=== PATIENT | female | born 1940 | race Caucasian/White ===

== ENCOUNTER 2017-11-25 15:48 | Inpatient (IN) | payer MEDICARE, SELFPAY ==
[2017-11-25] VITALS (11 sets, daily range): BP systolic 112–187; BP diastolic 56–94; PULSE 68–119; RESP 16–21; TEMP 36.9–37.6; O2SAT 96–98; BMI 30.3; BMI 30.4; BMI 30.5
--- NOTE | 2017-11-25 16:21 | CT_ITS ---
STUDY: CT BRAIN WITHOUT CONTRAST REASON FOR EXAM: Female, 77 years old. Dizziness near syncope, fall hit head RADIATION DOSAGE (If Supplied By Facility): CTDIvol = ( 44.99 ) mGy, DLP = ( 829.85 ) mGycm TECHNIQUE: Transaxial CT imaging of the brain was performed without administration of intravenous contrast material. Individualized dose optimization techniques were used for this CT. COMPARISON: None. FINDINGS: Normal soft tissue structures. Normal calvarium. There is calcification of the vertebral artery. There is calcification of the cavernous carotid arteries. There is mild cerebral atrophy with widening of the extra-axial spaces and ventricular dilatation. There are areas of decreased attenuation within the white matter tracts of the supratentorial brain, consistent with microvascular disease changes. Normal basal ganglia and thalami. Normal brainstem. There is moderate cerebellar atrophy. There is no intracranial hemorrhage. There is a focus of low attenuation within the left side basal ganglia and extending to the left side periventricular white matter compatible with old ischemic change. Normal visualized paranasal sinuses. CT/Brain/Head without Contrast IMPRESSION: Atrophy. 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 No evidence of acute hemorrhage infarct or edema. Electronically Signed: Gisela Ly MD at 17:21 EST Tel , Service support ,
--- NOTE | 2017-11-25 16:21 | EKG12_ITS ---
Test Reason : DIZZINESS Blood Pressure : / mmHG Vent. Rate : 093 BPM Atrial Rate : 093 BPM P-R Int : 166 ms QRS Dur : 088 ms QT Int : 350 ms P-R-T Axes : 091 017 050 degrees QTc Int : 435 ms Normal sinus rhythm Normal ECG Confirmed by ANABEL RICKS, MATT ([id number]), news videotape editor ATILIO ROTHMAN ([id number]) on 11/28/2017 11:22:38 AM Referred By: SAYDA Confirmed By:MATT LITTLE MD
--- NOTE | 2017-11-25 16:26 | ED.VISSUMM ---
- ER Visit Summary Date of Service: 11/25/17 Chief Complaint: Dizziness and fall History of Present Illness: The patient is a 77 F who was with her today walking on the [employer] pathway when she began to lean and eventually fell down. She struck her left face on the walking path. No loss of conscious. She broke her glasses and notes some left-sided facial abrasion and contusions. They left there and came back to [place] where she got her eyeglasses fixed. They then brought her to the emergency department. She states that she is not dizzy. She denies any sensation of lightheadedness or that the room is spinning. She states her legs feel weaker than normal and believes it is due to her recent URI. She states that for the past 2 weeks she has had cough runny nose and congestion and sore throat. She denies any chest pain or shortness of breath. She states that she has no ringing in her ears or decreased hearing. No fevers. No bowel or bladder dysfunction. She states she can lift her legs up just fine. Her tells me that she fell twice yesterday. He tells me that they parked 50 yards from the emergency department and he had to help her in. She denies any significant medical problems stating that she has had bilateral hip replacements and she takes a sleeping pill. She states that she sees Dr. Minaya once a year. Physical Examination: Blood pressure 160/89 temperature of 99 heart rate of 104 respirations are 16 pulse ox is 97% Gen: Well-nourished well-developed Head: Normocephalic left facial and forehead abrasion and contusion. No difficulty opening or closing mouth. No dental trauma. Eyes: Perrl EOMI ENT: TMs clear nasal congestion moist mucous membranes septal hematoma Neck: Supple no lymphadenopathy no JVD nontender CVS: Tachycardic regular rate rhythm no murmurs normal S1-S2 Respiratory: No distress clear to auscultation bilaterally chest nontender Abdomen: Soft nontender nondistended normal bowel sounds no masses Back: Nontender Extremity: Nontender no edema Skin: Normal color no rash Neuro: alert orientated ?3 CN II-XII intact normal strength sensation reflexes cerebellar Psych: Normal affect normal mood Test Results: EKG shows a sinus rhythm at a rate of 93. There are no concerning ST T-wave changes. Chest x-ray shows a left lingular infiltrate. White blood cell count is normal. Glucose of 140. Troponin 0 0.652. CTA demonstrates no aortic dissection or pulmonary embolism. Noted infiltrate. Emergency Department Course and Treatment: Patient received IV fluids. She also received a dose of aspirin. Orthostatics showed that with standing her pulse went from 96-119. When the patient ambulates her pulse ox is 94% but her heart rate is substantially elevated. I suspect the patient had a viral illness which then led to lingular infiltrate. This in turn has caused increased demand on the heart. Patient received Rocephin and azithromycin. Plan is admission to the hospital. DARRIN score is 2 out of 7 Impression: 1. Pneumonia 2. Sepsis 3. NSTEMI This note was generated with [employer] dictation software. It may contain incorrect words, spelling, and punctuation that were not noted in review of the chart prior to signing ED Disposition - Plan for ED Patient: Disposition: Acute Care Hospital [facility] Chief Complaint: Dizziness
--- NOTE | 2017-11-25 16:29 | ED.DCSUM_ITS ---
- ER Visit Summary Date of Service: 11/25/17 Chief Complaint: Dizziness and fall History of Present Illness: The patient is a 77 F who was with her today walking on the [employer] pathway when she began to lean and eventually fell down. She struck her left face on the walking path. No loss of conscious. She broke her glasses and notes some left-sided facial abrasion and contusions. They left there and came back to [place] where she got her eyeglasses fixed. They then brought her to the emergency department. She states that she is not dizzy. She denies any sensation of lightheadedness or that the room is spinning. She states her legs feel weaker than normal and believes it is due to her recent URI. She states that for the past 2 weeks she has had cough runny nose and congestion and sore throat. She denies any chest pain or shortness of breath. She states that she has no ringing in her ears or decreased hearing. No fevers. No bowel or bladder dysfunction. She states she can lift her legs up just fine. Her tells me that she fell twice yesterday. He tells me that they parked 50 yards from the emergency department and he had to help her in. She denies any significant medical problems stating that she has had bilateral hip replacements and she takes a sleeping pill. She states that she sees Dr. Minaya once a year. Physical Examination: Blood pressure 160/89 temperature of 99 heart rate of 104 respirations are 16 pulse ox is 97% Gen: Well-nourished well-developed Head: Normocephalic left facial and forehead abrasion and contusion. No difficulty opening or closing mouth. No dental trauma. Eyes: Perrl EOMI ENT: TMs clear nasal congestion moist mucous membranes septal hematoma Neck: Supple no lymphadenopathy no JVD nontender CVS: Tachycardic regular rate rhythm no murmurs normal S1-S2 Respiratory: No distress clear to auscultation bilaterally chest nontender Abdomen: Soft nontender nondistended normal bowel sounds no masses Back: Nontender Extremity: Nontender no edema Skin: Normal color no rash Neuro: alert orientated ?3 CN II-XII intact normal strength sensation reflexes cerebellar Psych: Normal affect normal mood Test Results: EKG shows a sinus rhythm at a rate of 93. There are no concerning ST T-wave changes. Chest x-ray shows a left lingular infiltrate. White blood cell count is normal. Glucose of 140. Troponin 0 0.652. CTA demonstrates no aortic dissection or pulmonary embolism. Noted infiltrate. Emergency Department Course and Treatment: Patient received IV fluids. She also received a dose of aspirin. Orthostatics showed that with standing her pulse went from 96-119. When the patient ambulates her pulse ox is 94% but her heart rate is substantially elevated. I suspect the patient had a viral illness which then led to lingular infiltrate. This in turn has caused increased demand on the heart. Patient received Rocephin and azithromycin. Plan is admission to the hospital. DARRIN score is 2 out of 7 Impression: 1. Pneumonia 2. Sepsis 3. NSTEMI This note was generated with [employer] dictation software. It may contain incorrect words, spelling, and punctuation that were not noted in review of the chart prior to signing ED Disposition - Plan for ED Patient: Disposition: Acute Care Hospital [facility] Chief Complaint: Dizziness
[2017-11-25] MEDS: 0.9% Normal Saline 1,000 ML 1000 ML IV (16:32)
[2017-11-25 16:53] LABS: Absolute Lymphocyte Count 1.23 X10^3/ul (0.83-4.51); Absolute Neutrophil Count 8.4 X10^3/uL (2.0-7.7); Basophil# 0.02 X10^3/uL; Basophil% 0.2 % (0-1); Hemoglobin 13.2 g/dl (12.0-15.0); Lymphocyte # 1.23 X10^3/ul (4.0); Lymphocyte % 11.2 % (19-41); Mean Corp Hgb Conc 33.8 g/gl (32-36); Mean Corpuscular Hgb 30.4 pg (27.0-32.0); Mean Corpuscular Volume 89.9 fL (81-99); Monocyte# 1.33 X10^3/uL; Monocyte% 12.1 % (0-10); Neutrophil # 8.38 X10^3/uL (2.7-7.7); Neutrophil % 76.3 % (47-70); Platelet Count 149 K/mm3 (150-450); RBC Distribution Width CV 13.5 % (11.6-14.6); RBC Distribution Width SD 44.5 fl (35.1-43.9); Red Blood Count 4.34 M/mm3 (4.2-5.4)
--- NOTE | 2017-11-25 16:55 | RAD_ITS ---
STUDY: X-RAY CHEST REASON FOR EXAM: Female, 77 years old. Cough, dizziness TECHNIQUE: PA and lateral views of the chest. COMPARISON: None. FINDINGS: There is a patchy focal lingular opacity. There is no demonstrated pleural abnormality. Normal size heart. Normal mediastinum and gabby. Normal visualized pulmonary arteries. There is atherosclerotic calcification of the aortic arch with tortuosity. There are diffuse degenerative changes of the visualized thoracic spine. Normal visualized ribs, clavicles, and shoulders. There is no demonstrated abnormality of the visualized soft tissue structures of the upper abdomen. RAD/Chest PA and Lateral IMPRESSION: Findings are most consistent with lingular pneumonia. N.B. : The above information has been verbally conveyed by Gisela Ly MD to Dr. Troy Stern, Referring Physician, on 11/25/2017 17:58:07 (ET). Electronically Signed: Gisela Ly MD at 17:43 EST Tel , Service support , N.B. : The above information has been verbally conveyed by Gisela Ly MD to Dr. Troy Stern, Referring Physician, on 11/25/2017 17:58:07 (ET).
[2017-11-25 16:59] LABS: ALB/GLOB Ratio 0.7 RATIO (0.9-2.4); AST(SGOT) 93 U/L (15-37); Alanine Aminotransfer ALT/SGPT 27 U/L (13-56); Albumin, Serum 3.3 g/dL (3.2-5.0); Alkaline Phosphatase 63 U/L (45-117); Anion Gap 8 (5-15); BUN 19 mg/dL (7-18); BUN/Creat Ratio 20.3 RATIO (10-20); Calcium,Total 8.9 mg/dL (8.5-10.1); Chloride 101 mmol/L (98-107); Creatinine, Serum 0.93 mg/dL (0.55-1.02); EST Glomerular Filtration Rate 62 mL/min (>60); Est Glom Filt Rate - Afr Amer 75 mL/min (>60); Estimated Creatinine Clearance 44.86 ml/min; Globulin 4.7 g/dL (2.2-4.2); Glucose 140 mg/dL (70-110); POSITIVE COUNT NO; POSITIVE DIFFERENTIAL NO; POSITIVE MORPHOLOGY NO; Potassium 3.5 mmol/L (3.5-5.1); Sodium Level 133 mmol/L (136-145)
--- NOTE | 2017-11-25 17:24 | CT_ITS ---
STUDY: CTA CHEST/THORAX REASON FOR EXAM: Female, 77 years old. Dyspnea. RADIATION DOSAGE (If Supplied By Facility): CTDIvol = ( 12.79 ) mGy, DLP = ( 411.38 ) mGycm TECHNIQUE: The examination was performed with the intravenous administration of 100 ml of Isovue 370 contrast material. Post-processing of the angiographic images was performed, with multiplanar reformation and 3D reconstruction. Individualized dose optimization techniques were used for this CT. COMPARISON: PA and lateral chest x-ray 1658 hours. FINDINGS: Normal enhancement of the main pulmonary artery and right and left pulmonary arteries. Normal enhancement of the bilateral peripheral pulmonary arteries. There is no demonstrated pulmonary embolism. There is atherosclerotic calcification of the aortic arch, proximal brachiocephalic arteries, and descending thoracic aorta.. There is no demonstrated aortic dissection. The heart size is upper normal. There are calcifications of the coronary arteries. 18 x 9 x 7 mm precarinal lymph node and 17.5 x 8 x 11 mm low pretracheal lymph node are likely reactive. There are nonspecific subcentimeter lymph nodes in the aorticopulmonary window. Normal hilar regions. Normal visualized trachea and right lung bronchi. There is mild narrowing of the central bronchial branch to the lingula of the left upper lobe. There is a segmental pneumonic infiltrate with air bronchograms in the lingula of the left upper lobe, correlating to the density seen on chest x-ray. There is curvilinear scarring or subsegmental atelectasis in the anterior inferior right middle lobe. Minor pleural parenchymal scarring in the posterior margin of the left base. No dependent pleural effusion. Normal chest wall structures. There are degenerative changes of the thoracic spine, and a 14-15 degree dextroscoliosis centered at T7. Subcentimeter low densities in the subcapsular anterior left lobe of the liver (series 2 image 42) and visualized right lobe (images 15 and 2) may be cysts or hemangiomata. There is a small hiatal hernia. CT/CTA Chest W/WO Contrast IMPRESSION: 1. No demonstrated pulmonary embolism or arterial dissection. 2. Lingular pneumonic infiltrate, correlating to the density seen on chest x-ray. 3. Additional scarring in the lung bases, as noted. 4. Atherosclerotic calcifications of the coronary arteries, thoracic aorta, and proximal brachiocephalic arteries. 5. Subcentimeter low densities in the liver may be cysts or hemangiomata. 6. Small hiatal hernia. Electronically Signed: Mo Mccray MD at 19:02 EST , Service support ,
[2017-11-25 17:39] LABS: Color, Urine Yellow (Yellow); Glucose, Dipstick Normal (Normal); Ketone-Dipstick 5 mg/dl (Negative); Leukocyte Esterase-Dipstick 100 /ul (Negative); Nitrite-Dipstick Negative (Negative); Occult Blood-Urine 250 /ul (Negative); Protein-Dipstick 500 mg/dl (Negative); Specific Gravity, Urine 1.025 (1.002-1.030); Squamous Epithelial Cells - UA 0 SEEN /hpf (5-10); Urine Bilirubin Dipstick Negative (Negative); Urine Clarity Sl. Cloudy (Clear); Urine Urobilinogen Normal (Normal)
[2017-11-25 17:51] LABS: Mucous, Urine 1+ /hpf (<or=2+); White Blood Cells 0-5 SEEN /hpf (0-5)
[2017-11-25 17:52] LABS: Bacteria RARE /hpf (None Seen); Red Blood Cells-Urine 5-10 SEEN /hpf (0-5)
[2017-11-25] MEDS: Aspirin 325 MG Tablet PO (18:11)
[2017-11-25 18:47] LABS: Lactic Acid 1.4 mmol/L (0.4-2.0)
--- NOTE | 2017-11-25 20:32 | HP.PCM_ITS ---
Problem List (1) Near syncope Status: Acute (2) Fall Status: Acute (3) Generalized weakness Status: Acute (4) Left lingularlobe CAP Status: Acute (5) Elevated troponin I level Status: Acute (6) Hypertension Status: Chronic (7) Prediabetes Status: Chronic History of Present Illness Date of Admission: 11/25/17 Chief Complaint: Dizziness and fall The patient is a 77 year old F with past medical history as mentioned above but no significant cardiac or pulmonary history came to ER because she fell down and hit the left side of the face. She felt dizzy and felt her both legs were weak and fell down on [employer] glass. Besides that, she has been sick with cold and sore throat for last 3 weeks. Initially she had cold, runny nose and sore throat for for 5 days and then went away. Again she had similar symptoms this week. She has history of bilateral hip replacement but has never felt that week. In ED, she had chest x-ray and CT chest done. CT chest shows left lingular infiltrate suggestive of pneumonia but no PE/aortic dissection. WBC count is normal. She had high troponin 0 0.65. EKG shows normal sinus rhythm at [address]-T changes suggestive of ischemia. When I saw her, she denies dizziness, vertigo. Orthostatic vital signs showed her pulse went up from 96-119 and blood pressure 159/78-185/71 from lying to standing up position. She is further admitted. [] Past Medical History Past Medical History (Chronic Problems): Chronic Problems Hypertension (Chronic) Prediabetes (Chronic) Allergies No Known Allergies Allergy (Verified 11/25/17 15:52) Home Medications: Ambulatory Orders Medication Instructions Recorded Brimonidine Tartrate 0.2% 1 drop EACH EYE DAILY 11/25/17 [Brimonidine 0.2% 5Ml Bottle] Dorzolamide HCl/Timolol Maleat 1 drop EACH EYE BID 11/25/17 [Dorzolamide-Timolol Eye Drops] Latanoprost 0.005% [Xalatan 11/25/17 Opthalmic] Temazepam [Temazepam] 30 mg PO QHS 11/25/17 Lives: Spouse/ Significant Other Smoking Status: Never smoker Alcohol: None - *Family History Paternal History Items: No pertinent history Review of Systems Constitutional: Reports: Chills, Malaise, Weakness. Denies: Anorexia, Fever HEENT: Denies: Head Aches, Sinus Congestion, Sinus Drainage Cardiovascular: Denies: Chest Pain, Palpitations Respiratory: Reports: Cough, Shortness of breath upon exertion. Denies: Shortness of breath at rest, Sputum production Gastrointestinal: Denies: Abdominal Pain, Nausea, Vomiting Genitourinary: Denies: Dysuria Musculoskeletal: Reports: Joint Pain. Denies: Joint Tenderness Skin: Reports: Skin Changes - Bruise. Denies: Rash, Wounds Neurological: Denies: Numbness, Tingling, Focal weakness Psychiatric: Denies: Anxiety, Depression, Homicidal Ideations, Suicidal Ideations Hematologic/ Lymphatic: Denies: Easy Bruising, Easy Bleeding VTE Information - Inpt Only VTE Present on Admission: No VTE Mechan Device Prophylaxis: SCD's VTE Pharm Prophylaxis ordered?: Yes Patient Problems: Active and Suspected Problems Near syncope (Acute) Fall (Acute) Generalized weakness (Acute) Left lingularlobe CAP (Acute) Elevated troponin I level (Acute) - Physical Exam General: Alert, Oriented x3, Cooperative HEENT: Atraumatic, PERRLA, EOMI, Normocephalic Oral: Dry Mucosa Neck: Supple, No JVD, Negative Carotid Bruits Lungs: No rhonchi, Diminished, Rales - Coarse rales present on the left infra axillary region Cardiovascular: Regular rate, No murmurs Abdomen: Bowel Sounds Present, Soft, Non Tender Extremities: Capillary Refill Less than 3 Seconds, Edema - Bilateral lower legs edema Skin: No rashes, No breakdown Musculoskeletal: No Tenderness to Palpation of Joints or Extremities, Arthritic Changes Neurological: Cranial nerves II-XII grossly intact, - - Bilateral lower legs weakness, 3/5. Psych/Mental Status: Normal Affect, Appropriate Vital Signs Temp Pulse Resp BP Pulse Ox 99.7 F H 86 20 H 180/72 H 97 11/25/17 20:07 11/25/17 20:07 11/25/17 20:07 11/25/17 20:08 11/25/17 20:07 Oxygen Delivery Method Room Air Weight: 183 lb 3.2 oz Body Mass Index (BMI) 30.4 Assessment/Plan Active and Suspected Problems Near syncope (Acute) Fall (Acute) Generalized weakness (Acute) Left lingularlobe CAP (Acute) Elevated troponin I level (Acute) The patient is a 77 year old F with past medical history as mentioned above but no significant cardiac or pulmonary history came to ER because she fell down and hit the left side of the face. She felt dizzy and felt her both legs were weak and fell down on [employer] glass. Besides that, she has been sick with cold and sore throat for last 3 weeks. Initially she had cold, runny nose and sore throat for for 5 days and then went away. Again she had similar symptoms this week. She has history of bilateral hip replacement but has never felt that week. In ED, she had chest x-ray and CT chest done. CT chest shows left lingular infiltrate suggestive of pneumonia but no PE/aortic dissection. WBC count is normal. She had high troponin 0 0.65. EKG shows normal sinus rhythm at [address]-T changes suggestive of ischemia. When I saw her, she denies dizziness, vertigo. Orthostatic vital signs showed her pulse went up from 96-119 and blood pressure 159/78-185/71 from lying to standing up position. She is further admitted to the PCU floor. 1 generalized weakness most probably due to Left lingular lobe, community acquired pneumonia: Patient is being admitted on the monitored bed. Started on IV Rocephin and Zithromax as per the protocol with orders of lactic acid, sputum culture, urinary antigens and bronchodilator as needed. Mucinex for symptomatic cough. 2. High troponin with no ischemic changes on EKG and no chest pain but concern of NSTEMI: Patient denies any previous CAD history or CHF. Cycle cardiac enzymes. 2D echo ordered. Started on aspirin, Plavix, beta-madhu and ARB and nitro ointment as needed for chest pain. Cardiology consult. Low DARRIN score 2/7. BNP, fasting lipid profile and TSH ordered 3. Generalized weakness and fall probably due to pneumonia: PT and OT ordered. IV fluid normal saline for dehydration. Treat the underlying cause. 4. Elevated blood pressure possible undiagnosed hypertension: Started on valsartan 80 mg daily. Titrate the dose. 5. Elevated blood sugar, possible prediabetes/diabetes mellitus type 2: Blood sugar in BMP is 140 mg percent. A1c ordered. Accu-Chek before meals and at bedtime and cover with NovoLog sliding scale. 6. 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 DVT prophylaxis: Moderate risk, Lovenox 40 mils subcu daily and bilateral SCDs. Code Visit Inpatient E&M: 98512 Init Hosp L3
[2017-11-25 21:32] LABS: International Normalized Ratio 1.2; Prothrombin Time (Protime)PT. 14.8 SECONDS (11.7-14.9)
[2017-11-25 21:33] LABS: Partial Thromboplast Time 37.6 Seconds (24.1-36.2)
[2017-11-25 21:50] LABS: Lactic Acid 1.1 mmol/L (0.4-2.0); Magnesium 1.7 mg/dL (1.6-2.6)
[2017-11-25] MEDS: 0.9% NaCl Peripheral Flush Adult/Peds IV (21:53)
[2017-11-25] MEDS: 0.9% Normal Saline 1,000 ML 100 ML IV (21:54)
[2017-11-25] MEDS: Enoxaparin 40 MG/0.4 ML Syringe SC (21:59)
[2017-11-25] MEDS: BRIMONIDINE 0.2% 5ML BOTTLE 2 DRP EACH EYE (22:00)
[2017-11-25] MEDS: Carvedilol 6.25 MG Tablet PO (22:01)
[2017-11-25] MEDS: guaiFENesin 600 MG Tablet 1200 MG PO (22:01)
[2017-11-25] MEDS: Latanoprost 0.005% 1 Bottle 1 DRP EACH EYE (22:02)
[2017-11-25] MEDS: Atorvastatin Calcium 40 MG Tablet PO (22:02)
[2017-11-25] MEDS: Famotidine 20 MG Tablet PO (22:03)
[2017-11-25] MEDS: Temazepam 15 MG Capsule 30 MG PO (22:10)
--- NOTE | 2017-11-25 22:17 | EKG12_ITS ---
Test Reason : MORNING EKG Blood Pressure : / mmHG Vent. Rate : 081 BPM Atrial Rate : 081 BPM P-R Int : 182 ms QRS Dur : 096 ms QT Int : 382 ms P-R-T Axes : 067 014 032 degrees QTc Int : 443 ms Sinus rhythm with Premature supraventricular complexes Otherwise normal ECG No previous ECGs available Confirmed by CAMILLE RAMIREZ ([id number]), order editor ATILIO ROTHMAN ([id number]) on 11/28/2017 12:05:36 PM Referred By: RAVINDER Confirmed By:CAMILLE RAMIREZ
[2017-11-25 22:21] LABS: Bedside Glucose 129 mg/dL (70-110)
[2017-11-25 22:37] LABS: BNP,B-Type NATRIURETIC PEPTIDE 140.1 pg/mL (0-100)
[2017-11-26] VITALS (10 sets, daily range): BP systolic 129–171; BP diastolic 60–89; PULSE 68–80; RESP 16–18; TEMP 37.2–37.9; O2SAT 95–98
--- NOTE | 2017-11-26 05:55 | ECHOD_ITS ---
Reason For Study: ELEVATED TROPONIN Procedure This was a 2D Doppler, Color Flow transthoracic echocardiogram. The exam was of poor technical quality due to body habitus. The study was technically difficult. Exam performed portable in patient room. Left Ventricle Normal LV size. Left ventricular systolic function is normal. The estimated ejection fraction is 65 %. No regional wall motion abnormalities noted. Right Ventricle Normal RV size. Normal systolic function. Atria Normal left atrium. Normal right atrium. No doppler evidence for ASD. Mitral Valve There is mild to moderate mitral annular calcification. Extension of the mitral annular calcification onto the posterior mitral valve leaflet. Trivial mitral valve insufficiency. Tricuspid Valve Normal tricuspid valve. Trivial tricuspid valve insufficiency. Right ventricular systolic pressure estimated to be 30 mmHg. Aortic Valve The aortic valve is not well visualized, however, based upon the 2D echocardiographic images obtained there appears to be mild focal thickening, calcification, and partial restriction. Mild aortic stenosis. Trivial aortic valve insufficiency. Pulmonic Valve The pulmonic valve is not well visualized. Great Vessels Normal sized aortic root. Pericardium/Pleural No pericardial effusion. MMode/2D Measurements & Calculations LVIDd: 4.4 cm IVSd: 0.94 cm LVOT diam: 2.0 cm LVIDs: 3.2 cm LVPWd: 1.0 cm LVOT area: 3.1 cm2 RVDd: 3.0 cm FS: 27.6 % Ao root diam: 2.6 cm LAV(MOD-bp): 61.0 ml LA A4 area: 19.7 cm2 LA dimension: 3.1 cm LAV(MOD-bp) Indexed: 32.0 ml/m2 LAV(MOD-sp2): 61.5 ml LAV(MOD-sp4): 61.2 ml RA A4 area: 14.8 cm2 Doppler Measurements & Calculations MV E max bari: 97.3 cm/sec Lat Peak E' Bari: 7.6 cm/sec Med Peak E' Bari: 7.9 cm/sec MV A max bari: 115.1 cm/sec E/E' lat: 12.9 E/E' med: 12.4 MV E/A: 0.85 Ao V2 max: 267.8 cm/sec LV V1 max: 141.9 cm/sec SV(LVOT): 78.0 ml Ao max P.7 mmHg LV V1 max P.1 mmHg Ao V2 mean: 182.6 cm/sec LV V1 mean P.3 mmHg Ao mean P.9 mmHg LV V1 mean: 98.1 cm/sec Ao V2 VTI: 52.8 cm LV V1 VTI: 25.3 cm EFFIE(I,D): 1.5 cm2 EFFIE(V,D): 1.6 cm2 PA V2 max: 107.9 cm/sec TR max bari: 258.1 cm/sec TR max P.7 mmHg Interpretation Summary The study was technically difficult. Left ventricular systolic function is normal. The estimated ejection fraction is 65 %. There is mild to moderate mitral annular calcification. Extension of the mitral annular calcification onto the posterior mitral valve leaflet. Trivial mitral valve insufficiency. Trivial tricuspid valve insufficiency. The aortic valve is not well visualized, however, based upon the 2D echocardiographic images obtained there appears to be mild focal thickening, calcification, and partial restriction. Mild aortic stenosis. Trivial aortic valve insufficiency. Right ventricular systolic pressure estimated to be 30 mmHg. Ordering Physician: Manny Murdock Referring Physician: Eh Huddleston Chi Performed By: Berta Walls RDCS, RVT
[2017-11-26 07:01] LABS: Bedside Glucose 116 mg/dL (70-110)
[2017-11-26 07:28] LABS: Absolute Lymphocyte Count 1.11 X10^3/ul (0.83-4.51); Absolute Neutrophil Count 4.2 X10^3/uL (2.0-7.7); Basophil# 0.01 X10^3/uL; Basophil% 0.2 % (0-1); Eosinophil# 0.11 X10^3/uL; Eosinophils% 1.7 % (0-5); Hematocrit 34.3 % (37-47); Hemoglobin 11.5 g/dl (12.0-15.0); Lymphocyte # 1.11 X10^3/ul (4.0); Lymphocyte % 17.3 % (19-41); Mean Corp Hgb Conc 33.5 g/gl (32-36); Mean Corpuscular Hgb 30.4 pg (27.0-32.0); Mean Corpuscular Volume 90.7 fL (81-99); Mean Platelet Vol. 11.4 fl (6.2-12.0); Monocyte# 0.96 X10^3/uL; Neutrophil # 4.21 X10^3/uL (2.7-7.7); Neutrophil % 65.6 % (47-70); Platelet Count 120 K/mm3 (150-450); RBC Distribution Width CV 13.7 % (11.6-14.6); RBC Distribution Width SD 44.4 fl (35.1-43.9); Red Blood Count 3.78 M/mm3 (4.2-5.4); White Blood Count 6.4 K/mm3 (4.4-11.0)
[2017-11-26 07:37] LABS: POSITIVE COUNT NO; POSITIVE DIFFERENTIAL NO; POSITIVE MORPHOLOGY NO
[2017-11-26 07:52] LABS: Hemoglobin A1c 5.7 % (4.2-6.3)
[2017-11-26 07:59] LABS: Cholesterol 181 mg/dL (200); High Density Lipoprotein 38 mg/dL; Thyroid Stim Hormone (TSH) 1.17 uIU/mL (0.358-3.74); Triglycerides 127 mg/dL; Very Low Density Lipoprotein 25 mg/dL (5-40)
[2017-11-26] MEDS: 0.9% Normal Saline 1,000 ML 100 ML IV ×2 (08:22→20:39)
[2017-11-26] MEDS: BRIMONIDINE 0.2% 5ML BOTTLE 2 DRP EACH EYE ×2 (10:06→18:08)
[2017-11-26] MEDS: guaiFENesin 600 MG Tablet 1200 MG PO ×2 (10:16→22:37)
[2017-11-26] MEDS: Aspirin E.C. 81 MG Tablet PO (10:16)
[2017-11-26] MEDS: Carvedilol 6.25 MG Tablet PO ×2 (10:16→22:36)
[2017-11-26] MEDS: TICAGRELOR 90 MG TABLET 180 MG PO (10:16)
[2017-11-26] MEDS: Ceftriaxone 1 GM/50 ML BAG IV (10:17)
[2017-11-26] MEDS: Famotidine 20 MG Tablet PO ×2 (10:17→22:37)
[2017-11-26 12:26] LABS: Bedside Glucose 113 mg/dL (70-110)
[2017-11-26] MEDS: Enoxaparin 80 MG/0.8 ML Syringe SC ×2 (13:00→22:36)
--- NOTE | 2017-11-26 14:09 | CASEMGMT ---
LOULOU VERA Assessment complete. See assessment link. Disposition Plan: Patient would like to return home, with spouse. Patient denies use of DME at home, though she does have a walker and cane available. PT/OT ordered. Patient states she has received POA/Living Will papers, but has not yet completed. Denies need for assistance. LOULOU VERA will continue to follow for discharge planning needs.
--- NOTE | 2017-11-26 15:28 | CASEMGMT ---
According to [employer] website, the following are in-network tertiary facilities: [facility], [place], [facility], [place], [facility], [facility], [place], [facility], and . Robin JAMIL CM
--- NOTE | 2017-11-26 16:12 | PN_ITS ---
Patient Problems: Active and Suspected Problems Near syncope (Acute) Fall (Acute) Generalized weakness (Acute) Left lingularlobe CAP (Acute) Elevated troponin I level (Acute) Subjective: Pt has a mildly productive cough but feels no SOB currently. She also denies CP , tightness, or pressure. No pain with deep inspiration. She has been very weak the past few days leading up to admission. No nausea/vomiting. No fevers or chills. - Physical Exam General: Alert, Oriented x3, Cooperative HEENT: Atraumatic, PERRLA, EOMI, Normocephalic Neck: Supple, No JVD, Negative Carotid Bruits Lungs: Clear to auscultation, Normal air movement Cardiovascular: Regular rate, No murmurs, Murmur - There is a 2 out of 6 systolic murmur best heard over the right sternal border at the second intercostal space Abdomen: Bowel Sounds Present, Soft, Non Tender Extremities: No edema, Capillary Refill Less than 3 Seconds Skin: No rashes, No breakdown Musculoskeletal: No Tenderness to Palpation of Joints or Extremities Neurological: Cranial nerves II-XII grossly intact Psych/Mental Status: Normal Affect, Appropriate Vital Signs Temp Pulse Resp BP Pulse Ox 98.9 F 68 18 171/64 H 95 11/26/17 09:45 11/26/17 15:07 11/26/17 09:45 11/26/17 09:45 11/26/17 09:45 Oxygen Delivery Method Room Air Weight: 83.089 kg Body Mass Index (BMI) 30.4 Intake and Output for Last 24 Hours 11/24/17 11/25/17 11/26/17 23:59 23:59 23:59 Intake Total 1570 / 1570 Balance 1570 / 1570 Microbiology Past 72 Hours 11/26/17 06:50 Streptococcus pneumoniae Antigen (M - Final Urine, Clean Catch 11/26/17 06:50 Legionella Antigen - Final Urine, Clean Catch Laboratory Tests Past 24 Hrs 11/25/17 11/25/17 11/25/17 21:04 21:04 21:04 WBC RBC Hgb Hct MCV MCH MCHC RDW RDW Differential Plt Count MPV Immature Gran % (Auto) Neut % (Auto) Lymph % (Auto) [place] % (Auto) Eos % (Auto) Baso % (Auto) Absolute Neuts (auto) Absolute Lymphs (auto) Total Counted PT INR APTT Hemoglobin A1c Lactic Acid 1.1 Magnesium 1.7 Troponin I B-Natriuretic Peptide 140.1 H Triglycerides Cholesterol LDL Cholesterol VLDL Cholesterol HDL Cholesterol TSH 11/25/17 11/25/17 11/26/17 21:04 21:04 00:35 WBC RBC Hgb Hct MCV MCH MCHC RDW RDW Differential Plt Count MPV Immature Gran % (Auto) Neut % (Auto) Lymph % (Auto) [place] % (Auto) Eos % (Auto) Baso % (Auto) Absolute Neuts (auto) Absolute Lymphs (auto) Total Counted PT 14.8 INR 1.2 APTT 37.6 H Hemoglobin A1c Lactic Acid Magnesium Troponin I 1.55 H* 1.43 H* B-Natriuretic Peptide Triglycerides Cholesterol LDL Cholesterol VLDL Cholesterol HDL Cholesterol TSH 11/26/17 11/26/17 11/26/17 06:28 06:28 06:28 WBC 6.4 RBC 3.78 L Hgb 11.5 L Hct 34.3 L MCV 90.7 MCH 30.4 MCHC 33.5 RDW 13.7 RDW Differential 44.4 H Plt Count 120 L MPV 11.4 Immature Gran % (Auto) 0.200 Neut % (Auto) 65.6 Lymph % (Auto) 17.3 L [place] % (Auto) 15.0 H Eos % (Auto) 1.7 Baso % (Auto) 0.2 Absolute Neuts (auto) 4.2 Absolute Lymphs (auto) 1.11 Total Counted Not Reportable PT INR APTT Hemoglobin A1c 5.7 Lactic Acid Magnesium Troponin I 1.05 H* B-Natriuretic Peptide Triglycerides 127 Cholesterol 181 LDL Cholesterol 118 VLDL Cholesterol 25 HDL Cholesterol 38 L TSH 1.17 POC Glucose 11/26/17 11/26/17 11/25/17 12:15 06:48 22:12 POC Glucose 113 H 116 H 129 H Assessment/Plan Active and Suspected Problems Near syncope (Acute) Fall (Acute) Generalized weakness (Acute) Left lingularlobe CAP (Acute) Elevated troponin I level (Acute) 1. Elevated troponin concerning for non-ST segment elevation myocardial infarction-troponin has peaked at 1.55 and is trending down. She also has a mildly elevated BNP at 140.1. EKG with no acute change. Patient remains on telemetry and is being followed by cardiology with a tentative plan for heart catheterization tomorrow. She is on aspirin and therapeutic Lovenox and Nitro- Bid as needed. Continue Coreg, Diovan, atorvastatin. Currently no chest pain and resting comfortably with no shortness of breath. 2. Community-acquired pneumonia-left lingular infiltrate noted on CT and chest x-ray-she has no white count, fever, or shortness of breath. She has a mildly productive cough. She has been very weak leading up to this admission likely secondary to the community-acquired pneumonia. Continue azithromycin and Rocephin. Urine antigens are negative, blood culture pending, influenza screen is negative. mucinex. 3. Debility-secondary to #2. PT OT. 4. Anxiety - Temazepam 5. Hypertension-remains elevated despite newly started medications. We will add as needed hydralazine. DVT ppx: Therapeutic Lovenox DC planning: Pending results of heart cath This patient was seen by aNseem Balderas PA-C under the supervision of Doctor Raudel.
[2017-11-26 16:46] LABS: Bedside Glucose 132 mg/dL (70-110)
--- NOTE | 2017-11-26 17:21 | PCM.CONS.C ---
Problem List (1) Elevated troponin I level Status: Acute (2) Near syncope Status: Acute (3) Hypertension Status: Chronic (4) Left lingularlobe CAP Status: Acute Reason for Consult Date of Consultation: 11/26/17 History of Present Illness: The patient is a 77 year old white female who claims to have no significant past medical history with the exception of possible hypertension and bilateral hip replacement surgery who is referred for evaluation of abnormal troponin I levels and a near syncopal event. The patient states that she was walking with her , bumped into him, and fell. She had abrasions of her left face. She does not recall having any concerning chest discomfort or difficulty breathing or feeling lightheaded, dizzy, or faint. She states she did not lose consciousness. She notes her was concerned that she was dizzy. She was brought to the emergency department for evaluation. Upon evaluation there were concerns that she had abnormal troponin I levels and an ECG with no obvious ECG changes. She was also subsequently noted to have what appeared to be a left lingular infiltrate/pneumonia. She was placed in the PCU for further evaluation and care. She has denied any obvious coughing or sputum production. There is been no orthopnea or PND or peripheral pitting edema. She denies any past cardiovascular history or undergoing cardiovascular testing other than ECGs. Her troponin I levels were noted to be positive. They have declined. Her cardiac rhythm has been sinus rhythm. Her ECG has noted no new acute ECG changes. [] Past Medical History Allergies/Adverse Reactions: Allergies No Known Allergies Allergy (Verified 11/25/17 15:52) Home Medications: Ambulatory Orders Medication Instructions Recorded Brimonidine Tartrate 0.2% 2 drop EACH EYE BID 11/25/17 [Brimonidine 0.2% 5Ml Bottle] Dorzolamide HCl/Timolol Maleat 1 drop EACH EYE BID 11/25/17 [Dorzolamide-Timolol Eye Drops] Latanoprost 0.005% [Xalatan 1 drop EACH EYE QHS 11/25/17 Opthalmic] Temazepam [Temazepam] 30 mg PO QHS 11/25/17 Past Medical History (Chronic Problems): Chronic Problems Hypertension (Chronic) Prediabetes (Chronic) - *Family History Paternal History Items: No pertinent history Lives: Spouse/ Significant Other Smoking Status: Never smoker Alcohol: None Subjectve: 77-year-old white female who appears to be resting comfortably at the moment in no acute distress. Objective: Vital Signs Temp Pulse Resp BP Pulse Ox 98.9 F 68 18 171/64 H 95 11/26/17 09:45 11/26/17 15:07 11/26/17 09:45 11/26/17 09:45 11/26/17 09:45 Oxygen Delivery Method Room Air Weight: 183 lb 2.878 oz Body Mass Index (BMI) 30.4 Intake and Output for Last 24 Hours 11/24/17 11/25/17 11/26/17 23:59 23:59 23:59 Intake Total 1570 / 1570 Balance 1570 / 1570 General: Awake, Alert, Oriented x 3, Cooperative, No Acute Distress Neck: No JVD Lungs: Clear to auscultation Cardiovascular: Regular Rhythm, Normal S1, Normal S2 Murmur Murmur: Grade 3/6, Harsh, Mid Systolic, LLSB, LVOT, Sternal Notch Vascular: No Carotid Bruits Abdomen: Bowel Sounds Present, Soft, Non Tender Extremities: No Cyanosis, No Clubbing, No edema Neurological: No Focal Motor or Sensory Deficit 11/25/17 21:04: Magnesium 1.7 11/25/17 21:04: B-Natriuretic Peptide 140.1 H 11/25/17 21:04: Lactic Acid 1.1 11/25/17 21:04: PT 14.8, INR 1.2, APTT 37.6 H 11/25/17 21:04: Troponin I 1.55 H* 11/26/17 00:35: Troponin I 1.43 H* 11/26/17 06:28: WBC 6.4, RBC 3.78 L, Hgb 11.5 L, Hct 34.3 L, MCV 90.7, MCH 30.4, MCHC 33.5, RDW 13.7, RDW Differential 44.4 H, Plt Count 120 L, MPV 11.4, Immature Gran % (Auto) 0.200, Neut % (Auto) 65.6, Lymph % (Auto) 17.3 L, [place] % (Auto) 15.0 H, Eos % (Auto) 1.7, Baso % (Auto) 0.2, Absolute Neuts (auto) 4.2, Total Counted Not Reportable 11/26/17 06:28: Hemoglobin A1c 5.7 11/26/17 06:28: Troponin I 1.05 H*, Triglycerides 127, Cholesterol 181, LDL Cholesterol 118, VLDL Cholesterol 25, HDL Cholesterol 38 L Rhythm: Sinus rhythm EKG: Sinus rhythm; no acute ECG changes ECHO: Left ventricle: Normal with an estimated LVEF of 65%; mild aortic valve stenosis; please see official report CXR: Preliminary review: Left lingular area infiltrate: Please see official report Assessment/Plan 1. Abnormal troponin I levels The patient does have abnormal troponin I levels. It is unclear at the moment whether this represents a true acute coronary syndrome event (type I) versus a type II event being brought out by her noncardiovascular issues including her pulmonary related issues. At the present time she is being followed. Her cardiac enzymes are decreasing. Her ECG is demonstrated no acute changes. Her transthoracic echocardiogram was demonstrated no obvious left ventricular regional wall motion abnormalities. She will continue medical management for the possibility of underlying CAD. Ideally this would include agents such as aspirin, antiplatelet therapy, nitrates as needed, beta-blockers, lipid-lowering agents, anticoagulants, all as deemed appropriate. She would also be considered for further evaluation with diagnostic cardiac catheterization to define her coronary anatomy. However it may be reasonable to care for her underlying acute pulmonary process/infectious process in the interim. 2. Near syncope The patient did fall. She states her felt that she was acting dizzy . It is unclear as to whether or not she truly had a near syncopal event. She states she did not lose consciousness. The etiology is uncertain whether it represents relationship to underlying cardiovascular disease or noncardiovascular disease such as her pulmonary disease, etc. At the moment she will continue to be followed. This will include monitoring her cardiac rate and rhythm for any obvious changes. She will continue additional cardiovascular evaluation as noted above per 3. Hypertension She does have a history of hypertension. She states that she has been told this in the past but has not wanted to be on medical therapy in the past. Her blood pressure will be evaluated and she will be treated as deemed appropriate. 4. Pneumonia She is undergoing evaluation care per internal medicine for a left-sided pneumonia. Comment: The above was discussed and reviewed with the patient. This note was generated with [employer] software. Every effort was made to ensure accuracy, however, computerized geophysical operator mistakes may persist.
[2017-11-26] MEDS: Atorvastatin Calcium 40 MG Tablet PO (22:37)
[2017-11-26] MEDS: Glucerna Shake 120 ML LIQUID PO (22:39)
[2017-11-26] MEDS: Latanoprost 0.005% 1 Bottle 1 DRP EACH EYE (22:45)
[2017-11-26] MEDS: Temazepam 15 MG Capsule 30 MG PO (22:48)
[2017-11-26 22:56] LABS: Bedside Glucose 136 mg/dL (70-110)
[2017-11-27] VITALS (10 sets, daily range): BP systolic 114–167; BP diastolic 71–79; PULSE 64–82; RESP 18–20; TEMP 36.6–37.2; O2SAT 96–99
[2017-11-27 05:35] LABS: Absolute Lymphocyte Count 1.52 X10^3/ul (0.83-4.51); Absolute Neutrophil Count 3.5 X10^3/uL (2.0-7.7); Basophil# 0.02 X10^3/uL; Basophil% 0.3 % (0-1); Eosinophil# 0.17 X10^3/uL; Eosinophils% 2.8 % (0-5); Hematocrit 31.8 % (37-47); Hemoglobin 10.8 g/dl (12.0-15.0); Lymphocyte # 1.52 X10^3/ul (4.0); Lymphocyte % 25.2 % (19-41); Mean Corpuscular Hgb 30.9 pg (27.0-32.0); Mean Corpuscular Volume 91.1 fL (81-99); Mean Platelet Vol. 10.9 fl (6.2-12.0); Monocyte# 0.81 X10^3/uL; Monocyte% 13.4 % (0-10); Neutrophil % 58.1 % (47-70); Platelet Count 134 K/mm3 (150-450); RBC Distribution Width CV 13.8 % (11.6-14.6); RBC Distribution Width SD 44.6 fl (35.1-43.9); Red Blood Count 3.49 M/mm3 (4.2-5.4)
[2017-11-27 05:37] LABS: POSITIVE COUNT NO; POSITIVE DIFFERENTIAL NO; POSITIVE MORPHOLOGY NO
--- NOTE | 2017-11-27 05:55 | EKG12_ITS ---
Test Reason : AM EKG Blood Pressure : / mmHG Vent. Rate : 076 BPM Atrial Rate : 076 BPM P-R Int : 180 ms QRS Dur : 104 ms QT Int : 376 ms P-R-T Axes : 065 015 026 degrees QTc Int : 423 ms Normal sinus rhythm Normal ECG When compared with ECG of 25-NOV-2017 16:29, MANUAL COMPARISON REQUIRED, DATA IS UNCONFIRMED Confirmed by ORI RICKS, CODEY ([id number]), editor continuity and script ATILIO ROTHMAN ([id number]) on 12/03/2017 8:47:48 AM Referred By: RAVINDER Confirmed By:CODEY REHMAN MD
[2017-11-27 06:00] LABS: Anion Gap 8 (5-15); BUN 11 mg/dL (7-18); BUN/Creat Ratio 21.2 RATIO (10-20); Calcium,Total 7.9 mg/dL (8.5-10.1); Chloride 107 mmol/L (98-107); Creatinine, Serum 0.52 mg/dL (0.55-1.02); EST Glomerular Filtration Rate 121 mL/min (>60); Est Glom Filt Rate - Afr Amer 147 mL/min (>60); Estimated Creatinine Clearance 41.72 ml/min; Glucose 110 mg/dL (70-110); Potassium 3.2 mmol/L (3.5-5.1); Sodium Level 139 mmol/L (136-145)
[2017-11-27] MEDS: 0.9% Normal Saline 1,000 ML 100 ML IV ×2 (07:03→17:51)
[2017-11-27] MEDS: Enoxaparin 80 MG/0.8 ML Syringe SC ×2 (07:03→17:52)
[2017-11-27 07:10] LABS: Bedside Glucose 116 mg/dL (70-110)
[2017-11-27] MEDS: Aspirin E.C. 81 MG Tablet PO (08:18)
[2017-11-27] MEDS: BRIMONIDINE 0.2% 5ML BOTTLE 2 DRP EACH EYE ×2 (08:19→17:52)
[2017-11-27] MEDS: Famotidine 20 MG Tablet PO ×2 (08:21→21:38)
[2017-11-27] MEDS: Clopidogrel Bisulfate 75 MG Tablet PO (08:21)
[2017-11-27] MEDS: guaiFENesin 600 MG Tablet 1200 MG PO ×2 (08:21→21:44)
--- NOTE | 2017-11-27 08:50 | PCM.PN.CARD ---
Subjectve: The patient denies ongoing chest discomfort. She states she is coughing and beginning to bring up sputum. Objective: Vital Signs Temp Pulse Resp BP Pulse Ox 97.9 F 77 18 151/71 H 96 11/27/17 03:45 11/27/17 07:18 11/27/17 03:45 11/27/17 03:45 11/27/17 03:45 Oxygen Delivery Method Room Air Weight: 183 lb 2.878 oz Body Mass Index (BMI) 30.4 Intake and Output for Last 24 Hours 11/25/17 11/26/17 11/27/17 23:59 23:59 23:59 Intake Total 3339 / 3339 615 / 615 Balance 3339 / 3339 615 / 615 General: Awake, Alert, Oriented x 3, Cooperative Lungs: Rhonchi - Scattered Cardiovascular: Regular Rhythm, Normal S1, Normal S2 Murmur Murmur: Grade 3/6, Harsh, Mid Systolic, LLSB, LVOT, Sternal Notch Abdomen: Bowel Sounds Present, Soft, Non Tender Extremities: No edema 11/27/17 05:15: WBC 6.0, RBC 3.49 L, Hgb 10.8 L, Hct 31.8 L, MCV 91.1, MCH 30.9, MCHC 34.0, RDW 13.8, RDW Differential 44.6 H, Plt Count 134 L, MPV 10.9, Immature Gran % (Auto) 0.200, Neut % (Auto) 58.1, Lymph % (Auto) 25.2, [place] % (Auto) 13.4 H, Eos % (Auto) 2.8, Baso % (Auto) 0.3, Absolute Neuts (auto) 3.5, Total Counted Not Reportable 11/27/17 05:15: Sodium 139, Potassium 3.2 L, Chloride 107, Carbon Dioxide 24.0, Anion Gap 8, BUN 11, Creatinine 0.52 L, Est GFR (MDRD) Af Amer 147, Est GFR (MDRD) Non-Af 121, BUN/Creatinine Ratio 21.2 H, Glucose 110, Calcium 7.9 L Rhythm: Sinus rhythm EKG: Sinus rhythm; no acute ECG changes Assessment/Plan 1. Abnormal troponin I levels The patient does have abnormal troponin I levels. It is unclear at the moment whether this represents a true acute coronary syndrome event (type I) versus a type II event being brought out by her noncardiovascular issues including her pulmonary related issues. At the present time she is being followed. Her cardiac enzymes are decreasing. Her ECG is demonstrated no acute changes. Her transthoracic echocardiogram was demonstrated no obvious left ventricular regional wall motion abnormalities. She will continue medical management for the possibility of underlying CAD. This will include aspirin, antiplatelets, nitrates, beta-blockers, afterload reducing agents as deemed appropriate, lipid-lowering agents, etc. She would also be considered for further evaluation with diagnostic cardiac catheterization to define her coronary anatomy. However it may be reasonable to care for her underlying acute pulmonary process/infectious process in the interim. 2. Near syncope The patient did fall. She states her felt that she was acting dizzy . It is unclear as to whether or not she truly had a near syncopal event. She states she did not lose consciousness. The etiology is uncertain whether it represents relationship to underlying cardiovascular disease or noncardiovascular disease such as her pulmonary disease, etc. At the moment she will continue to be followed. Her cardiac cath tech thus far continues to demonstrate sinus rhythm. 3. Hypertension She does have a history of hypertension. She states that she has been told this in the past but has not wanted to be on medical therapy in the past. Her antihypertensive therapy will be adjusted as needed. 4. Pneumonia She is undergoing evaluation care per internal medicine for a left-sided pneumonia. Comment: The above was discussed and reviewed with the patient and the [facility] staff. This note was generated with [employer] software. Every effort was made to ensure accuracy, however, computerized boatbuilder supervisor mistakes may persist.
--- NOTE | 2017-11-27 08:53 | PN.CARD_ITS ---
Subjectve: The patient denies ongoing chest discomfort. She states she is coughing and beginning to bring up sputum. Objective: Vital Signs Temp Pulse Resp BP Pulse Ox 97.9 F 77 18 151/71 H 96 11/27/17 03:45 11/27/17 07:18 11/27/17 03:45 11/27/17 03:45 11/27/17 03:45 Oxygen Delivery Method Room Air Weight: 183 lb 2.878 oz Body Mass Index (BMI) 30.4 Intake and Output for Last 24 Hours 11/25/17 11/26/17 11/27/17 23:59 23:59 23:59 Intake Total 3339 / 3339 615 / 615 Balance 3339 / 3339 615 / 615 General: Awake, Alert, Oriented x 3, Cooperative Lungs: Rhonchi - Scattered Cardiovascular: Regular Rhythm, Normal S1, Normal S2 Murmur Murmur: Grade 3/6, Harsh, Mid Systolic, LLSB, LVOT, Sternal Notch Abdomen: Bowel Sounds Present, Soft, Non Tender Extremities: No edema 11/27/17 05:15: WBC 6.0, RBC 3.49 L, Hgb 10.8 L, Hct 31.8 L, MCV 91.1, MCH 30.9 , MCHC 34.0, RDW 13.8, RDW Differential 44.6 H, Plt Count 134 L, MPV 10.9, Immature Gran % (Auto) 0.200, Neut % (Auto) 58.1, Lymph % (Auto) 25.2, [place] % ( Auto) 13.4 H, Eos % (Auto) 2.8, Baso % (Auto) 0.3, Absolute Neuts (auto) 3.5, Total Counted Not Reportable 11/27/17 05:15: Sodium 139, Potassium 3.2 L, Chloride 107, Carbon Dioxide 24.0, Anion Gap 8, BUN 11, Creatinine 0.52 L, Est GFR (MDRD) Af Amer 147, Est GFR ( MDRD) Non-Af 121, BUN/Creatinine Ratio 21.2 H, Glucose 110, Calcium 7.9 L Rhythm: Sinus rhythm EKG: Sinus rhythm; no acute ECG changes Assessment/Plan 1. Abnormal troponin I levels The patient does have abnormal troponin I levels. It is unclear at the moment whether this represents a true acute coronary syndrome event (type I) versus a type II event being brought out by her noncardiovascular issues including her pulmonary related issues. At the present time she is being followed. Her cardiac enzymes are decreasing. Her ECG is demonstrated no acute changes. Her transthoracic echocardiogram was demonstrated no obvious left ventricular regional wall motion abnormalities. She will continue medical management for the possibility of underlying CAD. This will include aspirin, antiplatelets, nitrates, beta-blockers, afterload reducing agents as deemed appropriate, lipid-lowering agents, etc. She would also be considered for further evaluation with diagnostic cardiac catheterization to define her coronary anatomy. However it may be reasonable to care for her underlying acute pulmonary process/infectious process in the interim. 2. Near syncope The patient did fall. She states her felt that she was acting dizzy . It is unclear as to whether or not she truly had a near syncopal event. She states she did not lose consciousness. The etiology is uncertain whether it represents relationship to underlying cardiovascular disease or noncardiovascular disease such as her pulmonary disease, etc. At the moment she will continue to be followed. Her diagnostic cardiac sonographer thus far continues to demonstrate sinus rhythm. 3. Hypertension She does have a history of hypertension. She states that she has been told this in the past but has not wanted to be on medical therapy in the past. Her antihypertensive therapy will be adjusted as needed. 4. Pneumonia She is undergoing evaluation care per internal medicine for a left-sided pneumonia. Comment: The above was discussed and reviewed with the patient and the [facility] staff. This note was generated with [employer] Dictation software. Every effort was made to ensure accuracy, however, computerized service technician mistakes may persist.
[2017-11-27] MEDS: Carvedilol 12.5 MG Tablet PO ×2 (10:04→21:44)
[2017-11-27] MEDS: Ceftriaxone 1 GM/50 ML BAG IV (10:08)
[2017-11-27 11:16] LABS: Bedside Glucose 149 mg/dL (70-110)
--- NOTE | 2017-11-27 13:27 | PN_ITS ---
Patient Problems: Active and Suspected Problems Near syncope (Acute) Fall (Acute) Generalized weakness (Acute) Left lingularlobe CAP (Acute) Elevated troponin I level (Acute) Subjective: Pt is resting comfortably in bed, no O2 use, no SOB. Pt has noted since starting flutter valve therapy her cough has become much more productive of mucus and her cough is more frequent. She has no fever or chills. She has no CP , pressure, or tightness in her chest. - Physical Exam General: Alert, Oriented x3, Cooperative HEENT: Atraumatic, PERRLA, EOMI, Normocephalic Neck: Supple, No JVD, Negative Carotid Bruits Lungs: Normal air movement, Rales - there are crackles present when auscultating anteriorly over the lingular area, nothing heard posteriorly today. Cardiovascular: Regular rate, Murmur - 2/6 systolic murmur best heard over the LSB at 2nd intercostal space. Abdomen: Bowel Sounds Present, Soft, Non Tender Extremities: No edema, Capillary Refill Less than 3 Seconds Skin: No rashes, No breakdown Musculoskeletal: No Tenderness to Palpation of Joints or Extremities Neurological: Cranial nerves II-XII grossly intact Psych/Mental Status: Normal Affect, Appropriate Vital Signs Temp Pulse Resp BP Pulse Ox 99.0 F 66 18 114/79 98 11/27/17 09:32 11/27/17 11:00 11/27/17 09:32 11/27/17 09:32 11/27/17 09:32 Oxygen Delivery Method Room Air Weight: 83.089 kg Body Mass Index (BMI) 30.4 Intake and Output for Last 24 Hours 11/25/17 11/26/17 11/27/17 23:59 23:59 23:59 Intake Total 3339 / 3339 1651 / 1651 Balance 3339 / 3339 1651 / 1651 Microbiology Past 72 Hours 11/26/17 06:50 Streptococcus pneumoniae Antigen (M - Final Urine, Clean Catch 11/26/17 06:50 Legionella Antigen - Final Urine, Clean Catch Laboratory Tests Past 24 Hrs 11/27/17 11/27/17 05:15 05:15 WBC 6.0 RBC 3.49 L Hgb 10.8 L Hct 31.8 L MCV 91.1 MCH 30.9 MCHC 34.0 RDW 13.8 RDW Differential 44.6 H Plt Count 134 L MPV 10.9 Immature Gran % (Auto) 0.200 Neut % (Auto) 58.1 Lymph % (Auto) 25.2 [place] % (Auto) 13.4 H Eos % (Auto) 2.8 Baso % (Auto) 0.3 Absolute Neuts (auto) 3.5 Absolute Lymphs (auto) 1.52 Total Counted Not Reportable Sodium 139 Potassium 3.2 L Chloride 107 Carbon Dioxide 24.0 Anion Gap 8 BUN 11 Creatinine 0.52 L Estim Creat Clear Calc 41.72 Est GFR (MDRD) Af Amer 147 Est GFR (MDRD) Non-Af 121 BUN/Creatinine Ratio 21.2 H Glucose 110 Calcium 7.9 L POC Glucose 11/27/17 11/27/17 11/26/17 11:09 06:59 22:33 POC Glucose 149 H 116 H 136 H 11/26/17 16:41 POC Glucose 132 H Assessment/Plan Active and Suspected Problems Near syncope (Acute) Fall (Acute) Generalized weakness (Acute) Left lingularlobe CAP (Acute) Elevated troponin I level (Acute) 1. Elevated troponin concerning for non-ST segment elevation myocardial infarction-troponin has peaked at 1.55 and is trending down. She also has a mildly elevated BNP at 140.1. EKG with no acute change. Patient remains on telemetry and is being followed by cardiology with a tentative plan for heart catheterization when her respiratory status is stable: inpatient vs outpatient still being decided. She is on aspirin and therapeutic Lovenox and Nitro-Bid as needed. Continue Coreg, Diovan, atorvastatin. Currently no chest pain and resting comfortably with no shortness of breath. LDL 118, goal <70 2. Community-acquired pneumonia-left lingular infiltrate noted on CT and chest x-ray-she has no white count, fever, or shortness of breath. She has a productive cough. She has been very weak leading up to this admission likely secondary to the community-acquired pneumonia. Continue azithromycin and Rocephin for today, possibly transition to PO tomorrow. Urine antigens are negative, blood culture pending, influenza screen is negative. mucinex/flutter valve. 3. Debility-secondary to #2. PT OT. 4. Anxiety - Temazepam 5. Hypertension-improved 6. Prediabetes - with acute coronary issues and underlying metabolic syndrome ( HTN, obesity, elevated LDL, decreased HDL, insulin resistance, proteinuria), with a Hgb of 5.7 the patient's prediabetes should be managed more aggressively , so I will add SSI and recommend Metformin to be started at discharge. DVT ppx: Therapeutic Lovenox DC planning: Pending Cath Decision. This patient was seen by Naseem Balderas PA-C under the supervision of Doctor Starks.
[2017-11-27 16:46] LABS: Bedside Glucose 118 mg/dL (70-110)
[2017-11-27] MEDS: Glucerna Shake 120 ML LIQUID PO ×2 (17:55→21:44)
[2017-11-27] MEDS: Latanoprost 0.005% 1 Bottle 1 DRP EACH EYE (21:40)
[2017-11-27] MEDS: Temazepam 15 MG Capsule 30 MG PO (21:43)
[2017-11-27] MEDS: Atorvastatin Calcium 40 MG Tablet PO (21:44)
[2017-11-27 22:01] LABS: Bedside Glucose 125 mg/dL (70-110)
[2017-11-28 03:01] VITALS: PULSE 66
[2017-11-28 03:27] VITALS: BP 169/77; PULSE 72; RESP 16; TEMP 36.9; O2SAT 97
--- NOTE | 2017-11-28 03:31 | NURSING ---
Pt refusing PRN hydralazine for SBP >160 at this time.
[2017-11-28] MEDS: 0.9% Normal Saline 1,000 ML 100 ML IV (05:08)
[2017-11-28 05:30] LABS: Absolute Lymphocyte Count 1.59 X10^3/ul (0.83-4.51); Absolute Neutrophil Count 2.1 X10^3/uL (2.0-7.7); Basophil# 0.01 X10^3/uL; Basophil% 0.2 % (0-1); Eosinophil# 0.14 X10^3/uL; Eosinophils% 3.1 % (0-5); Hematocrit 29.9 % (37-47); Hemoglobin 9.9 g/dl (12.0-15.0); Lymphocyte # 1.59 X10^3/ul (4.0); Lymphocyte % 35.3 % (19-41); Mean Corp Hgb Conc 33.1 g/gl (32-36); Mean Corpuscular Hgb 30.7 pg (27.0-32.0); Mean Corpuscular Volume 92.6 fL (81-99); Mean Platelet Vol. 10.6 fl (6.2-12.0); Monocyte% 15.5 % (0-10); Neutrophil # 2.06 X10^3/uL (2.7-7.7); Neutrophil % 45.7 % (47-70); Platelet Count 131 K/mm3 (150-450); RBC Distribution Width CV 14.2 % (11.6-14.6); RBC Distribution Width SD 46.1 fl (35.1-43.9); Red Blood Count 3.23 M/mm3 (4.2-5.4); White Blood Count 4.5 K/mm3 (4.4-11.0)
[2017-11-28 05:32] LABS: POSITIVE COUNT NO; POSITIVE DIFFERENTIAL NO; POSITIVE MORPHOLOGY NO
[2017-11-28 05:42] LABS: Anion Gap 7 (5-15); BUN 9 mg/dL (7-18); BUN/Creat Ratio 17.3 RATIO (10-20); Chloride 109 mmol/L (98-107); Creatinine, Serum 0.52 mg/dL (0.55-1.02); EST Glomerular Filtration Rate 121 mL/min (>60); Est Glom Filt Rate - Afr Amer 147 mL/min (>60); Estimated Creatinine Clearance 41.72 ml/min; Glucose 102 mg/dL (70-110); Potassium 3.8 mmol/L (3.5-5.1); Sodium Level 142 mmol/L (136-145)
[2017-11-28] MEDS: Enoxaparin 80 MG/0.8 ML Syringe SC (06:01)
[2017-11-28 06:55] LABS: Bedside Glucose 110 mg/dL (70-110)
[2017-11-28 07:26] VITALS: PULSE 69
[2017-11-28] MEDS: BRIMONIDINE 0.2% 5ML BOTTLE 2 DRP EACH EYE (08:13)
[2017-11-28] MEDS: guaiFENesin 600 MG Tablet 1200 MG PO (08:13)
[2017-11-28] MEDS: Aspirin E.C. 81 MG Tablet PO (08:13)
[2017-11-28] MEDS: Clopidogrel Bisulfate 75 MG Tablet PO (08:14)
[2017-11-28] MEDS: Famotidine 20 MG Tablet PO (08:14)
[2017-11-28 09:27] VITALS: BP 157/60; PULSE 65; RESP 18; TEMP 36.8; O2SAT 97
[2017-11-28] MEDS: Carvedilol 12.5 MG Tablet PO (09:53)
[2017-11-28] MEDS: Ceftriaxone 1 GM/50 ML BAG IV (09:56)
[2017-11-28 11:19] VITALS: PULSE 69
[2017-11-28 11:41] LABS: Bedside Glucose 106 mg/dL (70-110)
--- NOTE | 2017-11-28 11:49 | PCM.DC ---
- Discharge Diagnoses Current Active Problems: Current Active and Chronic Problems Near syncope (Acute) Fall (Acute) Generalized weakness (Acute) Left lingularlobe CAP (Acute) Elevated troponin I level (Acute) Hypertension (Chronic) Prediabetes (Chronic) You will use the following diet at home:: Calorie/Carbohydrate Controlled (specify 1200, 1400, etc) Discharge Activity: Return to Normal Activity Call your doctor if you observe: Shortness of breath, Dizziness, Fainting spells, Chest pain Allergies/Adverse Reactions: Allergies No Known Allergies Allergy (Verified 11/25/17 15:52) Medications to take at Discharge Brimonidine Tartrate 0.2% [Brimonidine 0.2% 5Ml Bottle] 2 drop EACH EYE BID 11/25/17 Dorzolamide HCl/Timolol Maleat [Dorzolamide-Timolol Eye Drops] 1 drop EACH EYE BID 11/25/17 Latanoprost 0.005% [Xalatan Opthalmic] 1 drop EACH EYE QHS 11/25/17 Temazepam 30 mg PO QHS 11/25/17 Aspirin E.C. [Ecotrin] 81 mg PO DAILY@0800 #30 tab 11/28/17 Atorvastatin Calcium [Lipitor] 40 mg PO QHS #30 tab 11/28/17 Carvedilol [Coreg (Beta Kristel)] 12.5 mg PO BID #60 tab 11/28/17 Cefdinir [Omnicef [equiv]] 300 mg PO Q12H #10 cap 11/28/17 Clopidogrel Bisulfate [Plavix] 75 mg PO DAILY #30 tab 11/28/17 Metformin HCl 500 mg PO DAILY #30 tab 11/28/17 Valsartan [Diovan] 160 mg PO DAILY #60 tab 11/28/17 The following prescriptions were given: Aspirin E.C. [Ecotrin] 81 mg PO DAILY@0800 #30 tab Atorvastatin Calcium [Lipitor] 40 mg PO QHS #30 tab Cefdinir [Omnicef [equiv]] 300 mg PO Q12H #10 cap Clopidogrel Bisulfate [Plavix] 75 mg PO DAILY #30 tab Metformin HCl 500 mg PO DAILY #30 tab Valsartan [Diovan] 160 mg PO DAILY #60 tab Carvedilol [Coreg (Beta Kristel)] 12.5 mg PO BID #60 tab Primary Care Physician: Eh Huddleston Chi, MD [Primary Care Provider] - Please follow up with your Primary Care Physician in: 1-2 Weeks Please Follow Up With: Abraham Sheppard MD When: As scheduled. Proposed Discharge Date: 11/28/17
--- NOTE | 2017-11-28 11:52 | DCINST_ITS ---
- Discharge Diagnoses Current Active Problems: Current Active and Chronic Problems Near syncope (Acute) Fall (Acute) Generalized weakness (Acute) Left lingularlobe CAP (Acute) Elevated troponin I level (Acute) Hypertension (Chronic) Prediabetes (Chronic) You will use the following diet at home:: Calorie/Carbohydrate Controlled ( specify 1200, 1400, etc) Discharge Activity: Return to Normal Activity Call your doctor if you observe: Shortness of breath, Dizziness, Fainting spells , Chest pain Allergies/Adverse Reactions: Allergies No Known Allergies Allergy (Verified 11/25/17 15:52) Medications to take at Discharge Brimonidine Tartrate 0.2% [Brimonidine 0.2% 5Ml Bottle] 2 drop EACH EYE BID Dorzolamide HCl/Timolol Maleat [Dorzolamide-Timolol Eye Drops] 1 drop EACH EYE BID 11/25/17 Latanoprost 0.005% [Xalatan Opthalmic] 1 drop EACH EYE QHS 11/25/17 Temazepam 30 mg PO QHS 11/25/17 Aspirin E.C. [Ecotrin] 81 mg PO DAILY@0800 #30 tab 11/28/17 Atorvastatin Calcium [Lipitor] 40 mg PO QHS #30 tab 11/28/17 Carvedilol [Coreg (Beta Kristel)] 12.5 mg PO BID #60 tab 11/28/17 Cefdinir [Omnicef [equiv]] 300 mg PO Q12H #10 cap 11/28/17 Clopidogrel Bisulfate [Plavix] 75 mg PO DAILY #30 tab 11/28/17 Metformin HCl 500 mg PO DAILY #30 tab 11/28/17 Valsartan [Diovan] 160 mg PO DAILY #60 tab 11/28/17 The following prescriptions were given: Aspirin E.C. [Ecotrin] 81 mg PO DAILY@0800 #30 tab Atorvastatin Calcium [Lipitor] 40 mg PO QHS #30 tab Cefdinir [Omnicef [equiv]] 300 mg PO Q12H #10 cap Clopidogrel Bisulfate [Plavix] 75 mg PO DAILY #30 tab Metformin HCl 500 mg PO DAILY #30 tab Valsartan [Diovan] 160 mg PO DAILY #60 tab Carvedilol [Coreg (Beta Kristel)] 12.5 mg PO BID #60 tab Primary Care Physician: Eh Huddleston Chi, MD [Primary Care Provider] - Please follow up with your Primary Care Physician in: 1-2 Weeks Please Follow Up With: Abraham Sheppard MD When: As scheduled. Proposed Discharge Date: 11/28/17
--- NOTE | 2017-11-28 12:59 | PCM.PN.CARD ---
Subjectve: The patient appears to be resting comfortably. She has no complaints of chest discomfort. She continues with a cough but without sputum production. She states yesterday evening she had loose bowel movements. Objective: Vital Signs Temp Pulse Resp BP Pulse Ox 98.2 F 69 18 157/60 H 97 11/28/17 09:27 11/28/17 11:19 11/28/17 09:27 11/28/17 09:27 11/28/17 09:27 Oxygen Delivery Method Room Air Weight: 183 lb 2.878 oz Body Mass Index (BMI) 30.4 Intake and Output for Last 24 Hours 11/26/17 11/27/17 11/28/17 23:59 23:59 23:59 Intake Total 3339 / 3339 3487 / 3487 1451 / 1451 Output Total 0 / 0 Balance 3339 / 3339 3487 / 3487 1451 / 1451 General: Awake, Alert, Oriented x 3, Cooperative, No Acute Distress Neck: No JVD Lungs: - - No obvious rales or rhonchi Cardiovascular: Regular Rhythm, Normal S1, Normal S2 Abdomen: Bowel Sounds Present, Soft, Non Tender Extremities: No edema 11/28/17 05:15: WBC 4.5, RBC 3.23 L, Hgb 9.9 L, Hct 29.9 L, MCV 92.6, MCH 30.7, MCHC 33.1, RDW 14.2, RDW Differential 46.1 H, Plt Count 131 L, MPV 10.6, Immature Gran % (Auto) 0.200, Neut % (Auto) 45.7 L, Lymph % (Auto) 35.3, Dickson % (Auto) 15.5 H, Eos % (Auto) 3.1, Baso % (Auto) 0.2, Absolute Neuts (auto) 2.1, Total Counted Not Reportable 11/28/17 05:15: Sodium 142, Potassium 3.8, Chloride 109 H, Carbon Dioxide 26.0, Anion Gap 7, BUN 9, Creatinine 0.52 L, Est GFR (MDRD) Af Amer 147, Est GFR (MDRD) Non-Af 121, BUN/Creatinine Ratio 17.3, Glucose 102, Calcium 8.0 L Rhythm: Sinus rhythm Assessment/Plan 1. Abnormal troponin I levels The patient does have abnormal troponin I levels. It is unclear at the moment whether this represents a true acute coronary syndrome event (type I) versus a type II event being brought out by her noncardiovascular issues including her pulmonary related issues. She will continue medical management for the possibility of underlying CAD. This will include aspirin, antiplatelets, nitrates, beta-blockers, afterload reducing agents as deemed appropriate, lipid-lowering agents, etc. She would also be considered for further evaluation with diagnostic cardiac catheterization to define her coronary anatomy. Liver, this is on temporary hold pending resolution of her underlying infectious disease process. 2. Near syncope The patient did fall. She states her felt that she was acting dizzy . It is unclear as to whether or not she truly had a near syncopal event. She states she did not lose consciousness. The etiology is uncertain whether it represents relationship to underlying cardiovascular disease or noncardiovascular disease such as her pulmonary disease, etc. At the moment she will continue to be followed. 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 3. Hypertension She does have a history of hypertension. She states that she has been told this in the past but has not wanted to be on medical therapy in the past. Her antihypertensive therapy will be adjusted as needed. 4. Pneumonia She is undergoing evaluation care per internal medicine for a left-sided pneumonia. Overall, the tentative plan is for the patient to be released home for continued outpatient follow-up with her primary care physician with regard to her underlying infectious disease process. When she is clinically improved and she will be considered for further cardiovascular evaluation including diagnostic cardiac catheterization. Comment: The above was discussed and reviewed with the patient and Dr. akers of the [facility] staff. This note was generated with [employer] Dictation software. Every effort was made to ensure accuracy, however, computerized classified ad clerk mistakes may persist.
--- NOTE | 2017-11-28 13:18 | PCM.DC.SUM ---
Discharge Date and Diagnosis Date of Admission: 11/25/17 Date of Discharge: 11/28/17 - Primary Discharge Diagnosis Active and Suspected Problems 1. Acute community-acquired pneumonia 2. Acute NSTEMI type II 3. Near syncope with mechanical fall 4. Hyperglycemia - Secondary Discharge Diagnosis Chronic Problems Hypertension (Chronic) Prediabetes (Chronic) Glaucoma Hospital Course and Treatment Imaging Results: Diagnostic Data Brain CT 11/25/17 16:21 IMPRESSION: Atrophy. 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 No evidence of acute hemorrhage infarct or edema. Electronically Signed: Gisela Ly MD at 17:21 EST Tel , Service support , Chest X-Ray 11/25/17 16:55 IMPRESSION: Findings are most consistent with lingular pneumonia. N.B. : The above information has been verbally conveyed by Gisela Ly MD to Dr. Troy Stern, Referring Physician, on 11/25/2017 17:58:07 (ET). Electronically Signed: Gisela Ly MD at 17:43 EST Tel , Service support , N.B. : The above information has been verbally conveyed by Gisela Ly MD to Dr. Troy Stern, Referring Physician, on 11/25/2017 17:58:07 (ET). Chest CTA 11/25/17 17:24 IMPRESSION: 1. No demonstrated pulmonary embolism or arterial dissection. 2. Lingular pneumonic infiltrate, correlating to the density seen on chest x-ray. 3. Additional scarring in the lung bases, as noted. 4. Atherosclerotic calcifications of the coronary arteries, thoracic aorta, and proximal brachiocephalic arteries. 5. Subcentimeter low densities in the liver may be cysts or hemangiomata. 6. Small hiatal hernia. Electronically Signed: Mo Mccray MD at 19:02 EST , Service support , Dr. Sheppard- Cardiology Operations: None Procedures: 2-D Echocardiogram Summary of Care Provided: The patient is a 77 year old F admitted 11/25/17 due to dizziness and fall. She has a past medical history of glaucoma, hypertension, obesity and prediabetes. Patient was found to have acute community-acquired pneumonia. Chest x-ray consistent with lingular pneumonia. CT of chest demonstrated no PE, lingular pneumonic infiltrate, scarring bilateral bases, subcentimeter low densities in the liver consistent with cyst or hemangiomata, small hiatal hernia. Patient with low-grade fever on admission. Oxygen stable on room air. She was treated with IV azithromycin and Rocephin. She will be discharged on Omnicef for 5 more days of oral antibiotic therapy. No leukocytosis. Patient continues to have nonproductive cough. Denies shortness of breath. Urine for strep and Legionella negative. Sputum and blood culture pending at discharge. Patient was also noted to have acute NSTEMI type II. EKG without evidence of acute ischemia. Troponin 0.65, 1.55, 1.43, 1.05. Cardiology consulted. Echocardiogram completed which showed estimated ejection fraction 65%, trivial mitral valve insufficiency, trivial tricuspid insufficiency, mild aortic stenosis, trivial aortic valve insufficiency, RVSP 30. Patient will follow up with Dr. Sheppard, cardiology as outpatient with plans for outpatient cardiac catheterization when pneumonia resolves. She will continue medical management with aspirin, statin, Plavix, beta-kristel, ARB. Patient noted to have elevated glucose, hemoglobin A1c 5.7%. Patient has underlying metabolic syndrome and will be discharged on metformin 500 mg daily which can be titrated as found necessary by primary care physician. Other chronic medical conditions as noted above are stable at this time. General: Alert, Oriented x3, Cooperative HEENT: Atraumatic, PERRLA, EOMI, Normocephalic Neck: Supple, No JVD, Negative Carotid Bruits Lungs: Normal air movement, diminished Cardiovascular: Regular rate, Murmur Abdomen: Bowel Sounds Present, Soft, Non Tender Extremities: No edema, Capillary Refill Less than 3 Seconds Skin: No rashes, No breakdown Musculoskeletal: No Tenderness to Palpation of Joints or Extremities Neurological: Cranial nerves II-XII grossly intact Psych/Mental Status: Normal Affect, Appropriate Patient seen and examined prior to discharge. Physical assessment as noted above. Patient denies chest pain, shortness of breath, dizziness. Patient is stable for discharge home with follow-up recommendations as noted above. She will follow-up in the near future with cardiology with plans of outpatient cardiac catheterization. Discharge Diet: Low fat/ Low Cholesterol, Carb Control Diet Discharge Activity: Return to Normal Activity Call your doctor if you observe: Shortness of breath, Dizziness, Fainting spells, Chest pain Home Medications: Medications to take at Discharge Brimonidine Tartrate 0.2% [Brimonidine 0.2% 5Ml Bottle] 2 drop EACH EYE BID 11/25/17 Dorzolamide HCl/Timolol Maleat [Dorzolamide-Timolol Eye Drops] 1 drop EACH EYE BID 11/25/17 Latanoprost 0.005% [Xalatan Opthalmic] 1 drop EACH EYE QHS 11/25/17 Temazepam 30 mg PO QHS 11/25/17 Aspirin E.C. [Ecotrin] 81 mg PO DAILY@0800 #30 tab 11/28/17 Atorvastatin Calcium [Lipitor] 40 mg PO QHS #30 tab 11/28/17 Carvedilol [Coreg (Beta Kristel)] 12.5 mg PO BID #60 tab 11/28/17 Cefdinir [Omnicef [equiv]] 300 mg PO Q12H #10 cap 11/28/17 Clopidogrel Bisulfate [Plavix] 75 mg PO DAILY #30 tab 11/28/17 Guaifenesin [Mucinex] 1,200 mg PO BID #60 tbmp.12hr 11/28/17 Metformin HCl 500 mg PO DAILY #30 tab 11/28/17 Valsartan [Diovan] 160 mg PO DAILY #60 tab 11/28/17 Following Prescrptions Were Given to Patient: Aspirin E.C. [Ecotrin] 81 mg PO DAILY@0800 #30 tab Atorvastatin Calcium [Lipitor] 40 mg PO QHS #30 tab Cefdinir [Omnicef [equiv]] 300 mg PO Q12H #10 cap Clopidogrel Bisulfate [Plavix] 75 mg PO DAILY #30 tab Metformin HCl 500 mg PO DAILY #30 tab Valsartan [Diovan] 160 mg PO DAILY #60 tab Carvedilol [Coreg (Beta Kristel)] 12.5 mg PO BID #60 tab Guaifenesin [Mucinex] 1,200 mg PO BID #60 tbmp.12hr Primary Care Physician: Eh Huddleston Chi, MD [Primary Care Provider] - Please follow up with your Primary Care Physician in: 1-2 Weeks Please Follow Up With: Abraham Sheppard MD When: Call office for appointment. Disposition: Home Minutes spent on discharge:: 35 Patient Condition:: Stable Meaningful Use Info Meaningful Use Diagnoses (Choose all that apply): None applicable
--- NOTE | 2017-11-28 13:35 | DS.PCM_ITS ---
Discharge Date and Diagnosis Date of Admission: 11/25/17 Date of Discharge: 11/28/17 - Primary Discharge Diagnosis Active and Suspected Problems 1. Acute community-acquired pneumonia 2. Acute NSTEMI type II 3. Near syncope with mechanical fall 4. Hyperglycemia - Secondary Discharge Diagnosis Chronic Problems Hypertension (Chronic) Prediabetes (Chronic) Glaucoma Hospital Course and Treatment Imaging Results: Diagnostic Data Brain CT 11/25/17 16:21 IMPRESSION: Atrophy. 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 No evidence of acute hemorrhage infarct or edema. Electronically Signed: Gisela Ly MD at 17:21 EST Tel , Service support , Chest X-Ray 11/25/17 16:55 IMPRESSION: Findings are most consistent with lingular pneumonia. N.B. : The above information has been verbally conveyed by Gisela Ly MD to Dr. Troy Stern, Referring Physician, on 11/25/2017 17:58:07 (ET). Electronically Signed: Gisela Ly MD at 17:43 EST Tel , Service support , N.B. : The above information has been verbally conveyed by Gisela Ly MD to Dr. Troy Stern, Referring Physician, on 11/25/2017 17:58:07 (ET). Chest CTA 11/25/17 17:24 IMPRESSION: 1. No demonstrated pulmonary embolism or arterial dissection. 2. Lingular pneumonic infiltrate, correlating to the density seen on chest x-ray. 3. Additional scarring in the lung bases, as noted. 4. Atherosclerotic calcifications of the coronary arteries, thoracic aorta, and proximal brachiocephalic arteries. 5. Subcentimeter low densities in the liver may be cysts or hemangiomata. 6. Small hiatal hernia. Electronically Signed: Mo Mccray MD at 19:02 EST , Service support , Dr. Sheppard- Cardiology Operations: None Procedures: 2-D Echocardiogram Summary of Care Provided: The patient is a 77 year old F admitted 11/25/17 due to dizziness and fall. She has a past medical history of glaucoma, hypertension, obesity and prediabetes. Patient was found to have acute community-acquired pneumonia. Chest x-ray consistent with lingular pneumonia. CT of chest demonstrated no PE, lingular pneumonic infiltrate, scarring bilateral bases, subcentimeter low densities in the liver consistent with cyst or hemangiomata, small hiatal hernia. Patient with low-grade fever on admission. Oxygen stable on room air. She was treated with IV azithromycin and Rocephin. She will be discharged on Omnicef for 5 more days of oral antibiotic therapy. No leukocytosis. Patient continues to have nonproductive cough. Denies shortness of breath. Urine for strep and Legionella negative. Sputum and blood culture pending at discharge. Patient was also noted to have acute NSTEMI type II. EKG without evidence of acute ischemia. Troponin 0.65, 1.55, 1.43, 1.05. Cardiology consulted. Echocardiogram completed which showed estimated ejection fraction 65%, trivial mitral valve insufficiency, trivial tricuspid insufficiency, mild aortic stenosis, trivial aortic valve insufficiency, RVSP 30. Patient will follow up with Dr. Sheppard, cardiology as outpatient with plans for outpatient cardiac catheterization when pneumonia resolves. She will continue medical management with aspirin, statin, Plavix, beta-kristel, ARB. Patient noted to have elevated glucose, hemoglobin A1c 5.7%. Patient has underlying metabolic syndrome and will be discharged on metformin 500 mg daily which can be titrated as found necessary by primary care physician. Other chronic medical conditions as noted above are stable at this time. General: Alert, Oriented x3, Cooperative HEENT: Atraumatic, PERRLA, EOMI, Normocephalic Neck: Supple, No JVD, Negative Carotid Bruits Lungs: Normal air movement, diminished Cardiovascular: Regular rate, Murmur Abdomen: Bowel Sounds Present, Soft, Non Tender Extremities: No edema, Capillary Refill Less than 3 Seconds Skin: No rashes, No breakdown Musculoskeletal: No Tenderness to Palpation of Joints or Extremities Neurological: Cranial nerves II-XII grossly intact Psych/Mental Status: Normal Affect, Appropriate Patient seen and examined prior to discharge. Physical assessment as noted above. Patient denies chest pain, shortness of breath, dizziness. Patient is stable for discharge home with follow-up recommendations as noted above. She will follow-up in the near future with cardiology with plans of outpatient cardiac catheterization. Discharge Diet: Low fat/ Low Cholesterol, Carb Control Diet Discharge Activity: Return to Normal Activity Call your doctor if you observe: Shortness of breath, Dizziness, Fainting spells , Chest pain Home Medications: Medications to take at Discharge Brimonidine Tartrate 0.2% [Brimonidine 0.2% 5Ml Bottle] 2 drop EACH EYE BID Dorzolamide HCl/Timolol Maleat [Dorzolamide-Timolol Eye Drops] 1 drop EACH EYE BID 11/25/17 Latanoprost 0.005% [Xalatan Opthalmic] 1 drop EACH EYE QHS 11/25/17 Temazepam 30 mg PO QHS 11/25/17 Aspirin E.C. [Ecotrin] 81 mg PO DAILY@0800 #30 tab 11/28/17 Atorvastatin Calcium [Lipitor] 40 mg PO QHS #30 tab 11/28/17 Carvedilol [Coreg (Beta Kristel)] 12.5 mg PO BID #60 tab 11/28/17 Cefdinir [Omnicef [equiv]] 300 mg PO Q12H #10 cap 11/28/17 Clopidogrel Bisulfate [Plavix] 75 mg PO DAILY #30 tab 11/28/17 Guaifenesin [Mucinex] 1,200 mg PO BID #60 tbmp.12hr 11/28/17 Metformin HCl 500 mg PO DAILY #30 tab 11/28/17 Valsartan [Diovan] 160 mg PO DAILY #60 tab 11/28/17 Following Prescrptions Were Given to Patient: Aspirin E.C. [Ecotrin] 81 mg PO DAILY@0800 #30 tab Atorvastatin Calcium [Lipitor] 40 mg PO QHS #30 tab Cefdinir [Omnicef [equiv]] 300 mg PO Q12H #10 cap Clopidogrel Bisulfate [Plavix] 75 mg PO DAILY #30 tab Metformin HCl 500 mg PO DAILY #30 tab Valsartan [Diovan] 160 mg PO DAILY #60 tab Carvedilol [Coreg (Beta Kristel)] 12.5 mg PO BID #60 tab Guaifenesin [Mucinex] 1,200 mg PO BID #60 tbmp.12hr Primary Care Physician: Eh Huddleston Chi, MD [Primary Care Provider] - Please follow up with your Primary Care Physician in: 1-2 Weeks Please Follow Up With: Abraham Sheppard MD When: Call office for appointment. Disposition: Home Minutes spent on discharge:: 35 Patient Condition:: Stable Meaningful Use Info Meaningful Use Diagnoses (Choose all that apply): None applicable
--- NOTE | 2017-11-28 14:44 | NURSING ---
Went over discharge instructions and new medication list with patient. Patient upset about new RX for diabetes. Pt states she is not diabetic, watches what she eats and has never been told she is diabetic before. Pt stated she will not take any medications for cholesterol, blood pressure or diabetes. States she is in good health and nothing is wrong with her. Education provided to patient and stressed the importance of each new medication.
[2017-11-28 15:28] VITALS: BP 152/65; PULSE 73; RESP 18; TEMP 36.9; O2SAT 98
== END 2017-11-28 15:19 | disposition home or self-care (01) | DRG 193 ==
LOC: ED 18:00 → PCU 19:38
PROVIDERS: Physician Assistant; Admitting Provider Internal Medicine; Emergency Provider Emergency Medicine; Family Provider Family Medicine Geriatric Medicine; PCP Family Medicine Geriatric Medicine; Visit Provider Family Medicine
DX: J18.9 Pneumonia, unspecified organism (principal); I21.A1 Myocardial infarction type 2; E88.81 Metabolic syndrome and other insulin resistance; W19.XXXA Unspecified fall, initial encounter; I10 Essential (primary) hypertension; Z96.643 Presence of artificial hip joint, bilateral; H40.9 Unspecified glaucoma; E78.5 Hyperlipidemia, unspecified; E66.9 Obesity, unspecified; Z68.30 Body mass index [BMI] 30.0-30.9, adult; R73.03 Prediabetes; F41.9 Anxiety disorder, unspecified; S00.81XA Abrasion of other part of head, initial encounter; Y93.01 Activity, walking, marching and hiking; Y92.830 Public park as the place of occurrence of the external cause
CPT/HCPCS: 36415; 70450; 71046; 71275; 80048; 80053; 80061; 81001; 82962; 83036; 83605; 83735; 83880; 84443; 84484; 85025; 85610; 85730; 87040; 87070; 87077; 87205; 87449; 87804; 93005; 93306; 94667; 94668; 97110; 97116; 97162; 97165; 97530; 97535; 97802; 99284; J7030; A4216; J0696

== ENCOUNTER → 2018-08-27 15:09 | Outpatient (CLI) | payer MEDICARE, SELFPAY ==
[2018-08-27 17:28] LABS: Absolute Lymphocyte Count 1.56 X10^3/ul (0.83-4.51); Absolute Neutrophil Count 2.8 X10^3/uL (2.0-7.7); Basophil# 0.02 X10^3/uL; Basophil% 0.4 % (0-1); Eosinophil# 0.06 X10^3/uL; Eosinophils% 1.2 % (0-5); Hematocrit 40.1 % (37-47); Hemoglobin 13.1 g/dl (12.0-15.0); Lymphocyte # 1.56 X10^3/ul (4.0); Lymphocyte % 31.8 % (19-41); Mean Corp Hgb Conc 32.7 g/gl (32-36); Mean Corpuscular Hgb 30.5 pg (27.0-32.0); Mean Corpuscular Volume 93.5 fL (81-99); Mean Platelet Vol. 10.7 fl (6.2-12.0); Monocyte# 0.45 X10^3/uL; Monocyte% 9.2 % (0-10); Neutrophil % 57.2 % (47-70); Platelet Count 194 K/mm3 (150-450); RBC Distribution Width CV 13.1 % (11.6-14.6); RBC Distribution Width SD 43.4 fl (35.1-43.9); Red Blood Count 4.29 M/mm3 (4.2-5.4); White Blood Count 4.9 K/mm3 (4.4-11.0)
[2018-08-27 17:31] LABS: POSITIVE COUNT NO; POSITIVE DIFFERENTIAL NO; POSITIVE MORPHOLOGY NO
[2018-08-27 17:45] LABS: Vitamin D,25 Hydroxy 19.8 ng/mL (29.95-100.01)
[2018-08-27 17:50] LABS: ALB/GLOB Ratio 0.9 RATIO (0.9-2.4); AST(SGOT) 54 U/L (15-37); Alanine Aminotransfer ALT/SGPT 25 U/L (13-56); Albumin, Serum 3.8 g/dL (3.2-5.0); Alkaline Phosphatase 74 U/L (45-117); Anion Gap 8 (5-15); BUN 20 mg/dL (7-18); BUN/Creat Ratio 28.9 RATIO (10-20); Calcium,Total 8.8 mg/dL (8.5-10.1); Chloride 106 mmol/L (98-107); Cholesterol 169 mg/dL (200); Creatinine, Serum 0.69 mg/dL (0.55-1.02); EST Glomerular Filtration Rate 87 mL/min (>60); Est Glom Filt Rate - Afr Amer 105 mL/min (>60); Globulin 4.1 g/dL (2.2-4.2); Glucose 104 mg/dL (74-106); High Density Lipoprotein 74 mg/dL; Potassium 3.9 mmol/L (3.5-5.1); Protein, Total 7.9 g/dL (6.4-8.2); Sodium Level 138 mmol/L (136-145); Thyroid Stim Hormone (TSH) 1.37 uIU/mL (0.358-3.74); Triglycerides 87 mg/dL; Very Low Density Lipoprotein 17 mg/dL (5-40)
== END ==
PROVIDERS: Family Provider Family Medicine Geriatric Medicine; PCP Family Medicine Geriatric Medicine; Visit Provider Family Medicine Geriatric Medicine
DX: E55.9 Vitamin D deficiency, unspecified (principal); E78.49 Other hyperlipidemia; I10 Essential (primary) hypertension
CPT/HCPCS: 36415; 80053; 80061; 82306; 84443; 85025

== ENCOUNTER → 2019-02-26 14:49 | Outpatient (CLI) | payer MEDICARE, SELFPAY ==
[2017-12-04 13:43] VITALS: BMI 30.1
[2019-02-26 17:44] LABS: Absolute Lymphocyte Count 1.77 X10^3/ul (0.83-4.51); Absolute Neutrophil Count 3.1 X10^3/uL (2.0-7.7); Basophil# 0.01 X10^3/uL; Basophil% 0.2 % (0-1); Eosinophil# 0.08 X10^3/uL; Eosinophils% 1.5 % (0-5); Hematocrit 39.2 % (37-47); Hemoglobin 12.8 g/dl (12.0-15.0); Lymphocyte # 1.77 X10^3/ul (4.0); Lymphocyte % 32.2 % (19-41); Mean Corp Hgb Conc 32.7 g/gl (32-36); Mean Corpuscular Hgb 30.4 pg (27.0-32.0); Mean Corpuscular Volume 93.1 fL (81-99); Monocyte# 0.52 X10^3/uL; Monocyte% 9.5 % (0-10); Neutrophil # 3.11 X10^3/uL (2.7-7.7); Neutrophil % 56.6 % (47-70); Platelet Count 190 K/mm3 (150-450); RBC Distribution Width CV 13.7 % (11.6-14.6); RBC Distribution Width SD 45.9 fl (35.1-43.9); Red Blood Count 4.21 M/mm3 (4.2-5.4); White Blood Count 5.5 K/mm3 (4.4-11.0)
[2019-02-26 18:02] LABS: POSITIVE COUNT NO; POSITIVE DIFFERENTIAL NO; POSITIVE MORPHOLOGY NO
[2019-02-26 18:13] LABS: Vitamin D,25 Hydroxy 13.2 ng/mL (29.95-100.01)
[2019-02-26 18:22] LABS: AST(SGOT) 52 U/L (15-37); Alanine Aminotransfer ALT/SGPT 23 U/L (13-56); Albumin, Serum 3.7 g/dL (3.2-5.0); Alkaline Phosphatase 77 U/L (45-117); Anion Gap 7 (5-15); BUN 19 mg/dL (7-18); BUN/Creat Ratio 24.1 RATIO (10-20); Chloride 106 mmol/L (98-107); Cholesterol 156 mg/dL (200); Creatinine, Serum 0.79 mg/dL (0.55-1.02); EST Glomerular Filtration Rate 75 mL/min (>60); Est Glom Filt Rate - Afr Amer 90 mL/min (>60); Globulin 3.8 g/dL (2.2-4.2); Glucose 110 mg/dL (74-106); High Density Lipoprotein 71 mg/dL; Potassium 4.4 mmol/L (3.5-5.1); Protein, Total 7.5 g/dL (6.4-8.2); Sodium Level 140 mmol/L (136-145); Thyroid Stim Hormone (TSH) 1.66 uIU/mL (0.358-3.74); Triglycerides 119 mg/dL; Very Low Density Lipoprotein 24 mg/dL (5-40)
== END ==
PROVIDERS: Family Provider Family Medicine Geriatric Medicine; PCP Family Medicine Geriatric Medicine; Visit Provider Family Medicine Geriatric Medicine
DX: E55.9 Vitamin D deficiency, unspecified (principal); E78.5 Hyperlipidemia, unspecified; I10 Essential (primary) hypertension
CPT/HCPCS: 36415; 80053; 80061; 82306; 84443; 85025

== ENCOUNTER → 2019-09-01 16:49 | Outpatient (CLI) | payer MEDICARE, SELFPAY ==
[2017-12-04 13:43] VITALS: BMI 30.1
[2019-09-01 17:55] LABS: Absolute Lymphocyte Count 1.86 X10^3/uL (0.83-4.51); Absolute Neutrophil Count 2.9 X10^3/uL (2.0-7.7); Basophil# 0.03 X10^3/uL; Basophil% 0.6 % (0-1); Eosinophil# 0.08 X10^3/uL; Eosinophils% 1.5 % (0-5); Hematocrit 41.6 % (37-47); Hemoglobin 13.5 g/dL (12.0-15.0); Lymphocyte # 1.86 X10^3/ul (4.0); Lymphocyte % 34.5 % (19-41); Mean Corp Hgb Conc 32.5 g/dL (32-36); Mean Corpuscular Hgb 30.7 pg (27.0-32.0); Mean Corpuscular Volume 94.5 fL (81-99); Monocyte# 0.54 X10^3/uL; NRBC Flagged by Analyzer 0 % (0-5); Neutrophil # 2.87 X10^3/uL (2.7-7.7); Neutrophil % 53.2 % (47-70); Platelet Count 191 K/mm3 (150-450); RBC Distribution Width CV 12.7 % (11.6-14.6); RBC Distribution Width SD 44.4 fl (35.1-43.9); White Blood Count 5.4 K/mm3 (4.4-11.0)
[2019-09-01 18:10] LABS: Vitamin D,25 Hydroxy 26.9 ng/mL (29.95-100.01)
[2019-09-01 18:19] LABS: ALB/GLOB Ratio 0.9 RATIO (0.9-2.4); AST(SGOT) 48 U/L (15-37); Alanine Aminotransfer ALT/SGPT 24 U/L (13-56); Albumin, Serum 3.7 g/dL (3.2-5.0); Alkaline Phosphatase 64 U/L (45-117); Anion Gap 6 (5-15); BUN 24 mg/dL (7-18); BUN/Creat Ratio 32.5 RATIO (10-20); Calcium,Total 9.3 mg/dL (8.5-10.1); Chloride 107 mmol/L (98-107); Cholesterol 158 mg/dL (200); Creatinine, Serum 0.74 mg/dL (0.55-1.02); EST Glomerular Filtration Rate 80 mL/min (>60); Est Glom Filt Rate - Afr Amer 97 mL/min (>60); Glucose 107 mg/dL (74-106); High Density Lipoprotein 78 mg/dL; Potassium 4.4 mmol/L (3.5-5.1); Protein, Total 7.7 g/dL (6.4-8.2); Sodium Level 140 mmol/L (136-145); Thyroid Stim Hormone (TSH) 1.39 uIU/mL (0.358-3.74); Triglycerides 81 mg/dL; Very Low Density Lipoprotein 16 mg/dL (5-40)
== END ==
PROVIDERS: Family Provider Family Medicine Geriatric Medicine; PCP Family Medicine Geriatric Medicine; Visit Provider Family Medicine Geriatric Medicine
DX: E55.9 Vitamin D deficiency, unspecified (principal); E78.5 Hyperlipidemia, unspecified; I10 Essential (primary) hypertension
CPT/HCPCS: 36415; 80053; 80061; 82306; 84443; 85025

== ENCOUNTER → 2020-01-04 13:40 | Outpatient (CLI) | payer MEDICARE, SELFPAY ==
[2019-12-17 13:54] VITALS: BMI 29.0
--- NOTE | 2020-01-04 13:43 | ECHOD_ITS ---
Reason For Study: Murmur Procedure This was a 2D Doppler, Color Flow transthoracic echocardiogram. The study was technically difficult. Exam performed in department. Left Ventricle Normal LV size. Mild concentric left ventricular hypertrophy. Left ventricular systolic function is normal. The estimated ejection fraction is 65 %. Diastolic function is indeterminate. No regional wall motion abnormalities noted. Right Ventricle Normal RV size. Normal systolic function. Atria Normal left atrium. Normal right atrium. No doppler evidence for ASD. Mitral Valve There is mild to moderate mitral annular calcification. Extension of the mitral annular calcification onto the base of the posterior mitral valve leaflet. Trivial mitral valve insufficiency. Tricuspid Valve Normal tricuspid valve. Trivial tricuspid valve insufficiency. Unable to estimate RV systolic pressure/pulmonary artery pressure due to technically difficult study. Aortic Valve The aortic valve is not well visualized, however based upon the 2D echocardiographic images obtained there appears to be diffuse thickening, calcification, and partial restriction. Moderate aortic stenosis. Trivial aortic valve insufficiency. Pulmonic Valve The pulmonic valve is not well visualized. Great Vessels Normal sized aortic root. Pericardium/Pleural No pericardial effusion. MMode/2D Measurements & Calculations LVIDd: 3.5 cm IVSd: 1.3 cm LVOT diam: 2.0 cm LVIDs: 2.2 cm LVPWd: 1.3 cm LVOT area: 3.1 cm2 RVDd: 3.2 cm FS: 38.1 % Ao root diam: 2.2 cm LAV(MOD-bp): 34.9 ml LA A4 area: 14.0 cm2 LAV(MOD-bp) Indexed: 18.5 ml/m2 LAV(MOD-sp2): 39.9 ml LAV(MOD-sp4): 31.4 ml LA dimension(2D): 2.9 cm RA A4 area: 12.9 cm2 Doppler Measurements & Calculations MV E max bari: 77.6 cm/sec Lat Peak E' Bari: 6.5 cm/sec Med Peak E' Bari: 5.4 cm/sec MV A max bari: 112.6 cm/sec E/E' lat: 11.9 E/E' med: 14.5 MV E/A: 0.69 Ao V2 max: 324.0 cm/sec LV V1 max: 104.1 cm/sec SV(LVOT): 72.6 ml Ao max P.0 mmHg LV V1 max P.3 mmHg Ao V2 mean: 250.3 cm/sec LV V1 mean P.4 mmHg Ao mean P.0 mmHg LV V1 mean: 72.8 cm/sec Ao V2 VTI: 82.2 cm LV V1 VTI: 23.5 cm EFFIE(I,D): 0.88 cm2 EFFIE(V,D): 0.99 cm2 PA V2 max: 82.2 cm/sec Interpretation Summary Left ventricular systolic function is normal. The estimated ejection fraction is 65 %. Mild concentric left ventricular hypertrophy. There is mild to moderate mitral annular calcification. Extension of the mitral annular calcification onto the base of the posterior mitral valve leaflet. Trivial mitral valve insufficiency. Trivial tricuspid valve insufficiency. The aortic valve is not well visualized, however based upon the 2D echocardiographic images obtained there appears to be diffuse thickening, calcification, and partial restriction. Moderate aortic stenosis. Trivial aortic valve insufficiency. Unable to estimate RV systolic pressure/pulmonary artery pressure due to technically difficult study. Diastolic function is indeterminate. Ordering Physician: Abraham Sheppard Referring Physician: Eh Huddleston Chi Performed By: Anne Shah, KRISTEN, RVT
== END ==
PROVIDERS: PCP Family Medicine Geriatric Medicine; Referring Provider Internal Medicine Cardiovascular Disease; Visit Provider Internal Medicine Cardiovascular Disease
DX: I35.0 Nonrheumatic aortic (valve) stenosis (principal)
CPT/HCPCS: 93306

== ENCOUNTER → 2020-03-29 14:48 | Outpatient (CLI) | payer MEDICARE, SELFPAY ==
[2019-12-17 13:54] VITALS: BMI 29.0
[2020-03-29 15:19] LABS: Absolute Lymphocyte Count 1.99 X10^3/uL (0.83-4.51); Absolute Neutrophil Count 2.9 X10^3/uL (2.0-7.7); Basophil# 0.03 X10^3/uL; Basophil% 0.5 % (0-1); Eosinophil# 0.07 X10^3/uL; Eosinophils% 1.3 % (0-5); Hematocrit 39.8 % (37-47); Lymphocyte # 1.99 X10^3/ul (4.0); Lymphocyte % 36.2 % (19-41); Mean Corp Hgb Conc 32.7 g/dL (32-36); Mean Corpuscular Hgb 30.5 pg (27.0-32.0); Mean Corpuscular Volume 93.4 fL (81-99); Mean Platelet Vol. 10.7 fl (6.2-12.0); Monocyte% 9.1 % (0-10); NRBC Flagged by Analyzer 0 % (0-5); Neutrophil # 2.88 X10^3/uL (2.7-7.7); Neutrophil % 52.5 % (47-70); Platelet Count 202 K/mm3 (150-450); RBC Distribution Width CV 12.7 % (11.6-14.6); RBC Distribution Width SD 43.3 fl (35.1-43.9); Red Blood Count 4.26 M/mm3 (4.2-5.4); White Blood Count 5.5 K/mm3 (4.4-11.0)
[2020-03-29 15:32] LABS: Vitamin D,25 Hydroxy 21.8 ng/mL
[2020-03-29 15:54] LABS: ALB/GLOB Ratio 0.9 RATIO (0.9-2.4); AST(SGOT) 55 U/L (15-37); Alanine Aminotransfer ALT/SGPT 27 U/L (13-56); Albumin, Serum 3.7 g/dL (3.2-5.0); Alkaline Phosphatase 66 U/L (45-117); Anion Gap 9 (5-15); BUN 22 mg/dL (7-18); Calcium,Total 9.4 mg/dL (8.5-10.1); Chloride 103 mmol/L (98-107); Cholesterol 174 mg/dL (200); Creatinine, Serum 0.82 mg/dL (0.55-1.02); EST Glomerular Filtration Rate 72 mL/min (>60); Est Glom Filt Rate - Afr Amer 87 mL/min (>60); Globulin 4.2 g/dL (2.2-4.2); Glucose 111 mg/dL (74-106); High Density Lipoprotein 73 mg/dL; Potassium 4.5 mmol/L (3.5-5.1); Protein, Total 7.9 g/dL (6.4-8.2); Sodium Level 137 mmol/L (136-145); Triglycerides 105 mg/dL; Very Low Density Lipoprotein 21 mg/dL (5-40)
== END ==
PROVIDERS: PCP Family Medicine Geriatric Medicine; Visit Provider Family Medicine Geriatric Medicine
DX: E55.9 Vitamin D deficiency, unspecified (principal); E78.5 Hyperlipidemia, unspecified; I10 Essential (primary) hypertension
CPT/HCPCS: 36415; 80053; 80061; 82306; 84443; 85025

== ENCOUNTER → 2020-09-08 13:52 | Outpatient (CLI) | payer MEDICARE, SELFPAY ==
[2020-06-06 13:44] VITALS: BMI 28.9
[2020-09-08 16:48] LABS: Absolute Lymphocyte Count 1.74 X10^3/uL (0.83-4.51); Absolute Neutrophil Count 2.7 X10^3/uL (2.0-7.7); Basophil# 0.03 X10^3/uL; Basophil% 0.6 % (0-1); Eosinophil# 0.06 X10^3/uL; Eosinophils% 1.2 % (0-5); Lymphocyte # 1.74 X10^3/ul (4.0); Lymphocyte % 34.9 % (19-41); Mean Corp Hgb Conc 32.5 g/dL (32-36); Mean Corpuscular Hgb 30.4 pg (27.0-32.0); Mean Corpuscular Volume 93.7 fL (81-99); Mean Platelet Vol. 11.2 fl (6.2-12.0); Monocyte# 0.45 X10^3/uL; NRBC Flagged by Analyzer 0 % (0-5); Neutrophil # 2.69 X10^3/uL (2.7-7.7); Neutrophil % 54.1 % (47-70); Platelet Count 190 K/mm3 (150-450); RBC Distribution Width CV 12.8 % (11.6-14.6); RBC Distribution Width SD 44.3 fl (35.1-43.9); Red Blood Count 4.27 M/mm3 (4.2-5.4)
[2020-09-08 17:06] LABS: ALB/GLOB Ratio 0.9 RATIO (0.9-2.4); AST(SGOT) 50 U/L (15-37); Alanine Aminotransfer ALT/SGPT 24 U/L (13-56); Albumin, Serum 3.7 g/dL (3.2-5.0); Alkaline Phosphatase 70 U/L (45-117); Anion Gap 7 (5-15); BUN 18 mg/dL (7-18); Calcium,Total 8.9 mg/dL (8.5-10.1); Chloride 106 mmol/L (98-107); Cholesterol 156 mg/dL (200); Creatinine, Serum 0.78 mg/dL (0.55-1.02); EST Glomerular Filtration Rate 75 mL/min (>60); Est Glom Filt Rate - Afr Amer 91 mL/min (>60); Globulin 3.9 g/dL (2.2-4.2); Glucose 87 mg/dL (74-106); High Density Lipoprotein 72 mg/dL; Potassium 4.2 mmol/L (3.5-5.1); Protein, Total 7.6 g/dL (6.4-8.2); Sodium Level 139 mmol/L (136-145); Thyroid Stim Hormone (TSH) 1.62 uIU/mL (0.358-3.74); Triglycerides 98 mg/dL; Very Low Density Lipoprotein 20 mg/dL (5-40)
== END ==
PROVIDERS: PCP Family Medicine Geriatric Medicine; Visit Provider Family Medicine Geriatric Medicine
DX: E55.9 Vitamin D deficiency, unspecified (principal); E78.5 Hyperlipidemia, unspecified; I10 Essential (primary) hypertension
CPT/HCPCS: 36415; 80053; 80061; 82306; 84443; 85025

== ENCOUNTER → 2021-03-09 14:15 | Outpatient (CLI) | payer MEDICARE, SELFPAY ==
[2020-06-06 13:44] VITALS: BMI 28.9
[2021-03-09 17:34] LABS: Absolute Lymphocyte Count 1.85 X10^3/uL (0.83-4.51); Absolute Neutrophil Count 3.3 X10^3/uL (2.0-7.7); Basophil# 0.02 X10^3/uL; Basophil% 0.3 % (0-1); Eosinophil# 0.06 X10^3/uL; Hematocrit 37.8 % (37-47); Hemoglobin 12.5 g/dL (12.0-15.0); Lymphocyte # 1.85 X10^3/ul (0.83-4.51); Lymphocyte % 32.3 % (19-41); Mean Corp Hgb Conc 33.1 g/dL (32-36); Mean Corpuscular Hgb 30.6 pg (27.0-32.0); Mean Corpuscular Volume 92.4 fL (81-99); Mean Platelet Vol. 11.3 fl (6.2-12.0); Monocyte% 8.7 % (0-10); NRBC Flagged by Analyzer 0 % (0-5); Neutrophil % 57.7 % (47-70); Platelet Count 194 K/mm3 (150-450); RBC Distribution Width CV 12.9 % (11.6-14.6); RBC Distribution Width SD 43.7 fl (35.1-43.9); Red Blood Count 4.09 M/mm3 (4.2-5.4); White Blood Count 5.7 K/mm3 (4.4-11.0)
[2021-03-09 17:56] LABS: AST(SGOT) 54 U/L (15-37); Alanine Aminotransfer ALT/SGPT 25 U/L (13-56); Albumin, Serum 3.9 g/dL (3.2-5.0); Alkaline Phosphatase 68 U/L (45-117); Anion Gap 5 (5-15); BUN 21 mg/dL (7-18); Calcium,Total 9.3 mg/dL (8.5-10.1); Chloride 108 mmol/L (98-107); Cholesterol 175 mg/dL (200); Creatinine, Serum 0.84 mg/dL (0.55-1.02); EST Glomerular Filtration Rate 69 mL/min (>60); Est Glom Filt Rate - Afr Amer 84 mL/min (>60); Globulin 4.1 g/dL (2.2-4.2); Glucose 99 mg/dL (74-106); High Density Lipoprotein 83 mg/dL; Potassium 4.2 mmol/L (3.5-5.1); Sodium Level 139 mmol/L (136-145); Thyroid Stim Hormone (TSH) 1.43 uIU/mL (0.358-3.74); Triglycerides 95 mg/dL; Very Low Density Lipoprotein 19 mg/dL (5-40)
== END ==
PROVIDERS: PCP Family Medicine Geriatric Medicine; Visit Provider Family Medicine Geriatric Medicine
DX: I10 Essential (primary) hypertension (principal); E78.5 Hyperlipidemia, unspecified; E55.9 Vitamin D deficiency, unspecified
CPT/HCPCS: 36415; 80053; 80061; 82306; 84443; 85025

== ENCOUNTER 2021-05-23 12:23 | Emergency (ER) | payer MEDICARE, SELFPAY ==
[2020-06-06 13:44] VITALS: BMI 28.9
[2021-05-23 12:25] VITALS: BP 141/62; PULSE 61; RESP 16; TEMP 36; O2SAT 100; BMI 29.7
--- NOTE | 2021-05-23 13:14 | CT_ITS ---
STUDY: CT BRAIN WITHOUT CONTRAST REASON FOR EXAM: Female, 81 years old. Head injury RADIATION DOSAGE (If Supplied By Facility): CTDIvol = ( 44.99 ) mGy, DLP = ( 846.73 ) mGycm TECHNIQUE: Transaxial CT imaging of the brain was performed without administration of intravenous contrast material. Individualized dose optimization techniques were used for this CT. COMPARISON: Comparison is made with prior study dated 05/25/2018. FINDINGS: Normal soft tissue structures. There is hyperostosis frontalis internus. There is mild cerebral atrophy with widening of the extra-axial spaces and ventricular dilatation. There are areas of decreased attenuation within the white matter tracts of the supratentorial brain, consistent with microvascular disease changes. Stable old lacunar infarct of the left basal ganglion. Normal brainstem. There is mild cerebellar atrophy. There is no intracranial hemorrhage. There are no findings of an acute ischemic infarction. Atherosclerotic calcification of the vertebral arteries and cavernous portions of the internal carotid arteries bilaterally. Normal visualized paranasal sinuses. CT/Brain/Head without Contrast IMPRESSION: Chronic involutional changes of the brain. Electronically Signed: Jamey Martin MD at 13:52 EDT , Service support ,
[2021-05-23] MEDS: Diphth,Pertuss(Acell),Tet Vac 0.5 ML Vial IM (13:38)
[2021-05-23] MEDS: Lidocaine 1% (20 ml mdv) 20 ML Vial INFILT (13:39)
--- NOTE | 2021-05-23 15:28 | EX.ED.GENINJ ---
HPI History of Present Illness Chief Complaint: Other, Pain/Inj Informant: patient Onset/Context/Timing Onset: Today Mechanism/Context: Fall and Trip Location of pain/injuries: Left lower leg and - (Face) Quality of Pain: Dull Location: Face Worsened by: Nothing Relieved by: Nothing Associated Symptoms Associated Symptoms: Negative for Parasthesias, Weakness, Inability to ambulate, Loss of consciousness and Amnesia Narrative Narrative: Patient presents after a fall that occurred today. Patient states she was walking near her garden and she tripped over a stone. Patient fell forward and hit her face. Patient also admits to an abrasion to her left leg. Patient denies any loss of consciousness. Patient is unsure of her last tetanus. Patient thinks it was at least 20 years ago. Patient denies any visual changes. Patient is on Plavix and aspirin. [facility] Medical History (Updated 05/23/21 @ 15:[address] Basim Gaming, DO) Atherosclerotic heart disease of [place] coronary artery without angina pectoris Elevated troponin I level Essential hypertension Left lingularlobe CAP Non-ST elevation (NSTEMI) myocardial infarction Nonrheumatic aortic (valve) stenosis Old myocardial infarction Pure hypercholesterolemia Seborrheic keratosis Home Medications brimonidine 2 drp EACH EYE BID 11/25/17 [History Last Taken 11/25/17] dorzolamide-timolol 1 drp EACH EYE BID 11/25/17 [History Last Taken 11/25/17] temazepam 30 mg PO QHS 11/25/17 [History Last Taken 11/24/17] aspirin 81 mg PO DAILY@0800 #30 tab 11/28/17 [Rx Last Taken Unknown] latanoprost 0.005 % eye drops 1 drp OPHTHALMIC QPM 12/17/19 [History Last Taken Unknown] atorvastatin 40 mg tablet 40 mg PO QHS #90 tab 06/06/20 [Rx Last Taken Unknown] carvedilol 12.5 mg tablet 12.5 mg PO BID #180 tab 06/06/20 [Rx Last Taken Unknown] clopidogrel 75 mg tablet 75 mg PO DAILY #90 tab 06/06/20 [Rx Last Taken Unknown] valsartan 160 mg PO DAILY 05/23/21 [History Last Taken Unknown] Allergy/AdvReac Type Severity Reaction Status Date / Time No Known Allergies Allergy Verified 05/23/21 12:29 Family History Father Diabetes Grandmother Colon cancer Surgical History History of bilateral hip replacements History of left heart catheterization (LHC) (~12/27/17) Social History Smoking Status: Never smoker alcohol intake: current alcohol intake frequency: holidays/special occasions only Alcohol type: wine substance use type: does not use caffeine: Yes Type: coffee what type of physical activity do you participate in: none seatbelt use: always do you feel safe at home: Yes ROS ROS ED Constitutional Constitutional ED: Denies chills or fever(s) Eyes Eyes: Denies blurry vision or change in vision ENT ENT ED: Denies rhinorrhea or sore throat Cardiovascular Cardiovascular: Denies chest pain or palpitations Respiratory/Chest Respiratory/Chest: Denies cough or dyspnea Gastrointestinal Gastrointestinal: Denies nausea or vomiting Genitourinary Genitourinary ED: Denies dysuria or hematuria Musculoskeletal Musculoskeletal: Denies back pain or neck pain Integumentary Reports Abrasions; Denies abscess or rash Neurologic Neurologic: Denies headache(s) or weakness Allergic/Immunologic Allergic/Immunologic ED: Denies mouth swelling or urticaria EXAM Physical Exam Const Vital Signs: 05/23/21 12:25 Temperature 96.8 F L Temperature Source Temporal Pulse Rate 61 Respiratory Rate 16 Blood Pressure 141/62 H Blood Pressure Mean 88 Pulse Ox 100 Oxygen Delivery Method Room Air Positive well nourished and well developed General Appearance ED: well developed HEENT HEENT Narrative: There is no epistaxis noted. There is no septal deviation or septal hematoma noted. Eyes PERRL and EOMs intact bilaterally Neck full ROM General: Negative for tenderness Neuro oriented x3, CN's II-XII intact bilaterally, moves all extremities, no focal motor deficits and no sensory deficits noted Sensorium / Orientation: alert Psych mental status grossly normal Skin Skin Narrative: There are abrasions over the right forehead and bridge of the nose. There is an abrasion over the upper lip. There is also a 1 cm full-thickness linear laceration over the upper lip in the midline. There is also a superficial abrasion over the left anterior leg. There is no bleeding. There is full range of motion of the upper and lower extremities. There are no foreign bodies noted. PROC Procedures Lacerations Upper lip: Length: 1 cm Depth: Sub Q Shape: Linear Prep: Sterile Conditions and Chlorhexadine Laceration repair: Lidocaine and Local Number of Sutures/[place]: 2 Suture Information: Ethilon, Simple and 5-0 MDM MDM MDM Narrative Medical decision making narrative: CT scan of the brain was obtained. There is no acute bleed or infarct. There are chronic changes. This was interpreted by the radiologist and reviewed by myself. The wound was cleaned with chlorhexidine. The wound was anesthetized with 1% plain lidocaine locally. The wound was closed with 2 simple interrupted #5-0 nylon sutures under sterile technique. Patient tolerated the procedure well. Bacitracin dressing was applied. Patient was instructed to keep the wound clean and dry. Patient was instructed to follow-up with her primary care physician in 5 days for wound recheck and suture removal. Patient understood and was agreeable with the plan. All questions were answered. Radiography Diagnostic Testing: Radiology Impression Brain CT 05/23/21 13:14 IMPRESSION: Chronic involutional changes of the brain. Electronically Signed: Jamey Martin MD at 13:52 EDT , Service support , Discharge Plan Triage Chief Complaint: Other, Pain/Inj ED Provider: Basim Gaming Dx/Rx/DC Orders Clinical Impression: Laceration of lip, Abrasions of multiple sites, Closed head injury Instructions: ED Abrasion, ED Head Injury (Adult), ED Laceration: All Closures Prescriptions: No Action latanoprost 0.005 % drops 1 drp OPHTHALMIC QPM RF: 0 atorvastatin 40 mg tablet 40 mg PO QHS Qty: 90 RF: 4 carvedilol 12.5 mg tablet 12.5 mg PO BID Qty: 180 RF: 4 clopidogrel 75 mg tablet 75 mg PO DAILY Qty: 90 RF: 4 temazepam 30 MG capsule 30 mg PO QHS RF: 0 brimonidine 1 DROP bottle 2 drp EACH EYE BID RF: 0 dorzolamide-timolol 10 ML drops 1 drp EACH EYE BID RF: 0 aspirin 81 MG tablet 81 mg PO DAILY@0800 Qty: 30 RF: 0 valsartan 160 mg Tablet 160 mg PO DAILY RF: 0 Primary Care Provider: Eh Huddleston Chi Referrals: Eh Huddleston Chi, MD [Primary Care Provider] - 5 Days for suture removal Disposition Disposition: Home, Self Care
== END 2021-05-23 15:50 | disposition home or self-care (01) ==
PROVIDERS: Emergency Provider Emergency Medicine; PCP Family Medicine Geriatric Medicine
DX: S01.511A Laceration without foreign body of lip, initial encounter (principal); S80.812A Abrasion, left lower leg, initial encounter; S09.90XA Unspecified injury of head, initial encounter; I25.10 Atherosclerotic heart disease of native coronary artery without angina pectoris; I10 Essential (primary) hypertension; I25.2 Old myocardial infarction; E78.00 Pure hypercholesterolemia, unspecified; Z79.82 Long term (current) use of aspirin; Z79.899 Other long term (current) drug therapy; Z79.02 Long term (current) use of antithrombotics/antiplatelets; W01.0XXA Fall on same level from slipping, tripping and stumbling without subsequent striking against object, initial encounter
CPT/HCPCS: 12011; 70450; 90471; 90715; 99283

== ENCOUNTER 2021-07-04 10:13 | Emergency (ER) | payer MEDICARE, SELFPAY ==
[2021-07-04 10:13] VITALS: BP 124/73; BP 156/67; PULSE 60; PULSE 62; RESP 18; TEMP 36.5; O2SAT 98; O2SAT 99; BMI 28.9
--- NOTE | 2021-07-04 10:41 | EDS_ITS ---
HPI History of Present Illness Chief Complaint: Laceration Narrative Narrative: Patient was try to do some yard work, she slipped off a loose block and lacerated her anterior leg region. She is able to ambulate she has no other injuries no head injury no loss consciousness no neck pain. She is not anticoagulated she does take aspirin. [facility] Medical History (Updated 07/04/21 @ 10:[address] Abraham Michael MD) Atherosclerotic heart disease of [place] coronary artery without angina pectoris Essential hypertension Non-ST elevation (NSTEMI) myocardial infarction Nonrheumatic aortic (valve) stenosis Old myocardial infarction Pure hypercholesterolemia Seborrheic keratosis Home Medications brimonidine 2 drp EACH EYE BID 11/25/17 [History Last Taken 11/25/17] dorzolamide-timolol 1 drp EACH EYE BID 11/25/17 [History Last Taken 11/25/17] temazepam 30 mg PO QHS 11/25/17 [History Last Taken 11/24/17] aspirin 81 mg PO DAILY@0800 #30 tab 11/28/17 [Rx Last Taken Unknown] latanoprost 0.005 % eye drops 1 drp OPHTHALMIC QPM 12/17/19 [History Last Taken Unknown] valsartan 160 mg tablet 160 mg PO DAILY #90 tab 05/30/21 [Rx Last Taken Unknown] atorvastatin 40 mg tablet 40 mg PO QHS #90 tab 06/07/21 [Rx Last Taken Unknown] carvedilol 12.5 mg tablet 12.5 mg PO BID #180 tab 06/07/21 [Rx Last Taken Unknown] clopidogrel 75 mg tablet 75 mg PO DAILY #90 tab 06/07/21 [Rx Last Taken Unknown] Allergy/AdvReac Type Severity Reaction Status Date / Time No Known Allergies Allergy Verified 07/04/21 10:13 Family History Father Diabetes Grandmother Colon cancer Surgical History History of bilateral hip replacements History of left heart catheterization (LHC) (~12/27/17) Social History Smoking Status: Never smoker alcohol intake: current alcohol intake frequency: holidays/special occasions only Alcohol type: wine substance use type: does not use caffeine: Yes Type: coffee what type of physical activity do you participate in: none seatbelt use: always do you feel safe at home: Yes ROS ROS ED ROS Narrative Past medical history: Significant for hypercholesterolemia aortic stenosis, history of coronary artery disease, hypertension. Medications: Reviewed Social history: Noncontributory Review of systems: Musculoskeletal: Leg injury as in HPI Skin: Laceration as in HPI Neurological: No paresthesias or lower extremity weakness. Hematologic: No easy bleeding or easy bruising EXAM Physical Exam Narrative Exam Narrative: Physical exam General: Patient does not appear in significant distress . Head: Normocephalic, Atraumatic Neck: No C-spine tenderness Cardiovascular: Normal distal pulses Back: Nontender, Normal Inspection. Extremities: Right lower extremity reveals a horizontal 8 cm laceration, there is a hematoma. There is no bony tenderness or bony involvement. No ankle pain. Skin: Laceration as above Neurological: Normal strength and sensation Const Vital Signs: 07/04/21 10:13 Temperature 97.7 F L Temperature Source Temporal Pulse Rate 62 Respiratory Rate 18 Blood Pressure 124/73 H Blood Pressure Mean 90 Pulse Ox 99 Oxygen Delivery Method Room Air MDM MDM MDM Narrative Medical decision making narrative: Patient has very brittle skin, it is unlikely that suturing would hold. I told the nurse to Steri-Strip and bandage it. Otherwise hemostasis is achieved and patient will be discharged with wound care instructions. Discharge Plan Triage Chief Complaint: Laceration ED Provider: Abraham Michael Dx/Rx/DC Orders Clinical Impression: Laceration of leg Instructions: ED Laceration Small or ..., ED Wound Check (No Infection) Prescriptions: No Action latanoprost 0.005 % drops 1 drp OPHTHALMIC QPM RF: 0 valsartan 160 mg tablet 160 mg PO DAILY Qty: 90 RF: 4 temazepam 30 MG capsule 30 mg PO QHS RF: 0 brimonidine 1 DROP bottle 2 drp EACH EYE BID RF: 0 dorzolamide-timolol 10 ML drops 1 drp EACH EYE BID RF: 0 aspirin 81 MG tablet 81 mg PO DAILY@0800 Qty: 30 RF: 0 carvedilol 12.5 mg tablet 12.5 mg PO BID Qty: 180 RF: 4 atorvastatin 40 mg tablet 40 mg PO QHS Qty: 90 RF: 4 clopidogrel 75 mg tablet 75 mg PO DAILY Qty: 90 RF: 4 Primary Care Provider: Eh Huddleston Chi Referrals: Eh Huddleston Chi, MD [Primary Care Provider] - 2 Days for wound check Disposition Disposition: Home, Self Care
[2021-07-04 11:54] VITALS: RESP 17
== END 2021-07-04 11:54 | disposition home or self-care (01) ==
LOC: ED 10:46
PROVIDERS: Emergency Provider Emergency Medicine; PCP Family Medicine Geriatric Medicine
DX: S81.812A Laceration without foreign body, left lower leg, initial encounter (principal); I25.10 Atherosclerotic heart disease of native coronary artery without angina pectoris; I25.2 Old myocardial infarction; X58.XXXA Exposure to other specified factors, initial encounter
CPT/HCPCS: 99284

== ENCOUNTER → 2021-09-13 15:34 | Outpatient (CLI) | payer MEDICARE, SELFPAY ==
[2021-09-13 17:15] LABS: Absolute Neutrophil Count 2.5 X10^3/uL (2.0-7.7); Basophil# 0.03 X10^3/uL; Basophil% 0.7 % (0-1); Eosinophil# 0.09 X10^3/uL; Hematocrit 36.8 % (37-47); Lymphocyte % 33.3 % (19-41); Mean Corp Hgb Conc 32.6 g/dL (32-36); Mean Corpuscular Hgb 30.1 pg (27.0-32.0); Mean Corpuscular Volume 92.2 fL (81-99); Mean Platelet Vol. 11.1 fl (6.2-12.0); Monocyte# 0.38 X10^3/uL; Monocyte% 8.4 % (0-10); NRBC Flagged by Analyzer 0 % (0-5); Neutrophil # 2.51 X10^3/uL (2.7-7.7); Neutrophil % 55.6 % (47-70); Platelet Count 172 K/mm3 (150-450); RBC Distribution Width CV 12.6 % (11.6-14.6); RBC Distribution Width SD 42.6 fl (35.1-43.9); Red Blood Count 3.99 M/mm3 (4.2-5.4); White Blood Count 4.5 K/mm3 (4.4-11.0)
[2021-09-13 17:39] LABS: Vitamin D,25 Hydroxy 25.4 ng/mL
[2021-09-13 17:42] LABS: ALB/GLOB Ratio 0.8 RATIO (0.9-2.4); AST(SGOT) 47 U/L (15-37); Alanine Aminotransfer ALT/SGPT 24 U/L (13-56); Albumin, Serum 3.4 g/dL (3.2-5.0); Alkaline Phosphatase 65 U/L (45-117); Anion Gap 6 (5-15); BUN 16 mg/dL (7-18); BUN/Creat Ratio 23.7 RATIO (10-20); Calcium,Total 9.1 mg/dL (8.5-10.1); Chloride 107 mmol/L (98-107); Creatinine, Serum 0.68 mg/dL (0.55-1.02); EST Glomerular Filtration Rate 89 mL/min (>60); Est Glom Filt Rate - Afr Amer 107 mL/min (>60); Globulin 4.1 g/dL (2.2-4.2); Glucose 98 mg/dL (74-106); Potassium 3.9 mmol/L (3.5-5.1); Protein, Total 7.5 g/dL (6.4-8.2); Sodium Level 139 mmol/L (136-145); Thyroid Stim Hormone (TSH) 1.65 uIU/mL (0.358-3.74)
== END ==
PROVIDERS: PCP Family Medicine Geriatric Medicine; Visit Provider Family Medicine Geriatric Medicine
DX: E55.9 Vitamin D deficiency, unspecified (principal); E78.5 Hyperlipidemia, unspecified; I10 Essential (primary) hypertension
CPT/HCPCS: 80053; 82306; 84443; 85025

== ENCOUNTER → 2022-03-14 | Outpatient (CLI) | payer MEDICARE, SELFPAY ==
[2022-03-14 17:19] LABS: Absolute Lymphocyte Count 1.82 X10^3/uL (0.83-4.51); Absolute Neutrophil Count 3.3 X10^3/uL (2.0-7.7); Basophil# 0.03 X10^3/uL; Basophil% 0.5 % (0-1); Eosinophil# 0.12 X10^3/uL; Eosinophils% 2.1 % (0-5); Hematocrit 39.9 % (37-47); Hemoglobin 13.2 g/dL (12.0-15.0); Lymphocyte # 1.82 X10^3/ul (0.83-4.51); Lymphocyte % 31.5 % (19-41); Mean Corp Hgb Conc 33.1 g/dL (32-36); Mean Corpuscular Hgb 30.5 pg (27.0-32.0); Mean Corpuscular Volume 92.1 fL (81-99); Mean Platelet Vol. 10.8 fl (6.2-12.0); Monocyte# 0.51 X10^3/uL; Monocyte% 8.8 % (0-10); NRBC Flagged by Analyzer 0 % (0-5); Neutrophil # 3.28 X10^3/uL (2.7-7.7); Neutrophil % 56.9 % (47-70); Platelet Count 184 K/mm3 (150-450); RBC Distribution Width CV 12.8 % (11.6-14.6); RBC Distribution Width SD 43.7 fl (35.1-43.9); Red Blood Count 4.33 M/mm3 (4.2-5.4); White Blood Count 5.8 K/mm3 (4.4-11.0)
[2022-03-14 17:52] LABS: AST(SGOT) 54 U/L (15-37); Alanine Aminotransfer ALT/SGPT 26 U/L (13-56); Alkaline Phosphatase 66 U/L (45-117); Anion Gap 5 (5-15); BUN 23 mg/dL (7-18); BUN/Creat Ratio 27.3 RATIO (10-20); Calcium,Total 9.4 mg/dL (8.5-10.1); Chloride 106 mmol/L (98-107); Cholesterol 174 mg/dL (200); Creatinine, Serum 0.84 mg/dL (0.55-1.02); EST Glomerular Filtration Rate 69 mL/min (>60); Est Glom Filt Rate - Afr Amer 83 mL/min (>60); Glucose 106 mg/dL (74-106); High Density Lipoprotein 77 mg/dL; Potassium 4.5 mmol/L (3.5-5.1); Sodium Level 139 mmol/L (136-145); Thyroid Stim Hormone (TSH) 1.69 uIU/mL (0.358-3.74); Triglycerides 113 mg/dL; Very Low Density Lipoprotein 23 mg/dL (5-40)
[2022-03-14 18:01] LABS: Vitamin D,25 Hydroxy 27.2 ng/mL
== END | disposition home or self-care (01) ==
LOC: POLAB3 13:09
PROVIDERS: PCP Family Medicine Geriatric Medicine; Visit Provider Family Medicine Geriatric Medicine
DX: I10 Essential (primary) hypertension (principal); E78.5 Hyperlipidemia, unspecified; E55.9 Vitamin D deficiency, unspecified
CPT/HCPCS: 36415; 80053; 80061; 82306; 84443; 85025

== ENCOUNTER → 2022-07-09 | Outpatient (CLI) | payer MEDICARE, SELFPAY ==
--- NOTE | 2022-07-09 13:52 | ECHOD_ITS ---
Reason For Study: AV STENOSIS Procedure This was a 2D Doppler, Color Flow transthoracic echocardiogram. The study was technically difficult. Exam performed in department. Left Ventricle Normal LV size. Left ventricular systolic function is normal. The estimated ejection fraction is 65 %. Diastolic function is indeterminate. No regional wall motion abnormalities noted. Right Ventricle Normal RV size. Normal systolic function. Atria The left atrium is mildly enlarged. Normal right atrium. Intact atrial septum. Mitral Valve There is moderate mitral annular calcification. Extension of the mitral annular calcification onto the base of the posterior mitral valve leaflet. The mitral papillary muscle appears thickened and/or calcified. Mild mitral valve stenosis. Trivial mitral valve insufficiency. Tricuspid Valve Normal tricuspid valve. Mild tricuspid valve insufficiency. Unable to estimate RV systolic pressure due to insufficient tricuspid regurgitant envelope. Aortic Valve The aortic valve leaflets are not well visualized, however, based upon the 2D echocardiographic images obtained there appears to be diffuse thickening, calcification, and partial restriction. Severe aortic stenosis. Trivial aortic valve insufficiency. Pulmonic Valve The pulmonic valve is not well visualized. Great Vessels Normal sized aortic root. Pericardium/Pleural No pericardial effusion. MMode/2D Measurements & Calculations LVIDd: 4.5 cm IVSd: 1.1 cm LVOT diam: 1.9 cm LVIDs: 3.2 cm LVPWd: 1.2 cm LVOT area: 2.7 cm2 RVDd: 2.7 cm FS: 29.3 % Ao root diam: 2.8 cm LAV(MOD-bp): 78.9 ml LVAd ap4: 30.0 cm2 LAV(MOD-bp) Indexed: 42.1 ml/m2 LVLd ap4: 8.6 cm LAV(MOD-sp2): 61.7 ml EDV(MOD-sp4): 86.6 ml LAV(MOD-sp4): 90.8 ml EDV(sp4-el): 89.1 ml LVAs ap4: 16.4 cm2 LVLs ap4: 7.0 cm ESV(MOD-sp4): 33.1 ml ESV(sp4-el): 32.6 ml EF(MOD-sp4): 61.8 % EF(sp4-el): 63.4 % SV(MOD-sp4): 53.6 ml SV(sp4-el): 56.4 ml LA A4 area: 26.3 cm2 LA dimension(2D): 3.6 cm RA A4 area: 15.5 cm2 Time Measurements MV dec time: 0.23 sec Doppler Measurements & Calculations MV E max bari: 99.4 cm/sec Lat Peak E' Bari: 7.9 cm/sec Med Peak E' Bari: 8.9 cm/sec MV A max bari: 111.6 cm/sec E/E' lat: 12.6 E/E' med: 11.2 MV E/A: 0.89 MV V2 max: 113.9 cm/sec Ao V2 max: 419.6 cm/sec MV max P.2 mmHg MV dec slope: 428.1 cm/sec2 Ao max P.7 mmHg MV V2 mean: 68.6 cm/sec Ao V2 mean: 323.2 cm/sec MV mean P.2 mmHg Ao mean P.8 mmHg MV V2 VTI: 44.9 cm Ao V2 VTI: 123.3 cm MVA(VTI): 1.8 cm2 EFFIE(I,D): 0.64 cm2 EFFIE(V,D): 0.72 cm2 LV V1 max: 112.1 cm/sec SV(LVOT): 79.0 ml LV V1 max P.0 mmHg LV V1 mean P.7 mmHg LV V1 mean: 76.3 cm/sec LV V1 VTI: 29.3 cm ECHO/Echo Complete Interpretation Summary The study was technically difficult. Left ventricular systolic function is normal. The estimated ejection fraction is 65 %. The left atrium is mildly enlarged. There is moderate mitral annular calcification. Extension of the mitral annular calcification onto the base of the posterior mi tral valve leaflet. The mitral papillary muscle appears thickened and/or calcified. Mild mitral valve stenosis. Trivial mitral valve insufficiency. Mild tricuspid valve insufficiency. Severe aortic stenosis. Trivial aortic valve insufficiency. Unable to estimate RV systolic pressure due to insufficient tricuspid regurgita nt envelope. Diastolic function is indeterminate. Ordering Physician: Abraham Sheppard Referring Physician: Abraham Sheppard Performed By: Yelena العلي RCS
== END | disposition home or self-care (01) ==
LOC: CVS 13:51
PROVIDERS: PCP Family Medicine Geriatric Medicine; Referring Provider Internal Medicine Cardiovascular Disease; Visit Provider Internal Medicine Cardiovascular Disease
DX: I25.10 Atherosclerotic heart disease of native coronary artery without angina pectoris (principal); I35.0 Nonrheumatic aortic (valve) stenosis
CPT/HCPCS: 93306; Q9957; A4216

== ENCOUNTER → 2022-09-25 | Outpatient (CLI) | payer MEDICARE, SELFPAY ==
[2022-09-25 17:22] LABS: Absolute Lymphocyte Count 1.83 X10^3/uL (0.83-4.51); Absolute Neutrophil Count 3.2 X10^3/uL (2.0-7.7); Basophil# 0.03 X10^3/uL; Basophil% 0.5 % (0-1); Eosinophil# 0.24 X10^3/uL; Eosinophils% 4.1 % (0-5); Hematocrit 37.3 % (37-47); Hemoglobin 12.5 g/dL (12.0-15.0); Lymphocyte # 1.83 X10^3/ul (0.83-4.51); Lymphocyte % 31.6 % (19-41); Mean Corp Hgb Conc 33.5 g/dL (32-36); Mean Corpuscular Hgb 31.3 pg (27.0-32.0); Mean Corpuscular Volume 93.3 fL (81-99); Monocyte# 0.46 X10^3/uL; Monocyte% 7.9 % (0-10); NRBC Flagged by Analyzer 0 % (0-5); Neutrophil # 3.22 X10^3/uL (2.7-7.7); Neutrophil % 55.7 % (47-70); Platelet Count 168 K/mm3 (150-450); RBC Distribution Width CV 13.3 % (11.6-14.6); RBC Distribution Width SD 45.9 fl (35.1-43.9); White Blood Count 5.8 K/mm3 (4.4-11.0)
[2022-09-25 17:49] LABS: Vitamin D,25 Hydroxy 20.4 ng/mL
[2022-09-25 17:57] LABS: AST(SGOT) 50 U/L (15-37); Alanine Aminotransfer ALT/SGPT 23 U/L (13-56); Albumin, Serum 3.6 g/dL (3.2-5.0); Alkaline Phosphatase 56 U/L (45-117); Anion Gap 10 (5-15); BUN 19 mg/dL (7-18); BUN/Creat Ratio 24.6 RATIO (10-20); Chloride 104 mmol/L (98-107); Cholesterol 163 mg/dL (200); Creatinine, Serum 0.77 mg/dL (0.55-1.02); EST Glomerular Filtration Rate 76 mL/min (>60); Est Glom Filt Rate - Afr Amer 92 mL/min (>60); Globulin 3.6 g/dL (2.2-4.2); Glucose 94 mg/dL (74-106); High Density Lipoprotein 94 mg/dL; Potassium 3.9 mmol/L (3.5-5.1); Protein, Total 7.2 g/dL (6.4-8.2); Sodium Level 139 mmol/L (136-145); Thyroid Stim Hormone (TSH) 1.44 uIU/mL (0.358-3.74); Triglycerides 71 mg/dL; Very Low Density Lipoprotein 14 mg/dL (5-40)
== END | disposition home or self-care (01) ==
LOC: POLAB3 14:44
PROVIDERS: PCP Family Medicine Geriatric Medicine; Visit Provider Family Medicine Geriatric Medicine
DX: I10 Essential (primary) hypertension (principal); E55.9 Vitamin D deficiency, unspecified; E78.5 Hyperlipidemia, unspecified
CPT/HCPCS: 36415; 80053; 80061; 82306; 84443; 85025

== ENCOUNTER → 2023-03-28 | Outpatient (CLI) | payer MEDICARE, SELFPAY ==
[2023-03-28 17:40] LABS: Absolute Lymphocyte Count 1.68 X10^3/uL (0.83-4.51); Absolute Neutrophil Count 2.9 X10^3/uL (2.0-7.7); Basophil# 0.02 X10^3/uL; Basophil% 0.4 % (0-1); Eosinophil# 0.11 X10^3/uL; Eosinophils% 2.1 % (0-5); Hematocrit 35.9 % (37-47); Hemoglobin 11.9 g/dL (12.0-15.0); Lymphocyte # 1.68 X10^3/ul (0.83-4.51); Lymphocyte % 32.2 % (19-41); Mean Corp Hgb Conc 33.1 g/dL (32-36); Mean Corpuscular Hgb 31.1 pg (27.0-32.0); Mean Corpuscular Volume 93.7 fL (81-99); Mean Platelet Vol. 10.7 fl (6.2-12.0); Monocyte# 0.49 X10^3/uL; Monocyte% 9.4 % (0-10); NRBC Flagged by Analyzer 0 % (0-5); Neutrophil # 2.89 X10^3/uL (2.7-7.7); Neutrophil % 55.5 % (47-70); Platelet Count 182 K/mm3 (150-450); RBC Distribution Width CV 13.5 % (11.6-14.6); RBC Distribution Width SD 46.4 fl (35.1-43.9); Red Blood Count 3.83 M/mm3 (4.2-5.4); White Blood Count 5.2 K/mm3 (4.4-11.0)
[2023-03-28 19:31] LABS: Vitamin D,25 Hydroxy 32.1 ng/mL
[2023-03-28 19:36] LABS: AST(SGOT) 54 U/L (15-37); Alanine Aminotransfer ALT/SGPT 21 U/L (13-56); Albumin, Serum 3.8 g/dL (3.2-5.0); Alkaline Phosphatase 72 U/L (45-117); Anion Gap 6 (5-15); BUN 23 mg/dL (7-18); BUN/Creat Ratio 26.8 RATIO (10-20); Calcium,Total 9.1 mg/dL (8.5-10.1); Chloride 110 mmol/L (98-107); Cholesterol 146 mg/dL (200); Creatinine, Serum 0.86 mg/dL (0.55-1.02); EST Glomerular Filtration Rate 67 mL/min (>60); Est Glom Filt Rate - Afr Amer 81 mL/min (>60); Globulin 3.8 g/dL (2.2-4.2); Glucose 104 mg/dL (74-106); High Density Lipoprotein 85 mg/dL; Potassium 4.3 mmol/L (3.5-5.1); Protein, Total 7.6 g/dL (6.4-8.2); Sodium Level 141 mmol/L (136-145); Triglycerides 112 mg/dL; Very Low Density Lipoprotein 22 mg/dL (5-40)
== END | disposition home or self-care (01) ==
LOC: LAB 17:11
PROVIDERS: PCP Family Medicine Geriatric Medicine; Visit Provider Family Medicine Geriatric Medicine
DX: I10 Essential (primary) hypertension (principal); E55.9 Vitamin D deficiency, unspecified
CPT/HCPCS: 36415; 80053; 80061; 82306; 84443; 85025

== ENCOUNTER → 2023-08-26 | Outpatient (CLI) | payer MEDICARE, SELFPAY ==
--- NOTE | 2023-08-26 12:54 | ECHOD_ITS ---
Reason For Study: ASHD/CAD Procedure This was a 2D Doppler, Color Flow transthoracic echocardiogram. Exam performed in department. Left Ventricle Normal LV size. Left ventricular systolic function is normal. The estimated ejection fraction is 60 %. Stage 1 diastolic dysfunction. No regional wall motion abnormalities noted. Right Ventricle Normal RV size. Normal systolic function. Atria Normal left atrium. Normal right atrium. Mitral Valve There is mild to moderate mitral annular calcification. Tricuspid Valve Normal tricuspid valve. Aortic Valve Trisinus/trileaflet aortic valve. Severe focal aortic valve calcification. Peak aortic valve gradient 89 mmHg. Mean aortic valve gradient 46 mmHg. Critical aortic stenosis. Pulmonic Valve Normal pulmonic valve. Great Vessels Normal aortic root. The pulmonary artery is normal size. Normal inferior vena cava. Pericardium/Pleural No pericardial effusion. MMode/2D Measurements & Calculations LVIDd: 4.7 cm IVSd: 1.0 cm LVOT diam: 1.7 cm LVIDs: 2.3 cm LVPWd: 0.90 cm LVOT area: 2.3 cm2 RVDd: 3.1 cm FS: 50.8 % LAV(MOD-bp): 51.5 ml LA A4 area: 20.1 cm2 RA A4 area: 14.4 cm2 LAV(MOD-bp) Indexed: 28.5 ml/m2 LAV(MOD-sp2): 44.6 ml LAV(MOD-sp4): 58.3 ml TAPSE: 1.9 cm Time Measurements MV dec time: 0.37 sec Doppler Measurements & Calculations MV E max bari: 68.0 cm/sec Lat Peak E' Bari: 7.3 cm/sec Med Peak E' Bari: 5.8 cm/sec MV A max bari: 106.5 cm/sec E/E' lat: 9.3 E/E' med: 11.7 MV E/A: 0.64 MV V2 max: 121.4 cm/sec MV P1/2t max bari: 80.6 cm/sec Ao V2 max: 471.7 cm/sec MV max P.9 mmHg MV P1/2t: 131.8 msec Ao max P.1 mmHg MV V2 mean: 59.4 cm/sec Ao V2 mean: 311.2 cm/sec MV mean P.7 mmHg MV dec slope: 179.2 cm/sec2 Ao mean P.3 mmHg MV V2 VTI: 41.0 cm MVA(P1/2t): 1.7 cm2 Ao V2 VTI: 108.8 cm AV (velocity ratio): 0.20 MVA(VTI): 1.2 cm2 EFFIE(I,D): 0.46 cm2 EFFIE(V,D): 0.48 cm2 LV V1 max: 99.9 cm/sec SV(LVOT): 50.2 ml PA V2 max: 94.9 cm/sec LV V1 max P.0 mmHg LV V1 mean P.3 mmHg LV V1 mean: 72.1 cm/sec LV V1 VTI: 22.1 cm ECHO/Echo Complete Interpretation Summary Normal LV size. Left ventricular systolic function is normal. The estimated ejection fraction is 60 %. Stage 1 diastolic dysfunction. Severe focal aortic valve calcification. Mean aortic valve gradient 46 mmHg. Critical aortic stenosis. Ordering Physician: Eliana Whipple Referring Physician: Eh Huddleston Chi Performed By: José Manuel Camarena RCS
== END | disposition home or self-care (01) ==
PROVIDERS: PCP Family Medicine Geriatric Medicine; Referring Provider Physician Assistant Medical; Visit Provider Physician Assistant Medical
DX: I25.10 Atherosclerotic heart disease of native coronary artery without angina pectoris (principal); I35.0 Nonrheumatic aortic (valve) stenosis
CPT/HCPCS: 93306

== ENCOUNTER → 2023-09-30 | Outpatient (CLI) | payer MEDICARE, SELFPAY ==
[2023-09-30 17:35] LABS: Absolute Lymphocyte Count 1.61 X10^3/uL (0.83-4.51); Absolute Neutrophil Count 5.3 X10^3/uL (2.0-7.7); Basophil# 0.03 X10^3/uL; Basophil% 0.4 % (0-1); Eosinophil# 0.06 X10^3/uL; Eosinophils% 0.8 % (0-5); Hematocrit 40.2 % (37-47); Hemoglobin 13.1 g/dL (12.0-15.0); Lymphocyte # 1.61 X10^3/ul (0.83-4.51); Lymphocyte % 21.6 % (19-41); Mean Corp Hgb Conc 32.6 g/dL (32-36); Mean Corpuscular Hgb 30.8 pg (27.0-32.0); Mean Corpuscular Volume 94.4 fL (81-99); Mean Platelet Vol. 11.2 fl (6.2-12.0); Monocyte# 0.48 X10^3/uL; Monocyte% 6.4 % (0-10); NRBC Flagged by Analyzer 0 % (0-5); Neutrophil # 5.27 X10^3/uL (2.7-7.7); Neutrophil % 70.5 % (47-70); Platelet Count 188 K/mm3 (150-450); RBC Distribution Width CV 12.8 % (11.6-14.6); RBC Distribution Width SD 44.5 fl (35.1-43.9); Red Blood Count 4.26 M/mm3 (4.2-5.4); White Blood Count 7.5 K/mm3 (4.4-11.0)
[2023-09-30 17:49] LABS: Vitamin D,25 Hydroxy 25.4 ng/mL
[2023-09-30 17:58] LABS: AST(SGOT) 48 U/L (15-37); Alanine Aminotransfer ALT/SGPT 22 U/L (13-56); Albumin, Serum 3.9 g/dL (3.2-5.0); Alkaline Phosphatase 71 U/L (45-117); Anion Gap 7 (5-15); BUN 17 mg/dL (7-18); BUN/Creat Ratio 19.1 RATIO (10-20); Calcium,Total 9.3 mg/dL (8.5-10.1); Chloride 107 mmol/L (98-107); Cholesterol 164 mg/dL (200); Creatinine, Serum 0.89 mg/dL (0.55-1.02); EST Glomerular Filtration Rate 64 mL/min (>60); Est Glom Filt Rate - Afr Amer 77 mL/min (>60); Globulin 3.8 g/dL (2.2-4.2); Glucose 117 mg/dL (74-106); High Density Lipoprotein 84 mg/dL; Protein, Total 7.7 g/dL (6.4-8.2); Sodium Level 139 mmol/L (136-145); Thyroid Stim Hormone (TSH) 1.37 uIU/mL (0.358-3.74); Triglycerides 123 mg/dL; Very Low Density Lipoprotein 25 mg/dL (5-40)
== END | disposition home or self-care (01) ==
LOC: POLAB3 14:53
PROVIDERS: PCP Family Medicine Geriatric Medicine; Visit Provider Family Medicine Geriatric Medicine
DX: I10 Essential (primary) hypertension (principal); E55.9 Vitamin D deficiency, unspecified; E78.5 Hyperlipidemia, unspecified
CPT/HCPCS: 36415; 80053; 80061; 82306; 84443; 85025

== ENCOUNTER → 2024-03-30 | Outpatient (CLI) | payer MEDICARE, SELFPAY ==
[2024-03-30 14:55] LABS: Absolute Lymphocyte Count 1.57 X10^3/uL (0.83-4.51); Absolute Neutrophil Count 4.4 X10^3/uL (2.0-7.7); Basophil# 0.06 X10^3/uL; Basophil% 0.8 % (0-1); Eosinophil# 1.35 X10^3/uL; Eosinophils% 16.9 % (0-5); Hematocrit 39.8 % (37-47); Lymphocyte # 1.57 X10^3/ul (0.83-4.51); Lymphocyte % 19.7 % (19-41); Mean Corp Hgb Conc 32.7 g/dL (32-36); Mean Corpuscular Hgb 30.7 pg (27.0-32.0); Mean Corpuscular Volume 93.9 fL (81-99); Mean Platelet Vol. 10.7 fl (6.2-12.0); Monocyte# 0.58 X10^3/uL; Monocyte% 7.3 % (0-10); NRBC Flagged by Analyzer 0 % (0-5); Neutrophil % 55.2 % (47-70); Platelet Count 199 K/mm3 (150-450); RBC Distribution Width CV 13.1 % (11.6-14.6); Red Blood Count 4.24 M/mm3 (4.2-5.4)
[2024-03-30 15:21] LABS: Vitamin D,25 Hydroxy 27.8 ng/mL
[2024-03-30 15:32] LABS: ALB/GLOB Ratio 0.9 RATIO (0.9-2.4); AST(SGOT) 51 U/L (15-37); Alanine Aminotransfer ALT/SGPT 15 U/L (13-56); Albumin, Serum 3.8 g/dL (3.2-5.0); Alkaline Phosphatase 76 U/L (45-117); Anion Gap 6 (5-15); BUN 16 mg/dL (7-18); BUN/Creat Ratio 18.6 RATIO (10-20); Calcium,Total 9.5 mg/dL (8.5-10.1); Chloride 106 mmol/L (98-107); Cholesterol 159 mg/dL (200); Creatinine, Serum 0.86 mg/dL (0.55-1.02); EST Glomerular Filtration Rate 67 mL/min (>60); Est Glom Filt Rate - Afr Amer 81 mL/min (>60); Globulin 4.2 g/dL (2.2-4.2); Glucose 106 mg/dL (74-106); High Density Lipoprotein 86 mg/dL; Potassium 4.7 mmol/L (3.5-5.1); Sodium Level 135 mmol/L (136-145); Thyroid Stim Hormone (TSH) 2.04 uIU/mL (0.358-3.74); Triglycerides 59 mg/dL; Very Low Density Lipoprotein 12 mg/dL (5-40)
== END | disposition home or self-care (01) ==
LOC: LAB 14:11
PROVIDERS: PCP Family Medicine Geriatric Medicine; Referring Provider Family Medicine Geriatric Medicine; Visit Provider Family Medicine Geriatric Medicine
DX: I10 Essential (primary) hypertension (principal); E55.9 Vitamin D deficiency, unspecified; E78.5 Hyperlipidemia, unspecified
CPT/HCPCS: 36415; 80053; 80061; 82306; 84443; 85025

== ENCOUNTER → 2024-10-01 | Outpatient (CLI) | payer MEDICARE, SELFPAY ==
[2024-10-01 13:49] LABS: Absolute Lymphocyte Count 1.61 X10^3/uL (0.83-4.51); Absolute Neutrophil Count 4.2 X10^3/uL (2.0-7.7); Basophil# 0.03 X10^3/uL; Basophil% 0.5 % (0-1); Eosinophil# 0.13 X10^3/uL; Hematocrit 38.6 % (37-47); Hemoglobin 12.6 g/dL (12.0-15.0); Lymphocyte # 1.61 X10^3/ul (0.83-4.51); Mean Corp Hgb Conc 32.6 g/dL (32-36); Mean Corpuscular Hgb 30.9 pg (27.0-32.0); Mean Corpuscular Volume 94.6 fL (81-99); Mean Platelet Vol. 10.6 fl (6.2-12.0); Monocyte# 0.44 X10^3/uL; Monocyte% 6.8 % (0-10); NRBC Flagged by Analyzer 0 % (0-5); Neutrophil # 4.21 X10^3/uL (2.7-7.7); Neutrophil % 65.5 % (47-70); Platelet Count 187 K/mm3 (150-450); RBC Distribution Width CV 13.2 % (11.6-14.6); RBC Distribution Width SD 46.2 fl (35.1-43.9); Red Blood Count 4.08 M/mm3 (4.2-5.4); White Blood Count 6.4 K/mm3 (4.4-11.0)
[2024-10-01 14:23] LABS: Vitamin D,25 Hydroxy 22.4 ng/mL
[2024-10-01 14:29] LABS: AST(SGOT) 44 U/L (15-37); Alanine Aminotransfer ALT/SGPT 15 U/L (13-56); Albumin, Serum 3.8 g/dL (3.2-5.0); Alkaline Phosphatase 67 U/L (45-117); Anion Gap 4 (5-15); BUN 20 mg/dL (7-18); BUN/Creat Ratio 22.1 RATIO (10-20); Calcium,Total 9.4 mg/dL (8.5-10.1); Chloride 108 mmol/L (98-107); Cholesterol 169 mg/dL (200); EST Glomerular Filtration Rate 63 mL/min (>60); Est Glom Filt Rate - Afr Amer 76 mL/min (>60); Globulin 3.7 g/dL (2.2-4.2); Glucose 103 mg/dL (74-106); High Density Lipoprotein 91 mg/dL; Potassium 4.4 mmol/L (3.5-5.1); Protein, Total 7.5 g/dL (6.4-8.2); Sodium Level 139 mmol/L (136-145); Triglycerides 87 mg/dL; Very Low Density Lipoprotein 17 mg/dL (5-40)
== END | disposition home or self-care (01) ==
LOC: POLAB3 13:28
PROVIDERS: PCP Family Medicine Geriatric Medicine; Visit Provider Family Medicine Geriatric Medicine
DX: I10 Essential (primary) hypertension (principal); E55.9 Vitamin D deficiency, unspecified; E78.5 Hyperlipidemia, unspecified
CPT/HCPCS: 36415; 80053; 80061; 82306; 84443; 85025

== ENCOUNTER → 2025-01-14 | Outpatient (CLI) | payer MEDICARE, SELFPAY ==
--- NOTE | 2025-01-14 10:09 | CR.HP_ITS ---
CR - History & Physical General Arrival date:: 01/14/25 Arrival time:: 10:09 Date of Referral:: 01/08/25 Date of CR Evaluation:: 01/14/25 Referring Physician: Dr. Odilon Wells Primary Diagnosis: S/P TAVR History of Present Cardiac Event Onset Date Heart valve replacement or repair:: Yes (10/30/24 onset) Medications Ambulatory Orders ?Medication ?Instructions ?Recorded brimonidine 0.2 % eye drops 2 drp EACH EYE BID glaucom a 11/25/17 dorzolamide 22.3 mg-timolol 6.8 1 drp EACH EYE BID gla ucoma 11/25/17 mg/mL eye drops aspirin 81 mg tablet,delayed 81 mg PO DAILY@0800 #30 t abs 11/28/17 release latanoprost 0.005 % eye drops 1 drp ophthalmic (eye) Q PM 12/17/19 valsartan 80 mg tablet 80 mg PO DAILY #90 tabs 02/26 atorvastatin 40 mg tablet 40 mg PO QHS #90 tabs carvedilol 12.5 mg tablet 12.5 mg PO BID #180 tabs 05/21 Allergies Allergies No Known Allergies Allergy (Verified 03/16/24 14:09) Sleep Disorder Evaluation Hx of Sleep Apnea: No Do you snore loudly (louder than talking or can be heard through closed doors)?: No Do you often feel tired/ fatigued/ sleepy during daytime?: No Has anyone observed you stop breathing during sleep?: No History of Hypertension (for STOP score): Yes STOP Results: Negative Advanced Directives Advanced Directives Do you have a Healthcare Power of Automatic Drill Operator?: Yes Living Will: Yes Advance Directives Information Provided: Yes Advance Directives on File: No DNR Order?:: No Past Medical History Covid-19 Screening Physicial Symptoms Other Clinical Concerns Exposure Risk Pertinent Comorbidities 65 years or older:: Yes Has a serious heart condition:: Yes Past Medical Illness Medical History Laceration of leg Closed head injury Abrasions of multiple sites Laceration of lip Pure hypercholesterolemia Nonrheumatic aortic (valve) stenosis Non-ST elevation (NSTEMI) myocardial infarction 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 Essential hypertension Seborrheic keratosis Generalized weakness Fall Past Surgical History Surgical History History of left heart catheterization (LHC) (~12/27/17) History of bilateral hip replacements Family History Summary Family History Father Diabetes Grandmother Colon cancer Social History Smoking History Smoking Status: Never smoker Alcohol Use Alcohol Usage: No Substance Abuse Hx Substance Use: No Occupation Occupation (List type of work in comments):: Retired Social Environment Status Marital Status: Current Living Arrangements Living Environment:: Alone Children How many children do you have?: 1 Do any of your children live nearby?: No Safety Do you feel safe in your surroundings?: Yes Assistance Do you need any assistance at home?: no Review of Systems Review of Systems Hints Review of Present Symptoms: Reports Appetite - Normal and Appetite - Special Diet; Denies Shortness of Breath at Rest, Shortness of Breath with Exertion, PVD, Operative Discomfort, Angina, Wound Healing, Dizziness/Lightheadedness, Fatigue, Heart Arrhythmia/Irregularities, Sleep - Normal or Sexual Changes Pain Is Patient Pain Free?: Yes Risk Factor Assessment Chief Complaint Chief Complaint: S/P TAVR Vital Signs Pulse Ox: 97 Blood Pressure: 128/53 Pulse Pulse Rate: 64 Hypertension Blood Pressure Sitting - Right Arm: 128/53 Obesity Height: 5 ft 5.5 in Weight:: 164 lb Weight in Pounds: 164.0 lbs Body Mass Index (BMI): 26.9 Nutritional Referral for Obesity: No Risk Stratification Risk Guidelines: Lowest Risk: Risk Factor for Smoking, Moderate Risk: Risk Factor for Diabetes, Risk Factor for Obesity, Risk Factor for Sedentary Lifestyle and Risk Factor for Depression and Highest Risk: Risk Factor for Dyslipidemia and Risk Factor for Hypertension For Smoking Smoking Risk Guidelines For Dyslipidemia Dyslipidemia Risk Guidelines For Diabetes Mellitus Diabetes Risk Guidelines For Obesity/Overweight Obesity/Overweight Risk Guidelines For Hypertension Hypertension Risk Guidelines For Sedentary Lifestyle Sedentary Lifestyle Risk Guidelines For Depression Depression Risk Guidelines Family History Family History Father Diabetes Grandmother Colon cancer Motivation Motivation to Participate On a scale of 1 to 10, how prepared are you to commit to attending program?: 10 What do you see as barriers to successfully being able to complete the program?: nothing What do you see as the benefits of succesfully completing the program? In other words, what do you hope to get out of participating in the program?: get stronger Are there issues you are dealing with that will interfere with completing the program?: no Do you have a spouse or signficant other, family or friends who will help [place] p[place] you to complete the program?: no
[2025-01-14 10:16] VITALS: BP 128/53; PULSE 64; O2SAT 97
--- NOTE | 2025-01-14 10:17 | CR.ITP_ITS ---
Diagnosis General Information Admitting Diagnosis: S/P TAVR Personal Learning Style:: Audio/Visual Barriers to Learning: No Barriers Stage of change r/t lifestyle modifications:: Contemplation Gave educational material for:: Treating Heart Disease, How The Heart Works, What it means to have Heart Disease, How Coronary Artery Disease is Diagnosed, Heart Procedures, What Heart Medications Do, Risk Factors & Modifications, Ruthann ng an Active Life, Nutrition, Emotions & Heart Disease, Stress Management & Relaxation and Sleep Disorders & Heart Disease Education/Goals Cardiac Rehabilitation Goals Personal Goals: Initial Assessment: Improve energy level, Participate in home exercise program, Improve muscle strength and endurance and Control risk factors (learn risk factor modification) Scale for measuring improvement of personal goals Diagnosis & Disease Process Outcomes/Goals: Pt IDs own risk factors & lifestyle modifications by Session 10, Verbalizes symptoms of angina & response by session 3., Pt independently manages and Other Additional Outcomes/Goals: Plan/Interventions: Assist Pt to ID & engage in lifestyle modification to reduce CVD risk, Instruct on individual risk factors, Review symptoms of angina & emergency actions, Review secondary diagnosis & identify educational needs. and Other see comment 30 day Reassessments:: Not Met 30 day Reassessments:: Not Met 30 day Reassessments:: Not Met 30 day Reassessments:: Not Met Final Reassessments:: Not Met Safety Referral to Physical Therapy: No Referral to [facility] Case Management: No Fall Risk Assessed:: Yes Assistive Devices:: None Exercise - Initial Assessment Visit Date of Eval: 01/14/25 (initial eval) Mets: Pre-: >5 METS for 30 minutes by discharge Physician Prescribed Exercise Modalities: Treadmill, [employer] AD-7, [employer] Stepper, [employer] Pro-II Ergometer and [employer] Lateral Web Consultant Frequency: 3x/week for 12 weeks [36 sessions] Intensity: 60-80% of age predicted maximum heart rate reserve Duration: 30 - 45 minutes Current METSs:: 3 Target Heart Rate:: 81-101 Resting Blood Pressure: 128/53 EKG Type: SR with 1st degree AV block Outcomes & Goals Goals:: Verbalizes understanding of THR, RPE & goal METS by session 6, Documents in home exercise log/reports 30 min aerobic 5 day/wk by DC, Demonstrates accurate pulse taking by DC and Other additional outcome/goals: see below Intervention & Plan Exercise Program Goals: Instruct on personal THR & RPE, Instruct on MET level & personal MET goal, Show patient to take own pulse /validate performance until accurate, Instruct on home exercise and Other additional plan/int Physical Activity Home Exercise Physical Activity - Home Exercise: Safe Exercise, Warm-up, Self-monitoring, Cool-Down, Home Exercise > 30 min Daily and Sitting Time <3 hours/daily Outcomes & Goals Outcomes/Goals: Demonstrates correct Warm-up/exercise Cool-Down (S3) if = 2.5 METs, Verbalizes symptoms of exercise intolerance by Session 3 (S3), Demonstrate safe equipment use (S3) & follows exercise prescrition (6) and Other: See below Intervention & Plan Plan/Intervention: Instruct warm-up & cool-down if exercising at > 2 METs, Instruct on symptoms of exercise intolerance & actions to take, Instruct & monitor on saf, Assess intial functional capacity & safety risk and Other See below Nutrition - Initial Assessment Program Goals Nutrition Program Goals Patient has diagnosis of Hyperlipidemia (ICD E78)?: Yes Visit Date of Eval: 01/14/25 (initial eval ) Cholesterol/Lipids (Other Core Measures) Determine presence & major risk factors that modify LDL goal: Hypertension or hypertensive medication, Low HDL cholesterol <40 mg/dL*, Family history of p remature CHD in Male < 55 years: female <65 yearsFa and Age men > 45 years; women >/= 55 years Outcomes/Goals: Pt IDs own risk factors & lifestyle modifications by Session 10, Verbalizes symptoms of angina & response by session 3., Pt independently manages and Other Additional Outcomes/Goals: Intervention/Plan: Advocate for lipid panel cholesterol medication if applicable, Instruct on personal lipid levels & lipid goals/NCEP guidelines, Instruct on cholesterol and Other additional plan/int Diabetes (Other Core Measures) Diabetes Type: Not Applicable Weight Mgt (Other Care) Height: 5 ft 5.5 in Weight:: 164 lb BMI: 26.9 Diagnosis Overweight/Obesity BMI> 30% ICD-10 E66: No Diagnosis High BMI/Morbid Obesity BMI> 35% ICD-10 Z68: No Outcomes/Goals: Pt sets, maintains & shows weight loss goal & trend during rehab and Other additional outcomes/goals Intervention/Plan: Instruct on ideal BMI & set weight loss goal w/patient, Assist pt to ID & incorporate diet changes for weight loss by S9, Refer to Structured Weight Loss program as appropriate, Encourage goal of using 250- 300dcal per session for weight loss and Other additional plan/interventions Healthy Eating Habits Will attend diet classes:: Yes Outcomes/Goals:: Consume diet rich in vegs,fruits,whole grain/high fiber,fish,lean meat, Limit sat/trans fats,cholesterol & added salts & sugars and Other additional outcome/goals: Intervention/Plan:: Assess current eating habits and Other Additional plan/interventions Education Gave educational materials for:: Signs & symptoms of hypoglycemia, Signs & s ymptoms of hyperglycemia, Relate diabetes to coronary artery disease and Healthy eating Core - Initial Assessment Visit Date of Eval: 01/14/25 (initial eval) Medication Compliance Preventative Medication(s):: Aspirin, Clopidogrel/P2Y12 inhibit, Statin/lipid and Beta madhu H/O mental health issues: depression, anxiety, or addiction?: No Doesn?t believe in the benefits of treatment?: No Believes medications are unnecessary or harmful?: No Has a concern about medication side effects?: No Expresses concern over the cost of medications?: No Outcomes/Goals: Verbalizes medications,desired effect & common side effects @ DC, Pt self-reports following medication regimen, Keeps card in wallet w/medications listed by DC and Other additional outcome/goals: Interventions/plans: Instruct on medication effects & side effects, Review medication list w/patient every two weeks, Instruct importance of taking meds as ordered & assist problem solving and Other additional Tobacco Use Tobacco Use: Non-smoker Hypertension Hypertension Diagnosis:: Hypertension ICD-10 I10 Resting Blood Pressure:: 128/53 [place] [employer] Hypertension Guidelines Outcomes/Goals: Able to verbalize/achieve optimal blood pressure <130/80, Incorporates diet changes & exercise for blood pressure control by DC and Other additional outcomes/goals Interventions/plan: Instruct on optimal blood pressure, hypertension & medications, Instruct on effects of sodium, alcohol, stress, exercise &hypertension and Other additional plan/interventions Tobacco Cessation Referral Smoking Cessation Referral:: No Individual Education/Counseling:: No Education Schedule Given:: Yes Psychosocial - Initial Assess VIsit Date of Eval: 01/14/25 (initial eval ) History of previous Mental disease:: No Target Goals Target Goals Psychosocial Test Tool Used:: PHQ-9 Questionnaire phq-9 Severity Referral to Behavioral Health PS - Interventions: Yes: Attend Stress Management Classes Outcomes/Goals: See list Psychosocial Outcomes/Goals:: ID's personal stressors & 2 strategies to manage stress by discharge and Other Additional outcome/goals: Intervention/Plan: See List Interventions/Plan:: Assess stressors,coping strategies & signs of derpression on admission, Instruct/assist pt to develop coping & personal stress Mgt strategies, Refer to Behavioral Health if appropriate, Refer to Physician if appropriate, Instruct patient to recognize signs & symptoms of depression, Instruct patient to recog and Other additional plan/intervention Patient Health Questionnaire PHQ-9 Screening Initial Assessment: 1. Little interest or pleasure in doing things: Nearly every day 2. Feeling down, depressed, or hopeless: More than half the days 3. Trouble falling or staying asleep, or sleeping too much: Nearly every day 4. Feeling tired or having little energy: Nearly every day 5. Poor appetite or overeating: Not at all 6. Feeling bad about yourself -- or that you are a failure or have let yourself or your family down: Not at all 7. Trouble concentrating on things, such as reading the newspaper or watching television: Not at all 8. Moving or speaking so slowly that other people could have noticed. Or the opposite - being so fidgety or restless that you have been moving around a lot more than usual: Not at all 9. Thoughts that you would be better off , or of hurting yourself in some way: Not at all How difficult have these problems made it for you to do your work, take care of things at home, or get along with other people?: Not difficult at all Total Score: 11 FLOWER-Q SV Test Statements CAD is a disease of the arteries in the heart: False Examples of risk factors for heart disease: True Angina is chest pain or discomfort: I Don't Know The benefits of resistance training include: True Eating more meat and dairy products: False Anti-platelet medications such as aspirin are important: True The only effective way to manage stress: False An exercise warm-up slowly increases heart rate: True Prepared, processed foods usually have high sodium: True Depression is common after a heart attack: True The statin medications lower cholesterol: True To control blood pressure, lower the amount of sodium: True If someone gets chest discomfort during walking: False Transfats are partially hydrogenated vegetable oils: True Sleep apnea that is not treated increases the risk: I Don't Know To control cholesterol, one should become a vegetarian: False Someone knows if he/she is exercising at the right level: True Diabetes cannot be prevented with exercise & health eating: True Stress is a large risk for heart attack: True A diet that can help lower blood pressure is rich in: True Total Score Total Correct Responses: 17 Self-Efficacy 6-Item Scale Initial Assessment: We would like to know how confident you are in doing certain activities. Please select your confidence level for: Fatigue Select Number: 10 Physical Discomfort or Pain Select Number: 10 Emotional Distress Other Symptoms or Health Problems Different Tasks and Activities Medication Select Number: 10 Nutrition Survey Nutrition Survey Instructions Scoring Instructions Nutrition Survey Initial: Have you lost >10 lbs over the past 2 months without trying?: No Are you following a special diet at home for diabetes, low fat, or low salt?: No Are you interested in meeting with a dietitian for help understanding your diet?: No Do you eat less than 3 meals a day?: Yes Do you eat fatty meats (khan, sausage, ribs, etc), fried foods, desserts, large amounts of salad dressings, margarine, butter, or cheese most days?: No Do you have food allergies? [Enter types in comment field]: No Do you eat in restaurants more than 3 times a week?: Yes Do you season food with salt, seasoning salt, or garlic salt?: No Do you used canned, boxed, frozen meals, or soups, seasoning packets?: No Total Score:: 2 Exercise - 30-day Assessment Physician Prescribed Exercise Modalities: Treadmill, [employer] Aird[employer] AD-7, SciFit Stepper, SciFit Pro-II Ergometer and Sci[employer] Lateral Web Consultant Exercise - 60-day Assessment Physician Prescribed Exercise Modalities: Treadmill, [employer] AD-7, SciFit Stepper, SciFit Pro-II Ergometer and SciFit Lateral Web Consultant Exercise - 90-day Assessment Physician Prescribed Exercise Modalities: Treadmill, [employer] AD-7, SciFit Stepper, SciFit Pro-II Ergometer and SciFit Lateral Disney Exercise - Final/Discharge Physician Prescribed Exercise Modalities: Treadmill, [employer] Airdyne AD-7, SciFit Stepper, SciFit Pro-II Ergometer and SciFit Lateral [place] Frequency: 3x/week for 12 weeks [36 sessions] Intensity: 60-80% of age predicted maximum heart rate reserve Current METSs:: 3 Target Heart Rate:: 81-101 Nutrition - 30-Day Assessment Weight Mgt (Other Care) Height: 5 ft 5.5 in Weight:: 164 lb BMI: 26.9 Nutrition - 60-Day Assessment Weight Mgt (Other Care) Height: 5 ft 5.5 in Weight:: 164 lb BMI: 26.9 Core - Final Assessment Hypertension Resting Blood Pressure:: 128/53 [place] [employer] Hypertension Guidelines Core - 60-Day Assessment Hypertension Resting Blood Pressure:: 128/53 [place] [employer] Hypertension Guidelines Psychosocial - 30-Day Assess Target Goals Target Goals Referral to Behavioral Health PS - Interventions: Yes: Attend Stress Management Classes Psychosocial - 60-Day Assess Target Goals Target Goals Referral to Behavioral Health PS - Interventions: Yes: Attend Stress Management Classes Psychosocial - 90-Day Assess Target Goals Target Goals Referral to Behavioral Health PS - Interventions: Yes: Attend Stress Management Classes Psychosocial - Final Assessmen Target Goals Target Goals Referral to Behavioral Health PS - Interventions: Yes: Attend Stress Management Classes Nutrition - 90-Day Assessment Weight Mgt (Other Care) Height: 5 ft 5.5 in Weight:: 164 lb BMI: 26.9 Nutrition - Final Assessment Program Goals Patient has diagnosis of Hyperlipidemia (ICD E78)?: Yes Weight Mgt (Other Care) Height: 5 ft 5.5 in Weight:: 164 lb BMI: 26.9
[2025-01-14 10:33] VITALS: BP 128/53
[2025-01-14 10:38] VITALS: BMI 26.9
[2025-01-14 11:06] VITALS: BMI 26.9
== END | disposition home or self-care (01) ==
PROVIDERS: PCP Family Medicine Geriatric Medicine
DX: Z95.2 Presence of prosthetic heart valve (principal)

== ENCOUNTER 2025-01-25 13:00 | Outpatient (RCR) | payer MEDICARE, SELFPAY ==
[2025-01-14 11:06] VITALS: BMI 26.9
== END 2025-01-25 23:59 ==
LOC: CR 13:00
PROVIDERS: PCP Family Medicine Geriatric Medicine
DX: Z95.2 Presence of prosthetic heart valve (principal)
CPT/HCPCS: 93798

== ENCOUNTER 2025-02-24 13:00 | Outpatient (RCR) | payer MEDICARE, SELFPAY ==
[2025-01-14 11:06] VITALS: BMI 26.9
--- NOTE | 2025-02-10 11:26 | CR.ITP_ITS ---
Exercise - Initial Assessment Visit Session #:: 9 Physician Prescribed Exercise Modalities: SciFit Stepper and SciFit Pro-II Ergometer Nutrition - Initial Assessment Weight Mgt (Other Care) Height: 5 ft 5.5 in Weight:: 170 lb 8 oz BMI: 27.9 Psychosocial - Initial Assess Target Goals Target Goals Referral to Behavioral Health PS - Interventions: Yes: Attend Stress Management Classes Patient Health Questionnaire PHQ-9 Screening 30-Day Re-eval Assessment: 1. Little interest or pleasure in doing things: Nearly every day 2. Feeling down, depressed, or hopeless: More than half the days 3. Trouble falling or staying asleep, or sleeping too much: Nearly every day 4. Feeling tired or having little energy: Nearly every day 5. Poor appetite or overeating: Not at all 6. Feeling bad about yourself -- or that you are a failure or have let yourself or your family down: Not at all 7. Trouble concentrating on things, such as reading the newspaper or watching television: Not at all 8. Moving or speaking so slowly that other people could have noticed. Or t he opposite - being so fidgety or restless that you have been moving around a lot more than usual: Not at all 9. Thoughts that you would be better off , or of hurting yourself in some way: Not at all How difficult have these problems made it for you to do your work, take care of things at home, or get along with other people?: Not difficult at all Total Score: 11 Self-Efficacy 6-Item Scale 30-Day Re-eval Assessment: We would like to know how confident you are in doing certain activities. Please select your confidence level for: Fatigue Select Number: 10 Physical Discomfort or Pain Select Number: 10 Emotional Distress Select Number: 10 Other Symptoms or Health Problems Select Number: 10 Different Tasks and Activities Select Number: 10 Medication Select Number: 10 Total Score:: 10 Nutrition Survey Nutrition Survey Instructions Scoring Instructions Exercise - 30-day Assessment Visit Date of Eval: 02/10/25 Session #:: 9 Physician Prescribed Exercise Modalities: SciFit Stepper and SciFit Pro-II Ergometer Frequency: 3x/week for 12 weeks [36 sessions] Intensity: 60-80% of age predicted maximum heart rate reserve Duration: 30 - 45 minutes Current METSs:: 3.4 Target Heart Rate:: 81-101 Current RPE:: 11-13 Maximum Excercise HR:: 89 Resting Blood Pressure: 148/82 Maximum Exercise Blood Pressure: 140/70 EKG Type: NSR w/1st degree AV block w/ occas PAC,PVC Outcomes & Goals Goals:: Verbalizes understanding of THR, RPE & goal METS by session 6, Documents in home exercise log/reports 30 min aerobic 5 day/wk by DC, Demonstrates accurate pulse taking by DC and Other additional outcome/goals: see below Intervention & Plan Exercise Program Goals: Instruct on personal THR & RPE, Instruct on MET level & personal MET goal, Show patient to take own pulse /validate performance until accurate, Instruct on home exercise and Other additional plan/int Physical Activity Home Exercise Physical Activity - Home Exercise: Safe Exercise, Warm-up, Self-monitoring, Cool-Down, Home Exercise > 30 min Daily and Sitting Time <3 hours/daily Outcomes & Goals Outcomes/Goals: Demonstrates correct Warm-up/exercise Cool-Down (S3) if = 2.5 METs, Verbalizes symptoms of exercise intolerance by Session 3 (S3), Demonstrate safe equipment use (S3) & follows exercise prescrition (6) and Other: See below Intervention & Plan Plan/Intervention: Instruct warm-up & cool-down if exercising at > 2 METs, Instruct on symptoms of exercise intolerance & actions to take, Instruct & monitor on saf, Assess intial functional capacity & safety risk and Other See below 30-day Reassessments 30 day Reassessments:: Progressing Reassessment Notes & Comments:: RPE explained to pt. Pt demonstrates understanding in her daily sessions. Exercise - 60-day Assessment Physician Prescribed Exercise Modalities: SciFit Stepper and SciFit Pro-II Ergometer Exercise - 90-day Assessment Physician Prescribed Exercise Modalities: SciFit Stepper and SciFit Pro-II Ergometer Exercise - Final/Discharge Physician Prescribed Exercise Modalities: SciFit Stepper and SciFit Pro-II Ergometer Nutrition - 30-Day Assessment Program Goals Nutrition Program Goals Patient has diagnosis of Hyperlipidemia (ICD E78)?: Yes Visit Date of Eval: 02/10/25 Session #:: 9 Cholesterol/Lipids (Other Core Measures) Determine presence & major risk factors that modify LDL goal: Hypertension or hypertensive medication, Low HDL cholesterol <40 mg/dL*, Family history of premature CHD in Male < 55 years: female <65 yearsFa and Age men > 45 years; women >/= 55 years Outcomes/Goals: Pt IDs own risk factors & lifestyle modifications by Session 10, Verbalizes symptoms of angina & response by session 3., Pt independently manages and Other Additional Outcomes/Goals: Intervention/Plan: Advocate for lipid panel cholesterol medication if applicable, Instruct on personal lipid levels & lipid goals/NCEP guidelines, Instruct on cholesterol and Other additional plan/int Diabetes (Other Core Measures) Diabetes Type: Not Applicable Weight Mgt (Other Care) Height: 5 ft 5.5 in Weight:: 170 lb 8 oz BMI: 27.9 Diagnosis Overweight/Obesity BMI> 30% ICD-10 E66: No Diagnosis High BMI/Morbid Obesity BMI> 35% ICD-10 Z68: No Outcomes/Goals: Pt sets, maintains & shows weight loss goal & trend during rehab and Other additional outcomes/goals Intervention/Plan: Instruct on ideal BMI & set weight loss goal w/patient, Assist pt to ID & incorporate diet changes for weight loss by S9, Refer to Structured Weight Loss program as appropriate, Encourage goal of using 250- 300dcal per session for weight loss and Other additional plan/interventions Healthy Eating Habits Will attend diet classes:: Yes Outcomes/Goals:: Consume diet rich in vegs,fruits,whole grain/high fiber,fish,lean meat, Limit sat/trans fats,cholesterol & added salts & sugars and Other additional outcome/goals: Intervention/Plan:: Assess current eating habits and Other Additional plan/interventions 30-day Reassessments:: Progressing Reassessment Notes & Comments:: Pt will attend nutrition class. Heart healthy low sodium diet encouraged. Education Gave educational materials for:: Signs & symptoms of hypoglycemia, Signs & symptoms of hyperglycemia, Relate diabetes to coronary artery disease and Healthy eating Nutrition - 60-Day Assessment Weight Mgt (Other Care) Height: 5 ft 5.5 in Weight:: 170 lb 8 oz BMI: 27.9 Core - 30-Day Assessment Visit Date of Eval: 02/10/25 Session #:: 9 Medication Compliance Preventative Medication(s):: Aspirin, Clopidogrel/P2Y12 inhibit, Statin/lipid and Beta madhu H/O mental health issues: depression, anxiety, or addiction?: No Doesn?t believe in the benefits of treatment?: No Believes medications are unnecessary or harmful?: No Has a concern about medication side effects?: No Expresses concern over the cost of medications?: No Outcomes/Goals: Verbalizes medications,desired effect & common side effects @ DC, Pt self-reports following medication regimen, Keeps card in wallet w/medications listed by DC and Other additional outcome/goals: Interventions/plans: Instruct on medication effects & side effects, Review med ication list w/patient every two weeks, Instruct importance of taking meds as ordered & assist problem solving and Other additional Tobacco Use Tobacco Use: Non-smoker Hypertension Hypertension Diagnosis:: Hypertension ICD-10 I10 Resting Blood Pressure:: 148/82 [place] [employer] Hypertension Guidelines Peak Exercise Blood Pressure:: 140/70 Outcomes/Goals: Able to verbalize/achieve optimal blood pressure <130/80, Incorporates diet changes & exercise for blood pressure control by DC and Other additional outcomes/goals Interventions/plan: Instruct on optimal blood pressure, hypertension & medications, Instruct on effects of sodium, alcohol, stress, exercise &hypertension and Other additional plan/interventions 30 day Reassessments:: Progressing Reassessment Notes & Comments:: Pt's BP's have been elevated. Will continue to monitor and send report to pt's physician if no improvement is seen. Tobacco Cessation Referral Smoking Cessation Referral:: No Individual Education/Counseling:: No Education Schedule Given:: Yes Psychosocial - 30-Day Assess VIsit Date of Eval: 02/10/25 Session #:: 9 History of previous Mental disease:: No Target Goals Target Goals Psychosocial Test Tool Used:: [employer] QOL Cardiac and PHQ-9 Questionnaire phq-9 Severity See PHQ-9 Score: 11 Referral to Behavioral Health PS - Interventions: Yes: Attend Stress Management Classes Outcomes/Goals: See list Psychosocial Outcomes/Goals:: ID's personal stressors & 2 strategies to manage stress by discharge and Other Additional outcome/goals: Intervention/Plan: See List Interventions/Plan:: Assess stressors,coping strategies & signs of derpression on admission, Instruct/assist pt to develop coping & personal stress Mgt strategies, Refer to Behavioral Health if appropriate, Refer to Physician if appropriate, Instruct patient to recognize signs & symptoms of depression, Instruct patient to recog and Other additional plan/intervention 30-day Reassessments: 30 day Reassessments:: Progressing Reassessment Notes & Comments:: Pt will attend stress management class. Psychosocial - 60-Day Assess Target Goals Target Goals Referral to Behavioral Health PS - Interventions: Yes: Attend Stress Management Classes Outcomes/Goals: See list Psychosocial Outcomes/Goals:: ID's personal stressors & 2 strategies to manage stress by discharge and Other Additional outcome/goals: Psychosocial - 90-Day Assess Target Goals Target Goals Referral to Behavioral Health PS - Interventions: Yes: Attend Stress Management Classes Psychosocial - Final Assessmen Target Goals Target Goals Referral to Behavioral Health PS - Interventions: Yes: Attend Stress Management Classes Nutrition - 90-Day Assessment Weight Mgt (Other Care) Height: 5 ft 5.5 in Weight:: 170 lb 8 oz BMI: 27.9 Nutrition - Final Assessment Weight Mgt (Other Care) Height: 5 ft 5.5 in Weight:: 170 lb 8 oz BMI: 27.9
[2025-02-10 11:37] VITALS: BP 148/82; BMI 27.9
== END 2025-02-24 23:59 ==
LOC: CR 13:00
PROVIDERS: PCP Family Medicine Geriatric Medicine
DX: Z95.2 Presence of prosthetic heart valve (principal)
CPT/HCPCS: 93798

== ENCOUNTER 2025-03-24 13:00 | Outpatient (RCR) | payer MEDICARE, SELFPAY ==
[2025-02-10 11:37] VITALS: BMI 27.9
[2025-02-25 00:20] VITALS: BP 148/82
--- NOTE | 2025-03-11 09:57 | CR.ITP_ITS ---
Exercise - Initial Assessment Physician Prescribed Exercise Modalities: Treadmill, Rower, Schwinn Airdyne AD-7, SciFit Stepper, SciFit Pro- II Ergometer and SciFit Lateral Gum Machine Operator Nutrition - Initial Assessment Weight Mgt (Other Care) Height: 5 ft 5.5 in Weight:: 171 lb BMI: 28.0 BMI (Report if calculated above): 28 Core - Initial Assessment Hypertension Resting Blood Pressure:: 132/70 [place] [employer] Hypertension Guidelines Psychosocial - Initial Assess Target Goals Target Goals Referral to Behavioral Health PS - Interventions: Yes: Referral to Behavioral Health if PHQ-9 score >9: (provided list of local mental health resources) and Yes: Attend Stress Management Classes and No: Referral to [facility] and No: Referral to Physician if PHQ-9 if score is 5-9: Patient Health Questionnaire PHQ-9 Screening 60-Day Re-eval Assessment: 1. Little interest or pleasure in doing things: Nearly every day 2. Feeling down, depressed, or hopeless: More than half the days 3. Trouble falling or staying asleep, or sleeping too much: Nearly every day 4. Feeling tired or having little energy: Nearly every day 5. Poor appetite or overeating: Not at all 6. Feeling bad about yourself -- or that you are a failure or have let yourself or your family down: Not at all 7. Trouble concentrating on things, such as reading the newspaper or watching television: Not at all 8. Moving or speaking so slowly that other people could have noticed. Or the opposite - being so fidgety or restless that you have been moving around a lot more than usual: Not at all 9. Thoughts that you would be better off , or of hurting yourself in some way: Not at all How difficult have these problems made it for you to do your work, take care of things at home, or get along with other people?: Not difficult at all Total Score: 11 Self-Efficacy 6-Item Scale 60-Day Re-eval Assessment: We would like to know how confident you are in doing certain activities. Please select your confidence level for: Fatigue Select Number: 10 Physical Discomfort or Pain Select Number: 10 Emotional Distress Select Number: 10 Other Symptoms or Health Problems Select Number: 10 Different Tasks and Activities Select Number: 10 Medication Select Number: 10 Total Score:: 10 Nutrition Survey Nutrition Survey Instructions Scoring Instructions Exercise - 30-day Assessment Physician Prescribed Exercise Modalities: Treadmill, Rower, Schwinn Airdyne AD-7, SciFit Stepper, SciFit Pro- II Ergometer and SciFit Lateral Gum Machine Operator Exercise - 60-day Assessment Visit Date of Eval: 03/11/25 Session #:: 20 Physician Prescribed Exercise Modalities: Treadmill, Rower, Schwinn Airdyne AD-7, SciFit Stepper, SciFit Pro- II Ergometer and SciFit Lateral Gum Machine Operator Frequency: 3x/week for 12 weeks [36 sessions] Intensity: 60-80% of age predicted maximum heart rate reserve Duration: 30 - 45 minutes METs - Progression 0.5-1.0 weekly:: 0.5-1.0 Current METSs:: 4.1 Target Heart Rate:: 81-101 Target RPE 11-14 Current RPE:: 11-14 Current RPE:: 12 Maximum Excercise HR:: 97 Resting Blood Pressure: 138/80 Maximum Exercise Blood Pressure: 128/78 EKG Type: NSR to ST with incomplete BBB with rare PAC/PVC Current Physical Activity or Exercising minutes: 31 Outcomes & Goals Goals:: Verbalizes understanding of THR, RPE & goal METS by session 6, Documents in home exercise log/reports 30 min aerobic 5 day/wk by DC and Demonstrates accurate pulse taking by DC Intervention & Plan Exercise Program Goals: Instruct on personal THR & RPE, Instruct on MET level & personal MET goal, Show patient to take own pulse /validate performance until accurate and Instruct on home exercise 30-day Reassessments 30 day Reassessments:: Progressing Reassessment Notes & Comments:: Pt able to demonstrate correct pulse taking, pt able to progress MET level Physical Activity Home Exercise Physical Activity - Home Exercise: Safe Exercise, Warm-up, Self-monitoring, Cool-Down, Home Exercise > 30 min Daily and Sitting Time <3 hours/daily Outcomes & Goals Outcomes/Goals: Demonstrates correct Warm-up/exercise Cool-Down (S3) if = 2.5 METs, Verbalizes symptoms of exercise intolerance by Session 3 (S3) and Demonstrate safe equipment use (S3) & follows exercise prescrition (6) Intervention & Plan Plan/Intervention: Instruct warm-up & cool-down if exercising at > 2 METs, Instruct on symptoms of exercise intolerance & actions to take, Instruct & monitor on saf and Assess intial functional capacity & safety risk 30-day Reassessments 30 day Reassessments:: Progressing Reassessment Notes & Comments:: PT warms up and cools down appropriately with minimal prompting, pt shows increased functional capacity and understands safety risks Exercise - 90-day Assessment Physician Prescribed Exercise Modalities: Treadmill, Rower, Schwinn Airdyne AD-7, SciFit Stepper, SciFit Pro- II Ergometer and SciFit Lateral [place] Exercise - Final/Discharge Physician Prescribed Exercise Modalities: Treadmill, Rower, Schwinn Airdyne AD-7, SciFit Stepper, SciFit Pro- II Ergometer and SciFit Lateral Gum Machine Operator Nutrition - 30-Day Assessment Weight Mgt (Other Care) Height: 5 ft 5.5 in Weight:: 171 lb BMI: 28.0 BMI (Report if calculated above): 28 Nutrition - 60-Day Assessment Program Goals Nutrition Program Goals Patient has diagnosis of Hyperlipidemia (ICD E78)?: Yes Visit Date of Eval: 03/11/25 Session #:: 20 Cholesterol/Lipids (Other Core Measures) Total Triglycerides (mg/dL): 87 Total Cholesterol: 169 LDL Cholesterol (mg/dL): 61 HDL Cholesterol (mg/dL): 91 Lipid Medication: atorvastatin 40mg QHS Determine presence & major risk factors that modify LDL goal: Hypertension or hypertensive medication and Age men > 45 years; women >/= 55 years Outcomes/Goals: Pt IDs own risk factors & lifestyle modifications by Session 10, Verbalizes symptoms of angina & response by session 3. and Pt independently manages Intervention/Plan: Advocate for lipid panel cholesterol medication if papi licable, Instruct on personal lipid levels & lipid goals/NCEP guidelines and Instruct on cholesterol 30-day Reassessments:: Met (pt taking cholesterol medications as prescribed, pt attending nutrition classes, pt instructed on cholesterol ) Diabetes (Other Core Measures) Diabetes Type: Not Applicable Weight Mgt (Other Care) Not Applicable: No Height: 5 ft 5.5 in Weight:: 171 lb BMI: 28.0 BMI (Report if calculated above): 28 Diagnosis Overweight/Obesity BMI> 30% ICD-10 E66: No Diagnosis High BMI/Morbid Obesity BMI> 35% ICD-10 Z68: No Outcomes/Goals: Pt sets, maintains & shows weight loss goal & trend during rehab Intervention/Plan: Instruct on ideal BMI & set weight loss goal w/patient, Assist pt to ID & incorporate diet changes for weight loss by S9, Refer to Structured Weight Loss program as appropriate and Encourage goal of using 250- 300dcal per session for weight loss 30 day Reassessments:: Met Healthy Eating Habits Will attend diet classes:: Yes Outcomes/Goals:: Consume diet rich in vegs,fruits,whole grain/high fiber,fish,lean meat and Limit sat/trans fats,cholesterol & added salts & sugars Intervention/Plan:: Assess current eating habits 30-day Reassessments:: Progressing Reassessment Notes & Comments:: Pt attending nutrition classes, pt can verbalize healthy eating habits Education Gave educational materials for:: Signs & symptoms of hypoglycemia, Signs & symptoms of hyperglycemia, Relate diabetes to coronary artery disease and Healthy eating Core - Final Assessment Hypertension Resting Blood Pressure:: 132/70 [place] [employer] Hypertension Guidelines Core - 60-Day Assessment Visit Date of Eval: 03/11/25 Session #:: 20 Medication Compliance Preventative Medication(s):: Clopidogrel/P2Y12 inhibit, Statin/lipid, Eliquis and ARB (Angiotensi Rcap) H/O mental health issues: depression, anxiety, or addiction?: No Doesn?t believe in the benefits of treatment?: No Believes medications are unnecessary or harmful?: No Has a concern about medication side effects?: No Expresses concern over the cost of medications?: No Outcomes/Goals: Verbalizes medications,desired effect & common side effects @ DC, Pt self-reports following medication regimen and Keeps card in wallet w/medications listed by DC Interventions/plans: Instruct on medication effects & side effects, Review medication list w/patient every two weeks and Instruct importance of taking meds as ordered & assist problem solving 30-day Reassessments:: Progressing Reassessment Notes & Comments:: Pt taking medications as prescribed, pt encouraged to keep card in wallet with medications listed Tobacco Use Tobacco Use: Non-smoker Hypertension Hypertension Diagnosis:: Hypertension ICD-10 I10 Resting Blood Pressure:: 132/72 Resting Blood Pressure:: 132/70 [place] [employer] Hypertension Guidelines Peak Exercise Blood Pressure:: 176/74 Outcomes/Goals: Able to verbalize/achieve optimal blood pressure <130/80 and Incorporates diet changes & exercise for blood pressure control by DC Interventions/plan: Instruct on optimal blood pressure, hypertension & medications, Instruct on effects of sodium, alcohol, stress, exercise &hypertension and Other additional plan/interventions 30 day Reassessments:: Progressing Reassessment Notes & Comments:: pt can verbalize optimal blood pressure, pt educated on low sodium cardiac diet and attending diet classes, 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 with 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 to optimize blood 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 Psychosocial - 30-Day Assess Target Goals Target Goals Referral to Behavioral Health PS - Interventions: Yes: Referral to Behavioral Health if PHQ-9 score >9: ( provided list of local mental health resources) and Yes: Attend Stress Management Classes and No: Referral to [facility] and No: Referral to Physician if PHQ-9 if score is 5-9: Outcomes/Goals: See list Psychosocial Outcomes/Goals:: ID's personal stressors & 2 strategies to manage stress by discharge Psychosocial - 60-Day Assess VIsit Date of Eval: 03/11/25 Session #:: 20 History of previous Mental disease:: No History of Emotional Disorders: None Target Goals Target Goals Psychosocial Test Tool Used:: PHQ-9 Questionnaire phq-9 Severity See PHQ-9 Score: 11 Referral to Behavioral Health PS - Interventions: Yes: Referral to Behavioral Health if PHQ-9 score >9: (provided list of local mental health resources) and Yes: Attend Stress Management Classes and No: Referral to [facility] and No: Referral to Physician if PHQ-9 if score is 5-9: Outcomes/Goals: See list Psychosocial Outcomes/Goals:: ID's personal stressors & 2 strategies to manage stress by discharge Intervention/Plan: See List Interventions/Plan:: Assess stressors,coping strategies & signs of derpression on admission, Instruct/assist pt to develop coping & personal stress Mgt strategies, Refer to Behavioral Health if appropriate, Refer to Physician if appropriate and Instruct patient to recognize signs & symptoms of depression 30-day Reassessments: 30 day Reassessments:: Progressing Reassessment Notes & Comments:: Pt attending stress management classes, pt able to verbalize effective coping strategies and state signs of depression Psychosocial - 90-Day Assess Target Goals Target Goals Referral to Behavioral Health PS - Interventions: Yes: Referral to Behavioral Health if PHQ-9 score >9: (provided list of local mental health resources) and Yes: Attend Stress Management Classes and No: Referral to [facility] and No: Referral to Physician if PHQ-9 if score is 5-9: Psychosocial - Final Assessmen Target Goals Target Goals Referral to Behavioral Health PS - Interventions: Yes: Referral to Behavioral Health if PHQ-9 score >9: (provided list of local mental health resources) and Yes: Attend Stress Management Classes and No: Referral to [facility] and No: Referral to Physician if PHQ-9 if score is 5-9: Nutrition - 90-Day Assessment Weight Mgt (Other Care) Height: 5 ft 5.5 in Weight:: 171 lb BMI: 28.0 BMI (Report if calculated above): 28 Nutrition - Final Assessment Weight Mgt (Other Care) Height: 5 ft 5.5 in Weight:: 171 lb BMI: 28.0 BMI (Report if calculated above): 28
[2025-03-11 10:21] VITALS: BP 132/70; BP 132/72; BP 138/80; BMI 28.0
== END 2025-03-27 23:59 ==
LOC: CR 13:00
PROVIDERS: PCP Family Medicine Geriatric Medicine
DX: Z95.2 Presence of prosthetic heart valve (principal)
CPT/HCPCS: 93798

== ENCOUNTER → 2025-03-31 | Outpatient (CLI) | payer MEDICARE, SELFPAY ==
[2025-03-11 10:21] VITALS: BMI 28.0
[2025-03-31 15:29] LABS: Absolute Lymphocyte Count 1.39 X10^3/uL (0.83-4.51); Absolute Neutrophil Count 2.9 X10^3/uL (2.0-7.7); Basophil# 0.03 X10^3/uL; Basophil% 0.6 % (0-1); Eosinophil# 0.07 X10^3/uL; Eosinophils% 1.5 % (0-5); Hematocrit 36.4 % (37-47); Hemoglobin 12.2 g/dL (12.0-15.0); Lymphocyte # 1.39 X10^3/ul (0.83-4.51); Lymphocyte % 28.9 % (19-41); Mean Corp Hgb Conc 33.5 g/dL (32-36); Mean Corpuscular Hgb 30.3 pg (27.0-32.0); Mean Corpuscular Volume 90.3 fL (81-99); Monocyte# 0.42 X10^3/uL; Monocyte% 8.7 % (0-10); NRBC Flagged by Analyzer 0 % (0-5); Neutrophil # 2.89 X10^3/uL (2.7-7.7); Neutrophil % 60.1 % (47-70); Platelet Count 162 K/mm3 (150-450); RBC Distribution Width CV 13.4 % (11.6-14.6); RBC Distribution Width SD 44.7 fl (35.1-43.9); Red Blood Count 4.03 M/mm3 (4.2-5.4); White Blood Count 4.8 K/mm3 (4.4-11.0)
[2025-03-31 16:17] LABS: ALB/GLOB Ratio 1.4 RATIO (0.9-2.4); AST(SGOT) 53 U/L (<=31); Alanine Aminotransfer ALT/SGPT 12 U/L (<=34); Alkaline Phosphatase 75 U/L (35-104); Anion Gap 12 (5-15); BUN 19 mg/dL (4-19); BUN/Creat Ratio 23.5 RATIO (10-20); Calcium,Total 9.5 mg/dL (7.6-11.0); Carbon Dioxide 21.6 mmol/L (21.0-32.0); Chloride 105 mmol/L (98-108); Cholesterol 159 mg/dL (<=200); Creatinine, Serum 0.79 mg/dL (0.70-1.20); EST Glomerular Filtration Rate 73 (>60); Globulin 2.9 g/dL (2.2-4.2); Glucose 99 mg/dL (70-99); High Density Lipoprotein 79 mg/dL; Low Density Lipoprotein Calc. 64 mg/dL; Potassium 4.4 mmol/L (3.3-5.1); Protein, Total 6.9 g/dL (5.9-8.4); Sodium Level 138 mmol/L (133-145); Total Bilirubin 0.44 mg/dL (0.00-1.30); Triglycerides 79 mg/dL; Very Low Density Lipoprotein 16 mg/dL (5-40); Vitamin D,25 Hydroxy 20.9 ng/mL (30-100); cholesterol:hdl ratio screen 2.01
== END | disposition home or self-care (01) ==
LOC: LAB 13:39
PROVIDERS: PCP Family Medicine Geriatric Medicine; Referring Provider Family Medicine Geriatric Medicine; Visit Provider Family Medicine Geriatric Medicine
DX: I10 Essential (primary) hypertension (principal); E55.9 Vitamin D deficiency, unspecified; E78.5 Hyperlipidemia, unspecified
CPT/HCPCS: 36415; 80053; 80061; 82306; 84443; 85025

== ENCOUNTER 2025-04-26 13:00 | Outpatient (RCR) | payer MEDICARE, SELFPAY ==
[2025-03-11 10:21] VITALS: BMI 28.0
[2025-03-28 00:32] VITALS: BP 132/70; BP 132/72; BP 138/80; BP 148/82
--- NOTE | 2025-04-07 06:53 | CR.ITP_ITS ---
Exercise - Initial Assessment Physician Prescribed Exercise Modalities: Treadmill, SciFit Stepper and SciFit Pro-II Ergometer Nutrition - Initial Assessment Weight Mgt (Other Care) Height: 5 ft 5.5 in Weight:: 172 lb BMI: 28.1 Psychosocial - Initial Assess Target Goals Target Goals Referral to Behavioral Health PS - Interventions: Yes: Attend Stress Management Classes Patient Health Questionnaire PHQ-9 Screening 90-Day Re-eval Assessment: 1. Little interest or pleasure in doing things: Nearly every day 2. Feeling down, depressed, or hopeless: More than half the days 3. Trouble falling or staying asleep, or sleeping too much: Nearly every day 4. Feeling tired or having little energy: Nearly every day 5. Poor appetite or overeating: Not at all 6. Feeling bad about yourself -- or that you are a failure or have let yourself or your family down: Not at all 7. Trouble concentrating on things, such as reading the newspaper or watching television: Not at all 8. Moving or speaking so slowly that other people could have noticed. Or the opposite - being so fidgety or restless that you have been moving around a lot more than usual: Not at all 9. Thoughts that you would be better off , or of hurting yourself in some way: Not at all How difficult have these problems made it for you to do your work, take care of things at home, or get along with other people?: Not difficult at all Total Score: 11 Self-Efficacy 6-Item Scale 90-Day Re-eval Assessment: We would like to know how confident you are in doing certain activities. Please select your confidence level for: Fatigue Select Number: 10 Physical Discomfort or Pain Select Number: 10 Emotional Distress Select Number: 10 Other Symptoms or Health Problems Select Number: 10 Different Tasks and Activities Select Number: 10 Medication Select Number: 10 Total Score:: 10 Nutrition Survey Nutrition Survey Instructions Scoring Instructions Exercise - 30-day Assessment Physician Prescribed Exercise Modalities: Treadmill, SciFit Stepper and SciFit Pro-II Ergometer Exercise - 60-day Assessment Physician Prescribed Exercise Modalities: Treadmill, SciFit Stepper and SciFit Pro-II Ergometer Exercise - 90-day Assessment Visit Date of Eval: 04/07/25 Session #:: 27 Physician Prescribed Exercise Modalities: Treadmill, SciFit Stepper and SciFit Pro-II Ergometer Frequency: 3x/week for 12 weeks [36 sessions] Intensity: 60-80% of age predicted maximum heart rate reserve Duration: 30 - 45 minutes Current METSs:: 5.8 Target Heart Rate:: 81-101 Current RPE:: 13 Maximum Excercise HR:: 89 Resting Blood Pressure: 154/70 Maximum Exercise Blood Pressure: 180/80 EKG Type: NSR w/ 1st degree block, incomplete BBB with occas PAC Outcomes & Goals Goals:: Verbalizes understanding of THR, RPE & goal METS by session 6, Documents in home exercise log/reports 30 min aerobic 5 day/wk by DC, Demonstrates ac curate pulse taking by DC and Other additional outcome/goals: see below Intervention & Plan Exercise Program Goals: Instruct on personal THR & RPE, Instruct on MET level & personal MET goal, Show patient to take own pulse /validate performance until accurate, Instruct on home exercise and Other additional plan/int Physical Activity Home Exercise Physical Activity - Home Exercise: Safe Exercise, Warm-up, Self-monitoring, Cool-Down, Home Exercise > 30 min Daily and Sitting Time <3 hours/daily Outcomes & Goals Outcomes/Goals: Demonstrates correct Warm-up/exercise Cool-Down (S3) if = 2.5 METs, Verbalizes symptoms of exercise intolerance by Session 3 (S3), Demonstrate safe equipment use (S3) & follows exercise prescrition (6) and Other: See below Intervention & Plan Plan/Intervention: Instruct warm-up & cool-down if exercising at > 2 METs, Instruct on symptoms of exercise intolerance & actions to take, Instruct & monitor on saf, Assess intial functional capacity & safety risk and Other See below 30-day Reassessments 30 day Reassessments:: Progressing Reassessment Notes & Comments:: Pt has been able to increase her exercise intensity to 5.8 METS. Will continue to increase as tolerated. Will continue to encourage pt. Exercise - Final/Discharge Physician Prescribed Exercise Modalities: Treadmill, SciFit Stepper and SciFit Pro-II Ergometer Nutrition - 30-Day Assessment Weight Mgt (Other Care) Height: 5 ft 5.5 in Weight:: 172 lb BMI: 28.1 Nutrition - 60-Day Assessment Weight Mgt (Other Care) Height: 5 ft 5.5 in Weight:: 172 lb BMI: 28.1 Core - 30-Day Assessment Hypertension [place] [employer] Hypertension Guidelines Reassessment Notes & Comments:: Pt and staff working with head of biology to optimize BP's Core - Final Assessment Hypertension [place] [employer] Hypertension Guidelines Reassessment Notes & Comments:: Pt and staff working with head of biology to optimize BP's Core - 90 Day Assessment Visit Date of Eval: 04/07/25 Session #:: 27 Medication Compliance Preventative Medication(s):: Clopidogrel/P2Y12 inhibit, Statin/lipid, Eliquis and ARB (Angiotensi Rcap) H/O mental health issues: depression, anxiety, or addiction?: No Doesn?t believe in the benefits of treatment?: No Believes medications are unnecessary or harmful?: No Has a concern about medication side effects?: No Expresses concern over the cost of medications?: No Outcomes/Goals: Verbalizes medications,desired effect & common side effects @ DC, Pt self-reports following medication regimen, Keeps card in wallet w/medications listed by DC and Other additional outcome/goals: Interventions/plans: Instruct on medication effects & side effects, Review medication list w/patient every two weeks, Instruct importance of taking meds as ordered & assist problem solving and Other additional Tobacco Use Tobacco Use: Non-smoker Hypertension Hypertension Diagnosis:: Hypertension ICD-10 I10 Resting Blood Pressure:: 154/70 [place] [employer] Hypertension Guidelines Peak Exercise Blood Pressure:: 180/80 Outcomes/Goals: Able to verbalize/achieve optimal blood pressure <130/80, Incorporates diet changes & exercise for blood pressure control by DC and Other additional outcomes/goals Interventions/plan: Instruct on optimal blood pressure, hypertension & medicatio ns, Instruct on effects of sodium, alcohol, stress, exercise &hypertension and Other additional plan/interventions 30 day Reassessments:: Progressing Reassessment Notes & Comments:: Pt and staff working with head of biology to optimize BP's Tobacco Cessation Referral Smoking Cessation Referral:: No Individual Education/Counseling:: No Education Schedule Given:: Yes Psychosocial - 30-Day Assess Target Goals Target Goals Referral to Behavioral Health PS - Interventions: Yes: Attend Stress Management Classes Psychosocial - 60-Day Assess Target Goals Target Goals Referral to Behavioral Health PS - Interventions: Yes: Attend Stress Management Classes Psychosocial - 90-Day Assess VIsit Date of Eval: 04/07/25 Session #:: 27 History of previous Mental disease:: No Target Goals Target Goals Psychosocial Test Tool Used:: PHQ-9 Questionnaire phq-9 Severity See PHQ-9 Score: 11 Referral to Behavioral Health PS - Interventions: Yes: Attend Stress Management Classes Outcomes/Goals: See list Psychosocial Outcomes/Goals:: ID's personal stressors & 2 strategies to manage stress by discharge and Other Additional outcome/goals: Intervention/Plan: See List Interventions/Plan:: Assess stressors,coping strategies & signs of derpression on admission, Instruct/assist pt to develop coping & personal stress Mgt strategies, Refer to Behavioral Health if appropriate, Refer to Physician if appropriate, Instruct patient to recognize signs & symptoms of depression, Instruct patient to recog and Other additional plan/intervention 30-day Reassessments: 30 day Reassessments:: Met Reassessment Notes & Comments:: Pt denies any psychosocial issues at this time. Will continue to monitor. Psychosocial - Final Assessmen Target Goals Target Goals Referral to Behavioral Health PS - Interventions: Yes: Attend Stress Management Classes Nutrition - 90-Day Assessment Program Goals Nutrition Program Goals Patient has diagnosis of Hyperlipidemia (ICD E78)?: Yes Visit Date of Eval: 04/07/25 Session #:: 27 Cholesterol/Lipids (Other Core Measures) Determine presence & major risk factors that modify LDL goal: Hypertension or hypertensive medication, Low HDL cholesterol <40 mg/dL*, Family history of premature CHD in Male < 55 years: female <65 yearsFa and Age men > 45 years; women >/= 55 years Outcomes/Goals: Pt IDs own risk factors & lifestyle modifications by Session 10, Verbalizes symptoms of angina & response by session 3., Pt independently manages and Other Additional Outcomes/Goals: Intervention/Plan: Advocate for lipid panel cholesterol medication if applicable, Instruct on personal lipid levels & lipid goals/NCEP guidelines, Instruct on cholesterol and Other additional plan/int Diabetes (Other Core Measures) Diabetes Type: Not Applicable Weight Mgt (Other Care) Height: 5 ft 5.5 in Weight:: 172 lb BMI: 28.1 Diagnosis Overweight/Obesity BMI> 30% ICD-10 E66: No Diagnosis High BMI/Morbid Obesity BMI> 35% ICD-10 Z68: No Outcomes/Goals: Pt sets, maintains & shows weight loss goal & trend during rehab and Other additional outcomes/goals Healthy Eating Habits Will attend diet classes:: Yes Outcomes/Goals:: Consume diet rich in vegs,fruits,whole grain/high fiber,fish,lean meat, Limit sat/trans fats,cholesterol & added salts & sugars and Other additional outcome/goals: Intervention/Plan:: Assess current eating habits and Other Additional plan/interventions 30-day Reassessments:: Met Reassessment Notes & Comments:: Pt has attended nutrition classes and understands the benefits of a heart healthy low sodium diet. Education Gave educational materials for:: Signs & symptoms of hypoglycemia, Signs & symptoms of hyperglycemia, Relate diabetes to coronary artery disease and Healthy eating Nutrition - Final Assessment Weight Mgt (Other Care) Height: 5 ft 5.5 in Weight:: 172 lb BMI: 28.1
[2025-04-07 06:59] VITALS: BP 154/70
[2025-04-07 07:10] VITALS: BP 154/70; BMI 28.1
== END 2025-04-26 23:59 ==
LOC: CR 13:00
PROVIDERS: PCP Family Medicine Geriatric Medicine
DX: Z95.2 Presence of prosthetic heart valve (principal)
CPT/HCPCS: 93798

== ENCOUNTER 2025-04-28 13:16 | Outpatient (RCR) | payer MEDICARE, SELFPAY ==
[2025-04-07 07:10] VITALS: BMI 28.1
== END 2025-05-27 23:59 ==
LOC: CR 13:16
PROVIDERS: PCP Family Medicine Geriatric Medicine
DX: Z95.2 Presence of prosthetic heart valve (principal)
CPT/HCPCS: 93798

== ENCOUNTER 2025-05-07 07:07 | Inpatient (IN) | payer MEDICARE, SELFPAY ==
[2025-04-07 07:10] VITALS: BMI 28.1
[2025-05-07] VITALS (9 sets, daily range): BP systolic 109–202; BP diastolic 50–91; PULSE 59–80; RESP 12–19; TEMP 36.4–37.3; O2SAT 95–100; BMI 27.2; BMI 27.1
--- NOTE | 2025-05-07 07:21 | RAD_ITS ---
PROCEDURE: FEMUR MIN 2 VIEWS; PELVIS 1 OR 2 VIEWS 05/07/2025 REASON FOR EXAM: PAIN TECHNIQUE: Five view left femur and AP pelvis (combined dictation). COMPARISON: None. RAD/Pelvis 1 or 2 Views IMPRESSION: A spiral FRACTURE of the distal left femoral shaft is seen, with some override also present. No intra-articular extension is clearly evident. 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 In visualized areas, no evidence of p rosthesis loosening or metallic fracture is seen. Vascular stent is seen overlying the right femoral neck. Mild sacroiliac joint degenerative changes are noted. Prominent degenerative changes of the visualized lower lumbar spine are seen. [id number] degenerative changes of the visualized portions of the left kn ee. Reading Location: [address]
--- NOTE | 2025-05-07 07:24 | RAD_ITS ---
PROCEDURE: FEMUR MIN 2 VIEWS; PELVIS 1 OR 2 VIEWS 05/07/2025 REASON FOR EXAM: PAIN TECHNIQUE: Five view left femur and AP pelvis (combined dictation). COMPARISON: None. RAD/Femur Min 2 Views IMPRESSION: A spiral FRACTURE of the distal left femoral shaft is seen, with some override also present. No intra-articular extension is clearly evident. 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 In visualized areas, no evidence of p rosthesis loosening or metallic fracture is seen. Vascular stent is seen overlying the right femoral neck. Mild sacroiliac joint degenerative changes are noted. Prominent degenerative changes of the visualized lower lumbar spine are seen. [id number] degenerative changes of the visualized portions of the left kn ee. Reading Location: [address]
--- NOTE | 2025-05-07 07:33 | EDS_ITS ---
HPI HPI - Fall History of Present Illness Chief Complaint: Fall Narrative Narrative: Chief complaint and HPI: Left thigh pain. 85-year-old female with past medical history of HTN, HLD, CAD, aortic valve replacement, history of DVT which patient states she is on Eliquis presents for evaluation of left thigh pain. Patient states this morning she was on her way back from the restroom when she tripped, twisted her left upper leg, and fell on her bilateral knees. States she was unable to ambulate secondary to the left thigh pain. Pain is minimal at rest, increases with movement. She denies any fever, chills, shortness of breath, chest pain abdominal pain, nausea, vomiting, numbness/tingling. Denies hitting her head or neck. No LOC. Review of systems: See HPI Medications: As listed on the chart Allergies: As listed on the chart PFSH: Per chart Vital signs: As listed on the chart. Reviewed. Physical exam: Gen: A&O x3, NAD Head: Normocephalic, atraumatic Eyes: No sclera icterus, conjunctiva clear, PERRL, EOMI ENT: TMs clear BL, moist mucous membranes, atraumatic without tenderness Neck: Trachea midline, No JVD, Nontender, full range of motion CV: RRR, no murmurs, no chest wall TTP Resp: Lungs CTA BL, no w/r/c GI: Abd soft, non-distended, non-tender, no r/r/g Musc: Full ROM of all extremities except the left lower extremity secondary to thigh pain and swelling-left lower extremity is externally rotated and shortened, femoral/DP/PT pulses +2 bilaterally, compartments soft, capillary refill, no spinal TTP, no darion step-offs Skin: Warm, dry, intact Neuro: Alert, oriented, grossly intact, sensation intact, GCS 15 Psych: Cooperative, appropriate mood and affect [facility] Medical History Laceration of leg Closed head injury Abrasions of multiple sites Laceration of lip Pure hypercholesterolemia Nonrheumatic aortic (valve) stenosis Non-ST elevation (NSTEMI) myocardial infarction Old myocardial infarction Atherosclerotic heart disease of [place] coronary artery without angina pectoris Essential hypertension Seborrheic keratosis Generalized weakness Fall Home Medications ?Medication ?Instructions ?Recorded ?Last Taken ?Type brimonidine 0.2 % eye drops 2 drp EACH EYE BID glaucom a 11/25/17 11/25/17 History dorzolamide 22.3 mg-timolol 6.8 1 drp EACH EYE BID gla ucoma 11/25/17 11/25/17 History mg/mL eye drops latanoprost 0.005 % eye drops 1 drp ophthalmic (eye) Q PM 12/17/19 Unknown History carvedilol 12.5 mg tablet 12.5 mg PO BID #180 tabs 05/21 Unknown Rx apixaban 5 mg tablet (Eliquis) 5 mg PO BID 05/07/25 Un known History clopidogrel 75 mg tablet 75 mg PO DAILY 05/07/25 Unkn own History temazepam 30 mg capsule 30 mg PO DAILY 05/07/25 Unkn own History valsartan 160 mg tablet 80 mg PO DAILY 05/07/25 Unkn own History Allergy/AdvReac Type Severity Reaction Status Date / Time No Known Allergies Allergy Verified 03/16/24 14:09 Family History Father Diabetes Grandmother Colon cancer Surgical History History of left heart catheterization (LHC) (~12/27/17) History of bilateral hip replacements Social History Smoking Status: Never smoker alcohol intake: current alcohol intake frequency: holidays/special occasions only Alcohol type: wine substance use type: does not use caffeine: Yes Type: coffee what type of physical activity do you participate in: none seatbelt use: always do you feel safe at home: Yes EXAM Physical Exam Const Vital Signs: 05/07/25 07:09 05/07/25 07:16 05/07/25 08:08 Temperature 99.1 F Temperature Source Oral Pulse Rate 59 L 68 Respiratory Rate 18 19 H Respiratory Effort Normal Respiratory Depth Normal Respiratory Pattern Normal Blood Pressure 202/87 H 137/91 H Blood Pressure Mean 125 106 Pulse Ox 100 100 Oxygen Delivery Method Room Air Room Air Room Air 05/07/25 09:08 05/07/25 10:00 07/11/25 11:00 Temperature Temperature Source Pulse Rate 72 72 80 Respiratory Rate 17 Respiratory Effort Respiratory Depth Respiratory Pattern Blood Pressure 130/51 H 149/50 H 120/70 Blood Pressure Mean 77 83 86 Pulse Ox 99 98 Oxygen Delivery Method Room Air 05/07/25 12:00 05/07/25 13:00 Temperature Temperature Source Pulse Rate 72 75 Respiratory Rate 18 Respiratory Effort Respiratory Depth Respiratory Pattern Blood Pressure 128/70 H 136/52 H Blood Pressure Mean 89 80 Pulse Ox 95 99 Oxygen Delivery Method Room Air MDM MDM MDM Narrative Medical decision making narrative: 85-year-old female with past medical history of HTN, HLD, CAD, aortic valve replacement, history of DVT which patient states she is on Eliquis presents for evaluation of left thigh pain. Patient had a mechanical fall today in which she landed on her bilateral knees. Only endorsing left thigh pain. On presentation it is swollen and tender in the left thigh. Her left lower extremity is externally rotated and shortened. Pulses intact. She is in no acute distress but hypertensive. Patient states she did not take her blood pressure medication today. Currently rating her pain a 3 out of 10. I offered pain medicine but she declined. Suspect femur fracture. Given that patient likely has a fracture and require surgery basic labs ordered with x-ray of the femur and pelvis. Patient does have a history of a right hip replacement that was done in 1999 at [facility]. Her left hip replacement was done at [facility] by Dr. Nunez in 2026. She no longer follows an orthopedic surgeon. Patient is on Eliquis however she denies any her head. No LOC. Therefore CT head and neck will not be ordered. X-ray of the pelvis and femur were personally reviewed and interpreted by me, ED physician. Patient has a distal left femoral spiral fracture that is partially overriding. Radiology in a [place] agreement. She has bilateral hip prosthesis without injury to her prosthesis. CBC without leukocytosis or anemia. Patient has thrombocytopenia of 144. BMP relatively unremarkable. Patient will warrant surgery for her femur fracture. I did speak with Dr. Livingston, plan will be for surgery on Saturday or Saturday given Eliquis. Patient states she took her last dose of Eliquis yesterday evening. Did not take it this morning. Admit to the hospitalist service. I paged out to the hospitalist service however patient wants to be transferred to [facility] as her inspector and tester is there. I did speak with Dr. Casiano about the patient. He accepted admission however we will wait for possible transfer. Dr. Livingston was updated as well. Will reach out to [facility] orthopedic team. I was informed by our administrative receptionist that if patient transfers to [facility] she will likely have to pay for the ambulance [id number] given that it is a patient request. I did inform the patient of this, she would like us to look into how much this may cost. I did provide this information to the patient, she states that if her insurance does not cover it she is willing to accept the payment. Transfer line stated that orthopedic physician was in the OR and that he will contact us back on the transfer. Patient had a prolonged stay here in the emergency department as we are waiting for the orthopedic physician from [facility]. I did receive a call back from the transfer line. I actually spoke with the hospitalist service Dr. Carson who accepted transfer as the orthopedic physician consented. However transfer line states no beds are available at this time. States it may be multiple days before she r eceives a bed. I did inform the patient of this information. I asked her if she would like me to try another [facility] facility such as [facility]. She is okay with being admitted here at [facility] for the surgery. Our hospitalist service as well as Dr. Livingston was informed of the patient's decision and she will be admitted. Impression: 1. Left distal femur fracture 2. Mechanical fall Lab Data Labs: Laboratory Results - last 24 hr 05/07/25 07:35 WBC 11.0 RBC 4.01 L Hgb 12.3 Hct 36.8 L MCV 91.8 MCH 30.7 MCHC 33.4 RDW Std Deviation 43.8 RDW Coeff of Alex 13.0 Plt Count 144 L MPV 10.2 Immature Gran % (Auto) 0.400 Neut % (Auto) 79.6 H Lymph % (Auto) 13.4 L Baker % (Auto) 4.8 Eos % (Auto) 1.4 Baso % (Auto) 0.4 Absolute Neuts (auto) 8.8 H Absolute Lymphs (auto) 1.48 Nucleated RBC % 0 Sodium 137 Potassium 4.0 Chloride 103 Carbon Dioxide 24.3 Anion Gap 10 BUN 23 H Creatinine 0.92 Est GFR (MDRD) Non-Af 61 BUN/Creatinine Ratio 24.8 H Glucose 143 H Calcium 9.2 Radiography Diagnostic Testing: Clinical Impression(s) from Imaging Studies Pelvis X-Ray 05/07/25 07:21 IMPRESSION: A spiral FRACTURE of the distal left femoral shaft is seen, with some override also present. No intra-articular extension is clearly evident. 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 In visualized areas, no evidence of prosthesis loosening or metallic fracture is seen. Vascular stent is seen overlying the right femoral neck. Mild sacroiliac joint degenerative changes are noted. Prominent degenerative changes of the visualized lower lumbar spine are seen. [id number] degenerative changes of the visualized portions of the left knee. Reading Location: [address] Femur X-Ray 05/07/25 07:24 IMPRESSION: A spiral FRACTURE of the distal left femoral shaft is seen, with some override also present. No intra-articular extension is clearly evident. 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 In visualized areas, no evidence of prosthesis loosening or metallic fracture is seen. Vascular stent is seen overlying the right femoral neck. Mild sacroiliac joint degenerative changes are noted. Prominent degenerative changes of the visualized lower lumbar spine are seen. [id number] degenerative changes of the visualized portions of the left knee. Reading Location: [address] Discharge Plan Disposition Disposition: Acute Care Hospital [facility] Discharge Date/Time: 05/07/25 15:10
[2025-05-07 07:45] LABS: Hematocrit 36.8 % (37-47); Hemoglobin 12.3 g/dL (12.0-15.0); Immature Granulocytes Count 0.040 X10^3/uL (0.0-0.0); Mean Corp Hgb Conc 33.4 g/dL (32-36); Mean Corpuscular Volume 91.8 fL (81-99); Mean Platelet Vol. 10.2 fl (6.2-12.0); NRBC Flagged by Analyzer 0 % (0-5); Platelet Count 144 K/mm3 (150-450); RBC Distribution Width CV 13.0 % (11.6-14.6); RBC Distribution Width SD 43.8 fl (35.1-43.9); Red Blood Count 4.01 M/mm3 (4.2-5.4); White Blood Count 11.0 K/mm3 (4.4-11.0)
[2025-05-07 08:35] LABS: Anion Gap 10 (5-15); BUN 23 mg/dL (4-19); BUN/Creat Ratio 24.8 RATIO (10-20); Calcium,Total 9.2 mg/dL (7.6-11.0); Carbon Dioxide 24.3 mmol/L (21.0-32.0); Chloride 103 mmol/L (98-108); Glucose 143 mg/dL (70-99); Potassium 4.0 mmol/L (3.3-5.1)
--- NOTE | 2025-05-07 09:00 | PCA ---
CALLED PHYSICANS AND THEY WILL NOT TRANSPORT TO [facility] WITHOUT FULL PAYMENT UPFRONT
--- NOTE | 2025-05-07 09:46 | PCA ---
CALLED [facility]@ [phone] FAXED OVER FACE SHEET AND PUSHED IMAGES UP TO MAIN. TALKED TO KODY. SHE SAID SHE WOULD REACH OUT TO ORTHO. SHE ALSO STATED MOST LIKELY, THE PATIENT WOULDN'T BE ABLE TO GO TO MAIN CAUSE IT IS NOT A TRAUMA CENTER. AND THIS WAS CAUSED BY A FALL. IT IS DEPENDING ON WHAT ORTHO'S THOUGHT PROCESS IS THOUGH.
--- NOTE | 2025-05-07 11:04 | PCA ---
CALLED [facility] [phone] FOR AN UPDATE ORTHO IS SCRUBBED IN. DR SAXENA WILL CALL WHEN HE IS SCRUBBED OUT OF HIS SURGERY.
--- NOTE | 2025-05-07 16:34 | PCM.HP.STD ---
[facility] - General General Date of Admission: 05/07/25 Date of Service: 05/07/25 Chief Complaint: Left leg injury, inability to ambulate HPI Narrative GOGO WARE, is a 85 F who presents to the emergency room at [facility] after sustaining a mechanical fall at home, she landed on her knees and then had severe left upper leg pain and was unable to bear weight on the left leg. Patient's past medical history includes a TAVR insertion in October 2024, she also has approximately 70% stenosis of one of her coronary arteries which has not changed in several years, she takes clopidogrel chronically. Patient also takes Eliquis due to a VTE in the leg in the past. She did not take her Eliquis today. X-rays obtained in the emergency room showed a spiral fracture of the left leg, initially the patient wanted to be transferred to [facility] if possible due to the fact her media developer was from the main campus but there was not a bed available and she ultimately decided to stay here and have it repaired here. Patient CBC is unremarkable, chemistry profile was unremarkable also. Patient will be admitted to [place] [address], she will be seen by orthopedic surgery most likely undergo ORIF of the left distal femur fracture. 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[place] coronary artery without angina pectoris Essential hypertension Seborrheic keratosis Generalized weakness Fall Home Medications ?Medication ?Instructions ?Recorded ?Last Taken ?Type brimonidine 0.2 % eye drops 2 drp EACH EYE BID glaucoma 11/25/17 11/25/17 History dorzolamide 22.3 mg-timolol 6.8 1 drp EACH EYE BID glaucoma 11/25/17 11/25/17 History mg/mL eye drops latanoprost 0.005 % eye drops 1 drp ophthalmic (eye) QPM 12/17/19 Unknown History carvedilol 12.5 mg tablet 12.5 mg PO BID #180 tabs 11/03/24 Unknown Rx apixaban 5 mg tablet (Eliquis) 5 mg PO BID 05/07/25 Unknown History clopidogrel 75 mg tablet 75 mg PO DAILY 05/07/25 Unknown History temazepam 30 mg capsule 30 mg PO DAILY 05/07/25 Unknown History valsartan 160 mg tablet 80 mg PO DAILY 05/07/25 Unknown History Allergy/AdvReac Type Severity Reaction Status Date / Time No Known Allergies Allergy Verified 03/16/24 14:09 Family History Father Diabetes Grandmother Colon cancer Surgical History History of left heart catheterization (LHC) (~12/27/17) History of bilateral hip replacements Social History Smoking Status: Never smoker alcohol intake: current alcohol intake frequency: holidays/special occasions only Alcohol type: wine substance use type: does not use caffeine: Yes Type: coffee what type of physical activity do you participate in: none seatbelt use: always do you feel safe at home: Yes ROS Constitutional Constitutional: Denies anorexia, change in weight, fever(s), night sweats or weakness Eyes Eyes: Denies blurry vision, change in vision, discharge from eye(s) or eye pain Cardiovascular Cardiovascular: Denies chest pain, claudication, edema or palpitations Respiratory/Chest Respiratory/Chest: Denies cough, hemoptysis, shortness of breath at rest or shortness of breath with exertion Gastrointestinal Gastrointestinal: Denies abdominal pain, constipation, diarrhea, hematemesis, hematochezia, melena, nausea or vomiting Genitourinary Genitourinary: Denies dysuria, hematuria, urinary frequency, urinary hesitancy, urinary incontinence or urinary urgency Musculoskeletal Musculoskeletal: Reports other Details: Severe left upper leg pain with inability to bear weight after a fall today at her home ; Denies back pain, joint pain, joint stiffness, joint swelling, myalgias or neck pain Neurologic Neurologic: Denies abnormal gait, abnormal speech, dizziness, focal weakness, headache(s), loss of vision, numbness, other visual disturbances, paresthesias, syncope or tingling Psychiatric Psychiatric: Denies anxiety, cognitive impairment, depression, irritability, mood swings or suicidal ideation Endocrine Endocrinology: Denies change in body appearance, cold intolerance, excessive sweating, heat intolerance, polydipsia or polyuria Hematologic/Lymphatic Hematologic/Lymphatic: Denies none, anemia, easy bleeding, easy bruising or lymphadenopathy Allergic/Immunologic Allergic/Immunologic: Denies rhinitis, urticaria, eczemia or asthma Vital Signs Vital Signs Vital Signs: 05/07/25 07:09 05/07/25 07:16 05/07/25 08:08 Temperature 99.1 F Temperature Source Oral Pulse Rate 59 L 68 Respiratory Rate 18 19 H Respiratory Effort Normal Respiratory Depth Normal Respiratory Pattern Normal Blood Pressure 202/87 H 137/91 H Blood Pressure Mean 125 106 Pulse Ox 100 100 Oxygen Delivery Method Room Air Room Air Room Air 05/07/25 09:08 05/07/25 10:00 05/07/25 11:00 Temperature Temperature Source Pulse Rate 72 72 80 Respiratory Rate 17 Respiratory Effort Respiratory Depth Respiratory Pattern Blood Pressure 130/51 H 149/50 H 120/70 Blood Pressure Mean 77 83 86 Pulse Ox 99 98 Oxygen Delivery Method Room Air 05/07/25 12:00 05/07/25 13:00 05/07/25 14:13 Temperature 97.6 F L Temperature Source Pulse Rate 72 75 75 Respiratory Rate 18 12 Respiratory Effort Respiratory Depth Respiratory Pattern Blood Pressure 128/70 H 136/52 H 109/56 L Blood Pressure Mean 89 80 73 Pulse Ox 95 99 97 Oxygen Delivery Method Room Air Weight Weight: 75.296 kg Body Mass Index (BMI) 27.1 Physical Exam Const alert, oriented x3, no apparent distress and healthy appearing Constitutional Narrative: Patient appears much younger than her stated age General Appearance: cooperative, well kempt and well developed Orientation / Consciousness: awake, oriented to person, oriented to place and oriented to time HEENT normocephalic, head/scalp atraumatic, hearing grossly normal bilaterally and moist oral mucous membranes Eyes PERRL, EOMs intact bilaterally and conjunctivae normal Neck supple, no JVD, thyroid normal and no carotid bruits General: trachea midline Resp normal respiratory effort, no retractions, no use of accessory muscles and clear to auscultation bilaterally Auscultation: Negative for rales, rhonchi or wheezes Cardio regular rate, regular rhythm, S1 normal heart sound, S2 normal heart sound, no murmurs, no rub and no gallops GI normal to inspection, nondistended, normoactive bowel sounds, soft to palpation, non-tender and non-distended Skin no rashes or lesions noted General Skin Exam: no breakdown Neuro oriented x3, CN's II-XII intact bilaterally, no focal motor deficits and no sensory deficits noted Sensorium / Orientation: awake and alert Speech: speech normal Psych affect normal Results Lab / Micro Data 05/07/25 07:35 05/07/25 07:35 Labs: Laboratory Results - last 24 hr 05/07/25 07:35: WBC 11.0, RBC 4.01 L, Hgb 12.3, Hct 36.8 L, MCV 91.8, MCH 30.7, MCHC 33.4, RDW Std Deviation 43.8, RDW Coeff of Alex 13.0, Plt Count 144 L, MPV 10.2, Immature Gran % (Auto) 0.400, Neut % (Auto) 79.6 H, Lymph % (Auto) 13.4 L, [place] % (Auto) 4.8, Eos % (Auto) 1.4, Baso % (Auto) 0.4, Absolute Neuts (auto) 8.8 H, Absolute Lymphs (auto) 1.48, Nucleated RBC % 0, Sodium 137, Potassium 4.0, Chloride 103, Carbon Dioxide 24.3, Anion Gap 10, BUN 23 H, Creatinine 0.92, Est GFR (MDRD) Non-Af 61, BUN/Creatinine Ratio 24.8 H, Glucose 143 H, Calcium 9.2 Imaging Radiology Impression Pelvis X-Ray 05/07/25 07:21 IMPRESSION: A spiral FRACTURE of the distal left femoral shaft is seen, with some override also present. No intra-articular extension is clearly evident. 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 In visualized areas, no evidence of prosthesis loosening or metallic fracture is seen. Vascular stent is seen overlying the right femoral neck. Mild sacroiliac joint degenerative changes are noted. Prominent degenerative changes of the visualized lower lumbar spine are seen. [id number] degenerative changes of the visualized portions of the left knee. Reading Location: [id number] Femur X-Ray 05/07/25 07:24 IMPRESSION: A spiral FRACTURE of the distal left femoral shaft is seen, with some override also present. No intra-articular extension is clearly evident. 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 In visualized areas, no evidence of prosthesis loosening or metallic fracture is seen. Vascular stent is seen overlying the right femoral neck. Mild sacroiliac joint degenerative changes are noted. Prominent degenerative changes of the visualized lower lumbar spine are seen. [id number] degenerative changes of the visualized portions of the left knee. Reading Location: [address] Assessment & Plan Assessment/Plan (1) Femoral distal fracture: PLAN: Plan 1. Left distal femur fracture secondary to osteoporosis-patient was admitted to [place] [address] and she will be seen by orthopedic surgery, most likely she will undergo an ORIF of the left femur fracture tomorrow #2 history of valvular heart disease with recent TAVR-patient appears medically stable #3 coronary artery disease-patient appears medically stable at this time, I will hold her Plavix for now #4 essential hypertension-patient will remain on her current medications #5 chronic use of anticoagulant-patient's Eliquis will be held for now because of her upcoming surgery tomorrow #6 glaucoma-patient will remain on her eyedrops Total clinical time spent by myself addressing the patient's medical issues, reviewing all of her data, and collaborating with patient's care team: 55-minute Charges/Coding Visit Charges Inpatient E&M: 41778 Init Hosp L2
--- NOTE | 2025-05-07 16:58 | CON.PCM.OR_ITS ---
HPI Consult Data Date of Consult: 05/07/25 HPI Narrative Reason for Consultation: Left femur fracture HPI Narrative: GOGO WARE, is a 85 F who presented to [facility] this morning after mechanical fall from standing height at home. She states she fell on both knees and twisted her left leg. She noted immediate pain and inability bear weight. She was brought to emergency department x-rays revealed a left femur fracture. 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 She is currently on Eliquis and has a follow-up in May and believes she is likely to stop the Eliquis at that time. Her last dose of Eliquis was last evening. She was admitted to the service to hospitalist. I saw the patient in consultation. She denies any other aches or pains. Denies head injury or loss consciousness. Community ambulator without assistive device. She lives alone at home. Denies any problems with anesthesia in the past. Prior left total hip arthroplasty by Dr. Gonzalo Palmer remotely. Denies fevers, chills, nausea vomiting, chest pain or shortness of breath. 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 Essential hypertension Seborrheic keratosis Generalized weakness Fall Home Medications ?Medication ?Instructions ?Recorded ?Last Taken ?Type brimonidine 0.2 % eye drops 2 drp EACH EYE BID glaucom a 11/25/17 11/25/17 History dorzolamide 22.3 mg-timolol 6.8 1 drp EACH EYE BID gla ucoma 11/25/17 11/25/17 History mg/mL eye drops latanoprost 0.005 % eye drops 1 drp ophthalmic (eye) Q PM 12/17/19 Unknown History carvedilol 12.5 mg tablet 12.5 mg PO BID #180 tabs 05/21 Unknown Rx apixaban 5 mg tablet (Eliquis) 5 mg PO BID 05/07/25 Un known History clopidogrel 75 mg tablet 75 mg PO DAILY 05/07/25 Unkn own History temazepam 30 mg capsule 30 mg PO DAILY 05/07/25 Unkn own History valsartan 160 mg tablet 80 mg PO DAILY 05/07/25 Unkn own History Allergy/AdvReac Type Severity Reaction Status Date / Time No Known Allergies Allergy Verified 03/16/24 14:09 Family History Father Diabetes Grandmother Colon cancer Surgical History History of left heart catheterization (LHC) (~12/27/17) History of bilateral hip replacements Social History Smoking Status: Never smoker alcohol intake: current alcohol intake frequency: holidays/special occasions only Alcohol type: wine substance use type: does not use caffeine: Yes Type: coffee what type of physical activity do you participate in: none seatbelt use: always do you feel safe at home: Yes ROS ROS Narrative 12 point review of systems obtained, negative unless otherwise known HPI. Vital Signs Vital Signs Vital Signs: 05/07/25 07:09 05/07/25 07:16 05/07/25 08:08 Temperature 99.1 F Temperature Source Oral Pulse Rate 59 L 68 Respiratory Rate 18 19 H Respiratory Effort Normal Respiratory Depth Normal Respiratory Pattern Normal Blood Pressure 202/87 H 137/91 H Blood Pressure Mean 125 106 Pulse Ox 100 100 Oxygen Delivery Method Room Air Room Air Room Air 05/07/25 09:08 05/07/25 10:00 05/07/25 11:00 Temperature Temperature Source Pulse Rate 72 72 80 Respiratory Rate 17 Respiratory Effort Respiratory Depth Respiratory Pattern Blood Pressure 130/51 H 149/50 H 120/70 Blood Pressure Mean 77 83 86 Pulse Ox 99 98 Oxygen Delivery Method Room Air 05/07/25 12:00 05/07/25 13:00 05/07/25 14:13 Temperature 97.6 F L Temperature Source Pulse Rate 72 75 75 Respiratory Rate 18 12 Respiratory Effort Respiratory Depth Respiratory Pattern Blood Pressure 128/70 H 136/52 H 109/56 L Blood Pressure Mean 89 80 73 Pulse Ox 95 99 97 Oxygen Delivery Method Room Air Weight Weight: 166 lb Body Mass Index (BMI) 27.1 Physical Exam Narrative General -A&Ox3, NAD, appears stated age. Vital signs stable, afebrile. Respiratory -normal work of breathing, no intercostal retractions. CV -pulses regular, brisk capillary refill ?4 limbs. Abdomen-soft, nontender, nondistended. No guarding, rigidity, rebound tenderness. Musculoskeletal/neurologic -full range of motion nontender throughout bilateral upper extremities, lower extremity with full sensation and strength in all dermatomes and myotomes. No midline cervical tenderness.Left lower extremity- knee immobilizer in place. Knee immobilizer was opened. She is appropriately tender in the mid femur. No rashes or lesions, lacerations or abrasions. Brisk capillary refill. Sensation intact light touch L3-S1 dermatomes. DF, PF, EHL intact. DP, PT 2+. Pelvis is stable, nontender. Skin is intact without lacerations, abrasions. No ecchymosis noted. Lab / Micro Data 05/07/25 07:35 05/07/25 07:35 Labs: Laboratory Results - last 24 hr 05/07/25 07:35: WBC 11.0, RBC 4.01 L, Hgb 12.3, Hct 36.8 L, MCV 91.8, MCH 30.7, MCHC 33.4, RDW Std Deviation 43.8, RDW Coeff of Alex 13.0, Plt Count 144 L, MPV 10.2, Immature Gran % (Auto) 0.400, Neut % (Auto) 79.6 H, Lymph % (Auto) 13.4 L, Finney % (Auto) 4.8, Eos % (Auto) 1.4, Baso % (Auto) 0.4, Absolute Neuts (auto) 8.8 H, Absolute Lymphs (auto) 1.48, Nucleated RBC % 0, Sodium 137, Potassium 4.0, Chloride 103, Carbon Dioxide 24.3, Anion Gap 10, BUN 23 H, Creatinine 0.92, Est GFR (MDRD) Non-Af 61, BUN/Creatinine Ratio 24.8 H, Glucose 143 H, Calcium 9.2 Imaging Radiology Impression Pelvis X-Ray 05/07/25 07:21 IMPRESSION: A spiral FRACTURE of the distal left femoral shaft is seen, with some override also present. No intra-articular extension is clearly evident. 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 In visualized areas, no evidence of prosthesis loosening or metallic fracture is seen. Vascular stent is seen overlying the right femoral neck. Mild sacroiliac joint degenerative changes are noted. Prominent degenerative changes of the visualized lower lumbar spine are seen. [id number] degenerative changes of the visualized portions of the left knee. Reading Location: [address] Femur X-Ray 05/07/25 07:24 IMPRESSION: A spiral FRACTURE of the distal left femoral shaft is seen, with some override also present. No intra-articular extension is clearly evident. 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 In visualized areas, no evidence of prosthesis loosening or metallic fracture is seen. Vascular stent is seen overlying the right femoral neck. Mild sacroiliac joint degenerative changes are noted. Prominent degenerative changes of the visualized lower lumbar spine are seen. [id number] degenerative changes of the visualized portions of the left knee. Reading Location: [address] Assessment & Plan Assessment/Plan (1) Femoral distal fracture: QUALIFIERS: Encounter type: initial encounter Fracture type: c losed Laterality: left PLAN: Patient sustained a spiral left distal femoral shaft fracture. Isolated injury, closed injury. Recommend surgical invention in the form of left femur open reduction internal fixation. We discussed the procedure in detail. We discussed the need for weight limited weightbearing postoperatively. We discussed the risks, benefits, alternatives to the procedure. Risks include but are not limited to bleeding, infection, loss of life or limb, need for additional surgery, persistent pain, nonhealing bone or wounds, stiffness, neurovascular injury, DVT or PE, risk of anesthesia. Informed consent was obtained. Recommend delayed surgery until 05/09/2025 due to Eliquis therapy. Hold anticoagulant. Okay for heparin drip if deemed necessary due to recent DVT, defer to hospitalist. N.p.o. after midnight tomorrow night. Maintenance IV fluids. Ancef on-call to the OR.
[2025-05-07] MEDS: BRIMONIDINE 0.2% 5ML BOTTLE 1 DRP EACH EYE (18:22)
[2025-05-07] MEDS: Dorzolamide HCL/Timolol 10 ml Bottle 1 DRP EACH EYE (21:07)
[2025-05-07] MEDS: Heparin Injection (Vial) 5,000 UNIT/ML VIAL 5000 UNIT SC (21:08)
[2025-05-07] MEDS: Senna/Docusate Sodium 1 Tablet 2 TABLET PO (21:08)
[2025-05-07] MEDS: Latanoprost 0.005% 1 Bottle 1 DRP OPHTHALMIC (21:09)
[2025-05-08 01:00] VITALS: BP 110/56; PULSE 70; RESP 16; TEMP 36.3; O2SAT 100
--- NOTE | 2025-05-08 05:55 | EKG12_ITS ---
Test Reason : Pre-Op Blood Pressure : */* mmHG Vent. Rate : 77 BPM Atrial Rate : 77 BPM P-R Int : 200 ms QRS Dur : 94 ms QT Int : 414 ms P-R-T Axes : 80 42 86 degrees QTcB Int : 468 ms Normal sinus rhythm Normal ECG Confirmed by Regis Pratt ([id number]), web content editor SHERMAN AUGUST ([id number]) on 05/13/2025 8:35:20 AM Referred By: Karen Confirmed By: Regis Pratt
[2025-05-08 06:08] LABS: Hematocrit 28.0 % (37-47); Hemoglobin 9.5 g/dL (12.0-15.0); Immature Granulocytes Count 0.010 X10^3/uL (0.0-0.0); Mean Corp Hgb Conc 33.9 g/dL (32-36); Mean Corpuscular Volume 91.8 fL (81-99); Mean Platelet Vol. 10.7 fl (6.2-12.0); NRBC Flagged by Analyzer 0 % (0-5); Platelet Count 152 K/mm3 (150-450); RBC Distribution Width CV 13.4 % (11.6-14.6); RBC Distribution Width SD 45.3 fl (35.1-43.9); Red Blood Count 3.05 M/mm3 (4.2-5.4); White Blood Count 8.8 K/mm3 (4.4-11.0)
[2025-05-08 06:14] LABS: Prothrombin Time (Protime)PT. 15.5 SECONDS (11.7-14.9)
[2025-05-08 06:36] LABS: Anion Gap 12 (5-15); BUN 38 mg/dL (4-19); BUN/Creat Ratio 35.2 RATIO (10-20); Calcium,Total 9.0 mg/dL (7.6-11.0); Carbon Dioxide 21.1 mmol/L (21.0-32.0); Chloride 105 mmol/L (98-108); Estimated Creatinine Clearance 37.62 ml/min (50-250); Glucose 153 mg/dL (70-99); Potassium 4.0 mmol/L (3.3-5.1)
[2025-05-08 07:56] VITALS: O2SAT 94
[2025-05-08] MEDS: BRIMONIDINE 0.2% 5ML BOTTLE 1 DRP EACH EYE ×2 (09:47→17:39)
[2025-05-08] MEDS: Dorzolamide HCL/Timolol 10 ml Bottle 1 DRP EACH EYE ×2 (09:48→22:58)
[2025-05-08] MEDS: Senna/Docusate Sodium 1 Tablet 2 TABLET PO ×2 (09:49→22:59)
[2025-05-08 10:00] VITALS: BP 123/54; PULSE 74; RESP 16; TEMP 36.8; O2SAT 99
--- NOTE | 2025-05-08 10:55 | CASEMGMT ---
RN CM Face to Face with patient for initial transition planning/care coordination assessment. RN CM introduced self and role at [facility]. Patient lying in bed, alert and oriented. Patient willing to participate in assessment and is able to answer all questions appropriately. Care providers, pharmacy, and demographics verified. 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 LNOK: Friend [place] Living Arrangements: Patient lives alone in a raised ranch with 1 step and grab bar at home. Patient states she is independent at home. Transportation: self, friend. DME/HHC: Patient has raised toilet, cane, and grab bars at home. No previous HHC or SNF. Patient wishes to discharge to [facility] Acute Rehab or TCU vs WVM, declined RU and SNF list at this time. Patient to have surgery Saturday and CM will follow-up with referral on Saturday. Patient states she has no further needs or concerns at this time. CM to follow for discharge planning needs that may arise. Disposition Plan: Acute Rehab vs SNF pending surgery and therapy. Judith BEASLEY, RN, CM
[2025-05-08 17:58] VITALS: BP 130/63; PULSE 75; RESP 16; TEMP 36.6; O2SAT 100
--- NOTE | 2025-05-08 18:45 | PN.HOSP_ITS ---
Reason for Visit Reason for Visit: Diagnoses Unspecified fracture of lower end of unspecified femur, initial encounter for closed fracture (05/07/25) Subjective Subjective Patient was seen in exam today, she will be going for surgery in the morning to repair her left femur fracture. Patient has no specific complaints except for left leg pain Objective Data Objective Data Vital Signs: Vital Signs Temp Pulse Resp BP Pulse Ox O2 Del Method 97.9 F 75 16 130/63 H 100 Room Air 05/08/25 17:58 05/08/25 17:58 05/08/25 17:58 05/08/25 17:58 05/08/25 17:58 05/08/25 17:58 Oxygen Delivery Method Room Air Weight: 75.296 kg Body Mass Index (BMI) 27.1 Intake & Output: Intake and Output for Last 24 Hours 05/06/25 05/07/25 05/08/25 23:59 23:59 23:59 Intake Total 1300 / 1300 Output Total 250 / 250 500 / 500 Balance -250 / 50 800 / 800 Lab / Micro Data 05/08/25 05:45 05/08/25 05:45 Labs: Laboratory Results - last 24 hr 05/07/25 18:36: Blood Type AB POSITIVE, Antibody Screen NEGATIVE 05/08/25 05:45: WBC 8.8, RBC 3.05 L, Hgb 9.5 L, Hct 28.0 L, MCV 91.8, MCH 31.1, MCHC 33.9, RDW Std Deviation 45.3 H, RDW Coeff of Alex 13.4, Plt Count 152, MPV 10.7, Immature Gran % (Auto) 0.100, Neut % (Auto) 73.9 H, Lymph % (Auto) 15.4 L, Pierce % (Auto) 10.2 H, Eos % (Auto) 0.2, Baso % (Auto) 0.2, Absolute Neuts (auto) 6.5, Absolute Lymphs (auto) 1.35, Nucleated RBC % 0, PT 15.5 H, INR 1.2, Sodium 138, Potassium 4.0, Chloride 105, Carbon Dioxide 21.1, Anion Gap 12, BUN 38 H, Creatinine 1.09, Estim Creat Clear Calc 37.62 L, Est GFR (MDRD) Non-Af 49 L, B UN/Creatinine Ratio 35.2 H, Glucose 153 H, Calcium 9.0 Physical Exam Narrative alert, oriented x3, no apparent distress and healthy appearing Constitutional Narrative: Patient appears much younger than her stated age General Appearance: cooperative, well kempt and well developed Orientation / Consciousness: awake, oriented to person, oriented to place and oriented to time HEENT normocephalic, head/scalp atraumatic, hearing grossly normal bilaterally and moist oral mucous membranes Eyes PERRL, EOMs intact bilaterally and conjunctivae normal Neck supple, no JVD, thyroid normal and no carotid bruits General: trachea midline Resp normal respiratory effort, no retractions, no use of accessory muscles and clear to auscultation bilaterally Auscultation: Negative for rales, rhonchi or wheezes Cardio regular rate, regular rhythm, S1 normal heart sound, S2 normal heart sound, no murmurs, no rub and no gallops GI normal to inspection, nondistended, normoactive bowel sounds, soft to palpation, non-tender and non-distended Skin no rashes or lesions noted General Skin Exam: no breakdown Neuro oriented x3, CN's II-XII intact bilaterally, no focal motor deficits and no sensory deficits noted Sensorium / Orientation: awake and alert Speech: speech normal Psych affect normal Assessment & Plan Assessment/Plan (1) Femoral distal fracture: QUALIFIERS: Encounter type: initial encounter Fracture type: c losed Laterality: left PLAN: Plan 1. Left distal femur fracture secondary to osteoporosis-patient appears stable for surgery at this time #2 history of valvular heart disease with recent TAVR-patient appears medically stable #3 coronary artery disease-patient appears medically stable at this time, I will hold her Plavix for now #4 essential hypertension-patient will remain on her current medications #5 chronic use of anticoagulant-patient's Eliquis will be held for now because of her upcoming surgery tomorrow #6 glaucoma-patient will remain on her eyedrops #7 acute anemia secondary to left distal femur fracture-patient's hemoglobin this morning was 9.5, I will recheck her H&H in the morning. Total clinical time spent by myself addressing the patient's medical issues, reviewing all of her data, and collaborating with patient's care team: 35-minute Charges/Coding Visit Charges Inpatient E&M: 73288 Subs Hosp L2
[2025-05-08 22:45] VITALS: BP 123/56; PULSE 74; RESP 16; TEMP 36.9; O2SAT 100
[2025-05-08] MEDS: Heparin Injection (Vial) 5,000 UNIT/ML VIAL 5000 UNIT SC (22:58)
[2025-05-08] MEDS: Latanoprost 0.005% 1 Bottle 1 DRP OPHTHALMIC (22:58)
[2025-05-09] VITALS (17 sets, daily range): BP systolic 105–138; BP diastolic 42–96; PULSE 62–85; RESP 16–18; TEMP 36.2–37.2; O2SAT 93–100; BMI 27.3
[2025-05-09 07:17] LABS: Hematocrit 25.3 % (37-47); Hemoglobin 8.5 g/dL (12.0-15.0)
--- NOTE | 2025-05-09 07:40 | PCM.PRE.AN2 ---
ASA Classification* ASA Classification ASA Classification: 3 and E Assessment & Plan Anesthesia* Anesthesia Assessment Anesthesia Assessment: Discussed sedation and/or anesthesia options, risks, benefits, and alternatives with patient/parents/legal guardian/POA. Questions invited. The patient/parents/legal guardian/POA seems to understand and agrees to proceed with anesthesia plan. Reviewed the physical assessment, medical history, allergy history and patient home medications list prior to surgery/procedure/anesthetic and documented any changes. Performed airway and anesthesia risk assessments. Anesthesia Type Anesthesia Type: General (ET TUBE, Severe3 Aortic stenosis) Anesthesia Focused Assessment* Temperature: 97.7 F Pulse Rate: 62 Blood Pressure: 138/58 Respiratory Rate: 16 Pulse Ox: 100 Airway Assessment Mouth opens: >3 cm Mallampati Score: II Labs Anesthesia Preop lab: CBC WBC 8.8 K/mm3 (4.4-11.0) 05/08/25 05:45 05/08/25 RBC 3.05 M/mm3 (4.2-5.4) L 05/08/25 05:45 05/08/25 Hgb 8.5 g/dL (12.0-15.0) L 05/09/25 06:45 05/09/25 Hct 25.3 % (37-47) L 05/09/25 06:45 05/09/25 Plt Count 152 K/mm3 (150-450) 05/08/25 05:45 05/08/25 CHEMISTRY Potassium 4.0 mmol/L (3.3-5.1) 05/08/25 05:45 05/08/25 Sodium 138 mmol/L (133-145) 05/08/25 05:45 05/08/25 Magnesium 1.7 mg/dL (1.6-2.6) 11/25/17 21:04 11/25/17 BUN 38 mg/dL (4-19) H 05/08/25 05:45 05/08/25 Creatinine 1.09 mg/dL (0.70-1.20) 05/08/25 05:45 05/08/25 Glucose 153 mg/dL (70-99) H 05/08/25 05:45 05/08/25 POC Glucose 106 mg/dL (70-110) 11/28/17 11:33 11/28/17 TSH 1.610 uIU/mL (0.300-4.200) 03/31/25 13:44 03/31/25 COAG PT 15.5 SECONDS (11.7-14.9) H 05/08/25 05:45 05/08/25 Pre-Assessment Diagnosis/Proposed Procedure Planned Operative Procedure(s): ORIF Distal femur fracture Anesthesia History Anesthesia History - enamel buffer: Anesthesia History - enamel buffer Hx Hospitalization Any Problems With Anesthesia No 05/08/25 22:56 Cholinesterase deficiency No 05/08/25 22:56 You/Your Family Experience No 05/08/25 22:56 fever (hyperthermia) with Relationship Recent Exposure to Contagious No 05/08/25 22:56 Disease Does patient have nerve No 05/08/25 22:56 stimulator Patient instructed to have No 05/08/25 22:56 device shut off --Does patient have Pacemaker No 05/09/25 06:27 or ICD? When Was Last Pacemaker Check QUESTION #4 FULL TEXT: You/Your Family Experience fever (hyperthermia) with Anesthesia Last Oral Intake Last Oral intake: Last Oral Intake NPO since 00:00 05/09/25 06:27 Meds taken in AM with sips of No 05/09/25 06:27 water? Meds patient instructed to take am of surgery PONV PONV - enamel buffer: PONV - enamel buffer Female HX of Motion Sickness HX of N/V After Surgery Non-Smoker Duration of Surgery greater than 60 minutes Number of Risk Factors PONV Score Height & Weight Height & Weight: Anesthesia: Height & Weight Height 5 ft 5.5 in 05/09/25 06:27 Weight: 75.6 kg 05/09/25 06:27 Body Mass Index (BMI) 27.3 05/09/25 06:27 Respiratory Assessment Respiratory Assessment - enamel buffer: Respiratory Tract Infection Hx - enamel buffer Hx Respiratory Tract Infection No 05/08/25 22:56 STOP Sleep Apnea STOP Sleep Apnea - enamel buffer: STOP Sleep Apnea - enamel buffer Hx Hypertension No 05/09/25 07:11 Hx Sleep Apnea No 05/07/25 15:30 CPAP BIPAP Do you snore loudly (louder No 05/07/25 15:30 than talking or can be heard Do you often feel tired/ Yes 05/07/25 15:30 fatigued/ sleepy during daytime? Has anyone observed you stop No 05/07/25 15:30 breathing during sleep? STOP Results Negative 05/07/25 15:30 QUESTION #5 FULL TEXT : Do you snore loudly (louder than talking or can be heard through closed doors)? Tobacco Use History Tobacco Use History - enamel buffer: Tobacco Use History - enamel buffer Tobacco Use Smoking Status Never smoker 05/07/25 15:30 Hx Tobacco Use No 05/07/25 15:30 Years Smoking Packs Smoked per Day Smoking Cessation Date was within the last 15 years Hx Smoking Cessation Date Hx Smoking Cessation Counseling Hematologic Medial History Hematologic Hx - enamel buffer: Hematologic Medical Hx - blood splatter analyst Hx of Blood Transfusion No 05/07/25 15:30 Hx of Transfusion in last 3 No 05/07/25 15:30 Months Date of Last Transfusion (if within last 3 months) Ever experience any problems No 05/07/25 15:30 with transfusion(s)? Specify any problems Hx of Preganancy in last 3 N/A 05/07/25 15:30 Months Nurse Filling Out Transfusion [id number] 05/07/25 15:30 & Questions: Date: 05/07/25 05/07/25 15:30 Time: 15:50 05/07/25 15:30 Patient unable to answer at this time (ie. confused, unrespo /Reproduction History /Reproductive History - enamel buffer: /Reproductive Hx- enamel buffer Hx Now No 05/08/25 22:56 Gestational Age (in weeks): EDC: Hx Hx Para Hx Section SAB No 05/08/25 22:56 Active Medications Active Medications: Current Medications Generic Name Dose Route Start Last Admin Trade Name Freq PRN Reason Stop Dose Admin Acetaminophen 650 mg 05/07/25 15:28 Acetaminophen 325 Mg Tablet PO Q6H PRN PRN Pain 1-10 Or Fever >100.7 Aspirin 81 mg 05/08/25 08:00 05/08/25 09:51 Aspirin 81 Mg Tab.Chew PO Not Given BREAKFAST ROBE Atorvastatin Calcium 40 mg 05/07/25 22:00 05/08/25 22:59 Atorvastatin Calcium 40 Mg Tablet PO Not Given QHS ROBE Brimonidine Tartrate 1 drp 05/07/25 22:00 05/08/25 17:39 Brimonidine 0.2% 5ml Bottle EACH EYE 1 drp BID ROBE Administration Carvedilol 12.5 mg 05/07/25 17:00 05/08/25 17:38 Carvedilol 12.5 Mg Tablet PO 12.5 mg BIDCM ROBE Administration Protocol Dorzolamide/Timolol 1 drp 05/07/25 22:00 05/08/25 22:58 Dorzolamide Hcl/Timolol 10 Ml Bottle EACH EYE 1 drp BID ROBE Administration Heparin Sodium (Porcine) 5,000 unit 05/07/25 22:00 05/08/25 22:58 Heparin Injection (Vial) 5,000 Unit/Ml Vial SC 5,000 unit Q12 ROBE Administration Hydromorphone HCl 0.5 - 1 mg 05/07/25 15:28 Hydromorphone 1 Mg/Ml Syringe IV Q3H PRN PRN Pain Score 6-10 Sodium Chloride 250 mls @ 15 mls/hr 05/07/25 16:06 IV .[id number] PRN Saline Flush Sodium Chloride 250 mls @ 15 mls/hr 05/07/25 16:06 IV .[id number] PRN Additional IVPB Infusion Sodium Chloride 250 mls @ 15 mls/hr 05/08/25 17:50 IV .[id number] PRN Saline Flush Sodium Chloride 250 mls @ 15 mls/hr 05/08/25 17:50 IV .[id number] PRN Additional IVPB Infusion Latanoprost 1 drp 05/07/25 22:00 05/08/25 22:58 Latanoprost 0.005% 1 Bottle OPHTHALMIC 1 drp QHS ROBE Administration Losartan Potassium 25 mg 05/08/25 10:00 05/08/25 09:48 Losartan Potassium 25 Mg Tablet PO 25 mg DAILY ROBE Administration Protocol Ondansetron HCl 4 mg 05/07/25 15:28 Ondansetron 4 Mg/2 Ml Vial IV Q8H PRN PRN NAUSEA/VOMITING Oxycodone HCl 10 mg 05/07/25 15:28 Oxycodone 5 Mg Tablet PO Q4H PRN PRN Pain Score 4-10 Senna/Docusate Sodium 2 tablet 05/07/25 22:00 05/08/25 22:59 Senna/Docusate Sodium 1 Tablet PO 2 tablet BID ROBE Administration Sodium Chloride 10 - 40 ml 05/07/25 16:06 0.9% Saline Lock 10 Ml Syringe IV UD PRN SALINE FLUSH Sodium Chloride 10 - 40 ml 05/08/25 17:50 0.9% Saline Lock 10 Ml Syringe IV UD PRN SALINE FLUSH Temazepam 30 mg 05/07/25 22:00 05/08/25 23:06 Temazepam 15 Mg Capsule PO 30 mg QHS PRN Administration SLEEP PFSH Medical History Laceration of leg Closed head injury Abrasions of multiple sites Laceration of lip Pure hypercholesterolemia Nonrheumatic aortic (valve) stenosis Non-ST elevation (NSTEMI) myocardial infarction 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 Essential hypertension Seborrheic keratosis Generalized weakness Fall Home Medications ?Medication ?Instructions ?Recorded ?Last Taken ?Type brimonidine 0.2 % eye drops 2 drp EACH EYE BID glaucoma 11/25/17 11/25/17 History dorzolamide 22.3 mg-timolol 6.8 1 drp EACH EYE BID glaucoma 11/25/17 11/25/17 History mg/mL eye drops latanoprost 0.005 % eye drops 1 drp ophthalmic (eye) QPM 12/17/19 Unknown History carvedilol 12.5 mg tablet 12.5 mg PO BID #180 tabs 11/03/24 Unknown Rx apixaban 5 mg tablet (Eliquis) 5 mg PO BID 05/07/25 Unknown History clopidogrel 75 mg tablet 75 mg PO DAILY 05/07/25 Unknown History temazepam 30 mg capsule 30 mg PO DAILY 05/07/25 Unknown History valsartan 160 mg tablet 80 mg PO DAILY 05/07/25 Unknown History Allergy/AdvReac Type Severity Reaction Status Date / Time No Known Allergies Allergy Verified 03/16/24 14:09 Family History Father Diabetes Grandmother Colon cancer Surgical History History of left heart catheterization (LHC) (~12/27/17) History of bilateral hip replacements Social History Smoking Status: Never smoker alcohol intake: current alcohol intake frequency: holidays/special occasions only Alcohol type: wine substance use type: does not use caffeine: Yes Type: coffee what type of physical activity do you participate in: none seatbelt use: always do you feel safe at home: Yes Review of Systems (Anesthesia) ROS Narrative System reviewed and no additional complaints, except as documented.
--- NOTE | 2025-05-09 08:00 | RAD_ITS ---
PROCEDURE: FEMUR MIN 2 VIEWS 05/09/2025 REASON FOR EXAM: ORIF DISTAL FEMUR TECHNIQUE: FEMUR MIN 2 VIEWS FINDINGS: 8 intraoperative images demonstrate fluoroscopic assistance provided in the operating room for internal fixation of the femur with side plate and multiple screws RAD/Femur Min 2 Views IMPRESSION: Anatomic alignment Reading Location: [facility]
[2025-05-09] MEDS: Cefazolin 2 GM in 0.9% Normal Saline (100mL Bag) 100 ML IV ×3 (08:28→21:45)
--- NOTE | 2025-05-09 09:12 | NURSING ---
Taken to surgery at 0740.
[2025-05-09] MEDS: Bupiv/Epi 0.25% 30 ML Vial (10:20)
--- NOTE | 2025-05-09 10:51 | PCM.POST.ANE ---
Anesthesia: Postop Eval I Current Vital Signs Temperature: 97.7 F Pulse Rate: 75 Blood Pressure: 137/48 Respiratory Rate: 16 Pulse Ox: 100 Oxygen Delivery Method: Room Air Assessment Airway patent: Yes Spontaneous unlabored respirations: Yes Mental status: Awake and Calm nausea: No Vomiting: No Anesthesia Complication: No Fluid Hydration Crystalloid volume administer (ml): 700 Blood Product volume administered (ml): 1 Total IV fluid infused: 701 Progress Note Post-operative progress note: 1 unit prbc intra op Anesthesia document: Postop Eval 1 completed: Yes
--- NOTE | 2025-05-09 10:52 | PCM.POSTANE2 ---
Anesthesia Postop Eval I Sum Postop Eval Completion status Anesthesia document: Postop Eval 1 completed: Yes Anesthesia Postop Eval I Summary Anesthesia Postop Eval I Summary: Anesthesia Postop Eval I: Assessment Summary Airway patent Yes 05/09/25 10:52 Spontaneous unlabored Yes 05/09/25 10:52 respirations Mental status Awake,Calm 05/09/25 10:52 nausea No 05/09/25 10:52 Vomiting No 05/09/25 10:52 Anesthesia Postop Eval I: Fluid Summary Crystalloid volume administer 700 05/09/25 10:52 (ml) Colloids volume administered ( ml) Blood Product volume 1 05/09/25 10:52 administered (ml) Total IV fluid infused 701 05/09/25 10:52 Anesthesia Postop Eval I: Summary Notes Anesthesia Complication No 05/09/25 10:52 Anesthesia Complication Comment: Post-operative progress note 1 unit prbc intra 05/09/25 10:52 op Anesthesia: Postop Eval II Evaluation Mental status: Awake Pain Level: 0 nausea: No Vomiting: No
--- NOTE | 2025-05-09 11:01 | OP.PCM_ITS ---
Operative Report (Standard) Operative Information Date of Procedure: 05/09/25 Pre-Operative Diagnosis: Left distal femoral shaft spiral fracture Post-Operative Diagnosis: Left distal femoral shaft spiral fracture Surgery/Procedure Performed: Open reduction internal fixation left femoral shaft environmental sampling technician: Yes Lab Head: Samantha Ordaz Tasks completed by acute care certified nursing assistant: Opening & closing, Implanting device, Hemostas is: Electrocautery and Retracting Additional catering administrative assistant?: No Type of Anesthesia: General RN Documented Start/Stop Times: Operation Date: 05/09/25 08:20 Case Time Anesthesia Start 05/09/25 07:59 Into Room 05/09/25 07:59 Procedure Start 05/09/25 08:32 Procedure End 05/09/25 10:42 Anesthesia End 05/09/25 10:47 Out of Room 05/09/25 10:47 Into Recovery 05/09/25 10:50 Procedure Start Time: 08:32 Procedure Stop Time: 10:42 Select all DRAINS/GRAFTS/IMPLANTS that apply: Implanted device Implanted device details: [place] Brian Pro 4.5 mm distal femur plate 355 mm left, combination of cortical and locking screws, [place] cerclage cables x 3 Estimated Blood Loss: 400 cc Specimen collected: No Description of surgery: Patient was identified in the preoperative holding area by name, medical record number, and date of . The operative extremity was marked. All questions were answered the patient's satisfaction. At time of her procedure, patient was brought to the operative suite and positioned supine on a standard operating table. General anesthesia was induced and endotracheal tube placed. All bony prominences were well-padded. Patient was then placed in a sloppy lateral position and held in place with a beanbag. Left arm was brought across patient's chest. We prepped and draped the left lower extremity in a normal, sterile orthopedic fashion. A timeout was performed confirming the side, site, and operation to be performed. No concerns were voiced and we elected to proceed with surgery. 2 g Ancef was administered IV prior to the incision by anesthesia staff. 1 unit packed red blood cells was also administered intraoperatively due to preoperative anemia and anticipated blood loss. A standard lateral approach to the femur was performed with full-thickness skin flaps developed down to the level of the IT band. Incision was made from the lateral epicondyle to just distal to the greater trochanter. Bleeders were cauterized. IT band was then opened in line with the incision. Vastus lateralis was carefully elevated from the lateral intermuscular septum cauterizing any perforating vessels. Fracture site was identified. Hematoma was evacuated. Fracture was irrigated. I then had my catering administrative assistant pull traction on the leg while I applied multiple clamps and was able to achieve an anatomic reduction. I then proceeded with placement of 3 cerclage cables for provisional fixation. These were passed, tensioned and crimped in standard fashion. Tails were then cut flush with the button. I then selected an appropriately sized plate to allow appropriate bypass of the left total hip arthroplasty stem. I compressed the plate to bone with a provisional fixation device proximall and a cancellous screw distally. Acceptable reduction was again confirmed. I then filled the distal cluster with locking screws in standard fashion.Proximally, I placed a bicortical locking screw just distal to the tip of the femoral stem. I was able to drill a bicortical screw in the midportion of the diaphyseal portion of the stem. 2 unicortical locking screws were also placed proximally. Fracture was stable. Wound was irrigated with normal saline solution. Hemostasis was excellent at this time. Field block was administered with 60 cc total 0.25% bupivacaine with epinephrine. The IT band fascia was closed watertight with running, locking barbed #1 strata fix suture. Interrupted [id number] 0 Vicryl suture was used to reapproximate the fatty layer. Dermis was reapproximated with buried 2-0 Vicryl suture. Skin was finally reapproximated with lakeisha. Silver Mepilex dressing was applied as well as a Alan wrap. Patient was awakened from anesthesia and extubated in the operative suite without difficulty. She was transferred to her hospital bed and subsequently to PACU in stable condition. She tolerated the procedure well without apparent complication. Postoperative plan: CBC ordered in PACU, possible additional unit of packed red blood cells will be considered Nonweightbearing left lower extremity x 6 weeks. Active range of motion as tolerated the left knee. PT/OT ordered Restart Eliquis postoperative day #1. Plan for 6 weeks postoperative Eliquis therapy. Patient will need placement. Dry sterile dressing changes as needed for saturation. Follow-up at [facility] in 2 weeks for x-rays, staple removal and wound assessment. Plan of care discussed with attending hospitalist. Surgical Findings: Long spiral distal third femoral shaft fracture. Stable following fixation. Complications Complications: No Admit VTE Documentation VTE Present on Admission: Yes VTE Pharm Prophylaxis ordered?: Yes
[2025-05-09 11:41] LABS: Hematocrit 27.9 % (37-47); Hemoglobin 9.2 g/dL (12.0-15.0); Mean Corp Hgb Conc 33.0 g/dL (32-36); Mean Corpuscular Volume 92.4 fL (81-99); Mean Platelet Vol. 11.1 fl (6.2-12.0); Platelet Count 116 K/mm3 (150-450); RBC Distribution Width CV 13.7 % (11.6-14.6); RBC Distribution Width SD 46.4 fl (35.1-43.9); Red Blood Count 3.02 M/mm3 (4.2-5.4); White Blood Count 9.0 K/mm3 (4.4-11.0)
--- NOTE | 2025-05-09 16:13 | PCM.PN.HOSP ---
Reason for Visit Chief Complaint: Left leg injury, inability to ambulate Subjective Subjective Patient was seen and examined today, she underwent ORIF of her left femur fracture, hemoglobin was low this morning at 8, I typed and crossed 2 units of blood and 1 unit was given by orthopedic surgery. Objective Data Objective Data Vital Signs: Vital Signs Temp Pulse Resp BP Pulse Ox O2 Del Method 97.1 F L 77 18 131/42 H 98 Room Air 05/09/25 13:38 05/09/25 13:38 05/09/25 13:38 05/09/25 13:38 05/09/25 13:38 05/09/25 13:38 Oxygen Delivery Method Room Air Weight: 75.6 kg Body Mass Index (BMI) 27.3 Intake & Output: Intake and Output for Last 24 Hours 05/07/25 05/08/25 05/09/25 23:59 23:59 23:59 Intake Total 1300 / 1300 500 / 500 Output Total 250 / 250 500 / 800 950 / 950 Balance -250 / 50 800 / 500 -450 / -450 Lab / Micro Data 05/09/25 11:25 05/08/25 05:45 Labs: Laboratory Results - last 24 hr 05/07/25 18:36: Crossmatch See Detail 05/09/25 06:45: Hgb 8.5 L, Hct 25.3 L 05/09/25 11:25: WBC 9.0, RBC 3.02 L, Hgb 9.2 L, Hct 27.9 L, MCV 92.4, MCH 30.5, MCHC 33.0, RDW Std Deviation 46.4 H, RDW Coeff of Alex 13.7, Plt Count 116 L, MPV 11.1 Radiography Diagnostic Testing: Radiology Impression Femur X-Ray 05/09/25 08:00 IMPRESSION: Anatomic alignment Reading Location: [facility] Physical Exam Narrative alert, oriented x3, no apparent distress and healthy appearing Constitutional Narrative: Patient appears much younger than her stated age General Appearance: cooperative, well kempt and well developed Orientation / Consciousness: awake, oriented to person, oriented to place and oriented to time HEENT normocephalic, head/scalp atraumatic, hearing grossly normal bilaterally and moist oral mucous membranes Eyes PERRL, EOMs intact bilaterally and conjunctivae normal Neck supple, no JVD, thyroid normal and no carotid bruits General: trachea midline Resp normal respiratory effort, no retractions, no use of accessory muscles and clear to auscultation bilaterally Auscultation: Negative for rales, rhonchi or wheezes Cardio regular rate, regular rhythm, S1 normal heart sound, S2 normal heart sound, no murmurs, no rub and no gallops GI normal to inspection, nondistended, normoactive bowel sounds, soft to palpation, non-tender and non-distended Skin no rashes or lesions noted General Skin Exam: no breakdown Neuro oriented x3, CN's II-XII intact bilaterally, no focal motor deficits and no sensory deficits noted Sensorium / Orientation: awake and alert Speech: speech normal Psych affect normal Assessment & Plan Assessment/Plan (1) Femoral distal fracture: QUALIFIERS: Encounter type: initial encounter Fracture type: closed Laterality: left PLAN: Plan 1. Left distal femur fracture secondary to osteoporosis-postop day 0 open reduction internal fixation of left femoral shaft, PT and OT will continue, patient may need short-term stay in a intermediate facility for rehab services #2 history of valvular heart disease with recent TAVR-patient appears medically stable #3 coronary artery disease-patient appears medically stable at this time, I will hold her Plavix for now #4 essential hypertension-patient will remain on her current medications #5 chronic use of anticoagulant-patient's Eliquis will be restarted tomorrow #6 glaucoma-patient will remain on her eyedrops #7 acute anemia secondary to left distal femur fracture-patient's hemoglobin this morning was 9.5, I will recheck her H&H in the morning. Total clinical time spent by myself addressing the patient's medical issues, reviewing all of her data, and collaborating with patient's care team: 35-minute Charges/Coding Visit Charges Inpatient E&M: 90906 Subs Hosp L2
[2025-05-09] MEDS: Dorzolamide HCL/Timolol 10 ml Bottle 1 DRP EACH EYE (21:42)
[2025-05-09] MEDS: BRIMONIDINE 0.2% 5ML BOTTLE 1 DRP EACH EYE (21:42)
[2025-05-09] MEDS: Latanoprost 0.005% 1 Bottle 1 DRP OPHTHALMIC (21:42)
[2025-05-09] MEDS: Senna/Docusate Sodium 1 Tablet 2 TABLET PO (21:44)
[2025-05-09] MEDS: 0.9% Saline Lock 10 ML Syringe IV (21:49)
[2025-05-10] VITALS (11 sets, daily range): BP systolic 76–138; BP diastolic 36–67; PULSE 71–79; RESP 16–18; TEMP 36.7–37.2; O2SAT 94–100
[2025-05-10] MEDS: Cefazolin 2 GM in 0.9% Normal Saline (100mL Bag) 100 ML IV (05:58)
[2025-05-10] MEDS: BRIMONIDINE 0.2% 5ML BOTTLE 1 DRP EACH EYE ×2 (08:09→22:13)
[2025-05-10] MEDS: Dorzolamide HCL/Timolol 10 ml Bottle 1 DRP EACH EYE ×2 (08:09→22:14)
[2025-05-10] MEDS: Senna/Docusate Sodium 1 Tablet 2 TABLET PO ×2 (08:10→22:14)
[2025-05-10] MEDS: APIXABAN 5 MG TABLET PO ×2 (08:10→22:14)
--- NOTE | 2025-05-10 09:24 | CT_ITS ---
PROCEDURE: STROKE BRAIN/HEAD WITHOUT CONT 05/10/2025 REASON FOR EXAM: LEFT FACIAL DROOP TECHNIQUE: STROKE BRAIN/HEAD WITHOUT CONT Coronal and Sagittal reconstruction series were provided. One or more dose reduction techniques were used (e.g., Automated exposure control, adjustment of the mA and/or kV according to patient size, use of iterative reconstruction technique. RADIATION DOSE SUMMARY: CTDlvol: 44.99 mGy DLP: 812.98 mGycm COMPARISON: Prior study dated May 23, 2021. FINDINGS: Brain: Low density in the periventricular white matter suggests mild chronic small vessel ischemic changes. 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 Mild cerebellar atrophy. CSF Spaces: Mild generalized cerebral atrophy Sinuses/Mastoids: Clear at visualized levels Bones: Unremarkable CT/STROKE Brain/Head without Cont IMPRESSION: CHRONIC CHANGES. NO ACUTE FINDINGS. Reading Location: [place] [id number]
--- NOTE | 2025-05-10 09:35 | CT_ITS ---
PROCEDURE: STROKE CTA HEAD AND NECK W/CON 05/10/2025 REASON FOR EXAM: NEURO SX TECHNIQUE: STROKE CTA HEAD AND NECK W/CON Multiplanar Sagittal and Coronal images were obtained. CONTRAST: Isovue 370 VOLUME: 100 mL One or more dose reduction techniques were used (e.g., Automated exposure control, adjustment of the mA and/or kV according to patient size, use of iterative reconstruction technique). RADIATION DOSE SUMMARY: CTDlvol: 19 mGy DLP: 640.44 mGycm COMPARISON: None FINDINGS: Aortic Arch: Normal size and branching pattern. Mild atherosclerotic plaque. Brachiocephalic and Subclavians: Mild atherosclerotic plaque without significant stenosis. RIGHT Carotid: Right CCA: Unremarkable. Right ICA: Moderate calcified and soft plaque. Maximum stenosis (NASCET): > 70 % Right ECA: Unremarkable. LEFT Carotid: Left CCA: Unremarkable. Left ICA: Moderate calcified and soft plaque. Maximum stenosis (NASCET): 60 % Left ECA: Unremarkable. Vertebrals: Codominant. Arise from the subclavians. Both vertebrals form the basilar. RIGHT Vertebral: Unremarkable. LEFT Vertebral: Unremarkable. Anatomy: [place] anatomy is normal. Atherosclerotic calcific plaques of the cavernous portions of the internal carotid arteries bilaterally. Aneurysm or avm: No intracranial aneurysms or large vascular malformations are identified. Anterior cerebral arteries: Unremarkable: Middle cerebral arteries: Unremarkable. Basilar artery: Unremarkable. Posterior cerebral arteries: Unremarkable. Other major branches of the posterior circulation: Unremarkable. Major venous structures: Unremarkable. CT/STROKE CTA Head AND Neck W/Con IMPRESSION: Atherosclerotic calcific plaques at the origin of the right and left internal c arotid arteries as described. Red Alert: Nothing acute The critical information above was relayed directly by me by telephone to Sourav Beck on 05/10/2025 at 9:55 am with readback verification. Reading Location: [place] [address]
--- NOTE | 2025-05-10 10:09 | PN.ORTHO_ITS ---
Subjective Subjective Patient seen and examined. Stroke alert called due to facial droop. Earlier this morning and CT scans performed. Stroke alert was evidently canceled by hospitalist. Hospitalist is aware. She reports soreness in her left flank. Denies any numbness or tingling. Denies fevers, chills, nausea or vomiting, chest pain or shortness of breath. Objective Data Objective Data Vital Signs: Vital Signs Temp Pulse Resp BP Pulse Ox O2 Del Method 98.4 F 74 18 126/44 H 94 Room Air 05/10/25 08:00 05/10/25 08:00 05/10/25 08:00 05/10/25 08:00 05/10/25 08:07 05/10/25 08:07 Oxygen Delivery Method Room Air Weight: 166 lb 10.711 oz Body Mass Index (BMI) 27.3 Intake & Output: Intake and Output for Last 24 Hours 05/08/25 05/09/25 05/10/25 23:59 23:59 23:59 Intake Total 1300 / 1300 890 / 890 110 / 110 Output Total 500 / 800 1275 / 1475 200 / 200 Balance 800 / 500 -385 / -585 -90 / -90 Lab / Micro Data 05/09/25 11:25 05/08/25 05:45 Labs: Laboratory Results - last 24 hr 05/07/25 18:36: Crossmatch See Detail 05/09/25 11:25: WBC 9.0, RBC 3.02 L, Hgb 9.2 L, Hct 27.9 L, MCV 92.4, MCH 30.5, MCHC 33.0, RDW Std Deviation 46.4 H, RDW Coeff of Alex 13.7, Plt Count 116 L, MPV 11.1 05/10/25 09:22: POC Glucose 158 H Radiography Diagnostic Testing: Radiology Impression Femur X-Ray 05/09/25 08:00 IMPRESSION: Anatomic alignment Reading [facility] Head/Neck CTA 05/10/25 09:35 IMPRESSION: Atherosclerotic calcific plaques at the origin of the right and left internal carotid arteries as described. Red Alert: Nothing acute The critical information above was relayed directly by me by telephone to Sourav Casiano on 05/10/2025 at 9:55 am with readback verification. Reading Location: [facility] Physical Exam Narrative Alert and oriented x 3, no acute distress. Left-sided facial droop noted. Left lower extremity: Incisional dressing clean dry and intact. No ecchymosis noted. Compartments are soft and compressible. DF, PF, EHL 5/5. DP 2+, brisk cap refill to toes. Sensation intact light touch throughout. Calf is soft nontender. Assessment & Plan Assessment/Plan (1) Femoral distal fracture: QUALIFIERS: Encounter type: initial encounter Fracture type: c losed Laterality: left PLAN: POD# 1 s/p left femur ORIF -Morning H&H pending - Pain control - Medicine following for medical management, defer to medicine regarding further workup with new onset facial droop. - PT/OT -nonweightbearing left lower extremity, active range of motion as tolerated left knee and hip. - DVT PPX -restart home Eliquis and early mobilization -Will need placement. - Case management - D/C planning
[2025-05-10 10:59] LABS: Hematocrit 23.4 % (37-47); Hemoglobin 8.0 g/dL (12.0-15.0)
--- NOTE | 2025-05-10 12:16 | NURSING ---
construction analyst got pt up to BSC with assistance. After sitting on toilet, pt became unresponsive. RN and inspector conveyor line into room, along with Lara RN and Faith RN, and transferred pt back to bed. While transferring, pt woke up. Pt denies feeling dizzy before passing out. BP 92/47, HR 76 and 99% on RA. Dr Casiano in room once pt back in bed, aware of incident. Will continue to monitor
--- NOTE | 2025-05-10 13:23 | NURSING ---
Stroke alert cancelled after Dr. Casiano talked to family, states symptoms are normal for patient
--- NOTE | 2025-05-10 15:23 | EKG12_ITS ---
Test Reason : other Blood Pressure : */* mmHG Vent. Rate : 76 BPM Atrial Rate : 76 BPM P-R Int : 208 ms QRS Dur : 94 ms QT Int : 398 ms P-R-T Axes : 76 31 118 degrees QTcB Int : 447 ms Normal sinus rhythm ST & T wave abnormality, consider lateral ischemia Abnormal ECG When compared with ECG of 27-Nov-2017 05:34, Nonspecific T wave abnormality, worse in Inferior leads T wave inversion now evident in Lateral leads Confirmed by Regis Pratt ([id number]), mapping editor SHERMAN AUGUST ([id number]) on 05/12/2025 11:36:28 AM Referred By: Confirmed By: Regis Pratt
[2025-05-10] MEDS: 0.9% Normal Saline (1000mL) 1,000 ML 999 ML IV (15:48)
--- NOTE | 2025-05-10 15:51 | CASEMGMT ---
Social Work- SW met with pt to confirm interest in referral to [facility] as [facility]. Pt reports that she's not sure how much therapy she can do today. Pt had stroke alert called prior; SW awaiting imaging for determination. SW attempted to meet with pt again to have discussion regarding discharge planning. Pt unable to hold conversation, speech deprivation and slurring words. Bedside nurse informed. SW remains available to follow. JONO Patrick
--- NOTE | 2025-05-10 16:26 | NURSING ---
This RN was called in to pt room by CLIFFORD Willis stating that pt was very lethargic. Pt was arousable but did not respond to questions appropriately and seemed very drowsy. BP was 76/67 HR 71. Pt could not tell this Rn where she was. Dr Casiano aware and ordered troponin series, stat labs, EKG, and bolus of NS and NS 125/hr. Pt's friend brought in pt a smoothie and pt drank smoothie and reports feeling much better. Will continue to monitor and will administer fluids/check BP.
[2025-05-10] MEDS: 0.9% Normal Saline (1000mL) 1,000 ML 125 ML IV (16:51)
[2025-05-10 17:01] LABS: Hematocrit 23.2 % (37-47); Hemoglobin 7.9 g/dL (12.0-15.0); Immature Granulocytes Count 0.050 X10^3/uL (0.0-0.0); Mean Corp Hgb Conc 34.1 g/dL (32-36); Mean Corpuscular Volume 91.7 fL (81-99); Mean Platelet Vol. 10.9 fl (6.2-12.0); NRBC Flagged by Analyzer 0 % (0-5); POSITIVE DIFFERENTIAL YES; Platelet Count 127 K/mm3 (150-450); RBC Distribution Width CV 14.0 % (11.6-14.6); RBC Distribution Width SD 46.9 fl (35.1-43.9); Red Blood Count 2.53 M/mm3 (4.2-5.4); White Blood Count 14.4 K/mm3 (4.4-11.0)
[2025-05-10 17:08] LABS: Differential Indicated SCAN CRITERIA MET
[2025-05-10 17:22] LABS: Troponin T High Sensitivity 36 ng/L (<=14)
--- NOTE | 2025-05-10 18:22 | PCM.PN.HOSP ---
Reason for Visit Chief Complaint: Left leg injury, inability to ambulate Subjective Subjective Patient was seen and examined today, physical therapy felt that the patient had slurred speech and left-sided weakness as well as a left facial droop, a stroke team was initially called on the patient, however, I talked with the patient's friend by telephone and she confirmed that the patient has had a left facial droop for quite some time. Patient's stroke team was canceled, patient underwent a CTA of the head and neck as well as a CT of the brain-these imaging studies were unremarkable. Later on in the afternoon, patient's blood pressure declined, I ordered labs which showed an elevated white blood cell count, I elected to place the patient on IV antibiotics for possible infection and patient's hemoglobin on the CBC was 7.9 which was essentially unchanged from this morning's hemoglobin. Nursing stated that shortly after the patient was complaining that she wanted to , she was seen sitting in her room sipping a frozen drink and did not appear to be in any distress. I have ordered a UA on the patient and will obtain labs in the morning on the patient. Objective Data Objective Data Vital Signs: Vital Signs Temp Pulse Resp BP Pulse Ox O2 Del Method 98.1 F 72 18 110/36 L 100 Room Air 05/10/25 15:20 05/10/25 16:50 05/10/25 15:20 05/10/25 16:50 05/10/25 15:20 05/10/25 15:20 Oxygen Delivery Method Room Air Weight: 75.6 kg Body Mass Index (BMI) 27.3 Intake & Output: Intake and Output for Last 24 Hours 05/08/25 05/09/25 05/10/25 23:59 23:59 23:59 Intake Total 1300 / 1300 890 / 890 1110 / 1110 Output Total 500 / 800 1275 / 1475 200 / 200 Balance 800 / 500 -385 / -585 910 / 910 Lab / Micro Data 05/10/25 15:51 05/08/25 05:45 Labs: Laboratory Results - last 24 hr 05/10/25 08:29: Hgb 8.0 L, Hct 23.4 L 05/10/25 09:22: POC Glucose 158 H 05/10/25 15:51: WBC 14.4 H, RBC 2.53 L, Hgb 7.9 L, Hct 23.2 L, MCV 91.7, MCH 31.2, MCHC 34.1, RDW Std Deviation 46.9 H, RDW Coeff of Alex 14.0, Plt Count 127 L, MPV 10.9, Immature Gran % (Auto) 0.300, Neut % (Auto) 80.2 H, Lymph % (Auto) 6.5 L, [place] % (Auto) 12.8 H, Eos % (Auto) 0.1, Baso % (Auto) 0.1, Absolute Neuts (auto) 11.5 H, Absolute Lymphs (auto) 0.93, Nucleated RBC % 0, Troponin T High Sens 36 H Radiography Diagnostic Testing: Radiology Impression Brain CT 05/10/25 09:24 IMPRESSION: CHRONIC CHANGES. NO ACUTE FINDINGS. Reading Location: [place] [id number] Head/Neck CTA 05/10/25 09:35 IMPRESSION: Atherosclerotic calcific plaques at the origin of the right and left internal carotid arteries as described. Red Alert: Nothing acute The critical information above was relayed directly by me by telephone to Sourav Casiano on 05/10/2025 at 9:55 am with readback verification. Reading Location: [facility]- Physical Exam Narrative alert, oriented x3, no apparent distress and healthy appearing Constitutional Narrative: Patient appears much younger than her stated age General Appearance: cooperative, well kempt and well developed Orientation / Consciousness: awake, oriented to person, oriented to place and oriented to time HEENT normocephalic, head/scalp atraumatic, hearing grossly normal bilaterally and moist oral mucous membranes Eyes PERRL, EOMs intact bilaterally and conjunctivae normal Neck supple, no JVD, thyroid normal and no carotid bruits General: trachea midline Resp normal respiratory effort, no retractions, no use of accessory muscles and clear to auscultation bilaterally Auscultation: Negative for rales, rhonchi or wheezes Cardio regular rate, regular rhythm, S1 normal heart sound, S2 normal heart sound, no murmurs, no rub and no gallops GI normal to inspection, nondistended, normoactive bowel sounds, soft to palpation, non-tender and non-distended Skin no rashes or lesions noted General Skin Exam: no breakdown Neuro oriented x3, CN's II-XII intact bilaterally, no focal motor deficits and no sensory deficits noted Sensorium / Orientation: awake and alert Speech: speech normal Psych affect normal Assessment & Plan Assessment/Plan (1) Femoral distal fracture: QUALIFIERS: Encounter type: initial encounter Fracture type: closed Laterality: left PLAN: Plan 1. 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-patient appears medically stable #3 coronary artery disease-patient appears medically stable at this time, I will hold her Plavix for now #4 essential hypertension-patient will remain on her current medications #5 chronic use of anticoagulant-patient's Eliquis will be restarted tomorrow #6 glaucoma-patient will remain on her eyedrops #7 acute anemia secondary to left distal femur fracture-patient's hemoglobin this morning was 8.0, her repeat hemoglobin this afternoon was 7.9, I will repeat the patient's CBC tomorrow #8 transient episode of slurred speech-etiology unclear, I have decided to lower the patient's pain medication #9 leukocytosis-etiology unclear, I have decided to place the patient on IV antibiotics for now and obtain a blood culture and urine culture. Total clinical time spent by myself addressing the patient's medical issues, reviewing all of her data, and collaborating with patient's care team: 50-minute Charges/Coding Visit Charges Inpatient E&M: 13798 Subs Hosp L3
[2025-05-10] MEDS: Piperacil/Tazobactam 3.375 GM in 0.9% Normal Saline (50mL MB+) 50 ML IV (18:27)
[2025-05-10 19:29] LABS: Differential Comment SCANNED
[2025-05-10 19:35] LABS: Troponin T High Sens 2 HR 36 ng/L (<=14)
[2025-05-10 21:39] LABS: Troponin T High Sens 4 HR 34 ng/L (<=14)
[2025-05-10] MEDS: Latanoprost 0.005% 1 Bottle 1 DRP OPHTHALMIC (22:13)
[2025-05-11] VITALS (14 sets, daily range): BP systolic 104–136; BP diastolic 40–64; PULSE 74–85; RESP 16–18; TEMP 36.2–37.1; O2SAT 97–99
[2025-05-11] MEDS: 0.9% Normal Saline (500mL Bag) 500 ML IV (03:42)
[2025-05-11] MEDS: Piperacil/Tazobactam 3.375 GM in 0.9% Normal Saline (50mL MB+) 50 ML IV ×2 (04:48→14:32)
[2025-05-11] MEDS: 0.9% Normal Saline (1000mL) 1,000 ML 75 ML IV ×2 (04:50→19:59)
[2025-05-11 04:51] LABS: Mucous, Urine 0 SEEN /hpf (<or=2+)
[2025-05-11 04:56] LABS: Color, Urine Yellow (Yellow); Glucose, Dipstick Normal (Normal); Ketone-Dipstick Negative (Negative); Leukocyte Esterase-Dipstick Negative /ul (Negative); Nitrite-Dipstick Negative (Negative); Occult Blood-Urine 25 /ul (Negative); Protein-Dipstick 15 mg/dl (Negative); Specific Gravity, Urine 1.020 (1.002-1.030); Urine Bilirubin Dipstick Negative (Negative)
[2025-05-11 05:04] LABS: Red Blood Cells-Urine 0-5 SEEN /hpf (0-5); Squamous Epithelial Cells - UA 0-5 SEEN /hpf (5-10)
[2025-05-11 09:27] LABS: Hematocrit 18.5 % (37-47); Hemoglobin 6.3 g/dL (12.0-15.0); Immature Granulocytes Count 0.030 X10^3/uL (0.0-0.0); Mean Corp Hgb Conc 34.1 g/dL (32-36); Mean Corpuscular Volume 91.6 fL (81-99); Mean Platelet Vol. 10.7 fl (6.2-12.0); NRBC Flagged by Analyzer 0 % (0-5); Platelet Count 114 K/mm3 (150-450); RBC Distribution Width CV 13.9 % (11.6-14.6); RBC Distribution Width SD 47.1 fl (35.1-43.9); Red Blood Count 2.02 M/mm3 (4.2-5.4); White Blood Count 10.3 K/mm3 (4.4-11.0)
[2025-05-11] MEDS: BRIMONIDINE 0.2% 5ML BOTTLE 1 DRP EACH EYE ×2 (10:22→21:30)
[2025-05-11] MEDS: Dorzolamide HCL/Timolol 10 ml Bottle 1 DRP EACH EYE ×2 (10:22→21:31)
[2025-05-11] MEDS: 0.9% Saline Lock 10 ML Syringe IV ×2 (10:51→17:33)
--- NOTE | 2025-05-11 11:42 | CASEMGMT ---
Social Work- Pt is not responsive and able to engage in conversation. SW collaborated with bedside nurse who reports that pt has not been able to engage this morning. Pt friend was in with a shake for pt; friend had to hold pt head up as well as hold the cup. SW remains available to follow. JONO Patrick
--- NOTE | 2025-05-11 12:05 | MRI_ITS ---
PROCEDURE: BRAIN WITHOUT CONTRAST 05/11/2025 REASON FOR EXAM: LETHARGY, RULE OUT CVA TECHNIQUE: Multiplanar and multisequential MRI of the brain was performed without contrast. COMPARISON: CT head/angiography 05/10/2025. FINDINGS: Numerous scattered small foci of restricted diffusion compatible with acute infarct along the bilateral cerebral hemispheres, with several involving the bilateral high posterior frontoparietal cortex, knuqg-eyemwfh-iksy-left occipital cortex/sub cortex, numerous in the bilateral guo radiata white matter, and few involving the bilateral cerebellar hemispheres. No large territorial infarct. Moderate-advanced chronic small-vessel ischemic-gliotic changes elsewhere within the cerebral white matter, with numerous foci of chronic lacunar infarct involving the guo radiata white matter, more so on the left with a prominent focus in the left frontal periventricular white matter just superior to the basal ganglia. No evidence of acute intracranial hemorrhage, extra-axial collection, mass effect or midline shift. Mild-moderate generalized brain parenchymal volume loss. Normal ventricular caliber. Major intracranial vascular flow voids appear preserved. Prior left orbital cataract surgery. Well-aerated paranasal sinuses and bilateral mastoid air cells. MRI/Brain without Contrast IMPRESSION: 1. Numerous scattered small foci of acute infarct throughout the bilateral cere bral and cerebellar hemispheres as described, presumably embolic. 2. Background of moderate-advanced chronic small-vessel ischemic changes, with several foci of chronic lacunar infarct mainly involving the left cerebral periventricular white matter. 3. No intracranial hemorrhage, extra-axial collection, or mass-effect. Reading Location: [id number]
--- NOTE | 2025-05-11 15:14 | PN.HOSP_ITS ---
Reason for Visit Chief Complaint: Left leg injury, inability to ambulate Subjective Subjective Patient was seen and examined today, she is very somnolent and responds to deep painful stimuli but does not carry on a conversation. I made the decision today to obtain an MRI of her brain which is pending at the time of this dictation. Patient's white blood cell count today was normal, hemoglobin was low at 6.3-I ordered 2 units of packed red blood cells to be transfused. I talked briefly with the patient's friend by phone today. Objective Data Objective Data Vital Signs: Vital Signs Temp Pulse Resp BP Pulse Ox O2 Del Method 97.1 F L 79 18 107/64 99 Room Air 05/11/25 14:54 05/11/25 14:54 05/11/25 14:54 05/11/25 14:54 05/11/25 14:54 05/11/25 14:54 Oxygen Delivery Method Room Air Weight: 75.6 kg Body Mass Index (BMI) 27.3 Intake & Output: Intake and Output for Last 24 Hours 05/09/25 05/10/25 05/11/25 23:59 23:59 23:59 Intake Total 890 / 890 1337.08 / 1437.08 2193.75 / 2193.75 Output Total 1275 / 1475 200 / 200 1100 / 1100 Balance -385 / -585 1137.08 / 1237.08 1093.75 / 1093.75 Lab / Micro Data 05/11/25 09:15 05/08/25 05:45 Labs: Laboratory Results - last 24 hr 05/07/25 18:36: Crossmatch See Detail 05/10/25 15:51: WBC 14.4 H, RBC 2.53 L, Hgb 7.9 L, Hct 23.2 L, MCV 91.7, MCH 31.2, MCHC 34.1, RDW Std Deviation 46.9 H, RDW Coeff of Alex 14.0, Plt Count 127 L, MPV 10.9, Immature Gran % (Auto) 0.300, Neut % (Auto) 80.2 H, Lymph % (Auto) 6.5 L, [place] % (Auto) 12.8 H, Eos % (Auto) 0.1, Baso % (Auto) 0.1, Absolute Neuts (auto) 11.5 H, Absolute Lymphs (auto) 0.93, Nucleated RBC % 0, Differential Comment SCANNED, Platelet Estimate SLT DEC, Troponin T High Sens 36 H 05/10/25 18:33: Troponin T Hi Sens 2 Hr 36 H 05/10/25 20:28: Troponin T Hi Sens 4Hr 34 H 05/11/25 03:35: Urine Color Yellow, Urine Clarity Clear, Urine pH 5.0, Ur Specific [place] 1.020, Urine Protein 15 H, Urine Glucose (UA) Normal, Urine Ketones Negative, Urine Occult Blood 25 H, Urine Nitrite Negative, Urine Bilirubin Negative, Urine Urobilinogen Normal, Ur Leukocyte Esterase Negative, Urine RBC 0-5 SEEN, Urine WBC 0-5 SEEN, Ur Squamous Epith Cells 0-5 SEEN, Urine Bacteria 2+, Urine Mucus 0 SEEN 05/11/25 06:16: WBC Cancelled, Corrected WBC Cancelled, RBC Cancelled, Hgb Cancelled, Hct Cancelled, MCV Cancelled, MCH Cancelled, MCHC Cancelled, RDW Std Deviation Cancelled, RDW Coeff of Alex Cancelled, Plt Count Cancelled, MPV Cancelled, Immature Gran % (Auto) Cancelled, Neut % (Auto) Cancelled, Lymph % (Auto) Cancelled, [place] % (Auto) Cancelled, Eos % (Auto) Cancelled, Baso % (Auto) Cancelled, Absolute Neuts (auto) Cancelled, Absolute Lymphs (auto) Cancelled, Total Counted Cancelled, Neutrophils % (Manual) Cancelled, Band Neutrophils % Cancelled, Lymphocytes % (Manual) Cancelled, Monocytes % (Manual) Cancelled, Eosinophils % (Manual) Cancelled, Basophils % (Manual) Cancelled, Metamyelocytes % Cancelled, Myelocytes % Cancelled, Promyelocytes % Cancelled, Blast Cells % Cancelled, Plasma Cell % (Manual) Cancelled, Other Cells % Cancelled, Nucleated RBC % Cancelled, Nucleated RBCs/100 WBC Cancelled, Differential Comment Cancelled, Diff Path Review Cancelled, Hypersegmented Neuts Cancelled, Atypical Lymphocytes Cancelled, Reactive Lymphocytes Cancelled, Smudge Cells Cancelled, Toxic Granulation Cancelled, Toxic Vacuolation Cancelled, Dohle Bodies Cancelled, Sarah Rods Cancelled, Platelet Estimate Cancelled, Plt Morphology Comment Cancelled, RBC Morphology Cancelled 05/11/25 06:16: RBC Morphology Cancelled, Polychromasia Cancelled, Hypochromasia Cancelled, Basophilic Stippling Cancelled, Anisocytosis Cancelled, Microcytosis Cancelled, Macrocytosis Cancelled, Spherocytes Cancelled, Sickle Cells Cancelled, Target Cells Cancelled, Tear Drop Cells Cancelled, Ovalocytes Cancelled, Stomatocytes Cancelled, Arredondo[place] Bodies Cancelled, [place] Cells Cancelled, Bite Cells Cancelled, Crenated Cell Cancelled, Acanthocytes (Spur) Cancelled, Rouleaux Cancelled, Schistocytes Cancelled 05/11/25 09:15: WBC 10.3, RBC 2.02 L, Hgb 6.3 L, Hct 18.5 L, MCV 91.6, MCH 31.2, MCHC 34.1, RDW Std Deviation 47.1 H, RDW Coeff of Alex 13.9, Plt Count 114 L, MPV 10.7, Immature Gran % (Auto) 0.300, Neut % (Auto) 80.9 H, Lymph % (Auto) 7.8 L, [place] % (Auto) 10.4 H, Eos % (Auto) 0.5, Baso % (Auto) 0.1, Absolute Neuts (auto) 8.4 H, Absolute Lymphs (auto) 0.81 L, Nucleated RBC % 0 05/11/25 10:15: Blood Type AB POSITIVE, Antibody Screen NEGATIVE, Crossmatch See Detail Physical Exam Const no apparent distress Constitutional Narrative: Patient is somnolent, she responds to painful stimuli but does not carry on a conversation General Appearance: well kempt and well developed HEENT normocephalic, head/scalp atraumatic and moist oral mucous membranes Eyes PERRL, EOMs intact bilaterally and conjunctivae normal Neck supple, no JVD, thyroid normal and no carotid bruits General: trachea midline Resp normal respiratory effort, no retractions, no use of accessory muscles and clear to auscultation bilaterally Auscultation: Negative for rales, rhonchi or wheezes Cardio regular rate, regular rhythm, S1 normal heart sound, S2 normal heart sound, no murmurs, no rub and no gallops GI normal to inspection, nondistended, normoactive bowel sounds, soft to palpation, non-tender and non-distended Skin no rashes or lesions noted General Skin Exam: no breakdown Neuro CN's II-XII intact bilaterally Neuro Narrative: Patient is somnolent, she responsive to painful stimuli but does not carry on a conversation Psych Psych Narrative: Patient responds to painful stimuli but does not carry on a conversation Assessment & Plan Assessment/Plan (1) Femoral distal fracture: QUALIFIERS: Encounter type: initial encounter Fracture type: c losed Laterality: left PLAN: Plan 1. Left distal femur fracture secondary to osteoporosis-postop day 2 open reduction internal fixation of left femoral shaft, PT and OT will continue, patient may need short-term stay in a group home facility for rehab services #2 history of valvular heart disease with recent TAVR-patient appears medically stable #3 coronary artery disease-patient appears medically stable at this time, I will hold her Plavix for now #4 essential hypertension-patient will remain on her current medications #5 chronic use of anticoagulant-patient is on Eliquis #6 glaucoma-patient will remain on her eyedrops #7 acute anemia secondary to left distal femur fracture-patient's hemoglobin this morning was 6.3, patient will receive 2 units of packed red blood cells, CBC will be repeated tomorrow #8 transient episode of slurred speech-etiology unclear, will have an MRI of the brain performed today #9 leukocytosis-etiology unclear, patient's white blood cell count today was normal, blood cultures are pending, I will continue antibiotics for now #10 encephalopathy-etiology unclear, patient will have an MRI of the brain performed today Total clinical time spent by myself addressing the patient's medical issues, reviewing all of her data, and collaborating with patient's care team: 35- minutes Charges/Coding Visit Charges Inpatient E&M: 04588 Subs Hosp L2
--- NOTE | 2025-05-11 16:09 | PN.ORTHO_ITS ---
Subjective Subjective Patient is an 85-year-old female status post left femur open reduction internal fixation with Dr. Livingston 05/09/2025. Patient's pain has a seemingly been well- controlled. Yesterday the stroke team was called due to a left sided facial droop however after speaking with family or friends they felt that this was stable so the hospitalist canceled the stroke alert. CT scans were obtained which did not reveal any acute stroke or acute intracranial abnormality. Upon evaluation this morning patient became unresponsive with worsening slurred speech and weakness. Patient was evaluated by the nurse and hospitalist who sent her for a stat MRI. The dressing remains dry on the left femur with no significant ecchymosis or hematoma formation. Hemaglobin dropped to 6.3. hospitalist did start ABX and ruling out UTI after a slight elevation in leukocytes. she remains afebrile. Objective Data Objective Data Vital Signs: Vital Signs Temp Pulse Resp BP Pulse Ox O2 Del Method 97.2 F L 78 18 127/48 H 97 Room Air 05/11/25 15:54 05/11/25 15:54 05/11/25 15:54 05/11/25 15:54 05/11/25 15:54 05/11/25 15:54 Oxygen Delivery Method Room Air Weight: 75.6 kg Body Mass Index (BMI) 27.3 Intake & Output: Intake and Output for Last 24 Hours 05/09/25 05/10/25 05/11/25 23:59 23:59 23:59 Intake Total 890 / 890 1337.08 / 1437.08 2593.75 / 2593.75 Output Total 1275 / 1475 200 / 200 1100 / 1100 Balance -385 / -585 1137.08 / 1237.08 1493.75 / 1493.75 Lab / Micro Data 05/11/25 09:15 05/08/25 05:45 Labs: Laboratory Results - last 24 hr 05/07/25 18:36: Crossmatch See Detail 05/10/25 15:51: WBC 14.4 H, RBC 2.53 L, Hgb 7.9 L, Hct 23.2 L, MCV 91.7, MCH 31.2, MCHC 34.1, RDW Std Deviation 46.9 H, RDW Coeff of Alex 14.0, Plt Count 127 L, MPV 10.9, Immature Gran % (Auto) 0.300, Neut % (Auto) 80.2 H, Lymph % (Auto) 6.5 L, [place] % (Auto) 12.8 H, Eos % (Auto) 0.1, Baso % (Auto) 0.1, Absolute Neuts (auto) 11.5 H, Absolute Lymphs (auto) 0.93, Nucleated RBC % 0, Differential Comment SCANNED, Platelet Estimate SLT DEC, Troponin T High Sens 36 H 05/10/25 18:33: Troponin T Hi Sens 2 Hr 36 H 05/10/25 20:28: Troponin T Hi Sens 4Hr 34 H 05/11/25 03:35: Urine Color Yellow, Urine Clarity Clear, Urine pH 5.0, Ur Specific [place] 1.020, Urine Protein 15 H, Urine Glucose (UA) Normal, Urine Ketones Negative, Urine Occult Blood 25 H, Urine Nitrite Negative, Urine Bilirubin Negative, Urine Urobilinogen Normal, Ur Leukocyte Esterase Negative, Urine RBC 0-5 SEEN, Urine WBC 0-5 SEEN, Ur Squamous Epith Cells 0-5 SEEN, Urine Bacteria 2+, Urine Mucus 0 SEEN 05/11/25 06:16: WBC Cancelled, Corrected WBC Cancelled, RBC Cancelled, Hgb Cancelled, Hct Cancelled, MCV Cancelled, MCH Cancelled, MCHC Cancelled, RDW Std Deviation Cancelled, RDW Coeff of Alex Cancelled, Plt Count Cancelled, MPV Cancelled, Immature Gran % (Auto) Cancelled, Neut % (Auto) Cancelled, Lymph % (Auto) Cancelled, [place] % (Auto) Cancelled, Eos % (Auto) Cancelled, Baso % (Auto) Cancelled, Absolute Neuts (auto) Cancelled, Absolute Lymphs (auto) Cancelled, Total Counted Cancelled, Neutrophils % (Manual) Cancelled, Band Neutrophils % Cancelled, Lymphocytes % (Manual) Cancelled, Monocytes % (Manual) Cancelled, Eosinophils % (Manual) Cancelled, Basophils % (Manual) Cancelled, Metamyelocytes % Cancelled, Myelocytes % Cancelled, Promyelocytes % Cancelled, Blast Cells % Cancelled, Plasma Cell % (Manual) Cancelled, Other Cells % Cancelled, Nucleated RBC % Cancelled, Nucleated RBCs/100 WBC Cancelled, Differential Comment Cancelled, Diff Path Review Cancelled, Hypersegmented Neuts Cancelled, Atypical Lymphocytes Cancelled, Reactive Lymphocytes Cancelled, Smudge Cells Cancelled, Toxic Granulation Cancelled, Toxic Vacuolation Cancelled, Dohle Bodies Cancelled, Sarah Rods Cancelled, Platelet Estimate Cancelled, Plt Morphology Comment Cancelled, RBC Morphology Cancelled 05/11/25 06:16: RBC Morphology Cancelled, Polychromasia Cancelled, Hypochromasia Cancelled, Basophilic Stippling Cancelled, Anisocytosis Cancelled, Microcytosis Cancelled, Macrocytosis Cancelled, Spherocytes Cancelled, Sickle Cells Cancelled, Target Cells Cancelled, Tear Drop Cells Cancelled, Ovalocytes Cancelled, Stomatocytes Cancelled, Arredondo-[place] Bodies Cancelled, [place] Cells Cancelled, Bite Cells Cancelled, Crenated Cell Cancelled, Acanthocytes (Spur) Cancelled, Rouleaux Cancelled, Schistocytes Cancelled 05/11/25 09:15: WBC 10.3, RBC 2.02 L, Hgb 6.3 L, Hct 18.5 L, MCV 91.6, MCH 31.2, MCHC 34.1, RDW Std Deviation 47.1 H, RDW Coeff of Alex 13.9, Plt Count 114 L, MPV 10.7, Immature Gran % (Auto) 0.300, Neut % (Auto) 80.9 H, Lymph % (Auto) 7.8 L, [place] % (Auto) 10.4 H, Eos % (Auto) 0.5, Baso % (Auto) 0.1, Absolute Neuts (auto) 8.4 H, Absolute Lymphs (auto) 0.81 L, Nucleated RBC % 0 05/11/25 10:15: Blood Type AB POSITIVE, Antibody Screen NEGATIVE, Crossmatch See Detail Physical Exam Narrative Patient is obtunded. right side neglect, head tilted to the left left sided facial droop left pupil ERRL minimally reponsive to deep stim appears to withdrawl on the right and localizes on the left with upper extremities lower extremities do withdrawl to stim of toes/feet. dressing over left femur c/d/i No ecchymosis noted. Compartments are soft and compressible. brisk cap refill to toes. Assessment & Plan Assessment/Plan (1) Femoral distal fracture: QUALIFIERS: Encounter type: initial encounter Fracture type: c losed Laterality: left PLAN: PLAN: POD# 2 s/p left femur ORIF Nurse and hospitalist are aware of patient's mental status they are sending for a stat MRI. This was also reviewed with Dr. Livingston. -Morning H&H 6.3 hospitalist is transfusing. - Pain control - PT/OT -nonweightbearing left lower extremity, active range of motion as tolerated left knee and hip. - DVT PPX -restart home Eliquis and early mobilization -Will need placement. - Case management - D/C planning
--- NOTE | 2025-05-11 19:15 | PCM.HOSP.N ---
Hospitalist Note MRI of the brain was performed today, it showed multiple acute small strokes felt to be embolic in nature, I will have teleneurology see the patient tomorrow. I have made the decision to stop the patient's antibiotics at this time. Patient remains on a statin and Eliquis at this time.
--- NOTE | 2025-05-11 19:18 | ECHOCS_ITS ---
Reason For Study Reason For Study: TIA/CVA Procedure This was a 2D Doppler, Color Flow transthoracic echocardiogram. The study was technically difficult. Contrast injection was performed. Echo done with patient supine due to left femur fracture. Exam performed portable in patient room. Left Ventricle Normal LV size. Mild eccentric left ventricular hypertrophy. The estimated ejection fraction is 65 %. Stage 2 diastolic dysfunction. No regional wall motion abnormalities noted. Right Ventricle Normal RV size. Normal systolic function. Atria The left atrium is mildly enlarged. Normal right atrium. Prominent eustachian valve. Mitral Valve Moderate mitral annular calcification. Trivial mitral valve insufficiency. Tricuspid Valve Normal tricuspid valve. Mild (1+) tricuspid valve insufficiency. Pulmonary artery systolic pressure is 52 mmHg. Aortic Valve Peak aortic valve gradient 38 mmHg. Mean aortic valve gradient 24 mmHg. Stable appearing bioprosthetic aortic valve apparatus. Pulmonic Valve The pulmonic valve is not well visualized. Great Vessels The aortic root is not well visualized. Pericardium/Pleural No pericardial effusion. Medication Diluted definity 2.5ml given slow IV push to enhance endocardial definition. MMode/2D Measurements & Calculations LVIDd: 4.3 cm IVSd: 1.1 cm LVOT diam: 1.7 cm LVIDs: 2.8 cm LVPWd: 1.0 cm RVDd: 3.6 cm FS: 35.1 % LVOT area: 2.2 cm2 LA dimension: 3.0 cm LAV(MOD-bp): 79.3 ml LVAd ap4: 29.9 cm2 LAV(MOD-bp) Indexed: 43.4 ml/m2 LVLd ap4: 8.3 cm LAV(MOD-sp2): 71.8 ml EDV(MOD-sp4): 87.0 ml LAV(MOD-sp4): 81.2 ml EDV(sp4-el): 91.5 ml LVAs ap4: 14.2 cm2 LVLs ap4: 6.5 cm ESV(MOD-sp4): 26.1 ml ESV(sp4-el): 26.4 ml EF(MOD-sp4): 70.0 % EF(sp4-el): 71.1 % SV(MOD-sp4): 60.9 ml SV(sp4-el): 65.1 ml LA A4 area: 24.3 cm2 SI(MOD-sp4): 33.3 ml/m2 RA A4 area: 17.1 cm2 TAPSE: 2.6 cm Time Measurements MV dec time: 0.28 sec Doppler Measurements & Calculations MV E max bari: 118.1 cm/sec Lat Peak E' Bari: 8.7 cm/sec Med Peak E' Bari: 8.4 cm/sec MV A max bari: 117.9 cm/sec E/E' lat: 13.6 E/E' med: 14.1 MV E/A: 1.0 MV V2 max: 162.0 cm/sec MV P1/2t max bari: 162.7 cm/sec Ao V2 max: 307.9 cm/sec MV max P.5 mmHg MV P1/2t: 109.3 msec Ao max P.1 mmHg MV V2 mean: 90.2 cm/sec MV dec slope: 436.0 cm/sec2 Ao V2 mean: 232.1 cm/sec MV mean P.9 mmHg MVA(P1/2t): 2.0 cm2 Ao mean P.9 mmHg MV V2 VTI: 61.5 cm Ao V2 VTI: 68.2 cm MVA(VTI): 1.3 cm2 AV (velocity ratio): 0.52 EFFIE(I,D): 1.1 cm2 EFFIE(V,D): 1.0 cm2 LV V1 max: 142.2 cm/sec SV(LVOT): 77.4 ml TR max bari: 305.7 cm/sec LV V1 max P.1 mmHg TR max P.4 mmHg LV V1 mean P.2 mmHg LV V1 mean: 108.8 cm/sec LV V1 VTI: 35.4 cm ECHO/Echo Complete W/ Contrast Interpretation Summary The estimated ejection fraction is 65 %. Stage 2 diastolic dysfunction. The left atrium is mildly enlarged. Stable appearing bioprosthetic aortic valve apparatus. Mean peak gradient 24 mm Hg. Mild (1+) tricuspid valve insufficiency. Pulmonary artery systolic pressure is 52 mmHg. Contrast injection was performed. Ordering Physician: Sourav Casiano Performed By: José Manuel Siddiqui and Student
[2025-05-11] MEDS: Latanoprost 0.005% 1 Bottle 1 DRP OPHTHALMIC (21:30)
[2025-05-12] VITALS (8 sets, daily range): BP systolic 111–154; BP diastolic 44–62; PULSE 65–79; RESP 16–18; TEMP 36.1–37.2; O2SAT 97–100; BMI 27.3
[2025-05-12] MEDS: APIXABAN 5 MG TABLET PO ×2 (08:11→20:53)
[2025-05-12] MEDS: Dorzolamide HCL/Timolol 10 ml Bottle 1 DRP EACH EYE ×2 (08:11→21:02)
[2025-05-12] MEDS: Senna/Docusate Sodium 1 Tablet 2 TABLET PO ×2 (08:11→20:53)
[2025-05-12] MEDS: BRIMONIDINE 0.2% 5ML BOTTLE 1 DRP EACH EYE ×2 (08:12→21:01)
--- NOTE | 2025-05-12 08:37 | NURSING ---
talked with Sylvie community outreach director regarding MRI results. message sent to Dr. Murdock, concern pt needs NIH monitoring, NIH monitoring not done on MS. Per Dr. Murdock transfer to PCU. fabrication supervisor notified. Primary RN and Sylvie Membreno RN notified of Dr. Hatch response.
--- NOTE | 2025-05-12 09:21 | NURSING ---
Report called to Nicolasa at PCU, pt sent to room 126.
--- NOTE | 2025-05-12 10:09 | CASEMGMT ---
Social Work- SW followed up with [facility] regarding new diagnosis and recent medical events. Pt is not medically ready, therefore, [facility] admissions to follow. Pt to change floors to PCU. SW provided handoff to PCU staff. JONO Patrick
[2025-05-12 11:52] LABS: Hematocrit 24.6 % (37-47); Hemoglobin 8.3 g/dL (12.0-15.0); Immature Granulocytes Count 0.050 X10^3/uL (0.0-0.0); Mean Corp Hgb Conc 33.7 g/dL (32-36); Mean Corpuscular Volume 89.8 fL (81-99); Mean Platelet Vol. 10.1 fl (6.2-12.0); NRBC Flagged by Analyzer 0 % (0-5); Platelet Count 129 K/mm3 (150-450); RBC Distribution Width CV 14.8 % (11.6-14.6); RBC Distribution Width SD 48.1 fl (35.1-43.9); Red Blood Count 2.74 M/mm3 (4.2-5.4); White Blood Count 7.3 K/mm3 (4.4-11.0)
--- NOTE | 2025-05-12 12:12 | PN.ORTHO_ITS ---
Subjective Subjective Patient is an 85-year-old female status post left femur open reduction internal fixation with Dr. Livingston 05/09/2025. Patient's pain has a seemingly been well- controlled. patient was found to have embolic stroke after STAT MRI yesterday. she has been moved to PCU and evaluated by neurology. The dressing remains dry on the left femur with no significant ecchymosis or hematoma formation. Hemaglobin improved at 8.3. medicine d/c'd ABX yesterday.. Objective Data Objective Data Vital Signs: Vital Signs Temp Pulse Resp BP Pulse Ox O2 Del Method 97.0 F L 73 16 111/44 L 98 Room Air 05/12/25 09:41 05/12/25 09:41 05/12/25 09:41 05/12/25 09:41 05/12/25 09:41 05/12/25 09:41 Oxygen Delivery Method Room Air Weight: 75.6 kg Body Mass Index (BMI) 27.3 Intake & Output: Intake and Output for Last 24 Hours 05/10/25 05/11/25 05/12/25 23:59 23:59 23:59 Intake Total 1337.08 / 1437.08 3265.00 / 3265.00 1000 / 1000 Output Total 200 / 200 1100 / 1900 1150 / 1150 Balance 1137.08 / 1237.08 2165.00 / 1365.00 -150 / -150 Lab / Micro Data 05/12/25 11:29 05/08/25 05:45 Labs: Laboratory Results - last 24 hr 05/11/25 10:15: Blood Type AB POSITIVE, Antibody Screen NEGATIVE, Crossmatch See Detail 05/12/25 11:29: WBC 7.3, RBC 2.74 L, Hgb 8.3 L, Hct 24.6 L, MCV 89.8, MCH 30.3, MCHC 33.7, RDW Std Deviation 48.1 H, RDW Coeff of Alex 14.8 H, Plt Count 129 L, MPV 10.1, Immature Gran % (Auto) 0.700, Neut % (Auto) 76.4 H, Lymph % (Auto) 10.7 L, [place] % (Auto) 10.9 H, Eos % (Auto) 1.2, Baso % (Auto) 0.1, Absolute Neuts (auto) 5.5, Absolute Lymphs (auto) 0.78 L, Nucleated RBC % 0 Radiography Diagnostic Testing: Radiology Impression Brain MRI 05/11/25 12:05 IMPRESSION: 1. Numerous scattered small foci of acute infarct throughout the bilateral cerebral and cerebellar hemispheres as described, presumably embolic. 2. Background of moderate-advanced chronic small-vessel ischemic changes, with several foci of chronic lacunar infarct mainly involving the left cerebral periventricular white matter. 3. No intracranial hemorrhage, extra-axial collection, or mass-effect. Reading Location: [facility] Physical Exam Narrative spontaneously awake and responsive A&Ox1 to self follows commands x 4 able to lift both arms above head and wiggle toes left sided facial droop left pupil ERRL minimally reponsive to deep stim SILT to bilateral upper and bilateral lower extremities dressing over left femur c/d/i No ecchymosis noted. Compartments are soft and compressible. brisk cap refill to toes. Assessment & Plan Assessment/Plan (1) Femoral distal fracture: QUALIFIERS: Encounter type: initial encounter Fracture type: c losed Laterality: left PLAN: PLAN: POD# 3 s/p left femur ORIF - stroke management per primary - hemoglobin improved to 8.3. defer to medicine for further management. - Pain control - PT/OT -nonweightbearing left lower extremityx 6 weeks, active range of motion as tolerated left knee and hip. - DVT PPX -restart home Eliquis x 6 weeks and early mobilization. ultimately will defer anticoagulation to primary in setting of embolic stroke. -ortho will sign off at this time. - patient is to follow up in 2 weeks in the office .this will need to be arranged. - ok to d/c dressing in 1 week. lakeisha remain x 2 week.
[2025-05-12 12:51] LABS: Anion Gap 8 (5-15); BUN 23 mg/dL (4-19); BUN/Creat Ratio 34.0 RATIO (10-20); Calcium,Total 7.8 mg/dL (7.6-11.0); Carbon Dioxide 19.5 mmol/L (21.0-32.0); Chloride 109 mmol/L (98-108); Estimated Creatinine Clearance 51.35 ml/min (50-250); Glucose 168 mg/dL (70-99); Potassium 4.0 mmol/L (3.3-5.1)
--- NOTE | 2025-05-12 13:18 | CON.PCM.NE_ITS ---
Assessment and Plan: Stroke Assessment/Plan GOGO WARE is a 85 yo F with PMH of TAVR and CAD on plavyx, VTE on Eliquis, HTN, and Glaucoma who is admitted to [facility] for L femur fracture s/p L ORIF on 05/09/25. Neurovascular consulted after patient was evaluated for L facial droop (chronic), and altered mentation post op and was found to have acute ischemia on MRI. Numerous Scattered Small Acute Stroke in BL Cerebral and Cerebellar Hemispheres Etiology: Cryptogenic, ESUS CT/CTA completed. CTH showed prior periventricular L lacunar stroke but otherwise non acute; CTA showed bilateral ICAD without severe flow limiting stenosis or occlusion. TTE pending Please obtain LDL, A1C Patient is already on Eliquis for VTE history, and on ASA (prior to hospitalize Plavix per chart review) for CAD/TAVR. She is planned to continue these at discharge. As she is already on AC/AP therapy, would not add additional AC/AP to this regimen. 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 BP management should aim to achieve termite treater contorl in a reasonable amount of time, taking into consideration the individual patient's requirements and characteristics. Weight Management: Goal for BMI is 18.5 -24.9 kg/m2 Alcohol: No more than 2 drinks/day for men or 1 drink/day for non- women Promote lifestyle modification: weight control, physical activity, moderation of alcohol intake, moderate sodium intake. 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 Ensure PCP follow up in 1- 2 weeks. Cardiology follow up as needed. 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 Per chart review post operatively on 05/10 patient was noted by team to have dysarthria and L facial droop for which CTH/CTA obtained. On review of imaging, CTH showed prior periventricular L lacunar stroke but otherwise non acute; CTA showed bilateral ICAD without severe flow limiting stenosis or occlusion. Stroke alert cancelled after family reported L facial droop was chronic. Subsequently on 05/11 had continued AMS and underwent MRI which showed bilateral shower of embolic appearing infarcts in the BL cerebral hemispheres. On evaluation today patient is alert and is coherent. She is perseverating on her words and has mild aphasia. She is able to follow all simple commands, but has difficulty with complex 2-3 step commands. She is confused and only oriented to self. She seems genuinely surprised to learn she is in the hospital and had hip surgery. She is very pleasant and calm. No agitation. BLUE move antigravity without drift. BLLE she is able to wiggle toes but not lift antigravity. [facility] Medical History Laceration of leg Closed head injury Abrasions of multiple sites Laceration of lip Pure hypercholesterolemia Nonrheumatic aortic (valve) stenosis Non-ST elevation (NSTEMI) myocardial infarction Old myocardial infarction Atherosclerotic heart disease of [place] coronary artery without angina pectoris Essential hypertension Seborrheic keratosis Generalized weakness Fall Home Medications ?Medication ?Instructions ?Recorded ?Last Taken ?Type brimonidine 0.2 % eye drops 2 drp EACH EYE BID glaucom a 11/25/17 11/25/17 History dorzolamide 22.3 mg-timolol 6.8 1 drp EACH EYE BID gla ucoma 11/25/17 11/25/17 History mg/mL eye drops latanoprost 0.005 % eye drops 1 drp ophthalmic (eye) Q PM 12/17/19 Unknown History carvedilol 12.5 mg tablet 12.5 mg PO BID #180 tabs 05/21 Unknown Rx apixaban 5 mg tablet (Eliquis) 5 mg PO BID 05/07/25 Un known History clopidogrel 75 mg tablet 75 mg PO DAILY 05/07/25 Unkn own History temazepam 30 mg capsule 30 mg PO DAILY 05/07/25 Unkn own History valsartan 160 mg tablet 80 mg PO DAILY 05/07/25 Unkn own History Allergy/AdvReac Type Severity Reaction Status Date / Time No Known Allergies Allergy Verified 03/16/24 14:09 Family History Father Diabetes Grandmother Colon cancer Surgical History History of left heart catheterization (LHC) (~12/27/17) History of bilateral hip replacements Social History Smoking Status: Never smoker alcohol intake: current alcohol intake frequency: holidays/special occasions only Alcohol type: wine substance use type: does not use caffeine: Yes Type: coffee what type of physical activity do you participate in: none seatbelt use: always do you feel safe at home: Yes Vital Signs Vital Signs Vital Signs: 05/11/25 13:33 05/11/25 13:54 05/11/25 14:49 Temperature 98 F 97.3 F L Temperature Source Temporal Temporal Pulse Rate 79 82 Pulse Strength Respiratory Rate 18 18 Respiratory Effort Normal Non-Labored Respiratory Depth Normal Respiratory Pattern Normal Blood Pressure 124/47 H 114/49 L Blood Pressure Mean 72 70 Blood Pressure Source Monitor Blood Pressure Position Semi-Fowlers Semi-Fowlers Blood Pressure Location Left Arm Left Arm Pulse Ox 98 98 Oxygen Delivery Method Room Air Room Air 05/11/25 14:54 05/11/25 15:54 05/11/25 17:38 Temperature 97.1 F L 97.2 F L 98.4 F Temperature Source Temporal Temporal Temporal Pulse Rate 79 78 81 Pulse Strength Respiratory Rate 18 18 16 Respiratory Effort Respiratory Depth Respiratory Pattern Blood Pressure 107/64 127/48 H 117/54 L Blood Pressure Mean 78 74 75 Blood Pressure Source Monitor Monitor Monitor Blood Pressure Position Semi-Fowlers Semi-Fowlers Semi-Fowlers Blood Pressure Location Left Arm Left Arm Left Arm Pulse Ox 99 97 97 Oxygen Delivery Method Room Air Room Air Room Air 05/11/25 17:53 05/11/25 18:53 05/11/25 19:46 Temperature 98.1 F 97.6 F L 98.4 F Temperature Source Temporal Temporal Temporal Pulse Rate 84 79 76 Pulse Strength Respiratory Rate 18 18 18 Respiratory Effort Respiratory Depth Respiratory Pattern Blood Pressure 113/49 L 127/47 H 129/49 H Blood Pressure Mean 70 73 75 Blood Pressure Source Monitor Monitor Monitor Blood Pressure Position Semi-Fowlers Semi-Fowlers Semi-Fowlers Blood Pressure Location Left Arm Left Arm Left Arm Pulse Ox 99 98 97 Oxygen Delivery Method Room Air Room Air Room Air 05/11/25 20:42 05/11/25 21:27 05/12/25 00:06 Temperature 98.4 F Temperature Source Temporal Pulse Rate 77 Pulse Strength Normal (2+) Respiratory Rate 16 Respiratory Effort Normal Non-Labored Respiratory Depth Normal Respiratory Pattern Normal Blood Pressure 128/48 H Blood Pressure Mean 74 Blood Pressure Source Monitor Blood Pressure Position Semi-Fowlers Blood Pressure Location Left Arm Pulse Ox 97 Oxygen Delivery Method Room Air Room Air 05/12/25 00:12 05/12/25 02:12 05/12/25 02:16 Temperature 98.9 F 97.9 F Temperature Source Temporal Temporal Pulse Rate 77 77 Pulse Strength Respiratory Rate 16 18 Respiratory Effort Respiratory Depth Respiratory Pattern Blood Pressure 130/58 H 126/62 H Blood Pressure Mean 82 83 Blood Pressure Source Monitor Monitor Blood Pressure Position Semi-Fowlers Semi-Fowlers Blood Pressure Location Left Arm Left Arm Pulse Ox 97 98 Oxygen Delivery Method Room Air Room Air Room Air 05/12/25 04:03 05/12/25 05:55 05/12/25 08:02 Temperature 98.9 F 99.0 F Temperature Source Temporal Oral Pulse Rate 71 75 Pulse Strength Normal (2+) Respiratory Rate 16 16 Respiratory Effort Respiratory Depth Respiratory Pattern Blood Pressure 142/53 H 143/59 H Blood Pressure Mean 82 87 Blood Pressure Source Monitor Monitor Blood Pressure Position Semi-Fowlers Semi-Fowlers Blood Pressure Location Left Arm Left Arm Pulse Ox 97 97 Oxygen Delivery Method Room Air Room Air 05/12/25 08:03 05/12/25 08:18 05/12/25 09:41 Temperature 98.5 F 97.0 F L Temperature Source Temporal Temporal Pulse Rate 79 73 Pulse Strength Respiratory Rate 18 16 Respiratory Effort Normal Non-Labored Respiratory Depth Normal Respiratory Pattern Normal Blood Pressure 128/52 H 111/44 L Blood Pressure Mean 77 66 Blood Pressure Source Monitor Monitor Blood Pressure Position Semi-Fowlers Semi-Fowlers Blood Pressure Location Left Arm Left Arm Pulse Ox 98 98 Oxygen Delivery Method Room Air Room Air Room Air Weight Weight: 75.6 kg Body Mass Index (BMI) 27.3 EEG Results Procedure Details EEG Procedure Details: GOGO WARE is a 85 year old F with a past medical history of , who presents for evaluation of Electroencephalogram on DATE at TIME Physical Exam Narrative Exam: Alert and oriented to self only EOMI, L facial droop Mild dysarthria and aphasia Following commands BLUE antigravity without drift BLLE wiggles toes FTN intact NIHSS = 11 = 1 orientation, 2 facial droop, 1 dysarthria, 1 aphasia, 3 RLE, 3 LLE Lab / Micro Data 05/12/25 11:29 05/12/25 11:29 Labs: Laboratory Results - last 24 hr 05/11/25 10:15: Blood Type AB POSITIVE, Antibody Screen NEGATIVE, Crossmatch See Detail 05/12/25 11:29: WBC 7.3, RBC 2.74 L, Hgb 8.3 L, Hct 24.6 L, MCV 89.8, MCH 30.3, MCHC 33.7, RDW Std Deviation 48.1 H, RDW Coeff of Alex 14.8 H, Plt Count 129 L, MPV 10.1, Immature Gran % (Auto) 0.700, Neut % (Auto) 76.4 H, Lymph % (Auto) 10.7 L, [place] % (Auto) 10.9 H, Eos % (Auto) 1.2, Baso % (Auto) 0.1, Absolute Neuts (auto) 5.5, Absolute Lymphs (auto) 0.78 L, Nucleated RBC % 0, Sodium 137, Potassium 4.0, Chloride 109 H, Carbon Dioxide 19.5 L, Anion Gap 8, BUN 23 H, C reatinine 0.68 L, Estim Creat Clear Calc 51.35, Est GFR (MDRD) Non-Af 85, B UN/Creatinine Ratio 34.0 H, Glucose 168 H, Calcium 7.8 Imaging Radiology Impression Brain MRI 05/11/25 12:05 IMPRESSION: 1. Numerous scattered small foci of acute infarct throughout the bilateral cerebral and cerebellar hemispheres as described, presumably embolic. 2. Background of moderate-advanced chronic small-vessel ischemic changes, with several foci of chronic lacunar infarct mainly involving the left cerebral periventricular white matter. 3. No intracranial hemorrhage, extra-axial collection, or mass-effect. Reading Location: [id number] Echocardiogram 05/11/25 19:18 Interpretation Summary The estimated ejection fraction is 65 %. Stage 2 diastolic dysfunction. The left atrium is mildly enlarged. Stable appearing bioprosthetic aortic valve apparatus. Mean peak gradient 24 mmHg. Mild (1+) tricuspid valve insufficiency. Pulmonary artery systolic pressure is 52 mmHg. Contrast injection was performed. Ordering Physician: Sourav Casiano Performed By: José Manuel Siddiqui and Student Active Medications Active Medications Active Medications: Current Medications Generic Name Dose Route Start Last Admin Trade Name Freq PRN Reason Stop Dose Admin Acetaminophen 650 mg 05/07/25 15:28 05/11/25 07:54 Acetaminophen 325 Mg Tablet PO 650 mg Q6H PRN PRN Administration Pain 1-10 Or Fever >100.7 Apixaban 5 mg 05/10/25 10:00 05/12/25 08:11 Apixaban 5 Mg Tablet PO 5 mg BID ROBE Administration Aspirin 81 mg 05/08/25 08:00 05/12/25 08:10 Aspirin 81 Mg Tab.Chew PO 81 mg BREAKFAST ROBE Administration Atorvastatin Calcium 40 mg 05/07/25 22:00 05/11/25 21:30 Atorvastatin Calcium 40 Mg Tablet PO Not Given QHS ROBE Brimonidine Tartrate 1 drp 05/07/25 22:00 05/12/25 08:12 Brimonidine 0.2% 5ml Bottle EACH EYE 1 drp BID ROBE Administration Calcium Carbonate 500 mg 05/09/25 12:00 05/12/25 12:28 Calcium Carbonate 500 Mg Tablet PO Not Given TIDCM ROBE Carvedilol 12.5 mg 05/07/25 17:00 05/12/25 08:10 Carvedilol 12.5 Mg Tablet PO 12.5 mg BIDCM ROBE Administration Protocol Dorzolamide/Timolol 1 drp 05/07/25 22:00 05/12/25 08:11 Dorzolamide Hcl/Timolol 10 Ml Bottle EACH EYE 1 drp BID ROBE Administration Hydralazine HCl 5 mg 05/12/25 09:41 Hydralazine 20 Mg/Ml Vial IV 05/13/25 09:41 Q30M PRN maintain BP parameters with HR <60 Hydromorphone HCl 0.5 mg 05/10/25 12:43 Hydromorphone 0.5 Mg/0.5 Ml Syringe IV Q3H PRN PRN Pain Score 6-10 Sodium Chloride 250 mls @ 15 mls/hr 05/09/25 15:53 IV .[id number] PRN Additional IVPB Infusion Labetalol HCl 10 - 20 mg 05/12/25 09:41 Labetalol 20 Mg/4 Ml Vial IV 05/13/25 09:41 Q10M PRN PRN maintain BP parameters with HR >/=60 Latanoprost 1 drp 05/07/25 22:00 05/11/25 21:30 Latanoprost 0.005% 1 Bottle OPHTHALMIC 1 drp QHS ROBE Administration Losartan Potassium 25 mg 05/08/25 10:00 05/12/25 08:11 Losartan Potassium 25 Mg Tablet PO 25 mg DAILY ROBE Administration Protocol Ondansetron HCl 4 mg 05/07/25 15:28 Ondansetron 4 Mg/2 Ml Vial IV Q8H PRN PRN NAUSEA/VOMITING Oxycodone HCl 5 mg 05/10/25 12:43 Oxycodone 5 Mg Tablet PO Q4H PRN PRN Pain Score 4-10 Senna/Docusate Sodium 2 tablet 05/07/25 22:00 05/12/25 08:11 Senna/Docusate Sodium 1 Tablet PO 2 tablet BID ROBE Administration Sodium Chloride 10 - 40 ml 05/07/25 16:06 05/11/25 17:33 0.9% Saline Lock 10 Ml Syringe IV 10 ml UD PRN Administration SALINE FLUSH Sodium Chloride 10 - 40 ml 05/09/25 15:53 0.9% Saline Lock 10 Ml Syringe IV UD PRN SALINE FLUSH Temazepam 30 mg 05/07/25 22:00 05/09/25 21:48 Temazepam 15 Mg Capsule PO 30 mg QHS PRN Administration SLEEP NIHSS NIHSS Nursing Documentation NIHSS Nursing Documentation: NIHSS: Ischemic Stroke/TIA Start: 05/12/25 09:41 Freq: [id number] Status: Active Protocol: Activity Type Activity Date Activity User E-sign Co-sign Detail Recorded Client Recorded Date Recorded By Document 05/12/25 12:32 [facility] [id number] 05/12/25 12:41 [facility] 05/12/25 12:32 NIH Stroke Scale [NIHSS] A score of 0 is normal or asymptomatic . Total possible score is 42. Inpatient: RN or Physician to activate a stroke alert for onset of new stroke symptoms or with NIHSS increase >/= 3 points. Following change in neurological status, NIHSS will be performed per physician order or more frequently PRN. -1a. Level of Consciousness 0 - Alert; keenly responsive -1b. LOC Questions 2 - Answers NEITHER question correctly -1c. LOC Commands 0 - Performs BOTH tasks correctly -2. Best Gaze 0 - Normal -3. Visual 0 - No visual loss -4. Facial Palsy 1 - Minor paralysis ( flattened nasolabial fold , asymmetry on smiling) -5a. Left Arm 0 - No drift; arm holds 90 ( or 45) degrees for full 10 seconds -5b. Right Arm 0 - No drift; arm holds 90 ( or 45) degrees for full 10 seconds -6a. Left Leg 0 - No drift; leg holds 30- degree position for full 5 seconds -6b. Right Leg 2 - Some effort against gravity; -7. Limb Ataxia 1 - Present in 1 limb -8. Sensory 0 - Normal; no sensory loss -9. Best Language 1 - Mild-to- moderate aphasia; -10. Dysarthria 1 = Mild-to- moderate dysarthria; -11. Extinction and Inattention 0 - No abnormality -Total 8 Query Text:A score of 0 is normal or asymptomatic. Total possible score is 42 . ED: Notify Physician for NIHSS increase by > / = 3 points. Inpatient: RN or Physician to activate a stroke alert for NIHSS increase of > / = 3 points.
--- NOTE | 2025-05-12 15:56 | CASEMGMT ---
Social Work JOSEF spoke with Claribel in Inpatient Rehab. Pt is being evaluated for placement at . JOSEF will follow up on this referral tomorrow after pt has had therapy again for reevaluation by [facility]. JONO Dowell
--- NOTE | 2025-05-12 16:12 | PN.HOSP_ITS ---
Reason for Visit Chief Complaint: Left leg injury, inability to ambulate Objective Data Objective Data Vital Signs: Vital Signs Temp Pulse Resp BP Pulse Ox O2 Del Method 98.8 F 65 16 140/59 H 100 Room Air 05/12/25 15:59 05/12/25 15:59 05/12/25 15:59 05/12/25 15:59 05/12/25 15:59 05/12/25 15:59 Oxygen Delivery Method Room Air Weight: 166 lb 10.711 oz Body Mass Index (BMI) 27.3 Intake & Output: Intake and Output for Last 24 Hours 05/10/25 05/11/25 05/12/25 23:59 23:59 23:59 Intake Total 1337.08 / 1437.08 3265.00 / 3265.00 1000 / 1000 Output Total 200 / 200 1100 / 1900 1150 / 1150 Balance 1137.08 / 1237.08 2165.00 / 1365.00 -150 / -150 Lab / Micro Data 05/12/25 11:29 05/12/25 11:29 Labs: Laboratory Results - last 24 hr 05/11/25 10:15: Blood Type AB POSITIVE, Antibody Screen NEGATIVE, Crossmatch See Detail 05/12/25 11:29: WBC 7.3, RBC 2.74 L, Hgb 8.3 L, Hct 24.6 L, MCV 89.8, MCH 30.3, MCHC 33.7, RDW Std Deviation 48.1 H, RDW Coeff of Alex 14.8 H, Plt Count 129 L, MPV 10.1, Immature Gran % (Auto) 0.700, Neut % (Auto) 76.4 H, Lymph % (Auto) 10.7 L, Dickey % (Auto) 10.9 H, Eos % (Auto) 1.2, Baso % (Auto) 0.1, Absolute Neuts (auto) 5.5, Absolute Lymphs (auto) 0.78 L, Nucleated RBC % 0, Sodium 137, Potassium 4.0, Chloride 109 H, Carbon Dioxide 19.5 L, Anion Gap 8, B UN 23 H, Creatinine 0.68 L, Estim Creat Clear Calc 51.35, Est GFR (MDRD) Non-Af 85, BUN/Creatinine Ratio 34.0 H, Glucose 168 H, Calcium 7.8 Radiography Diagnostic Testing: Radiology Impression Brain MRI 05/11/25 12:05 IMPRESSION: 1. Numerous scattered small foci of acute infarct throughout the bilateral cerebral and cerebellar hemispheres as described, presumably embolic. 2. Background of moderate-advanced chronic small-vessel ischemic changes, with several foci of chronic lacunar infarct mainly involving the left cerebral periventricular white matter. 3. No intracranial hemorrhage, extra-axial collection, or mass-effect. Reading Location: [facility] Echocardiogram 05/11/25 19:18 Interpretation Summary The estimated ejection fraction is 65 %. Stage 2 diastolic dysfunction. The left atrium is mildly enlarged. Stable appearing bioprosthetic aortic valve apparatus. Mean peak gradient 24 mmHg. Mild (1+) tricuspid valve insufficiency. Pulmonary artery systolic pressure is 52 mmHg. Contrast injection was performed. Ordering Physician: Sourav Casiano Performed By: José Manuel Siddiqui and Student Physical Exam Narrative Seen and examined Patient has slow speech and slurred. Chronic left-sided facial droop. Found to have a small stroke suspected embolic stroke on MRI. Physical exam General: Alert, Oriented x3, Cooperative. BMI 27.3 kg/m? HEENT: Atraumatic, PERRLA, EOMI, Normocephalic. Oral: No Gingival or Mucosal Lesions/ Ulcerations Neck: Supple, No JVD, Negative Carotid Bruits Chest wall/Lungs: Air entry equal in bilateral lung bases. No crepitation/rhonchi Cardiovascular: Regular rate and rhythm, Normal S1,S2, No M/G/R Abdomen: Bowel Sounds Present, Soft, Non Tender, Non-Distended : No dysuria. No renal angle tenderness. No suprapubic tenderness. Extremities: No edema, Capillary Refill Less than 3 Seconds Skin: Surgical dressing over left hip is dry Musculoskeletal: No Tenderness to Palpation of Joints or Extremities. Muscle strength 4/5 at left leg at hip joint with recent surgery. NIH stroke scale 8 with mild aphasia and dysarthria. Neurological: Cranial nerves II-XII grossly intact, DTR 2+/4. Mild slurring speech. Psych/Mental Status: Flat affect Assessment & Plan Assessment/Plan (1) Femoral distal fracture: QUALIFIERS: Encounter type: initial encounter Fracture type: c losed Laterality: left PLAN: Plan Patient was admitted with distal left femur fracture and underwent ORIF on 05/10/2025. Later on stroke alert was called for patient having slurred speech and encephalopathy therefore transferred from [facility] to PCU. 1. Left distal femur fracture secondary to osteoporosis- 05/12: Patient had left distal femoral shaft spiral fracture for which she had ORIF. PT OT to continue. #2. Acute stroke suspected embolic with numerous scattered in bilateral cerebral and cerebellar hemispheres: Etiology cryptogenic. Patient had MRI which was reviewed by the neurologist and reported numerous scattered small foci of acute infarct throughout the bilateral cerebral and cerebellar hemispheres as described, presumably embolic. Chronic moderate-advanced chronic small-vessel ischemic changes, with several foci of chronic lacunar infarct mainly involving the left cerebral periventricular white matter. Patient was evaluated by neurologist. Continue baby aspirin and Eliquis. On high intensity statin. Neurologist recommended 30-day event monitor. Follow-up with neurology as an outpatient. 2D echo left atrium mildly enlarged prominent eustachian valve. Mild TR PASP 52 mmHg. Stable appearing bioprosthetic aortic valve/TAVR. Mean AV gradient 24 mmHg. Earlier echo reported intact atrial septum in June [address] Abraham Sheppard CTA no flow-limiting stenosis or LVO. 3. History of valvular heart disease with recent TAVR-patient appears medically stable 4. Coronary artery disease-patient appears medically stable at this time, I will hold her Plavix for now #4 essential hypertension-patient will remain on her current medications #5 chronic use of anticoagulant-patient is on Eliquis #6 glaucoma-patient will remain on her eyedrops #7 acute anemia secondary to left distal femur fracture-patient's hemoglobin this morning was 6.3, patient will receive 2 units of packed red blood cells, CBC will be repeated tomorrow 05/12, repeat hemoglobin 8.3/24%. Platelet count 1 29K. #8 transient episode of slurred speech-etiology unclear, will have an MRI of the brain performed today #9 leukocytosis-etiology unclear, patient's white blood cell count today was normal, Leukocytosis has resolved. Patient is not on antibiotic, discontinued earlier. #10 encephalopathy probably due to embolic stroke as mentioned above: Encephalopathy has resolved. Laboratory Results 05/11/25 10:15: Blood Type AB POSITIVE, Antibody Screen NEGATIVE, Crossmatch See Detail 05/12/25 11:29: WBC 7.3, RBC 2.74 L, Hgb 8.3 L, Hct 24.6 L, MCV 89.8, MCH 30.3, MCHC 33.7, RDW Std Deviation 48.1 H, RDW Coeff of Alex 14.8 H, Plt Count 129 L, MPV 10.1, Immature Gran % (Auto) 0.700, Neut % (Auto) 76.4 H, Lymph % (Auto) 10.7 L, Dickey % (Auto) 10.9 H, Eos % (Auto) 1.2, Baso % (Auto) 0.1, Absolute Neuts (auto) 5.5, Absolute Lymphs (auto) 0.78 L, Nucleated RBC % 0, Sodium 137, Potassium 4.0, Chloride 109 H, Carbon Dioxide 19.5 L, Anion Gap 8, BUN 23 H, C reatinine 0.68 L, Estim Creat Clear Calc 51.35, Est GFR (MDRD) Non-Af 85, B UN/Creatinine Ratio 34.0 H, Glucose 168 H, Calcium 7.8 Clinical Impression(s) from Imaging Studies Pelvis X-Ray 05/07/25 07:21 IMPRESSION: A spiral FRACTURE of the distal left femoral shaft is seen, with some override also present. No intra-articular extension is clearly evident. 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 In visualized areas, no evidence of prosthesis loosening or metallic fracture is seen. Vascular stent is seen overlying the right femoral neck. Mild sacroiliac joint degenerative changes are noted. Prominent degenerative changes of the visualized lower lumbar spine are seen. [id number] degenerative changes of the visualized portions of the left knee. Reading Location: [address] Femur X-Ray 07/11/25 07:24 IMPRESSION: A spiral FRACTURE of the distal left femoral shaft is seen, with some override also present. No intra-articular extension is clearly evident. 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 In visualized areas, no evidence of prosthesis loosening or metallic fracture is seen. Vascular stent is seen overlying the right femoral neck. Mild sacroiliac joint degenerative changes are noted. Prominent degenerative changes of the visualized lower lumbar spine are seen. [id number] degenerative changes of the visualized portions of the left knee. Reading Location: [id number] Femur X-Ray 05/09/25 08:00 IMPRESSION: Anatomic alignment [facility] 05/10/25 09:24 IMPRESSION: CHRONIC CHANGES. NO ACUTE FINDINGS. Reading Location: [facility] Head/Neck CTA 05/10/25 09:35 IMPRESSION: Atherosclerotic calcific plaques at the origin of the right and left internal carotid arteries as described. Red Alert: Nothing acute The critical information above was relayed directly by me by telephone to Sourav Casiano on 05/10/2025 at 9:55 am with readback verification. Reading Location: [facility] Brain MRI 05/11/25 12:05 IMPRESSION: 1. Numerous scattered small foci of acute infarct throughout the bilateral cerebral and cerebellar hemispheres as described, presumably embolic. 2. Background of moderate-advanced chronic small-vessel ischemic changes, with several foci of chronic lacunar infarct mainly involving the left cerebral periventricular white matter. 3. No intracranial hemorrhage, extra-axial collection, or mass-effect. Echocardiogram 05/11/25 19:18 Interpretation Summary The estimated ejection fraction is 65 %. Stage 2 diastolic dysfunction. The left atrium is mildly enlarged. Stable appearing bioprosthetic aortic valve apparatus. Mean peak gradient 24 mmHg. Mild (1+) tricuspid valve insufficiency. Pulmonary artery systolic pressure is 52 mmHg. Contrast injection was performed. Ordering Physician: Sourav Casiano Performed By: José Manuel Siddiqui and Student Charges/Coding Addendum Addendum: Total time of the visit including total time spent in counseling or coordination of care, (more than 50% of the total time, spent in obtaining medical information from nurses and other ancillary care providers ,explaining to the patient about labs, imaging, diagnosis and management of active complex medical conditions), discussion with the neurologist, review of labs and imaging is 35 minutes. Visit Charges Inpatient E&M: 42847 Subs Hosp L3 NIHSS NIHSS Nursing Documentation NIHSS Nursing Documentation: NIHSS: Ischemic Stroke/TIA Start: 05/12/25 09:41 Freq: [id number] Status: Active Protocol: Activity Type Activity Date Activity User E-sign Co-sign Detail Recorded Client Recorded Date Recorded By Document 05/12/25 12:32 [facility] [id number] 05/12/25 12:41 [facility] 05/12/25 12:32 NIH Stroke Scale [NIHSS] A score of 0 is normal or asymptomatic . Total possible score is 42. Inpatient: RN or Physician to activate a stroke alert for onset of new stroke symptoms or with NIHSS increase >/= 3 points. Following change in neurological status, NIHSS will be performed per physician order or more frequently PRN. -1a. Level of Consciousness 0 - Alert; keenly responsive -1b. LOC Questions 2 - Answers NEITHER question correctly -1c. LOC Commands 0 - Performs BOTH tasks correctly -2. Best Gaze 0 - Normal -3. Visual 0 - No visual loss -4. Facial Palsy 1 - Minor paralysis ( flattened nasolabial fold , asymmetry on smiling) -5a. Left Arm 0 - No drift; arm holds 90 ( or 45) degrees for full 10 seconds -5b. Right Arm 0 - No drift; arm holds 90 ( or 45) degrees for full 10 seconds -6a. Left Leg 0 - No drift; leg holds 30- degree position for full 5 seconds -6b. Right Leg 2 - Some effort against gravity; -7. Limb Ataxia 1 - Present in 1 limb -8. Sensory 0 - Normal; no sensory loss -9. Best Language 1 - Mild-to- moderate aphasia; -10. Dysarthria 1 = Mild-to- moderate dysarthria; -11. Extinction and Inattention 0 - No abnormality -Total 8 Query Text:A score of 0 is normal or asymptomatic. Total possible score is 42 . ED: Notify Physician for NIHSS increase by > / = 3 points. Inpatient: RN or Physician to activate a stroke alert for NIHSS increase of > / = 3 points.
--- NOTE | 2025-05-12 18:21 | NURSING ---
Stroke teaching deferred at this time d/t aphasia.
[2025-05-12] MEDS: 0.9% Saline Lock 10 ML Syringe IV (20:54)
[2025-05-12] MEDS: Latanoprost 0.005% 1 Bottle 1 DRP OPHTHALMIC (21:03)
[2025-05-13] VITALS (7 sets, daily range): BP systolic 147–177; BP diastolic 51–70; PULSE 63–73; RESP 17–18; TEMP 36.2–37.4; O2SAT 95–100; BMI 27.3
[2025-05-13 05:58] LABS: Hematocrit 26.3 % (37-47); Hemoglobin 8.8 g/dL (12.0-15.0); Immature Granulocytes Count 0.050 X10^3/uL (0.0-0.0); Mean Corp Hgb Conc 33.5 g/dL (32-36); Mean Corpuscular Volume 90.4 fL (81-99); Mean Platelet Vol. 9.6 fl (6.2-12.0); NRBC Flagged by Analyzer 0 % (0-5); Platelet Count 149 K/mm3 (150-450); RBC Distribution Width CV 14.8 % (11.6-14.6); RBC Distribution Width SD 48.9 fl (35.1-43.9); Red Blood Count 2.91 M/mm3 (4.2-5.4); White Blood Count 7.9 K/mm3 (4.4-11.0)
[2025-05-13 06:34] LABS: Cholesterol 122 mg/dL (<=200); Low Density Lipoprotein Calc. 61 mg/dL; Triglycerides 133 mg/dL; Very Low Density Lipoprotein 27 mg/dL (5-40); cholesterol:hdl ratio screen 3.58
[2025-05-13] MEDS: BRIMONIDINE 0.2% 5ML BOTTLE 1 DRP EACH EYE ×2 (09:15→20:59)
[2025-05-13] MEDS: Dorzolamide HCL/Timolol 10 ml Bottle 1 DRP EACH EYE ×2 (09:15→20:59)
[2025-05-13] MEDS: APIXABAN 5 MG TABLET PO ×2 (09:16→21:02)
[2025-05-13] MEDS: Senna/Docusate Sodium 1 Tablet 2 TABLET PO ×2 (09:16→21:02)
--- NOTE | 2025-05-13 11:06 | PN.NEURO_ITS ---
Objective Data Objective Data Vital Signs: Vital Signs Temp Pulse Resp BP Pulse Ox O2 Del Method 97.2 F L 73 17 177/70 H 100 Room Air 05/13/25 09:10 05/13/25 09:10 05/13/25 09:10 05/13/25 09:10 05/13/25 09:10 05/13/25 09:10 Oxygen Delivery Method Room Air Weight: 75.6 kg Body Mass Index (BMI) 27.3 Intake & Output: Intake and Output for Last 24 Hours 05/11/25 05/12/25 05/13/25 23:59 23:59 23:59 Intake Total 3265.00 / 3265.00 1000 / 1000 Output Total 1100 / 1900 1650 / 2100 850 / 850 Balance 2165.00 / 1365.00 -650 / -1100 -850 / -850 Lab / Micro Data 05/13/25 05:30 05/12/25 11:29 Labs: Laboratory Results - last 24 hr 05/12/25 11:29: WBC 7.3, RBC 2.74 L, Hgb 8.3 L, Hct 24.6 L, MCV 89.8, MCH 30.3, MCHC 33.7, RDW Std Deviation 48.1 H, RDW Coeff of Alex 14.8 H, Plt Count 129 L, MPV 10.1, Immature Gran % (Auto) 0.700, Neut % (Auto) 76.4 H, Lymph % (Auto) 10.7 L, Pen[place]ton % (Auto) 10.9 H, Eos % (Auto) 1.2, Baso % (Auto) 0.1, Absolute Neuts (auto) 5.5, Absolute Lymphs (auto) 0.78 L, Nucleated RBC % 0, Sodium 137, Potassium 4.0, Chloride 109 H, Carbon Dioxide 19.5 L, Anion Gap 8, BUN 23 H, C reatinine 0.68 L, Estim Creat Clear Calc 51.35, Est GFR (MDRD) Non-Af 85, B UN/Creatinine Ratio 34.0 H, Glucose 168 H, Calcium 7.8 05/12/25 23:58: POC Glucose 124 H 05/13/25 05:30: WBC 7.9, RBC 2.91 L, Hgb 8.8 L, Hct 26.3 L, MCV 90.4, MCH 30.2, MCHC 33.5, RDW Std Deviation 48.9 H, RDW Coeff of Alex 14.8 H, Plt Count 149 L, MPV 9.6, Immature Gran % (Auto) 0.600, Neut % (Auto) 70.8 H, Lymph % (Auto) 14.8 L, [place] % (Auto) 11.2 H, Eos % (Auto) 2.3, Baso % (Auto) 0.3, Absolute Neuts (auto) 5.6, Absolute Lymphs (auto) 1.16, Nucleated RBC % 0, Hemoglobin A1c 5.5, Triglycerides 133, Cholesterol 122, LDL Cholesterol, Calc 61, VLDL Cholesterol 27, HDL Cholesterol 34 L, Cholesterol/HDL Ratio 3.58, TSH 2.480 05/13/25 06:28: POC Glucose 119 H Micro: Microbiology 05/10/25 18:33 Blood Culture (Wb) - Anticubital Right Blood Culture - Preliminary No growth in 48 hours. Radiography Diagnostic Testing: Radiology Impression Echocardiogram 05/11/25 19:18 Interpretation Summary The estimated ejection fraction is 65 %. Stage 2 diastolic dysfunction. The left atrium is mildly enlarged. Stable appearing bioprosthetic aortic valve apparatus. Mean peak gradient 24 mmHg. Mild (1+) tricuspid valve insufficiency. Pulmonary artery systolic pressure is 52 mmHg. Contrast injection was performed. Ordering Physician: Sourav Casiano Performed By: José Manuel Siddiqui and Student Subject: Neurology Subjective I did not see the patient today, I reviewed pertinent pending data to provide final recommendations EEG Results Procedure Details EEG Procedure Details: GOGO WARE is a 85 year old F with a past medical history of , who presents for evaluation of Electroencephalogram on DATE at TIME Assessment and Plan: Stroke Assessment/Plan GOGO WARE is a 85 yo F with PMH of TAVR and CAD on plavyx, VTE on Eliquis, HTN, and Glaucoma who is admitted to [place] for L femur fracture s/p L ORIF on 05/09/25. Neurovascular consulted after patient was evaluated for L facial droop (chronic) and altered mentation post op and was found to have acute ischemia on MRI. Numerous Scattered Small Acute Stroke in BL Cerebral and Cerebellar Hemispheres Etiology: Cryptogenic, ESUS CT/CTA completed. CTH showed prior periventricular L lacunar stroke but otherwise non acute; CTA showed bilateral ICAD without severe flow limiting stenosis or occlusion. TTE complete. EF 65%, mild LVH, LA mildly enlarged. Stable AV bioprosthesis. LDL is 61, Continue Atorvastatin 40 mg qhs A1c is 5.5, Continue ensuring glycemic control AC/AP Plan: Patient is already on Eliquis for VTE history, and on ASA (prior to hospitalize Plavix per chart review) for CAD/TAVR. She is planned to continue these at discharge. As she is already on AC/AP therapy, would not add additional AC/AP to this regimen. Would recommend railroad passenger agent/30-day event monitor at discharge Would recommend vascular risk factor modification ? LDL Goal < 70 ? Smoking Cessation ? Diabetes Management ? watermelon harvesting supervisor blood pressure control should achieve <130/80 mmHg. BP management should aim to achieve terminal make up operator contorl in a reasonable amount of time, taking into consideration the individual patient's requirements and characteristics. ? Weight Management: Goal for BMI is 18.5 -24.9 kg/mg ? Alcohol: No more than 2 drinks/day for men or 1 drink/day for non- women ? Promote lifestyle modification: weight control, physical activity, moderation of alcohol intake, moderate sodium intake. PT/OT/FUNDING SPECIALIST consultations Follow up in Neurovascular Clinic [place] 4-6 Weeks after discharge. Ensure PCP follow up in 1- 2 weeks. Cardiology follow up as needed. NIHSS NIHSS Nursing Documentation NIHSS Nursing Documentation: NIHSS: Ischemic Stroke/TIA Start: 05/12/25 09:41 Freq: [id number] Status: Active Protocol: Activity Type Activity Date Activity User E-sign Co-sign Detail Recorded Client Recorded Date Recorded By Document 05/13/25 07:18 EM desktop 05/13/25 07:20 EM 05/13/25 07:18 NIH Stroke Scale [NIHSS] A score of 0 is normal or asymptomatic . Total possible score is 42. Inpatient: RN or Physician to activate a stroke alert for onset of new stroke symptoms or with NIHSS increase >/= 3 points. Following change in neurological status, NIHSS will be performed per physician order or more frequently PRN. -1a. Level of Consciousness 0 - Alert; keenly responsive -1b. LOC Questions 1 - Answers ONE question correctly -1c. LOC Commands 0 - Performs BOTH tasks correctly -2. Best Gaze 0 - Normal -3. Visual 0 - No visual loss -4. Facial Palsy 1 - Minor paralysis ( flattened nasolabial fold , asymmetry on smiling) -5a. Left Arm 0 - No drift; arm holds 90 ( or 45) degrees for full 10 seconds -5b. Right Arm 0 - No drift; arm holds 90 ( or 45) degrees for full 10 seconds -6a. Left Leg 3 - No effort against gravity ; leg falls to bed immediately -6b. Right Leg 2 - Some effort against gravity; -7. Limb Ataxia 1 - Present in 1 limb -8. Sensory 0 - Normal; no sensory loss -9. Best Language 1 - Mild-to- moderate aphasia; -10. Dysarthria 1 = Mild-to- moderate dysarthria; -11. Extinction and Inattention 0 - No abnormality -Total 10 Query Text:A score of 0 is normal or asymptomatic. Total possible score is 42 . ED: Notify Physician for NIHSS increase by > / = 3 points. Inpatient: RN or Physician to activate a stroke alert for NIHSS increase of > / = 3 points. Coma Scale [Assess] -Eye Opening Spontaneous -Motor Obeys Commands -Verbal Confused [Total] -Coma Scale Total 14
--- NOTE | 2025-05-13 15:34 | CASEMGMT ---
Social Work SW spoke with Claribel in [facility] post acute. Pt has been accepted to TCU and precert has been started (pt not appropriate for Rehab unit at this time). JOSEF met with pt and notified and pt is agreeable. With pt permission, phone call to pt HCPOA/friend Nicole Zuluaga and updated her on discharge plan. agreeable. Plan: TCU, pending precert JONO Rao
--- NOTE | 2025-05-13 15:54 | CASEMGMT ---
Social Work PHQ9 depression screen completed as pt has had a stroke. Score of 0 indicating no depression. JONO Rao
--- NOTE | 2025-05-13 16:06 | PCM.PN.HOSP ---
Reason for Visit Chief Complaint: Left leg injury, inability to ambulate Objective Data Objective Data Vital Signs: Vital Signs Temp Pulse Resp BP Pulse Ox O2 Del Method 97.2 F L 63 18 147/51 H 95 Room Air 05/13/25 13:01 05/13/25 13:01 05/13/25 13:01 05/13/25 13:01 05/13/25 14:10 05/13/25 14:10 Oxygen Delivery Method Room Air Weight: 166 lb 10.711 oz Body Mass Index (BMI) 27.3 Intake & Output: Intake and Output for Last 24 Hours 05/11/25 05/12/25 05/13/25 23:59 23:59 23:59 Intake Total 3265.00 / 3265.00 1000 / 1000 320 / 320 Output Total 1100 / 1900 1650 / 2100 1300 / 1300 Balance 2165.00 / 1365.00 -650 / -1100 -980 / -980 Lab / Micro Data 05/13/25 05:30 05/12/25 11:29 Labs: Laboratory Results - last 24 hr 05/12/25 23:58: POC Glucose 124 H 05/13/25 05:30: WBC 7.9, RBC 2.91 L, Hgb 8.8 L, Hct 26.3 L, MCV 90.4, MCH 30.2, MCHC 33.5, RDW Std Deviation 48.9 H, RDW Coeff of Alex 14.8 H, Plt Count 149 L, MPV 9.6, Immature Gran % (Auto) 0.600, Neut % (Auto) 70.8 H, Lymph % (Auto) 14.8 L, Alpine % (Auto) 11.2 H, Eos % (Auto) 2.3, Baso % (Auto) 0.3, Absolute Neuts (auto) 5.6, Absolute Lymphs (auto) 1.16, Nucleated RBC % 0, Hemoglobin A1c 5.5, Triglycerides 133, Cholesterol 122, LDL Cholesterol, Calc 61, VLDL Cholesterol 27, HDL Cholesterol 34 L, Cholesterol/HDL Ratio 3.58, TSH 2.480 05/13/25 06:28: POC Glucose 119 H Micro: Microbiology 05/10/25 18:33 Blood Culture (Wb) - Anticubital Right Blood Culture - Preliminary No growth in 48 hours. Physical Exam Narrative Seen and examined No acute issues. Pre-CERT pending Patient has slow speech and slurred. Chronic left-sided facial droop. Found to have a small stroke suspected embolic stroke on MRI. Physical exam General: Alert, Oriented x3, Cooperative. BMI 27.3 kg/m? HEENT: Atraumatic, PERRLA, EOMI, Normocephalic. Oral: No Gingival or Mucosal Lesions/ Ulcerations Neck: Supple, No JVD, Negative Carotid Bruits Chest wall/Lungs: Air entry equal in bilateral lung bases. No crepitation/rhonchi Cardiovascular: Regular rate and rhythm, Normal S1,S2, No M/G/R Abdomen: Bowel Sounds Present, Soft, Non Tender, Non-Distended : No dysuria. No renal angle tenderness. No suprapubic tenderness. Extremities: No edema, Capillary Refill Less than 3 Seconds Skin: Surgical dressing over left hip is dry Musculoskeletal: No Tenderness to Palpation of Joints or Extremities. Muscle strength 4/5 at left leg at hip joint with recent surgery. Right leg also weak, hits bed within 5 seconds NIH stroke scale 8 with mild aphasia and dysarthria. Neurological: Cranial nerves II-XII grossly intact, DTR 2+/4. Mild slurring speech. Psych/Mental Status: Flat affect Assessment & Plan Assessment/Plan (1) Femoral distal fracture: QUALIFIERS: Encounter type: initial encounter Fracture type: closed Laterality: left PLAN: Plan Patient was admitted with distal left femur fracture and underwent ORIF on 05/10/2025. Later on stroke alert was called for patient having slurred speech and encephalopathy therefore transferred from [facility] to PCU. 1. Left distal femur fracture secondary to osteoporosis- 05/12: Patient had left distal femoral shaft spiral fracture for which she had ORIF. PT OT to continue. #2. Acute stroke suspected embolic with numerous scattered in bilateral cerebral and cerebellar hemispheres: Etiology cryptogenic. Patient had MRI which was reviewed by the neurologist and reported numerous scattered small foci of acute infarct throughout the bilateral cerebral and cerebellar hemispheres as described, presumably embolic. Chronic moderate-advanced chronic small-vessel ischemic changes, with several foci of chronic lacunar infarct mainly involving the left cerebral periventricular white matter. Patient was evaluated by neurologist. Continue baby aspirin and Eliquis. On high intensity statin. Neurologist recommended 30-day event monitor. Follow-up with neurology as an outpatient. 2D echo left atrium mildly enlarged prominent eustachian valve. Mild TR PASP 52 mmHg. Stable appearing bioprosthetic aortic valve/TAVR. Mean AV gradient 24 mmHg. Earlier echo reported intact atrial septum in June [address] Abraham Sheppard CTA no flow-limiting stenosis or LVO. 05/13: Workup is complete. Pending pre-CERT. Patient on baby aspirin, Plavix and atorvastatin.Hemoglobin A1c 5.5, Triglycerides 133, Cholesterol 122, LDL Cholesterol, Calc 61, VLDL Cholesterol 27, HDL Cholesterol 34 L, TSH 2.480 3. History of valvular heart disease with recent TAVR-patient appears medically stable 4. Coronary artery disease-patient appears medically stable at this time, I will hold her Plavix for now #4 essential hypertension-patient will remain on her current medications #5 chronic use of anticoagulant-patient is on Eliquis #6 glaucoma-patient will remain on her eyedrops #7 acute anemia secondary to left distal femur fracture-patient's hemoglobin this morning was 6.3, patient will receive 2 units of packed red blood cells, CBC will be repeated tomorrow 05/12, repeat hemoglobin 8.3/24%. Platelet count 1 29K. #8 transient episode of slurred speech-etiology unclear, will have an MRI of the brain performed today #9 leukocytosis-etiology unclear, patient's white blood cell count today was normal, Leukocytosis has resolved. Patient is not on antibiotic, discontinued earlier. #10 encephalopathy probably due to embolic stroke as mentioned above: Encephalopathy has resolved. Microbiology Past 72 Hours 05/10/25 18:33 Blood Culture (Wb) - Anticubital Right Blood Culture - Preliminary No growth in 48 hours. Laboratory Results 05/12/25 23:58: POC Glucose 124 H 05/13/25 05:30: WBC 7.9, RBC 2.91 L, Hgb 8.8 L, Hct 26.3 L, MCV 90.4, MCH 30.2, MCHC 33.5, RDW Std Deviation 48.9 H, RDW Coeff of Alex 14.8 H, Plt Count 149 L, MPV 9.6, Immature Gran % (Auto) 0.600, Neut % (Auto) 70.8 H, Lymph % (Auto) 14.8 L, Alpine % (Auto) 11.2 H, Eos % (Auto) 2.3, Baso % (Auto) 0.3, Absolute Neuts (auto) 5.6, Absolute Lymphs (auto) 1.16, Nucleated RBC % 0, Hemoglobin A1c 5.5, Triglycerides 133, Cholesterol 122, LDL Cholesterol, Calc 61, VLDL Cholesterol 27, HDL Cholesterol 34 L, Cholesterol/HDL Ratio 3.58, TSH 2.480 05/13/25 06:28: POC Glucose 119 H Laboratory Results 05/11/25 10:15: Blood Type AB POSITIVE, Antibody Screen NEGATIVE, Crossmatch See Detail 05/12/25 11:29: WBC 7.3, RBC 2.74 L, Hgb 8.3 L, Hct 24.6 L, MCV 89.8, MCH 30.3, MCHC 33.7, RDW Std Deviation 48.1 H, RDW Coeff of Alex 14.8 H, Plt Count 129 L, MPV 10.1, Immature Gran % (Auto) 0.700, Neut % (Auto) 76.4 H, Lymph % (Auto) 10.7 L, Alpine % (Auto) 10.9 H, Eos % (Auto) 1.2, Baso % (Auto) 0.1, Absolute Neuts (auto) 5.5, Absolute Lymphs (auto) 0.78 L, Nucleated RBC % 0, Sodium 137, Potassium 4.0, Chloride 109 H, Carbon Dioxide 19.5 L, Anion Gap 8, BUN 23 H, Creatinine 0.68 L, Estim Creat Clear Calc 51.35, Est GFR (MDRD) Non-Af 85, BUN/Creatinine Ratio 34.0 H, Glucose 168 H, Calcium 7.8 Clinical Impression(s) from Imaging Studies Pelvis X-Ray 05/07/25 07:21 IMPRESSION: A spiral FRACTURE of the distal left femoral shaft is seen, with some override also present. No intra-articular extension is clearly evident. 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 In visualized areas, no evidence of prosthesis loosening or metallic fracture is seen. Vascular stent is seen overlying the right femoral neck. Mild sacroiliac joint degenerative changes are noted. Prominent degenerative changes of the visualized lower lumbar spine are seen. [id number] degenerative changes of the visualized portions of the left knee. Reading Location: [id number] Femur X-Ray 05/07/25 07:24 IMPRESSION: A spiral FRACTURE of the distal left femoral shaft is seen, with some override also present. No intra-articular extension is clearly evident. 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 In visualized areas, no evidence of prosthesis loosening or metallic fracture is seen. Vascular stent is seen overlying the right femoral neck. Mild sacroiliac joint degenerative changes are noted. Prominent degenerative changes of the visualized lower lumbar spine are seen. [id number] degenerative changes of the visualized portions of the left knee. Reading Location: [id number] Femur X-Ray 05/09/25 08:00 IMPRESSION: Anatomic alignment Reading Location: [facility] Brain CT 05/10/25 09:24 IMPRESSION: CHRONIC CHANGES. NO ACUTE FINDINGS. Reading Location: [facility] Head/Neck CTA 05/10/25 09:35 IMPRESSION: Atherosclerotic calcific plaques at the origin of the right and left internal carotid arteries as described. Red Alert: Nothing acute The critical information above was relayed directly by me by telephone to Sourav Casiano on 05/10/2025 at 9:55 am with readback verification. Reading Location: [facility]IR-1 Brain MRI 05/11/25 12:05 IMPRESSION: 1. Numerous scattered small foci of acute infarct throughout the bilateral cerebral and cerebellar hemispheres as described, presumably embolic. 2. Background of moderate-advanced chronic small-vessel ischemic changes, with several foci of chronic lacunar infarct mainly involving the left cerebral periventricular white matter. 3. No intracranial hemorrhage, extra-axial collection, or mass-effect. Echocardiogram 05/11/25 19:18 Interpretation Summary The estimated ejection fraction is 65 %. Stage 2 diastolic dysfunction. The left atrium is mildly enlarged. Stable appearing bioprosthetic aortic valve apparatus. Mean peak gradient 24 mmHg. Mild (1+) tricuspid valve insufficiency. Pulmonary artery systolic pressure is 52 mmHg. Contrast injection was performed. Ordering Physician: Sourav Casiano Performed By: José Manuel Siddiqui and Student Charges/Coding Visit Charges Inpatient E&M: 70430 Subs Hosp L2 NIHSS NIHSS Nursing Documentation NIHSS Nursing Documentation: NIHSS: Ischemic Stroke/TIA Start: 05/12/25 09:41 Freq: [id number] Status: Active Protocol: Activity Type Activity Date Activity User E-sign Co-sign Detail Recorded Client Recorded Date Recorded By Document 05/13/25 11:18 EM [id number] 05/13/25 13:00 EM 05/13/25 11:18 NIH Stroke Scale [NIHSS] A score of 0 is normal or asymptomatic . Total possible score is 42. Inpatient: RN or Physician to activate a stroke alert for onset of new stroke symptoms or with NIHSS increase >/= 3 points. Following change in neurological status, NIHSS will be performed per physician order or more frequently PRN. -1a. Level of Consciousness 0 - Alert; keenly responsive -1b. LOC Questions 2 - Answers NEITHER question correctly -2. Best Gaze 0 - Normal -3. Visual 0 - No visual loss -4. Facial Palsy 1 - Minor paralysis ( flattened nasolabial fold , asymmetry on smiling) -5a. Left Arm 0 - No drift; arm holds 90 ( or 45) degrees for full 10 seconds -5b. Right Arm 0 - No drift; arm holds 90 ( or 45) degrees for full 10 seconds -6a. Left Leg 3 - No effort against gravity ; leg falls to bed immediately -6b. Right Leg 0 - No drift; leg holds 30- degree position for full 5 seconds -7. Limb Ataxia 1 - Present in 1 limb -8. Sensory 0 - Normal; no sensory loss -9. Best Language 1 - Mild-to- moderate aphasia; -10. Dysarthria 1 = Mild-to- moderate dysarthria; -11. Extinction and Inattention 0 - No abnormality -Total 9 Query Text:A score of 0 is normal or asymptomatic. Total possible score is 42 . ED: Notify Physician for NIHSS increase by > / = 3 points. Inpatient: RN or Physician to activate a stroke alert for NIHSS increase of > / = 3 points. Coma Scale [Assess] -Eye Opening Spontaneous -Motor Obeys Commands -Verbal Confused [Total] -Coma Scale Total 14
[2025-05-13] MEDS: Latanoprost 0.005% 1 Bottle 1 DRP OPHTHALMIC (21:00)
[2025-05-13] MEDS: 0.9% Saline Lock 10 ML Syringe IV (21:00)
[2025-05-14 00:24] VITALS: BMI 27.3
[2025-05-14 03:15] VITALS: BP 181/63; PULSE 72; RESP 17; TEMP 36.6; O2SAT 99
[2025-05-14 04:21] VITALS: BP 181/63; PULSE 72
[2025-05-14] MEDS: 0.9% Saline Lock 10 ML Syringe IV (04:22)
[2025-05-14 06:23] LABS: Hematocrit 28.0 % (37-47); Hemoglobin 9.5 g/dL (12.0-15.0); Immature Granulocytes Count 0.070 X10^3/uL (0.0-0.0); Mean Corp Hgb Conc 33.9 g/dL (32-36); Mean Corpuscular Volume 90.0 fL (81-99); Mean Platelet Vol. 9.7 fl (6.2-12.0); NRBC Flagged by Analyzer 0 % (0-5); Platelet Count 186 K/mm3 (150-450); RBC Distribution Width CV 14.6 % (11.6-14.6); RBC Distribution Width SD 47.7 fl (35.1-43.9); Red Blood Count 3.11 M/mm3 (4.2-5.4); White Blood Count 7.5 K/mm3 (4.4-11.0)
[2025-05-14 06:31] VITALS: BP 165/62; PULSE 72; RESP 16; TEMP 36.6; O2SAT 100
--- NOTE | 2025-05-14 10:01 | PCM.TXEXTCAR ---
Diet Diet Order/Speech Therapy: INPATIENT Hospital Diet / Speech Therapy Order(s) 05/11/25 15:25 Diet: Cardiac - Heart Healthy Food consistency:: Regular Liquid Consistency:: Regular/Thin Type of Dietary Supplement:: Ensure Plus High Protein Diet Comments: 240mL ensure plus HP w/ breakfast tray Routine Orders/Code Status Suppository Type: Dulcolax 10mg Suppository Frequency: Daily PRN DC O2, CPAP, BIPAP needs Home O2 Discharge instructions: No Wound(s) LEFT HIP: Wound Type: Surgical Incision Therapies Extremity Affected:: Bilateral Lower Physical Therapy: Eval and Treat Occupational Therapy: Eval and Treat Speech Therapy: Eval and Treat Problem/Diagnosis (1) Femoral distal fracture: Status: Acute Code(s): S72.409A - Unspecified fracture of lower end of unspecified femur, initial encounter for closed fracture Plan Patient was admitted with distal left femur fracture and underwent ORIF on 05/10/2025. Later on stroke alert was called for patient having slurred speech and encephalopathy therefore transferred from [facility] to PCU. 1. Left distal femur fracture secondary to osteoporosis- 05/12: Patient had left distal femoral shaft spiral fracture for which she had ORIF. PT OT to continue. #2. Acute stroke suspected embolic with numerous scattered in bilateral cerebral and cerebellar hemispheres: Etiology cryptogenic. Patient had MRI which was reviewed by the neurologist and reported numerous scattered small foci of acute infarct throughout the bilateral cerebral and cerebellar hemispheres as described, presumably embolic. Chronic moderate-advanced chronic small-vessel ischemic changes, with several foci of chronic lacunar infarct mainly involving the left cerebral periventricular white matter. Patient was evaluated by neurologist. Continue baby aspirin and Eliquis. On high intensity statin. Neurologist recommended 30-day event monitor. Follow-up with neurology as an outpatient. 2D echo left atrium mildly enlarged prominent eustachian valve. Mild TR PASP 52 mmHg. Stable appearing bioprosthetic aortic valve/TAVR. Mean AV gradient 24 mmHg. Earlier echo reported intact atrial septum in June [address] Abraham Sheppard CTA no flow-limiting stenosis or LVO. 05/13: Workup is complete. Pending pre-CERT. Patient on baby aspirin, Plavix and atorvastatin.Hemoglobin A1c 5.5, Triglycerides 133, Cholesterol 122, LDL Cholesterol, Calc 61, VLDL Cholesterol 27, HDL Cholesterol 34 L, TSH 2.480 3. History of valvular heart disease with recent TAVR-patient appears medically stable 4. Coronary artery disease-patient appears medically stable at this time, I will hold her Plavix for now #4 essential hypertension-patient will remain on her current medications #5 chronic use of anticoagulant-patient is on Eliquis #6 glaucoma-patient will remain on her eyedrops #7 acute anemia secondary to left distal femur fracture-patient's hemoglobin this morning was 6.3, patient will receive 2 units of packed red blood cells, CBC will be repeated tomorrow 05/12, repeat hemoglobin 8.3/24%. Platelet count 1 29K. #8 transient episode of slurred speech-etiology unclear, will have an MRI of the brain performed today #9 leukocytosis-etiology unclear, patient's white blood cell count today was normal, Leukocytosis has resolved. Patient is not on antibiotic, discontinued earlier. #10 encephalopathy probably due to embolic stroke as mentioned above: Encephalopathy has resolved. Microbiology Past 72 Hours 05/10/25 18:33 Blood Culture (Wb) - Anticubital Right Blood Culture - Preliminary No growth in 48 hours. Laboratory Results 05/12/25 23:58: POC Glucose 124 H 05/13/25 05:30: WBC 7.9, RBC 2.91 L, Hgb 8.8 L, Hct 26.3 L, MCV 90.4, MCH 30.2, MCHC 33.5, RDW Std Deviation 48.9 H, RDW Coeff of Alex 14.8 H, Plt Count 149 L, MPV 9.6, Immature Gran % (Auto) 0.600, Neut % (Auto) 70.8 H, Lymph % (Auto) 14.8 L, Hernando % (Auto) 11.2 H, Eos % (Auto) 2.3, Baso % (Auto) 0.3, Absolute Neuts (auto) 5.6, Absolute Lymphs (auto) 1.16, Nucleated RBC % 0, Hemoglobin A1c 5.5, Triglycerides 133, Cholesterol 122, LDL Cholesterol, Calc 61, VLDL Cholesterol 27, HDL Cholesterol 34 L, Cholesterol/HDL Ratio 3.58, TSH 2.480 05/13/25 06:28: POC Glucose 119 H Laboratory Results 05/11/25 10:15: Blood Type AB POSITIVE, Antibody Screen NEGATIVE, Crossmatch See Detail 05/12/25 11:29: WBC 7.3, RBC 2.74 L, Hgb 8.3 L, Hct 24.6 L, MCV 89.8, MCH 30.3, MCHC 33.7, RDW Std Deviation 48.1 H, RDW Coeff of Alex 14.8 H, Plt Count 129 L, MPV 10.1, Immature Gran % (Auto) 0.700, Neut % (Auto) 76.4 H, Lymph % (Auto) 10.7 L, Hernando % (Auto) 10.9 H, Eos % (Auto) 1.2, Baso % (Auto) 0.1, Absolute Neuts (auto) 5.5, Absolute Lymphs (auto) 0.78 L, Nucleated RBC % 0, Sodium 137, Potassium 4.0, Chloride 109 H, Carbon Dioxide 19.5 L, Anion Gap 8, BUN 23 H, Creatinine 0.68 L, Estim Creat Clear Calc 51.35, Est GFR (MDRD) Non-Af 85, BUN/Creatinine Ratio 34.0 H, Glucose 168 H, Calcium 7.8 Clinical Impression(s) from Imaging Studies Pelvis X-Ray 05/07/25 07:21 IMPRESSION: A spiral FRACTURE of the distal left femoral shaft is seen, with some override also present. No intra-articular extension is clearly evident. 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 In visualized areas, no evidence of prosthesis loosening or metallic fracture is seen. Vascular stent is seen overlying the right femoral neck. Mild sacroiliac joint degenerative changes are noted. Prominent degenerative changes of the visualized lower lumbar spine are seen. [id number] degenerative changes of the visualized portions of the left knee. Reading Location: [id number] Femur X-Ray 05/07/25 07:24 IMPRESSION: A spiral FRACTURE of the distal left femoral shaft is seen, with some override also present. No intra-articular extension is clearly evident. 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 In visualized areas, no evidence of prosthesis loosening or metallic fracture is seen. Vascular stent is seen overlying the right femoral neck. Mild sacroiliac joint degenerative changes are noted. Prominent degenerative changes of the visualized lower lumbar spine are seen. [id number] degenerative changes of the visualized portions of the left knee. Reading Location: [id number] Femur X-Ray 05/09/25 08:00 IMPRESSION: Anatomic alignment Reading Location: [facility] Brain CT 05/10/25 09:24 IMPRESSION: CHRONIC CHANGES. NO ACUTE FINDINGS. Reading Location: [facility] Head/Neck CTA 05/10/25 09:35 IMPRESSION: Atherosclerotic calcific plaques at the origin of the right and left internal carotid arteries as described. Red Alert: Nothing acute The critical information above was relayed directly by me by telephone to Sourav Casiano on 05/10/2025 at 9:55 am with readback verification. Reading Location: [facility] Brain MRI 05/11/25 12:05 IMPRESSION: 1. Numerous scattered small foci of acute infarct throughout the bilateral cerebral and cerebellar hemispheres as described, presumably embolic. 2. Background of moderate-advanced chronic small-vessel ischemic changes, with several foci of chronic lacunar infarct mainly involving the left cerebral periventricular white matter. 3. No intracranial hemorrhage, extra-axial collection, or mass-effect. Echocardiogram 05/11/25 19:18 Interpretation Summary The estimated ejection fraction is 65 %. Stage 2 diastolic dysfunction. The left atrium is mildly enlarged. Stable appearing bioprosthetic aortic valve apparatus. Mean peak gradient 24 mmHg. Mild (1+) tricuspid valve insufficiency. Pulmonary artery systolic pressure is 52 mmHg. Contrast injection was performed. Ordering Physician: Sourav Casiano Performed By: José Manuel Siddiqui and Student Allergies/Procedures Done in Hospital Allergies No Known Allergies Allergy (Verified 03/16/24 14:09) Type of Care/Length of Stay Estimated LOS: Convalescent Care Less Than 30 days Type of Care Needed: Skilled Rehab Potential: Good Prognosis: Good Additional Orders/Day of Discharge Day of Discharge: 05/14/25 Dietary and Speech Recommendations Dietitian Recommendations/Changes: Continue Cardiac diet to manage medical conditions. Continue 240mL ensure plus HP w/ breakfast tray. Liberalize diet as needed if PO regresses at meals. Discharge Plan Admission Admit Date/Time: 05/07/25 13:32 Primary Reason for Your Visit: Left hip fracture, bilateral embolic stroke Attending Provider: Manny Murdock Primary Care Provider: Eh Huddleston Chi [employer] Providers: Sourav Casiano; Santhosh Livingston; Nathan Heredia; Des Link; Georgina Sosa; Sondra Lira; Elva Maxwell; Seng Daniel; Deann Santana; Piero Richard; Alejandro Zafar; Armin Street; Melissa Quinonez; Malachi Charles; Kayla Perez; Maikel Arreaga; Maria Guadalupe Rocha; Domenic Blanco; Mp Petersen; Yordan Alfaro; Yolanda Arriola; Benjamín Trinidad Discharge Orders/Prescriptions Prescriptions: New atorvastatin 40 mg Tablet 40 mg PO QHS Qty: 0 0RF sennosides-docusate sodium [Stimulant Laxative Plus] 8.6-50 mg Tablet 2 tab PO BID Qty: 0 0RF pantoprazole 40 mg Tablet,Delayed Release (Dr/Ec) 40 mg PO DAILY Qty: 0 0RF losartan 25 mg Tablet 25 mg PO DAILY Qty: 0 0RF Rx Instructions: Hold for SBP less than 120 mmHg oxycodone 5 mg Tablet 2.5 - 5 mg PO Q4H PRN PRN (Reason: Pain Score 4-10) Qty: 0 0RF Rx Instructions: Oxycodone 2.5 mg for moderate pain and 5 mg for severe pain respectively. acetaminophen [Acetaminophen Pain Relief] 500 mg tablet 1,000 mg PO Q8H 30 Days Qty: 180 0RF Rx Instructions: 1 g, 3 times daily for 1 week and then 1 g Q8 hourly as needed for moderate to severe pain Continued latanoprost 0.005 % drops 1 drp OPHTHALMIC QPM brimonidine 1 DROP bottle 2 drp EACH EYE BID dorzolamide-timolol 10 ML drops 1 drp EACH EYE BID Patient Comments: clopidogrel 75 mg tablet 75 mg PO DAILY Eliquis 5 mg tablet 5 mg PO BID temazepam 30 mg capsule 30 mg PO DAILY carvedilol 12.5 mg tablet 12.5 mg PO BID Qty: 180 4RF Discontinued valsartan 160 mg tablet 80 mg PO DAILY Referrals / Follow Up: Alejandro Zafar MD [Med Staff - Contracted] - Santhosh Livingston DO [Med Staff - Active Staff] - Within 2 Weeks Natan Melendez MD [Non-Staff -Ordering Privileges] - Within 1 Month (FOR EMBOLIC STROKE) Eh Huddleston Chi, MD [Primary Care Provider] - Disposition Disposition (needs filled in before D/C Order can be placed): [facility] Facility (1) Femoral distal fracture Qualifiers: Encounter type: initial encounter Fracture type: closed Laterality: left
[2025-05-14] MEDS: Senna/Docusate Sodium 1 Tablet 2 TABLET PO (10:35)
[2025-05-14] MEDS: APIXABAN 5 MG TABLET PO (10:36)
[2025-05-14] MEDS: BRIMONIDINE 0.2% 5ML BOTTLE 1 DRP EACH EYE (10:37)
[2025-05-14] MEDS: Dorzolamide HCL/Timolol 10 ml Bottle 1 DRP EACH EYE (10:42)
[2025-05-14 11:28] VITALS: BP 129/43; PULSE 74; RESP 16; TEMP 36.6; O2SAT 100
--- NOTE | 2025-05-14 12:34 | CASEMGMT ---
Social Work Precert has been obtained and per physician, pt is ready for dc today. DC orders faxed to TCU and Claribel notified. SW met with pt and updated on discharged and pt is agreeable. Phone call to [facility] and notified of dc plans. Disposition: TCU, skilled level of care JONO Rao
--- NOTE | 2025-05-14 12:37 | PCM.DC.SUM ---
Providers Date of Admission: 05/07/25 Date of Discharge: 05/14/25 Primary Care Physician: Dr. Eh Huddleston MD Consultations 05/07/25 15:28 Consult: Orthopedics Routine Consulting Provider: Santhosh Livingston Reason for Consult: Left femur fracture EMERGENT Consult: No MD Notified: Yes Date Notified: 05/07/25 Time Notified: 13:42 Method of Notification: Verbal 05/11/25 19:18 Consult: Tele-Neurology Routine Consulting Provider: [facility] Reason for Consult: Embolic strokes EMERGENT Consult: No MD Notified: Yes Date Notified: 05/11/25 Time Notified: 23:45 Method of Notification: Answering Service Comments:: Patient on [facility] Staff Notify [facility] of Tele-Neurology Consult: Yes Reason For Visit: DISTAL LEFT FEMUR FRACTURE Diagnosis Discharge Diagnosis (1) Femoral distal fracture: Status: Acute Code(s): S72.409A - Unspecified fracture of lower end of unspecified femur, initial encounter for closed fracture Qualifiers: Encounter type: initial encounter Fracture type: closed Laterality: left Plan Patient was admitted with distal left femur fracture and underwent ORIF on 05/10/2025. Later on stroke alert was called for patient having slurred speech and encephalopathy therefore transferred from [facility] to PCU. 1. Left distal femur fracture secondary to osteoporosis- 05/12: Patient had left distal femoral shaft spiral fracture for which she had ORIF. PT OT to continue. 05/14: Dressing is dry but mild dry stain. Follow-up with orthopedic surgeon, Dr. Livingston within 2 weeks #2. Acute stroke suspected embolic with numerous scattered in bilateral cerebral and cerebellar hemispheres: Etiology cryptogenic. Patient had MRI which was reviewed by the neurologist and reported numerous scattered small foci of acute infarct throughout the bilateral cerebral and cerebellar hemispheres as described, presumably embolic. Chronic moderate-advanced chronic small-vessel ischemic changes, with several foci of chronic lacunar infarct mainly involving the left cerebral periventricular white matter. Patient was evaluated by neurologist. Continue baby aspirin and Eliquis. On high intensity statin. Neurologist recommended 30-day event monitor. Follow-up with neurology as an outpatient. 2D echo left atrium mildly enlarged prominent eustachian valve. Mild TR PASP 52 mmHg. Stable appearing bioprosthetic aortic valve/TAVR. Mean AV gradient 24 mmHg. Earlier echo reported intact atrial septum in June [address] Abraham Sheppard CTA no flow-limiting stenosis or LVO. 05/13: Workup is complete. Pending pre-CERT. Patient on baby aspirin, Plavix and atorvastatin.Hemoglobin A1c 5.5, Triglycerides 133, Cholesterol 122, LDL Cholesterol, Calc 61, VLDL Cholesterol 27, HDL Cholesterol 34 L, TSH 2.480. Diabetes ruled out. 05/14: Patient is going to be transferred to TCU for rehab 3. History of valvular heart disease with recent TAVR-patient appears medically stable 4. Coronary artery disease-patient appears medically stable at this time, I will hold her Plavix for now #4 essential hypertension-patient will remain on her current medications #5 chronic use of anticoagulant-patient is on Eliquis #6 glaucoma-patient will remain on her eyedrops #7 acute anemia secondary to left distal femur fracture-patient's hemoglobin this morning was 6.3, patient will receive 2 units of packed red blood cells, CBC will be repeated tomorrow 05/12, repeat hemoglobin 8.3/24%. Platelet count 129K. 05/14: H&H improved to 9.5/28%. On PPI. Patient denied any upper or lower GI bleed. #8 transient episode of slurred speech-etiology unclear, will have an MRI of the brain performed today #9 leukocytosis-etiology unclear, patient's white blood cell count today was normal, Leukocytosis has resolved. Patient is not on antibiotic, discontinued earlier. #10 encephalopathy probably due to embolic stroke as mentioned above: Encephalopathy has resolved. Discharge medication reconciliation done. Discharge follow-up instructions completed. Discharge process discussed with the patient and all questions were answered to patient's satisfaction. Follow with PCP in 1 to 2 weeks Total time spent, exact 35 minutes on discharge meds reconciliation, examination, coordination of care with nurses and ancillary staff, review of imaging and blood test and discussion with the patient on follow-up instructions. Clinical Impression(s) from Imaging Studies Pelvis X-Ray 05/07/25 07:21 IMPRESSION: A spiral FRACTURE of the distal left femoral shaft is seen, with some override also present. No intra-articular extension is clearly evident. 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 In visualized areas, no evidence of prosthesis loosening or metallic fracture is seen. Vascular stent is seen overlying the right femoral neck. Mild sacroiliac joint degenerative changes are noted. Prominent degenerative changes of the visualized lower lumbar spine are seen. [id number] degenerative changes of the visualized portions of the left knee. Reading Location: [id number] Femur X-Ray 05/07/25 07:24 IMPRESSION: A spiral FRACTURE of the distal left femoral shaft is seen, with some override also present. No intra-articular extension is clearly evident. 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 In visualized areas, no evidence of prosthesis loosening or metallic fracture is seen. Vascular stent is seen overlying the right femoral neck. Mild sacroiliac joint degenerative changes are noted. Prominent degenerative changes of the visualized lower lumbar spine are seen. [id number]-ebgqourk degenerative changes of the visualized portions of the left knee. Reading Location: [id number] Femur X-Ray 05/09/25 08:00 IMPRESSION: Anatomic alignment [facility] 05/10/25 09:24 IMPRESSION: CHRONIC CHANGES. NO ACUTE FINDINGS. Reading Location: [facility] Head/Neck CTA 05/10/25 09:35 IMPRESSION: Atherosclerotic calcific plaques at the origin of the right and left internal carotid arteries as described. Red Alert: Nothing acute The critical information above was relayed directly by me by telephone to Sourav Casiano on 05/10/2025 at 9:55 am with readback verification. Reading Location: [facility] Brain MRI 05/11/25 12:05 IMPRESSION: 1. Numerous scattered small foci of acute infarct throughout the bilateral cerebral and cerebellar hemispheres as described, presumably embolic. 2. Background of moderate-advanced chronic small-vessel ischemic changes, with several foci of chronic lacunar infarct mainly involving the left cerebral periventricular white matter. 3. No intracranial hemorrhage, extra-axial collection, or mass-effect. Echocardiogram 05/11/25 19:18 Interpretation Summary The estimated ejection fraction is 65 %. Stage 2 diastolic dysfunction. The left atrium is mildly enlarged. Stable appearing bioprosthetic aortic valve apparatus. Mean peak gradient 24 mmHg. Mild (1+) tricuspid valve insufficiency. Pulmonary artery systolic pressure is 52 mmHg. Contrast injection was performed. Ordering Physician: Sourav Casiano Performed By: José Manuel Siddiqui and Student Medications at Discharge Home Medications brimonidine 0.2 % eye drops 2 drp EACH EYE BID glaucoma 11/25/17 dorzolamide 22.3 mg-timolol 6.8 mg/mL eye drops 1 drp EACH EYE BID glaucoma 11/25/17 latanoprost 0.005 % eye drops 1 drp ophthalmic (eye) QPM 12/17/19 carvedilol 12.5 mg tablet 12.5 mg PO BID #180 tabs 11/03/24 apixaban 5 mg tablet (Eliquis) 5 mg PO BID 05/07/25 clopidogrel 75 mg tablet 75 mg PO DAILY 05/07/25 temazepam 30 mg capsule 30 mg PO DAILY 05/07/25 acetaminophen 500 mg tablet (Acetaminophen Pain Relief) 1,000 mg (2 x 500 mg) PO Q8H Pain 1-10 Or Fever >100.7 30 days #180 tabs 05/14/25 atorvastatin 40 mg tablet 40 mg PO QHS #0 tabs 05/14/25 losartan 25 mg tablet 25 mg PO DAILY #0 tabs 05/14/25 oxycodone 5 mg tablet 2.5 - 5 mg (0.5 - 1 x 5 mg) PO Q4H PRN PRN Pain Score 4-10 #0 tabs 05/14/25 pantoprazole 40 mg tablet,delayed release 40 mg PO DAILY #0 tabs 05/14/25 sennosides 8.6 mg-docusate sodium 50 mg tablet (Stimulant Laxative Plus) 2 tab PO BID #0 tabs 05/14/25 Physical Exam Narrative Seen and examined Patient complain of mild heaviness in the leg. Otherwise no acute issues. Patient has slow speech and slurred, mild echolalia. Chronic left-sided facial droop. Found to have a small stroke suspected embolic stroke on MRI. Physical exam General: Alert, Oriented x3, Cooperative. BMI 27.3 kg/m? HEENT: Atraumatic, PERRLA, EOMI, Normocephalic. Oral: No Gingival or Mucosal Lesions/ Ulcerations Neck: Supple, No JVD, Negative Carotid Bruits Chest wall/Lungs: Air entry equal in bilateral lung bases. No crepitation/rhonchi Cardiovascular: Regular rate and rhythm, Normal S1,S2, No M/G/R Abdomen: Bowel Sounds Present, Soft, Non Tender, Non-Distended : No dysuria. No renal angle tenderness. No suprapubic tenderness. Extremities: No edema, Capillary Refill Less than 3 Seconds Skin: Surgical dressing over left hip is dry Musculoskeletal: No Tenderness to Palpation of Joints or Extremities. Muscle strength 4/5 at left leg at hip joint with recent surgery. Right leg also weak, 4/5 Neurological: Cranial nerves II-XII grossly intact, DTR 2+/4. Mild slurring speech. Psych/Mental Status: Flat affect Weight / BMI Weight Weight: 166 lb 10.711 oz Body Mass Index (BMI) 27.3 ABG / Lab / Microbiology Data 05/14/25 06:00 05/12/25 11:29 Laboratory: Laboratory Results - last 24 hr 05/13/25 13:08: POC Glucose 131 H 05/13/25 16:51: POC Glucose 141 H 05/14/25 06:00: WBC 7.5, RBC 3.11 L, Hgb 9.5 L, Hct 28.0 L, MCV 90.0, MCH 30.5, MCHC 33.9, RDW Std Deviation 47.7 H, RDW Coeff of Alex 14.6, Plt Count 186, MPV 9.7, Immature Gran % (Auto) 0.900, Neut % (Auto) 67.5, Lymph % (Auto) 18.1 L, [place] % (Auto) 10.3 H, Eos % (Auto) 2.9, Baso % (Auto) 0.3, Absolute Neuts (auto) 5.1, Absolute Lymphs (auto) 1.36, Nucleated RBC % 0 Microbiology: Microbiology 05/10/25 18:33 Blood Culture (Wb) - Anticubital Right Blood Culture - Preliminary No growth in 48 hours. D/C Instructions DC O2, CPAP, BIPAP Needs Home O2 Discharge instructions: No Meaningful Use Info Meaningful Use Meaningful Use Diagnoses (Choose all that apply): Ischemic CVA CVA Therapy Assessed for PT,OT and/or ST?: Yes Ischemic Stroke Antithrombotic order at d/c?: Yes Dx of Atrial fib/flutter?: No Statins at discharge?: Yes Primary Dx Acute Ischemic CVA?: Yes Discharge Plan Admission Admit Date/Time: 05/07/25 13:32 Primary Reason for Your Visit: Left hip fracture, bilateral embolic stroke Attending Provider: Manny Murdock Primary Care Provider: Eh Huddleston Chi Consulting Providers: Sourav Casiano; Santhosh Livingston; Nathan Heredia; Des Link; Georgina Sosa; Sondra Lira; Elva Maxwell; Seng Daniel; Deann Santana; Piero Richard; Alejandro Zafar; Armin Street; Melissa Quinonez; Malachi Charles; Kayla Perez; Maikel Arreaga; Maria Guadalupe Rocha; Domenic Blanco; Mp Petersen; Yordan Alfaro; Yolanda Arriola; Benjamín Trinidad Discharge Orders/Prescriptions Prescriptions: New atorvastatin 40 mg Tablet 40 mg PO QHS Qty: 0 0RF sennosides-docusate sodium [Stimulant Laxative Plus] 8.6-50 mg Tablet 2 tab PO BID Qty: 0 0RF pantoprazole 40 mg Tablet,Delayed Release (Dr/Ec) 40 mg PO DAILY Qty: 0 0RF losartan 25 mg Tablet 25 mg PO DAILY Qty: 0 0RF Rx Instructions: Hold for SBP less than 120 mmHg oxycodone 5 mg Tablet 2.5 - 5 mg PO Q4H PRN PRN (Reason: Pain Score 4-10) Qty: 0 0RF Rx Instructions: Oxycodone 2.5 mg for moderate pain and 5 mg for severe pain respectively. acetaminophen [Acetaminophen Pain Relief] 500 mg tablet 1,000 mg PO Q8H 30 Days Qty: 180 0RF Rx Instructions: 1 g, 3 times daily for 1 week and then 1 g Q8 hourly as needed for moderate to severe pain Continued latanoprost 0.005 % drops 1 drp OPHTHALMIC QPM brimonidine 1 DROP bottle 2 drp EACH EYE BID dorzolamide-timolol 10 ML drops 1 drp EACH EYE BID Patient Comments: clopidogrel 75 mg tablet 75 mg PO DAILY Eliquis 5 mg tablet 5 mg PO BID temazepam 30 mg capsule 30 mg PO DAILY carvedilol 12.5 mg tablet 12.5 mg PO BID Qty: 180 4RF Discontinued valsartan 160 mg tablet 80 mg PO DAILY Other Ambulatory Orders: 30 Day Event Recorder Preventi (Urgent) Timeframe: 1 Day Facility: [facility] - Location: Cardiovascular Services Ordered By: Dr. Manny Murdock Referrals / Follow Up: Alejandro Zafar MD [Med Staff - Contracted] - Santhosh Livingston DO [Med Staff - Active Staff] - Within 2 Weeks Natan Melendez MD [Non-Staff -Ordering Privileges] - Within 1 Month (FOR EMBOLIC STROKE) Eh Huddleston Chi, MD [Primary Care Provider] - Disposition Disposition (needs filled in before D/C Order can be placed): [facility]
== END 2025-05-14 14:34 | disposition skilled nursing facility (03) | DRG 480 ==
LOC: ED 13:56 → MS3 14:51 → PCU 05-12 09:41
PROVIDERS: Anesthesiology; Student in an Organized Health Care Education/Training Program; Admitting Provider Internal Medicine; Emergency Provider Surgery; PCP Family Medicine Geriatric Medicine; Visit Provider Internal Medicine
PROC: 0QS904Z Reposition Left Femoral Shaft with Internal Fixation Device, Open Approach (ICD-10-PCS; CPT 27514; principal; 2025-05-09 08:00)
DX: S72.342A Displaced spiral fracture of shaft of left femur, initial encounter for closed fracture (principal); I63.89 Other cerebral infarction; G93.40 Encephalopathy, unspecified; D68.32 Hemorrhagic disorder due to extrinsic circulating anticoagulants; D62 Acute posthemorrhagic anemia; I10 Essential (primary) hypertension; Z95.2 Presence of prosthetic heart valve; I25.10 Atherosclerotic heart disease of native coronary artery without angina pectoris; I25.2 Old myocardial infarction; W19.XXXA Unspecified fall, initial encounter; M81.0 Age-related osteoporosis without current pathological fracture; H40.9 Unspecified glaucoma; Z96.643 Presence of artificial hip joint, bilateral; Z79.899 Other long term (current) drug therapy; Z79.01 Long term (current) use of anticoagulants; Z79.02 Long term (current) use of antithrombotics/antiplatelets
CPT/HCPCS: 36415; 70450; 70496; 70498; 70551; 72170; 73552; 76000; 80048; 80061; 81001; 82962; 83036; 84443; 84484; 85014; 85018; 85025; 85027; 85610; 86850; 86900; 86901; 87040; 92507; 92523; 93005; 93306; 97162; 97164; 97166; 97168; 97530; 97535; 99285; C1713; P9016; Q9957; Q9967; A4216; C8929; J2405

== ENCOUNTER 2025-05-14 14:44 | Inpatient (IN) | payer MEDICARE, SELFPAY ==
[2025-04-07 07:10] VITALS: BMI 28.1
[2025-05-14 15:07] VITALS: BP 148/64; PULSE 70; PULSE 78; RESP 18; TEMP 36.7; O2SAT 99; BMI 30.2
--- NOTE | 2025-05-14 15:13 | HP.PCM_ITS ---
HPI - General General Date of Admission: 05/14/25 Date of Service: 05/14/25 Chief Complaint: Here for rehabilitation. HPI Narrative GOGO WARE, is a 85 Female who presents with followin05/07/2025 [facility] ED fall. Tripped, twisted left upper leg, fell on bilateral knees, unable to walk 2/2 left thigh pain. X-ray shows left distal femur fracture. 05/07/2025 Admit [facility]. Prepare for surgery left distal femur fracture, hold Eliquis, hold Plavix. 05/08/2025 Left leg pain. Stable for surgery. 05/09/2025 Dr. Livingston performed ORIF left femoral shaft. 05/10/2025 Stroke alert, then cancelled. CT head negative, CTA head/neck negative. Check labs, urinalysis, patient states she wanted to . PT/OT SNF. 05/11/2025 MRI brain for somnolence. Hemoglobin 6.3, transfuse 2 units PRBC. Continue antibiotics, blood cultures pending. 05/11/2025 Echo EF 65%. Stage 2 diastolic dysfunction. Stable bioprosthetic aortic valve. PASP 52mm HG. 05/11/2025 MRI brain showed multiple strokes. 05/12/2025 PT/OT SNF. Aspirin, Eliquis, high intensity statin, 30 day event monitor for stroke. 05/13/2025 Pre-CERT TCU. 05/14/2025 Admit to TCU for debility, here for rehabilitation, strengthening, prior to discharge home alone. [facility] Medical History Laceration of leg Closed head injury Abrasions of multiple sites Laceration of lip Pure hypercholesterolemia Nonrheumatic aortic (valve) stenosis Non-ST elevation (NSTEMI) myocardial infarction Old myocardial infarction Atherosclerotic heart disease of [place] coronary artery without angina pectoris Essential hypertension Seborrheic keratosis Generalized weakness Fall Home Medications ?Medication ?Instructions ?Recorded ?Last Taken ?Type brimonidine 0.2 % eye drops 2 drp EACH EYE BID glaucom a 11/25/17 11/25/17 History dorzolamide 22.3 mg-timolol 6.8 1 drp EACH EYE BID gla ucoma 01/29/18 01/29/18 History mg/mL eye drops latanoprost 0.005 % eye drops 1 drp ophthalmic (eye) Q PM glaucoma 12/17/19 Unknown History carvedilol 12.5 mg tablet 12.5 mg PO BID BP/pulse #180 tabs 11/03/24 Unknown Rx apixaban 5 mg tablet (Eliquis) 5 mg PO BID blood thinn er 05/07/25 Unknown History clopidogrel 75 mg tablet 75 mg PO DAILY antiplatelet 05/07/25 Unknown History temazepam 30 mg capsule 30 mg PO DAILY sleep 5 Unknown History acetaminophen 500 mg tablet 1,000 mg (2 x 500 mg) PO Q 8H Pain 05/14/25 Unknown Rx (Acetaminophen Pain Relief) 1-10 Or Fever >100.7 30 da ys #180 tabs atorvastatin 40 mg tablet 40 mg PO QHS cholesterol #0 tabs 05/14/25 Unknown Rx losartan 25 mg tablet 25 mg PO DAILY BP #0 tabs Unknown Rx oxycodone 5 mg tablet 2.5 - 5 mg PO Q4H PRN PRN Pa in 05/14/25 Unknown History Score 4-10 pantoprazole 40 mg tablet,delayed 40 mg PO DAILY reflu x #0 tabs 05/14/25 Unknown Rx release sennosides 8.6 mg-docusate sodium 2 tab PO BID stool s oftener #0 tabs 05/14/25 Unknown Rx 50 mg tablet (Stimulant Laxative Plus) Allergy/AdvReac Type Severity Reaction Status Date / Time No Known Allergies Allergy Verified 03/16/24 14:09 Family History Father Diabetes Grandmother Colon cancer Surgical History History of left heart catheterization (LHC) (~12/27/17) History of bilateral hip replacements Social History (Updated 05/14/25 @ 15:[address] Eh Huddleston MD) household members: none Smoking Status: Smoker, status unknown alcohol intake: current alcohol intake frequency: holidays/special occasions only Alcohol type: wine substance use type: does not use caffeine: Yes Type: coffee what type of physical activity do you participate in: none seatbelt use: always do you feel safe at home: Yes ROS Constitutional Constitutional: Reports weakness; Denies chills, fever(s) or weight gain ENT HEENT: Denies headache(s), nasal congestion or nasal discharge Cardiovascular Cardiovascular: Denies chest pain or palpitations Respiratory/Chest Respiratory/Chest: Denies cough, excessive phlegm production or shortness of breath with exertion Gastrointestinal Gastrointestinal: Denies abdominal pain, nausea or vomiting Genitourinary Genitourinary: Denies dysuria Musculoskeletal Musculoskeletal: Denies joint pain or joint swelling Integumentary Integumentary: Denies rash or wounds Neurologic Neurologic: Denies focal weakness, numbness or tingling Psychiatric Psychiatric: Denies anxiety, auditory hallucinations, depression, homicidal ideation or suicidal ideation Vital Signs Vital Signs Vital Signs: 05/14/25 15:07 Temperature 98.0 F Temperature Source Temporal Pulse Rate 78 Respiratory Rate 18 Blood Pressure 148/64 H Blood Pressure Mean 92 Blood Pressure Source Monitor Blood Pressure Position Semi-Fowlers Blood Pressure Location Left Arm Pulse Ox 99 Oxygen Delivery Method Room Air Physical Exam Const alert General Appearance: cooperative HEENT normocephalic Eyes PERRL and EOMs intact bilaterally Neck supple, no JVD and no carotid bruits Resp normal respiratory effort, normal air movement and clear to auscultation bilaterally Cardio regular rate and regular rhythm GI normal to inspection, nondistended, normoactive bowel sounds, non-tender and non-distended Bladder / Kidney Exam: catheter in place urethral Extremity normal capillary refill General Extremity: Negative for edema Skin no rashes or lesions noted General Skin Exam: no breakdown Psych affect normal Appearance: appropriate Assessment & Plan Assessment/Plan (1) Debility: (2) Femoral distal fracture: QUALIFIERS: Encounter type: initial encounter Fracture type: closed Laterality: left (3) Stroke: (4) Essential (primary) hypertension: (5) Hyperlipidemia: (6) Coronary artery disease: (7) DVT (deep venous thrombosis): (8) Glaucoma: (9) Insomnia: PLAN: Plan 85 year old female with below past medical history hospitalized left distal femur fracture, underwent orif 05/09/[address] Livingston, postoperative course complicated by acute blood loss anemia requiring transfusion, stroke, urinary retention, admitted to TCU with debility, here for rehabilitation, strengthenin g, prior to discharge home alone. * Debility - PT/OT. * Pain - Tylenol 1000mg q8, Oxycodone 2.5mg - 5mg q4 prn pain. * Bowel - senna/colace 2 tablets bid, Magnesium citrate 300mL daily prn. * Adult immunization - Administer pneumonia vaccine, covid vaccine, flu vaccine as appropriate. * DVT prophylaxis - Eliquis. * Recurrent DVT - Eliquis 5mg bid. * Hyperlipidemia - Atorvastatin 40mg qhs. * Glaucoma - Brimonidine 2gtt ou bid, Dorzolamide/Timolol 1gtt ou bid, Latanoprost 1gtt ou qpm. * Coronary artery disease - Coreg 12.5mg bid, Losartan 25mg daily, Plavix 75mg daily, Eliquis 5mg bid. * Stroke - Plavix 75mg daily, Eliquis 5mg bid, 30 day event monitor. * GERD - Pantoprazole 40mg daily. * Urinary retention - Tamsulosin 0.4mg daily, indwelling rdz catheter, voiding trials. The following psychotropic medication was present on admission: Temazepam 30mg qhs. Psychotropic medication therapy is indicated for a diagnosis of: Insomnia. Based on my clinical evaluation, continuation of the medication is necessary at this time. Gradual dose reduction plan (select one): ____ GDR will be attempted. Will monitor patient symptoms and behaviors in response to GDR. __x__ GRD contraindicated. Reason contraindicated:
[2025-05-14] MEDS: BRIMONIDINE 0.2% 5ML BOTTLE 2 DRP EACH EYE (20:37)
[2025-05-14] MEDS: Dorzolamide HCL/Timolol 10 ml Bottle 1 DRP EACH EYE (20:39)
[2025-05-14] MEDS: Latanoprost 0.005% 1 Bottle 1 DRP OPHTHALMIC (20:41)
[2025-05-14] MEDS: APIXABAN 5 MG TABLET PO (20:45)
[2025-05-14] MEDS: Senna/Docusate Sodium 1 Tablet 2 TABLET PO (20:46)
[2025-05-14] MEDS: 0.9% Saline Lock 10 ML Syringe IV (21:00)
[2025-05-15 07:19] LABS: Hematocrit 25.4 % (37-47); Hemoglobin 8.4 g/dL (12.0-15.0); Immature Granulocytes Count 0.130 X10^3/uL (0.0-0.0); Mean Corp Hgb Conc 33.1 g/dL (32-36); Mean Corpuscular Volume 90.7 fL (81-99); Mean Platelet Vol. 9.5 fl (6.2-12.0); NRBC Flagged by Analyzer 0 % (0-5); Platelet Count 182 K/mm3 (150-450); RBC Distribution Width CV 14.6 % (11.6-14.6); RBC Distribution Width SD 48.5 fl (35.1-43.9); Red Blood Count 2.80 M/mm3 (4.2-5.4); White Blood Count 6.8 K/mm3 (4.4-11.0)
[2025-05-15 07:32] LABS: Anion Gap 8 (5-15); BUN 26 mg/dL (4-19); BUN/Creat Ratio 37.4 RATIO (10-20); Calcium,Total 8.3 mg/dL (7.6-11.0); Carbon Dioxide 22.8 mmol/L (21.0-32.0); Chloride 105 mmol/L (98-108); Estimated Creatinine Clearance 53.49 ml/min (50-250); Glucose 116 mg/dL (70-99); Potassium 4.1 mmol/L (3.3-5.1)
[2025-05-15 09:39] VITALS: BP 113/50; PULSE 72; RESP 16; TEMP 36.5; O2SAT 99
--- NOTE | 2025-05-15 09:41 | PHA.CONS_ITS ---
Documented by User: Vincent Maddox 05/15/25 10:11 TCU RX Drug Regimen Review Subjective/Objective Subjective/Objective Subjective: 85 year old female with be/low past medical history hospitalized left distal femur fracture, underwent orif 05/09/[address] Livingston, pos toperative course complicated by acute blood loss anemia requiring transfusion, stroke, urinary retention, admitted to TCU with debility, here for rehabilitation, strengthening, prior to discharge home alone. Objective: Allergies No Known Allergies Allergy (Verified 03/16/24 14:09) Current Medications Generic Name Dose Route Start Last Admin Trade Name Freq PRN Reason Stop Dose Admin Acetaminophen 1,000 mg 05/14/25 22:00 05/15/25 05:44 Acetaminophen 500 Mg Tablet PO 1,000 mg Q8 ROBE Administration Apixaban 5 mg 05/14/25 22:00 05/14/25 20:45 Apixaban 5 Mg Tablet PO 5 mg BID ROBE Administration Atorvastatin Calcium 40 mg 05/14/25 22:00 05/14/25 20:45 Atorvastatin Calcium 40 Mg Tablet PO 40 mg QHS ROBE Administration Brimonidine Tartrate 2 drp 05/14/25 22:00 05/14/25 20:37 Brimonidine 0.2% 5ml Bottle EACH EYE 2 drp BID ROBE Administration Carvedilol 12.5 mg 05/14/25 17:00 05/14/25 17:02 Carvedilol 12.5 Mg Tablet PO 12.5 mg BIDCM ROBE Administration Protocol Clopidogrel Bisulfate 75 mg 05/15/25 10:00 Clopidogrel Bisulfate 75 Mg Tablet PO DAILY ROBE Dorzolamide/Timolol 1 drp 05/14/25 22:00 05/14/25 20:39 Dorzolamide Hcl/Timolol 10 Ml Bottle EACH EYE 1 drp BID ROBE Administration Latanoprost 1 drp 05/14/25 22:00 05/14/25 20:41 Latanoprost 0.005% 1 Bottle OPHTHALMIC 1 drp QHS ROBE Administration Losartan Potassium 25 mg 05/15/25 10:00 Losartan Potassium 25 Mg Tablet PO DAILY ROBE Protocol Magnesium Citrate 300 ml 05/14/25 15:18 Magnesium Citrate 300 Ml PO X1 PRN Constipation Oxycodone HCl 2.5 - 5 mg 05/14/25 15:14 Oxycodone 5 Mg Tablet PO Q4H PRN PRN Pain Score 1-10 Pantoprazole Sodium 40 mg 05/15/25 10:00 Pantoprazole Sodium 40 Mg Tablet PO DAILY ROBE Senna/Docusate Sodium 2 tablet 05/14/25 22:00 05/14/25 20:46 Senna/Docusate Sodium 1 Tablet PO 2 tablet BID ROBE Administration Sodium Chloride 10 - 40 ml 05/14/25 20:33 05/14/25 21:00 0.9% Saline Lock 10 Ml Syringe IV 10 ml UD PRN Administration SALINE FLUSH Tamsulosin HCl 0.4 mg 05/14/25 17:30 05/14/25 17:02 Tamsulosin Hcl 0.4 Mg Capsule PO 0.4 mg DAILY@1730 ROBE Administration Temazepam 30 mg 05/14/25 22:00 05/14/25 20:52 Temazepam 15 Mg Capsule PO 30 mg QHS ROBE Administration Tuberculin PPD 0.1 ml 05/15/25 10:00 Tuberculin,Purif.Prot.Deriv. 50 Tu/Ml Vial ID 05/15/25 10:01 X1 ONE Tuberculin PPD 0.1 ml 05/22/25 10:00 Tuberculin,Purif.Prot.Deriv. 50 Tu/Ml Vial ID 05/22/25 10:01 X1 ONE Problem List Insomnia (Acute) Glaucoma (Acute) DVT (deep venous thrombosis) (Acute) Coronary artery disease (Acute) Hyperlipidemia (Acute) Essential (primary) hypertension (Acute) Stroke (Acute) Debility (Acute) Femoral distal fracture (Acute) Vital Signs Temp Pulse Resp BP Pulse Ox O2 Del Method 98.0 F 70 18 148/64 H 99 Room Air 05/14/25 15:07 05/14/25 15:07 05/14/25 15:07 05/14/25 15:07 05/14/25 15:07 05/14/25 15:07 Oxygen Delivery Method Room Air Weight: 82.327 kg Body Mass Index (BMI) 30.2 Sodium 136 mmol/L (133-145) 05/15/25 06:48 Potassium 4.1 mmol/L (3.3-5.1) 05/15/25 06:48 Chloride 105 mmol/L (98-108) 05/15/25 06:48 Carbon Dioxide 22.8 mmol/L (21.0-32.0) 05/15/25 06:48 Anion Gap 8 (5-15) 05/15/25 06:48 BUN 26 mg/dL (4-19) H 05/15/25 06:48 Creatinine 0.69 mg/dL (0.70-1.20) L 05/15/25 06:48 Est GFR (MDRD) Non-Af 84 (>60) 05/15/25 06:48 BUN/Creatinine Ratio 37.4 RATIO (10-20) H 05/15/25 06:48 Glucose 116 mg/dL (70-99) H 05/15/25 06:48 Assessment/Plan: 1. Pain: acetaminophen 1000 mg PO Q8H, oxycodone 2.5-5 mg PO Q4H PRN pain. The patient has not required any PRN doses of oxycodone so far this admission. Please continue to monitor pain levels, PRN medication usage, LFTs (AST/ALT = 53/12 U/L on 03/31/25), for constipation, respiratory depression, syncope/ataxia/falls, and for dizziness/drowsiness. 2. Bowel: senna/docusate 2 tablets PO BID, magnesium citrate 300 mL PO daily PRN constipation. Please continue to monitor for PRN medication usage (the patient has not used any PRN doses of magnesium citrate so far this admission), for bowel movements (the patient's last documented bowel movement was on 05/15/25), and for constipation and diarrhea. 3. Recurrent DVT: apixaban 5 mg PO BID. Please continue to monitor for s/s of DVT such as pain/swelling/erythema in an extremity, for s/s of bleeding/excessive bruising, hemoglobin levels (Hgb = 8.4 g/dL on 05/15/25), and platelet counts (Plt = 182 K/mm3 on 05/15/25). 4. Hyperlipidemia: atorvastatin 40 mg PO QHS. Please continue to monitor lipid levels (cholesterol = 122 mg/dL on 05/13/25), LDL levels (LDL = 61 mg/dL on 05/13/25), LFTs (AST/ALT = 53/12 U/L on 03/31/25), and for myalgias. 5. CAD/Stroke: carvedilol 12.5 mg PO BID, clopidogrel 75 mg Po daily, losartan 25 mg PO daily. Please continue to monitor for chest pain, for s/s of stroke, blood pressures (recent range = 113-181/43-70 mmHg), heart rates (recent range = 63-78 beats/min), for fatigue, for s/s of bleeding/excessive bruising, platelet counts (Plt = 182 K/mm3 on 05/15/25), renal function (serum creatinine = 0.69 mg/dL with creatinine clearance ~ 53 mL/min on 05/15/25), and potassium levels (K = 4.1 mmol/L on 05/15/25. 6. Glaucoma: brimonidine 2 drops in each eye BID, dorzolamide timolol 1 drop in each eye BID, latanoprost 1 drop in each eye QHS. Please continue to monitor eye health, blood pressures (recent range = 113-181/43-70 mmHg), blurry vision, burning/stinging in eyes, and eye pain. 7. GERD: pantoprazole 40 mg PO daily. Please continue to monitor for s/s of GERD, for diarrhea that could indicate clostridium difficile infection, and for s/s of bone resorption such as fractures. 8. Urinary retention: tamsulosin 0.4 mg daily. Please continue to monitor for urinary retention, and for s/s of orthostasis. Assessment/Plan for indications treated with psychotropic medications: 1. Insomnia: temazepam 30 mg PO QHS. This is a stable/chronic/long-term therapy therefore GDR likely contraindicated. Monitor for efficacy including resident symptoms, behaviors and indications of distress. Monitor for insomnia. Monitor for tolerability including mental status, cognition, excessive sleepiness, withdrawal or decreased participation in activities and decline in physical functioning. Maximize use of nonpharmacologic/behavioral interventions to facilitate dose reduction or discontinuation as appropriate. Please evaluate the appropriateness of GDR unless contraindicated. If appropriate, GDR should be attempted in 2 separate quarters within the first year of use or admission to TCU. If GDR attempted, monitor resident symptoms/behaviors.Monitor for sedation, mental status and cognition. Monitor for falls (risk factor for falls) and implement fall prevention strategies. Monitor for respiratory depression. RR range since admission = 16-18 breaths/min. Medical chart and medication regimen reviewed. The following medication irregularities or issues were identified: NA Date Date of Note: 05/15/25 Documented by User: Dr. Eh Huddleston MD 05/15/25 10:14 TCU RX Drug Regimen Review Provider Comments Provider responsibility Provider Comments to Recommendations by Pharmacy Agree
[2025-05-15] MEDS: Dorzolamide HCL/Timolol 10 ml Bottle 1 DRP EACH EYE (09:44)
[2025-05-15] MEDS: Senna/Docusate Sodium 1 Tablet 2 TABLET PO ×2 (09:44→21:05)
[2025-05-15] MEDS: APIXABAN 5 MG TABLET PO ×2 (09:44→21:04)
[2025-05-15] MEDS: BRIMONIDINE 0.2% 5ML BOTTLE 2 DRP EACH EYE (09:44)
[2025-05-15] MEDS: 0.9% Saline Lock 10 ML Syringe IV ×2 (09:46→21:05)
[2025-05-15] MEDS: Tuberculin,Purif.prot.deriv. 50 TU/ML Vial 0.1 ML ID (09:53)
[2025-05-15 18:13] VITALS: PULSE 72; RESP 16; O2SAT 97
[2025-05-15] MEDS: Latanoprost 0.005% 1 Bottle 1 DRP OPHTHALMIC (21:03)
[2025-05-15] MEDS: BRIMONIDINE 0.2% 5ML BOTTLE 2 DRP LEFT EYE (21:03)
[2025-05-15] MEDS: Dorzolamide HCL/Timolol 10 ml Bottle 1 DRP LEFT EYE (21:04)
--- NOTE | 2025-05-16 00:09 | NURSING ---
2100; Surgical dressing to l lateral thigh removed. dressing saturated with drainage, cleansed around incision with ns, applied abd x3. No redness noted. Swelling to left leg noted.
[2025-05-16 05:06] LABS: Hematocrit 26.2 % (37-47); Hemoglobin 8.5 g/dL (12.0-15.0)
[2025-05-16 08:38] VITALS: BP 132/47; PULSE 78; RESP 18; TEMP 36.1; O2SAT 98
[2025-05-16] MEDS: Senna/Docusate Sodium 1 Tablet 2 TABLET PO ×2 (08:42→21:33)
[2025-05-16] MEDS: BRIMONIDINE 0.2% 5ML BOTTLE 2 DRP LEFT EYE ×2 (08:42→21:33)
[2025-05-16] MEDS: APIXABAN 5 MG TABLET PO ×2 (08:42→21:33)
[2025-05-16] MEDS: Dorzolamide HCL/Timolol 10 ml Bottle 1 DRP LEFT EYE ×2 (08:42→21:34)
[2025-05-16] MEDS: 0.9% Saline Lock 10 ML Syringe IV ×2 (13:18→21:37)
[2025-05-16 16:26] VITALS: BP 127/55; PULSE 67
[2025-05-16] MEDS: Latanoprost 0.005% 1 Bottle 1 DRP OPHTHALMIC (21:34)
[2025-05-16 21:46] VITALS: PULSE 75; RESP 18; O2SAT 99
[2025-05-17] MEDS: Senna/Docusate Sodium 1 Tablet 2 TABLET PO ×2 (09:03→21:03)
[2025-05-17] MEDS: Dorzolamide HCL/Timolol 10 ml Bottle 1 DRP LEFT EYE ×2 (09:04→21:01)
[2025-05-17] MEDS: BRIMONIDINE 0.2% 5ML BOTTLE 2 DRP LEFT EYE ×2 (09:04→20:57)
[2025-05-17] MEDS: APIXABAN 5 MG TABLET PO ×2 (09:04→21:02)
[2025-05-17 09:12] VITALS: BP 116/46; PULSE 73; RESP 17; TEMP 36.3; O2SAT 98
--- NOTE | 2025-05-17 10:36 | NURSING ---
Automotive Parts Counterperson Note; Activity Asset: Lesly Herron is independent in her choice of daily activities, prefers in room only at this time. She stated she has no memory after the fall and not sure why she is here. She has her smartphone she uses for games only and cell to call people with. She will read, watch tv and welcomes visits from the sales clerk supervisor and friends. Germaine was born in [place] and came to the [place] in 1960 and enjoys talking about her life there. Staff will remind her of weekly activities, encourage social activities when she is ready and respect her right to say no.
[2025-05-17 16:41] VITALS: BP 122/48; PULSE 72
[2025-05-17] MEDS: 0.9% Saline Lock 10 ML Syringe IV ×2 (16:43→20:55)
[2025-05-17 20:00] VITALS: PULSE 76; O2SAT 98
[2025-05-17] MEDS: Latanoprost 0.005% 1 Bottle 1 DRP OPHTHALMIC (20:59)
[2025-05-18 05:59] LABS: Hematocrit 26.3 % (37-47); Hemoglobin 8.4 g/dL (12.0-15.0)
--- NOTE | 2025-05-18 06:09 | NURSING ---
Covarrubias cath D/C'd per order, patient tolerated well,
[2025-05-18 06:21] VITALS: PULSE 70; O2SAT 98
[2025-05-18 09:27] VITALS: BP 125/50; PULSE 78; RESP 17; TEMP 36.7; O2SAT 97
[2025-05-18] MEDS: BRIMONIDINE 0.2% 5ML BOTTLE 2 DRP LEFT EYE ×2 (09:31→21:06)
[2025-05-18] MEDS: Dorzolamide HCL/Timolol 10 ml Bottle 1 DRP LEFT EYE ×2 (09:32→21:08)
[2025-05-18] MEDS: APIXABAN 5 MG TABLET PO ×2 (09:32→21:10)
[2025-05-18] MEDS: Senna/Docusate Sodium 1 Tablet 2 TABLET PO (09:33)
[2025-05-18 14:14] VITALS: BMI 30.3
--- NOTE | 2025-05-18 16:01 | CASEMGMT ---
Social Work SW met with patient to complete initial assessment. Introduced self and role. Verified contacts and code status as full code. Educated to [facility] insurance with NRD 05/21 and continued stay is not guaranteed with each review; required to provide a 3-day notice for DC. SW broached DC plan as pt is NWB for 6 weeks, will need ongoing therapy, and does not have assistance to return home safely at this time. Discussed AL as an option for DC, but at an OOP cost. Pt continued repeating I thought I had good insurance. SW explained that all managed Medicare insurance plans do not cover LTC or AL, only skilled services. Pt's cognition is impaired and was having difficulty comprehending the information. SW explained this worker will provide explanation to friend tomorrow at the POC meeting. Pt agreed. SW will continue to follow for DC planning. Julia Mandel MANGA ARTIST BOAT CLEANER
[2025-05-18 17:55] VITALS: BP 159/58; PULSE 75
[2025-05-18] MEDS: 0.9% Saline Lock 10 ML Syringe IV (21:05)
[2025-05-18] MEDS: Latanoprost 0.005% 1 Bottle 1 DRP OPHTHALMIC (21:06)
--- NOTE | 2025-05-18 22:00 | NURSING ---
Patient bladder scanned for 546cc, patient states unable to void at time, straight cathed for 550cc, patient tolerated well, this is straight cath #2 for voiding trial,
[2025-05-19 05:38] LABS: Hematocrit 25.4 % (37-47); Hemoglobin 8.1 g/dL (12.0-15.0)
[2025-05-19 08:40] VITALS: BP 121/47; PULSE 74; RESP 18; TEMP 36.3; O2SAT 98
[2025-05-19] MEDS: BRIMONIDINE 0.2% 5ML BOTTLE 2 DRP LEFT EYE ×2 (08:43→21:02)
[2025-05-19] MEDS: Dorzolamide HCL/Timolol 10 ml Bottle 1 DRP LEFT EYE ×2 (08:44→21:03)
[2025-05-19] MEDS: APIXABAN 5 MG TABLET PO ×2 (08:45→21:07)
[2025-05-19] MEDS: Senna/Docusate Sodium 1 Tablet 2 TABLET PO ×2 (08:46→21:07)
--- NOTE | 2025-05-19 10:49 | CASEMGMT ---
Social Work IDT met with patient and friend, , for care plan meeting. Discussed patient's progress in PT/OT/ST/SN/RDN. Educated to [facility] insurance with NRD 05/21 and continued stay is not guaranteed with each review. Provided pt/family with written communication of insurance process and copay coverage during stay. IDT discussed recommendations for 20/05 care for physical assistance and pt does not have cognitive impairment. Pt is NWB for 6 weeks and lives alone. Friend cannot provide recommended assistance. SW discussed AL or SNF stay and OOP cost. Clarified insurance coverage as friend and pt were not aware of the SNF vs LTC coverage. Friend stated she will call [employer] to clarify. SW reiterated to ask about copays as well, per written communication given to friend. SW offered ongoing assistance with DC planning. Friend provided this worker with email address for communications. SW will continue to follow. Julia Mandel MASTER CERTIFIED RV TECHNICIAN CREDIT REVIEW OFFICER
[2025-05-19 16:00] VITALS: BP 126/47; PULSE 73; RESP 18; TEMP 36.6; O2SAT 97
--- NOTE | 2025-05-19 16:34 | NURSING ---
rdz cath not charted 05/18 removal. new cath insertion 05/19 d/t failed void trial
--- NOTE | 2025-05-19 16:37 | NURSING ---
rdz placed 05/19/25 d/t failed voiding trial, 16 thai, 10 ml balloon, pt tolerated well, yellow clear urine output.
[2025-05-19] MEDS: 0.9% Saline Lock 10 ML Syringe IV (17:01)
[2025-05-19 20:45] VITALS: PULSE 84; O2SAT 98
[2025-05-19] MEDS: Latanoprost 0.005% 1 Bottle 1 DRP OPHTHALMIC (21:06)
[2025-05-20 05:51] VITALS: PULSE 82; O2SAT 98
[2025-05-20 09:08] VITALS: BP 123/44; PULSE 74; RESP 17; TEMP 37; O2SAT 97
[2025-05-20] MEDS: BRIMONIDINE 0.2% 5ML BOTTLE 2 DRP LEFT EYE ×2 (09:12→20:55)
[2025-05-20] MEDS: Dorzolamide HCL/Timolol 10 ml Bottle 1 DRP LEFT EYE ×2 (09:13→20:56)
[2025-05-20] MEDS: APIXABAN 5 MG TABLET PO ×2 (09:13→20:57)
[2025-05-20] MEDS: Senna/Docusate Sodium 1 Tablet 2 TABLET PO ×2 (09:15→20:57)
--- NOTE | 2025-05-20 10:30 | CASEMGMT ---
Social Work SW completed BIMS () and PHQ-2 () for MDS assessment. Julia Mandel BOOM BOSS MUTUEL CASHIER
[2025-05-20] MEDS: Latanoprost 0.005% 1 Bottle 1 DRP OPHTHALMIC (20:57)
--- NOTE | 2025-05-20 21:08 | NURSING ---
pt refused atorvastain, states when she seen Dr. Huddleston in February, was advised to stop atorvastin due to leg pain
[2025-05-21 05:34] LABS: Hematocrit 25.0 % (37-47); Hemoglobin 8.2 g/dL (12.0-15.0); Immature Granulocytes Count 0.050 X10^3/uL (0.0-0.0); Mean Corp Hgb Conc 32.8 g/dL (32-36); Mean Corpuscular Volume 94.7 fL (81-99); Mean Platelet Vol. 9.4 fl (6.2-12.0); NRBC Flagged by Analyzer 0 % (0-5); Platelet Count 290 K/mm3 (150-450); RBC Distribution Width CV 15.2 % (11.6-14.6); RBC Distribution Width SD 52.7 fl (35.1-43.9); Red Blood Count 2.64 M/mm3 (4.2-5.4); White Blood Count 7.9 K/mm3 (4.4-11.0)
--- NOTE | 2025-05-21 06:17 | NURSING ---
removed old dressing, surgical site and lakeisha intact, scant purulent drainage on dressing. Cleansed surgical site with sterile water and guaze, dryed with guaze, abd/ tape applied. pt tolerated well
[2025-05-21 06:51] LABS: Anion Gap 8 (5-15); BUN 24 mg/dL (4-19); BUN/Creat Ratio 37.6 RATIO (10-20); Calcium,Total 8.4 mg/dL (7.6-11.0); Carbon Dioxide 25.4 mmol/L (21.0-32.0); Chloride 105 mmol/L (98-108); Estimated Creatinine Clearance 53.64 ml/min (50-250); Glucose 108 mg/dL (70-99); Potassium 4.0 mmol/L (3.3-5.1)
--- NOTE | 2025-05-21 08:23 | NURSING ---
Chemist Assistant Note; MDS for 05/21/2025 Complete
[2025-05-21 09:34] VITALS: BP 128/53; PULSE 75; RESP 17; TEMP 36.2; O2SAT 99
[2025-05-21] MEDS: APIXABAN 5 MG TABLET PO ×2 (09:40→21:49)
[2025-05-21] MEDS: Senna/Docusate Sodium 1 Tablet 2 TABLET PO ×2 (09:40→21:50)
[2025-05-21] MEDS: BRIMONIDINE 0.2% 5ML BOTTLE 2 DRP LEFT EYE (21:48)
[2025-05-21] MEDS: Latanoprost 0.005% 1 Bottle 1 DRP OPHTHALMIC (21:51)
[2025-05-21] MEDS: Dorzolamide HCL/Timolol 10 ml Bottle 1 DRP LEFT EYE (21:52)
[2025-05-22] MEDS: Senna/Docusate Sodium 1 Tablet 2 TABLET PO ×2 (11:20→22:25)
[2025-05-22] MEDS: APIXABAN 5 MG TABLET PO ×2 (11:21→22:25)
[2025-05-22] MEDS: Tuberculin,Purif.prot.deriv. 50 TU/ML Vial 0.1 ML ID (11:30)
[2025-05-22 12:44] VITALS: BP 129/51; PULSE 79; RESP 15; TEMP 36.5; O2SAT 97
[2025-05-22] MEDS: BRIMONIDINE 0.2% 5ML BOTTLE 2 DRP LEFT EYE (22:20)
[2025-05-22] MEDS: Latanoprost 0.005% 1 Bottle 1 DRP OPHTHALMIC (22:21)
[2025-05-22] MEDS: Dorzolamide HCL/Timolol 10 ml Bottle 1 DRP LEFT EYE (22:23)
[2025-05-23 06:40] LABS: Hematocrit 26.1 % (37-47); Hemoglobin 8.3 g/dL (12.0-15.0)
[2025-05-23] MEDS: Dorzolamide HCL/Timolol 10 ml Bottle 1 DRP LEFT EYE ×2 (09:10→20:01)
[2025-05-23] MEDS: Senna/Docusate Sodium 1 Tablet 2 TABLET PO ×2 (09:11→20:03)
[2025-05-23] MEDS: BRIMONIDINE 0.2% 5ML BOTTLE 2 DRP LEFT EYE ×2 (09:11→19:58)
[2025-05-23] MEDS: APIXABAN 5 MG TABLET PO ×2 (09:11→20:03)
[2025-05-23 09:14] VITALS: BP 127/52; PULSE 79; RESP 17; TEMP 36.3; O2SAT 98
[2025-05-23 16:47] VITALS: BP 143/59; PULSE 71
--- NOTE | 2025-05-23 19:38 | NURSING ---
[place] removed to left hip. Removed 62 lakeisha incision intact small amount of drainage noted around staple sites.
[2025-05-23] MEDS: Latanoprost 0.005% 1 Bottle 1 DRP OPHTHALMIC (19:59)
[2025-05-23 20:00] VITALS: PULSE 70; O2SAT 97
[2025-05-24 06:01] VITALS: PULSE 78; O2SAT 96
[2025-05-24] MEDS: APIXABAN 5 MG TABLET PO ×2 (08:25→20:56)
[2025-05-24] MEDS: Senna/Docusate Sodium 1 Tablet 2 TABLET PO ×2 (08:26→20:56)
[2025-05-24] MEDS: Dorzolamide HCL/Timolol 10 ml Bottle 1 DRP LEFT EYE ×2 (08:28→20:54)
[2025-05-24] MEDS: BRIMONIDINE 0.2% 5ML BOTTLE 2 DRP LEFT EYE ×2 (08:29→20:54)
--- NOTE | 2025-05-24 09:11 | NURSING ---
Offered covid vaccine, VIS provided. Resident declines.
[2025-05-24 11:24] VITALS: BP 142/55; PULSE 77; RESP 18; TEMP 36.6; O2SAT 97
--- NOTE | 2025-05-24 14:36 | WOUNDNOTE ---
wound photo: bilateral buttocks
[2025-05-24] MEDS: Latanoprost 0.005% 1 Bottle 1 DRP OPHTHALMIC (20:53)
[2025-05-25 09:32] VITALS: BP 139/58; PULSE 78; RESP 18; TEMP 36.3; O2SAT 98
[2025-05-25] MEDS: APIXABAN 5 MG TABLET PO ×2 (09:36→22:46)
[2025-05-25] MEDS: BRIMONIDINE 0.2% 5ML BOTTLE 2 DRP LEFT EYE ×2 (09:36→22:44)
[2025-05-25] MEDS: Dorzolamide HCL/Timolol 10 ml Bottle 1 DRP LEFT EYE ×2 (09:37→22:45)
[2025-05-25 10:00] VITALS: PULSE 75; RESP 16; O2SAT 97
[2025-05-25 12:33] VITALS: BMI 29.3
[2025-05-25 17:10] VITALS: BP 141/59; PULSE 77
--- NOTE | 2025-05-25 17:58 | NURSING ---
pt refusing to get OOB, offered and explained that she needs to increase her mobility to prevent pneumonia, blood clots, constipation & bed sores. pt agreed to sit up in chair but at intervals during day.
--- NOTE | 2025-05-25 18:14 | NURSING ---
Addendum entered by Aparna Menezes 05/25/25 18:40: new order for UA C&S Original Note: urine w/strong odor, dark in color, pt also c/o being more tired than usual. dr ko notified.
--- NOTE | 2025-05-25 18:55 | NURSING ---
clamped rdz cath tubing at this time for Urine sample
[2025-05-25 19:42] LABS: Color, Urine Straw (Yellow); Glucose, Dipstick Normal (Normal); Ketone-Dipstick Negative (Negative); Leukocyte Esterase-Dipstick 500 /ul (Negative); Mucous, Urine 0 SEEN /hpf (<or=2+); Nitrite-Dipstick Positive (Negative); Occult Blood-Urine 150 /ul (Negative); Protein-Dipstick 15 mg/dl (Negative); Specific Gravity, Urine 1.005 (1.002-1.030); Urine Bilirubin Dipstick Negative (Negative)
[2025-05-25 20:29] LABS: Squamous Epithelial Cells - UA 0-5 SEEN /hpf (5-10)
[2025-05-25 20:30] LABS: Red Blood Cells-Urine 0-5 SEEN /hpf (0-5)
[2025-05-25] MEDS: Latanoprost 0.005% 1 Bottle 1 DRP OPHTHALMIC (22:47)
[2025-05-25] MEDS: Senna/Docusate Sodium 1 Tablet 2 TABLET PO (22:47)
[2025-05-26 07:47] VITALS: PULSE 75; RESP 16
--- NOTE | 2025-05-26 08:00 | MDS.RN ---
Information for the MDS was obtained from review of the clinical record, interview of resident, staff, and direct observation of resident?s care.
[2025-05-26 08:15] VITALS: BP 154/57; PULSE 75; RESP 18; TEMP 36.3; O2SAT 97
[2025-05-26] MEDS: APIXABAN 5 MG TABLET PO ×2 (08:18→21:17)
[2025-05-26] MEDS: Senna/Docusate Sodium 1 Tablet 2 TABLET PO ×2 (08:18→21:17)
[2025-05-26] MEDS: BRIMONIDINE 0.2% 5ML BOTTLE 2 DRP LEFT EYE ×2 (08:19→21:15)
[2025-05-26] MEDS: Dorzolamide HCL/Timolol 10 ml Bottle 1 DRP LEFT EYE ×2 (08:19→21:19)
--- NOTE | 2025-05-26 08:22 | NURSING ---
dr ko notified of Urine results, new order for cipro, pt updated.
--- NOTE | 2025-05-26 11:12 | NURSING ---
Addendum entered by Jia Carty 05/27/25 12:10: Called back from office, they have no pneumonia vaccines on file, says that she refused all vaccines when last in the office. Original Note: message left with dr zuniga office for pneumonia vaccine dates, awaiting return time
[2025-05-26 16:49] VITALS: BP 128/50; PULSE 76; TEMP 36.3
[2025-05-26] MEDS: Latanoprost 0.005% 1 Bottle 1 DRP OPHTHALMIC (21:22)
[2025-05-27] MEDS: Senna/Docusate Sodium 1 Tablet 2 TABLET PO ×2 (08:40→20:51)
[2025-05-27 08:41] VITALS: BP 111/52; PULSE 82; RESP 16; TEMP 36.4; O2SAT 97
[2025-05-27] MEDS: Dorzolamide HCL/Timolol 10 ml Bottle 1 DRP LEFT EYE ×2 (08:42→20:48)
[2025-05-27] MEDS: APIXABAN 5 MG TABLET PO ×2 (08:42→20:51)
[2025-05-27] MEDS: BRIMONIDINE 0.2% 5ML BOTTLE 2 DRP LEFT EYE ×2 (08:42→20:45)
--- NOTE | 2025-05-27 11:58 | CASEMGMT ---
Social Work SW attempted to phone pt's friend, , but phone call would not go through. SW sent secure email to confirm phone number and request a call or email to discuss DC plans, offered friend to attend a therapy session, and inform her that insurance approved with [employer]D 05/31. JOSEF will continue to follow. Julia Mandel MSW ENVELOPE PATTERNMAKER
[2025-05-27 17:21] VITALS: BP 156/57; PULSE 77
[2025-05-27] MEDS: Latanoprost 0.005% 1 Bottle 1 DRP OPHTHALMIC (20:46)
[2025-05-28 05:48] LABS: Hematocrit 26.8 % (37-47); Hemoglobin 8.4 g/dL (12.0-15.0); Immature Granulocytes Count 0.040 X10^3/uL (0.0-0.0); Mean Corp Hgb Conc 31.3 g/dL (32-36); Mean Corpuscular Volume 96.1 fL (81-99); Mean Platelet Vol. 9.4 fl (6.2-12.0); NRBC Flagged by Analyzer 0 % (0-5); Platelet Count 264 K/mm3 (150-450); RBC Distribution Width CV 15.5 % (11.6-14.6); RBC Distribution Width SD 53.9 fl (35.1-43.9); Red Blood Count 2.79 M/mm3 (4.2-5.4); White Blood Count 6.0 K/mm3 (4.4-11.0)
[2025-05-28 06:39] LABS: Anion Gap 10 (5-15); BUN 22 mg/dL (4-19); BUN/Creat Ratio 30.6 RATIO (10-20); Calcium,Total 8.6 mg/dL (7.6-11.0); Carbon Dioxide 25.9 mmol/L (21.0-32.0); Chloride 102 mmol/L (98-108); Estimated Creatinine Clearance 52.76 ml/min (50-250); Glucose 108 mg/dL (70-99); Potassium 3.9 mmol/L (3.3-5.1)
[2025-05-28 07:36] VITALS: BP 154/60; PULSE 78; RESP 18; TEMP 36.4; O2SAT 98
[2025-05-28] MEDS: Senna/Docusate Sodium 1 Tablet 2 TABLET PO ×2 (07:40→21:12)
[2025-05-28] MEDS: APIXABAN 5 MG TABLET PO ×2 (07:40→21:12)
[2025-05-28] MEDS: Dorzolamide HCL/Timolol 10 ml Bottle 1 DRP LEFT EYE ×2 (07:40→21:10)
[2025-05-28] MEDS: BRIMONIDINE 0.2% 5ML BOTTLE 2 DRP LEFT EYE ×2 (07:41→21:08)
--- NOTE | 2025-05-28 11:20 | NURSING ---
rdz catheter removed at 1115 today to attempt another round of voiding trials. pt educated to call for need to use BSC. pt verbalized understanding.
--- NOTE | 2025-05-28 13:41 | NURSING ---
new mepilex applied to bilat buttocks d/t old one came off for TIMBER TREATMENT PLANT OPERATOR staff during ADL's/toileting.
[2025-05-28 17:10] VITALS: BP 137/47; PULSE 77
--- NOTE | 2025-05-28 18:42 | NURSING ---
pt attempted x2 to void w/out intervention. unable. pt st cathed for 550cc. clear yellow urine.
[2025-05-28 20:00] VITALS: PULSE 90; O2SAT 97
[2025-05-28] MEDS: Latanoprost 0.005% 1 Bottle 1 DRP OPHTHALMIC (21:09)
--- NOTE | 2025-05-29 02:39 | NURSING ---
Patient bladder scanned for 883ml, unable to void, denies any pressure or discomfort, straight cathed for 900ml, patient tolerated well, this was straight cath #2 on voiding trial.
[2025-05-29 02:47] VITALS: PULSE 82; O2SAT 97
[2025-05-29 10:17] VITALS: BP 132/51; PULSE 76; RESP 16; TEMP 36.1; O2SAT 99
[2025-05-29] MEDS: APIXABAN 5 MG TABLET PO ×2 (10:27→22:39)
[2025-05-29] MEDS: Dorzolamide HCL/Timolol 10 ml Bottle 1 DRP LEFT EYE ×2 (10:28→22:40)
[2025-05-29] MEDS: BRIMONIDINE 0.2% 5ML BOTTLE 2 DRP LEFT EYE ×2 (10:29→22:37)
[2025-05-29] MEDS: Senna/Docusate Sodium 1 Tablet 2 TABLET PO (22:40)
[2025-05-29] MEDS: Latanoprost 0.005% 1 Bottle 1 DRP OPHTHALMIC (22:46)
[2025-05-30 08:17] VITALS: BP 133/51; PULSE 80; RESP 16; TEMP 36.6; O2SAT 97
[2025-05-30] MEDS: BRIMONIDINE 0.2% 5ML BOTTLE 2 DRP LEFT EYE ×2 (08:25→21:13)
[2025-05-30] MEDS: Dorzolamide HCL/Timolol 10 ml Bottle 1 DRP LEFT EYE ×2 (08:26→21:16)
[2025-05-30] MEDS: Senna/Docusate Sodium 1 Tablet 2 TABLET PO ×2 (08:27→21:17)
[2025-05-30] MEDS: APIXABAN 5 MG TABLET PO ×2 (08:27→21:16)
[2025-05-30] MEDS: Latanoprost 0.005% 1 Bottle 1 DRP OPHTHALMIC (21:19)
[2025-05-30 22:00] VITALS: PULSE 73; RESP 16; O2SAT 98
[2025-05-31 09:09] VITALS: BP 135/50; PULSE 72; RESP 16; TEMP 36.2; O2SAT 97
[2025-05-31] MEDS: Senna/Docusate Sodium 1 Tablet 2 TABLET PO ×2 (09:12→21:03)
[2025-05-31] MEDS: BRIMONIDINE 0.2% 5ML BOTTLE 2 DRP LEFT EYE ×2 (09:13→21:05)
[2025-05-31] MEDS: Dorzolamide HCL/Timolol 10 ml Bottle 1 DRP LEFT EYE ×2 (09:13→21:05)
[2025-05-31] MEDS: APIXABAN 5 MG TABLET PO ×2 (10:52→21:03)
--- NOTE | 2025-05-31 13:17 | NURSING ---
pt off unit to ortho appt via WC with [facility]
--- NOTE | 2025-05-31 15:39 | NURSING ---
pt returned from dr serna appt with order for xray of LT femur 06/21 and f/u in 4 wks
[2025-05-31 15:43] VITALS: PULSE 73; RESP 16; O2SAT 96
[2025-05-31 16:00] VITALS: BP 135/52; PULSE 72
[2025-05-31] MEDS: Latanoprost 0.005% 1 Bottle 1 DRP OPHTHALMIC (21:06)
[2025-06-01 09:13] VITALS: BP 125/54; PULSE 77; RESP 16; TEMP 36.4; O2SAT 99
[2025-06-01] MEDS: APIXABAN 5 MG TABLET PO ×2 (09:13→22:09)
[2025-06-01] MEDS: Senna/Docusate Sodium 1 Tablet 2 TABLET PO ×2 (09:13→22:09)
[2025-06-01] MEDS: BRIMONIDINE 0.2% 5ML BOTTLE 2 DRP LEFT EYE ×2 (09:14→22:09)
[2025-06-01] MEDS: Dorzolamide HCL/Timolol 10 ml Bottle 1 DRP LEFT EYE ×2 (09:15→22:10)
[2025-06-01 12:00] VITALS: BMI 29.9
--- NOTE | 2025-06-01 15:21 | NURSING ---
Spoke with Dr Livingston's office, pt is now TTWB to LLE. Repeat xrays in 6 weeks.
[2025-06-01 22:00] VITALS: RESP 18
[2025-06-01] MEDS: Latanoprost 0.005% 1 Bottle 1 DRP OPHTHALMIC (22:10)
[2025-06-02 08:40] VITALS: BP 124/47; PULSE 83; RESP 16; TEMP 36.2; O2SAT 97
[2025-06-02] MEDS: APIXABAN 5 MG TABLET PO ×2 (08:45→21:29)
[2025-06-02] MEDS: BRIMONIDINE 0.2% 5ML BOTTLE 2 DRP LEFT EYE ×2 (08:45→21:29)
[2025-06-02] MEDS: Senna/Docusate Sodium 1 Tablet 2 TABLET PO ×2 (08:45→21:30)
[2025-06-02] MEDS: Dorzolamide HCL/Timolol 10 ml Bottle 1 DRP LEFT EYE ×2 (08:46→21:29)
[2025-06-02 14:26] VITALS: PULSE 67; RESP 17; O2SAT 98
[2025-06-02 16:53] VITALS: BP 143/60; PULSE 68
--- NOTE | 2025-06-02 18:53 | NURSING ---
dr ko updated on pt asking about rdz removal, pt finished cipro for UTI. new order consult dr jasso urinary retention/failed voiding trials
[2025-06-02] MEDS: Latanoprost 0.005% 1 Bottle 1 DRP OPHTHALMIC (21:29)
--- NOTE | 2025-06-03 07:54 | CON.PCM_ITS ---
Assessment & Plan Assessment/Plan (1) Urinary retention: (2) Urinary tract infection: (3) Stroke: PLAN: Plan Aggressive management of any constipation Continue working with mobility Okay to continue with Covarrubias catheter in the acute situation or begin intermittent straight cath She will need further management and evaluation in the office as she progresses with possible urodynamics and cystoscopy From my standpoint, she can be discharged with Covarrubias catheter in place or she can be given another trial of void and started on intermittent cathing 4 times daily. Either way she can follow-up with me after discharge HPI Consult Data Date of Consult: 06/03/25 HPI Narrative Reason for Consultation: urinary retention HPI Narrative: GOGO WARE, is a 85 F who fell and broke her femur. She had surgical intervention and this was followed by several strokes. Since this time she has been unable to void despite a trial of Flomax and she has her Covarrubias catheter reinserted. She denies a history of urologic issues previously. She is never seen a urologist. She has not had issues with urinary tract infections, difficulty with voiding, pelvic organ prolapse, urinary tract infections, kidney stones, hematuria. She denies a history of constipation does feel like she has to void constantly with her catheter in place. [facility] Medical History Femoral distal fracture Laceration of leg Closed head injury Abrasions of multiple sites Laceration of lip Pure hypercholesterolemia Nonrheumatic aortic (valve) stenosis Non-ST elevation (NSTEMI) myocardial infarction Old myocardial infarction Atherosclerotic heart disease of [place] coronary artery without angina pectoris Essential hypertension Seborrheic keratosis Generalized weakness Fall Home Medications ?Medication ?Instructions ?Recorded ?Last Taken ?Type brimonidine 0.2 % eye drops 2 drp EACH EYE BID glaucom a 11/25/17 11/25/17 History dorzolamide 22.3 mg-timolol 6.8 1 drp EACH EYE BID gla ucoma 11/25/17 11/25/17 History mg/mL eye drops latanoprost 0.005 % eye drops 1 drp ophthalmic (eye) Q PM glaucoma 12/17/19 Unknown History carvedilol 12.5 mg tablet 12.5 mg PO BID BP/pulse #180 tabs 11/03/24 Unknown Rx apixaban 5 mg tablet (Eliquis) 5 mg PO BID blood thinn er 05/07/25 Unknown History clopidogrel 75 mg tablet 75 mg PO DAILY antiplatelet 05/07/25 Unknown History temazepam 30 mg capsule 30 mg PO DAILY sleep 5 Unknown History acetaminophen 500 mg tablet 1,000 mg (2 x 500 mg) PO Q 8H Pain 05/14/25 Unknown Rx (Acetaminophen Pain Relief) 1-10 Or Fever >100.7 30 da ys #180 tabs atorvastatin 40 mg tablet 40 mg PO QHS cholesterol #0 tabs 05/14/25 Unknown Rx losartan 25 mg tablet 25 mg PO DAILY BP #0 tabs Unknown Rx oxycodone 5 mg tablet 2.5 - 5 mg PO Q4H PRN PRN Pa in 05/14/25 Unknown History Score 4-10 pantoprazole 40 mg tablet,delayed 40 mg PO DAILY reflu x #0 tabs 05/14/25 Unknown Rx release sennosides 8.6 mg-docusate sodium 2 tab PO BID stool s oftener #0 tabs 05/14/25 Unknown Rx 50 mg tablet (Stimulant Laxative Plus) Allergy/AdvReac Type Severity Reaction Status Date / Time No Known Allergies Allergy Verified 03/16/24 14:09 Family History Father Diabetes Grandmother Colon cancer Surgical History History of left heart catheterization (LHC) (~12/27/17) History of bilateral hip replacements Social History household members: none Smoking Status: Smoker, status unknown alcohol intake: current alcohol intake frequency: holidays/special occasions only Alcohol type: wine substance use type: does not use caffeine: Yes Type: coffee what type of physical activity do you participate in: none seatbelt use: always do you feel safe at home: Yes ROS Constitutional Constitutional: Denies anorexia, chills or fever(s) Eyes Eyes: Reports systems reviewed and no addt'l complaints, except as documented ENT HEENT: Reports systems reviewed and no addt'l complaints, except as documented Cardiovascular Cardiovascular: Denies chest pain, nausea or vomiting Respiratory/Chest Respiratory/Chest: Reports systems reviewed and no addt'l complaints, except as documented; Denies chest tightness or dyspnea Gastrointestinal Gastrointestinal: Denies abdominal pain, constipation, fecal incontinence, nausea or vomiting Genitourinary Genitourinary: Reports nocturia; Denies burning urination, dysuria, flank pain, hematuria, urinary frequency or urinary incontinence Musculoskeletal Musculoskeletal: Reports as per HPI Integumentary Integumentary: Reports systems reviewed and no addt'l complaints, except as documented Neurologic Neurologic: Reports systems reviewed and no addt'l complaints, except as documented Psychiatric Psychiatric: Reports systems reviewed and no addt'l complaints, except as documented Endocrine Endocrinology: Reports systems reviewed and no addt'l complaints, except as documented Hematologic/Lymphatic Hematologic/Lymphatic: Reports systems reviewed and no addt'l complaints, except as documented Allergic/Immunologic Allergic/Immunologic: Reports systems reviewed and no addt'l complaints, except as documented Physical Exam Const alert, oriented x3, no apparent distress and average body habitus HEENT normocephalic, head/scalp atraumatic, hearing grossly normal bilaterally, external ears normal, external nose normal and nasal mucous membranes and turbinates normal Eyes General Eye: normal appearance of both eyes Neck supple General: normal visual inspection and trachea midline Chest inspection of chest normal Chest: symmetrical chest wall rise Resp normal respiratory effort, normal air movement, no retractions and no use of accessory muscles Effort and Inspection: able to speak in complete sentences and symmetric chest movement Cardio regular rate GI soft to palpation and non-tender Narrative: Urethral Covarrubias catheter draining Skin no jaundice, no petechiae and no mottling Neuro oriented x3 and CN's II-XII intact bilaterally Psych mental status grossly normal, thought process normal and cooperative Medical Records Data Attestation: I reviewed the patient's medical records Lab / Micro Data Attestation: I reviewed the patient's lab results. 05/28/25 05:25 05/28/25 05:25 Micro: positive multi-organism UTI
[2025-06-03] MEDS: Senna/Docusate Sodium 1 Tablet 2 TABLET PO (08:26)
[2025-06-03] MEDS: Dorzolamide HCL/Timolol 10 ml Bottle 1 DRP LEFT EYE ×2 (08:28→22:25)
[2025-06-03] MEDS: APIXABAN 5 MG TABLET PO ×2 (08:28→22:26)
[2025-06-03] MEDS: BRIMONIDINE 0.2% 5ML BOTTLE 2 DRP LEFT EYE ×2 (08:28→22:26)
[2025-06-03 10:40] VITALS: BP 157/58; PULSE 73; RESP 18; TEMP 36.8; O2SAT 95
--- NOTE | 2025-06-03 16:03 | CASEMGMT ---
Social Work SW spoke with pt at bedside. Explained this worker has made several attempts to contact but no response. Pt confirmed is on vacation and returning tomorrow. SW explained insurance update was sent this date and unsure how much longer pt will be approved. Therapy has spoken with pt about her needing physical assistance with all tasks and pt has some cognitive deficits. IDT is not recommending home alone. SW explained the options for SNF or AL. Pt stated her was at [facility] before and had a good experience and would be agreeable to [facility] at [place]. SW explained it would be private pay for room and board, then part B therapies. Pt expressed understanding. SW to place referral and update pt of outcome. - SW sent referral to [facility] via [facility]. Julia Mandel EMBOSSING CLERK COMPUTER SYSTEMS ANALYST
[2025-06-03 22:00] VITALS: PULSE 62; RESP 16; O2SAT 96
[2025-06-03] MEDS: Latanoprost 0.005% 1 Bottle 1 DRP OPHTHALMIC (22:23)
[2025-06-04 05:45] LABS: Hematocrit 29.4 % (37-47); Hemoglobin 9.3 g/dL (12.0-15.0); Immature Granulocytes Count 0.020 X10^3/uL (0.0-0.0); Mean Corp Hgb Conc 31.6 g/dL (32-36); Mean Corpuscular Volume 96.1 fL (81-99); Mean Platelet Vol. 9.9 fl (6.2-12.0); NRBC Flagged by Analyzer 0 % (0-5); Platelet Count 214 K/mm3 (150-450); RBC Distribution Width CV 15.4 % (11.6-14.6); RBC Distribution Width SD 54.1 fl (35.1-43.9); Red Blood Count 3.06 M/mm3 (4.2-5.4); White Blood Count 6.4 K/mm3 (4.4-11.0)
[2025-06-04 06:13] LABS: Anion Gap 11 (5-15); BUN 23 mg/dL (4-19); BUN/Creat Ratio 33.2 RATIO (10-20); Calcium,Total 9.1 mg/dL (7.6-11.0); Carbon Dioxide 24.6 mmol/L (21.0-32.0); Chloride 102 mmol/L (98-108); Estimated Creatinine Clearance 53.29 ml/min (50-250); Glucose 104 mg/dL (70-99); Potassium 3.5 mmol/L (3.3-5.1)
--- NOTE | 2025-06-04 07:21 | NURSING ---
New onset several bowel incontinence, no nausea or vomiting. Written communication left for Dr. Huddleston
[2025-06-04] MEDS: APIXABAN 5 MG TABLET PO ×2 (09:15→21:01)
[2025-06-04] MEDS: Dorzolamide HCL/Timolol 10 ml Bottle 1 DRP LEFT EYE ×2 (09:16→21:01)
[2025-06-04] MEDS: BRIMONIDINE 0.2% 5ML BOTTLE 2 DRP LEFT EYE ×2 (09:18→21:02)
[2025-06-04 10:00] VITALS: RESP 18
--- NOTE | 2025-06-04 11:10 | RAD_ITS ---
PROCEDURE: ABD INC DECUB AND/OR ERECT 06/04/2025 REASON FOR EXAM: STOOL INCONTINENCE. TECHNIQUE: ABD INC DECUB AND/OR ERECT COMPARISON: None FINDINGS: Bowel gas: Bowel gas pattern is normal. No evidence of bowel obstruction. Calcifications: Pelvic phleboliths. There are 2 calcifications overlying the right mid abdomen that are possibly within the bowel. Bones: There are degenerative changes of the spine. Bilateral hip replacements. Buttress plate and screws left laterally on the left partially imaged. Other: Atherosclerosis RAD/Abd Inc Decub and/or Erect IMPRESSION: No acute abnormality Reading Location: [id number]
--- NOTE | 2025-06-04 14:48 | DS.PCM_ITS ---
Providers Date of Admission: 05/14/25 Primary Care Physician: Dr. Eh Huddleston MD Consultations 06/02/25 17:19 Consult: Urology Routine Consulting Provider: Katelyn Kuhn Reason for Consult: Retention, Flomax 0.4mg bid, failed voiding trials x 3. EMERGENT Consult: No MD Notified: Yes Date Notified: 06/03/25 Time Notified: 08:00 Method of Notification: Text Comments:: already completed Reason For Visit: SISTAL L FEMER Diagnosis Discharge Diagnosis (1) Urinary retention: Status: Acute Code(s): R33.9 - Retention of urine, unspecified (2) Urinary tract infection: Status: Acute Code(s): N39.0 - Urinary tract infection, site not specified (3) Stroke: Status: Acute Code(s): I63.9 - Cerebral infarction, unspecified Plan 85 year old female with below past medical history hospitalized left distal femur fracture, underwent orif 05/09/[address] Livingston, postoperative course complicated by acute blood loss anemia requiring transfusion, stroke, urinary retention, admitted to TCU with debility, here for rehabilitation, strengthening, prior to discharge home alone. * Debility - PT/OT. * Pain - Tylenol 1000mg q8, Oxycodone 2.5mg - 5mg q4 prn pain. * Bowel - senna/colace 2 tablets bid, Magnesium citrate 300mL daily prn. * Adult immunization - Administer pneumonia vaccine, covid vaccine, flu vaccine as appropriate. * DVT prophylaxis - Eliquis. * Recurrent DVT - Eliquis 5mg bid. * Hyperlipidemia - Atorvastatin 40mg qhs. * Glaucoma - Brimonidine 2gtt ou bid, Dorzolamide/Timolol 1gtt ou bid, Latanoprost 1gtt ou qpm. * Coronary artery disease - Coreg 12.5mg bid, Losartan 25mg daily, Plavix 75mg daily, Eliquis 5mg bid. * Stroke - Plavix 75mg daily, Eliquis 5mg bid, 30 day event monitor. * GERD - Pantoprazole 40mg daily. * Urinary retention - Tamsulosin 0.4mg daily, indwelling rdz catheter, voiding trials. The following psychotropic medication was present on admission: Temazepam 30mg qhs. Psychotropic medication therapy is indicated for a diagnosis of: Insomnia. Based on my clinical evaluation, continuation of the medication is necessary at this time. Gradual dose reduction plan (select one): ____ GDR will be attempted. Will monitor patient symptoms and behaviors in response to GDR. __x__ GRD contraindicated. Reason contraindicated: Medications at Discharge Home Medications brimonidine 0.2 % eye drops 2 drp EACH EYE BID glaucoma 11/25/17 dorzolamide 22.3 mg-timolol 6.8 mg/mL eye drops 1 drp EACH EYE BID glaucoma 11/25/17 latanoprost 0.005 % eye drops 1 drp ophthalmic (eye) QPM glaucoma 12/17/19 carvedilol 12.5 mg tablet 12.5 mg PO BID BP/pulse #180 tabs 11/03/24 apixaban 5 mg tablet (Eliquis) 5 mg PO BID blood thinner 05/07/25 clopidogrel 75 mg tablet 75 mg PO DAILY antiplatelet 05/07/25 temazepam 30 mg capsule 30 mg PO DAILY sleep 05/07/25 atorvastatin 40 mg tablet 40 mg PO QHS cholesterol #0 tabs 05/14/25 losartan 25 mg tablet 25 mg PO DAILY BP #0 tabs 05/14/25 pantoprazole 40 mg tablet,delayed release 40 mg PO DAILY reflux #0 tabs 05/14/25 acetaminophen 500 mg tablet 1,000 mg (2 x 500 mg) PO Q6H PRN PRN Pain Score 1-10 #0 tabs 06/04/25 ascorbic acid (vitamin C) 500 mg tablet 500 mg PO 1000 #0 tabs 06/04/25 menthol 0.44 %-zinc oxide 20.6 % topical ointment (Calmoseptine) 1 applic topical BID #0 grams 06/04/25 polysaccharide iron complex 150 mg iron capsule (Ferrex) 150 mg PO DAILY #0 caps 06/04/25 sennosides 8.6 mg-docusate sodium 50 mg tablet (Stimulant Laxative Plus) 1 tab PO BID #0 tabs 06/04/25 tamsulosin 0.4 mg capsule 0.4 mg PO BID@0830,1730 #0 caps 06/04/25 vancomycin 25 mg/mL oral solution (Firvanq) 125 mg (5 mL) PO Q6 7 days #0 mL 06/04/25 Hospital Course Operations - (See below.) Procedures None Summary of Care Provided Minutes Spent on Discharge: 35 Hospital Course: 85 year old female with below past medical history hospitalized left distal femur fracture, underwent orif 05/09/[address] Livingston, postoperative course complicated by acute blood loss anemia requiring transfusion, stroke, urinary retention, admitted to TCU with debility, here for rehabilitation, strengthening, prior to discharge home alone. 05/25/2025 UTI (E. Coli/Klebsiella Pneumoniae/P. Aeruginosa), treated with Cipro 250mg po bid x 7 days. 06/04/2025 C. Diff diarrhea - Vancomycin 125mg po q6 x 10 days. Discharge 06/07/2025 to [facility], intermediate, part B therapies. Physical Exam Const alert General Appearance: cooperative HEENT normocephalic Eyes PERRL and EOMs intact bilaterally Neck supple, no JVD and no carotid bruits Resp normal respiratory effort, normal air movement and clear to auscultation bilaterally Cardio regular rate and regular rhythm GI normal to inspection, nondistended, normoactive bowel sounds, non-tender and non-distended Bladder / Kidney Exam: catheter in place urethral Extremity normal capillary refill General Extremity: Negative for edema Skin no rashes or lesions noted General Skin Exam: no breakdown Psych affect normal Appearance: appropriate Weight / BMI Weight Weight: 81.692 kg Body Mass Index (BMI) 29.9 ABG / Lab / Microbiology Data 06/04/25 05:32 06/04/25 05:32 Laboratory: Laboratory Results - last 24 hr 06/04/25 05:32: WBC 6.4, RBC 3.06 L, Hgb 9.3 L, Hct 29.4 L, MCV 96.1, MCH 30.4, MCHC 31.6 L, RDW Std Deviation 54.1 H, RDW Coeff of Alex 15.4 H, Plt Count 214, MPV 9.9, Immature Gran % (Auto) 0.300, Neut % (Auto) 62.9, Lymph % (Auto) 19.7, [place] % (Auto) 11.2 H, Eos % (Auto) 5.1 H, Baso % (Auto) 0.8, Absolute Neuts (auto) 4.0, Absolute Lymphs (auto) 1.26, Nucleated RBC % 0, Sodium 137, Potassium 3.5, Chloride 102, Carbon Dioxide 24.6, Anion Gap 11, BUN 23 H, C reatinine 0.68 L, Estim Creat Clear Calc 53.29, Est GFR (MDRD) Non-Af 85, B UN/Creatinine Ratio 33.2 H, Glucose 104 H, Calcium 9.1 Microbiology: Microbiology 06/04/25 08:54 Stool Enteric Bacteriology - Final 06/04/25 08:54 Stool C. difficile GDH Antigen & Toxins - Final 06/04/25 08:54 Stool Clostridioides difficile (PCR) - Final 05/25/25 18:35 Urine Catheter - Rdz Urine Culture - Final Escherichia coli Klebsiella pneumoniae sp pneum Pseudomonas aeruginosa 05/18/25 09:25 Stool Stool Occult Blood (DESEAN) - Final 05/15/25 17:33 Stool Stool Occult Blood (DESEAN) - Final Radiography Diagnostic Testing: Radiology Impression Abdomen X-Ray 06/04/25 11:10 IMPRESSION: No acute abnormality Reading Location: [id number]/ Instructions Discharge Activity: Return to Normal Activity, May Shower and Use Walker Weight Bearing Status: Weight bearing as tolerated Call your doctor if you observe: Fever of 101 or Higher, Inability to urinate, Inability to have a bowel movement, Shortness of breath, Dizziness, Fainting spells, Swelling in the ankles, Chest pain and Uncontrolled pain DC O2, CPAP, BIPAP Needs Home O2 Discharge instructions: No Additional Instructions: Discharge 06/07/2025 to [facility], intermediate, part B therapies. Please Follow Up With: Dr. Livingston When: As scheduled. Meaningful Use Info Meaningful Use Meaningful Use Diagnoses (Choose all that apply): None applicable Discharge Plan Admission Admit Date/Time: 05/14/25 14:44 Primary Reason for Your Visit: Debility. Attending Provider: Eh Huddleston Chi Primary Care Provider: Eh Huddleston Chi Consulting Providers: Katelyn Kuhn Instructions Additional Instructions / Restrictions: Discharge 06/07/2025 to [facility], intermediate, part B therapies. Discharge Orders/Prescriptions Prescriptions: New polysaccharide iron complex [Ferrex 150] 150 mg iron Capsule 150 mg PO DAILY Qty: 0 0RF sennosides-docusate sodium [Stimulant Laxative Plus] 8.6-50 mg Tablet 1 tab PO BID Qty: 0 0RF acetaminophen 500 mg Tablet 1,000 mg PO Q6H PRN PRN (Reason: Pain Score 1-10) Qty: 0 0RF ascorbic acid (vitamin C) 500 mg Tablet 500 mg PO 1000 Qty: 0 0RF tamsulosin 0.4 mg Capsule 0.4 mg PO BID@0830,1730 Qty: 0 0RF menthol-zinc oxide [Calmoseptine] 0.44-20.6 % Ointment 1 applic topical BID Qty: 0 0RF Protocol: *Topical Application Instructions APPLICATION INSTRUCTIONS: bilat buttocks vancomycin [Firvanq] 25 mg/mL Recon Soln 125 mg PO Q6 7 Days Qty: 0 0RF Continued latanoprost 0.005 % drops 1 drp OPHTHALMIC QPM brimonidine 1 DROP bottle 2 drp EACH EYE BID dorzolamide-timolol 10 ML drops 1 drp EACH EYE BID Patient Comments: clopidogrel 75 mg tablet 75 mg PO DAILY Eliquis 5 mg tablet 5 mg PO BID temazepam 30 mg capsule 30 mg PO DAILY atorvastatin 40 mg Tablet 40 mg PO QHS Qty: 0 0RF pantoprazole 40 mg Tablet,Delayed Release (Dr/Ec) 40 mg PO DAILY Qty: 0 0RF losartan 25 mg Tablet 25 mg PO DAILY Qty: 0 0RF Rx Instructions: Hold for SBP less than 120 mmHg carvedilol 12.5 mg tablet 12.5 mg PO BID Qty: 180 4RF Discontinued sennosides-docusate sodium [Stimulant Laxative Plus] 8.6-50 mg Tablet 2 tab PO BID Qty: 0 0RF acetaminophen [Acetaminophen Pain Relief] 500 mg tablet 1,000 mg PO Q8H 30 Days Qty: 180 0RF Rx Instructions: 1 g, 3 times daily for 1 week and then 1 g Q8 hourly as needed for moderate to severe pain oxycodone 5 mg Tablet 2.5 - 5 mg PO Q4H PRN PRN (Reason: Pain Score 4-10) Rx Instructions: Oxycodone 2.5 mg for moderate pain (1-3) and 5 mg for severe pain respectively (4-10). Referrals / Follow Up: Eh Huddleston Chi, MD [Primary Care Provider] - Disposition Disposition (needs filled in before D/C Order can be placed): NonSkilled NH/Intermed Care
[2025-06-04 14:54] VITALS: BP 140/52; PULSE 81; RESP 18; TEMP 36.6; O2SAT 97
--- NOTE | 2025-06-04 14:57 | TREXTCAR_ITS ---
Diet Diet Order/Speech Therapy: INPATIENT Hospital Diet / Speech Therapy Order(s) 05/14/25 15:25 Diet: Cardiac - Heart Healthy Food consistency:: Regular Liquid Consistency:: Regular/Thin Type of Dietary Supplement:: Ensure Plus High Protein Diet Comments: 240ml EPHP tid; does not like white bread Routine Orders/Code Status Code Status: Full Code DC O2, CPAP, BIPAP needs Home O2 Discharge instructions: No Wound(s) right upper arm: Wound Type: Abrasion right outer knee: Wound Type: Abrasion hip: Wound Type: Surgical Incision Dressing Change: ABDs bilat buttocks: Wound Type: shear injury Dressing Change: mepilex- 06/01/25 maximiliano cleft: Wound Type: MASB Dressing Change: mepilex- 06/01/25 Therapies Weight Bearing: Weight bearing as tolerated Extremity Affected:: Bilateral Lower Physical Therapy: Eval and Treat Occupational Therapy: Eval and Treat Problem/Diagnosis (1) Urinary retention: Status: Acute Code(s): R33.9 - Retention of urine, unspecified (2) Urinary tract infection: Status: Acute Code(s): N39.0 - Urinary tract infection, site not specified (3) Stroke: Status: Acute Code(s): I63.9 - Cerebral infarction, unspecified Plan 85 year old female with below past medical history hospitalized left distal femur fracture, underwent orif 05/09/[address] Livingston, postoperative course complicated by acute blood loss anemia requiring transfusion, stroke, urinary retention, admitted to TCU with debility, here for rehabilitation, strengthening, prior to discharge home alone. * Debility - PT/OT. * Pain - Tylenol 1000mg q8, Oxycodone 2.5mg - 5mg q4 prn pain. * Bowel - senna/colace 2 tablets bid, Magnesium citrate 300mL daily prn. * Adult immunization - Administer pneumonia vaccine, covid vaccine, flu vaccine as appropriate. * DVT prophylaxis - Eliquis. * Recurrent DVT - Eliquis 5mg bid. * Hyperlipidemia - Atorvastatin 40mg qhs. * Glaucoma - Brimonidine 2gtt ou bid, Dorzolamide/Timolol 1gtt ou bid, Latanoprost 1gtt ou qpm. * Coronary artery disease - Coreg 12.5mg bid, Losartan 25mg daily, Plavix 75mg daily, Eliquis 5mg bid. * Stroke - Plavix 75mg daily, Eliquis 5mg bid, 30 day event monitor. * GERD - Pantoprazole 40mg daily. * Urinary retention - Tamsulosin 0.4mg daily, indwelling rdz catheter, voiding trials. The following psychotropic medication was present on admission: Temazepam 30mg qhs. Psychotropic medication therapy is indicated for a diagnosis of: Insomnia. Based on my clinical evaluation, continuation of the medication is necessary at this time. Gradual dose reduction plan (select one): ____ GDR will be attempted. Will monitor patient symptoms and behaviors in response to GDR. __x__ GRD contraindicated. Reason contraindicated: Allergies/Procedures Done in Hospital Allergies No Known Allergies Allergy (Verified 03/16/24 14:09) Procedures: None Type of Care/Length of Stay Estimated LOS: Convalescent Care Less Than 30 days Type of Care Needed: Intermediate Rehab Potential: Fair Prognosis: Fair Additional Orders/Day of Discharge Day of Discharge: 06/07/25 Dietary and Speech Recommendations Dietitian Recommendations/Changes: Continue cardiac diet. Continue EPHP 8 oz with meals per res request. Will monitor weight trends. Follow Up Care Please Follow Up With: Dr. Livingston When: 2 weeks Please Follow Up With: Dr. Melnedez When: 1 month Discharge Plan Admission Admit Date/Time: 05/14/25 14:44 Primary Reason for Your Visit: Debility. Attending Provider: Eh Huddleston Chi Primary Care Provider: Eh Huddleston Chi Consulting Providers: Katelyn Kuhn Instructions Additional Instructions / Restrictions: Discharge 06/07/2025 to [facility], intermediate, part B therapies. Discharge Orders/Prescriptions Prescriptions: New polysaccharide iron complex [Ferrex 150] 150 mg iron Capsule 150 mg PO DAILY Qty: 0 0RF sennosides-docusate sodium [Stimulant Laxative Plus] 8.6-50 mg Tablet 1 tab PO BID Qty: 0 0RF acetaminophen 500 mg Tablet 1,000 mg PO Q6H PRN PRN (Reason: Pain Score 1-10) Qty: 0 0RF ascorbic acid (vitamin C) 500 mg Tablet 500 mg PO 1000 Qty: 0 0RF tamsulosin 0.4 mg Capsule 0.4 mg PO BID@0830,1730 Qty: 0 0RF menthol-zinc oxide [Calmoseptine] 0.44-20.6 % Ointment 1 applic topical BID Qty: 0 0RF Protocol: *Topical Application Instructions APPLICATION INSTRUCTIONS: bilat buttocks vancomycin [Firvanq] 25 mg/mL Recon Soln 125 mg PO Q6 7 Days Qty: 0 0RF Continued latanoprost 0.005 % drops 1 drp OPHTHALMIC QPM brimonidine 1 DROP bottle 2 drp EACH EYE BID dorzolamide-timolol 10 ML drops 1 drp EACH EYE BID Patient Comments: clopidogrel 75 mg tablet 75 mg PO DAILY Eliquis 5 mg tablet 5 mg PO BID temazepam 30 mg capsule 30 mg PO DAILY atorvastatin 40 mg Tablet 40 mg PO QHS Qty: 0 0RF pantoprazole 40 mg Tablet,Delayed Release (Dr/Ec) 40 mg PO DAILY Qty: 0 0RF losartan 25 mg Tablet 25 mg PO DAILY Qty: 0 0RF Rx Instructions: Hold for SBP less than 120 mmHg carvedilol 12.5 mg tablet 12.5 mg PO BID Qty: 180 4RF Discontinued sennosides-docusate sodium [Stimulant Laxative Plus] 8.6-50 mg Tablet 2 tab PO BID Qty: 0 0RF acetaminophen [Acetaminophen Pain Relief] 500 mg tablet 1,000 mg PO Q8H 30 Days Qty: 180 0RF Rx Instructions: 1 g, 3 times daily for 1 week and then 1 g Q8 hourly as needed for moderate to severe pain oxycodone 5 mg Tablet 2.5 - 5 mg PO Q4H PRN PRN (Reason: Pain Score 4-10) Rx Instructions: Oxycodone 2.5 mg for moderate pain (1-3) and 5 mg for severe pain respectively (4-10). Referrals / Follow Up: Eh Huddleston Chi, MD [Primary Care Provider] - Disposition Disposition (needs filled in before D/C Order can be placed): NonSkilled NH/Intermed Care
--- NOTE | 2025-06-04 16:11 | CASEMGMT ---
Social Work Insurance issued LCD 06/06, DC 06/07 JOSEF spoke with pt to inform of DC date and [facility] can accept. SW provided NOMNC to pt and educated to appeal rights. Pt verbalized understanding and denied appeal. Pt is agreeable to DC to [facility] on 06/07. SW will coordinate transport. - JOSEF updated [facility] for DC date. IDT updated. JOSEF scheduled cot transport through [facility] for 1100. PASRR completed in DC paperwork sent to [facility]. - JOSEF emailed to update on DC plans and date as [facility] phone lines were down, and explained this to in email. Plan: DC 06/07 to [facility], intermediate, part B therapies, private pay Julia [id number]
--- NOTE | 2025-06-04 16:19 | NURSING ---
dr. ko reviewed written communication. ordered a stool sample collection and KUB. Stool was collected and tested positive for CDIFF. results reviewed by dr. ko and he ordered oral vancomycin every 6 hours for 10 days. explained to patient. precautions in place.
--- NOTE | 2025-06-04 16:39 | CASEMGMT ---
Social Work Received VM from requesting return call as she spoke with pt and pt told her she was being DCed to [facility] on Saturday and that must be a mistake because I thought we were going to talk about it first. JOSEF returned call to . JOSEF informed that this worker had made several attempts to speak with her last week and this week via phone and email. JOSEF most recently sent VM informing of pt's DC date and destination as [facility] phones were down and just received VM. stated she had not received any communication from this worker. JOSEF explained this worker spoke with pt yesterday to discuss DC plans; SW offered SNF list but pt denied and requested referral to [facility] as that was where her was years ago. [facility] can accept pt and insurance issued DC 06/07 this date,and transport is scheduled for 1100. JOSEF and spoke with pt and received confirmation for agreement to DC 06/07 to [facility]. expressed frustration with lack of communication and [facility] was not an option as pt's there and there are bad memories, and is requesting a referral to [facility]. JOSEF empathized with loss. Noted pt requested that facility and reiterated the multiple attempts at communication. noted she was in [place] last week but received no VMs or emails. Though, still requesting W and she inisted she will be calling [facility]. JOSEF stated can call [facility], however, the referral for placement would need to come from this worker. Agreed to place the referral, however, noted it is 1630 on a Saturday, and pt needs to DC Saturday; thus, the referral may not be answered until Saturday, nor could [facility] accept with short-notice. expressed understanding and frustration with late notice. JOSEF agreed to make referral and notify of outcome. appreciative. - JOSEF phoned Lynnette at [facility] to inquire about availability. [facility] does not have beds in either unit. - JOSEF phoned back within minutes to inform her [facility] does not have beds. Offered once pt admits to [facility], that SW can assist with transferring to [facility] once there are beds. appreciative and acknowledged transport to [facility] on 06/07 at 1100. Julia Mandel MSW CUTTING AND SPLICING SUPERVISOR
[2025-06-04] MEDS: Vancomycin 125 MG/5 ML Susp PO.SYRINGE PO ×2 (17:37→23:56)
--- NOTE | 2025-06-04 17:49 | CASEMGMT ---
Social Work SW completed BIMS () and PHQ-2 () for MDS assessment. Julia Mandel DIRECTOR OF MUSIC EMR SPECIALIST
[2025-06-04] MEDS: Latanoprost 0.005% 1 Bottle 1 DRP OPHTHALMIC (21:01)
[2025-06-05] MEDS: Vancomycin 125 MG/5 ML Susp PO.SYRINGE PO ×4 (05:27→23:48)
[2025-06-05] MEDS: BRIMONIDINE 0.2% 5ML BOTTLE 2 DRP LEFT EYE ×2 (10:32→21:53)
[2025-06-05] MEDS: Dorzolamide HCL/Timolol 10 ml Bottle 1 DRP LEFT EYE ×2 (10:32→21:49)
[2025-06-05] MEDS: APIXABAN 5 MG TABLET PO ×2 (10:33→21:50)
[2025-06-05 10:39] VITALS: BP 143/56; PULSE 70; RESP 16; TEMP 36.6; O2SAT 99
--- NOTE | 2025-06-05 12:33 | NURSING ---
all care provided in pt room d/t special contact precautions
[2025-06-05 17:58] VITALS: BP 144/63; PULSE 74
[2025-06-05] MEDS: Latanoprost 0.005% 1 Bottle 1 DRP OPHTHALMIC (21:49)
--- NOTE | 2025-06-06 02:00 | NURSING ---
Enteric precautions continue, all care provided in room
[2025-06-06] MEDS: Vancomycin 125 MG/5 ML Susp PO.SYRINGE PO ×4 (05:47→23:06)
[2025-06-06] MEDS: Dorzolamide HCL/Timolol 10 ml Bottle 1 DRP LEFT EYE ×2 (09:40→22:42)
[2025-06-06] MEDS: BRIMONIDINE 0.2% 5ML BOTTLE 2 DRP LEFT EYE ×2 (09:40→22:43)
[2025-06-06] MEDS: APIXABAN 5 MG TABLET PO ×2 (09:41→22:43)
[2025-06-06 09:54] VITALS: BP 140/51; PULSE 69; RESP 16; TEMP 36.4; O2SAT 97
[2025-06-06 14:37] VITALS: PULSE 66; RESP 17
[2025-06-06] MEDS: Latanoprost 0.005% 1 Bottle 1 DRP OPHTHALMIC (22:43)
[2025-06-06] MEDS: Senna/Docusate Sodium 1 Tablet PO (22:44)
--- NOTE | 2025-06-07 00:46 | NURSING ---
Special enteric precautions continue as ordered, all care provided in room.
[2025-06-07] MEDS: Vancomycin 125 MG/5 ML Susp PO.SYRINGE PO (05:50)
[2025-06-07 06:42] VITALS: PULSE 65; RESP 18; O2SAT 96
--- NOTE | 2025-06-07 07:25 | NURSING ---
all care provided in room for special contact precautions
[2025-06-07] MEDS: Dorzolamide HCL/Timolol 10 ml Bottle 1 DRP LEFT EYE (09:25)
[2025-06-07] MEDS: BRIMONIDINE 0.2% 5ML BOTTLE 2 DRP LEFT EYE (09:26)
[2025-06-07] MEDS: APIXABAN 5 MG TABLET PO (09:29)
[2025-06-07 09:54] VITALS: BP 125/56; PULSE 67; RESP 16; TEMP 36.3; O2SAT 97
--- NOTE | 2025-06-07 10:43 | NURSING ---
transport here at this time to [facility].
--- NOTE | 2025-06-07 11:00 | NURSING ---
report called to Eliana at [facility] at this time.
== END 2025-06-07 11:10 | disposition intermediate care facility (04) | DRG 560 ==
PROVIDERS: Admitting Provider Family Medicine Geriatric Medicine; PCP Family Medicine Geriatric Medicine; Visit Provider Family Medicine Geriatric Medicine
DX: S72.402D Unspecified fracture of lower end of left femur, subsequent encounter for closed fracture with routine healing (principal); D62 Acute posthemorrhagic anemia; A04.72 Enterocolitis due to Clostridium difficile, not specified as recurrent; N39.0 Urinary tract infection, site not specified; B96.1 Klebsiella pneumoniae [K. pneumoniae] as the cause of diseases classified elsewhere; B96.5 Pseudomonas (aeruginosa) (mallei) (pseudomallei) as the cause of diseases classified elsewhere; I10 Essential (primary) hypertension; E78.00 Pure hypercholesterolemia, unspecified; K21.9 Gastro-esophageal reflux disease without esophagitis; I25.10 Atherosclerotic heart disease of native coronary artery without angina pectoris; W19.XXXD Unspecified fall, subsequent encounter; Z86.73 Personal history of transient ischemic attack (TIA), and cerebral infarction without residual deficits; H40.9 Unspecified glaucoma; Z79.01 Long term (current) use of anticoagulants; G47.00 Insomnia, unspecified; Z86.718 Personal history of other venous thrombosis and embolism; Z79.899 Other long term (current) drug therapy; R33.9 Retention of urine, unspecified; Z79.02 Long term (current) use of antithrombotics/antiplatelets; B96.20 Unspecified Escherichia coli [E. coli] as the cause of diseases classified elsewhere
CPT/HCPCS: 36415; 74019; 80048; 81001; 82274; 85014; 85018; 85025; 87077; 87086; 87088; 87184; 87186; 87493; 87506; 92507; 92523; 97110; 97116; 97150; 97163; 97167; 97530; 97535; 97802; A4216

== ENCOUNTER → 2025-06-01 | Outpatient (CLI) | payer MEDICARE, SELFPAY ==
[2025-04-07 07:10] VITALS: BMI 28.1
--- NOTE | 2025-06-01 10:38 | VDLE_ITS ---
Reason For Study Reason For Study: LLE PAIN RIGHT LEFT CFV is compressible, spontaneous, phasic, competent GSV is normal. and demonstrates normal augmentation. CFV is compressible, spontaneous, phasic, competent, Procedure and demonstrates normal augmentation. This is a venous duplex using B-mode, color flow and FV is compressible, spontaneous, phasic, competent spectral Doppler. and demonstrates normal augmentation. Exam performed portable in patient room. POP V is compressible, spontaneous, phasic, competent The study was technically difficult. and demonstrates normal augmentation. A preliminary report was called and/or faxed to TCU. T/P Trunk is compressible. PTV is compressible. LT PerV is compressible. VL/Venous Duplex US, Unilateral Interpretation Summary Deep veins of the left lower extremity are patent and compressible segmentally. There is no evidence of left lower extremity deep vein thrombosis. The left great saphenous vein appears patent an d compressible segmentally. Ordering Physician: Eh Huddleston Chi Referring Physician: Eh Huddleston Chi Performed By: Berta Walls, RDCS, RVT
== END | disposition home or self-care (01) ==
LOC: CVS 10:37
PROVIDERS: PCP Family Medicine Geriatric Medicine; Referring Provider Family Medicine Geriatric Medicine; Visit Provider Family Medicine Geriatric Medicine
DX: M79.662 Pain in left lower leg (principal)
CPT/HCPCS: 93971

== ENCOUNTER → 2025-06-16 08:40 | Outpatient (REF) | payer MEDICARE, SELFPAY ==
[2025-04-07 07:10] VITALS: BMI 28.1
== END ==
LOC: OLS.WHLTCC 08:40
PROVIDERS: PCP Family Medicine Geriatric Medicine; Visit Provider Internal Medicine
DX: R19.7 Diarrhea, unspecified (principal)
CPT/HCPCS: 87493

== ENCOUNTER → 2025-06-17 05:00 | Outpatient (REF) | payer MEDICARE, SELFPAY ==
[2025-04-07 07:10] VITALS: BMI 28.1
--- OUTSIDE RECORDS SUMMARY | 2025-06-17 04:55 | XMS RPT_ITS | CCD ---
Author Organization [facility] CliniSyde Care Team Providers Care Audio Video Technician Name Role Phone UMM, SERGIO E Unavailable Unavailable UMM, SERGIO E Unavailable Unavailable UMM, SERGIO E Unavailable Unavailable UMM, SERGIO E Unavailable Unavailable UMM, SERGIO Unavailable Unavailable UMM, SERGIO Unavailable Unavailable Sidney, Fritz Unavailable Unavailable UMM, SERGIO Unavailable Unavailable UMM, SERGIO Unavailable Unavailable Sidney, Fritz Unavailable Unavailable Maynard, Fritz Unavailable Unavailable UMM, SERGIO Unavailable Unavailable UMM, SERGIO Unavailable Unavailable FLAQUITO, EH-CHI Unavailable Unavailable UMM, SERGIO Unavailable Unavailable UMM, SERGIO Unavailable Unavailable FLAQUITO, EH-CHI Unavailable Unavailable UMM, SERGIO Unavailable Unavailable UMM, SERGIO Unavailable Unavailable Dr. Eh Huddleston Chi Primary Care Provider 1([facility])[phone] Dr. Eh Huddleston Chi Referring Provider Dr. Abraham Sheppard Attending Provider 1([facility])[phone] Eh Huddleston Chi Primary Care Provider 1([facility])[phone] Dr. Abraham Sheppard Attending Provider 1([facility])[phone] Dr. Eh Huddleston Chi Primary Care Provider 1([facility])[phone] Dr. Eh Huddleston Chi Referring Provider Sole DOW, VICTOR M Cunningham Attending Provider Dr. Richy Coronado Attending Provider Dr. Richy Coronado Referring Provider 1([facility])[phone] FlaquitoEh dallas Chi Primary Care Provider 1([facility])[phone] Unavailable Primary Care Provider Unavailabl e Flaquito Eh Chi Primary Care Provider Flaquito, Eh Chi Primary Care Provider Flaquito RICKS, Dr. Eh Mckeon Primary Care Provider Flaquito RICKS, Dr. Eh Mckeon Attending Provider [phone] ODILON WELLS Attending Provider [phone] ODILON WELLS Referring Provider JAMES LINDO Referring Unavailable GENOVEVA ARTEAGA Attending Unavailable FLAQUITO, EH CHI Primary Care Unavailable KACY JIMENEZ Referring Unavailable FLAQUITO, EH CHI Primary Care Unavailable ODILON WELLS Referring Unavailable FLAQUITO, EH CHI Primary Care Unavailable ODILON WELLS Referring Unavailable FLAQUITO, EH CHI Primary Care Unavailable FLAQUITO, EH CHI Primary Care Unavailable ODILON WELLS Attending Unavailable FLAQUITO, EH CHI Primary Care Unavailable SHRADDHA, LUBA Referring Unavailable FLAQUITO, EH CHI Primary Care Unavailable SHRADDHA, LUBA Referring Unavailable FLAQUITO, EH CHI Primary Care Unavailable SHRADDHA, LUBA Referring Unavailable ODILON WELLS Attending Unavailable ODILON WELLS Admitting Unavailable KACY JIMENEZ Referring Unavailable FLAQUITO, EH CHI Primary Care Unavailable ODILON WELLS Attending Unavailable WALI TRIANA Attending Unavailable JAMES LINDO Referring Unavailable ODILON WELLS Referring Unavailable FLAQUITO, EH CHI Primary Care Unavailable ODILON WELLS Referring Unavailable FLAQUITO, EH CHI Primary Care Unavailable RADZILOWSKI, DENG Referring Unavailable FLAQUITO, EH CHI Primary Care Unavailable RADZILOWSKI, DENG Referring Unavailable FLAQUITO, EH CHI Primary Care Unavailable RADZILOWSKI, DENG Referring Unavailable FLAQUITO, EH CHI Primary Care Unavailable RADZILOWSKI, DENG Referring Unavailable RADZIMAGDALENASKI, DENG Attending Unavailable FLAQUITO, EH CHI Primary Care Unavailable FLAQUITO, EH CHI Primary Care Unavailable JAMES LINDO Attending Unavailable BERTA RICH Referring Unavailable KACY JIMENEZ Referring Unavailable FLAQUITO, EH CHI Primary Care Unavailable RADZILOWSKI, DENG Referring Unavailable DENG SMITH Attending Unavailable FLAQUITO, EH CHI Primary Care Unavailable ODILON WELLS Referring Unavailable FLAQUITO, EH CHI Primary Care Unavailable RADZILOWSKI, DENG Referring Unavailable FLAQUITO, EH CHI Primary Care Unavailable KACY JIMENEZ Referring Unavailable FLAQUITO, EH CHI Primary Care Unavailable FLAQUITO, EH CHI Primary Care Unavailable ODILON WELLS Referring Unavailable LUCY MCCALL Attending Unavailable ODILON WELLS Referring Unavailable FLAQUITO, EH CHI Primary Care Unavailable FLAQUITO, EH CHI Primary Care Unavailable SHRADDHA, LUBA Referring Unavailable ODILON WELLS Referring Unavailable FLAQUITO, EH CHI Primary Care Unavailable FLAQUITO, EH CHI Primary Care Unavailable SHRADDHA, LUBA Referring Unavailable JAMES LINDO Referring Unavailable FLAQUITO, EH CHI Primary Care Unavailable HELD, MORRO Referring Unavailable FLAQUITO, EH CHI Primary Care Unavailable HELD, MORRO Referring Unavailable FLAQUITO, EH CHI Primary Care Unavailable FLAQUITO, EH CHI Primary Care Unavailable WALI TRIANA Attending Unavailable THERESE RUELAS Referring Unavailable HELD, MORRO Referring Unavailable FLAQUITO, EH CHI Primary Care Unavailable HELD, MORRO Referring Unavailable FLAQUITO, EH CHI Primary Care Unavailable HELD, MORRO Referring Unavailable FLAQUITO, EH CHI Primary Care Unavailable HELD, MORRO Referring Unavailable FLAQUITO, EH CHI Primary Care Unavailable Flaquito , Dr. Eh Mckeon Primary Care Provider Flaquito RICKS, Dr. Eh Mckeon Attending Provider Flaquito RICKS, Dr. Eh Mckeon Referring Provider Thomas BREWER, Dr. Georges Emergency Provider [facility], Dr. Benjamin Admit Provider Stephenie BREWER, Dr. Benjamin Attending Provider Stephenie BREWER, Dr. Benjamin Other Provider Mathieu RICKS, Dr. Bryant Attending Provider Miki BREWER, Dr. Trevizo Other Provider Nathan Heredia MD Other Provider Unavailable Nikolay RICKS, Dr. Nunes Other Provider [phone] Georgina Sosa MD Other Provider Unavailable Dr. Sondra Lira DO Other Provider Hans RICKS, Dr. Stevenson Other Provider Fredy RICKS, Dr. Ellsworth Other Provider Max RICKS, Dr. Zacarias Other Provider [phone] Jose Manuel RICKS, Dr. Harry Other Provider Dr. Marco Zafar MD Other Provider Jad RICKS, Dr. Funez Other Provider Cristiano RICKS, Melissa Other Provider Araceli RICKS, Dr. Ly Other Provider Chris RICKS, Dr. Garza Other Provider Whitley RICKS, Dr. Ko Other Provider Aj RICKS, Dr. Maria Guadalupe Bundy Other Provider Francis RICKS, Dr. Sheth Other Provider [phone] Nicola RICKS, Dr. Gresham Other Provider Angelina RICKS, Dr. Farr Other Provider Flako RICKS, Dr. Guerrero Other Provider Unavailable Vivi RICKS, Benjamín Other Provider Unavailable Dr. Sourav Casiano DO Attending Provider Vincent RICKS, Dr. Molina Attending Provider Mathieu RICKS, Dr. Bryant Other Provider Flaquito RICKS, Dr. Eh Mckeon Primary Care Provider ODILON WELLS Attending Provider ODILON WELLS Referring Provider Dr. Azul Pratt MD Attending Provider Karen RICKS, Dr. Fernandez Referring Provider Flaquito RICKS, Dr. Eh Mckeon Admit Provider Hattie RICKS, Dr. Zepeda Other Provider Dr. Basim Murillo MD Attending Provider Flaquito RICKS, Dr. Eh Mckeon Other Provider Hattie RICKS, Dr. Zepeda Attending Provider Hattie RICKS, Dr. Zepeda Other Provider Hattie RICKS, Dr. Zepeda Attending Provider Kev RICKS, Dr. Celis Attending Provider Unavail able Eh Huddleston Chi Primary Care Unavailable Basim Murillo Attending Unavailable Sourav Casiano Admitting Unavailable Sourav Casiano Attending Unavailable Santhosh Livingston Consulting Unavailable Flaquito, Eh Chi Primary Care Unavailable Sourav Casiano Consulting Unavailable Mathieu, Manny Attending Unavailable Nathan Heredia Consulting Unavailable Adeli, Amir Consulting Unavailable Hinduja, Georgina Consulting Unavailable Pankaj, Sondra Consulting Unavailable Zha, Elva Consulting Unavailable Fredy, Seng Consulting Unavailable Max, Deann Consulting Unavailable Bittar, Piero Consulting Unavailable Marco Zafar Consulting Unavailable Jad, Armin Consulting Unavailable BeMichael hendrixt Consulting Unavailable Malachi Charles Consulting Unavailable Chris, Kayla Consulting Unavailable Ridha, Mohamed Consulting Unavailable Zaghlouleh, Mhd Gregor Consulting UnavailDomenic Saenz Consulting Unavailable Mp Petersen Consulting Unavailable Yordan Alfaro Consulting Unavailable Yolanda Arriola Consulting Unavailable Benjamín Trinidad Consulting Unavailable Mathieu, Manny Consulting Unavailable SEGUNDO, 1 Referring Unavailable SEGUNDO, 1 Attending Unavailable Flaquito, Eh Chi Primary Care Unavailable Flaquito, Eh Chi Primary Care Unavailable Flaquito, Eh Chi Attending Unavailable SEGUNDO, 1 Referring Unavailable SEGUNDO, 1 Attending Unavailable Flaquito, Eh Chi Primary Care Unavailable Flaquito, Eh Chi Primary Care Unavailable Vimal Trimble Attending Unavailable Flaquito, Eh Chi Primary Care Unavailable Vimal Trimble Attending Unavailable SEGUNDO, 1 Referring Unavailable SEGUNDO, 1 Attending Unavailable Flaquito, Eh Chi Primary Care Unavailable Flaquito, Eh Chi Primary Care Unavailable Flaquito, Eh Chi Referring Unavailable Flaquito, Eh Chi Attending Unavailable Flaquito, Eh Chi Primary Care Unavailable Flaquito, Eh Chi Referring Unavailable Flaquito, Eh Chi Attending Unavailable Abdi Murdocksh Attending Unavailable Sourav Casiano Consulting Unavailable Sourav Casiano Admitting Unavailable Flaquito, Eh Chi Primary Care Unavailable Santhosh Livingston Consulting Unavailable Nathan Heredia Consulting Unavailable Adeli, Amir Consulting Unavailable Hinduja, Georgina Consulting Unavailable Pankaj, Sondra Consulting Unavailable Zha, Elva Consulting Unavailable Fredy, Seng Consulting Unavailable Max, Deann Consulting Unavailable Bittar, Piero Consulting Unavailable Marco Zafar Consulting Unavailable Street, Armin Consulting Unavailable Beigel, Melissa Consulting Unavailable Gusler, Malachi Consulting Unavailable Chris, Kayla Consulting Unavailable Ridha, Mohamed Consulting Unavailable Zaghlouleh, Mhd Gregor Consulting UnavailDomenic Saenz Consulting Unavailable Mp Petersen Consulting Unavailable Yordan Alfaro Consulting Unavailable Yolanda Arriola Consulting Unavailable Benjamín Trindiad Consulting Unavailable Flaquito, Eh Chi Admitting Unavailable Flaquito, Eh Chi Primary Care Unavailable Katelyn Kuhn Consulting Unavailable Flaquito, Eh Chi Attending Unavailable SEGUNDO, 1 Attending Unavailable SEGUNDO, 1 Referring Unavailable Flaquito, Eh Chi Primary Care Unavailable SEGUNDO, 1 Attending Unavailable SEGUNDO, 1 Referring Unavailable Flaquito, Eh Chi Primary Care Unavailable SEGUNDO, 1 Referring Unavailable SEGUNDO, 1 Attending Unavailable Flaquito, Eh Chi Primary Care Unavailable SEGUNDO, 1 Referring Unavailable SEGUNDO, 1 Attending Unavailable Flaquito, Eh Chi Primary Care Unavailable Katelyn Kuhn Attending Unavailable Flaquito, Eh Chi Admitting Unavailable Flaquito, Eh Chi Primary Care Unavailable Flaquito, Eh Chi Consulting Unavailable Tracy Kaur Attending Unavailable Flaquito, Eh Chi Primary Care Unavailable Flaquito, Eh Chi Primary Care Unavailable Jim Jones Referring Unavailable Azul Pratt Attending Unavailable Medications Current Medications Medication Drug Class(es) Dates Sig (Normalized) Sig (Original) acetaminophen 500 mg oral tablet (6 sources) Start: 06-04-2025 take 2 tablets by mouth every six hours as needed for pain Acetaminophen 500 mg Tablet Active 1000 mg PO EVERY 6 HOURS NEEDED as needed for Pain Score 1-10 0 0 June 04, 2025 12:00am Start: 05-14-2025 End: 06-04-2025 take 1 g by mouth three times daily as needed for pain, then take 1 g by mouth once as needed for pain, then take 8 tablets by mouth every hour as needed for pain Acetaminophen (Acetaminophen Pain Relief) 500 mg tablet Discontinued 1000 mg PO Q8H 180 30 0 May 14, 2025 12:00am June 04, 2025 2:53pm Pain 1-10 Or Fever >100.7 1 g, 3 times daily for 1 week and then 1 g Q8 hourly as needed for moderate to severe pain amoxicillin 500 mg oral capsule (5 sources) Penicillin-class Antibacterial Start: 03-04-2025 amoxicillin (AMOXIL) 500 mg capsule Please take 4 capsules by mouth 30-60 minutes prior to dental appointment 4 capsule 03/04/2025 Active apixaban 5 mg oral tablet (12 sources) Factor Xa Inhibitor Start: 03-02-2025 End: 06-24-2025 take 1 tablet by mouth twice daily apixaban (ELIQUIS) 5 mg tab(s) Take 1 tablet by mouth two times a day. 60 tablet 2 03/26/2025 06/24/2025 Active ascorbic acid 500 mg oral tablet (2 sources) Vitamin C Start: 06-04-2025 Ascorbic Acid (Vitamin C) 500 mg Tablet Active 500 mg PO 1000 0 0 June 04, 2025 12:00am atorvastatin 40 mg oral tablet (20 sources) HMG-CoA Reductase Inhibitor Start: 11-28-2017 End: 05-07-2025 take 1 tablet by mouth at bedtime Atorvastatin 40 mg Tablet Active 40 mg PO AT BEDTIME 0 0 May 14, 2025 12:00am cholesterol Comment on above: Take 1 tablet by debra th once daily. brimonidine tartrate 2 mg/ml ophthalmic solution (20 sources) alpha-Adrenergic Agonist Start: 11-25-2017 End: 10-29-2024 take 2 drop(s) into the eye(s) twice daily brimonidine (ALPHAGAN) 0.2 % ophthalmic solution Use 2 Drops in the left eye two times a day. 10/29/2024 Active Comment on above: Use 2 Drops in both eyes twice daily. carvedilol 12.5 mg oral tablet (20 sources) alpha-Adrenergic Madhu, beta-Adrenergic Madhu Start: 11-28-2017 End: 11-03-2024 take 1 tablet by mouth twice daily at mealtime carvedilol (COREG) 12.5 mg tablet Indications: ASHD (arteriosclerotic heart disease) , Essential hypertension Take 1 tablet by mouth twice daily with meals. 180 tablet 1 03/24/2019 Active Comment on above: Take 1 tablet by debra th twice daily with meals. clopidogrel 75 mg oral tablet (20 sources) P2Y12 Platelet Inhibitor Start: 11-01-2024 End: 05-31-2025 take 1 tablet by mouth once daily clopidogrel (PLAVIX) 75 mg tablet Take 1 tablet by mouth once daily. 30 tablet 2 03/02/2025 Active Start: 11-28-2017 End: 04-06-2024 take 1 tablet by mouth once daily Clopidogrel 75 mg tablet Discontinued 75 mg PO DAILY 90 4 August 21, 2023 4:59pm March 16, 2024 2:37pm Comment on above: Take 1 tablet by debra once daily. docusate sodium 50 mg / sennosides, retirement 8.6 mg oral tablet (6 sources) Start: 05-14-2025 End: 06-04-2025 Sennosides-Docusat e Sodium (Stimulant Laxative Plus) 8.6-50 mg Tablet Active 1 {tbl} PO TWICE A DAY 0 0 June 04, 2025 12:00am dorzolamide 20 mg/ml / timolol 5 mg/ml ophthalmic solution (15 sources) Carbonic Anhydrase Inhibitor, beta-Adrenergic Madhu Start: 11-25-2017 take 10 mL into the eye(s) twice daily Dorzolamide-Timolo l 10 ML drops Active 1 NMA EACH EYE TWICE A DAY November 25, 2017 1:00am glaucoma Start: 11-25-2017 Dorzolamide-Ti molol Active 1 DRP EACH EYE TWICE A DAY November 25, 2017 12:00am iv contrast (will be provided with radiology test) (4 sources) Start: 12-23-2024 End: 12-24-2024 inject 1 dose intravenously once iv contrast (will be provided with radiology test) CT Cardiac - No IV access, insert saline lock prior to the sedation, infusion, injection for imaging exam. Discontinue saline lock post exam. If Pt. has a central line or IVAD, may access for administration according to line specific nursing protocol. Once exam is complete flush line and de-access according to line specific nursing protocol in the CT contrast administration guidelines link. 1 Each 12/23/2024 12/24/2024 Active Start: 06-09-2024 End: 06-10-2024 inject 1 dose intravenously once iv contrast (will be provided with radiology test) Indications: Severe aortic stenosis by prior echocardiogram , Encounter for preprocedural cardiovascular examination , Aortic valve disorder CTA CHST/ABD/PEL. No IV access, insert saline lock prior to the sedation, infusion, injection for imaging exam. Discontinue saline lock post exam. If Pt. has a central line or IVAD, may access for administration according to line specific nursing protocol. Once exam is complete flush line and de-access according to line specific nursing protocol in the CT contrast administration guidelines link. 1 Each 0 06/09/2024 06/10/2024 Active ketorolac tromethamine 5 mg/ml ophthalmic solution (9 sources) Nonsteroidal Anti-inflammatory Drug, Cyclooxygenase Inhibitor Start: 04-06-2024 End: 05-04-2024 take 1 drop(s) into the eye(s) four times daily keTORolac (ACULAR) 0.5 % ophthalmic solution Use 1 Drop in the left eye four times daily for 14 days. 5 mL 0 04/20/2024 05/04/2024 Active latanoprost 0.05 mg/ml ophthalmic solution (20 sources) Prostaglandin Analog Start: 12-17-2019 Latanoprost 0.005 % drops Active 1 NMA OPHTHALMIC EVERY EVENING December 17, 2019 1:00am glaucoma Start: 11-25-2017 End: 10-29-2024 take 1 drop(s) into the eye(s) once daily at bedtime latanoprost (XALATAN) 0.005 % ophthalmic solution Use 1 Drop in the left eye daily at bedtime. 10/29/2024 Active Start: 11-25-2017 End: 12-04-2017 Latanoprost 1 DROP bottle Discontinued 1 NMA EACH EYE AT BEDTIME November 25, 2017 1:00am December 04, 2017 3:05pm glaucoma Comment on above: Use 1 Drop in both e yes daily at bedtime. losartan potassium 25 mg oral tablet (4 sources) Angiotensin 2 Receptor Madhu Start: 05-14-20 25 Losartan 25 mg Tablet Active 25 mg PO DAILY 0 0 May 14, 2025 12:00am BP Hold for SBP less than 120 mmHg Menthol / Zinc Oxide (2 sources) Start: 06-04-20 Menthol-Zinc Oxide (Calmoseptine) 0.44-20.6 % Ointment Active 1 NMA TOPICAL TWICE A DAY 0 June 04, 2025 12:00am Please contact the information source for Protocol details. pantoprazole 40 mg delayed release oral tablet (4 sources) Proton Pump Inhibitor Start: 05-14-20 25 take 1 tablet by mouth once daily Pantoprazole 40 mg Tablet,Delayed Release (Dr/Ec) Active 40 mg PO DAILY 0 May 14, 2025 12:00am reflux phenylephrine hydrochloride 25 mg/ml ophthalmic solution (3 sources) alpha-1 Adrenergic Agonist Start: 05-26-20 End: 05-27-20 PHENYLephrine 2.5 % 1 Drop (AK-DILATE, AMBER-SYNEPHRINE) Start: 01-16-2024 End: 01-17-2024 PHENYLephrine 2.5 % 1 Drop ( AK-DILATE, AMBER-SYNEPHRINE) polysaccharide iron complex 150 mg oral capsule (2 sources) Start: 06-04-2025 Polysaccharide Iron Complex (Ferrex 150) 150 mg iron Capsule Active 150 mg PO DAILY 0 0 June 04, 2025 12:00am prednisoLONE acetate 10 mg/ml ophthalmic suspension (9 sources) Corticosteroid Start: 04-06-2024 End: 05-18-2024 take 1 drop(s) into the eye(s) four times daily, then take 1 drop(s) into the eye(s) three times daily, then take 1 drop(s) into the eye(s) twice daily, then take 1 drop(s) into the eye(s) once daily prednisoLONE acetate (PRED FORTE) 1 % ophthalmic suspension Use 1 Drop in the left eye four times daily for 7 days, THEN 1 Drop three times a day for 7 days, THEN 1 Drop two times a day for 7 days, THEN 1 Drop once daily for 7 days. 5 mL 1 04/20/2024 05/18/2024 Active tamsulosin hydrochloride 0.4 mg oral capsule (2 sources) alpha-Adrenergic Madhu Start: 06-04-2025 take 1 capsule by mouth twice daily Tamsulosin 0.4 mg Capsule Active 0.4 mg PO BID@0830,1730 0 0 June 04, 2025 12:00am temazepam 30 mg oral capsule (20 sources) Benzodiazepine Start: 05-07-2025 take 1 capsule by mouth once daily Temazepam 30 mg capsule Active 30 mg PO DAILY May 07, 2025 12:00am sleep Start: 11-25-2017 End: 03-16-2024 take 1 capsule by mouth at bedtime as needed for sleep Temazepam 30 mg capsule Discontinued 30 mg PO AT BEDTIME as needed for sleep 30 30 3 January 19, 2022 12:00am March 16, 2024 2:11pm Comment on above: Take 30 mg by mouth at bedtime as needed. nrgnrck-yfosglfaa-kre zolam,PF (UWS-QPLB-KDJ) 0.5-0.15-2 % ophthalmic solution (20 sources) Start: 10-29-2024 take 1 drop(s) into the eye(s) twice daily obrjujh-klyrkgwvi-hu rzolam,PF (YCH-ZIDG-DBZ) 0.5-0.15-2 % ophthalmic solution Use 1 Drop in the left eye two times a day. 10/29/2024 Suspended Start: 10-29-2024 take 1 drop(s) into the eye(s) twice daily nbcxxat-azwbrckwt-sztdmlun,PF (LEIGHTON-BRIM- HELDER) 0.5-0.15-2 % ophthalmic solution Use 1 Drop in the left eye two times a day. 10/29/2024 Active Start: 10-29-2024 End: 10-29-2024 take 1 drop(s) into the eye(s) once daily at bedtime wgzfnhr-ueyscguai-jnuogqzs,PF (LEIGHTON-BRIM- HELDER) 0.5-0.15-2 % ophthalmic solution Use 1 Drop in the left eye daily at bedtime. 10/29/2024 10/29/2024 Discontinued (Adjust Sig - Block E-Cancel) tropicamide 10 mg/ml ophthalmic solution (3 sources) Anticholinergic Start: 05-26-2024 End: 05-27-2024 tropicamide 1 % 1 Drop (MYDRIACYL) Start: 01-16-2024 End: 01-17-2024 tropicamide 1 % 1 Drop (MYDR IACYL) vancomycin 25 mg/ml oral solution (2 sources) Glycopeptide Antibacterial Start: 06-04-2025 Vancomycin (Firvanq) 25 mg/mL Recon Soln Active 125 mg PO EVERY 6 HOURS 0 7 0 June 04, 2025 12:00am Completed/Discontinued Medications Medication Drug Class(es) Dates Sig (Normalized) Sig (Original) aspirin 81 mg delayed release oral tablet (20 sources) Platelet Aggregation Inhibitor, Nonsteroidal Anti-inflammatory Drug Start: 11-28-2017 End: 05-07-2025 take 1 tablet by mouth once daily Aspirin 81 MG tablet Discontinued 81 mg PO DAILY@0800 30 0 November 28, 2017 1:00am May 07, 2025 2:04pm Comment on above: Take 81 mg by mouth once daily. benoxinate hydrochloride 4 mg/ml / fluorescein sodium 3 mg/ml ophthalmic solution (2 sources) Diagnostic Dye Start: 01-16-2024 End: 01-17-2024 fluorescein-benoxi mira 0.3-0.4 % 1 Drop (FLURESS) cefdinir 300 mg oral capsule (15 sources) Cephalosporin Antibacterial Start: 11-28-2017 End: 12-04-2017 take 1 capsule by mouth every twelve hours Cefdinir 300 MG capsule Discontinued 300 mg PO Q12H 10 November 28, 2017 1:00am December 04, 2017 3:05pm DORZOLAMIDE HCL/TIMOLOL MALEAT (DORZOLAMIDE-TIMOLO L OPHTHALMIC) (20 sources) End: 10-29-2024 take 1 drop(s) into the eye(s) twice daily DORZOLAMIDE HCL/TIMOLOL MALEAT (DORZOLAMIDE-TIMOL OL OPHTHALMIC) Use 1 Drop in eyes twice daily. 10/29/2024 Discontinued (Course of therapy completed) take 1 drop(s) into the eye(s) twice daily DORZOLAMIDE HCL/TIMOLOL MALEAT (DORZOLAMIDE-TIMOLOL OPHTHALMIC) Use 1 Drop in eyes twice daily. Active take 1 drop(s) into the eye(s) twice daily DORZOLAMIDE HCL/TIMOLOL MALEAT (DORZOLAMIDE-TIMOLOL OPHTHALMIC) Use 1 Drop in eyes twice daily. 0 Active Comment on above: Use 1 Drop in eyes t wice daily. 12 hr guaiFENesin 1200 mg extended release oral tablet (15 sources) Start: 11-28-19 18 End: 12-04-19 18 take 1 tablet by mouth twice daily Guaifenesin 1,200 MG tablet Discontinued 1200 mg PO TWICE A DAY 60 0 November 28, 2017 1:00am December 04, 2017 3:05pm metFORMIN hydrochloride 500 mg oral tablet (15 sources) Biguanide Start: 11-28-19 18 End: 12-04-19 18 take 1 tablet by mouth once daily Metformin 500 MG tablet Discontinued 500 mg PO DAILY 30 0 November 28, 2017 1:00am December 04, 2017 3:05pm moxifloxacin 5 mg/ml ophthalmic solution (20 sources) Quinolone Antimicrobial Start: 04-20-20 24 End: 10-29-19 25 take 1 drop(s) into the eye(s) four times daily moxifloxacin (VIGAMOX) 0.5 % ophthalmic solution Use 1 Drop in the left eye four times daily. 3 mL 04/20/2024 10/29/2024 Discontinued (Course of therapy completed) Start: 04-06-2024 take 1 drop(s) into the eye(s) four times daily moxifloxacin (VIGAMOX) 0.5 % ophthalmic solution Use 1 Drop in the left eye four times daily. 3 mL 0 04/06/2024 Active oxyCODONE hydrochloride 5 mg oral tablet (7 sources) Opioid Agonist Start: 05-14-2025 End: 06-04-2025 Oxycodone 5 mg Tablet Discontinued 2.5 - 5 mg PO EVERY 4 HOURS NEEDED as needed for Pain Score 4-10 0 0 May 14, 2025 May 14, 2025 3:14pm Oxycodone 2.5 mg for moderate pain and 5 mg for severe pain respectively. proparacaine hydrochloride 5 mg/ml ophthalmic solution (2 sources) Local Anesthetic Start: 01-16-2024 End: 01-17-2024 proparacaine 0.5 % 1 Drop (ALCAINE) 12 hr timolol 5 mg/ml ophthalmic solution (3 sources) beta-Adrenergic Madhu End: 04-06-2024 take 1 drop(s) into the eye(s) twice daily timolol hemihydrate (BETIMOL) 0.5 % ophthalmic solution Use 1 Drop in both eyes twice daily. 0 04/06/2024 Discontinued Comment on above: Use 1 Drop in both e yes twice daily. traZODone hydrochloride 100 mg oral tablet (3 sources) Serotonin Reuptake Inhibitor Start: 08-12-2015 End: 04-06-2024 take 1 tablet by mouth once daily at bedtime traZODone (DESYREL) 100 mg tablet Indications: Primary insomnia Take 1 tablet by mouth daily at bedtime. 30 tablet 1 08/12/2015 04/06/2024 Discontinued Comment on above: Take 1 tablet by debra th daily at bedtime. valsartan 160 mg oral tablet (20 sources) Angiotensin 2 Receptor Madhu Start: 05-07-2025 End: 05-14-2025 Valsartan 160 mg tablet Discontinued 80 mg PO DAILY May 07, 2025 12:00am May 14, 2025 12:09pm Start: 04-20-2024 take 0.5 tablet by m outh once daily valsartan (DIOVAN) 160 mg tablet Take 0.5 tablets by mouth once daily. 04/20/2024 Active Start: 03-16-2024 End: 05-07-2025 take 1 tablet by mouth once daily Valsartan 80 mg tablet Discontinued 80 mg PO DAILY 90 4 March 16, 2024 2:28pm May 07, 2025 2:06pm Start: 11-28-2017 End: 03-16-2024 take 1 tablet by mouth once daily Valsartan 160 mg tablet Discontinued 160 mg PO DAILY 90 4 August 21, 2023 4:59pm March 16, 2024 2:28pm Comment on above: Take 1 tablet by debra th once daily. Problems Active Problems Problem Classification Problem Date Documented Da te Episodic/Chronic Acute cerebrovascular disease (7 sources) Cerebrovascular accident; Translations: [Cerebral infarction, unspecified] Onset: 06-08-2025 05-14-2025 Chronic Acute cerebrovascular disease (6 sources) Acute cerebrovascular disease Acute myocardial infarction (2 sources) Non-ST elevation (NSTEMI) myocardial infarction; Translations: [Non-ST elevation (NSTEMI) myocardial infarction] Onset: 12-23-2017 Chronic Administrative/social admission (1 source) First encounter by subject; Translations: [Persons encountering health services in other specified circumstances] 08-31-2024 Episodic Cataract (7 sources) Total, mature senile cataract; Translations: [Other age-related cataract] 01-16-2024 Chronic Congestive heart failure; nonhypertensive (20 sources) Chronic diastolic heart failure; Translations: [Chronic diastolic (congestive) heart failure] Onset: 10-29-2024 08-31-2024 Chronic Coronary atherosclerosis and other heart disease (20 sources) Atherosclerotic heart disease of [place] coronary artery without angina pectoris; 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] Onset: 12-30-2017 Chronic Comment on above: Moderate 3 vessel di sease: LAD: significant mid vessel disease with multiple moderate stenosis thruout mid and mid-distal LAD; LCX: moderate diffuse disease; RCA:moderate diffuse disease 12/27/17 Diabetes mellitus without complication (15 sources) Prediabetes; Translations: [Prediabetes] 11-28-2017 Episodic Disorders of lipid metabolism (20 sources) Pure hypercholesterolemia; Translations: [Pure hypercholesterolemia, unspecified] Onset: 02-26-2019 Chronic E Codes: Fall (15 sources) Fall; Translations: [Unspecified fall, initial encounter] 06-05-2022 Episodic Essential hypertension (20 sources) Essential (primary) hypertension; Translations: [Essential hypertension] Onset: 09-09-2017 Chronic Fracture of lower limb (15 sources) Fracture of distal end of femur; Translations: [Unspecified fracture of lower end of unspecified femur, initial encounter for closed fracture] Onset: 05-27-2025 05-07-2025 Episodic Genitourinary symptoms and ill-defined conditions (5 sources) Retention of urine; Translations: [Retention of urine, unspecified] Onset: 06-08-2025 06-03-2025 Episodic Glaucoma (20 sources) Open-angle glaucoma of left eye; 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, left eye, severe stage] Onset: 04-07-2024 01-16-2024 Chronic Heart valve disorders (20 sources) Aortic stenosis, non-rheumatic ; Translations: [Nonrheumatic aortic (valve) stenosis] Onset: 04-07-2024 Chronic Comment on above: Mild Malaise and fatigue (20 sources) Asthenia; Translations: [Weakness] Onset: 06-08-2025 06-05-2022 Episodic Open wounds of extremities (15 sources) Laceration of lower limb; Translations: [Laceration without foreign body, unspecified lower leg, initial encounter] 06-05-2022 Episodic Open wounds of head; neck; and trunk (15 sources) Laceration of lip ; Translations: [Laceration without foreign body of lip, initial encounter] 06-05-2022 Episodic Other connective tissue disease (1 source) Pain in left lower leg; Translations: [Pain in left lower leg] Onset: 06-09-2025 Episodic Other injuries and conditions due to external causes (15 sources) Closed injury of head; Translations: [Unspecified injury of head, initial encounter] 06-05-2022 Episodic Other injuries and conditions due to external causes (15 sources) Abrasion and/or friction burn of multiple sites; Translations: [Unspecified multiple injuries, initial encounter] 06-05-2022 Episodic Peripheral and visceral atherosclerosis (2 sources) Peripheral vascular disease, unspecified; Translations: [Peripheral vascular disease, unspecified] Onset: 12-23-2024 10-30-2024 Chronic Phlebitis; thrombophlebitis and thromboembolism (8 sources) Acute deep venous thrombosis of calf; Translations: [Acute embolism and thrombosis of right calf muscular vein] Onset: 06-08-2025 03-02-2025 Episodic Residual codes; unclassified (1 source) Insomnia, unspecified; Translations: [Insomnia, unspecified] Onset: 06-08-2025 Episodic Retinal detachments; defects; vascular occlusion; and retinopathy (1 source) Blind hypertensive eye; 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, right eye] 01-16-2024 Chronic Syncope (15 sources) Near syncope; Translations: [Syncope and collapse] 11-28-2017 Episodic Unclassified (1 source) Unknown / UNK(Unknown) Onset: 12-23-2017 Unclassified (1 source) Acute embolism and thrombosis of right calf muscular vein; Translations: [Acute deep vein thrombosis (DVT) of calf muscle vein of right lower extremity (HCC)] Onset: 03-02-2025 Unclassified (2 sources) Needs f/u for rdz removal, voiding trials Urinary tract infections (5 sources) Urinary tract infectious disease; Translations: [Urinary tract infection, site not specified] Onset: 06-08-2025 06-03-2025 Episodic Past or Other Problems Problem Classification Problem Date Documented Da te Episodic/Chronic Residual codes; unclassified (20 sources) Insomnia; Translations: [Insomnia, unspecified] Onset: 04-07-2024 04-07-2024 Episodic Unclassified (7 sources) Severe aortic stenosis 12-23-2024 Results Test Name Value Interpretation Reference Range Facility Basic Metabolic Profile (BMP )on 06-19-2025 BUN Normal 4-19 [facility] Comment on above: Result Comment: Canc elled via OM: Ordered/Entered in error Performed By: #### L 500.2500 ####[facility] [address] [place], [address] BUN/CRE Normal 10-20 [facility] Comment on above: Result Comment: Canc elled via OM: Ordered/Entered in error Performed By: #### L 500.2500 ####[facility] [address] [facility] [place], [address] Calcium Normal 7.6-11.0 [facility] Comment on above: Result Comment: Canc elled via OM: Ordered/Entered in error Performed By: #### L 500.2500 ####[facility] [address] [place], [address] CL Normal 98-108 [facility] Comment on above: Result Comment: Canc elled via OM: Ordered/Entered in error Performed By: #### L 500.2500 ####[facility] [address] [place], [address] CO2 Normal 21.0-32.0 [facility] Comment on above: Result Comment: Canc elled via OM: Ordered/Entered in error Performed By: #### L 500.2500 ####[facility] [address] [place], [address] CREAT,SERUM Normal 0.70-1.20 [facility] Comment on above: Result Comment: Canc elled via OM: Ordered/Entered in error Performed By: #### L 500.2500 ####[facility] [address] [place], [address] eGFR Normal >60 [facility] Comment on above: Result Comment: Canc elled via OM: Ordered/Entered in error Performed By: #### L 500.2500 ####[facility] [address] [place], [address] GAP Normal 5-15 [facility] Comment on above: Result Comment: Canc elled via OM: Ordered/Entered in error Performed By: #### L 500.2500 ####[facility] [address] [place], [address] GLU Normal 70-99 [facility] Comment on above: Result Comment: Canc elled via OM: Ordered/Entered in error Performed By: #### L 500.2500 ####[facility] [address] [place], [address] Potassium Normal 3.3-5.1 [facility] Comment on above: Result Comment: Canc elled via OM: Ordered/Entered in error Performed By: #### L 500.2500 ####[facility] [address], [address] Basic Metabolic Profile (BMP) Normal 133-145 [facility] Comment on above: Result Comment: Canc elled via OM: Ordered/Entered in error Performed By: #### L 500.2500 ####[facility] [address] [place], [address] CBC W/Diff, Automatedon - Absolute Neut Normal 2.0-7.7 [facility] Comment on above: Result Comment: Canc elled via OM: Order cancelled - Patient discharged Performed By: #### L 100.0100 ####[facility] [address] [place], [address] HCT Normal 37-47 [facility] Comment on above: Result Comment: Canc elled via OM: Order cancelled - Patient discharged Performed By: #### L 100.0100 ####[facility] [address] [place], [address] HGB Normal 12.0-15.0 [facility] Comment on above: Result Comment: Canc elled via OM: Order cancelled - Patient discharged Performed By: #### L 100.0100 ####[facility] [address] [place], [address] MCH Normal 27.0-32.0 [facility] Comment on above: Result Comment: Canc elled via OM: Order cancelled - Patient discharged Performed By: #### L 100.0100 ####[facility] [address] [place], [address] MCHC Normal 32-36 [facility] Comment on above: Result Comment: Canc elled via OM: Order cancelled - Patient discharged Performed By: #### L 100.0100 ####[facility] [address] [place], [address] MCV Normal 81-99 [facility] Comment on above: Result Comment: Canc elled via OM: Order cancelled - Patient discharged Performed By: #### L 100.0100 ####[facility] [address] [place], [address] NEUT% Normal 47-70 [facility] Comment on above: Result Comment: Canc elled via OM: Order cancelled - Patient discharged Performed By: #### L 100.0100 ####[facility] [address] [place], [address] PLT Normal 150-450 [facility] Comment on above: Result Comment: Canc elled via OM: Order cancelled - Patient discharged Performed By: #### L 100.0100 ####[facility] [address] [place], [address] RBC Normal 4.2-5.4 [facility] Comment on above: Result Comment: Canc elled via OM: Order cancelled - Patient discharged Performed By: #### L 100.0100 ####[facility] [address] [place], [address] RDW CV Normal 11.6-14.6 [facility] Comment on above: Result Comment: Canc elled via OM: Order cancelled - Patient discharged Performed By: #### L 100.0100 ####[facility] [address] [place], [address] RDW SD Normal 35.1-43.9 [facility] Comment on above: Result Comment: Canc elled via OM: Order cancelled - Patient discharged Performed By: #### L 100.0100 ####[facility] [address], [address] WBC Normal 4.4-11.0 [facility] Comment on above: Result Comment: Canc elled via OM: Order cancelled - Patient discharged Performed By: #### L 100.0100 ####[facility] [address] [place], [address] Basic Metabolic Profile (BMP )on 06-12-2025 BUN Normal 4-19 [facility] Comment on above: Result Comment: Canc elled via OM: Ordered/Entered in error Performed By: #### L 500.2500 ####[facility] [address] [place], [address] BUN/CRE Normal 10-20 [facility] Comment on above: Result Comment: Canc elled via OM: Ordered/Entered in error Performed By: #### L 500.2500 ####[facility] [address] [place], [address] Calcium Normal 7.6-11.0 [facility] Comment on above: Result Comment: Canc elled via OM: Ordered/Entered in error Performed By: #### L 500.2500 ####[facility] [address] [place], [address] CL Normal 98-108 [facility] Comment on above: Result Comment: Canc elled via OM: Ordered/Entered in error Performed By: #### L 500.2500 ####[facility] [address] [place], [address] CO2 Normal 21.0-32.0 [facility] Comment on above: Result Comment: Canc elled via OM: Ordered/Entered in error Performed By: #### L 500.2500 ####[facility] [address] [place], [address] CREAT,SERUM Normal 0.70-1.20 [facility] Comment on above: Result Comment: Canc elled via OM: Ordered/Entered in error Performed By: #### L 500.2500 ####[facility] [address] [place], [address] eGFR Normal >60 [facility] Comment on above: Result Comment: Canc elled via OM: Ordered/Entered in error Performed By: #### L 500.2500 ####[facility] [address] [place], [address] GAP Normal 5-15 [facility] Comment on above: Result Comment: Canc elled via OM: Ordered/Entered in error Performed By: #### L 500.2500 ####[facility] [address] [place], [address] GLU Normal 70-99 [facility] Comment on above: Result Comment: Canc elled via OM: Ordered/Entered in error Performed By: #### L 500.2500 ####[facility] [address] [place], [address] Potassium Normal 3.3-5.1 [facility] Comment on above: Result Comment: Canc elled via OM: Ordered/Entered in error Performed By: #### L 500.2500 ####[facility] [address] [place], [address] Basic Metabolic Profile (BMP) Normal 133-145 [facility] Comment on above: Result Comment: Canc elled via OM: Ordered/Entered in error Performed By: #### L 500.2500 ####[facility] [address] [place], [address] Basic Metabolic Profile (BMP )on 06-11-2025 BUN Normal 4-19 [facility] Comment on above: Result Comment: Canc elled via OM: Order cancelled - Patient discharged Performed By: #### L 500.2500 ####[facility] [address] [place], [address] BUN/CRE Normal 10-20 [facility] Comment on above: Result Comment: Canc elled via OM: Order cancelled - Patient discharged Performed By: #### L 500.2500 ####[facility] [address] [place], [address] Calcium Normal 7.6-11.0 [facility] Comment on above: Result Comment: Canc elled via OM: Order cancelled - Patient discharged Performed By: #### L 500.2500 ####[facility] [address] [place], [address] CL Normal 98-108 [facility] Comment on above: Result Comment: Canc elled via OM: Order cancelled - Patient discharged Performed By: #### L 500.2500 ####[facility] [address] [place], [address] CO2 Normal 21.0-32.0 [facility] Comment on above: Result Comment: Canc elled via OM: Order cancelled - Patient discharged Performed By: #### L 500.2500 ####[facility] [address] [place], [address] CREAT,SERUM Normal 0.70-1.20 [facility] Comment on above: Result Comment: Canc elled via OM: Order cancelled - Patient discharged Performed By: #### L 500.2500 ####[facility] [address] [place], [address] eGFR Normal >60 [facility] Comment on above: Result Comment: Canc elled via OM: Order cancelled - Patient discharged Performed By: #### L 500.2500 ####[facility] [address] [place], [address] GAP Normal 5-15 [facility] Comment on above: Result Comment: Canc elled via OM: Order cancelled - Patient discharged Performed By: #### L 500.2500 ####[facility] [address] [place], [address] GLU Normal 70-99 [facility] Comment on above: Result Comment: Canc elled via OM: Order cancelled - Patient discharged Performed By: #### L 500.2500 ####[facility] [address] [place], [address] Potassium Normal 3.3-5.1 [facility] Comment on above: Result Comment: Canc elled via OM: Order cancelled - Patient discharged Performed By: #### L 500.2500 ####[facility] [address] [place], [address] Basic Metabolic Profile (BMP) Normal 133-145 [facility] Comment on above: Result Comment: Canc elled via OM: Order cancelled - Patient discharged Performed By: #### L 500.2500 ####[facility] [address] [place], [address] CBC W/Diff, Automatedon 08- Absolute Neut Normal 2.0-7.7 [facility] Comment on above: Result Comment: Canc elled via OM: Order cancelled - Patient discharged Performed By: #### L 100.0100 ####[facility] [address] [place], [address] HCT Normal 37-47 [facility] Comment on above: Result Comment: Canc elled via OM: Order cancelled - Patient discharged Performed By: #### L 100.0100 ####[facility] [address] [place], [address] HGB Normal 12.0-15.0 [facility] Comment on above: Result Comment: Canc elled via OM: Order cancelled - Patient discharged Performed By: #### L 100.0100 ####[facility] [address] [place], [address] MCH Normal 27.0-32.0 [facility] Comment on above: Result Comment: Canc elled via OM: Order cancelled - Patient discharged Performed By: #### L 100.0100 ####[facility] [address], [address] MCHC Normal 32-36 [facility] Comment on above: Result Comment: Canc elled via OM: Order cancelled - Patient discharged Performed By: #### L 100.0100 ####[facility] [address] [place], [address] MCV Normal 81-99 [facility] Comment on above: Result Comment: Canc elled via OM: Order cancelled - Patient discharged Performed By: #### L 100.0100 ####[facility] [address] [place], [address] NEUT% Normal 47-70 [facility] Comment on above: Result Comment: Canc elled via OM: Order cancelled - Patient discharged Performed By: #### L 100.0100 ####[facility] [address] [place], [address] PLT Normal 150-450 [facility] Comment on above: Result Comment: Canc elled via OM: Order cancelled - Patient discharged Performed By: #### L 100.0100 ####[facility] [address] [place], [address] RBC Normal 4.2-5.4 [facility] Comment on above: Result Comment: Canc elled via OM: Order cancelled - Patient discharged Performed By: #### L 100.0100 ####[facility] [address] [place], [address] RDW CV Normal 11.6-14.6 [facility] Comment on above: Result Comment: Canc elled via OM: Order cancelled - Patient discharged Performed By: #### L 100.0100 ####[facility] [address] [place], [address] RDW SD Normal 35.1-43.9 [facility] Comment on above: Result Comment: Canc elled via OM: Order cancelled - Patient discharged Performed By: #### L 100.0100 ####[facility] [address] [place], [address] WBC Normal 4.4-11.0 [facility] Comment on above: Result Comment: Canc elled via OM: Order cancelled - Patient discharged Performed By: #### L 100.0100 ####[facility] [address] [place], [address] Basic Metabolic Profile (BMP )on 06-10-2025 BUN/CRE 20.8 RATIO High 10-20 [facility] Comment on above: Order Comment: 111.1 Performed By: #### L 500.2500, L100.0500 ####[facility] [address] [place], [address] Calcium [Mass/Vol] 9.2 mg/dL Normal 7.6-11.0 [facility] Comment on above: Order Comment: 111.1 Performed By: #### L 500.2500, L100.0500 ####[facility] [address] [place], [address] Chloride [Moles/Vol] 103 mmol/L Normal 98-108 [facility] Comment on above: Order Comment: 111.1 Performed By: #### L 500.2500, L100.0500 ####[facility] [address] [place], [address] CO2 [Moles/Vol] 25.2 mmol/L Normal 21.0-32.0 [facility] Comment on above: Order Comment: 111.1 Performed By: #### L 500.2500, L100.0500 ####[facility] [address] [place], [address] Creatinine [Mass/Vol] 0.68 mg/dL Low 0.70-1.20 [facility] Comment on above: Order Comment: 111.1 Performed By: #### L 500.2500, L100.0500 ####[facility] [address] [place], [address] GAP 10 Normal 5-15 [facility] Comment on above: Order Comment: 111.1 Performed By: #### L 500.2500, L100.0500 ####[facility] [address] [place], [address] GFR/1.73 sq M.predicted among non-blacks MDRD (S/P/Bld) [Vol rate/Area] 85 mL/min/{1.73_m2} Normal >60 [facility] Comment on above: Order Comment: 111.1 Result Comment: mL/m in/1.73m2 CKD-EPI Creatinine Equation (2020) Performed By: #### L 500.2500, L100.0500 ####[facility] [address], [address] Glucose [Mass/Vol] 104 mg/dL High 70-99 [facility] Comment on above: Order Comment: 111.1 Performed By: #### L 500.2500, L100.0500 ####[facility] [address], [address] Potassium [Moles/Vol] 4.0 mmol/L Normal 3.3-5.1 [facility] Comment on above: Order Comment: 111.1 Performed By: #### L 500.2500, L100.0500 ####[facility] [address], [address] Sodium [Moles/Vol] 137 mmol/L Normal 133-145 [facility] Comment on above: Order Comment: 111.1 Performed By: #### L 500.2500, L100.0500 ####[facility] [address] [place], [address] Urea nitrogen [Mass/Vol] 14 mg/dL Normal 4-19 [facility] Comment on above: Order Comment: 111.1 Performed By: #### L 500.2500, L100.0500 ####[facility] [address], [address] CBC-Complete Blood Cnt No Di ffon 06-10-2025 Erythrocyte distribution width (RBC) [Ratio] 14.8 % High 11.6-14.6 [facility] Comment on above: Order Comment: 111.1 Performed By: #### L 500.2500, L100.0500 ####[facility] [address], [address] Hematocrit (Bld) [Volume fraction] 32.1 % Low 37-47 [facility] Comment on above: Order Comment: 111.1 Performed By: #### L 500.2500, L100.0500 ####[facility] [address] [place], [address] Hemoglobin (Bld) [Mass/Vol] 10.4 g/dL Low 12.0-15.0 [facility] Comment on above: Order Comment: 111.1 Performed By: #### L 500.2500, L100.0500 ####[facility] [address] [place], [address] MCH (RBC) [Entitic mass] 30.8 pg Normal 27.0-32.0 [facility] Comment on above: Order Comment: 111.1 Performed By: #### L 500.2500, L100.0500 ####[facility] [address] [place], [address] MCHC (RBC) [Mass/Vol] 32.4 g/dL Normal 32-36 [facility] Comment on above: Order Comment: 111.1 Performed By: #### L 500.2500, L100.0500 ####[facility] [address] [place], [address] MCV (RBC) [Entitic vol] 95.0 fL Normal 81-99 [facility] Comment on above: Order Comment: 111.1 Performed By: #### L 500.2500, L100.0500 ####[facility] [address] [place], [address] Platelet mean volume (Bld) [Entitic vol] 10.3 fL Normal 6.2-12.0 [facility] Comment on above: Order Comment: 111.1 Performed By: #### L 500.2500, L100.0500 ####[facility] [address] [place], [address] Platelets (Bld) [#/Vol] 197 10*3/uL Normal 150-450 [facility] Comment on above: Order Comment: 111.1 Performed By: #### L 500.2500, L100.0500 ####[facility] [address] [place], [address] RBC (Bld) [#/Vol] 3.38 10*6/uL Low 4.2-5.4 [facility] Comment on above: Order Comment: 111.1 Performed By: #### L 500.2500, L100.0500 ####[facility] [address] [place], [address] RDW SD 51.8 fl High 35.1-43.9 [facility] Comment on above: Order Comment: 111.1 Performed By: #### L 500.2500, L100.0500 ####[facility] [address] [place], [address] WBC (Bld) [#/Vol] 5.5 10*3/uL Normal 4.4-11.0 [facility] Comment on above: Order Comment: 111.1 Performed By: #### L 500.2500, L100.0500 ####[facility] [address] [place], [address] Anion gap in Serum or Plasma Ordered By: Vimal Angulo on 06-08-2025 Anion gap [Moles/Vol] 10 mmol/L 5-15 [facility] BUN/creatinine ratioOrdered By: Vimal Angulo on 06-08-2025 Urea nitrogen/Creatinine [Mass ratio] 26.8 mg/mg High 10-20 [facility] Bilirubin, totalOrdered By: Vimal Angulo on 06-08-2025 Bilirubin [Mass/Vol] 0.42 mg/dL 0.00-1.30 [facility] CBC-Complete Blood Cnt No Di ffon 06-08-2025 Erythrocyte distribution width (RBC) [Ratio] 14.9 % High 11.6-14.6 [facility] Comment on above: Order Comment: 111 Performed By: #### L 501.9310, L501.9985, L100.0500, L500.4100, L500.4050, L501.9520 ####[facility] [address] [place], [address] Hematocrit (Bld) [Volume fraction] 31.1 % Low 37-47 [facility] Comment on above: Order Comment: 111 Performed By: #### L 501.9310, L501.9985, L100.0500, L500.4100, L500.4050, L501.9520 ####[facility] [address] [place], [address] Hemoglobin (Bld) [Mass/Vol] 10.0 g/dL Low 12.0-15.0 [facility] Comment on above: Order Comment: 111 Performed By: #### L 501.9310, L501.9985, L100.0500, L500.4100, L500.4050, L501.9520 ####[facility] [address] [place], [address] MCH (RBC) [Entitic mass] 30.6 pg Normal 27.0-32.0 [facility] Comment on above: Order Comment: 111 Performed By: #### L 501.9310, L501.9985, L100.0500, L500.4100, L500.4050, L501.9520 ####[facility] [address] [place], [address] MCHC (RBC) [Mass/Vol] 32.2 g/dL Normal 32-36 [facility] Comment on above: Order Comment: 111 Performed By: #### L 501.9310, L501.9985, L100.0500, L500.4100, L500.4050, L501.9520 ####[facility] [address] [place], [address] MCV (RBC) [Entitic vol] 95.1 fL Normal 81-99 [facility] Comment on above: Order Comment: 111 Performed By: #### L 501.9310, L501.9985, L100.0500, L500.4100, L500.4050, L501.9520 ####[facility] [address] [place], [address] Platelet mean volume (Bld) [Entitic vol] 9.9 fL Normal 6.2-12.0 [facility] Comment on above: Order Comment: 111 Performed By: #### L 501.9310, L501.9985, L100.0500, L500.4100, L500.4050, L501.9520 ####[facility] [address] [place], [address] Platelets (Bld) [#/Vol] 199 10*3/uL Normal 150-450 [facility] Comment on above: Order Comment: 111 Performed By: #### L 501.9310, L501.9985, L100.0500, L500.4100, L500.4050, L501.9520 ####[facility] [address] [place], [address] RBC (Bld) [#/Vol] 3.27 10*6/uL Low 4.2-5.4 [facility] Comment on above: Order Comment: 111 Performed By: #### L 501.9310, L501.9985, L100.0500, L500.4100, L500.4050, L501.9520 ####[facility] [address] [place], [address] RDW SD 52.9 fl High 35.1-43.9 [facility] Comment on above: Order Comment: 111 Performed By: #### L 501.9310, L501.9985, L100.0500, L500.4100, L500.4050, L501.9520 ####[facility] [address] [place], [place], [id number] WBC (Bld) [#/Vol] 5.1 10*3/uL Normal 4.4-11.0 [facility] Comment on above: Order Comment: 111 Performed By: #### L 501.9310, L501.9985, L100.0500, L500.4100, L500.4050, L501.9520 ####[facility] [address] [place], [place], [id number] Calculated very low density lipoprotein (VLDL) cholesterol measurementOrdered By: Vimal Angulo on 06-08-2025 Calculated very low density lipoprotein (VLDL) cholesterol measurement 12 mg/dL 5-40 [facility] Carbon dioxide, total [Moles /volume] in Central venous bloodOrdered By: Vimal Angulo on 06-08-2025 CO2 [Moles/Vol] 25.3 mmol/L 21.0-32.0 [facility] Chloride assayOrdered By: Jairon Angulo on 06-08-2025 Chloride [Moles/Vol] 103 mmol/L 98-108 [facility] Comprehensive Metabolic Prof ilon 06-08-2025 Albumin [Mass/Vol] 3.2 g/dL Low 3.4-4.8 [facility] Comment on above: Order Comment: 111 Performed By: #### L 501.9310, L501.9985, L100.0500, L500.4100, L500.4050, L501.9520 ####[facility] [address] [place], [place], [id number] Albumin/Globulin [Mass ratio] 1.2 {ratio} Normal 0.9-2.4 [facility] Comment on above: Order Comment: 111 Performed By: #### L 501.9310, L501.9985, L100.0500, L500.4100, L500.4050, L501.9520 ####[facility] [address] [place], [address] ALK PHOS 114 U/L High 35-104 [facility] Comment on above: Order Comment: 111 Performed By: #### L 501.9310, L501.9985, L100.0500, L500.4100, L500.4050, L501.9520 ####[facility] [address] [place], [address] ALT [Catalytic activity/Vol] 5 U/L Normal <=34 [facility] Comment on above: Order Comment: 111 Performed By: #### L 501.9310, L501.9985, L100.0500, L500.4100, L500.4050, L501.9520 ####[facility] [address] [place], [address] AST [Catalytic activity/Vol] 43 U/L High <=31 [facility] Comment on above: Order Comment: 111 Performed By: #### L 501.9310, L501.9985, L100.0500, L500.4100, L500.4050, L501.9520 ####[facility] [address] [place], [address] Bilirubin [Mass/Vol] 0.42 mg/dL Normal 0.00-1.30 [facility] Comment on above: Order Comment: 111 Performed By: #### L 501.9310, L501.9985, L100.0500, L500.4100, L500.4050, L501.9520 ####[facility] [address] [place], [address] BUN/CRE 26.8 RATIO High 10-20 [facility] Comment on above: Order Comment: 111 Performed By: #### L 501.9310, L501.9985, L100.0500, L500.4100, L500.4050, L501.9520 ####[facility] [address] [place], [address] Calcium [Mass/Vol] 9.2 mg/dL Normal 7.6-11.0 [facility] Comment on above: Order Comment: 111 Performed By: #### L 501.9310, L501.9985, L100.0500, L500.4100, L500.4050, L501.9520 ####[facility] [address] [place], [address] Chloride [Moles/Vol] 103 mmol/L Normal 98-108 [facility] Comment on above: Order Comment: 111 Performed By: #### L 501.9310, L501.9985, L100.0500, L500.4100, L500.4050, L501.9520 ####[facility] [address] [place], [address] CO2 [Moles/Vol] 25.3 mmol/L Normal 21.0-32.0 [facility] Comment on above: Order Comment: 111 Performed By: #### L 501.9310, L501.9985, L100.0500, L500.4100, L500.4050, L501.9520 ####[facility] [address] [place], [address] Creatinine [Mass/Vol] 0.64 mg/dL Low 0.70-1.20 [facility] Comment on above: Order Comment: 111 Performed By: #### L 501.9310, L501.9985, L100.0500, L500.4100, L500.4050, L501.9520 ####[facility] [address] [place], [address] GAP 10 Normal 5-15 [facility] Comment on above: Order Comment: 111 Performed By: #### L 501.9310, L501.9985, L100.0500, L500.4100, L500.4050, L501.9520 ####[facility] [address] [place], [address] GFR/1.73 sq M.predicted among non-blacks MDRD (S/P/Bld) [Vol rate/Area] 86 mL/min/{1.73_m2} Normal >60 [facility] Comment on above: Order Comment: 111 Result Comment: mL/m in/1.73m2 CKD-EPI Creatinine Equation (2020) Performed By: #### L 501.9310, L501.9985, L100.0500, L500.4100, L500.4050, L501.9520 ####[facility] [address] [place], [address] Globulin (S) [Mass/Vol] 2.7 g/dL Normal 2.2-4.2 [facility] Comment on above: Order Comment: 111 Performed By: #### L 501.9310, L501.9985, L100.0500, L500.4100, L500.4050, L501.9520 ####[facility] [address] [place], [address] Glucose [Mass/Vol] 104 mg/dL High 70-99 [facility] Comment on above: Order Comment: 111 Performed By: #### L 501.9310, L501.9985, L100.0500, L500.4100, L500.4050, L501.9520 ####[facility] [address] [place], [address] Potassium [Moles/Vol] 3.6 mmol/L Normal 3.3-5.1 [facility] Comment on above: Order Comment: 111 Performed By: #### L 501.9310, L501.9985, L100.0500, L500.4100, L500.4050, L501.9520 ####[facility] [address] [place], [address] Sodium [Moles/Vol] 138 mmol/L Normal 133-145 [facility] Comment on above: Order Comment: 111 Performed By: #### L 501.9310, L501.9985, L100.0500, L500.4100, L500.4050, L501.9520 ####[facility] [address] [place], [address] T PROT 5.9 g/dL Normal 5.9-8.4 [facility] Comment on above: Order Comment: 111 Performed By: #### L 501.9310, L501.9985, L100.0500, L500.4100, L500.4050, L501.9520 ####[facility] [address] [place], [address] Urea nitrogen [Mass/Vol] 17 mg/dL Normal 4-19 [facility] Comment on above: Order Comment: 111 Performed By: #### L 501.9310, L501.9985, L100.0500, L500.4100, L500.4050, L501.9520 ####[facility] [address] [place], [address] Erythrocyte distribution wid th ratioOrdered By: Vimal Angulo on 06-08-2025 Erythrocyte distribution width (RBC) [Ratio] 14.9 % High 11.6-14.6 [facility] Erythrocyte distribution wid th standard deviationOrdered By: Vimal Angulo on 06-08-2025 Erythrocyte distribution width (RBC) [Ratio] 52.9 fl High 35.1-43.9 [facility] Glomerular filtration rate ( GFR) estimation/1.73 sq m using serum, plasma, or whole bOrdered By: Vimal Angulo on 06-08-2025 GFR/1.73 sq M.predicted among non-blacks MDRD (S/P/Bld) [Vol rate/Area] 86 mL/min/{1.73_m2} >60 [facility] Comment on above: mL/min/1.73m2 CKD-EP I Creatinine Equation (2020) Hematocrit Auto (Bld) [Volum e fraction]Ordered By: Vimal Angulo on 06-08-2025 Hematocrit (Bld) [Volume fraction] 31.1 % Low 37-47 [facility] Hemoglobin A1con 06-08-2025 HbA1c (Bld) [Mass fraction] 5.2 % Normal <=5.6 [facility] Comment on above: Order Comment: 111 Result Comment: Norm al < 5.7 % Prediabetic 5.7 - 6.4 % Diabetic >or= 6.5 % Please note range changes. Performed By: #### L 501.9310, L501.9985, L100.0500, L500.4100, L500.4050, L501.9520 ####[facility] [address] [place], [address] Hemoglobin A1c percentageOrd ered By: Vimal Angulo on 06-08-2025 HbA1c (Bld) [Mass fraction] 5.2 % <5.7 [facility] Comment on above: Normal < 5.7 % Predi abetic 5.7 - 6.4 % Diabetic >or= 6.5 % Please note range changes. Hemoglobin measurementOrdere d By: Vimal Angulo on 06-08-2025 Hemoglobin (Bld) [Mass/Vol] 10.0 g/dL Low 12.0-15.0 [facility] LDL calc ser/plasOrdered By: Vimal Angulo on 06-08-2025 Cholesterol in LDL [Mass/Vol] 62 mg/dL [facility] Comment on above: Zbahvealst=054-929 m g/dL & Higher Icgs=980 mg/dL or greaterFriedwald Equation for LDL-C Laboratory - Chemistry and C hemistry - challengeOrdered By: Vimal Angulo on 06-08-2025 AST [Catalytic activity/Vol] 43 U/L High <32 [facility] Lipid Profileon 06-08-2025 CHOL:HDL 2.24 Normal [facility] Comment on above: Order Comment: 111 Performed By: #### L 501.9310, L501.9985, L100.0500, L500.4100, L500.4050, L501.9520 ####[facility] [address] [place], [address] Cholesterol [Mass/Vol] 135 mg/dL Normal <=200 [facility] Comment on above: Order Comment: 111 Result Comment: Chol esterol level, Desirable <200 mg/dLBorderline high cholesterol 200-239 mg/dLHigh cholesterol >=240 mg/dLRecommendations of the NCEP Adult Treatment Panel for thefollowing risk-cutoff thresholds for the [place] Americanpulation. Performed By: #### L 501.9310, L501.9985, L100.0500, L500.4100, L500.4050, L501.9520 ####[facility] [address] [place], [address] Cholesterol in HDL [Mass/Vol] 60 mg/dL Normal [facility] Comment on above: Order Comment: 111 Result Comment: Elaine onal Cholesterol Education Program (NCEP) guidelines:<40 mg/dL: Low HDL-cholesterol (major risk factor for CHD)>= 60 mg/dL: High HDL-cholesterol (negative risk factor forCHD)HDL-cholesterol is affected by a number of factors, e.g.smoking, exercise, hormones, sex and age. Performed By: #### L 501.9310, L501.9985, L100.0500, L500.4100, L500.4050, L501.9520 ####[facility] [address] [place], [address] Cholesterol in LDL [Mass/Vol] 62 mg/dL Normal [facility] Comment on above: Order Comment: 111 Result Comment: Bord urwrwc=274-471 mg/dL Higher Uand=257 mg/dL or greaterFriedwald Equation for LDL-C Performed By: #### L 501.9310, L501.9985, L100.0500, L500.4100, L500.4050, L501.9520 ####[facility] [address] [place], [place], [id number] Cholesterol in VLDL [Mass/Vol] 12 mg/dL Normal 5-40 [facility] Comment on above: Order Comment: 111 Performed By: #### L 501.9310, L501.9985, L100.0500, L500.4100, L500.4050, L501.9520 ####[facility] [address] [place], [address] Triglyceride [Mass/Vol] 62 mg/dL Normal [facility] Comment on above: Order Comment: 111 Result Comment: The drugs N-Acetylcysteine and Metamizole may falselydepress this assay.Normal range: <150 mg/dLBorderline High: 150-199 mg/dLHigh: 200-499 mg/dLVery High: >500 mg/dL Performed By: #### L 501.9310, L501.9985, L100.0500, L500.4100, L500.4050, L501.9520 ####[facility] [address] [place], [place], [address] MCV (mean corpuscular volume ) determinationOrdered By: Vimal Angulo on 06-08-2025 MCV (RBC) [Entitic vol] 95.1 fL 81-99 [facility] Mean corpuscular hemoglobin (MCH) determinationOrdered By: Vimal Angulo on 06-08-2025 MCH (RBC) [Entitic mass] 30.6 pg 27.0-32.0 [facility] Mean corpuscular hemoglobin concentration (MCHC) determinationOrdered By: Vimal Angulo on 06-08-2025 MCHC (RBC) [Mass/Vol] 32.2 g/dL 32-36 [facility] Mean platelet volume determi nationOrdered By: Vimal Angulo on 06-08-2025 Platelet mean volume (Bld) [Entitic vol] 9.9 fL 6.2-12.0 [facility] Platelet countOrdered By: Jairon Angulo on 06-08-2025 Platelets (Bld) [#/Vol] 199 10*3/uL 150-450 [facility] Potassium measurement (mass/ volume)Ordered By: Vimal Angulo on 06-08-2025 Potassium (Unsp spec) [Mass/Vol] 3.6 mmol/L 3.3-5.1 [facility] RBC Auto (Bld) [#/Vol]Ordere d By: Vimal Angulo on 06-08-2025 RBC (Bld) [#/Vol] 3.27 10*6/uL Low 4.2-5.4 [facility] Screening total cholesterol/ high density lipoprotein (HDL) cholesterol ratioOrdered By: Vimal Angulo on 06-08-2025 Cholesterol.total/Cho lesterol in HDL [Mass ratio] 2.24 {ratio} [facility] Serum creatinine measurement (mass/volume)Ordered By: Vimal Angulo on 06-08-2025 Creatinine [Mass/Vol] 0.64 mg/dL Low 0.70-1.20 [facility] Serum globulin measurementOr dered By: Vimal Angulo on 06-08-2025 Globulin (S) [Mass/Vol] 2.7 g/dL 2.2-4.2 [facility] Serum glucose measurement (m ass/volume)Ordered By: Vimal Angulo on 06-08-2025 Glucose [Mass/Vol] 104 mg/dL High 70-99 [facility] Serum or plasma alanine woodall otransferase (ALT) measurementOrdered By: Vimal Angulo on 06-08-2025 ALT [Catalytic activity/Vol] 5 U/L <35 [facility] Serum or plasma albumin susy urement (mass/volume)Ordered By: Vimal Angulo on 06-08-2025 Albumin [Mass/Vol] 3.2 g/dL Low 3.4-4.8 [facility] Serum or plasma albumin/glob ulin mass ratioOrdered By: Vimal Angulo on 06-08-2025 Albumin/Globulin [Mass ratio] 1.2 {ratio} 0.9-2.4 [facility] Serum or plasma alkaline taisha sphatase measurementOrdered By: Vimal Angulo on 06-08-2025 ALP [Catalytic activity/Vol] 114 U/L High 35-104 [facility] Serum or plasma calcium susy urement (mass/volume)Ordered By: Vimal Angulo on 06-08-2025 Calcium [Mass/Vol] 9.2 mg/dL 7.6-11.0 [facility] Serum or plasma cholesterol in HDL measurement (mass/volume)Ordered By: Vimal Angulo on 06-08-2025 Cholesterol in HDL [Mass/Vol] 60 mg/dL >40 [facility] Comment on above: National Cholesterol Education Program (NCEP) guidelines:<40 mg/dL: Low HDL-cholesterol (major risk factor for CHD)>= 60 mg/dL: High HDL-cholesterol (negative risk factor for CHD)HDL-cholesterol is affected by a number of factors, e.g. smoking, exercise, hormones, sex and age. Serum or plasma cholesterol measurement (mass/volume)Ordered By: Vimal Angulo on 06-08-2025 Cholesterol [Mass/Vol] 135 mg/dL <201 [facility] Comment on above: Cholesterol level, D esirable <200 mg/dLBorderline high cholesterol 200-239 mg/dLHigh cholesterol >=240 mg/dLRecommendations of the NCEP Adult Treatment Panel for the following risk-cutoff thresholds for the [place] population. Serum or plasma urea nitroge n measurement (mass/volume)Ordered By: Vimal Angulo on 06-08-2025 Urea nitrogen [Mass/Vol] 17 mg/dL 4-19 [facility] Sodium levelOrdered By: Brooks Angulo on 06-08-2025 Sodium [Moles/Vol] 138 mmol/L 133-145 [facility] T4 Total, Thyroxinon 025 T4 [Mass/Vol] 6.9 ug/dL Normal 4.8-13.9 [facility] Comment on above: Order Comment: 111 Performed By: #### L 501.9310, L501.9985, L100.0500, L500.4100, L500.4050, L501.9520 ####[facility] [address] [place], [address] TSH DL <= 0.005 mIU/L QnOrde red By: Vimal Angulo on 06-08-2025 TSH Qn 1.760 uIU/mL 0.300-4.20 0 [facility] Thyroid Stim Hormone (TSH)on 06-08-2025 TSH 1.760 uIU/mL Normal 0.300-4.20 0 [facility] Comment on above: Order Comment: 111 Performed By: #### L 501.9310, L501.9985, L100.0500, L500.4100, L500.4050, L501.9520 ####[facility] [address] [place], [address] ThyroxineOrdered By: Vimal lockhart on 06-08-2025 T4 [Mass/Vol] 6.9 ug/dL 4.8-13.9 [facility] Total proteinOrdered By: Trent Angulo on 06-08-2025 Protein [Mass/Vol] 5.9 g/dL 5.9-8.4 [facility] Triglycerides measurementOrd ered By: Vimal Angulo on 06-08-2025 Triglyceride [Mass/Vol] 62 mg/dL <199 [facility] Comment on above: The drugs N-Acetylcy steine and Metamizole may falsely depress this assay. Normal range: <150 mg/dLBorderline High: 150-199 mg/dLHigh: 200-499 mg/dLVery High: >500 mg/dL White blood cell (WBC) count Ordered By: Vimal Angulo on 06-08-2025 WBC (Bld) [#/Vol] 5.1 10*3/uL 4.4-11.0 [facility] Basic Metabolic Profile (BMP )on 06-05-2025 BUN Normal 4-19 [facility] Comment on above: Result Comment: Canc elled via OM: Ordered/Entered in error Performed By: #### L 500.2500 ####[facility] [address] [place], [place], [id number] BUN/CRE Normal 10-20 [facility] Comment on above: Result Comment: Canc elled via OM: Ordered/Entered in error Performed By: #### L 500.2500 ####[facility] [address] [place], [place], [id number] Calcium Normal 7.6-11.0 [facility] Comment on above: Result Comment: Canc elled via OM: Ordered/Entered in error Performed By: #### L 500.2500 ####[facility] [address] [place], [address] CL Normal 98-108 [facility] Comment on above: Result Comment: Canc elled via OM: Ordered/Entered in error Performed By: #### L 500.2500 ####[facility] [address] [place], [address] CO2 Normal 21.0-32.0 [facility] Comment on above: Result Comment: Canc elled via OM: Ordered/Entered in error Performed By: #### L 500.2500 ####[facility] [address] [place], [address] CREAT,SERUM Normal 0.70-1.20 [facility] Comment on above: Result Comment: Canc elled via OM: Ordered/Entered in error Performed By: #### L 500.2500 ####[facility] [address] [place], [address] eGFR Normal >60 [facility] Comment on above: Result Comment: Canc elled via OM: Ordered/Entered in error Performed By: #### L 500.2500 ####[facility] [address] [place], [address] GAP Normal 5-15 [facility] Comment on above: Result Comment: Canc elled via OM: Ordered/Entered in error Performed By: #### L 500.2500 ####[facility] [address] [place], [address] GLU Normal 70-99 [facility] Comment on above: Result Comment: Canc elled via OM: Ordered/Entered in error Performed By: #### L 500.2500 ####[facility] [address] [place], [address] Potassium Normal 3.3-5.1 [facility] Comment on above: Result Comment: Canc elled via OM: Ordered/Entered in error Performed By: #### L 500.2500 ####[facility] [address] [place], [place], [address] Basic Metabolic Profile (BMP) Normal 133-145 [facility] Comment on above: Result Comment: Canc elled via OM: Ordered/Entered in error Performed By: #### L 500.2500 ####[facility] [address] [place], [place], [address] [employer] Decub and/or Erecton 06-04-2025 Abd Inc Decub and/or Erect Normal [facility] Absolute lymphocyte countOrd ered By: Eh Huddleston on 06-04-2025 Lymphocytes Auto (Unsp spec) [#/Vol] 1.26 10*3/uL 0.83-4.51 [facility] Absolute neutrophil countOrd ered By: Eh Huddleston on 06-04-2025 Neutrophils (Bld) [#/Vol] 4.0 10*3/uL 2.0-7.7 [facility] Anion gap in Serum or Plasma Ordered By: Eh Huddleston on 06-04-2025 Anion gap [Moles/Vol] 11 mmol/L 5-15 [facility] Automated lymphocyte count a s percentage of total leukocytesOrdered By: Eh Huddleston on 06-04-2025 Lymphocytes/100 WBC Auto (Unsp spec) 19.7 % 19-41 [facility] BUN/creatinine ratioOrdered By: Eh Huddleston on 06-04-2025 Urea nitrogen/Creatinine [Mass ratio] 33.2 mg/mg High 10-20 [facility] Basic Metabolic Profile (BMP )on 06-04-2025 BUN/CRE 33.2 RATIO High 08-16 [facility] Comment on above: Performed By: #### L 500.2500 ####[facility] [address] [place], [address] Calcium [Mass/Vol] 9.1 mg/dL Normal 7.6-11.0 [facility] Comment on above: Performed By: #### L 500.2500 ####[facility] [address] [place], [address] Chloride [Moles/Vol] 102 mmol/L Normal 98-108 [facility] Comment on above: Performed By: #### L 500.2500 ####[facility] [address] [place], [address] CO2 [Moles/Vol] 24.6 mmol/L Normal 21.0-32.0 [facility] Comment on above: Performed By: #### L 500.2500 ####[facility] [address] [place], [address] Creatinine [Mass/Vol] 0.68 mg/dL Low 0.70-1.20 [facility] Comment on above: Performed By: #### L 500.2500 ####[facility] [address] [place], [address] ECRCL 53.29 ml/min Normal 50-250 [facility] Comment on above: Performed By: #### L 500.2500 ####[facility] [address] [place], [address] GAP 11 Normal 5-15 [facility] Comment on above: Performed By: #### L 500.2500 ####[facility] [address] [place], [address] GFR/1.73 sq M.predicted among non-blacks MDRD (S/P/Bld) [Vol rate/Area] 85 mL/min/{1.73_m2} Normal >60 [facility] Comment on above: Result Comment: mL/m in/1.73m2 CKD-EPI Creatinine Equation (2020) Performed By: #### L 500.2500 ####[facility] [address] [place], [address] Glucose [Mass/Vol] 104 mg/dL High 70-99 [facility] Comment on above: Performed By: #### L 500.2500 ####[facility] [address] [place], [address] Potassium [Moles/Vol] 3.5 mmol/L Normal 3.3-5.1 [facility] Comment on above: Performed By: #### L 500.2500 ####[facility] [address] [place], [address] Sodium [Moles/Vol] 137 mmol/L Normal 133-145 [facility] Comment on above: Performed By: #### L 500.2500 ####[facility] [address] [place], [address] Urea nitrogen [Mass/Vol] 23 mg/dL High 4-19 [facility] Comment on above: Performed By: #### L 500.2500 ####[facility] [address] [place], [address] Basophil percentageOrdered B y: Eh Huddleston on 06-04-2025 Basophils/100 WBC (Bld) 0.8 % 0-1 [facility] CBC W/Diff, Automatedon Absolute Lymph 1.26 X10 3/uL Normal 0.83-4.51 [facility] Comment on above: Performed By: #### L 100.0100 ####[facility] [address] [place], [address] Absolute Neut 4.0 X10 3/uL Normal 2.0-7.7 [facility] Comment on above: Performed By: #### L 100.0100 ####[facility] [address] [place], [address] Basophils/100 WBC (Bld) 0.8 % Normal 0-1 [facility] Comment on above: Performed By: #### L 100.0100 ####[facility] [address] [place], [address] Eosinophils/100 WBC (Bld) 5.1 % High 0-5 [facility] Comment on above: Performed By: #### L 100.0100 ####[facility] [address] [place], [address] Erythrocyte distribution width (RBC) [Ratio] 15.4 % High 11.6-14.6 [facility] Comment on above: Performed By: #### L 100.0100 ####[facility] [address] [place], [address] Hematocrit (Bld) [Volume fraction] 29.4 % Low 37-47 [facility] Comment on above: Performed By: #### L 100.0100 ####[facility] [address] [place], [address] Hemoglobin (Bld) [Mass/Vol] 9.3 g/dL Low 12.0-15.0 [facility] Comment on above: Performed By: #### L 100.0100 ####[facility] [address] [place], [address] IG% 0.300 Normal 0.0-0.9 [facility] Comment on above: Result Comment: IG% - Immature Granulocytes (promyelocytes, myelocytes andmetamyelocytes) > 1% indicates that a LEFT SHIFT is Present. Performed By: #### L 100.0100 ####[facility] [address] [place], [address] Lymphocytes/100 WBC (Bld) 19.7 % Normal 19-41 [facility] Comment on above: Performed By: #### L 100.0100 ####[facility] [address] [place], [address] MCH (RBC) [Entitic mass] 30.4 pg Normal 27.0-32.0 [facility] Comment on above: Performed By: #### L 100.0100 ####[facility] [address] [place], [address] MCHC (RBC) [Mass/Vol] 31.6 g/dL Low 32-36 [facility] Comment on above: Performed By: #### L 100.0100 ####[facility] [address] [place], [address] MCV (RBC) [Entitic vol] 96.1 fL Normal 81-99 [facility] Comment on above: Performed By: #### L 100.0100 ####[facility] [address] [place], [address] Monocytes/100 WBC (Bld) 11.2 % High 0-10 [facility] Comment on above: Performed By: #### L 100.0100 ####[facility] [address] [place], [address] Neutrophils/100 WBC (Bld) 62.9 % Normal 47-70 [facility] Comment on above: Performed By: #### L 100.0100 ####[facility] [address] [place], [address] Nucleated RBC (Bld) [#/Vol] 0 10*3/uL Normal 0-5 [facility] Comment on above: Performed By: #### L 100.0100 ####[facility] [address] [place], [address] Platelet mean volume (Bld) [Entitic vol] 9.9 fL Normal 6.2-12.0 [facility] Comment on above: Performed By: #### L 100.0100 ####[facility] [address] [place], [address] Platelets (Bld) [#/Vol] 214 10*3/uL Normal 150-450 [facility] Comment on above: Performed By: #### L 100.0100 ####[facility] [address] [place], [address] RBC (Bld) [#/Vol] 3.06 10*6/uL Low 4.2-5.4 [facility] Comment on above: Performed By: #### L 100.0100 ####[facility] [address] [place], [address] RDW SD 54.1 fl High 35.1-43.9 [facility] Comment on above: Performed By: #### L 100.0100 ####[facility] [address] [place], [address] WBC (Bld) [#/Vol] 6.4 10*3/uL Normal 4.4-11.0 [facility] Comment on above: Performed By: #### L 100.0100 ####[facility] [address] [place], [address] CDIFF (PCR)on 06-04-2025 CDIFF Normal [facility] Comment on above: Performed By: #### M 100.6795, M100.6796, M100.637 ####[facility] [address] [place], [address] Carbon dioxide, total [Moles /volume] in Central venous bloodOrdered By: Eh Huddleston on 06-04-2025 CO2 [Moles/Vol] 24.6 mmol/L 21.0-32.0 [facility] Chloride assayOrdered By: Collin Huddleston on 06-04-2025 Chloride [Moles/Vol] 102 mmol/L 98-108 [facility] Clostridium Diff Toxin/Agon 06-04-2025 CDIFF (EIA) Normal [facility] Comment on above: Performed By: #### M 100.6795, M100.6796, M100.637 ####[facility] [address] [place], [address] Clostridium difficile detect ion by polymerase chain reactionOrdered By: Eh Huddleston on 06-04-2025 C. difficile DNA ZOEY+probe Ql (Unsp spec) [facility] ENTERIC PATHOGEN PANEL STOOL on 06-04-2025 EP PANEL Normal [facility] Comment on above: Performed By: #### M 100.2554, [id number], M100.637 ####[facility] [address] [place], [address] Eosinophil percentageOrdered By: Eh Huddleston on 06-04-2025 Eosinophils/100 WBC (Bld) 5.1 % High 0-5 [facility] Erythrocyte distribution wid th ratioOrdered By: [facility] Erythrocyte distribution width (RBC) [Ratio] 15.4 % High 11.6-14.6 [facility] Erythrocyte distribution wid th standard deviationOrdered By: [facility] on 06-04-2025 Erythrocyte distribution width (RBC) [Ratio] 54.1 fl High 35.1-43.9 [facility] Glomerular filtration rate ( GFR) estimation/1.73 sq m using serum, plasma, or whole bOrdered By: Eh Huddleston on 06-04-2025 GFR/1.73 sq M.predicted among non-blacks MDRD (S/P/Bld) [Vol rate/Area] 85 mL/min/{1.73_m2} >60 [facility] Comment on above: mL/min/1.73m2 CKD-EP I Creatinine Equation (2020) Hematocrit Auto (Bld) [Volum e fraction]Ordered By: Eh Huddleston on 06-04-2025 Hematocrit (Bld) [Volume fraction] 29.4 % Low 37-47 [facility] Hemoglobin measurementOrdere d By: Eh Huddleston on 06-04-2025 Hemoglobin (Bld) [Mass/Vol] 9.3 g/dL Low 12.0-15.0 [facility] Immature granulocytes/100 WB C Auto (Bld)Ordered By: Eh Huddleston 06-04-2025 Immature granulocytes/100 WBC (Bld) 0.300 % 0.0-0.9 [facility] Comment on above: IG% - Immature Granu locytes (promyelocytes, myelocytes and metamyelocytes) > 1% indicates that a LEFT SHIFT is Present. MCV (mean corpuscular volume ) determinationOrdered By: Eh Huddleston on 06-04-2025 MCV (RBC) [Entitic vol] 96.1 fL 81-99 [facility] Mean corpuscular hemoglobin (MCH) determinationOrdered By: Eh Huddleston on 06-04-2025 MCH (RBC) [Entitic mass] 30.4 pg 27.0-32.0 [facility] Mean corpuscular hemoglobin concentration (MCHC) determinationOrdered By: Eh Huddleston on 06-04-2025 MCHC (RBC) [Mass/Vol] 31.6 g/dL Low 32-36 [facility] Mean platelet volume determi nationOrdered By: Eh Huddleston on 06-04-2025 Platelet mean volume (Bld) [Entitic vol] 9.9 fL 6.2-12.0 [facility] Monocyte percentageOrdered B y: Eh Huddleston on 06-04-2025 Monocytes/100 WBC (Bld) 11.2 % High 0-10 [facility] Neutrophil percentageOrdered By: Eh Huddleston on 06-04-2025 Neutrophils/100 WBC (Bld) 62.9 % 47-70 [facility] Nucleated red blood cell per centageOrdered By: Eh Huddleston 06-04-2025 Nucleated RBC/100 WBC (Bld) [Ratio] 0 % 0-5 [facility] Platelet countOrdered By: Collin Huddleston on 06-04-2025 Platelets (Bld) [#/Vol] 214 10*3/uL 150-450 [facility] Potassium measurement (mass/ volume)Ordered By: Eh Huddleston 06-04-2025 Potassium (Unsp spec) [Mass/Vol] 3.5 mmol/L 3.3-5.1 [facility] RBC Auto (Bld) [#/Vol]Ordere d By: Eh Huddleston 06-04-2025 RBC (Bld) [#/Vol] 3.06 10*6/uL Low 4.2-5.4 [facility] Serum creatinine measurement (mass/volume)Ordered By: Eh Huddleston on 06-04-2025 Creatinine [Mass/Vol] 0.68 mg/dL Low 0.70-1.20 [facility] Serum glucose measurement (m ass/volume)Ordered By: Eh Huddleston on 06-04-2025 Glucose [Mass/Vol] 104 mg/dL High 70-99 [facility] Serum or plasma calcium susy urement (mass/volume)Ordered By: Eh Huddleston on 06-04-2025 Calcium [Mass/Vol] 9.1 mg/dL 7.6-11.0 [facility] Serum or plasma urea nitroge n measurement (mass/volume)Ordered By: Eh Huddleston on 06-04-2025 Urea nitrogen [Mass/Vol] 23 mg/dL High 4-19 [facility] Sodium levelOrdered By: Eh Huddleston on 06-04-2025 Sodium [Moles/Vol] 137 mmol/L 133-145 [facility] Stool Clostridium difficile detectionOrdered By: Eh Huddleston on 06-04-2025 C. difficile Ql (Stl) [facility] White blood cell (WBC) count Ordered By: Eh Huddleston on 06-04-2025 WBC (Bld) [#/Vol] 6.4 10*3/uL 4.4-11.0 [facility] Venous duplex ultrasound rep ortOrdered By: Basim Murillo on 06-02-2025 US Vein [facility] [address] [place] [address] Venous Duplex US, Unilateral 06/01/25 1051 MR#: [id number] Acct: [id number] Name: GOGO WARE p #:[id number] : 1940 85 From: Basim Millard Attending Dr: Dr. Eh Huddleston MD Status: REG CLI Ordering Dr: Eh Huddleston MD Date: 03/21 Location: [facility] Sex: F C Admitted: Reason For Study Reason For Study: LLE PAIN RIGHT LEFT CFV is compressible, spontaneous, phasic, competent GSV is normal. and demonstrates normal augmentation. CFV is compressible, spontaneous, phasic, competent, Procedure and demonstrates normal augmentation. This is a venous duplex using B-mode, color flow and FV is compressible, spontaneous, phasic, competent spectral Doppler. and demonstrates normal augmentation. Exam performed portable in patient room. POP V is compressible, spontaneous, phasic, competent The study was technically difficult. and demonstrates normal augmentation. A preliminary report was called and/or faxed to TCU. T/P Trunk is compressible. PTV is compressible. LT PerV is compressible. VL/Venous Duplex US, Unilateral Interpretation Summary Deep veins of the left lower extremity are patent and compressible segmentally. There is no evidence of left lower extremity deep vein thrombosis. The left great saphenous vein appears patent andcompressible segmentally. Ordering Physician: Eh Huddleston Chi Referring Physician: Eh Huddleston Chi Performed By: Berta Walls, KRISTEN, RVT 06/02/25 0815 Date _ Basim Murillo MD CC: Dr. Eh Huddleston MD ~ Date Dictated: 06/01/25 1051 Date Transcribed: 06/02/25814 General Studies Program Chair: Signed [facility] Work Phone: Venous Duplex US, Unilateral on 06-01-2025 Venous Duplex US, Unilateral Normal [facility] Urine Cultureon 05-30-2025 URC Normal [facility] Comment on above: Performed By: #### M 100.2200, L400.0001 ####[facility] [address] [place], [address] Basic Metabolic Profile (BMP )on 05-29-2025 BUN Normal 4-19 [facility] Comment on above: Result Comment: Canc elled via OM: Ordered/Entered in error Performed By: #### L 500.2500 ####[facility] [address] [place], [address] BUN/CRE Normal 10-20 [facility] Comment on above: Result Comment: Canc elled via OM: Ordered/Entered in error Performed By: #### L 500.2500 ####[facility] [address] [place], [address] Calcium Normal 7.6-11.0 [facility] Comment on above: Result Comment: Canc elled via OM: Ordered/Entered in error Performed By: #### L 500.2500 ####[facility] [address] [place], [address] CL Normal 98-108 [facility] Comment on above: Result Comment: Canc elled via OM: Ordered/Entered in error Performed By: #### L 500.2500 ####[facility] [address] [place], [address] CO2 Normal 21.0-32.0 [facility] Comment on above: Result Comment: Canc elled via OM: Ordered/Entered in error Performed By: #### L 500.2500 ####[facility] [address] [place], [address] CREAT,SERUM Normal 0.70-1.20 [facility] Comment on above: Result Comment: Canc elled via OM: Ordered/Entered in error Performed By: #### L 500.2500 ####[facility] [address] [place], [address] eGFR Normal >60 [facility] Comment on above: Result Comment: Canc elled via OM: Ordered/Entered in error Performed By: #### L 500.2500 ####[facility] [address] [place], [address] GAP Normal 5-15 [facility] Comment on above: Result Comment: Canc elled via OM: Ordered/Entered in error Performed By: #### L 500.2500 ####[facility] [address] [place], [address] GLU Normal 70-99 [facility] Comment on above: Result Comment: Canc elled via OM: Ordered/Entered in error Performed By: #### L 500.2500 ####[facility] [address] [place], [address] Potassium Normal 3.3-5.1 [facility] Comment on above: Result Comment: Canc elled via OM: Ordered/Entered in error Performed By: #### L 500.2500 ####[facility] [address] [place], [address] Basic Metabolic Profile (BMP) Normal 133-145 [facility] Comment on above: Result Comment: Canc elled via OM: Ordered/Entered in error Performed By: #### L 500.2500 ####[facility] [address] [place], [address] Basic Metabolic Profile (BMP )on 05-28-2025 BUN/CRE 30.6 RATIO High 10-20 [facility] Comment on above: Performed By: #### L 500.2500 ####[facility] [address] [place], [address] Calcium [Mass/Vol] 8.6 mg/dL Normal 7.6-11.0 [facility] Comment on above: Performed By: #### L 500.2500 ####[facility] [address] [place], [address] Chloride [Moles/Vol] 102 mmol/L Normal 98-108 [facility] Comment on above: Performed By: #### L 500.2500 ####[facility] [address] [place], [address] CO2 [Moles/Vol] 25.9 mmol/L Normal 21.0-32.0 [facility] Comment on above: Performed By: #### L 500.2500 ####[facility] [address] [place], [address] Creatinine [Mass/Vol] 0.73 mg/dL Normal 0.70-1.20 [facility] Comment on above: Performed By: #### L 500.2500 ####[facility] [address] [place], [address] ECRCL 52.76 ml/min Normal 50-250 [facility] Comment on above: Performed By: #### L 500.2500 ####[facility] [address] [place], [address] GAP 10 Normal 5-15 [facility] Comment on above: Performed By: #### L 500.2500 ####[facility] [address] [place], [address] GFR/1.73 sq M.predicted among non-blacks MDRD (S/P/Bld) [Vol rate/Area] 81 mL/min/{1.73_m2} Normal >60 [facility] Comment on above: Result Comment: mL/m in/1.73m2 CKD-EPI Creatinine Equation (2020) Performed By: #### L 500.2500 ####[facility] [address] [place], [address] Glucose [Mass/Vol] 108 mg/dL High 70-99 [facility] Comment on above: Performed By: #### L 500.2500 ####[facility] [address] [place], [address] Potassium [Moles/Vol] 3.9 mmol/L Normal 3.3-5.1 [facility] Comment on above: Result Comment: Hemo lysis present, Results??could be affected.?? Performed By: #### L 500.2500 ####[facility] [address] [place], [address] Sodium [Moles/Vol] 137 mmol/L Normal 133-145 [facility] Comment on above: Performed By: #### L 500.2500 ####[facility] [address] [place], [address] Urea nitrogen [Mass/Vol] 22 mg/dL High 4-19 [facility] Comment on above: Performed By: #### L 500.2500 ####[facility] [address] [place], [address] CBC W/Diff, Automatedon 08-0 1-5 Absolute Lymph 1.45 X10 3/uL Normal 0.83-4.51 [facility] Comment on above: Performed By: #### L 100.0100 ####[facility] [address] [place], [address] Absolute Neut 3.5 X10 3/uL Normal 2.0-7.7 [facility] Comment on above: Performed By: #### L 100.0100 ####[facility] [address] [place], [address] Basophils/100 WBC (Bld) 0.7 % Normal 0-1 [facility] Comment on above: Performed By: #### L 100.0100 ####[facility] [address] [place], [address] Eosinophils/100 WBC (Bld) 3.7 % Normal 0-5 [facility] Comment on above: Performed By: #### L 100.0100 ####[facility] [address] [place], [address] Erythrocyte distribution width (RBC) [Ratio] 15.5 % High 11.6-14.6 [facility] Comment on above: Performed By: #### L 100.0100 ####[facility] [address] [place], [address] Hematocrit (Bld) [Volume fraction] 26.8 % Low 37-47 [facility] Comment on above: Performed By: #### L 100.0100 ####[facility] [address] [place], [address] Hemoglobin (Bld) [Mass/Vol] 8.4 g/dL Low 12.0-15.0 [facility] Comment on above: Performed By: #### L 100.0100 ####[facility] [address] [place], [address] IG% 0.700 Normal 0.0-0.9 [facility] Comment on above: Result Comment: IG% - Immature Granulocytes (promyelocytes, myelocytes andmetamyelocytes) > 1% indicates that a LEFT SHIFT is Present. Performed By: #### L 100.0100 ####[facility] [address] [place], [address] Lymphocytes/100 WBC (Bld) 24.2 % Normal 19-41 [facility] Comment on above: Performed By: #### L 100.0100 ####[facility] [address] [place], [address] MCH (RBC) [Entitic mass] 30.1 pg Normal 27.0-32.0 [facility] Comment on above: Performed By: #### L 100.0100 ####[facility] [address] [place], [address] MCHC (RBC) [Mass/Vol] 31.3 g/dL Low 32-36 [facility] Comment on above: Performed By: #### L 100.0100 ####[facility] [address] [place], [address] MCV (RBC) [Entitic vol] 96.1 fL Normal 81-99 [facility] Comment on above: Performed By: #### L 100.0100 ####[facility] [address] [place], [address] Monocytes/100 WBC (Bld) 12.4 % High 0-10 [facility] Comment on above: Performed By: #### L 100.0100 ####[facility] [address] [place], [address] Neutrophils/100 WBC (Bld) 58.3 % Normal 47-70 [facility] Comment on above: Performed By: #### L 100.0100 ####[facility] [address] [place], [address] Nucleated RBC (Bld) [#/Vol] 0 10*3/uL Normal 0-5 [facility] Comment on above: Performed By: #### L 100.0100 ####[facility] [address] [place], [address] Platelet mean volume (Bld) [Entitic vol] 9.4 fL Normal 6.2-12.0 [facility] Comment on above: Performed By: #### L 100.0100 ####[facility] [address] [place], [address] Platelets (Bld) [#/Vol] 264 10*3/uL Normal 150-450 [facility] Comment on above: Performed By: #### L 100.0100 ####[facility] [address] [place], [address] RBC (Bld) [#/Vol] 2.79 10*6/uL Low 4.2-5.4 [facility] Comment on above: Performed By: #### L 100.0100 ####[facility] [address] [place], [address] RDW SD 53.9 fl High 35.1-43.9 [facility] Comment on above: Performed By: #### L 100.0100 ####[facility] [address] [place], [address] WBC (Bld) [#/Vol] 6.0 10*3/uL Normal 4.4-11.0 [facility] Comment on above: Performed By: #### L 100.0100 ####[facility] [address] [place], [address] Bilirubin Test strip Ql (U)O rdered By: Eh Huddleston on 05-25-2025 Bilirubin Ql (U) Negative Negative [facility] Ketones Test strip Ql (U)Ord ered By: Eh Huddleston on 05-25-2025 Ketones Ql (U) Negative Negative [facility] Microscopic analysis of urin e for red blood cells (RBC)Ordered By: Eh Huddleston on 05-25-2025 Microscopic analysis of urine for red blood cells (RBC) 0-5 SEEN /hpf 0-5 [facility] Mucus LM Ql (Urine sed)Order ed By: Eh Huddleston on 05-25-2025 Mucus Ql (Urine sed) 0 SEEN /hpf [facility] Nitrite Test strip Ql (U)Ord ered By: Eh Huddleston on 05-25-2025 Nitrite Ql (U) Positive High Negative [facility] Protein Test strip Ql (U)Ord ered By: Eh Huddleston on 05-25-2025 Protein Ql (U) 15 mg/dl High Negative [facility] Squamous epithelial cells de tection in urine sediment by light microscopyOrdered By: Eh Huddleston on 05-25-2025 Epithelial cells.squamous LM Ql (Urine sed) 0-5 SEEN /hpf 5-10 [facility] Urinalysis, Completeon 05-25 RBC 0-5 SEEN Normal 0-5 [facility] Comment on above: Order Comment: LORNA TER SPECIMEN Performed By: #### M 100.2200, L400.0001 ####[facility] [address] [place], [address] BACTERIA 3+ /hpf Normal None Seen [facility] Comment on above: Order Comment: LORNA TER SPECIMEN Performed By: #### M 100.2200, L400.0001 ####[facility] [address] [place], [address] EPI,SQUAMOUS 0-5 SEEN Normal 5-10 [facility] Comment on above: Order Comment: LORNA TER SPECIMEN Performed By: #### M 100.2200, L400.0001 ####[facility] [address] [place], [address] WBC 10-25 SEEN Normal 0-5 [facility] Comment on above: Order Comment: LORNA TER SPECIMEN Performed By: #### M 100.2200, L400.0001 ####[facility] [address] [place], [address] Mucus Ql (Urine sed) 0 SEEN Normal [facility] Comment on above: Order Comment: LORNA TER SPECIMEN Performed By: #### M 100.2200, L400.0001 ####[facility] [address] [place], [address] Urine clarityOrdered By: Eh Huddleston on 05-25-2025 Clarity (U) Sl. Cloudy Clear [facility] Urine color determinationOrd ered By: Eh Huddleston on 05-25-2025 Color (U) Straw Yellow [facility] Urine cultureOrdered By: Eh Huddleston on 05-25-2025 Bacteria identified Cx Nom (U) Escherichia coli Abnormal [facility] Bacteria identified Cx Nom (U) Klebsiella pneumoniae sp pneum Abnormal [facility] Bacteria identified Cx Nom (U) Pseudomonas aeruginosa Abnormal [facility] Urine glucose detectionOrder ed By: Eh Huddleston on 05-25-2025 Glucose Ql (U) Normal mg/dl Normal [facility] Urine leukocyte esterase det ection by dipstickOrdered By: Eh Huddleston on 05-25-2025 Leukocyte esterase Test strip Ql (U) 500 /ul High Negative [facility] Urine pHOrdered By: Eh Huddleston on 05-25-2025 pH (U) 7.0 [pH] 5.0 - 8.0 [facility] Urine sediment bacteria coun t by microscopy (number/high power field)Ordered By: Eh Huddleston on 05-25-2025 Bacteria LM.HPF (Urine sed) [#/Area] 3 /[HPF] None Seen [facility] Urine specific gravity measu rementOrdered By: Eh Huddleston on 05-25-2025 Specific gravity (U) [Rel density] 1.005 1.002-1.03 0 [facility] Urine urobilinogen measureme ntOrdered By: hE Flaquito on 05-25-2025 Urobilinogen Ql (U) Normal mg/dl Normal [facility] White blood cell countOrdere d By: Eh Ashbyok on 05-25-2025 White blood cell count 10-25 SEEN /hpf 0-5 [facility] HH, Hemoglobin AND Hematocri ton 05-23-2025 Hematocrit (Bld) [Volume fraction] 26.1 % Low 37-47 [facility] Comment on above: Performed By: #### L 100.0600 ####[facility] [address] [facility] [address] Hemoglobin (Bld) [Mass/Vol] 8.3 g/dL Low 12.0-15.0 [facility] Comment on above: Performed By: #### L 100.0600 ####[facility] [address] [place], [address] Hematocrit Auto (Bld) [Volum e fraction]Ordered By: Eh Ashbyok on 05-23-2025 Hematocrit (Bld) [Volume fraction] 26.1 % Low 37-47 [facility] Hemoglobin measurementOrdere d By: Eh Flaquito on 05-23-2025 Hemoglobin (Bld) [Mass/Vol] 8.3 g/dL Low 12.0-15.0 [facility] Basic Metabolic Profile (BMP )on 05-22-2025 BUN Normal 4-19 [facility] Comment on above: Result Comment: Canc elled via OM: Ordered/Entered in error Performed By: #### L 500.2500 ####[facility] [address] [facility] [address] BUN/CRE Normal 10-20 [facility] Comment on above: Result Comment: Canc elled via OM: Ordered/Entered in error Performed By: #### L 500.2500 ####[facility] [address] [place], [address] Calcium Normal 7.6-11.0 [facility] Comment on above: Result Comment: Canc elled via OM: Ordered/Entered in error Performed By: #### L 500.2500 ####[facility] [address] [place], [address] CL Normal 98-108 [facility] Comment on above: Result Comment: Canc elled via OM: Ordered/Entered in error Performed By: #### L 500.2500 ####[facility] [address] [place], [address] CO2 Normal 21.0-32.0 [facility] Comment on above: Result Comment: Canc elled via OM: Ordered/Entered in error Performed By: #### L 500.2500 ####[facility] [address] [place], [address] CREAT,SERUM Normal 0.70-1.20 [facility] Comment on above: Result Comment: Canc elled via OM: Ordered/Entered in error Performed By: #### L 500.2500 ####[facility] [address] [place], [address] eGFR Normal >60 [facility] Comment on above: Result Comment: Canc elled via OM: Ordered/Entered in error Performed By: #### L 500.2500 ####[facility] [address] [place], [address] GAP Normal 5-15 [facility] Comment on above: Result Comment: Canc elled via OM: Ordered/Entered in error Performed By: #### L 500.2500 ####[facility] [address] [place], [address] GLU Normal 70-99 [facility] Comment on above: Result Comment: Canc elled via OM: Ordered/Entered in error Performed By: #### L 500.2500 ####[facility] [address] [place], [address] Potassium Normal 3.3-5.1 [facility] Comment on above: Result Comment: Canc elled via OM: Ordered/Entered in error Performed By: #### L 500.2500 ####[facility] [address] [place], [address] Basic Metabolic Profile (BMP) Normal 133-145 [facility] Comment on above: Result Comment: Canc elled via OM: Ordered/Entered in error Performed By: #### L 500.2500 ####[facility] [address] [place], [address] Absolute lymphocyte countOrd ered By: Eh Huddleston on 05-21-2025 Lymphocytes Auto (Unsp spec) [#/Vol] 1.60 10*3/uL 0.83-4.51 [facility] Absolute neutrophil countOrd ered By: Eh Huddleston on 05-21-2025 Neutrophils (Bld) [#/Vol] 5.3 10*3/uL 2.0-7.7 [facility] Anion gap in Serum or Plasma Ordered By: Eh Huddleston on 05-21-2025 Anion gap [Moles/Vol] 8 mmol/L 5-15 [facility] Automated lymphocyte count a s percentage of total leukocytesOrdered By: Eh Huddleston on 05-21-2025 Lymphocytes/100 WBC Auto (Unsp spec) 20.3 % 19-41 [facility] BUN/creatinine ratioOrdered By: Eh Huddleston on 05-21-2025 Urea nitrogen/Creatinine [Mass ratio] 37.6 mg/mg High 10-20 [facility] Basic Metabolic Profile (BMP )on 05-21-2025 BUN/CRE 37.6 RATIO High - [facility] Comment on above: Performed By: #### L 500.2500 ####[facility] [address] [place], [address] Calcium [Mass/Vol] 8.4 mg/dL Normal 7.6-11.0 [facility] Comment on above: Performed By: #### L 500.2500 ####[facility] [address] [place], [address] Chloride [Moles/Vol] 105 mmol/L Normal 98-108 [facility] Comment on above: Performed By: #### L 500.2500 ####[facility] [address] [place], [address] CO2 [Moles/Vol] 25.4 mmol/L Normal 21.0-32.0 [facility] Comment on above: Performed By: #### L 500.2500 ####[facility] [address] [place], [address] Creatinine [Mass/Vol] 0.64 mg/dL Low 0.70-1.20 [facility] Comment on above: Performed By: #### L 500.2500 ####[facility] [address] [place], [address] ECRCL 53.64 ml/min Normal 50-250 [facility] Comment on above: Performed By: #### L 500.2500 ####[facility] [address] [place], [address] GAP 8 Normal 5-15 [facility] Comment on above: Performed By: #### L 500.2500 ####[facility] [address] [place], [address] GFR/1.73 sq M.predicted among non-blacks MDRD (S/P/Bld) [Vol rate/Area] 86 mL/min/{1.73_m2} Normal >60 [facility] Comment on above: Result Comment: mL/m in/1.73m2 CKD-EPI Creatinine Equation (2020) Performed By: #### L 500.2500 ####[facility] [address] [place], [address] Glucose [Mass/Vol] 108 mg/dL High 70-99 [facility] Comment on above: Performed By: #### L 500.2500 ####[facility] [address] [place], [address] Potassium [Moles/Vol] 4.0 mmol/L Normal 3.3-5.1 [facility] Comment on above: Result Comment: Hemo lysis present, Results??could be affected.?? Performed By: #### L 500.2500 ####[facility] [address] [place], [address] Sodium [Moles/Vol] 138 mmol/L Normal 133-145 [facility] Comment on above: Performed By: #### L 500.2500 ####[facility] [address] [place], [address] Urea nitrogen [Mass/Vol] 24 mg/dL High 4-19 [facility] Comment on above: Performed By: #### L 500.2500 ####[facility] [address] [place], [address] Basophil percentageOrdered B y: Eh Huddleston on 05-21-2025 Basophils/100 WBC (Bld) 0.3 % 0-1 [facility] CBC W/Diff, Automatedon 04-28 Absolute Lymph 1.60 X10 3/uL Normal 0.83-4.51 [facility] Comment on above: Performed By: #### L 100.0100 ####[facility] [address] [place], [address] Absolute Neut 5.3 X10 3/uL Normal 2.0-7.7 [facility] Comment on above: Performed By: #### L 100.0100 ####[facility] [address] [place], [address] Basophils/100 WBC (Bld) 0.3 % Normal 0-1 [facility] Comment on above: Performed By: #### L 100.0100 ####[facility] [address] [place], [address] Eosinophils/100 WBC (Bld) 2.0 % Normal 0-5 [facility] Comment on above: Performed By: #### L 100.0100 ####[facility] [address] [place], [address] Erythrocyte distribution width (RBC) [Ratio] 15.2 % High 11.6-14.6 [facility] Comment on above: Performed By: #### L 100.0100 ####[facility] [address] [place], [address] Hematocrit (Bld) [Volume fraction] 25.0 % Low 37-47 [facility] Comment on above: Performed By: #### L 100.0100 ####[facility] [address] [place], [address] Hemoglobin (Bld) [Mass/Vol] 8.2 g/dL Low 12.0-15.0 [facility] Comment on above: Performed By: #### L 100.0100 ####[facility] [address] [place], [address] IG% 0.600 Normal 0.0-0.9 [facility] Comment on above: Result Comment: IG% - Immature Granulocytes (promyelocytes, myelocytes andmetamyelocytes) > 1% indicates that a LEFT SHIFT is Present. Performed By: #### L 100.0100 ####[facility] [address] [place], [address] Lymphocytes/100 WBC (Bld) 20.3 % Normal 19-41 [facility] Comment on above: Performed By: #### L 100.0100 ####[facility] [address] [place], [address] MCH (RBC) [Entitic mass] 31.1 pg Normal 27.0-32.0 [facility] Comment on above: Performed By: #### L 100.0100 ####[facility] [address] [place], [address] MCHC (RBC) [Mass/Vol] 32.8 g/dL Normal 32-36 [facility] Comment on above: Performed By: #### L 100.0100 ####[facility] [address] [place], [address] MCV (RBC) [Entitic vol] 94.7 fL Normal 81-99 [facility] Comment on above: Performed By: #### L 100.0100 ####[facility] [address] [place], [address] Monocytes/100 WBC (Bld) 10.0 % Normal 0-10 [facility] Comment on above: Performed By: #### L 100.0100 ####[facility] [address] [place], [address] Neutrophils/100 WBC (Bld) 66.8 % Normal 47-70 [facility] Comment on above: Performed By: #### L 100.0100 ####[facility] [address] [place], [address] Nucleated RBC (Bld) [#/Vol] 0 10*3/uL Normal 0-5 [facility] Comment on above: Performed By: #### L 100.0100 ####[facility] [address] [place], [address] Platelet mean volume (Bld) [Entitic vol] 9.4 fL Normal 6.2-12.0 [facility] Comment on above: Performed By: #### L 100.0100 ####[facility] [address] [place], [address] Platelets (Bld) [#/Vol] 290 10*3/uL Normal 150-450 [facility] Comment on above: Performed By: #### L 100.0100 ####[facility] [address] [place], [address] RBC (Bld) [#/Vol] 2.64 10*6/uL Low 4.2-5.4 [facility] Comment on above: Performed By: #### L 100.0100 ####[facility] [address] [place], [address] RDW SD 52.7 fl High 35.1-43.9 [facility] Comment on above: Performed By: #### L 100.0100 ####[facility] [address] [place], [address] WBC (Bld) [#/Vol] 7.9 10*3/uL Normal 4.4-11.0 [facility] Comment on above: Performed By: #### L 100.0100 ####[facility] [address] [facility] [place], [address] Carbon dioxide, total [Moles /volume] in Central venous bloodOrdered By: Eh Huddleston on 05-21-2025 CO2 [Moles/Vol] 25.4 mmol/L 21.0-32.0 [facility] Chloride assayOrdered By: Collin Huddleston on 05-21-2025 Chloride [Moles/Vol] 105 mmol/L 98-108 [facility] Eosinophil percentageOrdered By: Eh Huddleston 05-21-2025 Eosinophils/100 WBC (Bld) 2.0 % 0-5 [facility] Erythrocyte distribution wid th ratioOrdered By: Eh Huddleston on 05-21-2025 Erythrocyte distribution width (RBC) [Ratio] 15.2 % High 11.6-14.6 [facility] Erythrocyte distribution wid th standard deviationOrdered By: Eh Huddleston on 05-21-2025 Erythrocyte distribution width (RBC) [Ratio] 52.7 fl High 35.1-43.9 [facility] Glomerular filtration rate ( GFR) estimation/1.73 sq m using serum, plasma, or whole bOrdered By: Eh Huddleston on 05-21-2025 GFR/1.73 sq M.predicted among non-blacks MDRD (S/P/Bld) [Vol rate/Area] 86 mL/min/{1.73_m2} >60 [facility] Comment on above: mL/min/1.73m2 CKD-EP I Creatinine Equation (2020) Immature granulocytes/100 WB C Auto (Bld)Ordered By: Eh Huddleston on 05-21-2025 Immature granulocytes/100 WBC (Bld) 0.600 % 0.0-0.9 [facility] Comment on above: IG% - Immature Granu locytes (promyelocytes, myelocytes and metamyelocytes) > 1% indicates that a LEFT SHIFT is Present. MCV (mean corpuscular volume ) determinationOrdered By: Eh Huddleston on 05-21-2025 MCV (RBC) [Entitic vol] 94.7 fL 81-99 [facility] Mean corpuscular hemoglobin (MCH) determinationOrdered By: Eh Huddleston on 05-21-2025 MCH (RBC) [Entitic mass] 31.1 pg 27.0-32.0 [facility] Mean corpuscular hemoglobin concentration (MCHC) determinationOrdered By: Eh Huddleston on 05-21-2025 MCHC (RBC) [Mass/Vol] 32.8 g/dL 32-36 [facility] Mean platelet volume determi nationOrdered By: Eh Huddleston on 05-21-2025 Platelet mean volume (Bld) [Entitic vol] 9.4 fL 6.2-12.0 [facility] Monocyte percentageOrdered B y: Eh Huddleston on 05-21-2025 Monocytes/100 WBC (Bld) 10.0 % 0-10 [facility] Neutrophil percentageOrdered By: Eh Huddleston on 05-21-2025 Neutrophils/100 WBC (Bld) 66.8 % 47-70 [facility] Nucleated red blood cell per centageOrdered By: Eh Huddleston on 05-21-2025 Nucleated RBC/100 WBC (Bld) [Ratio] 0 % 0-5 [facility] Platelet countOrdered By: Collin Huddleston on 05-21-2025 Platelets (Bld) [#/Vol] 290 10*3/uL 150-450 [facility] Potassium measurement (mass/ volume)Ordered By: Eh Huddleston on 05-21-2025 Potassium (Unsp spec) [Mass/Vol] 4.0 mmol/L 3.3-5.1 [facility] Comment on above: Hemolysis present, R esults could be affected. RBC Auto (Bld) [#/Vol]Ordere d By: Eh Huddleston on 05-21-2025 RBC (Bld) [#/Vol] 2.64 10*6/uL Low 4.2-5.4 [facility] Serum creatinine measurement (mass/volume)Ordered By: Eh Huddleston on 05-21-2025 Creatinine [Mass/Vol] 0.64 mg/dL Low 0.70-1.20 [facility] Serum glucose measurement (m ass/volume)Ordered By: Eh Huddleston on 05-21-2025 Glucose [Mass/Vol] 108 mg/dL High 70-99 [facility] Serum or plasma calcium susy urement (mass/volume)Ordered By: Eh Flaquito on 05-21-2025 Calcium [Mass/Vol] 8.4 mg/dL 7.6-11.0 [facility] Serum or plasma urea nitroge n measurement (mass/volume)Ordered By: Eh Flaquito on 05-21-2025 Urea nitrogen [Mass/Vol] 24 mg/dL High 4-19 [facility] Sodium levelOrdered By: Eh Huddleston on 05-21-2025 Sodium [Moles/Vol] 138 mmol/L 133-145 [facility] White blood cell (WBC) count Ordered By: Eh Flaquito on 05-21-2025 WBC (Bld) [#/Vol] 7.9 10*3/uL 4.4-11.0 [facility] HH, Hemoglobin AND Hematocri ton 05-19-2025 Hematocrit (Bld) [Volume fraction] 25.4 % Low 37-47 [facility] Comment on above: Performed By: #### L 100.0600 ####[facility] [address] [place], [place], [address] Hemoglobin (Bld) [Mass/Vol] 8.1 g/dL Low 12.0-15.0 [facility] Comment on above: Performed By: #### L 100.0600 ####[facility] [address] [place], [address] HH, Hemoglobin AND Hematocri ton 05-18-2025 Hematocrit (Bld) [Volume fraction] 26.3 % Low 37-47 [facility] Comment on above: Performed By: #### L 100.0600 ####[facility] [address] [place], [address] Hemoglobin (Bld) [Mass/Vol] 8.4 g/dL Low 12.0-15.0 [facility] Comment on above: Performed By: #### L 100.0600 ####[facility] [address] [place], [address] Stool Occult Blood iFOBon STOB Negative Normal [facility] Comment on above: Performed By: #### M 100.7900 ####[facility] [address] [place], [address] Stool gastrointestinal hemog lobin detection by immunologic methodOrdered By: Eh Huddleston on 05-18-2025 Lower GI hemoglobin IA Ql (Stl) [facility] Culture, Blood (WB)on 2024 CUB No growth in 5 days. Normal [facility] Comment on above: Performed By: #### M 200.1000 ####[facility] [address] [place], [address] HH, Hemoglobin AND Hematocri ton 05-16-2025 Hematocrit (Bld) [Volume fraction] 26.2 % Low [address] Comment on above: Performed By: #### L 100.0600 ####[facility] [address] [place], [address] Hemoglobin (Bld) [Mass/Vol] 8.5 g/dL Low 12.0-15.0 [facility] Comment on above: Performed By: #### L 100.0600 ####[facility] [address] [place], [address] Basic Metabolic Profile (BMP )on 05-15-2025 BUN/CRE 37.4 RATIO High 10-20 [facility] Comment on above: Performed By: #### L 500.2500, L100.0100 ####[facility] [address] [place], [address] Calcium [Mass/Vol] 8.3 mg/dL Normal 7.6-11.0 [facility] Comment on above: Performed By: #### L 500.2500, L100.0100 ####[facility] [address] [place], [address] Chloride [Moles/Vol] 105 mmol/L Normal 98-108 [facility] Comment on above: Performed By: #### L 500.2500, L100.0100 ####[facility] [address] [place], [address] CO2 [Moles/Vol] 22.8 mmol/L Normal 21.0-32.0 [facility] Comment on above: Performed By: #### L 500.2500, L100.0100 ####[facility] [address] [place], [address] Creatinine [Mass/Vol] 0.69 mg/dL Low 0.70-1.20 [facility] Comment on above: Performed By: #### L 500.2500, L100.0100 ####[facility] [address] [place], [address] ECRCL 53.49 ml/min Normal 50-250 [facility] Comment on above: Performed By: #### L 500.2500, L100.0100 ####[facility] [address] [place], [address] GAP 8 Normal 5-15 [facility] Comment on above: Performed By: #### L 500.2500, L100.0100 ####[facility] [address] [place], [address] GFR/1.73 sq M.predicted among non-blacks MDRD (S/P/Bld) [Vol rate/Area] 84 mL/min/{1.73_m2} Normal >60 [facility] Comment on above: Result Comment: mL/m in/1.73m2 CKD-EPI Creatinine Equation (2020) Performed By: #### L 500.2500, L100.0100 ####[facility] [address] [place], [address] Glucose [Mass/Vol] 116 mg/dL High 70-99 [facility] Comment on above: Performed By: #### L 500.2500, L100.0100 ####[facility] [address] [place], [address] Potassium [Moles/Vol] 4.1 mmol/L Normal 3.3-5.1 [facility] Comment on above: Performed By: #### L 500.2500, L100.0100 ####[facility] [address] [place], [address] Sodium [Moles/Vol] 136 mmol/L Normal 133-145 [facility] Comment on above: Performed By: #### L 500.2500, L100.0100 ####[facility] [address] [place], [address] Urea nitrogen [Mass/Vol] 26 mg/dL High 4-19 [facility] Comment on above: Performed By: #### L 500.2500, L100.0100 ####[facility] [address] [place], [address] CBC W/Diff, Automatedon 04-27 Absolute Lymph 1.31 X10 3/uL Normal 0.83-4.51 [facility] Comment on above: Performed By: #### L 500.2500, L100.0100 ####[facility] [address], [address] Absolute Neut 4.4 X10 3/uL Normal 2.0-7.7 [facility] Comment on above: Performed By: #### L 500.2500, L100.0100 ####[facility] [address], [address] Basophils/100 WBC (Bld) 0.3 % Normal 0-1 [facility] Comment on above: Performed By: #### L 500.2500, L100.0100 ####[facility] [address] [place], [address] Eosinophils/100 WBC (Bld) 2.8 % Normal 0-5 [facility] Comment on above: Performed By: #### L 500.2500, L100.0100 ####[facility] [address] [place], [address] Erythrocyte distribution width (RBC) [Ratio] 14.6 % Normal 11.6-14.6 [facility] Comment on above: Performed By: #### L 500.2500, L100.0100 ####[facility] [address] [place], [address] Hematocrit (Bld) [Volume fraction] 25.4 % Low 37-47 [facility] Comment on above: Performed By: #### L 500.2500, L100.0100 ####[facility] [address] [place], [address] Hemoglobin (Bld) [Mass/Vol] 8.4 g/dL Low 12.0-15.0 [facility] Comment on above: Performed By: #### L 500.2500, L100.0100 ####[facility] [address], [address] IG% 1.900 High 0.0-0.9 [facility] Comment on above: Result Comment: IG% - Immature Granulocytes (promyelocytes, myelocytes andmetamyelocytes) > 1% indicates that a LEFT SHIFT is Present. Performed By: #### L 500.2500, L100.0100 ####[facility] [address] [place], [address] Lymphocytes/100 WBC (Bld) 19.4 % Normal 19-41 [facility] Comment on above: Performed By: #### L 500.2500, L100.0100 ####[facility] [address] [place], [address] MCH (RBC) [Entitic mass] 30.0 pg Normal 27.0-32.0 [facility] Comment on above: Performed By: #### L 500.2500, L100.0100 ####[facility] [address] [place], [address] MCHC (RBC) [Mass/Vol] 33.1 g/dL Normal 32-36 [facility] Comment on above: Performed By: #### L 500.2500, L100.0100 ####[facility] [address] [place], [address] MCV (RBC) [Entitic vol] 90.7 fL Normal 81-99 [facility] Comment on above: Performed By: #### L 500.2500, L100.0100 ####[facility] [address] [place], [address] Monocytes/100 WBC (Bld) 10.4 % High 0-10 [facility] Comment on above: Performed By: #### L 500.2500, L100.0100 ####[facility] [address] [place], [address] Neutrophils/100 WBC (Bld) 65.2 % Normal 47-70 [facility] Comment on above: Performed By: #### L 500.2500, L100.0100 ####[facility] [address] [place], [address] Nucleated RBC (Bld) [#/Vol] 0 10*3/uL Normal 0-5 [facility] Comment on above: Performed By: #### L 500.2500, L100.0100 ####[facility] [address] [place], [address] Platelet mean volume (Bld) [Entitic vol] 9.5 fL Normal 6.2-12.0 [facility] Comment on above: Performed By: #### L 500.2500, L100.0100 ####[facility] [address] [place], [address] Platelets (Bld) [#/Vol] 182 10*3/uL Normal 150-450 [facility] Comment on above: Performed By: #### L 500.2500, L100.0100 ####[facility] [address] [place], [address] RBC (Bld) [#/Vol] 2.80 10*6/uL Low 4.2-5.4 [facility] Comment on above: Performed By: #### L 500.2500, L100.0100 ####[facility] [address] [place], [address] RDW SD 48.5 fl High 35.1-43.9 [facility] Comment on above: Performed By: #### L 500.2500, L100.0100 ####[facility] [address] [place], [address] WBC (Bld) [#/Vol] 6.8 10*3/uL Normal 4.4-11.0 [facility] Comment on above: Performed By: #### L 500.2500, L100.0100 ####[facility] [address] [place], [address] Stool Occult Blood iFOBon STOB Normal [facility] Comment on above: Performed By: #### M 100.7900 ####[facility] [address] [place], [place], [id number] Stool gastrointestinal hemog lobin detection by immunologic methodOrdered By: Eh Huddleston on 05-15-2025 Lower GI hemoglobin IA Ql (Stl) [facility] Absolute lymphocyte countOrd ered By: Manny Murdock on 05-14-2025 Lymphocytes Auto (Unsp spec) [#/Vol] 1.36 10*3/uL 0.83-4.51 [facility] Absolute neutrophil countOrd ered By: Manny Murdock on 05-14-2025 Neutrophils (Bld) [#/Vol] 5.1 10*3/uL 2.0-7.7 [facility] Automated blood erythrocyte countOrdered By: Manny Murdock on 05-14-2025 RBC (Bld) [#/Vol] 3.11 10*6/uL Low 4.2-5.4 [facility] Comment on above: Performed By: #### L 100.0100 ####[facility] [address] [facility] [id number] Automated blood hematocrit ( percentage)Ordered By: Manny Murdock on 05-14-2025 Hematocrit (Bld) [Volume fraction] 28.0 % Low 37-47 [facility] Comment on above: Performed By: #### L 100.0100 ####[facility] [address] [place], [place], [address] Automated lymphocyte count a s percentage of total leukocytesOrdered By: Manyn Murdock on 05-14-2025 Lymphocytes/100 WBC Auto (Unsp spec) 18.1 % Low 19-41 [facility] Basophil percentageOrdered B y: Manny Murdock on 05-14-2025 Basophils/100 WBC (Bld) 0.3 % Normal 0-1 [facility] Comment on above: Performed By: #### L 100.0100 ####[facility] [address] [place], [address] CBC W/Diff, Automatedon 07- Absolute Lymph 1.36 X10 3/uL Normal 0.83-4.51 [facility] Comment on above: Performed By: #### L 100.0100 ####[facility] [address] [place], [address] Absolute Neut 5.1 X10 3/uL Normal 2.0-7.7 [facility] Comment on above: Performed By: #### L 100.0100 ####[facility] [address] [place], [address] IG% 0.900 Normal 0.0-0.9 [facility] Comment on above: Result Comment: IG% - Immature Granulocytes (promyelocytes, myelocytes andmetamyelocytes) > 1% indicates that a LEFT SHIFT is Present. Performed By: #### L 100.0100 ####[facility] [address] [place], [address] Lymphocytes/100 WBC (Bld) 18.1 % Low 19-41 [facility] Comment on above: Performed By: #### L 100.0100 ####[facility] [address] [place], [address] Nucleated RBC (Bld) [#/Vol] 0 10*3/uL Normal 0-5 [facility] Comment on above: Performed By: #### L 100.0100 ####[facility] [address] [place], [address] RDW SD 47.7 fl High 35.1-43.9 [facility] Comment on above: Performed By: #### L 100.0100 ####[facility] [address] [place], [address] Eosinophil percentageOrdered By: Manny Murdock on 05-14-2025 Eosinophils/100 WBC (Bld) 2.9 % Normal 0-5 [facility] Comment on above: Performed By: #### L 100.0100 ####[facility] [address] [place], [place], [address] Erythrocyte distribution wid th ratioOrdered By: Manny Murdock on 05-14-2025 Erythrocyte distribution width (RBC) [Ratio] 14.6 % Normal 11.6-14.6 [facility] Comment on above: Performed By: #### L 100.0100 ####[facility] [address] [place], [place], [id number]) Erythrocyte distribution wid th standard deviationOrdered By: Manny Murdock on 05-14-2025 Erythrocyte distribution width (RBC) [Ratio] 47.7 fl High 35.1-43.9 [facility] Hemoglobin measurementOrdere d By: Manny Murdock on 05-14-2025 Hemoglobin (Bld) [Mass/Vol] 9.5 g/dL Low 12.0-15.0 [facility] Comment on above: Performed By: #### L 100.0100 ####[facility] [address] [place], [place], [address] Immature granulocytes/100 WB C Auto (Bld)Ordered By: Manny Murdock on 05-14-2025 Immature granulocytes/100 WBC (Bld) 0.900 % 0.0-0.9 [facility] Comment on above: IG% - Immature Granu locytes (promyelocytes, myelocytes and metamyelocytes) > 1% indicates that a LEFT SHIFT is Present. MCV (mean corpuscular volume ) determinationOrdered By: Manny Murdock on 05-14-2025 MCV (RBC) [Entitic vol] 90.0 fL Normal 81-99 [facility] Comment on above: Performed By: #### L 100.0100 ####[facility] [address] [place], [place], [id number] Mean corpuscular hemoglobin (MCH) determinationOrdered By: Manny Murdock on 05-14-2025 MCH (RBC) [Entitic mass] 30.5 pg Normal 27.0-32.0 [facility] Comment on above: Performed By: #### L 100.0100 ####[facility] [address] [place], [address] Mean corpuscular hemoglobin concentration (MCHC) determinationOrdered By: Manny Murdock on 05-14-2025 MCHC (RBC) [Mass/Vol] 33.9 g/dL Normal 32-36 [facility] Comment on above: Performed By: #### L 100.0100 ####[facility] [address] [place], [address] Mean platelet volume determi nationOrdered By: Manny Murdock on 05-14-2025 Platelet mean volume (Bld) [Entitic vol] 9.7 fL Normal 6.2-12.0 [facility] Comment on above: Performed By: #### L 100.0100 ####[facility] [address] [place], [address] Monocyte percentageOrdered B y: Manny Murdock on 05-14-2025 Monocytes/100 WBC (Bld) 10.3 % High 0-10 [facility] Comment on above: Performed By: #### L 100.0100 ####[facility] [address] [place], [address] Neutrophil percentageOrdered By: Manny Murdock on 05-14-2025 Neutrophils/100 WBC (Bld) 67.5 % Normal 47-70 [facility] Comment on above: Performed By: #### L 100.0100 ####[facility] [address] [place], [address] Nucleated red blood cell per centageOrdered By: Manny Murdock on 05-14-2025 Nucleated RBC/100 WBC (Bld) [Ratio] 0 % 0-5 [facility] Platelet countOrdered By: Jessica Murdock on 05-14-2025 Platelets (Bld) [#/Vol] 186 10*3/uL Normal 150-450 [facility] Comment on above: Performed By: #### L 100.0100 ####[facility] [address] [place], [address] White blood cell (WBC) count Ordered By: Manny Murdock on 05-14-2025 WBC (Bld) [#/Vol] 7.5 10*3/uL Normal 4.4-11.0 [facility] Comment on above: Performed By: #### L 100.0100 ####[facility] [address] [place], [address] Bedside Glucoseon 05-13-2025 FINGERSTICK GLU 141 mg/dL High 74-106 [facility] Comment on above: Result Comment: CHRISTIAN GEMENT OF PATIENT CARE PER NURSING PROTOCOL Performed By: #### L 501.080 ####[facility] [address] [place], [address] FINGERSTICK GLU 131 mg/dL High 74-106 [facility] Comment on above: Result Comment: CHRISTIAN GEMENT OF PATIENT CARE PER NURSING PROTOCOL Performed By: #### L 501.080 ####[facility] [address] [place], [address] FINGERSTICK GLU 119 mg/dL High 74-106 [facility] Comment on above: Result Comment: CHRISTIAN GEMENT OF PATIENT CARE PER NURSING PROTOCOL Performed By: #### L 501.080 ####[facility] [address] [place], [address] FINGERSTICK GLU 124 mg/dL High 74-106 [facility] Comment on above: Result Comment: CHRISTIAN GEMENT OF PATIENT CARE PER NURSING PROTOCOL Performed By: #### L 501.080 ####[facility] [address] [place], [address] CBC W/Diff, Automatedon 07- Absolute Lymph 1.16 X10 3/uL Normal 0.83-4.51 [facility] Comment on above: Performed By: #### L 100.0100 ####[facility] [address] [place], [address] Absolute Neut 5.6 X10 3/uL Normal 2.0-7.7 [facility] Comment on above: Performed By: #### L 100.0100 ####[facility] [address] [place], [address] Basophils/100 WBC (Bld) 0.3 % Normal 0-1 [facility] Comment on above: Performed By: #### L 100.0100 ####[facility] [address] [place], [address] Eosinophils/100 WBC (Bld) 2.3 % Normal 0-5 [facility] Comment on above: Performed By: #### L 100.0100 ####[facility] [address] [place], [address] Erythrocyte distribution width (RBC) [Ratio] 14.8 % High 11.6-14.6 [facility] Comment on above: Performed By: #### L 100.0100 ####[facility] [address] [place], [address] Hematocrit (Bld) [Volume fraction] 26.3 % Low 37-47 [facility] Comment on above: Performed By: #### L 100.0100 ####[facility] [address] [place], [address] Hemoglobin (Bld) [Mass/Vol] 8.8 g/dL Low 12.0-15.0 [facility] Comment on above: Performed By: #### L 100.0100 ####[facility] [address] [place], [address] IG% 0.600 Normal 0.0-0.9 [facility] Comment on above: Result Comment: IG% - Immature Granulocytes (promyelocytes, myelocytes andmetamyelocytes) > 1% indicates that a LEFT SHIFT is Present. Performed By: #### L 100.0100 ####[facility] [address] [place], [address] Lymphocytes/100 WBC (Bld) 14.8 % Low 19-41 [facility] Comment on above: Performed By: #### L 100.0100 ####[facility] [address] [place], [address] MCH (RBC) [Entitic mass] 30.2 pg Normal 27.0-32.0 [facility] Comment on above: Performed By: #### L 100.0100 ####[facility] [address] [place], [address] MCHC (RBC) [Mass/Vol] 33.5 g/dL Normal 32-36 [facility] Comment on above: Performed By: #### L 100.0100 ####[facility] [address] [place], [address] MCV (RBC) [Entitic vol] 90.4 fL Normal 81-99 [facility] Comment on above: Performed By: #### L 100.0100 ####[facility] [address] [place], [address] Monocytes/100 WBC (Bld) 11.2 % High 0-10 [facility] Comment on above: Performed By: #### L 100.0100 ####[facility] [address] [place], [address] Neutrophils/100 WBC (Bld) 70.8 % High 47-70 [facility] Comment on above: Performed By: #### L 100.0100 ####[facility] [address] [place], [address] Nucleated RBC (Bld) [#/Vol] 0 10*3/uL Normal 0-5 [facility] Comment on above: Performed By: #### L 100.0100 ####[facility] [address] [place], [address] Platelet mean volume (Bld) [Entitic vol] 9.6 fL Normal 6.2-12.0 [facility] Comment on above: Performed By: #### L 100.0100 ####[facility] [address] [place], [address] Platelets (Bld) [#/Vol] 149 10*3/uL Low 150-450 [facility] Comment on above: Performed By: #### L 100.0100 ####[facility] [address] [place], [address] RBC (Bld) [#/Vol] 2.91 10*6/uL Low 4.2-5.4 [facility] Comment on above: Performed By: #### L 100.0100 ####[facility] [address] [place], [address] RDW SD 48.9 fl High 35.1-43.9 [facility] Comment on above: Performed By: #### L 100.0100 ####[facility] [address] [place], [address] WBC (Bld) [#/Vol] 7.9 10*3/uL Normal 4.4-11.0 [facility] Comment on above: Performed By: #### L 100.0100 ####[facility] [address] [place], [address] Calculated very low density lipoprotein (VLDL) cholesterol measurementOrdered By: Manny Murdock on 05-13-2025 Calculated very low density lipoprotein (VLDL) cholesterol measurement 27 mg/dL 5-40 [facility] Electrocardiogram reportOrde red By: Azul Pratt on 05-13-2025 EKG study [facility] Cardiovascular Services [address] [place] [address] 12 Lead EKG 05/08/25 0505 MR#: [id number] Acct: [id number] Name: GOGO WARE #:[id number] : 1940 85 From: Azul sauceda MD Attending Dr: Dr. Manny Murdock MD Status: ADM IN Ordering Dr: Jim Jones MD Date: 04/27 12/22 Location: U Sex: F C Admitted: 05/07/25 Test Reason : Pre-Op Blood Pressure : */* mmHG Vent. Rate : 77 BPM Atrial Rate : 77 BPM P-R Int : 200 ms QRS Dur : 94 ms QT Int : 414 ms P-R-T Axes : 80 42 86 degrees QTcB Int : 468 ms Normal sinus rhythm Normal ECG Confirmed by Azul Pratt ([id number]), loan expeditor SHERMAN AUGUST ([id number]) on 05/13/2025 8:35:20 AM Referred By: Karen Confirmed By: Azul Pratt 05/13/25 0835 Date _ Azul Pratt MD CC: Dr. Jim Jones MD; Dr. Manny Murdock MD; Dr. Eh Huddleston MD ~ Signed [facility] Other Phone: [facility] deOrdered By: Manny Murdock on 05-13-2025 Glucose [Mass/Vol] 141 mg/dL High 74-106 [facility] Comment on above: MANAGEMENT OF PATIEN T CARE PER NURSING PROTOCOL Hemoglobin A1con 05-13-2025 HbA1c (Bld) [Mass fraction] 5.5 % Normal <=5.6 [facility] Comment on above: Result Comment: Norm al < 5.7 % Prediabetic 5.7 - 6.4 % Diabetic >or= 6.5 % Please note range changes. Performed By: #### L 997.5785 ####[facility] [address] [place], [address] Hemoglobin A1c percentageOrd ered By: Manny Murdock on 05-13-2025 HbA1c (Bld) [Mass fraction] 5.5 % <5.7 [facility] Comment on above: Normal < 5.7 % Predi abetic 5.7 - 6.4 % Diabetic >or= 6.5 % Please note range changes. LDL calc ser/plasOrdered By: Manny Murdock on 05-13-2025 Cholesterol in LDL [Mass/Vol] 61 mg/dL [facility] Comment on above: Ciykstbyiu=760-439 m g/dL & Higher Zktm=027 mg/dL or greater Lipid Profileon 05-13-2025 CHOL:HDL 3.58 Normal [facility] Comment on above: Order Comment: Comme nts: NPO at [place] prior to lipid panel Performed By: #### L 501.9520, L500.4100 ####[facility] [address] [place], [place], [address] Cholesterol [Mass/Vol] 122 mg/dL Normal <=200 [facility] Comment on above: Order Comment: Comme nts: NPO at [place] prior to lipid panel Result Comment: Chol esterol level, Desirable <200 mg/dLBorderline high cholesterol 200-239 mg/dLHigh cholesterol >=240 mg/dLRecommendations of the NCEP Adult Treatment Panel for thefollowing risk-cutoff thresholds for the [place] Americanpopulation. Performed By: #### L 501.9520, L500.4100 ####[facility] [address] [place], [place], [address] Cholesterol in HDL [Mass/Vol] 34 mg/dL Low [facility] Comment on above: Order Comment: Comme nts: NPO at [place] prior to lipid panel Result Comment: Elaine onal Cholesterol Education Program (NCEP) guidelines:<40 mg/dL: Low HDL-cholesterol (major risk factor for CHD)>= 60 mg/dL: High HDL-cholesterol (negative risk factor forCHD)HDL-cholesterol is affected by a number of factors, e.g.smoking, exercise, hormones, sex and age. Performed By: #### L 501.9520, L500.4100 ####[facility] [address] [place], [place], [phone] Cholesterol in LDL [Mass/Vol] 61 mg/dL Normal [facility] Comment on above: Order Comment: Comme nts: NPO at [place] prior to lipid panel Result Comment: Bord qftkrs=181-640 mg/dL Higher Jvwj=604 mg/dL or greater Performed By: #### L 501.9520, L500.4100 ####[facility] [address] [place], [place], [phone] Cholesterol in VLDL [Mass/Vol] 27 mg/dL Normal 5-40 [facility] Comment on above: Order Comment: Comme nts: NPO at [place] prior to lipid panel Performed By: #### L 501.9520, L500.4100 ####[facility] [address] [place], [place], [phone] Triglyceride [Mass/Vol] 133 mg/dL Normal [facility] Comment on above: Order Comment: Comme nts: NPO at [place] prior to lipid panel Result Comment: The drugs N-Acetylcysteine and Metamizole may falselydepress this assay.Normal range: <150 mg/dLBorderline High: 150-199 mg/dLHigh: 200-499 mg/dLVery High: >500 mg/dL Performed By: #### L 501.9520, L500.4100 ####[facility] [address] [place], [place], [id number] Screening total cholesterol/ high density lipoprotein (HDL) cholesterol ratioOrdered By: Manny Murdock on 05-13-2025 Cholesterol.total/Cho lesterol in HDL [Mass ratio] 3.58 {ratio} [facility] Serum or plasma cholesterol in HDL measurement (mass/volume)Ordered By: Manny Murdock on 05-13-2025 Cholesterol in HDL [Mass/Vol] 34 mg/dL Low >40 [facility] Comment on above: National Cholesterol Education Program (NCEP) guidelines:<40 mg/dL: Low HDL-cholesterol (major risk factor for CHD)>= 60 mg/dL: High HDL-cholesterol (negative risk factor for CHD)HDL-cholesterol is affected by a number of factors, e.g. smoking, exercise, hormones, sex and age. Serum or plasma cholesterol measurement (mass/volume)Ordered By: Manny Murdock on 05-13-2025 Cholesterol [Mass/Vol] 122 mg/dL <201 [facility] Comment on above: Cholesterol level, D esirable <200 mg/dLBorderline high cholesterol 200-239 mg/dLHigh cholesterol >=240 mg/dLRecommendations of the NCEP Adult Treatment Panel for the following risk-cutoff thresholds for the [place] population. TSH DL <= 0.005 mIU/L QnOrde red By: Manny Murdock on 05-13-2025 TSH Qn 2.480 uIU/mL 0.300-4.20 0 [facility] Thyroid Stim Hormone (TSH)on 05-13-2025 TSH 2.480 uIU/mL Normal 0.300-4.20 0 [facility] Comment on above: Order Comment: Comme nts: NPO at [place] prior to lipid panel Performed By: #### L 501.9520, L500.4100 ####[facility] [address] [place], [address] Triglycerides measurementOrd ered By: Manny Murdock on 05-13-2025 Triglyceride [Mass/Vol] 133 mg/dL <199 [facility] Comment on above: The drugs N-Acetylcy steine and Metamizole may falsely depress this assay. Normal range: <150 mg/dLBorderline High: 150-199 mg/dLHigh: 200-499 mg/dLVery High: >500 mg/dL Anion gap in Serum or Plasma Ordered By: Manny Murdock on 05-12-2025 Anion gap [Moles/Vol] 8 mmol/L -15 [facility] BUN/creatinine ratioOrdered By: Manny Murdock on 05-12-2025 Urea nitrogen/Creatinine [Mass ratio] 34.0 mg/mg High 08-16 [facility] Basic Metabolic Profile (BMP )on 05-12-2025 BUN/CRE 34.0 RATIO High 08-16 [facility] Comment on above: Performed By: #### L 100.0100, L500.2500 ####[facility] [address] [place], [address] Calcium [Mass/Vol] 7.8 mg/dL Normal 7.6-11.0 [facility] Comment on above: Performed By: #### L 100.0100, L500.2500 ####[facility] [address] [place], [address] Chloride [Moles/Vol] 109 mmol/L High 98-108 [facility] Comment on above: Performed By: #### L 100.0100, L500.2500 ####[facility] [address] [place], [address] CO2 [Moles/Vol] 19.5 mmol/L Low 21.0-32.0 [facility] Comment on above: Performed By: #### L 100.0100, L500.2500 ####[facility] [address] [place], [address] Creatinine [Mass/Vol] 0.68 mg/dL Low 0.70-1.20 [facility] Comment on above: Performed By: #### L 100.0100, L500.2500 ####[facility] [address] [place], [address] ECRCL 51.35 ml/min Normal 50-250 [facility] Comment on above: Performed By: #### L 100.0100, L500.2500 ####[facility] [address] [place], [address] GAP 8 Normal 5-15 [facility] Comment on above: Performed By: #### L 100.0100, L500.2500 ####[facility] [address] [place], [address] GFR/1.73 sq M.predicted among non-blacks MDRD (S/P/Bld) [Vol rate/Area] 85 mL/min/{1.73_m2} Normal >60 [facility] Comment on above: Result Comment: mL/m in/1.73m2 CKD-EPI Creatinine Equation (2020) Performed By: #### L 100.0100, L500.2500 ####[facility] [address] [place], [address] Glucose [Mass/Vol] 168 mg/dL High 70-99 [facility] Comment on above: Performed By: #### L 100.0100, L500.2500 ####[facility] [address] [place], [address] Potassium [Moles/Vol] 4.0 mmol/L Normal 3.3-5.1 [facility] Comment on above: Performed By: #### L 100.0100, L500.2500 ####[facility] [address] [place], [address] Sodium [Moles/Vol] 137 mmol/L Normal 133-145 [facility] Comment on above: Performed By: #### L 100.0100, L500.2500 ####[facility] [address] [place], [address] Urea nitrogen [Mass/Vol] 23 mg/dL High 4-19 [facility] Comment on above: Performed By: #### L 100.0100, L500.2500 ####[facility] [address] [place], [address] CBC W/Diff, Automatedon 07- Absolute Lymph 0.78 X10 3/uL Low 0.83-4.51 [facility] Comment on above: Performed By: #### L 100.0100, L500.2500 ####[facility] [address], [address] Absolute Neut 5.5 X10 3/uL Normal 2.0-7.7 [facility] Comment on above: Performed By: #### L 100.0100, L500.2500 ####[facility] [address] [place], [address] Basophils/100 WBC (Bld) 0.1 % Normal 0-1 [facility] Comment on above: Performed By: #### L 100.0100, L500.2500 ####[facility] [address] [place], [address] Eosinophils/100 WBC (Bld) 1.2 % Normal 0-5 [facility] Comment on above: Performed By: #### L 100.0100, L500.2500 ####[facility] [address] [place], [address] Erythrocyte distribution width (RBC) [Ratio] 14.8 % High 11.6-14.6 [facility] Comment on above: Performed By: #### L 100.0100, L500.2500 ####[facility] [address] [place], [address] Hematocrit (Bld) [Volume fraction] 24.6 % Low 37-47 [facility] Comment on above: Performed By: #### L 100.0100, L500.2500 ####[facility] [address] [place], [address] Hemoglobin (Bld) [Mass/Vol] 8.3 g/dL Low 12.0-15.0 [facility] Comment on above: Performed By: #### L 100.0100, L500.2500 ####[facility] [address] [place], [address] IG% 0.700 Normal 0.0-0.9 [facility] Comment on above: Result Comment: IG% - Immature Granulocytes (promyelocytes, myelocytes andmetamyelocytes) > 1% indicates that a LEFT SHIFT is Present. Performed By: #### L 100.0100, L500.2500 ####[facility] [address] [place], [address] Lymphocytes/100 WBC (Bld) 10.7 % Low 19-41 [facility] Comment on above: Performed By: #### L 100.0100, L500.2500 ####[facility] [address] [place], [address] MCH (RBC) [Entitic mass] 30.3 pg Normal 27.0-32.0 [facility] Comment on above: Performed By: #### L 100.0100, L500.2500 ####[facility] [address] [place], [address] MCHC (RBC) [Mass/Vol] 33.7 g/dL Normal 32-36 [facility] Comment on above: Performed By: #### L 100.0100, L500.2500 ####[facility] [address] [place], [address] MCV (RBC) [Entitic vol] 89.8 fL Normal 81-99 [facility] Comment on above: Performed By: #### L 100.0100, L500.2500 ####[facility] [address] [place], [address] Monocytes/100 WBC (Bld) 10.9 % High 0-10 [facility] Comment on above: Performed By: #### L 100.0100, L500.2500 ####[facility] [address] [place], [address] Neutrophils/100 WBC (Bld) 76.4 % High 47-70 [facility] Comment on above: Performed By: #### L 100.0100, L500.2500 ####[facility] [address] [place], [address] Nucleated RBC (Bld) [#/Vol] 0 10*3/uL Normal 0-5 [facility] Comment on above: Performed By: #### L 100.0100, L500.2500 ####[facility] [address] [place], [address] Platelet mean volume (Bld) [Entitic vol] 10.1 fL Normal 6.2-12.0 [facility] Comment on above: Performed By: #### L 100.0100, L500.2500 ####[facility] [address] [place], [address] Platelets (Bld) [#/Vol] 129 10*3/uL Low 150-450 [facility] Comment on above: Performed By: #### L 100.0100, L500.2500 ####[facility] [address] [place], [address] RBC (Bld) [#/Vol] 2.74 10*6/uL Low 4.2-5.4 [facility] Comment on above: Performed By: #### L 100.0100, L500.2500 ####[facility] [address] [place], [address] RDW SD 48.1 fl High 35.1-43.9 [facility] Comment on above: Performed By: #### L 100.0100, L500.2500 ####[facility] [address] [place], [address] WBC (Bld) [#/Vol] 7.3 10*3/uL Normal 4.4-11.0 [facility] Comment on above: Performed By: #### L 100.0100, L500.2500 ####[facility] [address] [place], [address] Carbon dioxide, total [Moles /volume] in Central venous bloodOrdered By: Manny Murdock on 05-12-2025 CO2 [Moles/Vol] 19.5 mmol/L Low 21.0-32.0 [facility] Chloride assayOrdered By: Jessica Murdock on 05-12-2025 Chloride [Moles/Vol] 109 mmol/L High 98-108 [facility] Echocardiogram study reportO rdered By: Tracy Kaur on 05-12-2025 Study report [facility] Cardiovascular [place] [address] Echo Complete W/ Contrast 05/11/252218 MR#: [id number] Acct: [id number] Name: GOGO WARE p #:[id number] : 1940 85 From: Tracy Kaur MD Attending Dr: Dr. Manny Murdock MD Status: ADM IN Ordering Dr: Sourav Casiano DO Date: 05/11/25 Location: U Sex: F C Admitted: 05/07/25 Reason For Study Reason For Study: TIA/CVA Procedure This was a 2D Doppler, Color Flow transthoracic echocardiogram. The study was technically difficult. Contrast injection was performed. Echo done with patient supine due to left femur fracture. Exam performed portable in patient room. Left Ventricle Normal LV size. Mild eccentric left ventricular hypertrophy. The estimated ejection fraction is 65 %. Stage 2 diastolic dysfunction. No regional wall motion abnormalities noted. Right Ventricle Normal RV size. Normal systolic function. Atria The left atrium is mildly enlarged. Normal right atrium. Prominent eustachian valve. Mitral Valve Moderate mitral annular calcification. Trivial mitral valve insufficiency. Tricuspid Valve Normal tricuspid valve. Mild (1+) tricuspid valve insufficiency. Pulmonary artery systolic pressure is 52 mmHg. Aortic Valve Peak aortic valve gradient 38 mmHg. Mean aortic valve gradient 24 mmHg. Stable appearing bioprosthetic aortic valve apparatus. Pulmonic Valve The pulmonic valve is not well visualized. Great Vessels The aortic root is not well visualized. Pericardium/Pleural No pericardial effusion. Medication Diluted definity 2.5ml given slow IV push to enhance endocardial definition. MMode/2D Measurements & Calculations LVIDd: 4.3 cm IVSd: 1.1 cm LVOT diam: 1.7 cm LVIDs: 2.8 cm LVPWd: 1.0 cm RVDd: 3.6 cm FS: 35.1 % LVOT area: 2.2 cm2 LA dimension: 3.0 cm LAV(MOD-bp): 79.3 ml LVAd ap4: 29.9 cm2 LAV(MOD-bp) Indexed: 43.4 ml/m2 LVLd ap4: 8.3 cm LAV(MOD-sp2): 71.8 ml EDV(MOD-sp4): 87.0 ml LAV(MOD-sp4): 81.2 ml EDV(sp4-el): 91.5 ml LVAs ap4: 14.2 cm2 LVLs ap4: 6.5 cm ESV(MOD-sp4): 26.1 ml ESV(sp4-el): 26.4 ml EF(MOD-sp4): 70.0 % EF(sp4-el): 71.1 % SV(MOD-sp4): 60.9 ml SV(sp4-el): 65.1 ml LA A4 area: 24.3 cm2 SI(MOD-sp4): 33.3 ml/m2 RA A4 area: 17.1 cm2 TAPSE: 2.6 cm Time Measurements MV dec time: 0.28 sec Doppler Measurements & Calculations MV E max surinder: 118.1 cm/sec Lat Peak E' Surinder: 8.7 cm/sec Med Peak E' Surinder: 8.4 cm/sec MV A max surinder: 117.9 cm/sec E/E' lat: 13.6 E/E' med: 14.1 MV E/A: 1.0 MV V2 max: 162.0 cm/sec MV P1/2t max surinder: 162.7 cm/sec Ao V2 max: 307.9 cm/sec MV max P.5 mmHg MV P1/2t: 109.3 msec Ao max P.1 mmHg MV V2 mean: 90.2 cm/sec MV dec slope: 436.0 cm/sec2 Ao V2 mean: 232.1 cm/sec MV mean P.9 mmHg MVA(P1/2t): 2.0 cm2 Ao mean P.9 mmHg MV V2 VTI: 61.5 cm Ao V2 VTI: 68.2 cm MVA(VTI): 1.3 cm2 AV (velocity ratio): 0.52 EFFIE(I,D): 1.1 cm2 EFFIE(V,D): 1.0 cm2 LV V1 max: 142.2 cm/sec SV(LVOT): 77.4 ml TR max surinder: 305.7 cm/sec LV V1 max P.1 mmHg TR max P.4 mmHg LV V1 mean P.2 mmHg LV V1 mean: 108.8 cm/sec LV V1 VTI: 35.4 cm ECHO/Echo Complete W/ Contrast Interpretation Summary The estimated ejection fraction is 65 %. Stage 2 diastolic dysfunction. The left atrium is mildly enlarged. Stable appearing bioprosthetic aortic valve apparatus. Mean peak gradient 24 mmHg. Mild (1+) tricuspid valve insufficiency. Pulmonary artery systolic pressure is 52 mmHg. Contrast injection was performed. Ordering Physician: Sourav Casiano Performed By: José Manuel Siddiqui and Student 05/12/25 1226 Date _ Tracy Kaur MD CC: Dr. Sourav Casiano DO; Dr. Manny Murdock MD; Dr. Eh Huddleston MD ~ Date Dictated: 05/11/252218 Date Transcribed: 05/12/251225 General Studies Program Chair: Signed [facility] Work Phone: Electrocardiogram reportOrde red By: Azul Pratt on 05-12-2025 EKG study [facility] Cardiovascular Services [address] [place] [address] 12 Lead EKG 05/10/25 1638 MR#: [id number] Acct: [id number] Name: GOGO WARE p #:[id number] : 1940 85 From: Azul sauceda MD Attending Dr: Dr. Manny Murdock MD Status: ADM IN Ordering Dr: Sourav Casiano DO Date: 05/10/25 Location: [facility] Sex: F C Admitted: 05/07/25 Test Reason : other Blood Pressure : */* mmHG Vent. Rate : 76 BPM Atrial Rate : 76 BPM P-R Int : 208 ms QRS Dur : 94 ms QT Int : 398 ms P-R-T Axes : 76 31 118 degrees QTcB Int : 447 ms Normal sinus rhythm ST & T wave abnormality, consider lateral ischemia Abnormal ECG When compared with ECG of 27-Nov-2017 05:34, Nonspecific T wave abnormality, worse in Inferior leads T wave inversion now evident in Lateral leads Confirmed by Azul Pratt ([id number]), loan expeditor SHERMAN AUGUST ([id number]) on 05/12/2025 11:36:28 AM Referred By: Confirmed By: Azul Pratt 05/12/25 1136 Date _ Azul Pratt MD CC: Dr. Sourav Casiano DO; Dr. Manny Murdock MD; Dr. Eh Huddleston MD ~ Signed [facility] Other Phone: Glomerular filtration rate ( GFR) estimation/1.73 sq m using serum, plasma, or whole bOrdered By: Manny Murdock on 05-12-2025 GFR/1.73 sq M.predicted among non-blacks MDRD (S/P/Bld) [Vol rate/Area] 85 mL/min/{1.73_m2} >60 [facility] Comment on above: mL/min/1.73m2 CKD-EP I Creatinine Equation (2020) MR/CON.PCM.NEon 05-12-2025 MR/CON.PCM.NE Normal [facility] Potassium measurement (mass/ volume)Ordered By: Manny Murdock on 05-12-2025 Potassium (Unsp spec) [Mass/Vol] 4.0 mmol/L 3.3-5.1 [facility] Serum creatinine measurement (mass/volume)Ordered By: Manny Murdock on 05-12-2025 Creatinine [Mass/Vol] 0.68 mg/dL Low 0.70-1.20 [facility] Serum glucose measurement (m ass/volume)Ordered By: Manny Murdock on 05-12-2025 Glucose [Mass/Vol] 168 mg/dL High 70-99 [facility] Serum or plasma calcium susy urement (mass/volume)Ordered By: Manny Murdock on 05-12-2025 Calcium [Mass/Vol] 7.8 mg/dL 7.6-11.0 [facility] Serum or plasma urea nitroge n measurement (mass/volume)Ordered By: Manny Murdock on 05-12-2025 Urea nitrogen [Mass/Vol] 23 mg/dL High 4-19 [facility] Sodium levelOrdered By: Tracie Murdock on 05-12-2025 Sodium [Moles/Vol] 137 mmol/L 133-145 [facility] BRCon 05-11-2025 RC Normal [facility] Comment on above: Result Comment: [id number] ABP RC TRANSFUSED 05/11/25 [id number] ABN RC TRANSFUSED 05/11/25 1721 Performed By: #### B , [facility] ####[facility] [address] [place], [address] Bilirubin Test strip Ql (U)O rdered By: Sourav Casiano on 05-11-2025 Bilirubin Ql (U) Negative Negative [facility] Brain without Contraston Brain without Contrast Normal [facility] CBC W/Diff, Automatedon 04-27 Absolute Lymph 0.81 X10 3/uL Low 0.83-4.51 [facility] Comment on above: Performed By: #### L 100.0100 ####[facility] [address] [place], [address] Absolute Neut 8.4 X10 3/uL High 2.0-7.7 [facility] Comment on above: Performed By: #### L 100.0100 ####[facility] [address] [place], [address] Basophils/100 WBC (Bld) 0.1 % Normal 0-1 [facility] Comment on above: Performed By: #### L 100.0100 ####[facility] [address] [place], [address] Eosinophils/100 WBC (Bld) 0.5 % Normal 0-5 [facility] Comment on above: Performed By: #### L 100.0100 ####[facility] [address] [place], [address] Erythrocyte distribution width (RBC) [Ratio] 13.9 % Normal 11.6-14.6 [facility] Comment on above: Performed By: #### L 100.0100 ####[facility] [address] [place], [address] Hematocrit (Bld) [Volume fraction] 18.5 % Low 37-47 [facility] Comment on above: Performed By: #### L 100.0100 ####[facility] [address] [place], [address] Hemoglobin (Bld) [Mass/Vol] 6.3 g/dL Low 12.0-15.0 [facility] Comment on above: Performed By: #### L 100.0100 ####[facility] [address] [place], [address] IG% 0.300 Normal 0.0-0.9 [facility] Comment on above: Result Comment: IG% - Immature Granulocytes (promyelocytes, myelocytes andmetamyelocytes) > 1% indicates that a LEFT SHIFT is Present. Performed By: #### L 100.0100 ####[facility] [address] [place], [address] Lymphocytes/100 WBC (Bld) 7.8 % Low 19-41 [facility] Comment on above: Performed By: #### L 100.0100 ####[facility] [address] [place], [address] MCH (RBC) [Entitic mass] 31.2 pg Normal 27.0-32.0 [facility] Comment on above: Performed By: #### L 100.0100 ####[facility] [address] [place], [address] MCHC (RBC) [Mass/Vol] 34.1 g/dL Normal 32-36 [facility] Comment on above: Performed By: #### L 100.0100 ####[facility] [address] [place], [address] MCV (RBC) [Entitic vol] 91.6 fL Normal 81-99 [facility] Comment on above: Performed By: #### L 100.0100 ####[facility] [address] [place], [address] Monocytes/100 WBC (Bld) 10.4 % High 0-10 [facility] Comment on above: Performed By: #### L 100.0100 ####[facility] [address] [place], [address] Neutrophils/100 WBC (Bld) 80.9 % High 47-70 [facility] Comment on above: Performed By: #### L 100.0100 ####[facility] [address] [place], [address] Nucleated RBC (Bld) [#/Vol] 0 10*3/uL Normal 0-5 [facility] Comment on above: Performed By: #### L 100.0100 ####[facility] [address] [place], [address] Platelet mean volume (Bld) [Entitic vol] 10.7 fL Normal 6.2-12.0 [facility] Comment on above: Performed By: #### L 100.0100 ####[facility] [address] [place], [address] Platelets (Bld) [#/Vol] 114 10*3/uL Low 150-450 [facility] Comment on above: Performed By: #### L 100.0100 ####[facility] [address] [place], [address] RBC (Bld) [#/Vol] 2.02 10*6/uL Low 4.2-5.4 [facility] Comment on above: Performed By: #### L 100.0100 ####[facility] [address] [place], [address] RDW SD 47.1 fl High 35.1-43.9 [facility] Comment on above: Performed By: #### L 100.0100 ####[facility] [address] [place], [address] WBC (Bld) [#/Vol] 10.3 10*3/uL Normal 4.4-11.0 [facility] Comment on above: Performed By: #### L 100.0100 ####[facility] [address] [place], [address] Absolute Neut Normal 2.0-7.7 [facility] Comment on above: Result Comment: This specimen has been REJECTED due to Laboratory criteria:Clotted.SAMEERA has been notified of need of recollection.05/11/256[address] [place] Performed By: #### L 100.0100 ####[facility] [address] [place], [address] HCT Normal 37-47 [facility] Comment on above: Result Comment: This specimen has been REJECTED due to Laboratory criteria:Clotted.SAMEERA has been notified of need of recollection.05/11/25638 [place] Performed By: #### L 100.0100 ####[facility] [address] [place], [address] HGB Normal 12.0-15.0 [facility] Comment on above: Result Comment: This specimen has been REJECTED due to Laboratory criteria:Clotted.SAMEERA has been notified of need of recollection.05/11/25638 [place] Performed By: #### L 100.0100 ####[facility] [address] [place], [address] MCH Normal 27.0-32.0 [facility] Comment on above: Result Comment: This specimen has been REJECTED due to Laboratory criteria:Clotted.SAMEERA has been notified of need of recollection.05/11/256[address] [place] Performed By: #### L 100.0100 ####[facility] [address] [place], [address] MCHC Normal 32-36 [facility] Comment on above: Result Comment: This specimen has been REJECTED due to Laboratory criteria:Clotted.SAMEERA has been notified of need of recollection.05/11/256[address] [place] Performed By: #### L 100.0100 ####[facility] [address] [place], [address] MCV Normal 81-99 [facility] Comment on above: Result Comment: This specimen has been REJECTED due to Laboratory criteria:Clotted.SAMEERA has been notified of need of recollection.05/11/25638 [place] Performed By: #### L 100.0100 ####[facility] [address] [place], [address] NEUT% Normal 47-70 [facility] Comment on above: Result Comment: This specimen has been REJECTED due to Laboratory criteria:Clotted.SAMEERA has been notified of need of recollection.05/11/256[address] [place] Performed By: #### L 100.0100 ####[facility] [address] [place], [address] PLT Normal 150-450 [facility] Comment on above: Result Comment: This specimen has been REJECTED due to Laboratory criteria:Clotted.SAMEERA has been notified of need of recollection.05/11/25638 [place] Performed By: #### L 100.0100 ####[facility] [address] [place], [address] RBC Normal 4.2-5.4 [facility] Comment on above: Result Comment: This specimen has been REJECTED due to Laboratory criteria:Clotted.SAMEERA has been notified of need of recollection.05/11/25638 [place] Performed By: #### L 100.0100 ####[facility] [address] [place], [address] RDW CV Normal 11.6-14.6 [facility] Comment on above: Result Comment: This specimen has been REJECTED due to Laboratory criteria:Clotted.SAMEERA has been notified of need of recollection.05/11/256[address] [place] Performed By: #### L 100.0100 ####[facility] [address] [place], [address] RDW SD Normal 35.1-43.9 [facility] Comment on above: Result Comment: This specimen has been REJECTED due to Laboratory criteria:Clotted.SAMEERA has been notified of need of recollection.05/11/256[address] [place] Performed By: #### L 100.0100 ####[facility] [address] [place], [address] WBC Normal 4.4-11.0 [facility] Comment on above: Result Comment: This specimen has been REJECTED due to Laboratory criteria:Clotted.SAMEERA has been notified of need of recollection.05/11/256[address] [place] Performed By: #### L 100.0100 ####[facility] [address] [place], [address] Echo Complete W/ Contraston 05-11-2025 Echo Complete W/ Contrast Normal [facility] Ketones Test strip Ql (U)Ord ered By: Sourav Casiano on 05-11-2025 Ketones Ql (U) Negative Negative [facility] Magnetic resonance imaging r eportOrdered By: Alessandro Hewitt on 05-11-2025 Study report [facility] Imaging Services [address] [place] [address] Brain without Contrast MR#: [id number] Acct: [id number] Name: GOGO WARE Rep #: [id number] : 1940 F 85 From: Rocael Hewitt MD PCP: Dr. Eh Huddleston MD Status: ADM I N Study:Brain without Contrast Date of Exam: 05/11/25 Exam# [id number] Ordering Dr: Sourav Celestin DO PROCEDURE: BRAIN WITHOUT CONTRAST 05/11/2025 REASON FOR EXAM: LETHARGY, RULE OUT CVA TECHNIQUE: Multiplanar and multisequential MRI of the brain was performed without contrast. COMPARISON: CT head/angiography 05/10/2025. FINDINGS: Numerous scattered small foci of restricted diffusion compatible with acute infarct along the bilateral cerebral hemispheres, with several involving the bilateral high posterior frontoparietal cortex, rvxve-jwfmifw-mzzt-left occipital cortex/sub cortex, numerous in the bilateral guo radiata white matter, and few involving the bilateral cerebellar hemispheres. No large territorial infarct. Moderate-advanced chronic small-vessel ischemic-gliotic changes elsewhere withinthe cerebral white matter, with numerous foci of chronic lacunar infarct involving the guo radiata white matter, more so on the left with a prominent focus in the left frontal periventricular white matter just superior to the basal ganglia. No evidence of acute intracranial hemorrhage, extra-axial collection, mass effect or midline shift. Mild-moderate generalized brain parenchymal volume loss. Normal ventricular caliber. Major intracranial vascular flow voids appear preserved. Prior left orbital cataract surgery. Well-aerated paranasal sinuses and bilateral mastoid air cells. MRI/Brain without Contrast IMPRESSION: 1. Numerous scattered small foci of acute infarct throughout the bilateral cerebral and cerebellar hemispheres as described, presumably embolic. 2. Background of moderate-advanced chronic small-vessel ischemic changes, with several foci of chronic lacunar infarct mainly involving the left cerebral periventricular white matter. 3. No intracranial hemorrhage, extra-axial collection, or mass-effect. Reading Location: [id number] CC: Dr. Sourav Casiano DO; Dr. Eh Huddleston MD ~ General Studies Program Chair: Signed [facility] Microscopic analysis of urin e for red blood cells (RBC)Ordered By: Sourav Casiano on 05-11-2025 Microscopic analysis of urine for red blood cells (RBC) 0-5 SEEN /hpf 0-5 [facility] Mucus LM Ql (Urine sed)Order ed By: Sourav Casiano on 05-11-2025 Mucus Ql (Urine sed) 0 SEEN /hpf [facility] Nitrite Test strip Ql (U)Ord ered By: Sourav Casiano on 05-11-2025 Nitrite Ql (U) Negative Negative [facility] Protein Test strip Ql (U)Ord ered By: Sourav Casiano on 05-11-2025 Protein Ql (U) 15 mg/dl High Negative [facility] Squamous epithelial cells de tection in urine sediment by light microscopyOrdered By: Sourav Casiano on 05-11-2025 Epithelial cells.squamous LM Ql (Urine sed) 0-5 SEEN /hpf 5-10 [facility] Type AND Screenon 05-11-2025 ABO and Rh group Nom (Bld) Blood group AB Rh(D) positive Normal [facility] Comment on above: Order Comment: CMV N EG? NNumber of units to transfuse: 2Reason for Ordering Blood: AcuteAre the blood/blood products to be transfused? YIs the patient having/had surgery? YYWh[place] ReadyNYR Performed By: #### B , [facility] ####[facility] [address] [place], [place], [id number] Urinalysis, Completeon 05-11 BACTERIA 2+ /hpf Normal None Seen [facility] Comment on above: Order Comment: LORNA TER SPECIMEN Performed By: #### L 400.0001 ####[facility] [address] [place], [address] EPI,SQUAMOUS 0-5 SEEN Normal 5-10 [facility] Comment on above: Order Comment: LORNA TER SPECIMEN Performed By: #### L 400.0001 ####[facility] [address] [place], [place], [address] RBC 0-5 SEEN Normal 0-5 [facility] Comment on above: Order Comment: LORNA TER SPECIMEN Performed By: #### L 400.0001 ####[facility] [address] [place], [address] WBC 0-5 SEEN Normal 0-5 [facility] Comment on above: Order Comment: LORNA TER SPECIMEN Performed By: #### L 400.0001 ####[facility] [address] [place], [address] Mucus Ql (Urine sed) 0 SEEN Normal [facility] Comment on above: Order Comment: LORNA TER SPECIMEN Performed By: #### L 400.0001 ####[facility] [address] [place], [place], [address] Urine clarityOrdered By: Dona Casiano on 05-11-2025 Clarity (U) Clear Clear [facility] Urine color determinationOrd ered By: Sourav Casiano on 05-11-2025 Color (U) Yellow Yellow [facility] Urine glucose detectionOrder ed By: Sourav Casiano on 05-11-2025 Glucose Ql (U) Normal mg/dl Normal [facility] Urine leukocyte esterase det ection by dipstickOrdered By: Sourav Casiano on 05-11-2025 Leukocyte esterase Test strip Ql (U) Negative Negative [facility] Urine pHOrdered By: Sourav Kim on 05-11-2025 pH (U) 5.0 [pH] 5.0 - 8.0 [facility] Urine sediment bacteria coun t by microscopy (number/high power field)Ordered By: Sourav Casiano on 05-11-2025 Bacteria LM.HPF (Urine sed) [#/Area] 2 /[HPF] None Seen [facility] Urine specific gravity measu rementOrdered By: Sourav Casiano on 05-11-2025 Specific gravity (U) [Rel density] 1.020 1.002-1.03 0 [facility] Urine urobilinogen measureme ntOrdered By: Sourav Casiano on 05-11-2025 Urobilinogen Ql (U) Normal mg/dl Normal [facility] White blood cell countOrdere d By: Sourav Casiano on 05-11-2025 White blood cell count 0-5 SEEN /hpf 0-5 [facility] 12 Lead EKGon 05-10-2025 12 Lead EKG Normal [facility] Bedside Glucoseon 05-10-2025 FINGERSTICK GLU 158 mg/dL High 74-106 [facility] Comment on above: Result Comment: CHRISTIAN GEMENT OF PATIENT CARE PER NURSING PROTOCOL Performed By: #### L 501.080 ####[facility] [address] [place], [address] Blood cultureOrdered By: Dona Casiano on 05-10-2025 Bacteria identified Cx Nom (Bld) No growth in 5 days. [facility] Blood manual differential co mment interpretation (narrative result)Ordered By: Sourav Casiano on 05-10-2025 Manual differential comment Antonino (Bld) [Interp] SCANNED [facility] CBC W/Diff, Automatedon 04-27 PLT EST SLT DEC Normal ADEQ [facility] Comment on above: Performed By: #### L 100.0100 ####[facility] [address] [place], [address] SMEAR COMMENT SCANNED Normal [facility] Comment on above: Performed By: #### L 100.0100 ####[facility] [address] [place], [address] HH, Hemoglobin AND Hematocri ton 05-10-2025 Hematocrit (Bld) [Volume fraction] 23.4 % Low 37-47 [facility] Comment on above: Performed By: #### L 100.0600 ####[facility] [address] [place], [address] Hemoglobin (Bld) [Mass/Vol] 8.0 g/dL Low 12.0-15.0 [facility] Comment on above: Performed By: #### L 100.0600 ####[facility] [address] [place], [address] L499.0042on 05-10-2025 Trop T High Sen 36 ng/L High <=14 [facility] Comment on above: Performed By: #### L 499.0042 ####[facility] [address] [place], [address] L499.0043on 05-10-2025 Trop T High Sen 34 ng/L High <=14 [facility] Comment on above: Order Comment: PEARL 2 HR AN HORU LATE Performed By: #### L 499.0043 ####[facility] [address] [place], [address] L501.4021on 05-10-2025 Trop T High Sen 36 ng/L High <=14 [facility] Comment on above: Performed By: #### L 501.4021 ####[facility] [address] [place], [address] Platelet estimateOrdered By: Sourav Casiano on 05-10-2025 Platelets LM Ql (Bld) SLT DEC ADEQ [facility] STROKE Brain/Head without Co nton 05-10-2025 STROKE Brain/Head without Cont Normal [facility] STROKE CTA Head AND Neck W/C onon 05-10-2025 STROKE CTA Head AND Neck W/Con Normal [facility] Troponin T.cardiac [Mass/vol ume] in Serum or Plasma by High sensitivity methodOrdered By: Sourav Casiano on 05-10-2025 Troponin T.cardiac High sensitivity method [Mass/Vol] 34 ng/L High <14 [facility] Troponin T.cardiac High sensitivity method [Mass/Vol] 36 ng/L High <14 [facility] Troponin T.cardiac High sensitivity method [Mass/Vol] 36 ng/L High <14 [facility] CBC-Complete Blood Cnt No Di ffon 05-09-2025 Erythrocyte distribution width (RBC) [Ratio] 13.7 % Normal 11.6-14.6 [facility] Comment on above: Order Comment: Comme nts: To be done in PACU Performed By: #### L 100.0500 ####[facility] [address] [place], [address] Hematocrit (Bld) [Volume fraction] 27.9 % Low 37-47 [facility] Comment on above: Order Comment: Comme nts: To be done in PACU Performed By: #### L 100.0500 ####[facility] [address] [place], [address] Hemoglobin (Bld) [Mass/Vol] 9.2 g/dL Low 12.0-15.0 [facility] Comment on above: Order Comment: Comme nts: To be done in PACU Performed By: #### L 100.0500 ####[facility] [address] [place], [address] MCH (RBC) [Entitic mass] 30.5 pg Normal 27.0-32.0 [facility] Comment on above: Order Comment: Comme nts: To be done in PACU Performed By: #### L 100.0500 ####[facility] [address] [place], [address] MCHC (RBC) [Mass/Vol] 33.0 g/dL Normal 32-36 [facility] Comment on above: Order Comment: Comme nts: To be done in PACU Performed By: #### L 100.0500 ####[facility] [address] [place], [address] MCV (RBC) [Entitic vol] 92.4 fL Normal 81-99 [facility] Comment on above: Order Comment: Comme nts: To be done in PACU Performed By: #### L 100.0500 ####[facility] [address] [place], [address] Platelet mean volume (Bld) [Entitic vol] 11.1 fL Normal 6.2-12.0 [facility] Comment on above: Order Comment: Comme nts: To be done in PACU Performed By: #### L 100.0500 ####[facility] [address] [place], [address] Platelets (Bld) [#/Vol] 116 10*3/uL Low 150-450 [facility] Comment on above: Order Comment: Comme nts: To be done in PACU Performed By: #### L 100.0500 ####[facility] [address] [place], [address] RBC (Bld) [#/Vol] 3.02 10*6/uL Low 4.2-5.4 [facility] Comment on above: Order Comment: Comme nts: To be done in PACU Performed By: #### L 100.0500 ####[facility] [address] [place], [address] RDW SD 46.4 fl High 35.1-43.9 [facility] Comment on above: Order Comment: Comme nts: To be done in PACU Performed By: #### L 100.0500 ####[facility] [address] [place], [address] WBC (Bld) [#/Vol] 9.0 10*3/uL Normal 4.4-11.0 [facility] Comment on above: Order Comment: Comme nts: To be done in PACU Performed By: #### L 100.0500 ####[facility] [address] [place], [address] Femur Min 2 Viewson 05-09-20 25 Femur Min 2 Views Normal [facility] HH, Hemoglobin AND Hematocri ton 05-09-2025 Hematocrit (Bld) [Volume fraction] 25.3 % Low 37-47 [facility] Comment on above: Performed By: #### L 100.0600 ####[facility] [address] [place], [address] Hemoglobin (Bld) [Mass/Vol] 8.5 g/dL Low 12.0-15.0 [facility] Comment on above: Performed By: #### L 100.0600 ####[facility] [address] [place], [address] MR/POSTOP.ANEon 05-09-2025 MR/POSTOP.ANE Normal [facility] MR/EUVSLQDZ9nb 05-09-2025 MR/POSTOPAN2 Normal [facility] Operative Reporton Operative Report Normal [facility] 12 Lead EKGon 05-08-2025 12 Lead EKG Normal [facility] Basic Metabolic Profile (BMP )on 05-08-2025 BUN/CRE 35.2 RATIO High 10-20 [facility] Comment on above: Performed By: #### L 300.3900, L500.2500 ####[facility] [address] [place], [address] Calcium [Mass/Vol] 9.0 mg/dL Normal 7.6-11.0 [facility] Comment on above: Performed By: #### L 300.3900, L500.2500 ####[facility] [address] [place], [address] Chloride [Moles/Vol] 105 mmol/L Normal 98-108 [facility] Comment on above: Performed By: #### L 300.3900, L500.2500 ####[facility] [address] [place], [address] CO2 [Moles/Vol] 21.1 mmol/L Normal 21.0-32.0 [facility] Comment on above: Performed By: #### L 300.3900, L500.2500 ####[facility] [address] [place], [address] Creatinine [Mass/Vol] 1.09 mg/dL Normal 0.70-1.20 [facility] Comment on above: Performed By: #### L 300.3900, L500.2500 ####[facility] [address] [place], [address] ECRCL 37.62 ml/min Low 50-250 [facility] Comment on above: Performed By: #### L 300.3900, L500.2500 ####[facility] [address] [place], [address] GAP 12 Normal 5-15 [facility] Comment on above: Performed By: #### L 300.3900, L500.2500 ####[facility] [address] [place], [address] GFR/1.73 sq M.predicted among non-blacks MDRD (S/P/Bld) [Vol rate/Area] 49 mL/min/{1.73_m2} Low >60 [facility] Comment on above: Result Comment: mL/m in/1.73m2 CKD-EPI Creatinine Equation (2020) Performed By: #### L 300.3900, L500.2500 ####[facility] [address] [place], [address] Glucose [Mass/Vol] 153 mg/dL High 70-99 [facility] Comment on above: Performed By: #### L 300.3900, L500.2500 ####[facility] [address] [place], [address] Potassium [Moles/Vol] 4.0 mmol/L Normal 3.3-5.1 [facility] Comment on above: Performed By: #### L 300.3900, L500.2500 ####[facility] [address] [place], [address] Sodium [Moles/Vol] 138 mmol/L Normal 133-145 [facility] Comment on above: Performed By: #### L 300.3900, L500.2500 ####[facility] [address] [place], [address] Urea nitrogen [Mass/Vol] 38 mg/dL High 4-19 [facility] Comment on above: Performed By: #### L 300.3900, L500.2500 ####[facility] [address] [place], [address] CBC W/Diff, Automatedon 04-27 2-2024 Absolute Lymph 1.35 X10 3/uL Normal 0.83-4.51 [facility] Comment on above: Performed By: #### L 100.0100 ####[facility] [address] [place], [address] Absolute Neut 6.5 X10 3/uL Normal 2.0-7.7 [facility] Comment on above: Performed By: #### L 100.0100 ####[facility] [address] [place], [address] Basophils/100 WBC (Bld) 0.2 % Normal 0-1 [facility] Comment on above: Performed By: #### L 100.0100 ####[facility] [address] [place], [address] Eosinophils/100 WBC (Bld) 0.2 % Normal 0-5 [facility] Comment on above: Performed By: #### L 100.0100 ####[facility] [address] [place], [address] Erythrocyte distribution width (RBC) [Ratio] 13.4 % Normal 11.6-14.6 [facility] Comment on above: Performed By: #### L 100.0100 ####[facility] [address] [place], [address] Hematocrit (Bld) [Volume fraction] 28.0 % Low 37-47 [facility] Comment on above: Performed By: #### L 100.0100 ####[facility] [address] [place], [address] Hemoglobin (Bld) [Mass/Vol] 9.5 g/dL Low 12.0-15.0 [facility] Comment on above: Performed By: #### L 100.0100 ####[facility] [address] [place], [address] IG% 0.100 Normal 0.0-0.9 [facility] Comment on above: Result Comment: IG% - Immature Granulocytes (promyelocytes, myelocytes andmetamyelocytes) > 1% indicates that a LEFT SHIFT is Present. Performed By: #### L 100.0100 ####[facility] [address] [place], [address] Lymphocytes/100 WBC (Bld) 15.4 % Low 19-41 [facility] Comment on above: Performed By: #### L 100.0100 ####[facility] [address] [place], [address] MCH (RBC) [Entitic mass] 31.1 pg Normal 27.0-32.0 [facility] Comment on above: Performed By: #### L 100.0100 ####[facility] [address] [place], [address] MCHC (RBC) [Mass/Vol] 33.9 g/dL Normal 32-36 [facility] Comment on above: Performed By: #### L 100.0100 ####[facility] [address] [place], [address] MCV (RBC) [Entitic vol] 91.8 fL Normal 81-99 [facility] Comment on above: Performed By: #### L 100.0100 ####[facility] [address] [place], [address] Monocytes/100 WBC (Bld) 10.2 % High 0-10 [facility] Comment on above: Performed By: #### L 100.0100 ####[facility] [address] [place], [address] Neutrophils/100 WBC (Bld) 73.9 % High 47-70 [facility] Comment on above: Performed By: #### L 100.0100 ####[facility] [address] [place], [address] Nucleated RBC (Bld) [#/Vol] 0 10*3/uL Normal 0-5 [facility] Comment on above: Performed By: #### L 100.0100 ####[facility] [address] [place], [address] Platelet mean volume (Bld) [Entitic vol] 10.7 fL Normal 6.2-12.0 [facility] Comment on above: Performed By: #### L 100.0100 ####[facility] [address] [place], [address] Platelets (Bld) [#/Vol] 152 10*3/uL Normal 150-450 [facility] Comment on above: Performed By: #### L 100.0100 ####[facility] [address] [place], [address] RBC (Bld) [#/Vol] 3.05 10*6/uL Low 4.2-5.4 [facility] Comment on above: Performed By: #### L 100.0100 ####[facility] [address] [place], [address] RDW SD 45.3 fl High 35.1-43.9 [facility] Comment on above: Performed By: #### L 100.0100 ####[facility] [address] [place], [address] WBC (Bld) [#/Vol] 8.8 10*3/uL Normal 4.4-11.0 [facility] Comment on above: Performed By: #### L 100.0100 ####[facility] [address] [place], [address] International normalized rat io (INR) calculationOrdered By: Jim Jones on 05-08-2025 INR Coag (Bld) [Relative time] 1.2 {INR} [facility] Prothrombin Time w/INRon INR Coag (PPP) [Relative time] 1.2 {INR} Normal [facility] Comment on above: Performed By: #### L 300.3900, L500.2500 ####[facility] [address] [place], [address] PT Coag (PPP) [Time] 15.5 s High 11.7-14.9 [facility] Comment on above: Performed By: #### L 300.3900, L500.2500 ####[facility] [address] [place], [address] Prothrombin timeOrdered By: Jim Jones on 05-08-2025 PT Coag (PPP) [Time] 15.5 s High 11.7-14.9 [facility] Absolute lymphocyte countOrd ered By: José Manuel Guzman on 05-07-2025 Lymphocytes Auto (Unsp spec) [#/Vol] 1.48 10*3/uL 0.83-4.51 [facility] Absolute neutrophil countOrd ered By: José Manuel Guzman on 05-07-2025 Neutrophils (Bld) [#/Vol] 8.8 10*3/uL High 2.0-7.7 [facility] Anion gap in Serum or Plasma Ordered By: José Manuel Guzman on 05-07-2025 Anion gap [Moles/Vol] 10 mmol/L 5-15 [facility] Automated lymphocyte count a s percentage of total leukocytesOrdered By: José Manuel Guzman on 05-07-2025 Lymphocytes/100 WBC Auto (Unsp spec) 13.4 % Low 19-41 [facility] BRCon 05-07-2025 RC Normal [facility] Comment on above: Result Comment: [id number] ABP RC NOT [id number] ABP RC PRSMD TRFSD 05/09/25 0836 Performed By: #### B ####[facility] [address] [place], [address] BUN/creatinine ratioOrdered By: José Manuel Guzman on 05-07-2025 Urea nitrogen/Creatinine [Mass ratio] 24.8 mg/mg High - [facility] Basic Metabolic Profile (BMP )on 05-07-2025 BUN/CRE 24.8 RATIO High - [facility] Comment on above: Performed By: #### L 500.2500, L100.0100 ####[facility] [address] [place], [address] Calcium [Mass/Vol] 9.2 mg/dL Normal 7.6-11.0 [facility] Comment on above: Performed By: #### L 500.2500, L100.0100 ####[facility] [address] [place], [address] Chloride [Moles/Vol] 103 mmol/L Normal 98-108 [facility] Comment on above: Performed By: #### L 500.2500, L100.0100 ####[facility] [address] [place], [address] CO2 [Moles/Vol] 24.3 mmol/L Normal 21.0-32.0 [facility] Comment on above: Performed By: #### L 500.2500, L100.0100 ####[facility] [address] [place], [address] Creatinine [Mass/Vol] 0.92 mg/dL Normal 0.70-1.20 [facility] Comment on above: Performed By: #### L 500.2500, L100.0100 ####[facility] [address] [place], [address] GAP 10 Normal 5-15 [facility] Comment on above: Performed By: #### L 500.2500, L100.0100 ####[facility] [address] [place], [address] GFR/1.73 sq M.predicted among non-blacks MDRD (S/P/Bld) [Vol rate/Area] 61 mL/min/{1.73_m2} Normal >60 [facility] Comment on above: Result Comment: mL/m in/1.73m2 CKD-EPI Creatinine Equation (2020) Performed By: #### L 500.2500, L100.0100 ####[facility] [address] [place], [address] Glucose [Mass/Vol] 143 mg/dL High 70-99 [facility] Comment on above: Performed By: #### L 500.2500, L100.0100 ####[facility] [address] [place], [address] Potassium [Moles/Vol] 4.0 mmol/L Normal 3.3-5.1 [facility] Comment on above: Result Comment: Hemo lysis present, Results??could be affected.?? Performed By: #### L 500.2500, L100.0100 ####[facility] [address] [place], [address] Sodium [Moles/Vol] 137 mmol/L Normal 133-145 [facility] Comment on above: Performed By: #### L 500.2500, L100.0100 ####[facility] [address] [place], [address] Urea nitrogen [Mass/Vol] 23 mg/dL High 4-19 [facility] Comment on above: Performed By: #### L 500.2500, L100.0100 ####[facility] [address] [place], [address] Basophil percentageOrdered B y: José Manuel Guzman on 05-07-2025 Basophils/100 WBC (Bld) 0.4 % 0-1 [facility] CBC W/Diff, Automatedon 04-27-2024 Absolute Lymph 1.48 X10 3/uL Normal 0.83-4.51 [facility] Comment on above: Performed By: #### L 500.2500, L100.0100 ####[facility] [address] [place], [address] Absolute Neut 8.8 X10 3/uL High 2.0-7.7 [facility] Comment on above: Performed By: #### L 500.2500, L100.0100 ####[facility] [address] [place], [address] Basophils/100 WBC (Bld) 0.4 % Normal 0-1 [facility] Comment on above: Performed By: #### L 500.2500, L100.0100 ####[facility] [address] [place], [address] Eosinophils/100 WBC (Bld) 1.4 % Normal 0-5 [facility] Comment on above: Performed By: #### L 500.2500, L100.0100 ####[facility] [address] [place], [address] Erythrocyte distribution width (RBC) [Ratio] 13.0 % Normal 11.6-14.6 [facility] Comment on above: Performed By: #### L 500.2500, L100.0100 ####[facility] [address] [place], [address] Hematocrit (Bld) [Volume fraction] 36.8 % Low 37-47 [facility] Comment on above: Performed By: #### L 500.2500, L100.0100 ####[facility] [address] [place], [address] Hemoglobin (Bld) [Mass/Vol] 12.3 g/dL Normal 12.0-15.0 [facility] Comment on above: Performed By: #### L 500.2500, L100.0100 ####[facility] [address] [place], [address] IG% 0.400 Normal 0.0-0.9 [facility] Comment on above: Result Comment: IG% - Immature Granulocytes (promyelocytes, myelocytes andmetamyelocytes) > 1% indicates that a LEFT SHIFT is Present. Performed By: #### L 500.2500, L100.0100 ####[facility] [address] [place], [address] Lymphocytes/100 WBC (Bld) 13.4 % Low 19-41 [facility] Comment on above: Performed By: #### L 500.2500, L100.0100 ####[facility] [address] [place], [address] MCH (RBC) [Entitic mass] 30.7 pg Normal 27.0-32.0 [facility] Comment on above: Performed By: #### L 500.2500, L100.0100 ####[facility] [address] [place], [address] MCHC (RBC) [Mass/Vol] 33.4 g/dL Normal 32-36 [facility] Comment on above: Performed By: #### L 500.2500, L100.0100 ####[facility] [address] [place], [address] MCV (RBC) [Entitic vol] 91.8 fL Normal 81-99 [facility] Comment on above: Performed By: #### L 500.2500, L100.0100 ####[facility] [address] [place], [address] Monocytes/100 WBC (Bld) 4.8 % Normal 0-10 [facility] Comment on above: Performed By: #### L 500.2500, L100.0100 ####[facility] [address] [place], [address] Neutrophils/100 WBC (Bld) 79.6 % High 47-70 [facility] Comment on above: Performed By: #### L 500.2500, L100.0100 ####[facility] [address] [place], [address] Nucleated RBC (Bld) [#/Vol] 0 10*3/uL Normal 0-5 [facility] Comment on above: Performed By: #### L 500.2500, L100.0100 ####[facility] [address] [place], [address] Platelet mean volume (Bld) [Entitic vol] 10.2 fL Normal 6.2-12.0 [facility] Comment on above: Performed By: #### L 500.2500, L100.0100 ####[facility] [address] [place], [address] Platelets (Bld) [#/Vol] 144 10*3/uL Low 150-450 [facility] Comment on above: Performed By: #### L 500.2500, L100.0100 ####[facility] [address] [place], [address] RBC (Bld) [#/Vol] 4.01 10*6/uL Low 4.2-5.4 [facility] Comment on above: Performed By: #### L 500.2500, L100.0100 ####[facility] [address] [place], [address] RDW SD 43.8 fl Normal 35.1-43.9 [facility] Comment on above: Performed By: #### L 500.2500, L100.0100 ####[facility] [address] [place], [address] WBC (Bld) [#/Vol] 11.0 10*3/uL Normal 4.4-11.0 [facility] Comment on above: Performed By: #### L 500.2500, L100.0100 ####[facility] [address] [place], [address] Carbon dioxide, total [Moles /volume] in Central venous bloodOrdered By: José Manuel Guzman on 05-07-2025 CO2 [Moles/Vol] 24.3 mmol/L 21.0-32.0 [facility] Chloride assayOrdered By: Ruddy Guzman on 05-07-2025 Chloride [Moles/Vol] 103 mmol/L 98-108 [facility] Consultation - Orthopedicson 05-07-2025 Consultation - Orthopedics Normal [facility] Emergency Department Summary on 05-07-2025 Emergency Department Summary Normal [facility] Eosinophil percentageOrdered By: José Manuel Guzman on 05-07-2025 Eosinophils/100 WBC (Bld) 1.4 % 0-5 [facility] Erythrocyte distribution wid th ratioOrdered By: José Manuel Thomas on 05-07-2025 Erythrocyte distribution width (RBC) [Ratio] 13.0 % 11.6-14.6 [facility] Erythrocyte distribution wid th standard deviationOrdered By: José Manuel Lucía Morejon on 05-07-2025 Erythrocyte distribution width (RBC) [Ratio] 43.8 fl 35.1-43.9 [facility] Femur Min 2 Viewson 05-07-20 25 Femur Min 2 Views Normal [facility] Glomerular filtration rate ( GFR) estimation/1.73 sq m using serum, plasma, or whole bOrdered By: José Manuel Guzman on 05-07-2025 GFR/1.73 sq M.predicted among non-blacks MDRD (S/P/Bld) [Vol rate/Area] 61 mL/min/{1.73_m2} >60 [facility] Comment on above: mL/min/1.73m2 CKD-EP I Creatinine Equation (2020) H AND P Exam - Hospitaliston 05-07-2025 H&P Exam - Hospitalist Normal [facility] Hematocrit Auto (Bld) [Volum e fraction]Ordered By: Jsoé Manuel Guzman on 05-07-2025 Hematocrit (Bld) [Volume fraction] 36.8 % Low 37-47 [facility] Hemoglobin measurementOrdere d By: José Manuel Guzman on 05-07-2025 Hemoglobin (Bld) [Mass/Vol] 12.3 g/dL 12.0-15.0 [facility] Immature granulocytes/100 WB C Auto (Bld)Ordered By: José Manuel Guzman on 05-07-2025 Immature granulocytes/100 WBC (Bld) 0.400 % 0.0-0.9 [facility] Comment on above: IG% - Immature Granu locytes (promyelocytes, myelocytes and metamyelocytes) > 1% indicates that a LEFT SHIFT is Present. MCV (mean corpuscular volume ) determinationOrdered By: José Manuel Guzman on 05-07-2025 MCV (RBC) [Entitic vol] 91.8 fL 81-99 [facility] Mean corpuscular hemoglobin (MCH) determinationOrdered By: Seville Thomas on 05-07-2025 MCH (RBC) [Entitic mass] 30.7 pg 27.0-32.0 [facility] Mean corpuscular hemoglobin concentration (MCHC) determinationOrdered By: José Manuelbabs Guzman on 05-07-2025 MCHC (RBC) [Mass/Vol] 33.4 g/dL 32-36 [facility] Mean platelet volume determi nationOrdered By: José Manuel Guzman on 05-07-2025 Platelet mean volume (Bld) [Entitic vol] 10.2 fL 6.2-12.0 [facility] Monocyte percentageOrdered B y: José Manuel Guzman on 05-07-2025 Monocytes/100 WBC (Bld) 4.8 % 0-10 [facility] Neutrophil percentageOrdered By: José Manuel Guzman on 05-07-2025 Neutrophils/100 WBC (Bld) 79.6 % High 47-70 [facility] Nucleated red blood cell per centageOrdered By: José Manuel Guzman on 05-07-2025 Nucleated RBC/100 WBC (Bld) [Ratio] 0 % 0-5 [facility] Pelvis 1 or 2 Viewson 2024 Pelvis 1 or 2 Views Normal [facility] Platelet countOrdered By: Ruddy Guzman on 05-07-2025 Platelets (Bld) [#/Vol] 144 10*3/uL Low 150-450 [facility] Potassium measurement (mass/ volume)Ordered By: José Manuel Guzman on 05-07-2025 Potassium (Unsp spec) [Mass/Vol] 4.0 mmol/L 3.3-5.1 [facility] Comment on above: Hemolysis present, R esults could be affected. RBC Auto (Bld) [#/Vol]Ordere d By: José Manuel Guzman on 05-07-2025 RBC (Bld) [#/Vol] 4.01 10*6/uL Low 4.2-5.4 [facility] Serum creatinine measurement (mass/volume)Ordered By: José Manuel Guzman on 05-07-2025 Creatinine [Mass/Vol] 0.92 mg/dL 0.70-1.20 [facility] Serum glucose measurement (m ass/volume)Ordered By: José Manuel Guzman on 05-07-2025 Glucose [Mass/Vol] 143 mg/dL High 70-99 [facility] Serum or plasma calcium susy urement (mass/volume)Ordered By: José Manuel Morejon on 05-07-2025 Calcium [Mass/Vol] 9.2 mg/dL 7.6-11.0 [facility] Serum or plasma urea nitroge n measurement (mass/volume)Ordered By: José Manuel Guzman on 05-07-2025 Urea nitrogen [Mass/Vol] 23 mg/dL High 4-19 [facility] Sodium levelOrdered By: Kartik Guzman on 05-07-2025 Sodium [Moles/Vol] 137 mmol/L 133-145 [facility] Type AND Screenon 05-07-2025 Ab SCREEN GEL Negative Normal [facility] Comment on above: Order Comment: S Performed By: #### B TS ####[facility] [address] [place], [address] White blood cell (WBC) count Ordered By: José Manuel Guzman on 05-07-2025 WBC (Bld) [#/Vol] 11.0 10*3/uL 4.4-11.0 [facility] No Panel InformationOrdered By: Leighton Carrillo on 04-11-2025 [facility] [address] [place] [address] CR - Individual Treatment Plan MR#: [id number] Acct: [id number] Name: GOGO WARE p #:[id number] : 1940 85 From: Leighton Martinez BS, RVT PCP: Dr. Eh Huddleston MD DOS: Exercise - Initial Assessment Physician Prescribed Exercise Modalities: Treadmill, SciFit Stepper and SciFit Pro-II Ergometer Nutrition - Initial Assessment Weight Mgt (Other Care) Height: 5 ft 5.5 in Weight:: 172 lb BMI: 28.1 Psychosocial - Initial Assess Target Goals Target Goals Referral to Behavioral Health PS - Interventions: Yes: Attend Stress Management Classes Patient Health Questionnaire PHQ-9 Screening 90-Day Re-eval Assessment: 1. Little interest or pleasure in doing things: Nearly every day 2. Feeling down, depressed, or hopeless: More than half the days 3. Trouble falling or staying asleep, or sleeping too much: Nearly every day 4. Feeling tired or having little energy: Nearly every day 5. Poor appetite or overeating: Not at all 6. Feeling bad about yourself -- or that you are a failure or have let yourself or your family down: Not at all 7. Trouble concentrating on things, such as reading the newspaper or watching television: Not at all 8. Moving or speaking so slowly that other people could have noticed. Or the opposite - being so fidgety or restless that you have been moving around a lot more than usual: Not at all 9. Thoughts that you would be better off , or of hurting yourself in some way: Not at all How difficult have these problems made it for you to do your work, take care of things at home, or get along with other people?: Not difficult at all Total Score: 11 Self-Efficacy 6-Item Scale 90-Day Re-eval Assessment: We would like to know how confident you are in doing certain activities. Please select your confidence level for: Fatigue Select Number: 10 Physical Discomfort or Pain Select Number: 10 Emotional Distress Select Number: 10 Other Symptoms or Health Problems Select Number: 10 Different Tasks and Activities Select Number: 10 Medication Select Number: 10 Total Score:: 10 Nutrition Survey Nutrition Survey Instructions Scoring Instructions Exercise - 30-day Assessment Physician Prescribed Exercise Modalities: Treadmill, SciFit Stepper and SciFit Pro-II Ergometer Exercise - 60-day Assessment Physician Prescribed Exercise Modalities: Treadmill, SciFit Stepper and SciFit Pro-II Ergometer Exercise - 90-day Assessment Visit Date of Eval: 04/07/25 Session #:: 27 Physician Prescribed Exercise Modalities: Treadmill, SciFit Stepper and SciFit Pro-II Ergometer Frequency: 3x/week for 12 weeks [36 sessions] Intensity: 60-80% of age predicted maximum heart rate reserve Duration: 30 - 45 minutes Current METSs:: 5.8 Target Heart Rate:: 81-101 Current RPE:: 13 Maximum Excercise HR:: 89 Resting Blood Pressure: 154/70 Maximum Exercise Blood Pressure: 180/80 EKG Type: NSR w/ 1st degree block, incomplete BBB with occas PAC Outcomes & Goals Goals:: Verbalizes understanding of THR, RPE & goal METS by session 6, Documentsin home exercise log/reports 30 min aerobic 5 day/wk by DC, Demonstrates accurate pulse taking by DC and Other additional outcome/goals: see below Intervention & Plan Exercise Program Goals: Instruct on personal THR & RPE, Instruct on MET level & personal MET goal, Show patient to take own pulse /validate performance until accurate, Instruct on home exercise and Other additional plan/int Physical Activity Home Exercise Physical Activity - Home Exercise: Safe Exercise, Warm-up, Self-monitoring, Cool-Down, Home Exercise > 30 min Daily and Sitting Time <3 hours/daily Outcomes & Goals Outcomes/Goals: Demonstrates correct Warm-up/exercise Cool-Down (S3) if = 2.5 METs, Verbalizes symptoms of exercise intolerance by Session 3 (S3), Demonstratesafe equipment use (S3) & follows exercise prescrition (6) and Other: See below Intervention & Plan Plan/Intervention: Instruct warm-up & cool-down if exercising at > 2 METs, Instruct on symptoms of exercise intolerance & actions to take, Instruct & monitor on saf, Assess intial functional capacity & safety risk and Other See below 30-day Reassessments 30 day Reassessments:: Progressing Reassessment Notes & Comments:: Pt has been able to increase her exercise intensity to 5.8 METS. Will continue to increase as tolerated. Will continue to encourage pt. Exercise - Final/Discharge Physician Prescribed Exercise Modalities: Treadmill, SciFit Stepper and SciFit Pro-II Ergometer Nutrition - 30-Day Assessment Weight Mgt (Other Care) Height: 5 ft 5.5 in Weight:: 172 lb BMI: 28.1 Nutrition - 60-Day Assessment Weight Mgt (Other Care) Height: 5 ft 5.5 in Weight:: 172 lb BMI: 28.1 Core - 30-Day Assessment Hypertension [employer] Hypertension Guidelines Reassessment Notes & Comments:: Pt and staff working with dermatology physician assistant to optimize BP's Core - Final Assessment Hypertension [employer] Hy (more content not included)... [facility] Absolute lymphocyte countOrd ered By: Eh Huddleston on 03-31-2025 Lymphocytes Auto (Unsp spec) [#/Vol] 1.39 10*3/uL 0.83-4.51 [facility] Absolute neutrophil countOrd ered By: Eh Huddleston on 03-31-2025 Neutrophils (Bld) [#/Vol] 2.9 10*3/uL 2.0-7.7 [facility] Anion gap in Serum or Plasma Ordered By: Eh Huddleston on 03-31-2025 Anion gap [Moles/Vol] 12 mmol/L 5-15 [facility] Automated lymphocyte count a s percentage of total leukocytesOrdered By: Eh Huddleston on 03-31-2025 Lymphocytes/100 WBC Auto (Unsp spec) 28.9 % 19-41 [facility] BUN/creatinine ratioOrdered By: Eh Huddleston on 03-31-2025 Urea nitrogen/Creatinine [Mass ratio] 23.5 mg/mg High 10-20 [facility] Basophil percentageOrdered B y: Eh Huddleston on 03-31-2025 Basophils/100 WBC (Bld) 0.6 % 0-1 [facility] Bilirubin, totalOrdered By: Eh Huddleston on 03-31-2025 Bilirubin [Mass/Vol] 0.44 mg/dL 0.00-1.30 [facility] CBC W/Diff, Automatedon Absolute Lymph 1.39 X10 3/uL Normal 0.83-4.51 [facility] Comment on above: Performed By: #### L 501.9520, L506.1001, L100.0100, L500.4050, L500.4100 ####[facility] [address] [place], [address] Absolute Neut 2.9 X10 3/uL Normal 2.0-7.7 [facility] Comment on above: Performed By: #### L 501.9520, L506.1001, L100.0100, L500.4050, L500.4100 ####[facility] [address] [place], [address] Basophils/100 WBC (Bld) 0.6 % Normal 0-1 [facility] Comment on above: Performed By: #### L 501.9520, L506.1001, L100.0100, L500.4050, L500.4100 ####[facility] [address] [place], [address] Eosinophils/100 WBC (Bld) 1.5 % Normal 0-5 [facility] Comment on above: Performed By: #### L 501.9520, L506.1001, L100.0100, L500.4050, L500.4100 ####[facility] [address] [place], [address] Erythrocyte distribution width (RBC) [Ratio] 13.4 % Normal 11.6-14.6 [facility] Comment on above: Performed By: #### L 501.9520, L506.1001, L100.0100, L500.4050, L500.4100 ####[facility] [address] [place], [address] Hematocrit (Bld) [Volume fraction] 36.4 % Low 37-47 [facility] Comment on above: Performed By: #### L 501.9520, L506.1001, L100.0100, L500.4050, L500.4100 ####[facility] [address] [place], [address] Hemoglobin (Bld) [Mass/Vol] 12.2 g/dL Normal 12.0-15.0 [facility] Comment on above: Performed By: #### L 501.9520, L506.1001, L100.0100, L500.4050, L500.4100 ####[facility] [address] [place], [address] IG% 0.200 Normal 0.0-0.9 [facility] Comment on above: Result Comment: IG% - Immature Granulocytes (promyelocytes, myelocytes andmetamyelocytes) > 1% indicates that a LEFT SHIFT is Present. Performed By: #### L 501.9520, L506.1001, L100.0100, L500.4050, L500.4100 ####[facility] [address] [place], [address] Lymphocytes/100 WBC (Bld) 28.9 % Normal 19-41 [facility] Comment on above: Performed By: #### L 501.9520, L506.1001, L100.0100, L500.4050, L500.4100 ####[facility] [address] [place], [address] MCH (RBC) [Entitic mass] 30.3 pg Normal 27.0-32.0 [facility] Comment on above: Performed By: #### L 501.9520, L506.1001, L100.0100, L500.4050, L500.4100 ####[facility] [address] [place], [address] MCHC (RBC) [Mass/Vol] 33.5 g/dL Normal 32-36 [facility] Comment on above: Performed By: #### L 501.9520, L506.1001, L100.0100, L500.4050, L500.4100 ####[facility] [address] [place], [address] MCV (RBC) [Entitic vol] 90.3 fL Normal 81-99 [facility] Comment on above: Performed By: #### L 501.9520, L506.1001, L100.0100, L500.4050, L500.4100 ####[facility] [address] [place], [address] Monocytes/100 WBC (Bld) 8.7 % Normal 0-10 [facility] Comment on above: Performed By: #### L 501.9520, L506.1001, L100.0100, L500.4050, L500.4100 ####[facility] [address] [place], [address] Neutrophils/100 WBC (Bld) 60.1 % Normal 47-70 [facility] Comment on above: Performed By: #### L 501.9520, L506.1001, L100.0100, L500.4050, L500.4100 ####[facility] [address] [place], [address] Nucleated RBC (Bld) [#/Vol] 0 10*3/uL Normal 0-5 [facility] Comment on above: Performed By: #### L 501.9520, L506.1001, L100.0100, L500.4050, L500.4100 ####[facility] [address] [place], [address] Platelet mean volume (Bld) [Entitic vol] 11.0 fL Normal 6.2-12.0 [facility] Comment on above: Performed By: #### L 501.9520, L506.1001, L100.0100, L500.4050, L500.4100 ####[facility] [address] [place], [address] Platelets (Bld) [#/Vol] 162 10*3/uL Normal 150-450 [facility] Comment on above: Performed By: #### L 501.9520, L506.1001, L100.0100, L500.4050, L500.4100 ####[facility] [address] [place], [address] RBC (Bld) [#/Vol] 4.03 10*6/uL Low 4.2-5.4 [facility] Comment on above: Performed By: #### L 501.9520, L506.1001, L100.0100, L500.4050, L500.4100 ####[facility] [address] [place], [address] RDW SD 44.7 fl High 35.1-43.9 [facility] Comment on above: Performed By: #### L 501.9520, L506.1001, L100.0100, L500.4050, L500.4100 ####[facility] [address] [place], [address] WBC (Bld) [#/Vol] 4.8 10*3/uL Normal 4.4-11.0 [facility] Comment on above: Performed By: #### L 501.9520, L506.1001, L100.0100, L500.4050, L500.4100 ####[facility] [address] [place], [address] Calculated very low density lipoprotein (VLDL) cholesterol measurementOrdered By: Eh Huddleston on 03-31-2025 Calculated very low density lipoprotein (VLDL) cholesterol measurement 16 mg/dL 5-40 [facility] Carbon dioxide, total [Moles /volume] in Central venous bloodOrdered By: Eh Huddleston on 03-31-2025 CO2 [Moles/Vol] 21.6 mmol/L 21.0-32.0 [facility] Chloride assayOrdered By: Collin Huddleston on 03-31-2025 Chloride [Moles/Vol] 105 mmol/L 98-108 [facility] Metabolic Prof ilon 03-31-2025 Albumin [Mass/Vol] 4.0 g/dL Normal 3.4-4.8 [facility] Comment on above: Performed By: #### L 501.9520, L506.1001, L100.0100, L500.4050, L500.4100 ####[facility] [address] [place], [address] Albumin/Globulin [Mass ratio] 1.4 {ratio} Normal 0.9-2.4 [facility] Comment on above: Performed By: #### L 501.9520, L506.1001, L100.0100, L500.4050, L500.4100 ####[facility] [address] [place], [address] ALK PHOS 75 U/L Normal 35-104 [facility] Comment on above: Performed By: #### L 501.9520, L506.1001, L100.0100, L500.4050, L500.4100 ####[facility] [address] [place], [address] ALT [Catalytic activity/Vol] 12 U/L Normal <=34 [facility] Comment on above: Performed By: #### L 501.9520, L506.1001, L100.0100, L500.4050, L500.4100 ####[facility] [address] [place], [address] AST [Catalytic activity/Vol] 53 U/L High <=31 [facility] Comment on above: Performed By: #### L 501.9520, L506.1001, L100.0100, L500.4050, L500.4100 ####[facility] [address] [place], [address] Bilirubin [Mass/Vol] 0.44 mg/dL Normal 0.00-1.30 [facility] Comment on above: Performed By: #### L 501.9520, L506.1001, L100.0100, L500.4050, L500.4100 ####[facility] [address] [place], [address] BUN/CRE 23.5 RATIO High 10-20 [facility] Comment on above: Performed By: #### L 501.9520, L506.1001, L100.0100, L500.4050, L500.4100 ####[facility] [address] [place], [address] Calcium [Mass/Vol] 9.5 mg/dL Normal 7.6-11.0 [facility] Comment on above: Performed By: #### L 501.9520, L506.1001, L100.0100, L500.4050, L500.4100 ####[facility] [address] [place], [address] Chloride [Moles/Vol] 105 mmol/L Normal 98-108 [facility] Comment on above: Performed By: #### L 501.9520, L506.1001, L100.0100, L500.4050, L500.4100 ####[facility] [address] [place], [address] CO2 [Moles/Vol] 21.6 mmol/L Normal 21.0-32.0 [facility] Comment on above: Performed By: #### L 501.9520, L506.1001, L100.0100, L500.4050, L500.4100 ####[facility] [address] [place], [address] Creatinine [Mass/Vol] 0.79 mg/dL Normal 0.70-1.20 [facility] Comment on above: Performed By: #### L 501.9520, L506.1001, L100.0100, L500.4050, L500.4100 ####[facility] [address] [place], [address] GAP 12 Normal 5-15 [facility] Comment on above: Performed By: #### L 501.9520, L506.1001, L100.0100, L500.4050, L500.4100 ####[facility] [address] [place], [address] GFR/1.73 sq M.predicted among non-blacks MDRD (S/P/Bld) [Vol rate/Area] 73 mL/min/{1.73_m2} Normal >60 [facility] Comment on above: Result Comment: mL/m in/1.73m2 CKD-EPI Creatinine Equation (2020) Performed By: #### L 501.9520, L506.1001, L100.0100, L500.4050, L500.4100 ####[facility] [address] [place], [address] Globulin (S) [Mass/Vol] 2.9 g/dL Normal 2.2-4.2 [facility] Comment on above: Performed By: #### L 501.9520, L506.1001, L100.0100, L500.4050, L500.4100 ####[facility] [address] [place], [address] Glucose [Mass/Vol] 99 mg/dL Normal 70-99 [facility] Comment on above: Performed By: #### L 501.9520, L506.1001, L100.0100, L500.4050, L500.4100 ####[facility] [address] [place], [address] Potassium [Moles/Vol] 4.4 mmol/L Normal 3.3-5.1 [facility] Comment on above: Performed By: #### L 501.9520, L506.1001, L100.0100, L500.4050, L500.4100 ####[facility] [address] [place], [address] Sodium [Moles/Vol] 138 mmol/L Normal 133-145 [facility] Comment on above: Performed By: #### L 501.9520, L506.1001, L100.0100, L500.4050, L500.4100 ####[facility] [address] [place], [address] T PROT 6.9 g/dL Normal 5.9-8.4 [facility] Comment on above: Performed By: #### L 501.9520, L506.1001, L100.0100, L500.4050, L500.4100 ####[facility] [address] [place], [address] Urea nitrogen [Mass/Vol] 19 mg/dL Normal 4-19 [facility] Comment on above: Performed By: #### L 501.9520, L506.1001, L100.0100, L500.4050, L500.4100 ####[facility] [address] [place], [address] Eosinophil percentageOrdered By: Eh Huddleston on 03-31-2025 Eosinophils/100 WBC (Bld) 1.5 % 0-5 [facility] Erythrocyte distribution wid th ratioOrdered By: Eh Huddleston on 03-31-2025 Erythrocyte distribution width (RBC) [Ratio] 13.4 % 11.6-14.6 [facility] Erythrocyte distribution wid th standard deviationOrdered By: Eh Huddleston on 03-31-2025 Erythrocyte distribution width (RBC) [Ratio] 44.7 fl High 35.1-43.9 [facility] Glomerular filtration rate ( GFR) estimation/1.73 sq m using serum, plasma, or whole bOrdered By: Eh Huddleston on 03-31-2025 GFR/1.73 sq M.predicted among non-blacks MDRD (S/P/Bld) [Vol rate/Area] 73 mL/min/{1.73_m2} >60 [facility] Comment on above: mL/min/1.73m2 CKD-EP I Creatinine Equation (2020) Hematocrit Auto (Bld) [Volum e fraction]Ordered By: Eh Huddleston on 03-31-2025 Hematocrit (Bld) [Volume fraction] 36.4 % Low 37-47 [facility] Hemoglobin measurementOrdere d By: Eh Huddleston on 03-31-2025 Hemoglobin (Bld) [Mass/Vol] 12.2 g/dL 12.0-15.0 [facility] Immature granulocytes/100 WB C Auto (Bld)Ordered By: Eh Huddleston on 03-31-2025 Immature granulocytes/100 WBC (Bld) 0.200 % 0.0-0.9 [facility] Comment on above: IG% - Immature Granu locytes (promyelocytes, myelocytes and metamyelocytes) > 1% indicates that a LEFT SHIFT is Present. LDL calc ser/plasOrdered By: Eh Huddleston on 03-31-2025 Cholesterol in LDL [Mass/Vol] 64 mg/dL [facility] Comment on above: Tiiqxcdgvh=914-965 m g/dL & Higher Sfwa=486 mg/dL or greater Laboratory - Chemistry and C hemistry - challengeOrdered By: Eh Huddleston on 03-31-2025 AST [Catalytic activity/Vol] 53 U/L High <32 [facility] Lipid Profileon 03-31-2025 CHOL:HDL 2.01 Normal [facility] Comment on above: Performed By: #### L 501.9520, L506.1001, L100.0100, L500.4050, L500.4100 ####[facility] [address] [place], [address] Cholesterol [Mass/Vol] 159 mg/dL Normal <=200 [facility] Comment on above: Result Comment: Chol esterol level, Desirable <200 mg/dLBorderline high cholesterol 200-239 mg/dLHigh cholesterol >=240 mg/dLRecommendations of the NCEP Adult Treatment Panel for thefollowing risk-cutoff thresholds for the [place] Americanpulation. Performed By: #### L 501.9520, L506.1001, L100.0100, L500.4050, L500.4100 ####[facility] [address] [place], [address] Cholesterol in HDL [Mass/Vol] 79 mg/dL Normal [facility] Comment on above: Result Comment: Elaine onal Cholesterol Education Program (NCEP) guidelines:<40 mg/dL: Low HDL-cholesterol (major risk factor for CHD)>= 60 mg/dL: High HDL-cholesterol (negative risk factor forCHD)HDL-cholesterol is affected by a number of factors, e.g.smoking, exercise, hormones, sex and age. Performed By: #### L 501.9520, L506.1001, L100.0100, L500.4050, L500.4100 ####[facility] [address] [place], [address] Cholesterol in LDL [Mass/Vol] 64 mg/dL Normal [facility] Comment on above: Result Comment: Bord dvkezu=304-294 mg/dL Higher Yulz=082 mg/dL or greater Performed By: #### L 501.9520, L506.1001, L100.0100, L500.4050, L500.4100 ####[facility] [address] [place], [address] Cholesterol in VLDL [Mass/Vol] 16 mg/dL Normal 5-40 [facility] Comment on above: Performed By: #### L 501.9520, L506.1001, L100.0100, L500.4050, L500.4100 ####[facility] [address] [place], [address] Triglyceride [Mass/Vol] 79 mg/dL Normal [facility] Comment on above: Result Comment: The drugs N-Acetylcysteine and Metamizole may falselydepress this assay.Normal range: <150 mg/dLBorderline High: 150-199 mg/dLHigh: 200-499 mg/dLVery High: >500 mg/dL Performed By: #### L 501.9520, L506.1001, L100.0100, L500.4050, L500.4100 ####[facility] [address] [place], [address] MCV (mean corpuscular volume ) determinationOrdered By: Eh Huddleston on 03-31-2025 MCV (RBC) [Entitic vol] 90.3 fL 81-99 [facility] Mean corpuscular hemoglobin (MCH) determinationOrdered By: Eh Huddleston on 03-31-2025 MCH (RBC) [Entitic mass] 30.3 pg 27.0-32.0 [facility] Mean corpuscular hemoglobin concentration (MCHC) determinationOrdered By: Eh Huddleston on 03-31-2025 MCHC (RBC) [Mass/Vol] 33.5 g/dL 32-36 [facility] Mean platelet volume determi nationOrdered By: Eh Huddleston on 03-31-2025 Platelet mean volume (Bld) [Entitic vol] 11.0 fL 6.2-12.0 [facility] Monocyte percentageOrdered B y: Eh Huddleston on 03-31-2025 Monocytes/100 WBC (Bld) 8.7 % 0-10 [facility] Neutrophil percentageOrdered By: Eh Huddleston on 03-31-2025 Neutrophils/100 WBC (Bld) 60.1 % 47-70 [facility] Nucleated red blood cell per centageOrdered By: Eh Huddleston on 03-31-2025 Nucleated RBC/100 WBC (Bld) [Ratio] 0 % 0-5 [facility] Platelet countOrdered By: Collin Huddleston on 03-31-2025 Platelets (Bld) [#/Vol] 162 10*3/uL 150-450 [facility] Potassium measurement (mass/ volume)Ordered By: Eh Huddleston on 03-31-2025 Potassium (Unsp spec) [Mass/Vol] 4.4 mmol/L 3.3-5.1 [facility] RBC Auto (Bld) [#/Vol]Ordere d By: Eh Huddleston on 03-31-2025 RBC (Bld) [#/Vol] 4.03 10*6/uL Low 4.2-5.4 [facility] Screening total cholesterol/ high density lipoprotein (HDL) cholesterol ratioOrdered By: Eh Huddleston on 03-31-2025 Cholesterol.total/Cho lesterol in HDL [Mass ratio] 2.01 {ratio} [facility] Serum creatinine measurement (mass/volume)Ordered By: Eh Huddletson on 03-31-2025 Creatinine [Mass/Vol] 0.79 mg/dL 0.70-1.20 [facility] Serum globulin measurementOr dered By: Eh Huddleston 03-31-2025 Globulin (S) [Mass/Vol] 2.9 g/dL 2.2-4.2 [facility] Serum glucose measurement (m ass/volume)Ordered By: Eh Huddleston 03-31-2025 Glucose [Mass/Vol] 99 mg/dL 70-99 [facility] Serum or plasma alanine woodall otransferase (ALT) measurementOrdered By: Eh Huddleston 03-31-2025 ALT [Catalytic activity/Vol] 12 U/L <35 [facility] Serum or plasma albumin susy urement (mass/volume)Ordered By: Eh Huddleston on 03-31-2025 Albumin [Mass/Vol] 4.0 g/dL 3.4-4.8 [facility] Serum or plasma albumin/glob ulin mass ratioOrdered By: Eh Huddleston 03-31-2025 Albumin/Globulin [Mass ratio] 1.4 {ratio} 0.9-2.4 [facility] Serum or plasma alkaline taisha sphatase measurementOrdered By: Eh Huddleston 03-31-2025 ALP [Catalytic activity/Vol] 75 U/L 35-104 [facility] Serum or plasma calcium susy urement (mass/volume)Ordered By: Eh Huddleston on 03-31-2025 Calcium [Mass/Vol] 9.5 mg/dL 7.6-11.0 [facility] Serum or plasma cholesterol in HDL measurement (mass/volume)Ordered By: Eh Huddleston on 03-31-2025 Cholesterol in HDL [Mass/Vol] 79 mg/dL >40 [facility] Comment on above: National Cholesterol Education Program (NCEP) guidelines:<40 mg/dL: Low HDL-cholesterol (major risk factor for CHD)>= 60 mg/dL: High HDL-cholesterol (negative risk factor for CHD)HDL-cholesterol is affected by a number of factors, e.g. smoking, exercise, hormones, sex and age. Serum or plasma cholesterol measurement (mass/volume)Ordered By: Eh Huddleston on 03-31-2025 Cholesterol [Mass/Vol] 159 mg/dL <201 [facility] Comment on above: Cholesterol level, D esirable <200 mg/dLBorderline high cholesterol 200-239 mg/dLHigh cholesterol >=240 mg/dLRecommendations of the NCEP Adult Treatment Panel for the following risk-cutoff thresholds for the [place] population. Serum or plasma urea nitroge n measurement (mass/volume)Ordered By: Eh Huddleston on 03-31-2025 Urea nitrogen [Mass/Vol] 19 mg/dL 4-19 [facility] Sodium levelOrdered By: Eh Huddleston on 03-31-2025 Sodium [Moles/Vol] 138 mmol/L 133-145 [facility] TSH DL <= 0.005 mIU/L QnOrde red By: Eh Huddleston on 03-31-2025 TSH Qn 1.610 uIU/mL 0.300-4.20 0 [facility] Thyroid Stim Hormone (TSH)on 03-31-2025 TSH 1.610 uIU/mL Normal 0.300-4.20 0 [facility] Comment on above: Performed By: #### L 501.9520, L506.1001, L100.0100, L500.4050, L500.4100 ####[facility] [address] [place], [place], [id number] Total proteinOrdered By: Eh Huddleston on 06-04-2025 Protein [Mass/Vol] 6.9 g/dL 5.9-8.4 [facility] Triglycerides measurementOrd ered By: Eh Huddleston on 03-31-2025 Triglyceride [Mass/Vol] 79 mg/dL <199 [facility] Comment on above: The drugs N-Acetylcy steine and Metamizole may falsely depress this assay. Normal range: <150 mg/dLBorderline High: 150-199 mg/dLHigh: 200-499 mg/dLVery High: >500 mg/dL Vitamin D,25 Hydroxyon 03-31 Vitamin D 25-OH 20.9 ng/mL Low 30-100 [facility] Comment on above: Result Comment: Shu min D StatusDeficiency: <20 ng/mL (50nmol/L)Insufficiency: 20-30 ng/mL (50-75 nmol/L)Sufficiency: 30-100 ng/mL (75-250 nmol/L)Toxicity: >100 ng/mL (>250 nmol/L) Performed By: #### L 501.9520, L506.1001, L100.0100, L500.4050, L500.4100 ####[facility] [address] [place], [place], [id number] White blood cell (WBC) count Ordered By: Eh Huddleston on 03-31-2025 WBC (Bld) [#/Vol] 4.8 10*3/uL 4.4-11.0 [facility] [place] Telephone (CARLENE) GOGO WARE ([id number]) 1940 F Date Time Provider Department 03/11/25 ODILON WELLS During your visit today, we recorded the following information about you: Lori Santamaria 03/11/2025 11:17 AM Signed Received faxed PA request from pharmacy for Eliquis BIN #[id number] N#[id number] ID: [id number] Group: [id number] Deng Smith APRN.CNP 03/11/2025 12:21 PM Signed Completed request reportedly approved Allergies As of Date: 03/11/2025 (No Known Allergies) Date Reviewed: 03/02/2025 Reviewed by: Lucy Mccall APRN.CNP - Fully Assessed Reason for Visit: Insurance Authorization [[id number]] Prescriptions as of 03/11/2025 - amoxicillin (AMOXIL) 500 mg capsule Please take 4 capsules by mouth 30-60 minutes prior to dental appointment - apixaban (ELIQUIS) 5 mg tab(s) Take 1 tablet by mouth two times a day. - clopidogrel (PLAVIX) 75 mg tablet Take 1 tablet by mouth once daily. - atorvastatin (LIPITOR) 40 mg tablet Take 1 tablet by mouth daily at bedtime. - brimonidine (ALPHAGAN) 0.2 % ophthalmic solution Use 2 Drops in the left eye two times a day. - latanoprost (XALATAN) 0.005 % ophthalmic solution Use 1 Drop in the left eye daily at bedtime. - cxixlmt-snyawdvtx-inufaifq,PF (UBC-PNTS-AKN) 0.5-0.15-2 % ophthalmic solution Use 1 Drop in the left eye two times a day. - valsartan (DIOVAN) 160 mg tablet Take 0.5 tablets by mouth once daily. - carvedilol (COREG) 12.5 mg tablet Take 1 tablet by mouth twice daily with meals. - temazepam (RESTORIL) 30 mg cap Take 30 mg by mouth at bedtime as needed. 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 Eh Huddleston MD DOS: Exercise - Initial Assessment Physician Prescribed Exercise Modalities: Treadmill, Rower, Schwinn Airdyne AD-7, SciFit Stepper, Comr.se Pro-II Ergometer and Comr.se Lateral Carmen Nutrition - Initial Assessment Weight Mgt (Other Care) Height: 5 ft 5.5 in Weight:: 171 lb BMI: 28.0 BMI (Report if calculated above): 28 Core - Initial Assessment Hypertension Resting Blood Pressure:: 132/70 [place] [employer] Hypertension Guidelines Psychosocial - Initial Assess Target Goals Target Goals Referral to Behavioral Health PS - Interventions: Yes: Referral to Behavioral Health if PHQ-9 score >9: (provided list of local mental health resources) and Yes: Attend Stress Management Classes and No: Referral to [facility] and No: Referral to Physician if PHQ-9 if score is 5-9: Patient Health Questionnaire PHQ-9 Screening 60-Day Re-eval Assessment: 1. Little interest or pleasure in doing things: Nearly every day 2. Feeling down, depressed, or hopeless: More than half the days 3. Trouble falling or staying asleep, or sleeping too much: Nearly every day 4. Feeling tired or having little energy: Nearly every day 5. Poor appetite or overeating: Not at all 6. Feeling bad about yourself -- or that you are a failure or have let yourself or your family down: Not at all 7. Trouble concentrating on things, such as reading the newspaper or watching television: Not at all 8. Moving or speaking so slowly that other people could have noticed. Or the opposite - being so fidgety or restless that you have been moving around a lot more than usual: Not at all 9. Thoughts that you would be better off , or of hurting yourself in some way: Not at all How difficult have these problems made it for you to do your work, take care of things at home, or get along with other people?: Not difficult at all Total Score: 11 Self-Efficacy 6-Item Scale 60-Day Re-eval Assessment: We would like to know how confident you are in doing certain activities. Please select your confidence level for: Fatigue Select Number: 10 Physical Discomfort or Pain Select Number: 10 Emotional Distress Select Number: 10 Other Symptoms or Health Problems Select Number: 10 Different Tasks and Activities Select Number: 10 Medication Select Number: 10 Total Score:: 10 Nutrition Survey Nutrition Survey Instructions Scoring Instructions Exercise - 30-day Assessment Physician Prescribed Exercise Modalities: Treadmill, Rower, Schwinn Airdyne AD-7, SciFit Stepper, SciFit Pro-II Ergometer and SciFit Lateral Psychologist Research Assistant Exercise - 60-day Assessment Visit Date of Eval: 03/11/25 Session #:: 20 Physician Prescribed Exercise Modalities: Treadmill, Rower, Schwinn Airdyne AD-7, SciFit Stepper, SciFit Pro-II Ergometer and SciFit Lateral Psychologist Research Assistant Frequency: 3x/week for 12 weeks [36 sessions] Intensity: 60-80% of age predicted maximum heart rate reserve Duration: 30 - 45 minutes METs - Progression 0.5-1.0 weekly:: 0.5-1.0 Current METSs:: 4.1 Target Heart Rate:: 81-101 Target RPE 11-14 Current RPE:: 11-14 Current RPE:: 12 Maximum Excercise HR:: 97 Resting Blood Pressure: 138/80 Maximum Exercise Blood Pressure: 128/78 EKG Type: NSR to ST with incomplete BBB with rare PAC/PVC Current Physical Activity or Exercising minutes: 31 Outcomes & Goals Goals:: Verbalizes understanding of THR, RPE & goal METS by session 6, Documentsin home exercise log/reports 30 min aerobic 5 day/wk by DC and Demonstrates accurate pulse taking by DC Intervention & Plan Exercise Program Goals: Instruct on personal THR & RPE, Instruct on MET level & personal MET goal, Show patient to take own pulse /validate performance until accurate and Instruct on home exercise 30-day Reassessments 30 day Reassessments:: Progressing Reassessment Notes & Comments:: Pt able to demonstrate correct pulse taking, pt able to progress MET level Physical Activity Home Exercise Physical Activity - Home Exercise: Safe Exercise, Warm-up, Self-monitoring, Cool-Down, Home Exercise > 30 min Daily and Sitting Time <3 hours/daily Outcomes & Goals Outcomes/Goals: Demonstrates correct Warm-up/exercise Cool-Down (S3) if = 2.5 METs, Verbalizes symptoms of exercise intolerance by Session 3 (S3) and Demonstrate safe equipment use (S3) & follows exercise prescrition (6) Intervention & Plan Plan/Intervention: Instruct warm-up & cool-down if exercising at > 2 METs, Instruct on symptoms of exercise intolerance & actions to take, Instruct & monitor on saf and Assess intial functional capacity & safety risk 30-day Reassessments 30 day Reassessments:: Progressing Reassessment Notes & Comments:: PT warms up and cools down appropriately with minimal prompting, pt shows increased functional capacity and understands safetyrisks (more content not included)... [facility] 03-05-2025 [place] Telephone (CARDHOSP) GOGO WARE ([id number]) 1940 F Date Time Provider Department 03/05/25 LUCY MCCALL [facility] During your visit today, we recorded the following information about you: Lucy Mccall APRN.CNP 03/05/2025 2:39 PM Signed Spoke with patient's friend, Marni. 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 She is going to assist her in applying for a copay card. If she doesn't qualify, we discussed the possibility of switching to Coumadin. They will reach out to the office if a switch is needed. Lucy Mccall APRN.MEDICAL RECORDS SPECIALIST Allergies As of Date: 03/05/2025 (No Known Allergies) Date Reviewed: 03/02/2025 Reviewed by: Lucy Mccall APRN.MEDICAL RECORDS SPECIALIST - Fully Assessed Prescriptions as of 03/05/2025 - amoxicillin (AMOXIL) 500 mg capsule Please take 4 capsules by mouth 30-60 minutes prior to dental appointment - apixaban (ELIQUIS) 5 mg tab(s) Take 1 tablet by mouth two times a day. - clopidogrel (PLAVIX) 75 mg tablet Take 1 tablet by mouth once daily. - atorvastatin (LIPITOR) 40 mg tablet Take 1 tablet by mouth daily at bedtime. - brimonidine (ALPHAGAN) 0.2 % ophthalmic solution Use 2 Drops in the left eye two times a day. - latanoprost (XALATAN) 0.005 % ophthalmic solution Use 1 Drop in the left eye daily at bedtime. - dhvxasz-ezoeirjby-xuohgwmr,PF (IUZ-LKDF-UYZ) 0.5-0.15-2 % ophthalmic solution Use 1 Drop in the left eye two times a day. - valsartan (DIOVAN) 160 mg tablet Take 0.5 tablets by mouth once daily. - carvedilol (COREG) 12.5 mg tablet Take 1 tablet by mouth twice daily with meals. - temazepam (RESTORIL) 30 mg cap Take 30 mg by mouth at bedtime as needed. Meds Comments as of 01/05/2013: PT STATES SHE USES ANOTHER DROP, GREEN TOP, AT NIGHT OU Problem List As Of Date 03/05/2025 Noted Resolved Mixed hyperlipidemia [E78.2] 02/26/2019 Essential (primary) hypertension [I10] 09/09/2017 Coronary artery disease involving [place] guo*04/07/2024 Insomnia [G47.00] 04/07/2024 Glaucoma [H40.9] 04/07/2024 Nonrheumatic aortic valve stenosis [I35.0] 04/07/2024 Acute on chronic diastolic congestive heart kayley*10/29/2024 Severe aortic stenosis [I35.0] 10/30/2024 S/P TAVR (transcatheter aortic valve replacemen*10/30/2024 Encounter Status:Closed by [facility]CC[facility]05/25 [facility] Tele[facility] (CARDHOSP) CHAZGOGO Hien ([id number]) 1940 F Date Time Provider Department 03/04/25 LUCY MCCALL [facility] During your visit today, we recorded the following information about you: Lucy Mccall APRN.MEDICAL RECORDS SPECIALIST 03/04/2025 3:59 PM Signed Spoke with patient regarding CT results. 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 Wells would like patient to remain on Eliquis x 1 year and reassess echo at that time. Request placed for TTE and follow up in 1 year. Lucy Mccall APRN.JACEY Allergies As of Date: 03/04/2025 (No Known Allergies) Date Reviewed: 03/02/2025 Reviewed by: Lucy Mccall APRN.JACEY - Fully Assessed Primary Visit Diagnosis:S/P TAVR (transcatheter aortic valve replacement) [Z95.2] Other Visit Diagnosis:Severe aortic stenosis [I35.0] Order(s):amoxicillin (AMOXIL) 500 mg capsulePlease take 4 capsules by mouth 30-60 minutes prior to dental appointmentDisp: 4 capsuleRfl: 0 CARDIOVASCULAR MEDICINE OP FOLLOW UP APPT ORDER [[id number]] Order #: [id number]: 1 FUTURE ECHO [[id number]] Order #: [id number]: 1 FUTURE ECG COMPLETE [ECG01] Order #: [id number] FUTURE COMPREHENSIVE METABOLIC PANEL [SQCMP] Order #: [id number] FUTURE BASIC METABOLIC PANEL [SQBMP] Order #: [id number] FUTURE NT PRO BNP [SQNTBNP] Order #: [id number] FUTURE Prescriptions as of 03/04/2025 - amoxicillin (AMOXIL) 500 mg capsule Please take 4 capsules by mouth 30-60 minutes prior to dental appointment - apixaban (ELIQUIS) 5 mg tab(s) Take 1 tablet by mouth two times a day. - clopidogrel (PLAVIX) 75 mg tablet Take 1 tablet by mouth once daily. - atorvastatin (LIPITOR) 40 mg tablet Take 1 tablet by mouth daily at bedtime. - brimonidine (ALPHAGAN) 0.2 % ophthalmic solution Use 2 Drops in the left eye two times a day. - latanoprost (XALATAN) 0.005 % ophthalmic solution Use 1 Drop in the left eye daily at bedtime. - ebcmitv-tffoiwrbx-zqlrlhnr,PF (RNR-ZZMG-NSH) 0.5-0.15-2 % ophthalmic solution Use 1 Drop in the left eye two times a day. - valsartan (DIOVAN) 160 mg tablet Take 0.5 tablets by mouth once daily. - carvedilol (COREG) 12.5 mg tablet Take 1 tablet by mouth twice daily with meals. - temazepam (RESTORIL) 30 mg cap Take 30 mg by mouth at bedtime as needed. Meds Comments as of 01/05/2013: PT STATES SHE USES ANOTHER DROP, GREEN TOP, AT NIGHT OU Problem List As Of Date 03/04/2025 Noted Resolved Mixed hyperlipidemia [E78.2] 02/26/2019 Essential (primary) hypertension [I10] 09/09/2017 Coronary artery disease involving [place] guo*04/07/2024 Insomnia [G47.00] 04/07/2024 Glaucoma [H40.9] 04/07/2024 Nonrheumatic aortic valve stenosis [I35.0] 04/07/2024 Acute on chronic diastolic congestive heart kayley*10/29/2024 Severe aortic stenosis [I35.0] 10/30/2024 S/P TAVR (transcatheter aortic valve replacemen*10/30/2024 Prescriptions ordered this encounter Disp Refills Start End AMOXICILLIN 500 MG CAPSULE 4 ca* 0 03/04/2025 Sig: Please take 4 capsules by mouth 30-60 minutes prior to dental appointment Encounter Status:Closed by LUCY MCCALL on 03/04/25 [facility] CNOVon 03-02-2025 CNOV Office Visit (CATHMN ) GOGO WARE ([id number]) 1940 F Date Time Provider Department 03/02/25 1:00 PM LUCY MCCALL CATHMN During your visit today, we recorded the following information about you: Respiration Blood pressure Weight Height 17/minute 145/58 75.3 kg 1.664 m Lucy Mccall APRN.JACEY 03/02/2025 1:41 PM Signed [facility] Department of Cardiovascular Medicine SECTION OF INTERVENTIONAL CARDIOLOGY OUTPATIENT VISIT DATE March 01, 2025 OUTPATIENT VISIT TYPE ESTABLISHED FOLLOW UP Primary [employer]essionals: Dr. Wells Chief Complaint: Patient here for cardiac follow up evaluation History of Present Illness: Patient is a 84 year old female who presents for follow up visit today. Past medical history includes: Aortic stenosis -10/30/2024: s/p TF TAVR with a 23mm Newell Jerry S3 and Stenting of the R-NURSE RESEARCH with a 8.0 x 39 mm [place] VBX Balloon expandable stent by Dr. Wells Coronary artery disease -Cath in 2018 showing moderate RCA and LAD disease, RCA iFR 0.96 and LAD iFR was abnormal at 0.84 (patient opted not to proceed with PCI of mid LAD, hence being medically managed) Chronic diastolic heart failure Hypertension Hyperlipidemia Glaucoma (left eye completely blind) Patient being seen today for post TAVR follow up. On 10/30/2024, underwent 23mm Newell Jerry S3 and Stenting of the R-NURSE RESEARCH with a 8.0 x 39 mm [place] VBX Balloon expandable stent by Dr. Wells. Post procedure echocardiogram completed demonstrating peak/mean gradients 19/11 mmHg, EFFIE 2.15 cm2, DVI 0.52. Discharge EKG SB with first degree HB (TYREL 230, QRS 96). Discharged with DAPT for minimum 6 months. Arterial doppler/PVR at 1, 3, 6, and 12 months post procedure. She last last seen in November by Deng Smith CNP. Echo gradients slightly higher than initial post procedure gradients. Peak/mean 37/21 mmHg from 19/[address] cardiac to rule out HALT. PVR/VARSHA completed today with no change. RLE US completed with new incidental finding of acute DVT in the right soleal vein from proximal to distal calf. Since discharge, patient has been doing really well. She has been working out about 3 times per week and has had no shortness of breath, chest pain, dizziness or lightheadedness. She denies any tenderness, swelling or redness of her RLE extremity. PAST CARDIAC HISTORY: See HPI PAST MEDICAL HISTORY Diagnosis Date Aortic valve stenosis CAD (coronary artery disease) Disease PROBLEM SLEEPING Essential hypertension Glaucoma HTN (hypertension) Mixed hyperlipidemia PAST SURGICAL HISTORY Procedure Laterality Date PROCEDURE 1999, 2006 BOTH HIPS REPLACED PROCEDURE 10/28/2009 LASER OU FOR GLAUCOMA REMV CATARACT EXTRACAP,INSERT LENS Left 04/20/2024 Social History Tobacco Use Smoking status: Never Smokeless tobacco: Never Vaping Use Vaping status: Never Used Substance Use Topics Alcohol use: Never Drug use: Never FAMILY HISTORY Problem Relation Age of Onset Glaucoma Father Diabetes Father Coronary Artery Disease Sister Colon Cancer Maternal Grandmother Stroke Maternal Grandfather Blindness Other GREAT AUNT Colon Cancer Other ALLERGIES No Known Allergies MEDICATIONS: Current Outpatient Medications Medication Sig clopidogrel (PLAVIX) 75 mg tablet Take 1 tablet by mouth once daily. atorvastatin (LIPITOR) 40 mg tablet Take 1 tablet by mouth daily at bedtime. brimonidine (ALPHAGAN) 0.2 % ophthalmic solution Use 2 Drops in the left eye two times a day. latanoprost (XALATAN) 0.005 % ophthalmic solution Use 1 Drop in the left eye daily at bedtime. fgqjajl-dqnqehoem-wrfswcne,PF (MVQ-UFKO-CTL) 0.5-0.15-2 % ophthalmic solution Use 1 Drop in the left eye two times a day. valsartan (DIOVAN) 160 mg tablet Take 0.5 tablets by mouth once daily. carvedilol (COREG) 12.5 mg tablet Take 1 tablet by mouth twice daily with meals. aspirin, enteric coated (ASPIRIN, ENTERIC COATED) 81 mg EC tablet Take 81 mg by mouth once daily. temazepam (RESTORIL) 30 mg cap Take 30 mg by mouth at bedtime as needed. No current facility-administered medications for this visit. REVIEW OF SYSTEMS: PAIN ASSESSMENT: Denies complaints of acute or chronic pain GENERAL: Denies fevers, chills, night sweats, weight gain or loss HEENT: Denies changes in vision, hearing, nose bleeds, or bleeding gums NECK: Denies neck pain, stiffness, or swelling, or swollen lymph nodes RESPIRATORY: See HPI CARDIOVASCULAR: See HPI GI: Denies difficulty swallowing, nausea, vomiting, diarrhea, constipation, or melena : Denies frequency, urgency, or burning, and hematuria MUSCULOSKELETAL: Denies joint pain, swelling, or stiffness SKIN: Denies rashes, lesions, or tears PSYCH: Denies sleep disturbance, mood disorder, or recent psychosocial stressors HEMATOLOGY/LYMPHOLOGY: (more content not included)... Normal [facility] CREATININE, BLOOD (POC)on Creatinine [Mass/Vol] 1 mg/dL 0.7 - 1.4 mg/dL [facility] GFR/1.73 sq M.predicted among non-blacks MDRD (S/P/Bld) [Vol rate/Area] 55 mL/min/{1.73_m2} mL/min/1.7 3 m2 [facility] Location:Radiology [facility], [address] [place] [address], [facility] Adults (18+): eGFR is calculated using the 2020 CKD-EPI Creatinine Equation. Pediatric patients (<18): eGFR should be clinically calculated using the 2020 Robertson Equation. The National [employer] provides online calculators. [facility] POINT OF CARE [facility] CT CARDIAC W IVCONon 025 CT CARDIAC W IVCON * * *Final Report* * * DATE OF EXAM: Mar 02 2025 12:33PM JQC 0127 - CT CARDIAC W IVCON / PROCEDURE REASON: multiple diagnoses * * * * Physician Interpretation * * * * CTA CARDIAC/Aortic Valve Direct Image Comparison: 08/31/2024 HISTORY: 84 years y/o Female with chronic h/o aortic valve stenosis, s/p TAVR Evaluation for suspected leaflet thrombosis/HALT. There is request to define prosthetic aortic valve anatomy including dynamic assessment TECHNIQUE: SCANNER:out-patient Siemens Definition Force Dual source [id number] scanner PROTOCOL: Spiral imaging of the heart with retrospective gating with sub-millimeter slice reconstruction throughout the cardiac cycle for dynamic 4-D assessment, following intravenous contrast administration. Scan Range: melissa to the base of the heart CT Dose-Length Product (DLP): 460 mGy*cm CT Dose Reduction Employed: Automated exposure control(AEC) and iterative recon CONTRAST: IV administration of 70 ml Omnipaque 350 Scan acquisition: uncomplicated Macro Version: [id number]:CCTW_7 For optimization of anatomic evaluation, advanced 3-D off-line postprocessing was performed on a dedicated workstation by the interpreting physician. STUDY LIMITATIONS: None. RESULT: LINES, TUBES and DEVICES: None CHEST: Chest wall anatomy: calcification of the bilateral breast tissue -clinical and mammographic correlation suggested. visualized LUNGS: bibasilar atelectasis. visualized MEDIASTINUM: Small hiatal hernia PERICARDIUM: unremarkable CENTRAL PULMONARY ARTERY: normal dimensions. Assessment is limited due to limited contrast enhancement. CARDIAC CHAMBERS: LEFT VENTRICLE: normal size with normal systolic function; LV EF = 71 %; LV EDV 91 ml; LVmass 150 g RIGHT VENTRICLE: normal size Left Atrium: normal size. Small linear structure at the interatrial septum, most consistent with the foramen ovale or a left atrial septal pouch. ANNE MARIE: normal. Right Atrium: normal size CENTRAL VENOUS and PULMONARY VENOUS RETURN: normal. Coronary Sinus: normal size MITRAL VALVE: assessment is limited in the current study - no leaflet calcification. Moderate mitral annular calcification TRICUSPID and PULMONIC VALVE: appear unremarkable. CORONARY ANATOMY: normal origin of the coronary arteries. Severe calcified atherosclerotic changes of the coronary arteries. However, the current study is not optimized for coronary assessment. AORTIC VALVE: TAVR with Bio-prosthetic Stent/Valve: - Craniocaudal stent height of 2.0 cm - Symmetric expansion; stent diameter at mid segment: 2.0 x 2.0cm - Valve leaflet are identified in diastolic reconstructions with thickening along the base of the right sided leaflet - Valve leaflets are not clearly identified in systolic reconstructions suggesting fast, unrestricted motion - the [place] calcified leaflets are seen displaced into the periphery of the coronary sinuses visualized AORTA: Pathology: No acute aortic pathology. Aortic Size: Normal size visualized segments of thoracic aorta. STJ: maintained. Wall Changes: Mild partially calcified wall changes ascending aorta. Adherent wall thrombus/plaque descending thoracic aorta. AORTIC DIMENSIONS: [place] AORTIC ROOT: 3.0 cm measured [id number] mid ASCENDING THORACIC AORTA: 3.4 cm mid DESCENDING THORACIC AORTA: 2.1 cm limited upper ABDOMEN: unremarkable BONES and SOFT TISSUES: degenerative changes of the thoracic spine. Manager Rail (topogram) images: No additional findings. IMPRESSION: s/p TAVR Leaflet Thickening suggest HALT: - Valve leaflets are identified in diastolic reconstructions with thickening along the base of the right sided leaflet General Studies Program Chair: [facility] Transcribe Date/Time: Mar 02 2025 2:14P Dictated by : OMAR YIN MD This examination was interpreted and the report reviewed and electronically signed by: NICKI MARIE MD on Mar 02 2025 5:52PM EST [id number] Normal [facility] CT Heart W contrast Marifer IMPRESSION: s/p TAVR Leaflet Thickening suggest HALT: - Valve leaflets are identified in diastolic reconstructions with thickening along the base of the right sided leaflet General Studies Program Chair: [facility] Transcribe Date/Time: Mar 02 2025 2:14P Dictated by : OMAR YIN MD This examination was interpreted and the report reviewed and electronically signed by: NICKI MARIE MD on Mar 02 2025 5:52PM EST DIVISION OF RADIOLOGY * * *Final Report* * * DATE OF EXAM: Mar 02 2025 12:33PM JQC 0127 - CT CARDIAC W IVCON / PROCEDURE REASON: multiple diagnoses * * * * Physician Interpretation * * * * CTA CARDIAC/Aortic Valve Direct Image Comparison: 08/31/2024 HISTORY: 84 years y/o Female with chronic h/o aortic valve stenosis, s/p TAVR Evaluation for suspected leaflet thrombosis/HALT. There is request to define prosthetic aortic valve anatomy including dynamic assessment TECHNIQUE: SCANNER:out-patient Siemens Definition Force Dual source [id number] scanner PROTOCOL: Spiral imaging of the heart with retrospective gating with sub-millimeter slice reconstruction throughout the cardiac cycle for dynamic 4-D assessment, following intravenous contrast administration. Scan Range: melissa to the base of the heart CT Dose-Length Product (DLP): 460 mGy*cm CT Dose Reduction Employed: Automated exposure control(AEC) and iterative recon CONTRAST: IV administration of 70 ml Omnipaque 350 Scan acquisition: uncomplicated Macro Version: [id number]_7 For optimization of anatomic evaluation, advanced 3-D off-line postprocessing was performed on a dedicated workstation by the interpreting physician. STUDY LIMITATIONS: None. RESULT: LINES, TUBES and DEVICES: None CHEST: Chest wall anatomy: calcification of the bilateral breast tissue -clinical and mammographic correlation suggested. visualized LUNGS: bibasilar atelectasis. visualized MEDIASTINUM: Small hiatal hernia PERICARDIUM: unremarkable CENTRAL PULMONARY ARTERY: normal dimensions. Assessment is limited due to limited contrast enhancement. CARDIAC CHAMBERS: LEFT VENTRICLE: normal size with normal systolic function; LV EF = 71 %; LV EDV 91 ml; LVmass 150 g RIGHT VENTRICLE: normal size Left Atrium: normal size. Small linear structure at the interatrial septum, most consistent with the foramen ovale or a left atrial septal pouch. ANEN MARIE: normal. Right Atrium: normal size CENTRAL VENOUS and PULMONARY VENOUS RETURN: normal. Coronary Sinus: normal size MITRAL VALVE: assessment is limited in the current study - no leaflet calcification. Moderate mitral annular calcification TRICUSPID and PULMONIC VALVE: appear unremarkable. CORONARY ANATOMY: normal origin of the coronary arteries. Severe calcified atherosclerotic changes of the coronary arteries. However, the current study is not optimized for coronary assessment. AORTIC VALVE: TAVR with Bio-prosthetic Stent/Valve: - Craniocaudal stent height of 2.0 cm - Symmetric expansion; stent diameter at mid segment: 2.0 x 2.0cm - Valve leaflet are identified in diastolic reconstructions with thickening along the base of the right sided leaflet - Valve leaflets are not clearly identified in systolic reconstructions suggesting fast, unrestricted motion - the [place] calcified leaflets are seen displaced into the periphery of the coronary sinuses visualized AORTA: Pathology: No acute aortic pathology. Aortic Size: Normal size visualized segments of thoracic aorta. STJ: maintained. Wall Changes: Mild partially calcified wall changes ascending aorta. Adherent wall thrombus/plaque descending thoracic aorta. AORTIC DIMENSIONS: [place] AORTIC ROOT: 3.0 cm measured [id number]-zk-[id number] mid ASCENDING THORACIC AORTA: 3.4 cm mid DESCENDING THORACIC AORTA: 2.1 cm limited upper ABDOMEN: unremarkable BONES and SOFT TISSUES: degenerative changes of the thoracic spine. Manager Rail (topogram) images: No additional findings. DIVISION OF RADIOLOGY Provider, [facility] - 03/02/2025 * * *Final Report* * * DATE OF EXAM: Mar 02 2025 12:33PM JQC 0127 - CT CARDIAC W IVCON / PROCEDURE REASON: multiple diagnoses * * * * Physician Interpretation * * * * CTA CARDIAC/Aortic Valve Direct Image Comparison: 08/31/2024 HISTORY: 84 years y/o Female with chronic h/o aortic valve stenosis, s/p TAVR Evaluation for suspected leaflet thrombosis/HALT. There is request to define prosthetic aortic valve anatomy including dynamic assessment TECHNIQUE: SCANNER:out-patient Siemens Definition Force Dual source [id number] scanner PROTOCOL: Spiral imaging of the heart with retrospective gating with sub-millimeter slice reconstruction throughout the cardiac cycle for dynamic 4-D assessment, following intravenous contrast administration. Scan Range: melissa to the base of the heart CT Dose-Length Product (DLP): 460 mGy*cm CT Dose Reduction Employed: Automated exposure control(AEC) and iterative recon CONTRAST: IV administration of 70 ml Omnipaque 350 Scan acquisition: uncomplicated Macro Version: [id number]_[id number] For optimization of anatomic evaluation, advanced 3-D off-line postprocessing was performed on a dedicated workstation by the interpreting physician. STUDY LIMITATIONS: None. RESULT: LINES, TUBES and DEVICES: None CHEST: Chest wall anatomy: calcification of the bilateral breast tissue -clinical and mammographic correlation suggested. visualized LUNGS: bibasilar atelectasis. visualized MEDIASTINUM: Small hiatal hernia PERICARDIUM: unremarkable CENTRAL PULMONARY ARTERY: normal dimensions. Assessment is limited due to limited contrast enhancement. CARDIAC CHAMBERS: LEFT VENTRICLE: normal size with normal systolic function; LV EF = 71 %; LV EDV 91 ml; LVmass 150 g RIGHT VENTRICLE: normal size Left Atrium: normal size. Small linear structure at the interatrial septum, most consistent with the foramen ovale or a left atrial septal pouch. ANNE MARIE: normal. Right Atrium: normal size CENTRAL VENOUS and PULMONARY VENOUS RETURN: normal. Coronary Sinus: normal size MITRAL VALVE: assessment is limited in the current study - no leaflet calcification. Moderate mitral annular calcification TRICUSPID and PULMONIC VALVE: appear unremarkable. CORONARY ANATOMY: normal origin of the coronary arteries. Severe calcified atherosclerotic changes of the coronary arteries. However, the current study is not optimized for coronary assessment. AORTIC VALVE: TAVR with Bio-prosthetic Stent/Valve: - Craniocaudal stent height of 2.0 cm - Symmetric expansion; stent diameter at mid segment: 2.0 x 2.0cm - Valve leaflet are identified in diastolic reconstructions with thickening along the base of the right sided leaflet - Valve leaflets are not clearly identified in systolic reconstructions suggesting fast, unrestricted motion - the [place] calcified leaflets are seen displaced into the periphery of the coronary sinuses visualized AORTA: Pathology: No acute aortic pathology. Aortic Size: Normal size visualized segments of thoracic aorta. STJ: maintained. Wall Changes: Mild partially calcified wall changes ascending aorta. Adherent wall thrombus/plaque descending thoracic aorta. AORTIC DIMENSIONS: [place] AORTIC ROOT: 3.0 cm measured [id number]-ccxjg mid ASCENDING THORACIC AORTA: 3.4 cm mid DESCENDING THORACIC AORTA: 2.1 cm limited upper ABDOMEN: unremarkable BONES and SOFT TISSUES: degenerative changes of the thoracic spine. Manager Rail (topogram) images: No additional findings. IMPRESSION IMPRESSION: s/p TAVR Leaflet Thickening suggest HALT: - Valve leaflets are identified in diastolic reconstructions with thickening along the base of the right sided leaflet General Studies Program Chair: [facility] Transcribe Date/Time: Mar 02 2025 2:14P Dictated by : OMAR YIN MD This examination was interpreted and the report reviewed and electronically signed by: NICKI MARIE MD on Mar 02 2025 5:52PM EST [facility] Radiology Study observation (narrative) [facility] CT Heart W contrast IVOrdere d By: [facility] Provider on 03-02-2025 [facility] PVR ANK/CEE/TOE [facility] on 03-02-2025 PVR ANK/CEE/TOE [facility] Non-Invasive Vascular Laboratory [facility] J Lower Extremity Arterial Physiology Study Bilateral/Complete Date of service/time: 03/02/2025 9:19:38 AM Name: MRS. GOGO WARE Date of : 1940 Age: 84 years Gender: F Clinical Indication History of right common iliac artery stenting done 10/30/2024. TECHNIQUE -------- An arterial physiological examination was performed, including measurement of blood pressures using continuous wave Doppler and recording of plethysmographic with or without Doppler waveforms at the below-mentioned limb segments. FINDINGS -------- RIGHT SIDE AT REST Right Pressures Brachial: 146 mmHg Ankle dorsalis pedis: 175 mmHg VARSHA: 1.20 Ankle posterior tibial: 186 mmHg VARSHA: 1.27 Right PVR Waveforms Ankle: Normal. Transmetatarsal: Normal. Digit: Normal. LEFT SIDE AT REST Left Pressures Brachial: 146 mmHg Ankle dorsalis pedis: 176 mmHg VARSHA: 1.21 Ankle posterior tibial: 168 mmHg VARSHA: 1.15 Left PVR Waveforms Ankle: Normal. Transmetatarsal: Normal. Digit: Normal. IMPRESSION Compared to prior study of 12/23/2024, no change. RIGHT SIDE Resting right ankle brachial index: 1.27 Normal ankle brachial index at rest in the right leg. Right ankle: Normal at rest. LEFT SIDE Resting left ankle brachial index: 1.21 Normal ankle brachial index at rest in the left leg. Left ankle: Normal at rest. Technologist: Nuris Ruelas RVYareli Ordering physician: ODILON WELLS Interpreting physician: Pascual Guaman MD, SHERIDAN Final [employer] Medical Image : [id number] UID See Link below for Image [facility] LEG ARTERIAL PERIPH UNL V LABon 03-02-2025 LEG ARTERIAL PERIPH UNL VAS LAB Non-Invasive Vascular Laboratory [facility] J35 Lower Extremity Arterial Duplex Unilateral - Right Date of service/time: 03/02/2025 9:37:12 AM Name: MRS. GOGO WARE Date of : 1940 Age: 84 years Gender: F Clinical Indication Follow up right common femoral artery stenting done 10/30/2024. TECHNIQUE -------- An arterial duplex ultrasound examination was performed, including grayscale imaging and color Doppler and spectral Doppler examination of the below mentioned arteries. FINDINGS -------- RIGHT ARTERIES External iliac distal: PSV: 135 cm/s. EDV: 0 cm/s. Multiphasic waveform. Common femoral proximal: PSV: 143 cm/s. EDV: 0 cm/s. Multiphasic waveform. Common femoral mid: PSV: 105 cm/s. EDV: 0 cm/s. Multiphasic waveform. Common femoral distal: PSV: 113 cm/s. EDV: 0 cm/s. Multiphasic waveform. Profunda femoral proximal: PSV: 136 cm/s. EDV: 0 cm/s. Multiphasic waveform. Superficial femoral origin: PSV: 106 cm/s. EDV: 0 cm/s. Multiphasic waveform. Superficial femoral proximal: PSV: 124 cm/s. EDV: 0 cm/s. Multiphasic waveform. Superficial femoral mid: PSV: 97 cm/s. EDV: 0 cm/s. Multiphasic waveform. Superficial femoral distal: PSV: 136 cm/s. EDV: 0 cm/s. Multiphasic waveform. Popliteal proximal: PSV: 90 cm/s. EDV: 0 cm/s. Multiphasic waveform. Popliteal mid: PSV: 62 cm/s. EDV: 0 cm/s. Multiphasic waveform. Popliteal distal: PSV: 64 cm/s. EDV: 0 cm/s. Multiphasic waveform. Posterior tibial proximal: PSV: 26 cm/s. EDV: 0 cm/s. Multiphasic waveform. Posterior tibial mid: PSV: 16 cm/s. EDV: 0 cm/s. Multiphasic waveform. Posterior tibial distal: PSV: 22 cm/s. EDV: 0 cm/s. Multiphasic waveform. Peroneal proximal: PSV: 27 cm/s. EDV: 0 cm/s. Multiphasic waveform. Peroneal mid: PSV: 30 cm/s. EDV: 0 cm/s. Multiphasic waveform. Peroneal distal: PSV: 9 cm/s. EDV: 2 cm/s. Multiphasic waveform. Anterior tibial proximal: PSV: 94 cm/s. EDV: 0 cm/s. Multiphasic waveform. Anterior tibial mid: PSV: 337 cm/s. EDV: 0 cm/s. Multiphasic waveform. VESSEL/GRAFT Anterior tibial artery distal: PSV: 69 cm/s. EDV: 0 cm/s. Multiphasic waveform. Anterior tibial artery distal: PSV: 138 cm/s. EDV: 0 cm/s. Multiphasic waveform. IMPRESSION Odilon Wells MD was notified with results at 10:05am. Compared to prior study of 12/23/2024, incidental finding of acute deep vein thrombosis in right calf. RIGHT SIDE External iliac artery distal: plaque noted without evidence of hemodynamically significant stenosis . Common femoral artery : plaque noted without evidence of hemodynamically significant stenosis . Stent noted from proximal to mid and appears patent. Profunda femoral artery proximal: plaque noted without evidence of hemodynamically significant stenosis . Superficial femoral artery and Popliteal artery : plaque noted without evidence of hemodynamically significant stenosis . Posterior tibial artery and Peroneal artery : plaque noted without evidence of hemodynamically significant stenosis . Vessels visualized in segments. Anterior tibial artery mid: 50-99% stenosis . Anterior tibial artery distal: 50-99% stenosis . Incidental finding of acute deep vein thrombosis in the right soleal vein from proximal to distal calf. Technologist: Nuris Ruelas RVT Ordering physician: ODILON WELLS Interpreting physician: Pascual Guaman MD, SHERIDAN Final [employer] Medical Image : [id number] oDynamicsSISUID See Link below for Image Normal [facility] Keri 03-01-2025 CNPN Telephone (CATHMN) GOGO WARE ([id number]) 1940 F Date Time Provider Department 03/01/25 ODILON WELLS During your visit today, we recorded the following information about you: Raven Zazueta 03/01/2025 9:25 AM Signed Called patient back and told her fasting was not necessary Allergies As of Date: 03/01/2025 (No Known Allergies) Date Reviewed: 12/23/2024 Reviewed by: Farhana Alejandra MA - Fully Assessed Prescriptions as of 03/01/2025 - clopidogrel (PLAVIX) 75 mg tablet Take 1 tablet by mouth once daily. - atorvastatin (LIPITOR) 40 mg tablet Take 1 tablet by mouth daily at bedtime. - brimonidine (ALPHAGAN) 0.2 % ophthalmic solution Use 2 Drops in the left eye two times a day. - latanoprost (XALATAN) 0.005 % ophthalmic solution Use 1 Drop in the left eye daily at bedtime. - bhamogv-aoqarofvt-owexzudb,PF (LJC-KAQC-CSR) 0.5-0.15-2 % ophthalmic solution Use 1 Drop in the left eye two times a day. - valsartan (DIOVAN) 160 mg tablet Take 0.5 tablets by mouth once daily. - carvedilol (COREG) 12.5 mg tablet Take 1 tablet by mouth twice daily with meals. - aspirin, enteric coated (ASPIRIN, ENTERIC COATED) 81 mg EC tablet Take 81 mg by mouth once daily. - temazepam (RESTORIL) 30 mg cap Take 30 mg by mouth at bedtime as needed. Meds Comments as of 01/05/2013: PT STATES SHE USES ANOTHER DROP, GREEN TOP, AT NIGHT OU Problem List As Of Date 03/01/2025 Noted Resolved Mixed hyperlipidemia [E78.2] 02/26/2019 Essential (primary) hypertension [I10] 09/09/2017 Coronary artery disease involving [place] guo*04/07/2024 Insomnia [G47.00] 04/07/2024 Glaucoma [H40.9] 04/07/2024 Nonrheumatic aortic valve stenosis [I35.0] 04/07/2024 Acute on chronic diastolic congestive heart kayley*10/29/2024 Severe aortic stenosis [I35.0] 10/30/2024 S/P TAVR (transcatheter aortic valve replacemen*10/30/2024 Encounter Status:Closed by RAVEN [facility]UETA [facility] ([id number]) 1940 F Date Time Provider Department 03/01/25 ODILON WELLS During your visit today, we recorded the following information about you: Raven Zazueta 03/01/2025 9:16 AM Signed Annyn had questions about the three different labs she is having done tomorrow morning. Patient wanted to clarify that the tests were not duplicates. Patient also asked if she had to fast before labs. I instructed the patient to fast for 12 hours prior to labs. Allergies As of Date: 03/01/2025 (No Known Allergies) Date Reviewed: 12/23/2024 Reviewed by: Farhana Alejandra MA - Fully Assessed Prescriptions as of 03/01/2025 - clopidogrel (PLAVIX) 75 mg tablet Take 1 tablet by mouth once daily. - atorvastatin (LIPITOR) 40 mg tablet Take 1 tablet by mouth daily at bedtime. - brimonidine (ALPHAGAN) 0.2 % ophthalmic solution Use 2 Drops in the left eye two times a day. - latanoprost (XALATAN) 0.005 % ophthalmic solution Use 1 Drop in the left eye daily at bedtime. - zneipin-lfwnrfbtd-zfbsioqk,PF (UVY-EMSJ-KAH) 0.5-0.15-2 % ophthalmic solution Use 1 Drop in the left eye two times a day. - valsartan (DIOVAN) 160 mg tablet Take 0.5 tablets by mouth once daily. - carvedilol (COREG) 12.5 mg tablet Take 1 tablet by mouth twice daily with meals. - aspirin, enteric coated (ASPIRIN, ENTERIC COATED) 81 mg EC tablet Take 81 mg by mouth once daily. - temazepam (RESTORIL) 30 mg cap Take 30 mg by mouth at bedtime as needed. Meds Comments as of 01/05/2013: PT STATES SHE USES ANOTHER DROP, GREEN TOP, AT NIGHT OU Problem List As Of Date 03/01/2025 Noted Resolved Mixed hyperlipidemia [E78.2] 02/26/2019 Essential (primary) hypertension [I10] 09/09/2017 Coronary artery disease involving [place] guo*04/07/2024 Insomnia [G47.00] 04/07/2024 Glaucoma [H40.9] 04/07/2024 Nonrheumatic aortic valve stenosis [I35.0] 04/07/2024 Acute on chronic diastolic congestive heart kayley*10/29/2024 Severe aortic stenosis [I35.0] 10/30/2024 S/P TAVR (transcatheter aortic valve replacemen*10/30/2024 Encounter Status:Closed by RAEVN ZAZUETA on 03/01/25 Normal [facility] CR - History AND Physicalon 01-14-2025 CR - History & Physical Normal [facility] Cardiac rehabilitation evalu ation reportOrdered By: Leighton Carrillo on 01-14-2025 Study report [facility] Cardiac Rehab [address] [place] [address] CR - History & Physical MR#: [id number] Acct: [id number] Name: GOGO WARE p #:[id number] : 1940 84 From: Leighton Martinez BS, RVT PCP: Dr. Eh Huddleston MD DOS: CR - History & Physical General Arrival date:: 01/14/25 Arrival time:: 10:09 Date of Referral:: 01/08/25 Date of CR Evaluation:: 01/14/25 Referring Physician: Dr. Odilon Wells Primary Diagnosis: S/P TAVR History of Present Cardiac Event Onset Date Heart valve replacement or repair:: Yes (10/30/24 onset) Medications Ambulatory Orders ?Medication ?Instructions ?Recorded brimonidine 0.2 % eye drops 2 drp EACH EYE BID glaucom a 11/25/17 dorzolamide 22.3 mg-timolol 6.8 1 drp EACH EYE BID gla ucoma 11/25/17 mg/mL eye drops aspirin 81 mg tablet,delayed 81 mg PO DAILY@0800 #30 t abs 11/28/17 release latanoprost 0.005 % eye drops 1 drp ophthalmic (eye) Q PM 12/17/19 valsartan 80 mg tablet 80 mg PO DAILY #90 tabs 02/26 atorvastatin 40 mg tablet 40 mg PO QHS #90 tabs carvedilol 12.5 mg tablet 12.5 mg PO BID #180 tabs 05/21 Allergies Allergies No Known Allergies Allergy (Verified 03/16/24 14:09) Sleep Disorder Evaluation Hx of Sleep Apnea: No Do you snore loudly (louder than talking or can be heard through closed doors)?:No Do you often feel tired/ fatigued/ sleepy during daytime?: No Has anyone observed you stop breathing during sleep?: No History of Hypertension (for STOP score): Yes STOP Results: Negative Advanced Directives Advanced Directives Do you have a Healthcare Power of Keymodule [employer] Supervisor?: Yes Living Will: Yes Advance Directives Information Provided: Yes Advance Directives on File: No DNR Order?:: No Past Medical History Covid-19 Screening Physicial Symptoms Other Clinical Concerns Exposure Risk Pertinent Comorbidities 65 years or older:: Yes Has a serious heart condition:: Yes Past Medical Illness Medical History Laceration of leg Closed head injury Abrasions of multiple sites Laceration of lip Pure hypercholesterolemia Nonrheumatic aortic (valve) stenosis Non-ST elevation (NSTEMI) myocardial infarction 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 Essential hypertension Seborrheic keratosis Generalized weakness Fall Past Surgical History Surgical History History of left heart catheterization (LHC) (~12/27/17) History of bilateral hip replacements Family History Summary Family History Father Diabetes Grandmother Colon cancer Social History Smoking History Smoking Status: Never smoker Alcohol Use Alcohol Usage: No Substance Abuse Hx Substance Use: No Occupation Occupation (List type of work in comments):: Retired Social Environment Status Marital Status: Current Living Arrangements Living Environment:: Alone Children How many children do you have?: 1 Do any of your children live nearby?: No Safety Do you feel safe in your surroundings?: Yes Assistance Do you need any assistance at home?: no Review of Systems Review of Systems Hints Review of Present Symptoms: Reports Appetite - Normal and Appetite - Special Diet; Denies Shortness of Breath at Rest, Shortness of Breath with Exertion, PVD, Operative Discomfort, Angina, Wound Healing, Dizziness/Lightheadedness, Fatigue, Heart Arrhythmia/Irregularities, Sleep - Normal or Sexual Changes Pain Is Patient Pain Free?: Yes Risk Factor Assessment Chief Complaint Chief Complaint: S/P TAVR Vital Signs Pulse Ox: 97 Blood Pressure: 128/53 Pulse Pulse Rate: 64 Hypertension Blood Pressure Sitting - Right Arm: 128/53 Obesity Height: 5 ft 5.5 in Weight:: 164 lb Weight in Pounds: 164.0 lbs Body Mass Index (BMI): 26.9 Nutritional Referral for Obesity: No Risk Stratification Risk Guidelines: Lowest Risk: Risk Factor for Smoking, Moderate Risk: Risk Factor for Diabetes, Risk Factor for Obesity, Risk Factor for Sedentary Lifestyle and Risk Factor for Depression and Highest Risk: Risk Factor for Dyslipidemia and Risk Factor for Hypertension For Smoking Smoking Risk Guidelines For Dyslipidemia Dyslipidemia Risk Guidelines For Diabetes Mellitus Diabetes Risk Guidelines For Obesity/Overweight Obesity/Overweight Risk Guidelines For Hypertension Hypertension Risk Guidelines For Sedentary Lifestyle Sedentary Lifestyle Risk Guidelines For Depression Depression Risk Guidelines Family History Family History Father Diabetes Grandmother Colon cancer Motivation Motivation to Participate On a scale of 1 to 10, how prepared are you to commit to attending program?: 10 What do you see as barriers to successfully being able to complete the program?:nothing What do you see as the benefits of succesfully completing the program? In other words, what (more content not included)... [facility] No Panel InformationOrdered By: Leighton Carrillo on 01-14-2025 [facility] Cardiac Rehab [address] [place] [address] CR - Individual Treatment Plan MR#: [id number] Acct: [id number] Name: GOGO WARE p #:[id number] : 1940 84 From: Leighton Martinez BS, RVT PCP: Dr. Eh Huddleston MD DOS: Diagnosis General Information Admitting Diagnosis: S/P TAVR Personal Learning Style:: Audio/Visual Barriers to Learning: No Barriers Stage of change r/t lifestyle modifications:: Contemplation Gave educational material for:: Treating Heart Disease, How The Heart Works, What it means to have Heart Disease, How Coronary Artery Disease is Diagnosed, Heart Procedures, What Heart Medications Do, Risk Factors & Modifications, Living an Active Life, Nutrition, Emotions & Heart Disease, Stress Management & Relaxation and Sleep Disorders & Heart Disease Education/Goals Cardiac Rehabilitation Goals Personal Goals: Initial Assessment: Improve energy level, Participate in home exercise program, Improve muscle strength and endurance and Control risk factors(learn risk factor modification) Scale for measuring improvement of personal goals Diagnosis & Disease Process Outcomes/Goals: Pt IDs own risk factors & lifestyle modifications by Session 10,Verbalizes symptoms of angina & response by session 3., Pt independently managesand Other Additional Outcomes/Goals: Plan/Interventions: Assist Pt to ID & engage in lifestyle modification to reduceCVD risk, Instruct on individual risk factors, Review symptoms of angina & emergency actions, Review secondary diagnosis & identify educational needs. and Other see comment 30 day Reassessments:: Not Met 30 day Reassessments:: Not Met 30 day Reassessments:: Not Met 30 day Reassessments:: Not Met Final Reassessments:: Not Met Safety Referral to Physical Therapy: No Referral to [facility] Case Management: No Fall Risk Assessed:: Yes Assistive Devices:: None Exercise - Initial Assessment Visit Date of Eval: 01/14/25 (initial eval) Mets: Pre-: >5 METS for 30 minutes by discharge Physician Prescribed Exercise Modalities: Treadmill, [employer] Airdyne AD-7, SciFit Stepper, [employer]Fit Pro-II Ergometer and [employer] Lateral Carmen Frequency: 3x/week for 12 weeks [36 sessions] Intensity: 60-80% of age predicted maximum heart rate reserve Duration: 30 - 45 minutes Current METSs:: 3 Target Heart Rate:: 81-101 Resting Blood Pressure: 128/53 EKG Type: SR with 1st degree AV block Outcomes & Goals Goals:: Verbalizes understanding of THR, RPE & goal METS by session 6, Documentsin home exercise log/reports 30 min aerobic 5 day/wk by DC, Demonstrates accurate pulse taking by DC and Other additional outcome/goals: see below Intervention & Plan Exercise Program Goals: Instruct on personal THR & RPE, Instruct on MET level & personal MET goal, Show patient to take own pulse /validate performance until accurate, Instruct on home exercise and Other additional plan/int Physical Activity Home Exercise Physical Activity - Home Exercise: Safe Exercise, Warm-up, Self-monitoring, Cool-Down, Home Exercise > 30 min Daily and Sitting Time <3 hours/daily Outcomes & Goals Outcomes/Goals: Demonstrates correct Warm-up/exercise Cool-Down (S3) if = 2.5 METs, Verbalizes symptoms of exercise intolerance by Session 3 (S3), Demonstratesafe equipment use (S3) & follows exercise prescrition (6) and Other: See below Intervention & Plan Plan/Intervention: Instruct warm-up & cool-down if exercising at > 2 METs, Instruct on symptoms of exercise intolerance & actions to take, Instruct & monitor on saf, Assess intial functional capacity & safety risk and Other See below Nutrition - Initial Assessment Program Goals Nutrition Program Goals Patient has diagnosis of Hyperlipidemia (ICD E78)?: Yes Visit Date of Eval: 01/14/25 (initial eval ) Cholesterol/Lipids (Other Core Measures) Determine presence & major risk factors that modify LDL goal: Hypertension or hypertensive medication, Low HDL cholesterol <40 mg/dL*, Family history of premature CHD in Male < 55 years: female <65 yearsFa and Age men > 45 years; women >/= 55 years Outcomes/Goals: Pt IDs own risk factors & lifestyle modifications by Session 10,Verbalizes symptoms of angina & response by session 3., Pt independently managesand Other Additional Outcomes/Goals: Intervention/Plan: Advocate for lipid panel cholesterol medication if applicable, Instruct on personal lipid levels & lipid goals/NCEP guidelines, Instruct on cholesterol and Other additional plan/int Diabetes (Other Core Measures) Diabetes Type: Not Applicable Weight Mgt (Other Care) Height: 5 ft 5.5 in Weight:: 164 lb BMI: 26.9 Diagnosis Overweight/Obesity BMI> 30% ICD-10 E66: No Diagnosis High BMI/Morbid Obesity BMI> 35% ICD-10 Z68: No Outcomes/Goals: Pt sets, maintains & shows weight loss goal & trend during rehaband Other additional outcomes/goals Intervention/Plan: Instruct on ideal BMI & set weight loss goal w/patient, Assist pt to ID & incorporate diet changes for weight loss by S9, Refer to Structured Weight Loss program as appropri (more content not included)... [facility] GO[facility] WARE ([id number]) 1940 F Date Time Provider Department 01/08/25 ODILON WELLS During your visit today, we recorded the following information about you: Lita Lora 01/08/2025 2:34 PM Signed Notes and reports sent to [facility] cardiac rehab, along with order Allergies As of Date: 01/08/2025 (No Known Allergies) Date Reviewed: 12/23/2024 Reviewed by: Farhana Alejandra MA - Fully Assessed Reason for Visit: notes and reports [Other] Prescriptions as of 01/08/2025 - clopidogrel (PLAVIX) 75 mg tablet Take 1 tablet by mouth once daily. - atorvastatin (LIPITOR) 40 mg tablet Take 1 tablet by mouth daily at bedtime. - brimonidine (ALPHAGAN) 0.2 % ophthalmic solution Use 2 Drops in the left eye two times a day. - latanoprost (XALATAN) 0.005 % ophthalmic solution Use 1 Drop in the left eye daily at bedtime. - uyixtwi-umyvlnxrg-qyuqbjmm,PF (BMX-EFDE-WAM) 0.5-0.15-2 % ophthalmic solution Use 1 Drop in the left eye two times a day. - valsartan (DIOVAN) 160 mg tablet Take 0.5 tablets by mouth once daily. - carvedilol (COREG) 12.5 mg tablet Take 1 tablet by mouth twice daily with meals. - aspirin, enteric coated (ASPIRIN, ENTERIC COATED) 81 mg EC tablet Take 81 mg by mouth once daily. - temazepam (RESTORIL) 30 mg cap Take 30 mg by mouth at bedtime as needed. Meds Comments as of 01/05/2013: PT STATES SHE USES ANOTHER DROP, GREEN TOP, AT NIGHT OU Problem List As Of Date 01/08/2025 Noted Resolved Mixed hyperlipidemia [E78.2] 02/26/2019 Essential (primary) hypertension [I10] 09/09/2017 Coronary artery disease involving [place] guo*04/07/2024 Insomnia [G47.00] 04/07/2024 Glaucoma [H40.9] 04/07/2024 Nonrheumatic aortic valve stenosis [I35.0] 04/07/2024 Acute on chronic diastolic congestive heart kayley*10/29/2024 Severe aortic stenosis [I35.0] 10/30/2024 S/P TAVR (transcatheter aortic valve replacemen*10/30/2024 Encounter Status:Closed by LITA LORA on 01/08/25 [facility] Keri 12-24-2024 CNPN Telephone (CATHMN) GOGO WARE ([id number]) 1940 F Date Time Provider Department 12/24/24 ODILON WELLS During your visit today, we recorded the following information about you: Allergies As of Date: 12/24/2024 (No Known Allergies) Date Reviewed: 12/23/2024 Reviewed by: Farhana Alejandra MA - Fully Assessed Prescriptions as of 12/24/2024 - iv contrast (will be provided with radiology test) CT Cardiac - No IV access, insert saline lock prior to the sedation, infusion, injection for imaging exam. Discontinue saline lock post exam. If Pt. has a central line or IVAD, may access for administration according to line specific nursing protocol. Once exam is complete flush line and de-access according to line specific nursing protocol in the CT contrast administration guidelines link. - clopidogrel (PLAVIX) 75 mg tablet Take 1 tablet by mouth once daily. - atorvastatin (LIPITOR) 40 mg tablet Take 1 tablet by mouth daily at bedtime. - brimonidine (ALPHAGAN) 0.2 % ophthalmic solution Use 2 Drops in the left eye two times a day. - latanoprost (XALATAN) 0.005 % ophthalmic solution Use 1 Drop in the left eye daily at bedtime. - yzcsitb-ooubjtcpf-ydoaxsjh,PF (BIM-FRDC-HWN) 0.5-0.15-2 % ophthalmic solution Use 1 Drop in the left eye two times a day. - valsartan (DIOVAN) 160 mg tablet Take 0.5 tablets by mouth once daily. - carvedilol (COREG) 12.5 mg tablet Take 1 tablet by mouth twice daily with meals. - aspirin, enteric coated (ASPIRIN, ENTERIC COATED) 81 mg EC tablet Take 81 mg by mouth once daily. - temazepam (RESTORIL) 30 mg cap Take 30 mg by mouth at bedtime as needed. Meds Comments as of 01/05/2013: PT STATES SHE USES ANOTHER DROP, GREEN TOP, AT NIGHT OU Problem List As Of Date 12/24/2024 Noted Resolved Mixed hyperlipidemia [E78.2] 02/26/2019 Essential (primary) hypertension [I10] 09/09/2017 Coronary artery disease involving [place] guo*04/07/2024 Insomnia [G47.00] 04/07/2024 Glaucoma [H40.9] 04/07/2024 Nonrheumatic aortic valve stenosis [I35.0] 04/07/2024 Acute on chronic diastolic congestive heart kayley*10/29/2024 Severe aortic stenosis [I35.0] 10/30/2024 S/P TAVR (transcatheter aortic valve replacemen*10/30/2024 Encounter Status:Closed by IRENE BURR on 12/24/24 [facility] ([id number]) 1940 F Date Time Provider Department 12/24/24 ODILON WELLS HVICTR During your visit today, we recorded the following information about you: Chuckie Wells RN 12/24/2024 1:24 PM Addendum [facility] Phone Encounter DATE of SERVICE: 12/24/2024 TIME of SERVICE: 1:03 PM Status: Non-urgent, needs attention Service/Provider: Odilon Clifton MD Reason for call: Follow-up Appointment Contact information: [phone] Resolution: Sent to karuna Comments: Pt family member is trying to schedule below papi and CT per instructions from yesterdays visit, see below. She states she has been transferred multiple times and still not been able to schedule appointment. Per OVN 12/23 with Deng Smith Follow up/Disposition: Cardiac rehab referral placed CT Cardiac W/ IV Contrast to assess for HALT--will have follow up appointment with Interventional Cariology PAPI directly afterwards---[phone] With cardiology as scheduled/requested- sooner if needed. Will need Arterial Doppler and PVR at 3 mo Chuckie Wells RN Date of Resolution: 12/24/2024 Time of Resolution 1:03 PM Lucy Mccall APRN.MEDICAL RECORDS SPECIALIST 12/24/2024 2:10 PM Signed Sent to scheduling. Lucy Mccall APRN.JACEY Allergies As of Date: 12/24/2024 (No Known Allergies) Date Reviewed: 12/23/2024 Reviewed by: Farhana Alejandra MA - Fully Assessed Prescriptions as of 12/24/2024 - iv contrast (will be provided with radiology test) CT Cardiac - No IV access, insert saline lock prior to the sedation, infusion, injection for imaging exam. Discontinue saline lock post exam. If Pt. has a central line or IVAD, may access for administration according to line specific nursing protocol. Once exam is complete flush line and de-access according to line specific nursing protocol in the CT contrast administration guidelines link. - clopidogrel (PLAVIX) 75 mg tablet Take 1 tablet by mouth once daily. - atorvastatin (LIPITOR) 40 mg tablet Take 1 tablet by mouth daily at bedtime. - brimonidine (ALPHAGAN) 0.2 % ophthalmic solution Use 2 Drops in the left eye two times a day. - latanoprost (XALATAN) 0.005 % ophthalmic solution Use 1 Drop in the left eye daily at bedtime. - kdzrpkc-rcveykxjh-snfplunc,PF (YSF-YYAZ-FFN) 0.5-0.15-2 % ophthalmic solution Use 1 Drop in the left eye two times a day. - valsartan (DIOVAN) 160 mg tablet Take 0.5 tablets by mouth once daily. - carvedilol (COREG) 12.5 mg tablet Take 1 tablet by mouth twice daily with meals. - aspirin, enteric coated (ASPIRIN, ENTERIC COATED) 81 mg EC tablet Take 81 mg by mouth once daily. - temazepam (RESTORIL) 30 mg cap Take 30 mg by mouth at bedtime as needed. Meds Comments as of 01/05/2013: PT STATES SHE USES ANOTHER DROP, GREEN TOP, AT NIGHT OU Problem List As Of Date 12/24/2024 Noted Resolved Mixed hyperlipidemia [E78.2] 02/26/2019 Essential (primary) hypertension [I10] 09/09/2017 Coronary artery disease involving [place] guo*04/07/2024 Insomnia [G47.00] 04/07/2024 Glaucoma [H40.9] 04/07/2024 Nonrheumatic aortic valve stenosis [I35.0] 04/07/2024 Acute on chronic diastolic congestive heart kayley*10/29/2024 Severe aortic stenosis [I35.0] 10/30/2024 S/P TAVR (transcatheter aortic valve replacemen*10/30/2024 Encounter Status:Closed by CHUCKIE WELLS on 12/24/24 Normal [facility] CBC panel Auto (Bld)on 12-23 Erythrocyte distribution width (RBC) [Ratio] 13.0 % Normal 11.5-15.0 [facility] Comment on above: Order Comment: Terri mittal Type: BLOOD SPECIMEN Ordering Facility: [facility] Address: [address] [place] [address] Performed By: #### 2 4323-8, 84684-5 #### [facility] CLIA [id number] [address] [place] [address] [place] Hematocrit (Bld) [Volume fraction] 35.6 % Low 36.0-46.0 [facility] Comment on above: Order Comment: Rahuli men Type: BLOOD SPECIMEN Ordering Facility: [facility] Address: [address] [place] [address] Performed By: #### 2 4323-8, 50916-0 #### [facility] CLIA [id number] [address] [place] [address] [place] Hemoglobin (Bld) [Mass/Vol] 11.7 g/dL Normal 11.5-15.5 [facility] Comment on above: Order Comment: Speci men Type: BLOOD SPECIMEN Ordering Facility: [facility] Address: [address] [place] [address] Performed By: #### 2 4323-8, 83547-2 #### [facility] CLIA [id number] [address] [place] [address] [place] MCH (RBC) [Entitic mass] 30.4 pg Normal 26.0-34.0 [facility] Comment on above: Order Comment: Speci men Type: BLOOD SPECIMEN Ordering Facility: [facility] Address: [address] [place] [address] Performed By: #### 2 4323-8, 72192-3 #### [facility] CLIA [id number] [address] [place] [address] [place] MCHC (RBC) [Mass/Vol] 32.9 g/dL Normal 30.5-36.0 [facility] Comment on above: Order Comment: Speci men Type: BLOOD SPECIMEN Ordering Facility: [facility] Address: [address] [place] [address] Performed By: #### 2 4323-8, 67877-5 #### [facility] CLIA [id number] [address] [place] [address] [place] MCV (RBC) [Entitic vol] 92.5 fL Normal 80.0-100.0 [facility] Comment on above: Order Comment: Speci men Type: BLOOD SPECIMEN Ordering Facility: [facility] Address: [address] [place] [address] Performed By: #### 2 4323-8, 78113-9 #### [facility] CLIA [id number] [address] [id number] [address] [place] Nucleated RBC (Bld) [#/Vol] 10*3/uL Normal <0.01 [facility] Comment on above: Order Comment: Speci men Type: BLOOD SPECIMEN Ordering Facility: [facility] Address: [address] [place] [address] Performed By: #### 2 4323-8, 59821-7 #### [facility] CLIA [id number] [address] [place] [address] [place] Platelet mean volume (Bld) [Entitic vol] 10.7 fL Normal 9.0-12.7 [facility] Comment on above: Order Comment: Speci men Type: BLOOD SPECIMEN Ordering Facility: [facility] Address: [address] [place] [address] Performed By: #### 2 4323-8, 37853-9 #### [facility] CLIA [id number] [address] [place] [address] [place] Platelets (Bld) [#/Vol] 142 10*3/uL Low 150-400 [facility] Comment on above: Order Comment: Speci men Type: BLOOD SPECIMEN Ordering Facility: [facility] Address: [address] [place] [address] Performed By: #### 2 4323-8, 99166-9 #### [facility] CLIA [id number] [address] [place] [address] [place] RBC (Bld) [#/Vol] 3.85 10*6/uL Low 3.90-5.20 [facility] Comment on above: Order Comment: Speci men Type: BLOOD SPECIMEN Ordering Facility: [facility] Address: [address] [place] [address] Performed By: #### 2 4323-8, 29647-8 #### [facility] CLIA [id number] [address] [place] [address] [place] WBC (Bld) [#/Vol] 6.79 10*3/uL Normal 3.70-11.00 [facility] Comment on above: Order Comment: Speci men Type: BLOOD SPECIMEN Ordering Facility: [facility] Address: [address] [place] [address] Performed By: #### 2 4323-8, 45281-8 #### [facility] CLIA [id number] [address] [place] [address] [facility] CNOVon 12-23-2024 CNOV Office Visit (CATHMN ) GOGO WARE ([id number]) 1940 F Date Time Provider Department 12/23/24 1:30 PM DENG SMITH CATHMN During your visit today, we recorded the following information about you: Pulse Respiration Blood pressure Weight 64/minute 18/minute 128/53 74.4 kg Height 1.651 m Deng Smith, CATEGORY MANAGER.MEDICAL RECORDS SPECIALIST 12/23/2024 2:15 PM Signed [facility] Pam L[facility]pez Department of Cardiovascular Medicine SECTION OF INTERVENTIONAL CARDIOLOGY OUTPATIENT VISIT DATE December 23, 2024 OUTPATIENT VISIT TYPE ESTABLISHED FOLLOW UP Primary Security Professionals: Russell Donald MD Chief Complaint: Patient here for cardiac follow up evaluation History of Present Illness: SEE ASSESSMENT IMPRESSION CARDIOVASCULAR MEDICINE TESTING: I have personally reviewed the above testing. Physical Examination: BP 128/53 Pulse 64 Resp 18 Ht 165.1 cm (5' 5") Wt 74.4 kg (164 lb) SpO2 97% BMI 27.29 kg/m? General: no acute distress- Skin warm and dry Neck- no JVP or bruits Lungs- breath sounds clear throughout. Heart- no murmur Abd- Soft nontedner, +BSx4 ext- no edema ACCESS SITE ASSESSMENT: Arterial Access SITES: Upper extremity - RUE; Clean, dry and intact Groin - right; Clean, dry and intact Motor Affected Extremity: muscle strength 5/5 both upper and lower extremities Sensory Examination: Neuro/Sensation is intact throughout Pulses/Signals: Radial Right: Palpable +2 - Left: Palpable +2 Posterior Tibial Right: Palpable +2 - Left: Palpable +2 Musculoskeletal: No deformities Neurologic/Psychiatric: Oriented to time, place AND person, MAEx4 and No gross focal neurologic deficits ASSESSMENT/ IMPRESSION Patient is a 84 year old female who presents for follow up visit today with pmhx of: CAD (cath in 2018 showing moderate RCA and LAD disease, RCA iFR 0.96 and LAD iFR was abnormal at 0.84 (patient opted not to proceed with PCI of mid LAD, hence being medically managed) Severe aortic stenosis 10/30/2024 s/p TAVR 23 S3 and Stenting of the R-NURSE RESEARCH with a 8.0 x 39 mm [place] VBX Balloon expandable stent, RLE Arterial Doppler and PVR completed, right NURSE RESEARCH stent patent HFpEF (EF 64%) HTN HLD Glaucoma (left eye completely blind) Since last vist has been feeling well Does not eat any sugar. Uses avocado and olive oils. She tries to eat salmon rather than red meat. Denies recent ED visit/hospitalizations, chest pain, NAPIER, orthopnea, palpitations, edema, syncope, fevers, chills, nausea, vomiting, ABD pain, bloody urine, bloody/dark stool, acute vision changes. PLAN AND RECOMMENDATIONS: - will need DAPT for at least 6 months - will need Arterial Doppler and PVR at 1 mo, 3 mo,6 mo and 12 months after procedure. Rpnihhn79 mg daily DAPT plavix 75 mg daily starting 10/31/2024 AC N/A Post procedural antibiotic for 3-7 days and the SBE prophylaxis. Beta Madhu: coreg 12.5 mg twice daily ACEI/ARB/ARNI valsartan 80 mg daily SGLT2 inhibitor N/A Diuretic: N/A Aldosterone antagonist: N/A Statin lipitor 40 mg daily Additional Medications: Eye drops Restoril 30 mg as needed before bed Tele/EKG (Images/strips reviewed) Sr w/ 1st degree HB Device therapy: N/A Aggressive risk factor modification as appropriate. -- BP Goal < 130/80 with nonpharmacologic and medical therapy -- LDL goal 50% reduction AND level < 55-70 mg/dL using max tolerated statin +/- adjuvant therapy -- HbA1C < 7% -- Healthy diet and exercise +/- weight loss if appropriate. - Smoking and alcohol abstinence/cessation, if applicable Follow up/Disposition: Cardiac rehab referral placed CT Cardiac W/ IV Contrast to assess for HALT--will have follow up appointment with Interventional Cariology [facility] directly afterwards---[phone] With cardiology as scheduled/requested- sooner if needed. Will need Arterial Doppler and PVR at 3 mo Follow up with PCP for low platelets Education/Counseling: We have discussed the following pharmacological measures during this visit: Reviewed all medications. Patient is able to get medications with out issues Reviewed any possible side effects of medications. Take ALL medications as prescribed. We discussed the following non-pharmacological measures during this visit: Diet: Eat a low-salt (sodium) diet Read food labels for sodium content. Mediterranean Diet Weight: Check for swelling in your feet, ankles, legs, and stomach. Weigh yourself each morning before breakfast. Compare If your weight goes up or down 4lbs from your dry weight, call your dermatology physician assistant Exercise: Be active and exercise every day. Smoking and alcohol abstinence/cessation, if applicable Heart Failure Education Booklet: information given previously. Please Visit [email or web address] Questions or Concerns after you go home? Please call Nurse foundation coordinator marci (more content not included)... Normal [facility] Comprehensive metabolic 2000 panelon 12-23-2024 Albumin [Mass/Vol] 4.2 g/dL Normal 3.9-4.9 [facility] Comment on above: Order Comment: Rahuli kyrie Type: BLOOD SPECIMEN Ordering Facility: [facility] Address: [address] [place] [address] Performed By: #### 2 4323-8, 83578-2 #### [facility] CLIA [id number] [address] [place], [place] [address] [place] [address] [place] ALP [Catalytic activity/Vol] 76 U/L Normal 34-123 [facility] Comment on above: Order Comment: Speci men Type: BLOOD SPECIMEN Ordering Facility: [facility] Address: [address] [place] [address] Performed By: #### 2 4323-8, 45407-0 #### [facility] CLIA [id number] [address] [place], [place] [address] [place] ALT [Catalytic activity/Vol] 12 U/L Normal 7-38 [facility] Comment on above: Order Comment: Speci men Type: BLOOD SPECIMEN Ordering Facility: [facility] Address: [address] [place] [address] Performed By: #### 2 4323-8, 10029-0 #### [facility] CLIA [id number] [address] [place] [address] [place] Anion gap [Moles/Vol] 11 mmol/L Normal 8-15 [facility] Comment on above: Order Comment: Speci men Type: BLOOD SPECIMEN Ordering Facility: [facility] Address: [address] [place] [address] Performed By: #### 2 4323-8, 67141-6 #### [facility] CLIA [id number] [address] [place] [address] [place] AST [Catalytic activity/Vol] 41 U/L High 13-35 [facility] Comment on above: Order Comment: Speci men Type: BLOOD SPECIMEN Ordering Facility: [facility] Address: [address] [place] [address] Performed By: #### 2 4323-8, 94118-0 #### [facility] CLIA [id number] [address] [place] [address] [place] Bilirubin [Mass/Vol] 0.3 mg/dL Normal 0.2-1.3 [facility] Comment on above: Order Comment: Speci men Type: BLOOD SPECIMEN Ordering Facility: [facility] Address: [address] [place] [address] Performed By: #### 2 4323-8, 01314-4 #### [facility] CLIA [id number] [address] [place] [address] [place] Calcium [Mass/Vol] 9.8 mg/dL Normal 8.5-10.2 [facility] Comment on above: Order Comment: Speci men Type: BLOOD SPECIMEN Ordering Facility: [facility] Address: [address] [place] [address] Performed By: #### 2 4323-8, 88006-6 #### [facility] CLIA [id number] [address] [place] [address] [place] Chloride [Moles/Vol] 104 mmol/L Normal 98-107 [facility] Comment on above: Order Comment: Speci men Type: BLOOD SPECIMEN Ordering Facility: [facility] Address: [address] [place] [address] Performed By: #### 2 4323-8, 43196-5 #### [facility] CLIA [id number] [address] [place] [address] [place] CO2 [Moles/Vol] 25 mmol/L Normal 22-30 [facility] Comment on above: Order Comment: Speci men Type: BLOOD SPECIMEN Ordering Facility: [facility] Address: [address] [place] [address] Performed By: #### 2 4323-8, 37467-1 #### [facility] CLIA [id number] [address] [place] [address] [place] Creatinine [Mass/Vol] 0.85 mg/dL Normal 0.58-0.96 [facility] Comment on above: Order Comment: Speci men Type: BLOOD SPECIMEN Ordering Facility: [facility] Address: [address] [place] [address] Performed By: #### 2 4323-8, 99249-5 #### [facility] CLIA [id number] [address] [place] [address] [place] Creatinine and Glomerular filtration rate.predicted panel (S/P/Bld) 67 mL/min/1.73m??? Normal >=60 [facility] Comment on above: Order Comment: Speci men Type: BLOOD SPECIMEN Ordering Facility: [facility] Address: [address] [place] [address] Result Comment: Leanne mated Glomerular Filtration Rate (eGFR) is calculated using the 2020 CKD-EPI creatinine equation. This equation utilizes serum creatinine, sex, and age as parameters. The creatinine assay has traceable calibration to isotope dilution-mass spectrometry. Refer to KDIGO guidelines for clinical interpretation. In patients with unstable renal function, e.g. those with acute kidney injury, the eGFR may not accurately reflect actual GFR. Performed By: #### 2 4323-8, 58719-8 #### [facility] CLIA [id number] [address] [place] [address] [place] Glucose [Mass/Vol] 99 mg/dL Normal 74-99 [facility] Comment on above: Order Comment: Terri mittal Type: BLOOD SPECIMEN Ordering Facility: [facility] Address: [address] [place] [address] Result Comment: The [place] [employer] (ADA) provides guidance for cutoff values for fasting glucose and random glucose. The ADA defines fasting as no caloric intake for at least 8 hours. Fasting plasma glucose results between 100 to 125 mg/dL indicate increased risk for diabetes (prediabetes). Fasting plasma glucose results greater than or equal to 126 mg/dL meet the criteria for diagnosis of diabetes. In the absence of unequivocal hyperglycemia, results should be confirmed by repeat testing. In a patient with classic symptoms of hyperglycemia or hyperglycemic crisis, random plasma glucose results greater than or equal to 200 mg/dL meet the criteria for diagnosis of diabetes. Reference: Standards of Medical Care in Diabetes 2016, [place] [employer] Association. Diabetes Care. 2016.39(Suppl 1). Performed By: #### 2 4323-8, 41307-7 #### [facility] CLIA [id number] [address] [place] [address] [place] Potassium [Moles/Vol] 4.7 mmol/L Normal 3.7-5.1 [facility] Comment on above: Order Comment: Terri [facility] Type: BLOOD SPECIMEN Ordering Facility: [facility] Address: [address] [place] [address] Performed By: #### 2 4323-8, 88934-0 #### [facility] CLIA [id number] [address] [place] [address] [place] Protein [Mass/Vol] 7.1 g/dL Normal 6.3-8.0 [facility] Comment on above: Order Comment: Speci men Type: BLOOD SPECIMEN Ordering Facility: [facility] Address: [address] [place] [address] Performed By: #### 2 4323-8, 09435-4 #### [facility] IA [id number] [address] [place] [address] [place] Sodium [Moles/Vol] 140 mmol/L Normal 136-144 [facility] Comment on above: Order Comment: Speci men Type: BLOOD SPECIMEN Ordering Facility: [facility] Address: [address] [place] [address] Performed By: #### 2 4323-8, 24524-7 #### [facility] IA [id number] [address] [place] [address] [place] Urea nitrogen [Mass/Vol] 27 mg/dL High 7-21 [facility] Comment on above: Order Comment: Speci men Type: BLOOD SPECIMEN Ordering Facility: [facility] Address: [address] [place] [address] Performed By: #### 2 4323-8, 95066-0 #### [facility] IA [id number] [address] [place], [place] [address] [place] ECG COMPLETEon 12-23-2024 ECG COMPLETE Ventricular Rate : 6 6 BPM Atrial Rate : 66 BPM P-R Interval : 212 ms QRS Duration : 92 ms Q-T Interval : 398 ms QTC Calculation(Bazett) : 417 ms Calculated P [place] : 70 degrees Calculated R [place] : 23 degrees Calculated T [place] : 76 degrees SINUS RHYTHM WITH 1ST DEGREE AV BLOCK OTHERWISE NORMAL ECG Confirmed by AZUL NAILS MD ([id number]) on 01/05/2025 8:44:10 PM NAME : GOGO WARE PID : [id number] : 1940 Gender : Female Race : ORD : [id number] Procedure Date : Dec 23 2024 09:05:41 Edit Date : Jan 05 2025 20:44:15 Diagnosis: SINUS RHYTHM WITH 1ST DEGREE AV BLOCK OTHERWISE NORMAL ECG Confirmed by AZUL NAILS MD ([id number]) on 01/05/2025 8:44:10 PM Test Reason : Location : [address] : [place] [address] Overread By : AZUL NAILS MD Edited By : AZUL NAILS MD Referred By : DENG KOENIG Acquired by : ANICETO REYNOLDS [facility] ECHOon 12-23-2024 Echocardiography Echocardiography Rep ort: Transthoracic Echo [place] [address] Date of service: 12/23/2024 12:20:08 PM PROFESSOR OF ARCHAEOLOGY Ordering physician: ODILON WELLS Indication: TAVR Technologist: Francisco Avila Interpreting physician: Lianne Long MD PATIENT: Name: MRS. GOGO WARE : 1940 Age: 84 years Gender: F History of hypertension, dyslipidemia, coronary artery disease and valvular heart disease. Previous cardiovascular interventions: TAVR (10/30/2024) Primary rhythm: sinus. Height: 165.10 cm BSA: 1.86 m Weight: 75.43 kg BMI: 27.7 kg/m Heart rate 69 bpm Blood pressure 133/55 mmHg Technically difficult exam due to body habitus. Color Doppler was utilized to interrogate the cardiac valves assessed and spectral Doppler was utilized to determine the flow velocities and pressure gradients reported in this exam. MEASUREMENTS: Value Indexed Normal Max aortic dimension 3.4 cm Ao < 3.8 Left atrial volume 63 ml (Devi's) 34 ml/m Abigail <= 34 LV ID (diastole) 4.6 cm (2D) 2.47 cm/m LV ID (systole) 2.8 cm (2D) 1.51 cm/m IVS, leaflet tips 1.0 cm (2D) Posterior wall thickness 1.0 cm (2D) Left ventricular mass 159 g (2D) 85 g/m LV stroke volume 55 ml (2D biplane) LVOT stroke volume 153 ml 84 ml/m LV end diastolic volume 85 ml (2D biplane) 45.9 ml/m 29<=EDVi<62 LV end systolic volume 30 ml (2D biplane) 16.2 ml/m Ejection Fraction 65 % (2D biplane) EF > 54 FINDINGS: LEFT VENTRICLE The left ventricle is normal in size. Left ventricular systolic function is normal. Indeterminate left ventricular diastolic function. Mitral annular lateral E/e': 11.4. Mitral annular septal E/e': 17.4. Wall Motion: All scored segments are normal. RIGHT VENTRICLE The right ventricle is normal in size. Right ventricular systolic function is normal. RV systolic tissue Doppler velocity is 15.9 cm/s. Tricuspid annular displacement is 2.6 cm. Estimated right ventricular systolic pressure is 30 mmHg consistent with normal pulmonary artery pressures. Estimated right atrial pressure is 3 mmHg based on IVC assessment. LEFT ATRIUM The left atrial cavity is mildly dilated. Pulmonary Veins: The pulmonary venous pattern showed normal systolic flow. RIGHT ATRIUM The right atrial cavity is normal in size. Inferior Vena Cava: The inferior vena cava appears normal measuring 1.3 cm. The vessel decreases greater than 50 percent with inspiration. MITRAL VALVE There is trace mitral valve regurgitation. There is mild thickening. The pressure half time is 96 msec. The peak mitral E/A ratio is 0.86. The average mitral E/e' ratio is 14.4. The mitral flow deceleration time is 331 msec. TRICUSPID VALVE The tricuspid valve leaflets are structurally normal. There is trace (trace - 1+) tricuspid valve regurgitation. AORTIC VALVE Newell S3 Ultra prosthetic valve size #23. There is trace aortic valve regurgitation. S/P transcatheter aortic valve replacement. The peak gradient is 37 mmHg (peak velocity = 303.0 cm/s). The mean gradient is 21 mmHg. The LVOT mean velocity is 106.0 cm/s. The LVOT diameter is 2.3 cm. The aortic VTI is 72.1 cm. The mean velocity in the aortic valve is 214.0 cm/s. The dimensionless valve index is 0.51. AV area is 2.12 cm (1.14 cm /m ) by continuity, VTI. The LVOT stroke volume index is 84 ml/m . PULMONIC VALVE The pulmonic valve was not seen or not interrogated. There is trace pulmonic valve regurgitation. AORTA The visualized aorta is normal in size. Measurements - Mid ascending aorta 3.4 cm. PULMONARY ARTERIES The pulmonary arteries are unseen or not interrogated. INTERATRIAL SEPTUM There is no evidence of intracardiac shunting as detected by Doppler. INTERVENTRICULAR SEPTUM There is no flow through the interventricular septum as detected by Doppler. PERICARDIUM There is no pericardial effusion. CONCLUSIONS: - Technically difficult exam due to body habitus. - Exam indication: TAVR - The left ventricle is normal in size. Left ventricular systolic function is normal. EF = 65 5% (2D biplane) Indeterminate left ventricular diastolic function. - The right ventricle is normal in size. Right ventricular systolic function is normal. - The left atrial cavity is mildly dilated. - S/P transcatheter aortic valve replacement. Newell S3 Ultra prosthetic aortic valve (size #23). There is trace aortic valve regurgitation. The peak gradient is 37 mmHg, the mean gradient is 21 mmHg and the dimensionless valve index is 0.51. - Exam was compared with the prior [facility] echocardiographic exam performed on 10/30/2024. Prior Pk/mn gradient 19/11mmHg. * * * Final * * * [employer] [facility] : [id number] goDynamicsSISUID Normal [facility] Natriuretic peptide.B prohormone N-Terminal [Mass/Vol] 516 pg/mL High <450 [facility] Comment on above: Order Comment: Speci men Type: BLOOD SPECIMEN Ordering Facility: [facility] Address: [address] [place] [address] Performed By: #### 2 4323-8, 34118-1 #### [facility] CLIA [id number] [address] [place] [address] [place] PVR ANK/CEE/TOE [facility] on 12-23-2024 PVR ANK/CEE/TOE [facility] Non-Invasive Vascular Laboratory [facility] J35 Lower Extremity Arterial Physiology Study Bilateral/Complete Date of service/time: 12/23/2024 9:37:26 AM Name: MRS. GOGO WARE Date of : 1940 Age: 84 years Gender: F Clinical Indication Follow up: right common femoral artery stenting 10/30/2024. TECHNIQUE -------- An arterial physiological examination was performed, including measurement of blood pressures using continuous wave Doppler and recording of plethysmographic with or without Doppler waveforms at the below-mentioned limb segments. FINDINGS -------- RIGHT SIDE AT REST Right Pressures Brachial: 139 mmHg Ankle dorsalis pedis: 162 mmHg VARSHA: 1.13 Ankle posterior tibial: 146 mmHg VARSHA: 1.02 Right PVR Waveforms Ankle: Normal. Transmetatarsal: Normal. Digit: Normal. LEFT SIDE AT REST Left Pressures Brachial: 143 mmHg Ankle dorsalis pedis: 137 mmHg VARSHA: 0.96 Ankle posterior tibial: 146 mmHg VARSHA: 1.02 Left PVR Waveforms Ankle: Normal. Transmetatarsal: Normal. Digit: Normal. IMPRESSION Compared to prior study of 10/30/2024, there is no significant change. RIGHT SIDE Resting right ankle brachial index: 1.13 Normal ankle brachial index at rest in the right leg. Right ankle: Normal at rest. LEFT SIDE Resting left ankle brachial index: 1.02 Normal ankle brachial index at rest in the left leg. Left ankle: Normal at rest. Technologist: Samantha Gonzalez RVT Ordering physician: DENG KOENIG Interpreting physician: Nilay Loredo DO, RVT, RPVI Final [employer] [facility] : [id number] ID See Link below for Image [facility] LEG ARTERIAL PERIPH UNL V LABon 12-23-2024 LEG ARTERIAL PERIPH UNL VAS LAB Non-Invasive Vascular Laboratory [facility] J35 Lower Extremity Arterial Duplex Unilateral - Right Date of service/time: 12/23/2024 10:14:54 AM Name: MRS. GOGO WARE Date of : 1940 Age: 84 years Gender: F Clinical Indication Follow up: right common femoral artery stenting 10/30/2024. TECHNIQUE -------- An arterial duplex ultrasound examination was performed, including grayscale imaging and color Doppler and spectral Doppler examination of the below mentioned arteries. FINDINGS -------- RIGHT ARTERIES External iliac distal: PSV: 157 cm/s. EDV: 0 cm/s. Multiphasic waveform. Common femoral proximal: with stent. PSV: 153 cm/s. EDV: 0 cm/s. Multiphasic waveform. Common femoral mid: with stent. PSV: 178 cm/s. EDV: 0 cm/s. Multiphasic waveform. Common femoral distal: PSV: 114 cm/s. EDV: 0 cm/s. Multiphasic waveform. Profunda femoral proximal: PSV: 89 cm/s. EDV: 0 cm/s. Multiphasic waveform. Superficial femoral origin: PSV: 125 cm/s. EDV: 0 cm/s. Multiphasic waveform. Superficial femoral proximal: PSV: 111 cm/s. EDV: 0 cm/s. Multiphasic waveform. Superficial femoral mid: PSV: 117 cm/s. EDV: 0 cm/s. Multiphasic waveform. Superficial femoral distal: PSV: 86 cm/s. EDV: 0 cm/s. Multiphasic waveform. Popliteal proximal: PSV: 111 cm/s. EDV: 0 cm/s. Multiphasic waveform. Popliteal mid: PSV: 91 cm/s. EDV: 0 cm/s. Multiphasic waveform. Popliteal distal: PSV: 92 cm/s. EDV: 0 cm/s. Multiphasic waveform. VESSEL/GRAFT Tibioperoneal trunk : PSV: 51 cm/s. EDV: 0 cm/s. Multiphasic waveform. Posterior tibial artery proximal: PSV: 37 cm/s. EDV: 0 cm/s. Multiphasic waveform. Posterior tibial artery mid: PSV: 56 cm/s. EDV: 0 cm/s. Multiphasic waveform. Posterior tibial artery distal: PSV: 10 cm/s. EDV: 0 cm/s. Monophasic, high resistive waveform. Peroneal artery proximal: PSV: 46 cm/s. EDV: 0 cm/s. Multiphasic waveform. Peroneal artery mid: PSV: 44 cm/s. EDV: 0 cm/s. Multiphasic waveform. Peroneal artery distal: PSV: 40 cm/s. EDV: 0 cm/s. Multiphasic waveform. Anterior tibial artery proximal: PSV: 97 cm/s. EDV: 0 cm/s. Multiphasic waveform. Anterior tibial artery mid: PSV: 121 cm/s. EDV: 0 cm/s. Monophasic, high resistive waveform. Anterior tibial artery mid: PSV: 296 cm/s. EDV: 0 cm/s. Multiphasic waveform. Anterior tibial artery distal: PSV: 77 cm/s. EDV: 0 cm/s. Monophasic, high resistive waveform. Anterior tibial artery distal: PSV: 199 cm/s. EDV: 0 cm/s. Monophasic, high resistive waveform. IMPRESSION Compared to prior study of 10/30/2024, prior exam was a limited evaluation. The right common femoral artery stent is patent on today's exam. RIGHT SIDE External iliac artery distal: plaque noted without evidence of hemodynamically significant stenosis . Common femoral artery proximal to mid: patent . Patent stent noted. Common femoral artery distal: plaque noted without evidence of hemodynamically significant stenosis . Profunda femoral artery proximal: plaque noted without evidence of hemodynamically significant stenosis . Superficial femoral artery proximal to distal: plaque noted without evidence of hemodynamically significant stenosis . Popliteal artery throughout: plaque noted without evidence of hemodynamically significant stenosis . Tibioperoneal trunk : plaque noted without evidence of hemodynamically significant stenosis . Posterior tibial artery throughout: plaque noted without evidence of hemodynamically significant stenosis . Visualized in segments at mid calf. Peroneal artery throughout: plaque noted without evidence of hemodynamically significant stenosis . Anterior tibial artery mid: 50-99% stenosis . Anterior tibial artery distal: 50-99% stenosis . Technologist: Samantha Gonzalez RVT Ordering physician: DENG KOENIG Interpreting physician: Nilay Loredo DO, RVT, RPVI Final [employer] Medical Image : [id number] [email or web address] See Link below for Image Normal [facility] CNOVon 11-10-2024 CNOV Office Visit (CATHMN ) GOGO WARE ([id number]) 1940 F Date Time Provider Department 11/10/24 9:45 AM DENG KOENIG CATHMN During your visit today, we recorded the following information about you: Pulse Respiration Blood pressure Weight 62/minute 16/minute 133/55 74.4 kg Deng Koenig, SKIP.MEDICAL RECORDS SPECIALIST 11/10/2024 10:24 AM Signed [facility] Department of Cardiovascular Medicine SECTION OF INTERVENTIONAL CARDIOLOGY OUTPATIENT VISIT DATE November 10, 2024 OUTPATIENT VISIT TYPE ESTABLISHED FOLLOW UP [facility]: Dr. Lindo Chief Complaint: Patient here for cardiac follow up evaluation History of Present Illness: Patient is a 84 year old female who presents for follow up visit today. Past medical history includes: CAD (cath in 2018 showing moderate RCA and LAD disease, RCA iFR 0.96 and LAD iFR was abnormal at 0.84 (patient opted not to proceed with PCI of mid LAD, hence being medically managed) Severe aortic stenosis 10/30/2024 s/p TAVR 23 S3 and Stenting of the R-NURSE RESEARCH with a 8.0 x 39 mm [place] VBX Balloon expandable stent, RLE Arterial Doppler and PVR completed, right NURSE RESEARCH stent patent HFpEF (EF 64%) HTN HLD Glaucoma (left eye completely blind) Patient underwent TAVR 23 S3 and Stenting of the R-NURSE RESEARCH with a 8.0 x 39 mm [place] VBX Balloon expandable stent on 10/30/[address] Wells. RLE Arterial Doppler and PVR completed, right NURSE RESEARCH stent patent. Patient presents today for hospital follow-up visit. Patient states she is doing very well following her procedure. She denies any chest pain, shortness of breath, or groin pain. Her only complaint is fatigue and decreased energy levels. She is interested in starting cardiac rehab, a referral has been placed. Her incision sites are healing appropriately without redness, swelling, or drainage noted. ECG completed and NSR with baseline 1st degree HB. Patient to follow-up next month with ECHO, Groin US and PVR's. Denies chest pain, shortness of breath, dyspnea on exertion, orthopnea, palpitations, lightheadedness, syncope, leg swelling, and wheezing PAST CARDIAC HISTORY: See HPI PAST MEDICAL HISTORY Diagnosis Date Aortic valve stenosis CAD (coronary artery disease) Disease PROBLEM SLEEPING Essential hypertension Glaucoma HTN (hypertension) Mixed hyperlipidemia PAST SURGICAL HISTORY Procedure Laterality Date PROCEDURE 1999, 2006 BOTH HIPS REPLACED PROCEDURE 10/28/2009 LASER OU FOR GLAUCOMA REMV CATARACT EXTRACAP,INSERT LENS Left 04/20/2024 Social History Tobacco Use Smoking status: Never Smokeless tobacco: Never Vaping Use Vaping status: Never Used Substance Use Topics Alcohol use: Never Drug use: Never FAMILY HISTORY Problem Relation Age of Onset Glaucoma Father Diabetes Father Coronary Artery Disease Sister Colon Cancer Maternal Grandmother Stroke Maternal Grandfather Blindness Other GREAT AUNT Colon Cancer Other ALLERGIES No Known Allergies MEDICATIONS: Current Outpatient Medications Medication Sig clopidogrel (PLAVIX) 75 mg tablet Take 1 tablet by mouth once daily. atorvastatin (LIPITOR) 40 mg tablet Take 1 tablet by mouth daily at bedtime. brimonidine (ALPHAGAN) 0.2 % ophthalmic solution Use 2 Drops in the left eye two times a day. latanoprost (XALATAN) 0.005 % ophthalmic solution Use 1 Drop in the left eye daily at bedtime. daiwuks-tlnakxzqg-ueptytxi,PF (GZH-XVJU-AER) 0.5-0.15-2 % ophthalmic solution Use 1 Drop in the left eye two times a day. valsartan (DIOVAN) 160 mg tablet Take 0.5 tablets by mouth once daily. carvedilol (COREG) 12.5 mg tablet Take 1 tablet by mouth twice daily with meals. aspirin, enteric coated (ASPIRIN, ENTERIC COATED) 81 mg EC tablet Take 81 mg by mouth once daily. temazepam (RESTORIL) 30 mg cap Take 30 mg by mouth at bedtime as needed. No current facility-administered medications for this visit. REVIEW OF SYSTEMS: PAIN ASSESSMENT: Denies complaints of acute or chronic pain GENERAL: Denies fevers, chills, night sweats, weight gain or loss HEENT: Denies changes in vision, hearing, nose bleeds, or bleeding gums NECK: Denies neck pain, stiffness, or swelling, or swollen lymph nodes RESPIRATORY: See HPI CARDIOVASCULAR: See HPI GI: Denies difficulty swallowing, nausea, vomiting, diarrhea, constipation, or melena : Denies frequency, urgency, or burning, and hematuria MUSCULOSKELETAL: Denies joint pain, swelling, or stiffness SKIN: Denies rashes, lesions, or tears PSYCH: Denies sleep disturbance, mood disorder, or recent psychosocial stressors HEMATOLOGY/LYMPHOLOGY: Denies prolonged bleeding or easy bruising ENDOCRINE: Denies heat or cold intolerance, polydipsia or polyphagia NEURO: Denies syncope, seizures, or numbness or tingling of hands or feet PHYSICAL EXAMINATION: BP 133/55 (more content not included)... Normal [facility] ECG COMPLETEon 11-10-2024 ECG COMPLETE Ventricular Rate : 6 3 BPM Atrial Rate : 63 BPM P-R Interval : 222 ms QRS Duration : 100 ms Q-T Interval : 412 ms QTC Calculation(Bazett) : 421 ms Calculated P [place] : 74 degrees Calculated R [place] : 25 degrees Calculated T [place] : 77 degrees SINUS RHYTHM WITH 1ST DEGREE AV BLOCK OTHERWISE NORMAL ECG Confirmed by MD DANIEL HEBA ([id number]) on 11/16/2024 5:11:31 PM NAME : GOGO WARE PID : [id number] : 1940 Gender : Female Race : ORD : [id number] Procedure Date : Nov 10 2024 09:00:28 Edit Date : Nov 16 2024 17:11:31 Diagnosis: SINUS RHYTHM WITH 1ST DEGREE AV BLOCK OTHERWISE NORMAL ECG Confirmed by MD DANIEL HEBA ([id number]) on 11/16/2024 5:11:31 PM Test Reason : Location : [address] [place] [address] J14 Overread By : MD DANIEL HEBA Edited By : MD DANIEL HEBA Referred By : , Acquired by : KACY INGRAM [facility] PT EDon 11-01-2024 PT ED HNO ID: [id number] Author: JULIANA GARZON RPh Service: Pharmacy Author Type: Pharmacist Type: Patient Education Filed: 11/01/2024 10:10 Note Text: Heart Failure Counseling with Video Instruction Education Note Patient Name:Nina Ware Service Date: 11/01/2024 Service Time: 10:09 AM Heart Failure Education Provided: Patient was provided video instruction of heart failure management, activity as tolerated, signs and symptoms of heart failure/worsening heart failure, and to contact their physician if exhibits these symptoms. Video instructed patient to contact his or her HF physician if his or her weight increases or decreases more than or equal to 4 lbs from dry weight. Medication Education Provided: 1. Reason for taking medications and treatment goals. 2. Benefits of medication therapy. 3. How medications work. 4. Necessary laboratory monitoring. 5. When to take medications and what to do if a dose is missed. 6. Drug interactions (Rx, OTC, herbal) and importance of notifying healthcare provider with any medication changes. 7. Potential duration of therapy. 8. Potential side effects of medications. 9. Use of control measures if applicable. 10. Importance of regularly filling prescriptions and taking medications. 11. Proper storage of medications. Heart Failure education via video instruction was documented by nursing staff. If additional medication education is warranted, please contact the pharmacy. Current Inpatient Medications: Current Facility-Administered Medications Medication Dose Route Frequency NaCl 0.9% iv flush bag 20 mL INTRAVENOUS PRN cephALEXin 500 mg cap(s) (KEFLEX) 500 mg ORAL q 12 H aspirin 81 mg chewable tab(s) 81 mg ORAL DAILY acetaminophen 650 mg tab(s) (TYLENOL) 650 mg ORAL q 6 H PRN Or acetaminophen 650 mg CUP (TYLENOL) 650 mg ORAL/FEEDING TUBE q 6 H PRN melatonin 3 mg tab(s) 3 mg ORAL AT BEDTIME PRN sodium chloride 0.9 % (flush) 2-10 mL (BD POSIFLUSH) 2-10 mL INTRAVENOUS DIRECTED PRN And perflutren lipid microspheres 1.1 mg/mL 1.3 mL injection (DEFINITY) 1.3 mL INTRAVENOUS DIRECTED PRN clopidogrel 75 mg tab(s) (PLAVIX) 75 mg ORAL DAILY temazepam 30 mg cap(s) (RESTORIL) 30 mg ORAL AT BEDTIME PRN carvedilol 12.5 mg tab(s) (COREG) 12.5 mg ORAL BID w MEALS valsartan 80 mg tab(s) (DIOVAN) 80 mg ORAL DAILY FURTHER RECOMMENDATIONS (IF ANY): SONYA Garzon [facility] PAGER: [phone] Normal [facility] PT ED HNO ID: [id number] Author: LEE ANN CROUCH DTR Service: Nutrition Therapy Author Type: Cultural Historian Type: Patient Education Filed: 11/01/2024 09:50 Note Text: NUTRITION THERAPY PATIENT EDUCATION SERVICE DATE: 11/01/2024 SERVICE TIME: 940 TOPIC: Heart Failure LEARNING ASSESSMENT Individuals Assessed: Patient Preferred Learning Method: No Preference Barriers to Learning: None Evident LEARNING RESPONSE Instruction Provided to: Patient Patient / Family Response: Verbalizes Understanding Method of Instruction: Written instruction/Handouts Verbal instruction Material(s) Provided to Patient: Education Materials Provided Nutrition Education CCHS: Your Sodium Controlled Diet Follow-Up Plan: Patient instructed to call with any further issues Referral (Recommendation): None MNT Billing: $ Routine Care : 1-15 minutes SIGNATURE: Lee Ann Crouch DTR PATIENT NAME: Gogo Ware DATE: November 01, 2024 TIME: 9:49 AM PAGER: Normal [facility] Basic metabolic 2000 panelon 10-31-2024 Anion gap [Moles/Vol] 12 mmol/L Normal 8-15 [facility] Comment on above: Order Comment: Speci men Type: BLOOD SPECIMEN Ordering Facility: [facility] Address: [address] [place] [address] Performed By: #### 2 4323-8, 03113-7 #### [facility] CLIA [id number] [address] [place] [address] [place] [address] [place] Calcium [Mass/Vol] 8.8 mg/dL Normal 8.5-10.2 [facility] Comment on above: Order Comment: Speci men Type: BLOOD SPECIMEN Ordering Facility: [facility] Address: [address] [place] [address] Performed By: #### 2 4323-8, 15651-1 #### [facility] CLIA [id number] [address] [place] [address] [place] Chloride [Moles/Vol] 106 mmol/L Normal 98-107 [facility] Comment on above: Order Comment: Speci men Type: BLOOD SPECIMEN Ordering Facility: [facility] Address: [address] [place] [address] Performed By: #### 2 4323-8, 24415-1 #### [facility] CLIA [id number] [address] [place] [address] [place] CO2 [Moles/Vol] 21 mmol/L Low 22-30 [facility] Comment on above: Order Comment: Speci men Type: BLOOD SPECIMEN Ordering Facility: [facility] Address: [address] [place] [address] Performed By: #### 2 4323-8, 14789-4 #### [facility] CLIA [id number] [address] [place] [address] [place] Creatinine [Mass/Vol] 0.71 mg/dL Normal 0.58-0.96 [facility] Comment on above: Order Comment: Speci men Type: BLOOD SPECIMEN Ordering Facility: [facility] Address: [address] [place] [address] Performed By: #### 2 4323-8, 70677-2 #### [facility] CLIA [id number] [address] [place] [address] [place] Creatinine and Glomerular filtration rate.predicted panel (S/P/Bld) 83 mL/min/1.73m??? Normal >=60 [facility] Comment on above: Order Comment: Speci men Type: BLOOD SPECIMEN Ordering Facility: [facility] Address: [address] [place] [address] Result Comment: Leanne mated Glomerular Filtration Rate (eGFR) is calculated using the 2020 CKD-EPI creatinine equation. This equation utilizes serum creatinine, sex, and age as parameters. The creatinine assay has traceable calibration to isotope dilution-mass spectrometry. Refer to KDIGO guidelines for clinical interpretation. In patients with unstable renal function, e.g. those with acute kidney injury, the eGFR may not accurately reflect actual GFR. Performed By: #### 2 4323-8, 19869-0 #### [facility] CLIA [id number] [address] [place] [address] [place] Glucose [Mass/Vol] 117 mg/dL High 74-99 [facility] Comment on above: Order Comment: Terri mittal Type: BLOOD SPECIMEN Ordering Facility: [facility] Address: [address] [place] [address] Result Comment: The [place] [employer] (ADA) provides guidance for cutoff values for fasting glucose and random glucose. The ADA defines fasting as no caloric intake for at least 8 hours. Fasting plasma glucose results between 100 to 125 mg/dL indicate increased risk for diabetes (prediabetes). Fasting plasma glucose results greater than or equal to 126 mg/dL meet the criteria for diagnosis of diabetes. In the absence of unequivocal hyperglycemia, results should be confirmed by repeat testing. In a patient with classic symptoms of hyperglycemia or hyperglycemic crisis, random plasma glucose results greater than or equal to 200 mg/dL meet the criteria for diagnosis of diabetes. Reference: Standards of Medical Care in Diabetes 2016, [place] [employer]. Diabetes Care. 2016.39(Suppl 1). Performed By: #### 2 4323-8, 80859-3 #### [facility] CLIA [id number] [address] [place] [address] [place] Potassium [Moles/Vol] 3.8 mmol/L Normal 3.7-5.1 [facility] Comment on above: Order Comment: Terri mittal Type: BLOOD SPECIMEN Ordering Facility: [facility] Address: [address] [place] [address] Performed By: #### 2 4323-8, 05651-7 #### [facility] CLIA [id number] [address] [place] [address] [place] Sodium [Moles/Vol] 139 mmol/L Normal 136-144 [facility] Comment on above: Order Comment: Speci men Type: BLOOD SPECIMEN Ordering Facility: [facility] Address: [address] [place] [address] Performed By: #### 2 4323-8, 23681-2 #### [facility] CLIA [id number] [address] [place] [address] [place] Urea nitrogen [Mass/Vol] 15 mg/dL Normal 7-21 [facility] Comment on above: Order Comment: Speci men Type: BLOOD SPECIMEN Ordering Facility: [facility] Address: [address] [place] [address] Performed By: #### 2 4323-8, 43834-0 #### [facility] CLIA [id number] [address] [place] [address] [place] CBC W Auto Differential pane l (Bld)on 10-31-2024 Basophils (Bld) [#/Vol] 0.03 10*3/uL Normal <0.11 [facility] Comment on above: Order Comment: Speci men Type: BLOOD SPECIMEN Ordering Facility: [facility] Address: [address] [place] [address] Performed By: #### 2 4323-8, 55992-3 #### [facility] CLIA [id number] [address] [place] [address] [place] Basophils/100 WBC (Bld) 0.5 % Normal [facility] Comment on above: Order Comment: Speci men Type: BLOOD SPECIMEN Ordering Facility: [facility] Address: [address] [place] [address] Performed By: #### 2 4323-8, 64967-8 #### [facility] CLIA [id number] [address] [place] [address] [place] Differential cell count method Nom (Bld) Auto Normal [facility] Comment on above: Order Comment: Speci men Type: BLOOD SPECIMEN Ordering Facility: [facility] Address: [address] [place] [address] Performed By: #### 2 4323-8, 57183-8 #### [facility] CLIA [id number] [address] [place] [address] [place] Eosinophils (Bld) [#/Vol] 0.08 10*3/uL Normal <0.46 [facility] Comment on above: Order Comment: Speci men Type: BLOOD SPECIMEN Ordering Facility: [facility] Address: [address] [place] [address] Performed By: #### 2 4323-8, 32025-0 #### [facility] CLIA [id number] [address] [place] [address] [place] Eosinophils/100 WBC (Bld) 1.2 % Normal [facility] Comment on above: Order Comment: Speci men Type: BLOOD SPECIMEN Ordering Facility: [facility] Address: [address] [place] [address] Performed By: #### 2 4323-8, 78925-9 #### [facility] CLIA [id number] [address] [place] [address] [place] Erythrocyte distribution width (RBC) [Ratio] 12.9 % Normal 11.5-15.0 [facility] Comment on above: Order Comment: Speci men Type: BLOOD SPECIMEN Ordering Facility: [facility] Address: [address] [place] [address] Performed By: #### 2 4323-8, 95330-2 #### [facility] CLIA [id number] [address] [place] [address] [place] Hematocrit (Bld) [Volume fraction] 30.5 % Low 36.0-46.0 [facility] Comment on above: Order Comment: Speci men Type: BLOOD SPECIMEN Ordering Facility: [facility] Address: [address] [place] [address] Performed By: #### 2 4323-8, 88390-5 #### [facility] CLIA [id number] [address] [place] [address] [place] Hemoglobin (Bld) [Mass/Vol] 10.3 g/dL Low 11.5-15.5 [facility] Comment on above: Order Comment: Speci men Type: BLOOD SPECIMEN Ordering Facility: [facility] Address: [address] [place] [address] Performed By: #### 2 4323-8, 92084-8 #### [facility] CLIA [id number] [address] [place] [address] [place] Immature granulocytes (Bld) [#/Vol] 10*3/uL Normal <0.10 [facility] Comment on above: Order Comment: Speci men Type: BLOOD SPECIMEN Ordering Facility: [facility] Address: [address] [place] [address] Performed By: #### 2 4323-8, 18216-2 #### [facility] CLIA [id number] [address] [place] [address] [place] Immature granulocytes/100 WBC (Bld) 0.2 % Normal [facility] Comment on above: Order Comment: Speci men Type: BLOOD SPECIMEN Ordering Facility: [facility] Address: [address] [place] [address] Performed By: #### 2 4323-8, 87862-6 #### [facility] CLIA [id number] [address] [place] [address] [place] Lymphocytes (Bld) [#/Vol] 1.01 10*3/uL Normal 1.00-4.00 [facility] Comment on above: Order Comment: Speci men Type: BLOOD SPECIMEN Ordering Facility: [facility] Address: [address] [place] [address] Performed By: #### 2 4323-8, 96928-5 #### [facility] CLIA [id number] [address] [place] [address] [place] Lymphocytes/100 WBC (Bld) 15.5 % Normal [facility] Comment on above: Order Comment: Speci men Type: BLOOD SPECIMEN Ordering Facility: [facility] Address: [address] [place] [address] Performed By: #### 2 4323-8, 40503-0 #### [facility] CLIA [id number] [address] [place] [address] [place] MCH (RBC) [Entitic mass] 31.1 pg Normal 26.0-34.0 [facility] Comment on above: Order Comment: Speci men Type: BLOOD SPECIMEN Ordering Facility: [facility] Address: [address] [place] [address] Performed By: #### 2 4323-8, 16437-2 #### [facility] CLIA [id number] [address] [place] [address] [place] MCHC (RBC) [Mass/Vol] 33.8 g/dL Normal 30.5-36.0 [facility] Comment on above: Order Comment: Speci men Type: BLOOD SPECIMEN Ordering Facility: [facility] Address: [address] [place] [address] Performed By: #### 2 4323-8, 42915-3 #### [facility] CLIA [id number] [address] [place] [address] [place] MCV (RBC) [Entitic vol] 92.1 fL Normal 80.0-100.0 [facility] Comment on above: Order Comment: Speci men Type: BLOOD SPECIMEN Ordering Facility: [facility] Address: [address] [place] [address] Performed By: #### 2 4323-8, 48090-7 #### [facility] CLIA [id number] [address] [place] [address] [place] Monocytes (Bld) [#/Vol] 0.70 10*3/uL Normal <0.87 [facility] Comment on above: Order Comment: Speci men Type: BLOOD SPECIMEN Ordering Facility: [facility] Address: [address] [place] [address] Performed By: #### 2 4323-8, 74792-3 #### [facility] CLIA [id number] [address] [place] [address] [place] Monocytes/100 WBC (Bld) 10.7 % Normal [facility] Comment on above: Order Comment: Speci men Type: BLOOD SPECIMEN Ordering Facility: [facility] Address: [address] [place] [address] Performed By: #### 2 4323-8, 79622-0 #### [facility] CLIA [id number] [address] [place] [address] [place] Neutrophils (Bld) [#/Vol] 4.70 10*3/uL Normal 1.45-7.50 [facility] Comment on above: Order Comment: Speci men Type: BLOOD SPECIMEN Ordering Facility: [facility] Address: [address] [place] [address] Performed By: #### 2 4323-8, 65129-0 #### [facility] CLIA [id number] [address] [place] [address] [place] Neutrophils/100 WBC (Bld) 71.9 % Normal [facility] Comment on above: Order Comment: Speci men Type: BLOOD SPECIMEN Ordering Facility: [facility] Address: [address] [place] [address] Performed By: #### 2 4323-8, 11881-2 #### [facility] CLIA [id number] [address] [place] [address] [place] Nucleated RBC (Bld) [#/Vol] 10*3/uL Normal <0.01 [facility] Comment on above: Order Comment: Speci men Type: BLOOD SPECIMEN Ordering Facility: [facility] Address: [address] [place] [address] Performed By: #### 2 4323-8, 12435-9 #### [facility] CLIA [id number] [address] [place] [address] [place] Nucleated RBC/100 WBC (Bld) [Ratio] 0.0 /100 WBC Normal [facility] Comment on above: Order Comment: Speci men Type: BLOOD SPECIMEN Ordering Facility: [facility] Address: [address] [place] [address] Performed By: #### 2 4323-8, 13661-8 #### [facility] CLIA [id number] [address] [place] [address] [place] Platelet mean volume (Bld) [Entitic vol] 10.8 fL Normal 9.0-12.7 [facility] Comment on above: Order Comment: Speci men Type: BLOOD SPECIMEN Ordering Facility: [facility] Address: [address] [place] [address] Performed By: #### 2 4323-8, 73226-7 #### [facility] CLIA [id number] [address] [place] [address] [place] Platelets (Bld) [#/Vol] 112 10*3/uL Low 150-400 [facility] Comment on above: Order Comment: Speci men Type: BLOOD SPECIMEN Ordering Facility: [facility] Address: [address] [place] [address] Result Comment: Resu lts checked and verified.No clot detected. Performed By: #### 2 4323-8, 16398-5 #### [facility] CLIA [id number] [address] [place] [address] [place] RBC (Bld) [#/Vol] 3.31 10*6/uL Low 3.90-5.20 [facility] Comment on above: Order Comment: Speci men Type: BLOOD SPECIMEN Ordering Facility: [facility] Address: [address] [place] [address] Performed By: #### 2 4323-8, 13980-4 #### [facility] CLIA [id number] [address] [place] [address] [place] WBC (Bld) [#/Vol] 6.53 10*3/uL Normal 3.70-11.00 [facility] Comment on above: Order Comment: Speci men Type: BLOOD SPECIMEN Ordering Facility: [facility] Address: [address] [place] [address] Performed By: #### 2 4323-8, 95333-0 #### [facility] CLIA [id number] [address] [place] [address] [place] [id number] 10-31-2024 ECG01 Ventricular Rate : 7 8 BPM Atrial Rate : 78 BPM P-R Interval : 202 ms QRS Duration : 98 ms Q-T Interval : 406 ms QTC Calculation(Bazett) : 462 ms Calculated P [place] : 65 degrees Calculated R [place] : 14 degrees Calculated T [place] : 139 degrees NORMAL SINUS RHYTHM LATERAL T WAVE ABNORMALITY ABNORMAL ECG Confirmed by AZUL NAILS MD ([id number]) on 11/10/2024 8:13:51 PM NAME : GOGO WARE PID : [id number] : 1940 Gender : Female Race : ORD : Procedure Date : Oct 31 2024 00:09:41 Edit Date : Nov 10 2024 20:13:52 Diagnosis: NORMAL SINUS RHYTHM LATERAL T WAVE ABNORMALITY ABNORMAL ECG Confirmed by AZUL NAILS MD ([id number]) on 11/10/2024 8:13:51 PM Test Reason : Location : 340 : [facility] 026 Overread By : AZUL NAILS MD Edited By : AZUL NAILS MD Referred By : , Acquired by : henry rn, Normal [facility] NT-proBNP [facility] 10-31 Natriuretic peptide.B prohormone N-Terminal [Mass/Vol] 1611 pg/mL High <450 [facility] Comment on above: Order Comment: Speci men Type: BLOOD SPECIMEN Ordering Facility: [facility] Address: [address] [place] [address] Performed By: #### 2 4323-8, 43933-0 #### [facility] CLIA [id number] [address] [place] [address] [place] [address] [place] NURSING PROGon 10-31-2024 NURSING PROG HNO ID: [id number] Author: AMRITA DURAN, LOULOU Service: Nursing Author Type: Registered Nurse Type: Nursing Progress Note Filed: 10/31/2024 10:37 Note Text: Transfer Note: PATIENT NAME: Gogo Ware Patient Location: [address]04[address]28-14 [facility] into [facility]unit [facility] in stable condition. Actions taken: Patient belongings with patient. VSS. Pt oriented to room and unit. [place] fall precautions in place and safety maintained. Normal [facility] ANES POSTPROC EVALon 025 ANES POSTPROC EVAL HNO ID: [id number] Author: KENJI NOGUERA DO Service: ? Author Type: Anesthesiologist Type: Anesthesia Postprocedure Evaluation Filed: 10/30/2024 13:42 Note Text: POST ANESTHESIA EVALUATION NOTE : 1940 Procedure Summary Date: 10/30/24 Room / Location: [place] [address] / [facility] CT AND VAS Anesthesia Start: 0700 Anesthesia Stop: 1007 Procedures: TRANSCATHETER AORTIC VALVE REPLACEMENT (TAVR/ESAU) W/ PROSTHETIC VALVE PERCUTANEOUS FEMORAL ARTERY APPROACH (Cardiac) TRANSCATHETER AORTIC VALVE REPLACEMENT (TAVR/ESAU) W/ PROSTHETIC VALVE PERCUTANEOUS FEMORAL ARTERY APPROACH Diagnosis: Aortic valve stenosis, etiology of cardiac valve disease unspecified (COMMERCIAL TF- TAVR S3 vs ROMEL) (Procedure on: 10/30/2024 at 5:30 am) Surgeons: Odilon Wells MD; Marco Smith MD, PhD Responsible Provider: Kenji Noguera DO Anesthesia Type: MAC ASA Status: 4 Anesthesia Type: MAC Last Vitals Vitals Value Taken Time BP 187/80 10/30/24 1334 Temp 36.2 ?C (97.2 ?F) 10/30/24 1130 Pulse 51 10/30/24 1340 Resp 20 10/30/24 1105 SpO2 97 % 10/30/24 1340 Vitals shown include unfiled device data. Post Anesthesia Patient Status Patient Evaluation: PACU. PACU/ICU Patient Condition: stable. Anticipated Disposition: inpatient floor planned admission. Neurological Status: aware and responsive. Pulmonary Status: breathing comfortably on supplemental oxygen Airway Control: returned to baseline unsupported. Cardiovascular Status: stable. Pain Management: clinically adequate Postoperative Hydration: acceptable. Intraoperative Events: no significant anesthesia events Post Operative Nausea/Vomiting Status: no significant post operative nausea or vomiting Recommendation: continue current plan of care. Anesthesia Observations No Documentation SIGNATURE: Kenji Noguera DO PATIENT NAME: Gogo Ware DATE: October 30, 2024 TIME: 1:42 PM CSN: [id number] Normal [facility] ANES PRE-OPon 10-30-2024 ANES PRE-OP HNO ID: [id number] Author: KENJI NOGUERA DO Service: ? Author Type: Anesthesiologist Type: Anesthesia Preprocedure Evaluation Filed: 10/30/2024 06:13 Note Text: ANESTHESIOLOGY DAY OF SURGERY NOTE : 1940 Procedure Information Date/Time: 10/30/24629 Procedure: TRANSCATHETER AORTIC VALVE REPLACEMENT (TAVR/ESAU) W/ PROSTHETIC VALVE PERCUTANEOUS FEMORAL ARTERY APPROACH Location: [place] [address] / [facility] CT AND VAS Surgeons: Odilon Wells MD Estimated body mass index is 27.67 kg/m? as calculated from the following: Height as of this encounter: 165.1 cm (5' 5"). Weight as of this encounter: 75.4 kg (166 lb 4.8 oz). Most recent hematocrit and potassium results: Hematocrit 37.4 10/29/2024 Potassium 4.3 10/29/2024 Relevant Problems CARDIO (+) Acute on chronic diastolic congestive heart failure (HCC) (+) 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 (HCC) (+) Essential (primary) hypertension (+) Nonrheumatic aortic valve stenosis I - PHYSICAL EVALUATION AIRWAY Patient intubated: No. Tracheostomy tube not present Mallampati: III. TM distance: >3 FB. Neck ROM: full ROM without neurological symptoms. Mouth opening: adequate. Short neck: no. Thick neck: no II - ANESTHESIA PLAN ASA Score: 4 Anesthetic Plan: MAC NPO Status: adequate Beta Madhu Monitoring Plan Monitoring plan: standard ASA and invasive hemodynamic monitoring. Monitoring method: arterial Line Post Procedure Analgesic Plan Postoperative analgesic plan: parenteral or oral opioids. Informed Consent Anesthetic risks, benefits, alternatives, personnel and consent discussed: yes. Patient / Responsible Alliance Party agrees to proceed: yes Patient / Surrogate agrees to blood products: Yes Vitals Value Taken Time BP 151/70 10/30/24531 Pulse 62 10/30/24531 Resp 17 10/30/24531 Temp 36 ?C (96.8 ?F) 10/30/24531 SpO2 97 % 10/30/24531 Facility-Administered Medications as of 10/30/2024 Medication Dose Route Frequency [COMPLETED] Chlorhexidine Gluconate 0.12 % 15 mL (PERIDEX) 15 mL ORAL ONCE Outpatient Medications as of 10/30/2024 Medication Sig valsartan (DIOVAN) 160 mg tablet Take 0.5 tablets by mouth once daily. carvedilol (COREG) 12.5 mg tablet Take 1 tablet by mouth twice daily with meals. aspirin, enteric coated (ASPIRIN, ENTERIC COATED) 81 mg EC tablet Take 81 mg by mouth once daily. temazepam (RESTORIL) 30 mg cap Take 30 mg by mouth at bedtime as needed. I have interviewed and examined the patient. I have reviewed the medical record and/or the pre-anesthesia evaluation, pertinent labs, and test results. This contains updated information obtained within 48 hours of Surgery/Procedure. SIGNATURE: Kenji Noguera DO PATIENT NAME: Gogo Ware DATE: October 30, 2024 TIME: 6:13 AM CSN: [id number] Normal [facility] ARTERIAL BLOOD GASESon 10-30 Base deficit (BldA) [Moles/Vol] -1 mmol/L Normal -2-0 [facility] Comment on above: Order Comment: Speci men Type: ARTERIAL BLOOD SPECIMEN Ordering Facility: [facility] Address: [address] [place] [address] Performed By: #### A LLBG #### [facility] CLIA [id number] [address] [place] [address] [place] Calcium.ionized (Bld) [Mass/Vol] 1.27 mmol/L Normal 1.08-1.30 [facility] Comment on above: Order Comment: Speci men Type: ARTERIAL BLOOD SPECIMEN Ordering Facility: [facility] Address: [address] [place] [address] Performed By: #### A LLBG #### [facility] CLIA [id number] [address] [place] [address] [place] Calcium.ionized adjusted to pH 7.4 (BldA) [Moles/Vol] 1.26 mmol/L Normal 1.08-1.30 [facility] Comment on above: Order Comment: Speci men Type: ARTERIAL BLOOD SPECIMEN Ordering Facility: [facility] Address: [address] [place] [address] Performed By: #### A LLBG #### [facility] IA [id number] [address] [place] [address] [place] Carboxyhemoglobin (BldA) [Mass fraction] 1.0 % Normal 0.0-2.0 [facility] Comment on above: Order Comment: Speci men Type: ARTERIAL BLOOD SPECIMEN Ordering Facility: [facility] Address: [address] [place] [address] Result Comment: Carb oxyhemoglobin Reference Range for Smokers: 2.0-8.0% Performed By: #### A LLBG #### [facility] CLIA [id number] [address] [place] [address] [place] CO2 (Bld) [Partial pressure] 41 mm Hg Normal 36-46 [facility] Comment on above: Order Comment: Speci men Type: ARTERIAL BLOOD SPECIMEN Ordering Facility: [facility] Address: [address] [place] [address] Performed By: #### A LLBG #### [facility] CLIA [id number] [address] [place] [address] [place] CO2 adjusted to patient's actual temperature (Bld) [Partial pressure] 41 mmHg Normal 36-46 [facility] Comment on above: Order Comment: Speci men Type: ARTERIAL BLOOD SPECIMEN Ordering Facility: [facility] Address: [address] [place] [address] Performed By: #### A LLBG #### [facility] CLIA [id number] [address] [place] [address] [place] Glucose [Mass/Vol] 119 mg/dL High 60-105 [facility] Comment on above: Order Comment: Speci men Type: ARTERIAL BLOOD SPECIMEN Ordering Facility: [facility] Address: [address] [place] [address] Performed By: #### A LLBG #### [facility] CLIA [id number] [address] [place] [address] [place] HCO3 (Bld) [Moles/Vol] 24 mmol/L Normal 22-26 [facility] Comment on above: Order Comment: Speci men Type: ARTERIAL BLOOD SPECIMEN Ordering Facility: [facility] Address: [address] [place] [address] Performed By: #### A LLBG #### [facility] CLIA [id number] [address] [place] [address] [place] Hematocrit (Bld) [Volume fraction] 31.0 % Low 36.0-46.0 [facility] Comment on above: Order Comment: Speci men Type: ARTERIAL BLOOD SPECIMEN Ordering Facility: [facility] Address: [address] [place] [address] Performed By: #### A LLBG #### [facility] CLIA [id number] [address] [place] [address] [place] Hemoglobin (Bld) [Mass/Vol] 10.0 g/dL Low 11.5-15.5 [facility] Comment on above: Order Comment: Speci men Type: ARTERIAL BLOOD SPECIMEN Ordering Facility: [facility] Address: [address] [id number] Performed By: #### A LLBG #### [facility] CLIA [id number] [address] [place] [address] [place] Lactate [Moles/Vol] 0.6 mmol/L Normal 0.5-2.2 [facility] Comment on above: Order Comment: Speci men Type: ARTERIAL BLOOD SPECIMEN Ordering Facility: [facility] Address: [address] [place] [address] Performed By: #### A LLBG #### [facility] CLIA [id number] [address] [place] [address] [place] Methemoglobin (Bld) [Mass fraction] 0.9 % Normal 0.0-1.5 [facility] Comment on above: Order Comment: Speci men Type: ARTERIAL BLOOD SPECIMEN Ordering Facility: [facility] Address: [address] [place] [address] Performed By: #### A LLBG #### [facility] CLIA [id number] [address] [place] [address] [place] Oxygen (Bld) [Partial pressure] 200 mm Hg High 85-95 [facility] Comment on above: Order Comment: Speci men Type: ARTERIAL BLOOD SPECIMEN Ordering Facility: [facility] Address: [address] [place] [address] Performed By: #### A LLBG #### [facility] CLIA [id number] [address] [place] [address] [place] Oxygen adjusted to patient's actual temperature (Bld) [Partial pressure] 200 mmHg High 85-95 [facility] Comment on above: Order Comment: Speci men Type: ARTERIAL BLOOD SPECIMEN Ordering Facility: [facility] Address: [address] [place] [address] Performed By: #### A LLBG #### [facility] CLIA [id number] [address] [place] [address] [place] Oxyhemoglobin (BldA) [Mass fraction] 98 % Normal 95-98 [facility] Comment on above: Order Comment: Speci men Type: ARTERIAL BLOOD SPECIMEN Ordering Facility: [facility] Address: [address] [place] [address] Performed By: #### A LLBG #### [facility] CLIA [id number] [address] [place] [address] [place] pH (Bld) 7.38 [pH] Normal 7.35-7.45 [facility] Comment on above: Order Comment: Speci men Type: ARTERIAL BLOOD SPECIMEN Ordering Facility: [facility] Address: [address] [place] [address] Performed By: #### A LLBG #### [facility] CLIA [id number] [address] [place] [address] [place] pH adjusted to patient's actual temperature (Bld) 7.38 Normal 7.35-7.45 [facility] Comment on above: Order Comment: Speci men Type: ARTERIAL BLOOD SPECIMEN Ordering Facility: [facility] Address: [address] [place] [address] Performed By: #### A LLBG #### [facility] CLIA [id number] [address] [place] [address] [place] Potassium [Moles/Vol] 3.7 mmol/L Normal 3.5-5.0 [facility] Comment on above: Order Comment: Speci men Type: ARTERIAL BLOOD SPECIMEN Ordering Facility: [facility] Address: [address] [place] [address] Performed By: #### A LLBG #### [facility] CLIA [id number] [address] [place] [address] [place] Sodium [Moles/Vol] 139 mmol/L Normal 136-144 [facility] Comment on above: Order Comment: Speci men Type: ARTERIAL BLOOD SPECIMEN Ordering Facility: [facility] Address: [address] [place] [address] Performed By: #### A LLBG #### [facility] CLIA [id number] [address] [place] [address] [place] CNDSon 10-30-2024 CNDS HNO ID: [id number] Author: ODILON WELLS MD Service: Cardiovascular Medicine Author Type: Physician Type: Discharge Summary Filed: 11/04/2024 07:44 Note Text: My Hospital Stay and Discharge Summary This is a summary of your hospital stay. Please read it carefully and share it with your family and healthcare providers. Date of Admission: 10/30/2024 Date of Discharge: 11/01/2024 Where I Will be Going after Discharge: Home with Self Care My Condition at Discharge: Stable My Doctors and Medical Team: My Main Hospital Doctor: Odilon Wells MD Other Medical Team Members: None HISTORY Gogo Ware is an 84 year old female with pmhx of: CAD (cath in 2018 showing moderate RCA and LAD disease, RCA iFR 0.96 and LAD iFR was abnormal at 0.84 (patient opted not to proceed with PCI of mid LAD, hence being medically managed) Severe aortic stenosis HFpEF (EF 64%) HTN HLD Glaucoma (left eye completely blind) ASSESSMENT/REASON FOR ADMISSION: Patient presents for planned TAVR on 10/30/[address] Wells. Presents with acute on chronic diastolic heart failure with symptoms of elevated BNP and decreased energy/fatigue. HOSPITAL COURSE: Patient underwent successful Transcatheter Aortic Valve Replacement with a 23mm Newell Jerry S3 and Stenting of the R-NURSE RESEARCH with a 8.0 x 39 mm [place] VBX Balloon expandable stent, RLE Arterial Doppler and PVR completed, right NURSE RESEARCH stent patent, patient monitored overnight. Echo post procedure: Newell S3 Ultra prosthetic valve size #23. There is no aortic valve regurgitation. S/P transcatheter aortic valve replacement. The peak gradient is 19 mmHg (peak velocity = 217.0 cm/s). The mean gradient is 11 mmHg. The LVOT mean velocity is 75.4 cm/s. The LVOT diameter is 2.3 cm. The aortic VTI is 53.3 cm. The mean velocity in the aortic valve is 155.0 cm/s. The dimensionless valve index is 0.52. AV area is 2.15 cm? (1.16 cm?/m?) by continuity, VTI. The LVOT stroke volume index is 63 ml/m?. Pre procedure EKG: NSR w/ 1st degree HB: TYREL 212 QRS 92 Post procedure EKG: SB w/ 1st degree HB TYREL 230 QRS 96 Discharge EKG - unchanged. IMPRESSION/PLAN: - will need DAPT for at least 6 months - will need Arterial Doppler and PVR at 1 mo, 3 mo,6 mo and 12 months after procedure. [id number] mg daily DAPT plavix 75 mg daily starting 10/31/2024 AC N/A Post procedural antibiotic for 3-7 days and the SBE prophylaxis. Beta Madhu: coreg 12.5 mg twice daily ACEI/ARB/ARNI valsartan 80 mg daily SGLT2 inhibitor N/A Diuretic: N/A Aldosterone antagonist: N/A Statin lipitor 40 mg daily Additional Medications: Eye drops Restoril 30 mg as needed before bed Tele/EKG (Images/strips reviewed) Sr w/ 1st degree HB Device therapy: N/A Patient remained stable for discharge home with follow up. Other Problem(s)/Diagnosis Active Hospital Problems Diagnosis Severe aortic 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) Acute on chronic diastolic congestive heart failure (HCC) 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 (HCC) Nonrheumatic aortic valve stenosis Mixed hyperlipidemia Essential (primary) hypertension Procedures Performed While in the Hospital: Patient underwent successful Transcatheter Aortic Valve Replacement with a 23mm Newell Jerry S3 and Stenting of the R-NURSE RESEARCH with a 8.0 x 39 mm [place] VBX Balloon expandable stent Important Tests/Procedures: ECHO: CONCLUSIONS: - Technically difficult exam due to post op and suboptimal positioning. - Exam indication: S/p TAVR - The left ventricle is normal in size. Left ventricular systolic function is normal. EF = 61 ? 5% (2D 4-ch.) Left ventricular diastolic function was not evaluated due to Limited Echo. - The right ventricle is normal in size. Right ventricular systolic function is normal. - S/P transcatheter aortic valve replacement. Newell S3 Ultra prosthetic aortic valve (size #23). There is no aortic valve regurgitation. The peak gradient is 19 mmHg, the mean gradient is 11 mmHg and the dimensionless valve index is 0.52. - Estimated right ventricular systolic pressure is not reported due to an insufficient tricuspid regurgitation signal. Estimated right atrial pressure is 3 mmHg based on IVC assessment. - Exam was compared with the prior CC echocardiographic exam performed on 10/30/24. Similar findings. Instructions for My Care at Home or Healthcare Facility These instructions explain what you or your resident care coordinator need to do to continue your care at home or at another healthcare facility Please go over these instructions with your nurse and resident care coordinator. If you are not sure about something, please ask. Additional Health Information I Need to Know After I Leave the Hospital: Please check your blood pressure at home and record the (more content not included)... Normal [facility] ECG COMPLETEon 10-30-2024 ECG COMPLETE Ventricular Rate : 5 7 BPM Atrial Rate : 57 BPM P-R Interval : 230 ms QRS Duration : 96 ms Q-T Interval : 470 ms QTC Calculation(Bazett) : 457 ms Calculated P [place] : 76 degrees Calculated R [place] : 21 degrees Calculated T [place] : 80 degrees SINUS BRADYCARDIA WITH 1ST DEGREE AV BLOCK NONSPECIFIC T WAVE ABNORMALITY ABNORMAL ECG Confirmed by AZUL NAILS MD ([id number]) on 11/10/2024 8:13:50 PM NAME : GOGO WARE PID : [id number] : 1940 Gender : Female Race : ORD : [id number] Procedure Date : Oct 30 2024 10:00:18 Edit Date : Nov 10 2024 20:13:52 Diagnosis: SINUS BRADYCARDIA WITH 1ST DEGREE AV BLOCK NONSPECIFIC T WAVE ABNORMALITY ABNORMAL ECG Confirmed by AZUL NAILS MD ([id number]) on 11/10/2024 8:13:50 PM Test Reason : Post-OP Location : 340 : [id number] Overread By : AZUL NAILS MD Edited By : AZUL NAILS MD Referred By : , Acquired by : [id number], Normal [facility] ECHOon 10-30-2024 Echocardiography Echocardiography Rep ort: Transthoracic Echo [facility] Bedside Date of service: 10/30/2024 10:18:57 AM PROFESSOR OF ARCHAEOLOGY Ordering physician: ODILON WELLS Indication: S/p TAVR Technologist: Lesa Mar and Lalitha Euceda Interpreting physician: Charla Peace MD PATIENT: Name: MRS. GOGO WARE : 1940 Age: 84 years Gender: F History of hypertension, dyslipidemia, coronary artery disease and valvular heart disease. Previous cardiovascular interventions: TAVR (10/2024) Primary rhythm: sinus. Height: 165.10 cm BSA: 1.86 m Weight: 75.30 kg BMI: 27.6 kg/m Heart rate 56 bpm Blood pressure 178/77 mmHg Technically difficult exam due to post op and suboptimal positioning. Spectral Doppler was utilized to determine the flow velocities and pressure gradients reported in this exam. MEASUREMENTS: Value Indexed Normal LV stroke volume 64 ml (2D 4-ch.) LVOT stroke volume 115 ml 63 ml/m LV end diastolic volume 105 ml (2D 4-ch.) 56.3 ml/m 29<=EDVi<62 LV end systolic volume 41 ml (2D 4-ch.) 22.1 ml/m Ejection Fraction 61 % (2D 4-ch.) EF > 54 FINDINGS: LEFT VENTRICLE The left ventricle is normal in size. Left ventricular systolic function is normal. Left ventricular diastolic function was not evaluated due to Limited Echo. RIGHT VENTRICLE The right ventricle is normal in size. Right ventricular systolic function is normal. Estimated right ventricular systolic pressure is not reported due to an insufficient tricuspid regurgitation signal. Estimated right atrial pressure is 3 mmHg based on IVC assessment. RIGHT ATRIUM Inferior Vena Cava: The inferior vena cava appears normal measuring 1.7 cm. The vessel decreases greater than 50 percent with inspiration. MITRAL VALVE There is mild mitral annular calcification observed posterior. There is trace (trace - 1+) mitral valve regurgitation. There is mild thickening. TRICUSPID VALVE There is trace (trace - 1+) tricuspid valve regurgitation. There is no thickening. AORTIC VALVE Newell S3 Ultra prosthetic valve size #23. There is no aortic valve regurgitation. S/P transcatheter aortic valve replacement. The peak gradient is 19 mmHg (peak velocity = 217.0 cm/s). The mean gradient is 11 mmHg. The LVOT mean velocity is 75.4 cm/s. The LVOT diameter is 2.3 cm. The aortic VTI is 53.3 cm. The mean velocity in the aortic valve is 155.0 cm/s. The dimensionless valve index is 0.52. AV area is 2.15 cm (1.16 cm /m ) by continuity, VTI. The LVOT stroke volume index is 63 ml/m . PERICARDIUM There is no pericardial effusion. There is an epicardial fat pad. CONCLUSIONS: - Technically difficult exam due to post op and suboptimal positioning. - Exam indication: S/p TAVR - The left ventricle is normal in size. Left ventricular systolic function is normal. EF = 61 5% (2D 4-ch.) Left ventricular diastolic function was not evaluated due to Limited Echo. - The right ventricle is normal in size. Right ventricular systolic function is normal. - S/P transcatheter aortic valve replacement. Newell S3 Ultra prosthetic aortic valve (size #23). There is no aortic valve regurgitation. The peak gradient is 19 mmHg, the mean gradient is 11 mmHg and the dimensionless valve index is 0.52. - Estimated right ventricular systolic pressure is not reported due to an insufficient tricuspid regurgitation signal. Estimated right atrial pressure is 3 mmHg based on IVC assessment. - Exam was compared with the prior CC echocardiographic exam performed on 10/30/24. Similar findings. * * * Final * * * [facility] [employer] [facility] : [id number] goDynamicsSISUID Normal [facility] INTRAOPERATIVE ECHO Donovan 0 10-30-2024 INTRAOPERATIVE ECHO POST Echocardiography Report: Intraoperative Echo Post (TTE) [facility] OR - J4 Date of service: 10/30/2024 7:08:13 AM PROFESSOR OF ARCHAEOLOGY Ordering physician: KACY JIMENEZ Indication: TAVR Technologist: Lesa Euceda Interpreting physician: Charla Peace MD PATIENT: Name: MRS. GOGO WARE : 1940 Age: 84 years Gender: F History of hypertension, dyslipidemia, coronary artery disease and valvular heart disease. Previous cardiovascular interventions: TAVR (10/2024) Height: 165.10 cm BSA: 1.84 m Weight: 73.94 kg BMI: 27.1 kg/m Color Doppler was utilized to interrogate the cardiac valves assessed and spectral Doppler was utilized to determine the flow velocities and pressure gradients reported in this exam. MEASUREMENTS: Value Indexed LVOT stroke volume 111 ml 61 ml/m FINDINGS: TRICUSPID VALVE AORTIC VALVE Newell S3 Ultra prosthetic valve size #23. There is no aortic valve regurgitation. S/P transcatheter aortic valve replacement. The peak gradient is 11 mmHg (peak velocity = 168.0 cm/s). The mean gradient is 6 mmHg. The LVOT mean velocity is 71.5 cm/s. The LVOT diameter is 2.3 cm. The aortic VTI is 40.6 cm. The mean velocity in the aortic valve is 113.0 cm/s. The dimensionless valve index is 0.66. AV area is 2.73 cm (1.48 cm /m ) by continuity, VTI. The LVOT stroke volume index is 61 ml/m . PERICARDIUM There is no pericardial effusion. There is an epicardial fat pad. CONCLUSIONS: - Exam indication: TAVR - S/P transcatheter aortic valve replacement. Newell S3 Ultra prosthetic aortic valve (size #23). There is no aortic valve regurgitation. The peak gradient is 11 mmHg, the mean gradient is 6 mmHg and the dimensionless valve index is 0.66. TAVR procedure - Extremely limited echo to evaluate for paravalvular AI, pericardial effusion, and acute aortic pathology. -Successful implantation of 23mm Newell S3 Ultra TAVR valve via TF approach. - Post dilated 1x -The valve appears well seated without AI by color Doppler. -There is no pericardial effusion. - Exam was compared with the prior CC echocardiographic exam performed on 08/31/2024. s/p TAVR. Final [facility] : [id number] goDynamicsSISUID See Link below for Image Normal [facility] OPERATIVE NOon 10-30-2024 OPERATIVE NO HNO ID: [id number] Author: MARCO SMITH MD, PhD Service: Cardiac Surgery Author Type: Physician Type: Operative Report Filed: 11/03/2024 09:25 Note Text: [facility]ARDIO-[facility]ORACICSURGERY OPERATIVE/PROCEDURE REPORT LOG ID: [id number] SURGERY/PROCEDURE DATE: 10/30/2024 INCISION/PROCEDURE START TIME: 7:40 AM INCISION CLOSE/PROCEDURE END TIME: 9:45 AM SURGEON(S)/PROCEDURALIST(S) AND WIRE INSPECTOR(S): Surgeons and Role: Panel 1: * Odilon Wells MD - Primary * Carlos Love MD - Resident - Assisting Panel 2: * Marco Smith MD, PhD - Primary No Additional Staff ANESTHESIA: Monitored Anesthesia Care CTS OP REPORTS Procedure(s): Transcatheter Aortic Valve Replacement (TAVR) Preop Diagnosis: Severe Aortic Stenosis CAD (mild), glaucoma, H/O total hip replacement Post-Operative Diagnosis: Same as preop Description Of Procedure: Patient Status: Elective Operative Approach: Endovascular approach Endovascular Approach: Percutaneous with ultrasound guidance for needle placement Percutaneous Site: R NURSE RESEARCH Transcatheter Aortic Valve Replacement (TAVR): [place] Device Used: Yes Temporary Transvenous Pacing Wire Placed: Yes [place] Procedure Performed: No Patient has Tricuspid aortic valve Valve in Valve: No Valve Type Used: Newell Jerry 3 Edward Jerry 3 Size: Ultra 23mm deployed at nominal -2.0 mL fill volume. Balloon Aortic Valvuloplasty Performed Prior to TAVR Deployment: No Balloon Aortic Valvuloplasty Performed Post TAVR Deployment: Yes Post Dilation BAV Performed for: Valve under expansion Final Aortic Regurgitation by Echocardiogram/Angiography: Trivial The large sheath site was controlled with 3 Perclose devices Angio-Seals. Sheath Angiogram Demonstrated: Contrast extravasation-percloses did not hold due to calcified vessel Abnormal Sheath Angiogram was Treated with: Covered stent placement TAVR Procedure/Findings: 8x39mm [place] VBX balloon expandable stent deployed in the R NURSE RESEARCH-percloses were not effective due to calcified vessel Post Procedure Details: Patient Tolerance of Procedure: tolerated well, no immediate complications Sponge/Instrument/Needle Counts: Final Counts Correct Specimens: None Surgeon/Concrete Fence Builder Participation: The primary Surgeon/Proceduralist performed the procedure with assistance. SPECIMENS: COMPLETED BY: Marco Smith MD, PhD PATIENT NAME: Gogo Ware DATE: November 03, 2024 TIME: 9:20 AM AGE: [age] year old Normal [facility] PVR ANK/CEE/TOE [facility] on 10-30-2024 PVR ANK/CEE/TOE [facility] Non-Invasive Vascular Laboratory [facility] [place] Portable Lower Extremity Arterial Physiology Study Bilateral/Complete Date of service/time: 10/30/2024 10:39:30 AM Name: MRS. GOGO WARE Date of : 1940 Age: 84 years Gender: F Clinical Indication Follow up. Post operative repair surveillance 10/30/2024 right common femoral artery stenting. TECHNIQUE -------- An arterial physiological examination was performed, including measurement of blood pressures using continuous wave Doppler and recording of plethysmographic with or without Doppler waveforms at the below-mentioned limb segments. FINDINGS -------- RIGHT SIDE AT REST Right Pressures Brachial: Can not obtain per nurse due to recent right upper extremity access. Ankle dorsalis pedis: 201 mmHg VARSHA: 1.16 Ankle posterior tibial: 192 mmHg VARSHA: 1.10 Right PVR Waveforms Ankle: Normal. Transmetatarsal: Normal. Digit: Normal. LEFT SIDE AT REST Left Pressures Brachial: 174 mmHg Ankle dorsalis pedis: 185 mmHg VARSHA: 1.06 Ankle posterior tibial: 197 mmHg VARSHA: 1.13 Left PVR Waveforms Ankle: Normal. Transmetatarsal: Normal. Digit: Normal. IMPRESSION Bilateral ankle tracings likely dampened due to ankle edema. RIGHT SIDE Resting right ankle brachial index: 1.16 Normal ankle brachial index at rest in the right leg. Right ankle: Normal at rest. LEFT SIDE Resting left ankle brachial index: 1.13 Normal ankle brachial index at rest in the left leg. Left ankle: Normal at rest. Technologist: Renee Bar RVT Ordering physician: ODILON WELLS Interpreting physician: Medina Patel MD, SHERIDAN Final [facility] : [id number] D See Link below for Image Normal [facility] TAVR PROCEDURE REPORTon TAVR PROCEDURE REPORT Name: MRS. GOGO WARE Age: 84 years : 1940 Procedure Date: 10/30/2024 Procedure Start Time: 10/30/2024 7:00:22 AM Procedure Stop Time: 10/30/2024 9:53:24 AM Site ID: [facility] Lab #: [id number] + +------- + Physician Case Duties + +------- + Odilon Wells M.D. Interventional Attending Physician + +------- + Carlos Love M.D. Interventional Fellow + +------- + Marco Smith M.D. CT Surgeon + +------- + INDICATIONS FOR PROCEDURE: High Risk (>=10% Risk of 30 Day Mortality) This 84Y old woman with severe aortic valve stenosis presented with acute on chronic diastolic heart failure as defined by worsening lower extremity swelling, worsening exertional dyspnea and rising BNP. We therefore decided to pursue TAVR as a treatment strategy. PROCEDURES: Transcatheter Aortic Valve Replacement Valve Type: 23mm Newell Jerry S3 deployed at nominal volume -2cc and post dilated at nominal -2cc added fill volume. Peripheral Vascular Interventions Stenting of the R-NURSE RESEARCH with a 8.0 x 39 mm [place] VBX Balloon expandable stent [Deployed at 8 ATMs] and post dilated (proximal segment of the stent) with a 8.0 x 40 mm Nip Wrapper balloon. PROCEDURAL DETAILS: Pre-Valve Deployment: The patient was counseled extensively regarding the risks, benefits, and alternatives to the procedure and after answering all questions, the patient yielded informed consent. The patient was thereafter brought to the operative suite and monitored anesthesia care was performed. Preprocedural antibiotic was administered intravenously. Sterile technique was used throughout the case. All vascular access was obtained using micropuncture technique using fluoroscopic and ultrasound guidance. After pre-closure, an 8F sheath was placed in the right femoral artery and a 5F sheath inferior to the original one and a 6F sheath was placed in the right femoral vein. Next, a temporary pacing wire was placed in the right ventricle via the venous sheath using fluroscopic guidance. The passive fixation lead was placed in the right ventricle with appropriate capture threshold of 1.00 mA. A 5F Straight Flush catheter was placed in the RFA sheath and positioned in the non coronary cusp. Right radial artery access was obtained in the usual fashion and a 5/6F slender sheath was placed in the right radial artery. Over a Whisper J wire, a [place] embolic protection device was deployed in the usual fashion with baskets positioned in the innominate and left carotid arteries. During Valve Deployment: The 8F sheath in the right femoral artery was upsized directly to a 14-Fr Esheath delivery sheath over a Lunderquist wire. After securing the delivery sheath, a 5F AL1 was advanced to the aortic root. Using a 0.035" straight wire, the aortic valve was crossed. Over the wire, the AL1 catheter was advanced across the valve. The straight wire was removed and exchanged for a preformed Amplatz Extrastiff J wire. Next, the Newell Jerry S3 delivery system with a mounted valve was delivered to the ascending aorta. After confirming appropriate placement across the aortic valve using aortic root angiogaphy, the 23mm Newell Jerry S3 valve was deployed with rapid ventricular pacing at 180 bpm with nominal volume -2cc fill volume. Post Valve Deployment: Following valve deployment, the transthoracic echocardiogram and aortic root angiogram revealed a well placed and well seated valve with no evidence of significant aortic regurgitation. We then postdilated the valve with rapid ventricular pacing in the usual manner with nominal -2cc added fill volume in the delivery balloon. Following valve post dilation, transthoracic echocardiogram and aortic root angiogram revealed improvement in the aortic regurgitation to no aortic regurgitation and a well placed and well seated valve. Next, the delivery catheter system was removed. Due vessel architecture and calcification we were not able to achieve hemostasis despite utilization of 2 aditional Perclose devices (3 Percloses were used in total). The bleeding around the 8F sheath was too much to place an Angioseal. We thus upsized the 5F inferior sheath to a 6F sheath, and proceeded with BAGGING SALVAGER of the external iliac artery with a 8.0 x 40 mm Nip Wrapper balloon and compressed the arteriotomy for approx 3 minutes. This reduced bleeding but on follow up angiography we still noticed singificant amount of extravasazation. We then performed BAGGING SALVAGER of the R-NURSE RESEARCH with the same special machine operator balloon involving the arteriotomy site and performed dry hemostasis for approx 3 minutes. This again reduced level of bleeding but not to an adequate level. We thus decided to upsize the inferior 6 Fr sheath to 7Fr sheath for covered stent placement. Care was taken to (more content not included)... [facility] LEG ARTERIAL PERIPH UNL V LABon 10-30-2024 US LEG ARTERIAL PERIPH UNL VAS LAB Non-Invasive Vascular Laboratory [facility] Portable Lower Extremity Arterial Duplex Limited Date of service/time: 10/30/2024 10:46:14 AM Name: MRS. GOGO WARE Date of : 1940 Age: 84 years Gender: F Clinical Indication Follow up: right common femoral artery stenting 10/30/2024. TECHNIQUE -------- An arterial duplex ultrasound examination was performed, including grayscale imaging and color Doppler and spectral Doppler examination of the below mentioned arteries. FINDINGS -------- RIGHT ARTERIES External iliac distal: PSV: 161 cm/s. EDV: 0 cm/s. Multiphasic waveform. Common femoral distal: PSV: 116 cm/s. EDV: 0 cm/s. Multiphasic waveform. Profunda femoral proximal: PSV: 95 cm/s. EDV: 0 cm/s. Multiphasic waveform. Superficial femoral origin: PSV: 136 cm/s. EDV: 0 cm/s. Multiphasic waveform. Superficial femoral proximal: PSV: 143 cm/s. EDV: 0 cm/s. Multiphasic waveform. IMPRESSION Carlos Love MD was notified with results at 11:20 AM. RIGHT SIDE External iliac artery distal: plaque noted without evidence of hemodynamically significant stenosis . Common femoral artery distal-distal to stent: patent . Unable to assess flow within the common femoral artery stent due to calcified and shadowing plaque, a multiphasic signal is noted proximal and distal to stent. Profunda femoral artery proximal: patent . Superficial femoral artery proximal: plaque noted without evidence of hemodynamically significant stenosis . Technologist: Dilcia Pratt RVT Ordering physician: ODILON WELLS Interpreting physician: Medina Patel MD, RPVI Final [facility] : [id number] goDynamicsSISUID See Link below for Image Normal [facility] CBC W Auto Differential pane l (Bld)on 10-29-2024 Basophils (Bld) [#/Vol] 10*3/uL Normal <0.11 [facility] Comment on above: Order Comment: Speci men Type: BLOOD SPECIMEN Ordering Facility: [facility] Address: [address] [place] [address] Performed By: #### 5 7021-8 #### [facility] CLIA [id number] [address] [place] [address] [place] Basophils/100 WBC (Bld) 0.4 % Normal [facility] Comment on above: Order Comment: Speci men Type: BLOOD SPECIMEN Ordering Facility: [facility] Address: [address] [place] [address] Performed By: #### 5 7021-8 #### [facility] CLIA [id number] [address] [place] [address] [place] Differential cell count method Nom (Bld) Auto Normal [facility] Comment on above: Order Comment: Speci men Type: BLOOD SPECIMEN Ordering Facility: [facility] Address: [address] [place] [address] Performed By: #### 5 7021-8 #### [facility] CLIA [id number] [address] [place] [address] [place] Eosinophils (Bld) [#/Vol] 0.13 10*3/uL Normal <0.46 [facility] Comment on above: Order Comment: Speci men Type: BLOOD SPECIMEN Ordering Facility: [facility] Address: [address] [place] [address] Performed By: #### 5 7021-8 #### [facility] CLIA [id number] [address] [place] [address] [place] Eosinophils/100 WBC (Bld) 2.7 % Normal [facility] Comment on above: Order Comment: Speci men Type: BLOOD SPECIMEN Ordering Facility: [facility] Address: [address] [place] [address] Performed By: #### 5 7021-8 #### [facility] CLIA [id number] [address] [place] [address] [place] Erythrocyte distribution width (RBC) [Ratio] 12.8 % Normal 11.5-15.0 [facility] Comment on above: Order Comment: Speci men Type: BLOOD SPECIMEN Ordering Facility: [facility] Address: [address] [place] [address] Performed By: #### 5 7021-8 #### [facility] CLIA [id number] [address] [place] [address] [place] Hematocrit (Bld) [Volume fraction] 37.4 % Normal 36.0-46.0 [facility] Comment on above: Order Comment: Speci men Type: BLOOD SPECIMEN Ordering Facility: [facility] Address: [address] [place] [address] Performed By: #### 5 7021-8 #### [facility] CLIA [id number] [address] [place] [address] [place] Hemoglobin (Bld) [Mass/Vol] 12.2 g/dL Normal 11.5-15.5 [facility] Comment on above: Order Comment: Speci men Type: BLOOD SPECIMEN Ordering Facility: [facility] Address: [address] [place] [address] Performed By: #### 5 7021-8 #### [facility] CLIA [id number] [address] [place] [address] [place] Immature granulocytes (Bld) [#/Vol] 10*3/uL Normal <0.10 [facility] Comment on above: Order Comment: Speci men Type: BLOOD SPECIMEN Ordering Facility: [facility] Address: [address] [place] [address] Performed By: #### 5 7021-8 #### [facility] CLIA [id number] [address] [place] [address] [place] Immature granulocytes/100 WBC (Bld) 0.0 % Normal [facility] Comment on above: Order Comment: Speci men Type: BLOOD SPECIMEN Ordering Facility: [facility] Address: [address] [place] [address] Performed By: #### 5 7021-8 #### [facility] CLIA [id number] [address] [place] [address] [place] Lymphocytes (Bld) [#/Vol] 1.45 10*3/uL Normal 1.00-4.00 [facility] Comment on above: Order Comment: Speci men Type: BLOOD SPECIMEN Ordering Facility: [facility] Address: [address] [place] [address] Performed By: #### 5 7021-8 #### [facility] CLIA [id number] [address] [place] [address] [place] Lymphocytes/100 WBC (Bld) 29.7 % Normal [facility] Comment on above: Order Comment: Speci men Type: BLOOD SPECIMEN Ordering Facility: [facility] Address: [address] [place] [address] Performed By: #### 5 7021-8 #### [facility] CLIA [id number] [address] [place] [address] [place] MCH (RBC) [Entitic mass] 30.5 pg Normal 26.0-34.0 [facility] Comment on above: Order Comment: Speci men Type: BLOOD SPECIMEN Ordering Facility: [facility] Address: [address] [place] [address] Performed By: #### 5 7021-8 #### [facility] CLIA [id number] [address] [place] [address] [place] MCHC (RBC) [Mass/Vol] 32.6 g/dL Normal 30.5-36.0 [facility] Comment on above: Order Comment: Speci men Type: BLOOD SPECIMEN Ordering Facility: [facility] Address: [address] [place] [address] Performed By: #### 5 7021-8 #### [facility] CLIA [id number] [address] [place] [address] [place] MCV (RBC) [Entitic vol] 93.5 fL Normal 80.0-100.0 [facility] Comment on above: Order Comment: Speci men Type: BLOOD SPECIMEN Ordering Facility: [facility] Address: [address] [place] [address] Performed By: #### 5 7021-8 #### [facility] CLIA [id number] [address] [id number] [address] [place] Monocytes (Bld) [#/Vol] 0.44 10*3/uL Normal <0.87 [facility] Comment on above: Order Comment: Speci men Type: BLOOD SPECIMEN Ordering Facility: [facility] Address: [address] [place] [address] Performed By: #### 5 7021-8 #### [facility] CLIA [id number] [address] [place] [address] [place] Monocytes/100 WBC (Bld) 9.0 % Normal [facility] Comment on above: Order Comment: Speci men Type: BLOOD SPECIMEN Ordering Facility: [facility] Address: [address] [place] [address] Performed By: #### 5 7021-8 #### [facility] CLIA [id number] [address] [place] [address] [place] Neutrophils (Bld) [#/Vol] 2.84 10*3/uL Normal 1.45-7.50 [facility] Comment on above: Order Comment: Speci men Type: BLOOD SPECIMEN Ordering Facility: [facility] Address: [address] [place] [address] Performed By: #### 5 7021-8 #### [facility] CLIA [id number] [address] [place] [address] [place] Neutrophils/100 WBC (Bld) 58.2 % Normal [facility] Comment on above: Order Comment: Speci men Type: BLOOD SPECIMEN Ordering Facility: [facility] Address: [address] [place] [address] Performed By: #### 5 7021-8 #### [facility] CLIA [id number] [address] [place] [address] [place] Nucleated RBC (Bld) [#/Vol] 10*3/uL Normal <0.01 [facility] Comment on above: Order Comment: Speci men Type: BLOOD SPECIMEN Ordering Facility: [facility] Address: [address] [place] [address] Performed By: #### 5 7021-8 #### [facility] CLIA [id number] [address] [place] [address] [place] Nucleated RBC/100 WBC (Bld) [Ratio] 0.0 /100 WBC Normal [facility] Comment on above: Order Comment: Speci men Type: BLOOD SPECIMEN Ordering Facility: [facility] Address: [address] [place] [address] Performed By: #### 5 7021-8 #### [facility] CLIA [id number] [address] [place] [address] [place] Platelet mean volume (Bld) [Entitic vol] 10.8 fL Normal 9.0-12.7 [facility] Comment on above: Order Comment: Speci men Type: BLOOD SPECIMEN Ordering Facility: [facility] Address: [address] [place] [address] Performed By: #### 5 7021-8 #### [facility] CLIA [id number] [address] [place] [address] [place] Platelets (Bld) [#/Vol] 161 10*3/uL Normal 150-400 [facility] Comment on above: Order Comment: Speci men Type: BLOOD SPECIMEN Ordering Facility: [facility] Address: [address] [place] [address] Performed By: #### 5 7021-8 #### [facility] CLIA [id number] [address] [place] [address] [place] RBC (Bld) [#/Vol] 4.00 10*6/uL Normal 3.90-5.20 [facility] Comment on above: Order Comment: Speci men Type: BLOOD SPECIMEN Ordering Facility: [facility] Address: [address] [place] [address] Performed By: #### 5 7021-8 #### [facility] CLIA [id number] [address] [place] [address] [place] WBC (Bld) [#/Vol] 4.88 10*3/uL Normal 3.70-11.00 [facility] Comment on above: Order Comment: Speci men Type: BLOOD SPECIMEN Ordering Facility: [facility] Address: [address] [place] [address] Performed By: #### 5 7021-8 #### [facility] CLIA [id number] [address] [place] [address] [place] CNOVon 10-29-2024 CNOV Office Visit (CATHMN ) GOGO WARE ([id number]) 1940 F Date Time Provider Department 10/29/24 1:00 PM [facility] CATH[facility] During your visit today, we recorded the following information about you: Pulse Blood pressure Weight Height 65/minute 138/70 73.9 kg 1.651 m Kacy Jimenez, SKIP.NAPPER GRINDER 10/29/2024 2:10 PM Signed [facility] L[facility]pez Department of Cardiovascular Medicine SECTION OF INTERVENTIONAL CARDIOLOGY OUTPATIENT VISIT DATE October 29, 2024 OUTPATIENT VISIT TYPE ESTABLISHED FOLLOW UP Primary [employer] Professionals: Dr. Lindo Chief Complaint: Patient here for cardiac follow up evaluation History of Present Illness: Patient is a 84 year old female who presents for follow up visit today. She was last seen by Dr. Wells on 08/31/2024. She is here today with her friend. Since last vist the patient has not had any change in her symptoms, which are very little. She mostly hs noticed a change in her energy. Denies: chest pain, shortness of breath, PND, lightheadedness, syncope, and leg swelling CARDIOVASCULAR MEDICINE TESTING: Electrocardiogram: NSR with first degree AVB Vent. rate 60 BPM DC interval 212 ms QRS duration 92 ms QT/QTcB 420/420 ms P-R-T axes 85 12 77 Chest X-ray: RESULT: Lines, tubes, and devices: None. Lungs and pleura: No consolidation. Bibasilar atelectasis. No pleural effusion. No pneumothorax. Cardiomediastinal silhouette: Stable enlarged cardiomediastinal silhouette. Atherosclerotic calcifications of the thoracic aorta. Blunting of the cardiophrenic angle, likely prominent epicardial fat pad. Bones and soft tissues: Degenerative changes are present within the thoracic spine. Laboratory Testing: Latest Ref Rn 10/29/2024 WBC 3.70 - 11.00 k/uL 4.88 RBC 3.90 - 5.20 m/uL 4.00 Hemoglobin 11.5 - 15.5 g/dL 12.2 Hematocrit 36.0 - 46.0 % 37.4 MCV 80.0 - 100.0 fL 93.5 MCH 26.0 - 34.0 pg 30.5 MCHC 30.5 - 36.0 g/dL 32.6 RDW-CV 11.5 - 15.0 % 12.8 Platelet Count 150 - 400 k/uL 161 MPV 9.0 - 12.7 fL 10.8 Neut% % 58.2 Abs Neut (ANC) 1.45 - 7.50 k/uL 2.84 Lymph% % 29.7 Abs Lymph 1.00 - 4.00 k/uL 1.45 Stanly% % 9.0 Abs Stanly <0.87 k/uL 0.44 Eosin% % 2.7 Abs Eosin <0.46 k/uL 0.13 Baso% % 0.4 Abs Baso <0.11 k/uL <0.03 Immature Gran % % 0.0 IMMATURE GRANS (ABS) <0.10 k/uL <0.03 NRBC /100 WBC 0.0 Absolute nRBC <0.01 k/uL <0.01 DTYPE Auto Protein, Total 6.3 - 8.0 g/dL 6.8 Albumin 3.9 - 4.9 g/dL 4.2 Calcium 8.5 - 10.2 mg/dL 9.7 Bilirubin, Total 0.2 - 1.3 mg/dL 0.4 Alkaline Phosphatase 34 - 123 U/L 65 AST 13 - 35 U/L 38 (H) ALT 7 - 38 U/L 9 Glucose 74 - 99 mg/dL 114 (H) BUN 7 - 21 mg/dL 20 Creatinine 0.58 - 0.96 mg/dL 0.84 Sodium 136 - 144 mmol/L 141 Potassium 3.7 - 5.1 mmol/L 4.3 Chloride 98 - 107 mmol/L 106 CO2 22 - 30 mmol/L 25 Anion Gap 8 - 15 mmol/L 10 eGFR >=60 mL/min/1.73m? 68 PT Sec 9.7 - 13.0 sec 11.4 PT INR 0.9 - 1.3 1.1 NT Pro BNP <450 pg/mL 1,804 (H) Legend: (H) High REVIEW OF SYSTEMS: HEENT: Denies recent severe headaches, visual changes, difficulty swallowing. 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 GENITOURINARY: Denies hematuria or dysuria. MUSCULOSKELETAL: Denies claudication or muscle myalgias. NEUROLOGIC: Denies unilateral paralysis, slurred speech. SKIN: Denies skin ulcers or lesions. HEMATOLOGICAL: Denies gingival bleeding, or prolonged epistaxis. ENDOCRINE:Denies heat or cold intolerance, excessive thirst or urination. All Other Remaining ROS negative. PHYSICAL EXAM: BP 138/70 Pulse 65 Ht 165.1 cm (5' 5") Wt 73.9 kg (163 lb) SpO2 96% BMI 27.12 kg/m? General: Normal exam, and accompanied by friend Neck : Neck veins are not distended Cardiac: Rhythm: regular rate and rhythm, Rate: normal, Murmur 1:3/6, systolic, harsh, LSB, radiates to diffuse, S1: normal intensity, S2: normal intensity Chest: Chest clear to percussion and auscultation Abdomen: Normal, Bowel Sounds: Present Extremities: normal exam of the extremities, no edema present Pulses: posterior tibial pulses present both Skin: No clubbing, no cyanosis. Neuro: Oriented to person, place and time, alert, cooperative, gait coordinated. HISTORY Gogo Ware is an 84 year old female with pmhx of: CAD (cath in 2018 showing moderate RCA and LAD disease, RCA iFR 0.96 and LAD iFR was abnormal at 0.84 (patient opted not to proceed with PCI of mid LAD, hence being medically managed)) -Severe aortic stenosis -HFpEF (EF 64%) -HTN, HLD -Glaucoma (left eye completely blind) ASSESSMENT: Gogo Ware has severe, aortic valve stenosis without many symptoms except for a mild decrease in energy, but her ECHO shows significant and her BNP is also elevated. NYHA FC II/III. Beta Madhu: Cor (more content not included)... [facility] GOGO W[facility] ([id number]) 1940 F Date Time Provider Department 10/29/24 12:20 PM ANESTHESIA CLEARANCE CARTMN During your visit today, we recorded the following information about you: Charles Garcia MD 10/29/2024 12:58 PM Signed Cardiothoracic Anesthesiology Preoperative Assessment Service Date: 10/29/2024 Service Time: 12:49 PM Primary Care Physician: Eh Huddleston MD Subjective Patient Entered Data: 10/29/2024 Cardiothoracic Surgery Pre-Op Questionnaire Previous anesthesia problems No Family history anesthesia problems No Blood consent No Esophageal history None Implanted devices No History difficult airway No Airway surgery No Ongoing pain issues No Heparin intolerance No Daily alcohol use No Illicit drug use No Scheduled procedure: TAVR Surgeon: Russell Scheduled date: 10/30/2024 HPI: 84y/o F scheduled for the above procedure due to severe (pk/mn 99/57, EFFIE 0.45 cm2). PMH: -CAD (cath in 2018 showing moderate RCA and LAD disease, RCA iFR 0.96 and LAD iFR was abnormal at 0.84 (patient opted not to proceed with PCI of mid LAD, hence being medically managed)) -HFpEF (EF 64%) -HTN - HLD -Glaucoma (left eye completely blind) - Discussed anesthetic plan, management, and perioperative medication management. Holding Valsartan Review no known heparin intolerance not taking anticoagulant/antiplatelet medication no non-cardiac IEDs present no known esophageal disorders blood transfusion consented - COVID-19 Immunization Status Overdue - Covid-19 Vaccine (1 - 2024- season) Never done No completion, postpone, frequency change, or communication history exists for this topic. 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) Insomnia Glaucoma Nonrheumatic Aortic Valve Stenosis PAST MEDICAL HISTORY Diagnosis Date Aortic valve stenosis CAD (coronary artery disease) Disease PROBLEM SLEEPING Essential hypertension Glaucoma HTN (hypertension) Mixed hyperlipidemia PAST SURGICAL HISTORY Procedure Laterality Date PROCEDURE 1999, 2006 BOTH HIPS REPLACED PROCEDURE 10/28/2009 LASER OU FOR GLAUCOMA REMV CATARACT EXTRACAP,INSERT LENS Left 04/20/2024 FAMILY HISTORY Problem Relation Age of Onset Glaucoma Father Diabetes Father Coronary Artery Disease Sister Colon Cancer Maternal Grandmother Stroke Maternal Grandfather Blindness Other GREAT AUNT Colon Cancer Other Social History Tobacco Use Smoking status: Never Smokeless tobacco: Never Vaping Use Vaping status: Never Used Substance Use Topics Alcohol use: Never Drug use: Never Prior to Admission medications as of 09/03/24 8185 Medication Sig Last Dose Taking valsartan (DIOVAN) 160 mg tablet Take 0.5 tablets by mouth once daily. moxifloxacin (VIGAMOX) 0.5 % ophthalmic solution Use 1 Drop in the left eye four times daily. Patient not taking: Reported on 05/26/2024 carvedilol (COREG) 12.5 mg tablet Take 1 tablet by mouth twice daily with meals. atorvastatin (LIPITOR) 40 mg tablet Take 1 tablet by mouth once daily. brimonidine (ALPHAGAN) 0.2 % ophthalmic solution Use 2 Drops in both eyes twice daily. DORZOLAMIDE HCL/TIMOLOL MALEAT (DORZOLAMIDE-TIMOLOL OPHTHALMIC) Use 1 Drop in eyes twice daily. aspirin, enteric coated (ASPIRIN, ENTERIC COATED) 81 mg EC tablet Take 81 mg by mouth once daily. temazepam (RESTORIL) 30 mg cap Take 30 mg by mouth at bedtime as needed. latanoprost (XALATAN) 0.005 % ophthalmic solution Use 1 Drop in both eyes daily at bedtime. Medication Comments documented by Cari Roque COT on 01/05/2013 at 1354. PT STATES SHE USES ANOTHER DROP, GREEN TOP, AT NIGHT OU ALLERGIES No Known Allergies Objective Pain Assessment: Vitals: There were no vitals taken for this visit. Diagnostic tests reviewed for today's visit: Lab Value Units Date High Low HB 12.2 g/dL 10/29/2024 15.5 11.5 HCT 37.4 % 10/29/2024 46.0 36.0 WBC 4.88 k/uL 10/29/2024 11.00 3.70 PLT 161 k/uL 10/29/2024 400 150 NA 141 mmol/L 10/29/2024 144 136 K 4.3 mmol/L 10/29/2024 5.1 3.7 GLUC 114 mg/dL 10/29/2024 99 74 BUN 20 mg/dL 10/29/2024 21 7 CREAT 0.84 mg/dL 10/29/2024 0.96 0.58 CREAT 0.80 mg/dL 08/31/2024 1.4 0.7 PTSEC 11.4 sec 10/29/2024 13.0 9.7 INR 1.1 no uni* 10/29/2024 1.3 0.9 APTT No results within date range. ALT 9 U/L 10/29/2024 38 7 AST 38 U/L 10/29/2024 35 13 TBILI 0.4 mg/dL 10/29/2024 1.3 0.2 TSH No results within date range. Lab Value Units Date High Low HCGQT No results within date range. UHCG No results within date range. HCG, BODY* No results within date range. Lab Value Units Date High Low ABORHD No results within date range. ABSCREEN No results withi (more content not included)... Normal [facility] Comprehensive metabolic 2000 panelon 10-29-2024 Albumin [Mass/Vol] 4.2 g/dL Normal 3.9-4.9 [facility] Comment on above: Order Comment: Speci men Type: BLOOD SPECIMEN Ordering Facility: [facility] Address: [address] [place] [address] Performed By: #### 2 4323-8, HSTNT, 58266-5 #### [facility] CLIA [id number] [address] [facility] [address] [place] ALP [Catalytic activity/Vol] 65 U/L Normal 34-123 [facility] Comment on above: Order Comment: Speci men Type: BLOOD SPECIMEN Ordering Facility: [facility] Address: [address] [place] [address] Performed By: #### 2 4323-8, HSTNT, 71275-9 #### [facility] CLIA [id number] [address] [place] [address] [place] ALT [Catalytic activity/Vol] 9 U/L Normal 7-38 [facility] Comment on above: Order Comment: Speci men Type: BLOOD SPECIMEN Ordering Facility: [facility] Address: [address] [place] [address] Performed By: #### 2 4323-8, HSTNT, 51829-6 #### [facility] CLIA [id number] [address] [place] [address] [place] Anion gap [Moles/Vol] 10 mmol/L Normal 8-15 [facility] Comment on above: Order Comment: Speci men Type: BLOOD SPECIMEN Ordering Facility: [facility] Address: [address] [place] [address] Performed By: #### 2 4323-8, HSTNT, 30884-4 #### [facility] CLIA [id number] [address] [place] [address] [place] AST [Catalytic activity/Vol] 38 U/L High 13-35 [facility] Comment on above: Order Comment: Speci men Type: BLOOD SPECIMEN Ordering Facility: [facility] Address: [address] [place] [address] Performed By: #### 2 4323-8, HSTNT, 52889-9 #### [facility] CLIA [id number] [address] [place] [address] [place] Bilirubin [Mass/Vol] 0.4 mg/dL Normal 0.2-1.3 [facility] Comment on above: Order Comment: Speci men Type: BLOOD SPECIMEN Ordering Facility: [facility] Address: [address] [place] [address] Performed By: #### 2 4323-8, HSTNT, 28432-5 #### [facility] CLIA [id number] [address] [place] [address] [place] Calcium [Mass/Vol] 9.7 mg/dL Normal 8.5-10.2 [facility] Comment on above: Order Comment: Speci men Type: BLOOD SPECIMEN Ordering Facility: [facility] Address: [address] [place] [address] Performed By: #### 2 4323-8, HSTNT, 66777-2 #### [facility] CLIA [id number] [address] [place] [address] [place] Chloride [Moles/Vol] 106 mmol/L Normal 98-107 [facility] Comment on above: Order Comment: Speci men Type: BLOOD SPECIMEN Ordering Facility: [facility] Address: [address] [place] [address] Performed By: #### 2 4323-8, HSTNT, 41921-9 #### [facility] CLIA [id number] [address] [place] [address] [place] CO2 [Moles/Vol] 25 mmol/L Normal 22-30 [facility] Comment on above: Order Comment: Speci men Type: BLOOD SPECIMEN Ordering Facility: [facility] Address: [address] [place] [address] Performed By: #### 2 4323-8, HSTNT, 78154-4 #### [facility] CLIA [id number] [address] [place] [address] [place] Creatinine [Mass/Vol] 0.84 mg/dL Normal 0.58-0.96 [facility] Comment on above: Order Comment: Speci men Type: BLOOD SPECIMEN Ordering Facility: [facility] Address: [address] [place] [address] Performed By: #### 2 4323-8, HSTNT, 56749-2 #### [facility] CLIA [id number] [address] [place] [address] [place] Creatinine and Glomerular filtration rate.predicted panel (S/P/Bld) 68 mL/min/1.73m??? Normal >=60 [facility] Comment on above: Order Comment: Terri mittal Type: BLOOD SPECIMEN Ordering Facility: [facility] Address: [address] [place] [address] Result Comment: Leanne mated Glomerular Filtration Rate (eGFR) is calculated using the 2020 CKD-EPI creatinine equation. This equation utilizes serum creatinine, sex, and age as parameters. The creatinine assay has traceable calibration to isotope dilution-mass spectrometry. Refer to KDIGO guidelines for clinical interpretation. In patients with unstable renal function, e.g. those with acute kidney injury, the eGFR may not accurately reflect actual GFR. Performed By: #### 2 4323-8, HSTNT, 83971-0 #### [facility] CLIA [id number] [address] [place] [address] [place] Glucose [Mass/Vol] 114 mg/dL High 74-99 [facility] Comment on above: Order Comment: Terri mittal Type: BLOOD SPECIMEN Ordering Facility: [facility] Address: [address] [place] [address] Result Comment: The [place] [employer] (ADA) provides guidance for cutoff values for fasting glucose and random glucose. The ADA defines fasting as no caloric intake for at least 8 hours. Fasting plasma glucose results between 100 to 125 mg/dL indicate increased risk for diabetes (prediabetes). Fasting plasma glucose results greater than or equal to 126 mg/dL meet the criteria for diagnosis of diabetes. In the absence of unequivocal hyperglycemia, results should be confirmed by repeat testing. In a patient with classic symptoms of hyperglycemia or hyperglycemic crisis, random plasma glucose results greater than or equal to 200 mg/dL meet the criteria for diagnosis of diabetes. Reference: Standards of Medical Care in Diabetes 2016, [place] [employer]. Diabetes Care. 2016.39(Suppl 1). Performed By: #### 2 4323-8, HSTNT, 99211-7 #### [facility] CLIA [id number] [address] [place] [address] [place] Potassium [Moles/Vol] 4.3 mmol/L Normal 3.7-5.1 [facility] Comment on above: Order Comment: Speci men Type: BLOOD SPECIMEN Ordering Facility: [facility] Address: [address] [place] [address] Performed By: #### 2 4323-8, HSTNT, 24125-0 #### [facility] CLIA [id number] [address] [place] [address] [place] Protein [Mass/Vol] 6.8 g/dL Normal 6.3-8.0 [facility] Comment on above: Order Comment: Speci men Type: BLOOD SPECIMEN Ordering Facility: [facility] Address: [address] [place] [address] Performed By: #### 2 4323-8, HSTNT, 53098-1 #### [facility] CLIA [id number] [address] [place] [address] [place] Sodium [Moles/Vol] 141 mmol/L Normal 136-144 [facility] Comment on above: Order Comment: Speci men Type: BLOOD SPECIMEN Ordering Facility: [facility] Address: [address] [place] [address] Performed By: #### 2 4323-8, HSTNT, 03676-8 #### [facility] CLIA [id number] [address] [place], [place] [address] [place] Urea nitrogen [Mass/Vol] 20 mg/dL Normal 7-21 [facility] Comment on above: Order Comment: Speci men Type: BLOOD SPECIMEN Ordering Facility: [facility] Address: [address] [place] [address] Performed By: #### 2 4323-8, HSTNT, 74140-9 #### [facility] CLIA [id number] [address] [place] [address] [place] ECG COMPLETEon 10-29-2024 ECG COMPLETE Ventricular Rate : 6 0 BPM Atrial Rate : 60 BPM P-R Interval : 212 ms QRS Duration : 92 ms Q-T Interval : 420 ms QTC Calculation(Bazett) : 420 ms Calculated P [place] : 85 degrees Calculated R [place] : 12 degrees Calculated T [place] : 77 degrees SINUS RHYTHM WITH 1ST DEGREE AV BLOCK OTHERWISE NORMAL ECG Confirmed by AZUL OSMAN MD ([id number]) on 11/03/2024 9:17:13 PM NAME : GOGO WARE PID : [id number] : 1940 Gender : Female Race : ORD : [id number] Procedure Date : Oct 29 2024 09:16:04 Edit Date : Nov 03 2024 21:17:16 Diagnosis: SINUS RHYTHM WITH 1ST DEGREE AV BLOCK OTHERWISE NORMAL ECG Confirmed by AZUL OSMAN MD ([id number]) on 11/03/2024 9:17:13 PM Test Reason : Location : [facility] : [facility]- Overread By : AZUL OSMAN MD Edited By : AZUL OSMAN MD Referred By : LUBA LLANES Acquired by : MAYCOL LUCAS Normal [facility] HIGH SENSITIVITY TROPONIN To n 10-29-2024 Troponin T.cardiac High sensitivity method [Mass/Vol] 17 ng/L High <12 [facility] Comment on above: Order Comment: Terri mittal Type: BLOOD SPECIMEN Ordering Facility: [facility] Address: [address] [place] [address] Performed By: #### 2 4323-8, HSTNT, 89822-7 #### [facility] CLIA [id number] [address] [place] [address] [place] LPa SerPl-mCncon 10-29-2024 Lipoprotein a [Mass/Vol] 14 mg/dL Normal <30 [facility] Comment on above: Order Comment: Terri mittal Type: BLOOD SPECIMEN Ordering Facility: [facility] Address: [address] [place] [address] Performed By: #### 1 0835-7 #### [facility] CLIA [id number] [address] [place] NT-proBNP [facility] 10-29 Natriuretic peptide.B prohormone N-Terminal [Mass/Vol] 1804 pg/mL High <450 [facility] Comment on above: Order Comment: Speci men Type: BLOOD SPECIMEN Ordering Facility: [facility] Address: [address] [place] [address] Performed By: #### 2 4323-8, HSTNT, 85206-8 #### [facility] CLIA [id number] [address] [place] [address] [place] PT panel Coag (PPP)on 2024 INR Coag (PPP) [Relative time] 1.1 {INR} Normal 0.9-1.3 [facility] Comment on above: Order Comment: Speci kyrie Type: BLOOD SPECIMEN Ordering Facility: [facility] Address: [address] [place] [address] Result Comment: Shu min K Antagonist (VKA) Therapeutic Range: INR 2 to 3 (Target INR of 2.5) Note: For patients treated with VKA drugs, such as warfarin, the [place] [employer] 2012 Guideline recommends a therapeutic INR range of 2 to 3 (target INR of 2.5). This recommendation includes high-risk patients with antiphospholipid syndrome with previous arterial or venous thromboembolism, current-generation mechanical or bioprosthetic aortic heart valve replacement. Note: Patients with mechanical aortic valve replacement and additional risk factors for thromboembolic events (atrial fibrillation, previous thromboembolism, LV dysfunction, hypercoagulable conditions) or an older generation mechanical AVR (i.e., ball in-Cage) or any mechanical MVR should have a INR therapeutic range of 2.5 to 3.5 (target INR of 3). Yo GH, et al. Chest 2012, 141:7S-47S Juan R RA, et al. JACC 2017, 70: 252-289 Performed By: #### 2 4323-8, 99156-0 #### [facility] CLIA [id number] [address] [place] [address] [place] PT Coag (PPP) [Time] 11.4 s Normal 9.7-13.0 [facility] Comment on above: Order Comment: Speci men Type: BLOOD SPECIMEN Ordering Facility: [facility] Address: [address] [place] [address] Performed By: #### 2 4323-8, 89261-0 #### [facility] CLIA [id number] [address] [place] [address] OF [facility] TYPE AND SCREEN,30 DAYon ABO AB Normal [facility] Comment on above: Order Comment: Speci men Type: BLOOD SPECIMENOrdering Facility: [facility] Address: [address] [place] [address] Performed By: #### T SCR30 ####[facility]CLIA [id number] [place] [address] [place] Rh Nom (Bld) Positive Normal [facility] Comment on above: Order Comment: Speci men Type: BLOOD SPECIMENOrdering Facility: [facility] Address: [address] [place] [address] Performed By: #### T SCR30 ####[facility] BANKCLIA [id number] [place] [address] [place] XR CHEST 2V FRONTAL/LATon XR CHEST 2V FRONTAL/LAT * * *Final Report* * * DATE OF EXAM: Oct 29 2024 9:21AM JIX [id number] - XR CHEST 2V FRONTAL/LAT / PROCEDURE REASON: multiple diagnoses * * * * Physician Interpretation * * * * EXAMINATION: CHEST RADIOGRAPH (2 VIEW FRONTAL and LATERAL) CLINICAL HISTORY: Nonrheumatic aortic valve stenosis Aortic valve disorder MQ: XC2_6 EXAM DATE/TIME: 10/29/2024 9:21 AM COMPARISON: Chest radiograph(s) dated 08/31/2024 RESULT: Lines, tubes, and devices: None. Lungs and pleura: No consolidation. Bibasilar atelectasis. No pleural effusion. No pneumothorax. Cardiomediastinal silhouette: Stable enlarged cardiomediastinal silhouette. Atherosclerotic calcifications of the thoracic aorta. Blunting of the cardiophrenic angle, likely prominent epicardial fat pad. Bones and soft tissues: Degenerative changes are present within the thoracic spine. IMPRESSION: No acute radiographic abnormality. General Studies Program Chair: ESTIVEN Transcribe Date/Time: Oct 29 2024 10:42A Dictated by : LAURA CARPIO MD This examination was interpreted and the report reviewed and electronically signed by: ANGIE ELKINS MD on Oct 29 2024 11:28AM EST [id number] Normal [facility] XR Chest PA and Lateralon Radiology Study observation (narrative) [facility] IMPRESSION: No acute radiographic abnormality. General Studies Program Chair: MERVIN Transcribe Date/Time: Oct 29 2024 10:42A Dictated by : LAURA CARPIO MD This examination was interpreted and the report reviewed and electronically signed by: ANGIE ELKINS MD on Oct 29 2024 11:28AM EST DIVISION OF RADIOLOGY * * *Final Report* * * DATE OF EXAM: Oct 29 2024 9:21AM JIX 5291 - XR CHEST 2V FRONTAL/LAT / PROCEDURE REASON: multiple diagnoses * * * * Physician Interpretation * * * * EXAMINATION: CHEST RADIOGRAPH (2 VIEW FRONTAL & LATERAL) CLINICAL HISTORY: Nonrheumatic aortic valve stenosis Aortic valve disorder MQ: XC2_6 EXAM DATE/TIME: 10/29/2024 9:21 AM COMPARISON: Chest radiograph(s) dated 08/31/2024 RESULT: Lines, tubes, and devices: None. Lungs and pleura: No consolidation. Bibasilar atelectasis. No pleural effusion. No pneumothorax. Cardiomediastinal silhouette: Stable enlarged cardiomediastinal silhouette. Atherosclerotic calcifications of the thoracic aorta. Blunting of the cardiophrenic angle, likely prominent epicardial fat pad. Bones and soft tissues: Degenerative changes are present within the thoracic spine. DIVISION OF RADIOLOGY Provider, [facility] - 10/29/2024 * * *Final Report* * * DATE OF EXAM: Oct 29 2024 9:21AM JIX 5291 - XR CHEST 2V FRONTAL/LAT / PROCEDURE REASON: multiple diagnoses * * * * Physician Interpretation * * * * EXAMINATION: CHEST RADIOGRAPH (2 VIEW FRONTAL & LATERAL) CLINICAL HISTORY: Nonrheumatic aortic valve stenosis Aortic valve disorder MQ: XC2_6 EXAM DATE/TIME: 10/29/2024 9:21 AM COMPARISON: Chest radiograph(s) dated 08/31/2024 RESULT: Lines, tubes, and devices: None. Lungs and pleura: No consolidation. Bibasilar atelectasis. No pleural effusion. No pneumothorax. Cardiomediastinal silhouette: Stable enlarged cardiomediastinal silhouette. Atherosclerotic calcifications of the thoracic aorta. Blunting of the cardiophrenic angle, likely prominent epicardial fat pad. Bones and soft tissues: Degenerative changes are present within the thoracic spine. IMPRESSION IMPRESSION: No acute radiographic abnormality. General Studies Program Chair: PSCB Transcribe Date/Time: Oct 29 2024 10:42A Dictated by : LAURA CARPIO MD This examination was interpreted and the report reviewed and electronically signed by: ANGIE ELKINS MD on Oct 29 2024 11:28AM EST [facility] XR Chest PA and LateralOrder ed By: [facility] Provider on 10-29-2024 [facility] 14-HH-Kahiuiz DOrdered By: Yareli Huddleston on 10-01-2024 Vitamin D 25-Hydroxy 22.4 ng/mL [facility] Comment on above: Vitamin D 25(OH) Sta tus Range Deficiency <20 ng/mL (50nmol/L) Insufficiency 20 - 30 ng/mL (50 - 75 nmol/L) Sufficiency 30 - 100 ng/mL (75 - 250 nmol/L) Toxicity >100 ng/mL (>250 nmol/L) Absolute neutrophil countOrd ered By: Eh Huddleston on 10-01-2024 Neutrophils (Bld) [#/Vol] 4.2 10*3/uL 2.0-7.7 [facility] Albumin to globulin ratioOrd ered By: Eh Huddleston on 10-01-2024 Albumin/Globulin [Mass ratio] 1.0 {ratio} 0.9-2.4 [facility] Basophil percentageOrdered B y: Eh Huddleston on 10-01-2024 Basophils/100 WBC (Bld) 0.5 % 0-1 [facility] Bilirubin, totalOrdered By: Eh Huddleston on 10-01-2024 Bilirubin [Mass/Vol] 0.50 mg/dL 0.20-1.00 [facility] Comment on above: For patients on eltr ombopag therapy, use of Dimension Carrizozo TBIL is not recommended. Blood urea nitrogen (BUN)/cr eatinine ratioOrdered By: Eh Huddleston on 10-01-2024 Urea nitrogen/Creatinine [Mass ratio] 22.1 mg/mg High 10-20 [facility] CBC W/Diff, Automatedon Absolute Lymph 1.61 X10 3/uL Normal 0.83-4.51 [facility] Comment on above: Performed By: #### L 100.0100, L500.4050, L501.9520, L500.4100, L506.1000 ####[facility] [address] [place], [address] Absolute Neut 4.2 X10 3/uL Normal 2.0-7.7 [facility] Comment on above: Performed By: #### L 100.0100, L500.4050, L501.9520, L500.4100, L506.1000 ####[facility] [address] [place], [address] Basophils/100 WBC (Bld) 0.5 % Normal 0-1 [facility] Comment on above: Performed By: #### L 100.0100, L500.4050, L501.9520, L500.4100, L506.1000 ####[facility] [address] [place], [address] Eosinophils/100 WBC (Bld) 2.0 % Normal 0-5 [facility] Comment on above: Performed By: #### L 100.0100, L500.4050, L501.9520, L500.4100, L506.1000 ####[facility] [address] [place], [address] Erythrocyte distribution width (RBC) [Ratio] 13.2 % Normal 11.6-14.6 [facility] Comment on above: Performed By: #### L 100.0100, L500.4050, L501.9520, L500.4100, L506.1000 ####[facility] [address] [place], [address] Hematocrit (Bld) [Volume fraction] 38.6 % Normal 37-47 [facility] Comment on above: Performed By: #### L 100.0100, L500.4050, L501.9520, L500.4100, L506.1000 ####[facility] [address] [place], [address] Hemoglobin (Bld) [Mass/Vol] 12.6 g/dL Normal 12.0-15.0 [facility] Comment on above: Performed By: #### L 100.0100, L500.4050, L501.9520, L500.4100, L506.1000 ####[facility] [address] [place], [address] IG% 0.200 Normal 0.0-0.9 [facility] Comment on above: Result Comment: IG% - Immature Granulocytes (promyelocytes, myelocytes andmetamyelocytes) > 1% indicates that a LEFT SHIFT is Present. Performed By: #### L 100.0100, L500.4050, L501.9520, L500.4100, L506.1000 ####[facility] [address] [place], [address] Lymphocytes/100 WBC (Bld) 25.0 % Normal 19-41 [facility] Comment on above: Performed By: #### L 100.0100, L500.4050, L501.9520, L500.4100, L506.1000 ####[facility] [address] [place], [address] MCH (RBC) [Entitic mass] 30.9 pg Normal 27.0-32.0 [facility] Comment on above: Performed By: #### L 100.0100, L500.4050, L501.9520, L500.4100, L506.1000 ####[facility] [address] [place], [address] MCHC (RBC) [Mass/Vol] 32.6 g/dL Normal 32-36 [facility] Comment on above: Performed By: #### L 100.0100, L500.4050, L501.9520, L500.4100, L506.1000 ####[facility] [address] [place], [address] MCV (RBC) [Entitic vol] 94.6 fL Normal 81-99 [facility] Comment on above: Performed By: #### L 100.0100, L500.4050, L501.9520, L500.4100, L506.1000 ####[facility] [address] [place], [address] Monocytes/100 WBC (Bld) 6.8 % Normal 0-10 [facility] Comment on above: Performed By: #### L 100.0100, L500.4050, L501.9520, L500.4100, L506.1000 ####[facility] [address] [place], [address] Neutrophils/100 WBC (Bld) 65.5 % Normal 47-70 [facility] Comment on above: Performed By: #### L 100.0100, L500.4050, L501.9520, L500.4100, L506.1000 ####[facility] [address] [place], [address] Nucleated RBC (Bld) [#/Vol] 0 10*3/uL Normal 0-5 [facility] Comment on above: Performed By: #### L 100.0100, L500.4050, L501.9520, L500.4100, L506.1000 ####[facility] [address] [place], [address] Platelet mean volume (Bld) [Entitic vol] 10.6 fL Normal 6.2-12.0 [facility] Comment on above: Performed By: #### L 100.0100, L500.4050, L501.9520, L500.4100, L506.1000 ####[facility] [address] [place], [address] Platelets (Bld) [#/Vol] 187 10*3/uL Normal 150-450 [facility] Comment on above: Performed By: #### L 100.0100, L500.4050, L501.9520, L500.4100, L506.1000 ####[facility] [address] [place], [address] RBC (Bld) [#/Vol] 4.08 10*6/uL Low 4.2-5.4 [facility] Comment on above: Performed By: #### L 100.0100, L500.4050, L501.9520, L500.4100, L506.1000 ####[facility] [address] [place], [address] RDW SD 46.2 fl High 35.1-43.9 [facility] Comment on above: Performed By: #### L 100.0100, L500.4050, L501.9520, L500.4100, L506.1000 ####[facility] [address] [place], [address] WBC (Bld) [#/Vol] 6.4 10*3/uL Normal 4.4-11.0 [facility] Comment on above: Performed By: #### L 100.0100, L500.4050, L501.9520, L500.4100, L506.1000 ####[facility] [address] [place], [address] Carbon dioxide measurementOr dered By: Eh Flaquito on 10-01-2024 CO2 [Moles/Vol] 27.0 mmol/L 21.0-32.0 [facility] Chloride measurementOrdered By: Eh Huddleston on 10-01-2024 Chloride [Moles/Vol] 108 mmol/L High 98-107 [facility] Comprehensive Metabolic Prof ilon 10-01-2024 Albumin [Mass/Vol] 3.8 g/dL Normal 3.2-5.0 [facility] Comment on above: Performed By: #### L 100.0100, L500.4050, L501.9520, L500.4100, L506.1000 ####[facility] [address] [place], [address] Albumin/Globulin [Mass ratio] 1.0 {ratio} Normal 0.9-2.4 [facility] Comment on above: Performed By: #### L 100.0100, L500.4050, L501.9520, L500.4100, L506.1000 ####[facility] [address] [place], [address] ALK P 67 U/L Normal 45-117 [facility] Comment on above: Performed By: #### L 100.0100, L500.4050, L501.9520, L500.4100, L506.1000 ####[facility] [address] [place], [address] ALT [Catalytic activity/Vol] 15 U/L Normal 13-56 [facility] Comment on above: Performed By: #### L 100.0100, L500.4050, L501.9520, L500.4100, L506.1000 ####[facility] [address] [place], [address] AST [Catalytic activity/Vol] 44 U/L High 15-37 [facility] Comment on above: Performed By: #### L 100.0100, L500.4050, L501.9520, L500.4100, L506.1000 ####[facility] [address] [place], [address] Bilirubin [Mass/Vol] 0.50 mg/dL Normal 0.20-1.00 [facility] Comment on above: Result Comment: For patients on eltrombopag therapy, use of Dimension Carrizozo TBIL is not recommended. Performed By: #### L 100.0100, L500.4050, L501.9520, L500.4100, L506.1000 ####[facility] [address] [place], [address] BUN/CRE 22.1 RATIO High 10-20 [facility] Comment on above: Performed By: #### L 100.0100, L500.4050, L501.9520, L500.4100, L506.1000 ####[facility] [address] [place], [address] CA,Total 9.4 mg/dL Normal 8.5-10.1 [facility] Comment on above: Performed By: #### L 100.0100, L500.4050, L501.9520, L500.4100, L506.1000 ####[facility] [address] [place], [address] Chloride [Moles/Vol] 108 mmol/L High 98-107 [facility] Comment on above: Performed By: #### L 100.0100, L500.4050, L501.9520, L500.4100, L506.1000 ####[facility] [address] [place], [address] CO2 [Moles/Vol] 27.0 mmol/L Normal 21.0-32.0 [facility] Comment on above: Performed By: #### L 100.0100, L500.4050, L501.9520, L500.4100, L506.1000 ####[facility] [address] [place], [address] Creatinine [Mass/Vol] 0.90 mg/dL Normal 0.55-1.02 [facility] Comment on above: Result Comment: The validity of the calculated GFR GFRAA in patients over70 years has not been determined. Clinical correlation isessential. Performed By: #### L 100.0100, L500.4050, L501.9520, L500.4100, L506.1000 ####[facility] [address] [place], [address] EST GFR - AA 76 mL/min Normal >60 [facility] Comment on above: Result Comment: Afri can Iranian GFR Calc Performed By: #### L 100.0100, L500.4050, L501.9520, L500.4100, L506.1000 ####[facility] [address] [place], [address] GAP 4 Low 5-15 [facility] Comment on above: Performed By: #### L 100.0100, L500.4050, L501.9520, L500.4100, L506.1000 ####[facility] [address] [place], [address] GFR/1.73 sq M.predicted among non-blacks MDRD (S/P/Bld) [Vol rate/Area] 63 mL/min/{1.73_m2} Normal >60 [facility] Comment on above: Result Comment: Non- GFR Calc Performed By: #### L 100.0100, L500.4050, L501.9520, L500.4100, L506.1000 ####[facility] [address] [place], [address] Globulin (S) [Mass/Vol] 3.7 g/dL Normal 2.2-4.2 [facility] Comment on above: Performed By: #### L 100.0100, L500.4050, L501.9520, L500.4100, L506.1000 ####[facility] [address] [place], [address] Glucose [Mass/Vol] 103 mg/dL Normal 74-106 [facility] Comment on above: Result Comment: Fast ing Glucose result from 100 to 125 mg/dLsuggests IMPAIRED HOMEOSTASIS per A.D.A. criteria. Performed By: #### L 100.0100, L500.4050, L501.9520, L500.4100, L506.1000 ####[facility] [address] [place], [address] Potassium [Moles/Vol] 4.4 mmol/L Normal 3.5-5.1 [facility] Comment on above: Performed By: #### L 100.0100, L500.4050, L501.9520, L500.4100, L506.1000 ####[facility] [address] [place], [address] Sodium [Moles/Vol] 139 mmol/L Normal 136-145 [facility] Comment on above: Performed By: #### L 100.0100, L500.4050, L501.9520, L500.4100, L506.1000 ####[facility] [address] [place], [address] T PROT 7.5 g/dL Normal 6.4-8.2 [facility] Comment on above: Performed By: #### L 100.0100, L500.4050, L501.9520, L500.4100, L506.1000 ####[facility] [address] [place], [address] Urea nitrogen [Mass/Vol] 20 mg/dL High 7-18 [facility] Comment on above: Performed By: #### L 100.0100, L500.4050, L501.9520, L500.4100, L506.1000 ####[facility] [address] [place], [address] Eosinophil percentageOrdered By: Eh Huddleston on 10-01-2024 Eosinophils/100 WBC (Bld) 2.0 % 0-5 [facility] Erythrocyte distribution wid th ratioOrdered By: [facility] Erythrocyte distribution width (RBC) [Ratio] 13.2 % 11.6-14.6 [facility] Erythrocyte distribution wid th standard deviationOrdered By: [facility] on 10-01-2024 Erythrocyte distribution width (RBC) [Entitic vol] 46.2 fL High 35.1-43.9 [facility] Estimated glomerular filtrat ion rate (GFR) AmericanOrdered By: Eh Huddleston 10-01-2024 Estimated GFR (MDRD) Amer 76 mL/min >60 [facility] Comment on above: GFR Calc Glomerular filtration rate ( GFR) estimationOrdered By: Eh Huddleston 10-01-2024 Estimated GFR (MDRD) Non-Af Amer 63 mL/min >60 [facility] Comment on above: Non- GFR Calc Glucose measurementOrdered B y: [facility] 10-01-2024 Glucose [Mass/Vol] 103 mg/dL 74-106 [facility] Comment on above: Fasting Glucose resu lt from 100 to 125 mg/dL suggests IMPAIRED HOMEOSTASIS per A.D.A. criteria. Hematocrit Auto (Bld) [Volum e fraction]Ordered By: Eh Flaquito 10-01-2024 Hematocrit (Bld) [Volume fraction] 38.6 % 37-47 [facility] Hemoglobin measurementOrdere d By: [facility] 10-01-2024 Hemoglobin (Bld) [Mass/Vol] 12.6 g/dL 12.0-15.0 [facility] High density lipoprotein (HD L) measurementOrdered By: [facility] 10-01-2024 Cholesterol in HDL [Mass/Vol] 91 mg/dL >40 [facility] Comment on above: The drugs N-Acetylcy steine and Metamizole may falsely depress this assay. Reference Range HDL <40 mg/dL Low HDL Cholesterol HDL >or= 60 mg/dL High HDL Cholesterol Immature granulocytes/100 WB C Auto (Bld)Ordered By: Eh Huddleston on 10-01-2024 Immature granulocytes/100 WBC (Bld) 0.200 % 0.0-0.9 [facility] Comment on above: IG% - Immature Granu locytes (promyelocytes, myelocytes and metamyelocytes) > 1% indicates that a LEFT SHIFT is Present. Laboratory - Chemistry and C hemistry - challengeOrdered By: Eh Huddleston on 10-01-2024 AST [Catalytic activity/Vol] 44 U/L High 15-37 [facility] Lipid Profileon 10-01-2024 Cholesterol [Mass/Vol] 169 mg/dL Normal 200 [facility] Comment on above: Result Comment: <200 mg/dL Desirable 200-240 mg/dL Borderline >240 mg/dL High Risk Performed By: #### L 100.0100, L500.4050, L501.9520, L500.4100, L506.1000 ####[facility] [address] [place], [address] Cholesterol in HDL [Mass/Vol] 91 mg/dL Normal [facility] Comment on above: Result Comment: The drugs N-Acetylcysteine and Metamizole may falselydepress this assay. Reference Range HDL <40 mg/dL Low HDL Cholesterol HDL >or= 60 mg/dL High HDL Cholesterol Performed By: #### L 100.0100, L500.4050, L501.9520, L500.4100, L506.1000 ####[facility] [address] [place], [address] Cholesterol in LDL [Mass/Vol] 61 mg/dL Normal 0-130 [facility] Comment on above: Performed By: #### L 100.0100, L500.4050, L501.9520, L500.4100, L506.1000 ####[facility] [address] [place], [address] Cholesterol in VLDL [Mass/Vol] 17 mg/dL Normal 5-40 [facility] Comment on above: Performed By: #### L 100.0100, L500.4050, L501.9520, L500.4100, L506.1000 ####[facility] [address] [place], [address] Triglyceride [Mass/Vol] 87 mg/dL Normal [facility] Comment on above: Result Comment: The drugs N-Acetylcysteine and Metamizole may falselydepress this assay.Serum Triglycerides Reference Interval Normal <150 mg/dL Borderline high 150 - 199 mg/dL High 200 - 499 mg/dL Very High > or = 500 mg/dL Performed By: #### L 100.0100, L500.4050, L501.9520, L500.4100, L506.1000 ####[facility] [address] [place], [place], [address] Low density lipoprotein (LDL ) cholesterol measurementOrdered By: Eh Huddleston on 10-01-2024 Cholesterol in LDL [Mass/Vol] 61 mg/dL 0-130 [facility] Lymphocytes Auto (Unsp spec) [#/Vol]Ordered By: Eh Huddleston on 10-01-2024 Lymphocytes (Bld) [#/Vol] 1.61 10*3/uL 0.83-4.51 [facility] Lymphocytes/100 WBC Auto (Un sp spec)Ordered By: Eh Huddleston on 10-01-2024 Lymphocytes/100 WBC (Bld) 25.0 % 19-41 [facility] MCV (mean corpuscular volume ) determinationOrdered By: Eh Huddleston 10-01-2024 MCV (RBC) [Entitic vol] 94.6 fL 81-99 [facility] Mean corpuscular hemoglobin (MCH) determinationOrdered By: Eh Huddleston on 10-01-2024 MCH (RBC) [Entitic mass] 30.9 pg 27.0-32.0 [facility] Mean corpuscular hemoglobin concentration (MCHC) determinationOrdered By: Eh Huddleston on 10-01-2024 MCHC (RBC) [Mass/Vol] 32.6 g/dL 32-36 [facility] Mean platelet volume determi nationOrdered By: Eh Huddleston on 10-01-2024 Platelet mean volume (Bld) [Entitic vol] 10.6 fL 6.2-12.0 [facility] Monocyte percentageOrdered B y: Eh Huddleston on 10-01-2024 Monocytes/100 WBC (Bld) 6.8 % 0-10 [facility] Neutrophil percentageOrdered By: Eh Huddleston on 10-01-2024 Neutrophils/100 WBC (Bld) 65.5 % 47-70 [facility] Nucleated red blood cell per centageOrdered By: Eh Huddleston on 10-01-2024 Nucleated RBC/100 WBC (Bld) [Ratio] 0 % 0-5 [facility] Platelet countOrdered By: Collin Huddleston on 10-01-2024 Platelets (Bld) [#/Vol] 187 10*3/uL 150-450 [facility] Potassium measurementOrdered By: Eh Huddleston on 10-01-2024 Potassium [Moles/Vol] 4.4 mmol/L 3.5-5.1 [facility] RBC Auto (Bld) [#/Vol]Ordere d By: Eh Huddleston on 10-01-2024 RBC (Bld) [#/Vol] 4.08 10*6/uL Low 4.2-5.4 [facility] Serum anion gap measurementO rdered By: Eh Huddleston on 10-01-2024 Anion gap [Moles/Vol] 4 mmol/L Low 5-15 [facility] Serum globulin measurementOr dered By: Eh Huddleston 10-01-2024 Globulin (S) [Mass/Vol] 3.7 g/dL 2.2-4.2 [facility] Serum or plasma alanine woodall otransferase (ALT) measurementOrdered By: Eh Huddleston 10-01-2024 ALT [Catalytic activity/Vol] 15 U/L 13-56 [facility] Serum or plasma albumin susy urement (mass/volume)Ordered By: Eh Huddleston 10-01-2024 Albumin [Mass/Vol] 3.8 g/dL 3.2-5.0 [facility] Serum or plasma alkaline taisha sphatase measurementOrdered By: Eh Huddleston 10-01-2024 ALP [Catalytic activity/Vol] 67 U/L 45-117 [facility] Serum or plasma calcium susy urement (mass/volume)Ordered By: Eh Huddleston on 10-01-2024 Calcium [Mass/Vol] 9.4 mg/dL 8.5-10.1 [facility] Serum or plasma cholesterol measurement (mass/volume)Ordered By: Eh Huddleston on 10-01-2024 Cholesterol [Mass/Vol] 169 mg/dL <200 [facility] Comment on above: <200 mg/dL Desirable 200-240 mg/dL Borderline >240 mg/dL High Risk Serum or plasma creatinine m easurement (mass/volume)Ordered By: Eh Huddleston on 10-01-2024 Creatinine [Mass/Vol] 0.90 mg/dL 0.55-1.02 [facility] Comment on above: The validity of the calculated GFR & GFRAA in patients over 70 years has not been determined. Clinical correlation is essential. Serum or plasma urea nitroge n measurement (mass/volume)Ordered By: Eh Huddleston on 10-01-2024 Urea nitrogen [Mass/Vol] 20 mg/dL High 7-18 [facility] Sodium levelOrdered By: Eh Huddleston on 10-01-2024 Sodium [Moles/Vol] 139 mmol/L 136-145 [facility] TSH QnOrdered By: Eh Huddleston o n 10-01-2024 Thyroid Stimulating Hormone (TSH) 1.540 uIU/mL 0.358-3.74 0 [facility] Thyroid Stim Hormone (TSH)on 10-01-2024 TSH 1.540 uIU/mL Normal 0.358-3.74 0 [facility] Comment on above: Performed By: #### L 100.0100, L500.4050, L501.9520, L500.4100, L506.1000 ####[facility] [address] [place], [address] Total proteinOrdered By: Eh Huddleston on 10-01-2024 Protein [Mass/Vol] 7.5 g/dL 6.4-8.2 [facility] Triglycerides measurementOrd ered By: Eh Huddleston on 10-01-2024 Triglyceride [Mass/Vol] 87 mg/dL <199 [facility] Comment on above: The drugs N-Acetylcy steine and Metamizole may falsely depress this assay.Serum Triglycerides Reference Interval Normal <150 mg/dL Borderline high 150 - 199 mg/dL High 200 - 499 mg/dL Very High > or = 500 mg/dL Very low density lipoprotein (VLDL) cholesterol measurementOrdered By: Eh Huddleston on 10-01-2024 VLDL Cholesterol 17 mg/dL 5-40 [facility] Vitamin D,25 Hydroxyon 10-01 Vitamin D 25-OH 22.4 ng/mL Normal [facility] Comment on above: Result Comment: Shu min D 25(OH) Status Range Deficiency <20 ng/mL (50nmol/L) Insufficiency 20 - 30 ng/mL (50 - 75 nmol/L) Sufficiency 30 - 100 ng/mL (75 - 250 nmol/L) Toxicity >100 ng/mL (>250 nmol/L) Performed By: #### L 100.0100, L500.4050, L501.9520, L500.4100, L506.1000 ####[facility] [address] [place], [address] White blood cell (WBC) count Ordered By: Eh Huddleston on 10-01-2024 WBC (Bld) [#/Vol] 6.4 10*3/uL 4.4-11.0 [facility] 09-16-2024 GARETT Telephone (CARLENE) GOGO WARE ([id number]) 1940 F Date Time Provider Department 09/16/24 GREG NASH During your visit today, we recorded the following information about you: Greg Nash APRN.CNP 09/16/2024 8:31 AM Signed Allergies As of Date: 09/16/2024 (No Known Allergies) Date Reviewed: 09/03/2024 Reviewed by: Emi Loya RN - Fully Assessed Reason for Visit: Dental form [Other] Prescriptions as of 09/16/2024 - valsartan (DIOVAN) 160 mg tablet Take 0.5 tablets by mouth once daily. - moxifloxacin (VIGAMOX) 0.5 % ophthalmic solution Use 1 Drop in the left eye four times daily. - carvedilol (COREG) 12.5 mg tablet Take 1 tablet by mouth twice daily with meals. - atorvastatin (LIPITOR) 40 mg tablet Take 1 tablet by mouth once daily. - brimonidine (ALPHAGAN) 0.2 % ophthalmic solution Use 2 Drops in both eyes twice daily. - DORZOLAMIDE HCL/TIMOLOL MALEAT (DORZOLAMIDE-TIMOLOL OPHTHALMIC) Use 1 Drop in eyes twice daily. - aspirin, enteric coated (ASPIRIN, ENTERIC COATED) 81 mg EC tablet Take 81 mg by mouth once daily. - temazepam (RESTORIL) 30 mg cap Take 30 mg by mouth at bedtime as needed. - latanoprost (XALATAN) 0.005 % ophthalmic solution Use 1 Drop in both eyes daily at bedtime. Meds Comments as of 01/05/2013: PT STATES SHE USES ANOTHER DROP, GREEN TOP, AT NIGHT OU Problem List As Of Date 09/16/2024 Noted Resolved Mixed hyperlipidemia [E78.2] 02/26/2019 Essential (primary) hypertension [I10] 09/09/2017 Coronary artery disease involving [place] guo*04/07/2024 Insomnia [G47.00] 04/07/2024 Glaucoma [H40.9] 04/07/2024 Nonrheumatic aortic valve stenosis [I35.0] 04/07/2024 Encounter Status:Closed by GREG NASH on 09/16/24 [facility] CNCOon 09-14-2024 CNCO Letter Text Normal [facility] CNOVon 09-09-2024 CNOV Office Visit (CATHMN ) GOGO WARE ([id number]) 1940 F Date Time Provider Department 09/09/24 2:00 PM [facility] CATH[facility] During your visit today, we recorded the following information about you: Luba Llanes APRN.CNP 09/09/2024 5:00 PM Signed [facility] Department of Cardiovascular Medicine SECTION OF INTERVENTIONAL CARDIOLOGY OUTPATIENT VISIT DATE September 09, 2024 OUTPATIENT VISIT TYPE ESTABLISHED FOLLOW UP Primary Care Physician: Eh Huddleston Chi Chief Complaint: Patient is here today for cardiac evaluation follow up. History of Present Illness: Gogo Ware is a 84 year old female who presents for follow up visit today to discuss the evaluation process for aortic valve disease and treatment options which include TAVR. Gogo Ware was last seen by Dr. Wells and will be seeing Dr. Arteaga Gogo Ware is from [place] where she lives alone. Patient states that she has no symptoms. She has her washing machine in the basement and she states that she takes the steps slowly and holds the railings but has no difficulties. She does have glaucoma that does limit some of her travel. Denies chest pain, shortness of breath, palpitations, lightheadedness, syncope, and leg swelling CARDIOVASCULAR MEDICINE TESTING: Echocardiogram 08/31/2024 MITRAL VALVE There is mild mitral annular calcification observed posterior. There is mild (1+) mitral valve regurgitation. There is mild thickening. The pressure half time is 57 msec. The peak mitral E/A ratio is 0.92. The mitral flow deceleration time is 196 msec. TRICUSPID VALVE There is trace (trace - 1+) tricuspid valve regurgitation. There is no thickening. AORTIC VALVE There is severe aortic valve stenosis caused by calcified valve and restricted opening. There is trace aortic valve regurgitation. Tricuspid aortic valve. There is severe thickening. There is severe calcification. The peak gradient is 98 mmHg (peak velocity = 494.0 cm/s). The mean gradient is 61 mmHg. The LVOT mean velocity is 67.6 cm/s. The LVOT diameter is 1.8 cm. The aortic VTI is 150.0 cm. The mean velocity in the aortic valve is 368.6 cm/s. The dimensionless valve index is 0.17. AV area is 0.44 cm? (0.24 cm?/m?) by continuity, VTI. The LVOT stroke volume index is 36 ml/m?. PULMONIC VALVE There is trace pulmonic valve regurgitation. There is no thickening. AORTA The visualized aorta is normal in size. Measurements - Sinus: 2.5 cm. INTERATRIAL SEPTUM There is no evidence of intracardiac shunting as detected by Doppler. PERICARDIUM There is no pericardial effusion. There is an epicardial fat pad. - The left ventricle is normal in size. There is moderate septal left ventricular hypertrophy. Left ventricular systolic function is normal. EF = 60 ? 5% (2D biplane) Grade II left ventricular diastolic dysfunction. - The right ventricle is normal in size. Right ventricular systolic function is normal. Cardiac Catheterization 09/03/2024 LMT: The LMT has mild diffuse disease. Additional Comment: The LMT is a large caliber vessel with mild diffuse disease. LAD: The mid LAD is narrowed 70 % - focal disease. Additional Comment: The LAD is a large caliber vessel that wraps around the apex. There is a known moderate to severe lesion in the mid LAD which was previously interrogated in 2018 with iFR 0.84 at the time. This has midly progessed in angiographic appearance. LCX: The mid circumflex is narrowed 40 % - focal disease. Additional Comment: The LCx is a large caliber vessel. There are small OM branches. There is mild to moderate diffuse disease in the mid LCx. RAMUS: Ramus Status: Not Applicable. RCA: The mid RCA - moderate diffuse disease. Additional Comment: The RCA is a large caliber dominent vessel. There is known moderate ostial disease and modarete diffuse disease in the mid RCA. Impression: 1. Right dominant coronary system. 2. Severe stenosis in the LAD which is known to be hemodynamically signfiicant per iFR perforemd in 2018. 3. Diffuse moderate stenosis in the ostial and mid RCA. Recommended Treatment: Medical Therapy. Plan: 1. Medical management of coronary artery disease given lack of anginal symptoms. 2. Outpatient blood pressure follow up-- very elevated today but it was not as elevated recently in clinic (was 144/59 mmHg). 3. Will see CTS then will discuss at conference for next steps regarding consideration of AVR vs TAVR. CT Angiography 08/31/2024 MITRAL VALVE: assessment is limited in the current study - no leaflet calcification. Mild mitral annular calcification TRICUSPID and PULMONIC VALVE: appear unremarkable. CORONARY ANATOMY: normal origin of the coronary arteries. Diffuse, calcified atherosclerotic changes of the coronary art (more content not included)... Normal [facility] Office Visit ([facility] ) GOGO WARE ([id number]) 1940 F Date Time Provider Department 09/09/24 1:30 PM GENOVEVA ARTEAGA [facility] During your visit today, we recorded the following information about you: Genoveva Arteaga MD 09/09/2024 3:51 PM Signed Heart, V[facility] Template ID: [id number] SERVICE DATE: 09/09/2024 SERVICE TIME: 3:12 PM Patient Type: New Visit to determine Surgery: Yes HPI: Ms. Gogo Ware is a 84 year old female seen regarding candidacy for TAVR vs SAVR. She has h/o CAD (cath showing mid LAD lesion iFR 0.84 - patient did not want to proceed with PCI at the time and has been managed medically), critically severe (MG 57 in 04/20 -> 61). She is active and lives independently - denies any limiting symptoms but does note NAPIER w/ heavy exertion only. She denies CP or LH/dizziness. LHC demonstrating discrete LAD lesion as noted. TAVR CT does demonstrate scattered calcification around root and ascending aorta/arch as well as viscerals and extensive infrarenal atherosclerosis to iliac bifurcation. Noted small iliofemoral system. Impression: Critically severe, symptomatic ; FFR positive mid LAD lesion that has been managed medically Plan: Although patient is quite functional for her age, given age and fraility, she is high risk for SAVR + CABG. Additionally, extensive atherosclerotic burden with stroke risks. She would like TAVR if anatomically amenable and I think this is very appropriate for her. She would do better with expedited recovery and return to her activities. I do not think she is symptomatic from CAD perspective and relatively stable LAD lesion could continue to be treated medically or considered for PCI in the future. Review of TAVR CT and access per heart team and discussed with patient potential for alternative access if team deems necessary. I personally spent 30 minutes in total time involved in the management and care of this patient. SIGNATURE: Genoveva Arteaga MD PATIENT NAME: Gogo Ware DATE: September 09, 2024 TIME: 3:12 PM Allergies As of Date: 09/09/2024 (No Known Allergies) Date Reviewed: 09/03/2024 Reviewed by: Emi Loya RN - Fully Assessed Primary Visit Diagnosis:Nonrheumatic aortic valve stenosis [I35.0] Prescriptions as of 09/09/2024 - valsartan (DIOVAN) 160 mg tablet Take 0.5 tablets by mouth once daily. - moxifloxacin (VIGAMOX) 0.5 % ophthalmic solution Use 1 Drop in the left eye four times daily. - carvedilol (COREG) 12.5 mg tablet Take 1 tablet by mouth twice daily with meals. - atorvastatin (LIPITOR) 40 mg tablet Take 1 tablet by mouth once daily. - brimonidine (ALPHAGAN) 0.2 % ophthalmic solution Use 2 Drops in both eyes twice daily. - DORZOLAMIDE HCL/TIMOLOL MALEAT (DORZOLAMIDE-TIMOLOL OPHTHALMIC) Use 1 Drop in eyes twice daily. - aspirin, enteric coated (ASPIRIN, ENTERIC COATED) 81 mg EC tablet Take 81 mg by mouth once daily. - temazepam (RESTORIL) 30 mg cap Take 30 mg by mouth at bedtime as needed. - latanoprost (XALATAN) 0.005 % ophthalmic solution Use 1 Drop in both eyes daily at bedtime. Meds Comments as of 01/05/2013: PT STATES SHE USES ANOTHER DROP, GREEN TOP, AT NIGHT OU Problem List As Of Date 09/09/2024 Noted Resolved Mixed hyperlipidemia [E78.2] 02/26/2019 Essential (primary) hypertension [I10] 09/09/2017 Coronary artery disease involving [place] guo*04/07/2024 Insomnia [G47.00] 04/07/2024 Glaucoma [H40.9] 04/07/2024 Severe aortic stenosis by prior echocardiogram *04/07/2024 Level of Service: OFFICE/OUTPATIENT NEW LOW [facility] 30 MINUTES [37157] LOS History for Encounter Level of Service[facility]79717[facility] Date AND Time: 09-09-2024 3:51 PM Recorded by User: GENOVEVA ARTEAGA Encounter Status:Closed by GENOVEVA ARTEAGA on 09/09/24 Normal [facility] CARDIAC AMYLOID SPECT/field aide n 09-09-2024 CT CARDIAC AMYLOID SPECT/CT * * *Final Report* * * DATE OF EXAM: Sep 09 2024 3:40PM [facility] 0847 - CT CARDIAC AMYLOID SPECT/CT / PROCEDURE REASON: multiple diagnoses * * * * Physician Interpretation * * * * CT CTAC Report: [facility] Date of service: 09/09/2024 3:11:26 PM CTAC interpreting physician: Sydnee Harvey MD PATIENT: Name: MRS. GOGO WARE Age: 84 years Gender: F 1. Incidental Findings from limited non-diagnostic CTAC: - Coronary calcifications visualized. - Aortic valve leaflet calcifications visualized. Correlation with echocardiography suggested. * * * Final * * * Patient: Name: MRS. GOGO WARE Age: 84 years Gender: F CONCLUSIONS: 1. Not Consistent with TTR amyloidosis * Please note that a negative or mildly positive study does not exclude AL amyloid. In addition, equivocal results could represent AL amyloid or early ATTR. We suggest concomitant workup of AL amyloid with laboratory testing and pathologic assessment as appropriate. Nuclear Med Report: [id number] PLANAR and SPECT: Myocardial imaging of the chest with CT attenuation correction was performed at 3 hours post IV injection of Tc-99m Pyrophosphate. See administered doses below. [facility] Date of service: 09/09/2024 3:11:26 PM Ordering Physician: Requesting Physician: KACY Bañuelos (NAPPER GRINDER) TONY Indication: Suspected Amyloid Heart Disease Interpreting physician: Sydnee Harvey MD CT Dose-Length Product(DLP): 130.0 mGy * cm. CT Dose Reduction Employed: Yes. Exam Type: Rest Study Date: 09/09/2024 Radiopharm: 99m Technetium-HDP Dosage(mCi): 24.0 Injection Time: 11:10:00 AM Atten Correction: performed Time Interval: 3.0 hours Image Quality The overall study imaging quality was deemed to be good. CARDIAC FINDINGS: PLANAR: Visual Comparison to Bone: Grade 0 = No uptake and normal bone uptake (negative for ATTR) SPECT: Uptake Pattern: Absent NON CARDIAC FINDINGS: Summary: Not Consistent with TTR amyloidosis * Please note that a negative or mildly positive study does not exclude AL amyloid. In addition, equivocal results could represent AL amyloid or early ATTR. We suggest concomitant workup of AL amyloid with laboratory testing and pathologic assessment as appropriate. * * * Final * * * RP General Studies Program Chair: NIK Transcribe Date/Time: Sep 09 2024 3:11P Dictated by : SYDNEE HARVEY MD This examination was interpreted and the report reviewed and electronically signed by: SYDNEE HARVEY MD on Sep 09 2024 3:56PM EST [id number] Normal [facility] SPECT Heart for infarct W Tc -99m PYP Marifer 09-09-2024 * * *Final Report* * * DATE OF EXAM: Sep 09 2024 3:40PM [facility] 0847 - [place] CARDIAC AMYLOID SPECT/CT / PROCEDURE REASON: multiple diagnoses * * * * Physician Interpretation * * * * NM CTAC Report: [facility] Date of service: 09/09/2024 3:11:26 PM CTAC interpreting physician: Sydnee Harvey MD PATIENT: Name: MRS. GOGO WARE Age: 84 years Gender: F 1. Incidental Findings from limited non-diagnostic CTAC: - Coronary calcifications visualized. - Aortic valve leaflet calcifications visualized. Correlation with echocardiography suggested. * * * Final * * * Patient: Name: MRS. GOGO WARE Age: 84 years Gender: F CONCLUSIONS: 1. Not Consistent with TTR amyloidosis * Please note that a negative or mildly positive study does not exclude AL amyloid. In addition, equivocal results could represent AL amyloid or early ATTR. We suggest concomitant workup of AL amyloid with laboratory testing and pathologic assessment as appropriate. Nuclear Med Report: [id number] PLANAR and SPECT: Myocardial imaging of the chest with CT attenuation correction was performed at 3 hours post IV injection of Tc-99m Pyrophosphate. See administered doses below. [facility] Date of service: 09/09/2024 3:11:26 PM Ordering Physician: Requesting Physician: KACY Bañuelos (NAPPER GRINDER) TONY Indication: Suspected Amyloid Heart Disease Interpreting physician: Sydnee Harvey MD CT Dose-Length Product(DLP): 130.0 mGy * cm. CT Dose Reduction Employed: Yes. Exam Type: Rest Study Date: 09/09/2024 Radiopharm: 99m Technetium-HDP Dosage(mCi): 24.0 Injection Time: 11:10:00 AM Atten Correction: performed Time Interval: 3.0 hours Image Quality The overall study imaging quality was deemed to be good. CARDIAC FINDINGS: PLANAR: Visual Comparison to Bone: Grade 0 = No uptake and normal bone uptake (negative for ATTR) SPECT: Uptake Pattern: Absent NON CARDIAC FINDINGS: Summary: Not Consistent with TTR amyloidosis * Please note that a negative or mildly positive study does not exclude AL amyloid. In addition, equivocal results could represent AL amyloid or early ATTR. We suggest concomitant workup of AL amyloid with laboratory testing and pathologic assessment as appropriate. * * * Final * * * RP General Studies Program Chair: NIK Transcribe Date/Time: Sep 09 2024 3:11P Dictated by : SYDNEE HARVEY MD This examination was interpreted and the report reviewed and electronically signed by: SYDNEE HARVEY MD on Sep 09 2024 3:56PM [facility] Provider, [facility] - 09/09/2024 * * *Final Report* * * DATE OF EXAM: Sep 09 2024 3:40PM [facility] 0847 - CT CARDIAC AMYLOID SPECT/CT / PROCEDURE REASON: multiple diagnoses * * * * Physician Interpretation * * * * NM CTAC Report: [facility] Date of service: 09/09/2024 3:11:26 PM CTAC interpreting physician: Sydnee Harvey MD PATIENT: Name: MRS. GOGO WARE Age: 84 years Gender: F 1. Incidental Findings from limited non-diagnostic CTAC: - Coronary calcifications visualized. - Aortic valve leaflet calcifications visualized. Correlation with echocardiography suggested. * * * Final * * * Patient: Name: MRS. GOGO WARE Age: 84 years Gender: F CONCLUSIONS: 1. Not Consistent with TTR amyloidosis * Please note that a negative or mildly positive study does not exclude AL amyloid. In addition, equivocal results could represent AL amyloid or early ATTR. We suggest concomitant workup of AL amyloid with laboratory testing and pathologic assessment as appropriate. Nuclear Med Report: [id number] PLANAR and SPECT: Myocardial imaging of the chest with CT attenuation correction was performed at 3 hours post IV injection of Tc-99m Pyrophosphate. See administered doses below. [facility] Date of service: 09/09/2024 3:11:26 PM Ordering Physician: Requesting Physician: KACY RenaeNAPPER GRINDER) TONY Indication: Suspected Amyloid Heart Disease Interpreting physician: Sydnee Harvey MD CT Dose-Length Product(DLP): 130.0 mGy * cm. CT Dose Reduction Employed: Yes. Exam Type: Rest Study Date: 09/09/2024 Radiopharm: 99m Technetium-HDP Dosage(mCi): 24.0 Injection Time: 11:10:00 AM Atten Correction: performed Time Interval: 3.0 hours Image Quality The overall study imaging quality was deemed to be good. CARDIAC FINDINGS: PLANAR: Visual Comparison to Bone: Grade 0 = No uptake and normal bone uptake (negative for ATTR) SPECT: Uptake Pattern: Absent NON CARDIAC FINDINGS: Summary: Not Consistent with TTR amyloidosis * Please note that a negative or mildly positive study does not exclude AL amyloid. In addition, equivocal results could represent AL amyloid or early ATTR. We suggest concomitant workup of AL amyloid with laboratory testing and pathologic assessment as appropriate. * * * Final * * * RP General Studies Program Chair: NIK Transcribe Date/Time: Sep 09 2024 3:11P Dictated by : SYDNEE HARVEY MD This examination was interpreted and the report reviewed and electronically signed by: SYDNEE HARVEY MD on Sep 09 2024 3:56PM EST [facility] Radiology Study observation (narrative) [facility] SPECT Heart for infarct W Tc -99m PYP IVOrdered By: [facility] Provider on 09-09-2024 [facility] CARD CATH DIAGNOSTICon 09-03 CARD CATH DIAGNOSTIC Site Id: [id number] Lab #: [id number] HVI Sales Support Assistant 4 Study Date: 09/03/2024 Start Time: 09/03/2024 5:42:57 PM End Time: 09/03/2024 6:20:53 PM Physician Name Odilon Wells M.D., Seth M.D. Nursing/Octavio Abdul R.N., C R.N. Lynch, J R.N. + + PATIENT INFORMATION + + Name: MRS. GOGO WARE : 1940 Age: 84 years Gender: F Height: 65 in / 165 cm Weight: 163.58 lb / 74.20 kg BMI: 27.22 kg/m BSA: 1.82 m + --+ CLINICAL HISTORY/INDICATION(s) + --+ Preoperative assessment before valvular surgery; AUC score = 7. CAD Presentation: No Symptoms, No Angina Angina Classification (within 2 weeks): No Angina Anti-Angina Meds (within 2 weeks): No. No Heart Failure No Cardiomyopathy - No LV Dysfunction Pre-Op Evaluation before Non-Card Surg: No Cardiogenic Shock: No Cardiac Arrest: No Mr. Ware is an 84 year old female with history of CAD (2018 LHC showed moderate RCA disease with iFR 0.96 and LAD disease with iFR 0.84 but she opted for no intervention to the LAD). She additionally has symptomatic severe , HFpEF, HTN, HLD and is undergoing diagnostic LHC for TAVR evaluation. Access Point Sheath Size Hemostasis Method Right Radial Artery 5F Short Radial TR band + + DIAGNOSTIC FINDINGS + + Coronary Anatomy: Right Dominant Injection Site(s): Coronary Artery LMT: The LMT has mild diffuse disease. Additional Comment: The LMT is a large caliber vessel with mild diffuse disease. LAD: The mid LAD is narrowed 70 % - focal disease. Additional Comment: The LAD is a large caliber vessel that wraps around the apex. There is a known moderate to severe lesion in the mid LAD which was previously interrogated in 2018 with iFR 0.84 at the time. This has midly progessed in angiographic appearance. LCX: The mid circumflex is narrowed 40 % - focal disease. Additional Comment: The LCx is a large caliber vessel. There are small OM branches. There is mild to moderate diffuse disease in the mid LCx. RAMUS: Ramus Status: Not Applicable. RCA: The mid RCA - moderate diffuse disease. Additional Comment: The RCA is a large caliber dominent vessel. There is known moderate ostial disease and modarete diffuse disease in the mid RCA. +-------+ IMAGING +-------+ Intravascular imaging not performed. + + HEMODYNAMIC INTERROGATION + + Hemodynamic interrogation not performed. + + HEMODYNAMICS + + + + IMPRESSION/PLAN + + Impression: 1. Right dominant coronary system. 2. Severe stenosis in the LAD which is known to be hemodynamically signfiicant per iFR xavier in 2018. 3. Diffuse moderate stenosis in the ostial and mid RCA. Recommended Treatment: Medical Therapy. Plan: 1. Medical management of coronary artery disease given lack of anginal symptoms. 2. Outpatient blood pressure follow up-- very elevated today but it was not as elevated recently in clinic (was 144/59 mmHg). 3. Will see CTS then will discuss at conference for next steps regarding consideration of AVR vs TAVR. + ------+ ADVERSE OUTCOME(s)/COMPLICATION(s) + ------+ None + --+ PROCEDURAL & TECHNICAL DETAILS + --+ Status Category Description Used Catheter, Diagnostic Imaging - 5Fr x 110cm Optitorque Coronary Angiographic Diagnostic Catheter, [place] Radial TIG 4.0, 1 side hole, 0.038in max guidewire PROCEDURE SEQUENCE: Time Procedure Performed 09/03/2024 5:57:50 PM Left Heart Cath PROCEDURE DETAILS: Contrast: Contrast Type Total Infused Omnipaque 150ml 45 Blood Loss: < 30ml Specimen: No Specimen Obtained RADIATION: Procedure performed under Fluoroscopic Guidance Total Dose Dose Area Product Total Exposure Time 266.26 mGy 13.15 Gy*cm 274.18 sec + + MEDICAL HISTORY + + Left Ventricle EF: LVEF 60, last assessed on 08/31/2024, by Echo. Physician Intra Service Procedure Start Time: 09/03/2024 5:51:58 PM Physician Intra Service Procedure End Time: 09/03/2024 6:20:53 PM Attending Physician Presence Attestation: Entire Procedure Electronically submitted by: Odilon Wells MD On: 09/04/2024 at 6:44:50 PM Final [employer] Medical Image : [id number] See Link below for Image [facility] GOGO WARE ([id number]) 1940 F Date Time Provider Department 09/02/24 ODILON WELLS During your visit today, we recorded the following information about you: Trinity Dawkins, RN 09/02/2024 1:25 PM Signed CARDIOVASCULAR LAB INSTRUCTIONS: Readiness to Learn: Cognitive Ability: Alert and oriented Motivation To Learn: Interested Family/Significant Other Support: Unable to assess - Family not present Instruction Provided To: Patient Patient Learns Best By: Verbal Instruction Factors Affecting Learning: None Physical Limitations Affecting Learning: None Learning Response: Procedure: Left Heart Diagnostic Pre procedure education topics: Arrival time/NPO Status/Medications/Travel Instructions/Restrictions Patient/Family Response Evaluation: Verbalizes understanding Follow Up Plan and Medication: As directed by physician Instruction/Supplemental Material Given: Cardiac catheterization instructions, procedure information, hospital information, hotel information. Instructed By Trinity Dawkins, RN, RN. In Department of CARDIOLOGY. Allergies As of Date: 09/02/2024 (No Known Allergies) Date Reviewed: 08/31/2024 Reviewed by: Live Escalante RT(R) - Fully Assessed Reason for Visit: Patient Education [91] Prescriptions as of 09/02/2024 - valsartan (DIOVAN) 160 mg tablet Take 0.5 tablets by mouth once daily. - moxifloxacin (VIGAMOX) 0.5 % ophthalmic solution Use 1 Drop in the left eye four times daily. - carvedilol (COREG) 12.5 mg tablet Take 1 tablet by mouth twice daily with meals. - atorvastatin (LIPITOR) 40 mg tablet Take 1 tablet by mouth once daily. - brimonidine (ALPHAGAN) 0.2 % ophthalmic solution Use 2 Drops in both eyes twice daily. - DORZOLAMIDE HCL/TIMOLOL MALEAT (DORZOLAMIDE-TIMOLOL OPHTHALMIC) Use 1 Drop in eyes twice daily. - aspirin, enteric coated (ASPIRIN, ENTERIC COATED) 81 mg EC tablet Take 81 mg by mouth once daily. - temazepam (RESTORIL) 30 mg cap Take 30 mg by mouth at bedtime as needed. - latanoprost (XALATAN) 0.005 % ophthalmic solution Use 1 Drop in both eyes daily at bedtime. Meds Comments as of 01/05/2013: PT STATES SHE USES ANOTHER DROP, GREEN TOP, AT NIGHT OU Problem List As Of Date 09/02/2024 Noted Resolved Mixed hyperlipidemia [E78.2] 02/26/2019 Essential (primary) hypertension [I10] 09/09/2017 Coronary artery disease involving [place] guo*04/07/2024 Insomnia [G47.00] 04/07/2024 Glaucoma [H40.9] 04/07/2024 Severe aortic stenosis by prior echocardiogram *04/07/2024 Encounter Status:Closed by TRINITY DAWKINS RN on 09/02/24 Normal [facility] CBC W Auto Differential pane l (Bld)on 08-31-2024 Basophils (Bld) [#/Vol] 10*3/uL Normal <0.11 [facility] Comment on above: Order Comment: Speci men Type: BLOOD SPECIMENOrdering Facility: [facility] Address: [address] [place] [address] Performed By: #### 5 7021-8 ####[facility] LABCLIA [id number] [place] [address] [place] Basophils/100 WBC (Bld) 0.3 % Normal [facility] Comment on above: Order Comment: Speci men Type: BLOOD SPECIMENOrdering Facility: [facility] Address: [address] [place] [address] Performed By: #### 5 7021-8 ####[facility] LABCLIA [id number] [place] [address] [place] Differential cell count method Nom (Bld) Auto Normal [facility] Comment on above: Order Comment: Speci men Type: BLOOD SPECIMENOrdering Facility: [facility] Address: [address] [place] [address] Performed By: #### 5 7021-8 ####[facility] LABCLIA [id number] [place] [address] [place] Eosinophils (Bld) [#/Vol] 0.11 10*3/uL Normal <0.46 [facility] Comment on above: Order Comment: Speci men Type: BLOOD SPECIMENOrdering Facility: [facility] Address: [address] [place] [address] Performed By: #### 5 7021-8 ####[facility] LABCLIA [id number] [place] [address] [place] Eosinophils/100 WBC (Bld) 1.7 % Normal [facility] Comment on above: Order Comment: Speci men Type: BLOOD SPECIMENOrdering Facility: [facility] Address: [address] [place] [address] Performed By: #### 5 7021-8 ####[facility] LABCLIA [id number] [place] [address] [place] Erythrocyte distribution width (RBC) [Ratio] 13.3 % Normal 11.5-15.0 [facility] Comment on above: Order Comment: Speci men Type: BLOOD SPECIMENOrdering Facility: [facility] Address: [address] [place] [address] Performed By: #### 5 7021-8 ####[facility] LABCLIA [id number] [place] [address] [place] Hematocrit (Bld) [Volume fraction] 38.1 % Normal 36.0-46.0 [facility] Comment on above: Order Comment: Speci men Type: BLOOD SPECIMENOrdering Facility: [facility] Address: [address] [place] [address] Performed By: #### 5 7021-8 ####[facility] LABIA [id number] [place] [address] [place] Hemoglobin (Bld) [Mass/Vol] 12.5 g/dL Normal 11.5-15.5 [facility] Comment on above: Order Comment: Speci men Type: BLOOD SPECIMENOrdering Facility: [facility] Address: [address] [place] [address] Performed By: #### 5 7021-8 ####[facility] LABIA [id number] [place] [address] [place] Immature granulocytes (Bld) [#/Vol] 10*3/uL Normal <0.10 [facility] Comment on above: Order Comment: Speci men Type: BLOOD SPECIMENOrdering Facility: [facility] Address: [address] [place] [address] Performed By: #### 5 7021-8 ####[facility] LABIA [id number] [place] [address] [place] Immature granulocytes/100 WBC (Bld) 0.2 % Normal [facility] Comment on above: Order Comment: Speci men Type: BLOOD SPECIMENOrdering Facility: [facility] Address: [address] [place] [address] Performed By: #### 5 7021-8 ####[facility] LABCLIA [id number] [place] [address] [place] Lymphocytes (Bld) [#/Vol] 1.90 10*3/uL Normal 1.00-4.00 [facility] Comment on above: Order Comment: Speci men Type: BLOOD SPECIMENOrdering Facility: [facility] Address: [address] [place] [address] Performed By: #### 5 7021-8 ####[facility] LABCLIA [id number] [place] [address] [place] Lymphocytes/100 WBC (Bld) 30.2 % Normal [facility] Comment on above: Order Comment: Speci men Type: BLOOD SPECIMENOrdering Facility: [facility] Address: [address] [place] [address] Performed By: #### 5 7021-8 ####[facility] LABCLIA [id number] [place] [address] [place] MCH (RBC) [Entitic mass] 31.1 pg Normal 26.0-34.0 [facility] Comment on above: Order Comment: Speci men Type: BLOOD SPECIMENOrdering Facility: [facility] Address: [address] [place] [address] Performed By: #### 5 7021-8 ####[facility] LABCLIA [id number] [place] [address] [place] MCHC (RBC) [Mass/Vol] 32.8 g/dL Normal 30.5-36.0 [facility] Comment on above: Order Comment: Speci men Type: BLOOD SPECIMENOrdering Facility: [facility] Address: [address] [place] [address] Performed By: #### 5 7021-8 ####[facility] LABCLIA [id number] [place] [address] [place] MCV (RBC) [Entitic vol] 94.8 fL Normal 80.0-100.0 [facility] Comment on above: Order Comment: Speci men Type: BLOOD SPECIMENOrdering Facility: [facility] Address: [address] [place] [address] Performed By: #### 5 7021-8 ####[facility] LABCLIA [id number] [place] [address] [place] Monocytes (Bld) [#/Vol] 0.54 10*3/uL Normal <0.87 [facility] Comment on above: Order Comment: Speci men Type: BLOOD SPECIMENOrdering Facility: [facility] Address: [address] [place] [address] Performed By: #### 5 7021-8 ####[facility] LABCLIA [id number] [place] [address] [place] Monocytes/100 WBC (Bld) 8.6 % Normal [facility] Comment on above: Order Comment: Speci men Type: BLOOD SPECIMENOrdering Facility: [facility] Address: [address] [place] [address] Performed By: #### 5 7021-8 ####[facility] LABCLIA [id number] [place] [address] [place] Neutrophils (Bld) [#/Vol] 3.72 10*3/uL Normal 1.45-7.50 [facility] Comment on above: Order Comment: Speci men Type: BLOOD SPECIMENOrdering Facility: [facility] Address: [address] [place] [address] Performed By: #### 5 7021-8 ####[facility] LABCLIA [id number] [place] [address] [place] Neutrophils/100 WBC (Bld) 59.0 % Normal [facility] Comment on above: Order Comment: Speci men Type: BLOOD SPECIMENOrdering Facility: [facility] Address: [address] [place] [address] Performed By: #### 5 7021-8 ####[facility] LABCLIA [id number] [place] [address] [place] Nucleated RBC (Bld) [#/Vol] 10*3/uL Normal <0.01 [facility] Comment on above: Order Comment: Speci men Type: BLOOD SPECIMENOrdering Facility: [facility] Address: [address] [place] [address] Performed By: #### 5 7021-8 ####[facility] LABCLIA [id number] [place] [address] [place] Nucleated RBC/100 WBC (Bld) [Ratio] 0.0 /100 WBC Normal [facility] Comment on above: Order Comment: Speci men Type: BLOOD SPECIMENOrdering Facility: [facility] Address: [address] [place] [address] Performed By: #### 5 7021-8 ####[facility] LABIA [id number] [place] [address] [place] Platelet mean volume (Bld) [Entitic vol] 10.8 fL Normal 9.0-12.7 [facility] Comment on above: Order Comment: Speci men Type: BLOOD SPECIMENOrdering Facility: [facility] Address: [address] [place] [address] Performed By: #### 5 7021-8 ####[facility] LABCLIA [id number] [place] [address] [place] Platelets (Bld) [#/Vol] 157 10*3/uL Normal 150-400 [facility] Comment on above: Order Comment: Speci men Type: BLOOD SPECIMENOrdering Facility: [facility] Address: [address] [place] [address] Performed By: #### 5 7021-8 ####[facility] LABCLIA [id number] [place] [address] [place] RBC (Bld) [#/Vol] 4.02 10*6/uL Normal 3.90-5.20 [facility] Comment on above: Order Comment: Speci men Type: BLOOD SPECIMENOrdering Facility: [facility] Address: [address] [place] [address] Performed By: #### 5 7021-8 ####[facility] LABCLIA [id number] [place] [address] [place] WBC (Bld) [#/Vol] 6.30 10*3/uL Normal 3.70-11.00 [facility] Comment on above: Order Comment: Speci men Type: BLOOD SPECIMENOrdering Facility: [facility] Address: [address] [place] [address] Performed By: #### 5 7021-8 ####[facility] LABCLIA [id number] [address] [place] CNOVon 08-31-2024 CNOV Office Visit (CATHMN ) GOGO WARE ([id number]) 1940 F Date Time Provider Department 08/31/24 9:45 AM ODILON WELLS During your visit today, we recorded the following information about you: Pulse Respiration Blood pressure Weight 65/minute 18/minute 144/59 74.2 kg Height 1.651 m Odilon Wells MD 08/31/2024 10:20 AM Signed [facility] Department of Cardiovascular Medicine SECTION OF INTERVENTIONAL CARDIOLOGY OUTPATIENT VISIT DATE August 31, 2024 OUTPATIENT VISIT TYPE NEW PRIMARY CARE PHYSICIAN: Berta Rankin [address] [id number] REFERRING PHYSICIAN: James Lindo MD, PhD, [facility] Staff, Section of Cardiovascular Imaging Department of Cardiovascular Medicine [facility] CHIEF COMPLAINT: TAVR evaluation HISTORY OF PRESENT ILLNESS: Ms. Ware is a 84 year old female from [place] who presents today for TAVR evaluation. She has a history significant for -CAD (cath in 2018 showing moderate RCA and LAD disease, RCA iFR 0.96 and LAD iFR was abnormal at 0.84 (patient opted not to proceed with PCI of mid LAD, hence being medically managed)) -Severe aortic stenosis (ECHO 04/15/24 showing pk/mn 99/57, EFFIE 0.45 cm2) -HFpEF (EF 64%) -HTN, HLD -Glaucoma (left eye completely blind) She lives in [facility], and she is very functionally active. She lives by herself. She is able to do all the activities independently. She mentions her only symptoms is shortness of breath when she walks up the hill and that has been present for a year. She denies SOB at rest or with minimal exertion. She denies chest pain, dizziness, lightheadedness or palpitations. She was seen by Dr. Lindo in clinic 04/28/24 and was referred here for TAVR evaluation. Her ECHO performed 04/15/24 showed severe with pk/mn 99/57, EFFIE 0.45 cm2, DVI 0.17 and preserved EF. Her NT pro BNP resulted at 1500. Her daughter lives in [place] and rest of her family in [facility]. PAST MEDICAL HISTORY Diagnosis Date Aortic valve stenosis CAD (coronary artery disease) Disease PROBLEM SLEEPING Essential hypertension Glaucoma HTN (hypertension) Mixed hyperlipidemia PAST SURGICAL HISTORY Procedure Laterality Date PROCEDURE 2006 BOTH HIPS REPLACED PROCEDURE 10/28/2009 LASER OU FOR GLAUCOMA REMV CATARACT EXTRACAP,INSERT LENS Left 04/20/2024 Social History Tobacco Use Smoking status: Never Smokeless tobacco: Never Vaping Use Vaping status: Never Used Substance Use Topics Alcohol use: Never Drug use: Never FAMILY HISTORY Problem Relation Age of Onset Glaucoma Father Diabetes Father Coronary Artery Disease Sister Colon Cancer Maternal Grandmother Stroke Maternal Grandfather Blindness Other GREAT AUNT Colon Cancer Other ALLERGIES No Known Allergies MEDICATIONS: valsartan (DIOVAN) 160 mg tablet Take 0.5 tablets by mouth once daily. carvedilol (COREG) 12.5 mg tablet Take 1 tablet by mouth twice daily with meals. atorvastatin (LIPITOR) 40 mg tablet Take 1 tablet by mouth once daily. brimonidine (ALPHAGAN) 0.2 % ophthalmic solution Use 2 Drops in both eyes twice daily. DORZOLAMIDE HCL/TIMOLOL MALEAT (DORZOLAMIDE-TIMOLOL OPHTHALMIC) Use 1 Drop in eyes twice daily. aspirin, enteric coated (ASPIRIN, ENTERIC COATED) 81 mg EC tablet Take 81 mg by mouth once daily. temazepam (RESTORIL) 30 mg cap Take 30 mg by mouth at bedtime as needed. latanoprost (XALATAN) 0.005 % ophthalmic solution Use 1 Drop in both eyes daily at bedtime. moxifloxacin (VIGAMOX) 0.5 % ophthalmic solution Use 1 Drop in the left eye four times daily. (Patient not taking: Reported on 05/26/2024) REVIEW OF SYSTEMS: GENERAL: Weight loss or gain, Fever or Chills, Weakness and Sleep difficulties. HEENT: Headache, Glasses/Contacts, Eye pain, Impaired Vision, Trouble/Decreased Hearing, Ringing in Ears, Nosebleeds, Dental Problems, Bleeding Gums, Dentures NECK: Swelling, Pain, Stiffness RESPIRATORY: Cough, Blood in Sputum, Shortness of breath, Wheezing, Asthma, Sleep Apnea SKIN: Rashes, Itching GASTROINTESTINAL: Trouble swallowing, Heartburn, Change in bowel habits, Blood in stool, Dark black stools MUSCULOSKELETAL: Muscle or joint pain, Stiffness , Joint swelling NEUROLOGIC/PSYCHIATRIC: Weakness, Paralysis, Numbness, Tingling, Tremor, Nervousness, Anxiety, Depressed mood, Memory loss HEMATOLOGICAL/LYMPHATIC: Easy bruising , Easy bleeding ENDOCRINE: Heat or cold intolerance, Excessive sweating, Frequent urination, Frequent thirst PHYSICAL EXAMINATION: BP 144/59 Pulse 65 Resp 18 Ht 5' 5" (1.65m) Wt 163 lb 9.6 oz (74.2kg) SpO2 98[RA]% BMI 27.22 kg/(m2). General: Well appearing, in no acute distress. Skin: No clubbing, no cyanosis. Eyes: Extra ocular movements intact Oropharynx: T (more content not included)... Normal [facility] CREATININE, BLOOD (POC)on Creatinine [Mass/Vol] 0.80 mg/dL 0.7 - 1.4 mg/dL [facility] eGFR (POCT) mL/min/1.7 3 m2 [facility] Location:Radiology [facility], [address] [place] [address], [address] [place] [address] POINT OF CARE [facility] CTA C/A/P (GATED) W IVCONon 08-31-2024 CTA C/A/P (GATED) W IVCON * * *Final Report* * * DATE OF EXAM: Aug 31 2024 12:44PM [facility] [address] - CTA C/A/P (GATED) W IVCON / PROCEDURE REASON: multiple diagnoses * * * * Physician Interpretation * * * * CTA Aorta chest, abdomen and pelvis Direct Image Comparison: None HISTORY: 84 years y/o Female with chronic h/o aortic valve stenosis. Evaluation for further treatment options, including surgical and transcatheter interventional treatment. There is request to define thoracic and aortic anatomy. Additional request to define details aortic annulus and root anatomy including dynamic assessment TECHNIQUE: SCANNER: Multi-detector scanner PROTOCOL: Spiral imaging of the heart with retrospective gating with sub-millimeter slice reconstruction throughout the cardiac cycle for dynamic 4-D assessment, following intravenous contrast administration. Additional single-phase, non-gated spiral imaging of the chest/abdomen/pelvis without additional contrast administration. Scan Range: thoracic inlet through the ischial tuberosities CT Dose-Length Product (DLP): 1001 mGy*cm CT Dose Reduction Employed: Automated exposure control(AEC) and iterative recon CONTRAST: IV administration of 60 ml Omnipaque 350 Scan acquisition: uncomplicated Macro Version: [id number] For optimization of anatomic evaluation, advanced 3-D off-line postprocessing was performed on a dedicated workstation by the interpreting physician. STUDY LIMITATIONS: Limited contrast enhancement of the aorta except for the level of the heart.. RESULT: LINES, TUBES and DEVICES: None CHEST: Chest wall anatomy: unremarkable. Coarse calcifications bilateral breast LUNGS: bibasilar atelectasis. MEDIASTINUM: small mediastinal lymph nodes, which are not pathologic by size criteria. Small hiatal hernia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 PERICARDIUM: unremarkable CENTRAL PULMONARY ARTERY: normal dimensions. Assessment is limited due to limited contrast enhancement. CARDIAC CHAMBERS: LEFT VENTRICLE: normal size with normal systolic function RIGHT VENTRICLE: normal size and normal function on qualitative assessment. Left Atrium: normal size. ANNE MARIE: normal. Right Atrium: normal size CENTRAL VENOUS and PULMONARY VENOUS RETURN: normal. Coronary Sinus: normal size MITRAL VALVE: assessment is limited in the current study - no leaflet calcification. Mild mitral annular calcification TRICUSPID and PULMONIC VALVE: appear unremarkable. CORONARY ANATOMY: normal origin of the coronary arteries. Diffuse, calcified atherosclerotic changes of the coronary arteries, precluding precise assessment with CT. AORTIC ANNULUS: no calcification -max. and min. Diameter: 2.2 x 2.0 cm, AREA: 3.2 cm2, Circumference: 6.4 cm AORTIC VALVE: appears trileaflet. Severe leaflet calcification. - AV calcium score 2353 AU (threshold 160 HU, Score likely underestimated relative to standard threshold of 130 HU) - significant restriction of valve opening with star-shaped systolic opening area consistent with likely severe aortic stenosis. Coronary Height/distance to annulus: Left Main: 13 mm, RCA: 14 mm. AORTA: Pathology: No acute aortic pathology. Intervention: None Complications: n/a Aortic Size: Normal size thoracic and abdominal aorta. STJ: maintained. Wall Changes: scattered moderate partially calcified wall changes. Eccentric noncalcified plaque/thrombus mid descending Moderate to severe partially calcified wall changes infrarenal abdominal aorta. Arch Branch Vessels: Patent, normal size proximal segments of the arch branch vessels, with mild partially calcified wall changes. Visceral Branch Vessels: Patent, normal size proximal segments of the visceral branch vessels and renal arteries, with moderate proximal partially calcified wall changes. Iliac Arteries: Patent, normal size iliac arteries, with mild partially calcified wall changes. AORTIC DIMENSIONS: AORTIC ROOT: 3.0 cm measured [id number] STJ: 2.5 cm mid ASCENDING THORACIC AORTA: 3.7 cm mid AORTIC ARCH: 2.7 cm mid DESCENDING THORACIC AORTA: 2.7 cm JUXTARENAL ABDOMINAL AORTA (level of SMA): 2.1 cm mid INFRARENAL ABDOMINAL AORTA: 1.8 cm , focal mild eccentric dilatation Diameter Left and Right Common Iliac Arteries minimal luminal diameter: 7 / 7 mm respectively Diameter Left and Right External Iliac Arteries minimal luminal diameter: 6 / 6 mm respectively ABDOMEN Gallbladder: Gallstones within the gallbladder. Liver: cystic lesions. Spleen: unremarkable. Adrenal glands: unremarkable. Pancreas: unremarkable. Kidneys: cystic lesions. Bowel: appears unremarkable within limitations of non-GI contrast examination. PELVIS: Bladder: unremarkable. BONES and SOFT TISSUES: degenerative changes of the thoracic and lumbar spine.Bilateral hip arthroplasty Manager Rail (topogram) images: No additional findings. IMPRESSION: Normal Thoracic and Abdominal Aor (more content not included)... Normal [facility] CTA Chest vessels and Abdomi nal vessels and Pelvis vessels W contrast Marifer 08-31-2024 IMPRESSION: Normal Thoracic and Abdominal Aortic Anatomy. Atherosclerotic changes as in the body of the report. Minimum luminal diameter throughout: 6 mm. Aortic Annulus Anatomy as described above. 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 General Studies Program Chair: [facility] Transcribe Date/Time: Aug 31 2024 1:26P Dictated by : IRENE GILMORE MD This examination was interpreted and the report reviewed and electronically signed by: IRENE GILMORE MD on Aug 31 2024 2:01PM [facility] OF RADIOLOG[facility] * * *Final Report* * * DATE OF EXAM: Aug 31 2024 12:44PM [facility] 0133 - CTA C/A/P (GATED) W IVCON / PROCEDURE REASON: multiple diagnoses * * * * Physician Interpretation * * * * CTA Aorta chest, abdomen and pelvis Direct Image Comparison: None HISTORY: 84 years y/o Female with chronic h/o aortic valve stenosis. Evaluation for further treatment options, including surgical and transcatheter interventional treatment. There is request to define thoracic and aortic anatomy. Additional request to define details aortic annulus and root anatomy including dynamic assessment TECHNIQUE: SCANNER: Multi-detector scanner PROTOCOL: Spiral imaging of the heart with retrospective gating with sub-millimeter slice reconstruction throughout the cardiac cycle for dynamic 4-D assessment, following intravenous contrast administration. Additional single-phase, non-gated spiral imaging of the chest/abdomen/pelvis without additional contrast administration. Scan Range: thoracic inlet through the ischial tuberosities CT Dose-Length Product (DLP): 1001 mGy*cm CT Dose Reduction Employed: Automated exposure control(AEC) and iterative recon CONTRAST: IV administration of 60 ml Omnipaque 350 Scan acquisition: uncomplicated Macro Version: [id number] For optimization of anatomic evaluation, advanced 3-D off-line postprocessing was performed on a dedicated workstation by the interpreting physician. STUDY LIMITATIONS: Limited contrast enhancement of the aorta except for the level of the heart.. RESULT: LINES, TUBES and DEVICES: None CHEST: Chest wall anatomy: unremarkable. Coarse calcifications bilateral breast LUNGS: bibasilar atelectasis. MEDIASTINUM: small mediastinal lymph nodes, which are not pathologic by size criteria. Small hiatal hernia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 PERICARDIUM: unremarkable CENTRAL PULMONARY ARTERY: normal dimensions. Assessment is limited due to limited contrast enhancement. CARDIAC CHAMBERS: LEFT VENTRICLE: normal size with normal systolic function RIGHT VENTRICLE: normal size and normal function on qualitative assessment. Left Atrium: normal size. ANNE MARIE: normal. Right Atrium: normal size CENTRAL VENOUS and PULMONARY VENOUS RETURN: normal. Coronary Sinus: normal size MITRAL VALVE: assessment is limited in the current study - no leaflet calcification. Mild mitral annular calcification TRICUSPID and PULMONIC VALVE: appear unremarkable. CORONARY ANATOMY: normal origin of the coronary arteries. Diffuse, calcified atherosclerotic changes of the coronary arteries, precluding precise assessment with CT. AORTIC ANNULUS: no calcification -max. and min. Diameter: 2.2 x 2.0 cm, AREA: 3.2 cm2, Circumference: 6.4 cm AORTIC VALVE: appears trileaflet. Severe leaflet calcification. - AV calcium score 2353 AU (threshold 160 HU, Score likely underestimated relative to standard threshold of 130 HU) - significant restriction of valve opening with star-shaped systolic opening area consistent with likely severe aortic stenosis. Coronary Height/distance to annulus: Left Main: 13 mm, RCA: 14 mm. AORTA: Pathology: No acute aortic pathology. Intervention: None Complications: n/a Aortic Size: Normal size thoracic and abdominal aorta. STJ: maintained. Wall Changes: scattered moderate partially calcified wall changes. Eccentric noncalcified plaque/thrombus mid descending Moderate to severe partially calcified wall changes infrarenal abdominal aorta. Arch Branch Vessels: Patent, normal size proximal segments of the arch branch vessels, with mild partially calcified wall changes. Visceral Branch Vessels: Patent, normal size proximal segments of the visceral branch vessels and renal arteries, with moderate proximal partially calcified wall changes. Iliac Arteries: Patent, normal size iliac arteries, with mild partially calcified wall changes. AORTIC DIMENSIONS: AORTIC ROOT: 3.0 cm measured [id number] STJ: 2.5 cm mid ASCENDING THORACIC AORTA: 3.7 cm mid AORTIC ARCH: 2.7 cm mid DESCENDING THORACIC AORTA: 2.7 cm JUXTARENAL ABDOMINAL AORTA (level of SMA): 2.1 cm mid INFRARENAL ABDOMINAL AORTA: 1.8 cm , focal mild eccentric dilatation Diameter Left and Right Common Iliac Arteries minimal luminal diameter: 7 / 7 mm respectively Diameter Left and Right External Iliac Arteries minimal luminal diameter: 6 / 6 mm respectively ABDOMEN Gallbladder: Gallstones within the gallbladder. Liver: cystic lesions. Spleen: unremarkable. Adrenal glands: unremarkable. Pancreas: unremarkable. Kidneys: cystic lesions. Bowel: appears unremarkable within limitations of non-GI contrast examination. PELVIS: Bladder: unremarkable. BONES and SOFT TISSUES: degenerative changes of the thoracic and lumbar spine.Bilateral hip arthroplasty Manager Rail (topogram) images: No additional findings. DIVISION OF RADIOLOGY Provider, [facility] - 08/31/2024 * * *Final Report* * * DATE OF EXAM: Aug 31 2024 12:44PM [facility] 0133 - CTA C/A/P (GATED) W IVCON / PROCEDURE REASON: multiple diagnoses * * * * Physician Interpretation * * * * CTA Aorta chest, abdomen and pelvis Direct Image Comparison: None HISTORY: 84 years y/o Female with chronic h/o aortic valve stenosis. Evaluation for further treatment options, including surgical and transcatheter interventional treatment. There is request to define thoracic and aortic anatomy. Additional request to define details aortic annulus and root anatomy including dynamic assessment TECHNIQUE: SCANNER: Multi-detector scanner PROTOCOL: Spiral imaging of the heart with retrospective gating with sub-millimeter slice reconstruction throughout the cardiac cycle for dynamic 4-D assessment, following intravenous contrast administration. Additional single-phase, non-gated spiral imaging of the chest/abdomen/pelvis without additional contrast administration. Scan Range: thoracic inlet through the ischial tuberosities CT Dose-Length Product (DLP): 1001 mGy*cm CT Dose Reduction Employed: Automated exposure control(AEC) and iterative recon CONTRAST: IV administration of 60 ml Omnipaque 350 Scan acquisition: uncomplicated Macro Version: [id number] For optimization of anatomic evaluation, advanced 3-D off-line postprocessing was performed on a dedicated workstation by the interpreting physician. STUDY LIMITATIONS: Limited contrast enhancement of the aorta except for the level of the heart.. RESULT: LINES, TUBES and DEVICES: None CHEST: Chest wall anatomy: unremarkable. Coarse calcifications bilateral breast LUNGS: bibasilar atelectasis. MEDIASTINUM: small mediastinal lymph nodes, which are not pathologic by size criteria. Small hiatal hernia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 PERICARDIUM: unremarkable CENTRAL PULMONARY ARTERY: normal dimensions. Assessment is limited due to limited contrast enhancement. CARDIAC CHAMBERS: LEFT VENTRICLE: normal size with normal systolic function RIGHT VENTRICLE: normal size and normal function on qualitative assessment. Left Atrium: normal size. ANNE MARIE: normal. Right Atrium: normal size CENTRAL VENOUS and PULMONARY VENOUS RETURN: normal. Coronary Sinus: normal size MITRAL VALVE: assessment is limited in the current study - no leaflet calcification. Mild mitral annular calcification TRICUSPID and PULMONIC VALVE: appear unremarkable. CORONARY ANATOMY: normal origin of the coronary arteries. Diffuse, calcified atherosclerotic changes of the coronary arteries, precluding precise assessment with CT. AORTIC ANNULUS: no calcification -max. and min. Diameter: 2.2 x 2.0 cm, AREA: 3.2 cm2, Circumference: 6.4 cm AORTIC VALVE: appears trileaflet. Severe leaflet calcification. - AV calcium score 2353 AU (threshold 160 HU, Score likely underestimated relative to standard threshold of 130 HU) - significant restriction of valve opening with star-shaped systolic opening area consistent with likely severe aortic stenosis. Coronary Height/distance to annulus: Left Main: 13 mm, RCA: 14 mm. AORTA: Pathology: No acute aortic pathology. Intervention: None Complications: n/a Aortic Size: Normal size thoracic and abdominal aorta. STJ: maintained. Wall Changes: scattered moderate partially calcified wall changes. Eccentric noncalcified plaque/thrombus mid descending Moderate to severe partially calcified wall changes infrarenal abdominal aorta. Arch Branch Vessels: Patent, normal size proximal segments of the arch branch vessels, with mild partially calcified wall changes. Visceral Branch Vessels: Patent, normal size proximal segments of the visceral branch vessels and renal arteries, with moderate proximal partially calcified wall changes. Iliac Arteries: Patent, normal size iliac arteries, with mild partially calcified wall changes. AORTIC DIMENSIONS: AORTIC ROOT: 3.0 cm measured [id number] STJ: 2.5 cm mid ASCENDING THORACIC AORTA: 3.7 cm mid AORTIC ARCH: 2.7 cm mid DESCENDING THORACIC AORTA: 2.7 cm JUXTARENAL ABDOMINAL AORTA (level of SMA): 2.1 cm mid INFRARENAL ABDOMINAL AORTA: 1.8 cm , focal mild eccentric dilatation Diameter Left and Right Common Iliac Arteries minimal luminal diameter: 7 / 7 mm respectively Diameter Left and Right External Iliac Arteries minimal luminal diameter: 6 / 6 mm respectively ABDOMEN Gallbladder: Gallstones within the gallbladder. Liver: cystic lesions. Spleen: unremarkable. Adrenal glands: unremarkable. Pancreas: unremarkable. Kidneys: cystic lesions. Bowel: appears unremarkable within limitations of non-GI contrast examination. PELVIS: Bladder: unremarkable. BONES and SOFT TISSUES: degenerative changes of the thoracic and lumbar spine.Larry (more content not included)... [facility] Radiology Study observation (narrative) [facility] CTA Chest vessels and Abdomi nal vessels and Pelvis vessels W contrast IVOrdered By: Ccf Provider on 08-31-2024 [facility] Comprehensive metabolic 2000 panelon 08-31-2024 Albumin [Mass/Vol] 4.2 g/dL Normal 3.9-4.9 [facility] Comment on above: Order Comment: Speci men Type: BLOOD SPECIMEN Ordering Facility: [facility] Address: [address] [place] [address] Performed By: #### 2 4323-8, 18092-3 #### [facility] CLIA [id number] [address] [place] [address] [place] ALP [Catalytic activity/Vol] 66 U/L Normal 34-123 [facility] Comment on above: Order Comment: Speci men Type: BLOOD SPECIMEN Ordering Facility: [facility] Address: [address] [place] [address] Performed By: #### 2 4323-8, 88747-9 #### [facility] CLIA [id number] [address] [place] [address] [place] ALT [Catalytic activity/Vol] 12 U/L Normal 7-38 [facility] Comment on above: Order Comment: Speci men Type: BLOOD SPECIMEN Ordering Facility: [facility] Address: [address] [place] [address] Performed By: #### 2 4323-8, 41856-6 #### [facility] CLIA [id number] [address] [place] [address] [place] Anion gap [Moles/Vol] 10 mmol/L Normal 8-15 [facility] Comment on above: Order Comment: Speci men Type: BLOOD SPECIMEN Ordering Facility: [facility] Address: [address] [place] [address] Performed By: #### 2 4323-8, 63443-3 #### [facility] CLIA [id number] [address] [place] [address] [place] AST [Catalytic activity/Vol] 42 U/L High 13-35 [facility] Comment on above: Order Comment: Speci men Type: BLOOD SPECIMEN Ordering Facility: [facility] Address: [address] [place] [address] Performed By: #### 2 4323-8, 78331-2 #### [facility] CLIA [id number] [address] [place] [address] [place] Bilirubin [Mass/Vol] 0.3 mg/dL Normal 0.2-1.3 [facility] Comment on above: Order Comment: Speci men Type: BLOOD SPECIMEN Ordering Facility: [facility] Address: [address] [place] [address] Performed By: #### 2 4323-8, 72588-9 #### [facility] CLIA [id number] [address] [place] [address] [place] Calcium [Mass/Vol] 9.6 mg/dL Normal 8.5-10.2 [facility] Comment on above: Order Comment: Speci men Type: BLOOD SPECIMEN Ordering Facility: [facility] Address: [address] [place] [address] Performed By: #### 2 4323-8, 94675-8 #### [facility] CLIA [id number] [address] [place], [place] [address] [place] Chloride [Moles/Vol] 106 mmol/L Normal 98-107 [facility] Comment on above: Order Comment: Speci men Type: BLOOD SPECIMEN Ordering Facility: [facility] Address: [address] [place] [address] Performed By: #### 2 4323-8, 66859-9 #### [facility] CLIA [id number] [address] [place], [place] [address] [place] CO2 [Moles/Vol] 27 mmol/L Normal 22-30 [facility] Comment on above: Order Comment: Terri mittal Type: BLOOD SPECIMEN Ordering Facility: [facility] Address: [address] [place] [address] Performed By: #### 2 4323-8, 66523-9 #### [facility] CLIA [id number] [address] [place] [address] [place] Creatinine [Mass/Vol] 0.86 mg/dL Normal 0.58-0.96 [facility] Comment on above: Order Comment: Terri mittal Type: BLOOD SPECIMEN Ordering Facility: [facility] Address: [address] [place] [address] Performed By: #### 2 4323-8, 80467-8 #### [facility] CLIA [id number] [address] [place] [address] [place] Creatinine and Glomerular filtration rate.predicted panel (S/P/Bld) 66 mL/min/1.73m??? Normal >=60 [facility] Comment on above: Order Comment: Terri mittal Type: BLOOD SPECIMEN Ordering Facility: [facility] Address: [address] [place] [address] Result Comment: Leanne mated Glomerular Filtration Rate (eGFR) is calculated using the 2020 CKD-EPI creatinine equation. This equation utilizes serum creatinine, sex, and age as parameters. The creatinine assay has traceable calibration to isotope dilution-mass spectrometry. Refer to KDIGO guidelines for clinical interpretation. In patients with unstable renal function, e.g. those with acute kidney injury, the eGFR may not accurately reflect actual GFR. Performed By: #### 2 4323-8, 38615-0 #### [facility] CLIA [id number] [address] [place] [address] [place] Glucose [Mass/Vol] 106 mg/dL High 74-99 [facility] Comment on above: Order Comment: Terri mittal Type: BLOOD SPECIMEN Ordering Facility: [facility] Address: [address] [place] [address] Result Comment: The [place] [employer] (ADA) provides guidance for cutoff values for fasting glucose and random glucose. The ADA defines fasting as no caloric intake for at least 8 hours. Fasting plasma glucose results between 100 to 125 mg/dL indicate increased risk for diabetes (prediabetes). Fasting plasma glucose results greater than or equal to 126 mg/dL meet the criteria for diagnosis of diabetes. In the absence of unequivocal hyperglycemia, results should be confirmed by repeat testing. In a patient with classic symptoms of hyperglycemia or hyperglycemic crisis, random plasma glucose results greater than or equal to 200 mg/dL meet the criteria for diagnosis of diabetes. Reference: Standards of Medical Care in Diabetes 2016, [place] [employer] Association. Diabetes Care. 2016.39(Suppl 1). Performed By: #### 2 4323-8, 71214-3 #### [facility] CLIA [id number] [address] [place] [address] [place] Potassium [Moles/Vol] 4.9 mmol/L Normal 3.7-5.1 [facility] Comment on above: Order Comment: Speci men Type: BLOOD SPECIMEN Ordering Facility: [facility] Address: [address] [place] [address] Performed By: #### 2 4323-8, 47717-7 #### [facility] CLIA [id number] [address] [place] [address] [place] Protein [Mass/Vol] 7.1 g/dL Normal 6.3-8.0 [facility] Comment on above: Order Comment: Speci men Type: BLOOD SPECIMEN Ordering Facility: [facility] Address: [address] [place] [address] Performed By: #### 2 4323-8, 57480-1 #### [facility] CLIA [id number] [address] [place] [address] [place] Sodium [Moles/Vol] 143 mmol/L Normal 136-144 [facility] Comment on above: Order Comment: Speci men Type: BLOOD SPECIMEN Ordering Facility: [facility] Address: [address] [place] [address] Performed By: #### 2 4323-8, 20741-3 #### [facility] IA [id number] [address] [place] [address] [place] Urea nitrogen [Mass/Vol] 21 mg/dL Normal 7-21 [facility] Comment on above: Order Comment: Speci men Type: BLOOD SPECIMEN Ordering Facility: [facility] Address: [address] [place] [address] Performed By: #### 2 4323-8, 89170-4 #### [facility] [place] [id number] [address] [place] [address] [place] ECG COMPLETEon 08-31-2024 ECG COMPLETE Ventricular Rate : 6 1 BPM Atrial Rate : 61 BPM P-R Interval : 226 ms QRS Duration : 90 ms Q-T Interval : 416 ms QTC Calculation(Bazett) : 418 ms Calculated P [place] : 77 degrees Calculated R [place] : 23 degrees Calculated T [place] : 96 degrees SINUS RHYTHM WITH 1ST DEGREE AV BLOCK NONSPECIFIC T WAVE ABNORMALITY ABNORMAL ECG Confirmed by BETTY FELICIANO MD ([id number]) on 10/13/2024 11:40:01 PM NAME : GOGO WARE PID : [id number] : 1940 Gender : Female Race : ORD : [id number] Procedure Date : Aug 31 2024 10:44:52 Edit Date : Oct 13 2024 23:40:02 Diagnosis: SINUS RHYTHM WITH 1ST DEGREE AV BLOCK NONSPECIFIC T WAVE ABNORMALITY ABNORMAL ECG Confirmed by BETTY FELICIANO MD ([id number]) on 10/13/2024 11:40:01 PM Test Reason : Location : 314 : J14 J14 Overread By : BETTY FELICIANO MD Edited By : BETTY FELICIANO MD Referred By : KACY JIMENEZ Acquired by : KACY INGRAM [facility] ECHOon 08-31-2024 Echocardiography Echocardiography Rep ort: Transthoracic Echo [place] [address] Date of service: 08/31/2024 3:15:51 PM 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 GOGO WARE : 1940 Age: 84 years Gender: F History of hypertension, dyslipidemia, coronary artery disease and valvular heart disease. Primary rhythm: sinus. Height: 165.10 cm BSA: 1.84 m Weight: 74.21 kg BMI: 27.2 kg/m Heart rate 66 bpm Blood pressure 186/54 mmHg Color Doppler was utilized to interrogate the cardiac valves assessed and spectral Doppler was utilized to determine the flow velocities and pressure gradients reported in this exam. Myocardial strain analysis was performed in this exam to aid in the assessment of cardiac function. MEASUREMENTS: Value Indexed Normal Max aortic dimension 2.5 cm Ao < 3.8 Left atrial volume 69 ml (biplane A-L) 37 ml/m Abigail <= 34 LV ID (diastole) 4.1 cm (2D) 2.20 cm/m LV ID (systole) 2.7 cm (2D) 1.48 cm/m IVS, leaflet tips 1.6 cm (2D) Posterior wall thickness 1.2 cm (2D) Left ventricular mass 208 g (2D) 113 g/m Global peak long strain -16.2 % LV stroke volume 61 ml (2D biplane) LVOT stroke volume 66 ml 36 ml/m LV end diastolic volume 103 ml (2D biplane) 55.7 ml/m 29<=EDVi<62 LV end systolic volume 41 ml (2D biplane) 22.4 ml/m Ejection Fraction 60 % (2D biplane) EF > 54 FINDINGS: LEFT VENTRICLE The left ventricle is normal in size. There is moderate septal left ventricular hypertrophy. Left ventricular systolic function is normal. Global LV myocardial strain is normal. Grade II left ventricular diastolic dysfunction. Mitral annular lateral E/e': 15.7. Mitral annular septal E/e': 18.3. Wall Motion: All scored segments are normal. RIGHT VENTRICLE The right ventricle is normal in size. Right ventricular systolic function is normal. RV systolic tissue Doppler velocity is 13.0 cm/s. Tricuspid annular displacement is 2.7 cm. Estimated right ventricular systolic pressure is 48 mmHg consistent with mild pulmonary hypertension. Estimated right atrial pressure is 3 mmHg based on IVC assessment. LEFT ATRIUM The left atrial cavity is mildly dilated. Pulmonary Veins: The pulmonary venous pattern showed normal systolic flow. RIGHT ATRIUM The right atrial cavity is normal in size. Inferior Vena Cava: The inferior vena cava appears normal measuring 1.6 cm. The vessel decreases greater than 50 percent with inspiration. MITRAL VALVE There is mild mitral annular calcification observed posterior. There is mild (1+) mitral valve regurgitation. There is mild thickening. The pressure half time is 57 msec. The peak mitral E/A ratio is 0.92. The mitral flow deceleration time is 196 msec. TRICUSPID VALVE There is trace (trace - 1+) tricuspid valve regurgitation. There is no thickening. AORTIC VALVE There is severe aortic valve stenosis caused by calcified valve and restricted opening. There is trace aortic valve regurgitation. Tricuspid aortic valve. There is severe thickening. There is severe calcification. The peak gradient is 98 mmHg (peak velocity = 494.0 cm/s). The mean gradient is 61 mmHg. The LVOT mean velocity is 67.6 cm/s. The LVOT diameter is 1.8 cm. The aortic VTI is 150.0 cm. The mean velocity in the aortic valve is 368.6 cm/s. The dimensionless valve index is 0.17. AV area is 0.44 cm (0.24 cm /m ) by continuity, VTI. The LVOT stroke volume index is 36 ml/m . PULMONIC VALVE There is trace pulmonic valve regurgitation. There is no thickening. AORTA The visualized aorta is normal in size. Measurements - Sinus: 2.5 cm. INTERATRIAL SEPTUM There is no evidence of intracardiac shunting as detected by Doppler. PERICARDIUM There is no pericardial effusion. There is an epicardial fat pad. CONCLUSIONS: - Exam indication: Aortic stenosis - The left ventricle is normal in size. There is moderate septal left ventricular hypertrophy. Left ventricular systolic function is normal. EF = 60 5% (2D biplane) Grade II left ventricular diastolic dysfunction. - The right ventricle is normal in size. Right ventricular systolic function is normal. - The left atrial cavity is mildly dilated. - Tricuspid aortic valve. There is severe aortic valve stenosis caused by calcified valve and restricted opening. AV area is 0.44 cm (0.24 cm /m ) by continuity, VTI. The peak gradient is 98 mmHg, the mean gradient is 61 mmHg and the dimensionless valve index is 0.17. Prior Pk/Mn gradient of 99/57 mmHg. - Exam was compared with the prior CC echocardiographic exam performed on 04/15/2024. SImilar findings. * * * Final * * * [employer] [facility] : [id number] [email or web address] (more content not included)... Normal [facility] HIGH SENSITIVITY TROPONIN To n 08-31-2024 Troponin T.cardiac High sensitivity method [Mass/Vol] 22 ng/L High <12 [facility] Comment on above: Order Comment: Speci men Type: BLOOD SPECIMEN Ordering Facility: [facility] Address: [address] [place] [address] Performed By: #### 2 4323-8, 03353-7 #### [facility] CLIA [id number] [address] [place] [address] [place] LIPID PANEL, NONFASTINGon Cholesterol [Mass/Vol] 155 mg/dL NINF - 200 mg/dL [facility] Comment on above: <200 mg/dL, Desirabl e 200-239 mg/dL, Borderline high >239 mg/dL, High HDL Cholesterol, Nonfasting 78 mg/dL 39 - PINF mg/dL [facility] Comment on above: 40-59 mg/dL, Accepta ble >59 mg/dL, High: Negative risk factor for coronary heart disease <40 mg/dL, Low: Positive risk factor for coronary heart disease Interpretation and review of laboratory results Normal [facility] LDL Cholesterol, Nonfasting 63 mg/dL NINF - 100 mg/dL [facility] Comment on above: <100 mg/dL, Optimal 100-129 mg/dL, Near optimal/above optimal 130-159 mg/dL, Borderline high 160-189 mg/dL, High >189 mg/dL, Very high Secondary prevention optimal LDL Cholesterol levels are recommended to be < 70 mg/dL LDL/HDL Ratio, Nonfasting 0.81 mg/dL NINF - 2.54 mg/dL [facility] Comment on above: Reference: 1. National Cholesterol Education Program ATP III Guideline At-A-Glance Quick Desk Reference: National Heart, Lung, and Blood Sullivan. National Institutes of Health. 2001: NIH Publication No. 01-3305. 2. An International Atherosclerosis Society position paper: global recommendations for the management of dyslipidemia: executive summary, Atherosclerosis. 2014: 232(2):410-413. Non HDL Cholesterol, Nonfasting 77 mg/dL NINF - 130 mg/dL [facility] Comment on above: <130 mg/dL, Optimal 130-159 mg/dL, Near optimal/above optimal 160-189 mg/dL, Borderline high 190-219 mg/dL, High >219 mg/dL, Very high Secondary prevention optimal non HDL Cholesterol levels are recommended to be <100 mg/dL Total Chol/HDL Ratio, Nonfasting 1.99 mg/dL NINF - 5.10 mg/dL [facility] Triglycerides, Nonfasting 68 mg/dL [facility] mg/dL [facility] Comment on above: <150 mg/dL, Normal 150-199 mg/dL, Borderline high 200-499 mg/dL, High >499 mg/dL, Very high VLDL Cholesterol, Nonfasting 14 mg/dL NINF - 30 mg/dL [facility] Cholesterol [Mass/Vol] 155 mg/dL Normal <200 [facility] Comment on above: Order Comment: Terri mittal Type: BLOOD SPECIMEN Ordering Facility: [facility] Address: [address] [place] [address] Result Comment: <200 mg/dL, Desirable 200-239 mg/dL, Borderline high >239 mg/dL, High Performed By: #### 2 4323-8, 70462-4 #### [facility] CLIA [id number] [address] [place], [place] [address] [place] [address] [place] HDL CHOLESTEROL, NF 78 mg/dL Normal >39 [facility] Comment on above: Order Comment: Terri mittal Type: BLOOD SPECIMEN Ordering Facility: [facility] Address: [address] [place] [address] Result Comment: 40-5 9 mg/dL, Acceptable >59 mg/dL, High: Negative risk factor for coronary heart disease <40 mg/dL, Low: Positive risk factor for coronary heart disease Performed By: #### 2 4323-8, 05926-7 #### [facility] CLIA [id number] [address] [place] [address] [place] LDL CHOLESTEROL, NF 63 mg/dL Normal <100 [facility] Comment on above: Order Comment: Terri mittal Type: BLOOD SPECIMEN Ordering Facility: [facility] Address: [address] [place] [address] Result Comment: <100 mg/dL, Optimal 100-129 mg/dL, Near optimal/above optimal 130-159 mg/dL, Borderline high 160-189 mg/dL, High >189 mg/dL, Very high Secondary prevention optimal LDL Cholesterol levels are recommended to be < 70 mg/dL Performed By: #### 2 4323-8, 46062-9 #### [facility] CLIA [id number] [address] [place] [address] [place] LDL/HDL RATIO, NF 0.81 mg/dL Normal <2.54 [facility] Comment on above: Order Comment: Terri men Type: BLOOD SPECIMEN Ordering Facility: [facility] Address: [address] [place] [address] Result Comment: Valeria rome: 1. National Cholesterol Education Program ATP III Guideline At-A-Glance Quick Desk Reference: National Heart, Lung, and Blood Sullivan. National Institutes of Health. 2001: NIH Publication No. 01-3305. 2. An International Atherosclerosis Society position paper: global recommendations for the management of dyslipidemia: executive summary, Atherosclerosis. 2014: 232(2):410-413. Performed By: #### 2 4323-8, 52721-6 #### [facility] CLIA [id number] [address] [place] [address] [place] NON HDL CHOL, NF 77 mg/dL Normal <130 [facility] Comment on above: Order Comment: Terri mittal Type: BLOOD SPECIMEN Ordering Facility: [facility] Address: [address] [place] [address] Result Comment: <130 mg/dL, Optimal 130-159 mg/dL, Near optimal/above optimal 160-189 mg/dL, Borderline high 190-219 mg/dL, High >219 mg/dL, Very high Secondary prevention optimal non HDL Cholesterol levels are recommended to be <100 mg/dL Performed By: #### 2 4323-8, 12687-0 #### [facility] CLIA [id number] [address] [place] [address] [place] T CHOL/HDL RATIO NF 1.99 mg/dL Normal <5.10 [facility] Comment on above: Order Comment: Speci men Type: BLOOD SPECIMEN Ordering Facility: [facility] Address: [address] [place] [address] Performed By: #### 2 4323-8, 75652-1 #### [facility] CLIA [id number] [address] [place] [address] [place] TRIGLYCERIDES, NF 68 mg/dL Normal <150 [facility] Comment on above: Order Comment: Speci men Type: BLOOD SPECIMEN Ordering Facility: [facility] Address: [address] [place] [address] Result Comment: <150 mg/dL, Normal 150-199 mg/dL, Borderline high 200-499 mg/dL, High >499 mg/dL, Very high Performed By: #### 2 4323-8, 06083-3 #### [facility] CLIA [id number] [address] [place] [address] [place] VLDL CHOLESTEROL, NF 14 mg/dL Normal <30 [facility] Comment on above: Order Comment: Speci men Type: BLOOD SPECIMEN Ordering Facility: [facility] Address: [address] [place] [address] Performed By: #### 2 4323-8, 51184-8 #### [facility] CLIA [id number] [address] [place] [address] [place] LPa SerPl-mCncon 08-31-2024 Lipoprotein a [Mass/Vol] 10 mg/dL Normal <30 [facility] Comment on above: Order Comment: Speci men Type: BLOOD SPECIMEN Ordering Facility: [facility] Address: [address] [place] [address] Performed By: #### 2 [id number], [id number] #### [facility] CLIA [id number] [address] [place] [address] [place] NT-proBNP [facility] 08-31 Natriuretic peptide.B prohormone N-Terminal [Mass/Vol] 1668 pg/mL High <450 [facility] Comment on above: Order Comment: Rahul kyrie Type: ARTERIAL BLOOD SPECIMEN Ordering Facility: [facility] Address: [address] [place] [address] Performed By: #### A LLBG #### [facility] CLIA [id number] [address] [place] [address] [place] US CAROTID ARTERIES [facility] 08-31-2024 US CAROTID ARTERIES [facility] Non-Invasive Vascular Laboratory [facility] J35 Carotid Duplex Bilateral/Complete Date of service/time: 08/31/2024 1:42:30 PM Name: MRS. GOGO WARE Date of : 1940 Age: 84 years Gender: F Clinical Indication Pre op for cardiac surgery. TECHNIQUE -------- A carotid duplex ultrasound examination was performed, including grayscale imaging and color Doppler and spectral Doppler examination of the below mentioned arteries. FINDINGS -------- RIGHT SIDE Common carotid artery: Origin: PSV: 80 cm/s. EDV: 8 cm/s. Proximal: PSV: 64 cm/s. EDV: 12 cm/s. Mid: PSV: 73 cm/s. EDV: 14 cm/s. Distal: PSV: 53 cm/s. EDV: 11 cm/s. Mild heterogeneous plaque at distal. Internal carotid artery: Origin: PSV: 71 cm/s. EDV: 48 cm/s. Proximal: PSV: 88 cm/s. EDV: 23 cm/s. Mid: PSV: 65 cm/s. EDV: 17 cm/s. Distal: PSV: 75 cm/s. EDV: 23 cm/s. Mild heterogeneous plaque from origin to proximal. ICA/CCA Ratio: 1.7 External carotid artery: PSV: 53 cm/s. EDV: 0 cm/s. Subclavian artery: PSV: 93 cm/s. EDV: 0 cm/s. Origin: PSV: 93 cm/s. EDV: 0 cm/s. Innominate artery: PSV: 79 cm/s. EDV: 11 cm/s. Vertebral artery: PSV: 43 cm/s. EDV: 10 cm/s. LEFT SIDE Common carotid artery: Proximal: PSV: 72 cm/s. EDV: 10 cm/s. Mid: PSV: 54 cm/s. EDV: 10 cm/s. Distal: PSV: 53 cm/s. EDV: 10 cm/s. Mild heterogeneous plaque at distal. Internal carotid artery: Origin: PSV: 40 cm/s. EDV: 12 cm/s. Proximal: PSV: 46 cm/s. EDV: 15 cm/s. Mid: PSV: 51 cm/s. EDV: 15 cm/s. Distal: PSV: 66 cm/s. EDV: 20 cm/s. Mild heterogeneous plaque from origin to proximal. ICA/CCA Ratio: 0.9 External carotid artery: PSV: 48 cm/s. EDV: 6 cm/s. Subclavian artery: Proximal: PSV: 118 cm/s. EDV: 0 cm/s. Vertebral artery: PSV: 49 cm/s. EDV: 15 cm/s. IMPRESSION RIGHT SIDE Common carotid artery: Plaque visualized without evidence of hemodynamically significant stenosis. Internal carotid artery: <50% stenosis consistent with mild carotid artery disease. Vertebral artery: Patent and antegrade flow noted. LEFT SIDE Common carotid artery: Plaque visualized without evidence of hemodynamically significant stenosis. Internal carotid artery: <50% stenosis consistent with mild carotid artery disease. Vertebral artery: Patent and antegrade flow noted. Technologist: Azul Lin RVT Ordering physician: KACY JIMENEZ Interpreting physician: Medina Patel MD, RPVI Final [employer] Medical Image : [id number] See Link below for Image Normal [facility] XR CHEST 2V FRONTAL/LATon XR CHEST 2V FRONTAL/LAT * * *Final Report* * * DATE OF EXAM: Aug 31 2024 10:52AM [id number] - XR CHEST 2V FRONTAL/LAT / PROCEDURE REASON: multiple diagnoses * * * * Physician Interpretation * * * * EXAMINATION: CHEST RADIOGRAPH (2 VIEW FRONTAL and LATERAL) CLINICAL HISTORY: Severe aortic stenosis by prior echocardiogram. Encounter for preprocedural cardiovascular examination. MQ: XC2_6 EXAM DATE/TIME: 08/31/2024 10:52 AM COMPARISON: Chest radiograph 12/23/2017. RESULT: Lines, tubes, and devices: None. Lungs and pleura: Bibasilar atelectasis. No consolidation. No pleural effusion. No pneumothorax. Cardiomediastinal silhouette: Anterior mediastinal cystic mass seen on same day CT not well visualized on this radiograph.. Atherosclerotic calcifications in the thoracic aorta. Bones and soft tissues: Degenerative changes are present within the thoracic spine. IMPRESSION: Anterior mediastinal cystic mass seen on same day CT not well visualized on this radiograph. Lower lung atelectasis. General Studies Program Chair: ESTIVEN Transcribe Date/Time: Aug 31 2024 3:37P Dictated by : ELOISA JIMENEZ MD This examination was interpreted and the report reviewed and electronically signed by: WOOD ADMON MD on Aug 31 2024 5:31PM EST [id number] Normal [facility] XR Chest PA and Lateralon IMPRESSION: Anterior mediastinal cystic mass seen on same day CT not well visualized on this radiograph. Lower lung atelectasis. General Studies Program Chair: ESTIVEN Transcribe Date/Time: Aug 31 2024 3:37P Dictated by : ELOISA JIMENEZ MD This examination was interpreted and the report reviewed and electronically signed by: WOOD DAMON MD on Aug 31 2024 5:31PM [facility] RAD[facility] * * *Final Report* * * DATE OF EXAM: Aug 31 2024 10:52AM JIX [id number] - XR CHEST 2V FRONTAL/LAT / PROCEDURE REASON: multiple diagnoses * * * * Physician Interpretation * * * * EXAMINATION: CHEST RADIOGRAPH (2 VIEW FRONTAL & LATERAL) CLINICAL HISTORY: Severe aortic stenosis by prior echocardiogram. Encounter for preprocedural cardiovascular examination. MQ: XC2_6 EXAM DATE/TIME: 08/31/2024 10:52 AM COMPARISON: Chest radiograph 12/23/2017. RESULT: Lines, tubes, and devices: None. Lungs and pleura: Bibasilar atelectasis. No consolidation. No pleural effusion. No pneumothorax. Cardiomediastinal silhouette: Anterior mediastinal cystic mass seen on same day CT not well visualized on this radiograph.. Atherosclerotic calcifications in the thoracic aorta. Bones and soft tissues: Degenerative changes are present within the thoracic spine. DIVISION OF RADIOLOGY Provider, [facility] - 08/31/2024 * * *Final Report* * * DATE OF EXAM: Aug 31 2024 10:52AM JIX [id number] - XR CHEST 2V FRONTAL/LAT / PROCEDURE REASON: multiple diagnoses * * * * Physician Interpretation * * * * EXAMINATION: CHEST RADIOGRAPH (2 VIEW FRONTAL & LATERAL) CLINICAL HISTORY: Severe aortic stenosis by prior echocardiogram. Encounter for preprocedural cardiovascular examination. MQ: XC2_6 EXAM DATE/TIME: 08/31/2024 10:52 AM COMPARISON: Chest radiograph 12/23/2017. RESULT: Lines, tubes, and devices: None. Lungs and pleura: Bibasilar atelectasis. No consolidation. No pleural effusion. No pneumothorax. Cardiomediastinal silhouette: Anterior mediastinal cystic mass seen on same day CT not well visualized on this radiograph.. Atherosclerotic calcifications in the thoracic aorta. Bones and soft tissues: Degenerative changes are present within the thoracic spine. IMPRESSION IMPRESSION: Anterior mediastinal cystic mass seen on same day CT not well visualized on this radiograph. Lower lung atelectasis. General Studies Program Chair: ESTIVEN Transcribe Date/Time: Aug 31 2024 3:37P Dictated by : ELOISA JIMENEZ MD This examination was interpreted and the report reviewed and electronically signed by: WOOD DAMON MD on Aug 31 2024 5:31PM EST [facility] Radiology Study observation (narrative) [facility] XR Chest PA and LateralOrder ed By: [facility]cf Provider on 08-31-2024 [facility] CNPNon 05-22-2024 CNPN Telephone (CARIMN) GOGO WARE ([id number]) 1940 F Date Time Provider Department 05/22/24 JAMES LINDO During your visit today, we recorded the following information about you: James Lindo MD 05/22/2024 8:10 AM Signed She gets dyspnea when over-exerting, not with ordinary activities. NT pro BNP is significantly elevated. Will refer for consideration of TAVR. Patient agreeable. Allergies As of Date: 05/22/2024 (No Known Allergies) Date Reviewed: 04/28/2024 Reviewed by: Zunilda Cardenas, LOULOU - Fully Assessed Primary Visit Diagnosis:Non-rheumatic aortic stenosis [I35.0] Order(s):CONSULT TO TAVR/TMVR [[id number]] Order #: [id number]: 1 Prescriptions as of 05/22/2024 - valsartan (DIOVAN) 160 mg tablet Take 0.5 tablets by mouth once daily. - moxifloxacin (VIGAMOX) 0.5 % ophthalmic solution Use 1 Drop in the left eye four times daily. - carvedilol (COREG) 12.5 mg tablet Take 1 tablet by mouth twice daily with meals. - atorvastatin (LIPITOR) 40 mg tablet Take 1 tablet by mouth once daily. - brimonidine (ALPHAGAN) 0.2 % ophthalmic solution Use 2 Drops in both eyes twice daily. - DORZOLAMIDE HCL/TIMOLOL MALEAT (DORZOLAMIDE-TIMOLOL OPHTHALMIC) Use 1 Drop in eyes twice daily. - aspirin, enteric coated (ASPIRIN, ENTERIC COATED) 81 mg EC tablet Take 81 mg by mouth once daily. - temazepam (RESTORIL) 30 mg cap Take 30 mg by mouth at bedtime as needed. - latanoprost (XALATAN) 0.005 % ophthalmic solution Use 1 Drop in both eyes daily at bedtime. Meds Comments as of 01/05/2013: PT STATES SHE USES ANOTHER DROP, GREEN TOP, AT NIGHT OU Problem List As Of Date 05/22/2024 Noted Resolved Mixed hyperlipidemia [E78.2] 02/26/2019 Essential (primary) hypertension [I10] 09/09/2017 Coronary artery disease involving [place] guo*04/07/2024 Insomnia [G47.00] 04/07/2024 Glaucoma [H40.9] 04/07/2024 Severe aortic stenosis by prior echocardiogram *04/07/2024 Encounter Status:Closed by JAMES LINDO on 05/22/24 [facility] CNOVon 04-28-2024 CNOV Office Visit (LUANNE ) GOGO WARE ([id number]) 1940 F Date Time Provider Department 04/28/24 1:45 PM JAMES LINDO During your visit today, we recorded the following information about you: Pulse Blood pressure Weight Height 58/minute 137/66 73.9 kg 1.651 m James Lindo MD 04/28/2024 3:32 PM Signed [facility] Department of Cardiovascular Medicine SECTION OF CARDIOVASCULAR IMAGING OUTPATIENT VISIT DATE April 28, 2024 OUTPATIENT VISIT TYPE CONSULTATION PRIMARY CARE PHYSICIAN: To use this Smartlink, specify the provider ID whose address you want to display, e.g., .PROVADDR[1 (where 1 is the provider ID). REFERRING PHYSICIAN Berta Rankin [address] [address] CHIEF COMPLAINT: Aortic stenosis HISTORY OF PRESENT ILLNESS/ NURSING INTAKE: Cardiac consultation at the request of Dr. Berta Rich. A copy of this consultation note will be provided to the requesting physician by way of shared Medical record or letter to requesting physician via [place] mail. Ms. Ware is a 84 year old female from [place], [place] here today for cardiovascular evaluation related to aortic valve stenosis and TAVR evaluation. Significant medical history includes: - Aortic valve stenosis - CAD - Hypertension - Hyperlipidemia - Glaucoma Family history is significant for: Sister: Coronary artery disease, aortic stenosis Ms. Clark states she has known for years that she had issues with her aortic valve. She underwent eye surgery on 04/15/2024. Prior to this, she underwent an echocardiogram which showed severe aortic valve stenosis caused by calcified valve and restricted opening. She was referred by VICTOR M Hercules referred the patient to [facility] imaging for TAVR workup. She reports shortness of breath on significant exertion. She denies chest pain, palpitations, edema, lightheadedness, dizziness, presyncope, and syncope at this time. PAST MEDICAL HISTORY Diagnosis Date Aortic valve stenosis Disease PROBLEM SLEEPING Essential hypertension Glaucoma Mixed hyperlipidemia PAST SURGICAL HISTORY Procedure Laterality Date PROCEDURE 1999, 2006 BOTH HIPS REPLACED PROCEDURE 2009 LASER OU FOR GLAUCOMA SOCIAL HISTORY Social History Tobacco Use Smoking status: Never Smokeless tobacco: Never Vaping Use Vaping Use: Never used Substance Use Topics Alcohol use: Never Drug use: Never FAMILY HISTORY Problem Relation Age of Onset Glaucoma Father Diabetes Father Coronary Artery Disease Sister Colon Cancer Maternal Grandmother Stroke Maternal Grandfather Blindness Other GREAT AUNT Colon Cancer Other ALLERGIES: ALLERGIES No Known Allergies MEDICATIONS: valsartan (DIOVAN) 160 mg tablet Take 0.5 tablets by mouth once daily. prednisoLONE acetate (PRED FORTE) 1 % ophthalmic suspension Use 1 Drop in the left eye four times daily for 7 days, THEN 1 Drop three times a day for 7 days, THEN 1 Drop two times a day for 7 days, THEN 1 Drop once daily for 7 days. moxifloxacin (VIGAMOX) 0.5 % ophthalmic solution Use 1 Drop in the left eye four times daily. keTORolac (ACULAR) 0.5 % ophthalmic solution Use 1 Drop in the left eye four times daily for 14 days. carvedilol (COREG) 12.5 mg tablet Take 1 tablet by mouth twice daily with meals. atorvastatin (LIPITOR) 40 mg tablet Take 1 tablet by mouth once daily. brimonidine (ALPHAGAN) 0.2 % ophthalmic solution Use 2 Drops in both eyes twice daily. DORZOLAMIDE HCL/TIMOLOL MALEAT (DORZOLAMIDE-TIMOLOL OPHTHALMIC) Use 1 Drop in eyes twice daily. aspirin, enteric coated (ASPIRIN, ENTERIC COATED) 81 mg EC tablet Take 81 mg by mouth once daily. latanoprost (XALATAN) 0.005 % ophthalmic solution Use 1 Drop in both eyes daily at bedtime. temazepam (RESTORIL) 30 mg cap Take 30 mg by mouth at bedtime as needed. (Patient not taking: Reported on 04/28/2024) REVIEW OF SYSTEMS: Positive in BOLD GENERAL: Weight loss or gain, Fever or Chills, Weakness and Sleep difficulties. HEENT: Headache, Glasses/Contacts, Eye pain, Impaired Vision, Trouble/Decreased Hearing, Ringing in Ears, Nosebleeds, Dental Problems, Bleeding Gums, Dentures NECK: Swelling, Pain, Stiffness RESPIRATORY: Cough, Blood in Sputum, Shortness of breath, Wheezing, Asthma, Sleep Apnea SKIN: Rashes, Itching GASTROINTESTINAL: Trouble swallowing, Heartburn, Change in bowel habits, Blood in stool, Dark black stools MUSCULOSKELETAL: Muscle or joint pain, Stiffness , Joint swelling NEUROLOGIC/PSYCHIATRIC: Weakness, Paralysis, Numbness, Tingling, Tremor, Nervousness, Anxiety, Depressed mood, Memory loss HEMATOLOGICAL/LYMPHATIC: Easy bruising , Easy bleeding ENDOCRINE: Heat or cold intolerance, Excessive sweating, Frequent urination, Frequent thirst PHYSICAL EXAMINATION: BP 137/66 Pulse (!) (more content not included)... Normal [facility] [id number] 04-28-2024 ECG01 Ventricular Rate : 6 4 BPM Atrial Rate : 64 BPM P-R Interval : 212 ms QRS Duration : 92 ms Q-T Interval : 408 ms QTC Calculation(Bazett) : 420 ms Calculated P [place] : 76 degrees Calculated R [place] : 17 degrees Calculated T [place] : 69 degrees SINUS RHYTHM WITH 1ST DEGREE AV BLOCK OTHERWISE NORMAL ECG Confirmed by MD PENNY, PhD, JOSUÉ ([id number]) on 05/08/2024 5:57:26 AM NAME : GOGO WARE PID : [id number] : 1940 Gender : Female Race : ORD : Procedure Date : Apr 28 2024 13:41:47 Edit Date : May 08 2024 05:57:29 Diagnosis: SINUS RHYTHM WITH 1ST DEGREE AV BLOCK OTHERWISE NORMAL ECG Confirmed by MD PENNY, PhD, JOSUÉ ([id number]) on 05/08/2024 5:57:26 AM Test Reason : Location : [facility] : [facility] Overread By : MD PENNY, PhD,JOSUÉ Edited By : MD PENNY, PhD,JOSUÉ Referred By : JAMES LINDO Acquired by : ROSEMARIE BARNEY Normal [facility] NT-proBNP [facility] 04-28 Natriuretic peptide.B prohormone N-Terminal [Mass/Vol] 1572 pg/mL High <450 [facility] Comment on above: Order Comment: Speci men Type: ARTERIAL BLOOD SPECIMEN Ordering Facility: [facility] Address: [address] [place] [address] Performed By: #### A LLBG #### [facility] CLIA [id number] [address] [place] [address] OF [facility] 04-23-2024 CNPN Telephone (IMOPMN) GOGO WARE ([id number]) 1940 F Date Time Provider Department 04/23/24 AZUL MADRIGAL [facility] During your visit today, we recorded the following information about you: Azul Madrigal APRN.MEDICAL RECORDS SPECIALIST 04/23/2024 2:46 PM Signed I called the patient to discuss her upcoming appointments with the dermatology physician assistant to evaluate for possible TAVR. The patient was agreeable to the date and time. Chaz asked if I can call her friend Kenisha who will be bringing her to these appointments and I left a message on Fernando' voicemail with the appointment times and desk area. I've also left my office phone number to go over the directions and the appointment schedule with her as well if she has a question or concern about where to come for the appointments. Also of note, Dr Lindo's district administrative assistant left a message for Kenisha to call her to go over the appointments and to assist her with the directions. Azul Madrigal APRN-MEDICAL RECORDS SPECIALIST Allergies As of Date: 04/23/2024 (No Known Allergies) Date Reviewed: 04/21/2024 Reviewed by: Kacy Pathak COA - Fully Assessed Reason for Visit: Appointment [186] Cmt: [employer] appt 04/28/2024 Prescriptions as of 04/23/2024 - valsartan (DIOVAN) 160 mg tablet Take 0.5 tablets by mouth once daily. - prednisoLONE acetate (PRED FORTE) 1 % ophthalmic suspension Use 1 Drop in the left eye four times daily for 7 days, THEN 1 Drop three times a day for 7 days, THEN 1 Drop two times a day for 7 days, THEN 1 Drop once daily for 7 days. - moxifloxacin (VIGAMOX) 0.5 % ophthalmic solution Use 1 Drop in the left eye four times daily. - keTORolac (ACULAR) 0.5 % ophthalmic solution Use 1 Drop in the left eye four times daily for 14 days. - carvedilol (COREG) 12.5 mg tablet Take 1 tablet by mouth twice daily with meals. - atorvastatin (LIPITOR) 40 mg tablet Take 1 tablet by mouth once daily. - brimonidine (ALPHAGAN) 0.2 % ophthalmic solution Use 2 Drops in both eyes twice daily. - DORZOLAMIDE HCL/TIMOLOL MALEAT (DORZOLAMIDE-TIMOLOL OPHTHALMIC) Use 1 Drop in eyes twice daily. - aspirin, enteric coated (ASPIRIN, ENTERIC COATED) 81 mg EC tablet Take 81 mg by mouth once daily. - temazepam (RESTORIL) 30 mg cap Take 30 mg by mouth at bedtime as needed. - latanoprost (XALATAN) 0.005 % ophthalmic solution Use 1 Drop in both eyes daily at bedtime. Meds Comments as of 01/05/2013: PT STATES SHE USES ANOTHER DROP, GREEN TOP, AT NIGHT OU Problem List As Of Date 04/23/2024 Noted Resolved Mixed hyperlipidemia [E78.2] 02/26/2019 Essential (primary) hypertension [I10] 09/09/2017 Coronary artery disease involving [place] guo*04/07/2024 Insomnia [G47.00] 04/07/2024 Glaucoma [H40.9] 04/07/2024 Severe aortic stenosis by prior echocardiogram *04/07/2024 Encounter Status:Closed by AZUL MADRIGAL on 04/23/24 [facility] Telephone (CARIMN) GOGO WARE ([id number]) 1940 F Date Time Provider Department 04/23/24 JAMES LINDO During your visit today, we recorded the following information about you: Vitor Toth 04/23/2024 9:56 AM Signed Called patient's friend - Kenisha Hedrick, to provide appointment information. There was no answer, left voicemail requesting call back Allergies As of Date: 04/23/2024 (No Known Allergies) Date Reviewed: 04/21/2024 Reviewed by: Kacy Pathak COA - Fully Assessed Reason for Visit: Appointment [186] Prescriptions as of 04/23/2024 - valsartan (DIOVAN) 160 mg tablet Take 0.5 tablets by mouth once daily. - prednisoLONE acetate (PRED FORTE) 1 % ophthalmic suspension Use 1 Drop in the left eye four times daily for 7 days, THEN 1 Drop three times a day for 7 days, THEN 1 Drop two times a day for 7 days, THEN 1 Drop once daily for 7 days. - moxifloxacin (VIGAMOX) 0.5 % ophthalmic solution Use 1 Drop in the left eye four times daily. - keTORolac (ACULAR) 0.5 % ophthalmic solution Use 1 Drop in the left eye four times daily for 14 days. - carvedilol (COREG) 12.5 mg tablet Take 1 tablet by mouth twice daily with meals. - atorvastatin (LIPITOR) 40 mg tablet Take 1 tablet by mouth once daily. - brimonidine (ALPHAGAN) 0.2 % ophthalmic solution Use 2 Drops in both eyes twice daily. - DORZOLAMIDE HCL/TIMOLOL MALEAT (DORZOLAMIDE-TIMOLOL OPHTHALMIC) Use 1 Drop in eyes twice daily. - aspirin, enteric coated (ASPIRIN, ENTERIC COATED) 81 mg EC tablet Take 81 mg by mouth once daily. - temazepam (RESTORIL) 30 mg cap Take 30 mg by mouth at bedtime as needed. - latanoprost (XALATAN) 0.005 % ophthalmic solution Use 1 Drop in both eyes daily at bedtime. Meds Comments as of 01/05/2013: PT STATES SHE USES ANOTHER DROP, GREEN TOP, AT NIGHT OU Problem List As Of Date 04/23/2024 Noted Resolved Mixed hyperlipidemia [E78.2] 02/26/2019 Essential (primary) hypertension [I10] 09/09/2017 Coronary artery disease involving [place] guo*04/07/2024 Insomnia [G47.00] 04/07/2024 Glaucoma [H40.9] 04/07/2024 Severe aortic stenosis by prior echocardiogram *04/07/2024 Encounter Status:Closed by VITOR TOTH on 04/23/24 [facility] 04[facility]21[facility]20[facility] (IM[facility]ATRICEMN[facility] GOGO WARE ([id number]) 1940 F Date Time Provider Department 04/21/24 AZUL MADRIGAL [facility] During your visit today, we recorded the following information about you: Azul Madrigal APRN.MEDICAL RECORDS SPECIALIST 04/21/2024 9:02 AM Signed Called Interventional Cardiology to schedule consult for consideration of TAVR. Scheduled for Sunday April 28, 2024. Attempted to call the patient to discuss April appointment as next available is not until July 2024. NO voicemail, NO answer. I will send a message to Dr Triana to let patient know of appt during her post op appt and if she has a concern or question, she can call me to reschedule if needed. Azul Madrigal APRN-MEDICAL RECORDS SPECIALIST Allergies As of Date: 04/21/2024 (No Known Allergies) Date Reviewed: 04/20/2024 Reviewed by: Chinyere Lo RN - Fully Assessed Reason for Visit: Appointment [186] Cmt: Cardiology scheduling to discuss TAVR TAVR [Other] Primary Visit Diagnosis:Aortic valve stenosis, etiology of cardiac valve disease unspecified [I35.0] Order(s):CONSULT TO INTERVENTIONAL CARDIOLOGY [[id number]] Order #: [id number]: 1 FUTURE Prescriptions as of 04/21/2024 - valsartan (DIOVAN) 160 mg tablet Take 0.5 tablets by mouth once daily. - prednisoLONE acetate (PRED FORTE) 1 % ophthalmic suspension Use 1 Drop in the left eye four times daily for 7 days, THEN 1 Drop three times a day for 7 days, THEN 1 Drop two times a day for 7 days, THEN 1 Drop once daily for 7 days. - moxifloxacin (VIGAMOX) 0.5 % ophthalmic solution Use 1 Drop in the left eye four times daily. - keTORolac (ACULAR) 0.5 % ophthalmic solution Use 1 Drop in the left eye four times daily for 14 days. - carvedilol (COREG) 12.5 mg tablet Take 1 tablet by mouth twice daily with meals. - atorvastatin (LIPITOR) 40 mg tablet Take 1 tablet by mouth once daily. - brimonidine (ALPHAGAN) 0.2 % ophthalmic solution Use 2 Drops in both eyes twice daily. - DORZOLAMIDE HCL/TIMOLOL MALEAT (DORZOLAMIDE-TIMOLOL OPHTHALMIC) Use 1 Drop in eyes twice daily. - aspirin, enteric coated (ASPIRIN, ENTERIC COATED) 81 mg EC tablet Take 81 mg by mouth once daily. - temazepam (RESTORIL) 30 mg cap Take 30 mg by mouth at bedtime as needed. - latanoprost (XALATAN) 0.005 % ophthalmic solution Use 1 Drop in both eyes daily at bedtime. Meds Comments as of 01/05/2013: PT STATES SHE USES ANOTHER DROP, GREEN TOP, AT NIGHT OU Problem List As Of Date 04/21/2024 Noted Resolved Mixed hyperlipidemia [E78.2] 02/26/2019 Essential (primary) hypertension [I10] 09/09/2017 Coronary artery disease involving [place] guo*04/07/2024 Insomnia [G47.00] 04/07/2024 Glaucoma [H40.9] 04/07/2024 Severe aortic stenosis by prior echocardiogram *04/07/2024 Encounter Status:Closed by AZUL MADRIGAL on 04/21/24 [facility] ANES POSTPROC EVALon 024 ANES POSTPROC EVAL HNO ID: [id number] Author: THERESE RUELAS MD Service: ? Author Type: Anesthesiologist Type: Anesthesia Postprocedure Evaluation Filed: 04/20/2024 14:54 Note Text: POST ANESTHESIA EVALUATION NOTE : 1940 Procedure Summary Date: 04/20/24 Room / Location: [address] Anesthesia Start: 844 Anesthesia Stop: 1021 Procedure: PHACOEMULSIFICATION CATARACT IMPLANT INTRAOCULAR LENS W/O ENDOSCOPIC CYCLOPHOTOCOAGULATION (Left: Eye) Diagnosis: Total, mature senile cataract (Total, mature senile cataract [H25.89]) Surgeons: Wali Triana MD Responsible Provider: Therese Ruelas MD Anesthesia Type: MAC ASA Status: 4 Anesthesia Type: MAC Last Vitals Vitals Value Taken Time BP 162/73 04/20/24 0940 Temp 36.4 ?C (97.5 ?F) 04/20/24 0920 Pulse 54 04/20/24 0940 Resp 16 04/20/24 0940 SpO2 99 % 04/20/24 0940 Post Anesthesia Patient Status Patient Evaluation: bedside. Anticipated Disposition: phase 2 then home. Neurological Status: aware and responsive. Pulmonary Status: breathing comfortably on room air Airway Control: returned to baseline unsupported. Cardiovascular Status: stable. Pain Management: satisfactory to patient - multimodal analgesia pain management approach Postoperative Hydration: acceptable. Intraoperative Events: no significant anesthesia events Post Operative Nausea/Vomiting Status: no significant post operative nausea or vomiting Recommendation: continue current plan of care. Anesthesia Observations No Documentation SIGNATURE: Therese Ruelas MD PATIENT NAME: Gogo Ware DATE: April 20, 2024 TIME: 2:54 PM CSN: [id number] [facility] ANES PRE-OPon 04-20-2024 ANES PRE-OP HNO ID: [id number] Author: THERESE RUELAS MD Service: ? Author Type: Anesthesiologist Type: Anesthesia Preprocedure Evaluation Filed: 04/20/2024 08:27 Note Text: ANESTHESIOLOGY DAY OF SURGERY NOTE : 1940 Procedure Information Date/Time: 04/20/24834 Procedure: PHACOEMULSIFICATION CATARACT IMPLANT INTRAOCULAR LENS W/O ENDOSCOPIC CYCLOPHOTOCOAGULATION (Left: Eye) Location: [place] [address] / [facility] Surgeons: Wali Triana MD Estimated body mass index is 27.96 kg/m? as calculated from the following: Height as of 04/06/24: 165.1 cm (5' 5"). Weight as of 04/06/24: 76.2 kg (168 lb). Most recent hematocrit and potassium results: Hematocrit 42.1 07/14/2018 Potassium 4.3 03/24/2019 Relevant Problems CARDIO (+) 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 (HCC) (+) Essential (primary) hypertension (+) Severe aortic stenosis by prior echocardiogram Cardiovascular (+) Mixed hyperlipidemia I - PHYSICAL EVALUATION AIRWAY Patient intubated: No. Tracheostomy tube not present Mallampati: III. TM distance: >3 FB. Neck ROM: full ROM without neurological symptoms. Mouth opening: adequate. Short neck: no. Thick neck: no II - ANESTHESIA PLAN ASA Score: 4 Anesthetic Plan: MAC NPO Status: adequate Anesthetic plan additional comments: Called and spoke at length with patient.Patient with severe , but after extensive questioning, denies any symptoms of dyspnea, CP, dizziness, etc. She desires to proceed with her cataract surgery before getting any cardiac treatment. I have discussed with her that this does increase her risk with anesthesia to have severe although the fact that she is asymptomatic is reassuring. Will proceed with cataract surgery under block and MAC today, however, she has been referred to the cardiologists here for further evaluation for possible TAVR.. Beta Madhu Monitoring Plan Monitoring plan: standard ASA. Post Procedure Analgesic Plan Postoperative analgesic plan: multimodal analgesia. Informed Consent Anesthetic risks, benefits, alternatives, personnel and consent discussed: yes. Patient / Responsible Alliance Party agrees to proceed: yes Patient / Surrogate agrees to blood products: blood products not planned Significant changes in the patient condition since the History and Physical, not otherwise documented in primary service progress note: no. Potential Anesthesia issues that may suggest increased risk of complications or contraindication to planned procedure: surgical field avoidance. field avoidance. The anesthetic will be complicated due to field avoidance because the surgical procedure will be around the airway (head, neck, or shoulder girdle). There will be no direct access to the patient's airway therefore increasing the technical difficulty. Vitals Value Taken Time BP 169/74 04/20/24 0759 Pulse 55 04/20/24 0759 Resp 16 04/20/24758 Temp 36.1 ?C (97 ?F) 04/20/24 075 SpO2 99 % 04/20/24758 Facility-Administered Medications as of 04/20/2024 Medication Dose Route Frequency lactated ringers iv infusion 30 mL/hr INTRAVENOUS CONTINUOUS [COMPLETED] lidocaine 4% 1 Drop ophthalmic solution (XYLOCAINE) 1 Drop LEFT EYE q 5 MIN [COMPLETED] tropicamide 0.5% - cyclopentolate 0.5% - PHENYLephrine 2.5% ophthalmic syringe 1 Drop LEFT EYE q 5 MIN acetaminophen 650 mg tab(s) (TYLENOL) 650 mg ORAL PRN Outpatient Medications as of 04/20/2024 Medication Sig carvedilol (COREG) 12.5 mg tablet Take 1 tablet by mouth twice daily with meals. aspirin, enteric coated (ASPIRIN, ENTERIC COATED) 81 mg EC tablet Take 81 mg by mouth once daily. valsartan (DIOVAN) 160 mg tablet Take 1 tablet by mouth once daily. (Patient taking differently: Take 80 mg by mouth once daily.) atorvastatin (LIPITOR) 40 mg tablet Take 1 tablet by mouth once daily. brimonidine (ALPHAGAN) 0.2 % ophthalmic solution Use 2 Drops in both eyes twice daily. DORZOLAMIDE HCL/TIMOLOL MALEAT (DORZOLAMIDE-TIMOLOL OPHTHALMIC) Use 1 Drop in eyes twice daily. temazepam (RESTORIL) 30 mg cap Take 30 mg by mouth at bedtime as needed. latanoprost (XALATAN) 0.005 % ophthalmic solution Use 1 Drop in both eyes daily at bedtime. I have interviewed and examined the patient. I have reviewed the medical record and/or the pre-anesthesia evaluation, pertinent labs, and test results. This contains updated information obtained within 48 hours of Surgery/Procedure. SIGNATURE: Therese Ruelas MD PATIENT NAME: Gogo Ware DATE: April 20, 2024 TIME: 8:06 AM CSN: [id number] [facility] OPERATIVE NOon 04-20-2024 OPERATIVE NO HNO ID: [id number] Author: WALI TRIANA MD Service: Ophthalmology Author Type: Physician Type: Operative Report Filed: 04/20/2024 10:46 Note Text: Log ID: [id number] NAME: Gogo Ware SURGERY START TIME: 9:00 AM SURGERY END TIME: 9:14 AM SURGERY/PROCEDURE DATE: 04/20/2024 SURGEON(S)/WIRE INSPECTOR(S): Surgeon(s) and Role: * Wali Triana MD - Primary * Chandra More MD - Resident - Assisting PROCEDURE: Cataract Extraction by Phacoemulsification with Posterior Chamber Intraocular Lens Implantation of the left eye IMPLANTS: Implant Name Type Inv. Item Serial No. Television Newsc[employer] Director Lot No. LRB No. Used Action Model No. [id number] [employer] - [id number] Intraocular Lens [id number] [employer] [id number] [employer] Left 1 Implanted [id number] DIAGNOSIS: Senile nuclear cataract left eye ANESTHESIA: Retrobulbar solution with 3% chloroprocaine left eye. COMPLICATIONS: None ESTIMATED BLOOD LOSS: Less than 1cc SPECIMENS: None DESCRIPTION OF PROCEDURE: Prior to the surgery, the benefits and risks of the surgery were discussed at length, including the potential risk of post-operative pain, decreased vision, corneal edema, glaucoma, infection, need for glasses, and/or need for further surgery. Signed informed consent was obtained at this time. The patient was transferred to the operating suite and laid supine on the operating room table. Retrobulbar anesthesia was then administered to the operative eye with the staff anesthesiologist.The patient was then prepped and draped in sterile fashion for ophthalmic surgery of the left eye. A lid speculum was placed in the operated eye. A paracentesis was created 45-degrees away (clock-arevalo) from the planned main incision site using a supersharp blade and 0.12 forceps. Supplemental intracameral lidocaine (1%, non-preserved) was injected into the anterior chamber for local anesthesia. Viscoeslastic was then injected into the anterior chamber to deepen it. A three-stage temporal clear corneal incision was then created using a 2.4mm keratome. The anterior capsulotomy was then performed. A cystitome was used to create a tear in the anterior capsule of the crystalline lens. The Utrada forceps were then used to manipulate this tear into a continuous curvilinear capsulorrhexis. Once this was completed, hydrodissection was performed using balanced salt solution on a canula. A posterior fluid wave was noted during hydrodissection. Adequate rotation of the lens nucleus was confirmed prior to proceeding. Phacoemulsification of the lens nucleus was then begun. The phaco machine was set on sculpt mode and inserted into the eye. The lens nucleus was grooved and rotated in a cross-arevalo fashion. Once grooving was completed, the nucleus was split into quadrants using a bimanual technique. The phaco machine was then set on quadrant removal mode. The phaco tip was used to engage each nuclear quadrant, bring it to the pupillary center, and phacoemulsify it. Residual epi-nuclear material was removed from the capsular bag using epinucleus mode. Next, the irrigation and aspiration handpiece was connected, set on cortex mode, and inserted into the eye. The IA handpiece was used to remove residual cortical material from the capsular bag. The machine was then set on faroese mode and the IA handpiece was used to gently remove cortical debris from the posterior capsule. Viscoelastic was then injected into the capsular bag to deepen it. The IOL injector was then prepared. The IOL injector was inserted into the eye and the IOL was injected into the capsular bag. A Sinsky hook was used to rotate and position the IOL such that both haptics were confirmed to be in the capsular bag. The IA handpiece was re-inserted into the eye and used to remove residual viscoelastic material. The chamber was reformed with balanced salt solution. 0.1 mL of 1mg/0.1mL cefuroxime was injected into the anterior chamber. The wounds were carefully checked with a Weck-Malika spear and found to be watertight. Topical maxitrol ointment was instilled into the operated eye and the eye was patched and shielded. The patient was transferred to the recovery room in stable condition. The patient has an appointment to follow-up at the [facility] tomorrow. I/primary surgeon/proceduralist performed the entire procedure. I have reviewed the images and report from the Ophthalmic Biometry 04/20/2024 to determine the Intraocular lens Power Calculation for the IOL lens implant. I have interpreted and agree with the calculation of the IOL as listed below. Signed, Wali Triana MD [facility] 04-16-2024 CNPN Telephone (IMOPMN) GOGO WARE ([id number]) 1940 F Date Time Provider Department 04/16/24 BERTA RICH [facility] During your visit today, we recorded the following information about you: Berta Rich PA-C 04/16/2024 2:58 PM Signed Referral sent to severe aortic stenosis. Pt would like to proceed with TAVR. Allergies As of Date: 04/16/2024 (No Known Allergies) Date Reviewed: 04/07/2024 Reviewed by: Dorothy Han APRN.MEDICAL RECORDS SPECIALIST - Fully Assessed Reason for Visit: Concessions Manager - Other [3602] Primary Visit Diagnosis:Aortic valve stenosis, etiology of cardiac valve disease unspecified [I35.0] Order(s):CONSULT TO CARDIOLOGY [9004] Order #: [id number]: 1 FUTURE Prescriptions as of 04/16/2024 - moxifloxacin (VIGAMOX) 0.5 % ophthalmic solution Use 1 Drop in the left eye four times daily. - prednisoLONE acetate (PRED FORTE) 1 % ophthalmic suspension Use 1 Drop in the left eye four times daily for 7 days, THEN 1 Drop three times a day for 7 days, THEN 1 Drop two times a day for 7 days, THEN 1 Drop once daily for 7 days. - keTORolac (ACULAR) 0.5 % ophthalmic solution Use 1 Drop in the left eye four times daily for 14 days. - carvedilol (COREG) 12.5 mg tablet Take 1 tablet by mouth twice daily with meals. - valsartan (DIOVAN) 160 mg tablet Take 1 tablet by mouth once daily. - atorvastatin (LIPITOR) 40 mg tablet Take 1 tablet by mouth once daily. - brimonidine (ALPHAGAN) 0.2 % ophthalmic solution Use 2 Drops in both eyes twice daily. - DORZOLAMIDE HCL/TIMOLOL MALEAT (DORZOLAMIDE-TIMOLOL OPHTHALMIC) Use 1 Drop in eyes twice daily. - aspirin, enteric coated (ASPIRIN, ENTERIC COATED) 81 mg EC tablet Take 81 mg by mouth once daily. - temazepam (RESTORIL) 30 mg cap Take 30 mg by mouth at bedtime as needed. - latanoprost (XALATAN) 0.005 % ophthalmic solution Use 1 Drop in both eyes daily at bedtime. Meds Comments as of 01/05/2013: PT STATES SHE USES ANOTHER DROP, GREEN TOP, AT NIGHT OU Problem List As Of Date 04/16/2024 Noted Resolved Mixed hyperlipidemia [E78.2] 02/26/2019 Essential (primary) hypertension [I10] 09/09/2017 Coronary artery disease involving [place] guo*04/07/2024 Insomnia [G47.00] 04/07/2024 Glaucoma [H40.9] 04/07/2024 Severe aortic stenosis by prior echocardiogram *04/07/2024 Encounter Status:Closed by BERTA RICH I on 04/16/24 [facility] ECHOon 04-15-2024 Echocardiography Echocardiography Rep ort: Transthoracic Echo [facility] Date of service: 04/15/2024 11:23:27 AM PROFESSOR OF ARCHAEOLOGY Ordering physician: AZUL MADRIGAL Indication: Initial evaluation valvular heart disease Technologist: Josephine Whitney RD Interpreting physician: Mavis Judge MD PATIENT: Name: MRS. GOGO WARE : 1940 Age: 84 years Gender: F History of hypertension, dyslipidemia and coronary artery disease. Primary rhythm: sinus. Height: 165.10 cm BSA: 1.87 m Weight: 76.20 kg BMI: 28.0 kg/m Heart rate 65 bpm Blood pressure 156/75 mmHg Technically difficult exam due to body habitus. Color Doppler was utilized to interrogate the cardiac valves assessed and spectral Doppler was utilized to determine the flow velocities and pressure gradients reported in this exam. MEASUREMENTS: Value Indexed Normal Max aortic dimension 3.5 cm Ao < 3.8 Left atrial volume 56 ml (biplane A-L) 30 ml/m Abigail <= 34 LV ID (diastole) 3.2 cm (2D) 1.72 cm/m LV ID (systole) 2.6 cm (2D) 1.37 cm/m IVS, leaflet tips 1.2 cm (2D) Posterior wall thickness 1.2 cm (2D) Left ventricular mass 117 g (2D) 63 g/m LV stroke volume 62 ml (2D biplane) LVOT stroke volume 56 ml 31 ml/m LV end diastolic volume 98 ml (2D biplane) 52.5 ml/m 29<=EDVi<62 LV end systolic volume 36 ml (2D biplane) 19.1 ml/m Ejection Fraction 64 % (2D biplane) EF > 54 FINDINGS: LEFT VENTRICLE The left ventricle is normal in size. There is mild concentric left ventricular hypertrophy. Left ventricular systolic function is normal. Grade I left ventricular diastolic dysfunction. Mitral annular lateral E/e': 11.7. Mitral annular septal E/e': 11.7. Wall Motion: All scored segments are normal. RIGHT VENTRICLE The right ventricle is normal in size. Right ventricular systolic function is normal. RV systolic tissue Doppler velocity is 14.0 cm/s. Tricuspid annular displacement is 2.6 cm. Estimated right ventricular systolic pressure is not reported due to an insufficient tricuspid regurgitation signal. Estimated right atrial pressure is 3 mmHg (although IVC not seen). LEFT ATRIUM The left atrial cavity is normal in size. Pulmonary Veins: The pulmonary venous pattern showed normal systolic flow. RIGHT ATRIUM The right atrial cavity is normal in size. Inferior Vena Cava: The inferior vena cava appears normal measuring 1.6 cm. MITRAL VALVE There is mild mitral annular calcification observed posterior. There is trace (trace - 1+) mitral valve regurgitation. The pressure half time is 96 msec. The peak mitral E/A ratio is 0.72. The average mitral E/e' ratio is 11.7. The mitral flow deceleration time is 330 msec. TRICUSPID VALVE The tricuspid valve leaflets are structurally normal. There is trace tricuspid valve regurgitation. AORTIC VALVE There is severe aortic valve stenosis caused by calcified valve and restricted opening. There is trace (trace - 1+) aortic valve regurgitation. There is severe thickening. There is severe calcification. The peak gradient is 99 mmHg (peak velocity = 498.3 cm/s). The mean gradient is 57 mmHg. The LVOT mean velocity is 60.5 cm/s. The LVOT diameter is 1.8 cm. The aortic VTI is 125.8 cm. The mean velocity in the aortic valve is 359.2 cm/s. The dimensionless valve index is 0.17. AV area is 0.45 cm (0.24 cm /m ) by continuity, VTI. The LVOT stroke volume index is 31 ml/m . PULMONIC VALVE The pulmonic valve cusps are structurally normal. There is trace pulmonic valve regurgitation. AORTA The visualized aorta is normal in size. Measurements - Mid ascending aorta 3.5 cm. PERICARDIUM There is no pericardial effusion. There is an epicardial fat pad. CONCLUSIONS: - Technically difficult exam due to body habitus. - Exam indication: Initial evaluation valvular heart disease - The left ventricle is normal in size. There is mild concentric left ventricular hypertrophy. Left ventricular systolic function is normal. EF = 64 5% (2D biplane) Grade I left ventricular diastolic dysfunction. - The right ventricle is normal in size. Right ventricular systolic function is normal. - There is severe aortic valve stenosis caused by calcified valve and restricted opening. AV area is 0.45 cm (0.24 cm /m ) by continuity, VTI. The peak gradient is 99 mmHg, the mean gradient is 57 mmHg and the dimensionless valve index is 0.17. - The patient has not had a prior CC echocardiographic exam for comparison. * * * Final * * * [employer] Medical Image : [id number] oDynamicsSISUID [facility] GOGO WARE ([id number]) 1940 F Date Time Provider Department 04/13/24 BERTA RICH [facility] During your visit today, we recorded the following information about you: Berta Rich, SCOTTIE 04/13/2024 8:17 AM Signed Called pt, and gave instructions and directions for echo on 04/15/24. Allergies As of Date: 04/13/2024 (No Known Allergies) Date Reviewed: 04/07/2024 Reviewed by: Dorothy Han APRN.MEDICAL RECORDS SPECIALIST - Fully Assessed Reason for Visit: Concessions Manager - Other [360] Prescriptions as of 04/13/2024 - moxifloxacin (VIGAMOX) 0.5 % ophthalmic solution Use 1 Drop in the left eye four times daily. - prednisoLONE acetate (PRED FORTE) 1 % ophthalmic suspension Use 1 Drop in the left eye four times daily for 7 days, THEN 1 Drop three times a day for 7 days, THEN 1 Drop two times a day for 7 days, THEN 1 Drop once daily for 7 days. - keTORolac (ACULAR) 0.5 % ophthalmic solution Use 1 Drop in the left eye four times daily for 14 days. - carvedilol (COREG) 12.5 mg tablet Take 1 tablet by mouth twice daily with meals. - valsartan (DIOVAN) 160 mg tablet Take 1 tablet by mouth once daily. - atorvastatin (LIPITOR) 40 mg tablet Take 1 tablet by mouth once daily. - brimonidine (ALPHAGAN) 0.2 % ophthalmic solution Use 2 Drops in both eyes twice daily. - DORZOLAMIDE HCL/TIMOLOL MALEAT (DORZOLAMIDE-TIMOLOL OPHTHALMIC) Use 1 Drop in eyes twice daily. - aspirin, enteric coated (ASPIRIN, ENTERIC COATED) 81 mg EC tablet Take 81 mg by mouth once daily. - temazepam (RESTORIL) 30 mg cap Take 30 mg by mouth at bedtime as needed. - latanoprost (XALATAN) 0.005 % ophthalmic solution Use 1 Drop in both eyes daily at bedtime. Meds Comments as of 01/05/2013: PT STATES SHE USES ANOTHER DROP, GREEN TOP, AT NIGHT OU Problem List As Of Date 04/13/2024 Noted Resolved Mixed hyperlipidemia [E78.2] 02/26/2019 Essential (primary) hypertension [I10] 09/09/2017 Coronary artery disease involving [place] guo*04/07/2024 Insomnia [G47.00] 04/07/2024 Glaucoma [H40.9] 04/07/2024 Severe aortic stenosis by prior echocardiogram *04/07/2024 Encounter Status:Closed by BERTA RICH I on 04/13/24 [facility] 04-06-2024 [facility]OPHT[facility] GOGO WARE ([id number]) 1940 F Date Time Provider Department 04/06/24 WALI TRIANA [facility] During your visit today, we recorded the following information about you: Idalia Bermeo 04/06/2024 3:00 PM Signed Patient's friend calling to make sure she won't need to take drops BEFORE surgery. Also, if she will be on drops after surgery will she be given those or will you send Rx now to pharmacy? Surgery 04/20/24 Wali Triana MD filed at 01/17/2024 11:03 AM Status: Signed Encounter Diagnosis ICD-10-CM 1. 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 Primary open angle glaucoma (POAG) of left eye, severe stage H40.[address] Tarun Mcgowan for cat eval Cataract Presurgical Documentation Current Visual Acuity Right Eye Distance CC NLP Left Eye Distance CC 20/40 Best Corrected Vision Left Eye 20/40- Glare Testing: Left Eye Off 20/50 Left Eye Low 20/80 Left Eye Medium 20/125 Left Eye High 20/150 Visual Function: Gogo Ware states that the decline in vision from the cataract impedes her abilities as listed in the HPI, as well as other activities of daily living. Gogo Ware has confirmed that she is no longer able to function adequately on a day-to-day basis because of her current visual condition. Further, it is my medical opinion that the cataract is the primary cause, or at least a significantly contributory cause of her visual dysfunction. With uncomplicated cataract surgery and lens implantation, it is my expectation that her visual function and quality of life will improve, significantly. The risks, benefits, alternatives, personnel and complications of cataract surgery with lens implantation were discussed with Gogo Ware in detail. she appeared to understand and asked that I proceed with plans for surgery. Assessment: Visually significant cataract BOTH EYES. Discussed IOL options - patient elects monofocal IOL - Dilation: 7mm - Flomax/alpha-madhu? 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 Mcgowan -Reports lasers in both eye for glaucoma -OD NLP with phacomorphic component and NVI Dry eye syndrome OU Blepharitis OU -Rec AFTs and warm compress offer phaco/IOL OS nervous about surgery favor LMA as brunescent cataract, + PXF discussed increased risk of multiple surgeries, possible PPV jg to perform target plano Wali Triana MD 04/06/2024 8:31 PM Signed I sent her prescriptions to her pharmacy but nothing starts until after the surgery is complete (the day of surgery) Idalia Bermeo 04/07/2024 8:39 AM Signed Informed patient Allergies As of Date: 04/06/2024 (No Known Allergies) Date Reviewed: 04/06/2024 Reviewed by: Dorothy Han APRN.MEDICAL RECORDS SPECIALIST - Fully Assessed Reason for Visit: Patient Question [8077] Order(s):moxifloxacin (VIGAMOX) 0.5 % ophthalmic solutionUse 1 Drop in the left eye four times daily.Disp: 3 mLRfl: 0 prednisoLONE acetate (PRED FORTE) 1 % ophthalmic suspensionUse 1 Drop in the left eye four times daily for 7 days, THEN 1 Drop three times a day for 7 days, THEN 1 Drop two times a day for 7 days, THEN 1 Drop once daily for 7 days.Disp: 5 mLRfl: 1 keTORolac (ACULAR) 0.5 % ophthalmic solutionUse 1 Drop in the left eye four times daily for 14 days.Disp: 5 mLRfl: 0 Prescriptions as of 04/07/2024 - moxifloxacin (VIGAMOX) 0.5 % ophthalmic solution Use 1 Drop in the left eye four times daily. - prednisoLONE acetate (PRED FORTE) 1 % ophthalmic suspension Use 1 Drop in the left eye four times daily for 7 days, THEN 1 Drop three times a day for 7 days, THEN 1 Drop two times a day for 7 days, THEN 1 Drop once daily for 7 days. - keTORolac (ACULAR) 0.5 % ophthalmic solution Use 1 Drop in the left eye four times daily for 14 days. - carvedilol (COREG) 12.5 mg tablet Take 1 tablet by mouth twice daily with meals. - valsartan (DIOVAN) 160 mg tablet Take 1 tablet by mouth once daily. - atorvastatin (LIPITOR) 40 mg tablet Take 1 tablet by mouth once daily. - brimonidine (ALPHAGAN) 0.2 % ophthalmic solution Use 2 Drops in both eye (more content not included)... [facility] CHAZGOGO Stanford ([id number]) 1940 F Date Time Provider Department 04/06/24 DOROTHY HAN During your visit today, we recorded the following information about you: Dorothy Han APRN.JACEY 04/06/2024 1:57 PM Signed Please request last cardiac OV and testing from [facility]. DOS 04/20/2024. Amrita Perea LPN 04/06/2024 2:17 PM Signed Fax request sent to [facility] requesting last office visit and cardiac testing for upcoming surgery 04/20/24. .GISELE Nation Jessica, LPN 04/06/2024 3:08 PM Signed Received last office visit and cardiac testing. Original sent to [facility] through Onbase scanning. Amrita Perea LPN Allergies As of Date: 04/06/2024 (No Known Allergies) Date Reviewed: 04/06/2024 Reviewed by: Dorothy Han APRN.JACEY - Fully Assessed Reason for Visit: Request Outside Medical Records [[id number]] Prescriptions as of 04/06/2024 - carvedilol (COREG) 12.5 mg tablet Take 1 tablet by mouth twice daily with meals. - valsartan (DIOVAN) 160 mg tablet Take 1 tablet by mouth once daily. - atorvastatin (LIPITOR) 40 mg tablet Take 1 tablet by mouth once daily. - brimonidine (ALPHAGAN) 0.2 % ophthalmic solution Use 2 Drops in both eyes twice daily. - DORZOLAMIDE HCL/TIMOLOL MALEAT (DORZOLAMIDE-TIMOLOL OPHTHALMIC) Use 1 Drop in eyes twice daily. - aspirin, enteric coated (ASPIRIN, ENTERIC COATED) 81 mg EC tablet Take 81 mg by mouth once daily. - temazepam (RESTORIL) 30 mg cap Take 30 mg by mouth at bedtime as needed. - latanoprost (XALATAN) 0.005 % ophthalmic solution Use 1 Drop in both eyes daily at bedtime. Meds Comments as of 01/05/2013: PT STATES SHE USES ANOTHER DROP, GREEN TOP, AT NIGHT OU Problem List As Of Date: 04/06/2024 (None) Encounter Status:Closed by AMRITA PERAE on 04/06/24 Normal [facility] HISTORY PHYSICALon HISTORY PHYSICAL HNO ID: [id number] Author: DOROTHY HAN APRN.MEDICAL RECORDS SPECIALIST Service: ? Author Type: Nurse Practitioner Type: H&P Filed: 04/08/2024 14:15 Note Text: HISTORY AND PHYSICAL EXAMINATION SERVICE DATE: 04/06/2024 SERVICE TIME: 9:23 AM PRIMARY CARE PHYSICIAN: No primary care provider on file. Assessment Patient has the following medical conditions which may affect guille-operative course: Insomnia Assessment: controlled on rx Essential (primary) hypertension Assessment: controlled on rx Last 14 BP Last 14 Encounter BP Readings: Date: BP: 04/06/2024 124/80 03/24/2019 182/94 10/01/2018 183/85 04/01/2018 134/80 12/30/2017 140/62 12/23/2017 162/74 12/23/2017 142/82[ (from Extended Vitals)[ 08/11/2015 138/76 07/28/2015 162/74[bP angie average[ 11/01/2014 148/82 10/29/2014 150/82 Mixed hyperlipidemia Assessment: c/w statin Glaucoma Assessment: controlled on rx Severe aortic stenosis by prior echocardiogram Assessment: SEVERE, pt declined TAVR at last cardiac OV 03/26/24. Pt states she is asymptomatic.EMAIL TO ANESTHESIA. 03/16/2024 Eliana Whipple PA-C 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 (HCC) Assessment: moderate 3 vessel disease, pt denies any intervention. Pt denies any symptoms of angina. 03/16/2024 Eliana Whipple PA-C Mishra Activity Status Index: METS: Climb a flight of stairs or walk up a hill (5.50 METs) DASI Score: 5.5 Patient denies any chest pain or undue shortness of breath with the above physical activity. Clinical Frailty Scale: 3. Well, with treated comorbid disease STOP-Bang Score: Has or is being treated for high blood pressure Patient over 50 years old Denies snoring loudly Denies feeling tired, fatigued, or sleepy during the daytime Has not been observed to stop breathing or choking/gasping during sleep BMI less than or equal to 35 kg/m2 Does not have a large neck Non-male patient STOP-Bang Score: 2 [id number] Score: Age: >=75 Sex: female CHF history: No Hypertension history: Yes Stroke/TIA/thromboembolism history: No Vascular disease history: Yes Diabetes history: No [id number] Score: 5 ARISCAT Score: Age: >80 Preoperative SpO2: >=96% Respiratory infection in the last month: No Preoperative anemia: Yes Surgical incision: peripheral Duration of surgery: <2 hrs Emergency procedure: No ARISCAT Score: 27 ANESTHESIA FINDINGS: Intubation History: No history of difficult intubation Significant Anesthesia Considerations: none Airway History: No history of difficult airway I - PHYSICAL EVALUATION AIRWAY Patient intubated: No. Tracheostomy tube not present Mallampati: III. TM distance: >3 FB. Neck ROM: full ROM without neurological symptoms. Mouth opening: adequate. Short neck: no. Thick neck: yes Dawson present: no Lip Bite Test: I Microretrognathia/Micronagthi a/Recessed Chin: No DENTAL Dental findings: teeth intact. Additional comments: +crowns/back. II - ANESTHESIA PLAN Anesthetic Plan: other Beta Madhu Monitoring Plan Post Procedure Analgesic Plan Informed Consent Anesthetic risks, benefits, alternatives, personnel and consent discussed: yes. Patient / Responsible Alliance Party agrees to proceed: yes Patient / Surrogate agrees to blood products: blood products not planned Discussed the possibility of lip / dental damage: yes Prepared for Surgery: optimally prepared for surgery, pending [see comment]. Email to anesthesia to review chart SEVERE aortic stenosis 04/07/2024 Dr. Dontrell Ruelas I guess, as long as you feel that she understands and acknowledges the disease process that she has and the risk of refusing surgery, then we should go ahead with cataract surgery. There's nothing that says you have to have any treatment that a physician recommends. If she has been followed by cardiology and has refused any intervention, And she's competent to make that decision, then we should proceed. CONSULTS: The following consults have been initiated at this time: anesthesia. Planned Anesthetic: other anesthesia choice The Following Tests/Procedures Have Been Initiated: No orders of the defined types were placed in this encounter. REASON FOR VISIT: Gogo Ware is a 84 year old female who is scheduled for Procedure(s): PHACOEMULSIFICATION CATARACT IMPLANT INTRAOCULAR LENS W/O ENDOSCOPIC CYCLOPHOTOCOAGULATION (Left) at the request of Wali Calvert MD for consultation. My final recommendation will be communicated back to the requesting physician by way of shared medical record or letter. Subjective 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) Insomnia Glaucoma Severe Aortic Stenosis By Prior Echocardiogram COVID-19 Immunization Statu (more content not included)... Normal [facility] Absolute lymphocyte countOrd ered By: Eh Huddleston on 09-30-2023 Lymphocytes Auto (Unsp spec) [#/Vol] 1.61 10*3/uL 0.83-4.51 [facility] Basophil percentageOrdered B y: Eh Ashbyok on 09-30-2023 Basophils/100 WBC (Bld) 0.4 % 0-1 [facility] Bilirubin [Mass/Vol] 0.60 mg/dL 0.20-1.00 [facility] Comment on above: For patients on eltr ombopag therapy, use of Dimension [place] TBIL is not recommended. Chloride [Moles/Vol] 107 mmol/L 98-107 [facility] Cholesterol [Mass/Vol] 164 mg/dL <200 [facility] Comment on above: <200 mg/dL Desirable 200-240 mg/dL Borderline >240 mg/dL High Risk Eosinophils/100 WBC (Bld) 0.8 % 0-5 [facility] Glucose [Mass/Vol] 117 mg/dL 74-106 [facility] Comment on above: Fasting Glucose resu lt from 100 to 125 mg/dL suggests IMPAIRED HOMEOSTASIS per A.D.A. criteria. Neutrophils (Bld) [#/Vol] 5.3 10*3/uL 2.0-7.7 [facility] Neutrophils/100 WBC (Bld) 70.5 % 47-70 [facility] Potassium [Moles/Vol] 4.0 mmol/L 3.5-5.1 [facility] Protein [Mass/Vol] 7.7 g/dL 6.4-8.2 [facility] Sodium [Moles/Vol] 139 mmol/L 136-145 [facility] Triglyceride [Mass/Vol] 123 mg/dL <199 [facility] Comment on above: The drugs N-Acetylcy steine and Metamizole may falsely depress this assay.Serum Triglycerides Reference Interval Normal <150 mg/dL Borderline high 150 - 199 mg/dL High 200 - 499 mg/dL Very High > or = 500 mg/dL WBC (Bld) [#/Vol] 7.5 10*3/uL 4.4-11.0 [facility] Blood erythrocytes count (nu mber/volume)Ordered By: Eh Huddleston on 09-30-2023 RBC (Bld) [#/Vol] 4.26 10*6/uL 4.2-5.4 [facility] Blood hemoglobin measurement (mass/volume)Ordered By: Eh Huddleston on 09-30-2023 Hemoglobin (Bld) [Mass/Vol] 13.1 g/dL 12.0-15.0 [facility] Blood lymphocytes/100 leukoc ytesOrdered By: Eh Huddleston on 09-30-2023 Lymphocytes/100 WBC (Bld) 21.6 % 19-41 [facility] Blood monocytes/100 leukocyt esOrdered By: Eh Huddleston on 09-30-2023 Monocytes/100 WBC (Bld) 6.4 % 0-10 [facility] Blood platelet mean volumeOr dered By: Eh Huddleston on 09-30-2023 Platelet mean volume (Bld) [Entitic vol] 11.2 fL 6.2-12.0 [facility] Determination of erythrocyte mean corpuscular volume (MCV)Ordered By: Eh Huddleston on 09-30-2023 MCV (RBC) [Entitic vol] 94.4 fL 81-99 [facility] Hematocrit Auto (Bld) [Volum e fraction]Ordered By: Eh Huddleston on 09-30-2023 Hematocrit (Bld) [Volume fraction] 40.2 % 37-47 [facility] Laboratory - Chemistry and C hemistry - challengeOrdered By: Eh Huddleston on 09-30-2023 ALP [Catalytic activity/Vol] 71 U/L 45-117 [facility] ALT [Catalytic activity/Vol] 22 U/L 13-56 [facility] CO2 [Moles/Vol] 25.0 mmol/L 21.0-32.0 [facility] Globulin (S) [Mass/Vol] 3.8 g/dL 2.2-4.2 [facility] Urea nitrogen/Creatinine [Mass ratio] 19.1 mg/mg 10-20 [facility] Laboratory - Hematology and Cell countsOrdered By: Eh Huddleston on 09-30-2023 Erythrocyte distribution width (RBC) [Entitic vol] 44.5 fL 35.1-43.9 [facility] Erythrocyte distribution width (RBC) [Ratio] 12.8 % 11.6-14.6 [facility] Immature granulocytes/100 WBC (Bld) 0.300 % 0.0-0.9 [facility] Comment on above: IG% - Immature Granu locytes (promyelocytes, myelocytes and metamyelocytes) > 1% indicates that a LEFT SHIFT is Present. MCH (RBC) [Entitic mass] 30.8 pg 27.0-32.0 [facility] Nucleated RBC/100 WBC (Bld) [Ratio] 0 % 0-5 [facility] MCHC Auto (RBC) [Mass/Vol]Or dered By: Eh Huddleston on 09-30-2023 MCHC (RBC) [Mass/Vol] 32.6 g/dL 32-36 [facility] No Panel InformationOrdered By: Eh Huddleston on 09-30-2023 Estimated GFR (MDRD) Amer 77 mL/min >60 [facility] Comment on above: GFR Calc Estimated GFR (MDRD) Non-Af Amer 64 mL/min >60 [facility] Comment on above: Non- GFR Calc Thyroid Stimulating Hormone (TSH) 1.37 uIU/mL 0.358-3.74 [facility] Vitamin D 25-Hydroxy 25.4 ng/mL [facility] Comment on above: Vitamin D 25(OH) Sta tus Range Deficiency <20 ng/mL (50nmol/L) Insufficiency 20 - 30 ng/mL (50 - 75 nmol/L) Sufficiency 30 - 100 ng/mL (75 - 250 nmol/L) Toxicity >100 ng/mL (>250 nmol/L) Platelets bldOrdered By: Eh Huddleston on 09-30-2023 Platelets (Bld) [#/Vol] 188 10*3/uL 150-450 [facility] Serum or plasma albumin susy urement (mass/volume)Ordered By: Eh uHddleston on 09-30-2023 Albumin [Mass/Vol] 3.9 g/dL 3.2-5.0 [facility] Serum or plasma albumin/glob ulin mass ratioOrdered By: Eh Huddleston 09-30-2023 Albumin/Globulin [Mass ratio] 1.0 {ratio} 0.9-2.4 [facility] Serum or plasma calcium susy urement (mass/volume)Ordered By: Eh Huddleston 09-30-2023 Calcium [Mass/Vol] 9.3 mg/dL 8.5-10.1 [facility] Serum or plasma cholesterol in HDL measurement (mass/volume)Ordered By: Eh Huddleston 09-30-2023 Cholesterol in HDL [Mass/Vol] 84 mg/dL >40 [facility] Comment on above: The drugs N-Acetylcy steine and Metamizole may falsely depress this assay. Reference Range HDL <40 mg/dL Low HDL Cholesterol HDL >or= 60 mg/dL High HDL Cholesterol Serum or plasma cholesterol in VLDL measurement (mass/volume)Ordered By: Eh Huddleston 09-30-2023 Cholesterol in VLDL [Mass/Vol] 25 mg/dL 5-40 [facility] Serum or plasma creatinine m easurement (mass/volume)Ordered By: Eh Huddleston 09-30-2023 Creatinine [Mass/Vol] 0.89 mg/dL 0.55-1.02 [facility] Comment on above: The validity of the calculated GFR & GFRAA in patients over 70 years has not been determined. Clinical correlation is essential. Serum or plasma low density lipoprotein (LDL) cholesterol measurement (mass/volume)Ordered By: Eh Huddleston 09-30-2023 Cholesterol in LDL [Mass/Vol] 55 mg/dL 0-130 [facility] Serum or plasma urea nitroge n measurement (mass/volume)Ordered By: Eh Huddleston 09-30-2023 Urea nitrogen [Mass/Vol] 17 mg/dL 7-18 [facility] Thin prep Papanicolaou smear with manual screeningOrdered By: Eh Huddleston on 09-30-2023 Thin prep Papanicolaou smear with manual screening 48 U/L 15-37 [facility] Thin prep Papanicolaou smear with manual screening 7 5-15 [facility] Absolute lymphocyte countOrd ered By: Dr. Huddleston on 03-28-2023 Lymphocytes Auto (Unsp spec) [#/Vol] 1.68 10*3/uL 0.83-4.51 [facility] Basophil percentageOrdered B y: Dr. Huddleston on 03-28-2023 Basophils/100 WBC (Bld) 0.4 % 0-1 [facility] Bilirubin [Mass/Vol] 0.40 mg/dL 0.20-1.00 [facility] Comment on above: For patients on eltr ombopag therapy, use of Dimension [place] TBIL is not recommended. Chloride [Moles/Vol] 110 mmol/L 98-107 [facility] Cholesterol [Mass/Vol] 146 mg/dL <200 [facility] Comment on above: <200 mg/dL Desirable 200-240 mg/dL Borderline >240 mg/dL High Risk Eosinophils/100 WBC (Bld) 2.1 % 0-5 [facility] Glucose [Mass/Vol] 104 mg/dL 74-106 [facility] Comment on above: Fasting Glucose resu lt from 100 to 125 mg/dL suggests IMPAIRED HOMEOSTASIS per A.D.A. criteria. Neutrophils (Bld) [#/Vol] 2.9 10*3/uL 2.0-7.7 [facility] Neutrophils/100 WBC (Bld) 55.5 % 47-70 [facility] Potassium [Moles/Vol] 4.3 mmol/L 3.5-5.1 [facility] Protein [Mass/Vol] 7.6 g/dL 6.4-8.2 [facility] Sodium [Moles/Vol] 141 mmol/L 136-145 [facility] Triglyceride [Mass/Vol] 112 mg/dL <199 [facility] Comment on above: The drugs N-Acetylcy steine and Metamizole may falsely depress this assay.Serum Triglycerides Reference Interval Normal <150 mg/dL Borderline high 150 - 199 mg/dL High 200 - 499 mg/dL Very High > or = 500 mg/dL WBC (Bld) [#/Vol] 5.2 10*3/uL 4.4-11.0 [facility] Blood erythrocytes count (nu mber/volume)Ordered By: Dr. Huddleston on 03-28-2023 RBC (Bld) [#/Vol] 3.83 10*6/uL 4.2-5.4 [facility] Blood hemoglobin measurement (mass/volume)Ordered By: Dr. Huddleston on 03-28-2023 Hemoglobin (Bld) [Mass/Vol] 11.9 g/dL 12.0-15.0 [facility] Blood lymphocytes/100 leukoc ytesOrdered By: Dr. Huddleston on 03-28-2023 Lymphocytes/100 WBC (Bld) 32.2 % 19-41 [facility] Blood monocytes/100 leukocyt esOrdered By: Dr. Huddleston on 03-28-2023 Monocytes/100 WBC (Bld) 9.4 % 0-10 [facility] Blood platelet mean volumeOr dered By: Dr. Huddleston on 03-28-2023 Platelet mean volume (Bld) [Entitic vol] 10.7 fL 6.2-12.0 [facility] Determination of erythrocyte mean corpuscular volume (MCV)Ordered By: Dr. Huddleston on 03-28-2023 MCV (RBC) [Entitic vol] 93.7 fL 81-99 [facility] Hematocrit Auto (Bld) [Volum e fraction]Ordered By: Dr. Huddleston on 03-28-2023 Hematocrit (Bld) [Volume fraction] 35.9 % 37-47 [facility] Laboratory - Chemistry and C hemistry - challengeOrdered By: Dr. Huddleston on 03-28-2023 ALP [Catalytic activity/Vol] 72 U/L 45-117 [facility] ALT [Catalytic activity/Vol] 21 U/L 13-56 [facility] CO2 [Moles/Vol] 25.0 mmol/L 21.0-32.0 [facility] Globulin (S) [Mass/Vol] 3.8 g/dL 2.2-4.2 [facility] Urea nitrogen/Creatinine [Mass ratio] 26.8 mg/mg 10-20 [facility] Laboratory - Hematology and Cell countsOrdered By: Dr. Huddleston on 03-28-2023 Erythrocyte distribution width (RBC) [Entitic vol] 46.4 fL 35.1-43.9 [facility] Erythrocyte distribution width (RBC) [Ratio] 13.5 % 11.6-14.6 [facility] Immature granulocytes/100 WBC (Bld) 0.400 % 0.0-0.9 [facility] Comment on above: IG% - Immature Granu locytes (promyelocytes, myelocytes and metamyelocytes) > 1% indicates that a LEFT SHIFT is Present. MCH (RBC) [Entitic mass] 31.1 pg 27.0-32.0 [facility] Nucleated RBC/100 WBC (Bld) [Ratio] 0 % 0-5 [facility] MCHC Auto (RBC) [Mass/Vol]Or dered By: Dr. Huddleston on 03-28-2023 MCHC (RBC) [Mass/Vol] 33.1 g/dL 32-36 [facility] No Panel InformationOrdered By: Dr. Huddleston on 03-28-2023 Estimated GFR (MDRD) Amer 81 mL/min >60 [facility] Comment on above: GFR Calc Estimated GFR (MDRD) Non-Af Amer 67 mL/min >60 [facility] Comment on above: Non- GFR Calc Thyroid Stimulating Hormone (TSH) 1.60 uIU/mL 0.358-3.74 [facility] Vitamin D 25-Hydroxy 32.1 ng/mL [facility] Comment on above: Vitamin D 25(OH) Sta tus Range Deficiency <20 ng/mL (50nmol/L) Insufficiency 20 - 30 ng/mL (50 - 75 nmol/L) Sufficiency 30 - 100 ng/mL (75 - 250 nmol/L) Toxicity >100 ng/mL (>250 nmol/L) Platelets bldOrdered By: Dr. Huddleston on 03-28-2023 Platelets (Bld) [#/Vol] 182 10*3/uL 150-450 [facility] Serum or plasma albumin susy urement (mass/volume)Ordered By: Dr. Huddleston on 03-28-2023 Albumin [Mass/Vol] 3.8 g/dL 3.2-5.0 [facility] Serum or plasma albumin/glob ulin mass ratioOrdered By: Dr. Huddleston on 03-28-2023 Albumin/Globulin [Mass ratio] 1.0 {ratio} 0.9-2.4 [facility] Serum or plasma calcium susy urement (mass/volume)Ordered By: Dr. Huddleston on 03-28-2023 Calcium [Mass/Vol] 9.1 mg/dL 8.5-10.1 [facility] Serum or plasma cholesterol in HDL measurement (mass/volume)Ordered By: Dr. Huddleston on 03-28-2023 Cholesterol in HDL [Mass/Vol] 85 mg/dL >40 [facility] Comment on above: The drugs N-Acetylcy steine and Metamizole may falsely depress this assay. Reference Range HDL <40 mg/dL Low HDL Cholesterol HDL >or= 60 mg/dL High HDL Cholesterol Serum or plasma cholesterol in VLDL measurement (mass/volume)Ordered By: Dr. Hdudleston on 03-28-2023 Cholesterol in VLDL [Mass/Vol] 22 mg/dL 5-40 [facility] Serum or plasma creatinine m easurement (mass/volume)Ordered By: Dr. Huddleston on 03-28-2023 Creatinine [Mass/Vol] 0.86 mg/dL 0.55-1.02 [facility] Comment on above: The validity of the calculated GFR & GFRAA in patients over 70 years has not been determined. Clinical correlation is essential. Serum or plasma low density lipoprotein (LDL) cholesterol measurement (mass/volume)Ordered By: Dr. Huddleston on 03-28-2023 Cholesterol in LDL [Mass/Vol] 39 mg/dL 0-130 [facility] Serum or plasma urea nitroge n measurement (mass/volume)Ordered By: Dr. Huddleston on 03-28-2023 Urea nitrogen [Mass/Vol] 23 mg/dL 7-18 [facility] Thin prep Papanicolaou smear with manual screeningOrdered By: Dr. Huddleston on 03-28-2023 Thin prep Papanicolaou smear with manual screening 54 U/L 15-37 [facility] Thin prep Papanicolaou smear with manual screening 6 5-15 [facility] Absolute lymphocyte counton 09-25-2022 Lymphocytes Auto (Unsp spec) [#/Vol] 1.83 10*3/uL 0.83-4.51 [facility] Work Phone: Basophil percentageon 2021 Basophils/100 WBC (Bld) 0.5 % 0-1 [facility] Work Phone: Bilirubin [Mass/Vol] 0.50 mg/dL 0.20-1.00 [facility] Work Phone: [phone] Comment on above: For patients on eltr ombopag therapy, use of Dimension [place] TBIL is not recommended. Chloride [Moles/Vol] 104 mmol/L 98-107 [facility] Work Phone: Cholesterol [Mass/Vol] 163 mg/dL <200 [facility] Work Phone: [phone] Comment on above: <200 mg/dL Desirable 200-240 mg/dL Borderline >240 mg/dL High Risk Eosinophils/100 WBC (Bld) 4.1 % 0-5 [facility] Work Phone: Glucose [Mass/Vol] 94 mg/dL 74-106 [facility] Work Phone: Neutrophils (Bld) [#/Vol] 3.2 10*3/uL 2.0-7.7 [facility] Work Phone: Neutrophils/100 WBC (Bld) 55.7 % 47-70 [facility] Work Phone: Potassium [Moles/Vol] 3.9 mmol/L 3.5-5.1 [facility] Work Phone: Protein [Mass/Vol] 7.2 g/dL 6.4-8.2 [facility] Work Phone: Sodium [Moles/Vol] 139 mmol/L 136-145 [facility] Work Phone: Triglyceride [Mass/Vol] 71 mg/dL <199 [facility] Work Phone: [phone] Comment on above: The drugs N-Acetylcy steine and Metamizole may falsely depress this assay.Serum Triglycerides Reference Interval Normal <150 mg/dL Borderline high 150 - 199 mg/dL High 200 - 499 mg/dL Very High > or = 500 mg/dL WBC (Bld) [#/Vol] 5.8 10*3/uL 4.4-11.0 [facility] Work Phone: [phone] Blood erythrocytes count (nu mber/volume)on 09-25-2022 RBC (Bld) [#/Vol] 4.00 10*6/uL 4.2-5.4 [facility] Work Phone: [phone] Blood hemoglobin measurement (mass/volume)on 09-25-2022 Hemoglobin (Bld) [Mass/Vol] 12.5 g/dL 12.0-15.0 [facility] Work Phone: Blood lymphocytes/100 leukoc yteson 09-25-2022 Lymphocytes/100 WBC (Bld) 31.6 % 19-41 [facility] Work Phone: Blood monocytes/100 leukocyt eson 09-25-2022 Monocytes/100 WBC (Bld) 7.9 % 0-10 [facility] Work Phone: Blood platelet mean volumeon 09-25-2022 Platelet mean volume (Bld) [Entitic vol] 11.0 fL 6.2-12.0 [facility] Work Phone: [phone] Determination of erythrocyte mean corpuscular volume (MCV)on 09-25-2022 MCV (RBC) [Entitic vol] 93.3 fL 81-99 [facility] Work Phone: Hematocrit Auto (Bld) [Volum e fraction]on 09-25-2022 Hematocrit (Bld) [Volume fraction] 37.3 % 37-47 [facility] Work Phone: [phone] Laboratory - Chemistry and C hemistry - challengeon 09-25-2022 ALP [Catalytic activity/Vol] 56 U/L 45-117 [facility] Work Phone: [phone] ALT [Catalytic activity/Vol] 23 U/L 13-56 [facility] Work Phone: CO2 [Moles/Vol] 25.0 mmol/L 21.0-32.0 [facility] Work Phone: Globulin (S) [Mass/Vol] 3.6 g/dL 2.2-4.2 [facility] Work Phone: Urea nitrogen/Creatinine [Mass ratio] 24.6 mg/mg 10-20 [facility] Work Phone: Laboratory - Hematology and Cell countson 09-25-2022 Erythrocyte distribution width (RBC) [Entitic vol] 45.9 fL 35.1-43.9 [facility] Work Phone: Erythrocyte distribution width (RBC) [Ratio] 13.3 % 11.6-14.6 [facility] Work Phone: Immature granulocytes/100 WBC (Bld) 0.200 % 0.0-0.9 [facility] Work Phone: Comment on above: IG% - Immature Granu locytes (promyelocytes, myelocytes and metamyelocytes) > 1% indicates that a LEFT SHIFT is Present. MCH (RBC) [Entitic mass] 31.3 pg 27.0-32.0 [facility] Work Phone: Nucleated RBC/100 WBC (Bld) [Ratio] 0 % 0-5 [facility] Work Phone: MCHC Auto (RBC) [Mass/Vol]on 09-25-2022 MCHC (RBC) [Mass/Vol] 33.5 g/dL 32-36 [facility] Work Phone: No Panel Informationon 09-25 Estimated GFR (MDRD) Amer 92 mL/min >60 [facility] Work Phone: Comment on above: GFR Calc Estimated GFR (MDRD) Non-Af Amer 76 mL/min >60 [facility] Work Phone: Comment on above: Non- GFR Calc Thyroid Stimulating Hormone (TSH) 1.44 uIU/mL 0.358-3.74 [facility] Work Phone: Vitamin D 25-Hydroxy 20.4 ng/mL [facility] Work Phone: Comment on above: Vitamin D 25(OH) Sta tus Range Deficiency <20 ng/mL (50nmol/L) Insufficiency 20 - 30 ng/mL (50 - 75 nmol/L) Sufficiency 30 - 100 ng/mL (75 - 250 nmol/L) Toxicity >100 ng/mL (>250 nmol/L) Platelets bldon 09-25-2022 Platelets (Bld) [#/Vol] 168 10*3/uL 150-450 [facility] Work Phone: Serum or plasma albumin susy urement (mass/volume)on 09-25-2022 Albumin [Mass/Vol] 3.6 g/dL 3.2-5.0 [facility] Work Phone: Serum or plasma albumin/glob ulin mass ratioon 09-25-2022 Albumin/Globulin [Mass ratio] 1.0 {ratio} 0.9-2.4 [facility] Work Phone: Serum or plasma calcium susy urement (mass/volume)on 09-25-2022 Calcium [Mass/Vol] 9.0 mg/dL 8.5-10.1 [facility] Work Phone: Serum or plasma cholesterol in HDL measurement (mass/volume)on 09-25-2022 Cholesterol in HDL [Mass/Vol] 94 mg/dL >40 [facility] Work Phone: Comment on above: The drugs N-Acetylcy steine and Metamizole may falsely depress this assay. Reference Range HDL <40 mg/dL Low HDL Cholesterol HDL >or= 60 mg/dL High HDL Cholesterol Serum or plasma cholesterol in VLDL measurement (mass/volume)on 09-25-2022 Cholesterol in VLDL [Mass/Vol] 14 mg/dL 5-40 [facility] Work Phone: Serum or plasma creatinine m easurement (mass/volume)on 09-25-2022 Creatinine [Mass/Vol] 0.77 mg/dL 0.55-1.02 [facility] Work Phone: Comment on above: The validity of the calculated GFR & GFRAA in patients over 70 years has not been determined. Clinical correlation is essential. Serum or plasma low density lipoprotein (LDL) cholesterol measurement (mass/volume)on 09-25-2022 Cholesterol in LDL [Mass/Vol] 55 mg/dL 0-130 [facility] Work Phone: Serum or plasma urea nitroge n measurement (mass/volume)on 09-25-2022 Urea nitrogen [Mass/Vol] 19 mg/dL 7-18 [facility] Work Phone: Thin prep Papanicolaou smear with manual screeningon 09-25-2022 Thin prep Papanicolaou smear with manual screening 50 U/L 15-37 [facility] Work Phone: Thin prep Papanicolaou smear with manual screening 10 5-15 [facility] Work Phone: Absolute lymphocyte counton 03-14-2022 Lymphocytes Auto (Unsp spec) [#/Vol] 1.82 10*3/uL 0.83-4.51 [facility] Work Phone: Basophil percentageon 2021 Basophils/100 WBC (Bld) 0.5 % 0-1 [facility] Work Phone: Bilirubin [Mass/Vol] 0.50 mg/dL 0.20-1.00 [facility] Work Phone: Comment on above: For patients on eltr ombopag therapy, use of Dimension [place] TBIL is not recommended. Chloride [Moles/Vol] 106 mmol/L 98-107 [facility] Work Phone: Cholesterol [Mass/Vol] 174 mg/dL <200 [facility] Work Phone: Comment on above: <200 mg/dL Desirable 200-240 mg/dL Borderline >240 mg/dL High Risk Eosinophils/100 WBC (Bld) 2.1 % 0-5 [facility] Work Phone: Glucose [Mass/Vol] 106 mg/dL 74-106 [facility] Work Phone: Comment on above: Fasting Glucose resu lt from 100 to 125 mg/dL suggests IMPAIRED HOMEOSTASIS per A.D.A. criteria. Neutrophils (Bld) [#/Vol] 3.3 10*3/uL 2.0-7.7 [facility] Work Phone: [phone] Neutrophils/100 WBC (Bld) 56.9 % 47-70 [facility] Work Phone: [phone] Potassium [Moles/Vol] 4.5 mmol/L 3.5-5.1 [facility] Work Phone: [phone] Protein [Mass/Vol] 8.0 g/dL 6.4-8.2 [facility] Work Phone: [phone] Sodium [Moles/Vol] 139 mmol/L 136-145 [facility] Work Phone: [phone] Triglyceride [Mass/Vol] 113 mg/dL <199 [facility] Work Phone: [phone] Comment on above: The drugs N-Acetylcy steine and Metamizole may falsely depress this assay.Serum Triglycerides Reference Interval Normal <150 mg/dL Borderline high 150 - 199 mg/dL High 200 - 499 mg/dL Very High > or = 500 mg/dL WBC (Bld) [#/Vol] 5.8 10*3/uL 4.4-11.0 [facility] Work Phone: [phone] Blood erythrocytes count (nu mber/volume)on 03-14-2022 RBC (Bld) [#/Vol] 4.33 10*6/uL 4.2-5.4 [facility] Work Phone: [phone] Blood hemoglobin measurement (mass/volume)on 03-14-2022 Hemoglobin (Bld) [Mass/Vol] 13.2 g/dL 12.0-15.0 [facility] Work Phone: Blood lymphocytes/100 leukoc yteson 03-14-2022 Lymphocytes/100 WBC (Bld) 31.5 % 19-41 [facility] Work Phone: Blood monocytes/100 leukocyt eson 03-14-2022 Monocytes/100 WBC (Bld) 8.8 % 0-10 [facility] Work Phone: [phone] Blood platelet mean volumeon 03-14-2022 Platelet mean volume (Bld) [Entitic vol] 10.8 fL 6.2-12.0 [facility] Work Phone: [phone] Determination of erythrocyte mean corpuscular volume (MCV)on 03-14-2022 MCV (RBC) [Entitic vol] 92.1 fL 81-99 [facility] Work Phone: [phone] Hematocrit Auto (Bld) [Volum e fraction]on 03-14-2022 Hematocrit (Bld) [Volume fraction] 39.9 % 37-47 [facility] Work Phone: [phone] Laboratory - Chemistry and C hemistry - challengeon 03-14-2022 ALP [Catalytic activity/Vol] 66 U/L 45-117 [facility] Work Phone: ALT [Catalytic activity/Vol] 26 U/L 13-56 [facility] Work Phone: CO2 [Moles/Vol] 28.0 mmol/L 21.0-32.0 [facility] Work Phone: [phone] Globulin (S) [Mass/Vol] 4.0 g/dL 2.2-4.2 [facility] Work Phone: [phone] Urea nitrogen/Creatinine [Mass ratio] 27.3 mg/mg 10-20 [facility] Work Phone: [phone] Laboratory - Hematology and Cell countson 03-14-2022 Erythrocyte distribution width (RBC) [Entitic vol] 43.7 fL 35.1-43.9 [facility] Work Phone: [phone] Erythrocyte distribution width (RBC) [Ratio] 12.8 % 11.6-14.6 [facility] Work Phone: [phone] Immature granulocytes/100 WBC (Bld) 0.200 % 0.0-0.9 [facility] Work Phone: [phone] Comment on above: IG% - Immature Granu locytes (promyelocytes, myelocytes and metamyelocytes) > 1% indicates that a LEFT SHIFT is Present. MCH (RBC) [Entitic mass] 30.5 pg 27.0-32.0 [facility] Work Phone: Nucleated RBC/100 WBC (Bld) [Ratio] 0 % 0-5 [facility] Work Phone: MCHC Auto (RBC) [Mass/Vol]on 03-14-2022 MCHC (RBC) [Mass/Vol] 33.1 g/dL 32-36 [facility] Work Phone: No Panel Informationon 03-14 Estimated GFR (MDRD) Amer 83 mL/min >60 [facility] Work Phone: Comment on above: GFR Calc Estimated GFR (MDRD) Non-Af Amer 69 mL/min >60 [facility] Work Phone: Comment on above: Non- GFR Calc Thyroid Stimulating Hormone (TSH) 1.69 uIU/mL 0.358-3.74 [facility] Work Phone: Vitamin D 25-Hydroxy 27.2 ng/mL [facility] Work Phone: Comment on above: Vitamin D 25(OH) Sta tus Range Deficiency <20 ng/mL (50nmol/L) Insufficiency 20 - 30 ng/mL (50 - 75 nmol/L) Sufficiency 30 - 100 ng/mL (75 - 250 nmol/L) Toxicity >100 ng/mL (>250 nmol/L) Platelets bldon 03-14-2022 Platelets (Bld) [#/Vol] 184 10*3/uL 150-450 [facility] Work Phone: Serum or plasma albumin susy urement (mass/volume)on 03-14-2022 Albumin [Mass/Vol] 4.0 g/dL 3.2-5.0 [facility] Work Phone: Serum or plasma albumin/glob ulin mass ratioon 03-14-2022 Albumin/Globulin [Mass ratio] 1.0 {ratio} 0.9-2.4 [facility] Work Phone: Serum or plasma calcium susy urement (mass/volume)on 03-14-2022 Calcium [Mass/Vol] 9.4 mg/dL 8.5-10.1 [facility] Work Phone: Serum or plasma cholesterol in HDL measurement (mass/volume)on 03-14-2022 Cholesterol in HDL [Mass/Vol] 77 mg/dL >40 [facility] Work Phone: Comment on above: The drugs N-Acetylcy steine and Metamizole may falsely depress this assay. Reference Range HDL <40 mg/dL Low HDL Cholesterol HDL >or= 60 mg/dL High HDL Cholesterol Serum or plasma cholesterol in VLDL measurement (mass/volume)on 03-14-2022 Cholesterol in VLDL [Mass/Vol] 23 mg/dL 5-40 [facility] Work Phone: Serum or plasma creatinine m easurement (mass/volume)on 03-14-2022 Creatinine [Mass/Vol] 0.84 mg/dL 0.55-1.02 [facility] Work Phone: Comment on above: The validity of the calculated GFR & GFRAA in patients over 70 years has not been determined. Clinical correlation is essential. Serum or plasma low density lipoprotein (LDL) cholesterol measurement (mass/volume)on 03-14-2022 Cholesterol in LDL [Mass/Vol] 74 mg/dL 0-130 [facility] Work Phone: Serum or plasma urea nitroge n measurement (mass/volume)on 03-14-2022 Urea nitrogen [Mass/Vol] 23 mg/dL 7-18 [facility] Work Phone: Thin prep Papanicolaou smear with manual screeningon 03-14-2022 Thin prep Papanicolaou smear with manual screening 54 U/L 15-37 [facility] Work Phone: Thin prep Papanicolaou smear with manual screening 5 5-15 [facility] Work Phone: CNOVon 12-30-2017 CNOV Office Visit (AGCARDWST) ----GOGO WARE ([id number]) 1940 [facility] Time Provider Department12/30/17 1:30 PM SERGIO CARABALLOWSYareli During your visit today, we recorded the following information about you: Pulse Blood pressure Weight Height 64/minute 140/62 83.1 kg 1.651 Ashley Caraballo MD 12/31/2017 4:54 PM SignedPERTINENT CARDIAC HISTORYHTNTPN elevationHLObesityAortic stenosis - mildADHERENCE TO GUIDELINESACE-I or ARB for HF with prior LVEFANDlt;40 (NQF 0081) - N/AASA or Plavix for ASHD (NQF 0067) - metBeta madhu for ASHD with prior IA or prior LVEFANDlt;40 (NQF 0070) - N/ABeta madhu for HF with prior LVEFANDlt;40 (NQF 0083) - N/AACE-I or ARB for ASHD with DM or prior LVEFANDlt;40 (NQF 0066) - N/AStatin therapy for ASHD or FHL or DM - metBMI documented and plan if ANDgt;25 (NQF 0421) - lifestyle recommendation formTobacco use screening and referral (NQF 0028) - lifestyle recommendation formRecommendation for whole food, plant based diet - lifestyle recommendation formCLINICAL IMPRESSION/PLAN:Gogo Ware has diffuse plaque and likely small vessel disease. Shesuffered a small non-STEMI in the setting of pneumonia with hypotension. She isat risk of further events.I recommended that she keep herself well hydrated. We will continue her currentmedications for the time being. We will consider down titration of medicationsover the next several months. Specifically, she will remain on moderate dosestatin and dual antiplatelet therapy.If she has recurrent symptoms, she's been advised to contact me. I will see herin 3 months or as needed.Written and verbal health teaching given to patient, patient verbalizesunderstanding and agrees with treatment plan.This note was generated using Dragon voice recognition system, and there may besome incorrect words, spellings, and punctuation that were not noted inchecking the note before saving.DIAGNOSIS FOR VISIT:ASHDHypertensionHISTORY OF PRESENT ILLNESSGogo Ware returns for follow-up of her recent angiogram. She was foundto have diffuse plaque but no high-grade lesions. There was a lesion ofborderline significance in the LAD. Medical therapy was recommended, althoughshe was given the option of PCI and declined.She's had no recurrent symptoms. She's had no falls. She denies chestdiscomfort. She's had no orthopnea, edema, syncope. She's had no palpitations,TIAs, amaurosis or claudicationALLERGIES:NELLA De Oliveira Known AllergiesCURRENT OUTPATIENT MEDICATIONS:atorvastatin (LIPITOR) 40 mg tablet Take 1 tablet by mouth once daily.carvedilol (COREG) 12.5 mg tablet Take 1 tablet by mouth twice daily withmeals.clopidogrel (PLAVIX) 75 mg tablet Take 1 tablet by mouth once daily.valsartan (DIOVAN) 160 mg tablet Take 1 tablet by mouth once daily.brimonidine (ALPHAGAN) 0.2 % ophthalmic solution Use 2 Drops in both eyes twicedaily.DORZOLAMIDE HCL/TIMOLOL MALEAT (DORZOLAMIDE-TIMOLOL OPHTHALMIC) Use 1 Drop ineyes twice daily.aspirin, enteric coated (ASPIRIN, ENTERIC COATED) 81 mg EC tablet Take 81 mg bymouth once daily.latanoprost (XALATAN) 0.005 % ophthalmic solution Use 1 Drop in both eyes dailyat bedtime.timolol hemihydrate (BETIMOL) 0.5 % ophthalmic solution Use 1 Drop in both eyestwice daily.temazepam (RESTORIL) 30 mg cap Take 30 mg by mouth at bedtime as needed.traZODone (DESYREL) 100 mg tablet Take 1 tablet by mouth daily at bedtime.PAST MEDICAL HISTORYDiagnosis Date- Disease PROBLEM SLEEPING- GlaucomaPAST SURGICAL HISTORYProcedure Laterality Date- PROCEDURE 1999, 2006 BOTH HIPS REPLACED- PROCEDURE 2009 LASER OU FOR GLAUCOMAFAMILY HISTORYProblem Relation Age of Onset- Diabetes Father- Colon Cancer Maternal Grandmother- Stroke Maternal Grandfather- Blindness Other GREAT AUNT- Colon Cancer OtherSocial History Marital status: Spouse name: Years of education: Number of children:Social History Main Topics Smoking status: Never Smoker Smokeless status: Never UsedREVIEW OF SYSTEMS: General: No chills, fever, weight loss, night sweats.Respiratory: No productive cough. Cardiac: As noted above. GI: No melena.: No dysuria. Musculoskeletal: No myalgias.PHYSICAL EXAMINATION: S/he is alert and in no distress.VITAL SIGNS: BP 140/62 Pulse 64 Ht 5' 5ANDquot; (1.65m) Wt 183 lb 3.2 oz(83.1kg) BMI 30.49 kg/(m2).SHEENT: Skin is warm and dry. No xanthelasmas appreciated. Pharynx isbenign. There is no oral cyanosis. Neck: supple. No adenopathy or thyroidenlargement. Chest: Clear to percussion and auscultation. Trachea is midline. Air entry is equal. There is no chest wall tenderness. Cardiac: Regularrhythm. S1 and S2 are normal. PMI is nondisplaced. There is a soft systolicejection murmur. No click is heard. Carotids are brisk without bruits. JVPis less than 10 cm. Abdomen: Soft and nontender. There are no pulsatilemasses or bruits. No liver enlargement. Bowel sounds are active.Extremities: No edema. There is significant bruising in the right radialregion. There is no pulsatile mass or bruit. Pulses are intact and symmetrical. No clubbing or cyanosis. No femoral bruits. Neurologic: Grossly normal motorand sensory. S/he is alert and oriented x4.Angiogram images were reviewed with the patient. I pointed out the extent ofher diffuse plaque. IFR of the LAD lesion was of borderline significance. Sheopted for medical therapy.Electronically Signed:Sergio Caraballo [facility] 2017 1:45 [facility]Salud [facility] Chi Provider: SERGIO CARABALLO [[id number]]Allergies As of Date: 12/30/2017(No Known Allergies)Date Reviewed: 12/30/2017Reviewed by: Edgar Lazar - Fully AssessedReason for Visit: Follow Up [171]Primary Visit Diagnosis:ASHD (arteriosclerotic heart disease) [I25.10]Order(s):atorvastatin (LIPITOR) 40 mg tabletTake 1 tablet by mouth once daily.Disp: 90 tabletRfl: 5 carvedilol (COREG) 12.5 mg tabletTake 1 tablet by mouth twice daily with meals.Disp: 180 tabletRfl: 3 clopidogrel (PLAVIX) 75 mg tabletTake 1 tablet by mouth once daily.Disp: 90 tabletRfl: 3 valsartan (DIOVAN) 160 mg tabletTake 1 tablet by mouth once daily.Disp: 90 tabletRfl: 3Prescriptions as of 12/30/2017 Sig: ATORVASTATIN 40 MG TABLET Take 1 tablet by mouth once d* CARVEDILOL 12.5 MG TABLET Take 1 tablet by mouth twice * CLOPIDOGREL 75 MG TABLET Take 1 tablet by mouth once d* VALSARTAN 160 MG TABLET Take 1 tablet by mouth once d* BRIMONIDINE 0.2 % EYE DROPS Use 2 Drops in both eyes twic* DORZOLAMIDE-TIMOLOL OPHTHALMIC Use 1 Drop in eyes twice korey* ASPIRIN 81 MG TABLET,DELAYED * Take 81 mg by mouth once korey* LATANOPROST 0.005 % EYE DROPS Use 1 Drop in both eyes daily* TIMOLOL 0.5 % EYE DROPS Use 1 Drop in both eyes twice* TEMAZEPAM 30 MG CAPSULE Take 30 mg by mouth at bedtim* TRAZODONE 100 MG TABLET Take 1 tablet by mouth daily *Medication notes this encounter TEMAZEPAM 30 MG CAPSULE >> Edgar Lazar MA 12/30/2017 1:27 PM >> EDGAR LAZAR MA SatDec 30, 2017 1:27 PM Ran out of medicationProblem List As Of Date: 12/30/2017(None)Prescriptions ordered this encounter Disp Refills Start End ATORVASTATIN 40 MG TABLET 90 t* 5 12/30/2017 Route: ORAL Sig: Take 1 tablet by mouth once daily. CARVEDILOL 12.5 MG TABLET 180 * 3 12/30/2017 Route: ORAL Sig: Take 1 tablet by mouth twice daily with meals. CLOPIDOGREL 75 MG TABLET 90 t* 3 12/30/2017 Route: ORAL Sig: Take 1 tablet by mouth once daily. VALSARTAN 160 MG TABLET 90 t* 3 12/30/2017 Route: ORAL Sig: Take 1 tablet by mouth once daily.Medications Discontinued During This Encounter atorvastatin (LIPITOR) 40 mg tablet 12/30/2017 Class: Historical Med Route: ORAL Sig: Take 40 mg by mouth once daily. Disc: Reason for discontinue is not on file. carvedilol (COREG) 12.5 mg tablet 12/30/2017 Class: Historical Med Route: ORAL Sig: Take 12.5 mg by mouth twice daily with meals. Disc: Reason for discontinue is not on file. clopidogrel (PLAVIX) 75 mg tablet 12/30/2017 Class: Historical Med Route: ORAL Sig: Take 75 mg by mouth once daily. Disc: Reason for discontinue is not on file. valsartan (DIOVAN) 160 mg tablet 12/30/2017 Class: Historical Med Route: ORAL Sig: Take 160 mg by mouth once daily. Disc: Reason for discontinue is not on file. Status:Closed by SERGIO CARABALLO MD on 12/31/17 [facility] PROGRESSon 12-30-2017 PROGRESS HNO ID: [id number] thor: Sergio Ha: (none)Author Type: PhysicianType: Progress NotesFiled: 12/31/2017 4:54 PMNote Text:PERTINENT CARDIAC HISTORYHTNTPN elevationHLObesityAortic stenosis - mildADHERENCE TO GUIDELINESACE-I or ARB for HF with prior LVEF<40 (NQF 0081) - N/AASA or Plavix for ASHD (NQF 0067) - metBeta madhu for ASHD with prior IA or prior LVEF<40 (NQF 0070) - N/ABeta madhu for HF with prior LVEF<40 (NQF 0083) - N/AACE-I or ARB for ASHD with DM or prior LVEF<40 (NQF 0066) - N/AStatin therapy for ASHD or FHL or DM - metBMI documented and plan if >25 (NQF 0421) - lifestyle recommendation formTobacco use screening and referral (NQF 0028) - lifestyle recommendationformRecommendat ion for whole food, plant based diet - lifestyle recommendationformCLINICAL IMPRESSION/PLAN:Gogo Ware has diffuse plaque and likely small vessel disease. Shesuffered a small non-STEMI in the setting of pneumonia with hypotension.She is at risk of further events.I recommended that she keep herself well hydrated. We will continue hercurrent medications for the time being. We will consider down titration ofmedications over the next several months. Specifically, she will remain onmoderate dose statin and dual antiplatelet therapy.If she has recurrent symptoms, she's been advised to contact me. I willsee her in 3 months or as needed.Written and verbal health teaching given to patient, patient verbalizesunderstanding and agrees with treatment plan.This note was generated using [employer] voice recognition system, and theremay be some incorrect words, spellings, and punctuation that were notnoted in checking the note before saving.DIAGNOSIS FOR VISIT:ASHDHypertensionHISTORY OF PRESENT ILLNESSGogo Ware returns for follow-up of her recent angiogram. She wasfound to have diffuse plaque but no high-grade lesions. There was a lesionof borderline significance in the LAD. Medical therapy was recommended,although she was given the option of PCI and declined.She's had no recurrent symptoms. She's had no falls. She denies chestdiscomfort. She's had no orthopnea, edema, syncope. She's had nopalpitations, TIAs, amaurosis or claudicationALLERGIES:NELLA De Oliveira Known AllergiesCURRENT OUTPATIENT MEDICATIONS:atorvastatin (LIPITOR) 40 mg tablet Take 1 tablet by mouth once daily.carvedilol (COREG) 12.5 mg tablet Take 1 tablet by mouth twice daily withmeals.clopidogrel (PLAVIX) 75 mg tablet Take 1 tablet by mouth once daily.valsartan (DIOVAN) 160 mg tablet Take 1 tablet by mouth once daily.brimonidine (ALPHAGAN) 0.2 % ophthalmic solution Use 2 Drops in both eyestwice daily.DORZOLAMIDE HCL/TIMOLOL MALEAT (DORZOLAMIDE-TIMOLOL OPHTHALMIC) Use 1 Dropin eyes twice daily.aspirin, enteric coated (ASPIRIN, ENTERIC COATED) 81 mg EC tablet Take 81mg by mouth once daily.latanoprost (XALATAN) 0.005 % ophthalmic solution Use 1 Drop in both eyesdaily at bedtime.timolol hemihydrate (BETIMOL) 0.5 % ophthalmic solution Use 1 Drop in botheyes twice daily.temazepam (RESTORIL) 30 mg cap Take 30 mg by mouth at bedtime as needed.traZODone (DESYREL) 100 mg tablet Take 1 tablet by mouth daily at bedtime.PAST MEDICAL HISTORYDiagnosis Date- Disease PROBLEM SLEEPING- GlaucomaPAST SURGICAL HISTORYProcedure Laterality Date- PROCEDURE 1999, 2006 BOTH HIPS REPLACED- PROCEDURE 2009 LASER OU FOR GLAUCOMAFAMILY HISTORYProblem Relation Age of Onset- Diabetes Father- Colon Cancer Maternal Grandmother- Stroke Maternal Grandfather- Blindness Other GREAT AUNT- Colon Cancer OtherSocial History Marital status: Spouse name: Years of education: Number of children:Social History Main Topics Smoking status: Never Smoker Smokeless status: Never UsedREVIEW OF SYSTEMS: General: No chills, fever, weight loss, night sweats. Respiratory: No productive cough. Cardiac: As noted above. GI: Nomelena. : No dysuria. Musculoskeletal: No myalgias.PHYSICAL EXAMINATION: S/he is alert and in no distress.VITAL SIGNS: BP 140/62 Pulse 64 Ht 5' 5" (1.65m) Wt 183 lb 3.2 oz(83.1kg) BMI 30.49 kg/(m2).SHEENT: Skin is warm and dry. No xanthelasmas appreciated. Pharynx isbenign. There is no oral cyanosis. Neck: supple. No adenopathy orthyroid enlargement. Chest: Clear to percussion and auscultation.Trachea is midline. Air entry is equal. There is no chest walltenderness. Cardiac: Regular rhythm. S1 and S2 are normal. PMI isnondisplaced. There is a soft systolic ejection murmur. No click isheard. Carotids are brisk without bruits. JVP is less than 10 cm.Abdomen: Soft and nontender. There are no pulsatile masses or bruits. Noliver enlargement. Bowel sounds are active. Extremities: No edema.There is significant bruising in the right radial region. There is nopulsatile mass or bruit. Pulses are intact and symmetrical. No clubbingor cyanosis. No femoral bruits. Neurologic: Grossly normal motor andsensory. S/he is alert and oriented x4.Angiogram images were reviewed with the patient. I pointed out the extentof her diffuse plaque. IFR of the LAD lesion was of borderlinesignificance. She opted for medical therapy.Electronically Signed:Sergio Caraballo, [facility] 2017 1:45 PMCC:Eh Huddleston MD [facility] CNOVon 12-23-2017 CNOV Office Visit (AGCARDWST) ----GOGO WARE ([id number]) 1940 [facility] Time Provider Department12/23/17 1:15 PM SERGIO CARABALLO AGCARDWST During your visit today, we recorded the following information about you: Pulse Blood pressure Weight Height 62/minute 148/76 82.3 kg 1.651 Ashley Caraballo MD 12/23/2017 5:08 PM SignedPERTINENT CARDIAC HISTORYHTNTPN elevationHLObesityAortic stenosis - mildADHERENCE TO GUIDELINESACE-I or ARB for HF with prior LVEFANDlt;40 (NQF 0081) - N/AASA or Plavix for ASHD (NQF 0067) - metBeta madhu for ASHD with prior IA or prior LVEFANDlt;40 (NQF 0070) - N/ABeta madhu for HF with prior LVEFANDlt;40 (NQF 0083) - N/AACE-I or ARB for ASHD with DM or prior LVEFANDlt;40 (NQF 0066) - N/AStatin therapy for ASHD or FHL or DM - metBMI documented and plan if ANDgt;25 (NQF 0421) - lifestyle recommendation formTobacco use screening and referral (NQF 0028) - lifestyle recommendation formRecommendation for whole food, plant based diet - lifestyle recommendation formCLINICAL IMPRESSION/PLAN:Gogo Ware is doing well on her medication, but expressed the desire tomodify treatment. I suspect that her blood pressure has been elevated for along time. It is unclear whether her troponin bump was related to unrecognizedhypotension and poor perfusion or whether she has obstructive coronary disease.As she has been relatively asymptomatic, I agree with Dr. Sheppard that it isprudent to assess her coronary anatomy to help with prognosis. I suspect thatsai will have small vessel disease, which we can then treat medically. She isvery anxious to have this resolved. I do not believe that a normal stress testwill be reassuring to her.She has mild aortic stenosis which will be followed.She was offered angiography at [facility], [facility] This will be arranged for her in the near future.Her syncopal episode was most likely related to her acute illness and posturalhypotension, but we will consider event monitoring if she has recurrentsymptoms, especially if she is found to have normal coronaries.She will have chest x-ray and labs done today in anticipation of angiography. Iwivette see her in one month or as needed.Written and verbal health teaching given to patient, patient verbalizesunderstanding and agrees with treatment plan.This note was generated using [employer] voice recognition system, and there may besome incorrect words, spellings, and punctuation that were not noted inchecking the note before saving.DIAGNOSIS FOR VISIT:NSTEMINear-syncopeHyper tensionHISTORY OF PRESENT ILLNESSGogo Ware is a 77-year-old woman who is seen at her request for secondopinion.She was recently admitted to [facility] following a an episode of nearsyncope which occurred in the setting of community-acquired pneumonia andlikely dehydration. Her troponin was detectable on admission and graduallyincreased to the 1.5 range. She had no chest discomfort. [facility] who recommended further evaluation includingangiography. She declined and wished a second opinion. She was discharged withno mention made of any abnormal rhythms on telemetry.She's had no recurrent symptoms. She reports stable exercise tolerance. She'shad intermittent elevation of blood pressure in the past but has declinedtherapy.She is now on multiple medications and wishes to discontinue them. She reportsthat she thinks she is overmedicated.She's had stable exercise tolerance. She denies edema. She's had no TIAs,amaurosis, claudication. No palpitations. She denies any rebecca syncope.ALLERGIES:ALLERGIESNo Known AllergiesCURRENT OUTPATIENT MEDICATIONS:brimonidine (ALPHAGAN) 0.2 % ophthalmic solution Use 2 Drops in both eyes twicedaily.DORZOLAMIDE HCL/TIMOLOL MALEAT (DORZOLAMIDE-TIMOLOL OPHTHALMIC) Use 1 Drop ineyes twice daily.aspirin, enteric coated (ASPIRIN, ENTERIC COATED) 81 mg EC tablet Take 81 mg bymouth once daily.atorvastatin (LIPITOR) 40 mg tablet Take 40 mg by mouth once daily.carvedilol (COREG) 12.5 mg tablet Take 12.5 mg by mouth twice daily with meals.clopidogrel (PLAVIX) 75 mg tablet Take 75 mg by mouth once daily.valsartan (DIOVAN) 160 mg tablet Take 160 mg by mouth once daily.temazepam (RESTORIL) 30 mg cap Take 30 mg by mouth at bedtime as needed.latanoprost (XALATAN) 0.005 % ophthalmic solution Use 1 Drop in both eyes dailyat bedtime.traZODone (DESYREL) 100 mg tablet Take 1 tablet by mouth daily at bedtime.timolol hemihydrate (BETIMOL) 0.5 % ophthalmic solution Use 1 Drop in both eyestwice daily.PAST MEDICAL HISTORYDiagnosis Date- Disease PROBLEM SLEEPING- GlaucomaPAST SURGICAL HISTORYProcedure Laterality Date- PROCEDURE 1999, 2006 BOTH HIPS REPLACED- PROCEDURE 2009 LASER OU FOR GLAUCOMAFAMILY HISTORYProblem Relation Age of Onset- Diabetes Father- Colon Cancer Maternal Grandmother- Stroke Maternal Grandfather- Blindness Other GREAT AUNT- Colon Cancer OtherSocial History Marital status: Spouse name: Years of education: Number of children:Social History Main Topics Smoking status: Never Smoker Smokeless status: Never UsedREVIEW OF SYSTEMS: General: No chills, fever, weight loss, night sweats.SHEENT: No change in vision or auditory acuity. Respiratory: No productivecough. Cardiac: As noted above. GI: No melena. : No dysuria.Musculoskeletal: No myalgias. Neurologic: No strokes. Psychiatric: Nodepression. Endocrine: No diabetes. Hematologic: No anemia.PHYSICAL EXAMINATION: S/he is alert and in no distressVITAL SIGNS: BP 148/76 Pulse 62 Ht 5' 5ANDquot; (1.65m) Wt 181 lb 8 oz(82.3kg) BMI 30.20 kg/(m2).SHEENT: Skin is warm and dry. Pupils are round and reactive. Retinal vesselsare grossly unremarkable. No xanthelasmas appreciated. Pharynx is benign.There is no oral cyanosis. Neck: supple. No adenopathy or thyroidenlargement. Chest: Clear to percussion and auscultation. Trachea is midline. Air entry is equal. There is no chest wall tenderness. Cardiac: Regularrhythm. S1 and S2 are normal. PMI is nondisplaced. There is a 2/6 systolicejection murmur, consistent with aortic stenosis. No click is heard. Carotidsare brisk without bruits. JVP is less than 10 cm. Abdomen: Soft andnontender. There are no pulsatile masses or bruits. No liver enlargement.Bowel sounds are active. : Deferred. Extremities: No edema. Pulses areintact and symmetrical. No clubbing or cyanosis. No femoral bruits.Neurologic: Grossly normal motor and sensory. S/he is alert and oriented x4.Musculoskeletal: No joint deformities.Records from [facility] were reviewed. Troponin peaked at about 1.5. HisEKG showed no acute change.Echocardiogram showed normal ejection fraction. No wall motion abnormality wasdescribed. There was mild aortic stenosis.There was evidence of left-sided pneumonia on chest x-ray although white countwas normal. CTA showed no evidence of thromboembolic disease.She was discharged on aspirin, Plavix, Coreg, atorvastatin and valsartan..Electronically Signed:Sergio Caraballo MDFebruary 2017 1:34 PMC: Alise Davison MD 12/23/2017 1:34 PM SignedLIFESTYLE CHANGEA healthy lifestyle is the most important component of your overall treatmentplan. Please give serious thought to the following areas and commit to makinglong term changes.EAT A WHOLE FOOD, PLANT BASED DIETThe nutrition your body gets is more important than the medicine you take.What matters most is the overall way you eat. We encourage you to minimize theuse of animal products (which include dairy and all meats except fatty fish)and use whole, unprocessed plant foods to provide your protein, vitamins andother nutrients. We have a lot of information to share with you on this topic. We also hold Shared Medical Appointments, where you can come visit with in the company of other patients and spend over an hour talking aboutthe challenges of changing the way you eat. This is not a ANDquot;dietANDquot;.It is a way of life that you will keep with you.EXERCISE REGULARLYIt is not important to spend hours in the gym, lifting weights and perspiringheavily. A total of 2-3 hours per week of aerobic (causing you to bemoderately short of breath) exercise is sufficient to improve your health.Talk to us before you begin a new exercise program, if you have heart diseaseor experience shortness of breath or chest pain.REDUCE STRESSChronic emotional and physical stress leads to disease. Ways of reducingstress include meditation, visualization, prayer, yoga and other forms ofrelaxation therapy. Consistency is the rose. Find a technique that works foryou and do it every day.CULTIVATE RELATIONSHIPSLoneliness and isolation have a major negative impact on health. Seek outothers who can love, care for and nurture you. Avoid hurtful relationships.MAINTAIN IDEAL BODY WEIGHTThe best way to do this is to do all the things above. Our bodies naturallyfind the right weight if we keep moving and feed ourselves the right food. Ifyour BMI is greater than 25, we strongly recommend a referral to a weightmanagement program. Please speak to us or your family physician aboutavailable programs.AVOID NICOTINE IN ALL FORMSThis includes all tobacco products, whether chewed, smoked, vaped, or rubbed onthe skin. Smoking cessation programs, which can make use of tobaccosubstitutes, medications to suppress cravings and behavior management, areavailable. Please contact your family physician about programs in your area.Moose Alvarez RN, RN 12/23/2017 2:56 PM SignedReviewed cath packet with patient, she verbalizes understanding and allquestions answered to her satisfaction.Referring Provider: SERGIO CARABALLO [[id number]]Allergies As of Date: 12/23/2017(No Known Allergies)Date Reviewed: 07/28/2015Reviewed by: Eryn Contreras LPN - Fully AssessedReason for Visit: New Patient [172] Cmt: hospital f/uPrimary Visit Diagnosis:NSTEMI (non-ST elevated myocardial infarction) (HCC) [I21.4] Other Visit Diagnosis:Essential hypertension [I10]Order(s):LEFT HEART CATH,PERCUTANEOUS [50445ZMV] Order #: [id number]: 1 BASIC METABOLIC PNL [SQBMP] Order #: [id number] FUTURE CBC [SQCBC] Order #: [id number] FUTURE PROTHROMBIN TIME/PT [SQPT] Order #: [id number] FUTURE XR CHEST 2V FRONTAL/LAT [[id number]] Order #: [id number] FUTUREPrescriptions as of 12/23/2017 Sig: BRIMONIDINE 0.2 % EYE DROPS Use 2 Drops in both eyes twic* DORZOLAMIDE-TIMOLOL OPHTHALMIC Use 1 Drop in eyes twice korey* ASPIRIN 81 MG TABLET,DELAYED * Take 81 mg by mouth once korey* ATORVASTATIN 40 MG TABLET Take 40 mg by mouth once korey* CARVEDILOL 12.5 MG TABLET Take 12.5 mg by mouth twice d* CLOPIDOGREL 75 MG TABLET Take 75 mg by mouth once korey* VALSARTAN 160 MG TABLET Take 160 mg by mouth once carolina* TEMAZEPAM 30 MG CAPSULE Take 30 mg by mouth at bedtim* LATANOPROST 0.005 % EYE DROPS Use 1 Drop in both eyes daily* TRAZODONE 100 MG TABLET Take 1 tablet by mouth daily * TIMOLOL 0.5 % EYE DROPS Use 1 Drop in both eyes twice*Problem List As Of Date: 12/23/2017(None) Other instructions from your clinician: LIFESTYLE CHANGE A healthy lifestyle is the most important component of your overall treatment plan. Please give serious thought to the following areas and commit to making half-way changes. EAT A WHOLE FOOD, PLANT BASED DIET The nutrition your body gets is more important than the medicine you take. What matters most is the overall way you eat. We encourage you to minimize the use of animal products (which include dairy and all meats except fatty fish) and use whole, unprocessed plant foods to provide your protein, vitamins and other nutrients. We have a lot of information to share with you on this topic. We also hold Shared Medical Appointments, where you can come visit with Dr. Caraballo in the company of other patients and spend over an hour talking about the challenges of changing the way you eat. This is not a "diet". It is a way of life that you will keep with you. EXERCISE REGULARLY It is not important to spend hours in the gym, lifting weights and perspiring heavily. A total of 2-3 hours per week of aerobic (causing you to be moderately short of breath) exercise is sufficient to improve your health. Talk to us before you begin a new exercise program, if you have heart disease or experience shortness of breath or chest pain. REDUCE STRESS Chronic emotional and physical stress leads to disease. Ways of reducing stress include meditation, visualization, prayer, yoga and other forms of relaxation therapy. Consistency is the rose. Find a technique that works for you and do it every day. CULTIVATE RELATIONSHIPS Loneliness and isolation have a major negative impact on health. Seek out others who can love, care for and nurture you. Avoid hurtful relationships. MAINTAIN IDEAL BODY WEIGHT The best way to do this is to do all the things above. Our bodies naturally find the right weight if we keep moving and feed ourselves the right food. If your BMI is greater than 25, we strongly recommend a referral to a weight management program. Please speak to us or your family physician about available programs. AVOID NICOTINE IN ALL FORMS This includes all tobacco products, whether chewed, smoked, vaped, or rubbed on the skin. Smoking cessation programs, which can make use of tobacco substitutes, medications to suppress cravings and behavior management, are available. Please contact your family physician about programs in your area.Visit Notes:>> Moose (Rn) LOULOU Alvarez Mon Dec 23, 2017 2:55 PM Status: SignedReviewed cath packet with patient, she verbalizes understanding and allquestions answered to her satisfaction.Classic SmartForms filed during this visit:Extended VitalsEncounter Number: [id number] Status:Closed by SERGIO CARABALLO MD on 12/23/17 [facility] PROGRESSon 12-23-2017 PROGRESS HNO ID: [id number] thor: Sergio Ha: (none)Author Type: PhysicianType: Progress NotesFiled: 12/23/2017 5:08 PMNote Text:PERTINENT CARDIAC HISTORYHTNTPN elevationHLObesityAortic stenosis - mildADHERENCE TO GUIDELINESACE-I or ARB for HF with prior LVEF<40 (NQF 0081) - N/AASA or Plavix for ASHD (NQF 0067) - metBeta madhu for ASHD with prior IA or prior LVEF<40 (NQF 0070) - N/ABeta madhu for HF with prior LVEF<40 (NQF 0083) - N/AACE-I or ARB for ASHD with DM or prior LVEF<40 (NQ 0066) - N/AStatin therapy for ASHD or FHL or DM - metBMI documented and plan if >25 (NQ 0421) - lifestyle recommendation formTobacco use screening and referral (NQ 0028) - lifestyle recommendationformRecommendat ion for whole food, plant based diet - lifestyle recommendationformCLINICAL IMPRESSION/PLAN:Gogo Ware is doing well on her medication, but expressed thedesire to modify treatment. I suspect that her blood pressure has beenelevated for a long time. It is unclear whether her troponin bump wasrelated to unrecognized hypotension and poor perfusion or whether she hasobstructive coronary disease. As she has been relatively asymptomatic, Iagree with Dr. Sheppard that it is prudent to assess her coronary anatomyto help with prognosis. I suspect that she will have small vessel disease,which we can then treat medically. She is very anxious to have thisresolved. I do not believe that a normal stress test will be reassuringto her.She has mild aortic stenosis which will be followed.She was offered angiography at [facility], but [facility] to [facility]. This will be arranged for her in the near future.Her syncopal episode was most likely related to her acute illness andpostural hypotension, but we will consider event monitoring if she hasrecurrent symptoms, especially if she is found to have normal coronaries.She will have chest x-ray and labs done today in anticipation ofangiography. I will see her in one month or as needed.Written and verbal health teaching given to patient, patient verbalizesunderstanding and agrees with treatment plan.This note was generated using [employer] voice recognition system, and theremay be some incorrect words, spellings, and punctuation that were notnoted in checking the note before saving.DIAGNOSIS FOR VISIT:NSTEMINear-syncopeHyper tensionHISTORY OF PRESENT ILLNESSGogo Ware is a 77-year-old woman who is seen at her request [facility] opinion.She was recently admitted to [facility] following a an episode ofnear syncope which occurred in the setting of community-acquired pneumoniaand likely dehydration. Her troponin was detectable on admission andgradually increased to the 1.5 range. She had no chest discomfort. She wasseen by the [facility] dermatology physician assistant who recommended furtherevaluation including angiography. She declined and wished a secondopinion. She was discharged with no mention made of any abnormal rhythmson telemetry.She's had no recurrent symptoms. She reports stable exercise tolerance.She's had intermittent elevation of blood pressure in the past but hasdeclined therapy.She is now on multiple medications and wishes to discontinue them. Shereports that she thinks she is overmedicated.She's had stable exercise tolerance. She denies edema. She's had no TIAs,amaurosis, claudication. No palpitations. She denies any rebecca syncope.ALLERGIES:ALLERGIESNo Known AllergiesCURRENT OUTPATIENT MEDICATIONS:brimonidine (ALPHAGAN) 0.2 % ophthalmic solution Use 2 Drops in both eyestwice daily.DORZOLAMIDE HCL/TIMOLOL MALEAT (DORZOLAMIDE-TIMOLOL OPHTHALMIC) Use 1 Dropin eyes twice daily.aspirin, enteric coated (ASPIRIN, ENTERIC COATED) 81 mg EC tablet Take 81mg by mouth once daily.atorvastatin (LIPITOR) 40 mg tablet Take 40 mg by mouth once daily.carvedilol (COREG) 12.5 mg tablet Take 12.5 mg by mouth twice daily withmeals.clopidogrel (PLAVIX) 75 mg tablet Take 75 mg by mouth once daily.valsartan (DIOVAN) 160 mg tablet Take 160 mg by mouth once daily.temazepam (RESTORIL) 30 mg cap Take 30 mg by mouth at bedtime as needed.latanoprost (XALATAN) 0.005 % ophthalmic solution Use 1 Drop in both eyesdaily at bedtime.traZODone (DESYREL) 100 mg tablet Take 1 tablet by mouth daily at bedtime.timolol hemihydrate (BETIMOL) 0.5 % ophthalmic solution Use 1 Drop in botheyes twice daily.PAST MEDICAL HISTORYDiagnosis Date- Disease PROBLEM SLEEPING- GlaucomaPAST SURGICAL HISTORYProcedure Laterality Date- PROCEDURE 1999, 2006 BOTH HIPS REPLACED- PROCEDURE 2009 LASER OU FOR GLAUCOMAFAMILY HISTORYProblem Relation Age of Onset- Diabetes Father- Colon Cancer Maternal Grandmother- Stroke Maternal Grandfather- Blindness Other GREAT AUNT- Colon Cancer OtherSocial History Marital status: Spouse name: Years of education: Number of children:Social History Main Topics Smoking status: Never Smoker Smokeless status: Never UsedREVIEW OF SYSTEMS: General: No chills, fever, weight loss, night sweats. SHEENT: No change in vision or auditory acuity. Respiratory: Noproductive cough. Cardiac: As noted above. GI: No melena. : Nodysuria. Musculoskeletal: No myalgias. Neurologic: No strokes.Psychiatric: No depression. Endocrine: No diabetes. Hematologic: Noanemia.PHYSICAL EXAMINATION: S/he is alert and in no distressVITAL SIGNS: BP 148/76 Pulse 62 Ht 5' 5" (1.65m) Wt 181 lb 8 oz(82.3kg) BMI 30.20 kg/(m2).SHEENT: Skin is warm and dry. Pupils are round and reactive. Retinalvessels are grossly unremarkable. No xanthelasmas appreciated. Pharynxis benign. There is no oral cyanosis. Neck: supple. No adenopathy orthyroid enlargement. Chest: Clear to percussion and auscultation.Trachea is midline. Air entry is equal. There is no chest walltenderness. Cardiac: Regular rhythm. S1 and S2 are normal. PMI isnondisplaced. There is a 2/6 systolic ejection murmur, consistent withaortic stenosis. No click is heard. Carotids are brisk without bruits.JVP is less than 10 cm. Abdomen: Soft and nontender. There are nopulsatile masses or bruits. No liver enlargement. Bowel sounds areactive. : Deferred. Extremities: No edema. Pulses are intact andsymmetrical. No clubbing or cyanosis. No femoral bruits. Neurologic:Grossly normal motor and sensory. S/he is alert and oriented x4.Musculoskeletal: No joint deformities.Records from [facility] were reviewed. Troponin peaked at about 1.5.His EKG showed no acute change.Echocardiogram showed normal ejection fraction. No wall motion abnormalitywas described. There was mild aortic stenosis.There was evidence of left-sided pneumonia on chest x-ray although whitecount was normal. CTA showed no evidence of thromboembolic disease.She was discharged on aspirin, Plavix, Coreg, atorvastatin and valsartan..Electronically Signed:Sergio Caraballo MDFebruary 2017 1:34 PMCC: Fritz Little MD [facility] No Panel Information [facility] Vital Signs Date Time Vital Sign Value Performing Clinician Facility 06-07-2025 09:54-0400 Body temperature 97.3 [degF] Dr. Eh Huddleston MD Work Phone: [facility] 06-07-2025 09:54-0400 Diastolic blood pressure 56 mm[Hg] Dr. Eh Huddleston MD Work Phone: 4(272)595-157080 [place] [address] 06-07-2025 09:54-0400 Heart rate 67 /min Dr. Eh Huddleston MD Work Phone: 0(826)747-153780 [place] [address] 06-07-2025 09:54-0400 Respiratory rate 16 /min Dr. Eh Huddleston MD Work Phone: 2(240)674-991680 [place] [address] 06-07-2025 09:54-0400 SaO2% (BldA) [Mass fraction] 97 % Dr. Eh Huddleston MD Work Phone: 7(904)462-185280 [place] [address] 06-07-2025 09:54-0400 Systolic blood pressure 125 mm[Hg] Dr. Eh Huddleston MD Work Phone: 7(709)558-036880 [place] [address] 06-02-2025 16:23-0400 Body height 165.[address] Eh Huddleston MD Work Phone: [facility] 06-02-2025 16:23-0400 Body weight 81.[address] Eh Huddleston MD Work Phone: [facility] 06-01-2025 12:00-0400 Body mass index (BMI) [Ratio] 29.9 kg/m2 Dr. Eh Huddleston MD Work Phone: [facility] 05-27-2025 17:21-0400 Diastolic blood pressure 57 mm[Hg] Dr. Eh Huddleston MD Work Phone: [facility] 05-27-2025 17:21-0400 Heart rate 77 /min Dr. Eh Huddleston MD Work Phone: [facility] 05-27-2025 17:21-0400 Systolic blood pressure 156 mm[Hg] Dr. Eh Huddleston MD Work Phone: [facility] 05-27-2025 08:41-0400 Body temperature 97.6 [degF] Dr. Eh Huddleston MD Work Phone: 3(638)895-450680 [place] [address] 05-27-2025 08:41-0400 Respiratory rate 16 /min Dr. Eh Huddleston MD Work Phone: 9(471)310-477807 [place] [address] 05-27-2025 08:41-0400 SaO2% (BldA) [Mass fraction] 97 % Dr. Eh Huddleston MD Work Phone: 3(878)788-537680 [place] [address] 05-26-2025 15:27-0400 Body height 165.[address] Eh Huddleston MD Work Phone: 7(266)178-130907 [place] [address] 05-26-2025 15:27-0400 Body weight 80.[address] Eh Huddleston MD Work Phone: 1(216)420-533607 [place] [address] 05-25-2025 12:33-0400 Body mass index (BMI) [Ratio] 29.3 kg/m2 Dr. Eh Huddleston MD Work Phone: 5(946)104-195907 [place] [address] 05-14-2025 11:28-0400 Body temperature 97.8 [degF] Dr. Eh Huddleston MD Work Phone: 4(904)945-803607 [place] [address] 05-14-2025 11:28-0400 Diastolic blood pressure 43 mm[Hg] Dr. Eh Huddleston MD Work Phone: 6(607)406-795807 [place] [address] 05-14-2025 11:28-0400 Heart rate 74 /min Dr. Eh Huddleston MD Work Phone: 2(872)614-877707 [place] [address] 05-14-2025 11:28-0400 Respiratory rate 16 /min Dr. Eh Huddleston MD Work Phone: 9(043)374-921307 [place] [address] 05-14-2025 11:28-0400 SaO2% (BldA) [Mass fraction] 100 % Dr. Eh Huddleston MD Work Phone: 4(457)474-580807 [place] [address] 05-14-2025 11:28-0400 Systolic blood pressure 129 mm[Hg] Dr. Eh Huddleston MD Work Phone: [facility] 05-14-2025 00:24-0400 Body mass index (BMI) [Ratio] 27.3 kg/m2 Dr. Eh Huddleston MD Work Phone: 3(465)295-871780 [place] [address] 05-12-2025 14:41-0400 Body height 166.[address] Eh Huddleston MD Work Phone: 8(702)148-842807 [place] [address] 05-12-2025 14:41-0400 Body weight 75.[address] Eh Huddleston MD Work Phone: 0(630)255-657907 [place] [address] 05-07-2025 14:13-0400 Body temperature 97.6 [degF] Dr. Eh Huddleston MD Work Phone: 6(646)541-269907 [place] [address] 05-07-2025 14:13-0400 Diastolic blood pressure 56 mm[Hg] Dr. Eh Huddleston MD Work Phone: 1(409)958-255407 [place] [address] 05-07-2025 14:13-0400 Heart rate 75 /min Dr. Eh Huddleston MD Work Phone: 8(686)602-248907 [place] [address] 05-07-2025 14:13-0400 Respiratory rate 12 /min Dr. Eh Huddleston MD Work Phone: 5(389)982-349107 [place] [address] 05-07-2025 14:13-0400 SaO2% (BldA) [Mass fraction] 97 % Dr. Eh Huddleston MD Work Phone: 1(929)380-680707 [place] [address] 05-07-2025 14:13-0400 Systolic blood pressure 109 mm[Hg] Dr. Eh Huddleston MD Work Phone: 5(710)358-280607 [place] [address] 05-07-2025 07:09-0400 Body height 165.[address] Eh Huddleston MD Work Phone: 9(212)992-864207 [place] [address] 04-07-2025 07:10-0400 Body height 166.[address] Eh Huddleston MD Work Phone: 5(762)707-384807 [place] [address] 04-07-2025 07:10-0400 Body weight 78.[address] Eh Huddleston MD Work Phone: 3(353)733-289907 [place] [address] 03-28-2025 00:32-0400 Body weight 77.[address] Eh Huddleston MD Work Phone: [facility] 03-11-2025 10:21-0400 Body height 166.[address] Eh Huddleston MD Work Phone: [facility] 03-11-2025 10:21-0400 Body weight 77.[address] Eh Huddleston MD Work Phone: [facility] 03-02-2025 13:14-0400 Body height 166.4 cm Lucy Mccall CATEGORY MANAGER.MEDICAL RECORDS SPECIALIST Work Phone: [facility] 03-02-2025 13:14-0400 Body mass index (BMI) [Ratio] 27.2 kg/m2 Lucy Mccall CATEGORY MANAGER.MEDICAL RECORDS SPECIALIST Work Phone: [facility] 03-02-2025 13:14-0400 Body weight 75.3 kg Lucy Mcclal CATEGORY MANAGER.MEDICAL RECORDS SPECIALIST Work Phone: [facility] 03-02-2025 13:14-0400 Diastolic blood pressure 58 mm[Hg] Lucy Mccall CATEGORY MANAGER.MEDICAL RECORDS SPECIALIST Work Phone: [facility] 03-02-2025 13:14-0400 Respiratory rate 17 /min Lucy Mccall CATEGORY MANAGER.MEDICAL RECORDS SPECIALIST Work Phone: [facility] 03-02-2025 13:14-0400 SaO2% (BldA) [Mass fraction] 98 % Lucy Mccall CATEGORY MANAGER.MEDICAL RECORDS SPECIALIST Work Phone: [facility] 03-02-2025 13:14-0400 Systolic blood pressure 145 mm[Hg] Lucy Mccall CATEGORY MANAGER.MEDICAL RECORDS SPECIALIST Work Phone: [facility] 02-10-2025 11:37-0400 Body weight 77.[address] Eh Huddleston MD Work Phone: [facility] 01-14-2025 10:38-0400 Body mass index (BMI) [Ratio] 26.9 kg/m2 Dr. Eh Huddleston MD Work Phone: [facility] 01-14-2025 10:33-0400 Body height 166.[address] Eh Huddleston MD Work Phone: [facility] 01-14-2025 10:33-0400 Body weight 74.[address] Eh Huddleston MD Work Phone: [facility] 01-14-2025 10:16-0400 Diastolic blood pressure 53 mm[Hg] Dr. Eh Huddleston MD Work Phone: [facility] 01-14-2025 10:16-0400 Heart rate 64 /min Dr. Eh Huddleston MD Work Phone: [facility] 01-14-2025 10:16-0400 SaO2% (BldA) [Mass fraction] 97 % Dr. Eh Huddleston MD Work Phone: [facility] 01-14-2025 10:16-0400 Systolic blood pressure 128 mm[Hg] Dr. Eh Huddleston MD Work Phone: [facility] 12-23-2024 13:48-0500 Body height 165.[address] CATEGORY MANAGER.MEDICAL RECORDS SPECIALIST Work Phone: [facility] 12-23-2024 13:48-0500 Body mass index (BMI) [Ratio] 27.29 kg/m2 [place] CATEGORY MANAGER.MEDICAL RECORDS SPECIALIST Work Phone: [facility] 12-23-2024 13:48-0500 Body weight 74.[address] CATEGORY MANAGER.MEDICAL RECORDS SPECIALIST Work Phone: [facility] 12-23-2024 13:48-0500 Diastolic blood pressure 53 mm[Hg] [place] [address] CATEGORY MANAGER.MEDICAL RECORDS SPECIALIST Work Phone: [facility] 12-23-2024 13:48-0500 Heart rate 64 /min [place] [address] CATEGORY MANAGER.MEDICAL RECORDS SPECIALIST Work Phone: [facility] 12-23-2024 13:48-0500 Respiratory rate 18 /min [address]eng [place] [address] CATEGORY MANAGER.MEDICAL RECORDS SPECIALIST Work Phone: [facility] 12-23-2024 13:48-0500 SaO2% (BldA) [Mass fraction] 97 % [address]eng [place] [address] CATEGORY MANAGER.MEDICAL RECORDS SPECIALIST Work Phone: [facility] 12-23-2024 13:48-0500 Systolic blood pressure 128 mm[Hg] Deng [place] [address] CATEGORY MANAGER.MEDICAL RECORDS SPECIALIST Work Phone: [facility] 11-10-2024 09:59-0500 Body mass index (BMI) [Ratio] 27.29 kg/m2 Deng Arya CATEGORY MANAGER.MEDICAL RECORDS SPECIALIST Work Phone: [facility] 11-10-2024 09:59-0500 Body weight 74.39 kg Deng Arya CATEGORY MANAGER.MEDICAL RECORDS SPECIALIST Work Phone: [facility] 11-10-2024 09:59-0500 Diastolic blood pressure 55 mm[Hg] Deng Arya CATEGORY MANAGER.MEDICAL RECORDS SPECIALIST Work Phone: [facility] 11-10-2024 09:59-0500 Heart rate 62 /min Deng Arya CATEGORY MANAGER.MEDICAL RECORDS SPECIALIST Work Phone: [facility] 11-10-2024 09:59-0500 Respiratory rate 16 /min Deng Arya CATEGORY MANAGER.MEDICAL RECORDS SPECIALIST Work Phone: [facility] 11-10-2024 09:59-0500 SaO2% (BldA) [Mass fraction] 97 % Deng Arya CATEGORY MANAGER.MEDICAL RECORDS SPECIALIST Work Phone: [facility] 11-10-2024 09:59-0500 Systolic blood pressure 133 mm[Hg] Deng Arya CATEGORY MANAGER.MEDICAL RECORDS SPECIALIST Work Phone: [facility] 10-30-2024 09:13-0500 SaO2% (BldA) [Mass fraction] 100 % JAMES LINDO [facility] Comment on above: Order Comment: Specimen Type: ARTERIAL B LOOD SPECIMEN Ordering Facility: [facility] Address: [address] [place] [address] Performed By: #### A LL #### [facility] CLIA [id number] OF [facility] 10-29-2024 13:51-0500 Body height 165.1 cm [facility] 10-29-2024 13:51-0500 Body mass index (BMI) [Ratio] 27.12 kg/m2 [facility] 10-29-2024 13:51-0500 Body weight 73.94 kg [facility] 10-29-2024 13:51-0500 Diastolic blood pressure 70 mm[Hg] [facility] 10-29-2024 13:51-0500 Heart rate 65 /min [facility] 10-29-2024 13:51-0500 SaO2% (BldA) [Mass fraction] 96 % [facility] 10-29-2024 13:51-0500 Systolic blood pressure 138 mm[Hg] [facility] 08-31-2024 09:36-0500 Diastolic blood pressure 59 mm[Hg] Odilon Wells MD Work Phone: [facility] 08-31-2024 09:36-0500 Systolic blood pressure 144 mm[Hg] Odilon Wells MD Work Phone: [facility] 08-31-2024 09:33-0500 Body height 165.1 cm Odilon Wells MD Work Phone: [facility] 08-31-2024 09:33-0500 Body mass index (BMI) [Ratio] 27.22 kg/m2 Odilon Wells MD Work Phone: [facility] 08-31-2024 09:33-0500 Body weight 74.21 kg Odilon Wells MD Work Phone: [facility] 08-31-2024 09:33-0500 Heart rate 65 /min Odilon Wells MD Work Phone: [facility] 08-31-2024 09:33-0500 Respiratory rate 18 /min Odilon Wells MD Work Phone: [facility] 08-31-2024 09:33-0500 SaO2% (BldA) [Mass fraction] 98 % Odilon Wells MD Work Phone: [facility] Comment on above: RA 04-28-2024 14:32-0400 Body height 165.1 cm James Lindo MD Work Phone: [facility] 04-28-2024 14:32-0400 Body mass index (BMI) [Ratio] 27.12 kg/m2 James Lindo MD Work Phone: [facility] 04-28-2024 14:32-0400 Body weight 73.94 kg James Lindo MD Work Phone: [facility] 04-28-2024 14:32-0400 Diastolic blood pressure 66 mm[Hg] James Lindo MD Work Phone: [facility] 04-28-2024 14:32-0400 Heart rate 58 /min James Lindo MD Work Phone: [facility] 04-28-2024 14:32-0400 SaO2% (BldA) [Mass fraction] 97 % James Lindo MD Work Phone: [facility] 04-28-2024 14:32-0400 Systolic blood pressure 137 mm[Hg] James Lindo MD Work Phone: [facility] 04-06-2024 13:03-0400 Body height 165.1 cm Pacc 1 Work Phone: [facility] 04-06-2024 13:03-0400 Body mass index (BMI) [Ratio] 27.96 kg/m2 Pacc 1 Work Phone: [facility] 04-06-2024 13:03-0400 Body temperature 98.6 [degF] Pacc 1 Work Phone: [facility] 04-06-2024 13:03-0400 Body weight 76.2 kg Pacc 1 Work Phone: [facility] 04-06-2024 13:03-0400 Diastolic blood pressure 80 mm[Hg] Pacc 1 Work Phone: [facility] 04-06-2024 13:03-0400 Heart rate 60 /min Pacc 1 Work Phone: [facility] 04-06-2024 13:03-0400 Respiratory rate 14 /min Pacc 1 Work Phone: [facility] 04-06-2024 13:03-0400 SaO2% (BldA) [Mass fraction] 98 % Pacc 1 Work Phone: [facility] 04-06-2024 13:03-0400 Systolic blood pressure 124 mm[Hg] Pacc 1 Work Phone: [facility] 09-10-2023 14:04-0500 Body height 166.[address] Eh Huddleston Work Phone: [facility] 09-10-2023 14:04-0500 Body mass index (BMI) [Ratio] 26.9 kg/m2 Dr. Eh Huddleston Work Phone: [facility] 09-10-2023 14:04-0500 Body weight 74.[address] Eh Huddleston Work Phone: [facility] 09-10-2023 14:04-0500 Diastolic blood pressure 72 mm[Hg] Dr. Eh Huddleston Work Phone: [facility] 09-10-2023 14:04-0500 Heart rate 65 /min Dr. Eh Huddleston Work Phone: [facility] 09-10-2023 14:04-0500 Respiratory rate 18 /min Dr. Eh Huddleston Work Phone: [facility] 09-10-2023 14:04-0500 SaO2% (BldA) [Mass fraction] 98 % Dr. Eh Huddleston Work Phone: [facility] 09-10-2023 14:04-0500 Systolic blood pressure 133 mm[Hg] Dr. Eh Huddleston Work Phone: [facility] 08-05-2023 15:27-0400 Diastolic blood pressure 80 mm[Hg] Dr. Eh Huddleston Work Phone: [facility] 08-05-2023 15:27-0400 Systolic blood pressure 150 mm[Hg] Dr. Eh Huddleston Work Phone: [facility] 08-05-2023 14:46-0400 Body mass index (BMI) [Ratio] 26.4 kg/m2 Dr. Eh Huddleston Work Phone: [facility] 08-05-2023 14:46-0400 Body weight 73.[address] Eh Huddleston Work Phone: [facility] 08-05-2023 14:46-0400 Heart rate 66 /min Dr. Eh Huddleston Work Phone: [facility] 08-05-2023 14:46-0400 Respiratory rate 18 /min Dr. Eh Huddleston Work Phone: [facility] 08-05-2023 14:46-0400 SaO2% (BldA) [Mass fraction] 97 % Dr. Eh Huddleston Work Phone: [facility] 06-06-2022 13:05-0400 Body height 166.[address] Eh Huddleston Work Phone: [facility] Work Phone: 06-06-2022 13:05-0400 Body mass index (BMI) [Ratio] 28.2 kg/m2 Dr. Eh Huddleston Work Phone: [facility] Work Phone: 06-06-2022 13:05-0400 Body weight 78.[address] Eh Huddleston Work Phone: [facility] Work Phone: 06-06-2022 13:05-0400 Diastolic blood pressure 80 mm[Hg] Dr. Eh Huddleston Work Phone: [facility] Work Phone: 06-06-2022 13:05-0400 Heart rate 56 /min Dr. Eh Huddleston Work Phone: [facility] Work Phone: 06-06-2022 13:05-0400 Respiratory rate 18 /min Dr. Eh Hdudleston Work Phone: [facility] Work Phone: 06-06-2022 13:05-0400 Systolic blood pressure 148 mm[Hg] Dr. hE Huddleston Work Phone: [facility] Work Phone: Encounters Encounter Date Encounter Type Care Provider Facility Start: 06-15-2025 End: 06-15-2025 ambulatory Odilon Wells MD Work Phone: Cardiology Comment on above: Per our discussion Start: 06-15-2025 End: 06-15-2025 E-mail encounter from caregiver Odilon Wells MD Work Phone: Cardiology Start: 06-10-2025 ambulatory [facility] Facility:[facility] Start: 06-08-2025 ambulatory [facility] Facility:[facility] Start: 06-08-[address] Vimal culver MD -[facility] Start: 06-07-[address] [place] [address] Facility:[facility] Start: 06-03-2025 Non-patient / Non-visit Dr. Katelyn quijano MD -[facility] Start: 06-01-2025 Non-patient / Non-visit Dr. Basim lópez MD -[facility] Start: 06-01-2025 End: 06-01-[address] Eh Huddleston MD Work Phone: -Cardiovascular Services Start: 06-01-2025 End: 06-01-[address] Eh Huddleston MD -Cardiovascular Services Work Phone: Start: 06-01-2025 End: 06-01-2025 ambulatory [facility] Facility:[facility] Start: 05-14-2025 ambulatory Katelyn Kuhn Facility: [facility] Start: 05-14-2025 End: 06-07-2025 Evaluation and management of inpatient Dr. Eh Huddleston MD -Transitional Care Unit Start: 05-14-2025 Non-patient / Non-visit Dr. Manny Murdock MD [facility] Work Phone: Start: 05-13-2025 Non-patient / Non-visit Dr. Manny Murdock MD [facility] Work Phone: Start: 05-12-2025 Non-patient / Non-visit Dr. Manny Murdock MD [facility] Work Phone: Start: 05-11-2025 ambulatory Tracy Vincent Facility:[facility] Start: 05-11-2025 Non-patient / Non-visit Dr. Tracy tabor MD -[facility] Start: 05-11-2025 Non-patient / Non-visit Dr. Paige Casiano [facility] Work Phone: Start: 05-10-2025 Non-patient / Non-visit Dr. Paige Casiano [facility] Work Phone: Start: 05-09-2025 Non-patient / Non-visit Dr. Paige Casiano [facility] Work Phone: Start: 05-08-2025 Non-patient / Non-visit Dr. Paige Casiano [facility] Work Phone: Start: 05-08-2025 End: 05-08-2025 ambulatory Eh Huddleston Facility:[facility] Start: 05-08-2025 End: 05-08-2025 Non-patient / Non-visit Dr. Azul Pratt MD -[facility] Work Phone: Start: 05-07-2025 Non-patient / Non-visit Dr. Paige Casiano [facility] Work Phone: Start: 05-07-2025 ambulatory Sourav Ruiz y:[facility] Start: 05-07-2025 End: 05-14-2025 Evaluation and management of inpatient Dr. Sourav Casiano DO -[facility] Work Phone: Start: 04-28-2025 End: 05-27-[address] Eh Huddleston MD Work Phone: -Cardiac Rehab Work Phone: Start: 04-28-[address] Eh torres MD Work Phone: -Cardiac Rehab Work Phone: Start: 04-28-2025 End: 05-27-[address] Eh Huddleston MD Work Phone: -Cardiac Rehab Start: 04-26-2025 End: 04-26-[address] Eh Huddleston MD Work Phone: -Cardiac Rehab Start: 04-26-2025 End: 04-26-[address] Eh Huddleston MD Work Phone: -Cardiac Rehab Work Phone: Start: 04-02-[address] Eh torres MD Work Phone: -Cardiac Rehab Work Phone: Start: 03-31-2025 End: 03-31-[address] Eh Huddleston MD Work Phone: [facility] Work Phone: Start: 03-31-2025 End: 03-31-[address] Eh Huddleston MD -Laboratory Work Phone: Start: 03-31-2025 End: 03-31-2025 ambulatory Eh Huddleston Facility:[facility] Start: 03-26-2025 End: 03-26-2025 Refill Odilon Wells MD Work Phone: Cardiology Comment on above: Refill Request Start: 03-24-2025 End: 03-27-[address] Eh Huddleston MD Work Phone: [facility] Work Phone: Start: 03-24-2025 End: 03-27-[address] Eh Huddleston MD Work Phone: -Cardiac Rehab Work Phone: Start: 03-11-2025 End: 03-11-2025 Telephone encounter Odilon Wells MD Work Phone: Cardiology Comment on above: Insurance Authorizat ion Start: 03-05-2025 End: 03-05-2025 Telephone encounter Lucy Mccall CATEGORY MANAGER.MEDICAL RECORDS SPECIALIST Work Phone: Cardiology Start: 03-04-2025 End: 03-04-2025 Telephone encounter Lucy Mccall CATEGORY MANAGER.MEDICAL RECORDS SPECIALIST Work Phone: Cardiology Start: 03-02-2025 End: 03-02-2025 Patient encounter procedure Lucy Mccall CATEGORY MANAGER.MEDICAL RECORDS SPECIALIST Work Phone: Cardiology Comment on above: Mixed hyperlipidemia (Primary Dx); S/P TAVR (transcatheter aortic valve replacement); Chronic diastolic congestive heart failure (HCC); 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; Essential (primary) hypertension; Acute deep vein thrombosis (DVT) of calf muscle vein of right lower extremity (HCC) Start: 03-02-2025 End: 03-02-2025 ambulatory EH HUDDLESTON Facility:[facility] Start: 03-02-2025 End: 03-02-2025 Subsequent hospital visit by physician Meeta Parmar (I-Stat) Work Phone: Radiology Comment on above: Mixed hyperlipidemia [E78.2] Start: 03-02-2025 ambulatory ODILON WELLS Facility:[facility] Start: 03-02-2025 End: 03-02-2025 ambulatory ODILON TAMPA Facility:[facility] Start: 03-01-2025 End: 03-01-2025 Telephone encounter Odilon Wells MD Work Phone: Cardiology Start: 02-24-2025 End: 02-24-[address] [place] [address] Facility:[facility] Start: 02-24-2025 End: 02-24-[address] Eh Huddleston MD Work Phone: -Cardiac Rehab Work Phone: Start: 01-25-2025 End: 01-25-[address] Eh Huddleston MD Work Phone: [facility] Work Phone: Start: 01-25-2025 End: 01-25-[address] Eh Huddleston MD Work Phone: -Cardiac Rehab Work Phone: Start: 01-20-[address] hE torres MD Work Phone: -Cardiac Rehab Work Phone: Start: 01-14-2025 End: 01-14-[address] Eh Huddleston MD Work Phone: [facility] Work Phone: Start: 01-14-2025 End: 01-14-[address] Eh Huddleston MD Work Phone: -Cardiac Rehab Work Phone: Start: 01-14-2025 End: 01-14-[address] [place] [address]:[facility] Start: 01-08-2025 End: 01-08-2025 Telephone encounter Odilon Wells MD Work Phone: Cardiology Comment on above: notes and reports Start: 01-06-2025 End: 01-06-2025 ambulatory Jenelle Donohue RN [facility] Start: 01-06-2025 End: 01-06-2025 Patient encounter procedure Jenelle Donohue RN [facility] Start: 12-24-2024 End: 12-24-2024 Telephone encounter Odilon Wells MD Work Phone: Cardiology Start: 12-23-2024 End: 12-23-2024 Patient encounter procedure Deng Smith APRN.CNP Work Phone: Cardiology Comment on above: S/P TAVR (transcathe ter aortic valve replacement) (Primary Dx); Severe aortic stenosis; Nonrheumatic aortic valve stenosis; 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 (HCC); Mixed hyperlipidemia; Essential (primary) hypertension Start: 12-23-2024 End: 12-23-2024 [facility] Start: 12-23-2024 End: 12-23-2024 [facility] Start: 11-10-2024 End: 11-10-2024 Patient encounter procedure Deng Koenig APRN.MEDICAL RECORDS SPECIALIST Work Phone: Cardiology Comment on above: S/P TAVR (transcathe ter aortic valve replacement) (Primary Dx); Acute on chronic diastolic congestive heart failure (HCC); Nonrheumatic aortic valve stenosis; Mixed hyperlipidemia; Essential (primary) hypertension; 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 ([facility]) Start: 11-10-2024 End: 11-10-2024 ambulatory DENG ROUSSEAU Facility:[facility] Start: 10-30-2024 End: 10-30-2024 Orders Only Deng Koenig APRN.MEDICAL RECORDS SPECIALIST Work Phone: Cardiology Comment on above: PAD (peripheral irchard ry disease) ([facility]) (Primary Dx) Start: 10-30-2024 End: 10-30-2024 Evaluation and management of inpatient [facility] Facility:[facility] Start: 10-29-2024 End: 10-29-2024 Admission to same day surgery center Anesthesia Clearance Work Phone: [facility] Work Phone: Start: 10-29-2024 End: 10-29-2024 ambulatory EH [facility] Facility:[facility] Start: 10-29-2024 End: 10-29-2024 Patient encounter procedure Anesthesia Clearance Work Phone: Cardiothoracic Comment on above: Encounter for preope rative anesthesiology assessment for cardiac surgery (Primary Dx) Nonrheumatic aortic valve stenosis (Primary Dx); Aortic valve disorder Nonrheumatic aortic valve stenosis (Primary Dx); S/P TAVR (transcatheter aortic valve replacement) Start: 10-29-2024 End: 10-29-2024 ambulatory EH CHI FLAQUITO Facility:[facility] Start: 10-29-2024 End: 10-29-2024 Subsequent hospital visit by physician Xr Chest Main J1 Work Phone: Radiology Comment on above: Nonrheumatic aortic valve stenosis [I35.0] Start: 10-07-2024 End: 10-07-2024 ambulatory Luba Shraddha CATEGORY MANAGER.MEDICAL RECORDS SPECIALIST Work Phone: Cardiology Comment on above: TAVR Schedule Start: 10-01-2024 End: 10-01-[address] Eh Huddleston MD -Laboratory, Phy Office 3rd Flr Start: 10-01-2024 End: 10-01-2024 ambulatory Eh Huddleston Facility:[facility] Start: 09-16-2024 End: 09-16-2024 Telephone encounter Greg Nash CATEGORY MANAGER.MEDICAL RECORDS SPECIALIST Work Phone: Cardiology Comment on above: Dental form Start: 09-14-2024 End: 09-14-2024 ambulatory Kacy Jimenez CATEGORY MANAGER.NAPPER GRINDER Work Phone: Cardiology Comment on above: TAVR team meeting Start: 09-09-2024 End: 09-09-2024 ambulatory KACY JIMENEZ Facility:[facility] Start: 09-09-2024 End: 09-09-2024 Patient encounter status Eh Huddleston Work Phone: [facility] Start: 09-09-2024 End: 09-09-2024 Subsequent hospital visit by physician [employer] Work Phone: Molecular Imaging Comment on above: Severe aortic stenos is by prior echocardiogram [I35.0] Start: 09-09-2024 End: 09-09-2024 Office outpatient new 30 minutes Genoveva Arteaga MD Work Phone: Cardiothoracic Comment on above: Nonrheumatic aortic valve stenosis (Primary Dx) Start: 09-09-2024 Encounter for preprocedural cardiovascular examination JAMES LINDO [facility] Start: 09-09-2024 End: 09-09-2024 Patient encounter procedure Pulm Fct Lab J-1 Pulmonary Medicine Comment on above: Nonrheumatic aortic valve stenosis (Primary Dx) Start: 09-09-2024 End: 09-09-2024 Patient encounter status Pulm J-1 [facility] Start: 09-09-2024 End: 09-09-2024 ambulatory GENOVEVA ARTEAGA Pulmonary Medicine Comment on above: Spirometry Start: 09-09-2024 End: 09-09-2024 ambulatory KACY JIMENEZ Facility:[facility] Start: 09-09-2024 End: 09-09-2024 Subsequent hospital visit by physician Rajan [facility] Start: 09-03-2024 End: 09-03-2024 ambulatory ODILON WELLS Facility:[facility] Start: 09-02-2024 End: 09-02-2024 Telephone encounter Odilon Wells MD Work Phone: Cardiology Comment on above: Patient Education Start: 08-31-2024 End: 08-31-[address] (I-Stat) Work Phone: [facility] Start: 08-31-2024 End: 08-31-2024 Subsequent hospital visit by physician Ct Main F30 (I-Stat) Work Phone: Radiology Comment on above: Severe aortic stenos is by prior echocardiogram [I35.0] Start: 08-31-2024 End: 08-31-2024 Subsequent hospital visit by physician Xr Chest Main J1 Work Phone: Radiology Comment on above: Severe aortic stenos is by prior echocardiogram [I35.0] Start: 08-31-2024 End: 08-31-2024 ambulatory Odilon Wells MD Work Phone: Cardiology Start: 08-31-2024 End: 08-31-2024 Patient encounter procedure Odilon Wells MD Work Phone: Cardiology Comment on above: Nonrheumatic aortic valve stenosis (Primary Dx); Coronary artery disease involving bear river coronary artery of bear river heart, unspecified whether angina present; Encounter to establish care; Pre-operative cardiovascular examination; Chronic diastolic congestive heart failure (HCC) Start: 08-31-2024 End: 08-31-2024 Patient encounter status Odilon Wells MD Work Phone: [facility] Start: 06-09-2024 ambulatory Kacy Jimenez CATEGORY MANAGER.NAPPER GRINDER Work Phone: Cardiology Start: 06-09-2024 Patient encounter procedure Kacy Jimenez CATEGORY MANAGER.NAPPER GRINDER Work Phone: Cardiology Comment on above: TAVR referral Start: 06-09-2024 Patient encounter status Kacy Jimenez APRN.NAPPER GRINDER Work Phone: [facility] Start: 05-26-2024 End: 05-26-2024 ambulatory WALI TRIANA Facility:[facility] Start: 05-26-2024 End: 05-26-2024 Patient encounter procedure Wali Triana MD Work Phone: Ophthalmology Comment on above: PCO (posterior capsu lar opacification), left (Primary Dx); Pseudophakia; Primary open angle glaucoma (POAG) of left eye, severe stage Start: 05-22-2024 Telephone encounter James Duvall nd, MD Work Phone: Cardiology Start: 04-28-2024 End: 04-28-2024 [facility] Start: 04-28-2024 End: 04-28-2024 Patient encounter procedure James Lindo MD Work Phone: Cardiology Comment on above: Non-rheumatic aortic stenosis (Primary Dx); Coronary artery disease due to lipid rich plaque Start: 04-28-2024 End: 04-28-2024 ambulatory JAMES LINDO Facility:[facility] Start: 04-27-2024 Orders Only James Millard Work Phone: Cardiology Start: 04-23-2024 Telephone encounter James Duvall nd, MD Work Phone: Cardiology Comment on above: Appointment Appointment (Cardiol ogist appt 04/28/2024 ) Start: 04-21-2024 Telephone encounter Azul kelly APRN.CNP Work Phone: Internal Medicine Comment on above: Appointment (Cardiol ogy scheduling to discuss TAVR ); TAVR Start: 04-21-2024 End: 04-21-2024 ambulatory WALI TRIANA Facility:[facility] Start: 04-21-2024 End: 04-21-2024 Patient encounter procedure Wali Triana MD Work Phone: Ophthalmology Comment on above: Pseudophakia (Primar y Dx); Pseudoexfoliation of lens capsule Start: 04-16-2024 Telephone encounter Berta prather PA-C Work Phone: Internal Medicine Comment on above: Concessions Manager - O ther Start: 04-15-2024 End: 04-15-2024 ambulatory THERESE RUELAS Facility:[facility] Start: 04-15-2024 Encounter for other preprocedural examination JAMES LINDO [facility] Start: 04-13-2024 Telephone encounter Berta prather PA-C Work Phone: Internal Medicine Comment on above: Concessions Manager - O ther Start: 04-06-2024 Telephone encounter Dorothy Han APRN.CNP Work Phone: Pre Anesthesia Comment on above: Request Outside [facility] Records Patient Question Start: 04-06-2024 End: 04-06-2024 Admission to establishment Pacc Katelyn 1 Work Phone: Pre Anesthesia Start: 04-06-2024 End: 04-06-2024 Anesthesia consultation Pac [place] 1 Work Phone: Pre Anesthesia Comment on above: Pre-operative examin ation (Primary Dx); Severe aortic stenosis by prior echocardiogram; 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 (HCC); Insomnia, unspecified type; Essential (primary) hypertension; Mixed hyperlipidemia; Glaucoma, unspecified glaucoma type, unspecified laterality Start: 04-06-2024 End: 04-06-2024 Preprocedural examination done [facility] Katelyn 1 Work Phone: [facility] Work Phone: Start: 01-17-2024 Preprocedural examination done Wali Triana MD Work Phone: [facility] Start: 01-17-2024 Telephone encounter Wali Triana MD Work Phone: Ophthalmology Comment on above: Schedule Surgery (Co urtesy call) Start: 01-16-2024 End: 01-16-2024 Patient encounter procedure Ultrasound Opht Main Work Phone: Ophthalmology Comment on above: Total, mature senile cataract (Primary Dx) Total, mature senile cataract (Primary Dx); Pseudoexfoliation of lens capsule; Blind hypertensive eye, right; Primary open angle glaucoma (POAG) of left eye, severe stage Start: 09-30-2023 End: 09-30-[address] Eh Huddleston Work Phone: [facility] Work Phone: Start: 09-30-2023 End: 09-30-[address] [facility]udd[facility]eston [facility] Flr Start: 09-10-2023 End: 09-10-[address] Eh Huddleston Work Phone: [facility] Work Phone: Start: 08-26-2023 Non-patient / Non-visit Dr. Collin Huddleston Work Phone: [facility] Start: 08-26-2023 End: 08-26-2023 Patient encounter procedure Dr. Eh Huddleston [facility] Phone: [facility] Work Phone: Start: 08-05-2023 End: 08-05-[address] Eh Huddleston Work Phone: [facility] Work Phone: Start: 03-28-2023 End: 03-28-2023 ambulatory [facility] Work Phone: Start: 03-28-2023 End: 03-28-2023 [facility] Start: 09-25-2022 End: 09-25-[address] Eh Huddleston Work Phone: [facility] Work Phone: Start: 09-25-2022 End: 09-25-[address] Eh Huddleston Work Phone: [facility] Office 3rd Flr Start: 07-09-2022 Non-patient / Non-visit Dr. Collin Huddleston Work Phone: [facility] Start: 07-09-2022 End: 07-09-[address] Eh Huddleston Work Phone: [facility] Work Phone: Start: 07-09-2022 End: 07-09-[address] Eh Huddleston Work Phone: [facility] Start: 06-06-2022 End: 06-06-[address] Eh Huddleston Work Phone: [facility] Start: 03-14-2022 End: 03-14-2022 Patient encounter procedure [facility] Phy Office 3rd Flr Start: 04-01-2018 Ambulatory DEVEN HUDDLESTON Facility:[facility] Start: 01-21-2018 Ambulatory Fritz Little Facility:[facility] Start: 01-20-2018 Ambulatory [facility] Facility :[facility] Start: 12-30-2017 End: 12-30-2017 Ambulatory [facility] Start: 12-23-2017 End: 12-23-2017 [facility] Procedures Date Procedure Procedure Detail Performing Clinician Start: 06-04-2025 [address] diff[address] e detection Dr. Eh Huddleston MD Work Phone: Start: 06-04-[address] Eh Huddleston MD Work Phone: Start: 06-04-2025 Plain X-ray abdomen Dr. Eh Huddleston MD Work Phone: Start: 06-04-2025 Iadna-dna/rna gi pth gn multiplex probe tq 6-11 Dr. Eh Huddleston MD Work Phone: Start: 06-04-[address] Eh Huddleston MD Work Phone: Start: 05-25-2025 Urnls dip stick/tabl et reagent auto microscopy Dr. Eh Huddleston MD Work Phone: Start: 05-25-[address] Eh torres MD Work Phone: Start: 05-21-[address] Eh Huddleston MD Work Phone: Start: 05-18-2025 Measurement of occul t blood in stool specimen using immunoassay Dr. Eh Huddleston MD Work Phone: Start: 05-15-2025 Measurement of occul t blood in stool specimen using immunoassay Dr. Eh Huddleston MD Work Phone: Start: 05-12-[address] Eh Huddleston MD Work Phone: Start: 05-11-2025 MRI of brain without contrast Dr. Eh Huddleston MD Work Phone: Start: 05-11-2025 Urnls dip stick/tabl et reagent auto microscopy Dr. Eh Huddleston MD Work Phone: Start: 05-10-[address] Eh torres MD Work Phone: Start: 05-10-2025 CT angiography of he ad and neck Dr. Eh Huddleston MD Work Phone: Start: 05-10-2025 CT of head without contrast Dr. Eh Huddleston MD Work Phone: Start: 05-09-2025 Open reduction of fr acture of femur with internal fixation Dr. Eh Huddleston MD Work Phone: Start: 05-09-2025 Fluoroscopic guidance Freeman Huddleston MD Work Phone: Start: 05-09-2025 Plain X-ray of femur Dr Asher Huddleston MD Work Phone: Start: 05-07-2025 Plain X-ray of femur Dr Asher Huddleston MD Work Phone: Start: 05-07-2025 Plain radiography of pelvis Dr. Eh Huddleston MD Work Phone: Start: 03-31-2025 Vitamin D, 25-hydrox y measurement Dr. Eh Huddleston MD Work Phone: Comment on above: Vitamin D StatusDefi ciency: <20 ng/mL (50nmol/L)Insufficiency: 20-30 ng/mL (50-75 nmol/L)Sufficiency: 30-100 ng/mL (75-250 nmol/L)Toxicity: >100 ng/mL (>250 nmol/L) Start: 03-02-2025 Ct heart contrast ev al cardiac structure&morph Odilon Wells MD Work Phone: Start: 03-02-2025 Creatinine [Mass/vol ume] in Serum or Plasma [facility] Provider Start: 10-29-2024 Antibody screen JAMES MUDROCK Comment on above: Order Comment: Speci men Type: BLOOD SPECIMENOrdering Facility: [facility] Address: [address] [place] [address] Performed By: #### T [id number] ####CC MAIN BLOOD BANKCLIA [id number] [address] Start: 10-29-2024 Radiologic exam ches t 2 views Luba Llanes CATEGORY MANAGER.MEDICAL RECORDS SPECIALIST Work Phone: Start: 09-09-2024 Rp loclzj henry spect w/ct 1 area 1 day imaging Kacy Bañuelos Held CATEGORY MANAGER.NAPPER GRINDER Work Phone: Start: 09-09-2024 Spmtry w/vc expirato ry pedro w/wo mxml vol vntj Kacy Bañuelos Held CATEGORY MANAGER.NAPPER GRINDER Work Phone: Start: 08-31-2024 CTA CHEST/ABD/PEL (G ATED) W IVCON Kacy Bañuelos Held CATEGORY MANAGER.NAPPER GRINDER Work Phone: Start: 08-31-2024 Creatinine [Mass/vol ume] in Serum or Plasma [facility] Provider Start: 08-31-2024 Radiologic exam ches t 2 views Kacy Bañuelos Held CATEGORY MANAGER.NAPPER GRINDER Work Phone: Start: 01-16-2024 Ophthalmic ultrasoun d dx b-scan w/wo a-scan Wali Triana MD Work Phone: Start: 01-16-2024 IOL BIOMETRY W/ IOL CALC OU (BOTH EYES) Wali Triana MD Work Phone: Start: 01-16-2024 Computerized corneal topography uni/bi Wali Triana MD Work Phone: Plan of Treatment Date Care Activity Detail Author Start: 05-23-2031 Urine microalbumin profile DTaP,Tdap,Td Vaccine (2 - Td or Tdap) [facility] Start: 12-23-2027 Diabetes Screening Diabetes Screening [facility] Start: 10-31-2027 Diabetes Screening Diabetes Screening [facility] Start: 10-29-2027 Diabetes Screening Diabetes Screening [facility] Start: 08-31-2027 Diabetes Screening Diabetes Screening [facility] Start: 03-04-2026 End: 06-03-2026 Basic metabolic 2000 panel - Serum or Plasma BASIC METABOLIC PANEL Lab Routine S/P TAVR (transcatheter aortic valve replacement) Severe aortic stenosis Expected: 03/04/2026, Expires: 06/03/2026 [facility] Comment on above: Expected: 03/04/2026, Expires: Start: 03-04-2026 End: 06-03-2026 Comprehensive metabolic 2000 panel - Serum or Plasma COMPREHENSIVE METABOLIC PANEL Lab Routine S/P TAVR (transcatheter aortic valve replacement) Severe aortic stenosis Expected: 03/04/2026, Expires: 06/03/2026 [facility] Comment on above: Expected: 03/04/2026, Expires: Start: 03-04-2026 End: 06-03-2026 Natriuretic peptide.B prohormone N-Terminal [Mass/volume] in Serum or Plasma NT PRO BNP Lab Routine S/P TAVR (transcatheter aortic valve replacement) Severe aortic stenosis Expected: 03/04/2026, Expires: 06/03/2026 [facility] Comment on above: Expected: 03/04/2026, Expires: Start: 08-31-2025 Hepatitis B surface antibody level LDL Cholesterol [facility] Start: 06-28-2025 Influenza vaccination [facility] Start: 06-14-2025 End: 06-14-2025 Patient encounter procedure [facility] Comment on above: S/P TAVR (transcatheter aortic valve rep lacement S/P TAVR (transcathe ter aortic valve replacement) Start: 06-07-2025 Patient discharge [facility] Start: 06-04-2025 Enteric precautions [facility] Start: 06-02-2025 Consultation [facility] Start: 06-01-2025 [facility] Start: 05-26-2025 Wound care [facility] Start: 05-25-2025 [facility] Start: 05-25-2025 Urine culture Urine Culture [facility] Start: 05-18-2025 Removal of urinary catheter [facility] Start: 05-17-2025 Speech therapy management [facility] Start: 05-17-2025 Speech therapy assessment [facility] Start: 05-16-2025 Contact precautions [facility] Start: 05-15-2025 Development of care plan [facility] Start: 05-15-2025 Developing a treatment plan [facility] Start: 05-14-2025 Following clinical pathway protocol [facility] Start: 05-14-2025 Verification routine [facility] Start: 05-14-2025 Wound care [facility] Start: 05-14-2025 Admission procedure [facility] Start: 05-14-2025 Introduction of urinary catheter [facility] Start: 05-14-2025 Measuring intake and output [facility] Start: 05-14-2025 Patient referral to dietitian [facility] Start: 05-14-2025 Referral to occupational therapist [facility] Start: 05-14-2025 Referral to service [facility] Start: 05-14-2025 Vital signs measurements [facility] Start: 05-14-2025 [facility] Start: 05-14-2025 Patient discharge [facility] Start: 05-14-2025 Patient referral to dietitian [facility] Start: 05-13-2025 Vital signs measurements [facility] Start: 05-13-2025 [facility] Start: 05-12-2025 Aspiration precautions [facility] Start: 05-12-2025 Cardiac monitoring [facility] Start: 05-12-2025 Catheterization of vein [facility] Start: 05-12-2025 Consultation [facility] Start: 05-12-2025 Elevation of head of bed [facility] Start: 05-12-2025 Exercises [facility] Start: 05-12-2025 Notification of physician [facility] Start: 05-12-2025 Patient referral to dietitian [facility] Start: 05-12-2025 Referral to occupational therapist [facility] Start: 05-12-2025 Referral to service [facility] Start: 05-12-2025 Speech therapy assessment [facility] Start: 05-12-2025 Tobacco use cessation education [facility] Start: 05-12-2025 End: 05-12-2025 [facility] Start: 05-12-2025 Vital signs measurements [facility] Start: 05-11-2025 Telemedicine consultation with patient [facility] Start: 05-11-2025 End: 05-11-2025 Administration of blood product [facility] Start: 05-10-2025 [facility] Start: 05-10-2025 [facility] Start: 05-10-2025 Blood culture Blood Culture [facility] Start: 05-09-2025 Following clinical pathway protocol [facility] Start: 05-09-2025 Ambulation therapy management [facility] Start: 05-09-2025 Application of device [facility] Start: 05-09-2025 Exercises [facility] Start: 05-09-2025 Following clinical pathway protocol [facility] Start: 05-09-2025 Introduction of urinary catheter [facility] Start: 05-09-2025 Neurovascular assessment [facility] Start: 05-09-2025 Patient education [facility] Start: 05-09-2025 Provision of activity privileges [facility] Start: 05-09-2025 Referral to occupational therapist [facility] Start: 05-09-2025 Referral to service [facility] Start: 05-09-2025 Vital signs measurements [facility] Start: 05-09-2025 Wound care [facility] Start: 05-09-2025 [facility] Start: 05-08-2025 Following clinical pathway protocol [facility] Start: 05-08-2025 Measuring intake and output [facility] Start: 05-08-2025 Measuring intake and output [facility] Start: 05-07-2025 Measuring intake and output [facility] Start: 05-07-2025 Measuring intake and output [facility] Start: 05-07-2025 Application of ice collar, cap or bag [facility] Start: 05-07-2025 Bedrest [facility] Start: 05-07-2025 Following clinical pathway protocol [facility] Start: 05-07-2025 Assessment of risk of venous thromboembolism [facility] Start: 05-07-2025 Bedrest [facility] Start: 05-07-2025 Catheterization of vein [facility] Start: 05-07-2025 Consultation [facility] Start: 05-07-2025 Insertion of catheter into peripheral vein [facility] Start: 05-07-2025 Providing care according to standard [facility] Start: 05-07-2025 Referral to occupational therapist [facility] Start: 05-07-2025 Referral to service [facility] Start: 05-07-2025 [facility] Start: 05-07-2025 Hospital admission, emergency, from emergency room, medical nature [facility] Start: 05-07-2025 Verification routine [facility] Start: 05-07-2025 Admission procedure [facility] Start: 03-23-2025 End: 03-23-2025 Patient encounter procedure [facility] Comment on above: DX: CAD; HTN; HLD Start: 03-22-2025 End: 12-23-2025 US Lower extremity artery US LEG ARTERIAL PERIPH UNL [facility]AS LAB Vascular Lab Routine Mixed hyperlipidemia Essential (primary) hypertension 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 (HCC) Nonrheumatic aortic valve 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) Severe aortic stenosis Expected: 03/22/2025, Expires: 12/23/2025 [facility] Comment on above: Expected: 03/22/2025, Expires: Start: 03-22-2025 End: 12-23-2025 US Lower extremity artery - bilateral PVR ANK/CEE/TOE LARRY [facility] Vascular Lab Routine Mixed hyperlipidemia Essential (primary) hypertension 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 (HCC) Nonrheumatic aortic valve 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) Severe aortic stenosis Expected: 03/22/2025, Expires: 12/23/2025 [facility] Comment on above: Expected: 03/22/2025, Expires: Start: 03-22-2025 End: 12-23-2025 US.doppler Extremity arteries - bilateral for physiologic artery study PVR ANK PRESS LARRY [facility] Vascular Lab Routine Mixed hyperlipidemia Essential (primary) hypertension 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 (HCC) Nonrheumatic aortic valve 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) Severe aortic stenosis Expected: 03/22/2025, Expires: 12/23/2025 [facility] Comment on above: Expected: 03/22/2025, Expires: Start: 03-02-2025 End: 03-02-2025 Patient encounter procedure [facility] Comment on above: DX: CAD; HTN; HLD PROCEED WITH CHECK I N Start: 01-06-2025 End: 01-06-2025 Patient encounter procedure Radiology Comment on above: Mixed hyperlipidemia Start: 12-23-2024 End: 12-23-2024 Patient encounter procedure [facility] Med [facility] Comment on above: PAD (peripheral artery disease) S/P TAVR Start: 12-23-2024 End: 12-23-2024 [facility] J1-4 Dra nathen Hendricks Comment on above: LAB S/P TAVR Start: 11-30-2024 End: 10-30-2025 US Lower extremity artery US LEG ARTERIAL PERIPH UNL [facility] Vascular Lab Routine PAD (peripheral artery disease) (HCC) Expected: 11/30/2024, Expires: 10/30/2025 [facility] Work Phone: Comment on above: Expected: 11/30/2024, Expires: Start: 11-10-2024 End: 11-10-2024 Patient encounter procedure 11/10/2024 9:45 AM EST Office Visit Cardiology [address] [id number] Deng Koenig, CATEGORY MANAGER.MEDICAL RECORDS SPECIALIST [address] [place] [address] [phone] S/P TAVR Cardiology Comment on above: S/P TAVR Start: 11-10-2024 End: 11-10-2024 ambulatory 11/10/2024 9:15 AM EST Results Only Cardiology [address] [place] [address] S/P TAVR Cardiology Comment on above: S/P TAVR Start: 10-30-2024 End: 10-30-2024 Anesthesia consultation 10/30/2024 6:30 AM EST Anesthesia Event Admitting [address] [id number] Domenic Presley DO [address] [id number] Admitting Start: 10-30-2024 End: 10-30-2024 Patient encounter procedure 10/30/2024 5:45 AM EST Office Visit Cardiology [address] [id number] COMMERCIAL TF- TAVR S3 vs ROMEL Cardiology Comment on above: COMMERCIAL TF- TAVR S3 vs ROMEL Start: 10-30-2024 End: 10-30-2024 Admission to same day surgery center Admitting Comment on above: TRANSCATHETER AORTIC VALVE REPLACEMENT ( TAVR/ESAU) W/ PROSTHETIC VALVE PERCUTANEOUS FEMORAL ARTERY APPROACH Start: 10-30-2024 End: 10-30-2024 ambulatory 10/30/2024 5:30 AM EST Procedure Cardiology [address] [id number] COMMERCIAL TF- TAVR S3 vs ROMEL Cardiology Comment on above: COMMERCIAL TF- TAVR S3 vs ROMEL Start: 10-30-2024 End: 10-30-2024 Replace aortic valve perq femoral artry approach TANYA ROTHMAN CT & VAS Start: 10-30-2024 Subsequent hospital visit by physician Admitting Comment on above: COMMERCIAL TF- TAVR S3 vs ROMEL, Procedur e on: 10/30/2024 at 5:30 am Start: 10-29-2024 End: 01-28-2025 CBC panel - Blood by Automated count COMPLETE BLOOD COUNT Lab Routine Nonrheumatic aortic valve 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) Expected: 10/29/2024, Expires: 01/28/2025 [facility] Comment on above: Expected: 10/29/2024, Expires: Start: 10-29-2024 End: 01-28-2025 CBC W Auto Differential panel - Blood COMPLETE BLOOD COUNT AND DIFFERENTIAL Lab STAT Nonrheumatic aortic valve stenosis Aortic valve disorder Expected: 10/29/2024 (Approximate), Expires: 01/28/2025 [facility] Comment on above: Expected: 10/29/2024 (Approximate), Expi res: 01/28/2025 Start: 10-29-2024 End: 01-28-2025 Comprehensive metabolic 2000 panel - Serum or Plasma [facility] Comment on above: Expected: 10/29/2024 (Approximate), Expi res: 01/28/2025 Expected: 10/29/2024 , Expires: 01/28/2025 Start: 10-29-2024 End: 01-28-2025 CONFIRM BLOOD TYPE CONFIRM BLOOD TYPE Blood Bank STAT Nonrheumatic aortic valve stenosis Aortic valve disorder Expected: 10/29/2024 (Approximate), Expires: 01/28/2025 [facility] Comment on above: Expected: 10/29/2024 (Approximate), Expi res: 01/28/2025 Start: 10-29-2024 End: 01-28-2025 HIGH SENSITIVITY TROPONIN T HIGH SENSITIVITY TROPONIN T Lab STAT Nonrheumatic aortic valve stenosis Aortic valve disorder Expected: 10/29/2024 (Approximate), Expires: 01/28/2025 [facility] Comment on above: Expected: 10/29/2024 (Approximate), Expi res: 01/28/2025 Start: 10-29-2024 End: 01-28-2025 Lipoprotein a [Mass/volume] in Serum or Plasma LIPOPROTEIN (A) Lab STAT Nonrheumatic aortic valve stenosis Aortic valve disorder Expected: 10/29/2024 (Approximate), Expires: 01/28/2025 [facility] Comment on above: Expected: 10/29/2024 (Approximate), Expi res: 01/28/2025 Start: 10-29-2024 End: 01-28-2025 Natriuretic peptide.B prohormone N-Terminal [Mass/volume] in Serum or Plasma [facility] Comment on above: Expected: 10/29/2024 (Approximate), Expi res: 01/28/2025 Expected: 10/29/2024 , Expires: 01/28/2025 Start: 10-29-2024 End: 01-28-2025 PT panel - Platelet poor plasma by Coagulation assay PROTHROMBIN TIME Lab STAT Nonrheumatic aortic valve stenosis Aortic valve disorder Expected: 10/29/2024 (Approximate), Expires: 01/28/2025 [facility] Work Phone: Comment on above: Expected: 10/29/2024 (Approximate), Expi res: 01/28/2025 Start: 10-29-2024 End: 01-28-2025 TYPE AND SCREEN,30 DAY TYPE AND SCREEN,30 DAY Blood Bank STAT Nonrheumatic aortic valve stenosis Aortic valve disorder Expected: 10/29/2024 (Approximate), Expires: 01/28/2025 [facility] Comment on above: Expected: 10/29/2024 (Approximate), Expi res: 01/28/2025 Start: 10-29-2024 End: 10-29-2024 Patient encounter procedure Radiology Comment on above: COMMERCIAL TF- TAVR S3 vs ROMEL Start: 10-29-2024 End: 10-29-2024 ambulatory [facility] J1-4 Dra nathen Hendricks Comment on above: COMMERCIAL TF- TAVR S3 vs ROMEL Start: 10-28-2024 Advance Directive Discussion Advance Directive Discussion [facility] Start: 10-28-2024 Medicare Advantage Annual Wellness Visit Medicare Advantage Annual Wellness Visit [facility] Start: 09-09-2024 End: 09-09-2024 ambulatory Pulmonary Medicine Comment on above: New TAVR Workup Start: 09-09-2024 End: 09-09-2024 Patient encounter procedure Cardiothorac ic Comment on above: New TAVR Workup NM SPECT/CT CARDIAC AMYLOID Start: 09-03-2024 End: 09-03-2024 Admission to same day surgery center 09/03/2024 4:45 PM EST - 09/03/2024 5:42 PM EST Surgery HOSP Sales Support Assistant [address] [place] [address] [place] [address] [place] [address]ON[address] W IMAGE INJECT & INTERP W LT HEART CATH W INJECT LT VENTRGRAPHY HOSP Sales Support Assistant Comment on above: CORONARY ANGIO W CATH PLACE W IMAGE INJE CT & INTERP W LT HEART CATH W INJECT LT VENTRGRAPHY Start: 09-03-2024 End: 09-03-2024 Cath plmt l hrt & arts w/njx & angio img s&i CORONARY ANGIO W CATH PLACE W IMAGE INJECT & INTERP W LT HEART CATH W INJECT LT VENTRGRAPHY Nonrheumatic aortic valve stenosis 09/03/2024 4:45 PM EST EDITING INTERN Start: 09-03-2024 Subsequent hospital visit by physician 09/03/2024 4:45 PM EST Hospital Encounter HOSP Sales Support Assistant [address] [place] [address] [place] [address] [place] [address] Nonrheumatic aortic valve stenosis [I35.0] HOSP Sales Support Assistant Comment on above: Nonrheumatic aortic valve stenosis [I35. 0] Start: 09-03-2024 End: 09-03-2024 Patient encounter procedure 09/03/2024 1:00 PM EST Office Visit Admitting [address] [place] [address] ADMIT Admitting Comment on above: ADMIT Start: 09-03-2024 End: 09-03-2024 ambulatory Cardiology Comment on above: New TAVR Workup Start: 07-28-2024 End: 07-28-2024 Patient encounter procedure 07/28/2024 1:15 PM EDT Office Visit [facility] Ophthalmology [address] [id number] Wali Triana MD [address] [place] [address] Follow up per patient Ophthalmology Comment on above: Follow up per patient Start: 06-28-2024 Covid-19 Vaccine () Covid-19 Vaccine () [facility] Start: 06-28-2024 Influenza vaccination [facility] Start: 06-22-2024 End: 09-21-2024 CBC W Auto Differential panel - Blood COMPLETE BLOOD COUNT AND DIFFERENTIAL Lab Routine Severe aortic stenosis by prior echocardiogram Encounter for preprocedural cardiovascular examination Aortic valve disorder Expected: 06/22/2024 (Approximate), Expires: 09/21/2024 [facility] Comment on above: Expected: 06/22/2024 (Approximate), Expi res: 09/21/2024 Start: 06-22-2024 End: 09-21-2024 Comprehensive metabolic 2000 panel - Serum or Plasma COMPREHENSIVE METABOLIC PANEL Lab Routine Severe aortic stenosis by prior echocardiogram Encounter for preprocedural cardiovascular examination Aortic valve disorder Expected: 06/22/2024 (Approximate), Expires: 09/21/2024 [facility] Comment on above: Expected: 06/22/2024 (Approximate), Expi res: 09/21/2024 Start: 06-22-2024 End: 09-21-2024 HIGH SENSITIVITY TROPONIN T HIGH SENSITIVITY TROPONIN T Lab Routine Severe aortic stenosis by prior echocardiogram Encounter for preprocedural cardiovascular examination Aortic valve disorder Expected: 06/22/2024 (Approximate), Expires: 09/21/2024 [facility] Comment on above: Expected: 06/22/2024 (Approximate), Expi res: 09/21/2024 Start: 06-22-2024 End: 09-21-2024 Lipoprotein a [Mass/volume] in Serum or Plasma LIPOPROTEIN (A) Lab Routine Severe aortic stenosis by prior echocardiogram Encounter for preprocedural cardiovascular examination Aortic valve disorder Expected: 06/22/2024 (Approximate), Expires: 09/21/2024 [facility] Comment on above: Expected: 06/22/2024 (Approximate), Expi res: 09/21/2024 Start: 06-22-2024 End: 09-21-2024 Natriuretic peptide.B prohormone N-Terminal [Mass/volume] in Serum or Plasma NT PRO BNP Lab Routine Severe aortic stenosis by prior echocardiogram Encounter for preprocedural cardiovascular examination Aortic valve disorder Expected: 06/22/2024 (Approximate), Expires: 09/21/2024 [facility] Comment on above: Expected: 06/22/2024 (Approximate), Expi res: 09/21/2024 Start: 06-09-2024 End: 09-08-2024 CREATININE BLD CREATININE BLD Lab Routine Severe aortic stenosis by prior echocardiogram Encounter for preprocedural cardiovascular examination Aortic valve disorder Expected: 06/09/2024, Expires: 09/08/2024 [facility] Comment on above: Expected: 06/09/2024, Expires: Start: 05-26-2024 End: 05-26-2024 Patient encounter procedure Ophthalmolog y Comment on above: 1 MONTH 1 MONTH va iop mrx o u dfe operative eye Start: 04-28-2024 End: 04-28-2024 Patient encounter procedure 04/28/2024 3:30 PM EDT Office Visit Cardiology [address] [id number] Aortic valve stenosis, etiology of cardiac valve disease unspecified [I35.0] Cardiology Comment on above: Aortic valve stenosis, etiology of cardi ac valve disease unspecified [I35.0] Start: 04-28-2024 End: 07-28-2024 Natriuretic peptide.B prohormone N-Terminal [Mass/volume] in Serum or Plasma [facility] Work Phone: Comment on above: Expected: 04/28/2024, Expires: Start: 04-28-2024 End: 04-28-2024 Patient encounter procedure 04/28/2024 1:45 PM EDT Office Visit Cardiology [address] [place], [place] [id number] James Lindo MD [address] [place], [place] [id number] Aortic valve stenosis, etiology of cardiac valve disease unspecified [I35.0] Cardiology Comment on above: Aortic valve stenosis, etiology of cardi ac valve disease unspecified [I35.0] Start: 04-28-2024 End: 04-28-2024 ambulatory 04/28/2024 1:00 PM EDT Results Only Cardiology [address] [place], [place] [id number] Aortic valve stenosis, etiology of cardiac valve disease unspecified [I35.0] Cardiology Comment on above: Aortic valve stenosis, etiology of cardi ac valve disease unspecified [I35.0] Start: 04-21-2024 End: 04-21-2024 Patient encounter procedure 04/21/2024 1:15 PM EDT Office Visit OPHT Ophthalmology [address] [address] Wali Triana MD [address] [place] [address] POD1 Ophthalmology Comment on above: POD1 Start: 04-20-2024 End: 04-20-2024 Admission to same day surgery center Ophthalmology Comment on above: PHACOEMULSIFICATION CATARACT IMPLANT INT RAOCULAR LENS W/O ENDOSCOPIC CYCLOPHOTOCOAGULATION Start: 04-20-2024 Subsequent hospital visit by physician Ophthalmology Comment on above: Total, mature senile cataract [H25.89] Start: 04-20-2024 End: 04-20-2024 Xcapsl ctrc rmvl insj io lens prosth w/o ecp [facility] Start: 04-15-2024 End: 04-15-2024 Patient encounter procedure 04/15/2024 11:20 AM EDT Office Visit Cardiology [address] [place] [address] Aortic valve stenosis, etiology of cardiac valve disease unspecified [I35.0] Cardiology Comment on above: Aortic valve stenosis, etiology of cardi ac valve disease unspecified [I35.0] Start: 04-10-2024 End: 04-10-2024 Patient encounter procedure 04/10/2024 2:30 PM EDT Office Visit Vascular Medicine [address] [place] [address] Aortic valve stenosis, etiology of cardiac valve disease unspecified [I35.0] Vascular Medicine Comment on above: Aortic valve stenosis, etiology of cardi ac valve disease unspecified [I35.0] Start: 10-28-2023 Advance Directive Discussion Advance Directive Discussion [facility] Start: 10-28-2023 Behavioral Health Screening Behavioral Health Screening [facility] Start: 10-28-2023 Depression Assessment Depression Assessment [facility] Start: 06-28-2023 Covid-19 Vaccine () Covid-19 Vaccine () [facility] Start: 06-28-2023 Influenza vaccination Influenza Vaccine (#1) [facility] Start: 03-24-2022 Diabetes Screening Diabetes Screening [facility] Start: 07-14-2019 Hepatitis B surface antibody level LDL Cholesterol [facility] Start: 10-30-2014 Urine microalbumin profile DTaP,Tdap,Td Vaccine (1 - Tdap) [facility] Start: 2014 RSV Vaccine (1 - 1-dose 75+ series) RSV Vaccine (1 - 1-dose 75+ series) [facility] Start: 2004 Pneumococcal Vaccine: 65+ (1 of 1 - PCV) Pneumococcal Vaccine: 65+ (1 of 1 - PCV) [facility] Start: 2004 Screening for osteoporosis Bone Density Screening [facility] Start: 1999 RSV Vaccine (1 - 1-dose 60+ series) RSV Vaccine (1 - 1-dose 60+ series) [facility] Start: 1989 Shingrix Vaccine (1 of 2) Shingrix Vaccine (1 of 2) [facility] Start: 1958 Pneumococcal Vaccine: 50+ (1 of 2 - PCV) Pneumococcal Vaccine: 50+ (1 of 2 - PCV) [facility] Start: 1957 Anxiety Screening Anxiety Screening [facility] Start: 1957 Depression Screening Depression Screening [facility] Anion gap in Serum or Plasma [facility] Anion gap in Serum or Plasma [facility] Anion gap in Serum or Plasma [facility] BUN/Creatinine ratio [facility] BUN/Creatinine ratio [facility] BUN/Creatinine ratio [facility] Calcium [Mass/volume ] in Serum or Plasma [facility] Calcium [Mass/volume ] in Serum or Plasma [facility] Calcium [Mass/volume ] in Serum or Plasma [facility] Carbon dioxide, tota l [Moles/volume] in Central venous blood [facility] Carbon dioxide, tota l [Moles/volume] in Central venous blood [facility] Carbon dioxide, tota l [Moles/volume] in Central venous blood [facility] Cardiac event recording [facility] CARDIAC REHAB II OUT PT (ME,KS) CARDIAC REHAB II OUTPT (ME,KS) BIC Routine S/P TAVR (transcatheter aortic valve replacement) Ordered: 11/10/2024 [facility] Work Phone: Comment on above: Ordered: 11/10/2024 CARDIAC REHAB II OUT PT (ME,KS) CARDIAC REHAB II OUTPT (ME,KS) BIC Routine Mixed hyperlipidemia Essential (primary) hypertension 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 (HCC) Nonrheumatic aortic valve 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) Severe aortic stenosis Ordered: 12/23/2024 [facility] Work Phone: Comment on above: Ordered: 12/23/2024 Creatinine [Mass/vol ume] in Serum or Plasma [facility] Creatinine [Mass/vol ume] in Serum or Plasma [facility] Creatinine [Mass/vol ume] in Serum or Plasma [facility] End: 01-22-2026 CT Heart W contrast IV CT CARDIAC W IVCON Radiology Routine Mixed hyperlipidemia Essential (primary) hypertension 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 (HCC) Nonrheumatic aortic valve 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) Severe aortic stenosis 1 Occurrences starting 12/23/2024 until 01/22/2026 [facility] Comment on above: 1 Occurrences starting 12/23/2024 until 01/22/2026 End: 07-09-2025 CTA Chest vessels and Abdominal vessels and Pelvis vessels W contrast IV CTA CHEST/ABD/PEL (GATED) W IVCON Radiology Routine Severe aortic stenosis by prior echocardiogram Encounter for preprocedural cardiovascular examination Aortic valve disorder 1 Occurrences starting 06/09/2024 until 07/09/2025 [facility] Comment on above: 1 Occurrences starting 06/09/2024 until 07/09/2025 End: 04-28-2025 ECG COMPLETE ECG COMPLETE ECG Routine Non-rheumatic aortic stenosis 1 Occurrences starting 04/28/2024 until 04/28/2025 [facility] Comment on above: 1 Occurrences starting 04/28/2024 until 04/28/2025 End: 06-09-2025 ECG COMPLETE ECG COMPLETE ECG Routine Severe aortic stenosis by prior echocardiogram Encounter for preprocedural cardiovascular examination Aortic valve disorder 1 Occurrences starting 06/09/2024 until 06/09/2025 [facility] Comment on above: 1 Occurrences starting 06/09/2024 until 06/09/2025 End: 10-07-2025 ECG COMPLETE ECG COMPLETE ECG Routine Nonrheumatic aortic valve stenosis Aortic valve disorder 1 Occurrences starting 10/07/2024 until 10/07/2025 [facility] Comment on above: 1 Occurrences starting 10/07/2024 until 10/07/2025 End: 10-29-2025 ECG COMPLETE ECG COMPLETE ECG Routine Nonrheumatic aortic valve 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) 1 Occurrences starting 10/29/2024 until 10/29/2025 [facility] Comment on above: 1 Occurrences starting 10/29/2024 until 10/29/2025 End: 03-04-2026 ECG COMPLETE ECG COMPLETE ECG Routine S/P TAVR (transcatheter aortic valve replacement) Severe aortic stenosis 1 Occurrences starting 03/04/2025 until 03/04/2026 [facility] Comment on above: 1 Occurrences starting 03/04/2025 until 03/04/2026 End: 04-08-2025 Echocardiography ECHO Cardiology Routine Aortic valve stenosis, etiology of cardiac valve disease unspecified Preop examination 1 Occurrences starting 04/08/2024 until 04/08/2025 [facility] Work Phone: Comment on above: 1 Occurrences starting 04/08/2024 until 04/08/2025 End: 04-28-2025 Echocardiography ECHO Cardiology Routine Non-rheumatic aortic stenosis 1 Occurrences starting 04/28/2024 until 04/28/2025 [facility] Comment on above: 1 Occurrences starting 04/28/2024 until 04/28/2025 End: 10-29-2025 Echocardiography ECHO Cardiology Routine Nonrheumatic aortic valve 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) 1 Occurrences starting 10/29/2024 until 10/29/2025 [facility] Work Phone: Comment on above: 1 Occurrences starting 10/29/2024 until 10/29/2025 End: 03-04-2026 Echocardiography ECHO Cardiology Routine S/P TAVR (transcatheter aortic valve replacement) Severe aortic stenosis 1 Occurrences starting 03/04/2025 until 03/04/2026 [facility] Work Phone: Comment on above: 1 Occurrences starting 03/04/2025 until 03/04/2026 Erythrocyte mean cor puscular volume determination [facility] Erythrocyte mean cor puscular volume determination [facility] Erythrocyte mean cor puscular volume determination [facility] Erythrocyte mean cor puscular volume determination [facility] Glucose [Mass/volume ] in Serum or Plasma [facility] Glucose [Mass/volume ] in Serum or Plasma [facility] Glucose [Mass/volume ] in Serum or Plasma [facility] Hematocrit [Volume F raction] of Blood [facility] Hematocrit [Volume F raction] of Blood [facility] Hematocrit [Volume F raction] of Blood [facility] Hematocrit [Volume F raction] of Blood [facility] Hemoglobin [Mass/vol ume] in Blood [facility] Hemoglobin [Mass/vol ume] in Blood [facility] Hemoglobin [Mass/vol ume] in Blood [facility] Hemoglobin [Mass/vol ume] in Blood [facility] Leukocytes [#/volume ] in Blood [facility] Leukocytes [#/volume ] in Blood [facility] Leukocytes [#/volume ] in Blood [facility] Leukocytes [#/volume ] in Blood [facility] End: 07-09-2025 LUNG DIFFUSION CAPACITY (DLCO) LUNG DIFFUSION CAPACITY (DLCO) PFT Routine Severe aortic stenosis by prior echocardiogram Encounter for preprocedural cardiovascular examination Aortic valve disorder 1 Occurrences starting 06/09/2024 until 07/09/2025 [facility] Comment on above: 1 Occurrences starting 06/09/2024 until 07/09/2025 LUNG DIFFUSION CAPAC ITY (DLCO) LUNG DIFFUSION CAPACITY (DLCO) PFT Routine Severe aortic stenosis by prior echocardiogram Encounter for preprocedural cardiovascular examination Aortic valve disorder 09/09/2024 12:10 PM EST [facility] Work Phone: Mean corpuscular hem oglobin concentration determination [facility] Mean corpuscular hem oglobin concentration determination [facility] Mean corpuscular hem oglobin concentration determination [facility] Mean corpuscular hem oglobin concentration determination [facility] Mean corpuscular hem oglobin determination [facility] Mean corpuscular hem oglobin determination [facility] Mean corpuscular hem oglobin determination [facility] Mean corpuscular hem oglobin determination [facility] Measurement of renal function [facility] Measurement of renal function [facility] Measurement of renal function [facility] Neutrophil count [facility] Neutrophil count [facility] Neutrophil count [facility] Neutrophil count [facility] Neutrophil percent differential count [facility] Neutrophil percent differential count [facility] Neutrophil percent differential count [facility] Neutrophil percent differential count [facility] Platelets [#/volume] in Blood [facility] Platelets [#/volume] in Blood [facility] Platelets [#/volume] in Blood [facility] Platelets [#/volume] in Blood [facility] Potassium measurement [facility] Potassium measurement [facility] Potassium measurement [facility] Red blood cell count [facility] Red blood cell count [facility] Red blood cell count [facility] Red blood cell count [facility] RED BLOOD CELLS, ADULT RED BLOOD CELLS, ADULT Blood Bank Routine Nonrheumatic aortic valve stenosis Ordered: 10/29/[address] [facility] Work Phone: Comment on above: Ordered: 10/29/2024 Red cell distributio n width determination [facility] Red cell distributio n width determination [facility] Red cell distributio n width determination [facility] Red cell distributio n width determination [facility] Serum chloride measurement [facility] Serum chloride measurement [facility] Serum chloride measurement W [facility] Sodium measurement [facility] Sodium measurement [facility] Sodium measurement [facility] End: 07-09-2025 SPECT Heart for infarct W Tc-99m PYP IV NM SPECT/CT CARDIAC AMYLOID Radiology Routine Severe aortic stenosis by prior echocardiogram Encounter for preprocedural cardiovascular examination Aortic valve disorder 1 Occurrences starting 06/09/2024 until 07/09/2025 [facility] Comment on above: 1 Occurrences starting 06/09/2024 until 07/09/2025 End: 07-09-2025 SPIROMETRY BASELINE ONLY SPIROMETRY BASELINE ONLY PFT Routine Severe aortic stenosis by prior echocardiogram Encounter for preprocedural cardiovascular examination Aortic valve disorder 1 Occurrences starting 06/09/2024 until 07/09/2025 [facility] Work Phone: Comment on above: 1 Occurrences starting 06/09/2024 until 07/09/2025 SPIROMETRY BASELINE ONLY SPIROME TRY BASELINE ONLY PFT Routine Severe aortic stenosis by prior echocardiogram Encounter for preprocedural cardiovascular examination Aortic valve disorder 09/09/2024 12:10 PM EST [facility] Work Phone: Urea nitrogen [Mass/ volume] in Serum or Plasma [facility] Urea nitrogen [Mass/ volume] in Serum or Plasma [facility] Urea nitrogen [Mass/ volume] in Serum or Plasma [facility] US Carotid arteries - bilateral US CAROTID ARTERIES [facility] Vascular Lab Routine Severe aortic stenosis by prior echocardiogram Encounter for preprocedural cardiovascular examination Aortic valve disorder Ordered: 06/09/2024 [facility] Comment on above: Ordered: 06/09/2024 End: 03-02-2026 Lower extremity artery - bilateral [facility] Work Phone: Comment on above: 1 Occurrences starting 03/02/2025 until 03/02/2026 End: 10-30-2025 US.doppler Extremity arteries - bilateral for physiologic artery study PVR ANK PRESS [facility] Vascular Lab Routine PAD (peripheral artery disease) ([facility]) 1 Occurrences starting 10/30/2024 until 10/30/2025 [facility] Comment on above: 1 Occurrences starting 10/30/2024 until 10/30/2025 End: 03-02-2026 US.doppler Extremity arteries - bilateral for physiologic artery study PVR ANK PRESS [facility] Vascular Lab Routine S/P TAVR (transcatheter aortic valve replacement) Chronic diastolic congestive heart failure (HCC) 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 Mixed hyperlipidemia Essential (primary) hypertension 1 Occurrences starting 03/02/2025 until 03/02/2026 [facility] Comment on above: 1 Occurrences starting 03/02/2025 until 03/02/2026 End: 07-09-2025 XR Chest PA and Lateral XR CHEST 2V FRONTAL/LAT Radiology Routine Severe aortic stenosis by prior echocardiogram Encounter for preprocedural cardiovascular examination Aortic valve disorder 1 Occurrences starting 06/09/2024 until 07/09/2025 [facility] Comment on above: 1 Occurrences starting 06/09/2024 until 07/09/2025 End: 11-06-2025 XR Chest PA and Lateral XR CHEST 2V FRONTAL/LAT Radiology Routine Nonrheumatic aortic valve stenosis Aortic valve disorder 1 Occurrences starting 10/07/2024 until 11/06/2025 [facility] Comment on above: 1 Occurrences starting 10/07/2024 until 11/06/2025 [facility] Immunizations Immunization Date Immunization Notes Care Provider Fa kenzie 05-23-2021 tetanus toxoid, redu doug diphtheria toxoid, and acellular pertussis vaccine, adsorbed [facility] 09-08-2020 influenza, injectabl e, quadrivalent, preservative free Dr. Eh Huddleston MD Work Phone: [facility] 07-10-2019 hepatitis A vaccine, adult dosage Dr. Eh Huddleston MD Work Phone: [facility] 07-10-[address] Eh Huddleston MD Work Phone: [facility] 12-03-2017 influenza, injectabl e, quadrivalent, preservative free Dr. Eh Huddleston MD Work Phone: [facility] 10-29-2014 tetanus and diphther ia toxoids, adsorbed, preservative free, for adult use (2 Lf of tetanus toxoid and 2 Lf of diphtheria toxoid) Dr. Eh Huddleston MD Work Phone: [facility] 10-29-2014 tetanus and diphther ia toxoids, adsorbed, preservative free, for adult use (5 Lf of tetanus toxoid and 2 Lf of diphtheria toxoid) Ul[facility]ound Main Work Phone: [facility] Payers Date Payer Category Payer Self-pay [id number] 2013 Medicare HUMANA MEDICARE HU[employer]NA MEDICARE PPO [id number] 2013-Present [phone] [address] [address] [place] [address] PPO [id number] 2013 Medicare (Managed Care) RNI [place] [id number] 2013 Medicare [id number] Unknown [id number] 2.16.840.1.959687.3.579. 2.462 Unknown [id number] 2.16.840.1.441941.3.579. 2.462 Unknown [id number] 2.16.840.1.605038.3.579. 2.462 Unknown [id number] 2.16.840.1.973378.3.579. 2.462 Unknown [id number] 2.16.840.1.169407.3.579. 2.462 Unknown [id number] 2.16.840.1.805759.3.579. 2.462 Unknown [id number] 2.16.840.1.647949.3.579. 2.462 Unknown [id number] 2.16.840.1.861062.3.579. 2.462 Unknown [id number] 2.16.840.1.636749.3.579. 2.462 Unknown [id number] 2.16.840.1.034496.3.579. 2.462 Unknown [id number] 2.16.840.1.144272.3.579. 2.462 Unknown [id number] 2.16.840.1.414425.3.579. 2.462 Unknown [id number] 2.16.840.1.785945.3.579. 2.462 Unknown [id number] 2.16.840.1.481113.3.579. 2.462 Unknown [id number] 2.16.840.1.359913.3.579. 2.462 Unknown [id number] 2.16.840.1.406775.3.579. 2.462 Unknown [id number] 2.16.840.1.203719.3.579. 2.462 Unknown [id number] 2.16.840.1.630648.3.579. 2.462 Unknown [id number] 2.16.840.1.748257.3.579. 2.462 Unknown [id number] 2.16.840.1.661656.3.579. 2.462 Unknown [id number] 2.16.840.1.189945.3.579. 2.462 Unknown [id number] 2.16.840.1.195125.3.579. 2.462 Unknown [id number] 2.16.840.1.567154.3.579. 2.462 Unknown [id number] 2.16.840.1.568904.3.579. 2.462 Unknown [id number] 2.16.840.1.024933.3.579. 2.462 Unknown [id number] 2.16.840.1.138597.3.579. 2.462 Social History Date Type Detail Facility Start: 07-04-2021 End: 09-10-2023 Tobacco smoking status NHIS Unknown if ever smoked [facility] Start: 11-26-2017 None [facility] Start: 11-26-2017 Spouse/ Signif icant Other [facility] Start: 1940 Sex Assigned At Female [facility] Start: 01-16-2024 End: 05-07-2025 Tobacco smoking status INIS Never smoked tobacco [facility] Start: 01-16-2024 Tobacco use and exposure Smokeless tobacco non-user [facility] Start: 01-16-2024 End: 11-10-2024 Alcohol intake Lifetime non-drinker (finding) [facility] Start: 01-16-2024 End: 04-06-2024 History of Social function [facility] Start: 01-16-2024 End: 04-06-2024 Tobacco use panel [facility] Start: 09-28-2012 National Score (1-100), lower number is lower risk 48 [facility] Start: 1940 Sex Assigned At Not on file [facility] Start: 09-25-2024 Gender identity Identifies as female gender (finding) [facility] Start: 01-21-2025 End: 01-26-2025 Sex Female (finding) [facility] Start: 05-14-2025 End: 05-14-2025 Tobacco smoking status NHIS Smoker (finding) [facility] NEGATED: Highlighted row Not [facility] Medical Equipment Procedure Code Equipment Code Equipment Origin al Text Equipment Identifier Dates ORIF, fracture, femur, distal 4.5 CORTICAL SCREW FDA Start: 05-09-2025 ORIF, fracture, femur, distal 5.0 FLAT TIP FDA Start: 05-09-2025 ORIF, fracture, femur, distal 5.0 LOCKING SCREW FDA Start: 05-09-2025 ORIF, fracture, femur, distal 530 FLAT TIP FDA Start: 05-09-2025 ORIF, fracture, femur, distal 6.0 CANCELLOUS SCREW FDA Start: 05-09-2025 ORIF, fracture, femur, distal PLATE L DISTAL FEMUR GUILLE PRO FDA Start: 05-09-2025 ORIF, fracture, femur, distal ([id number]) Internal orthopaedic fixation system, plate/screw, non-bioabsorbable, sterile [id number] FDA Start: 05-09-2025 ORIF, fracture, femur, distal 4.5 CORTICAL SCREW FDA Start: 05-09-2025 ORIF, fracture, femur, distal 5.0 FLAT TIP FDA Start: 05-09-2025 ORIF, fracture, femur, distal 5.0 LOCKING SCREW FDA Start: 05-09-2025 ORIF, fracture, femur, distal 530 FLAT TIP FDA Start: 05-09-2025 ORIF, fracture, femur, distal 6.0 CANCELLOUS SCREW FDA Start: 05-09-2025 ORIF, fracture, femur, distal PLATE L DISTAL FEMUR GUILLE PRO FDA Start: 05-09-2025 ORIF, fracture, femur, distal 4.5 CORTICAL SCREW FDA Start: 05-09-2025 ORIF, fracture, femur, distal 5.0 FLAT TIP FDA Start: 05-09-2025 ORIF, fracture, femur, distal 5.0 LOCKING SCREW FDA Start: 05-09-2025 ORIF, fracture, femur, distal 530 FLAT TIP FDA Start: 05-09-2025 ORIF, fracture, femur, distal 6.0 CANCELLOUS SCREW FDA Start: 05-09-2025 ORIF, fracture, femur, distal PLATE L DISTAL FEMUR GUILLE PRO FDA Start: 05-09-2025 ORIF, fracture, femur, distal 4.5 CORTICAL SCREW FDA Start: 05-09-2025 ORIF, fracture, femur, distal 5.0 FLAT TIP FDA Start: 05-09-2025 ORIF, fracture, femur, distal 5.0 LOCKING SCREW FDA Start: 05-09-2025 ORIF, fracture, femur, distal 530 FLAT TIP FDA Start: 05-09-2025 ORIF, fracture, femur, distal 6.0 CANCELLOUS SCREW FDA Start: 05-09-2025 ORIF, fracture, femur, distal PLATE L DISTAL FEMUR GUILLE PRO FDA Start: 05-09-2025 [id number] Radha on Uva - [id number] Start: 04-20-2024 Device Proglide Perclose 6fr Closure Suture Mediate Knot Pusher Sterile - [id number] Start: 10-30-2024 Device Proglide Perclose 6fr Closure Suture Mediate Knot Pusher Sterile - [id number] Start: 10-30-2024 Device Proglide Perclose 6fr Closure Suture Mediate Knot Pusher Sterile - [id number] Start: 10-30-2024 Device Proglide Perclose 6fr Closure Suture Mediate Knot Pusher Sterile - [id number] Start: 10-30-2024 Valve Newell Sa pien 3 Ultra System 23mm - [id number] Start: 10-30-2024 Bx2 [id number] 7fr 135cm Cath Bx2 Hep Reduced Profile - [id number] Start: 10-30-2024 Goals Date Patient Goal Desired Activity /State Personal health goal Functional Status Date Assessment Result Facility 06-07-2025 Functional status Bedrest [facility] Work Phone: 06-06-2025 Functional status Assistive Ary tory Standard Walker [facility] Work Phone: 06-05-2025 Functional status Tolerates Activity Well [facility] Work Phone: 05-27-2025 Functional status Chair [facility] Work Phone: 05-14-2025 Functional status Activity Abili ty Unable to Assess [facility] Work Phone: 05-14-2025 Functional status Chair [facility] Work Phone: 11-01-2024 Are you deaf, or do you have serious difficulty hearing No 11/01/2024 9:56 AM Amrita Best, LOULOU No [facility] 11-01-2024 Are you blind, or do you have serious difficulty seeing, even when wearing glasses Yes 11/01/2024 9:56 AM Amrita Best, LOULOU Yes [facility] 11-01-2024 Do you have serious difficulty walking or climbing stairs No 11/01/2024 9:56 AM Amrita Best, LOULOU No [facility] 11-01-2024 Do you have difficul ty dressing or bathing No 11/01/2024 9:56 AM Amrita Best, LOULOU No [facility] 11-01-2024 Because of a physica l, mental, or emotional condition, do you have difficulty doing errands alone such as visiting a physician's office or shopping No 11/01/2024 9:56 AM Amrita Best RN No [facility] Mental Status Date Assessment Result Facility 06-07-2025 Cognitive function Voice/Name [facility] Work Phone: 05-29-2025 Cognitive function Appropriate;C ooperativ e [facility] Work Phone: 05-27-2025 Cognitive function Voice/Name [facility] Work Phone: 05-26-2025 Cognitive function Appropriate;C ooperativ e [facility] Work Phone: 05-14-2025 Cognitive function Voice/Name [facility] Work Phone: 11-01-2024 Because of a physica l, mental, or emotional condition, do you have serious difficulty concentrating, remembering, or making decisions No 11/01/2024 9:56 AM Amrita Best, LOULOU No [facility] Clinical Notes 01-16-2024 to 06-04-2025 Note Date & Type Note Facility 06-04-2025 Discharge summary Note Date/Time June 04, 2025 2:57pm [facility] Medical Records Department [address] [place] [address] Transfer to [facility] MR#: [id number] Acct: [id number] Name: GOGO WARE p #:[id number] : 1940 85 From: Eh Huddleston MD PCP: Dr. Eh Huddleston MD Status:ADM I N Certification of patient admission REQUIRED AT TIME OF ADMISSION. I CERTIFY THAT POST-HOSPITAL F SERVICES ARE REQUIRED TO BE GIVEN ON AN IN-PATIENT BASIS BECAUSE OF THE ABOVE NAMED PATIENT'S NEED FOR FPC CARE ON A CONTINUING BASIS FOR THE CONDITION(S) FOR WHICH HE/SHE WAS RECEIVING IN-PATIENT HOSPITAL SERVICES PRIOR TO HIS/HER TRANSFER TO THE [facility]. 06/04/25 0237<Electronically signed by Eh Huddleston MD> Diet Diet Order/Speech Therapy: INPATIENT Hospital Diet / Speech Therapy Order(s) 05/14/25 15:25 Diet: Cardiac - Heart Healthy Food consistency:: Regular Liquid Consistency:: Regular/Thin Type of Dietary Supplement:: Ensure Plus High Protein Diet Comments: 240ml EPHP tid; does not like white bread Routine Orders/Code Status Code Status: Full Code DC O2, CPAP, BIPAP needs Home O2 Discharge instructions: No Wound(s) right upper arm: Wound Type: Abrasion right outer knee: Wound Type: Abrasion hip: Wound Type: Surgical Incision Dressing Change: ABDs bilat buttocks: Wound Type: shear injury Dressing Change: mepilex- 06/01/25 maximiliano cleft: Wound Type: MASB Dressing Change: mepilex- 06/01/25 Therapies Weight Bearing: Weight bearing as tolerated Extremity Affected:: Bilateral Lower Physical Therapy: Eval and Treat Occupational Therapy: Eval and Treat Problem/Diagnosis (1) Urinary retention: Status: Acute Code(s): R33.9 - Retention of urine, unspecified (2) Urinary tract infection: Status: Acute Code(s): N39.0 - Urinary tract infection, site not specified (3) Stroke: Status: Acute Code(s): I63.9 - Cerebral infarction, unspecified Plan 85 year old female with below past medical history hospitalized left distal femur fracture, underwent orif 05/09/[address] Livingston, postoperative course complicated by acute blood loss anemia requiring transfusion, stroke, urinary retention, admitted to TCU with debility, here for rehabilitation, strengthening, prior to discharge home alone. * Debility - PT/OT. * Pain - Tylenol 1000mg q8, Oxycodone 2.5mg - 5mg q4 prn pain. * Bowel - senna/colace 2 tablets bid, Magnesium citrate 300mL daily prn. * Adult immunization - Administer pneumonia vaccine, covid vaccine, flu vaccine as appropriate. * DVT prophylaxis - Eliquis. * Recurrent DVT - Eliquis 5mg bid. * Hyperlipidemia - Atorvastatin 40mg qhs. * Glaucoma - Brimonidine 2gtt ou bid, Dorzolamide/Timolol 1gtt ou bid, Latanoprost 1gtt ou qpm. * Coronary artery disease - Coreg 12.5mg bid, Losartan 25mg daily, Plavix 75mg daily, Eliquis 5mg bid. * Stroke - Plavix 75mg daily, Eliquis 5mg bid, 30 day event monitor. * GERD - Pantoprazole 40mg daily. * Urinary retention - Tamsulosin 0.4mg daily, indwelling rdz catheter, voiding trials. The following psychotropic medication was present on admission: Temazepam 30mg qhs. Psychotropic medication therapy is indicated for a diagnosis of: Insomnia. Based on my clinical evaluation, continuation of the medication is necessary at this time. Gradual dose reduction plan (select one): ____ GDR will be attempted. Will monitor patient symptoms and behaviors in response to GDR. __x__ GRD contraindicated. Reason contraindicated: Allergies/Procedures Done in Hospital Allergies No Known Allergies Allergy (Verified 03/16/24 14:09) Procedures: None Type of Care/Length of Stay Estimated LOS: Convalescent Care Less Than 30 days Type of Care Needed: Intermediate Rehab Potential: Fair Prognosis: Fair Additional Orders/Day of Discharge Day of Discharge: 06/07/25 Dietary and Speech Recommendations Dietitian Recommendations/Changes: Continue cardiac diet. Continue EPHP 8 oz with meals per res request. Will monitor weight trends. Follow Up Care Please Follow Up With: Dr. Livingston When: 2 weeks Please Follow Up With: Dr. Melendez When: 1 month Discharge Plan Admission Admit Date/Time: 05/14/25 14:44 Primary Reason for Your Visit: Debility. Attending Provider: Eh Huddleston Chi Primary Care Provider: Eh Huddleston Chi Consulting Providers: Katelyn Kuhn Instructions Additional Instructions / Restrictions: Discharge 06/07/2025 to [facility], intermediate, part B therapies. Discharge Orders/Prescriptions Prescriptions: New polysaccharide iron complex [Ferrex 150] 150 mg iron Capsule 150 mg PO DAILY Qty: 0 0RF sennosides-docusate sodium [Stimulant Laxative Plus] 8.6-50 mg Tablet 1 tab PO BID Qty: 0 0RF acetaminophen 500 mg Tablet 1,000 mg PO Q6H PRN PRN (Reason: Pain Score 1-10) Qty: 0 0RF ascorbic acid (vitamin C) 500 mg Tablet 500 mg PO 1000 Qty: 0 0RF tamsulosin 0.4 mg Capsule 0.4 mg PO BID@0830,1730 Qty: 0 0RF menthol-zinc oxide [Calmoseptine] 0.44-20.6 % Ointment 1 applic topical BID Qty: 0 0RF Protocol: *Topical Application Instructions APPLICATION INSTRUCTIONS: bilat buttocks vancomycin [Firvanq] 25 mg/mL Recon Soln 125 mg PO Q6 7 Days Qty: 0 0RF Continued latanoprost 0.005 % drops 1 drp OPHTHALMIC QPM brimonidine 1 DROP bottle 2 drp EACH EYE BID dorzolamide-timolol 10 ML drops 1 drp EACH EYE BID Patient Comments: clopidogrel 75 mg tablet 75 mg PO DAILY Eliquis 5 mg tablet 5 mg PO BID temazepam 30 mg capsule 30 mg PO DAILY atorvastatin 40 mg Tablet 40 mg PO QHS Qty: 0 0RF pantoprazole 40 mg Tablet,Delayed Release (Dr/Ec) 40 mg PO DAILY Qty: 0 0RF losartan 25 mg Tablet 25 mg PO DAILY Qty: 0 0RF Rx Instructions: Hold for SBP less than 120 mmHg carvedilol 12.5 mg tablet 12.5 mg PO BID Qty: 180 4RF Discontinued sennosides-docusate sodium [Stimulant Laxative Plus] 8.6-50 mg Tablet 2 tab PO BID Qty: 0 0RF acetaminophen [Acetaminophen Pain Relief] 500 mg tablet 1,000 mg PO Q8H 30 Days Qty: 180 0RF Rx Instructions: 1 g, 3 times daily for 1 week and then 1 g Q8 hourly as needed for moderate to severe pain oxycodone 5 mg Tablet 2.5 - 5 mg PO Q4H PRN PRN (Reason: Pain Score 4-10) Rx Instructions: Oxycodone 2.5 mg for moderate pain (1-3) and 5 mg for severe pain respectively (4-10). Referrals / Follow Up: Eh Huddleston Chi, MD [Primary Care Provider] - Disposition Disposition (needs filled in before D/C Order can be placed): NonSkilled NH/Intermed Care 06/04/25 1967 <Electronically signed by Eh Huddleston MD> Cosigner Signature (if applicable): CC: Dr. Katelyn Kuhn MD; Dr. Eh Huddleston MD ~ [facility] Work Phone: 1(945) 599-300708-08-2025 Discharge summary Author Eh Flaquito [facility] Note Date/Time June 04, 2025 2:5 6pm [facility] Medical Records Department [address] [place] [address] Discharge Summary 06/04/25 1448 MR#: [id number] Acct: [id number] Name: GOGO WARE p #:[id number] : 1940 85 From: Eh Huddleston MD PCP: Dr. Eh Huddleston MD Status:ADM I N Location: [place] [address] Providers Date of Admission: 05/14/25 Primary Care Physician: Dr. Eh Huddleston MD Consultations 06/02/25 17:19 Consult: Urology Routine Consulting Provider: Katelyn Kuhn Reason for Consult: Retention, Flomax 0.4mg bid, failed voiding trials x 3. EMERGENT Consult: No MD Notified: Yes Date Notified: 06/03/25 Time Notified: 08:00 Method of Notification: Text Comments:: already completed Reason For Visit: SISTAL L FEMER Diagnosis Discharge Diagnosis (1) Urinary retention: Status: Acute Code(s): R33.9 - Retention of urine, unspecified (2) Urinary tract infection: Status: Acute Code(s): N39.0 - Urinary tract infection, site not specified (3) Stroke: Status: Acute Code(s): I63.9 - Cerebral infarction, unspecified Plan 85 year old female with below past medical history hospitalized left distal femur fracture, underwent orif 05/09/[address] Livingston, postoperative course complicated by acute blood loss anemia requiring transfusion, stroke, urinary retention, admitted to TCU with debility, here for rehabilitation, strengthening, prior to discharge home alone. * Debility - PT/OT. * Pain - Tylenol 1000mg q8, Oxycodone 2.5mg - 5mg q4 prn pain. * Bowel - senna/colace 2 tablets bid, Magnesium citrate 300mL daily prn. * Adult immunization - Administer pneumonia vaccine, covid vaccine, flu vaccine as appropriate. * DVT prophylaxis - Eliquis. * Recurrent DVT - Eliquis 5mg bid. * Hyperlipidemia - Atorvastatin 40mg qhs. * Glaucoma - Brimonidine 2gtt ou bid, Dorzolamide/Timolol 1gtt ou bid, Latanoprost 1gtt ou qpm. * Coronary artery disease - Coreg 12.5mg bid, Losartan 25mg daily, Plavix 75mg daily, Eliquis 5mg bid. * Stroke - Plavix 75mg daily, Eliquis 5mg bid, 30 day event monitor. * GERD - Pantoprazole 40mg daily. * Urinary retention - Tamsulosin 0.4mg daily, indwelling rdz catheter, voiding trials. The following psychotropic medication was present on admission: Temazepam 30mg qhs. Psychotropic medication therapy is indicated for a diagnosis of: Insomnia. Based on my clinical evaluation, continuation of the medication is necessary at this time. Gradual dose reduction plan (select one): ____ GDR will be attempted. Will monitor patient symptoms and behaviors in response to GDR. __x__ GRD contraindicated. Reason contraindicated: Medications at Discharge Home Medications brimonidine 0.2 % eye drops 2 drp EACH EYE BID glaucoma 11/25/17 dorzolamide 22.3 mg-timolol 6.8 mg/mL eye drops 1 drp EACH EYE BID glaucoma 11/25/17 latanoprost 0.005 % eye drops 1 drp ophthalmic (eye) QPM glaucoma 12/17/19 carvedilol 12.5 mg tablet 12.5 mg PO BID BP/pulse #180 tabs 11/03/24 apixaban 5 mg tablet (Eliquis) 5 mg PO BID blood thinner 05/07/25 clopidogrel 75 mg tablet 75 mg PO DAILY antiplatelet 05/07/25 temazepam 30 mg capsule 30 mg PO DAILY sleep 05/07/25 atorvastatin 40 mg tablet 40 mg PO QHS cholesterol #0 tabs 05/14/25 losartan 25 mg tablet 25 mg PO DAILY BP #0 tabs 05/14/25 pantoprazole 40 mg tablet,delayed release 40 mg PO DAILY reflux #0 tabs 05/14/25 acetaminophen 500 mg tablet 1,000 mg (2 x 500 mg) PO Q6H PRN PRN Pain Score 1- 10#0 tabs 06/04/25 ascorbic acid (vitamin C) 500 mg tablet 500 mg PO 1000 #0 tabs 06/04/25 menthol 0.44 %-zinc oxide 20.6 % topical ointment (Calmoseptine) 1 applic topical BID #0 grams 06/04/25 polysaccharide iron complex 150 mg iron capsule (Ferrex) 150 mg PO DAILY #0 caps06/04/25 sennosides 8.6 mg-docusate sodium 50 mg tablet (Stimulant Laxative Plus) 1 tab PO BID #0 tabs 06/04/25 tamsulosin 0.4 mg capsule 0.4 mg PO BID@0830,1730 #0 caps 06/04/25 vancomycin 25 mg/mL oral solution (Firvanq) 125 mg (5 mL) PO Q6 7 days #0 mL 06/04/25 Hospital Course Operations - (See below.) Procedures None Summary of Care Provided Minutes Spent on Discharge: 35 Hospital Course: 85 year old female with below past medical history hospitalized left distal femur fracture, underwent orif 05/09/[address] Livingston, postoperative course complicated by acute blood loss anemia requiring transfusion, stroke, urinary retention, admitted to TCU with debility, here for rehabilitation, strengthening, prior to discharge home alone. 05/25/2025 UTI (E. Coli/Klebsiella Pneumoniae/P. Aeruginosa), treated with Cipro 250mg po bid x 7 days. 06/04/2025 C. Diff diarrhea - Vancomycin 125mg po q6 x 10 days. Discharge 06/07/2025 to [facility], intermediate, part B therapies. Physical Exam Const alert General Appearance: cooperative HEENT normocephalic Eyes PERRL and EOMs intact bilaterally Neck supple, no JVD and no carotid bruits Resp normal respiratory effort, normal air movement and clear to auscultation bilaterally Cardio regular rate and regular rhythm GI normal to inspection, nondistended, normoactive bowel sounds, non-tender and non-distended Bladder / Kidney Exam: catheter in place urethral Extremity normal capillary refill General Extremity: Negative for edema Skin no rashes or lesions noted General Skin Exam: no breakdown Psych affect normal Appearance: appropriate Weight / BMI Weight Weight: 81.692 kg Body Mass Index (BMI) 29.9 ABG / Lab / Microbiology Data 06/04/25 05:32 06/04/25 05:32 Laboratory: Laboratory Results - last 24 hr 06/04/25 05:32: WBC 6.4, RBC 3.06 L, Hgb 9.3 L, Hct 29.4 L, MCV 96.1, MCH 30.4, MCHC 31.6 L, RDW Std Deviation 54.1 H, RDW Coeff of Alex 15.4 H, Plt Count 214, MPV 9.9, Immature Gran % (Auto) 0.300, Neut % (Auto) 62.9, Lymph % (Auto) 19.7, Stanly % (Auto) 11.2 H, Eos % (Auto) 5.1 H, Baso % (Auto) 0.8, Absolute Neuts (auto) 4.0, Absolute Lymphs (auto) 1.26, Nucleated RBC % 0, Sodium 137, Potassium 3.5, Chloride 102, Carbon Dioxide 24.6, Anion Gap 11, BUN 23 H, Creatinine 0.68 L, Estim Creat Clear Calc 53.29, Est GFR (MDRD) Non-Af 85, BUN/Creatinine Ratio 33.2 H, Glucose 104 H, Calcium 9.1 Microbiology: Microbiology 06/04/25 08:54 Stool Enteric Bacteriology - Final 06/04/25 08:54 Stool C. difficile GDH Antigen & Toxins - Final 06/04/25 08:54 Stool Clostridioides difficile (PCR) - Final 05/25/25 18:35 Urine Catheter - Rdz Urine Culture - Final Escherichia coli Klebsiella pneumoniae sp pneum Pseudomonas aeruginosa 05/18/25 09:25 Stool Stool Occult Blood (DESEAN) - Final 05/15/25 17:33 Stool Stool Occult Blood (DESEAN) - Final Radiography Diagnostic Testing: Radiology Impression Abdomen X-Ray 06/04/25 11:10 IMPRESSION: No acute abnormality Reading Location: [facility] D/ Instructions Discharge Activity: Return to Normal Activity, May Shower and Use Walker Weight Bearing Status: Weight bearing as tolerated Call your doctor if you observe: Fever of 101 or Higher, Inability to urinate, Inability to have a bowel movement, Shortness of breath, Dizziness, Fainting spells, Swelling in the ankles, Chest pain and Uncontrolled pain DC O2, CPAP, BIPAP Needs Home O2 Discharge instructions: No Additional Instructions: Discharge 06/07/2025 to [facility], intermediate, part B therapies. Please Follow Up With: Dr. Livingston When: As scheduled. Meaningful Use Info Meaningful Use Meaningful Use Diagnoses (Choose all that apply): None applicable Discharge Plan Admission Admit Date/Time: 05/14/25 14:44 Primary Reason for Your Visit: Debility. Attending Provider: Eh Huddleston Chi Primary Care Provider: Eh Huddleston Chi Consulting Providers: Katelyn Kuhn Instructions Additional Instructions / Restrictions: Discharge 06/07/2025 to [facility], intermediate, part B therapies. Discharge Orders/Prescriptions Prescriptions: New polysaccharide iron complex [Ferrex 150] 150 mg iron Capsule 150 mg PO DAILY Qty: 0 0RF sennosides-docusate sodium [Stimulant Laxative Plus] 8.6-50 mg Tablet 1 tab PO BID Qty: 0 0RF acetaminophen 500 mg Tablet 1,000 mg PO Q6H PRN PRN (Reason: Pain Score 1-10) Qty: 0 0RF ascorbic acid (vitamin C) 500 mg Tablet 500 mg PO 1000 Qty: 0 0RF tamsulosin 0.4 mg Capsule 0.4 mg PO BID@0830,1730 Qty: 0 0RF menthol-zinc oxide [Calmoseptine] 0.44-20.6 % Ointment 1 applic topical BID Qty: 0 0RF Protocol: *Topical Application Instructions APPLICATION INSTRUCTIONS: bilat buttocks vancomycin [Firvanq] 25 mg/mL Recon Soln 125 mg PO Q6 7 Days Qty: 0 0RF Continued latanoprost 0.005 % drops 1 drp OPHTHALMIC QPM brimonidine 1 DROP bottle 2 drp EACH EYE BID dorzolamide-timolol 10 ML drops 1 drp EACH EYE BID Patient Comments: clopidogrel 75 mg tablet 75 mg PO DAILY Eliquis 5 mg tablet 5 mg PO BID temazepam 30 mg capsule 30 mg PO DAILY atorvastatin 40 mg Tablet 40 mg PO QHS Qty: 0 0RF pantoprazole 40 mg Tablet,Delayed Release (Dr/Ec) 40 mg PO DAILY Qty: 0 0RF losartan 25 mg Tablet 25 mg PO DAILY Qty: 0 0RF Rx Instructions: Hold for SBP less than 120 mmHg carvedilol 12.5 mg tablet 12.5 mg PO BID Qty: 180 4RF Discontinued sennosides-docusate sodium [Stimulant Laxative Plus] 8.6-50 mg Tablet 2 tab PO BID Qty: 0 0RF acetaminophen [Acetaminophen Pain Relief] 500 mg tablet 1,000 mg PO Q8H 30 Days Qty: 180 0RF Rx Instructions: 1 g, 3 times daily for 1 week and then 1 g Q8 hourly as needed for moderate to severe pain oxycodone 5 mg Tablet 2.5 - 5 mg PO Q4H PRN PRN (Reason: Pain Score 4-10) Rx Instructions: Oxycodone 2.5 mg for moderate pain (1-3) and 5 mg for severe pain respectively (4-10). Referrals / Follow Up: Eh Huddleston Chi, MD [Primary Care Provider] - Disposition Disposition (needs filled in before D/C Order can be placed): NonSkilled NH/Intermed Care 06/04/25 0901 <Electronically signed by Eh Huddleston MD> Cosigner Signature (if applicable): CC: Dr. Eh Huddleston MD~ Signed [facility] Work Phone: 1(833) 598-925908-08-2025 Discharge summary [facility] Medical Records Department [address] [place] [address] Transfer to [facility] MR#: [id number] Acct: [id number] Name: GOGO WARE p #:[id number] : 1940 85 From: Eh Huddleston MD PCP: Dr. Eh Huddleston MD Status:ADM I N Certification of patient admission REQUIRED AT TIME OF ADMISSION. I CERTIFY THAT POST-HOSPITAL ECF SERVICES ARE REQUIRED TO BE GIVEN ON AN IN-PATIENT BASIS BECAUSE OF THE ABOVE NAMED PATIENT'S NEED FOR FPC CARE ON A CONTINUING BASIS FOR THE CONDITION(S) FOR WHICH HE/SHE WAS RECEIVING IN-PATIENT HOSPITAL SERVICES PRIOR TO HIS/HER TRANSFER TO THE ECF. 06/04/25 1457 Diet Diet Order/Speech Therapy: INPATIENT Hospital Diet / Speech Therapy Order(s) 05/14/25 15:25 Diet: Cardiac - Heart Healthy Food consistency:: Regular Liquid Consistency:: Regular/Thin Type of Dietary Supplement:: Ensure Plus High Protein Diet Comments: 240ml EPHP tid; does not like white bread Routine Orders/Code Status Code Status: Full Code DC O2, CPAP, BIPAP needs Home O2 Discharge instructions: No Wound(s) right upper arm: Wound Type: Abrasion right outer knee: Wound Type: Abrasion hip: Wound Type: Surgical Incision Dressing Change: ABDs bilat buttocks: Wound Type: shear injury Dressing Change: mepilex- 06/01/25 cleft: Wound Type: MASB Dressing Change: mepilex- 06/01/25 Therapies Weight Bearing: Weight bearing as tolerated Extremity Affected:: Bilateral Lower Physical Therapy: Eval and Treat Occupational Therapy: Eval and Treat Problem/Diagnosis (1) Urinary retention: Status: Acute Code(s): R33.9 - Retention of urine, unspecified (2) Urinary tract infection: Status: Acute Code(s): N39.0 - Urinary tract infection, site not specified (3) Stroke: Status: Acute Code(s): I63.9 - Cerebral infarction, unspecified Plan 85 year old female with below past medical history hospitalized left distal femur fracture, underwent orif 05/09/[address] Livingston, postoperative course complicated by acute blood loss anemia requiring transfusion, stroke, urinary retention, admitted to TCU with debility, here for rehabilitation, strengthening, prior to discharge home alone. * Debility - PT/OT. * Pain - Tylenol 1000mg q8, Oxycodone 2.5mg - 5mg q4 prn pain. * Bowel - senna/colace 2 tablets bid, Magnesium citrate 300mL daily prn. * Adult immunization - Administer pneumonia vaccine, covid vaccine, flu vaccine as appropriate. * DVT prophylaxis - Eliquis. * Recurrent DVT - Eliquis 5mg bid. * Hyperlipidemia - Atorvastatin 40mg qhs. * Glaucoma - Brimonidine 2gtt ou bid, Dorzolamide/Timolol 1gtt ou bid, Latanoprost 1gtt ou qpm. * Coronary artery disease - Coreg 12.5mg bid, Losartan 25mg daily, Plavix 75mg daily, Eliquis 5mg bid. * Stroke - Plavix 75mg daily, Eliquis 5mg bid, 30 day event monitor. * GERD - Pantoprazole 40mg daily. * Urinary retention - Tamsulosin 0.4mg daily, indwelling rdz catheter, voiding trials. The following psychotropic medication was present on admission: Temazepam 30mg qhs. Psychotropic medication therapy is indicated for a diagnosis of: Insomnia. Based on my clinical evaluation, continuation of the medication is necessary at this time. Gradual dose reduction plan (select one): ____ GDR will be attempted. Will monitor patient symptoms and behaviors in response to GDR. __x__ GRD contraindicated. Reason contraindicated: Allergies/Procedures Done in Hospital Allergies No Known Allergies Allergy (Verified 03/16/24 14:09) Procedures: None Type of Care/Length of Stay Estimated LOS: Convalescent Care Less Than 30 days Type of Care Needed: Intermediate Rehab Potential: Fair Prognosis: Fair Additional Orders/Day of Discharge Day of Discharge: 06/07/25 Dietary and Speech Recommendations Dietitian Recommendations/Changes: Continue cardiac diet. Continue EPHP 8 oz with meals per res request. Will monitor weight trends. Follow Up Care Please Follow Up With: Dr. Livingston When: 2 weeks Please Follow Up With: Dr. Melendez When: 1 month Discharge Plan Admission Admit Date/Time: 05/14/25 14:44 Primary Reason for Your Visit: Debility. Attending Provider: Eh Huddleston Chi Primary Care Provider: Eh Huddleston Chi Consulting Providers: Katelyn Kuhn Instructions Additional Instructions / Restrictions: Discharge 06/07/2025 to [facility], intermediate, part B therapies. Discharge Orders/Prescriptions Prescriptions: New polysaccharide iron complex [Ferrex 150] 150 mg iron Capsule 150 mg PO DAILY Qty: 0 0RF sennosides-docusate sodium [Stimulant Laxative Plus] 8.6-50 mg Tablet 1 tab PO BID Qty: 0 0RF acetaminophen 500 mg Tablet 1,000 mg PO Q6H PRN PRN (Reason: Pain Score 1-10) Qty: 0 0RF ascorbic acid (vitamin C) 500 mg Tablet 500 mg PO 1000 Qty: 0 0RF tamsulosin 0.4 mg Capsule 0.4 mg PO BID@0830,1730 Qty: 0 0RF menthol-zinc oxide [Calmoseptine] 0.44-20.6 % Ointment 1 applic topical BID Qty: 0 0RF Protocol: *Topical Application Instructions APPLICATION INSTRUCTIONS: bilat buttocks vancomycin [Firvanq] 25 mg/mL Recon Soln 125 mg PO Q6 7 Days Qty: 0 0RF Continued latanoprost 0.005 % drops 1 drp OPHTHALMIC QPM brimonidine 1 DROP bottle 2 drp EACH EYE BID dorzolamide-timolol 10 ML drops 1 drp EACH EYE BID Patient Comments: clopidogrel 75 mg tablet 75 mg PO DAILY Eliquis 5 mg tablet 5 mg PO BID temazepam 30 mg capsule 30 mg PO DAILY atorvastatin 40 mg Tablet 40 mg PO QHS Qty: 0 0RF pantoprazole 40 mg Tablet,Delayed Release (Dr/Ec) 40 mg PO DAILY Qty: 0 0RF losartan 25 mg Tablet 25 mg PO DAILY Qty: 0 0RF Rx Instructions: Hold for SBP less than 120 mmHg carvedilol 12.5 mg tablet 12.5 mg PO BID Qty: 180 4RF Discontinued sennosides-docusate sodium [Stimulant Laxative Plus] 8.6-50 mg Tablet 2 tab PO BID Qty: 0 0RF acetaminophen [Acetaminophen Pain Relief] 500 mg tablet 1,000 mg PO Q8H 30 Days Qty: 180 0RF Rx Instructions: 1 g, 3 times daily for 1 week and then 1 g Q8 hourly as needed for moderate to severe pain oxycodone 5 mg Tablet 2.5 - 5 mg PO Q4H PRN PRN (Reason: Pain Score 4-10) Rx Instructions: Oxycodone 2.5 mg for moderate pain (1-3) and 5 mg for severe pain respectively (4-10). Referrals / Follow Up: Eh Huddleston Chi, MD [Primary Care Provider] - Disposition Disposition (needs filled in before D/C Order can be placed): NonSkilled NH/Intermed Care 06/04/25 1457 Cosigner Signature (if applicable): CC: Dr. Katelyn Kuhn MD; Dr. Eh Huddleston MD ~ [facility]08-08-2025 Discharge summary [facility] Medical Records Department [address] [place] [address] Discharge Summary 06/04/25 1448 MR#: [id number] Acct: [id number] Name: GOGO WARE p #:[id number] : 1940 85 From: Eh Huddleston MD PCP: Dr. Eh Huddleston MD Status:ADM I N Location: [place] [address] Providers Date of Admission: 05/14/25 Primary Care Physician: Dr. Eh Huddleston MD Consultations 06/02/25 17:19 Consult: Urology Routine Consulting Provider: Katelyn Kuhn Reason for Consult: Retention, Flomax 0.4mg bid, failed voiding trials x 3. EMERGENT Consult: No MD Notified: Yes Date Notified: 06/03/25 Time Notified: 08:00 Method of Notification: Text Comments:: already completed Reason For Visit: SISTAL L FEMER Diagnosis Discharge Diagnosis (1) Urinary retention: Status: Acute Code(s): R33.9 - Retention of urine, unspecified (2) Urinary tract infection: Status: Acute Code(s): N39.0 - Urinary tract infection, site not specified (3) Stroke: Status: Acute Code(s): I63.9 - Cerebral infarction, unspecified Plan 85 year old female with below past medical history hospitalized left distal femur fracture, underwent orif 05/09/[address] [place], postoperative course complicated by acute blood loss anemia requiring transfusion, stroke, urinary retention, admitted to TCU with debility, here for rehabilitation, strengthening, prior to discharge home alone. * Debility - PT/OT. * Pain - Tylenol 1000mg q8, Oxycodone 2.5mg - 5mg q4 prn pain. * Bowel - senna/colace 2 tablets bid, Magnesium citrate 300mL daily prn. * Adult immunization - Administer pneumonia vaccine, covid vaccine, flu vaccine as appropriate. * DVT prophylaxis - Eliquis. * Recurrent DVT - Eliquis 5mg bid. * Hyperlipidemia - Atorvastatin 40mg qhs. * Glaucoma - Brimonidine 2gtt ou bid, Dorzolamide/Timolol 1gtt ou bid, Latanoprost 1gtt ou qpm. * Coronary artery disease - Coreg 12.5mg bid, Losartan 25mg daily, Plavix 75mg daily, Eliquis 5mg bid. * Stroke - Plavix 75mg daily, Eliquis 5mg bid, 30 day event monitor. * GERD - Pantoprazole 40mg daily. * Urinary retention - Tamsulosin 0.4mg daily, indwelling rdz catheter, voiding trials. The following psychotropic medication was present on admission: Temazepam 30mg qhs. Psychotropic medication therapy is indicated for a diagnosis of: Insomnia. Based on my clinical evaluation, continuation of the medication is necessary at this time. Gradual dose reduction plan (select one): ____ GDR will be attempted. Will monitor patient symptoms and behaviors in response to GDR. __x__ GRD contraindicated. Reason contraindicated: Medications at Discharge Home Medications brimonidine 0.2 % eye drops 2 drp EACH EYE BID glaucoma 11/25/17 dorzolamide 22.3 mg-timolol 6.8 mg/mL eye drops 1 drp EACH EYE BID glaucoma 11/25/17 latanoprost 0.005 % eye drops 1 drp ophthalmic (eye) QPM glaucoma 12/17/19 carvedilol 12.5 mg tablet 12.5 mg PO BID BP/pulse #180 tabs 11/03/24 apixaban 5 mg tablet (Eliquis) 5 mg PO BID blood thinner 05/07/25 clopidogrel 75 mg tablet 75 mg PO DAILY antiplatelet 05/07/25 temazepam 30 mg capsule 30 mg PO DAILY sleep 05/07/25 atorvastatin 40 mg tablet 40 mg PO QHS cholesterol #0 tabs 05/14/25 losartan 25 mg tablet 25 mg PO DAILY BP #0 tabs 05/14/25 pantoprazole 40 mg tablet,delayed release 40 mg PO DAILY reflux #0 tabs 05/14/25 acetaminophen 500 mg tablet 1,000 mg (2 x 500 mg) PO Q6H PRN PRN Pain Score 1- 10#0 tabs 06/04/25 ascorbic acid (vitamin C) 500 mg tablet 500 mg PO 1000 #0 tabs 06/04/25 menthol 0.44 %-zinc oxide 20.6 % topical ointment (Calmoseptine) 1 applic topical BID #0 grams 06/04/25 polysaccharide iron complex 150 mg iron capsule (Ferrex) 150 mg PO DAILY #0 caps06/04/25 sennosides 8.6 mg-docusate sodium 50 mg tablet (Stimulant Laxative Plus) 1 tab PO BID #0 tabs 06/04/25 tamsulosin 0.4 mg capsule 0.4 mg PO BID@0830,1730 #0 caps 06/04/25 vancomycin 25 mg/mL oral solution (Firvanq) 125 mg (5 mL) PO Q6 7 days #0 mL 06/04/25 Hospital Course Operations - (See below.) Procedures None Summary of Care Provided Minutes Spent on Discharge: 35 Hospital Course: 85 year old female with below past medical history hospitalized left distal femur fracture, underwent orif 05/09/[address] Livingston, postoperative course complicated by acute blood loss anemia requiring transfusion, stroke, urinary retention, admitted to TCU with debility, here for rehabilitation, strengthening, prior to discharge home alone. 05/25/2025 UTI (E. Coli/Klebsiella Pneumoniae/P. Aeruginosa), treated with Cipro 250mg po bid x 7 days. 06/04/2025 C. Diff diarrhea - Vancomycin 125mg po q6 x 10 days. Discharge 06/07/2025 to [facility], intermediate, part B therapies. Physical Exam Const alert General Appearance: cooperative HEENT normocephalic Eyes PERRL and EOMs intact bilaterally Neck supple, no JVD and no carotid bruits Resp normal respiratory effort, normal air movement and clear to auscultation bilaterally Cardio regular rate and regular rhythm GI normal to inspection, nondistended, normoactive bowel sounds, non-tender and non-distended Bladder / Kidney Exam: catheter in place urethral Extremity normal capillary refill General Extremity: Negative for edema Skin no rashes or lesions noted General Skin Exam: no breakdown Psych affect normal Appearance: appropriate Weight / BMI Weight Weight: 81.692 kg Body Mass Index (BMI) 29.9 ABG / Lab / Microbiology Data 06/04/25 05:32 06/04/25 05:32 Laboratory: Laboratory Results - last 24 hr 06/04/25 05:32: WBC 6.4, RBC 3.06 L, Hgb 9.3 L, Hct 29.4 L, MCV 96.1, MCH 30.4, MCHC 31.6 L, RDW Std Deviation 54.1 H, RDW Coeff of Alex 15.4 H, Plt Count 214, MPV 9.9, Immature Gran % (Auto) 0.300, Neut % (Auto) 62.9, Lymph % (Auto) 19.7, Stanly % (Auto) 11.2 H, Eos % (Auto) 5.1 H, Baso % (Auto) 0.8,Absolute Neuts (auto) 4.0, Absolute Lymphs (auto) 1.26, Nucleated RBC % 0, Sodium 137, Potassium 3.5, Chloride 102, Carbon Dioxide 24.6, Anion Gap 11, BUN 23 H, Creatinine 0.68 L, Estim Creat Clear Calc 53.29, Est GFR (MDRD) Non-Af 85, BUN/Creatinine Ratio 33.2 H, Glucose 104 H, Calcium 9.1 Microbiology: Microbiology 06/04/25 08:54 Stool Enteric Bacteriology - Final 06/04/25 08:54 Stool C. difficile GDH Antigen & Toxins - Final 06/04/25 08:54 Stool Clostridioides difficile (PCR) - Final 05/25/25 18:35 Urine Catheter - Rdz Urine Culture - Final Escherichia coli Klebsiella pneumoniae sp pneum Pseudomonas aeruginosa 05/18/25 09:25 Stool Stool Occult Blood (DESEAN) - Final 05/15/25 17:33 Stool Stool Occult Blood (DESEAN) - Final Radiography Diagnostic Testing: Radiology Impression Abdomen X-Ray 06/04/25 11:10 IMPRESSION: No acute abnormality Reading Location: [id number] D/C Instructions Discharge Activity: Return to Normal Activity, May Shower and Use Walker Weight Bearing Status: Weight bearing as tolerated Call your doctor if you observe: Fever of 101 or Higher, Inability to urinate, Inability to have a bowel movement, Shortness of breath, Dizziness, Fainting spells, Swelling in the ankles, Chest pain and Uncontrolled pain DC O2, CPAP, BIPAP Needs Home O2 Discharge instructions: No Additional Instructions: Discharge 06/07/2025 to [facility], intermediate, part B therapies. Please Follow Up With: Dr. Livingston When: As scheduled. Meaningful Use Info Meaningful Use Meaningful Use Diagnoses (Choose all that apply): None applicable Discharge Plan Admission Admit Date/Time: 05/14/25 14:44 Primary Reason for Your Visit: Debility. Attending Provider: Eh Huddleston Chi Primary Care Provider: Eh Huddleston Chi Consulting Providers: Katelyn Kuhn Instructions Additional Instructions / Restrictions: Discharge 06/07/2025 to [facility], intermediate, part B therapies. Discharge Orders/Prescriptions Prescriptions: New polysaccharide iron complex [Ferrex 150] 150 mg iron Capsule 150 mg PO DAILY Qty: 0 0RF sennosides-docusate sodium [Stimulant Laxative Plus] 8.6-50 mg Tablet 1 tab PO BID Qty: 0 0RF acetaminophen 500 mg Tablet 1,000 mg PO Q6H PRN PRN (Reason: Pain Score 1-10) Qty: 0 0RF ascorbic acid (vitamin C) 500 mg Tablet 500 mg PO 1000 Qty: 0 0RF tamsulosin 0.4 mg Capsule 0.4 mg PO BID@0830,1730 Qty: 0 0RF menthol-zinc oxide [Calmoseptine] 0.44-20.6 % Ointment 1 applic topical BID Qty: 0 0RF Protocol: *Topical Application Instructions APPLICATION INSTRUCTIONS: bilat buttocks vancomycin [Firvanq] 25 mg/mL Recon Soln 125 mg PO Q6 7 Days Qty: 0 0RF Continued latanoprost 0.005 % drops 1 drp OPHTHALMIC QPM brimonidine 1 DROP bottle 2 drp EACH EYE BID dorzolamide-timolol 10 ML drops 1 drp EACH EYE BID Patient Comments: clopidogrel 75 mg tablet 75 mg PO DAILY Eliquis 5 mg tablet 5 mg PO BID temazepam 30 mg capsule 30 mg PO DAILY atorvastatin 40 mg Tablet 40 mg PO QHS Qty: 0 0RF pantoprazole 40 mg Tablet,Delayed Release (Dr/Ec) 40 mg PO DAILY Qty: 0 0RF losartan 25 mg Tablet 25 mg PO DAILY Qty: 0 0RF Rx Instructions: Hold for SBP less than 120 mmHg carvedilol 12.5 mg tablet 12.5 mg PO BID Qty: 180 4RF Discontinued sennosides-docusate sodium [Stimulant Laxative Plus] 8.6-50 mg Tablet 2 tab PO BID Qty: 0 0RF acetaminophen [Acetaminophen Pain Relief] 500 mg tablet 1,000 mg PO Q8H 30 Days Qty: 180 0RF Rx Instructions: 1 g, 3 times daily for 1 week and then 1 g Q8 hourly as needed for moderate to severe pain oxycodone 5 mg Tablet 2.5 - 5 mg PO Q4H PRN PRN (Reason: Pain Score 4-10) Rx Instructions: Oxycodone 2.5 mg for moderate pain (1-3) and 5 mg for severe pain respectively (4-10). Referrals / Follow Up: Eh Huddleston Chi, MD [Primary Care Provider] - Disposition Disposition (needs filled in before D/C Order can be placed): NonSkilled NH/Intermed Care 06/04/25 1456 Cosigner Signature (if applicable): CC: Dr. Eh Huddleston MD~ Signed [facility]08-08-2025 [facility] Radiology Diagnostic study note [facility] Imaging Services [address] [place] [address] Abd Inc Decub and/or Erect MR#: [id number] Acct: [id number] Name: GOGO WARE Rep #: [id number] : 1940 F 85 From: Tim Rogers MD PCP: Dr. Eh Huddleston MD Status: ADM I N Study:Abd Inc Decub and/or Erect Date of Exam : 06/04/25 Exam# [id number] Ordering Dr: Eh Huddleston MD PROCEDURE: ABD INC DECUB AND/OR ERECT 06/04/2025 REASON FOR EXAM: STOOL INCONTINENCE. TECHNIQUE: ABD INC DECUB AND/OR ERECT COMPARISON: None FINDINGS: Bowel gas: Bowel gas pattern is normal. No evidence of bowel obstruction. Calcifications: Pelvic phleboliths. There are 2 calcifications overlying the right mid abdomen thatare possibly within the bowel. Bones: There are degenerative changes of the spine. Bilateral hip replacements. Buttress plate and screws left laterally on the left partially imaged. Other: Atherosclerosis RAD/Abd Inc Decub and/or Erect IMPRESSION: No acute abnormality Reading Location: [id number] CC: Dr. Eh Huddleston MD ~ General Studies Program Chair: Signed [facility]08-07-2025 Consult note Author Katelyn Kuhn [facility] Note Date/Time June 03, 2025 3:0 1pm [facility] Medical Records Department [address] [place] [address] Consultation 06/03/25 0754 MR#: [id number] Acct: [id number] Name: GOGO WARE p #:[id number] : 1940 85 From: Katelyn Millard PCP: Dr. Eh Huddleston MD Status:ADM I N Location: [facility] [id number] Assessment & Plan Assessment/Plan (1) Urinary retention: (2) Urinary tract infection: (3) Stroke: PLAN: Plan Aggressive management of any constipation Continue working with mobility Okay to continue with Rdz catheter in the acute situation or begin intermittent straight cath She will need further management and evaluation in the office as she progresses with possible urodynamics and cystoscopy From my standpoint, she can be discharged with Rdz catheter in place or she can be given another trial of void and started on intermittent cathing [address] she can follow-up with me after discharge HPI Consult Data Date of Consult: 06/03/25 HPI Narrative Reason for Consultation: urinary retention HPI Narrative: GOGO WARE, is a 85 F who fell and broke her femur. She had surgical intervention and this was followed by several strokes. Since this time she has been unable to void despite a trial of Flomax and she has her Rdz catheter reinserted. She denies a history of urologic issues previously. She is never seen a urologist. She has not had issues with urinary tract infections, difficulty with voiding, pelvic organ prolapse, urinary tract infections, kidneystones, hematuria. She denies a history of constipation does feel like she has to void constantly with her catheter in place. [facility] Medical History Femoral distal fracture Laceration of leg Closed head injury Abrasions of multiple sites Laceration of lip Pure hypercholesterolemia Nonrheumatic aortic (valve) stenosis Non-ST elevation (NSTEMI) myocardial infarction 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 Essential hypertension Seborrheic keratosis Generalized weakness Fall Home Medications ?Medication ?Instructions ?Recorded ?Last Taken ?Type brimonidine 0.2 % eye drops 2 drp EACH EYE BID glaucom a 11/25/17 11/25/17 History dorzolamide 22.3 mg-timolol 6.8 1 drp EACH EYE BID gla ucoma 11/25/17 11/25/17 History mg/mL eye drops latanoprost 0.005 % eye drops 1 drp ophthalmic (eye) Q PM glaucoma 12/17/19 Unknown History carvedilol 12.5 mg tablet 12.5 mg PO BID BP/pulse #180 tabs 11/03/24 Unknown Rx apixaban 5 mg tablet (Eliquis) 5 mg PO BID blood thinn er 05/07/25 Unknown History clopidogrel 75 mg tablet 75 mg PO DAILY antiplatelet 05/07/25 Unknown History temazepam 30 mg capsule 30 mg PO DAILY sleep 5 Unknown History acetaminophen 500 mg tablet 1,000 mg (2 x 500 mg) PO Q 8H Pain 05/14/25 Unknown Rx (Acetaminophen Pain Relief) 1-10 Or Fever >100.7 30 da ys #180 tabs atorvastatin 40 mg tablet 40 mg PO QHS cholesterol #0 tabs 05/14/25 Unknown Rx losartan 25 mg tablet 25 mg PO DAILY BP #0 tabs Unknown Rx oxycodone 5 mg tablet 2.5 - 5 mg PO Q4H PRN PRN Pa in 05/14/25 Unknown History Score 4-10 pantoprazole 40 mg tablet,delayed 40 mg PO DAILY reflu x #0 tabs 05/14/25 Unknown Rx release sennosides 8.6 mg-docusate sodium 2 tab PO BID stool s oftener #0 tabs 05/14/25 Unknown Rx 50 mg tablet (Stimulant Laxative Plus) Allergy/AdvReac Type Severity Reaction Status Date / Time No Known Allergies Allergy Verified 03/16/24 14:09 Family History Father Diabetes Grandmother Colon cancer Surgical History History of left heart catheterization (LHC) (~12/27/17) History of bilateral hip replacements Social History household members: none Smoking Status: Smoker, status unknown alcohol intake: current alcohol intake frequency: holidays/special occasions only Alcohol type: wine substance use type: does not use caffeine: Yes Type: coffee what type of physical activity do you participate in: none seatbelt use: always do you feel safe at home: Yes ROS Constitutional Constitutional: Denies anorexia, chills or fever(s) Eyes Eyes: Reports systems reviewed and no addt'l complaints, except as documented ENT HEENT: Reports systems reviewed and no addt'l complaints, except as documented Cardiovascular Cardiovascular: Denies chest pain, nausea or vomiting Respiratory/Chest Respiratory/Chest: Reports systems reviewed and no addt'l complaints, except as documented; Denies chest tightness or dyspnea Gastrointestinal Gastrointestinal: Denies abdominal pain, constipation, fecal incontinence, nausea or vomiting Genitourinary Genitourinary: Reports nocturia; Denies burning urination, dysuria, flank pain, hematuria, urinary frequency or urinary incontinence Musculoskeletal Musculoskeletal: Reports as per HPI Integumentary Integumentary: Reports systems reviewed and no addt'l complaints, except as documented Neurologic Neurologic: Reports systems reviewed and no addt'l complaints, except as documented Psychiatric Psychiatric: Reports systems reviewed and no addt'l complaints, except as documented Endocrine Endocrinology: Reports systems reviewed and no addt'l complaints, except as documented Hematologic/Lymphatic Hematologic/Lymphatic: Reports systems reviewed and no addt'l complaints, exceptas documented Allergic/Immunologic Allergic/Immunologic: Reports systems reviewed and no addt'l complaints, except as documented Physical Exam Const alert, oriented x3, no apparent distress and average body habitus HEENT normocephalic, head/scalp atraumatic, hearing grossly normal bilaterally, external ears normal, external nose normal and nasal mucous membranes and turbinates normal Eyes General Eye: normal appearance of both eyes Neck supple General: normal visual inspection and trachea midline Chest inspection of chest normal Chest: symmetrical chest wall rise Resp normal respiratory effort, normal air movement, no retractions and no use of accessory muscles Effort and Inspection: able to speak in complete sentences and symmetric chest movement Cardio regular rate GI soft to palpation and non-tender Narrative: Urethral Rdz catheter draining Skin no jaundice, no petechiae and no mottling Neuro oriented x3 and CN's II-XII intact bilaterally Psych mental status grossly normal, thought process normal and cooperative Medical Records Data Attestation: I reviewed the patient's medical records Lab / Micro Data Attestation: I reviewed the patient's lab results. 05/28/25 05:25 05/28/25 05:25 Micro: positive multi-organism UTI 06/03/25 1501 <Electronically signed by Katelyn Kuhn MD> Cosigner Signature (if applicable): CC: Dr. Eh Huddleston MD~ Signed [facility] Work Phone: [phone]) 868-276608-07-2025 Consult note [facility] Medical Records Department [address] [place] [address] Consultation 06/03/25 0754 MR#: [id number] Acct: [id number] Name: GOGO WARE p #:[id number] : 1940 85 From: Katelyn Millard PCP: Dr. Eh Huddleston MD Status:ADM I N Location: [place] [address] Assessment & Plan Assessment/Plan (1) Urinary retention: (2) Urinary tract infection: (3) Stroke: PLAN: Plan Aggressive management of any constipation Continue working with mobility Okay to continue with Rdz catheter in the acute situation or begin intermittent straight cath She will need further management and evaluation in the office as she progresses with possible urodynamics and cystoscopy From my standpoint, she can be discharged with Rdz catheter in place or she can be given another trial of void and started on intermittent cathing [address] she can follow-up with me after discharge HPI Consult Data Date of Consult: 06/03/25 HPI Narrative Reason for Consultation: urinary retention HPI Narrative: GOGO WARE, is a 85 F who fell and broke her femur. She had surgical intervention and this was followed by several strokes. Since this time she has been unable to void despite a trial of Flomaxand she has her Rdz catheter reinserted. She denies a history of urologic issues previously. She is never seen a urologist. She has not had issues with urinary tract infections, difficulty with voiding, pelvic organ prolapse, urinary tract infections, kidneystones, hematuria. She denies a historyof constipation does feel like she has to void constantly with her catheter in place. [facility] Medical History Femoral distal fracture Laceration of leg Closed head injury Abrasions of multiple sites Laceration of lip Pure hypercholesterolemia Nonrheumatic aortic (valve) stenosis Non-ST elevation (NSTEMI) myocardial infarction 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 Essential hypertension Seborrheic keratosis Generalized weakness Fall Home Medications ?Medication ?Instructions ?Recorded ?Last Taken ?Type brimonidine 0.2 % eye drops 2 drp EACH EYE BID glaucom a 11/25/17 11/25/17 History dorzolamide 22.3 mg-timolol 6.8 1 drp EACH EYE BID gla ucoma 11/25/17 11/25/17 History mg/mL eye drops latanoprost 0.005 % eye drops 1 drp ophthalmic (eye) Q PM glaucoma 12/17/19 Unknown History carvedilol 12.5 mg tablet 12.5 mg PO BID BP/pulse #180 tabs 11/03/24 Unknown Rx apixaban 5 mg tablet (Eliquis) 5 mg PO BID blood thinn er 05/07/25 Unknown History clopidogrel 75 mg tablet 75 mg PO DAILY antiplatelet 05/07/25 Unknown History temazepam 30 mg capsule 30 mg PO DAILY sleep 5 Unknown History acetaminophen 500 mg tablet 1,000 mg (2 x 500 mg) PO Q 8H Pain 05/14/25 Unknown Rx (Acetaminophen Pain Relief) 1-10 Or Fever >100.7 30 da ys #180 tabs atorvastatin 40 mg tablet 40 mg PO QHS cholesterol #0 tabs 05/14/25 Unknown Rx losartan 25 mg tablet 25 mg PO DAILY BP #0 tabs Unknown Rx oxycodone 5 mg tablet 2.5 - 5 mg PO Q4H PRN PRN Pa in 05/14/25 Unknown History Score 4-10 pantoprazole 40 mg tablet,delayed 40 mg PO DAILY reflu x #0 tabs 05/14/25 Unknown Rx release sennosides 8.6 mg-docusate sodium 2 tab PO BID stool s oftener #0 tabs 05/14/25 Unknown Rx 50 mg tablet (Stimulant Laxative Plus) Allergy/AdvReac Type Severity Reaction Status Date / Time No Known Allergies Allergy Verified 03/16/24 14:09 Family History Father Diabetes Grandmother Colon cancer Surgical History History of left heart catheterization (LHC) (~12/27/17) History of bilateral hip replacements Social History household members: none Smoking Status: Smoker, status unknown alcohol intake: current alcohol intake frequency: holidays/special occasions only Alcohol type: wine substance use type: does not use caffeine: Yes Type: coffee what type of physical activity do you participate in: none seatbelt use: always do you feel safe at home: Yes ROS Constitutional Constitutional: Denies anorexia, chills or fever(s) Eyes Eyes: Reports systems reviewed and no addt'l complaints, except as documented ENT HEENT: Reports systems reviewed and no addt'l complaints, except as documented Cardiovascular Cardiovascular: Denies chest pain, nausea or vomiting Respiratory/Chest Respiratory/Chest: Reports systems reviewed and no addt'l complaints, except as documented; Denies chest tightness or dyspnea Gastrointestinal Gastrointestinal: Denies abdominal pain, constipation, fecal incontinence, nausea or vomiting Genitourinary Genitourinary: Reports nocturia; Denies burning urination, dysuria, flank pain, hematuria, urinary frequency or urinary incontinence Musculoskeletal Musculoskeletal: Reports as per HPI Integumentary Integumentary: Reports systems reviewed and no addt'l complaints, except as documented Neurologic Neurologic: Reports systems reviewed and no addt'l complaints, except as documented Psychiatric Psychiatric: Reports systems reviewed and no addt'l complaints, except as documented Endocrine Endocrinology: Reports systems reviewed and no addt'l complaints, except as documented Hematologic/Lymphatic Hematologic/Lymphatic: Reports systems reviewed and no addt'l complaints, exceptas documented Allergic/Immunologic Allergic/Immunologic: Reports systems reviewed and no addt'l complaints, except as documented Physical Exam Const alert, oriented x3, no apparent distress and average body habitus HEENT normocephalic, head/scalp atraumatic, hearing grossly normal bilaterally, external ears normal, external nose normal and nasal mucous membranes and turbinates normal Eyes General Eye: normal appearance of both eyes Neck supple General: normal visual inspection and trachea midline Chest inspection of chest normal Chest: symmetrical chest wall rise Resp normal respiratory effort, normal air movement, no retractions and no use of accessory muscles Effort and Inspection: able to speak in complete sentences and symmetric chest movement Cardio regular rate GI soft to palpation and non-tender Narrative: Urethral Rdz catheter draining Skin no jaundice, no petechiae and no mottling Neuro oriented x3 and CN's II-XII intact bilaterally Psych mental status grossly normal, thought process normal and cooperative Medical Records Data Attestation: I reviewed the patient's medical records Lab / Micro Data Attestation: I reviewed the patient's lab results. 05/28/25 05:25 05/28/25 05:25 Micro: positive multi-organism UTI 06/03/25 1501 Cosigner Signature (if applicable): CC: Dr. Eh Huddleston MD~ Signed [facility]08-07-2025 [facility] History and physical note Author Eh Huddleston [facility] Note Date/Time May 26, 2025 7:31 am [facility] Medical Records Department [address] [place] [address] History & Physical Exam 05/14/25 1513 MR#: [id number] Acct: [id number] Name: GOGO WARELOLA Gordon p #:[id number] : 1940 85 From: Eh Huddleston MD PCP: Dr. Eh Huddleston MD Status:ADM I N Location: [place] [address] HPI - General General Date of Admission: 05/14/25 Date of Service: 05/14/25 Chief Complaint: Here for rehabilitation. HPI Narrative GOGO WARE, is a 85 Female who presents with followin05/07/2025 [facility] ED fall. Tripped, twisted left upper leg, fell on bilateral knees, unable to walk 2/2 left thigh pain. X-ray shows left distal femur fracture. 05/07/2025 Admit [facility]. Prepare for surgery left distal femur fracture, hold Eliquis, hold Plavix. 05/08/2025 Left leg pain. Stable for surgery. 05/09/2025 Dr. Livingston performed ORIF left femoral shaft. 05/10/2025 Stroke alert, then cancelled. CT head negative, CTA head/neck negative. Check labs, urinalysis, patient states she wanted to . PT/OT SNF. 05/11/2025 MRI brain for somnolence. Hemoglobin 6.3, transfuse 2 units PRBC. Continue antibiotics, blood cultures pending. 05/11/2025 Echo EF 65%. Stage 2 diastolic dysfunction. Stable bioprosthetic aortic valve. PASP 52mm HG. 05/11/2025 MRI brain showed multiple strokes. 05/12/2025 PT/OT SNF. Aspirin, Eliquis, high intensity statin, 30 day event monitor for stroke. 05/13/2025 Pre-CERT TCU. 05/14/2025 Admit to TCU for debility, here for rehabilitation, strengthening, prior to discharge home alone. 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 Essential hypertension Seborrheic keratosis Generalized weakness Fall Home Medications ?Medication ?Instructions ?Recorded ?Last Taken ?Type brimonidine 0.2 % eye drops 2 drp EACH EYE BID glaucom a 11/25/17 11/25/17 History dorzolamide 22.3 mg-timolol 6.8 1 drp EACH EYE BID gla ucoma 11/25/17 11/25/17 History mg/mL eye drops latanoprost 0.005 % eye drops 1 drp ophthalmic (eye) Q PM glaucoma 12/17/19 Unknown History carvedilol 12.5 mg tablet 12.5 mg PO BID BP/pulse #180 tabs 11/03/24 Unknown Rx apixaban 5 mg tablet (Eliquis) 5 mg PO BID blood thinn er 05/07/25 Unknown History clopidogrel 75 mg tablet 75 mg PO DAILY antiplatelet 05/07/25 Unknown History temazepam 30 mg capsule 30 mg PO DAILY sleep 5 Unknown History acetaminophen 500 mg tablet 1,000 mg (2 x 500 mg) PO Q 8H Pain 05/14/25 Unknown Rx (Acetaminophen Pain Relief) 1-10 Or Fever >100.7 30 da ys #180 tabs atorvastatin 40 mg tablet 40 mg PO QHS cholesterol #0 tabs 05/14/25 Unknown Rx losartan 25 mg tablet 25 mg PO DAILY BP #0 tabs Unknown Rx oxycodone 5 mg tablet 2.5 - 5 mg PO Q4H PRN PRN Pa in 05/14/25 Unknown History Score 4-10 pantoprazole 40 mg tablet,delayed 40 mg PO DAILY reflu x #0 tabs 05/14/25 Unknown Rx release sennosides 8.6 mg-docusate sodium 2 tab PO BID stool s oftener #0 tabs 05/14/25 Unknown Rx 50 mg tablet (Stimulant Laxative Plus) Allergy/AdvReac Type Severity Reaction Status Date / Time No Known Allergies Allergy Verified 03/16/24 14:09 Family History Father Diabetes Grandmother Colon cancer Surgical History History of left heart catheterization (LHC) (~12/27/17) History of bilateral hip replacements Social History (Updated 05/14/25 @ 15:[address] Eh Huddleston MD) household members: none Smoking Status: Smoker, status unknown alcohol intake: current alcohol intake frequency: holidays/special occasions only Alcohol type: wine substance use type: does not use caffeine: Yes Type: coffee what type of physical activity do you participate in: none seatbelt use: always do you feel safe at home: Yes ROS Constitutional Constitutional: Reports weakness; Denies chills, fever(s) or weight gain ENT HEENT: Denies headache(s), nasal congestion or nasal discharge Cardiovascular Cardiovascular: Denies chest pain or palpitations Respiratory/Chest Respiratory/Chest: Denies cough, excessive phlegm production or shortness of breath with exertion Gastrointestinal Gastrointestinal: Denies abdominal pain, nausea or vomiting Genitourinary Genitourinary: Denies dysuria Musculoskeletal Musculoskeletal: Denies joint pain or joint swelling Integumentary Integumentary: Denies rash or wounds Neurologic Neurologic: Denies focal weakness, numbness or tingling Psychiatric Psychiatric: Denies anxiety, auditory hallucinations, depression, homicidal ideation or suicidal ideation Vital Signs Vital Signs Vital Signs: 05/14/25 15:07 Temperature 98.0 F Temperature Source Temporal Pulse Rate 78 Respiratory Rate 18 Blood Pressure 148/64 H Blood Pressure Mean 92 Blood Pressure Source Monitor Blood Pressure Position Semi-Fowlers Blood Pressure Location Left Arm Pulse Ox 99 Oxygen Delivery Method Room Air Physical Exam Const alert General Appearance: cooperative HEENT normocephalic Eyes PERRL and EOMs intact bilaterally Neck supple, no JVD and no carotid bruits Resp normal respiratory effort, normal air movement and clear to auscultation bilaterally Cardio regular rate and regular rhythm GI normal to inspection, nondistended, normoactive bowel sounds, non-tender and non-distended Bladder / Kidney Exam: catheter in place urethral Extremity normal capillary refill General Extremity: Negative for edema Skin no rashes or lesions noted General Skin Exam: no breakdown Psych affect normal Appearance: appropriate Assessment & Plan Assessment/Plan (1) Debility: (2) Femoral distal fracture: QUALIFIERS: Encounter type: initial encounter Fracture type: closed Laterality: left (3) Stroke: (4) Essential (primary) hypertension: (5) Hyperlipidemia: (6) Coronary artery disease: (7) DVT (deep venous thrombosis): (8) Glaucoma: (9) Insomnia: PLAN: Plan 85 year old female with below past medical history hospitalized left distal femur fracture, underwent orif 05/09/[address] Livingston, postoperative course complicated by acute blood loss anemia requiring transfusion, stroke, urinary retention, admitted to TCU with debility, here for rehabilitation, strengthening, prior to discharge home alone. * Debility - PT/OT. * Pain - Tylenol 1000mg q8, Oxycodone 2.5mg - 5mg q4 prn pain. * Bowel - senna/colace 2 tablets bid, Magnesium citrate 300mL daily prn. * Adult immunization - Administer pneumonia vaccine, covid vaccine, flu vaccine as appropriate. * DVT prophylaxis - Eliquis. * Recurrent DVT - Eliquis 5mg bid. * Hyperlipidemia - Atorvastatin 40mg qhs. * Glaucoma - Brimonidine 2gtt ou bid, Dorzolamide/Timolol 1gtt ou bid, Latanoprost 1gtt ou qpm. * Coronary artery disease - Coreg 12.5mg bid, Losartan 25mg daily, Plavix 75mg daily, Eliquis 5mg bid. * Stroke - Plavix 75mg daily, Eliquis 5mg bid, 30 day event monitor. * GERD - Pantoprazole 40mg daily. * Urinary retention - Tamsulosin 0.4mg daily, indwelling rdz catheter, voiding trials. The following psychotropic medication was present on admission: Temazepam 30mg qhs. Psychotropic medication therapy is indicated for a diagnosis of: Insomnia. Based on my clinical evaluation, continuation of the medication is necessary at this time. Gradual dose reduction plan (select one): ____ GDR will be attempted. Will monitor patient symptoms and behaviors in response to GDR. __x__ GRD contraindicated. Reason contraindicated: 05/14/25 1537 <Electronically signed by hE Huddleston MD> Cosigner Signature (if applicable): CC: Dr. Eh Huddleston MD~ Signed ADDENDUM by Dr. Eh Huddleston MD on 05/26/25 at 0731 Addendum UTI - UA c/w UTI, Cipro 250mg po bid x 7 days, urine culture pending. 05/26/25730<Electronically signed by Eh Huddleston MD> Cosigner Signature (if applicable): cc: Dr. Eh Huddleston MD ~* Signed [facility] Work Phone: 1(919) 998-776607-30-2025 History and physical note [facility] Medical Records Department [address] [place] [id number] History & Physical Exam 05/14/25 1513 MR#: [id number] Acct: [id number] Name: GOGO WARE p #:[id number] : 1940 85 From: Eh Huddleston MD PCP: Dr. Eh Huddleston MD Status:ADM I N Location: [facility] [place] [address] HPI - General General Date of Admission: 05/14/25 Date of Service: 05/14/25 Chief Complaint: Here for rehabilitation. HPI Narrative GOGO WARE, is a 85 Female who presents with followin05/07/2025 [facility] ED fall. Tripped, twisted left upper leg, fell on bilateral knees, unable to walk 2/2 left thigh pain. X-ray shows left distal femur fracture. 05/07/2025 Admit [facility]. Prepare for surgery left distal femur fracture, hold Eliquis, hold Plavix. 05/08/2025 Left leg pain. Stable for surgery. 05/09/2025 Dr. Livingston performed ORIF left femoral shaft. 05/10/2025 Stroke alert, then cancelled. CT head negative, CTA head/neck negative. Check labs, urinalysis, patient states she wanted to . PT/OT SNF. 05/11/2025 MRI brain for somnolence. Hemoglobin 6.3, transfuse 2 units PRBC. Continue antibiotics, blood cultures pending. 05/11/2025 Echo EF 65%. Stage 2 diastolic dysfunction. Stable bioprosthetic aortic valve. PASP 52mm HG. 05/11/2025 MRI brain showed multiple strokes. 05/12/2025 PT/OT SNF. Aspirin, Eliquis, high intensity statin, 30 day event monitor for stroke. 05/13/2025 Pre-[facility]ERT TCU. 05/14/2025 Admit to TCU for debility, here for rehabilitation, strengthening, prior to discharge home alone. 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 Essential hypertension Seborrheic keratosis Generalized weakness Fall Home Medications ?Medication ?Instructions ?Recorded ?Last Taken ?Type brimonidine 0.2 % eye drops 2 drp EACH EYE BID glaucom a 11/25/17 11/25/17 History dorzolamide 22.3 mg-timolol 6.8 1 drp EACH EYE BID gla ucoma 11/25/17 11/25/17 History mg/mL eye drops latanoprost 0.005 % eye drops 1 drp ophthalmic (eye) Q PM glaucoma 12/17/19 Unknown History carvedilol 12.5 mg tablet 12.5 mg PO BID BP/pulse #180 tabs 11/03/24 Unknown Rx apixaban 5 mg tablet (Eliquis) 5 mg PO BID blood thinn er 05/07/25 Unknown History clopidogrel 75 mg tablet 75 mg PO DAILY antiplatelet 05/07/25 Unknown History temazepam 30 mg capsule 30 mg PO DAILY sleep 5 Unknown History acetaminophen 500 mg tablet 1,000 mg (2 x 500 mg) PO Q 8H Pain 05/14/25 Unknown Rx (Acetaminophen Pain Relief) 1-10 Or Fever >100.7 30 da ys #180 tabs atorvastatin 40 mg tablet 40 mg PO QHS cholesterol #0 tabs 05/14/25 Unknown Rx losartan 25 mg tablet 25 mg PO DAILY BP #0 tabs Unknown Rx oxycodone 5 mg tablet 2.5 - 5 mg PO Q4H PRN PRN Pa in 05/14/25 Unknown History Score 4-10 pantoprazole 40 mg tablet,delayed 40 mg PO DAILY reflu x #0 tabs 05/14/25 Unknown Rx release sennosides 8.6 mg-docusate sodium 2 tab PO BID stool s oftener #0 tabs 05/14/25 Unknown Rx 50 mg tablet (Stimulant Laxative Plus) Allergy/AdvReac Type Severity Reaction Status Date / Time No Known Allergies Allergy Verified 03/16/24 14:09 Family History Father Diabetes Grandmother Colon cancer Surgical History History of left heart catheterization (LHC) (~03/02/18) History of bilateral hip replacements Social History (Updated 05/14/25 @ 15:[address] Eh Huddleston MD) household members: none Smoking Status: Smoker, status unknown alcohol intake: current alcohol intake frequency: holidays/special occasions only Alcohol type: wine substance use type: does not use caffeine: Yes Type: coffee what type of physical activity do you participate in: none seatbelt use: always do you feel safe at home: Yes ROS Constitutional Constitutional: Reports weakness; Denies chills, fever(s) or weight gain ENT HEENT: Denies headache(s), nasal congestion or nasal discharge Cardiovascular Cardiovascular: Denies chest pain or palpitations Respiratory/Chest Respiratory/Chest: Denies cough, excessive phlegm production or shortness of breath with exertion Gastrointestinal Gastrointestinal: Denies abdominal pain, nausea or vomiting Genitourinary Genitourinary: Denies dysuria Musculoskeletal Musculoskeletal: Denies joint pain or joint swelling Integumentary Integumentary: Denies rash or wounds Neurologic Neurologic: Denies focal weakness, numbness or tingling Psychiatric Psychiatric: Denies anxiety, auditory hallucinations, depression, homicidal ideation or suicidal ideation Vital Signs Vital Signs Vital Signs: 05/14/25 15:07 Temperature 98.0 F Temperature Source Temporal Pulse Rate 78 Respiratory Rate 18 Blood Pressure 148/64 H Blood Pressure Mean 92 Blood Pressure Source Monitor Blood Pressure Position Semi-Fowlers Blood Pressure Location Left Arm Pulse Ox 99 Oxygen Delivery Method Room Air Physical Exam Const alert General Appearance: cooperative HEENT normocephalic Eyes PERRL and EOMs intact bilaterally Neck supple, no JVD and no carotid bruits Resp normal respiratory effort, normal air movement and clear to auscultation bilaterally Cardio regular rate and regular rhythm GI normal to inspection, nondistended, normoactive bowel sounds, non-tender and non-distended Bladder / Kidney Exam: catheter in place urethral Extremity normal capillary refill General Extremity: Negative for edema Skin no rashes or lesions noted General Skin Exam: no breakdown Psych affect normal Appearance: appropriate Assessment & Plan Assessment/Plan (1) Debility: (2) Femoral distal fracture: QUALIFIERS: Encounter type: initial encounter Fracture type: closed Laterality: left (3) Stroke: (4) Essential (primary) hypertension: (5) Hyperlipidemia: (6) Coronary artery disease: (7) DVT (deep venous thrombosis): (8) Glaucoma: (9) Insomnia: PLAN: Plan 85 year old female with below past medical history hospitalized left distal femur fracture, underwent orif 05/09/[address] Livingston, postoperative course complicated by acute blood loss anemia requiring transfusion, stroke, urinary retention, admitted to TCU with debility, here for rehabilitation, strengthening, prior to discharge home alone. * Debility - PT/OT. * Pain - Tylenol 1000mg q8, Oxycodone 2.5mg - 5mg q4 prn pain. * Bowel - senna/colace 2 tablets bid, Magnesium citrate 300mL daily prn. * Adult immunization - Administer pneumonia vaccine, covid vaccine, flu vaccine as appropriate. * DVT prophylaxis - Eliquis. * Recurrent DVT - Eliquis 5mg bid. * Hyperlipidemia - Atorvastatin 40mg qhs. * Glaucoma - Brimonidine 2gtt ou bid, Dorzolamide/Timolol 1gtt ou bid, Latanoprost 1gtt ou qpm. * Coronary artery disease - Coreg 12.5mg bid, Losartan 25mg daily, Plavix 75mg daily, Eliquis 5mg bid. * Stroke - Plavix 75mg daily, Eliquis 5mg bid, 30 day event monitor. * GERD - Pantoprazole 40mg daily. * Urinary retention - Tamsulosin 0.4mg daily, indwelling rdz catheter, voiding trials. The following psychotropic medication was present on admission: Temazepam 30mg qhs. Psychotropic medication therapy is indicated for a diagnosis of: Insomnia. Based on my clinical evaluation, continuation of the medication is necessary at this time. Gradual dose reduction plan (select one): ____ GDR will be attempted. Will monitor patient symptoms and behaviors in response to GDR. __x__ GRD contraindicated. Reason contraindicated: 05/14/25 1537 Cosigner Signature (if applicable): CC: Dr. Eh Huddleston MD~ Signed ADDENDUM by Dr. Eh Huddleston MD on 05/26/25 at 0731 Addendum UTI - UA c/w UTI, Cipro 250mg po bid x 7 days, urine culture pending. 05/26/25 0731 Cosigner Signature (if applicable): cc: Dr. Eh Huddleston MD ~* Signed [facility]07-19-2025 Progress note Author Vincent Maddox [facility] Note Date/Time May 15, 2025 10:1 4am [facility] Medical Records Department [address] [place] [address] Progress Note - Pharmacy 05/15/25 0941 MR#: [id number] Acct: [id number] Name: GOGO WARE p #:[id number] : 1940 85 From: Vincent Maddox PCP: Dr. Eh Huddleston MD Status:ADM I N Location: [facility] [place] [address] Documented by User: Vincent Maddox 05/15/25 10:11 TCU RX Drug Regimen Review Subjective/Objective Subjective/Objective Subjective: 85 year old female with be/low past medical history hospitalized left distal femur fracture, underwent orif 05/09/[address] Livingston, postoperative course complicated by acute blood loss anemia requiring transfusion, stroke, urinary retention, admitted to TCU with debility, here for rehabilitation, strengthening, prior to discharge home alone. Objective: Allergies No Known Allergies Allergy (Verified 03/16/24 14:09) Current Medications Generic Name Dose Route Start Last Admin Trade Name Freq PRN Reason Stop Dose Admin Acetaminophen 1,000 mg 05/14/25 22:00 05/15/25 05:44 Acetaminophen 500 Mg Tablet PO 1,000 mg Q8 ROBE Administration Apixaban 5 mg 05/14/25 22:00 05/14/25 20:45 Apixaban 5 Mg Tablet PO 5 mg BID ROBE Administration Atorvastatin Calcium 40 mg 05/14/25 22:00 05/14/25 20:45 Atorvastatin Calcium 40 Mg Tablet PO 40 mg QHS ROBE Administration Brimonidine Tartrate 2 drp 05/14/25 22:00 05/14/25 20:37 Brimonidine 0.2% 5ml Bottle EACH EYE 2 drp BID ROBE Administration Carvedilol 12.5 mg 05/14/25 17:00 05/14/25 17:02 Carvedilol 12.5 Mg Tablet PO 12.5 mg BIDCM ROBE Administration Protocol Clopidogrel Bisulfate 75 mg 05/15/25 10:00 Clopidogrel Bisulfate 75 Mg Tablet PO DAILY ROBE Dorzolamide/Timolol 1 drp 05/14/25 22:00 05/14/25 20:39 Dorzolamide Hcl/Timolol 10 Ml Bottle EACH EYE 1 drp BID ROBE Administration Latanoprost 1 drp 05/14/25 22:00 05/14/25 20:41 Latanoprost 0.005% 1 Bottle OPHTHALMIC 1 drp QHS ROBE Administration Losartan Potassium 25 mg 05/15/25 10:00 Losartan Potassium 25 Mg Tablet PO DAILY [facility] Protocol Magnesium Citrate 300 ml 05/14/25 15:18 Magnesium Citrate 300 Ml PO X1 PRN Constipation Oxycodone HCl 2.5 - 5 mg 05/14/25 15:14 Oxycodone 5 Mg Tablet PO Q4H PRN PRN Pain Score 1-10 Pantoprazole Sodium 40 mg 05/15/25 10:00 Pantoprazole Sodium 40 Mg Tablet PO DAILY [facility] Senna/Docusate Sodium 2 tablet 05/14/25 22:00 05/14/25 20:46 Senna/Docusate Sodium 1 Tablet PO 2 tablet BID ROBE Administration Sodium Chloride 10 - 40 ml 05/14/25 20:33 05/14/25 21:00 0.9% Saline Lock 10 Ml Syringe IV 10 ml UD PRN Administration SALINE FLUSH Tamsulosin HCl 0.4 mg 05/14/25 17:30 05/14/25 17:02 Tamsulosin Hcl 0.4 Mg Capsule PO 0.4 mg DAILY@1730 [facility] Administration Temazepam 30 mg 05/14/25 22:00 05/14/25 20:52 Temazepam 15 Mg Capsule PO 30 mg QHS ROBE Administration Tuberculin PPD 0.1 ml 05/15/25 10:00 Tuberculin,Purif.Prot.Deriv. 50 Tu/Ml Vial ID 05/15/25 10:01 X1 ONE Tuberculin PPD 0.1 ml 05/22/25 10:00 Tuberculin,Purif.Prot.Deriv. 50 Tu/Ml Vial ID 05/22/25 10:01 X1 ONE Problem List Insomnia (Acute) Glaucoma (Acute) DVT (deep venous thrombosis) (Acute) Coronary artery disease (Acute) Hyperlipidemia (Acute) Essential (primary) hypertension (Acute) Stroke (Acute) Debility (Acute) Femoral distal fracture (Acute) Vital Signs Temp Pulse Resp BP Pulse Ox O2 Del Method 98.0 F 70 18 148/64 H 99 Room Air 05/14/25 15:07 05/14/25 15:07 05/14/25 15:07 05/14/25 15:07 05/14/25 15:07 05/14/25 15:07 Oxygen Delivery Method Room Air Weight: 82.327 kg Body Mass Index (BMI) 30.2 Sodium 136 mmol/L (133-145) 05/15/25 06:48 Potassium 4.1 mmol/L (3.3-5.1) 05/15/25 06:48 Chloride 105 mmol/L (98-108) 05/15/25 06:48 Carbon Dioxide 22.8 mmol/L (21.0-32.0) 05/15/25 06:48 Anion Gap 8 (5-15) 05/15/25 06:48 BUN 26 mg/dL (4-19) H 05/15/25 06:48 Creatinine 0.69 mg/dL (0.70-1.20) L 05/15/25 06:48 Est GFR (MDRD) Non-Af 84 (>60) 05/15/25 06:48 BUN/Creatinine Ratio 37.4 RATIO (10-20) H 05/15/25 06:48 Glucose 116 mg/dL (70-99) H 05/15/25 06:48 Assessment/Plan: 1. Pain: acetaminophen 1000 mg PO Q8H, oxycodone 2.5-5 mg PO Q4H PRN pain. The patient has not required any PRN doses of oxycodone so far this admission. Please continue to monitor pain levels, PRN medication usage, LFTs (AST/ALT = 53/12 U/L on 03/31/25), for constipation, respiratory depression, syncope/ataxia/falls, and for dizziness/drowsiness. 2. Bowel: senna/docusate 2 tablets PO BID, magnesium citrate 300 mL PO daily PRNconstipation. Please continue to monitor for PRN medication usage (the patient has not used any PRN doses of magnesium citrate so far this admission), for bowel movements (the patient's last documented bowel movement was on 05/15/25), and for constipation and diarrhea. 3. Recurrent DVT: apixaban 5 mg PO BID. Please continue to monitor for s/s of DVT such as pain/swelling/erythema in an extremity, for s/s of bleeding/excessive bruising, hemoglobin levels (Hgb = 8.4 g/dL on 05/15/25), and platelet counts (Plt = 182 K/mm3 on 05/15/25). 4. Hyperlipidemia: atorvastatin 40 mg PO QHS. Please continue to monitor lipid levels (cholesterol = 122 mg/dL on 05/13/25), LDL levels (LDL = 61 mg/dL on 05/13/25), LFTs (AST/ALT = 53/12 U/L on 03/31/25), and for myalgias. 5. CAD/Stroke: carvedilol 12.5 mg PO BID, clopidogrel 75 mg Po daily, losartan 25 mg PO daily. Please continue to monitor for chest pain, for s/s of stroke, blood pressures (recent range = 113-181/43-70 mmHg), heart rates (recent range =63-78 beats/min), for fatigue, for s/s of bleeding/excessive bruising, platelet counts (Plt = 182 K/mm3 on 05/15/25), renal function (serum creatinine = 0.69 mg/dL with creatinine clearance ~ 53 mL/min on 05/15/25), and potassium levels (K= 4.1 mmol/L on 05/15/25. 6. Glaucoma: brimonidine 2 drops in each eye BID, dorzolamide timolol 1 drop in each eye BID, latanoprost 1 drop in each eye QHS. Please continue to monitor eyehealth, blood pressures (recent range = 113-181/43-70 mmHg), blurry vision, burning/stinging in eyes, and eye pain. 7. GERD: pantoprazole 40 mg PO daily. Please continue to monitor for s/s of GERD, for diarrhea that could indicate clostridium difficile infection, and for s/s of bone resorption such as fractures. 8. Urinary retention: tamsulosin 0.4 mg daily. Please continue to monitor for urinary retention, and for s/s of orthostasis. Assessment/Plan for indications treated with psychotropic medications: 1. Insomnia: temazepam 30 mg PO QHS. This is a stable/chronic/long-term therapy therefore GDR likely contraindicated. Monitor for efficacy including resident symptoms, behaviors and indications of distress. Monitor for insomnia. Monitor for tolerability including mental status, cognition, excessive sleepiness, withdrawal or decreased participation in activities and decline in physical functioning. Maximize use of nonpharmacologic/behavioral interventions to facilitate dose reduction or discontinuation as appropriate. Please evaluate the appropriateness of GDR unless contraindicated. If appropriate, GDR should be attempted in 2 separate quarters within the first year of use or admission to TCU. If GDR attempted, monitor resident symptoms/behaviors.Monitor for sedation, mental status and cognition. Monitor for falls (risk factor for falls) and implement fall prevention strategies. Monitor for respiratory depression. RR range since admission = 16-18 breaths/min. Medical chart and medication regimen reviewed. The following medication irregularities or issues were identified: NA Date Date of Note: 05/15/25 Documented by User: Dr. Eh Huddleston MD 05/15/25 10:14 TCU RX Drug Regimen Review Provider Comments Provider responsibility Provider Comments to Recommendations by Pharmacy Agree 05/15/25 1011 <Electronically signed by Vincent Maddox> Vincent Josephignnaveed Signature (if applicable): 05/15/25 1014 <Electronically signed by Eh Huddleston MD> CC: ~ Signed [facility] Work Phone: 1(210) 207-972207-19-2025 Progress note [facility] Medical Records Department [address] [place] [id number] Progress Note - Pharmacy 05/15/25 0941 MR#: [id number] Acct: [id number] Name: GOGO WARE p #:[id number] : 1940 85 From: Vincent Maddox PCP: Dr. Eh Huddleston MD Status:ADM I N Location: [place] [address] Documented by User: Vincent Maddox 05/15/25 10:11 TCU RX Drug Regimen Review Subjective/Objective Subjective/Objective Subjective: 85 year old female with be/low past medical history hospitalized left distal femur fracture, underwent orif 05/09/[address] Livingston, postoperative course complicated by acute blood loss anemia requiring transfusion, stroke, urinary retention, admitted to TCU with debility, here for rehabilitation, strengthening, prior to discharge home alone. Objective: Allergies No Known Allergies Allergy (Verified 03/16/24 14:09) Current Medications Generic Name Dose Route Start Last Admin Trade Name Freq PRN Reason Stop Dose Admin Acetaminophen 1,000 mg 05/14/25 22:00 05/15/25 05:44 Acetaminophen 500 Mg Tablet PO 1,000 mg Q8 ROBE Administration Apixaban 5 mg 05/14/25 22:00 05/14/25 20:45 Apixaban 5 Mg Tablet PO 5 mg BID ROBE Administration Atorvastatin Calcium 40 mg 05/14/25 22:00 05/14/25 20:45 Atorvastatin Calcium 40 Mg Tablet PO 40 mg QHS ROBE Administration Brimonidine Tartrate 2 drp 05/14/25 22:00 05/14/25 20:37 Brimonidine 0.2% 5ml Bottle EACH EYE 2 drp BID ROBE Administration Carvedilol 12.5 mg 05/14/25 17:00 05/14/25 17:02 Carvedilol 12.5 Mg Tablet PO 12.5 mg BIDCM ROBE Administration Protocol Clopidogrel Bisulfate 75 mg 05/15/25 10:00 Clopidogrel Bisulfate 75 Mg Tablet PO DAILY ROBE Dorzolamide/Timolol 1 drp 05/14/25 22:00 05/14/25 20:39 Dorzolamide Hcl/Timolol 10 Ml Bottle EACH EYE 1 drp BID ROBE Administration Latanoprost 1 drp 05/14/25 22:00 05/14/25 20:41 Latanoprost 0.005% 1 Bottle OPHTHALMIC 1 drp QHS ROBE Administration Losartan Potassium 25 mg 05/15/25 10:00 Losartan Potassium 25 Mg Tablet PO DAILY ROBE Protocol Magnesium Citrate 300 ml 05/14/25 15:18 Magnesium Citrate 300 Ml PO X1 PRN Constipation Oxycodone HCl 2.5 - 5 mg 05/14/25 15:14 Oxycodone 5 Mg Tablet PO Q4H PRN PRN Pain Score 1-10 Pantoprazole Sodium 40 mg 05/15/25 10:00 Pantoprazole Sodium 40 Mg Tablet PO DAILY ROBE Senna/Docusate Sodium 2 tablet 05/14/25 22:00 05/14/25 20:46 Senna/Docusate Sodium 1 Tablet PO 2 tablet BID ROBE Administration Sodium Chloride 10 - 40 ml 05/14/25 20:33 05/14/25 21:00 0.9% Saline Lock 10 Ml Syringe IV 10 ml UD PRN Administration SALINE FLUSH Tamsulosin HCl 0.4 mg 05/14/25 17:30 05/14/25 17:02 Tamsulosin Hcl 0.4 Mg Capsule PO 0.4 mg DAILY@1730 ROBE Administration Temazepam 30 mg 05/14/25 22:00 05/14/25 20:52 Temazepam 15 Mg Capsule PO 30 mg QHS ROBE Administration Tuberculin PPD 0.1 ml 05/15/25 10:00 Tuberculin,Purif.Prot.Deriv. 50 Tu/Ml Vial ID 05/15/25 10:01 X1 ONE Tuberculin PPD 0.1 ml 05/22/25 10:00 Tuberculin,Purif.Prot.Deriv. 50 Tu/Ml Vial ID 05/22/25 10:01 X1 ONE Problem List Insomnia (Acute) Glaucoma (Acute) DVT (deep venous thrombosis) (Acute) Coronary artery disease (Acute) Hyperlipidemia (Acute) Essential (primary) hypertension (Acute) Stroke (Acute) Debility (Acute) Femoral distal fracture (Acute) Vital Signs Temp Pulse Resp BP Pulse Ox O2 Del Method 98.0 F 70 18 148/64 H 99 Room Air 05/14/25 15:07 05/14/25 15:07 05/14/25 15:07 05/14/25 15:07 05/14/25 15:07 05/14/25 15:07 Oxygen Delivery Method Room Air Weight: 82.327 kg Body Mass Index (BMI) 30.2 Sodium 136 mmol/L (133-145) 05/15/25 06:48 Potassium 4.1 mmol/L (3.3-5.1) 05/15/25 06:48 Chloride 105 mmol/L (98-108) 05/15/25 06:48 Carbon Dioxide 22.8 mmol/L (21.0-32.0) 05/15/25 06:48 Anion Gap 8 (5-15) 05/15/25 06:48 BUN 26 mg/dL (4-19) H 05/15/25 06:48 Creatinine 0.69 mg/dL (0.70-1.20) L 05/15/25 06:48 Est GFR (MDRD) Non-Af 84 (>60) 05/15/25 06:48 BUN/Creatinine Ratio 37.4 RATIO (10-20) H 05/15/25 06:48 Glucose 116 mg/dL (70-99) H 05/15/25 06:48 Assessment/Plan: 1. Pain: acetaminophen 1000 mg PO Q8H, oxycodone 2.5-5 mg PO Q4H PRN pain. The patient has not required any PRN doses of oxycodone so far this admission. Please continue to monitor pain levels, PRN medication usage, LFTs (AST/ALT = 53/12 U/L on 03/31/25), for constipation, respiratory depression, sync ope/ataxia/falls, and for dizziness/drowsiness. 2. Bowel: senna/docusate 2 tablets PO BID, magnesium citrate 300 mL PO daily PRNconstipation. Please continue to monitor for PRN medication usage (the patient has not used any PRN doses of magnesium citrate so far this admission), for bowel movements (the patient's last documented bowel movement was on 05/15/25), and for constipation and diarrhea. 3. Recurrent DVT: apixaban 5 mg PO BID. Please continue to monitor for s/s of DVT such as pain/swelling/erythema in an extremity, for s/s of bleeding/excessive bruising, hemoglobin levels (Hgb = 8.4 g/dL on 05/15/25), and platelet counts (Plt = 182 K/mm3 on 05/15/25). 4. Hyperlipidemia: atorvastatin 40 mg PO QHS. Please continue to monitor lipid levels (cholesterol = 122 mg/dL on 05/13/25), LDL levels (LDL = 61 mg/dL on 05/13/25), LFTs (AST/ALT = 53/12 U/L on 03/31/25), and for myalgias. 5. CAD/Stroke: carvedilol 12.5 mg PO BID, clopidogrel 75 mg Po daily, losartan 25 mg PO daily. Please continue to monitor for chest pain, for s/s of stroke, blood pressures (recent range = 113-181/43-70 mmHg), heart rates (recent range =63-78 beats/min), for fatigue, for s/s of bleeding/excessive bruising, platelet counts (Plt = 182 K/mm3 on 05/15/25), renal function (serum creatinine = 0.69 mg/dLwith creatinine clearance ~ 53 mL/min on 05/15/25), and potassium levels (K= 4.1 mmol/L on 05/15/25. 6. Glaucoma: brimonidine 2 drops in each eye BID, dorzolamide timolol 1 drop in each eye BID, latanoprost 1 drop in each eye QHS. Please continue to monitor eyehealth, blood pressures (recent range =113-181/43-70 mmHg), blurry vision, burning/stinging in eyes, and eye pain. 7. GERD: pantoprazole 40 mg PO daily. Please continue to monitor for s/s of GERD, for diarrhea thatcould indicate clostridium difficile infection, and for s/s of bone resorption such as fractures. 8. Urinary retention: tamsulosin 0.4 mg daily. Please continue to monitor for urinary retention, and for s/s of orthostasis. Assessment/Plan for indications treated with psychotropic medications: 1. Insomnia: temazepam 30 mg PO QHS. This is a stable/chronic/long-term therapy therefore GDR likely contraindicated. Monitor for efficacy including resident symptoms, behaviors and indications of distress. Monitor for insomnia. Monitor for tolerability including mental status, cognition, excessive sleepiness, withdrawal or decreased participation in activities and decline in physical functioning. Maximize use of nonpharmacologic/behavioral interventions to facilitate dose reduction or discontinuation as appropriate. Please evaluate the appropriateness of GDR unless contraindicated. If appropriate, GDR should be attempted in 2 separate quarters within the first year of use or admission to TCU. If GDR attempted, monitor resident symptoms/behaviors.Monitor for sedation, mental status and cognition. Monitor for falls (risk factor for falls) and implement fall prevention strategies. Monitor for respiratory depression. RR range since admission = 16-18 breaths/min. Medical chart and medication regimen reviewed. The following medication irregularities or issues were identified: NA Date Date of Note: 05/15/25 Documented by User: Dr. Eh Huddleston MD 05/15/25 10:14 TCU RX Drug Regimen Review Provider Comments Provider responsibility Provider Comments to Recommendations by Pharmacy Agree 05/15/25 1011 Vincent Wesley Signature (if applicable): 05/15/25 1014 CC: ~ Signed [facility]07-18-2025 [facility]07-18-2025 Discharge summary Author Manny Murdock [facility] Note Date/Time May 14, 2025 12:1 2pm [facility] Medical Records Department [address] [place] [address] Transfer to [facility] MR#: [id number] Acct: [id number] Name: GOGO WARE p #:[id number] : 1940 85 From: Manny Millard PCP: Dr. Eh Huddleston MD Status:ADM I N Certification of patient admission REQUIRED AT TIME OF ADMISSION. I CERTIFY THAT POST-HOSPITAL ECF SERVICES ARE REQUIRED TO BE GIVEN ON AN IN-PATIENT BASIS BECAUSE OF THE ABOVE NAMED PATIENT'S NEED FOR FPC CARE ON A CONTINUING BASIS FOR THE CONDITION(S) FOR WHICH HE/SHE WAS RECEIVING IN-PATIENT HOSPITAL SERVICES PRIOR TO HIS/HER TRANSFER TO THE F. 05/14/25 1212<Electronically signed by Manny Murdock MD> Diet Diet Order/Speech Therapy: INPATIENT Hospital Diet / Speech Therapy Order(s) 05/11/25 15:25 Diet: Cardiac - Heart Healthy Food consistency:: Regular Liquid Consistency:: Regular/Thin Type of Dietary Supplement:: Ensure Plus High Protein Diet Comments: 240mL ensure plus HP w/ breakfast tray Routine Orders/Code Status Suppository Type: Dulcolax 10mg Suppository Frequency: Daily PRN DC O2, CPAP, BIPAP needs Home O2 Discharge instructions: No Wound(s) LEFT HIP: Wound Type: Surgical Incision Therapies Extremity Affected:: Bilateral Lower Physical Therapy: Eval and Treat Occupational Therapy: Eval and Treat Speech Therapy: Eval and Treat Problem/Diagnosis (1) Femoral distal fracture: Status: Acute Code(s): S72.409A - Unspecified fracture of lower end of unspecified femur, initial encounter for closed fracture Plan Patient was admitted with distal left femur fracture and underwent ORIF on 05/10/2025. Later on stroke alert was called for patient having slurred speech and encephalopathy therefore transferred from [facility] to PCU. 1. Left distal femur fracture secondary to osteoporosis- 05/12: Patient had left distal femoral shaft spiral fracture for which she had ORIF. PT OT to continue. #2. Acute stroke suspected embolic with numerous scattered in bilateral cerebral and cerebellar hemispheres: Etiology cryptogenic. Patient had MRI which was reviewed by the neurologist and reported numerous scattered small fociof acute infarct throughout the bilateral cerebral and cerebellar hemispheres asdescribed, presumably embolic. Chronic moderate-advanced chronic small-vessel ischemic changes, with several foci of chronic lacunar infarct mainly involving the left cerebral periventricular white matter. Patient was evaluated by neurologist. Continue baby aspirin and Eliquis. On high intensity statin. Neurologist recommended 30-day event monitor. Follow-up with neurology as an outpatient. 2D echo left atrium mildly enlarged prominent eustachian valve. Mild TR PASP 52 mmHg. Stable appearing bioprosthetic aortic valve/TAVR. Mean AV gradient 24 mmHg. Earlier echo reported intact atrial septum in June [address] Abraham Sheppard CTA no flow-limiting stenosis or LVO. 05/13: Workup is complete. Pending pre-CERT. Patient on baby aspirin, Plavix and atorvastatin.Hemoglobin A1c 5.5, Triglycerides 133, Cholesterol 122, LDL Cholesterol, Calc 61, VLDL Cholesterol 27, HDL Cholesterol 34 L, TSH 2.480 3. History of valvular heart disease with recent TAVR-patient appears medicallystable 4. Coronary artery disease-patient appears medically stable at this time, I will hold her Plavix for now #4 essential hypertension-patient will remain on her current medications #5 chronic use of anticoagulant-patient is on Eliquis #6 glaucoma-patient will remain on her eyedrops #7 acute anemia secondary to left distal femur fracture-patient's hemoglobin this morning was 6.3, patient will receive 2 units of packed red blood cells, CBC will be repeated tomorrow 05/12, repeat hemoglobin 8.3/24%. Platelet count 1 29K. #8 transient episode of slurred speech-etiology unclear, will have an MRI of thebrain performed today #9 leukocytosis-etiology unclear, patient's white blood cell count today was normal, Leukocytosis has resolved. Patient is not on antibiotic, discontinued earlier. #10 encephalopathy probably due to embolic stroke as mentioned above: Encephalopathy has resolved. Microbiology Past 72 Hours 05/10/25 18:33 Blood Culture (Wb) - Anticubital Right Blood Culture - Preliminary No growth in 48 hours. Laboratory Results 05/12/25 23:58: POC Glucose 124 H 05/13/25 05:30: WBC 7.9, RBC 2.91 L, Hgb 8.8 L, Hct 26.3 L, MCV 90.4, MCH 30.2, MCHC 33.5, RDW Std Deviation 48.9 H, RDW Coeff of Alex 14.8 H, Plt Count 149 L, MPV 9.6, Immature Gran % (Auto) 0.600, Neut % (Auto) 70.8 H, Lymph % (Auto) 14.8L, Stanly % (Auto) 11.2 H, Eos % (Auto) 2.3, Baso % (Auto) 0.3, Absolute Neuts (auto) 5.6, Absolute Lymphs (auto) 1.16, Nucleated RBC % 0, Hemoglobin A1c 5.5, Triglycerides 133, Cholesterol 122, LDL Cholesterol, Calc 61, VLDL Cholesterol 27, HDL Cholesterol 34 L, Cholesterol/HDL Ratio 3.58, TSH 2.480 05/13/25 06:28: POC Glucose 119 H Laboratory Results 05/11/25 10:15: Blood Type AB POSITIVE, Antibody Screen NEGATIVE, Crossmatch SeeDetail 05/12/25 11:29: WBC 7.3, RBC 2.74 L, Hgb 8.3 L, Hct 24.6 L, MCV 89.8, MCH 30.3, MCHC 33.7, RDW Std Deviation 48.1 H, RDW Coeff of Alex 14.8 H, Plt Count 129 L, MPV 10.1, Immature Gran % (Auto) 0.700, Neut % (Auto) 76.4 H, Lymph % (Auto) 10.7 L, Stanly % (Auto) 10.9 H, Eos % (Auto) 1.2, Baso % (Auto) 0.1, Absolute Neuts (auto) 5.5, Absolute Lymphs (auto) 0.78 L, Nucleated RBC % 0, Sodium 137, Potassium 4.0, Chloride 109 H, Carbon Dioxide 19.5 L, Anion Gap 8, BUN 23 H, Creatinine 0.68 L, Estim Creat Clear Calc 51.35, Est GFR (MDRD) Non-Af 85, BUN/Creatinine Ratio 34.0 H, Glucose 168 H, Calcium 7.8 Clinical Impression(s) from Imaging Studies Pelvis X-Ray 05/07/25 07:21 IMPRESSION: A spiral FRACTURE of the distal left femoral shaft is seen, with some override also present. No intra-articular extension is clearly evident. 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 In visualized areas, no evidence of prosthesis loosening or metallic fracture is seen. Vascular stent is seen overlying the right femoral neck. Mild sacroiliac joint degenerative changes are noted. Prominent degenerative changes of the visualized lower lumbar spine are seen. [id number] degenerative changes of the visualized portions of the left knee. Reading Location: [id number] Femur X-Ray 05/07/25 07:24 IMPRESSION: A spiral FRACTURE of the distal left femoral shaft is seen, with some override also present. No intra-articular extension is clearly evident. 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 In visualized areas, no evidence of prosthesis loosening or metallic fracture is seen. Vascular stent is seen overlying the right femoral neck. Mild sacroiliac joint degenerative changes are noted. Prominent degenerative changes of the visualized lower lumbar spine are seen. [id number] degenerative changes of the visualized portions of the left knee. Reading Location: [id number] Femur X-Ray 05/09/25 08:00 IMPRESSION: Anatomic alignment Reading Location: [facility] Brain CT 05/10/25 09:24 IMPRESSION: CHRONIC CHANGES. NO ACUTE FINDINGS. Reading Location: [facility] Head/Neck CTA 05/10/25 09:35 IMPRESSION: Atherosclerotic calcific plaques at the origin of the right and left internal carotid arteries as described. Red Alert: Nothing acute The critical information above was relayed directly by me by telephone to Sourav Casiano on 05/10/2025 at 9:55 am with readback verification. Reading Location: [facility] Brain MRI 05/11/25 12:05 IMPRESSION: 1. Numerous scattered small foci of acute infarct throughout the bilateral cerebral and cerebellar hemispheres as described, presumably embolic. 2. Background of moderate-advanced chronic small-vessel ischemic changes, with several foci of chronic lacunar infarct mainly involving the left cerebral periventricular white matter. 3. No intracranial hemorrhage, extra-axial collection, or mass-effect. Echocardiogram 05/11/25 19:18 Interpretation Summary The estimated ejection fraction is 65 %. Stage 2 diastolic dysfunction. The left atrium is mildly enlarged. Stable appearing bioprosthetic aortic valve apparatus. Mean peak gradient 24 mmHg. Mild (1+) tricuspid valve insufficiency. Pulmonary artery systolic pressure is 52 mmHg. Contrast injection was performed. Ordering Physician: Sourav Casiano Performed By: José Manuel Siddiqui and Student Allergies/Procedures Done in Hospital Allergies No Known Allergies Allergy (Verified 03/16/24 14:09) Type of Care/Length of Stay Estimated LOS: Convalescent Care Less Than 30 days Type of Care Needed: Skilled Rehab Potential: Good Prognosis: Good Additional Orders/Day of Discharge Day of Discharge: 05/14/25 Dietary and Speech Recommendations Dietitian Recommendations/Changes: Continue Cardiac diet to manage medical conditions. Continue 240mL ensure plus HP w/ breakfast tray. Liberalize diet as needed if PO regresses at meals. Discharge Plan Admission Admit Date/Time: 05/07/25 13:32 Primary Reason for Your Visit: Left hip fracture, bilateral embolic stroke Attending Provider: Manny Murdock Primary Care Provider: Eh Huddleston [employer] Providers: Sourav Casiano; Santhosh Livingston; Nathan Heredia; Des iLnk; Georgina Sosa; Sondra Lira; Elva Maxwell; Seng Daniel; Deann Santana; Piero Richard; Marco Zafar; Armin Street; Melissa Quinonez; Malachi Charles; Kayla Perez; Maikel Arreaga; Maria Guadalupe Rocha; Domenic Blanco; Mp Petersen; Yordan Alfaro; Yolanda Arriola; Benjamín Trinidad Discharge Orders/Prescriptions Prescriptions: New atorvastatin 40 mg Tablet 40 mg PO QHS Qty: 0 0RF sennosides-docusate sodium [Stimulant Laxative Plus] 8.6-50 mg Tablet 2 tab PO BID Qty: 0 0RF pantoprazole 40 mg Tablet,Delayed Release (Dr/Ec) 40 mg PO DAILY Qty: 0 0RF losartan 25 mg Tablet 25 mg PO DAILY Qty: 0 0RF Rx Instructions: Hold for SBP less than 120 mmHg oxycodone 5 mg Tablet 2.5 - 5 mg PO Q4H PRN PRN (Reason: Pain Score 4-10) Qty: 0 0RF Rx Instructions: Oxycodone 2.5 mg for moderate pain and 5 mg for severe pain respectively. acetaminophen [Acetaminophen Pain Relief] 500 mg tablet 1,000 mg PO Q8H 30 Days Qty: 180 0RF Rx Instructions: 1 g, 3 times daily for 1 week and then 1 g Q8 hourly as needed for moderate to severe pain Continued latanoprost 0.005 % drops 1 drp OPHTHALMIC QPM brimonidine 1 DROP bottle 2 drp EACH EYE BID dorzolamide-timolol 10 ML drops 1 drp EACH EYE BID Patient Comments: clopidogrel 75 mg tablet 75 mg PO DAILY Eliquis 5 mg tablet 5 mg PO BID temazepam 30 mg capsule 30 mg PO DAILY carvedilol 12.5 mg tablet 12.5 mg PO BID Qty: 180 4RF Discontinued valsartan 160 mg tablet 80 mg PO DAILY Referrals / Follow Up: Marco Zafar MD [Med Staff - Contracted] - Santhosh Livingston DO [Med Staff - Active Staff] - Within 2 Weeks Natan Melendez MD [Non-Staff -Ordering Privileges] - Within 1 Month (FOR EMBOLIC STROKE) Eh Huddleston Chi, MD [Primary Care Provider] - Disposition Disposition (needs filled in before D/C Order can be placed): [facility] (1) Femoral distal fracture Qualifiers: Encounter type: initial encounter Fracture type: closed Laterality: left 05/14/25 1212 <Electronically signed by Manny Murdock MD> Cosigner Signature (if applicable): CC: Sondra Lira; Kayla Perez; Domenic Blanco; Elva Maxwell MD; Georgina Sosa MD; Nathan Heredia MD; Dr. Des Link MD; Dr. Seng Daniel MD; Dr. Florina MD; Dr. Marco Zafar MD; Dr. Piero Richard MD; Dr. Armin Street MD; Dr. Sourav Casiano DO; Dr. Malachi Charles DO; Dr. Maria Guadalupe Rocha MD; Dr. Maikel Arreaga MD; Dr. Santhosh Livingston DO; Dr. Mp Petersen MD; Dr. Yordan Alfaro MD; Dr. Eh Huddleston MD; Dr. Yolanda Arriola MD; Melissa Quinonez DO; Benjamín Trinidad MD ~ [facility] Work Phone: [phone]) 149-325907-18-2025 Hospital Discharge instructionsAdditional Instructions Date of Discharge: 05/14/25[facility] Work Phone: 1(183) 710-185907-18-2025 Discharge summary [facility] Medical Records Department [address] [place] [address] Discharge Summary 05/14/25 1237 MR#: [id number] Acct: [id number] Name: GOGO WARE Heidi p #:[id number] : 1940 85 From: Manny Millard PCP: Dr. Eh Huddleston MD Status:ADM I N Location: [place] [address] Providers Date of Admission: 05/07/25 Date of Discharge: 05/14/25 Primary Care Physician: Dr. Eh Huddleston MD Consultations 05/07/25 15:28 Consult: Orthopedics Routine Consulting Provider: Santhosh Livingston Reason for Consult: Left femur fracture EMERGENT Consult: No MD Notified: Yes Date Notified: 05/07/25 Time Notified: 13:42 Method of Notification: Verbal 05/11/25 19:18 Consult: Tele-Neurology Routine Consulting Provider: [facility] Reason for Consult: Embolic strokes EMERGENT Consult: No MD Notified: Yes Date Notified: 05/11/25 Time Notified: 23:45 Method of Notification: Answering Service Comments:: Patient on Eliquis Nursing Unit Staff Notify [facility] of Tele-Neurology Consult: Yes Reason For Visit: DISTAL LEFT FEMUR FRACTURE Diagnosis Discharge Diagnosis (1) Femoral distal fracture: Status: Acute Code(s): S72.409A - Unspecified fracture of lower end of unspecified femur, initial encounter for closed fracture Qualifiers: Encounter type: initial encounter Fracture type: closed Laterality: left Plan Patient was admitted with distal left femur fracture and underwent ORIF on 05/10/2025. Later on stroke alert was called for patient having slurred speech and encephalopathy therefore transferred from [facility] to PCU. 1. Left distal femur fracture secondary to osteoporosis- 05/12: Patient had left distal femoral shaft spiral fracture for which she had ORIF. PT OT to continue. 05/14: Dressing is dry but mild dry stain. Follow-up with orthopedic surgeon, Dr. Livingston within 2 weeks #2. Acute stroke suspected embolic with numerous scattered in bilateral cerebral and cerebellar hemispheres: Etiology cryptogenic. Patient had MRI which was reviewed by the neurologist and reported numerous scattered small fociof acute infarct throughout the bilateral cerebral and cerebellar hemispheres asdescribed, presumably embolic. Chronic moderate-advanced chronic small-vessel ischemic changes, with several foci of chronic lacunar infarct mainly involving the left cerebral periventricular white matter. Patient was evaluated by neurologist. Continue baby aspirin and Eliquis. On high intensity statin. Neurologist recommended 30-day event monitor. Follow-up with neurology as an outpatient. 2D echo left atrium mildly enlarged prominent eustachian valve. Mild TR PASP 52 mmHg. Stable appearing bioprosthetic aortic valve/TAVR. Mean AV gradient 24 mmHg. Earlier echo reported intact atrial septum in June [address] Abraham Sheppard CTA no flow-limiting stenosis or LVO. 05/13: Workup is complete. Pending pre-CERT. Patient on baby aspirin, Plavix and atorvastatin.Hemoglobin A1c 5.5, Triglycerides 133, Cholesterol 122, LDL Cholesterol, Calc 61, VLDL Cholesterol 27, HDLCholesterol 34 L, TSH 2.480. Diabetes ruled out. 05/14: Patient is going to be transferred to TCU for rehab 3. History of valvular heart disease with recent TAVR-patient appears medicallystable 4. Coronary artery disease-patient appears medically stable at this time, I will hold her Plavix for now #4 essential hypertension-patient will remain on her current medications #5 chronic use of anticoagulant-patient is on Eliquis #6 glaucoma-patient will remain on her eyedrops #7 acute anemia secondary to left distal femur fracture-patient's hemoglobin this morning was 6.3, patient will receive 2 units of packed red blood cells, CBC will be repeated tomorrow 05/12, repeat hemoglobin 8.3/24%. Platelet count 129K. 05/14: H&H improved to 9.5/28%. On PPI. Patient denied any upper or lower GI bleed. #8 transient episode of slurred speech-etiology unclear, will have an MRI of thebrain performed today #9 leukocytosis-etiology unclear, patient's white blood cell count today was normal, Leukocytosis has resolved. Patient is not on antibiotic, discontinued earlier. #10 encephalopathy probably due to embolic stroke as mentioned above: Encephalopathy has resolved. Discharge medication reconciliation done. Discharge follow-up instructions completed. Discharge process discussed with the patient and all questions wereanswered to patient's satisfaction. Follow with PCP in 1 to 2 weeks Total time spent, exact 35 minutes on discharge meds reconciliation, examination, coordination of care with nurses and ancillary staff, review of imaging and blood test and discussion with the patient on follow-up instructions. Clinical Impression(s) from Imaging Studies Pelvis X-Ray 05/07/25 07:21 IMPRESSION: A spiral FRACTURE of the distal left femoral shaft is seen, with some override also present. No intra-articular extension is clearly evident. 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 In visualized areas, no evidence of prosthesis loosening or metallic fracture is seen. Vascular stent is seen overlying the right femoral neck. Mild sacroiliac joint degenerative changes are noted. Prominent degenerative changes of the visualized lower lumbar spine are seen. [id number] degenerative changes of the visualized portions of the left knee. Reading Location: [id number] Femur X-Ray 05/07/25 07:24 IMPRESSION: A spiral FRACTURE of the distal left femoral shaft is seen, with some override also present. No intra-articular extension is clearly evident. 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 In visualized areas, no evidence of prosthesis loosening or metallic fracture is seen. Vascular stent is seen overlying the right femoral neck. Mild sacroiliac joint degenerative changes are noted. Prominent degenerative changes of the visualized lower lumbar spine are seen. [id number] degenerative changes of the visualized portions of the left knee. Reading Location: [id number] Femur X-Ray 05/09/25 08:00 IMPRESSION: Anatomic alignment [facility] 05/10/25 09:24 IMPRESSION: CHRONIC CHANGES. NO ACUTE FINDINGS. Reading Location: [facility] Head/Neck CTA 05/10/25 09:35 IMPRESSION: Atherosclerotic calcific plaques at the origin of the right and left internal carotid arteries as described. Red Alert: Nothing acute The critical information above was relayed directly by me by telephone to Sourav Casiano on 05/10/2025 at 9:55 am with readback verification. Reading Location: [facility] Brain MRI 05/11/25 12:05 IMPRESSION: 1. Numerous scattered small foci of acute infarct throughout the bilateral cerebral and cerebellar hemispheres as described, presumably embolic. 2. Background of moderate-advanced chronic small-vessel ischemic changes, with several foci of chronic lacunar infarct mainly involving the left cerebral periventricular white matter. 3. No intracranial hemorrhage, extra-axial collection, or mass-effect. Echocardiogram 05/11/25 19:18 Interpretation Summary The estimated ejection fraction is 65 %. Stage 2 diastolic dysfunction. The left atrium is mildly enlarged. Stable appearing bioprosthetic aortic valve apparatus. Mean peak gradient 24 mmHg. Mild (1+) tricuspid valve insufficiency. Pulmonary artery systolic pressure is 52 mmHg. Contrast injection was performed. Ordering Physician: Sourav Casiano Performed By: José Manuel Siddiqui and Student Medications at Discharge Home Medications brimonidine 0.2 % eye drops 2 drp EACH EYE BID glaucoma 11/25/17 dorzolamide 22.3 mg-timolol 6.8 mg/mL eye drops 1 drp EACH EYE BID glaucoma 11/25/17 latanoprost 0.005 % eye drops 1 drp ophthalmic (eye) QPM 12/17/19 carvedilol 12.5 mg tablet 12.5 mg PO BID #180 tabs 11/03/24 apixaban 5 mg tablet (Eliquis) 5 mg PO BID 05/07/25 clopidogrel 75 mg tablet 75 mg PO DAILY 05/07/25 temazepam 30 mg capsule 30 mg PO DAILY 05/07/25 acetaminophen 500 mg tablet (Acetaminophen Pain Relief) 1,000 mg (2 x 500 mg) POQ8H Pain 1-10 Or Fever >100.7 30 days #180 tabs 05/14/25 atorvastatin 40 mg tablet 40 mg PO QHS #0 tabs 05/14/25 losartan 25 mg tablet 25 mg PO DAILY #0 tabs 05/14/25 oxycodone 5 mg tablet 2.5 - 5 mg (0.5 - 1 x 5 mg) PO Q4H PRN PRN Pain Score 4- 10#0 tabs 05/14/25 pantoprazole 40 mg tablet,delayed release 40 mg PO DAILY #0 tabs 05/14/25 sennosides 8.6 mg-docusate sodium 50 mg tablet (Stimulant Laxative Plus) 2 tab PO BID #0 tabs 05/14/25 Physical Exam Narrative Seen and examined Patient complain of mild heaviness in the leg. Otherwise no acute issues. Patient has slow speech and slurred, mild echolalia. Chronic left-sided facial droop. Found to havea small stroke suspected embolic stroke on MRI. Physical exam General: Alert, Oriented x3, Cooperative. BMI 27.3 kg/m? HEENT: Atraumatic, PERRLA, EOMI, Normocephalic. Oral: No Gingival or Mucosal Lesions/ Ulcerations Neck: Supple, No JVD, Negative Carotid Bruits Chest wall/Lungs: Air entry equal in bilateral lung bases. No crepitation/rhonchi Cardiovascular: Regular rate and rhythm, Normal S1,S2, No M/G/R Abdomen: Bowel Sounds Present, Soft, Non Tender, Non-Distended : No dysuria. No renal angle tenderness. No suprapubic tenderness. Extremities: No edema, Capillary Refill Less than 3 Seconds Skin: Surgical dressing over left hip is dry Musculoskeletal: No Tenderness to Palpation of Joints or Extremities. Muscle strength 4/5 at left leg at hip joint with recent surgery. Right leg also weak,4/5 Neurological: Cranial nerves II-XII grossly intact, DTR 2+/4. Mild slurring speech. Psych/Mental Status: Flat affect Weight / BMI Weight Weight: 166 lb 10.711 oz Body Mass Index (BMI) 27.3 ABG / Lab / Microbiology Data 05/14/25 06:00 05/12/25 11:29 Laboratory: Laboratory Results - last 24 hr 05/13/25 13:08: POC Glucose 131 H 05/13/25 16:51: POC Glucose 141 H 05/14/25 06:00: WBC 7.5, RBC 3.11 L, Hgb 9.5 L, Hct 28.0 L, MCV 90.0, MCH 30.5, MCHC 33.9, RDW Std Deviation 47.7 H, RDW Coeff of Alex 14.6, Plt Count 186, MPV 9.7, Immature Gran % (Auto) 0.900, Neut % (Auto) 67.5, Lymph % (Auto) 18.1 L, Stanly % (Auto) 10.3 H, Eos % (Auto) 2.9, Baso % (Auto) 0.3, Absolute Neuts (auto) 5.1, Absolute Lymphs (auto) 1.36, Nucleated RBC % 0 Microbiology: Microbiology 05/10/25 18:33 Blood Culture (Wb) - Anticubital Right Blood Culture - Preliminary No growth in 48 hours. D/C Instructions DC O2, CPAP, BIPAP Needs Home O2 Discharge instructions: No Meaningful Use Info Meaningful Use Meaningful Use Diagnoses (Choose all that apply): Ischemic CVA CVA Therapy Assessed for PT,OT and/or ST?: Yes Ischemic Stroke Antithrombotic order at d/c?: Yes Dx of Atrial fib/flutter?: No Statins at discharge?: Yes Primary Dx Acute Ischemic CVA?: Yes Discharge Plan Admission Admit Date/Time: 05/07/25 13:32 Primary Reason for Your Visit: Left hip fracture, bilateral embolic stroke Attending Provider: Manny Murdock Primary Care Provider: Eh Huddleston Chi Consult[employer] Providers: Sourav Casiano; Santhosh Livingston; Nathan Heredia; Des Link; Georgina Sosa; Sondra Lira; Elva Maxwell; Seng Daniel; Deann Santana; Piero Richard; Marco Zafar; Armin Street; Melissa Quinonez; Malachi Charles; Kayla Perez; Maikel Arreaga; Maria Guadalupe Rocha; Domenic Blanco; Mp Petersen; Yordan Alfaro; Yolanda Arriola; Benjamín Trinidad Discharge Orders/Prescriptions Prescriptions: New atorvastatin 40 mg Tablet 40 mg PO QHS Qty: 0 0RF sennosides-docusate sodium [Stimulant Laxative Plus] 8.6-50 mg Tablet 2 tab PO BID Qty: 0 0RF pantoprazole 40 mg Tablet,Delayed Release (Dr/Ec) 40 mg PO DAILY Qty: 0 0RF losartan 25 mg Tablet 25 mg PO DAILY Qty: 0 0RF Rx Instructions: Hold for SBP less than 120 mmHg oxycodone 5 mg Tablet 2.5 - 5 mg PO Q4H PRN PRN (Reason: Pain Score 4-10) Qty: 0 0RF Rx Instructions: Oxycodone 2.5 mg for moderate pain and 5 mg for severe pain respectively. acetaminophen [Acetaminophen Pain Relief] 500 mg tablet 1,000 mg PO Q8H 30 Days Qty: 180 0RF Rx Instructions: 1 g, 3 times daily for 1 week and then 1 g Q8 hourly as needed for moderate to severe pain Continued latanoprost 0.005 % drops 1 drp OPHTHALMIC QPM brimonidine 1 DROP bottle 2 drp EACH EYE BID dorzolamide-timolol 10 ML drops 1 drp EACH EYE BID Patient Comments: clopidogrel 75 mg tablet 75 mg PO DAILY Eliquis 5 mg tablet 5 mg PO BID temazepam 30 mg capsule 30 mg PO DAILY carvedilol 12.5 mg tablet 12.5 mg PO BID Qty: 180 4RF Discontinued valsartan 160 mg tablet 80 mg PO DAILY Other Ambulatory Orders: 30 Day Event Recorder Preventi (Urgent) Timeframe: 1 Day Facility: [facility] - Location: Cardiovascular Services Ordered By: Dr. Manny Murdock Referrals / Follow Up: Marco Zafar MD [Med Staff - Contracted] - Santhosh Livingston DO [Med Staff - Active Staff] - Within 2 Weeks Natan Melendez MD [Non-Staff -Ordering Privileges] - Within 1 Month (FOR EMBOLIC STROKE) Eh Huddleston Chi, MD [Primary Care Provider] - Disposition Disposition (needs filled in before D/C Order can be placed): [facility] 05/14/25 1244 Cosigner Signature (if applicable): CC: Dr. Manny Murdock MD; Dr. Eh Huddleston MD~ Signed [facility]18[facility] Dis[facility] summary [facility] Medical Records Department [address] [place] [address] Transfer to Extended Care MR#: [id number] Acct: [id number] Name: GOGO WARE p #:[id number] : 1940 85 From: Manny Millard PCP: Dr. Eh Huddleston MD Status:ADM I N Certification of patient admission REQUIRED AT TIME OF ADMISSION. I CERTIFY THAT POST-HOSPITAL ECF SERVICES ARE REQUIRED TO BE GIVEN ON AN IN-PATIENT BASIS BECAUSE OF THE ABOVE NAMED PATIENT'S NEED FOR FPC CARE ON A CONTINUING BASIS FOR THE CONDITION(S) FOR WHICH HE/SHE WAS RECEIVING IN-PATIENT HOSPITAL SERVICES PRIOR TO HIS/HER TRANSFER TO THE [facility]. 05/14/25 1212 Diet Diet Order/Speech Therapy: INPATIENT Hospital Diet / Speech Therapy Order(s) 05/11/25 15:25 Diet: Cardiac - Heart Healthy Food consistency:: Regular Liquid Consistency:: Regular/Thin Type of Dietary Supplement:: Ensure Plus High Protein Diet Comments: 240mL ensure plus HP w/ breakfast tray Routine Orders/Code Status Suppository Type: Dulcolax 10mg Suppository Frequency: Daily PRN DC O2, CPAP, BIPAP needs Home O2 Discharge instructions: No Wound(s) LEFT HIP: Wound Type: Surgical Incision Therapies Extremity Affected:: Bilateral Lower Physical Therapy: Eval and Treat Occupational Therapy: Eval and Treat Speech Therapy: Eval and Treat Problem/Diagnosis (1) Femoral distal fracture: Status: Acute Code(s): S72.409A - Unspecified fracture of lower end of unspecified femur, initial encounter for closed fracture Plan Patient was admitted with distal left femur fracture and underwent ORIF on 05/10/2025. Later on stroke alert was called for patient having slurred speech and encephalopathy therefore transferred from [facility] to PCU. 1. Left distal femur fracture secondary to osteoporosis- 05/12: Patient had left distal femoral shaft spiral fracture for which she had ORIF. PT OT to continue. #2. Acute stroke suspected embolic with numerous scattered in bilateral cerebral and cerebellar hemispheres: Etiology cryptogenic. Patient had MRI which was reviewed by the neurologist and reported numerous scattered small fociof acute infarct throughout the bilateral cerebral and cerebellar hemispheres asdescribed, presumably embolic. Chronic moderate-advanced chronic small-vessel ischemic changes, with several foci of chronic lacunar infarct mainly involving the left cerebral periventricular white matter. Patient was evaluated by neurologist. Continue baby aspirin and Eliquis. On high intensity statin. Neurologist recommended 30-day event monitor. Follow-up with neurology as an outpatient. 2D echo left atrium mildly enlarged prominent eustachian valve. Mild TR PASP 52 mmHg. Stable appearing bioprosthetic aortic valve/TAVR. Mean AV gradient 24 mmHg. Earlier echo reported intact atrial septum in June [address] Abraham Sheppard CTA no flow-limiting stenosis or LVO. 05/13: Workup is complete. Pending pre-CERT. Patient on baby aspirin, Plavix and atorvastatin.Hemoglobin A1c 5.5, Triglycerides 133, Cholesterol 122, LDL Cholesterol, Calc 61, VLDL Cholesterol 27, HDLCholesterol 34 L, TSH 2.480 3. History of valvular heart disease with recent TAVR-patient appears medicallystable 4. Coronary artery disease-patient appears medically stable at this time, I will hold her Plavix for now #4 essential hypertension-patient will remain on her current medications #5 chronic use of anticoagulant-patient is on Eliquis #6 glaucoma-patient will remain on her eyedrops #7 acute anemia secondary to left distal femur fracture-patient's hemoglobin this morning was 6.3, patient will receive 2 units of packed red blood cells, CBC will be repeated tomorrow 05/12, repeat hemoglobin 8.3/24%. Platelet count 1 29K. #8 transient episode of slurred speech-etiology unclear, will have an MRI of thebrain performed today #9 leukocytosis-etiology unclear, patient's white blood cell count today was normal, Leukocytosis has resolved. Patient is not on antibiotic, discontinued earlier. #10 encephalopathy probably due to embolic stroke as mentioned above: Encephalopathy has resolved. Microbiology Past 72 Hours 05/10/25 18:33 Blood Culture (Wb) - Anticubital Right Blood Culture - Preliminary No growth in 48 hours. Laboratory Results 05/12/25 23:58: POC Glucose 124 H 05/13/25 05:30: WBC 7.9, RBC 2.91 L, Hgb 8.8 L, Hct 26.3 L, MCV 90.4, MCH 30.2, MCHC 33.5, RDW Std Deviation 48.9 H, RDW Coeff of Alex 14.8 H, Plt Count 149 L, MPV 9.6, Immature Gran % (Auto) 0.600, Neut % (Auto) 70.8 H, Lymph % (Auto) 14.8L, Stanly % (Auto) 11.2 H, Eos % (Auto) 2.3, Baso % (Auto) 0.3, Absolute Neuts (auto) 5.6, Absolute Lymphs (auto) 1.16, Nucleated RBC % 0, Hemoglobin A1c 5.5, Triglycerides 133, Cholesterol 122, LDL Cholesterol, Calc 61, VLDL Cholesterol 27, HDL Cholesterol 34 L, Cholesterol/HDL Ratio 3.58, TSH 2.480 05/13/25 06:28: POC Glucose 119 H Laboratory Results 05/11/25 10:15: Blood Type AB POSITIVE, Antibody Screen NEGATIVE, Crossmatch SeeDetail 05/12/25 11:29: WBC 7.3, RBC 2.74 L, Hgb 8.3 L, Hct 24.6 L, MCV 89.8, MCH 30.3, MCHC 33.7, RDW Std Deviation 48.1 H, RDW Coeff of Alex 14.8 H, Plt Count 129 L, MPV 10.1, Immature Gran % (Auto) 0.700, Neut % (Auto) 76.4 H, Lymph % (Auto) 10.7 L, Stanly % (Auto) 10.9 H, Eos % (Auto) 1.2, Baso % (Auto) 0.1, Absolute Neuts (auto) 5.5, Absolute Lymphs (auto) 0.78 L, Nucleated RBC % 0, Sodium 137, Potassium 4.0, Chloride 109 H, Carbon Dioxide 19.5 L, Anion Gap 8, BUN 23 H, Creatinine 0.68 L, Estim CreatClear Calc 51.35, Est GFR (MDRD) Non-Af 85, BUN/Creatinine Ratio 34.0 H, Glucose 168 H, Calcium 7.8 Clinical Impression(s) from Imaging Studies Pelvis X-Ray 05/07/25 07:21 IMPRESSION: A spiral FRACTURE of the distal left femoral shaft is seen, with some override also present. No intra-articular extension is clearly evident. 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 In visualized areas, no evidence of prosthesis loosening or metallic fracture is seen. Vascular stent is seen overlying the right femoral neck. Mild sacroiliac joint degenerative changes are noted. Prominent degenerative changes of the visualized lower lumbar spine are seen. Adul-ck-ryzzpchh degenerative changes of the visualized portions of the left knee. Reading Location: [id number] Femur X-Ray 05/07/25 07:24 IMPRESSION: A spiral FRACTURE of the distal left femoral shaft is seen, with some override also present. No intra-articular extension is clearly evident. 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 In visualized areas, no evidence of prosthesis loosening or metallic fracture is seen. Vascular stent is seen overlying the right femoral neck. Mild sacroiliac joint degenerative changes are noted. Prominent degenerative changes of the visualized lower lumbar spine are seen. Wafn-at-cjvtqnie degenerative changes of the visualized portions of the left knee. Reading Location: [id number] Femur X-Ray 05/09/25 08:00 IMPRESSION: Anatomic alignment [facility] 05/10/25 09:24 IMPRESSION: CHRONIC CHANGES. NO ACUTE FINDINGS. Reading Location: [facility] Head/Neck CTA 05/10/25 09:35 IMPRESSION: Atherosclerotic calcific plaques at the origin of the right and left internal carotid arteries as described. Red Alert: Nothing acute The critical information above was relayed directly by me by telephone to Sourav Casiano on 05/10/2025 at 9:55 am with readback verification. Reading Location: [facility] Brain MRI 05/11/25 12:05 IMPRESSION: 1. Numerous scattered small foci of acute infarct throughout the bilateral cerebral and cerebellar hemispheres as described, presumably embolic. 2. Background of moderate-advanced chronic small-vessel ischemic changes, with several foci of chronic lacunar infarct mainly involving the left cerebral periventricular white matter. 3. No intracranial hemorrhage, extra-axial collection, or mass-effect. Echocardiogram 05/11/25 19:18 Interpretation Summary The estimated ejection fraction is 65 %. Stage 2 diastolic dysfunction. The left atrium is mildly enlarged. Stable appearing bioprosthetic aortic valve apparatus. Mean peak gradient 24 mmHg. Mild (1+) tricuspid valve insufficiency. Pulmonary artery systolic pressure is 52 mmHg. Contrast injection was performed. Ordering Physician: Sourav Casiano Performed By: José Manuel Siddiqui and Student Allergies/Procedures Done in Hospital Allergies No Known Allergies Allergy (Verified 03/16/24 14:09) Type of Care/Length of Stay Estimated LOS: Convalescent Care Less Than 30 days Type of Care Needed: Skilled Rehab Potential: Good Prognosis: Good Additional Orders/Day of Discharge Day of Discharge: 05/14/25 Dietary and Speech Recommendations Dietitian Recommendations/Changes: Continue Cardiac diet to manage medical conditions. Continue 240mL ensure plus HP w/ breakfast tray. Liberalize diet as needed if PO regresses at meals. Discharge Plan Admission Admit Date/Time: 05/07/25 13:32 Primary Reason for Your Visit: Left hip fracture, bilateral embolic stroke Attending Provider: Manny Murdock Primary Care Provider: Eh Huddleston Chi Consulting Providers: Sourav Casiano; Santhosh Livingston; Nathan Heredia; Des Link; Georgina Sosa; Sondra Lira; Elva Maxwell; Seng Daniel; Deann Santnaa; Piero Richard; Marco Zafar; Armin Street; Melissa Quinonez; Malachi Charles; Kayla Perez; Maikel Arreaga; Maria Guadalupe Rocha; Domenic Blanco; Mp Petersen; Yordan Alfaro; Yolanda Arriola; Benjamín Trinidad Discharge Orders/Prescriptions Prescriptions: New atorvastatin 40 mg Tablet 40 mg PO QHS Qty: 0 0RF sennosides-docusate sodium [Stimulant Laxative Plus] 8.6-50 mg Tablet 2 tab PO BID Qty: 0 0RF pantoprazole 40 mg Tablet,Delayed Release (Dr/Ec) 40 mg PO DAILY Qty: 0 0RF losartan 25 mg Tablet 25 mg PO DAILY Qty: 0 0RF Rx Instructions: Hold for SBP less than 120 mmHg oxycodone 5 mg Tablet 2.5 - 5 mg PO Q4H PRN PRN (Reason: Pain Score 4-10) Qty: 0 0RF Rx Instructions: Oxycodone 2.5 mg for moderate pain and 5 mg for severe pain respectively. acetaminophen [Acetaminophen Pain Relief] 500 mg tablet 1,000 mg PO Q8H 30 Days Qty: 180 0RF Rx Instructions: 1 g, 3 times daily for 1 week and then 1 g Q8 hourly as needed for moderate to severe pain Continued latanoprost 0.005 % drops 1 drp OPHTHALMIC QPM brimonidine 1 DROP bottle 2 drp EACH EYE BID dorzolamide-timolol 10 ML drops 1 drp EACH EYE BID Patient Comments: clopidogrel 75 mg tablet 75 mg PO DAILY Eliquis 5 mg tablet 5 mg PO BID temazepam 30 mg capsule 30 mg PO DAILY carvedilol 12.5 mg tablet 12.5 mg PO BID Qty: 180 4RF Discontinued valsartan 160 mg tablet 80 mg PO DAILY Referrals / Follow Up: Marco Zafar MD [Med Staff - Contracted] - Santhosh Livingston DO [Med Staff - Active Staff] - Within 2 Weeks Natan Melendez MD [Non-Staff -Ordering Privileges] - Within 1 Month (FOR EMBOLIC STROKE) hE Huddleston Chi, MD [Primary Care Provider] - Disposition Disposition (needs filled in before D/C Order can be placed): [facility] (1) Femoral distal fracture Qualifiers: Encounter type: initial encounter Fracture type: closed Laterality: left 05/14/25 1212 Cosigner Signature (if applicable): CC: Sondra Lira; Kayla Perez; Domenic Blanco; Elva Maxwell MD; Georgina Sosa MD; Nathan Heredia MD; Dr. Des Link MD; Dr. Seng Daniel MD; Dr. Florina MD; Dr. Marco Zafar MD; Dr. Piero Richard MD; Dr. Armin Street MD; Dr. Sourav Casiano DO; Dr. Malachi Charles DO; Dr. Maria Guadalupe Rocha MD; Dr. Maikel Arreaga MD; Dr. Santhosh Livingston DO; Dr. Mp Petersen MD; Dr. Yordan Alfaro MD; Dr. Eh Huddleston MD; Dr. Yolanda Arriola MD; Melissa Quinonez DO; Benjamín Trinidad MD ~ [facility]07-17-2025 Progress note Author Manny Murdock [facility] Note Date/Time May 13, 2025 4:09 pm [facility] Medical Records Department [address] [place] [address] Progress Note - Hospitalist 05/13/25 1606 MR#: [id number] Acct: [id number] Name: GOGO WARE p #:[id number] : 1940 85 From: Manny Millard PCP: Dr. Eh Huddleston MD Status:ADM I N Location: [place] [address] Reason for Visit Chief Complaint: Left leg injury, inability to ambulate Objective Data Objective Data Vital Signs: Vital Signs Temp Pulse Resp BP Pulse Ox O2 Del Method 97.2 F L 63 18 147/51 H 95 Room Air 05/13/25 13:01 05/13/25 13:01 05/13/25 13:01 05/13/25 13:01 05/13/25 14:10 05/13/25 14:10 Oxygen Delivery Method Room Air Weight: 166 lb 10.711 oz Body Mass Index (BMI) 27.3 Intake & Output: Intake and Output for Last 24 Hours 05/11/25 05/12/25 05/13/25 23:59 23:59 23:59 Intake Total 3265.00 / 3265.00 1000 / 1000 320 / 320 Output Total 1100 / 1900 1650 / 2100 1300 / 1300 Balance 2165.00 / 1365.00 -650 / -1100 -980 / -980 Lab / Micro Data 05/13/25 05:30 05/12/25 11:29 Labs: Laboratory Results - last 24 hr 05/12/25 23:58: POC Glucose 124 H 05/13/25 05:30: WBC 7.9, RBC 2.91 L, Hgb 8.8 L, Hct 26.3 L, MCV 90.4, MCH 30.2, MCHC 33.5, RDW Std Deviation 48.9 H, RDW Coeff of Alex 14.8 H, Plt Count 149 L, MPV 9.6, Immature Gran % (Auto) 0.600, Neut % (Auto) 70.8 H, Lymph % (Auto) 14.8L, Stanly % (Auto) 11.2 H, Eos % (Auto) 2.3, Baso % (Auto) 0.3, Absolute Neuts (auto) 5.6, Absolute Lymphs (auto) 1.16, Nucleated RBC % 0, Hemoglobin A1c 5.5, Triglycerides 133, Cholesterol 122, LDL Cholesterol, Calc 61, VLDL Cholesterol 27, HDL Cholesterol 34 L, Cholesterol/HDL Ratio 3.58, TSH 2.480 05/13/25 06:28: POC Glucose 119 H Micro: Microbiology 05/10/25 18:33 Blood Culture (Wb) - Anticubital Right Blood Culture - Preliminary No growth in 48 hours. Physical Exam Narrative Seen and examined No acute issues. Pre-CERT pending Patient has slow speech and slurred. Chronic left-sided facial droop. Found tohave a small stroke suspected embolic stroke on MRI. Physical exam General: Alert, Oriented x3, Cooperative. BMI 27.3 kg/m? HEENT: Atraumatic, PERRLA, EOMI, Normocephalic. Oral: No Gingival or Mucosal Lesions/ Ulcerations Neck: Supple, No JVD, Negative Carotid Bruits Chest wall/Lungs: Air entry equal in bilateral lung bases. No crepitation/rhonchi Cardiovascular: Regular rate and rhythm, Normal S1,S2, No M/G/R Abdomen: Bowel Sounds Present, Soft, Non Tender, Non-Distended : No dysuria. No renal angle tenderness. No suprapubic tenderness. Extremities: No edema, Capillary Refill Less than 3 Seconds Skin: Surgical dressing over left hip is dry Musculoskeletal: No Tenderness to Palpation of Joints or Extremities. Muscle strength 4/5 at left leg at hip joint with recent surgery. Right leg also weak,hits bed within 5 seconds NIH stroke scale 8 with mild aphasia and dysarthria. Neurological: Cranial nerves II-XII grossly intact, DTR 2+/4. Mild slurring speech. Psych/Mental Status: Flat affect Assessment & Plan Assessment/Plan (1) Femoral distal fracture: QUALIFIERS: Encounter type: initial encounter Fracture type: closed Laterality: left PLAN: Plan Patient was admitted with distal left femur fracture and underwent ORIF on 05/10/2025. Later on stroke alert was called for patient having slurred speech and encephalopathy therefore transferred from [facility] to PCU. 1. Left distal femur fracture secondary to osteoporosis- 05/12: Patient had left distal femoral shaft spiral fracture for which she had ORIF. PT OT to continue. #2. Acute stroke suspected embolic with numerous scattered in bilateral cerebral and cerebellar hemispheres: Etiology cryptogenic. Patient had MRI which was reviewed by the neurologist and reported numerous scattered small fociof acute infarct throughout the bilateral cerebral and cerebellar hemispheres asdescribed, presumably embolic. Chronic moderate-advanced chronic small-vessel ischemic changes, with several foci of chronic lacunar infarct mainly involving the left cerebral periventricular white matter. Patient was evaluated by neurologist. Continue baby aspirin and Eliquis. On high intensity statin. Neurologist recommended 30-day event monitor. Follow-up with neurology as an outpatient. 2D echo left atrium mildly enlarged prominent eustachian valve. Mild TR PASP 52 mmHg. Stable appearing bioprosthetic aortic valve/TAVR. Mean AV gradient 24 mmHg. Earlier echo reported intact atrial septum in June [address] Abraham Sheppard CTA no flow-limiting stenosis or LVO. 05/13: Workup is complete. Pending pre-CERT. Patient on baby aspirin, Plavix and atorvastatin.Hemoglobin A1c 5.5, Triglycerides 133, Cholesterol 122, LDL Cholesterol, Calc 61, VLDL Cholesterol 27, HDL Cholesterol 34 L, TSH 2.480 3. History of valvular heart disease with recent TAVR-patient appears medicallystable 4. Coronary artery disease-patient appears medically stable at this time, I will hold her Plavix for now #4 essential hypertension-patient will remain on her current medications #5 chronic use of anticoagulant-patient is on Eliquis #6 glaucoma-patient will remain on her eyedrops #7 acute anemia secondary to left distal femur fracture-patient's hemoglobin this morning was 6.3, patient will receive 2 units of packed red blood cells, CBC will be repeated tomorrow 05/12, repeat hemoglobin 8.3/24%. Platelet count 1 29K. #8 transient episode of slurred speech-etiology unclear, will have an MRI of thebrain performed today #9 leukocytosis-etiology unclear, patient's white blood cell count today was normal, Leukocytosis has resolved. Patient is not on antibiotic, discontinued earlier. #10 encephalopathy probably due to embolic stroke as mentioned above: Encephalopathy has resolved. Microbiology Past 72 Hours 05/10/25 18:33 Blood Culture (Wb) - Anticubital Right Blood Culture - Preliminary No growth in 48 hours. Laboratory Results 05/12/25 23:58: POC Glucose 124 H 05/13/25 05:30: WBC 7.9, RBC 2.91 L, Hgb 8.8 L, Hct 26.3 L, MCV 90.4, MCH 30.2, MCHC 33.5, RDW Std Deviation 48.9 H, RDW Coeff of Alex 14.8 H, Plt Count 149 L, MPV 9.6, Immature Gran % (Auto) 0.600, Neut % (Auto) 70.8 H, Lymph % (Auto) 14.8L, Stanly % (Auto) 11.2 H, Eos % (Auto) 2.3, Baso % (Auto) 0.3, Absolute Neuts (auto) 5.6, Absolute Lymphs (auto) 1.16, Nucleated RBC % 0, Hemoglobin A1c 5.5, Triglycerides 133, Cholesterol 122, LDL Cholesterol, Calc 61, VLDL Cholesterol 27, HDL Cholesterol 34 L, Cholesterol/HDL Ratio 3.58, TSH 2.480 05/13/25 06:28: POC Glucose 119 H Laboratory Results 05/11/25 10:15: Blood Type AB POSITIVE, Antibody Screen NEGATIVE, Crossmatch SeeDetail 05/12/25 11:29: WBC 7.3, RBC 2.74 L, Hgb 8.3 L, Hct 24.6 L, MCV 89.8, MCH 30.3, MCHC 33.7, RDW Std Deviation 48.1 H, RDW Coeff of Alex 14.8 H, Plt Count 129 L, MPV 10.1, Immature Gran % (Auto) 0.700, Neut % (Auto) 76.4 H, Lymph % (Auto) 10.7 L, Stanly % (Auto) 10.9 H, Eos % (Auto) 1.2, Baso % (Auto) 0.1, Absolute Neuts (auto) 5.5, Absolute Lymphs (auto) 0.78 L, Nucleated RBC % 0, Sodium 137, Potassium 4.0, Chloride 109 H, Carbon Dioxide 19.5 L, Anion Gap 8, BUN 23 H, Creatinine 0.68 L, Estim Creat Clear Calc 51.35, Est GFR (MDRD) Non-Af 85, BUN/Creatinine Ratio 34.0 H, Glucose 168 H, Calcium 7.8 Clinical Impression(s) from Imaging Studies Pelvis X-Ray 05/07/25 07:21 IMPRESSION: A spiral FRACTURE of the distal left femoral shaft is seen, with some override also present. No intra-articular extension is clearly evident. 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 In visualized areas, no evidence of prosthesis loosening or metallic fracture is seen. Vascular stent is seen overlying the right femoral neck. Mild sacroiliac joint degenerative changes are noted. Prominent degenerative changes of the visualized lower lumbar spine are seen. Rqgi-[id number]-[id number] degenerative changes of the visualized portions of the left knee. Reading Location: [id number] Femur X-Ray 05/07/25 07:24 IMPRESSION: A spiral FRACTURE of the distal left femoral shaft is seen, with some override also present. No intra-articular extension is clearly evident. 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 In visualized areas, no evidence of prosthesis loosening or metallic fracture is seen. Vascular stent is seen overlying the right femoral neck. Mild sacroiliac joint degenerative changes are noted. Prominent degenerative changes of the visualized lower lumbar spine are seen. Zqjk-[id number]-[id number] degenerative changes of the visualized portions of the left knee. Reading Location: [id number] Femur X-Ray 05/09/25 08:00 IMPRESSION: Anatomic alignment [facility] 05/10/25 09:24 IMPRESSION: CHRONIC CHANGES. NO ACUTE FINDINGS. Reading Location: [id number]-[id number] Head/Neck CTA 05/10/25 09:35 IMPRESSION: Atherosclerotic calcific plaques at the origin of the right and left internal carotid arteries as described. Red Alert: Nothing acute The critical information above was relayed directly by me by telephone to Sourav Casiano on 05/10/2025 at 9:55 am with readback verification. Reading Location: [facility]IR-1 Brain MRI 05/11/25 12:05 IMPRESSION: 1. Numerous scattered small foci of acute infarct throughout the bilateral cerebral and cerebellar hemispheres as described, presumably embolic. 2. Background of moderate-advanced chronic small-vessel ischemic changes, with several foci of chronic lacunar infarct mainly involving the left cerebral periventricular white matter. 3. No intracranial hemorrhage, extra-axial collection, or mass-effect. Echocardiogram 05/11/25 19:18 Interpretation Summary The estimated ejection fraction is 65 %. Stage 2 diastolic dysfunction. The left atrium is mildly enlarged. Stable appearing bioprosthetic aortic valve apparatus. Mean peak gradient 24 mmHg. Mild (1+) tricuspid valve insufficiency. Pulmonary artery systolic pressure is 52 mmHg. Contrast injection was performed. Ordering Physician: Sourav Casiano Performed By: José Manuel Siddiqui and Student Charges/Coding Visit Charges Inpatient E&M: 92574 Subs Hosp L2 NIHSS NIHSS Nursing Documentation NIHSS Nursing Documentation: NIHSS: Ischemic Stroke/TIA Start: 05/12/25 09:41 Freq: [id number] Status: Active Protocol: Activity Type Activity Date Activity User E-sign Co-sign Detail Recorded Client Recorded Date Recorded By Document 05/13/25 11:18 EM [id number] 05/13/25 13:00 EM 05/13/25 11:18 NIH Stroke Scale [NIHSS] A score of 0 is "normal" or asymptomatic . Total possible score is 42. Inpatient: RN or Physician to activate a stroke alert for onset of new stroke symptoms or with NIHSS increase >/= 3 points. Following change in neurological status, NIHSS will be performed per physician order or more frequently PRN. -1a. Level of Consciousness 0 - Alert; keenly responsive -1b. LOC Questions 2 - Answers NEITHER question correctly -2. Best Gaze 0 - Normal -3. Visual 0 - No visual loss -4. Facial Palsy 1 - Minor paralysis ( flattened nasolabial fold , asymmetry on smiling) -5a. Left Arm 0 - No drift; arm holds 90 ( or 45) degrees for full 10 seconds -5b. Right Arm 0 - No drift; arm holds 90 ( or 45) degrees for full 10 seconds -6a. Left Leg 3 - No effort against gravity ; leg falls to bed immediately -6b. Right Leg 0 - No drift; leg holds 30- degree position for full 5 seconds -7. Limb Ataxia 1 - Present in 1 limb -8. Sensory 0 - Normal; no sensory loss -9. Best Language 1 - Mild-to- moderate aphasia; -10. Dysarthria 1 = Mild-to- moderate dysarthria; -11. Extinction and Inattention 0 - No abnormality -Total 9 Query Text:A score of 0 is "normal" or asymptomatic. Total possible score is 42 . ED: Notify Physician for NIHSS increase by > / = 3 points. Inpatient: RN or Physician to activate a stroke alert for NIHSS increase of > / = 3 points. Coma Scale [Assess] -Eye Opening Spontaneous -Motor Obeys Commands -Verbal Confused [Total] -Coma Scale Total 14 05/13/25 1609 <Electronically signed by Manny Murdock MD> Cosigner Signature (if applicable): CC: ~ Signed [facility] Work Phone: [phone] 484-792407-17-2025 Progress note [facility] Medical Records Department [address] [place] [id number] Progress Note - Hospitalist 05/13/25 1606 MR#: [id number] Acct: [id number] Name: GOGO WARE p #:[id number] : 1940 85 From: Manny Millard PCP: Dr. Eh Huddleston MD Status:ADM I N Location: [place] [address] Reason for Visit Chief Complaint: Left leg injury, inability to ambulate Objective Data Objective Data Vital Signs: Vital Signs Temp Pulse Resp BP Pulse Ox O2 Del Method 97.2 F L 63 18 147/51 H 95 Room Air 05/13/25 13:01 05/13/25 13:01 05/13/25 13:01 05/13/25 13:01 05/13/25 14:10 05/13/25 14:10 Oxygen Delivery Method Room Air Weight: 166 lb 10.711 oz Body Mass Index (BMI) 27.3 Intake & Output: Intake and Output for Last 24 Hours 05/11/25 05/12/25 05/13/25 23:59 23:59 23:59 Intake Total 3265.00 / 3265.00 1000 / 1000 320 / 320 Output Total 1100 / 1900 1650 / 2100 1300 / 1300 Balance 2165.00 / 1365.00 -650 / -1100 -980 / -980 Lab / Micro Data 05/13/25 05:30 05/12/25 11:29 Labs: Laboratory Results - last 24 hr 05/12/25 23:58: POC Glucose 124 H 05/13/25 05:30: WBC 7.9, RBC 2.91 L, Hgb 8.8 L, Hct 26.3 L, MCV 90.4, MCH 30.2, MCHC 33.5, RDW Std Deviation 48.9 H, RDW Coeff of Alex 14.8 H, Plt Count 149 L, MPV 9.6, Immature Gran % (Auto) 0.600, Neut % (Auto) 70.8 H, Lymph % (Auto) 14.8L, Stanly % (Auto) 11.2 H, Eos % (Auto) 2.3, Baso % (Auto) 0.3, Absolute Neuts (auto) 5.6, Absolute Lymphs (auto) 1.16, Nucleated RBC % 0, Hemoglobin A1c 5.5, Triglycerides 133, Cholesterol 122, LDL Cholesterol, Calc 61, VLDL Cholesterol 27, HDL Cholesterol 34 L, Cholesterol/HDL Ratio 3.58, TSH 2.480 05/13/25 06:28: POC Glucose 119 H Micro: Microbiology 05/10/25 18:33 Blood Culture (Wb) - Anticubital Right Blood Culture - Preliminary No growth in 48 hours. Physical Exam Narrative Seen and examined No acute issues. Pre-CERT pending Patient has slow speech and slurred. Chronic left-sided facial droop. Found tohave a small stroke suspected embolic stroke on MRI. Physical exam General: Alert, Oriented x3, Cooperative. BMI 27.3 kg/m? HEENT: Atraumatic, PERRLA, EOMI, Normocephalic. Oral: No Gingival or Mucosal Lesions/ Ulcerations Neck: Supple, No JVD, Negative Carotid Bruits Chest wall/Lungs: Air entry equal in bilateral lung bases. No crepitation/rhonchi Cardiovascular: Regular rate and rhythm, Normal S1,S2, No M/G/R Abdomen: Bowel Sounds Present, Soft, Non Tender, Non-Distended : No dysuria. No renal angle tenderness. No suprapubic tenderness. Extremities: No edema, Capillary Refill Less than 3 Seconds Skin: Surgical dressing over left hip is dry Musculoskeletal: No Tenderness to Palpation of Joints or Extremities. Muscle strength 4/5 at left leg at hip joint with recent surgery. Right leg also weak,hits bed within 5 seconds NIH stroke scale 8 with mild aphasia and dysarthria. Neurological: Cranial nerves II-XII grossly intact, DTR 2+/4. Mild slurring speech. Psych/Mental Status: Flat affect Assessment & Plan Assessment/Plan (1) Femoral distal fracture: QUALIFIERS: Encounter type: initial encounter Fracture type: closed Laterality: left PLAN: Plan Patient was admitted with distal left femur fracture and underwent ORIF on 05/10/2025. Later on stroke alert was called for patient having slurred speech and encephalopathy therefore transferred from [facility] to PCU. 1. Left distal femur fracture secondary to osteoporosis- 05/12: Patient had left distal femoral shaft spiral fracture for which she had ORIF. PT OT to continue. #2. Acute stroke suspected embolic with numerous scattered in bilateral cerebral and cerebellar hemispheres: Etiology cryptogenic. Patient had MRI which was reviewed by the neurologist and reported numerous scattered small fociof acute infarct throughout the bilateral cerebral and cerebellar hemispheres asdescribed, presumably embolic. Chronic moderate-advanced chronic small-vessel ischemic changes, with several foci of chronic lacunar infarct mainly involving the left cerebral periventricular white matter. Patient was evaluated by neurologist. Continue baby aspirin and Eliquis. On high intensity statin. Neurologist recommended 30-day event monitor. Follow-up with neurology as an outpatient. 2D echo left atrium mildly enlarged prominent eustachian valve. Mild TR PASP 52 mmHg. Stable appearing bioprosthetic aortic valve/TAVR. Mean AV gradient 24 mmHg. Earlier echo reported intact atrial septum in June [address] Abraham Sheppard CTA no flow-limiting stenosis or LVO. 05/13: Workup is complete. Pending pre-CERT. Patient on baby aspirin, Plavix and atorvastatin.Hemoglobin A1c 5.5, Triglycerides 133, Cholesterol 122, LDL Cholesterol, Calc 61, VLDL Cholesterol 27, HDLCholesterol 34 L, TSH 2.480 3. History of valvular heart disease with recent TAVR-patient appears medicallystable 4. Coronary artery disease-patient appears medically stable at this time, I will hold her Plavix for now #4 essential hypertension-patient will remain on her current medications #5 chronic use of anticoagulant-patient is on Eliquis #6 glaucoma-patient will remain on her eyedrops #7 acute anemia secondary to left distal femur fracture-patient's hemoglobin this morning was 6.3, patient will receive 2 units of packed red blood cells, CBC will be repeated tomorrow 05/12, repeat hemoglobin 8.3/24%. Platelet count 1 29K. #8 transient episode of slurred speech-etiology unclear, will have an MRI of thebrain performed today #9 leukocytosis-etiology unclear, patient's white blood cell count today was normal, Leukocytosis has resolved. Patient is not on antibiotic, discontinued earlier. #10 encephalopathy probably due to embolic stroke as mentioned above: Encephalopathy has resolved. Microbiology Past 72 Hours 05/10/25 18:33 Blood Culture (Wb) - Anticubital Right Blood Culture - Preliminary No growth in 48 hours. Laboratory Results 05/12/25 23:58: POC Glucose 124 H 05/13/25 05:30: WBC 7.9, RBC 2.91 L, Hgb 8.8 L, Hct 26.3 L, MCV 90.4, MCH 30.2, MCHC 33.5, RDW Std Deviation 48.9 H, RDW Coeff of Alex 14.8 H, Plt Count 149 L, MPV 9.6, Immature Gran % (Auto) 0.600, Neut % (Auto) 70.8 H, Lymph % (Auto) 14.8L, Stanly % (Auto) 11.2 H, Eos % (Auto) 2.3, Baso % (Auto) 0.3, Absolute Neuts (auto) 5.6, Absolute Lymphs (auto) 1.16, Nucleated RBC % 0, Hemoglobin A1c 5.5, Triglycerides 133, Cholesterol 122, LDL Cholesterol, Calc 61, VLDL Cholesterol 27, HDL Cholesterol 34 L, Cholesterol/HDL Ratio 3.58, TSH 2.480 05/13/25 06:28: POC Glucose 119 H Laboratory Results 05/11/25 10:15: Blood Type AB POSITIVE, Antibody Screen NEGATIVE, Crossmatch SeeDetail 05/12/25 11:29: WBC 7.3, RBC 2.74 L, Hgb 8.3 L, Hct 24.6 L, MCV 89.8, MCH 30.3, MCHC 33.7, RDW Std Deviation 48.1 H, RDW Coeff of Alex 14.8 H, Plt Count 129 L, MPV 10.1, Immature Gran % (Auto) 0.700, Neut % (Auto) 76.4 H, Lymph % (Auto) 10.7 L, Stanly % (Auto) 10.9 H, Eos % (Auto) 1.2, Baso % (Auto) 0.1, Absolute Neuts (auto) 5.5, Absolute Lymphs (auto) 0.78 L, Nucleated RBC % 0, Sodium 137, Potassium 4.0, Chloride 109 H, Carbon Dioxide 19.5 L, Anion Gap 8, BUN 23 H, Creatinine 0.68 L, Estim CreatClear Calc 51.35, Est GFR (MDRD) Non-Af 85, BUN/Creatinine Ratio 34.0 H, Glucose 168 H, Calcium 7.8 Clinical Impression(s) from Imaging Studies Pelvis X-Ray 05/07/25 07:21 IMPRESSION: A spiral FRACTURE of the distal left femoral shaft is seen, with some override also present. No intra-articular extension is clearly evident. 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 In visualized areas, no evidence of prosthesis loosening or metallic fracture is seen. Vascular stent is seen overlying the right femoral neck. Mild sacroiliac joint degenerative changes are noted. Prominent degenerative changes of the visualized lower lumbar spine are seen. [id number]-vl-[id number] degenerative changes of the visualized portions of the left knee. Reading Location: [id number] Femur X-Ray 05/07/25 07:24 IMPRESSION: A spiral FRACTURE of the distal left femoral shaft is seen, with some override also present. No intra-articular extension is clearly evident. 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 In visualized areas, no evidence of prosthesis loosening or metallic fracture is seen. Vascular stent is seen overlying the right femoral neck. Mild sacroiliac joint degenerative changes are noted. Prominent degenerative changes of the visualized lower lumbar spine are seen. Uzfr-[id number] degenerative changes of the visualized portions of the left knee. Reading Location: [id number] Femur X-Ray 05/09/25 08:00 IMPRESSION: Anatomic alignment Reading Location: [id number] Brain CT 05/10/25 09:24 IMPRESSION: CHRONIC CHANGES. NO ACUTE FINDINGS. Reading Location: [facility]-IR-1 Head/Neck CTA 05/10/25 09:35 IMPRESSION: Atherosclerotic calcific plaques at the origin of the right and left internal carotid arteries as described. Red Alert: Nothing acute The critical information above was relayed directly by me by telephone to Sourav Casiano on 05/10/2025 at 9:55 am with readback verification. Reading Location: [facility]-IR-1 Brain MRI 05/11/25 12:05 IMPRESSION: 1. Numerous scattered small foci of acute infarct throughout the bilateral cerebral and cerebellar hemispheres as described, presumably embolic. 2. Background of moderate-advanced chronic small-vessel ischemic changes, with several foci of chronic lacunar infarct mainly involving the left cerebral periventricular white matter. 3. No intracranial hemorrhage, extra-axial collection, or mass-effect. Echocardiogram 05/11/25 19:18 Interpretation Summary The estimated ejection fraction is 65 %. Stage 2 diastolic dysfunction. The left atrium is mildly enlarged. Stable appearing bioprosthetic aortic valve apparatus. Mean peak gradient 24 mmHg. Mild (1+) tricuspid valve insufficiency. Pulmonary artery systolic pressure is 52 mmHg. Contrast injection was performed. Ordering Physician: Sourav Casiano Performed By: José Manuel Siddiqui and Student Charges/Coding Visit Charges Inpatient E&M: 61229 Subs Hosp L2 NIHSS NIHSS Nursing Documentation NIHSS Nursing Documentation: NIHSS: Ischemic Stroke/TIA Start: 05/12/25 09:41 Freq: [id number] Status: Active Protocol: Activity Type Activity Date Activity User E-sign Co-sign Detail Recorded Client Recorded Date Recorded By Document 05/13/25 11:18 EM [id number] 05/13/25 13:00 EM 05/13/25 11:18 NIH Stroke Scale [NIHSS] A score of 0 is "normal" or asymptomatic . Total possible score is 42. Inpatient: RN or Physician to activate a stroke alert for onset of new stroke symptoms or with NIHSS increase >/= 3 points. Following change in neurological status, NIHSS will be performed per physician order or more frequently PRN. -1a. Level of Consciousness 0 - Alert; keenly responsive -1b. LOC Questions 2 - Answers NEITHER question correctly -2. Best Gaze 0 - Normal -3. Visual 0 - No visual loss -4. Facial Palsy 1 - Minor paralysis ( flattened nasolabial fold , asymmetry on smiling) -5a. Left Arm 0 - No drift; arm holds 90 ( or 45) degrees for full 10 seconds -5b. Right Arm 0 - No drift; arm holds 90 ( or 45) degrees for full 10 seconds -6a. Left Leg 3 - No effort against gravity ; leg falls to bed immediately -6b. Right Leg 0 - No drift; leg holds 30- degree position for full 5 seconds -7. Limb Ataxia 1 - Present in 1 limb -8. Sensory 0 - Normal; no sensory loss -9. Best Language 1 - Mild-to- moderate aphasia; -10. Dysarthria 1 = Mild-to- moderate dysarthria; -11. Extinction and Inattention 0 - No abnormality -Total 9 Query Text:A score of 0 is "normal" or asymptomatic. Total possible score is 42 . ED: Notify Physician for NIHSS increase by > / = 3 points. Inpatient: RN or Physician to activate a stroke alert for NIHSS increase of > / = 3 points. Coma Scale [Assess] -Eye Opening Spontaneous -Motor Obeys Commands -Verbal Confused [Total] -Coma Scale Total 14 05/13/25 1609 Cosigner Signature (if applicable): CC: ~ Signed [facility]07-17-2025 Progress note Author Deann Santana [facility] Note Date/Time May 13, 2025 11:0 8am [facility] Medical Records Department [address] [place] [address] Progress Note - Neurology 05/13/25 1106 MR#: [id number] Acct: [id number] Name: GOGO WARE p #:[id number] : 1940 85 From: Deann Santana MD PCP: Dr. Eh Huddleston MD Status:ADM I N Location: [place] [address] Objective Data Objective Data Vital Signs: Vital Signs Temp Pulse Resp BP Pulse Ox O2 Del Method 97.2 F L 73 17 177/70 H 100 Room Air 05/13/25 09:10 05/13/25 09:10 05/13/25 09:10 05/13/25 09:10 05/13/25 09:10 05/13/25 09:10 Oxygen Delivery Method Room Air Weight: 75.6 kg Body Mass Index (BMI) 27.3 Intake & Output: Intake and Output for Last 24 Hours 05/11/25 05/12/25 05/13/25 23:59 23:59 23:59 Intake Total 3265.00 / 3265.00 1000 / 1000 Output Total 1100 / 1900 1650 / 2100 850 / 850 Balance 2165.00 / 1365.00 -650 / -1100 -850 / -850 Lab / Micro Data 05/13/25 05:30 05/12/25 11:29 Labs: Laboratory Results - last 24 hr 05/12/25 11:29: WBC 7.3, RBC 2.74 L, Hgb 8.3 L, Hct 24.6 L, MCV 89.8, MCH 30.3, MCHC 33.7, RDW Std Deviation 48.1 H, RDW Coeff of Alex 14.8 H, Plt Count 129 L, MPV 10.1, Immature Gran % (Auto) 0.700, Neut % (Auto) 76.4 H, Lymph % (Auto) 10.7 L, Stanly % (Auto) 10.9 H, Eos % (Auto) 1.2, Baso % (Auto) 0.1, Absolute Neuts (auto) 5.5, Absolute Lymphs (auto) 0.78 L, Nucleated RBC % 0, Sodium 137, Potassium 4.0, Chloride 109 H, Carbon Dioxide 19.5 L, Anion Gap 8, BUN 23 H, Creatinine 0.68 L, Estim Creat Clear Calc 51.35, Est GFR (MDRD) Non-Af 85, BUN/Creatinine Ratio 34.0 H, Glucose 168 H, Calcium 7.8 05/12/25 23:58: POC Glucose 124 H 05/13/25 05:30: WBC 7.9, RBC 2.91 L, Hgb 8.8 L, Hct 26.3 L, MCV 90.4, MCH 30.2, MCHC 33.5, RDW Std Deviation 48.9 H, RDW Coeff of Alex 14.8 H, Plt Count 149 L, MPV 9.6, Immature Gran % (Auto) 0.600, Neut % (Auto) 70.8 H, Lymph % (Auto) 14.8L, Stanly % (Auto) 11.2 H, Eos % (Auto) 2.3, Baso % (Auto) 0.3, Absolute Neuts (auto) 5.6, Absolute Lymphs (auto) 1.16, Nucleated RBC % 0, Hemoglobin A1c 5.5, Triglycerides 133, Cholesterol 122, LDL Cholesterol, Calc 61, VLDL Cholesterol 27, HDL Cholesterol 34 L, Cholesterol/HDL Ratio 3.58, TSH 2.480 05/13/25 06:28: POC Glucose 119 H Micro: Microbiology 05/10/25 18:33 Blood Culture (Wb) - Anticubital Right Blood Culture - Preliminary No growth in 48 hours. Radiography Diagnostic Testing: Radiology Impression Echocardiogram 05/11/25 19:18 Interpretation Summary The estimated ejection fraction is 65 %. Stage 2 diastolic dysfunction. The left atrium is mildly enlarged. Stable appearing bioprosthetic aortic valve apparatus. Mean peak gradient 24 mmHg. Mild (1+) tricuspid valve insufficiency. Pulmonary artery systolic pressure is 52 mmHg. Contrast injection was performed. Ordering Physician: Sourav Casiano Performed By: José Manuel Siddiqui and Student Subject: Neurology Subjective I did not see the patient today, I reviewed pertinent pending data to provide final recommendations EEG Results Procedure Details EEG Procedure Details: GOGO WARE is a 85 year old F with a past medical history of, who presents for evaluation of Electroencephalogram on DATE at TIME Assessment and Plan: Stroke Assessment/Plan GOGO WARE is a 85 yo F with PMH of TAVR and CAD on plavyx, VTE on Eliquis, HTN, and Glaucoma who is admitted to [place] for L femur fracture s/p L ORIF on 05/09/25. Neurovascular consulted after patient was evaluated for L facial droop (chronic) and altered mentation post op and was found to have acute ischemia on MRI. Numerous Scattered Small Acute Stroke in BL Cerebral and Cerebellar Hemispheres Etiology: Cryptogenic, ESUS CT/CTA completed. CTH showed prior periventricular L lacunar stroke but otherwise non acute; CTA showed bilateral ICAD without severe flow limiting stenosis or occlusion. TTE complete. EF 65%, mild LVH, LA mildly enlarged. Stable AV bioprosthesis. LDL is 61, Continue Atorvastatin 40 mg qhs A1c is 5.5, Continue ensuring glycemic control AC/AP Plan: Patient is already on Eliquis for VTE history, and on ASA (prior to hospitalize Plavix per chart review) for CAD/TAVR. She is planned to continue these at discharge. As she is already on AC/AP therapy, would not add additionalAC/AP to this regimen. Would recommend quality assurance monitor/30-day event monitor at discharge Would recommend vascular risk factor modification ? LDL Goal < 70 ? Smoking Cessation ? Diabetes Management ? skilled nursing blood pressure control should achieve <130/80 mmHg. BP management should aim to achieve termite exterminator contorl in a reasonable amount of time, taking into consideration the individual patient's requirements and characteristics. ? Weight Management: Goal for BMI is 18.5 -24.9 kg/mg ? Alcohol: No more than 2 drinks/day for men or 1 drink/day for non- women ? Promote lifestyle modification: weight control, physical activity, moderation of alcohol intake, moderate sodium intake. 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 Ensure PCP follow up in 1- 2 weeks. Cardiology follow up as needed. NIHSS NIHSS Nursing Documentation NIHSS Nursing Documentation: NIHSS: Ischemic Stroke/TIA Start: 05/12/25 09:41 Freq: [id number] Status: Active Protocol: Activity Type Activity Date Activity User E-sign Co-sign Detail Recorded Client Recorded Date Recorded By Document 05/13/25 07:18 EM desktop 05/13/25 07:20 EM 05/13/25 07:18 NIH Stroke Scale [NIHSS] A score of 0 is "normal" or asymptomatic . Total possible score is 42. Inpatient: RN or Physician to activate a stroke alert for onset of new stroke symptoms or with NIHSS increase >/= 3 points. Following change in neurological status, NIHSS will be performed per physician order or more frequently PRN. -1a. Level of Consciousness 0 - Alert; keenly responsive -1b. LOC Questions 1 - Answers ONE question correctly -1c. LOC Commands 0 - Performs BOTH tasks correctly -2. Best Gaze 0 - Normal -3. Visual 0 - No visual loss -4. Facial Palsy 1 - Minor paralysis ( flattened nasolabial fold , asymmetry on smiling) -5a. Left Arm 0 - No drift; arm holds 90 ( or 45) degrees for full 10 seconds -5b. Right Arm 0 - No drift; arm holds 90 ( or 45) degrees for full 10 seconds -6a. Left Leg 3 - No effort against gravity ; leg falls to bed immediately -6b. Right Leg 2 - Some effort against gravity; -7. Limb Ataxia 1 - Present in 1 limb -8. Sensory 0 - Normal; no sensory loss -9. Best Language 1 - Mild-to- moderate aphasia; -10. Dysarthria 1 = Mild-to- moderate dysarthria; -11. Extinction and Inattention 0 - No abnormality -Total 10 Query Text:A score of 0 is "normal" or asymptomatic. Total possible score is 42 . ED: Notify Physician for NIHSS increase by > / = 3 points. Inpatient: RN or Physician to activate a stroke alert for NIHSS increase of > / = 3 points. Coma Scale [Assess] -Eye Opening Spontaneous -Motor Obeys Commands -Verbal Confused [Total] -Coma Scale Total 14 05/13/25 1108 <Electronically signed by Deann Santana MD> Cosigner Signature (if applicable): CC: ~ Signed [facility] Work Phone: 1(270) 313-312107-17-2025 Progress note [facility] Medical Records Department [address] [place] [id number] Progress Note - Neurology 05/13/25 1106 MR#: [id number] Acct: [id number] Name: GOGO WARE p #:[id number] : 1940 85 From: Deann Santana MD PCP: Dr. Eh Huddleston MD Status:ADM I N Location: [place] [address] Objective Data Objective Data Vital Signs: Vital Signs Temp Pulse Resp BP Pulse Ox O2 Del Method 97.2 F L 73 17 177/70 H 100 Room Air 05/13/25 09:10 05/13/25 09:10 05/13/25 09:10 05/13/25 09:10 05/13/25 09:10 05/13/25 09:10 Oxygen Delivery Method Room Air Weight: 75.6 kg Body Mass Index (BMI) 27.3 Intake & Output: Intake and Output for Last 24 Hours 05/11/25 05/12/25 05/13/25 23:59 23:59 23:59 Intake Total 3265.00 / 3265.00 1000 / 1000 Output Total 1100 / 1900 1650 / 2100 850 / 850 Balance 2165.00 / 1365.00 -650 / -1100 -850 / -850 Lab / Micro Data 05/13/25 05:30 05/12/25 11:29 Labs: Laboratory Results - last 24 hr 05/12/25 11:29: WBC 7.3, RBC 2.74 L, Hgb 8.3 L, Hct 24.6 L, MCV 89.8, MCH 30.3, MCHC 33.7, RDW Std Deviation 48.1 H, RDW Coeff of Alex 14.8 H, Plt Count 129 L, MPV 10.1, Immature Gran % (Auto) 0.700, Neut % (Auto) 76.4 H, Lymph % (Auto) 10.7 L, Stanly % (Auto) 10.9 H, Eos % (Auto) 1.2, Baso % (Auto) 0.1, Absolute Neuts (auto) 5.5, Absolute Lymphs (auto) 0.78 L, Nucleated RBC % 0, Sodium 137, Potassium 4.0, Chloride 109 H, Carbon Dioxide 19.5 L, Anion Gap 8, BUN 23 H, Creatinine 0.68 L, Estim CreatClear Calc 51.35, Est GFR (MDRD) Non-Af 85, BUN/Creatinine Ratio 34.0 H, Glucose 168 H, Calcium 7.8 05/12/25 23:58: POC Glucose 124 H 05/13/25 05:30: WBC 7.9, RBC 2.91 L, Hgb 8.8 L, Hct 26.3 L, MCV 90.4, MCH 30.2, MCHC 33.5, RDW Std Deviation 48.9 H, RDW Coeff of Alex 14.8 H, Plt Count 149 L, MPV 9.6, Immature Gran % (Auto) 0.600, Neut % (Auto) 70.8 H, Lymph % (Auto) 14.8L, Stanly % (Auto) 11.2 H, Eos % (Auto) 2.3, Baso % (Auto) 0.3, Absolute Neuts (auto) 5.6, Absolute Lymphs (auto) 1.16, Nucleated RBC % 0, Hemoglobin A1c 5.5, Triglycerides 133, Cholesterol 122, LDL Cholesterol, Calc 61, VLDL Cholesterol 27, HDL Cholesterol 34 L, Cholesterol/HDL Ratio 3.58, TSH 2.480 05/13/25 06:28: POC Glucose 119 H Micro: Microbiology 05/10/25 18:33 Blood Culture (Wb) - Anticubital Right Blood Culture - Preliminary No growth in 48 hours. Radiography Diagnostic Testing: Radiology Impression Echocardiogram 05/11/25 19:18 Interpretation Summary The estimated ejection fraction is 65 %. Stage 2 diastolic dysfunction. The left atrium is mildly enlarged. Stable appearing bioprosthetic aortic valve apparatus. Mean peak gradient 24 mmHg. Mild (1+) tricuspid valve insufficiency. Pulmonary artery systolic pressure is 52 mmHg. Contrast injection was performed. Ordering Physician: Sourav Casiano Performed By: José Manuel Siddiqui and Student Subject: Neurology Subjective I did not see the patient today, I reviewed pertinent pending data to provide final recommendations EEG Results Procedure Details EEG Procedure Details: GOGO WARE is a 85 year old F with a past medical history of, who presents for evaluation of Electroencephalogram on DATE at TIME Assessment and Plan: Stroke Assessment/Plan GOGO WARE is a 85 yo F with PMH of TAVR and CAD on plavyx, VTE on Eliquis, HTN, and Glaucoma who is admitted to [place] for L femur fracture s/p L ORIF on 05/09/25. Neurovascular consulted after patient was evaluated for L facial droop (chronic) and altered mentation post op andwas found to have acute ischemia on MRI. Numerous Scattered Small Acute Stroke in BL Cerebral and Cerebellar Hemispheres Etiology: Cryptogenic, ESUS CT/CTA completed. CTH showed prior periventricular L lacunar stroke but otherwise non acute; CTA showed bilateral ICAD without severe flow limiting stenosis or occlusion. TTE complete. EF 65%, mild LVH, LA mildly enlarged. Stable AV bioprosthesis. LDL is 61, Continue Atorvastatin 40 mg qhs A1c is 5.5, Continue ensuring glycemic control AC/AP Plan: Patient is already on Eliquis for VTE history, and on ASA (prior to hospitalize Plavix per chart review) for CAD/TAVR. She is planned to continue these at discharge. As she is already on AC/AP therapy, would not add additionalAC/AP to this regimen. Would recommend quality assurance monitor/30-day event monitor at discharge Would recommend vascular risk factor modification ? LDL Goal < 70 ? Smoking Cessation ? Diabetes Management ? 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 ? Weight Management: Goal for BMI is 18.5 -24.9 kg/mg ? Alcohol: No more than 2 drinks/day for men or 1 drink/day for non- women ? Promote lifestyle modification: weight control, physical activity, moderation of alcohol intake, moderate sodium intake. 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 Ensure PCP follow up in 1- 2 weeks.Cardiology follow up as needed. NIHSS NIHSS Nursing Documentation NIHSS Nursing Documentation: NIHSS: Ischemic Stroke/TIA Start: 05/12/25 09:41 Freq: [id number] Status: Active Protocol: Activity Type Activity Date Activity User E-sign Co-sign Detail Recorded Client Recorded Date Recorded By Document 05/13/25 07:18 EM desktop 05/13/25 07:20 EM 05/13/25 07:18 NIH Stroke Scale [NIHSS] A score of 0 is "normal" or asymptomatic . Total possible score is 42. Inpatient: RN or Physician to activate a stroke alert for onset of new stroke symptoms or with NIHSS increase >/= 3 points. Following change in neurological status, NIHSS will be performed per physician order or more frequently PRN. -1a. Level of Consciousness 0 - Alert; keenly responsive -1b. LOC Questions 1 - Answers ONE question correctly -1c. LOC Commands 0 - Performs BOTH tasks correctly -2. Best Gaze 0 - Normal -3. Visual 0 - No visual loss -4. Facial Palsy 1 - Minor paralysis ( flattened nasolabial fold , asymmetry on smiling) -5a. Left Arm 0 - No drift; arm holds 90 ( or 45) degrees for full 10 seconds -5b. Right Arm 0 - No drift; arm holds 90 ( or 45) degrees for full 10 seconds -6a. Left Leg 3 - No effort against gravity ; leg falls to bed immediately -6b. Right Leg 2 - Some effort against gravity; -7. Limb Ataxia 1 - Present in 1 limb -8. Sensory 0 - Normal; no sensory loss -9. Best Language 1 - Mild-to- moderate aphasia; -10. Dysarthria 1 = Mild-to- moderate dysarthria; -11. Extinction and Inattention 0 - No abnormality -Total 10 Query Text:A score of 0 is "normal" or asymptomatic. Total possible score is 42 . ED: Notify Physician for NIHSS increase by > / = 3 points. Inpatient: RN or Physician to activate a stroke alert for NIHSS increase of > / = 3 points. Coma Scale [Assess] -Eye Opening Spontaneous -Motor Obeys Commands -Verbal Confused [Total] -Coma Scale Total 14 05/13/25 1108 Cosigner Signature (if applicable): CC: ~ Signed [facility]07-16-2025 Progress note Author Manny Murdock [facility] Note Date/Time May 12, 2025 4:26 pm [facility] Medical Records Department [address] [place] [address] Progress Note - Hospitalist 05/12/25 1612 MR#: [id number] Acct: [id number] Name: GOGO WARE Heidi p #:[id number] : 1940 85 From: Manny Millard PCP: Dr. Eh Huddleston MD Status:ADM I N Location: [place] [address] Reason for Visit Chief Complaint: Left leg injury, inability to ambulate Objective Data Objective Data Vital Signs: Vital Signs Temp Pulse Resp BP Pulse Ox O2 Del Method 98.8 F 65 16 140/59 H 100 Room Air 05/12/25 15:59 05/12/25 15:59 05/12/25 15:59 05/12/25 15:59 05/12/25 15:59 05/12/25 15:59 Oxygen Delivery Method Room Air Weight: 166 lb 10.711 oz Body Mass Index (BMI) 27.3 Intake & Output: Intake and Output for Last 24 Hours 05/10/25 05/11/25 05/12/25 23:59 23:59 23:59 Intake Total 1337.08 / 1437.08 3265.00 / 3265.00 1000 / 1000 Output Total 200 / 200 1100 / 1900 1150 / 1150 Balance 1137.08 / 1237.08 2165.00 / 1365.00 -150 / -150 Lab / Micro Data 05/12/25 11:29 05/12/25 11:29 Labs: Laboratory Results - last 24 hr 05/11/25 10:15: Blood Type AB POSITIVE, Antibody Screen NEGATIVE, Crossmatch SeeDetail 05/12/25 11:29: WBC 7.3, RBC 2.74 L, Hgb 8.3 L, Hct 24.6 L, MCV 89.8, MCH 30.3, MCHC 33.7, RDW Std Deviation 48.1 H, RDW Coeff of Alex 14.8 H, Plt Count 129 L, MPV 10.1, Immature Gran % (Auto) 0.700, Neut % (Auto) 76.4 H, Lymph % (Auto) 10.7 L, Stanly % (Auto) 10.9 H, Eos % (Auto) 1.2, Baso % (Auto) 0.1, Absolute Neuts (auto) 5.5, Absolute Lymphs (auto) 0.78 L, Nucleated RBC % 0, Sodium 137, Potassium 4.0, Chloride 109 H, Carbon Dioxide 19.5 L, Anion Gap 8, BUN 23 H, Creatinine 0.68 L, Estim Creat Clear Calc 51.35, Est GFR (MDRD) Non-Af 85, BUN/Creatinine Ratio 34.0 H, Glucose 168 H, Calcium 7.8 Radiography Diagnostic Testing: Radiology Impression Brain MRI 05/11/25 12:05 IMPRESSION: 1. Numerous scattered small foci of acute infarct throughout the bilateral cerebral and cerebellar hemispheres as described, presumably embolic. 2. Background of moderate-advanced chronic small-vessel ischemic changes, with several foci of chronic lacunar infarct mainly involving the left cerebral periventricular white matter. 3. No intracranial hemorrhage, extra-axial collection, or mass-effect. Reading Location: [id number] Echocardiogram 05/11/25 19:18 Interpretation Summary The estimated ejection fraction is 65 %. Stage 2 diastolic dysfunction. The left atrium is mildly enlarged. Stable appearing bioprosthetic aortic valve apparatus. Mean peak gradient 24 mmHg. Mild (1+) tricuspid valve insufficiency. Pulmonary artery systolic pressure is 52 mmHg. Contrast injection was performed. Ordering Physician: Sourav Casiano Performed By: José Manuel Siddiqui and Student Physical Exam Narrative Seen and examined Patient has slow speech and slurred. Chronic left-sided facial droop. Found tohave a small stroke suspected embolic stroke on MRI. Physical exam General: Alert, Oriented x3, Cooperative. BMI 27.3 kg/m? HEENT: Atraumatic, PERRLA, EOMI, Normocephalic. Oral: No Gingival or Mucosal Lesions/ Ulcerations Neck: Supple, No JVD, Negative Carotid Bruits Chest wall/Lungs: Air entry equal in bilateral lung bases. No crepitation/rhonchi Cardiovascular: Regular rate and rhythm, Normal S1,S2, No M/G/R Abdomen: Bowel Sounds Present, Soft, Non Tender, Non-Distended : No dysuria. No renal angle tenderness. No suprapubic tenderness. Extremities: No edema, Capillary Refill Less than 3 Seconds Skin: Surgical dressing over left hip is dry Musculoskeletal: No Tenderness to Palpation of Joints or Extremities. Muscle strength 4/5 at left leg at hip joint with recent surgery. NIH stroke scale 8 with mild aphasia and dysarthria. Neurological: Cranial nerves II-XII grossly intact, DTR 2+/4. Mild slurring speech. Psych/Mental Status: Flat affect Assessment & Plan Assessment/Plan (1) Femoral distal fracture: QUALIFIERS: Encounter type: initial encounter Fracture type: closed Laterality: left PLAN: Plan Patient was admitted with distal left femur fracture and underwent ORIF on 05/10/2025. Later on stroke alert was called for patient having slurred speech and encephalopathy therefore transferred from [facility] to PCU. 1. Left distal femur fracture secondary to osteoporosis- 05/12: Patient had left distal femoral shaft spiral fracture for which she had ORIF. PT OT to continue. #2. Acute stroke suspected embolic with numerous scattered in bilateral cerebral and cerebellar hemispheres: Etiology cryptogenic. Patient had MRI which was reviewed by the neurologist and reported numerous scattered small fociof acute infarct throughout the bilateral cerebral and cerebellar hemispheres asdescribed, presumably embolic. Chronic moderate-advanced chronic small-vessel ischemic changes, with several foci of chronic lacunar infarct mainly involving the left cerebral periventricular white matter. Patient was evaluated by neurologist. Continue baby aspirin and Eliquis. On high intensity statin. Neurologist recommended 30-day event monitor. Follow-up with neurology as an outpatient. 2D echo left atrium mildly enlarged prominent eustachian valve. Mild TR PASP 52 mmHg. Stable appearing bioprosthetic aortic valve/TAVR. Mean AV gradient 24 mmHg. Earlier echo reported intact atrial septum in June [address] Abraham Sheppard CTA no flow-limiting stenosis or LVO. 3. History of valvular heart disease with recent TAVR-patient appears medicallystable 4. Coronary artery disease-patient appears medically stable at this time, I will hold her Plavix for now #4 essential hypertension-patient will remain on her current medications #5 chronic use of anticoagulant-patient is on Eliquis #6 glaucoma-patient will remain on her eyedrops #7 acute anemia secondary to left distal femur fracture-patient's hemoglobin this morning was 6.3, patient will receive 2 units of packed red blood cells, CBC will be repeated tomorrow 05/12, repeat hemoglobin 8.3/24%. Platelet count 1 29K. #8 transient episode of slurred speech-etiology unclear, will have an MRI of thebrain performed today #9 leukocytosis-etiology unclear, patient's white blood cell count today was normal, Leukocytosis has resolved. Patient is not on antibiotic, discontinued earlier. #10 encephalopathy probably due to embolic stroke as mentioned above: Encephalopathy has resolved. Laboratory Results 05/11/25 10:15: Blood Type AB POSITIVE, Antibody Screen NEGATIVE, Crossmatch SeeDetail 05/12/25 11:29: WBC 7.3, RBC 2.74 L, Hgb 8.3 L, Hct 24.6 L, MCV 89.8, MCH 30.3, MCHC 33.7, RDW Std Deviation 48.1 H, RDW Coeff of Alex 14.8 H, Plt Count 129 L, MPV 10.1, Immature Gran % (Auto) 0.700, Neut % (Auto) 76.4 H, Lymph % (Auto) 10.7 L, Stanly % (Auto) 10.9 H, Eos % (Auto) 1.2, Baso % (Auto) 0.1, Absolute Neuts (auto) 5.5, Absolute Lymphs (auto) 0.78 L, Nucleated RBC % 0, Sodium 137, Potassium 4.0, Chloride 109 H, Carbon Dioxide 19.5 L, Anion Gap 8, BUN 23 H, Creatinine 0.68 L, Estim Creat Clear Calc 51.35, Est GFR (MDRD) Non-Af 85, BUN/Creatinine Ratio 34.0 H, Glucose 168 H, Calcium 7.8 Clinical Impression(s) from Imaging Studies Pelvis X-Ray 05/07/25 07:21 IMPRESSION: A spiral FRACTURE of the distal left femoral shaft is seen, with some override also present. No intra-articular extension is clearly evident. 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 In visualized areas, no evidence of prosthesis loosening or metallic fracture is seen. Vascular stent is seen overlying the right femoral neck. Mild sacroiliac joint degenerative changes are noted. Prominent degenerative changes of the visualized lower lumbar spine are seen. [id number] degenerative changes of the visualized portions of the left knee. Reading Location: [id number] Femur X-Ray 05/07/25 07:24 IMPRESSION: A spiral FRACTURE of the distal left femoral shaft is seen, with some override also present. No intra-articular extension is clearly evident. 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 In visualized areas, no evidence of prosthesis loosening or metallic fracture is seen. Vascular stent is seen overlying the right femoral neck. Mild sacroiliac joint degenerative changes are noted. Prominent degenerative changes of the visualized lower lumbar spine are seen. Wwyd-[id number] degenerative changes of the visualized portions of the left knee. Reading Location: [id number] Femur X-Ray 05/09/25 08:00 IMPRESSION: Anatomic alignment [facility] 05/10/25 09:24 IMPRESSION: CHRONIC CHANGES. NO ACUTE FINDINGS. Reading Location: [facility] Head/Neck CTA 05/10/25 09:35 IMPRESSION: Atherosclerotic calcific plaques at the origin of the right and left internal carotid arteries as described. Red Alert: Nothing acute The critical information above was relayed directly by me by telephone to Sourav Casiano on 05/10/2025 at 9:55 am with readback verification. Reading Location: [facility] Brain MRI 05/11/25 12:05 IMPRESSION: 1. Numerous scattered small foci of acute infarct throughout the bilateral cerebral and cerebellar hemispheres as described, presumably embolic. 2. Background of moderate-advanced chronic small-vessel ischemic changes, with several foci of chronic lacunar infarct mainly involving the left cerebral periventricular white matter. 3. No intracranial hemorrhage, extra-axial collection, or mass-effect. Echocardiogram 05/11/25 19:18 Interpretation Summary The estimated ejection fraction is 65 %. Stage 2 diastolic dysfunction. The left atrium is mildly enlarged. Stable appearing bioprosthetic aortic valve apparatus. Mean peak gradient 24 mmHg. Mild (1+) tricuspid valve insufficiency. Pulmonary artery systolic pressure is 52 mmHg. Contrast injection was performed. Ordering Physician: Sourav Casiano Performed By: José Manuel Siddiqui and Student Charges/Coding Addendum Addendum: Total time of the visit including total time spent in counseling or coordinationof care, (more than 50% of the total time, spent in obtaining medical information from nurses and other ancillary care providers ,explaining to the patient about labs, imaging, diagnosis and management of active complex medical conditions), discussion with the neurologist, review of labs and imaging is 35 minutes. Visit Charges Inpatient E&M: 26753 Subs Hosp L3 NIHSS NIHSS Nursing Documentation NIHSS Nursing Documentation: NIHSS: Ischemic Stroke/TIA Start: 05/12/25 09:41 Freq: [id number] Status: Active Protocol: Activity Type Activity Date Activity User E-sign Co-sign Detail Recorded Client Recorded Date Recorded By Document 05/12/25 12:32 LR [id number] 05/12/25 12:41 LR 05/12/25 12:32 NIH Stroke Scale [NIHSS] A score of 0 is "normal" or asymptomatic . Total possible score is 42. Inpatient: RN or Physician to activate a stroke alert for onset of new stroke symptoms or with NIHSS increase >/= 3 points. Following change in neurological status, NIHSS will be performed per physician order or more frequently PRN. -1a. Level of Consciousness 0 - Alert; keenly responsive -1b. LOC Questions 2 - Answers NEITHER question correctly -1c. LOC Commands 0 - Performs BOTH tasks correctly -2. Best Gaze 0 - Normal -3. Visual 0 - No visual loss -4. Facial Palsy 1 - Minor paralysis ( flattened nasolabial fold , asymmetry on smiling) -5a. Left Arm 0 - No drift; arm holds 90 ( or 45) degrees for full 10 seconds -5b. Right Arm 0 - No drift; arm holds 90 ( or 45) degrees for full 10 seconds -6a. Left Leg 0 - No drift; leg holds 30- degree position for full 5 seconds -6b. Right Leg 2 - Some effort against gravity; -7. Limb Ataxia 1 - Present in 1 limb -8. Sensory 0 - Normal; no sensory loss -9. Best Language 1 - Mild-to- moderate aphasia; -10. Dysarthria 1 = Mild-to- moderate dysarthria; -11. Extinction and Inattention 0 - No abnormality -Total 8 Query Text:A score of 0 is "normal" or asymptomatic. Total possible score is 42 . ED: Notify Physician for NIHSS increase by > / = 3 points. Inpatient: RN or Physician to activate a stroke alert for NIHSS increase of > / = 3 points. 05/12/25 1626 <Electronically signed by Manny Murdock MD> Cosigner Signature (if applicable): CC: ~ Signed [facility] Work Phone: 1(305) 575-453907-16-2025 Progress note [facility] Medical Records Department [address] [place] [address] Progress Note - Hospitalist 05/12/25 1612 MR#: [id number] Acct: [id number] Name: GOGO WARE p #:[id number] : 1940 85 From: Manny Millard PCP: Dr. Eh Huddleston MD Status:ADM I N Location: [place] [address] Reason for Visit Chief Complaint: Left leg injury, inability to ambulate Objective Data Objective Data Vital Signs: Vital Signs Temp Pulse Resp BP Pulse Ox O2 Del Method 98.8 F 65 16 140/59 H 100 Room Air 05/12/25 15:59 05/12/25 15:59 05/12/25 15:59 05/12/25 15:59 05/12/25 15:59 05/12/25 15:59 Oxygen Delivery Method Room Air Weight: 166 lb 10.711 oz Body Mass Index (BMI) 27.3 Intake & Output: Intake and Output for Last 24 Hours 05/10/25 05/11/25 05/12/25 23:59 23:59 23:59 Intake Total 1337.08 / 1437.08 3265.00 / 3265.00 1000 / 1000 Output Total 200 / 200 1100 / 1900 1150 / 1150 Balance 1137.08 / 1237.08 2165.00 / 1365.00 -150 / -150 Lab / Micro Data 05/12/25 11:29 05/12/25 11:29 Labs: Laboratory Results - last 24 hr 05/11/25 10:15: Blood Type AB POSITIVE, Antibody Screen NEGATIVE, Crossmatch SeeDetail 05/12/25 11:29: WBC 7.3, RBC 2.74 L, Hgb 8.3 L, Hct 24.6 L, MCV 89.8, MCH 30.3, MCHC 33.7, RDW Std Deviation 48.1 H, RDW Coeff of Alex 14.8 H, Plt Count 129 L, MPV 10.1, Immature Gran % (Auto) 0.700, Neut % (Auto) 76.4 H, Lymph % (Auto) 10.7 L, Stanly % (Auto) 10.9 H, Eos % (Auto) 1.2, Baso % (Auto) 0.1, Absolute Neuts (auto) 5.5, Absolute Lymphs (auto) 0.78 L, Nucleated RBC % 0, Sodium 137, Potassium 4.0, Chloride 109 H, Carbon Dioxide 19.5 L, Anion Gap 8, BUN 23 H, Creatinine0.68 L, Estim Creat Clear Calc 51.35, Est GFR (MDRD) Non-Af 85, BUN/Creatinine Ratio 34.0 H, Glucose 168 H, Calcium 7.8 Radiography Diagnostic Testing: Radiology Impression Brain MRI 05/11/25 12:05 IMPRESSION: 1. Numerous scattered small foci of acute infarct throughout the bilateral cerebral and cerebellar hemispheres as described, presumably embolic. 2. Background of moderate-advanced chronic small-vessel ischemic changes, with several foci of chronic lacunar infarct mainly involving the left cerebral periventricular white matter. 3. No intracranial hemorrhage, extra-axial collection, or mass-effect. Reading Location: [id number] Echocardiogram 05/11/25 19:18 Interpretation Summary The estimated ejection fraction is 65 %. Stage 2 diastolic dysfunction. The left atrium is mildly enlarged. Stable appearing bioprosthetic aortic valve apparatus. Mean peak gradient 24 mmHg. Mild (1+) tricuspid valve insufficiency. Pulmonary artery systolic pressure is 52 mmHg. Contrast injection was performed. Ordering Physician: Sourav Casiano Performed By: José Manuel Siddiqui and Student Physical Exam Narrative Seen and examined Patient has slow speech and slurred. Chronic left-sided facial droop. Found tohave a small stroke suspected embolic stroke on MRI. Physical exam General: Alert, Oriented x3, Cooperative. BMI 27.3 kg/m? HEENT: Atraumatic, PERRLA, EOMI, Normocephalic. Oral: No Gingival or Mucosal Lesions/ Ulcerations Neck: Supple, No JVD, Negative Carotid Bruits Chest wall/Lungs: Air entry equal in bilateral lung bases. No crepitation/rhonchi Cardiovascular: Regular rate and rhythm, Normal S1,S2, No M/G/R Abdomen: Bowel Sounds Present, Soft, Non Tender, Non-Distended : No dysuria. No renal angle tenderness. No suprapubic tenderness. Extremities: No edema, Capillary Refill Less than 3 Seconds Skin: Surgical dressing over left hip is dry Musculoskeletal: No Tenderness to Palpation of Joints or Extremities. Muscle strength 4/5 at left leg at hip joint with recent surgery. NIH stroke scale 8 with mild aphasia and dysarthria. Neurological: Cranial nerves II-XII grossly intact, DTR 2+/4. Mild slurring speech. Psych/Mental Status: Flat affect Assessment & Plan Assessment/Plan (1) Femoral distal fracture: QUALIFIERS: Encounter type: initial encounter Fracture type: closed Laterality: left PLAN: Plan Patient was admitted with distal left femur fracture and underwent ORIF on 05/10/2025. Later on stroke alert was called for patient having slurred speech and encephalopathy therefore transferred from [facility] to PCU. 1. Left distal femur fracture secondary to osteoporosis- 05/12: Patient had left distal femoral shaft spiral fracture for which she had ORIF. PT OT to continue. #2. Acute stroke suspected embolic with numerous scattered in bilateral cerebral and cerebellar hemispheres: Etiology cryptogenic. Patient had MRI which was reviewed by the neurologist and reported numerous scattered small fociof acute infarct throughout the bilateral cerebral and cerebellar hemispheres asdescribed, presumably embolic. Chronic moderate-advanced chronic small-vessel ischemic changes, with several foci of chronic lacunar infarct mainly involving the left cerebral periventricular white matter. Patient was evaluated by neurologist. Continue baby aspirin and Eliquis. On high intensity statin. Neurologist recommended 30-day event monitor. Follow-up with neurology as an outpatient. 2D echo left atrium mildly enlarged prominent eustachian valve. Mild TR PASP 52 mmHg. Stable appearing bioprosthetic aortic valve/TAVR. Mean AV gradient 24 mmHg. Earlier echo reported intact atrial septum in June [address] Abraham Sheppard CTA no flow-limiting stenosis or LVO. 3. History of valvular heart disease with recent TAVR-patient appears medicallystable 4. Coronary artery disease-patient appears medically stable at this time, I will hold her Plavix for now #4 essential hypertension-patient will remain on her current medications #5 chronic use of anticoagulant-patient is on Eliquis #6 glaucoma-patient will remain on her eyedrops #7 acute anemia secondary to left distal femur fracture-patient's hemoglobin this morning was 6.3, patient will receive 2 units of packed red blood cells, CBC will be repeated tomorrow 05/12, repeat hemoglobin 8.3/24%. Platelet count 1 29K. #8 transient episode of slurred speech-etiology unclear, will have an MRI of thebrain performed today #9 leukocytosis-etiology unclear, patient's white blood cell count today was normal, Leukocytosis has resolved. Patient is not on antibiotic, discontinued earlier. #10 encephalopathy probably due to embolic stroke as mentioned above: Encephalopathy has resolved. Laboratory Results 05/11/25 10:15: Blood Type AB POSITIVE, Antibody Screen NEGATIVE, Crossmatch SeeDetail 05/12/25 11:29: WBC 7.3, RBC 2.74 L, Hgb 8.3 L, Hct 24.6 L, MCV 89.8, MCH 30.3, MCHC 33.7, RDW Std Deviation 48.1 H, RDW Coeff of Alex 14.8 H, Plt Count 129 L, MPV 10.1, Immature Gran % (Auto) 0.700, Neut % (Auto) 76.4 H, Lymph % (Auto) 10.7 L, Stanly % (Auto) 10.9 H, Eos % (Auto) 1.2, Baso % (Auto) 0.1, Absolute Neuts (auto) 5.5, Absolute Lymphs (auto) 0.78 L, Nucleated RBC % 0, Sodium 137, Potassium 4.0, Chloride 109 H, Carbon Dioxide 19.5 L, Anion Gap 8, BUN 23 H, Creatinine 0.68 L, Estim CreatClear Calc 51.35, Est GFR (MDRD) Non-Af 85, BUN/Creatinine Ratio 34.0 H, Glucose 168 H, Calcium 7.8 Clinical Impression(s) from Imaging Studies Pelvis X-Ray 05/07/25 07:21 IMPRESSION: A spiral FRACTURE of the distal left femoral shaft is seen, with some override also present. No intra-articular extension is clearly evident. 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 In visualized areas, no evidence of prosthesis loosening or metallic fracture is seen. Vascular stent is seen overlying the right femoral neck. Mild sacroiliac joint degenerative changes are noted. Prominent degenerative changes of the visualized lower lumbar spine are seen. [id number] degenerative changes of the visualized portions of the left knee. Reading Location: [id number] Femur X-Ray 05/07/25 07:24 IMPRESSION: A spiral FRACTURE of the distal left femoral shaft is seen, with some override also present. No intra-articular extension is clearly evident. 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 In visualized areas, no evidence of prosthesis loosening or metallic fracture is seen. Vascular stent is seen overlying the right femoral neck. Mild sacroiliac joint degenerative changes are noted. Prominent degenerative changes of the visualized lower lumbar spine are seen. [id number] degenerative changes of the visualized portions of the left knee. Reading Location: [id number] Femur X-Ray 05/09/25 08:00 IMPRESSION: Anatomic alignment [facility] 05/10/25 09:24 IMPRESSION: CHRONIC CHANGES. NO ACUTE FINDINGS. Reading Location: [facility] Head/Neck CTA 05/10/25 09:35 IMPRESSION: Atherosclerotic calcific plaques at the origin of the right and left internal carotid arteries as described. Red Alert: Nothing acute The critical information above was relayed directly by me by telephone to Sourav Casiano on 05/10/2025 at 9:55 am with readback verification. Reading Location: [facility] Brain MRI 05/11/25 12:05 IMPRESSION: 1. Numerous scattered small foci of acute infarct throughout the bilateral cerebral and cerebellar hemispheres as described, presumably embolic. 2. Background of moderate-advanced chronic small-vessel ischemic changes, with several foci of chronic lacunar infarct mainly involving the left cerebral periventricular white matter. 3. No intracranial hemorrhage, extra-axial collection, or mass-effect. Echocardiogram 05/11/25 19:18 Interpretation Summary The estimated ejection fraction is 65 %. Stage 2 diastolic dysfunction. The left atrium is mildly enlarged. Stable appearing bioprosthetic aortic valve apparatus. Mean peak gradient 24 mmHg. Mild (1+) tricuspid valve insufficiency. Pulmonary artery systolic pressure is 52 mmHg. Contrast injection was performed. Ordering Physician: Sourav Casiano Performed By: José Manuel Siddiqui and Student Charges/Coding Addendum Addendum: Total time of the visit including total time spent in counseling or coordinationof care, (more than50% of the total time, spent in obtaining medical information from nurses and other ancillary care providers ,explaining to the patient about labs, imaging, diagnosis and management of active complexmedical conditions), discussion with the neurologist, review of labs and imaging is 35 minutes. Visit Charges Inpatient E&M: 47321 Subs Hosp L3 NIHSS NIHSS Nursing Documentation NIHSS Nursing Documentation: NIHSS: Ischemic Stroke/TIA Start: 05/12/25 09:41 Freq: [id number] Status: Active Protocol: Activity Type Activity Date Activity User E-sign Co-sign Detail Recorded Client Recorded Date Recorded By Document 05/12/25 12:32 [facility] [id number] 05/12/25 12:41 [facility] 05/12/25 12:32 NIH Stroke Scale [NIHSS] A score of 0 is "normal" or asymptomatic . Total possible score is 42. Inpatient: RN or Physician to activate a stroke alert for onset of new stroke symptoms or with NIHSS increase >/= 3 points. Following change in neurological status, NIHSS will be performed per physician order or more frequently PRN. -1a. Level of Consciousness 0 - Alert; keenly responsive -1b. LOC Questions 2 - Answers NEITHER question correctly -1c. LOC Commands 0 - Performs BOTH tasks correctly -2. Best Gaze 0 - Normal -3. Visual 0 - No visual loss -4. Facial Palsy 1 - Minor paralysis ( flattened nasolabial fold , asymmetry on smiling) -5a. Left Arm 0 - No drift; arm holds 90 ( or 45) degrees for full 10 seconds -5b. Right Arm 0 - No drift; arm holds 90 ( or 45) degrees for full 10 seconds -6a. Left Leg 0 - No drift; leg holds 30- degree position for full 5 seconds -6b. Right Leg 2 - Some effort against gravity; -7. Limb Ataxia 1 - Present in 1 limb -8. Sensory 0 - Normal; no sensory loss -9. Best Language 1 - Mild-to- moderate aphasia; -10. Dysarthria 1 = Mild-to- moderate dysarthria; -11. Extinction and Inattention 0 - No abnormality -Total 8 Query Text:A score of 0 is "normal" or asymptomatic. Total possible score is 42 . ED: Notify Physician for NIHSS increase by > / = 3 points. Inpatient: RN or Physician to activate a stroke alert for NIHSS increase of > / = 3 points. 05/12/25 1626 Cosigner Signature (if applicable): CC: ~ Signed [facility]07-16-2025 Consult note Author Deann Santana [facility] Note Date/Time May 12, 2025 1:24 pm [facility] Medical Records Department [address] [place] [address] Consultation - Neurology 05/12/25 1318 MR#: [id number] Acct: [id number] Name: GOGO WARE p #:[id number] : 1940 85 From: Deann Santana MD PCP: Dr. 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 Neurovascular consulted after patient was evaluated for L facial droop (chronic), and altered mentation post op and was found to have acute ischemia on MRI. Numerous Scattered Small Acute Stroke in BL Cerebral and Cerebellar Hemispheres Etiology: Cryptogenic, ESUS CT/CTA completed. CTH showed prior periventricular L lacunar stroke but otherwise non acute; CTA showed bilateral ICAD without severe flow limiting stenosis or occlusion. TTE pending Please obtain LDL, A1C Patient is already on Eliquis for VTE history, and on ASA (prior to hospitalize Plavix per chart review) for CAD/TAVR. She is planned to continue these at discharge. As she is already on AC/AP therapy, would not add additional AC/AP tothis regimen. Start high intensity statin Would recommend quality assurance monitor/30-day event monitor at discharge Would recommend vascular risk factor modification LDL Goal < 70 Smoking Cessation Diabetes Management skilled nursing blood pressure control should achieve <130/80 mmHg. 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 Weight Management: Goal for BMI is 18.5 -24.9 kg/m2 Alcohol: No more than 2 drinks/day for men or 1 drink/day for non- women Promote lifestyle modification: weight control, physical activity, moderation of alcohol intake, moderate sodium intake. 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 Ensure PCP follow up in 1- 2 weeks. Cardiology follow up as needed. 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 Per chart review post operatively on 05/10 patient was noted by team to have dysarthria and L facial droop for which CTH/CTA obtained. On review of imaging, CTH showed prior periventricular L lacunar stroke but otherwise non acute; CTA showed bilateral ICAD without severe flow limiting stenosis or occlusion. Strokealert cancelled after family reported L facial droop was chronic. Subsequently on 05/11 had continued AMS and underwent MRI which showed bilateral shower of embolic appearing infarcts in the BL cerebral hemispheres. On evaluation today patient is alert and is coherent. She is perseverating on her words and has mild aphasia. She is able to follow all simple commands, but has difficulty with complex 2-3 step commands. She is confused and only orientedto self. She seems genuinely surprised to learn she is in the hospital and had hip surgery. She is very pleasant and calm. No agitation. BLUE move antigravity without drift. BLLE she is able to wiggle toes but not lift antigravity. 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 Essential hypertension Seborrheic keratosis Generalized weakness Fall Home Medications ?Medication ?Instructions ?Recorded ?Last Taken ?Type brimonidine 0.2 % eye drops 2 drp EACH EYE BID glaucom a 11/25/17 11/25/17 History dorzolamide 22.3 mg-timolol 6.8 1 drp EACH EYE BID gla ucoma 11/25/17 11/25/17 History mg/mL eye drops latanoprost 0.005 % eye drops 1 drp ophthalmic (eye) Q PM 12/17/19 Unknown History carvedilol 12.5 mg tablet 12.5 mg PO BID #180 tabs 05/21 Unknown Rx apixaban 5 mg tablet (Eliquis) 5 mg PO BID 05/07/25 Un known History clopidogrel 75 mg tablet 75 mg PO DAILY 05/07/25 Unkn own History temazepam 30 mg capsule 30 mg PO DAILY 05/07/25 Unkn own History valsartan 160 mg tablet 80 mg PO DAILY 05/07/25 Unkn own History Allergy/AdvReac Type Severity Reaction Status Date / Time No Known Allergies Allergy Verified 03/16/24 14:09 Family History Father Diabetes Grandmother Colon cancer Surgical History History of left heart catheterization (LHC) (~12/27/17) History of bilateral hip replacements Social History Smoking Status: Never smoker alcohol intake: current alcohol intake frequency: holidays/special occasions only Alcohol type: wine substance use type: does not use caffeine: Yes Type: coffee what type of physical activity do you participate in: none seatbelt use: always do you feel safe at home: Yes Vital Signs Vital Signs Vital Signs: 05/11/25 13:33 05/11/25 13:54 05/11/25 14:49 Temperature 98 F 97.3 F L Temperature Source Temporal Temporal Pulse Rate 79 82 Pulse Strength Respiratory Rate 18 18 Respiratory Effort Normal Non-Labored Respiratory Depth Normal Respiratory Pattern Normal Blood Pressure 124/47 H 114/49 L Blood Pressure Mean 72 70 Blood Pressure Source Monitor Blood Pressure Position Semi-Fowlers Semi-Fowlers Blood Pressure Location Left Arm Left Arm Pulse Ox 98 98 Oxygen Delivery Method Room Air Room Air 05/11/25 14:54 05/11/25 15:54 05/11/25 17:38 Temperature 97.1 F L 97.2 F L 98.4 F Temperature Source Temporal Temporal Temporal Pulse Rate 79 78 81 Pulse Strength Respiratory Rate 18 18 16 Respiratory Effort Respiratory Depth Respiratory Pattern Blood Pressure 107/64 127/48 H 117/54 L Blood Pressure Mean 78 74 75 Blood Pressure Source Monitor Monitor Monitor Blood Pressure Position Semi-Fowlers Semi-Fowlers Semi-Fowlers Blood Pressure Location Left Arm Left Arm Left Arm Pulse Ox 99 97 97 Oxygen Delivery Method Room Air Room Air Room Air 05/11/25 17:53 05/11/25 18:53 05/11/25 19:46 Temperature 98.1 F 97.6 F L 98.4 F Temperature Source Temporal Temporal Temporal Pulse Rate 84 79 76 Pulse Strength Respiratory Rate 18 18 18 Respiratory Effort Respiratory Depth Respiratory Pattern Blood Pressure 113/49 L 127/47 H 129/49 H Blood Pressure Mean 70 73 75 Blood Pressure Source Monitor Monitor Monitor Blood Pressure Position Semi-Fowlers Semi-Fowlers Semi-Fowlers Blood Pressure Location Left Arm Left Arm Left Arm Pulse Ox 99 98 97 Oxygen Delivery Method Room Air Room Air Room Air 05/11/25 20:42 05/11/25 21:27 05/12/25 00:06 Temperature 98.4 F Temperature Source Temporal Pulse Rate 77 Pulse Strength Normal (2+) Respiratory Rate 16 Respiratory Effort Normal Non-Labored Respiratory Depth Normal Respiratory Pattern Normal Blood Pressure 128/48 H Blood Pressure Mean 74 Blood Pressure Source Monitor Blood Pressure Position Semi-Fowlers Blood Pressure Location Left Arm Pulse Ox 97 Oxygen Delivery Method Room Air Room Air 05/12/25 00:12 05/12/25 02:12 05/12/25 02:16 Temperature 98.9 F 97.9 F Temperature Source Temporal Temporal Pulse Rate 77 77 Pulse Strength Respiratory Rate 16 18 Respiratory Effort Respiratory Depth Respiratory Pattern Blood Pressure 130/58 H 126/62 H Blood Pressure Mean 82 83 Blood Pressure Source Monitor Monitor Blood Pressure Position Semi-Fowlers Semi-Fowlers Blood Pressure Location Left Arm Left Arm Pulse Ox 97 98 Oxygen Delivery Method Room Air Room Air Room Air 05/12/25 04:03 05/12/25 05:55 05/12/25 08:02 Temperature 98.9 F 99.0 F Temperature Source Temporal Oral Pulse Rate 71 75 Pulse Strength Normal (2+) Respiratory Rate 16 16 Respiratory Effort Respiratory Depth Respiratory Pattern Blood Pressure 142/53 H 143/59 H Blood Pressure Mean 82 87 Blood Pressure Source Monitor Monitor Blood Pressure Position Semi-Fowlers Semi-Fowlers Blood Pressure Location Left Arm Left Arm Pulse Ox 97 97 Oxygen Delivery Method Room Air Room Air 05/12/25 08:03 05/12/25 08:18 05/12/25 09:41 Temperature 98.5 F 97.0 F L Temperature Source Temporal Temporal Pulse Rate 79 73 Pulse Strength Respiratory Rate 18 16 Respiratory Effort Normal Non-Labored Respiratory Depth Normal Respiratory Pattern Normal Blood Pressure 128/52 H 111/44 L Blood Pressure Mean 77 66 Blood Pressure Source Monitor Monitor Blood Pressure Position Semi-Fowlers Semi-Fowlers Blood Pressure Location Left Arm Left Arm Pulse Ox 98 98 Oxygen Delivery Method Room Air Room Air Room Air Weight Weight: 75.6 kg Body Mass Index (BMI) 27.3 EEG Results Procedure Details EEG Procedure Details: GOGO WARE is a 85 year old F with a past medical history of, who presents for evaluation of Electroencephalogram on DATE at TIME Physical Exam Narrative Exam: Alert and oriented to self only EOMI, L facial droop Mild dysarthria and aphasia Following commands BLUE antigravity without drift BLLE wiggles toes FTN intact NIHSS = 11 = 1 orientation, 2 facial droop, 1 dysarthria, 1 aphasia, 3 RLE, 3 LLE Lab / Micro Data 05/12/25 11:29 05/12/25 11:29 Labs: Laboratory Results - last 24 hr 05/11/25 10:15: Blood Type AB POSITIVE, Antibody Screen NEGATIVE, Crossmatch SeeDetail 05/12/25 11:29: WBC 7.3, RBC 2.74 L, Hgb 8.3 L, Hct 24.6 L, MCV 89.8, MCH 30.3, MCHC 33.7, RDW Std Deviation 48.1 H, RDW Coeff of Alex 14.8 H, Plt Count 129 L, MPV 10.1, Immature Gran % (Auto) 0.700, Neut % (Auto) 76.4 H, Lymph % (Auto) 10.7 L, Stanly % (Auto) 10.9 H, Eos % (Auto) 1.2, Baso % (Auto) 0.1, Absolute Neuts (auto) 5.5, Absolute Lymphs (auto) 0.78 L, Nucleated RBC % 0, Sodium 137, Potassium 4.0, Chloride 109 H, Carbon Dioxide 19.5 L, Anion Gap 8, BUN 23 H, Creatinine 0.68 L, Estim Creat Clear Calc 51.35, Est GFR (MDRD) Non-Af 85, BUN/Creatinine Ratio 34.0 H, Glucose 168 H, Calcium 7.8 Imaging Radiology Impression Brain MRI 05/11/25 12:05 IMPRESSION: 1. Numerous scattered small foci of acute infarct throughout the bilateral cerebral and cerebellar hemispheres as described, presumably embolic. 2. Background of moderate-advanced chronic small-vessel ischemic changes, with several foci of chronic lacunar infarct mainly involving the left cerebral periventricular white matter. 3. No intracranial hemorrhage, extra-axial collection, or mass-effect. Reading Location: [id number] Echocardiogram 05/11/25 19:18 Interpretation Summary The estimated ejection fraction is 65 %. Stage 2 diastolic dysfunction. The left atrium is mildly enlarged. Stable appearing bioprosthetic aortic valve apparatus. Mean peak gradient 24 mmHg. Mild (1+) tricuspid valve insufficiency. Pulmonary artery systolic pressure is 52 mmHg. Contrast injection was performed. Ordering Physician: Sourav Casiano Performed By: José Manuel Siddiqui and Student Active Medications Active Medications Active Medications: Current Medications Generic Name Dose Route Start Last Admin Trade Name Freq PRN Reason Stop Dose Admin Acetaminophen 650 mg 05/07/25 15:28 05/11/25 07:54 Acetaminophen 325 Mg Tablet PO 650 mg Q6H PRN PRN Administration Pain 1-10 Or Fever >100.7 Apixaban 5 mg 05/10/25 10:00 05/12/25 08:11 Apixaban 5 Mg Tablet PO 5 mg BID ROBE Administration Aspirin 81 mg 05/08/25 08:00 05/12/25 08:10 Aspirin 81 Mg Tab.Chew PO 81 mg BREAKFAST ROBE Administration Atorvastatin Calcium 40 mg 05/07/25 22:00 05/11/25 21:30 Atorvastatin Calcium 40 Mg Tablet PO Not Given QHS ROBE Brimonidine Tartrate 1 drp 05/07/25 22:00 05/12/25 08:12 Brimonidine 0.2% 5ml Bottle EACH EYE 1 drp BID ROBE Administration Calcium Carbonate 500 mg 05/09/25 12:00 05/12/25 12:28 Calcium Carbonate 500 Mg Tablet PO Not Given [facility] Carvedilol 12.5 mg 05/07/25 17:00 05/12/25 08:10 Carvedilol 12.5 Mg Tablet PO 12.5 mg BIDCM ROBE Administration Protocol Dorzolamide/Timolol 1 drp 05/07/25 22:00 05/12/25 08:11 Dorzolamide Hcl/Timolol 10 Ml Bottle EACH EYE 1 drp BID ROBE Administration Hydralazine HCl 5 mg 05/12/25 09:41 Hydralazine 20 Mg/Ml Vial IV 05/13/25 09:41 Q30M PRN maintain BP parameters with HR <60 Hydromorphone HCl 0.5 mg 05/10/25 12:43 Hydromorphone 0.5 Mg/0.5 Ml Syringe IV Q3H PRN PRN Pain Score 6-10 Sodium Chloride 250 mls @ 15 mls/hr 05/09/25 15:53 IV .[id number] PRN Additional IVPB Infusion Labetalol HCl 10 - 20 mg 05/12/25 09:41 Labetalol 20 Mg/4 Ml Vial IV 05/13/25 09:41 Q10M PRN PRN maintain BP parameters with HR >/=60 Latanoprost 1 drp 05/07/25 22:00 05/11/25 21:30 Latanoprost 0.005% 1 Bottle OPHTHALMIC 1 drp QHS ROBE Administration Losartan Potassium 25 mg 05/08/25 10:00 05/12/25 08:11 Losartan Potassium 25 Mg Tablet PO 25 mg DAILY ROBE Administration Protocol Ondansetron HCl 4 mg 05/07/25 15:28 Ondansetron 4 Mg/2 Ml Vial IV Q8H PRN PRN NAUSEA/VOMITING Oxycodone HCl 5 mg 05/10/25 12:43 Oxycodone 5 Mg Tablet PO Q4H PRN PRN Pain Score 4-10 Senna/Docusate Sodium 2 tablet 05/07/25 22:00 05/12/25 08:11 Senna/Docusate Sodium 1 Tablet PO 2 tablet BID ROBE Administration Sodium Chloride 10 - 40 ml 05/07/25 16:06 05/11/25 17:33 0.9% Saline Lock 10 Ml Syringe IV 10 ml UD PRN Administration SALINE FLUSH Sodium Chloride 10 - 40 ml 05/09/25 15:53 0.9% Saline Lock 10 Ml Syringe IV UD PRN SALINE FLUSH Temazepam 30 mg 05/07/25 22:00 05/09/25 21:48 Temazepam 15 Mg Capsule PO 30 mg QHS PRN Administration SLEEP NIHSS NIHSS Nursing Documentation NIHSS Nursing Documentation: NIHSS: Ischemic Stroke/TIA Start: 05/12/25 09:41 Freq: [id number] Status: Active Protocol: Activity Type Activity Date Activity User E-sign Co-sign Detail Recorded Client Recorded Date Recorded By Document 05/12/25 12:32 [facility] [id number] 05/12/25 12:41 [facility] 05/12/25 12:32 NIH Stroke Scale [NIHSS] A score of 0 is "normal" or asymptomatic . Total possible score is 42. Inpatient: RN or Physician to activate a stroke alert for onset of new stroke symptoms or with NIHSS increase >/= 3 points. Following change in neurological status, NIHSS will be performed per physician order or more frequently PRN. -1a. Level of Consciousness 0 - Alert; keenly responsive -1b. LOC Questions 2 - Answers NEITHER question correctly -1c. LOC Commands 0 - Performs BOTH tasks correctly -2. Best Gaze 0 - Normal -3. Visual 0 - No visual loss -4. Facial Palsy 1 - Minor paralysis ( flattened nasolabial fold , asymmetry on smiling) -5a. Left Arm 0 - No drift; arm holds 90 ( or 45) degrees for full 10 seconds -5b. Right Arm 0 - No drift; arm holds 90 ( or 45) degrees for full 10 seconds -6a. Left Leg 0 - No drift; leg holds 30- degree position for full 5 seconds -6b. Right Leg 2 - Some effort against gravity; -7. Limb Ataxia 1 - Present in 1 limb -8. Sensory 0 - Normal; no sensory loss -9. Best Language 1 - Mild-to- moderate aphasia; -10. Dysarthria 1 = Mild-to- moderate dysarthria; -11. Extinction and Inattention 0 - No abnormality -Total 8 Query Text:A score of 0 is "normal" or asymptomatic. Total possible score is 42 . ED: Notify Physician for NIHSS increase by > / = 3 points. Inpatient: RN or Physician to activate a stroke alert for NIHSS increase of > / = 3 points. 05/12/25 132 <Electronically signed by Deann Santana MD> Cosigner Signature (if applicable): CC: Dr. Eh Huddleston MD~ Signed [facility] Work Phone: [phone] 624-109407-16-2025 Progress note Author Alice Pathak [facility] Note Date/Time May 12, 2025 12:2 5pm [facility] Medical Records Department [address] [place] [address] Progress Note - Orthopedic 05/12/25 1212 MR#: [id number] Acct: [id number] Name: GOGO WARE p #:[id number] : 1940 85 From: Alice DOW PCP: Dr. Eh Huddleston MD Status:ADM I N Location: [place] [address] Subjective Subjective Patient is an 85-year-old female status post left femur open reduction internal fixation with Dr. Livingston 05/09/2025. Patient's pain has a seemingly been well-controlled. patient was found to have embolic stroke after STAT MRI yesterday. she has been moved to U and evaluated by neurology. The dressing remains dry on the left femur with no significant ecchymosis or hematoma formation. Hemaglobin improved at 8.3. medicine d/c'd ABX yesterday.. Objective Data Objective Data Vital Signs: Vital Signs Temp Pulse Resp BP Pulse Ox O2 Del Method 97.0 F L 73 16 111/44 L 98 Room Air 05/12/25 09:41 05/12/25 09:41 05/12/25 09:41 05/12/25 09:41 05/12/25 09:41 05/12/25 09:41 Oxygen Delivery Method Room Air Weight: 75.6 kg Body Mass Index (BMI) 27.3 Intake & Output: Intake and Output for Last 24 Hours 05/10/25 05/11/25 05/12/25 23:59 23:59 23:59 Intake Total 1337.08 / 1437.08 3265.00 / 3265.00 1000 / 1000 Output Total 200 / 200 1100 / 1900 1150 / 1150 Balance 1137.08 / 1237.08 2165.00 / 1365.00 -150 / -150 Lab / Micro Data 05/12/25 11:29 07/12/25 05:45 Labs: Laboratory Results - last 24 hr 05/11/25 10:15: Blood Type AB POSITIVE, Antibody Screen NEGATIVE, Crossmatch SeeDetail 05/12/25 11:29: WBC 7.3, RBC 2.74 L, Hgb 8.3 L, Hct 24.6 L, MCV 89.8, MCH 30.3, MCHC 33.7, RDW Std Deviation 48.1 H, RDW Coeff of Alex 14.8 H, Plt Count 129 L, MPV 10.1, Immature Gran % (Auto) 0.700, Neut % (Auto) 76.4 H, Lymph % (Auto) 10.7 L, Stanly % (Auto) 10.9 H, Eos % (Auto) 1.2, Baso % (Auto) 0.1, Absolute Neuts (auto) 5.5, Absolute Lymphs (auto) 0.78 L, Nucleated RBC % 0 Radiography Diagnostic Testing: Radiology Impression Brain MRI 05/11/25 12:05 IMPRESSION: 1. Numerous scattered small foci of acute infarct throughout the bilateral cerebral and cerebellar hemispheres as described, presumably embolic. 2. Background of moderate-advanced chronic small-vessel ischemic changes, with several foci of chronic lacunar infarct mainly involving the left cerebral periventricular white matter. 3. No intracranial hemorrhage, extra-axial collection, or mass-effect. Reading Location: [facility] Physical Exam Narrative spontaneously awake and responsive A&Ox1 to self follows commands x 4 able to lift both arms above head and wiggle toes left sided facial droop left pupil ERRL minimally reponsive to deep stim SILT to bilateral upper and bilateral lower extremities dressing over left femur c/d/i No ecchymosis noted. Compartments are soft and compressible. brisk cap refill to toes. Assessment & Plan Assessment/Plan (1) Femoral distal fracture: QUALIFIERS: Encounter type: initial encounter Fracture type: closed Laterality: left PLAN: PLAN: POD# 3 s/p left femur ORIF - stroke management per primary - hemoglobin improved to 8.3. defer to medicine for further management. - Pain control - PT/OT -nonweightbearing left lower extremityx 6 weeks, active range of motion as tolerated left knee and hip. - DVT PPX -restart home Eliquis x 6 weeks and early mobilization. ultimately will defer anticoagulation to primary in setting of embolic stroke. -ortho will sign off at this time. - patient is to follow up in 2 weeks in the office .this will need to be arranged. - ok to d/c dressing in 1 week. lakeisha remain x 2 week. 05/12/25 1225 <Electronically signed by Alice DOW> Cosigner Signature (if applicable): CC: ~ Signed [facility] Work Phone: [phone] Consult note [facility] Medical Records Department [address] [place] [address] Consultation - Neurology 05/12/25 1318 MR#: [id number] Acct: [id number] Name: GOGO WARE p #:[id number] : 1940 85 From: Deann Santana MD PCP: Dr. 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 Neurovascular consulted after patient was evaluated for L facial droop (chronic), and altered mentation post op and was found to have acute ischemia on MRI. Numerous Scattered Small Acute Stroke in BL Cerebral and Cerebellar Hemispheres Etiology: Cryptogenic, ESUS CT/CTA completed. CTH showed prior periventricular L lacunar stroke but otherwise non acute; CTA showed bilateral ICAD without severe flow limiting stenosis or occlusion. TTE pending Please obtain LDL, A1C Patient is already on Eliquis for VTE history, and on ASA (prior to hospitalize Plavix per chart review) for CAD/TAVR. She is planned to continue these at discharge. As she is already on AC/AP therapy, would not add additional AC/AP tothis regimen. Start high intensity statin Would recommend quality assurance monitor/30-day event monitor at discharge Would recommend vascular risk factor modification LDL Goal < 70 Smoking Cessation Diabetes Management skilled nursing blood pressure control should achieve <130/80 mmHg. BP managementshould aim to achievelong term contorl in a reasonable amount of time, taking into consideration the individual patient's requirements and characteristics. Weight Management: Goal for BMI is 18.5 -24.9 kg/m2 Alcohol: No more than 2 drinks/day for men or 1 drink/day for non- women Promote lifestyle modification: weight control, physical activity, moderation of alcohol intake, moderate sodium intake. 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 Ensure PCP follow up in 1- 2 weeks.Cardiology follow up as needed. 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 Per chart review post operatively on 05/10 patient was noted by team to have dysarthria and L facialdroop for which CTH/CTA obtained. On review of imaging, CTH showed prior periventricular L lacunar stroke but otherwise non acute; CTA showed bilateral ICAD without severe flow limiting stenosis or occlusion. Strokealert cancelled after family reported L facial droop was chronic. Subsequently on 05/11 had continued AMS and underwent MRI which showed bilateral shower of embolic appearing infarcts in the BL cerebral hemispheres. On evaluation today patient is alert and is coherent. She is perseverating on her words and has mild aphasia. She is able to follow all simple commands, but has difficulty with complex 2-3 step commands. She is confused and only orientedto self. She seems genuinely surprised to learn she is in the hospital and had hip surgery. She is very pleasant and calm. No agitation. BLUE move antigravity without drift. BLLE she is able to wiggle toes but not lift antigravity. 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 Essential hypertension Seborrheic keratosis Generalized weakness Fall Home Medications ?Medication ?Instructions ?Recorded ?Last Taken ?Type brimonidine 0.2 % eye drops 2 drp EACH EYE BID glaucom a 11/25/17 11/25/17 History dorzolamide 22.3 mg-timolol 6.8 1 drp EACH EYE BID gla ucoma 11/25/17 11/25/17 History mg/mL eye drops latanoprost 0.005 % eye drops 1 drp ophthalmic (eye) Q PM 12/17/19 Unknown History carvedilol 12.5 mg tablet 12.5 mg PO BID #180 tabs 05/21 Unknown Rx apixaban 5 mg tablet (Eliquis) 5 mg PO BID 05/07/25 Un known History clopidogrel 75 mg tablet 75 mg PO DAILY 05/07/25 Unkn own History temazepam 30 mg capsule 30 mg PO DAILY 05/07/25 Unkn own History valsartan 160 mg tablet 80 mg PO DAILY 05/07/25 Unkn own History Allergy/AdvReac Type Severity Reaction Status Date / Time No Known Allergies Allergy Verified 03/16/24 14:09 Family History Father Diabetes Grandmother Colon cancer Surgical History History of left heart catheterization (LHC) (~12/27/17) History of bilateral hip replacements Social History Smoking Status: Never smoker alcohol intake: current alcohol intake frequency: holidays/special occasions only Alcohol type: wine substance use type: does not use caffeine: Yes Type: coffee what type of physical activity do you participate in: none seatbelt use: always do you feel safe at home: Yes Vital Signs Vital Signs Vital Signs: 05/11/25 13:33 05/11/25 13:54 05/11/25 14:49 Temperature 98 F 97.3 F L Temperature Source Temporal Temporal Pulse Rate 79 82 Pulse Strength Respiratory Rate 18 18 Respiratory Effort Normal Non-Labored Respiratory Depth Normal Respiratory Pattern Normal Blood Pressure 124/47 H 114/49 L Blood Pressure Mean 72 70 Blood Pressure Source Monitor Blood Pressure Position Semi-Fowlers Semi-Fowlers Blood Pressure Location Left Arm Left Arm Pulse Ox 98 98 Oxygen Delivery Method Room Air Room Air 05/11/25 14:54 05/11/25 15:54 05/11/25 17:38 Temperature 97.1 F L 97.2 F L 98.4 F Temperature Source Temporal Temporal Temporal Pulse Rate 79 78 81 Pulse Strength Respiratory Rate 18 18 16 Respiratory Effort Respiratory Depth Respiratory Pattern Blood Pressure 107/64 127/48 H 117/54 L Blood Pressure Mean 78 74 75 Blood Pressure Source Monitor Monitor Monitor Blood Pressure Position Semi-Fowlers Semi-Fowlers Semi-Fowlers Blood Pressure Location Left Arm Left Arm Left Arm Pulse Ox 99 97 97 Oxygen Delivery Method Room Air Room Air Room Air 05/11/25 17:53 05/11/25 18:53 05/11/25 19:46 Temperature 98.1 F 97.6 F L 98.4 F Temperature Source Temporal Temporal Temporal Pulse Rate 84 79 76 Pulse Strength Respiratory Rate 18 18 18 Respiratory Effort Respiratory Depth Respiratory Pattern Blood Pressure 113/49 L 127/47 H 129/49 H Blood Pressure Mean 70 73 75 Blood Pressure Source Monitor Monitor Monitor Blood Pressure Position Semi-Fowlers Semi-Fowlers Semi-Fowlers Blood Pressure Location Left Arm Left Arm Left Arm Pulse Ox 99 98 97 Oxygen Delivery Method Room Air Room Air Room Air 05/11/25 20:42 05/11/25 21:27 05/12/25 00:06 Temperature 98.4 F Temperature Source Temporal Pulse Rate 77 Pulse Strength Normal (2+) Respiratory Rate 16 Respiratory Effort Normal Non-Labored Respiratory Depth Normal Respiratory Pattern Normal Blood Pressure 128/48 H Blood Pressure Mean 74 Blood Pressure Source Monitor Blood Pressure Position Semi-Fowlers Blood Pressure Location Left Arm Pulse Ox 97 Oxygen Delivery Method Room Air Room Air 05/12/25 00:12 05/12/25 02:12 05/12/25 02:16 Temperature 98.9 F 97.9 F Temperature Source Temporal Temporal Pulse Rate 77 77 Pulse Strength Respiratory Rate 16 18 Respiratory Effort Respiratory Depth Respiratory Pattern Blood Pressure 130/58 H 126/62 H Blood Pressure Mean 82 83 Blood Pressure Source Monitor Monitor Blood Pressure Position Semi-Fowlers Semi-Fowlers Blood Pressure Location Left Arm Left Arm Pulse Ox 97 98 Oxygen Delivery Method Room Air Room Air Room Air 05/12/25 04:03 05/12/25 05:55 05/12/25 08:02 Temperature 98.9 F 99.0 F Temperature Source Temporal Oral Pulse Rate 71 75 Pulse Strength Normal (2+) Respiratory Rate 16 16 Respiratory Effort Respiratory Depth Respiratory Pattern Blood Pressure 142/53 H 143/59 H Blood Pressure Mean 82 87 Blood Pressure Source Monitor Monitor Blood Pressure Position Semi-Fowlers Semi-Fowlers Blood Pressure Location Left Arm Left Arm Pulse Ox 97 97 Oxygen Delivery Method Room Air Room Air 05/12/25 08:03 05/12/25 08:18 05/12/25 09:41 Temperature 98.5 F 97.0 F L Temperature Source Temporal Temporal Pulse Rate 79 73 Pulse Strength Respiratory Rate 18 16 Respiratory Effort Normal Non-Labored Respiratory Depth Normal Respiratory Pattern Normal Blood Pressure 128/52 H 111/44 L Blood Pressure Mean 77 66 Blood Pressure Source Monitor Monitor Blood Pressure Position Semi-Fowlers Semi-Fowlers Blood Pressure Location Left Arm Left Arm Pulse Ox 98 98 Oxygen Delivery Method Room Air Room Air Room Air Weight Weight: 75.6 kg Body Mass Index (BMI) 27.3 EEG Results Procedure Details EEG Procedure Details: GOGO WARE is a 85 year old F with a past medical history of, who presents for evaluation of Electroencephalogram on DATE at TIME Physical Exam Narrative Exam: Alert and oriented to self only EOMI, L facial droop Mild dysarthria and aphasia Following commands BLUE antigravity without drift BLLE wiggles toes FTN intact NIHSS = 11 = 1 orientation, 2 facial droop, 1 dysarthria, 1 aphasia, 3 RLE, 3 LLE Lab / Micro Data 05/12/25 11:29 05/12/25 11:29 Labs: Laboratory Results - last 24 hr 05/11/25 10:15: Blood Type AB POSITIVE, Antibody Screen NEGATIVE, Crossmatch SeeDetail 05/12/25 11:29: WBC 7.3, RBC 2.74 L, Hgb 8.3 L, Hct 24.6 L, MCV 89.8, MCH 30.3, MCHC 33.7, RDW Std Deviation 48.1 H, RDW Coeff of Alex 14.8 H, Plt Count 129 L, MPV 10.1, Immature Gran % (Auto) 0.700, Neut % (Auto) 76.4 H, Lymph % (Auto) 10.7 L, Stanly % (Auto) 10.9 H, Eos % (Auto) 1.2, Baso % (Auto) 0.1, Absolute Neuts (auto) 5.5, Absolute Lymphs (auto) 0.78 L, Nucleated RBC % 0, Sodium 137, Potassium 4.0, Chloride 109 H, Carbon Dioxide 19.5 L, Anion Gap 8, BUN 23 H, Creatinine 0.68 L, Estim CreatClear Calc 51.35, Est GFR (MDRD) Non-Af 85, BUN/Creatinine Ratio 34.0 H, Glucose 168 H, Calcium 7.8 Imaging Radiology Impression Brain MRI 05/11/25 12:05 IMPRESSION: 1. Numerous scattered small foci of acute infarct throughout the bilateral cerebral and cerebellar hemispheres as described, presumably embolic. 2. Background of moderate-advanced chronic small-vessel ischemic changes, with several foci of chronic lacunar infarct mainly involving the left cerebral periventricular white matter. 3. No intracranial hemorrhage, extra-axial collection, or mass-effect. Reading Location: [facility] Echocardiogram 05/11/25 19:18 Interpretation Summary The estimated ejection fraction is 65 %. Stage 2 diastolic dysfunction. The left atrium is mildly enlarged. Stable appearing bioprosthetic aortic valve apparatus. Mean peak gradient 24 mmHg. Mild (1+) tricuspid valve insufficiency. Pulmonary artery systolic pressure is 52 mmHg. Contrast injection was performed. Ordering Physician: Sourav Casiano Performed By: José Manuel Siddiqui and Student Active Medications Active Medications Active Medications: Current Medications Generic Name Dose Route Start Last Admin Trade Name Freq PRN Reason Stop Dose Admin Acetaminophen 650 mg 05/07/25 15:28 05/11/25 07:54 Acetaminophen 325 Mg Tablet PO 650 mg Q6H PRN PRN Administration Pain 1-10 Or Fever >100.7 Apixaban 5 mg 05/10/25 10:00 05/12/25 08:11 Apixaban 5 Mg Tablet PO 5 mg BID ROBE Administration Aspirin 81 mg 05/08/25 08:00 05/12/25 08:10 Aspirin 81 Mg Tab.Chew PO 81 mg BREAKFAST ROBE Administration Atorvastatin Calcium 40 mg 05/07/25 22:00 05/11/25 21:30 Atorvastatin Calcium 40 Mg Tablet PO Not Given QHS ROBE Brimonidine Tartrate 1 drp 05/07/25 22:00 05/12/25 08:12 Brimonidine 0.2% 5ml Bottle EACH EYE 1 drp BID ROBE Administration Calcium Carbonate 500 mg 05/09/25 12:00 05/12/25 12:28 Calcium Carbonate 500 Mg Tablet PO Not Given TIDCM ROBE Carvedilol 12.5 mg 05/07/25 17:00 05/12/25 08:10 Carvedilol 12.5 Mg Tablet PO 12.5 mg BIDCM ROBE Administration Protocol Dorzolamide/Timolol 1 drp 05/07/25 22:00 05/12/25 08:11 Dorzolamide Hcl/Timolol 10 Ml Bottle EACH EYE 1 drp BID ROEB Administration Hydralazine HCl 5 mg 05/12/25 09:41 Hydralazine 20 Mg/Ml Vial IV 05/13/25 09:41 Q30M PRN maintain BP parameters with HR <60 Hydromorphone HCl 0.5 mg 05/10/25 12:43 Hydromorphone 0.5 Mg/0.5 Ml Syringe IV Q3H PRN PRN Pain Score 6-10 Sodium Chloride 250 mls @ 15 mls/hr 05/09/25 15:53 IV .[id number] PRN Additional IVPB Infusion Labetalol HCl 10 - 20 mg 05/12/25 09:41 Labetalol 20 Mg/4 Ml Vial IV 05/13/25 09:41 Q10M PRN PRN maintain BP parameters with HR >/=60 Latanoprost 1 drp 05/07/25 22:00 05/11/25 21:30 Latanoprost 0.005% 1 Bottle OPHTHALMIC 1 drp QHS ROBE Administration Losartan Potassium 25 mg 05/08/25 10:00 05/12/25 08:11 Losartan Potassium 25 Mg Tablet PO 25 mg DAILY ROBE Administration Protocol Ondansetron HCl 4 mg 05/07/25 15:28 Ondansetron 4 Mg/2 Ml Vial IV Q8H PRN PRN NAUSEA/VOMITING Oxycodone HCl 5 mg 05/10/25 12:43 Oxycodone 5 Mg Tablet PO Q4H PRN PRN Pain Score 4-10 Senna/Docusate Sodium 2 tablet 05/07/25 22:00 05/12/25 08:11 Senna/Docusate Sodium 1 Tablet PO 2 tablet BID ROBE Administration Sodium Chloride 10 - 40 ml 05/07/25 16:06 05/11/25 17:33 0.9% Saline Lock 10 Ml Syringe IV 10 ml UD PRN Administration SALINE FLUSH Sodium Chloride 10 - 40 ml 05/09/25 15:53 0.9% Saline Lock 10 Ml Syringe IV UD PRN SALINE FLUSH Temazepam 30 mg 05/07/25 22:00 05/09/25 21:48 Temazepam 15 Mg Capsule PO 30 mg QHS PRN Administration SLEEP NIHSS NIHSS Nursing Documentation NIHSS Nursing Documentation: NIHSS: Ischemic Stroke/TIA Start: 05/12/25 09:41 Freq: [id number] Status: Active Protocol: Activity Type Activity Date Activity User E-sign Co-sign Detail Recorded Client Recorded Date Recorded By Document 05/12/25 12:32 [facility] [id number] 05/12/25 12:41 [facility] 05/12/25 12:32 NIH Stroke Scale [NIHSS] A score of 0 is "normal" or asymptomatic . Total possible score is 42. Inpatient: RN or Physician to activate a stroke alert for onset of new stroke symptoms or with NIHSS increase >/= 3 points. Following change in neurological status, NIHSS will be performed per physician order or more frequently PRN. -1a. Level of Consciousness 0 - Alert; keenly responsive -1b. LOC Questions 2 - Answers NEITHER question correctly -1c. LOC Commands 0 - Performs BOTH tasks correctly -2. Best Gaze 0 - Normal -3. Visual 0 - No visual loss -4. Facial Palsy 1 - Minor paralysis ( flattened nasolabial fold , asymmetry on smiling) -5a. Left Arm 0 - No drift; arm holds 90 ( or 45) degrees for full 10 seconds -5b. Right Arm 0 - No drift; arm holds 90 ( or 45) degrees for full 10 seconds -6a. Left Leg 0 - No drift; leg holds 30- degree position for full 5 seconds -6b. Right Leg 2 - Some effort against gravity; -7. Limb Ataxia 1 - Present in 1 limb -8. Sensory 0 - Normal; no sensory loss -9. Best Language 1 - Mild-to- moderate aphasia; -10. Dysarthria 1 = Mild-to- moderate dysarthria; -11. Extinction and Inattention 0 - No abnormality -Total 8 Query Text:A score of 0 is "normal" or asymptomatic. Total possible score is 42 . ED: Notify Physician for NIHSS increase by > / = 3 points. Inpatient: RN or Physician to activate a stroke alert for NIHSS increase of > / = 3 points. 05/12/25 1324 Cosigner Signature (if applicable): CC: Dr. Eh Huddleston MD~ Signed [facility]07-16-2025 Progress note [facility] Medical Records Department [address] [place] [address] Progress Note - Orthopedic 05/12/25 1212 MR#: [id number] Acct: [id number] Name: GOGO WARE p #:[id number] : 1940 85 From: Alice DOW PCP: Dr. Eh Huddleston MD Status:ADM I N Location: [place] [address] Subjective Subjective Patient is an 85-year-old female status post left femur open reduction internal fixation with Dr. Livingston 05/09/2025. Patient's pain has a seemingly been well- controlled. patient was found to have embolic stroke after STAT MRI yesterday. she has been moved to U and evaluated by neurology. The dressing remains dry on the left femur with no significant ecchymosis or hematoma formation. Hemaglobin improved at 8.3. medicine d/c'd ABX yesterday.. Objective Data Objective Data Vital Signs: Vital Signs Temp Pulse Resp BP Pulse Ox O2 Del Method 97.0 F L 73 16 111/44 L 98 Room Air 05/12/25 09:41 05/12/25 09:41 05/12/25 09:41 05/12/25 09:41 05/12/25 09:41 05/12/25 09:41 Oxygen Delivery Method Room Air Weight: 75.6 kg Body Mass Index (BMI) 27.3 Intake & Output: Intake and Output for Last 24 Hours 05/10/25 05/11/25 05/12/25 23:59 23:59 23:59 Intake Total 1337.08 / 1437.08 3265.00 / 3265.00 1000 / 1000 Output Total 200 / 200 1100 / 1900 1150 / 1150 Balance 1137.08 / 1237.08 2165.00 / 1365.00 -150 / -150 Lab / Micro Data 05/12/25 11:29 05/08/25 05:45 Labs: Laboratory Results - last 24 hr 05/11/25 10:15: Blood Type AB POSITIVE, Antibody Screen NEGATIVE, Crossmatch SeeDetail 05/12/25 11:29: WBC 7.3, RBC 2.74 L, Hgb 8.3 L, Hct 24.6 L, MCV 89.8, MCH 30.3, MCHC 33.7, RDW Std Deviation 48.1 H, RDW Coeff of Alex 14.8 H, Plt Count 129 L, MPV 10.1, Immature Gran % (Auto) 0.700, Neut % (Auto) 76.4 H, Lymph % (Auto) 10.7 L, Stanly % (Auto) 10.9 H, Eos % (Auto) 1.2, Baso % (Auto) 0.1, Absolute Neuts (auto) 5.5, Absolute Lymphs (auto) 0.78 L, Nucleated RBC % 0 Radiography Diagnostic Testing: Radiology Impression Brain MRI 05/11/25 12:05 IMPRESSION: 1. Numerous scattered small foci of acute infarct throughout the bilateral cerebral and cerebellar hemispheres as described, presumably embolic. 2. Background of moderate-advanced chronic small-vessel ischemic changes, with several foci of chronic lacunar infarct mainly involving the left cerebral periventricular white matter. 3. No intracranial hemorrhage, extra-axial collection, or mass-effect. Reading Location: [facility] Physical Exam Narrative spontaneously awake and responsive A&Ox1 to self follows commands x 4 able to lift both arms above head and wiggle toes left sided facial droop left pupil ERRL minimally reponsive to deep stim SILT to bilateral upper and bilateral lower extremities dressing over left femur c/d/i No ecchymosis noted. Compartments are soft and compressible. brisk cap refill to toes. Assessment & Plan Assessment/Plan (1) Femoral distal fracture: QUALIFIERS: Encounter type: initial encounter Fracture type: closed Laterality: left PLAN: PLAN: POD# 3 s/p left femur ORIF - stroke management per primary - hemoglobin improved to 8.3. defer to medicine for further management. - Pain control - PT/OT -nonweightbearing left lower extremityx 6 weeks, active range of motion as tolerated left knee and hip. - DVT PPX -restart home Eliquis x 6 weeks and early mobilization. ultimately will defer anticoagulation to primary in setting of embolic stroke. -ortho will sign off at this time. - patient is to follow up in 2 weeks in the office .this will need to be arranged. - ok to d/c dressing in 1 week. lakeisha remain x 2 week. 05/12/255 Cosigner Signature (if applicable): CC: ~ Signed [facility]07-15-2025 Progress note Author [facility] Note Date/Time May 11, 2025 7:20 pm [facility] Medical Records Department [address] [place] [address] Progress Note - Hospitalist 05/11/251914 MR#: [id number] Acct: [id number] Name: GOGO WARE Heidi p #:[id number] : 1940 85 From: Sourav Casiano DO PCP: Dr. Eh Huddleston MD Status:ADM I N Location: [place] [address] Hospitalist Note MRI of the brain was performed today, it showed multiple acute small strokes felt to be embolic in nature, I will have teleneurology see the patient tomorrow. I have made the decision to stop the patient's antibiotics at this time. Patient remains on a statin and Eliquis at this time. 05/11/251919 <Electronically signed by Sourav Casiano DO> Cosigner Signature (if applicable): CC: ~ Signed [facility] Work Phone: [phone] [id number] Progress note [facility] Medical Records Department [address] [place] [address] Progress Note - Hospitalist 05/11/251914 MR#: [id number] Acct: [id number] Name: GOGO WARE p #:[id number] : 1940 85 From: Sourav Casiano DO PCP: Dr. Eh Huddleston MD Status:ADM I N Location: [facility] [id number] Hospitalist Note MRI of the brain was performed today, it showed multiple acute small strokes felt to be embolic in nature, I will have teleneurology see the patient tomorrow. I have made the decision to stop the patient's antibiotics at this time. Patient remains on a statin and Eliquis at this time. 05/11/251919 Cosigner Signature (if applicable): CC: ~ Signed [facility]07-15-2025 Progress note Author Alice Pathka [facility] Note Date/Time May 11, 2025 4:17 pm [facility] Medical Records Department [address] [place] [address] Progress Note - Orthopedic 05/11/25 1609 MR#: [id number] Acct: [id number] Name: GOGO WARE p #:[id number] : 1940 85 From: Alice DOW PCP: Dr. Eh Huddleston MD Status:ADM I N Location: [facility] [id number] Subjective Subjective Patient is an 85-year-old female status post left femur open reduction internal fixation with Dr. Livingston 05/09/2025. Patient's pain has a seemingly been well-controlled. Yesterday the stroke team was called due to a left sided facial droop however after speaking with family or friends they felt that this was stable so the hospitalist canceled the stroke alert. CT scans were obtained which did not reveal any acute stroke or acute intracranial abnormality. Upon evaluation this morning patient became unresponsive with worsening slurred speech and weakness. Patient was evaluated by the nurse and hospitalist who sent her for a stat MRI. The dressing remains dry on the left femur with no significant ecchymosis or hematoma formation. Hemaglobin dropped to 6.3. hospitalist did start ABX and ruling out UTI after a slight elevation in leukocytes. she remains afebrile. Objective Data Objective Data Vital Signs: Vital Signs Temp Pulse Resp BP Pulse Ox O2 Del Method 97.2 F L 78 18 127/48 H 97 Room Air 05/11/25 15:54 05/11/25 15:54 05/11/25 15:54 05/11/25 15:54 05/11/25 15:54 05/11/25 15:54 Oxygen Delivery Method Room Air Weight: 75.6 kg Body Mass Index (BMI) 27.3 Intake & Output: Intake and Output for Last 24 Hours 05/09/25 05/10/25 05/11/25 23:59 23:59 23:59 Intake Total 890 / 890 1337.08 / 1437.08 2593.75 / 2593.75 Output Total 1275 / 1475 200 / 200 1100 / 1100 Balance -385 / -585 1137.08 / 1237.08 1493.75 / 1493.75 Lab / Micro Data 05/11/25 09:15 05/08/25 05:45 Labs: Laboratory Results - last 24 hr 05/07/25 18:36: Crossmatch See Detail 05/10/25 15:51: WBC 14.4 H, RBC 2.53 L, Hgb 7.9 L, Hct 23.2 L, MCV 91.7, MCH 31.2, MCHC 34.1, RDW Std Deviation 46.9 H, RDW Coeff of Alex 14.0, Plt Count 127 L, MPV 10.9, Immature Gran % (Auto) 0.300, Neut % (Auto) 80.2 H, Lymph % (Auto) 6.5 L, Stanly % (Auto) 12.8 H, Eos % (Auto) 0.1, Baso % (Auto) 0.1, Absolute Neuts(auto) 11.5 H, Absolute Lymphs (auto) 0.93, Nucleated RBC % 0, Differential Comment SCANNED, Platelet Estimate SLT DEC, Troponin T High Sens 36 H 05/10/25 18:33: Troponin T Hi Sens 2 Hr 36 H 05/10/25 20:28: Troponin T Hi Sens 4Hr 34 H 05/11/25 03:35: Urine Color Yellow, Urine Clarity Clear, Urine pH 5.0, Ur Specific Pomfret 1.020, Urine Protein 15 H, Urine Glucose (UA) Normal, Urine Ketones Negative, Urine Occult Blood 25 H, Urine Nitrite Negative, Urine Bilirubin Negative, Urine Urobilinogen Normal, Ur Leukocyte Esterase Negative, Urine RBC 0-5 SEEN, Urine WBC 0-5 SEEN, Ur Squamous Epith Cells 0-5 SEEN, Urine Bacteria 2+, Urine Mucus 0 SEEN 05/11/25 06:16: WBC Cancelled, Corrected WBC Cancelled, RBC Cancelled, Hgb Cancelled, Hct Cancelled, MCV Cancelled, MCH Cancelled, MCHC Cancelled, RDW Std Deviation Cancelled, RDW Coeff of Alex Cancelled, Plt Count Cancelled, MPV Cancelled, Immature Gran % (Auto) Cancelled, Neut % (Auto) Cancelled, Lymph % (Auto) Cancelled, Stanly % (Auto) Cancelled, Eos % (Auto) Cancelled, Baso % (Auto)Cancelled, Absolute Neuts (auto) Cancelled, Absolute Lymphs (auto) Cancelled, Total Counted Cancelled, Neutrophils % (Manual) Cancelled, Band Neutrophils % Cancelled, Lymphocytes % (Manual) Cancelled, Monocytes % (Manual) Cancelled, Eosinophils % (Manual) Cancelled, Basophils % (Manual) Cancelled, Metamyelocytes% Cancelled, Myelocytes % Cancelled, Promyelocytes % Cancelled, Blast Cells % Cancelled, Plasma Cell % (Manual) Cancelled, Other Cells % Cancelled, Nucleated RBC % Cancelled, Nucleated RBCs/100 WBC Cancelled, Differential Comment Cancelled, Diff Path Review Cancelled, Hypersegmented Neuts Cancelled, Atypical Lymphocytes Cancelled, Reactive Lymphocytes Cancelled, Smudge Cells Cancelled, Toxic Granulation Cancelled, Toxic Vacuolation Cancelled, Dohle Bodies Cancelled, Sarah Rods Cancelled, Platelet Estimate Cancelled, Plt Morphology Comment Cancelled, RBC Morphology Cancelled 05/11/25 06:16: RBC Morphology Cancelled, Polychromasia Cancelled, HypochromasiaCancelled, Basophilic Stippling Cancelled, Anisocytosis Cancelled, Microcytosis Cancelled, Macrocytosis Cancelled, Spherocytes Cancelled, Sickle Cells Cancelled, Target Cells Cancelled, Tear Drop Cells Cancelled, Ovalocytes Cancelled, Stomatocytes Cancelled, Arredondo-Mcgrew Bodies Cancelled, Sharifa Cells Cancelled, Bite Cells Cancelled, Crenated Cell Cancelled, Acanthocytes (Spur) Cancelled, Rouleaux Cancelled, Schistocytes Cancelled 05/11/25 09:15: WBC 10.3, RBC 2.02 L, Hgb 6.3 L, Hct 18.5 L, MCV 91.6, MCH 31.2,MCHC 34.1, RDW Std Deviation 47.1 H, RDW Coeff of Alex 13.9, Plt Count 114 L, MPV10.7, Immature Gran % (Auto) 0.300, Neut % (Auto) 80.9 H, Lymph % (Auto) 7.8 L, Stanly % (Auto) 10.4 H, Eos % (Auto) 0.5, Baso % (Auto) 0.1, Absolute Neuts (auto)8.4 H, Absolute Lymphs (auto) 0.81 L, Nucleated RBC % 0 05/11/25 10:15: Blood Type AB POSITIVE, Antibody Screen NEGATIVE, Crossmatch SeeDetail Physical Exam Narrative Patient is obtunded. right side neglect, head tilted to the left left sided facial droop left pupil ERRL minimally reponsive to deep stim appears to withdrawl on the right and localizes on the left with upper extremities lower extremities do withdrawl to stim of toes/feet. dressing over left femur c/d/i No ecchymosis noted. Compartments are soft and compressible. brisk cap refill to toes. Assessment & Plan Assessment/Plan (1) Femoral distal fracture: QUALIFIERS: Encounter type: initial encounter Fracture type: closed Laterality: left PLAN: PLAN: POD# 2 s/p left femur ORIF Nurse and hospitalist are aware of patient's mental status they are sending for a stat MRI. This was also reviewed with Dr. Livingston. -Morning H&H 6.3 hospitalist is transfusing. - Pain control - PT/OT -nonweightbearing left lower extremity, active range of motion as tolerated left knee and hip. - DVT PPX -restart home Eliquis and early mobilization -Will need placement. - Case management - D/C planning 05/11/25 1617 <Electronically signed by Alice DOW> Cosigner Signature (if applicable): CC: ~ Signed [facility] Work Phone: [phone] 290-229807-15-2025 Progress note Author Sourav Casiano [facility] Note Date/Time May 11, 2025 3:23 pm [facility] Medical Records Department [address] [place] [address] Progress Note - Hospitalist 05/11/25 1514 MR#: [id number] Acct: [id number] Name: GOGO WARE p #:[id number] : 1940 85 From: Sourav Casiano DO PCP: Dr. Eh Huddleston MD Status:ADM I N Location: [address] Reason for Visit Chief Complaint: Left leg injury, inability to ambulate Subjective Subjective Patient was seen and examined today, she is very somnolent and responds to deep painful stimuli but does not carry on a conversation. I made the decision todayto obtain an MRI of her brain which is pending at the time of this dictation. Patient's white blood cell count today was normal, hemoglobin was low at 6.3-I ordered 2 units of packed red blood cells to be transfused. I talked briefly with the patient's friend by phone today. Objective Data Objective Data Vital Signs: Vital Signs Temp Pulse Resp BP Pulse Ox O2 Del Method 97.1 F L 79 18 107/64 99 Room Air 05/11/25 14:54 05/11/25 14:54 05/11/25 14:54 05/11/25 14:54 05/11/25 14:54 05/11/25 14:54 Oxygen Delivery Method Room Air Weight: 75.6 kg Body Mass Index (BMI) 27.3 Intake & Output: Intake and Output for Last 24 Hours 05/09/25 05/10/25 05/11/25 23:59 23:59 23:59 Intake Total 890 / 890 1337.08 / 1437.08 2193.75 / 2193.75 Output Total 1275 / 1475 200 / 200 1100 / 1100 Balance -385 / -585 1137.08 / 1237.08 1093.75 / 1093.75 Lab / Micro Data 05/11/25 09:15 05/08/25 05:45 Labs: Laboratory Results - last 24 hr 05/07/25 18:36: Crossmatch See Detail 05/10/25 15:51: WBC 14.4 H, RBC 2.53 L, Hgb 7.9 L, Hct 23.2 L, MCV 91.7, MCH 31.2, MCHC 34.1, RDW Std Deviation 46.9 H, RDW Coeff of Alex 14.0, Plt Count 127 L, MPV 10.9, Immature Gran % (Auto) 0.300, Neut % (Auto) 80.2 H, Lymph % (Auto) 6.5 L, Stanly % (Auto) 12.8 H, Eos % (Auto) 0.1, Baso % (Auto) 0.1, Absolute Neuts(auto) 11.5 H, Absolute Lymphs (auto) 0.93, Nucleated RBC % 0, Differential Comment SCANNED, Platelet Estimate SLT DEC, Troponin T High Sens 36 H 05/10/25 18:33: Troponin T Hi Sens 2 Hr 36 H 05/10/25 20:28: Troponin T Hi Sens 4Hr 34 H 05/11/25 03:35: Urine Color Yellow, Urine Clarity Clear, Urine pH 5.0, Ur Specific Pomfret 1.020, Urine Protein 15 H, Urine Glucose (UA) Normal, Urine Ketones Negative, Urine Occult Blood 25 H, Urine Nitrite Negative, Urine Bilirubin Negative, Urine Urobilinogen Normal, Ur Leukocyte Esterase Negative, Urine RBC 0-5 SEEN, Urine WBC 0-5 SEEN, Ur Squamous Epith Cells 0-5 SEEN, Urine Bacteria 2+, Urine Mucus 0 SEEN 05/11/25 06:16: WBC Cancelled, Corrected WBC Cancelled, RBC Cancelled, Hgb Cancelled, Hct Cancelled, MCV Cancelled, MCH Cancelled, MCHC Cancelled, RDW Std Deviation Cancelled, RDW Coeff of Alex Cancelled, Plt Count Cancelled, MPV Cancelled, Immature Gran % (Auto) Cancelled, Neut % (Auto) Cancelled, Lymph % (Auto) Cancelled, Stanly % (Auto) Cancelled, Eos % (Auto) Cancelled, Baso % (Auto)Cancelled, Absolute Neuts (auto) Cancelled, Absolute Lymphs (auto) Cancelled, Total Counted Cancelled, Neutrophils % (Manual) Cancelled, Band Neutrophils % Cancelled, Lymphocytes % (Manual) Cancelled, Monocytes % (Manual) Cancelled, Eosinophils % (Manual) Cancelled, Basophils % (Manual) Cancelled, Metamyelocytes% Cancelled, Myelocytes % Cancelled, Promyelocytes % Cancelled, Blast Cells % Cancelled, Plasma Cell % (Manual) Cancelled, Other Cells % Cancelled, Nucleated RBC % Cancelled, Nucleated RBCs/100 WBC Cancelled, Differential Comment Cancelled, Diff Path Review Cancelled, Hypersegmented Neuts Cancelled, Atypical Lymphocytes Cancelled, Reactive Lymphocytes Cancelled, Smudge Cells Cancelled, Toxic Granulation Cancelled, Toxic Vacuolation Cancelled, Dohle Bodies Cancelled, Sarah Rods Cancelled, Platelet Estimate Cancelled, Plt Morphology Comment Cancelled, RBC Morphology Cancelled 05/11/25 06:16: RBC Morphology Cancelled, Polychromasia Cancelled, HypochromasiaCancelled, Basophilic Stippling Cancelled, Anisocytosis Cancelled, Microcytosis Cancelled, Macrocytosis Cancelled, Spherocytes Cancelled, Sickle Cells Cancelled, Target Cells Cancelled, Tear Drop Cells Cancelled, Ovalocytes Cancelled, Stomatocytes Cancelled, Arredondo-Mcgrew Bodies Cancelled, Sharifa Cells Cancelled, Bite Cells Cancelled, Crenated Cell Cancelled, Acanthocytes (Spur) Cancelled, Rouleaux Cancelled, Schistocytes Cancelled 05/11/25 09:15: WBC 10.3, RBC 2.02 L, Hgb 6.3 L, Hct 18.5 L, MCV 91.6, MCH 31.2,MCHC 34.1, RDW Std Deviation 47.1 H, RDW Coeff of Alex 13.9, Plt Count 114 L, MPV10.7, Immature Gran % (Auto) 0.300, Neut % (Auto) 80.9 H, Lymph % (Auto) 7.8 L, Stanly % (Auto) 10.4 H, Eos % (Auto) 0.5, Baso % (Auto) 0.1, Absolute Neuts (auto)8.4 H, Absolute Lymphs (auto) 0.81 L, Nucleated RBC % 0 05/11/25 10:15: Blood Type AB POSITIVE, Antibody Screen NEGATIVE, Crossmatch SeeDetail Physical Exam Const no apparent distress Constitutional Narrative: Patient is somnolent, she responds to painful stimuli but does not carry on a conversation General Appearance: well kempt and well developed HEENT normocephalic, head/scalp atraumatic and moist oral mucous membranes Eyes PERRL, EOMs intact bilaterally and conjunctivae normal Neck supple, no JVD, thyroid normal and no carotid bruits General: trachea midline Resp normal respiratory effort, no retractions, no use of accessory muscles and clearto auscultation bilaterally Auscultation: Negative for rales, rhonchi or wheezes Cardio regular rate, regular rhythm, S1 normal heart sound, S2 normal heart sound, no murmurs, no rub and no gallops GI normal to inspection, nondistended, normoactive bowel sounds, soft to palpation,non-tender and non-distended Skin no rashes or lesions noted General Skin Exam: no breakdown Neuro CN's II-XII intact bilaterally Neuro Narrative: Patient is somnolent, she responsive to painful stimuli but does not carry on a conversation Psych Psych Narrative: Patient responds to painful stimuli but does not carry on a conversation Assessment & Plan Assessment/Plan (1) Femoral distal fracture: QUALIFIERS: Encounter type: initial encounter Fracture type: closed Laterality: left PLAN: Plan 1. Left distal femur fracture secondary to osteoporosis-postop day 2 open reduction internal fixation of left femoral shaft, PT and OT will continue, patient may need short-term stay in a nursing home facility for rehab services #2 history of valvular heart disease with recent TAVR-patient appears medically stable #3 coronary artery disease-patient appears medically stable at this time, I willhold her Plavix for now #4 essential hypertension-patient will remain on her current medications #5 chronic use of anticoagulant-patient is on Eliquis #6 glaucoma-patient will remain on her eyedrops #7 acute anemia secondary to left distal femur fracture-patient's hemoglobin this morning was 6.3, patient will receive 2 units of packed red blood cells, CBC will be repeated tomorrow #8 transient episode of slurred speech-etiology unclear, will have an MRI of thebrain performed today #9 leukocytosis-etiology unclear, patient's white blood cell count today was normal, blood cultures are pending, I will continue antibiotics for now #10 encephalopathy-etiology unclear, patient will have an MRI of the brain performed today Total clinical time spent by myself addressing the patient's medical issues, reviewing all of her data, and collaborating with patient's care team: 35- minutes Charges/Coding Visit Charges Inpatient E&M: 00482 Subs Hosp L2 05/11/25 1523 <Electronically signed by Sourav Casiano DO> Cosigner Signature (if applicable): CC: ~ Signed [facility] Work Phone: [phone] 340-252207-15-2025 Progress note [facility] Medical Records Department [address] [place] [address] Progress Note - Orthopedic 05/11/25 1609 MR#: [id number] Acct: [id number] Name: GOGO WARE p #:[id number] : 1940 85 From: Alice DOW PCP: Dr. Eh Huddleston MD Status:ADM I N Location: [place] [address] Subjective Subjective Patient is an 85-year-old female status post left femur open reduction internal fixation with Dr. Livingston 05/09/2025. Patient's pain has a seemingly been well- controlled. Yesterday the stroke team wascalled due to a left sided facial droop however after speaking with family or friends they felt that this was stable so the hospitalist canceled the stroke alert. CT scans were obtained which did not reveal any acute stroke or acute intracranial abnormality. Upon evaluation this morning patient became unresponsive with worsening slurred speech and weakness. Patient was evaluated by the nurse and hospitalist who sent her for a stat MRI. The dressing remains dry on the left femur with no significant ecchymosis or hematoma formation. Hemaglobin dropped to 6.3. hospitalist did start ABX and ruling out UTI after a slight elevation in leukocytes. she remains afebrile. Objective Data Objective Data Vital Signs: Vital Signs Temp Pulse Resp BP Pulse Ox O2 Del Method 97.2 F L 78 18 127/48 H 97 Room Air 05/11/25 15:54 05/11/25 15:54 05/11/25 15:54 05/11/25 15:54 05/11/25 15:54 05/11/25 15:54 Oxygen Delivery Method Room Air Weight: 75.6 kg Body Mass Index (BMI) 27.3 Intake & Output: Intake and Output for Last 24 Hours 05/09/25 05/10/25 05/11/25 23:59 23:59 23:59 Intake Total 890 / 890 1337.08 / 1437.08 2593.75 / 2593.75 Output Total 1275 / 1475 200 / 200 1100 / 1100 Balance -385 / -585 1137.08 / 1237.08 1493.75 / 1493.75 Lab / Micro Data 05/11/25 09:15 05/08/25 05:45 Labs: Laboratory Results - last 24 hr 05/07/25 18:36: Crossmatch See Detail 05/10/25 15:51: WBC 14.4 H, RBC 2.53 L, Hgb 7.9 L, Hct 23.2 L, MCV 91.7, MCH 31.2, MCHC 34.1, RDW Std Deviation 46.9 H, RDW Coeff of Alex 14.0, Plt Count 127 L, MPV 10.9, Immature Gran % (Auto) 0.300,Neut % (Auto) 80.2 H, Lymph % (Auto) 6.5 L, Stanly % (Auto) 12.8 H, Eos % (Auto) 0.1, Baso % (Auto) 0.1, Absolute Neuts(auto) 11.5 H, Absolute Lymphs (auto) 0.93, Nucleated RBC % 0, Differential Comment SCANNED, Platelet Estimate SLT DEC, Troponin T High Sens 36 H 05/10/25 18:33: Troponin T Hi Sens 2 Hr 36 H 05/10/25 20:28: Troponin T Hi Sens 4Hr 34 H 05/11/25 03:35: Urine Color Yellow, Urine Clarity Clear, Urine pH 5.0, Ur Specific Pomfret 1.020, Urine Protein 15 H, Urine Glucose (UA) Normal, Urine Ketones Negative, Urine Occult Blood 25 H, UrineNitrite Negative, Urine Bilirubin Negative, Urine Urobilinogen Normal, Ur Leukocyte Esterase Negative, Urine RBC 0-5 SEEN, Urine WBC 0-5 SEEN, Ur Squamous Epith Cells 0-5 SEEN, Urine Bacteria 2+, Urine Mucus 0 SEEN 05/11/25 06:16: WBC Cancelled, Corrected WBC Cancelled, RBC Cancelled, Hgb Cancelled, Hct Cancelled, MCV Cancelled, MCH Cancelled, MCHC Cancelled, RDW Std Deviation Cancelled, RDW Coeff of Alex Cancelled, Plt Count Cancelled, MPV Cancelled, Immature Gran % (Auto) Cancelled, Neut % (Auto) Cancelled, Lymph % (Auto) Cancelled, Stanly % (Auto) Cancelled, Eos % (Auto) Cancelled, Baso % (Auto)Cancelled, Absolute Neuts (auto) Cancelled, Absolute Lymphs (auto) Cancelled, Total Counted Cancelled, Neutrophils % (Manual) Cancelled, Band Neutrophils % Cancelled, Lymphocytes % (Manual) Cancelled, Monocytes %(Manual) Cancelled, Eosinophils % (Manual) Cancelled, Basophils % (Manual) Cancelled, Metamyelocytes% Cancelled, Myelocytes % Cancelled, Promyelocytes % Cancelled, Blast Cells % Cancelled, Plasma Cell % (Manual) Cancelled, Other Cells % Cancelled, Nucleated RBC % Cancelled, Nucleated RBCs/100 WBC Cancelled, Differential Comment Cancelled, Diff Path Review Cancelled, Hypersegmented Neuts Cancelled, Atypical Lymphocytes Cancelled, Reactive Lymphocytes Cancelled, Smudge Cells Cancelled, Toxic Granulation Cancelled, Toxic Vacuolation Cancelled, Dohle Bodies Cancelled, Sarah Rods Cancelled, Platelet Estimate Cancelled, Plt Morphology Comment Cancelled, RBC Morphology Cancelled 05/11/25 06:16: RBC Morphology Cancelled, Polychromasia Cancelled, HypochromasiaCancelled, Basophilic Stippling Cancelled, Anisocytosis Cancelled, Microcytosis Cancelled, Macrocytosis Cancelled, Spherocytes Cancelled, Sickle Cells Cancelled, Target Cells Cancelled, Tear Drop Cells Cancelled, Ovalocytes Cancelled, Stomatocytes Cancelled, Arredondo-Mcgrew Bodies Cancelled, Sharifa Cells Cancelled, Bite Cells Cancelled, Crenated Cell Cancelled, Acanthocytes (Spur) Cancelled, Rouleaux Cancelled, Schistocytes Cancelled 05/11/25 09:15: WBC 10.3, RBC 2.02 L, Hgb 6.3 L, Hct 18.5 L, MCV 91.6, MCH 31.2,MCHC 34.1, RDW Std Deviation 47.1 H, RDW Coeff of Alex 13.9, Plt Count 114 L, MPV10.7, Immature Gran % (Auto) 0.300, Neut % (Auto) 80.9 H, Lymph % (Auto) 7.8 L, Stanly % (Auto) 10.4 H, Eos % (Auto) 0.5, Baso % (Auto) 0.1, Absolute Neuts (auto)8.4 H, Absolute Lymphs (auto) 0.81 L, Nucleated RBC % 0 05/11/25 10:15: Blood Type AB POSITIVE, Antibody Screen NEGATIVE, Crossmatch SeeDetail Physical Exam Narrative Patient is obtunded. right side neglect, head tilted to the left left sided facial droop left pupil ERRL minimally reponsive to deep stim appears to withdrawl on the right and localizes on the left with upper extremities lower extremities do withdrawl to stim of toes/feet. dressing over left femur c/d/i No ecchymosis noted. Compartments are soft and compressible. brisk cap refill to toes. Assessment & Plan Assessment/Plan (1) Femoral distal fracture: QUALIFIERS: Encounter type: initial encounter Fracture type: closed Laterality: left PLAN: PLAN: POD# 2 s/p left femur ORIF Nurse and hospitalist are aware of patient's mental status they are sending for a stat MRI. This was also reviewed with Dr. Livingston. -Morning H&H 6.3 hospitalist is transfusing. - Pain control - PT/OT -nonweightbearing left lower extremity, active range of motion as tolerated left knee and hip. - DVT PPX -restart home Eliquis and early mobilization -Will need placement. - Case management - D/C planning 05/11/25 1617 Cosigner Signature (if applicable): CC: ~ Signed [facility]07-15-2025 Progress note [facility] Medical Records Department [address] [place] [address] Progress Note - Hospitalist 05/11/25 1514 MR#: [id number] Acct: [id number] Name: GOGO WARE p #:[id number] : 1940 85 From: Sourav Casiano DO PCP: Dr. Eh Huddleston MD Status:ADM I N Location: [place] [address] Reason for Visit Chief Complaint: Left leg injury, inability to ambulate Subjective Subjective Patient was seen and examined today, she is very somnolent and responds to deep painful stimuli butdoes not carry on a conversation. I made the decision todayto obtain an MRI of her brain which is pending at the time of this dictation. Patient's white blood cell count today was normal, hemoglobin was low at 6.3-I ordered 2 units of packed red blood cells to be transfused. I talked briefly with the patient's friend by phone today. Objective Data Objective Data Vital Signs: Vital Signs Temp Pulse Resp BP Pulse Ox O2 Del Method 97.1 F L 79 18 107/64 99 Room Air 05/11/25 14:54 05/11/25 14:54 05/11/25 14:54 05/11/25 14:54 05/11/25 14:54 05/11/25 14:54 Oxygen Delivery Method Room Air Weight: 75.6 kg Body Mass Index (BMI) 27.3 Intake & Output: Intake and Output for Last 24 Hours 05/09/25 05/10/25 05/11/25 23:59 23:59 23:59 Intake Total 890 / 890 1337.08 / 1437.08 2193.75 / 2193.75 Output Total 1275 / 1475 200 / 200 1100 / 1100 Balance -385 / -585 1137.08 / 1237.08 1093.75 / 1093.75 Lab / Micro Data 05/11/25 09:15 05/08/25 05:45 Labs: Laboratory Results - last 24 hr 05/07/25 18:36: Crossmatch See Detail 05/10/25 15:51: WBC 14.4 H, RBC 2.53 L, Hgb 7.9 L, Hct 23.2 L, MCV 91.7, MCH 31.2, MCHC 34.1, RDW Std Deviation 46.9 H, RDW Coeff of Alex 14.0, Plt Count 127 L, MPV 10.9, Immature Gran % (Auto) 0.300,Neut % (Auto) 80.2 H, Lymph % (Auto) 6.5 L, Stanly % (Auto) 12.8 H, Eos % (Auto) 0.1, Baso % (Auto) 0.1, Absolute Neuts(auto) 11.5 H, Absolute Lymphs (auto) 0.93, Nucleated RBC % 0, Differential Comment SCANNED, Platelet Estimate SLT DEC, Troponin T High Sens 36 H 05/10/25 18:33: Troponin T Hi Sens 2 Hr 36 H 05/10/25 20:28: Troponin T Hi Sens 4Hr 34 H 05/11/25 03:35: Urine Color Yellow, Urine Clarity Clear, Urine pH 5.0, Ur Specific Pomfret 1.020, Urine Protein 15 H, Urine Glucose (UA) Normal, Urine Ketones Negative, Urine Occult Blood 25 H, UrineNitrite Negative, Urine Bilirubin Negative, Urine Urobilinogen Normal, Ur Leukocyte Esterase Negative, Urine RBC 0-5 SEEN, Urine WBC 0-5 SEEN, Ur Squamous Epith Cells 0-5 SEEN, Urine Bacteria 2+, Urine Mucus 0 SEEN 05/11/25 06:16: WBC Cancelled, Corrected WBC Cancelled, RBC Cancelled, Hgb Cancelled, Hct Cancelled, MCV Cancelled, MCH Cancelled, MCHC Cancelled, RDW Std Deviation Cancelled, RDW Coeff of Alex Cancelled, Plt Count Cancelled, MPV Cancelled, Immature Gran % (Auto) Cancelled, Neut % (Auto) Cancelled, Lymph % (Auto) Cancelled, Stanly % (Auto) Cancelled, Eos % (Auto) Cancelled, Baso % (Auto)Cancelled, Absolute Neuts (auto) Cancelled, Absolute Lymphs (auto) Cancelled, Total Counted Cancelled, Neutrophils % (Manual) Cancelled, Band Neutrophils % Cancelled, Lymphocytes % (Manual) Cancelled, Monocytes %(Manual) Cancelled, Eosinophils % (Manual) Cancelled, Basophils % (Manual) Cancelled, Metamyelocytes% Cancelled, Myelocytes % Cancelled, Promyelocytes % Cancelled, Blast Cells % Cancelled, Plasma Cell % (Manual) Cancelled, Other Cells % Cancelled, Nucleated RBC % Cancelled, Nucleated RBCs/100 WBC Cancelled, Differential Comment Cancelled, Diff Path Review Cancelled, Hypersegmented Neuts Cancelled, Atypical Lymphocytes Cancelled, Reactive Lymphocytes Cancelled, Smudge Cells Cancelled, Toxic Granulation Cancelled, Toxic Vacuolation Cancelled, Dohle Bodies Cancelled, Sarah Rods Cancelled, Platelet Estimate Cancelled, Plt Morphology Comment Cancelled, RBC Morphology Cancelled 05/11/25 06:16: RBC Morphology Cancelled, Polychromasia Cancelled, HypochromasiaCancelled, Basophilic Stippling Cancelled, Anisocytosis Cancelled, Microcytosis Cancelled, Macrocytosis Cancelled, Spherocytes Cancelled, Sickle Cells Cancelled, Target Cells Cancelled, Tear Drop Cells Cancelled, Ovalocytes Cancelled, Stomatocytes Cancelled, Arredondo-Mcgrew Bodies Cancelled, Sharifa Cells Cancelled, Bite Cells Cancelled, Crenated Cell Cancelled, Acanthocytes (Spur) Cancelled, Rouleaux Cancelled, Schistocytes Cancelled 05/11/25 09:15: WBC 10.3, RBC 2.02 L, Hgb 6.3 L, Hct 18.5 L, MCV 91.6, MCH 31.2,MCHC 34.1, RDW Std Deviation 47.1 H, RDW Coeff of Alex 13.9, Plt Count 114 L, MPV10.7, Immature Gran % (Auto) 0.300, Neut % (Auto) 80.9 H, Lymph % (Auto) 7.8 L, Stanly % (Auto) 10.4 H, Eos % (Auto) 0.5, Baso % (Auto) 0.1, Absolute Neuts (auto)8.4 H, Absolute Lymphs (auto) 0.81 L, Nucleated RBC % 0 05/11/25 10:15: Blood Type AB POSITIVE, Antibody Screen NEGATIVE, Crossmatch SeeDetail Physical Exam Const no apparent distress Constitutional Narrative: Patient is somnolent, she responds to painful stimuli but does not carry on a conversation General Appearance: well kempt and well developed HEENT normocephalic, head/scalp atraumatic and moist oral mucous membranes Eyes PERRL, EOMs intact bilaterally and conjunctivae normal Neck supple, no JVD, thyroid normal and no carotid bruits General: trachea midline Resp normal respiratory effort, no retractions, no use of accessory muscles and clearto auscultation bilaterally Auscultation: Negative for rales, rhonchi or wheezes Cardio regular rate, regular rhythm, S1 normal heart sound, S2 normal heart sound, no murmurs, no rub and no gallops GI normal to inspection, nondistended, normoactive bowel sounds, soft to palpation,non-tender and non-distended Skin no rashes or lesions noted General Skin Exam: no breakdown Neuro CN's II-XII intact bilaterally Neuro Narrative: Patient is somnolent, she responsive to painful stimuli but does not carry on a conversation Psych Psych Narrative: Patient responds to painful stimuli but does not carry on a conversation Assessment & Plan Assessment/Plan (1) Femoral distal fracture: QUALIFIERS: Encounter type: initial encounter Fracture type: closed Laterality: left PLAN: Plan 1. Left distal femur fracture secondary to osteoporosis-postop day 2 open reduction internal fixation of left femoral shaft, PT and OT will continue, patient may need short-term stay in a nursing home facility for rehab services #2 history of valvular heart disease with recent TAVR-patient appears medically stable #3 coronary artery disease-patient appears medically stable at this time, I willhold her Plavix fornow #4 essential hypertension-patient will remain on her current medications #5 chronic use of anticoagulant-patient is on Eliquis #6 glaucoma-patient will remain on her eyedrops #7 acute anemia secondary to left distal femur fracture-patient's hemoglobin this morning was 6.3, patient will receive 2 units of packed red blood cells, CBC will be repeated tomorrow #8 transient episode of slurred speech-etiology unclear, will have an MRI of thebrain performed today #9 leukocytosis-etiology unclear, patient's white blood cell count today was normal, blood culturesare pending, I will continue antibiotics for now #10 encephalopathy-etiology unclear, patient will have an MRI of the brain performed today Total clinical time spent by myself addressing the patient's medical issues, reviewing all of her data, and collaborating with patient's care team: 35-minutes Charges/Coding Visit Charges Inpatient E&M: 26530 Subs Hosp L2 05/11/25 1523 Cosigner Signature (if applicable): CC: ~ Signed [facility]07-14-2025 Progress note Author Sourav Casiano [facility] Note Date/Time May 10, 2025 6:27 pm [facility] Medical Records Department [address] [place] [address] Progress Note - Hospitalist 05/10/25 182 MR#: [id number] Acct: [id number] Name: GOGO WARE p #:[id number] : 1940 85 From: Sourav Casiano DO PCP: Dr. Eh Huddleston MD Status:ADM I N Location: MS3 MO606-3 Reason for Visit Chief Complaint: Left leg injury, inability to ambulate Subjective Subjective Patient was seen and examined today, physical therapy felt that the patient had slurred speech and left-sided weakness as well as a left facial droop, a stroke team was initially called on the patient, however, I talked with the patient's friend by telephone and she confirmed that the patient has had a left facial droop for quite some time. Patient's stroke team was canceled, patient underwent a CTA of the head and neck as well as a CT of the brain-these imaging studies were unremarkable. Later on in the afternoon, patient's blood pressure declined, I ordered labs which showed an elevated white blood cell count, I elected to place the patient on IV antibiotics for possible infection and patient's hemoglobin on the CBC was 7.9 which was essentially unchanged from this morning's hemoglobin. Nursing stated that shortly after the patient was complaining that she wanted to , she was seen sitting in her room sipping a frozen drink and did not appear to be in any distress. I have ordered a UA on the patient and will obtain labs in the morning on the patient. Objective Data Objective Data Vital Signs: Vital Signs Temp Pulse Resp BP Pulse Ox O2 Del Method 98.1 F 72 18 110/36 L 100 Room Air 05/10/25 15:20 05/10/25 16:50 05/10/25 15:20 05/10/25 16:50 05/10/25 15:20 05/10/25 15:20 Oxygen Delivery Method Room Air Weight: 75.6 kg Body Mass Index (BMI) 27.3 Intake & Output: Intake and Output for Last 24 Hours 05/08/25 05/09/25 05/10/25 23:59 23:59 23:59 Intake Total 1300 / 1300 890 / 890 1110 / 1110 Output Total 500 / 800 1275 / 1475 200 / 200 Balance 800 / 500 -385 / -585 910 / 910 Lab / Micro Data 05/10/25 15:51 05/08/25 05:45 Labs: Laboratory Results - last 24 hr 05/10/25 08:29: Hgb 8.0 L, Hct 23.4 L 05/10/25 09:22: POC Glucose 158 H 05/10/25 15:51: WBC 14.4 H, RBC 2.53 L, Hgb 7.9 L, Hct 23.2 L, MCV 91.7, MCH 31.2, MCHC 34.1, RDW Std Deviation 46.9 H, RDW Coeff of Alex 14.0, Plt Count 127 L, MPV 10.9, Immature Gran % (Auto) 0.300, Neut % (Auto) 80.2 H, Lymph % (Auto) 6.5 L, Stanly % (Auto) 12.8 H, Eos % (Auto) 0.1, Baso % (Auto) 0.1, Absolute Neuts(auto) 11.5 H, Absolute Lymphs (auto) 0.93, Nucleated RBC % 0, Troponin T High Sens 36 H Radiography Diagnostic Testing: Radiology Impression Brain CT 05/10/25 09:24 IMPRESSION: CHRONIC CHANGES. NO ACUTE FINDINGS. Reading Location: [facility]--1 Head/Neck CTA 05/10/25 09:35 IMPRESSION: Atherosclerotic calcific plaques at the origin of the right and left internal carotid arteries as described. Red Alert: Nothing acute The critical information above was relayed directly by me by telephone to Sourav Casiano on 05/10/2025 at 9:55 am with readback verification. Reading Location: [facility]-IR-1 Physical Exam Narrative alert, oriented x3, no apparent distress and healthy appearing Constitutional Narrative: Patient appears much younger than her stated age General Appearance: cooperative, well kempt and well developed Orientation / Consciousness: awake, oriented to person, oriented to place and oriented to time HEENT normocephalic, head/scalp atraumatic, hearing grossly normal bilaterally and moist oral mucous membranes Eyes PERRL, EOMs intact bilaterally and conjunctivae normal Neck supple, no JVD, thyroid normal and no carotid bruits General: trachea midline Resp normal respiratory effort, no retractions, no use of accessory muscles and clearto auscultation bilaterally Auscultation: Negative for rales, rhonchi or wheezes Cardio regular rate, regular rhythm, S1 normal heart sound, S2 normal heart sound, no murmurs, no rub and no gallops GI normal to inspection, nondistended, normoactive bowel sounds, soft to palpation,non-tender and non-distended Skin no rashes or lesions noted General Skin Exam: no breakdown Neuro oriented x3, CN's II-XII intact bilaterally, no focal motor deficits and no sensory deficits noted Sensorium / Orientation: awake and alert Speech: speech normal Psych affect normal Assessment & Plan Assessment/Plan (1) Femoral distal fracture: QUALIFIERS: Encounter type: initial encounter Fracture type: closed Laterality: left PLAN: Plan 1. 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-patient appears medically stable #3 coronary artery disease-patient appears medically stable at this time, I willhold her Plavix for now #4 essential hypertension-patient will remain on her current medications #5 chronic use of anticoagulant-patient's Eliquis will be restarted tomorrow #6 glaucoma-patient will remain on her eyedrops #7 acute anemia secondary to left distal femur fracture-patient's hemoglobin this morning was 8.0, her repeat hemoglobin this afternoon was 7.9, I will repeat the patient's CBC tomorrow #8 transient episode of slurred speech-etiology unclear, I have decided to lowerthe patient's pain medication #9 leukocytosis-etiology unclear, I have decided to place the patient on IV antibiotics for now and obtain a blood culture and urine culture. Total clinical time spent by myself addressing the patient's medical issues, reviewing all of her data, and collaborating with patient's care team: 50-minute Charges/Coding Visit Charges Inpatient E&M: 52291 Subs Hosp L3 05/10/251826 <Electronically signed by Sourav Casiano DO> Cosigner Signature (if applicable): CC: ~ Signed [facility] Work Phone: 1(780) 174-835807-14-2025 Progress note [facility] Medical Records Department [address] [place] [address] Progress Note - Hospitalist 05/10/251821 MR#: [id number] Acct: [id number] Name: GOGO WARE #:[id number] : 1940 85 From: Sourav Casiano DO PCP: Dr. Eh Huddleston MD Status:ADM I N Location: MS3 LV208-7 Reason for Visit Chief Complaint: Left leg injury, inability to ambulate Subjective Subjective Patient was seen and examined today, physical therapy felt that the patient had slurred speech and left-sided weakness as well as a left facial droop, a stroke team was initially called on the patient, however, I talked with the patient's friend by telephone and she confirmed that the patient has had a left facial droop for quite some time. Patient's stroke team was canceled, patient underwent a CTA of the head and neck as well as a CT of the brain-these imaging studies were unremarkable. Lateron in the afternoon, patient's blood pressure declined, I ordered labs which showed an elevated white blood cell count, I elected to place the patient on IV antibiotics for possible infection and patient's hemoglobin on the CBC was 7.9 which was essentially unchanged from this morning's hemoglobin.Nursing stated that shortly after the patient was complaining that she wanted to , she was seen sitting in her room sipping a frozen drink and did not appear to be in any distress. I have ordered a UA on the patient and will obtain labs in the morning on the patient. Objective Data Objective Data Vital Signs: Vital Signs Temp Pulse Resp BP Pulse Ox O2 Del Method 98.1 F 72 18 110/36 L 100 Room Air 05/10/25 15:20 05/10/25 16:50 05/10/25 15:20 05/10/25 16:50 05/10/25 15:20 05/10/25 15:20 Oxygen Delivery Method Room Air Weight: 75.6 kg Body Mass Index (BMI) 27.3 Intake & Output: Intake and Output for Last 24 Hours 05/08/25 05/09/25 05/10/25 23:59 23:59 23:59 Intake Total 1300 / 1300 890 / 890 1110 / 1110 Output Total 500 / 800 1275 / 1475 200 / 200 Balance 800 / 500 -385 / -585 910 / 910 Lab / Micro Data 05/10/25 15:51 05/08/25 05:45 Labs: Laboratory Results - last 24 hr 05/10/25 08:29: Hgb 8.0 L, Hct 23.4 L 05/10/25 09:22: POC Glucose 158 H 05/10/25 15:51: WBC 14.4 H, RBC 2.53 L, Hgb 7.9 L, Hct 23.2 L, MCV 91.7, MCH 31.2, MCHC 34.1, RDW Std Deviation 46.9 H, RDW Coeff of Alex 14.0, Plt Count 127 L, MPV 10.9, Immature Gran % (Auto) 0.300,Neut % (Auto) 80.2 H, Lymph % (Auto) 6.5 L, Stanly % (Auto) 12.8 H, Eos % (Auto) 0.1, Baso % (Auto) 0.1, Absolute Neuts(auto) 11.5 H, Absolute Lymphs (auto) 0.93, Nucleated RBC % 0, Troponin T High Sens 36 H Radiography Diagnostic Testing: Radiology Impression Brain CT 05/10/25 09:24 IMPRESSION: CHRONIC CHANGES. NO ACUTE FINDINGS. Reading Location: [facility]-IR-1 Head/Neck CTA 05/10/25 09:35 IMPRESSION: Atherosclerotic calcific plaques at the origin of the right and left internal carotid arteries as described. Red Alert: Nothing acute The critical information above was relayed directly by me by telephone to Sourav Casiano on 05/10/2025 at 9:55 am with readback verification. Reading Location: [facility]-IR-1 Physical Exam Narrative alert, oriented x3, no apparent distress and healthy appearing Constitutional Narrative: Patient appears much younger than her stated age General Appearance: cooperative, well kempt and well developed Orientation / Consciousness: awake, oriented to person, oriented to place and oriented to time HEENT normocephalic, head/scalp atraumatic, hearing grossly normal bilaterally and moist oral mucous membranes Eyes PERRL, EOMs intact bilaterally and conjunctivae normal Neck supple, no JVD, thyroid normal and no carotid bruits General: trachea midline Resp normal respiratory effort, no retractions, no use of accessory muscles and clearto auscultation bilaterally Auscultation: Negative for rales, rhonchi or wheezes Cardio regular rate, regular rhythm, S1 normal heart sound, S2 normal heart sound, no murmurs, no rub and no gallops GI normal to inspection, nondistended, normoactive bowel sounds, soft to palpation,non-tender and non-distended Skin no rashes or lesions noted General Skin Exam: no breakdown Neuro oriented x3, CN's II-XII intact bilaterally, no focal motor deficits and no sensory deficits noted Sensorium / Orientation: awake and alert Speech: speech normal Psych affect normal Assessment & Plan Assessment/Plan (1) Femoral distal fracture: QUALIFIERS: Encounter type: initial encounter Fracture type: closed Laterality: left PLAN: Plan 1. 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-patient appears medically stable #3 coronary artery disease-patient appears medically stable at this time, I willhold her Plavix fornow #4 essential hypertension-patient will remain on her current medications #5 chronic use of anticoagulant-patient's Eliquis will be restarted tomorrow #6 glaucoma-patient will remain on her eyedrops #7 acute anemia secondary to left distal femur fracture-patient's hemoglobin this morning was 8.0, her repeat hemoglobin this afternoon was 7.9, I will repeat the patient's CBC tomorrow #8 transient episode of slurred speech-etiology unclear, I have decided to lowerthe patient's pain medication #9 leukocytosis-etiology unclear, I have decided to place the patient on IV antibiotics for now andobtain a blood culture and urine culture. Total clinical time spent by myself addressing the patient's medical issues, reviewing all of her data, and collaborating with patient's care team: 50-minute Charges/Coding Visit Charges Inpatient E&M: 53280 [facility] Hosp 05/10/257 Cosigner Signature (if applicable): CC: ~ Signed [facility]07-14-2025 Progress note Author Santhosh Livingston [facility] Note Date/Time May 10, 2025 10:1 2am [facility] Medical Records Department [address] [place] [address] Progress Note - Orthopedic 05/10/25 1009 MR#: [id number] Acct: [id number] Name: GOGO WARE p #:[id number] : 1940 85 From: Santhosh randolph DO PCP: Dr. Eh Huddleston MD Status:ADM I N Location: [place] [address] Subjective Subjective Patient seen and examined. Stroke alert called due to facial droop. Earlier this morning and CT scans performed. Stroke alert was evidently canceled by hospitalist. Hospitalist is aware. She reports soreness in her left flank. Denies any numbness or tingling. Denies fevers, chills, nausea or vomiting, chest pain or shortness of breath. Objective Data Objective Data Vital Signs: Vital Signs Temp Pulse Resp BP Pulse Ox O2 Del Method 98.4 F 74 18 126/44 H 94 Room Air 05/10/25 08:00 05/10/25 08:00 05/10/25 08:00 05/10/25 08:00 05/10/25 08:07 05/10/25 08:07 Oxygen Delivery Method Room Air Weight: 166 lb 10.711 oz Body Mass Index (BMI) 27.3 Intake & Output: Intake and Output for Last 24 Hours 05/08/25 05/09/25 05/10/25 23:59 23:59 23:59 Intake Total 1300 / 1300 890 / 890 110 / 110 Output Total 500 / 800 1275 / 1475 200 / 200 Balance 800 / 500 -385 / -585 -90 / -90 Lab / Micro Data 05/09/25 11:25 05/08/25 05:45 Labs: Laboratory Results - last 24 hr 05/07/25 18:36: Crossmatch See Detail 05/09/25 11:25: WBC 9.0, RBC 3.02 L, Hgb 9.2 L, Hct 27.9 L, MCV 92.4, MCH 30.5, MCHC 33.0, RDW Std Deviation 46.4 H, RDW Coeff of Alex 13.7, Plt Count 116 L, MPV11.1 05/10/25 09:22: POC Glucose 158 H Radiography Diagnostic Testing: Radiology Impression Femur X-Ray 05/09/25 08:00 IMPRESSION: Anatomic alignment Reading Location: [facility] Head/Neck CTA 05/10/25 09:35 IMPRESSION: Atherosclerotic calcific plaques at the origin of the right and left internal carotid arteries as described. Red Alert: Nothing acute The critical information above was relayed directly by me by telephone to Sourav Casiano on 05/10/2025 at 9:55 am with readback verification. [facility] Physical Exam Narrative Alert and oriented x 3, no acute distress. Left-sided facial droop noted. Left lower extremity: Incisional dressing clean dry and intact. No ecchymosis noted. Compartments are soft and compressible. DF, PF, EHL 5/5. DP 2+, brisk cap refill to toes. Sensation intact light touch throughout. Calf is soft nontender. Assessment & Plan Assessment/Plan (1) Femoral distal fracture: QUALIFIERS: Encounter type: initial encounter Fracture type: closed Laterality: left PLAN: POD# 1 s/p left femur ORIF -Morning H&H pending - Pain control - Medicine following for medical management, defer to medicine regarding furtherworkup with new onset facial droop. - PT/OT -nonweightbearing left lower extremity, active range of motion as tolerated left knee and hip. - DVT PPX -restart home Eliquis and early mobilization -Will need placement. - Case management - D/C planning 05/10/25 1012 <Electronically signed by Santhosh Livingston DO> Cosigner Signature (if applicable): CC: ~ Signed [facility] Work Phone: 1(177) 518-161507-14-2025 Radiology Diagnostic study note [facility] Imaging Services [address] [place], [place] [address] STROKE Brain/Head without Cont MR#: [id number] Acct: [id number] Name: GOGO WARE Rep #: [id number] : 1940 F 85 From: Jd Martin MD PCP: Dr. Eh Huddleston MD Status: ADM I N Study:STROKE Brain/Head without Cont Date of Exam: 05/10/25 Exam# [id number] Ordering Dr: Sourav Celestin DO PROCEDURE: STROKE BRAIN/HEAD WITHOUT CONT 05/10/2025 REASON FOR EXAM: LEFT FACIAL DROOP TECHNIQUE: STROKE BRAIN/HEAD WITHOUT CONT Coronal and Sagittal reconstruction series were provided. One or more dose reduction techniques were used (e.g., Automated exposure control, adjustment of the mA and/or kV according to patient size, use of iterative reconstruction technique. RADIATION DOSE SUMMARY: CTDlvol: 44.99 mGy DLP: 812.98 mGycm COMPARISON: Prior study dated May 23, 2021. FINDINGS: Brain: Low density in the periventricular white matter suggests mild chronic small vessel ischemic changes. 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 Mild cerebellar atrophy. CSF Spaces: Mild generalized cerebral atrophy Sinuses/Mastoids: Clear at visualized levels Bones: Unremarkable CT/STROKE Brain/Head without Cont IMPRESSION: CHRONIC CHANGES. NO ACUTE FINDINGS. Reading Location: [place] [address] CC: Dr. Sourav Casiano DO; Dr. Eh Huddleston MD ~ General Studies Program Chair: Signed [facility]07-14-2025 Progress note [facility] Medical Records Department [address] [place] [address] Progress Note - Orthopedic 05/10/25 1009 MR#: [id number] Acct: [id number] Name: GOGO WARE p #:[id number] : 1940 85 From: Santhosh randolph DO PCP: Dr. Eh Huddleston MD Status:ADM I N Location: [place] [address] Subjective Subjective Patient seen and examined. Stroke alert called due to facial droop. Earlier this morning and CT scans performed. Stroke alert was evidently canceled by hospitalist. Hospitalist is aware. She reports soreness in her left flank. Denies any numbness or tingling. Denies fevers, chills, nausea or vomiting, chest pain or shortness of breath. Objective Data Objective Data Vital Signs: Vital Signs Temp Pulse Resp BP Pulse Ox O2 Del Method 98.4 F 74 18 126/44 H 94 Room Air 05/10/25 08:00 05/10/25 08:00 05/10/25 08:00 05/10/25 08:00 05/10/25 08:07 05/10/25 08:07 Oxygen Delivery Method Room Air Weight: 166 lb 10.711 oz Body Mass Index (BMI) 27.3 Intake & Output: Intake and Output for Last 24 Hours 05/08/25 05/09/25 05/10/25 23:59 23:59 23:59 Intake Total 1300 / 1300 890 / 890 110 / 110 Output Total 500 / 800 1275 / 1475 200 / 200 Balance 800 / 500 -385 / -585 -90 / -90 Lab / Micro Data 05/09/25 11:25 05/08/25 05:45 Labs: Laboratory Results - last 24 hr 05/07/25 18:36: Crossmatch See Detail 05/09/25 11:25: WBC 9.0, RBC 3.02 L, Hgb 9.2 L, Hct 27.9 L, MCV 92.4, MCH 30.5, MCHC 33.0, RDW Std Deviation 46.4 H, RDW Coeff of Alex 13.7, Plt Count 116 L, MPV11.1 05/10/25 09:22: POC Glucose 158 H Radiography Diagnostic Testing: Radiology Impression Femur X-Ray 05/09/25 08:00 IMPRESSION: Anatomic alignment [facility] Head/Neck CTA 05/10/25 09:35 IMPRESSION: Atherosclerotic calcific plaques at the origin of the right and left internal carotid arteries as described. Red Alert: Nothing acute The critical information above was relayed directly by me by telephone to Sourav Casiano on 05/10/2025 at 9:55 am with readback verification. [facility] Physical Exam Narrative Alert and oriented x 3, no acute distress. Left-sided facial droop noted. Left lower extremity: Incisional dressing clean dry and intact. No ecchymosis noted. Compartments are soft and compressible. DF, PF, EHL 5/5. DP 2+, brisk cap refill to toes. Sensation intact light touch throughout. Calf is soft nontender. Assessment & Plan Assessment/Plan (1) Femoral distal fracture: QUALIFIERS: Encounter type: initial encounter Fracture type: closed Laterality: left PLAN: POD# 1 s/p left femur ORIF -Morning H&H pending - Pain control - Medicine following for medical management, defer to medicine regarding furtherworkup with new onset facial droop. - PT/OT -nonweightbearing left lower extremity, active range of motion as tolerated left knee and hip. - DVT PPX -restart home Eliquis and early mobilization -Will need placement. - Case management - D/C planning 05/10/25 1012 Cosigner Signature (if applicable): CC: ~ Signed [facility]07-14-2025 Radiology Diagnostic study note [facility] Imaging Services [address] [place] [address] [id number] STROKE CTA Head AND Neck W/Con MR#: [id number] Acct: [id number] Name: GOGO WARE Rep #: [id number] : 1940 F 85 From: Jd Martin MD PCP: Dr. Eh Huddleston MD Status: ADM I N Study:STROKE CTA Head AND Neck W/Con Date of Exam: 05/10/25 Exam# [id number] Ordering Dr: Sourav Celetsin DO PROCEDURE: STROKE CTA HEAD AND NECK W/CON 05/10/2025 REASON FOR EXAM: NEURO SX TECHNIQUE: STROKE CTA HEAD AND NECK W/CON Multiplanar Sagittal and Coronal images were obtained. CONTRAST: Isovue 370 VOLUME: 100 mL One or more dose reduction techniques were used (e.g., Automated exposure control, adjustment of the mA and/or kV according to patient size, use of iterative reconstruction technique). RADIATION DOSE SUMMARY: CTDlvol: 19 mGy DLP: 640.44 mGycm COMPARISON: None FINDINGS: Aortic Arch: Normal size and branching pattern. Mild atherosclerotic plaque. Brachiocephalic and Subclavians: Mild atherosclerotic plaque without significantstenosis. RIGHT Carotid: Right CCA: Unremarkable. Right ICA: Moderate calcified and soft plaque. Maximum stenosis (NASCET): > 70 % Right ECA: Unremarkable. LEFT Carotid: Left CCA: Unremarkable. Left ICA: Moderate calcified and soft plaque. Maximum stenosis (NASCET): 60 % Left ECA: Unremarkable. Vertebrals: Codominant. Arise from the subclavians. Both vertebrals form the basilar. RIGHT Vertebral: Unremarkable. LEFT Vertebral: Unremarkable. Anatomy: Cunningham of Murphy anatomy is normal. Atherosclerotic calcific plaques of the cavernous portions of the internal carotid arteries bilaterally. Aneurysm or avm: No intracranial aneurysms or large vascular malformations are identified. Anterior cerebral arteries: Unremarkable: Middle cerebral arteries: Unremarkable. Basilar artery: Unremarkable. Posterior cerebral arteries: Unremarkable. Other major branches of the posterior circulation: Unremarkable. Major venous structures: Unremarkable. CT/STROKE CTA Head AND Neck W/Con IMPRESSION: Atherosclerotic calcific plaques at the origin of the right and left internal carotid arteries as described. Red Alert: Nothing acute The critical information above was relayed directly by me by telephone to Sourav Casiano on 05/10/2025 at 9:55 am with readback verification. Reading Location: [place] [address] CC: Dr. Sourav Casiano DO; Dr. Eh Huddleston MD ~ General Studies Program Chair: Signed [facility]07-13-2025 Progress note Author Sourav Casiano [facility] Note Date/Time May 09, 2025 4:19 pm [facility] Medical Records Department [address] [place] [id number] Progress Note - Hospitalist 05/09/25 1613 MR#: [id number] Acct: [id number] Name: GOGO WARE p #:[id number] : 1940 85 From: Sourav Casiano DO PCP: Dr. Eh Huddleston MD Status:ADM I N Location: [place] [id number] Reason for Visit Chief Complaint: Left leg injury, inability to ambulate Subjective Subjective Patient was seen and examined today, she underwent ORIF of her left femur fracture, hemoglobin was low this morning at 8, I typed and crossed 2 units of blood and 1 unit was given by orthopedic surgery. Objective Data Objective Data Vital Signs: Vital Signs Temp Pulse Resp BP Pulse Ox O2 Del Method 97.1 F L 77 18 131/42 H 98 Room Air 05/09/25 13:38 05/09/25 13:38 05/09/25 13:38 05/09/25 13:38 05/09/25 13:38 05/09/25 13:38 Oxygen Delivery Method Room Air Weight: 75.6 kg Body Mass Index (BMI) 27.3 Intake & Output: Intake and Output for Last 24 Hours 05/07/25 05/08/25 05/09/25 23:59 23:59 23:59 Intake Total 1300 / 1300 500 / 500 Output Total 250 / 250 500 / 800 950 / 950 Balance -250 / 50 800 / 500 -450 / -450 Lab / Micro Data 05/09/25 11:25 05/08/25 05:45 Labs: Laboratory Results - last 24 hr 05/07/25 18:36: Crossmatch See Detail 05/09/25 06:45: Hgb 8.5 L, Hct 25.3 L 05/09/25 11:25: WBC 9.0, RBC 3.02 L, Hgb 9.2 L, Hct 27.9 L, MCV 92.4, MCH 30.5, MCHC 33.0, RDW Std Deviation 46.4 H, RDW Coeff of Alex 13.7, Plt Count 116 L, MPV11.1 Radiography Diagnostic Testing: Radiology Impression Femur X-Ray 05/09/25 08:00 IMPRESSION: Anatomic alignment Reading Location: [facility] Physical Exam Narrative alert, oriented x3, no apparent distress and healthy appearing Constitutional Narrative: Patient appears much younger than her stated age General Appearance: cooperative, well kempt and well developed Orientation / Consciousness: awake, oriented to person, oriented to place and oriented to time HEENT normocephalic, head/scalp atraumatic, hearing grossly normal bilaterally and moist oral mucous membranes Eyes PERRL, EOMs intact bilaterally and conjunctivae normal Neck supple, no JVD, thyroid normal and no carotid bruits General: trachea midline Resp normal respiratory effort, no retractions, no use of accessory muscles and clearto auscultation bilaterally Auscultation: Negative for rales, rhonchi or wheezes Cardio regular rate, regular rhythm, S1 normal heart sound, S2 normal heart sound, no murmurs, no rub and no gallops GI normal to inspection, nondistended, normoactive bowel sounds, soft to palpation,non-tender and non-distended Skin no rashes or lesions noted General Skin Exam: no breakdown Neuro oriented x3, CN's II-XII intact bilaterally, no focal motor deficits and no sensory deficits noted Sensorium / Orientation: awake and alert Speech: speech normal Psych affect normal Assessment & Plan Assessment/Plan (1) Femoral distal fracture: QUALIFIERS: Encounter type: initial encounter Fracture type: closed Laterality: left PLAN: Plan 1. 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 Total clinical time spent by myself addressing the patient's medical issues, reviewing all of her data, and collaborating with patient's care team: 35-minute Charges/Coding Visit Charges Inpatient E&M: 05105 Subs Hosp L2 05/09/25 1619 <Electronically signed by Sourav Casiano DO> Cosigner Signature (if applicable): CC: ~ Signed [facility] Work Phone: 1(842) 239-901307-13-2025 Progress note [facility] Medical Records Department [address] [place] [address] Progress Note - Hospitalist 05/09/25 1613 MR#: [id number] Acct: [id number] Name: CHAZGOGOYUKO Gordon p #:[id number] : 1940 85 From: Sourav Casiano DO PCP: Dr. Eh Huddleston MD Status:ADM I N Location: [place]573-1 Reason for Visit Chief Complaint: Left leg injury, inability to ambulate Subjective Subjective Patient was seen and examined today, she underwent ORIF of her left femur fracture, hemoglobin was low this morning at 8, I typed and crossed 2 units of blood and 1 unit was given by orthopedic surgery. Objective Data Objective Data Vital Signs: Vital Signs Temp Pulse Resp BP Pulse Ox O2 Del Method 97.1 F L 77 18 131/42 H 98 Room Air 05/09/25 13:38 05/09/25 13:38 05/09/25 13:38 05/09/25 13:38 05/09/25 13:38 05/09/25 13:38 Oxygen Delivery Method Room Air Weight: 75.6 kg Body Mass Index (BMI) 27.3 Intake & Output: Intake and Output for Last 24 Hours 05/07/25 05/08/25 05/09/25 23:59 23:59 23:59 Intake Total 1300 / 1300 500 / 500 Output Total 250 / 250 500 / 800 950 / 950 Balance -250 / 50 800 / 500 -450 / -450 Lab / Micro Data 05/09/25 11:25 05/08/25 05:45 Labs: Laboratory Results - last 24 hr 05/07/25 18:36: Crossmatch See Detail 05/09/25 06:45: Hgb 8.5 L, Hct 25.3 L 05/09/25 11:25: WBC 9.0, RBC 3.02 L, Hgb 9.2 L, Hct 27.9 L, MCV 92.4, MCH 30.5, MCHC 33.0, RDW Std Deviation 46.4 H, RDW Coeff of Alex 13.7, Plt Count 116 L, MPV11.1 Radiography Diagnostic Testing: Radiology Impression Femur X-Ray 05/09/25 08:00 IMPRESSION: Anatomic alignment Reading Location: [facility] Physical Exam Narrative alert, oriented x3, no apparent distress and healthy appearing Constitutional Narrative: Patient appears much younger than her stated age General Appearance: cooperative, well kempt and well developed Orientation / Consciousness: awake, oriented to person, oriented to place and oriented to time HEENT normocephalic, head/scalp atraumatic, hearing grossly normal bilaterally and moist oral mucous membranes Eyes PERRL, EOMs intact bilaterally and conjunctivae normal Neck supple, no JVD, thyroid normal and no carotid bruits General: trachea midline Resp normal respiratory effort, no retractions, no use of accessory muscles and clearto auscultation bilaterally Auscultation: Negative for rales, rhonchi or wheezes Cardio regular rate, regular rhythm, S1 normal heart sound, S2 normal heart sound, no murmurs, no rub and no gallops GI normal to inspection, nondistended, normoactive bowel sounds, soft to palpation,non-tender and non-distended Skin no rashes or lesions noted General Skin Exam: no breakdown Neuro oriented x3, CN's II-XII intact bilaterally, no focal motor deficits and no sensory deficits noted Sensorium / Orientation: awake and alert Speech: speech normal Psych affect normal Assessment & Plan Assessment/Plan (1) Femoral distal fracture: QUALIFIERS: Encounter type: initial encounter Fracture type: closed Laterality: left PLAN: Plan 1. 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 Total clinical time spent by myself addressing the patient's medical issues, reviewing all of her data, and collaborating with patient's care team: 35-minute Charges/Coding Visit Charges Inpatient E&M: 55150 Subs Hosp L2 05/09/25 3717 Cosigner Signature (if applicable): CC: ~ Signed [facility]07-13-2025 Consult note Author Jim Jones [facility] Note Date/Time May 09, 2025 10:5 2am [facility] Medical Records Department [address] [place] [address] Anesthesia Postop Eval I 05/09/25 1051 MR#: [id number] Acct: [id number] Name: GOGO WARE Heidi p #:[id number] : 1940 85 From: Jim Jones MD PCP: Dr. Eh Huddleston MD Status:ADM I N Y Race: C Location: [place] [address] Anesthesia: Postop Eval I Current Vital Signs Temperature: 97.7 F Pulse Rate: 75 Blood Pressure: 137/48 Respiratory Rate: 16 Pulse Ox: 100 Oxygen Delivery Method: Room Air Assessment Airway patent: Yes Spontaneous unlabored respirations: Yes Mental status: Awake and Calm nausea: No Vomiting: No Anesthesia Complication: No Fluid Hydration Crystalloid volume administer (ml): 700 Blood Product volume administered (ml): 1 Total IV fluid infused: 701 Progress Note Post-operative progress note: 1 unit prbc intra op Anesthesia document: Postop Eval 1 completed: Yes 05/09/25 105 <Electronically signed by Jim Jones MD > Date _ Jim Jones MD Cosigner Signature: Date CC: ~ Signed [facility] Work Phone: 1(604) 979-896907-13-2025 Consult note Author Jim Jones [facility] Note Date/Time May 09, 2025 10:5 2am [facility] Medical Records Department [address] [place] [address] Anesthesia Postop Eval II 05/09/25 1052 MR#: [id number] Acct: [id number] Name: ADDISONGOGO MUÑOZ ANAYA Gordon p #:[id number] : 1940 85 From: Jim Jones MD PCP: Dr. Eh Huddleston MD Status:ADM I N Y Race: C Location: [place]3 [place]323 -1 Anesthesia Postop Eval I Sum Postop Eval Completion status Anesthesia document: Postop Eval 1 completed: Yes Anesthesia Postop Eval I Summary Anesthesia Postop Eval I Summary: Anesthesia Postop Eval I: Assessment Summary Airway patent Yes 05/09/25 10:52 Spontaneous unlabored Yes 05/09/25 10:52 respirations Mental status Awake,Calm 05/09/25 10:52 nausea No 05/09/25 10:52 Vomiting No 05/09/25 10:52 Anesthesia Postop Eval I: Fluid Summary Crystalloid volume administer 700 05/09/25 10:52 (ml) Colloids volume administered ( ml) Blood Product volume 1 05/09/25 10:52 administered (ml) Total IV fluid infused 701 05/09/25 10:52 Anesthesia Postop Eval I: Summary Notes Anesthesia Complication No 05/09/25 10:52 Anesthesia Complication Comment: Post-operative progress note 1 unit prbc intra 05/09/25 10:52 op Anesthesia: Postop Eval II Evaluation Mental status: Awake Pain Level: 0 nausea: No Vomiting: No 05/09/25 1052 <Electronically signed by Jim Jones MD > Date _ Jim Jones MD Cosigner Signature: Date CC: ~ Signed [facility] Work Phone: 1([phone] 163-846907-13-2025 Procedure note [facility] Medical Records Department [facility] [place] [address] Operative Report 05/09/25 1101 MR#: [id number] Acct: [id number] Name: GOGO WARE p #:[id number] : 1940 85 From: Santhosh randolph DO PCP: Dr. Eh Huddleston MD Status:ADM I N Location: [place] [address] Operative Report (Standard) Operative Information Date of Procedure: 05/09/25 Pre-Operative Diagnosis: Left distal femoral shaft spiral fracture Post-Operative Diagnosis: Left distal femoral shaft spiral fracture Surgery/Procedure Performed: Open reduction internal fixation left femoral shaft keymodule assembly supervisor: Yes Lumber Buyer: Samantha Ordaz Tasks completed by personal banking assistant: Opening & closing, Implanting device, Hemostasis: Electrocautery and Retracting Additional psychologist research assistant?: No Type of Anesthesia: General RN Documented Start/Stop Times: Operation Date: 05/09/25 08:20 Case Time Anesthesia Start 05/09/25 07:59 Into Room 05/09/25 07:59 Procedure Start 05/09/25 08:32 Procedure End 05/09/25 10:42 Anesthesia End 05/09/25 10:47 Out of Room 05/09/25 10:47 Into Recovery 05/09/25 10:50 Procedure Start Time: 08:32 Procedure Stop Time: 10:42 Select all DRAINS/GRAFTS/IMPLANTS that apply: Implanted device Implanted device details: Scott Brian Pro 4.5 mm distal femur plate 355 mm left, combination ofcortical and locking screws, Dall-Milescerclage cables x 3 Estimated Blood Loss: 400 cc Specimen collected: No Description of surgery: Patient was identified in the preoperative holding area by name, medical record number, and date ofbirth. The operative extremity was marked. All questions were answered the patient's satisfaction. At time of her procedure, patient was brought to the operative suite and positioned supine on a standard operating table. General anesthesia was inducedand endotracheal tube placed. All bony prominences were well-padded. Patient was then placed in a sloppy lateral position and held in place with a b eanbag. Left arm was brought across patient's chest. We prepped and draped the left lower extremityin a normal, sterile orthopedic fashion. A timeout was performed confirming the side, site, and operation to be performed. No concernswere voiced and we elected to proceed with surgery. 2 g Ancef was administered IV prior to the incision by anesthesia staff. 1 unit packed red blood cells wasalso administered intraoperatively due to preoperative anemia and anticipated blood loss. A standard lateral approach to the femur was performed with full-thickness skin flaps developed down to the level of the IT band. Incision was made from the lateral epicondyle to just distal to the greater trochanter. Bleeders were cauterized. IT band was then opened in line with the incision. Vastus lateralis was carefully elevated from the lateral intermuscular septum cauterizing any perforating vessels. Fracture site was identified. Hematoma was evacuated. Fracture was irrigated. I then had my psychologist research assistant pull traction on the leg while I applied multiple clamps and was able to achieve an anatomic reduction. I then proceeded with placement of 3 cerclage cables for provisionalfixation. Thesewere passed, tensioned and crimped in standard fashion. Tails were then cut flush with the button. I then selected an appropriately sized plate to allow appropriate bypass of the left total hip arthroplasty stem. I compressed the plate to bone with a provisional fixation device proximall and a cancellous screw distally. Acceptable reduction was again confirmed. I then filled the distal cluster with locking screws in standard fashion.Proximally, I placed a bicortical locking screw just distal tothe tip of the femoral stem. Iwas able to drill a bicortical screw in the midportion of the diaphyseal portionof the stem. 2 unicortical locking screws were also placed proximally. Fracture was stable. Wound was irrigated with normal saline solution. Hemostasis was excellent at this time. Field block was administered with 60 cc total 0.25% bupivacaine with epinephrine. The IT band fascia was closed watertight with running, locking barbed #1 strata fix suture. Interrupted [id number] Vicryl suture was used to reapproximate the fatty layer. Dermis was reapproximated with buried 2-0 Vicrylsuture. Skin was finally reapproximated with lakeisha. Silver Mepilex dressing was applied as well as a Alan wrap. Patient was awakened from anesthesia and extubated in the operative suite without diffi culty. She was transferred to her hospital bed and subsequently to PACU in stable condition. She tolerated the procedure well without apparent complication. Postoperative plan: CBC ordered in PACU, possible additional unit of packed red blood cells will be considered Nonweightbearing left lower extremity x 6 weeks. Active range of motion as tolerated the left knee. PT/OT ordered Restart Eliquis postoperative day #1. Plan for 6 weeks postoperative Eliquis therapy. Patient will need placement. Dry sterile dressing changes as needed for saturation. Follow-up at [place] [facility] in 2 weeks for x-rays, staple removal and woundassessment. Plan of care discussed with attending hospitalist. Surgical Findings: Long spiral distal third femoral shaft fracture. Stable following fixation. Complications Complications: No Admit VTE Documentation VTE Present on Admission: Yes VTE Pharm Prophylaxis ordered?: Yes 05/09/25 1112 Cosigner Signature (if applicable): CC: Dr. Santhosh Livingston DO; Dr. Eh Huddleston MD~ Signed [facility]07-13-2025 Consult note [facility] Medical Records Department [address] [facility] [place] [address] Anesthesia Postop Eval I 05/09/25 1051 MR#: [id number] Acct: [id number] Name: GOGO WARE p #:[id number] : 1940 85 From: Jim Jones MD PCP: Dr. Eh Huddleston MD Status:ADM I N Y Race: C Location: [place] [id number] -1 Anesthesia: Postop Eval I Current Vital Signs Temperature: 97.7 F Pulse Rate: 75 Blood Pressure: 137/48 Respiratory Rate: 16 Pulse Ox: 100 Oxygen Delivery Method: Room Air Assessment Airway patent: Yes Spontaneous unlabored respirations: Yes Mental status: Awake and Calm nausea: No Vomiting: No Anesthesia Complication: No Fluid Hydration Crystalloid volume administer (ml): 700 Blood Product volume administered (ml): 1 Total IV fluid infused: 701 Progress Note Post-operative progress note: 1 unit prbc intra op Anesthesia document: Postop Eval 1 completed: Yes 05/09/25 1052 > Date _ Jim Jones MD Cosigner Signature: Date CC: ~ Signed [facility]07-13-2025 Consult note [facility] Medical Records Department [address] [place] [address] Anesthesia Postop Eval II 05/09/25 1052 MR#: [id number] Acct: [id number] Name: GOGO WARE p #:[id number] : 1940 85 From: Jim Jones MD PCP: Dr. Eh Huddleston MD Status:ADM I N Y Race: C Location: [place] [address] 1 Anesthesia Postop Eval I Sum Postop Eval Completion status Anesthesia document: Postop Eval 1 completed: Yes Anesthesia Postop Eval I Summary Anesthesia Postop Eval I Summary: Anesthesia Postop Eval I: Assessment Summary Airway patent Yes 05/09/25 10:52 Spontaneous unlabored Yes 05/09/25 10:52 respirations Mental status Awake,Calm 05/09/25 10:52 nausea No 05/09/25 10:52 Vomiting No 05/09/25 10:52 Anesthesia Postop Eval I: Fluid Summary Crystalloid volume administer 700 05/09/25 10:52 (ml) Colloids volume administered ( ml) Blood Product volume 1 05/09/25 10:52 administered (ml) Total IV fluid infused 701 05/09/25 10:52 Anesthesia Postop Eval I: Summary Notes Anesthesia Complication No 05/09/25 10:52 Anesthesia Complication Comment: Post-operative progress note 1 unit prbc intra 05/09/25 10:52 op Anesthesia: Postop Eval II Evaluation Mental status: Awake Pain Level: 0 nausea: No Vomiting: No 05/09/25 1052 > Date _ Jim Jones MD Cosigner Signature: Date CC: ~ Signed [facility]07-13-2025 Radiology Diagnostic study note [facility] Imaging Services [address] [place] [address] Femur Min 2 Views MR#: [id number] Acct: [id number] Name: GOGO WARE Rep #: [id number] : 1940 F 85 From: Paola Hammonds MD PCP: Dr. Eh Huddleston MD Status: ADM I N Study:Femur Min 2 Views Date of Exam: Exam# [id number] Ordering Dr: Santhosh Livingston DO PROCEDURE: FEMUR MIN 2 VIEWS 05/09/2025 REASON FOR EXAM: ORIF DISTAL FEMUR TECHNIQUE: FEMUR MIN 2 VIEWS FINDINGS: 8 intraoperative images demonstrate fluoroscopic assistance provided in the operating room for internal fixation of the femur with side plate and multiple screws RAD/Femur Min 2 Views IMPRESSION: Anatomic alignment [facility] CC: Dr. Santhosh Livingston DO; Dr. Eh Huddleston MD ~ General Studies Program Chair: Signed [facility]07-13-2025 Consult note Author Jim Jones [facility] Note Date/Time May 09, 2025 7:41 am [facility] Medical Records Department [address] [place] [address] Pre-Anesthesia Evaluation 05/09/25 0740 MR#: [id number] Acct: [id number] Name: GOGO WARE Re p #:[id number] : 1940 85 From: Jim Jones MD PCP: Dr. Eh Huddleston MD Status:ADM I N Y Race: C Location: [place] [address] ASA Classification* ASA Classification ASA Classification: 3 and E Assessment & Plan Anesthesia* Anesthesia Assessment Anesthesia Assessment: Discussed sedation and/or anesthesia options, risks, benefits, and alternatives with patient/parents/legal guardian/POA. Questions invited. The patient/parents/legal guardian/POA seems to understand and agrees to proceedwith anesthesia plan. Reviewed the physical assessment, medical history, allergy history and patient home medications list prior to surgery/procedure/anesthetic and documented any changes. Performed airway and anesthesia risk assessments. Anesthesia Type Anesthesia Type: General (ET TUBE, Severe3 Aortic stenosis) Anesthesia Focused Assessment* Temperature: 97.7 F Pulse Rate: 62 Blood Pressure: 138/58 Respiratory Rate: 16 Pulse Ox: 100 Airway Assessment Mouth opens: >3 cm Mallampati Score: II Labs Anesthesia Preop lab: CBC WBC 8.8 K/mm3 (4.4-11.0) 05/08/25 05:45 05/08/25 RBC 3.05 M/mm3 (4.2-5.4) L 05/08/25 05:45 05/08/25 Hgb 8.5 g/dL (12.0-15.0) L 05/09/25 06:45 05/09/25 Hct 25.3 % (37-47) L 05/09/25 06:45 05/09/25 Plt Count 152 K/mm3 (150-450) 05/08/25 05:45 05/08/25 CHEMISTRY Potassium 4.0 mmol/L (3.3-5.1) 05/08/25 05:45 05/08/25 Sodium 138 mmol/L (133-145) 05/08/25 05:45 05/08/25 Magnesium 1.7 mg/dL (1.6-2.6) 11/25/17 21:04 11/25/17 BUN 38 mg/dL (4-19) H 05/08/25 05:45 05/08/25 Creatinine 1.09 mg/dL (0.70-1.20) 05/08/25 05:45 05/08/25 Glucose 153 mg/dL (70-99) H 05/08/25 05:45 05/08/25 POC Glucose 106 mg/dL (70-110) 11/28/17 11:33 11/28/17 TSH 1.610 uIU/mL (0.300-4.200) 03/31/25 13:44 06/0 02/19 COAG PT 15.5 SECONDS (11.7-14.9) H 05/08/25 05:45 04/27 12/22 Pre-Assessment Diagnosis/Proposed Procedure Planned Operative Procedure(s): ORIF Distal femur fracture Anesthesia History 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 When Was Last Pacemaker Check QUESTION #4 FULL TEXT: You/Your Family Experience fever (hyperthermia) with Anesthesia Last Oral Intake Last Oral intake: Last Oral Intake NPO since 00:00 05/09/25 06:27 Meds taken in AM with sips of No 05/09/25 06:27 water? Meds patient instructed to take am of surgery PONV PONV - surface water technician: PONV - surface water technician Female HX of Motion Sickness HX of N/V After Surgery Non-Smoker Duration of Surgery greater than 60 minutes Number of Risk Factors PONV Score Height & Weight Height & Weight: Anesthesia: Height & Weight Height 5 ft 5.5 in 05/09/25 06:27 Weight: 75.6 kg 05/09/25 06:27 Body Mass Index (BMI) 27.3 05/09/25 06:27 Respiratory Assessment Respiratory Assessment - surface water technician: Respiratory Tract Infection Hx - surface water technician Hx Respiratory Tract Infection No 05/08/25 22:56 STOP Sleep Apnea STOP Sleep Apnea - surface water technician: STOP Sleep Apnea - surface water technician Hx Hypertension No 05/09/25 07:11 Hx Sleep Apnea No 05/07/25 15:30 CPAP BIPAP Do you snore loudly (louder No 05/07/25 15:30 than talking or can be heard Do you often feel tired/ Yes 05/07/25 15:30 fatigued/ sleepy during daytime? Has anyone observed you stop No 05/07/25 15:30 breathing during sleep? STOP Results Negative 05/07/25 15:30 QUESTION #5 FULL TEXT : Do you snore loudly (louder than talking or can be heard through closed doors)? 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 Specify any problems Hx of Preganancy in last 3 N/A 05/07/25 15:30 Months Nurse Filling Out Transfusion [email or web address] 05/07/25 15:30 & Questions: Date: 05/07/25 05/07/25 15:30 Time: 15:50 05/07/25 15:30 Patient unable to answer at this time (ie. 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 Hx Now No 05/08/25 22:56 Gestational Age (in weeks): EDC: Hx Hx Para Hx Section SAB No 05/08/25 22:56 Active Medications Active Medications: Current Medications Generic Name Dose Route Start Last Admin Trade Name Freq PRN Reason Stop Dose Admin Acetaminophen 650 mg 05/07/25 15:28 Acetaminophen 325 Mg Tablet PO Q6H PRN PRN Pain 1-10 Or Fever >100.7 Aspirin 81 mg 05/08/25 08:00 05/08/25 09:51 Aspirin 81 Mg Tab.Chew PO Not Given BREAKFAST ROBE Atorvastatin Calcium 40 mg 05/07/25 22:00 05/08/25 22:59 Atorvastatin Calcium 40 Mg Tablet PO Not Given QHS ROBE Brimonidine Tartrate 1 drp 05/07/25 22:00 05/08/25 17:39 Brimonidine 0.2% 5ml Bottle EACH EYE 1 drp BID ROBE Administration Carvedilol 12.5 mg 05/07/25 17:00 05/08/25 17:38 Carvedilol 12.5 Mg Tablet PO 12.5 mg BIDCM ROBE Administration Protocol Dorzolamide/Timolol 1 drp 05/07/25 22:00 05/08/25 22:58 Dorzolamide Hcl/Timolol 10 Ml Bottle EACH EYE 1 drp BID ROBE Administration Heparin Sodium (Porcine) 5,000 unit 05/07/25 22:00 05/08/25 22:58 Heparin Injection (Vial) 5,000 Unit/Ml Vial SC 5,000 unit Q12 ROBE Administration Hydromorphone HCl 0.5 - 1 mg 05/07/25 15:28 Hydromorphone 1 Mg/Ml Syringe IV Q3H PRN PRN Pain Score 6-10 Sodium Chloride 250 mls @ 15 mls/hr 05/07/25 16:06 IV .[id number] PRN Saline Flush Sodium Chloride 250 mls @ 15 mls/hr 05/07/25 16:06 IV .[id number] PRN Additional IVPB Infusion Sodium Chloride 250 mls @ 15 mls/hr 05/08/25 17:50 IV .[id number] PRN Saline Flush Sodium Chloride 250 mls @ 15 mls/hr 05/08/25 17:50 IV .[id number] PRN Additional IVPB Infusion Latanoprost 1 drp 05/07/25 22:00 05/08/25 22:58 Latanoprost 0.005% 1 Bottle OPHTHALMIC 1 drp QHS ROBE Administration Losartan Potassium 25 mg 05/08/25 10:00 05/08/25 09:48 Losartan Potassium 25 Mg Tablet PO 25 mg DAILY ROBE Administration Protocol Ondansetron HCl 4 mg 05/07/25 15:28 Ondansetron 4 Mg/2 Ml Vial IV Q8H PRN PRN NAUSEA/VOMITING Oxycodone HCl 10 mg 05/07/25 15:28 Oxycodone 5 Mg Tablet PO Q4H PRN PRN Pain Score 4-10 Senna/Docusate Sodium 2 tablet 05/07/25 22:00 05/08/25 22:59 Senna/Docusate Sodium 1 Tablet PO 2 tablet BID ROBE Administration Sodium Chloride 10 - 40 ml 05/07/25 16:06 0.9% Saline Lock 10 Ml Syringe IV UD PRN SALINE FLUSH Sodium Chloride 10 - 40 ml 05/08/25 17:50 0.9% Saline Lock 10 Ml Syringe IV UD PRN SALINE FLUSH Temazepam 30 mg 05/07/25 22:00 05/08/25 23:06 Temazepam 15 Mg Capsule PO 30 mg QHS PRN Administration SLEEP PFSH Medical History Laceration of leg Closed head injury Abrasions of multiple sites Laceration of lip Pure hypercholesterolemia Nonrheumatic aortic (valve) stenosis Non-ST elevation (NSTEMI) myocardial infarction 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 Essential hypertension Seborrheic keratosis Generalized weakness Fall Home Medications ?Medication ?Instructions ?Recorded ?Last Taken ?Type brimonidine 0.2 % eye drops 2 drp EACH EYE BID glaucom a 11/25/17 11/25/17 History dorzolamide 22.3 mg-timolol 6.8 1 drp EACH EYE BID gla ucoma 11/25/17 11/25/17 History mg/mL eye drops latanoprost 0.005 % eye drops 1 drp ophthalmic (eye) Q PM 12/17/19 Unknown History carvedilol 12.5 mg tablet 12.5 mg PO BID #180 tabs 05/21 Unknown Rx apixaban 5 mg tablet (Eliquis) 5 mg PO BID 05/07/25 Un known History clopidogrel 75 mg tablet 75 mg PO DAILY 05/07/25 Unkn own History temazepam 30 mg capsule 30 mg PO DAILY 05/07/25 Unkn own History valsartan 160 mg tablet 80 mg PO DAILY 05/07/25 Unkn own History Allergy/AdvReac Type Severity Reaction Status Date / Time No Known Allergies Allergy Verified 03/16/24 14:09 Family History Father Diabetes Grandmother Colon cancer Surgical History History of left heart catheterization (LHC) (~12/27/17) History of bilateral hip replacements Social History Smoking Status: Never smoker alcohol intake: current alcohol intake frequency: holidays/special occasions only Alcohol type: wine substance use type: does not use caffeine: Yes Type: coffee what type of physical activity do you participate in: none seatbelt use: always do you feel safe at home: Yes Review of Systems (Anesthesia) ROS Narrative System reviewed and no additional complaints, except as documented. 05/09/25 0741 <Electronically signed by Jim Jones MD > Date _ Jim Jones MD Cosigner Signature: Date CC: ~ Signed [facility] Work Phone: [phone] Consult note [facility] Medical Records Department [address] [place] [address] Pre-Anesthesia Evaluation 05/09/25 0740 MR#: [id number] Acct: [id number] Name: GOGO WARE p #:[id number] : 1940 85 From: Jim Jones MD PCP: Dr. Eh Huddleston MD Status:ADM I N Y Race: C Location: [place] [address] ASA Classification* ASA Classification ASA Classification: 3 and E Assessment & Plan Anesthesia* Anesthesia Assessment Anesthesia Assessment: Discussed sedation and/or anesthesia options, risks, benefits, and alternatives with patient/parents/legal guardian/POA. Questions invited. The patient/parents/legal guardian/POA seems to understand and agrees to proceedwith anesthesia plan. Reviewed the physical assessment, medical history, allergy history and patient home medications list prior to surgery/procedure/anesthetic and documented any changes. Performed airway and anesthesia risk assessments. Anesthesia Type Anesthesia Type: General (ET TUBE, Severe3 Aortic stenosis) Anesthesia Focused Assessment* Temperature: 97.7 F Pulse Rate: 62 Blood Pressure: 138/58 Respiratory Rate: 16 Pulse Ox: 100 Airway Assessment Mouth opens: >3 cm Mallampati Score: II Labs Anesthesia Preop lab: CBC WBC 8.8 K/mm3 (4.4-11.0) 05/08/25 05:45 05/08/25 RBC 3.05 M/mm3 (4.2-5.4) L 05/08/25 05:45 05/08/25 Hgb 8.5 g/dL (12.0-15.0) L 05/09/25 06:45 05/09/25 Hct 25.3 % (37-47) L 05/09/25 06:45 05/09/25 Plt Count 152 K/mm3 (150-450) 05/08/25 05:45 05/08/25 CHEMISTRY Potassium 4.0 mmol/L (3.3-5.1) 05/08/25 05:45 05/08/25 Sodium 138 mmol/L (133-145) 05/08/25 05:45 05/08/25 Magnesium 1.7 mg/dL (1.6-2.6) 11/25/17 21:04 11/25/17 BUN 38 mg/dL (4-19) H 05/08/25 05:45 05/08/25 Creatinine 1.09 mg/dL (0.70-1.20) 05/08/25 05:45 05/08/25 Glucose 153 mg/dL (70-99) H 05/08/25 05:45 05/08/25 POC Glucose 106 mg/dL (70-110) 11/28/17 11:33 11/28/17 TSH 1.610 uIU/mL (0.300-4.200) 03/31/25 13:44 0602/19 COAG PT 15.5 SECONDS (11.7-14.9) H 05/08/25 05:45 04/27 12/22 Pre-Assessment Diagnosis/Proposed Procedure Planned Operative Procedure(s): ORIF Distal femur fracture Anesthesia History 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 When Was Last Pacemaker Check QUESTION #4 FULL TEXT: You/Your Family Experience fever (hyperthermia) with Anesthesia Last Oral Intake Last Oral intake: Last Oral Intake NPO since 00:00 05/09/25 06:27 Meds taken in AM with sips of No 05/09/25 06:27 water? Meds patient instructed to take am of surgery PONV PONV - surface water technician: PONV - surface water technician Female HX of Motion Sickness HX of N/V After Surgery Non-Smoker Duration of Surgery greater than 60 minutes Number of Risk Factors PONV Score Height & Weight Height & Weight: Anesthesia: Height & Weight Height 5 ft 5.5 in 05/09/25 06:27 Weight: 75.6 kg 05/09/25 06:27 Body Mass Index (BMI) 27.3 05/09/25 06:27 Respiratory Assessment Respiratory Assessment - surface water technician: Respiratory Tract Infection Hx - surface water technician Hx Respiratory Tract Infection No 05/08/25 22:56 STOP Sleep Apnea STOP Sleep Apnea - surface water technician: STOP Sleep Apnea - surface water technician Hx Hypertension No 05/09/25 07:11 Hx Sleep Apnea No 05/07/25 15:30 CPAP BIPAP Do you snore loudly (louder No 05/07/25 15:30 than talking or can be heard Do you often feel tired/ Yes 05/07/25 15:30 fatigued/ sleepy during daytime? Has anyone observed you stop No 05/07/25 15:30 breathing during sleep? STOP Results Negative 05/07/25 15:30 QUESTION #5 FULL TEXT : Do you snore loudly (louder than talking or can be heard through closeddoors)? 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 Specify any problems Hx of Preganancy in last 3 N/A 05/07/25 15:30 Months Nurse Filling Out Transfusion [email or web address] 05/07/25 15:30 & Questions: Date: 05/07/25 05/07/25 15:30 Time: 15:50 05/07/25 15:30 Patient unable to answer at this time (ie. 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 Hx Now No 05/08/25 22:56 Gestational Age (in weeks): EDC: Hx Hx Para Hx Section SAB No 05/08/25 22:56 Active Medications Active Medications: Current Medications Generic Name Dose Route Start Last Admin Trade Name Freq PRN Reason Stop Dose Admin Acetaminophen 650 mg 05/07/25 15:28 Acetaminophen 325 Mg Tablet PO Q6H PRN PRN Pain 1-10 Or Fever >100.7 Aspirin 81 mg 05/08/25 08:00 05/08/25 09:51 Aspirin 81 Mg Tab.Chew PO Not Given BREAKFAST ROBE Atorvastatin Calcium 40 mg 05/07/25 22:00 05/08/25 22:59 Atorvastatin Calcium 40 Mg Tablet PO Not Given QHS ROBE Brimonidine Tartrate 1 drp 05/07/25 22:00 05/08/25 17:39 Brimonidine 0.2% 5ml Bottle EACH EYE 1 drp BID ROBE Administration Carvedilol 12.5 mg 05/07/25 17:00 05/08/25 17:38 Carvedilol 12.5 Mg Tablet PO 12.5 mg BIDCM ROBE Administration Protocol Dorzolamide/Timolol 1 drp 05/07/25 22:00 05/08/25 22:58 Dorzolamide Hcl/Timolol 10 Ml Bottle EACH EYE 1 drp BID ROBE Administration Heparin Sodium (Porcine) 5,000 unit 05/07/25 22:00 05/08/25 22:58 Heparin Injection (Vial) 5,000 Unit/Ml Vial SC 5,000 unit Q12 ROBE Administration Hydromorphone HCl 0.5 - 1 mg 05/07/25 15:28 Hydromorphone 1 Mg/Ml Syringe IV Q3H PRN PRN Pain Score 6-10 Sodium Chloride 250 mls @ 15 mls/hr 05/07/25 16:06 IV .[id number] PRN Saline Flush Sodium Chloride 250 mls @ 15 mls/hr 05/07/25 16:06 IV .[id number] PRN Additional IVPB Infusion Sodium Chloride 250 mls @ 15 mls/hr 05/08/25 17:50 IV .[id number] PRN Saline Flush Sodium Chloride 250 mls @ 15 mls/hr 05/08/25 17:50 IV .[id number] PRN Additional IVPB Infusion Latanoprost 1 drp 05/07/25 22:00 05/08/25 22:58 Latanoprost 0.005% 1 Bottle OPHTHALMIC 1 drp QHS ROBE Administration Losartan Potassium 25 mg 05/08/25 10:00 05/08/25 09:48 Losartan Potassium 25 Mg Tablet PO 25 mg DAILY ROBE Administration Protocol Ondansetron HCl 4 mg 05/07/25 15:28 Ondansetron 4 Mg/2 Ml Vial IV Q8H PRN PRN NAUSEA/VOMITING Oxycodone HCl 10 mg 05/07/25 15:28 Oxycodone 5 Mg Tablet PO Q4H PRN PRN Pain Score 4-10 Senna/Docusate Sodium 2 tablet 05/07/25 22:00 05/08/25 22:59 Senna/Docusate Sodium 1 Tablet PO 2 tablet BID ROBE Administration Sodium Chloride 10 - 40 ml 05/07/25 16:06 0.9% Saline Lock 10 Ml Syringe IV UD PRN SALINE FLUSH Sodium Chloride 10 - 40 ml 05/08/25 17:50 0.9% Saline Lock 10 Ml Syringe IV UD PRN SALINE FLUSH Temazepam 30 mg 05/07/25 22:00 05/08/25 23:06 Temazepam 15 Mg Capsule PO 30 mg QHS PRN Administration SLEEP PFSH Medical History Laceration of leg Closed head injury Abrasions of multiple sites Laceration of lip Pure hypercholesterolemia Nonrheumatic aortic (valve) stenosis Non-ST elevation (NSTEMI) myocardial infarction 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 Essential hypertension Seborrheic keratosis Generalized weakness Fall Home Medications ?Medication ?Instructions ?Recorded ?Last Taken ?Type brimonidine 0.2 % eye drops 2 drp EACH EYE BID glaucom a 11/25/17 11/25/17 History dorzolamide 22.3 mg-timolol 6.8 1 drp EACH EYE BID gla ucoma 11/25/17 11/25/17 History mg/mL eye drops latanoprost 0.005 % eye drops 1 drp ophthalmic (eye) Q PM 12/17/19 Unknown History carvedilol 12.5 mg tablet 12.5 mg PO BID #180 tabs 05/21 Unknown Rx apixaban 5 mg tablet (Eliquis) 5 mg PO BID 05/07/25 Un known History clopidogrel 75 mg tablet 75 mg PO DAILY 05/07/25 Unkn own History temazepam 30 mg capsule 30 mg PO DAILY 05/07/25 Unkn own History valsartan 160 mg tablet 80 mg PO DAILY 05/07/25 Unkn own History Allergy/AdvReac Type Severity Reaction Status Date / Time No Known Allergies Allergy Verified 03/16/24 14:09 Family History Father Diabetes Grandmother Colon cancer Surgical History History of left heart catheterization (LHC) (~12/27/17) History of bilateral hip replacements Social History Smoking Status: Never smoker alcohol intake: current alcohol intake frequency: holidays/special occasions only Alcohol type: wine substance use type: does not use caffeine: Yes Type: coffee what type of physical activity do you participate in: none seatbelt use: always do you feel safe at home: Yes Review of Systems (Anesthesia) ROS Narrative System reviewed and no additional complaints, except as documented. 05/09/25 0741 > Date _ Jim Wesley Signature: Date CC: ~ Signed [facility]07-12-2025 Progress note Author Sourav Casiano [facility] Note Date/Time May 08, 2025 6:47 pm [facility] Medical Records Department [address] [place] [address] Progress Note - Hospitalist 05/08/25 1845 MR#: [id number] Acct: [id number] Name: GOGO WARE p #:[id number] : 1940 85 From: Sourav Casiano DO PCP: Dr. Eh Huddleston MD Status:ADM I N Location: [place] [address] Reason for Visit Reason for Visit: Diagnoses Unspecified fracture of lower end of unspecified femur, initial encounter for closed fracture (05/07/25) Subjective Subjective Patient was seen in exam today, she will be going for surgery in the morning to repair her left femur fracture. Patient has no specific complaints except for left leg pain Objective Data Objective Data Vital Signs: Vital Signs Temp Pulse Resp BP Pulse Ox O2 Del Method 97.9 F 75 16 130/63 H 100 Room Air 05/08/25 17:58 05/08/25 17:58 05/08/25 17:58 05/08/25 17:58 05/08/25 17:58 05/08/25 17:58 Oxygen Delivery Method Room Air Weight: 75.296 kg Body Mass Index (BMI) 27.1 Intake & Output: Intake and Output for Last 24 Hours 05/06/25 05/07/25 05/08/25 23:59 23:59 23:59 Intake Total 1300 / 1300 Output Total 250 / 250 500 / 500 Balance -250 / 50 800 / 800 Lab / Micro Data 05/08/25 05:45 05/08/25 05:45 Labs: Laboratory Results - last 24 hr 05/07/25 18:36: Blood Type AB POSITIVE, Antibody Screen NEGATIVE 05/08/25 05:45: WBC 8.8, RBC 3.05 L, Hgb 9.5 L, Hct 28.0 L, MCV 91.8, MCH 31.1, MCHC 33.9, RDW Std Deviation 45.3 H, RDW Coeff of Alex 13.4, Plt Count 152, MPV 10.7, Immature Gran % (Auto) 0.100, Neut % (Auto) 73.9 H, Lymph % (Auto) 15.4 L,Stanly % (Auto) 10.2 H, Eos % (Auto) 0.2, Baso % (Auto) 0.2, Absolute Neuts (auto)6.5, Absolute Lymphs (auto) 1.35, Nucleated RBC % 0, PT 15.5 H, INR 1.2, Sodium 138, Potassium 4.0, Chloride 105, Carbon Dioxide 21.1, Anion Gap 12, BUN 38 H, Creatinine 1.09, Estim Creat Clear Calc 37.62 L, Est GFR (MDRD) Non-Af 49 L, BUN/Creatinine Ratio 35.2 H, Glucose 153 H, Calcium 9.0 Physical Exam Narrative alert, oriented x3, no apparent distress and healthy appearing Constitutional Narrative: Patient appears much younger than her stated age General Appearance: cooperative, well kempt and well developed Orientation / Consciousness: awake, oriented to person, oriented to place and oriented to time HEENT normocephalic, head/scalp atraumatic, hearing grossly normal bilaterally and moist oral mucous membranes Eyes PERRL, EOMs intact bilaterally and conjunctivae normal Neck supple, no JVD, thyroid normal and no carotid bruits General: trachea midline Resp normal respiratory effort, no retractions, no use of accessory muscles and clearto auscultation bilaterally Auscultation: Negative for rales, rhonchi or wheezes Cardio regular rate, regular rhythm, S1 normal heart sound, S2 normal heart sound, no murmurs, no rub and no gallops GI normal to inspection, nondistended, normoactive bowel sounds, soft to palpation,non-tender and non-distended Skin no rashes or lesions noted General Skin Exam: no breakdown Neuro oriented x3, CN's II-XII intact bilaterally, no focal motor deficits and no sensory deficits noted Sensorium / Orientation: awake and alert Speech: speech normal Psych affect normal Assessment & Plan Assessment/Plan (1) Femoral distal fracture: QUALIFIERS: Encounter type: initial encounter Fracture type: closed Laterality: left PLAN: Plan 1. Left distal femur fracture secondary to osteoporosis-patient appears stable for surgery at this time #2 history of valvular heart disease with recent TAVR-patient appears medically stable #3 coronary artery disease-patient appears medically stable at this time, I willhold her Plavix for now #4 essential hypertension-patient will remain on her current medications #5 chronic use of anticoagulant-patient's Eliquis will be held for now because of her upcoming surgery tomorrow #6 glaucoma-patient will remain on her eyedrops #7 acute anemia secondary to left distal femur fracture-patient's hemoglobin this morning was 9.5, I will recheck her H&H in the morning. Total clinical time spent by myself addressing the patient's medical issues, reviewing all of her data, and collaborating with patient's care team: 35-minute Charges/Coding Visit Charges Inpatient E&M: 04091 Subs Hosp L2 05/08/251846 <Electronically signed by Sourav Casiano DO> Cosigner Signature (if applicable): CC: ~ Signed [facility] Work Phone: 1(243) 547-497107-12-2025 Progress note [facility] Medical Records Department [address] [place] [id number] Progress Note - Hospitalist 05/08/251844 MR#: [id number] Acct: [id number] Name: GOGO WARE p #:[id number] : 1940 85 From: Sourav Casiano DO PCP: Dr. Eh Huddleston MD Status:ADM I N Location: [place] [id number] Reason for Visit Reason for Visit: Diagnoses Unspecified fracture of lower end of unspecified femur, initial encounter for closed fracture (05/07/25) Subjective Subjective Patient was seen in exam today, she will be going for surgery in the morning to repair her left femur fracture. Patient has no specific complaints except for left leg pain Objective Data Objective Data Vital Signs: Vital Signs Temp Pulse Resp BP Pulse Ox O2 Del Method 97.9 F 75 16 130/63 H 100 Room Air 05/08/25 17:58 05/08/25 17:58 05/08/25 17:58 05/08/25 17:58 05/08/25 17:58 05/08/25 17:58 Oxygen Delivery Method Room Air Weight: 75.296 kg Body Mass Index (BMI) 27.1 Intake & Output: Intake and Output for Last 24 Hours 05/06/25 05/07/25 05/08/25 23:59 23:59 23:59 Intake Total 1300 / 1300 Output Total 250 / 250 500 / 500 Balance -250 / 50 800 / 800 Lab / Micro Data 05/08/25 05:45 05/08/25 05:45 Labs: Laboratory Results - last 24 hr 05/07/25 18:36: Blood Type AB POSITIVE, Antibody Screen NEGATIVE 05/08/25 05:45: WBC 8.8, RBC 3.05 L, Hgb 9.5 L, Hct 28.0 L, MCV 91.8, MCH 31.1, MCHC 33.9, RDW Std Deviation 45.3 H, RDW Coeff of Alex 13.4, Plt Count 152, MPV 10.7, Immature Gran % (Auto) 0.100, Neut% (Auto) 73.9 H, Lymph % (Auto) 15.4 L,Stanly % (Auto) 10.2 H, Eos % (Auto) 0.2, Baso % (Auto) 0.2, Absolute Neuts (auto)6.5, Absolute Lymphs (auto) 1.35, Nucleated RBC % 0, PT 15.5 H, INR 1.2, Sodium 138, Potassium 4.0, Chloride 105, Carbon Dioxide 21.1, Anion Gap 12, BUN 38 H, Creatinine 1.09, Estim Creat Clear Calc 37.62 L, Est GFR (MDRD) Non-Af 49 L, BUN/Creatinine Ratio 35.2 H, Glucose 153 H, Calcium 9.0 Physical Exam Narrative alert, oriented x3, no apparent distress and healthy appearing Constitutional Narrative: Patient appears much younger than her stated age General Appearance: cooperative, well kempt and well developed Orientation / Consciousness: awake, oriented to person, oriented to place and oriented to time HEENT normocephalic, head/scalp atraumatic, hearing grossly normal bilaterally and moist oral mucous membranes Eyes PERRL, EOMs intact bilaterally and conjunctivae normal Neck supple, no JVD, thyroid normal and no carotid bruits General: trachea midline Resp normal respiratory effort, no retractions, no use of accessory muscles and clearto auscultation bilaterally Auscultation: Negative for rales, rhonchi or wheezes Cardio regular rate, regular rhythm, S1 normal heart sound, S2 normal heart sound, no murmurs, no rub and no gallops GI normal to inspection, nondistended, normoactive bowel sounds, soft to palpation,non-tender and non-distended Skin no rashes or lesions noted General Skin Exam: no breakdown Neuro oriented x3, CN's II-XII intact bilaterally, no focal motor deficits and no sensory deficits noted Sensorium / Orientation: awake and alert Speech: speech normal Psych affect normal Assessment & Plan Assessment/Plan (1) Femoral distal fracture: QUALIFIERS: Encounter type: initial encounter Fracture type: closed Laterality: left PLAN: Plan 1. Left distal femur fracture secondary to osteoporosis-patient appears stable for surgery at this time #2 history of valvular heart disease with recent TAVR-patient appears medically stable #3 coronary artery disease-patient appears medically stable at this time, I willhold her Plavix fornow #4 essential hypertension-patient will remain on her current medications #5 chronic use of anticoagulant-patient's Eliquis will be held for now because of her upcoming surgery tomorrow #6 glaucoma-patient will remain on her eyedrops #7 acute anemia secondary to left distal femur fracture-patient's hemoglobin this morning was 9.5, I will recheck her H&H in the morning. Total clinical time spent by myself addressing the patient's medical issues, reviewing all of her data, and collaborating with patient's care team: 35-minute Charges/Coding Visit Charges Inpatient E&M: 96449 Subs Hosp L2 05/08/25 1847 Cosigner Signature (if applicable): CC: ~ Signed [facility]07-11-2025 Consult note Author Santhosh Livingston [facility] Note Date/Time May 07, 2025 5:04 pm [facility] Medical Records Department [address] [place] [address] Consultation - Orthopedics 05/07/25 1658 MR#: [id number] Acct: [id number] Name: CHAZGOGO ANAYA PRITI Gordon p #:[id number] : 1940 85 From: Santhosh randolph DO PCP: Dr. Eh Huddleston MD Status:ADM I N Location: MS3 AB453-2 HPI Consult Data Date of Consult: 05/07/25 HPI Narrative Reason for Consultation: Left femur fracture HPI Narrative: GOGO WARE, is a 85 F who presented to [facility] this morning after mechanical fall from standing height at home. She states she fellon both knees and twisted her left leg. She noted immediate pain and inability bear weight. She was brought to emergency department x-rays revealed a left femur fracture. 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 She is currently on Eliquis and has a follow-up in May and believes she is likely to stop the Eliquis at that time. Her last dose of Eliquis was last evening. She was admitted to the service to hospitalist. I saw the patient in consultation. She denies any other aches or pains. Denies head injury or loss consciousness. Community ambulator without assistive device. She lives alone at home. Denies any problems with anesthesia in the past. Prior left total hip arthroplasty by Dr. Gonzalo Palmer remotely. Denies fevers, chills, nausea vomiting, chest pain or shortness of breath. 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 Essential hypertension Seborrheic keratosis Generalized weakness Fall Home Medications ?Medication ?Instructions ?Recorded ?Last Taken ?Type brimonidine 0.2 % eye drops 2 drp EACH EYE BID glaucom a 11/25/17 11/25/17 History dorzolamide 22.3 mg-timolol 6.8 1 drp EACH EYE BID gla ucoma 11/25/17 11/25/17 History mg/mL eye drops latanoprost 0.005 % eye drops 1 drp ophthalmic (eye) Q PM 12/17/19 Unknown History carvedilol 12.5 mg tablet 12.5 mg PO BID #180 tabs 05/21 Unknown Rx apixaban 5 mg tablet (Eliquis) 5 mg PO BID 05/07/25 Un known History clopidogrel 75 mg tablet 75 mg PO DAILY 05/07/25 Unkn own History temazepam 30 mg capsule 30 mg PO DAILY 05/07/25 Unkn own History valsartan 160 mg tablet 80 mg PO DAILY 05/07/25 Unkn own History Allergy/AdvReac Type Severity Reaction Status Date / Time No Known Allergies Allergy Verified 03/16/24 14:09 Family History Father Diabetes Grandmother Colon cancer Surgical History History of left heart catheterization (LHC) (~12/27/17) History of bilateral hip replacements Social History Smoking Status: Never smoker alcohol intake: current alcohol intake frequency: holidays/special occasions only Alcohol type: wine substance use type: does not use caffeine: Yes Type: coffee what type of physical activity do you participate in: none seatbelt use: always do you feel safe at home: Yes ROS ROS Narrative 12 point review of systems obtained, negative unless otherwise known HPI. Vital Signs Vital Signs Vital Signs: 05/07/25 07:09 05/07/25 07:16 05/07/25 08:08 Temperature 99.1 F Temperature Source Oral Pulse Rate 59 L 68 Respiratory Rate 18 19 H Respiratory Effort Normal Respiratory Depth Normal Respiratory Pattern Normal Blood Pressure 202/87 H 137/91 H Blood Pressure Mean 125 106 Pulse Ox 100 100 Oxygen Delivery Method Room Air Room Air Room Air 05/07/25 09:08 05/07/25 10:00 05/07/25 11:00 Temperature Temperature Source Pulse Rate 72 72 80 Respiratory Rate 17 Respiratory Effort Respiratory Depth Respiratory Pattern Blood Pressure 130/51 H 149/50 H 120/70 Blood Pressure Mean 77 83 86 Pulse Ox 99 98 Oxygen Delivery Method Room Air 05/07/25 12:00 05/07/25 13:00 05/07/25 14:13 Temperature 97.6 F L Temperature Source Pulse Rate 72 75 75 Respiratory Rate 18 12 Respiratory Effort Respiratory Depth Respiratory Pattern Blood Pressure 128/70 H 136/52 H 109/56 L Blood Pressure Mean 89 80 73 Pulse Ox 95 99 97 Oxygen Delivery Method Room Air Weight Weight: 166 lb Body Mass Index (BMI) 27.1 Physical Exam Narrative General -A&Ox3, NAD, appears stated age. Vital signs stable, afebrile. Respiratory -normal work of breathing, no intercostal retractions. CV -pulses regular, brisk capillary refill ?4 limbs. Abdomen-soft, nontender, nondistended. No guarding, rigidity, rebound tenderness. Musculoskeletal/neurologic -full range of motion nontender throughout bilateral upper extremities, lower extremity with full sensation and strength in all dermatomes and myotomes. No midline cervical tenderness.Left lower extremity-knee immobilizer in place. Knee immobilizer was opened. She is appropriately tender in the mid femur. No rashes or lesions, lacerations or abrasions. Briskcapillary refill. Sensation intact light touch L3-S1 dermatomes. DF, PF, EHL intact. DP, PT 2+. Pelvis is stable, nontender. Skin is intact without lacerations, abrasions. No ecchymosis noted. Lab / Micro Data 05/07/25 07:35 05/07/25 07:35 Labs: Laboratory Results - last 24 hr 05/07/25 07:35: WBC 11.0, RBC 4.01 L, Hgb 12.3, Hct 36.8 L, MCV 91.8, MCH 30.7, MCHC 33.4, RDW Std Deviation 43.8, RDW Coeff of Alex 13.0, Plt Count 144 L, MPV 10.2, Immature Gran % (Auto) 0.400, Neut % (Auto) 79.6 H, Lymph % (Auto) 13.4 L,Stanly % (Auto) 4.8, Eos % (Auto) 1.4, Baso % (Auto) 0.4, Absolute Neuts (auto) 8.8 H, Absolute Lymphs (auto) 1.48, Nucleated RBC % 0, Sodium 137, Potassium 4.0, Chloride 103, Carbon Dioxide 24.3, Anion Gap 10, BUN 23 H, Creatinine 0.92,Est GFR (MDRD) Non-Af 61, BUN/Creatinine Ratio 24.8 H, Glucose 143 H, Calcium 9.2 Imaging Radiology Impression Pelvis X-Ray 05/07/25 07:21 IMPRESSION: A spiral FRACTURE of the distal left femoral shaft is seen, with some override also present. No intra-articular extension is clearly evident. 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 In visualized areas, no evidence of prosthesis loosening or metallic fracture is seen. Vascular stent is seen overlying the right femoral neck. Mild sacroiliac joint degenerative changes are noted. Prominent degenerative changes of the visualized lower lumbar spine are seen. [id number] degenerative changes of the visualized portions of the left knee. Reading Location: [address] Femur X-Ray 05/07/25 07:24 IMPRESSION: A spiral FRACTURE of the distal left femoral shaft is seen, with some override also present. No intra-articular extension is clearly evident. 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 In visualized areas, no evidence of prosthesis loosening or metallic fracture is seen. Vascular stent is seen overlying the right femoral neck. Mild sacroiliac joint degenerative changes are noted. Prominent degenerative changes of the visualized lower lumbar spine are seen. [id number] degenerative changes of the visualized portions of the left knee. Reading Location: [address] Assessment & Plan Assessment/Plan (1) Femoral distal fracture: QUALIFIERS: Encounter type: initial encounter Fracture type: closed Laterality: left PLAN: Patient sustained a spiral left distal femoral shaft fracture. Isolated injury, closed injury. Recommend surgical invention in the form of left femur open reduction internal fixation. We discussed the procedure in detail. We discussed the need for weight limited weightbearing postoperatively. We discussed the risks, benefits, alternatives to the procedure. Risks include but are not limited to bleeding, infection, loss of life or limb, need for additional surgery, persistent pain, nonhealing bone or wounds, stiffness, neurovascular injury, DVT or PE, risk of anesthesia. Informed consent was obtained. Recommend delayed surgery until 05/09/2025 due to Eliquis therapy. Hold anticoagulant. Okay for heparin drip if deemed necessary due to recent DVT, defer to hospitalist. N.p.o. after midnight tomorrow night. Maintenance IV fluids. Ancef on-call to the OR. 05/07/25 7503 <Electronically signed by Santhosh Livingston DO> Cosigner Signature (if applicable): CC: Dr. Eh Huddleston MD~ Signed [facility] Work Phone: 1(108) 515-175207-11-2025 History and physical note Author Sourav Casiano [facility] Note Date/Time May 07, 2025 4:41 pm [facility] Medical Records Department [address] [place] [address] H&P Exam - Hospitalist 05/07/25 1634 MR#: [id number] Acct: [id number] Name: GOGO WARE p #:[id number] : 1940 85 From: Sourav Casiano DO PCP: Dr. Eh Huddleston MD Status:ADM I N Location: [facility] [place] AU333-6 HPI - General General Date of Admission: 05/07/25 Date of Service: 05/07/25 Chief Complaint: Left leg injury, inability to ambulate HPI Narrative GOGO WARE, is a 85 F who presents to the emergency room at [facility] after sustaining a mechanical fall at home, she landed on herknees and then had severe left upper leg pain and was unable to bear weight on the left leg. Patient's past medical history includes a TAVR insertion in October 2024, she also has approximately 70% stenosis of one of her coronary arteries which has not changed in several years, she takes clopidogrel chronically. Patient also takes Eliquis due to a VTE in the leg in the past. She did not take her Eliquis today. X-rays obtained in the emergency room showed a spiral fracture of the left leg, initially the patient wanted to be transferred to [facility] if possible due to the fact her dermatology physician assistant was from the main campus but there was not a bed available and she ultimately decided to stay here and have it repaired here. Patient CBC is unremarkable, chemistry profile was unremarkable also. Patient will be admitted to [place] [address], she will be seen by orthopedic surgery most likely undergo ORIF of the left distal femur fracture. 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 Essential hypertension Seborrheic keratosis Generalized weakness Fall Home Medications ?Medication ?Instructions ?Recorded ?Last Taken ?Type brimonidine 0.2 % eye drops 2 drp EACH EYE BID glaucom a 11/25/17 11/25/17 History dorzolamide 22.3 mg-timolol 6.8 1 drp EACH EYE BID gla ucoma 11/25/17 11/25/17 History mg/mL eye drops latanoprost 0.005 % eye drops 1 drp ophthalmic (eye) Q PM 12/17/19 Unknown History carvedilol 12.5 mg tablet 12.5 mg PO BID #180 tabs 05/21 Unknown Rx apixaban 5 mg tablet (Eliquis) 5 mg PO BID 05/07/25 Un known History clopidogrel 75 mg tablet 75 mg PO DAILY 05/07/25 Unkn own History temazepam 30 mg capsule 30 mg PO DAILY 05/07/25 Unkn own History valsartan 160 mg tablet 80 mg PO DAILY 05/07/25 Unkn own History Allergy/AdvReac Type Severity Reaction Status Date / Time No Known Allergies Allergy Verified 03/16/24 14:09 Family History Father Diabetes Grandmother Colon cancer Surgical History History of left heart catheterization (LHC) (~12/27/17) History of bilateral hip replacements Social History Smoking Status: Never smoker alcohol intake: current alcohol intake frequency: holidays/special occasions only Alcohol type: wine substance use type: does not use caffeine: Yes Type: coffee what type of physical activity do you participate in: none seatbelt use: always do you feel safe at home: Yes ROS Constitutional Constitutional: Denies anorexia, change in weight, fever(s), night sweats or weakness Eyes Eyes: Denies blurry vision, change in vision, discharge from eye(s) or eye pain Cardiovascular Cardiovascular: Denies chest pain, claudication, edema or palpitations Respiratory/Chest Respiratory/Chest: Denies cough, hemoptysis, shortness of breath at rest or shortness of breath with exertion Gastrointestinal Gastrointestinal: Denies abdominal pain, constipation, diarrhea, hematemesis, hematochezia, melena, nausea or vomiting Genitourinary Genitourinary: Denies dysuria, hematuria, urinary frequency, urinary hesitancy, urinary incontinence or urinary urgency Musculoskeletal Musculoskeletal: Reports other Details: Severe left upper leg pain with inability to bear weight after a fall today at her home ; Denies back pain, joint pain, joint stiffness, joint swelling, myalgias or neck pain Neurologic Neurologic: Denies abnormal gait, abnormal speech, dizziness, focal weakness, headache(s), loss of vision, numbness, other visual disturbances, paresthesias, syncope or tingling Psychiatric Psychiatric: Denies anxiety, cognitive impairment, depression, irritability, mood swings or suicidal ideation Endocrine Endocrinology: Denies change in body appearance, cold intolerance, excessive sweating, heat intolerance, polydipsia or polyuria Hematologic/Lymphatic Hematologic/Lymphatic: Denies none, anemia, easy bleeding, easy bruising or lymphadenopathy Allergic/Immunologic Allergic/Immunologic: Denies rhinitis, urticaria, eczemia or asthma Vital Signs Vital Signs Vital Signs: 05/07/25 07:09 05/07/25 07:16 05/07/25 08:08 Temperature 99.1 F Temperature Source Oral Pulse Rate 59 L 68 Respiratory Rate 18 19 H Respiratory Effort Normal Respiratory Depth Normal Respiratory Pattern Normal Blood Pressure 202/87 H 137/91 H Blood Pressure Mean 125 106 Pulse Ox 100 100 Oxygen Delivery Method Room Air Room Air Room Air 05/07/25 09:08 05/07/25 10:00 05/07/25 11:00 Temperature Temperature Source Pulse Rate 72 72 80 Respiratory Rate 17 Respiratory Effort Respiratory Depth Respiratory Pattern Blood Pressure 130/51 H 149/50 H 120/70 Blood Pressure Mean 77 83 86 Pulse Ox 99 98 Oxygen Delivery Method Room Air 05/07/25 12:00 05/07/25 13:00 05/07/25 14:13 Temperature 97.6 F L Temperature Source Pulse Rate 72 75 75 Respiratory Rate 18 12 Respiratory Effort Respiratory Depth Respiratory Pattern Blood Pressure 128/70 H 136/52 H 109/56 L Blood Pressure Mean 89 80 73 Pulse Ox 95 99 97 Oxygen Delivery Method Room Air Weight Weight: 75.296 kg Body Mass Index (BMI) 27.1 Physical Exam Const alert, oriented x3, no apparent distress and healthy appearing Constitutional Narrative: Patient appears much younger than her stated age General Appearance: cooperative, well kempt and well developed Orientation / Consciousness: awake, oriented to person, oriented to place and oriented to time HEENT normocephalic, head/scalp atraumatic, hearing grossly normal bilaterally and moist oral mucous membranes Eyes PERRL, EOMs intact bilaterally and conjunctivae normal Neck supple, no JVD, thyroid normal and no carotid bruits General: trachea midline Resp normal respiratory effort, no retractions, no use of accessory muscles and clearto auscultation bilaterally Auscultation: Negative for rales, rhonchi or wheezes Cardio regular rate, regular rhythm, S1 normal heart sound, S2 normal heart sound, no murmurs, no rub and no gallops GI normal to inspection, nondistended, normoactive bowel sounds, soft to palpation,non-tender and non-distended Skin no rashes or lesions noted General Skin Exam: no breakdown Neuro oriented x3, CN's II-XII intact bilaterally, no focal motor deficits and no sensory deficits noted Sensorium / Orientation: awake and alert Speech: speech normal Psych affect normal Results Lab / Micro Data 05/07/25 07:35 05/07/25 07:35 Labs: Laboratory Results - last 24 hr 05/07/25 07:35: WBC 11.0, RBC 4.01 L, Hgb 12.3, Hct 36.8 L, MCV 91.8, MCH 30.7, MCHC 33.4, RDW Std Deviation 43.8, RDW Coeff of Alex 13.0, Plt Count 144 L, MPV 10.2, Immature Gran % (Auto) 0.400, Neut % (Auto) 79.6 H, Lymph % (Auto) 13.4 L,Stanly % (Auto) 4.8, Eos % (Auto) 1.4, Baso % (Auto) 0.4, Absolute Neuts (auto) 8.8 H, Absolute Lymphs (auto) 1.48, Nucleated RBC % 0, Sodium 137, Potassium 4.0, Chloride 103, Carbon Dioxide 24.3, Anion Gap 10, BUN 23 H, Creatinine 0.92,Est GFR (MDRD) Non-Af 61, BUN/Creatinine Ratio 24.8 H, Glucose 143 H, Calcium 9.2 Imaging Radiology Impression Pelvis X-Ray 05/07/25 07:21 IMPRESSION: A spiral FRACTURE of the distal left femoral shaft is seen, with some override also present. No intra-articular extension is clearly evident. 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 In visualized areas, no evidence of prosthesis loosening or metallic fracture is seen. Vascular stent is seen overlying the right femoral neck. Mild sacroiliac joint degenerative changes are noted. Prominent degenerative changes of the visualized lower lumbar spine are seen. [id number] degenerative changes of the visualized portions of the left knee. Reading Location: [id number] Femur X-Ray 05/07/25 07:24 IMPRESSION: A spiral FRACTURE of the distal left femoral shaft is seen, with some override also present. No intra-articular extension is clearly evident. 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 In visualized areas, no evidence of prosthesis loosening or metallic fracture is seen. Vascular stent is seen overlying the right femoral neck. Mild sacroiliac joint degenerative changes are noted. Prominent degenerative changes of the visualized lower lumbar spine are seen. [id number] degenerative changes of the visualized portions of the left knee. Reading Location: [id number] Assessment & Plan Assessment/Plan (1) Femoral distal fracture: PLAN: Plan 1. Left distal femur fracture secondary to osteoporosis-patient was admitted toMedSurg 3 and she will be seen by orthopedic surgery, most likely she will undergo an ORIF of the left femur fracture tomorrow #2 history of valvular heart disease with recent TAVR-patient appears medically stable #3 coronary artery disease-patient appears medically stable at this time, I willhold her Plavix for now #4 essential hypertension-patient will remain on her current medications #5 chronic use of anticoagulant-patient's Eliquis will be held for now because of her upcoming surgery tomorrow #6 glaucoma-patient will remain on her eyedrops Total clinical time spent by myself addressing the patient's medical issues, reviewing all of her data, and collaborating with patient's care team: 55-minute Charges/Coding Visit Charges Inpatient E&M: 03874 Init Hosp L2 05/07/25 1641 <Electronically signed by Sourav Casiano DO> Cosigner Signature (if applicable): CC: Dr. Sourav Casiano DO; Dr. Eh Huddleston MD~ Signed [facility] Work Phone: 1(884) 887-853007-11-2025 Discharge summary Author José Manuel Guzman [facility] Note Date/Time May 07, 2025 4:01 pm [facility] Medical Records Department [address] [place] [address] Emergency Department Summary 05/07/25 MR#: [id number] Acct: [id number] Name: GOGO WARE p #:[id number] : 1940 85 From: José Manuel marie DO PCP: Dr. Eh Huddleston MD Status:ADM I N Location: [place] [address] HPI HPI - Fall History of Present Illness Chief Complaint: Fall Narrative Narrative: Chief complaint and HPI: Left thigh pain. 85-year-old female with past medical history of HTN, HLD, CAD, aortic valve replacement, history of DVT which patientstates she is on Eliquis presents for evaluation of left thigh pain. Patient states this morning she was on her way back from the restroom when she tripped, twisted her left upper leg, and fell on her bilateral knees. States she was unable to ambulate secondary to the left thigh pain. Pain is minimal at rest, increases with movement. She denies any fever, chills, shortness of breath, chest pain abdominal pain, nausea, vomiting, numbness/tingling. Denies hitting her head or neck. No LOC. Review of systems: See HPI Medications: As listed on the chart Allergies: As listed on the chart PFSH: Per chart Vital signs: As listed on the chart. Reviewed. Physical exam: Gen: A&O x3, NAD Head: Normocephalic, atraumatic Eyes: No sclera icterus, conjunctiva clear, PERRL, EOMI ENT: TMs clear BL, moist mucous membranes, atraumatic without tenderness Neck: Trachea midline, No JVD, Nontender, full range of motion CV: RRR, no murmurs, no chest wall TTP Resp: Lungs CTA BL, no w/r/c GI: Abd soft, non-distended, non-tender, no r/r/g Musc: Full ROM of all extremities except the left lower extremity secondary to thigh pain and swelling-left lower extremity is externally rotated and shortened, femoral/DP/PT pulses +2 bilaterally, compartments soft, capillary refill, no spinal TTP, no darion step-offs Skin: Warm, dry, intact Neuro: Alert, oriented, grossly intact, sensation intact, GCS 15 Psych: Cooperative, appropriate mood and affect [facility] Medical History Laceration of leg Closed head injury Abrasions of multiple sites Laceration of lip Pure hypercholesterolemia Nonrheumatic aortic (valve) stenosis Non-ST elevation (NSTEMI) myocardial infarction 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 Essential hypertension Seborrheic keratosis Generalized weakness Fall Home Medications ?Medication ?Instructions ?Recorded ?Last Taken ?Type brimonidine 0.2 % eye drops 2 drp EACH EYE BID glaucom a 11/25/17 11/25/17 History dorzolamide 22.3 mg-timolol 6.8 1 drp EACH EYE BID gla ucoma 11/25/17 11/25/17 History mg/mL eye drops latanoprost 0.005 % eye drops 1 drp ophthalmic (eye) Q PM 12/17/19 Unknown History carvedilol 12.5 mg tablet 12.5 mg PO BID #180 tabs 05/21 Unknown Rx apixaban 5 mg tablet (Eliquis) 5 mg PO BID 05/07/25 Un known History clopidogrel 75 mg tablet 75 mg PO DAILY 05/07/25 Unkn own History temazepam 30 mg capsule 30 mg PO DAILY 05/07/25 Unkn own History valsartan 160 mg tablet 80 mg PO DAILY 05/07/25 Unkn own History Allergy/AdvReac Type Severity Reaction Status Date / Time No Known Allergies Allergy Verified 03/16/24 14:09 Family History Father Diabetes Grandmother Colon cancer Surgical History History of left heart catheterization (LHC) (~12/27/17) History of bilateral hip replacements Social History Smoking Status: Never smoker alcohol intake: current alcohol intake frequency: holidays/special occasions only Alcohol type: wine substance use type: does not use caffeine: Yes Type: coffee what type of physical activity do you participate in: none seatbelt use: always do you feel safe at home: Yes EXAM Physical Exam Const Vital Signs: 05/07/25 07:09 05/07/25 07:16 05/07/25 08:08 Temperature 99.1 F Temperature Source Oral Pulse Rate 59 L 68 Respiratory Rate 18 19 H Respiratory Effort Normal Respiratory Depth Normal Respiratory Pattern Normal Blood Pressure 202/87 H 137/91 H Blood Pressure Mean 125 106 Pulse Ox 100 100 Oxygen Delivery Method Room Air Room Air Room Air 05/07/25 09:08 05/07/25 10:00 05/07/25 11:00 Temperature Temperature Source Pulse Rate 72 72 80 Respiratory Rate 17 Respiratory Effort Respiratory Depth Respiratory Pattern Blood Pressure 130/51 H 149/50 H 120/70 Blood Pressure Mean 77 83 86 Pulse Ox 99 98 Oxygen Delivery Method Room Air 05/07/25 12:00 05/07/25 13:00 Temperature Temperature Source Pulse Rate 72 75 Respiratory Rate 18 Respiratory Effort Respiratory Depth Respiratory Pattern Blood Pressure 128/70 H 136/52 H Blood Pressure Mean 89 80 Pulse Ox 95 99 Oxygen Delivery Method Room Air MDM MDM MDM Narrative Medical decision making narrative: 85-year-old female with past medical history of HTN, HLD, CAD, aortic valve replacement, history of DVT which patient states she is on Eliquis presents forevaluation of left thigh pain. Patient had a mechanical fall today in which shelanded on her bilateral knees. Only endorsing left thigh pain. On presentationit is swollen and tender in the left thigh. Her left lower extremity is externally rotated and shortened. Pulses intact. She is in no acute distress but hypertensive. Patient states she did not take her blood pressure medicationtoday. Currently rating her pain a 3 out of 10. I offered pain medicine but she declined. Suspect femur fracture. Given that patient likely has a fractureand require surgery basic labs ordered with x-ray of the femur and pelvis. Patient does have a history of a right hip replacement that was done in 1999 at [facility]. Her left hip replacement was done at [place] by Dr. Nunez in 2026. She no longer follows an orthopedic surgeon. Patient is on Eliquis however she denies any her head. No LOC. Therefore CT head and neckwill not be ordered. X-ray of the pelvis and femur were personally reviewed andinterpreted by me, ED physician. Patient has a distal left femoral spiral fracture that is partially overriding. Radiology in a [place] agreement. She hasbilateral hip prosthesis without injury to her prosthesis. CBC without leukocytosis or anemia. Patient has thrombocytopenia of 144. BMP relatively unremarkable. Patient will warrant surgery for her femur fracture. I did speakwith Dr. Livingston, plan will be for surgery on Saturday or Saturday given Eliquis. Patient states she took her last dose of Eliquis yesterday evening. Did not take it this morning. Admit to the hospitalist service. I paged out to the hospitalist service however patient wants to be transferred to [facility] as her dermatology physician assistant is there. I did speak with Dr. Casiano about the patient. He accepted admission however we will wait for possible transfer. was updated as well. Will reach out to [facility] orthopedicteam. I was informed by our dental office receptionist that if patient transfers to [facility] she will likely have to pay for the ambulance [id number] given that it is a patient request. I did inform the patient of this, she would like us to look into how much this may cost. I did provide this information to the patient, she states that if her insurance does not cover it she is willing to accept the payment. Transfer line stated that orthopedic physician was in the OR and that he will contact us back on the transfer. Patient had a prolonged stay here in the emergency department as we are waiting for the orthopedic physician from [facility]. I did receive a call back from the transfer line. I actually spoke with the hospitalist service Dr. Carson who accepted transfer as the orthopedic physician consented. However transfer line states nobeds are available at this time. States it may be multiple days before she receives a bed. I did inform the patient of this information. I asked her if she would like me to try another [facility] facility such as [facility]. She is okay with being admitted here at [facility] for the surgery. Our hospitalist service as well as Dr. Livingston was informed of the patient's decision and she will be admitted. Impression: 1. Left distal femur fracture 2. Mechanical fall Lab Data Labs: Laboratory Results - last 24 hr 05/07/25 07:35 WBC 11.0 RBC 4.01 L Hgb 12.3 Hct 36.8 L MCV 91.8 MCH 30.7 MCHC 33.4 RDW Std Deviation 43.8 RDW Coeff of Alex 13.0 Plt Count 144 L MPV 10.2 Immature Gran % (Auto) 0.400 Neut % (Auto) 79.6 H Lymph % (Auto) 13.4 L Stanly % (Auto) 4.8 Eos % (Auto) 1.4 Baso % (Auto) 0.4 Absolute Neuts (auto) 8.8 H Absolute Lymphs (auto) 1.48 Nucleated RBC % 0 Sodium 137 Potassium 4.0 Chloride 103 Carbon Dioxide 24.3 Anion Gap 10 BUN 23 H Creatinine 0.92 Est GFR (MDRD) Non-Af 61 BUN/Creatinine Ratio 24.8 H Glucose 143 H Calcium 9.2 Radiography Diagnostic Testing: Clinical Impression(s) from Imaging Studies Pelvis X-Ray 05/07/25 07:21 IMPRESSION: A spiral FRACTURE of the distal left femoral shaft is seen, with some override also present. No intra-articular extension is clearly evident. 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 In visualized areas, no evidence of prosthesis loosening or metallic fracture is seen. Vascular stent is seen overlying the right femoral neck. Mild sacroiliac joint degenerative changes are noted. Prominent degenerative changes of the visualized lower lumbar spine are seen. [id number] degenerative changes of the visualized portions of the left knee. Reading Location: [address] Femur X-Ray 05/07/25 07:24 IMPRESSION: A spiral FRACTURE of the distal left femoral shaft is seen, with some override also present. No intra-articular extension is clearly evident. 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 In visualized areas, no evidence of prosthesis loosening or metallic fracture is seen. Vascular stent is seen overlying the right femoral neck. Mild sacroiliac joint degenerative changes are noted. Prominent degenerative changes of the visualized lower lumbar spine are seen. [id number] degenerative changes of the visualized portions of the left knee. Reading Location: [address] Discharge Plan Disposition Disposition: Acute Care Hospital [facility] Discharge Date/Time: 05/07/25 15:10 What to do if you have Problems For any increased pain, shortness of breath, bleeding, nausea or vomiting, chestpain, or any unexpected problems, contact your Primary Care Provider. Call [facility] ([phone]) or report to the closest Emergency Room. Call 911 if necessary. 05/07/25 1601 <Electronically signed by José Manuel Guzman DO> Cosigner Signature (if applicable): CC: Dr. Eh Huddleston MD ~ Signed [facility] Work Phone: [phone] Consult note [facility] Medical Records Department [address] [place] [address] Consultation - Orthopedics 05/07/25 1658 MR#: [id number] Acct: [id number] Name: GOGO WARE Re p #:[id number] : 1940 85 From: Santhosh randolph DO PCP: Dr. Eh Huddleston MD Status:ADM I N Location: [place] [address] HPI Consult Data Date of Consult: 05/07/25 HPI Narrative Reason for Consultation: Left femur fracture HPI Narrative: GOGO WARE, is a 85 F who presented to [facility] this morning after mechanical fall from standing height at home. She states she fellon both knees and twisted her left leg. Shenoted immediate pain and inability bear weight. She was brought to emergency department x-rays revealed a left femur fracture. 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 She is currently on Eliquis and has a follow-up in May and believes she is likely to stop the Eliquis at that time.Her last dose of Eliquis was last evening. She was admitted to the service to hospitalist. I saw the patient in consultation. She denies any other aches or pains. Denies head injury or loss consciousness. Community ambulator without assistive device. She lives alone at home. Denies any problems with anesthesia in the past. Prior left total hip arthroplasty by Dr. Gonzalo Palmer remotely. Denies fevers, chills, nausea vomiting, chest pain or shortness of breath. 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 Essential hypertension Seborrheic keratosis Generalized weakness Fall Home Medications ?Medication ?Instructions ?Recorded ?Last Taken ?Type brimonidine 0.2 % eye drops 2 drp EACH EYE BID glaucom a 11/25/17 11/25/17 History dorzolamide 22.3 mg-timolol 6.8 1 drp EACH EYE BID gla ucoma 11/25/17 11/25/17 History mg/mL eye drops latanoprost 0.005 % eye drops 1 drp ophthalmic (eye) Q PM 12/17/19 Unknown History carvedilol 12.5 mg tablet 12.5 mg PO BID #180 tabs 05/21 Unknown Rx apixaban 5 mg tablet (Eliquis) 5 mg PO BID 05/07/25 Un known History clopidogrel 75 mg tablet 75 mg PO DAILY 05/07/25 Unkn own History temazepam 30 mg capsule 30 mg PO DAILY 05/07/25 Unkn own History valsartan 160 mg tablet 80 mg PO DAILY 05/07/25 Unkn own History Allergy/AdvReac Type Severity Reaction Status Date / Time No Known Allergies Allergy Verified 03/16/24 14:09 Family History Father Diabetes Grandmother Colon cancer Surgical History History of left heart catheterization (LHC) (~12/27/17) History of bilateral hip replacements Social History Smoking Status: Never smoker alcohol intake: current alcohol intake frequency: holidays/special occasions only Alcohol type: wine substance use type: does not use caffeine: Yes Type: coffee what type of physical activity do you participate in: none seatbelt use: always do you feel safe at home: Yes ROS ROS Narrative 12 point review of systems obtained, negative unless otherwise known HPI. Vital Signs Vital Signs Vital Signs: 05/07/25 07:09 05/07/25 07:16 05/07/25 08:08 Temperature 99.1 F Temperature Source Oral Pulse Rate 59 L 68 Respiratory Rate 18 19 H Respiratory Effort Normal Respiratory Depth Normal Respiratory Pattern Normal Blood Pressure 202/87 H 137/91 H Blood Pressure Mean 125 106 Pulse Ox 100 100 Oxygen Delivery Method Room Air Room Air Room Air 05/07/25 09:08 05/07/25 10:00 05/07/25 11:00 Temperature Temperature Source Pulse Rate 72 72 80 Respiratory Rate 17 Respiratory Effort Respiratory Depth Respiratory Pattern Blood Pressure 130/51 H 149/50 H 120/70 Blood Pressure Mean 77 83 86 Pulse Ox 99 98 Oxygen Delivery Method Room Air 05/07/25 12:00 05/07/25 13:00 05/07/25 14:13 Temperature 97.6 F L Temperature Source Pulse Rate 72 75 75 Respiratory Rate 18 12 Respiratory Effort Respiratory Depth Respiratory Pattern Blood Pressure 128/70 H 136/52 H 109/56 L Blood Pressure Mean 89 80 73 Pulse Ox 95 99 97 Oxygen Delivery Method Room Air Weight Weight: 166 lb Body Mass Index (BMI) 27.1 Physical Exam Narrative General -A&Ox3, NAD, appears stated age. Vital signs stable, afebrile. Respiratory -normal work of breathing, no intercostal retractions. CV -pulses regular, brisk capillary refill ?4 limbs. Abdomen-soft, nontender, nondistended. No guarding, rigidity, rebound tenderness. Musculoskeletal/neurologic -full range of motion nontender throughout bilateral upper extremities, lower extremity with full sensation and strength in all dermatomes and myotomes. No midline cervicaltenderness.Left lower extremity-knee immobilizer in place. Knee immobilizer was opened. She is appropriately tender in the mid femur. No rashes or lesions, lacerations or abrasions. Briskcapillary refill. Sensation intact light touch L3-S1 dermatomes. DF, PF, EHL intact. DP, PT 2+. Pelvis is stable, nontender. Skin is intact without lacerations, abrasions. No ecchymosis noted. Lab / Micro Data 05/07/25 07:35 05/07/25 07:35 Labs: Laboratory Results - last 24 hr 05/07/25 07:35: WBC 11.0, RBC 4.01 L, Hgb 12.3, Hct 36.8 L, MCV 91.8, MCH 30.7, MCHC 33.4, RDW Std Deviation 43.8, RDW Coeff of Alex 13.0, Plt Count 144 L, MPV 10.2, Immature Gran % (Auto) 0.400, Neut% (Auto) 79.6 H, Lymph % (Auto) 13.4 L,Stanly % (Auto) 4.8, Eos % (Auto) 1.4, Baso % (Auto) 0.4, Absolute Neuts (auto) 8.8 H, Absolute Lymphs (auto) 1.48, Nucleated RBC % 0, Sodium 137, Potassium 4.0, Chloride 103, Carbon Dioxide 24.3, Anion Gap 10, BUN 23 H, Creatinine 0.92,Est GFR (MDRD) Non-Af 61,BUN/Creatinine Ratio 24.8 H, Glucose 143 H, Calcium 9.2 Imaging Radiology Impression Pelvis X-Ray 05/07/25 07:21 IMPRESSION: A spiral FRACTURE of the distal left femoral shaft is seen, with some override also present. No intra-articular extension is clearly evident. 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 In visualized areas, no evidence of prosthesis loosening or metallic fracture is seen. Vascular stent is seen overlying the right femoral neck. Mild sacroiliac joint degenerative changes are noted. Prominent degenerative changes of the visualized lower lumbar spine are seen. [id number] degenerative changes of the visualized portions of the left knee. Reading Location: [id number] Femur X-Ray 05/07/25 07:24 IMPRESSION: A spiral FRACTURE of the distal left femoral shaft is seen, with some override also present. No intra-articular extension is clearly evident. 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 In visualized areas, no evidence of prosthesis loosening or metallic fracture is seen. Vascular stent is seen overlying the right femoral neck. Mild sacroiliac joint degenerative changes are noted. Prominent degenerative changes of the visualized lower lumbar spine are seen. [id number] degenerative changes of the visualized portions of the left knee. Reading Location: [address] Assessment & Plan Assessment/Plan (1) Femoral distal fracture: QUALIFIERS: Encounter type: initial encounter Fracture type: closed Laterality: left PLAN: Patient sustained a spiral left distal femoral shaft fracture. Isolated injury, closed injury. Recommend surgical invention in the form of left femur open reduction internal fixation. We discussed the procedure in detail. We discussed the need for weight limited weightbearing postoperatively. We discussed the risks, benefits, alternatives to the procedure. Risks include but are not limited to bleeding, infection, loss of life or limb, need for additional surgery, persistent pain, nonhealing bone or wounds, stiffness, neurovascular injury, DVT or PE, risk of anesthesia. Informed consent was obtained. Recommend delayed surgery until 05/09/2025 due to Eliquis therapy. Hold anticoagulant. Okay for heparin drip if deemed necessary due to recent DVT, defer to hospitalist. N.p.o. after midnight tomorrow night. Maintenance IV fluids. Ancef on-call to the OR. 05/07/25 1704 Cosigner Signature (if applicable): CC: Dr. Eh Huddleston MD~ Signed [facility]07-11-2025 History and physical note [facility] Medical Records Department [address] [place] [address] H&P Exam - Hospitalist 05/07/25 1634 MR#: [id number] Acct: [id number] Name: GOGO WARE Heidi p #:[id number] : 1940 85 From: Sourav Casiano DO PCP: Dr. Eh Huddleston MD Status:ADM I N Location: [facility] [id number] HPI - General General Date of Admission: 05/07/25 Date of Service: 05/07/25 Chief Complaint: Left leg injury, inability to ambulate HPI Narrative GOGO WARE, is a 85 F who presents to the emergency room at [facility] after sustaining a mechanical fall at home, she landed on herknees and then had severe left upper leg painand was unable to bear weight on the left leg. Patient's past medical history includes a TAVR insertion in October 2024, she also has approximately 70% stenosis of one of her coronary arteries which has not changed in several years, she takes clopidogrel chronically. Patient also takes Eliquis due to a VTE in the leg in the past. She did not take her Eliquis today. X-rays obtained in the emergency room showed a spiral fracture of the left leg, initially the patient wanted to be transferred to [facility] if possible due to the fact her dermatology physician assistant was from the main [place] but there was not a bed available and she ultimately decided to stay here and haveit repaired here. Patient CBC is unremarkable, chemistry profile was unremarkable also. Patient will be admitted to [place] [address], she will be seen by orthopedic surgery most likely undergo ORIF of the left distal femur fracture. 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 Essential hypertension Seborrheic keratosis Generalized weakness Fall Home Medications ?Medication ?Instructions ?Recorded ?Last Taken ?Type brimonidine 0.2 % eye drops 2 drp EACH EYE BID glaucom a 11/25/17 11/25/17 History dorzolamide 22.3 mg-timolol 6.8 1 drp EACH EYE BID gla ucoma 11/25/17 11/25/17 History mg/mL eye drops latanoprost 0.005 % eye drops 1 drp ophthalmic (eye) Q PM 12/17/19 Unknown History carvedilol 12.5 mg tablet 12.5 mg PO BID #180 tabs 05/21 Unknown Rx apixaban 5 mg tablet (Eliquis) 5 mg PO BID 05/07/25 Un known History clopidogrel 75 mg tablet 75 mg PO DAILY 05/07/25 Unkn own History temazepam 30 mg capsule 30 mg PO DAILY 05/07/25 Unkn own History valsartan 160 mg tablet 80 mg PO DAILY 05/07/25 Unkn own History Allergy/AdvReac Type Severity Reaction Status Date / Time No Known Allergies Allergy Verified 03/16/24 14:09 Family History Father Diabetes Grandmother Colon cancer Surgical History History of left heart catheterization (LHC) (~12/27/17) History of bilateral hip replacements Social History Smoking Status: Never smoker alcohol intake: current alcohol intake frequency: holidays/special occasions only Alcohol type: wine substance use type: does not use caffeine: Yes Type: coffee what type of physical activity do you participate in: none seatbelt use: always do you feel safe at home: Yes ROS Constitutional Constitutional: Denies anorexia, change in weight, fever(s), night sweats or weakness Eyes Eyes: Denies blurry vision, change in vision, discharge from eye(s) or eye pain Cardiovascular Cardiovascular: Denies chest pain, claudication, edema or palpitations Respiratory/Chest Respiratory/Chest: Denies cough, hemoptysis, shortness of breath at rest or shortness of breath with exertion Gastrointestinal Gastrointestinal: Denies abdominal pain, constipation, diarrhea, hematemesis, hematochezia, melena,nausea or vomiting Genitourinary Genitourinary: Denies dysuria, hematuria, urinary frequency, urinary hesitancy, urinary incontinence or urinary urgency Musculoskeletal Musculoskeletal: Reports other Details: Severe left upper leg pain with inability to bear weight after a fall today at her home ; Denies back pain, joint pain, joint stiffness, joint swelling, myalgias or neck pain Neurologic Neurologic: Denies abnormal gait, abnormal speech, dizziness, focal weakness, headache(s), loss of vision, numbness, other visual disturbances, paresthesias, syncope or tingling Psychiatric Psychiatric: Denies anxiety, cognitive impairment, depression, irritability, mood swings or suicidal ideation Endocrine Endocrinology: Denies change in body appearance, cold intolerance, excessive sweating, heat intolerance, polydipsia or polyuria Hematologic/Lymphatic Hematologic/Lymphatic: Denies none, anemia, easy bleeding, easy bruising or lymphadenopathy Allergic/Immunologic Allergic/Immunologic: Denies rhinitis, urticaria, eczemia or asthma Vital Signs Vital Signs Vital Signs: 05/07/25 07:09 05/07/25 07:16 05/07/25 08:08 Temperature 99.1 F Temperature Source Oral Pulse Rate 59 L 68 Respiratory Rate 18 19 H Respiratory Effort Normal Respiratory Depth Normal Respiratory Pattern Normal Blood Pressure 202/87 H 137/91 H Blood Pressure Mean 125 106 Pulse Ox 100 100 Oxygen Delivery Method Room Air Room Air Room Air 05/07/25 09:08 05/07/25 10:00 05/07/25 11:00 Temperature Temperature Source Pulse Rate 72 72 80 Respiratory Rate 17 Respiratory Effort Respiratory Depth Respiratory Pattern Blood Pressure 130/51 H 149/50 H 120/70 Blood Pressure Mean 77 83 86 Pulse Ox 99 98 Oxygen Delivery Method Room Air 05/07/25 12:00 05/07/25 13:00 05/07/25 14:13 Temperature 97.6 F L Temperature Source Pulse Rate 72 75 75 Respiratory Rate 18 12 Respiratory Effort Respiratory Depth Respiratory Pattern Blood Pressure 128/70 H 136/52 H 109/56 L Blood Pressure Mean 89 80 73 Pulse Ox 95 99 97 Oxygen Delivery Method Room Air Weight Weight: 75.296 kg Body Mass Index (BMI) 27.1 Physical Exam Const alert, oriented x3, no apparent distress and healthy appearing Constitutional Narrative: Patient appears much younger than her stated age General Appearance: cooperative, well kempt and well developed Orientation / Consciousness: awake, oriented to person, oriented to place and oriented to time HEENT normocephalic, head/scalp atraumatic, hearing grossly normal bilaterally and moist oral mucous membranes Eyes PERRL, EOMs intact bilaterally and conjunctivae normal Neck supple, no JVD, thyroid normal and no carotid bruits General: trachea midline Resp normal respiratory effort, no retractions, no use of accessory muscles and clearto auscultation bilaterally Auscultation: Negative for rales, rhonchi or wheezes Cardio regular rate, regular rhythm, S1 normal heart sound, S2 normal heart sound, no murmurs, no rub and no gallops GI normal to inspection, nondistended, normoactive bowel sounds, soft to palpation,non-tender and non-distended Skin no rashes or lesions noted General Skin Exam: no breakdown Neuro oriented x3, CN's II-XII intact bilaterally, no focal motor deficits and no sensory deficits noted Sensorium / Orientation: awake and alert Speech: speech normal Psych affect normal Results Lab / Micro Data 05/07/25 07:35 05/07/25 07:35 Labs: Laboratory Results - last 24 hr 05/07/25 07:35: WBC 11.0, RBC 4.01 L, Hgb 12.3, Hct 36.8 L, MCV 91.8, MCH 30.7, MCHC 33.4, RDW Std Deviation 43.8, RDW Coeff of Alex 13.0, Plt Count 144 L, MPV 10.2, Immature Gran % (Auto) 0.400, Neut% (Auto) 79.6 H, Lymph % (Auto) 13.4 L,Stanly % (Auto) 4.8, Eos % (Auto) 1.4, Baso % (Auto) 0.4, Absolute Neuts (auto) 8.8 H, Absolute Lymphs (auto) 1.48, Nucleated RBC % 0, Sodium 137, Potassium 4.0, Chloride 103, Carbon Dioxide 24.3, Anion Gap 10, BUN 23 H, Creatinine 0.92,Est GFR (MDRD) Non-Af 61,BUN/Creatinine Ratio 24.8 H, Glucose 143 H, Calcium 9.2 Imaging Radiology Impression Pelvis X-Ray 05/07/25 07:21 IMPRESSION: A spiral FRACTURE of the distal left femoral shaft is seen, with some override also present. No intra-articular extension is clearly evident. 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 In visualized areas, no evidence of prosthesis loosening or metallic fracture is seen. Vascular stent is seen overlying the right femoral neck. Mild sacroiliac joint degenerative changes are noted. Prominent degenerative changes of the visualized lower lumbar spine are seen. [id number] degenerative changes of the visualized portions of the left knee. Reading Location: [address] Femur X-Ray 05/07/25 07:24 IMPRESSION: A spiral FRACTURE of the distal left femoral shaft is seen, with some override also present. No intra-articular extension is clearly evident. 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 In visualized areas, no evidence of prosthesis loosening or metallic fracture is seen. Vascular stent is seen overlying the right femoral neck. Mild sacroiliac joint degenerative changes are noted. Prominent degenerative changes of the visualized lower lumbar spine are seen. Zdlu-bx-hjknmctj degenerative changes of the visualized portions of the left knee. Reading Location: [address] Assessment & Plan Assessment/Plan (1) Femoral distal fracture: PLAN: Plan 1. Left distal femur fracture secondary to osteoporosis-patient was admitted toMedSurg 3 and she will be seen by orthopedic surgery, most likely she will undergo an ORIF of the left femur fracture tomorrow #2 history of valvular heart disease with recent TAVR-patient appears medically stable #3 coronary artery disease-patient appears medically stable at this time, I willhold her Plavix fornow #4 essential hypertension-patient will remain on her current medications #5 chronic use of anticoagulant-patient's Eliquis will be held for now because of her upcoming surgery tomorrow #6 glaucoma-patient will remain on her eyedrops Total clinical time spent by myself addressing the patient's medical issues, reviewing all of her data, and collaborating with patient's care team: 55-minute Charges/Coding Visit Charges Inpatient E&M: 56926 Init Hosp L2 05/07/25 1641 Cosigner Signature (if applicable): CC: Dr. Sourav Casiano DO; Dr. Eh Huddleston MD~ Signed [facility]07-11-2025 Discharge summary [facility] Medical Records Department [address] [place] [address] Emergency Department Summary 05/07/25 MR#: [id number] Acct: [id number] Name: GOGO WARE p #:[id number] : 1940 85 From: José Manuel marie DO PCP: Dr. Eh Huddleston MD Status:ADM I N Location: NV3 [id number] HPI HPI - Fall History of Present Illness Chief Complaint: Fall Narrative Narrative: Chief complaint and HPI: Left thigh pain. 85-year-old female with past medical history of HTN, HLD,CAD, aortic valve replacement, history of DVT which patientstates she is on Eliquis presents for evaluation of left thigh pain. Patient states this morning she was on her way back from the restroom when she tripped, twisted her left upper leg, and fell on her bilateral knees. States she was unable to ambulate secondary to the left thigh pain. Pain is minimal at rest, increases with movement. She denies any fever, chills, shortness of breath, chest pain abdominal pain, nausea, vomiting, numbness/tingling. Denies hitting her head or neck. No LOC. Review of systems: See HPI Medications: As listed on the chart Allergies: As listed on the chart PFSH: Per chart Vital signs: As listed on the chart. Reviewed. Physical exam: Gen: A&O x3, NAD Head: Normocephalic, atraumatic Eyes: No sclera icterus, conjunctiva clear, PERRL, EOMI ENT: TMs clear BL, moist mucous membranes, atraumatic without tenderness Neck: Trachea midline, No JVD, Nontender, full range of motion CV: RRR, no murmurs, no chest wall TTP Resp: Lungs CTA BL, no w/r/c GI: Abd soft, non-distended, non-tender, no r/r/g Musc: Full ROM of all extremities except the left lower extremity secondary to thigh pain and swelling-left lower extremity is externally rotated and shortened, femoral/DP/PT pulses +2 bilaterally, compartments soft, capillary refill, no spinal TTP, no darion step-offs Skin: Warm, dry, intact Neuro: Alert, oriented, grossly intact, sensation intact, GCS 15 Psych: Cooperative, appropriate mood and affect [facility] Medical History Laceration of leg Closed head injury Abrasions of multiple sites Laceration of lip Pure hypercholesterolemia Nonrheumatic aortic (valve) stenosis Non-ST elevation (NSTEMI) myocardial infarction 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 Essential hypertension Seborrheic keratosis Generalized weakness Fall Home Medications ?Medication ?Instructions ?Recorded ?Last Taken ?Type brimonidine 0.2 % eye drops 2 drp EACH EYE BID glaucom a 11/25/17 11/25/17 History dorzolamide 22.3 mg-timolol 6.8 1 drp EACH EYE BID gla ucoma 11/25/17 11/25/17 History mg/mL eye drops latanoprost 0.005 % eye drops 1 drp ophthalmic (eye) Q PM 12/17/19 Unknown History carvedilol 12.5 mg tablet 12.5 mg PO BID #180 tabs 05/21 Unknown Rx apixaban 5 mg tablet (Eliquis) 5 mg PO BID 05/07/25 Un known History clopidogrel 75 mg tablet 75 mg PO DAILY 05/07/25 Unkn own History temazepam 30 mg capsule 30 mg PO DAILY 05/07/25 Unkn own History valsartan 160 mg tablet 80 mg PO DAILY 05/07/25 Unkn own History Allergy/AdvReac Type Severity Reaction Status Date / Time No Known Allergies Allergy Verified 03/16/24 14:09 Family History Father Diabetes Grandmother Colon cancer Surgical History History of left heart catheterization (LHC) (~12/27/17) History of bilateral hip replacements Social History Smoking Status: Never smoker alcohol intake: current alcohol intake frequency: holidays/special occasions only Alcohol type: wine substance use type: does not use caffeine: Yes Type: coffee what type of physical activity do you participate in: none seatbelt use: always do you feel safe at home: Yes EXAM Physical Exam Const Vital Signs: 05/07/25 07:09 05/07/25 07:16 05/07/25 08:08 Temperature 99.1 F Temperature Source Oral Pulse Rate 59 L 68 Respiratory Rate 18 19 H Respiratory Effort Normal Respiratory Depth Normal Respiratory Pattern Normal Blood Pressure 202/87 H 137/91 H Blood Pressure Mean 125 106 Pulse Ox 100 100 Oxygen Delivery Method Room Air Room Air Room Air 05/07/25 09:08 05/07/25 10:00 05/07/25 11:00 Temperature Temperature Source Pulse Rate 72 72 80 Respiratory Rate 17 Respiratory Effort Respiratory Depth Respiratory Pattern Blood Pressure 130/51 H 149/50 H 120/70 Blood Pressure Mean 77 83 86 Pulse Ox 99 98 Oxygen Delivery Method Room Air 05/07/25 12:00 05/07/25 13:00 Temperature Temperature Source Pulse Rate 72 75 Respiratory Rate 18 Respiratory Effort Respiratory Depth Respiratory Pattern Blood Pressure 128/70 H 136/52 H Blood Pressure Mean 89 80 Pulse Ox 95 99 Oxygen Delivery Method Room Air MDM MDM MDM Narrative Medical decision making narrative: 85-year-old female with past medical history of HTN, HLD, CAD, aortic valve replacement, history ofDVT which patient states she is on Eliquis presents forevaluation of left thigh pain. Patient had amechanical fall today in which shelanded on her bilateral knees. Only endorsing left thigh pain. On presentationit is swollen and tender in the left thigh. Her left lower extremity is externally rotated and shortened. Pulses intact. She is in no acute distress but hypertensive. Patient states she did not take her blood pressure medicationtoday. Currently rating her pain a 3 out of 10. I offered pain medicine but she declined. Suspect femur fracture. Given that patient likely has a fractureand require surgery basic labs ordered with x-ray of the femur and pelvis. Patient does have a history ofa right hip replacement that was done in 1999 at [facility]. Her left hip replacement was done at [place] by Dr. Nunez in 2026. She no longer follows an orthopedic surgeon. Patient is on Eliquis however she denies any her head. No LOC. Therefore CT head and neckwill not be ordered. X-ray of the pelvis and femur were personally reviewed andinterpreted by me, ED physician. Patient has adistal left femoral spiral fracture that is partially overriding. Radiology in a [place] agreement. She hasbilateral hip prosthesis without injury to her prosthesis. CBC without leukocytosis or anemia.Patient has thrombocytopenia of 144. BMP relatively unremarkable. Patient will warrant surgery for her femur fracture. I did speakwith Dr. Livingston, plan will be for surgery on Saturday or Saturday given E liquis. Patient states she took her last dose of Eliquis yesterday evening. Did not take it this morning. Admit to the hospitalist service. I paged out to the hospitalist service however patient wants to be transferred to [facility] as her dermatology physician assistant is there. I did speak with Dr. Casiano about the patient. He accepted admission however we will wait for possible transfer. was updated as well. Will reach out to [facility] orthopedicteam. I was informed by our dental office receptionist that if patient transfers [facility] she will likely have to pay for theambulance [id number] given that it is a patient request. I did inform the patient of this, she would like us to look into how much this may cost. I did provide this information to the patient, shestates that if her insurance does not cover it she is willing to accept the payment. Transfer line stated that orthopedic physician was in the OR and that he will contact us back on the transfer. Patient had a prolonged stay here in the emergency department as we are waiting for the orthopedic physi evan from [facility]. I did receive a call back from the transfer line. I actually spoke withthe hospitalist service Dr. Carson who accepted transfer as the orthopedic physician consented. However transfer line states nobeds are available at this time. States it may be multiple days beforeshe receives a bed. I did inform the patient of this information. I asked her if she would like me to try another [facility] facility such as [facility]. She is okay with being admitted here at [facility] for the surgery. Our hospitalist service as well as Dr. Livingston was informed of the patient's decision and she will be admitted. Impression: 1. Left distal femur fracture 2. Mechanical fall Lab Data Labs: Laboratory Results - last 24 hr 05/07/25 07:35 WBC 11.0 RBC 4.01 L Hgb 12.3 Hct 36.8 L MCV 91.8 MCH 30.7 MCHC 33.4 RDW Std Deviation 43.8 RDW Coeff of Alex 13.0 Plt Count 144 L MPV 10.2 Immature Gran % (Auto) 0.400 Neut % (Auto) 79.6 H Lymph % (Auto) 13.4 L Stanly % (Auto) 4.8 Eos % (Auto) 1.4 Baso % (Auto) 0.4 Absolute Neuts (auto) 8.8 H Absolute Lymphs (auto) 1.48 Nucleated RBC % 0 Sodium 137 Potassium 4.0 Chloride 103 Carbon Dioxide 24.3 Anion Gap 10 BUN 23 H Creatinine 0.92 Est GFR (MDRD) Non-Af 61 BUN/Creatinine Ratio 24.8 H Glucose 143 H Calcium 9.2 Radiography Diagnostic Testing: Clinical Impression(s) from Imaging Studies Pelvis X-Ray 05/07/25 07:21 IMPRESSION: A spiral FRACTURE of the distal left femoral shaft is seen, with some override also present. No intra-articular extension is clearly evident. 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 In visualized areas, no evidence of prosthesis loosening or metallic fracture is seen. Vascular stent is seen overlying the right femoral neck. Mild sacroiliac joint degenerative changes are noted. Prominent degenerative changes of the visualized lower lumbar spine are seen. Rbrd-jg-beydczgh degenerative changes of the visualized portions of the left knee. Reading Location: [address] Femur X-Ray 05/07/25 07:24 IMPRESSION: A spiral FRACTURE of the distal left femoral shaft is seen, with some override also present. No intra-articular extension is clearly evident. 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 In visualized areas, no evidence of prosthesis loosening or metallic fracture is seen. Vascular stent is seen overlying the right femoral neck. Mild sacroiliac joint degenerative changes are noted. Prominent degenerative changes of the visualized lower lumbar spine are seen. Hmow-xg-scueajrq degenerative changes of the visualized portions of the left knee. Reading Location: [address] Discharge Plan Disposition Disposition: Acute Care Hospital [facility] Discharge Date/Time: 05/07/25 15:10 What to do if you have Problems For any increased pain, shortness of breath, bleeding, nausea or vomiting, chestpain, or any unexpected problems, contact your Primary Care Provider. Call [facility] ([phone]) or report tothe closest Emergency Room. Call 911 if necessary. 05/07/25 1601 Cosigner Signature (if applicable): CC: Dr. Eh Huddleston MD ~ Signed [facility]07-11-2025 Evaluation note* Diagnosis Onset Date Resolution Status Admit Date Femoral distal fracture acute J raji2024 1:32pm [facility] Work Phone: 1(860) 541-724707-11-2025 Evaluation note* Diagnosis Onset Date Resolution Status Admit Date Femoral distal fracture inactive J 2024 1:32pm Coronary artery disease acute 2024 2:44pm Debility acute May 14 2:44pm DVT (deep venous thrombosis) acute May 14, 2025 2:44pm Essential (primary) hypertension acu te May 14, 2025 2:44pm Glaucoma acute May 14 2:44pm Hyperlipidemia acute May 14, 2025 2:44pm Insomnia acute May 14 2:44pm Stroke acute May 14 2:44pm Femoral distal fracture inactive [facility] 2024 2:44pm [facility] Work Phone: 1(593) 175-596007-11-2025 Evaluation note* Diagnosis Onset Date Resolution Status Admit Date Femoral distal fracture inactive [facility]2024 1:32pm Coronary artery disease acute [facility]2024 2:44pm Debility acute May 14 2:44pm DVT (deep venous thrombosis) acute May 14, 2025 2:44pm Essential (primary) hypertension acu te May 14, 2025 2:44pm Glaucoma acute May 14 2:44pm Hyperlipidemia acute May 14, 2025 2:44pm Insomnia acute May 14 2:44pm Stroke acute May 14 2:44pm Urinary retention acute May 142024 2:44pm Urinary tract infection acute [facility] 2024 2:44pm Femoral distal fracture inactive [facility] 2024 2:44pm [facility] Work Phone: 1(221) 628-688607-11-2025 Radiology Diagnostic study note [facility] Imaging Services [address] [place], [place] [id number] Femur Min 2 Views MR#: [id number] Acct: [id number] Name: GOGO WARE Rep #: [id number] : 1940 F 85 From: Matt Bryant MD PCP: Dr. Eh Huddleston MD Status: PRE E R Study:Femur Min 2 Views Date of Exam: Exam# [id number] Ordering Dr: José Manuel Jean DO PROCEDURE: FEMUR MIN 2 VIEWS; PELVIS 1 OR 2 VIEWS 05/07/2025 REASON FOR EXAM: PAIN TECHNIQUE: Five view left femur and AP pelvis (combined dictation). COMPARISON: None. RAD/Femur Min 2 Views IMPRESSION: A spiral FRACTURE of the distal left femoral shaft is seen, with some override also present. No intra-articular extension is clearly evident. 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 In visualized areas, no evidence of prosthesis loosening or metallic fracture is seen. Vascular stent is seen overlying the right femoral neck. Mild sacroiliac joint degenerative changes are noted. Prominent degenerative changes of the visualized lower lumbar spine are seen. Praz-wa-ockxpeza degenerative changes of the visualized portions of the left knee. Reading Location: [address] CC: Dr. José Manuel Guzman DO; Dr. Eh Huddleston MD ~ General Studies Program Chair: Signed [facility]07-11-2025 Radiology Diagnostic study note [facility] Imaging Services [address] [place] [id number] Pelvis 1 or 2 Views MR#: [id number] Acct: [id number] Name: GOGO WARE Rep #: [id number] : 1940 F 85 From: Matt Bryant MD PCP: Dr. Eh Huddleston MD Status: PRE E R Study:Pelvis 1 or 2 Views Date of Exam: 05/07/25 Exam# [id number] Ordering Dr: José Manuel Jean DO PROCEDURE: FEMUR MIN 2 VIEWS; PELVIS 1 OR 2 VIEWS 05/07/2025 REASON FOR EXAM: PAIN TECHNIQUE: Five view left femur and AP pelvis (combined dictation). COMPARISON: None. RAD/Pelvis 1 or 2 Views IMPRESSION: A spiral FRACTURE of the distal left femoral shaft is seen, with some override also present. No intra-articular extension is clearly evident. 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 In visualized areas, no evidence of prosthesis loosening or metallic fracture is seen. Vascular stent is seen overlying the right femoral neck. Mild sacroiliac joint degenerative changes are noted. Prominent degenerative changes of the visualized lower lumbar spine are seen. Tcwo-ga-wtdyovtr degenerative changes of the visualized portions of the left knee. Reading Location: [id number] CC: Dr. José Manuel Guzman DO; Dr. Eh Huddleston MD ~ General Studies Program Chair: Serafin [facility]05-30-2025 Telephone encounter Note* Telephone Encounter - Raven Zazueta - 03/26/2025 10:51 AM EDT Call from pharmacy requesting refill. Requested Prescriptions Pending Prescriptions Disp Refills apixaban (ELIQUIS) 5 mg tab(s) 60 tablet 2 Sig: Take 1 tablet by mouth two times a day. Patient last seen 08/31/24 Raven Zazueta [facility]05-30-2025 Miscellaneous Notes* Telephone Encounter - Raven Zazueta - 03/26/2025 10:51 AM EDT Call from pharmacy requesting refill. Requested Prescriptions Pending Prescriptions Disp Refills apixaban (ELIQUIS) 5 mg tab(s) 60 tablet 2 Sig: Take 1 tablet by mouth two times a day. Patient last seen 08/31/24 Raven Zazueta [facility] Telephone encounter Note * Telephone Encounter - Deng Smith APRN.CNP - 03/11/2025 12:21 PM EDT Completed request reportedly approved [facility] Work Phone: 1(870) 128-903005-15-2025 Miscellaneous Notes* Telephone Encounter - Deng Smith APRN.CNP - 03/11/2025 12:21 PM EDT Completed request reportedly approved * Telephone Encounter - Lori Santamaria - 03/11/2025 11:16 AM EDT Images from the original note were not included. Received faxed PA request from pharmacy for Eliquis BIN #[id number] PCN#[id number] ID: [id number] Group: [id number] documented in this encounterFair[facility]05-15-2025 Telephone encounter Note * Telephone Encounter - Lori Santamaria - 03/11/2025 11:16 AM EDT Images from the original note were not included. Received faxed PA request from pharmacy for Eliquis BIN #[id number] PCN#[id number] ID: [id number] Group: [id number] [facility]05-09-2025 Telephone encounter Note* Telephone Encounter - Lucy Mccall APRN.CNP - 03/05/2025 2:36 PM EDT Spoke with patient's friend, Marni. 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 She is going to assist her in applying for a copay card. If she doesn't qualify, we discussed the possibility of switching to Coumadin. They will reach out to the office if a switch is needed. Lucy Mccall APRN.CNP [facility] Work Phone: [phone]) 452-540405-09-2025 Miscellaneous Notes* Telephone Encounter - Lucy Mccall APRN.CNP - 03/05/2025 2:36 PM EDT Spoke with patient's friend, Marni. 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 She is going to assist her in applying for a copay card. If she doesn't qualify, we discussed the possibility of switching to Coumadin. They will reach out to the office if a switch is needed. Lucy Mccall APRN.CNP documented in this encounterFairfield [facility] Center05-08-2025 Telephone encounter Note * Telephone Encounter - Lucy Mccall APRN.CNP - 03/04/2025 3:46 PM EDT Spoke with patient regarding CT results. 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 Wells would like patient to remain on Eliquis x 1 year and reassess echo at that time. Request placed for TTE and follow up in 1 year. Lucy Mccall APRN.CNP [facility]05-08-2025 Miscellaneous Notes* Telephone Encounter - Lucy Mccall APRN.CNP - 03/04/2025 3:46 PM EDT Spoke with patient regarding CT results. 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 Wells would like patient to remain on Eliquis x 1 year and reassess echo at that time. Request placed for TTE and follow up in 1 year. Lucy Mccall APRN.CNP documented in this encounterFairfield Medical Center05-06-2025 Instructions* Patient Instructions* Lucy Mccall APRN.CNP - 03/02/2025 1:17 PM EDT Follow up/Disposition: Discontinue Aspirin Start Eliquis 5 mg twice daily and continue Clopidogrel (Plavix) 75 mg daily until your next appointment With Cardiology in 3 months with PVR/VARSHA and leg US Check blood pressure daily and record the results. Please bring the results to your next appointment for review. Contact the office if you have blood pressure readings consistently greater than 140/85. Check your weight daily and record the results. Bring the results to your next appointment. If you have weight gain of greater than 3 lbs in 24 hours or worsening shortness of breath, abdominal distension or lower extremity swelling, please contact our office. If you have worsening chest pain, shortness of breath or syncope, please report to the Emergency room or call 911. Lucy Mccall APRN.CNP documented in this encounterFairfield Medical Center05-06-2025 History of Present illness Narrative* Lucy Mccall APRN.CNP - 03/02/2025 1:00 PM EDT Images from the original note were not included. [facility] Department of Cardiovascular Medicine SECTION OF INTERVENTIONAL CARDIOLOGY OUTPATIENT VISIT DATE March 01, 2025 OUTPATIENT VISIT TYPE ESTABLISHED FOLLOW UP [employer]: Dr. Wells Chief Complaint: Patient here for cardiac follow up evaluation History of Present Illness: Patient is a 84 year old female who presents for follow up visit today. Past medical history includes: Aortic stenosis -10/30/2024: s/p TF TAVR with a 23mm Newell Jerry S3 and Stenting of the R-NURSE RESEARCH with a 8.0 x 39 mm [place] VBX Balloon expandable stent by Dr. Wells Coronary artery disease -Cath in 2018 showing moderate RCA and LAD disease, RCA iFR 0.96 and LAD iFR was abnormal at 0.84 (patient opted not to proceed with PCI of mid LAD, hence being medically managed) Chronic diastolic heart failure Hypertension Hyperlipidemia Glaucoma (left eye completely blind) Patient being seen today for post TAVR follow up. On 10/30/2024, underwent 23mm Newell Jerry S3 andStenting of the R-NURSE RESEARCH with a 8.0 x 39 mm [place] VBX Balloon expandable stent by Dr. Wells. Post procedure echocardiogram completed demonstrating peak/mean gradients 19/11 mmHg, EFFIE 2.15 cm2, DVI 0.52. Discharge EKG SB with first degree HB (TYREL 230, QRS 96). Discharged with DAPT for minimum 6 months. Arterial doppler/PVR at 1, 3, 6, and 12 months post procedure. She last last seen in November by Deng Smith CNP. Echo gradients slightly higher than initial post procedure gradients. Peak/mean 37/21 mmHg from 19/[address] cardiac to rule out HALT. PVR/VARSHA completed today with no change. RLE US completed with new incidental finding of acute DVT in the right soleal vein from proximal to distal calf. Since discharge, patient has been doing really well. She has been working out about 3 times per week and has had no shortness of breath, chest pain, dizziness or lightheadedness. She denies any tenderness, swelling or redness of her RLE extremity. PAST CARDIAC HISTORY: See HPI PAST MEDICAL HISTORY Diagnosis Date Aortic valve stenosis CAD (coronary artery disease) Disease PROBLEM SLEEPING Essential hypertension Glaucoma HTN (hypertension) Mixed hyperlipidemia PAST SURGICAL HISTORY Procedure Laterality Date PROCEDURE 1999, 2006 BOTH HIPS REPLACED PROCEDURE 10/28/2009 LASER OU FOR GLAUCOMA REMV CATARACT EXTRACAP,INSERT LENS Left 04/20/2024 Social History Tobacco Use Smoking status: Never Smokeless tobacco: Never Vaping Use Vaping status: Never Used Substance Use Topics Alcohol use: Never Drug use: Never FAMILY HISTORY Problem Relation Age of Onset Glaucoma Father Diabetes Father Coronary Artery Disease Sister Colon Cancer Maternal Grandmother Stroke Maternal Grandfather Blindness Other GREAT AUNT Colon Cancer Other ALLERGIES No Known Allergies MEDICATIONS: Current Outpatient Medications Medication Sig clopidogrel (PLAVIX) 75 mg tablet Take 1 tablet by mouth once daily. atorvastatin (LIPITOR) 40 mg tablet Take 1 tablet by mouth daily at bedtime. brimonidine (ALPHAGAN) 0.2 % ophthalmic solution Use 2 Drops in the left eye two times a day. latanoprost (XALATAN) 0.005 % ophthalmic solution Use 1 Drop in the left eye daily at bedtime. xyyrmox-diiwrjuzk-foaabnbn,PF (TIA-FILE-RFA) 0.5-0.15-2 % ophthalmic solution Use 1 Drop in the left eye two times a day. valsartan (DIOVAN) 160 mg tablet Take 0.5 tablets by mouth once daily. carvedilol (COREG) 12.5 mg tablet Take 1 tablet by mouth twice daily with meals. aspirin, enteric coated (ASPIRIN, ENTERIC COATED) 81 mg EC tablet Take 81 mg by mouth once daily. temazepam (RESTORIL) 30 mg cap Take 30 mg by mouth at bedtime as needed. No current facility-administered medications for this visit. REVIEW OF SYSTEMS: PAIN ASSESSMENT: Denies complaints of acute or chronic pain GENERAL: Denies fevers, chills, night sweats, weight gain or loss HEENT: Denies changes in vision, hearing, nose bleeds, or bleeding gums NECK: Denies neck pain, stiffness, or swelling, or swollen lymph nodes RESPIRATORY: See HPI CARDIOVASCULAR: See HPI GI: Denies difficulty swallowing, nausea, vomiting, diarrhea, constipation, or melena : Denies frequency, urgency, or burning, and hematuria MUSCULOSKELETAL: Denies joint pain, swelling, or stiffness SKIN: Denies rashes, lesions, or tears PSYCH: Denies sleep disturbance, mood disorder, or recent psychosocial stressors HEMATOLOGY/LYMPHOLOGY: Denies prolonged bleeding or easy bruising ENDOCRINE: Denies heat or cold intolerance, polydipsia or polyphagia NEURO: Denies syncope, seizures, or numbness or tingling of hands or feet PHYSICAL EXAMINATION: There were no vitals taken for this visit. General: No acute distress Skin: warm, dry, and intact; no rashes or lesions noted Neck: No JVD Lungs: Breath sounds clear, respiratory effort normal Heart: Regular rhythm, no murmur, no edema noted Abdomen: Soft nontedner, +BSx4 Extremities: Distal pulses intact, MAEx4 Musculoskeletal: No deformities Neurologic/Psychiatric: Oriented to time, place & person and no gross focal neurologic deficits CARDIOVASCULAR MEDICINE TESTING: PVR 03/02/2025: RIGHT SIDE Resting right ankle brachial index: 1.27 Normal ankle brachial index at rest in the right leg. Right ankle: Normal at rest. LEFT SIDE Resting left ankle brachial index: 1.21 Normal ankle brachial index at rest in the left leg. Left ankle: Normal at rest. Leg US 03/02/2025: RIGHT SIDE External iliac artery distal: plaque noted without evidence of hemodynamically significant stenosis. Common femoral artery : plaque noted without evidence of hemodynamically significant stenosis . Stent noted from proximal to mid and appears patent. Profunda femoral artery proximal: plaque noted without evidence of hemodynamically significant stenosis . Superficial femoral artery and Popliteal artery : plaque noted without evidence of hemodynamically significant stenosis . Posterior tibial artery and Peroneal artery : plaque noted without evidence of hemodynamically significant stenosis . Vessels visualized in segments. Anterior tibial artery mid: 50-99% stenosis . Anterior tibial artery distal: 50-99% stenosis . Incidental finding of acute deep vein thrombosis in the right soleal vein from proximal to distal calf. CT Chest 03/02/2025: Pending PVR 12/23/2024: RIGHT SIDE Resting right ankle brachial index: 1.13 Normal ankle brachial index at rest in the right leg. Right ankle: Normal at rest. LEFT SIDE Resting left ankle brachial index: 1.02 Normal ankle brachial index at rest in the left leg. Left ankle: Normal at rest. Leg US 12/23/2024: RIGHT SIDE External iliac artery distal: plaque noted without evidence of hemodynamically significant stenosis. Common femoral artery proximal to mid: patent . Patent stent noted. Common femoral artery distal: plaque noted without evidence of hemodynamically significant stenosis . Profunda femoral artery proximal: plaque noted without evidence of hemodynamically significant stenosis . Superficial femoral artery proximal to distal: plaque noted without evidence of hemodynamically significant stenosis . Popliteal artery throughout: plaque noted without evidence of hemodynamically significant stenosis. Tibioperoneal trunk: plaque noted without evidence of hemodynamically significant stenosis . Posterior tibial artery throughout: plaque noted without evidence of hemodynamically significant stenosis . Visualized in segments at mid calf. Peroneal artery throughout: plaque noted without evidence of hemodynamically significant stenosis . Anterior tibial artery mid: 50-99% stenosis . Anterior tibial artery distal: 50-99% stenosis . Last ECHO Result Conclusion ECHO Collected: 12/23/2024 12:20 PM (Final result) Impression: CONCLUSIONS: - Technically difficult exam due to body habitus. - Exam indication: TAVR - The left ventricle is normal in size. Left ventricular systolic function is normal. EF = 65 5% (2D biplane) Indeterminate left ventricular diastolic function. - The right ventricle is normal in size. Right ventricular systolic function is normal. - The left atrial cavity is mildly dilated. - S/P transcatheter aortic valve replacement. Newell S3 Ultra prosthetic aortic valve (size #23). There is trace aortic valve regurgitation. The peak gradient is 37 mmHg, the mean gradient is 21 mmHg and the dimensionless valve index is 0.51. - Exam was compared with the prior CC echocardiographic exam performed on 10/30/2024. Prior Pk/mn gradient 19/11mmHg. * * * Final * * * I have personally reviewed the Electrocardiogram, Echocardiogram, Pulsed Volume Recording (PVR)/Ankle Brachial Index (VARSHA), and CT Chest Scan. IMPRESSION: CT chest completed today to rule out HALT- results pending PVRs/VARSHA unchanged, but new acute soleal DVT on right LE US- reviewed with Dr. Wells. Discontinue Aspirin and continue Plavix, start Eliquis x 3 months and repeat imaging at that time. If DVT resolved, plan for Aspirin alone. PLAN AND RECOMMENDATIONS: Aspirin: 81 mg daily DAPT: Plavix 75 mg daily AC: N/a Beta Madhu: Coreg 12.5 mg twice daily ACEI/ARB/ARNI: Valsartan 80 mg daily SGLT2 inhibitor: N/a Diuretic: N/a Aldosterone antagonist: N/a Statin: Lipitor 40 mg daily Additional Medications: Restoril 30 mg as needed Device therapy: N/a Aggressive risk factor modification as appropriate. -- BP Goal < 130/80 with nonpharmacologic and medical therapy -- LDL goal 50% reduction AND level < 55-70 mg/dL using max tolerated statin +/- adjuvant therapy -- HbA1C < 7% -- Healthy diet and exercise +/- weight loss if appropriate. - Smoking and alcohol abstinence/cessation, if applicable Follow up/Disposition: Discontinue Aspirin Start Eliquis 5 mg twice daily and continue Clopidogrel (Plavix) 75 mg daily until your next appointment With Cardiology in 3 months with PVR/VARSHA and leg US Check blood pressure daily and record the results. Please bring the results to your next appointment for review. Contact the office if you have blood pressure readings consistently greater than 140/85. Check your weight daily and record the results. Bring the results to your next appointment. If you have weight gain of greater than 3 lbs in 24 hours or worsening shortness of breath, abdominal distension or lower extremity swelling, please contact our office. If you have worsening chest pain, shortness of breath or syncope, please report to the Emergency room or call 911. Education/Counseling: We have discussed the following pharmacological measures during this visit: Reviewed all medications. Patient is able to get medications with out issues Reviewed any possible side effects of medications. Take ALL medications as prescribed. We discussed the following non-pharmacological measures during this visit: Diet: Eat a low-salt (sodium) diet Read food labels for sodium content. Mediterranean Diet Weight: Check for swelling in your feet, ankles, legs, and stomach. Weigh yourself each morning before breakfast. Compare If your weight goes up or down 4lbs from your dry weight, call your dermatology physician assistant Exercise: Be active and exercise every day. Smoking and alcohol abstinence/cessation, if applicable Heart Failure Education Booklet: information given previously. Please Visit [email or web address] Questions or Concerns after you go home? Please call Nurse foundation coordinator line at . I spent a total of 40 minutes on the date of the service which included preparing to see the patient, [id number] patient care, completing clinical documentation, obtaining and/or reviewing separately obtained history, performing a medically appropriate examination, and ordering medications, tests, or procedures. Lucy Mccall APRN.CNP documented in this encounterFair[facility]05-[facility]25 NoteHNO ID: [id number] Author: LUCY MCCALL APRN.CNP Service: ? Author Type: Nurse Practitioner Type: Progress Notes Filed: 03/02/2025 13:41 Note Text: [facility] Department of Cardiovascular Medicine SECTION OF INTERVENTIONAL CARDIOLOGY OUTPATIENT VISIT DATE March 01, 2025 OUTPATIENT VISIT TYPE ESTABLISHED FOLLOW UP [employer]: Dr. Wells Chief Complaint: Patient here for cardiac follow up evaluation History of Present Illness: Patient is a 84 year old female who presents for follow up visit today. Past medical history includes: Aortic stenosis -10/30/2024: s/p TF TAVR with a 23mm Newell Jerry S3 and Stenting of the R-NURSE RESEARCH with a 8.0 x 39 mm [place] VBX Balloon expandable stent by Dr. Wells Coronary artery disease -Cath in 2018 showing moderate RCA and LAD disease, RCA iFR 0.96 and LAD iFR was abnormal at 0.84 (patient opted not to proceed with PCI of mid LAD, hence being medically managed) Chronic diastolic heart failure Hypertension Hyperlipidemia Glaucoma (left eye completely blind) Patient being seen today for post TAVR follow up. On 10/30/2024, underwent 23mm Newell Jerry S3 and Stenting of the R-NURSE RESEARCH with a 8.0 x 39 mm [place] VBX Balloon expandable stent by Dr. Wells. Post procedure echocardiogram completed demonstrating peak/mean gradients 19/11 mmHg, EFFIE 2.15 cm2, DVI 0.52. Discharge EKG SB with first degree HB (TYREL 230, QRS 96). Discharged with DAPT for minimum 6 months. Arterial doppler/PVR at 1, 3, 6, and 12 months post procedure. She last last seen in November by Deng Smith CNP. Echo gradients slightly higher than initial post procedure gradients. Peak/mean 37/21 mmHg from 19/[address] cardiac to rule out HALT. PVR/VARSHA completed today with no change. RLE US completed with new incidental finding of acute DVT in the right soleal vein from proximal to distal calf. Since discharge, patient has been doing really well. She has been working out about 3 times per week and has had no shortness of breath, chest pain, dizziness or lightheadedness. She denies any tenderness, swelling or redness of her RLE extremity. PAST CARDIAC HISTORY: See HPI PAST MEDICAL HISTORY Diagnosis Date Aortic valve stenosis CAD (coronary artery disease) Disease PROBLEM SLEEPING Essential hypertension Glaucoma HTN (hypertension) Mixed hyperlipidemia PAST SURGICAL HISTORY Procedure Laterality Date PROCEDURE 1999, 2006 BOTH HIPS REPLACED PROCEDURE 10/28/2009 LASER OU FOR GLAUCOMA REMV CATARACT EXTRACAP,INSERT LENS Left 04/20/2024 Social History Tobacco Use Smoking status: Never Smokeless tobacco: Never Vaping Use Vaping status: Never Used Substance Use Topics Alcohol use: Never Drug use: Never FAMILY HISTORY Problem Relation Age of Onset Glaucoma Father Diabetes Father Coronary Artery Disease Sister Colon Cancer Maternal Grandmother Stroke Maternal Grandfather Blindness Other GREAT AUNT Colon Cancer Other ALLERGIES No Known Allergies MEDICATIONS: Current Outpatient Medications Medication Sig clopidogrel (PLAVIX) 75 mg tablet Take 1 tablet by mouth once daily. atorvastatin (LIPITOR) 40 mg tablet Take 1 tablet by mouth daily at bedtime. brimonidine (ALPHAGAN) 0.2 % ophthalmic solution Use 2 Drops in the left eye two times a day. latanoprost (XALATAN) 0.005 % ophthalmic solution Use 1 Drop in the left eye daily at bedtime. yexkmbc-avfudfqqh-gztuwhkg,PF (PYW-RKEN-EZC) 0.5-0.15-2 % ophthalmic solution Use 1 Drop in the left eye two times a day. valsartan (DIOVAN) 160 mg tablet Take 0.5 tablets by mouth once daily. carvedilol (COREG) 12.5 mg tablet Take 1 tablet by mouth twice daily with meals. aspirin, enteric coated (ASPIRIN, ENTERIC COATED) 81 mg EC tablet Take 81 mg by mouth once daily. temazepam (RESTORIL) 30 mg cap Take 30 mg by mouth at bedtime as needed. No current facility-administered medications for this visit. REVIEW OF SYSTEMS: PAIN ASSESSMENT: Denies complaints of acute or chronic pain GENERAL: Denies fevers, chills, night sweats, weight gain or loss HEENT: Denies changes in vision, hearing, nose bleeds, or bleeding gums NECK: Denies neck pain, stiffness, or swelling, or swollen lymph nodes RESPIRATORY: See HPI CARDIOVASCULAR: See HPI GI: Denies difficulty swallowing, nausea, vomiting, diarrhea, constipation, or melena : Denies frequency, urgency, or burning, and hematuria MUSCULOSKELETAL: Denies joint pain, swelling, or stiffness SKIN: Denies rashes, lesions, or tears PSYCH: Denies sleep disturbance, mood disorder, or recent psychosocial stressors HEMATOLOGY/LYMPHOLOGY: Denies prolonged bleeding or easy bruising ENDOCRINE: Denies heat or cold intolerance, polydipsia or polyphagia NEURO: Denies syncope, seizures, or numbness or tingling of hands or feet PHYSICAL EXAMINATION: There were no vitals taken for this visit. (more content not included)... [facility]05-06-2025 History of Present illness Narrative* Chyna Meneses RN - 03/02/2025 12:15 PM EDT Radiology Service Progress Note DATE OF SERVICE: March 02, 2025 TIME: 12:16 PM PATIENT WEIGHT: 165 LBS PATIENT IDENTITY VERIFICATION COMPLETED USING TWO (2) STANDARD IDENTIFIERS: Name and Date of confirmed by patient verbally and Name and Date of confirmed by identification band. FALL SCREENING: Has the patient had 2 falls in the last year or 1 fall with injury or currently using an Ambulatory Assistive Device (Walker, Cane, Wheelchair, Crutches, etc.)? No PATIENT GENDER DATA: Assigned female at . status: status: NO. ALLERGIES: Reviewed and unchanged CONTRAST ALLERGY: No EXAM: CT -CONTRAST INDUCED NEPHROPATHY RISK FACTORS: Patient age > 60 years CREATININE: Creatinine Date Value Ref Range Status 12/23/2024 0.85 0.58 - 0.96 mg/dL Final 10/31/2024 0.71 0.58 - 0.96 mg/dL Final Creatinine (POCT) Date Value Ref Range Status 03/02/2025 1.00 0.7 - 1.4 mg/dL Final eGFR (POCT) Date Value Ref Range Status 03/02/2025 55 mL/min/1.73 m2 Final eGFR- Date Value Ref Range Status 03/24/2019 >60 Final P.O.C.T. RESULTS: POC done: Yes, See Lab Tab March 02, 2025 TREATMENT: N/A IV SITE: Ambulatory: A peripheral IV was started in the Left antecubital site with a Angio cath: 20gauge. and A Saline lock was inserted per protocol IV SITE APPEARANCE: Clean,Dry and Intact SIGNATURE: Chyna Meneses RN PATIENT NAME: Gogo Ware DATE: March 02, 2025 TIME: 12:16 PM * Danielle Bueno RT(R) - 03/02/2025 12:15 PM EDT Radiology Service Progress Note PATIENT NAME: Gogo Ware DATE OF SERVICE: March 02, 2025 TIME: 12:32 PM PATIENT IDENTITY VERIFICATION COMPLETED USING TWO (2) IDENTIFIERS: Name and Date of confirmedby patient verbally. FALL SCREENING: Has the patient had 2 falls in the last year or 1 fall with injury or currently using an Ambulatory Assistive Device (Walker, Cane, Wheelchair, Crutches, etc.)? No PATIENT GENDER DATA: Assigned female at . status: : No status:NO. PATIENT RELEVANT IMPLANT DATA REVIEWED: Yes PATIENT PRESENTS WITH AN IMPLANTABLE OR ATTACHED WELL DRILL OPERATOR CABLE TOOL: No RADIOLOGY DEPARTMENT: CT; Exam(s) Completed: Cardiac PERIPHERAL IV DATA: Site assessment: Clean,Dry and Intact, Site disposition Discontinued SIGNED BY: ZAC Brewster) March 02, 2025 12:32 PM documented in this encounterFairfield [facility] Center05-06-2025 NoteHNO ID: [id number] Author: DANIELLE BUENO RT(R) Service: Radiology Author Type: Technologist Type: Progress Notes Filed: 03/02/2025 12:32 Note Text: Radiology Service Progress Note PATIENT NAME: Gogo Ware DATE OF SERVICE: March 02, 2025 TIME: 12:32 PM PATIENT IDENTITY VERIFICATION COMPLETED USING TWO (2) IDENTIFIERS: Name and Date of confirmed by patient verbally. FALL SCREENING: Has the patient had 2 falls in the last year or 1 fall with injury or currently using an Ambulatory Assistive Device (Walker, Cane, Wheelchair, Crutches, etc.)? No PATIENT GENDER DATA: Assigned female at . status: : No status: NO. PATIENT RELEVANT IMPLANT DATA REVIEWED: Yes PATIENT PRESENTS WITH AN IMPLANTABLE OR ATTACHED WELL DRILL OPERATOR CABLE TOOL: No RADIOLOGY DEPARTMENT: CT; Exam(s) Completed: Cardiac PERIPHERAL IV DATA: Site assessment: Clean,Dry and Intact, Site disposition Discontinued SIGNED BY: RT Narcisa(R) March 02, 2025 12:32 [facility]05-06-2025 NoteHNO ID: [id number] Author: CHYNA MENESES RN Service: Nursing Author Type: Registered Nurse Type: Progress Notes Filed: 03/02/2025 12:29 Note Text: Radiology Service Progress Note DATE OF SERVICE: March 02, 2025 TIME: 12:16 PM PATIENT WEIGHT: 165 LBS PATIENT IDENTITY VERIFICATION COMPLETED USING TWO (2) STANDARD IDENTIFIERS: Name and Date of confirmed by patient verbally and Name and Date of confirmed by identification band. FALL SCREENING: Has the patient had 2 falls in the last year or 1 fall with injury or currently using an Ambulatory Assistive Device (Walker, Cane, Wheelchair, Crutches, etc.)? No PATIENT GENDER DATA: Assigned female at . status: status: NO. ALLERGIES: Reviewed and unchanged CONTRAST ALLERGY: No EXAM: CT -CONTRAST INDUCED NEPHROPATHY RISK FACTORS: Patient age > 60 years CREATININE: Creatinine Date Value Ref Range Status 12/23/2024 0.85 0.58 - 0.96 mg/dL Final 10/31/2024 0.71 0.58 - 0.96 mg/dL Final Creatinine (POCT) Date Value Ref Range Status 03/02/2025 1.00 0.7 - 1.4 mg/dL Final eGFR (POCT) Date Value Ref Range Status 03/02/2025 55 mL/min/1.73 m2 Final eGFR- Date Value Ref Range Status 03/24/2019 >60 Final P.O.C.T. RESULTS: POC done: Yes, See Lab Tab March 02, 2025 TREATMENT: N/A IV SITE: Ambulatory: A peripheral IV was started in the Left antecubital site with a Angio cath: 20 gauge. and A Saline lock was inserted per protocol IV SITE APPEARANCE: Clean,Dry and Intact SIGNATURE: Chyna Meneses RN PATIENT NAME: Gogo Ware DATE: March 02, 2025 TIME: 12:16 [facility]05-05-2025 Telephone encounter Note* Telephone Encounter - Raven Zazueta - 03/01/2025 9:25 AM EDT Called patient back and told her fasting was not necessary [facility]05-05-[facility] Miscellaneous Notes* Telephone Encounter - Raven Zazueta - 03/01/2025 9:25 AM EDT Called patient back and told her fasting was not necessary documented in this encounterFairfield [facility] Center05-05-2025 Telephone encounter Note * Telephone Encounter - Raven Zazueta - 03/01/2025 9:15 AM EDT Althea had questions about the three different labs she is having done tomorrow morning. Patient wanted to clarify that the tests were not duplicates. Patient also asked if she had to fast before labs. I instructed the patient to fast for 12 hours prior to labs. [facility]05-05-[facility] Miscellaneous Notes* Telephone Encounter - Raven Zazueta - 03/01/2025 9:15 AM EDT Althea had questions about the three different labs she is having done tomorrow morning. Patient wanted to clarify that the tests were not duplicates. Patient also asked if she had to fast before labs. I instructed the patient to fast for 12 hours prior to labs. documented in this encounterFairfield [facility] Center03-14-2025 Telephone encounter Note * Telephone Encounter - Lita Lora - 01/08/2025 2:34 PM EDT Images from the original note were not included. Notes and reports sent to [facility], along with order [facility]03-14-[facility] Miscellaneous Notes* Telephone Encounter - Lita Lora - 01/08/2025 2:34 PM EDT Images from the original note were not included. Notes and reports sent to [facility], along with order documented in this encounterFairfield Medical Center03-12-2025 NoteHNO ID: [id number] Author: ?, ?, ? Service: ? Author Type: ? Type: Progress Notes Filed: 01/06/2025 09:43 Note Text: Summary: KCCQ-12 AMB TVT FOLLOWUP: Follow Up Type: Phone Call Call Attempt: 1st Attempt Call Status: Questionnaire Answered [place] Cardiomyopathy Questionnaire (KCCQ-12) 1. How much you are limited by heart failure (shortness of breath or fatigue) in your ability to do the following activities over the past 2 weeks A. Activity - Showering/bathin - Not at all limited B. Activity - Walking 1 block on level ground: 5 - Not at all limited C. Activity - Hurrying or jogging (as if to catch a bus): 5 - Not at all limited 2. Over the past 2 weeks, how many times did you have swelling in your feet, ankles or legs when you woke up in the morning?: 5: Never over the past 2 weeks 3. Over the past 2 weeks, on average, how many times did you has fatigue limited your ability to do what you wanted?: 7: Never over the past 2 weeks 4. Over the past 2 weeks, on average, how many times has shortness of breath limited your ability to do what you wanted?: 7: Never over the past 2 weeks 5. Over the past 2 weeks, on average, how many times have you been forced to sleep sitting up in a chair or with at least 3 pillows to prop you up because of shortness of breath?: 5: Never over the past 2 weeks 6. Over the past 2 weeks, how much has your heart failure limited your enjoyment of life?: 5: It has not limited my enjoyment of life at all 7. If you had to spend the rest of your life with your heart failure the way it is right now, how would you feel about this?: 5 - Completely satisfied 8. How much does your heart failure affect your lifestyle? Please indicate how your heart failure may have limited your participation in the following activities over the past 2 weeks? A. Hobbies, recreational activities: 5 - Did not limit at all B. 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 Visiting family or friends out of your home: 5 - Did not limit at all [facility]03-12-2025 History of Present illness Narrative* Jayde Jenelle Inman - 01/06/2025 9:31 AM EDTSummary: KCCQ-12 AMB TVT FOLLOWUP: Follow Up Type: Phone Call Call Attempt: 1st Attempt Call Status: Questionnaire Answered [place] Cardiomyopathy Questionnaire (KCCQ-12) 1. How much you are limited by heart failure (shortness of breath or fatigue) in your ability to dothe following activities over the past 2 weeks A. Activity - Showering/bathin - Not at all limited B. Activity - Walking 1 block on level ground: 5 - Not at all limited C. Activity - Hurrying or jogging (as if to catch a bus): 5 - Not at all limited 2. Over the past 2 weeks, how many times did you have swelling in your feet, ankles or legs when you woke up in the morning?: 5: Never over the past 2 weeks 3. Over the past 2 weeks, on average, how many times did you has fatigue limited your ability to dowhat you wanted?: 7: Never over the past 2 weeks 4. Over the past 2 weeks, on average, how many times has shortness of breath limited your ability to do what you wanted?: 7: Never over the past 2 weeks 5. Over the past 2 weeks, on average, how many times have you been forced to sleep sitting up in a chair or with at least 3 pillows to prop you up because of shortness of breath?: 5: Never over the past 2 weeks 6. Over the past 2 weeks, how much has your heart failure limited your enjoyment of life?: 5: It has not limited my enjoyment of life at all 7. If you had to spend the rest of your life with your heart failure the way it is right now, how would you feel about this?: 5 - Completely satisfied 8. How much does your heart failure affect your lifestyle? Please indicate how your heart failure may have limited your participation in the following activities over the past 2 weeks? A. Hobbies, recreational activities: 5 - Did not limit at all B. 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 Visiting family or friends out of your home: 5 - Did not limit at all documented in this encounterFairfield Medical Center03-12-2025 NotePatient Outreach (CIUMN) CHAZGOGO Hien ([id number]) 1940 F Date Time Provider Department 01/06/25 JENELLE DONOHUE During your visit today, we recorded the following information about you: JaydeMalachiJenelle C 01/06/2025 9:43 AM Signed AMB TVT FOLLOWUP: Follow Up Type: Phone Call Call Attempt: 1st Attempt Call Status: Questionnaire Answered [place] Cardiomyopathy Questionnaire (KCCQ-12) 1. How much you are limited by heart failure (shortness of breath or fatigue) in your ability to do the following activities over the past 2 weeks A. Activity - Showering/bathin - Not at all limited B. Activity - Walking 1 block on level ground: 5 - Not at all limited C. Activity - Hurrying or jogging (as if to catch a bus): 5 - Not at all limited 2. Over the past 2 weeks, how many times did you have swelling in your feet, ankles or legs when you woke up in the morning?: 5: Never over the past 2 weeks 3. Over the past 2 weeks, on average, how many times did you has fatigue limited your ability to do what you wanted?: 7: Never over the past 2 weeks 4. Over the past 2 weeks, on average, how many times has shortness of breath limited your ability to do what you wanted?: 7: Never over the past 2 weeks 5. Over the past 2 weeks, on average, how many times have you been forced to sleep sitting up in a chair or with at least 3 pillows to prop you up because of shortness of breath?: 5: Never over the past 2 weeks 6. Over the past 2 weeks, how much has your heart failure limited your enjoyment of life?: 5: It has not limited my enjoyment of life at all 7. If you had to spend the rest of your life with your heart failure the way it is right now, how would you feel about this?: 5 - Completely satisfied 8. How much does your heart failure affect your lifestyle? Please indicate how your heart failure may have limited your participation in the following activities over the past 2 weeks? A. Hobbies, recreational activities: 5 - Did not limit at all B. 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 Visiting family or friends out of your home: 5 - Did not limit at all Allergies As of Date: 01/06/2025 (No Known Allergies) Date Reviewed: 12/23/2024 Reviewed by: Farhana Alejandra MA - Fully Assessed Prescriptions as of 01/06/2025 - clopidogrel (PLAVIX) 75 mg tablet Take 1 tablet by mouth once daily. - atorvastatin (LIPITOR) 40 mg tablet Take 1 tablet by mouth daily at bedtime. - brimonidine (ALPHAGAN) 0.2 % ophthalmic solution Use 2 Drops in the left eye two times a day. - latanoprost (XALATAN) 0.005 % ophthalmic solution Use 1 Drop in the left eye daily at bedtime. - tagwxsz-knliclsow-upqrpoxa,PF (WNL-YIJW-ITR) 0.5-0.15-2 % ophthalmic solution Use 1 Drop in the left eye two times a day. - valsartan (DIOVAN) 160 mg tablet Take 0.5 tablets by mouth once daily. - carvedilol (COREG) 12.5 mg tablet Take 1 tablet by mouth twice daily with meals. - aspirin, enteric coated (ASPIRIN, ENTERIC COATED) 81 mg EC tablet Take 81 mg by mouth once daily. - temazepam (RESTORIL) 30 mg cap Take 30 mg by mouth at bedtime as needed. Meds Comments as of 01/05/2013: PT STATES SHE USES ANOTHER DROP, GREEN TOP, AT NIGHT OU Problem List As Of Date 01/06/2025 Noted Resolved Mixed hyperlipidemia [E78.2] 02/26/2019 Essential (primary) hypertension [I10] 09/09/2017 Coronary artery disease involving [place] guo*04/07/2024 Insomnia [G47.00] 04/07/2024 Glaucoma [H40.9] 04/07/2024 Nonrheumatic aortic valve stenosis [I35.0] 04/07/2024 Acute on chronic diastolic congestive heart kayley*10/29/2024 Severe aortic stenosis [I35.0] 10/30/2024 S/P TAVR (transcatheter aortic valve replacemen*10/30/2024 Encounter Status:Closed by JENELLE DONOHUE on 01/06/25[facility] 12-24-2024 Telephone encounter Note* Telephone Encounter - Lucy Mccall APRN.CNP - 12/24/2024 2:10 PM EST Sent to scheduling. Lucy Mccall APRN.CNP [facility] Work Phone: [phone]) 823-481402-27-2025 Miscellaneous Notes* Telephone Encounter - Lucy Mccall APRN.CNP - 12/24/2024 2:10 PM EST Sent to scheduling. Lucy Mccall APRN.CNP * Telephone Encounter - Chuckie Wells RN - 12/24/2024 1:03 PM EST [facility] Phone Encounter DATE of SERVICE: 12/24/2024 TIME of SERVICE: 1:03 PM Status: Non-urgent, needs attention Service/Provider: Odilon Clifton MD Reason for call: Follow-up Appointment Contact information: [phone] Resolution: Sent to [facility] Comments: Pt family member is trying to schedule below papi and CT per instructions from yesterdays visit, see below. She states she has been transferred multiple times and still not been able to schedule appointment. Per OVN 12/23 with Deng Smith Follow up/Disposition: Cardiac rehab referral placed CT Cardiac W/ IV Contrast to assess for HALT--will have follow up appointment with [facility] directly afterwards---[phone] With cardiology as scheduled/requested- sooner if needed. Will need Arterial Doppler and PVR at 3 mo Chuckie Wells RN Date of Resolution: 12/24/2024 Time of Resolution 1:03 PM documented in [facility] Telephone encounter Note * Telephone Encounter - Chuckie Wells RN - 12/24/2024 1:03 PM EST [facility] Phone Encounter DATE of SERVICE: 12/24/2024 TIME of SERVICE: 1:03 PM Status: Non-urgent, needs attention Service/Provider: Odilon Clifton MD Reason for call: Follow-up Appointment Contact information: [phone] [facility] Comments: Pt family member is trying to schedule below papi and CT per instructions from yesterdays visit, see below. She states she has been transferred multiple times and still not been able to schedule appointment. Per OVN 12/23 with Deng Smith Follow up/Disposition: Cardiac rehab referral placed CT Cardiac W/ IV Contrast to assess for HALT--will have follow up appointment with Interventional [employer] [facility] directly afterwards---[phone] With cardiology as scheduled/requested- sooner if needed. Will need Arterial Doppler and PVR at 3 mo Chuckie Wells RN Date of Resolution: 12/24/2024 Time of Resolution 1:03 PM [facility]02-26-2025 Instructions* Patient Instructions* Deng Smith, CATEGORY MANAGER.MEDICAL RECORDS SPECIALIST - 12/23/2024 2:14 PM EST Aggressive risk factor modification as appropriate. -- BP Goal < 130/80 with nonpharmacologic and medical therapy -- LDL goal 50% reduction AND level < 55-70 mg/dL using max tolerated statin +/- adjuvant therapy -- HbA1C < 7% -- Healthy diet and exercise +/- weight loss if appropriate. - Smoking and alcohol abstinence/cessation, if applicable Follow up/Disposition: Cardiac rehab referral placed CT Cardiac W/ IV Contrast to assess for HALT--will have follow up appointment with [employer] [facility] directly afterwards---[phone] With cardiology as scheduled/requested- sooner if needed. Will need Arterial Doppler and PVR at 3 mo Follow up with PCP for low platelets Education/Counseling: We have discussed the following pharmacological measures during this visit: Reviewed all medications. Patient is able to get medications with out issues Reviewed any possible side effects of medications. Take ALL medications as prescribed. We discussed the following non-pharmacological measures during this visit: Diet: Eat a low-salt (sodium) diet Read food labels for sodium content. Mediterranean Diet Weight: Check for swelling in your feet, ankles, legs, and stomach. Weigh yourself each morning before breakfast. Compare If your weight goes up or down 4lbs from your dry weight, call your dermatology physician assistant Exercise: Be active and exercise every day. Smoking and alcohol abstinence/cessation, if applicable Heart Failure Education Booklet: information given previously. Please Visit [email or web address] Questions or Concerns after you go home? Please call Nurse foundation coordinator line at . documented in this encounterFairfield [facility] Center02-26-2025 History of Present illness Narrative* Deng Smith APRN.CNP - 12/23/2024 1:30 PM EST Images from the original note were not included. [facility] Department of Cardiovascular Medicine SECTION OF INTERVENTIONAL CARDIOLOGY OUTPATIENT VISIT DATE December 23, 2024 OUTPATIENT VISIT TYPE ESTABLISHED FOLLOW UP [employer]: Russell Donald MD Chief Complaint: Patient here for cardiac follow up evaluation History of Present Illness: SEE ASSESSMENT IMPRESSION CARDIOVASCULAR MEDICINE TESTING: I have personally reviewed the above testing. Physical Examination: BP 128/53 Pulse 64 Resp 18 Ht 165.1 cm (5' 5") Wt 74.4 kg (164 lb) SpO2 97% BMI 27.29 kg/m General: no acute distress- Skin warm and dry Neck- no JVP or bruits Lungs- breath sounds clear throughout. Heart- no murmur Abd- Soft nontedner, +BSx4 ext- no edema ACCESS SITE ASSESSMENT: Arterial Access SITES: Upper extremity - RUE; Clean, dry and intact Groin - right; Clean, dry and intact Motor Affected Extremity: muscle strength 5/5 both upper and lower extremities Sensory Examination: Neuro/Sensation is intact throughout Pulses/Signals: Radial Right: Palpable +2 - Left: Palpable +2 Posterior Tibial Right: Palpable +2 - Left: Palpable +2 Musculoskeletal: No deformities Neurologic/Psychiatric: Oriented to time, place & person, MAEx4 and No gross focal neurologic deficits ASSESSMENT/ IMPRESSION Patient is a 84 year old female who presents for follow up visit today with pmhx of: CAD (cath in 2018 showing moderate RCA and LAD disease, RCA iFR 0.96 and LAD iFR was abnormal at 0.84 (patient opted not to proceed with PCI of mid LAD, hence being medically managed) Severe aortic stenosis 10/30/2024 s/p TAVR 23 S3 and Stenting of the R-NURSE RESEARCH with a 8.0 x 39 mm [place] VBX Balloon expandable stent, RLE Arterial Doppler and PVR completed, right NURSE RESEARCH stent patent HFpEF (EF 64%) HTN HLD Glaucoma (left eye completely blind) Since last vist has been feeling well Does not eat any sugar. Uses avocado and olive oils. She tries to eat salmon rather than red meat. Denies recent ED visit/hospitalizations, chest pain, NAPIER, orthopnea, palpitations, edema, syncope, fevers, chills, nausea, vomiting, ABD pain, bloody urine, bloody/dark stool, acute vision changes. PLAN AND RECOMMENDATIONS: - will need DAPT for at least 6 months - will need Arterial Doppler and PVR at 1 mo, 3 mo,6 mo and 12 months after procedure. [id number] mg daily DAPT plavix 75 mg daily starting 10/31/2024 AC N/A Post procedural antibiotic for 3-7 days and the SBE prophylaxis. Beta Madhu: coreg 12.5 mg twice daily ACEI/ARB/ARNI valsartan 80 mg daily SGLT2 inhibitor N/A Diuretic: N/A Aldosterone antagonist: N/A Statin lipitor 40 mg daily Additional Medications: Eye drops Restoril 30 mg as needed before bed Tele/EKG (Images/strips reviewed) Sr w/ 1st degree HB Device therapy: N/A Aggressive risk factor modification as appropriate. -- BP Goal < 130/80 with nonpharmacologic and medical therapy -- LDL goal 50% reduction AND level < 55-70 mg/dL using max tolerated statin +/- adjuvant therapy -- HbA1C < 7% -- Healthy diet and exercise +/- weight loss if appropriate. - Smoking and alcohol abstinence/cessation, if applicable Follow up/Disposition: Cardiac rehab referral placed CT Cardiac W/ IV Contrast to assess for HALT--will have follow up appointment with [facility] directly afterwards---[phone] With cardiology as scheduled/requested- sooner if needed. Will need Arterial Doppler and PVR at 3 mo Follow up with PCP for low platelets Education/Counseling: We have discussed the following pharmacological measures during this visit: Reviewed all medications. Patient is able to get medications with out issues Reviewed any possible side effects of medications. Take ALL medications as prescribed. We discussed the following non-pharmacological measures during this visit: Diet: Eat a low-salt (sodium) diet Read food labels for sodium content. Mediterranean Diet Weight: Check for swelling in your feet, ankles, legs, and stomach. Weigh yourself each morning before breakfast. Compare If your weight goes up or down 4lbs from your dry weight, call your dermatology physician assistant Exercise: Be active and exercise every day. Smoking and alcohol abstinence/cessation, if applicable Heart Failure Education Booklet: information given previously. Please Visit [email or web address] Questions or Concerns after you go home? Please call Nurse foundation coordinator line at . I spent a total of >40 minutes on the date of the service which included preparing to see the patient, [id number] patient care, completing clinical documentation, obtaining and/or reviewing separately obtained history, performing a medically appropriate examination, counseling and educating the patient/family/caregiver, independently interpreting results (not separately reported), and communicating results to the patient/family/caregiver. Deng Smith APRN.CNP documented in this encounterFairfield Medical Center02-26-2025 NoteHNO ID: [id number] Author: DENG SMITH APRN.CNP Service: ? Author Type: Nurse Practitioner Type: Progress Notes Filed: 12/23/2024 14:15 Note Text: [facility] Department of Cardiovascular Medicine SECTION OF INTERVENTIONAL CARDIOLOGY OUTPATIENT VISIT DATE December 23, 2024 OUTPATIENT VISIT TYPE ESTABLISHED FOLLOW UP [employer]: Russell Donald MD Chief Complaint: Patient here for cardiac follow up evaluation History of Present Illness: SEE ASSESSMENT IMPRESSION CARDIOVASCULAR MEDICINE TESTING: I have personally reviewed the above testing. Physical Examination: BP 128/53 Pulse 64 Resp 18 Ht 165.1 cm (5' 5") Wt 74.4 kg (164 lb) SpO2 97% BMI 27.29 kg/m? General: no acute distress- Skin warm and dry Neck- no JVP or bruits Lungs- breath sounds clear throughout. Heart- no murmur Abd- Soft nontedner, +BSx4 ext- no edema ACCESS SITE ASSESSMENT: Arterial Access SITES: Upper extremity - RUE; Clean, dry and intact Groin - right; Clean, dry and intact Motor Affected Extremity: muscle strength 5/5 both upper and lower extremities Sensory Examination: Neuro/Sensation is intact throughout Pulses/Signals: Radial Right: Palpable +2 - Left: Palpable +2 Posterior Tibial Right: Palpable +2 - Left: Palpable +2 Musculoskeletal: No deformities Neurologic/Psychiatric: Oriented to time, place AND person, MAEx4 and No gross focal neurologic deficits ASSESSMENT/ IMPRESSION Patient is a 84 year old female who presents for follow up visit today with pmhx of: CAD (cath in 2018 showing moderate RCA and LAD disease, RCA iFR 0.96 and LAD iFR was abnormal at 0.84 (patient opted not to proceed with PCI of mid LAD, hence being medically managed) Severe aortic stenosis 10/30/2024 s/p TAVR 23 S3 and Stenting of the R-NURSE RESEARCH with a 8.0 x 39 mm [place] VBX Balloon expandable stent, RLE Arterial Doppler and PVR completed, right NURSE RESEARCH stent patent HFpEF (EF 64%) HTN HLD Glaucoma (left eye completely blind) Since last vist has been feeling well Does not eat any sugar. Uses avocado and olive oils. She tries to eat salmon rather than red meat. Denies recent ED visit/hospitalizations, chest pain, NAPIER, orthopnea, palpitations, edema, syncope, fevers, chills, nausea, vomiting, ABD pain, bloody urine, bloody/dark stool, acute vision changes. PLAN AND RECOMMENDATIONS: - will need DAPT for at least 6 months - will need Arterial Doppler and PVR at 1 mo, 3 mo,6 mo and 12 months after procedure. [id number] mg daily DAPT plavix 75 mg daily starting 10/31/2024 AC N/A Post procedural antibiotic for 3-7 days and the SBE prophylaxis. Beta Madhu: coreg 12.5 mg twice daily ACEI/ARB/ARNI valsartan 80 mg daily SGLT2 inhibitor N/A Diuretic: N/A Aldosterone antagonist: N/A Statin lipitor 40 mg daily Additional Medications: Eye drops Restoril 30 mg as needed before bed Tele/EKG (Images/strips reviewed) Sr w/ 1st degree HB Device therapy: N/A Aggressive risk factor modification as appropriate. -- BP Goal < 130/80 with nonpharmacologic and medical therapy -- LDL goal 50% reduction AND level < 55-70 mg/dL using max tolerated statin +/- adjuvant therapy -- HbA1C < 7% -- Healthy diet and exercise +/- weight loss if appropriate. - Smoking and alcohol abstinence/cessation, if applicable Follow up/Disposition: Cardiac rehab referral placed CT Cardiac W/ IV Contrast to assess for HALT--will have follow up appointment with [facility] directly afterwards---[phone] With cardiology as scheduled/requested- sooner if needed. Will need Arterial Doppler and PVR at 3 mo Follow up with PCP for low platelets Education/Counseling: We have discussed the following pharmacological measures during this visit: Reviewed all medications. Patient is able to get medications with out issues Reviewed any possible side effects of medications. Take ALL medications as prescribed. We discussed the following non-pharmacological measures during this visit: Diet: Eat a low-salt (sodium) diet Read food labels for sodium content. Mediterranean Diet Weight: Check for swelling in your feet, ankles, legs, and stomach. Weigh yourself each morning before breakfast. Compare If your weight goes up or down 4lbs from your dry weight, call your dermatology physician assistant Exercise: Be active and exercise every day. Smoking and alcohol abstinence/cessation, if applicable Heart Failure Education Booklet: information given previously. Please Visit [email or web address] Questions or Concerns after you go home? Please call Nurse foundation coordinator line at . I spent a total of >40 minutes on the date of the service which included preparing to see the patient, [id number] patient care, completing clinical documentation, obtaining and/or reviewing separately obtained history, performing a medically appropriate (more content not included)...[facility]01-14-2025 Instructions* Patient Instructions* Deng Koenig APRN.MEDICAL RECORDS SPECIALIST - 11/10/2024 10:05 AM EST No longer required to have restrictions Start cardiac rehab 3-4 weeks post procedure Continue medications as prescribed Follow-up as scheduled Deng Koenig APRN.CNP documented in this encounterFairfield Medical Center01-14-2025 History of Present illness Narrative* Deng Koenig APRN.CNP - 11/10/2024 9:45 AM EST Images from the original note were not included. [facility] Department of Cardiovascular Medicine SECTION OF INTERVENTIONAL CARDIOLOGY OUTPATIENT VISIT DATE November 10, 2024 OUTPATIENT VISIT TYPE ESTABLISHED FOLLOW UP [employer]: Dr. Lindo Chief Complaint: Patient here for cardiac follow up evaluation History of Present Illness: Patient is a 84 year old female who presents for follow up visit today. Past medical history includes: CAD (cath in 2018 showing moderate RCA and LAD disease, RCA iFR 0.96 and LAD iFR was abnormal at 0.84 (patient opted not to proceed with PCI of mid LAD, hence being medically managed) Severe aortic stenosis 10/30/2024 s/p TAVR 23 S3 and Stenting of the R-NURSE RESEARCH with a 8.0 x 39 mm [place] VBX Balloon expandable stent, RLE Arterial Doppler and PVR completed, right NURSE RESEARCH stent patent HFpEF (EF 64%) HTN HLD Glaucoma (left eye completely blind) Patient underwent TAVR 23 S3 and Stenting of the R-NURSE RESEARCH with a 8.0 x 39 mm [place] VBX Balloon expandable stent on 10/30/[address] Wells. RLE Arterial Doppler and PVR completed, right NURSE RESEARCH stent patent. Patient presents today for hospital follow-up visit. Patient states she is doing very well following her procedure. She denies any chest pain, shortnessof breath, or groin pain. Her only complaint is fatigue and decreased energy levels. She is interested in starting cardiac rehab, a referral has been placed. Her incision sites are healing appropriately without redness, swelling, or drainage noted. ECG completed and NSR with [id number] degree HB. Patient to follow-up next month with ECHO, Groin US and PVR's. Denies chest pain, shortness of breath, dyspnea on exertion, orthopnea, palpitations, lightheadedness, syncope, leg swelling, and wheezing PAST CARDIAC HISTORY: See HPI PAST MEDICAL HISTORY Diagnosis Date Aortic valve stenosis CAD (coronary artery disease) Disease PROBLEM SLEEPING Essential hypertension Glaucoma HTN (hypertension) Mixed hyperlipidemia PAST SURGICAL HISTORY Procedure Laterality Date PROCEDURE 1999, 2006 BOTH HIPS REPLACED PROCEDURE 10/28/2009 LASER OU FOR GLAUCOMA REMV CATARACT EXTRACAP,INSERT LENS Left 04/20/2024 Social History Tobacco Use Smoking status: Never Smokeless tobacco: Never Vaping Use Vaping status: Never Used Substance Use Topics Alcohol use: Never Drug use: Never FAMILY HISTORY Problem Relation Age of Onset Glaucoma Father Diabetes Father Coronary Artery Disease Sister Colon Cancer Maternal Grandmother Stroke Maternal Grandfather Blindness Other GREAT AUNT Colon Cancer Other ALLERGIES No Known Allergies MEDICATIONS: Current Outpatient Medications Medication Sig clopidogrel (PLAVIX) 75 mg tablet Take 1 tablet by mouth once daily. atorvastatin (LIPITOR) 40 mg tablet Take 1 tablet by mouth daily at bedtime. brimonidine (ALPHAGAN) 0.2 % ophthalmic solution Use 2 Drops in the left eye two times a day. latanoprost (XALATAN) 0.005 % ophthalmic solution Use 1 Drop in the left eye daily at bedtime. hlxbhpu-ktvvbbglv-bpbtnltx,PF (YXV-IECD-QFT) 0.5-0.15-2 % ophthalmic solution Use 1 Drop in the left eye two times a day. valsartan (DIOVAN) 160 mg tablet Take 0.5 tablets by mouth once daily. carvedilol (COREG) 12.5 mg tablet Take 1 tablet by mouth twice daily with meals. aspirin, enteric coated (ASPIRIN, ENTERIC COATED) 81 mg EC tablet Take 81 mg by mouth once daily. temazepam (RESTORIL) 30 mg cap Take 30 mg by mouth at bedtime as needed. No current facility-administered medications for this visit. REVIEW OF SYSTEMS: PAIN ASSESSMENT: Denies complaints of acute or chronic pain GENERAL: Denies fevers, chills, night sweats, weight gain or loss HEENT: Denies changes in vision, hearing, nose bleeds, or bleeding gums NECK: Denies neck pain, stiffness, or swelling, or swollen lymph nodes RESPIRATORY: See HPI CARDIOVASCULAR: See HPI GI: Denies difficulty swallowing, nausea, vomiting, diarrhea, constipation, or melena : Denies frequency, urgency, or burning, and hematuria MUSCULOSKELETAL: Denies joint pain, swelling, or stiffness SKIN: Denies rashes, lesions, or tears PSYCH: Denies sleep disturbance, mood disorder, or recent psychosocial stressors HEMATOLOGY/LYMPHOLOGY: Denies prolonged bleeding or easy bruising ENDOCRINE: Denies heat or cold intolerance, polydipsia or polyphagia NEURO: Denies syncope, seizures, or numbness or tingling of hands or feet PHYSICAL EXAMINATION: BP 133/55 Pulse 62 Resp 16 Wt 164 lb (74.4kg) SpO2 97% General: No acute distress Skin: warm, dry, and intact; no rashes or lesions noted Neck: No JVD Lungs: Breath sounds clear, respiratory effort normal Heart: Regular rhythm, no murmur, no edema noted Abdomen: Soft nontedner, +BSx4 Extremities: Distal pulses intact, MAEx4 Musculoskeletal: No deformities Neurologic/Psychiatric: Oriented to time, place & person and no gross focal neurologic deficits ACCESS SITE ASSESSMENT: Arterial Access SITES: Upper extremity - RUE; KAREN no redness or swelling or drainage noted Groin - right; ACADEMIC ADVISING DIRECTOR no redness or swelling or drainage noted Motor Affected Extremity: muscle strength 5/5 both upper and lower extremities Sensory Examination: Neuro/Sensation is intact throughout Pulses/Signals: Radial Right: Palpable +2 - Left: Palpable +2 Dorsalis Pedis Right: Palpable +2 - Left: Palpable +2 CARDIOVASCULAR MEDICINE TESTING: Electrocardiogram: NSR w/ 1st degree HB Last ECHO Result Conclusion ECHO Collected: 10/30/2024 10:18 AM (Final result) Impression: CONCLUSIONS: - Technically difficult exam due to post op and suboptimal positioning. - Exam indication: S/p TAVR - The left ventricle is normal in size. Left ventricular systolic function is normal. EF = 61 5% (2D 4-ch.) Left ventricular diastolic function was not evaluated due to Limited Echo. - The right ventricle is normal in size. Right ventricular systolic function is normal. - S/P transcatheter aortic valve replacement. [place]ell S3 Ultra prosthetic aortic valve (size #23). There is no aortic valve regurgitation. The peak gradient is 19 mmHg, the mean gradient is 11 mmHg and the dimensionless valve index is 0.52. - Estimated right ventricular systolic pressure is not reported due to an insufficient tricuspid regurgitation signal. Estimated right atrial pressure is 3 mmHg based on IVC assessment. - Exam was compared with the prior CC echocardiographic exam performed on 10/30/24. Similar findings. * * * Final * * * I have personally reviewed the Electrocardiogram. IMPRESSION: Gogo Ware is an 84 year old female with pmhx of: CAD (cath in 2018 showing moderate RCA and LAD disease, RCA iFR 0.96 and LAD iFR was abnormal at 0.84 (patient opted not to proceed with PCI of mid LAD, hence being medically managed) Severe aortic stenosis 10/30/2024 s/p TAVR 23 S3 and Stenting of the R-NURSE RESEARCH with a 8.0 x 39 mm [place] VBX Balloon expandable stent, RLE Arterial Doppler and PVR completed, right NURSE RESEARCH stent patent HFpEF (EF 64%) HTN HLD Glaucoma (left eye completely blind) Patient underwent TAVR 23 S3 and Stenting of the R-NURSE RESEARCH with a 8.0 x 39 mm [place] VBX Balloon expandable stent on 10/30/[address] Wells. RLE Arterial Doppler and PVR completed, right NURSE RESEARCH stent patent. Patient presents today for hospital follow-up visit. Patient states she is doing very well following her procedure. She denies any chest pain, shortnessof breath, or groin pain. Her only complaint is fatigue and decreased energy levels. She is interested in starting cardiac rehab, a referral has been placed. Her incision sites are healing appropriately without redness, swelling, or drainage noted. ECG completed and NSR with [id number] degree HB. Patient to follow-up next month with ECHO, Groin US and PVR's. Echo post procedure: Newell S3 Ultra prosthetic valve size #23. There is no aortic valve regurgitation. S/P transcatheter aortic valve replacement. The peak gradient is 19 mmHg (peak velocity = 217.0 cm/s). The mean gradient is 11 mmHg. The LVOT mean velocity is 75.4 cm/s. The LVOT diameter is 2.3 cm. The aortic VTI is 53.3 cm. The mean velocity in the aortic valve is 155.0 cm/s. The dimensionless valve index is 0.52. AV area is 2.15 cm (1.16 cm /m ) by continuity, VTI. The LVOT stroke volume index is 63 ml/m . PLAN AND RECOMMENDATIONS: - will need DAPT for at least 6 months - will need Arterial Doppler and PVR at 1 mo, 3 mo,6 mo and 12 months after procedure. [id number] mg daily DAPT plavix 75 mg daily starting 10/31/2024 AC N/A Post procedural antibiotic for 3-7 days and the SBE prophylaxis. Beta Madhu: coreg 12.5 mg twice daily ACEI/ARB/ARNI valsartan 80 mg daily SGLT2 inhibitor N/A Diuretic: N/A Aldosterone antagonist: N/A Statin lipitor 40 mg daily Additional Medications: Eye drops Restoril 30 mg as needed before bed Tele/EKG (Images/strips reviewed) Sr w/ 1st degree HB Device therapy: N/A Patient remained stable for discharge home with follow up. Aggressive risk factor modification as appropriate. -- BP Goal < 130/80 with nonpharmacologic and medical therapy -- LDL goal 50% reduction AND level < 55-70 mg/dL using max tolerated statin +/- adjuvant therapy -- HbA1C < 7% -- Healthy diet and exercise +/- weight loss if appropriate. - Smoking and alcohol abstinence/cessation, if applicable Follow up/Disposition: Cardiac rehab, referral placed With Cardiology as scheduled or sooner if needed. Check blood pressure daily and record the results. Please bring the results to your next appointment for review. Contact the office if you have blood pressure readings consistently greater than 140/85. Check your weight daily and record the results. Bring the results to your next appointment. If you have weight gain of greater than 3 lbs in 24 hours or worsening shortness of breath, abdominal distension or lower extremity swelling, please contact our office. If you have worsening chest pain, shortness of breath or syncope, please report to the Emergency room or call 911. Education/Counseling: We have discussed the following pharmacological measures during this visit: Reviewed all medications. Patient is able to get medications with out issues Reviewed any possible side effects of medications. Take ALL medications as prescribed. We discussed the following non-pharmacological measures during this visit: Diet: Eat a low-salt (sodium) diet Read food labels for sodium content. Mediterranean Diet Weight: Check for swelling in your feet, ankles, legs, and stomach. Weigh yourself each morning before breakfast. Compare If your weight goes up or down 4lbs from your dry weight, call your dermatology physician assistant Exercise: Be active and exercise every day. Smoking and alcohol abstinence/cessation, if applicable Heart Failure Education Booklet: information given previously. Please Visit [email or web address] Questions or Concerns after you go home? Please call Nurse foundation coordinator line at . I spent a total of >30 minutes on the date of the service which included preparing to see the patient, [id number] patient care, completing clinical documentation, performing a medically appropriate examination, counseling and educating the patient/family/caregiver, ordering medications, tests,or procedures, independently interpreting results (not separately reported), and communicating results to the patient/family/caregiver. Deng Koenig APRN.CNP [facility] NoteHNO ID: [id number] Author: DENG KOENIG APRN.CNP Service: ? Author Type: Nurse Practitioner Type: Progress Notes Filed: 11/10/2024 10:24 Note Text: Heart [facility] V[facility] Department of Cardiovascular Medicine SECTION OF INTERVENTIONAL CARDIOLOGY OUTPATIENT VISIT DATE November 10, 2024 OUTPATIENT VISIT TYPE ESTABLISHED FOLLOW UP [employer]: Dr. Lindo Chief Complaint: Patient here for cardiac follow up evaluation History of Present Illness: Patient is a 84 year old female who presents for follow up visit today. Past medical history includes: CAD (cath in 2018 showing moderate RCA and LAD disease, RCA iFR 0.96 and LAD iFR was abnormal at 0.84 (patient opted not to proceed with PCI of mid LAD, hence being medically managed) Severe aortic stenosis 10/30/2024 s/p TAVR 23 S3 and Stenting of the R-NURSE RESEARCH with a 8.0 x 39 mm [place] VBX Balloon expandable stent, RLE Arterial Doppler and PVR completed, right NURSE RESEARCH stent patent HFpEF (EF 64%) HTN HLD Glaucoma (left eye completely blind) Patient underwent TAVR 23 S3 and Stenting of the R-NURSE RESEARCH with a 8.0 x 39 mm [place] VBX Balloon expandable stent on 10/30/[address] Wells. RLE Arterial Doppler and PVR completed, right NURSE RESEARCH stent patent. Patient presents today for hospital follow-up visit. Patient states she is doing very well following her procedure. She denies any chest pain, shortness of breath, or groin pain. Her only complaint is fatigue and decreased energy levels. She is interested in starting cardiac rehab, a referral has been placed. Her incision sites are healing appropriately without redness, swelling, or drainage noted. ECG completed and NSR with baseline 1st degree HB. Patient to follow-up next month with ECHO, Groin US and PVR's. Denies chest pain, shortness of breath, dyspnea on exertion, orthopnea, palpitations, lightheadedness, syncope, leg swelling, and wheezing PAST CARDIAC HISTORY: See HPI PAST MEDICAL HISTORY Diagnosis Date Aortic valve stenosis CAD (coronary artery disease) Disease PROBLEM SLEEPING Essential hypertension Glaucoma HTN (hypertension) Mixed hyperlipidemia PAST SURGICAL HISTORY Procedure Laterality Date PROCEDURE 1999, 2006 BOTH HIPS REPLACED PROCEDURE 10/28/2009 LASER OU FOR GLAUCOMA REMV CATARACT EXTRACAP,INSERT LENS Left 04/20/2024 Social History Tobacco Use Smoking status: Never Smokeless tobacco: Never Vaping Use Vaping status: Never Used Substance Use Topics Alcohol use: Never Drug use: Never FAMILY HISTORY Problem Relation Age of Onset Glaucoma Father Diabetes Father Coronary Artery Disease Sister Colon Cancer Maternal Grandmother Stroke Maternal Grandfather Blindness Other GREAT AUNT Colon Cancer Other ALLERGIES No Known Allergies MEDICATIONS: Current Outpatient Medications Medication Sig clopidogrel (PLAVIX) 75 mg tablet Take 1 tablet by mouth once daily. atorvastatin (LIPITOR) 40 mg tablet Take 1 tablet by mouth daily at bedtime. brimonidine (ALPHAGAN) 0.2 % ophthalmic solution Use 2 Drops in the left eye two times a day. latanoprost (XALATAN) 0.005 % ophthalmic solution Use 1 Drop in the left eye daily at bedtime. mydmeth-xgbfvavfz-ervekdld,PF (NEA-DLKO-SMM) 0.5-0.15-2 % ophthalmic solution Use 1 Drop in the left eye two times a day. valsartan (DIOVAN) 160 mg tablet Take 0.5 tablets by mouth once daily. carvedilol (COREG) 12.5 mg tablet Take 1 tablet by mouth twice daily with meals. aspirin, enteric coated (ASPIRIN, ENTERIC COATED) 81 mg EC tablet Take 81 mg by mouth once daily. temazepam (RESTORIL) 30 mg cap Take 30 mg by mouth at bedtime as needed. No current facility-administered medications for this visit. REVIEW OF SYSTEMS: PAIN ASSESSMENT: Denies complaints of acute or chronic pain GENERAL: Denies fevers, chills, night sweats, weight gain or loss HEENT: Denies changes in vision, hearing, nose bleeds, or bleeding gums NECK: Denies neck pain, stiffness, or swelling, or swollen lymph nodes RESPIRATORY: See HPI CARDIOVASCULAR: See HPI GI: Denies difficulty swallowing, nausea, vomiting, diarrhea, constipation, or melena : Denies frequency, urgency, or burning, and hematuria MUSCULOSKELETAL: Denies joint pain, swelling, or stiffness SKIN: Denies rashes, lesions, or tears PSYCH: Denies sleep disturbance, mood disorder, or recent psychosocial stressors HEMATOLOGY/LYMPHOLOGY: Denies prolonged bleeding or easy bruising ENDOCRINE: Denies heat or cold intolerance, polydipsia or polyphagia NEURO: Denies syncope, seizures, or numbness or tingling of hands or feet PHYSICAL EXAMINATION: BP 133/55 Pulse 62 Resp 16 Wt 164 lb (74.4kg) SpO2 97% General: No acute distress Skin: warm, dry, and intact; no rashes or lesions noted Neck: No JVD Lungs: Breath sounds clear, respiratory effort normal Heart: Regular rhythm, no murmur, no edema noted Abdom (more content not included)...[facility]01-05-2025 NoteHNO ID: [id number] Author: CHALINO STOUT, Brittani Service: Pharmacy Author Type: Supervisor [employer] Type: Plan of Care Filed: 11/01/2024 11:24 Note Text: PHARMACY BEDSIDE DELIVERY SERVICE Patient Name: Gogo Ware The marked outpatient medications were Filled at: [facility] and delivered to the patient's bedside to patient Medication List START taking these medications cephALEXin 500 mg capsule Commonly known as: KEFLEX Take 1 capsule by mouth every 12 hours for 6 doses. Delivered to patient clopidogrel 75 mg tablet Commonly known as: PLAVIX Take 1 tablet by mouth once daily. Delivered to patient CONTINUE taking these medications aspirin, enteric coated 81 mg EC tablet Commonly known as: ASPIRIN, ENTERIC COATED atorvastatin 40 mg tablet Commonly known as: LIPITOR Take 1 tablet by mouth daily at bedtime. brimonidine 0.2 % ophthalmic solution Commonly known as: ALPHAGAN Use 2 Drops in the left eye two times a day. carvedilol 12.5 mg tablet Commonly known as: COREG Take 1 tablet by mouth twice daily with meals. latanoprost 0.005 % ophthalmic solution Commonly known as: XALATAN Use 1 Drop in the left eye daily at bedtime. temazepam 30 mg Cap Commonly known as: RESTORIL bljokjq-oemchmuft-gpzcktqy,PF 0.5-0.15-2 % ophthalmic solution Commonly known as: IUB-KGFA-GAI Use 1 Drop in the left eye two times a day. valsartan 160 mg tablet Commonly known as: DIOVAN Take 0.5 tablets by mouth once daily. You might also be taking other medications not listed above. If you have questions about any of your other medications, talk to the person who prescribed them or your Primary Care Provider. Chalino Dago November 01, 2024 9:46 [facility]01-05-2025 NoteHNO ID: [id number] Author: HELEN FORTE MD Service: Cardiovascular Medicine Author Type: Fellow Type: Progress Notes Filed: 11/01/2024 08:50 Note Text: INTERVENTIONAL CARDIOLOGY Post Intervention Progress Note PROCEDURE: Transfemoral TAVR with a 23 mm Newell Jerry S3 valve, stenting of R NURSE RESEARCH with 8.0 x 39 mm [place] VBX balloon expandable stent SUBJECTIVE: - No events overnight on telemetry. - No CP or SOB. - No issues with R NURSE RESEARCH access sites. - comfortable this AM; eager to go home. Understands plan for r/up with repeat arterial dopplers Current Inpatient Medications Current Facility-Administered Medications Medication Dose Route Frequency NaCl 0.9% iv flush bag 20 mL INTRAVENOUS PRN cephALEXin 500 mg cap(s) (KEFLEX) 500 mg ORAL q 12 H aspirin 81 mg chewable tab(s) 81 mg ORAL DAILY acetaminophen 650 mg tab(s) (TYLENOL) 650 mg ORAL q 6 H PRN Or acetaminophen 650 mg CUP (TYLENOL) 650 mg ORAL/FEEDING TUBE q 6 H PRN melatonin 3 mg tab(s) 3 mg ORAL AT BEDTIME PRN sodium chloride 0.9 % (flush) 2-10 mL (BD POSIFLUSH) 2-10 mL INTRAVENOUS DIRECTED PRN And perflutren lipid microspheres 1.1 mg/mL 1.3 mL injection (DEFINITY) 1.3 mL INTRAVENOUS DIRECTED PRN clopidogrel 75 mg tab(s) (PLAVIX) 75 mg ORAL DAILY temazepam 30 mg cap(s) (RESTORIL) 30 mg ORAL AT BEDTIME PRN carvedilol 12.5 mg tab(s) (COREG) 12.5 mg ORAL BID w MEALS valsartan 80 mg tab(s) (DIOVAN) 80 mg ORAL DAILY PHYSICAL EXAM BP 187/79 Pulse 68 Temp 36.4 ?C (97.5 ?F) (Oral) Resp 16 Ht 165.1 cm (5' 5") Wt 75.4 kg (166 lb 3.6 oz) SpO2 98% BMI 27.66 kg/m? General: Patient is alert and oriented x3. Laying in bed in no acute distress. Cardiovascular: Regular rate and normal rhythm. No murmurs, rubs or gallops appreciated. JVD none Pulmonary: Regular rate and effort of breathing. No use of accessory muscles noted. Abdominal: Soft, non-tender, non-distended. MSK: Bilateral lower extremities warm and well perfused. No extremity edema noted. Groin access site clean and dry, without hematoma LABS: Recent Labs 10/31/24 0025 10/31/24 0024 10/29/24 0937 WBC 6.53 -- 4.88 HB 10.3* -- 12.2 HCT 30.5* -- 37.4 PLT 112* -- 161 NA -- 139 141 K -- 3.8 4.3 CHLOR -- 106 106 CO2 -- 21* 25 BUN -- 15 20 CREAT -- 0.71 0.84 GLUC -- 117* 114* NT Pro BNP Date Value Ref Range Status 10/31/2024 1,611 (H) <450 pg/mL Final Echo: Last Echocardiogram ECHO Collected: 10/30/2024 10:18 AM (Final result) Narrative: Echocardiography Report: Transthoracic Echo [facility] Bed[facility] Date of service: 10/30/2024 10:18:57 AM Ordering physician: ODILON WELLS Indication: S/p TAVR Technologist: Lesa Mar and Lalitha Euceda Interpreting physician: Charla Peace MD PATIENT: Name: MRS. GOGO WARE : 1940 Age: 84 years Gender: F History of hypertension, dyslipidemia, coronary artery disease and valvular heart disease. Previous cardiovascular interventions: TAVR (10/2024) Primary rhythm: sinus. Height: 165.10 cm BSA: 1.86 m? Weight: 75.30 kg BMI: 27.6 kg/m? Heart rate 56 bpm Blood pressure 178/77 mmHg Technically difficult exam due to post op and suboptimal positioning. Spectral Doppler was utilized to determine the flow velocities and pressure gradients reported in this exam. MEASUREMENTS: Value Indexed Normal LV stroke volume 64 ml (2D 4-ch.) LVOT stroke volume 115 ml 63 ml/m? LV end diastolic volume 105 ml (2D 4-ch.) 56.3 ml/m? 29<=EDVi<62 LV end systolic volume 41 ml (2D 4-ch.) 22.1 ml/m? Ejection Fraction 61 % (2D 4-ch.) EF > 54 FINDINGS: LEFT VENTRICLE The left ventricle is normal in size. Left ventricular systolic function is normal. Left ventricular diastolic function was not evaluated due to Limited Echo. RIGHT VENTRICLE The right ventricle is normal in size. Right ventricular systolic function is normal. Estimated right ventricular systolic pressure is not reported due to an insufficient tricuspid regurgitation signal. Estimated right atrial pressure is 3 mmHg based on IVC assessment. RIGHT ATRIUM Inferior Vena Cava: The inferior vena cava appears normal measuring 1.7 cm. The vessel decreases greater than 50 percent with inspiration. MITRAL VALVE There is mild mitral annular calcification observed posterior. There is trace (trace - 1+) mitral valve regurgitation. There is mild thickening. TRICUSPID VALVE There is trace (trace - 1+) tricuspid valve regurgitation. There is no thickening. AORTIC VALVE Newell S3 Ultra prosthetic valve size #23. There is no aortic valve regurgitation. S/P transcatheter aortic valve replacement. The peak gradient is 19 mmHg (peak velocity = 217.0 cm/s). The mean gradient is 11 mmHg. The LVOT mean velocity is 75.4 cm/s. The LVOT diameter is 2.3 cm. The aortic VTI is 53.3 cm. The mean velocity in the aortic valve is 155.0 cm/s. The dimensio (more content not included)...[facility]01-04-2025 NoteHNO ID: [id number] Author: AZUL ELIZONDO MD Service: Cardiovascular Medicine Author Type: Physician Type: Plan of Care Filed: 10/31/2024 13:56 Note Text: INTERVENTIONAL CARDIOLOGY Post Intervention Progress Note PROCEDURE: Transfemoral TAVR with a 23 mm Newell Jerry S3 valve, stenting of R NURSE RESEARCH with 8.0 x 39 mm [place] VBX balloon expandable stent SUBJECTIVE: - No events overnight on telemetry. - No CP or SOB. - No issues with access sites. - Does not have a ride home today -arterial doppler w/o severe stenosis, no pseudoaneurysm. Normal AVRSHA in right and left legs Current Inpatient Medications Current Facility-Administered Medications Medication Dose Route Frequency NaCl 0.9% iv flush bag 20 mL INTRAVENOUS PRN cephALEXin 500 mg cap(s) (KEFLEX) 500 mg ORAL q 12 H aspirin 81 mg chewable tab(s) 81 mg ORAL DAILY acetaminophen 650 mg tab(s) (TYLENOL) 650 mg ORAL q 6 H PRN Or acetaminophen 650 mg CUP (TYLENOL) 650 mg ORAL/FEEDING TUBE q 6 H PRN melatonin 3 mg tab(s) 3 mg ORAL AT BEDTIME PRN nitroglycerin 50 mg in D5W 250 mL 5-200 mcg/min INTRAVENOUS CONTINUOUS sodium chloride 0.9 % (flush) 2-10 mL (BD POSIFLUSH) 2-10 mL INTRAVENOUS DIRECTED PRN And perflutren lipid microspheres 1.1 mg/mL 1.3 mL injection (DEFINITY) 1.3 mL INTRAVENOUS DIRECTED PRN lactated ringers iv infusion 100 mL/hr INTRAVENOUS CONTINUOUS fentaNYL 50 mcg/mL 25-50 mcg injection (SUBLIMAZE) 25-50 mcg INTRAVENOUS q 10 MIN PRN HYDROmorphone 0.5 mg injection (DILAUDID) 0.5 mg INTRAVENOUS q 10 MIN PRN clopidogrel 75 mg tab(s) (PLAVIX) 75 mg ORAL DAILY valsartan 80 mg tab(s) (DIOVAN) 80 mg ORAL DAILY carvedilol 12.5 mg tab(s) (COREG) 12.5 mg ORAL BID w MEALS temazepam 30 mg cap(s) (RESTORIL) 30 mg ORAL AT BEDTIME PRN PHYSICAL EXAM BP 178/79 Pulse 84 Temp 36.7 ?C (98.1 ?F) Resp 14 Ht 165.1 cm (5' 5") Wt 75.4 kg (166 lb 4.8 oz) SpO2 97% BMI 27.67 kg/m? General: Patient is alert and oriented x3. Laying in bed in no acute distress. Cardiovascular: Regular rate and normal rhythm. No murmurs, rubs or gallops appreciated. JVD none Pulmonary: Regular rate and effort of breathing. No use of accessory muscles noted. Abdominal: Soft, non-tender, non-distended. MSK: Bilateral lower extremities warm and well perfused. No extremity edema noted. Groin access site clean and dry, without hematoma LABS: Recent Labs 10/31/24 0025 10/31/24 0024 10/29/24 0937 WBC 6.53 -- 4.88 HB 10.3* -- 12.2 HCT 30.5* -- 37.4 PLT 112* -- 161 NA -- 139 141 K -- 3.8 4.3 CHLOR -- 106 106 CO2 -- 21* 25 BUN -- 15 20 CREAT -- 0.71 0.84 GLUC -- 117* 114* NT Pro BNP Date Value Ref Range Status 10/31/2024 1,611 (H) <450 pg/mL Final EKG: DC 202 (Baseline 212), QRS 98 (baseline 92) Echo: Pk/mn 15/09, no AI Last Echocardiogram ECHO Collected: 10/30/2024 10:18 AM (Final result) Narrative: Echocardiography Report: Transthoracic Echo [facility] Bedside Date of service: 10/30/2024 10:18:57 AM Ordering physician: ODILON WELLS Indication: S/p TAVR Technologist: Lesa Euceda Interpreting physician: Charla Peace MD PATIENT: Name: MRS. GOGO WARE : 1940 Age: 84 years Gender: F History of hypertension, dyslipidemia, coronary artery disease and valvular heart disease. Previous cardiovascular interventions: TAVR (10/2024) Primary rhythm: sinus. Height: 165.10 cm BSA: 1.86 m? Weight: 75.30 kg BMI: 27.6 kg/m? Heart rate 56 bpm Blood pressure 178/77 mmHg Technically difficult exam due to post op and suboptimal positioning. Spectral Doppler was utilized to determine the flow velocities and pressure gradients reported in this exam. MEASUREMENTS: Value Indexed Normal LV stroke volume 64 ml (2D 4-ch.) LVOT stroke volume 115 ml 63 ml/m? LV end diastolic volume 105 ml (2D 4-ch.) 56.3 ml/m? 29<=EDVi<62 LV end systolic volume 41 ml (2D 4-ch.) 22.1 ml/m? Ejection Fraction 61 % (2D 4-ch.) EF > 54 FINDINGS: LEFT VENTRICLE The left ventricle is normal in size. Left ventricular systolic function is normal. Left ventricular diastolic function was not evaluated due to Limited Echo. RIGHT VENTRICLE The right ventricle is normal in size. Right ventricular systolic function is normal. Estimated right ventricular systolic pressure is not reported due to an insufficient tricuspid regurgitation signal. Estimated right atrial pressure is 3 mmHg based on IVC assessment. RIGHT ATRIUM Inferior Vena Cava: The inferior vena cava appears normal measuring 1.7 cm. The vessel decreases greater than 50 percent with inspiration. MITRAL VALVE There is mild mitral annular calcification observed posterior. There is trace (trace - 1+) mitral valve regurgitation. There is mild thickening. TRICUSPID VALVE There is trace (trace - 1+) tricuspid valve regurgitation. There is no thickening. A (more content not included)...[facility]01-03-2025 NoteHNO ID: [id number] Author: CARLOS LOVE MD Service: Cardiovascular Medicine Author Type: Fellow Type: Plan of Care Filed: 10/30/2024 10:15 Note Text: Plan of care note: Gogo Ware is a 84 year old female [id number] with severe now s/p transfemoral TAVR with a #23 mm Newell Jerry S3 valve Stenting of RCFA with a 8.0 x 39 mm [place] VBX balloon [ deployed at 8 ATMs] expandable stent post dilated the proximal segment with a 8.0 x 40 mm Nip Wrapper balloon. Access: 5/6 RRA > TR band, 14Fr superior RFA > perclose x 3, 7Fr inferior AND 6Fr RFV > manual compression NT Pro BNP Date Value Ref Range Status 10/29/2024 1,804 (H) <450 pg/mL Final ECG: pending Post-procedure TTE: pending Antiplatelet: ASA/Plavix Anticoagulation: none Med changes: None Abx: Keflex x 5 days Issues: -F/up TTE -Monitor groin Dispo: - Ordered plavix load (today) and MD (starting tomorrow) - will need DAPT for at least 6 months - will need Arterial Doppler and PVR in house [ordered], 1 mo, 3 mo,6 mo and 12 months after procedure. -Anticipate discharge tomorrow morning [x] post orders [x] AC Plan [ ] Post EKG [x] POC Note [ ] Post Email [ ] Syngo Report Carlos Love MD PGY 8 Pager: [phone] Interventional [employer] Law Clerk Heart,Vascular and Thoracic [facility] For communication after 5 pm on weekdays and after 12 pm on weekends, please page the following: - Clinical Cardiology patients on all floors: page [phone] - Other Cardiology patients on J5 and J6: page [phone] - Other Cardiology patients on J7 and J8: page [phone] 10-29-20[facility] Instructions* Patient Instructions* Kacy Jimenez APRN.NAPPER GRINDER - 10/29/2024 1:51 PM EST Instructed to go to Desk J1-1 REGISTRATION TODAY. Report to Desk J1-2 at 5:30 AM on Monday 10/30. Instructions: The Evening Before Procedure. Nothing to eat or drink after midnight starting on SATURDAY Bathe or take a shower. Use the antibacterial soap. Hibiclens as provided. Mouth care: After brushing your teeth, gargle with the Listerine Provided. Instructions: The Morning of your Procedure. Okay for to take the following medications with sips of water in AM: Aspirin, Carvedilol Candy/mints and tobacco products are NOT permitted the morning of surgery. Bathe or take a shower. Use the antibacterial soap. Hibiclens as provided. Mouth care: After brushing your teeth, gargle with the Listerine Provided. Additional information for the DAY OF SURGERY: - Hearing aides, glasses and dentures may be worn on the morning of surgery. - Wear your hair loosely. Do not use clips, pins or bands that bind your hair. Do not use hair spray. If you wear a wig or hairpiece, you will remove it before surgery. We will give you a head cover before you go into surgery. - No make-up or nail faroese. If you have nail tips/wraps/gels, you will need to remove them from atleast one finger on each hand. This lets us keep track of your oxygen level during surgery. - No jewelry, including watches, wedding rings and any body jewelry. Questions about preparing for your procedure? Call your doctors office: Dr. Sly Jesus [phone] Dr. Milagros Lr [phone] Dr. Jim Aguilera [phone] Dr. Odilon Wells [phone] Activity Restrictions post procedure. Do not strain during bowel movements for 3 to 4 days after the procedure. This helps prevent bleeding from the catheter-insertion site. Do not lift anything that weighs more than 10 pounds or push or pull heavy objects for the first 10to 14 days after the procedure. Do not do any strenuous activities for 5 days after the procedure. This includes most sports, such as jogging, golfing, playing tennis and bowling. You may climb stairs if needed, but walk up and down the stairs more slowly than usual. Gradually increase your activity level during the week after the procedure, when you should be backto your normal routine. Do not have sexual intercourse. Ask your doctor when it is safe to resume sexual activity. Do not drive until you get the OK from your doctor. Ask your doctor at your follow-up visit about taking part in Stage II cardiac rehabilitation. Interventional Discharge Readiness Tool Your Anticipated Discharge Needs: Same Day (Home if live in distance less than 2 hours. If greater than 2 [facility] - Evening after 5PM -Must have an adult (persons >18 years old) with you overnight -Follow up in OPD the next day Next Day -Transportation/ride by 9 AM - Recommended that you have an adult (persons >18 years old) with you overnight -Follow up in OPD with in 1 week Patient/Family/Caregiver needs or concerns for discharge planning: Cardiac Rehab is a supervised program designed for patients who have certain heart procedures. You will receive a referral prior to discharge so that you can start the outpatient cardiac rehab program 2-3 weeks after you leave the hospital. Cardiac rehab will help you get stronger so you can returnto your routine activities, teach you about lifestyle changes, and nutrition by education and exercise. Completing your cardiac rehab program can greatly help your recovery and greatly reduce your risk of future heart problems. For [facility] Cardiac Rehab call [phone] to schedule after you are home from your procedure. If you do not receive your referral, please call your dermatology physician assistant's office for the order. Kacy Jimenez APRN.CNS documented in this encounter[facility] Center[facility] History of Present illness Narrative* Kacy Jimenez APRN.CNS - 10/29/2024 1:00 PM EST Images from the original note were not included. [facility] Department of Cardiovascular Medicine SECTION OF INTERVENTIONAL CARDIOLOGY OUTPATIENT VISIT DATE October 29, 2024 OUTPATIENT VISIT TYPE ESTABLISHED FOLLOW UP [employer]als: Dr. Lindo Chief Complaint: Patient here for cardiac follow up evaluation History of Present Illness: Patient is a 84 year old female who presents for follow up visit today. She was last seen by Dr. Wells on 08/31/2024. She is here today with her friend. Since last vist the patient has not had any change in her symptoms, which are very little. She mostly hs noticed a change in her energy. Denies: chest pain, shortness of breath, PND, lightheadedness, syncope, and leg swelling CARDIOVASCULAR MEDICINE TESTING: Electrocardiogram: NSR with first degree AVB Vent. rate 60 BPM DC interval 212 ms QRS duration 92 ms QT/QTcB 420/420 ms P-R-T axes 85 12 77 Chest X-ray: RESULT: Lines, tubes, and devices: None. Lungs and pleura: No consolidation. Bibasilar atelectasis. No pleural effusion. No pneumothorax. Cardiomediastinal silhouette: Stable enlarged cardiomediastinal silhouette. Atherosclerotic calcifications of the thoracic aorta. Blunting of the cardiophrenic angle, likely prominent epicardial fat pad. Bones and soft tissues: Degenerative changes are present within the thoracic spine. Laboratory Testing: Latest Ref Rng 10/29/2024 WBC 3.70 - 11.00 k/uL 4.88 RBC 3.90 - 5.20 m/uL 4.00 Hemoglobin 11.5 - 15.5 g/dL 12.2 Hematocrit 36.0 - 46.0 % 37.4 MCV 80.0 - 100.0 fL 93.5 MCH 26.0 - 34.0 pg 30.5 MCHC 30.5 - 36.0 g/dL 32.6 RDW-CV 11.5 - 15.0 % 12.8 Platelet Count 150 - 400 k/uL 161 MPV 9.0 - 12.7 fL 10.8 Neut% % 58.2 Abs Neut (ANC) 1.45 - 7.50 k/uL 2.84 Lymph% % 29.7 Abs Lymph 1.00 - 4.00 k/uL 1.45 Stanly% % 9.0 Abs Stanly <0.87 k/uL 0.44 Eosin% % 2.7 Abs Eosin <0.46 k/uL 0.13 Baso% % 0.4 Abs Baso <0.11 k/uL <0.03 Immature Gran % % 0.0 IMMATURE GRANS (ABS) <0.10 k/uL <0.03 NRBC /100 WBC 0.0 Absolute nRBC <0.01 k/uL <0.01 DTYPE Auto Protein, Total 6.3 - 8.0 g/dL 6.8 Albumin 3.9 - 4.9 g/dL 4.2 Calcium 8.5 - 10.2 mg/dL 9.7 Bilirubin, Total 0.2 - 1.3 mg/dL 0.4 Alkaline Phosphatase 34 - 123 U/L 65 AST 13 - 35 U/L 38 (H) ALT 7 - 38 U/L 9 Glucose 74 - 99 mg/dL 114 (H) BUN 7 - 21 mg/dL 20 Creatinine 0.58 - 0.96 mg/dL 0.84 Sodium 136 - 144 mmol/L 141 Potassium 3.7 - 5.1 mmol/L 4.3 Chloride 98 - 107 mmol/L 106 CO2 22 - 30 mmol/L 25 Anion Gap 8 - 15 mmol/L 10 eGFR >=60 mL/min/1.73m 68 PT Sec 9.7 - 13.0 sec 11.4 PT INR 0.9 - 1.3 1.1 NT Pro BNP <450 pg/mL 1,804 (H) Legend: (H) High REVIEW OF SYSTEMS: HEENT: Denies recent severe headaches, visual changes, difficulty swallowing. 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 GENITOURINARY: Denies hematuria or dysuria. MUSCULOSKELETAL: Denies claudication or muscle myalgias. NEUROLOGIC: Denies unilateral paralysis, slurred speech. SKIN: Denies skin ulcers or lesions. HEMATOLOGICAL: Denies gingival bleeding, or prolonged epistaxis. ENDOCRINE:Denies heat or cold intolerance, excessive thirst or urination. All Other Remaining ROS negative. PHYSICAL EXAM: BP 138/70 Pulse 65 Ht 165.1 cm (5' 5") Wt 73.9 kg (163 lb) SpO2 96% BMI 27.12 kg/m General: Normal exam, and accompanied by friend Neck : Neck veins are not distended Cardiac: Rhythm: regular rate and rhythm, Rate: normal, Murmur 1:3/6, systolic, harsh, LSB, radiates to diffuse, S1: normal intensity, S2: normal intensity Chest: Chest clear to percussion and auscultation Abdomen: Normal, Bowel Sounds: Present Extremities: normal exam of the extremities, no edema present Pulses: posterior tibial pulses present both Skin: No clubbing, no cyanosis. Neuro: Oriented to person, place and time, alert, cooperative, gait coordinated. HISTORY Gogo Ware is an 84 year old female with pmhx of: CAD (cath in 2018 showing moderate RCA and LAD disease, RCA iFR 0.96 and LAD iFR was abnormal at 0.84 (patient opted not to proceed with PCI of mid LAD, hence being medically managed)) -Severe aortic stenosis -HFpEF (EF 64%) -HTN, HLD -Glaucoma (left eye completely blind) ASSESSMENT: Gogo Ware has severe, aortic valve stenosis without many symptoms except for a mild decrease in energy, but her ECHO shows significant and her BNP is also elevated. NYHA FC II/III. Beta Madhu: Coreg 12.5 mg BID Dental clearance: completed and scanned Surgeon noted completed: 09/09 PPM: N/A Anticoagulation: N/A Contrast Allergy: no KCCQ-12: 09/09 15 Ft W: 09/09 IMPRESSION/PLAN: Gogo Ware is scheduled for TF- TAVR on Monday 10/[address] Wells Instructed to go to Desk J1-1 REGISTRATION TODAY. Report to Desk J1-2 at 5:30 AM on Monday 10/30. Instructions: The Evening Before Procedure. Nothing to eat or drink after midnight starting on SATURDAY Bathe or take a shower. Use the antibacterial soap. Hibiclens as provided. Mouth care: After brushing your teeth, gargle with the Listerine Provided. Instructions: The Morning of your Procedure. Okay for to take the following medications with sips of water in AM: Aspirin, Carvedilol Candy/mints and tobacco products are NOT permitted the morning of surgery. Bathe or take a shower. Use the antibacterial soap. Hibiclens as provided. Mouth care: After brushing your teeth, gargle with the Listerine Provided. Additional information for the DAY OF SURGERY: - Hearing aides, glasses and dentures may be worn on the morning of surgery. - Wear your hair loosely. Do not use clips, pins or bands that bind your hair. Do not use hair spray. If you wear a wig or hairpiece, you will remove it before surgery. We will give you a head cover before you go into surgery. - No make-up or nail faroese. If you have nail tips/wraps/gels, you will need to remove them from atleast one finger on each hand. This lets us keep track of your oxygen level during surgery. - No jewelry, including watches, wedding rings and any body jewelry. Questions about preparing for your procedure? Call your doctors office: Dr. Sly Jesus [phone] Dr. Milagros Lr [phone] Dr. Jim Aguilera [phone] Dr. Odilon Wells [phone] Activity Restrictions post procedure. Do not strain during bowel movements for 3 to 4 days after the procedure. This helps prevent bleeding from the catheter-insertion site. Do not lift anything that weighs more than 10 pounds or push or pull heavy objects for the first 10to 14 days after the procedure. Do not do any strenuous activities for 5 days after the procedure. This includes most sports, such as jogging, golfing, playing tennis and bowling. You may climb stairs if needed, but walk up and down the stairs more slowly than usual. Gradually increase your activity level during the week after the procedure, when you should be backto your normal routine. Do not have sexual intercourse. Ask your doctor when it is safe to resume sexual activity. Do not drive until you get the OK from your doctor. Ask your doctor at your follow-up visit about taking part in Stage II cardiac rehabilitation. Interventional Discharge Readiness Tool Your Anticipated Discharge Needs: Same Day (Home if live in distance less than 2 hours. If greater than 2 hours exception would [facility]) - Evening after 5PM -Must have an adult (persons >18 years old) with you overnight -Follow up in OPD the next day Next Day -Transportation/ride by 9 AM - Recommended that you have an adult (persons >18 years old) with you overnight -Follow up in OPD with in 1 week Patient/Family/Caregiver needs or concerns for discharge planning: __[facility] this [facility]. Her friend said she is willing to spend the night with her at HOME, if she can be discharged the same day. Cardiac Rehab is a supervised program designed for patients who have certain heart procedures. You will receive a referral prior to discharge so that you can start the outpatient cardiac rehab program 2-3 weeks after you leave the hospital. Cardiac rehab will help you get stronger so you can returnto your routine activities, teach you about lifestyle changes, and nutrition by education and exercise. Completing your cardiac rehab program can greatly help your recovery and greatly reduce your risk of future heart problems. For [facility] Cardiac Rehab call [phone] to schedule after you are home from your procedure. If you do not receive your referral, please call your dermatology physician assistant's office for the order. I spent a total of 40- minutes on the date of the service which included preparing to see the patient, [id number] patient care, completing clinical documentation, performing a medically appropriateexamination, ordering medications, tests, or procedures, independently interpreting results (not sep arately reported), and communicating results to the patient/family/caregiver. Kacy Jimenez APRN.JERMAIN documented in this encounterFairfield [facility] Center01-02-2025 NoteHNO ID: [id number] Author: KACY JIMENEZ APRN.NAPPER GRINDER Service: ? Author Type: Nurse Specialist Type: Progress Notes Filed: 10/29/2024 14:10 Note Text: [facility] Department of Cardiovascular Medicine SECTION OF INTERVENTIONAL CARDIOLOGY OUTPATIENT VISIT DATE October 29, 2024 OUTPATIENT VISIT TYPE ESTABLISHED FOLLOW UP [employer]: Dr. Lindo Chief Complaint: Patient here for cardiac follow up evaluation History of Present Illness: Patient is a 84 year old female who presents for follow up visit today. She was last seen by Dr. Wells on 08/31/2024. She is here today with her friend. Since last vist the patient has not had any change in her symptoms, which are very little. She mostly hs noticed a change in her energy. Denies: chest pain, shortness of breath, PND, lightheadedness, syncope, and leg swelling CARDIOVASCULAR MEDICINE TESTING: Electrocardiogram: NSR with first degree AVB Vent. rate 60 BPM DC interval 212 ms QRS duration 92 ms QT/QTcB 420/420 ms P-R-T axes 85 12 77 Chest X-ray: RESULT: Lines, tubes, and devices: None. Lungs and pleura: No consolidation. Bibasilar atelectasis. No pleural effusion. No pneumothorax. Cardiomediastinal silhouette: Stable enlarged cardiomediastinal silhouette. Atherosclerotic calcifications of the thoracic aorta. Blunting of the cardiophrenic angle, likely prominent epicardial fat pad. Bones and soft tissues: Degenerative changes are present within the thoracic spine. Laboratory Testing: Latest Ref Rng 10/29/2024 WBC 3.70 - 11.00 k/uL 4.88 RBC 3.90 - 5.20 m/uL 4.00 Hemoglobin 11.5 - 15.5 g/dL 12.2 Hematocrit 36.0 - 46.0 % 37.4 MCV 80.0 - 100.0 fL 93.5 MCH 26.0 - 34.0 pg 30.5 MCHC 30.5 - 36.0 g/dL 32.6 RDW-CV 11.5 - 15.0 % 12.8 Platelet Count 150 - 400 k/uL 161 MPV 9.0 - 12.7 fL 10.8 Neut% % 58.2 Abs Neut (ANC) 1.45 - 7.50 k/uL 2.84 Lymph% % 29.7 Abs Lymph 1.00 - 4.00 k/uL 1.45 Stanly% % 9.0 Abs Stanly <0.87 k/uL 0.44 Eosin% % 2.7 Abs Eosin <0.46 k/uL 0.13 Baso% % 0.4 Abs Baso <0.11 k/uL <0.03 Immature Gran % % 0.0 IMMATURE GRANS (ABS) <0.10 k/uL <0.03 NRBC /100 WBC 0.0 Absolute nRBC <0.01 k/uL <0.01 DTYPE Auto Protein, Total 6.3 - 8.0 g/dL 6.8 Albumin 3.9 - 4.9 g/dL 4.2 Calcium 8.5 - 10.2 mg/dL 9.7 Bilirubin, Total 0.2 - 1.3 mg/dL 0.4 Alkaline Phosphatase 34 - 123 U/L 65 AST 13 - 35 U/L 38 (H) ALT 7 - 38 U/L 9 Glucose 74 - 99 mg/dL 114 (H) BUN 7 - 21 mg/dL 20 Creatinine 0.58 - 0.96 mg/dL 0.84 Sodium 136 - 144 mmol/L 141 Potassium 3.7 - 5.1 mmol/L 4.3 Chloride 98 - 107 mmol/L 106 CO2 22 - 30 mmol/L 25 Anion Gap 8 - 15 mmol/L 10 eGFR >=60 mL/min/1.73m? 68 PT Sec 9.7 - 13.0 sec 11.4 PT INR 0.9 - 1.3 1.1 NT Pro BNP <450 pg/mL 1,804 (H) Legend: (H) High REVIEW OF SYSTEMS: HEENT: Denies recent severe headaches, visual changes, difficulty swallowing. 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 GENITOURINARY: Denies hematuria or dysuria. MUSCULOSKELETAL: Denies claudication or muscle myalgias. NEUROLOGIC: Denies unilateral paralysis, slurred speech. SKIN: Denies skin ulcers or lesions. HEMATOLOGICAL: Denies gingival bleeding, or prolonged epistaxis. ENDOCRINE:Denies heat or cold intolerance, excessive thirst or urination. All Other Remaining ROS negative. PHYSICAL EXAM: BP 138/70 Pulse 65 Ht 165.1 cm (5' 5") Wt 73.9 kg (163 lb) SpO2 96% BMI 27.12 kg/m? General: Normal exam, and accompanied by friend Neck : Neck veins are not distended Cardiac: Rhythm: regular rate and rhythm, Rate: normal, Murmur 1:3/6, systolic, harsh, LSB, radiates to diffuse, S1: normal intensity, S2: normal intensity Chest: Chest clear to percussion and auscultation Abdomen: Normal, Bowel Sounds: Present Extremities: normal exam of the extremities, no edema present Pulses: posterior tibial pulses present both Skin: No clubbing, no cyanosis. Neuro: Oriented to person, place and time, alert, cooperative, gait coordinated. HISTORY Gogo Ware is an 84 year old female with pmhx of: CAD (cath in 2018 showing moderate RCA and LAD disease, RCA iFR 0.96 and LAD iFR was abnormal at 0.84 (patient opted not to proceed with PCI of mid LAD, hence being medically managed)) -Severe aortic stenosis -HFpEF (EF 64%) -HTN, HLD -Glaucoma (left eye completely blind) ASSESSMENT: Gogo Ware has severe, aortic valve stenosis without many symptoms except for a mild decrease in energy, but her ECHO shows significant and her BNP is also elevated. NYHA FC II/III. Beta Madhu: Coreg 12.5 mg BID Dental clearance: completed and scanned Surgeon noted completed: 09/09 PPM: N/A Anticoagulation: N/A Contrast Allergy: no KCCQ-12: 09/09 15 Ft W: 09/09 IMPRESSION/PLAN: Gogo Ware is scheduled for TF- TAVR on Monday 10/[address] Kamara (more content not included)...[facility]01-02-2025 NoteHNO ID: [id number] Author: CHARLES GARCIA MD Service: ? Author Type: Fellow Type: Progress Notes Filed: 10/29/2024 12:58 Note Text: Cardiothoracic Anesthesiology Preoperative Assessment Service Date: 10/29/2024 Service Time: 12:49 PM Primary Care Physician: Eh Huddleston MD Subjective Patient Entered Data: 10/29/2024 Cardiothoracic Surgery Pre-Op Questionnaire Previous anesthesia problems No Family history anesthesia problems No Blood consent No Esophageal history None Implanted devices No History difficult airway No Airway surgery No Ongoing pain issues No Heparin intolerance No Daily alcohol use No Illicit drug use No Scheduled procedure: TAVR Surgeon: Russell Scheduled date: 10/30/2024 HPI: 84y/o F scheduled for the above procedure due to severe (pk/mn 99/57, EFFIE 0.45 cm2). PMH: -CAD (cath in 2018 showing moderate RCA and LAD disease, RCA iFR 0.96 and LAD iFR was abnormal at 0.84 (patient opted not to proceed with PCI of mid LAD, hence being medically managed)) -HFpEF (EF 64%) -HTN - HLD -Glaucoma (left eye completely blind) - Discussed anesthetic plan, management, and perioperative medication management. Holding Valsartan Review no known heparin intolerance not taking anticoagulant/antiplatelet medication no non-cardiac IEDs present no known esophageal disorders blood transfusion consented - COVID-19 Immunization Status Overdue - Covid-19 Vaccine () Never done No completion, postpone, frequency change, or communication history exists for this topic. 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) Insomnia Glaucoma Nonrheumatic Aortic Valve Stenosis PAST MEDICAL HISTORY Diagnosis Date Aortic valve stenosis CAD (coronary artery disease) Disease PROBLEM SLEEPING Essential hypertension Glaucoma HTN (hypertension) Mixed hyperlipidemia PAST SURGICAL HISTORY Procedure Laterality Date PROCEDURE 1999, 2006 BOTH HIPS REPLACED PROCEDURE 10/28/2009 LASER OU FOR GLAUCOMA REMV CATARACT EXTRACAP,INSERT LENS Left 04/20/2024 FAMILY HISTORY Problem Relation Age of Onset Glaucoma Father Diabetes Father Coronary Artery Disease Sister Colon Cancer Maternal Grandmother Stroke Maternal Grandfather Blindness Other GREAT AUNT Colon Cancer Other Social History Tobacco Use Smoking status: Never Smokeless tobacco: Never Vaping Use Vaping status: Never Used Substance Use Topics Alcohol use: Never Drug use: Never Prior to Admission medications as of 09/03/24 1555 Medication Sig Last Dose Taking valsartan (DIOVAN) 160 mg tablet Take 0.5 tablets by mouth once daily. moxifloxacin (VIGAMOX) 0.5 % ophthalmic solution Use 1 Drop in the left eye four times daily. Patient not taking: Reported on 05/26/2024 carvedilol (COREG) 12.5 mg tablet Take 1 tablet by mouth twice daily with meals. atorvastatin (LIPITOR) 40 mg tablet Take 1 tablet by mouth once daily. brimonidine (ALPHAGAN) 0.2 % ophthalmic solution Use 2 Drops in both eyes twice daily. DORZOLAMIDE HCL/TIMOLOL MALEAT (DORZOLAMIDE-TIMOLOL OPHTHALMIC) Use 1 Drop in eyes twice daily. aspirin, enteric coated (ASPIRIN, ENTERIC COATED) 81 mg EC tablet Take 81 mg by mouth once daily. temazepam (RESTORIL) 30 mg cap Take 30 mg by mouth at bedtime as needed. latanoprost (XALATAN) 0.005 % ophthalmic solution Use 1 Drop in both eyes daily at bedtime. Medication Comments documented by Cari Roque COT on 01/05/2013 at 1354. PT STATES SHE USES ANOTHER DROP, GREEN TOP, AT NIGHT OU ALLERGIES No Known Allergies Objective Pain Assessment: Vitals: There were no vitals taken for this visit. Diagnostic tests reviewed for today's visit: Lab Value Units Date High Low HB 12.2 g/dL 10/29/2024 15.5 11.5 HCT 37.4 % 10/29/2024 46.0 36.0 WBC 4.88 k/uL 10/29/2024 11.00 3.70 PLT 161 k/uL 10/29/2024 400 150 NA 141 mmol/L 10/29/2024 144 136 K 4.3 mmol/L 10/29/2024 5.1 3.7 GLUC 114 mg/dL 10/29/2024 99 74 BUN 20 mg/dL 10/29/2024 21 7 CREAT 0.84 mg/dL 10/29/2024 0.96 0.58 CREAT 0.80 mg/dL 08/31/2024 1.4 0.7 PTSEC 11.4 sec 10/29/2024 13.0 9.7 INR 1.1 no uni* 10/29/2024 1.3 0.9 APTT No results within date range. ALT 9 U/L 10/29/2024 38 7 AST 38 U/L 10/29/2024 35 13 TBILI 0.4 mg/dL 10/29/2024 1.3 0.2 TSH No results within date range. Lab Value Units Date High Low HCGQT No results within date range. UHCG No results within date range. HCG, BODY* No results within date range. Lab Value Units Date High Low ABORHD No results within date range. ABSCREEN No results within date range. No results found for: "HBA1C" Recent Results (from the past 8760 hour(s)) XR CHEST 2V FRONTAL/LAT Collection Time: 10/29/24 9:21 AM Impression IMPRESSION: No acute radiographic a (more content not included)...[facility] 10-29-2024 History of Present illness Narrative* Charles Garcia MD - 10/29/2024 12:49 PM EST Cardiothoracic Anesthesiology Preoperative Assessment Service Date: 10/29/2024 Service Time: 12:49 PM Primary Care Physician: Eh Huddleston MD Subjective Patient Entered Data: 10/29/2024 Cardiothoracic Surgery Pre-Op Questionnaire Previous anesthesia problems No Family history anesthesia problems No Blood consent No Esophageal history None Implanted devices No History difficult airway No Airway surgery No Ongoing pain issues No Heparin intolerance No Daily alcohol use No Illicit drug use No Scheduled procedure: TAVR Surgeon: Russell Scheduled date: 10/30/2024 HPI: 84y/o F scheduled for the above procedure due to severe (pk/mn 99/57, EFFIE 0.45 cm2). PMH: -CAD (cath in 2018 showing moderate RCA and LAD disease, RCA iFR 0.96 and LAD iFR was abnormal at 0.84 (patient opted not to proceed with PCI of mid LAD, hence being medically managed)) -HFpEF (EF 64%) -HTN - HLD -Glaucoma (left eye completely blind) - Discussed anesthetic plan, management, and perioperative medication management. Holding Valsartan Review no known heparin intolerance not taking anticoagulant/antiplatelet medication no non-cardiac IEDs present no known esophageal disorders blood transfusion consented - COVID-19 Immunization Status Overdue - Covid-19 Vaccine ( season) Never done No completion, postpone, frequency change, or communication history exists for this topic. 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) Insomnia Glaucoma Nonrheumatic Aortic Valve Stenosis PAST MEDICAL HISTORY Diagnosis Date Aortic valve stenosis CAD (coronary artery disease) Disease PROBLEM SLEEPING Essential hypertension Glaucoma HTN (hypertension) Mixed hyperlipidemia PAST SURGICAL HISTORY Procedure Laterality Date PROCEDURE 1999, 2006 BOTH HIPS REPLACED PROCEDURE 10/28/2009 LASER OU FOR GLAUCOMA REMV CATARACT EXTRACAP,INSERT LENS Left 04/20/2024 FAMILY HISTORY Problem Relation Age of Onset Glaucoma Father Diabetes Father Coronary Artery Disease Sister Colon Cancer Maternal Grandmother Stroke Maternal Grandfather Blindness Other GREAT AUNT Colon Cancer Other Social History Tobacco Use Smoking status: Never Smokeless tobacco: Never Vaping Use Vaping status: Never Used Substance Use Topics Alcohol use: Never Drug use: Never Prior to Admission medications as of 09/03/24 1555 Medication Sig Last Dose Taking valsartan (DIOVAN) 160 mg tablet Take 0.5 tablets by mouth once daily. moxifloxacin (VIGAMOX) 0.5 % ophthalmic solution Use 1 Drop in the left eye four times daily. Patient not taking: Reported on 05/26/2024 carvedilol (COREG) 12.5 mg tablet Take 1 tablet by mouth twice daily with meals. atorvastatin (LIPITOR) 40 mg tablet Take 1 tablet by mouth once daily. brimonidine (ALPHAGAN) 0.2 % ophthalmic solution Use 2 Drops in both eyes twice daily. DORZOLAMIDE HCL/TIMOLOL MALEAT (DORZOLAMIDE-TIMOLOL OPHTHALMIC) Use 1 Drop in eyes twice daily. aspirin, enteric coated (ASPIRIN, ENTERIC COATED) 81 mg EC tablet Take 81 mg by mouth once daily. temazepam (RESTORIL) 30 mg cap Take 30 mg by mouth at bedtime as needed. latanoprost (XALATAN) 0.005 % ophthalmic solution Use 1 Drop in both eyes daily at bedtime. Medication Comments documented by Cari Roque COT on 01/05/2013 at 1354. PT STATES SHE USES ANOTHER DROP, GREEN TOP, AT NIGHT OU ALLERGIES No Known Allergies Objective Pain Assessment: Vitals: There were no vitals taken for this visit. Diagnostic tests reviewed for today's visit: Lab Value Units Date High Low HB 12.2 g/dL 10/29/2024 15.5 11.5 HCT 37.4 % 10/29/2024 46.0 36.0 WBC 4.88 k/uL 10/29/2024 11.00 3.70 PLT 161 k/uL 10/29/2024 400 150 NA 141 mmol/L 10/29/2024 144 136 K 4.3 mmol/L 10/29/2024 5.1 3.7 GLUC 114 mg/dL 10/29/2024 99 74 BUN 20 mg/dL 10/29/2024 21 7 CREAT 0.84 mg/dL 10/29/2024 0.96 0.58 CREAT 0.80 mg/dL 08/31/2024 1.4 0.7 PTSEC 11.4 sec 10/29/2024 13.0 9.7 INR 1.1 no uni* 10/29/2024 1.3 0.9 APTT No results within date range. ALT 9 U/L 10/29/2024 38 7 AST 38 U/L 10/29/2024 35 13 TBILI 0.4 mg/dL 10/29/2024 1.3 0.2 TSH No results within date range. Lab Value Units Date High Low HCGQT No results within date range. UHCG No results within date range. HCG, BODY* No results within date range. Lab Value Units Date High Low ABORHD No results within date range. ABSCREEN No results within date range. No results found for: "HBA1C" Recent Results (from the past 8760 hour(s)) XR CHEST 2V FRONTAL/LAT Collection Time: 10/29/24 9:21 AM Impression IMPRESSION: No acute radiographic abnormality. General Studies Program Chair: ESTIVEN Transcribe Date/Time: Oct 29 2024 10:42A Dictated by : LAURA CARPIO MD This examination was interpreted and the report reviewed and electronically signed by: ANGIE ELKINS MD on Oct 29 2024 11:28AM EST ECG COMPLETE Collection Time: 10/29/24 9:16 AM Impression SINUS RHYTHM WITH 1ST DEGREE AV BLOCK OTHERWISE NORMAL ECG ECHO Collection Time: 08/31/24 3:15 PM Impression CONCLUSIONS: - Exam indication: Aortic stenosis - The left ventricle is normal in size. There is moderate septal left ventricular hypertrophy. Left ventricular systolic function is normal. EF = 60 5% (2D biplane) Grade II left ventricular diastolic dysfunction. - The right ventricle is normal in size. Right ventricular systolic function is normal. - The left atrial cavity is mildly dilated. - Tricuspid aortic valve. There is severe aortic valve stenosis caused by calcified valve and restricted opening. AV area is 0.44 cm (0.24 cm /m ) by continuity, VTI. The peak gradient is 98 mmHg, the mean gradient is 61 mmHg and the dimensionless valve index is 0.17. Prior Pk/Mn gradient of 99/57 mmHg. - Exam was compared with the prior CC echocardiographic exam performed on 04/15/2024. SImilar findings. * * * Final * * * Assessment No problem-specific Assessment & Plan notes found for this encounter. ANESTHESIA FINDINGS: Intubation History: No abnormal airway history Significant Anesthesia Considerations: Airway History: No abnormal airway history Prepared for Surgery: The Following Tests/Procedures Have Been Initiated: No orders of the defined types were placed in this encounter. ASA Class: 4 Planned Anesthetic: MAC I - PHYSICAL EVALUATION AIRWAY Patient intubated: No. Tracheostomy tube not present Mallampati: II. TM distance: >3 FB. Neck ROM: full ROM without neurological symptoms. Mouth opening: adequate. Short neck: no. Thick neck: no DENTAL Dental findings: teeth intact. II - ANESTHESIA PLAN ASA Score: 4 Anesthetic Plan: MAC Beta Madhu Monitoring Plan Post Procedure Analgesic Plan Informed Consent Anesthetic risks, benefits, alternatives, personnel and consent discussed: yes. Patient / Responsible Alliance Party agrees to proceed: yes Patient / Surrogate agrees to blood products: Yes Instructions Given to Patient: Instructions located in the after visit summary. Patient given verbal and written preop instructions and voices comprehension and compliance. Signature: Charles Garcia MD Patient Name: Gogo Ware Date: October 29, 2024 Time: 12:49 PM Pager/Contact #: documented in this encounterFair[facility] History of Present illness Narrative* Elba Glez RT(R) - 10/29/2024 11:30 AM EST Radiology Service Progress Note PATIENT NAME: Gogo Ware DATE OF SERVICE: October 29, 2024 TIME: 9:21 AM PATIENT IDENTITY VERIFICATION COMPLETED USING TWO (2) IDENTIFIERS: Name and Date of confirmedby patient verbally. FALL SCREENING: Has the patient had 2 falls in the last year or 1 fall with injury or currently using an Ambulatory Assistive Device (Walker, Cane, Wheelchair, Crutches, etc.)? No PATIENT GENDER DATA: Female. status: : No status: NO. PATIENT RELEVANT IMPLANT DATA REVIEWED: Not Applicable PATIENT PRESENTS WITH AN IMPLANTABLE OR ATTACHED WELL DRILL OPERATOR CABLE TOOL: No RADIOLOGY DEPARTMENT: General X-ray: Exam(s) Completed: Chest X-Ray PERIPHERAL IV DATA: Not applicable SIGNED BY: RT Rhonda(Anh) October 29, 2024 9:21 AM documented in this encounterFairfield [facility] Center01-02-2025 NoteHNO ID: [id number] Author: ELBA GLEZ RT(R) Service: Radiology Author Type: Technologist Type: Progress Notes Filed: 10/29/2024 09:21 Note Text: Radiology Service Progress Note PATIENT NAME: Gogo Ware DATE OF SERVICE: October 29, 2024 TIME: 9:21 AM PATIENT IDENTITY VERIFICATION COMPLETED USING TWO (2) IDENTIFIERS: Name and Date of confirmed by patient verbally. FALL SCREENING: Has the patient had 2 falls in the last year or 1 fall with injury or currently using an Ambulatory Assistive Device (Walker, Cane, Wheelchair, Crutches, etc.)? No PATIENT GENDER DATA: Female. status: : No status: NO. 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 Author Type: Nurse Practitioner Type: Progress Notes Filed: 10/07/2024 16:04 Note Text: I spoke with Gogo Ware on the phone. Will proceed with the following: No fasting is needed on pre-op day. Stop taking anticoagulation: N/A Is patient taking GLP-1 agonist? N/A Yes/No. If Yes hold per protocol Is patient taking SGLT2 Inhibitors? N/A Yes/No. If Yes hold per protocol Dental clearance: completed and scanned Device check N/A Contrast Allergy: N/A Beta Madhu/Calcium Channel Blockers ([address] Aguilera): Carvedilol Luba Llanes APRN.MEDICAL RECORDS SPECIALIST Formerly [facility], [facility], Please schedule Gogo Ware, [phone] for COMMERCIAL TF- TAVR S3 vs ROMEL Procedure on: 10/30/2024 Lab/CXR/EKG Appointment: 10/29/2024 Please schedule HR AVR CLINIC/ Visit on: 10/29/2024 Date of J4-1 Anesthesia only: 10/29/[address] Structural lab schedule on : 10/30/2023 at 5:30 AM CPT Code: 31836 DX code: I35.0 BARGE HAND: Dr. Wells Performing Physician: Dr. Wells OR: 81 Surgeon: Dr. Arteaga Please schedule bed reservation for post procedure-(should be a TCI) MELISSA schedule- intra/op Patient also needs INSURANCE PRECERTIFICATION ADL SCORE 6__ SURVIVAL RATE GREATER THAN 1 YEAR____Y___(LOOKING FOR A YES) EF ___60__(GREATER THAN 50%) KCCQ-12: completed 15 Ft W: completed Thank you. Request sent to scheduling. Luba Llanes APRN.CNPMagruder [facility]12-11-2024 History of Present illness Narrative* Luba Llanes APRN.CNP - 10/07/2024 3:59 PM EST I spoke with Gogo Ware on the phone. Will proceed with the following: No fasting is needed on pre-op day. Stop taking anticoagulation: N/A Is patient taking GLP-1 agonist? N/A Yes/No. If Yes hold per protocol Is patient taking SGLT2 Inhibitors? N/A Yes/No. If Yes hold per protocol Dental clearance: completed and scanned Device check N/A Contrast Allergy: N/A Beta Madhu/Calcium Channel Blockers ([address] Aguilera): Carvedilol Luba Llanes APRN.CNP Formerly [facility], [facility], Please schedule Gogo Ware, [phone] for COMMERCIAL TF- TAVR S3 vs ROMEL Procedure on: 10/30/2024 Lab/CXR/EKG Appointment: 10/29/2024 Please schedule HR AVR CLINIC/ Visit on: 10/29/2024 Date of J4-1 Anesthesia only: 10/29/[address] Structural lab schedule on : 10/30/2023 at 5:30 AM CPT Code: 13561 DX code: I35.0 BARGE HAND: Dr. Wells Performing Physician: Dr. Wells OR: 81 Surgeon: Dr. Arteaga Please schedule bed reservation for post procedure-(should be a TCI) MELISSA schedule- intra/op Patient also needs INSURANCE PRECERTIFICATION ADL SCORE 6__ SURVIVAL RATE GREATER THAN 1 YEAR____Y___(LOOKING FOR A YES) EF ___60__(GREATER THAN 50%) KCCQ-12: completed 15 Ft W: completed Thank you. Request sent to scheduling. Luba Llanes APRN.CNP documented in this encounterFairfield [facility] Center11-20-2024 Telephone encounter Note * Telephone Encounter - Greg Nash APRN.CNP - 09/16/2024 8:31 AM EST Images from the original note were not included. [facility] Work Phone: [phone] Miscellaneous Notes* Telephone Encounter - Greg Nash APRN.CNP - 09/16/2024 8:31 AM EST Images from the original note were not included. documented in this encounterFairfield Medical Center11-18-2024 NoteHNO ID: [id number] Author: KACY JIMENEZ APRN.CNS Service: ? Author Type: Nurse Specialist Type: Progress Notes Filed: 09/14/2024 08:57 Note Text: [facility] Department of Cardiovascular Medicine SECTION OF INTERVENTIONAL CARDIOLOGY Date September 14, 2024 MULTI DISCIPLINARY TAVR TEAM MEETING [employer] Teams Meeting Team members: Dr. Jesus, Dr. Lr, Dr. Wells, Dr. Ruffin, Dr. Shook, Dr. Smith, Dr. Vallejo, Dr. Grace, Dr. Howell, Dr. Cherry, Dr. Love, Dr. Gee, Dr. Ohara, Dr. Forte, , Zoila Gonzalez, JACEY, Gina ALY, Effie DOW and Nilo Garcia RN. PATIENT NAME: Gogo Ware DATE: 09/14/2024 Presenting Physician: Dr. Wells Outcome: Gogo Ware history and imaging were reviewed by the physicians in attendance. Borderline annular size. IFR of LAD was positive in 2018 but no symptoms. Repeat cath same, but still no angina. CT reviewed. The collaborative recommendation would be: TF 25 Romel vs TF 20/ S3 (Dr. Wells will review off-line) The patient will be contacted in the next few days/weeks to discuss the team recommendations. TAVR procedure scheduling will be handled by: CVM coordinator. Kacy Jimenez APRN.[facility]NSMag[facility]11-18-2024 History of Present illness Narrative* Kacy Jimenez APRN.CNS - 09/14/2024 8:52 AM EST Images from the original note were not included. [facility] Department of Cardiovascular Medicine SECTION OF INTERVENTIONAL CARDIOLOGY Date September 14, 2024 MULTI DISCIPLINARY TAVR TEAM MEETING [employer] Teams Meeting Team members: Dr. Jesus, Dr. Lr, Dr. Wells, Dr. Ruffin, Dr. Shook, Dr. Smith, Dr. Vallejo,Dr. Grace, Dr. Howell, Dr. Cherry, Dr. Love, Dr. Gee, Dr. Ohara, Dr. Forte, , Zoila Gonzalez, MEDICAL RECORDS SPECIALIST, Gina ALY, Effie DOW and Nilo Garcia RN. PATIENT NAME: Gogo Ware DATE: 09/14/2024 Presenting Physician: Dr. Wells Outcome: Gogo Ware history and imaging were reviewed by the physicians in attendance. Borderline annular size. IFR of LAD was positive in 2018 but no symptoms. Repeat cath same, but still no angina. CT reviewed. The collaborative recommendation would be: TF 25 Romel vs TF 20/23 S3 (Dr. Wells will review off-line) The patient will be contacted in the next few days/weeks to discuss the team recommendations. TAVR procedure scheduling will be handled by: CVM coordinator. Kacy Jimenez APRN.CNS documented in this encounterFairfield Medical Center11-13-2024 NoteHNO ID: [id number] Author: GENOVEVA ARTEAGA MD Service: ? Author Type: Physician Type: Progress Notes Filed: 09/09/2024 15:51 Note Text: [facility] Template ID: [id number] SERVICE DATE: 09/09/2024 SERVICE TIME: 3:12 PM Patient Type: New Visit to determine Surgery: Yes HPI: Ms. Gogo Ware is a 84 year old female seen regarding candidacy for TAVR vs SAVR. She has h/o CAD (cath showing mid LAD lesion iFR 0.84 - patient did not want to proceed with PCI at the time and has been managed medically), critically severe (MG 57 in 04/20 -> 61). She is active and lives independently - denies any limiting symptoms but does note NAPIER w/ heavy exertion only. She denies CP or LH/dizziness. LHC demonstrating discrete LAD lesion as noted. TAVR CT does demonstrate scattered calcification around root and ascending aorta/arch as well as viscerals and extensive infrarenal atherosclerosis to iliac bifurcation. Noted small iliofemoral system. Impression: Critically severe, symptomatic ; FFR positive mid LAD lesion that has been managed medically Plan: Although patient is quite functional for her age, given age and fraility, she is high risk for SAVR + CABG. Additionally, extensive atherosclerotic burden with stroke risks. She would like TAVR if anatomically amenable and I think this is very appropriate for her. She would do better with expedited recovery and return to her activities. I do not think she is symptomatic from CAD perspective and relatively stable LAD lesion could continue to be treated medically or considered for PCI in the future. Review of TAVR CT and access per heart team and discussed with patient potential for alternative access if team deems necessary. I personally spent 30 minutes in total time involved in the management and care of this patient. SIGNATURE: Genoveva Arteaga MD PATIENT NAME: Gogo Ware DATE: September 09, 2024 TIME: 3:12 [facility]11-13-2024 History of Present illness Narrative* Genoveva Arteaga MD - 09/09/2024 3:11 PM EST [facility] Template ID: [id number] SERVICE DATE: 09/09/2024 SERVICE TIME: 3:12 PM Patient Type: New Visit to determine Surgery: Yes HPI: Ms. Gogo Ware is a 84 year old female seen regarding candidacy for TAVR vs SAVR. She has h/o CAD (cath showing mid LAD lesion iFR 0.84 - patient did not want to proceed with PCI at the time and has been managed medically), critically severe (MG 57 in 6 -> 61). She is active and lives independently - denies any limiting symptoms but does note NAPIER w/ heavy exertion only. She denies CP or LH/dizziness. LHC demonstrating discrete LAD lesion as noted. TAVR CT does demonstrate scattered calcification around root and ascending aorta/arch as well as viscerals and extensive infrarenal atherosclerosis to iliac bifurcation. Noted small iliofemoral system. Impression: Critically severe, symptomatic ; FFR positive mid LAD lesion that has been managed medically Plan: Although patient is quite functional for her age, given age and fraility, she is high risk for SAVR+ CABG. Additionally, extensive atherosclerotic burden with stroke risks. She would like TAVR if anatomically amenable and I think this is very appropriate for her. She would do better with expeditedrecovery and return to her activities. I do not think she is symptomatic from CAD perspective and re latively stable LAD lesion could continue to be treated medically or considered for PCI in the future. Review of TAVR CT and access per heart team and discussed with patient potential for alternativeaccess if team deems necessary. I personally spent 30 minutes in total time involved in the management and care of this patient. SIGNATURE: Genoveva Arteaga MD PATIENT NAME: Gogo Ware DATE: September 09, 2024 TIME: 3:12 PM documented in this encounterFairfield Medical Center11-13-2024 Instructions* Patient Instructions* Luba Llanes APRN.MEDICAL RECORDS SPECIALIST - 09/09/2024 2:23 PM EST Your case will be discussed with the valve team on SaturdaySeptember 14. You will be contacted in about 2-3 weeks after the meeting to discuss the recommendations. If you have not heard from our office after that time, please feel free to contact Dr. Wells's office: [phone] Reminder: Please obtain dental clearance aamir. Have the completed form faxed to our office. Keep the hard copy with you and bring it to your next appointment. We discussed pre-op planning which includes the need to come 1-2 days prior to surgery to have the following: An updated H&P with a provider in our office; pre-surgical labs/testing and to meet with anesthesia. The duration of the procedure is about 2 hours. Hospital stay following TF-TAVR is generally 1 day.Some patients may even be discharged the same day. Discharge time around 10:00 AM. Activity restriction is no heavy lifting of more than 10 pounds for 1 week following TAVR and no extensive walking. Also, post procedure no driving for up to 1-2 weeks. Additional information for post TAVR care: Activity Restrictions post procedure. Do not strain during bowel movements for 3 to 4 days after the procedure. This helps prevent bleeding from the catheter-insertion site. Do not lift anything that weighs more than 10 pounds or push or pull heavy objects for the first 10to 14 days after the procedure. Do not do any strenuous activities for 5 days after the procedure. This includes most sports, such as jogging, golfing, playing tennis and bowling. You may climb stairs if needed, but walk up and down the stairs more slowly than usual. Gradually increase your activity level during the week after the procedure, when you should be backto your normal routine. Do not have sexual intercourse. Ask your doctor when it is safe to resume sexual activity. Do not drive until you get the OK from your doctor. Ask your doctor at your follow-up visit about taking part in Stage II cardiac rehabilitation. Your Anticipated Discharge Needs: Same Day Discharge (Home if live in distance less than 2 hours. If greater than 2 hours exception would be to local hotel) - Evening after 5PM -Must have an adult (persons >18 years old) with you overnight -Follow up in [facility] the next day Next Day Discharge -Transportation/ride by 9 AM - Recommended that you have an adult (persons >18 years old) with you overnight -Follow up in [facility] with in 1 week Cardiac Rehab is a supervised program designed for patients who have certain heart procedures. You will receive a referral prior to discharge so that you can start the outpatient cardiac rehab program 2-3 weeks after you leave the hospital. Cardiac rehab will help you get stronger so you can returnto your routine activities, teach you about lifestyle changes, and nutrition by education and exercise. Completing your cardiac rehab program can greatly help your recovery and greatly reduce your risk of future heart problems. For [facility] call [phone] to schedule after you are home from your procedure. If you do not receive your referral, please call your dermatology physician assistant's office for the order. Luba Llanes APRN.CNP documented in this encounterFairfield Medical Center11-13-2024 History of Present illness Narrative* Luba Llanes APRN.CNP - 09/09/2024 2:00 PM EST Images from the original note were not included. [facility] Department of Cardiovascular Medicine SECTION OF INTERVENTIONAL CARDIOLOGY OUTPATIENT VISIT DATE September 09, 2024 OUTPATIENT VISIT TYPE ESTABLISHED FOLLOW UP Primary Care Physician: Eh Huddl[place] Chi Chief Complaint: Patient is here today for cardiac evaluation follow up. History of Present Illness: Gogo Ware is a 84 year old female who presents for follow up visit today to discuss the evaluation process for aortic valve disease and treatment options which include TAVR. Gogo Ware was last seen by Dr. Wells and will be seeing Dr. Arteaga Gogo Ware is from [place] where she lives alone. Patient states that she has no symptoms. She has her washing machine in the basement and she states that she takes the steps slowly and holdsthe railings but has no difficulties. She does have glaucoma that does limit some of her travel. Denies chest pain, shortness of breath, palpitations, lightheadedness, syncope, and leg swelling CARDIOVASCULAR MEDICINE TESTING: Echocardiogram 08/31/2024 MITRAL VALVE There is mild mitral annular calcification observed posterior. There is mild (1+) mitral valve regurgitation. There is mild thickening. The pressure half time is 57 msec. The peak mitral E/A ratio is 0.92. The mitral flow deceleration time is 196 msec. TRICUSPID VALVE There is trace (trace - 1+) tricuspid valve regurgitation. There is no thickening. AORTIC VALVE There is severe aortic valve stenosis caused by calcified valve and restricted opening. There is trace aortic valve regurgitation. Tricuspid aortic valve. There is severe thickening. There is severe calcification. The peak gradient is 98 mmHg (peak velocity = 494.0 cm/s). The mean gradient is 61 mmHg. The LVOT mean velocity is 67.6 cm/s. The LVOT diameter is 1.8 cm. The aortic VTI is 150.0 cm. The mean velocity in the aortic valve is 368.6 cm/s. The dimensionless valve index is 0.17. AV area is 0.44 cm (0.24 cm /m ) by continuity, VTI. The LVOT stroke volume index is 36 ml/m . PULMONIC VALVE There is trace pulmonic valve regurgitation. There is no thickening. AORTA The visualized aorta is normal in size. Measurements - Sinus: 2.5 cm. INTERATRIAL SEPTUM There is no evidence of intracardiac shunting as detected by Doppler. PERICARDIUM There is no pericardial effusion. There is an epicardial fat pad. - The left ventricle is normal in size. There is moderate septal left ventricular hypertrophy. Left ventricular systolic function is normal. EF = 60 5% (2D biplane) Grade II left ventricular diastolic dysfunction. - The right ventricle is normal in size. Right ventricular systolic function is normal. Cardiac Catheterization 09/03/2024 LMT: The LMT has mild diffuse disease. Additional Comment: The LMT is a large caliber vessel with mild diffuse disease. LAD: The mid LAD is narrowed 70 % - focal disease. Additional Comment: The LAD is a large caliber vessel that wraps around the apex. There is a known moderate to severe lesion in the mid LAD which was previously interrogated in 2018 with iFR 0.84 at the time. This has midly progessed in angiographic appearance. LCX: The mid circumflex is narrowed 40 % - focal disease. Additional Comment: The LCx is a large caliber vessel. There are small OM branches. There is mild to moderate diffuse disease in the mid LCx. RAMUS: Ramus Status: Not Applicable. RCA: The mid RCA - moderate diffuse disease. Additional Comment: The RCA is a large caliber dominent vessel. There is known moderate ostial disease and modarete diffuse disease in the mid RCA. Impression: 1. Right dominant coronary system. 2. Severe stenosis in the LAD which is known to be hemodynamically signfiicant per iFR perforemd in 2018. 3. Diffuse moderate stenosis in the ostial and mid RCA. Recommended Treatment: Medical Therapy. Plan: 1. Medical management of coronary artery disease given lack of anginal symptoms. 2. Outpatient blood pressure follow up-- very elevated today but it was not as elevated recently in clinic (was 144/59 mmHg). 3. Will see CTS then will discuss at conference for next steps regarding consideration of AVR vs TAVR. CT Angiography 08/31/2024 MITRAL VALVE: assessment is limited in the current study - no leaflet calcification. Mild mitral annular calcification TRICUSPID and PULMONIC VALVE: appear unremarkable. CORONARY ANATOMY: normal origin of the coronary arteries. Diffuse, calcified atherosclerotic changes of the coronary arteries, precluding precise assessment with CT. AORTIC ANNULUS: no calcification -max. and min. Diameter: 2.2 x 2.0 cm, AREA: 3.2 cm2, Circumference: 6.4 cm AORTIC VALVE: appears trileaflet. Severe leaflet calcification. - AV calcium score 2353 AU (threshold 160 HU, Score likely underestimated relative to standard threshold of 130 HU) - significant restriction of valve opening with star-shaped systolic opening area consistent with likely severe aortic stenosis. Coronary Height/distance to annulus: Left Main: 13 mm, RCA: 14 mm. AORTA: Pathology: No acute aortic pathology. Intervention: None Complications: n/a Aortic Size: Normal size thoracic and abdominal aorta. STJ: maintained. Wall Changes: scattered moderate partially calcified wall changes. Eccentric noncalcified plaque/thrombus mid descending Moderate to severe partially calcified wall changes infrarenal abdominal aorta. Arch Branch Vessels: Patent, normal size proximal segments of the arch branch vessels, with mild partially calcified wall changes. Visceral Branch Vessels: Patent, normal size proximal segments of the visceral branch vessels and renal arteries, with moderate proximal partially calcified wall changes. Iliac Arteries: Patent, normal size iliac arteries, with mild partially calcified wall changes. AORTIC DIMENSIONS: AORTIC ROOT: 3.0 cm measured [id number] STJ: 2.5 cm mid ASCENDING THORACIC AORTA: 3.7 cm mid AORTIC ARCH: 2.7 cm mid DESCENDING THORACIC AORTA: 2.7 cm JUXTARENAL ABDOMINAL AORTA (level of SMA): 2.1 cm mid INFRARENAL ABDOMINAL AORTA: 1.8 cm , focal mild eccentric dilatation Diameter Left and Right Common Iliac Arteries minimal luminal diameter: 7 / 7 mm respectively Diameter Left and Right External Iliac Arteries minimal luminal diameter: 6 / 6 mm respectively ABDOMEN Gallbladder: Gallstones within the gallbladder. Liver: cystic lesions. Spleen: unremarkable. Adrenal glands: unremarkable. Pancreas: unremarkable. Kidneys: cystic lesions. Bowel: appears unremarkable within limitations of non-GI contrast examination. PELVIS: Bladder: unremarkable. BONES and SOFT TISSUES: degenerative changes of the thoracic and lumbar spine.Bilateral hip arthroplasty Manager Rail (topogram) images: No additional findings. Carotid Ultrasound 08/31/2024 LEFT SIDE Common carotid artery: Proximal: PSV: 72 cm/s. EDV: 10 cm/s. Mid: PSV: 54 cm/s. EDV: 10 cm/s. Distal: PSV: 53 cm/s. EDV: 10 cm/s. Mild heterogeneous plaque at distal. Internal carotid artery: Origin: PSV: 40 cm/s. EDV: 12 cm/s. Proximal: PSV: 46 cm/s. EDV: 15 cm/s. Mid: PSV: 51 cm/s. EDV: 15 cm/s. Distal: PSV: 66 cm/s. EDV: 20 cm/s. Mild heterogeneous plaque from origin to proximal. ICA/CCA Ratio: 0.9 External carotid artery: PSV: 48 cm/s. EDV: 6 cm/s. Subclavian artery: Proximal: PSV: 118 cm/s. EDV: 0 cm/s. Vertebral artery: PSV: 49 cm/s. EDV: 15 cm/s. IMPRESSION RIGHT SIDE Common carotid artery: Plaque visualized without evidence of hemodynamically significant stenosis. Internal carotid artery: <50% stenosis consistent with mild carotid artery disease. Vertebral artery: Patent and antegrade flow noted. LEFT SIDE Common carotid artery: Plaque visualized without evidence of hemodynamically significant stenosis. Internal carotid artery: <50% stenosis consistent with mild carotid artery disease. Vertebral artery: Patent and antegrade flow noted. EKG 08/31/2024 SINUS RHYTHM WITH 1ST DEGREE AV BLOCK CXR 08/31/2024 RESULT: Lines, tubes, and devices: None. Lungs and pleura: Bibasilar atelectasis. No consolidation. No pleural effusion. No pneumothorax. Cardiomediastinal silhouette: Anterior mediastinal cystic mass seen on same day CT not well visualized on this radiograph.. Atherosclerotic calcifications in the thoracic aorta. Bones and soft tissues: Degenerative changes are present within the thoracic spine. Laboratory results Latest Ref Rng 08/31/2024 WBC 3.70 - 11.00 k/uL 6.30 RBC 3.90 - 5.20 m/uL 4.02 Hemoglobin 11.5 - 15.5 g/dL 12.5 Hematocrit 36.0 - 46.0 % 38.1 MCV 80.0 - 100.0 fL 94.8 MCH 26.0 - 34.0 pg 31.1 MCHC 30.5 - 36.0 g/dL 32.8 RDW-CV 11.5 - 15.0 % 13.3 Platelet Count 150 - 400 k/uL 157 MPV 9.0 - 12.7 fL 10.8 Neut% % 59.0 Abs Neut (ANC) 1.45 - 7.50 k/uL 3.72 Lymph% % 30.2 Abs Lymph 1.00 - 4.00 k/uL 1.90 Stanly% % 8.6 Abs Stanly <0.87 k/uL 0.54 Eosin% % 1.7 Abs Eosin <0.46 k/uL 0.11 Baso% % 0.3 Abs Baso <0.11 k/uL <0.03 Immature Gran % % 0.2 IMMATURE GRANS (ABS) <0.10 k/uL <0.03 NRBC /100 WBC 0.0 Absolute nRBC <0.01 k/uL <0.01 DTYPE Auto Protein, Total 6.3 - 8.0 g/dL 7.1 Albumin 3.9 - 4.9 g/dL 4.2 Calcium 8.5 - 10.2 mg/dL 9.6 Bilirubin, Total 0.2 - 1.3 mg/dL 0.3 Alkaline Phosphatase 34 - 123 U/L 66 AST 13 - 35 U/L 42 (H) ALT 7 - 38 U/L 12 Glucose 74 - 99 mg/dL 106 (H) BUN 7 - 21 mg/dL 21 Creatinine 0.58 - 0.96 mg/dL 0.86 Sodium 136 - 144 mmol/L 143 Potassium 3.7 - 5.1 mmol/L 4.9 Chloride 98 - 107 mmol/L 106 CO2 22 - 30 mmol/L 27 Anion Gap 8 - 15 mmol/L 10 eGFR >=60 mL/min/1.73m 66 Total Cholesterol, Nonfasting <200 mg/dL 155 Triglycerides, Nonfasting <150 mg/dL 68 HDL Cholesterol, Nonfasting >39 mg/dL 78 LDL Cholesterol, Nonfasting <100 mg/dL 63 Non HDL Cholesterol, Nonfasting <130 mg/dL 77 VLDL Cholesterol, Nonfasting <30 mg/dL 14 Total Chol/HDL Ratio, Nonfasting <5.10 mg/dL 1.99 LDL/HDL Ratio, Nonfasting <2.54 mg/dL 0.81 NT Pro BNP <450 pg/mL 1,668 (H) GILBERT High Sensitivity <12 ng/L 22 (H) Lipoprotein (a) <30 mg/dL 10 Legend: (H) High I have personally reviewed all of the above testing. [facility] CARDIOMYOPATHY QUESTIONNAIRE (KCCQ-12) Activity: A. Showering/bathing: Extremely limited Quite a bit limited Moderately limited Slightly limited Not at all limited Limited for other reasons or did not do the activity B. Walking 1 block on level ground: Extremely limited Quite a bit limited Moderately limited Slightly limited Not at all limited Limited for other reasons or did not do the activity C.Hurrying or jogging (as if to catch a bus): Extremely limited Quite a bit limited Moderately limited Slightly limited Not at all limited Limited for other reasons or did not do the activity 2. Over the past 2 weeks, how many times did you have swelling in your feet, ankles or legs when you woke up in the morning? Every morning 3 or more times per week but not every day 1-2 times per week less than once a week never over the past 2 weeks 3. Over the past 2 weeks, on average, how many times did you has fatigue limited your ability to dowhat you wanted? All of the time Several times per day At least once per day 3 or more times per week but not every day 1-2 times per week less than once a week never over the past 2 weeks 4. Over the past 2 weeks, on average, how many times has shortness of breath limited your ability to do what you wanted? All of the time Several times per day At least once per day 3 or more times per week but not every day 1-2 times per week less than once a week never over the past 2 weeks 5. Over the past 2 weeks, on average, how many times have your been forced to sleep sitting up in achair or with at least 3 pillows to prop you up because of shortness of breath? Every night 3 or more times per week but not every day 1-2 times per week less than once a week never over the past 2 weeks 6. Over the past 2 weeks, how much has your heart failure limited your enjoyment of life? It has extremely limited my enjoyment of life it has limited my enjoyment of life quite a bit it has moderately limited my enjoyment of life It has slightly limited my enjoyment of life It has not limited my enjoyment of life at all 7. If you had to spend the rest of your life with your heart failure the way it is right now, how would you feel about this? Not at all satisfied Mostly dissatisfied Somewhat satisfied Mostly satisfied Completely satisfied 8. How much does your heart failure affect your lifestyle? Please indicated how your heart failure may have limited your participation in the following activities over the past 2 weeks? A. Hobbies, recreational activities Severely limited Limited quite a bit Moderately limited Slightly limited Did not limit at all Does not apply or did not do for other reasons. 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 C. Visiting family or friends out of your home Severely limited Limited quite a bit Moderately limited Slightly limited Did not limit at all Does not apply or did not do for other reasons. 15 - Foot Walk: 5.3 seconds Cutoff off time to walk 15 feet criterion for frailty: Men Women Height < 173 cm > 7 seconds Height < 159 cm > 7 seconds Height > 173 cm > 6 seconds Height > 159 cm > 6 seconds HISTORY Gogo Ware is an 84 year old female with past medical history of: -CAD (cath in 2018 showing moderate RCA and LAD disease, RCA iFR 0.96 and LAD iFR was abnormal at 0.84 (patient opted not to proceed with PCI of mid LAD, hence being medically managed)) -Severe aortic stenosis (ECHO 04/15/24 showing pk/mn 99/57, EFFIE 0.45 cm2) -HFpEF (EF 64%) -HTN, HLD -Glaucoma (left eye completely blind) ASSESSMENT: Gogo Ware is a 84 year old female who presents today with minimal symptoms NYHA FC II PLAN: I have spoken with Gogo Ware regarding the evaluation process for TAVR. I explained to Gogo Ware that this is a surgical evaluation to determine the best treatment plan for aortic valve stenosis. I reviewed the commercially available [employer] Lifesciences valve and Medtronic valve,including the valve model. I showed the animation of the TF procedure while explaining the procedure. I also reviewed the Sentinnel device. I also discussed possible complications which include: possible stroke, possible pacemaker and/or bleeding. SDM: A formal shared decision making discussion was conducted with the patient during which the benefitsand risks of the TAVR procedure were discussed along with consideration of the patient s values, preferences and wishes. We discussed pre-op planning which includes the need to come 1-2 days prior to surgery to have the following: An updated H&P with a provider in our office; pre-surgical labs/testing and meet with anesthesia. The duration of the procedure will last about 2 hours. Activity Restrictions post procedure. Do not strain during bowel movements for 3 to 4 days after the procedure. This helps prevent bleeding from the catheter-insertion site. Do not lift anything that weighs more than 10 pounds or push or pull heavy objects for the first 10to 14 days after the procedure. Do not do any strenuous activities for 5 days after the procedure. This includes most sports, such as jogging, golfing, playing tennis and bowling. You may climb stairs if needed, but walk up and down the stairs more slowly than usual. Gradually increase your activity level during the week after the procedure, when you should be backto your normal routine. Do not have sexual intercourse. Ask your doctor when it is safe to resume sexual activity. Do not drive until you get the OK from your doctor. Ask your doctor at your follow-up visit about taking part in Stage II cardiac rehabilitation. Your Anticipated Discharge Needs: Same Day Discharge (Home if live in distance less than 2 hours. If greater than 2 hours exception would be to local hotel) - Evening after 5PM -Must have an adult (persons >18 years old) with you overnight -Follow up in [facility] the next day Next Day Discharge -Transportation/ride by 9 AM - Recommended that you have an adult (persons >18 years old) with you overnight -Follow up in [facility] with in 1 week Dental clearance: Dental clearance form given to patient with instructions to complete Does patient have a Nickel allergy? No I have reviewed the following test results: CTA, ECHO, cardiac cath and carotid ultrasound. There also also other alternative access options that may be discussed and recommended depending onyour clinical condition. Hospital stay following an alternative access, such as subclavian TAVR or NATALYA-TAVR , will vary upon the approach. I have discussed with Gogo Ware that once all of the testing has been completed, the results will be reviewed by the HR AVR team and He will be notified of the recommendations. If you are approved for TAVR, you may received a letter in the mail from the TAVR team to inform you of this recommendation. Phone notification following the team meeting could take up to 2-3 weeks. Scheduling of the TAVR procedure could take up to 6-8 weeks from the time of the team recommendations. We also discussed signs and symptoms of increased shortness of breath and peripheral edema should be reported to the local physician right away and be treated accordingly, If hospitalization is required, then it should be done. We can be notified with this information and all efforts will be made to expedite procedure accordingly. I spent a total of 50 minutes on the date of the service which included preparing to see the patient, [id number] patient care, completing clinical documentation, obtaining and/or reviewing separately obtained history, counseling and educating the patient/family/caregiver, and communicating results to the patient/family/caregiver. Luba Llanes APRN.JACEY documented in this encounterFair[facility]11-13-[facility]24 NoteHNO ID: [id number] Author: LUBA LLANES APRN.CNP Service: ? Author Type: Nurse Practitioner Type: Progress Notes Filed: 09/09/2024 17:00 Note Text: [facility] Department of Cardiovascular Medicine SECTION OF INTERVENTIONAL CARDIOLOGY OUTPATIENT VISIT DATE September 09, 2024 OUTPATIENT VISIT TYPE ESTABLISHED FOLLOW UP Primary Care Physician: Eh Huddl[place] Chi Chief Complaint: Patient is here today for cardiac evaluation follow up. History of Present Illness: Gogo Ware is a 84 year old female who presents for follow up visit today to discuss the evaluation process for aortic valve disease and treatment options which include TAVR. Gogo Ware was last seen by Dr. Wells and will be seeing Dr. Arteaga Gogo Ware is from [place] where she lives alone. Patient states that she has no symptoms. She has her washing machine in the basement and she states that she takes the steps slowly and holds the railings but has no difficulties. She does have glaucoma that does limit some of her travel. Denies chest pain, shortness of breath, palpitations, lightheadedness, syncope, and leg swelling CARDIOVASCULAR MEDICINE TESTING: Echocardiogram 08/31/2024 MITRAL VALVE There is mild mitral annular calcification observed posterior. There is mild (1+) mitral valve regurgitation. There is mild thickening. The pressure half time is 57 msec. The peak mitral E/A ratio is 0.92. The mitral flow deceleration time is 196 msec. TRICUSPID VALVE There is trace (trace - 1+) tricuspid valve regurgitation. There is no thickening. AORTIC VALVE There is severe aortic valve stenosis caused by calcified valve and restricted opening. There is trace aortic valve regurgitation. Tricuspid aortic valve. There is severe thickening. There is severe calcification. The peak gradient is 98 mmHg (peak velocity = 494.0 cm/s). The mean gradient is 61 mmHg. The LVOT mean velocity is 67.6 cm/s. The LVOT diameter is 1.8 cm. The aortic VTI is 150.0 cm. The mean velocity in the aortic valve is 368.6 cm/s. The dimensionless valve index is 0.17. AV area is 0.44 cm? (0.24 cm?/m?) by continuity, VTI. The LVOT stroke volume index is 36 ml/m?. PULMONIC VALVE There is trace pulmonic valve regurgitation. There is no thickening. AORTA The visualized aorta is normal in size. Measurements - Sinus: 2.5 cm. INTERATRIAL SEPTUM There is no evidence of intracardiac shunting as detected by Doppler. PERICARDIUM There is no pericardial effusion. There is an epicardial fat pad. - The left ventricle is normal in size. There is moderate septal left ventricular hypertrophy. Left ventricular systolic function is normal. EF = 60 ? 5% (2D biplane) Grade II left ventricular diastolic dysfunction. - The right ventricle is normal in size. Right ventricular systolic function is normal. Cardiac Catheterization 09/03/2024 LMT: The LMT has mild diffuse disease. Additional Comment: The LMT is a large caliber vessel with mild diffuse disease. LAD: The mid LAD is narrowed 70 % - focal disease. Additional Comment: The LAD is a large caliber vessel that wraps around the apex. There is a known moderate to severe lesion in the mid LAD which was previously interrogated in 2018 with iFR 0.84 at the time. This has midly progessed in angiographic appearance. LCX: The mid circumflex is narrowed 40 % - focal disease. Additional Comment: The LCx is a large caliber vessel. There are small OM branches. There is mild to moderate diffuse disease in the mid LCx. RAMUS: Ramus Status: Not Applicable. RCA: The mid RCA - moderate diffuse disease. Additional Comment: The RCA is a large caliber dominent vessel. There is known moderate ostial disease and modarete diffuse disease in the mid RCA. Impression: 1. Right dominant coronary system. 2. Severe stenosis in the LAD which is known to be hemodynamically signfiicant per iFR perforemd in 2018. 3. Diffuse moderate stenosis in the ostial and mid RCA. Recommended Treatment: Medical Therapy. Plan: 1. Medical management of coronary artery disease given lack of anginal symptoms. 2. Outpatient blood pressure follow up-- very elevated today but it was not as elevated recently in clinic (was 144/59 mmHg). 3. Will see CTS then will discuss at conference for next steps regarding consideration of AVR vs TAVR. CT Angiography 08/31/2024 MITRAL VALVE: assessment is limited in the current study - no leaflet calcification. Mild mitral annular calcification TRICUSPID and PULMONIC VALVE: appear unremarkable. CORONARY ANATOMY: normal origin of the coronary arteries. Diffuse, calcified atherosclerotic changes of the coronary arteries, precluding precise assessment with CT. AORTIC ANNULUS: no calcification -max. and min. Diameter: 2.2 x 2.0 cm, AREA: 3.2 cm2, Circumference: 6.4 cm AORTIC VALVE: appears trileaflet. Se (more content not included)...[facility]11-13-2024 NoteHNO ID: [id number] Author: TERRIE PRASAD RRT Service: ? Author Type: Registered Resp Therapist Type: Progress Notes Filed: 09/09/2024 12:31 Note Text: PULM FUNCTION: Provider: Kacy Jimenez APRN.NAPPER GRINDER Spirometry: 1 [facility] History of Present illness Narrative * Terrie Prasad RRT - 09/09/2024 12:31 PM EST PULM FUNCTION: Provider: Kacy Jimenez APRN.NAPPER GRINDER Spirometry: 1 DLCO: 1 documented in this encounterFairfield [facility] Center11-13-2024 History of Present illness Narrative* Vel Whalen RT(R) - 09/09/2024 12:15 PM EST RADIOLOGY SERVICE PROGRESS NOTE SERVICE DATE: 09/09/2024 SERVICE TIME: 11:17 AM PATIENT IDENTITY VERIFICATION COMPLETED USING TWO (2) STANDARD IDENTIFIERS: Name and Date of confirmed by patient verbally and Name and Date of confirmed by identification band FALL SCREENING: Has the patient had 2 falls in the last year or 1 fall with injury or currently using an Ambulatory Assistive Device (Walker, Cane, Wheelchair, Crutches, etc.)? No PATIENT GENDER DATA: .female : No ALLERGIES: Reviewed and unchanged MEDICATIONS REVIEWED: Yes PATIENT RELEVANT IMPLANT DATA REVIEWED: Not Applicable PATIENT PRESENTS WITH AN IMPLANTABLE OR ATTACHED WELL DRILL OPERATOR CABLE TOOL: No CREATININE: Creatinine Date Value Ref Range Status 08/31/2024 0.86 0.58 - 0.96 mg/dL Final 03/24/2019 0.65 0.58 - 0.96 mg/dL Final Creatinine (POCT) Date Value Ref Range Status 08/31/2024 0.80 0.7 - 1.4 mg/dL Final eGFR (POCT) Date Value Ref Range Status 08/31/2024 >60 mL/min/1.73 m2 Final eGFR- Date Value Ref Range Status 03/24/2019 >60 Final P.O.C.T. RESULTS: N/A September 09, [address] PERFORMED: No IV SITE: Ambulatory: A peripheral IV was started in the Right antecubital site with a Angio cath: 22 gauge. POST EXAM PIV STATUS: Discontinued PROCEDURE TYPE: NM INJECT: Cardiac Amyloid . 24.0 mCi Tc99m HDP. No other medications given.. ADMINISTRATION TIME: 1110 PATIENT DISCHARGED TO: Ambulatory patient, left NM department area. Is this a therapy: No A Diagnostic radioactive procedure has taken place, with no further precautions necessary other than routine body substance precautions. More information regarding radiation safety can be found usingthis link: [email or web address] SIGNATURE: RT Pineda(R) PATIENT NAME: Gogo Ware DATE: September 09, 2024 TIME: 11:17 AM PAGER/CONTACT #: documented in this encounterFairfield [facility] Center11-13-2024 NoteHNO ID: [id number] Author: VEL WHALEN RT(R) Service: Radiology Author Type: Technologist Type: Progress Notes Filed: 09/09/2024 11:19 Note Text: RADIOLOGY SERVICE PROGRESS NOTE SERVICE DATE: 09/09/2024 SERVICE TIME: 11:17 AM PATIENT IDENTITY VERIFICATION COMPLETED USING TWO (2) STANDARD IDENTIFIERS: Name and Date of confirmed by patient verbally and Name and Date of confirmed by identification band FALL SCREENING: Has the patient had 2 falls in the last year or 1 fall with injury or currently using an Ambulatory Assistive Device (Walker, Cane, Wheelchair, Crutches, etc.)? No PATIENT GENDER DATA: .female : No ALLERGIES: Reviewed and unchanged MEDICATIONS REVIEWED: Yes PATIENT RELEVANT IMPLANT DATA REVIEWED: Not Applicable PATIENT PRESENTS WITH AN IMPLANTABLE OR ATTACHED WELL DRILL OPERATOR CABLE TOOL: No CREATININE: Creatinine Date Value Ref Range Status 08/31/2024 0.86 0.58 - 0.96 mg/dL Final 03/24/2019 0.65 0.58 - 0.96 mg/dL Final Creatinine (POCT) Date Value Ref Range Status 08/31/2024 0.80 0.7 - 1.4 mg/dL Final eGFR (POCT) Date Value Ref Range Status 08/31/2024 >60 mL/min/1.73 m2 Final eGFR- Date Value Ref Range Status 03/24/2019 >60 Final P.O.C.T. RESULTS: N/A September 09, [address] PERFORMED: No IV SITE: Ambulatory: A peripheral IV was started in the Right antecubital site with a Angio cath: 22 gauge. POST EXAM PIV STATUS: Discontinued PROCEDURE TYPE: NM INJECT: Cardiac Amyloid . 24.0 mCi Tc99m HDP. No other medications given.. ADMINISTRATION TIME: 1110 PATIENT DISCHARGED TO: Ambulatory patient, left NM department area. Is this a therapy: No A Diagnostic radioactive procedure has taken place, with no further precautions necessary other than routine body substance precautions. More information regarding radiation safety can be found using this link: [email or web address] SIGNATURE: RT Pineda(R) PATIENT NAME: Gogo Ware DATE: September 09, 2024 TIME: 11:17 AM PAGER/CONTACT #:[facility]11-06-2024 Telephone encounter Note* Telephone Encounter - Trinity Dawkins RN - 09/02/2024 1:24 PM EST CARDIOVASCULAR LAB INSTRUCTIONS: Readiness to Learn: Cognitive Ability: Alert and oriented Motivation To Learn: Interested Family/Significant Other Support: Unable to assess - Family not present Instruction Provided To: Patient Patient Learns Best By: Verbal Instruction Factors Affecting Learning: None Physical Limitations Affecting Learning: None Learning Response: Procedure: Left Heart Diagnostic Pre procedure education topics: Arrival time/NPO Status/Medications/Travel Instructions/Restrictions Patient/Family Response Evaluation: Verbalizes understanding Follow Up Plan and Medication: As directed by physician Instruction/Supplemental Material Given: Cardiac catheterization instructions, procedure information, hospital information, hotel information. Instructed By Trinity Dawkins RN, RN. In Department of CARDIOLOGY. [facility]11-06-[facility] Miscellaneous Notes* Telephone Encounter - Trinity Dawkins RN - 09/02/2024 1:24 PM EST CARDIOVASCULAR LAB INSTRUCTIONS: Readiness to Learn: Cognitive Ability: Alert and oriented Motivation To Learn: Interested Family/Significant Other Support: Unable to assess - Family not present Instruction Provided To: Patient Patient Learns Best By: Verbal Instruction Factors Affecting Learning: None Physical Limitations Affecting Learning: None Learning Response: Procedure: Left Heart Diagnostic Pre procedure education topics: Arrival time/NPO Status/Medications/Travel Instructions/Restrictions Patient/Family Response Evaluation: Verbalizes understanding Follow Up Plan and Medication: As directed by physician Instruction/Supplemental Material Given: Cardiac catheterization instructions, procedure information, hospital information, hotel information. Instructed By Trinity Dawkins RN, RN. In Department of CARDIOLOGY. documented in this encounter[facility]11-04-2024 History of Present illness Narrative* Live Escalante RT(R) - 08/31/2024 1:30 PM EST Radiology Service Progress Note PATIENT NAME: Gogo Ware DATE OF SERVICE: August 31, 2024 TIME: 12:40 PM PATIENT IDENTITY VERIFICATION COMPLETED USING TWO (2) IDENTIFIERS: Name and Date of confirmedby patient verbally and Name and Date of confirmed by identification band. FALL SCREENING: Has the patient had 2 falls in the last year or 1 fall with injury or currently using an Ambulatory Assistive Device (Walker, Cane, Wheelchair, Crutches, etc.)? No PATIENT GENDER DATA: Female. status: : No status: NO. PATIENT RELEVANT IMPLANT DATA REVIEWED: Yes PATIENT PRESENTS WITH AN IMPLANTABLE OR ATTACHED WELL DRILL OPERATOR CABLE TOOL: No RADIOLOGY DEPARTMENT: CT; Exam(s) Completed: Cardiac PERIPHERAL IV DATA: Site assessment: Clean,Dry and Intact, Site disposition Discontinued SIGNED BY: RT Shoshana(R) August 31, 2024 12:40 PM * Chloé Conn RN - 08/31/2024 1:30 PM EST Radiology Service Progress Note DATE OF SERVICE: August 31, 2024 TIME: 12:07 PM PATIENT WEIGHT: 163LBS PATIENT IDENTITY VERIFICATION COMPLETED USING TWO (2) STANDARD IDENTIFIERS: Name and Date of confirmed by patient verbally and Name and Date of confirmed by identification band. FALL SCREENING: Has the patient had 2 falls in the last year or 1 fall with injury or currently using an Ambulatory Assistive Device (Walker, Cane, Wheelchair, Crutches, etc.)? No PATIENT GENDER DATA: Female. status: : No status: NO. ALLERGIES: Reviewed and unchanged CONTRAST ALLERGY: No EXAM: CT -CONTRAST INDUCED NEPHROPATHY RISK FACTORS: Patient age > 60 years CREATININE: Creatinine Date Value Ref Range Status 03/24/2019 0.65 0.58 - 0.96 mg/dL Final 07/14/2018 0.67 0.58 - 0.96 mg/dL Final Creatinine (POCT) Date Value Ref Range Status 08/31/2024 0.80 0.7 - 1.4 mg/dL Final eGFR (POCT) Date Value Ref Range Status 08/31/2024 >60 mL/min/1.73 m2 Final eGFR- Date Value Ref Range Status 03/24/2019 >60 Final P.O.C.T. RESULTS: POC done: Yes, See Lab Tab August 31, 2024 TREATMENT: No Hydration needed. IV SITE: Ambulatory: A peripheral IV was started in the Left antecubital site with a Angio cath: 20gauge. and A Saline lock was inserted per protocol IV SITE APPEARANCE: Clean,Dry and Intact SIGNATURE: Chloé Conn RN PATIENT NAME: Gogo Ware DATE: August 31, 2024 TIME: 12:07 PM documented in this encounterFairfield Medical Center11-04-2024 NoteHNO ID: [id number] Author: CHLOÉ CONN RN Service: ? Author Type: Registered Nurse Type: Progress Notes Filed: 08/31/2024 12:41 Note Text: Radiology Service Progress Note DATE OF SERVICE: August 31, 2024 TIME: 12:07 PM PATIENT WEIGHT: 163LBS PATIENT IDENTITY VERIFICATION COMPLETED USING TWO (2) STANDARD IDENTIFIERS: Name and Date of confirmed by patient verbally and Name and Date of confirmed by identification band. FALL SCREENING: Has the patient had 2 falls in the last year or 1 fall with injury or currently using an Ambulatory Assistive Device (Walker, Cane, Wheelchair, Crutches, etc.)? No PATIENT GENDER DATA: Female. status: : No status: NO. ALLERGIES: Reviewed and unchanged CONTRAST ALLERGY: No EXAM: CT -CONTRAST INDUCED NEPHROPATHY RISK FACTORS: Patient age > 60 years CREATININE: Creatinine Date Value Ref Range Status 03/24/2019 0.65 0.58 - 0.96 mg/dL Final 07/14/2018 0.67 0.58 - 0.96 mg/dL Final Creatinine (POCT) Date Value Ref Range Status 08/31/2024 0.80 0.7 - 1.4 mg/dL Final eGFR (POCT) Date Value Ref Range Status 08/31/2024 >60 mL/min/1.73 m2 Final eGFR- Date Value Ref Range Status 03/24/2019 >60 Final P.O.C.T. RESULTS: POC done: Yes, See Lab Tab August 31, 2024 TREATMENT: No Hydration needed. IV SITE: Ambulatory: A peripheral IV was started in the Left antecubital site with a Angio cath: 20 gauge. and A Saline lock was inserted per protocol IV SITE APPEARANCE: Clean,Dry and Intact SIGNATURE: Chloé Conn RN PATIENT NAME: Gogo Ware DATE: August 31, 2024 TIME: 12:07 [facility]11-04-2024 NoteHNO ID: [id number] Author: LIVE ESCALANTE RT(R) Service: Radiology Author Type: Technologist Type: Progress Notes Filed: 08/31/2024 12:40 Note Text: Radiology Service Progress Note PATIENT NAME: Gogo Ware DATE OF SERVICE: August 31, 2024 TIME: 12:40 PM PATIENT IDENTITY VERIFICATION COMPLETED USING TWO (2) IDENTIFIERS: Name and Date of confirmed by patient verbally and Name and Date of confirmed by identification band. FALL SCREENING: Has the patient had 2 falls in the last year or 1 fall with injury or currently using an Ambulatory Assistive Device (Walker, Cane, Wheelchair, Crutches, etc.)? No PATIENT GENDER DATA: Female. status: : No status: NO. PATIENT RELEVANT IMPLANT DATA REVIEWED: Yes PATIENT PRESENTS WITH AN IMPLANTABLE OR ATTACHED WELL DRILL OPERATOR CABLE TOOL: No RADIOLOGY DEPARTMENT: CT; Exam(s) Completed: Cardiac PERIPHERAL IV DATA: Site assessment: Clean,Dry and Intact, Site disposition Discontinued SIGNED BY: RT Shoshana(R) August 31, 2024 12:40 [facility]11-04-2024 History of Present illness Narrative* Odilon Wells MD - 08/31/2024 11:12 AM EST Interventional Cardiology Staff Note Dr. Wells receives payments from several device companies for educational activities, advisory boardduties, consulting, and/or proctoring. The companies include: [employer], [employer], and [employer]. A product by [employer], [employer], [employer], or a competitor, may be used in this patient's care. Dr. Wells does not receive any money for products he or any other [facility] physicians prescribe or use. Dr. Wells's choice on which product used in this patient's case is or was not influenced by his relationship with any company. Dr. Wells selected the product that in his hands is believed to be the best option for this patient's treatment. This was discussed with the patient. Odilon Wells MD, MSc documented in this encounterFairfield Medical Center11-04-2024 NoteHNO ID: [id number] Author: ODILON WELLS MD Service: ? Author Type: Physician Type: Progress Notes Filed: 08/31/2024 11:12 Note Text: Interventional Cardiology Staff Note Dr. Wells receives payments from several device companies for educational activities, advisory board duties, consulting, and/or proctoring. The companies include: [employer], [employer], and [employer]. A product by [employer], [employer], [employer], or a competitor, may be used in this patient's care. Dr. Wells does not receive any money for products he or any other [facility] physicians prescribe or use. Dr. Wells's choice on which product used in this patient's case is or was not influenced by his relationship with any company. Dr. Wells selected the product that in his hands is believed to be the best option for this patient's treatment. This was discussed with the patient. Odilon Wells MD, MSc[facility]11-04-2024 History of Present illness Narrative* Odilon Wells MD - 08/31/2024 9:45 AM EST Images from the original note were not included. [facility] Department of Cardiovascular Medicine SECTION OF INTERVENTIONAL CARDIOLOGY OUTPATIENT VISIT DATE August 31, 2024 OUTPATIENT VISIT TYPE NEW PRIMARY CARE PHYSICIAN: Berta Rankin [address] [address] REFERRING PHYSICIAN: James Lindo MD, PhD, [facility] Staff, Section of Cardiovascular Imaging Department of Cardiovascular Medicine [facility] CHIEF COMPLAINT: TAVR evaluation HISTORY OF PRESENT ILLNESS: Ms. Ware is a 84 year old female from [place] who presents today for TAVR evaluation. She has a history significant for -CAD (cath in 2018 showing moderate RCA and LAD disease, RCA iFR 0.96 and LAD iFR was abnormal at 0.84 (patient opted not to proceed with PCI of mid LAD, hence being medically managed)) -Severe aortic stenosis (ECHO 04/15/24 showing pk/mn 99/57, EFFIE 0.45 cm2) -HFpEF (EF 64%) -HTN, HLD -Glaucoma (left eye completely blind) She lives in [facility], and she is very functionally active. She lives by herself. She is able to do all the activities independently. She mentions her only symptoms is shortness of breath when she walks up the hill and that has been present for a year. She denies SOB at rest or with minimal exertion. She denies chest pain, dizziness, lightheadedness or palpitations. She was seen by Dr. Lindo in clinic 04/28/24 and was referred here for TAVR evaluation. Her ECHO performed 04/15/24 showed severe with pk/mn 99/57, EFFIE 0.45 cm2, DVI 0.17 and preserved EF. Her NT pro BNP resulted at 1500. Her daughter lives in [place] and rest of her family in [facility]. PAST MEDICAL HISTORY Diagnosis Date Aortic valve stenosis CAD (coronary artery disease) Disease PROBLEM SLEEPING Essential hypertension Glaucoma HTN (hypertension) Mixed hyperlipidemia PAST SURGICAL HISTORY Procedure Laterality Date PROCEDURE 1999, 2006 BOTH HIPS REPLACED PROCEDURE 10/28/2009 LASER OU FOR GLAUCOMA REMV CATARACT EXTRACAP,INSERT LENS Left 04/20/2024 Social History Tobacco Use Smoking status: Never Smokeless tobacco: Never Vaping Use Vaping status: Never Used Substance Use Topics Alcohol use: Never Drug use: Never FAMILY HISTORY Problem Relation Age of Onset Glaucoma Father Diabetes Father Coronary Artery Disease Sister Colon Cancer Maternal Grandmother Stroke Maternal Grandfather Blindness Other GREAT AUNT Colon Cancer Other ALLERGIES No Known Allergies MEDICATIONS: valsartan (DIOVAN) 160 mg tablet Take 0.5 tablets by mouth once daily. carvedilol (COREG) 12.5 mg tablet Take 1 tablet by mouth twice daily with meals. atorvastatin (LIPITOR) 40 mg tablet Take 1 tablet by mouth once daily. brimonidine (ALPHAGAN) 0.2 % ophthalmic solution Use 2 Drops in both eyes twice daily. DORZOLAMIDE HCL/TIMOLOL MALEAT (DORZOLAMIDE-TIMOLOL OPHTHALMIC) Use 1 Drop in eyes twice daily. aspirin, enteric coated (ASPIRIN, ENTERIC COATED) 81 mg EC tablet Take 81 mg by mouth once daily. temazepam (RESTORIL) 30 mg cap Take 30 mg by mouth at bedtime as needed. latanoprost (XALATAN) 0.005 % ophthalmic solution Use 1 Drop in both eyes daily at bedtime. moxifloxacin (VIGAMOX) 0.5 % ophthalmic solution Use 1 Drop in the left eye four times daily. (Patient not taking: Reported on 05/26/2024) REVIEW OF SYSTEMS: GENERAL: Weight loss or gain, Fever or Chills, Weakness and Sleep difficulties. HEENT: Headache, Glasses/Contacts, Eye pain, Impaired Vision, Trouble/Decreased Hearing, Ringing inEars, Nosebleeds, Dental Problems, Bleeding Gums, Dentures NECK: Swelling, Pain, Stiffness RESPIRATORY: Cough, Blood in Sputum, Shortness of breath, Wheezing, Asthma, Sleep Apnea SKIN: Rashes, Itching GASTROINTESTINAL: Trouble swallowing, Heartburn, Change in bowel habits, Blood in stool, Dark blackstools MUSCULOSKELETAL: Muscle or joint pain, Stiffness , Joint swelling NEUROLOGIC/PSYCHIATRIC: Weakness, Paralysis, Numbness, Tingling, Tremor, Nervousness, Anxiety, Depressed mood, Memory loss HEMATOLOGICAL/LYMPHATIC: Easy bruising , Easy bleeding ENDOCRINE: Heat or cold intolerance, Excessive sweating, Frequent urination, Frequent thirst PHYSICAL EXAMINATION: BP 144/59 Pulse 65 Resp 18 Ht 5' 5" (1.65m) Wt 163 lb 9.6 oz (74.2kg) SpO2 98[RA]% BMI 27.22 kg/(m^2). General: Well appearing, in no acute distress. Skin: No clubbing, no cyanosis. Eyes: Extra ocular movements intact Oropharynx: Teeth in good repair. Neck: No jugular venous distention, no carotid bruits, carotids have a normal upstroke, no palpablethyromegaly. Lungs: Clear to auscultation bilaterally, no wheezing or rhonchi. Heart: Regular rhythm, PMI not displaced, S1, S2 normal, no S3, no S4, no heaves, no rub and 3 out of 6 ejection systolic murmur radiating to the carotids Abdomen: Soft, nontender, bowel sounds normal, no palpable organomegaly, no bruits. Extremities: No peripheral edema . Neuro: Oriented to person, place and time, alert, cooperative, gait coordinated. CARDIOVASCULAR MEDICINE TESTING: ECHO 04/15/24 CONCLUSIONS: - Technically difficult exam due to body habitus. - Exam indication: Initial evaluation valvular heart disease - The left ventricle is normal in size. There is mild concentric left ventricular hypertrophy. Left ventricular systolic function is normal. EF = 64 5% (2D biplane) Grade I left ventricular diastolic dysfunction. - The right ventricle is normal in size. Right ventricular systolic function is normal. - There is severe aortic valve stenosis caused by calcified valve and restricted opening. AV area is 0.45 cm (0.24 cm /m ) by continuity, VTI. The peak gradient is 99 mmHg, the mean gradient is 57 mmHg and the dimensionless valve index is 0.17. - The patient has not had a prior CC echocardiographic exam for comparison. IMPRESSION: Ms. Ware is a 84 year old female with a history of CAD (cath in 2018 showing moderate RCA and LAD disease, RCA iFR 0.96 and LAD iFR was abnormal at 0.84 (patient opted not to proceed with PCI of mid LAD, hence being medically managed)), severe aortic stenosis (ECHO 04/15/24 showing pk/mn 99/57, EFFIE 0.45 cm2), HFpEF (EF 64%), HTN, HLD. She is presenting for TAVR evaluation. In terms of her symptoms, she has SOB on walking up a hill but denies SOB on minimal exertion. She is very functionally active. She has severe with high gradients. She states that this time if needed she is willing to proceed with PCI and also TAVR if needed. Impression: Peak aortic velocity of 4.98 m/s almost consistent with critical which makes it class 1 indication for AVR. We will obtain CT TAVR protocol to ascertain anatomic candidacy for TF-TAVR PLAN AND RECOMMENDATIONS: -CT scan TAVR protocol 08/31 -Cardiac Catheterization 09/03 -CTS consultation 09/09 -Obtain lipid panel Marisol Bergeron MD PGY-6 [employer] Law Clerk I personally interviewed, confirmed and edited the above information as obtained by others. ----- [facility] STAFF PHYSICIAN NOTE OF PERSONAL INVOLVEMENT IN CARE IMPRESSION AND PLAN: I agree with the note by Dr. Bergeron. Gogo Hdez is an 84 year old female with very severe, symptomatic with AV Peak Surinder ~5.0 m/sec. Symptoms are relatively mild, NYHA FC I chronic diastolic HF including mild NAPIER though NT pro BNP is elevated. She is known to have hemodynamically significantmid LAD disease which has been medically managed since 2018. She remains without anginal symptoms. She has a good indication for AVR. Options include surgical AVR + CABG vs TAVR with medical management of LAD disease +/- PCI at a later date. She has a baseline 1st degree AVB w DC 210 ms, and would be at higher risk of permanent pacemaker with either TAVR or SAVR. Her sister has in fact had TAVR in [place] and had a great result. Her age and preferences would favor a percutaneous approach if she is a good anatomic candidate forTAVR. We will await an updated LHC, CTA and discuss at the heart team meeting. I have reviewed the documentation obtained and documented by the Fellow and I have personally performed a face to face assessment of the patient and have personally participated in the rose componentsof the visit which includes medical decision making.. I have discussed the case and management of the patient's care. STAFF PHYSICIAN: Odilon Wells MD DATE OF SERVICE: August 31, 2024 TIME OF SERVICE: 10:06 AM documented in this encounterFairfield [facility] Center11-04-2024 NoteHNO ID: [id number] Author: ODILON WELLS MD Service: ? Author Type: Physician Type: Progress Notes Filed: 08/31/2024 10:20 Note Text: [facility] Department of Cardiovascular Medicine SECTION OF INTERVENTIONAL CARDIOLOGY OUTPATIENT VISIT DATE August 31, 2024 OUTPATIENT VISIT TYPE NEW PRIMARY CARE PHYSICIAN: Berta Rankin [address] [address] REFERRING PHYSICIAN: James Lindo MD, PhD, [facility] Staff, Section of Cardiovascular Imaging Department of Cardiovascular Medicine [facility] CHIEF COMPLAINT: TAVR evaluation HISTORY OF PRESENT ILLNESS: Ms. Ware is a 84 year old female from [place] who presents today for TAVR evaluation. She has a history significant for -CAD (cath in 2018 showing moderate RCA and LAD disease, RCA iFR 0.96 and LAD iFR was abnormal at 0.84 (patient opted not to proceed with PCI of mid LAD, hence being medically managed)) -Severe aortic stenosis (ECHO 04/15/24 showing pk/mn 99/57, EFFIE 0.45 cm2) -HFpEF (EF 64%) -HTN, HLD -Glaucoma (left eye completely blind) She lives in [facility], and she is very functionally active. She lives by herself. She is able to do all the activities independently. She mentions her only symptoms is shortness of breath when she walks up the hill and that has been present for a year. She denies SOB at rest or with minimal exertion. She denies chest pain, dizziness, lightheadedness or palpitations. She was seen by Dr. Lindo in clinic 04/28/24 and was referred here for TAVR evaluation. Her ECHO performed 04/15/24 showed severe with pk/mn 99/57, EFFIE 0.45 cm2, DVI 0.17 and preserved EF. Her NT pro BNP resulted at 1500. Her daughter lives in [place] and rest of her family in [facility]. PAST MEDICAL HISTORY Diagnosis Date Aortic valve stenosis CAD (coronary artery disease) Disease PROBLEM SLEEPING Essential hypertension Glaucoma HTN (hypertension) Mixed hyperlipidemia PAST SURGICAL HISTORY Procedure Laterality Date PROCEDURE 1999, 2006 BOTH HIPS REPLACED PROCEDURE 10/28/2009 LASER OU FOR GLAUCOMA REMV CATARACT EXTRACAP,INSERT LENS Left 04/20/2024 Social History Tobacco Use Smoking status: Never Smokeless tobacco: Never Vaping Use Vaping status: Never Used Substance Use Topics Alcohol use: Never Drug use: Never FAMILY HISTORY Problem Relation Age of Onset Glaucoma Father Diabetes Father Coronary Artery Disease Sister Colon Cancer Maternal Grandmother Stroke Maternal Grandfather Blindness Other GREAT AUNT Colon Cancer Other ALLERGIES No Known Allergies MEDICATIONS: valsartan (DIOVAN) 160 mg tablet Take 0.5 tablets by mouth once daily. carvedilol (COREG) 12.5 mg tablet Take 1 tablet by mouth twice daily with meals. atorvastatin (LIPITOR) 40 mg tablet Take 1 tablet by mouth once daily. brimonidine (ALPHAGAN) 0.2 % ophthalmic solution Use 2 Drops in both eyes twice daily. DORZOLAMIDE HCL/TIMOLOL MALEAT (DORZOLAMIDE-TIMOLOL OPHTHALMIC) Use 1 Drop in eyes twice daily. aspirin, enteric coated (ASPIRIN, ENTERIC COATED) 81 mg EC tablet Take 81 mg by mouth once daily. temazepam (RESTORIL) 30 mg cap Take 30 mg by mouth at bedtime as needed. latanoprost (XALATAN) 0.005 % ophthalmic solution Use 1 Drop in both eyes daily at bedtime. moxifloxacin (VIGAMOX) 0.5 % ophthalmic solution Use 1 Drop in the left eye four times daily. (Patient not taking: Reported on 05/26/2024) REVIEW OF SYSTEMS: GENERAL: Weight loss or gain, Fever or Chills, Weakness and Sleep difficulties. HEENT: Headache, Glasses/Contacts, Eye pain, Impaired Vision, Trouble/Decreased Hearing, Ringing in Ears, Nosebleeds, Dental Problems, Bleeding Gums, Dentures NECK: Swelling, Pain, Stiffness RESPIRATORY: Cough, Blood in Sputum, Shortness of breath, Wheezing, Asthma, Sleep Apnea SKIN: Rashes, Itching GASTROINTESTINAL: Trouble swallowing, Heartburn, Change in bowel habits, Blood in stool, Dark black stools MUSCULOSKELETAL: Muscle or joint pain, Stiffness , Joint swelling NEUROLOGIC/PSYCHIATRIC: Weakness, Paralysis, Numbness, Tingling, Tremor, Nervousness, Anxiety, Depressed mood, Memory loss HEMATOLOGICAL/LYMPHATIC: Easy bruising , Easy bleeding ENDOCRINE: Heat or cold intolerance, Excessive sweating, Frequent urination, Frequent thirst PHYSICAL EXAMINATION: BP 144/59 Pulse 65 Resp 18 Ht 5' 5" (1.65m) Wt 163 lb 9.6 oz (74.2kg) SpO2 98[RA]% BMI 27.22 kg/(m2). General: Well appearing, in no acute distress. Skin: No clubbing, no cyanosis. Eyes: Extra ocular movements intact Oropharynx: Teeth in good repair. Neck: No jugular venous distention, no carotid bruits, carotids have a normal upstroke, no palpable thyromegaly. Lungs: Clear to auscultation bilaterally, no wheezing or rhonchi. Heart: Regular rhythm, PMI not displaced, S1, S2 normal, no S3, no S4, no heaves, (more content not included)...[facility]08-13-2024 Note HNO ID: [id number] Author: KACY JIMENEZ APRN.NAPPER GRINDER Service: ? Author Type: Nurse Specialist Type: Progress Notes Filed: 06/09/2024 16:05 Note Text: TAVR STRUCTURAL REVIEW FORM Orders placed by Dr. Lindo on 05/22/2024 Records Reviewed: 06/09/2024 Appt request sent: 06/09/2024 I spoke with her on the phone. She lives alone and has a friend drive her for all of her appointments. her daughter lives in [place]; the rest of her family is in [place]. She is not interested in open hear surgery. She is very independent. She reports she doesn't have symptoms. however, I reviewed with her the results of her BNP and what this means in relation to her . She is agreeable to come for the evaluation. Records in [facility] have been reviewed. Severe . Request has been sent to the medical office scheduler who will arrange an appointment schedule. Please note it can take up to 4 weeks for scheduling to take place. Once completed, a TAVR packet and schedule will be mailed to patient's home address. PLEASE NOTE: Appointment schedule being sent to the patient will be for CONSULTATION AND TESTING. All studies will be reviewed by the multidisciplinary valve team members and the TAVR procedure will be schedule at a later date. Scheduling Notes: HISTORY Gogo Ware is an 84 year old female ( [place]) with pmhx of: HTN HLD glaucoma ( left eye completely blind) Records review Echo 04/15/2024 ( [place]): - The left ventricle is normal in size. There is mild concentric left ventricular hypertrophy. Left ventricular systolic function is normal. EF = 64 ? 5% (2D biplane) Grade I left ventricular diastolic dysfunction. - The right ventricle is normal in size. Right ventricular systolic function is normal. Estimated right ventricular systolic pressure is not reported due to an insufficient tricuspid regurgitation signal. MITRAL VALVE There is mild mitral annular calcification observed posterior. There is trace (trace - 1+) mitral valve regurgitation. The pressure half time is 96 msec. The peak mitral E/A ratio is 0.72. The average mitral E/e' ratio is 11.7. The mitral flow deceleration time is 330 msec. TRICUSPID VALVE The tricuspid valve leaflets are structurally normal. There is trace tricuspid valve regurgitation. AORTIC VALVE There is severe aortic valve stenosis caused by calcified valve and restricted opening. There is trace (trace - 1+) aortic valve regurgitation. There is severe thickening. There is severe calcification. The peak gradient is 99 mmHg (peak velocity = 498.3 cm/s). The mean gradient is 57 mmHg. The LVOT mean velocity is 60.5 cm/s. The LVOT diameter is 1.8 cm. The aortic VTI is 125.8 cm. The mean velocity in the aortic valve is 359.2 cm/s. The dimensionless valve index is 0.17. AV area is 0.45 cm? (0.24 cm?/m?) by continuity, VTI. The LVOT stroke volume index is 31 ml/m?. GFR: No recent labs available at time of review Contrast Allergy: No Anticoagulation plan N/A DX: aortic valve disorder Referring physician: Dr. Lindo DAY ONE: Dr. Amaro/Dr. Sheriff/Dr. Peace/Dr. Parr/Dr. Feliciano/Dr. Jesus/ Dr. Lr/ Dr. Wells/Dr. Aguilera (If a Saturday is needed, can schedule with Dr. Keating or Dr. Laughlin). The following testing on same day as appointment with physician: EKG/CXR/Labs (CMP; CBC with diff, PT/INR, Pro-BNP, High Sensitivity Troponin, Lipoprotein(a)-LPA) Echocardiogram CTA aorta Carotid Ultrasound DAY TWO: Left Heart catheterization: any diagnostic physician. IF CREAT is 2.0 or greater, then it should be by an Cyber Systems Administrator ONLY (Dr. Schultz, Dr. Wells, Dr. Aguilera, Dr. Lr, Dr. Jesus, Dr. Miranda, Dr. Wright, Dr. Abreu, Dr. Hook, Dr. Gimenez, Dr. Elizondo, Dr. Kidd and Dr. Peacock) DAY THREE: Nuclear Medicine- Amyloid SPECT Structural Valve Clinic appointment PFT?s (spirometry, diffusing capacity) Patient is also to be seen by Dr. Shook/Dr. Smith/Dr. Graham/Dr. Fowler/ Dr. Connell/Dr. Merida/Dr. Smart/Dr. Grace/ Dr. Doss/ Dr. Celaya /Dr. Genevieve Jimenez APRN.[facility]08-13-2024 History of Present illness Narrative* Kacy Jimenez, CATEGORY MANAGER.NAPPER GRINDER - 06/09/2024 3:06 PM EDT TAVR STRUCTURAL REVIEW FORM Orders placed by Dr. Lindo on 05/22/2024 Records Reviewed: 06/09/2024 Appt request sent: 06/09/2024 I spoke with her on the phone. She lives alone and has a friend drive her for all of her appointments. her daughter lives in [place]; the rest of her family is in [facility]. She is not interested in open hear surgery. She is very independent. She reports she doesn't have symptoms. however, I reviewed with her the results of her BNP and what this means in relation to her . She is agreeable to come for the evaluation. Records in [facility] have been reviewed. Severe . Request has been sent to the medical office scheduler who will arrange an appointment schedule. Please note it can take up to 4 weeks for scheduling to take place. Once completed, a TAVR packet and schedule will be mailed to patient's home address. PLEASE NOTE: Appointment schedule being sent to the patient will be for CONSULTATION AND TESTING. All studies will be reviewed by the multidisciplinary valve team members and the TAVR procedure will be schedule at a later date. Scheduling Notes: HISTORY Gogo Ware is an 84 year old female ( Katelyn) with pmhx of: HTN HLD glaucoma ( left eye completely blind) Records review Echo 04/15/2024 ( [place]): - The left ventricle is normal in size. There is mild concentric left ventricular hypertrophy. Leftventricular systolic function is normal. EF = 64 5% (2D biplane) Grade I left ventricular diastolicdysfunction. - The right ventricle is normal in size. Right ventricular systolic function is normal. Estimated right ventricular systolic pressure is not reported due to an insufficient tricuspid regurgitation signal. MITRAL VALVE There is mild mitral annular calcification observed posterior. There is trace (trace - 1+) mitral valve regurgitation. The pressure half time is 96 msec. The peak mitral E/A ratio is 0.72. The average mitral E/e' ratio is 11.7. The mitral flow deceleration time is 330 msec. TRICUSPID VALVE The tricuspid valve leaflets are structurally normal. There is trace tricuspid valve regurgitation. AORTIC VALVE There is severe aortic valve stenosis caused by calcified valve and restricted opening. There is trace (trace - 1+) aortic valve regurgitation. There is severe thickening. There is severe calcification. The peak gradient is 99 mmHg (peak velocity = 498.3 cm/s). The mean gradient is 57 mmHg. The LVOT mean velocity is 60.5 cm/s. The LVOT diameter is 1.8 cm. The aortic VTI is 125.8 cm. The mean velocity in the aortic valve is 359.2 cm/s. The dimensionless valve index is 0.17. AV area is 0.45 cm (0.24 cm /m ) by continuity, VTI. The LVOT stroke volume index is 31 ml/m . GFR: No recent labs available at time of review Contrast Allergy: No Anticoagulation plan N/A DX: aortic valve disorder Referring physician: Dr. Lindo DAY ONE: Dr. Amaro/Dr. Sheriff/Dr. Peace/Dr. Parr/Dr. Feliciano/Dr. Jesus/ Dr. Lr/ Dr. Wells/Dr. Aguilera (If a Saturday is needed, can schedule with Dr. Keating or Dr. Laughlin). The following testing on same day as appointment with physician: EKG/CXR/Labs (CMP; CBC with diff, PT/INR, Pro-BNP, High Sensitivity Troponin, Lipoprotein(a)-LPA) Echocardiogram CTA aorta Carotid Ultrasound DAY TWO: Left Heart catheterization: any diagnostic physician. IF CREAT is 2.0 or greater, then it should be by an Cyber Systems Administrator ONLY (Dr. Schultz, , Dr. Aguilera, Dr. Lr, Dr. Jesus, Dr. Miranda, Dr. Wright, Dr. Abreu, Dr. Hook, Dr. Gimenez, Dr. Elizondo, Dr. Jeremiah Haskins and Dr. Peacock) DAY THREE: Nuclear Medicine- Amyloid SPECT Structural Valve Clinic appointment PFT s (spirometry, diffusing capacity) Patient is also to be seen by Dr. Shook/Dr. Smith/Dr. Graham/Dr. Fowler/ Dr. Connell/Dr. Merida/Dr. Smart/Dr. Grace/ Dr. Doss/ Dr. Celaya /Dr. Genevieve Jimenez APRN.NAPPER GRINDER documented in this encounterFairfield [facility] Center07-30-2024 NoteHNO ID: [id number] Author: WALI TRIANA MD Service: ? Author Type: Physician Type: Progress Notes Filed: 05/26/2024 14:04 Note Text: Encounter Diagnosis ICD-10-CM 1. PCO (posterior capsular opacification), left H26.492 2. Pseudophakia Z96.1 3. Primary open angle glaucoma (POAG) of left eye, severe stage H40.1123 s/p PCIOL OS -- doing well, mild PCO OS option of yag OS in future if desires advanced OAG OS, IOP well controlled on current drops -- continue same as before , follows with Dr. Roslyn ashton given can follow-up me prn next visit mrx iop dfe ou I have confirmed and edited as necessary the relevant ophthalmic history, ROS, and the neuro exam findings as obtained by others. I have seen and examined this patient. I have discussed the case and the management of this patient's care with the Resident/Fellow, if applicable. I also have reviewed and agree with the assessment and plan as stated above and agree with all of its relevant components. Wali Triana, [facility]07-30-2024 History of Present illness Narrative* Wali Triana MD - 05/26/2024 2:02 PM EDT Encounter Diagnosis ICD-10-CM 1. PCO (posterior capsular opacification), left H26.492 2. Pseudophakia Z96.1 3. Primary open angle glaucoma (POAG) of left eye, severe stage H40.1123 s/p PCIOL OS -- doing well, mild PCO OS option of yag OS in future if desires advanced OAG OS, IOP well controlled on current drops -- continue same as before , follows with Dr.Perkins zeeshan ashton given can follow-up me prn next visit mrx iop dfe ou I have confirmed and edited as necessary the relevant ophthalmic history, ROS, and the neuro exam findings as obtained by others. I have seen and examined this patient. I have discussed the case and the management of this patient's care with the Resident/Fellow, if applicable. I also have reviewed and agree with the assessment and plan as stated above and agree with all of its relevant components. Wali Triana MD documented in this encounterFairfield [facility] Center07-26-2024 Telephone encounter Note * Telephone Encounter - James Lindo MD - 05/22/2024 8:08 AM EDT She gets dyspnea when over-exerting, not with ordinary activities. NT pro BNP is significantly elevated. Will refer for consideration of TAVR. Patient agreeable. [facility]07-26-20[facility] Miscellaneous Notes* Telephone Encounter - James Lindo MD - 05/22/2024 8:08 AM EDT She gets dyspnea when over-exerting, not with ordinary activities. NT pro BNP is significantly elevated. Will refer for consideration of TAVR. Patient agreeable. documented in this encounterFairfield Medical Center07-02-2024 History of Present illness Narrative* James Lindo MD - 04/28/2024 1:45 PM EDT Images from the original note were not included. [facility] Department of Cardiovascular Medicine SECTION OF CARDIOVASCULAR IMAGING OUTPATIENT VISIT DATE April 28, 2024 OUTPATIENT VISIT TYPE CONSULTATION PRIMARY CARE PHYSICIAN: To use this Smartlink, specify the provider ID whose address you want to display, e.g., .PROVADDR[1(where 1 is the provider ID). REFERRING PHYSICIAN Berta Rankin [address] [address] CHIEF COMPLAINT: Aortic stenosis HISTORY OF PRESENT ILLNESS/ NURSING INTAKE: Cardiac consultation at the request of Dr. Berta Rich. A copy of this consultation note will be provided to the requesting physician by way of shared Medical record or letter to requesting physician via [place] mail. Ms. Ware is a 84 year old female from [place], [place] here today for cardiovascular evaluation related to aortic valve stenosis and TAVR evaluation. Significant medical history includes: - Aortic valve stenosis - CAD - Hypertension - Hyperlipidemia - Glaucoma Family history is significant for: Sister: Coronary artery disease, aortic stenosis Ms. Clark states she has known for years that she had issues with her aortic valve. She underwent eye surgery on 04/15/2024. Prior to this, she underwent an echocardiogram which showed severe aortic valve stenosis caused by calcified valve and restricted opening. She was referred by VICTOR M Hercules referred the patient to [facility] imaging for TAVR workup. She reports shortness of breath on significant exertion. She denies chest pain, palpitations, edema, lightheadedness, dizziness, presyncope, and syncope at this time. PAST MEDICAL HISTORY Diagnosis Date Aortic valve stenosis Disease PROBLEM SLEEPING Essential hypertension Glaucoma Mixed hyperlipidemia PAST SURGICAL HISTORY Procedure Laterality Date PROCEDURE 2006 BOTH HIPS REPLACED PROCEDURE 2009 LASER OU FOR GLAUCOMA SOCIAL HISTORY Social History Tobacco Use Smoking status: Never Smokeless tobacco: Never Vaping Use Vaping Use: Never used Substance Use Topics Alcohol use: Never Drug use: Never FAMILY HISTORY Problem Relation Age of Onset Glaucoma Father Diabetes Father Coronary Artery Disease Sister Colon Cancer Maternal Grandmother Stroke Maternal Grandfather Blindness Other GREAT AUNT Colon Cancer Other ALLERGIES: ALLERGIES No Known Allergies MEDICATIONS: valsartan (DIOVAN) 160 mg tablet Take 0.5 tablets by mouth once daily. prednisoLONE acetate (PRED FORTE) 1 % ophthalmic suspension Use 1 Drop in the left eye four times daily for 7 days, THEN 1 Drop three times a day for 7 days, THEN 1 Drop two times a day for 7 days, THEN 1 Drop once daily for 7 days. moxifloxacin (VIGAMOX) 0.5 % ophthalmic solution Use 1 Drop in the left eye four times daily. keTORolac (ACULAR) 0.5 % ophthalmic solution Use 1 Drop in the left eye four times daily for 14 days. carvedilol (COREG) 12.5 mg tablet Take 1 tablet by mouth twice daily with meals. atorvastatin (LIPITOR) 40 mg tablet Take 1 tablet by mouth once daily. brimonidine (ALPHAGAN) 0.2 % ophthalmic solution Use 2 Drops in both eyes twice daily. DORZOLAMIDE HCL/TIMOLOL MALEAT (DORZOLAMIDE-TIMOLOL OPHTHALMIC) Use 1 Drop in eyes twice daily. aspirin, enteric coated (ASPIRIN, ENTERIC COATED) 81 mg EC tablet Take 81 mg by mouth once daily. latanoprost (XALATAN) 0.005 % ophthalmic solution Use 1 Drop in both eyes daily at bedtime. temazepam (RESTORIL) 30 mg cap Take 30 mg by mouth at bedtime as needed. (Patient not taking: Reported on 04/28/2024) REVIEW OF SYSTEMS: Positive in BOLD GENERAL: Weight loss or gain, Fever or Chills, Weakness and Sleep difficulties. HEENT: Headache, Glasses/Contacts, Eye pain, Impaired Vision, Trouble/Decreased Hearing, Ringing inEars, Nosebleeds, Dental Problems, Bleeding Gums, Dentures NECK: Swelling, Pain, Stiffness RESPIRATORY: Cough, Blood in Sputum, Shortness of breath, Wheezing, Asthma, Sleep Apnea SKIN: Rashes, Itching GASTROINTESTINAL: Trouble swallowing, Heartburn, Change in bowel habits, Blood in stool, Dark blackstools MUSCULOSKELETAL: Muscle or joint pain, Stiffness , Joint swelling NEUROLOGIC/PSYCHIATRIC: Weakness, Paralysis, Numbness, Tingling, Tremor, Nervousness, Anxiety, Depressed mood, Memory loss HEMATOLOGICAL/LYMPHATIC: Easy bruising , Easy bleeding ENDOCRINE: Heat or cold intolerance, Excessive sweating, Frequent urination, Frequent thirst PHYSICAL EXAMINATION: BP 137/66 Pulse (!) 58 Ht 165.1 cm (5' 5") Wt 73.9 kg (163 lb) SpO2 97% BMI 27.12 kg/m General: Well appearing, in no acute distress. Skin: No clubbing, no cyanosis. Eyes: Extra ocular movements intact Oropharynx: Teeth in good repair. Neck: No jugular venous distention, no carotid bruits, carotids have a normal upstroke, no palpablethyromegaly. Lungs: Clear to auscultation bilaterally, no wheezing or rhonchi. Heart: Regular rhythm, PMI not displaced, S1, S2 normal, no S3, no S4, no heaves, no rub and 3 out of 6 ejection systolic murmur radiating to the carotids Abdomen: Soft, nontender, bowel sounds normal, no palpable organomegaly, no bruits. Extremities: No peripheral edema . Neuro: Oriented to person, place and time, alert, cooperative, gait coordinated. CARDIOVASCULAR MEDICINE TESTING: Last ECHO Result Conclusion ECHO Collected: 04/15/2024 11:23 AM (Final result) Impression: CONCLUSIONS: - Technically difficult exam due to body habitus. - Exam indication: Initial evaluation valvular heart disease - The left ventricle is normal in size. There is mild concentric left ventricular hypertrophy. Left ventricular systolic function is normal. EF = 64 5% (2D biplane) Grade I left ventricular diastolic dysfunction. - The right ventricle is normal in size. Right ventricular systolic function is normal. - There is severe aortic valve stenosis caused by calcified valve and restricted opening. AV area is 0.45 cm (0.24 cm /m ) by continuity, VTI. The peak gradient is 99 mmHg, the mean gradient is 57 mmHg and the dimensionless valve index is 0.17. - The patient has not had a prior CC echocardiographic exam for comparison. * * * Final * * * I have personally reviewed the Electrocardiogram and Echocardiogram. IMPRESSION: Ms. Ware is a 84 year old female with severe aortic stenosis here for further evaluation. Past medical history includes but is not limited to: Aortic stenosis Moderate CAD, left heart cath in 2018, FFR negative Hypertension Hyperlipidemia No significant cardiac complaints at present. Upon questioning, does endorse stable longstanding shortness of breath if she were to overexert herself. No recent change. She is quite active and still drives and does own groceries. Originally from [place], states she does not have any family in the [place] a few years ago. Well compensated on examination without evidence of heart failure. Signs of significant aortic stenosis as above. Discussed natural history of aortic stenosis and possible symptoms. Discussed management options including aortic valve replacement. She is a bit hesitant about the prospect of an aortic valve replacement at this stage as feels she is doing very well for age. We will get an NT proBNP today and have a discussion again on the phone. She knows to reach out to me if she develops any symptoms. I personally interviewed, confirmed and edited the above information as obtained by others. CONTACT INFORMATION: James Lindo MD, PhD, FACC Staff, Section of Cardiovascular Imaging Department of Cardiovascular Medicine [facility] documented in this encounterFairfield Medical Center07-02-2024 NoteHNO ID: [id number] Author: JAMES LINDO MD Service: ? Author Type: Physician Type: Progress Notes Filed: 04/28/2024 15:32 Note Text: [facility] Department of Cardiovascular Medicine SECTION OF CARDIOVASCULAR IMAGING OUTPATIENT VISIT DATE April 28, 2024 OUTPATIENT VISIT TYPE CONSULTATION PRIMARY CARE PHYSICIAN: To use this Smartlink, specify the provider ID whose address you want to display, e.g., .PROVADDR[1 (where 1 is the provider ID). REFERRING PHYSICIAN Berta Rankin [address] [place] [id number] CHIEF COMPLAINT: Aortic stenosis HISTORY OF PRESENT ILLNESS/ NURSING INTAKE: Cardiac consultation at the request of Dr. Berta Rich. A copy of this consultation note will be provided to the requesting physician by way of shared Medical record or letter to requesting physician via [place] mail. Ms. Ware is a 84 year old female from [place], [place] here today for cardiovascular evaluation related to aortic valve stenosis and TAVR evaluation. Significant medical history includes: - Aortic valve stenosis - CAD - Hypertension - Hyperlipidemia - Glaucoma Family history is significant for: Sister: Coronary artery disease, aortic stenosis Ms. Clark states she has known for years that she had issues with her aortic valve. She underwent eye surgery on 04/15/2024. Prior to this, she underwent an echocardiogram which showed severe aortic valve stenosis caused by calcified valve and restricted opening. She was referred by VICTOR M Hercules referred the patient to [facility] for TAVR workup. She reports shortness of breath on significant exertion. She denies chest pain, palpitations, edema, lightheadedness, dizziness, presyncope, and syncope at this time. PAST MEDICAL HISTORY Diagnosis Date Aortic valve stenosis Disease PROBLEM SLEEPING Essential hypertension Glaucoma Mixed hyperlipidemia PAST SURGICAL HISTORY Procedure Laterality Date PROCEDURE 1999, 2006 BOTH HIPS REPLACED PROCEDURE 2009 LASER OU FOR GLAUCOMA SOCIAL HISTORY Social History Tobacco Use Smoking status: Never Smokeless tobacco: Never Vaping Use Vaping Use: Never used Substance Use Topics Alcohol use: Never Drug use: Never FAMILY HISTORY Problem Relation Age of Onset Glaucoma Father Diabetes Father Coronary Artery Disease Sister Colon Cancer Maternal Grandmother Stroke Maternal Grandfather Blindness Other GREAT AUNT Colon Cancer Other ALLERGIES: ALLERGIES No Known Allergies MEDICATIONS: valsartan (DIOVAN) 160 mg tablet Take 0.5 tablets by mouth once daily. prednisoLONE acetate (PRED FORTE) 1 % ophthalmic suspension Use 1 Drop in the left eye four times daily for 7 days, THEN 1 Drop three times a day for 7 days, THEN 1 Drop two times a day for 7 days, THEN 1 Drop once daily for 7 days. moxifloxacin (VIGAMOX) 0.5 % ophthalmic solution Use 1 Drop in the left eye four times daily. keTORolac (ACULAR) 0.5 % ophthalmic solution Use 1 Drop in the left eye four times daily for 14 days. carvedilol (COREG) 12.5 mg tablet Take 1 tablet by mouth twice daily with meals. atorvastatin (LIPITOR) 40 mg tablet Take 1 tablet by mouth once daily. brimonidine (ALPHAGAN) 0.2 % ophthalmic solution Use 2 Drops in both eyes twice daily. DORZOLAMIDE HCL/TIMOLOL MALEAT (DORZOLAMIDE-TIMOLOL OPHTHALMIC) Use 1 Drop in eyes twice daily. aspirin, enteric coated (ASPIRIN, ENTERIC COATED) 81 mg EC tablet Take 81 mg by mouth once daily. latanoprost (XALATAN) 0.005 % ophthalmic solution Use 1 Drop in both eyes daily at bedtime. temazepam (RESTORIL) 30 mg cap Take 30 mg by mouth at bedtime as needed. (Patient not taking: Reported on 04/28/2024) REVIEW OF SYSTEMS: Positive in BOLD GENERAL: Weight loss or gain, Fever or Chills, Weakness and Sleep difficulties. HEENT: Headache, Glasses/Contacts, Eye pain, Impaired Vision, Trouble/Decreased Hearing, Ringing in Ears, Nosebleeds, Dental Problems, Bleeding Gums, Dentures NECK: Swelling, Pain, Stiffness RESPIRATORY: Cough, Blood in Sputum, Shortness of breath, Wheezing, Asthma, Sleep Apnea SKIN: Rashes, Itching GASTROINTESTINAL: Trouble swallowing, Heartburn, Change in bowel habits, Blood in stool, Dark black stools MUSCULOSKELETAL: Muscle or joint pain, Stiffness , Joint swelling NEUROLOGIC/PSYCHIATRIC: Weakness, Paralysis, Numbness, Tingling, Tremor, Nervousness, Anxiety, Depressed mood, Memory loss HEMATOLOGICAL/LYMPHATIC: Easy bruising , Easy bleeding ENDOCRINE: Heat or cold intolerance, Excessive sweating, Frequent urination, Frequent thirst PHYSICAL EXAMINATION: BP 137/66 Pulse (!) 58 Ht 165.1 cm (5' 5") Wt 73.9 kg (163 lb) SpO2 97% BMI 27.12 kg/m? General: Well appearing, in no acute distress. Skin: No clubbing, no cyanosis. Eyes: Extra ocular movements intact Oropharynx: Teeth in good repair. Neck: No jugular venous di (more content not included)...[facility]06-27-2024 Telephone encounter Note* Telephone Encounter - Azul Madrigal APRN.CNP - 04/23/2024 2:41 PM EDT I called the patient to discuss her upcoming appointments with the dermatology physician assistant to evaluate for possible TAVR. The patient was agreeable to the date and time. Ms Ware asked if I can call her friend Kenisha who will be bringing her to these appointments and I left a message on [employer] with the appointment times and desk area. I've also left my office phone number to go over the directions and the appointment schedule with her as well if she has a question or concern about where to come for the appointments. Also of note, Dr Lindo's district administrative assistant left a message for Kenisha to call her to go overthe appointments and to assist her with the directions. SIERRA Garza [facility] Work Phone: [phone] Miscellaneous Notes* Telephone Encounter - Azul Madrigal APRN.CNP - 04/23/2024 2:41 PM EDT I called the patient to discuss her upcoming appointments with the dermatology physician assistant to evaluate for possible TAVR. The patient was agreeable to the date and time. Ms Ware asked if I can call her friend Kenisha who will be bringing her to these appointments and I left a message on [email or web address] with the appointment times and desk area. I've also left my office phone number to go over the directions and the appointment schedule with her as well if she has a question or concern about where to come for the appointments. Also of note, Dr Lindo's district administrative assistant left a message for Kenisha to call her to go overthe appointments and to assist her with the directions. Azul Madrigal APRN-MEDICAL RECORDS SPECIALIST documented in this encounterFairfield Medical Center06-27-2024 Telephone encounter Note * Telephone Encounter - Vitor Toth - 04/23/2024 9:55 AM EDT Called patient's friend - Kenisha Hedrick, to provide appointment information. There was no answer,left voicemail requesting call back [facility]06-27-2024 Miscellaneous Notes* Telephone Encounter - Vitor Toth - 04/23/2024 9:55 AM EDT Called patient's friend - Kenisha Hedrick, to provide appointment information. There was no answer,left voicemail requesting call back documented in this encounterFairfield Medical Center06-25-2024 NoteHNO ID: [id number] Author: WALI TRIANA MD Service: ? Author Type: Physician Type: Progress Notes Filed: 04/21/2024 13:21 Note Text: (Z96.1) Pseudophakia (primary encounter diagnosis) Comment: 1 DAY POST-OP CATARACT SURGERY OS -Doing well - PREDNISOLONE ACETATE 1% QID operative eye - Ketorolac 0.5% QID operative eye - Routine precautions discussed - Shield at bedtime - No strenuous activity - Call AAMIR if new signs/symptoms/pain/vision loss - Follow up 1 week If vision is normal, no new symptoms can cancel 1 week and return for 1 month visit (will taper pf 3-2-1 at home) NEXT VISIT ORDERS 1 WEEK POST-OP: VA OU QUICK MRX OPERATIVE EYE ONLY IOP OU NEXT VISIT ORDERS 1 MONTH POST-OP VISION OU MRX OU IOP OU DILATED FUNDUS EXAM OPERATIVE EYE I have confirmed and edited as necessary the relevant ophthalmic history, ROS, and the neuro exam findings as obtained by others. I have seen and examined this patient. I have discussed the case and the management of this patient's care with the Resident/Fellow, if applicable. I also have reviewed and agree with the assessment and plan as stated above and agree with all of its relevant components. Wali Triana, [facility]06-25-2024 History of Present illness Narrative* Wali Triana MD - 04/21/2024 1:20 PM EDT (Z96.1) Pseudophakia (primary encounter diagnosis) Comment: 1 DAY POST-OP CATARACT SURGERY OS -Doing well - PREDNISOLONE ACETATE 1% QID operative eye - Ketorolac 0.5% QID operative eye - Routine precautions discussed - Shield at bedtime - No strenuous activity - Call AAMIR if new signs/symptoms/pain/vision loss - Follow up 1 week If vision is normal, no new symptoms can cancel 1 week and return for 1 month visit (will taper pf 3-2-1 at home) NEXT VISIT ORDERS 1 WEEK POST-OP: VA OU QUICK MRX OPERATIVE EYE ONLY IOP OU NEXT VISIT ORDERS 1 MONTH POST-OP VISION OU MRX OU IOP OU DILATED FUNDUS EXAM OPERATIVE EYE I have confirmed and edited as necessary the relevant ophthalmic history, ROS, and the neuro exam findings as obtained by others. I have seen and examined this patient. I have discussed the case and the management of this patient's care with the Resident/Fellow, if applicable. I also have reviewed and agree with the assessment and plan as stated above and agree with all of its relevant components. Wali Triana MD documented in this encounterFair[facility]06-[facility]24 Telephone encounter Note * Telephone Encounter - Azul Madrigal APRN.CNP - 04/21/2024 8:48 AM EDT Called [facility] to schedule consult for consideration of TAVR. Scheduled for Sunday April 28, 2024. Attempted to call the patient to discuss April appointment as next available is not until July 2024. NO voicemail, NO answer. I will send a message to Dr Triana to let patient know of appt during her post op appt and if she has a concern or question, she can call me to reschedule if needed. SIERRA Garza [facility]06-25-2024 Miscellaneous Notes* Telephone Encounter - Azul Madrigal APRN.CNP - 04/21/2024 8:48 AM EDT Called [facility] to schedule consult for consideration of TAVR. Scheduled for Sunday April 28, 2024. Attempted to call the patient to discuss April appointment as next available is not until July 2024. NO voicemail, NO answer. I will send a message to Dr Triana to let patient know of appt during her post op appt and if she has a concern or question, she can call me to reschedule if needed. SIERRA Garza documented in this encounterFairfield [facility] Center06-20-2024 Telephone encounter Note * Telephone Encounter - Berta Rich PA-C - 04/16/2024 2:54 PM EDT Summary: Cardiac Surgery Referral Referral sent to severe aortic stenosis. Pt would like to proceed with TAVR. [facility] Miscellaneous Notes* Telephone Encounter - Berta Rich PA-C - 04/16/2024 2:54 PM EDTSummary: Cardiac Surgery Referral Referral sent to severe aortic stenosis. Pt would like to proceed with TAVR. documented in this encounterFairfield [facility] Center06-17-2024 Telephone encounter Note * Telephone Encounter - Berta Rich PA-C - 04/13/2024 8:15 AM EDT Summary: ECHO APPOINTMENT Called pt, and gave instructions and directions for echo on 04/15/24. [facility] Work Phone: [phone]) 383-9906680200-06-1618 Miscellaneous Notes* Telephone Encounter - Berta Rich PA-C - 04/13/2024 8:15 AM EDTSummary: ECHO APPOINTMENT Called pt, and gave instructions and directions for echo on 04/15/24. documented in this encounterFairfield [facility] Center06-10-2024 Telephone encounter Note * Telephone Encounter - Wali Triana MD - 04/06/2024 8:31 PM EDT I sent her prescriptions to her pharmacy but nothing starts until after the surgery is complete (the day of surgery) [facility] Miscellaneous Notes* Telephone Encounter - Wali Triana MD - 04/06/2024 8:31 PM EDT I sent her prescriptions to her pharmacy but nothing starts until after the surgery is complete (the day of surgery) * Telephone Encounter - Idalia Bermeo - 04/06/2024 2:59 PM EDT Patient's friend calling to make sure she won't need to take drops BEFORE surgery. Also, if she will be on drops after surgery will she be given those or will you send Rx now to pharmacy? Surgery 04/20/24 Wali Triana MD filed at 01/17/2024 11:03 AM Status: Signed Encounter Diagnosis ICD-10-CM 1. 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 Primary open angle glaucoma (POAG) of left eye, severe stage H40.[address] Tarun Mcgowan for cat eval Cataract Presurgical Documentation Current Visual Acuity Right Eye Distance CC NLP Left Eye Distance CC 20/40 Best Corrected Vision Left Eye 20/40- Glare Testing: Left Eye Off 20/50 Left Eye Low 20/80 Left Eye Medium 20/125 Left Eye High 20/150 Visual Function: Gogo Ware states that the decline in vision from the cataract impedes herabilities as listed in the HPI, as well as other activities of daily living. Gogo Ware has confirmed that she is no longer able to function adequately on a day-to-day basis because of her current visual condition. Further, it is my medical opinion that the cataract is the primary cause, or at least a significantly contributory cause of her visual dysfunction. With uncomplicated cataract surgery and lens implantation, it is my expectation that her visual function and quality of life will improve, significantly. The risks, benefits, alternatives, personnel and complications of cataract surgery with lens implantation were discussed with Gogo Ware in detail. she appeared to understand and asked that Iproceed with plans for surgery. Assessment: Visually significant cataract BOTH EYES. Discussed IOL options - patient elects monofocal IOL - Dilation: 7mm - Flomax/alpha-madhu? 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 Mcgowan -Reports lasers in both eye for glaucoma -OD NLP with phacomorphic component and NVI Dry eye syndrome OU Blepharitis OU -Rec AFTs and warm compress offer phaco/IOL OS nervous about surgery favor LMA as brunescent cataract, + PXF discussed increased risk of multiple surgeries, possible PPV jg to perform target plano documented in this encounterFairfield Medical Center06-10-2024 Telephone encounter Note * Telephone Encounter - Amrita Perea LPN - 04/06/2024 3:07 PM EDT Received last office visit and cardiac testing. Original sent to [facility] through Onbase scanning. Amrita Perea LPN [facility]06-10[facility] Miscellaneous Notes* Telephone Encounter - Amrita Perea LPN - 04/06/2024 3:07 PM EDT Received last office visit and cardiac testing. Original sent to [facility] through Onbase scanning. Amrita Perea LPN * Telephone Encounter - Amrita Perea LPN - 04/06/2024 2:16 PM EDT Fax request sent to [facility] requesting last office visit and cardiac testing for upcoming surgery 04/20/24. .Amrita Perea LPN * Telephone Encounter - Dorothy Han APRN.MEDICAL RECORDS SPECIALIST - 04/06/2024 1:56 PM EDT Please request last cardiac OV and testing from [facility]. DOS 04/20/2024. documented in this encounterFairfield Medical Center06-10-2024 Telephone encounter Note * Telephone Encounter - Idalia Bermeo - 04/06/2024 2:59 PM EDT Patient's friend calling to make sure she won't need to take drops BEFORE surgery. Also, if she will be on drops after surgery will she be given those or will you send Rx now to pharmacy? Surgery 04/20/24 Wali Triana MD filed at 01/17/2024 11:03 AM Status: Signed Encounter Diagnosis ICD-10-CM 1. 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 Primary open angle glaucoma (POAG) of left eye, severe stage H40.[address] Tarun Mcgowan for cat eval Cataract Presurgical Documentation Current Visual Acuity Right Eye Distance CC NLP Left Eye Distance CC 20/40 Best Corrected Vision Left Eye 20/40- Glare Testing: Left Eye Off 20/50 Left Eye Low 20/80 Left Eye Medium 20/125 Left Eye High 20/150 Visual Function: Gogo Ware states that the decline in vision from the cataract impedes herabilities as listed in the HPI, as well as other activities of daily living. Gogo Ware has confirmed that she is no longer able to function adequately on a day-to-day basis because of her current visual condition. Further, it is my medical opinion that the cataract is the primary cause, or at least a significantly contributory cause of her visual dysfunction. With uncomplicated cataract surgery and lens implantation, it is my expectation that her visual function and quality of life will improve, significantly. The risks, benefits, alternatives, personnel and complications of cataract surgery with lens implantation were discussed with Gogo Normanruth in detail. she appeared to understand and asked that Iproceed with plans for surgery. Assessment: Visually significant cataract BOTH EYES. Discussed IOL options - patient elects monofocal IOL - Dilation: 7mm - Flomax/alpha-madhu? 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 Mcgowan -Reports lasers in both eye for glaucoma -OD NLP with phacomorphic component and NVI Dry eye syndrome OU Blepharitis OU -Rec AFTs and warm compress offer phaco/IOL OS nervous about surgery favor LMA as brunescent cataract, + PXF discussed increased risk of multiple surgeries, possible PPV jg to perform target plano [facility] Work Phone: [phone]) 386-378006-10-2024 Telephone encounter Note* Telephone Encounter - Amrita Perea LPN - 04/06/2024 2:16 PM EDT Fax request sent to [facility] requesting last office visit and cardiac testing for upcoming surgery 04/20/24. .Amrita Perea LPN [facility]06-10-[facility] Telephone encounter Note* Telephone Encounter - Dorothy Han APRN.MEDICAL RECORDS SPECIALIST - 04/06/2024 1:56 PM EDT Please request last cardiac OV and testing from [facility]. DOS 04/20/2024. [facility] Instructions* Patient Instructions* Dorothy Han APRN.MEDICAL RECORDS SPECIALIST - 04/06/2024 1:09 PM EDT PATIENT PREOPERATIVE INSTRUCTIONS No ref. provider found has scheduled you for your procedure at this surgery center: [facility]: [phone] --[facility], [address], [place] [address]. Please read below carefully for your personalized instructions. Arrival Time for Surgery: - The Surgery Center or hospital where you are having surgery will call the afternoon before surgery (or Saturday for Saturday surgery) with a scheduled arrival time. - If you have not heard by 4 pm, please contact the surgery center above. Please be aware that emergency situations arise, which may delay or change your surgical time. If this happens, we will notify you as soon as possible and regret any inconvenience Dietary Restrictions: - No solid food after midnight. - You may have 12 ounces of clear liquids (water, clear juices such as apple juice or gatorade, carbonated beverages, clear tea, black coffee, jello) until 2 hours before scheduled arrival at facility. - no milk / coffee creamer - no pulp juices Medications: Unless instructed differently below, stay on all of your medications until your surgery. Approved medications to take the morning of surgery with a sip of water: All rx meds are okay If you start any new medications after today's visit, please contact the surgeon's office. Blood Thinning Medications: You do not need to hold blood thinners for cataract surgery Important Reminders: - If you are prescribed inhalers for breathing, continue using them. - Candy, mints, and tobacco products are NOT permitted the morning of surgery. - Hearing aids, dentures and glasses may be worn the morning of surgery. - NO jewelry, body piercings, makeup, hairpins or contacts are to be worn the day of surgery. If you develop symptoms such as a fever, cold, or flu, or have other changes to your health within TWO DAYS of scheduled surgery or the morning of surgery, please contact the surgery center above. Personal Belongings: -Please have photo ID and insurance cards. -If you do not have a copy of advance directives on file with us, please bring a copy with you on the day of surgery. - Leave ALL valuables and money at home or with family members. For Outpatient Procedures: - YOU MUST HAVE A RESPONSIBLE CHRISTMAS TREE GRADER TAKE YOU HOME. A MECHANICAL APPRENTICE OR EXCELSIOR MACHINE FEEDER CANNOT BE MADE A RESPONSIBLE CHRISTMAS TREE GRADER. - We recommend that a responsible person stays with you overnight to take care of you. - You cannot stay in a hotel alone after outpatient surgery. You will not be permitted to have yoursurgery, if you do not have someone to take care of you. If you already have an Advance Directive, please fax a copy to [phone] or email to for it to be added to your chart. If you do not have an Advance Directive, you can find the appropriate form and more information at [email or web address]. We recommend that youcomplete the Advance Directive form found on the website and bring it with you the day of your surgery. It can be witnessed and scanned into your chart that day. Dorothy Han APRN.CNP documented in this encounterFairfield Medical Center06-10-2024 History and physical note * Dorothy Han APRN.CNP - 04/06/2024 1:08 PM EDT Images from the original note were not included. HISTORY AND PHYSICAL EXAMINATION SERVICE DATE: 04/06/2024 SERVICE TIME: 9:23 AM PRIMARY CARE PHYSICIAN: No primary care provider on file. Assessment Patient has the following medical conditions which may affect guille-operative course: Insomnia Assessment: controlled on rx Essential (primary) hypertension Assessment: controlled on rx Last 14 BP Last 14 Encounter BP Readings: Date: BP: 04/06/2024 124/80 03/24/2019 182/94 10/01/2018 183/85 04/01/2018 134/80 12/30/2017 140/62 12/23/2017 162/74 12/23/2017 142/82[ (from Extended Vitals)[ 08/11/2015 138/76 07/28/2015 162/74[bP angie average[ 11/01/2014 148/82 10/29/2014 150/82 Mixed hyperlipidemia Assessment: c/w statin Glaucoma Assessment: controlled on rx Severe aortic stenosis by prior echocardiogram Assessment: SEVERE, pt declined TAVR at last cardiac OV 03/26/24. Pt states she is asymptomatic.EMAIL TO ANESTHESIA. 03/16/2024 Eliana Whipple PA-C 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 (HCC) Assessment: moderate 3 vessel disease, pt denies any intervention. Pt denies any symptoms of angina. 03/16/2024 Eliana Whipple PA-C Mishra Activity Status Index: METS: Climb a flight of stairs or walk up a hill (5.50 METs) DASI Score: 5.5 Patient denies any chest pain or undue shortness of breath with the above physical activity. Clinical Frailty Scale: 3. Well, with treated comorbid disease STOP-Bang Score: Has or is being treated for high blood pressure Patient over 50 years old Denies snoring loudly Denies feeling tired, fatigued, or sleepy during the daytime Has not been observed to stop breathing or choking/gasping during sleep BMI less than or equal to 35 kg/m^2 Does not have a large neck Non-male patient STOP-Bang Score: 2 [id number] Score: Age: >=75 Sex: female CHF history: No Hypertension history: Yes Stroke/TIA/thromboembolism history: No Vascular disease history: Yes Diabetes history: No [id number] Score: 5 ARISCAT Score: Age: >80 Preoperative SpO2: >=96% Respiratory infection in the last month: No Preoperative anemia: Yes Surgical incision: peripheral Duration of surgery: <2 hrs Emergency procedure: No ARISCAT Score: 27 ANESTHESIA FINDINGS: Intubation History: No history of difficult intubation Significant Anesthesia Considerations: none Airway History: No history of difficult airway I - PHYSICAL EVALUATION AIRWAY Patient intubated: No. Tracheostomy tube not present Mallampati: III. TM distance: >3 FB. Neck ROM: full ROM without neurological symptoms. Mouth opening: adequate. Short neck: no. Thick neck: yes Dawson present: no Lip Bite Test: I Microretrognathia/Micronagthia/Recessed Chin: No DENTAL Dental findings: teeth intact. Additional comments: +crowns/back. II - ANESTHESIA PLAN Anesthetic Plan: other Beta Madhu Monitoring Plan Post Procedure Analgesic Plan Informed Consent Anesthetic risks, benefits, alternatives, personnel and consent discussed: yes. Patient / Responsible Alliance Party agrees to proceed: yes Patient / Surrogate agrees to blood products: blood products not planned Discussed the possibility of lip / dental damage: yes Prepared for Surgery: optimally prepared for surgery, pending [see comment]. Email to anesthesia ofelia chart SEVERE aortic stenosis CONSULTS: The following consults have been initiated at this time: anesthesia. Planned Anesthetic: other anesthesia choice The Following Tests/Procedures Have Been Initiated: No orders of the defined types were placed in this encounter. REASON FOR VISIT: Gogo Ware is a 84 year old female who is scheduled for Procedure(s): PHACOEMULSIFICATION CATARACT IMPLANT INTRAOCULAR LENS W/O ENDOSCOPIC CYCLOPHOTOCOAGULATION (Left) at the request of Wali Calvert MD for consultation. My final recommendation will be communicated back to the requesting physician by way of shared medical record or letter. Subjective 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) Insomnia Glaucoma Severe Aortic Stenosis By Prior Echocardiogram COVID-19 Immunization Status Overdue - Covid-19 Vaccine (2022- season) Never done No completion, postpone, frequency change, or communication history exists for this topic. CHIEF COMPLAINT: Pre-op exam HPI: Gogo Ware is a 84 year old seen for PAC due to scheduled above surgery because of cataracts. 01/16/2024, Dr. Triana Cataract Presurgical Documentation Current Visual Acuity Right Eye Distance CC NLP Left Eye Distance CC 20/40 Best Corrected Vision Left Eye 20/40- Glare Testing: Left Eye Off 20/50 Left Eye Low 20/80 Left Eye Medium 20/125 Left Eye High 20/150 Visual Function: Gogo Ware states that the decline in vision from the cataract impedes herabilities as listed in the HPI, as well as other activities of daily living. Gogo Ware has confirmed that she is no longer able to function adequately on a day-to-day basis because of her current visual condition. Further, it is my medical opinion that the cataract is the primary cause, or at least a significantly contributory cause of her visual dysfunction. With uncomplicated cataract surgery and lens implantation, it is my expectation that her visual function and quality of life will improve, significantly. REVIEW OF SYSTEMS: General: No weight loss, malaise or fevers. Neurological: No history of TIA's, stroke, NAPPER GRINDER tumor, impaired sensorium, hemiplegia, paraplegia orquadraplegia. No neurological symptoms or problems. Respiratory: No history of current cough or dyspnea, or pneumonia in the past 6 weeks. No history of respiratory/pulmonary symptoms or problems. Cardiovascular: Positive for: anticoagulation therapy (ASA), CAD, hyperlipidemia (on rx) and hypertension (on rx) Patient's last office visit The following tests and/or procedures were not performed: cardiac stents. Negative for: arrhythmia, atrial fibrillation, chest pain, CHF, congenital heart defect, DVT/PE, recent IA, murmur/valvular heart disease, PVD, open heart surgery and valve surgery. GI: No history of GI symptoms or problems. No history of esophageal varices, recent ascites, or ETOH greater than 2 drinks per day. : No history of dysuria, frequency or incontinence, stones or chronic kidney disease. No difficulty urinating, nocturia > 1 time per night or hematuria. 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 Endocrine: No history of diabetes. Has not taken steroids within the past 30 days. No history of endocrinological symptoms or problems. Hematology: Positive for: bruises/bleeds easily and chronic anti-coagulation/platelet meds. Patient is on anti-coagulation/platelet medication(s): Aspirin. Negative for: anemia and transfusion of at least 4 units within 72 hours prior to surgery. Oncology: No history of CA metastasis, chemo within 30 days, or radiotherapy within 90 days. No history of oncological symptoms or problems. Psych: +insomnia, on rx. No history of psychiatric symptoms or problems. Musculoskeletal: Negative for joint pain or swelling, back pain or muscle pain. Skin: Negative for lesions, rash and itching. PAST MEDICAL HISTORY Diagnosis Date Disease PROBLEM SLEEPING Glaucoma PAST SURGICAL HISTORY Procedure Laterality Date PROCEDURE 1999, 2006 BOTH HIPS REPLACED PROCEDURE 2009 LASER OU FOR GLAUCOMA FAMILY HISTORY Problem Relation Age of Onset Glaucoma Father Diabetes Father Colon Cancer Maternal Grandmother Stroke Maternal Grandfather Blindness Other GREAT AUNT Colon Cancer Other Social History Tobacco Use Smoking status: Never Smokeless tobacco: Never Vaping Use Vaping Use: Never used Substance Use Topics Alcohol use: Never Drug use: Never Prior to Admission medications as of 04/07/24 0902 Medication Sig Last Dose Taking carvedilol (COREG) 12.5 mg tablet Take 1 tablet by mouth twice daily with meals. Taking Yes valsartan (DIOVAN) 160 mg tablet Take 1 tablet by mouth once daily. Patient taking differently: Take 80 mg by mouth once daily. Taking Yes atorvastatin (LIPITOR) 40 mg tablet Take 1 tablet by mouth once daily. Taking Yes brimonidine (ALPHAGAN) 0.2 % ophthalmic solution Use 2 Drops in both eyes twice daily. Taking Yes DORZOLAMIDE HCL/TIMOLOL MALEAT (DORZOLAMIDE-TIMOLOL OPHTHALMIC) Use 1 Drop in eyes twice daily. Taking Yes aspirin, enteric coated (ASPIRIN, ENTERIC COATED) 81 mg EC tablet Take 81 mg by mouth once daily. Taking Yes temazepam (RESTORIL) 30 mg cap Take 30 mg by mouth at bedtime as needed. Taking Yes latanoprost (XALATAN) 0.005 % ophthalmic solution Use 1 Drop in both eyes daily at bedtime. Taking Yes moxifloxacin (VIGAMOX) 0.5 % ophthalmic solution Use 1 Drop in the left eye four times daily. prednisoLONE acetate (PRED FORTE) 1 % ophthalmic suspension Use 1 Drop in the left eye four times daily for 7 days, THEN 1 Drop three times a day for 7 days, THEN 1 Drop two times a day for 7 days, THEN 1 Drop once daily for 7 days. keTORolac (ACULAR) 0.5 % ophthalmic solution Use 1 Drop in the left eye four times daily for 14 days. Medication Comments documented by Cari Roque COT on 01/05/2013 at 1354. PT STATES SHE USES ANOTHER DROP, GREEN TOP, AT NIGHT OU ALLERGIES No Known Allergies Objective PHYSICAL EXAM: General: alert and oriented (x3) and healthy appearance. Pertinent negatives noted - not distressed. Skin: normal color, no rash or lesions. HEENT: EOM intact and pupils equal round. Pertinent negatives noted - no carotid bruit. Cardiovascular: Pulse characterized as regular.Positive for murmur. Respiratory: normal breath sounds, no wheezes or crackles. No chest wall deformity or tenderness. Abdomen: soft. Pertinent negatives noted - not tender. Extremities: no deformity, no edema or tenderness, no joint swelling or clubbing. Neurological: normal cognition and motor skills. Gait normal. No weakness or sensory deficit. PAIN ASSESSMENT: VITALS: BP 124/80 Pulse 60 Temp (Src) 98.6 (Temporal) Resp 14 Ht 5' 5" (1.65m) Wt 168 lb (76.2kg) SpO2 98% BMI 27.96 kg/(m^2). Diagnostic tests reviewed for today's visit: Lab Value Units Date High Low HB No results within date range. HCT No results within date range. WBC No results within date range. PLT No results within date range. NA No results within date range. K No results within date range. GLUC No results within date range. BUN No results within date range. CREAT No results within date range. PTSEC No results within date range. INR No results within date range. APTT No results within date range. ALT No results within date range. AST No results within date range. TBILI No results within date range. TSH No results within date range. Lab Value Units Date High Low HCGQT No results within date range. UHCG No results within date range. HCG, BODY* No results within date range. Lab Value Units Date High Low ABORHD No results within date range. ABSCREEN No results within date range. No results found for: "HBA1C" No results found for this or any previous visit (from the past 8760 hour(s)). No results found for this or any previous visit (from the past 33700 hour(s)). Instructions Given to Patient: Instructions located in the after visit summary. Patient given verbal and written preop instructions and voices comprehension and compliance. SIGNATURE: Dorothy Han APRN.CNP PATIENT NAME: Gogo Ware DATE: April 06, 2024 TIME: 1:08 PM PAGER/CONTACT #: [facility]06-10-2024 History and physical note* Dorothy Han APRN.CNP - 04/06/2024 1:08 PM EDT Images from the original note were not included. HISTORY AND PHYSICAL EXAMINATION SERVICE DATE: 04/06/2024 SERVICE TIME: 9:23 AM PRIMARY CARE PHYSICIAN: No primary care provider on file. Assessment Patient has the following medical conditions which may affect guille-operative course: Insomnia Assessment: controlled on rx Essential (primary) hypertension Assessment: controlled on rx Last 14 BP Last 14 Encounter BP Readings: Date: BP: 04/06/2024 124/80 03/24/2019 182/94 10/01/2018 183/85 04/01/2018 134/80 12/30/2017 140/62 12/23/2017 162/74 12/23/2017 142/82[ (from Extended Vitals)[ 08/11/2015 138/76 07/28/2015 162/74[bP angie average[ 11/01/2014 148/82 10/29/2014 150/82 Mixed hyperlipidemia Assessment: c/w statin Glaucoma Assessment: controlled on rx Severe aortic stenosis by prior echocardiogram Assessment: SEVERE, pt declined TAVR at last cardiac OV 03/26/24. Pt states she is asymptomatic.EMAIL TO ANESTHESIA. 03/16/2024 Eliana Whipple PA-C 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 (HCC) Assessment: moderate 3 vessel disease, pt denies any intervention. Pt denies any symptoms of angina. 03/16/2024 Eliana Whipple PA-C Mishra Activity Status Index: METS: Climb a flight of stairs or walk up a hill (5.50 METs) DASI Score: 5.5 Patient denies any chest pain or undue shortness of breath with the above physical activity. Clinical Frailty Scale: 3. Well, with treated comorbid disease STOP-Bang Score: Has or is being treated for high blood pressure Patient over 50 years old Denies snoring loudly Denies feeling tired, fatigued, or sleepy during the daytime Has not been observed to stop breathing or choking/gasping during sleep BMI less than or equal to 35 kg/m^2 Does not have a large neck Non-male patient STOP-Bang Score: 2 [id number] Score: Age: >=75 Sex: female CHF history: No Hypertension history: Yes Stroke/TIA/thromboembolism history: No Vascular disease history: Yes Diabetes history: No [id number] Score: 5 ARISCAT Score: Age: >80 Preoperative SpO2: >=96% Respiratory infection in the last month: No Preoperative anemia: Yes Surgical incision: peripheral Duration of surgery: <2 hrs Emergency procedure: No ARISCAT Score: 27 ANESTHESIA FINDINGS: Intubation History: No history of difficult intubation Significant Anesthesia Considerations: none Airway History: No history of difficult airway I - PHYSICAL EVALUATION AIRWAY Patient intubated: No. Tracheostomy tube not present Mallampati: III. TM distance: >3 FB. Neck ROM: full ROM without neurological symptoms. Mouth opening: adequate. Short neck: no. Thick neck: yes Dawson present: no Lip Bite Test: I Microretrognathia/Micronagthia/Recessed Chin: No DENTAL Dental findings: teeth intact. Additional comments: +crowns/back. II - ANESTHESIA PLAN Anesthetic Plan: other Beta Madhu Monitoring Plan Post Procedure Analgesic Plan Informed Consent Anesthetic risks, benefits, alternatives, personnel and consent discussed: yes. Patient / Responsible Alliance Party agrees to proceed: yes Patient / Surrogate agrees to blood products: blood products not planned Discussed the possibility of lip / dental damage: yes Prepared for Surgery: optimally prepared for surgery, pending [see comment]. Email to anesthesia [facility] chart SEVERE aortic stenosis CONSULTS: The following consults have been initiated at this time: anesthesia. Planned Anesthetic: other anesthesia choice The Following Tests/Procedures Have Been Initiated: No orders of the defined types were placed in this encounter. REASON FOR VISIT: Gogo Ware is a 84 year old female who is scheduled for Procedure(s): PHACOEMULSIFICATION CATARACT IMPLANT INTRAOCULAR LENS W/O ENDOSCOPIC CYCLOPHOTOCOAGULATION (Left) at the request of Wali Calvert MD for consultation. My final recommendation will be communicated back to the requesting physician by way of shared medical record or letter. Subjective 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) Insomnia Glaucoma Severe Aortic Stenosis By Prior Echocardiogram COVID-19 Immunization Status Overdue - Covid-19 Vaccine (2022- season) Never done No completion, postpone, frequency change, or communication history exists for this topic. CHIEF COMPLAINT: Pre-op exam HPI: Gogo Ware is a 84 year old seen for PAC due to scheduled above surgery because of cataracts. 01/16/2024, Dr. Triana Cataract Presurgical Documentation Current Visual Acuity Right Eye Distance CC NLP Left Eye Distance CC 20/40 Best Corrected Vision Left Eye 20/40- Glare Testing: Left Eye Off 20/50 Left Eye Low 20/80 Left Eye Medium 20/125 Left Eye High 20/150 Visual Function: Gogo Ware states that the decline in vision from the cataract impedes herabilities as listed in the HPI, as well as other activities of daily living. Gogo Ware has confirmed that she is no longer able to function adequately on a day-to-day basis because of her current visual condition. Further, it is my medical opinion that the cataract is the primary cause, or at least a significantly contributory cause of her visual dysfunction. With uncomplicated cataract surgery and lens implantation, it is my expectation that her visual function and quality of life will improve, significantly. REVIEW OF SYSTEMS: General: No weight loss, malaise or fevers. Neurological: No history of TIA's, stroke, NAPPER GRINDER tumor, impaired sensorium, hemiplegia, paraplegia orquadraplegia. No neurological symptoms or problems. Respiratory: No history of current cough or dyspnea, or pneumonia in the past 6 weeks. No history of respiratory/pulmonary symptoms or problems. Cardiovascular: Positive for: anticoagulation therapy (ASA), CAD, hyperlipidemia (on rx) and hypertension (on rx) Patient's last office visit The following tests and/or procedures were not performed: cardiac stents. Negative for: arrhythmia, atrial fibrillation, chest pain, CHF, congenital heart defect, DVT/PE, recent IA, murmur/valvular heart disease, PVD, open heart surgery and valve surgery. GI: No history of GI symptoms or problems. No history of esophageal varices, recent ascites, or ETOH greater than 2 drinks per day. : No history of dysuria, frequency or incontinence, stones or chronic kidney disease. No difficulty urinating, nocturia > 1 time per night or hematuria. 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 Endocrine: No history of diabetes. Has not taken steroids within the past 30 days. No history of endocrinological symptoms or problems. Hematology: Positive for: bruises/bleeds easily and chronic anti-coagulation/platelet meds. Patient is on anti-coagulation/platelet medication(s): Aspirin. Negative for: anemia and transfusion of at least 4 units within 72 hours prior to surgery. Oncology: No history of CA metastasis, chemo within 30 days, or radiotherapy within 90 days. No history of oncological symptoms or problems. Psych: +insomnia, on rx. No history of psychiatric symptoms or problems. Musculoskeletal: Negative for joint pain or swelling, back pain or muscle pain. Skin: Negative for lesions, rash and itching. PAST MEDICAL HISTORY Diagnosis Date Disease PROBLEM SLEEPING Glaucoma PAST SURGICAL HISTORY Procedure Laterality Date PROCEDURE 1999, 2006 BOTH HIPS REPLACED PROCEDURE 2009 LASER OU FOR GLAUCOMA FAMILY HISTORY Problem Relation Age of Onset Glaucoma Father Diabetes Father Colon Cancer Maternal Grandmother Stroke Maternal Grandfather Blindness Other GREAT AUNT Colon Cancer Other Social History Tobacco Use Smoking status: Never Smokeless tobacco: Never Vaping Use Vaping Use: Never used Substance Use Topics Alcohol use: Never Drug use: Never Prior to Admission medications as of 04/07/24 0902 Medication Sig Last Dose Taking carvedilol (COREG) 12.5 mg tablet Take 1 tablet by mouth twice daily with meals. Taking Yes valsartan (DIOVAN) 160 mg tablet Take 1 tablet by mouth once daily. Patient taking differently: Take 80 mg by mouth once daily. Taking Yes atorvastatin (LIPITOR) 40 mg tablet Take 1 tablet by mouth once daily. Taking Yes brimonidine (ALPHAGAN) 0.2 % ophthalmic solution Use 2 Drops in both eyes twice daily. Taking Yes DORZOLAMIDE HCL/TIMOLOL MALEAT (DORZOLAMIDE-TIMOLOL OPHTHALMIC) Use 1 Drop in eyes twice daily. Taking Yes aspirin, enteric coated (ASPIRIN, ENTERIC COATED) 81 mg EC tablet Take 81 mg by mouth once daily. Taking Yes temazepam (RESTORIL) 30 mg cap Take 30 mg by mouth at bedtime as needed. Taking Yes latanoprost (XALATAN) 0.005 % ophthalmic solution Use 1 Drop in both eyes daily at bedtime. Taking Yes moxifloxacin (VIGAMOX) 0.5 % ophthalmic solution Use 1 Drop in the left eye four times daily. prednisoLONE acetate (PRED FORTE) 1 % ophthalmic suspension Use 1 Drop in the left eye four times daily for 7 days, THEN 1 Drop three times a day for 7 days, THEN 1 Drop two times a day for 7 days, THEN 1 Drop once daily for 7 days. keTORolac (ACULAR) 0.5 % ophthalmic solution Use 1 Drop in the left eye four times daily for 14 days. Medication Comments documented by Cari Roque COT on 01/05/2013 at 1354. PT STATES SHE USES ANOTHER DROP, GREEN TOP, AT NIGHT OU ALLERGIES No Known Allergies Objective PHYSICAL EXAM: General: alert and oriented (x3) and healthy appearance. Pertinent negatives noted - not distressed. Skin: normal color, no rash or lesions. HEENT: EOM intact and pupils equal round. Pertinent negatives noted - no carotid bruit. Cardiovascular: Pulse characterized as regular.Positive for murmur. Respiratory: normal breath sounds, no wheezes or crackles. No chest wall deformity or tenderness. Abdomen: soft. Pertinent negatives noted - not tender. Extremities: no deformity, no edema or tenderness, no joint swelling or clubbing. Neurological: normal cognition and motor skills. Gait normal. No weakness or sensory deficit. PAIN ASSESSMENT: VITALS: BP 124/80 Pulse 60 Temp (Src) 98.6 (Temporal) Resp 14 Ht 5' 5" (1.65m) Wt 168 lb (76.2kg) SpO2 98% BMI 27.96 kg/(m^2). Diagnostic tests reviewed for today's visit: Lab Value Units Date High Low HB No results within date range. HCT No results within date range. WBC No results within date range. PLT No results within date range. NA No results within date range. K No results within date range. GLUC No results within date range. BUN No results within date range. CREAT No results within date range. PTSEC No results within date range. INR No results within date range. APTT No results within date range. ALT No results within date range. AST No results within date range. TBILI No results within date range. TSH No results within date range. Lab Value Units Date High Low HCGQT No results within date range. UHCG No results within date range. HCG, BODY* No results within date range. Lab Value Units Date High Low ABORHD No results within date range. ABSCREEN No results within date range. No results found for: "HBA1C" No results found for this or any previous visit (from the past 8760 hour(s)). No results found for this or any previous visit (from the past 07707 hour(s)). Instructions Given to Patient: Instructions located in the after visit summary. Patient given verbal and written preop instructions and voices comprehension and compliance. SIGNATURE: Dorothy Han APRN.JACEY PATIENT NAME: Gogo Ware DATE: April 06, 2024 TIME: 1:08 PM PAGER/CONTACT #: [facility] Telephone encounter Note * Telephone Encounter - Goldy Nolan - 02/13/2024 10:51 AM EDT Patient hasn't heard from anyone regarding scheduling her surgery. Please contact patient. [facility]04-18-2024 Miscellaneous Notes* Telephone Encounter - Goldy Nolan - 02/13/2024 10:51 AM EDT Patient hasn't heard from anyone regarding scheduling her surgery. Please contact patient. * Telephone Encounter - Elba Metz - 01/17/2024 10:43 AM EDT LVM = sent This is a courtesy call from [facility] to inform you that Dr Triana's space scheduler will be contacting you within the next 7-10 business days to discuss scheduling surgery documented in [facility]Fair[facility] Telephone encounter Note * Telephone Encounter - Elba Metz - 01/17/2024 10:43 AM EDT LVM = sent This is a courtesy call from [facility] to inform you that Dr Triana's space scheduler will be contacting you within the next 7-10 business days to discuss scheduling surgery [facility]03-21-2024 History of Present illness Narrative* Wali Triana MD - 01/16/2024 5:16 PM EDT Encounter Diagnosis ICD-10-CM 1. 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 Primary open angle glaucoma (POAG) of left eye, severe stage H40.[address] Tarun Mcgowan for cat eval Cataract Presurgical Documentation Current Visual Acuity Right Eye Distance CC NLP Left Eye Distance CC 20/40 Best Corrected Vision Left Eye 20/40- Glare Testing: Left Eye Off 20/50 Left Eye Low 20/80 Left Eye Medium 20/125 Left Eye High 20/150 Visual Function: Gogo Ware states that the decline in vision from the cataract impedes herabilities as listed in the HPI, as well as other activities of daily living. Gogo Ware has confirmed that she is no longer able to function adequately on a day-to-day basis because of her current visual condition. Further, it is my medical opinion that the cataract is the primary cause, or at least a significantly contributory cause of her visual dysfunction. With uncomplicated cataract surgery and lens implantation, it is my expectation that her visual function and quality of life will improve, significantly. The risks, benefits, alternatives, personnel and complications of cataract surgery with lens implantation were discussed with Gogo Ware in detail. she appeared to understand and asked that Iproceed with plans for surgery. Assessment: Visually significant cataract BOTH EYES. Discussed IOL options - patient elects monofocal IOL - Dilation: 7mm - Flomax/alpha-madhu? 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 Mcgowan -Reports lasers in both eye for glaucoma -OD NLP with phacomorphic component and NVI Dry eye syndrome OU Blepharitis OU -Rec AFTs and warm compress offer phaco/IOL OS nervous about surgery favor LMA as brunescent cataract, + PXF discussed increased risk of multiple surgeries, possible PPV jg to perform target plano I have confirmed and edited as necessary the relevant ophthalmic history, ROS, and the neuro exam findings as obtained by others. I have seen and examined this patient. I have discussed the case and the management of this patient's care with the Resident/Fellow, if applicable. I also have reviewed and agree with the assessment and plan as stated above and agree with all of its relevant components. Wali Triana MD documented in this encounterArivaca ClinicDismercy [facility] hospitalrge summary Author Manny Murdock [facility] Note Date/Time May 14, 2025 12:4 4pm [facility] Medical Records Department [address] [place] [id number] Discharge Summary 05/14/25 1237 MR#: [id number] Acct: [id number] Name: GOGO WARE p #:[id number] : 1940 85 From: Manny Millard PCP: Dr. Eh Huddleston MD Status:ADM I N Location: [place] [address] Providers Date of Admission: 05/07/25 Date of Discharge: 05/14/25 Primary Care Physician: Dr. Eh Huddleston MD Consultations 05/07/25 15:28 Consult: Orthopedics Routine Consulting Provider: Santhosh Livingston Reason for Consult: Left femur fracture EMERGENT Consult: No MD Notified: Yes Date Notified: 05/07/25 Time Notified: 13:42 Method of Notification: Verbal 05/11/25 19:18 Consult: Tele-Neurology Routine Consulting Provider: [facility] Reason for Consult: Embolic strokes EMERGENT Consult: No Notified: Yes Date Notified: 05/11/25 Time Notified: 23:45 Method of Notification: Answering Service Comments:: Patient on Eliquis Nursing Unit Staff Notify [facility] of Tele-Neurology Consult: Yes Reason For Visit: DISTAL LEFT FEMUR FRACTURE Diagnosis Discharge Diagnosis (1) Femoral distal fracture: Status: Acute Code(s): S72.409A - Unspecified fracture of lower end of unspecified femur, initial encounter for closed fracture Qualifiers: Encounter type: initial encounter Fracture type: closed Laterality: left Plan Patient was admitted with distal left femur fracture and underwent ORIF on 05/10/2025. Later on stroke alert was called for patient having slurred speech and encephalopathy therefore transferred from [facility] to PCU. 1. Left distal femur fracture secondary to osteoporosis- 05/12: Patient had left distal femoral shaft spiral fracture for which she had ORIF. PT OT to continue. 05/14: Dressing is dry but mild dry stain. Follow-up with orthopedic surgeon, Dr. Livingston within 2 weeks #2. Acute stroke suspected embolic with numerous scattered in bilateral cerebral and cerebellar hemispheres: Etiology cryptogenic. Patient had MRI which was reviewed by the neurologist and reported numerous scattered small fociof acute infarct throughout the bilateral cerebral and cerebellar hemispheres asdescribed, presumably embolic. Chronic moderate-advanced chronic small-vessel ischemic changes, with several foci of chronic lacunar infarct mainly involving the left cerebral periventricular white matter. Patient was evaluated by neurologist. Continue baby aspirin and Eliquis. On high intensity statin. Neurologist recommended 30-day event monitor. Follow-up with neurology as an outpatient. 2D echo left atrium mildly enlarged prominent eustachian valve. Mild TR PASP 52 mmHg. Stable appearing bioprosthetic aortic valve/TAVR. Mean AV gradient 24 mmHg. Earlier echo reported intact atrial septum in June [address] Abraham Sheppard CTA no flow-limiting stenosis or LVO. 05/13: Workup is complete. Pending pre-CERT. Patient on baby aspirin, Plavix and atorvastatin.Hemoglobin A1c 5.5, Triglycerides 133, Cholesterol 122, LDL Cholesterol, Calc 61, VLDL Cholesterol 27, HDL Cholesterol 34 L, TSH 2.480. Diabetes ruled out. 05/14: Patient is going to be transferred to TCU for rehab 3. History of valvular heart disease with recent TAVR-patient appears medicallystable 4. Coronary artery disease-patient appears medically stable at this time, I will hold her Plavix for now #4 essential hypertension-patient will remain on her current medications #5 chronic use of anticoagulant-patient is on Eliquis #6 glaucoma-patient will remain on her eyedrops #7 acute anemia secondary to left distal femur fracture-patient's hemoglobin this morning was 6.3, patient will receive 2 units of packed red blood cells, CBC will be repeated tomorrow 05/12, repeat hemoglobin 8.3/24%. Platelet count 129K. 7/18: H&H improved to 9.5/28%. On PPI. Patient denied any upper or lower GI bleed. #8 transient episode of slurred speech-etiology unclear, will have an MRI of thebrain performed today #9 leukocytosis-etiology unclear, patient's white blood cell count today was normal, Leukocytosis has resolved. Patient is not on antibiotic, discontinued earlier. #10 encephalopathy probably due to embolic stroke as mentioned above: Encephalopathy has resolved. Discharge medication reconciliation done. Discharge follow-up instructions completed. Discharge process discussed with the patient and all questions wereanswered to patient's satisfaction. Follow with PCP in 1 to 2 weeks Total time spent, exact 35 minutes on discharge meds reconciliation, examination, coordination of care with nurses and ancillary staff, review of imaging and blood test and discussion with the patient on follow-up instructions. Clinical Impression(s) from Imaging Studies Pelvis X-Ray 05/07/25 07:21 IMPRESSION: A spiral FRACTURE of the distal left femoral shaft is seen, with some override also present. No intra-articular extension is clearly evident. 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 In visualized areas, no evidence of prosthesis loosening or metallic fracture is seen. Vascular stent is seen overlying the right femoral neck. Mild sacroiliac joint degenerative changes are noted. Prominent degenerative changes of the visualized lower lumbar spine are seen. Obtg-hu-gjozimse degenerative changes of the visualized portions of the left knee. Reading Location: [address] Femur X-Ray 05/07/25 07:24 IMPRESSION: A spiral FRACTURE of the distal left femoral shaft is seen, with some override also present. No intra-articular extension is clearly evident. 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 In visualized areas, no evidence of prosthesis loosening or metallic fracture is seen. Vascular stent is seen overlying the right femoral neck. Mild sacroiliac joint degenerative changes are noted. Prominent degenerative changes of the visualized lower lumbar spine are seen. Mgyz-mc-zfbtqgkl degenerative changes of the visualized portions of the left knee. Reading Location: [id number] Femur X-Ray 05/09/25 08:00 IMPRESSION: Anatomic alignment [facility] 05/10/25 09:24 IMPRESSION: CHRONIC CHANGES. NO ACUTE FINDINGS. Reading Location: [facility] Head/Neck CTA 05/10/25 09:35 IMPRESSION: Atherosclerotic calcific plaques at the origin of the right and left internal carotid arteries as described. Red Alert: Nothing acute The critical information above was relayed directly by me by telephone to Sourav Casiano on 05/10/2025 at 9:55 am with readback verification. Reading Location: [facility] Brain MRI 05/11/25 12:05 IMPRESSION: 1. Numerous scattered small foci of acute infarct throughout the bilateral cerebral and cerebellar hemispheres as described, presumably embolic. 2. Background of moderate-advanced chronic small-vessel ischemic changes, with several foci of chronic lacunar infarct mainly involving the left cerebral periventricular white matter. 3. No intracranial hemorrhage, extra-axial collection, or mass-effect. Echocardiogram 05/11/25 19:18 Interpretation Summary The estimated ejection fraction is 65 %. Stage 2 diastolic dysfunction. The left atrium is mildly enlarged. Stable appearing bioprosthetic aortic valve apparatus. Mean peak gradient 24 mmHg. Mild (1+) tricuspid valve insufficiency. Pulmonary artery systolic pressure is 52 mmHg. Contrast injection was performed. Ordering Physician: Sourav Casiano Performed By: José Manuel Siddiqui and Student Medications at Discharge Home Medications brimonidine 0.2 % eye drops 2 drp EACH EYE BID glaucoma 11/25/17 dorzolamide 22.3 mg-timolol 6.8 mg/mL eye drops 1 drp EACH EYE BID glaucoma 11/25/17 latanoprost 0.005 % eye drops 1 drp ophthalmic (eye) QPM 12/17/19 carvedilol 12.5 mg tablet 12.5 mg PO BID #180 tabs 11/03/24 apixaban 5 mg tablet (Eliquis) 5 mg PO BID 05/07/25 clopidogrel 75 mg tablet 75 mg PO DAILY 05/07/25 temazepam 30 mg capsule 30 mg PO DAILY 05/07/25 acetaminophen 500 mg tablet (Acetaminophen Pain Relief) 1,000 mg (2 x 500 mg) POQ8H Pain 1-10 Or Fever >100.7 30 days #180 tabs 05/14/25 atorvastatin 40 mg tablet 40 mg PO QHS #0 tabs 05/14/25 losartan 25 mg tablet 25 mg PO DAILY #0 tabs 05/14/25 oxycodone 5 mg tablet 2.5 - 5 mg (0.5 - 1 x 5 mg) PO Q4H PRN PRN Pain Score 4- 10#0 tabs 05/14/25 pantoprazole 40 mg tablet,delayed release 40 mg PO DAILY #0 tabs 05/14/25 sennosides 8.6 mg-docusate sodium 50 mg tablet (Stimulant Laxative Plus) 2 tab PO BID #0 tabs 05/14/25 Physical Exam Narrative Seen and examined Patient complain of mild heaviness in the leg. Otherwise no acute issues. Patient has slow speech and slurred, mild echolalia. Chronic left-sided facial droop. Found to have a small stroke suspected embolic stroke on MRI. Physical exam General: Alert, Oriented x3, Cooperative. BMI 27.3 kg/m? HEENT: Atraumatic, PERRLA, EOMI, Normocephalic. Oral: No Gingival or Mucosal Lesions/ Ulcerations Neck: Supple, No JVD, Negative Carotid Bruits Chest wall/Lungs: Air entry equal in bilateral lung bases. No crepitation/rhonchi Cardiovascular: Regular rate and rhythm, Normal S1,S2, No M/G/R Abdomen: Bowel Sounds Present, Soft, Non Tender, Non-Distended : No dysuria. No renal angle tenderness. No suprapubic tenderness. Extremities: No edema, Capillary Refill Less than 3 Seconds Skin: Surgical dressing over left hip is dry Musculoskeletal: No Tenderness to Palpation of Joints or Extremities. Muscle strength 4/5 at left leg at hip joint with recent surgery. Right leg also weak,4/5 Neurological: Cranial nerves II-XII grossly intact, DTR 2+/4. Mild slurring speech. Psych/Mental Status: Flat affect Weight / BMI Weight Weight: 166 lb 10.711 oz Body Mass Index (BMI) 27.3 ABG / Lab / Microbiology Data 05/14/25 06:00 05/12/25 11:29 Laboratory: Laboratory Results - last 24 hr 05/13/25 13:08: POC Glucose 131 H 05/13/25 16:51: POC Glucose 141 H 05/14/25 06:00: WBC 7.5, RBC 3.11 L, Hgb 9.5 L, Hct 28.0 L, MCV 90.0, MCH 30.5, MCHC 33.9, RDW Std Deviation 47.7 H, RDW Coeff of Alex 14.6, Plt Count 186, MPV 9.7, Immature Gran % (Auto) 0.900, Neut % (Auto) 67.5, Lymph % (Auto) 18.1 L, Stanly % (Auto) 10.3 H, Eos % (Auto) 2.9, Baso % (Auto) 0.3, Absolute Neuts (auto) 5.1, Absolute Lymphs (auto) 1.36, Nucleated RBC % 0 Microbiology: Microbiology 05/10/25 18:33 Blood Culture (Wb) - Anticubital Right Blood Culture - Preliminary No growth in 48 hours. D/C Instructions DC O2, CPAP, BIPAP Needs Home O2 Discharge instructions: No Meaningful Use Info Meaningful Use Meaningful Use Diagnoses (Choose all that apply): Ischemic CVA CVA Therapy Assessed for PT,OT and/or ST?: Yes Ischemic Stroke Antithrombotic order at d/c?: Yes Dx of Atrial fib/flutter?: No Statins at discharge?: Yes Primary Dx Acute Ischemic CVA?: Yes Discharge Plan Admission Admit Date/Time: 05/07/25 13:32 Primary Reason for Your Visit: Left hip fracture, bilateral embolic stroke Attending Provider: Manny Murdock Primary Care Provider: Eh Huddleston Chi Consulting Providers: oSurav Casiano; Santhosh Livingston; Nathan Heredia; Des Link; Georgina Sosa; Sondra Lira; Elva Maxwell; Seng Daniel; Deann Santana; Piero Richard; Marco Zafar; Armin Street; Melissa Quinonez; Malachi Charles; Kayla Perez; Maikel Arreaga; Maria Guadalupe Rocha; Domenic Blanco; Mp Petersen; Yordan Alfaro; Yolanda Arriola; Benjamín Trinidad Discharge Orders/Prescriptions Prescriptions: New atorvastatin 40 mg Tablet 40 mg PO QHS Qty: 0 0RF sennosides-docusate sodium [Stimulant Laxative Plus] 8.6-50 mg Tablet 2 tab PO BID Qty: 0 0RF pantoprazole 40 mg Tablet,Delayed Release (Dr/Ec) 40 mg PO DAILY Qty: 0 0RF losartan 25 mg Tablet 25 mg PO DAILY Qty: 0 0RF Rx Instructions: Hold for SBP less than 120 mmHg oxycodone 5 mg Tablet 2.5 - 5 mg PO Q4H PRN PRN (Reason: Pain Score 4-10) Qty: 0 0RF Rx Instructions: Oxycodone 2.5 mg for moderate pain and 5 mg for severe pain respectively. acetaminophen [Acetaminophen Pain Relief] 500 mg tablet 1,000 mg PO Q8H 30 Days Qty: 180 0RF Rx Instructions: 1 g, 3 times daily for 1 week and then 1 g Q8 hourly as needed for moderate to severe pain Continued latanoprost 0.005 % drops 1 drp OPHTHALMIC QPM brimonidine 1 DROP bottle 2 drp EACH EYE BID dorzolamide-timolol 10 ML drops 1 drp EACH EYE BID Patient Comments: clopidogrel 75 mg tablet 75 mg PO DAILY Eliquis 5 mg tablet 5 mg PO BID temazepam 30 mg capsule 30 mg PO DAILY carvedilol 12.5 mg tablet 12.5 mg PO BID Qty: 180 4RF Discontinued valsartan 160 mg tablet 80 mg PO DAILY Other Ambulatory Orders: 30 Day Event Recorder Preventi (Urgent) Timeframe: 1 Day Facility: [facility] - Location: Cardiovascular Services Ordered By: Dr. Manny Murdock Referrals / Follow Up: Marco Zafar MD [Med Staff - Contracted] - Santhosh Livingston DO [Med Staff - Active Staff] - Within 2 Weeks Natan Melendez MD [Non-Staff -Ordering Privileges] - Within 1 Month (FOR EMBOLIC STROKE) Eh Huddleston Chi, MD [Primary Care Provider] - Disposition Disposition (needs filled in before D/C Order can be placed): [facility] 05/14/25 1244 <Electronically signed by Manny Murdock MD> Cosigner Signature (if applicable): CC: Dr. Manny Murdock MD; Dr. Eh Huddleston MD~ Signed [facility] Work Phone: Evaluation noteNo assessment information available [facility] Work Phone: Evaluation note* Diagnosis Onset Date Resolution Status Atherosclerotic heart diseas e of [place] coronary artery without angina pectoris chronic Essential hypertension chron ic Nonrheumatic aortic (valve) stenosis chronic Pure hypercholesterolemia [facility] Work Phone: Evaluation note* Diagnosis Onset Date Resolution Status Atherosclerotic heart diseas e of [place] coronary artery without angina pectoris chronic Essential hypertension chron ic Nonrheumatic aortic (valve) stenosis chronic Pure hypercholesterolemia [facility] Atherosclerotic heart diseas e of [place] coronary artery without angina pectoris chronic Essential hypertension chron ic Nonrheumatic aortic (valve) stenosis chronic Pure hypercholesterolemia [facility] Work Phone: Evaluation note* Diagnosis Total, mature senile cataract- Primary Total or mature senile cataract [facility] Diagnosis Total, mature senile cataract- Primary Total or mature senile cataract 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, 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, severe stage [facility]* Diagnosis Pre-operative examination- Primary Preoperative examination, unspecified Severe aortic stenosis by prior echocardiogram Aortic valve disorders 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 (HCC) Insomnia, unspecified type Essential (primary) hypertension Unspecified essential hypertension Mixed hyperlipidemia Glaucoma, unspecified glaucoma type, unspecified laterality Total, mature senile cataract Total or mature senile cataract * Assessment & Plan Note - Dorothy Han APRN.CNP - 04/07/2024 9:20 AM EDT Associated Problem(s): 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 Assessment: moderate 3 vessel disease, pt denies any intervention. Pt denies any symptoms of angina. 03/16/2024 Eliana Whipple PA-C * Assessment & Plan Note - Dorothy Han APRN.CNP - 04/07/2024 9:15 AM EDT Associated Problem(s): Severe aortic stenosis by prior echocardiogram Images from the original note were not included. Assessment: SEVERE, pt declined TAVR at last cardiac OV 03/26/24. Pt states she is asymptomatic.EMAIL TO ANESTHESIA. 03/16/2024 Eliana Whipple PA-C * Assessment & Plan Note - Dorothy Han APRN.CNP - 04/07/2024 9:05 AM EDT Associated Problem(s): Glaucoma Assessment: controlled on rx * Assessment & Plan Note - Dorothy Han APRN.CNP - 04/07/2024 9:05 AM EDT Associated Problem(s): Mixed hyperlipidemia Assessment: c/w statin * Assessment & Plan Note - Dorothy Han APRN.CNP - 04/07/2024 9:04 AM EDT Associated Problem(s): Essential (primary) hypertension Assessment: controlled on rx Last 14 BP Last 14 Encounter BP Readings: Date: BP: 04/06/2024 124/80 03/24/2019 182/94 10/01/2018 183/85 04/01/2018 134/80 12/30/2017 140/62 12/23/2017 162/74 12/23/2017 142/82[ (from Extended Vitals)[ 08/11/2015 138/76 07/28/2015 162/74[bP angie average[ 11/01/2014 148/82 10/29/2014 150/82 * Assessment & Plan Note - Dorothy Han APRN.CNP - 04/07/2024 9:04 AM EDT Associated Problem(s): Insomnia Assessment: controlled on rx [facility] Aortic valve stenosis, etiology of cardiac valve disease unspecified- Primary Preop examination Preoperative examination, unspecified Total, mature senile cataract Total or mature senile cataract [facility] Diagnosis Aortic valve stenosis, etiology of cardiac valve disease unspecified- Primary Total, mature senile cataract Total or mature senile cataract [facility] Diagnosis Aortic valve stenosis, etiology of cardiac valve disease unspecified- Primary [facility]* Diagnosis Pseudophakia- Primary Lens 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 [facility]* Diagnosis Non-rheumatic aortic stenosis- Primary Aortic valve disorders Coronary artery disease due to lipid rich plaque [facility] Diagnosis Non-rheumatic aortic stenosis- Primary Aortic valve disorders [facility]* Diagnosis PCO (posterior capsular opacification), left- Primary After-cataract, unspecified Pseudophakia Lens replaced by other means Primary open angle glaucoma (POAG) of left eye, severe stage [facility]* Diagnosis Severe aortic stenosis by prior echocardiogram- Primary Aortic valve disorders Encounter for preprocedural cardiovascular examination Pre-operative cardiovascular examination Aortic valve disorder Aortic valve disorders [facility]* Diagnosis Pre-operative examination- Primary Preoperative examination, unspecified Severe aortic stenosis by prior echocardiogram Aortic valve disorders 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 (HCC) Insomnia, unspecified type Essential (primary) hypertension Unspecified essential hypertension Mixed hyperlipidemia Glaucoma, unspecified glaucoma type, unspecified laterality Nonrheumatic aortic valve stenosis- Primary Aortic valve disorders Coronary artery disease involving [place] coronary artery of [place] heart, unspecified whether angina present Encounter to establish care Other reasons for seeking consultation Pre-operative cardiovascular examination Chronic diastolic congestive heart failure (HCC) Chronic diastolic heart failure Nonrheumatic aortic valve stenosis Aortic valve disorders [facility] Diagnosis Pre-operative examination- Primary Preoperative examination, unspecified Severe aortic stenosis by prior echocardiogram Aortic valve disorders 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 (HCC) Insomnia, unspecified type Essential (primary) hypertension Unspecified essential hypertension Mixed hyperlipidemia Glaucoma, unspecified glaucoma type, unspecified laterality Severe aortic stenosis by prior echocardiogram Aortic valve disorders Encounter for preprocedural cardiovascular examination Pre-operative cardiovascular examination Aortic valve disorder Aortic valve disorders Nonrheumatic aortic valve stenosis Aortic valve disorders [facility]* Diagnosis Pre-operative examination- Primary Preoperative examination, unspecified Severe aortic stenosis by prior echocardiogram Aortic valve disorders 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 (HCC) Insomnia, unspecified type Essential (primary) hypertension Unspecified essential hypertension Mixed hyperlipidemia Glaucoma, unspecified glaucoma type, unspecified laterality Severe aortic stenosis by prior echocardiogram Aortic valve disorders Encounter for preprocedural cardiovascular examination Pre-operative cardiovascular examination Aortic valve disorder Aortic valve disorders Nonrheumatic aortic valve stenosis Aortic valve disorders [facility]* Diagnosis Pre-operative examination- Primary Preoperative examination, unspecified Severe aortic stenosis by prior echocardiogram Aortic valve disorders 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 (HCC) Insomnia, unspecified type Essential (primary) hypertension Unspecified essential hypertension Mixed hyperlipidemia Glaucoma, unspecified glaucoma type, unspecified laterality Aortic valve disorder- Primary Aortic valve disorders Severe aortic stenosis by prior echocardiogram Aortic valve disorders Encounter for preprocedural cardiovascular examination Pre-operative cardiovascular examination [facility]* Diagnosis Pre-operative examination- Primary Preoperative examination, unspecified Severe aortic stenosis by prior echocardiogram Aortic valve disorders 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 (HCC) Insomnia, unspecified type Essential (primary) hypertension Unspecified essential hypertension Mixed hyperlipidemia Glaucoma, unspecified glaucoma type, unspecified laterality Aortic valve disorder- Primary Aortic valve disorders Severe aortic stenosis by prior echocardiogram Aortic valve disorders Encounter for preprocedural cardiovascular examination Pre-operative cardiovascular examination [facility]* Diagnosis Pre-operative examination- Primary Preoperative examination, unspecified Severe aortic stenosis by prior echocardiogram Aortic valve disorders 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 (HCC) Insomnia, unspecified type Essential (primary) hypertension Unspecified essential hypertension Mixed hyperlipidemia Glaucoma, unspecified glaucoma type, unspecified laterality Nonrheumatic aortic valve stenosis- Primary Aortic valve disorders [facility]* Diagnosis Pre-operative examination- Primary Preoperative examination, unspecified Severe aortic stenosis by prior echocardiogram Aortic valve disorders 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 (HCC) Insomnia, unspecified type Essential (primary) hypertension Unspecified essential hypertension Mixed hyperlipidemia Glaucoma, unspecified glaucoma type, unspecified laterality Nonrheumatic aortic valve stenosis- Primary Aortic valve disorders [facility]* Diagnosis Pre-operative examination- Primary Preoperative examination, unspecified Severe aortic stenosis by prior echocardiogram Aortic valve disorders 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 (HCC) Insomnia, unspecified type Essential (primary) hypertension Unspecified essential hypertension Mixed hyperlipidemia Glaucoma, unspecified glaucoma type, unspecified laterality Severe aortic stenosis by prior echocardiogram Aortic valve disorders Encounter for preprocedural cardiovascular examination Pre-operative cardiovascular examination Aortic valve disorder Aortic valve disorders documented in this encounter [facility] note* Diagnosis Pre-operative examination- Primary Preoperative examination, unspecified Severe aortic stenosis by prior echocardiogram Aortic valve disorders 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 (HCC) Insomnia, unspecified type Essential (primary) hypertension Unspecified essential hypertension Mixed hyperlipidemia Glaucoma, unspecified glaucoma type, unspecified laterality Nonrheumatic aortic valve stenosis- Primary Aortic valve disorders [facility]* Diagnosis Pre-operative examination- Primary Preoperative examination, unspecified Severe aortic stenosis by prior echocardiogram Aortic valve disorders 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 (HCC) Insomnia, unspecified type Essential (primary) hypertension Unspecified essential hypertension Mixed hyperlipidemia Glaucoma, unspecified glaucoma type, unspecified laterality Nonrheumatic aortic valve stenosis- Primary Aortic valve disorders Aortic valve disorder Aortic valve disorders Aortic valve stenosis, etiology of cardiac valve disease unspecified [facility]* Diagnosis Pre-operative examination- Primary Preoperative examination, unspecified Severe aortic stenosis by prior echocardiogram Aortic valve disorders 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 (HCC) Insomnia, unspecified type Essential (primary) hypertension Unspecified essential hypertension Mixed hyperlipidemia Glaucoma, unspecified glaucoma type, unspecified laterality Encounter for preoperative anesthesiology assessment for cardiac surgery- Primary Aortic valve stenosis, etiology of cardiac valve disease unspecified [facility]* Diagnosis Pre-operative examination- Primary Preoperative examination, unspecified Severe aortic stenosis by prior echocardiogram Aortic valve disorders 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 (HCC) Insomnia, unspecified type Essential (primary) hypertension Unspecified essential hypertension Mixed hyperlipidemia Glaucoma, unspecified glaucoma type, unspecified laterality Nonrheumatic aortic valve stenosis- Primary Aortic valve disorders Aortic valve disorder Aortic valve disorders Aortic valve stenosis, etiology of cardiac valve disease unspecified documented in this encounter [facility] note* Diagnosis Pre-operative examination- Primary Preoperative examination, unspecified Severe aortic stenosis by prior echocardiogram Aortic valve disorders 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 (HCC) Insomnia, unspecified type Essential (primary) hypertension Unspecified essential hypertension Mixed hyperlipidemia Glaucoma, unspecified glaucoma type, unspecified laterality Mixed hyperlipidemia Essential (primary) hypertension Unspecified essential hypertension 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 (HCC) Nonrheumatic aortic valve stenosis Aortic valve disorders Acute on chronic diastolic congestive heart failure (HCC) Acute on chronic diastolic heart failure Nonrheumatic aortic valve stenosis- Primary Aortic valve disorders S/P TAVR (transcatheter aortic valve replacement) Heart valve replaced by other means Aortic valve stenosis, etiology of cardiac valve disease unspecified [facility]* Diagnosis Pre-operative examination- Primary Preoperative examination, unspecified Severe aortic stenosis by prior echocardiogram Aortic valve disorders 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 (HCC) Insomnia, unspecified type Essential (primary) hypertension Unspecified essential hypertension Mixed hyperlipidemia Glaucoma, unspecified glaucoma type, unspecified laterality Nonrheumatic aortic valve stenosis Aortic valve disorders Aortic valve disorder Aortic valve disorders [facility]* Diagnosis Pre-operative examination- Primary Preoperative examination, unspecified Severe aortic stenosis by prior echocardiogram Aortic valve disorders 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 (HCC) Insomnia, unspecified type Essential (primary) hypertension Unspecified essential hypertension Mixed hyperlipidemia Glaucoma, unspecified glaucoma type, unspecified laterality PAD (peripheral artery disease) (HCC)- Primary Peripheral vascular disease, unspecified [facility]* Diagnosis Pre-operative examination- Primary Preoperative examination, unspecified Severe aortic stenosis by prior echocardiogram Aortic valve disorders 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 (HCC) Insomnia, unspecified type Essential (primary) hypertension Unspecified essential hypertension Mixed hyperlipidemia Glaucoma, unspecified glaucoma type, unspecified laterality S/P TAVR (transcatheter aortic valve replacement)- Primary Heart valve replaced by other means Acute on chronic diastolic congestive heart failure (HCC) Acute on chronic diastolic heart failure Nonrheumatic aortic valve stenosis Aortic valve disorders Mixed hyperlipidemia Essential (primary) hypertension Unspecified essential hypertension 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 (HCC) [facility]* Diagnosis Pre-operative examination- Primary Preoperative examination, unspecified Severe aortic stenosis by prior echocardiogram Aortic valve disorders 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 (HCC) Insomnia, unspecified type Essential (primary) hypertension Unspecified essential hypertension Mixed hyperlipidemia Glaucoma, unspecified glaucoma type, unspecified laterality S/P TAVR (transcatheter aortic valve replacement)- Primary Heart valve replaced by other means Severe aortic stenosis Aortic valve disorders Nonrheumatic aortic valve stenosis Aortic valve disorders 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 (HCC) Mixed hyperlipidemia Essential (primary) hypertension Unspecified essential hypertension [facility]* Diagnosis Pre-operative examination- Primary Preoperative examination, unspecified Severe aortic stenosis by prior echocardiogram Aortic valve disorders 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 Insomnia, unspecified type Essential (primary) hypertension Unspecified essential hypertension Mixed hyperlipidemia Glaucoma, unspecified glaucoma type, unspecified laterality Mixed hyperlipidemia- Primary S/P TAVR (transcatheter aortic valve replacement) Heart valve replaced by other means Chronic diastolic congestive heart failure (HCC) Chronic diastolic heart failure 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 Essential (primary) hypertension Unspecified essential hypertension Acute deep vein thrombosis (DVT) of calf muscle vein of right lower extremity (HCC) [facility] Diagnosis Pre-operative examination- Primary Preoperative examination, unspecified Severe aortic stenosis by prior echocardiogram Aortic valve disorders 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 Insomnia, unspecified type Essential (primary) hypertension Unspecified essential hypertension Mixed hyperlipidemia Glaucoma, unspecified glaucoma type, unspecified laterality Mixed hyperlipidemia Essential (primary) hypertension Unspecified essential hypertension 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 aortic valve stenosis Aortic valve disorders S/P TAVR (transcatheter aortic valve replacement) Heart valve replaced by other means Severe aortic stenosis Aortic valve disorders documented in this encounter [facility] note* Diagnosis Pre-operative examination- Primary Preoperative examination, unspecified Severe aortic stenosis by prior echocardiogram Aortic valve disorders 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 Insomnia, unspecified type Essential (primary) hypertension Unspecified essential hypertension Mixed hyperlipidemia Glaucoma, unspecified glaucoma type, unspecified laterality S/P TAVR (transcatheter aortic valve replacement)- Primary Heart valve replaced by other means Severe aortic stenosis Aortic valve disorders documented in this encounter [facility] Discharge instructionsAdditional Instructions Discharge 06/07/2025 to [facility], intermediate, part B therapies.[facility] Work Phone: Reason for referral (narrative)* Outpatient Procedure (Routine) - Pending Review Specialty Diagnoses / Procedures Referred By Yessy t Referred To [facility] Diagnoses Aortic valve stenosis, etiology of cardiac valve disease unspecified Preop examination Procedures ECHO ECHO TTHRC R-T 2D W/WOM-MODE COMPL SPEC&COLR D Therese Ruelas MD [address] [place] [address] [id number] [place] [address] Referral ID Status Reason Start Date Expiration Date Visits Requested Visits Authorized [id number] Pending Review Auto-Genera fitz Referral Patient Cleared - Admin/Chair man/Directo r advise to proceed or did not respond 04/08/2024 04/08/2025 1 1 [facility] for referral (narrative)* Outpatient Procedure (Routine) - Pending Review Specialty Diagnoses / Procedures Referred By Contac t Referred To Contact [facility] Diagnoses Non-rheumatic aortic stenosis Procedures ECHO ECHO TTHRC R-T 2D W/WOM-MODE COMPL SPEC&COLR D James Lindo MD [address] [place] [address] [address] [address] [place] [address] Referral ID Status Reason Start Date Expiration Date Visits Requested Visits Authorized [id number] Pending Review Auto-Generat ed Referral 04/28/2024 04/28/2025 1 1 * Outpatient Procedure (Routine) - Pending Review Specialty Diagnoses / Procedures Referred By Contac t Referred To Contact [facility] Diagnoses Non-rheumatic aortic stenosis Procedures ECG COMPLETE ECG ROUTINE ECG W/LEAST 12 LDS W/I&R James Lindo MD [address] [place] [address] [facility] [address] [place] [address] Referral ID Status Reason Start Date Expiration Date Visits Requested Visits Authorized [id number] Pending Review Auto-Generat ed Referral 04/28/2024 04/28/2025 1 1 * Transition of Care (Routine) - Ref Not Required Specialty Diagnoses / Procedures Referred By Contac t Referred To Contact [facility] Procedures CARDIOVASCULAR MEDICINE OP FOLLOW UP APPT ORDER James Lindo MD [address] [facility]/[address] [place] [address] [address] [phone] Referral ID Status Reason Start Date Expiration Date Visits Requested Visits Authorized [id number] Ref Not Required PCP Requested Referral 10/29/2024 04/28/2025 1 1 [facility] for referral (narrative)* Outpatient Procedure (Routine) - New Request Specialty Diagnoses / Procedures Referred By Contac t Referred To Contact [facility] Diagnoses Severe aortic stenosis by prior echocardiogram Encounter for preprocedural cardiovascular examination Aortic valve disorder Procedures ECG COMPLETE ECG ROUTINE ECG W/LEAST 12 LDS W/I&R Kacy Jimenez APRN.NAPPER GRINDER [address] [phone] [address] [phone] Referral ID Status Reason Start Date Expiration Date Visits Requested Visits Authorized [id number] New Request Auto-Generat ed Referral 06/09/2024 06/09/2025 1 1 * Outpatient Procedure (Routine) - New Request Specialty Diagnoses / Procedures Referred By Contac t Referred To Contact [facility] Diagnoses Severe aortic stenosis by prior echocardiogram Encounter for preprocedural cardiovascular examination Aortic valve disorder Procedures US CAROTID ARTERIES [facility] DUPLEX SCAN EXTRACRANIAL ART COMPL BI STUDY Kacy Jimenez APRN.NAPPER GRINDER [address] [place] [address] [address] Referral ID Status Reason Start Date Expiration Date Visits Requested Visits Authorized [id number] New Request Auto-Generat ed Referral 06/09/2024 06/09/2025 1 1 * Diagnostic Procedure Only (Routine) - New Request Specialty Diagnoses / Procedures Referred By Contac t Referred To Contact [facility] Diagnoses Severe aortic stenosis by prior echocardiogram Encounter for preprocedural cardiovascular examination Aortic valve disorder Procedures NM SPECT/CT CARDIAC AMYLOID RP LOCLZJ HENRY SPECT W/CT 1 AREA 1 DAY IMAGING Kacy Jimenez APRN.NAPPER GRINDER [address] [phone] [facility] [address] [place] [address] Referral ID Status Reason Start Date Expiration Date Visits Requested Visits Authorized [id number] New Request Auto-Generat ed Referral 06/09/2024 07/09/2025 1 1 * MRI/CT (Routine) - New Request Specialty Diagnoses / Procedures Referred By Kaileyac t Referred To Contact CT IMAGING Diagnoses Severe aortic stenosis by prior echocardiogram Encounter for preprocedural cardiovascular examination Aortic valve disorder Procedures CTA CHEST/ABD/PEL (GATED) W IVCON CT ANGIOGRAPHY CHEST W/CONTRAST/NONCONTRAST CT ANGIO ABD&PLVIS CNTRST MTRL W/WO CNTRST IMGES HeldKacy APRN.NAPPER GRINDER [address] [place] [address] Ct Imaging [address] [address] Referral ID Status Reason Start Date Expiration Date Visits Requested Visits Authorized [id number] New Request Auto-Generat ed Referral 06/09/2024 07/09/2025 1 1 * Outpatient Procedure (Routine) - New Request Specialty Diagnoses / Procedures Referred By Contac t Referred To Contact [facility] Diagnoses Severe aortic stenosis by prior echocardiogram Encounter for preprocedural cardiovascular examination Aortic valve disorder Procedures LUNG DIFFUSION CAPACITY (DLCO) DIFFUSING CAPACITY Kacy Jimenez APRN.NAPPER GRINDER [address] [phone] [facility] [address] [place] [address] Referral ID Status Reason Start Date Expiration Date Visits Requested Visits Authorized [id number] New Request Auto-Generat ed Referral 06/09/2024 07/09/2025 1 1 * Outpatient Procedure (Routine) - New Request Specialty Diagnoses / Procedures Referred By Yessy t Referred To Contact [facility] Diagnoses Severe aortic stenosis by prior echocardiogram Encounter for preprocedural cardiovascular examination Aortic valve disorder Procedures SPIROMETRY BASELINE ONLY SPMTRY W/VC EXPIRATORY PEDRO W/WO MXML VOL VNTJ Kacy Jimenez APRN.NAPPER GRINDER [address] [place] [address] [facility] [address] [place] [address] Referral ID Status Reason Start Date Expiration Date Visits Requested Visits Authorized [id number] New Request Auto-Generat ed Referral 06/09/2024 07/09/2025 1 1 [facility] for referral (narrative)* Diagnostic Procedure Only (Routine) - Closed Specialty Diagnoses / Procedures Referred By Yessy bauer Referred To Contact [facility] Diagnoses Severe aortic stenosis by prior echocardiogram Encounter for preprocedural cardiovascular examination Aortic valve disorder Procedures NM SPECT/CT CARDIAC AMYLOID RP LOCLZJ HENRY SPECT W/CT 1 AREA 1 DAY IMAGING Kacy Jimenez APRN.NAPPER GRINDER [address] [place] [address] [facility] [address] [place] [address] Referral ID Status Reason Start Date Expiration Date V isits Requested Visits Authorized [id number] Closed Auto-Generate d Referral 06/09/2024 07/09/2025 1 1 [facility] for referral (narrative)* Outpatient Procedure (Routine) - Authorized Specialty Diagnoses / Procedures Referred By Kaileyac t Referred To [facility] Diagnoses Nonrheumatic aortic valve stenosis Aortic valve disorder Procedures ECG COMPLETE ECG ROUTINE ECG W/LEAST 12 LDS W/I&R Lbua Llanes APRN.MEDICAL RECORDS SPECIALIST [phone] [place] [address] Referral ID Status Reason Start Date Expiration Date Visits Requested Visits Authorized [id number] Authorized Auto-Generat ed Referral 10/07/2025 1 1 [facility] for referral (narrative)* Outpatient Procedure (Routine) - New Request Specialty Diagnoses / Procedures Referred By Contac t Referred To Contact [facility] Diagnoses Nonrheumatic aortic valve 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) Procedures ECG COMPLETE ECG ROUTINE ECG W/LEAST 12 LDS W/I&[place] [address] [phone] [address] [phone] Referral ID Status Reason Start Date Expiration Date Visits Requested Visits Authorized [id number] New Request Auto-Generat ed Referral 10/29/2024 10/29/2025 1 1 * Outpatient Procedure (Routine) - New Request Specialty Diagnoses / Procedures Referred By Contac t Referred To Contact [facility] Diagnoses Nonrheumatic aortic valve 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) Procedures ECG COMPLETE ECG ROUTINE ECG W/LEAST 12 LDS W/I&[place] [address] [place] [address] [address] [phone] Referral ID Status Reason Start Date Expiration Date Visits Requested Visits Authorized [id number] New Request Auto-Generat ed Referral 10/29/2024 10/29/2025 1 1 * Outpatient Procedure (Routine) - New Request Specialty Diagnoses / Procedures Referred By Contac t Referred To Contact [facility] Diagnoses Nonrheumatic aortic valve 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) Procedures ECHO ECHO TTHRC R-T 2D W/WOM-MODE COMPL SPEC&[place] [address] [place] [address] [facility] [address] [place] [address] Referral ID Status Reason Start Date Expiration Date Visits Requested Visits Authorized [id number] New Request Auto-Generat ed Referral 10/29/2024 10/29/2025 1 1 [facility] for referral (narrative)* Outpatient Procedure (Routine) - Authorized Specialty Diagnoses / Procedures Referred By Contac t Referred To Contact [facility] Diagnoses PAD (peripheral artery disease) (HCC) Procedures PVR ANK PRESS [facility] NON-INVAS PHYSIOLOGIC STD EXTREMITY ART 2 LEVEL Deng Koenig APRN.MEDICAL RECORDS SPECIALIST [address] [employer] [place] [address] [address] [place] [address] Referral ID Status Reason Start Date Expiration Date Visits Requested Visits Authorized [id number] Authorized Auto-Generat ed Referral 10/30/2024 10/30/2025 1 1 * Outpatient Procedure (Routine) - Authorized Specialty Diagnoses / Procedures Referred By Contac t Referred To Contact [facility] Diagnoses PAD (peripheral artery disease) (HCC) Procedures US LEG ARTERIAL PERIPH UNL VAS LAB DUP-SCAN LXTR ART/ARTL BPGS UNI/LMTD STUDY Deng Koenig APRN.MEDICAL RECORDS SPECIALIST [address] [employer] [address] [facility] [address] [place] [phone] Referral ID Status Reason Start Date Expiration Date Visits Requested Visits Authorized [id number] Authorized Auto-Generat ed Referral 11/30/2024 10/30/2025 [address] [facility] ([facility]ative)No reason for referral information availableWSelect [facility] Work Phone: Reason for visit Narrative* Diagnostic Procedure Only (Routine) - Closed Specialty Diagnoses / Procedures Referred By Contac t Referred To Contact [facility] Diagnoses Severe aortic stenosis by prior echocardiogram Encounter for preprocedural cardiovascular examination Aortic valve disorder Procedures NM SPECT/CT CARDIAC AMYLOID RP LOCLZJ HENRY SPECT W/CT 1 AREA 1 DAY IMAGING Held, Kacy Bañuelos APRN.NAPPER GRINDER [address] [place] [address] [facility] [address] [phone] Referral ID Status Reason Start Date Expiration Date V isits Requested Visits Authorized [id number] Closed Auto-Generate d Referral 06/09/2024 07/09/2025 1 1 [facility] Summary Purpose Family History Relationship Condition Age at Onset Recorded Date/T pascale father Diabetes mellitus Unknown grandmother Malignant neoplasm of colon Unknown Advance Directives Advance Directive Response Recorded Date/ Time Living Will No July 04 11:30am Power of Keymodule Assembly Supervisor No July 04, 2021 11:30am Advance Directive Response Recorded Date/ Time Living Will No July 04 10:30am Power of Keymodule Assembly Supervisor No July 04, 2021 10:30am Advance Directive Response Recorded Date/ Time Advance Directives on File No January 14, 2025 10:16am Living Will Yes January 14, 2025 10:38am Do you have a Healthcare Power of Keymodule Assembly Supervisor? Yes January 14, 2025 10:38am Advance Directive Response Recorded Date/ Time Advance Directives on File No January 14, 2025 10:16am Living Will Yes January 14, 2025 10:38am Do you have a Healthcare Pow er of Keymodule Assembly Supervisor? Yes January 14, 2025 10:38am Do you have a Healthcare Pow er of Keymodule Assembly Supervisor? Yes May 07, 2025 7:21am Name of Medical Power of Keymodule Assembly Supervisor Nicole Zuluaga neighbor May 07, 2025 7:21am Advance Directive Response Recorded Date/ Time Advance Directives on File No January 14, 2025 10:16am Living Will Yes January 14, 2025 10:38am Do you have a Healthcare Pow er of Keymodule Assembly Supervisor? Yes January 14, 2025 10:38am Do you have a Healthcare Pow er of Keymodule Assembly Supervisor? Yes May 07, 2025 3:30pm Name of Medical Power of Keymodule Assembly Supervisor Nicole Zuluaga neighbor May 07, 2025 7:21am Advance Directive Response Recorded Date/ Time Do you have a Healthcare Pow er of Keymodule Assembly Supervisor? Yes May 07, 2025 3:30pm Name of Medical Power of Keymodule Assembly Supervisor Nicole Zuluaga neighbor May 07, 2025 7:21am Do you have a Healthcare Pow er of Keymodule Assembly Supervisor? Yes May 18, 2025 3:50pm Name of Medical Power of Keymodule Assembly Supervisor Nicole Zuluaga, friend May 18, 2025 3:50pm Chief Complaint and Reason for Visit Chief Complaint 1 Y FU AV STENOSIS Reason for Visit Atherosclerotic hear t disease of [place] coronary artery without angina pectoris Essential hypertension Nonrheumatic aortic (valve) stenosis Pure hypercholesterolemia Chief Complaint AV STENOSIS Chief Complaint 1 Y FU PREV PFM PT Atherosclerotic heart disease of [place] coronary a DISCUSS HEART CATH PER MMM Reason for Visit Atherosclerotic hear t disease of [place] coronary artery without angina pectoris Essential hypertension Nonrheumatic aortic (valve) stenosis Pure hypercholesterolemia Atherosclerotic heart disease of [place] coronary artery without angina pectoris Essential hypertension Nonrheumatic aortic (valve) stenosis Pure hypercholesterolemia Chief Complaint Admit Date S/P TAVR January 14, 2025 9:5 3am S/P TAVR January 20, 2025 1:3 5pm Chief Complaint Admit Date S/P TAVR January 14, 2025 9:5 3am S/P TAVR January 25, 2025 1:0 0pm Chief Complaint Admit Date S/P TAVR January 14, 2025 9:5 3am S/P TAVR January 25, 2025 1:0 0pm S/P TAVR February 24, 2025 1:0 0pm S/P TAVR March 24, 2025 1:00p m Chief Complaint Admit Date S/P TAVR January 14, 2025 9:5 3am S/P TAVR January 25, 2025 1:0 0pm S/P TAVR February 24, 2025 1:0 0pm S/P TAVR March 24, 2025 1:00p m S/P TAVR April 02, 2025 1:00p m Chief Complaint Admit Date S/P TAVR January 14, 2025 9:5 3am S/P TAVR January 25, 2025 1:0 0pm S/P TAVR February 24, 2025 1:0 0pm S/P TAVR March 24, 2025 1:00p m S/P TAVR April 26, 2025 1:00 pm Chief Complaint Admit Date S/P TAVR January 14, 2025 9:5 3am S/P TAVR January 25, 2025 1:0 0pm S/P TAVR February 24, 2025 1:0 0pm S/P TAVR March 24, 2025 1:00p m S/P TAVR April 26, 2025 1:00 pm S/P TAVR April 28, 2025 1:16p m DISTAL LEFT FEMUR FRACTURE May 07 1:32pm Chief Complaint Admit Date S/P TAVR January 14, 2025 9:5 3am S/P TAVR January 25, 2025 1:0 0pm S/P TAVR February 24, 2025 1:0 0pm S/P TAVR March 24, 2025 1:00p m S/P TAVR April 26, 2025 1:00 pm S/P TAVR April 28, 2025 1:16p m DISTAL LEFT FEMUR FRACTURE May 07 1:32pm DISTAL LEFT FEMUR FRACTURE May 07 4:34pm DISTAL LEFT FEMUR FRACTURE May 08 6:45pm DISTAL LEFT FEMUR FRACTURE May 09 4:13pm DISTAL LEFT FEMUR FRACTURE May 10 6:22pm DISTAL LEFT FEMUR FRACTURE May 11 3:14pm DISTAL LEFT FEMUR FRACTURE May 12 4:12pm DISTAL LEFT FEMUR FRACTURE May 13 4:06pm DISTAL LEFT FEMUR FRACTURE May 14 10:01am Reason for Visit Admit Date Femoral distal fracture May 07, 2025 1:32pm Chief Complaint Admit Date S/P TAVR February 24, 2025 1:0 0pm S/P TAVR March 24, 2025 1:00p m S/P TAVR April 26, 2025 1:00 pm S/P TAVR April 28, 2025 1:16p m DISTAL LEFT FEMUR FRACTURE Marti 11th, 20 25 1:32pm DISTAL LEFT FEMUR FRACTURE May 07 4:34pm PREOP May 08, 2025 5:05 am DISTAL LEFT FEMUR FRACTURE May 08 6:45pm DISTAL LEFT FEMUR FRACTURE May 09 4:13pm DISTAL LEFT FEMUR FRACTURE May 10 6:22pm DISTAL LEFT FEMUR FRACTURE May 11 3:14pm DISTAL LEFT FEMUR FRACTURE May 12 4:12pm DISTAL LEFT FEMUR FRACTURE May 13 4:06pm DISTAL LEFT FEMUR FRACTURE May 14 10:01am SISTAL L FEMER May 14, 2025 2:44 pm Reason for Visit Admit Date Femoral distal fracture May 07, 2025 1:32pm Coronary artery disease May 14, 2025 2:44pm Debility May 14, 2025 2:44 pm DVT (deep venous thrombosis) May 14, 2025 2:44pm Essential (primary) hypertension May 142024 2:44pm Glaucoma May 14, 2025 2:44 pm Hyperlipidemia May 14, 2025 2:44 pm Insomnia May 14, 2025 2:44 pm Stroke May 14, 2025 2:44 pm Femoral distal fracture May 14, 2025 2:44pm Chief Complaint Admit Date S/P TAVR February 24, 2025 1:0 0pm S/P TAVR March 24, 2025 1:00p m S/P TAVR April 26, 2025 1:00 pm S/P TAVR April 28, 2025 1:16p m DISTAL LEFT FEMUR FRACTURE May 07 1:32pm DISTAL LEFT FEMUR FRACTURE May 07 4:34pm PREOP May 08, 2025 5:05 am DISTAL LEFT FEMUR FRACTURE May 08 6:45pm DISTAL LEFT FEMUR FRACTURE May 09 4:13pm DISTAL LEFT FEMUR FRACTURE May 10 6:22pm DISTAL LEFT FEMUR FRACTURE May 11 3:14pm DISTAL LEFT FEMUR FRACTURE May 12 4:12pm DISTAL LEFT FEMUR FRACTURE May 13 4:06pm DISTAL LEFT FEMUR FRACTURE May 14 10:01am SISTAL L FEMER May 14, 2025 2:44 pm Pain in left lower leg June 01, 2025 10:36am SISTAL L FEMER June 03, 2025 7:5 4am Reason for Visit Admit Date Femoral distal fracture May 07, 2025 1:32pm Coronary artery disease May 14, 2025 2:44pm Debility May 14, 2025 2:44 pm DVT (deep venous thrombosis) May 14, 2025 2:44pm Essential (primary) hypertension May [id number] 2:44pm Glaucoma May 14, 2025 2:44 pm Hyperlipidemia May 14, 2025 2:44 pm Insomnia May 14, 2025 2:44 pm Stroke May 14, 2025 2:44 pm Urinary retention May 14, 2025 2:44 pm Urinary tract infection May 14, 2025 2:44pm Femoral distal fracture May 14, 2025 2:44pm Reason for Referral Specialty Diagnoses / Procedures Referred By Contac t Referred To Contact Cardiology Diagnoses Aortic valve stenosis, etiology of cardiac valve disease unspecified Procedures CONSULT TO CARDIOLOGY OFFICE/OUTPATIENT [facility] 60 MINUTES Berta Rich PA-C [address] [address] [facility] [address] [place] [address] Referral ID Status Reason Start Date Expiration Date Visits Requested Visits Authorized [id number] Authorized PCP Requested Referral 04/23/2024 04/16/2025 1 1 Specialty Diagnoses / Procedures Referred By Contac t Referred To Contact Diagnoses Aortic valve stenosis, etiology of cardiac valve disease unspecified Procedures CONSULT TO INTERVENTIONAL CARDIOLOGY OFFICE/OUTPATIENT [facility] 60 MINUTES Azul Madrigal, SKIP.MEDICAL RECORDS SPECIALIST [address] [place] [address] Referral ID Status Reason Start Date Expiration Date Visits Requested Visits Authorized [id number] Authorized PCP Requested Referral 04/21/2024 04/21/2025 1 1 Specialty Diagnoses / Procedures Referred By Contac t Referred To Contact [facility] Procedures CARDIOVASCULAR MEDICINE [place] [address] [place] [address] [facility] [address] [place] [address] Referral ID Status Reason Start Date Expiration Date Visits Requested Visits Authorized [id number] Ref Not Required PCP Requested Referral 08/31/2024 08/31/2025 1 1 Specialty Diagnoses / Procedures Referred By Contac t Referred To Contact CT IMAGING Diagnoses Severe aortic stenosis by prior echocardiogram Encounter for preprocedural cardiovascular examination Aortic valve disorder Procedures CTA CHEST/ABD/PEL (GATED) W IVCON CT ANGIOGRAPHY CHEST W/CONTRAST/NONCONTRAST CT ANGIO ABD&PLVIS CNTRST MTRL W/WO CNTRST IMGES Kacy Jimenez APRN.NAPPER GRINDER [address] [place] [address] Ct Imaging [id number] Referral ID Status Reason Start Date Expiration Date V isits Requested Visits Authorized [id number] Closed Auto-Generate d Referral 08/12/2024 10/11/2024 1 1 Specialty Diagnoses / Procedures Referred By Contac t Referred To Contact [facility] Procedures CARDIOVASCULAR MEDICINE OP FOLLOW UP APPT ORDER Luab Llanes APRN.MEDICAL RECORDS SPECIALIST [address] [phone] [facility] [address] [address] Referral ID Status Reason Start Date Expiration Date Visits Requested Visits Authorized [id number] Ref Not Required PCP Requested Referral 09/09/2025 1 1 Specialty Diagnoses / Procedures Referred By Contac t Referred To Contact [facility] Procedures CARDIOVASCULAR MEDICINE OP FOLLOW UP APPT ORDER Kacy Jimenez APRN.NAPPER GRINDER [address] [place] [address] [facility] [address] [address] Referral ID Status Reason Start Date Expiration Date Visits Requested Visits Authorized [id number] Authorized PCP Requested Referral 10/29/2024 10/29/2025 1 1 Specialty Diagnoses / Procedures Referred By Contac t Referred To Contact [facility] Procedures CARDIOVASCULAR MEDICINE OP FOLLOW UP APPT ORDER Deng Koenig, MEDICAL RECORDS SPECIALIST [address] [facility] [address] [place] [address] [facility] [address] [place] [address] Referral ID Status Reason Start Date Expiration Date Visits Requested Visits Authorized [id number] Authorized PCP Requested Referral 11/10/2024 11/10/2025 1 1 Additional Source Comments INFORMATION SOURCE (unrecogn ized section and content) DATE CREATED AUTHOR 04/18/2018 [facility] DATE CREATED AUTHOR AUTHOR'S ORGANIZ ATION 04/18/2018 [facility] DATE CREATED AUTHOR AUTHOR'S ORGANIZ ATION 03/12/2025 [facility] DATE CREATED AUTHOR AUTHOR'S ORGANIZ ATION 06/11/2025 [facility] [place] (unrecognized section and content) Goals may be documented in a n alternate sectionGoals may be documented in an alternate sectionGoals may be documented in an alternate sectionGoals may be documented in an alternate sectionGoals may be documented in an alternate sectionGoals may be documented in an alternate sectionGoals may be documented in an alternate sectionGoals may be documented in an alternate sectionGoals may be documented in an alternate sectionGoals may be documented in an alternate sectionGoals may be documented in an alternate section Care Teams (unrecognized sec tion and content) Team Status: Active Member Role Status Dates Dr. Eh Huddleston MD Family Provider Active Dr. Eh Huddleston MD Primary Care Provider Active Team Status: Inactive Member Role Status Dates Dr. Eh Huddleston MD Primary Care Provider, Attending Provider Active Team Status: Inactive Member Role Status Dates Dr. Eh Huddleston MD Primary Care Provider, Referring Provider Active Eliana DOW PA Attending Provider Active Team Status: Active Member Role Status Dates Dr. Eh Huddleston MD Primary Care Provider Active Dr. Richy Coronado MD Attending Provider, Referring Pro vider Active Team Status: Inactive Member Role Status Dates Dr. Eh Huddleston MD Primary Care Provider Active Eliana DOW, PA Attending Provider, Referr ing Provider Active Audio Video Technician Relationship Specialty Start Date End Date Eh Huddleston Chi PCP - General Gerontology 12/27/17 Audio Video Technician Relationship Specialty Start Date End Date Eh Huddleston Chi PCP - General Gerontology 12/27/17 Audio Video Technician Relationship Specialty Start Date End Date Eh Huddleston Chi PCP - General Gerontology 12/27/17 03/25/24 Audio Video Technician Relationship Specialty Start Date End Date Eh Huddleston Chi [address] [place], [place] [id number] PCP - General Gerontology 08/31/24 Audio Video Technician Relationship Specialty Start Date End Date Eh Huddleston Chi [address] [place] [address] PCP - General Gerontology 08/31/24 Audio Video Technician Relationship Specialty Start Date End Date Eh Huddleston Chi [address] [place] [address] PCP - General Gerontology 08/31/24 Audio Video Technician Relationship Specialty Start Date End Date Eh Huddleston Chi [address] [place] [address] PCP - General Gerontology 08/31/24 Audio Video Technician Relationship Specialty Start Date End Date Eh Huddleston Chi [address] [place] [address] PCP - General Gerontology 08/31/24 Audio Video Technician Relationship Specialty Start Date End Date Eh Huddleston Chi [address] [place] [address] PCP - General Gerontology 08/31/24 Audio Video Technician Relationship Specialty Start Date End Date Eh Huddleston Chi [address] [place], [place] [address] PCP - General Gerontology 08/31/24 Audio Video Technician Relationship Specialty Start Date End Date Eh Huddleston Chi [address] [place], [place] [id number] PCP - General Gerontology 08/31/24 Audio Video Technician Relationship Specialty Start Date End Date Eh Huddleston Chi [address] [place], [place] [id number] PCP - General Gerontology 08/31/24 Audio Video Technician Relationship Specialty Start Date End Date Eh Huddleston Chi [address] [place] [address] PCP - General Gerontology 08/31/24 Audio Video Technician Relationship Specialty Start Date End Date Eh Huddleston Chi [address] [place], [place] [address] PCP - General Gerontology 08/31/24 Audio Video Technician Relationship Specialty Start Date End Date Eh Huddleston Chi [address] [place] [address] PCP - General Gerontology 08/31/24 Audio Video Technician Relationship Specialty Start Date End Date Eh Huddleston Chi [address] [place], [place] [id number] PCP - General Gerontology 08/31/24 Audio Video Technician Relationship Specialty Start Date End Date Eh Huddleston Chi [address] [place], [place] [id number] PCP - General Gerontology 08/31/24 Audio Video Technician Relationship Specialty Start Date End Date Eh Huddleston Chi [address] [place] [address] PCP - General Gerontology 08/31/24 Audio Video Technician Relationship Specialty Start Date End Date Eh Huddleston Chi [address] [place], [place] [address] PCP - General Gerontology 08/31/24 Audio Video Technician Relationship Specialty Start Date End Date Eh Huddleston Chi [address] [place], [place] [id number] PCP - General Gerontology 08/31/24 Team Status: Active Member Role Status Dates Dr. Eh Huddleston MD Primary Care Provider Active Team Status: Inactive Member Role Status Dates Dr. Eh Huddleston MD Primary Care Provider Active Start: October 01, 2024 End: October 01, 2024 Dr. Eh Huddleston MD Attending Provider Active Start: October 01, 2024 End: October 01, 2024 Team Status: Inactive Member Role Status Dates Dr. Eh Huddleston MD Primary Care Provider Active Start: January 14, 2025 End: January 14, 2025 RUSSELL DONALD Attending Provider Active Start: [facility] 2024 End: January 14, 2025 RUSSELL DONALD Referring Provider Active Start: [facility] 2024 End: January 14, 2025 Team Status: Active Member Role Status Dates Dr. Eh Huddleston MD Primary Care Provider Active Start: January 20, 2025 RUSSELL DONALD Attending Provider Active Start: [facility] 2024 RUSSELL DONALD Referring Provider Active Start: [facility] 2024 Team Status: Inactive Member Role Status Dates Dr. Eh Huddleston MD Primary Care Provider Active Start: January 25, 2025 End: January 25, 2025 RUSSELL DONALD Attending Provider Active Start: [facility] 2024 End: January 25, 2025 RUSSELL DONALD Referring Provider Active Start: [facility] 2024 End: January 25, 2025 Audio Video Technician Relationship Specialty Start Date End Date Eh Huddleston Chi [place] [address] [address] PCP - General Gerontology 08/31/24 Team Status: Inactive Member Role Status Dates Dr. Eh Huddleston MD Primary Care Provider Active Start: February 24, 2025 End: February 24, 2025 RUSSELL DONALD Attending Provider Active Start: [facility] 2024 End: February 24, 2025 RUSSELL DONALD Referring Provider Active Start: [facility] 2024 End: February 24, 2025 Team Status: Inactive Member Role Status Dates Dr. Eh Huddleston MD Primary Care Provider Active Start: March 24, 2025 End: March 27, 2025 RUSSELL DONALD Attending Provider Active Start: [place] 20[place] End: March 27, 2025 RUSSELL DOANLD Referring Provider Active Start: [facility] 2024 End: March 27, 2025 Team Status: Inactive Member Role Status Dates Dr. Eh Huddleston MD Primary Care Provider Active Start: March 31, 2025 End: March 31, 2025 Dr. Eh Huddleston MD Attending Provider Active Start: March 31, 2025 End: March 31, 2025 Dr. Eh Huddleston MD Referring Provider Active Start: March 31, 2025 End: March 31, 2025 Team Status: Active Member Role Status Dates Dr. Eh Huddleston MD Primary Care Provider Active Start: April 02, 2025 RUSSELL DONALD Attending Provider Active Start: [facility] 2024 RUSSELL DONALD Referring Provider Active Start: [facility] 2024 Team Status: Active Member Role/Relationship Status Dates Dr. Eh Huddleston MD Primary Care Provider Active Team Status: Inactive Member Role/Relationship Status Dates Dr. Eh Huddleston MD Primary Care Provider Active Start: January 14, 2025 End: January 14, 2025 RUSSELL DONALD Attending Provider Active Start: [facility] 2024 End: January 14, 2025 RUSSELL DONALD Referring Provider Active Start: [facility] 2024 End: January 14, 2025 Team Status: Inactive Member Role/Relationship Status Dates Dr. Eh Huddleston MD Primary Care Provider Active Start: January 25, 2025 End: January 25, 2025 RUSSELL DONALD Attending Provider Active Start: [facility] 2024 End: January 25, 2025 RUSSELL DONALD Referring Provider Active Start: [facility] 2024 End: January 25, 2025 Team Status: Inactive Member Role/Relationship Status Dates Dr. Eh Huddleston MD Primary Care Provider Active Start: February 24, 2025 End: February 24, 2025 RUSSELL DONALD Attending Provider Active Start: [facility] 2024 End: February 24, 2025 RUSSELL DONALD Referring Provider Active Start: [facility] 2024 End: February 24, 2025 Team Status: Inactive Member Role/Relationship Status Dates Dr. Eh Huddleston MD Primary Care Provider Active Start: March 24, 2025 End: March 27, 2025 RUSSELL DONALD Attending Provider Active Start: [facility] 2024 End: March 27, 2025 RUSSELL DONALD Referring Provider Active Start: [facility] 2024 End: March 27, 2025 Team Status: Inactive Member Role/Relationship Status Dates Dr. Eh Huddleston MD Primary Care Provider Active Start: March 31, 2025 End: March 31, 2025 Dr. Eh Huddleston MD Attending Provider Active Start: March 31, 2025 End: March 31, 2025 Dr. Eh Huddleston MD Referring Provider Active Start: March 31, 2025 End: March 31, 2025 Team Status: Inactive Member Role/Relationship Status Dates Dr. Eh Huddleston MD Primary Care Provider Active Start: April 26, 2025 End: April 26, 2025 RUSSELL DONALD Attending Provider Active Start: [facility] 2024 End: April 26, 2025 RUSSELL DONALD Referring Provider Active Start: [facility] 2024 End: April 26, 2025 Team Status: Active Member Role/Relationship Status Dates Dr. Eh Huddleston MD Primary Care Provider Active Start: April 28, 2025 RUSSELL DONALD Attending Provider Active Start: [facility] 2024 RUSSELL DONALD Referring Provider Active Start: [facility] 2024 Team Status: Active Member Role/Relationship Status Dates Dr. Eh Huddleston MD Primary Care Provider Active Start: May 07, 2025 Dr. José Manuel Guzman DO Emergency Provider Activ e Start: May 07, 2025 Dr. Sourav Casiano DO Admit Provider Active S tart: May 07, 2025 Dr. Sourav Casiano DO Attending Provider Active Start: May 07, 2025 Team Status: Inactive Member Role/Relationship Status Dates Dr. Eh Huddleston MD Primary Care Provider Active Start: May 07, 2025 End: May 14, 2025 Dr. José Manuel Guzman DO Emergency Provider Activ e Start: May 07, 2025 End: May 14, 2025 Dr. Sourav Casiano DO Admit Provider Active S tart: May 07, 2025 End: May 14, 2025 Dr. Sourav Casiano DO Other Provider Active S tart: May 07, 2025 End: May 14, 2025 Dr. Manny Murdock MD Attending Provider Active Start: May 07, 2025 End: May 14, 2025 Dr. Santhosh Livingston DO Other Provider Active Start: May 07, 2025 End: May 14, 2025 Nathan Heredia MD Other Provider Active Start: 2024 End: May 14, 2025 Dr. Des Link MD Other Provider Active Start: May 07, 2025 End: May 14, 2025 Georgina Sosa MD Other Provider Active Start : May 07, 2025 End: May 14, 2025 Dr. Sondra Lira DO Other Provider Active St art: May 07, 2025 End: May 14, 2025 Dr. Elva Maxwell MD Other Provider Active Start: May 07, 2025 End: May 14, 2025 Dr. Seng Daniel MD Other Provider Active Sta rt: May 07, 2025 End: May 14, 2025 Dr. Deann Santana MD Other Provider Active Start : May 07, 2025 End: May 14, 2025 Dr. Peiro Richard MD Other Provider Active Start: May 07, 2025 End: May 14, 2025 Dr. Marco Zafar MD Other Provider Active Start : May 07, 2025 End: May 14, [address] MD Other Provider Active Sta rt: May 07, 2025 End: May 14, 2025 Melissa Quinonez MD Other Provider Active Start : May 07, 2025 End: May 14, 2025 Dr. Malachi Charles MD Other Provider Active St art: May 07, 2025 End: May 14, 2025 Dr. Kayla Perez MD Other Provider Active Start : May 07, 2025 End: May 14, 2025 Dr. Maikel Arreaga MD Other Provider Active Sta rt: May 07, 2025 End: May 14, 2025 Dr. Maria Guadalupe Rocha MD Other Provider Active Start: May 07, 2025 End: May 14, 2025 Dr. Domenic Blanco MD Other Provider Active St art: May 07, 2025 End: May 14, 2025 Dr. Mp Petersen MD Other Provider Active Star t: May 07, 2025 End: May 14, 2025 Dr. Yordan Alfaro MD Other Provider Active St art: May 07, 2025 End: May 14, 2025 Dr. Yolanda Arriola MD Other Provider Active Start: May 07, 2025 End: May 14, 2025 Benjamín Trinidad MD Other Provider Active Start: May 07, 2025 End: May 14, 2025 Team Status: Active Member Role/Relationship Status Dates Dr. Eh Huddleston MD Primary Care Provider Active Start: May 07, 2025 Dr. José Manuel Guzman , DO Emergency Provider Activ e Start: May 07, 2025 Dr. Sourav Casiano , DO Admit Provider Active S tart: May 07, 2025 Dr. Sourav Casiano , DO Attending Provider Active Start: May 07, 2025 Dr. Sourav Casiano , DO Other Provider Active S tart: May 07, 2025 Dr. Santhosh Livingston , Other Provider Active Start: May 07, 2025 Team Status: Active Member Role/Relationship Status Dates Dr. Eh Huddleston MD Primary Care Provider Active Start: May 08, 2025 Dr. José Manuel Guzman , DO Emergency Provider Activ e Start: May 08, 2025 Dr. Sourav Casiano , DO Admit Provider Active S tart: May 08, 2025 Dr. Sourav Casiano , DO Attending Provider Active Start: May 08, 2025 Dr. Sourav Casiano , DO Other Provider Active S tart: May 08, 2025 Dr. Santhosh Livingston , DO Other Provider Active Start: May 08, 2025 Team Status: Active Member Role/Relationship Status Dates Dr. Eh Huddleston MD Primary Care Provider Active Start: May 09, 2025 Dr. José Manuel Guzman , DO Emergency Provider Activ e Start: May 09, 2025 Dr. Sourav Casiano , DO Admit Provider Active S tart: May 09, 2025 Dr. Sourav Casiano , DO Attending Provider Active Start: May 09, 2025 Dr. Sourav Casiano , DO Other Provider Active S tart: May 09, 2025 Dr. Santhosh Livingston , DO Other Provider Active Start: May 09, 2025 Team Status: Active Member Role/Relationship Status Dates Dr. Eh Huddleston MD Primary Care Provider Active Start: May 10, 2025 Dr. José Manuel Guzman , DO Emergency Provider Activ e Start: May 10, 2025 Dr. Sourav Casiano , DO Admit Provider Active S tart: May 10, 2025 Dr. Sourav Casiano , DO Attending Provider Active Start: May 10, 2025 Dr. Sourav Casiano , DO Other Provider Active S tart: May 10, 2025 Dr. Santhosh Livingston , DO Other Provider Active Start: May 10, 2025 Team Status: Active Member Role/Relationship Status Dates Dr. Eh Huddleston MD Primary Care Provider Active Start: May 11, 2025 Dr. José Manuel Guzman , DO Emergency Provider Activ e Start: May 11, 2025 Dr. Sourav Casiano , DO Admit Provider Active S tart: May 11, 2025 Dr. Sourav Casiano , DO Attending Provider Active Start: May 11, 2025 Dr. Sourav Casiano , DO Other Provider Active S tart: May 11, 2025 Dr. Santhosh Livingston , DO Other Provider Active Start: May 11, 2025 Team Status: Active Member Role/Relationship Status Dates Dr. Eh Huddleston MD Primary Care Provider Active Start: May 11, 2025 Dr. Tracy Kaur MD Attending Provider Active Start: May 11, 2025 Team Status: Active Member Role/Relationship Status Dates Dr. Eh Huddleston MD Primary Care Provider Active Start: May 12, 2025 Dr. José Manuel Guzman , DO Emergency Provider Activ e Start: May 12, 2025 Dr. Sourav Casiano , DO Admit Provider Active S tart: May 12, 2025 Dr. Sourav Casiano , DO Other Provider Active S tart: May 12, 2025 Dr. Manny Murdock MD Attending Provider Active Start: May 12, 2025 Dr. Manny Murdock MD Other Provider Active Sta rt: May 12, 2025 Dr. Santhosh Livingston DO Other Provider Active Start: May 12, 2025 Nathan Heredia MD Other Provider Active Start: 2024 Dr. Des Link MD Other Provider Active Start: May 12, 2025 Georgina Sosa MD Other Provider Active Start : May 12, 2025 Dr. Sondra Lira DO Other Provider Active St art: May 12, 2025 Dr. Elva Maxwell MD Other Provider Active Start: May 12, 2025 Dr. Seng Daniel MD Other Provider Active Sta rt: May 12, 2025 Dr. Deann Santana MD Other Provider Active Start : May 12, 2025 Dr. Piero Richard MD Other Provider Active Start: May 12, 2025 Dr. Marco Zafar MD Other Provider Active Start : May 12, [address] MD Other Provider Active Sta rt: May 12, 2025 Melissa Quinonez MD Other Provider Active Start : May 12, 2025 Dr. Malachi Charles MD Other Provider Active St art: May 12, 2025 Dr. Kayla Perez MD Other Provider Active Start : May 12, 2025 Dr. Maikel Arreaga MD Other Provider Active Sta rt: May 12, 2025 Dr. Maria Guadalupe Rocha MD Other Provider Active Start: May 12, 2025 Dr. Domenic Blanco MD Other Provider Active St art: May 12, 2025 Dr. Mp Petersen MD Other Provider Active Star t: May 12, 2025 Dr. Yordan Alfaro MD Other Provider Active St art: May 12, 2025 Dr. Yolanda Arriola MD Other Provider Active Start: May 12, 2025 Benjamín Trinidad MD Other Provider Active Start: May 12, 2025 Team Status: Active Member Role/Relationship Status Dates Dr. Eh Huddleston MD Primary Care Provider Active Start: May 13, 2025 Dr. José Manuel Guzman , Emergency Provider Activ e Start: May 13, 2025 Dr. Sourav Casiano , DO Admit Provider Active S tart: May 13, 2025 Dr. Sourav Casiano , Other Provider Active S tart: May 13, 2025 Dr. Manny Murdock MD Attending Provider Active Start: May 13, 2025 Dr. Manny Murdock MD Other Provider Active Sta rt: May 13, 2025 Dr. Santhosh Livingston DO Other Provider Active Start: May 13, 2025 Nathan Heredia MD Other Provider Active Start: 2024 Dr. Des Link MD Other Provider Active Start: May 13, 2025 Georgina Sosa MD Other Provider Active Start : May 13, 2025 Dr. Sondra Lira DO Other Provider Active St art: May 13, 2025 Dr. Elva Maxwell MD Other Provider Active Start: May 13, 2025 Dr. Seng Daniel MD Other Provider Active Sta rt: May 13, 2025 Dr. Deann Santana MD Other Provider Active Start : May 13, 2025 Dr. Piero Richard MD Other Provider Active Start: May 13, 2025 Dr. Marco Zafar MD Other Provider Active Start : May 13, [address] MD Other Provider Active Sta rt: May 13, 2025 Melissa Quinonez MD Other Provider Active Start : May 13, 2025 Dr. Malachi Charles MD Other Provider Active St art: May 13, 2025 Dr. Kayla Perez MD Other Provider Active Start : May 13, 2025 Dr. Maikel Arreaga MD Other Provider Active Sta rt: May 13, 2025 Dr. Maria Guadalupe Rocha MD Other Provider Active Start: May 13, 2025 Dr. Domenic Blanco MD Other Provider Active St art: May 13, 2025 Dr. Mp Petersen MD Other Provider Active Star t: May 13, 2025 Dr. Yordan Alfaro MD Other Provider Active St art: May 13, 2025 Dr. Yolanda Arriola MD Other Provider Active Start: May 13, 2025 Benjamín Trinidad MD Other Provider Active Start: May 13, 2025 Team Status: Active Member Role/Relationship Status Dates Dr. Eh Huddleston MD Primary Care Provider Active Start: May 14, 2025 Dr. José Manuel Guzman , Emergency Provider Activ e Start: May 14, 2025 Dr. Sourav Casiano DO Admit Provider Active S tart: May 14, 2025 Dr. Sourav Casiano , Other Provider Active S tart: May 14, 2025 Dr. Manny Murdock MD Attending Provider Active Start: May 14, 2025 Dr. Manny Murdock MD Other Provider Active Sta rt: May 14, 2025 Dr. Santhosh Livingston DO Other Provider Active Start: May 14, 2025 Nathan Heredia MD Other Provider Active Start: 2024 Dr. Des Link MD Other Provider Active Start: May 14, 2025 Georgina Sosa MD Other Provider Active Start : May 14, 2025 Dr. Sondra Lira DO Other Provider Active St art: May 14, 2025 Dr. Elva Maxwell MD Other Provider Active Start: May 14, 2025 Dr. Seng Daniel MD Other Provider Active Sta rt: May 14, 2025 Dr. Deann Santana MD Other Provider Active Start : May 14, 2025 Dr. Piero Richard MD Other Provider Active Start: May 14, 2025 Dr. aMrco Zafar MD Other Provider Active Start : May 14, [address] MD Other Provider Active Sta rt: May 14, 2025 Melissa Quinonez MD Other Provider Active Start : May 14, 2025 Dr. Malachi Charles MD Other Provider Active St art: May 14, 2025 Dr. Kayla Perez MD Other Provider Active Start : May 14, 2025 Dr. Maikel Arreaga MD Other Provider Active Sta rt: May 14, 2025 Dr. Maria Guadalupe Rocha MD Other Provider Active Start: May 14, 2025 Dr. Domenic Blanco MD Other Provider Active St art: May 14, 2025 Dr. Mp Petersen MD Other Provider Active Star t: May 14, 2025 Dr. Yordan Alfaro MD Other Provider Active St art: May 14, 2025 Dr. Yolanda Arriola MD Other Provider Active Start: May 14, 2025 Benjamín Trinidad MD Other Provider Active Start: May 14, 2025 Team Status: Inactive Member Role/Relationship Status Dates Dr. Eh Huddleston MD Primary Care Provider Active Start: February 24, 2025 End: February 24, 2025 RUSSELL DONALD Attending Provider Active Start: [facility] 2024 End: February 24, 2025 RUSSELL DONALD Referring Provider Active Start: [facility] 2024 End: February 24, 2025 Team Status: Inactive Member Role/Relationship Status Dates Dr. Eh Huddleston MD Primary Care Provider Active Start: March 24, 2025 End: March 27, 2025 RUSSELL DONALD Attending Provider Active Start: [facility] 2024 End: March 27, 2025 RUSSELL DONALD Referring Provider Active Start: [facility] 2024 End: March 27, 2025 Team Status: Inactive Member Role/Relationship Status Dates Dr. Eh Huddleston MD Primary Care Provider Active Start: March 31, 2025 End: March 31, 2025 Dr. Eh Huddleston MD Attending Provider Active Start: March 31, 2025 End: March 31, 2025 Dr. Eh Huddleston MD Referring Provider Active Start: March 31, 2025 End: March 31, 2025 Team Status: Inactive Member Role/Relationship Status Dates Dr. Eh Huddleston MD Primary Care Provider Active Start: April 26, 2025 End: April 26, 2025 RUSSELL DONALD Attending Provider Active Start: [facility] 2024 End: April 26, 2025 RUSSELL DONALD Referring Provider Active Start: [place] 2024 End: April 26, 2025 Team Status: Inactive Member Role/Relationship Status Dates Dr. Eh Huddleston MD Primary Care Provider Active Start: April 28, 2025 End: May 27, 2025 RUSSELL DONALD Attending Provider Active Start: [place] 2024 End: May 27, 2025 RUSSELL DONALD Referring Provider Active Start: [place] 2024 End: May 27, 2025 Team Status: Inactive Member Role/Relationship Status Dates Dr. Eh Huddleston MD Primary Care Provider Active Start: May 07, 2025 End: May 14, 2025 Dr. José Manuel Guzman , DO Emergency Provider Activ e Start: May 07, 2025 End: May 14, 2025 Dr. Sourav Casiano , Admit Provider Active S tart: May 07, 2025 End: May 14, 2025 Dr. Sourav Casiano , Other Provider Active S tart: May 07, 2025 End: May 14, 2025 Dr. Manny Murdock MD Attending Provider Active Start: May 07, 2025 End: May 14, 2025 Dr. Santhosh Livingston , Other Provider Active Start: May 07, 2025 End: May 14, 2025 Natahn Heredia MD Other Provider Active Start: [facility] 2024 End: May 14, 2025 Dr. Des Link MD Other Provider Active Start: May 07, 2025 End: May 14, 2025 Georgina Sosa MD Other Provider Active Start : May 07, 2025 End: May 14, 2025 Dr. Sondra Lira , Other Provider Active St art: May 07, 2025 End: May 14, 2025 Dr. Elva Maxwell MD Other Provider Active Start: May 07, 2025 End: May 14, 2025 Dr. Seng Daniel MD Other Provider Active Sta rt: May 07, 2025 End: May 14, 2025 Dr. Deann Santana MD Other Provider Active Start : May 07, 2025 End: May 14, 2025 Dr. Piero Richard MD Other Provider Active Start: May 07, 2025 End: May 14, 2025 Dr. Marco Zafar MD Other Provider Active Start : May 07, 2025 End: May 14, [address] MD Other Provider Active Sta rt: May 07, 2025 End: May 14, 2025 Melissa Quinonez MD Other Provider Active Start : May 07, 2025 End: May 14, 2025 Dr. Malachi Charles MD Other Provider Active St art: May 07, 2025 End: May 14, 2025 Dr. Kayla Perez MD Other Provider Active Start : May 07, 2025 End: May 14, 2025 Dr. Maikel Arreaga MD Other Provider Active Sta rt: May 07, 2025 End: May 14, 2025 Dr. Maria Guadalupe Rocha MD Other Provider Active Start: May 07, 2025 End: May 14, 2025 Dr. Dmoenic Blanco MD Other Provider Active St art: May 07, 2025 End: May 14, 2025 Dr. Mp Petersen MD Other Provider Active Star t: May 07, 2025 End: May 14, 2025 Dr. Yordan Alfaro MD Other Provider Active St art: May 07, 2025 End: May 14, 2025 Dr. Yolanda Arriola MD Other Provider Active Start: May 07, 2025 End: May 14, 2025 Benjamín Trinidad MD Other Provider Active Start: May 07, 2025 End: May 14, 2025 Team Status: Active Member Role/Relationship Status Dates Dr. Eh Huddleston MD Primary Care Provider Active Start: May 07, 2025 Dr. José Manuel Guzman , Emergency Provider Activ e Start: May 07, 2025 Dr. Sourav Casiano , Admit Provider Active S tart: May 07, 2025 Dr. Sourav Casiano , Attending Provider Active Start: May 07, 2025 Dr. Sourav Casiano , Other Provider Active S tart: May 07, 2025 Dr. Santhosh Livingston , Other Provider Active Start: May 07, 2025 Team Status: Active Member Role/Relationship Status Dates Dr. Eh Huddleston MD Primary Care Provider Active Start: May 08, 2025 End: May 08, 2025 Dr. Azul Pratt MD Attending Provider Active Start: May 08, 2025 End: May 08, 2025 Dr. Jim Jones MD Referring Provider Active St art: May 08, 2025 End: May 08, 2025 Team Status: Active Member Role/Relationship Status Dates Dr. Eh Huddleston MD Primary Care Provider Active Start: May 08, 2025 Dr. José Manuel Guzman , DO Emergency Provider Activ e Start: May 08, 2025 Dr. Sourav Casiano , DO Admit Provider Active S tart: May 08, 2025 Dr. Sourav Casiano , DO Attending Provider Active Start: May 08, 2025 Dr. Sourav Casiano , DO Other Provider Active S tart: May 08, 2025 Dr. Santhosh Livingston , DO Other Provider Active Start: May 08, 2025 Team Status: Active Member Role/Relationship Status Dates Dr. Eh Huddleston MD Primary Care Provider Active Start: May 09, 2025 Dr. José Manuel Guzman , DO Emergency Provider Activ e Start: May 09, 2025 Dr. Sourav Casiano , DO Admit Provider Active S tart: May 09, 2025 Dr. Sourav Casiano , DO Attending Provider Active Start: May 09, 2025 Dr. Sourav Casiano , DO Other Provider Active S tart: May 09, 2025 Dr. Santhosh Livingston , DO Other Provider Active Start: May 09, 2025 Team Status: Active Member Role/Relationship Status Dates Dr. Eh Huddleston MD Primary Care Provider Active Start: May 10, 2025 Dr. José Manuel Guzman , DO Emergency Provider Activ e Start: May 10, 2025 Dr. Sourav Casiano , DO Admit Provider Active S tart: May 10, 2025 Dr. Sourav Casiano , DO Attending Provider Active Start: May 10, 2025 Dr. Sourav Casiano , DO Other Provider Active S tart: May 10, 2025 Dr. Santhosh Livingston , DO Other Provider Active Start: May 10, 2025 Team Status: Active Member Role/Relationship Status Dates Dr. Eh Huddleston MD Primary Care Provider Active Start: May 11, 2025 Dr. José Manuel Guzman DO Emergency Provider Activ e Start: May 11, 2025 Dr. Sourav Casiano , Admit Provider Active S tart: May 11, 2025 Dr. Sourav Casiano DO Attending Provider Active Start: May 11, 2025 Dr. Sourav Casiano , Other Provider Active S tart: May 11, 2025 Dr. Santhosh Livingston DO Other Provider Active Start: May 11, 2025 Team Status: Active Member Role/Relationship Status Dates Dr. Eh Huddleston MD Primary Care Provider Active Start: May 11, 2025 Dr. Tracy Kaur MD Attending Provider Active Start: May 11, 2025 Team Status: Active Member Role/Relationship Status Dates Dr. Eh Huddleston MD Primary Care Provider Active Start: May 12, 2025 Dr. José Manuel Guzman DO Emergency Provider Activ e Start: May 12, 2025 Dr. Sourav Casiano DO Admit Provider Active S tart: May 12, 2025 Dr. Sourav Casiano DO Other Provider Active S tart: May 12, 2025 Dr. Manny Murdock MD Attending Provider Active Start: May 12, 2025 Dr. Manny Murdock MD Other Provider Active Sta rt: May 12, 2025 Dr. Santhosh Livingston DO Other Provider Active Start: May 12, 2025 Nathan Heredia MD Other Provider Active Start: 2024 Dr. Des Link MD Other Provider Active Start: May 12, 2025 Georgina Sosa MD Other Provider Active Start : May 12, 2025 Dr. Sondra Lira , Other Provider Active St art: May 12, 2025 Dr. Elva Maxwell MD Other Provider Active Start: May 12, 2025 Dr. Seng Daniel MD Other Provider Active Sta rt: May 12, 2025 Dr. Deann Santana MD Other Provider Active Start : May 12, 2025 Dr. Piero Richard MD Other Provider Active Start: May 12, 2025 Dr. Marco Zafar MD Other Provider Active Start : May 12, [address] MD Other Provider Active Sta rt: May 12, 2025 Melissa Quinonez MD Other Provider Active Start : May 12, 2025 Dr. Malachi Charles MD Other Provider Active St art: May 12, 2025 Dr. Kayla Perez MD Other Provider Active Start : May 12, 2025 Dr. Maikel Arreaga MD Other Provider Active Sta rt: May 12, 2025 Dr. Maria Guadalupe Rocha MD Other Provider Active Start: May 12, 2025 Dr. Domenic Blanco MD Other Provider Active St art: May 12, 2025 Dr. Mp Petersen MD Other Provider Active Star t: May 12, 2025 Dr. Yordan Alfaro MD Other Provider Active St art: May 12, 2025 Dr. Yolanda Arriola MD Other Provider Active Start: May 12, 2025 Benjamín Trinidad MD Other Provider Active Start: May 12, 2025 Team Status: Active Member Role/Relationship Status Dates Dr. Eh Huddleston MD Primary Care Provider Active Start: May 13, 2025 Dr. José Manuel Guzman DO Emergency Provider Activ e Start: May 13, 2025 Dr. Sourav Casiano DO Admit Provider Active S tart: May 13, 2025 Dr. Sourav Casiano , Other Provider Active S tart: May 13, 2025 Dr. Manny Murdock MD Attending Provider Active Start: May 13, 2025 Dr. Manny Murdock MD Other Provider Active Sta rt: May 13, 2025 Dr. Santhosh Livingston DO Other Provider Active Start: May 13, 2025 Nathan Heredia MD Other Provider Active Start: 2024 Dr. Des Link MD Other Provider Active Start: May 13, 2025 Georgina Soas MD Other Provider Active Start : May 13, 2025 Dr. Sondra Lira DO Other Provider Active St art: May 13, 2025 Dr. Elva Maxwell MD Other Provider Active Start: May 13, 2025 Dr. Seng Daniel MD Other Provider Active Sta rt: May 13, 2025 Dr. Deann Santana MD Other Provider Active Start : May 13, 2025 Dr. Piero Richard MD Other Provider Active Start: May 13, 2025 Dr. Marco Zafar MD Other Provider Active Start : May 13, [address] MD Other Provider Active Sta rt: May 13, 2025 Melissa Quinonez MD Other Provider Active Start : May 13, 2025 Dr. Malachi Charles MD Other Provider Active St art: May 13, 2025 Dr. Kayla Perez MD Other Provider Active Start : May 13, 2025 Dr. Maikel Arreaga MD Other Provider Active Sta rt: May 13, 2025 Dr. Maria Guadalupe Rocha MD Other Provider Active Start: May 13, 2025 Dr. Domenic Blanco MD Other Provider Active St art: May 13, 2025 Dr. Mp Petersen MD Other Provider Active Star t: May 13, 2025 Dr. Yordan Alfaro MD Other Provider Active St art: May 13, 2025 Dr. Yolanda Arriola MD Other Provider Active Start: May 13, 2025 Benjamín Trinidad MD Other Provider Active Start: May 13, 2025 Team Status: Active Member Role/Relationship Status Dates Dr. Eh Huddleston MD Primary Care Provider Active Start: May 14, 2025 Dr. José Manuel Guzman , Emergency Provider Activ e Start: May 14, 2025 Dr. Sourav Casiano , DO Admit Provider Active S tart: May 14, 2025 Dr. Sourav Casiano , DO Other Provider Active S tart: May 14, 2025 Dr. Manny Murdock MD Attending Provider Active Start: May 14, 2025 Dr. Manny Murdock MD Other Provider Active Sta rt: May 14, 2025 Dr. Santhosh Livingston , Other Provider Active Start: May 14, 2025 Nathan Heredia MD Other Provider Active Start: 2024 Dr. Des Link MD Other Provider Active Start: May 14, 2025 Georgina Sosa MD Other Provider Active Start : May 14, 2025 Dr. Sondra Lira , Other Provider Active St art: May 14, 2025 Dr. Elva Maxwell MD Other Provider Active Start: May 14, 2025 Dr. Seng Daniel MD Other Provider Active Sta rt: May 14, 2025 Dr. Deann Santana MD Other Provider Active Start : May 14, 2025 Dr. Piero Richard MD Other Provider Active Start: May 14, 2025 Dr. Marco Zafar MD Other Provider Active Start : May 14, [address] MD Other Provider Active Sta rt: May 14, 2025 Melissa Quinonez MD Other Provider Active Start : May 14, 2025 Dr. Malachi Charles MD Other Provider Active St art: May 14, 2025 Dr. Kayla Perez MD Other Provider Active Start : May 14, 2025 Dr. Maikel Arreaga MD Other Provider Active Sta rt: May 14, 2025 Dr. Maria Guadalupe Rocha MD Other Provider Active Start: May 14, 2025 Dr. Domenic Blanco MD Other Provider Active St art: May 14, 2025 Dr. Mp Petersen MD Other Provider Active Star t: May 14, 2025 Dr. Yordan Alfaro MD Other Provider Active St art: May 14, 2025 Dr. Yolanda Arriola MD Other Provider Active Start: May 14, 2025 Benjamín Trinidad MD Other Provider Active Start: May 14, 2025 Team Status: Active Member Role/Relationship Status Dates Dr. Eh Huddleston MD Primary Care Provider Active Start: May 14, 2025 Dr. Eh Huddleston MD Admit Provider Active Star t: May 14, 2025 Dr. Eh Huddleston MD Attending Provider Active Start: May 14, 2025 Team Status: Inactive Member Role/Relationship Status Dates Dr. Eh Huddleston MD Primary Care Provider Active Start: May 14, 2025 End: June 07, 2025 Dr. Eh Huddleston MD Admit Provider Active Star t: May 14, 2025 End: June 07, 2025 Dr. Eh Huddleston MD Attending Provider Active Start: May 14, 2025 End: June 07, 2025 Dr. Katelyn Kuhn MD Other Provider Active Sta rt: May 14, 2025 End: June 07, 2025 Team Status: Active Member Role/Relationship Status Dates Dr. Eh Huddleston MD Primary Care Provider Active Start: June 01, 2025 Dr. Eh Huddleston MD Attending Provider Active Start: June 01, 2025 Dr. Eh Huddleston MD Referring Provider Active Start: June 01, 2025 Team Status: Active Member Role/Relationship Status Dates Dr. Eh Huddleston MD Primary Care Provider Active Start: June 01, 2025 Dr. Basim Murillo MD Attending Provider Active S tart: June 01, 2025 Team Status: Active Member Role/Relationship Status Dates Dr. Eh Huddleston MD Primary Care Provider Active Start: June 03, 2025 Dr. Eh Huddleston MD Admit Provider Active Star t: June 03, 2025 Dr. Eh Huddleston MD Other Provider Active Star t: June 03, 2025 Dr. Katelyn Kuhn MD Attending Provider Active Start: June 03, 2025 Team Status: Inactive Member Role/Relationship Status Dates Dr. Eh Huddleston MD Primary Care Provider Active Start: June 01, 2025 End: June 01, 2025 Dr. Eh Huddleston MD Attending Provider Active Start: June 01, 2025 End: June 01, 2025 Dr. Eh Huddleston MD Referring Provider Active Start: June 01, 2025 End: June 01, 2025 Team Status: Active Member Role/Relationship Status Dates Dr. Eh Huddleston MD Primary Care Provider Active Start: June 08, 2025 Dr. Vimal SALMERON MD Attending Provider Active Start: June 08, 2025 Audio Video Technician Relationship Specialty Start Date End Date Eh Huddleston [facility] [address] [place] [id number] PCP - General Gerontology 08/31/24 Source Comments (unrecognize d section and content) In the event this informatio n is protected by the Federal Confidentiality of Alcohol and Drug Abuse Patient Records regulations: The Federal rules restrict any use of the information to criminally investigate or prosecute any alcohol or drug abuse patient.[facility] the event this information is protected by the Federal Confidentiality of Alcohol and Drug Abuse Patient Records regulations: The Federal rules restrict any use of the information to criminally investigate or prosecute any alcohol or drug abuse patient.[facility] CenterIn the event this information is protected by the Federal Confidentiality of Alcohol and Drug Abuse Patient Records regulations: The Federal rules restrict any use of the information to criminally investigate or prosecute any alcohol or drug abuse patient.[facility] CenterIn the event this information is protected by the Federal Confidentiality of Alcohol and Drug Abuse Patient Records regulations: The Federal rules restrict any use of the information to criminally investigate or prosecute any alcohol or drug abuse patient.[facility] CenterIn the event this information is protected by the Federal Confidentiality of Alcohol and Drug Abuse Patient Records regulations: The Federal rules restrict any use of the information to criminally investigate or prosecute any alcohol or drug abuse patient.[facility] CenterIn the event this information is protected by the Federal Confidentiality of Alcohol and Drug Abuse Patient Records regulations: The Federal rules restrict any use of the information to criminally investigate or prosecute any alcohol or drug abuse patient.[facility] CenterIn the event this information is protected by the Federal Confidentiality of Alcohol and Drug Abuse Patient Records regulations: The Federal rules restrict any use of the information to criminally investigate or prosecute any alcohol or drug abuse patient.[facility] CenterIn the event this information is protected by the Federal Confidentiality of Alcohol and Drug Abuse Patient Records regulations: The Federal rules restrict any use of the information to criminally investigate or prosecute any alcohol or drug abuse patient.[facility] CenterIn the event this information is protected by the Federal Confidentiality of Alcohol and Drug Abuse Patient Records regulations: The Federal rules restrict any use of the information to criminally investigate or prosecute any alcohol or drug abuse patient.[facility] CenterIn the event this information is protected by the Federal Confidentiality of Alcohol and Drug Abuse Patient Records regulations: The Federal rules restrict any use of the information to criminally investigate or prosecute any alcohol or drug abuse patient.[facility] CenterIn the event this information is protected by the Federal Confidentiality of Alcohol and Drug Abuse Patient Records regulations: The Federal rules restrict any use of the information to criminally investigate or prosecute any alcohol or drug abuse patient.[facility] CenterIn the event this information is protected by the Federal Confidentiality of Alcohol and Drug Abuse Patient Records regulations: The Federal rules restrict any use of the information to criminally investigate or prosecute any alcohol or drug abuse patient.[facility] CenterIn the event this information is protected by the Federal Confidentiality of Alcohol and Drug Abuse Patient Records regulations: The Federal rules restrict any use of the information to criminally investigate or prosecute any alcohol or drug abuse patient.[facility] CenterIn the event this information is protected by the Federal Confidentiality of Alcohol and Drug Abuse Patient Records regulations: The Federal rules restrict any use of the information to criminally investigate or prosecute any alcohol or drug abuse patient.[facility] CenterIn the event this information is protected by the Federal Confidentiality of Alcohol and Drug Abuse Patient Records regulations: The Federal rules restrict any use of the information to criminally investigate or prosecute any alcohol or drug abuse patient.[facility] CenterIn the event this information is protected by the Federal Confidentiality of Alcohol and Drug Abuse Patient Records regulations: The Federal rules restrict any use of the information to criminally investigate or prosecute any alcohol or drug abuse patient.[facility] CenterIn the event this information is protected by the Federal Confidentiality of Alcohol and Drug Abuse Patient Records regulations: The Federal rules restrict any use of the information to criminally investigate or prosecute any alcohol or drug abuse patient.[facility] CenterIn the event this information is protected by the Federal Confidentiality of Alcohol and Drug Abuse Patient Records regulations: The Federal rules restrict any use of the information to criminally investigate or prosecute any alcohol or drug abuse patient.[facility] CenterIn the event this information is protected by the Federal Confidentiality of Alcohol and Drug Abuse Patient Records regulations: The Federal rules restrict any use of the information to criminally investigate or prosecute any alcohol or drug abuse patient.[facility] CenterIn the event this information is protected by the Federal Confidentiality of Alcohol and Drug Abuse Patient Records regulations: The Federal rules restrict any use of the information to criminally investigate or prosecute any alcohol or drug abuse patient.[facility] CenterIn the event this information is protected by the Federal Confidentiality of Alcohol and Drug Abuse Patient Records regulations: The Federal rules restrict any use of the information to criminally investigate or prosecute any alcohol or drug abuse patient.[facility] CenterIn the event this information is protected by the Federal Confidentiality of Alcohol and Drug Abuse Patient Records regulations: The Federal rules restrict any use of the information to criminally investigate or prosecute any alcohol or drug abuse patient.[facility] CenterIn the event this information is protected by the Federal Confidentiality of Alcohol and Drug Abuse Patient Records regulations: The Federal rules restrict any use of the information to criminally investigate or prosecute any alcohol or drug abuse patient.[facility] CenterIn the event this information is protected by the Federal Confidentiality of Alcohol and Drug Abuse Patient Records regulations: The Federal rules restrict any use of the information to criminally investigate or prosecute any alcohol or drug abuse patient.[facility] CenterIn the event this information is protected by the Federal Confidentiality of Alcohol and Drug Abuse Patient Records regulations: The Federal rules restrict any use of the information to criminally investigate or prosecute any alcohol or drug abuse patient.[facility] CenterIn the event this information is protected by the Federal Confidentiality of Alcohol and Drug Abuse Patient Records regulations: The Federal rules restrict any use of the information to criminally investigate or prosecute any alcohol or drug abuse patient.[facility] CenterIn the event this information is protected by the Federal Confidentiality of Alcohol and Drug Abuse Patient Records regulations: The Federal rules restrict any use of the information to criminally investigate or prosecute any alcohol or drug abuse patient.[facility] CenterIn the event this information is protected by the Federal Confidentiality of Alcohol and Drug Abuse Patient Records regulations: The Federal rules restrict any use of the information to criminally investigate or prosecute any alcohol or drug abuse patient.[facility] CenterIn the event this information is protected by the Federal Confidentiality of Alcohol and Drug Abuse Patient Records regulations: The Federal rules restrict any use of the information to criminally investigate or prosecute any alcohol or drug abuse patient.[facility] CenterIn the event this information is protected by the Federal Confidentiality of Alcohol and Drug Abuse Patient Records regulations: The Federal rules restrict any use of the information to criminally investigate or prosecute any alcohol or drug abuse patient.[facility] CenterIn the event this information is protected by the Federal Confidentiality of Alcohol and Drug Abuse Patient Records regulations: The Federal rules restrict any use of the information to criminally investigate or prosecute any alcohol or drug abuse patient.[facility] CenterIn the event this information is protected by the Federal Confidentiality of Alcohol and Drug Abuse Patient Records regulations: The Federal rules restrict any use of the information to criminally investigate or prosecute any alcohol or drug abuse patient.[facility] CenterIn the event this information is protected by the Federal Confidentiality of Alcohol and Drug Abuse Patient Records regulations: The Federal rules restrict any use of the information to criminally investigate or prosecute any alcohol or drug abuse patient.[facility] CenterIn the event this information is protected by the Federal Confidentiality of Alcohol and Drug Abuse Patient Records regulations: The Federal rules restrict any use of the information to criminally investigate or prosecute any alcohol or drug abuse patient.[facility] CenterIn the event this information is protected by the Federal Confidentiality of Alcohol and Drug Abuse Patient Records regulations: The Federal rules restrict any use of the information to criminally investigate or prosecute any alcohol or drug abuse patient.[facility] CenterIn the event this information is protected by the Federal Confidentiality of Alcohol and Drug Abuse Patient Records regulations: The Federal rules restrict any use of the information to criminally investigate or prosecute any alcohol or drug abuse patient.[facility] CenterIn the event this information is protected by the Federal Confidentiality of Alcohol and Drug Abuse Patient Records regulations: The Federal rules restrict any use of the information to criminally investigate or prosecute any alcohol or drug abuse patient.[facility] CenterIn the event this information is protected by the Federal Confidentiality of Alcohol and Drug Abuse Patient Records regulations: The Federal rules restrict any use of the information to criminally investigate or prosecute any alcohol or drug abuse patient.[facility] CenterIn the event this information is protected by the Federal Confidentiality of Alcohol and Drug Abuse Patient Records regulations: The Federal rules restrict any use of the information to criminally investigate or prosecute any alcohol or drug abuse patient.[facility] CenterIn the event this information is protected by the Federal Confidentiality of Alcohol and Drug Abuse Patient Records regulations: The Federal rules restrict any use of the information to criminally investigate or prosecute any alcohol or drug abuse patient.[facility] CenterIn the event this information is protected by the Federal Confidentiality of Alcohol and Drug Abuse Patient Records regulations: The Federal rules restrict any use of the information to criminally investigate or prosecute any alcohol or drug abuse patient.[facility] CenterIn the event this information is protected by the Federal Confidentiality of Alcohol and Drug Abuse Patient Records regulations: The Federal rules restrict any use of the information to criminally investigate or prosecute any alcohol or drug abuse patient.[facility] CenterIn the event this information is protected by the Federal Confidentiality of Alcohol and Drug Abuse Patient Records regulations: The Federal rules restrict any use of the information to criminally investigate or prosecute any alcohol or drug abuse patient.[facility] CenterIn the event this information is protected by the Federal Confidentiality of Alcohol and Drug Abuse Patient Records regulations: The Federal rules restrict any use of the information to criminally investigate or prosecute any alcohol or drug abuse patient.[facility] CenterIn the event this information is protected by the Federal Confidentiality of Alcohol and Drug Abuse Patient Records regulations: The Federal rules restrict any use of the information to criminally investigate or prosecute any alcohol or drug abuse patient.[facility] CenterIn the event this information is protected by the Federal Confidentiality of Alcohol and Drug Abuse Patient Records regulations: The Federal rules restrict any use of the information to criminally investigate or prosecute any alcohol or drug abuse patient.[facility] CenterIn the event this information is protected by the Federal Confidentiality of Alcohol and Drug Abuse Patient Records regulations: The Federal rules restrict any use of the information to criminally investigate or prosecute any alcohol or drug abuse patient.[facility] CenterIn the event this information is protected by the Federal Confidentiality of Alcohol and Drug Abuse Patient Records regulations: The Federal rules restrict any use of the information to criminally investigate or prosecute any alcohol or drug abuse patient.[facility] CenterIn the event this information is protected by the Federal Confidentiality of Alcohol and Drug Abuse Patient Records regulations: The Federal rules restrict any use of the information to criminally investigate or prosecute any alcohol or drug abuse patient.[facility] CenterIn the event this information is protected by the Federal Confidentiality of Alcohol and Drug Abuse Patient Records regulations: The Federal rules restrict any use of the information to criminally investigate or prosecute any alcohol or drug abuse patient.[facility] CenterIn the event this information is protected by the Federal Confidentiality of Alcohol and Drug Abuse Patient Records regulations: The Federal rules restrict any use of the information to criminally investigate or prosecute any alcohol or drug abuse patient.[facility] Reason for Visit (unrecogniz ed section and content) Reason Comments Pre-Op Exam Intraocular lens Cas culations Reason Comments Severe Cataract eval Reason Comments Request Outside Medical Records Reason Comments Patient Question Reason Comments Consult Reason Comments Schedule Surgery Courtesy call Reason Comments Concessions Manager - Other Reason Comments Concessions Manager - Other Reason Comments Appointment Cardiology schedulin g to discuss TAVR TAVR Reason Comments Post-op (Ophthalmology) Left Eye Reason Comments Appointment Reason Comments Appointment [employer] appt 04/28/2024 Specialty Diagnoses / Procedures Referred By Yessy t Referred To Contact Cardiology Diagnoses Aortic valve stenosis, etiology of cardiac valve disease unspecified Procedures CONSULT TO CARDIOLOGY OFFICE/OUTPATIENT [facility] 60 MINUTES Berta Rich PA-C [id number] [facility] [address] [place] [address] Referral ID Status Reason Start Date Expiration Date V isits Requested Visits Authorized [id number] Closed PCP Requested Referral 04/23/2024 04/16/2025 1 1 Reason Comments Pseudophakia Follow Up Reason Comments TAVR referral Reason Comments New Patient Reason Comments Radiology CT Specialty Diagnoses / Procedures Referred By Kaileyac t Referred To Contact CT IMAGING Diagnoses Severe aortic stenosis by prior echocardiogram Encounter for preprocedural cardiovascular examination Aortic valve disorder Procedures CTA CHEST/ABD/PEL (GATED) W IVCON CT ANGIOGRAPHY CHEST W/CONTRAST/NONCONTRAST CT ANGIO ABD&PLVIS CNTRST MTRL W/WO CNTRST Kacy Charles, CATEGORY MANAGER.NAPPER GRINDER [id number] Imaging [id number] Referral ID Status Reason Start Date Expiration Date V isits Requested Visits Authorized [id number] Closed Auto-Generate d Referral 08/12/2024 10/11/2024 1 1 Reason Comments Patient Education Reason Comments Spirometry Specialty Diagnoses / Procedures Referred By Contac t Referred To [facility] Diagnoses Severe aortic stenosis by prior echocardiogram Encounter for preprocedural cardiovascular examination Aortic valve disorder Procedures SPIROMETRY BASELINE ONLY SPMTRY W/VC EXPIRATORY PEDRO W/WO MXML VOL VNTJ Held, Kacy Bañuelos APRN.[facility] [address] [place] [address] [address] Referral ID Status Reason Start Date Expiration Date V isits Requested Visits Authorized [id number] Closed Auto-Generate d Referral 06/09/2024 07/09/2025 1 1 Specialty Diagnoses / Procedures Referred By Contac t Referred To Contact [facility] Diagnoses Severe aortic stenosis by prior echocardiogram Encounter for preprocedural cardiovascular examination Aortic valve disorder Procedures LUNG DIFFUSION CAPACITY (DLCO) DIFFUSING CAPACITY Kacy Jimenez APRN.[facility] [address] [place] [address] [place] [address] Referral ID Status Reason Start Date Expiration Date V isits Requested Visits Authorized [id number] Closed Auto-Generate d Referral 06/09/2024 07/09/2025 1 1 Reason Comments Radiology [place] Specialty Diagnoses / Procedures Referred By Contac t Referred To Contact [facility] Diagnoses Severe aortic stenosis by prior echocardiogram Encounter for preprocedural cardiovascular examination Aortic valve disorder Procedures NM SPECT/CT CARDIAC AMYLOID RP LOCLZJ HENRY SPECT W/CT 1 AREA 1 DAY IMAGING Tony, Kacy Bañuelos APRN.[facility] [address] [place] [address] Molecular & Functional Imaging [address] [place] [address] Referral ID Status Reason Start Date Expiration Date V isits Requested Visits Authorized [id number] Closed Auto-Generate d Referral 06/09/2024 07/09/2025 1 1 Reason Comments TAVR team meeting Reason Comments Dental form Reason Comments TAVR Schedule Reason Comments Radio Main J1 Reason Comments Hospital F/U S/p tavr Reason Comments Hospital F/U Reason Comments notes and reports Reason Comments Hospital F/U Specialty Diagnoses / Procedures Referred By Contac t Referred To Contact CT IMAGING Diagnoses Mixed hyperlipidemia Essential (primary) hypertension 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 aortic valve 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) Severe aortic stenosis Procedures CT CARDIAC W IVCON CT HEART CONTRAST EVAL CARDIAC STRUCTURE&[place] [address] [place] [address] Phone: tel: [place] [address] Referral ID Status Reason Start Date Expiration Date V isits Requested Visits Authorized [id number] Closed Auto-Generate d Referral 01/06/2025 03/07/2025 1 1 Reason Comments Insurance Authorization Reason Onset Date Comments Refill Request 03/26/2025 FOR RECORDS PERTAINING TO PATIENTS WHO ARE OR HAVE BEEN ENROLLED IN A CHEMICAL DEPENDENCY/SUBSTANCEABUSE PROGRAM, SOME INFORMATION MAY BE OMITTED. This clinical summary was aggregated from multiple sources. Caution should be exercised in using it in the provision of clinical care. This summary normalizes information from multiple sources, and as a consequence, information in this document may materially change the coding, format and clinical context of patient data. In addition, data may be omitted in some cases. CLINICAL DECISIONS SHOULD BE BASED ON THE PRIMARY CLINICAL RECORDS. [facility]. provides no warranty or guarantee of the accuracy or completeness of information in this document.
[2025-06-17 08:31] LABS: Hematocrit 34.6 % (37-47); Hemoglobin 11.3 g/dL (12.0-15.0); Immature Granulocytes Count 0.020 X10^3/uL (0.0-0.0); Mean Corp Hgb Conc 32.7 g/dL (32-36); Mean Corpuscular Volume 94.3 fL (81-99); Mean Platelet Vol. 10.4 fl (6.2-12.0); NRBC Flagged by Analyzer 0 % (0-5); Platelet Count 177 K/mm3 (150-450); RBC Distribution Width CV 14.1 % (11.6-14.6); RBC Distribution Width SD 49.1 fl (35.1-43.9); Red Blood Count 3.67 M/mm3 (4.2-5.4); White Blood Count 6.1 K/mm3 (4.4-11.0)
[2025-06-17 08:46] LABS: Anion Gap 11 (5-15); BUN 14 mg/dL (4-19); BUN/Creat Ratio 21.7 RATIO (10-20); Calcium,Total 9.3 mg/dL (7.6-11.0); Carbon Dioxide 24.6 mmol/L (21.0-32.0); Chloride 102 mmol/L (98-108); Glucose 100 mg/dL (70-99); Potassium 3.4 mmol/L (3.3-5.1)
== END ==
LOC: OLS.WHLTCC 05:00
PROVIDERS: PCP Family Medicine Geriatric Medicine; Visit Provider Internal Medicine
DX: D64.9 Anemia, unspecified (principal); I25.10 Atherosclerotic heart disease of native coronary artery without angina pectoris
CPT/HCPCS: 36415; 80048; 85025

== ENCOUNTER → 2025-06-24 05:00 | Outpatient (REF) | payer MEDICARE, SELFPAY ==
[2025-04-07 07:10] VITALS: BMI 28.1
[2025-06-24 09:15] LABS: Hematocrit 32.9 % (37-47); Hemoglobin 10.9 g/dL (12.0-15.0); Immature Granulocytes Count 0.020 X10^3/uL (0.0-0.0); Mean Corp Hgb Conc 33.1 g/dL (32-36); Mean Corpuscular Volume 92.9 fL (81-99); Mean Platelet Vol. 10.0 fl (6.2-12.0); NRBC Flagged by Analyzer 0 % (0-5); Platelet Count 158 K/mm3 (150-450); RBC Distribution Width CV 14.1 % (11.6-14.6); RBC Distribution Width SD 47.9 fl (35.1-43.9); Red Blood Count 3.54 M/mm3 (4.2-5.4); White Blood Count 6.6 K/mm3 (4.4-11.0)
[2025-06-24 09:28] LABS: Anion Gap 8 (5-15); BUN 19 mg/dL (4-19); BUN/Creat Ratio 30.2 RATIO (10-20); Calcium,Total 9.1 mg/dL (7.6-11.0); Carbon Dioxide 26.9 mmol/L (21.0-32.0); Chloride 102 mmol/L (98-108); Glucose 97 mg/dL (70-99); Potassium 3.9 mmol/L (3.3-5.1)
== END ==
LOC: OLS.WHLTCC 05:00
PROVIDERS: PCP Family Medicine Geriatric Medicine; Visit Provider Internal Medicine
DX: I25.10 Atherosclerotic heart disease of native coronary artery without angina pectoris (principal); S72.402D Unspecified fracture of lower end of left femur, subsequent encounter for closed fracture with routine healing; M62.81 Muscle weakness (generalized); D64.9 Anemia, unspecified
CPT/HCPCS: 36415; 80048; 85025

== ENCOUNTER → 2025-07-01 05:00 | Outpatient (REF) | payer MEDICARE, SELFPAY ==
[2025-04-07 07:10] VITALS: BMI 28.1
--- OUTSIDE RECORDS SUMMARY | 2025-07-01 04:00 | XMS RPT_ITS | CCD ---
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 Name Role Phone UMM, SERGIO E Unavailable Unavailable UMM, SERGIO E Unavailable Unavailable UMM, SERGIO E Unavailable Unavailable UMM, SERGIO E Unavailable Unavailable UMM, SERGIO Unavailable Unavailable UMM, SERGIO Unavailable Unavailable [place], Fritz Unavailable Unavailable UMM, SERGIO Unavailable Unavailable UMM, SERGIO Unavailable Unavailable [place], Fritz Unavailable Unavailable Sidney, Fritz Unavailable Unavailable UMM, SERGIO Unavailable Unavailable UMM, SERGIO Unavailable Unavailable FLAQUITO, EH-CHI Unavailable Unavailable UMM, SERGIO Unavailable Unavailable UMM, SERGIO Unavailable Unavailable FLAQUITO, EH-CHI Unavailable Unavailable UMM, SERGIO Unavailable Unavailable UMM, SERGIO Unavailable Unavailable Dr. Eh Huddleston Chi Primary Care Provider 1([facility])[phone] Dr. Eh Huddleston Chi Referring Provider 1([facility])[phone] Abraham Sheppard Attending Provider 1([facility]) [phone] Dr. Eh Huddleston Chi Primary Care Provider 1([facility])[phone] Abraham Sheppard Attending Provider 1([facility])[phone] Dr. Eh Huddleston Chi Primary Care Provider 1([facility])[phone] Dr. Eh Huddleston Chi Referring Provider 1([facility])[phone] Sole DOW, VICTOR M Cunningham Attending Provider Dr. Richy Coronado Attending Provider 1([facility])-[phone] Richy Coronado Referring Provider 1([facility])-[phone] FlaquitoEh dallas Chi Primary Care Provider 1([facility])[phone] Unavailable Primary Care Provider Unavailabl e Flaquito Eh Chi Primary Care Provider 1([facility])[phone] Flaquito, Eh Chi Primary Care Provider 1([facility])[phone] Dr. Eh Huddleston MD, Chi Primary Care Provider [phone] Flaquito RICKS, Dr. Eh Mckeon Attending Provider ODILON WELLS Attending Provider ODILON WELLS Referring Provider JAMES LINDO Referring Unavailable GENOVEVA ARTEAGA Attending Unavailable FLAQUITO, EH CHI Primary Care Unavailable HELDKACY Referring Unavailable FLAQUITO, EH CHI Primary Care Unavailable ODILON WELLS Referring Unavailable FLAQUITO, EH CHI Primary Care Unavailable ODILON WELLS Referring Unavailable FLAQUITO, EH CHI Primary Care Unavailable FLAQUITO, EH CHI Primary Care Unavailable ODILON WELLS Attending Unavailable FLAQUITO, EH CHI Primary Care Unavailable LUBA LLANES Referring Unavailable FLAQUITO, EH CHI Primary Care Unavailable LUBA LLANES Referring Unavailable FLAQUITO, EH CHI Primary Care Unavailable SHRADDHA, LUBA Referring Unavailable ODILON WELLS Attending Unavailable ODILON WELLS Admitting Unavailable KACY JIMENEZ Referring Unavailable FLAQUITO, EH CHI Primary Care Unavailable ODILON WELLS Attending Unavailable WALI TRIANA Attending Unavailable JAMES LINDO Referring Unavailable ODILON WELLS Referring Unavailable FLAQUITO, EH CHI Primary Care Unavailable ODILON WELLS Referring Unavailable FLAQUITO, EH CHI Primary Care Unavailable RADZIMAGDALENASKI, DENG Referring Unavailable FLAQUITO, EH CHI Primary Care Unavailable RADZILOWSKI, DENG Referring Unavailable FLAQUITO, EH CHI Primary Care Unavailable RADZILOWSKI, DENG Referring Unavailable FLAQUITO, EH CHI Primary Care Unavailable RADZILOWSKI, DENG Referring Unavailable RADREINALDOSKIDENG Attending Unavailable FLAQUITO, EH CHI Primary Care [...] Unavailable FLAQUITO, EH CHI Primary Care Unavailable ANAHY LLANESRINA Referring Unavailable RUSSELL, ODILON Referring Unavailable FLAQUITO, EH CHI Primary Care Unavailable FLAQUITO, EH CHI Primary Care Unavailable SHRADDHA, LUBA Referring Unavailable RAMJAMES MURDOCK Referring Unavailable FLAQUITO, EH CHI Primary Care [...] Provider Thomas BREWER, Dr. Georges Emergency Provider Stephenie BREWER, Dr. Benjamin Admit Provider Stephenie BREWER, Dr. Benjamin Attending Provider Stephenie BREWER, Dr. Benjamin Other Provider Mathieu RICKS, Dr. Bryant Attending Provider Miki BREWER, Dr. Trevizo Other Provider [phone] Yan RICKS, Nathan Other Provider Unavailable Nikolay RICKS, Dr. Nunes Other Provider Georgina Sosa MD Other Provider Unavailable Dr. Sondra Lira DO Other Provider Hans RICKS, Dr. Stevenson Other Provider [phone] Fredy RICKS, Dr. Ellsworth Other Provider Dr. Deann Santana MD Other Provider Dr. Piero Richard MD Other Provider Andrade RICKS, Dr. Allen Other Provider Jad RICKS, Dr. Funez Other Provider Cristiano RICKS, Melissa Other Provider Araceli RICKS, Dr. Ly Other Provider Chris RICKS, Dr. Garza Other Provider Whitley RICKS, Dr. Ko Other Provider Aj RICKS, Dr. Maria Guadalupe Bundy Other Provider Francis RICKS, Dr. Sheth Other Provider Nicola RICKS, Dr. Gresham Other Provider Angelina RICKS, Dr. Farr Other Provider [phone] Flako RICKS, Dr. Guerrero Other Provider Unavailable Vivi RICKS, Yousevioleta Other Provider Unavailable Dr. Sourav Casiano DO Attending Provider Vincent RICKS, Dr. Molina Attending Provider Mathieu RICKS, Dr. Bryant Other Provider Flaquito RICKS, Dr. Eh Mckeon Primary Care Provider ODILON WELLS Attending Provider ODILON WELLS Referring Provider Santa RICKS, Dr. Stacy Attending Provider Karen RICKS, Dr. Fernandez Referring Provider Flaquito RICKS, Dr. Eh Mckeon Admit Provider Hattie RICKS, Dr. Zepeda Other Provider Chidi RICKS, Dr. Stallworth Attending Provider Flaquito RICKS, Dr. Eh Mckeon Other Provider Hattie RICKS, Dr. Zepeda Attending Provider Hattie RICKS, Dr. Zepeda Other Provider [phone] Hattie RICKS, Dr. Zepeda Attending Provider Kev RICKS, Dr. Celis Attending Provider Unavail able Flaquito RICKS, Dr. Eh Mckeon Primary Care Provider ODILON WELLS Attending Provider [phone] ODILON WELLS Referring Provider Flaquito RICKS, Dr. Eh Mckeon Attending Provider Flaquito RICKS, Dr. Eh Mckeon Referring Provider Thomas BREWER, Dr. Georges Emergency Provider Stephenie BREWER, Dr. Benjamin Admit Provider Stephenie BREWER, Dr. Benjamin Other Provider Mathieu RICKS, Dr. Bryant Attending Provider Miki BREWER, Dr. Trevizo Other Provider [phone] Nathan Heredia MD Other Provider Unavailable Nikolay RICKS, Dr. Nunes Other Provider Georgina Sosa MD Other Provider Unavailable Dr. Sondra Lira DO Other Provider Hans RICKS, Dr. Stevenson Other Provider [phone] Fredy RICKS, Dr. Ellsworth Other Provider Max RICKS, Dr. Zacarias Other Provider Jose Manuel RICKS, Dr. Harry Other Provider Andrade RICKS, Dr. Allen Other Provider Jad RICKS, Dr. Funez Other Provider Melissa Quinonez MD Other Provider Araceli RICKS, Dr. Ly Other Provider Chris RICKS, Dr. Garza Other Provider Whitley RICKS, Dr. Ko Other Provider Aj RICKS, Dr. Maria Guadalupe Bundy Other Provider Francis RICKS, Dr. Sheth Other Provider Nicola RICKS, Dr. Gresham Other Provider Angelina RICKS, Dr. Farr Other Provider Flako RICKS, Dr. Guerrero Other Provider Unavailable Vivi RICKS, Benjamín Other Provider Unavailable Stephenie BREWER, Dr. Benjamin Attending Provider Santa RICKS, Dr. Stacy Attending Provider Karen RICKS, Dr. Fernandez Referring Provider Vincent RICKS, Dr. Molina Attending Provider Mathieu RICKS, Dr. Bryant Other Provider [phone] Flaquito RICKS, Dr. Eh Mckeon Admit Provider Hattie RICKS, Dr. Zepeda Other Provider Chidi RICKS, Dr. Stallworth Attending Provider Flaquito RICKS, Dr. Eh Mckeon Other Provider Hattie RICKS, Dr. Zepeda Attending Provider Kev RICKS, Dr. Celis Attending Provider Unavail able Jovany RICKS, Nereyda Attending Provider Unavaila [facility] Maricarmen Ball Attending Provider Azul Pratt Attending Unavailable Jim Jones Referring Unavailable Flaquito, Eh Chi Primary Care Unavailable Basim Murillo Attending Unavailable Flaquito, Eh Chi Referring Unavailable Flaquito, Eh Chi Primary Care Unavailable Tracy Kaur Attending Unavailable Flaquito, Eh Chi Primary Care Unavailable Katelyn Kuhn Attending Unavailable Flaquito, Eh Chi Consulting Unavailable Flaquito, Eh Chi Admitting Unavailable Flaquito, Eh Chi Primary Care Unavailable Santhosh Livingston Consulting Unavailable Flaquito, Eh Chi Primary Care Unavailable Sourav Casiano Admitting Unavailable Sourav Casiano Attending Unavailable Sourav Casiano Consulting Unavailable Flaquito, Eh Chi Attending Unavailable Flaquito, Eh Chi Referring Unavailable Flaquito, Eh Chi Primary Care Unavailable Flaquito, Eh Chi Attending Unavailable Flaquito, Eh Chi Primary Care Unavailable Antoine, Danny Referring Unavailable Antoine, Danny Attending Unavailable Flaquito, Eh Chi Primary Care Unavailable Antoine, Danny Referring Unavailable Antoine, Danny Attending Unavailable Flaquito, Eh Chi Primary Care Unavailable Antoine, Danny Referring Unavailable Antoine, Danny Attending Unavailable Flaquito, Eh Chi Primary Care Unavailable Antoine, Danny Referring Unavailable Antoine, Danny Attending Unavailable Flaquito, Eh Chi Primary Care Unavailable Antoine, Danny Referring Unavailable Antoine, Danny Attending Unavailable Flaquito, Eh Chi Primary Care Unavailable Antoine, Danny Referring Unavailable Antoine, Danny Attending Unavailable Flaquito, Eh Chi Primary Care Unavailable Katelyn Kuhn Consulting Unavailable Flaquito, Eh Chi Attending Unavailable Flaquito, Eh Chi Admitting Unavailable Flaquito, Eh Chi Primary Care Unavailable Flaquito, Eh Chi Primary Care Unavailable Sourav Casiano Admitting Unavailable Sourav Casiano Consulting Unavailable [facility], [facility] Attending Unavailable Santhosh Livingston Consulting Unavailable Nathan Heredia Consulting Unavailable Adeli, Amir Consulting Unavailable Hinduja, Georgina Consulting Unavailable Pankaj, Sondra Consulting Unavailable Zha, Elva Consulting Unavailable Fredy, Seng Consulting Unavailable Max, Deann Consulting Unavailable Bittar, Piero Consulting Unavailable Marco Zafar Consulting Unavailable Armin Street Consulting Unavailable Melissa Quinonez Consulting Unavailable Araceli, Malachi Consulting Unavailable Chris, Kayla Consulting Unavailable Ridha, Mohamed Consulting Unavailable Zaghlouleh, Mhd Gregor Consulting UnavailDomenic Saenz Consulting Unavailable Petersen, Rami Consulting Unavailable Angelina, Yordan Consulting Unavailable Flako, Yolanda Consulting Unavailable Hannawi, Yousef Consulting Unavailable Flaquito, Eh Chi Attending Unavailable Flaquito, Eh Chi Referring Unavailable Flaquito, Eh Chi Primary Care Unavailable [facility], [facility] Attending Unavailable John Herediaan Consulting Unavailable Adeli, Amir Consulting Unavailable Hinduja, Georgina Consulting Unavailable Pankaj, Sondra Consulting Unavailable Zha, Elva Consulting Unavailable Fredy, Seng Consulting Unavailable Max, Deann Consulting Unavailable Bittar, Piero Consulting Unavailable Marco Zafar Consulting Unavailable Armin Street Consulting Unavailable Melissa Quinonez Consulting Unavailable Gusjered, Malachi Consulting Unavailable Chrsi, Kayla Consulting Unavailable Ridha, Mohamed Consulting Unavailable Zaghlouleh, Mhd Gregor Consulting UnavailDomenic Saenz Consulting Unavailable Petersen, Rami Consulting Unavailable Angelina, Yordan Consulting Unavailable Flako, Yolanda Consulting Unavailable Hannawi, Yousef Consulting Unavailable [facility], Manny Consulting Unavailable Vimal Trimble Attending Unavailable Flaquito, Eh Chi Primary Care Unavailable Antoine, Danny Referring Unavailable Antoine, Danny Attending Unavailable Flaquito, Eh Chi Primary Care Unavailable OlesakinaNereyda Park Attending Unavailabl e Flaquito, Eh Chi Primary Care Unavailable FrandysakinaNereyda Park Attending Unavailabl e Flaquito, Eh Chi Primary Care Unavailable Oleghe Nereyda SALMERON Attending Unavailabl e Flaquito, Eh Chi Primary Care Unavailable Vimal Trimble Attending Unavailable Flaquito, Eh Chi Primary Care Unavailable Flaquito, Eh Chi Referring Unavailable Flaquito, Eh Chi Primary Care Unavailable Maricarmen Warner Attending Unavailable Medications Current Medications Medication Drug Class(es) Dates Sig (Normalized) Sig (Original) acetaminophen 500 mg oral tablet (8 sources) Start: 05-14-2025 End: 06-04-2025 Start: 05-14-2025 End: 06-04-2025 take 1 g [...] 03/04/2025 Active apixaban 5 mg oral tablet (13 sources) Factor Xa Inhibitor Start: 03-02-2025 End: 06-24-2025 ascorbic acid 500 mg oral tablet (3 sources) Vitamin C Start: 06-04-2025 Start: 06-04-2025 Ascorbic Acid (Vitamin C) 500 mg Tablet Active 500 mg PO 1000 0 0 June 04, 2025 12:00am atorvastatin 40 mg oral tabl et (20 sources) HMG-CoA Reductase Inhibitor Start: 05-14-2025 Start: 11-28-2017 End: 05-07-2025 Comment on above: Take 1 tablet by debra once daily. brimonidine tartrate 2 mg/ml ophthalmic solution (20 sources) alpha-Adrenergic Agonist Start: 11-25-2017 End: 10-29-2024 Comment on above: Use 2 Drops in both eyes twice daily. clopidogrel 75 mg oral table t (20 sources) P2Y12 Platelet Inhibitor Start: 11-01-2024 End: 05-31-2025 Start: 11-28-2017 End: 04-06-2024 Comment on above: Take 1 tablet by debra th once daily. docusate sodium 50 mg / sennosides, chcf 8.6 mg oral tablet (8 sources) Start: 05-14-2025 End: 06-04-2025 Start: 05-14-2025 End: 06-04-2025 Sennosides-Docusate Sodium ( Stimulant Laxative Plus) 8.6-50 mg Tablet Active 1 {tbl} PO TWICE A DAY 0 0 June 04, 2025 12:00am dorzolamide 20 mg/ml / timol ol 5 mg/ml ophthalmic solution (16 sources) Carbonic Anhydrase Inhibitor, beta-Adrenergic Madhu Start: 11-25-2017 Start: 11-25-2017 take 10 mL into the eye(s) twice daily Dorzolamide-Timolol 10 ML drops Active 1 NMA EACH [...] solution (20 sources) Prostaglandin Analog Start: 12-17-2019 Start: 11-25-2017 End: 12-04-2017 Start: 11-25-2017 End: 10-29-2024 take 1 drop(s) into the eye(s) once daily at bedtime latanoprost (XALATAN) 0.005 % ophthalmic solution Use 1 Drop in the left eye daily at bedtime. 10/29/2024 Active Comment on above: Use 1 Drop in both e yes daily at bedtime. losartan potassium 25 mg oral tablet (5 sources) Angiotensin 2 Receptor Madhu Start: 05-14-2025 Menthol / Zinc Oxide (2 sources) Start: 06-04-2025 Menthol-Zinc Oxide (Calmoseptine) 0.44-20.6 % Ointment Active 1 NMA TOPICAL TWICE A DAY 0 0 June 04, 2025 12:00am Please contact the information source for Protocol details. pantoprazole 40 mg delayed release oral tablet (5 sources) Proton Pump Inhibitor Start: 05-14-2025 phenylephrine hydrochloride 25 mg/ml ophthalmic solution (3 sources) alpha-1 Adrenergic Agonist Start: 05-26-2024 End: 05-27-2024 PHENYLephrine 2.5 % 1 Drop (AK-DILATE, AMBER-SYNEPHRINE) Start: 01-16-2024 End: 01-17-2024 PHENYLephrine 2.5 % 1 Drop ( AK-DILATE, AMBER-SYNEPHRINE) polysaccharide iron complex 150 mg oral capsule (3 sources) Start: 06-04-2025 prednisoLONE acetate 10 mg/ml ophthalmic suspension (9 [...] Active tamsulosin hydrochloride 0.4 mg oral capsule (3 sources) alpha-Adrenergic Madhu Start: 06-04-2025 rcmaqmw-eqjhdtinn-ta rzolam,PF (TJX-SFKU-OVF) 0.5-0.15-2 % ophthalmic solution (20 sources) Start: 10-29-2024 take 1 drop(s) into the eye(s) twice daily timolol-brimonidi- dorzolam,PF (YMS-KSRG-AOF) 0.5-0.15-2 % ophthalmic solution Use 1 Drop in the left eye two times a day. 10/29/2024 Suspended Start: 10-29-2024 take 1 drop(s) into the eye(s) twice daily xqabtxh-hnqafycde-nzdeznsj,PF (LEIGHTON-BRIM- HELDER) 0.5-0.15-2 % ophthalmic solution Use 1 Drop in the left eye two times a day. 10/29/2024 Active Start: 10-29-2024 End: 10-29-2024 take 1 drop(s) into the eye(s) once daily at bedtime kaewceh-ugshsxpdp-rqdizbal,PF (LEIGHTON-BRIM- HELDER) 0.5-0.15-2 % ophthalmic solution Use 1 Drop in the left eye daily at bedtime. 10/29/2024 10/29/2024 Discontinued (Adjust Sig - Block E-Cancel) tropicamide 10 mg/ml ophthalmic solution (3 sources) Anticholinergic Start: 05-26-2024 End: 05-27-2024 tropicamide 1 % 1 Drop (MYDRIACYL) Start: 01-16-2024 End: 01-17-2024 tropicamide 1 % 1 Drop (MYDR IACYL) vancomycin 25 mg/ml oral phillip ution (3 sources) Glycopeptide Antibacterial Start: 06-04-2025 (1 source) Start: 06-04-2025 Completed/Discontinued Medications Medication Drug Class(es) Dates Sig (Normalized) Sig (Original) aspirin 81 mg delayed release oral tablet (20 sources) Platelet Aggregation Inhibitor, Nonsteroidal Anti-inflammatory Drug Start: 11-28-2017 End: 05-07-2025 Comment on above: Take 81 mg by mouth once daily. benoxinate hydrochloride 4 mg/ml / fluorescein sodium 3 mg/ml ophthalmic solution (2 sources) Diagnostic Dye Start: 01-16-2024 End: 01-17-2024 fluorescein-benoxi mira 0.3-0.4 % 1 Drop (FLURESS) carvedilol 12.5 mg oral tablet (20 sources) alpha-Adrenergic Madhu, beta-Adrenergic Madhu Start: 11-28-2017 End: 11-03-2024 Comment on above: Take 1 tablet by debra th twice daily with meals. cefdinir 300 mg oral capsule (16 sources) Cephalosporin Antibacterial Start: 11-28-2017 End: 12-04-2017 DORZOLAMIDE HCL/TIMOLOL MALEAT (DORZOLAMIDE-TIMOLO L OPHTHALMIC) (20 [...] guaiFENesin 1200 mg extended release oral tablet (16 sources) Start: 11-28-19 End: 12-04-19 metFORMIN hydrochloride 500 mg oral tablet (16 sources) Biguanide Start: 11-28-19 End: 12-04-19 18 moxifloxacin 5 mg/ml ophthalmic solution (20 sources) Quinolone Antimicrobial Start: 04-20-20 End: 10-29-19 take 1 drop(s) into the eye(s) four [...] Active oxyCODONE hydrochloride 5 mg oral tablet (9 sources) Opioid Agonist Start: 05-14-2025 End: 06-04-2025 proparacaine hydrochloride 5 mg/ml ophthalmic solution (2 sources) Local Anesthetic Start: 01-16-2024 End: 01-17-2024 proparacaine 0.5 % 1 Drop (ALCAINE) temazepam 30 mg oral capsule (20 sources) Benzodiazepine Start: 05-07-2025 End: 06-15-2025 Start: 11-25-2017 End: 03-16-2024 Comment on above: Take 30 mg by mouth at bedtime as needed. 12 hr timolol 5 mg/ml ophthalmic solution (3 sources) beta-Adrenergic Madhu End: 04-06-20 take 1 drop(s) into the eye(s) twice daily timolol hemihydrate (BETIMOL) 0.5 % ophthalmic solution Use 1 Drop in both eyes twice daily. 0 04/06/2024 Discontinued Comment on above: Use 1 Drop in both e yes twice daily. traZODone hydrochloride 100 mg oral tablet (3 sources) Serotonin Reuptake Inhibitor Start: 08-12-20 15 End: 04-06-20 take 1 tablet by mouth once daily at bedtime traZODone (DESYREL) 100 mg tablet Indications: Primary insomnia Take 1 tablet by mouth daily at bedtime. 30 tablet 1 08/12/2015 04/06/2024 Discontinued Comment on above: Take 1 tablet by debra th daily at bedtime. valsartan 160 mg oral tablet (20 sources) Angiotensin 2 Receptor Madhu Start: 05-07-20 End: 05-14-20 Start: 04-20-2024 take 0.5 tablet by m outh once daily valsartan (DIOVAN) 160 mg tablet Take 0.5 tablets by mouth once daily. 04/20/2024 Active Start: 03-16-2024 End: 05-07-2025 Start: 05-23-2021 End: 03-16-2024 Start: 11-28-2017 End: 02-20-2021 Start: 11-28-2017 End: 03-16-2024 take 1 tablet by mouth once daily Valsartan 160 mg tablet Discontinued 160 mg PO DAILY 90 4 August 21, 2023 4:59pm March 16, 2024 2:28pm Comment on above: Take 1 tablet by debra th once daily. Problems Active Problems Problem Classification Problem Date Documented Da te Episodic/Chronic Acute cerebrovascular disease (9 sources) Cerebrovascular accident; Translations: [Cerebral infarction, unspecified] Onset: 06-24-2025 05-14-2025 Chronic Acute cerebrovascular disease (6 sources) [...] disease (20 sources) Atherosclerotic heart disease of nikolai coronary artery without angina pectoris; 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] Onset: 12-30-2017 Chronic Comment on above: Moderate 3 vessel di sease: LAD: significant mid vessel disease with multiple moderate stenosis thruout mid and mid-distal LAD; LCX: moderate diffuse disease; RCA:moderate diffuse disease 12/27/17 Diabetes mellitus without complication (16 sources) Prediabetes; Translations: [Prediabetes] 11-28-2017 Episodic Disorders of lipid metabolism (20 sources) Pure hypercholesterolemia; Translations: [Pure hypercholesterolemia, unspecified] Onset: 02-26-2019 Chronic E Codes: Fall (16 sources) Fall; Translations: [Unspecified fall, initial encounter] 06-05-2022 Episodic Essential hypertension (20 sources) Essential (primary) hypertension; Translations: [Essential hypertension] Onset: 09-09-2017 Chronic Fracture of lower limb (18 sources) Fracture of distal end of femur; Translations: [Unspecified fracture of lower end of unspecified femur, initial encounter for closed fracture] Onset: 05-27-2025 05-07-2025 Episodic Genitourinary symptoms and ill-defined conditions (7 sources) Retention of urine; Translations: [Retention of urine, unspecified] Onset: 06-24-2025 06-03-2025 Episodic Glaucoma (20 sources) Open-angle glaucoma of left eye; 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, left eye, severe stage] Onset: 04-07-2024 01-16-2024 Chronic Heart valve disorders (20 sources) Aortic stenosis, non-rheumatic ; Translations: [Nonrheumatic aortic (valve) stenosis] Onset: 04-07-2024 Chronic Comment on above: Mild Malaise and fatigue (20 sources) Asthenia; Translations: [Weakness] Onset: 06-24-2025 06-05-2022 Episodic Open wounds of extremities (16 sources) Laceration of lower limb; Translations: [Laceration without foreign body, unspecified lower leg, initial encounter] 06-05-2022 Episodic Open wounds of head; neck; and trunk (16 sources) Laceration of lip ; Translations: [Laceration without foreign body of lip, initial encounter] 06-05-2022 Episodic Other connective tissue disease (1 source) Pain in left lower leg; Translations: [Pain in left lower leg] Onset: 06-09-2025 Episodic Other injuries and conditions due to external causes (16 sources) Closed injury of head; Translations: [Unspecified injury of head, initial encounter] 06-05-2022 Episodic Other injuries and conditions due to external causes (16 sources) Abrasion and/or friction burn of multiple sites; Translations: [Unspecified multiple injuries, initial encounter] 06-05-2022 Episodic Peripheral and visceral atherosclerosis (2 sources) Peripheral vascular disease, unspecified; Translations: [Peripheral vascular disease, unspecified] Onset: 12-23-2024 10-30-2024 Chronic Phlebitis; thrombophlebitis and thromboembolism (10 sources) Acute deep venous thrombosis of calf; Translations: [Acute embolism and thrombosis of right calf muscular vein] Onset: 06-24-2025 03-02-2025 Episodic Residual codes; unclassified (20 sources) Insomnia; Translations: [Insomnia, unspecified] Onset: 04-07-2024 04-07-2024 Episodic Residual codes; unclassified (1 source) Insomnia, unspecified; Translations: [Insomnia, unspecified] Onset: 06-24-2025 Episodic Retinal detachments; defects; vascular occlusion; and retinopathy (1 source) Blind hypertensive eye; 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, right eye] 01-16-2024 Chronic Syncope (16 sources) Near syncope; Translations: [Syncope and collapse] 11-28-2017 Episodic Unclassified (1 source) Unknown / UNK(Unknown) Onset: 12-23-2017 Unclassified (1 source) Acute embolism and thrombosis of right calf muscular vein; Translations: [Acute deep vein thrombosis (DVT) of calf muscle vein of right lower extremity (HCC)] Onset: 03-02-2025 Unclassified (2 sources) Needs f/u for rdz removal, voiding trials Urinary tract infections (7 sources) Urinary tract infectious disease; Translations: [Urinary tract infection, site not specified] Onset: 06-24-2025 06-03-2025 Episodic Past or Other Problems Problem Classification Problem Date Documented Da te Episodic/Chronic Unclassified (7 sources) Severe aortic stenosis 12-23-2024 Results Test Name Value Interpretation Reference Range Facility Gastroenterology Visit Repor ton 06-23-2025 Gastroenterology Visit Report Normal [facility] Basic Metabolic Profile (BMP )on 06-19-2025 BUN Normal 4-19 [facility] Comment on above: Result Comment: Canc elled via OM: Ordered/Entered in error Performed By: #### L 500.2500 ####[facility] [id number] [place], [address] BUN/CRE Normal 10-20 [facility] Comment on above: Result Comment: Canc elled via OM: Ordered/Entered in error Performed By: #### L 500.2500 ####[facility] [address] [place], [address] Calcium Normal 7.6-11.0 [facility] Comment on above: Result Comment: Canc elled via OM: Ordered/Entered in error Performed By: #### L 500.2500 ####[facility] [address] [place], [address] CL Normal 98-108 [facility] Comment on above: Result Comment: Canc elled via OM: Ordered/Entered in error Performed By: #### L 500.2500 ####[facility] [address] [place], [address] CO2 Normal 21.0-32.0 [facility] Comment on above: Result Comment: Canc elled via OM: Ordered/Entered in error Performed By: #### L 500.2500 ####[facility] [address] [place], [address] CREAT,SERUM Normal 0.70-1.20 [facility] Comment on above: Result Comment: Canc elled via OM: Ordered/Entered in error Performed By: #### L 500.2500 ####[facility] [address] [place], [address] eGFR Normal >60 [facility] Comment on above: Result Comment: Canc elled via OM: Ordered/Entered in error Performed By: #### L 500.2500 ####[facility] [address] [place], [address] GAP Normal 5-15 [facility] Comment on above: Result Comment: Canc elled via OM: Ordered/Entered in error Performed By: #### L 500.2500 ####[facility] [address] [place], [address] GLU Normal 70-99 [facility] Comment on above: Result Comment: Canc elled via OM: Ordered/Entered in error Performed By: #### L 500.2500 ####[facility] [address] [place], [address] Potassium Normal 3.3-5.1 [facility] Comment on above: Result Comment: Canc elled via OM: Ordered/Entered in error Performed By: #### L 500.2500 ####[facility] [address] [place], [address] Basic Metabolic Profile (BMP) Normal 133-145 [facility] Comment on above: Result Comment: Canc elled via OM: Ordered/Entered in error Performed By: #### L 500.2500 ####[facility] [address] [place], [address] CBC W/Diff, Automatedon - Absolute Neut Normal 2.0-7.7 [facility] Comment on above: Result Comment: Canc elled via OM: Order cancelled - Patient discharged Performed By: #### L 100.0100 ####[facility] [address] [place], [address] HCT Normal 37-47 [facility] Comment on above: Result Comment: Canc elled via OM: Order cancelled - Patient discharged Performed By: #### L 100.0100 ####[facility] [address] [place], [address] HGB Normal 12.0-15.0 [facility] Comment on above: Result Comment: Canc elled via OM: Order cancelled - Patient discharged Performed By: #### L 100.0100 ####[facility] [address] [place], [address] MCH Normal 27.0-32.0 [facility] Comment on above: Result Comment: Canc elled via OM: Order cancelled - Patient discharged Performed By: #### L 100.0100 ####[facility] [address] [place], [address] MCHC Normal 32-36 [facility] Comment on above: Result Comment: Canc elled via OM: Order cancelled - Patient discharged Performed By: #### L 100.0100 ####[facility] [address] [place], [address] MCV Normal 81-99 [facility] Comment on above: Result Comment: Canc elled via OM: Order cancelled - Patient discharged Performed By: #### L 100.0100 ####[facility] [address] [place], [address] NEUT% Normal 47-70 [facility] Comment on above: Result Comment: Canc elled via OM: Order cancelled - Patient discharged Performed By: #### L 100.0100 ####[facility] [address] [place], [address] PLT Normal 150-450 [facility] Comment on above: Result Comment: Canc elled via OM: Order cancelled - Patient discharged Performed By: #### L 100.0100 ####[facility] [address] [place], [address] RBC Normal 4.2-5.4 [facility] Comment on above: Result Comment: Canc elled via OM: Order cancelled - Patient discharged Performed By: #### L 100.0100 ####[facility] [address] [place], [address] RDW CV Normal 11.6-14.6 [facility] Comment on above: Result Comment: Canc elled via OM: Order cancelled - Patient discharged Performed By: #### L 100.0100 ####[facility] [address] [place], [address] RDW SD Normal 35.1-43.9 [facility] Comment on above: Result Comment: Canc elled via OM: Order cancelled - Patient discharged Performed By: #### L 100.0100 ####[facility] [address] [place], [address] WBC Normal 4.4-11.0 [facility] Comment on above: Result Comment: Canc elled via OM: Order cancelled - Patient discharged Performed By: #### L 100.0100 ####[facility] [address] [place], [address] Absolute lymphocyte countOrd ered By: Nereyda Manzo on 06-17-2025 Lymphocytes Auto (Unsp spec) [#/Vol] 1.03 10*3/uL 0.83-4.51 [facility] Anion gap in Serum or Plasma Ordered By: Nereyda Manzo on 06-17-2025 Anion gap [Moles/Vol] 11 mmol/L 5-15 [facility] Automated lymphocyte count a s percentage of total leukocytesOrdered By: Nereyda Manzo on 06-17-2025 Lymphocytes/100 WBC Auto (Unsp spec) 16.8 % Low 19-41 [facility] BUN/creatinine ratioOrdered By: Nereyda Manzo on 06-17-2025 Urea nitrogen/Creatinine [Mass ratio] 21.7 mg/mg High 10-20 [facility] Basophil percentageOrdered B y: Nereyda Manzo on 06-17-2025 Basophils/100 WBC (Bld) 0.3 % 0-1 [facility] Carbon dioxide, total [Moles /volume] in Central venous bloodOrdered By: Nereyda Manzo on 06-17-2025 CO2 [Moles/Vol] 24.6 mmol/L 21.0-32.0 [facility] Chloride assayOrdered By: Arcelia Manzo on 06-17-2025 Chloride [Moles/Vol] 102 mmol/L 98-108 [facility] Eosinophil percentageOrdered By: Nereyda Manzo on 06-17-2025 Eosinophils/100 WBC (Bld) 4.9 % 0-5 [facility] Erythrocyte distribution wid th ratioOrdered By: Nereyda Manzo on 06-17-2025 Erythrocyte distribution width (RBC) [Ratio] 14.1 % 11.6-14.6 [facility] Erythrocyte distribution wid th standard deviationOrdered By: Nereyda Manzo on 06-17-2025 Erythrocyte distribution width (RBC) [Ratio] 49.1 fl High 35.1-43.9 [facility] Glomerular filtration rate ( GFR) estimation/1.73 sq m using serum, plasma, or whole bOrdered By: Nereyda Manzo on 06-17-2025 GFR/1.73 sq M.predicted among non-blacks MDRD (S/P/Bld) [Vol rate/Area] 85 mL/min/{1.73_m2} >60 [facility] Hematocrit Auto (Bld) [Volum e fraction]Ordered By: Nereyda Manzo on 06-17-2025 Hematocrit (Bld) [Volume fraction] 34.6 % Low 37-47 [facility] Hemoglobin measurementOrdere d By: Nereyda Manzo on 06-17-2025 Hemoglobin (Bld) [Mass/Vol] 11.3 g/dL Low 12.0-15.0 [facility] Immature granulocytes/100 WB C Auto (Bld)Ordered By: Nereyda Manzo on 06-17-2025 Immature granulocytes/100 WBC (Bld) 0.300 % 0.0-0.9 [facility] MCV (mean corpuscular volume ) determinationOrdered By: Nereyda Manzo on 06-17-2025 MCV (RBC) [Entitic vol] 94.3 fL 81-99 [facility] Mean corpuscular hemoglobin (MCH) determinationOrdered By: Nereyda Manzo on 06-17-2025 MCH (RBC) [Entitic mass] 30.8 pg 27.0-32.0 [facility] Monocyte percentageOrdered B y: Nereyda Manzo on 06-17-2025 Monocytes/100 WBC (Bld) 9.5 % 0-10 [facility] Neutrophil percentageOrdered By: Nereyda Manzo on 06-17-2025 Neutrophils/100 WBC (Bld) 68.2 % 47-70 [facility] Platelet countOrdered By: Arcelia tino Frandytamera on 06-17-2025 Platelets (Bld) [#/Vol] 177 10*3/uL 150-450 [facility] Potassium measurement (mass/ volume)Ordered By: Nereyda Wisesakinaazam on 06-17-2025 Potassium (Unsp spec) [Mass/Vol] 3.4 mmol/L 3.3-5.1 [facility] RBC Auto (Bld) [#/Vol]Ordere d By: Nereyda Frandytamera on 06-17-2025 RBC (Bld) [#/Vol] 3.67 10*6/uL Low 4.2-5.4 [facility] Serum creatinine measurement (mass/volume)Ordered By: Arceliatino Wisesakinaazam on 06-17-2025 Creatinine [Mass/Vol] 0.66 mg/dL Low 0.70-1.20 [facility] Serum glucose measurement (m ass/volume)Ordered By: Arceliatino Wisesakinaazam on 06-17-2025 Glucose [Mass/Vol] 100 mg/dL High 70-99 [facility] Serum or plasma calcium susy urement (mass/volume)Ordered By: Nereyda Wisesakinaazam on 06-17-2025 Calcium [Mass/Vol] 9.3 mg/dL 7.6-11.0 [facility] Serum or plasma urea nitroge n measurement (mass/volume)Ordered By: Nereyda Manzo on 06-17-2025 Urea nitrogen [Mass/Vol] 14 mg/dL 4-19 [facility] Sodium levelOrdered By: Emilia connelly Frandysakinaazam on 06-17-2025 Sodium [Moles/Vol] 138 mmol/L 133-145 [facility] White blood cell (WBC) count Ordered By: Arceliatino Wisesakinaazam on 06-17-2025 WBC (Bld) [#/Vol] 6.1 10*3/uL 4.4-11.0 [facility] Clostridium difficile detect ion by polymerase chain reactionOrdered By: Nereyda Manzo on 06-16-2025 C. difficile DNA ZOEY+probe Ql (Unsp spec) [facility] Basic Metabolic Profile (BMP )on 06-12-2025 BUN Normal 4-19 [facility] Comment on above: Result Comment: Canc elled via OM: Ordered/Entered in error Performed By: #### L 500.2500 ####[facility] [address] [place], [address] BUN/CRE Normal 10-20 [facility] Comment on above: Result Comment: Canc elled via OM: Ordered/Entered in error Performed By: #### L 500.2500 ####[facility] [address] [place], [address] Calcium Normal 7.6-11.0 [facility] Comment on above: Result Comment: Canc elled via OM: Ordered/Entered in error Performed By: #### L 500.2500 ####[facility] [address] [place], [address] CL Normal 98-108 [facility] Comment on above: Result Comment: Canc elled via OM: Ordered/Entered in error Performed By: #### L 500.2500 ####[facility] [address] [place], [address] CO2 Normal 21.0-32.0 [facility] Comment on above: Result Comment: Canc elled via OM: Ordered/Entered in error Performed By: #### L 500.2500 ####[facility] [address] [place], [address] CREAT,SERUM Normal 0.70-1.20 [facility] Comment on above: Result Comment: Canc elled via OM: Ordered/Entered in error Performed By: #### L 500.2500 ####[facility] [address] [place], [address] eGFR Normal >60 [facility] Comment on above: Result Comment: Canc elled via OM: Ordered/Entered in error Performed By: #### L 500.2500 ####[facility] [address] [place], [address] GAP Normal 5-15 [facility] Comment on above: Result Comment: Canc elled via OM: Ordered/Entered in error Performed By: #### L 500.2500 ####[facility] [address] [place], [address] GLU Normal 70-99 [facility] Comment on above: Result Comment: Canc elled via OM: Ordered/Entered in error Performed By: #### L 500.2500 ####[facility] [address] [place], [address] Potassium Normal 3.3-5.1 [facility] Comment on above: Result Comment: Canc elled via OM: Ordered/Entered in error Performed By: #### L 500.2500 ####[facility] [address] [place], [address] Basic Metabolic Profile (BMP) Normal 133-145 [facility] Comment on above: Result Comment: Canc elled via OM: Ordered/Entered in error Performed By: #### L 500.2500 ####[facility] [address] [place], [address] Basic Metabolic Profile (BMP )on 06-11-2025 BUN Normal 4-19 [facility] Comment on above: Result Comment: Canc elled via OM: Order cancelled - Patient discharged Performed By: #### L 500.2500 ####[facility] [address] [place], [address] BUN/CRE Normal 10-20 [facility] Comment on above: Result Comment: Canc elled via OM: Order cancelled - Patient discharged Performed By: #### L 500.2500 ####[facility] [address] [place], [address] Calcium Normal 7.6-11.0 [facility] Comment on above: Result Comment: Canc elled via OM: Order cancelled - Patient discharged Performed By: #### L 500.2500 ####[facility] [address] [place], [address] CL Normal 98-108 [facility] Comment on above: Result Comment: Canc elled via OM: Order cancelled - Patient discharged Performed By: #### L 500.2500 ####[facility] [address] [place], [address] CO2 Normal 21.0-32.0 [facility] Comment on above: Result Comment: Canc elled via OM: Order cancelled - Patient discharged Performed By: #### L 500.2500 ####[facility] [address] [place], [address] CREAT,SERUM Normal 0.70-1.20 [facility] Comment on above: Result Comment: Canc elled via OM: Order cancelled - Patient discharged Performed By: #### L 500.2500 ####[facility] [address] [place], [address] eGFR Normal >60 [facility] Comment on above: Result Comment: Canc elled via OM: Order cancelled - Patient discharged Performed By: #### L 500.2500 ####[facility] [address] [place], [address] GAP Normal 5-15 [facility] Comment on above: Result Comment: Canc elled via OM: Order cancelled - Patient discharged Performed By: #### L 500.2500 ####[facility] [address] [place], [address] GLU Normal 70-99 [facility] Comment on above: Result Comment: Canc elled via OM: Order cancelled - Patient discharged Performed By: #### L 500.2500 ####[facility] [address] [place], [address] Potassium Normal 3.3-5.1 [facility] Comment on above: Result Comment: Canc elled via OM: Order cancelled - Patient discharged Performed By: #### L 500.2500 ####[facility] [address] [place], [address] Basic Metabolic Profile (BMP) Normal 133-145 [facility] Comment on above: Result Comment: Canc elled via OM: Order cancelled - Patient discharged Performed By: #### L 500.2500 ####[facility] [address] [place], [address] CBC W/Diff, Automatedon 08- Absolute Neut Normal 2.0-7.7 [facility] Comment on above: Result Comment: Canc elled via OM: Order cancelled - Patient discharged Performed By: #### L 100.0100 ####[facility] [address] [place], [address] HCT Normal 37-47 [facility] Comment on above: Result Comment: Canc elled via OM: Order cancelled - Patient discharged Performed By: #### L 100.0100 ####[facility] [address] [place], [address] HGB Normal 12.0-15.0 [facility] Comment on above: Result Comment: Canc elled via OM: Order cancelled - Patient discharged Performed By: #### L 100.0100 ####[facility] [address] [place], [address] MCH Normal 27.0-32.0 [facility] Comment on above: Result Comment: Canc elled via OM: Order cancelled - Patient discharged Performed By: #### L 100.0100 ####[facility] [address] [place], [address] MCHC Normal 32-36 [facility] Comment on above: Result Comment: Canc elled via OM: Order cancelled - Patient discharged Performed By: #### L 100.0100 ####[facility] [address] [place], [address] MCV Normal 81-99 [facility] Comment on above: Result Comment: Canc elled via OM: Order cancelled - Patient discharged Performed By: #### L 100.0100 ####[facility] [address] [place], [address] NEUT% Normal 47-70 [facility] Comment on above: Result Comment: Canc elled via OM: Order cancelled - Patient discharged Performed By: #### L 100.0100 ####[facility] [address] [place], [address] PLT Normal 150-450 [facility] Comment on above: Result Comment: Canc elled via OM: Order cancelled - Patient discharged Performed By: #### L 100.0100 ####[facility] [address] [place], [address] RBC Normal 4.2-5.4 [facility] Comment on above: Result Comment: Canc elled via OM: Order cancelled - Patient discharged Performed By: #### L 100.0100 ####[facility] [address] [place], [address] RDW CV Normal 11.6-14.6 [facility] Comment on above: Result Comment: Canc elled via OM: Order cancelled - Patient discharged Performed By: #### L 100.0100 ####[facility] [address] [place], [address] RDW SD Normal 35.1-43.9 [facility] Comment on above: Result Comment: Canc elled via OM: Order cancelled - Patient discharged Performed By: #### L 100.0100 ####[facility] [address] [place], [address] WBC Normal 4.4-11.0 [facility] Comment on above: Result Comment: Canc elled via OM: Order cancelled - Patient discharged Performed By: #### L 100.0100 ####[facility] [address] [place], [address] Anion gap in Serum or Plasma Ordered By: Vimal Angulo on 06-10-2025 Anion gap [Moles/Vol] 10 mmol/L 5-15 [facility] BUN/creatinine ratioOrdered By: Vimal Angulo on 06-10-2025 Urea nitrogen/Creatinine [Mass ratio] 20.8 mg/mg High 10-20 [facility] Basic Metabolic Profile (BMP )on 06-10-2025 BUN/CRE 20.8 RATIO High - [facility] Comment on above: Order Comment: 111.1 Performed By: #### L 500.2500, L100.0500 ####[facility] [address] [place], [address] Calcium [Mass/Vol] 9.2 mg/dL Normal 7.6-11.0 [facility] Comment on above: Order Comment: 111.1 Performed By: #### L 500.2500, L100.0500 ####[facility] [address] [place], [address] Chloride [Moles/Vol] 103 mmol/L Normal 98-108 [facility] Comment on above: Order Comment: 111.1 Performed By: #### L 500.2500, L100.0500 ####[facility] [address] [place], [address] CO2 [Moles/Vol] 25.2 mmol/L Normal 21.0-32.0 [facility] Comment on above: Order Comment: 111.1 Performed By: #### L 500.2500, L100.0500 ####[facility] [address] [place], [address] Creatinine [Mass/Vol] 0.68 mg/dL Low 0.70-1.20 [facility] Comment on above: Order Comment: 111.1 Performed By: #### L 500.2500, L100.0500 ####[facility] [address] [place], [address] GAP 10 Normal 5-15 [facility] Comment on above: Order Comment: 111.1 Performed By: #### L 500.2500, L100.0500 ####[facility] [address] [place], [address] GFR/1.73 sq M.predicted among non-blacks MDRD (S/P/Bld) [Vol rate/Area] 85 mL/min/{1.73_m2} Normal >60 [facility] Comment on above: Order Comment: 111.1 Result Comment: mL/m in/1.73m2 CKD-EPI Creatinine Equation (2020) Performed By: #### L 500.2500, L100.0500 ####[facility] [address] [place], [address] Glucose [Mass/Vol] 104 mg/dL High 70-99 [facility] Comment on above: Order Comment: 111.1 Performed By: #### L 500.2500, L100.0500 ####[facility] [address] [place], [address] Potassium [Moles/Vol] 4.0 mmol/L Normal 3.3-5.1 [facility] Comment on above: Order Comment: 111.1 Performed By: #### L 500.2500, L100.0500 ####[facility] [address] [place], [address] Sodium [Moles/Vol] 137 mmol/L Normal 133-145 [facility] Comment on above: Order Comment: 111.1 Performed By: #### L 500.2500, L100.0500 ####[facility] [address] [place], [address] Urea nitrogen [Mass/Vol] 14 mg/dL Normal 4-19 [facility] Comment on above: Order Comment: 111.1 Performed By: #### L 500.2500, L100.0500 ####[facility] [address] [place], [address] CBC-Complete Blood Cnt No Di ffon 06-10-2025 Erythrocyte distribution width (RBC) [Ratio] 14.8 % High 11.6-14.6 [facility] Comment on above: Order Comment: 111.1 Performed By: #### L 500.2500, L100.0500 ####[facility] [facility] [address] [place], [address] Hematocrit (Bld) [Volume fraction] 32.1 % Low 37-47 [facility] Comment on above: Order Comment: 111.1 Performed By: #### L 500.2500, L100.0500 ####[facility] [address] [place], [address] Hemoglobin (Bld) [Mass/Vol] 10.4 g/dL Low 12.0-15.0 [facility] Comment on above: Order Comment: 111.1 Performed By: #### L 500.2500, L100.0500 ####[facility] [address] [place], [address] MCH (RBC) [Entitic mass] 30.8 pg Normal 27.0-32.0 [facility] Comment on above: Order Comment: 111.1 Performed By: #### L 500.2500, L100.0500 ####[facility] [address] [place], [address] MCHC (RBC) [Mass/Vol] 32.4 g/dL Normal 32-36 [facility] Comment on above: Order Comment: 111.1 Performed By: #### L 500.2500, L100.0500 ####[facility] [address] [place], [address] MCV (RBC) [Entitic vol] 95.0 fL Normal 81-99 [facility] Comment on above: Order Comment: 111.1 Performed By: #### L 500.2500, L100.0500 ####[facility] [address] [place], [address] Platelet mean volume (Bld) [Entitic vol] 10.3 fL Normal 6.2-12.0 [facility] Comment on above: Order Comment: 111.1 Performed By: #### L 500.2500, L100.0500 ####[facility] [address] [place], [address] Platelets (Bld) [#/Vol] 197 10*3/uL Normal 150-450 [facility] Comment on above: Order Comment: 111.1 Performed By: #### L 500.2500, L100.0500 ####[facility] [address] [place], [address] RBC (Bld) [#/Vol] 3.38 10*6/uL Low 4.2-5.4 [facility] Comment on above: Order Comment: 111.1 Performed By: #### L 500.2500, L100.0500 ####[facility] [address] [place], [address] RDW SD 51.8 fl High 35.1-43.9 [facility] Comment on above: Order Comment: 111.1 Performed By: #### L 500.2500, L100.0500 ####[facility] [address] [place], [address] WBC (Bld) [#/Vol] 5.5 10*3/uL Normal 4.4-11.0 [facility] Comment on above: Order Comment: 111.1 Performed By: #### L 500.2500, L100.0500 ####[facility] [address] [place], [address] Carbon dioxide, total [Moles /volume] in Central venous bloodOrdered By: Vimal Angulo on 06-10-2025 CO2 [Moles/Vol] 25.2 mmol/L 21.0-32.0 [facility] Chloride assayOrdered By: Jairon Angulo on 06-10-2025 Chloride [Moles/Vol] 103 mmol/L 98-108 [facility] Erythrocyte distribution wid th ratioOrdered By: Vimal Angulo on 06-10-2025 Erythrocyte distribution width (RBC) [Ratio] 14.8 % High 11.6-14.6 [facility] Erythrocyte distribution wid th standard deviationOrdered By: Vimal Angulo on 06-10-2025 Erythrocyte distribution width (RBC) [Ratio] 51.8 fl High 35.1-43.9 [facility] Glomerular filtration rate ( GFR) estimation/1.73 sq m using serum, plasma, or whole bOrdered By: Vimal Angulo on 06-10-2025 GFR/1.73 sq M.predicted among non-blacks MDRD (S/P/Bld) [Vol rate/Area] 85 mL/min/{1.73_m2} >60 [facility] Hematocrit Auto (Bld) [Volum e fraction]Ordered By: Vimal Angulo on 06-10-2025 Hematocrit (Bld) [Volume fraction] 32.1 % Low 37-47 [facility] Hemoglobin measurementOrdere d By: Vimal Angulo on 06-10-2025 Hemoglobin (Bld) [Mass/Vol] 10.4 g/dL Low 12.0-15.0 [facility] MCV (mean corpuscular volume ) determinationOrdered By: Vimal Angulo on 06-10-2025 MCV (RBC) [Entitic vol] 95.0 fL 81-99 [facility] Mean corpuscular hemoglobin (MCH) determinationOrdered By: Vimal Angulo 06-10-2025 MCH (RBC) [Entitic mass] 30.8 pg 27.0-32.0 [facility] Platelet countOrdered By: Jairon Angulo on 06-10-2025 Platelets (Bld) [#/Vol] 197 10*3/uL 150-450 [facility] Potassium measurement (mass/ volume)Ordered By: Vimal Angulo on 06-10-2025 Potassium (Unsp spec) [Mass/Vol] 4.0 mmol/L 3.3-5.1 [facility] RBC Auto (Bld) [#/Vol]Ordere d By: Vimal Angulo on 06-10-2025 RBC (Bld) [#/Vol] 3.38 10*6/uL Low 4.2-5.4 [facility] Serum creatinine measurement (mass/volume)Ordered By: Vimal Angulo on 06-10-2025 Creatinine [Mass/Vol] 0.68 mg/dL Low 0.70-1.20 [facility] Serum glucose measurement (m ass/volume)Ordered By: Vimal Angulo on 06-10-2025 Glucose [Mass/Vol] 104 mg/dL High 70-99 [facility] Serum or plasma calcium susy urement (mass/volume)Ordered By: Vimal Angulo on 06-10-2025 Calcium [Mass/Vol] 9.2 mg/dL 7.6-11.0 [facility] Serum or plasma urea nitroge n measurement (mass/volume)Ordered By: Vimal Angulo on 06-10-2025 Urea nitrogen [Mass/Vol] 14 mg/dL 4-19 [facility] Sodium levelOrdered By: Brooks Angulo on 06-10-2025 Sodium [Moles/Vol] 137 mmol/L 133-145 [facility] White blood cell (WBC) count Ordered By: Vimal Angulo on 06-10-2025 WBC (Bld) [#/Vol] 5.5 10*3/uL 4.4-11.0 [facility] Anion gap in Serum or Plasma Ordered By: Vimal Angulo on 06-08-2025 Anion gap [Moles/Vol] 10 mmol/L 5-15 [facility] BUN/creatinine ratioOrdered By: Vimal Angulo on 06-08-2025 Urea nitrogen/Creatinine [Mass ratio] 26.8 mg/mg High 10-20 [facility] Bilirubin, totalOrdered By: Vimal Angulo on 06-08-2025 Bilirubin [Mass/Vol] 0.42 mg/dL 0.00-1.30 [facility] CBC-Complete Blood Cnt No Di ffon 06-08-2025 Erythrocyte distribution width (RBC) [Ratio] 14.9 % High 11.6-14.6 [facility] Comment on above: Order Comment: 111 Performed By: #### L 501.9310, L501.9985, L100.0500, L500.4100, L500.4050, L501.9520 ####[facility] [address] [place], [address] Hematocrit (Bld) [Volume fraction] 31.1 % Low 37-47 [facility] Comment on above: Order Comment: 111 Performed By: #### L 501.9310, L501.9985, L100.0500, L500.4100, L500.4050, L501.9520 ####[facility] [address] [place], [address] Hemoglobin (Bld) [Mass/Vol] 10.0 g/dL Low 12.0-15.0 [facility] Comment on above: Order Comment: 111 Performed By: #### L 501.9310, L501.9985, L100.0500, L500.4100, L500.4050, L501.9520 ####[facility] [address] [place], [address] MCH (RBC) [Entitic mass] 30.6 pg Normal 27.0-32.0 [facility] Comment on above: Order Comment: 111 Performed By: #### L 501.9310, L501.9985, L100.0500, L500.4100, L500.4050, L501.9520 ####[facility] [address] [place], [address] MCHC (RBC) [Mass/Vol] 32.2 g/dL Normal 32-36 [facility] Comment on above: Order Comment: 111 Performed By: #### L 501.9310, L501.9985, L100.0500, L500.4100, L500.4050, L501.9520 ####[facility] [address] [place], [address] MCV (RBC) [Entitic vol] 95.1 fL Normal 81-99 [facility] Comment on above: Order Comment: 111 Performed By: #### L 501.9310, L501.9985, L100.0500, L500.4100, L500.4050, L501.9520 ####[facility] [address] [place], [address] Platelet mean volume (Bld) [Entitic vol] 9.9 fL Normal 6.2-12.0 [facility] Comment on above: Order Comment: 111 Performed By: #### L 501.9310, L501.9985, L100.0500, L500.4100, L500.4050, L501.9520 ####[facility] [address] [place], [address] Platelets (Bld) [#/Vol] 199 10*3/uL Normal 150-450 [facility] Comment on above: Order Comment: 111 Performed By: #### L 501.9310, L501.9985, L100.0500, L500.4100, L500.4050, L501.9520 ####[facility] [address] [place], [address] RBC (Bld) [#/Vol] 3.27 10*6/uL Low 4.2-5.4 [facility] Comment on above: Order Comment: 111 Performed By: #### L 501.9310, L501.9985, L100.0500, L500.4100, L500.4050, L501.9520 ####[facility] [address] [place], [address] RDW SD 52.9 fl High 35.1-43.9 [facility] Comment on above: Order Comment: 111 Performed By: #### L 501.9310, L501.9985, L100.0500, L500.4100, L500.4050, L501.9520 ####[facility] [address] [place], [address] WBC (Bld) [#/Vol] 5.1 10*3/uL Normal 4.4-11.0 [facility] Comment on above: Order Comment: 111 Performed By: #### L 501.9310, L501.9985, L100.0500, L500.4100, L500.4050, L501.9520 ####[facility] [address] [place], [address] Calculated very low density lipoprotein (VLDL) cholesterol measurementOrdered By: Vimal Angulo on 06-08-2025 Calculated very low density lipoprotein (VLDL) cholesterol measurement 12 mg/dL 5-40 [facility] Carbon dioxide, total [Moles /volume] in Central venous bloodOrdered By: Vimal Angulo on 06-08-2025 CO2 [Moles/Vol] 25.3 mmol/L 21.0-32.0 [facility] Chloride assayOrdered By: Jairon Angulo on 06-08-2025 Chloride [Moles/Vol] 103 mmol/L 98-108 [facility] Comprehensive Metabolic Prof ilon 06-08-2025 Albumin [Mass/Vol] 3.2 g/dL Low 3.4-4.8 [facility] Comment on above: Order Comment: 111 Performed By: #### L 501.9310, L501.9985, L100.0500, L500.4100, L500.4050, L501.9520 ####[facility] [address] [place], [address] Albumin/Globulin [Mass ratio] 1.2 {ratio} Normal 0.9-2.4 [facility] Comment on above: Order Comment: 111 Performed By: #### L 501.9310, L501.9985, L100.0500, L500.4100, L500.4050, L501.9520 ####[facility] [address] [place], [address] ALK PHOS 114 U/L High 35-104 [facility] Comment on above: Order Comment: 111 Performed By: #### L 501.9310, L501.9985, L100.0500, L500.4100, L500.4050, L501.9520 ####[facility] [address] [place], [address] ALT [Catalytic activity/Vol] 5 U/L Normal <=34 [facility] Comment on above: Order Comment: 111 Performed By: #### L 501.9310, L501.9985, L100.0500, L500.4100, L500.4050, L501.9520 ####[facility] [address] [place], [address] AST [Catalytic activity/Vol] 43 U/L High <=31 [facility] Comment on above: Order Comment: 111 Performed By: #### L 501.9310, L501.9985, L100.0500, L500.4100, L500.4050, L501.9520 ####[facility] [address] [place], [address] Bilirubin [Mass/Vol] 0.42 mg/dL Normal 0.00-1.30 [facility] Comment on above: Order Comment: 111 Performed By: #### L 501.9310, L501.9985, L100.0500, L500.4100, L500.4050, L501.9520 ####[facility] [address] [place], [address] BUN/CRE 26.8 RATIO High 10-20 [facility] Comment on above: Order Comment: 111 Performed By: #### L 501.9310, L501.9985, L100.0500, L500.4100, L500.4050, L501.9520 ####[facility] [address] [place], [address] Calcium [Mass/Vol] 9.2 mg/dL Normal 7.6-11.0 [facility] Comment on above: Order Comment: 111 Performed By: #### L 501.9310, L501.9985, L100.0500, L500.4100, L500.4050, L501.9520 ####[facility] [address] [place], [address] Chloride [Moles/Vol] 103 mmol/L Normal 98-108 [facility] Comment on above: Order Comment: 111 Performed By: #### L 501.9310, L501.9985, L100.0500, L500.4100, L500.4050, L501.9520 ####[facility] [address] [place], [address] CO2 [Moles/Vol] 25.3 mmol/L Normal 21.0-32.0 [facility] Comment on above: Order Comment: 111 Performed By: #### L 501.9310, L501.9985, L100.0500, L500.4100, L500.4050, L501.9520 ####[facility] [address] [place], [address] Creatinine [Mass/Vol] 0.64 mg/dL Low 0.70-1.20 [facility] Comment on above: Order Comment: 111 Performed By: #### L 501.9310, L501.9985, L100.0500, L500.4100, L500.4050, L501.9520 ####[facility] [address] [place], [address] GAP 10 Normal 5-15 [facility] Comment on above: Order Comment: 111 Performed By: #### L 501.9310, L501.9985, L100.0500, L500.4100, L500.4050, L501.9520 ####[facility] [address] [place], [address] GFR/1.73 sq M.predicted among non-blacks MDRD (S/P/Bld) [Vol rate/Area] 86 mL/min/{1.73_m2} Normal >60 [facility] Comment on above: Order Comment: 111 Result Comment: mL/m in/1.73m2 CKD-EPI Creatinine Equation (2020) Performed By: #### L 501.9310, L501.9985, L100.0500, L500.4100, L500.4050, L501.9520 ####[facility] [address] [place], [address] Globulin (S) [Mass/Vol] 2.7 g/dL Normal 2.2-4.2 [facility] Comment on above: Order Comment: 111 Performed By: #### L 501.9310, L501.9985, L100.0500, L500.4100, L500.4050, L501.9520 ####[facility] [address] [place], [address] Glucose [Mass/Vol] 104 mg/dL High 70-99 [facility] Comment on above: Order Comment: 111 Performed By: #### L 501.9310, L501.9985, L100.0500, L500.4100, L500.4050, L501.9520 ####[facility] [address] [place], [address] Potassium [Moles/Vol] 3.6 mmol/L Normal 3.3-5.1 [facility] Comment on above: Order Comment: 111 Performed By: #### L 501.9310, L501.9985, L100.0500, L500.4100, L500.4050, L501.9520 ####[facility] [address] [place], [address] Sodium [Moles/Vol] 138 mmol/L Normal 133-145 [facility] Comment on above: Order Comment: 111 Performed By: #### L 501.9310, L501.9985, L100.0500, L500.4100, L500.4050, L501.9520 ####[facility] [address] [place], [address] T PROT 5.9 g/dL Normal 5.9-8.4 [facility] Comment on above: Order Comment: 111 Performed By: #### L 501.9310, L501.9985, L100.0500, L500.4100, L500.4050, L501.9520 ####[facility] [address] [place], [address] Urea nitrogen [Mass/Vol] 17 mg/dL Normal 4-19 [facility] Comment on above: Order Comment: 111 Performed By: #### L 501.9310, L501.9985, L100.0500, L500.4100, L500.4050, L501.9520 ####[facility] [address] [place], [address] Erythrocyte distribution wid th ratioOrdered By: Vimal Angulo on 06-08-2025 Erythrocyte distribution width (RBC) [Ratio] 14.9 % High 11.6-14.6 [facility] Erythrocyte distribution wid th standard deviationOrdered By: Vimal Angulo on 06-08-2025 Erythrocyte distribution width (RBC) [Ratio] 52.9 fl High 35.1-43.9 [facility] Glomerular filtration rate ( GFR) estimation/1.73 sq m using serum, plasma, or whole bOrdered By: Vimal Angulo on 06-08-2025 GFR/1.73 sq M.predicted among non-blacks MDRD (S/P/Bld) [Vol rate/Area] 86 mL/min/{1.73_m2} >60 [facility] Comment on above: mL/min/1.73m2 CKD-EP I Creatinine Equation (2020) Hematocrit Auto (Bld) [Volum e fraction]Ordered By: Vimal Angulo on 06-08-2025 Hematocrit (Bld) [Volume fraction] 31.1 % Low 37-47 [facility] Hemoglobin A1con 06-08-2025 HbA1c (Bld) [Mass fraction] 5.2 % Normal <=5.6 [facility] Comment on above: Order Comment: 111 Result Comment: Norm al < 5.7 % Prediabetic 5.7 - 6.4 % Diabetic >or= 6.5 % Please note range changes. Performed By: #### L 501.9310, L501.9985, L100.0500, L500.4100, L500.4050, L501.9520 ####[facility] [address] [place], [place], [address] Hemoglobin A1c percentageOrd ered By: Vimal Angulo on 06-08-2025 HbA1c (Bld) [Mass fraction] 5.2 % <5.7 [facility] Comment on above: Normal < 5.7 % Predi abetic 5.7 - 6.4 % Diabetic >or= 6.5 % Please note range changes. Hemoglobin measurementOrdere d By: Vimal Angulo on 06-08-2025 Hemoglobin (Bld) [Mass/Vol] 10.0 g/dL Low 12.0-15.0 [facility] LDL calc ser/plasOrdered By: Vimal Angulo on 06-08-2025 Cholesterol in LDL [Mass/Vol] 62 mg/dL [facility] Comment on above: Gcnllnrjzw=639-689 m g/dL & Higher Ippe=674 mg/dL or greaterFriedwald Equation for LDL-C Laboratory - Chemistry and C hemistry - challengeOrdered By: Vimal Angulo on 06-08-2025 AST [Catalytic activity/Vol] 43 U/L High <32 [facility] Lipid Profileon 06-08-2025 CHOL:HDL 2.24 Normal [facility] Comment on above: Order Comment: 111 Performed By: #### L 501.9310, L501.9985, L100.0500, L500.4100, L500.4050, L501.9520 ####[facility] [address] [place], [place], [address] Cholesterol [Mass/Vol] 135 mg/dL Normal <=200 [facility] Comment on above: Order Comment: 111 Result Comment: Chol esterol level, Desirable <200 mg/dLBorderline high cholesterol 200-239 mg/dLHigh cholesterol >=240 mg/dLRecommendations of the NCEP Adult Treatment Panel for thefollowing risk-cutoff thresholds for the [place] Americanpulation. Performed By: #### L 501.9310, L501.9985, L100.0500, L500.4100, L500.4050, L501.9520 ####[facility] [address] [place], [address] Cholesterol in HDL [Mass/Vol] 60 mg/dL Normal [facility] Comment on above: Order Comment: 111 Result Comment: Elaine onal Cholesterol Education Program (NCEP) guidelines:<40 mg/dL: Low HDL-cholesterol (major risk factor for CHD)>= 60 mg/dL: High HDL-cholesterol (negative risk factor forCHD)HDL-cholesterol is affected by a number of factors, e.g.smoking, exercise, hormones, sex and age. Performed By: #### L 501.9310, L501.9985, L100.0500, L500.4100, L500.4050, L501.9520 ####[facility] [address] [place], [address] Cholesterol in LDL [Mass/Vol] 62 mg/dL Normal [facility] Comment on above: Order Comment: 111 Result Comment: Bord xxejac=276-053 mg/dL Higher Pnwo=974 mg/dL or greaterFriedwald Equation for LDL-C Performed By: #### L 501.9310, L501.9985, L100.0500, L500.4100, L500.4050, L501.9520 ####[facility] [address] [place], [address] Cholesterol in VLDL [Mass/Vol] 12 mg/dL Normal 5-40 [facility] Comment on above: Order Comment: 111 Performed By: #### L 501.9310, L501.9985, L100.0500, L500.4100, L500.4050, L501.9520 ####[facility] [address] [place], [address] Triglyceride [Mass/Vol] 62 mg/dL Normal [facility] Comment on above: Order Comment: 111 Result Comment: The drugs N-Acetylcysteine and Metamizole may falselydepress this assay.Normal range: <150 mg/dLBorderline High: 150-199 mg/dLHigh: 200-499 mg/dLVery High: >500 mg/dL Performed By: #### L 501.9310, L501.9985, L100.0500, L500.4100, L500.4050, L501.9520 ####[facility] [address] [place], [address] MCV (mean corpuscular volume ) determinationOrdered By: Vimal Angulo on 06-08-2025 MCV (RBC) [Entitic vol] 95.1 fL 81-99 [facility] Mean corpuscular hemoglobin (MCH) determinationOrdered By: Vimal Angulo on 06-08-2025 MCH (RBC) [Entitic mass] 30.6 pg 27.0-32.0 [facility] Mean corpuscular hemoglobin concentration (MCHC) determinationOrdered By: Vimal Angulo on 06-08-2025 MCHC (RBC) [Mass/Vol] 32.2 g/dL 32-36 [facility] Mean platelet volume determi nationOrdered By: Vimal Angulo on 06-08-2025 Platelet mean volume (Bld) [Entitic vol] 9.9 fL 6.2-12.0 [facility] No Panel InformationOrdered By: Vimal Angulo on 06-08-2025 43 U/L High <32 [facility] Platelet countOrdered By: Jairon Angulo on 06-08-2025 Platelets (Bld) [#/Vol] 199 10*3/uL 150-450 [facility] Potassium measurement (mass/ volume)Ordered By: Vimal Angulo on 06-08-2025 Potassium (Unsp spec) [Mass/Vol] 3.6 mmol/L 3.3-5.1 [facility] RBC Auto (Bld) [#/Vol]Ordere d By: Vimal Angulo on 06-08-2025 RBC (Bld) [#/Vol] 3.27 10*6/uL Low 4.2-5.4 [facility] Screening total cholesterol/ high density lipoprotein (HDL) cholesterol ratioOrdered By: Vimal Angulo on 06-08-2025 Cholesterol.total/Cho lesterol in HDL [Mass ratio] 2.24 {ratio} [facility] Serum creatinine measurement (mass/volume)Ordered By: Vimal Angulo on 06-08-2025 Creatinine [Mass/Vol] 0.64 mg/dL Low 0.70-1.20 [facility] Serum globulin measurementOr dered By: Vimal Angulo on 06-08-2025 Globulin (S) [Mass/Vol] 2.7 g/dL 2.2-4.2 [facility] Serum glucose measurement (m ass/volume)Ordered By: Vimal Angulo on 06-08-2025 Glucose [Mass/Vol] 104 mg/dL High 70-99 [facility] Serum or plasma alanine woodall otransferase (ALT) measurementOrdered By: Vimal Angulo on 06-08-2025 ALT [Catalytic activity/Vol] 5 U/L <35 [facility] Serum or plasma albumin susy urement (mass/volume)Ordered By: Vimal Angulo on 06-08-2025 Albumin [Mass/Vol] 3.2 g/dL Low 3.4-4.8 [facility] Serum or plasma albumin/glob ulin mass ratioOrdered By: Vimal Angulo on 06-08-2025 Albumin/Globulin [Mass ratio] 1.2 {ratio} 0.9-2.4 [facility] Serum or plasma alkaline taisha sphatase measurementOrdered By: Vimal Angulo on 06-08-2025 ALP [Catalytic activity/Vol] 114 U/L High 35-104 [facility] Serum or plasma calcium susy urement (mass/volume)Ordered By: Vimal Angulo on 06-08-2025 Calcium [Mass/Vol] 9.2 mg/dL 7.6-11.0 [facility] Serum or plasma cholesterol in HDL measurement (mass/volume)Ordered By: Vimal Angulo on 06-08-2025 Cholesterol in HDL [Mass/Vol] 60 mg/dL >40 [facility] Comment on above: National Cholesterol Education Program (NCEP) guidelines:<40 mg/dL: Low HDL-cholesterol (major risk factor for CHD)>= 60 mg/dL: High HDL-cholesterol (negative risk factor for CHD)HDL-cholesterol is affected by a number of factors, e.g. smoking, exercise, hormones, sex and age. Serum or plasma cholesterol measurement (mass/volume)Ordered By: Vimal Angulo on 06-08-2025 Cholesterol [Mass/Vol] 135 mg/dL <201 [facility] Comment on above: Cholesterol level, D esirable <200 mg/dLBorderline high cholesterol 200-239 mg/dLHigh cholesterol >=240 mg/dLRecommendations of the NCEP Adult Treatment Panel for the following risk-cutoff thresholds for the [place] population. Serum or plasma urea nitroge n measurement (mass/volume)Ordered By: Vimal Angulo on 06-08-2025 Urea nitrogen [Mass/Vol] 17 mg/dL 4-19 [facility] Sodium levelOrdered By: Brooks Angulo on 06-08-2025 Sodium [Moles/Vol] 138 mmol/L 133-145 [facility] T4 Total, Thyroxinon 025 T4 [Mass/Vol] 6.9 ug/dL Normal 4.8-13.9 [facility] Comment on above: Order Comment: 111 Performed By: #### L 501.9310, L501.9985, L100.0500, L500.4100, L500.4050, L501.9520 ####[facility] [address] [place], [place], [id number] TSH DL <= 0.005 mIU/L QnOrde red By: Vimal Angulo on 06-08-2025 TSH Qn 1.760 uIU/mL 0.300-4.20 0 [facility] Thyroid Stim Hormone (TSH)on 06-08-2025 TSH 1.760 uIU/mL Normal 0.300-4.20 0 [facility] Comment on above: Order Comment: 111 Performed By: #### L 501.9310, L501.9985, L100.0500, L500.4100, L500.4050, L501.9520 ####[facility] [address] [place], [address] ThyroxineOrdered By: Vimal lockhart on 06-08-2025 T4 [Mass/Vol] 6.9 ug/dL 4.8-13.9 [facility] Total proteinOrdered By: Trent Angulo on 06-08-2025 Protein [Mass/Vol] 5.9 g/dL 5.9-8.4 [facility] Triglycerides measurementOrd ered By: Vimal Angulo on 06-08-2025 Triglyceride [Mass/Vol] 62 mg/dL <199 [facility] Comment on above: The drugs N-Acetylcy steine and Metamizole may falsely depress this assay. Normal range: <150 mg/dLBorderline High: 150-199 mg/dLHigh: 200-499 mg/dLVery High: >500 mg/dL White blood cell (WBC) count Ordered By: Vimal Angulo on 06-08-2025 WBC (Bld) [#/Vol] 5.1 10*3/uL 4.4-11.0 [facility] Basic Metabolic Profile (BMP )on 06-05-2025 BUN Normal 4-19 [facility] Comment on above: Result Comment: Canc elled via OM: Ordered/Entered in error Performed By: #### L 500.2500 ####[facility] [address] [place], [address] BUN/CRE Normal 10-20 [facility] Comment on above: Result Comment: Canc elled via OM: Ordered/Entered in error Performed By: #### L 500.2500 ####[facility] [address] [place], [address] Calcium Normal 7.6-11.0 [facility] Comment on above: Result Comment: Canc elled via OM: Ordered/Entered in error Performed By: #### L 500.2500 ####[facility] [address] [place], [address] CL Normal 98-108 [facility] Comment on above: Result Comment: Canc elled via OM: Ordered/Entered in error Performed By: #### L 500.2500 ####[facility] [address] [place], [address] CO2 Normal 21.0-32.0 [facility] Comment on above: Result Comment: Canc elled via OM: Ordered/Entered in error Performed By: #### L 500.2500 ####[facility] [address] [place], [address] CREAT,SERUM Normal 0.70-1.20 [facility] Comment on above: Result Comment: Canc elled via OM: Ordered/Entered in error Performed By: #### L 500.2500 ####[facility] [address] [place], [address] eGFR Normal >60 [facility] Comment on above: Result Comment: Canc elled via OM: Ordered/Entered in error Performed By: #### L 500.2500 ####[facility] [address] [place], [address] GAP Normal 5-15 [facility] Comment on above: Result Comment: Canc elled via OM: Ordered/Entered in error Performed By: #### L 500.2500 ####[facility] [address] [place], [address] GLU Normal 70-99 [facility] Comment on above: Result Comment: Canc elled via OM: Ordered/Entered in error Performed By: #### L 500.2500 ####[facility] [address] [place], [address] Potassium Normal 3.3-5.1 [facility] Comment on above: Result Comment: Canc elled via OM: Ordered/Entered in error Performed By: #### L 500.2500 ####[facility] [address] [place], [address] Basic Metabolic Profile (BMP) Normal 133-145 [facility] Comment on above: Result Comment: Canc elled via OM: Ordered/Entered in error Performed By: #### L 500.2500 ####[facility] [address] [place], [address] Abd Inc Decub and/or Erecton 06-04-2025 Abd Inc Decub and/or Erect Normal [facility] Absolute lymphocyte countOrd ered By: Eh Ashbyok on 06-04-2025 Lymphocytes Auto (Unsp spec) [#/Vol] 1.26 10*3/uL 0.83-4.51 [facility] Absolute neutrophil countOrd ered By: Eh Flaquito on 06-04-2025 Neutrophils (Bld) [#/Vol] 4.0 10*3/uL 2.0-7.7 [facility] Anion gap in Serum or Plasma Ordered By: Eh Huddleston on 06-04-2025 Anion gap [Moles/Vol] 11 mmol/L 5-15 [facility] Automated lymphocyte count a s percentage of total leukocytesOrdered By: [facility] Flaquito on 06-04-2025 Lymphocytes/100 WBC Auto (Unsp spec) 19.7 % 19-41 [facility] BUN/creatinine ratioOrdered By: Eh Huddleston on 06-04-2025 Urea nitrogen/Creatinine [Mass ratio] 33.2 mg/mg High 10-20 [facility] Basic Metabolic Profile (BMP )on 06-04-2025 BUN/CRE 33.2 RATIO High 10-20 [facility] Comment on above: Performed By: #### L 500.2500 ####[facility] [address] [place], [address] Calcium [Mass/Vol] 9.1 mg/dL Normal 7.6-11.0 [facility] Comment on above: Performed By: #### L 500.2500 ####[facility] [address] [place], [address] Chloride [Moles/Vol] 102 mmol/L Normal 98-108 [facility] Comment on above: Performed By: #### L 500.2500 ####[facility] [address] [place], [address] CO2 [Moles/Vol] 24.6 mmol/L Normal 21.0-32.0 [facility] Comment on above: Performed By: #### L 500.2500 ####[facility] [address] [place], [address] Creatinine [Mass/Vol] 0.68 mg/dL Low 0.70-1.20 [facility] Comment on above: Performed By: #### L 500.2500 ####[facility] [address] [place], [address] ECRCL 53.29 ml/min Normal 50-250 [facility] Comment on above: Performed By: #### L 500.2500 ####[facility] [address] [place], [address] GAP 11 Normal 5-15 [facility] Comment on above: Performed By: #### L 500.2500 ####[facility] [address] [place], [address] GFR/1.73 sq M.predicted among non-blacks MDRD (S/P/Bld) [Vol rate/Area] 85 mL/min/{1.73_m2} Normal >60 [facility] Comment on above: Result Comment: mL/m in/1.73m2 CKD-EPI Creatinine Equation (2020) Performed By: #### L 500.2500 ####[facility] [address] [place], [address] Glucose [Mass/Vol] 104 mg/dL High 70-99 [facility] Comment on above: Performed By: #### L 500.2500 ####[facility] [address] [place], [address] Potassium [Moles/Vol] 3.5 mmol/L Normal 3.3-5.1 [facility] Comment on above: Performed By: #### L 500.2500 ####[facility] [address] [place], [address] Sodium [Moles/Vol] 137 mmol/L Normal 133-145 [facility] Comment on above: Performed By: #### L 500.2500 ####[facility] [address] [place], [address] Urea nitrogen [Mass/Vol] 23 mg/dL High 4-19 [facility] Comment on above: Performed By: #### L 500.2500 ####[facility] [address] [place], [address] Basophil percentageOrdered B y: Eh Huddleston on 06-04-2025 Basophils/100 WBC (Bld) 0.8 % 0-1 [facility] CBC W/Diff, Automatedon Absolute Lymph 1.26 X10 3/uL Normal 0.83-4.51 [facility] Comment on above: Performed By: #### L 100.0100 ####[facility] [address] [place], [address] Absolute Neut 4.0 X10 3/uL Normal 2.0-7.7 [facility] Comment on above: Performed By: #### L 100.0100 ####[facility] [address] [place], [address] Basophils/100 WBC (Bld) 0.8 % Normal 0-1 [facility] Comment on above: Performed By: #### L 100.0100 ####[facility] [address] [place], [address] Eosinophils/100 WBC (Bld) 5.1 % High 0-5 [facility] Comment on above: Performed By: #### L 100.0100 ####[facility] [address] [place], [address] Erythrocyte distribution width (RBC) [Ratio] 15.4 % High 11.6-14.6 [facility] Comment on above: Performed By: #### L 100.0100 ####[facility] [address] [place], [address] Hematocrit (Bld) [Volume fraction] 29.4 % Low 37-47 [facility] Comment on above: Performed By: #### L 100.0100 ####[facility] [address] [place], [address] Hemoglobin (Bld) [Mass/Vol] 9.3 g/dL Low 12.0-15.0 [facility] Comment on above: Performed By: #### L 100.0100 ####[facility] [address] [place], [address] IG% 0.300 Normal 0.0-0.9 [facility] Comment on above: Result Comment: IG% - Immature Granulocytes (promyelocytes, myelocytes andmetamyelocytes) > 1% indicates that a LEFT SHIFT is Present. Performed By: #### L 100.0100 ####[facility] [address] [place], [address] Lymphocytes/100 WBC (Bld) 19.7 % Normal 19-41 [facility] Comment on above: Performed By: #### L 100.0100 ####[facility] [address] [place], [address] MCH (RBC) [Entitic mass] 30.4 pg Normal 27.0-32.0 [facility] Comment on above: Performed By: #### L 100.0100 ####[facility] [address] [place], [address] MCHC (RBC) [Mass/Vol] 31.6 g/dL Low 32-36 [facility] Comment on above: Performed By: #### L 100.0100 ####[facility] [address] [place], [address] MCV (RBC) [Entitic vol] 96.1 fL Normal 81-99 [facility] Comment on above: Performed By: #### L 100.0100 ####[facility] [address] [place], [address] Monocytes/100 WBC (Bld) 11.2 % High 0-10 [facility] Comment on above: Performed By: #### L 100.0100 ####[facility] [address] [place], [address] Neutrophils/100 WBC (Bld) 62.9 % Normal 47-70 [facility] Comment on above: Performed By: #### L 100.0100 ####[facility] [address] [place], [address] Nucleated RBC (Bld) [#/Vol] 0 10*3/uL Normal 0-5 [facility] Comment on above: Performed By: #### L 100.0100 ####[facility] [address] [place], [address] Platelet mean volume (Bld) [Entitic vol] 9.9 fL Normal 6.2-12.0 [facility] Comment on above: Performed By: #### L 100.0100 ####[facility] [address] [place], [address] Platelets (Bld) [#/Vol] 214 10*3/uL Normal 150-450 [facility] Comment on above: Performed By: #### L 100.0100 ####[facility] [address] [place], [address] RBC (Bld) [#/Vol] 3.06 10*6/uL Low 4.2-5.4 [facility] Comment on above: Performed By: #### L 100.0100 ####[facility] [address] [place], [address] RDW SD 54.1 fl High 35.1-43.9 [facility] Comment on above: Performed By: #### L 100.0100 ####[facility] [address] [place], [address] WBC (Bld) [#/Vol] 6.4 10*3/uL Normal 4.4-11.0 [facility] Comment on above: Performed By: #### L 100.0100 ####[facility] [address] [place], [address] CDIFF (PCR)on 06-04-2025 CDIFF Normal [facility] Comment on above: Performed By: #### M 100.6795, M100.6796, M100.637 ####[facility] [address] [place], [address] Carbon dioxide, total [Moles /volume] in Central venous bloodOrdered By: Eh Huddleston on 06-04-2025 CO2 [Moles/Vol] 24.6 mmol/L 21.0-32.0 [facility] Chloride assayOrdered By: Collin Huddleston on 06-04-2025 Chloride [Moles/Vol] 102 mmol/L 98-108 [facility] Clostridium Diff Toxin/Agon 06-04-2025 CDIFF (EIA) Normal [facility] Comment on above: Performed By: #### M 100.6795, M100.6796, M100.637 ####[facility] [address] [place], [address] Clostridium difficile detect ion by polymerase chain reactionOrdered By: Eh Huddleston on 06-04-2025 C. difficile DNA ZOEY+probe Ql (Unsp spec) [facility] ENTERIC PATHOGEN PANEL STOOL on 06-04-2025 EP PANEL Normal [facility] Comment on above: Performed By: #### M 100.6795, M100.6796, M100.637 ####[facility] [address] [place], [address] Eosinophil percentageOrdered By: Eh Huddleston 06-04-2025 Eosinophils/100 WBC (Bld) 5.1 % High 0-5 [facility] Erythrocyte distribution wid th ratioOrdered By: [facility] 06-[facility]2025 Erythrocyte distribution width (RBC) [Ratio] 15.4 % High 11.6-14.6 [facility] Erythrocyte distribution wid th standard deviationOrdered By: Eh Flaquito 06-04-2025 Erythrocyte distribution width (RBC) [Ratio] 54.1 fl High 35.1-43.9 [facility] Glomerular filtration rate ( GFR) estimation/1.73 sq m using serum, plasma, or whole bOrdered By: [facility] 06-04-2025 GFR/1.73 sq M.predicted among non-blacks MDRD (S/P/Bld) [Vol rate/Area] 85 mL/min/{1.73_m2} >60 [facility] Comment on above: mL/min/1.73m2 CKD-EP I Creatinine Equation (2020) Hematocrit Auto (Bld) [Volum e fraction]Ordered By: Eh Flaquito 06-04-2025 Hematocrit (Bld) [Volume fraction] 29.4 % Low 37-47 [facility] Hemoglobin measurementOrdere d By: Eh Flaquito 06-04-2025 Hemoglobin (Bld) [Mass/Vol] 9.3 g/dL Low 12.0-15.0 [facility] Immature granulocytes/100 WB C Auto (Bld)Ordered By: Eh Huddleston 06-04-2025 Immature granulocytes/100 WBC (Bld) 0.300 % 0.0-0.9 [facility] Comment on above: IG% - Immature Granu locytes (promyelocytes, myelocytes and metamyelocytes) > 1% indicates that a LEFT SHIFT is Present. MCV (mean corpuscular volume ) determinationOrdered By: Eh Huddleston 06-04-2025 MCV (RBC) [Entitic vol] 96.1 fL 81-99 [facility] Mean corpuscular hemoglobin (MCH) determinationOrdered By: Eh Huddleston on 06-04-2025 MCH (RBC) [Entitic mass] 30.4 pg 27.0-32.0 [facility] Mean corpuscular hemoglobin concentration (MCHC) determinationOrdered By: Eh Huddleston on 06-04-2025 MCHC (RBC) [Mass/Vol] 31.6 g/dL Low 32-36 [facility] Mean platelet volume determi nationOrdered By: Eh Huddleston on 06-04-2025 Platelet mean volume (Bld) [Entitic vol] 9.9 fL 6.2-12.0 [facility] Monocyte percentageOrdered B y: Eh Huddleston on 06-04-2025 Monocytes/100 WBC (Bld) 11.2 % High 0-10 [facility] Neutrophil percentageOrdered By: Eh Huddleston on 06-04-2025 Neutrophils/100 WBC (Bld) 62.9 % 47-70 [facility] Nucleated red blood cell per centageOrdered By: Eh Huddleston on 06-04-2025 Nucleated RBC/100 WBC (Bld) [Ratio] 0 % 0-5 [facility] Platelet countOrdered By: Collin Huddleston on 06-04-2025 Platelets (Bld) [#/Vol] 214 10*3/uL 150-450 [facility] Potassium measurement (mass/ volume)Ordered By: Eh Huddleston on 06-04-2025 Potassium (Unsp spec) [Mass/Vol] 3.5 mmol/L 3.3-5.1 [facility] RBC Auto (Bld) [#/Vol]Ordere d By: Eh Huddleston on 06-04-2025 RBC (Bld) [#/Vol] 3.06 10*6/uL Low 4.2-5.4 [facility] Serum creatinine measurement (mass/volume)Ordered By: Eh Huddleston 06-04-2025 Creatinine [Mass/Vol] 0.68 mg/dL Low 0.70-1.20 [facility] Serum glucose measurement (m ass/volume)Ordered By: Eh Huddleston on 06-04-2025 Glucose [Mass/Vol] 104 mg/dL High 70-99 [facility] Serum or plasma calcium susy urement (mass/volume)Ordered By: Eh Huddleston 06-04-2025 Calcium [Mass/Vol] 9.1 mg/dL 7.6-11.0 [facility] Serum or plasma urea nitroge n measurement (mass/volume)Ordered By: Eh Huddleston on 06-04-2025 Urea nitrogen [Mass/Vol] 23 mg/dL High 4-19 [facility] Sodium levelOrdered By: Eh Huddleston on 06-04-2025 Sodium [Moles/Vol] 137 mmol/L 133-145 [facility] Stool Clostridium difficile detectionOrdered By: Eh Huddleston on 06-04-2025 C. difficile Ql (Stl) [facility] White blood cell (WBC) count Ordered By: Eh Huddleston on 06-04-2025 WBC (Bld) [#/Vol] 6.4 10*3/uL 4.4-11.0 [facility] Venous duplex ultrasound rep ortOrdered By: Basim Murillo on 06-02-2025 US Vein [facility] [address] [place] [address] Venous Duplex US, Unilateral 06/01/25 1051 MR#: [id number] Acct: [id number] Name: GOGO WARE p #:[id number] : 1940 85 From: Basim Millard Attending [...] Chi Performed By: Berta Walls, KRISTEN, RVT 06/02/25814 Date _ Basim Murillo MD CC: Dr. Eh Huddleston MD ~ Date Dictated: 06/01/25 1051 Date Transcribed: 06/02/25814 Finisher Brush: Signed [facility] Work Phone: Venous Duplex US, Unilateral on 06-01-2025 Venous Duplex US, Unilateral Normal [facility] Urine Cultureon 05-30-2025 URC Normal [facility] Comment on above: Performed By: #### M 100.2200, L400.0001 ####[facility] [address] [place], [place], [address] Basic Metabolic Profile (BMP )on 05-29-2025 BUN Normal 4-19 [facility] Comment on above: Result Comment: Canc elled via OM: Ordered/Entered in error Performed By: #### L 500.2500 ####[facility] [address] [place], [place], [address] BUN/CRE Normal 10-20 [facility] Comment on above: Result Comment: Canc elled via OM: Ordered/Entered in error Performed By: #### L 500.2500 ####[facility] [address] [place], [address] Calcium Normal 7.6-11.0 [facility] Comment on above: Result Comment: Canc elled via OM: Ordered/Entered in error Performed By: #### L 500.2500 ####[facility] [address] [place], [address] CL Normal 98-108 [facility] Comment on above: Result Comment: Canc elled via OM: Ordered/Entered in error Performed By: #### L 500.2500 ####[facility] [address] [place], [address] CO2 Normal 21.0-32.0 [facility] Comment on above: Result Comment: Canc elled via OM: Ordered/Entered in error Performed By: #### L 500.2500 ####[facility] [address] [place], [address] CREAT,SERUM Normal 0.70-1.20 [facility] Comment on above: Result Comment: Canc elled via OM: Ordered/Entered in error Performed By: #### L 500.2500 ####[facility] [address] [place], [address] eGFR Normal >60 [facility] Comment on above: Result Comment: Canc elled via OM: Ordered/Entered in error Performed By: #### L 500.2500 ####[facility] [address] [place], [address] GAP Normal 5-15 [facility] Comment on above: Result Comment: Canc elled via OM: Ordered/Entered in error Performed By: #### L 500.2500 ####[facility] [address] [place], [address] GLU Normal 70-99 [facility] Comment on above: Result Comment: Canc elled via OM: Ordered/Entered in error Performed By: #### L 500.2500 ####[facility] [address] [place], [address] Potassium Normal 3.3-5.1 [facility] Comment on above: Result Comment: Canc elled via OM: Ordered/Entered in error Performed By: #### L 500.2500 ####[facility] [address] [place], [address] Basic Metabolic Profile (BMP) Normal 133-145 [facility] Comment on above: Result Comment: Canc elled via OM: Ordered/Entered in error Performed By: #### L 500.2500 ####[facility] [address] [place], [address] Basic Metabolic Profile (BMP )on 05-28-2025 BUN/CRE 30.6 RATIO High 10-20 [facility] Comment on above: Performed By: #### L 500.2500 ####[facility] [address] [place], [address] Calcium [Mass/Vol] 8.6 mg/dL Normal 7.6-11.0 [facility] Comment on above: Performed By: #### L 500.2500 ####[facility] [address] [place], [address] Chloride [Moles/Vol] 102 mmol/L Normal 98-108 [facility] Comment on above: Performed By: #### L 500.2500 ####[facility] [address] [place], [address] CO2 [Moles/Vol] 25.9 mmol/L Normal 21.0-32.0 [facility] Comment on above: Performed By: #### L 500.2500 ####[facility] [address] [place], [address] Creatinine [Mass/Vol] 0.73 mg/dL Normal 0.70-1.20 [facility] Comment on above: Performed By: #### L 500.2500 ####[facility] [address] [place], [address] ECRCL 52.76 ml/min Normal 50-250 [facility] Comment on above: Performed By: #### L 500.2500 ####[facility] [address] [place], [address] GAP 10 Normal 5-15 [facility] Comment on above: Performed By: #### L 500.2500 ####[facility] [address] [place], [address] GFR/1.73 sq M.predicted among non-blacks MDRD (S/P/Bld) [Vol rate/Area] 81 mL/min/{1.73_m2} Normal >60 [facility] Comment on above: Result Comment: mL/m in/1.73m2 CKD-EPI Creatinine Equation (2020) Performed By: #### L 500.2500 ####[facility] [address] [place], [address] Glucose [Mass/Vol] 108 mg/dL High 70-99 [facility] Comment on above: Performed By: #### L 500.2500 ####[facility] [address] [place], [address] Potassium [Moles/Vol] 3.9 mmol/L Normal 3.3-5.1 [facility] Comment on above: Result Comment: Hemo lysis present, Results??could be affected.?? Performed By: #### L 500.2500 ####[facility] [address] [place], [address] Sodium [Moles/Vol] 137 mmol/L Normal 133-145 [facility] Comment on above: Performed By: #### L 500.2500 ####[facility] [address] [place], [address] Urea nitrogen [Mass/Vol] 22 mg/dL High 4-19 [facility] Comment on above: Performed By: #### L 500.2500 ####[facility] [address] [place], [address] CBC W/Diff, Automatedon 08-0 -2024 Absolute Lymph 1.45 X10 3/uL Normal 0.83-4.51 [facility] Comment on above: Performed By: #### L 100.0100 ####[facility] [address] [place], [address] Absolute Neut 3.5 X10 3/uL Normal 2.0-7.7 [facility] Comment on above: Performed By: #### L 100.0100 ####[facility] [address] [place], [address] Basophils/100 WBC (Bld) 0.7 % Normal 0-1 [facility] Comment on above: Performed By: #### L 100.0100 ####[facility] [address] [place], [address] Eosinophils/100 WBC (Bld) 3.7 % Normal 0-5 [facility] Comment on above: Performed By: #### L 100.0100 ####[facility] [address] [place], [address] Erythrocyte distribution width (RBC) [Ratio] 15.5 % High 11.6-14.6 [facility] Comment on above: Performed By: #### L 100.0100 ####[facility] [address] [place], [address] Hematocrit (Bld) [Volume fraction] 26.8 % Low 37-47 [facility] Comment on above: Performed By: #### L 100.0100 ####[facility] [address] [place], [address] Hemoglobin (Bld) [Mass/Vol] 8.4 g/dL Low 12.0-15.0 [facility] Comment on above: Performed By: #### L 100.0100 ####[facility] [address] [place], [address] IG% 0.700 Normal 0.0-0.9 [facility] Comment on above: Result Comment: IG% - Immature Granulocytes (promyelocytes, myelocytes andmetamyelocytes) > 1% indicates that a LEFT SHIFT is Present. Performed By: #### L 100.0100 ####[facility] [address] [place], [address] Lymphocytes/100 WBC (Bld) 24.2 % Normal 19-41 [facility] Comment on above: Performed By: #### L 100.0100 ####[facility] [address] [place], [address] MCH (RBC) [Entitic mass] 30.1 pg Normal 27.0-32.0 [facility] Comment on above: Performed By: #### L 100.0100 ####[facility] [address] [place], [address] MCHC (RBC) [Mass/Vol] 31.3 g/dL Low 32-36 [facility] Comment on above: Performed By: #### L 100.0100 ####[facility] [address] [place], [address] MCV (RBC) [Entitic vol] 96.1 fL Normal 81-99 [facility] Comment on above: Performed By: #### L 100.0100 ####[facility] [address] [place], [address] Monocytes/100 WBC (Bld) 12.4 % High 0-10 [facility] Comment on above: Performed By: #### L 100.0100 ####[facility] [address] [place], [address] Neutrophils/100 WBC (Bld) 58.3 % Normal 47-70 [facility] Comment on above: Performed By: #### L 100.0100 ####[facility] [address] [place], [address] Nucleated RBC (Bld) [#/Vol] 0 10*3/uL Normal 0-5 [facility] Comment on above: Performed By: #### L 100.0100 ####[facility] [address] [place], [address] Platelet mean volume (Bld) [Entitic vol] 9.4 fL Normal 6.2-12.0 [facility] Comment on above: Performed By: #### L 100.0100 ####[facility] [address] [place], [address] Platelets (Bld) [#/Vol] 264 10*3/uL Normal 150-450 [facility] Comment on above: Performed By: #### L 100.0100 ####[facility] [address] [place], [address] RBC (Bld) [#/Vol] 2.79 10*6/uL Low 4.2-5.4 [facility] Comment on above: Performed By: #### L 100.0100 ####[facility] [address] [place], [address] RDW SD 53.9 fl High 35.1-43.9 [facility] Comment on above: Performed By: #### L 100.0100 ####[facility] [address] [place], [address] WBC (Bld) [#/Vol] 6.0 10*3/uL Normal 4.4-11.0 [facility] Comment on above: Performed By: #### L 100.0100 ####[facility] [address] [place], [address] Bilirubin Test strip Ql (U)O rdered By: Eh Huddleston on 05-25-2025 Bilirubin Ql (U) Negative Negative [facility] Ketones Test strip Ql (U)Ord ered By: Eh Huddleston on 05-25-2025 Ketones Ql (U) Negative Negative [facility] Microscopic analysis of urin e for red blood cells (RBC)Ordered By: Eh Huddleston on 05-25-2025 Microscopic analysis of urine for red blood cells (RBC) 0-5 SEEN /hpf 0-5 [facility] Mucus LM Ql (Urine sed)Order ed By: Eh Huddleston on 05-25-2025 Mucus Ql (Urine sed) 0 SEEN /hpf [facility] Nitrite Test strip Ql (U)Ord ered By: Eh Huddleston on 05-25-2025 Nitrite Ql (U) Positive High Negative [facility] Protein Test strip Ql (U)Ord ered By: Eh Huddleston on 05-25-2025 Protein Ql (U) 15 mg/dl High Negative [facility] Squamous epithelial cells de tection in urine sediment by light microscopyOrdered By: Eh Huddleston on 05-25-2025 Epithelial cells.squamous LM Ql (Urine sed) 0-5 SEEN /hpf 5-10 [facility] Urinalysis, Completeon 05-25 RBC 0-5 SEEN Normal 0-5 [facility] Comment on above: Order Comment: LORNA TER SPECIMEN Performed By: #### M 100.2200, L400.0001 ####[facility] [address] [place], [address] BACTERIA 3+ /hpf Normal None Seen [facility] Comment on above: Order Comment: LORNA TER SPECIMEN Performed By: #### M 100.2200, L400.0001 ####[facility] [address] [place], [address] EPI,SQUAMOUS 0-5 SEEN Normal 5-10 [facility] Comment on above: Order Comment: LORNA TER SPECIMEN Performed By: #### M 100.2200, L400.0001 ####[facility] [address] [place], [address] WBC 10-25 SEEN Normal 0-5 [facility] Comment on above: Order Comment: LORNA TER SPECIMEN Performed By: #### M 100.2200, L400.0001 ####[facility] [address] [place], [address] Mucus Ql (Urine sed) 0 SEEN Normal [facility] Comment on above: Order Comment: LORNA TER SPECIMEN Performed By: #### M 100.2200, L400.0001 ####[facility] [address] [place], [address] Urine clarityOrdered By: Eh Huddleston on 05-25-2025 Clarity (U) Sl. Cloudy Clear [facility] Urine color determinationOrd ered By: Eh Huddleston on 05-25-2025 Color (U) Straw Yellow [facility] Urine cultureOrdered By: Eh Huddleston on 05-25-2025 Bacteria identified Cx Nom (U) Escherichia coli Abnormal [facility] Bacteria identified Cx Nom (U) Klebsiella pneumoniae sp pneum Abnormal [facility] Bacteria identified Cx Nom (U) Pseudomonas aeruginosa Abnormal [facility] Urine glucose detectionOrder ed By: Eh Huddleston on 05-25-2025 Glucose Ql (U) Normal mg/dl Normal [facility] Urine leukocyte esterase det ection by dipstickOrdered By: Eh Huddleston on 05-25-2025 Leukocyte esterase Test strip Ql (U) 500 /ul High Negative [facility] Urine pHOrdered By: Eh Huddleston on 05-25-2025 pH (U) 7.0 [pH] 5.0 - 8.0 [facility] Urine sediment bacteria coun t by microscopy (number/high power field)Ordered By: Eh Huddleston on 05-25-2025 Bacteria LM.HPF (Urine sed) [#/Area] 3 /[HPF] None Seen [facility] Urine specific gravity measu rementOrdered By: Eh Huddleston on 05-25-2025 Specific gravity (U) [Rel density] 1.005 1.002-1.03 0 [facility] Urine urobilinogen measureme ntOrdered By: Eh Huddleston on 05-25-2025 Urobilinogen Ql (U) Normal mg/dl Normal [facility] White blood cell countOrdere d By: Eh Huddleston on 05-25-2025 White blood cell count 10-25 SEEN /hpf 0-5 [facility] HH, Hemoglobin AND Hematocri ton 05-23-2025 Hematocrit (Bld) [Volume fraction] 26.1 % Low 37-47 [facility] Comment on above: Performed By: #### L 100.0600 ####[facility] [address] [place], [address] Hemoglobin (Bld) [Mass/Vol] 8.3 g/dL Low 12.0-15.0 [facility] Comment on above: Performed By: #### L 100.0600 ####[facility] [address] [place], [address] Hematocrit Auto (Bld) [Volum e fraction]Ordered By: Eh Huddleston on 05-23-2025 Hematocrit (Bld) [Volume fraction] 26.1 % Low 37-47 [facility] Hemoglobin measurementOrdere d By: Eh Huddleston on 05-23-2025 Hemoglobin (Bld) [Mass/Vol] 8.3 g/dL Low 12.0-15.0 [facility] Basic Metabolic Profile (BMP )on 05-22-2025 BUN Normal 4-19 [facility] Comment on above: Result Comment: Canc elled via OM: Ordered/Entered in error Performed By: #### L 500.2500 ####[facility] [address] [place], [address] BUN/CRE Normal 10-20 [facility] Comment on above: Result Comment: Canc elled via OM: Ordered/Entered in error Performed By: #### L 500.2500 ####[facility] [address] [place], [address] Calcium Normal 7.6-11.0 [facility] Comment on above: Result Comment: Canc elled via OM: Ordered/Entered in error Performed By: #### L 500.2500 ####[facility] [address] [place], [address] CL Normal 98-108 [facility] Comment on above: Result Comment: Canc elled via OM: Ordered/Entered in error Performed By: #### L 500.2500 ####[facility] [address] [place], [address] CO2 Normal 21.0-32.0 [facility] Comment on above: Result Comment: Canc elled via OM: Ordered/Entered in error Performed By: #### L 500.2500 ####[facility] [address] [place], [address] CREAT,SERUM Normal 0.70-1.20 [facility] Comment on above: Result Comment: Canc elled via OM: Ordered/Entered in error Performed By: #### L 500.2500 ####[facility] [address] [place], [address] eGFR Normal >60 [facility] Comment on above: Result Comment: Canc elled via OM: Ordered/Entered in error Performed By: #### L 500.2500 ####[facility] [address] [place], [address] GAP Normal 5-15 [facility] Comment on above: Result Comment: Canc elled via OM: Ordered/Entered in error Performed By: #### L 500.2500 ####[facility] [address] [place], [address] GLU Normal 70-99 [facility] Comment on above: Result Comment: Canc elled via OM: Ordered/Entered in error Performed By: #### L 500.2500 ####[facility] [address] [place], [address] Potassium Normal 3.3-5.1 [facility] Comment on above: Result Comment: Canc elled via OM: Ordered/Entered in error Performed By: #### L 500.2500 ####[facility] [address] [place], [address] Basic Metabolic Profile (BMP) Normal 133-145 [facility] Comment on above: Result Comment: Canc elled via OM: Ordered/Entered in error Performed By: #### L 500.2500 ####[facility] [address] [place], [address] Absolute lymphocyte countOrd ered By: Eh Huddleston on 05-21-2025 Lymphocytes Auto (Unsp spec) [#/Vol] 1.60 10*3/uL 0.83-4.51 [facility] Absolute neutrophil countOrd ered By: Eh Huddleston on 05-21-2025 Neutrophils (Bld) [#/Vol] 5.3 10*3/uL 2.0-7.7 [facility] Anion gap in Serum or Plasma Ordered By: Eh Huddleston on 05-21-2025 Anion gap [Moles/Vol] 8 mmol/L 5-15 [facility] Automated lymphocyte count a s percentage of total leukocytesOrdered By: Eh Huddleston on 05-21-2025 Lymphocytes/100 WBC Auto (Unsp spec) 20.3 % 19-41 [facility] BUN/creatinine ratioOrdered By: Eh Huddleston on 05-21-2025 Urea nitrogen/Creatinine [Mass ratio] 37.6 mg/mg High 10-20 [facility] Basic Metabolic Profile (BMP )on 05-21-2025 BUN/CRE 37.6 RATIO High 10-20 [facility] Comment on above: Performed By: #### L 500.2500 ####[facility] [address] [place], [address] Calcium [Mass/Vol] 8.4 mg/dL Normal 7.6-11.0 [facility] Comment on above: Performed By: #### L 500.2500 ####[facility] [address] [place], [address] Chloride [Moles/Vol] 105 mmol/L Normal 98-108 [facility] Comment on above: Performed By: #### L 500.2500 ####[facility] [address] [place], [address] CO2 [Moles/Vol] 25.4 mmol/L Normal 21.0-32.0 [facility] Comment on above: Performed By: #### L 500.2500 ####[facility] [address] [place], [address] Creatinine [Mass/Vol] 0.64 mg/dL Low 0.70-1.20 [facility] Comment on above: Performed By: #### L 500.2500 ####[facility] [address] [place], [address] ECRCL 53.64 ml/min Normal 50-250 [facility] Comment on above: Performed By: #### L 500.2500 ####[facility] [address] [place], [address] GAP 8 Normal 5-15 [facility] Comment on above: Performed By: #### L 500.2500 ####[facility] [address] [place], [address] GFR/1.73 sq M.predicted among non-blacks MDRD (S/P/Bld) [Vol rate/Area] 86 mL/min/{1.73_m2} Normal >60 [facility] Comment on above: Result Comment: mL/m in/1.73m2 CKD-EPI Creatinine Equation (2020) Performed By: #### L 500.2500 ####[facility] [address] [place], [address] Glucose [Mass/Vol] 108 mg/dL High 70-99 [facility] Comment on above: Performed By: #### L 500.2500 ####[facility] [address] [place], [address] Potassium [Moles/Vol] 4.0 mmol/L Normal 3.3-5.1 [facility] Comment on above: Result Comment: Hemo lysis present, Results??could be affected.?? Performed By: #### L 500.2500 ####[facility] [address] [place], [address] Sodium [Moles/Vol] 138 mmol/L Normal 133-145 [facility] Comment on above: Performed By: #### L 500.2500 ####[facility] [address] [place], [address] Urea nitrogen [Mass/Vol] 24 mg/dL High 4-19 [facility] Comment on above: Performed By: #### L 500.2500 ####[facility] [address] [place], [address] Basophil percentageOrdered B y: Eh Huddleston on 05-21-2025 Basophils/100 WBC (Bld) 0.3 % 0-1 [facility] CBC W/Diff, Automatedon 07- Absolute Lymph 1.60 X10 3/uL Normal 0.83-4.51 [facility] Comment on above: Performed By: #### L 100.0100 ####[facility] [address] [place], [address] Absolute Neut 5.3 X10 3/uL Normal 2.0-7.7 [facility] Comment on above: Performed By: #### L 100.0100 ####[facility] [address] [place], [address] Basophils/100 WBC (Bld) 0.3 % Normal 0-1 [facility] Comment on above: Performed By: #### L 100.0100 ####[facility] [address] [place], [address] Eosinophils/100 WBC (Bld) 2.0 % Normal 0-5 [facility] Comment on above: Performed By: #### L 100.0100 ####[facility] [address] [place], [address] Erythrocyte distribution width (RBC) [Ratio] 15.2 % High 11.6-14.6 [facility] Comment on above: Performed By: #### L 100.0100 ####[facility] [address] [place], [address] Hematocrit (Bld) [Volume fraction] 25.0 % Low 37-47 [facility] Comment on above: Performed By: #### L 100.0100 ####[facility] [address] [place], [address] Hemoglobin (Bld) [Mass/Vol] 8.2 g/dL Low 12.0-15.0 [facility] Comment on above: Performed By: #### L 100.0100 ####[facility] [address] [place], [address] IG% 0.600 Normal 0.0-0.9 [facility] Comment on above: Result Comment: IG% - Immature Granulocytes (promyelocytes, myelocytes andmetamyelocytes) > 1% indicates that a LEFT SHIFT is Present. Performed By: #### L 100.0100 ####[facility] [address] [place], [address] Lymphocytes/100 WBC (Bld) 20.3 % Normal 19-41 [facility] Comment on above: Performed By: #### L 100.0100 ####[facility] [address] [place], [address] MCH (RBC) [Entitic mass] 31.1 pg Normal 27.0-32.0 [facility] Comment on above: Performed By: #### L 100.0100 ####[facility] [address] [place], [address] MCHC (RBC) [Mass/Vol] 32.8 g/dL Normal 32-36 [facility] Comment on above: Performed By: #### L 100.0100 ####[facility] [address] [place], [address] MCV (RBC) [Entitic vol] 94.7 fL Normal 81-99 [facility] Comment on above: Performed By: #### L 100.0100 ####[facility] [address] [place], [address] Monocytes/100 WBC (Bld) 10.0 % Normal 0-10 [facility] Comment on above: Performed By: #### L 100.0100 ####[facility] [address] [place], [address] Neutrophils/100 WBC (Bld) 66.8 % Normal 47-70 [facility] Comment on above: Performed By: #### L 100.0100 ####[facility] [address] [place], [address] Nucleated RBC (Bld) [#/Vol] 0 10*3/uL Normal 0-5 [facility] Comment on above: Performed By: #### L 100.0100 ####[facility] [address] [place], [address] Platelet mean volume (Bld) [Entitic vol] 9.4 fL Normal 6.2-12.0 [facility] Comment on above: Performed By: #### L 100.0100 ####[facility] [address] [place], [address] Platelets (Bld) [#/Vol] 290 10*3/uL Normal 150-450 [facility] Comment on above: Performed By: #### L 100.0100 ####[facility] [address] [place], [address] RBC (Bld) [#/Vol] 2.64 10*6/uL Low 4.2-5.4 [facility] Comment on above: Performed By: #### L 100.0100 ####[facility] [address] [place], [address] RDW SD 52.7 fl High 35.1-43.9 [facility] Comment on above: Performed By: #### L 100.0100 ####[facility] [address] [place], [address] WBC (Bld) [#/Vol] 7.9 10*3/uL Normal 4.4-11.0 [facility] Comment on above: Performed By: #### L 100.0100 ####[facility] [address] [place], [address] Carbon dioxide, total [Moles /volume] in Central venous bloodOrdered By: Eh Huddleston on 05-21-2025 CO2 [Moles/Vol] 25.4 mmol/L 21.0-32.0 [facility] Chloride assayOrdered By: Collin Huddleston on 05-21-2025 Chloride [Moles/Vol] 105 mmol/L 98-108 [facility] Eosinophil percentageOrdered By: Eh Huddleston 05-21-2025 Eosinophils/100 WBC (Bld) 2.0 % 0-5 [facility] Erythrocyte distribution wid th ratioOrdered By: Eh Huddleston 05-21-2025 Erythrocyte distribution width (RBC) [Ratio] 15.2 % High 11.6-14.6 [facility] Erythrocyte distribution wid th standard deviationOrdered By: Eh Huddleston on 05-21-2025 Erythrocyte distribution width (RBC) [Ratio] 52.7 fl High 35.1-43.9 [facility] Glomerular filtration rate ( GFR) estimation/1.73 sq m using serum, plasma, or whole bOrdered By: Eh Huddleston on 05-21-2025 GFR/1.73 sq M.predicted among non-blacks MDRD (S/P/Bld) [Vol rate/Area] 86 mL/min/{1.73_m2} >60 [facility] Comment on above: mL/min/1.73m2 CKD-EP I Creatinine Equation (2020) Immature granulocytes/100 WB C Auto (Bld)Ordered By: Eh Huddleston on 05-21-2025 Immature granulocytes/100 WBC (Bld) 0.600 % 0.0-0.9 [facility] Comment on above: IG% - Immature Granu locytes (promyelocytes, myelocytes and metamyelocytes) > 1% indicates that a LEFT SHIFT is Present. MCV (mean corpuscular volume ) determinationOrdered By: Eh Huddleston on 05-21-2025 MCV (RBC) [Entitic vol] 94.7 fL 81-99 [facility] Mean corpuscular hemoglobin (MCH) determinationOrdered By: Eh Huddleston on 05-21-2025 MCH (RBC) [Entitic mass] 31.1 pg 27.0-32.0 [facility] Mean corpuscular hemoglobin concentration (MCHC) determinationOrdered By: Eh Huddleston on 05-21-2025 MCHC (RBC) [Mass/Vol] 32.8 g/dL 32-36 [facility] Mean platelet volume determi nationOrdered By: Eh Huddleston on 05-21-2025 Platelet mean volume (Bld) [Entitic vol] 9.4 fL 6.2-12.0 [facility] Monocyte percentageOrdered B y: Eh Huddleston on 05-21-2025 Monocytes/100 WBC (Bld) 10.0 % 0-10 [facility] Neutrophil percentageOrdered By: Eh Huddleston on 05-21-2025 Neutrophils/100 WBC (Bld) 66.8 % 47-70 [facility] Nucleated red blood cell per centageOrdered By: Eh Huddleston on 05-21-2025 Nucleated RBC/100 WBC (Bld) [Ratio] 0 % 0-5 [facility] Platelet countOrdered By: Collin Huddleston on 05-21-2025 Platelets (Bld) [#/Vol] 290 10*3/uL 150-450 [facility] Potassium measurement (mass/ volume)Ordered By: Eh Huddleston on 05-21-2025 Potassium (Unsp spec) [Mass/Vol] 4.0 mmol/L 3.3-5.1 [facility] Comment on above: Hemolysis present, R esults could be affected. RBC Auto (Bld) [#/Vol]Ordere d By: Eh Huddleston on 05-21-2025 RBC (Bld) [#/Vol] 2.64 10*6/uL Low 4.2-5.4 [facility] Serum creatinine measurement (mass/volume)Ordered By: Eh Flaquito on 05-21-2025 Creatinine [Mass/Vol] 0.64 mg/dL Low 0.70-1.20 [facility] Serum glucose measurement (m ass/volume)Ordered By: Eh Flaquito on 05-21-2025 Glucose [Mass/Vol] 108 mg/dL High 70-99 [facility] Serum or plasma calcium susy urement (mass/volume)Ordered By: Eh Flaquito on 05-21-2025 Calcium [Mass/Vol] 8.4 mg/dL 7.6-11.0 [facility] Serum or plasma urea nitroge n measurement (mass/volume)Ordered By: Eh Flaquito on 05-21-2025 Urea nitrogen [Mass/Vol] 24 mg/dL High 4-19 [facility] Sodium levelOrdered By: Eh Flaquito on 05-21-2025 Sodium [Moles/Vol] 138 mmol/L 133-145 [facility] White blood cell (WBC) count Ordered By: Eh Huddleston 05-21-2025 WBC (Bld) [#/Vol] 7.9 10*3/uL 4.4-11.0 [facility] HH, Hemoglobin AND Hematocri ton 05-19-2025 Hematocrit (Bld) [Volume fraction] 25.4 % Low 37-[address] [place] [address] Comment on above: Performed By: #### L 100.0600 ####[facility] [address] [place], [place], [id number] Hemoglobin (Bld) [Mass/Vol] 8.1 g/dL Low 12.0-15.0 [facility] Comment on above: Performed By: #### L 100.0600 ####[facility] [address] [place], [place], [id number] HH, Hemoglobin AND Hematocri ton 05-18-2025 Hematocrit (Bld) [Volume fraction] 26.3 % Low 37-47 [facility] Comment on above: Performed By: #### L 100.0600 ####[facility] [address] [place], [address] Hemoglobin (Bld) [Mass/Vol] 8.4 g/dL Low 12.0-15.0 [facility] Comment on above: Performed By: #### L 100.0600 ####[facility] [address] [place], [address] Stool Occult Blood iFOBon STOB Negative Normal [facility] Comment on above: Performed By: #### M 100.7900 ####[facility] [address] [place], [address] Stool gastrointestinal hemog lobin detection by immunologic methodOrdered By: Eh Huddleston on 05-18-2025 Lower GI hemoglobin IA Ql (Stl) [facility] Culture, Blood (WB)on 2024 CUB No growth in 5 days. Normal [facility] Comment on above: Performed By: #### M 200.1000 ####[facility] [address] [place], [address] HH, Hemoglobin AND Hematocri ton 05-16-2025 Hematocrit (Bld) [Volume fraction] 26.2 % Low 37-47 [facility] Comment on above: Performed By: #### L 100.0600 ####[facility] [address] [place], [address] Hemoglobin (Bld) [Mass/Vol] 8.5 g/dL Low 12.0-15.0 [facility] Comment on above: Performed By: #### L 100.0600 ####[facility] [address] [place], [address] Basic Metabolic Profile (BMP )on 05-15-2025 BUN/CRE 37.4 RATIO High 10-20 [facility] Comment on above: Performed By: #### L 500.2500, L100.0100 ####[facility] [address] [place], [address] Calcium [Mass/Vol] 8.3 mg/dL Normal 7.6-11.0 [facility] Comment on above: Performed By: #### L 500.2500, L100.0100 ####[facility] [address] [place], [address] Chloride [Moles/Vol] 105 mmol/L Normal 98-108 [facility] Comment on above: Performed By: #### L 500.2500, L100.0100 ####[facility] [address] [place], [address] CO2 [Moles/Vol] 22.8 mmol/L Normal 21.0-32.0 [facility] Comment on above: Performed By: #### L 500.2500, L100.0100 ####[facility] [address] [place], [address] Creatinine [Mass/Vol] 0.69 mg/dL Low 0.70-1.20 [facility] Comment on above: Performed By: #### L 500.2500, L100.0100 ####[facility] [address] [place], [address] ECRCL 53.49 ml/min Normal 50-250 [facility] Comment on above: Performed By: #### L 500.2500, L100.0100 ####[facility] [address] [place], [address] GAP 8 Normal 5-15 [facility] Comment on above: Performed By: #### L 500.2500, L100.0100 ####[facility] [address] [place], [address] GFR/1.73 sq M.predicted among non-blacks MDRD (S/P/Bld) [Vol rate/Area] 84 mL/min/{1.73_m2} Normal >60 [facility] Comment on above: Result Comment: mL/m in/1.73m2 CKD-EPI Creatinine Equation (2020) Performed By: #### L 500.2500, L100.0100 ####[facility] [address] [place], [address] Glucose [Mass/Vol] 116 mg/dL High 70-99 [facility] Comment on above: Performed By: #### L 500.2500, L100.0100 ####[facility] [address] [place], [address] Potassium [Moles/Vol] 4.1 mmol/L Normal 3.3-5.1 [facility] Comment on above: Performed By: #### L 500.2500, L100.0100 ####[facility] [address] [place], [address] Sodium [Moles/Vol] 136 mmol/L Normal 133-145 [facility] Comment on above: Performed By: #### L 500.2500, L100.0100 ####[facility] [address] [place], [address] Urea nitrogen [Mass/Vol] 26 mg/dL High 4-19 [facility] Comment on above: Performed By: #### L 500.2500, L100.0100 ####[facility] [address] [place], [address] CBC W/Diff, Automatedon 07-1 Absolute Lymph 1.31 X10 3/uL Normal 0.83-4.51 [facility] Comment on above: Performed By: #### L 500.2500, L100.0100 ####[facility] [address] [place], [address] Absolute Neut 4.4 X10 3/uL Normal 2.0-7.7 [facility] Comment on above: Performed By: #### L 500.2500, L100.0100 ####[facility] [address] [place], [address] Basophils/100 WBC (Bld) 0.3 % Normal 0-1 [facility] Comment on above: Performed By: #### L 500.2500, L100.0100 ####[facility] [address] [place], [address] Eosinophils/100 WBC (Bld) 2.8 % Normal 0-5 [facility] Comment on above: Performed By: #### L 500.2500, L100.0100 ####[facility] [address] [place], [address] Erythrocyte distribution width (RBC) [Ratio] 14.6 % Normal 11.6-14.6 [facility] Comment on above: Performed By: #### L 500.2500, L100.0100 ####[facility] [address] [place], [address] Hematocrit (Bld) [Volume fraction] 25.4 % Low 37-47 [facility] Comment on above: Performed By: #### L 500.2500, L100.0100 ####[facility] [address] [place], [address] Hemoglobin (Bld) [Mass/Vol] 8.4 g/dL Low 12.0-15.0 [facility] Comment on above: Performed By: #### L 500.2500, L100.0100 ####[facility] [address] [place], [address] IG% 1.900 High 0.0-0.9 [facility] Comment on above: Result Comment: IG% - Immature Granulocytes (promyelocytes, myelocytes andmetamyelocytes) > 1% indicates that a LEFT SHIFT is Present. Performed By: #### L 500.2500, L100.0100 ####[facility] [address] [place], [address] Lymphocytes/100 WBC (Bld) 19.4 % Normal 19-41 [facility] Comment on above: Performed By: #### L 500.2500, L100.0100 ####[facility] [address] [place], [address] MCH (RBC) [Entitic mass] 30.0 pg Normal 27.0-32.0 [facility] Comment on above: Performed By: #### L 500.2500, L100.0100 ####[facility] [address] [place], [address] MCHC (RBC) [Mass/Vol] 33.1 g/dL Normal 32-36 [facility] Comment on above: Performed By: #### L 500.2500, L100.0100 ####[facility] [address] [place], [address] MCV (RBC) [Entitic vol] 90.7 fL Normal 81-99 [facility] Comment on above: Performed By: #### L 500.2500, L100.0100 ####[facility] [address] [place], [address] Monocytes/100 WBC (Bld) 10.4 % High 0-10 [facility] Comment on above: Performed By: #### L 500.2500, L100.0100 ####[facility] [address] [place], [address] Neutrophils/100 WBC (Bld) 65.2 % Normal 47-70 [facility] Comment on above: Performed By: #### L 500.2500, L100.0100 ####[facility] [address] [place], [address] Nucleated RBC (Bld) [#/Vol] 0 10*3/uL Normal 0-5 [facility] Comment on above: Performed By: #### L 500.2500, L100.0100 ####[facility] [address] [place], [address] Platelet mean volume (Bld) [Entitic vol] 9.5 fL Normal 6.2-12.0 [facility] Comment on above: Performed By: #### L 500.2500, L100.0100 ####[facility] [address] [place], [address] Platelets (Bld) [#/Vol] 182 10*3/uL Normal 150-450 [facility] Comment on above: Performed By: #### L 500.2500, L100.0100 ####[facility] [address] [place], [address] RBC (Bld) [#/Vol] 2.80 10*6/uL Low 4.2-5.4 [facility] Comment on above: Performed By: #### L 500.2500, L100.0100 ####[facility] [address] [place], [address] RDW SD 48.5 fl High 35.1-43.9 [facility] Comment on above: Performed By: #### L 500.2500, L100.0100 ####[facility] [address] [place], [address] WBC (Bld) [#/Vol] 6.8 10*3/uL Normal 4.4-11.0 [facility] Comment on above: Performed By: #### L 500.2500, L100.0100 ####[facility] [address] [place], [address] Stool Occult Blood iFOBon STOB Normal [facility] Comment on above: Performed By: #### M 100.7900 ####[facility] [address] [place], [address] Stool gastrointestinal hemog lobin detection by immunologic methodOrdered By: Eh Huddleston on 05-15-2025 Lower GI hemoglobin IA Ql (Stl) [facility] Absolute lymphocyte countOrd ered By: Manny uMrdock on 05-14-2025 Lymphocytes Auto (Unsp spec) [#/Vol] 1.36 10*3/uL 0.83-4.51 [facility] Absolute neutrophil countOrd ered By: Manny Murdock on 05-14-2025 Neutrophils (Bld) [#/Vol] 5.1 10*3/uL 2.0-7.7 [facility] Automated blood erythrocyte countOrdered By: Manny Murdock on 05-14-2025 RBC (Bld) [#/Vol] 3.11 10*6/uL Low 4.2-5.4 [facility] Comment on above: Performed By: #### L 100.0100 ####[facility] [address] [place], [place], [id number] Automated blood hematocrit ( percentage)Ordered By: Manny Murdock on 05-14-2025 Hematocrit (Bld) [Volume fraction] 28.0 % Low 37-47 [facility] Comment on above: Performed By: #### L 100.0100 ####[facility] [address] [place], [place], [id number] Automated lymphocyte count a s percentage of total leukocytesOrdered By: Manny Murdock on 05-14-2025 Lymphocytes/100 WBC Auto (Unsp spec) 18.1 % Low 19-41 [facility] Basophil percentageOrdered B y: Manny Murdock on 05-14-2025 Basophils/100 WBC (Bld) 0.3 % Normal 0-1 [facility] Comment on above: Performed By: #### L 100.0100 ####[facility] [address] [place], [place], [id number] CBC W/Diff, Automatedon 04-27 Absolute Lymph 1.36 X10 3/uL Normal 0.83-4.51 [facility] Comment on above: Performed By: #### L 100.0100 ####[facility] [address] [place], [address] Absolute Neut 5.1 X10 3/uL Normal 2.0-7.7 [facility] Comment on above: Performed By: #### L 100.0100 ####[facility] [address] [place], [address] IG% 0.900 Normal 0.0-0.9 [facility] Comment on above: Result Comment: IG% - Immature Granulocytes (promyelocytes, myelocytes andmetamyelocytes) > 1% indicates that a LEFT SHIFT is Present. Performed By: #### L 100.0100 ####[facility] [address] [place], [address] Lymphocytes/100 WBC (Bld) 18.1 % Low 19-41 [facility] Comment on above: Performed By: #### L 100.0100 ####[facility] [address] [place], [address] Nucleated RBC (Bld) [#/Vol] 0 10*3/uL Normal 0-5 [facility] Comment on above: Performed By: #### L 100.0100 ####[facility] [address] [place], [address] RDW SD 47.7 fl High 35.1-43.9 [facility] Comment on above: Performed By: #### L 100.0100 ####[facility] [address] [place], [address] Eosinophil percentageOrdered By: Manny Murdock on 05-14-2025 Eosinophils/100 WBC (Bld) 2.9 % Normal 0-5 [facility] Comment on above: Performed By: #### L 100.0100 ####[facility] [address] [place], [address] Erythrocyte distribution wid th ratioOrdered By: Manny Murdock on 05-14-2025 Erythrocyte distribution width (RBC) [Ratio] 14.6 % Normal 11.6-14.6 [facility] Comment on above: Performed By: #### L 100.0100 ####[facility] [address] [place], [place], [id number]) Erythrocyte distribution wid th standard deviationOrdered By: Manny Murdock on 05-14-2025 Erythrocyte distribution width (RBC) [Ratio] 47.7 fl High 35.1-43.9 [facility] Hemoglobin measurementOrdere d By: Manny Murdock on 05-14-2025 Hemoglobin (Bld) [Mass/Vol] 9.5 g/dL Low 12.0-15.0 [facility] Comment on above: Performed By: #### L 100.0100 ####[facility] [address] [place], [place], [id number] Immature granulocytes/100 WB C Auto (Bld)Ordered By: Manny Murdock on 05-14-2025 Immature granulocytes/100 WBC (Bld) 0.900 % 0.0-0.9 [facility] Comment on above: IG% - Immature Granu locytes (promyelocytes, myelocytes and metamyelocytes) > 1% indicates that a LEFT SHIFT is Present. MCV (mean corpuscular volume ) determinationOrdered By: Manny Murdock on 05-14-2025 MCV (RBC) [Entitic vol] 90.0 fL Normal 81-99 [facility] Comment on above: Performed By: #### L 100.0100 ####[facility] [address] [place], [place], [phone] Mean corpuscular hemoglobin (MCH) determinationOrdered By: Manny Murdock on 05-14-2025 MCH (RBC) [Entitic mass] 30.5 pg Normal 27.0-32.0 [facility] Comment on above: Performed By: #### L 100.0100 ####[facility] [address] [place], [place], [phone] Mean corpuscular hemoglobin concentration (MCHC) determinationOrdered By: Manny Murdock on 05-14-2025 MCHC (RBC) [Mass/Vol] 33.9 g/dL Normal 32-36 [facility] Comment on above: Performed By: #### L 100.0100 ####[facility] [address] [place], [address] Mean platelet volume determi nationOrdered By: Manny Murdock on 05-14-2025 Platelet mean volume (Bld) [Entitic vol] 9.7 fL Normal 6.2-12.0 [facility] Comment on above: Performed By: #### L 100.0100 ####[facility] [address] [place], [address] Monocyte percentageOrdered B y: Manny Murdock on 05-14-2025 Monocytes/100 WBC (Bld) 10.3 % High 0-10 [facility] Comment on above: Performed By: #### L 100.0100 ####[facility] [address] [place], [address] Neutrophil percentageOrdered By: Manny Murdock on 05-14-2025 Neutrophils/100 WBC (Bld) 67.5 % Normal 47-70 [facility] Comment on above: Performed By: #### L 100.0100 ####[facility] [address] [place], [address] Nucleated red blood cell per centageOrdered By: Manny Murdock on 05-14-2025 Nucleated RBC/100 WBC (Bld) [Ratio] 0 % 0-5 [facility] Platelet countOrdered By: Jessica Murdock on 05-14-2025 Platelets (Bld) [#/Vol] 186 10*3/uL Normal 150-450 [facility] Comment on above: Performed By: #### L 100.0100 ####[facility] [address] [place], [address] White blood cell (WBC) count Ordered By: Manny Murdock on 05-14-2025 WBC (Bld) [#/Vol] 7.5 10*3/uL Normal 4.4-11.0 [facility] Comment on above: Performed By: #### L 100.0100 ####[facility] [address] [place], [address] Bedside Glucoseon 05-13-2025 FINGERSTICK GLU 141 mg/dL High 74-106 [facility] Comment on above: Result Comment: CHRISTIAN GEMENT OF PATIENT CARE PER NURSING PROTOCOL Performed By: #### L 501.080 ####[facility] [address] [place], [address] FINGERSTICK GLU 131 mg/dL High -106 [facility] Comment on above: Result Comment: CHRISTIAN GEMENT OF PATIENT CARE PER NURSING PROTOCOL Performed By: #### L 501.080 ####[facility] [address] [place], [address] FINGERSTICK GLU 119 mg/dL High -106 [facility] Comment on above: Result Comment: CHRISTIAN GEMENT OF PATIENT CARE PER NURSING PROTOCOL Performed By: #### L 501.080 ####[facility] [address] [place], [address] FINGERSTICK GLU 124 mg/dL High -106 [facility] Comment on above: Result Comment: CHRISTIAN GEMENT OF PATIENT CARE PER NURSING PROTOCOL Performed By: #### L 501.080 ####[facility] [address] [place], [address] CBC W/Diff, Automatedon - Absolute Lymph 1.16 X10 3/uL Normal 0.83-4.51 [facility] Comment on above: Performed By: #### L 100.0100 ####[facility] [address] [place], [address] Absolute Neut 5.6 X10 3/uL Normal 2.0-7.7 [facility] Comment on above: Performed By: #### L 100.0100 ####[facility] [address] [place], [address] Basophils/100 WBC (Bld) 0.3 % Normal 0-1 [facility] Comment on above: Performed By: #### L 100.0100 ####[facility] [address] [place], [address] Eosinophils/100 WBC (Bld) 2.3 % Normal 0-5 [facility] Comment on above: Performed By: #### L 100.0100 ####[facility] [address] [place], [address] Erythrocyte distribution width (RBC) [Ratio] 14.8 % High 11.6-14.6 [facility] Comment on above: Performed By: #### L 100.0100 ####[facility] [address] [place], [address] Hematocrit (Bld) [Volume fraction] 26.3 % Low 37-47 [facility] [facility] Comment on above: Performed By: #### L 100.0100 ####[facility] [address] [place], [address] Hemoglobin (Bld) [Mass/Vol] 8.8 g/dL Low 12.0-15.0 [facility] Comment on above: Performed By: #### L 100.0100 ####[facility] [address] [place], [address] IG% 0.600 Normal 0.0-0.9 [facility] Comment on above: Result Comment: IG% - Immature Granulocytes (promyelocytes, myelocytes andmetamyelocytes) > 1% indicates that a LEFT SHIFT is Present. Performed By: #### L 100.0100 ####[facility] [address] [place], [address] Lymphocytes/100 WBC (Bld) 14.8 % Low 19-41 [facility] Comment on above: Performed By: #### L 100.0100 ####[facility] [address] [place], [address] MCH (RBC) [Entitic mass] 30.2 pg Normal 27.0-32.0 [facility] Comment on above: Performed By: #### L 100.0100 ####[facility] [address] [place], [address] MCHC (RBC) [Mass/Vol] 33.5 g/dL Normal 32-36 [facility] Comment on above: Performed By: #### L 100.0100 ####[facility] [address] [place], [address] MCV (RBC) [Entitic vol] 90.4 fL Normal 81-99 [facility] Comment on above: Performed By: #### L 100.0100 ####[facility] [address] [place], [address] Monocytes/100 WBC (Bld) 11.2 % High 0-10 [facility] Comment on above: Performed By: #### L 100.0100 ####[facility] [address] [place], [address] Neutrophils/100 WBC (Bld) 70.8 % High 47-70 [facility] Comment on above: Performed By: #### L 100.0100 ####[facility] [address] [place], [address] Nucleated RBC (Bld) [#/Vol] 0 10*3/uL Normal 0-5 [facility] Comment on above: Performed By: #### L 100.0100 ####[facility] [address] [place], [address] Platelet mean volume (Bld) [Entitic vol] 9.6 fL Normal 6.2-12.0 [facility] Comment on above: Performed By: #### L 100.0100 ####[facility] [address] [place], [address] Platelets (Bld) [#/Vol] 149 10*3/uL Low 150-450 [facility] Comment on above: Performed By: #### L 100.0100 ####[facility] [address] [place], [address] RBC (Bld) [#/Vol] 2.91 10*6/uL Low 4.2-5.4 [facility] Comment on above: Performed By: #### L 100.0100 ####[facility] [address] [place], [address] RDW SD 48.9 fl High 35.1-43.9 [facility] Comment on above: Performed By: #### L 100.0100 ####[facility] [address] [place], [address] WBC (Bld) [#/Vol] 7.9 10*3/uL Normal 4.4-11.0 [facility] Comment on above: Performed By: #### L 100.0100 ####[facility] [address] [place], [address] Calculated very low density lipoprotein (VLDL) cholesterol measurementOrdered By: Manny Murdock on 05-13-2025 Calculated very low density lipoprotein (VLDL) cholesterol measurement 27 mg/dL 5-40 [facility] Electrocardiogram reportOrde red By: Azul Pratt on 05-13-2025 EKG study [facility] [address] [place] [address] 12 Lead EKG 05/08/25 0505 MR#: [id number] Acct: [id number] Name: GOGO WARE Heidi p #:[id number] : 1940 85 From: Azul sauceda MD Attending Dr: Dr. Manny Murdock MD Status: ADM IN Ordering Dr: Jim Jones MD Date: 04/27 12/22 Location: [facility] Sex: F C Admitted: 05/07/25 Test Reason : Pre-Op Blood Pressure : */* mmHG Vent. Rate : 77 BPM Atrial Rate : 77 BPM P-R Int : 200 ms QRS Dur : 94 ms QT Int : 414 ms P-R-T Axes : 80 42 86 degrees QTcB Int : 468 ms Normal sinus rhythm Normal ECG Confirmed by Azul Pratt ([id number]), telegraph editor SHERMAN AUGUST ([id number]) on 05/13/2025 8:35:20 AM Referred By: Karen Confirmed By: Azul Pratt 05/13/25 0835 Date _ Auzl Pratt MD CC: Dr. Jim Jones MD; Dr. Manny Murdock MD; Dr. Eh Huddleston MD ~ Signed [facility] Other Phone: Glucose measurement at [facility] deOrdered By: Manny Murdock on 05-13-2025 Glucose [Mass/Vol] 141 mg/dL High 74-106 [facility] Comment on above: MANAGEMENT OF PATIEN T CARE PER NURSING PROTOCOL Hemoglobin A1con 05-13-2025 HbA1c (Bld) [Mass fraction] 5.5 % Normal <=5.6 [facility] Comment on above: Result Comment: Norm al < 5.7 % Prediabetic 5.7 - 6.4 % Diabetic >or= 6.5 % Please note range changes. Performed By: #### L 501.9985 ####[facility] [address] [place], [place], [address] Hemoglobin A1c percentageOrd ered By: Manny Murdock on 05-13-2025 HbA1c (Bld) [Mass fraction] 5.5 % <5.7 [facility] Comment on above: Normal < 5.7 % Predi abetic 5.7 - 6.4 % Diabetic >or= 6.5 % Please note range changes. LDL calc ser/plasOrdered By: Manny Murdock on 05-13-2025 Cholesterol in LDL [Mass/Vol] 61 mg/dL [facility] Comment on above: Xxqkvxreff=424-840 m g/dL & Higher Whyl=063 mg/dL or greater Lipid Profileon 05-13-2025 CHOL:HDL 3.58 Normal [facility] Comment on above: Order Comment: Comme nts: NPO at [place] prior to lipid panel Performed By: #### L 501.9520, L500.4100 ####[facility] [address] [place], [address] Cholesterol [Mass/Vol] 122 mg/dL Normal <=200 [facility] Comment on above: Order Comment: Comme nts: NPO at [place] prior to lipid panel Result Comment: Chol esterol level, Desirable <200 mg/dLBorderline high cholesterol 200-239 mg/dLHigh cholesterol >=240 mg/dLRecommendations of the NCEP Adult Treatment Panel for thefollowing risk-cutoff thresholds for the [place] Americanpulation. Performed By: #### L 501.9520, L500.4100 ####[facility] [address] [place], [address] Cholesterol in HDL [Mass/Vol] 34 mg/dL Low [facility] Comment on above: Order Comment: Comme nts: NPO at [place] prior to lipid panel Result Comment: Elaine onal Cholesterol Education Program (NCEP) guidelines:<40 mg/dL: Low HDL-cholesterol (major risk factor for CHD)>= 60 mg/dL: High HDL-cholesterol (negative risk factor forCHD)HDL-cholesterol is affected by a number of factors, e.g.smoking, exercise, hormones, sex and age. Performed By: #### L 501.9520, L500.4100 ####[facility] [address] [place], [address] Cholesterol in LDL [Mass/Vol] 61 mg/dL Normal [facility] Comment on above: Order Comment: Comme nts: NPO at [place] prior to lipid panel Result Comment: Bord drhqnt=623-825 mg/dL Higher Iduv=874 mg/dL or greater Performed By: #### L 501.9520, L500.4100 ####[facility] [address] [place], [address] Cholesterol in VLDL [Mass/Vol] 27 mg/dL Normal 5-40 [facility] Comment on above: Order Comment: Comme nts: NPO at [place] prior to lipid panel Performed By: #### L 501.9520, L500.4100 ####[facility] [address] [place], [address] Triglyceride [Mass/Vol] 133 mg/dL Normal [facility] Comment on above: Order Comment: Comme nts: NPO at [place] prior to lipid panel Result Comment: The drugs N-Acetylcysteine and Metamizole may falselydepress this assay.Normal range: <150 mg/dLBorderline High: 150-199 mg/dLHigh: 200-499 mg/dLVery High: >500 mg/dL Performed By: #### L 501.9520, L500.4100 ####[facility] [address] [place], [address] Screening total cholesterol/ high density lipoprotein (HDL) cholesterol ratioOrdered By: Manny Murdock on 05-13-2025 Cholesterol.total/Cho lesterol in HDL [Mass ratio] 3.58 {ratio} [facility] Serum or plasma cholesterol in HDL measurement (mass/volume)Ordered By: Manny Murdock on 05-13-2025 Cholesterol in HDL [Mass/Vol] 34 mg/dL Low >40 [facility] Comment on above: National Cholesterol Education Program (NCEP) guidelines:<40 mg/dL: Low HDL-cholesterol (major risk factor for CHD)>= 60 mg/dL: High HDL-cholesterol (negative risk factor for CHD)HDL-cholesterol is affected by a number of factors, e.g. smoking, exercise, hormones, sex and age. Serum or plasma cholesterol measurement (mass/volume)Ordered By: Manny Murdock on 05-13-2025 Cholesterol [Mass/Vol] 122 mg/dL <201 [facility] Comment on above: Cholesterol level, D esirable <200 mg/dLBorderline high cholesterol 200-239 mg/dLHigh cholesterol >=240 mg/dLRecommendations of the NCEP Adult Treatment Panel for the following risk-cutoff thresholds for the [place] Malaysian population. TSH DL <= 0.005 mIU/L QnOrde red By: Manny Murdock on 05-13-2025 TSH Qn 2.480 uIU/mL 0.300-4.20 0 [facility] Thyroid Stim Hormone (TSH)on 05-13-2025 TSH 2.480 uIU/mL Normal 0.300-4.20 0 [facility] Comment on above: Order Comment: Comme nts: NPO at [place] prior to lipid panel Performed By: #### L 501.9520, L500.4100 ####[facility] [address] [place], [place], [address] Triglycerides measurementOrd ered By: Manny Murdock on 05-13-2025 Triglyceride [Mass/Vol] 133 mg/dL <199 [facility] Comment on above: The drugs N-Acetylcy steine and Metamizole may falsely depress this assay. Normal range: <150 mg/dLBorderline High: 150-199 mg/dLHigh: 200-499 mg/dLVery High: >500 mg/dL Anion gap in Serum or Plasma Ordered By: Manny Murdock on 05-12-2025 Anion gap [Moles/Vol] 8 mmol/L 5-15 [facility] BUN/creatinine ratioOrdered By: Manny Murdock on 05-12-2025 Urea nitrogen/Creatinine [Mass ratio] 34.0 mg/mg High - [facility] Basic Metabolic Profile (BMP )on 05-12-2025 BUN/CRE 34.0 RATIO High 08-16 [facility] Comment on above: Performed By: #### L 100.0100, L500.2500 ####[facility] [address] [place], [place], [address] Calcium [Mass/Vol] 7.8 mg/dL Normal 7.6-11.0 [facility] Comment on above: Performed By: #### L 100.0100, L500.2500 ####[facility] [address] [place], [address] Chloride [Moles/Vol] 109 mmol/L High 98-108 [facility] Comment on above: Performed By: #### L 100.0100, L500.2500 ####[facility] [address] [place], [address] CO2 [Moles/Vol] 19.5 mmol/L Low 21.0-32.0 [facility] Comment on above: Performed By: #### L 100.0100, L500.2500 ####[facility] [address] [place], [address] Creatinine [Mass/Vol] 0.68 mg/dL Low 0.70-1.20 [facility] Comment on above: Performed By: #### L 100.0100, L500.2500 ####[facility] [address] [place], [address] ECRCL 51.35 ml/min Normal 50-250 [facility] Comment on above: Performed By: #### L 100.0100, L500.2500 ####[facility] [address] [place], [address] GAP 8 Normal 5-15 [facility] Comment on above: Performed By: #### L 100.0100, L500.2500 ####[facility] [address] [place], [address] GFR/1.73 sq M.predicted among non-blacks MDRD (S/P/Bld) [Vol rate/Area] 85 mL/min/{1.73_m2} Normal >60 [facility] Comment on above: Result Comment: mL/m in/1.73m2 CKD-EPI Creatinine Equation (2020) Performed By: #### L 100.0100, L500.2500 ####[facility] [address] [place], [address] Glucose [Mass/Vol] 168 mg/dL High 70-99 [facility] Comment on above: Performed By: #### L 100.0100, L500.2500 ####[facility] [address] [place], [address] Potassium [Moles/Vol] 4.0 mmol/L Normal 3.3-5.1 [facility] Comment on above: Performed By: #### L 100.0100, L500.2500 ####[facility] [address] [place], [address] Sodium [Moles/Vol] 137 mmol/L Normal 133-145 [facility] Comment on above: Performed By: #### L 100.0100, L500.2500 ####[facility] [address] [place], [address] Urea nitrogen [Mass/Vol] 23 mg/dL High 4-19 [facility] Comment on above: Performed By: #### L 100.0100, L500.2500 ####[facility] [address] [place], [address] CBC W/Diff, Automatedon - Absolute Lymph 0.78 X10 3/uL Low 0.83-4.51 [facility] Comment on above: Performed By: #### L 100.0100, L500.2500 ####[facility] [address] [place], [address] Absolute Neut 5.5 X10 3/uL Normal 2.0-7.7 [facility] Comment on above: Performed By: #### L 100.0100, L500.2500 ####[facility] [address] [place], [address] Basophils/100 WBC (Bld) 0.1 % Normal 0-1 [facility] Comment on above: Performed By: #### L 100.0100, L500.2500 ####[facility] [address] [place], [address] Eosinophils/100 WBC (Bld) 1.2 % Normal 0-5 [facility] Comment on above: Performed By: #### L 100.0100, L500.2500 ####[facility] [address] [place], [address] Erythrocyte distribution width (RBC) [Ratio] 14.8 % High 11.6-14.6 [facility] Comment on above: Performed By: #### L 100.0100, L500.2500 ####[facility] [address] [place], [address] Hematocrit (Bld) [Volume fraction] 24.6 % Low 37-47 [facility] Comment on above: Performed By: #### L 100.0100, L500.2500 ####[facility] [address] [place], [address] Hemoglobin (Bld) [Mass/Vol] 8.3 g/dL Low 12.0-15.0 [facility] Comment on above: Performed By: #### L 100.0100, L500.2500 ####[facility] [address] [place], [address] IG% 0.700 Normal 0.0-0.9 [facility] Comment on above: Result Comment: IG% - Immature Granulocytes (promyelocytes, myelocytes andmetamyelocytes) > 1% indicates that a LEFT SHIFT is Present. Performed By: #### L 100.0100, L500.2500 ####[facility] [address] [place], [address] Lymphocytes/100 WBC (Bld) 10.7 % Low 19-41 [facility] Comment on above: Performed By: #### L 100.0100, L500.2500 ####[facility] [address] [place], [address] MCH (RBC) [Entitic mass] 30.3 pg Normal 27.0-32.0 [facility] Comment on above: Performed By: #### L 100.0100, L500.2500 ####[facility] [address] [place], [address] MCHC (RBC) [Mass/Vol] 33.7 g/dL Normal 32-36 [facility] Comment on above: Performed By: #### L 100.0100, L500.2500 ####[facility] [address] [place], [address] MCV (RBC) [Entitic vol] 89.8 fL Normal 81-99 [facility] Comment on above: Performed By: #### L 100.0100, L500.2500 ####[facility] [address] [place], [address] Monocytes/100 WBC (Bld) 10.9 % High 0-10 [facility] Comment on above: Performed By: #### L 100.0100, L500.2500 ####[facility] [address] [place], [address] Neutrophils/100 WBC (Bld) 76.4 % High 47-70 [facility] Comment on above: Performed By: #### L 100.0100, L500.2500 ####[facility] [address] [place], [address] Nucleated RBC (Bld) [#/Vol] 0 10*3/uL Normal 0-5 [facility] Comment on above: Performed By: #### L 100.0100, L500.2500 ####[facility] [address] [place], [address] Platelet mean volume (Bld) [Entitic vol] 10.1 fL Normal 6.2-12.0 [facility] Comment on above: Performed By: #### L 100.0100, L500.2500 ####[facility] [address] [place], [address] Platelets (Bld) [#/Vol] 129 10*3/uL Low 150-450 [facility] Comment on above: Performed By: #### L 100.0100, L500.2500 ####[facility] [address] [place], [address] RBC (Bld) [#/Vol] 2.74 10*6/uL Low 4.2-5.4 [facility] Comment on above: Performed By: #### L 100.0100, L500.2500 ####[facility] [address] [place], [address] RDW SD 48.1 fl High 35.1-43.9 [facility] Comment on above: Performed By: #### L 100.0100, L500.2500 ####[facility] [address] [place], [address] WBC (Bld) [#/Vol] 7.3 10*3/uL Normal 4.4-11.0 [facility] Comment on above: Performed By: #### L 100.0100, L500.2500 ####[facility] [address] [place], [address] Carbon dioxide, total [Moles /volume] in Central venous bloodOrdered By: Manny Murdock on 05-12-2025 CO2 [Moles/Vol] 19.5 mmol/L Low 21.0-32.0 [facility] Chloride assayOrdered By: Jessica Murdock on 05-12-2025 Chloride [Moles/Vol] 109 mmol/L High 98-108 [facility] Echocardiogram study reportO rdered By: Tracy Kaur on 05-12-2025 Study report [facility] [address] [place] [address] Echo Complete W/ Contrast 05/11/25 2219 MR#: [id number] Acct: [id number] Name: GOGO WARE p #:[id number] : 1940 85 From: Tracy Kaur MD Attending Dr: Dr. Manny Murdock MD Status: ADM IN Ordering Dr: Sourav Casiano DO Date: 05/11/25 Location: [facility] Sex: F C Admitted: 05/07/25 Reason For [...] Date _ Tracy Kaur MD CC: Dr. Soruav Casiano DO; Dr. Manny Murdock MD; Dr. Eh Huddleston MD ~ Date Dictated: 05/11/252218 Date Transcribed: 05/12/251225 Finisher Brush: Signed [facility] Work Phone: Electrocardiogram reportOrde red By: Azul Pratt on 05-12-2025 EKG study [facility] [address] [place] [address] 12 Lead EKG 05/10/25 1638 MR#: [id number] Acct: [id number] Name: GOGO WARE p #:[id number] : 1940 85 From: Azul sauceda MD Attending Dr: Dr. Manny Murdock MD Status: ADM IN Ordering Dr: Sourav Casiano DO Date: 05/10/25 Location: [facility] Sex: F C Admitted: 05/07/25 Test [...] in Lateral leads Confirmed by Azul Pratt ([id number]), telegraph editor SHERMAN AUGUST ([id number]) on 05/12/2025 11:36:28 AM Referred By: Confirmed By: Azul Pratt 05/12/25 1136 Date _ Azul Pratt MD CC: Dr. Sourav Casiano, DO; Dr. Manny Murdock MD; Dr. Eh Huddleston MD ~ Signed [facility] Other Phone: Glomerular filtration rate ( GFR) estimation/1.73 sq m using serum, plasma, or whole bOrdered By: Manny Murdock on 05-12-2025 GFR/1.73 sq M.predicted among non-blacks MDRD (S/P/Bld) [Vol rate/Area] 85 mL/min/{1.73_m2} >60 [facility] Comment on above: mL/min/1.73m2 CKD-EP I Creatinine Equation (2020) MR/CON.PCM.NEon 05-12-2025 MR/CON.PCM.NE Normal [facility] Potassium measurement (mass/ volume)Ordered By: Manny Murdock on 05-12-2025 Potassium (Unsp spec) [Mass/Vol] 4.0 mmol/L 3.3-5.1 [facility] Serum creatinine measurement (mass/volume)Ordered By: Manny Murdock on 05-12-2025 Creatinine [Mass/Vol] 0.68 mg/dL Low 0.70-1.20 [facility] Serum glucose measurement (m ass/volume)Ordered By: Manny Murdock on 05-12-2025 Glucose [Mass/Vol] 168 mg/dL High 70-99 [facility] Serum or plasma calcium susy urement (mass/volume)Ordered By: Manny Murdock on 05-12-2025 Calcium [Mass/Vol] 7.8 mg/dL 7.6-11.0 [facility] Serum or plasma urea nitroge n measurement (mass/volume)Ordered By: Manny Murdock on 05-12-2025 Urea nitrogen [Mass/Vol] 23 mg/dL High 4-19 [facility] Sodium levelOrdered By: Tracie Murdock on 05-12-2025 Sodium [Moles/Vol] 137 mmol/L 133-145 [facility] BRCon 05-11-2025 RC Normal [facility] Comment on above: Result Comment: [id number] ABP RC TRANSFUSED 05/11/25 [id number] ABN RC TRANSFUSED 05/11/25 1721 Performed By: #### B TS, [facility] ####[facility] [address] [place], [address] Bilirubin Test strip Ql (U)O rdered By: Sourav Casiano on 05-11-2025 Bilirubin Ql (U) Negative Negative [facility] Brain without Contraston Brain without Contrast Normal [facility] CBC W/Diff, Automatedon 04-27 Absolute Lymph 0.81 X10 3/uL Low 0.83-4.51 [facility] Comment on above: Performed By: #### L 100.0100 ####[facility] [address] [place], [address] Absolute Neut 8.4 X10 3/uL High 2.0-7.7 [facility] Comment on above: Performed By: #### L 100.0100 ####[facility] [address] [place], [address] Basophils/100 WBC (Bld) 0.1 % Normal 0-1 [facility] Comment on above: Performed By: #### L 100.0100 ####[facility] [address] [place], [address] Eosinophils/100 WBC (Bld) 0.5 % Normal 0-5 [facility] Comment on above: Performed By: #### L 100.0100 ####[facility] [address] [place], [address] Erythrocyte distribution width (RBC) [Ratio] 13.9 % Normal 11.6-14.6 [facility] Comment on above: Performed By: #### L 100.0100 ####[facility] [address] [place], [address] Hematocrit (Bld) [Volume fraction] 18.5 % Low 37-47 [facility] Comment on above: Performed By: #### L 100.0100 ####[facility] [address] [place], [address] Hemoglobin (Bld) [Mass/Vol] 6.3 g/dL Low 12.0-15.0 [facility] Comment on above: Performed By: #### L 100.0100 ####[facility] [address] [place], [address] IG% 0.300 Normal 0.0-0.9 [facility] Comment on above: Result Comment: IG% - Immature Granulocytes (promyelocytes, myelocytes andmetamyelocytes) > 1% indicates that a LEFT SHIFT is Present. Performed By: #### L 100.0100 ####[facility] [address] [place], [address] Lymphocytes/100 WBC (Bld) 7.8 % Low 19-41 [facility] Comment on above: Performed By: #### L 100.0100 ####[facility] [address] [place], [address] MCH (RBC) [Entitic mass] 31.2 pg Normal 27.0-32.0 [facility] Comment on above: Performed By: #### L 100.0100 ####[facility] [address] [place], [address] MCHC (RBC) [Mass/Vol] 34.1 g/dL Normal 32-36 [facility] Comment on above: Performed By: #### L 100.0100 ####[facility] [address] [place], [address] MCV (RBC) [Entitic vol] 91.6 fL Normal 81-99 [facility] Comment on above: Performed By: #### L 100.0100 ####[facility] [address] [place], [address] Monocytes/100 WBC (Bld) 10.4 % High 0-10 [facility] Comment on above: Performed By: #### L 100.0100 ####[facility] [address] [place], [address] Neutrophils/100 WBC (Bld) 80.9 % High 47-70 [facility] Comment on above: Performed By: #### L 100.0100 ####[facility] [address] [place], [address] Nucleated RBC (Bld) [#/Vol] 0 10*3/uL Normal 0-5 [facility] Comment on above: Performed By: #### L 100.0100 ####[facility] [address] [place], [address] Platelet mean volume (Bld) [Entitic vol] 10.7 fL Normal 6.2-12.0 [facility] Comment on above: Performed By: #### L 100.0100 ####[facility] [address] [place], [address] Platelets (Bld) [#/Vol] 114 10*3/uL Low 150-450 [facility] Comment on above: Performed By: #### L 100.0100 ####[facility] [address] [place], [address] RBC (Bld) [#/Vol] 2.02 10*6/uL Low 4.2-5.4 [facility] Comment on above: Performed By: #### L 100.0100 ####[facility] [address] [place], [address] RDW SD 47.1 fl High 35.1-43.9 [facility] Comment on above: Performed By: #### L 100.0100 ####[facility] [address] [place], [address] WBC (Bld) [#/Vol] 10.3 10*3/uL Normal 4.4-11.0 [facility] Comment on above: Performed By: #### L 100.0100 ####[facility] [address] [place], [address] Absolute Neut Normal 2.0-7.7 [facility] Comment on above: Result Comment: This specimen has been REJECTED due to Laboratory criteria:Clotted.SAMEERA has been notified of need of recollection.05/11/2539 [place] Performed By: #### L 100.0100 ####[facility] [address] [place], [address] HCT Normal 37-47 [facility] Comment on above: Result Comment: This specimen has been REJECTED due to Laboratory criteria:Clotted.SAMEERA has been notified of need of recollection.05/11/2539 [place] Performed By: #### L 100.0100 ####[facility] [address] [place], [address] HGB Normal 12.0-15.0 [facility] Comment on above: Result Comment: This specimen has been REJECTED due to Laboratory criteria:Clotted.SAMEERA has been notified of need of recollection.05/11/2539 [place] Performed By: #### L 100.0100 ####[facility] [address] [place], [address] MCH Normal 27.0-32.0 [facility] Comment on above: Result Comment: This specimen has been REJECTED due to Laboratory criteria:Clotted.SAMEERA has been notified of need of recollection.05/11/25638 [place] Performed By: #### L 100.0100 ####[facility] [address] [place], [address] MCHC Normal 32-36 [facility] Comment on above: Result Comment: This specimen has been REJECTED due to Laboratory criteria:Clotted.SAMEERA has been notified of need of recollection.05/11/25638 [place] Performed By: #### L 100.0100 ####[facility] [address] [place], [address] MCV Normal 81-99 [facility] Comment on above: Result Comment: This specimen has been REJECTED due to Laboratory criteria:Clotted.SAMEERA has been notified of need of recollection.05/11/25638 [place] Performed By: #### L 100.0100 ####[facility] [address] [place], [address] NEUT% Normal 47-70 [facility] Comment on above: Result Comment: This specimen has been REJECTED due to Laboratory criteria:Clotted.SAMEERA has been notified of need of recollection.05/11/25638 [place] Performed By: #### L 100.0100 ####[facility] [address] [place], [address] PLT Normal 150-450 [facility] Comment on above: Result Comment: This specimen has been REJECTED due to Laboratory criteria:Clotted.SAMEERA has been notified of need of recollection.05/11/25638 [place] Performed By: #### L 100.0100 ####[facility] [address] [place], [address] RBC Normal 4.2-5.4 [facility] Comment on above: Result Comment: This specimen has been REJECTED due to Laboratory criteria:Clotted.SAMEERA has been notified of need of recollection.07/15/25 0639 [place] Performed By: #### L 100.0100 ####[facility] [address] [place], [address] RDW CV Normal 11.6-14.6 [facility] Comment on above: Result Comment: This specimen has been REJECTED due to Laboratory criteria:Clotted.SAMEERA has been notified of need of recollection.05/11/25 0639 [place] Performed By: #### L 100.0100 ####[facility] [address] [place], [address] RDW SD Normal 35.1-43.9 [facility] Comment on above: Result Comment: This specimen has been REJECTED due to Laboratory criteria:Clotted.SAMEERA has been notified of need of recollection.05/11/2539 [place] Performed By: #### L 100.0100 ####[facility] [address] [place], [address] WBC Normal 4.4-11.0 [facility] Comment on above: Result Comment: This specimen has been REJECTED due to Laboratory criteria:Clotted.SAMEERA has been notified of need of recollection.05/11/2539 [place] Performed By: #### L 100.0100 ####[facility] [address] [place], [address] Echo Complete W/ Contraston 05-11-2025 Echo Complete W/ Contrast Normal [facility] Ketones Test strip Ql (U)Ord ered By: Sourav Casiano on 05-11-2025 Ketones Ql (U) Negative Negative [facility] Magnetic resonance imaging r eportOrdered By: Alessandro Hewitt on 05-11-2025 Study report [facility] [address] [place] [address] Brain without Contrast MR#: [id number] Acct: [id number] Name: GOGO WARE Rep #: [id number] : 1940 F 85 From: Rocael Hewitt MD PCP: Dr. Eh Huddleston MD Status: ADM I N Study:Brain without Contrast Date of Exam: 05/11/25 Exam# [id number] Ordering Dr: Sourav Celestin DO PROCEDURE: BRAIN WITHOUT CONTRAST 05/11/2025 REASON FOR EXAM: LETHARGY, RULE OUT CVA TECHNIQUE: Multiplanar and multisequential MRI of the brain was performed without contrast. COMPARISON: CT head/angiography 05/10/2025. 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 Reading Location: [facility] CC: Dr. Sourav Casiano DO; Dr. Eh Huddleston MD ~ Finisher Brush: Signed [facility] Microscopic analysis of urin e for red blood cells (RBC)Ordered By: Sourav Casiano on 05-11-2025 Microscopic analysis of urine for red blood cells (RBC) 0-5 SEEN /hpf 0-5 [facility] Mucus LM Ql (Urine sed)Order ed By: Sourav Casiano on 05-11-2025 Mucus Ql (Urine sed) 0 SEEN /hpf [facility] Nitrite Test strip Ql (U)Ord ered By: Sourav Casiano on 05-11-2025 Nitrite Ql (U) Negative Negative [facility] Protein Test strip Ql (U)Ord ered By: Sourav Casiano on 05-11-2025 Protein Ql (U) 15 mg/dl High Negative [facility] Squamous epithelial cells de tection in urine sediment by light microscopyOrdered By: Sourav Casiano on 05-11-2025 Epithelial cells.squamous LM Ql (Urine sed) 0-5 SEEN /hpf 5-10 [facility] Type AND Screenon 05-11-2025 ABO and Rh group Nom (Bld) Blood group AB Rh(D) positive Normal [facility] Comment on above: Order Comment: CMV N EG? NNumber of units to transfuse: 2Reason for Ordering Blood: AcuteAre the blood/blood products to be transfused? YIs the patient having/had surgery? YYWhen ReadyNYR Performed By: #### B , [facility] ####[facility] [address] [place], [address] Urinalysis, Completeon 05-11 BACTERIA 2+ /hpf Normal None Seen [facility] Comment on above: Order Comment: LORNA TER SPECIMEN Performed By: #### L 400.0001 ####[facility] [address] [place], [address] EPI,SQUAMOUS 0-5 SEEN Normal 5-10 [facility] Comment on above: Order Comment: LORNA TER SPECIMEN Performed By: #### L 400.0001 ####[facility] [address] [place], [address] RBC 0-5 SEEN Normal 0-5 [facility] Comment on above: Order Comment: LORNA TER SPECIMEN Performed By: #### L 400.0001 ####[facility] [address] [place], [address] WBC 0-5 SEEN Normal 0-5 [facility] Comment on above: Order Comment: LORNA TER SPECIMEN Performed By: #### L 400.0001 ####[facility] [address] [place], [place], [address] Mucus Ql (Urine sed) 0 SEEN Normal [facility] Comment on above: Order Comment: LORNA TER SPECIMEN Performed By: #### L 400.0001 ####[facility] [address] [place], [place], [address] Urine clarityOrdered By: Dona Casiano on 05-11-2025 Clarity (U) Clear Clear [facility] Urine color determinationOrd ered By: Sourav Casiano on 05-11-2025 Color (U) Yellow Yellow [facility] Urine glucose detectionOrder ed By: Sourav Casiano on 05-11-2025 Glucose Ql (U) Normal mg/dl Normal [facility] Urine leukocyte esterase det ection by dipstickOrdered By: Sourav Casiano on 05-11-2025 Leukocyte esterase Test strip Ql (U) Negative Negative [facility] Urine pHOrdered By: Sourav Kim on 05-11-2025 pH (U) 5.0 [pH] 5.0 - 8.0 [facility] Urine sediment bacteria coun t by microscopy (number/high power field)Ordered By: Sourav Casiano on 05-11-2025 Bacteria LM.HPF (Urine sed) [#/Area] 2 /[HPF] None Seen [facility] Urine specific gravity measu rementOrdered By: Sourav Casiano on 05-11-2025 Specific gravity (U) [Rel density] 1.020 1.002-1.03 0 [facility] Urine urobilinogen measureme ntOrdered By: Sourav Casiano on 05-11-2025 Urobilinogen Ql (U) Normal mg/dl Normal [facility] White blood cell countOrdere d By: Sourav Casiano on 05-11-2025 White blood cell count 0-5 SEEN /hpf 0-5 [facility] 12 Lead EKGon 05-10-2025 12 Lead EKG Normal [facility] Bedside Glucoseon 05-10-2025 FINGERSTICK GLU 158 mg/dL High 74-106 [facility] Comment on above: Result Comment: CHRISTIAN VÁSQUEZ OF PATIENT CARE PER NURSING PROTOCOL Performed By: #### L 501.080 ####[facility] [address] [place], [address] Blood cultureOrdered By: Dona Casiano on 05-10-2025 Bacteria identified Cx Nom (Bld) No growth in 5 days. [facility] Blood manual differential co mment interpretation (narrative result)Ordered By: Sourav Casiano on 05-10-2025 Manual differential comment Antonino (Bld) [Interp] SCANNED [facility] CBC W/Diff, Automatedon 04-27 PLT EST SLT DEC Normal ADEQ [facility] Comment on above: Performed By: #### L 100.0100 ####[facility] [address] [place], [address] SMEAR COMMENT SCANNED Normal [facility] Comment on above: Performed By: #### L 100.0100 ####[facility] [address] [place], [address] HH, Hemoglobin AND Hematocr iton 05-10-2025 Hematocrit (Bld) [Volume fraction] 23.4 % Low 37-47 [facility] Comment on above: Performed By: #### L 100.0600 ####[facility] [address] [place], [address] Hemoglobin (Bld) [Mass/Vol] 8.0 g/dL Low 12.0-15.0 [facility] Comment on above: Performed By: #### L 100.0600 ####[facility] [address] [place], [address] L499.0042on 05-10-2025 Trop T High Sen 36 ng/L High <=14 [facility] Comment on above: Performed By: #### L 499.0042 ####[facility] [address] [place], [address] L499.0043on 05-10-2025 Trop T High Sen 34 ng/L High <=14 [facility] Comment on above: Order Comment: PEARL 2 HR AN HORU LATE Performed By: #### L 499.0043 ####[facility] [address] [place], [address] L501.4021on 05-10-2025 Trop T High Sen 36 ng/L High <=14 [facility] Comment on above: Performed By: #### L 501.4021 ####[facility] [address] [place], [address] Platelet estimateOrdered By: Sourav Casiano on 05-10-2025 Platelets LM Ql (Bld) SLT DEC ADEQ [facility] STROKE Brain/Head without Co nton 05-10-2025 STROKE Brain/Head without Cont Normal [facility] STROKE CTA Head AND Neck W/C onon 05-10-2025 STROKE CTA Head AND Neck W/Con Normal [facility] Troponin T.cardiac [Mass/vol ume] in Serum or Plasma by High sensitivity methodOrdered By: Sourav Casiano on 05-10-2025 Troponin T.cardiac High sensitivity method [Mass/Vol] 34 ng/L High <14 [facility] Troponin T.cardiac High sensitivity method [Mass/Vol] 36 ng/L High <14 [facility] Troponin T.cardiac High sensitivity method [Mass/Vol] 36 ng/L High <14 [facility] CBC-Complete Blood Cnt No Di ffon 05-09-2025 Erythrocyte distribution width (RBC) [Ratio] 13.7 % Normal 11.6-14.6 [facility] Comment on above: Order Comment: Comme nts: To be done in PACU Performed By: #### L 100.0500 ####[facility] [address] [place], [address] Hematocrit (Bld) [Volume fraction] 27.9 % Low 37-47 [facility] Comment on above: Order Comment: Comme nts: To be done in PACU Performed By: #### L 100.0500 ####[facility] [address] [place], [address] Hemoglobin (Bld) [Mass/Vol] 9.2 g/dL Low 12.0-15.0 [facility] Comment on above: Order Comment: Comme nts: To be done in PACU Performed By: #### L 100.0500 ####[facility] [address] [place], [address] MCH (RBC) [Entitic mass] 30.5 pg Normal 27.0-32.0 [facility] Comment on above: Order Comment: Comme nts: To be done in PACU Performed By: #### L 100.0500 ####[facility] [address] [place], [address] MCHC (RBC) [Mass/Vol] 33.0 g/dL Normal 32-36 [facility] Comment on above: Order Comment: Comme nts: To be done in PACU Performed By: #### L 100.0500 ####[facility] [address] [place], [address] MCV (RBC) [Entitic vol] 92.4 fL Normal 81-99 [facility] Comment on above: Order Comment: Comme nts: To be done in PACU Performed By: #### L 100.0500 ####[facility] [address] [place], [address] Platelet mean volume (Bld) [Entitic vol] 11.1 fL Normal 6.2-12.0 [facility] Comment on above: Order Comment: Comme nts: To be done in PACU Performed By: #### L 100.0500 ####[facility] [address] [place], [address] Platelets (Bld) [#/Vol] 116 10*3/uL Low 150-450 [facility] Comment on above: Order Comment: Comme nts: To be done in PACU Performed By: #### L 100.0500 ####[facility] [address] [place], [address] RBC (Bld) [#/Vol] 3.02 10*6/uL Low 4.2-5.4 [facility] Comment on above: Order Comment: Comme nts: To be done in PACU Performed By: #### L 100.0500 ####[facility] [address] [place], [address] RDW SD 46.4 fl High 35.1-43.9 [facility] Comment on above: Order Comment: Comme nts: To be done in PACU Performed By: #### L 100.0500 ####[facility] [address] [place], [address] WBC (Bld) [#/Vol] 9.0 10*3/uL Normal 4.4-11.0 [facility] Comment on above: Order Comment: Comme nts: To be done in PACU Performed By: #### L 100.0500 ####[facility] [address] [place], [address] Femur Min 2 Viewson 05-09-20 25 Femur Min 2 Views Normal [facility] HH, Hemoglobin AND Hematocri ton 05-09-2025 Hematocrit (Bld) [Volume fraction] 25.3 % Low 37-47 [facility] Comment on above: Performed By: #### L 100.0600 ####[facility] [address] [place], [address] Hemoglobin (Bld) [Mass/Vol] 8.5 g/dL Low 12.0-15.0 [facility] Comment on above: Performed By: #### L 100.0600 ####[facility] [address] [place], [address] MR/POSTOP.ANEon 05-09-2025 MR/POSTOP.ANE Normal [facility] MR/SARUIJJN4se 05-09-2025 MR/POSTOPAN2 Normal [facility] Operative Reporton Operative Report Normal [facility] 12 Lead EKGon 05-08-2025 12 Lead EKG Normal [facility] Basic Metabolic Profile (BMP )on 05-08-2025 BUN/CRE 35.2 RATIO High 10-20 [facility] Comment on above: Performed By: #### L 300.3900, L500.2500 ####[facility] [address] [place], [address] Calcium [Mass/Vol] 9.0 mg/dL Normal 7.6-11.0 [facility] Comment on above: Performed By: #### L 300.3900, L500.2500 ####[facility] [address] [place], [address] Chloride [Moles/Vol] 105 mmol/L Normal 98-108 [facility] Comment on above: Performed By: #### L 300.3900, L500.2500 ####[facility] [address] [place], [address] CO2 [Moles/Vol] 21.1 mmol/L Normal 21.0-32.0 [facility] Comment on above: Performed By: #### L 300.3900, L500.2500 ####[facility] [address] [place], [address] Creatinine [Mass/Vol] 1.09 mg/dL Normal 0.70-1.20 [facility] Comment on above: Performed By: #### L 300.3900, L500.2500 ####[facility] [address] [place], [address] ECRCL 37.62 ml/min Low 50-250 [facility] Comment on above: Performed By: #### L 300.3900, L500.2500 ####[facility] [address] [place], [address] GAP 12 Normal 5-15 [facility] Comment on above: Performed By: #### L 300.3900, L500.2500 ####[facility] [address] [place], [address] GFR/1.73 sq M.predicted among non-blacks MDRD (S/P/Bld) [Vol rate/Area] 49 mL/min/{1.73_m2} Low >60 [facility] Comment on above: Result Comment: mL/m in/1.73m2 CKD-EPI Creatinine Equation (2020) Performed By: #### L 300.3900, L500.2500 ####[facility] [address] [place], [address] Glucose [Mass/Vol] 153 mg/dL High 70-99 [facility] Comment on above: Performed By: #### L 300.3900, L500.2500 ####[facility] [address] [place], [address] Potassium [Moles/Vol] 4.0 mmol/L Normal 3.3-5.1 [facility] Comment on above: Performed By: #### L 300.3900, L500.2500 ####[facility] [address] [place], [address] Sodium [Moles/Vol] 138 mmol/L Normal 133-145 [facility] Comment on above: Performed By: #### L 300.3900, L500.2500 ####[facility] [address] [place], [address] Urea nitrogen [Mass/Vol] 38 mg/dL High 4-19 [facility] Comment on above: Performed By: #### L 300.3900, L500.2500 ####[facility] [address] [place], [address] CBC W/Diff, Automatedon 07-1 2-2024 Absolute Lymph 1.35 X10 3/uL Normal 0.83-4.51 [facility] Comment on above: Performed By: #### L 100.0100 ####[facility] [address] [place], [address] Absolute Neut 6.5 X10 3/uL Normal 2.0-7.7 [facility] Comment on above: Performed By: #### L 100.0100 ####[facility] [address] [place], [address] Basophils/100 WBC (Bld) 0.2 % Normal 0-1 [facility] Comment on above: Performed By: #### L 100.0100 ####[facility] [address] [place], [address] Eosinophils/100 WBC (Bld) 0.2 % Normal 0-5 [facility] Comment on above: Performed By: #### L 100.0100 ####[facility] [address] [place], [address] Erythrocyte distribution width (RBC) [Ratio] 13.4 % Normal 11.6-14.6 [facility] Comment on above: Performed By: #### L 100.0100 ####[facility] [address] [place], [address] Hematocrit (Bld) [Volume fraction] 28.0 % Low 37-47 [facility] Comment on above: Performed By: #### L 100.0100 ####[facility] [address] [place], [address] Hemoglobin (Bld) [Mass/Vol] 9.5 g/dL Low 12.0-15.0 [facility] Comment on above: Performed By: #### L 100.0100 ####[facility] [address] [place], [address] IG% 0.100 Normal 0.0-0.9 [facility] Comment on above: Result Comment: IG% - Immature Granulocytes (promyelocytes, myelocytes andmetamyelocytes) > 1% indicates that a LEFT SHIFT is Present. Performed By: #### L 100.0100 ####[facility] [address] [place], [address] Lymphocytes/100 WBC (Bld) 15.4 % Low 19-41 [facility] Comment on above: Performed By: #### L 100.0100 ####[facility] [address] [place], [address] MCH (RBC) [Entitic mass] 31.1 pg Normal 27.0-32.0 [facility] Comment on above: Performed By: #### L 100.0100 ####[facility] [address] [place], [address] MCHC (RBC) [Mass/Vol] 33.9 g/dL Normal 32-36 [facility] Comment on above: Performed By: #### L 100.0100 ####[facility] [address] [place], [address] MCV (RBC) [Entitic vol] 91.8 fL Normal 81-99 [facility] Comment on above: Performed By: #### L 100.0100 ####[facility] [address] [place], [address] Monocytes/100 WBC (Bld) 10.2 % High 0-10 [facility] Comment on above: Performed By: #### L 100.0100 ####[facility] [address] [place], [address] Neutrophils/100 WBC (Bld) 73.9 % High 47-70 [facility] Comment on above: Performed By: #### L 100.0100 ####[facility] [address] [place], [address] Nucleated RBC (Bld) [#/Vol] 0 10*3/uL Normal 0-5 [facility] Comment on above: Performed By: #### L 100.0100 ####[facility] [address] [place], [address] Platelet mean volume (Bld) [Entitic vol] 10.7 fL Normal 6.2-12.0 [facility] Comment on above: Performed By: #### L 100.0100 ####[facility] [address] [place], [address] Platelets (Bld) [#/Vol] 152 10*3/uL Normal 150-450 [facility] Comment on above: Performed By: #### L 100.0100 ####[facility] [address] [place], [address] RBC (Bld) [#/Vol] 3.05 10*6/uL Low 4.2-5.4 [facility] Comment on above: Performed By: #### L 100.0100 ####[facility] [address] [place], [address] RDW SD 45.3 fl High 35.1-43.9 [facility] Comment on above: Performed By: #### L 100.0100 ####[facility] [address] [place], [address] WBC (Bld) [#/Vol] 8.8 10*3/uL Normal 4.4-11.0 [facility] Comment on above: Performed By: #### L 100.0100 ####[facility] [address] [place], [address] International normalized rat io (INR) calculationOrdered By: Jim Jones on 05-08-2025 INR Coag (Bld) [Relative time] 1.2 {INR} [facility] Prothrombin Time w/INRon INR Coag (PPP) [Relative time] 1.2 {INR} Normal [facility] Comment on above: Performed By: #### L 300.3900, L500.2500 ####[facility] [address] [place], [address] PT Coag (PPP) [Time] 15.5 s High 11.7-14.9 [facility] Comment on above: Performed By: #### L 300.3900, L500.2500 ####[facility] [address] [place], [address] Prothrombin timeOrdered By: Jim oJnes on 05-08-2025 PT Coag (PPP) [Time] 15.5 s High 11.7-14.9 [facility] Absolute lymphocyte countOrd ered By: José Manuel Guzman on 05-07-2025 Lymphocytes Auto (Unsp spec) [#/Vol] 1.48 10*3/uL 0.83-4.51 [facility] Absolute neutrophil countOrd ered By: [facility] on 05-07-2025 Neutrophils (Bld) [#/Vol] 8.8 10*3/uL High 2.0-7.7 [facility] Anion gap in Serum or Plasma Ordered By: José Manuel Guzman on 05-07-2025 Anion gap [Moles/Vol] 10 mmol/L 5-15 [facility] Automated lymphocyte count a s percentage of total leukocytesOrdered By: José Manuel Guzman on 05-07-2025 Lymphocytes/100 WBC Auto (Unsp spec) 13.4 % Low 19-41 [facility] BRCon 05-07-2025 RC Normal [facility] Comment on above: Result Comment: [id number] ABP RC NOT [id number] ABP RC PRSMD TRFSD 05/09/25 0836 Performed By: #### B RC ####[facility] [address] [place], [address] BUN/creatinine ratioOrdered By: José Manuel Guzman on 05-07-2025 Urea nitrogen/Creatinine [Mass ratio] 24.8 mg/mg High 10-20 [facility] Basic Metabolic Profile (BMP )on 05-07-2025 BUN/CRE 24.8 RATIO High 10-20 [facility] Comment on above: Performed By: #### L 500.2500, L100.0100 ####[facility] [address] [place], [address] Calcium [Mass/Vol] 9.2 mg/dL Normal 7.6-11.0 [facility] Comment on above: Performed By: #### L 500.2500, L100.0100 ####[facility] [address] [place], [address] Chloride [Moles/Vol] 103 mmol/L Normal 98-108 [facility] Comment on above: Performed By: #### L 500.2500, L100.0100 ####[facility] [address] [place], [address] CO2 [Moles/Vol] 24.3 mmol/L Normal 21.0-32.0 [facility] Comment on above: Performed By: #### L 500.2500, L100.0100 ####[facility] [address] [place], [address] Creatinine [Mass/Vol] 0.92 mg/dL Normal 0.70-1.20 [facility] Comment on above: Performed By: #### L 500.2500, L100.0100 ####[facility] [address] [place], [address] GAP 10 Normal 5-15 [facility] Comment on above: Performed By: #### L 500.2500, L100.0100 ####[facility] [address] [place], [address] GFR/1.73 sq M.predicted among non-blacks MDRD (S/P/Bld) [Vol rate/Area] 61 mL/min/{1.73_m2} Normal >60 [facility] Comment on above: Result Comment: mL/m in/1.73m2 CKD-EPI Creatinine Equation (2020) Performed By: #### L 500.2500, L100.0100 ####[facility] [address] [place], [address] Glucose [Mass/Vol] 143 mg/dL High 70-99 [facility] Comment on above: Performed By: #### L 500.2500, L100.0100 ####[facility] [address] [place], [address] Potassium [Moles/Vol] 4.0 mmol/L Normal 3.3-5.1 [facility] Comment on above: Result Comment: Hemo lysis present, Results??could be affected.?? Performed By: #### L 500.2500, L100.0100 ####[facility] [address] [place], [address] Sodium [Moles/Vol] 137 mmol/L Normal 133-145 [facility] Comment on above: Performed By: #### L 500.2500, L100.0100 ####[facility] [address] [place], [address] Urea nitrogen [Mass/Vol] 23 mg/dL High 4-19 [facility] Comment on above: Performed By: #### L 500.2500, L100.0100 ####[facility] [address] [place], [address] Basophil percentageOrdered B y: José Manuel Guzman on 05-07-2025 Basophils/100 WBC (Bld) 0.4 % 0-1 [facility] CBC W/Diff, Automatedon 04-27 Absolute Lymph 1.48 X10 3/uL Normal 0.83-4.51 [facility] Comment on above: Performed By: #### L 500.2500, L100.0100 ####[facility] [address] [place], [address] Absolute Neut 8.8 X10 3/uL High 2.0-7.7 [facility] Comment on above: Performed By: #### L 500.2500, L100.0100 ####[facility] [address] [place], [address] Basophils/100 WBC (Bld) 0.4 % Normal 0-1 [facility] Comment on above: Performed By: #### L 500.2500, L100.0100 ####[facility] [address] [place], [address] Eosinophils/100 WBC (Bld) 1.4 % Normal 0-5 [facility] Comment on above: Performed By: #### L 500.2500, L100.0100 ####[facility] [address] [place], [address] Erythrocyte distribution width (RBC) [Ratio] 13.0 % Normal 11.6-14.6 [facility] Comment on above: Performed By: #### L 500.2500, L100.0100 ####[facility] [address] [place], [address] Hematocrit (Bld) [Volume fraction] 36.8 % Low 37-47 [facility] Comment on above: Performed By: #### L 500.2500, L100.0100 ####[facility] [address] [place], [address] Hemoglobin (Bld) [Mass/Vol] 12.3 g/dL Normal 12.0-15.0 [facility] Comment on above: Performed By: #### L 500.2500, L100.0100 ####[facility] [address] [place], [address] IG% 0.400 Normal 0.0-0.9 [facility] Comment on above: Result Comment: IG% - Immature Granulocytes (promyelocytes, myelocytes andmetamyelocytes) > 1% indicates that a LEFT SHIFT is Present. Performed By: #### L 500.2500, L100.0100 ####[facility] [address] [place], [address] Lymphocytes/100 WBC (Bld) 13.4 % Low 19-41 [facility] Comment on above: Performed By: #### L 500.2500, L100.0100 ####[facility] [address] [place], [address] MCH (RBC) [Entitic mass] 30.7 pg Normal 27.0-32.0 [facility] Comment on above: Performed By: #### L 500.2500, L100.0100 ####[facility] [address] [place], [address] MCHC (RBC) [Mass/Vol] 33.4 g/dL Normal 32-36 [facility] Comment on above: Performed By: #### L 500.2500, L100.0100 ####[facility] [address] [place], [address] MCV (RBC) [Entitic vol] 91.8 fL Normal 81-99 [facility] Comment on above: Performed By: #### L 500.2500, L100.0100 ####[facility] [address] [place], [address] Monocytes/100 WBC (Bld) 4.8 % Normal 0-10 [facility] Comment on above: Performed By: #### L 500.2500, L100.0100 ####[facility] [address] [place], [address] Neutrophils/100 WBC (Bld) 79.6 % High 47-70 [facility] Comment on above: Performed By: #### L 500.2500, L100.0100 ####[facility] [address] [place], [address] Nucleated RBC (Bld) [#/Vol] 0 10*3/uL Normal 0-5 [facility] Comment on above: Performed By: #### L 500.2500, L100.0100 ####[facility] [address] [place], [address] Platelet mean volume (Bld) [Entitic vol] 10.2 fL Normal 6.2-12.0 [facility] Comment on above: Performed By: #### L 500.2500, L100.0100 ####[facility] [address] [place], [address] Platelets (Bld) [#/Vol] 144 10*3/uL Low 150-450 [facility] Comment on above: Performed By: #### L 500.2500, L100.0100 ####[facility] [address] [place], [address] RBC (Bld) [#/Vol] 4.01 10*6/uL Low 4.2-5.4 [facility] Comment on above: Performed By: #### L 500.2500, L100.0100 ####[facility] [address] [place], [address] RDW SD 43.8 fl Normal 35.1-43.9 [facility] Comment on above: Performed By: #### L 500.2500, L100.0100 ####[facility] [address] [place], [address] WBC (Bld) [#/Vol] 11.0 10*3/uL Normal 4.4-11.0 [facility] Comment on above: Performed By: #### L 500.2500, L100.0100 ####[facility] [address] [place], [address] Carbon dioxide, total [Moles /volume] in Central venous bloodOrdered By: José Manuel Guzman on 05-07-2025 CO2 [Moles/Vol] 24.3 mmol/L 21.0-32.0 [facility] Chloride assayOrdered By: Ruddy Guzman on 05-07-2025 Chloride [Moles/Vol] 103 mmol/L 98-108 [facility] Consultation - Orthopedicson 05-07-2025 Consultation - Orthopedics Normal [facility] Emergency Department Summary on 05-07-2025 Emergency Department Summary Normal [facility] Eosinophil percentageOrdered By: José Manuel Guzman on 05-07-2025 Eosinophils/100 WBC (Bld) 1.4 % 0-5 [facility] Erythrocyte distribution wid th ratioOrdered By: José Manuel Guzman on 05-07-2025 Erythrocyte distribution width (RBC) [Ratio] 13.0 % 11.6-14.6 [facility] Erythrocyte distribution wid th standard deviationOrdered By: José Manuel Morejon on 05-07-2025 Erythrocyte distribution width (RBC) [Ratio] 43.8 fl 35.1-43.9 [facility] Femur Min 2 Viewson 05-07-20 25 Femur Min 2 Views Normal [facility] Glomerular filtration rate ( GFR) estimation/1.73 sq m using serum, plasma, or whole bOrdered By: José Manuel Guzman on 05-07-2025 GFR/1.73 sq M.predicted among non-blacks MDRD (S/P/Bld) [Vol rate/Area] 61 mL/min/{1.73_m2} >60 [facility] Comment on above: mL/min/1.73m2 CKD-EP I Creatinine Equation (2020) H AND P Exam - Hospitaliston 05-07-2025 H&P Exam - Hospitalist Normal [facility] Hematocrit Auto (Bld) [Volum e fraction]Ordered By: José Manuel Guzman on 05-07-2025 Hematocrit (Bld) [Volume fraction] 36.8 % Low 37-47 [facility] Hemoglobin measurementOrdere d By: José Manuel Guzman on 05-07-2025 Hemoglobin (Bld) [Mass/Vol] 12.3 g/dL 12.0-15.0 [facility] Immature granulocytes/100 WB C Auto (Bld)Ordered By: José Manuel Guzman on 05-07-2025 Immature granulocytes/100 WBC (Bld) 0.400 % 0.0-0.9 [facility] Comment on above: IG% - Immature Granu locytes (promyelocytes, myelocytes and metamyelocytes) > 1% indicates that a LEFT SHIFT is Present. MCV (mean corpuscular volume ) determinationOrdered By: José Manuel Guzman on 05-07-2025 MCV (RBC) [Entitic vol] 91.8 fL 81-99 [facility] Mean corpuscular hemoglobin (MCH) determinationOrdered By: Wister Thomas on 05-07-2025 MCH (RBC) [Entitic mass] 30.7 pg 27.0-32.0 [facility] Mean corpuscular hemoglobin concentration (MCHC) determinationOrdered By: Wister Thomas on 05-07-2025 MCHC (RBC) [Mass/Vol] 33.4 g/dL 32-36 [facility] Mean platelet volume determi nationOrdered By: José Manuelbabs Guzman on 05-07-2025 Platelet mean volume (Bld) [Entitic vol] 10.2 fL 6.2-12.0 [facility] Monocyte percentageOrdered B y: José Manuel Guzman on 05-07-2025 Monocytes/100 WBC (Bld) 4.8 % 0-10 [facility] Neutrophil percentageOrdered By: Wister Thomas on 05-07-2025 Neutrophils/100 WBC (Bld) 79.6 % High 47-70 [facility] Nucleated red blood cell per centageOrdered By: José Manuel Guzman on 05-07-2025 Nucleated RBC/100 WBC (Bld) [Ratio] 0 % 0-5 [facility] Pelvis 1 or 2 Viewson 2024 Pelvis 1 or 2 Views Normal [facility] Platelet countOrdered By: Ruddy Guzman on 05-07-2025 Platelets (Bld) [#/Vol] 144 10*3/uL Low 150-450 [facility] Potassium measurement (mass/ volume)Ordered By: José Manuel Guzman on 05-07-2025 Potassium (Unsp spec) [Mass/Vol] 4.0 mmol/L 3.3-5.1 [facility] Comment on above: Hemolysis present, R esults could be affected. RBC Auto (Bld) [#/Vol]Ordere d By: José Manuel Guzman on 05-07-2025 RBC (Bld) [#/Vol] 4.01 10*6/uL Low 4.2-5.4 [facility] Serum creatinine measurement (mass/volume)Ordered By: José Manuel Guzman on 05-07-2025 Creatinine [Mass/Vol] 0.92 mg/dL 0.70-1.20 [facility] Serum glucose measurement (m ass/volume)Ordered By: José Manuel Guzman on 05-07-2025 Glucose [Mass/Vol] 143 mg/dL High 70-99 [facility] Serum or plasma calcium susy urement (mass/volume)Ordered By: José Manuel Morejon on 05-07-2025 Calcium [Mass/Vol] 9.2 mg/dL 7.6-11.0 [facility] Serum or plasma urea nitroge n measurement (mass/volume)Ordered By: José Manuel Guzman on 05-07-2025 Urea nitrogen [Mass/Vol] 23 mg/dL High 4-19 [facility] Sodium levelOrdered By: Kartik Guzman on 05-07-2025 Sodium [Moles/Vol] 137 mmol/L 133-145 [facility] Type AND Screenon 05-07-2025 Ab SCREEN GEL Negative Normal [facility] Comment on above: Order Comment: S Performed By: #### B TS ####[facility] [address] [place], [address] White blood cell (WBC) count Ordered By: José Manuel Guzman on 05-07-2025 WBC (Bld) [#/Vol] 11.0 10*3/uL 4.4-11.0 [facility] No Panel InformationOrdered By: Leighton Carrillo on 04-11-2025 [facility] [address] [place] [address] CR - Individual Treatment Plan MR#: [id number] Acct: [id number] Name: GOGO WARE p #:[id number] : 1940 85 From: Leighton Martinez BS, [...] BMI: 28.1 Core - 30-Day Assessment Hypertension [employer] Hypertension Guidelines Reassessment Notes & Comments:: Pt and staff working with ward helper to optimize BP's Core - Final Assessment Hypertension [employer] Hy (more content not included)... [facility] Absolute lymphocyte countOrd ered By: Eh Huddleston on 03-31-2025 Lymphocytes Auto (Unsp spec) [#/Vol] 1.39 10*3/uL 0.83-4.51 [facility] Absolute neutrophil countOrd ered By: Eh Huddleston on 03-31-2025 Neutrophils (Bld) [#/Vol] 2.9 10*3/uL 2.0-7.7 [facility] Anion gap in Serum or Plasma Ordered By: Eh Huddleston on 03-31-2025 Anion gap [Moles/Vol] 12 mmol/L 5-15 [facility] Automated lymphocyte count a s percentage of total leukocytesOrdered By: Eh Huddleston on 03-31-2025 Lymphocytes/100 WBC Auto (Unsp spec) 28.9 % 19-41 [facility] BUN/creatinine ratioOrdered By: Eh Huddleston on 03-31-2025 Urea nitrogen/Creatinine [Mass ratio] 23.5 mg/mg High 10-20 [facility] Basophil percentageOrdered B y: Eh Huddleston on 03-31-2025 Basophils/100 WBC (Bld) 0.6 % 0-1 [facility] Bilirubin, totalOrdered By: Eh Huddleston on 03-31-2025 Bilirubin [Mass/Vol] 0.44 mg/dL 0.00-1.30 [facility] CBC W/Diff, Automatedon 06-0 -2024 Absolute Lymph 1.39 X10 3/uL Normal 0.83-4.51 [facility] Comment on above: Performed By: #### L 501.9520, L506.1001, L100.0100, L500.4050, L500.4100 ####[facility] [address] [place], [address] Absolute Neut 2.9 X10 3/uL Normal 2.0-7.7 [facility] Comment on above: Performed By: #### L 501.9520, L506.1001, L100.0100, L500.4050, L500.4100 ####[facility] [address] [place], [address] Basophils/100 WBC (Bld) 0.6 % Normal 0-1 [facility] Comment on above: Performed By: #### L 501.9520, L506.1001, L100.0100, L500.4050, L500.4100 ####[facility] [address] [place], [address] Eosinophils/100 WBC (Bld) 1.5 % Normal 0-5 [facility] Comment on above: Performed By: #### L 501.9520, L506.1001, L100.0100, L500.4050, L500.4100 ####[facility] [address] [place], [address] Erythrocyte distribution width (RBC) [Ratio] 13.4 % Normal 11.6-14.6 [facility] Comment on above: Performed By: #### L 501.9520, L506.1001, L100.0100, L500.4050, L500.4100 ####[facility] [address] [place], [address] Hematocrit (Bld) [Volume fraction] 36.4 % Low 37-47 [facility] Comment on above: Performed By: #### L 501.9520, L506.1001, L100.0100, L500.4050, L500.4100 ####[facility] [address] [place], [address] Hemoglobin (Bld) [Mass/Vol] 12.2 g/dL Normal 12.0-15.0 [facility] Comment on above: Performed By: #### L 501.9520, L506.1001, L100.0100, L500.4050, L500.4100 ####[facility] [address] [place], [address] IG% 0.200 Normal 0.0-0.9 [facility] Comment on above: Result Comment: IG% - Immature Granulocytes (promyelocytes, myelocytes andmetamyelocytes) > 1% indicates that a LEFT SHIFT is Present. Performed By: #### L 501.9520, L506.1001, L100.0100, L500.4050, L500.4100 ####[facility] [address] [place], [address] Lymphocytes/100 WBC (Bld) 28.9 % Normal 19-41 [facility] Comment on above: Performed By: #### L 501.9520, L506.1001, L100.0100, L500.4050, L500.4100 ####[facility] [address] [place], [address] MCH (RBC) [Entitic mass] 30.3 pg Normal 27.0-32.0 [facility] Comment on above: Performed By: #### L 501.9520, L506.1001, L100.0100, L500.4050, L500.4100 ####[facility] [address] [place], [address] MCHC (RBC) [Mass/Vol] 33.5 g/dL Normal 32-36 [facility] [facility] Comment on above: Performed By: #### L 501.9520, L506.1001, L100.0100, L500.4050, L500.4100 ####[facility] [address] [place], [address] MCV (RBC) [Entitic vol] 90.3 fL Normal 81-99 [facility] Comment on above: Performed By: #### L 501.9520, L506.1001, L100.0100, L500.4050, L500.4100 ####[facility] [address] [place], [address] Monocytes/100 WBC (Bld) 8.7 % Normal 0-10 [facility] Comment on above: Performed By: #### L 501.9520, L506.1001, L100.0100, L500.4050, L500.4100 ####[facility] [address] [place], [address] Neutrophils/100 WBC (Bld) 60.1 % Normal 47-70 [facility] Comment on above: Performed By: #### L 501.9520, L506.1001, L100.0100, L500.4050, L500.4100 ####[facility] [address] [place], [address] Nucleated RBC (Bld) [#/Vol] 0 10*3/uL Normal 0-5 [facility] Comment on above: Performed By: #### L 501.9520, L506.1001, L100.0100, L500.4050, L500.4100 ####[facility] [address] [place], [address] Platelet mean volume (Bld) [Entitic vol] 11.0 fL Normal 6.2-12.0 [facility] Comment on above: Performed By: #### L 501.9520, L506.1001, L100.0100, L500.4050, L500.4100 ####[facility] [address] [place], [address] Platelets (Bld) [#/Vol] 162 10*3/uL Normal 150-450 [facility] Comment on above: Performed By: #### L 501.9520, L506.1001, L100.0100, L500.4050, L500.4100 ####[facility] [address] [place], [address] RBC (Bld) [#/Vol] 4.03 10*6/uL Low 4.2-5.4 [facility] Comment on above: Performed By: #### L 501.9520, L506.1001, L100.0100, L500.4050, L500.4100 ####[facility] [address] [place], [address] RDW SD 44.7 fl High 35.1-43.9 [facility] Comment on above: Performed By: #### L 501.9520, L506.1001, L100.0100, L500.4050, L500.4100 ####[facility] [address] [place], [address] WBC (Bld) [#/Vol] 4.8 10*3/uL Normal 4.4-11.0 [facility] Comment on above: Performed By: #### L 501.9520, L506.1001, L100.0100, L500.4050, L500.4100 ####[facility] [address] [place], [address] Calculated very low density lipoprotein (VLDL) cholesterol measurementOrdered By: Eh Huddleston on 03-31-2025 Calculated very low density lipoprotein (VLDL) cholesterol measurement 16 mg/dL 5-40 [facility] Carbon dioxide, total [Moles /volume] in Central venous bloodOrdered By: Eh Huddleston on 03-31-2025 CO2 [Moles/Vol] 21.6 mmol/L 21.0-32.0 [facility] Chloride assayOrdered By: Collin Huddleston on 03-31-2025 Chloride [Moles/Vol] 105 mmol/L 98-108 [facility] Comprehensive Metabolic Prof ilon 03-31-2025 Albumin [Mass/Vol] 4.0 g/dL Normal 3.4-4.8 [facility] Comment on above: Performed By: #### L 501.9520, L506.1001, L100.0100, L500.4050, L500.4100 ####[facility] [address] [place], [address] Albumin/Globulin [Mass ratio] 1.4 {ratio} Normal 0.9-2.4 [facility] Comment on above: Performed By: #### L 501.9520, L506.1001, L100.0100, L500.4050, L500.4100 ####[facility] [address] [place], [address] ALK PHOS 75 U/L Normal 35-104 [facility] Comment on above: Performed By: #### L 501.9520, L506.1001, L100.0100, L500.4050, L500.4100 ####[facility] [address] [place], [address] ALT [Catalytic activity/Vol] 12 U/L Normal <=34 [facility] Comment on above: Performed By: #### L 501.9520, L506.1001, L100.0100, L500.4050, L500.4100 ####[facility] [address] [place], [address] AST [Catalytic activity/Vol] 53 U/L High <=31 [facility] Comment on above: Performed By: #### L 501.9520, L506.1001, L100.0100, L500.4050, L500.4100 ####[facility] [address] [place], [address] Bilirubin [Mass/Vol] 0.44 mg/dL Normal 0.00-1.30 [facility] Comment on above: Performed By: #### L 501.9520, L506.1001, L100.0100, L500.4050, L500.4100 ####[facility] [address] [place], [address] BUN/CRE 23.5 RATIO High 10-20 [facility] Comment on above: Performed By: #### L 501.9520, L506.1001, L100.0100, L500.4050, L500.4100 ####[facility] [address] [place], [address] Calcium [Mass/Vol] 9.5 mg/dL Normal 7.6-11.0 [facility] Comment on above: Performed By: #### L 501.9520, L506.1001, L100.0100, L500.4050, L500.4100 ####[facility] [address] [place], [address] Chloride [Moles/Vol] 105 mmol/L Normal 98-108 [facility] Comment on above: Performed By: #### L 501.9520, L506.1001, L100.0100, L500.4050, L500.4100 ####[facility] [address] [place], [address] CO2 [Moles/Vol] 21.6 mmol/L Normal 21.0-32.0 [facility] Comment on above: Performed By: #### L 501.9520, L506.1001, L100.0100, L500.4050, L500.4100 ####[facility] [address] [place], [address] Creatinine [Mass/Vol] 0.79 mg/dL Normal 0.70-1.20 [facility] Comment on above: Performed By: #### L 501.9520, L506.1001, L100.0100, L500.4050, L500.4100 ####[facility] [address] [place], [address] GAP 12 Normal 5-15 [facility] Comment on above: Performed By: #### L 501.9520, L506.1001, L100.0100, L500.4050, L500.4100 ####[facility] [address] [place], [address] GFR/1.73 sq M.predicted among non-blacks MDRD (S/P/Bld) [Vol rate/Area] 73 mL/min/{1.73_m2} Normal >60 [facility] Comment on above: Result Comment: mL/m in/1.73m2 CKD-EPI Creatinine Equation (2020) Performed By: #### L 501.9520, L506.1001, L100.0100, L500.4050, L500.4100 ####[facility] [address] [place], [address] Globulin (S) [Mass/Vol] 2.9 g/dL Normal 2.2-4.2 [facility] Comment on above: Performed By: #### L 501.9520, L506.1001, L100.0100, L500.4050, L500.4100 ####[facility] [address] [place], [address] Glucose [Mass/Vol] 99 mg/dL Normal 70-99 [facility] Comment on above: Performed By: #### L 501.9520, L506.1001, L100.0100, L500.4050, L500.4100 ####[facility] [address] [place], [address] Potassium [Moles/Vol] 4.4 mmol/L Normal 3.3-5.1 [facility] Comment on above: Performed By: #### L 501.9520, L506.1001, L100.0100, L500.4050, L500.4100 ####[facility] [address] [place], [address] Sodium [Moles/Vol] 138 mmol/L Normal 133-145 [facility] Comment on above: Performed By: #### L 501.9520, L506.1001, L100.0100, L500.4050, L500.4100 ####[facility] [address] [place], [address] T PROT 6.9 g/dL Normal 5.9-8.4 [facility] Comment on above: Performed By: #### L 501.9520, L506.1001, L100.0100, L500.4050, L500.4100 ####[facility] [address] [place], [address] Urea nitrogen [Mass/Vol] 19 mg/dL Normal 4-19 [facility] Comment on above: Performed By: #### L 501.9520, L506.1001, L100.0100, L500.4050, L500.4100 ####[facility] [address] [place], [address] Eosinophil percentageOrdered By: Eh Huddleston on 03-31-2025 Eosinophils/100 WBC (Bld) 1.5 % 0-5 [facility] Erythrocyte distribution wid th ratioOrdered By: Eh Huddleston on 03-31-2025 Erythrocyte distribution width (RBC) [Ratio] 13.4 % 11.6-14.6 [facility] Erythrocyte distribution wid th standard deviationOrdered By: Eh Flaquito on 03-31-2025 Erythrocyte distribution width (RBC) [Ratio] 44.7 fl High 35.1-43.9 [facility] Glomerular filtration rate ( GFR) estimation/1.73 sq m using serum, plasma, or whole bOrdered By: Eh Huddleston on 03-31-2025 GFR/1.73 sq M.predicted among non-blacks MDRD (S/P/Bld) [Vol rate/Area] 73 mL/min/{1.73_m2} >60 [facility] Comment on above: mL/min/1.73m2 CKD-EP I Creatinine Equation (2020) Hematocrit Auto (Bld) [Volum e fraction]Ordered By: Eh Huddleston on 03-31-2025 Hematocrit (Bld) [Volume fraction] 36.4 % Low 37-47 [facility] Hemoglobin measurementOrdere d By: Eh Huddleston on 03-31-2025 Hemoglobin (Bld) [Mass/Vol] 12.2 g/dL 12.0-15.0 [facility] Immature granulocytes/100 WB C Auto (Bld)Ordered By: Eh Huddleston on 03-31-2025 Immature granulocytes/100 WBC (Bld) 0.200 % 0.0-0.9 [facility] Comment on above: IG% - Immature Granu locytes (promyelocytes, myelocytes and metamyelocytes) > 1% indicates that a LEFT SHIFT is Present. LDL calc ser/plasOrdered By: Eh Huddleston on 03-31-2025 Cholesterol in LDL [Mass/Vol] 64 mg/dL [facility] Comment on above: Gsxltzagef=065-440 m g/dL & Higher Qkts=435 mg/dL or greater Laboratory - Chemistry and C hemistry - challengeOrdered By: Eh Huddleston on 03-31-2025 AST [Catalytic activity/Vol] 53 U/L High <32 [facility] Lipid Profileon 03-31-2025 CHOL:HDL 2.01 Normal [facility] Comment on above: Performed By: #### L 501.9520, L506.1001, L100.0100, L500.4050, L500.4100 ####[facility] [address] [place], [address] Cholesterol [Mass/Vol] 159 mg/dL Normal <=200 [facility] Comment on above: Result Comment: Chol esterol level, Desirable <200 mg/dLBorderline high cholesterol 200-239 mg/dLHigh cholesterol >=240 mg/dLRecommendations of the NCEP Adult Treatment Panel for thefollowing risk-cutoff thresholds for the [facility]. Performed By: #### L 501.9520, L506.1001, L100.0100, L500.4050, L500.4100 ####[facility] [address] [place], [address] Cholesterol in HDL [Mass/Vol] 79 mg/dL Normal [facility] Comment on above: Result Comment: Elaine onal Cholesterol Education Program (NCEP) guidelines:<40 mg/dL: Low HDL-cholesterol (major risk factor for CHD)>= 60 mg/dL: High HDL-cholesterol (negative risk factor forCHD)HDL-cholesterol is affected by a number of factors, e.g.smoking, exercise, hormones, sex and age. Performed By: #### L 501.9520, L506.1001, L100.0100, L500.4050, L500.4100 ####[facility] [address] [place], [address] Cholesterol in LDL [Mass/Vol] 64 mg/dL Normal [facility] Comment on above: Result Comment: Bord wsdhmk=181-187 mg/dL Higher Ubqr=988 mg/dL or greater Performed By: #### L 501.9520, L506.1001, L100.0100, L500.4050, L500.4100 ####[facility] [address] [place], [address] Cholesterol in VLDL [Mass/Vol] 16 mg/dL Normal 5-40 [facility] Comment on above: Performed By: #### L 501.9520, L506.1001, L100.0100, L500.4050, L500.4100 ####[facility] [address] [place], [address] Triglyceride [Mass/Vol] 79 mg/dL Normal [facility] Comment on above: Result Comment: The drugs N-Acetylcysteine and Metamizole may falselydepress this assay.Normal range: <150 mg/dLBorderline High: 150-199 mg/dLHigh: 200-499 mg/dLVery High: >500 mg/dL Performed By: #### L 501.9520, L506.1001, L100.0100, L500.4050, L500.4100 ####[facility] [address] [place], [address] MCV (mean corpuscular volume ) determinationOrdered By: Eh Huddleston on 03-31-2025 MCV (RBC) [Entitic vol] 90.3 fL 81-99 [facility] Mean corpuscular hemoglobin (MCH) determinationOrdered By: Eh Huddleston on 03-31-2025 MCH (RBC) [Entitic mass] 30.3 pg 27.0-32.0 [facility] Mean corpuscular hemoglobin concentration (MCHC) determinationOrdered By: Eh Huddleston on 03-31-2025 MCHC (RBC) [Mass/Vol] 33.5 g/dL 32-36 [facility] Mean platelet volume determi nationOrdered By: Eh Huddleston on 03-31-2025 Platelet mean volume (Bld) [Entitic vol] 11.0 fL 6.2-12.0 [facility] Monocyte percentageOrdered B y: Eh Huddleston on 03-31-2025 Monocytes/100 WBC (Bld) 8.7 % 0-10 [facility] Neutrophil percentageOrdered By: Eh Huddleston on 03-31-2025 Neutrophils/100 WBC (Bld) 60.1 % 47-70 [facility] No Panel InformationOrdered By: Eh Huddleston on 03-31-2025 53 U/L High <32 [facility] Nucleated red blood cell per centageOrdered By: Eh Huddleston on 03-31-2025 Nucleated RBC/100 WBC (Bld) [Ratio] 0 % 0-5 [facility] Platelet countOrdered By: Collin Huddleston on 03-31-2025 Platelets (Bld) [#/Vol] 162 10*3/uL 150-450 [facility] Potassium measurement (mass/ volume)Ordered By: Eh Huddleston on 03-31-2025 Potassium (Unsp spec) [Mass/Vol] 4.4 mmol/L 3.3-5.1 [facility] RBC Auto (Bld) [#/Vol]Ordere d By: Eh Huddleston on 03-31-2025 RBC (Bld) [#/Vol] 4.03 10*6/uL Low 4.2-5.4 [facility] Screening total cholesterol/ high density lipoprotein (HDL) cholesterol ratioOrdered By: Eh Huddleston on 03-31-2025 Cholesterol.total/Cho lesterol in HDL [Mass ratio] 2.01 {ratio} [facility] Serum creatinine measurement (mass/volume)Ordered By: Eh Huddleston on 03-31-2025 Creatinine [Mass/Vol] 0.79 mg/dL 0.70-1.20 [facility] Serum globulin measurementOr dered By: Eh Huddleston 03-31-2025 Globulin (S) [Mass/Vol] 2.9 g/dL 2.2-4.2 [facility] Serum glucose measurement (m ass/volume)Ordered By: Eh Huddleston on 03-31-2025 Glucose [Mass/Vol] 99 mg/dL 70-99 [facility] Serum or plasma alanine woodall otransferase (ALT) measurementOrdered By: Eh Huddleston 03-31-2025 ALT [Catalytic activity/Vol] 12 U/L <35 [facility] Serum or plasma albumin susy urement (mass/volume)Ordered By: Eh Huddleston 03-31-2025 Albumin [Mass/Vol] 4.0 g/dL 3.4-4.8 [facility] Serum or plasma albumin/glob ulin mass ratioOrdered By: Eh Huddleston 03-31-2025 Albumin/Globulin [Mass ratio] 1.4 {ratio} 0.9-2.4 [facility] Serum or plasma alkaline taisha sphatase measurementOrdered By: Eh Huddletson 03-31-2025 ALP [Catalytic activity/Vol] 75 U/L 35-104 [facility] Serum or plasma calcium susy urement (mass/volume)Ordered By: Eh Huddleston 03-31-2025 Calcium [Mass/Vol] 9.5 mg/dL 7.6-11.0 [facility] Serum or plasma cholesterol in HDL measurement (mass/volume)Ordered By: Eh Huddleston on 03-31-2025 Cholesterol in HDL [Mass/Vol] 79 mg/dL >40 [facility] Comment on above: National Cholesterol Education Program (NCEP) guidelines:<40 mg/dL: Low HDL-cholesterol (major risk factor for CHD)>= 60 mg/dL: High HDL-cholesterol (negative risk factor for CHD)HDL-cholesterol is affected by a number of factors, e.g. smoking, exercise, hormones, sex and age. Serum or plasma cholesterol measurement (mass/volume)Ordered By: Eh Huddleston on 03-31-2025 Cholesterol [Mass/Vol] 159 mg/dL <201 [facility] Comment on above: Cholesterol level, D esirable <200 mg/dLBorderline high cholesterol 200-239 mg/dLHigh cholesterol >=240 mg/dLRecommendations of the NCEP Adult Treatment Panel for the following risk-cutoff thresholds for the [place] population. Serum or plasma urea nitroge n measurement (mass/volume)Ordered By: Eh Huddleston on 03-31-2025 Urea nitrogen [Mass/Vol] 19 mg/dL 4-19 [facility] Sodium levelOrdered By: Eh Huddleston 03-31-2025 Sodium [Moles/Vol] 138 mmol/L 133-145 [facility] TSH DL <= 0.005 mIU/L QnOrde red By: Eh Huddleston on 03-31-2025 TSH Qn 1.610 uIU/mL 0.300-4.20 0 [facility] Thyroid Stim Hormone (TSH)on 03-31-2025 TSH 1.610 uIU/mL Normal 0.300-4.20 0 [facility] Comment on above: Performed By: #### L 501.9520, L506.1001, L100.0100, L500.4050, L500.4100 ####[facility] [address] [place], [address] Total proteinOrdered By: Eh Huddleston on 03-31-2025 Protein [Mass/Vol] 6.9 g/dL 5.9-8.4 [facility] Triglycerides measurementOrd ered By: Eh Huddleston on 03-31-2025 Triglyceride [Mass/Vol] 79 mg/dL <199 [facility] Comment on above: The drugs N-Acetylcy steine and Metamizole may falsely depress this assay. Normal range: <150 mg/dLBorderline High: 150-199 mg/dLHigh: 200-499 mg/dLVery High: >500 mg/dL Vitamin D,25 Hydroxyon 03-31 Vitamin D 25-OH 20.9 ng/mL Low 30-100 [facility] Comment on above: Result Comment: Shu min D StatusDeficiency: <20 ng/mL (50nmol/L)Insufficiency: 20-30 ng/mL (50-75 nmol/L)Sufficiency: 30-100 ng/mL (75-250 nmol/L)Toxicity: >100 ng/mL (>250 nmol/L) Performed By: #### L 501.9520, L506.1001, L100.0100, L500.4050, L500.4100 ####[facility] [address] [place], [address] White blood cell (WBC) count Ordered By: Eh Huddleston on 03-31-2025 WBC (Bld) [#/Vol] 4.8 10*3/uL 4.4-11.0 [facility] 03-11-2025 [facility] Telephone (CARLENE) GOGO WARE ([id number]) 1940 F Date Time Provider Department 03/11/25 [facility] During your visit today, we recorded the following information about you: Lori Santamaria 03/11/2025 11:17 AM Signed Received faxed PA request from pharmacy for Sylviaruthie BIN #[id number] [facility]#[id number] ID: [id number] Group: [id number] Deng Smith APRN.CNP 03/11/2025 12:21 PM Signed Completed request reportedly approved Allergies As of Date: 03/11/2025 (No Known Allergies) Date Reviewed: 03/02/2025 Reviewed by: Lucy Mccall APRN.JACEY - Fully Assessed Reason for Visit: Insurance Authorization [[id number]] Prescriptions as of 03/11/2025 - amoxicillin (AMOXIL) [...] the left eye daily at bedtime. - muzcmnh-xalzrtpus-ypuvmvok,PF (NAO-MSJH-BPK) 0.5-0.15-2 % ophthalmic solution Use 1 Drop [...] hypertension [I10] 09/09/2017 Coronary artery disease involving nikolai guo*04/07/2024 Insomnia [G47.00] 04/07/2024 Glaucoma [H40.9] 04/07/2024 Nonrheumatic aortic valve stenosis [I35.0] 04/07/2024 Acute on chronic diastolic congestive heart kayley*10/29/2024 Severe aortic stenosis [I35.0] 10/30/2024 S/P TAVR (transcatheter aortic valve replacemen*10/30/2024 Encounter Status:Closed by DENG SMITH on 03/11/25 Normal [facility] No Panel InformationOrdered By: Lesa Johnston on 03-11-2025 [facility] [address] [place] [address] CR - Individual Treatment Plan MR#: [id number] Acct: [id number] Name: GOGO WARE p #:[id number] : 1940 84 From: Lesa Johnston PCP: Dr. Eh Huddleston MD DOS: Exercise - Initial Assessment Physician Prescribed Exercise Modalities: Treadmill, Rower, Schwinn Airdyne AD-7, SciFit Stepper, SciFit Pro-II Ergometer and SciFit Lateral Dolores Nutrition - Initial Assessment Weight Mgt (Other Care) Height: 5 ft 5.5 in Weight:: 171 lb BMI: 28.0 BMI (Report if calculated above): 28 Core - Initial Assessment Hypertension Resting Blood Pressure:: 132/70 [place] [employer] Hypertension Guidelines Psychosocial - Initial Assess Target Goals Target Goals Referral to Behavioral Health PS - Interventions: Yes: Referral to Behavioral Health if PHQ-9 score >9: (provided list of local mental health resources) and Yes: Attend Stress Management Classes and No: Referral to [facility] and No: Referral to [...] Stepper, SciFit Pro-II Ergometer and SciFit Lateral Dolores Exercise - 60-day Assessment Visit Date of Eval: 03/11/25 Session #:: 20 Physician Prescribed Exercise Modalities: Treadmill, Rower, Schwinn Airdyne AD-7, SciFit Stepper, SciFit Pro-II Ergometer and SciFit Lateral Dolores Frequency: 3x/week for 12 weeks [36 sessions] [...] and understands safetyrisks (more content not included)... [facility] 03-05-2025 [facility] Telephone (CARDHOSP) GOGO WARE ([id number]) 1940 F Date Time Provider Department 03/05/[address] [facility] During your visit today, we recorded the following information about you: Lucy Mccall APRN.CNP 03/05/2025 2:39 PM Signed Spoke with patient's friend, Marni. 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 She is going to assist her in applying for a copay card. If she doesn't qualify, we discussed the possibility of switching to Coumadin. They will reach out to the office if a switch is needed. Lucy Mccall APRN.ADMINISTRATIVE TECH Allergies As of Date: 03/05/2025 (No Known Allergies) Date Reviewed: 03/02/2025 Reviewed by: Lucy Mccall APRN.ADMINISTRATIVE TECH - Fully Assessed Prescriptions as of 03/05/2025 [...] the left eye daily at bedtime. - pyjymnu-gzdrswzuj-lfwwlbci,PF (EDN-ANOH-VSC) 0.5-0.15-2 % ophthalmic solution Use 1 Drop [...] hypertension [I10] 09/09/2017 Coronary artery disease involving nikolai guo*04/07/2024 Insomnia [G47.00] 04/07/2024 Glaucoma [H40.9] 04/07/2024 Nonrheumatic aortic valve stenosis [I35.0] 04/07/2024 Acute on chronic diastolic congestive heart kayley*10/29/2024 Severe aortic stenosis [I35.0] 10/30/2024 S/P TAVR (transcatheter aortic valve replacemen*10/30/2024 Encounter Status:Closed by LUCY MCCALL on 03/05/25 [facility] 03-04-2025 JACE[facility] Telephone ([employer]) GOGO WARE ([id number]) 1940 F Date Time Provider Department 03/04/25 LUCY MCCALL During your visit today, we recorded the following information about you: Lucy Mccall APRN.CNP 03/04/2025 3:59 PM Signed Spoke with patient [...] up in 1 year. Lucy Mccall APRN.CNP Allergies As of Date: 03/04/2025 (No Known Allergies) Date Reviewed: 03/02/2025 Reviewed by: Lucy Mccall APRN.CNP - Fully Assessed Primary Visit Diagnosis:S/P TAVR (transcatheter aortic valve replacement) [Z95.2] Other Visit Diagnosis:Severe aortic stenosis [I35.0] Order(s):amoxicillin (AMOXIL) 500 mg capsulePlease take 4 capsules by mouth 30-60 minutes prior to dental appointmentDisp: 4 capsuleRfl: 0 CARDIOVASCULAR MEDICINE OP FOLLOW UP APPT ORDER [[id number]] Order #: [id number]: 1 FUTURE ECHO [785567] Order #: [id number]: 1 FUTURE ECG COMPLETE [ECG01] Order #: [id number] FUTURE COMPREHENSIVE METABOLIC PANEL [SQCMP] Order #: [id number] FUTURE BASIC METABOLIC PANEL [SQBMP] Order #: [id number] FUTURE NT PRO BNP [SQNTBNP] Order #: [id number] FUTURE Prescriptions as of 03/04/2025 - amoxicillin [...] the left eye daily at bedtime. - efmlsax-gdfmowffr-txcnhfsu,PF (FIN-YBLL-DRW) 0.5-0.15-2 % ophthalmic solution Use 1 Drop [...] hypertension [I10] 09/09/2017 Coronary artery disease involving nikolai guo*04/07/2024 Insomnia [G47.00] 04/07/2024 Glaucoma [H40.9] 04/07/2024 [...] Encounter Status:Closed by LUCY MCCALL on 03/04/25 [facility] 03-02-2025 CNOV Office Visit (CATHMN ) GOGO WARE ([id number]) 1940 F Date Time Provider Department 03/02/25 1:00 PM LUCY MCCALL CATHMN During your visit today, we recorded the following information about you: Respiration Blood pressure Weight Height 17/minute 145/58 75.3 kg 1.664 m Lucy Mccall APRN.CNP 03/02/2025 1:41 PM Signed [facility] [place] Pam López Department of Cardiovascular Medicine SECTION OF INTERVENTIONAL CARDIOLOGY OUTPATIENT VISIT DATE March 01, 2025 OUTPATIENT VISIT TYPE ESTABLISHED FOLLOW UP Primary State Trooper: Dr. Wells Chief Complaint: Patient here for cardiac follow up evaluation History of Present Illness: Patient is a 84 year old female who presents for follow up visit today. 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 Wells. [...] in the left eye daily at bedtime. hggewtj-kmxzeerag-xnpbhmex,PF (MZK-JGIU-LPW) 0.5-0.15-2 % ophthalmic solution Use 1 Drop [...] stressors HEMATOLOGY/LYMPHOLOGY: (more content not included)... Normal [facility] CREATININE, BLOOD (POC)on Creatinine [Mass/Vol] 1 mg/dL 0.7 - 1.4 mg/dL [facility] GFR/1.73 sq M.predicted among non-blacks MDRD (S/P/Bld) [Vol rate/Area] 55 mL/min/{1.73_m2} mL/min/1.7 3 m2 [facility] Location:Radiology [facility], [address] [place] [address], [facility] Adults (18+): eGFR is calculated using the 2020 CKD-EPI Creatinine Equation. Pediatric patients (<18): eGFR should be clinically calculated using the 2020 Robertson Equation. The National Kidney Foundation provides online calculators. [facility] POINT OF CARE [facility] CT CARDIAC W IVCONon 025 CT CARDIAC [...] TECHNIQUE: SCANNER:out-patient Siemens Definition Force Dual source [id number] scanner PROTOCOL: Spiral imaging of the heart [...] reconstructions suggesting fast, unrestricted motion - the nikolai calcified leaflets are seen displaced into the periphery of the coronary sinuses visualized AORTA: Pathology: No acute aortic pathology. Aortic Size: Normal size visualized segments of thoracic aorta. STJ: maintained. Wall Changes: Mild partially calcified wall changes ascending aorta. Adherent wall thrombus/plaque descending thoracic aorta. AORTIC DIMENSIONS: nikolai AORTIC ROOT: 3.0 cm measured zztjd-nt-jenrf mid ASCENDING THORACIC AORTA: 3.4 cm mid DESCENDING THORACIC AORTA: 2.1 cm limited upper ABDOMEN: unremarkable BONES and SOFT TISSUES: degenerative changes of the thoracic spine. Security Nurse (topogram) images: No additional findings. IMPRESSION: s/p TAVR Leaflet Thickening suggest HALT: - Valve leaflets are identified in diastolic reconstructions with thickening along the base of the right sided leaflet Finisher Brush: ESTIVEN Transcribe Date/Time: Mar 02 2025 2:14P Dictated by : OMAR YIN MD This examination was interpreted and the report reviewed and electronically signed by: NICKI MARIE MD on Mar 02 2025 5:52PM EST [id number] Normal [facility] CT Heart W contrast Marifer IMPRESSION: s/p TAVR Leaflet Thickening suggest HALT: - Valve leaflets are identified in diastolic reconstructions with thickening along the base of the right sided leaflet Finisher Brush: ESTIVEN Transcribe Date/Time: Mar 02 2025 2:14P Dictated [...] TECHNIQUE: SCANNER:out-patient Siemens Definition Force Dual source [id number] scanner PROTOCOL: Spiral imaging of the heart [...] reconstructions suggesting fast, unrestricted motion - the nikolai calcified leaflets are seen displaced into the periphery of the coronary sinuses visualized AORTA: Pathology: No acute aortic pathology. Aortic Size: Normal size visualized segments of thoracic aorta. STJ: maintained. Wall Changes: Mild partially calcified wall changes ascending aorta. Adherent wall thrombus/plaque descending thoracic aorta. AORTIC DIMENSIONS: nikolai AORTIC ROOT: 3.0 cm measured mmasl-zi-oaflu mid ASCENDING THORACIC AORTA: 3.4 cm mid DESCENDING THORACIC AORTA: 2.1 cm limited upper ABDOMEN: unremarkable BONES and SOFT TISSUES: degenerative changes of the thoracic spine. Security Nurse (topogram) images: No additional findings. DIVISION OF [...] TECHNIQUE: SCANNER:out-patient Siemens Definition Force Dual source [id number] scanner PROTOCOL: Spiral imaging of the heart [...] reconstructions suggesting fast, unrestricted motion - the nikolai calcified leaflets are seen displaced into the periphery of the coronary sinuses visualized AORTA: Pathology: No acute aortic pathology. Aortic Size: Normal size visualized segments of thoracic aorta. STJ: maintained. Wall Changes: Mild partially calcified wall changes ascending aorta. Adherent wall thrombus/plaque descending thoracic aorta. AORTIC DIMENSIONS: nikolai AORTIC ROOT: 3.0 cm measured wwwuw-ca-vibxp mid ASCENDING THORACIC AORTA: 3.4 cm mid DESCENDING THORACIC AORTA: 2.1 cm limited upper ABDOMEN: unremarkable BONES and SOFT TISSUES: degenerative changes of the thoracic spine. Security Nurse (topogram) images: No additional findings. IMPRESSION IMPRESSION: s/p TAVR Leaflet Thickening suggest HALT: - Valve leaflets are identified in diastolic reconstructions with thickening along the base of the right sided leaflet Finisher Brush: PSCB Transcribe Date/Time: Mar 02 2025 2:14P Dictated by : OMAR YIN MD This examination was interpreted and the report reviewed and electronically signed by: NICKI MARIE MD on Mar 02 2025 5:52PM EST [facility] Radiology Study observation (narrative) [facility] CT Heart W contrast IVOrdere d By: Ccf Provider on 03-02-2025 [facility] PVR ANK/CEE/TOE [facility] on 03-02-2025 PVR ANK/CEE/TOE [facility] Non-Invasive Vascular Laboratory [facility] J35 Lower Extremity Arterial Physiology Study Bilateral/Complete [...] ankle: Normal at rest. Technologist: Nuris Ruelas RVT Ordering physician: ODILON WELLS Interpreting physician: SHERIDAN Perez MD Final CC [employer] Medical Image : [id number] UID See Link below for Image Normal [facility] LEG ARTERIAL PERIPH UNL V LABon 03-02-2025 LEG ARTERIAL PERIPH UNL VAS LAB Non-Invasive Vascular Laboratory [facility] J35 Lower Extremity Arterial Duplex Unilateral - [...] physician: Pascual Guaman MD, SHERIDAN Final CC [employer] Medical Image : [id number] See Link below for Image Normal [facility] (CATHMN[facility] GOGO WARE ([id number]) 1940 F Date Time Provider Department 03/01/25 ODILON WELLS CATHMN During your visit today, we recorded [...] the left eye daily at bedtime. - hlgletd-atlybwqut-rpsbzogn,PF (XSW-DYZU-PBJ) 0.5-0.15-2 % ophthalmic solution Use 1 Drop [...] hypertension [I10] 09/09/2017 Coronary artery disease involving nikolai guo*04/07/2024 Insomnia [G47.00] 04/07/2024 Glaucoma [H40.9] 04/07/2024 Nonrheumatic aortic valve stenosis [I35.0] 04/07/2024 Acute on chronic diastolic congestive heart kayley*10/29/2024 Severe aortic stenosis [I35.0] 10/30/2024 S/P TAVR (transcatheter aortic valve replacemen*10/30/2024 Encounter Status:Closed by [facility]AV[facility] GO[facility] W[facility] ([id number]) 1940 F Date Time Provider Department 03/01/25 ODILON WELLS During your visit today, we recorded the following information about you: Raven Zazueta 03/01/2025 9:16 AM Signed Althea had questions about the three different [...] the left eye daily at bedtime. - ppwiwfq-jarsysyso-uqrdhbkp,PF (RZA-GHQN-KOD) 0.5-0.15-2 % ophthalmic solution Use 1 Drop [...] hypertension [I10] 09/09/2017 Coronary artery disease involving nikolai guo*04/07/2024 Insomnia [G47.00] 04/07/2024 Glaucoma [H40.9] 04/07/2024 Nonrheumatic aortic valve stenosis [I35.0] 04/07/2024 Acute on chronic diastolic congestive heart kayley*10/29/2024 Severe aortic stenosis [I35.0] 10/30/2024 S/P TAVR (transcatheter aortic valve replacemen*10/30/2024 Encounter Status:Closed by RAVEN ZAZUETA on 03/01/25 Normal [facility] CR - History AND Physicalon 01-14-2025 CR - History & Physical Normal [facility] Cardiac rehabilitation evalu ation reportOrdered By: Leighton Carrillo on 01-14-2025 Study report [facility] Cardiac Rehab [address] [place] [address] CR - History & Physical MR#: [id number] Acct: [id number] Name: GOGO WARE p #:[id number] : 1940 84 From: Leighton Martinez BS, [...] Do you have a Healthcare Power of Oceanographic Meteorologist?: Yes Living Will: Yes Advance Directives Information [...] 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 [facility] No Panel InformationOrdered By: Leighton Carrillo on 01-14-2025 [facility] Cardiac Rehab [address] [place] [address] CR - Individual Treatment Plan MR#: [id number] Acct: [id number] Name: GOGO WARE Heidi p #:[id number] : 1940 84 From: Leighton Martinez BS, [...] Referral to Physical Therapy: No Referral to [facility] Case Management: No Fall Risk Assessed:: Yes Assistive Devices:: None Exercise - Initial Assessment Visit Date of Eval: 01/14/25 (initial eval) Mets: Pre-: >5 METS for 30 minutes by discharge Physician Prescribed Exercise Modalities: Treadmill, Teradicin Airdyne AD-7, SciFit Stepper, Diagnostic PhotonicsFit Pro-II Ergometer and Diagnostic PhotonicsFit Lateral Financial Services Assistant Frequency: 3x/week for 12 weeks [36 [...] program as appropri (more content not included)... [facility] GOGO [facility] ([id number]) 1940 F Date Time Provider Department 01/08/25 ODILON WELLS During your visit today, we recorded the following information about you: Lita Lora 01/08/2025 2:34 PM Signed Notes and reports sent to [facility] cardiac rehab, along with order Allergies As [...] the left eye daily at bedtime. - zhvhaaw-itbdymzya-mzpxdzda,PF (DJV-HUMQ-SMX) 0.5-0.15-2 % ophthalmic solution Use 1 Drop [...] hypertension [I10] 09/09/2017 Coronary artery disease involving nikolai guo*04/07/2024 Insomnia [G47.00] 04/07/2024 Glaucoma [H40.9] 04/07/2024 Nonrheumatic aortic valve stenosis [I35.0] 04/07/2024 Acute on chronic diastolic congestive heart kayley*10/29/2024 Severe aortic stenosis [I35.0] 10/30/2024 S/P TAVR (transcatheter aortic valve replacemen*10/30/2024 Encounter Status:Closed by LITA LORA on 01/08/25 Normal [facility] CNPEvelia 12-24-2024 CNPN Telephone (CATHMN) GOGO WARE ([id number]) 1940 F Date Time Provider Department 12/24/24 ODILON WELLS CATHMN During your visit today, we recorded [...] the left eye daily at bedtime. - imqkbbb-bccyqtrdu-iqaylemh,PF (CFH-YZLF-ANZ) 0.5-0.15-2 % ophthalmic solution Use 1 Drop [...] hypertension [I10] 09/09/2017 Coronary artery disease involving nikolai guo*04/07/2024 Insomnia [G47.00] 04/07/2024 Glaucoma [H40.9] 04/07/2024 Nonrheumatic aortic valve stenosis [I35.0] 04/07/2024 Acute on chronic diastolic congestive heart kayley*10/29/2024 Severe aortic stenosis [I35.0] 10/30/2024 S/P TAVR (transcatheter aortic valve replacemen*10/30/2024 Encounter Status:Closed by IRENE BURR on 12/24/24 [facility] Telephone (HVICTR) GOGO WARE ([id number]) 1940 F Date Time Provider Department 12/24/24 ODILON WELLS HVICTR During your visit today, we recorded the following information about you: Chuckie Wells RN 12/24/2024 1:24 PM Addendum [facility] Phone Encounter DATE of SERVICE: 12/24/2024 TIME of SERVICE: 1:03 PM Status: Non-urgent, needs attention Service/Provider: Odilon Clifton MD Reason for call: Follow-up Appointment Contact information: [phone] Resolution: Sent to [employer] Comments: Pt family member is trying to [...] up appointment with Interventional Cariology PAPI directly afterwards---[phone] With cardiology as scheduled/requested- sooner if needed. Will need Arterial Doppler and PVR at 3 mo Chuckie Wells RN Date of Resolution: 12/24/2024 Time of Resolution 1:03 PM Lucy Mccall APRN.ADMINISTRATIVE TECH 12/24/2024 2:10 PM Signed Sent to scheduling. [...] the left eye daily at bedtime. - xmynxyu-rnbeaccbw-tcxnttko,PF (EOF-XGCQ-ZVM) 0.5-0.15-2 % ophthalmic solution Use 1 Drop [...] hypertension [I10] 09/09/2017 Coronary artery disease involving nikolai guo*04/07/2024 Insomnia [G47.00] 04/07/2024 Glaucoma [H40.9] 04/07/2024 Nonrheumatic aortic valve stenosis [I35.0] 04/07/2024 Acute on chronic diastolic congestive heart kayley*10/29/2024 Severe aortic stenosis [I35.0] 10/30/2024 S/P TAVR (transcatheter aortic valve replacemen*10/30/2024 Encounter Status:Closed by CHUCKIE WELLS on 12/24/24 Normal [facility] CBC panel Auto (Bld)on 12-23 Erythrocyte distribution width (RBC) [Ratio] 13.0 % Normal 11.5-15.0 [facility] Comment on above: Order Comment: Terri mittal Type: BLOOD SPECIMEN Ordering Facility: [facility] Address: [address] [place] [address] Performed By: #### 2 4323-8, 17642-9 #### [facility] CLIA [id number] [address] [place] [address] [place] Hematocrit (Bld) [Volume fraction] 35.6 % Low 36.0-46.0 [facility] Comment on above: Order Comment: Terri mittal Type: BLOOD SPECIMEN Ordering Facility: [facility] Address: [address] [place] [address] Performed By: #### 2 4323-8, 21515-7 #### [facility] CLIA [id number] [address] [place] [address] [place] Hemoglobin (Bld) [Mass/Vol] 11.7 g/dL Normal 11.5-15.5 [facility] Comment on above: Order Comment: Speci men Type: BLOOD SPECIMEN Ordering Facility: [facility] Address: [address] [place] [address] Performed By: #### 2 4323-8, 46224-5 #### [facility] CLIA [id number] [address] [place] [address] [place] MCH (RBC) [Entitic mass] 30.4 pg Normal 26.0-34.0 [facility] Comment on above: Order Comment: Speci men Type: BLOOD SPECIMEN Ordering Facility: [facility] Address: [address] [place] [address] Performed By: #### 2 4323-8, 78220-9 #### [facility] CLIA [id number] [address] [place] [address] [place] MCHC (RBC) [Mass/Vol] 32.9 g/dL Normal 30.5-36.0 [facility] Comment on above: Order Comment: Speci men Type: BLOOD SPECIMEN Ordering Facility: [facility] Address: [address] [place] [address] Performed By: #### 2 4323-8, 87819-8 #### [facility] CLIA [id number] [address] [place] [address] [place] MCV (RBC) [Entitic vol] 92.5 fL Normal 80.0-100.0 [facility] Comment on above: Order Comment: Speci men Type: BLOOD SPECIMEN Ordering Facility: [facility] Address: [address] [place] [address] Performed By: #### 2 4323-8, 03290-1 #### [facility] CLIA [id number] [address] [place] [address] [place] Nucleated RBC (Bld) [#/Vol] 10*3/uL Normal <0.01 [facility] Comment on above: Order Comment: Speci men Type: BLOOD SPECIMEN Ordering Facility: [facility] Address: [address] [place] [address] Performed By: #### 2 4323-8, 27076-6 #### [facility] CLIA [id number] [address] [place] [address] [place] Platelet mean volume (Bld) [Entitic vol] 10.7 fL Normal 9.0-12.7 [facility] Comment on above: Order Comment: Speci men Type: BLOOD SPECIMEN Ordering Facility: [facility] Address: [address] [place] [address] Performed By: #### 2 4323-8, 32844-3 #### [facility] CLIA [id number] [address] [place] [address] [place] Platelets (Bld) [#/Vol] 142 10*3/uL Low 150-400 [facility] Comment on above: Order Comment: Speci men Type: BLOOD SPECIMEN Ordering Facility: [facility] Address: [address] [place] [address] Performed By: #### 2 4323-8, 14827-2 #### [facility] CLIA [id number] [address] [place] [address] [place] RBC (Bld) [#/Vol] 3.85 10*6/uL Low 3.90-5.20 [facility] Comment on above: Order Comment: Speci men Type: BLOOD SPECIMEN Ordering Facility: [facility] Address: [address] [place] [address] Performed By: #### 2 4323-8, 39614-2 #### [facility] CLIA [id number] [address] [place] [address] [place] WBC (Bld) [#/Vol] 6.79 10*3/uL Normal 3.70-11.00 [facility] Comment on above: Order Comment: Speci men Type: BLOOD SPECIMEN Ordering Facility: [facility] Address: [address] [place] [address] Performed By: #### 2 4323-8, 79973-2 #### [facility] CLIA [id number] [address] [place] [address] OF [facility] CNOVon 12-23-2024 CNOV Office Visit (CATHMN ) GOGO WARE ([id number]) 1940 F Date Time Provider Department 12/23/24 1:30 PM DENG SMITH CATHMN During your visit today, we recorded the following information about you: Pulse Respiration Blood pressure Weight 64/minute 18/minute 128/53 74.4 kg Height 1.651 m Deng Smith, TEST WORKER.ADMINISTRATIVE TECH 12/23/2024 2:15 PM Signed [facility] [place] Pam López Department of Cardiovascular Medicine SECTION OF INTERVENTIONAL CARDIOLOGY OUTPATIENT VISIT DATE December 23, 2024 OUTPATIENT VISIT TYPE ESTABLISHED FOLLOW UP Primary State Trooper: Russell Donald MD Chief Complaint: Patient here [...] TAVR 23 S3 and Stenting of the R-HEEL WASHER STRINGING MACHINE OPERATOR with a 8.0 x 39 mm [place] VBX Balloon expandable stent, RLE Arterial Doppler and PVR completed, right HEEL WASHER STRINGING MACHINE OPERATOR stent patent HFpEF (EF 64%) HTN HLD [...] mo,6 mo and 12 months after procedure. Mubmibh95 mg daily DAPT plavix 75 mg daily [...] up appointment with Interventional Cariology PAPI directly afterwards---[phone] With cardiology as scheduled/requested- sooner if needed. [...] 4lbs from your dry weight, call your ward helper Exercise: Be active and exercise every day. Smoking and alcohol abstinence/cessation, if applicable Heart Failure Education Booklet: information given previously. Please Visit [email or web address] Questions or Concerns after you go home? Please call Nurse ground crew lines person li (more content not included)... Normal [facility] Comprehensive metabolic 2000 panelon 12-23-2024 Albumin [Mass/Vol] 4.2 g/dL Normal 3.9-4.9 [facility] Comment on above: Order Comment: Terri men Type: BLOOD SPECIMEN Ordering Facility: [facility] Address: [address] [place] [address] Performed By: #### 2 4323-8, 97459-7 #### [facility] CLIA [id number] [address] [place] [address] [place] ALP [Catalytic activity/Vol] 76 U/L Normal 34-123 [facility] Comment on above: Order Comment: Speci men Type: BLOOD SPECIMEN Ordering Facility: [facility] Address: [address] [place] [address] Performed By: #### 2 4323-8, 09789-0 #### [facility] CLIA [id number] [address] [place] [address] [place] ALT [Catalytic activity/Vol] 12 U/L Normal 7-38 [facility] Comment on above: Order Comment: Speci men Type: BLOOD SPECIMEN Ordering Facility: [facility] Address: [address] [place] [address] Performed By: #### 2 4323-8, 40026-6 #### [facility] CLIA [id number] [address] [place] [address] [place] Anion gap [Moles/Vol] 11 mmol/L Normal 8-15 [facility] Comment on above: Order Comment: Speci men Type: BLOOD SPECIMEN Ordering Facility: [facility] Address: [address] [place] [address] Performed By: #### 2 4323-8, 16802-6 #### [facility] CLIA [id number] [address] [place] [address] [place] AST [Catalytic activity/Vol] 41 U/L High 13-35 [facility] Comment on above: Order Comment: Speci men Type: BLOOD SPECIMEN Ordering Facility: [facility] Address: [address] [place] [address] Performed By: #### 2 4323-8, 50107-5 #### [facility] CLIA [id number] [address] [place] [address] [place] Bilirubin [Mass/Vol] 0.3 mg/dL Normal 0.2-1.3 [facility] Comment on above: Order Comment: Speci men Type: BLOOD SPECIMEN Ordering Facility: [facility] Address: [address] [place] [address] Performed By: #### 2 4323-8, 23795-7 #### [facility] CLIA [id number] [address] [place] [address] [place] Calcium [Mass/Vol] 9.8 mg/dL Normal 8.5-10.2 [facility] Comment on above: Order Comment: Speci men Type: BLOOD SPECIMEN Ordering Facility: [facility] Address: [address] [place] [address] Performed By: #### 2 4323-8, 51357-2 #### [facility] CLIA [id number] [address] [place] [address] [place] Chloride [Moles/Vol] 104 mmol/L Normal 98-107 [facility] Comment on above: Order Comment: Speci men Type: BLOOD SPECIMEN Ordering Facility: [facility] Address: [address] [place] [address] Performed By: #### 2 4323-8, 46882-9 #### [facility] CLIA [id number] [address] [place] [address] [place] CO2 [Moles/Vol] 25 mmol/L Normal 22-30 [facility] Comment on above: Order Comment: Speci men Type: BLOOD SPECIMEN Ordering Facility: [facility] Address: [address] [place] [address] Performed By: #### 2 4323-8, 52417-0 #### [facility] CLIA [id number] [address] [place] [address] [place] Creatinine [Mass/Vol] 0.85 mg/dL Normal 0.58-0.96 [facility] Comment on above: Order Comment: Speci men Type: BLOOD SPECIMEN Ordering Facility: [facility] Address: [address] [place] [address] Performed By: #### 2 4323-8, 52618-7 #### [facility] CLIA [id number] [address] [place] [address] [place] Creatinine and Glomerular filtration rate.predicted panel (S/P/Bld) 67 mL/min/1.73m??? Normal >=60 [facility] Comment on above: Order Comment: Speci men Type: BLOOD SPECIMEN Ordering Facility: [facility] Address: [address] [place] [address] Result Comment: Leanne mated Glomerular Filtration Rate [...] actual GFR. Performed By: #### 2 4323-8, 97183-9 #### [facility] CLIA [id number] [address] [place] [address] [place] Glucose [Mass/Vol] 99 mg/dL Normal 74-99 [facility] Comment on above: Order Comment: Terri mittal Type: BLOOD SPECIMEN Ordering Facility: [facility] Address: [address] [place] [address] Result Comment: The [place] Diabetes Association (ADA) provides guidance for cutoff [...] Standards of Medical Care in Diabetes 2016, [place] [employer]. Diabetes Care. 2016.39(Suppl 1). Performed By: #### 2 4323-8, 68726-0 #### [facility] CLIA [id number] [address] [place] [address] [place] Potassium [Moles/Vol] 4.7 mmol/L Normal 3.7-5.1 [facility] Comment on above: Order Comment: Terri mittal Type: BLOOD SPECIMEN Ordering Facility: [facility] Address: [address] [place] [address] Performed By: #### 2 4323-8, 08113-1 #### [facility] CLIA [id number] [address] [place] [address] [place] Protein [Mass/Vol] 7.1 g/dL Normal 6.3-8.0 [facility] Comment on above: Order Comment: Speci men Type: BLOOD SPECIMEN Ordering Facility: [facility] Address: [address] [place] [address] Performed By: #### 2 4323-8, 67664-7 #### [facility] CLIA [id number] [address] [place] [address] [place] Sodium [Moles/Vol] 140 mmol/L Normal 136-144 [facility] Comment on above: Order Comment: Speci men Type: BLOOD SPECIMEN Ordering Facility: [facility] Address: [address] [place] [address] Performed By: #### 2 4323-8, 24819-6 #### [facility] CLIA [id number] [address] [place] [address] [place] Urea nitrogen [Mass/Vol] 27 mg/dL High 7-21 [facility] Comment on above: Order Comment: Speci men Type: BLOOD SPECIMEN Ordering Facility: [facility] Address: [address] [place] [address] Performed By: #### 2 4323-8, 66867-4 #### [facility] CLIA [id number] [address] [place] [address] [place] ECG COMPLETEon 12-23-2024 ECG COMPLETE Ventricular Rate : 6 6 BPM Atrial Rate : 66 BPM P-R Interval : 212 ms QRS Duration : 92 ms Q-T Interval : 398 ms QTC Calculation(Bazett) : 417 ms Calculated P Alexander : 70 degrees Calculated R Alexander : 23 degrees Calculated T Alexander : 76 degrees SINUS RHYTHM WITH 1ST DEGREE AV BLOCK OTHERWISE NORMAL ECG Confirmed by AZUL NAILS MD ([id number]) on 01/05/2025 8:44:10 PM NAME : GOGO WARE PID : [id number] : 1940 Gender : Female Race : ORD : [id number] Procedure Date : Dec 23 2024 09:05:41 Edit Date : Jan 05 2025 20:44:15 Diagnosis: SINUS RHYTHM WITH 1ST DEGREE AV BLOCK OTHERWISE NORMAL ECG Confirmed by AZUL NAILS MD ([id number]) on 01/05/2025 8:44:10 PM Test Reason : Location : 314 : J14 J14 Overread By : AZUL NAILS MD Edited By : AZUL NAILS MD Referred By : DENG KOENIG Acquired by : ANICETO REYNOLDS [facility] ECHOon 12-23-2024 Echocardiography Echocardiography Rep ort: Transthoracic Echo [facility] J35 Date of service: 12/23/2024 12:20:08 PM MECHANIC Ordering physician: ODILON WELLS Indication: TAVR Technologist: Francisoc Avila Interpreting physician: Lianne Long MD PATIENT: [...] * * * Final * * * [employer] Medical Image : [id number] goDynamicsSISUID Normal [facility] NT-[facility]BNP [facility] Natriuretic peptide.B prohormone N-Terminal [Mass/Vol] 516 pg/mL High <450 [facility] Comment on above: Order Comment: Speci men Type: BLOOD SPECIMEN Ordering Facility: [facility] Address: [address] [place] [address] Performed By: #### 2 4323-8, 65048-0 #### [facility] CLIA [id number] [address] [place] [address] [place] PVR ANK/CEE/TOE [facility] on 12-23-2024 PVR ANK/CEE/TOE [facility] Non-Invasive Vascular Laboratory [facility] J35 Lower Extremity Arterial Physiology Study Bilateral/Complete [...] Nilay Loredo DO, RVT, RPVI Final CC [employer] Medical Image : [id number] ID See Link below for Image Normal [facility] LEG ARTERIAL PERIPH UNL V LABon 12-23-2024 LEG ARTERIAL PERIPH [facility] LAB Non-Invasive Vascular Laboratory [facility] J35 Lower Extremity Arterial Duplex Unilateral - [...] Nilay Loredo DO, RVT, RPVI Final CC [employer] Medical Image : [id number] goDynamicsSISUID See Link below for Image Normal [facility] CNOVon 11-10-2024 CNOV Office Visit (CATHMN ) GOGO WARE ([id number]) 1940 F Date Time Provider Department 11/10/24 9:45 AM DENG KOENIG CATHMN During your visit today, we recorded the following information about you: Pulse Respiration Blood pressure Weight 62/minute 16/minute 133/55 74.4 kg Deng Koenig APRN.ADMINISTRATIVE TECH 11/10/2024 10:24 AM Signed [facility] [place] Pam López Department of Cardiovascular Medicine SECTION OF INTERVENTIONAL CARDIOLOGY OUTPATIENT VISIT DATE November 10, 2024 OUTPATIENT VISIT TYPE ESTABLISHED FOLLOW UP [employer]: Dr. Lindo Chief Complaint: Patient here for [...] TAVR 23 S3 and Stenting of the R-HEEL WASHER STRINGING MACHINE OPERATOR with a 8.0 x 39 mm [place] VBX Balloon expandable stent, RLE Arterial Doppler and PVR completed, right HEEL WASHER STRINGING MACHINE OPERATOR stent patent HFpEF (EF 64%) HTN HLD Glaucoma (left eye completely blind) Patient underwent TAVR 23 S3 and Stenting of the R-HEEL WASHER STRINGING MACHINE OPERATOR with a 8.0 x 39 mm [place] VBX Balloon expandable stent on 10/30/[address] Wells. RLE Arterial Doppler and PVR completed, right HEEL WASHER STRINGING MACHINE OPERATOR stent patent. Patient presents today for hospital [...] in the left eye daily at bedtime. ukmiwti-wamvqordu-wqfjivqb,PF (BSJ-QAGB-EFU) 0.5-0.15-2 % ophthalmic solution Use 1 Drop [...] BP 133/55 (more content not included)... Normal [facility] ECG COMPLETEon 11-10-2024 ECG COMPLETE Ventricular Rate : 6 3 BPM Atrial Rate : 63 BPM P-R Interval : 222 ms QRS Duration : 100 ms Q-T Interval : 412 ms QTC Calculation(Bazett) : 421 ms Calculated P Alexander : 74 degrees Calculated R Alexander : 25 degrees Calculated T Alexander : 77 degrees SINUS RHYTHM WITH 1ST DEGREE AV BLOCK OTHERWISE NORMAL ECG Confirmed by MD DANIEL HEBA ([id number]) on 11/16/2024 5:11:31 PM NAME : GOGO WARE PID : [id number] : 1940 Gender : Female Race : ORD : [id number] Procedure Date : Nov 10 2024 09:00:28 Edit Date : Nov 16 2024 17:11:31 Diagnosis: SINUS RHYTHM WITH 1ST DEGREE AV BLOCK OTHERWISE NORMAL ECG Confirmed by MD DANIEL HEBA ([id number]) on 11/16/2024 5:11:31 PM Test Reason : Location : 314 : J14 J14 Overread By : MD DANIEL HEBA Edited By : MD DANIEL HEBA Referred By : , Acquired by : KACY INGRAM [facility] PT EDon 11-01-2024 PT ED HNO ID: [id number] Author: JULIANA GARZON RPh Service: Pharmacy Author [...] ORAL DAILY FURTHER RECOMMENDATIONS (IF ANY): [facility]: [phone] Normal [facility] PT ED HNO ID: [id number] Author: LEE ANN CROUCH DTR Service: Nutrition Therapy Author Type: Vice President Mission Integration Type: Patient Education Filed: 11/01/2024 09:50 Note [...] 01, 2024 TIME: 9:49 AM PAGER: Normal [facility] Basic metabolic 2000 panelon 10-31-2024 Anion gap [Moles/Vol] 12 mmol/L Normal 8-15 [facility] Comment on above: Order Comment: Speci men Type: BLOOD SPECIMEN Ordering Facility: [facility] Address: [address] [place] [address] Performed By: #### 2 4323-8, 70742-1 #### [facility] CLIA [id number] [address] [place] [address] [place] Calcium [Mass/Vol] 8.8 mg/dL Normal 8.5-10.2 [facility] Comment on above: Order Comment: Speci men Type: BLOOD SPECIMEN Ordering Facility: [facility] Address: [address] [place] [address] Performed By: #### 2 4323-8, 87446-4 #### [facility] CLIA [id number] [address] [place] [address] [place] Chloride [Moles/Vol] 106 mmol/L Normal 98-107 [facility] Comment on above: Order Comment: Speci men Type: BLOOD SPECIMEN Ordering Facility: [facility] Address: [address] [place] [address] Performed By: #### 2 4323-8, 25740-5 #### [facility] CLIA [id number] [address] [place] [address] [place] CO2 [Moles/Vol] 21 mmol/L Low 22-30 [facility] Comment on above: Order Comment: Speci men Type: BLOOD SPECIMEN Ordering Facility: [facility] Address: [address] [place] [address] Performed By: #### 2 4323-8, 48368-1 #### [facility] CLIA [id number] [address] [place] [address] [place] Creatinine [Mass/Vol] 0.71 mg/dL Normal 0.58-0.96 [facility] Comment on above: Order Comment: Speci men Type: BLOOD SPECIMEN Ordering Facility: [facility] Address: [address] [place] [address] Performed By: #### 2 4323-8, 91382-4 #### [facility] CLIA [id number] [address] [place] [address] [place] Creatinine and Glomerular filtration rate.predicted panel (S/P/Bld) 83 mL/min/1.73m??? Normal >=60 [facility] Comment on above: Order Comment: Speci men Type: BLOOD SPECIMEN Ordering Facility: [facility] Address: [address] [place] [address] Result Comment: Leanne mated Glomerular Filtration Rate [...] actual GFR. Performed By: #### 2 4323-8, 25708-0 #### [facility] CLIA [id number] [address] [place] [address] [place] Glucose [Mass/Vol] 117 mg/dL High 74-99 [facility] Comment on above: Order Comment: Speci men Type: BLOOD SPECIMEN Ordering Facility: [facility] Address: [address] [place] [address] Result Comment: The [place] Diabetes Association (ADA) provides guidance for cutoff [...] Standards of Medical Care in Diabetes 2016, [place] Diabetes Association. Diabetes Care. 2016.39(Suppl 1). Performed By: #### 2 4323-8, 41585-1 #### [facility] CLIA [id number] [address] [place], [place] [address] [place] Potassium [Moles/Vol] 3.8 mmol/L Normal 3.7-5.1 [facility] Comment on above: Order Comment: Rahuli men Type: BLOOD SPECIMEN Ordering Facility: [facility] Address: [address] [place] [address] Performed By: #### 2 4323-8, 71438-0 #### [facility] CLIA [id number] [address] [place] [address] [place] Sodium [Moles/Vol] 139 mmol/L Normal 136-144 [facility] Comment on above: Order Comment: Speci men Type: BLOOD SPECIMEN Ordering Facility: [facility] Address: [address] [place] [address] Performed By: #### 2 4323-8, 60323-6 #### [facility] CLIA [id number] [address] [place] [address] [place] Urea nitrogen [Mass/Vol] 15 mg/dL Normal 7-21 [facility] Comment on above: Order Comment: Speci men Type: BLOOD SPECIMEN Ordering Facility: [facility] Address: [address] [place] [address] Performed By: #### 2 4323-8, 42792-1 #### [facility] CLIA [id number] [address] [place] [address] [place] CBC W Auto Differential pane l (Bld)on 10-31-2024 Basophils (Bld) [#/Vol] 0.03 10*3/uL Normal <0.11 [facility] Comment on above: Order Comment: Speci men Type: BLOOD SPECIMEN Ordering Facility: [facility] Address: [address] [place] [address] Performed By: #### 2 4323-8, 17782-4 #### [facility] CLIA [id number] [address] [place] [address] [place] Basophils/100 WBC (Bld) 0.5 % Normal [facility] Comment on above: Order Comment: Speci men Type: BLOOD SPECIMEN Ordering Facility: [facility] Address: [address] [place] [address] Performed By: #### 2 4323-8, 45370-4 #### [facility] CLIA [id number] [address] [place] [address] [place] Differential cell count method Nom (Bld) Auto Normal [facility] Comment on above: Order Comment: Speci men Type: BLOOD SPECIMEN Ordering Facility: [facility] Address: [address] [place] [address] Performed By: #### 2 4323-8, 49229-3 #### [facility] CLIA [id number] [address] [place] [address] [place] Eosinophils (Bld) [#/Vol] 0.08 10*3/uL Normal <0.46 [facility] Comment on above: Order Comment: Speci men Type: BLOOD SPECIMEN Ordering Facility: [facility] Address: [address] [place] [address] Performed By: #### 2 4323-8, 00994-5 #### [facility] CLIA [id number] [address] [place] [address] [place] Eosinophils/100 WBC (Bld) 1.2 % Normal [facility] Comment on above: Order Comment: Speci men Type: BLOOD SPECIMEN Ordering Facility: [facility] Address: [address] [place] [address] Performed By: #### 2 4323-8, 08586-3 #### [facility] CLIA [id number] [address] [place] [address] [place] Erythrocyte distribution width (RBC) [Ratio] 12.9 % Normal 11.5-15.0 [facility] Comment on above: Order Comment: Speci men Type: BLOOD SPECIMEN Ordering Facility: [facility] Address: [address] [place] [address] Performed By: #### 2 4323-8, 48032-7 #### [facility] CLIA [id number] [address] [place] [address] [place] Hematocrit (Bld) [Volume fraction] 30.5 % Low 36.0-46.0 [facility] Comment on above: Order Comment: Speci men Type: BLOOD SPECIMEN Ordering Facility: [facility] Address: [address] [place] [address] Performed By: #### 2 4323-8, 84820-3 #### [facility] CLIA [id number] [address] [place] [address] [place] Hemoglobin (Bld) [Mass/Vol] 10.3 g/dL Low 11.5-15.5 [facility] Comment on above: Order Comment: Speci men Type: BLOOD SPECIMEN Ordering Facility: [facility] Address: [address] [place] [address] Performed By: #### 2 4323-8, 81524-6 #### [facility] CLIA [id number] [address] [place] [address] [place] Immature granulocytes (Bld) [#/Vol] 10*3/uL Normal <0.10 [facility] Comment on above: Order Comment: Speci men Type: BLOOD SPECIMEN Ordering Facility: [facility] Address: [address] [place] [address] Performed By: #### 2 4323-8, 58454-0 #### [facility] CLIA [id number] [address] [place] [address] [place] Immature granulocytes/100 WBC (Bld) 0.2 % Normal [facility] Comment on above: Order Comment: Speci men Type: BLOOD SPECIMEN Ordering Facility: [facility] Address: [address] [place] [address] Performed By: #### 2 4323-8, 26464-2 #### [facility] CLIA [id number] [address] [place] [address] [place] Lymphocytes (Bld) [#/Vol] 1.01 10*3/uL Normal 1.00-4.00 [facility] Comment on above: Order Comment: Speci men Type: BLOOD SPECIMEN Ordering Facility: [facility] Address: [address] [place] [address] Performed By: #### 2 4323-8, 16717-4 #### [facility] CLIA [id number] [address] [place] [address] [place] Lymphocytes/100 WBC (Bld) 15.5 % Normal [facility] Comment on above: Order Comment: Speci men Type: BLOOD SPECIMEN Ordering Facility: [facility] Address: [address] [place] [address] Performed By: #### 2 4323-8, 29187-1 #### [facility] CLIA [id number] [address] [place] [address] [place] MCH (RBC) [Entitic mass] 31.1 pg Normal 26.0-34.0 [facility] Comment on above: Order Comment: Speci men Type: BLOOD SPECIMEN Ordering Facility: [facility] Address: [address] [place] [address] Performed By: #### 2 4323-8, 46564-2 #### [facility] CLIA [id number] [address] [place] [address] [place] MCHC (RBC) [Mass/Vol] 33.8 g/dL Normal 30.5-36.0 [facility] Comment on above: Order Comment: Speci men Type: BLOOD SPECIMEN Ordering Facility: [facility] Address: [address] [place] [address] Performed By: #### 2 4323-8, 13567-6 #### [facility] CLIA [id number] [address] [place] [address] [place] MCV (RBC) [Entitic vol] 92.1 fL Normal 80.0-100.0 [facility] Comment on above: Order Comment: Speci men Type: BLOOD SPECIMEN Ordering Facility: [facility] Address: [address] [place] [address] Performed By: #### 2 4323-8, 56026-7 #### [facility] CLIA [id number] [address] [place] [address] [place] Monocytes (Bld) [#/Vol] 0.70 10*3/uL Normal <0.87 [facility] Comment on above: Order Comment: Speci men Type: BLOOD SPECIMEN Ordering Facility: [facility] Address: [address] [place] [address] Performed By: #### 2 4323-8, 65191-9 #### [facility] CLIA [id number] [address] [place] [address] [place] Monocytes/100 WBC (Bld) 10.7 % Normal [facility] Comment on above: Order Comment: Speci men Type: BLOOD SPECIMEN Ordering Facility: [facility] Address: [address] [place] [address] Performed By: #### 2 4323-8, 51159-2 #### [facility] CLIA [id number] [address] [place] [address] [place] Neutrophils (Bld) [#/Vol] 4.70 10*3/uL Normal 1.45-7.50 [facility] Comment on above: Order Comment: Speci men Type: BLOOD SPECIMEN Ordering Facility: [facility] Address: [address] [place] [address] Performed By: #### 2 4323-8, 81039-5 #### [facility] CLIA [id number] [address] [place] [address] [place] Neutrophils/100 WBC (Bld) 71.9 % Normal [facility] Comment on above: Order Comment: Speci men Type: BLOOD SPECIMEN Ordering Facility: [facility] Address: [address] [place] [address] Performed By: #### 2 4323-8, 22447-7 #### [facility] CLIA [id number] [address] [place] [address] [place] Nucleated RBC (Bld) [#/Vol] 10*3/uL Normal <0.01 [facility] Comment on above: Order Comment: Speci men Type: BLOOD SPECIMEN Ordering Facility: [facility] Address: [address] [place] [address] Performed By: #### 2 4323-8, 48326-5 #### [facility] CLIA [id number] [address] [place] [address] [place] Nucleated RBC/100 WBC (Bld) [Ratio] 0.0 /100 WBC Normal [facility] Comment on above: Order Comment: Speci men Type: BLOOD SPECIMEN Ordering Facility: [facility] Address: [address] [place] [address] Performed By: #### 2 4323-8, 80074-5 #### [facility] CLIA [id number] [address] [place] [address] [place] Platelet mean volume (Bld) [Entitic vol] 10.8 fL Normal 9.0-12.7 [facility] Comment on above: Order Comment: Speci men Type: BLOOD SPECIMEN Ordering Facility: [facility] Address: [address] [place] [address] Performed By: #### 2 4323-8, 90869-8 #### [facility] CLIA [id number] [address] [place] [address] [place] Platelets (Bld) [#/Vol] 112 10*3/uL Low 150-400 [facility] Comment on above: Order Comment: Speci men Type: BLOOD SPECIMEN Ordering Facility: [facility] Address: [address] [place] [address] Result Comment: Resu lts checked and verified.No clot detected. Performed By: #### 2 4323-8, 43938-9 #### [facility] CLIA [id number] [address] [place] [address] [place] RBC (Bld) [#/Vol] 3.31 10*6/uL Low 3.90-5.20 [facility] Comment on above: Order Comment: Speci men Type: BLOOD SPECIMEN Ordering Facility: [facility] Address: [address] [place] [address] Performed By: #### 2 4323-8, 48473-5 #### [facility] [place] [id number] [address] [place] [address] [place] WBC (Bld) [#/Vol] 6.53 10*3/uL Normal 3.70-11.00 [facility] Comment on above: Order Comment: Speci men Type: BLOOD SPECIMEN Ordering Facility: [facility] Address: [address] [place] [address] Performed By: #### 2 4323-8, 41640-3 #### [facility] IA [id number] [address] [place] [address] [place] NSQ46sw 10-31-2024 ECG01 Ventricular Rate : 7 8 BPM Atrial Rate : 78 BPM P-R Interval : 202 ms QRS Duration : 98 ms Q-T Interval : 406 ms QTC Calculation(Bazett) : 462 ms Calculated P Alexander : 65 degrees Calculated R Alexander : 14 degrees Calculated T Alexander : 139 degrees NORMAL SINUS RHYTHM LATERAL T WAVE ABNORMALITY ABNORMAL ECG Confirmed by AZUL NAILS MD ([id number]) on 11/10/2024 8:13:51 PM NAME : GOGO WARE PID : [id number] : 1940 Gender : Female Race : ORD : Procedure Date : Oct 31 2024 00:09:41 Edit Date : Nov 10 2024 20:13:52 Diagnosis: NORMAL SINUS RHYTHM LATERAL T WAVE ABNORMALITY ABNORMAL ECG Confirmed by AZUL NAILS MD ([id number]) on 11/10/2024 8:13:51 PM Test Reason : Location : [address] : [place] [address] Overread By : AZUL NAILS MD Edited By : AZUL NAILS MD Referred By : , Acquired by : henry coburn, Normal [facility] Natriuretic peptide.B prohormone N-Terminal [Mass/Vol] 1611 pg/mL High <450 [facility] Comment on above: Order Comment: Speci men Type: BLOOD SPECIMEN Ordering Facility: [facility] Address: [address] [place] [address] Performed By: #### 2 4323-8, 11960-6 #### [facility] CLIA [id number] [address] [place] [address] [place] [address] [place] NURSING PROGon 10-31-2024 NURSING PROG HNO ID: [id number] Author: AMRITA DURAN RN Service: Nursing Author Type: Registered Nurse Type: Nursing Progress Note Filed: 10/31/2024 10:37 Note Text: Transfer Note: PATIENT NAME: Gogo Ware Patient Location: [place] [address]/04-28-14 [facility] [facility] transferred into room/unit [facility] in stable condition. Actions taken: Patient belongings with patient. VSS. Pt oriented to room and unit. [place] fall precautions in place and safety maintained. Normal [facility] ANES POSTPROC EVALon 025 ANES POSTPROC EVAL HNO ID: [id number] Author: KENJI NOGUERA DO Service: ? Author Type: Anesthesiologist Type: Anesthesia Postprocedure Evaluation Filed: 10/30/2024 13:42 Note Text: POST ANESTHESIA EVALUATION NOTE : 1940 Procedure Summary Date: 10/30/24 Room / Location: [place] [address] / [facility] CT AND VAS Anesthesia Start: 0700 Anesthesia [...] October 30, 2024 TIME: 1:42 PM CSN: [id number] Normal [facility] ANES PRE-OPon 10-30-2024 ANES PRE-OP HNO ID: [id number] Author: KENJI NOGUERA DO Service: ? 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 Patient / Responsible [employer] agrees to proceed: yes Patient / [...] October 30, 2024 TIME: 6:13 AM CSN: [id number] Normal [facility] ARTERIAL BLOOD GASESon 10-30 Base deficit (BldA) [Moles/Vol] -1 mmol/L Normal -2-0 [facility] Comment on above: Order Comment: Speci men Type: ARTERIAL BLOOD SPECIMEN Ordering Facility: [facility] Address: [address] [place] [address] Performed By: #### A LLBG #### [facility] CLIA [id number] [address] [place] [address] [place] [address] [place] Calcium.ionized (Bld) [Mass/Vol] 1.27 mmol/L Normal 1.08-1.30 [facility] Comment on above: Order Comment: Speci men Type: ARTERIAL BLOOD SPECIMEN Ordering Facility: [facility] Address: [address] [place] [address] Performed By: #### A LLBG #### [facility] CLIA [id number] [address] [place] [address] [place] Calcium.ionized adjusted to pH 7.4 (BldA) [Moles/Vol] 1.26 mmol/L Normal 1.08-1.30 [facility] Comment on above: Order Comment: Speci men Type: ARTERIAL BLOOD SPECIMEN Ordering Facility: [facility] Address: [address] [place] [address] Performed By: #### A LLBG #### [facility] CLIA [id number] [address] [place] [address] [place] Carboxyhemoglobin (BldA) [Mass fraction] 1.0 % Normal 0.0-2.0 [facility] Comment on above: Order Comment: Speci men Type: ARTERIAL BLOOD SPECIMEN Ordering Facility: [facility] Address: [address] [place] [address] Result Comment: Carb oxyhemoglobin Reference Range for Smokers: 2.0-8.0% Performed By: #### A LLBG #### [facility] CLIA [id number] [address] [place] [address] [place] CO2 (Bld) [Partial pressure] 41 mm Hg Normal 36-46 [facility] Comment on above: Order Comment: Speci men Type: ARTERIAL BLOOD SPECIMEN Ordering Facility: [facility] Address: [address] [place] [address] Performed By: #### A LLBG #### [facility] CLIA [id number] [address] [place] [address] [place] CO2 adjusted to patient's actual temperature (Bld) [Partial pressure] 41 mmHg Normal 36-46 [facility] Comment on above: Order Comment: Speci men Type: ARTERIAL BLOOD SPECIMEN Ordering Facility: [facility] Address: [address] [place] [address] Performed By: #### A LLBG #### [facility] CLIA [id number] [address] [place] [address] [place] Glucose [Mass/Vol] 119 mg/dL High 60-105 [facility] Comment on above: Order Comment: Speci men Type: ARTERIAL BLOOD SPECIMEN Ordering Facility: [facility] Address: [address] [place] [address] Performed By: #### A LLBG #### [facility] CLIA [id number] [address] [place] [address] [place] HCO3 (Bld) [Moles/Vol] 24 mmol/L Normal 22-26 [facility] Comment on above: Order Comment: Speci men Type: ARTERIAL BLOOD SPECIMEN Ordering Facility: [facility] Address: [address] [place] [address] Performed By: #### A LLBG #### [facility] CLIA [id number] [address] [place] [address] [place] Hematocrit (Bld) [Volume fraction] 31.0 % Low 36.0-46.0 [facility] Comment on above: Order Comment: Speci men Type: ARTERIAL BLOOD SPECIMEN Ordering Facility: [facility] Address: [address] [place] [address] Performed By: #### A LLBG #### [facility] CLIA [id number] [address] [place] [address] [place] Hemoglobin (Bld) [Mass/Vol] 10.0 g/dL Low 11.5-15.5 [facility] Comment on above: Order Comment: Speci men Type: ARTERIAL BLOOD SPECIMEN Ordering Facility: [facility] Address: [address] [place] [address] Performed By: #### A LLBG #### [facility] CLIA [id number] [address] [address] [place] Lactate [Moles/Vol] 0.6 mmol/L Normal 0.5-2.2 [facility] Comment on above: Order Comment: Speci men Type: ARTERIAL BLOOD SPECIMEN Ordering Facility: [facility] Address: [address] [place], [place] [address] Performed By: #### A LLBG #### [facility] CLIA [id number] [address] [place], [place] [address] [place] Methemoglobin (Bld) [Mass fraction] 0.9 % Normal 0.0-1.5 [facility] Comment on above: Order Comment: Speci men Type: ARTERIAL BLOOD SPECIMEN Ordering Facility: [facility] Address: [address] [place], [place] [address] Performed By: #### A LLBG #### [facility] CLIA [id number] [address] [place], [place] [address] [place] Oxygen (Bld) [Partial pressure] 200 mm Hg High 85-95 [facility] Comment on above: Order Comment: Speci men Type: ARTERIAL BLOOD SPECIMEN Ordering Facility: [facility] Address: [address] [place], [place] [phone] Performed By: #### A LLBG #### [facility] CLIA [id number] [address] [place], [place] [address] [place] Oxygen adjusted to patient's actual temperature (Bld) [Partial pressure] 200 mmHg High 85-95 [facility] Comment on above: Order Comment: Speci men Type: ARTERIAL BLOOD SPECIMEN Ordering Facility: [facility] Address: [address] [place], [place] [address] Performed By: #### A LLBG #### [facility] CLIA [id number] [address] [place] [address] [place] Oxyhemoglobin (BldA) [Mass fraction] 98 % Normal 95-98 [facility] Comment on above: Order Comment: Speci men Type: ARTERIAL BLOOD SPECIMEN Ordering Facility: [facility] Address: [address] [place] [address] Performed By: #### A LLBG #### [facility] CLIA [id number] [address] [place] [address] [place] pH (Bld) 7.38 [pH] Normal 7.35-7.45 [facility] Comment on above: Order Comment: Speci men Type: ARTERIAL BLOOD SPECIMEN Ordering Facility: [facility] Address: [address] [place] [address] Performed By: #### A LLBG #### [facility] CLIA [id number] [address] [place] [address] [place] pH adjusted to patient's actual temperature (Bld) 7.38 Normal 7.35-7.45 [facility] Comment on above: Order Comment: Speci men Type: ARTERIAL BLOOD SPECIMEN Ordering Facility: [facility] Address: [address] [place] [address] Performed By: #### A LLBG #### [facility] CLIA [id number] [address] [place] [address] [place] Potassium [Moles/Vol] 3.7 mmol/L Normal 3.5-5.0 [facility] Comment on above: Order Comment: Speci men Type: ARTERIAL BLOOD SPECIMEN Ordering Facility: [facility] Address: [address] [place] [address] Performed By: #### A LLBG #### [facility] CLIA [id number] [address] [place] [address] [place] Sodium [Moles/Vol] 139 mmol/L Normal 136-144 [facility] Comment on above: Order Comment: Speci men Type: ARTERIAL BLOOD SPECIMEN Ordering Facility: [facility] Address: [address] [place] [address] Performed By: #### A LLBG #### [facility] CLIA [id number] [address] [place] [address] [place] CNDSon 10-30-2024 CNDS HNO ID: [id number] Author: ODILON WELLS MD Service: Cardiovascular Medicine [...] Newell Jerry S3 and Stenting of the R-HEEL WASHER STRINGING MACHINE OPERATOR with a 8.0 x 39 mm [place] VBX Balloon expandable stent, RLE Arterial Doppler and PVR completed, right HEEL WASHER STRINGING MACHINE OPERATOR stent patent, patient monitored overnight. Echo post [...] mo,6 mo and 12 months after procedure. 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 Mixed hyperlipidemia Essential (primary) hypertension Procedures Performed While in the Hospital: Patient underwent successful Transcatheter Aortic Valve Replacement with a 23mm Newell Jerry S3 and Stenting of the R-HEEL WASHER STRINGING MACHINE OPERATOR with a 8.0 x 39 mm [place] VBX Balloon expandable stent Important Tests/Procedures: ECHO: [...] These instructions explain what you or your care transitions nurse need to do to continue your care at home or at another healthcare facility Please go over these instructions with your nurse and care transitions nurse. If you are not sure about something, please ask. Additional Health Information I Need to Know After I Leave the Hospital: Please check your blood pressure at home and record the (more content not included)... Normal [facility] ECG COMPLETEon 10-30-2024 ECG COMPLETE Ventricular Rate : 5 7 BPM Atrial Rate : 57 BPM P-R Interval : 230 ms QRS Duration : 96 ms Q-T Interval : 470 ms QTC Calculation(Bazett) : 457 ms Calculated P Alexander : 76 degrees Calculated R Alexander : 21 degrees Calculated T Alexander : 80 degrees SINUS BRADYCARDIA WITH 1ST DEGREE AV BLOCK NONSPECIFIC T WAVE ABNORMALITY ABNORMAL ECG Confirmed by AZUL NAILS MD ([id number]) on 11/10/2024 8:13:50 PM NAME : GOGO WARE PID : [id number] : 1940 Gender : Female Race : ORD : [id number] Procedure Date : Oct 30 2024 10:00:18 Edit Date : Nov 10 2024 20:13:52 Diagnosis: SINUS BRADYCARDIA WITH 1ST DEGREE AV BLOCK NONSPECIFIC T WAVE ABNORMALITY ABNORMAL ECG Confirmed by AZUL NAILS MD ([id number]) on 11/10/2024 8:13:50 PM Test Reason : Post-OP Location : [address] : [place] [address] Overread By : AZUL NAILS MD Edited By : AZUL NAILS MD Referred By : , Acquired by : [id number], Normal [facility] ECHOon 10-30-2024 Echocardiography Echocardiography Rep ort: Transthoracic Echo [facility] [place] Bedside Date of service: 10/30/2024 10:18:57 AM MECHANIC Ordering physician: ODILON WELLS Indication: S/p TAVR [...] * * * Final * * * [employer] [facility] : [id number] goDynamicsSISUID Normal [facility] INTRAOPERATIVE ECHO Donovan 0 10-30-2024 INTRAOPERATIVE ECHO POST Echocardiography Report: Intraoperative Echo Post (TTE) [facility] [place] OR - J4 Date of service: 10/30/2024 7:08:13 AM MECHANIC Ordering physician: KACY JIMENEZ Indication: TAVR Technologist: [...] exam performed on 08/31/2024. s/p TAVR. Final CC [employer] [facility] : [id number] [employer]ISUID See Link below for Image Normal [facility] OPERATIVE NOon 10-30-2024 OPERATIVE NO HNO ID: [id number] Author: MARCO SMITH MD, PhD Service: Cardiac Surgery Author Type: Physician Type: Operative Report Filed: 11/03/2024 09:25 Note Text: [facility] CARDIO-THORACICSURGERY OPERATIVE/PROCEDURE REPORT LOG ID: [id number] SURGERY/PROCEDURE DATE: 10/30/2024 INCISION/PROCEDURE START TIME: 7:40 AM INCISION CLOSE/PROCEDURE END TIME: 9:45 AM SURGEON(S)/PROCEDURALIST(S) AND SEARCH DEVELOPER(S): Surgeons and Role: Panel 1: * Odilon [...] guidance for needle placement Percutaneous Site: R HEEL WASHER STRINGING MACHINE OPERATOR Transcatheter Aortic Valve Replacement (TAVR): Bowdon Device Used: Yes Temporary Transvenous Pacing Wire [...] with: Covered stent placement TAVR Procedure/Findings: 8x39mm [place] VBX balloon expandable stent deployed in the R HEEL WASHER STRINGING MACHINE OPERATOR-percloses were not effective due to calcified vessel Post Procedure Details: Patient Tolerance of Procedure: tolerated well, no immediate complications Sponge/Instrument/Needle Counts: Final Counts Correct Specimens: None Surgeon/Concrete Panel Installer Participation: The primary Surgeon/Proceduralist performed the procedure with assistance. SPECIMENS: COMPLETED BY: Marco Smith MD, PhD PATIENT NAME: Gogo Ware DATE: November 03, 2024 TIME: 9:20 AM AGE: [age] year old Normal [facility] PVR ANK/CEE/TOE [facility] on 10-30-2024 PVR ANK/CEE/TOE [facility] Non-Invasive Vascular Laboratory [facility] [place] Portable Lower Extremity Arterial Physiology Study Bilateral/Complete [...] ankle: Normal at rest. Technologist: Renee Bar Lizette Ordering physician: ODILON WELLS Interpreting physician: Medina Patel MD, RPLUIS Final CC [employer] [facility] : [id number] See Link below for Image Normal [facility] TAVR PROCEDURE REPORTon TAVR PROCEDURE REPORT Name: [...] volume. Peripheral Vascular Interventions Stenting of the R-HEEL WASHER STRINGING MACHINE OPERATOR with a 8.0 x 39 mm [place] VBX Balloon expandable stent [Deployed at 8 ATMs] and post dilated (proximal segment of the stent) with a 8.0 x 40 mm Bright Cutter balloon. PROCEDURAL DETAILS: Pre-Valve Deployment: The patient [...] artery. Over a Whisper J wire, a Bowdon embolic protection device was deployed in the [...] to a 6F sheath, and proceeded with BRAND INSPECTOR of the external iliac artery with a 8.0 x 40 mm Bright Cutter balloon and compressed the arteriotomy for approx 3 minutes. This reduced bleeding but on follow up angiography we still noticed singificant amount of extravasazation. We then performed BRAND INSPECTOR of the R-HEEL WASHER STRINGING MACHINE OPERATOR with the same frit maker balloon involving the arteriotomy site and performed dry hemostasis for approx 3 minutes. This again reduced level of bleeding but not to an adequate level. We thus decided to upsize the inferior 6 Fr sheath to 7Fr sheath for covered stent placement. Care was taken to (more content not included)... Normal [facility] LEG ARTERIAL PERIPH UNL V LABon 10-30-2024 LEG ARTERIAL PERIPH [facility] LAB Non-Invasive Vascular Laboratory [facility] [place] Portable Lower Extremity Arterial Duplex Limited Date [...] physician: Medina Patel MD, RPVI Final CC [employer] [facility] : [id number] [email or web address] See Link below for Image Normal [facility] CBC W Auto Differential pane l (Bld)on 10-29-2024 Basophils (Bld) [#/Vol] 10*3/uL Normal <0.11 [facility] Comment on above: Order Comment: Speci men Type: BLOOD SPECIMEN Ordering Facility: [facility] Address: [address] [place] [address] Performed By: #### 5 7021-8 #### [facility] CLIA [id number] [address] [place] [address] [place] Basophils/100 WBC (Bld) 0.4 % Normal [facility] Comment on above: Order Comment: Speci men Type: BLOOD SPECIMEN Ordering Facility: [facility] Address: [address] [place] [address] Performed By: #### 5 7021-8 #### [facility] CLIA [id number] [address] [place] [address] [place] Differential cell count method Nom (Bld) Auto Normal [facility] Comment on above: Order Comment: Speci men Type: BLOOD SPECIMEN Ordering Facility: [facility] Address: [address] [place] [address] Performed By: #### 5 7021-8 #### [facility] CLIA [id number] [address] [place] [address] [place] Eosinophils (Bld) [#/Vol] 0.13 10*3/uL Normal <0.46 [facility] Comment on above: Order Comment: Speci men Type: BLOOD SPECIMEN Ordering Facility: [facility] Address: [address] [place] [address] Performed By: #### 5 7021-8 #### [facility] CLIA [id number] [address] [place] [address] [place] Eosinophils/100 WBC (Bld) 2.7 % Normal [facility] Comment on above: Order Comment: Speci men Type: BLOOD SPECIMEN Ordering Facility: [facility] Address: [address] [place] [address] Performed By: #### 5 7021-8 #### [facility] CLIA [id number] [address] [place] [address] [place] Erythrocyte distribution width (RBC) [Ratio] 12.8 % Normal 11.5-15.0 [facility] Comment on above: Order Comment: Speci men Type: BLOOD SPECIMEN Ordering Facility: [facility] Address: [address] [place] [address] Performed By: #### 5 7021-8 #### [facility] CLIA [id number] [address] [place] [address] [place] Hematocrit (Bld) [Volume fraction] 37.4 % Normal 36.0-46.0 [facility] Comment on above: Order Comment: Speci men Type: BLOOD SPECIMEN Ordering Facility: [facility] Address: [address] [place] [address] Performed By: #### 5 7021-8 #### [facility] CLIA [id number] [address] [place] [address] [place] Hemoglobin (Bld) [Mass/Vol] 12.2 g/dL Normal 11.5-15.5 [facility] Comment on above: Order Comment: Speci men Type: BLOOD SPECIMEN Ordering Facility: [facility] Address: [address] [place] [address] Performed By: #### 5 7021-8 #### [facility] CLIA [id number] [address] [place] [address] [place] Immature granulocytes (Bld) [#/Vol] 10*3/uL Normal <0.10 [facility] Comment on above: Order Comment: Speci men Type: BLOOD SPECIMEN Ordering Facility: [facility] Address: [address] [place] [address] Performed By: #### 5 7021-8 #### [facility] CLIA [id number] [address] [place] [address] [place] Immature granulocytes/100 WBC (Bld) 0.0 % Normal [facility] Comment on above: Order Comment: Speci men Type: BLOOD SPECIMEN Ordering Facility: [facility] Address: [address] [place] [address] Performed By: #### 5 7021-8 #### [facility] CLIA [id number] [address] [place] [address] [place] Lymphocytes (Bld) [#/Vol] 1.45 10*3/uL Normal 1.00-4.00 [facility] Comment on above: Order Comment: Speci men Type: BLOOD SPECIMEN Ordering Facility: [facility] Address: [address] [place] [address] Performed By: #### 5 7021-8 #### [facility] CLIA [id number] [address] [place] [address] [place] Lymphocytes/100 WBC (Bld) 29.7 % Normal [facility] Comment on above: Order Comment: Speci men Type: BLOOD SPECIMEN Ordering Facility: [facility] Address: [address] [place] [address] Performed By: #### 5 7021-8 #### [facility] CLIA [id number] [address] [place] [address] [place] MCH (RBC) [Entitic mass] 30.5 pg Normal 26.0-34.0 [facility] Comment on above: Order Comment: Speci men Type: BLOOD SPECIMEN Ordering Facility: [facility] Address: [address] [place] [address] Performed By: #### 5 7021-8 #### [facility] CLIA [id number] [address] [place] [address] [place] MCHC (RBC) [Mass/Vol] 32.6 g/dL Normal 30.5-36.0 [facility] Comment on above: Order Comment: Speci men Type: BLOOD SPECIMEN Ordering Facility: [facility] Address: [address] [place] [address] Performed By: #### 5 7021-8 #### [facility] CLIA [id number] [address] [place] [address] [place] MCV (RBC) [Entitic vol] 93.5 fL Normal 80.0-100.0 [facility] Comment on above: Order Comment: Speci men Type: BLOOD SPECIMEN Ordering Facility: [facility] Address: [address] [place] [address] Performed By: #### 5 7021-8 #### [facility] CLIA [id number] [address] [place] [address] [place] Monocytes (Bld) [#/Vol] 0.44 10*3/uL Normal <0.87 [facility] Comment on above: Order Comment: Speci men Type: BLOOD SPECIMEN Ordering Facility: [facility] Address: [address] [place] [address] Performed By: #### 5 7021-8 #### [facility] CLIA [id number] [address] [place] [address] [place] Monocytes/100 WBC (Bld) 9.0 % Normal [facility] Comment on above: Order Comment: Speci men Type: BLOOD SPECIMEN Ordering Facility: [facility] Address: [address] [place] [address] Performed By: #### 5 7021-8 #### [facility] CLIA [id number] [address] [place] [address] [place] Neutrophils (Bld) [#/Vol] 2.84 10*3/uL Normal 1.45-7.50 [facility] Comment on above: Order Comment: Speci men Type: BLOOD SPECIMEN Ordering Facility: [facility] Address: [address] [place] [address] Performed By: #### 5 7021-8 #### [facility] CLIA [id number] [address] [place] [address] [place] Neutrophils/100 WBC (Bld) 58.2 % Normal [facility] Comment on above: Order Comment: Speci men Type: BLOOD SPECIMEN Ordering Facility: [facility] Address: [address] [place] [address] Performed By: #### 5 7021-8 #### [facility] CLIA [id number] [address] [place], [place] [id number] [place] Nucleated RBC (Bld) [#/Vol] 10*3/uL Normal <0.01 [facility] Comment on above: Order Comment: Speci men Type: BLOOD SPECIMEN Ordering Facility: [facility] Address: [address] [place], [place] [address] Performed By: #### 5 7021-8 #### [facility] CLIA [id number] [address] [place] [address] [place] Nucleated RBC/100 WBC (Bld) [Ratio] 0.0 /100 WBC Normal [facility] Comment on above: Order Comment: Speci men Type: BLOOD SPECIMEN Ordering Facility: [facility] Address: [address] [place] [address] Performed By: #### 5 7021-8 #### [facility] CLIA [id number] [address] [place] [address] [place] Platelet mean volume (Bld) [Entitic vol] 10.8 fL Normal 9.0-12.7 [facility] Comment on above: Order Comment: Speci men Type: BLOOD SPECIMEN Ordering Facility: [facility] Address: [address] [place] [address] Performed By: #### 5 7021-8 #### [facility] CLIA [id number] [address] [place] [address] [place] Platelets (Bld) [#/Vol] 161 10*3/uL Normal 150-400 [facility] Comment on above: Order Comment: Speci men Type: BLOOD SPECIMEN Ordering Facility: [facility] Address: [address] [place] [address] Performed By: #### 5 7021-8 #### [facility] CLIA [id number] [address] [place] [address] [place] RBC (Bld) [#/Vol] 4.00 10*6/uL Normal 3.90-5.20 [facility] Comment on above: Order Comment: Speci men Type: BLOOD SPECIMEN Ordering Facility: [facility] Address: [address] [place] [address] Performed By: #### 5 7021-8 #### [facility] CLIA [id number] [address] [place] [address] [place] WBC (Bld) [#/Vol] 4.88 10*3/uL Normal 3.70-11.00 [facility] Comment on above: Order Comment: Speci men Type: BLOOD SPECIMEN Ordering Facility: [facility] Address: [address] [place] [address] Performed By: #### 5 7021-8 #### [facility] CLIA [id number] [address] [place] [id number] [facility] CNOVon 10-29-2024 CNOV Office Visit (CATHMN ) GOGO WARE ([id number]) 1940 F Date Time Provider Department 10/29/24 1:00 PM [facility] CATHMN During your visit today, we recorded the following information about you: Pulse Blood pressure Weight Height 65/minute 138/70 73.9 kg 1.651 m Kacy Jimenez, TEST WORKER.SHOT BLAST 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 10/29/2024 2:10 PM Signed [facility] [place] Pam López Department of Cardiovascular Medicine SECTION OF INTERVENTIONAL CARDIOLOGY OUTPATIENT VISIT DATE October 29, 2024 OUTPATIENT VISIT TYPE ESTABLISHED FOLLOW UP Primary State Trooper: Dr. Lindo Chief Complaint: Patient here for [...] first degree AVB Vent. rate 60 BPM MN interval 212 ms QRS duration 92 ms [...] Abs Lymph 1.00 - 4.00 k/uL 1.45 Iron% % 9.0 Abs Iron <0.87 k/uL 0.44 Eosin% % 2.7 Abs [...] Madhu: Cor (more content not included)... Normal [facility] CNOV Office Visit (CARTMN ) CHAZGOGO Stanford ([id number]) 1940 F Date Time Provider Department 10/29/24 [...] Essential (Primary) Hypertension Coronary Artery Disease Involving [place] Coronary Artery of [place] Heart With Angina Pectoris (Hcc) Insomnia Glaucoma [...] Prior to Admission medications as of 09/03/24 6565 Medication Sig Last Dose Taking valsartan (DIOVAN) [...] results withi (more content not included)... Normal [facility] Comprehensive metabolic 2000 panelon 10-29-2024 Albumin [Mass/Vol] 4.2 g/dL Normal 3.9-4.9 [facility] Comment on above: Order Comment: Speci men Type: BLOOD SPECIMEN Ordering Facility: [facility] Address: [address] [place] [address] Performed By: #### 2 4323-8, HSTNT, 78963-8 #### [facility] CLIA [id number] [address] [place] [address] [place] ALP [Catalytic activity/Vol] 65 U/L Normal 34-123 [facility] Comment on above: Order Comment: Speci men Type: BLOOD SPECIMEN Ordering Facility: [facility] Address: [address] [place], [place] [address] Performed By: #### 2 4323-8, HSTNT, 74484-8 #### [facility] CLIA [id number] [address] [place] [address] [place] ALT [Catalytic activity/Vol] 9 U/L Normal 7-38 [facility] Comment on above: Order Comment: Speci men Type: BLOOD SPECIMEN Ordering Facility: [facility] Address: [address] [place] [address] Performed By: #### 2 4323-8, HSTNT, 58110-8 #### [facility] CLIA [id number] [address] [place] [address] [place] Anion gap [Moles/Vol] 10 mmol/L Normal 8-15 [facility] Comment on above: Order Comment: Speci men Type: BLOOD SPECIMEN Ordering Facility: [facility] Address: [address] [place] [address] Performed By: #### 2 4323-8, HSTNT, 64304-7 #### [facility] CLIA [id number] [address] [place] [address] [place] AST [Catalytic activity/Vol] 38 U/L High 13-35 [facility] Comment on above: Order Comment: Speci men Type: BLOOD SPECIMEN Ordering Facility: [facility] Address: [address] [place] [address] Performed By: #### 2 4323-8, HSTNT, 15116-9 #### [facility] CLIA [id number] [address] [place] [address] [place] Bilirubin [Mass/Vol] 0.4 mg/dL Normal 0.2-1.3 [facility] Comment on above: Order Comment: Speci men Type: BLOOD SPECIMEN Ordering Facility: [facility] Address: [address] [place] [address] Performed By: #### 2 4323-8, HSTNT, 68507-1 #### [facility] CLIA [id number] [address] [place], [place] [address] [place] Calcium [Mass/Vol] 9.7 mg/dL Normal 8.5-10.2 [facility] Comment on above: Order Comment: Speci men Type: BLOOD SPECIMEN Ordering Facility: [facility] Address: [address] [place] [address] Performed By: #### 2 4323-8, HSTNT, 07959-5 #### [facility] CLIA [id number] [address] [place] [address] [place] Chloride [Moles/Vol] 106 mmol/L Normal 98-107 [facility] Comment on above: Order Comment: Speci men Type: BLOOD SPECIMEN Ordering Facility: [facility] Address: [address] [place] [address] Performed By: #### 2 4323-8, HSTNT, 55710-2 #### [facility] CLIA [id number] [address] [place] [address] [place] CO2 [Moles/Vol] 25 mmol/L Normal 22-30 [facility] Comment on above: Order Comment: Speci men Type: BLOOD SPECIMEN Ordering Facility: [facility] Address: [address] [place] [address] Performed By: #### 2 4323-8, HSTNT, 44932-3 #### [facility] CLIA [id number] [address] [place], [place] [address] [place] Creatinine [Mass/Vol] 0.84 mg/dL Normal 0.58-0.96 [facility] Comment on above: Order Comment: Speci men Type: BLOOD SPECIMEN Ordering Facility: [facility] Address: [address] [place] [address] Performed By: #### 2 4323-8, HSTNT, 02635-9 #### [facility] CLIA [id number] [address] [place] [address] [place] Creatinine and Glomerular filtration rate.predicted panel (S/P/Bld) 68 mL/min/1.73m??? Normal >=60 [facility] Comment on above: Order Comment: Terri mittal Type: BLOOD SPECIMEN Ordering Facility: [facility] Address: [address] [place] [address] Result Comment: Leanne mated Glomerular Filtration Rate [...] GFR. Performed By: #### 2 4323-8, HSTNT, 06183-7 #### [facility] CLIA [id number] [address] [place] [address] [place] Glucose [Mass/Vol] 114 mg/dL High 74-99 [facility] Comment on above: Order Comment: Terri mittal Type: BLOOD SPECIMEN Ordering Facility: [facility] Address: [address] [place] [address] Result Comment: The [place] Diabetes Association (ADA) provides guidance for cutoff [...] Standards of Medical Care in Diabetes 2016, [place] Diabetes Association. Diabetes Care. 2016.39(Suppl 1). Performed By: #### 2 4323-8, HSTNT, 02351-8 #### [facility] CLIA [id number] [address] [place] [address] [place] Potassium [Moles/Vol] 4.3 mmol/L Normal 3.7-5.1 [facility] Comment on above: Order Comment: Speci men Type: BLOOD SPECIMEN Ordering Facility: [facility] Address: [address] [place] [address] Performed By: #### 2 4323-8, HSTNT, 00433-3 #### [facility] CLIA [id number] [address] [place] [address] [place] Protein [Mass/Vol] 6.8 g/dL Normal 6.3-8.0 [facility] Comment on above: Order Comment: Speci men Type: BLOOD SPECIMEN Ordering Facility: [facility] Address: [address] [place] [address] Performed By: #### 2 4323-8, HSTNT, 57429-2 #### [facility] CLIA [id number] [address] [place] [address] [place] Sodium [Moles/Vol] 141 mmol/L Normal 136-144 [facility] Comment on above: Order Comment: Speci men Type: BLOOD SPECIMEN Ordering Facility: [facility] Address: [address] [place] [address] Performed By: #### 2 4323-8, HSTNT, 55441-1 #### [facility] CLIA [id number] [address] [place] [address] [place] Urea nitrogen [Mass/Vol] 20 mg/dL Normal 7-21 [facility] Comment on above: Order Comment: Speci men Type: BLOOD SPECIMEN Ordering Facility: [facility] Address: [address] [place] [address] Performed By: #### 2 4323-8, HSTNT, 91454-5 #### [facility] CLIA [id number] [address] [place] [address] [place] ECG COMPLETEon 10-29-2024 ECG COMPLETE Ventricular Rate : 6 0 BPM Atrial Rate : 60 BPM P-R Interval : 212 ms QRS Duration : 92 ms Q-T Interval : 420 ms QTC Calculation(Bazett) : 420 ms Calculated P Alexander : 85 degrees Calculated R Alexander : 12 degrees Calculated T Alexander : 77 degrees SINUS RHYTHM WITH 1ST DEGREE AV BLOCK OTHERWISE NORMAL ECG Confirmed by AZUL OSMAN MD (65) on 11/03/2024 9:17:13 PM NAME : GOGO WARE PID : [id number] : 1940 Gender : Female Race : ORD : [id number] Procedure Date : Oct 29 2024 09:16:04 Edit Date : Nov 03 2024 21:17:16 Diagnosis: SINUS RHYTHM WITH 1ST DEGREE AV BLOCK OTHERWISE NORMAL ECG Confirmed by AZUL OSMAN MD ([id number]) on 11/03/2024 9:17:13 PM Test Reason : Location : 314 : J14 J1-4 Overread By : AZUL OSMAN MD Edited By : AZUL OSMAN MD Referred By : LUBA LLANES Acquired by : MAYCOL LUCAS [facility] HIGH SENSITIVITY TROPONIN To n 10-29-2024 Troponin T.cardiac High sensitivity method [Mass/Vol] 17 ng/L High <12 [facility] Comment on above: Order Comment: Speci men Type: BLOOD SPECIMEN Ordering Facility: [facility] Address: [address] [place] [address] Performed By: #### 2 4323-8, HSTNT, 69609-3 #### [facility] CLIA [id number] [address] [place] [address] [place] LPa SerPl-mCncon 10-29-2024 Lipoprotein a [Mass/Vol] 14 mg/dL Normal <30 [facility] Comment on above: Order Comment: Speci men Type: BLOOD SPECIMEN Ordering Facility: [facility] Address: [address] [place] [address] Performed By: #### 1 0835-7 #### [facility] CLIA [id number] [address] [place] [address] [place] NT-proBNP SerPl-mCncon 10-29 Natriuretic peptide.B prohormone N-Terminal [Mass/Vol] 1804 pg/mL High <450 [facility] Comment on above: Order Comment: Terri mittal Type: BLOOD SPECIMEN Ordering Facility: [facility] Address: [address] [place] [address] Performed By: #### 2 4323-8, HSTNT, 83869-5 #### [facility] CLIA [id number] [address] [place], [place] [address] [place] [address] [place] PT panel Coag (PPP)on 2024 INR Coag (PPP) [Relative time] 1.1 {INR} Normal 0.9-1.3 [facility] Comment on above: Order Comment: Terri mittal Type: BLOOD SPECIMEN Ordering Facility: [facility] Address: [address] [place] [address] Result Comment: Shu min K Antagonist (VKA) Therapeutic Range: INR 2 to 3 (Target INR of 2.5) Note: For patients treated with VKA drugs, such as warfarin, the [place] [employer] 2012 Guideline recommends [...] to 3.5 (target INR of 3). Yo JIN, et al. Chest 2012, 141:7S-47S Juan R RA, et al. JACC 2017, 70: 252-289 Performed By: #### 2 4323-8, 98646-7 #### [facility] CLIA [id number] [address] [place], [place] [address] [place] [address] [place] PT Coag (PPP) [Time] 11.4 s Normal 9.7-13.0 [facility] Comment on above: Order Comment: Speci men Type: BLOOD SPECIMEN Ordering Facility: [facility] Address: [address] [place] [address] Performed By: #### 2 4323-8, 09658-6 #### [facility] CLIA [id number] [address] [place], [place] [address] [address] [place] TYPE AND SCREEN,30 DAYon ABO AB Normal [facility] Comment on above: Order Comment: Speci men Type: BLOOD SPECIMENOrdering Facility: [facility] Address: [address] [place] [address] Performed By: #### T SCR30 ####[facility] [id number] [address] Rh Nom (Bld) Positive Normal [facility] Comment on above: Order Comment: Speci men Type: BLOOD SPECIMENOrdering Facility: [facility] Address: [address] [place] [address] Performed By: #### T SCR30 ####[facility] [id number] [address] [place] XR CHEST 2V FRONTAL/LATon [...] thoracic spine. IMPRESSION: No acute radiographic abnormality. Finisher Brush: PSCHien Transcribe Date/Time: Oct 29 2024 10:42A Dictated by : LAURA CARPIO MD This examination was interpreted and the report reviewed and electronically signed by: ANGIE ELKINS MD on Oct 29 2024 11:28AM EST [id number] Normal [facility] XR Chest PA and Lateralon Radiology Study observation (narrative) [facility] IMPRESSION: No acute radiographic abnormality. Finisher Brush: [facility] Transcribe Date/Time: Oct 29 2024 10:42A Dictated [...] spine. IMPRESSION IMPRESSION: No acute radiographic abnormality. Finisher Brush: PSCB Transcribe Date/Time: Oct 29 2024 10:42A Dictated by : LAURA CARPIO MD This examination was interpreted and the report reviewed and electronically signed by: ANGIE ELKINS MD on Oct 29 2024 11:28AM EST [facility] XR Chest PA and LateralOrder ed By: Ccf Provider on 10-29-2024 [facility] 22-SC-Isllfov DOrdered By: Lizette Huddleston on 10-01-2024 Vitamin D 25-Hydroxy 22.4 ng/mL [facility] Comment on above: Vitamin D 25(OH) Sta tus Range Deficiency <20 ng/mL (50nmol/L) Insufficiency 20 - 30 ng/mL (50 - 75 nmol/L) Sufficiency 30 - 100 ng/mL (75 - 250 nmol/L) Toxicity >100 ng/mL (>250 nmol/L) Absolute neutrophil countOrd ered By: Eh Huddleston on 10-01-2024 Neutrophils (Bld) [#/Vol] 4.2 10*3/uL 2.0-7.7 [facility] Albumin to globulin ratioOrd ered By: Eh Huddleston on 10-01-2024 Albumin/Globulin [Mass ratio] 1.0 {ratio} 0.9-2.4 [facility] Basophil percentageOrdered B y: Eh Huddleston on 10-01-2024 Basophils/100 WBC (Bld) 0.5 % 0-1 [facility] Bilirubin, totalOrdered By: Eh Huddleston on 10-01-2024 Bilirubin [Mass/Vol] 0.50 mg/dL 0.20-1.00 [facility] Comment on above: For patients on eltr ombopag therapy, use of Dimension [place] TBIL is not recommended. Blood urea nitrogen (BUN)/cr eatinine ratioOrdered By: Eh Huddleston on 10-01-2024 Urea nitrogen/Creatinine [Mass ratio] 22.1 mg/mg High 10- [facility] CBC W/Diff, Automatedon Absolute Lymph 1.61 X10 3/uL Normal 0.83-4.51 [facility] Comment on above: Performed By: #### L 100.0100, L500.4050, L501.9520, L500.4100, L506.1000 ####[facility] [address] [place], [address] Absolute Neut 4.2 X10 3/uL Normal 2.0-7.7 [facility] Comment on above: Performed By: #### L 100.0100, L500.4050, L501.9520, L500.4100, L506.1000 ####[facility] [address] [place], [address] Basophils/100 WBC (Bld) 0.5 % Normal 0-1 [facility] Comment on above: Performed By: #### L 100.0100, L500.4050, L501.9520, L500.4100, L506.1000 ####[facility] [address] [place], [address] Eosinophils/100 WBC (Bld) 2.0 % Normal 0-5 [facility] Comment on above: Performed By: #### L 100.0100, L500.4050, L501.9520, L500.4100, L506.1000 ####[facility] [address] [place], [address] Erythrocyte distribution width (RBC) [Ratio] 13.2 % Normal 11.6-14.6 [facility] Comment on above: Performed By: #### L 100.0100, L500.4050, L501.9520, L500.4100, L506.1000 ####[facility] [address] [place], [address] Hematocrit (Bld) [Volume fraction] 38.6 % Normal 37-47 [facility] Comment on above: Performed By: #### L 100.0100, L500.4050, L501.9520, L500.4100, L506.1000 ####[facility] [address] [place], [address] Hemoglobin (Bld) [Mass/Vol] 12.6 g/dL Normal 12.0-15.0 [facility] Comment on above: Performed By: #### L 100.0100, L500.4050, L501.9520, L500.4100, L506.1000 ####[facility] [address] [place], [address] IG% 0.200 Normal 0.0-0.9 [facility] Comment on above: Result Comment: IG% - Immature Granulocytes (promyelocytes, myelocytes andmetamyelocytes) > 1% indicates that a LEFT SHIFT is Present. Performed By: #### L 100.0100, L500.4050, L501.9520, L500.4100, L506.1000 ####[facility] [address] [place], [address] Lymphocytes/100 WBC (Bld) 25.0 % Normal 19-41 [facility] Comment on above: Performed By: #### L 100.0100, L500.4050, L501.9520, L500.4100, L506.1000 ####[facility] [address] [place], [address] MCH (RBC) [Entitic mass] 30.9 pg Normal 27.0-32.0 [facility] Comment on above: Performed By: #### L 100.0100, L500.4050, L501.9520, L500.4100, L506.1000 ####[facility] [address] [place], [address] MCHC (RBC) [Mass/Vol] 32.6 g/dL Normal 32-36 [facility] Comment on above: Performed By: #### L 100.0100, L500.4050, L501.9520, L500.4100, L506.1000 ####[facility] [address] [place], [address] MCV (RBC) [Entitic vol] 94.6 fL Normal 81-99 [facility] Comment on above: Performed By: #### L 100.0100, L500.4050, L501.9520, L500.4100, L506.1000 ####[facility] [address] [place], [address] Monocytes/100 WBC (Bld) 6.8 % Normal 0-10 [facility] Comment on above: Performed By: #### L 100.0100, L500.4050, L501.9520, L500.4100, L506.1000 ####[facility] [address] [place], [address] Neutrophils/100 WBC (Bld) 65.5 % Normal 47-70 [facility] Comment on above: Performed By: #### L 100.0100, L500.4050, L501.9520, L500.4100, L506.1000 ####[facility] [address] [place], [address] Nucleated RBC (Bld) [#/Vol] 0 10*3/uL Normal 0-5 [facility] Comment on above: Performed By: #### L 100.0100, L500.4050, L501.9520, L500.4100, L506.1000 ####[facility] [address] [place], [address] Platelet mean volume (Bld) [Entitic vol] 10.6 fL Normal 6.2-12.0 [facility] Comment on above: Performed By: #### L 100.0100, L500.4050, L501.9520, L500.4100, L506.1000 ####[facility] [address] [place], [address] Platelets (Bld) [#/Vol] 187 10*3/uL Normal 150-450 [facility] Comment on above: Performed By: #### L 100.0100, L500.4050, L501.9520, L500.4100, L506.1000 ####[facility] [address] [place], [address] RBC (Bld) [#/Vol] 4.08 10*6/uL Low 4.2-5.4 [facility] Comment on above: Performed By: #### L 100.0100, L500.4050, L501.9520, L500.4100, L506.1000 ####[facility] [address] [place], [address] RDW SD 46.2 fl High 35.1-43.9 [facility] Comment on above: Performed By: #### L 100.0100, L500.4050, L501.9520, L500.4100, L506.1000 ####[facility] [address] [place], [address] WBC (Bld) [#/Vol] 6.4 10*3/uL Normal 4.4-11.0 [facility] Comment on above: Performed By: #### L 100.0100, L500.4050, L501.9520, L500.4100, L506.1000 ####[facility] [address] [place], [address] Carbon dioxide measurementOr dered By: Eh Huddleston on 10-01-2024 CO2 [Moles/Vol] 27.0 mmol/L 21.0-32.0 [facility] Chloride measurementOrdered By: Eh Huddleston on 10-01-2024 Chloride [Moles/Vol] 108 mmol/L High 98-107 [facility] Comprehensive Metabolic Prof ilon 10-01-2024 Albumin [Mass/Vol] 3.8 g/dL Normal 3.2-5.0 [facility] Comment on above: Performed By: #### L 100.0100, L500.4050, L501.9520, L500.4100, L506.1000 ####[facility] [address] [place], [address] Albumin/Globulin [Mass ratio] 1.0 {ratio} Normal 0.9-2.4 [facility] Comment on above: Performed By: #### L 100.0100, L500.4050, L501.9520, L500.4100, L506.1000 ####[facility] [address] [place], [address] ALK P 67 U/L Normal 45-117 [facility] Comment on above: Performed By: #### L 100.0100, L500.4050, L501.9520, L500.4100, L506.1000 ####[facility] [address] [place], [address] ALT [Catalytic activity/Vol] 15 U/L Normal 13-56 [facility] Comment on above: Performed By: #### L 100.0100, L500.4050, L501.9520, L500.4100, L506.1000 ####[facility] [address] [place], [address] AST [Catalytic activity/Vol] 44 U/L High 15-37 [facility] Comment on above: Performed By: #### L 100.0100, L500.4050, L501.9520, L500.4100, L506.1000 ####[facility] [address] [place], [address] Bilirubin [Mass/Vol] 0.50 mg/dL Normal 0.20-1.00 [facility] Comment on above: Result Comment: For patients on eltrombopag therapy, use of Dimension [place] TBIL is not recommended. Performed By: #### L 100.0100, L500.4050, L501.9520, L500.4100, L506.1000 ####[facility] [address] [place], [address] BUN/CRE 22.1 RATIO High 10-20 [facility] Comment on above: Performed By: #### L 100.0100, L500.4050, L501.9520, L500.4100, L506.1000 ####[facility] [address] [place], [address] CA,Total 9.4 mg/dL Normal 8.5-10.1 [facility] Comment on above: Performed By: #### L 100.0100, L500.4050, L501.9520, L500.4100, L506.1000 ####[facility] [address] [place], [address] Chloride [Moles/Vol] 108 mmol/L High 98-107 [facility] Comment on above: Performed By: #### L 100.0100, L500.4050, L501.9520, L500.4100, L506.1000 ####[facility] [address] [place], [address] CO2 [Moles/Vol] 27.0 mmol/L Normal 21.0-32.0 [facility] Comment on above: Performed By: #### L 100.0100, L500.4050, L501.9520, L500.4100, L506.1000 ####[facility] [address] [place], [address] Creatinine [Mass/Vol] 0.90 mg/dL Normal 0.55-1.02 [facility] Comment on above: Result Comment: The validity of the calculated GFR GFRAA in patients over70 years has not been determined. Clinical correlation isessential. Performed By: #### L 100.0100, L500.4050, L501.9520, L500.4100, L506.1000 ####[facility] [address] [place], [address] EST GFR - AA 76 mL/min Normal >60 [facility] Comment on above: Result Comment: Afri can Malaysian GFR Calc Performed By: #### L 100.0100, L500.4050, L501.9520, L500.4100, L506.1000 ####[facility] [address] [place], [address] GAP 4 Low 5-15 [facility] Comment on above: Performed By: #### L 100.0100, L500.4050, L501.9520, L500.4100, L506.1000 ####[facility] [address] [place], [address] GFR/1.73 sq M.predicted among non-blacks MDRD (S/P/Bld) [Vol rate/Area] 63 mL/min/{1.73_m2} Normal >60 [facility] Comment on above: Result Comment: Non- GFR Calc Performed By: #### L 100.0100, L500.4050, L501.9520, L500.4100, L506.1000 ####[facility] [address] [place], [address] Globulin (S) [Mass/Vol] 3.7 g/dL Normal 2.2-4.2 [facility] Comment on above: Performed By: #### L 100.0100, L500.4050, L501.9520, L500.4100, L506.1000 ####[facility] [address] [place], [address] Glucose [Mass/Vol] 103 mg/dL Normal 74-106 [facility] Comment on above: Result Comment: Fast ing Glucose result from 100 to 125 mg/dLsuggests IMPAIRED HOMEOSTASIS per A.D.A. criteria. Performed By: #### L 100.0100, L500.4050, L501.9520, L500.4100, L506.1000 ####[facility] [address] [place], [address] Potassium [Moles/Vol] 4.4 mmol/L Normal 3.5-5.1 [facility] Comment on above: Performed By: #### L 100.0100, L500.4050, L501.9520, L500.4100, L506.1000 ####[facility] [address] [place], [address] Sodium [Moles/Vol] 139 mmol/L Normal 136-145 [facility] Comment on above: Performed By: #### L 100.0100, L500.4050, L501.9520, L500.4100, L506.1000 ####[facility] [address] [place], [address] T PROT 7.5 g/dL Normal 6.4-8.2 [facility] Comment on above: Performed By: #### L 100.0100, L500.4050, L501.9520, L500.4100, L506.1000 ####[facility] [address] [place], [address] Urea nitrogen [Mass/Vol] 20 mg/dL High 7-18 [facility] Comment on above: Performed By: #### L 100.0100, L500.4050, L501.9520, L500.4100, L506.1000 ####[facility] [address] [place], [address] Eosinophil percentageOrdered By: Eh Huddleston on 10-01-2024 Eosinophils/100 WBC (Bld) 2.0 % 0-5 [facility] Erythrocyte distribution wid th ratioOrdered By: Eh Huddleston on 10-01-2024 Erythrocyte distribution width (RBC) [Ratio] 13.2 % 11.6-14.6 [facility] Erythrocyte distribution wid th standard deviationOrdered By: Eh Huddleston on 10-01-2024 Erythrocyte distribution width (RBC) [Entitic vol] 46.2 fL High 35.1-43.9 [facility] Estimated glomerular filtrat ion rate (GFR) AmericanOrdered By: Eh Flaquito on 10-01-2024 Estimated GFR (MDRD) Amer 76 mL/min >60 [facility] Comment on above: GFR Calc Glomerular filtration rate ( GFR) estimationOrdered By: Eh Huddleston on 10-01-2024 Estimated GFR (MDRD) Non-Af Amer 63 mL/min >60 [facility] Comment on above: Non- GFR Calc Glucose measurementOrdered B y: Eh Huddleston on 10-01-2024 Glucose [Mass/Vol] 103 mg/dL 74-106 [facility] Comment on above: Fasting Glucose resu lt from 100 to 125 mg/dL suggests IMPAIRED HOMEOSTASIS per A.D.A. criteria. Hematocrit Auto (Bld) [Volum e fraction]Ordered By: Eh Huddleston 10-01-2024 Hematocrit (Bld) [Volume fraction] 38.6 % 37-47 [facility] Hemoglobin measurementOrdere d By: Eh Huddleston 10-01-2024 Hemoglobin (Bld) [Mass/Vol] 12.6 g/dL 12.0-15.0 [facility] High density lipoprotein (HD L) measurementOrdered By: [facility] 10-01-2024 Cholesterol in HDL [Mass/Vol] 91 mg/dL >40 [facility] Comment on above: The drugs N-Acetylcy steine and Metamizole may falsely depress this assay. Reference Range HDL <40 mg/dL Low HDL Cholesterol HDL >or= 60 mg/dL High HDL Cholesterol Immature granulocytes/100 WB C Auto (Bld)Ordered By: Eh Huddleston on 10-01-2024 Immature granulocytes/100 WBC (Bld) 0.200 % 0.0-0.9 [facility] Comment on above: IG% - Immature Granu locytes (promyelocytes, myelocytes and metamyelocytes) > 1% indicates that a LEFT SHIFT is Present. Laboratory - Chemistry and C hemistry - challengeOrdered By: Eh Huddleston on 10-01-2024 AST [Catalytic activity/Vol] 44 U/L High 15-37 [facility] Lipid Profileon 10-01-2024 Cholesterol [Mass/Vol] 169 mg/dL Normal 200 [facility] Comment on above: Result Comment: <200 mg/dL Desirable 200-240 mg/dL Borderline >240 mg/dL High Risk Performed By: #### L 100.0100, L500.4050, L501.9520, L500.4100, L506.1000 ####[facility] [address] [place], [address] Cholesterol in HDL [Mass/Vol] 91 mg/dL Normal [facility] Comment on above: Result Comment: The drugs N-Acetylcysteine and Metamizole may falselydepress this assay. Reference Range HDL <40 mg/dL Low HDL Cholesterol HDL >or= 60 mg/dL High HDL Cholesterol Performed By: #### L 100.0100, L500.4050, L501.9520, L500.4100, L506.1000 ####[facility] [address] [place], [address] Cholesterol in LDL [Mass/Vol] 61 mg/dL Normal 0-130 [facility] Comment on above: Performed By: #### L 100.0100, L500.4050, L501.9520, L500.4100, L506.1000 ####[facility] [address] [place], [address] Cholesterol in VLDL [Mass/Vol] 17 mg/dL Normal 5-40 [facility] Comment on above: Performed By: #### L 100.0100, L500.4050, L501.9520, L500.4100, L506.1000 ####[facility] [address] [place], [address] Triglyceride [Mass/Vol] 87 mg/dL Normal [facility] Comment on above: Result Comment: The drugs N-Acetylcysteine and Metamizole may falselydepress this assay.Serum Triglycerides Reference Interval Normal <150 mg/dL Borderline high 150 - 199 mg/dL High 200 - 499 mg/dL Very High > or = 500 mg/dL Performed By: #### L 100.0100, L500.4050, L501.9520, L500.4100, L506.1000 ####[facility] [address] [place], [address] Low density lipoprotein (LDL ) cholesterol measurementOrdered By: Eh Huddleston on 10-01-2024 Cholesterol in LDL [Mass/Vol] 61 mg/dL 0-130 [facility] Lymphocytes Auto (Unsp spec) [#/Vol]Ordered By: Eh Huddleston on 10-01-2024 Lymphocytes (Bld) [#/Vol] 1.61 10*3/uL 0.83-4.51 [facility] Lymphocytes/100 WBC Auto (Un sp spec)Ordered By: Eh Huddleston on 10-01-2024 Lymphocytes/100 WBC (Bld) 25.0 % 19-41 [facility] MCV (mean corpuscular volume ) determinationOrdered By: Eh Huddleston on 10-01-2024 MCV (RBC) [Entitic vol] 94.6 fL 81-99 [facility] Mean corpuscular hemoglobin (MCH) determinationOrdered By: Eh Huddleston on 10-01-2024 MCH (RBC) [Entitic mass] 30.9 pg 27.0-32.0 [facility] Mean corpuscular hemoglobin concentration (MCHC) determinationOrdered By: Eh Huddleston on 10-01-2024 MCHC (RBC) [Mass/Vol] 32.6 g/dL 32-36 [facility] Mean platelet volume determi nationOrdered By: Eh Huddleston on 10-01-2024 Platelet mean volume (Bld) [Entitic vol] 10.6 fL 6.2-12.0 [facility] Monocyte percentageOrdered B y: Eh Huddleston on 10-01-2024 Monocytes/100 WBC (Bld) 6.8 % 0-10 [facility] Neutrophil percentageOrdered By: Eh Huddleston on 10-01-2024 Neutrophils/100 WBC (Bld) 65.5 % 47-70 [facility] Nucleated red blood cell per centageOrdered By: Eh Huddleston on 10-01-2024 Nucleated RBC/100 WBC (Bld) [Ratio] 0 % 0-5 [facility] Platelet countOrdered By: Collin Huddleston on 10-01-2024 Platelets (Bld) [#/Vol] 187 10*3/uL 150-450 [facility] Potassium measurementOrdered By: Eh Huddleston 10-01-2024 Potassium [Moles/Vol] 4.4 mmol/L 3.5-5.1 [facility] RBC Auto (Bld) [#/Vol]Ordere d By: Eh Huddleston on 10-01-2024 RBC (Bld) [#/Vol] 4.08 10*6/uL Low 4.2-5.4 [facility] Serum anion gap measurementO rdered By: Eh Huddleston on 10-01-2024 Anion gap [Moles/Vol] 4 mmol/L Low 5-15 [facility] Serum globulin measurementOr dered By: Eh Huddleston 10-01-2024 Globulin (S) [Mass/Vol] 3.7 g/dL 2.2-4.2 [facility] Serum or plasma alanine woodall otransferase (ALT) measurementOrdered By: Eh Huddleston 10-01-2024 ALT [Catalytic activity/Vol] 15 U/L 13-56 [facility] Serum or plasma albumin susy urement (mass/volume)Ordered By: Eh Huddleston 10-01-2024 Albumin [Mass/Vol] 3.8 g/dL 3.2-5.0 [facility] Serum or plasma alkaline taisha sphatase measurementOrdered By: Eh Huddleston 10-01-2024 ALP [Catalytic activity/Vol] 67 U/L 45-117 [facility] Serum or plasma calcium susy urement (mass/volume)Ordered By: Eh Huddleston 10-01-2024 Calcium [Mass/Vol] 9.4 mg/dL 8.5-10.1 [facility] Serum or plasma cholesterol measurement (mass/volume)Ordered By: Eh Huddleston on 10-01-2024 Cholesterol [Mass/Vol] 169 mg/dL <200 [facility] Comment on above: <200 mg/dL Desirable 200-240 mg/dL Borderline >240 mg/dL High Risk Serum or plasma creatinine m easurement (mass/volume)Ordered By: Eh Huddleston on 10-01-2024 Creatinine [Mass/Vol] 0.90 mg/dL 0.55-1.02 [facility] Comment on above: The validity of the calculated GFR & GFRAA in patients over 70 years has not been determined. Clinical correlation is essential. Serum or plasma urea nitroge n measurement (mass/volume)Ordered By: Eh Huddleston on 10-01-2024 Urea nitrogen [Mass/Vol] 20 mg/dL High 7-18 [facility] Sodium levelOrdered By: Eh Huddleston on 10-01-2024 Sodium [Moles/Vol] 139 mmol/L 136-145 [facility] TSH QnOrdered By: Eh Huddleston o n 10-01-2024 Thyroid Stimulating Hormone (TSH) 1.540 uIU/mL 0.358-3.74 0 [facility] Thyroid Stim Hormone (TSH)on 10-01-2024 TSH 1.540 uIU/mL Normal 0.358-3.74 0 [facility] Comment on above: Performed By: #### L 100.0100, L500.4050, L501.9520, L500.4100, L506.1000 ####[facility] [address] [place], [place], [id number] Total proteinOrdered By: Eh Huddleston on 10-01-2024 Protein [Mass/Vol] 7.5 g/dL 6.4-8.2 [facility] Triglycerides measurementOrd ered By: Eh Huddleston on 10-01-2024 Triglyceride [Mass/Vol] 87 mg/dL <199 [facility] Comment on above: The drugs N-Acetylcy steine and Metamizole may falsely depress this assay.Serum Triglycerides Reference Interval Normal <150 mg/dL Borderline high 150 - 199 mg/dL High 200 - 499 mg/dL Very High > or = 500 mg/dL Very low density lipoprotein (VLDL) cholesterol measurementOrdered By: Eh Huddleston on 10-01-2024 VLDL Cholesterol 17 mg/dL 5-40 [facility] Vitamin D,25 Hydroxyon 10-01 Vitamin D 25-OH 22.4 ng/mL Normal [facility] Comment on above: Result Comment: Shu min D 25(OH) Status Range Deficiency <20 ng/mL (50nmol/L) Insufficiency 20 - 30 ng/mL (50 - 75 nmol/L) Sufficiency 30 - 100 ng/mL (75 - 250 nmol/L) Toxicity >100 ng/mL (>250 nmol/L) Performed By: #### L 100.0100, L500.4050, L501.9520, L500.4100, L506.1000 ####[facility] [address] [place], [address] White blood cell (WBC) count Ordered By: Eh Huddleston on 10-01-2024 WBC (Bld) [#/Vol] 6.4 10*3/uL 4.4-11.0 [facility] 09-16-2024 CNPN Telephone (CARLENE) GOGO WARE ([id number]) 1940 F Date Time Provider Department 09/16/24 GREG NASH [facility] During your visit today, we recorded the following information about you: Greg Nash APRN.ADMINISTRATIVE TECH 09/16/2024 8:31 AM Signed Allergies As of Date: 09/16/2024 (No Known Allergies) Date Reviewed: 09/03/2024 Reviewed by: Emi Loya, FORTINO - Fully Assessed Reason for Visit: Dental [...] hypertension [I10] 09/09/2017 Coronary artery disease involving nikolai guo*04/07/2024 Insomnia [G47.00] 04/07/2024 Glaucoma [H40.9] 04/07/2024 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 Arteaga Gogo Ware is from [place] where she lives alone. Patient states that [...] coronary art (more content not included)... Normal [facility] CNOV Office Visit (TOMN ) GOGO WARE ([id number]) 1940 F Date Time Provider Department 09/09/24 1:30 PM [facility] During your visit today, we recorded the following information about you: Genoveva Arteaga MD 09/09/2024 3:51 PM Signed [facility] [place] [facility] Template ID: [id number] SERVICE DATE: 09/09/2024 SERVICE TIME: 3:12 PM [...] hypertension [I10] 09/09/2017 Coronary artery disease involving nikolai guo*04/07/2024 Insomnia [G47.00] 04/07/2024 Glaucoma [H40.9] 04/07/2024 Severe aortic stenosis by prior echocardiogram *04/07/2024 Level of Service: OFFICE/OUTPATIENT NEW LOW [facility] 30 MINUTES [58922] LOS History for Encounter Level of Service: OFFICE/OUTPATIENT ESTABLISHED MOD [facility] 30 MIN[20361] Date AND Time: 09-09-2024 3:51 PM Recorded by User: GENOVEVA ARTEAGA Encounter Status:Closed by GENOVEVA ARTEAGA on 09/09/24 Normal [facility] CARDIAC AMYLOID SPECT/recreation programmer n 09-09-2024 NM CARDIAC AMYLOID SPECT/CT * * *Final Report* * * DATE OF EXAM: Sep 09 2024 3:40PM [facility] 0847 - [place] CARDIAC AMYLOID SPECT/CT / PROCEDURE REASON: multiple diagnoses * * * * Physician Interpretation * * * * NM CTAC Report: [facility] Date of service: 09/09/2024 3:11:26 PM CTAC [...] pathologic assessment as appropriate. Nuclear Med Report: [id number] PLANAR and SPECT: Myocardial imaging of the chest with CT attenuation correction was performed at 3 hours post IV injection of Tc-99m Pyrophosphate. See administered doses below. 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 Interpreting [...] * * Final * * * RP Finisher Brush: NIK Transcribe Date/Time: Sep 09 2024 3:11P Dictated by : SYDNEE HARVEY MD This examination was interpreted and the report reviewed and electronically signed by: SYDNEE HARVEY MD on Sep 09 2024 3:56PM EST [id number] Normal [facility] SPECT Heart for infarct W Tc -99m PYP Marifer 09-09-2024 * * *Final Report* * * DATE OF EXAM: Sep 09 2024 3:40PM [facility] 0847 - [place] CARDIAC AMYLOID SPECT/CT / PROCEDURE REASON: multiple diagnoses * * * * Physician Interpretation * * * * NM CTA Report: [facility] [place] Date of service: 09/09/2024 3:11:26 PM CTAC [...] pathologic assessment as appropriate. Nuclear Med Report: [id number] PLANAR and SPECT: Myocardial imaging of the chest with CT attenuation correction was performed at 3 hours post IV injection of Tc-99m Pyrophosphate. See administered doses below. 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 Interpreting [...] * * * Final * * * Finisher Brush: NIK Transcrikavya Date/Time: Sep 09 2024 3:11P Dictated by : SYDNEE HARVEY MD This examination was interpreted and the report reviewed and electronically signed by: SYDNEE HARVEY MD on Sep 09 2024 3:56PM [facility] DIVISION OF RADIOLOGY Provider, [facility] Eliud [facility] - 09/09/2024 * * *Final Report* * * DATE OF EXAM: Sep 09 2024 3:40PM [facility] 0847 - [place] CARDIAC AMYLOID SPECT/CT / PROCEDURE REASON: multiple diagnoses * * * * Physician Interpretation * * * * NM CTAC Report: [facility] Date of service: 09/09/2024 3:11:26 PM CTAC [...] pathologic assessment as appropriate. Nuclear Med Report: [id number] PLANAR and SPECT: Myocardial imaging of the chest with CT attenuation correction was performed at 3 hours post IV injection of Tc-99m Pyrophosphate. See administered doses below. 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 Interpreting [...] * * Final * * * RP Finisher Brush: NIK Transcribe Date/Time: Sep 09 2024 3:11P Dictated by : SYDNEE HARVEY MD This examination was interpreted and the report reviewed and electronically signed by: SYDNEE HARVEY MD on Sep 09 2024 3:56PM EST [facility] Radiology Study observation (narrative) [facility] SPECT Heart for infarct W Tc -99m PYP IVOrdered By: [facility] Provider on 09-09-2024 [facility] CARD CATH DIAGNOSTICon 09-03 CARD CATH DIAGNOSTIC Site Id: CC Lab #: [facility] HVI Senior Marketing Manager 4 Study Date: 09/03/2024 Start Time: 09/03/2024 [...] x 110cm [employer] Coronary Angiographic Diagnostic Catheter, [place] Radial TIG 4.0, 1 side hole, 0.038in [...] On: 09/04/2024 at 6:44:50 PM Final CC [employer] Medical Image : [id number] See Link below for Image Normal [facility] 09-02-2024 CNPN Telephone (CATLMN) GOGO WARE ([id number]) 1940 F Date Time Provider Department 09/02/24 ODILON WELLS During your visit today, we recorded the following information about you: Trinity Dawkins RN 09/02/2024 1:25 PM Signed CARDIOVASCULAR LAB [...] Dawkins RN, RN. In Department of CARDIOLOGY. Allergies [...] hypertension [I10] 09/09/2017 Coronary artery disease involving nikolai guo*04/07/2024 Insomnia [G47.00] 04/07/2024 Glaucoma [H40.9] 04/07/2024 Severe aortic stenosis by prior echocardiogram *04/07/2024 Encounter Status:Closed by TRINITY DAWKINS RN on 09/02/24 Normal [facility] CBC W Auto Differential pane l (Bld)on 08-31-2024 Basophils (Bld) [#/Vol] 10*3/uL Normal <0.11 [facility] Comment on above: Order Comment: Speci men Type: BLOOD SPECIMENOrdering Facility: [facility] Address: [address] [place] [address] [place] [address] Performed By: #### 5 7021-8 ####[facility] LABCLIA [id number] [place] [address] [place] Basophils/100 WBC (Bld) 0.3 % Normal [facility] Comment on above: Order Comment: Speci men Type: BLOOD SPECIMENOrdering Facility: [facility] Address: [address] [place] [address] Performed By: #### 5 7021-8 ####[facility] LABCLIA [id number] [place] [address] [place] Differential cell count method Nom (Bld) Auto Normal [facility] Comment on above: Order Comment: Speci men Type: BLOOD SPECIMENOrdering Facility: [facility] Address: [address] [place] [address] Performed By: #### 5 7021-8 ####[facility] LABCLIA [id number] [place] [address] [place] Eosinophils (Bld) [#/Vol] 0.11 10*3/uL Normal <0.46 [facility] Comment on above: Order Comment: Speci men Type: BLOOD SPECIMENOrdering Facility: [facility] Address: [address] [place] [address] Performed By: #### 5 7021-8 ####[facility] LABCLIA [id number] [place] [address] [place] Eosinophils/100 WBC (Bld) 1.7 % Normal [facility] Comment on above: Order Comment: Speci men Type: BLOOD SPECIMENOrdering Facility: [facility] Address: [address] [place] [address] Performed By: #### 5 7021-8 ####[facility] LABCLIA [id number] [place] [address] [place] Erythrocyte distribution width (RBC) [Ratio] 13.3 % Normal 11.5-15.0 [facility] Comment on above: Order Comment: Speci men Type: BLOOD SPECIMENOrdering Facility: [facility] Address: [address] [place] [address] Performed By: #### 5 7021-8 ####[facility] LABCLIA [id number] [place] [address] [place] Hematocrit (Bld) [Volume fraction] 38.1 % Normal 36.0-46.0 [facility] Comment on above: Order Comment: Speci men Type: BLOOD SPECIMENOrdering Facility: [facility] Address: [address] [place] [address] Performed By: #### 5 7021-8 ####[facility] LABCLIA [id number] [place] [address] [place] Hemoglobin (Bld) [Mass/Vol] 12.5 g/dL Normal 11.5-15.5 [facility] Comment on above: Order Comment: Speci men Type: BLOOD SPECIMENOrdering Facility: [facility] Address: [address] [place] [address] Performed By: #### 5 7021-8 ####[facility] [id number] [place] [address] [place] Immature granulocytes (Bld) [#/Vol] 10*3/uL Normal <0.10 [facility] Comment on above: Order Comment: Speci men Type: BLOOD SPECIMENOrdering Facility: [facility] Address: [address] [place] [address] Performed By: #### 5 7021-8 ####[facility] [id number] [place] [address] [place] Immature granulocytes/100 WBC (Bld) 0.2 % Normal [facility] Comment on above: Order Comment: Speci men Type: BLOOD SPECIMENOrdering Facility: [facility] Address: [address] [place] [address] Performed By: #### 5 7021-8 ####[facility] [id number] [place] [address] [place] Lymphocytes (Bld) [#/Vol] 1.90 10*3/uL Normal 1.00-4.00 [facility] Comment on above: Order Comment: Speci men Type: BLOOD SPECIMENOrdering Facility: [facility] Address: [address] [place] [address] Performed By: #### 5 7021-8 ####[facility] [id number] [place] [address] [place] Lymphocytes/100 WBC (Bld) 30.2 % Normal [facility] Comment on above: Order Comment: Speci men Type: BLOOD SPECIMENOrdering Facility: [facility] Address: [address] [place] [address] Performed By: #### 5 7021-8 ####[facility] [id number] [place] [address] [place] MCH (RBC) [Entitic mass] 31.1 pg Normal 26.0-34.0 [facility] Comment on above: Order Comment: Speci men Type: BLOOD SPECIMENOrdering Facility: [facility] Address: [address] [place] [address] Performed By: #### 5 7021-8 ####[facility] [id number] [place] [address] [place] MCHC (RBC) [Mass/Vol] 32.8 g/dL Normal 30.5-36.0 [facility] Comment on above: Order Comment: Speci men Type: BLOOD SPECIMENOrdering Facility: [facility] Address: [address] [place] [address] Performed By: #### 5 7021-8 ####[facility] [id number] [place] [address] [place] MCV (RBC) [Entitic vol] 94.8 fL Normal 80.0-100.0 [facility] Comment on above: Order Comment: Speci men Type: BLOOD SPECIMENOrdering Facility: [facility] Address: [address] [place] [address] Performed By: #### 5 7021-8 ####[facility] [id number] [place] [address] [place] Monocytes (Bld) [#/Vol] 0.54 10*3/uL Normal <0.87 [facility] Comment on above: Order Comment: Speci men Type: BLOOD SPECIMENOrdering Facility: [facility] Address: [address] [place] [address] Performed By: #### 5 7021-8 ####[facility] [id number] [place] [address] [place] Monocytes/100 WBC (Bld) 8.6 % Normal [facility] Comment on above: Order Comment: Speci men Type: BLOOD SPECIMENOrdering Facility: [facility] Address: [address] [place] [address] Performed By: #### 5 7021-8 ####[facility] [id number] [place] [address] [place] Neutrophils (Bld) [#/Vol] 3.72 10*3/uL Normal 1.45-7.50 [facility] Comment on above: Order Comment: Speci men Type: BLOOD SPECIMENOrdering Facility: [facility] Address: [address] [place] [address] Performed By: #### 5 7021-8 ####[facility] [id number] [place] [address] [place] Neutrophils/100 WBC (Bld) 59.0 % Normal [facility] Comment on above: Order Comment: Speci men Type: BLOOD SPECIMENOrdering Facility: [facility] Address: [address] [place] [address] Performed By: #### 5 7021-8 ####[facility] [id number] [place] [address] [place] Nucleated RBC (Bld) [#/Vol] 10*3/uL Normal <0.01 [facility] Comment on above: Order Comment: Speci men Type: BLOOD SPECIMENOrdering Facility: [facility] Address: [address] [place] [address] Performed By: #### 5 7021-8 ####[facility] [id number] [place] [address] [place] Nucleated RBC/100 WBC (Bld) [Ratio] 0.0 /100 WBC Normal [facility] Comment on above: Order Comment: Speci men Type: BLOOD SPECIMENOrdering Facility: [facility] Address: [address] [place] [address] Performed By: #### 5 7021-8 ####[facility] LABIA [id number] [place] [address] [place] Platelet mean volume (Bld) [Entitic vol] 10.8 fL Normal 9.0-12.7 [facility] Comment on above: Order Comment: Speci men Type: BLOOD SPECIMENOrdering Facility: [facility] Address: [address] [place] [address] Performed By: #### 5 7021-8 ####[facility] LABIA [id number] [place] [address] [place] Platelets (Bld) [#/Vol] 157 10*3/uL Normal 150-400 [facility] Comment on above: Order Comment: Speci men Type: BLOOD SPECIMENOrdering Facility: [facility] Address: [address] [place] [address] Performed By: #### 5 7021-8 ####[facility] [id number] [place] [address] [place] RBC (Bld) [#/Vol] 4.02 10*6/uL Normal 3.90-5.20 [facility] Comment on above: Order Comment: Speci men Type: BLOOD SPECIMENOrdering Facility: [facility] Address: [address] [place] [address] Performed By: #### 5 7021-8 ####[facility] [id number] [place] [address] [place] WBC (Bld) [#/Vol] 6.30 10*3/uL Normal 3.70-11.00 [facility] Comment on above: Order Comment: Speci men Type: BLOOD SPECIMENOrdering Facility: [facility] Address: [address] [place] [address] Performed By: #### 5 7021-8 ####[facility] [id number] [address] [place] CNOVon 08-31-2024 CNOV Office Visit (CATHMN ) GOGO WARE ([id number]) 1940 F Date Time Provider Department 08/31/24 9:45 AM ODILON WELLS CATHMN During your visit today, we recorded the following information about you: Pulse Respiration Blood pressure Weight 65/minute 18/minute 144/59 74.2 kg Height 1.651 m Odilon Wells MD 08/31/2024 10:20 AM Signed [facility] [place] Pam López Department of Cardiovascular Medicine SECTION OF INTERVENTIONAL CARDIOLOGY OUTPATIENT VISIT DATE August 31, 2024 OUTPATIENT VISIT TYPE NEW PRIMARY CARE PHYSICIAN: Berta Rankin [address] [address] REFERRING PHYSICIAN: James Lindo MD, PhD, [facility] Staff, Section of Cardiovascular Imaging Department of Cardiovascular Medicine [facility] [place] [facility] CHIEF COMPLAINT: TAVR evaluation HISTORY OF PRESENT ILLNESS: Ms. Ware is a 84 year old female from [place] who presents today for TAVR evaluation. She [...] (left eye completely blind) She lives in [facility], and she is very functionally active. She [...] resulted at 1500. Her daughter lives in [place] and rest of her family in [facility]. PAST MEDICAL HISTORY Diagnosis Date Aortic [...] Oropharynx: T (more content not included)... Normal [facility] CREATININE, BLOOD (POC)on Creatinine [Mass/Vol] 0.80 mg/dL 0.7 - 1.4 mg/dL [facility] eGFR (POCT) mL/min/1.7 3 m2 [facility] Location:Radiology C [facility], [address] [place] [address], [address] [facility] POINT OF CARE [facility] CTA C/A/P (GATED) W IVCONon 08-31-2024 CTA C/A/P (GATED) W IVCON * * *Final Report* * * DATE OF EXAM: Aug 31 2024 12:44PM [facility] 0133 - CTA C/A/P (GATED) W IVCON [...] AORTIC DIMENSIONS: AORTIC ROOT: 3.0 cm measured ukbkx-ot-tcsld STJ: 2.5 cm mid ASCENDING THORACIC AORTA: [...] the thoracic and lumbar spine.Bilateral hip arthroplasty Security Nurse (topogram) images: No additional findings. IMPRESSION: Normal Thoracic and Abdominal Aor (more content not included)... Normal [facility] CTA Chest vessels and Abdomi nal vessels and Pelvis vessels W contrast Marifer 08-31-2024 IMPRESSION: Normal Thoracic and Abdominal Aortic Anatomy. Atherosclerotic changes as in the body of the report. Minimum luminal diameter throughout: 6 mm. Aortic Annulus Anatomy as described above. 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 Finisher Brush: ESTIVEN Transcribe Date/Time: Aug 31 2024 1:26P Dictated by : IRENE GILMORE MD This examination was interpreted and the report reviewed and electronically signed by: IRENE GILMORE MD on Aug 31 2024 2:01PM [facility] DIVISION OF RADIOLOGY * * *Final Report* * * DATE OF EXAM: Aug 31 2024 12:44PM [facility] 0133 - CTA C/A/P (GATED) W IVCON [...] AORTIC DIMENSIONS: AORTIC ROOT: 3.0 cm measured pehfm-ku-leknw STJ: 2.5 cm mid ASCENDING THORACIC AORTA: [...] the thoracic and lumbar spine.Bilateral hip arthroplasty Security Nurse (topogram) images: No additional findings. DIVISION OF RADIOLOGY Provider, [facility] - 08/31/2024 * * *Final Report* * * DATE OF EXAM: Aug 31 2024 12:44PM [facility] 0133 - CTA C/A/P (GATED) W IVCON [...] AORTIC DIMENSIONS: AORTIC ROOT: 3.0 cm measured wrrgc-jc-iiicn STJ: 2.5 cm mid ASCENDING THORACIC AORTA: [...] and lumbar spine.Larry (more content not included)... [facility] Radiology Study observation (narrative) [facility] CTA Chest vessels and Abdomi nal vessels and Pelvis vessels W contrast IVOrdered By: Ccf Provider on 08-31-2024 [facility] Comprehensive metabolic 2000 panelon 08-31-2024 Albumin [Mass/Vol] 4.2 g/dL Normal 3.9-4.9 [facility] Comment on above: Order Comment: Speci men Type: BLOOD SPECIMEN Ordering Facility: [facility] Address: [address] [place] [address] Performed By: #### 2 4323-8, 15368-2 #### [facility] CLIA [id number] [address] [place] [address] [place] ALP [Catalytic activity/Vol] 66 U/L Normal 34-123 [facility] Comment on above: Order Comment: Speci men Type: BLOOD SPECIMEN Ordering Facility: [facility] Address: [address] [place] [address] Performed By: #### 2 4323-8, 28509-3 #### [facility] CLIA [id number] [address] [place] [address] [place] ALT [Catalytic activity/Vol] 12 U/L Normal 7-38 [facility] Comment on above: Order Comment: Speci men Type: BLOOD SPECIMEN Ordering Facility: [facility] Address: [address] [place] [address] Performed By: #### 2 4323-8, 62949-1 #### [facility] CLIA [id number] [address] [place] [address] [place] Anion gap [Moles/Vol] 10 mmol/L Normal 8-15 [facility] Comment on above: Order Comment: Speci men Type: BLOOD SPECIMEN Ordering Facility: [facility] Address: [address] [place] [address] Performed By: #### 2 4323-8, 51261-7 #### [facility] CLIA [id number] [address] [place] [address] [place] AST [Catalytic activity/Vol] 42 U/L High 13-35 [facility] Comment on above: Order Comment: Speci men Type: BLOOD SPECIMEN Ordering Facility: [facility] Address: [address] [place] [address] Performed By: #### 2 4323-8, 99516-1 #### [facility] CLIA [id number] [address] [place] [address] [place] Bilirubin [Mass/Vol] 0.3 mg/dL Normal 0.2-1.3 [facility] Comment on above: Order Comment: Speci men Type: BLOOD SPECIMEN Ordering Facility: [facility] Address: [address] [place] [address] Performed By: #### 2 4323-8, 15241-2 #### [facility] CLIA [id number] [address] [place] [address] [place] Calcium [Mass/Vol] 9.6 mg/dL Normal 8.5-10.2 [facility] Comment on above: Order Comment: Speci men Type: BLOOD SPECIMEN Ordering Facility: [facility] Address: [address] [place] [address] Performed By: #### 2 4323-8, 69352-2 #### [facility] CLIA [id number] [address] [place] [address] [place] Chloride [Moles/Vol] 106 mmol/L Normal 98-107 [facility] Comment on above: Order Comment: Speci men Type: BLOOD SPECIMEN Ordering Facility: [facility] Address: [address] [place] [address] Performed By: #### 2 4323-8, 30007-1 #### [facility] CLIA [id number] [address] [place] [address] [place] CO2 [Moles/Vol] 27 mmol/L Normal 22-30 [facility] Comment on above: Order Comment: Speci men Type: BLOOD SPECIMEN Ordering Facility: [facility] Address: [address] [place] [address] Performed By: #### 2 4323-8, 69685-8 #### [facility] CLIA [id number] [address] [place] [address] [place] Creatinine [Mass/Vol] 0.86 mg/dL Normal 0.58-0.96 [facility] Comment on above: Order Comment: Speci men Type: BLOOD SPECIMEN Ordering Facility: [facility] Address: [address] [place] [address] Performed By: #### 2 4323-8, 67010-9 #### [facility] CLIA [id number] [address] [place] [address] [place] Creatinine and Glomerular filtration rate.predicted panel (S/P/Bld) 66 mL/min/1.73m??? Normal >=60 [facility] Comment on above: Order Comment: Speci men Type: BLOOD SPECIMEN Ordering Facility: [facility] Address: [address] [place] [address] Result Comment: Leanne mated Glomerular Filtration Rate [...] actual GFR. Performed By: #### 2 4323-8, 27044-5 #### [facility] CLIA [id number] [address] [place] [address] [place] Glucose [Mass/Vol] 106 mg/dL High 74-99 [facility] Comment on above: Order Comment: Speci men Type: BLOOD SPECIMEN Ordering Facility: [facility] Address: [address] [place] [address] Result Comment: The [place] Diabetes Association (ADA) provides guidance for cutoff [...] Standards of Medical Care in Diabetes 2016, [place] Diabetes Association. Diabetes Care. 2016.39(Suppl 1). Performed By: #### 2 4323-8, 75002-7 #### [facility] CLIA [id number] [address] [place] [address] [place] Potassium [Moles/Vol] 4.9 mmol/L Normal 3.7-5.1 [facility] Comment on above: Order Comment: Speci men Type: BLOOD SPECIMEN Ordering Facility: [facility] Address: [address] [place] [address] Performed By: #### 2 4323-8, 34196-6 #### [facility] CLIA [id number] [address] [place] [address] [place] Protein [Mass/Vol] 7.1 g/dL Normal 6.3-8.0 [facility] Comment on above: Order Comment: Speci men Type: BLOOD SPECIMEN Ordering Facility: [facility] Address: [address] [place] [address] Performed By: #### 2 4323-8, 54565-0 #### [facility] CLIA [id number] [address] [place] [address] [place] Sodium [Moles/Vol] 143 mmol/L Normal 136-144 [facility] Comment on above: Order Comment: Speci men Type: BLOOD SPECIMEN Ordering Facility: [facility] Address: [address] [place] [address] Performed By: #### 2 4323-8, 39614-2 #### [facility] CLIA [id number] [address] [place] [address] [place] Urea nitrogen [Mass/Vol] 21 mg/dL Normal 7-21 [facility] Comment on above: Order Comment: Speci men Type: BLOOD SPECIMEN Ordering Facility: [facility] Address: [address] [place] [address] Performed By: #### 2 4323-8, 52146-8 #### [facility] IA [id number] [address] [place] [address] [place] ECG COMPLETEon 08-31-2024 ECG COMPLETE Ventricular Rate : 6 1 BPM Atrial Rate : 61 BPM P-R Interval : 226 ms QRS Duration : 90 ms Q-T Interval : 416 ms QTC Calculation(Bazett) : 418 ms Calculated P Alexander : 77 degrees Calculated R Alexander : 23 degrees Calculated T Alexander : 96 degrees SINUS RHYTHM WITH 1ST DEGREE AV BLOCK NONSPECIFIC T WAVE ABNORMALITY ABNORMAL ECG Confirmed by BETTY FELICIANO MD ([id number]) on 10/13/2024 11:40:01 PM NAME : GOGO WARE PID : [id number] : 1940 Gender : Female Race : ORD : [id number] Procedure Date : Aug 31 2024 10:44:52 Edit Date : Oct 13 2024 23:40:02 Diagnosis: SINUS RHYTHM WITH 1ST DEGREE AV BLOCK NONSPECIFIC T WAVE ABNORMALITY ABNORMAL ECG Confirmed by BETTY FELICIANO MD ([id number]) on 10/13/2024 11:40:01 PM Test Reason : Location : 314 : J14 J14 Overread By : BETTY FELICIANO MD Edited By : BETTY FELICIANO MD Referred By : KACY JIMENEZ Acquired by : KACY INGRAM [facility] ECHOon 08-31-2024 Echocardiography Echocardiography Rep ort: Transthoracic Echo [place] [id number] Date of service: 08/31/2024 3:15:51 PM MECHANIC Ordering physician: JAMES LINDO Indication: Aortic stenosis [...] * * Final * * * CC [employer] Medical Image : [id number] [email or web address] (more content not included)... Normal [facility] HIGH SENSITIVITY TROPONIN To n 08-31-2024 Troponin T.cardiac High sensitivity method [Mass/Vol] 22 ng/L High <12 [facility] Comment on above: Order Comment: Speci men Type: BLOOD SPECIMEN Ordering Facility: [facility] Address: [address] [place] [address] Performed By: #### 2 4323-8, 13581-5 #### [facility] CLIA [id number] [address] [place] [address] [place] LIPID PANEL, NONFASTINGon Cholesterol [Mass/Vol] 155 mg/dL NINF - 200 mg/dL [facility] Comment on above: <200 mg/dL, Desirabl e 200-239 mg/dL, Borderline high >239 mg/dL, High HDL Cholesterol, Nonfasting 78 mg/dL 39 - PINF mg/dL [facility] Comment on above: 40-59 mg/dL, Accepta ble >59 mg/dL, High: Negative risk factor for coronary heart disease <40 mg/dL, Low: Positive risk factor for coronary heart disease Interpretation and review of laboratory results Normal [facility] LDL Cholesterol, Nonfasting 63 mg/dL NINF - 100 mg/dL [facility] Comment on above: <100 mg/dL, Optimal 100-129 mg/dL, Near optimal/above optimal 130-159 mg/dL, Borderline high 160-189 mg/dL, High >189 mg/dL, Very high Secondary prevention optimal LDL Cholesterol levels are recommended to be < 70 mg/dL LDL/HDL Ratio, Nonfasting 0.81 mg/dL NINF - 2.54 mg/dL [facility] Comment on above: Reference: 1. National Cholesterol Education Program ATP III Guideline At-A-Glance Quick Desk Reference: National Heart, Lung, and Blood [place]. National Institutes of Health. 2001: NIH Publication No. 01-3305. 2. An International Atherosclerosis Society position paper: global recommendations for the management of dyslipidemia: executive summary, Atherosclerosis. 2014: 232(2):410-413. Non HDL Cholesterol, Nonfasting 77 mg/dL NINF - 130 mg/dL [facility] Comment on above: <130 mg/dL, Optimal 130-159 mg/dL, Near optimal/above optimal 160-189 mg/dL, Borderline high 190-219 mg/dL, High >219 mg/dL, Very high Secondary prevention optimal non HDL Cholesterol levels are recommended to be <100 mg/dL Total Chol/HDL Ratio, Nonfasting 1.99 mg/dL NINF - 5.10 mg/dL [facility] Triglycerides, Nonfasting 68 mg/dL NINF - 150 mg/dL [facility] Comment on above: <150 mg/dL, Normal 150-199 mg/dL, Borderline high 200-499 mg/dL, High >499 mg/dL, Very high VLDL Cholesterol, Nonfasting 14 mg/dL NINF - 30 mg/dL [facility] Cholesterol [Mass/Vol] 155 mg/dL Normal <200 [facility] Comment on above: Order Comment: Speci men Type: BLOOD SPECIMEN Ordering Facility: [facility] Address: [address] [place] [address] Result Comment: <200 mg/dL, Desirable 200-239 mg/dL, Borderline high >239 mg/dL, High Performed By: #### 2 4323-8, 62632-4 #### [facility] CLIA [id number] [address] [place] [address] [place] HDL CHOLESTEROL, NF 78 mg/dL Normal >39 [facility] Comment on above: Order Comment: Speci men Type: BLOOD SPECIMEN Ordering Facility: [facility] Address: [address] [place] [address] Result Comment: 40-5 9 mg/dL, Acceptable >59 mg/dL, High: Negative risk factor for coronary heart disease <40 mg/dL, Low: Positive risk factor for coronary heart disease Performed By: #### 2 4323-8, 92722-2 #### [facility] CLIA [id number] [address] [place] [address] OF [facility] LDL CHOLESTEROL, NF 63 mg/dL Normal <100 [facility] Comment on above: Order Comment: Terri mittal Type: BLOOD SPECIMEN Ordering Facility: [facility] Address: [address] [place] [address] Result Comment: <100 mg/dL, Optimal 100-129 mg/dL, Near optimal/above optimal 130-159 mg/dL, Borderline high 160-189 mg/dL, High >189 mg/dL, Very high Secondary prevention optimal LDL Cholesterol levels are recommended to be < 70 mg/dL Performed By: #### 2 4323-8, 48432-5 #### [facility] CLIA [id number] [address] [place] [address] OF [facility] LDL/HDL RATIO, NF 0.81 mg/dL Normal <2.54 [facility] Comment on above: Order Comment: Terri mittal Type: BLOOD SPECIMEN Ordering Facility: [facility] Address: [address] [place] [address] Result Comment: Refe rence: 1. National Cholesterol Education Program ATP III Guideline At-A-Glance Quick Desk Reference: National Heart, Lung, and Blood [place]. National Institutes of Health. 2001: NIH Publication No. 01-3305. 2. An International Atherosclerosis Society position paper: global recommendations for the management of dyslipidemia: executive summary, Atherosclerosis. 2014: 232(2):410-413. Performed By: #### 2 4323-8, 55941-2 #### [facility] CLIA [id number] [address] [place] [address] STATES OF [facility] NON HDL CHOL, NF 77 mg/dL Normal <130 [facility] Comment on above: Order Comment: Terri mittal Type: BLOOD SPECIMEN Ordering Facility: [facility] Address: [address] [place] [address] Result Comment: <130 mg/dL, Optimal 130-159 mg/dL, Near optimal/above optimal 160-189 mg/dL, Borderline high 190-219 mg/dL, High >219 mg/dL, Very high Secondary prevention optimal non HDL Cholesterol levels are recommended to be <100 mg/dL Performed By: #### 2 4323-8, 37034-6 #### [facility] CLIA [id number] [address] [place] [address] [place] T CHOL/HDL RATIO NF 1.99 mg/dL Normal <5.10 [facility] Comment on above: Order Comment: Speci men Type: BLOOD SPECIMEN Ordering Facility: [facility] Address: [address] [place] [address] Performed By: #### 2 4323-8, 65688-9 #### [facility] CLIA [id number] [address] [place] [address] [place] TRIGLYCERIDES, NF 68 mg/dL Normal <150 [facility] Comment on above: Order Comment: Speci men Type: BLOOD SPECIMEN Ordering Facility: [facility] Address: [address] [place] [address] Result Comment: <150 mg/dL, Normal 150-199 mg/dL, Borderline high 200-499 mg/dL, High >499 mg/dL, Very high Performed By: #### 2 4323-8, 86383-1 #### [facility] CLIA [id number] [address] [place] [address] [place] VLDL CHOLESTEROL, NF 14 mg/dL Normal <30 [facility] Comment on above: Order Comment: Speci men Type: BLOOD SPECIMEN Ordering Facility: [facility] Address: [address] [place] [address] Performed By: #### 2 4323-8, 14906-5 #### [facility] CLIA [id number] [address] [place] [address] [place] LPa SerPl-mCncon 08-31-2024 Lipoprotein a [Mass/Vol] 10 mg/dL Normal <30 [facility] Comment on above: Order Comment: Speci men Type: BLOOD SPECIMEN Ordering Facility: [facility] Address: [address] [place] [address] Performed By: #### 2 4323-8, 52733-6 #### [facility] CLIA [id number] [address] [place] [address] OF [place] NT-proBNP [facility] 08-31 Natriuretic peptide.B prohormone N-Terminal [Mass/Vol] 1668 pg/mL High <450 [facility] Comment on above: Order Comment: Speci men Type: ARTERIAL BLOOD SPECIMEN Ordering Facility: [facility] Address: [address] [place] [address] Performed By: #### A LLBG #### [facility] CLIA [id number] [address] [place] [address] [place] US CAROTID ARTERIES [facility] 08-31-2024 US CAROTID [facility]ER[facility] Non-Invasive Vascular Laboratory [facility] J35 Carotid Duplex Bilateral/Complete Date of service/time: [...] and antegrade flow noted. Technologist: Azul Lin T Ordering physician: KACY JIMENEZ Interpreting physician: Medina Patel MD, SHERIDAN Final CC [employer] Medical Image : [id number] [id number] See Link below for Image Normal [facility] XR CHEST 2V FRONTAL/LATon XR CHEST 2V [...] visualized on this radiograph. Lower lung atelectasis. Finisher Brush: ESTIVEN Transcribe Date/Time: Aug 31 2024 3:37P Dictated by : ELOISA JIMENEZ MD This examination was interpreted and the report reviewed and electronically signed by: WOOD DAMON MD on Aug 31 2024 5:31PM EST [id number] Normal [facility] XR Chest PA and Lateralon IMPRESSION: Anterior mediastinal cystic mass seen on same day CT not well visualized on this radiograph. Lower lung atelectasis. Finisher Brush[facility] Transcribe Date/Time: Aug 31 2024 3:37P Dictated by : ELOISA JIMENEZ MD This examination was interpreted and the report reviewed and electronically signed by: WOOD DAMON MD on Aug 31 2024 5:31PM EST DIVISION OF RADIOLOGY * * *Final [...] visualized on this radiograph. Lower lung atelectasis. Finisher Brush: ESTIVEN Transcribe Date/Time: Aug 31 2024 3:37P Dictated by : ELOISA JIMENEZ MD This examination was interpreted and the report reviewed and electronically signed by: WOOD DAMON MD on Aug 31 2024 5:31PM EST [facility] Radiology Study observation (narrative) [facility] XR Chest PA and LateralOrder ed By: Ccf Provider on 08-31-2024 [facility] Keri 05-22-2024 [facility] Telephone (LUANNE) CHAZGOGO Hien ([id number]) 1940 F Date Time Provider Department 05/22/24 [...] Date Reviewed: 04/28/2024 Reviewed by: Zunilda Cardenas, FORTINO - Fully Assessed Primary Visit Diagnosis:Non-rheumatic aortic stenosis [I35.0] Order(s):CONSULT TO TAVR/TMVR [[id number]] Order #: [id number]: 1 Prescriptions as of 05/22/2024 - valsartan [...] hypertension [I10] 09/09/2017 Coronary artery disease involving nikolai guo*04/07/2024 Insomnia [G47.00] 04/07/2024 Glaucoma [H40.9] 04/07/2024 Severe aortic stenosis by prior echocardiogram *04/07/2024 Encounter Status:Closed by JAMES LINDO on 05/22/24 [facility] CNOVon 04-28-2024 CNOV Office Visit (CARIMN ) GOGO WARE ([id number]) 1940 F Date Time Provider Department 04/28/24 1:45 PM [facility] During your visit today, we recorded the following information about you: Pulse Blood pressure Weight Height 58/minute 137/66 73.9 kg 1.651 m James Lindo MD 04/28/2024 3:32 PM Signed [facility] [place] Pam López Department of Cardiovascular Medicine SECTION OF CARDIOVASCULAR IMAGING OUTPATIENT VISIT DATE April 28, 2024 OUTPATIENT VISIT TYPE CONSULTATION PRIMARY CARE PHYSICIAN: To use this Smartlink, specify the provider ID whose address you want to display, e.g., .PROVADDR[1 (where 1 is the provider ID). REFERRING PHYSICIAN Berta Rankin [address] [address] CHIEF COMPLAINT: Aortic stenosis HISTORY OF PRESENT ILLNESS/ NURSING INTAKE: Cardiac consultation at the request of Dr. Berta Rich. A copy of this consultation note will be provided to the requesting physician by way of shared Medical record or letter to requesting physician via US mail. Ms. Ware is a 84 year old female from [place], [place] here today for cardiovascular evaluation related [...] VICTOR M Hercules referred the patient to [facility] imaging for TAVR workup. She reports shortness [...] Pulse (!) (more content not included)... Normal [facility] [id number] 04-28-2024 ECG01 Ventricular Rate : 6 4 BPM Atrial Rate : 64 BPM P-R Interval : 212 ms QRS Duration : 92 ms Q-T Interval : 408 ms QTC Calculation(Bazett) : 420 ms Calculated P Alexander : 76 degrees Calculated R Alexander : 17 degrees Calculated T Alexander : 69 degrees SINUS RHYTHM WITH 1ST DEGREE AV BLOCK OTHERWISE NORMAL ECG Confirmed by MD PENNY, PhD, JOSUÉ ([id number]) on 05/08/2024 5:57:26 AM NAME : GOGO WARE PID : [id number] : 1940 Gender : Female Race : ORD : Procedure Date : Apr 28 2024 13:41:47 Edit Date : May 08 2024 05:57:29 Diagnosis: SINUS RHYTHM WITH 1ST DEGREE AV BLOCK OTHERWISE NORMAL ECG Confirmed by MD PENNY, PhD, JOSUÉ ([id number]) on 05/08/2024 5:57:26 AM Test Reason : Location : 314 : J14 Overread By : MD PENNY, PhD,JOSUÉ Edited By : MD PENNY, PhD,JOSUÉ Referred By : JAMES LINDO Acquired by : ROSEMARIE BARNEY [facility] NT-proBNP [facility] 04-28 Natriuretic peptide.B prohormone N-Terminal [Mass/Vol] 1572 pg/mL High <450 [facility] Comment on above: Order Comment: Speci men Type: ARTERIAL BLOOD SPECIMEN Ordering Facility: [facility] Address: [address] [place] [address] Performed By: #### A LLBG #### [facility] CLIA [id number] [address] [place], [place] [address] [facility] ([id number]) 1940 F Date Time Provider Department 04/23/24 AZUL MADRIGAL [facility] During your visit today, we recorded the following information about you: Azul Madrigal APRN.ADMINISTRATIVE TECH 04/23/2024 2:46 PM Signed I called the patient to discuss her upcoming appointments with the ward helper to evaluate for possible TAVR. The patient was agreeable to the date and time. Ms Ware asked if I can call her friend Kenisha who will be bringing her to these appointments and I left a message on Fernando' voiceSeldom Seen Adventuresil with the appointment times and desk area. I've also left my office phone number to go over the directions and the appointment schedule with her as well if she has a question or concern about where to come for the appointments. Also of note, Dr Lindo's hospital administrative assistant left a message for Kenisha to call her to go over the appointments and to assist her with the directions. Azul Madrigal APRN-ADMINISTRATIVE TECH Allergies As of Date: 04/23/2024 (No Known Allergies) Date Reviewed: 04/21/2024 Reviewed by: Kacy Pathak COA - Fully Assessed Reason for Visit: Appointment [186] Cmt: [employer] appt 04/28/2024 Prescriptions as of 04/23/2024 - [...] hypertension [I10] 09/09/2017 Coronary artery disease involving nikolai gou*04/07/2024 Insomnia [G47.00] 04/07/2024 Glaucoma [H40.9] 04/07/2024 Severe aortic stenosis by prior echocardiogram *04/07/2024 Encounter Status:Closed by AZUL MADRIGAL on 04/23/24 [facility] Telephone (CARIMN) GOGO WARE ([id number]) 1940 F Date Time Provider Department 04/23/24 [...] hypertension [I10] 09/09/2017 Coronary artery disease involving nikolai guo*04/07/2024 Insomnia [G47.00] 04/07/2024 Glaucoma [H40.9] 04/07/2024 Severe aortic stenosis by prior echocardiogram *04/07/2024 Encounter Status:Closed by VITOR TOTH on 04/23/24 [facility] 04-21-2024 JACEYN Telephone (IMLATRICEMN) GOGO WARE ([id number]) 1940 F Date Time Provider Department 04/21/24 AZUL MADRIGAL [facility] During your visit today, we recorded the following information about you: Azul Madrigal APRN.ADMINISTRATIVE TECH 04/21/2024 9:02 AM Signed Called Interventional Cardiology [...] me to reschedule if needed. Azul Madrigal APRN-ADMINISTRATIVE TECH Allergies As of Date: 04/21/2024 (No Known Allergies) Date Reviewed: 04/20/2024 Reviewed by: Chinyere Lo RN - Fully Assessed Reason for Visit: Appointment [186] Cmt: Cardiology scheduling to discuss TAVR TAVR [Other] Primary Visit Diagnosis:Aortic valve stenosis, etiology of cardiac valve disease unspecified [I35.0] Order(s):CONSULT TO INTERVENTIONAL CARDIOLOGY [[id number]] Order #: [id number]: 1 FUTURE Prescriptions as of 04/21/2024 - [...] hypertension [I10] 09/09/2017 Coronary artery disease involving nikolai guo*04/07/2024 Insomnia [G47.00] 04/07/2024 Glaucoma [H40.9] 04/07/2024 Severe aortic stenosis by prior echocardiogram *04/07/2024 Encounter Status:Closed by AZUL MADRIGAL on 04/21/24 Normal [facility] ANES POSTPROC EVALon 024 ANES POSTPROC EVAL HNO ID: [id number] Author: THERESE RUELAS MD Service: ? Author Type: Anesthesiologist Type: Anesthesia Postprocedure Evaluation Filed: 04/20/2024 14:54 Note Text: POST ANESTHESIA EVALUATION NOTE : 1940 Procedure Summary Date: 04/20/24 Room / Location: [address] Anesthesia Start: 844 Anesthesia Stop: 1021 [...] April 20, 2024 TIME: 2:54 PM CSN: [id number] Normal [facility] ANES PRE-OPon 04-20-2024 ANES PRE-OP HNO ID: [id number] Author: THERESE RUELAS MD Service: ? Author Type: Anesthesiologist Type: Anesthesia Preprocedure Evaluation Filed: 04/20/2024 08:27 Note Text: ANESTHESIOLOGY DAY OF SURGERY NOTE : 1940 Procedure Information Date/Time: 04/20/24834 Procedure: PHACOEMULSIFICATION CATARACT IMPLANT INTRAOCULAR LENS W/O ENDOSCOPIC CYCLOPHOTOCOAGULATION (Left: Eye) Location: [place] [address] / [facility] Surgeons: Wali Triana MD Estimated body mass index is 27.96 kg/m? as calculated from the following: Height as of 04/06/24: 165.1 cm (5' 5"). Weight as of 04/06/24: 76.2 kg (168 lb). 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 Patient / Responsible Green Party agrees to proceed: yes Patient / [...] 0759 Pulse 55 04/20/24 0759 Resp 16 04/20/24 0759 Temp 36.1 ?C (97 ?F) 04/20/24 075 [...] April 20, 2024 TIME: 8:06 AM CSN: [id number] Normal [facility] OPERATIVE NOon 04-20-2024 OPERATIVE NO HNO ID: [id number] Author: WALI TRIANA MD Service: Ophthalmology Author Type: Physician Type: Operative Report Filed: 04/20/2024 10:46 Note Text: Log ID: [id number] NAME: Gogo Ware SURGERY START TIME: 9:00 AM SURGERY END TIME: 9:14 AM SURGERY/PROCEDURE DATE: 04/20/2024 SURGEON(S)/SEARCH DEVELOPER(S): Surgeon(s) and Role: * Wali Triana MD - Primary * Chandra More MD - Resident - Assisting PROCEDURE: Cataract Extraction by Phacoemulsification with Posterior Chamber Intraocular Lens Implantation of the left eye IMPLANTS: Implant Name Type Inv. Item Serial No. Load Manager Lot No. LRB No. Used Action Model No. CC60WF.235 [employer] - [id number] Intraocular Lens [id number].235 [employer] [id number] [employer] Left 1 Implanted [id number].235 [...] bag. The machine was then set on bhutanese mode and the IA handpiece was used [...] has an appointment to follow-up at the [facility] [place] tomorrow. I/primary surgeon/proceduralist performed the entire procedure. I have reviewed the images and report from the Ophthalmic Biometry 04/20/2024 to determine the Intraocular lens Power Calculation for the IOL lens implant. I have interpreted and agree with the calculation of the IOL as listed below. Signed, Wali Triana MD [facility] 04-16-2024 CNPN Telephone (IMOPMN) GOGO WARE ([id number]) 1940 F Date Time Provider Department 04/16/24 BERTA RICH [facility] During your visit today, we recorded the following information about you: Berta Rich PA-C 04/16/2024 2:58 PM Signed Referral sent to severe aortic stenosis. Pt would like to proceed with TAVR. Allergies As of Date: 04/16/2024 (No Known Allergies) Date Reviewed: 04/07/2024 Reviewed by: Dorothy Han, SKIP.[facility] - Fully Assessed Reason for Visit: Com Writer - Other [3602] Primary Visit Diagnosis:Aortic valve stenosis, etiology of cardiac valve disease unspecified [I35.0] Order(s):CONSULT TO CARDIOLOGY [9004] Order #: [id number]: 1 FUTURE Prescriptions as of 04/16/2024 - [...] hypertension [I10] 09/09/2017 Coronary artery disease involving nikolai guo*04/07/2024 Insomnia [G47.00] 04/07/2024 Glaucoma [H40.9] 04/07/2024 Severe aortic stenosis by prior echocardiogram *04/07/2024 Encounter Status:Closed by BERTA RICH I on 04/16/24 Normal [facility] ECHOon 04-15-2024 Echocardiography Echocardiography Rep ort: Transthoracic Echo [facility] Date of service: 04/15/2024 11:23:27 AM MECHANIC Ordering physician: AZUL MADRIGAL Indication: Initial evaluation valvular heart disease Technologist: Josephine Whitney [facility] Interpreting physician: Mavis Judge MD PATIENT: Name: [...] * * Final * * * CC [employer] Medical Image : [id number] oDynamicsSISUID Normal [facility] CNPEvelia 04-13-2024 CNPN Telephone (IMOPMN) GOGO WARE ([id number]) 1940 F Date Time Provider Department 04/13/24 BERTA RICH [facility] During your visit today, we recorded the following information about you: Berta Rich, JEIMYC 04/13/2024 8:17 AM Signed Called pt, and gave instructions and directions for echo on 04/15/24. Allergies As of Date: 04/13/2024 (No Known Allergies) Date Reviewed: 04/07/2024 Reviewed by: Dorothy Han, SKIP.ADMINISTRATIVE TECH - Fully Assessed Reason for Visit: Com Writer - Other [3602] Prescriptions as of 04/13/2024 - moxifloxacin (VIGAMOX) [...] hypertension [I10] 09/09/2017 Coronary artery disease involving nikolai guo*04/07/2024 Insomnia [G47.00] 04/07/2024 Glaucoma [H40.9] 04/07/2024 Severe aortic stenosis by prior echocardiogram *04/07/2024 Encounter Status:Closed by BERTA RICH I on 04/13/24 [facility] 04-06-2024 CNPN Telephone (OPHTMN) GOGO WARE ([id number]) 1940 F Date Time Provider Department 04/06/24 [facility] During your visit today, we recorded the [...] possible PPV jg to perform target plano Goshe, Wali Cunningham MD 04/06/2024 8:31 PM Signed I sent her prescriptions to her pharmacy but nothing starts until after the surgery is complete (the day of surgery) Idalia Bermeo 04/07/2024 8:39 AM Signed Informed patient Allergies As of Date: 04/06/2024 (No Known Allergies) Date Reviewed: 04/06/2024 Reviewed by: Dorothy Han APRN.ADMINISTRATIVE TECH - Fully Assessed Reason for Visit: Patient Question [1477] Order(s):moxifloxacin (VIGAMOX) 0.5 % ophthalmic solutionUse 1 [...] both eye (more content not included)... [facility] ([id number]) 1940 F Date Time Provider Department 04/06/24 DOROTHY HAN During your visit today, we recorded the following information about you: Dorothy Han APRN.JACEY 04/06/2024 1:57 PM Signed Please request last cardiac OV and testing from [facility]. DOS 04/20/2024. Amrita Perea LPN 04/06/2024 2:17 PM Signed Fax request sent to [facility] requesting last office visit and cardiac testing for upcoming surgery 04/20/24. .GISELE Nation Jessica, LPN 04/06/2024 3:08 PM Signed Received last office visit and cardiac testing. Original sent to [facility] through Onbase scanning. Amrita Perea LPN Allergies As of Date: 04/06/2024 (No Known Allergies) Date Reviewed: 04/06/2024 Reviewed by: Dorothy Han APRN.JACEY - Fully Assessed Reason for Visit: Request Outside Medical Records [3483] Prescriptions as of 04/06/2024 - carvedilol (COREG) [...] Date: 04/06/2024 (None) Encounter Status:Closed by AMRITA PEREA on 04/06/24 Normal [facility] HISTORY PHYSICALon HISTORY PHYSICAL HNO ID: [id number] Author: DOROTHY HAN APRN.CNP Service: ? 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 Patient / Responsible Green Party agrees to proceed: yes Patient / [...] Essential (Primary) Hypertension Coronary Artery Disease Involving [place] Coronary Artery of [place] Heart With Angina Pectoris (Hcc) Insomnia Glaucoma Severe Aortic Stenosis By Prior Echocardiogram COVID-19 Immunization Statu (more content not included)... Normal [facility] Absolute lymphocyte countOrd ered By: Eh Huddleston on 09-30-2023 Lymphocytes Auto (Unsp spec) [#/Vol] 1.61 10*3/uL 0.83-4.51 [facility] Basophil percentageOrdered B y: Eh Huddleston on 09-30-2023 Basophils/100 WBC (Bld) 0.4 % 0-1 [facility] Bilirubin [Mass/Vol] 0.60 mg/dL 0.20-1.00 [facility] Comment on above: For patients on eltr ombopag therapy, use of Dimension [place] TBIL is not recommended. Chloride [Moles/Vol] 107 mmol/L 98-107 [facility] Cholesterol [Mass/Vol] 164 mg/dL <200 [facility] Comment on above: <200 mg/dL Desirable 200-240 mg/dL Borderline >240 mg/dL High Risk Eosinophils/100 WBC (Bld) 0.8 % 0-5 [facility] Glucose [Mass/Vol] 117 mg/dL 74-106 [facility] Comment on above: Fasting Glucose resu lt from 100 to 125 mg/dL suggests IMPAIRED HOMEOSTASIS per A.D.A. criteria. Neutrophils (Bld) [#/Vol] 5.3 10*3/uL 2.0-7.7 [facility] Neutrophils/100 WBC (Bld) 70.5 % 47-70 [facility] Potassium [Moles/Vol] 4.0 mmol/L 3.5-5.1 [facility] Protein [Mass/Vol] 7.7 g/dL 6.4-8.2 [facility] Sodium [Moles/Vol] 139 mmol/L 136-145 [facility] Triglyceride [Mass/Vol] 123 mg/dL <199 [facility] Comment on above: The drugs N-Acetylcy steine and Metamizole may falsely depress this assay.Serum Triglycerides Reference Interval Normal <150 mg/dL Borderline high 150 - 199 mg/dL High 200 - 499 mg/dL Very High > or = 500 mg/dL WBC (Bld) [#/Vol] 7.5 10*3/uL 4.4-11.0 [facility] Blood erythrocytes count (nu mber/volume)Ordered By: Eh Huddleston on 09-30-2023 RBC (Bld) [#/Vol] 4.26 10*6/uL 4.2-5.4 [facility] Blood hemoglobin measurement (mass/volume)Ordered By: Eh Huddleston on 09-30-2023 Hemoglobin (Bld) [Mass/Vol] 13.1 g/dL 12.0-15.0 [facility] Blood lymphocytes/100 leukoc ytesOrdered By: Eh Huddleston on 09-30-2023 Lymphocytes/100 WBC (Bld) 21.6 % 19-41 [facility] Blood monocytes/100 leukocyt esOrdered By: Eh Huddleston on 09-30-2023 Monocytes/100 WBC (Bld) 6.4 % 0-10 [facility] Blood platelet mean volumeOr dered By: Eh Huddleston on 09-30-2023 Platelet mean volume (Bld) [Entitic vol] 11.2 fL 6.2-12.0 [facility] Determination of erythrocyte mean corpuscular volume (MCV)Ordered By: Eh Huddleston on 09-30-2023 MCV (RBC) [Entitic vol] 94.4 fL 81-99 [facility] Hematocrit Auto (Bld) [Volum e fraction]Ordered By: Eh Huddleston on 09-30-2023 Hematocrit (Bld) [Volume fraction] 40.2 % 37-47 [facility] Laboratory - Chemistry and C hemistry - challengeOrdered By: Eh Huddleston on 09-30-2023 ALP [Catalytic activity/Vol] 71 U/L 45-117 [facility] ALT [Catalytic activity/Vol] 22 U/L 13-56 [facility] CO2 [Moles/Vol] 25.0 mmol/L 21.0-32.0 [facility] Globulin (S) [Mass/Vol] 3.8 g/dL 2.2-4.2 [facility] Urea nitrogen/Creatinine [Mass ratio] 19.1 mg/mg 10-20 [facility] Laboratory - Hematology and Cell countsOrdered By: Eh Huddleston on 09-30-2023 Erythrocyte distribution width (RBC) [Entitic vol] 44.5 fL 35.1-43.9 [facility] Erythrocyte distribution width (RBC) [Ratio] 12.8 % 11.6-14.6 [facility] Immature granulocytes/100 WBC (Bld) 0.300 % 0.0-0.9 [facility] Comment on above: IG% - Immature Granu locytes (promyelocytes, myelocytes and metamyelocytes) > 1% indicates that a LEFT SHIFT is Present. MCH (RBC) [Entitic mass] 30.8 pg 27.0-32.0 [facility] Nucleated RBC/100 WBC (Bld) [Ratio] 0 % 0-5 [facility] MCHC Auto (RBC) [Mass/Vol]Or dered By: Eh Huddleston on 09-30-2023 MCHC (RBC) [Mass/Vol] 32.6 g/dL 32-36 [facility] No Panel InformationOrdered By: Eh Huddleston on 09-30-2023 Estimated GFR (MDRD) Amer 77 mL/min >60 [facility] Comment on above: GFR Calc Estimated GFR (MDRD) Non-Af Amer 64 mL/min >60 [facility] Comment on above: Non- GFR Calc Thyroid Stimulating Hormone (TSH) 1.37 uIU/mL 0.358-3.74 [facility] Vitamin D 25-Hydroxy 25.4 ng/mL [facility] Comment on above: Vitamin D 25(OH) Sta tus Range Deficiency <20 ng/mL (50nmol/L) Insufficiency 20 - 30 ng/mL (50 - 75 nmol/L) Sufficiency 30 - 100 ng/mL (75 - 250 nmol/L) Toxicity >100 ng/mL (>250 nmol/L) Platelets bldOrdered By: Eh Huddleston on 09-30-2023 Platelets (Bld) [#/Vol] 188 10*3/uL 150-450 [facility] Serum or plasma albumin susy urement (mass/volume)Ordered By: Eh Huddleston on 09-30-2023 Albumin [Mass/Vol] 3.9 g/dL 3.2-5.0 [facility] Serum or plasma albumin/glob ulin mass ratioOrdered By: Eh Huddleston 09-30-2023 Albumin/Globulin [Mass ratio] 1.0 {ratio} 0.9-2.4 [facility] Serum or plasma calcium susy urement (mass/volume)Ordered By: Eh Huddleston 09-30-2023 Calcium [Mass/Vol] 9.3 mg/dL 8.5-10.1 [facility] Serum or plasma cholesterol in HDL measurement (mass/volume)Ordered By: Eh Huddleston 09-30-2023 Cholesterol in HDL [Mass/Vol] 84 mg/dL >40 [facility] Comment on above: The drugs N-Acetylcy steine and Metamizole may falsely depress this assay. Reference Range HDL <40 mg/dL Low HDL Cholesterol HDL >or= 60 mg/dL High HDL Cholesterol Serum or plasma cholesterol in VLDL measurement (mass/volume)Ordered By: Eh Huddleston 09-30-2023 Cholesterol in VLDL [Mass/Vol] 25 mg/dL 5-40 [facility] Serum or plasma creatinine m easurement (mass/volume)Ordered By: Eh Huddleston 09-30-2023 Creatinine [Mass/Vol] 0.89 mg/dL 0.55-1.02 [facility] Comment on above: The validity of the calculated GFR & GFRAA in patients over 70 years has not been determined. Clinical correlation is essential. Serum or plasma low density lipoprotein (LDL) cholesterol measurement (mass/volume)Ordered By: Eh Huddleston 09-30-2023 Cholesterol in LDL [Mass/Vol] 55 mg/dL 0-130 [facility] Serum or plasma urea nitroge n measurement (mass/volume)Ordered By: Eh Huddleston 09-30-2023 Urea nitrogen [Mass/Vol] 17 mg/dL 7-18 [facility] Thin prep Papanicolaou smear with manual screeningOrdered By: Eh Huddleston on 09-30-2023 Thin prep Papanicolaou smear with manual screening 48 U/L 15-37 [facility] Thin prep Papanicolaou smear with manual screening 7 5-15 [facility] Absolute lymphocyte countOrd ered By: Dr. Huddleston on 03-28-2023 Lymphocytes Auto (Unsp spec) [#/Vol] 1.68 10*3/uL 0.83-4.51 [facility] Basophil percentageOrdered B y: Dr. Huddleston on 03-28-2023 Basophils/100 WBC (Bld) 0.4 % 0-1 [facility] Bilirubin [Mass/Vol] 0.40 mg/dL 0.20-1.00 [facility] Comment on above: For patients on eltr ombopag therapy, use of Dimension [place] TBIL is not recommended. Chloride [Moles/Vol] 110 mmol/L 98-107 [facility] Cholesterol [Mass/Vol] 146 mg/dL <200 [facility] Comment on above: <200 mg/dL Desirable 200-240 mg/dL Borderline >240 mg/dL High Risk Eosinophils/100 WBC (Bld) 2.1 % 0-5 [facility] Glucose [Mass/Vol] 104 mg/dL 74-106 [facility] Comment on above: Fasting Glucose resu lt from 100 to 125 mg/dL suggests IMPAIRED HOMEOSTASIS per A.D.A. criteria. Neutrophils (Bld) [#/Vol] 2.9 10*3/uL 2.0-7.7 [facility] Neutrophils/100 WBC (Bld) 55.5 % 47-70 [facility] Potassium [Moles/Vol] 4.3 mmol/L 3.5-5.1 [facility] Protein [Mass/Vol] 7.6 g/dL 6.4-8.2 [facility] Sodium [Moles/Vol] 141 mmol/L 136-145 [facility] Triglyceride [Mass/Vol] 112 mg/dL <199 [facility] Comment on above: The drugs N-Acetylcy steine and Metamizole may falsely depress this assay.Serum Triglycerides Reference Interval Normal <150 mg/dL Borderline high 150 - 199 mg/dL High 200 - 499 mg/dL Very High > or = 500 mg/dL WBC (Bld) [#/Vol] 5.2 10*3/uL 4.4-11.0 [facility] Blood erythrocytes count (nu mber/volume)Ordered By: Dr. Huddleston on 03-28-2023 RBC (Bld) [#/Vol] 3.83 10*6/uL 4.2-5.4 [facility] Blood hemoglobin measurement (mass/volume)Ordered By: Dr. Huddleston on 03-28-2023 Hemoglobin (Bld) [Mass/Vol] 11.9 g/dL 12.0-15.0 [facility] Blood lymphocytes/100 leukoc ytesOrdered By: Dr. Huddleston on 03-28-2023 Lymphocytes/100 WBC (Bld) 32.2 % 19-41 [facility] Blood monocytes/100 leukocyt esOrdered By: Dr. Huddleston on 03-28-2023 Monocytes/100 WBC (Bld) 9.4 % 0-10 [facility] Blood platelet mean volumeOr dered By: Dr. Huddleston on 03-28-2023 Platelet mean volume (Bld) [Entitic vol] 10.7 fL 6.2-12.0 [facility] Determination of erythrocyte mean corpuscular volume (MCV)Ordered By: Dr. Huddleston on 03-28-2023 MCV (RBC) [Entitic vol] 93.7 fL 81-99 [facility] Hematocrit Auto (Bld) [Volum e fraction]Ordered By: Dr. Huddleston on 03-28-2023 Hematocrit (Bld) [Volume fraction] 35.9 % 37-47 [facility] Laboratory - Chemistry and C hemistry - challengeOrdered By: Dr. Huddleston on 03-28-2023 ALP [Catalytic activity/Vol] 72 U/L 45-117 [facility] ALT [Catalytic activity/Vol] 21 U/L 13-56 [facility] CO2 [Moles/Vol] 25.0 mmol/L 21.0-32.0 [facility] Globulin (S) [Mass/Vol] 3.8 g/dL 2.2-4.2 [facility] Urea nitrogen/Creatinine [Mass ratio] 26.8 mg/mg 10-20 [facility] Laboratory - Hematology and Cell countsOrdered By: Dr. Huddleston on 03-28-2023 Erythrocyte distribution width (RBC) [Entitic vol] 46.4 fL 35.1-43.9 [facility] Erythrocyte distribution width (RBC) [Ratio] 13.5 % 11.6-14.6 [facility] Immature granulocytes/100 WBC (Bld) 0.400 % 0.0-0.9 [facility] Comment on above: IG% - Immature Granu locytes (promyelocytes, myelocytes and metamyelocytes) > 1% indicates that a LEFT SHIFT is Present. MCH (RBC) [Entitic mass] 31.1 pg 27.0-32.0 [facility] Nucleated RBC/100 WBC (Bld) [Ratio] 0 % 0-5 [facility] MCHC Auto (RBC) [Mass/Vol]Or dered By: Dr. Huddleston on 03-28-2023 MCHC (RBC) [Mass/Vol] 33.1 g/dL 32-36 [facility] No Panel InformationOrdered By: Dr. Huddleston on 03-28-2023 Estimated GFR (MDRD) Amer 81 mL/min >60 [facility] Comment on above: GFR Calc Estimated GFR (MDRD) Non-Af Amer 67 mL/min >60 [facility] Comment on above: Non- GFR Calc Thyroid Stimulating Hormone (TSH) 1.60 uIU/mL 0.358-3.74 [facility] Vitamin D 25-Hydroxy 32.1 ng/mL [facility] Comment on above: Vitamin D 25(OH) Sta tus Range Deficiency <20 ng/mL (50nmol/L) Insufficiency 20 - 30 ng/mL (50 - 75 nmol/L) Sufficiency 30 - 100 ng/mL (75 - 250 nmol/L) Toxicity >100 ng/mL (>250 nmol/L) Platelets bldOrdered By: Dr. Huddleston on 03-28-2023 Platelets (Bld) [#/Vol] 182 10*3/uL 150-450 [facility] Serum or plasma albumin susy urement (mass/volume)Ordered By: Dr. Huddleston on 03-28-2023 Albumin [Mass/Vol] 3.8 g/dL 3.2-5.0 [facility] Serum or plasma albumin/glob ulin mass ratioOrdered By: Dr. Huddleston on 03-28-2023 Albumin/Globulin [Mass ratio] 1.0 {ratio} 0.9-2.4 [facility] Serum or plasma calcium susy urement (mass/volume)Ordered By: Dr. Huddleston on 03-28-2023 Calcium [Mass/Vol] 9.1 mg/dL 8.5-10.1 [facility] Serum or plasma cholesterol in HDL measurement (mass/volume)Ordered By: Dr. Huddleston on 03-28-2023 Cholesterol in HDL [Mass/Vol] 85 mg/dL >40 [facility] Comment on above: The drugs N-Acetylcy steine and Metamizole may falsely depress this assay. Reference Range HDL <40 mg/dL Low HDL Cholesterol HDL >or= 60 mg/dL High HDL Cholesterol Serum or plasma cholesterol in VLDL measurement (mass/volume)Ordered By: Dr. Huddleston on 03-28-2023 Cholesterol in VLDL [Mass/Vol] 22 mg/dL 5-40 [facility] Serum or plasma creatinine m easurement (mass/volume)Ordered By: Dr. Huddleston on 03-28-2023 Creatinine [Mass/Vol] 0.86 mg/dL 0.55-1.02 [facility] Comment on above: The validity of the calculated GFR & GFRAA in patients over 70 years has not been determined. Clinical correlation is essential. Serum or plasma low density lipoprotein (LDL) cholesterol measurement (mass/volume)Ordered By: Dr. Huddleston on 03-28-2023 Cholesterol in LDL [Mass/Vol] 39 mg/dL 0-130 [facility] Serum or plasma urea nitroge n measurement (mass/volume)Ordered By: Dr. Huddleston on 03-28-2023 Urea nitrogen [Mass/Vol] 23 mg/dL 7-18 [facility] Thin prep Papanicolaou smear with manual screeningOrdered By: Dr. Huddleston on 03-28-2023 Thin prep Papanicolaou smear with manual screening 54 U/L 15-37 [facility] Thin prep Papanicolaou smear with manual screening 6 5-15 [facility] Absolute lymphocyte counton 09-25-2022 Lymphocytes Auto (Unsp spec) [#/Vol] 1.83 10*3/uL 0.83-4.51 [facility] Work Phone: Basophil percentageon 2021 Basophils/100 WBC (Bld) 0.5 % 0-1 [facility] Work Phone: [phone] Bilirubin [Mass/Vol] 0.50 mg/dL 0.20-1.00 [facility] Work Phone: [phone] Comment on above: For patients on eltr ombopag therapy, use of Dim[employer] [place] TBIL is not recommended. Chloride [Moles/Vol] 104 mmol/L 98-107 [facility] Work Phone: Cholesterol [Mass/Vol] 163 mg/dL <200 [facility] Work Phone: [phone] Comment on above: <200 mg/dL Desirable 200-240 mg/dL Borderline >240 mg/dL High Risk Eosinophils/100 WBC (Bld) 4.1 % 0-5 [facility] Work Phone: [phone] Glucose [Mass/Vol] 94 mg/dL 74-106 [facility] Work Phone: Neutrophils (Bld) [#/Vol] 3.2 10*3/uL 2.0-7.7 [facility] Work Phone: Neutrophils/100 WBC (Bld) 55.7 % 47-70 [facility] Work Phone: [phone] Potassium [Moles/Vol] 3.9 mmol/L 3.5-5.1 [facility] Work Phone: [phone] Protein [Mass/Vol] 7.2 g/dL 6.4-8.2 [facility] Work Phone: Sodium [Moles/Vol] 139 mmol/L 136-145 [facility] Work Phone: [phone] Triglyceride [Mass/Vol] 71 mg/dL <199 [facility] Work Phone: [phone] Comment on above: The drugs N-Acetylcy steine and Metamizole may falsely depress this assay.Serum Triglycerides Reference Interval Normal <150 mg/dL Borderline high 150 - 199 mg/dL High 200 - 499 mg/dL Very High > or = 500 mg/dL WBC (Bld) [#/Vol] 5.8 10*3/uL 4.4-11.0 [facility] Work Phone: Blood erythrocytes count (nu mber/volume)on 09-25-2022 RBC (Bld) [#/Vol] 4.00 10*6/uL 4.2-5.4 [facility] Work Phone: [phone] Blood hemoglobin measurement (mass/volume)on 09-25-2022 Hemoglobin (Bld) [Mass/Vol] 12.5 g/dL 12.0-15.0 [facility] Work Phone: Blood lymphocytes/100 leukoc yteson 09-25-2022 Lymphocytes/100 WBC (Bld) 31.6 % 19-41 [facility] Work Phone: Blood monocytes/100 leukocyt eson 09-25-2022 Monocytes/100 WBC (Bld) 7.9 % 0-10 [facility] Work Phone: Blood platelet mean volumeon 09-25-2022 Platelet mean volume (Bld) [Entitic vol] 11.0 fL 6.2-12.0 [facility] Work Phone: [phone] Determination of erythrocyte mean corpuscular volume (MCV)on 09-25-2022 MCV (RBC) [Entitic vol] 93.3 fL 81-99 [facility] Work Phone: Hematocrit Auto (Bld) [Volum e fraction]on 09-25-2022 Hematocrit (Bld) [Volume fraction] 37.3 % 37-47 [facility] Work Phone: [phone] Laboratory - Chemistry and C hemistry - challengeon 09-25-2022 ALP [Catalytic activity/Vol] 56 U/L 45-117 [facility] Work Phone: ALT [Catalytic activity/Vol] 23 U/L 13-56 [facility] Work Phone: [phone] CO2 [Moles/Vol] 25.0 mmol/L 21.0-32.0 [facility] Work Phone: Globulin (S) [Mass/Vol] 3.6 g/dL 2.2-4.2 [facility] Work Phone: Urea nitrogen/Creatinine [Mass ratio] 24.6 mg/mg 10-20 [facility] Work Phone: Laboratory - Hematology and Cell countson 09-25-2022 Erythrocyte distribution width (RBC) [Entitic vol] 45.9 fL 35.1-43.9 [facility] Work Phone: Erythrocyte distribution width (RBC) [Ratio] 13.3 % 11.6-14.6 [facility] Work Phone: Immature granulocytes/100 WBC (Bld) 0.200 % 0.0-0.9 [facility] Work Phone: Comment on above: IG% - Immature Granu locytes (promyelocytes, myelocytes and metamyelocytes) > 1% indicates that a LEFT SHIFT is Present. MCH (RBC) [Entitic mass] 31.3 pg 27.0-32.0 [facility] Work Phone: Nucleated RBC/100 WBC (Bld) [Ratio] 0 % 0-5 [facility] Work Phone: MCHC Auto (RBC) [Mass/Vol]on 09-25-2022 MCHC (RBC) [Mass/Vol] 33.5 g/dL 32-36 [facility] Work Phone: No Panel Informationon 09-25 Estimated GFR (MDRD) Amer 92 mL/min >60 [facility] Work Phone: Comment on above: GFR Calc Estimated GFR (MDRD) Non-Af Amer 76 mL/min >60 [facility] Work Phone: Comment on above: Non- GFR Calc Thyroid Stimulating Hormone (TSH) 1.44 uIU/mL 0.358-3.74 [facility] Work Phone: Vitamin D 25-Hydroxy 20.4 ng/mL [facility] Work Phone: Comment on above: Vitamin D 25(OH) Sta tus Range Deficiency <20 ng/mL (50nmol/L) Insufficiency 20 - 30 ng/mL (50 - 75 nmol/L) Sufficiency 30 - 100 ng/mL (75 - 250 nmol/L) Toxicity >100 ng/mL (>250 nmol/L) Platelets bldon 09-25-2022 Platelets (Bld) [#/Vol] 168 10*3/uL 150-450 [facility] Work Phone: Serum or plasma albumin susy urement (mass/volume)on 09-25-2022 Albumin [Mass/Vol] 3.6 g/dL 3.2-5.0 [facility] Work Phone: Serum or plasma albumin/glob ulin mass ratioon 09-25-2022 Albumin/Globulin [Mass ratio] 1.0 {ratio} 0.9-2.4 [facility] Work Phone: Serum or plasma calcium susy urement (mass/volume)on 09-25-2022 Calcium [Mass/Vol] 9.0 mg/dL 8.5-10.1 [facility] Work Phone: Serum or plasma cholesterol in HDL measurement (mass/volume)on 09-25-2022 Cholesterol in HDL [Mass/Vol] 94 mg/dL >40 [facility] Work Phone: Comment on above: The drugs N-Acetylcy steine and Metamizole may falsely depress this assay. Reference Range HDL <40 mg/dL Low HDL Cholesterol HDL >or= 60 mg/dL High HDL Cholesterol Serum or plasma cholesterol in VLDL measurement (mass/volume)on 09-25-2022 Cholesterol in VLDL [Mass/Vol] 14 mg/dL 5-40 [facility] Work Phone: Serum or plasma creatinine m easurement (mass/volume)on 09-25-2022 Creatinine [Mass/Vol] 0.77 mg/dL 0.55-1.02 [facility] Work Phone: Comment on above: The validity of the calculated GFR & GFRAA in patients over 70 years has not been determined. Clinical correlation is essential. Serum or plasma low density lipoprotein (LDL) cholesterol measurement (mass/volume)on 09-25-2022 Cholesterol in LDL [Mass/Vol] 55 mg/dL 0-130 [facility] Work Phone: Serum or plasma urea nitroge n measurement (mass/volume)on 09-25-2022 Urea nitrogen [Mass/Vol] 19 mg/dL 7-18 [facility] Work Phone: Thin prep Papanicolaou smear with manual screeningon 09-25-2022 Thin prep Papanicolaou smear with manual screening 50 U/L 15-37 [facility] Work Phone: Thin prep Papanicolaou smear with manual screening 10 5-15 [facility] Work Phone: Absolute lymphocyte counton 03-14-2022 Lymphocytes Auto (Unsp spec) [#/Vol] 1.82 10*3/uL 0.83-4.51 [facility] Work Phone: Basophil percentageon 2021 Basophils/100 WBC (Bld) 0.5 % 0-1 [facility] Work Phone: Bilirubin [Mass/Vol] 0.50 mg/dL 0.20-1.00 [facility] Work Phone: Comment on above: For patients on eltr ombopag therapy, use of Dimension [place] TBIL is not recommended. Chloride [Moles/Vol] 106 mmol/L 98-107 [facility] Work Phone: Cholesterol [Mass/Vol] 174 mg/dL <200 [facility] Work Phone: Comment on above: <200 mg/dL Desirable 200-240 mg/dL Borderline >240 mg/dL High Risk Eosinophils/100 WBC (Bld) 2.1 % 0-5 [facility] Work Phone: Glucose [Mass/Vol] 106 mg/dL 74-106 [facility] Work Phone: Comment on above: Fasting Glucose resu lt from 100 to 125 mg/dL suggests IMPAIRED HOMEOSTASIS per A.D.A. criteria. Neutrophils (Bld) [#/Vol] 3.3 10*3/uL 2.0-7.7 [facility] Work Phone: Neutrophils/100 WBC (Bld) 56.9 % 47-70 [facility] Work Phone: Potassium [Moles/Vol] 4.5 mmol/L 3.5-5.1 [facility] Work Phone: Protein [Mass/Vol] 8.0 g/dL 6.4-8.2 [facility] Work Phone: Sodium [Moles/Vol] 139 mmol/L 136-145 [facility] Work Phone: [phone] Triglyceride [Mass/Vol] 113 mg/dL <199 [facility] Work Phone: [phone] Comment on above: The drugs N-Acetylcy steine and Metamizole may falsely depress this assay.Serum Triglycerides Reference Interval Normal <150 mg/dL Borderline high 150 - 199 mg/dL High 200 - 499 mg/dL Very High > or = 500 mg/dL WBC (Bld) [#/Vol] 5.8 10*3/uL 4.4-11.0 [facility] Work Phone: [phone] Blood erythrocytes count (nu mber/volume)on 03-14-2022 RBC (Bld) [#/Vol] 4.33 10*6/uL 4.2-5.4 [facility] Work Phone: Blood hemoglobin measurement (mass/volume)on 03-14-2022 Hemoglobin (Bld) [Mass/Vol] 13.2 g/dL 12.0-15.0 [facility] Work Phone: Blood lymphocytes/100 leukoc yteson 03-14-2022 Lymphocytes/100 WBC (Bld) 31.5 % 19-41 [facility] Work Phone: Blood monocytes/100 leukocyt eson 03-14-2022 Monocytes/100 WBC (Bld) 8.8 % 0-10 [facility] Work Phone: Blood platelet mean volumeon 03-14-2022 Platelet mean volume (Bld) [Entitic vol] 10.8 fL 6.2-12.0 [facility] Work Phone: [phone] Determination of erythrocyte mean corpuscular volume (MCV)on 03-14-2022 MCV (RBC) [Entitic vol] 92.1 fL 81-99 [facility] Work Phone: [phone] Hematocrit Auto (Bld) [Volum e fraction]on 03-14-2022 Hematocrit (Bld) [Volume fraction] 39.9 % 37-47 [facility] Work Phone: [phone] Laboratory - Chemistry and C hemistry - challengeon 03-14-2022 ALP [Catalytic activity/Vol] 66 U/L 45-117 [facility] Work Phone: ALT [Catalytic activity/Vol] 26 U/L 13-56 [facility] Work Phone: [phone] CO2 [Moles/Vol] 28.0 mmol/L 21.0-32.0 [facility] Work Phone: [phone] Globulin (S) [Mass/Vol] 4.0 g/dL 2.2-4.2 [facility] Work Phone: [phone] Urea nitrogen/Creatinine [Mass ratio] 27.3 mg/mg 10-20 [facility] Work Phone: Laboratory - Hematology and Cell countson 03-14-2022 Erythrocyte distribution width (RBC) [Entitic vol] 43.7 fL 35.1-43.9 [facility] Work Phone: [phone] Erythrocyte distribution width (RBC) [Ratio] 12.8 % 11.6-14.6 [facility] Work Phone: [phone] Immature granulocytes/100 WBC (Bld) 0.200 % 0.0-0.9 [facility] Work Phone: [phone] Comment on above: IG% - Immature Granu locytes (promyelocytes, myelocytes and metamyelocytes) > 1% indicates that a LEFT SHIFT is Present. MCH (RBC) [Entitic mass] 30.5 pg 27.0-32.0 [facility] Work Phone: Nucleated RBC/100 WBC (Bld) [Ratio] 0 % 0-5 [facility] Work Phone: MCHC Auto (RBC) [Mass/Vol]on 03-14-2022 MCHC (RBC) [Mass/Vol] 33.1 g/dL 32-36 [facility] Work Phone: No Panel Informationon 03-14 Estimated GFR (MDRD) Amer 83 mL/min >60 [facility] Work Phone: Comment on above: GFR Calc Estimated GFR (MDRD) Non-Af Amer 69 mL/min >60 [facility] Work Phone: Comment on above: Non- GFR Calc Thyroid Stimulating Hormone (TSH) 1.69 uIU/mL 0.358-3.74 [facility] Work Phone: Vitamin D 25-Hydroxy 27.2 ng/mL [facility] Work Phone: Comment on above: Vitamin D 25(OH) Sta tus Range Deficiency <20 ng/mL (50nmol/L) Insufficiency 20 - 30 ng/mL (50 - 75 nmol/L) Sufficiency 30 - 100 ng/mL (75 - 250 nmol/L) Toxicity >100 ng/mL (>250 nmol/L) Platelets bldon 03-14-2022 Platelets (Bld) [#/Vol] 184 10*3/uL 150-450 [facility] Work Phone: Serum or plasma albumin susy urement (mass/volume)on 03-14-2022 Albumin [Mass/Vol] 4.0 g/dL 3.2-5.0 [facility] Work Phone: Serum or plasma albumin/glob ulin mass ratioon 03-14-2022 Albumin/Globulin [Mass ratio] 1.0 {ratio} 0.9-2.4 [facility] Work Phone: Serum or plasma calcium susy urement (mass/volume)on 03-14-2022 Calcium [Mass/Vol] 9.4 mg/dL 8.5-10.1 [facility] Work Phone: Serum or plasma cholesterol in HDL measurement (mass/volume)on 03-14-2022 Cholesterol in HDL [Mass/Vol] 77 mg/dL >40 [facility] Work Phone: Comment on above: The drugs N-Acetylcy steine and Metamizole may falsely depress this assay. Reference Range HDL <40 mg/dL Low HDL Cholesterol HDL >or= 60 mg/dL High HDL Cholesterol Serum or plasma cholesterol in VLDL measurement (mass/volume)on 03-14-2022 Cholesterol in VLDL [Mass/Vol] 23 mg/dL 5-40 [facility] Work Phone: Serum or plasma creatinine m easurement (mass/volume)on 03-14-2022 Creatinine [Mass/Vol] 0.84 mg/dL 0.55-1.02 [facility] Work Phone: Comment on above: The validity of the calculated GFR & GFRAA in patients over 70 years has not been determined. Clinical correlation is essential. Serum or plasma low density lipoprotein (LDL) cholesterol measurement (mass/volume)on 03-14-2022 Cholesterol in LDL [Mass/Vol] 74 mg/dL 0-130 [facility] Work Phone: Serum or plasma urea nitroge n measurement (mass/volume)on 03-14-2022 Urea nitrogen [Mass/Vol] 23 mg/dL -18 [facility] Work Phone: Thin prep Papanicolaou smear with manual screeningon 03-14-2022 Thin prep Papanicolaou smear with manual screening 54 U/L 15-37 [facility] Work Phone: Thin prep Papanicolaou smear with manual screening 5 5-15 [facility] Work Phone: Darius 12-30-2017 CNOV Office Visit (AGCARDWST) ----GOGO WARE ([id number]) [address] [facility] Time Provider Department12/30/17 1:30 PM SERGIO CARABALLO During your visit today, we recorded the following information about you: Pulse Blood pressure Weight Height 64/minute 140/62 83.1 kg 1.651 Ashley Caraballo MD 12/31/2017 4:54 PM SignedPERTINENT CARDIAC HISTORYHTNTPN elevationHLObesityAortic stenosis - mildADHERENCE TO GUIDELINESACE-I or ARB for HF with prior LVEFANDlt;40 (NQF 0081) - N/AASA or Plavix for ASHD (NQF 0067) - metBeta madhu for ASHD with prior VA or prior LVEFANDlt;40 (NQF 0070) - N/ABeta [...] with treatment plan.This note was generated using [employer] voice recognition system, and there may besome [...] significance. Sheopted for medical therapy.Electronically Signed:Sergio Caraballo [facility] 2017 1:45 [facility]Salud Marie Chi Provider: SERGIO CARABALLO [[id number]]Allergies As of Date: 12/30/2017(No Known Allergies)Date Reviewed: [...] Status:Closed by SERGIO CARABALLO MD on 12/31/17 [facility] PROGRESSon 12-30-2017 PROGRESS HNO ID: [id number] thor: Sergio Ha: (none)Author Type: PhysicianType: Progress NotesFiled: 12/31/2017 4:54 PMNote Text:PERTINENT CARDIAC HISTORYHTNTPN elevationHLObesityAortic stenosis - mildADHERENCE TO GUIDELINESACE-I or ARB for HF with prior LVEF<40 (NQF 0081) - N/AASA or Plavix for ASHD (NQF 0067) - metBeta madhu for ASHD with prior VA or prior LVEF<40 (NQF 0070) - N/ABeta [...] with treatment plan.This note was generated using [employer] voice recognition system, and theremay be some [...] SLEEPING- GlaucomaPAST SURGICAL HISTORYProcedure Laterality Date- PROCEDURE 2006 BOTH HIPS REPLACED- PROCEDURE 2009 LASER [...] She opted for medical therapy.Electronically Signed:Sergio Caraballo, [facility] 2017 1:45 [facility]:Eh Huddleston MD [facility] CNOVon 12-23-2017 CN Office Visit (AGCTERENCEWST) ----GOGO WARE ([id number]) 1940 FDate Time Provider Department12/23/17 1:15 PM SERGIO CARABALLO During your visit today, we recorded the following information about you: Pulse Blood pressure Weight Height 62/minute 148/76 82.3 kg 1.651 Ashley Caraballo MD 12/23/2017 5:08 PM SignedPERTINENT CARDIAC HISTORYHTNTPN elevationHLObesityAortic stenosis - mildADHERENCE TO GUIDELINESACE-I or ARB for HF with prior LVEFANDlt;40 (NQF 0081) - N/AASA or Plavix for ASHD (NQF 0067) - metBeta madhu for ASHD with prior VA or prior LVEFANDlt;40 (NQF 0070) - N/ABeta [...] will be followed.She was offered angiography at [facility], but prefers to have this doneat [...] with treatment plan.This note was generated using [employer] voice recognition system, and there may besome incorrect words, spellings, and punctuation that were not noted inchecking the note before saving.DIAGNOSIS FOR VISIT:NSTEMINear-syncopeHyper tensionHISTORY OF PRESENT ILLNESSGogo Ware is a 77-year-old woman who is seen at her request for secondopinion.She was recently admitted to [facility] following a an episode of nearsyncope which occurred in the setting of community-acquired pneumonia andlikely dehydration. Her troponin was detectable on admission and graduallyincreased to the 1.5 range. She had no chest discomfort. [facility] recommended further evaluation includingangiography. She declined [...] and oriented x4.Musculoskeletal: No joint deformities.Records from [facility] were reviewed. Troponin peaked at about 1.5. HisEKG showed no acute change.Echocardiogram showed normal ejection fraction. No wall motion abnormality wasdescribed. There was mild aortic stenosis.There was evidence of left-sided pneumonia on chest x-ray although white countwas normal. CTA showed no evidence of thromboembolic disease.She was discharged on aspirin, Plavix, Coreg, atorvastatin and valsartan..Electronically Signed:[facility]ergio [facility]aballo [facility] 1[facility] PMCC: Alise Davison MD 12/23/2017 1:34 PM SignedLIFESTYLE [...] family physician about programs in your area.Moose Alvarez, RN, RN 12/23/2017 2:56 PM SignedReviewed cath packet with patient, she verbalizes understanding and allquestions answered to her satisfaction.Referring Provider: SERGIO CARABALLO [[id number]]Allergies As of Date: 12/23/2017(No Known Allergies)Date Reviewed: 07/28/2015Reviewed by: Eryn Contreras LPN - Fully AssessedReason for Visit: New Patient [172] Cmt: hospital f/uPrimary Visit Diagnosis:NSTEMI (non-ST elevated myocardial infarction) (HCC) [I21.4] Other Visit Diagnosis:Essential hypertension [I10]Order(s):LEFT HEART CATH,PERCUTANEOUS [28966HIW] Order #: [id number]: 1 BASIC METABOLIC PNL [SQBMP] Order #: [id number] FUTURE CBC [SQCBC] Order #: [id number] FUTURE PROTHROMBIN TIME/PT [SQPT] Order #: [id number] FUTURE XR CHEST 2V FRONTAL/LAT [[id number]] Order #: [id number] FUTUREPrescriptions as of 12/23/2017 Sig: BRIMONIDINE 0.2 [...] the following areas and commit to making snf changes. EAT A WHOLE FOOD, PLANT BASED [...] about programs in your area.Visit Notes:>> Moose (Fortino) FORTINO Alvarez Mon Dec 23, 2017 2:55 PM Status: SignedReviewed cath packet with patient, she verbalizes understanding and allquestions answered to her satisfaction.Classic SmartForms filed during this visit:Extended VitalsEncounter Number: [id number] Status:Closed by SERGIO CARABALLO MD on 12/23/17 [facility] PROGRESSon 12-23-2017 PROGRESS HNO ID: [id number] thor: Sergio Ha: (none)Author Type: PhysicianType: Progress NotesFiled: 12/23/2017 5:08 PMNote Text:PERTINENT CARDIAC HISTORYHTNTPN elevationHLObesityAortic stenosis - mildADHERENCE TO GUIDELINESACE-I or ARB for HF with prior LVEF<40 (NQF 0081) - N/AASA or Plavix for ASHD (NQF 0067) - metBeta madhu for ASHD with prior VA or prior LVEF<40 (NQF 0070) - N/ABeta [...] will be followed.She was offered angiography at [facility], but [facility]. This will be arranged for her in [...] with treatment plan.This note was generated using [employer] voice recognition system, and theremay be some incorrect words, spellings, and punctuation that were notnoted in checking the note before saving.DIAGNOSIS FOR VISIT:NSTEMINear-syncopeHyper tensionHISTORY OF PRESENT ILLNESSGogo Ware is a 77-year-old woman who [facility]She was recently admitted to [facility] following a an episode ofnear syncope which occurred in the setting of community-acquired pneumoniaand likely dehydration. Her troponin was detectable on admission andgradually increased to the 1.5 range. She had no chest discomfort. She wasseen by [facility] ward helper who recommended furtherevaluation including angiography. She declined [...] PROCEDURE 1999, 2006 BOTH HIPS REPLACED- PROCEDURE 2010 LASER OU FOR GLAUCOMAFAMILY HISTORYProblem Relation Age [...] and oriented x4.Musculoskeletal: No joint deformities.Records from [facility] were reviewed. Troponin peaked at about [...] MDFebruary 2017 1:34 PMCC: Fritz Little MD Normal [facility] No Panel Information [facility] Vital Signs Date Time Vital Sign Value Performing Clinician Facility 06-07-2025 09:54-0400 Body temperature 97.3 [degF] Dr. Eh Huddleston MD Work Phone: 3(115)153-923325 [place] [address] 06-07-2025 09:54-0400 Diastolic blood pressure 56 mm[Hg] Dr. Eh Huddleston MD Work Phone: 4(007)834-503225 [place] [address] 06-07-2025 09:54-0400 Heart rate 67 /min Dr. Eh Huddleston MD Work Phone: 9(815)054-753525 [place] [address] 06-07-2025 09:54-0400 Respiratory rate 16 /min Dr. Eh Huddleston MD Work Phone: 4(472)113-813535 [place] [address] 06-07-2025 09:54-0400 SaO2% (BldA) [Mass fraction] 97 % Dr. Eh Huddleston MD Work Phone: 7(706)242-759935 [place] [address] 06-07-2025 09:54-0400 Systolic blood pressure 125 mm[Hg] Dr. Eh Huddleston MD Work Phone: 6(059)479-865035 [place] [address] 06-02-2025 16:23-0400 Body height 165.[address] Eh Huddleston MD Work Phone: 0(515)108-209035 [place] [address] 06-02-2025 16:23-0400 Body weight 81.[address] Eh Huddleston MD Work Phone: 3(109)237-373935 [place] [address] 06-01-2025 12:00-0400 Body mass index (BMI) [Ratio] 29.9 kg/m2 Dr. Eh Huddleston MD Work Phone: 7(618)166-959725 [place] [address] 05-27-2025 17:21-0400 Diastolic blood pressure 57 mm[Hg] Dr. Eh Huddleston MD Work Phone: 0(399)778-827325 [place] [address] 05-27-2025 17:21-0400 Heart rate 77 /min Dr. Eh Huddleston MD Work Phone: 6(838)821-117425 [place] [address] 05-27-2025 17:21-0400 Systolic blood pressure 156 mm[Hg] Dr. Eh Huddleston MD Work Phone: 6(187)753-130235 [place] [address] 05-27-2025 08:41-0400 Body temperature 97.6 [degF] Dr. Eh Huddleston MD Work Phone: [facility] 05-27-2025 08:41-0400 Respiratory rate 16 /min Dr. Eh Huddleston MD Work Phone: [facility] 05-27-2025 08:41-0400 SaO2% (BldA) [Mass fraction] 97 % Dr. Eh Huddleston MD Work Phone: 1(049)271-281225 [place] [address] 05-26-2025 15:27-0400 Body height 165.[address] Eh Huddleston MD Work Phone: 2(047)823-386935 [place] [address] 05-26-2025 15:27-0400 Body weight 80.[address] Eh Huddleston MD Work Phone: 4(140)801-774935 [place] [address] 05-25-2025 12:33-0400 Body mass index (BMI) [Ratio] 29.3 kg/m2 Dr. Eh Huddleston MD Work Phone: 6(217)120-362935 [place] [address] 05-14-2025 11:28-0400 Body temperature 97.8 [degF] Dr. Eh Huddleston MD Work Phone: 8(563)404-444435 [place] [address] 05-14-2025 11:28-0400 Diastolic blood pressure 43 mm[Hg] Dr. Eh Huddleston MD Work Phone: 7(211)852-971735 [place] [address] 05-14-2025 11:28-0400 Heart rate 74 /min Dr. Eh Huddleston MD Work Phone: 8(493)059-592025 [place] [address] 05-14-2025 11:28-0400 Respiratory rate 16 /min Dr. Eh Huddleston MD Work Phone: 3(883)909-825025 [place] [address] 05-14-2025 11:28-0400 SaO2% (BldA) [Mass fraction] 100 % Dr. Eh Huddleston MD Work Phone: 8(533)994-608425 [place] [address] 05-14-2025 11:28-0400 Systolic blood pressure 129 mm[Hg] Dr. Eh Huddleston MD Work Phone: 7(775)839-122225 [place] [address] 05-14-2025 00:24-0400 Body mass index (BMI) [Ratio] 27.3 kg/m2 Dr. Eh Huddleston MD Work Phone: 3(330)772-261325 [place] [address] 05-12-2025 14:41-0400 Body height 166.[address] Eh Huddlestno MD Work Phone: 2(764)757-664635 [place] [address] 05-12-2025 14:41-0400 Body weight 75.[address] Eh Huddleston MD Work Phone: 4(346)267-888835 [place] [address] 05-07-2025 14:13-0400 Body temperature 97.6 [degF] Dr. Eh Huddleston MD Work Phone: 0(518)320-579035 [place] [address] 05-07-2025 14:13-0400 Diastolic blood pressure 56 mm[Hg] Dr. Eh Huddleston MD Work Phone: 6(998)032-194035 [place] [address] 05-07-2025 14:13-0400 Heart rate 75 /min Dr. Eh Huddleston MD Work Phone: 7(419)861-152135 [place] [address] 05-07-2025 14:13-0400 Respiratory rate 12 /min Dr. Eh Huddleston MD Work Phone: 8(446)656-744735 [place] [address] 05-07-2025 14:13-0400 SaO2% (BldA) [Mass fraction] 97 % Dr. Eh Huddleston MD Work Phone: 0(363)825-273735 [place] [address] 05-07-2025 14:13-0400 Systolic blood pressure 109 mm[Hg] Dr. Eh Huddleston MD Work Phone: 2(213)740-087035 [place] [address] 05-07-2025 07:09-0400 Body height 165.[address] Eh Huddleston MD Work Phone: 8(910)085-001735 [place] [address] 04-07-2025 07:10-0400 Body height 166.[address] Eh Huddleston MD Work Phone: 1(523)542-147635 [place] [address] 04-07-2025 07:10-0400 Body weight 78.[address] Eh Huddleston MD Work Phone: 2(323)326-477335 [place] [address] 03-28-2025 00:32-0400 Body weight 77.[address] Eh Huddleston MD Work Phone: [facility] 03-11-2025 10:21-0400 Body height 166.[address] Eh Huddleston MD Work Phone: [facility] 03-11-2025 10:21-0400 Body weight 77.[address] Eh Huddleston MD Work Phone: [facility] 03-02-2025 13:14-0400 Body height 166.4 cm Lucy Mccall TEST WORKER.ADMINISTRATIVE TECH Work Phone: [facility] 03-02-2025 13:14-0400 Body mass index (BMI) [Ratio] 27.2 kg/m2 Lucy Mccall TEST WORKER.ADMINISTRATIVE TECH Work Phone: [facility] 03-02-2025 13:14-0400 Body weight 75.3 kg Lucy Mccall TEST WORKER.ADMINISTRATIVE TECH Work Phone: [facility] 03-02-2025 13:14-0400 Diastolic blood pressure 58 mm[Hg] Lucy Mccall TEST WORKER.ADMINISTRATIVE TECH Work Phone: [facility] 03-02-2025 13:14-0400 Respiratory rate 17 /min Lucy Mccall TEST WORKER.ADMINISTRATIVE TECH Work Phone: [facility] 03-02-2025 13:14-0400 SaO2% (BldA) [Mass fraction] 98 % Lucy Mccall TEST WORKER.ADMINISTRATIVE TECH Work Phone: [facility] 03-02-2025 13:14-0400 Systolic blood pressure 145 mm[Hg] Lucy Mccall TEST WORKER.ADMINISTRATIVE TECH Work Phone: [facility] 02-10-2025 11:37-0400 Body weight 77.[address] Eh Huddleston MD Work Phone: [facility] 01-14-2025 10:38-0400 Body mass index (BMI) [Ratio] 26.9 kg/m2 Dr. Eh Huddleston MD Work Phone: [facility] 01-14-2025 10:33-0400 Body height 166.[address] Eh Huddleston MD Work Phone: [facility] 01-14-2025 10:33-0400 Body weight 74.[address] Eh Huddleston MD Work Phone: [facility] 01-14-2025 10:16-0400 Diastolic blood pressure 53 mm[Hg] Dr. Eh Huddleston MD Work Phone: [facility] 01-14-2025 10:16-0400 Heart rate 64 /min Dr. Eh Huddleston MD Work Phone: [facility] 01-14-2025 10:16-0400 SaO2% (BldA) [Mass fraction] 97 % Dr. Eh Huddleston MD Work Phone: [facility] 01-14-2025 10:16-0400 Systolic blood pressure 128 mm[Hg] Dr. Eh Huddleston MD Work Phone: [facility] 12-23-2024 13:48-0500 Body height 165.1 cm Deng Delmont TEST WORKER.ADMINISTRATIVE TECH Work Phone: [facility] 12-23-2024 13:48-0500 Body mass index (BMI) [Ratio] 27.29 kg/m2 Deng Delmont TEST WORKER.ADMINISTRATIVE TECH Work Phone: [facility] 12-23-2024 13:48-0500 Body weight 74.39 kg Deng Delmont TEST WORKER.ADMINISTRATIVE TECH Work Phone: [facility] 12-23-2024 13:48-0500 Diastolic blood pressure 53 mm[Hg] Deng Delmont TEST WORKER.ADMINISTRATIVE TECH Work Phone: [facility] 12-23-2024 13:48-0500 Heart rate 64 /min Deng Delmont TEST WORKER.ADMINISTRATIVE TECH Work Phone: [facility] 12-23-2024 13:48-0500 Respiratory rate 18 /min Deng Delmont TEST WORKER.ADMINISTRATIVE TECH Work Phone: [facility] 12-23-2024 13:48-0500 SaO2% (BldA) [Mass fraction] 97 % Deng Delmont TEST WORKER.ADMINISTRATIVE TECH Work Phone: [facility] 12-23-2024 13:48-0500 Systolic blood pressure 128 mm[Hg] Deng Delmont TEST WORKER.ADMINISTRATIVE TECH Work Phone: [facility] 11-10-2024 09:59-0500 Body mass index (BMI) [Ratio] 27.29 kg/m2 Deng Arya TEST WORKER.ADMINISTRATIVE TECH Work Phone: [facility] 11-10-2024 09:59-0500 Body weight 74.39 kg Deng Arya TEST WORKER.ADMINISTRATIVE TECH Work Phone: [facility] 11-10-2024 09:59-0500 Diastolic blood pressure 55 mm[Hg] Deng Arya TEST WORKER.ADMINISTRATIVE TECH Work Phone: [facility] 11-10-2024 09:59-0500 Heart rate 62 /min Deng Arya TEST WORKER.ADMINISTRATIVE TECH Work Phone: [facility] 11-10-2024 09:59-0500 Respiratory rate 16 /min Deng Arya TEST WORKER.ADMINISTRATIVE TECH Work Phone: [facility] 11-10-2024 09:59-0500 SaO2% (BldA) [Mass fraction] 97 % Deng Arya TEST WORKER.ADMINISTRATIVE TECH Work Phone: [facility] 11-10-2024 09:59-0500 Systolic blood pressure 133 mm[Hg] Deng Arya TEST WORKER.ADMINISTRATIVE TECH Work Phone: [facility] 10-30-2024 09:13-0500 SaO2% (BldA) [Mass fraction] 100 % JAMES LINDO [facility] Comment on above: Order Comment: Specimen Type: ARTERIAL B LOOD SPECIMEN Ordering Facility: [facility] Address: [address] [place] [address] Performed By: #### A LLBG #### [facility] CLIA [id number] [address] [place], [place] [address] [address] [place] 10-29-2024 13:51-0500 Body height 165.1 cm [facility] 10-29-2024 13:51-0500 Body mass index (BMI) [Ratio] 27.12 kg/m2 [facility] 10-29-2024 13:51-0500 Body weight 73.94 kg [facility] 10-29-2024 13:51-0500 Diastolic blood pressure 70 mm[Hg] [facility] 10-29-2024 13:51-0500 Heart rate 65 /min [facility] 10-29-2024 13:51-0500 SaO2% (BldA) [Mass fraction] 96 % [facility] 10-29-2024 13:51-0500 Systolic blood pressure 138 mm[Hg] [facility] 08-31-2024 09:36-0500 Diastolic blood pressure 59 mm[Hg] Odilon Wells MD Work Phone: [facility] 08-31-2024 09:36-0500 Systolic blood pressure 144 mm[Hg] Odilon Wells MD Work Phone: [facility] 08-31-2024 09:33-0500 Body height 165.1 cm Odilon Wells MD Work Phone: [facility] 08-31-2024 09:33-0500 Body mass index (BMI) [Ratio] 27.22 kg/m2 Odilon Wells MD Work Phone: [facility] 08-31-2024 09:33-0500 Body weight 74.21 kg Odilon Wells MD Work Phone: [facility] 08-31-2024 09:33-0500 Heart rate 65 /min Odilon Wells MD Work Phone: [facility] 08-31-2024 09:33-0500 Respiratory rate 18 /min Odilon Wells MD Work Phone: [facility] 08-31-2024 09:33-0500 SaO2% (BldA) [Mass fraction] 98 % Odilon Wells MD Work Phone: [facility] Comment on above: 04-28-2024 14:32-0400 Body height 165.1 cm James Lindo MD Work Phone: [facility] 04-28-2024 14:32-0400 Body mass index (BMI) [Ratio] 27.12 kg/m2 James Lindo MD Work Phone: [facility] 04-28-2024 14:32-0400 Body weight 73.94 kg James Lindo MD Work Phone: [facility] 04-28-2024 14:32-0400 Diastolic blood pressure 66 mm[Hg] James Lindo MD Work Phone: [facility] 04-28-2024 14:32-0400 Heart rate 58 /min James Lindo MD Work Phone: [facility] 04-28-2024 14:32-0400 SaO2% (BldA) [Mass fraction] 97 % James Lindo MD Work Phone: [facility] 04-28-2024 14:32-0400 Systolic blood pressure 137 mm[Hg] James Lindo MD Work Phone: [facility] 04-06-2024 13:03-0400 Body height 165.1 cm Pacc 1 Work Phone: [facility] 04-06-2024 13:03-0400 Body mass index (BMI) [Ratio] 27.96 kg/m2 Pacc 1 Work Phone: [facility] 04-06-2024 13:03-0400 Body temperature 98.6 [degF] Pacc 1 Work Phone: [facility] 04-06-2024 13:03-0400 Body weight 76.2 kg Pacc 1 Work Phone: [facility] 04-06-2024 13:03-0400 Diastolic blood pressure 80 mm[Hg] Pacc 1 Work Phone: [facility] 04-06-2024 13:03-0400 Heart rate 60 /min Pacc 1 Work Phone: [facility] 04-06-2024 13:03-0400 Respiratory rate 14 /min Pacc 1 Work Phone: [facility] 04-06-2024 13:03-0400 SaO2% (BldA) [Mass fraction] 98 % Pacc 1 Work Phone: [facility] 04-06-2024 13:03-0400 Systolic blood pressure 124 mm[Hg] Pacc 1 Work Phone: [facility] 09-10-2023 14:04-0500 Body height 166.[address] Eh Huddleston Work Phone: [facility] 09-10-2023 14:04-0500 Body mass index (BMI) [Ratio] 26.9 kg/m2 Dr. Eh Huddleston Work Phone: [facility] 09-10-2023 14:04-0500 Body weight 74.[address] Eh Huddleston Work Phone: [facility] 09-10-2023 14:04-0500 Diastolic blood pressure 72 mm[Hg] Dr. Eh Huddleston Work Phone: [facility] 09-10-2023 14:04-0500 Heart rate 65 /min Dr. Eh Huddleston Work Phone: [facility] 09-10-2023 14:04-0500 Respiratory rate 18 /min Dr. Eh Huddleston Work Phone: [facility] 09-10-2023 14:04-0500 SaO2% (BldA) [Mass fraction] 98 % Dr. Eh Huddleston Work Phone: [facility] 09-10-2023 14:04-0500 Systolic blood pressure 133 mm[Hg] Dr. Eh Huddleston Work Phone: [facility] 08-05-2023 15:27-0400 Diastolic blood pressure 80 mm[Hg] Dr. Eh Huddleston Work Phone: [facility] 08-05-2023 15:27-0400 Systolic blood pressure 150 mm[Hg] Dr. Eh Huddleston Work Phone: [facility] 08-05-2023 14:46-0400 Body mass index (BMI) [Ratio] 26.4 kg/m2 Dr. Eh Huddleston Work Phone: [facility] 08-05-2023 14:46-0400 Body weight 73.[address] Eh Huddleston Work Phone: [facility] 08-05-2023 14:46-0400 Heart rate 66 /min Dr. Eh Huddleston Work Phone: [facility] 08-05-2023 14:46-0400 Respiratory rate 18 /min Dr. Eh Huddleston Work Phone: [facility] 08-05-2023 14:46-0400 SaO2% (BldA) [Mass fraction] 97 % Dr. Eh Huddleston Work Phone: [facility] 06-06-2022 13:05-0400 Body height 166.[address] Eh Huddleston Work Phone: [facility] Work Phone: 06-06-2022 13:05-0400 Body mass index (BMI) [Ratio] 28.2 kg/m2 Dr. Eh Huddleston Work Phone: [facility] Work Phone: 06-06-2022 13:05-0400 Body weight 78.[address] Eh Huddleston Work Phone: [facility] Work Phone: 06-06-2022 13:05-0400 Diastolic blood pressure 80 mm[Hg] Dr. Eh Huddleston Work Phone: [facility] Work Phone: 06-06-2022 13:05-0400 Heart rate 56 /min Dr. Eh Huddleston Work Phone: [facility] Work Phone: 06-06-2022 13:05-0400 Respiratory rate 18 /min Dr. Eh Huddleston Work Phone: [facility] Work Phone: 06-06-2022 13:05-0400 Systolic blood pressure 148 mm[Hg] Dr. Eh Huddleston Work Phone: [facility] Work Phone: Encounters Encounter Date Encounter Type Care Provider Facility Start: 06-24-2025 ambulatory Efewongbe Oleghe OLS Fa cility:[facility] Start: 06-23-2025 End: 06-23-2025 Maricarmen DOW [facility] Work Phone: Start: 06-23-2025 End: 06-23-[address] Eh Huddleston MD Work Phone: -[facility] Start: 06-17-2025 ambulatory Efewongbe Olesakinae OLS Fa cility:[facility] Start: 06-17-2025 Nereyda Jennings Start: 06-16-2025 ambulatory Efewongbe Taylae OLS Fa cility:[facility] Start: 06-16-2025 Nereyda Jennings Start: 06-15-2025 End: 06-15-2025 ambulatory Odilon Wells MD Work Phone: Cardiology Comment on above: Per our discussion Start: 06-15-2025 End: 06-15-2025 E-mail encounter from caregiver Odilon Wells MD Work Phone: Cardiology Start: 06-10-2025 ambulatory Vimal SALMERON Facil ity:[facility] Start: 06-10-2025 Dr. Vimal Angulo MD -[facility] Start: 06-08-2025 ambulatory Vimal SALMERON Facil ity:[facility] Start: 06-08-[address] Vimal culver MD -[facility] [facility] Start: 06-08-2025 Dr. Vimal GonzalesS [facility] Start: 06-07-2025 ambulatory Danny Aden lity:[facility] Start: 06-03-2025 Non-patient / Non-visit Dr. Katelyn quijano MD -[facility] Start: 06-03-2025 [facility] Start: 06-01-2025 Non-patient / Non-visit Dr. Basim lópez MD -[facility] Start: 06-01-2025 End: 06-01-[address] Eh Huddleston MD Work Phone: -Cardiovascular Services Start: 06-01-2025 End: 06-01-[address] Eh Huddleston MD -Cardiovascular Services Work Phone: Start: 06-01-2025 End: 06-01-2025 Dr. Basim Murillo MD -[facility] Start: 06-01-2025 End: 06-01-2025 ambulatory Eh Huddleston Facility:[facility] Start: 05-14-2025 End: 06-07-2025 Dr. Eh Huddleston MD -Transitional Care [facility] Start: 05-14-2025 ambulatory [facility] [place] [facility] [place]: 05-14-2025 End: 06-07-2025 Evaluation and management of inpatient Dr. Eh Huddleston MD -Transitional Care Unit Start: 05-14-2025 Non-patient / Non-visit Dr. Manny Murdock MD -[facility] Work Phone: Start: 05-14-2025 Dr. Manny Murdock MD -[facility] Work Phone: Start: 05-13-2025 Non-patient / Non-visit Dr. Manny Murdock MD -[facility] Work Phone: Start: 05-13-2025 Dr. Manny Murdock MD -[facility] Work Phone: Start: 05-12-2025 Non-patient / Non-visit Dr. Manny Murdock MD -[facility] Work Phone: Start: 05-12-2025 Dr. Manny Murdock MD -[facility] Work Phone: Start: 05-11-2025 ambulatory Tracy Kaur Facility:[facility] Start: 05-11-2025 Non-patient / Non-visit Dr. Tracy tabor MD -[facility] Start: 05-11-2025 Dr. Tracy Kaur MD -[facility] Start: 05-11-2025 Non-patient / Non-visit Dr. Paige Casiano [facility] Work Phone: Start: 05-11-2025 Dr. Sourav braun [facility] Work Phone: Start: 05-10-2025 Non-patient / Non-visit Dr. Paige Casiano [facility] Work Phone: Start: 05-10-2025 Dr. Sourav braun DO [facility] Work Phone: Start: 05-09-2025 Non-patient / Non-visit Dr. Paige Casiano [facility] Work Phone: Start: 05-09-2025 Dr. Sourav braun [facility] Work Phone: Start: 05-08-2025 Non-patient / Non-visit Dr. Paige Casiano [facility] Work Phone: Start: 05-08-2025 Dr. Sourav braun [facility] Work Phone: Start: 05-08-2025 End: 05-08-2025 ambulatory Azul Pratt Facility:[facility] Start: 05-08-2025 End: 05-08-2025 Non-patient / Non-visit Dr. Azul Pratt MD -[facility] Work Phone: Start: 05-08-2025 End: 05-08-2025 Dr. Azul Pratt MD -[facility] Work Phone: Start: 05-07-2025 Non-patient / Non-visit Dr. Paige Casiano [facility] Work Phone: Start: 05-07-2025 Dr. Sourav braun [facility] Work Phone: Start: 05-07-2025 ambulatory Santhosh [place] ty:[facility] Start: 05-07-2025 End: 05-14-2025 Evaluation and management of inpatient Dr. Sourav Casiano DO -[facility] 3 Work Phone: Start: 05-07-2025 End: 05-14-2025 Dr. Manny Murdock MD -Progressive [facility] Work Phone: Start: 04-28-2025 End: 05-27-[address] Eh Huddleston MD Work Phone: -Cardiac Rehab Work Phone: Start: 04-28-[address] Eh torres MD Work Phone: -Cardiac Rehab Work Phone: Start: 04-28-2025 End: 05-27-2025 Dr. Eh Huddleston MD Work Phone: -Cardiac Rehab Work Phone: Start: 04-28-2025 End: 05-27-[address] Eh Huddleston MD Work Phone: -Cardiac Rehab Start: 04-26-2025 End: 04-26-[address] Eh Huddleston MD Work Phone: -Cardiac Rehab Start: 04-26-2025 End: 04-26-[address] Eh Huddleston MD Work Phone: -Cardiac Rehab Work Phone: Start: 04-26-2025 End: 04-26-2025 Dr. Eh Huddleston MD Work Phone: -Cardiac Rehab Work Phone: Start: 04-02-[address] Eh torres MD Work Phone: -Cardiac Rehab Work Phone: Start: 03-31-2025 End: 03-31-[address] Eh Huddleston MD Work Phone: [facility] Work Phone: Start: 03-31-2025 End: 03-31-[address] Eh Huddleston MD -Laboratory Work Phone: Start: 03-31-2025 End: 03-31-2025 Dr. Eh Huddleston MD -Laboratory Work Phone: Start: 03-31-2025 End: 03-31-2025 ambulatory Eh Huddleston Facility:[facility] Start: 03-26-2025 End: 03-26-2025 Refill Odilon Wells MD Work Phone: Cardiology Comment on above: Refill Request Start: 03-24-2025 End: 03-27-[address] Eh Huddleston MD Work Phone: [facility] Work Phone: Start: 03-24-2025 End: 03-27-[address] Eh Huddleston MD Work Phone: -Cardiac Rehab Work Phone: Start: 03-24-2025 End: 03-27-2025 Dr. Eh Huddleston MD Work Phone: -Cardiac Rehab Work Phone: Start: 03-11-2025 End: 03-11-2025 Telephone encounter Odilon Wells MD Work Phone: Cardiology Comment on above: Insurance Authorizat ion Start: 03-05-2025 End: 03-05-2025 Telephone encounter Lucy Mccall APRN.ADMINISTRATIVE TECH Work Phone: Cardiology Start: 03-04-2025 End: 03-04-2025 Telephone encounter Lucy Mccall APRN.ADMINISTRATIVE TECH Work Phone: Cardiology Start: 03-02-2025 End: 03-02-2025 Patient encounter procedure Lucy Mccall APRN.ADMINISTRATIVE TECH Work Phone: Cardiology Comment on above: Mixed hyperlipidemia (Primary Dx); S/P TAVR (transcatheter aortic valve replacement); Chronic diastolic congestive heart failure (HCC); 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; Essential (primary) hypertension; Acute deep vein thrombosis (DVT) of calf muscle vein of right lower extremity (HCC) Start: 03-02-2025 End: 03-02-2025 ambulatory EH HUDDLESTON Facility:[facility] Start: 03-02-2025 End: 03-02-2025 Subsequent hospital visit by physician Meeta Parmar (I-Stat) Work Phone: Radiology Comment on above: Mixed hyperlipidemia [E78.2] Start: 03-02-2025 ambulatory [place]ILON [place] Facility:[facility] Start: 03-02-2025 End: 03-02-2025 ambulatory ODILON [place] Facility:[facility] Start: 03-01-2025 End: 03-01-2025 Telephone encounter Odilon Wells MD Work Phone: Cardiology Start: 02-24-2025 End: 02-24-2025 ambulatory Danny Lim Facility:[facility] Start: 02-24-2025 End: 02-24-[address] Eh Huddleston MD Work Phone: -Cardiac Rehab Work Phone: Start: 02-24-2025 End: 02-24-2025 Dr. Eh Huddleston MD Work Phone: -Cardiac Rehab Work Phone: Start: 01-25-2025 End: 01-25-[address] Eh Huddleston MD Work Phone: [facility] Work Phone: Start: 01-25-2025 End: 01-25-[address] Eh Huddleston MD Work Phone: -Cardiac Rehab Work Phone: Start: 01-20-[address] Eh torres MD Work Phone: -Cardiac Rehab Work Phone: Start: 01-14-2025 End: 01-14-[address] Eh Huddleston MD Work Phone: [facility] Work Phone: Start: 01-14-2025 End: 01-14-[address] Eh Huddleston MD Work Phone: -Cardiac Rehab Work Phone: Start: 01-14-2025 End: 01-14-2025 ambulatory Danny [facility] Facility:[facility] Start: 01-08-2025 End: 01-08-2025 Telephone encounter Odilon Wells MD Work Phone: Cardiology Comment on above: notes and reports Start: 01-06-2025 End: 01-06-2025 ambulatory Jenelle Donohue RN [facility] Start: 01-06-2025 End: 01-06-2025 Patient encounter procedure Jenelle Donohue RN [facility] Start: 12-24-2024 End: 12-24-2024 Telephone encounter Odilon Wells MD Work Phone: Cardiology Start: 12-23-2024 End: 12-23-2024 Patient encounter procedure Deng Smith APRN.ADMINISTRATIVE TECH Work Phone: Cardiology Comment on above: S/P TAVR (transcathe ter aortic valve replacement) (Primary Dx); Severe aortic stenosis; Nonrheumatic aortic valve stenosis; 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); Mixed hyperlipidemia; Essential (primary) hypertension Start: 12-23-2024 End: 12-23-2024 ambulatory [facility] Facility:[facility] Start: 12-23-2024 End: 12-23-2024 ambulatory [facility] Facility:[facility] Start: 11-10-2024 End: 11-10-2024 Patient encounter procedure Deng Koenig APRN.ADMINISTRATIVE TECH Work Phone: Cardiology Comment on above: S/P TAVR (transcathe ter aortic valve replacement) (Primary Dx); Acute on chronic diastolic congestive heart failure (HCC); Nonrheumatic aortic valve stenosis; Mixed hyperlipidemia; Essential (primary) hypertension; 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) Start: 11-10-2024 End: 11-10-2024 ambulatory DENG ROUSSEAU Facility:[facility] Start: 10-30-2024 End: 10-30-2024 Orders Only Deng Koenig APRN.ADMINISTRATIVE TECH Work Phone: Cardiology Comment on above: PAD (peripheral richard ry disease) (HCC) (Primary Dx) Start: 10-30-2024 End: 10-30-2024 Evaluation and management of inpatient ODILON RUSSELL Facility:[facility] Start: 10-29-2024 End: 10-29-2024 Admission to same day surgery center Anesthesia Clearance Work Phone: [facility] Work Phone: Start: 10-29-2024 End: 10-29-2024 ambulatory EH HUDDLESTON Facility:[facility] Start: 10-29-2024 End: 10-29-2024 Patient encounter procedure Anesthesia Clearance Work Phone: Cardiothoracic Comment on above: Encounter for preope rative anesthesiology assessment for cardiac surgery (Primary Dx) Nonrheumatic aortic valve stenosis (Primary Dx); Aortic valve disorder Nonrheumatic aortic valve stenosis (Primary Dx); S/P TAVR (transcatheter aortic valve replacement) Start: 10-29-2024 End: 10-29-2024 ambulatory EH HUDDLESTON Facility:[facility] Start: 10-29-2024 End: 10-29-2024 Subsequent hospital visit by physician Xr Chest Main J1 Work Phone: Radiology Comment on above: Nonrheumatic aortic valve stenosis [I35.0] Start: 10-07-2024 End: 10-07-2024 ambulatory Luba Llanes APRN.ADMINISTRATIVE TECH Work Phone: Cardiology Comment on above: TAVR Schedule Start: 10-01-2024 End: 10-01-[address] Eh Huddleston MD -Laboratory, Phy Office 3rd Flr Start: 10-01-2024 End: 10-01-2024 ambulatory Eh Mike Flaquito Facility:[facility] Start: 09-16-2024 End: 09-16-2024 Telephone encounter Greg Maret TEST WORKER.ADMINISTRATIVE TECH Work Phone: Cardiology Comment on above: Dental form Start: 09-14-2024 End: 09-14-2024 ambulatory Kacy Jimenez TEST WORKER.SHOT BLAST 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 Work Phone: Cardiology Comment on above: TAVR team meeting Start: 09-09-2024 End: 09-09-2024 ambulatory KACY JIMENEZ Facility:[facility] Start: 09-09-2024 End: 09-09-2024 Patient encounter status Eh Huddleston Work Phone: [facility] Start: 09-09-2024 End: 09-09-2024 Subsequent hospital visit by physician Spectct4 Work Phone: Molecular Imaging Comment on above: Severe aortic stenos is by prior echocardiogram [I35.0] Start: 09-09-2024 End: 09-09-2024 Office outpatient new 30 minutes Genoveva Arteaga MD Work Phone: Cardiothoracic Comment on above: Nonrheumatic aortic valve stenosis (Primary Dx) Start: 09-09-2024 Encounter for preprocedural cardiovascular examination JAMES LINDO [facility] Start: 09-09-2024 End: 09-09-2024 Patient encounter procedure Pulm Fct Lab J-1 Pulmonary Medicine Comment on above: Nonrheumatic aortic valve stenosis (Primary Dx) Start: 09-09-2024 End: 09-09-2024 Patient encounter status Pulm J-1 [facility] Start: 09-09-2024 End: 09-09-2024 ambulatory GENOVEVA ARTEAGA Pulmonary Medicine Comment on above: Spirometry Start: 09-09-2024 End: 09-09-2024 ambulatory KACY JIMENEZ Facility:[facility] Start: 09-09-2024 End: 09-09-2024 Subsequent hospital visit by physician N[facility]inj [facility] Start: 09-03-2024 End: 09-03-2024 ambulatory ODILON WELLS Facility:[facility] Start: 09-02-2024 End: 09-02-2024 Telephone encounter Odilon Wells MD Work Phone: Cardiology Comment on above: Patient Education Start: 08-31-2024 End: 08-31-[address] (I-Stat) Work Phone: [facility] Start: 08-31-2024 End: 08-31-2024 Subsequent hospital visit [...] stenosis (Primary Dx); Coronary artery disease involving nikolai coronary artery of nikolai heart, unspecified whether angina present; Encounter to establish care; Pre-operative cardiovascular examination; Chronic diastolic congestive heart failure (HCC) Start: 08-31-2024 End: 08-31-2024 Patient encounter status Odilon Wells MD Work Phone: [facility] Start: 06-09-2024 ambulatory Kacy Jimenez APRN.SHOT BLAST 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 Work Phone: Cardiology Start: 06-09-2024 Patient encounter procedure Kacy Jimenez APRN.SHOT BLAST 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 Work Phone: Cardiology Comment on above: TAVR referral Start: 06-09-2024 Patient encounter status Kacy Jimenez APRN.SHOT BLAST 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 Work Phone: [facility] Start: 05-26-2024 End: 05-26-2024 ambulatory WALI TRIANA Facility:[facility] Start: 05-26-2024 End: 05-26-2024 Patient encounter procedure Wali Triana MD Work Phone: Ophthalmology Comment on above: PCO (posterior capsu lar opacification), left (Primary Dx); Pseudophakia; Primary open angle glaucoma (POAG) of left eye, severe stage Start: 05-22-2024 Telephone encounter James Duvall nd, MD Work Phone: Cardiology Start: 04-28-2024 End: 04-28-2024 ambulatory JAMESDerrell HOLCOMBMATHIEU Facility:[facility] Start: 04-28-2024 End: 04-28-2024 Patient encounter procedure James Lindo MD Work Phone: Cardiology Comment on above: Non-rheumatic aortic stenosis (Primary Dx); Coronary artery disease due to lipid rich plaque Start: 04-28-2024 End: 04-28-2024 ambulatory JAMES ZHANGMATHIEU Facility:[facility] Start: 04-27-2024 Orders Only James Millard Work Phone: Cardiology Start: 04-23-2024 Telephone encounter James Duvall nd, MD Work Phone: Cardiology Comment on above: Appointment Appointment (Cardiol ogist appt 04/28/2024 ) Start: 04-21-2024 Telephone encounter Azul kelly APRN.CNP Work Phone: Internal Medicine Comment on above: Appointment (Cardiol ogy scheduling to discuss TAVR ); TAVR Start: 04-21-2024 End: 04-21-2024 ambulatory WALI TRIANA Facility:[facility] Start: 04-21-2024 End: 04-21-2024 Patient encounter procedure Wali Triana MD Work Phone: Ophthalmology Comment on above: Pseudophakia (Primar y Dx); Pseudoexfoliation of lens capsule Start: 04-16-2024 Telephone encounter Berta prather PA-C Work Phone: Internal Medicine Comment on above: Com Writer - O ther Start: 04-15-2024 End: 04-15-2024 ambulatory THERESE RUELAS Facility:[facility] Start: 04-15-2024 Encounter for other preprocedural examination JAMES LINDO [facility] Start: 04-13-2024 Telephone encounter Berta prather PA-C Work Phone: Internal Medicine Comment on above: Com Writer - O ther Start: 04-06-2024 Telephone encounter Dorothy Han APRN.CNP Work Phone: Pre Anesthesia Comment on above: Request Outside [facility] Records Patient Question Start: 04-06-2024 End: 04-06-2024 [facility] Work Phone: Pre [facility] Start: 04-06-2024 End: 04-06-2024 Anesthesia consultation [place] [id number] Work Phone: Pre Anesthesia Comment on above: Pre-operative examin ation (Primary Dx); Severe aortic stenosis by prior echocardiogram; 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 Eh Huddleston Work Phone: [facility] Work Phone: Start: 09-30-2023 End: 09-30-[address] Eh Huddleston Work Phone: [facility]-Laboratory, Phy Office 3rd Flr Start: 09-10-2023 End: 09-10-[address] Eh Huddleston Work Phone: [facility] Work Phone: Start: 08-26-2023 Non-patient / Non-visit Dr. Collin Huddleston Work Phone: [facility] Start: 08-26-2023 End: 08-26-[address] [facility]udd[facility]eston [facility] Work Phone: Start: 08-05-2023 End: 08-05-[address] Eh Huddleston Work Phone: [facility] Work Phone: Start: 03-28-2023 End: 03-28-2023 ambulatory [facility] Work Phone: Start: 03-28-2023 End: 03-28-2023 [facility] Start: 09-25-2022 End: 09-25-[address] Eh Huddleston Work Phone: [facility] Work Phone: Start: 09-25-2022 End: 09-25-[address] Eh [facility]uddleston [facility] Start: 07-09-2022 Non-patient / Non-visit Dr. Collin Huddleston Work Phone: [facility] Start: 07-09-2022 End: 07-09-[address] Eh Huddleston Work Phone: [facility] Work Phone: Start: 07-09-2022 End: 07-09-[address] [facility]uddleston [facility] Start: 06-06-2022 End: 06-06-[address] Eh Huddleston Work Phone: [facility] Start: 03-14-2022 End: 03-14-2022 Patient encounter procedure [facility]-Laboratory, Phy Office 3rd Flr Start: 04-01-2018 Ambulatory DEVEN HUDDLESTON Facility:[facility] Start: 01-21-2018 Ambulatory Fritz Little Facility:[facility] Start: 01-20-2018 Ambulatory SERGIO CARABALLO Facility :[facility] Start: 12-30-2017 End: 12-30-2017 Ambulatory SERGIO Azam [facility] Start: 12-23-2017 End: 12-23-2017 Ambulatory SERGIO Azam [facility] Procedures Date Procedure Procedure Detail Performing Clinician Start: 06-17-2025 Blood count smear mc rscp w/mnl difrntl wbc count Dr. Eh Huddleston MD Work Phone: Start: 06-17-2025 Mean corpuscular hem oglobin concentration determination Dr. Eh Huddleston MD Work Phone: Start: 06-17-2025 Nucleated red blood cell count procedure Dr. Eh Huddleston MD Work Phone: Start: 06-17-2025 Platelet mean volume determination Dr. Eh Huddleston MD Work Phone: Start: 06-16-2025 [address] e detection [address]. Eh Huddleston MD Work Phone: Start: 06-10-2025 Mean corpuscular hem oglobin concentration determination Dr. Eh Huddleston MD Work Phone: Start: 06-10-2025 Platelet mean volume determination Dr. Eh Huddleston MD Work Phone: Start: 06-08-[address] Eh Huddleston MD Work Phone: Start: 06-08-2025 Mean corpuscular hem oglobin concentration determination Dr. Eh Huddleston MD Work Phone: Start: 06-08-2025 Platelet mean volume determination Dr. Eh Huddleston MD Work Phone: Start: 06-08-2025 Total cholesterol:HD L ratio measurement Dr. Eh Huddleston MD Work Phone: Start: 06-04-2025 [address] e detection Dr. Eh Huddleston MD Work Phone: Start: 06-04-[address] Eh Huddleston MD Work Phone: Start: 06-04-2025 Plain X-ray abdomen Dr. Eh Huddleston MD Work Phone: Start: 06-04-2025 Iadna-dna/rna gi pth gn multiplex probe tq 6-11 Dr. Eh Huddleston MD Work Phone: Start: 06-04-2025 Blood count smear mc rscp w/mnl difrntl wbc count Dr. Eh Huddleston MD Work Phone: Start: 06-04-[address] Eh Huddleston MD Work Phone: Start: 06-04-2025 Mean corpuscular hem oglobin concentration determination Dr. Eh Huddleston MD Work Phone: Start: 06-04-2025 Nucleated red blood cell count procedure Dr. Eh Huddleston MD Work Phone: Start: 06-04-2025 Platelet mean volume determination Dr. Eh Huddleston MD Work Phone: Start: 05-25-2025 Urine microscopy: red cells Dr. Eh Huddleston MD Work Phone: Start: [...] Dr. Eh Huddleston MD Work Phone: Start: 05-14-2025 Blood count smear mc rscp w/mnl difrntl wbc count Dr. Eh Huddleston MD Work Phone: Start: 05-14-2025 Mean corpuscular hem oglobin concentration determination Dr. Eh Huddleston MD Work Phone: Start: 05-14-2025 Nucleated red blood cell count procedure Dr. Eh Huddleston MD Work Phone: Start: 05-14-2025 Platelet mean volume determination Dr. Eh Huddleston MD Work Phone: Start: 05-13-[address] Eh Huddleston MD Work Phone: Start: 05-13-2025 Total cholesterol:HD L ratio measurement Dr. Eh Huddleston MD Work Phone: Start: 05-12-[address] Eh Huddleston MD Work Phone: Start: 05-11-2025 MRI of brain without contrast Dr. Eh Huddleston MD Work Phone: Start: 05-11-2025 Urine microscopy: red cells Dr. Eh Huddleston MD Work Phone: Start: [...] Dr Asher Huddleston MD Work Phone: Start: 05-08-2025 Calculation of inter national normalized ratio Dr. Eh Huddleston MD Work Phone: Start: 05-07-2025 Plain X-ray of femur Dr Asher Huddleston MD Work Phone: Start: 05-07-2025 Plain radiography of pelvis Dr. Eh Huddleston MD Work Phone: Start: 03-31-2025 Blood count smear mc rscp w/mnl difrntl wbc count Dr. Eh Huddleston MD Work Phone: Start: 03-31-2025 Mean corpuscular hem oglobin concentration determination Dr. Eh Huddleston MD Work Phone: Start: 03-31-2025 Nucleated red blood cell count procedure Dr. Eh Huddleston MD Work Phone: Start: 03-31-2025 Platelet mean volume determination Dr. Eh Huddleston MD Work Phone: Start: 03-31-2025 Total cholesterol:HD L ratio measurement Dr. Eh Huddleston MD Work Phone: Start: [...] [facility] Provider Start: 10-29-2024 Antibody screen JAMES MURDOCK Comment on above: Order Comment: Speci men Type: BLOOD SPECIMENOrdering Facility: [facility] Address: [address] [place] [address] Performed By: #### T [id number] ####CC MAIN BLOOD BANKCLIA [id number] [address] [place] Start: 10-29-2024 Radiologic exam ches t 2 views Luba Lalnes TEST WORKER.ADMINISTRATIVE TECH Work Phone: Start: 09-09-2024 Rp loclzj henry spect w/ct 1 area 1 day imaging Kacy Bañuelos Held TEST WORKER.SHOT BLAST 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 Work Phone: Start: 09-09-2024 Spmtry w/vc expirato ry pedro w/wo mxml vol vntj Kacy Bañuelos Held TEST WORKER.SHOT BLAST 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 Work Phone: Start: 08-31-2024 CTA CHEST/ABD/PEL (G ATED) W IVCON Kacy Bañuelos Held TEST WORKER.SHOT BLAST 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 Work Phone: Start: 08-31-2024 Creatinine [Mass/vol ume] in Serum or Plasma [facility] Provider Start: 08-31-2024 Radiologic exam ches t 2 views Kacy Jimenez TEST WORKER.SHOT BLAST 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 Work Phone: Start: 01-16-2024 Ophthalmic ultrasoun d dx b-scan w/wo a-scan Wali Triana MD Work Phone: Start: 01-16-2024 IOL BIOMETRY W/ IOL CALC OU (BOTH EYES) Wali Triana MD Work Phone: Start: 01-16-2024 Computerized corneal topography uni/bi Wali Triana MD Work Phone: Plan of Treatment Date Care Activity Detail Author Start: 05-23-2031 Urine microalbumin profile DTaP,Tdap,Td Vaccine (2 - Td or Tdap) [facility] Start: 12-23-2027 Diabetes Screening Diabetes Screening [facility] Start: 10-31-2027 Diabetes Screening Diabetes Screening [facility] Start: 10-29-2027 Diabetes Screening Diabetes Screening [facility] Start: 08-31-2027 Diabetes Screening Diabetes Screening [facility] Start: 03-04-2026 End: 06-03-2026 Basic metabolic 2000 panel - Serum or Plasma BASIC METABOLIC PANEL Lab Routine S/P TAVR (transcatheter aortic valve replacement) Severe aortic stenosis Expected: 03/04/2026, Expires: 06/03/2026 [facility] Comment on above: Expected: 03/04/2026, Expires: Start: 03-04-2026 End: 06-03-2026 Comprehensive metabolic 2000 panel - Serum or Plasma COMPREHENSIVE METABOLIC PANEL Lab Routine S/P TAVR (transcatheter aortic valve replacement) Severe aortic stenosis Expected: 03/04/2026, Expires: 06/03/2026 [facility] Comment on above: Expected: 03/04/2026, Expires: Start: 03-04-2026 End: 06-03-2026 Natriuretic peptide.B prohormone N-Terminal [Mass/volume] in Serum or Plasma NT PRO BNP Lab Routine S/P TAVR (transcatheter aortic valve replacement) Severe aortic stenosis Expected: 03/04/2026, Expires: 06/03/2026 [facility] Comment on above: Expected: 03/04/2026, Expires: Start: 08-31-2025 Hepatitis B surface antibody level LDL Cholesterol [facility] Start: 06-28-2025 Influenza vaccination [facility] Start: 06-14-2025 End: 06-14-2025 Patient encounter procedure Vascular Med icine Comment on above: S/P TAVR (transcatheter aortic valve rep lacement S/P TAVR (transcathe ter aortic valve replacement) Start: 06-07-2025 Patient discharge [facility] Start: 06-04-2025 Enteric precautions [facility] Start: 06-02-2025 Consultation [facility] Start: 06-01-2025 [facility] Start: 05-26-2025 Wound care [facility] Start: 05-25-2025 [facility] Start: 05-25-2025 Urine culture Urine Culture [facility] Start: 05-18-2025 Removal of urinary catheter [facility] Start: 05-17-2025 Speech therapy management [facility] Start: 05-17-2025 Speech therapy assessment [facility] Start: 05-16-2025 Contact precautions [facility] Start: 05-15-2025 Development of care plan [facility] Start: 05-15-2025 Developing a treatment plan [facility] Start: 05-14-2025 Following clinical pathway protocol [facility] Start: 05-14-2025 Verification routine [facility] Start: 05-14-2025 Wound care [facility] Start: 05-14-2025 Admission procedure [facility] Start: 05-14-2025 Introduction of urinary catheter [facility] Start: 05-14-2025 Measuring intake and output [facility] Start: 05-14-2025 Patient referral to dietitian [facility] Start: 05-14-2025 Referral to occupational therapist [facility] Start: 05-14-2025 Referral to service [facility] Start: 05-14-2025 Vital signs measurements [facility] Start: 05-14-2025 [facility] Start: 05-14-2025 Patient discharge [facility] Start: 05-14-2025 Patient referral to [facility] Start: 05-13-2025 Vital signs measurements [facility] Start: 05-13-2025 [facility] Start: 05-12-2025 Aspiration precautions [facility] Start: 05-12-2025 Cardiac monitoring [facility] Start: 05-12-2025 Catheterization of vein [facility] Start: 05-12-2025 Consultation [facility] Start: 05-12-2025 Elevation of head of bed [facility] Start: 05-12-2025 Exercises [facility] Start: 05-12-2025 Notification of physician [facility] Start: 05-12-2025 Patient referral to dietitian [facility] Start: 05-12-2025 Referral to occupational therapist [facility] Start: 05-12-2025 Referral to service [facility] Start: 05-12-2025 Speech therapy assessment [facility] Start: 05-12-2025 Tobacco use cessation education [facility] Start: 05-12-2025 End: 05-12-2025 [facility] Start: 05-12-2025 Vital signs measurements [facility] Start: 05-11-2025 Telemedicine consultation with patient [facility] Start: 05-11-2025 End: 05-11-2025 Administration of blood product [facility] Start: 05-10-2025 [facility] Start: 05-10-2025 [facility] Start: 05-10-2025 Blood culture Blood Culture [facility] Start: 05-09-2025 Following clinical pathway protocol [facility] Start: 05-09-2025 Ambulation therapy management [facility] Start: 05-09-2025 Application of device [facility] Start: 05-09-2025 Exercises [facility] Start: 05-09-2025 Following clinical pathway protocol [facility] Start: 05-09-2025 Introduction of urinary catheter [facility] Start: 05-09-2025 Neurovascular assessment [facility] Start: 05-09-2025 Patient education [facility] Start: 05-09-2025 Provision of activity privileges [facility] Start: 05-09-2025 Referral to occupational therapist [facility] Start: 05-09-2025 Referral to service [facility] Start: 05-09-2025 Vital signs measurements [facility] Start: 05-09-2025 Wound care [facility] Start: 05-09-2025 [facility] Start: 05-08-2025 Following clinical pathway protocol [facility] Start: 05-08-2025 Measuring intake and output [facility] Start: 05-08-2025 Measuring intake and output [facility] Start: 05-07-2025 Measuring intake and output [facility] Start: 05-07-2025 Measuring intake and output [facility] Start: 05-07-2025 Application of ice collar, cap or bag [facility] Start: 05-07-2025 Bedrest [facility] Start: 05-07-2025 Following clinical pathway protocol [facility] Start: 05-07-2025 Assessment of risk of venous thromboembolism [facility] Start: 05-07-2025 Bedrest [facility] Start: 05-07-2025 Catheterization of vein [facility] Start: 05-07-2025 Consultation [facility] Start: 07-11-2025 Insertion of catheter into peripheral vein [facility] Start: 05-07-2025 Providing care according to standard [facility] Start: 05-07-2025 Referral to occupational therapist [facility] Start: 05-07-2025 Referral to service [facility] Start: 05-07-2025 [facility] Start: 05-07-2025 Hospital admission, emergency, from emergency room, medical nature [facility] Start: 05-07-2025 Verification routine [facility] Start: 05-07-2025 Admission procedure [facility] Start: 03-23-2025 End: 03-23-2025 Patient encounter procedure Vascular Med icine Comment on above: DX: CAD; HTN; HLD Start: 03-22-2025 End: 12-23-2025 US Lower extremity artery US LEG ARTERIAL PERIPH UNL [facility]AS LAB Vascular Lab Routine Mixed hyperlipidemia Essential (primary) hypertension 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) Severe aortic stenosis Expected: 03/22/2025, Expires: 12/23/2025 [facility] Comment on above: Expected: 03/22/2025, Expires: Start: 03-22-2025 End: 12-23-2025 US Lower extremity artery - bilateral PVR ANK/CEE/TOE LARRY [facility] Vascular Lab Routine Mixed hyperlipidemia Essential (primary) hypertension 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) Severe aortic stenosis Expected: 03/22/2025, Expires: 12/23/2025 [facility] Comment on above: Expected: 03/22/2025, Expires: Start: 03-22-2025 End: 12-23-2025 US.doppler Extremity arteries - bilateral for physiologic artery study PVR ANK PRESS LARRY [facility] Vascular Lab Routine Mixed hyperlipidemia Essential (primary) hypertension 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) Severe aortic stenosis Expected: 03/22/2025, Expires: 12/23/2025 [facility] Comment on above: Expected: 03/22/2025, Expires: Start: [...] disease) S/P TAVR Start: 12-23-2024 End: 12-23-2024 ambulatory [facility] J1-4 Dra nathen Hendricks Comment on above: LAB S/P TAVR Start: 11-30-2024 End: 10-30-2025 US Lower extremity artery US LEG ARTERIAL PERIPH UNL [facility]AS LAB Vascular Lab Routine PAD (peripheral artery disease) (HCC) Expected: 11/30/2024, Expires: 10/30/2025 [facility] Work Phone: Comment on above: Expected: 11/30/2024, Expires: Start: 11-10-2024 End: 11-10-2024 Patient encounter procedure 11/10/2024 9:45 AM EST Office Visit Cardiology [address] [id number] Deng Koenig APRN.ADMINISTRATIVE TECH [address] [facility] [address] [id number] [phone] (Work) S/P TAVR Cardiology Comment on above: S/P TAVR Start: 11-10-2024 End: 11-10-2024 ambulatory 11/10/2024 9:15 AM EST Results Only Cardiology [address] [place] [address] S/P TAVR Cardiology Comment on above: S/P TAVR Start: 10-30-2024 End: 10-30-2024 Anesthesia consultation 10/30/2024 6:30 AM EST Anesthesia Event Admitting [address] [place] [address] Domenic Presley DO [address] [place] [address] Admitting Start: 10-30-2024 End: 10-30-2024 Patient encounter procedure 10/30/2024 5:45 AM EST Office Visit Cardiology [address] [id number] COMMERCIAL TF- TAVR S3 vs ROMEL Cardiology Comment on above: COMMERCIAL TF- TAVR S3 vs ROMEL Start: 10-30-2024 End: 10-30-2024 Admission to same day surgery center Admitting Comment on above: TRANSCATHETER AORTIC VALVE REPLACEMENT ( TAVR/ESAU) W/ PROSTHETIC VALVE PERCUTANEOUS FEMORAL ARTERY APPROACH Start: 10-30-2024 End: 10-30-2024 ambulatory 10/30/2024 5:30 AM EST Procedure Cardiology [address] [place] [address] COMMERCIAL TF- TAVR S3 vs ROMEL Cardiology Comment on above: COMMERCIAL TF- TAVR S3 vs ROMEL Start: 10-30-2024 End: 10-30-2024 Replace aortic valve perq femoral artry approach LORNA CT & VAS Start: 10-30-2024 Subsequent hospital visit by physician Admitting Comment on above: COMMERCIAL TF- TAVR S3 vs ROMEL, Procedur e on: 10/30/2024 at 5:30 am Start: 10-29-2024 End: 01-28-2025 CBC panel - Blood by Automated count COMPLETE BLOOD COUNT Lab Routine Nonrheumatic aortic valve 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) Expected: 10/29/2024, Expires: 01/28/2025 [facility] Comment on above: Expected: 10/29/2024, Expires: Start: 10-29-2024 End: 01-28-2025 CBC W Auto Differential panel - Blood COMPLETE BLOOD COUNT AND DIFFERENTIAL Lab STAT Nonrheumatic aortic valve stenosis Aortic valve disorder Expected: 10/29/2024 (Approximate), Expires: 01/28/2025 [facility] Comment on above: Expected: 10/29/2024 (Approximate), Expi res: 01/28/2025 Start: 10-29-2024 End: 01-28-2025 Comprehensive metabolic 2000 panel - Serum or Plasma [facility] Comment on above: Expected: 10/29/2024 (Approximate), Expi res: 01/28/2025 Expected: 10/29/2024 , Expires: 01/28/2025 Start: 10-29-2024 End: 01-28-2025 CONFIRM BLOOD TYPE CONFIRM BLOOD TYPE Blood Bank STAT Nonrheumatic aortic valve stenosis Aortic valve disorder Expected: 10/29/2024 (Approximate), Expires: 01/28/2025 [facility] Comment on above: Expected: 10/29/2024 (Approximate), Expi res: 01/28/2025 Start: 10-29-2024 End: 01-28-2025 HIGH SENSITIVITY TROPONIN T HIGH SENSITIVITY TROPONIN T Lab STAT Nonrheumatic aortic valve stenosis Aortic valve disorder Expected: 10/29/2024 (Approximate), Expires: 01/28/2025 [facility] Comment on above: Expected: 10/29/2024 (Approximate), Expi res: 01/28/2025 Start: 10-29-2024 End: 01-28-2025 Lipoprotein a [Mass/volume] in Serum or Plasma LIPOPROTEIN (A) Lab STAT Nonrheumatic aortic valve stenosis Aortic valve disorder Expected: 10/29/2024 (Approximate), Expires: 01/28/2025 [facility] Comment on above: Expected: 10/29/2024 (Approximate), Expi res: 01/28/2025 Start: 10-29-2024 End: 01-28-2025 Natriuretic peptide.B prohormone N-Terminal [Mass/volume] in Serum or Plasma [facility] Comment on above: Expected: 10/29/2024 (Approximate), Expi res: 01/28/2025 Expected: 10/29/2024 , Expires: 01/28/2025 Start: 10-29-2024 End: 01-28-2025 PT panel - Platelet poor plasma by Coagulation assay PROTHROMBIN TIME Lab STAT Nonrheumatic aortic valve stenosis Aortic valve disorder Expected: 10/29/2024 (Approximate), Expires: 01/28/2025 [facility] Work Phone: Comment on above: Expected: 10/29/2024 (Approximate), Expi res: 01/28/2025 Start: 10-29-2024 End: 01-28-2025 TYPE AND SCREEN,30 DAY TYPE AND SCREEN,30 DAY Blood Bank STAT Nonrheumatic aortic valve stenosis Aortic valve disorder Expected: 10/29/2024 (Approximate), Expires: 01/28/2025 [facility] Comment on above: Expected: 10/29/2024 (Approximate), Expi res: 01/28/2025 Start: 10-29-2024 End: 10-29-2024 Patient encounter procedure Radiology Comment on above: COMMERCIAL TF- TAVR S3 vs ROMEL Start: 10-29-2024 End: 10-29-2024 ambulatory [facility] J1-4 Dra nathen Hendricks Comment on above: COMMERCIAL TF- TAVR S3 vs ROMEL Start: 10-28-2024 Advance Directive Discussion Advance Directive Discussion [facility] Start: 10-28-2024 Medicare Advantage Annual Wellness Visit Medicare Advantage Annual Wellness Visit [facility] Start: 09-09-2024 End: 09-09-2024 ambulatory Pulmonary Medicine Comment on above: New TAVR Workup Start: 09-09-2024 End: 09-09-2024 Patient encounter procedure Cardiothorac ic Comment on above: New TAVR Workup NM SPECT/CT CARDIAC AMYLOID Start: 09-03-2024 End: 09-03-2024 Admission to same day surgery center 09/03/2024 4:45 PM EST - 09/03/2024 5:42 PM EST Surgery HOSP Senior Marketing Manager [address] [place] [address] [place] [address] [place] [address]ON[address] W IMAGE INJECT & INTERP W LT HEART CATH W INJECT LT VENTRGRAPHY HOSP Senior Marketing Manager Comment on above: CORONARY ANGIO W CATH PLACE W IMAGE INJE CT & INTERP W LT HEART CATH W INJECT LT VENTRGRAPHY Start: 09-03-2024 End: 09-03-2024 Cath plmt l hrt & arts w/njx & angio img s&i CORONARY ANGIO W CATH PLACE W IMAGE INJECT & INTERP W LT HEART CATH W INJECT LT VENTRGRAPHY Nonrheumatic aortic valve stenosis 09/03/2024 4:45 PM EST [employer]IP [employer]ER Start: 09-03-2024 Subsequent hospital visit by physician 09/03/2024 4:45 PM EST Hospital Encounter HOSP Senior Marketing Manager [address] [place] [address] [place] [address] [place] [address] Nonrheumatic aortic valve stenosis [I35.0] HOSP Senior Marketing Manager Comment on above: Nonrheumatic aortic valve stenosis [I35. 0] Start: 09-03-2024 End: 09-03-2024 Patient encounter procedure 09/03/2024 1:00 PM EST Office Visit Admitting [address] [place] [address] ADMIT Admitting Comment on above: ADMIT Start: 09-03-2024 End: 09-03-2024 ambulatory Cardiology Comment on above: New TAVR Workup Start: 07-28-2024 End: 07-28-2024 Patient encounter procedure 07/28/2024 1:15 PM EDT Office Visit OPHT Ophthalmology [address] [address] Wali Triana MD [address] [place] [address] Follow up per patient Ophthalmology Comment on above: Follow up per patient Start: 06-28-2024 Covid-19 Vaccine ( season) Covid-19 Vaccine () [facility] Start: 06-28-2024 Influenza vaccination [facility] Start: 06-22-2024 End: 09-21-2024 CBC W Auto Differential panel - Blood COMPLETE BLOOD COUNT AND DIFFERENTIAL Lab Routine Severe aortic stenosis by prior echocardiogram Encounter for preprocedural cardiovascular examination Aortic valve disorder Expected: 06/22/2024 (Approximate), Expires: 09/21/2024 [facility] Comment on above: Expected: 06/22/2024 (Approximate), Expi res: 09/21/2024 Start: 06-22-2024 End: 09-21-2024 Comprehensive metabolic 2000 panel - Serum or Plasma COMPREHENSIVE METABOLIC PANEL Lab Routine Severe aortic stenosis by prior echocardiogram Encounter for preprocedural cardiovascular examination Aortic valve disorder Expected: 06/22/2024 (Approximate), Expires: 09/21/2024 [facility] Comment on above: Expected: 06/22/2024 (Approximate), Expi res: 09/21/2024 Start: 06-22-2024 End: 09-21-2024 HIGH SENSITIVITY TROPONIN T HIGH SENSITIVITY TROPONIN T Lab Routine Severe aortic stenosis by prior echocardiogram Encounter for preprocedural cardiovascular examination Aortic valve disorder Expected: 06/22/2024 (Approximate), Expires: 09/21/2024 [facility] Comment on above: Expected: 06/22/2024 (Approximate), Expi res: 09/21/2024 Start: 06-22-2024 End: 09-21-2024 Lipoprotein a [Mass/volume] in Serum or Plasma LIPOPROTEIN (A) Lab Routine Severe aortic stenosis by prior echocardiogram Encounter for preprocedural cardiovascular examination Aortic valve disorder Expected: 06/22/2024 (Approximate), Expires: 09/21/2024 [facility] Comment on above: Expected: 06/22/2024 (Approximate), Expi res: 09/21/2024 Start: 06-22-2024 End: 09-21-2024 Natriuretic peptide.B prohormone N-Terminal [Mass/volume] in Serum or Plasma NT PRO BNP Lab Routine Severe aortic stenosis by prior echocardiogram Encounter for preprocedural cardiovascular examination Aortic valve disorder Expected: 06/22/2024 (Approximate), Expires: 09/21/2024 [facility] Comment on above: Expected: 06/22/2024 (Approximate), Expi res: 09/21/2024 Start: 06-09-2024 End: 09-08-2024 CREATININE BLD CREATININE BLD Lab Routine Severe aortic stenosis by prior echocardiogram Encounter for preprocedural cardiovascular examination Aortic valve disorder Expected: 06/09/2024, Expires: 09/08/2024 [facility] Comment on above: Expected: 06/09/2024, Expires: Start: 05-26-2024 End: 05-26-2024 Patient encounter procedure Ophthalmolog y Comment on above: 1 MONTH 1 MONTH va iop mrx o u dfe operative eye Start: 04-28-2024 End: 04-28-2024 Patient encounter procedure 04/28/2024 3:30 PM EDT Office Visit Cardiology [address] [place] [address] Aortic valve stenosis, etiology of cardiac valve disease unspecified [I35.0] Cardiology Comment on above: Aortic valve stenosis, etiology of cardi ac valve disease unspecified [I35.0] Start: 04-28-2024 End: 07-28-2024 Natriuretic peptide.B prohormone N-Terminal [Mass/volume] in Serum or Plasma [facility] Work Phone: Comment on above: Expected: 04/28/2024, Expires: Start: 04-28-2024 End: 04-28-2024 Patient encounter procedure 04/28/2024 1:45 PM EDT Office Visit Cardiology [address] [place] [address] aJmes Lindo MD [address] [facility] [place] [address] Aortic valve stenosis, etiology of cardiac valve disease unspecified [I35.0] Cardiology Comment on above: Aortic valve stenosis, etiology of cardi ac valve disease unspecified [I35.0] Start: 04-28-2024 End: 04-28-2024 ambulatory 04/28/2024 1:00 PM EDT Results Only Cardiology [address] [place] [address] Aortic valve stenosis, etiology of cardiac valve disease unspecified [I35.0] Cardiology Comment on above: Aortic valve stenosis, etiology of cardi ac valve disease unspecified [I35.0] Start: 04-21-2024 End: 04-21-2024 Patient encounter procedure 04/21/2024 1:15 PM EDT Office Visit [facility] Ophthalmology [address] [address] Wali Triana MD [address] [place], [place] [id number] POD1 Ophthalmology Comment on above: POD1 Start: 04-20-2024 End: 04-20-2024 Admission to same day surgery center Ophthalmology Comment on above: PHACOEMULSIFICATION CATARACT IMPLANT INT RAOCULAR LENS W/O ENDOSCOPIC CYCLOPHOTOCOAGULATION Start: 06-24-2024 Subsequent hospital visit by physician Ophthalmology Comment on above: Total, mature senile cataract [H25.89] Start: 04-20-2024 End: 04-20-2024 Xcapsl ctrc rmvl insj io lens prosth w/o ecp [facility] Start: 04-15-2024 End: 04-15-2024 Patient encounter procedure 04/15/2024 11:20 AM EDT Office Visit Cardiology [address] [place] [address] Aortic valve stenosis, etiology of cardiac valve disease unspecified [I35.0] Cardiology Comment on above: Aortic valve stenosis, etiology of cardi ac valve disease unspecified [I35.0] Start: 04-10-2024 End: 04-10-2024 Patient encounter procedure 04/10/2024 2:30 PM EDT Office Visit Vascular Medicine [address] [place] [address] Aortic valve stenosis, etiology of cardiac valve disease unspecified [I35.0] Vascular Medicine Comment on above: Aortic valve stenosis, etiology of cardi ac valve disease unspecified [I35.0] Start: 10-28-2023 Advance Directive Discussion Advance Directive Discussion [facility] Start: 10-28-2023 Behavioral Health Screening Behavioral Health Screening [facility] Start: 10-28-2023 Depression Assessment Depression Assessment [facility] Start: 06-28-2023 Covid-19 Vaccine ( season) Covid-19 Vaccine ( season) [facility] Start: 06-28-2023 Influenza vaccination Influenza Vaccine (#1) [facility] Start: 03-24-2022 Diabetes Screening Diabetes Screening [facility] Start: 07-14-2019 Hepatitis B surface antibody level LDL Cholesterol [facility] Start: 10-30-2014 Urine microalbumin profile DTaP,Tdap,Td Vaccine (1 - Tdap) [facility] Start: 2014 RSV Vaccine (1 - 1-dose 75+ series) RSV Vaccine (1 - 1-dose 75+ series) [facility] Start: 2004 Pneumococcal Vaccine: 65+ (1 of 1 - PCV) Pneumococcal Vaccine: 65+ (1 of 1 - PCV) [facility] Start: 2004 Screening for osteoporosis Bone Density Screening [facility] Start: 1999 RSV Vaccine (1 - 1-dose 60+ series) RSV Vaccine (1 - 1-dose 60+ series) [facility] Start: 1989 Shingrix Vaccine (1 of 2) Shingrix Vaccine (1 of 2) [facility] Start: 1959 Pneumococcal Vaccine: 50+ (1 of 2 - PCV) Pneumococcal Vaccine: 50+ (1 of 2 - PCV) [facility] Start: 1958 Anxiety Screening Anxiety Screening [facility] Start: 1958 Depression Screening Depression Screening [facility] Anion gap in Serum or Plasma [facility] Anion gap in Serum or Plasma [facility] Anion gap in Serum or Plasma [facility] BUN/Creatinine ratio [facility] BUN/Creatinine ratio [facility] BUN/Creatinine ratio [facility] Calcium [Mass/volume ] in Serum or Plasma [facility] Calcium [Mass/volume ] in Serum or Plasma [facility] Calcium [Mass/volume ] in Serum or Plasma [facility] Carbon dioxide, tota l [Moles/volume] in Central venous blood [facility] Carbon dioxide, tota l [Moles/volume] in Central venous blood [facility] Carbon dioxide, tota l [Moles/volume] in Central venous blood [facility] Cardiac event recording [facility] CARDIAC REHAB II OUT PT ([place], [place]) CARDIAC REHAB II [place] BIC Routine S/P TAVR (transcatheter aortic valve replacement) Ordered: 11/10/2024 [facility] Work Phone: Comment on above: Ordered: 11/10/2024 CARDIAC REHAB II OUT PT ([place] CARDIAC REHAB [place] BIC Routine Mixed hyperlipidemia Essential (primary) hypertension 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) Severe aortic stenosis Ordered: 12/23/2024 [facility] Work Phone: Comment on above: Ordered: 12/23/2024 Creatinine [Mass/vol ume] in Serum or Plasma [facility] Creatinine [Mass/vol ume] in Serum or Plasma [facility] Creatinine [Mass/vol ume] in Serum or Plasma [facility] End: 01-22-2026 CT Heart W contrast IV CT CARDIAC W IVCON Radiology Routine Mixed hyperlipidemia Essential (primary) hypertension 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) Severe aortic stenosis 1 Occurrences starting 12/23/2024 until 01/22/2026 [facility] Comment on above: 1 Occurrences starting 12/23/2024 until 01/22/2026 End: 07-09-2025 CTA Chest vessels and Abdominal vessels and Pelvis vessels W contrast IV CTA CHEST/ABD/PEL (GATED) W IVCON Radiology Routine Severe aortic stenosis by prior echocardiogram Encounter for preprocedural cardiovascular examination Aortic valve disorder 1 Occurrences starting 06/09/2024 until 07/09/2025 [facility] Comment on above: 1 Occurrences starting 06/09/2024 until 07/09/2025 End: 04-28-2025 ECG COMPLETE ECG COMPLETE ECG Routine Non-rheumatic aortic stenosis 1 Occurrences starting 04/28/2024 until 04/28/2025 [facility] Comment on above: 1 Occurrences starting 04/28/2024 until 04/28/2025 End: 06-09-2025 ECG COMPLETE ECG COMPLETE ECG Routine Severe aortic stenosis by prior echocardiogram Encounter for preprocedural cardiovascular examination Aortic valve disorder 1 Occurrences starting 06/09/2024 until 06/09/2025 [facility] Comment on above: 1 Occurrences starting 06/09/2024 until 06/09/2025 End: 10-07-2025 ECG COMPLETE ECG COMPLETE ECG Routine Nonrheumatic aortic valve stenosis Aortic valve disorder 1 Occurrences starting 10/07/2024 until 10/07/2025 [facility] Comment on above: 1 Occurrences starting 10/07/2024 until 10/07/2025 End: 10-29-2025 ECG COMPLETE ECG COMPLETE ECG Routine Nonrheumatic aortic valve 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) 1 Occurrences starting 10/29/2024 until 10/29/2025 [facility] Comment on above: 1 Occurrences starting 10/29/2024 until 10/29/2025 End: 03-04-2026 ECG COMPLETE ECG COMPLETE ECG Routine S/P TAVR (transcatheter aortic valve replacement) Severe aortic stenosis 1 Occurrences starting 03/04/2025 until 03/04/2026 [facility] Comment on above: 1 Occurrences starting 03/04/2025 until 03/04/2026 End: 04-08-2025 Echocardiography ECHO Cardiology Routine Aortic valve stenosis, etiology of cardiac valve disease unspecified Preop examination 1 Occurrences starting 04/08/2024 until 04/08/2025 [facility] Work Phone: Comment on above: 1 Occurrences starting 04/08/2024 until 04/08/2025 End: 04-28-2025 Echocardiography ECHO Cardiology Routine Non-rheumatic aortic stenosis 1 Occurrences starting 04/28/2024 until 04/28/2025 [facility] Comment on above: 1 Occurrences starting 04/28/2024 until 04/28/2025 End: 10-29-2025 Echocardiography ECHO Cardiology Routine Nonrheumatic aortic valve 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) 1 Occurrences starting 10/29/2024 until 10/29/2025 [facility] Work Phone: Comment on above: 1 Occurrences starting 10/29/2024 until 10/29/2025 End: 03-04-2026 Echocardiography ECHO Cardiology Routine S/P TAVR (transcatheter aortic valve replacement) Severe aortic stenosis 1 Occurrences starting 03/04/2025 until 03/04/2026 [facility] Work Phone: Comment on above: 1 Occurrences starting 03/04/2025 until 03/04/2026 Erythrocyte mean cor puscular volume determination [facility] Erythrocyte mean cor puscular volume determination [facility] Erythrocyte mean cor puscular volume determination [facility] Erythrocyte mean cor puscular volume determination [facility] Glucose [Mass/volume ] in Serum or Plasma [facility] Glucose [Mass/volume ] in Serum or Plasma [facility] Glucose [Mass/volume ] in Serum or Plasma [facility] Hematocrit [Volume F raction] of Blood [facility] Hematocrit [Volume F raction] of Blood [facility] Hematocrit [Volume F raction] of Blood [facility] Hematocrit [Volume F raction] of Blood [facility] Hemoglobin [Mass/vol ume] in Blood [facility] Hemoglobin [Mass/vol ume] in Blood [facility] Hemoglobin [Mass/vol ume] in Blood [facility] Hemoglobin [Mass/vol ume] in Blood [facility] Leukocytes [#/volume ] in Blood [facility] Leukocytes [#/volume ] in Blood [facility] Leukocytes [#/volume ] in Blood [facility] Leukocytes [#/volume ] in Blood [facility] End: 07-09-2025 LUNG DIFFUSION CAPACITY (DLCO) LUNG DIFFUSION CAPACITY (DLCO) PFT Routine Severe aortic stenosis by prior echocardiogram Encounter for preprocedural cardiovascular examination Aortic valve disorder 1 Occurrences starting 06/09/2024 until 07/09/2025 [facility] Comment on above: 1 Occurrences starting 06/09/2024 until 07/09/2025 LUNG DIFFUSION CAPAC ITY (DLCO) LUNG DIFFUSION CAPACITY (DLCO) PFT Routine Severe aortic stenosis by prior echocardiogram Encounter for preprocedural cardiovascular examination Aortic valve disorder 09/09/2024 12:10 PM EST [facility] Work Phone: Mean corpuscular hem oglobin concentration determination [facility] Mean corpuscular hem oglobin concentration determination [facility] Mean corpuscular hem oglobin concentration determination [facility] Mean corpuscular hem oglobin concentration determination [facility] Mean corpuscular hem oglobin determination [facility] Mean corpuscular hem oglobin determination [facility] Mean corpuscular hem oglobin determination [facility] Mean corpuscular hem oglobin determination [facility] Measurement of renal function [facility] Measurement of renal function [facility] Measurement of renal function [facility] Neutrophil count [facility] Neutrophil count [facility] Neutrophil count [facility] Neutrophil count [facility] Neutrophil percent differential count [facility] Neutrophil percent differential count [facility] Neutrophil percent differential count [facility] Neutrophil percent differential count [facility] Platelets [#/volume] in Blood [facility] Platelets [#/volume] in Blood [facility] Platelets [#/volume] in Blood [facility] Platelets [#/volume] in Blood [facility] Potassium measurement [facility] Potassium measurement [facility] Potassium measurement [facility] Red blood cell count [facility] Red blood cell count [facility] Red blood cell count [facility] Red blood cell count [facility] RED BLOOD CELLS, ADULT RED BLOOD CELLS, ADULT Blood Bank Routine Nonrheumatic aortic valve stenosis Ordered: 10/29/2024 [facility] Work Phone: Comment on above: Ordered: 10/29/2024 Red cell distributio n width determination [facility] Red cell distributio n width determination [facility] Red cell distributio n width determination [facility] Red cell distributio n width determination [facility] Serum chloride measurement [facility] Serum chloride measurement [facility] Serum chloride measurement [facility] Sodium measurement [facility] Sodium measurement [facility] Sodium measurement [facility] End: 07-09-2025 SPECT Heart for infarct W Tc-99m PYP IV NM SPECT/CT CARDIAC AMYLOID Radiology Routine Severe aortic stenosis by prior echocardiogram Encounter for preprocedural cardiovascular examination Aortic valve disorder 1 Occurrences starting 06/09/2024 until 07/09/2025 [facility] Comment on above: 1 Occurrences starting 06/09/2024 until 07/09/2025 End: 07-09-2025 SPIROMETRY BASELINE ONLY SPIROMETRY BASELINE ONLY PFT Routine Severe aortic stenosis by prior echocardiogram Encounter for preprocedural cardiovascular examination Aortic valve disorder 1 Occurrences starting 06/09/2024 until 07/09/2025 [facility] Work Phone: Comment on above: 1 Occurrences starting 06/09/2024 until 07/09/2025 SPIROMETRY BASELINE ONLY SPIROME TRY BASELINE ONLY PFT Routine Severe aortic stenosis by prior echocardiogram Encounter for preprocedural cardiovascular examination Aortic valve disorder 09/09/2024 12:10 PM EST [facility] Work Phone: Urea nitrogen [Mass/ volume] in Serum or Plasma [facility] Urea nitrogen [Mass/ volume] in Serum or Plasma [facility] Urea nitrogen [Mass/ volume] in Serum or Plasma [facility] US Carotid arteries - bilateral US CAROTID ARTERIES [facility] Vascular Lab Routine Severe aortic stenosis by prior echocardiogram Encounter for preprocedural cardiovascular examination Aortic valve disorder Ordered: 06/09/2024 [facility] Comment on above: Ordered: 06/09/2024 End: 03-02-2026 US Lower extremity artery - bilateral [facility] Work Phone: Comment on above: 1 Occurrences starting 03/02/2025 until 03/02/2026 End: 10-30-2025 US.doppler Extremity arteries - bilateral for physiologic artery study PVR ANK PRESS [facility] Vascular Lab Routine PAD (peripheral artery disease) (HCC) 1 Occurrences starting 10/30/2024 until 10/30/2025 [facility] Comment on above: 1 Occurrences starting 10/30/2024 until 10/30/2025 End: 03-02-2026 US.doppler Extremity arteries - bilateral for physiologic artery study PVR ANK PRESS [facility] Vascular Lab Routine S/P TAVR (transcatheter aortic valve replacement) Chronic diastolic congestive heart failure (HCC) 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 Mixed hyperlipidemia Essential (primary) hypertension 1 Occurrences starting 03/02/2025 until 03/02/2026 [facility] Comment on above: 1 Occurrences starting 03/02/2025 until 03/02/2026 End: 07-09-2025 XR Chest PA and Lateral XR CHEST 2V FRONTAL/LAT Radiology Routine Severe aortic stenosis by prior echocardiogram Encounter for preprocedural cardiovascular examination Aortic valve disorder 1 Occurrences starting 06/09/2024 until 07/09/2025 [facility] Comment on above: 1 Occurrences starting 06/09/2024 until 07/09/2025 End: 11-06-2025 XR Chest PA and Lateral XR CHEST 2V FRONTAL/LAT Radiology Routine Nonrheumatic aortic valve stenosis Aortic valve disorder 1 Occurrences starting 10/07/2024 until 11/06/2025 [facility] Comment on above: 1 Occurrences starting 10/07/2024 until 11/06/2025 [facility] EYE INS TITUTE Immunizations Immunization Date Immunization Notes Care Provider Fa [facility] 05-23-2021 tetanus toxoid, redu doug diphtheria toxoid, and acellular pertussis vaccine, adsorbed [facility] 09-08-2020 influenza, injectabl e, quadrivalent, preservative free Dr. Eh Huddleston MD Work Phone: [facility] 07-10-2019 hepatitis A vaccine, adult dosage Dr. Eh Huddleston MD Work Phone: [facility] 07-10-[address] Eh Huddleston MD Work Phone: [facility] 12-03-2017 influenza, injectabl e, quadrivalent, preservative free Dr. Eh Huddleston MD Work Phone: [facility] 10-29-2014 tetanus and diphther ia toxoids, adsorbed, preservative free, for adult use (2 Lf of tetanus toxoid and 2 Lf of diphtheria toxoid) Dr. Eh Huddleston MD Work Phone: [facility] 10-29-2014 tetanus and diphther ia toxoids, adsorbed, preservative free, for adult use (5 Lf of tetanus toxoid and 2 Lf of diphtheria toxoid) Ultrasound Main Work Phone: [facility] Payers Date Payer Category Payer Self-pay [id number] 2013 Medicare HU[employer]NA MEDICARE HU[employer] MEDICARE PPO [id number] 2013-Present [phone] [address] [place] [address] PP [id number] 2013 Medicare (Managed Care) [facility] EDICARE [id number] 2013 Medicare [id number] Unknown [id number] 2.16.840.1.011822.3.579. 2.462 Unknown [id number] 2.16.840.1.332706.3.579. 2.462 Unknown [id number] 2.16.840.1.105335.3.579. 2.462 Unknown [id number] 2.16.840.1.764100.3.579. 2.462 Unknown [id number] 2.16.840.1.000763.3.579. 2.462 Unknown [id number] 2.16.840.1.983382.3.579. 2.462 Unknown [id number] 2.16.840.1.097883.3.579. 2.462 Unknown [id number] 2.16840.1.745323.3.579. 2.462 Unknown [id number] 2.16840.1.426606.3.579. 2.462 Unknown [id number] 2.840.1.804710.3.579. 2.462 Unknown [id number] 2.16840.1.819445.3.579. 2.462 Unknown [id number] 2.16840.1.687318.3.579. 2.462 Unknown [id number] 2.16840.1.937072.3.579. 2.462 Unknown [id number] 2.16840.1.710835.3.579. 2.462 Unknown [id number] 2.16840.1.317925.3.579. 2.462 Unknown [id number] 2.16840.1.205821.3.579. 2.462 Unknown [id number] 2.16.840.1.861514.3.579. 2.462 Unknown [id number] 2.16840.1.715838.3.579. 2.462 Unknown [id number] 2.16840.1.878801.3.579. 2.462 Unknown [id number] 2.16840.1.208527.3.579. 2.462 Unknown [id number] 2.16.840.1.441118.3.579. 2.462 Unknown [id number] 2.16.840.1.793958.3.579. 2.462 Unknown [id number] 2.16.840.1.348467.3.579. 2.462 Unknown [id number] 2.16.840.1.688603.3.579. 2.462 Unknown [id number] 2.16.840.1.282173.3.579. 2.462 Unknown [id number] 2.16.840.1.649832.3.579. 2.462 Unknown [id number] 2.16.840.1.748973.3.579. 2.462 Unknown [id number] 2.16.840.1.925033.3.579. 2.462 Unknown [id number] 2.16.840.1.783914.3.579. 2.462 Unknown [id number] 2.16.840.1.507467.3.579. 2.462 Social History Date Type Detail Facility Start: 07-04-2021 End: 09-10-2023 Tobacco smoking status OHIS Unknown if ever smoked [facility] Start: 11-26-2017 None [facility] Start: 11-26-2017 Spouse/ Signif icant Other [facility] Start: 1940 Sex Assigned At Female [facility] Start: 01-16-2024 End: 05-07-2025 Tobacco smoking status NHIS Never smoked tobacco [facility] Start: 01-16-2024 Tobacco use and exposure Smokeless tobacco non-user [facility] Start: 01-16-2024 End: 11-10-2024 Alcohol intake Lifetime non-drinker (finding) [facility] Start: 01-16-2024 End: 04-06-2024 History of Social function [facility] Start: 01-16-2024 End: 04-06-2024 Tobacco use panel [facility] Start: 09-28-2012 National Score (1-100), lower number is lower risk 48 [facility] Start: 1940 Sex Assigned At Not on file [facility] Start: 09-25-2024 Gender identity Identifies as female gender (finding) [facility] Start: 01-21-2025 End: 01-26-2025 Sex Female (finding) [facility] Start: 05-14-2025 End: 05-14-2025 Tobacco smoking status NHIS Smoker (finding) [facility] NEGATED: Highlighted row Not [facility] Medical Equipment Procedure Code Equipment Code Equipment [...] FDA Start: 05-09-2025 ORIF, fracture, femur, distal ([id number]) [id number] FDA Start: 05-09-2025 ORIF, fracture, femur, distal [...] FDA Start: 05-09-2025 ORIF, fracture, femur, distal FDA Start: 05-09-2025 ORIF, fracture, femur, distal FDA Start: 05-09-2025 ORIF, fracture, femur, distal FDA Start: 05-09-2025 ORIF, fracture, femur, distal FDA Start: 05-09-2025 ORIF, fracture, femur, distal FDA Start: 05-09-2025 ORIF, fracture, femur, distal FDA Start: 05-09-2025 [id number] Radha on Uva - [id number] Start: 04-20-2024 Device Proglide Perclose 6fr Closure Suture Mediate Knot Pusher Sterile - [id number] Start: 10-30-2024 Device Proglide Perclose 6fr Closure Suture Mediate Knot Pusher Sterile - [id number] Start: 10-30-2024 Device Proglide Perclose 6fr Closure Suture Mediate Knot Pusher Sterile - [id number] Start: 10-30-2024 Device Proglide Perclose 6fr Closure Suture Mediate Knot Pusher Sterile - [id number] Start: 10-30-2024 Valve Newell Jerry 3 Ultra System 23mm - [id number] Start: 01-03-2025 Bx2 [id number] 7fr 135cm Cath Bx2 Hep Reduced Profile - [id number] Start: 10-30-2024 Goals Date Patient Goal Desired Activity /State Personal health goal Functional Status Date Assessment Result Facility 06-07-2025 Functional status Bedrest [facility] Work Phone: 06-06-2025 Functional status Standard Walker [facility] Work Phone: 06-05-2025 Functional status Well [facility] Work Phone: 05-27-2025 Functional status Chair [facility] Work Phone: 05-14-2025 Functional status Unable to Assess [facility] Work Phone: 05-14-2025 Functional status Chair [facility] Work Phone: 11-01-2024 Are you deaf, or do you have serious difficulty hearing No 11/01/2024 9:56 AM Amrita Best, FORTINO No [facility] 11-01-2024 Are you blind, or do you have serious difficulty seeing, even when wearing glasses Yes 11/01/2024 9:56 AM Amrita Best, FORTINO Yes [facility] 11-01-2024 Do you have serious difficulty walking or climbing stairs No 11/01/2024 9:56 AM Amrita Best, FORTINO No [facility] 11-01-2024 Do you have difficul ty dressing or bathing No 11/01/2024 9:56 AM Amrita Best, FORTINO No [facility] 11-01-2024 Because of a physica l, mental, or emotional condition, do you have difficulty doing errands alone such as visiting a physician's office or shopping No 11/01/2024 9:56 AM Amrita Best RN No [facility] Mental Status Date Assessment Result Facility 06-07-2025 [facility]: 05-29-2025 Cognitive function Appropriate;C ooperativ e [facility] Work Phone: 05-27-2025 Cognitive function Voice/Name [facility] Work Phone: 05-26-2025 Cognitive function Appropriate;C ooperativ e [facility] Work Phone: 05-14-2025 Cognitive function Voice/Name [facility] Work Phone: 11-01-2024 Because of a physica l, mental, or emotional condition, do you have serious difficulty concentrating, remembering, or making decisions No 11/01/2024 9:56 AM Amrita Best RN No [facility] Clinical Notes 01-16-2024 to 06-04-2025 Note Date & Type Note Facility 06-04-2025 Discharge summary Note Date/Time June 04, 2025 2:57pm [facility] Medical Records Department [address] [place] [address] Transfer to [facility] MR#: [id number] Acct: [id number] Name: GOGO WARE p #:[id number] : 1940 85 From: Eh Huddleston MD PCP: Dr. Eh Huddleston MD Status:ADM I N Certification of patient admission REQUIRED AT TIME OF ADMISSION. I CERTIFY THAT POST-HOSPITAL F SERVICES ARE REQUIRED TO BE GIVEN ON AN IN-PATIENT BASIS BECAUSE OF THE ABOVE NAMED PATIENT'S NEED FOR PRISON CARE ON A CONTINUING BASIS FOR THE CONDITION(S) FOR WHICH HE/SHE WAS RECEIVING IN-PATIENT HOSPITAL SERVICES PRIOR TO HIS/HER TRANSFER TO THE [facility]. 06/04/25 1447<Electronically signed by Eh Huddleston MD> Diet Diet [...] Additional Instructions / Restrictions: Discharge 06/07/2025 to [facility], intermediate, part B therapies. Discharge [...] can be placed): NonSkilled NH/Intermed Care 06/04/25 3637 <Electronically signed by Eh Huddleston MD> Cosigner Signature (if applicable): CC: Dr. Katelyn Kuhn MD; Dr. Eh Huddleston MD ~ [facility] Work Phone: 1(532) 837-165908-08-2025 Discharge summary Author Eh [facility] Note Date/Time June 04, 2025 2:5 6pm [facility] Medical Records Department [address] [place] [address] Discharge Summary 06/04/25 1448 MR#: [id number] Acct: [id number] Name: GOGO WARE p #:[id number] : 1940 85 From: Eh Huddleston MD PCP: Dr. Eh Huddleston MD Status:ADM I N Location: [address] Providers Date of Admission: 05/14/25 Primary Care [...] q6 x 10 days. Discharge 06/07/2025 to [facility], [facility], part B therapies. Physical Exam Const alert [...] % (Auto) 62.9, Lymph % (Auto) 19.7, Iron % (Auto) 11.2 H, Eos % (Auto) [...] No acute abnormality Reading Location: [facility] D/ Instructions Discharge Activity: Return to Normal [...] instructions: No Additional Instructions: Discharge 06/07/2025 to [facility], intermediate, part B therapies. Please [...] Additional Instructions / Restrictions: Discharge 06/07/2025 to [facility], intermediate, part B therapies. Discharge [...] be placed): NonSkilled NH/Intermed Care 06/04/25 1456 <Electronically signed by Eh Huddleston MD> Cosigner Signature (if applicable): CC: Dr. Eh Huddleston MD~ Signed [facility] Work Phone: 1(364) 573-258508-08-2025 Discharge summary [facility] Medical Records Department [address] [place] [address] Transfer to [facility] Care MR#: [id number] Acct: [id number] Name: GOGO WARE p #:[id number] : 1940 85 From: Eh Huddleston MD PCP: Dr. Eh Huddleston MD Status:ADM I N Certification of patient admission REQUIRED AT TIME OF ADMISSION. I CERTIFY THAT POST-HOSPITAL ECF SERVICES ARE REQUIRED TO BE GIVEN ON AN IN-PATIENT BASIS BECAUSE OF THE ABOVE NAMED PATIENT'S NEED FOR PRISON CARE ON A CONTINUING BASIS FOR THE CONDITION(S) FOR WHICH HE/SHE WAS RECEIVING IN-PATIENT HOSPITAL SERVICES PRIOR TO HIS/HER TRANSFER TO THE [facility]. 06/04/25 1457 Diet Diet Order/Speech Therapy: INPATIENT [...] Additional Instructions / Restrictions: Discharge 06/07/2025 to [facility], intermediate, part B therapies. Discharge [...] Kuhn MD; Dr. Eh Huddleston MD ~ [facility]08-08-2025 Discharge summary [facility] Medical Records Department [address] [place] [address] Discharge Summary 06/04/25 1448 MR#: [id number] Acct: [id number] Name: GOGO WARE p #:[id number] : 1940 85 From: Eh Huddleston MD PCP: Dr. Eh Huddleston MD Status:ADM I N Location: [place] [address] Providers Date of Admission: 05/14/25 Primary Care [...] q6 x 10 days. Discharge 06/07/2025 to [facility], intermediate, part B therapies. Physical [...] % (Auto) 62.9, Lymph % (Auto) 19.7, Iron % (Auto) 11.2 H, Eos % (Auto) [...] 11:10 IMPRESSION: No acute abnormality Reading Location: [id number] D/C Instructions Discharge Activity: Return to Normal [...] instructions: No Additional Instructions: Discharge 06/07/2025 to [facility], intermediate, part B therapies. Please [...] Additional Instructions / Restrictions: Discharge 06/07/2025 to [facility], intermediate, part B therapies. Discharge [...] applicable): CC: Dr. Eh Huddleston MD~ Signed [facility]08-08-2025 [facility]-2025 Radiology Diagnostic study note [facility] Imaging Services [address] [place] [address] [employer] Decub and/or Erect MR#: [id number] Acct: [id number] Name: GOGO WARE Rep #: [id number] : 1940 F 85 From: Tim Rogers MD PCP: Dr. Eh Huddleston MD Status: ADM I N Study:[employer] Decub and/or Erect Date of Exam : 06/04/25 Exam# [id number] Ordering Dr: Eh Huddleston MD PROCEDURE: ABD [...] Erect IMPRESSION: No acute abnormality Reading Location: [id number] CC: Dr. Eh Huddleston MD ~ Finisher Brush: Signed [facility]08-07-2025 Consult note Author Katelynderrell Kuhn [facility] Note Date/Time June 03, 2025 3:0 1pm [facility] Medical Records Department [address] [place] [address] Consultation 06/03/25 0754 MR#: [id number] Acct: [id number] Name: GOGO WARE p #:[id number] : 1940 85 From: Katelyn Millard PCP: Dr. Eh Huddleston MD Status:ADM I N Location: [place] [address] Assessment & Plan Assessment/Plan (1) Urinary retention: [...] with her catheter in place. 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 Eh Huddleston MD~ Signed [facility] Work Phone: 1(499) 759-517308-07-2025 Consult note [facility] Medical Records Department [address] [place] [address] Consultation 06/03/25 0754 MR#: [id number] Acct: [id number] Name: GOGO WARE p #:[id number] : 1940 85 From: Katelyn Millard PCP: Dr. Eh Huddleston MD Status:ADM I N Location: [place] [address] Assessment & Plan Assessment/Plan (1) Urinary retention: [...] with her catheter in place. 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 Eh Huddleston MD~ Signed [facility]08-07-2025 [facility]07-30-2025 History and physical note Author Eh Flaquito [facility] Note Date/Time May 26, 2025 7:31 am [facility] Medical Records Department [address] [place] [address] History & Physical Exam 05/14/25 1513 MR#: [id number] Acct: [id number] Name: GOGO WARE p #:[id number] : 1940 85 From: Eh Huddleston MD PCP: Dr. Eh Huddleston MD Status:ADM I N Location: [place] [address] HPI - General General Date of Admission: 05/14/25 Date of Service: 05/14/25 Chief Complaint: Here for rehabilitation. HPI Narrative GOGO WARE, is a 85 Female who presents with followin05/07/2025 [facility] ED fall. Tripped, twisted left upper leg, fell on bilateral knees, unable to walk 2/2 left thigh pain. X-ray shows left distal femur fracture. 05/07/2025 Admit [facility]. Prepare for surgery left distal femur fracture, [...] prior to discharge home alone. 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 Eh Huddleston MD~ Signed ADDENDUM by Dr. Eh Huddleston MD on 05/26/25 at 0731 Addendum UTI - UA c/w UTI, Cipro 250mg po bid x 7 days, urine culture pending. 05/26/25730<Electronically signed by Eh Huddleston MD> Cosigner Signature (if applicable): cc: Dr. Eh Huddleston MD ~* Signed [facility] Work Phone: 1(797) 328-779307-30-2025 History and physical note [facility] Medical Records Department [address] [place] [address] History & Physical Exam 05/14/25 1513 MR#: [id number] Acct: [id number] Name: GOGO WARE p #:[id number] : 1940 85 From: Eh Huddleston MD PCP: Dr. Eh Huddleston MD Status:ADM I N Location: [place] [address] HPI - General General Date of Admission: 05/14/25 Date of Service: 05/14/25 Chief Complaint: Here for rehabilitation. HPI Narrative GOGO WARE, is a 85 Female who presents with followin05/07/2025 [facility] ED fall. Tripped, twisted left upper leg, fell on bilateral knees, unable to walk 2/2 left thigh pain. X-ray shows left distal femur fracture. 05/07/2025 Admit [facility]. Prepare for surgery left distal femur fracture, [...] prior to discharge home alone. 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 Eh Huddleston MD ~* Signed [facility]07-19-2025 Progress note Author Vincent Maddox [facility] Note Date/Time May 15, 2025 10:1 4am [facility] Medical Records Department [address] [place] [address] Progress Note - Pharmacy 05/15/25 0941 MR#: [id number] Acct: [id number] Name: GOGO WARE p #:[id number] : 1940 85 From: Vincent Maddox PCP: Dr. Eh Huddleston MD Status:ADM I N Location: [facility] [place] [address] Documented by User: Vincetn Maddox 05/15/25 10:11 TCU RX Drug Regimen [...] Losartan Potassium 25 Mg Tablet PO DAILY [facility] Protocol Magnesium Citrate 300 ml 05/14/25 15:18 Magnesium Citrate 300 Ml PO X1 PRN Constipation Oxycodone HCl 2.5 - 5 mg 05/14/25 15:14 Oxycodone 5 Mg Tablet PO Q4H PRN PRN Pain Score 1-10 Pantoprazole Sodium 40 mg 05/15/25 10:00 Pantoprazole Sodium 40 Mg Tablet PO DAILY [facility] Senna/Docusate Sodium 2 tablet 05/14/25 22:00 05/14/25 [...] 1011 <Electronically signed by Vincent Maddox> Vincent Maddox Cosignnaveed Signature (if applicable): 05/15/25 1014 <Electronically signed by Eh Huddleston MD> CC: ~ Signed [facility] Work Phone: 1(277) 451-708207-19-2025 Progress note [facility] Medical Records Department [address] [place] [address] Progress Note - Pharmacy 05/15/25 0941 MR#: [id number] Acct: [id number] Name: GOGO WARE Heidi p #:[id number] : 1940 85 From: Vincent Maddox PCP: Dr. Eh Huddleston MD Status:ADM I N Location: [place] [address] Documented by User: Vincent Maddox 05/15/25 10:11 [...] Recommendations by Pharmacy Agree 05/15/25 1011 Vincent Tan Josephjessenaveed Signature (if applicable): 05/15/25 1014 CC: ~ Signed [facility]07-18-2025 [facility]07-18-2025 Discharge summary Author Manny Murdock [facility] Note Date/Time May 14, 2025 12:1 2pm [facility] Medical Records Department [address] [place] [address] Transfer to [facility] MR#: [id number] Acct: [id number] Name: GOGO WARE p #:[id number] : 1940 85 From: Manny Millard PCP: Dr. Eh Huddleston MD Status:ADM I N Certification of patient admission REQUIRED AT TIME OF ADMISSION. I CERTIFY THAT POST-HOSPITAL ECF SERVICES ARE REQUIRED TO BE GIVEN ON AN IN-PATIENT BASIS BECAUSE OF THE ABOVE NAMED PATIENT'S NEED FOR PRISON CARE ON A CONTINUING BASIS FOR THE [...] slurred speech and encephalopathy therefore transferred from [facility] to PCU. 1. Left distal femur fracture [...] (Auto) 70.8 H, Lymph % (Auto) 14.8L, Iron % (Auto) 11.2 H, Eos % (Auto) [...] 76.4 H, Lymph % (Auto) 10.7 L, Iron % (Auto) 10.9 H, Eos % (Auto) [...] the visualized lower lumbar spine are seen. Dhxb-zz-bnbcfrav degenerative changes of the visualized portions of the left knee. Reading Location: [id number] Femur X-Ray 05/07/25 07:24 IMPRESSION: A spiral [...] the visualized lower lumbar spine are seen. Jrfm-gt-vvirocoi degenerative changes of the visualized portions of the left knee. Reading Location: [id number] Femur X-Ray 05/09/25 08:00 IMPRESSION: Anatomic alignment [facility] 05/10/25 09:24 IMPRESSION: CHRONIC CHANGES. NO ACUTE FINDINGS. Reading [facility] Head/Neck CTA 05/10/25 09:35 IMPRESSION: Atherosclerotic calcific plaques at the origin of the right and left internal carotid arteries as described. Red Alert: Nothing acute The critical information above was relayed directly by me by telephone to Sourav Casiano on 05/10/2025 at 9:55 am with readback verification. Reading Location: [facility] Brain MRI 05/11/25 12:05 IMPRESSION: 1. [...] Domenic Blanco; Mp Petersen; Yordan Alfaro; Yolanda Arrioal; Benjamín Trinidad Discharge Orders/Prescriptions Prescriptions: New atorvastatin [...] in before D/C Order can be placed): Senior Living Facility (1) Femoral distal fracture Qualifiers: Encounter [...] Melissa Quinonez DO; Benjamín Trinidad MD ~ [facility] Work Phone: 1(347) 687-122807-18-2025 Hospital Discharge instructionsAdditional Instructions Date of Discharge: 05/14/25[facility] Work Phone: 1(265) 544-864807-18-2025 Discharge summary [facility] Medical Records Department [address] [place] [address] Discharge Summary 05/14/25 1237 MR#: [id number] Acct: [id number] Name: GOGO WARE p #:[id number] : 1940 85 From: Manny Millard PCP: Dr. Eh Huddleston MD Status:ADM I N Location: [address] Providers Date of Admission: 05/07/25 Date of [...] of Notification: Answering Service Comments:: [facility] Notify [facility] Tele-Neurology [...] slurred speech and encephalopathy therefore transferred from [facility] to U. 1. Left distal femur fracture secondary to [...] the visualized lower lumbar spine are seen. Imcx-xo-jtpacuyy degenerative changes of the visualized portions of the left knee. Reading Location: [id number] Femur X-Ray 05/07/25 07:24 IMPRESSION: A spiral [...] the visualized lower lumbar spine are seen. Hjqp-cr-xbbjlluw degenerative changes of the visualized portions of the left knee. Reading Location: [id number] Femur X-Ray 05/09/25 08:00 IMPRESSION: Anatomic alignment Reading [facility] CT 05/10/25 09:24 IMPRESSION: CHRONIC CHANGES. NO ACUTE FINDINGS. Reading Location: [facility] Head/Neck CTA 05/10/25 09:35 IMPRESSION: Atherosclerotic calcific plaques at the origin of the right and left internal carotid arteries as described. Red Alert: Nothing acute The critical information above was relayed directly by me by telephone to Sourav Casiano on 05/10/2025 at 9:55 am with readback verification. Reading Location: [facility]-1 Brain MRI 05/11/25 12:05 IMPRESSION: 1. [...] (Auto) 67.5, Lymph % (Auto) 18.1 L, Iron % (Auto) 10.3 H, Eos % (Auto) [...] Recorder Preventi (Urgent) Timeframe: 1 Day Facility: [facility] - Location: Cardiovascular Services Ordered By: Dr. [...] in before D/C Order can be placed): Senior Living Facility 05/14/25 1244 Cosigner Signature (if applicable): CC: Dr. Manny Murdock MD; Dr. Eh Huddleston MD~ Signed [facility]07-18-2025 [facility]07-18-2025 Discharge summary [facility] Medical Records Department [address] [place] [address] Transfer to [facility] MR#: [id number] Acct: [id number] Name: GOGO WARE p #:[id number] : 1940 85 From: Manny Millard PCP: Dr. Eh Huddleston MD Status:ADM I N Certification of patient admission REQUIRED AT TIME OF ADMISSION. I CERTIFY THAT POST-HOSPITAL ECF SERVICES ARE REQUIRED TO BE GIVEN ON AN IN-PATIENT BASIS BECAUSE OF THE ABOVE NAMED PATIENT'S NEED FOR PRISON CARE ON A CONTINUING BASIS FOR THE CONDITION(S) FOR WHICH HE/SHE WAS RECEIVING IN-PATIENT HOSPITAL SERVICES PRIOR TO HIS/HER TRANSFER TO THE ECF. 05/14/25 1212 Diet Diet Order/Speech Therapy: INPATIENT [...] slurred speech and encephalopathy therefore transferred from [facility] to PCU. 1. Left distal femur fracture [...] (Auto) 70.8 H, Lymph % (Auto) 14.8L, Iron % (Auto) 11.2 H, Eos % (Auto) [...] 76.4 H, Lymph % (Auto) 10.7 L, Iron % (Auto) 10.9 H, Eos % (Auto) [...] the visualized lower lumbar spine are seen. Iuym-xi-snipijjn degenerative changes of the visualized portions of the left knee. Reading Location: [id number] Femur X-Ray 05/07/25 07:24 IMPRESSION: A spiral [...] the visualized lower lumbar spine are seen. Yfkf-nf-zrjvnvns degenerative changes of the visualized portions of the left knee. Reading Location: [id number] Femur X-Ray 05/09/25 08:00 IMPRESSION: Anatomic alignment Reading [facility] CT 05/10/25 09:24 IMPRESSION: CHRONIC CHANGES. NO ACUTE FINDINGS. Reading Location: [facility]-1 Head/Neck CTA 05/10/25 09:35 IMPRESSION: Atherosclerotic calcific plaques at the origin of the right and left internal carotid arteries as described. Red Alert: Nothing acute The critical information above was relayed directly by me by telephone to Sourav Casiano on 05/10/2025 at 9:55 am with readback verification. Reading Location: [facility] Brain MRI 05/11/25 12:05 IMPRESSION: 1. [...] in before D/C Order can be placed): Senior Living Facility (1) Femoral distal fracture Qualifiers: Encounter type: initial encounter Fracture type: closed Laterality: left 05/14/25 1212 Cosigner Signature (if applicable): CC: Sondra Lira; Kayla Perez; Domenic Blanco; Elva Maxwell MD; Georgina Sosa MD; Nathan Heredia MD; Dr. Des Link MD; Dr. Seng Daniel MD; Dr. Flornia MD; Dr. Marco Zafar MD; Dr. Piero Richard MD; Dr. Armin Street MD; Dr. Sourav Casiano DO; Dr. Malachi Charles DO; Dr. Maria Guadalupe Rocha MD; Dr. Maikel Arreaga MD; Dr. Santhosh Livingston DO; Dr. Mp Petersen MD; Dr. Yordan Alfaro MD; Dr. Eh Huddleston MD; Dr. Yolanda Arriola MD; Melissa Quinonez DO; Benjamín Trinidad MD ~ [facility]07-17-2025 Progress note Author Manny Murdock [facility] Note Date/Time May 13, 2025 4:09 pm [facility] Medical Records Department [address] [place] [address] Progress Note - Hospitalist 05/13/25 1606 MR#: [id number] Acct: [id number] Name: GOGO WARE p #:[id number] : 1940 85 From: Manny Millard PCP: Dr. Eh Huddleston MD Status:ADM I N Location: [place] [address] Reason for Visit Chief Complaint: Left leg [...] (Auto) 70.8 H, Lymph % (Auto) 14.8L, Iron % (Auto) 11.2 H, Eos % (Auto) [...] slurred speech and encephalopathy therefore transferred from [facility] to PCU. 1. Left distal femur fracture [...] (Auto) 70.8 H, Lymph % (Auto) 14.8L, Iron % (Auto) 11.2 H, Eos % (Auto) [...] 76.4 H, Lymph % (Auto) 10.7 L, Iron % (Auto) 10.9 H, Eos % (Auto) [...] the visualized lower lumbar spine are seen. Xelb-uk-yzdspvuk degenerative changes of the visualized portions of the left knee. Reading Location: [id number] Femur X-Ray 05/07/25 07:24 IMPRESSION: A spiral [...] the visualized lower lumbar spine are seen. Xrrw-bi-pdqdafeo degenerative changes of the visualized portions of the left knee. Reading Location: [id number] Femur X-Ray 05/09/25 08:00 IMPRESSION: Anatomic alignment Reading Location: [facility] Brain CT 05/10/25 09:24 IMPRESSION: CHRONIC CHANGES. NO ACUTE FINDINGS. Reading Location: [facility] Head/Neck CTA 05/10/25 09:35 IMPRESSION: Atherosclerotic calcific plaques at the origin of the right and left internal carotid arteries as described. Red Alert: Nothing acute The critical information above was relayed directly by me by telephone to Sourav Casiano on 05/10/2025 at 9:55 am with readback verification. Reading Location: [facility]-1 Brain MRI 05/11/25 12:05 IMPRESSION: 1. [...] and Student Charges/Coding Visit Charges Inpatient E&M: 61180 Subs Hosp L2 NIHSS NIHSS Nursing Documentation NIHSS Nursing Documentation: NIHSS: Ischemic Stroke/TIA Start: 05/12/25 09:41 Freq: [id number] Status: Active Protocol: Activity Type Activity Date Activity User E-sign Co-sign Detail Recorded Client Recorded Date Recorded By Document 05/13/25 11:18 EM [id number] 05/13/25 13:00 EM 05/13/25 11:18 NIH Stroke [...] Cosigner Signature (if applicable): CC: ~ Signed [facility] Work Phone: 1(966) 755-315107-17-2025 Progress note [facility] Medical Records Department [address] [place] [address] Progress Note - Hospitalist 05/13/25 1606 MR#: [id number] Acct: [id number] Name: GOGO WARE Heidi p #:[id number] : 1940 85 From: Manny Millard PCP: Dr. Eh Huddleston MD Status:ADM I N Location: [place] [address] Reason for Visit Chief Complaint: Left leg [...] (Auto) 70.8 H, Lymph % (Auto) 14.8L, Iron % (Auto) 11.2 H, Eos % (Auto) [...] slurred speech and encephalopathy therefore transferred from [facility] to PCU. 1. Left distal femur fracture [...] (Auto) 70.8 H, Lymph % (Auto) 14.8L, Iron % (Auto) 11.2 H, Eos % (Auto) [...] 76.4 H, Lymph % (Auto) 10.7 L, Iron % (Auto) 10.9 H, Eos % (Auto) [...] the visualized lower lumbar spine are seen. Iqlr-hl-nnzvjvli degenerative changes of the visualized portions of the left knee. Reading Location: [address] Femur X-Ray 05/07/25 07:24 IMPRESSION: A [...] the visualized lower lumbar spine are seen. Cbxq-gb-cmcfrixr degenerative changes of the visualized portions of the left knee. Reading Location: [id number] Femur X-Ray 05/09/25 08:00 IMPRESSION: Anatomic alignment Reading Location: [facility] Brain CT 05/10/25 09:24 IMPRESSION: CHRONIC CHANGES. NO ACUTE FINDINGS. Reading Location: [facility] Head/Neck CTA 05/10/25 09:35 IMPRESSION: Atherosclerotic calcific plaques at the origin of the right and left internal carotid arteries as described. Red Alert: Nothing acute The critical information above was relayed directly by me by telephone to Sourav Casiano on 05/10/2025 at 9:55 am with readback verification. Reading Location: [facility] Brain MRI 05/11/25 12:05 IMPRESSION: 1. [...] and Student Charges/Coding Visit Charges Inpatient E&M: 46263 Subs Hosp L2 NIHSS NIHSS Nursing Documentation NIHSS Nursing Documentation: NIHSS: Ischemic Stroke/TIA Start: 05/12/25 09:41 Freq: [id number] Status: Active Protocol: Activity Type Activity Date Activity User E-sign Co-sign Detail Recorded Client Recorded Date Recorded By Document 05/13/25 11:18 EM [id number] 05/13/25 13:00 EM 05/13/25 11:18 NIH Stroke [...] Cosigner Signature (if applicable): CC: ~ Signed [facility]07-17-2025 Progress note Author Deann Santana [facility] Note Date/Time May 13, 2025 11:0 8am [facility] Medical Records Department [address] [place] [address] Progress Note - Neurology 05/13/25 1106 MR#: [id number] Acct: [id number] Name: GOGO WARE p #:[id number] : 1940 85 From: Deann Santana MD PCP: Dr. 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 Would recommend secured entrance monitor/30-day event monitor at discharge Would recommend vascular risk factor modification ? LDL Goal < 70 ? Smoking Cessation ? Diabetes Management ? bed bug exterminator blood pressure control should achieve <130/80 mmHg. BP management should aim to achieve bed bug exterminator contorl in a reasonable amount of time, taking into consideration the individual patient's requirements and characteristics. ? Weight Management: Goal for BMI is 18.5 -24.9 kg/mg ? Alcohol: No more than 2 drinks/day for men or 1 drink/day for non- women ? Promote lifestyle modification: weight control, physical activity, moderation of alcohol intake, moderate sodium intake. 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 Ensure PCP follow up in 1- 2 weeks. Cardiology follow up as needed. NIHSS NIHSS Nursing Documentation NIHSS Nursing Documentation: NIHSS: Ischemic Stroke/TIA Start: 05/12/25 09:41 Freq: [id number] Status: Active Protocol: Activity Type Activity Date [...] Cosigner Signature (if applicable): CC: ~ Signed [facility] Work Phone: 1(549) 769-651907-17-2025 Progress note [facility] Medical Records Department [address] [place] [address] Progress Note - Neurology 05/13/25 1106 MR#: [id number] Acct: [id number] Name: GOGO WARE p #:[id number] : 1940 85 From: Deann Santana MD PCP: Dr. Eh Huddleston MD Status:ADM I N Location: [place] [address] Objective Data Objective Data Vital Signs: Vital [...] 76.4 H, Lymph % (Auto) 10.7 L, Iron % (Auto) 10.9 H, Eos % (Auto) [...] (Auto) 70.8 H, Lymph % (Auto) 14.8L, Iron % (Auto) 11.2 H, Eos % (Auto) [...] HTN, and Glaucoma who is admitted to [facility] for L femur fracture s/p L ORIF [...] add additionalAC/AP to this regimen. Would recommend secured entrance monitor/30-day event monitor at discharge Would recommend vascular risk factor modification ? LDL Goal < 70 ? Smoking Cessation ? Diabetes Management ? custodial blood pressure control should achieve <130/80 mmHg. BP management should aimto achieve bed bug exterminator contorl in a reasonable amount of time, taking into consideration the individual patient's requirements and characteristics. ? Weight Management: Goal for BMI is 18.5 -24.9 kg/mg ? Alcohol: No more than 2 drinks/day for men or 1 drink/day for non- women ? Promote lifestyle modification: weight control, physical activity, moderation of alcohol intake, moderate sodium intake. 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 Ensure PCP follow up in 1- 2 weeks.Cardiology follow up as needed. NIHSS NIHSS Nursing Documentation NIHSS Nursing Documentation: NIHSS: Ischemic Stroke/TIA Start: 05/12/25 09:41 Freq: [id number] Status: Active Protocol: Activity Type Activity Date [...] Cosigner Signature (if applicable): CC: ~ Signed [facility]07-16-2025 Progress note Author Manny Murdock [facility] Note Date/Time May 12, 2025 4:26 pm [facility] Medical Records Department [address] [place] [address] Progress Note - Hospitalist 05/12/25 1612 MR#: [id number] Acct: [id number] Name: GOGO WARE p #:[id number] : 1940 85 From: Manny Millard PCP: Dr. Eh Huddleston MD Status:ADM I N Location: [place] [address] Reason for Visit Chief Complaint: Left leg [...] 76.4 H, Lymph % (Auto) 10.7 L, Iron % (Auto) 10.9 H, Eos % (Auto) [...] hemorrhage, extra-axial collection, or mass-effect. Reading Location: [id number] Echocardiogram 05/11/25 19:18 Interpretation Summary The estimated [...] slurred speech and encephalopathy therefore transferred from [facility] to U. 1. Left distal femur fracture secondary to [...] 76.4 H, Lymph % (Auto) 10.7 L, Iron % (Auto) 10.9 H, Eos % (Auto) [...] the visualized lower lumbar spine are seen. Iayi-ga-hadkkovb degenerative changes of the visualized portions of the left knee. Reading Location: [address] Femur X-Ray 05/07/25 07:24 IMPRESSION: A [...] the visualized lower lumbar spine are seen. Lcik-ys-uadzvlqa degenerative changes of the visualized portions of the left knee. Reading Location: [id number] Femur X-Ray 05/09/25 08:00 IMPRESSION: Anatomic alignment [facility] 05/10/25 09:24 IMPRESSION: CHRONIC CHANGES. NO ACUTE FINDINGS. Reading Location: [facility] Head/Neck CTA 05/10/25 09:35 IMPRESSION: Atherosclerotic calcific plaques at the origin of the right and left internal carotid arteries as described. Red Alert: Nothing acute The critical information above was relayed directly by me by telephone to Sourav Casiano on 05/10/2025 at 9:55 am with readback verification. Reading Location: [facility] Brain MRI 05/11/25 12:05 IMPRESSION: 1. [...] is 35 minutes. Visit Charges Inpatient E&M: 47375 Subs Hosp L3 NIHSS NIHSS Nursing Documentation NIHSS Nursing Documentation: NIHSS: Ischemic Stroke/TIA Start: 05/12/25 09:41 Freq: [id number] Status: Active Protocol: Activity Type Activity Date Activity User E-sign Co-sign Detail Recorded Client Recorded Date Recorded By Document 05/12/25 12:32 [facility] [id number] 05/12/25 12:41 [facility] 05/12/25 12:32 NIH Stroke Scale [NIHSS] A [...] Cosigner Signature (if applicable): CC: ~ Signed [facility] Work Phone: 1(264) 645-799507-16-2025 Progress note [facility] Medical Records Department [address] [place] [address] Progress Note - Hospitalist 05/12/25 1612 MR#: [id number] Acct: [id number] Name: GOGO WARE p #:[id number] : 1940 85 From: Manny Millard PCP: Dr. Eh Huddleston MD Status:ADM I N Location: [place] [address] Reason for Visit Chief Complaint: Left leg [...] 76.4 H, Lymph % (Auto) 10.7 L, Iron % (Auto) 10.9 H, Eos % (Auto) [...] hemorrhage, extra-axial collection, or mass-effect. Reading Location: [id number] Echocardiogram 05/11/25 19:18 Interpretation Summary The estimated [...] slurred speech and encephalopathy therefore transferred from [facility] to PCU. 1. Left distal femur fracture [...] 76.4 H, Lymph % (Auto) 10.7 L, Iron % (Auto) 10.9 H, Eos % (Auto) [...] the visualized lower lumbar spine are seen. Nnkz-js-zvbzpiml degenerative changes of the visualized portions of the left knee. Reading Location: [id number] Femur X-Ray 05/07/25 07:24 IMPRESSION: A spiral [...] the visualized lower lumbar spine are seen. Wdgh-ji-qmtujivh degenerative changes of the visualized portions of the left knee. Reading Location: [id number] Femur X-Ray 05/09/25 08:00 IMPRESSION: Anatomic alignment Reading [facility] Brain CT 05/10/25 09:24 IMPRESSION: CHRONIC CHANGES. NO ACUTE FINDINGS. Reading Location: [id number]-IR-1 Head/Neck CTA 05/10/25 09:35 IMPRESSION: Atherosclerotic calcific plaques at the origin of the right and left internal carotid arteries as described. Red Alert: Nothing acute The critical information above was relayed directly by me by telephone to Sourav Casiano on 05/10/2025 at 9:55 am with readback verification. Reading Location: [facility] Brain MRI 05/11/25 12:05 IMPRESSION: 1. [...] is 35 minutes. Visit Charges Inpatient E&M: 97238 Subs Hosp L3 NIHSS NIHSS Nursing Documentation NIHSS Nursing Documentation: NIHSS: Ischemic Stroke/TIA Start: 05/12/25 09:41 Freq: [id number] Status: Active Protocol: Activity Type Activity Date Activity User E-sign Co-sign Detail Recorded Client Recorded Date Recorded By Document 05/12/25 12:32 [facility] [id number] 05/12/25 12:41 [facility] 05/12/25 12:32 NIH Stroke Scale [NIHSS] A [...] Cosigner Signature (if applicable): CC: ~ Signed [facility]07-16-2025 Consult note Author Deann Santana [facility] Note Date/Time May 12, 2025 1:24 pm [facility] Medical Records Department [address] [place] [address] Consultation - Neurology 05/12/25 1318 MR#: [id number] Acct: [id number] Name: GOGO WARE p #:[id number] : 1940 85 From: Deann Santana MD PCP: Dr. 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 Start high intensity statin Would recommend secured entrance monitor/30-day event monitor at discharge Would recommend vascular risk factor modification LDL Goal < 70 Smoking Cessation Diabetes Management custodial blood pressure control should achieve <130/80 mmHg. BP managementshould aim to achieve bed bug exterminator contorl in a reasonable amount of time, taking into consideration the individual patient's requirements and characteristics. Weight Management: Goal for BMI is 18.5 -24.9 kg/m2 Alcohol: No more than 2 drinks/day for men or 1 drink/day for non- women Promote lifestyle modification: weight control, physical activity, moderation of alcohol intake, moderate sodium intake. 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 Ensure PCP follow up in 1- 2 weeks. Cardiology follow up as needed. 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 [facility] Medical History Laceration of leg Closed head injury Abrasions of multiple sites Laceration of lip Pure hypercholesterolemia Nonrheumatic aortic (valve) stenosis Non-ST elevation (NSTEMI) myocardial infarction Old myocardial infarction Atherosclerotic heart disease of nikolai coronary artery without angina pectoris Essential hypertension [...] 76.4 H, Lymph % (Auto) 10.7 L, Iron % (Auto) 10.9 H, Eos % (Auto) [...] hemorrhage, extra-axial collection, or mass-effect. Reading Location: [facility] Echocardiogram 05/11/25 19:18 Interpretation Summary The estimated [...] 81 Mg Tab.Chew PO 81 mg BREAKFAST RBOE Administration Atorvastatin Calcium 40 mg 05/07/25 22:00 [...] mls @ 15 mls/hr 05/09/25 15:53 IV .[id number] PRN Additional IVPB Infusion Labetalol HCl 10 [...] NIHSS: Ischemic Stroke/TIA Start: 05/12/25 09:41 Freq: [id number] Status: Active Protocol: Activity Type Activity Date Activity User E-sign Co-sign Detail Recorded Client Recorded Date Recorded By Document 05/12/25 12:32 [facility] [id number] 05/12/25 12:41 [facility] 05/12/25 12:32 NIH Stroke Scale [NIHSS] A [...] > / = 3 points. 05/12/25 1324 <Electronically signed by Deann Santana MD> Cosigner Signature (if applicable): CC: Dr. Eh Huddleston MD~ Signed [facility] Work Phone: 1(472) 652-655007-16-2025 Progress note Author Alice Pathak [facility] Note Date/Time May 12, 2025 12:2 5pm [facility] Medical Records Department [address] [place] [address] Progress Note - Orthopedic 05/12/25 1212 MR#: [id number] Acct: [id number] Name: GOGO WARE p #:[id number] : 1940 85 From: Alice DOW PCP: Dr. Eh Huddleston MD Status:ADM I N Location: [place] [address] Subjective Subjective Patient is an 85-year-old female [...] 76.4 H, Lymph % (Auto) 10.7 L, Iron % (Auto) 10.9 H, Eos % (Auto) [...] hemorrhage, extra-axial collection, or mass-effect. Reading Location: [facility] Physical Exam Narrative spontaneously awake and responsive [...] Cosigner Signature (if applicable): CC: ~ Signed [facility] Work Phone: 1(654) 262-829007-16-2025 Consult note [facility] Medical Records Department [address] [place] [address] Consultation - Neurology 05/12/25 1318 MR#: [id number] Acct: [id number] Name: GOGO WARE Heidi p #:[id number] : 1940 85 From: Deann Santana MD PCP: Dr. 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 [...] moderation of alcohol intake, moderate sodium intake. 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 Ensure PCP follow up in 1- 2 weeks.Cardiology follow up as needed. 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 Reading Location: [facility] Echocardiogram 05/11/25 19:18 Interpretation Summary The estimated [...] mls @ 15 mls/hr 05/09/25 15:53 IV .[id number] PRN Additional IVPB Infusion Labetalol HCl 10 [...] NIHSS: Ischemic Stroke/TIA Start: 05/12/25 09:41 Freq: [id number] Status: Active Protocol: Activity Type Activity Date Activity User E-sign Co-sign Detail Recorded Client Recorded Date Recorded By Document 05/12/25 12:32 [facility] [id number] 05/12/25 12:41 [facility] 05/12/25 12:32 NIH Stroke Scale [NIHSS] A [...] Cosigner Signature (if applicable): CC: Dr. Eh Hdudleston MD~ Signed [facility]07-16-2025 Progress note [facility] Medical Records Department [address] [place] [address] Progress Note - Orthopedic 05/12/25 1212 MR#: [id number] Acct: [id number] Name: GOGO WARE p #:[id number] : 1940 85 From: Alice DOW PCP: Dr. Eh Huddleston MD Status:ADM I N Location: [place] [address] Subjective Subjective Patient is an 85-year-old female [...] 76.4 H, Lymph % (Auto) 10.7 L, Iron % (Auto) 10.9 H, Eos % (Auto) [...] hemorrhage, extra-axial collection, or mass-effect. Reading Location: [id number] Physical Exam Narrative spontaneously awake and responsive [...] lakeisha remain x 2 week. 05/12/25 1225 Cosigner Signature (if applicable): CC: ~ Signed [facility]07-15-2025 Progress note Author [facility]rav [facility]. [facility] Note Date/Time May 11, 2025 7:20 pm [facility] Medical Records Department [address] [place] [address] Progress Note - Hospitalist 05/11/251914 MR#: [id number] Acct: [id number] Name: GOGO WARE Heidi p #:[id number] : 1940 85 From: Sourav Casiano DO PCP: Dr. Eh Huddleston MD Status:ADM I N Location: [place]3 [id number] Hospitalist Note MRI of the brain was performed today, it showed multiple acute small strokes felt to be embolic in nature, I will have teleneurology see the patient tomorrow. I have made the decision to stop the patient's antibiotics at this time. Patient remains on a statin and Eliquis at this time. 05/11/251919 <Electronically signed by Sourav Tereletsky DO> Cosigner Signature (if applicable): CC: ~ Signed [facility] Work Phone: 1(841) 933-774007-15-2025 Progress note [facility] Medical Records Department [address] [place] [address] Progress Note - Hospitalist 05/11/251914 MR#: [id number] Acct: [id number] Name: GOGO WARE p #:[id number] : 1940 85 From: Sourav Casiano DO PCP: Dr. Eh Huddleston MD Status:ADM I N Location: [place] BO495-9 Hospitalist Note MRI of the brain was performed today, it showed multiple acute small strokes felt to be embolic in nature, I will have teleneurology see the patient tomorrow. I have made the decision to stop the patient's antibiotics at this time. Patient remains on a statin and Eliquis at this time. 05/11/251919 Cosigner Signature (if applicable): CC: ~ Signed [facility]07-15-2025 Progress note Author Alice Pathak [facility] Note Date/Time May 11, 2025 4:17 pm [facility] Medical Records Department [address] [facility] [place] [address] Progress Note - Orthopedic 05/11/25 1609 MR#: [id number] Acct: [id number] Name: GOGO WARE p #:[id number] : 1940 85 From: Alice DOW PCP: Dr. Eh Huddleston MD Status:ADM I N Location: [place] BL594-8 Subjective Subjective Patient is an 85-year-old female [...] 80.2 H, Lymph % (Auto) 6.5 L, Iron % (Auto) 12.8 H, Eos % (Auto) [...] Clarity Clear, Urine pH 5.0, Ur Specific [place] 1.020, Urine Protein 15 H, Urine Glucose [...] % (Auto) Cancelled, Lymph % (Auto) Cancelled, Iron % (Auto) Cancelled, Eos % (Auto) Cancelled, [...] Drop Cells Cancelled, Ovalocytes Cancelled, Stomatocytes Cancelled, Arredondo-Mona Bodies Cancelled, Sharifa Cells Cancelled, Bite Cells [...] 80.9 H, Lymph % (Auto) 7.8 L, Iron % (Auto) 10.4 H, Eos % (Auto) [...] placement. - Case management - D/C planning 05/11/251616 <Electronically signed by Alice DOW> Cosigner Signature (if applicable): CC: ~ Signed [facility] Work Phone: 1(271) 241-538907-15-2025 Progress note Author Sourav Casiano [facility] Note Date/Time May 11, 2025 3:23 pm [facility] Medical Records Department [address] [place] [address] Progress Note - Hospitalist 05/11/25 1514 MR#: [id number] Acct: [id number] Name: GOGO WARE p #:[id number] : 1940 85 From: Sourav Casiano DO PCP: Dr. Eh Huddleston MD Status:ADM I N Location: [place] [address] Reason for Visit Chief Complaint: Left leg [...] 80.2 H, Lymph % (Auto) 6.5 L, Iron % (Auto) 12.8 H, Eos % (Auto) [...] Clarity Clear, Urine pH 5.0, Ur Specific [place] 1.020, Urine Protein 15 H, Urine Glucose [...] % (Auto) Cancelled, Lymph % (Auto) Cancelled, Iron % (Auto) Cancelled, Eos % (Auto) Cancelled, [...] Drop Cells Cancelled, Ovalocytes Cancelled, Stomatocytes Cancelled, Arredondo-Mona Bodies Cancelled, Rollins Cells Cancelled, Bite Cells Cancelled, Crenated Cell Cancelled, Acanthocytes (Spur) Cancelled, Rouleaux Cancelled, Schistocytes Cancelled 05/11/25 09:15: WBC 10.3, RBC 2.02 L, Hgb 6.3 L, Hct 18.5 L, MCV 91.6, MCH 31.2,MCHC 34.1, RDW Std Deviation 47.1 H, RDW Coeff of Alex 13.9, Plt Count 114 L, MPV10.7, Immature Gran % (Auto) 0.300, Neut % (Auto) 80.9 H, Lymph % (Auto) 7.8 L, Iron % (Auto) 10.4 H, Eos % (Auto) [...] patient may need short-term stay in a [place] [facility] [place] facility for rehab services #2 history of [...] 35- minutes Charges/Coding Visit Charges Inpatient E&M: 66342 Subs Hosp L2 05/11/25 1523 <Electronically signed by Sourav Casiano DO> Cosigner Signature (if applicable): CC: ~ Signed [facility] Work Phone: 1(776) 128-467607-15-2025 Progress note [facility] Medical Records Department [address] [place] [address] Progress Note - Orthopedic 05/11/25 1609 MR#: [id number] Acct: [id number] Name: GOGO WARE p #:[id number] : 1940 85 From: Alice DOW PCP: Dr. Eh Huddleston MD Status:ADM I N Location: [place] [id number] Subjective Subjective Patient is an 85-year-old female [...] 80.2 H, Lymph % (Auto) 6.5 L, Iron % (Auto) 12.8 H, Eos % (Auto) [...] Clarity Clear, Urine pH 5.0, Ur Specific [place] 1.020, Urine Protein 15 H, Urine Glucose [...] % (Auto) Cancelled, Lymph % (Auto) Cancelled, Iron % (Auto) Cancelled, Eos % (Auto) Cancelled, [...] Drop Cells Cancelled, Ovalocytes Cancelled, Stomatocytes Cancelled, Arredondo-Mona Bodies Cancelled, Rollins Cells Cancelled, Bite Cells Cancelled, Crenated Cell Cancelled, Acanthocytes (Spur) Cancelled, Rouleaux Cancelled, Schistocytes Cancelled 05/11/25 09:15: WBC 10.3, RBC 2.02 L, Hgb 6.3 L, Hct 18.5 L, MCV 91.6, MCH 31.2,MCHC 34.1, RDW Std Deviation 47.1 H, RDW Coeff of Alex 13.9, Plt Count 114 L, MPV10.7, Immature Gran % (Auto) 0.300, Neut % (Auto) 80.9 H, Lymph % (Auto) 7.8 L, Iron % (Auto) 10.4 H, Eos % (Auto) [...] Cosigner Signature (if applicable): CC: ~ Signed [facility]07-15-2025 Progress note [facility] Medical Records Department [address] [place] [address] Progress Note - Hospitalist 05/11/25 1514 MR#: [id number] Acct: [id number] Name: GOGO WARE p #:[id number] : 1940 85 From: Sourav Casiano DO PCP: Dr. Eh Huddleston MD Status:ADM I N Location: [place] DP100-8 Reason for Visit Chief Complaint: Left leg [...] 80.2 H, Lymph % (Auto) 6.5 L, Iron % (Auto) 12.8 H, Eos % (Auto) [...] Clarity Clear, Urine pH 5.0, Ur Specific [place] 1.020, Urine Protein 15 H, Urine Glucose [...] % (Auto) Cancelled, Lymph % (Auto) Cancelled, Iron % (Auto) Cancelled, Eos % (Auto) Cancelled, [...] Drop Cells Cancelled, Ovalocytes Cancelled, Stomatocytes Cancelled, Arredondo-Mona Bodies Cancelled, Rollins Cells Cancelled, Bite Cells Cancelled, Crenated Cell Cancelled, Acanthocytes (Spur) Cancelled, Rouleaux Cancelled, Schistocytes Cancelled 05/11/25 09:15: WBC 10.3, RBC 2.02 L, Hgb 6.3 L, Hct 18.5 L, MCV 91.6, MCH 31.2,MCHC 34.1, RDW Std Deviation 47.1 H, RDW Coeff of Alex 13.9, Plt Count 114 L, MPV10.7, Immature Gran % (Auto) 0.300, Neut % (Auto) 80.9 H, Lymph % (Auto) 7.8 L, Iron % (Auto) 10.4 H, Eos % (Auto) [...] patient may need short-term stay in a [place] facility for rehab services #2 history of [...] team: 35-minutes Charges/Coding Visit Charges Inpatient E&M: 14654 Subs Hosp L2 05/11/25 1523 Cosigner Signature (if applicable): CC: ~ Signed [facility]07-14-2025 Progress note Author Sourav Casiano [facility] Note Date/Time May 10, 2025 6:27 pm [facility] Medical Records Department [address] [place] [address] Progress Note - Hospitalist 05/10/25 1820 MR#: [id number] Acct: [id number] Name: CHAZGOGOYUKO alvarado #:[id number] : 1940 85 From: Sourav Casiano DO PCP: Dr. Eh Huddleston MD Status:ADM I N Location: [place]3 OB373-3 Reason for Visit Chief Complaint: Left leg [...] 80.2 H, Lymph % (Auto) 6.5 L, Iron % (Auto) 12.8 H, Eos % (Auto) 0.1, Baso % (Auto) 0.1, Absolute Neuts(auto) 11.5 H, Absolute Lymphs (auto) 0.93, Nucleated RBC % 0, Troponin T High Sens 36 H Radiography Diagnostic Testing: Radiology Impression Brain CT 05/10/25 09:24 IMPRESSION: CHRONIC CHANGES. NO ACUTE FINDINGS. Reading Location: [facility] Head/Neck CTA 05/10/25 09:35 IMPRESSION: Atherosclerotic calcific plaques at the origin of the right and left internal carotid arteries as described. Red Alert: Nothing acute The critical information above was relayed directly by me by telephone to Sourav Casiano on 05/10/2025 at 9:55 am with readback verification. Reading Location: [facility] Physical Exam Narrative alert, oriented x3, [...] patient may need short-term stay in a [place] facility for rehab services #2 history of [...] team: 50-minute Charges/Coding Visit Charges Inpatient E&M: 70950 Subs Hosp L3 05/10/251826 <Electronically signed by Sourav Casiano DO> Cosigner Signature (if applicable): CC: ~ Signed [facility] Work Phone: 1(736) 694-185407-14-2025 Progress note [facility] Medical Records Department [address] [facility] [place] [address] Progress Note - Hospitalist 05/10/251821 MR#: [id number] Acct: [id number] Name: GOGO WARE p #:[id number] : 1940 85 From: Sourav Casiano DO PCP: Dr. Eh Huddleston MD Status:ADM I N [facility] for Visit Chief Complaint: Left leg [...] 80.2 H, Lymph % (Auto) 6.5 L, Iron % (Auto) 12.8 H, Eos % (Auto) 0.1, Baso % (Auto) 0.1, Absolute Neuts(auto) 11.5 H, Absolute Lymphs (auto) 0.93, Nucleated RBC % 0, Troponin T High Sens 36 H Radiography Diagnostic Testing: Radiology Impression Brain CT 05/10/25 09:24 IMPRESSION: CHRONIC CHANGES. NO ACUTE FINDINGS. Reading Location: [facility] Head/Neck CTA 05/10/25 09:35 IMPRESSION: Atherosclerotic calcific plaques at the origin of the right and left internal carotid arteries as described. Red Alert: Nothing acute The critical information above was relayed directly by me by telephone to Sourav Casiano on 05/10/2025 at 9:55 am with readback verification. Reading Location: [facility] Physical Exam Narrative alert, oriented x3, [...] patient may need short-term stay in a [place] facility for rehab services #2 history of [...] team: 50-minute Charges/Coding Visit Charges Inpatient E&M: 66509 [facility] Hosp 05/10/25 3726 Cosigner Signature (if applicable): CC: ~ Signed [facility]07-14-2025 Progress note Author Santhosh Livingston [facility] Note Date/Time May 10, 2025 10:1 2am [facility] Medical Records Department [address] [place] [address] Progress Note - Orthopedic 05/10/25 1009 MR#: [id number] Acct: [id number] Name: GOGO WARE p #:[id number] : 1940 85 From: Santhosh randolph DO PCP: Dr. Eh Huddleston MD Status:ADM I N Location: [place] [address]-1 Subjective Subjective Patient seen and examined. Stroke [...] 05/09/25 08:00 IMPRESSION: Anatomic alignment [facility] Head/Neck CTA 05/10/25 09:35 IMPRESSION: Atherosclerotic calcific plaques at the origin of the right and left internal carotid arteries as described. Red Alert: Nothing acute The critical information above was relayed directly by me by telephone to Sourav Casiano on 05/10/2025 at 9:55 am with readback verification. [facility] Physical Exam Narrative Alert and oriented [...] Cosigner Signature (if applicable): CC: ~ Signed [facility] Work Phone: 1(483) 223-688207-14-2025 Radiology Diagnostic study note [facility] Imaging Services [address] [place], [place] [id number] STROKE Brain/Head without Cont MR#: [id number] Acct: [id number] Name: GOGO WARE Rep #: [id number] : 1940 F 85 From: Jd Martin MD PCP: Dr. Eh Huddleston MD Status: ADM I N Study:STROKE Brain/Head without Cont Date of Exam: 05/10/25 Exam# [id number] Ordering Dr: Sourav Celestin DO PROCEDURE: STROKE [...] CHRONIC CHANGES. NO ACUTE FINDINGS. Reading Location: [place] [address] CC: Dr. Sourav Casiano DO; Dr. Eh Huddleston MD ~ Finisher Brush: Signed [facility]07-14-2025 Progress note [facility] Medical Records Department [address] [place] [address] Progress Note - Orthopedic 05/10/25 1009 MR#: [id number] Acct: [id number] Name: GOGO WARE p #:[id number] : 1940 85 From: Santhosh randolph DO PCP: Dr. Eh Huddleston MD Status:ADM I N Location: [facility] RX941-4 Subjective Subjective Patient seen and examined. Stroke [...] 05/09/25 08:00 IMPRESSION: Anatomic alignment [facility] Head/Neck CTA 05/10/25 09:35 IMPRESSION: Atherosclerotic calcific plaques at the origin of the right and left internal carotid arteries as described. Red Alert: Nothing acute The critical information above was relayed directly by me by telephone to Sourav Casiano on 05/10/2025 at 9:55 am with readback verification. [facility] Physical Exam Narrative Alert and oriented [...] Cosigner Signature (if applicable): CC: ~ Signed [facility]07-14-2025 Radiology Diagnostic study note [facility] Imaging Services [address] [place] [address] STROKE CTA Head AND Neck W/Con MR#: [id number] Acct: [id number] Name: GOGO WARE Rep #: [id number] : 1940 F 85 From: Jd Martin MD PCP: Dr. Eh Huddleston MD Status: ADM I N Study:STROKE CTA Head AND Neck W/Con Date of Exam: 05/10/25 Exam# [id number] Ordering Dr: Sourav Celestin DO PROCEDURE: STROKE CTA HEAD AND NECK [...] RIGHT Vertebral: Unremarkable. LEFT Vertebral: Unremarkable. Anatomy: [place] anatomy is normal. Atherosclerotic calcific [...] 9:55 am with readback verification. Reading Location: [place] [address] CC: Dr. Sourav Casiano DO; Dr. Eh Huddleston MD ~ Finisher Brush: Signed [facility]07-13-2025 Progress note Author Sourav Casiano [facility] Note Date/Time May 09, 2025 4:19 pm [facility] Medical Records Department [address] [place] [address] Progress Note - Hospitalist 05/09/25 1613 MR#: [id number] Acct: [id number] Name: GOGO WAER p #:[id number] : 1940 85 From: Sourav Casiano DO PCP: Dr. Eh Huddleston MD Status:ADM I N Location: [place] [address] Reason for Visit Chief Complaint: Left leg [...] 05/09/25 08:00 IMPRESSION: Anatomic alignment Reading Location: [facility] Physical Exam Narrative alert, oriented x3, no [...] patient may need short-term stay in a [place] facility for rehab services #2 history of [...] team: 35-minute Charges/Coding Visit Charges Inpatient E&M: 50544 Subs Hosp L2 05/09/25 1619 <Electronically signed by Sourav Casiano DO> Cosigner Signature (if applicable): CC: ~ Signed [facility] Work Phone: 1(677) 964-754307-13-2025 Progress note [facility] Medical Records Department [address] [place] [address] Progress Note - Hospitalist 05/09/25 161 MR#: [id number] Acct: [id number] Name: GOGO WARE p #:[id number] : 1940 85 From: Sourav Casiano DO PCP: Dr. Eh Huddleston MD Status:ADM I N Location: [place] [address] Reason for Visit Chief Complaint: Left leg [...] 05/09/25 08:00 IMPRESSION: Anatomic alignment Reading Location: [facility] Physical Exam Narrative alert, oriented x3, no [...] patient may need short-term stay in a [place] facility for rehab services #2 history of [...] team: 35-minute Charges/Coding Visit Charges Inpatient E&M: 86628 Subs Hosp L2 05/09/25 4977 Cosigner Signature (if applicable): CC: ~ Signed [facility]07-13-2025 Consult note Author Jim [facility] Note Date/Time May 09, 2025 10:5 2am [facility] Medical Records Department [address] [place] [address] Anesthesia Postop Eval I 05/09/25 105 MR#: [id number] Acct: [id number] Name: OTTOKEYURGOGO Gordon p #:[id number] : 1940 85 From: Jim Jones MD PCP: Dr. Eh Huddleston MD Status:ADM I N Y Race: C Location: [place] [address] Anesthesia: Postop Eval I Current Vital Signs [...] Anesthesia document: Postop Eval 1 completed: Yes 05/09/251051 <Electronically signed by Jim Jones MD > Date _ Jim Jones MD Cosigner Signature: Date CC: ~ Signed [facility] Work Phone: 1(440) 764-766807-13-2025 Consult note Author Jim [facility] Note Date/Time May 09, 2025 10:5 2am [facility] Medical Records Department [address] [place] [address] Anesthesia Postop Eval II 05/09/25 1052 MR#: [id number] Acct: [id number] Name: GOGO WARE p #:[id number] : 1940 85 From: Jim Jones MD PCP: Dr. Eh Huddleston MD Status:ADM I N Y Race: C Location: [place] [id number] -1 Anesthesia Postop Eval I Sum Postop [...] by Jim Jones MD > Date _ Jmi Jones MD Cosigner Signature: Date CC: ~ Signed [facility] Work Phone: 1([phone]) [phone] Procedure note [facility] Medical Records Department [address] [place] [address] Operative Report 05/09/25 1101 MR#: [id number] Acct: [id number] Name: GOGO WARE p #:[id number] : 1940 85 From: Santhosh randolph DO PCP: Dr. Eh Huddleston MD Status:ADM I N Location: [place] [address] Operative Report (Standard) Operative Information Date of Procedure: 05/09/25 Pre-Operative Diagnosis: Left distal femoral shaft spiral fracture Post-Operative Diagnosis: Left distal femoral shaft spiral fracture Surgery/Procedure Performed: Open reduction internal fixation left femoral shaft hogshead filler: Yes Early Childhood Specialist: Samantha Ordaz Tasks completed by first mate: Opening & closing, Implanting device, Hemostasis: Electrocautery and Retracting Additional triage assistant?: No Type of Anesthesia: General RN Documented Start/Stop Times: Operation Date: 05/09/25 08:20 Case Time Anesthesia Start 05/09/25 07:59 Into Room 05/09/25 07:59 Procedure Start 05/09/25 08:32 Procedure End 05/09/25 10:42 Anesthesia End 05/09/25 10:47 Out of Room 05/09/25 10:47 Into Recovery 05/09/25 10:50 Procedure Start Time: 08:32 Procedure Stop Time: 10:42 Select all DRAINS/GRAFTS/IMPLANTS that apply: Implanted device Implanted device details: [place] Brian Pro 4.5 mm distal femur plate [...] Fracture was irrigated. I then had my triage assistant pull traction on the leg while [...] locking barbed #1 strata fix suture. Interrupted [id number] 0 Vicryl suture was used to reapproximate [...] changes as needed for saturation. Follow-up at [facility] in 2 weeks for x-rays, staple removal and woundassessment. Plan of care discussed with attending hospitalist. Surgical Findings: Long spiral distal third femoral shaft fracture. Stable following fixation. Complications Complications: No Admit VTE Documentation VTE Present on Admission: Yes VTE Pharm Prophylaxis ordered?: Yes 05/09/25 111 Cosigner Signature (if applicable): CC: Dr. Santhosh Livingston DO; Dr. Eh Huddleston MD~ Signed [facility]07-13-2025 Consult note [facility] Medical Records Department [address] [place] [address] Anesthesia Postop Eval I 05/09/25 105 MR#: [id number] Acct: [id number] Name: GOGO WARE p #:[id number] : 1940 85 From: Jim Jones MD PCP: Dr. Eh Huddleston MD Status:ADM I N Y Race: C Location: [place] [address] Anesthesia: Postop Eval I Current Vital Signs [...] Yes 05/09/25 1052 > Date _ Jim Weeman MD Cosigner Signature: Date CC: ~ Signed [facility]07-13-2025 Consult note [facility] Medical Records Department [address] [place] [address] Anesthesia Postop Eval II 05/09/25 1052 MR#: [id number] Acct: [id number] Name: GOGO WARE p #:[id number] : 1940 85 From: Jim Jones MD PCP: Dr. Eh Huddleston MD Status:ADM I N Y Race: C Location: [place] [address] -1 Anesthesia Postop Eval I Sum Postop [...] 1052 > Date _ Jim Jones MD Cosign Signature: Date CC: ~ Signed [facility]07-13-2025 Radiology Diagnostic study note [facility] Imaging Services [address] [place] [address] Femur Min 2 Views MR#: [id number] Acct: [id number] Name: GOGO WARE Rep #: [id number] : 1940 F 85 From: Paola Hammonds MD PCP: Dr. Eh Huddleston MD Status: ADM I N Study:Femur Min 2 Views Date of Exam: Exam# [id number] Ordering Dr: Santhosh Livingston DO PROCEDURE: FEMUR MIN 2 VIEWS 05/09/2025 REASON FOR EXAM: ORIF DISTAL FEMUR TECHNIQUE: FEMUR MIN 2 VIEWS FINDINGS: 8 intraoperative images demonstrate fluoroscopic assistance provided in the operating room for internal fixation of the femur with side plate and multiple screws RAD/Femur Min 2 Views IMPRESSION: Anatomic alignment Reading Location: [facility] CC: Dr. Santhosh Livingston DO; Dr. Eh Huddleston MD ~ Finisher Brush: Signed [facility]07-13-2025 Consult note Author Jim Jones [facility] Note Date/Time May 09, 2025 7:41 am [facility] Medical Records Department [address] [place] [address] Pre-Anesthesia Evaluation 05/09/25 0740 MR#: [id number] Acct: [id number] Name: GOGO WARE Re p #:[id number] : 1940 85 From: Jim Jones MD PCP: Dr. Eh Huddleston MD Status:ADM I N Y Race: C [facility] -[facility] ASA Classification* ASA Classification ASA Classification: 3 [...] 11/28/17 TSH 1.610 uIU/mL (0.300-4.200) 03/31/25 13:44 06/02/19 COAG PT 15.5 SECONDS (11.7-14.9) H 05/08/25 05:45 04/27 12/22 Pre-Assessment Diagnosis/Proposed Procedure Planned Operative Procedure(s): ORIF Distal femur fracture Anesthesia History Anesthesia History - 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: Anesthesia History - 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 Hx Hospitalization Any Problems With Anesthesia No [...] take am of surgery PONV PONV - 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: PONV - 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 Female HX of Motion Sickness HX of N/V After Surgery Non-Smoker Duration of Surgery greater than 60 minutes Number of Risk Factors PONV Score Height & Weight Height & Weight: Anesthesia: Height & Weight Height 5 ft 5.5 in 05/09/25 06:27 Weight: 75.6 kg 05/09/25 06:27 Body Mass Index (BMI) 27.3 05/09/25 06:27 Respiratory Assessment Respiratory Assessment - 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: Respiratory Tract Infection Hx - 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 Hx Respiratory Tract Infection No 05/08/25 22:56 STOP Sleep Apnea STOP Sleep Apnea - 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: STOP Sleep Apnea - 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 Hx Hypertension No 05/09/25 07:11 Hx Sleep [...] Tobacco Use History Tobacco Use History - 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: Tobacco Use History - 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 Tobacco Use Smoking Status Never smoker 05/07/25 15:30 Hx Tobacco Use No 05/07/25 15:30 Years Smoking Packs Smoked per Day Smoking Cessation Date was within the last 15 years Hx Smoking Cessation Date Hx Smoking Cessation Counseling Hematologic Medial History Hematologic Hx - 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: Hematologic 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 Hx of Blood Transfusion No 05/07/25 15:30 [...] confused, unrespo /Reproduction History /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: /Reproductive Hx- 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 Hx Now No 05/08/25 22:56 Gestational Age [...] mls @ 15 mls/hr 05/07/25 16:06 IV .[id number] PRN Saline Flush Sodium Chloride 250 mls @ 15 mls/hr 05/07/25 16:06 IV .[id number] PRN Additional IVPB Infusion Sodium Chloride 250 mls @ 15 mls/hr 05/08/25 17:50 IV .[id number] PRN Saline Flush Sodium Chloride 250 mls @ 15 mls/hr 05/08/25 17:50 IV .N42P78L PRN Additional IVPB Infusion Latanoprost 1 drp [...] 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 Female HX of Motion Sickness HX of N/V After Surgery Non-Smoker Duration of Surgery greater than 60 minutes Number of Risk Factors PONV Score Height & Weight Height & Weight: Anesthesia: Height & Weight Height 5 ft 5.5 in 05/09/25 06:27 Weight: 75.6 kg 05/09/25 06:27 Body Mass Index (BMI) 27.3 05/09/25 06:27 Respiratory Assessment Respiratory Assessment - 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: Respiratory Tract Infection Hx - 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 Hx Respiratory Tract Infection No 05/08/25 22:56 STOP Sleep Apnea STOP Sleep Apnea - 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: STOP Sleep Apnea - 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 Hx Hypertension No 05/09/25 07:11 Hx Sleep [...] Tobacco Use History Tobacco Use History - 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: Tobacco Use History - 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 Tobacco Use Smoking Status Never smoker 05/07/25 15:30 Hx Tobacco Use No 05/07/25 15:30 Years Smoking Packs Smoked per Day Smoking Cessation Date was within the last 15 years Hx Smoking Cessation Date Hx Smoking Cessation Counseling Hematologic Medial History Hematologic Hx - 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: Hematologic 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 Hx of Blood Transfusion No 05/07/25 15:30 [...] confused, unrespo /Reproduction History /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: /Reproductive Hx- 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 05/09/25740 > Date _ Jim Wesley Signature: Date CC: ~ Signed [facility]07-12-2025 Progress note Author Sourav Casiano [facility] Note Date/Time May 08, 2025 6:47 pm [facility] Medical Records Department [address] [place] [address] Progress Note - Hospitalist 05/08/25 1845 MR#: [id number] Acct: [id number] Name: GOGO WARE p #:[id number] : 1940 85 From: Sourav Casiano DO PCP: Dr. Eh Huddleston MD Status:ADM I N Location: [place] [address]-1 Reason for Visit Reason for Visit: Diagnoses [...] (Auto) 73.9 H, Lymph % (Auto) 15.4 L,Iron % (Auto) 10.2 H, Eos % (Auto) [...] team: 35-minute Charges/Coding Visit Charges Inpatient E&M: 50334 Subs Hosp L2 05/08/251846 <Electronically signed by Sourav Casiano DO> Cosigner Signature (if applicable): CC: ~ Signed [facility] Work Phone: 1(255) 878-749607-12-2025 Progress note [facility] Medical Records Department [address] [place] [address] Progress Note - Hospitalist 05/08/251844 MR#: [id number] Acct: [id number] Name: GOGO WARE Heidi p #:[id number] : 1940 85 From: Sourav Casiano DO PCP: Dr. Eh Huddleston MD Status:ADM I N Location: [place] [address] Reason for Visit Reason for Visit: Diagnoses [...] (Auto) 73.9 H, Lymph % (Auto) 15.4 L,Iron % (Auto) 10.2 H, Eos % (Auto) [...] team: 35-minute Charges/Coding Visit Charges Inpatient E&M: 39808 Subs Hosp L2 05/08/25 4937 Cosigner Signature (if applicable): CC: ~ Signed [facility]07-11-2025 Consult note Author Santhosh Livingston [facility] Note Date/Time May 07, 2025 5:04 pm [facility] Medical Records Department [address] [place] [address] Consultation - Orthopedics 05/07/25 1650 MR#: [id number] Acct: [id number] Name: GOGO WARE p #:[id number] : 1940 85 From: Santhosh randolph DO PCP: Dr. Eh Huddleston MD Status:ADM I N Location: [facility] PB171-2 HPI Consult Data Date of Consult: 05/07/25 HPI Narrative Reason for Consultation: Left femur fracture HPI Narrative: GOGO WARE, is a 85 F who presented to [facility] this morning after mechanical fall from standing [...] pain or shortness of breath. [facility] Medical History Laceration of leg Closed head injury Abrasions of multiple sites Laceration of lip Pure hypercholesterolemia Nonrheumatic aortic (valve) stenosis Non-ST elevation (NSTEMI) myocardial infarction Old myocardial infarction Atherosclerotic heart disease of nikolai coronary artery without angina pectoris Essential hypertension [...] (Auto) 79.6 H, Lymph % (Auto) 13.4 L,Iron % (Auto) 4.8, Eos % (Auto) 1.4, [...] the visualized lower lumbar spine are seen. Guoi-ea-kdbvezev degenerative changes of the visualized portions of the left knee. Reading Location: [address] Femur X-Ray 05/07/25 07:24 IMPRESSION: A [...] the visualized lower lumbar spine are seen. Ixrv-lb-wntyeyie degenerative changes of the visualized portions of the left knee. Reading Location: [address] Assessment & Plan Assessment/Plan (1) Femoral [...] Ancef on-call to the OR. 05/07/25 1704 <Electronically signed by Santhosh Livingston DO> Cosigner Signature (if applicable): CC: Dr. Eh Huddleston MD~ Signed [facility] Work Phone: 1(774) 957-745807-11-2025 History and physical note Author Sourav Casiano [facility] Note Date/Time May 07, 2025 4:41 pm [facility] Medical Records Department [address] [place] [address] H&P Exam - Hospitalist 05/07/25 1634 MR#: [id number] Acct: [id number] Name: GOGO WARE p #:[id number] : 1940 85 From: Sourav Casiano DO PCP: Dr. Eh Huddleston MD Status:ADM I N Location: [place] [address]53-1 HPI - General General Date of Admission: 05/07/25 Date of Service: 05/07/25 Chief Complaint: Left leg injury, inability to ambulate HPI Narrative GOGO WARE, is a 85 F who presents to the emergency room at [facility] after sustaining a mechanical fall at home, [...] the patient wanted to be transferred to [facility] if possible due to the fact her ward helper was from the main campus but there was not a bed available and she ultimately decided to stay here and have it repaired here. Patient CBC is unremarkable, chemistry profile was unremarkable also. Patient will be admitted to [place] [address], she will be seen by orthopedic surgery most likely undergo ORIF of the left distal femur fracture. [facility] Medical History Laceration of leg Closed head injury Abrasions of multiple sites Laceration of lip Pure hypercholesterolemia Nonrheumatic aortic (valve) stenosis Non-ST elevation (NSTEMI) myocardial infarction Old myocardial infarction Atherosclerotic heart disease of nikolai coronary artery without angina pectoris Essential hypertension [...] (Auto) 79.6 H, Lymph % (Auto) 13.4 L,Iron % (Auto) 4.8, Eos % (Auto) 1.4, [...] the visualized lower lumbar spine are seen. Cmxl-th-oqwohodq degenerative changes of the visualized portions of the left knee. Reading Location: [address] Femur X-Ray 05/07/25 07:24 IMPRESSION: A [...] the visualized lower lumbar spine are seen. Dead-go-udzpmopm degenerative changes of the visualized portions of the left knee. Reading Location: [address] Assessment & Plan Assessment/Plan (1) Femoral [...] team: 55-minute Charges/Coding Visit Charges Inpatient E&M: 72906 Init Hosp L2 05/07/25 1641 <Electronically signed by Sourav Casiano DO> Cosigner Signature (if applicable): CC: Dr. Sourav Casiano DO; Dr. Eh Hudldeston MD~ Signed [facility] Work Phone: 1(940) 462-524707-11-2025 Discharge summary Author José Manuel Guzman [facility] Note Date/Time May 07, 2025 4:01 pm [facility] [facility] Medical Records Department [address] [place] [address] Emergency Department Summary 05/07/25 MR#: [id number] Acct: [id number] Name: GOGO WARE p #:[id number] : 1940 85 From: José Manuel marie DO PCP: Dr. Eh Huddleston MD Status:ADM I N Location: [place] [address] HPI HPI - Fall History of Present [...] 15 Psych: Cooperative, appropriate mood and affect [facility] Medical History Laceration of leg Closed head injury Abrasions of multiple sites Laceration of lip Pure hypercholesterolemia Nonrheumatic aortic (valve) stenosis Non-ST elevation (NSTEMI) myocardial infarction Old myocardial infarction Atherosclerotic heart disease of nikolai coronary artery without angina pectoris Essential hypertension [...] replacement that was done in 1999 at [facility]. Her left hip replacement was done at [facility] by Dr. Nunez in 2026. She no longer follows an orthopedic surgeon. Patient is on Eliquis however she denies any her head. No LOC. Therefore CT head and neckwill not be ordered. X-ray of the pelvis and femur were personally reviewed andinterpreted by me, ED physician. Patient has a distal left femoral spiral fracture that is partially overriding. Radiology in a [place] agreement. She hasbilateral hip prosthesis without injury [...] however patient wants to be transferred to [facility] as her ward helper is there. I did speak with Dr. Casiano about the patient. He accepted admission however we will wait for possible transfer. was updated as well. Will reach out to [facility] orthopedicteam. I was informed by our hr receptionist that if patient transfers to [facility] she will likely have to pay for the ambulance zco-tw-qejaot given that it is a patient request. [...] are waiting for the orthopedic physician from [facility]. I did receive a call back [...] she would like me to try another [facility] facility such as [facility]. She is okay with being admitted here at [facility] for the surgery. Our hospitalist service [...] 79.6 H Lymph % (Auto) 13.4 L Iron % (Auto) 4.8 Eos % (Auto) 1.4 [...] the visualized lower lumbar spine are seen. Fsoc-tr-zanytnkk degenerative changes of the visualized portions of the left knee. Reading Location: [address] Femur X-Ray 05/07/25 07:24 IMPRESSION: A [...] the visualized lower lumbar spine are seen. Xrpv-tz-fdypwdzg degenerative changes of the visualized portions of the left knee. Reading Location: [address] Discharge Plan Disposition Disposition: Acute Care Hospital [facility] Discharge Date/Time: 05/07/25 15:10 What to do if you have Problems For any increased pain, shortness of breath, bleeding, nausea or vomiting, chestpain, or any unexpected problems, contact your Primary Care Provider. Call [facility] ([phone]) or report to the closest Emergency Room. Call 911 if necessary. 05/07/25 1601 <Electronically signed by José Manuel Guzman DO> Cosigner Signature (if applicable): CC: Dr. Eh Huddleston MD ~ Signed [facility] Work Phone: 1(581) 814-515007-11-2025 Consult note [facility] Medical Records Department [address] [place] [address] Consultation - Orthopedics 05/07/25 1658 MR#: [id number] Acct: [id number] Name: GOGO WARE Heidi p #:[id number] : 1940 85 From: Santhosh randolph DO PCP: Dr. Eh Huddleston MD Status:ADM I N Location: [place] [address] HPI Consult Data Date of Consult: 05/07/25 HPI Narrative Reason for Consultation: Left femur fracture HPI Narrative: GOGO WARE, is a 85 F who presented to [facility] this morning after mechanical fall from standing [...] pain or shortness of breath. [facility] Medical History Laceration of leg Closed head injury Abrasions of multiple sites Laceration of lip Pure hypercholesterolemia Nonrheumatic aortic (valve) stenosis Non-ST elevation (NSTEMI) myocardial infarction Old myocardial infarction Atherosclerotic heart disease of nikolai coronary artery without angina pectoris Essential hypertension [...] (Auto) 79.6 H, Lymph % (Auto) 13.4 L,Iron % (Auto) 4.8, Eos % (Auto) 1.4, [...] the visualized lower lumbar spine are seen. Dzsj-md-rbhnpsbj degenerative changes of the visualized portions of the left knee. Reading Location: [id number] Femur X-Ray 05/07/25 07:24 IMPRESSION: A spiral [...] the visualized lower lumbar spine are seen. Ussn-ut-mlyjuipu degenerative changes of the visualized portions of the left knee. Reading Location: [address] Assessment & Plan Assessment/Plan (1) Femoral [...] applicable): CC: Dr. Eh Huddleston MD~ Signed [facility]07-11-2025 History and physical note [facility] Medical Records Department [address] [place] [address] H&P Exam - Hospitalist 05/07/25 1634 MR#: [id number] Acct: [id number] Name: GOGO WARE p #:[id number] : 1940 85 From: Sourav Casiano DO PCP: Dr. Eh Huddleston MD Status:ADM I N Location: [facility] EB172-2 HPI - General General Date of Admission: 05/07/25 Date of Service: 05/07/25 Chief Complaint: Left leg injury, inability to ambulate HPI Narrative GOGO KRETZSCHMAR, is a 85 F who presents to the emergency room at [facility] after sustaining a mechanical fall at home, [...] the patient wanted to be transferred to [facility] if possible due to the fact her ward helper was from the main campus but there was not a bed available and she ultimately decided to stay here and haveit repaired here. Patient CBC is unremarkable, chemistry profile was unremarkable also. Patient will be admitted to [place] [address], she will be seen by orthopedic surgery most likely undergo ORIF of the left distal femur fracture. [facility] Medical History Laceration of leg Closed head injury Abrasions of multiple sites Laceration of lip Pure hypercholesterolemia Nonrheumatic aortic (valve) stenosis Non-ST elevation (NSTEMI) myocardial infarction Old myocardial infarction Atherosclerotic heart disease of nikolai coronary artery without angina pectoris Essential hypertension [...] (Auto) 79.6 H, Lymph % (Auto) 13.4 L,Iron % (Auto) 4.8, Eos % (Auto) 1.4, [...] the visualized lower lumbar spine are seen. Bsqh-xs-dalxygwd degenerative changes of the visualized portions of the left knee. Reading Location: [address] Femur X-Ray 05/07/25 07:24 IMPRESSION: A [...] the visualized lower lumbar spine are seen. Slvz-nw-hhgbvsce degenerative changes of the visualized portions of the left knee. Reading Location: [address] Assessment & Plan Assessment/Plan (1) Femoral [...] team: 55-minute Charges/Coding Visit Charges Inpatient E&M: 37897 Init Hosp L2 05/07/25 1641 Cosigner Signature (if applicable): CC: Dr. Sourav Casiano DO; Dr. Eh Huddlestno MD~ Signed [facility]07-11-2025 Discharge summary [facility] Medical Records Department [address] [place] [address] Emergency Department Summary 05/07/25 MR#: [id number] Acct: [id number] Name: GOGO WARE p #:[id number] : 1940 85 From: José Manuel marie DO PCP: Dr. Eh Huddleston MD Status:ADM I N Location: [place] [id number] HPI HPI - Fall History of Present [...] 15 Psych: Cooperative, appropriate mood and affect [facility] Medical History Laceration of leg Closed head injury Abrasions of multiple sites Laceration of lip Pure hypercholesterolemia Nonrheumatic aortic (valve) stenosis Non-ST elevation (NSTEMI) myocardial infarction Old myocardial infarction Atherosclerotic heart disease of nikolai coronary artery without angina pectoris Essential hypertension [...] replacement that was done in 1999 at [facility]. Her left hip replacement was done at [facility] by Dr. Nunez in 2026. She no longer follows an orthopedic surgeon. Patient is on Eliquis however she denies any her head. No LOC. Therefore CT head and neckwill not be ordered. X-ray of the pelvis and femur were personally reviewed andinterpreted by me, ED physician. Patient has adistal left femoral spiral fracture that is partially overriding. Radiology in a [place] agreement. She hasbilateral hip prosthesis without injury [...] however patient wants to be transferred to [facility] as her ward helper is there. I did speak with Dr. Casiano about the patient. He accepted admission however we will wait for possible transfer. was updated as well. Will reach out to [facility] orthopedicteam. I was informed by our hr receptionist that if patient transfers to [facility] she will likely have to pay for theambulance exp-kp-mvksit given that it is a patient request. [...] waiting for the orthopedic physi evan from [facility]. I did receive a call back [...] she would like me to try another [facility] facility such as [facility]. She is okay with being admitted here at [facility] for the surgery. Our hospitalist service [...] 79.6 H Lymph % (Auto) 13.4 L Iron % (Auto) 4.8 Eos % (Auto) 1.4 [...] the visualized lower lumbar spine are seen. Sivu-ww-jmpusfbi degenerative changes of the visualized portions of the left knee. Reading Location: [address] Femur X-Ray 05/07/25 07:24 IMPRESSION: A [...] the visualized lower lumbar spine are seen. Sgnx-ul-uqgmpeqi degenerative changes of the visualized portions of the left knee. Reading Location: [address] Discharge Plan Disposition Disposition: Acute Care Hospital [facility] Discharge Date/Time: 05/07/25 15:10 What to do if you have Problems For any increased pain, shortness of breath, bleeding, nausea or vomiting, chestpain, or any unexpected problems, contact your Primary Care Provider. Call [facility] ([phone]) or report tothe closest Emergency Room. Call 911 if necessary. 05/07/25 1601 Cosigner Signature (if applicable): CC: Dr. Eh Huddleston MD ~ Signed [facility]07-11-2025 Evaluation note* Diagnosis Onset Date Resolution Status Admit Date Femoral distal fracture acute J raji 2024 1:32pm [facility] Work Phone: 1(417) 277-167907-11-2025 Evaluation note* Diagnosis Onset Date Resolution Status Admit Date Femoral distal fracture inactive J raji 2024 1:32pm Coronary artery disease acute J raji 2024 2:44pm Debility acute May 14 2:44pm DVT (deep venous thrombosis) acute May 14, 2025 2:44pm Essential (primary) hypertension acu te May 14, 2025 2:44pm Glaucoma acute May 14 2:44pm Hyperlipidemia acute May 14, 2025 2:44pm Insomnia acute May 14 2:44pm Stroke acute May 14 2:44pm Femoral distal fracture inactive [facility]2024 2:44pm [facility] Work Phone: 1(851) 632-347607-11-2025 Evaluation note* Diagnosis Onset Date Resolution Status Admit Date Femoral distal fracture inactive [facility]2024 1:32pm Coronary artery disease acute 2024 2:44pm Debility acute May 14 2:44pm DVT (deep venous thrombosis) acute May 14, 2025 2:44pm Essential (primary) hypertension acu te May 14, 2025 2:44pm Glaucoma acute May 14 2:44pm Hyperlipidemia acute May 14, 2025 2:44pm Insomnia acute May 14 2:44pm Stroke acute May 14 2:44pm Urinary retention acute May 142024 2:44pm Urinary tract infection acute 2024 2:44pm Femoral distal fracture inactive 2024 2:44pm [facility] Work Phone: 1(537) 178-467407-11-2025 Evaluation note* Diagnosis Onset Date Resolution Status Admit Date Femoral distal fracture inactive 2024 1:32pm Coronary artery disease acute 2024 2:44pm Debility acute May 14 2:44pm DVT (deep venous thrombosis) acute May 14, 2025 2:44pm Essential (primary) hypertension acu te May 14, 2025 2:44pm Glaucoma acute May 14 2:44pm Hyperlipidemia acute May 14, 2025 2:44pm Insomnia acute May 14 2:44pm Stroke acute May 14 2:44pm Urinary retention acute May 142024 2:44pm Urinary tract infection resolved 2024 2:44pm Femoral distal fracture inactive Ghulam olivaresy 2024 2:44pm [facility] Work Phone: [phone]) [phone] Radiology Diagnostic study note [facility] Imaging Services [address] [place] [id number] Femur Min 2 Views MR#: [id number] Acct: [id number] Name: GOGO WARE Rep #: [id number] : 1940 F 85 From: Matt Bryant MD PCP: Dr. Eh Huddleston MD Status: PRE E R Study:Femur Min 2 Views Date of Exam: Exam# [id number] Ordering Dr: José Manuel Jean DO PROCEDURE: [...] the visualized lower lumbar spine are seen. Wxaf-gy-odhdncka degenerative changes of the visualized portions of the left knee. Reading Location: [address] CC: Dr. José Manuel Guzman DO; Dr. Eh Huddleston MD ~ Finisher Brush: Signed [facility]07-11-2025 Radiology Diagnostic study note [facility] Imaging Services [address] [place] [id number] Pelvis 1 or 2 Views MR#: [id number] Acct: [id number] Name: GOGO WARE Rep #: [id number] : 1940 F 85 From: Matt Bryant MD PCP: Dr. Eh Huddleston MD Status: PRE E R Study:Pelvis 1 or 2 Views Date of Exam: 05/07/25 Exam# [id number] Ordering Dr: José Manuel Jean DO PROCEDURE: [...] the visualized lower lumbar spine are seen. Nlrz-ij-yjgfuhca degenerative changes of the visualized portions of the left knee. Reading Location: [address] CC: Dr. José Manuel Guzman DO; Dr. Eh Huddleston MD ~ Finisher Brush: Signed [facility]05-30-2025 Telephone encounter Note* Telephone Encounter - Raven Zazueta - 03/26/2025 10:51 AM EDT Call from pharmacy requesting refill. Requested Prescriptions Pending Prescriptions Disp Refills apixaban (ELIQUIS) 5 mg tab(s) 60 tablet 2 Sig: Take 1 tablet by mouth two times a day. Patient last seen 08/31/24 Raven Zazueta [facility]05-30-2025 Miscellaneous Notes* Telephone Encounter - Raven Zazueta - 03/26/2025 10:51 AM EDT Call from pharmacy requesting refill. Requested Prescriptions Pending Prescriptions Disp Refills apixaban (ELIQUIS) 5 mg tab(s) 60 tablet 2 Sig: Take 1 tablet by mouth two times a day. Patient last seen 08/31/24 Raven Zazueta documented in this encounterK[facility] Telephone encounter Note * Telephone Encounter - Deng Smith APRN.CNP - 03/11/2025 12:21 PM EDT Completed request reportedly approved [facility] Work Phone: [phone] Miscellaneous Notes* Telephone Encounter - Deng Smith APRN.CNP - 03/11/2025 12:21 PM EDT Completed request reportedly approved * Telephone Encounter - Lori Santamaria - 03/11/2025 11:16 AM EDT Images from the original note were not included. Received faxed PA request from pharmacy for Eliquis BIN #[id number] PCN#[id number] ID: [id number] Group: [id number] documented in this encounterKet[facility]05-15-2025 Telephone encounter Note * Telephone Encounter - Lori Santamaria - 03/11/2025 11:16 AM EDT Images from the original note were not included. Received faxed PA request from pharmacy for Eliquis BIN #[id number] N#[id number] ID: [id number] Group: [id number] [facility]05-09-2025 Telephone encounter Note* Telephone Encounter - Lucy Mccall APRN.CNP - 03/05/2025 2:36 PM EDT Spoke with patient's friend, Marni. 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 She is going to assist her in applying for a copay card. If she doesn't qualify, we discussed the possibility of switching to Coumadin. They will reach out to the office if a switch is needed. Lucy Mccall APRN.CNP [facility] Work Phone: 1(918) 719-284505-09-2025 Miscellaneous Notes* Telephone Encounter - Lucy Mccall APRN.CNP - 03/05/2025 2:36 PM EDT Spoke with patient's friend, Marni. 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 She is going to assist her in applying for a copay card. If she doesn't qualify, we discussed the possibility of switching to Coumadin. They will reach out to the office if a switch is needed. Lucy Mccall APRN.CNP documented in this encounterK[facility]-08-2025 Telephone encounter Note * Telephone Encounter - [...] up in 1 year. Lucy Mccall APRN.CNP [facility]05-08-2025 Miscellaneous Notes* Telephone Encounter - Lucy Mccall [...] year. Lucy Mccall APRN.CNP documented in this encounterKet[facility]-06-2025 Instructions* Patient Instructions* Lucy Mccall APRN.CNP - [...] 911. Lucy Mccall APRN.CNP documented in this encounterKet[facility]05-06-2025 History of Present illness Narrative* Lucy Mccall APRN.CNP - 03/02/2025 1:00 PM EDT Images from the original note were not included. [facility] [place] Pam López Department of Cardiovascular Medicine SECTION OF INTERVENTIONAL CARDIOLOGY OUTPATIENT VISIT DATE March 01, 2025 OUTPATIENT VISIT TYPE ESTABLISHED FOLLOW UP Primary State Trooper: Dr. Wells Chief Complaint: Patient here for cardiac follow up evaluation History of Present Illness: Patient is a 84 year old female who presents for follow up visit today. 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 Wells [...] 23mm Newell Jerry S3 andStenting of the R-HEEL WASHER STRINGING MACHINE OPERATOR with a 8.0 x 39 mm [place] VBX Balloon expandable stent by Dr. Wells. [...] in the left eye daily at bedtime. pzfthab-qkakgqyjy-pbfjlyvo,PF (CAM-YNWH-HEF) 0.5-0.15-2 % ophthalmic solution Use 1 Drop [...] 4lbs from your dry weight, call your ward helper Exercise: Be active and exercise every day. Smoking and alcohol abstinence/cessation, if applicable Heart Failure Education Booklet: information given previously. Please Visit [email or web address] Questions or Concerns after you go home? Please call Nurse ground crew lines person line at . I spent a total of 40 minutes on the date of the service which included preparing to see the patient, xlmd-uq-ktpn patient care, completing clinical documentation, obtaining and/or reviewing separately obtained history, performing a medically appropriate examination, and ordering medications, tests, or procedures. Lucy Mccall APRN.CNP documented in this encounterK[facility]-06-2025 NoteHNO ID: [id number] Author: LUCY MCCALL APRN.CNP Service: ? Author Type: Nurse Practitioner Type: Progress Notes Filed: 03/02/2025 13:41 Note Text: [facility] [place] Pam López Department of Cardiovascular Medicine SECTION OF INTERVENTIONAL CARDIOLOGY OUTPATIENT VISIT DATE March 01, 2025 OUTPATIENT VISIT TYPE ESTABLISHED FOLLOW UP Primary State Trooper: Dr. Wells Chief Complaint: Patient here for cardiac follow up evaluation History of Present Illness: Patient is a 84 year old female who presents for follow up visit today. 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 Wells. [...] in the left eye daily at bedtime. kgkephy-kulagvflt-kozzgdzd,PF (SJO-SKPU-HCA) 0.5-0.15-2 % ophthalmic solution Use 1 Drop [...] for this visit. (more content not included)... [facility]05-06-2025 History of Present illness Narrative* Chyna Meneses [...] PATIENT PRESENTS WITH AN IMPLANTABLE OR ATTACHED FOREIGN EXCHANGE SERVICES MANAGER: No RADIOLOGY DEPARTMENT: CT; Exam(s) Completed: Cardiac PERIPHERAL IV DATA: Site assessment: Clean,Dry and Intact, Site disposition Discontinued SIGNED BY: RT Narcisa(Anh) March 02, 2025 12:32 PM documented in this encounterKettering [facility]05-06-2025 NoteHNO ID: [id number] Author: DANIELLE BUENO RT(R) Service: Radiology Author [...] PATIENT PRESENTS WITH AN IMPLANTABLE OR ATTACHED FOREIGN EXCHANGE SERVICES MANAGER: No RADIOLOGY DEPARTMENT: CT; Exam(s) Completed: Cardiac PERIPHERAL IV DATA: Site assessment: Clean,Dry and Intact, Site disposition Discontinued SIGNED BY: RT Narcisa(Anh) March 02, 2025 12:32 [facility]05-06-2025 NoteHNO ID: [id number] Author: CHYNA MENESES RN Service: Nursing Author [...] Ware DATE: March 02, 2025 TIME: 12:16 [facility]05-05-2025 Telephone encounter Note* Telephone Encounter - Raven Zazueta - 03/01/2025 9:25 AM EDT Called patient back and told her fasting was not necessary [facility]05-05-2025 Miscellaneous Notes* Telephone Encounter - Raven Zazueta - 03/01/2025 9:25 AM EDT Called patient back and told her fasting was not necessary documented in this encounterKettering [facility]05-05-2025 Telephone encounter Note * Telephone Encounter - Raven Zazueta - 03/01/2025 9:15 AM EDT Althea had questions about the three different labs she is having done tomorrow morning. Patient wanted to clarify that the tests were not duplicates. Patient also asked if she had to fast before labs. I instructed the patient to fast for 12 hours prior to labs. [facility]05-05-2025 Miscellaneous Notes* Telephone Encounter - Sanju Raven - 03/01/2025 9:15 AM EDT Althea had questions about the three different labs she is having done tomorrow morning. Patient wanted to clarify that the tests were not duplicates. Patient also asked if she had to fast before labs. I instructed the patient to fast for 12 hours prior to labs. documented in this encounterKet[facility]03-14-2025 Telephone encounter Note * Telephone Encounter - Lita Lora - 01/08/2025 2:34 PM EDT Images from the original note were not included. Notes and reports sent to [facility] cardiac rehab, along with order [facility]03-14-2025 Miscellaneous Notes* Telephone Encounter - Lita Lora - 01/08/2025 2:34 PM EDT Images from the original note were not included. Notes and reports sent to [facility] cardiac rehab, along with order documented in this encounterKettering [facility]03-12-2025 NoteHNO ID: [id number] Author: ?, ?, ? Service: ? Author Type: ? Type: Progress Notes Filed: 01/06/2025 09:43 Note Text: Summary: KCCQ-12 AMB TVT FOLLOWUP: Follow Up Type: Phone Call Call Attempt: 1st Attempt Call Status: Questionnaire Answered [place] Cardiomyopathy Questionnaire (KCCQ-12) 1. 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 Visiting family or friends out of your home: 5 - Did not limit at all [facility]03-12-2025 History of Present illness Narrative* Jenelle Donohue C - 01/06/2025 9:31 AM EDTSummary: KCCQ-12 AMB TVT FOLLOWUP: Follow Up Type: Phone Call Call Attempt: 1st Attempt Call Status: Questionnaire Answered [place] Cardiomyopathy Questionnaire (KCCQ-12) 1. 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 Visiting family or friends out of your home: 5 - Did not limit at all documented in this encounterKettering Health [facility]03-12-2025 NotePatient Outreach (CIUMN) GOGO WARE ([id number]) 1940 F Date Time Provider Department 01/06/25 JENELLE DONOHUE During your visit today, we recorded the following information about you: Jenelle Donohue 01/06/2025 9:43 AM Signed AMB TVT FOLLOWUP: Follow Up Type: Phone Call Call Attempt: 1st Attempt Call Status: Questionnaire Answered [place] Cardiomyopathy Questionnaire (KCCQ-12) 1. 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 - iuredjr-nuqaydakx-yrwfxxzk,PF (MTT-DOWK-CBK) 0.5-0.15-2 % ophthalmic solution Use 1 Drop [...] hypertension [I10] 09/09/2017 Coronary artery disease involving nikolai guo*04/07/2024 Insomnia [G47.00] 04/07/2024 Glaucoma [H40.9] 04/07/2024 Nonrheumatic aortic valve stenosis [I35.0] 04/07/2024 Acute on chronic diastolic congestive heart kayley*10/29/2024 Severe aortic stenosis [I35.0] 10/30/2024 S/P TAVR (transcatheter aortic valve replacemen*10/30/2024 Encounter Status:Closed by JENELLE DONOHUE on 01/06/25[facility] 12-24-2024 Telephone encounter Note* Telephone Encounter - Lucy Mccall APRN.CNP - 12/24/2024 2:10 PM EST Sent to scheduling. Lucy Mccall APRN.CNP [facility] Work Phone: [phone] 924-411002-27-2025 Miscellaneous Notes* Telephone Encounter - Lucy Mccall APRN.CNP - 12/24/2024 2:10 PM EST Sent to scheduling. Lucy Mccall APRN.CNP * Telephone Encounter - Chuckie Wells RN - 12/24/2024 1:03 PM EST [facility] Phone Encounter DATE of SERVICE: 12/24/2024 TIME of SERVICE: 1:03 PM Status: Non-urgent, needs attention Service/Provider: Odilon Clifton MD Reason for call: Follow-up Appointment Contact information: [phone] Resolution: Sent to inTempolib Comments: Pt family member is trying to [...] up appointment with Interventional Cariology [facility] directly afterwards---[phone] With cardiology as scheduled/requested- sooner if needed. Will need Arterial Doppler and PVR at 3 mo Chuckie Wells RN Date of Resolution: 12/24/2024 Time of Resolution 1:03 PM documented in this encounterK[facility]02-27-2025 Telephone encounter Note * Telephone Encounter - Chuckie Wells RN - 12/24/2024 1:03 PM EST [facility] Phone Encounter DATE of SERVICE: 12/24/2024 TIME of SERVICE: 1:03 PM Status: Non-urgent, needs attention Service/Provider: Odilon Clifton MD Reason for call: Follow-up Appointment Contact information: [phone] Resolution: Sent to Medxnote Comments: Pt family member is trying to [...] up appointment with Interventional Cariology [facility] directly afterwards---[phone] With cardiology as scheduled/requested- sooner if needed. Will need Arterial Doppler and PVR at 3 mo Chuckie Wells RN Date of Resolution: 12/24/2024 Time of Resolution 1:03 PM [facility]02-26-2025 Instructions* Patient Instructions* Deng Smith APRN.CNP - 12/23/2024 2:14 PM EST Aggressive risk [...] up appointment with Interventional Cariology [facility] directly afterwards---[phone] With cardiology as scheduled/requested- sooner if needed. [...] 4lbs from your dry weight, call your ward helper Exercise: Be active and exercise every day. Smoking and alcohol abstinence/cessation, if applicable Heart Failure Education Booklet: information given previously. Please Visit [email or web address] Questions or Concerns after you go home? Please call Nurse ground crew lines person line at . documented in this encounterKet[facility]02-26-2025 History of Present illness Narrative* Deng Smith APRN.CNP - 12/23/2024 1:30 PM EST Images from the original note were not included. [facility] [place] [facility] Department of Cardiovascular Medicine SECTION OF INTERVENTIONAL CARDIOLOGY OUTPATIENT VISIT DATE December 23, 2024 OUTPATIENT VISIT TYPE ESTABLISHED FOLLOW UP Primary State Trooper: Russell Donald MD Chief Complaint: Patient here [...] TAVR 23 S3 and Stenting of the R-HEEL WASHER STRINGING MACHINE OPERATOR with a 8.0 x 39 mm [place] VBX Balloon expandable stent, RLE Arterial Doppler and PVR completed, right HEEL WASHER STRINGING MACHINE OPERATOR stent patent HFpEF (EF 64%) HTN HLD [...] mo,6 mo and 12 months after procedure. [id number] mg daily DAPT plavix 75 mg daily [...] up appointment with Interventional Cariology [facility] directly afterwards---[phone] With cardiology as scheduled/requested- sooner if needed. [...] 4lbs from your dry weight, call your ward helper Exercise: Be active and exercise every day. Smoking and alcohol abstinence/cessation, if applicable Heart Failure Education Booklet: information given previously. Please Visit [email or web address] Questions or Concerns after you go home? Please call Nurse ground crew lines person line at . I spent a total of >40 minutes on the date of the service which included preparing to see the patient, erul-vc-sbzb patient care, completing clinical documentation, obtaining and/or reviewing separately obtained history, performing a medically appropriate examination, counseling and educating the patient/family/caregiver, independently interpreting results (not separately reported), and communicating results to the patient/family/caregiver. Deng Smith APRN.CNP documented in this encounterKettering Health [facility]02-26-2025 NoteHNO ID: [id number] Author: DENG SMITH APRN.CNP Service: ? Author Type: Nurse Practitioner Type: Progress Notes Filed: 12/23/2024 14:15 Note Text: [facility] [place] [facility] Department of Cardiovascular Medicine SECTION OF INTERVENTIONAL CARDIOLOGY OUTPATIENT VISIT DATE December 23, 2024 OUTPATIENT VISIT TYPE ESTABLISHED FOLLOW UP Primary State Trooper: Russell Donald MD Chief Complaint: Patient here [...] TAVR 23 S3 and Stenting of the R-HEEL WASHER STRINGING MACHINE OPERATOR with a 8.0 x 39 mm [place] VBX Balloon expandable stent, RLE Arterial Doppler and PVR completed, right HEEL WASHER STRINGING MACHINE OPERATOR stent patent HFpEF (EF 64%) HTN HLD [...] mo,6 mo and 12 months after procedure. Hfxenee97 mg daily DAPT plavix 75 mg daily [...] up appointment with Interventional Cariology [facility] directly afterwards---[phone] With cardiology as scheduled/requested- sooner if needed. [...] 4lbs from your dry weight, call your ward helper Exercise: Be active and exercise every day. Smoking and alcohol abstinence/cessation, if applicable Heart Failure Education Booklet: information given previously. Please Visit [email or web address] Questions or Concerns after you go home? Please call Nurse ground crew lines person line at . I spent a total of >40 minutes on the date of the service which included preparing to see the patient, sumv-ne-npmx patient care, completing clinical documentation, obtaining and/or reviewing separately obtained history, performing a medically appropriate (more content not included)...[facility]01-14-2025 Instructions* Patient Instructions* Deng Koenig APRN.CNP - 11/10/2024 10:05 AM EST No longer required to have restrictions Start cardiac rehab 3-4 weeks post procedure Continue medications as prescribed Follow-up as scheduled Deng Koenig APRN.CNP documented in this encounterKettering [facility]01-14-2025 History of Present illness Narrative* Deng Koenig APRN.CNP - 11/10/2024 9:45 AM EST Images from the original note were not included. [facility] [place] [facility] Department of Cardiovascular Medicine SECTION OF INTERVENTIONAL CARDIOLOGY OUTPATIENT VISIT DATE November 10, 2024 OUTPATIENT VISIT TYPE ESTABLISHED FOLLOW UP Primary State Trooper: Dr. Lindo Chief Complaint: Patient here for [...] TAVR 23 S3 and Stenting of the R-HEEL WASHER STRINGING MACHINE OPERATOR with a 8.0 x 39 mm [place] VBX Balloon expandable stent, RLE Arterial Doppler and PVR completed, right HEEL WASHER STRINGING MACHINE OPERATOR stent patent HFpEF (EF 64%) HTN HLD Glaucoma (left eye completely blind) Patient underwent TAVR 23 S3 and Stenting of the R-HEEL WASHER STRINGING MACHINE OPERATOR with a 8.0 x 39 mm [place] VBX Balloon expandable stent on 10/30/[address] Wells. RLE Arterial Doppler and PVR completed, right HEEL WASHER STRINGING MACHINE OPERATOR stent patent. Patient presents today for hospital [...] drainage noted. ECG completed and NSR with xjfblgib7uf degree HB. Patient to follow-up next month [...] in the left eye daily at bedtime. xnjhgho-llvfmmefd-lgwzhdqr,PF (VPN-WDZV-DEF) 0.5-0.15-2 % ophthalmic solution Use 1 Drop [...] swelling or drainage noted Groin - right; KAREN no redness or swelling or drainage [...] - Exam was compared with the prior echocardiographic exam performed on 10/30/24. Similar findings. [...] TAVR 23 S3 and Stenting of the R-HEEL WASHER STRINGING MACHINE OPERATOR with a 8.0 x 39 mm [place] VBX Balloon expandable stent, RLE Arterial Doppler and PVR completed, right HEEL WASHER STRINGING MACHINE OPERATOR stent patent HFpEF (EF 64%) HTN HLD Glaucoma (left eye completely blind) Patient underwent TAVR 23 S3 and Stenting of the R-HEEL WASHER STRINGING MACHINE OPERATOR with a 8.0 x 39 mm [place] VBX Balloon expandable stent on 10/30/[address] Wells. RLE Arterial Doppler and PVR completed, right HEEL WASHER STRINGING MACHINE OPERATOR stent patent. Patient presents today for hospital [...] drainage noted. ECG completed and NSR with vnhshnjk4hw degree HB. Patient to follow-up next month [...] mo,6 mo and 12 months after procedure. Blrahge24 mg daily DAPT plavix 75 mg daily [...] 4lbs from your dry weight, call your ward helper Exercise: Be active and exercise every day. Smoking and alcohol abstinence/cessation, if applicable Heart Failure Education Booklet: information given previously. Please Visit [email or web address] Questions or Concerns after you go home? Please call Nurse ground crew lines person line at . I spent a total of >30 minutes on the date of the service which included preparing to see the patient, tpbq-kz-rgyw patient care, completing clinical documentation, performing a medically appropriate examination, counseling and educating the patient/family/caregiver, ordering medications, tests,or procedures, independently interpreting results (not separately reported), and communicating results to the patient/family/caregiver. Deng Koenig APRN.CNP documented in this encounterKet[facility]01-14-2025 NoteHNO ID: [id number] Author: DENG KOENIG APRN.CNP Service: ? Author Type: Nurse Practitioner Type: Progress Notes Filed: 11/10/2024 10:24 Note Text: [facility] [place] [facility] Department of Cardiovascular Medicine SECTION OF INTERVENTIONAL CARDIOLOGY OUTPATIENT VISIT DATE November 10, 2024 OUTPATIENT VISIT TYPE ESTABLISHED FOLLOW UP Primary State Trooper: Dr. Lindo Chief Complaint: Patient here for [...] TAVR 23 S3 and Stenting of the R-HEEL WASHER STRINGING MACHINE OPERATOR with a 8.0 x 39 mm [place] VBX Balloon expandable stent, RLE Arterial Doppler and PVR completed, right HEEL WASHER STRINGING MACHINE OPERATOR stent patent HFpEF (EF 64%) HTN HLD Glaucoma (left eye completely blind) Patient underwent TAVR 23 S3 and Stenting of the R-HEEL WASHER STRINGING MACHINE OPERATOR with a 8.0 x 39 mm [place] VBX Balloon expandable stent on 10/30/[address] Wells. RLE Arterial Doppler and PVR completed, right HEEL WASHER STRINGING MACHINE OPERATOR stent patent. Patient presents today for hospital [...] in the left eye daily at bedtime. aivxsbf-gmnaoajti-nqfxxrhg,PF (AUH-SLDA-ZXQ) 0.5-0.15-2 % ophthalmic solution Use 1 Drop [...] no edema noted Abdom (more content not included)...[facility]01-[facility]25 NoteHNO ID: [id number] Author: CHALINO STOUT ? Service: Pharmacy Author Type: Pick Up Worker Type: Plan of Care Filed: 11/01/2024 11:24 Note Text: PHARMACY BEDSIDE DELIVERY SERVICE Patient Name: Gogo Ware The marked outpatient medications were Filled at: [facility] and delivered to the [...] 30 mg Cap Commonly known as: RESTORIL zbtbjol-oqwdxrzhk-sxylohbe,PF 0.5-0.15-2 % ophthalmic solution Commonly known as: HYY-YVUL-UVB Use 1 Drop in the left eye two times a day. valsartan 160 mg tablet Commonly known as: DIOVAN Take 0.5 tablets by mouth once daily. You might also be taking other medications not listed above. If you have questions about any of your other medications, talk to the person who prescribed them or your Primary Care Provider. Chalino Stout November 01, 2024 9:46 [facility]01-05-2025 NoteHNO ID: [id number] Author: HELEN FORTE MD Service: Cardiovascular Medicine Author Type: Fellow Type: Progress Notes Filed: 11/01/2024 08:50 Note Text: INTERVENTIONAL CARDIOLOGY Post Intervention Progress Note PROCEDURE: Transfemoral TAVR with a 23 mm [place] Jerry S3 valve, stenting of R HEEL WASHER STRINGING MACHINE OPERATOR with 8.0 x 39 mm [place] VBX balloon expandable stent SUBJECTIVE: - No events overnight on telemetry. - No CP or SOB. - No issues with R HEEL WASHER STRINGING MACHINE OPERATOR access sites. - comfortable this AM; eager [...] result) Narrative: Echocardiography Report: Transthoracic Echo Main [place] Bedside Date of service: 10/30/2024 10:18:57 AM [...] 155.0 cm/s. The dimensio (more content not included)...[facility]01-[facility]25 NoteHNO ID: [id number] Author: AZUL ELIZONDO MD Service: Cardiovascular Medicine Author Type: Physician Type: Plan of Care Filed: 10/31/2024 13:56 Note Text: INTERVENTIONAL CARDIOLOGY Post Intervention Progress Note PROCEDURE: Transfemoral TAVR with a 23 mm [place] Jerry S3 valve, stenting of R HEEL WASHER STRINGING MACHINE OPERATOR with 8.0 x 39 mm [place] VBX balloon expandable stent SUBJECTIVE: - No events overnight on telemetry. - No CP or SOB. - No issues with access sites. - Does not have a ride home today -arterial doppler w/o severe stenosis, no pseudoaneurysm. Normal VARSHA in right and left legs Current Inpatient [...] 10/31/2024 1,611 (H) <450 pg/mL Final EKG: MN 202 (Baseline 212), QRS 98 (baseline 92) Echo: Pk/mn 15/09, no AI Last Echocardiogram ECHO Collected: 10/30/2024 10:18 AM (Final result) Narrative: Echocardiography Report: Transthoracic Echo Main [place] Bedside Date of service: 10/30/2024 10:18:57 AM [...] is no thickening. A (more content not included)...[facility]25 NoteHNO ID: [id number] Author: CARLOS LOVE MD Service: Cardiovascular Medicine Author Type: Fellow Type: Plan of Care Filed: 10/30/2024 10:15 Note Text: Plan of care note: Gogo Ware is a 84 year old female [id number] with severe now s/p transfemoral TAVR with a #23 mm Newell Jerry S3 valve Stenting of RCFA with a 8.0 x 39 mm [place] VBX balloon [ deployed at 8 ATMs] expandable stent post dilated the proximal segment with a 8.0 x 40 mm Bright [place] balloon. Access: 6 RRA > TR band, 14Fr superior RFA [...] Report Carlos Love MD PGY 8 Pager: [phone] Interventional Animal Science Instructor [facility] [place] [facility] For communication after 5 pm on weekdays and after 12 pm on weekends, please page the following: - Clinical Cardiology patients on all floors: page [phone] - Other Cardiology patients on J5 and J6: page [phone] - Other Cardiology patients on J7 and J8: page [phone] [facility] Health System 10-29-2024 Instructions* Patient Instructions* Kacy Jimenez, SKIP.SHOT BLAST 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 - 10/29/2024 1:51 PM EST Instructed to [...] into surgery. - No make-up or nail bhutanese. If you have nail tips/wraps/gels, you will need to remove them from atleast one finger on each hand. This lets us keep track of your oxygen level during surgery. - No jewelry, including watches, wedding rings and any body jewelry. Questions about preparing for your procedure? Call your doctors office: Dr. Sly Jesus [phone] Dr. Milagros Lr [phone] Dr. Jim Aguilera [phone] Dr. Odilon Wells [phone] Activity Restrictions post procedure. Do not strain [...] your risk of future heart problems. For [facility] call [phone] to schedule after you are home from your procedure. If you do not receive your referral, please call your ward helper's office for the order. Kacy Jimenez APRN.CNS documented in this encounterKettering Health [facility]01-02-2025 History of Present illness Narrative* Kacy Jimenez APRN.CNS - 10/29/2024 1:00 PM EST Images from the original note were not included. [facility] [place] [facility] Department of Cardiovascular Medicine SECTION OF INTERVENTIONAL CARDIOLOGY OUTPATIENT VISIT DATE October 29, 2024 OUTPATIENT VISIT TYPE ESTABLISHED FOLLOW UP Primary State Trooper: Dr. Lindo Chief Complaint: Patient here for [...] first degree AVB Vent. rate 60 BPM MN interval 212 ms QRS duration 92 ms [...] Abs Lymph 1.00 - 4.00 k/uL 1.45 Iron% % 9.0 Abs Iron <0.87 k/uL 0.44 Eosin% % 2.7 Abs [...] into surgery. - No make-up or nail bhutanese. If you have nail tips/wraps/gels, you will need to remove them from atleast one finger on each hand. This lets us keep track of your oxygen level during surgery. - No jewelry, including watches, wedding rings and any body jewelry. Questions about preparing for your procedure? Call your doctors office: Dr. Sly Jesus [phone] Dr. Milagros Lr [phone] Dr. Jim Aguilera [phone] Dr. Odilon Wells [phone] Activity Restrictions post procedure. Do not strain [...] discharge planning: __[facility] Her friend [...] your risk of future heart problems. For [facility] call [phone] to schedule after you are home from your procedure. If you do not receive your referral, please call your ward helper's office for the order. I spent a total of 40- minutes on the date of the service which included preparing to see the patient, njit-eq-pego patient care, completing clinical documentation, performing a medically appropriateexamination, ordering medications, tests, or procedures, independently interpreting results (not sep arately reported), and communicating results to the patient/family/caregiver. Kacy Jimenez APRN.CNS documented in this encounterKettering Health [facility]01-02-2025 NoteHNO ID: [id number] Author: KACY JIMENEZ APRN.CNS Service: ? Author Type: Nurse Specialist Type: Progress Notes Filed: 10/29/2024 14:10 Note Text: [facility] [place] [facility] Department of Cardiovascular Medicine SECTION OF INTERVENTIONAL CARDIOLOGY OUTPATIENT VISIT DATE October 29, 2024 OUTPATIENT VISIT TYPE ESTABLISHED FOLLOW UP Primary State Trooper: Dr. Lindo Chief Complaint: Patient here for [...] first degree AVB Vent. rate 60 BPM MN interval 212 ms QRS duration 92 ms [...] Abs Lymph 1.00 - 4.00 k/uL 1.45 Iron% % 9.0 Abs Iron <0.87 k/uL 0.44 Eosin% % 2.7 Abs [...] 10/[address] Kamara (more content not included)...[facility]01-[facility]25 NoteHNO ID: [id number] Author: CHARLES GARCIA MD Service: ? Author [...] Essential (Primary) Hypertension Coronary Artery Disease Involving [place] Coronary Artery of [place] Heart With Angina Pectoris (Hcc) Insomnia Glaucoma [...] No acute radiographic a (more content not included)...[facility] 10-29-2024 History of Present illness Narrative* Charles [...] Essential (Primary) Hypertension Coronary Artery Disease Involving [place] Coronary Artery of [place] Heart With Angina Pectoris (Hcc) Insomnia Glaucoma [...] AM Impression IMPRESSION: No acute radiographic abnormality. Finisher Brush: PSCB Transcribe Date/Time: Oct 29 2024 10:42A [...] - Exam was compared with the prior echocardiographic exam performed on 04/15/2024. SImilar findings. [...] and consent discussed: yes. Patient / Responsible Green Party agrees to proceed: yes Patient / Surrogate agrees to blood products: Yes Instructions Given to Patient: Instructions located in the after visit summary. Patient given verbal and written preop instructions and voices comprehension and compliance. Signature: Charles Garcia MD Patient Name: Gogo Ware Date: October 29, 2024 Time: 12:49 PM Pager/Contact #: documented in this encounterKettering Health [facility]01-02-2025 History of Present illness Narrative* Elba Glez, RT(R) - 10/29/2024 11:30 AM EST Radiology [...] PATIENT PRESENTS WITH AN IMPLANTABLE OR ATTACHED FOREIGN EXCHANGE SERVICES MANAGER: No RADIOLOGY DEPARTMENT: General X-ray: Exam(s) Completed: Chest X-Ray PERIPHERAL IV DATA: Not applicable SIGNED BY: RT Rhonda(R) October 29, 2024 9:21 AM documented in this encounterKettering Health [facility]01-02-2025 NoteHNO ID: [id number] Author: ELBA GLEZ RT(R) Service: Radiology Author [...] PATIENT PRESENTS WITH AN IMPLANTABLE OR ATTACHED FOREIGN EXCHANGE SERVICES MANAGER: No RADIOLOGY DEPARTMENT: General X-ray: Exam(s) Completed: Chest X-Ray PERIPHERAL IV DATA: Not applicable SIGNED BY: RT Rhonda(R) October 29, 2024 9:21 [facility]12-11-2024 NoteHNO ID: [id number] Author: LUBA LLANES APRN.ADMINISTRATIVE TECH Service: ? Author Type: Nurse Practitioner Type: Progress Notes Filed: 10/07/2024 16:04 Note Text: I spoke with Gogo Normanjayakeyur on the phone. Will proceed with the [...] hours for Dr. Aguilera): Carvedilol Luba Llanes APRN.ADMINISTRATIVE TECH Hello, Please schedule Gogo Ware, [id number] for COMMERCIAL TF- TAVR S3 vs ROMEL Procedure on: 10/30/2024 Lab/CXR/EKG Appointment: 10/29/2024 Please schedule HR AVR CLINIC/ Visit on: 10/29/2024 Date of J4-1 Anesthesia only: 10/29/[address] Structural lab schedule on : 10/30/2023 at 5:30 AM CPT Code: 53068 DX code: I35.0 INSTRUCTOR DECORATING: Dr. Wells Performing Physician: Dr. Wells OR: 81 Surgeon: Dr. Arteaga Please schedule bed reservation for post procedure-(should be a TCI) MELISSA schedule- intra/op Patient also needs INSURANCE PRECERTIFICATION ADL SCORE 6__ SURVIVAL RATE GREATER THAN 1 YEAR____Y___(LOOKING FOR A YES) EF ___60__(GREATER THAN 50%) KCCQ-12: completed 15 Ft W: completed Thank you. Request sent to scheduling. Luba Llanes APRN.[facility]YOhio [facility] Health System12-11-2024 History of Present illness Narrative* Luba Llanes APRN.JACEY - 10/07/2024 3:59 PM EST I spoke [...] hours for Dr. Aguilera): Carvedilol Luba Llanes APRN.JACEY [facility], [facility], Please schedule Gogo Ware, [id number] for COMMERCIAL TF- TAVR S3 vs ROMEL Procedure on: 10/30/2024 Lab/CXR/EKG Appointment: 10/29/2024 Please schedule HR AVR CLINIC/ Visit on: 10/29/2024 Date of J4-1 Anesthesia only: 10/29/[address] Structural lab schedule on : 10/30/2023 at 5:30 AM CPT Code: 48981 DX code: I35.0 INSTRUCTOR DECORATING: Dr. Wells Performing Physician: Dr. Wells OR: 81 Surgeon: Dr. Arteaga Please schedule bed reservation for post procedure-(should be a TCI) MELISSA schedule- intra/op Patient also needs INSURANCE PRECERTIFICATION ADL SCORE 6__ SURVIVAL RATE GREATER THAN 1 YEAR____Y___(LOOKING FOR A YES) EF ___60__(GREATER THAN 50%) KCCQ-12: completed 15 Ft W: completed Thank you. Request sent to scheduling. Luba Llanes APRN.CNP documented in this encounterKettering Health [facility]11-20-2024 Telephone encounter Note * Telephone Encounter - Greg Nash APRN.CNP - 09/16/2024 8:31 AM EST Images from the original note were not included. [facility] Work Phone: [phone] Miscellaneous Notes* Telephone Encounter - Greg Nash APRN.CNP - 09/16/2024 8:31 AM EST Images from the original note were not included. documented in this encounterKettering Health [facility]11-18-2024 NoteHNO ID: [id number] Author: KACY JIMENEZ APRN.SHOT BLAST 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 Service: ? Author Type: Nurse Specialist Type: Progress Notes Filed: 09/14/2024 08:57 Note Text: [facility] [place] [facility] Department of Cardiovascular Medicine SECTION OF INTERVENTIONAL CARDIOLOGY Date September 14, 2024 MULTI DISCIPLINARY TAVR TEAM MEETING [employer] Teams Meeting Team members: Dr. Jesus, Dr. Lr, Dr. Wells, Dr. Ruffin, Dr. Shook, Dr. Smith, Dr. Vallejo, Dr. Grace, Dr. Howell, Dr. Cherry, Dr. Love, Dr. Gee, Dr. Ohara, Dr. Forte, , Zoila Gonzalez, JACEY, Gina ALY, Effie DOW and Nilo Garcia, RN. PATIENT NAME: Gogo Ware DATE: 09/14/2024 Presenting Physician: Dr. Wells Outcome: Gogo Ware history and imaging were reviewed by the physicians in attendance. Borderline annular size. IFR of LAD was positive in 2018 but no symptoms. Repeat cath same, but still no angina. CT reviewed. The collaborative recommendation would be: TF 25 Romel vs TF S3 (Dr. Wells will review off-line) The patient will be contacted in the next few days/weeks to discuss the team recommendations. TAVR procedure scheduling will be handled by: CVM coordinator. Kacy Jimenez APRN.[facility]Ohio [facility]11-18-2024 History of Present illness Narrative* Kacy Jimenez APRN.[facility] - 09/14/2024 8:52 AM EST Images from the original note were not included. [facility] [place] Pam López Department of Cardiovascular Medicine SECTION OF INTERVENTIONAL CARDIOLOGY Date September 14, 2024 MULTI DISCIPLINARY TAVR TEAM MEETING Microsoft Teams Meeting Team members: Dr. Jesus, Dr. Lr, Dr. Wells, Dr. Ruffin, Dr. Shook, Dr. Smith, Dr. Vallejo,Dr. Grace, Dr. Howell, Dr. Cherry, Dr. Love, Dr. Gee, Dr. Ohara, Dr. Forte, , Zoila Gonzalez, JACEY, Gina ALY, Effie DOW and Nilo Garcia, RN. PATIENT NAME: Gogo Ware DATE: 09/14/2024 [...] be handled by: CVM coordinator. Kacy Jimenez APRN.SHOT BLAST 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 documented in this encounterKettering Health [facility]11-13-2024 NoteHNO ID: [id number] Author: GENOVEVA ARTEAGA MD Service: ? Author Type: Physician Type: Progress Notes Filed: 09/09/2024 15:51 Note Text: [facility] [place] [facility] Template ID: [id number] SERVICE DATE: 09/09/2024 SERVICE TIME: 3:12 PM [...] Ware DATE: September 09, 2024 TIME: 3:12 [facility]11-13-2024 History of Present illness Narrative* Genoveva Arteaga MD - 09/09/2024 3:11 PM EST [facility] [place] [facility] Template ID: [id number] SERVICE DATE: 09/09/2024 SERVICE TIME: 3:12 PM [...] 2024 TIME: 3:12 PM documented in this encounterKettering Health [facility]11-13-2024 Instructions* Patient Instructions* Luba Llanes APRN.ADMINISTRATIVE TECH - 09/09/2024 2:23 PM EST Your case will be discussed with the valve team on SaturdaySeptember 14. You will be contacted in about 2-3 weeks after the meeting to discuss the recommendations. If you have not heard from our office after that time, please feel free to contact Dr. Wells's office: [phone] Reminder: Please obtain dental clearance aamir. Have [...] your risk of future heart problems. For [facility] call [phone] to schedule after you are home from your procedure. If you do not receive your referral, please call your ward helper's office for the order. Luba Llanes APRN.CNP documented in this encounterKettering Health [facility]11-13-2024 History of Present illness Narrative* Luba Llanes APRN.CNP - 09/09/2024 2:00 PM EST Images from the original note were not included. [facility] [place] Pam López Department of Cardiovascular Medicine SECTION [...] seeing Dr. Arteaga Gogo Ware is from [place] where she lives alone. Patient states that [...] AORTIC DIMENSIONS: AORTIC ROOT: 3.0 cm measured ahrbl-bd-fssmk STJ: 2.5 cm mid ASCENDING THORACIC AORTA: [...] the thoracic and lumbar spine.Bilateral hip arthroplasty Security Nurse (topogram) images: No additional findings. Carotid Ultrasound [...] Abs Lymph 1.00 - 4.00 k/uL 1.90 Iron% % 8.6 Abs Iron <0.87 k/uL 0.54 Eosin% % 1.7 Abs [...] personally reviewed all of the above testing. LEHIGH ACRES CARDIOMYOPATHY QUESTIONNAIRE (KCCQ-12) Activity: A. Showering/bathing: Extremely [...] for other reasons. 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 Luba Llanes APRN.JACEY documented in this encounterKettering Health [facility]11-13-2024 NoteHNO ID: [id number] Author: LUBA LLANES APRN.CNP Service: ? Author Type: Nurse Practitioner Type: Progress Notes Filed: 09/09/2024 17:00 Note Text: [facility] [place] Pam López Department of Cardiovascular Medicine SECTION [...] seeing Dr. Arteaga Gogo Ware is from [place] where she lives alone. Patient states that [...] VALVE: appears trileaflet. Se (more content not included)...[facility]11-13-2024 NoteHNO ID: [id number] Author: TERRIE PRASAD RRT Service: ? Author Type: Registered Resp Therapist Type: Progress Notes Filed: 09/09/2024 12:31 Note Text: PULM FUNCTION: Provider: Kacy Jimenez APRN.SHOT BLAST 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 Spirometry: 1 DLCO: 1CKettering Health [facility]11-13-2024 History of Present illness Narrative * Terrie Prasad RRT - 09/09/2024 12:31 PM EST PULM FUNCTION: Provider: Kacy Jimenez APRN.SHOT BLAST 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 Spirometry: 1 DLCO: 1 documented in this encounterKettering Health [facility]burg11-13-2024 History of Present illness Narrative* Vel Whalen [...] PATIENT PRESENTS WITH AN IMPLANTABLE OR ATTACHED FOREIGN EXCHANGE SERVICES MANAGER: No CREATININE: Creatinine Date Value Ref Range [...] information regarding radiation safety can be found usingFileblazes link: [email or web address]%20Protection%20-% 20Diagnostic%20Nuclear%20Medicine%20Procedures.pdf SIGNATURE: ZAC Sung) PATIENT NAME: Gogo Ware DATE: September 09, 2024 TIME: 11:17 AM PAGER/CONTACT #: documented in this encounterKettering Health [facility]11-13-2024 NoteHNO ID: [id number] Author: VEL WHALEN RT (R) Service: Radiology Author Type: Technologist Type: Progress [...] PATIENT PRESENTS WITH AN IMPLANTABLE OR ATTACHED FOREIGN EXCHANGE SERVICES MANAGER: No CREATININE: Creatinine Date Value Ref Range [...] safety can be found using this link: [email or web address]%[email or web address]%[email or web address]-% 20Diagnostic%20Nuclear%20Medicine%20Procedures.pdf SIGNATURE: RT Pineda(R) PATIENT NAME: Gogo Ware DATE: September 09, 2024 TIME: 11:17 AM PAGER/CONTACT #:[facility]11-06-2024 Telephone encounter Note* Telephone Encounter - Trinity [...] Dawkins RN, RN. In Department of CARDIOLOGY. [facility]11-06-2024 Miscellaneous Notes* Telephone Encounter - Trinity Dawkins [...] In Department of CARDIOLOGY. documented in this encounterKettering Health [facility]11-04-2024 History of Present illness Narrative* Live Escalante [...] PATIENT PRESENTS WITH AN IMPLANTABLE OR ATTACHED FOREIGN EXCHANGE SERVICES MANAGER: No RADIOLOGY DEPARTMENT: CT; Exam(s) Completed: Cardiac [...] 2024 TIME: 12:07 PM documented in this encounterKettering Health [facility]11-04-2024 NoteHNO ID: [id number] Author: CHLOÉ CONN RN Service: ? Author [...] Ware DATE: August 31, 2024 TIME: 12:07 [facility]11-04-2024 NoteHNO ID: [id number] Author: LIVE ESCALANTE RT(R) Service: Radiology Author [...] PATIENT PRESENTS WITH AN IMPLANTABLE OR ATTACHED FOREIGN EXCHANGE SERVICES MANAGER: No RADIOLOGY DEPARTMENT: CT; Exam(s) Completed: Cardiac PERIPHERAL IV DATA: Site assessment: Clean,Dry and Intact, Site disposition Discontinued SIGNED BY: RT Shoshana(R) August 31, 2024 12:40 [facility]11-04-2024 History of Present illness Narrative* Odilon Wells MD - 08/31/2024 11:12 AM EST Interventional Cardiology Staff Note Dr. Wells receives payments from several device companies for educational activities, advisory boardduties, consulting, and/or proctoring. The companies include: [employer], [employer], and [employer]. A product by [employer], [employer], [employer], or a competitor, may be used in this patient's care. Dr. Wells does not receive any money for products he or any other [facility] physicians prescribe or use. Dr. Wells's choice on which product used in this patient's case is or was not influenced by his relationship with any company. Dr. Wells selected the product that in his hands is believed to be the best option for this patient's treatment. This was discussed with the patient. Odilon Wells MD, MSc documented in this encounterKettering Health [facility]11-04-2024 NoteHNO ID: [id number] Author: ODILON WELLS MD Service: ? Author Type: Physician Type: Progress Notes Filed: 08/31/2024 11:12 Note Text: Interventional Cardiology Staff Note Dr. Wells receives payments from several device companies for educational activities, advisory board duties, consulting, and/or proctoring. The companies include: [employer], [employer], and [employer]. A product by [employer], [employer], [employer], or a competitor, may be used in this patient's care. Dr. Wells does not receive any money for products he or any other [facility] physicians prescribe or use. Dr. Wells's choice on which product used in this patient's case is or was not influenced by his relationship with any company. Dr. Wells selected the product that in his hands is believed to be the best option for this patient's treatment. This was discussed with the patient. Odilon Wells MD, MScOhio State Health System11-04-2024 History of Present illness Narrative* Odilon Wells MD - 08/31/2024 9:45 AM EST Images from the original note were not included. [facility] [place] Pam López Department of Cardiovascular Medicine SECTION OF INTERVENTIONAL CARDIOLOGY OUTPATIENT VISIT DATE August 31, 2024 OUTPATIENT VISIT TYPE NEW PRIMARY CARE PHYSICIAN: Berta Rankin [address] [id number] REFERRING PHYSICIAN: James Lindo MD, PhD, [facility] Staff, Section of Cardiovascular Imaging Department of Cardiovascular Medicine [facility] Vascular [facility] CHIEF COMPLAINT: TAVR evaluation HISTORY OF PRESENT ILLNESS: Ms. Ware is a 84 year old female from [place] who presents today for TAVR evaluation. She [...] (left eye completely blind) She lives in [facility], and she is very functionally active. She [...] resulted at 1500. Her daughter lives in [place] and rest of her family in [place]. PAST MEDICAL HISTORY Diagnosis Date Aortic valve [...] -Obtain lipid panel Marisol Bergeron MD PGY-6 Animal Science Instructor I personally interviewed, confirmed and edited the above information as obtained by others. ----- [facility] STAFF PHYSICIAN NOTE OF PERSONAL INVOLVEMENT [...] has a baseline 1st degree AVB w MN 210 ms, and would be at higher [...] OF SERVICE: 10:06 AM documented in this encounterKettering Health [facility]11-04-2024 NoteHNO ID: [id number] Author: ODILON WELLS MD Service: ? Author Type: Physician Type: Progress Notes Filed: 08/31/2024 10:20 Note Text: [facility] [place] Pam López Department of Cardiovascular Medicine SECTION OF INTERVENTIONAL CARDIOLOGY OUTPATIENT VISIT DATE August 31, 2024 OUTPATIENT VISIT TYPE NEW PRIMARY CARE PHYSICIAN: Berta Rankin [address] [id number] REFERRING PHYSICIAN: James Lindo MD, PhD, [facility] Staff, Section of Cardiovascular Imaging Department of Cardiovascular Medicine [facility] and [facility] [place] [facility] CHIEF COMPLAINT: TAVR evaluation HISTORY OF PRESENT ILLNESS: Ms. Ware is a 84 year old female from [place] who presents today for TAVR evaluation. She [...] (left eye completely blind) She lives in [facility] [facility], and she is very functionally active. She [...] resulted at 1500. Her daughter lives in [place] and rest of her family in [place]. PAST MEDICAL HISTORY Diagnosis Date Aortic valve [...] no S4, no heaves, (more content not included)...[facility]08-13-[facility] Note HNO ID: [id number] Author: AKCY JIMENEZ APRN.SHOT BLAST 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 Service: ? Author Type: Nurse Specialist Type: Progress Notes Filed: 06/09/2024 16:05 Note Text: TAVR STRUCTURAL REVIEW FORM Orders placed by Dr. Lindo on 05/22/2024 Records Reviewed: 06/09/2024 Appt request sent: 06/09/2024 I spoke with her on the phone. She lives alone and has a friend drive her for all of her appointments. her daughter lives in [place]; the rest of her family is in [facility]. She is not interested in open hear surgery. She is very independent. She reports she doesn't have symptoms. however, I reviewed with her the results of her BNP and what this means in relation to her . She is agreeable to come for the evaluation. Records in [employer] have been reviewed. Severe . Request has been sent to the stylist assistant who will arrange an appointment schedule. Please [...] is an 84 year old female ( [place]) with pmhx of: HTN HLD glaucoma ( left eye completely blind) Records review Echo 04/15/2024 ( [place]): - The left ventricle is normal in [...] greater, then it should be by an In Store Representative ONLY (Dr. Schultz, Dr. Wells, Dr. Aguilera, [...] Dr. Doss/ Dr. Celaya /Dr. Genevieve Jimenez APRN.[facility]08-13-2024 History of Present illness Narrative* Kacy Jimenez APRN.SHOT BLAST 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 - 06/09/2024 3:06 PM EDT TAVR STRUCTURAL REVIEW FORM Orders placed by Dr. Lindo on 05/22/2024 Records Reviewed: 06/09/2024 Appt request sent: 06/09/2024 I spoke with her on the phone. She lives alone and has a friend drive her for all of her appointments. her daughter lives in [place]; the rest of her family is in [place]. She is not interested in open hear surgery. She is very independent. She reports she doesn't have symptoms. however, I reviewed with her the results of her BNP and what this means in relation to her . She is agreeable to come for the evaluation. Records in [employer] have been reviewed. Severe . Request has been sent to the stylist assistant who will arrange an appointment schedule. Please [...] is an 84 year old female ( [place]) with pmhx of: HTN HLD glaucoma ( left eye completely blind) Records review Echo 04/15/2024 ( [place]): - The left ventricle is normal in [...] aortic valve disorder Referring physician: Dr. Lindo ONE: Dr. Amaro/Dr. Sheriff/Dr. Peace/Dr. Parr/Dr. Feliciano/Dr. [...] greater, then it should be by an In Store Representative ONLY (Dr. Schultz, , Dr. Aguilera, Dr. [...] Dr. Doss/ Dr. Celaya /Dr. Genevieve Jimenez APRN.SHOT BLAST 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 documented in this encounterKettering Health [facility]07-30-2024 NoteHNO ID: [id number] Author: WALI TRIANA MD Service: ? Author [...] same as before , follows with Dr. Mcgowan new mrx given can follow-up me prn next visit [...] all of its relevant components. Wali Triana, [facility]07-30-2024 History of Present illness Narrative* Wali Triana [...] continue same as before , follows with new mrx given can follow-up me prn next visit [...] components. Wali Triana MD documented in this encounterKettering Health [facility]07-26-2024 Telephone encounter Note * Telephone Encounter - James Lindo MD - 05/22/2024 8:08 AM EDT She gets dyspnea when over-exerting, not with ordinary activities. NT pro BNP is significantly elevated. Will refer for consideration of TAVR. Patient agreeable. [facility]07-26-2024 Miscellaneous Notes* Telephone Encounter - James Lindo MD - 05/22/2024 8:08 AM EDT She gets dyspnea when over-exerting, not with ordinary activities. NT pro BNP is significantly elevated. Will refer for consideration of TAVR. Patient agreeable. documented in this encounterKettering Health [facility]07-02-2024 History of Present illness Narrative* James Lindo MD - 04/28/2024 1:45 PM EDT Images from the original note were not included. [facility] [place] Pam López Department of Cardiovascular Medicine SECTION OF CARDIOVASCULAR IMAGING OUTPATIENT VISIT DATE April 28, 2024 OUTPATIENT VISIT TYPE CONSULTATION PRIMARY CARE PHYSICIAN: To use this Smartlink, specify the provider ID whose address you want to display, e.g., .PROVADDR[1(where 1 is the provider ID). REFERRING PHYSICIAN Berta Rankin [address] [address] CHIEF COMPLAINT: Aortic stenosis HISTORY OF PRESENT ILLNESS/ NURSING INTAKE: Cardiac consultation at the request of Dr. Berta Rich. A copy of this consultation note will be provided to the requesting physician by way of shared Medical record or letter to requesting physician via US mail. Ms. Ware is a 84 year old female from [place], [place] here today for cardiovascular evaluation related [...] drives and does own groceries. Originally from [place] she does not have any family in [...] others. CONTACT INFORMATION: James Lindo MD, PhD, [facility] Staff, Section of Cardiovascular Imaging Department of Cardiovascular Medicine [facility] [place] [facility] documented in this encounterKettering Health [facility]07-02-2024 NoteHNO ID: [id number] Author: JAMES LINDO MD Service: ? Author Type: Physician Type: Progress Notes Filed: 04/28/2024 15:32 Note Text: [facility] [place] Pam López Department of Cardiovascular Medicine SECTION OF CARDIOVASCULAR IMAGING OUTPATIENT VISIT DATE April 28, 2024 OUTPATIENT VISIT TYPE CONSULTATION PRIMARY CARE PHYSICIAN: To use this Smartlink, specify the provider ID whose address you want to display, e.g., .PROVADDR[1 (where 1 is the provider ID). REFERRING PHYSICIAN Berta Rankin [address] [address] CHIEF COMPLAINT: Aortic stenosis HISTORY OF PRESENT ILLNESS/ NURSING INTAKE: Cardiac consultation at the request of Dr. Berta Rich. A copy of this consultation note will be provided to the requesting physician by way of shared Medical record or letter to requesting physician via US mail. Ms. Ware is a 84 year old female from [place], [place] here today for cardiovascular evaluation related [...] and restricted opening. She was referred by Berta Rahman PA referred the patient to [facility] imaging for TAVR workup. She reports shortness [...] No jugular venous di (more content not included)...[facility]06-27-2024 Telephone encounter Note* Telephone Encounter - Azul Madrigal APRN.ADMINISTRATIVE TECH - 04/23/2024 2:41 PM EDT I called the patient to discuss her upcoming appointments with the ward helper to evaluate for possible TAVR. The patient [...] the appointments. Also of note, Dr Lindo's hospital administrative assistant left a message for Kenisha to call her to go overthe appointments and to assist her with the directions. SIERRA Garza [facility] Work Phone: [phone] Miscellaneous Notes* Telephone Encounter - Azul Madrigal APRN.CNP - 04/23/2024 2:41 PM EDT I called the patient to discuss her upcoming appointments with the ward helper to evaluate for possible TAVR. The patient [...] the appointments. Also of note, Dr Lindo's hospital administrative assistant left a message for Kenisha to call her to go overthe appointments and to assist her with the directions. SIERRA Garza documented in this encounterKettering Health [facility]06-27-2024 Telephone encounter Note * Telephone Encounter - Vitor Toth - 04/23/2024 9:55 AM EDT Called patient's friend - Kenisha Hedrick, to provide appointment information. There was no answer,left voicemail requesting call back [facility]06-27-2024 Miscellaneous Notes* Telephone Encounter - Vitor Toth - 04/23/2024 9:55 AM EDT Called patient's friend - Kenisha Hedrick, to provide appointment information. There was no answer,left voicemail requesting call back documented in this encounterKettering Health [facility]burg06-25-2024 NoteHNO ID: [id number] Author: WALI TRIANA MD Service: ? Author [...] all of its relevant components. Wali Triana, [facility]06-25-2024 History of Present illness Narrative* Wali Triana [...] components. Wali Triana MD documented in this encounterKettering Health [facility]06-25-2024 Telephone encounter Note * Telephone Encounter - [...] me to reschedule if needed. SIERRA Garza [facility]06-25-2024 Miscellaneous Notes* Telephone Encounter - Azul Madrigal [...] call me to reschedule if needed. Azul Banjac, TEST WORKER-ADMINISTRATIVE TECH documented in this encounterKettering Health [facility]burg06-20-2024 Telephone encounter Note * Telephone Encounter - Berta Rich PA-C - 04/16/2024 2:54 PM EDT Summary: Cardiac Surgery Referral Referral sent to severe aortic stenosis. Pt would like to proceed with TAVR. [facility]06-20-2024 Miscellaneous Notes* Telephone Encounter - Berta Rich PA-C - 04/16/2024 2:54 PM EDTSummary: Cardiac Surgery Referral Referral sent to severe aortic stenosis. Pt would like to proceed with TAVR. documented in this encounterKettering Health [facility]06-17-2024 Telephone encounter Note * Telephone Encounter - Berta Rich PA-C - 04/13/2024 8:15 AM EDT Summary: ECHO APPOINTMENT Called pt, and gave instructions and directions for echo on 04/15/24. [facility] Work Phone: [phone] Miscellaneous Notes* Telephone Encounter - Berta Rich PA-C - 04/13/2024 8:15 AM EDTSummary: ECHO APPOINTMENT Called pt, and gave instructions and directions for echo on 04/15/24. documented in this encounterKettering Health [facility]06-10-2024 Telephone encounter Note * Telephone Encounter - Wali Triana MD - 04/06/2024 8:31 PM EDT I sent her prescriptions to her pharmacy but nothing starts until after the surgery is complete (the day of surgery) [facility]06-10-2024 Miscellaneous Notes* Telephone Encounter - Wali Triana [...] elects monofocal IOL - Dilation: 7mm - Flomax/alpha-maduh? No - Anesthesia: Topical with MAC - [...] to perform target plano documented in this encounterKettering Health [facility]06-10-2024 Telephone encounter Note * Telephone Encounter - Amrita Perea LPN - 04/06/2024 3:07 PM EDT Received last office visit and cardiac testing. Original sent to [facility] through Onbase scanning. Amrita Perea LPN [facility]06-10-2024 Miscellaneous Notes* Telephone Encounter - Amrita Perea LPN - 04/06/2024 3:07 PM EDT Received last office visit and cardiac testing. Original sent to [facility] through Onbase scanning. Amrita Perea LPN * Telephone Encounter - Amrita Perea LPN - 04/06/2024 2:16 PM EDT Fax request sent to [facility] requesting last office visit and cardiac testing for upcoming surgery 04/20/24. .Amrita Perea LPN * Telephone Encounter - Dorothy Han APRN.ADMINISTRATIVE TECH - 04/06/2024 1:56 PM EDT Please request last cardiac OV and testing from [facility]. DOS 04/20/2024. documented in this encounterKettering Health [facility]06-10-2024 Telephone encounter Note * Telephone Encounter - [...] possible PPV jg to perform target plano [facility] Work Phone: [phone] Telephone encounter Note* Telephone Encounter - Amrita Perea LPN - 04/06/2024 2:16 PM EDT Fax request sent to [facility] requesting last office visit and cardiac testing for upcoming surgery 04/20/24. .Amrita Perea LPN [facility]06-10-2024 Telephone encounter Note* Telephone Encounter - Dorothy Han APRN.JACEY - 04/06/2024 1:56 PM EDT Please request last cardiac OV and testing from [facility]. DOS 04/20/2024. [facility]06-10-2024 Instructions* Patient Instructions* Dorothy Han APRN.JACEY - 04/06/2024 1:09 PM EDT PATIENT PREOPERATIVE INSTRUCTIONS No ref. provider found has scheduled you for your procedure at this surgery center: [facility] [place]: [phone] --[facility] [place], [address], [place] [address]. Please read below carefully for your personalized [...] Procedures: - YOU MUST HAVE A RESPONSIBLE CREDIT AND COLLECTIONS ANALYST TAKE YOU HOME. A COLOR MAKING SUPERVISOR OR BRIGHT CUTTER CANNOT BE MADE A RESPONSIBLE CREDIT AND COLLECTIONS ANALYST. - We recommend that a responsible person stays with you overnight to take care of you. - You cannot stay in a hotel alone after outpatient surgery. You will not be permitted to have yoursurgery, if you do not have someone to take care of you. If you already have an Advance Directive, please fax a copy to [phone] or email to for it to be [...] into your chart that day. 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 Patient / Responsible [employer] Party agrees to proceed: yes Patient / Surrogate agrees to blood products: blood products not planned Discussed the possibility of lip / dental damage: yes Prepared for Surgery: optimally prepared for surgery, pending [see comment]. Email to anesthesia the [facility] chart SEVERE aortic stenosis CONSULTS: The [...] Essential (Primary) Hypertension Coronary Artery Disease Involving [place] Coronary Artery of [place] Heart With Angina Pectoris (Hcc) Insomnia Glaucoma [...] fevers. Neurological: No history of TIA's, stroke, SHOT BLAST 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 tumor, impaired sensorium, hemiplegia, paraplegia orquadraplegia. No [...] pain, CHF, congenital heart defect, DVT/PE, recent VA, murmur/valvular heart disease, PVD, open heart surgery and valve surgery. GI: No history of GI symptoms or problems. No history of esophageal varices, recent ascites, or ETOH greater than 2 drinks per day. : No history of dysuria, frequency or incontinence, stones or chronic kidney disease. No difficulty urinating, nocturia > 1 time per night or hematuria. ANODE CREW SUPERVISOR: Negative for abnormal vaginal bleeding, abnormal vaginal [...] or any previous visit (from the past 45089 hour(s)). Instructions Given to Patient: Instructions located in the after visit summary. Patient given verbal and written preop instructions and voices comprehension and compliance. 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 Patient / Responsible Green Party agrees to proceed: yes Patient / [...] ENDOSCOPIC CYCLOPHOTOCOAGULATION (Left) at the request of Dr. Triana, Wali Cunningham MD for consultation. My final recommendation will be communicated back to the requesting physician by way of shared medical record or letter. Subjective The patient has the following: ACTIVE PROBLEM LIST Mixed Hyperlipidemia Essential (Primary) Hypertension Coronary Artery Disease Involving [place] Coronary Artery of [place] Heart With Angina Pectoris (Hcc) Insomnia Glaucoma [...] fevers. Neurological: No history of TIA's, stroke, SHOT BLAST 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 tumor, impaired sensorium, hemiplegia, paraplegia orquadraplegia. No [...] pain, CHF, congenital heart defect, DVT/PE, recent VA, murmur/valvular heart disease, PVD, open heart surgery and valve surgery. GI: No history of GI symptoms or problems. No history of esophageal varices, recent ascites, or ETOH greater than 2 drinks per day. : No history of dysuria, frequency or incontinence, stones or chronic kidney disease. No difficulty urinating, nocturia > 1 time per night or hematuria. ANODE CREW SUPERVISOR: Negative for abnormal vaginal bleeding, abnormal vaginal [...] or any previous visit (from the past 66753 hour(s)). Instructions Given to Patient: Instructions located in the after visit summary. Patient given verbal and written preop instructions and voices comprehension and compliance. SIGNATURE: Dorothy Han APRN.CNP PATIENT NAME: Gogo Ware DATE: April 06, 2024 TIME: 1:08 PM PAGER/CONTACT #: [facility] Telephone encounter Note * Telephone Encounter - Goldy Nolan - 02/13/2024 10:51 AM EDT Patient hasn't heard from anyone regarding scheduling her surgery. Please contact patient. [facility]04-18-2024 Miscellaneous Notes* Telephone Encounter - Goldy Nolan - 02/13/2024 10:51 AM EDT Patient hasn't heard from anyone regarding scheduling her surgery. Please contact patient. * Telephone Encounter - Elba Metz - 01/17/2024 10:43 AM EDT LVM = sent This is a courtesy call from [facility] to inform you that Dr Triana's surgery manager will be contacting you within the next 7-10 business days to discuss scheduling surgery documented [facility] Telephone encounter Note * Telephone Encounter - Elba Metz - 01/17/2024 10:43 AM EDT LVM = sent This is a courtesy call from [facility] to inform you that Dr Triana's surgery manager will be contacting you within the next 7-10 business days to discuss scheduling surgery [facility]03-21-2024 History of Present illness Narrative* Wali Triana [...] components. Wali Triana MD documented in this encounterK[facility] summary Author aMnny Murdock [facility] Note Date/Time May 14, 2025 12:4 4pm [facility] Medical Records Department [address] [place] [id number] Discharge Summary 05/14/25 1237 MR#: [id number] Acct: [id number] Name: GOGO WARE p #:[id number] : 1940 85 From: Manny Millard PCP: Dr. Eh Huddleston MD Status:ADM I N Location: [place] [address] Providers Date of Admission: 05/07/25 Date of [...] of Notification: Answering Service Comments:: Patient on [facility] Staff Notify [facility] of Tele-Neurology [...] slurred speech and encephalopathy therefore transferred from [facility] to [facility]. 1. Left distal femur fracture secondary to [...] the visualized lower lumbar spine are seen. [id number] degenerative changes of the visualized portions of the left knee. Reading Location: [id number] Femur X-Ray 05/07/25 07:24 IMPRESSION: A spiral [...] the visualized lower lumbar spine are seen. [id number] degenerative changes of the visualized portions of the left knee. Reading Location: [id number] Femur X-Ray 05/09/25 08:00 IMPRESSION: Anatomic alignment Reading Location: [facility] Brain CT 05/10/25 09:24 IMPRESSION: CHRONIC CHANGES. NO ACUTE FINDINGS. Reading Location: [facility]-IR-[facility] Head/Neck CTA 05/10/25 09:35 IMPRESSION: Atherosclerotic calcific plaques at the origin of the right and left internal carotid arteries as described. Red Alert: Nothing acute The critical information above was relayed directly by me by telephone to Sourav Casiano on 05/10/2025 at 9:55 am with readback verification. Reading Location: [facility]-IR-1 Brain MRI 05/11/25 12:05 IMPRESSION: 1. Numerous [...] (Auto) 67.5, Lymph % (Auto) 18.1 L, Iron % (Auto) 10.3 H, Eos % (Auto) [...] Recorder Preventi (Urgent) Timeframe: 1 Day Facility: [facility] - Location: Cardiovascular Services Ordered By: Dr. [...] in before D/C Order can be placed): Senior Living Facility 05/14/25 1244 <Electronically signed by Manny Murdock MD> Cosigner Signature (if applicable): CC: Dr. Manny Murdock MD; Dr. Eh Huddleston MD~ Signed [facility] Work Phone: Evaluation noteNo assessment information available [facility] Work Phone: Evaluation note* Diagnosis Onset Date Resolution Status Atherosclerotic heart diseas e of nikolai coronary artery without angina pectoris chronic Essential hypertension chron ic Nonrheumatic aortic (valve) stenosis chronic Pure hypercholesterolemia [facility] Work Phone: Evaluation note* Diagnosis Onset Date Resolution Status Atherosclerotic heart diseas e of nikolai coronary artery without angina pectoris chronic Essential hypertension chron ic Nonrheumatic aortic (valve) stenosis chronic Pure hypercholesterolemia [facility] Atherosclerotic heart diseas e of nikolai coronary artery without angina pectoris chronic Essential hypertension chron ic Nonrheumatic aortic (valve) stenosis chronic Pure hypercholesterolemia [facility] Work Phone: Evaluation note* Diagnosis Total, mature senile cataract- Primary Total or mature senile cataract [facility]* Diagnosis Total, mature senile cataract- Primary Total or mature senile cataract 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, 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, severe stage documented in this [facility]* Diagnosis Pre-operative examination- Primary Preoperative examination, unspecified Severe aortic stenosis by prior echocardiogram Aortic valve disorders 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) Insomnia, unspecified type Essential (primary) hypertension Unspecified essential hypertension Mixed hyperlipidemia Glaucoma, unspecified glaucoma type, unspecified laterality Total, mature senile cataract Total or mature senile cataract * Assessment & Plan Note - Dorothy Han APRN.CNP - 04/07/2024 9:20 AM EDT Associated Problem(s): 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) Images from [...] controlled on rx [facility]* Diagnosis Aortic valve stenosis, etiology of cardiac valve disease unspecified- Primary Preop examination Preoperative examination, unspecified Total, mature senile cataract Total or mature senile cataract documented [facility]* Diagnosis Aortic valve stenosis, etiology of cardiac valve disease unspecified- Primary Total, mature senile cataract Total or mature senile cataract documented [facility]* Diagnosis Aortic valve stenosis, etiology of cardiac valve disease unspecified- Primary documented in [facility]* Diagnosis Pseudophakia- Primary Lens 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 documented [facility]* Diagnosis Non-rheumatic aortic stenosis- Primary Aortic valve disorders Coronary artery disease due to lipid rich plaque documented [facility]* Diagnosis Non-rheumatic aortic stenosis- Primary Aortic valve disorders documented [facility]* Diagnosis PCO (posterior capsular opacification), left- Primary After-cataract, unspecified Pseudophakia Lens replaced by other means Primary open angle glaucoma (POAG) of left eye, severe stage documented [facility]* Diagnosis Severe aortic stenosis by prior echocardiogram- Primary Aortic valve disorders Encounter for preprocedural cardiovascular examination Pre-operative cardiovascular examination Aortic valve disorder Aortic valve disorders documented [facility]* Diagnosis Pre-operative examination- Primary Preoperative examination, unspecified Severe aortic stenosis by prior echocardiogram Aortic valve disorders 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) Insomnia, unspecified type Essential (primary) hypertension Unspecified essential hypertension Mixed hyperlipidemia Glaucoma, unspecified glaucoma type, unspecified laterality Nonrheumatic aortic valve stenosis- Primary Aortic valve disorders Coronary artery disease involving nikolai coronary artery of nikolai heart, unspecified whether angina present Encounter to establish care Other reasons for seeking consultation Pre-operative cardiovascular examination Chronic diastolic congestive heart failure (HCC) Chronic diastolic heart failure Nonrheumatic aortic valve stenosis Aortic valve disorders [facility]* Diagnosis Pre-operative examination- Primary Preoperative examination, unspecified Severe aortic stenosis by prior echocardiogram Aortic valve disorders 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) Insomnia, unspecified type Essential (primary) hypertension Unspecified essential hypertension Mixed hyperlipidemia Glaucoma, unspecified glaucoma type, unspecified laterality Severe aortic stenosis by prior echocardiogram Aortic valve disorders Encounter for preprocedural cardiovascular examination Pre-operative cardiovascular examination Aortic valve disorder Aortic valve disorders Nonrheumatic aortic valve stenosis Aortic valve disorders [facility]* Diagnosis Pre-operative examination- Primary Preoperative examination, unspecified Severe aortic stenosis by prior echocardiogram Aortic valve disorders 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) Insomnia, unspecified type Essential (primary) hypertension Unspecified essential hypertension Mixed hyperlipidemia Glaucoma, unspecified glaucoma type, unspecified laterality Severe aortic stenosis by prior echocardiogram Aortic valve disorders Encounter for preprocedural cardiovascular examination Pre-operative cardiovascular examination Aortic valve disorder Aortic valve disorders Nonrheumatic aortic valve stenosis Aortic valve disorders [facility]* Diagnosis Pre-operative examination- Primary Preoperative examination, unspecified Severe aortic stenosis by prior echocardiogram Aortic valve disorders 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) Insomnia, unspecified type Essential (primary) hypertension Unspecified essential hypertension Mixed hyperlipidemia Glaucoma, unspecified glaucoma type, unspecified laterality Aortic valve disorder- Primary Aortic valve disorders Severe aortic stenosis by prior echocardiogram Aortic valve disorders Encounter for preprocedural cardiovascular examination Pre-operative cardiovascular examination documented [facility]* Diagnosis Pre-operative examination- Primary Preoperative examination, unspecified Severe aortic stenosis by prior echocardiogram Aortic valve disorders 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) Insomnia, unspecified type Essential (primary) hypertension Unspecified essential hypertension Mixed hyperlipidemia Glaucoma, unspecified glaucoma type, unspecified laterality Aortic valve disorder- Primary Aortic valve disorders Severe aortic stenosis by prior echocardiogram Aortic valve disorders Encounter for preprocedural cardiovascular examination Pre-operative cardiovascular examination documented [facility]* Diagnosis Pre-operative examination- Primary Preoperative examination, unspecified Severe aortic stenosis by prior echocardiogram Aortic valve disorders 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) Insomnia, unspecified type Essential (primary) hypertension Unspecified essential hypertension Mixed hyperlipidemia Glaucoma, unspecified glaucoma type, unspecified laterality Nonrheumatic aortic valve stenosis- Primary Aortic valve disorders documented [facility]* Diagnosis Pre-operative examination- Primary Preoperative examination, unspecified Severe aortic stenosis by prior echocardiogram Aortic valve disorders 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) Insomnia, unspecified type Essential (primary) hypertension Unspecified essential hypertension Mixed hyperlipidemia Glaucoma, unspecified glaucoma type, unspecified laterality Nonrheumatic aortic valve stenosis- Primary Aortic valve disorders [facility]* Diagnosis Pre-operative examination- Primary Preoperative examination, unspecified Severe aortic stenosis by prior echocardiogram Aortic valve disorders 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) Insomnia, unspecified type Essential (primary) hypertension Unspecified essential hypertension Mixed hyperlipidemia Glaucoma, unspecified glaucoma type, unspecified laterality Severe aortic stenosis by prior echocardiogram Aortic valve disorders Encounter for preprocedural cardiovascular examination Pre-operative cardiovascular examination Aortic valve disorder Aortic valve disorders [facility]* Diagnosis Pre-operative examination- Primary Preoperative examination, unspecified Severe aortic stenosis by prior echocardiogram Aortic valve disorders 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) Insomnia, unspecified type Essential (primary) hypertension Unspecified essential hypertension Mixed hyperlipidemia Glaucoma, unspecified glaucoma type, unspecified laterality Nonrheumatic aortic valve stenosis- Primary Aortic valve disorders [facility]* Diagnosis Pre-operative examination- Primary Preoperative examination, unspecified Severe aortic stenosis by prior echocardiogram Aortic valve disorders 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) Insomnia, unspecified type Essential (primary) hypertension Unspecified essential hypertension Mixed hyperlipidemia Glaucoma, unspecified glaucoma type, unspecified laterality Nonrheumatic aortic valve stenosis- Primary Aortic valve disorders Aortic valve disorder Aortic valve disorders Aortic valve stenosis, etiology of cardiac valve disease unspecified documented in this encounter [facility] note* Diagnosis Pre-operative examination- Primary Preoperative examination, unspecified Severe aortic stenosis by prior echocardiogram Aortic valve disorders 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) Insomnia, unspecified type Essential (primary) hypertension Unspecified essential hypertension Mixed hyperlipidemia Glaucoma, unspecified glaucoma type, unspecified laterality Encounter for preoperative anesthesiology assessment for cardiac surgery- Primary Aortic valve stenosis, etiology of cardiac valve disease unspecified documented in this encounter [facility] note* Diagnosis Pre-operative examination- Primary Preoperative examination, unspecified Severe aortic stenosis by prior echocardiogram Aortic valve disorders 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) Insomnia, unspecified type Essential (primary) hypertension Unspecified essential hypertension Mixed hyperlipidemia Glaucoma, unspecified glaucoma type, unspecified laterality Nonrheumatic aortic valve stenosis- Primary Aortic valve disorders Aortic valve disorder Aortic valve disorders Aortic valve stenosis, etiology of cardiac valve disease unspecified [facility]* Diagnosis Pre-operative examination- Primary Preoperative examination, unspecified Severe aortic stenosis by prior echocardiogram Aortic valve disorders 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) Insomnia, unspecified type Essential (primary) hypertension Unspecified essential hypertension Mixed hyperlipidemia Glaucoma, unspecified glaucoma type, unspecified laterality Mixed hyperlipidemia Essential (primary) hypertension Unspecified essential hypertension 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 Aortic valve disorders Acute on chronic diastolic congestive heart failure (HCC) Acute on chronic diastolic heart failure Nonrheumatic aortic valve stenosis- Primary Aortic valve disorders S/P TAVR (transcatheter aortic valve replacement) Heart valve replaced by other means Aortic valve stenosis, etiology of cardiac valve disease unspecified documented [facility] encounter [facility]* Diagnosis Pre-operative examination- Primary Preoperative examination, unspecified Severe aortic stenosis by prior echocardiogram Aortic valve disorders 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) Insomnia, unspecified type Essential (primary) hypertension Unspecified essential hypertension Mixed hyperlipidemia Glaucoma, unspecified glaucoma type, unspecified laterality Nonrheumatic aortic valve stenosis Aortic valve disorders Aortic valve disorder Aortic valve disorders [facility]* Diagnosis Pre-operative examination- Primary Preoperative examination, unspecified Severe aortic stenosis by prior echocardiogram Aortic valve disorders 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) [facility]* Diagnosis Pre-operative examination- Primary Preoperative examination, unspecified Severe aortic stenosis by prior echocardiogram Aortic valve disorders 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) Insomnia, unspecified type Essential (primary) hypertension Unspecified essential hypertension Mixed hyperlipidemia Glaucoma, unspecified glaucoma type, unspecified laterality S/P TAVR (transcatheter aortic valve replacement)- Primary Heart valve replaced by other means Severe aortic stenosis Aortic valve disorders Nonrheumatic aortic valve stenosis Aortic valve disorders 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) Mixed hyperlipidemia Essential (primary) hypertension Unspecified essential hypertension [facility] Diagnosis Pre-operative examination- Primary Preoperative examination, unspecified Severe aortic stenosis by prior echocardiogram Aortic valve disorders 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 Insomnia, unspecified type Essential (primary) hypertension Unspecified essential hypertension Mixed hyperlipidemia Glaucoma, unspecified glaucoma type, unspecified laterality Mixed hyperlipidemia- Primary S/P TAVR (transcatheter aortic valve replacement) Heart valve replaced by other means Chronic diastolic congestive heart failure (HCC) Chronic diastolic heart failure 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 Essential (primary) hypertension Unspecified essential hypertension Acute deep vein thrombosis (DVT) of calf muscle vein of right lower extremity (HCC) [facility] Diagnosis Pre-operative examination- Primary Preoperative examination, unspecified Severe aortic stenosis by prior echocardiogram Aortic valve disorders 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 Insomnia, unspecified type Essential (primary) hypertension Unspecified essential hypertension Mixed hyperlipidemia Glaucoma, unspecified glaucoma type, unspecified laterality Mixed hyperlipidemia Essential (primary) hypertension Unspecified essential hypertension 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 aortic valve stenosis Aortic valve disorders S/P TAVR (transcatheter aortic valve replacement) Heart valve replaced by other means Severe aortic stenosis Aortic valve disorders [facility] Diagnosis Pre-operative examination- Primary Preoperative examination, unspecified Severe aortic stenosis by prior echocardiogram Aortic valve disorders 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 Insomnia, unspecified type Essential (primary) hypertension Unspecified essential hypertension Mixed hyperlipidemia Glaucoma, unspecified glaucoma type, unspecified laterality S/P TAVR (transcatheter aortic valve replacement)- Primary Heart valve replaced by other means Severe aortic stenosis Aortic valve disorders documented in this encounter [facility] Discharge instructionsAdditional Instructions Discharge 06/07/2025 to [facility], [facility] Work Phone: [facility] (narrative[facility] Outpatient Procedure (Routine) - Pending Review Specialty Diagnoses / Procedures Referred By Yessy t Referred To Contact [facility] Diagnoses Aortic valve stenosis, etiology of cardiac valve disease unspecified Preop examination Procedures ECHO ECHO TTHRC R-T 2D W/WOM-MODE COMPL SPEC&COLR D Therese Ruelas MD [address] [place] [address] [facility] [place] [address] Referral ID Status Reason Start Date Expiration Date Visits Requested Visits Authorized [id number] Pending Review Auto-Genera fitz Referral Patient Cleared - Admin/Chair man/Directo r advise to proceed or did not respond 04/08/2024 04/08/[address] [facility] for referral (narrative)* Outpatient Procedure (Routine) - Pending Review Specialty Diagnoses / Procedures Referred By Kaileyac lizette Referred To Contact [facility] Diagnoses Non-rheumatic aortic stenosis Procedures ECHO ECHO TTHRC R-T 2D W/WOM-MODE COMPL SPEC&COLR James Ham MD [address] [place] [address] [facility] [place] [address] [address] [place] [id number] Referral ID Status Reason Start Date Expiration Date Visits Requested Visits Authorized [id number] Pending Review Auto-Generat ed Referral 04/28/2024 04/28/2025 1 1 * Outpatient Procedure (Routine) - Pending Review Specialty Diagnoses / Procedures Referred By Yessy t Referred To Contact [facility] Diagnoses Non-rheumatic aortic stenosis Procedures ECG COMPLETE ECG ROUTINE ECG W/LEAST 12 LDS W/I&R James Lindo MD [address] [place] [address] [place] [id number] [place] [address] Referral ID Status Reason Start Date Expiration Date Visits Requested Visits Authorized [id number] Pending Review Auto-Generat ed Referral 04/28/2024 04/28/2025 1 1 * Transition of Care (Routine) - Ref Not Required Specialty Diagnoses / Procedures Referred By Yessy bauer Referred To Contact [facility] Procedures CARDIOVASCULAR MEDICINE OP FOLLOW UP APPT ORDER James Lindo MD [address] [place] [address] [facility] [address] [place] [address] Referral ID Status Reason Start Date Expiration Date Visits Requested Visits Authorized [id number] Ref Not Required PCP Requested Referral 10/29/2024 04/28/[address] [facility] for referral (narrative)* Outpatient Procedure (Routine) - New Request Specialty Diagnoses / Procedures Referred By Yessy bauer Referred To Contact [facility] Diagnoses Severe aortic stenosis by prior echocardiogram Encounter for preprocedural cardiovascular examination Aortic valve disorder Procedures ECG COMPLETE ECG ROUTINE ECG W/LEAST 12 LDS W/I&R Kacy Jimenez APRN.SHOT BLAST 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 [address] [place] [address] [facility] [address] [facility] [place] [address] Referral ID Status Reason Start Date Expiration Date Visits Requested Visits Authorized [id number] New Request Auto-Generat ed Referral 06/09/2024 06/09/2025 1 1 * Outpatient Procedure (Routine) - New Request Specialty Diagnoses / Procedures Referred By Yessy bauer [facility] Diagnoses Severe aortic stenosis by prior echocardiogram Encounter for preprocedural cardiovascular examination Aortic valve disorder Procedures US CAROTID ARTERIES LARRY VAS LAB DUPLEX SCAN EXTRACRANIAL ART COMPL BI STUDY Kacy Jimenez APRN.CNS [address] [place] [phone] [facility] [place] [address] Referral ID Status Reason Start Date Expiration Date Visits Requested Visits Authorized [id number] New Request Auto-Generat ed Referral 06/09/2024 06/09/2025 [...] 1 AREA 1 DAY IMAGING Kacy Jimenez APRN.SHOT BLAST 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 [address] [place] [address] [facility] Functional [facility] [address] [place] [address] Referral ID Status Reason Start Date Expiration Date Visits Requested Visits Authorized [id number] New Request Auto-Generat ed Referral 06/09/2024 07/09/2025 1 1 * MRI/CT (Routine) - New Request Specialty Diagnoses / Procedures Referred By Yessy bauer Referred To Contact CT IMAGING Diagnoses Severe aortic stenosis by prior echocardiogram Encounter for preprocedural cardiovascular examination Aortic valve disorder Procedures CTA CHEST/ABD/PEL (GATED) W IVCON CT ANGIOGRAPHY CHEST W/CONTRAST/NONCONTRAST CT ANGIO ABD&PLVIS CNTRST MTRL W/WO CNTRST IMGES Kacy Jimenez APRN.SHOT BLAST 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 [address] [place] [address] Ct Imaging [facility] Referral ID Status Reason Start Date Expiration Date Visits Requested Visits Authorized [id number] New Request Auto-Generat ed Referral 06/09/2024 07/09/2025 1 1 * Outpatient Procedure (Routine) - New Request Specialty Diagnoses / Procedures Referred By Contac t Referred [facility] Diagnoses Severe aortic stenosis by prior echocardiogram Encounter for preprocedural cardiovascular examination Aortic valve disorder Procedures LUNG DIFFUSION CAPACITY (DLCO) DIFFUSING CAPACITY Kacy Jimenez APRN.SHOT BLAST 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 [address] [id number] [place] [address] Referral ID Status Reason Start Date Expiration Date Visits Requested Visits Authorized [id number] New Request Auto-Generat ed Referral 06/09/2024 07/09/2025 1 1 * Outpatient Procedure (Routine) - New Request Specialty Diagnoses / Procedures Referred By Contac t Referred [facility] Diagnoses Severe aortic stenosis by prior echocardiogram Encounter for preprocedural cardiovascular examination Aortic valve disorder Procedures SPIROMETRY BASELINE ONLY SPMTRY W/VC EXPIRATORY PEDRO W/WO MXML VOL VNTJ Kacy Jimenez APRN.SHOT BLAST 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 [address] [place] [id number] [place] [address] Referral ID Status Reason Start Date Expiration Date Visits Requested Visits Authorized [id number] New Request Auto-Generat ed Referral 06/09/2024 07/09/[address] [facility] for referral (narrative)* Diagnostic Procedure Only (Routine) - Closed Specialty Diagnoses / Procedures Referred By Contac t Referred To Contact MOLECULAR & FUNCTIONAL IMAGING Diagnoses Severe aortic stenosis by prior echocardiogram Encounter for preprocedural cardiovascular examination Aortic valve disorder Procedures NM SPECT/CT CARDIAC AMYLOID RP LOCLZJ HENRY SPECT W/CT 1 AREA 1 DAY IMAGING Held, Kacy Bañuelos APRN.SHOT BLAST 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 [address] [place] [address] [facility] [address] [place] [phone] Referral ID Status Reason Start Date Expiration Date V isits Requested Visits Authorized [id number] Closed Auto-Generate d Referral 06/09/2024 07/09/[address] [facility] for referral (narrative)* Outpatient Procedure (Routine) - Authorized Specialty Diagnoses / Procedures Referred By Yessy t Referred To Contact [facility] Diagnoses Nonrheumatic aortic valve stenosis Aortic valve disorder Procedures ECG COMPLETE ECG ROUTINE ECG W/LEAST 12 LDS W/I&R Luba Llanes APRN.ADMINISTRATIVE TECH [address] [place] [id number] [place] [address] Referral ID Status Reason Start Date Expiration Date Visits Requested Visits Authorized [id number] Authorized Auto-Generat ed Referral 10/07/2025 1 1 [facility] for referral (narrative)* Outpatient Procedure (Routine) - New Request Specialty Diagnoses / Procedures Referred By Contac t Referred To Contact [facility] Diagnoses Nonrheumatic aortic valve 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) Procedures ECG COMPLETE ECG ROUTINE ECG W/LEAST 12 LDS W/I&[place] [address] [place] [address] [facility] [place] [phone] Referral ID Status Reason Start Date Expiration Date Visits Requested Visits Authorized [id number] New Request Auto-Generat ed Referral 10/29/2024 10/29/2025 1 1 * Outpatient Procedure (Routine) - New Request Specialty Diagnoses / Procedures Referred By Contac t Referred To Contact [facility] Diagnoses Nonrheumatic aortic valve 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) Procedures ECG COMPLETE ECG ROUTINE ECG W/LEAST 12 LDS W/I&[place] [address] [place] [address] [place] [phone] Referral ID Status Reason Start Date Expiration Date Visits Requested Visits Authorized [id number] New Request Auto-Generat ed Referral 10/29/2024 10/29/2025 1 1 * Outpatient Procedure (Routine) - New Request Specialty Diagnoses / Procedures Referred By Contac t Referred To Contact [facility] Diagnoses Nonrheumatic aortic valve 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) Procedures ECHO ECHO TTHRC R-T 2D W/WOM-MODE COMPL SPEC&[place] [address] [place] [address] [place] [address] Referral ID Status Reason Start Date Expiration Date Visits Requested Visits Authorized [id number] New Request Auto-Generat ed Referral 10/29/2024 10/29/[address] [facility] for referral (narrative)* Outpatient Procedure (Routine) - Authorized Specialty Diagnoses / Procedures Referred By Contac t Referred To Contact [facility] Diagnoses PAD (peripheral artery disease) (HCC) Procedures PVR ANK PRESS LARRY VAS LAB NON-INVAS PHYSIOLOGIC STD EXTREMITY ART 2 LEVEL Deng Koenig APRN.JACEY [address] [facility] [address] [place] [address] [place] [address] Referral ID Status Reason Start Date Expiration Date Visits Requested Visits Authorized [id number] Authorized Auto-Generat ed Referral 10/30/2024 10/30/2025 1 1 * Outpatient Procedure (Routine) - Authorized Specialty Diagnoses / Procedures Referred By Yessy t Referred To [facility] Diagnoses PAD (peripheral artery disease) (HCC) Procedures US LEG ARTERIAL PERIPH UNL VAS LAB DUP-SCAN LXTR ART/ARTL BPGS UNI/LMTD STUDY Deng Koenig APRN.ADMINISTRATIVE TECH [address] [facility] [address] [place] [address] [facility] [place] [facility] [place] [address] Referral ID Status Reason Start Date Expiration Date Visits Requested Visits Authorized [id number] Authorized Auto-Generat ed Referral 11/30/2024 10/30/2025 1 1 [facility]No reason for referral information availableWSumma Health Work Phone: Reason for visit Narrative* Diagnostic Procedure Only (Routine) - Closed Specialty Diagnoses / Procedures Referred By Contjorge t Referred To Contact [facility] FUNCTIONAL [facility] Diagnoses Severe aortic stenosis by prior echocardiogram Encounter for preprocedural cardiovascular examination Aortic valve disorder Procedures NM SPECT/CT CARDIAC AMYLOID RP LOCLZJ HENRY SPECT W/CT 1 AREA 1 DAY IMAGING Held, Kacy Bañuelos APRN.SHOT BLAST 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 [address] [place] [address] Molecular [facility] [address] [place] [address] Referral ID Status Reason Start Date Expiration Date V isits Requested Visits Authorized [id number] Closed Auto-Generate d Referral 06/09/2024 07/09/2025 1 1 [facility] Summary Purpose Family History No Family History Records Found Relationship Condition Age at Onset Recorded Date/T pascale father Diabetes mellitus Unknown grandmother Malignant neoplasm of colon Unknown Advance Directives No Advanced Directives Records Found Advance Directive Response Recorded Date/ Time Living Will No July 04 11:30am Power of Oceanographic Meteorologist No July 04, 2021 11:30am Advance Directive Response Recorded Date/ Time Living Will No Viis 7th, 2 021 10:30am Power of Oceanographic Meteorologist No July 04, 2021 10:30am Advance Directive Response Recorded Date/ Time Advance Directives on File No January 14, 2025 10:16am Living Will Yes January 14, 2025 10:38am Do you have a Healthcare Power of Oceanographic Meteorologist? Yes January 14, 2025 10:38am Advance Directive Response Recorded Date/ Time Advance Directives on File No January 14, 2025 10:16am Living Will Yes January 14, 2025 10:38am Do you have a Healthcare Pow er of Oceanographic Meteorologist? Yes January 14, 2025 10:38am Do you have a Healthcare Pow er of Oceanographic Meteorologist? Yes May 07, 2025 7:21am Name of Medical Power of Oceanographic Meteorologist Nicole Zuluaga neighbor May 07, 2025 7:21am Advance Directive Response Recorded Date/ Time Advance Directives on File No January 14, 2025 10:16am Living Will Yes January 14, 2025 10:38am Do you have a Healthcare Pow er of Oceanographic Meteorologist? Yes January 14, 2025 10:38am Do you have a Healthcare Pow er of Oceanographic Meteorologist? Yes May 07, 2025 3:30pm Name of Medical Power of Oceanographic Meteorologist Nicole Zuluaga neighbor May 07, 2025 7:21am Advance Directive Response Recorded Date/ Time Do you have a Healthcare Pow er of Oceanographic Meteorologist? Yes May 07, 2025 3:30pm Name of Medical Power of Oceanographic Meteorologist Nicole Zuluaga neighbor May 07, 2025 7:21am Do you have a Healthcare Pow er of Oceanographic Meteorologist? Yes May 18, 2025 3:50pm Name of Medical Power of Oceanographic Meteorologist Nicole Zuluaga, friend May 18, 2025 3:50pm Chief Complaint and Reason for Visit Chief Complaint 1 Y FU AV STENOSIS Reason for Visit Atherosclerotic hear t disease of nikolai coronary artery without angina pectoris Essential hypertension Nonrheumatic aortic (valve) stenosis Pure hypercholesterolemia Chief Complaint AV STENOSIS Chief Complaint 1 Y FU PREV PFM PT Atherosclerotic heart disease of nikolai coronary a DISCUSS HEART CATH PER MMM Reason for Visit Atherosclerotic hear t disease of nikolai coronary artery without angina pectoris Essential hypertension Nonrheumatic aortic (valve) stenosis Pure hypercholesterolemia Atherosclerotic heart disease of nikolai coronary artery without angina pectoris Essential hypertension [...] L FEMER June 03, 2025 7:5 4am ANEMIA POSITIVE STOOL June 23, 2025 10:57am Reason for Referral Specialty Diagnoses / Procedures Referred By Contac t Referred To Contact Cardiology Diagnoses Aortic valve stenosis, etiology of cardiac valve disease unspecified Procedures CONSULT TO CARDIOLOGY OFFICE/OUTPATIENT [facility] 60 MINUTES Berta Rich PA-C [address] [address] [facility] [address] [place] [address] Referral ID Status Reason Start Date Expiration Date Visits Requested Visits Authorized [id number] Authorized PCP Requested Referral 04/23/2024 04/16/2025 1 1 Specialty Diagnoses / Procedures Referred By Contac t Referred To Contact Diagnoses Aortic valve stenosis, etiology of cardiac valve disease unspecified Procedures CONSULT TO INTERVENTIONAL CARDIOLOGY OFFICE/OUTPATIENT [facility] 60 MINUTES Azul Madrigal APRN.ADMINISTRATIVE TECH [address] [place] [address] Referral ID Status Reason Start Date Expiration Date Visits Requested Visits Authorized [id number] Authorized PCP Requested Referral 04/21/2024 04/21/2025 1 1 Specialty Diagnoses / Procedures Referred By Contac t Referred To Contact [facility] Procedures CARDIOVASCULAR MEDICINE [place] [address] [place] [address] [facility] [place] [facility] [place] [address] Referral ID Status Reason Start Date Expiration Date Visits Requested Visits Authorized [id number] Ref Not Required PCP Requested Referral 08/31/2024 08/31/2025 1 1 Specialty Diagnoses / Procedures Referred By Contac t Referred To Contact CT IMAGING Diagnoses Severe aortic stenosis by prior echocardiogram Encounter for preprocedural cardiovascular examination Aortic valve disorder Procedures CTA CHEST/ABD/PEL (GATED) W IVCON CT ANGIOGRAPHY CHEST W/CONTRAST/NONCONTRAST CT ANGIO ABD&PLVIS CNTRST MTRL W/WO CNTRST IMGES Kacy Jimenez TEST WORKER.SHOT BLAST 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 [address] [place] [address] [place] [address] Referral ID Status Reason Start Date Expiration Date V isits Requested Visits Authorized [id number] Closed Auto-Generate d Referral 08/12/2024 10/11/2024 1 1 Specialty Diagnoses / Procedures Referred By Contac t Referred To Contact [facility] Procedures CARDIOVASCULAR MEDICINE OP FOLLOW UP APPT ORDER Luba Llanes APRN.ADMINISTRATIVE TECH [address] [place] [address] [facility] [address] [address] Referral ID Status Reason Start Date Expiration Date Visits Requested Visits Authorized [id number] Ref Not Required PCP Requested Referral 09/09/2025 1 1 Specialty Diagnoses / Procedures Referred By Contac t Referred To Contact [facility] Procedures CARDIOVASCULAR MEDICINE OP FOLLOW UP APPT ORDER Kacy Jimenez APRN.SHOT BLAST 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 [address] [place] [address] [facility] [address] [address] Referral ID Status Reason Start Date Expiration Date Visits Requested Visits Authorized [id number] Authorized PCP Requested Referral 10/29/2024 10/29/2025 1 1 Specialty Diagnoses / Procedures Referred By Contac t Referred To Contact [facility] Procedures CARDIOVASCULAR MEDICINE OP FOLLOW UP APPT ORDER Deng Koenig, TEST WORKER.ADMINISTRATIVE TECH [address] [facility] [address] [place] [address] [facility] [place] [address] [place] [address] Referral ID Status Reason Start Date Expiration Date Visits Requested Visits Authorized [id number] Authorized PCP Requested Referral 11/10/2024 11/10/2025 1 1 Additional Source Comments INFORMATION SOURCE (unrecogn ized section and content) DATE CREATED AUTHOR 04/18/2018 [facility] DATE CREATED AUTHOR AUTHOR'S ORGANIZ ATION 04/18/2018 [facility] DATE CREATED AUTHOR AUTHOR'S ORGANIZ ATION 03/12/2025 [facility] DATE CREATED AUTHOR AUTHOR'S ORGANIZ ATION 06/29/2025 [facility] Goals (unrecognized section and content) Goals may [...] Primary Care Provider, Referring Provider Active Eliana DOW, PA Attending Provider Active Team Status: Active Member Role Status Dates Dr. Eh Huddleston MD Primary Care Provider Active Dr. Richy Coronado MD Attending Provider, Referring Pro vider Active Team Status: Inactive Member Role Status Dates Dr. Eh Huddleston MD Primary Care Provider Active Eliana DOW, PA Attending Provider, Referr ing Provider Active 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 Specialty Start Date End Date Eh Huddleston Chi PCP - General Gerontology 12/27/17 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 Specialty Start Date End Date Eh Huddleston Chi PCP - General Gerontology 12/27/17 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 Specialty Start Date End Date Eh Huddleston Chi PCP - General Gerontology 12/27/17 03/25/24 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 Specialty Start Date End Date Eh Huddleston Chi [address] [place], [place] [address] PCP - General Gerontology 08/31/24 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 Specialty Start Date End Date Eh Huddleston Chi [address] [place] [address] PCP - General Gerontology 08/31/24 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 Specialty Start Date End Date Eh Huddleston Chi [address] [place] [address] PCP - General Gerontology 08/31/24 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 Specialty Start Date End Date Eh Huddleston Chi [address] [place] [address] PCP - General Gerontology 08/31/24 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 Specialty Start Date End Date Eh Huddleston Chi [address] [place] [address] PCP - General Gerontology 08/31/24 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 Specialty Start Date End Date Eh Huddleston Chi [address] [place] [address] PCP - General Gerontology 08/31/24 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 Specialty Start Date End Date Eh Huddleston Chi [address] [place] [address] PCP - General Gerontology 08/31/24 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 Specialty Start Date End Date Eh Huddleston Chi [address] [place] [address] PCP - General Gerontology 08/31/24 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 Specialty Start Date End Date Eh Huddleston Chi [address] [place], [place] [address] PCP - General Gerontology 08/31/24 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 Specialty Start Date End Date Eh Huddleston Chi [address] [place] [address] PCP - General Gerontology 08/31/24 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 Start Date End Date Eh Huddleston Chi [address] [place] [address] PCP - General Gerontology 08/31/24 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 Specialty Start Date End Date Eh Huddleston Chi [address] [place] [address] PCP - General Gerontology 08/31/24 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 Start Date End Date Eh Huddleston Chi [address] [place], [place] [address] PCP - General Gerontology 08/31/24 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 Start Date End Date Eh Huddleston Chi [address] [place], [place] [address] PCP - General Gerontology 08/31/24 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 Start Date End Date Eh Huddleston Chi [address] [place] [address] PCP - General Gerontology 08/31/24 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 Eh Huddleston MD Primary Care Provider Active Start: January 20, 2025 RUSSELL DONALD Attending Provider Active Start: [facility] 2024 RUSSELL DONALD Referring Provider Active Start: [facility] 2024 Team Status: Inactive Member Role Status Dates Dr. 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 Eh Huddleston MD Primary Care Provider Active Start: February 24, 2025 End: February 24, 2025 RUSSELL DONALD Attending Provider Active Start: [facility] 2024 End: February 24, 2025 RUSSELL DONALD Referring Provider Active Start: [facility] 2024 End: February 24, 2025 Team Status: Inactive Member Role Status Dates Dr. Eh Huddleston MD Primary Care Provider Active Start: March 24, 2025 End: March 27, 2025 RUSSELL DONALD Attending Provider Active Start: [facility] 2024 End: March 27, 2025 RUSSELL DONALD Referring Provider Active Start: [facility] 2024 End: March 27, 2025 Team Status: [...] 2025 RUSSELL DONALD Attending Provider Active Start: [facility] 2024 RUSSELL DONALD Referring Provider Active Start: [facility] 2024 Team Status: Active Member Role/Relationship Status Dates Dr. Eh Huddleston MD Primary Care Provider Active Team Status: Inactive Member Role/Relationship Status Dates Dr. Eh Huddleston MD Primary Care Provider Active Start: January 14, 2025 End: January 14, 2025 RUSSELL DONALD Attending Provider Active Start: [facility] 2024 End: January 14, 2025 RUSSELL DONALD Referring Provider Active Start: [facility] 2024 End: January 14, 2025 Team Status: Inactive Member Role/Relationship Status Dates Dr. Eh Huddleston MD Primary Care Provider Active Start: January 25, 2025 End: January 25, 2025 RUSSELL DONALD Attending Provider Active Start: [facility] 2024 End: January 25, 2025 RUSSELL DONALD Referring Provider Active Start: [facility] 2024 End: January 25, 2025 Team Status: Inactive Member Role/Relationship Status Dates Dr. Eh Huddleston MD Primary Care Provider Active Start: February 24, 2025 End: February 24, 2025 RUSSELL DONALD Attending Provider Active Start: [facility] 2024 End: February 24, 2025 RUSSELL DONALD Referring Provider Active Start: [facility] 2024 End: February 24, 2025 Team Status: Inactive Member Role/Relationship Status Dates Dr. Eh Huddleston MD Primary Care Provider Active Start: March 24, 2025 End: March 27, 2025 RUSSELL DONALD Attending Provider Active Start: [facility] 2024 End: March 27, 2025 RUSSELL DONALD Referring Provider Active Start: [facility] 2024 End: March 27, 2025 Team Status: [...] 2025 RUSSELL DONALD Attending Provider Active Start: [place] 2024 End: April 26, 2025 RUSSELL DONALD Referring Provider Active Start: [place] 2024 End: April 26, 2025 Team Status: Active Member Role/Relationship Status Dates Dr. Eh Huddleston MD Primary Care Provider Active Start: April 28, 2025 RUSSELL DONALD Attending Provider Active Start: [facility] 2024 RUSSELL DONALD Referring Provider Active Start: [place] 2024 Team Status: Active Member Role/Relationship [...] May 08, 2025 Dr. José Manuel Guzman DO Emergency [...] 12, 2025 Dr. José Manuel Guzman , Emergency Provider Activ e Start: May 12, 2025 Dr. Sourav Casiano , Admit Provider Active S tart: May 12, 2025 Dr. Sourav Casiano , Other Provider Active S tart: May 12, [...] May 13, 2025 Dr. Sourav Casiano , Admit Provider Active S tart: May 13, [...] Activ e Start: May 14, 2025 Dr. Soruav Casiano , Admit Provider Active S tart: May 14, [...] 2025 RUSSELL DONALD Attending Provider Active Start: [facility] [place] 2024 End: February 24, 2025 RUSSELL DONALD Referring Provider Active Start: [facility] 2024 End: February 24, 2025 Team Status: [...] 2025 RUSSELL DONALD Referring Provider Active Start: [place] 2024 End: April 26, 2025 Team Status: Inactive Member Role/Relationship Status Dates Dr. Eh Huddleston MD Primary Care Provider Active Start: April 28, 2025 End: May 27, 2025 RUSSELL DONALD Attending Provider Active Start: ly 2024 End: May 27, 2025 RUSSELL DONALD Referring Provider Active Start: Ju [place] 2024 End: May 27, 2025 Team [...] Nathan Heredia MD Other Provider Active Start: Padmini ly 2024 End: May 14, 2025 Dr. Des [...] 2025 End: May 14, 2025 Dr. Piero Ricahrd MD Other Provider Active Start: May 07, [...] Provider Active Start: May 09, 2025 Dr. Joés Manuel Guzman , DO Emergency Provider Activ [...] Start: May 11, 2025 Dr. Sourav Casiano DO Other Provider [...] May 13, 2025 Dr. Sourav Casiano , Admit Provider Active S tart: May 13, 2025 Dr. Sourav Casiano , Other Provider Active S tart: May 13, 2025 Dr. Manny Murdock MD Attending Provider Active Start: May 13, 2025 Dr. Manny Murdock MD Other Provider Active Sta rt: May 13, 2025 Dr. Santhosh Livingston , Other Provider Active Start: May 13, 2025 [...] Active Start : May 13, 20[address]. 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 Eh Huddleston MD Primary Care Provider Active Start: June 10, 2025 Dr. Vimal SALMERON MD Attending Provider Active Start: June 10, 2025 Team Status: Active Member Role/Relationship Status Dates Dr. Eh Huddleston MD Primary Care Provider Active Start: June 16, 2025 Nereyda SALMERON MD Attending Provider Active Start: June 16, 2025 Team Status: Active Member Role/Relationship Status Dates Dr. Eh Huddleston MD Primary Care Provider Active Start: June 17, 2025 Nereyda SALMERON MD Attending Provider Active Start: June 17, 2025 Team Status: Inactive Member Role/Relationship Status Dates Dr. Eh Huddleston MD Primary Care Provider Active Start: June 23, 2025 End: June 23, 2025 Dr. Eh Huddleston MD Referring Provider Active Start: June 23, 2025 End: June 23, 2025 VICTOR M Hanna Attending Provider Active Start: June 23, 2025 End: June 23, 2025 Source Comments (unrecognize d section and content) In the event this informatio n is protected by the Federal Confidentiality of Alcohol and Drug Abuse Patient Records regulations: The Federal rules restrict any use of the information to criminally investigate or prosecute any alcohol or drug abuse patient.[facility] the event this information is protected by the Federal Confidentiality of Alcohol and Drug Abuse Patient Records regulations: The Federal rules restrict any use of the information to criminally investigate or prosecute any alcohol or drug abuse patient.[facility] the event this information is protected by the Federal Confidentiality of Alcohol and Drug Abuse Patient Records regulations: The Federal rules restrict any use of the information to criminally investigate or prosecute any alcohol or drug abuse patient.[facility] the event this information is protected by the Federal Confidentiality of Alcohol and Drug Abuse Patient Records regulations: The Federal rules restrict any use of the information to criminally investigate or prosecute any alcohol or drug abuse patient.[facility] the event this information is protected by the Federal Confidentiality of Alcohol and Drug Abuse Patient Records regulations: The Federal rules restrict any use of the information to criminally investigate or prosecute any alcohol or drug abuse patient.[facility] the event this information is protected by the Federal Confidentiality of Alcohol and Drug Abuse Patient Records regulations: The Federal rules restrict any use of the information to criminally investigate or prosecute any alcohol or drug abuse patient.[facility] the event this information is protected by the Federal Confidentiality of Alcohol and Drug Abuse Patient Records regulations: The Federal rules restrict any use of the information to criminally investigate or prosecute any alcohol or drug abuse patient.[facility] the event this information is protected by the Federal Confidentiality of Alcohol and Drug Abuse Patient Records regulations: The Federal rules restrict any use of the information to criminally investigate or prosecute any alcohol or drug abuse patient.[facility] the event this information is protected by the Federal Confidentiality of Alcohol and Drug Abuse Patient Records regulations: The Federal rules restrict any use of the information to criminally investigate or prosecute any alcohol or drug abuse patient.[facility] the event this information is protected by the Federal Confidentiality of Alcohol and Drug Abuse Patient Records regulations: The Federal rules restrict any use of the information to criminally investigate or prosecute any alcohol or drug abuse patient.[facility] the event this information is protected by the Federal Confidentiality of Alcohol and Drug Abuse Patient Records regulations: The Federal rules restrict any use of the information to criminally investigate or prosecute any alcohol or drug abuse patient.[facility] the event this information is protected by the Federal Confidentiality of Alcohol and Drug Abuse Patient Records regulations: The Federal rules restrict any use of the information to criminally investigate or prosecute any alcohol or drug abuse patient.[facility] the event this information is protected by the Federal Confidentiality of Alcohol and Drug Abuse Patient Records regulations: The Federal rules restrict any use of the information to criminally investigate or prosecute any alcohol or drug abuse patient.[facility] the event this information is protected by the Federal Confidentiality of Alcohol and Drug Abuse Patient Records regulations: The Federal rules restrict any use of the information to criminally investigate or prosecute any alcohol or drug abuse patient.[facility] the event this information is protected by the Federal Confidentiality of Alcohol and Drug Abuse Patient Records regulations: The Federal rules restrict any use of the information to criminally investigate or prosecute any alcohol or drug abuse patient.[facility] the event this information is protected by the Federal Confidentiality of Alcohol and Drug Abuse Patient Records regulations: The Federal rules restrict any use of the information to criminally investigate or prosecute any alcohol or drug abuse patient.[facility] the event this information is protected by the Federal Confidentiality of Alcohol and Drug Abuse Patient Records regulations: The Federal rules restrict any use of the information to criminally investigate or prosecute any alcohol or drug abuse patient.[facility]burgIn the event this information is protected by the Federal Confidentiality of Alcohol and Drug Abuse Patient Records regulations: The Federal rules restrict any use of the information to criminally investigate or prosecute any alcohol or drug abuse patient.[facility] the event this information is protected by the Federal Confidentiality of Alcohol and Drug Abuse Patient Records regulations: The Federal rules restrict any use of the information to criminally investigate or prosecute any alcohol or drug abuse patient.[facility] the event this information is protected by the Federal Confidentiality of Alcohol and Drug Abuse Patient Records regulations: The Federal rules restrict any use of the information to criminally investigate or prosecute any alcohol or drug abuse patient.[facility] the event this information is protected by the Federal Confidentiality of Alcohol and Drug Abuse Patient Records regulations: The Federal rules restrict any use of the information to criminally investigate or prosecute any alcohol or drug abuse patient.[facility] the event this information is protected by the Federal Confidentiality of Alcohol and Drug Abuse Patient Records regulations: The Federal rules restrict any use of the information to criminally investigate or prosecute any alcohol or drug abuse patient.[facility] the event this information is protected by the Federal Confidentiality of Alcohol and Drug Abuse Patient Records regulations: The Federal rules restrict any use of the information to criminally investigate or prosecute any alcohol or drug abuse patient.[facility] the event this information is protected by the Federal Confidentiality of Alcohol and Drug Abuse Patient Records regulations: The Federal rules restrict any use of the information to criminally investigate or prosecute any alcohol or drug abuse patient.[facility] the event this information is protected by the Federal Confidentiality of Alcohol and Drug Abuse Patient Records regulations: The Federal rules restrict any use of the information to criminally investigate or prosecute any alcohol or drug abuse patient.[facility] the event this information is protected by the Federal Confidentiality of Alcohol and Drug Abuse Patient Records regulations: The Federal rules restrict any use of the information to criminally investigate or prosecute any alcohol or drug abuse patient.[facility] the event this information is protected by the Federal Confidentiality of Alcohol and Drug Abuse Patient Records regulations: The Federal rules restrict any use of the information to criminally investigate or prosecute any alcohol or drug abuse patient.[facility] the event this information is protected by the Federal Confidentiality of Alcohol and Drug Abuse Patient Records regulations: The Federal rules restrict any use of the information to criminally investigate or prosecute any alcohol or drug abuse patient.[facility] the event this information is protected by the Federal Confidentiality of Alcohol and Drug Abuse Patient Records regulations: The Federal rules restrict any use of the information to criminally investigate or prosecute any alcohol or drug abuse patient.[facility] the event this information is protected by the Federal Confidentiality of Alcohol and Drug Abuse Patient Records regulations: The Federal rules restrict any use of the information to criminally investigate or prosecute any alcohol or drug abuse patient.[facility] the event this information is protected by the Federal Confidentiality of Alcohol and Drug Abuse Patient Records regulations: The Federal rules restrict any use of the information to criminally investigate or prosecute any alcohol or drug abuse patient.[facility] the event this information is protected by the Federal Confidentiality of Alcohol and Drug Abuse Patient Records regulations: The Federal rules restrict any use of the information to criminally investigate or prosecute any alcohol or drug abuse patient.[facility] the event this information is protected by the Federal Confidentiality of Alcohol and Drug Abuse Patient Records regulations: The Federal rules restrict any use of the information to criminally investigate or prosecute any alcohol or drug abuse patient.[facility] the event this information is protected by the Federal Confidentiality of Alcohol and Drug Abuse Patient Records regulations: The Federal rules restrict any use of the information to criminally investigate or prosecute any alcohol or drug abuse patient.[facility] the event this information is protected by the Federal Confidentiality of Alcohol and Drug Abuse Patient Records regulations: The Federal rules restrict any use of the information to criminally investigate or prosecute any alcohol or drug abuse patient.[facility] the event this information is protected by the Federal Confidentiality of Alcohol and Drug Abuse Patient Records regulations: The Federal rules restrict any use of the information to criminally investigate or prosecute any alcohol or drug abuse patient.[facility] the event this information is protected by the Federal Confidentiality of Alcohol and Drug Abuse Patient Records regulations: The Federal rules restrict any use of the information to criminally investigate or prosecute any alcohol or drug abuse patient.[facility] the event this information is protected by the Federal Confidentiality of Alcohol and Drug Abuse Patient Records regulations: The Federal rules restrict any use of the information to criminally investigate or prosecute any alcohol or drug abuse patient.[facility]In the event this information is protected by the Federal Confidentiality of Alcohol and Drug Abuse Patient Records regulations: The Federal rules restrict any use of the information to criminally investigate or prosecute any alcohol or drug abuse patient.[facility]In the event this information is protected by the Federal Confidentiality of Alcohol and Drug Abuse Patient Records regulations: The Federal rules restrict any use of the information to criminally investigate or prosecute any alcohol or drug abuse patient.[facility]In the event this information is protected by the Federal Confidentiality of Alcohol and Drug Abuse Patient Records regulations: The Federal rules restrict any use of the information to criminally investigate or prosecute any alcohol or drug abuse patient.[facility]In the event this information is protected by the Federal Confidentiality of Alcohol and Drug Abuse Patient Records regulations: The Federal rules restrict any use of the information to criminally investigate or prosecute any alcohol or drug abuse patient.[facility]In the event this information is protected by the Federal Confidentiality of Alcohol and Drug Abuse Patient Records regulations: The Federal rules restrict any use of the information to criminally investigate or prosecute any alcohol or drug abuse patient.[facility] the event this information is protected by the Federal Confidentiality of Alcohol and Drug Abuse Patient Records regulations: The Federal rules restrict any use of the information to criminally investigate or prosecute any alcohol or drug abuse patient.[facility]In the event this information is protected by the Federal Confidentiality of Alcohol and Drug Abuse Patient Records regulations: The Federal rules restrict any use of the information to criminally investigate or prosecute any alcohol or drug abuse patient.[facility]In the event this information is protected by the Federal Confidentiality of Alcohol and Drug Abuse Patient Records regulations: The Federal rules restrict any use of the information to criminally investigate or prosecute any alcohol or drug abuse patient.[facility]In the event this information is protected by the Federal Confidentiality of Alcohol and Drug Abuse Patient Records regulations: The Federal rules restrict any use of the information to criminally investigate or prosecute any alcohol or drug abuse patient.[facility]In the event this information is protected by the Federal Confidentiality of Alcohol and Drug Abuse Patient Records regulations: The Federal rules restrict any use of the information to criminally investigate or prosecute any alcohol or drug abuse patient.[facility] the event this information is protected by the Federal Confidentiality of Alcohol and Drug Abuse Patient Records regulations: The Federal rules restrict any use of the information to criminally investigate or prosecute any alcohol or drug abuse patient.[facility]In the event this information is protected by the Federal Confidentiality of Alcohol and Drug Abuse Patient Records regulations: The Federal rules restrict any use of the information to criminally investigate or prosecute any alcohol or drug abuse patient.[facility] the event this information is protected by the Federal Confidentiality of Alcohol and Drug Abuse Patient Records regulations: The Federal rules restrict any use of the information to criminally investigate or prosecute any alcohol or drug abuse patient.[facility] Reason for Visit (unrecogniz ed section and content) Reason Comments Pre-Op Exam Intraocular lens Cas culations Reason Comments Severe Cataract eval Reason Comments Request Outside Medical Records Reason Comments Patient Question Reason Comments Consult Reason Comments Schedule Surgery Courtesy call 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 Reason Comments Appointment Cardiology schedulin g to discuss TAVR TAVR Reason Comments Post-op (Ophthalmology) Left Eye Reason Comments Appointment Reason Comments Appointment [employer] appt 04/28/2024 Specialty Diagnoses / Procedures Referred By Contac t Referred To Contact Cardiology Diagnoses Aortic valve stenosis, etiology of cardiac valve disease unspecified Procedures CONSULT TO CARDIOLOGY OFFICE/OUTPATIENT [facility] 60 MINUTES Berta Rich PA-C [address] [address] [facility] [address] [facility] [place] [address] Referral ID Status Reason Start Date Expiration Date V isits Requested Visits Authorized [id number] Closed PCP Requested Referral 04/23/2024 04/16/2025 1 1 Reason Comments Pseudophakia Follow Up Reason Comments TAVR referral Reason Comments New Patient Reason Comments Radiology CT Specialty Diagnoses / Procedures Referred By Contac t Referred To Contact CT IMAGING Diagnoses Severe aortic stenosis by prior echocardiogram Encounter for preprocedural cardiovascular examination Aortic valve disorder Procedures CTA CHEST/ABD/PEL (GATED) W IVCON CT ANGIOGRAPHY CHEST W/CONTRAST/NONCONTRAST CT ANGIO ABD&PLVIS CNTRST MTRL W/WO CNTRST IMGES Kacy Jimenez, TEST WORKER.[employer] 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 [address] [place] [address] [facility] [place] [address] Referral ID Status Reason Start Date Expiration Date V isits Requested Visits Authorized [id number] Closed Auto-Generate d Referral 08/12/2024 10/11/2024 1 1 Reason Comments Patient Education Reason Comments Spirometry Specialty Diagnoses / Procedures Referred By Contac t Referred To Contact [facility] Diagnoses Severe aortic stenosis by prior echocardiogram Encounter for preprocedural cardiovascular examination Aortic valve disorder Procedures SPIROMETRY BASELINE ONLY SPMTRY W/VC EXPIRATORY PEDRO W/WO MXML VOL VNTJ Kacy Jimeenz, TEST WORKER.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 BLAST 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 [address] [id number] [facility] [place] [address] [place] [address] Referral ID Status Reason Start Date Expiration Date V isits Requested Visits Authorized [id number] Closed Auto-Generate d Referral 06/09/2024 07/09/2025 1 1 Specialty Diagnoses / Procedures Referred By Contac t Referred To [facility] RESPIRATORY [facility] Diagnoses Severe aortic stenosis by prior echocardiogram Encounter for preprocedural cardiovascular examination Aortic valve disorder Procedures LUNG DIFFUSION CAPACITY (DLCO) DIFFUSING CAPACITY Kacy Jimenez, TEST WORKER.SHOT BLAST 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 [address] [place] [address] [facility] [place] [address] [place], [place] [id number] Referral ID Status Reason Start Date Expiration Date V isits Requested Visits Authorized [id number] Closed Auto-Generate d Referral 06/09/2024 07/09/2025 1 1 Reason Comments Radiology NM Specialty Diagnoses / Procedures Referred By Contac t Referred To Contact MOLEC[facility] FUNCTIONAL IMAGING Diagnoses Severe aortic stenosis by prior echocardiogram Encounter for preprocedural cardiovascular examination Aortic valve disorder Procedures NM SPECT/CT CARDIAC AMYLOID RP LOCLZJ HENRY SPECT W/CT 1 AREA 1 DAY IMAGING Held, Kacy Bañuelos APRN.SHOT BLAST 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 [address] [id number] Molecular & Functional Imaging [address] [id number] Referral ID Status Reason Start Date Expiration Date V isits Requested Visits Authorized [id number] Closed Auto-Generate d Referral 06/09/2024 07/09/2025 1 [...] Essential (primary) hypertension 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 [address] Phone: tel: [id number] Referral ID Status Reason Start Date Expiration Date V isits Requested Visits Authorized [id number] Closed Auto-Generate d Referral 01/06/2025 03/07/2025 1 [...] BE BASED ON THE PRIMARY CLINICAL RECORDS. [employer] provides no warranty or guarantee of the accuracy or completeness of information in this document.
[2025-07-01 08:02] LABS: Hematocrit 33.8 % (37-47); Hemoglobin 11.3 g/dL (12.0-15.0); Immature Granulocytes Count 0.010 X10^3/uL (0.0-0.0); Mean Corp Hgb Conc 33.4 g/dL (32-36); Mean Corpuscular Volume 91.8 fL (81-99); Mean Platelet Vol. 9.9 fl (6.2-12.0); NRBC Flagged by Analyzer 0 % (0-5); Platelet Count 182 K/mm3 (150-450); RBC Distribution Width CV 13.6 % (11.6-14.6); RBC Distribution Width SD 46.6 fl (35.1-43.9); Red Blood Count 3.68 M/mm3 (4.2-5.4); White Blood Count 6.0 K/mm3 (4.4-11.0)
[2025-07-01 08:17] LABS: Anion Gap 9 (5-15); BUN 22 mg/dL (4-19); BUN/Creat Ratio 34.2 RATIO (10-20); Calcium,Total 9.1 mg/dL (7.6-11.0); Carbon Dioxide 26.5 mmol/L (21.0-32.0); Chloride 102 mmol/L (98-108); Glucose 99 mg/dL (70-99); Potassium 4.1 mmol/L (3.3-5.1)
== END ==
LOC: OLS.WHLTCC 05:00
PROVIDERS: PCP Family Medicine Geriatric Medicine; Visit Provider Internal Medicine
DX: D64.9 Anemia, unspecified (principal); I25.10 Atherosclerotic heart disease of native coronary artery without angina pectoris
CPT/HCPCS: 36415; 80048; 85025

== ENCOUNTER → 2025-07-08 05:00 | Outpatient (REF) | payer MEDICARE, SELFPAY ==
[2025-04-07 07:10] VITALS: BMI 28.1
[2025-07-08 09:27] LABS: Hematocrit 32.7 % (37-47); Hemoglobin 10.9 g/dL (12.0-15.0); Immature Granulocytes Count 0.010 X10^3/uL (0.0-0.0); Mean Corp Hgb Conc 33.3 g/dL (32-36); Mean Corpuscular Volume 91.6 fL (81-99); Mean Platelet Vol. 10.2 fl (6.2-12.0); NRBC Flagged by Analyzer 0 % (0-5); Platelet Count 194 K/mm3 (150-450); RBC Distribution Width CV 13.6 % (11.6-14.6); RBC Distribution Width SD 46.4 fl (35.1-43.9); Red Blood Count 3.57 M/mm3 (4.2-5.4); White Blood Count 5.2 K/mm3 (4.4-11.0)
[2025-07-08 09:40] LABS: Anion Gap 9 (5-15); BUN 16 mg/dL (4-19); BUN/Creat Ratio 24.1 RATIO (10-20); Calcium,Total 9.0 mg/dL (7.6-11.0); Carbon Dioxide 26.1 mmol/L (21.0-32.0); Chloride 103 mmol/L (98-108); Glucose 102 mg/dL (70-99); Potassium 3.8 mmol/L (3.3-5.1)
== END ==
LOC: OLS.WHLTCC 05:00
PROVIDERS: PCP Family Medicine Geriatric Medicine; Visit Provider Internal Medicine
DX: I25.10 Atherosclerotic heart disease of native coronary artery without angina pectoris (principal); S72.402D Unspecified fracture of lower end of left femur, subsequent encounter for closed fracture with routine healing; M62.81 Muscle weakness (generalized); D64.9 Anemia, unspecified
CPT/HCPCS: 36415; 80048; 85025

== ENCOUNTER → 2025-07-15 04:00 | Outpatient (REF) | payer MEDICARE, SELFPAY ==
[2025-04-07 07:10] VITALS: BMI 28.1
[2025-07-15 08:31] LABS: Hematocrit 32.2 % (37-47); Hemoglobin 10.8 g/dL (12.0-15.0); Immature Granulocytes Count 0.010 X10^3/uL (0.0-0.0); Mean Corp Hgb Conc 33.5 g/dL (32-36); Mean Corpuscular Volume 92.3 fL (81-99); Mean Platelet Vol. 10.4 fl (6.2-12.0); NRBC Flagged by Analyzer 0 % (0-5); Platelet Count 171 K/mm3 (150-450); RBC Distribution Width CV 13.8 % (11.6-14.6); RBC Distribution Width SD 46.5 fl (35.1-43.9); Red Blood Count 3.49 M/mm3 (4.2-5.4); White Blood Count 5.1 K/mm3 (4.4-11.0)
[2025-07-15 08:50] LABS: Anion Gap 11 (5-15); BUN 22 mg/dL (4-19); BUN/Creat Ratio 32.2 RATIO (10-20); Calcium,Total 9.0 mg/dL (7.6-11.0); Carbon Dioxide 24.7 mmol/L (21.0-32.0); Chloride 102 mmol/L (98-108); Glucose 98 mg/dL (70-99); Potassium 3.8 mmol/L (3.3-5.1)
== END ==
LOC: OLS.WHLTCC 04:00
PROVIDERS: PCP Family Medicine Geriatric Medicine; Referring Provider Internal Medicine; Visit Provider Internal Medicine
DX: I25.10 Atherosclerotic heart disease of native coronary artery without angina pectoris (principal); S72.402D Unspecified fracture of lower end of left femur, subsequent encounter for closed fracture with routine healing; M62.81 Muscle weakness (generalized); D64.9 Anemia, unspecified
CPT/HCPCS: 36415; 80048; 85025

== ENCOUNTER → 2025-07-22 05:40 | Outpatient (REF) | payer MEDICARE, SELFPAY ==
[2025-04-07 07:10] VITALS: BMI 28.1
[2025-07-22 09:34] LABS: Hematocrit 31.8 % (37-47); Hemoglobin 10.6 g/dL (12.0-15.0); Immature Granulocytes Count 0.010 X10^3/uL (0.0-0.0); Mean Corp Hgb Conc 33.3 g/dL (32-36); Mean Corpuscular Volume 91.9 fL (81-99); Mean Platelet Vol. 10.4 fl (6.2-12.0); NRBC Flagged by Analyzer 0 % (0-5); Platelet Count 158 K/mm3 (150-450); RBC Distribution Width CV 13.9 % (11.6-14.6); RBC Distribution Width SD 46.5 fl (35.1-43.9); Red Blood Count 3.46 M/mm3 (4.2-5.4); White Blood Count 5.1 K/mm3 (4.4-11.0)
[2025-07-22 09:51] LABS: Anion Gap 17 (5-15); BUN 17 mg/dL (4-19); BUN/Creat Ratio 22.7 RATIO (10-20); Calcium,Total 8.4 mg/dL (7.6-11.0); Carbon Dioxide 17.7 mmol/L (21.0-32.0); Chloride 104 mmol/L (98-108); Glucose 83 mg/dL (70-99); Potassium 4.3 mmol/L (3.3-5.1)
== END ==
LOC: OLS.WHLTCC 05:40
PROVIDERS: PCP Family Medicine Geriatric Medicine; Visit Provider Internal Medicine
DX: I25.10 Atherosclerotic heart disease of native coronary artery without angina pectoris (principal); S72.402D Unspecified fracture of lower end of left femur, subsequent encounter for closed fracture with routine healing; M62.81 Muscle weakness (generalized); D64.9 Anemia, unspecified
CPT/HCPCS: 36415; 80048; 85025

== ENCOUNTER → 2025-07-29 05:20 | Outpatient (REF) | payer MEDICARE, SELFPAY ==
[2025-04-07 07:10] VITALS: BMI 28.1
[2025-07-29 09:05] LABS: Hematocrit 33.2 % (37-47); Hemoglobin 11.2 g/dL (12.0-15.0); Immature Granulocytes Count 0.010 X10^3/uL (0.0-0.0); Mean Corp Hgb Conc 33.7 g/dL (32-36); Mean Corpuscular Volume 90.7 fL (81-99); Mean Platelet Vol. 10.2 fl (6.2-12.0); NRBC Flagged by Analyzer 0 % (0-5); Platelet Count 170 K/mm3 (150-450); RBC Distribution Width CV 13.9 % (11.6-14.6); RBC Distribution Width SD 46.7 fl (35.1-43.9); Red Blood Count 3.66 M/mm3 (4.2-5.4); White Blood Count 5.4 K/mm3 (4.4-11.0)
[2025-07-29 09:11] LABS: Anion Gap 11 (5-15); BUN 22 mg/dL (4-19); BUN/Creat Ratio 30.2 RATIO (10-20); Calcium,Total 9.3 mg/dL (7.6-11.0); Carbon Dioxide 24.6 mmol/L (21.0-32.0); Chloride 104 mmol/L (98-108); Glucose 100 mg/dL (70-99); Potassium 3.8 mmol/L (3.3-5.1)
== END ==
LOC: OLS.WHLTCC 05:20
PROVIDERS: PCP Family Medicine Geriatric Medicine; Visit Provider Internal Medicine
DX: I25.10 Atherosclerotic heart disease of native coronary artery without angina pectoris (principal); S72.401D Unspecified fracture of lower end of right femur, subsequent encounter for closed fracture with routine healing; M62.81 Muscle weakness (generalized); D64.9 Anemia, unspecified
CPT/HCPCS: 36415; 80048; 85025

== ENCOUNTER → 2025-08-12 05:00 | Outpatient (REF) | payer MEDICARE, SELFPAY ==
[2025-04-07 07:10] VITALS: BMI 28.1
[2025-08-12 06:39] LABS: Hematocrit 34.8 % (37-47); Hemoglobin 11.5 g/dL (12.0-15.0); Immature Granulocytes Count 0.000 X10^3/uL (0.0-0.0); Mean Corp Hgb Conc 33.0 g/dL (32-36); Mean Corpuscular Volume 90.9 fL (81-99); Mean Platelet Vol. 10.7 fl (6.2-12.0); NRBC Flagged by Analyzer 0 % (0-5); Platelet Count 142 K/mm3 (150-450); RBC Distribution Width CV 13.8 % (11.6-14.6); RBC Distribution Width SD 45.9 fl (35.1-43.9); Red Blood Count 3.83 M/mm3 (4.2-5.4); White Blood Count 3.8 K/mm3 (4.4-11.0)
[2025-08-12 07:09] LABS: Anion Gap 10 (5-15); BUN 20 mg/dL (4-19); BUN/Creat Ratio 29.5 RATIO (10-20); Calcium,Total 8.9 mg/dL (7.6-11.0); Carbon Dioxide 25.3 mmol/L (21.0-32.0); Chloride 101 mmol/L (98-108); Glucose 104 mg/dL (70-99); Potassium 4.0 mmol/L (3.3-5.1)
== END ==
LOC: OLS.WHLTCC 05:00
PROVIDERS: PCP Family Medicine Geriatric Medicine; Visit Provider Internal Medicine
DX: D64.9 Anemia, unspecified (principal); I25.10 Atherosclerotic heart disease of native coronary artery without angina pectoris; S72.402D Unspecified fracture of lower end of left femur, subsequent encounter for closed fracture with routine healing; M62.81 Muscle weakness (generalized)
CPT/HCPCS: 36415; 80048; 85025

== ENCOUNTER → 2025-08-26 | Outpatient (REF) | payer MEDICARE, SELFPAY ==
[2025-04-07 07:10] VITALS: BMI 28.1
--- OUTSIDE RECORDS SUMMARY | 2025-08-26 04:36 | XMS RPT_ITS | CCD ---
Author Organization [facility] Care Team Providers Care Business Employment Specialist Name Role Phone UMM, SERGIO E Unavailable Unavailable UMM, SERGIO E Unavailable Unavailable UMM, SERGIO E Unavailable Unavailable UMM, SERGIO E Unavailable Unavailable UMM, SERGIO Unavailable Unavailable UMM, SERGIO Unavailable Unavailable [place], Fritz Unavailable Unavailable UMM, SERGIO Unavailable Unavailable UMM, SERGIO Unavailable Unavailable [place], Fritz Unavailable Unavailable [place], Fritz Unavailable Unavailable UMM, SERGIO Unavailable Unavailable UMM, SERGIO Unavailable Unavailable FLAQUITO, EH-CHI Unavailable Unavailable UMM, SERGIO Unavailable Unavailable UMM, SERGIO Unavailable Unavailable FLAQUITO, EH-CHI Unavailable Unavailable UMM, SERGIO Unavailable Unavailable UMM, SERGIO Unavailable Unavailable Dr. Eh Huddleston Chi Primary Care Provider 1([facility])[phone] Dr. Eh Huddleston Chi Referring Provider [phone] Abraham Sheppard Attending Provider 1([facility])[phone] Eh Huddleston Chi Primary Care Provider 1([facility])[phone] Dr. Abraham Sheppard Attending Provider 1([facility])[phone] Eh Huddleston Chi Primary Care Provider 1([facility])[phone] Eh Huddleston Chi Referring Provider 1([facility])[phone] Sole DOW, VICTOR M Cunningham Attending Provider Dr. Richy Coronado Attending Provider 1([facility])[phone] Richy Coronado Referring Provider 1([facility])[phone] Eh Huddleston Chi Primary Care Provider 1([facility])[phone] Unavailable Primary Care Provider Unavailabl azam Huddleston Eh Chi Primary Care Provider Flaquito, Eh Chi Primary Care Provider [phone] Flaquito RICKS, Dr. Eh Mckeon Primary Care [...] Unavailable FLAQUITO, EH CHI Primary Care Unavailable ODIOLN WELLS Attending Unavailable WALI TRIANA Attending Unavailable [...] , Dr. Eh Mckeon Primary Care Provider [phone] Flaquito RICKS, Dr. Eh Mckeon Attending Provider Dr. Eh Huddleston MD, Chi Referring Provider [phone] LeidaJean-Pierre BREWER, Dr. Georges Emergency Provider [facility], Dr. Benjamin Admit Provider Stephenie BREWER, Dr. Benjamin Attending Provider [facility], Dr. Benjamin Other Provider Mathieu RICKS, Dr. Bryant Attending Provider Miki BREWER, Dr. Trevizo Other Provider [phone] Nathan Heredia MD Other Provider Unavailable Nikolay [...] Provider Nicola RICKS, Dr. Gresham Other Provider [phone] Angelina RICKS, Dr. Farr Other Provider [phone] Flako RICKS, Dr. Guerrero Other Provider Unavailable Vivi RICKS, Yousevioleta Other Provider Unavailable Dr. Sourav Casiano DO Attending Provider Vincent RICKS, Dr. Molina Attending Provider Mathieu RICKS, Dr. Bryant Other Provider Flaquito RICKS, Dr. Eh Mckeon Primary Care Provider [phone] ODILON WELLS Attending Provider ODILON WELLS Referring Provider Santa RICKS, Dr. Stacy Attending Provider Karen RICKS, Dr. Fernandez Referring Provider [phone] Flaquito RICKS, Dr. Eh Mckeon Admit Provider Hattie RICKS, Dr. Zepeda Other Provider Dr. Basim Murillo MD Attending Provider Flaquito RICKS, Dr. Eh Mckeon Other Provider Hattie RICKS, Dr. Zepeda Attending Provider Hattie RICKS, Dr. Zepeda Other Provider Hattie RICKS, Dr. Zepeda Attending Provider Kev RICKS, Dr. Celis Attending Provider Unavail able Flaquito RICKS, Dr. Eh Mckeon Primary Care Provider [phone] ODILON WELLS Attending Provider ODILON WELLS Referring Provider Flaquito RICKS, Dr. Eh Mckeon Attending Provider Flaquito RICKS, Dr. Eh Mckeon Referring Provider Thomas BREWER, Dr. Georges Emergency Provider Stephenie BREWER, Dr. Benjamin Admit Provider Stephenie BREWER, Dr. Benjamin Other Provider Mathieu RICKS, Dr. Bryant Attending Provider Miki BREWER, Dr. Trevizo Other Provider [phone] Yan RICKS, Nathan Other Provider Unavailable Nikolay RICKS, Dr. Nunes Other Provider Sheila RICKS, Georgina Other Provider Unavailable Pankaj BREWER, Dr. Amaro Other Provider Hans RICKS, Dr. Stevenson Other Provider [phone] Fredy RICKS, Dr. Ellsworth Other Provider Max RICKS, Dr. Zacarias Other Provider Jose Manuel RICKS, Dr. Harry Other Provider [phone] Andrade RICKS, Dr. Allen Other Provider Jad RICKS, Dr. Funez Other Provider Melissa Quinonez MD Other Provider [phone] Araceli RICKS, Dr. Ly Other Provider Chris RICKS, Dr. Garza Other Provider Whitley RICKS, Dr. Ko Other Provider Aj RICKS, Dr. Maria Guadalupe Bundy Other Provider [phone] Francis RICKS, Dr. Sheth Other Provider Nicola RICKS, Dr. Gresham Other Provider Angelina RICKS, Dr. Farr Other Provider Flako RICKS, Dr. Guerrero Other Provider Unavailable Vivi RICKS, Benjamín Other Provider Unavailable Stephenie BREWER, Dr. Benjamin Attending Provider Santa RICKS, Dr. Stacy Attending Provider Karen RICKS, Dr. Fernandez Referring Provider Vincent RICKS, Dr. Molina Attending Provider [phone] Mathieu RICKS, Dr. Bryant Other Provider [phone] Flaquito RICKS, Dr. Eh Mckeon Admit Provider Hattie RICKS, Dr. Zepead Other Provider Chidi RICKS, Dr. Stallworth Attending Provider Flaquito RICKS, Dr. Eh Mckeon Other Provider Hattie RICKS, Dr. Zepeda Attending Provider Kev RICKS, Dr. Celis Attending Provider Unavail able Nereyda Manzo MD Attending Provider Unavaila Maricarmen Gallegos Attending Provider Flaquito RICKS, Dr. Eh Mckeon Primary Care Provider ODILON WELLS Attending Provider [phone] ODILON WELLS Referring Provider Kev RICKS, Dr. Celis Referring Provider Unavail able Blanca GARCIA-CLita Attending Provider Jovany RICKS, Dr. Dawn Attending Provider [phone] Sourav Casiano Admitting Unavailable Sourav Casiano Attending Unavailable Flaquito, Eh Chi Primary Care Unavailable Santhosh Livingston Consulting Unavailable Sourav Casiano Consulting Unavailable Flaquito, Eh Chi Primary Care Unavailable Oleghe Nereyda SALMERON Attending Unavailabl e Flaquito, Eh Chi Primary Care Unavailable Oleghe Nereyda SALMERON Attending Unavailabl e Flaquito, Eh Chi Primary Care Unavailable Oleghe Nereyda SALMERON Attending Unavailabl e Flaquito, Eh Chi Primary Care Unavailable HELEN CHANG Referring Unavailable HELEN CHANG Attending Unavailable Flaquito, Eh Chi Primary Care Unavailable HELEN CHANG Referring Unavailable HELEN CHANG Attending Unavailable Flaquito, Eh Chi Primary Care Unavailable Oleghe OLS, Efewongbe Attending Unavailabl e Flaquito, Eh Chi Primary Care Unavailable Kev SALMERON Vimal Attending Unavailable Flaquito, Eh Chi Primary Care Unavailable KUIVILA, HELEN Attending Unavailable KUIVILA, HELEN Referring Unavailable Flaquito, Eh Chi Primary Care Unavailable KUIVILA, HELEN Referring Unavailable KUIVILA, HELEN Attending Unavailable Flaquito, Eh Chi Primary Care Unavailable Oleghe OLS, Efewongbe Attending Unavailabl e Oleghe OLS, Efewongbe Attending Unavailabl e Flaquito, Eh Chi Primary Care Unavailable Flaquito, Eh Chi Primary Care Unavailable Flaquito, Eh Chi Attending Unavailable Flaquito, Eh Chi Primary Care Unavailable Flaquito, Eh Chi Referring Unavailable Flaquito, Eh Chi Attending Unavailable Oleghe OLS, Efewongbe Attending Unavailabl e Flaquito, Eh Chi Primary Care Unavailable Flaquito, Eh Chi Primary Care Unavailable KUIVILA, HELEN Referring Unavailable KUIVILA, HELEN Attending Unavailable Flaquito, Eh Chi Primary Care Unavailable KUIVILA, HELEN Attending Unavailable KUIVILA, HELEN Referring Unavailable Flaquito, Eh Chi Primary Care Unavailable KUIVILA, HELEN Attending Unavailable KUIVILA, HELEN Referring Unavailable Oleghe OLS, Efewongbe Attending Unavailabl e Flaquito, Eh Chi Primary Care Unavailable Oleghe OLS, Efewongbe Referring Unavailabl e Oleghe OLS, Efewongbe Attending Unavailabl e Flaquito, Eh Chi Primary Care Unavailable Oleghe OLS, Efewongbe Attending Unavailabl e Flaquito, Eh Chi Primary Care Unavailable Flaquito, Eh Chi Primary Care Unavailable Vimal Trimble Referring Unavailable Angulocecilio SALMERON Vimal Attending Unavailable Flaquito, Eh Chi Primary Care Unavailable Flaquito, Eh Chi Attending Unavailable Flaquito, Eh Chi Referring Unavailable Flaquito, Eh Chi Primary Care Unavailable Oleghe, Efewongbe Attending Unavailable Flaquito, Eh Chi Primary Care Unavailable [place] PRIMARY COUNSELOR, Lita Attending Unavailable Flaquito, Eh Chi Primary Care Unavailable [place] PRIMARY COUNSELOR, Lita Attending Unavailable Flaquito, Eh Chi Primary Care Unavailable Flaquito, Eh Chi Referring Unavailable Maricarmen Warner Attending Unavailable Manny Murdock Attending Unavailable Nathan Heredia Consulting Unavailable Adeli, Amir Consulting Unavailable Hinduja, Georgina Consulting Unavailable Pankaj, Sondra Consulting Unavailable Zha, Elva Consulting Unavailable Fredy, Seng Consulting Unavailable Max, Deann Consulting Unavailable BitPiero santana Consulting Unavailable Marco Zafar Consulting Unavailable Armin Street Consulting Unavailable Melissa Quinonez Consulting Unavailable Malachi Charles Consulting Unavailable Kayla Perez Consulting Unavailable Whitley, Davidamed Consulting Unavailable Aj, Hieud Gregor Consulting UnavailDomenic Saenz Consulting Unavailable Petersen, Rami Consulting Unavailable Yordan Alfaro Consulting Unavailable Yolanda Arriola Consulting Unavailable Benjamín Trinidad Consulting Unavailable Manny Murdock Consulting Unavailable Flaquito, Eh Chi Primary Care Unavailable Tracy Kaur Attending Unavailable Flaquito, Eh Chi Primary Care Unavailable Azul Pratt Attending Unavailable Jim Jones Referring Unavailable Flaquito, Eh Chi Primary Care Unavailable Flaquito, Eh Chi Referring Unavailable Basim Murillo Attending Unavailable Flaquito, Eh Chi Admitting Unavailable Flaquito, Eh Chi Consulting Unavailable Flaquito, Eh Chi Primary Care Unavailable Katelyn Kuhn Attending Unavailable Nereyda Hartman Attending Unavailabl e Flaquito, Eh Chi Primary Care Unavailable Flaquito, Eh Chi Admitting Unavailable Flaquito, Eh Chi Primary Care Unavailable Flaquito, Eh Chi Attending Unavailable Katelyn Kuhn Consulting Unavailable Flaquito, Eh Chi Primary Care Unavailable Mathieu, Manny Attending Unavailable Sourav Casiano Consulting Unavailable Sourav Casiano Admitting Unavailable Santhosh Livingston Consulting Unavailable Nathan Heredia Consulting Unavailable Des Link Consulting Unavailable Georgina Sosa Consulting Unavailable Sondra Lira Consulting Unavailable Elva Maxwell Consulting Unavailable Seng Daniel Consulting Unavailable Deann Santana Consulting Unavailable Piero Richard Consulting Unavailable Marco Zafar Consulting Unavailable Armin Street Consulting Unavailable Melissa Quinonez Consulting Unavailable Malachi Charles Consulting Unavailable Kayal Perez Consulting Unavailable Whitley, Davidamed Consulting Unavailable Aj, Hieud Gregor Consulting UnavailDomenic Saenz Consulting Unavailable Nicola, Rami Consulting Unavailable Yordan Alfaro Consulting Unavailable Yolanda Arriola Consulting Unavailable Benjamín Trinidad Consulting Unavailable Medications Current Medications Medication Drug Class(es) Dates Sig (Normalized) Sig (Original) acetaminophen 500 mg oral tablet (14 sources) Start: 05-14-2025 End: 06-04-2025 Start: 05-14-2025 [...] 03/04/2025 Active apixaban 5 mg oral tablet (16 sources) Factor Xa Inhibitor Start: 03-02-2025 End: 06-24-2025 ascorbic acid 500 mg oral tablet (6 sources) Vitamin C Start: 06-04-2025 Start: 06-04-2025 [...] daily. docusate sodium 50 mg / sennosides, senior living 8.6 mg oral tablet (14 sources) Start: 05-14-2025 End: 06-04-2025 Start: 05-14-2025 End: 06-04-2025 Sennosides-Docusate Sodium ( Stimulant Laxative Plus) 8.6-50 mg Tablet Active 1 {tbl} PO TWICE A DAY 0 0 June 04, 2025 12:00am dorzolamide 20 mg/ml / timol ol 5 mg/ml ophthalmic solution (19 sources) Carbonic Anhydrase Inhibitor, beta-Adrenergic Madhu Start: [...] bedtime. losartan potassium 25 mg oral tablet (8 sources) Angiotensin 2 Receptor Madhu Start: 05-14-2025 Menthol / Zinc Oxide (2 sources) Start: 06-04-2025 Menthol-Zinc Oxide (Calmoseptine) 0.44-20.6 % Ointment Active 1 NMA TOPICAL TWICE A DAY 0 0 June 04, 2025 12:00am Please contact the information source for Protocol details. pantoprazole 40 mg delayed release oral tablet (8 sources) Proton Pump Inhibitor Start: 05-14-2025 phenylephrine hydrochloride 25 mg/ml ophthalmic solution (3 sources) alpha-1 Adrenergic Agonist Start: 05-26-2024 End: 05-27-2024 PHENYLephrine 2.5 % 1 Drop (AK-DILATE, AMBER-SYNEPHRINE) Start: 01-16-2024 End: 01-17-2024 PHENYLephrine 2.5 % 1 Drop ( AK-DILATE, AMBER-SYNEPHRINE) polysaccharide iron complex 150 mg oral capsule (6 sources) Start: 06-04-2025 prednisoLONE acetate 10 mg/ml [...] Active tamsulosin hydrochloride 0.4 mg oral capsule (6 sources) alpha-Adrenergic Madhu Start: 06-04-2025 shtvqhg-cqawcuvvi-rd rzolam,PF (DIP-PEIP-PNX) 0.5-0.15-2 % ophthalmic solution (20 sources) Start: 10-29-2024 take 1 drop(s) into the eye(s) twice daily timolol-brimonidi- dorzolam,PF (ZGH-XBLY-BJG) 0.5-0.15-2 % ophthalmic solution Use 1 Drop in the left eye two times a day. 10/29/2024 Suspended Start: 10-29-2024 take 1 drop(s) into the eye(s) twice daily lfgwphk-hrhedknoo-untgjyal,PF (LEIGHTON-BRIM- HELDER) 0.5-0.15-2 % ophthalmic solution Use 1 Drop in the left eye two times a day. 10/29/2024 Active Start: 10-29-2024 End: 10-29-2024 take 1 drop(s) into the eye(s) once daily at bedtime byeukik-terawclls-jkjwcwvp,PF (LEIGHTON-BRIM- HELDER) 0.5-0.15-2 % ophthalmic solution Use 1 Drop in the left eye daily at bedtime. 10/29/2024 10/29/2024 Discontinued (Adjust Sig - Block E-Cancel) tropicamide 10 mg/ml ophthalmic solution (3 sources) Anticholinergic Start: 05-26-2024 End: 05-27-2024 tropicamide 1 % 1 Drop (MYDRIACYL) Start: 01-16-2024 End: 01-17-2024 tropicamide 1 % 1 Drop (MYDR IACYL) vancomycin 25 mg/ml oral phillip ution (6 sources) Glycopeptide Antibacterial Start: 06-04-2025 (4 sources) Start: 06-04-2025 Completed/Discontinued Medications Medication Drug Class(es) [...] on above: Take 1 tablet by debra twice daily with meals. cefdinir 300 mg oral capsule (19 sources) Cephalosporin Antibacterial Start: 11-28-2017 End: 12-04-2017 [...] guaiFENesin 1200 mg extended release oral tablet (19 sources) Start: 11-28-19 18 End: 12-04-19 18 metFORMIN hydrochloride 500 mg oral tablet (19 sources) Biguanide Start: 11-28-19 18 End: 12-04-19 18 moxifloxacin 5 mg/ml ophthalmic solution (20 sources) Quinolone Antimicrobial Start: 04-20-20 End: 10-29-19 25 take 1 drop(s) into [...] Active oxyCODONE hydrochloride 5 mg oral tablet (15 sources) Opioid Agonist Start: 05-14-2025 End: 06-04-2025 [...] (3 sources) Serotonin Reuptake Inhibitor Start: 08-12-20 End: 04-06-20 take 1 tablet by mouth [...] Documented Da te Episodic/Chronic Acute cerebrovascular disease (15 sources) Cerebrovascular accident; Translations: [Cerebral infarction, unspecified] [...] disease (20 sources) Atherosclerotic heart disease of [place] coronary artery without angina pectoris; 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] Onset: 12-30-2017 Chronic Comment on above: Moderate 3 vessel di sease: LAD: significant mid vessel disease with multiple moderate stenosis thruout mid and mid-distal LAD; LCX: moderate diffuse disease; RCA:moderate diffuse disease 12/27/17 Deficiency and other anemia (1 source) Anemia, unspecified; Translations: [Anemia, unspecified] Onset: 08-16-2025 Episodic Diabetes mellitus without complication (19 sources) Prediabetes; Translations: [Prediabetes] 11-28-2017 Episodic Disorders of lipid metabolism (20 sources) Pure hypercholesterolemia; Translations: [Pure hypercholesterolemia, unspecified] Onset: 02-26-2019 Chronic E Codes: Fall (19 sources) Fall; Translations: [Unspecified fall, initial encounter] 06-05-2022 Episodic Essential hypertension (20 sources) Essential (primary) hypertension; Translations: [Essential hypertension] Onset: 09-09-2017 Chronic Fracture of lower limb (20 sources) Fracture of distal end of femur; Translations: [Unspecified fracture of lower end of unspecified femur, initial encounter for closed fracture] Onset: 05-27-2025 05-07-2025 Episodic Genitourinary symptoms and ill-defined conditions (13 sources) Retention of urine; Translations: [Retention of [...] 06-24-2025 06-05-2022 Episodic Open wounds of extremities (19 sources) Laceration of lower limb; Translations: [Laceration without foreign body, unspecified lower leg, initial encounter] 06-05-2022 Episodic Open wounds of head; neck; and trunk (19 sources) Laceration of lip ; Translations: [Laceration without foreign body of lip, initial encounter] 06-05-2022 Episodic Other connective tissue disease (1 source) Muscle weakness (generalized); Translations: [Muscle weakness (generalized)] Onset: 08-16-2025 Episodic Other connective tissue disease (1 source) Pain in left lower leg; Translations: [Pain in left lower leg] Onset: 06-09-2025 Episodic Other gastrointestinal disorders (1 source) Diarrhea, unspecified; Translations: [Diarrhea, unspecified] Onset: 07-02-2025 Episodic Other infections; including parasitic (6 sources) H/O: colitis; Translations: [Personal history of other infectious and parasitic diseases] 06-23-2025 Episodic Other injuries and conditions due to external causes (19 sources) Closed injury of head; Translations: [Unspecified injury of head, initial encounter] 06-05-2022 Episodic Other injuries and conditions due to external causes (19 sources) Abrasion and/or friction burn of multiple sites; Translations: [Unspecified multiple injuries, initial encounter] 06-05-2022 Episodic Peripheral and visceral atherosclerosis (2 sources) Peripheral vascular disease, unspecified; Translations: [Peripheral vascular disease, unspecified] Onset: 12-23-2024 10-30-2024 Chronic Phlebitis; thrombophlebitis and thromboembolism (16 sources) Acute deep venous thrombosis of calf; [...] [Hypertensive retinopathy, right eye] 01-16-2024 Chronic Syncope (19 sources) Near syncope; Translations: [Syncope and collapse] 11-28-2017 Episodic Unclassified (1 source) Unknown / UNK(Unknown) Onset: 12-23-2017 Unclassified (1 source) Acute embolism and thrombosis of right calf muscular vein; Translations: [Acute deep vein thrombosis (DVT) of calf muscle vein of right lower extremity (HCC)] Onset: 03-02-2025 Unclassified (2 sources) Needs f/u for rdz removal, voiding trials Urinary tract infections (13 sources) Urinary tract infectious disease; Translations: [Urinary tract infection, site not specified] Onset: 06-24-2025 06-03-2025 Episodic Past or Other Problems Problem Classification Problem Date Documented Da te Episodic/Chronic Unclassified (7 sources) Severe aortic stenosis 12-23-2024 Results Test Name Value Interpretation Reference Range Facility Absolute lymphocyte countOrd ered By: Nereyda Manzo on 07-01-2025 Lymphocytes Auto (Unsp spec) [#/Vol] 1.89 10*3/uL 0.83-4.51 [facility] Anion gap in Serum or Plasma Ordered By: Nereyda Manzo on 07-01-2025 Anion gap [Moles/Vol] 9 mmol/L 5-15 [facility] Automated lymphocyte count a s percentage of total leukocytesOrdered By: Nereyda Manzo on 07-01-2025 Lymphocytes/100 WBC Auto (Unsp spec) 31.3 % 19-41 [facility] BUN/creatinine ratioOrdered By: Nereyda Manzo on 07-01-2025 Urea nitrogen/Creatinine [Mass ratio] 34.2 mg/mg High 10-20 [facility] Basophil percentageOrdered B y: Emiliaodaliskavya Wisesakinaazam on 07-01-2025 Basophils/100 WBC (Bld) 0.8 % 0-1 [facility] Carbon dioxide, total [Moles /volume] in Central venous bloodOrdered By: Nereyda Manzo on 07-01-2025 CO2 [Moles/Vol] 26.5 mmol/L 21.0-32.0 [facility] Chloride assayOrdered By: Arcelia Manzo on 07-01-2025 Chloride [Moles/Vol] 102 mmol/L 98-108 [facility] Eosinophil percentageOrdered By: Nereyda Manzo on 07-01-2025 Eosinophils/100 WBC (Bld) 11.8 % High 0-5 [facility] Erythrocyte distribution wid th ratioOrdered By: Nereyda Manzo on 07-01-2025 Erythrocyte distribution width (RBC) [Ratio] 13.6 % 11.6-14.6 [facility] Erythrocyte distribution wid th standard deviationOrdered By: karenaltamontkavya Manzo on 07-01-2025 Erythrocyte distribution width (RBC) [Ratio] 46.6 fl High 35.1-43.9 [facility] Glomerular filtration rate ( GFR) estimation/1.73 sq m using serum, plasma, or whole bOrdered By: Nereyda Manzo on 07-01-2025 GFR/1.73 sq M.predicted among non-blacks MDRD (S/P/Bld) [Vol rate/Area] 86 mL/min/{1.73_m2} >60 [facility] Hematocrit Auto (Bld) [Volum e fraction]Ordered By: Nereyda Manzo on 07-01-2025 Hematocrit (Bld) [Volume fraction] 33.8 % Low 37-47 [facility] Hemoglobin measurementOrdere d By: Nereyda Manzo on 07-01-2025 Hemoglobin (Bld) [Mass/Vol] 11.3 g/dL Low 12.0-15.0 [facility] Immature granulocytes/100 WB C Auto (Bld)Ordered By: Nereyda Manzo on 07-01-2025 Immature granulocytes/100 WBC (Bld) 0.200 % 0.0-0.9 [facility] MCV (mean corpuscular volume ) determinationOrdered By: Nereyda Manzo on 07-01-2025 MCV (RBC) [Entitic vol] 91.8 fL 81-99 [facility] Mean corpuscular hemoglobin (MCH) determinationOrdered By: Nereyda Manzo on 07-01-2025 MCH (RBC) [Entitic mass] 30.7 pg 27.0-32.0 [facility] Monocyte percentageOrdered B y: Nereyda Manzo on 07-01-2025 Monocytes/100 WBC (Bld) 9.3 % 0-10 [facility] Neutrophil percentageOrdered By: Emiliaaltamontkavya Manzo on 07-01-2025 Neutrophils/100 WBC (Bld) 46.6 % Low 47-70 [facility] Platelet countOrdered By: Arcelia Manzo on 07-01-2025 Platelets (Bld) [#/Vol] 182 10*3/uL 150-450 [facility] Potassium measurement (mass/ volume)Ordered By: Nereyda Manzo on 07-01-2025 Potassium (Unsp spec) [Mass/Vol] 4.1 mmol/L 3.3-5.1 [facility] RBC Auto (Bld) [#/Vol]Ordere d By: Nereyda Manzo on 07-01-2025 RBC (Bld) [#/Vol] 3.68 10*6/uL Low 4.2-5.4 [facility] Serum creatinine measurement (mass/volume)Ordered By: Nereyda Manzo on 07-01-2025 Creatinine [Mass/Vol] 0.65 mg/dL Low 0.70-1.20 [facility] Serum glucose measurement (m ass/volume)Ordered By: Nereyda Manzo on 07-01-2025 Glucose [Mass/Vol] 99 mg/dL 70-99 [facility] Serum or plasma calcium susy urement (mass/volume)Ordered By: Nereyda Manzo on 07-01-2025 Calcium [Mass/Vol] 9.1 mg/dL 7.6-11.0 [facility] Serum or plasma urea nitroge n measurement (mass/volume)Ordered By: Nereyda Manzo on 07-01-2025 Urea nitrogen [Mass/Vol] 22 mg/dL High 4-19 [facility] Sodium levelOrdered By: Emilia Manzo on 07-01-2025 Sodium [Moles/Vol] 138 mmol/L 133-145 [facility] White blood cell (WBC) count Ordered By: Arceliakarenmaricel Frandytamera on 07-01-2025 WBC (Bld) [#/Vol] 6.0 10*3/uL 4.4-11.0 [facility] Absolute lymphocyte countOrd ered By: Nereyda Manzo on 06-24-2025 Lymphocytes Auto (Unsp spec) [#/Vol] 1.52 10*3/uL 0.83-4.51 [facility] Anion gap in Serum or Plasma Ordered By: Arceliakarenmaricel Frandysakinaazam on 06-24-2025 Anion gap [Moles/Vol] 8 mmol/L 5-15 [facility] Automated lymphocyte count a s percentage of total leukocytesOrdered By: Nereyda Manzo on 06-24-2025 Lymphocytes/100 WBC Auto (Unsp spec) 23.1 % 19-41 [facility] BUN/creatinine ratioOrdered By: Nereyda Manzo on 06-24-2025 Urea nitrogen/Creatinine [Mass ratio] 30.2 mg/mg High 10-20 [facility] Basophil percentageOrdered B y: Nereyda Manzo on 06-24-2025 Basophils/100 WBC (Bld) 0.5 % 0-1 [facility] Carbon dioxide, total [Moles /volume] in Central venous bloodOrdered By: Nereyda Frandysakinaazam on 06-24-2025 CO2 [Moles/Vol] 26.9 mmol/L 21.0-32.0 [facility] Chloride assayOrdered By: Arcelia joelkavya Wisesakinaazam on 06-24-2025 Chloride [Moles/Vol] 102 mmol/L 98-108 [facility] Eosinophil percentageOrdered By: Nereyda Manzo on 06-24-2025 Eosinophils/100 WBC (Bld) 9.4 % High 0-5 [facility] Erythrocyte distribution wid th ratioOrdered By: Nereyda Manzo on 06-24-2025 Erythrocyte distribution width (RBC) [Ratio] 14.1 % 11.6-14.6 [facility] Erythrocyte distribution wid th standard deviationOrdered By: tino Manzo on 06-24-2025 Erythrocyte distribution width (RBC) [Ratio] 47.9 fl High 35.1-43.9 [facility] Glomerular filtration rate ( GFR) estimation/1.73 sq m using serum, plasma, or whole bOrdered By: Nereyda Manzo on 06-24-2025 GFR/1.73 sq M.predicted among non-blacks MDRD (S/P/Bld) [Vol rate/Area] 87 mL/min/{1.73_m2} >60 [facility] Hematocrit Auto (Bld) [Volum e fraction]Ordered By: Nereyda Manzo on 06-24-2025 Hematocrit (Bld) [Volume fraction] 32.9 % Low 37-47 [facility] Hemoglobin measurementOrdere d By: Nereyda Manzo on 06-24-2025 Hemoglobin (Bld) [Mass/Vol] 10.9 g/dL Low 12.0-15.0 [facility] Immature granulocytes/100 WB C Auto (Bld)Ordered By: Nereyda Manzo on 06-24-2025 Immature granulocytes/100 WBC (Bld) 0.300 % 0.0-0.9 [facility] MCV (mean corpuscular volume ) determinationOrdered By: Nereyda Manzo on 06-24-2025 MCV (RBC) [Entitic vol] 92.9 fL 81-99 [facility] Mean corpuscular hemoglobin (MCH) determinationOrdered By: karenaltamontkavya Manzo on 06-24-2025 MCH (RBC) [Entitic mass] 30.8 pg 27.0-32.0 [facility] Monocyte percentageOrdered B y: Nereyda Manzo on 06-24-2025 Monocytes/100 WBC (Bld) 9.0 % 0-10 [facility] Neutrophil percentageOrdered By: Arceliakarenodaliskavya Wisesakinaazam on 06-24-2025 Neutrophils/100 WBC (Bld) 57.7 % 47-70 [facility] Platelet countOrdered By: Arcelia tino Frandysakinaazam on 06-24-2025 Platelets (Bld) [#/Vol] 158 10*3/uL 150-450 [facility] Potassium measurement (mass/ volume)Ordered By: Nereyda Manzo on 06-24-2025 Potassium (Unsp spec) [Mass/Vol] 3.9 mmol/L 3.3-5.1 [facility] RBC Auto (Bld) [#/Vol]Ordere d By: Emiliaodaliskavya Wisetamera on 06-24-2025 RBC (Bld) [#/Vol] 3.54 10*6/uL Low 4.2-5.4 [facility] Serum creatinine measurement (mass/volume)Ordered By: Nereyda Manzo on 06-24-2025 Creatinine [Mass/Vol] 0.62 mg/dL Low 0.70-1.20 [facility] Serum glucose measurement (m ass/volume)Ordered By: Nereyda Manzo on 06-24-2025 Glucose [Mass/Vol] 97 mg/dL 70-99 [facility] Serum or plasma calcium susy urement (mass/volume)Ordered By: Nereyda Manzo on 06-24-2025 Calcium [Mass/Vol] 9.1 mg/dL 7.6-11.0 [facility] Serum or plasma urea nitroge n measurement (mass/volume)Ordered By: Nereyda Manzo on 06-24-2025 Urea nitrogen [Mass/Vol] 19 mg/dL 4-19 [facility] Sodium levelOrdered By: Emilia maricel Frandysaiknaazam on 06-24-2025 Sodium [Moles/Vol] 137 mmol/L 133-145 [facility] White blood cell (WBC) count Ordered By: Nereyda Manzo on 06-24-2025 WBC (Bld) [#/Vol] 6.6 10*3/uL 4.4-11.0 [facility] Gastroenterology Visit Repor ton 06-23-2025 Gastroenterology Visit Report Normal [facility] Basic Metabolic Profile (BMP )on 06-19-2025 BUN Normal 4-19 [facility] Comment on above: Result Comment: Canc elled via OM: Ordered/Entered in error Performed By: #### L 500.2500 ####[facility] [address] [place], [address] BUN/CRE Normal 10-20 [facility] Comment on above: Result Comment: Canc elled via OM: Ordered/Entered in error Performed By: #### L 500.2500 ####[facility] [address] [place], [address] Calcium Normal 7.6-11.0 [facility] Comment on above: Result Comment: Canc elled via OM: Ordered/Entered in error Performed By: #### L 500.2500 ####[facility] [address] [place], [address] CL Normal 98-108 [facility] Comment on above: Result Comment: Canc elled via OM: Ordered/Entered in error Performed By: #### L 500.2500 ####[facility] [address] [place], [address] CO2 Normal 21.0-32.0 [facility] Comment on above: Result Comment: Canc elled via OM: Ordered/Entered in error Performed By: #### L 500.2500 ####[facility] [address] [place], [address] CREAT,SERUM Normal 0.70-1.20 [facility] Comment on above: Result Comment: Canc elled via OM: Ordered/Entered in error Performed By: #### L 500.2500 ####[facility] [address] [place], [address] eGFR Normal >60 [facility] Comment on above: Result Comment: Canc elled via OM: Ordered/Entered in error Performed By: #### L 500.2500 ####[facility] [address] [place], [address] GAP Normal 5-15 [facility] Comment on above: Result Comment: Canc elled via OM: Ordered/Entered in error Performed By: #### L 500.2500 ####[facility] [address] [place], [address] GLU Normal 70-99 [facility] Comment on above: Result Comment: Canc elled via OM: Ordered/Entered in error Performed By: #### L 500.2500 ####[facility] [address] [place], [address] Potassium Normal 3.3-5.1 [facility] Comment on above: Result Comment: Canc elled via OM: Ordered/Entered in error Performed By: #### L 500.2500 ####[facility] [address] [place], [address] Basic Metabolic Profile (BMP) Normal 133-145 [facility] Comment on above: Result Comment: Canc elled via OM: Ordered/Entered in error Performed By: #### L 500.2500 ####[facility] [address] [place], [address] CBC W/Diff, Automatedon 08-2 Absolute Neut Normal 2.0-7.7 [facility] Comment on above: Result Comment: Canc elled via OM: Order cancelled - Patient discharged Performed By: #### L 100.0100 ####[facility] [address] [place], [address] HCT Normal 37-47 [facility] Comment on above: Result Comment: Canc elled via OM: Order cancelled - Patient discharged Performed By: #### L 100.0100 ####[facility] [address] [place], [address] HGB Normal 12.0-15.0 [facility] Comment on above: Result Comment: Canc elled via OM: Order cancelled - Patient discharged Performed By: #### L 100.0100 ####[facility] [address] [place], [address] MCH Normal 27.0-32.0 [facility] Comment on above: Result Comment: Canc elled via OM: Order cancelled - Patient discharged Performed By: #### L 100.0100 ####[facility] [address] [place], [address] MCHC Normal 32-36 [facility] Comment on above: Result Comment: Canc elled via OM: Order cancelled - Patient discharged Performed By: #### L 100.0100 ####[facility] [address] [place], [address] MCV Normal 81-99 [facility] Comment on above: Result Comment: Canc elled via OM: Order cancelled - Patient discharged Performed By: #### L 100.0100 ####[facility] [address] [place], [address] NEUT% Normal 47-70 [facility] Comment on above: Result Comment: Canc elled via OM: Order cancelled - Patient discharged Performed By: #### L 100.0100 ####[facility] [address] [place], [address] PLT Normal 150-450 [facility] Comment on above: Result Comment: Canc elled via OM: Order cancelled - Patient discharged Performed By: #### L 100.0100 ####[facility] [address] [place], [address] RBC Normal 4.2-5.4 [facility] Comment on above: Result Comment: Canc elled via OM: Order cancelled - Patient discharged Performed By: #### L 100.0100 ####[facility] [address] [place], [address] RDW CV Normal 11.6-14.6 [facility] Comment on above: Result Comment: Canc elled via OM: Order cancelled - Patient discharged Performed By: #### L 100.0100 ####[facility] [address] [place], [address] RDW SD Normal 35.1-43.9 [facility] Comment on above: Result Comment: Canc elled via OM: Order cancelled - Patient discharged Performed By: #### L 100.0100 ####[facility] [address] [place], [address] WBC Normal 4.4-11.0 [facility] Comment on above: Result Comment: Canc elled via OM: Order cancelled - Patient discharged Performed By: #### L 100.0100 ####[facility] [address] [place], [address] Absolute lymphocyte countOrd ered By: Nereyda Manzo on 06-17-2025 Lymphocytes Auto (Unsp spec) [#/Vol] 1.03 10*3/uL 0.83-4.51 [facility] Anion gap in Serum or Plasma Ordered By: Nereyda Manzo on 06-17-2025 Anion gap [Moles/Vol] 11 mmol/L 5-15 [facility] Automated lymphocyte count a s percentage of total leukocytesOrdered By: Nereyda Manzo on 06-17-2025 Lymphocytes/100 WBC Auto (Unsp spec) 16.8 % Low 19-41 [facility] BUN/creatinine ratioOrdered By: Nereyda Manzo on 06-17-2025 Urea nitrogen/Creatinine [Mass ratio] 21.7 mg/mg High 10-20 [facility] Basophil percentageOrdered B y: Nereyda Manzo on 06-17-2025 Basophils/100 WBC (Bld) 0.3 % 0-1 [facility] Carbon dioxide, total [Moles /volume] in Central venous bloodOrdered By: Nereyda Manzo on 06-17-2025 CO2 [Moles/Vol] 24.6 mmol/L 21.0-32.0 [facility] Chloride assayOrdered By: Arcelia Manzo on 06-17-2025 Chloride [Moles/Vol] 102 mmol/L 98-108 [facility] Eosinophil percentageOrdered By: Nereyda Manzo on 06-17-2025 Eosinophils/100 WBC (Bld) 4.9 % 0-5 [facility] Erythrocyte distribution wid th ratioOrdered By: Nereyda Manzo on 06-17-2025 Erythrocyte distribution width (RBC) [Ratio] 14.1 % 11.6-14.6 [facility] Erythrocyte distribution wid th standard deviationOrdered By: Nereyda Manzo on 06-17-2025 Erythrocyte distribution width (RBC) [Ratio] 49.1 fl High 35.1-43.9 [facility] Glomerular filtration rate ( GFR) estimation/1.73 sq m using serum, plasma, or whole bOrdered By: Nereyda Manzo on 06-17-2025 GFR/1.73 sq M.predicted among non-blacks MDRD (S/P/Bld) [Vol rate/Area] 85 mL/min/{1.73_m2} >60 [facility] Hematocrit Auto (Bld) [Volum e fraction]Ordered By: Nereyda Manzo on 06-17-2025 Hematocrit (Bld) [Volume fraction] 34.6 % Low 37-47 [facility] Hemoglobin measurementOrdere d By: Nereyda Manzo on 06-17-2025 Hemoglobin (Bld) [Mass/Vol] 11.3 g/dL Low 12.0-15.0 [facility] Immature granulocytes/100 WB C Auto (Bld)Ordered By: Nereyda Manzo on 06-17-2025 Immature granulocytes/100 WBC (Bld) 0.300 % 0.0-0.9 [facility] MCV (mean corpuscular volume ) determinationOrdered By: Nereyda Manzo on 06-17-2025 MCV (RBC) [Entitic vol] 94.3 fL 81-99 [facility] Mean corpuscular hemoglobin (MCH) determinationOrdered By: Nereyda Manzo on 06-17-2025 MCH (RBC) [Entitic mass] 30.8 pg 27.0-32.0 [facility] Monocyte percentageOrdered B y: Nereyda Manzo on 06-17-2025 Monocytes/100 WBC (Bld) 9.5 % 0-10 [facility] Neutrophil percentageOrdered By: Nereyda Manzo on 06-17-2025 Neutrophils/100 WBC (Bld) 68.2 % 47-70 [facility] Platelet countOrdered By: Arcelia Manzo on 06-17-2025 Platelets (Bld) [#/Vol] 177 10*3/uL 150-450 [facility] Potassium measurement (mass/ volume)Ordered By: Nereyda Manzo on 06-17-2025 Potassium (Unsp spec) [Mass/Vol] 3.4 mmol/L 3.3-5.1 [facility] RBC Auto (Bld) [#/Vol]Ordere d By: Nereyda Manzo on 06-17-2025 RBC (Bld) [#/Vol] 3.67 10*6/uL Low 4.2-5.4 [facility] Serum creatinine measurement (mass/volume)Ordered By: Nereyda Manzo on 06-17-2025 Creatinine [Mass/Vol] 0.66 mg/dL Low 0.70-1.20 [facility] Serum glucose measurement (m ass/volume)Ordered By: Nereyda Manzo on 06-17-2025 Glucose [Mass/Vol] 100 mg/dL High 70-99 [facility] Serum or plasma calcium susy urement (mass/volume)Ordered By: Nereyda Manzo on 06-17-2025 Calcium [Mass/Vol] 9.3 mg/dL 7.6-11.0 [facility] Serum or plasma urea nitroge n measurement (mass/volume)Ordered By: Nereyda Manzo on 06-17-2025 Urea nitrogen [Mass/Vol] 14 mg/dL 4-19 [facility] Sodium levelOrdered By: Emilia Manzo on 06-17-2025 Sodium [Moles/Vol] 138 mmol/L 133-145 [facility] White blood cell (WBC) count Ordered By: Nereyda Manzo on 06-17-2025 WBC (Bld) [#/Vol] 6.1 10*3/uL 4.4-11.0 [facility] Clostridium difficile detect ion by polymerase chain reactionOrdered By: Nereyda Manzo on 06-16-2025 C. difficile DNA ZOEY+probe Ql (Unsp spec) [facility] Basic Metabolic Profile (BMP )on 06-12-2025 BUN Normal 4-19 [facility] Comment on above: Result Comment: Canc elled via OM: Ordered/Entered in error Performed By: #### L 500.2500 ####[facility] [address] [place], [address] BUN/CRE Normal 10-20 [facility] Comment on above: Result Comment: Canc elled via OM: Ordered/Entered in error Performed By: #### L 500.2500 ####[facility] [address] [place], [address] Calcium Normal 7.6-11.0 [facility] Comment on above: Result Comment: Canc elled via OM: Ordered/Entered in error Performed By: #### L 500.2500 ####[facility] [address] [place], [address] CL Normal 98-108 [facility] Comment on above: Result Comment: Canc elled via OM: Ordered/Entered in error Performed By: #### L 500.2500 ####[facility] [address] [place], [address] CO2 Normal 21.0-32.0 [facility] Comment on above: Result Comment: Canc elled via OM: Ordered/Entered in error Performed By: #### L 500.2500 ####[facility] [address] [place], [address] CREAT,SERUM Normal 0.70-1.20 [facility] Comment on above: Result Comment: Canc elled via OM: Ordered/Entered in error Performed By: #### L 500.2500 ####[facility] [address] [place], [address] eGFR Normal >60 [facility] Comment on above: Result Comment: Canc elled via OM: Ordered/Entered in error Performed By: #### L 500.2500 ####[facility] [address] [place], [address] GAP Normal 5-15 [facility] Comment on above: Result Comment: Canc elled via OM: Ordered/Entered in error Performed By: #### L 500.2500 ####[facility] [address] [place], [address] GLU Normal 70-99 [facility] Comment on above: Result Comment: Canc elled via OM: Ordered/Entered in error Performed By: #### L 500.2500 ####[facility] [address] [place], [address] Potassium Normal 3.3-5.1 [facility] Comment on above: Result Comment: Canc elled via OM: Ordered/Entered in error Performed By: #### L 500.2500 ####[facility] [address] [place], [address] Basic Metabolic Profile (BMP) Normal 133-145 [facility] Comment on above: Result Comment: Canc elled via OM: Ordered/Entered in error Performed By: #### L 500.2500 ####[facility] [address] [place], [address] Basic Metabolic Profile (BMP )on 06-11-2025 BUN Normal 4-19 [facility] Comment on above: Result Comment: Canc elled via OM: Order cancelled - Patient discharged Performed By: #### L 500.2500 ####[facility] [address] [place], [address] BUN/CRE Normal 10-20 [facility] Comment on above: Result Comment: Canc elled via OM: Order cancelled - Patient discharged Performed By: #### L 500.2500 ####[facility] [address] [place], [address] Calcium Normal 7.6-11.0 [facility] Comment on above: Result Comment: Canc elled via OM: Order cancelled - Patient discharged Performed By: #### L 500.2500 ####[facility] [address] [place], [address] CL Normal 98-108 [facility] Comment on above: Result Comment: Canc elled via OM: Order cancelled - Patient discharged Performed By: #### L 500.2500 ####[facility] [address] [place], [address] CO2 Normal 21.0-32.0 [facility] Comment on above: Result Comment: Canc elled via OM: Order cancelled - Patient discharged Performed By: #### L 500.2500 ####[facility] [address] [place], [address] CREAT,SERUM Normal 0.70-1.20 [facility] Comment on above: Result Comment: Canc elled via OM: Order cancelled - Patient discharged Performed By: #### L 500.2500 ####[facility] [address] [place], [address] eGFR Normal >60 [facility] Comment on above: Result Comment: Canc elled via OM: Order cancelled - Patient discharged Performed By: #### L 500.2500 ####[facility] [address] [place], [address] GAP Normal 5-15 [facility] Comment on above: Result Comment: Canc elled via OM: Order cancelled - Patient discharged Performed By: #### L 500.2500 ####[facility] [address] [place], [address] GLU Normal 70-99 [facility] Comment on above: Result Comment: Canc elled via OM: Order cancelled - Patient discharged Performed By: #### L 500.2500 ####[facility] [address] [place], [address] Potassium Normal 3.3-5.1 [facility] Comment on above: Result Comment: Canc elled via OM: Order cancelled - Patient discharged Performed By: #### L 500.2500 ####[facility] [address] [place], [address] Basic Metabolic Profile (BMP) Normal 133-145 [facility] Comment on above: Result Comment: Canc elled via OM: Order cancelled - Patient discharged Performed By: #### L 500.2500 ####[facility] [address] [place], [address] CBC W/Diff, Automatedon 08- Absolute Neut Normal 2.0-7.7 [facility] Comment on above: Result Comment: Canc elled via OM: Order cancelled - Patient discharged Performed By: #### L 100.0100 ####[facility] [address] [place], [address] HCT Normal 37-47 [facility] Comment on above: Result Comment: Canc elled via OM: Order cancelled - Patient discharged Performed By: #### L 100.0100 ####[facility] [address] [place], [address] HGB Normal 12.0-15.0 [facility] Comment on above: Result Comment: Canc elled via OM: Order cancelled - Patient discharged Performed By: #### L 100.0100 ####[facility] [address] [place], [address] MCH Normal 27.0-32.0 [facility] Comment on above: Result Comment: Canc elled via OM: Order cancelled - Patient discharged Performed By: #### L 100.0100 ####[facility] [address] [place], [address] MCHC Normal 32-36 [facility] Comment on above: Result Comment: Canc elled via OM: Order cancelled - Patient discharged Performed By: #### L 100.0100 ####[facility] [address] [place], [address] MCV Normal 81-99 [facility] Comment on above: Result Comment: Canc elled via OM: Order cancelled - Patient discharged Performed By: #### L 100.0100 ####[facility] [address] [place], [address] NEUT% Normal 47-70 [facility] Comment on above: Result Comment: Canc elled via OM: Order cancelled - Patient discharged Performed By: #### L 100.0100 ####[facility] [address] [place], [address] PLT Normal 150-450 [facility] Comment on above: Result Comment: Canc elled via OM: Order cancelled - Patient discharged Performed By: #### L 100.0100 ####[facility] [address] [place], [address] RBC Normal 4.2-5.4 [facility] Comment on above: Result Comment: Canc elled via OM: Order cancelled - Patient discharged Performed By: #### L 100.0100 ####[facility] [address] [place], [address] RDW CV Normal 11.6-14.6 [facility] Comment on above: Result Comment: Canc elled via OM: Order cancelled - Patient discharged Performed By: #### L 100.0100 ####[facility] [address] [place], [address] RDW SD Normal 35.1-43.9 [facility] Comment on above: Result Comment: Canc elled via OM: Order cancelled - Patient discharged Performed By: #### L 100.0100 ####[facility] [address] [place], [address] WBC Normal 4.4-11.0 [facility] Comment on above: Result Comment: Canc elled via OM: Order cancelled - Patient discharged Performed By: #### L 100.0100 ####[facility] [address] [place], [address] Anion gap in Serum or Plasma Ordered By: Vimal Angulo on 06-10-2025 Anion gap [Moles/Vol] 10 mmol/L 5-15 [facility] BUN/creatinine ratioOrdered By: Vimal Angulo on 06-10-2025 Urea nitrogen/Creatinine [Mass ratio] 20.8 mg/mg High 10-20 [facility] Basic Metabolic Profile (BMP )on 06-10-2025 BUN/CRE 20.8 RATIO High 10-20 [facility] Comment on above: Order Comment: 111.1 Performed By: #### L 500.2500, L100.0500 ####[facility] [address] [place], [address] Calcium [Mass/Vol] 9.2 mg/dL Normal 7.6-11.0 [facility] Comment on above: Order Comment: 111.1 Performed By: #### L 500.2500, L100.0500 ####[facility] [address] [place], [address] Chloride [Moles/Vol] 103 mmol/L Normal 98-108 [facility] Comment on above: Order Comment: 111.1 Performed By: #### L 500.2500, L100.0500 ####[facility] [address] [place], [address] CO2 [Moles/Vol] 25.2 mmol/L Normal 21.0-32.0 [facility] Comment on above: Order Comment: 111.1 Performed By: #### L 500.2500, L100.0500 ####[facility] [address] [place], [address] Creatinine [Mass/Vol] 0.68 mg/dL Low 0.70-1.20 [facility] Comment on above: Order Comment: 111.1 Performed By: #### L 500.2500, L100.0500 ####[facility] [address] [place], [address] GAP 10 Normal 5-15 [facility] Comment on above: Order Comment: 111.1 Performed By: #### L 500.2500, L100.0500 ####[facility] [address] [place], [address] GFR/1.73 sq M.predicted among non-blacks MDRD (S/P/Bld) [Vol rate/Area] 85 mL/min/{1.73_m2} Normal >60 [facility] Comment on above: Order Comment: 111.1 Result Comment: mL/m in/1.73m2 CKD-EPI Creatinine Equation (2020) Performed By: #### L 500.2500, L100.0500 ####[facility] [address] [place], [address] Glucose [Mass/Vol] 104 mg/dL High 70-99 [facility] Comment on above: Order Comment: 111.1 Performed By: #### L 500.2500, L100.0500 ####[facility] [address] [place], [address] Potassium [Moles/Vol] 4.0 mmol/L Normal 3.3-5.1 [facility] Comment on above: Order Comment: 111.1 Performed By: #### L 500.2500, L100.0500 ####[facility] [address] [place], [address] Sodium [Moles/Vol] 137 mmol/L Normal 133-145 [facility] Comment on above: Order Comment: 111.1 Performed By: #### L 500.2500, L100.0500 ####[facility] [address] [place], [address] Urea nitrogen [Mass/Vol] 14 mg/dL Normal 4-19 [facility] Comment on above: Order Comment: 111.1 Performed By: #### L 500.2500, L100.0500 ####[facility] [address] [place], [address] CBC-Complete Blood Cnt No Di ffon 06-10-2025 Erythrocyte distribution width (RBC) [Ratio] 14.8 % High 11.6-14.6 [facility] Comment on above: Order Comment: 111.1 Performed By: #### L 500.2500, L100.0500 ####[facility] [address] [place], [address] Hematocrit (Bld) [Volume fraction] 32.1 % Low 37-47 [facility] Comment on above: Order Comment: 111.1 Performed By: #### L 500.2500, L100.0500 ####[facility] [address] [place], [address] Hemoglobin (Bld) [Mass/Vol] 10.4 g/dL Low 12.0-15.0 [facility] Comment on above: Order Comment: 111.1 Performed By: #### L 500.2500, L100.0500 ####[facility] [address] [place], [address] MCH (RBC) [Entitic mass] 30.8 pg Normal 27.0-32.0 [facility] Comment on above: Order Comment: 111.1 Performed By: #### L 500.2500, L100.0500 ####[facility] [address] [place], [address] MCHC (RBC) [Mass/Vol] 32.4 g/dL Normal 32-36 [facility] Comment on above: Order Comment: 111.1 Performed By: #### L 500.2500, L100.0500 ####[facility] [address] [place], [address] MCV (RBC) [Entitic vol] 95.0 fL Normal 81-99 [facility] Comment on above: Order Comment: 111.1 Performed By: #### L 500.2500, L100.0500 ####[facility] [address] [place], [address] Platelet mean volume (Bld) [Entitic vol] 10.3 fL Normal 6.2-12.0 [facility] Comment on above: Order Comment: 111.1 Performed By: #### L 500.2500, L100.0500 ####[facility] [address] [place], [address] Platelets (Bld) [#/Vol] 197 10*3/uL Normal 150-450 [facility] Comment on above: Order Comment: 111.1 Performed By: #### L 500.2500, L100.0500 ####[facility] [address] [place], [address] RBC (Bld) [#/Vol] 3.38 10*6/uL Low 4.2-5.4 [facility] Comment on above: Order Comment: 111.1 Performed By: #### L 500.2500, L100.0500 ####[facility] [address] [place], [address] RDW SD 51.8 fl High 35.1-43.9 [facility] Comment on above: Order Comment: 111.1 Performed By: #### L 500.2500, L100.0500 ####[facility] [address] [place], [address] WBC (Bld) [#/Vol] 5.5 10*3/uL Normal 4.4-11.0 [facility] Comment on above: Order Comment: 111.1 Performed By: #### L 500.2500, L100.0500 ####[facility] [address] [place], [address] Carbon dioxide, total [Moles /volume] in Central venous bloodOrdered By: Vimal Angulo on 06-10-2025 CO2 [Moles/Vol] 25.2 mmol/L 21.0-32.0 [facility] Chloride assayOrdered By: Jairon Angulo on 06-10-2025 Chloride [Moles/Vol] 103 mmol/L 98-108 [facility] Erythrocyte distribution wid th ratioOrdered By: Vimal Angulo on 06-10-2025 Erythrocyte distribution width (RBC) [Ratio] 14.8 % High 11.6-14.6 [facility] Erythrocyte distribution wid th standard deviationOrdered By: Vimal Angulo on 06-10-2025 Erythrocyte distribution width (RBC) [Ratio] 51.8 fl High 35.1-43.9 [facility] Glomerular filtration rate ( GFR) estimation/1.73 sq m using serum, plasma, or whole bOrdered By: Vimal Angulo on 06-10-2025 GFR/1.73 sq M.predicted among non-blacks MDRD (S/P/Bld) [Vol rate/Area] 85 mL/min/{1.73_m2} >60 [facility] Hematocrit Auto (Bld) [Volum e fraction]Ordered By: Vimal Angulo on 06-10-2025 Hematocrit (Bld) [Volume fraction] 32.1 % Low 37-47 [facility] Hemoglobin measurementOrdere d By: Vimal Angulo on 06-10-2025 Hemoglobin (Bld) [Mass/Vol] 10.4 g/dL Low 12.0-15.0 [facility] MCV (mean corpuscular volume ) determinationOrdered By: Vimal Angulo on 06-10-2025 MCV (RBC) [Entitic vol] 95.0 fL 81-99 [facility] Mean corpuscular hemoglobin (MCH) determinationOrdered By: Vimal Angulo on 06-10-2025 MCH (RBC) [Entitic mass] 30.8 pg 27.0-32.0 [facility] Platelet countOrdered By: Jairon Angulo on 06-10-2025 Platelets (Bld) [#/Vol] 197 10*3/uL 150-450 [facility] Potassium measurement (mass/ volume)Ordered By: Vimal Angulo on 06-10-2025 Potassium (Unsp spec) [Mass/Vol] 4.0 mmol/L 3.3-5.1 [facility] RBC Auto (Bld) [#/Vol]Ordere d By: Vimal Angulo on 06-10-2025 RBC (Bld) [#/Vol] 3.38 10*6/uL Low 4.2-5.4 [facility] Serum creatinine measurement (mass/volume)Ordered By: Vimal Angulo on 06-10-2025 Creatinine [Mass/Vol] 0.68 mg/dL Low 0.70-1.20 [facility] Serum glucose measurement (m ass/volume)Ordered By: Vimal Angulo on 06-10-2025 Glucose [Mass/Vol] 104 mg/dL High 70-99 [facility] Serum or plasma calcium susy urement (mass/volume)Ordered By: Vimal Angulo on 06-10-2025 Calcium [Mass/Vol] 9.2 mg/dL 7.6-11.0 [facility] Serum or plasma urea nitroge n measurement (mass/volume)Ordered By: Vimal Angulo on 06-10-2025 Urea nitrogen [Mass/Vol] 14 mg/dL 4-19 [facility] Sodium levelOrdered By: Brooks Angulo on 06-10-2025 Sodium [Moles/Vol] 137 mmol/L 133-145 [facility] White blood cell (WBC) count Ordered By: Vimal Angulo on 06-10-2025 WBC (Bld) [#/Vol] 5.5 10*3/uL 4.4-11.0 [facility] Anion gap in Serum or Plasma Ordered By: Vimal Angulo on 06-08-2025 Anion gap [Moles/Vol] 10 mmol/L 5-15 [facility] BUN/creatinine ratioOrdered By: Vimal Angulo on 06-08-2025 Urea nitrogen/Creatinine [Mass ratio] 26.8 mg/mg High 10-20 [facility] Bilirubin, totalOrdered By: Vimal Angulo on 06-08-2025 Bilirubin [Mass/Vol] 0.42 mg/dL 0.00-1.30 [facility] CBC-Complete Blood Cnt No Di ffon 06-08-2025 Erythrocyte distribution width (RBC) [Ratio] 14.9 % High 11.6-14.6 [facility] Comment on above: Order Comment: 111 Performed By: #### L 501.9310, L501.9985, L100.0500, L500.4100, L500.4050, L501.9520 ####[facility] [address] [place], [address] Hematocrit (Bld) [Volume fraction] 31.1 % Low 37-47 [facility] Comment on above: Order Comment: 111 Performed By: #### L 501.9310, L501.9985, L100.0500, L500.4100, L500.4050, L501.9520 ####[facility] [address] [place], [address] Hemoglobin (Bld) [Mass/Vol] 10.0 g/dL Low 12.0-15.0 [facility] Comment on above: Order Comment: 111 Performed By: #### L 501.9310, L501.9985, L100.0500, L500.4100, L500.4050, L501.9520 ####[facility] [address] [place], [address] MCH (RBC) [Entitic mass] 30.6 pg Normal 27.0-32.0 [facility] Comment on above: Order Comment: 111 Performed By: #### L 501.9310, L501.9985, L100.0500, L500.4100, L500.4050, L501.9520 ####[facility] [address] [place], [address] MCHC (RBC) [Mass/Vol] 32.2 g/dL Normal 32-36 [facility] Comment on above: Order Comment: 111 Performed By: #### L 501.9310, L501.9985, L100.0500, L500.4100, L500.4050, L501.9520 ####[facility] [address] [place], [address] MCV (RBC) [Entitic vol] 95.1 fL Normal 81-99 [facility] Comment on above: Order Comment: 111 Performed By: #### L 501.9310, L501.9985, L100.0500, L500.4100, L500.4050, L501.9520 ####[facility] [address] [place], [address] Platelet mean volume (Bld) [Entitic vol] 9.9 fL Normal 6.2-12.0 [facility] Comment on above: Order Comment: 111 Performed By: #### L 501.9310, L501.9985, L100.0500, L500.4100, L500.4050, L501.9520 ####[facility] [address] [place], [address] Platelets (Bld) [#/Vol] 199 10*3/uL Normal 150-450 [facility] Comment on above: Order Comment: 111 Performed By: #### L 501.9310, L501.9985, L100.0500, L500.4100, L500.4050, L501.9520 ####[facility] [address] [place], [address] RBC (Bld) [#/Vol] 3.27 10*6/uL Low 4.2-5.4 [facility] Comment on above: Order Comment: 111 Performed By: #### L 501.9310, L501.9985, L100.0500, L500.4100, L500.4050, L501.9520 ####[facility] [address] [place], [address] RDW SD 52.9 fl High 35.1-43.9 [facility] Comment on above: Order Comment: 111 Performed By: #### L 501.9310, L501.9985, L100.0500, L500.4100, L500.4050, L501.9520 ####[facility] [address] [place], [address] WBC (Bld) [#/Vol] 5.1 10*3/uL Normal 4.4-11.0 [facility] Comment on above: Order Comment: 111 Performed By: #### L 501.9310, L501.9985, L100.0500, L500.4100, L500.4050, L501.9520 ####[facility] [address] [place], [place], [id number] Calculated very low density lipoprotein (VLDL) cholesterol measurementOrdered By: Vimal Angulo on 06-08-2025 Calculated very low density lipoprotein (VLDL) cholesterol measurement 12 mg/dL 5-40 [facility] Carbon dioxide, total [Moles /volume] in Central venous bloodOrdered By: Vimal Angulo on 06-08-2025 CO2 [Moles/Vol] 25.3 mmol/L 21.0-32.0 [facility] Chloride assayOrdered By: Jairon Angulo on 06-08-2025 Chloride [Moles/Vol] 103 mmol/L 98-108 [facility] Comprehensive Metabolic Prof ilon 06-08-2025 Albumin [Mass/Vol] 3.2 g/dL Low 3.4-4.8 [facility] Comment on above: Order Comment: 111 Performed By: #### L 501.9310, L501.9985, L100.0500, L500.4100, L500.4050, L501.9520 ####[facility] [address] [place], [address] Albumin/Globulin [Mass ratio] 1.2 {ratio} Normal 0.9-2.4 [facility] Comment on above: Order Comment: 111 Performed By: #### L 501.9310, L501.9985, L100.0500, L500.4100, L500.4050, L501.9520 ####[facility] [address] [place], [address] ALK PHOS 114 U/L High 35-104 [facility] Comment on above: Order Comment: 111 Performed By: #### L 501.9310, L501.9985, L100.0500, L500.4100, L500.4050, L501.9520 ####[facility] [address] [place], [address] ALT [Catalytic activity/Vol] 5 U/L Normal <=34 [facility] Comment on above: Order Comment: 111 Performed By: #### L 501.9310, L501.9985, L100.0500, L500.4100, L500.4050, L501.9520 ####[facility] [address] [place], [address] AST [Catalytic activity/Vol] 43 U/L High <=31 [facility] Comment on above: Order Comment: 111 Performed By: #### L 501.9310, L501.9985, L100.0500, L500.4100, L500.4050, L501.9520 ####[facility] [address] [place], [address] Bilirubin [Mass/Vol] 0.42 mg/dL Normal 0.00-1.30 [facility] Comment on above: Order Comment: 111 Performed By: #### L 501.9310, L501.9985, L100.0500, L500.4100, L500.4050, L501.9520 ####[facility] [address] [place], [address] BUN/CRE 26.8 RATIO High 10-20 [facility] Comment on above: Order Comment: 111 Performed By: #### L 501.9310, L501.9985, L100.0500, L500.4100, L500.4050, L501.9520 ####[facility] [address] [place], [address] Calcium [Mass/Vol] 9.2 mg/dL Normal 7.6-11.0 [facility] Comment on above: Order Comment: 111 Performed By: #### L 501.9310, L501.9985, L100.0500, L500.4100, L500.4050, L501.9520 ####[facility] [address] [place], [address] Chloride [Moles/Vol] 103 mmol/L Normal 98-108 [facility] Comment on above: Order Comment: 111 Performed By: #### L 501.9310, L501.9985, L100.0500, L500.4100, L500.4050, L501.9520 ####[facility] [address] [place], [address] CO2 [Moles/Vol] 25.3 mmol/L Normal 21.0-32.0 [facility] Comment on above: Order Comment: 111 Performed By: #### L 501.9310, L501.9985, L100.0500, L500.4100, L500.4050, L501.9520 ####[facility] [address] [place], [address] Creatinine [Mass/Vol] 0.64 mg/dL Low 0.70-1.20 [facility] Comment on above: Order Comment: 111 Performed By: #### L 501.9310, L501.9985, L100.0500, L500.4100, L500.4050, L501.9520 ####[facility] [address] [place], [address] GAP 10 Normal 5-15 [facility] Comment on above: Order Comment: 111 Performed By: #### L 501.9310, L501.9985, L100.0500, L500.4100, L500.4050, L501.9520 ####[facility] [address] [place], [address] GFR/1.73 sq M.predicted among non-blacks MDRD (S/P/Bld) [Vol rate/Area] 86 mL/min/{1.73_m2} Normal >60 [facility] Comment on above: Order Comment: 111 Result Comment: mL/m in/1.73m2 CKD-EPI Creatinine Equation (2020) Performed By: #### L 501.9310, L501.9985, L100.0500, L500.4100, L500.4050, L501.9520 ####[facility] [address] [place], [address] Globulin (S) [Mass/Vol] 2.7 g/dL Normal 2.2-4.2 [facility] Comment on above: Order Comment: 111 Performed By: #### L 501.9310, L501.9985, L100.0500, L500.4100, L500.4050, L501.9520 ####[facility] [address] [place], [address] Glucose [Mass/Vol] 104 mg/dL High 70-99 [facility] Comment on above: Order Comment: 111 Performed By: #### L 501.9310, L501.9985, L100.0500, L500.4100, L500.4050, L501.9520 ####[facility] [address] [place], [address] Potassium [Moles/Vol] 3.6 mmol/L Normal 3.3-5.1 [facility] Comment on above: Order Comment: 111 Performed By: #### L 501.9310, L501.9985, L100.0500, L500.4100, L500.4050, L501.9520 ####[facility] [address] [place], [address] Sodium [Moles/Vol] 138 mmol/L Normal 133-145 [facility] Comment on above: Order Comment: 111 Performed By: #### L 501.9310, L501.9985, L100.0500, L500.4100, L500.4050, L501.9520 ####[facility] [address] [place], [address] T PROT 5.9 g/dL Normal 5.9-8.4 [facility] Comment on above: Order Comment: 111 Performed By: #### L 501.9310, L501.9985, L100.0500, L500.4100, L500.4050, L501.9520 ####[facility] [address] [place], [address] Urea nitrogen [Mass/Vol] 17 mg/dL Normal 4-19 [facility] Comment on above: Order Comment: 111 Performed By: #### L 501.9310, L501.9985, L100.0500, L500.4100, L500.4050, L501.9520 ####[facility] [address] [place], [address] Erythrocyte distribution wid th ratioOrdered By: Vimal Angulo on 06-08-2025 Erythrocyte distribution width (RBC) [Ratio] 14.9 % High 11.6-14.6 [facility] Erythrocyte distribution wid th standard deviationOrdered By: Vimal Angulo on 06-08-2025 Erythrocyte distribution width (RBC) [Ratio] 52.9 fl High 35.1-43.9 [facility] Glomerular filtration rate ( GFR) estimation/1.73 sq m using serum, plasma, or whole bOrdered By: Vimal Angulo on 06-08-2025 GFR/1.73 sq M.predicted among non-blacks MDRD (S/P/Bld) [Vol rate/Area] 86 mL/min/{1.73_m2} >60 [facility] Comment on above: mL/min/1.73m2 CKD-EP I Creatinine Equation (2020) Hematocrit Auto (Bld) [Volum e fraction]Ordered By: Vimal Angulo on 06-08-2025 Hematocrit (Bld) [Volume fraction] 31.1 % Low 37-47 [facility] Hemoglobin A1con 06-08-2025 HbA1c (Bld) [Mass fraction] 5.2 % Normal <=5.6 [facility] Comment on above: Order Comment: 111 Result Comment: Norm al < 5.7 % Prediabetic 5.7 - 6.4 % Diabetic >or= 6.5 % Please note range changes. Performed By: #### L 501.9310, L501.9985, L100.0500, L500.4100, L500.4050, L501.9520 ####[facility] [address] [place], [place], [address] Hemoglobin A1c percentageOrd ered By: Vimal Angulo on 06-08-2025 HbA1c (Bld) [Mass fraction] 5.2 % <5.7 [facility] Comment on above: Normal < 5.7 % Predi abetic 5.7 - 6.4 % Diabetic >or= 6.5 % Please note range changes. Hemoglobin measurementOrdere d By: Vimal Angulo on 06-08-2025 Hemoglobin (Bld) [Mass/Vol] 10.0 g/dL Low 12.0-15.0 [facility] LDL calc ser/plasOrdered By: Vimal Angulo on 06-08-2025 Cholesterol in LDL [Mass/Vol] 62 mg/dL [facility] Comment on above: Injkozjexv=695-682 m g/dL & Higher Xeoq=488 mg/dL or greaterFriedwald Equation for LDL-C Laboratory - Chemistry and C hemistry - challengeOrdered By: Vimal Angulo on 06-08-2025 AST [Catalytic activity/Vol] 43 U/L High <32 [facility] Lipid Profileon 06-08-2025 CHOL:HDL 2.24 Normal [facility] Comment on above: Order Comment: 111 Performed By: #### L 501.9310, L501.9985, L100.0500, L500.4100, L500.4050, L501.9520 ####[facility] [address] [place], [address] Cholesterol [Mass/Vol] 135 mg/dL Normal <=200 [facility] Comment on above: Order Comment: 111 Result Comment: Chol esterol level, Desirable <200 mg/dLBorderline high cholesterol 200-239 mg/dLHigh cholesterol >=240 mg/dLRecommendations of the NCEP Adult Treatment Panel for thefollowing risk-cutoff thresholds for the [place] Americanpulation. Performed By: #### L 501.9310, L501.9985, L100.0500, L500.4100, L500.4050, L501.9520 ####[facility] [address] [place], [address] Cholesterol in HDL [Mass/Vol] 60 mg/dL Normal [facility] Comment on above: Order Comment: 111 Result Comment: Elaine onal Cholesterol Education Program (NCEP) guidelines:<40 mg/dL: Low HDL-cholesterol (major risk factor for CHD)>= 60 mg/dL: High HDL-cholesterol (negative risk factor forCHD)HDL-cholesterol is affected by a number of factors, e.g.smoking, exercise, hormones, sex and age. Performed By: #### L 501.9310, L501.9985, L100.0500, L500.4100, L500.4050, L501.9520 ####[facility] [address] [place], [address] Cholesterol in LDL [Mass/Vol] 62 mg/dL Normal [facility] Comment on above: Order Comment: 111 Result Comment: Bord coapne=723-600 mg/dL Higher Tife=055 mg/dL or greaterFriedwald Equation for LDL-C Performed By: #### L 501.9310, L501.9985, L100.0500, L500.4100, L500.4050, L501.9520 ####[facility] [address] [place], [address] Cholesterol in VLDL [Mass/Vol] 12 mg/dL Normal 5-40 [facility] Comment on above: Order Comment: 111 Performed By: #### L 501.9310, L501.9985, L100.0500, L500.4100, L500.4050, L501.9520 ####[facility] [address] [place], [address] Triglyceride [Mass/Vol] 62 mg/dL Normal [facility] Comment on above: Order Comment: 111 Result Comment: The drugs N-Acetylcysteine and Metamizole may falselydepress this assay.Normal range: <150 mg/dLBorderline High: 150-199 mg/dLHigh: 200-499 mg/dLVery High: >500 mg/dL Performed By: #### L 501.9310, L501.9985, L100.0500, L500.4100, L500.4050, L501.9520 ####[facility] [address] [place], [place], [id number] MCV (mean corpuscular volume ) determinationOrdered By: Vimal Angulo on 06-08-2025 MCV (RBC) [Entitic vol] 95.1 fL 81-99 [facility] Mean corpuscular hemoglobin (MCH) determinationOrdered By: Vimal Angulo on 06-08-2025 MCH (RBC) [Entitic mass] 30.6 pg 27.0-32.0 [facility] Mean corpuscular hemoglobin concentration (MCHC) determinationOrdered By: Vimal Angulo on 06-08-2025 MCHC (RBC) [Mass/Vol] 32.2 g/dL 32-36 [facility] Mean platelet volume determi nationOrdered By: Vimal Angulo on 06-08-2025 Platelet mean volume (Bld) [Entitic vol] 9.9 fL 6.2-12.0 [facility] No Panel InformationOrdered By: Vimal Angulo on 06-08-2025 43 U/L High <32 [facility] Platelet countOrdered By: Jairon Angulo on 06-08-2025 Platelets (Bld) [#/Vol] 199 10*3/uL 150-450 [facility] Potassium measurement (mass/ volume)Ordered By: Vimal Angulo on 06-08-2025 Potassium (Unsp spec) [Mass/Vol] 3.6 mmol/L 3.3-5.1 [facility] RBC Auto (Bld) [#/Vol]Ordere d By: Vimal Angulo on 06-08-2025 RBC (Bld) [#/Vol] 3.27 10*6/uL Low 4.2-5.4 [facility] Screening total cholesterol/ high density lipoprotein (HDL) cholesterol ratioOrdered By: Vimal Angulo on 06-08-2025 Cholesterol.total/Cho lesterol in HDL [Mass ratio] 2.24 {ratio} [facility] Serum creatinine measurement (mass/volume)Ordered By: Vimal Angulo on 06-08-2025 Creatinine [Mass/Vol] 0.64 mg/dL Low 0.70-1.20 [facility] Serum globulin measurementOr dered By: Vimal Angulo on 06-08-2025 Globulin (S) [Mass/Vol] 2.7 g/dL 2.2-4.2 [facility] Serum glucose measurement (m ass/volume)Ordered By: Vimal Angulo on 06-08-2025 Glucose [Mass/Vol] 104 mg/dL High 70-99 [facility] Serum or plasma alanine woodall otransferase (ALT) measurementOrdered By: Vimal Angulo on 06-08-2025 ALT [Catalytic activity/Vol] 5 U/L <35 [facility] Serum or plasma albumin susy urement (mass/volume)Ordered By: Vimal Angulo on 06-08-2025 Albumin [Mass/Vol] 3.2 g/dL Low 3.4-4.8 [facility] Serum or plasma albumin/glob ulin mass ratioOrdered By: Vimal Angulo on 06-08-2025 Albumin/Globulin [Mass ratio] 1.2 {ratio} 0.9-2.4 [facility] Serum or plasma alkaline taisha sphatase measurementOrdered By: Vimal Angulo on 06-08-2025 ALP [Catalytic activity/Vol] 114 U/L High 35-104 [facility] Serum or plasma calcium susy urement (mass/volume)Ordered By: Vimal Angulo on 06-08-2025 Calcium [Mass/Vol] 9.2 mg/dL 7.6-11.0 [facility] Serum or plasma cholesterol in HDL measurement (mass/volume)Ordered By: Vimal Angulo on 06-08-2025 Cholesterol in HDL [Mass/Vol] 60 mg/dL >40 [facility] Comment on above: National Cholesterol Education Program (NCEP) guidelines:<40 mg/dL: Low HDL-cholesterol (major risk factor for CHD)>= 60 mg/dL: High HDL-cholesterol (negative risk factor for CHD)HDL-cholesterol is affected by a number of factors, e.g. smoking, exercise, hormones, sex and age. Serum or plasma cholesterol measurement (mass/volume)Ordered By: Vimal Angulo on 06-08-2025 Cholesterol [Mass/Vol] 135 mg/dL <201 [facility] Comment on above: Cholesterol level, D esirable <200 mg/dLBorderline high cholesterol 200-239 mg/dLHigh cholesterol >=240 mg/dLRecommendations of the NCEP Adult Treatment Panel for the following risk-cutoff thresholds for the [place] population. Serum or plasma urea nitroge n measurement (mass/volume)Ordered By: Vimal Angulo on 06-08-2025 Urea nitrogen [Mass/Vol] 17 mg/dL 4-19 [facility] Sodium levelOrdered By: Brooks Angulo on 06-08-2025 Sodium [Moles/Vol] 138 mmol/L 133-145 [facility] T4 Total, Thyroxinon 025 T4 [Mass/Vol] 6.9 ug/dL Normal 4.8-13.9 [facility] Comment on above: Order Comment: 111 Performed By: #### L 501.9310, L501.9985, L100.0500, L500.4100, L500.4050, L501.9520 ####[facility] [address] [place], [address] TSH DL <= 0.005 mIU/L QnOrde red By: Vimal Angulo on 06-08-2025 TSH Qn 1.760 uIU/mL 0.300-4.20 0 [facility] Thyroid Stim Hormone (TSH)on 06-08-2025 TSH 1.760 uIU/mL Normal 0.300-4.20 0 [facility] Comment on above: Order Comment: 111 Performed By: #### L 501.9310, L501.9985, L100.0500, L500.4100, L500.4050, L501.9520 ####[facility] [address] [place], [place], [id number] ThyroxineOrdered By: Vimal lockhart on 06-08-2025 T4 [Mass/Vol] 6.9 ug/dL 4.8-13.9 [facility] Total proteinOrdered By: Trent Angulo on 06-08-2025 Protein [Mass/Vol] 5.9 g/dL 5.9-8.4 [facility] Triglycerides measurementOrd ered By: Vimal Angulo on 06-08-2025 Triglyceride [Mass/Vol] 62 mg/dL <199 [facility] Comment on above: The drugs N-Acetylcy steine and Metamizole may falsely depress this assay. Normal range: <150 mg/dLBorderline High: 150-199 mg/dLHigh: 200-499 mg/dLVery High: >500 mg/dL White blood cell (WBC) count Ordered By: Vimal Angulo on 06-08-2025 WBC (Bld) [#/Vol] 5.1 10*3/uL 4.4-11.0 [facility] Basic Metabolic Profile (BMP )on 06-05-2025 BUN Normal 4-19 [facility] Comment on above: Result Comment: Canc elled via OM: Ordered/Entered in error Performed By: #### L 500.2500 ####[facility] [address] [place], [place], [id number] BUN/CRE Normal 10-20 [facility] Comment on above: Result Comment: Canc elled via OM: Ordered/Entered in error Performed By: #### L 500.2500 ####[facility] [address] [place], [address] Calcium Normal 7.6-11.0 [facility] Comment on above: Result Comment: Canc elled via OM: Ordered/Entered in error Performed By: #### L 500.2500 ####[facility] [address] [place], [address] CL Normal 98-108 [facility] Comment on above: Result Comment: Canc elled via OM: Ordered/Entered in error Performed By: #### L 500.2500 ####[facility] [address] [place], [address] CO2 Normal 21.0-32.0 [facility] Comment on above: Result Comment: Canc elled via OM: Ordered/Entered in error Performed By: #### L 500.2500 ####[facility] [address] [place], [address] CREAT,SERUM Normal 0.70-1.20 [facility] Comment on above: Result Comment: Canc elled via OM: Ordered/Entered in error Performed By: #### L 500.2500 ####[facility] [address] [place], [address] eGFR Normal >60 [facility] Comment on above: Result Comment: Canc elled via OM: Ordered/Entered in error Performed By: #### L 500.2500 ####[facility] [address] [place], [address] GAP Normal 5-15 [facility] Comment on above: Result Comment: Canc elled via OM: Ordered/Entered in error Performed By: #### L 500.2500 ####[facility] [address] [place], [address] GLU Normal 70-99 [facility] Comment on above: Result Comment: Canc elled via OM: Ordered/Entered in error Performed By: #### L 500.2500 ####[facility] [address] [place], [address] Potassium Normal 3.3-5.1 [facility] Comment on above: Result Comment: Canc elled via OM: Ordered/Entered in error Performed By: #### L 500.2500 ####[facility] [address] [place], [address] Basic Metabolic Profile (BMP) Normal 133-145 [facility] Comment on above: Result Comment: Canc elled via OM: Ordered/Entered in error Performed By: #### L 500.2500 ####[facility] [address] [place], [address] [employer] Decub and/or Erecton 06-04-2025 Abd Inc Decub and/or Erect Normal [facility] Absolute lymphocyte countOrd ered By: Eh Huddleston on 06-04-2025 Lymphocytes Auto (Unsp spec) [#/Vol] 1.26 10*3/uL 0.83-4.51 [facility] Absolute neutrophil countOrd ered By: Eh Huddleston on 06-04-2025 Neutrophils (Bld) [#/Vol] 4.0 10*3/uL 2.0-7.7 [facility] Anion gap in Serum or Plasma Ordered By: Eh Huddleston on 06-04-2025 Anion gap [Moles/Vol] 11 mmol/L 5-15 [facility] Automated lymphocyte count a s percentage of total leukocytesOrdered By: Eh Huddleston on 06-04-2025 Lymphocytes/100 WBC Auto (Unsp spec) 19.7 % 19-41 [facility] BUN/creatinine ratioOrdered By: Eh Huddleston on 06-04-2025 Urea nitrogen/Creatinine [Mass ratio] 33.2 mg/mg High 10- [facility] Basic Metabolic Profile (BMP )on 06-04-2025 BUN/CRE 33.2 RATIO High 08-16 [facility] Comment on above: Performed By: #### L 500.2500 ####[facility] [address] [place], [address] Calcium [Mass/Vol] 9.1 mg/dL Normal 7.6-11.0 [facility] Comment on above: Performed By: #### L 500.2500 ####[facility] [address] [place], [address] Chloride [Moles/Vol] 102 mmol/L Normal 98-108 [facility] Comment on above: Performed By: #### L 500.2500 ####[facility] [address] [place], [address] CO2 [Moles/Vol] 24.6 mmol/L Normal 21.0-32.0 [facility] Comment on above: Performed By: #### L 500.2500 ####[facility] [address] [place], [address] Creatinine [Mass/Vol] 0.68 mg/dL Low 0.70-1.20 [facility] Comment on above: Performed By: #### L 500.2500 ####[facility] [address] [place], [address] ECRCL 53.29 ml/min Normal 50-250 [facility] Comment on above: Performed By: #### L 500.2500 ####[facility] [address] [place], [address] GAP 11 Normal 5-15 [facility] Comment on above: Performed By: #### L 500.2500 ####[facility] [address] [place], [address] GFR/1.73 sq M.predicted among non-blacks MDRD (S/P/Bld) [Vol rate/Area] 85 mL/min/{1.73_m2} Normal >60 [facility] Comment on above: Result Comment: mL/m in/1.73m2 CKD-EPI Creatinine Equation (2020) Performed By: #### L 500.2500 ####[facility] [address] [place], [address] Glucose [Mass/Vol] 104 mg/dL High 70-99 [facility] Comment on above: Performed By: #### L 500.2500 ####[facility] [address] [place], [address] Potassium [Moles/Vol] 3.5 mmol/L Normal 3.3-5.1 [facility] Comment on above: Performed By: #### L 500.2500 ####[facility] [address] [place], [address] Sodium [Moles/Vol] 137 mmol/L Normal 133-145 [facility] Comment on above: Performed By: #### L 500.2500 ####[facility] [address] [place], [address] Urea nitrogen [Mass/Vol] 23 mg/dL High 4-19 [facility] Comment on above: Performed By: #### L 500.2500 ####[facility] [address] [place], [address] Basophil percentageOrdered B y: Eh Huddleston on 06-04-2025 Basophils/100 WBC (Bld) 0.8 % 0-1 [facility] CBC W/Diff, Automatedon Absolute Lymph 1.26 X10 3/uL Normal 0.83-4.51 [facility] Comment on above: Performed By: #### L 100.0100 ####[facility] [address] [place], [address] Absolute Neut 4.0 X10 3/uL Normal 2.0-7.7 [facility] Comment on above: Performed By: #### L 100.0100 ####[facility] [address] [place], [address] Basophils/100 WBC (Bld) 0.8 % Normal 0-1 [facility] Comment on above: Performed By: #### L 100.0100 ####[facility] [address] [place], [address] Eosinophils/100 WBC (Bld) 5.1 % High 0-5 [facility] Comment on above: Performed By: #### L 100.0100 ####[facility] [address] [place], [address] Erythrocyte distribution width (RBC) [Ratio] 15.4 % High 11.6-14.6 [facility] Comment on above: Performed By: #### L 100.0100 ####[facility] [address] [place], [address] Hematocrit (Bld) [Volume fraction] 29.4 % Low 37-47 [facility] Comment on above: Performed By: #### L 100.0100 ####[facility] [address] [place], [address] Hemoglobin (Bld) [Mass/Vol] 9.3 g/dL Low 12.0-15.0 [facility] Comment on above: Performed By: #### L 100.0100 ####[facility] [address] [place], [address] IG% 0.300 Normal 0.0-0.9 [facility] Comment on above: Result Comment: IG% - Immature Granulocytes (promyelocytes, myelocytes andmetamyelocytes) > 1% indicates that a LEFT SHIFT is Present. Performed By: #### L 100.0100 ####[facility] [address] [place], [address] Lymphocytes/100 WBC (Bld) 19.7 % Normal 19-41 [facility] Comment on above: Performed By: #### L 100.0100 ####[facility] [address] [place], [address] MCH (RBC) [Entitic mass] 30.4 pg Normal 27.0-32.0 [facility] Comment on above: Performed By: #### L 100.0100 ####[facility] [address] [place], [address] MCHC (RBC) [Mass/Vol] 31.6 g/dL Low 32-36 [facility] Comment on above: Performed By: #### L 100.0100 ####[facility] [address] [place], [address] MCV (RBC) [Entitic vol] 96.1 fL Normal 81-99 [facility] Comment on above: Performed By: #### L 100.0100 ####[facility] [address] [place], [address] Monocytes/100 WBC (Bld) 11.2 % High 0-10 [facility] Comment on above: Performed By: #### L 100.0100 ####[facility] [address] [place], [address] Neutrophils/100 WBC (Bld) 62.9 % Normal 47-70 [facility] Comment on above: Performed By: #### L 100.0100 ####[facility] [address] [place], [address] Nucleated RBC (Bld) [#/Vol] 0 10*3/uL Normal 0-5 [facility] Comment on above: Performed By: #### L 100.0100 ####[facility] [address] [place], [address] Platelet mean volume (Bld) [Entitic vol] 9.9 fL Normal 6.2-12.0 [facility] Comment on above: Performed By: #### L 100.0100 ####[facility] [address] [place], [address] Platelets (Bld) [#/Vol] 214 10*3/uL Normal 150-450 [facility] Comment on above: Performed By: #### L 100.0100 ####[facility] [address] [place], [address] RBC (Bld) [#/Vol] 3.06 10*6/uL Low 4.2-5.4 [facility] Comment on above: Performed By: #### L 100.0100 ####[facility] [address] [place], [address] RDW SD 54.1 fl High 35.1-43.9 [facility] Comment on above: Performed By: #### L 100.0100 ####[facility] [address] [place], [address] WBC (Bld) [#/Vol] 6.4 10*3/uL Normal 4.4-11.0 [facility] Comment on above: Performed By: #### L 100.0100 ####[facility] [address] [place], [address] CDIFF (PCR)on 06-04-2025 CDIFF Normal [facility] Comment on above: Performed By: #### M 100.6795, M100.6796, M100.637 ####[facility] [address] [place], [address] Carbon dioxide, total [Moles /volume] in Central venous bloodOrdered By: Eh Huddleston on 06-04-2025 CO2 [Moles/Vol] 24.6 mmol/L 21.0-32.0 [facility] Chloride assayOrdered By: Collin Huddleston on 06-04-2025 Chloride [Moles/Vol] 102 mmol/L 98-108 [facility] Clostridium Diff Toxin/Agon 06-04-2025 CDIFF (EIA) Normal [facility] Comment on above: Performed By: #### M 100.6795, M100.6796, M100.637 ####[facility] [address] [place], [address] Clostridium difficile detect ion by polymerase chain reactionOrdered By: Eh Huddleston on 06-04-2025 C. difficile DNA ZOEY+probe Ql (Unsp spec) [facility] ENTERIC PATHOGEN PANEL STOOL on 06-04-2025 EP PANEL Normal [facility] Comment on above: Performed By: #### M 100.6768, M100.6796, M100.637 ####[facility] [address] [place], [address] Eosinophil percentageOrdered By: Eh Huddleston on 06-04-2025 Eosinophils/100 WBC (Bld) 5.1 % High 0-5 [facility] Erythrocyte distribution wid th ratioOrdered By: Eh Huddleston on 06-04-2025 Erythrocyte distribution width (RBC) [Ratio] 15.4 % High 11.6-14.6 [facility] Erythrocyte distribution wid th standard deviationOrdered By: Eh Huddleston on 06-04-2025 Erythrocyte distribution width (RBC) [Ratio] 54.1 fl High 35.1-43.9 [facility] Glomerular filtration rate ( GFR) estimation/1.73 sq m using serum, plasma, or whole bOrdered By: Eh Huddleston on 06-04-2025 GFR/1.73 sq M.predicted among non-blacks MDRD (S/P/Bld) [Vol rate/Area] 85 mL/min/{1.73_m2} >60 [facility] Comment on above: mL/min/1.73m2 CKD-EP I Creatinine Equation (2020) Hematocrit Auto (Bld) [Volum e fraction]Ordered By: Eh Huddleston on 06-04-2025 Hematocrit (Bld) [Volume fraction] 29.4 % Low 37-47 [facility] Hemoglobin measurementOrdere d By: Eh Huddleston on 06-04-2025 Hemoglobin (Bld) [Mass/Vol] 9.3 g/dL Low 12.0-15.0 [facility] Immature granulocytes/100 WB C Auto (Bld)Ordered By: Eh Huddleston on 06-04-2025 Immature granulocytes/100 WBC (Bld) 0.300 % 0.0-0.9 [facility] Comment on above: IG% - Immature Granu locytes (promyelocytes, myelocytes and metamyelocytes) > 1% indicates that a LEFT SHIFT is Present. MCV (mean corpuscular volume ) determinationOrdered By: Eh Huddleston on 06-04-2025 MCV (RBC) [Entitic vol] 96.1 fL 81-99 [facility] Mean corpuscular hemoglobin (MCH) determinationOrdered By: Eh Huddleston 06-04-2025 MCH (RBC) [Entitic mass] 30.4 pg 27.0-32.0 [facility] Mean corpuscular hemoglobin concentration (MCHC) determinationOrdered By: Eh Huddleston 06-04-2025 MCHC (RBC) [Mass/Vol] 31.6 g/dL Low 32-36 [facility] Mean platelet volume determi nationOrdered By: Eh Huddleston 06-04-2025 Platelet mean volume (Bld) [Entitic vol] 9.9 fL 6.2-12.0 [facility] Monocyte percentageOrdered B y: Eh Huddleston 06-04-2025 Monocytes/100 WBC (Bld) 11.2 % High 0-10 [facility] Neutrophil percentageOrdered By: Eh Huddleston on 06-04-2025 Neutrophils/100 WBC (Bld) 62.9 % 47-70 [facility] Nucleated red blood cell per centageOrdered By: Eh Huddleston 06-04-2025 Nucleated RBC/100 WBC (Bld) [Ratio] 0 % 0-5 [facility] Platelet countOrdered By: Collin Huddleston on 06-04-2025 Platelets (Bld) [#/Vol] 214 10*3/uL 150-450 [facility] Potassium measurement (mass/ volume)Ordered By: Eh Huddleston 06-04-2025 Potassium (Unsp spec) [Mass/Vol] 3.5 mmol/L 3.3-5.1 [facility] RBC Auto (Bld) [#/Vol]Ordere d By: Eh Huddleston 06-04-2025 RBC (Bld) [#/Vol] 3.06 10*6/uL Low 4.2-5.4 [facility] Serum creatinine measurement (mass/volume)Ordered By: Eh Huddleston 06-04-2025 Creatinine [Mass/Vol] 0.68 mg/dL Low 0.70-1.20 [facility] Serum glucose measurement (m ass/volume)Ordered By: Eh Huddleston on 06-04-2025 Glucose [Mass/Vol] 104 mg/dL High 70-99 [facility] Serum or plasma calcium susy urement (mass/volume)Ordered By: Eh Huddleston on 06-04-2025 Calcium [Mass/Vol] 9.1 mg/dL 7.6-11.0 [facility] Serum or plasma urea nitroge n measurement (mass/volume)Ordered By: Eh Huddleston on 06-04-2025 Urea nitrogen [Mass/Vol] 23 mg/dL High 4-19 [facility] Sodium levelOrdered By: Eh Huddleston on 06-04-2025 Sodium [Moles/Vol] 137 mmol/L 133-145 [facility] Stool Clostridium difficile detectionOrdered By: Eh Huddleston on 06-04-2025 C. difficile Ql (Stl) [facility] White blood cell (WBC) count Ordered By: Eh Huddleston on 06-04-2025 WBC (Bld) [#/Vol] 6.4 10*3/uL 4.4-11.0 [facility] Venous duplex ultrasound rep ortOrdered By: Basim Murillo on 06-02-2025 US Vein [facility] [address] [place] [address] Venous Duplex US, Unilateral 06/01/25 1051 MR#: [id number] Acct: [id number] Name: GOGO WARE p #:[id number] : 1940 85 From: Basim Millard Attending [...] Date Dictated: 06/01/25 1051 Date Transcribed: 06/02/25814 Feed Crusher: Signed [facility] Work Phone: Venous Duplex US, Unilateral on 06-01-2025 Venous Duplex US, Unilateral Normal [facility] Urine Cultureon 05-30-2025 URC Normal [facility] Comment on above: Performed By: #### M 100.2200, L400.0001 ####[facility] [address] [place], [address] Basic Metabolic Profile (BMP )on 05-29-2025 BUN Normal 4-19 [facility] Comment on above: Result Comment: Davin elled via OM: Ordered/Entered in error Performed By: #### L 500.2500 ####[facility] [address] [place], [address] BUN/CRE Normal 10-20 [facility] Comment on above: Result Comment: Canc elled via OM: Ordered/Entered in error Performed By: #### L 500.2500 ####[facility] [address] [place], [address] Calcium Normal 7.6-11.0 [facility] Comment on above: Result Comment: Canc elled via OM: Ordered/Entered in error Performed By: #### L 500.2500 ####[facility] [address] [place], [address] CL Normal 98-108 [facility] Comment on above: Result Comment: Canc elled via OM: Ordered/Entered in error Performed By: #### L 500.2500 ####[facility] [address] [place], [address] CO2 Normal 21.0-32.0 [facility] Comment on above: Result Comment: Canc elled via OM: Ordered/Entered in error Performed By: #### L 500.2500 ####[facility] [address] [place], [address] CREAT,SERUM Normal 0.70-1.20 [facility] Comment on above: Result Comment: Canc elled via OM: Ordered/Entered in error Performed By: #### L 500.2500 ####[facility] [address] [place], [address] eGFR Normal >60 [facility] Comment on above: Result Comment: Canc elled via OM: Ordered/Entered in error Performed By: #### L 500.2500 ####[facility] [address] [place], [address] GAP Normal 5-15 [facility] Comment on above: Result Comment: Canc elled via OM: Ordered/Entered in error Performed By: #### L 500.2500 ####[facility] [address] [place], [address] GLU Normal 70-99 [facility] Comment on above: Result Comment: Canc elled via OM: Ordered/Entered in error Performed By: #### L 500.2500 ####[facility] [address] [place], [address] Potassium Normal 3.3-5.1 [facility] Comment on above: Result Comment: Canc elled via OM: Ordered/Entered in error Performed By: #### L 500.2500 ####[facility] [address] [place], [address] Basic Metabolic Profile (BMP) Normal 133-145 [facility] Comment on above: Result Comment: Canc elled via OM: Ordered/Entered in error Performed By: #### L 500.2500 ####[facility] [address] [place], [address] Basic Metabolic Profile (BMP )on 05-28-2025 BUN/CRE 30.6 RATIO High 10-20 [facility] Comment on above: Performed By: #### L 500.2500 ####[facility] [address] [place], [address] Calcium [Mass/Vol] 8.6 mg/dL Normal 7.6-11.0 [facility] Comment on above: Performed By: #### L 500.2500 ####[facility] [address] [place], [address] Chloride [Moles/Vol] 102 mmol/L Normal 98-108 [facility] Comment on above: Performed By: #### L 500.2500 ####[facility] [address] [place], [address] CO2 [Moles/Vol] 25.9 mmol/L Normal 21.0-32.0 [facility] Comment on above: Performed By: #### L 500.2500 ####[facility] [address] [place], [address] Creatinine [Mass/Vol] 0.73 mg/dL Normal 0.70-1.20 [facility] Comment on above: Performed By: #### L 500.2500 ####[facility] [address] [place], [address] ECRCL 52.76 ml/min Normal 50-250 [facility] Comment on above: Performed By: #### L 500.2500 ####[facility] [address] [place], [address] GAP 10 Normal 5-15 [facility] Comment on above: Performed By: #### L 500.2500 ####[facility] [address] [place], [address] GFR/1.73 sq M.predicted among non-blacks MDRD (S/P/Bld) [Vol rate/Area] 81 mL/min/{1.73_m2} Normal >60 [facility] Comment on above: Result Comment: mL/m in/1.73m2 CKD-EPI Creatinine Equation (2020) Performed By: #### L 500.2500 ####[facility] [address] [place], [address] Glucose [Mass/Vol] 108 mg/dL High 70-99 [facility] Comment on above: Performed By: #### L 500.2500 ####[facility] [address] [place], [address] Potassium [Moles/Vol] 3.9 mmol/L Normal 3.3-5.1 [facility] Comment on above: Result Comment: Hemo lysis present, Results??could be affected.?? Performed By: #### L 500.2500 ####[facility] [address] [place], [address] Sodium [Moles/Vol] 137 mmol/L Normal 133-145 [facility] Comment on above: Performed By: #### L 500.2500 ####[facility] [address] [place], [address] Urea nitrogen [Mass/Vol] 22 mg/dL High 4-19 [facility] Comment on above: Performed By: #### L 500.2500 ####[facility] [address] [place], [address] CBC W/Diff, Automatedon 08-0 -2024 Absolute Lymph 1.45 X10 3/uL Normal 0.83-4.51 [facility] Comment on above: Performed By: #### L 100.0100 ####[facility] [address] [place], [address] Absolute Neut 3.5 X10 3/uL Normal 2.0-7.7 [facility] Comment on above: Performed By: #### L 100.0100 ####[facility] [address] [place], [address] Basophils/100 WBC (Bld) 0.7 % Normal 0-1 [facility] Comment on above: Performed By: #### L 100.0100 ####[facility] [address] [place], [address] Eosinophils/100 WBC (Bld) 3.7 % Normal 0-5 [facility] Comment on above: Performed By: #### L 100.0100 ####[facility] [address] [place], [address] Erythrocyte distribution width (RBC) [Ratio] 15.5 % High 11.6-14.6 [facility] Comment on above: Performed By: #### L 100.0100 ####[facility] [address] [place], [address] Hematocrit (Bld) [Volume fraction] 26.8 % Low 37-47 [facility] Comment on above: Performed By: #### L 100.0100 ####[facility] [address] [place], [address] Hemoglobin (Bld) [Mass/Vol] 8.4 g/dL Low 12.0-15.0 [facility] Comment on above: Performed By: #### L 100.0100 ####[facility] [address] [place], [address] IG% 0.700 Normal 0.0-0.9 [facility] Comment on above: Result Comment: IG% - Immature Granulocytes (promyelocytes, myelocytes andmetamyelocytes) > 1% indicates that a LEFT SHIFT is Present. Performed By: #### L 100.0100 ####[facility] [address] [place], [address] Lymphocytes/100 WBC (Bld) 24.2 % Normal 19-41 [facility] Comment on above: Performed By: #### L 100.0100 ####[facility] [address] [place], [address] MCH (RBC) [Entitic mass] 30.1 pg Normal 27.0-32.0 [facility] Comment on above: Performed By: #### L 100.0100 ####[facility] [address] [place], [address] MCHC (RBC) [Mass/Vol] 31.3 g/dL Low 32-36 [facility] Comment on above: Performed By: #### L 100.0100 ####[facility] [address] [place], [address] MCV (RBC) [Entitic vol] 96.1 fL Normal 81-99 [facility] Comment on above: Performed By: #### L 100.0100 ####[facility] [address] [place], [address] Monocytes/100 WBC (Bld) 12.4 % High 0-10 [facility] Comment on above: Performed By: #### L 100.0100 ####[facility] [address] [place], [address] Neutrophils/100 WBC (Bld) 58.3 % Normal 47-70 [facility] Comment on above: Performed By: #### L 100.0100 ####[facility] [address] [place], [address] Nucleated RBC (Bld) [#/Vol] 0 10*3/uL Normal 0-5 [facility] Comment on above: Performed By: #### L 100.0100 ####[facility] [address] [place], [address] Platelet mean volume (Bld) [Entitic vol] 9.4 fL Normal 6.2-12.0 [facility] Comment on above: Performed By: #### L 100.0100 ####[facility] [address] [place], [address] Platelets (Bld) [#/Vol] 264 10*3/uL Normal 150-450 [facility] Comment on above: Performed By: #### L 100.0100 ####[facility] [address] [place], [address] RBC (Bld) [#/Vol] 2.79 10*6/uL Low 4.2-5.4 [facility] Comment on above: Performed By: #### L 100.0100 ####[facility] [address] [place], [address] RDW SD 53.9 fl High 35.1-43.9 [facility] Comment on above: Performed By: #### L 100.0100 ####[facility] [address] [place], [address] WBC (Bld) [#/Vol] 6.0 10*3/uL Normal 4.4-11.0 [facility] Comment on above: Performed By: #### L 100.0100 ####[facility] [address] [place], [address] Bilirubin Test strip Ql (U)O rdered By: Eh Huddleston on 05-25-2025 Bilirubin Ql (U) Negative Negative [facility] Ketones Test strip Ql (U)Ord ered By: Eh Huddleston on 05-25-2025 Ketones Ql (U) Negative Negative [facility] Microscopic analysis of urin e for red blood cells (RBC)Ordered By: Eh Huddleston on 05-25-2025 Microscopic analysis of urine for red blood cells (RBC) 0-5 SEEN /hpf 0-5 [facility] Mucus LM Ql (Urine sed)Order ed By: Eh Huddleston on 05-25-2025 Mucus Ql (Urine sed) 0 SEEN /hpf [facility] Nitrite Test strip Ql (U)Ord ered By: Eh Huddleston on 05-25-2025 Nitrite Ql (U) Positive High Negative [facility] Protein Test strip Ql (U)Ord ered By: Eh Huddleston on 05-25-2025 Protein Ql (U) 15 mg/dl High Negative [facility] Squamous epithelial cells de tection in urine sediment by light microscopyOrdered By: Eh Huddleston on 05-25-2025 Epithelial cells.squamous LM Ql (Urine sed) 0-5 SEEN /hpf 5-10 [facility] Urinalysis, Completeon 05-25 RBC 0-5 SEEN Normal 0-5 [facility] Comment on above: Order Comment: LORNA TER SPECIMEN Performed By: #### M 100.2200, L400.0001 ####[facility] [address] [place], [address] BACTERIA 3+ /hpf Normal None Seen [facility] Comment on above: Order Comment: LORNA TER SPECIMEN Performed By: #### M 100.2200, L400.0001 ####[facility] [address] [place], [address] EPI,SQUAMOUS 0-5 SEEN Normal 5-10 [facility] Comment on above: Order Comment: LORNA TER SPECIMEN Performed By: #### M 100.2200, L400.0001 ####[facility] [address] [place], [address] WBC 10-25 SEEN Normal 0-5 [facility] Comment on above: Order Comment: LORNA TER SPECIMEN Performed By: #### M 100.2200, L400.0001 ####[facility] [address] [place], [address] Mucus Ql (Urine sed) 0 SEEN Normal [facility] Comment on above: Order Comment: LORNA TER SPECIMEN Performed By: #### M 100.2200, L400.0001 ####[facility] [address] [place], [address] Urine clarityOrdered By: Eh Huddleston on 05-25-2025 Clarity (U) Sl. Cloudy Clear [facility] Urine color determinationOrd ered By: Eh Huddleston on 05-25-2025 Color (U) Straw Yellow [facility] Urine cultureOrdered By: Eh Huddleston on 05-25-2025 Bacteria identified Cx Nom (U) Escherichia coli Abnormal [facility] Bacteria identified Cx Nom (U) Klebsiella pneumoniae sp pneum Abnormal [facility] Bacteria identified Cx Nom (U) Pseudomonas aeruginosa Abnormal [facility] Urine glucose detectionOrder ed By: Eh Huddleston on 05-25-2025 Glucose Ql (U) Normal mg/dl Normal [facility] Urine leukocyte esterase det ection by dipstickOrdered By: Eh Huddleston on 05-25-2025 Leukocyte esterase Test strip Ql (U) 500 /ul High Negative [facility] Urine pHOrdered By: Eh Huddleston on 05-25-2025 pH (U) 7.0 [pH] 5.0 - 8.0 [facility] Urine sediment bacteria coun t by microscopy (number/high power field)Ordered By: Eh Huddleston on 05-25-2025 Bacteria LM.HPF (Urine sed) [#/Area] 3 /[HPF] None Seen [facility] Urine specific gravity measu rementOrdered By: Eh Huddleston on 05-25-2025 Specific gravity (U) [Rel density] 1.005 1.002-1.03 0 [facility] Urine urobilinogen measureme ntOrdered By: hE Huddleston on 05-25-2025 Urobilinogen Ql (U) Normal mg/dl Normal [facility] White blood cell countOrdere d By: Eh Huddleston on 05-25-2025 White blood cell count 10-25 SEEN /hpf 0-5 [facility] HH, Hemoglobin AND Hematocri ton 05-23-2025 Hematocrit (Bld) [Volume fraction] 26.1 % Low 37-47 [facility] Comment on above: Performed By: #### L 100.0600 ####[facility] [address] [place], [address] Hemoglobin (Bld) [Mass/Vol] 8.3 g/dL Low 12.0-15.0 [facility] Comment on above: Performed By: #### L 100.0600 ####[facility] [address] [place], [address] Hematocrit Auto (Bld) [Volum e fraction]Ordered By: Eh Huddleston on 05-23-2025 Hematocrit (Bld) [Volume fraction] 26.1 % Low 37-47 [facility] Hemoglobin measurementOrdere d By: Eh Huddleston on 05-23-2025 Hemoglobin (Bld) [Mass/Vol] 8.3 g/dL Low 12.0-15.0 [facility] Basic Metabolic Profile (BMP )on 05-22-2025 BUN Normal 4-19 [facility] Comment on above: Result Comment: Canc elled via OM: Ordered/Entered in error Performed By: #### L 500.2500 ####[facility] [address] [place], [address] BUN/CRE Normal 10-20 [facility] Comment on above: Result Comment: Canc elled via OM: Ordered/Entered in error Performed By: #### L 500.2500 ####[facility] [address] [place], [address] Calcium Normal 7.6-11.0 [facility] Comment on above: Result Comment: Canc elled via OM: Ordered/Entered in error Performed By: #### L 500.2500 ####[facility] [address] [place], [address] CL Normal 98-108 [facility] Comment on above: Result Comment: Canc elled via OM: Ordered/Entered in error Performed By: #### L 500.2500 ####[facility] [address] [place], [address] CO2 Normal 21.0-32.0 [facility] Comment on above: Result Comment: Canc elled via OM: Ordered/Entered in error Performed By: #### L 500.2500 ####[facility] [address] [place], [address] CREAT,SERUM Normal 0.70-1.20 [facility] Comment on above: Result Comment: Canc elled via OM: Ordered/Entered in error Performed By: #### L 500.2500 ####[facility] [address] [place], [address] eGFR Normal >60 [facility] Comment on above: Result Comment: Canc elled via OM: Ordered/Entered in error Performed By: #### L 500.2500 ####[facility] [address] [place], [address] GAP Normal 5-15 [facility] Comment on above: Result Comment: Canc elled via OM: Ordered/Entered in error Performed By: #### L 500.2500 ####[facility] [address] [place], [address] GLU Normal 70-99 [facility] Comment on above: Result Comment: Canc elled via OM: Ordered/Entered in error Performed By: #### L 500.2500 ####[facility] [address] [place], [address] Potassium Normal 3.3-5.1 [facility] Comment on above: Result Comment: Canc elled via OM: Ordered/Entered in error Performed By: #### L 500.2500 ####[facility] [address] [place], [address] Basic Metabolic Profile (BMP) Normal 133-145 [facility] Comment on above: Result Comment: Canc elled via OM: Ordered/Entered in error Performed By: #### L 500.2500 ####[facility] [address] [place], [address] Absolute lymphocyte countOrd ered By: Eh Huddleston on 05-21-2025 Lymphocytes Auto (Unsp spec) [#/Vol] 1.60 10*3/uL 0.83-4.51 [facility] Absolute neutrophil countOrd ered By: Eh Huddleston on 05-21-2025 Neutrophils (Bld) [#/Vol] 5.3 10*3/uL 2.0-7.7 [facility] Anion gap in Serum or Plasma Ordered By: Eh Huddleston on 05-21-2025 Anion gap [Moles/Vol] 8 mmol/L 5-15 [facility] Automated lymphocyte count a s percentage of total leukocytesOrdered By: Eh Huddlestno on 05-21-2025 Lymphocytes/100 WBC Auto (Unsp spec) 20.3 % - [facility] BUN/creatinine ratioOrdered By: Eh Huddleston on 05-21-2025 Urea nitrogen/Creatinine [Mass ratio] 37.6 mg/mg High 08-16 [facility] Basic Metabolic Profile (BMP )on 05-21-2025 BUN/CRE 37.6 RATIO High 08-16 [facility] Comment on above: Performed By: #### L 500.2500 ####[facility] [address] [place], [address] Calcium [Mass/Vol] 8.4 mg/dL Normal 7.6-11.0 [facility] Comment on above: Performed By: #### L 500.2500 ####[facility] [address] [place], [address] Chloride [Moles/Vol] 105 mmol/L Normal 98-108 [facility] Comment on above: Performed By: #### L 500.2500 ####[facility] [address] [place], [address] CO2 [Moles/Vol] 25.4 mmol/L Normal 21.0-32.0 [facility] Comment on above: Performed By: #### L 500.2500 ####[facility] [address] [place], [address] Creatinine [Mass/Vol] 0.64 mg/dL Low 0.70-1.20 [facility] Comment on above: Performed By: #### L 500.2500 ####[facility] [address] [place], [address] ECRCL 53.64 ml/min Normal 50-250 [facility] Comment on above: Performed By: #### L 500.2500 ####[facility] [address] [place], [address] GAP 8 Normal 5-15 [facility] Comment on above: Performed By: #### L 500.2500 ####[facility] [address] [place], [address] GFR/1.73 sq M.predicted among non-blacks MDRD (S/P/Bld) [Vol rate/Area] 86 mL/min/{1.73_m2} Normal >60 [facility] Comment on above: Result Comment: mL/m in/1.73m2 CKD-EPI Creatinine Equation (2020) Performed By: #### L 500.2500 ####[facility] [address] [place], [address] Glucose [Mass/Vol] 108 mg/dL High 70-99 [facility] Comment on above: Performed By: #### L 500.2500 ####[facility] [address] [place], [address] Potassium [Moles/Vol] 4.0 mmol/L Normal 3.3-5.1 [facility] Comment on above: Result Comment: Hemo lysis present, Results??could be affected.?? Performed By: #### L 500.2500 ####[facility] [address] [place], [address] Sodium [Moles/Vol] 138 mmol/L Normal 133-145 [facility] Comment on above: Performed By: #### L 500.2500 ####[facility] [address] [place], [address] Urea nitrogen [Mass/Vol] 24 mg/dL High 4-19 [facility] Comment on above: Performed By: #### L 500.2500 ####[facility] [address] [place], [address] Basophil percentageOrdered B y: Eh Huddleston on 05-21-2025 Basophils/100 WBC (Bld) 0.3 % 0-1 [facility] CBC W/Diff, Automatedon 04-28 Absolute Lymph 1.60 X10 3/uL Normal 0.83-4.51 [facility] Comment on above: Performed By: #### L 100.0100 ####[facility] [address] [place], [address] Absolute Neut 5.3 X10 3/uL Normal 2.0-7.7 [facility] Comment on above: Performed By: #### L 100.0100 ####[facility] [address] [place], [address] Basophils/100 WBC (Bld) 0.3 % Normal 0-1 [facility] Comment on above: Performed By: #### L 100.0100 ####[facility] [address] [place], [address] Eosinophils/100 WBC (Bld) 2.0 % Normal 0-5 [facility] Comment on above: Performed By: #### L 100.0100 ####[facility] [address] [place], [address] Erythrocyte distribution width (RBC) [Ratio] 15.2 % High 11.6-14.6 [facility] Comment on above: Performed By: #### L 100.0100 ####[facility] [address] [place], [address] Hematocrit (Bld) [Volume fraction] 25.0 % Low 37-47 [facility] Comment on above: Performed By: #### L 100.0100 ####[facility] [address] [place], [address] Hemoglobin (Bld) [Mass/Vol] 8.2 g/dL Low 12.0-15.0 [facility] Comment on above: Performed By: #### L 100.0100 ####[facility] [address] [place], [address] IG% 0.600 Normal 0.0-0.9 [facility] Comment on above: Result Comment: IG% - Immature Granulocytes (promyelocytes, myelocytes andmetamyelocytes) > 1% indicates that a LEFT SHIFT is Present. Performed By: #### L 100.0100 ####[facility] [address] [place], [address] Lymphocytes/100 WBC (Bld) 20.3 % Normal 19-41 [facility] Comment on above: Performed By: #### L 100.0100 ####[facility] [address] [place], [address] MCH (RBC) [Entitic mass] 31.1 pg Normal 27.0-32.0 [facility] Comment on above: Performed By: #### L 100.0100 ####[facility] [address] [place], [address] MCHC (RBC) [Mass/Vol] 32.8 g/dL Normal 32-36 [facility] Comment on above: Performed By: #### L 100.0100 ####[facility] [address] [place], [address] MCV (RBC) [Entitic vol] 94.7 fL Normal 81-99 [facility] Comment on above: Performed By: #### L 100.0100 ####[facility] [address] [place], [address] Monocytes/100 WBC (Bld) 10.0 % Normal 0-10 [facility] Comment on above: Performed By: #### L 100.0100 ####[facility] [address] [place], [address] Neutrophils/100 WBC (Bld) 66.8 % Normal 47-70 [facility] Comment on above: Performed By: #### L 100.0100 ####[facility] [address] [place], [address] Nucleated RBC (Bld) [#/Vol] 0 10*3/uL Normal 0-5 [facility] Comment on above: Performed By: #### L 100.0100 ####[facility] [address] [place], [address] Platelet mean volume (Bld) [Entitic vol] 9.4 fL Normal 6.2-12.0 [facility] Comment on above: Performed By: #### L 100.0100 ####[facility] [address] [place], [address] Platelets (Bld) [#/Vol] 290 10*3/uL Normal 150-450 [facility] Comment on above: Performed By: #### L 100.0100 ####[facility] [address] [place], [place], [phone]) RBC (Bld) [#/Vol] 2.64 10*6/uL Low 4.2-5.4 [facility] Comment on above: Performed By: #### L 100.0100 ####[facility] [address] [place], [place], [id number] RDW SD 52.7 fl High 35.1-43.9 [facility] Comment on above: Performed By: #### L 100.0100 ####[facility] [address] [place], [address] WBC (Bld) [#/Vol] 7.9 10*3/uL Normal 4.4-11.0 [facility] Comment on above: Performed By: #### L 100.0100 ####[facility] [address] [place], [place], [id number]([phone]) Carbon dioxide, total [Moles /volume] in Central venous bloodOrdered By: Eh Huddleston 05-21-2025 CO2 [Moles/Vol] 25.4 mmol/L 21.0-32.0 [facility] Chloride assayOrdered By: Collin Huddleston 05-21-2025 Chloride [Moles/Vol] 105 mmol/L 98-108 [facility] Eosinophil percentageOrdered By: Eh Huddleston 05-21-2025 Eosinophils/100 WBC (Bld) 2.0 % 0-5 [facility] Erythrocyte distribution wid th ratioOrdered By: Eh Huddleston 05-21-2025 Erythrocyte distribution width (RBC) [Ratio] 15.2 % High 11.6-14.6 [facility] Erythrocyte distribution wid th standard deviationOrdered By: Eh Huddleston 05-21-2025 Erythrocyte distribution width (RBC) [Ratio] 52.7 fl High 35.1-43.9 [facility] Glomerular filtration rate ( GFR) estimation/1.73 sq m using serum, plasma, or whole bOrdered By: Eh Huddleston on 05-21-2025 GFR/1.73 sq M.predicted among non-blacks MDRD (S/P/Bld) [Vol rate/Area] 86 mL/min/{1.73_m2} >60 [facility] Comment on above: mL/min/1.73m2 CKD-EP I Creatinine Equation (2020) Immature granulocytes/100 WB C Auto (Bld)Ordered By: Eh Huddleston on 05-21-2025 Immature granulocytes/100 WBC (Bld) 0.600 % 0.0-0.9 [facility] Comment on above: IG% - Immature Granu locytes (promyelocytes, myelocytes and metamyelocytes) > 1% indicates that a LEFT SHIFT is Present. MCV (mean corpuscular volume ) determinationOrdered By: Eh Huddleston on 05-21-2025 MCV (RBC) [Entitic vol] 94.7 fL 81-99 [facility] Mean corpuscular hemoglobin (MCH) determinationOrdered By: Eh Huddleston on 05-21-2025 MCH (RBC) [Entitic mass] 31.1 pg 27.0-32.0 [facility] Mean corpuscular hemoglobin concentration (MCHC) determinationOrdered By: Eh Huddleston 05-21-2025 MCHC (RBC) [Mass/Vol] 32.8 g/dL 32-36 [facility] Mean platelet volume determi nationOrdered By: Eh Huddleston on 05-21-2025 Platelet mean volume (Bld) [Entitic vol] 9.4 fL 6.2-12.0 [facility] Monocyte percentageOrdered B y: Eh Huddleston on 05-21-2025 Monocytes/100 WBC (Bld) 10.0 % 0-10 [facility] Neutrophil percentageOrdered By: Eh Huddleston on 05-21-2025 Neutrophils/100 WBC (Bld) 66.8 % 47-70 [facility] Nucleated red blood cell per centageOrdered By: Eh Huddleston on 05-21-2025 Nucleated RBC/100 WBC (Bld) [Ratio] 0 % 0-5 [facility] Platelet countOrdered By: Collin Huddleston on 05-21-2025 Platelets (Bld) [#/Vol] 290 10*3/uL 150-450 [facility] Potassium measurement (mass/ volume)Ordered By: Eh Flaquito on 05-21-2025 Potassium (Unsp spec) [Mass/Vol] 4.0 mmol/L 3.3-5.1 [facility] Comment on above: Hemolysis present, R esults could be affected. RBC Auto (Bld) [#/Vol]Ordere d By: Eh Flaquito on 05-21-2025 RBC (Bld) [#/Vol] 2.64 10*6/uL Low 4.2-5.4 [facility] Serum creatinine measurement (mass/volume)Ordered By: Eh Huddleston on 05-21-2025 Creatinine [Mass/Vol] 0.64 mg/dL Low 0.70-1.20 [facility] Serum glucose measurement (m ass/volume)Ordered By: Eh Huddleston on 05-21-2025 Glucose [Mass/Vol] 108 mg/dL High 70-99 [facility] Serum or plasma calcium susy urement (mass/volume)Ordered By: Eh Huddleston on 05-21-2025 Calcium [Mass/Vol] 8.4 mg/dL 7.6-11.0 [facility] Serum or plasma urea nitroge n measurement (mass/volume)Ordered By: Eh Huddleston on 05-21-2025 Urea nitrogen [Mass/Vol] 24 mg/dL High 4-19 [facility] Sodium levelOrdered By: Eh Flaquito on 05-21-2025 Sodium [Moles/Vol] 138 mmol/L 133-145 [facility] White blood cell (WBC) count Ordered By: Eh Huddleston on 05-21-2025 WBC (Bld) [#/Vol] 7.9 10*3/uL 4.4-11.0 [facility] HH, Hemoglobin AND Hematocri ton 05-19-2025 Hematocrit (Bld) [Volume fraction] 25.4 % Low 37-47 [facility] Comment on above: Performed By: #### L 100.0600 ####[facility] [address] [place], [address] Hemoglobin (Bld) [Mass/Vol] 8.1 g/dL Low 12.0-15.0 [facility] Comment on above: Performed By: #### L 100.0600 ####[facility] [address] [place], [address] HH, Hemoglobin AND Hematocri ton 05-18-2025 Hematocrit (Bld) [Volume fraction] 26.3 % Low 37-47 [facility] Comment on above: Performed By: #### L 100.0600 ####[facility] [address] [place], [address] Hemoglobin (Bld) [Mass/Vol] 8.4 g/dL Low 12.0-15.0 [facility] Comment on above: Performed By: #### L 100.0600 ####[facility] [address] [place], [address] Stool Occult Blood iFOBon STOB Negative Normal [facility] Comment on above: Performed By: #### M 100.7900 ####[facility] [address] [place], [address] Stool gastrointestinal hemog lobin detection by immunologic methodOrdered By: Eh Huddleston on 05-18-2025 Lower GI hemoglobin IA Ql (Stl) [facility] Culture, Blood (WB)on 2024 CUB No growth in 5 days. Normal [facility] Comment on above: Performed By: #### M 200.1000 ####[facility] [address] [place], [address] HH, Hemoglobin AND Hematocri ton 05-16-2025 Hematocrit (Bld) [Volume fraction] 26.2 % Low 37-47 [facility] Comment on above: Performed By: #### L 100.0600 ####[facility] [address] [place], [address] Hemoglobin (Bld) [Mass/Vol] 8.5 g/dL Low 12.0-15.0 [facility] Comment on above: Performed By: #### L 100.0600 ####[facility] [address] [place], [address] Basic Metabolic Profile (BMP )on 05-15-2025 BUN/CRE 37.4 RATIO High 10-20 [facility] Comment on above: Performed By: #### L 500.2500, L100.0100 ####[facility] [address] [place], [address] Calcium [Mass/Vol] 8.3 mg/dL Normal 7.6-11.0 [facility] Comment on above: Performed By: #### L 500.2500, L100.0100 ####[facility] [address] [place], [address] Chloride [Moles/Vol] 105 mmol/L Normal 98-108 [facility] Comment on above: Performed By: #### L 500.2500, L100.0100 ####[facility] [address] [place], [address] CO2 [Moles/Vol] 22.8 mmol/L Normal 21.0-32.0 [facility] Comment on above: Performed By: #### L 500.2500, L100.0100 ####[facility] [address] [place], [address] Creatinine [Mass/Vol] 0.69 mg/dL Low 0.70-1.20 [facility] Comment on above: Performed By: #### L 500.2500, L100.0100 ####[facility] [address] [place], [address] ECRCL 53.49 ml/min Normal 50-250 [facility] Comment on above: Performed By: #### L 500.2500, L100.0100 ####[facility] [address] [place], [address] GAP 8 Normal 5-15 [facility] Comment on above: Performed By: #### L 500.2500, L100.0100 ####[facility] [address] [place], [address] GFR/1.73 sq M.predicted among non-blacks MDRD (S/P/Bld) [Vol rate/Area] 84 mL/min/{1.73_m2} Normal >60 [facility] Comment on above: Result Comment: mL/m in/1.73m2 CKD-EPI Creatinine Equation (2020) Performed By: #### L 500.2500, L100.0100 ####[facility] [address] [place], [address] Glucose [Mass/Vol] 116 mg/dL High 70-99 [facility] Comment on above: Performed By: #### L 500.2500, L100.0100 ####[facility] [address] [place], [address] Potassium [Moles/Vol] 4.1 mmol/L Normal 3.3-5.1 [facility] Comment on above: Performed By: #### L 500.2500, L100.0100 ####[facility] [address] [place], [address] Sodium [Moles/Vol] 136 mmol/L Normal 133-145 [facility] Comment on above: Performed By: #### L 500.2500, L100.0100 ####[facility] [address] [place], [address] Urea nitrogen [Mass/Vol] 26 mg/dL High 4-19 [facility] Comment on above: Performed By: #### L 500.2500, L100.0100 ####[facility] [address] [place], [address] CBC W/Diff, Automatedon 07- Absolute Lymph 1.31 X10 3/uL Normal 0.83-4.51 [facility] Comment on above: Performed By: #### L 500.2500, L100.0100 ####[facility] [address] [place], [address] Absolute Neut 4.4 X10 3/uL Normal 2.0-7.7 [facility] Comment on above: Performed By: #### L 500.2500, L100.0100 ####[facility] [address] [place], [address] Basophils/100 WBC (Bld) 0.3 % Normal 0-1 [facility] Comment on above: Performed By: #### L 500.2500, L100.0100 ####[facility] [address] [place], [address] Eosinophils/100 WBC (Bld) 2.8 % Normal 0-5 [facility] Comment on above: Performed By: #### L 500.2500, L100.0100 ####[facility] [address] [place], [address] Erythrocyte distribution width (RBC) [Ratio] 14.6 % Normal 11.6-14.6 [facility] Comment on above: Performed By: #### L 500.2500, L100.0100 ####[facility] [address] [place], [address] Hematocrit (Bld) [Volume fraction] 25.4 % Low 37-47 [facility] Comment on above: Performed By: #### L 500.2500, L100.0100 ####[facility] [address] [place], [address] Hemoglobin (Bld) [Mass/Vol] 8.4 g/dL Low 12.0-15.0 [facility] Comment on above: Performed By: #### L 500.2500, L100.0100 ####[facility] [address] [place], [address] IG% 1.900 High 0.0-0.9 [facility] Comment on above: Result Comment: IG% - Immature Granulocytes (promyelocytes, myelocytes andmetamyelocytes) > 1% indicates that a LEFT SHIFT is Present. Performed By: #### L 500.2500, L100.0100 ####[facility] [address] [place], [address] Lymphocytes/100 WBC (Bld) 19.4 % Normal 19-41 [facility] Comment on above: Performed By: #### L 500.2500, L100.0100 ####[facility] [address] [place], [address] MCH (RBC) [Entitic mass] 30.0 pg Normal 27.0-32.0 [facility] Comment on above: Performed By: #### L 500.2500, L100.0100 ####[facility] [address] [place], [address] MCHC (RBC) [Mass/Vol] 33.1 g/dL Normal 32-36 [facility] Comment on above: Performed By: #### L 500.2500, L100.0100 ####[facility] [address] [place], [address] MCV (RBC) [Entitic vol] 90.7 fL Normal 81-99 [facility] Comment on above: Performed By: #### L 500.2500, L100.0100 ####[facility] [address] [place], [address] Monocytes/100 WBC (Bld) 10.4 % High 0-10 [facility] Comment on above: Performed By: #### L 500.2500, L100.0100 ####[facility] [address] [place], [address] Neutrophils/100 WBC (Bld) 65.2 % Normal 47-70 [facility] Comment on above: Performed By: #### L 500.2500, L100.0100 ####[facility] [address] [place], [address] Nucleated RBC (Bld) [#/Vol] 0 10*3/uL Normal 0-5 [facility] Comment on above: Performed By: #### L 500.2500, L100.0100 ####[facility] [address] [place], [address] Platelet mean volume (Bld) [Entitic vol] 9.5 fL Normal 6.2-12.0 [facility] Comment on above: Performed By: #### L 500.2500, L100.0100 ####[facility] [address] [place], [address] Platelets (Bld) [#/Vol] 182 10*3/uL Normal 150-450 [facility] Comment on above: Performed By: #### L 500.2500, L100.0100 ####[facility] [address] [place], [address] RBC (Bld) [#/Vol] 2.80 10*6/uL Low 4.2-5.4 [facility] Comment on above: Performed By: #### L 500.2500, L100.0100 ####[facility] [address] [place], [address] RDW SD 48.5 fl High 35.1-43.9 [facility] Comment on above: Performed By: #### L 500.2500, L100.0100 ####[facility] [address] [place], [address] WBC (Bld) [#/Vol] 6.8 10*3/uL Normal 4.4-11.0 [facility] Comment on above: Performed By: #### L 500.2500, L100.0100 ####[facility] [address] [place], [place], [id number] Stool Occult Blood iFOBon STOB Normal [facility] Comment on above: Performed By: #### M 100.7900 ####[facility] [address] [place], [address] Stool gastrointestinal hemog lobin detection by immunologic methodOrdered By: Eh Huddleston on 05-15-2025 Lower GI hemoglobin IA Ql (Stl) [facility] Absolute lymphocyte countOrd ered By: Manny Murdock on 05-14-2025 Lymphocytes Auto (Unsp spec) [#/Vol] 1.36 10*3/uL 0.83-4.51 [facility] Absolute neutrophil countOrd ered By: Manny Murdock on 05-14-2025 Neutrophils (Bld) [#/Vol] 5.1 10*3/uL 2.0-7.7 [facility] Automated blood erythrocyte countOrdered By: Manny Murdock on 05-14-2025 RBC (Bld) [#/Vol] 3.11 10*6/uL Low 4.2-5.4 [facility] Comment on above: Performed By: #### L 100.0100 ####[facility] [address] [place], [place], [id number] Automated blood hematocrit ( percentage)Ordered By: Manny Murdock on 05-14-2025 Hematocrit (Bld) [Volume fraction] 28.0 % Low 37-47 [facility] Comment on above: Performed By: #### L 100.0100 ####[facility] [address] [place], [place], [id number] Automated lymphocyte count a s percentage of total leukocytesOrdered By: Manny Murdock on 05-14-2025 Lymphocytes/100 WBC Auto (Unsp spec) 18.1 % Low 19-41 [facility] Basophil percentageOrdered B y: Manny Murdock on 05-14-2025 Basophils/100 WBC (Bld) 0.3 % Normal 0-1 [facility] Comment on above: Performed By: #### L 100.0100 ####[facility] [address] [place], [address] CBC W/Diff, Automatedon 04-27 Absolute Lymph 1.36 X10 3/uL Normal 0.83-4.51 [facility] Comment on above: Performed By: #### L 100.0100 ####[facility] [address] [place], [address] Absolute Neut 5.1 X10 3/uL Normal 2.0-7.7 [facility] Comment on above: Performed By: #### L 100.0100 ####[facility] [address] [place], [address] IG% 0.900 Normal 0.0-0.9 [facility] Comment on above: Result Comment: IG% - Immature Granulocytes (promyelocytes, myelocytes andmetamyelocytes) > 1% indicates that a LEFT SHIFT is Present. Performed By: #### L 100.0100 ####[facility] [address] [place], [address] Lymphocytes/100 WBC (Bld) 18.1 % Low 19-41 [facility] Comment on above: Performed By: #### L 100.0100 ####[facility] [address] [place], [address] Nucleated RBC (Bld) [#/Vol] 0 10*3/uL Normal 0-5 [facility] Comment on above: Performed By: #### L 100.0100 ####[facility] [address] [place], [address] RDW SD 47.7 fl High 35.1-43.9 [facility] Comment on above: Performed By: #### L 100.0100 ####[facility] [address] [place], [address] Eosinophil percentageOrdered By: Manny Murdock on 05-14-2025 Eosinophils/100 WBC (Bld) 2.9 % Normal 0-5 [facility] Comment on above: Performed By: #### L 100.0100 ####[facility] [address] [place], [place], [phone]) Erythrocyte distribution wid th ratioOrdered By: Manny Murdock on 05-14-2025 Erythrocyte distribution width (RBC) [Ratio] 14.6 % Normal 11.6-14.6 [facility] Comment on above: Performed By: #### L 100.0100 ####[facility] [address] [place], [address] Erythrocyte distribution wid th standard deviationOrdered By: Manny Murdock on 05-14-2025 Erythrocyte distribution width (RBC) [Ratio] 47.7 fl High 35.1-43.9 [facility] Hemoglobin measurementOrdere d By: Manny Murdock on 05-14-2025 Hemoglobin (Bld) [Mass/Vol] 9.5 g/dL Low 12.0-15.0 [facility] Comment on above: Performed By: #### L 100.0100 ####[facility] [address] [place], [address] Immature granulocytes/100 WB C Auto (Bld)Ordered By: Manny Murdock on 05-14-2025 Immature granulocytes/100 WBC (Bld) 0.900 % 0.0-0.9 [facility] Comment on above: IG% - Immature Granu locytes (promyelocytes, myelocytes and metamyelocytes) > 1% indicates that a LEFT SHIFT is Present. MCV (mean corpuscular volume ) determinationOrdered By: Manny Murdock on 05-14-2025 MCV (RBC) [Entitic vol] 90.0 fL Normal 81-99 [facility] Comment on above: Performed By: #### L 100.0100 ####[facility] [address] [place], [place], [id number] Mean corpuscular hemoglobin (MCH) determinationOrdered By: Manny Murdock on 05-14-2025 MCH (RBC) [Entitic mass] 30.5 pg Normal 27.0-32.0 [facility] Comment on above: Performed By: #### L 100.0100 ####[facility] [address] [place], [address] Mean corpuscular hemoglobin concentration (MCHC) determinationOrdered By: Manny Murdock on 05-14-2025 MCHC (RBC) [Mass/Vol] 33.9 g/dL Normal 32-36 [facility] Comment on above: Performed By: #### L 100.0100 ####[facility] [address] [place], [address] Mean platelet volume determi nationOrdered By: Manny Murdock on 05-14-2025 Platelet mean volume (Bld) [Entitic vol] 9.7 fL Normal 6.2-12.0 [facility] Comment on above: Performed By: #### L 100.0100 ####[facility] [address] [place], [address] Monocyte percentageOrdered B y: Manny Murdock on 05-14-2025 Monocytes/100 WBC (Bld) 10.3 % High 0-10 [facility] Comment on above: Performed By: #### L 100.0100 ####[facility] [address] [place], [address] Neutrophil percentageOrdered By: Manny Murdock on 05-14-2025 Neutrophils/100 WBC (Bld) 67.5 % Normal 47-70 [facility] Comment on above: Performed By: #### L 100.0100 ####[facility] [address] [place], [address] Nucleated red blood cell per centageOrdered By: Manny Murdock on 05-14-2025 Nucleated RBC/100 WBC (Bld) [Ratio] 0 % 0-5 [facility] Platelet countOrdered By: Jessica Murdock on 07-18-2025 Platelets (Bld) [#/Vol] 186 10*3/uL Normal 150-450 [facility] Comment on above: Performed By: #### L 100.0100 ####[facility] [address] [place], [address] White blood cell (WBC) count Ordered By: Manny Murdock on 05-14-2025 WBC (Bld) [#/Vol] 7.5 10*3/uL Normal 4.4-11.0 [facility] Comment on above: Performed By: #### L 100.0100 ####[facility] [address] [place], [address] Bedside Glucoseon 05-13-2025 FINGERSTICK GLU 141 mg/dL High 74-106 [facility] Comment on above: Result Comment: CHRISTIAN GEMENT OF PATIENT CARE PER NURSING PROTOCOL Performed By: #### L 501.080 ####[facility] [address] [place], [address] FINGERSTICK GLU 131 mg/dL High 74-106 [facility] Comment on above: Result Comment: CHRISTIAN GEMENT OF PATIENT CARE PER NURSING PROTOCOL Performed By: #### L 501.080 ####[facility] [address] [place], [address] FINGERSTICK GLU 119 mg/dL High 74-106 [facility] Comment on above: Result Comment: CHRISTIAN GEMENT OF PATIENT CARE PER NURSING PROTOCOL Performed By: #### L 501.080 ####[facility] [address] [place], [address] FINGERSTICK GLU 124 mg/dL High -106 [facility] Comment on above: Result Comment: CHRISTIAN GEMENT OF PATIENT CARE PER NURSING PROTOCOL Performed By: #### L 501.080 ####[facility] [address] [place], [address] CBC W/Diff, Automatedon 07- Absolute Lymph 1.16 X10 3/uL Normal 0.83-4.51 [facility] Comment on above: Performed By: #### L 100.0100 ####[facility] [address] [place], [address] Absolute Neut 5.6 X10 3/uL Normal 2.0-7.7 [facility] Comment on above: Performed By: #### L 100.0100 ####[facility] [address] [place], [address] Basophils/100 WBC (Bld) 0.3 % Normal 0-1 [facility] Comment on above: Performed By: #### L 100.0100 ####[facility] [address] [place], [address] Eosinophils/100 WBC (Bld) 2.3 % Normal 0-5 [facility] Comment on above: Performed By: #### L 100.0100 ####[facility] [address] [place], [address] Erythrocyte distribution width (RBC) [Ratio] 14.8 % High 11.6-14.6 [facility] Comment on above: Performed By: #### L 100.0100 ####[facility] [address] [place], [address] Hematocrit (Bld) [Volume fraction] 26.3 % Low 37-47 [facility] Comment on above: Performed By: #### L 100.0100 ####[facility] [address] [place], [address] Hemoglobin (Bld) [Mass/Vol] 8.8 g/dL Low 12.0-15.0 [facility] Comment on above: Performed By: #### L 100.0100 ####[facility] [address] [place], [address] IG% 0.600 Normal 0.0-0.9 [facility] Comment on above: Result Comment: IG% - Immature Granulocytes (promyelocytes, myelocytes andmetamyelocytes) > 1% indicates that a LEFT SHIFT is Present. Performed By: #### L 100.0100 ####[facility] [address] [place], [address] Lymphocytes/100 WBC (Bld) 14.8 % Low 19-41 [facility] Comment on above: Performed By: #### L 100.0100 ####[facility] [address] [place], [address] MCH (RBC) [Entitic mass] 30.2 pg Normal 27.0-32.0 [facility] Comment on above: Performed By: #### L 100.0100 ####[facility] [address] [place], [address] MCHC (RBC) [Mass/Vol] 33.5 g/dL Normal 32-36 [facility] Comment on above: Performed By: #### L 100.0100 ####[facility] [address] [place], [address] MCV (RBC) [Entitic vol] 90.4 fL Normal 81-99 [facility] Comment on above: Performed By: #### L 100.0100 ####[facility] [address] [place], [address] Monocytes/100 WBC (Bld) 11.2 % High 0-10 [facility] Comment on above: Performed By: #### L 100.0100 ####[facility] [address] [place], [address] Neutrophils/100 WBC (Bld) 70.8 % High 47-70 [facility] Comment on above: Performed By: #### L 100.0100 ####[facility] [address] [place], [address] Nucleated RBC (Bld) [#/Vol] 0 10*3/uL Normal 0-5 [facility] Comment on above: Performed By: #### L 100.0100 ####[facility] [address] [place], [address] Platelet mean volume (Bld) [Entitic vol] 9.6 fL Normal 6.2-12.0 [facility] Comment on above: Performed By: #### L 100.0100 ####[facility] [address] [place], [address] Platelets (Bld) [#/Vol] 149 10*3/uL Low 150-450 [facility] Comment on above: Performed By: #### L 100.0100 ####[facility] [address] [place], [address] RBC (Bld) [#/Vol] 2.91 10*6/uL Low 4.2-5.4 [facility] Comment on above: Performed By: #### L 100.0100 ####[facility] [address] [place], [address] RDW SD 48.9 fl High 35.1-43.9 [facility] Comment on above: Performed By: #### L 100.0100 ####[facility] [address] [place], [address] WBC (Bld) [#/Vol] 7.9 10*3/uL Normal 4.4-11.0 [facility] Comment on above: Performed By: #### L 100.0100 ####[facility] [address] [place], [address] Calculated very low density lipoprotein (VLDL) cholesterol measurementOrdered By: Manny Murdock on 05-13-2025 Calculated very low density lipoprotein (VLDL) cholesterol measurement 27 mg/dL 5-40 [facility] Electrocardiogram reportOrde red By: Azul Pratt on 05-13-[address] [facility] Cardiovascular Services [address] [place] [address] 12 Lead EKG 05/08/25 0505 MR#: [id number] Acct: [id number] Name: GOGO WARE #:[id number] : 1940 85 From: Azul sauceda MD Attending Dr: Dr. Manny Murdock MD Status: ADM IN Ordering Dr: Jim Jones MD Date: 04/27 12/22 Location: [facility] Sex: F C Admitted: 05/07/25 Test Reason : Pre-Op Blood Pressure : */* mmHG Vent. Rate : 77 BPM Atrial Rate : 77 BPM P-R Int : 200 ms QRS Dur : 94 ms QT Int : 414 ms P-R-T Axes : 80 42 86 degrees QTcB Int : 468 ms Normal sinus rhythm Normal ECG Confirmed by Azul Pratt ([id number]), editor city [place] AUGUST ([id number]) on 05/13/2025 8:35:20 AM Referred By: Karen Confirmed By: Azul Pratt 05/13/25 0835 Date _ Azul Pratt MD CC: Dr. Jim Jones MD; Dr. Manny Murdock MD; Dr. Eh Huddleston MD ~ Signed [facility] Other Phone: Glucose measurement at [facility] deOrdered By: Manny Murdock on 05-13-2025 Glucose [Mass/Vol] 141 mg/dL High 74-106 [facility] Comment on above: MANAGEMENT OF PATIEN T CARE PER NURSING PROTOCOL Hemoglobin A1con 05-13-2025 HbA1c (Bld) [Mass fraction] 5.5 % Normal <=5.6 [facility] Comment on above: Result Comment: Norm al < 5.7 % Prediabetic 5.7 - 6.4 % Diabetic >or= 6.5 % Please note range changes. Performed By: #### L 012.1007 ####[facility] [address] [place], [address] Hemoglobin A1c percentageOrd ered By: Manny Murdock on 05-13-2025 HbA1c (Bld) [Mass fraction] 5.5 % <5.7 [facility] Comment on above: Normal < 5.7 % Predi abetic 5.7 - 6.4 % Diabetic >or= 6.5 % Please note range changes. LDL calc ser/plasOrdered By: Manny Murdock on 05-13-2025 Cholesterol in LDL [Mass/Vol] 61 mg/dL [facility] Comment on above: Bkydqntefu=033-717 m g/dL & Higher Xpeq=141 mg/dL or greater Lipid Profileon 05-13-2025 CHOL:HDL 3.58 Normal [facility] Comment on above: Order Comment: Comme nts: NPO at [place] prior to lipid panel Performed By: #### L 501.9520, L500.4100 ####[facility] [address] [place], [place], [id number] Cholesterol [Mass/Vol] 122 mg/dL Normal <=200 [facility] Comment on above: Order Comment: Comme nts: NPO at [place] prior to lipid panel Result Comment: Chol esterol level, Desirable <200 mg/dLBorderline high cholesterol 200-239 mg/dLHigh cholesterol >=240 mg/dLRecommendations of the NCEP Adult Treatment Panel for thefollowing risk-cutoff thresholds for the [place] Americanpopulation. Performed By: #### L 501.9520, L500.4100 ####[facility] [address] [place], [place], [id number] Cholesterol in HDL [Mass/Vol] 34 mg/dL Low [facility] Comment on above: Order Comment: Comme nts: NPO at [place] prior to lipid panel Result Comment: Elaine onal Cholesterol Education Program (NCEP) guidelines:<40 mg/dL: Low HDL-cholesterol (major risk factor for CHD)>= 60 mg/dL: High HDL-cholesterol (negative risk factor forCHD)HDL-cholesterol is affected by a number of factors, e.g.smoking, exercise, hormones, sex and age. Performed By: #### L 501.9520, L500.4100 ####[facility] [address] [place], [address] Cholesterol in LDL [Mass/Vol] 61 mg/dL Normal [facility] Comment on above: Order Comment: Comme nts: NPO at [place] prior to lipid panel Result Comment: Bord oflfyx=440-874 mg/dL Higher Cwqw=886 mg/dL or greater Performed By: #### L 501.9520, L500.4100 ####[facility] [address] [place], [address] Cholesterol in VLDL [Mass/Vol] 27 mg/dL Normal 5-40 [facility] Comment on above: Order Comment: Comme nts: NPO at [place] prior to lipid panel Performed By: #### L 501.9520, L500.4100 ####[facility] [address] [place], [address] Triglyceride [Mass/Vol] 133 mg/dL Normal [facility] Comment on above: Order Comment: Comme nts: NPO at [place] prior to lipid panel Result Comment: The drugs N-Acetylcysteine and Metamizole may falselydepress this assay.Normal range: <150 mg/dLBorderline High: 150-199 mg/dLHigh: 200-499 mg/dLVery High: >500 mg/dL Performed By: #### L 501.9520, L500.4100 ####[facility] [address] [place], [address] Screening total cholesterol/ high density lipoprotein (HDL) cholesterol ratioOrdered By: Manny Murdock on 05-13-2025 Cholesterol.total/Cho lesterol in HDL [Mass ratio] 3.58 {ratio} [facility] Serum or plasma cholesterol in HDL measurement (mass/volume)Ordered By: Manny Murdock on 05-13-2025 Cholesterol in HDL [Mass/Vol] 34 mg/dL Low >40 [facility] Comment on above: National Cholesterol Education Program (NCEP) guidelines:<40 mg/dL: Low HDL-cholesterol (major risk factor for CHD)>= 60 mg/dL: High HDL-cholesterol (negative risk factor for CHD)HDL-cholesterol is affected by a number of factors, e.g. smoking, exercise, hormones, sex and age. Serum or plasma cholesterol measurement (mass/volume)Ordered By: Manny Murdock on 05-13-2025 Cholesterol [Mass/Vol] 122 mg/dL <201 [facility] Comment on above: Cholesterol level, D esirable <200 mg/dLBorderline high cholesterol 200-239 mg/dLHigh cholesterol >=240 mg/dLRecommendations of the NCEP Adult Treatment Panel for the following risk-cutoff thresholds for the [place] Faro[place] population. TSH DL <= 0.005 mIU/L QnOrde red By: Manny Murdock on 05-13-2025 TSH Qn 2.480 uIU/mL 0.300-4.20 0 [facility] Thyroid Stim Hormone (TSH)on 05-13-2025 TSH 2.480 uIU/mL Normal 0.300-4.20 0 [facility] Comment on above: Order Comment: Comme nts: NPO at [place] prior to lipid panel Performed By: #### L 501.9520, L500.4100 ####[facility] [address] [place], [place], [id number] Triglycerides measurementOrd ered By: Manny Murdock on 05-13-2025 Triglyceride [Mass/Vol] 133 mg/dL <199 [facility] Comment on above: The drugs N-Acetylcy steine and Metamizole may falsely depress this assay. Normal range: <150 mg/dLBorderline High: 150-199 mg/dLHigh: 200-499 mg/dLVery High: >500 mg/dL Anion gap in Serum or Plasma Ordered By: Manny Murdock on 05-12-2025 Anion gap [Moles/Vol] 8 mmol/L 5-15 [facility] BUN/creatinine ratioOrdered By: Manny Murdock on 05-12-2025 Urea nitrogen/Creatinine [Mass ratio] 34.0 mg/mg High 08-16 [facility] Basic Metabolic Profile (BMP )on 05-12-2025 BUN/CRE 34.0 RATIO High 08-16 [facility] Comment on above: Performed By: #### L 100.0100, L500.2500 ####[facility] [address] [place], [address] Calcium [Mass/Vol] 7.8 mg/dL Normal 7.6-11.0 [facility] Comment on above: Performed By: #### L 100.0100, L500.2500 ####[facility] [address] [place], [address] Chloride [Moles/Vol] 109 mmol/L High 98-108 [facility] Comment on above: Performed By: #### L 100.0100, L500.2500 ####[facility] [address] [place], [address] CO2 [Moles/Vol] 19.5 mmol/L Low 21.0-32.0 [facility] Comment on above: Performed By: #### L 100.0100, L500.2500 ####[facility] [address] [place], [address] Creatinine [Mass/Vol] 0.68 mg/dL Low 0.70-1.20 [facility] Comment on above: Performed By: #### L 100.0100, L500.2500 ####[facility] [address] [place], [address] ECRCL 51.35 ml/min Normal 50-250 [facility] Comment on above: Performed By: #### L 100.0100, L500.2500 ####[facility] [address] [place], [address] GAP 8 Normal 5-15 [facility] Comment on above: Performed By: #### L 100.0100, L500.2500 ####[facility] [address] [place], [address] GFR/1.73 sq M.predicted among non-blacks MDRD (S/P/Bld) [Vol rate/Area] 85 mL/min/{1.73_m2} Normal >60 [facility] Comment on above: Result Comment: mL/m in/1.73m2 CKD-EPI Creatinine Equation (2020) Performed By: #### L 100.0100, L500.2500 ####[facility] [address] [place], [address] Glucose [Mass/Vol] 168 mg/dL High 70-99 [facility] Comment on above: Performed By: #### L 100.0100, L500.2500 ####[facility] [address] [place], [address] Potassium [Moles/Vol] 4.0 mmol/L Normal 3.3-5.1 [facility] Comment on above: Performed By: #### L 100.0100, L500.2500 ####[facility] [address] [place], [address] Sodium [Moles/Vol] 137 mmol/L Normal 133-145 [facility] Comment on above: Performed By: #### L 100.0100, L500.2500 ####[facility] [address] [place], [address] Urea nitrogen [Mass/Vol] 23 mg/dL High 4-19 [facility] Comment on above: Performed By: #### L 100.0100, L500.2500 ####[facility] [address] [place], [address] CBC W/Diff, Automatedon 04-27 Absolute Lymph 0.78 X10 3/uL Low 0.83-4.51 [facility] Comment on above: Performed By: #### L 100.0100, L500.2500 ####[facility] [address] [place], [address] Absolute Neut 5.5 X10 3/uL Normal 2.0-7.7 [facility] Comment on above: Performed By: #### L 100.0100, L500.2500 ####[facility] [address] [place], [address] Basophils/100 WBC (Bld) 0.1 % Normal 0-1 [facility] Comment on above: Performed By: #### L 100.0100, L500.2500 ####[facility] [address] [place], [address] Eosinophils/100 WBC (Bld) 1.2 % Normal 0-5 [facility] Comment on above: Performed By: #### L 100.0100, L500.2500 ####[facility] [address] [place], [address] Erythrocyte distribution width (RBC) [Ratio] 14.8 % High 11.6-14.6 [facility] Comment on above: Performed By: #### L 100.0100, L500.2500 ####[facility] [address] [place], [address] Hematocrit (Bld) [Volume fraction] 24.6 % Low 37-47 [facility] Comment on above: Performed By: #### L 100.0100, L500.2500 ####[facility] [address] [place], [address] Hemoglobin (Bld) [Mass/Vol] 8.3 g/dL Low 12.0-15.0 [facility] Comment on above: Performed By: #### L 100.0100, L500.2500 ####[facility] [address] [place], [address] IG% 0.700 Normal 0.0-0.9 [facility] Comment on above: Result Comment: IG% - Immature Granulocytes (promyelocytes, myelocytes andmetamyelocytes) > 1% indicates that a LEFT SHIFT is Present. Performed By: #### L 100.0100, L500.2500 ####[facility] [address] [place], [address] Lymphocytes/100 WBC (Bld) 10.7 % Low 19-41 [facility] Comment on above: Performed By: #### L 100.0100, L500.2500 ####[facility] [address] [place], [address] MCH (RBC) [Entitic mass] 30.3 pg Normal 27.0-32.0 [facility] Comment on above: Performed By: #### L 100.0100, L500.2500 ####[facility] [address] [place], [address] MCHC (RBC) [Mass/Vol] 33.7 g/dL Normal 32-36 [facility] Comment on above: Performed By: #### L 100.0100, L500.2500 ####[facility] [address] [place], [address] MCV (RBC) [Entitic vol] 89.8 fL Normal 81-99 [facility] Comment on above: Performed By: #### L 100.0100, L500.2500 ####[facility] [address] [place], [address] Monocytes/100 WBC (Bld) 10.9 % High 0-10 [facility] Comment on above: Performed By: #### L 100.0100, L500.2500 ####[facility] [address] [place], [address] Neutrophils/100 WBC (Bld) 76.4 % High 47-70 [facility] Comment on above: Performed By: #### L 100.0100, L500.2500 ####[facility] [address] [place], [address] Nucleated RBC (Bld) [#/Vol] 0 10*3/uL Normal 0-5 [facility] Comment on above: Performed By: #### L 100.0100, L500.2500 ####[facility] [address] [place], [address] Platelet mean volume (Bld) [Entitic vol] 10.1 fL Normal 6.2-12.0 [facility] Comment on above: Performed By: #### L 100.0100, L500.2500 ####[facility] [address] [place], [address] Platelets (Bld) [#/Vol] 129 10*3/uL Low 150-450 [facility] Comment on above: Performed By: #### L 100.0100, L500.2500 ####[facility] [address] [place], [address] RBC (Bld) [#/Vol] 2.74 10*6/uL Low 4.2-5.4 [facility] Comment on above: Performed By: #### L 100.0100, L500.2500 ####[facility] [address] [place], [address] RDW SD 48.1 fl High 35.1-43.9 [facility] Comment on above: Performed By: #### L 100.0100, L500.2500 ####[facility] [address] [place], [address] WBC (Bld) [#/Vol] 7.3 10*3/uL Normal 4.4-11.0 [facility] Comment on above: Performed By: #### L 100.0100, L500.2500 ####[facility] [address] [place], [address] Carbon dioxide, total [Moles /volume] in Central venous bloodOrdered By: Manny Murdock on 05-12-2025 CO2 [Moles/Vol] 19.5 mmol/L Low 21.0-32.0 [facility] Chloride assayOrdered By: Jessica Murdock on 05-12-2025 Chloride [Moles/Vol] 109 mmol/L High 98-108 [facility] Echocardiogram study reportO rdered By: Tracy Kaur on 05-12-2025 Study report [facility] Cardi[facility] [place] [address] Echo Complete W/ Contrast 05/11/259 MR#: [id number] Acct: [id number] Name: GOGO WARE p #:[id number] : 1940 85 From: Tracy Kaur MD [...] ~ Date Dictated: 05/11/252218 Date Transcribed: 05/12/251225 Feed Crusher: Signed [facility] Work Phone: Electrocardiogram reportOrde red By: Azul Pratt on 05-12-[address] [facility] Cardiovascular Services [address] [place] [address] 12 Lead EKG 05/10/25 1638 MR#: [id number] Acct: [id number] Name: GOGO WARE p #:[id number] : 1940 85 From: Azul sauceda MD Attending Dr: Dr. Manny Murdock MD Status: ADM IN Ordering Dr: Sourav Casiano DO Date: 05/10/25 Location: [facility] Sex: F C Admitted: 05/07/25 Test [...] in Lateral leads Confirmed by Azul Pratt ([id number]), editor [place] ([id number]) on 05/12/2025 11:36:28 AM Referred By: Confirmed By: Azul Pratt 05/12/25 1136 Date _ Azul Pratt MD CC: Dr. Sourav Casiano DO; Dr. Manny Murdock MD; Dr. Eh Huddleston MD ~ Signed [facility] Other Phone: Glomerular filtration rate ( GFR) estimation/1.73 sq m using serum, plasma, or whole bOrdered By: Manny Murdock on 05-12-2025 GFR/1.73 sq M.predicted among non-blacks MDRD (S/P/Bld) [Vol rate/Area] 85 mL/min/{1.73_m2} >60 [facility] Comment on above: mL/min/1.73m2 CKD-EP I Creatinine Equation (2020) MR/CON.PCM.NEon 05-12-2025 MR/CON.PCM.NE Normal [facility] Potassium measurement (mass/ volume)Ordered By: Manny Murdock on 05-12-2025 Potassium (Unsp spec) [Mass/Vol] 4.0 mmol/L 3.3-5.1 [facility] Serum creatinine measurement (mass/volume)Ordered By: Manny Murdock on 05-12-2025 Creatinine [Mass/Vol] 0.68 mg/dL Low 0.70-1.20 [facility] Serum glucose measurement (m ass/volume)Ordered By: Manny Murdock on 05-12-2025 Glucose [Mass/Vol] 168 mg/dL High 70-99 [facility] Serum or plasma calcium susy urement (mass/volume)Ordered By: Manny Murdock on 05-12-2025 Calcium [Mass/Vol] 7.8 mg/dL 7.6-11.0 [facility] Serum or plasma urea nitroge n measurement (mass/volume)Ordered By: Manny Murdock on 05-12-2025 Urea nitrogen [Mass/Vol] 23 mg/dL High 4-19 [facility] Sodium levelOrdered By: Tracie Murdock on 05-12-2025 Sodium [Moles/Vol] 137 mmol/L 133-145 [facility] BRCon 05-11-2025 RC Normal [facility] Comment on above: Result Comment: [id number] ABP RC TRANSFUSED 05/11/25 [id number] ABN RC TRANSFUSED 05/11/25 1721 Performed By: #### [facility] ####[facility] [address] [place], [address] Bilirubin Test strip Ql (U)O rdered By: Sourav Casiano on 05-11-2025 Bilirubin Ql (U) Negative Negative [facility] Brain without Contraston Brain without Contrast Normal [facility] CBC W/Diff, Automatedon - Absolute Lymph 0.81 X10 3/uL Low 0.83-4.51 [facility] Comment on above: Performed By: #### L 100.0100 ####[facility] [address] [place], [address] Absolute Neut 8.4 X10 3/uL High 2.0-7.7 [facility] Comment on above: Performed By: #### L 100.0100 ####[facility] [address] [place], [address] Basophils/100 WBC (Bld) 0.1 % Normal 0-1 [facility] Comment on above: Performed By: #### L 100.0100 ####[facility] [address] [place], [address] Eosinophils/100 WBC (Bld) 0.5 % Normal 0-5 [facility] Comment on above: Performed By: #### L 100.0100 ####[facility] [address] [place], [address] Erythrocyte distribution width (RBC) [Ratio] 13.9 % Normal 11.6-14.6 [facility] Comment on above: Performed By: #### L 100.0100 ####[facility] [address] [place], [address] Hematocrit (Bld) [Volume fraction] 18.5 % Low 37-47 [facility] Comment on above: Performed By: #### L 100.0100 ####[facility] [address] [place], [address] Hemoglobin (Bld) [Mass/Vol] 6.3 g/dL Low 12.0-15.0 [facility] Comment on above: Performed By: #### L 100.0100 ####[facility] [address] [place], [address] IG% 0.300 Normal 0.0-0.9 [facility] Comment on above: Result Comment: IG% - Immature Granulocytes (promyelocytes, myelocytes andmetamyelocytes) > 1% indicates that a LEFT SHIFT is Present. Performed By: #### L 100.0100 ####[facility] [address] [place], [address] Lymphocytes/100 WBC (Bld) 7.8 % Low 19-41 [facility] Comment on above: Performed By: #### L 100.0100 ####[facility] [address] [place], [address] MCH (RBC) [Entitic mass] 31.2 pg Normal 27.0-32.0 [facility] Comment on above: Performed By: #### L 100.0100 ####[facility] [address] [place], [address] MCHC (RBC) [Mass/Vol] 34.1 g/dL Normal 32-36 [facility] Comment on above: Performed By: #### L 100.0100 ####[facility] [address] [place], [address] MCV (RBC) [Entitic vol] 91.6 fL Normal 81-99 [facility] Comment on above: Performed By: #### L 100.0100 ####[facility] [address] [place], [address] Monocytes/100 WBC (Bld) 10.4 % High 0-10 [facility] Comment on above: Performed By: #### L 100.0100 ####[facility] [address] [place], [address] Neutrophils/100 WBC (Bld) 80.9 % High 47-70 [facility] Comment on above: Performed By: #### L 100.0100 ####[facility] [address] [place], [address] Nucleated RBC (Bld) [#/Vol] 0 10*3/uL Normal 0-5 [facility] Comment on above: Performed By: #### L 100.0100 ####[facility] [address] [place], [address] Platelet mean volume (Bld) [Entitic vol] 10.7 fL Normal 6.2-12.0 [facility] Comment on above: Performed By: #### L 100.0100 ####[facility] [address] [place], [address] Platelets (Bld) [#/Vol] 114 10*3/uL Low 150-450 [facility] Comment on above: Performed By: #### L 100.0100 ####[facility] [address] [place], [address] RBC (Bld) [#/Vol] 2.02 10*6/uL Low 4.2-5.4 [facility] Comment on above: Performed By: #### L 100.0100 ####[facility] [address] [place], [address] RDW SD 47.1 fl High 35.1-43.9 [facility] Comment on above: Performed By: #### L 100.0100 ####[facility] [address] [place], [place], [address] WBC (Bld) [#/Vol] 10.3 10*3/uL Normal 4.4-11.0 [facility] Comment on above: Performed By: #### L 100.0100 ####[facility] [address] [place], [address] Absolute Neut Normal 2.0-7.7 [facility] Comment on above: Result Comment: This specimen has been REJECTED due to Laboratory criteria:Clotted.SAMEERA has been notified of need of recollection.05/11/25638 [place] Performed By: #### L 100.0100 ####[facility] [address] [place], [address] HCT Normal 37-47 [facility] Comment on above: Result Comment: This specimen has been REJECTED due to Laboratory criteria:Clotted.SAMEERA has been notified of need of recollection.05/11/25638 [place] Performed By: #### L 100.0100 ####[facility] [address] [place], [address] HGB Normal 12.0-15.0 [facility] Comment on above: Result Comment: This specimen has been REJECTED due to Laboratory criteria:Clotted.SAMEERA has been notified of need of recollection.05/11/25638 [place] Performed By: #### L 100.0100 ####[facility] [address] [place], [address] MCH Normal 27.0-32.0 [facility] Comment on above: Result Comment: This specimen has been REJECTED due to Laboratory criteria:Clotted.SAMEERA has been notified of need of recollection.05/11/25638 [place] Performed By: #### L 100.0100 ####[facility] [address] [place], [address] MCHC Normal 32-36 [facility] Comment on above: Result Comment: This specimen has been REJECTED due to Laboratory criteria:Clotted.SAMEERA has been notified of need of recollection.05/11/25638 [place] Performed By: #### L 100.0100 ####[facility] [address] [place], [address] MCV Normal 81-99 [facility] Comment on above: Result Comment: This specimen has been REJECTED due to Laboratory criteria:Clotted.SAMEERA has been notified of need of recollection.05/11/25638 [place] Performed By: #### L 100.0100 ####[facility] [address] [place], [address] NEUT% Normal 47-70 [facility] Comment on above: Result Comment: This specimen has been REJECTED due to Laboratory criteria:Clotted.SAMEERA has been notified of need of recollection.05/11/25638 [place] Performed By: #### L 100.0100 ####[facility] [address] [place], [address] PLT Normal 150-450 [facility] Comment on above: Result Comment: This specimen has been REJECTED due to Laboratory criteria:Clotted.SAMEERA has been notified of need of recollection.05/11/25638 [place] Performed By: #### L 100.0100 ####[facility] [address] [place], [address] RBC Normal 4.2-5.4 [facility] Comment on above: Result Comment: This specimen has been REJECTED due to Laboratory criteria:Clotted.SAMEERA has been notified of need of recollection.05/11/25638 [place] Performed By: #### L 100.0100 ####[facility] [address] [place], [address] RDW CV Normal 11.6-14.6 [facility] Comment on above: Result Comment: This specimen has been REJECTED due to Laboratory criteria:Clotted.SAMEERA has been notified of need of recollection.05/11/25638 [place] Performed By: #### L 100.0100 ####[facility] [address] [place], [address] RDW SD Normal 35.1-43.9 [facility] Comment on above: Result Comment: This specimen has been REJECTED due to Laboratory criteria:Clotted.SAMEERA has been notified of need of recollection.05/11/25638 [place] Performed By: #### L 100.0100 ####[facility] [address] [place], [address] WBC Normal 4.4-11.0 [facility] Comment on above: Result Comment: This specimen has been REJECTED due to Laboratory criteria:Clotted.SAMEERA has been notified of need of recollection.05/11/25638 [place] Performed By: #### L 100.0100 ####[facility] [address] [place], [address] Echo Complete W/ Contraston 05-11-2025 Echo Complete W/ Contrast Normal [facility] Ketones Test strip Ql (U)Ord ered By: Sourav Casiano on 05-11-2025 Ketones Ql (U) Negative Negative [facility] Magnetic resonance imaging r eportOrdered By: Alessandro Hewitt on 05-11-[address] [facility] Imaging Services [address] [place] [address] Brain without Contrast MR#: [id number] Acct: [id number] Name: GOGO WARE Rep #: [id number] : [id number] F 85 From: Rocael Hewitt MD PCP: Dr. Eh Huddleston MD Status: ADM I N Study:Brain without Contrast Date of Exam: 05/11/25 Exam# [id number] Ordering Dr: Sourav Celestin DO PROCEDURE: BRAIN WITHOUT CONTRAST 05/11/2025 REASON FOR EXAM: LETHARGY, RULE OUT CVA TECHNIQUE: Multiplanar and multisequential MRI of the brain was performed without contrast. COMPARISON: CT head/angiography 05/10/2025. 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 Reading Location: [id number] CC: Dr. Sourav Casiano DO; Dr. Eh Huddleston MD ~ Feed Crusher: Signed [facility] Microscopic analysis of urin e for red blood cells (RBC)Ordered By: Sourav Casiano on 05-11-2025 Microscopic analysis of urine for red blood cells (RBC) 0-5 SEEN /hpf 0-5 [facility] Mucus LM Ql (Urine sed)Order ed By: Sourav Casiano on 05-11-2025 Mucus Ql (Urine sed) 0 SEEN /hpf [facility] Nitrite Test strip Ql (U)Ord ered By: Sourav Casiano on 05-11-2025 Nitrite Ql (U) Negative Negative [facility] Protein Test strip Ql (U)Ord ered By: Sourav Casiano on 05-11-2025 Protein Ql (U) 15 mg/dl High Negative [facility] Squamous epithelial cells de tection in urine sediment by light microscopyOrdered By: Sourav Casiano on 05-11-2025 Epithelial cells.squamous LM Ql (Urine sed) 0-5 SEEN /hpf 5-10 [facility] Type AND Screenon 05-11-2025 ABO and Rh group Nom (Bld) Blood group AB Rh(D) positive Normal [facility] Comment on above: Order Comment: CMV N EG? NNumber of units to transfuse: 2Reason for Ordering Blood: AcuteAre the blood/blood products to be transfused? YIs the patient having/had surgery? YYWhen ReadyNYR Performed By: #### B , [facility] ####[facility] [address] [facility] [id number] Urinalysis, Completeon 05-11 BACTERIA 2+ /hpf Normal None Seen [facility] Comment on above: Order Comment: LORNA TER SPECIMEN Performed By: #### L 400.0001 ####[facility] [address] [place], [place], [id number] EPI,SQUAMOUS 0-5 SEEN Normal 5-10 [facility] Comment on above: Order Comment: LORNA TER SPECIMEN Performed By: #### L 400.0001 ####[facility] [address] [place], [address] RBC 0-5 SEEN Normal 0-5 [facility] Comment on above: Order Comment: LORNA TER SPECIMEN Performed By: #### L 400.0001 ####[facility] [address] [place], [address] WBC 0-5 SEEN Normal 0-5 [facility] Comment on above: Order Comment: LORNA TER SPECIMEN Performed By: #### L 400.0001 ####[facility] [address] [place], [address] Mucus Ql (Urine sed) 0 SEEN Normal [facility] Comment on above: Order Comment: LORNA TER SPECIMEN Performed By: #### L 400.0001 ####[facility] [address] [place], [address] Urine clarityOrdered By: Dona Casiano on 05-11-2025 Clarity (U) Clear Clear [facility] Urine color determinationOrd ered By: Sourav Casiano on 05-11-2025 Color (U) Yellow Yellow [facility] Urine glucose detectionOrder ed By: Sourav Casiano on 05-11-2025 Glucose Ql (U) Normal mg/dl Normal [facility] Urine leukocyte esterase det ection by dipstickOrdered By: Sourav Casiano on 05-11-2025 Leukocyte esterase Test strip Ql (U) Negative Negative [facility] Urine pHOrdered By: Sourav Kim on 05-11-2025 pH (U) 5.0 [pH] 5.0 - 8.0 [facility] Urine sediment bacteria coun t by microscopy (number/high power field)Ordered By: Sourav Casiano on 05-11-2025 Bacteria LM.HPF (Urine sed) [#/Area] 2 /[HPF] None Seen [facility] Urine specific gravity measu rementOrdered By: Sourav Casiano on 05-11-2025 Specific gravity (U) [Rel density] 1.020 1.002-1.03 0 [facility] Urine urobilinogen measureme ntOrdered By: Sourav Casiano on 05-11-2025 Urobilinogen Ql (U) Normal mg/dl Normal [facility] White blood cell countOrdere d By: Sourav Casaino on 05-11-2025 White blood cell count 0-5 SEEN /hpf 0-5 [facility] 12 Lead EKGon 05-10-2025 12 Lead EKG Normal [facility] Bedside Glucoseon 05-10-2025 FINGERSTICK GLU 158 mg/dL High 74-106 [facility] Comment on above: Result Comment: CHRISTIAN VÁSQUEZ OF PATIENT CARE PER NURSING PROTOCOL Performed By: #### L 501.080 ####[facility] [address] [place], [address] Blood cultureOrdered By: Dona Casiano on 05-10-2025 Bacteria identified Cx Nom (Bld) No growth in 5 days. [facility] Blood manual differential co mment interpretation (narrative result)Ordered By: Sourav Casiano on 05-10-2025 Manual differential comment Antonino (Bld) [Interp] SCANNED [facility] CBC W/Diff, Automatedon 04-27 PLT EST SLT DEC Normal ADEQ [facility] Comment on above: Performed By: #### L 100.0100 ####[facility] [address] [place], [address] SMEAR COMMENT SCANNED Normal [facility] Comment on above: Performed By: #### L 100.0100 ####[facility] [address] [place], [address] HH, Hemoglobin AND Hematocri ton 05-10-2025 Hematocrit (Bld) [Volume fraction] 23.4 % Low 37-47 [facility] Comment on above: Performed By: #### L 100.0600 ####[facility] [address] [place], [address] Hemoglobin (Bld) [Mass/Vol] 8.0 g/dL Low 12.0-15.0 [facility] Comment on above: Performed By: #### L 100.0600 ####[facility] [address] [place], [address] L499.0042on 05-10-2025 Trop T High Sen 36 ng/L High <=14 [facility] Comment on above: Performed By: #### L 499.0042 ####[facility] [address] [place], [address] L499.0043on 05-10-2025 Trop T High Sen 34 ng/L High <=14 [facility] Comment on above: Order Comment: PEARL 2 HR AN HORU LATE Performed By: #### L 499.0043 ####[facility] [address] [place], [address] L501.4021on 05-10-2025 Trop T High Sen 36 ng/L High <=14 [facility] Comment on above: Performed By: #### L 501.4021 ####[facility] [address] [place], [address] Platelet estimateOrdered By: Sourav Casiano on 05-10-2025 Platelets LM Ql (Bld) SLT DEC ADEQ [facility] STROKE Brain/Head without Co nton 05-10-2025 STROKE Brain/Head without Cont Normal [facility] STROKE CTA Head AND Neck W/C onon 05-10-2025 STROKE CTA Head AND Neck W/Con Normal [facility] Troponin T.cardiac [Mass/vol ume] in Serum or Plasma by High sensitivity methodOrdered By: Sourav Casiano on 05-10-2025 Troponin T.cardiac High sensitivity method [Mass/Vol] 34 ng/L High <14 [facility] Troponin T.cardiac High sensitivity method [Mass/Vol] 36 ng/L High <14 [facility] Troponin T.cardiac High sensitivity method [Mass/Vol] 36 ng/L High <14 [facility] CBC-Complete Blood Cnt No Di ffon 05-09-2025 Erythrocyte distribution width (RBC) [Ratio] 13.7 % Normal 11.6-14.6 [facility] Comment on above: Order Comment: Comme nts: To be done in PACU Performed By: #### L 100.0500 ####[facility] [address] [place], [address] Hematocrit (Bld) [Volume fraction] 27.9 % Low 37-47 [facility] Comment on above: Order Comment: Comme nts: To be done in PACU Performed By: #### L 100.0500 ####[facility] [address] [place], [address] Hemoglobin (Bld) [Mass/Vol] 9.2 g/dL Low 12.0-15.0 [facility] Comment on above: Order Comment: Comme nts: To be done in PACU Performed By: #### L 100.0500 ####[facility] [address] [place], [address] MCH (RBC) [Entitic mass] 30.5 pg Normal 27.0-32.0 [facility] Comment on above: Order Comment: Comme nts: To be done in PACU Performed By: #### L 100.0500 ####[facility] [address] [place], [address] MCHC (RBC) [Mass/Vol] 33.0 g/dL Normal 32-36 [facility] Comment on above: Order Comment: Comme nts: To be done in PACU Performed By: #### L 100.0500 ####[facility] [address] [place], [address] MCV (RBC) [Entitic vol] 92.4 fL Normal 81-99 [facility] Comment on above: Order Comment: Comme nts: To be done in PACU Performed By: #### L 100.0500 ####[facility] [address] [place], [address] Platelet mean volume (Bld) [Entitic vol] 11.1 fL Normal 6.2-12.0 [facility] Comment on above: Order Comment: Comme nts: To be done in PACU Performed By: #### L 100.0500 ####[facility] [address] [place], [address] Platelets (Bld) [#/Vol] 116 10*3/uL Low 150-450 [facility] Comment on above: Order Comment: Comme nts: To be done in PACU Performed By: #### L 100.0500 ####[facility] [address] [place], [address] RBC (Bld) [#/Vol] 3.02 10*6/uL Low 4.2-5.4 [facility] Comment on above: Order Comment: Comme nts: To be done in PACU Performed By: #### L 100.0500 ####[facility] [address] [place], [address] RDW SD 46.4 fl High 35.1-43.9 [facility] Comment on above: Order Comment: Comme nts: To be done in PACU Performed By: #### L 100.0500 ####[facility] [address] [place], [address] WBC (Bld) [#/Vol] 9.0 10*3/uL Normal 4.4-11.0 [facility] Comment on above: Order Comment: Comme nts: To be done in PACU Performed By: #### L 100.0500 ####[facility] [address] [place], [address] Femur Min 2 Viewson 05-09-20 25 Femur Min 2 Views Normal [facility] HH, Hemoglobin AND Hematocri ton 05-09-2025 Hematocrit (Bld) [Volume fraction] 25.3 % Low 37-47 [facility] Comment on above: Performed By: #### L 100.0600 ####[facility] [address] [place], [address] Hemoglobin (Bld) [Mass/Vol] 8.5 g/dL Low 12.0-15.0 [facility] Comment on above: Performed By: #### L 100.0600 ####[facility] [address] [place], [address] MR/POSTOP.ANEon 05-09-2025 MR/POSTOP.ANE Normal [facility] MR/OZSUPILE6cg 05-09-2025 MR/POSTOPAN2 Normal [facility] Operative Reporton Operative Report Normal [facility] 12 Lead EKGon 05-08-2025 12 Lead EKG Normal [facility] Basic Metabolic Profile (BMP )on 05-08-2025 BUN/CRE 35.2 RATIO High 10-20 [facility] Comment on above: Performed By: #### L 300.3900, L500.2500 ####[facility] [address] [place], [address] Calcium [Mass/Vol] 9.0 mg/dL Normal 7.6-11.0 [facility] Comment on above: Performed By: #### L 300.3900, L500.2500 ####[facility] [address] [place], [address] Chloride [Moles/Vol] 105 mmol/L Normal 98-108 [facility] Comment on above: Performed By: #### L 300.3900, L500.2500 ####[facility] [address] [place], [address] CO2 [Moles/Vol] 21.1 mmol/L Normal 21.0-32.0 [facility] Comment on above: Performed By: #### L 300.3900, L500.2500 ####[facility] [address] [place], [address] Creatinine [Mass/Vol] 1.09 mg/dL Normal 0.70-1.20 [facility] Comment on above: Performed By: #### L 300.3900, L500.2500 ####[facility] [address] [place], [address] ECRCL 37.62 ml/min Low 50-250 [facility] Comment on above: Performed By: #### L 300.3900, L500.2500 ####[facility] [address] [place], [address] GAP 12 Normal 5-15 [facility] Comment on above: Performed By: #### L 300.3900, L500.2500 ####[facility] [address] [place], [address] GFR/1.73 sq M.predicted among non-blacks MDRD (S/P/Bld) [Vol rate/Area] 49 mL/min/{1.73_m2} Low >60 [facility] Comment on above: Result Comment: mL/m in/1.73m2 CKD-EPI Creatinine Equation (2020) Performed By: #### L 300.3900, L500.2500 ####[facility] [address] [place], [address] Glucose [Mass/Vol] 153 mg/dL High 70-99 [facility] Comment on above: Performed By: #### L 300.3900, L500.2500 ####[facility] [address] [place], [address] Potassium [Moles/Vol] 4.0 mmol/L Normal 3.3-5.1 [facility] Comment on above: Performed By: #### L 300.3900, L500.2500 ####[facility] [address] [place], [address] Sodium [Moles/Vol] 138 mmol/L Normal 133-145 [facility] Comment on above: Performed By: #### L 300.3900, L500.2500 ####[facility] [address] [place], [address] Urea nitrogen [Mass/Vol] 38 mg/dL High 4-19 [facility] Comment on above: Performed By: #### L 300.3900, L500.2500 ####[facility] [address] [place], [address] CBC W/Diff, Automatedon 07-10 29-2024 Absolute Lymph 1.35 X10 3/uL Normal 0.83-4.51 [facility] Comment on above: Performed By: #### L 100.0100 ####[facility] [address] [place], [address] Absolute Neut 6.5 X10 3/uL Normal 2.0-7.7 [facility] Comment on above: Performed By: #### L 100.0100 ####[facility] [address] [place], [address] Basophils/100 WBC (Bld) 0.2 % Normal 0-1 [facility] Comment on above: Performed By: #### L 100.0100 ####[facility] [address] [place], [address] Eosinophils/100 WBC (Bld) 0.2 % Normal 0-5 [facility] Comment on above: Performed By: #### L 100.0100 ####[facility] [address] [place], [address] Erythrocyte distribution width (RBC) [Ratio] 13.4 % Normal 11.6-14.6 [facility] Comment on above: Performed By: #### L 100.0100 ####[facility] [address] [place], [address] Hematocrit (Bld) [Volume fraction] 28.0 % Low 37-47 [facility] Comment on above: Performed By: #### L 100.0100 ####[facility] [address] [place], [address] Hemoglobin (Bld) [Mass/Vol] 9.5 g/dL Low 12.0-15.0 [facility] Comment on above: Performed By: #### L 100.0100 ####[facility] [address] [place], [address] IG% 0.100 Normal 0.0-0.9 [facility] Comment on above: Result Comment: IG% - Immature Granulocytes (promyelocytes, myelocytes andmetamyelocytes) > 1% indicates that a LEFT SHIFT is Present. Performed By: #### L 100.0100 ####[facility] [address] [place], [address] Lymphocytes/100 WBC (Bld) 15.4 % Low 19-41 [facility] Comment on above: Performed By: #### L 100.0100 ####[facility] [address] [place], [address] MCH (RBC) [Entitic mass] 31.1 pg Normal 27.0-32.0 [facility] Comment on above: Performed By: #### L 100.0100 ####[facility] [address] [place], [address] MCHC (RBC) [Mass/Vol] 33.9 g/dL Normal 32-36 [facility] Comment on above: Performed By: #### L 100.0100 ####[facility] [address] [place], [address] MCV (RBC) [Entitic vol] 91.8 fL Normal 81-99 [facility] Comment on above: Performed By: #### L 100.0100 ####[facility] [address] [place], [address] Monocytes/100 WBC (Bld) 10.2 % High 0-10 [facility] Comment on above: Performed By: #### L 100.0100 ####[facility] [address] [place], [address] Neutrophils/100 WBC (Bld) 73.9 % High 47-70 [facility] Comment on above: Performed By: #### L 100.0100 ####[facility] [address] [place], [address] Nucleated RBC (Bld) [#/Vol] 0 10*3/uL Normal 0-5 [facility] Comment on above: Performed By: #### L 100.0100 ####[facility] [address] [place], [address] Platelet mean volume (Bld) [Entitic vol] 10.7 fL Normal 6.2-12.0 [facility] Comment on above: Performed By: #### L 100.0100 ####[facility] [address] [place], [address] Platelets (Bld) [#/Vol] 152 10*3/uL Normal 150-450 [facility] Comment on above: Performed By: #### L 100.0100 ####[facility] [address] [place], [address] RBC (Bld) [#/Vol] 3.05 10*6/uL Low 4.2-5.4 [facility] Comment on above: Performed By: #### L 100.0100 ####[facility] [address] [place], [address] RDW SD 45.3 fl High 35.1-43.9 [facility] Comment on above: Performed By: #### L 100.0100 ####[facility] [address] [place], [address] WBC (Bld) [#/Vol] 8.8 10*3/uL Normal 4.4-11.0 [facility] Comment on above: Performed By: #### L 100.0100 ####[facility] [address] [place], [address] International normalized rat io (INR) calculationOrdered By: Jim Jones on 05-08-2025 INR Coag (Bld) [Relative time] 1.2 {INR} [facility] Prothrombin Time w/INRon INR Coag (PPP) [Relative time] 1.2 {INR} Normal [facility] Comment on above: Performed By: #### L 300.3900, L500.2500 ####[facility] [address] [place], [address] PT Coag (PPP) [Time] 15.5 s High 11.7-14.9 [facility] Comment on above: Performed By: #### L 300.3900, L500.2500 ####[facility] [address] [place], [address] Prothrombin timeOrdered By: Jim Jones on 05-08-2025 PT Coag (PPP) [Time] 15.5 s High 11.7-14.9 [facility] Absolute lymphocyte countOrd ered By: José Manuel Guzman on 05-07-2025 Lymphocytes Auto (Unsp spec) [#/Vol] 1.48 10*3/uL 0.83-4.51 [facility] Absolute neutrophil countOrd ered By: José Manuel Guzman on 05-07-2025 Neutrophils (Bld) [#/Vol] 8.8 10*3/uL High 2.0-7.7 [facility] Anion gap in Serum or Plasma Ordered By: José Manuel Guzman on 05-07-2025 Anion gap [Moles/Vol] 10 mmol/L 5-15 [facility] Automated lymphocyte count a s percentage of total leukocytesOrdered By: José Manuel Guzman on 05-07-2025 Lymphocytes/100 WBC Auto (Unsp spec) 13.4 % Low 19-41 [facility] BRCon 05-07-2025 RC Normal [facility] Comment on above: Result Comment: [id number] ABP RC NOT [id number] ABP RC PRSMD TRFSD 05/09/25 0836 Performed By: #### B RC ####[facility] [address] [place], [address] BUN/creatinine ratioOrdered By: José Manuel Guzman on 05-07-2025 Urea nitrogen/Creatinine [Mass ratio] 24.8 mg/mg High 10-20 [facility] Basic Metabolic Profile (BMP )on 05-07-2025 BUN/CRE 24.8 RATIO High [facility] Comment on above: Performed By: #### L 500.2500, L100.0100 ####[facility] [address] [place], [address] Calcium [Mass/Vol] 9.2 mg/dL Normal 7.6-11.0 [facility] Comment on above: Performed By: #### L 500.2500, L100.0100 ####[facility] [address] [place], [address] Chloride [Moles/Vol] 103 mmol/L Normal 98-108 [facility] Comment on above: Performed By: #### L 500.2500, L100.0100 ####[facility] [address] [place], [address] CO2 [Moles/Vol] 24.3 mmol/L Normal 21.0-32.0 [facility] Comment on above: Performed By: #### L 500.2500, L100.0100 ####[facility] [address] [place], [address] Creatinine [Mass/Vol] 0.92 mg/dL Normal 0.70-1.20 [facility] Comment on above: Performed By: #### L 500.2500, L100.0100 ####[facility] [address] [place], [address] GAP 10 Normal 5-15 [facility] Comment on above: Performed By: #### L 500.2500, L100.0100 ####[facility] [address] [place], [address] GFR/1.73 sq M.predicted among non-blacks MDRD (S/P/Bld) [Vol rate/Area] 61 mL/min/{1.73_m2} Normal >60 [facility] Comment on above: Result Comment: mL/m in/1.73m2 CKD-EPI Creatinine Equation (2020) Performed By: #### L 500.2500, L100.0100 ####[facility] [address] [place], [address] Glucose [Mass/Vol] 143 mg/dL High 70-99 [facility] Comment on above: Performed By: #### L 500.2500, L100.0100 ####[facility] [address] [place], [address] Potassium [Moles/Vol] 4.0 mmol/L Normal 3.3-5.1 [facility] Comment on above: Result Comment: Hemo lysis present, Results??could be affected.?? Performed By: #### L 500.2500, L100.0100 ####[facility] [address] [place], [address] Sodium [Moles/Vol] 137 mmol/L Normal 133-145 [facility] Comment on above: Performed By: #### L 500.2500, L100.0100 ####[facility] [address] [place], [address] Urea nitrogen [Mass/Vol] 23 mg/dL High 4-19 [facility] Comment on above: Performed By: #### L 500.2500, L100.0100 ####[facility] [address] [place], [address] Basophil percentageOrdered B y: José Manuel Guzman on 05-07-2025 Basophils/100 WBC (Bld) 0.4 % 0-1 [facility] CBC W/Diff, Automatedon 04-27 Absolute Lymph 1.48 X10 3/uL Normal 0.83-4.51 [facility] Comment on above: Performed By: #### L 500.2500, L100.0100 ####[facility] [address] [place], [address] Absolute Neut 8.8 X10 3/uL High 2.0-7.7 [facility] Comment on above: Performed By: #### L 500.2500, L100.0100 ####[facility] [address] [place], [address] Basophils/100 WBC (Bld) 0.4 % Normal 0-1 [facility] Comment on above: Performed By: #### L 500.2500, L100.0100 ####[facility] [address] [place], [address] Eosinophils/100 WBC (Bld) 1.4 % Normal 0-5 [facility] Comment on above: Performed By: #### L 500.2500, L100.0100 ####[facility] [address] [place], [address] Erythrocyte distribution width (RBC) [Ratio] 13.0 % Normal 11.6-14.6 [facility] Comment on above: Performed By: #### L 500.2500, L100.0100 ####[facility] [address] [place], [address] Hematocrit (Bld) [Volume fraction] 36.8 % Low 37-47 [facility] Comment on above: Performed By: #### L 500.2500, L100.0100 ####[facility] [address] [place], [address] Hemoglobin (Bld) [Mass/Vol] 12.3 g/dL Normal 12.0-15.0 [facility] Comment on above: Performed By: #### L 500.2500, L100.0100 ####[facility] [address] [place], [address] IG% 0.400 Normal 0.0-0.9 [facility] Comment on above: Result Comment: IG% - Immature Granulocytes (promyelocytes, myelocytes andmetamyelocytes) > 1% indicates that a LEFT SHIFT is Present. Performed By: #### L 500.2500, L100.0100 ####[facility] [address] [place], [address] Lymphocytes/100 WBC (Bld) 13.4 % Low 19-41 [facility] Comment on above: Performed By: #### L 500.2500, L100.0100 ####[facility] [address] [place], [address] MCH (RBC) [Entitic mass] 30.7 pg Normal 27.0-32.0 [facility] Comment on above: Performed By: #### L 500.2500, L100.0100 ####[facility] [address] [place], [address] MCHC (RBC) [Mass/Vol] 33.4 g/dL Normal 32-36 [facility] Comment on above: Performed By: #### L 500.2500, L100.0100 ####[facility] [address] [place], [address] MCV (RBC) [Entitic vol] 91.8 fL Normal 81-99 [facility] Comment on above: Performed By: #### L 500.2500, L100.0100 ####[facility] [address] [place], [address] Monocytes/100 WBC (Bld) 4.8 % Normal 0-10 [facility] Comment on above: Performed By: #### L 500.2500, L100.0100 ####[facility] [address] [place], [address] Neutrophils/100 WBC (Bld) 79.6 % High 47-70 [facility] Comment on above: Performed By: #### L 500.2500, L100.0100 ####[facility] [address] [place], [address] Nucleated RBC (Bld) [#/Vol] 0 10*3/uL Normal 0-5 [facility] Comment on above: Performed By: #### L 500.2500, L100.0100 ####[facility] [address] [place], [address] Platelet mean volume (Bld) [Entitic vol] 10.2 fL Normal 6.2-12.0 [facility] Comment on above: Performed By: #### L 500.2500, L100.0100 ####[facility] [address] [place], [address] Platelets (Bld) [#/Vol] 144 10*3/uL Low 150-450 [facility] Comment on above: Performed By: #### L 500.2500, L100.0100 ####[facility] [address] [place], [address] RBC (Bld) [#/Vol] 4.01 10*6/uL Low 4.2-5.4 [facility] Comment on above: Performed By: #### L 500.2500, L100.0100 ####[facility] [address] [place], [address] RDW SD 43.8 fl Normal 35.1-43.9 [facility] Comment on above: Performed By: #### L 500.2500, L100.0100 ####[facility] [address] [place], [address] WBC (Bld) [#/Vol] 11.0 10*3/uL Normal 4.4-11.0 [facility] Comment on above: Performed By: #### L 500.2500, L100.0100 ####[facility] [address] [place], [place], [address] Carbon dioxide, total [Moles /volume] in Central venous bloodOrdered By: José Manuel Guzman on 05-07-2025 CO2 [Moles/Vol] 24.3 mmol/L 21.0-32.0 [facility] Chloride assayOrdered By: Ruddy Guzman on 05-07-2025 Chloride [Moles/Vol] 103 mmol/L 98-108 [facility] Consultation - Orthopedicson 05-07-2025 Consultation - Orthopedics Normal [facility] Emergency Department Summary on 05-07-2025 Emergency Department Summary Normal [facility] Eosinophil percentageOrdered By: José Manuel Guzman on 05-07-2025 Eosinophils/100 WBC (Bld) 1.4 % 0-5 [facility] Erythrocyte distribution wid th ratioOrdered By: José Manuel Guzman on 05-07-2025 Erythrocyte distribution width (RBC) [Ratio] 13.0 % 11.6-14.6 [facility] Erythrocyte distribution wid th standard deviationOrdered By: José Manuel Morejon on 05-07-2025 Erythrocyte distribution width (RBC) [Ratio] 43.8 fl 35.1-43.9 [facility] Femur Min 2 Viewson 05-07-20 25 Femur Min 2 Views Normal [facility] Glomerular filtration rate ( GFR) estimation/1.73 sq m using serum, plasma, or whole bOrdered By: José Manuel Guzman on 05-07-2025 GFR/1.73 sq M.predicted among non-blacks MDRD (S/P/Bld) [Vol rate/Area] 61 mL/min/{1.73_m2} >60 [facility] Comment on above: mL/min/1.73m2 CKD-EP I Creatinine Equation (2020) H AND P Exam - Hospitaliston 05-07-2025 H&P Exam - Hospitalist Normal [facility] Hematocrit Auto (Bld) [Volum e fraction]Ordered By: José Manuel Guzman on 05-07-2025 Hematocrit (Bld) [Volume fraction] 36.8 % Low 37-47 [facility] Hemoglobin measurementOrdere d By: José Manuel Guzman on 05-07-2025 Hemoglobin (Bld) [Mass/Vol] 12.3 g/dL 12.0-15.0 [facility] Immature granulocytes/100 WB C Auto (Bld)Ordered By: José Manuel Guzman on 05-07-2025 Immature granulocytes/100 WBC (Bld) 0.400 % 0.0-0.9 [facility] Comment on above: IG% - Immature Granu locytes (promyelocytes, myelocytes and metamyelocytes) > 1% indicates that a LEFT SHIFT is Present. MCV (mean corpuscular volume ) determinationOrdered By: José Manuel Guzman on 05-07-2025 MCV (RBC) [Entitic vol] 91.8 fL 81-99 [facility] Mean corpuscular hemoglobin (MCH) determinationOrdered By: José Manuel Guzman on 05-07-2025 MCH (RBC) [Entitic mass] 30.7 pg 27.0-32.0 [facility] Mean corpuscular hemoglobin concentration (MCHC) determinationOrdered By: José Manuel Guzman on 05-07-2025 MCHC (RBC) [Mass/Vol] 33.4 g/dL 32-36 [facility] Mean platelet volume determi nationOrdered By: José Manuel Guzman on 05-07-2025 Platelet mean volume (Bld) [Entitic vol] 10.2 fL 6.2-12.0 [facility] Monocyte percentageOrdered B y: José Manuel Guzman on 05-07-2025 Monocytes/100 WBC (Bld) 4.8 % 0-10 [facility] Neutrophil percentageOrdered By: José Manuel Guzman on 05-07-2025 Neutrophils/100 WBC (Bld) 79.6 % High 47-70 [facility] Nucleated red blood cell per centageOrdered By: José Manuel Guzman on 05-07-2025 Nucleated RBC/100 WBC (Bld) [Ratio] 0 % 0-5 [facility] Pelvis 1 or 2 Viewson 2024 Pelvis 1 or 2 Views Normal [facility] Platelet countOrdered By: Ruddy Guzman on 05-07-2025 Platelets (Bld) [#/Vol] 144 10*3/uL Low 150-450 [facility] Potassium measurement (mass/ volume)Ordered By: José Manuel Guzman on 05-07-2025 Potassium (Unsp spec) [Mass/Vol] 4.0 mmol/L 3.3-5.1 [facility] Comment on above: Hemolysis present, R esults could be affected. RBC Auto (Bld) [#/Vol]Ordere d By: José Manuel Guzman on 05-07-2025 RBC (Bld) [#/Vol] 4.01 10*6/uL Low 4.2-5.4 [facility] Serum creatinine measurement (mass/volume)Ordered By: José Manuel Guzman on 05-07-2025 Creatinine [Mass/Vol] 0.92 mg/dL 0.70-1.20 [facility] Serum glucose measurement (m ass/volume)Ordered By: José Manuel Guzman on 05-07-2025 Glucose [Mass/Vol] 143 mg/dL High 70-99 [facility] Serum or plasma calcium susy urement (mass/volume)Ordered By: José Manuel Morejon on 05-07-2025 Calcium [Mass/Vol] 9.2 mg/dL 7.6-11.0 [facility] Serum or plasma urea nitroge n measurement (mass/volume)Ordered By: José Manuel Guzman on 05-07-2025 Urea nitrogen [Mass/Vol] 23 mg/dL High 4-19 [facility] Sodium levelOrdered By: Kartik Guzman on 05-07-2025 Sodium [Moles/Vol] 137 mmol/L 133-145 [facility] Type AND Screenon 05-07-2025 Ab SCREEN GEL Negative Normal [facility] Comment on above: Order Comment: S Performed By: #### B TS ####[facility] [address] [place], [address] White blood cell (WBC) count Ordered By: José Manuel Guzman on 05-07-2025 WBC (Bld) [#/Vol] 11.0 10*3/uL 4.4-11.0 [facility] No Panel InformationOrdered By: Leighton Carrillo on 04-11-2025 [facility] Cardiac [facility] [address] [place] [address] CR - Individual Treatment Plan MR#: [id number] Acct: [id number] Name: GOGO WARE p #:[phone] : 1940 85 From: Leighton Martinez BS, [...] BMI: 28.1 Core - 30-Day Assessment Hypertension [place] [employer] Hypertension Guidelines Reassessment Notes & Comments:: Pt and staff working with finish filer to optimize BP's Core - Final Assessment Hypertension [place] [employer] Hy (more content not included)... [facility] Absolute lymphocyte countOrd ered By: Eh Huddleston on 03-31-2025 Lymphocytes Auto (Unsp spec) [#/Vol] 1.39 10*3/uL 0.83-4.51 [facility] Absolute neutrophil countOrd ered By: Eh Huddleston on 03-31-2025 Neutrophils (Bld) [#/Vol] 2.9 10*3/uL 2.0-7.7 [facility] Anion gap in Serum or Plasma Ordered By: Eh Huddleston on 03-31-2025 Anion gap [Moles/Vol] 12 mmol/L 5-15 [facility] Automated lymphocyte count a s percentage of total leukocytesOrdered By: Eh Huddleston on 03-31-2025 Lymphocytes/100 WBC Auto (Unsp spec) 28.9 % 19-41 [facility] BUN/creatinine ratioOrdered By: Eh Huddleston on 03-31-2025 Urea nitrogen/Creatinine [Mass ratio] 23.5 mg/mg High 10-20 [facility] Basophil percentageOrdered B y: Eh Huddleston on 03-31-2025 Basophils/100 WBC (Bld) 0.6 % 0-1 [facility] Bilirubin, totalOrdered By: Eh Huddleston on 03-31-2025 Bilirubin [Mass/Vol] 0.44 mg/dL 0.00-1.30 [facility] CBC W/Diff, Automatedon Absolute Lymph 1.39 X10 3/uL Normal 0.83-4.51 [facility] Comment on above: Performed By: #### L 501.9520, L506.1001, L100.0100, L500.4050, L500.4100 ####[facility] [address] [place], [address] Absolute Neut 2.9 X10 3/uL Normal 2.0-7.7 [facility] Comment on above: Performed By: #### L 501.9520, L506.1001, L100.0100, L500.4050, L500.4100 ####[facility] [address] [place], [address] Basophils/100 WBC (Bld) 0.6 % Normal 0-1 [facility] Comment on above: Performed By: #### L 501.9520, L506.1001, L100.0100, L500.4050, L500.4100 ####[facility] [address] [place], [address] Eosinophils/100 WBC (Bld) 1.5 % Normal 0-5 [facility] Comment on above: Performed By: #### L 501.9520, L506.1001, L100.0100, L500.4050, L500.4100 ####[facility] [address] [place], [address] Erythrocyte distribution width (RBC) [Ratio] 13.4 % Normal 11.6-14.6 [facility] Comment on above: Performed By: #### L 501.9520, L506.1001, L100.0100, L500.4050, L500.4100 ####[facility] [address] [place], [address] Hematocrit (Bld) [Volume fraction] 36.4 % Low 37-47 [facility] Comment on above: Performed By: #### L 501.9520, L506.1001, L100.0100, L500.4050, L500.4100 ####[facility] [address] [place], [address] Hemoglobin (Bld) [Mass/Vol] 12.2 g/dL Normal 12.0-15.0 [facility] Comment on above: Performed By: #### L 501.9520, L506.1001, L100.0100, L500.4050, L500.4100 ####[facility] [address] [place], [address] IG% 0.200 Normal 0.0-0.9 [facility] Comment on above: Result Comment: IG% - Immature Granulocytes (promyelocytes, myelocytes andmetamyelocytes) > 1% indicates that a LEFT SHIFT is Present. Performed By: #### L 501.9520, L506.1001, L100.0100, L500.4050, L500.4100 ####[facility] [address] [place], [address] Lymphocytes/100 WBC (Bld) 28.9 % Normal 19-41 [facility] Comment on above: Performed By: #### L 501.9520, L506.1001, L100.0100, L500.4050, L500.4100 ####[facility] [address] [place], [address] MCH (RBC) [Entitic mass] 30.3 pg Normal 27.0-32.0 [facility] Comment on above: Performed By: #### L 501.9520, L506.1001, L100.0100, L500.4050, L500.4100 ####[facility] [address] [place], [address] MCHC (RBC) [Mass/Vol] 33.5 g/dL Normal 32-36 [facility] Comment on above: Performed By: #### L 501.9520, L506.1001, L100.0100, L500.4050, L500.4100 ####[facility] [address] [place], [address] MCV (RBC) [Entitic vol] 90.3 fL Normal 81-99 [facility] Comment on above: Performed By: #### L 501.9520, L506.1001, L100.0100, L500.4050, L500.4100 ####[facility] [address] [place], [address] Monocytes/100 WBC (Bld) 8.7 % Normal 0-10 [facility] Comment on above: Performed By: #### L 501.9520, L506.1001, L100.0100, L500.4050, L500.4100 ####[facility] [address] [place], [address] Neutrophils/100 WBC (Bld) 60.1 % Normal 47-70 [facility] Comment on above: Performed By: #### L 501.9520, L506.1001, L100.0100, L500.4050, L500.4100 ####[facility] [address] [place], [address] Nucleated RBC (Bld) [#/Vol] 0 10*3/uL Normal 0-5 [facility] Comment on above: Performed By: #### L 501.9520, L506.1001, L100.0100, L500.4050, L500.4100 ####[facility] [address] [place], [address] Platelet mean volume (Bld) [Entitic vol] 11.0 fL Normal 6.2-12.0 [facility] Comment on above: Performed By: #### L 501.9520, L506.1001, L100.0100, L500.4050, L500.4100 ####[facility] [address] [place], [address] Platelets (Bld) [#/Vol] 162 10*3/uL Normal 150-450 [facility] Comment on above: Performed By: #### L 501.9520, L506.1001, L100.0100, L500.4050, L500.4100 ####[facility] [address] [place], [address] RBC (Bld) [#/Vol] 4.03 10*6/uL Low 4.2-5.4 [facility] Comment on above: Performed By: #### L 501.9520, L506.1001, L100.0100, L500.4050, L500.4100 ####[facility] [address] [place], [address] RDW SD 44.7 fl High 35.1-43.9 [facility] Comment on above: Performed By: #### L 501.9520, L506.1001, L100.0100, L500.4050, L500.4100 ####[facility] [address] [place], [address] WBC (Bld) [#/Vol] 4.8 10*3/uL Normal 4.4-11.0 [facility] Comment on above: Performed By: #### L 501.9520, L506.1001, L100.0100, L500.4050, L500.4100 ####[facility] [address] [place], [address] Calculated very low density lipoprotein (VLDL) cholesterol measurementOrdered By: Eh Huddleston on 03-31-2025 Calculated very low density lipoprotein (VLDL) cholesterol measurement 16 mg/dL 5-40 [facility] Carbon dioxide, total [Moles /volume] in Central venous bloodOrdered By: Eh Huddleston on 03-31-2025 CO2 [Moles/Vol] 21.6 mmol/L 21.0-32.0 [facility] Chloride assayOrdered By: Collin Huddleston on 03-31-2025 Chloride [Moles/Vol] 105 mmol/L 98-108 [facility] Comprehensive Metabolic Prof ilon 03-31-2025 Albumin [Mass/Vol] 4.0 g/dL Normal 3.4-4.8 [facility] Comment on above: Performed By: #### L 501.9520, L506.1001, L100.0100, L500.4050, L500.4100 ####[facility] [address] [place], [address] Albumin/Globulin [Mass ratio] 1.4 {ratio} Normal 0.9-2.4 [facility] Comment on above: Performed By: #### L 501.9520, L506.1001, L100.0100, L500.4050, L500.4100 ####[facility] [address] [place], [address] ALK PHOS 75 U/L Normal 35-104 [facility] Comment on above: Performed By: #### L 501.9520, L506.1001, L100.0100, L500.4050, L500.4100 ####[facility] [address] [place], [address] ALT [Catalytic activity/Vol] 12 U/L Normal <=34 [facility] Comment on above: Performed By: #### L 501.9520, L506.1001, L100.0100, L500.4050, L500.4100 ####[facility] [address] [place], [address] AST [Catalytic activity/Vol] 53 U/L High <=31 [facility] Comment on above: Performed By: #### L 501.9520, L506.1001, L100.0100, L500.4050, L500.4100 ####[facility] [address] [place], [address] Bilirubin [Mass/Vol] 0.44 mg/dL Normal 0.00-1.30 [facility] Comment on above: Performed By: #### L 501.9520, L506.1001, L100.0100, L500.4050, L500.4100 ####[facility] [address] [place], [address] BUN/CRE 23.5 RATIO High 10-20 [facility] [facility] Comment on above: Performed By: #### L 501.9520, L506.1001, L100.0100, L500.4050, L500.4100 ####[facility] [address] [place], [address] Calcium [Mass/Vol] 9.5 mg/dL Normal 7.6-11.0 [facility] Comment on above: Performed By: #### L 501.9520, L506.1001, L100.0100, L500.4050, L500.4100 ####[facility] [address] [place], [address] Chloride [Moles/Vol] 105 mmol/L Normal 98-108 [facility] Comment on above: Performed By: #### L 501.9520, L506.1001, L100.0100, L500.4050, L500.4100 ####[facility] [address] [place], [address] CO2 [Moles/Vol] 21.6 mmol/L Normal 21.0-32.0 [facility] Comment on above: Performed By: #### L 501.9520, L506.1001, L100.0100, L500.4050, L500.4100 ####[facility] [address] [place], [address] Creatinine [Mass/Vol] 0.79 mg/dL Normal 0.70-1.20 [facility] Comment on above: Performed By: #### L 501.9520, L506.1001, L100.0100, L500.4050, L500.4100 ####[facility] [address] [place], [address] GAP 12 Normal 5-15 [facility] Comment on above: Performed By: #### L 501.9520, L506.1001, L100.0100, L500.4050, L500.4100 ####[facility] [address] [place], [address] GFR/1.73 sq M.predicted among non-blacks MDRD (S/P/Bld) [Vol rate/Area] 73 mL/min/{1.73_m2} Normal >60 [facility] Comment on above: Result Comment: mL/m in/1.73m2 CKD-EPI Creatinine Equation (2020) Performed By: #### L 501.9520, L506.1001, L100.0100, L500.4050, L500.4100 ####[facility] [address] [place], [address] Globulin (S) [Mass/Vol] 2.9 g/dL Normal 2.2-4.2 [facility] Comment on above: Performed By: #### L 501.9520, L506.1001, L100.0100, L500.4050, L500.4100 ####[facility] [address] [place], [address] Glucose [Mass/Vol] 99 mg/dL Normal 70-99 [facility] Comment on above: Performed By: #### L 501.9520, L506.1001, L100.0100, L500.4050, L500.4100 ####[facility] [address] [place], [address] Potassium [Moles/Vol] 4.4 mmol/L Normal 3.3-5.1 [facility] Comment on above: Performed By: #### L 501.9520, L506.1001, L100.0100, L500.4050, L500.4100 ####[facility] [address] [place], [address] Sodium [Moles/Vol] 138 mmol/L Normal 133-145 [facility] Comment on above: Performed By: #### L 501.9520, L506.1001, L100.0100, L500.4050, L500.4100 ####[facility] [address] [place], [address] T PROT 6.9 g/dL Normal 5.9-8.4 [facility] Comment on above: Performed By: #### L 501.9520, L506.1001, L100.0100, L500.4050, L500.4100 ####[facility] [address] [place], [address] Urea nitrogen [Mass/Vol] 19 mg/dL Normal 4-19 [facility] Comment on above: Performed By: #### L 501.9520, L506.1001, L100.0100, L500.4050, L500.4100 ####[facility] [address] [place], [address] Eosinophil percentageOrdered By: Eh Huddleston on 03-31-2025 Eosinophils/100 WBC (Bld) 1.5 % 0-5 [facility] Erythrocyte distribution wid th ratioOrdered By: Eh Huddleston on 03-31-2025 Erythrocyte distribution width (RBC) [Ratio] 13.4 % 11.6-14.6 [facility] Erythrocyte distribution wid th standard deviationOrdered By: Eh Huddleston on 03-31-2025 Erythrocyte distribution width (RBC) [Ratio] 44.7 fl High 35.1-43.9 [facility] Glomerular filtration rate ( GFR) estimation/1.73 sq m using serum, plasma, or whole bOrdered By: Eh Huddleston on 03-31-2025 GFR/1.73 sq M.predicted among non-blacks MDRD (S/P/Bld) [Vol rate/Area] 73 mL/min/{1.73_m2} >60 [facility] Comment on above: mL/min/1.73m2 CKD-EP I Creatinine Equation (2020) Hematocrit Auto (Bld) [Volum e fraction]Ordered By: Eh Huddleston on 03-31-2025 Hematocrit (Bld) [Volume fraction] 36.4 % Low 37-47 [facility] Hemoglobin measurementOrdere d By: Eh Huddleston on 03-31-2025 Hemoglobin (Bld) [Mass/Vol] 12.2 g/dL 12.0-15.0 [facility] Immature granulocytes/100 WB C Auto (Bld)Ordered By: Eh Huddleston on 03-31-2025 Immature granulocytes/100 WBC (Bld) 0.200 % 0.0-0.9 [facility] Comment on above: IG% - Immature Granu locytes (promyelocytes, myelocytes and metamyelocytes) > 1% indicates that a LEFT SHIFT is Present. LDL calc ser/plasOrdered By: Eh Huddleston on 03-31-2025 Cholesterol in LDL [Mass/Vol] 64 mg/dL [facility] Comment on above: Tdgaolqnpi=903-046 m g/dL & Higher Ewkw=354 mg/dL or greater Laboratory - Chemistry and C hemistry - challengeOrdered By: Eh Huddleston on 03-31-2025 AST [Catalytic activity/Vol] 53 U/L High <32 [facility] Lipid Profileon 03-31-2025 CHOL:HDL 2.01 Normal [facility] Comment on above: Performed By: #### L 501.9520, L506.1001, L100.0100, L500.4050, L500.4100 ####[facility] [address] [place], [address] Cholesterol [Mass/Vol] 159 mg/dL Normal <=200 [facility] Comment on above: Result Comment: Chol esterol level, Desirable <200 mg/dLBorderline high cholesterol 200-239 mg/dLHigh cholesterol >=240 mg/dLRecommendations of the NCEP Adult Treatment Panel for thefollowing risk-cutoff thresholds for the [place] [facility]. Performed By: #### L 501.9520, L506.1001, L100.0100, L500.4050, L500.4100 ####[facility] [address] [place], [address] Cholesterol in HDL [Mass/Vol] 79 mg/dL Normal [facility] Comment on above: Result Comment: Elaine onal Cholesterol Education Program (NCEP) guidelines:<40 mg/dL: Low HDL-cholesterol (major risk factor for CHD)>= 60 mg/dL: High HDL-cholesterol (negative risk factor forCHD)HDL-cholesterol is affected by a number of factors, e.g.smoking, exercise, hormones, sex and age. Performed By: #### L 501.9520, L506.1001, L100.0100, L500.4050, L500.4100 ####[facility] [address] [place], [address] Cholesterol in LDL [Mass/Vol] 64 mg/dL Normal [facility] Comment on above: Result Comment: Bord jxpjpq=788-811 mg/dL Higher Fqou=704 mg/dL or greater Performed By: #### L 501.9520, L506.1001, L100.0100, L500.4050, L500.4100 ####[facility] [address] [place], [address] Cholesterol in VLDL [Mass/Vol] 16 mg/dL Normal 5-40 [facility] Comment on above: Performed By: #### L 501.9520, L506.1001, L100.0100, L500.4050, L500.4100 ####[facility] [address] [place], [address] Triglyceride [Mass/Vol] 79 mg/dL Normal [facility] Comment on above: Result Comment: The drugs N-Acetylcysteine and Metamizole may falselydepress this assay.Normal range: <150 mg/dLBorderline High: 150-199 mg/dLHigh: 200-499 mg/dLVery High: >500 mg/dL Performed By: #### L 501.9520, L506.1001, L100.0100, L500.4050, L500.4100 ####[facility] [address] [facility] [place], [address] MCV (mean corpuscular volume ) determinationOrdered By: Eh Huddleston on 03-31-2025 MCV (RBC) [Entitic vol] 90.3 fL 81-99 [facility] Mean corpuscular hemoglobin (MCH) determinationOrdered By: Eh Huddleston on 03-31-2025 MCH (RBC) [Entitic mass] 30.3 pg 27.0-32.0 [facility] Mean corpuscular hemoglobin concentration (MCHC) determinationOrdered By: Eh Huddleston on 03-31-2025 MCHC (RBC) [Mass/Vol] 33.5 g/dL 32-36 [facility] Mean platelet volume determi nationOrdered By: Eh Huddleston on 03-31-2025 Platelet mean volume (Bld) [Entitic vol] 11.0 fL 6.2-12.0 [facility] Monocyte percentageOrdered B y: Eh uHddleston on 03-31-2025 Monocytes/100 WBC (Bld) 8.7 % 0-10 [facility] Neutrophil percentageOrdered By: Eh Huddleston on 03-31-2025 Neutrophils/100 WBC (Bld) 60.1 % 47-70 [facility] No Panel InformationOrdered By: Eh Huddleston on 03-31-2025 53 U/L High <32 [facility] Nucleated red blood cell per centageOrdered By: Eh Huddleston on 03-31-2025 Nucleated RBC/100 WBC (Bld) [Ratio] 0 % 0-5 [facility] Platelet countOrdered By: Collin Huddleston on 03-31-2025 Platelets (Bld) [#/Vol] 162 10*3/uL 150-450 [facility] Potassium measurement (mass/ volume)Ordered By: Eh Huddleston on 03-31-2025 Potassium (Unsp spec) [Mass/Vol] 4.4 mmol/L 3.3-5.1 [facility] RBC Auto (Bld) [#/Vol]Ordere d By: Eh Huddleston on 03-31-2025 RBC (Bld) [#/Vol] 4.03 10*6/uL Low 4.2-5.4 [facility] Screening total cholesterol/ high density lipoprotein (HDL) cholesterol ratioOrdered By: Eh Huddleston on 03-31-2025 Cholesterol.total/Cho lesterol in HDL [Mass ratio] 2.01 {ratio} [facility] Serum creatinine measurement (mass/volume)Ordered By: Eh Huddleston on 03-31-2025 Creatinine [Mass/Vol] 0.79 mg/dL 0.70-1.20 [facility] Serum globulin measurementOr dered By: Eh Huddleston 03-31-2025 Globulin (S) [Mass/Vol] 2.9 g/dL 2.2-4.2 [facility] Serum glucose measurement (m ass/volume)Ordered By: Eh Huddleston 03-31-2025 Glucose [Mass/Vol] 99 mg/dL 70-99 [facility] Serum or plasma alanine woodall otransferase (ALT) measurementOrdered By: Eh Huddleston 03-31-2025 ALT [Catalytic activity/Vol] 12 U/L <35 [facility] Serum or plasma albumin susy urement (mass/volume)Ordered By: Eh Huddleston 03-31-2025 Albumin [Mass/Vol] 4.0 g/dL 3.4-4.8 [facility] Serum or plasma albumin/glob ulin mass ratioOrdered By: Eh Huddleston 03-31-2025 Albumin/Globulin [Mass ratio] 1.4 {ratio} 0.9-2.4 [facility] Serum or plasma alkaline taisha sphatase measurementOrdered By: Eh Huddleston on 03-31-2025 ALP [Catalytic activity/Vol] 75 U/L 35-104 [facility] Serum or plasma calcium susy urement (mass/volume)Ordered By: Eh Huddleston on 03-31-2025 Calcium [Mass/Vol] 9.5 mg/dL 7.6-11.0 [facility] Serum or plasma cholesterol in HDL measurement (mass/volume)Ordered By: Eh Huddleston on 03-31-2025 Cholesterol in HDL [Mass/Vol] 79 mg/dL >40 [facility] Comment on above: National Cholesterol Education Program (NCEP) guidelines:<40 mg/dL: Low HDL-cholesterol (major risk factor for CHD)>= 60 mg/dL: High HDL-cholesterol (negative risk factor for CHD)HDL-cholesterol is affected by a number of factors, e.g. smoking, exercise, hormones, sex and age. Serum or plasma cholesterol measurement (mass/volume)Ordered By: Eh Huddleston on 03-31-2025 Cholesterol [Mass/Vol] 159 mg/dL <201 [facility] Comment on above: Cholesterol level, D esirable <200 mg/dLBorderline high cholesterol 200-239 mg/dLHigh cholesterol >=240 mg/dLRecommendations of the NCEP Adult Treatment Panel for the following risk-cutoff thresholds for the [place] population. Serum or plasma urea nitroge n measurement (mass/volume)Ordered By: Eh Huddleston on 03-31-2025 Urea nitrogen [Mass/Vol] 19 mg/dL 4-19 [facility] Sodium levelOrdered By: Eh Huddleston 03-31-2025 Sodium [Moles/Vol] 138 mmol/L 133-145 [facility] TSH DL <= 0.005 mIU/L QnOrde red By: Eh Huddleston on 03-31-2025 TSH Qn 1.610 uIU/mL 0.300-4.20 0 [facility] Thyroid Stim Hormone (TSH)on 03-31-2025 TSH 1.610 uIU/mL Normal 0.300-4.20 0 [facility] Comment on above: Performed By: #### L 501.9520, L506.1001, L100.0100, L500.4050, L500.4100 ####[facility] [address] [place], [place], [address] Total proteinOrdered By: Eh Huddleston on 03-31-2025 Protein [Mass/Vol] 6.9 g/dL 5.9-8.4 [facility] Triglycerides measurementOrd ered By: Eh Huddleston on 03-31-2025 Triglyceride [Mass/Vol] 79 mg/dL <199 [facility] Comment on above: The drugs N-Acetylcy steine and Metamizole may falsely depress this assay. Normal range: <150 mg/dLBorderline High: 150-199 mg/dLHigh: 200-499 mg/dLVery High: >500 mg/dL Vitamin D,25 Hydroxyon 03-31 Vitamin D 25-OH 20.9 ng/mL Low 30-100 [facility] Comment on above: Result Comment: Shu min D StatusDeficiency: <20 ng/mL (50nmol/L)Insufficiency: 20-30 ng/mL (50-75 nmol/L)Sufficiency: 30-100 ng/mL (75-250 nmol/L)Toxicity: >100 ng/mL (>250 nmol/L) Performed By: #### L 501.9520, L506.1001, L100.0100, L500.4050, L500.4100 ####[facility] [address] [place], [address] White blood cell (WBC) count Ordered By: Eh Huddleston on 03-31-2025 WBC (Bld) [#/Vol] 4.8 10*3/uL 4.4-11.0 [facility] CNPNon 03-11-2025 CNPN Telephone (Evergage) GOGO WARE ([id number]) 1940 F Date Time Provider Department 03/11/25 ODILON WELLS During your visit today, we recorded the following information about you: Lori Santamaria 03/11/2025 11:17 AM Signed Received faxed PA request from pharmacy for Eliquis BIN #[id number] PCN#[id number] ID: [id number] Group: [id number] Deng Smith APRN.CNP 03/11/2025 12:21 [...] the left eye daily at bedtime. - uxugnxk-vlgsmqplu-sfowamzf,PF (GQG-VTJY-CMP) 0.5-0.15-2 % ophthalmic solution Use 1 Drop [...] hypertension [I10] 09/09/2017 Coronary artery disease involving [place] guo*04/07/2024 Insomnia [G47.00] 04/07/2024 Glaucoma [H40.9] 04/07/2024 Nonrheumatic aortic valve stenosis [I35.0] 04/07/2024 Acute on chronic diastolic congestive heart kayley*10/29/2024 Severe aortic stenosis [I35.0] 10/30/2024 S/P TAVR (transcatheter aortic valve replacemen*10/30/2024 Encounter Status:Closed by DENG SMITH on 03/11/25 Normal [facility] No Panel InformationOrdered By: Lesa Johnston on 03-11-2025 [facility] [address] [place] [address] CR - Individual Treatment Plan MR#: [id number] Acct: [id number] Name: GOGO WARE p #:[id number] : 1940 84 From: Lesa Johnston PCP: Dr. Eh Huddleston MD DOS: Exercise - Initial Assessment Physician Prescribed Exercise Modalities: Treadmill, Rower, Schwinn Airdyne AD-7, SciFit Stepper, SciFit Pro-II Ergometer and FindlineFit Lateral Mixing Picker Tender Nutrition - Initial Assessment Weight Mgt (Other Care) Height: 5 ft 5.5 in Weight:: 171 lb BMI: 28.0 BMI (Report if calculated above): 28 Core - Initial Assessment Hypertension Resting Blood Pressure:: 132/70 [place] Heart Association Hypertension Guidelines Psychosocial - Initial Assess Target Goals Target Goals Referral to Behavioral Health PS - Interventions: Yes: Referral to Behavioral Health if PHQ-9 score >9: (provided list of local mental health resources) and Yes: Attend Stress Management Classes and No: Referral to [facility] and No: Referral [...] Stepper, SciFit Pro-II Ergometer and SciFit Lateral Mixing Picker Tender Exercise - 60-day Assessment Visit Date of Eval: 03/11/25 Session #:: 20 Physician Prescribed Exercise Modalities: Treadmill, Rower, Schwinn Airdyne AD-7, SciFit Stepper, SciFit Pro-II Ergometer and SciFit Lateral Mixing Picker Tender Frequency: 3x/week for 12 weeks [36 sessions] [...] and understands safetyrisks (more content not included)... [facility] 03-05-2025 [facility] Telephone (CARDHOSP) GOGO WARE ([id number]) 1940 F Date Time Provider Department 03/05/25 [facility] During your visit today, we recorded the following information about you: Lucy Mccall APRN.DATA LIBRARIAN 03/05/2025 2:39 PM Signed Spoke with patient's friend, Marni. 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 She is going to assist her in applying for a copay card. If she doesn't qualify, we discussed the possibility of switching to Coumadin. They will reach out to the office if a switch is needed. Lucy Mccall APRN.DATA LIBRARIAN Allergies As of Date: 03/05/2025 (No Known Allergies) Date Reviewed: 03/02/2025 Reviewed by: Lucy Mccall APRN.DATA LIBRARIAN - Fully Assessed Prescriptions as of 03/05/2025 [...] the left eye daily at bedtime. - emlwxyl-cpjwmrffk-wayaowmg,PF (WMS-NRPT-BGB) 0.5-0.15-2 % ophthalmic solution Use 1 Drop [...] hypertension [I10] 09/09/2017 Coronary artery disease involving [place] guo*04/07/2024 Insomnia [G47.00] 04/07/2024 Glaucoma [H40.9] 04/07/2024 Nonrheumatic aortic valve stenosis [I35.0] 04/07/2024 Acute on chronic diastolic congestive heart kayley*10/29/2024 Severe aortic stenosis [I35.0] 10/30/2024 S/P TAVR (transcatheter aortic valve replacemen*10/30/2024 Encounter Status:Closed by LUCY MCCALL on 03/05/25 [facility] Keri 03-04-2025 [place] Telephone (CARDHOSP) GOGO WARE ([id number]) 1940 F Date Time Provider Department 03/04/25 LUCY MCCALL CARDROLANDO During your visit today, we recorded the following information about you: Lucy Mccall APRN.JACEY 03/04/2025 3:59 PM Signed Spoke with patient regarding CT results. 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 Wells would like patient to remain on Eliquis x 1 year and reassess echo at that time. Request placed for TTE and follow up in 1 year. Lucy Mccall APRN.DATA LIBRARIAN Allergies As of Date: 03/04/2025 (No Known Allergies) Date Reviewed: 03/02/2025 Reviewed by: Lucy Mccall APRN.JACEY - Fully Assessed Primary Visit Diagnosis:S/P TAVR (transcatheter aortic valve replacement) [Z95.2] Other Visit Diagnosis:Severe aortic stenosis [I35.0] Order(s):amoxicillin (AMOXIL) 500 mg capsulePlease take 4 capsules by mouth 30-60 minutes prior to dental appointmentDisp: 4 capsuleRfl: 0 CARDIOVASCULAR MEDICINE OP FOLLOW UP APPT ORDER [[id number]] Order #: [id number]: 1 FUTURE ECHO [[id number]] Order #: [id number]: 1 FUTURE ECG COMPLETE [ECG01] Order #: [id number] FUTURE COMPREHENSIVE METABOLIC PANEL [SQCMP] Order #: [id number] FUTURE BASIC METABOLIC PANEL [SQBMP] Order #: [id number] FUTURE NT PRO BNP [SQNTBNP] Order #: [id number] FUTURE Prescriptions as of 03/04/2025 - amoxicillin [...] the left eye daily at bedtime. - yffkwns-irmmchwbi-rnjkuzkq,PF (KEF-JMBM-KZS) 0.5-0.15-2 % ophthalmic solution Use 1 Drop [...] hypertension [I10] 09/09/2017 Coronary artery disease involving [place] guo*04/07/2024 Insomnia [G47.00] 04/07/2024 Glaucoma [H40.9] 04/07/2024 [...] Encounter Status:Closed by LUCY MCCALL on 03/04/25 Normal [facility] CNOVon 03-02-2025 CNOV Office Visit (CATHMN ) GOGO WARE ([id number]) 1940 F Date Time Provider Department 03/02/25 1:00 PM LUCY MCCALL CATHMN During your visit today, we recorded the following information about you: Respiration Blood pressure Weight Height 17/minute 145/58 75.3 kg 1.664 m Lucy Mccall, AIR QUALITY SPECIALIST.DATA LIBRARIAN 03/02/2025 1:41 PM Signed [facility] [place] Pam López Department of Cardiovascular Medicine SECTION OF INTERVENTIONAL CARDIOLOGY OUTPATIENT VISIT DATE March 01, 2025 OUTPATIENT VISIT TYPE ESTABLISHED FOLLOW UP Primary Book Agent: Dr. Wells Chief Complaint: Patient here for cardiac follow up evaluation History of Present Illness: Patient is a 84 year old female who presents for follow up visit today. Past medical history includes: Aortic stenosis -10/30/2024: s/p TF TAVR with a 23mm Newell Jerry S3 and Stenting of the [employer] FABRICATOR with a 8.0 x 39 mm Neon VBX Balloon expandable stent by Dr. Wells [...] Newell Jerry S3 and Stenting of the [employer] FABRICATOR with a 8.0 x 39 mm Neon VBX Balloon expandable stent by Dr. Wells. [...] in the left eye daily at bedtime. toabyxb-zhlycrpdx-gbqpiaxa,PF (RWD-PQVA-WCT) 0.5-0.15-2 % ophthalmic solution Use 1 Drop [...] stressors HEMATOLOGY/LYMPHOLOGY: (more content not included)... Normal [facility] CREATININE, BLOOD (POC)on Creatinine [Mass/Vol] 1 mg/dL 0.7 - 1.4 mg/dL [facility] GFR/1.73 sq M.predicted among non-blacks MDRD (S/P/Bld) [Vol rate/Area] 55 mL/min/{1.73_m2} mL/min/1.7 3 m2 [facility] Location:Radiology [facility], [address] [place] [address], [facility] Adults (18+): eGFR is calculated using the 2020 CKD-EPI Creatinine Equation. Pediatric patients (<18): eGFR should be clinically calculated using the 2020 Robertson Equation. The National Kidney Foundation provides online calculators. [facility] POINT OF CARE [facility] CT CARDIAC W IVCONon 025 [...] TECHNIQUE: SCANNER:out-patient Siemens Definition Force Dual source [id number] scanner PROTOCOL: Spiral imaging of the heart [...] reconstructions suggesting fast, unrestricted motion - the [place] calcified leaflets are seen displaced into the periphery of the coronary sinuses visualized AORTA: Pathology: No acute aortic pathology. Aortic Size: Normal size visualized segments of thoracic aorta. STJ: maintained. Wall Changes: Mild partially calcified wall changes ascending aorta. Adherent wall thrombus/plaque descending thoracic aorta. AORTIC DIMENSIONS: [place] AORTIC ROOT: 3.0 cm measured ozwjh-sk-mcbxm mid ASCENDING THORACIC AORTA: 3.4 cm mid DESCENDING THORACIC AORTA: 2.1 cm limited upper ABDOMEN: unremarkable BONES and SOFT TISSUES: degenerative changes of the thoracic spine. Truck Farmer (topogram) images: No additional findings. IMPRESSION: s/p TAVR Leaflet Thickening suggest HALT: - Valve leaflets are identified in diastolic reconstructions with thickening along the base of the right sided leaflet Feed Crusher: [facility] Transcribe Date/Time: Mar 02 2025 2:14P Dictated by : OMAR YIN MD This examination was interpreted and the report reviewed and electronically signed by: NICKI MARIE MD on Mar 02 2025 5:52PM EST [id number] Normal [facility] CT Heart W contrast Marifer IMPRESSION: s/p TAVR Leaflet Thickening suggest HALT: - Valve leaflets are identified in diastolic reconstructions with thickening along the base of the right sided leaflet Feed Crusher: [facility] Transcribe Date/Time: Mar 02 2025 [...] TECHNIQUE: SCANNER:out-patient Siemens Definition Force Dual source [id number] scanner PROTOCOL: Spiral imaging of the heart [...] reconstructions suggesting fast, unrestricted motion - the [place] calcified leaflets are seen displaced into the periphery of the coronary sinuses visualized AORTA: Pathology: No acute aortic pathology. Aortic Size: Normal size visualized segments of thoracic aorta. STJ: maintained. Wall Changes: Mild partially calcified wall changes ascending aorta. Adherent wall thrombus/plaque descending thoracic aorta. AORTIC DIMENSIONS: [place] AORTIC ROOT: 3.0 cm measured nuawl-hy-npodz mid ASCENDING THORACIC AORTA: 3.4 cm mid DESCENDING THORACIC AORTA: 2.1 cm limited upper ABDOMEN: unremarkable BONES and SOFT TISSUES: degenerative changes of the thoracic spine. Truck Farmer (topogram) images: No additional findings. DIVISION OF RADIOLOGY Provider, Laurel Kline [facility] - 03/02/2025 * * *Final Report* * [...] TECHNIQUE: SCANNER:out-patient Siemens Definition Force Dual source [id number] scanner PROTOCOL: Spiral imaging of the heart [...] reconstructions suggesting fast, unrestricted motion - the [place] calcified leaflets are seen displaced into the periphery of the coronary sinuses visualized AORTA: Pathology: No acute aortic pathology. Aortic Size: Normal size visualized segments of thoracic aorta. STJ: maintained. Wall Changes: Mild partially calcified wall changes ascending aorta. Adherent wall thrombus/plaque descending thoracic aorta. AORTIC DIMENSIONS: [place] AORTIC ROOT: 3.0 cm measured tzmkl-ai-nwlcx mid ASCENDING THORACIC AORTA: 3.4 cm mid DESCENDING THORACIC AORTA: 2.1 cm limited upper ABDOMEN: unremarkable BONES and SOFT TISSUES: degenerative changes of the thoracic spine. Truck Farmer (topogram) images: No additional findings. IMPRESSION IMPRESSION: s/p TAVR Leaflet Thickening suggest HALT: - Valve leaflets are identified in diastolic reconstructions with thickening along the base of the right sided leaflet Feed Crusher: ESTIVEN Transcribe Date/Time: Mar 02 2025 2:14P Dictated by : OMAR YIN MD This examination was interpreted and the report reviewed and electronically signed by: NICKI MARIE MD on Mar 02 2025 5:52PM EST [facility] Radiology Study observation (narrative) [facility] CT Heart W contrast IVOrdere d By: Ccf Provider on 03-02-2025 [facility] PVR ANK/CEE/TOE [facility] on 03-02-2025 PVR ANK/CEE/TOE [facility] Non-Invasive Vascular Laboratory [facility] J35 Lower Extremity Arterial Physiology Study Bilateral/Complete [...] physician: Pascual Guaman MD, SHERIDAN Final CC [employer] [facility] [facility] Image : [id number] UID See Link below for Image Normal [facility] LEG ARTERIAL PERIPH UNL V LABon 03-02-2025 LEG ARTERIAL PERIPH UNL VAS LAB Non-Invasive Vascular Laboratory [facility] J35 Lower Extremity Arterial Duplex Unilateral - [...] ODILON WELLS Interpreting physician: Pascual Guaman MD, RPLUIS Final CC [facility] : [id number] See Link below for Image [facility]CATHMN[facility] GOGO WARE ([id number]) 1940 F Date Time Provider Department 03/01/25 [...] the left eye daily at bedtime. - juwpdap-yvpxoiwrf-sbrbeawq,PF (DTG-FEXV-UXY) 0.5-0.15-2 % ophthalmic solution Use 1 Drop [...] hypertension [I10] 09/09/2017 Coronary artery disease involving [place] guo*04/07/2024 Insomnia [G47.00] 04/07/2024 Glaucoma [H40.9] 04/07/2024 Nonrheumatic aortic valve stenosis [I35.0] 04/07/2024 Acute on chronic diastolic congestive heart kayley*10/29/2024 Severe aortic stenosis [I35.0] 10/30/2024 S/P TAVR (transcatheter aortic valve replacemen*10/30/2024 Encounter Status:Closed by RAVEN ZAZUETA on 03/01/25 Normal [facility] Telephone (CATHMN) GOGO WARE ([id number]) 1940 F Date Time Provider Department 03/01/25 [...] the left eye daily at bedtime. - vkwqliv-dbpayeduv-ttelknsj,PF (JII-UFSN-YKQ) 0.5-0.15-2 % ophthalmic solution Use 1 Drop [...] hypertension [I10] 09/09/2017 Coronary artery disease involving [place] guo*04/07/2024 Insomnia [G47.00] 04/07/2024 Glaucoma [H40.9] 04/07/2024 Nonrheumatic aortic valve stenosis [I35.0] 04/07/2024 Acute on chronic diastolic congestive heart kayley*10/29/2024 Severe aortic stenosis [I35.0] 10/30/2024 S/P TAVR (transcatheter aortic valve replacemen*10/30/2024 Encounter Status:Closed by RAVEN ZAZUETA on 03/01/25 Normal [facility] CR - History AND Physicalon 01-14-2025 CR - History & Physical Normal [facility] Cardiac rehabilitation evalu ation reportOrdered By: Leighton Carrillo on 01-14-[address] 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 [facility] No Panel InformationOrdered By: Leighton Carrillo on 01-14-2025 [facility] Cardiac Rehab [address] [place] [address] CR - Individual Treatment Plan MR#: [id number] Acct: [id number] Name: GOGO WARE p #:[id number] : 1940 84 From: Leighton Martinez BS, [...] Referral to Physical Therapy: No Referral to [facility] Case Management: No Fall Risk Assessed:: Yes Assistive Devices:: None Exercise - Initial Assessment Visit Date of Eval: 01/14/25 (initial eval) Mets: Pre-: >5 METS for 30 minutes by discharge Physician Prescribed Exercise Modalities: Treadmill, Tinteoinn Airdyne AD-7, SciFit Stepper, Nerve.com Pro-II Ergometer and FindlineFit Lateral [place] Frequency: 3x/week for 12 weeks [36 sessions] [...] program as appropri (more content not included)... [facility] Keri 01-08-2025 [facility] Telephone (CATHMN) GOGO WARE ([id number]) 1940 F Date Time Provider Department 01/08/25 ODILON WELLS During your visit today, we recorded the following information about you: Lita Lora 01/08/2025 2:34 PM Signed Notes and reports sent to [facility] cardiac rehab, along with order Allergies [...] the left eye daily at bedtime. - uoycevj-yezytexiz-hqaqhlhu,PF (ILQ-XBST-OBM) 0.5-0.15-2 % ophthalmic solution Use 1 Drop [...] hypertension [I10] 09/09/2017 Coronary artery disease involving [place] guo*04/07/2024 Insomnia [G47.00] 04/07/2024 Glaucoma [H40.9] 04/07/2024 Nonrheumatic aortic valve stenosis [I35.0] 04/07/2024 Acute on chronic diastolic congestive heart kayley*10/29/2024 Severe aortic stenosis [I35.0] 10/30/2024 S/P TAVR (transcatheter aortic valve replacemen*10/30/2024 Encounter Status:Closed by LITA LORA on 01/08/25 [facility] Keri 12-24-2024 CNPN Telephone (CATHMN) GOGO WARE ([id number]) 1940 F Date Time Provider Department 12/24/24 [...] the left eye daily at bedtime. - qrnagvc-ummtcawvg-zfpsyxrk,PF (YJS-GBJM-SHP) 0.5-0.15-2 % ophthalmic solution Use 1 Drop [...] hypertension [I10] 09/09/2017 Coronary artery disease involving [place] guo*04/07/2024 Insomnia [G47.00] 04/07/2024 Glaucoma [H40.9] 04/07/2024 Nonrheumatic aortic valve stenosis [I35.0] 04/07/2024 Acute on chronic diastolic congestive heart kayley*10/29/2024 Severe aortic stenosis [I35.0] 10/30/2024 S/P TAVR (transcatheter aortic valve replacemen*10/30/2024 Encounter Status:Closed by IRENE BURR on 12/24/24 [facility] Telephone (HVICTR) GOGO WARE ([id number]) 1940 F Date Time Provider Department 12/24/24 ODILON WELLS HVICTR During your visit today, we recorded the following information about you: Chuckie Wells RN 12/24/2024 1:24 PM Addendum [facility] Phone Encounter DATE of SERVICE: 12/24/2024 TIME of SERVICE: 1:03 PM Status: Non-urgent, needs attention Service/Provider: Odilon Clifton MD Reason for call: Follow-up Appointment Contact information: [phone] Resolution: Sent to [facility] Comments: Pt family member is trying to [...] up appointment with Interventional Cariology PAPI directly afterwards---[phone] With cardiology as scheduled/requested- sooner if needed. Will need Arterial Doppler and PVR at 3 mo Chuckie Wells RN Date of Resolution: 12/24/2024 Time of Resolution 1:03 PM Lucy Mccall APRN.JACEY 12/24/2024 2:10 PM Signed Sent to scheduling. Lucy Mccall APRN.CNP Allergies As of Date: 12/24/2024 (No Known [...] the left eye daily at bedtime. - arhiwpc-epqaxmwwg-hnxworov,PF (IDE-BDUE-NNQ) 0.5-0.15-2 % ophthalmic solution Use 1 Drop [...] hypertension [I10] 09/09/2017 Coronary artery disease involving [place] guo*04/07/2024 Insomnia [G47.00] 04/07/2024 Glaucoma [H40.9] 04/07/2024 Nonrheumatic aortic valve stenosis [I35.0] 04/07/2024 Acute on chronic diastolic congestive heart kayley*10/29/2024 Severe aortic stenosis [I35.0] 10/30/2024 S/P TAVR (transcatheter aortic valve replacemen*10/30/2024 Encounter Status:Closed by CHUCKIE WELLS on 12/24/24 Normal [facility] CBC panel Auto (Bld)on 12-23 Erythrocyte distribution width (RBC) [Ratio] 13.0 % Normal 11.5-15.0 [facility] Comment on above: Order Comment: Speci kyrie Type: BLOOD SPECIMEN Ordering Facility: [facility] Address: [address] [place] [address] Performed By: #### 2 4323-8, 58716-0 #### [facility] CLIA [id number] [address] [place] [address] [place] [address] [place] Hematocrit (Bld) [Volume fraction] 35.6 % Low 36.0-46.0 [facility] Comment on above: Order Comment: Speci men Type: BLOOD SPECIMEN Ordering Facility: [facility] Address: [address] [place] [address] Performed By: #### 2 4323-8, 01383-8 #### [facility] CLIA [id number] [address] [place] [address] [place] Hemoglobin (Bld) [Mass/Vol] 11.7 g/dL Normal 11.5-15.5 [facility] Comment on above: Order Comment: Speci men Type: BLOOD SPECIMEN Ordering Facility: [facility] Address: [address] [place] [address] Performed By: #### 2 4323-8, 71898-7 #### [facility] CLIA [id number] [address] [place] [address] [place] MCH (RBC) [Entitic mass] 30.4 pg Normal 26.0-34.0 [facility] Comment on above: Order Comment: Speci men Type: BLOOD SPECIMEN Ordering Facility: [facility] Address: [address] [place] [address] Performed By: #### 2 4323-8, 56876-8 #### [facility] CLIA [id number] [address] [place] [address] [place] MCHC (RBC) [Mass/Vol] 32.9 g/dL Normal 30.5-36.0 [facility] Comment on above: Order Comment: Speci men Type: BLOOD SPECIMEN Ordering Facility: [facility] Address: [address] [place] [address] Performed By: #### 2 4323-8, 34514-5 #### [facility] CLIA [id number] [address] [place] [address] [place] MCV (RBC) [Entitic vol] 92.5 fL Normal 80.0-100.0 [facility] Comment on above: Order Comment: Speci men Type: BLOOD SPECIMEN Ordering Facility: [facility] Address: [address] [place] [address] Performed By: #### 2 4323-8, 96683-1 #### [facility] CLIA [id number] [address] [place] [address] [place] Nucleated RBC (Bld) [#/Vol] 10*3/uL Normal <0.01 [facility] Comment on above: Order Comment: Speci men Type: BLOOD SPECIMEN Ordering Facility: [facility] Address: [address] [place] [address] Performed By: #### 2 4323-8, 47209-7 #### [facility] CLIA [id number] [address] [place] [address] [place] Platelet mean volume (Bld) [Entitic vol] 10.7 fL Normal 9.0-12.7 [facility] Comment on above: Order Comment: Speci men Type: BLOOD SPECIMEN Ordering Facility: [facility] Address: [address] [place] [address] Performed By: #### 2 4323-8, 75483-2 #### [facility] CLIA [id number] [address] [place] [address] [place] Platelets (Bld) [#/Vol] 142 10*3/uL Low 150-400 [facility] Comment on above: Order Comment: Speci men Type: BLOOD SPECIMEN Ordering Facility: [facility] Address: [address] [place] [address] Performed By: #### 2 4323-8, 78584-8 #### [facility] CLIA [id number] [address] [place] [address] [place] RBC (Bld) [#/Vol] 3.85 10*6/uL Low 3.90-5.20 [facility] Comment on above: Order Comment: Speci men Type: BLOOD SPECIMEN Ordering Facility: [facility] Address: [address] [place] [address] Performed By: #### 2 4323-8, 24346-4 #### [facility] CLIA [id number] [address] [place], [place] [address] [address] [place] WBC (Bld) [#/Vol] 6.79 10*3/uL Normal 3.70-11.00 [facility] Comment on above: Order Comment: Speci men Type: BLOOD SPECIMEN Ordering Facility: [facility] Address: [address] [place] [address] Performed By: #### 2 4323-8, 21518-4 #### [facility] CLIA [id number] [address] [place] [address] [place] CNOVon 12-23-2024 CNOV Office Visit (CATHMN ) GOGO WARE ([id number]) 1940 F Date Time Provider Department 12/23/24 1:30 PM DENG SMITH CATHMN During your visit today, we recorded the following information about you: Pulse Respiration Blood pressure Weight 64/minute 18/minute 128/53 74.4 kg Height 1.651 m Deng Smith, AIR QUALITY SPECIALIST.DATA LIBRARIAN 12/23/2024 2:15 PM Signed [facility] [place] Pam López Department of Cardiovascular Medicine SECTION OF INTERVENTIONAL CARDIOLOGY OUTPATIENT VISIT DATE December 23, 2024 OUTPATIENT VISIT TYPE ESTABLISHED FOLLOW UP Primary Book Agent: Russell Donald MD Chief Complaint: Patient here [...] TAVR 23 S3 and Stenting of the R-CANVAS GOODS FABRICATOR with a 8.0 x 39 mm Neon VBX Balloon expandable stent, RLE Arterial Doppler and PVR completed, right CANVAS [employer] FABRICATOR stent patent HFpEF (EF 64%) HTN HLD [...] mo,6 mo and 12 months after procedure. Trnppdr69 mg daily DAPT plavix 75 mg daily [...] up appointment with Interventional Cariology PAPI directly afterwards---[phone] With cardiology as scheduled/requested- sooner if needed. [...] 4lbs from your dry weight, call your finish filer Exercise: Be active and exercise every day. Smoking and alcohol abstinence/cessation, if applicable Heart Failure Education Booklet: information given previously. Please Visit [email or web address] Questions or Concerns after you go home? Please call Nurse director transportation (more content not included)... Normal [facility] Comprehensive metabolic 2000 panelon 12-23-2024 Albumin [Mass/Vol] 4.2 g/dL Normal 3.9-4.9 [facility] Comment on above: Order Comment: Speci men Type: BLOOD SPECIMEN Ordering Facility: [facility] Address: [address] [place] [address] Performed By: #### 2 4323-8, 03618-2 #### [facility] CLIA [id number] [address] [place] [address] [place] [address] [place] ALP [Catalytic activity/Vol] 76 U/L Normal 34-123 [facility] Comment on above: Order Comment: Speci men Type: BLOOD SPECIMEN Ordering Facility: [facility] Address: [address] [place] [address] Performed By: #### 2 4323-8, 39249-0 #### [facility] CLIA [id number] [address] [place] [address] [place] ALT [Catalytic activity/Vol] 12 U/L Normal 7-38 [facility] Comment on above: Order Comment: Speci men Type: BLOOD SPECIMEN Ordering Facility: [facility] Address: [address] [place] [address] Performed By: #### 2 4323-8, 25495-6 #### [facility] CLIA [id number] [address] [place] [address] [place] Anion gap [Moles/Vol] 11 mmol/L Normal 8-15 [facility] Comment on above: Order Comment: Speci men Type: BLOOD SPECIMEN Ordering Facility: [facility] Address: [address] [place] [address] Performed By: #### 2 4323-8, 74115-8 #### [facility] CLIA [id number] [address] [place] [address] [place] AST [Catalytic activity/Vol] 41 U/L High 13-35 [facility] Comment on above: Order Comment: Speci men Type: BLOOD SPECIMEN Ordering Facility: [facility] Address: [address] [place] [address] Performed By: #### 2 4323-8, 86096-6 #### [facility] CLIA [id number] [address] [place] [address] [place] Bilirubin [Mass/Vol] 0.3 mg/dL Normal 0.2-1.3 [facility] Comment on above: Order Comment: Speci men Type: BLOOD SPECIMEN Ordering Facility: [facility] Address: [address] [place] [address] Performed By: #### 2 4323-8, 86079-4 #### [facility] CLIA [id number] [address] [place], [place] [address] [place] Calcium [Mass/Vol] 9.8 mg/dL Normal 8.5-10.2 [facility] Comment on above: Order Comment: Speci men Type: BLOOD SPECIMEN Ordering Facility: [facility] Address: [address] [place] [address] Performed By: #### 2 4323-8, 68542-1 #### [facility] CLIA [id number] [address] [place], [place] [address] [place] Chloride [Moles/Vol] 104 mmol/L Normal 98-107 [facility] Comment on above: Order Comment: Speci men Type: BLOOD SPECIMEN Ordering Facility: [facility] Address: [address] [place] [address] Performed By: #### 2 4323-8, 28920-4 #### [facility] CLIA [id number] [address] [place], [place] [address] [place] CO2 [Moles/Vol] 25 mmol/L Normal 22-30 [facility] Comment on above: Order Comment: Speci men Type: BLOOD SPECIMEN Ordering Facility: [facility] Address: [address] [place] [address] Performed By: #### 2 4323-8, 85480-0 #### [facility] CLIA [id number] [address] [place], [place] [id number] [place] Creatinine [Mass/Vol] 0.85 mg/dL Normal 0.58-0.96 [facility] Comment on above: Order Comment: Speci men Type: BLOOD SPECIMEN Ordering Facility: [facility] Address: [address] [place] [address] Performed By: #### 2 4323-8, 52042-5 #### [facility] CLIA [id number] [address] [place], [place] [id number] [place] Creatinine and Glomerular filtration rate.predicted panel (S/P/Bld) 67 mL/min/1.73m??? Normal >=60 [facility] Comment on above: Order Comment: Terri mittal Type: BLOOD SPECIMEN Ordering Facility: [facility] Address: [address] [place] [address] Result Comment: Leanne mated Glomerular Filtration Rate [...] actual GFR. Performed By: #### 2 4323-8, 82668-4 #### [facility] CLIA [id number] [address] [place] [address] [place] Glucose [Mass/Vol] 99 mg/dL Normal 74-99 [facility] Comment on above: Order Comment: Terri mittal Type: BLOOD SPECIMEN Ordering Facility: [facility] Address: [address] [place] [address] Result Comment: The [place] [employer] (ADA) provides guidance for cutoff [...] Standards of Medical Care in Diabetes 2016, [place] [employer]. Diabetes Care. 2016.39(Suppl 1). Performed By: #### 2 4323-8, 70166-3 #### [facility] CLIA [id number] [address] [place] [address] [place] Potassium [Moles/Vol] 4.7 mmol/L Normal 3.7-5.1 [facility] Comment on above: Order Comment: Speci men Type: BLOOD SPECIMEN Ordering Facility: [facility] Address: [address] [place] [address] Performed By: #### 2 4323-8, 82045-7 #### [facility] CLIA [id number] [address] [place] [address] [place] Protein [Mass/Vol] 7.1 g/dL Normal 6.3-8.0 [facility] Comment on above: Order Comment: Speci men Type: BLOOD SPECIMEN Ordering Facility: [facility] Address: [address] [place] [address] Performed By: #### 2 4323-8, 73909-9 #### [facility] CLIA [id number] [address] [place] [address] [place] Sodium [Moles/Vol] 140 mmol/L Normal 136-144 [facility] Comment on above: Order Comment: Speci men Type: BLOOD SPECIMEN Ordering Facility: [facility] Address: [address] [place] [address] Performed By: #### 2 4323-8, 47100-3 #### [facility] CLIA [id number] [address] [place] [address] [place] Urea nitrogen [Mass/Vol] 27 mg/dL High 7-21 [facility] Comment on above: Order Comment: Speci men Type: BLOOD SPECIMEN Ordering Facility: [facility] Address: [address] [place] [address] Performed By: #### 2 4323-8, 19307-8 #### [facility] CLIA [id number] [address] [place] [address] [place] ECG COMPLETEon 12-23-2024 ECG COMPLETE Ventricular Rate : 6 6 BPM Atrial Rate : 66 BPM P-R Interval : 212 ms QRS Duration : 92 ms Q-T Interval : 398 ms QTC Calculation(Bazett) : 417 ms Calculated P [place] : 70 degrees Calculated R [place] : 23 degrees Calculated T [place] : 76 degrees SINUS RHYTHM WITH 1ST DEGREE AV BLOCK OTHERWISE NORMAL ECG Confirmed by AZUL NAILS MD ([id number]) on 01/05/2025 8:44:10 PM NAME : GOGO WARE PID : [id number] : 1940 Gender : Female Race : ORD : [id number] Procedure Date : Dec 23 2024 09:05:41 Edit Date : Jan 05 2025 20:44:15 Diagnosis: SINUS RHYTHM WITH 1ST DEGREE AV BLOCK OTHERWISE NORMAL ECG Confirmed by AZUL NAILS MD ([id number]) on 01/05/2025 8:44:10 PM Test Reason : Location : 314 : [facility] J14 Overread By : AZUL NAILS MD Edited By : AZUL NAILS MD Referred By : DENG KOENIG Acquired by : ANICETO REYNOLDS [facility] ECHOon 12-23-2024 Echocardiography Echocardiography Rep ort: Transthoracic Echo [place] [id number] Date of service: 12/23/2024 12:20:08 PM [facility] WASHER Ordering physician: ODILON WELLS Indication: TAVR Technologist: [...] * * * Final * * * [employer] [facility] : [id number] goDynamicsSISUID Normal [facility] NT-proBNP [facility] 12-23 Natriuretic peptide.B prohormone N-Terminal [Mass/Vol] 516 pg/mL High <450 [facility] Comment on above: Order Comment: Speci men Type: BLOOD SPECIMEN Ordering Facility: [facility] Address: [address] [place] [address] Performed By: #### 2 4323-8, 67363-5 #### [facility] CLIA [id number] [address] [place] [address] [place] PVR ANK/CEE/TOE [facility] on 02-26-2025 PVR ANK/CEE/TOE [facility] Non-Invasive Vascular Laboratory [facility] J35 Lower Extremity Arterial Physiology Study Bilateral/Complete [...] Nilay Loredo DO, RVT, RPVI Final CC [employer] [facility] : [id number] ID See Link below for Image Normal [facility] LEG ARTERIAL PERIPH UNL V LABon 12-23-2024 [place] LEG ARTERIAL PERIPH UNL VAS LAB Non-Invasive Vascular Laboratory [facility] J35 Lower Extremity Arterial Duplex Unilateral - [...] KOENIG Interpreting physician: Nilay Loredo DO, RVT, RPLUIS Final CC [employer] Medical Image : [id number] goDynamicsSISUID See Link below for Image Normal [facility] CNOVon 11-10-2024 CNOV Office Visit (CATHMN ) GOGO WARE ([id number]) 1940 F Date Time Provider Department 11/10/24 9:45 AM DENG KOENIG CATHMN During your visit today, we recorded the following information about you: Pulse Respiration Blood pressure Weight 62/minute 16/minute 133/55 74.4 kg Deng Koenig, AIR QUALITY SPECIALIST.DATA LIBRARIAN 11/10/2024 10:24 AM Signed [facility] [place] Pam López Department of Cardiovascular Medicine SECTION OF INTERVENTIONAL CARDIOLOGY OUTPATIENT VISIT DATE November 10, 2024 OUTPATIENT VISIT TYPE ESTABLISHED FOLLOW UP Primary Book Agent: Dr. Lindo Chief Complaint: Patient here for [...] TAVR 23 S3 and Stenting of the R-[employer] with a 8.0 x 39 mm Neon VBX Balloon expandable stent, RLE Arterial Doppler and PVR completed, right [employer] stent patent HFpEF (EF 64%) HTN HLD Glaucoma (left eye completely blind) Patient underwent TAVR 23 S3 and Stenting of the [employer] with a 8.0 x 39 mm Neon VBX Balloon expandable stent on 10/30/[address] Wells. RLE Arterial Doppler and PVR completed, right [employer] stent patent. Patient presents today for hospital [...] in the left eye daily at bedtime. porifnb-rplydknyq-nkdozrjx,PF (FYI-EJLR-YJR) 0.5-0.15-2 % ophthalmic solution Use 1 Drop [...] BP 133/55 (more content not included)... Normal [facility] ECG COMPLETEon 11-10-2024 ECG COMPLETE Ventricular Rate : 6 3 BPM Atrial Rate : 63 BPM P-R Interval : 222 ms QRS Duration : 100 ms Q-T Interval : 412 ms QTC Calculation(Bazett) : 421 ms Calculated P [place] : 74 degrees Calculated R [place] : 25 degrees Calculated T [place] : 77 degrees SINUS RHYTHM WITH 1ST DEGREE AV BLOCK OTHERWISE NORMAL ECG Confirmed by MD FREDY, HEBA ([id number]) on 11/16/2024 5:11:31 PM NAME : GOGO WARE PID : [id number] : 1940 Gender : Female Race : ORD : [id number] Procedure Date : Nov 10 2024 09:00:28 Edit Date : Nov 16 2024 17:11:31 Diagnosis: SINUS RHYTHM WITH 1ST DEGREE AV BLOCK OTHERWISE NORMAL ECG Confirmed by MD DANIEL HEBA ([id number]) on 11/16/2024 5:11:31 PM Test Reason : Location : 314 : J14 J14 Overread By : MD DANIEL HEBA Edited By : MD DANIEL HEBA Referred By : , Acquired by : KACY INGRAM [facility] PT EDon 11-01-2024 PT ED HNO ID: [id number] Author: JULIANA GARZON [facility] Service: Pharmacy Author Type: Pharmacist Type: Patient [...] DAILY FURTHER RECOMMENDATIONS (IF ANY): SONYA Garzon [facility] PAGER: [phone] Normal [facility] PT ED HNO ID: [id number] Author: LEE ANN CROUCH DTR Service: Nutrition Therapy Author Type: Baster Hand Type: Patient Education Filed: 11/01/2024 09:50 Note [...] 01, 2024 TIME: 9:49 AM PAGER: Normal [facility] Basic metabolic 2000 panelon 10-31-2024 Anion gap [Moles/Vol] 12 mmol/L Normal 8-15 [facility] Comment on above: Order Comment: Speci men Type: BLOOD SPECIMEN Ordering Facility: [facility] Address: [address] [place] [address] Performed By: #### 2 4323-8, 16736-7 #### [facility] CLIA [id number] [address] [place] [address] [place] Calcium [Mass/Vol] 8.8 mg/dL Normal 8.5-10.2 [facility] Comment on above: Order Comment: Speci men Type: BLOOD SPECIMEN Ordering Facility: [facility] Address: [address] [place] [address] Performed By: #### 2 4323-8, 44366-6 #### [facility] CLIA [id number] [address] [place] [address] [place] Chloride [Moles/Vol] 106 mmol/L Normal 98-107 [facility] Comment on above: Order Comment: Speci men Type: BLOOD SPECIMEN Ordering Facility: [facility] Address: [address] [place] [address] Performed By: #### 2 4323-8, 90874-7 #### [facility] CLIA [id number] [address] [place] [address] [place] CO2 [Moles/Vol] 21 mmol/L Low 22-30 [facility] Comment on above: Order Comment: Speci men Type: BLOOD SPECIMEN Ordering Facility: [facility] Address: [address] [place] [address] Performed By: #### 2 4323-8, 85807-9 #### [facility] CLIA [id number] [address] [place] [address] [place] Creatinine [Mass/Vol] 0.71 mg/dL Normal 0.58-0.96 [facility] Comment on above: Order Comment: Speci men Type: BLOOD SPECIMEN Ordering Facility: [facility] Address: [address] [place] [address] Performed By: #### 2 4323-8, 81170-0 #### [facility] CLIA [id number] [address] [place] [address] [place] Creatinine and Glomerular filtration rate.predicted panel (S/P/Bld) 83 mL/min/1.73m??? Normal >=60 [facility] Comment on above: Order Comment: Terri mittal Type: BLOOD SPECIMEN Ordering Facility: [facility] Address: [address] [place] [address] Result Comment: Leanne mated Glomerular Filtration Rate [...] actual GFR. Performed By: #### 2 4323-8, 15647-5 #### [facility] CLIA [id number] [address] [place] [address] [place] Glucose [Mass/Vol] 117 mg/dL High 74-99 [facility] Comment on above: Order Comment: Terri mittal Type: BLOOD SPECIMEN Ordering Facility: [facility] Address: [address] [place] [address] Result Comment: The [place] [employer] (ADA) provides guidance for cutoff [...] Standards of Medical Care in Diabetes 2016, [place] [employer]. Diabetes Care. 2016.39(Suppl 1). Performed By: #### 2 4323-8, 02466-9 #### [facility] CLIA [id number] [address] [place] [address] [place] Potassium [Moles/Vol] 3.8 mmol/L Normal 3.7-5.1 [facility] Comment on above: Order Comment: Speci men Type: BLOOD SPECIMEN Ordering Facility: [facility] Address: [address] [place] [address] Performed By: #### 2 4323-8, 88074-1 #### [facility] CLIA [id number] [address] [place] [address] [place] Sodium [Moles/Vol] 139 mmol/L Normal 136-144 [facility] Comment on above: Order Comment: Speci men Type: BLOOD SPECIMEN Ordering Facility: [facility] Address: [address] [place] [address] Performed By: #### 2 4323-8, 89638-9 #### [facility] CLIA [id number] [address] [place] [address] [place] Urea nitrogen [Mass/Vol] 15 mg/dL Normal 7-21 [facility] Comment on above: Order Comment: Speci men Type: BLOOD SPECIMEN Ordering Facility: [facility] Address: [address] [place] [address] Performed By: #### 2 4323-8, 95332-4 #### [facility] CLIA [id number] [address] [place] [address] [place] CBC W Auto Differential pane l (Bld)on 10-31-2024 Basophils (Bld) [#/Vol] 0.03 10*3/uL Normal <0.11 [facility] Comment on above: Order Comment: Speci men Type: BLOOD SPECIMEN Ordering Facility: [facility] Address: [address] [place] [address] Performed By: #### 2 4323-8, 80034-7 #### [facility] CLIA [id number] [address] [place] [address] [place] Basophils/100 WBC (Bld) 0.5 % Normal [facility] Comment on above: Order Comment: Speci men Type: BLOOD SPECIMEN Ordering Facility: [facility] Address: [address] [place], [place] [address] Performed By: #### 2 4323-8, 06917-1 #### [facility] CLIA [id number] [address] [place] [address] [place] Differential cell count method Nom (Bld) Auto Normal [facility] Comment on above: Order Comment: Speci men Type: BLOOD SPECIMEN Ordering Facility: [facility] Address: [address] [place] [address] Performed By: #### 2 4323-8, 45154-3 #### [facility] CLIA [id number] [address] [place] [address] [place] Eosinophils (Bld) [#/Vol] 0.08 10*3/uL Normal <0.46 [facility] Comment on above: Order Comment: Speci men Type: BLOOD SPECIMEN Ordering Facility: [facility] Address: [address] [place] [address] Performed By: #### 2 4323-8, 72991-0 #### [facility] CLIA [id number] [address] [place] [address] [place] Eosinophils/100 WBC (Bld) 1.2 % Normal [facility] Comment on above: Order Comment: Speci men Type: BLOOD SPECIMEN Ordering Facility: [facility] Address: [address] [place] [address] Performed By: #### 2 4323-8, 52743-4 #### [facility] CLIA [id number] [address] [place] [address] [place] Erythrocyte distribution width (RBC) [Ratio] 12.9 % Normal 11.5-15.0 [facility] Comment on above: Order Comment: Speci men Type: BLOOD SPECIMEN Ordering Facility: [facility] Address: [address] [place] [address] Performed By: #### 2 4323-8, 18395-0 #### [facility] CLIA [id number] [address] [place] [address] [place] Hematocrit (Bld) [Volume fraction] 30.5 % Low 36.0-46.0 [facility] Comment on above: Order Comment: Speci men Type: BLOOD SPECIMEN Ordering Facility: [facility] Address: [address] [place] [address] Performed By: #### 2 4323-8, 37509-5 #### [facility] CLIA [id number] [address] [place] [address] [place] Hemoglobin (Bld) [Mass/Vol] 10.3 g/dL Low 11.5-15.5 [facility] Comment on above: Order Comment: Speci men Type: BLOOD SPECIMEN Ordering Facility: [facility] Address: [address] [place] [address] Performed By: #### 2 4323-8, 70469-7 #### [facility] CLIA [id number] [address] [place] [address] [place] Immature granulocytes (Bld) [#/Vol] 10*3/uL Normal <0.10 [facility] Comment on above: Order Comment: Speci men Type: BLOOD SPECIMEN Ordering Facility: [facility] Address: [address] [place] [address] Performed By: #### 2 4323-8, 80194-6 #### [facility] CLIA [id number] [address] [place] [address] [place] Immature granulocytes/100 WBC (Bld) 0.2 % Normal [facility] Comment on above: Order Comment: Speci men Type: BLOOD SPECIMEN Ordering Facility: [facility] Address: [address] [place] [address] Performed By: #### 2 4323-8, 78549-6 #### [facility] CLIA [id number] [address] [place] [address] [place] Lymphocytes (Bld) [#/Vol] 1.01 10*3/uL Normal 1.00-4.00 [facility] Comment on above: Order Comment: Speci men Type: BLOOD SPECIMEN Ordering Facility: [facility] Address: [address] [place] [address] Performed By: #### 2 4323-8, 93162-7 #### [facility] CLIA [id number] [address] [place] [address] [place] Lymphocytes/100 WBC (Bld) 15.5 % Normal [facility] Comment on above: Order Comment: Speci men Type: BLOOD SPECIMEN Ordering Facility: [facility] Address: [address] [place] [address] Performed By: #### 2 4323-8, 09426-7 #### [facility] CLIA [id number] [address] [place] [address] [place] MCH (RBC) [Entitic mass] 31.1 pg Normal 26.0-34.0 [facility] Comment on above: Order Comment: Speci men Type: BLOOD SPECIMEN Ordering Facility: [facility] Address: [address] [place] [address] Performed By: #### 2 4323-8, 05426-5 #### [facility] CLIA [id number] [address] [place] [address] [place] MCHC (RBC) [Mass/Vol] 33.8 g/dL Normal 30.5-36.0 [facility] Comment on above: Order Comment: Speci men Type: BLOOD SPECIMEN Ordering Facility: [facility] Address: [address] [place] [address] Performed By: #### 2 4323-8, 33340-5 #### [facility] CLIA [id number] [address] [place] [address] [place] MCV (RBC) [Entitic vol] 92.1 fL Normal 80.0-100.0 [facility] Comment on above: Order Comment: Speci men Type: BLOOD SPECIMEN Ordering Facility: [facility] Address: [address] [place] [address] Performed By: #### 2 4323-8, 14157-7 #### [facility] CLIA [id number] [address] [place] [address] [place] Monocytes (Bld) [#/Vol] 0.70 10*3/uL Normal <0.87 [facility] Comment on above: Order Comment: Speci men Type: BLOOD SPECIMEN Ordering Facility: [facility] Address: [address] [place] [address] Performed By: #### 2 4323-8, 08157-6 #### [facility] CLIA [id number] [address] [place] [address] [place] Monocytes/100 WBC (Bld) 10.7 % Normal [facility] Comment on above: Order Comment: Speci men Type: BLOOD SPECIMEN Ordering Facility: [facility] Address: [address] [place] [address] Performed By: #### 2 4323-8, 88507-6 #### [facility] CLIA [id number] [address] [place] [address] [place] Neutrophils (Bld) [#/Vol] 4.70 10*3/uL Normal 1.45-7.50 [facility] Comment on above: Order Comment: Speci men Type: BLOOD SPECIMEN Ordering Facility: [facility] Address: [address] [place] [address] Performed By: #### 2 4323-8, 34998-0 #### [facility] CLIA [id number] [address] [place] [address] [place] Neutrophils/100 WBC (Bld) 71.9 % Normal [facility] Comment on above: Order Comment: Speci men Type: BLOOD SPECIMEN Ordering Facility: [facility] Address: [address] [place] [address] Performed By: #### 2 4323-8, 68298-7 #### [facility] CLIA [id number] [address] [place] [address] [place] Nucleated RBC (Bld) [#/Vol] 10*3/uL Normal <0.01 [facility] Comment on above: Order Comment: Speci men Type: BLOOD SPECIMEN Ordering Facility: [facility] Address: [address] [place] [address] Performed By: #### 2 4323-8, 30635-4 #### [facility] CLIA [id number] [address] [place] [address] [place] Nucleated RBC/100 WBC (Bld) [Ratio] 0.0 /100 WBC Normal [facility] Comment on above: Order Comment: Speci men Type: BLOOD SPECIMEN Ordering Facility: [facility] Address: [address] [place] [address] Performed By: #### 2 4323-8, 94263-0 #### [facility] CLIA [id number] [address] [place] [address] [place] Platelet mean volume (Bld) [Entitic vol] 10.8 fL Normal 9.0-12.7 [facility] Comment on above: Order Comment: Speci men Type: BLOOD SPECIMEN Ordering Facility: [facility] Address: [address] [place] [address] Performed By: #### 2 4323-8, 21331-5 #### [facility] CLIA [id number] [address] [place] [address] [place] Platelets (Bld) [#/Vol] 112 10*3/uL Low 150-400 [facility] Comment on above: Order Comment: Speci men Type: BLOOD SPECIMEN Ordering Facility: [facility] Address: [address] [place] [address] Result Comment: Resu lts checked and verified.No clot detected. Performed By: #### 2 4323-8, 32763-2 #### [facility] CLIA [id number] [address] [place] [address] [place] RBC (Bld) [#/Vol] 3.31 10*6/uL Low 3.90-5.20 [facility] Comment on above: Order Comment: Speci men Type: BLOOD SPECIMEN Ordering Facility: [facility] Address: [address] [place] [address] Performed By: #### 2 4323-8, 90367-7 #### [facility] IA [id number] [address] [place] [address] [place] WBC (Bld) [#/Vol] 6.53 10*3/uL Normal 3.70-11.00 [facility] Comment on above: Order Comment: Speci men Type: BLOOD SPECIMEN Ordering Facility: [facility] Address: [address] [place] [address] Performed By: #### 2 4323-8, 46865-0 #### [facility] [place] [id number] [address] [place] [address] [place] GHX49ob 10-31-2024 ECG01 Ventricular Rate : 7 8 BPM Atrial Rate : 78 BPM P-R Interval : 202 ms QRS Duration : 98 ms Q-T Interval : 406 ms QTC Calculation(Bazett) : 462 ms Calculated P [place] : 65 degrees Calculated R [place] : 14 degrees Calculated T [place] : 139 degrees NORMAL SINUS RHYTHM LATERAL T WAVE ABNORMALITY ABNORMAL ECG Confirmed by AZUL NAILS MD ([id number]) on 11/10/2024 8:13:51 PM NAME : GOGO WARE PID : [id number] : 1940 Gender : Female Race : ORD : Procedure Date : Oct 31 2024 00:09:41 Edit Date : Nov 10 2024 20:13:52 Diagnosis: NORMAL SINUS RHYTHM LATERAL T WAVE ABNORMALITY ABNORMAL ECG Confirmed by AZUL NAILS MD ([id number]) on 11/10/2024 8:13:51 PM Test Reason : Location : [address] : [place] [address] Overread By : AZUL NAILS MD Edited By : AZUL NAILS MD Referred By : , Acquired by : [facility] rn, Normal [facility] NT-proBNP [facility] 10-31 Natriuretic peptide.B prohormone N-Terminal [Mass/Vol] 1611 pg/mL High <450 [facility] Comment on above: Order Comment: Speci men Type: BLOOD SPECIMEN Ordering Facility: [facility] Address: [address] [place] [address] Performed By: #### 2 4323-8, 05804-4 #### [facility] CLIA [id number] [address] [place] [address] [facility] NURSING PROGon 10-31-2024 NURSING PROG HNO ID: [id number] Author: AMRITA DURAN, LOULOU Service: Nursing Author Type: Registered Nurse Type: Nursing Progress Note Filed: 10/31/2024 10:37 Note Text: Transfer Note: PATIENT NAME: Gogo Ware Patient Location: [place] [address]/04-28-14 Room: Patient transferred into room/unit [facility] in stable condition. Actions taken: Patient belongings with patient. VSS. Pt oriented to room and unit. [place] fall precautions in place and safety maintained. Normal [facility] ANES POSTPROC EVALon 025 ANES POSTPROC EVAL HNO ID: [id number] Author: KENJI NOGUERA DO Service: ? Author Type: Anesthesiologist Type: Anesthesia Postprocedure Evaluation Filed: 10/30/2024 13:42 Note Text: POST ANESTHESIA EVALUATION NOTE : 1940 Procedure Summary Date: 10/30/24 Room / Location: [place] [address] / [facility] CT AND VAS Anesthesia Start: 0700 [...] October 30, 2024 TIME: 1:42 PM CSN: [id number] Normal [facility] ANES PRE-OPon 10-30-2024 ANES PRE-OP HNO ID: [id number] Author: KENJI NOGUERA DO Service: ? Author Type: Anesthesiologist Type: Anesthesia Preprocedure Evaluation Filed: 10/30/2024 06:13 Note Text: ANESTHESIOLOGY DAY OF SURGERY NOTE : 1940 Procedure Information Date/Time: 10/30/2430 Procedure: TRANSCATHETER AORTIC VALVE REPLACEMENT (TAVR/ESAU) W/ PROSTHETIC VALVE PERCUTANEOUS FEMORAL ARTERY APPROACH Location: [place] [address] / [facility] CT AND VAS Surgeons: Odilon Wells [...] failure (HCC) (+) Coronary artery disease involving [place] coronary artery of [place] heart with angina pectoris (HCC) (+) Essential [...] and consent discussed: yes. Patient / Responsible Libertarian agrees to proceed: yes Patient / Surrogate agrees to blood products: Yes Vitals Value Taken Time BP 151/70 10/30/24531 Pulse 62 10/30/2432 Resp 17 10/30/2432 Temp 36 ?C (96.8 ?F) 10/30/24531 SpO2 97 % 10/30/2432 Facility-Administered Medications as of 10/30/2024 Medication Dose [...] October 30, 2024 TIME: 6:13 AM CSN: [id number] Normal [facility] ARTERIAL BLOOD GASESon 10-30 Base deficit (BldA) [Moles/Vol] -1 mmol/L Normal -2-0 [facility] Comment on above: Order Comment: Speci men Type: ARTERIAL BLOOD SPECIMEN Ordering Facility: [facility] Address: [address] [place] [address] Performed By: #### A LLBG #### [facility] CLIA [id number] [address] [place] [address] [place] Calcium.ionized (Bld) [Mass/Vol] 1.27 mmol/L Normal 1.08-1.30 [facility] Comment on above: Order Comment: Speci men Type: ARTERIAL BLOOD SPECIMEN Ordering Facility: [facility] Address: [address] [place] [address] Performed By: #### A LLBG #### [facility] CLIA [id number] [address] [place] [address] [place] Calcium.ionized adjusted to pH 7.4 (BldA) [Moles/Vol] 1.26 mmol/L Normal 1.08-1.30 [facility] Comment on above: Order Comment: Speci men Type: ARTERIAL BLOOD SPECIMEN Ordering Facility: [facility] Address: [address] [place] [address] Performed By: #### A LLBG #### [facility] CLIA [id number] [address] [place] [address] [place] Carboxyhemoglobin (BldA) [Mass fraction] 1.0 % Normal 0.0-2.0 [facility] Comment on above: Order Comment: Speci men Type: ARTERIAL BLOOD SPECIMEN Ordering Facility: [facility] Address: [address] [place] [address] Result Comment: Carb oxyhemoglobin Reference Range for Smokers: 2.0-8.0% Performed By: #### A LLBG #### [facility] CLIA [id number] [address] [place] [address] [place] CO2 (Bld) [Partial pressure] 41 mm Hg Normal 36-46 [facility] Comment on above: Order Comment: Speci men Type: ARTERIAL BLOOD SPECIMEN Ordering Facility: [facility] Address: [address] [place] [address] Performed By: #### A LLBG #### [facility] [facility] CLIA [id number] [address] [place] [address] [place] CO2 adjusted to patient's actual temperature (Bld) [Partial pressure] 41 mmHg Normal 36-46 [facility] Comment on above: Order Comment: Speci men Type: ARTERIAL BLOOD SPECIMEN Ordering Facility: [facility] Address: [address] [place] [address] Performed By: #### A LLBG #### [facility] CLIA [id number] [address] [place] [address] [place] Glucose [Mass/Vol] 119 mg/dL High 60-105 [facility] Comment on above: Order Comment: Speci men Type: ARTERIAL BLOOD SPECIMEN Ordering Facility: [facility] Address: [address] [place] [address] Performed By: #### A LLBG #### [facility] CLIA [id number] [address] [place] [address] [place] HCO3 (Bld) [Moles/Vol] 24 mmol/L Normal 22-26 [facility] Comment on above: Order Comment: Speci men Type: ARTERIAL BLOOD SPECIMEN Ordering Facility: [facility] Address: [address] [place] [address] Performed By: #### A LLBG #### [facility] CLIA [id number] [address] [place] [address] [place] Hematocrit (Bld) [Volume fraction] 31.0 % Low 36.0-46.0 [facility] Comment on above: Order Comment: Speci men Type: ARTERIAL BLOOD SPECIMEN Ordering Facility: [facility] Address: [address] [place] [address] Performed By: #### A LLBG #### [facility] CLIA [id number] [address] [id number] [address] [place] Hemoglobin (Bld) [Mass/Vol] 10.0 g/dL Low 11.5-15.5 [facility] Comment on above: Order Comment: Speci men Type: ARTERIAL BLOOD SPECIMEN Ordering Facility: [facility] Address: [address] [place] [address] Performed By: #### A LLBG #### [facility] CLIA [id number] [address] [place] [address] [place] Lactate [Moles/Vol] 0.6 mmol/L Normal 0.5-2.2 [facility] Comment on above: Order Comment: Speci men Type: ARTERIAL BLOOD SPECIMEN Ordering Facility: [facility] Address: [address] [place] [address] Performed By: #### A LLBG #### [facility] CLIA [id number] [address] [place] [address] [place] Methemoglobin (Bld) [Mass fraction] 0.9 % Normal 0.0-1.5 [facility] Comment on above: Order Comment: Speci men Type: ARTERIAL BLOOD SPECIMEN Ordering Facility: [facility] Address: [address] [place] [address] Performed By: #### A LLBG #### [facility] CLIA [id number] [address] [place], [place] [id number] [place] Oxygen (Bld) [Partial pressure] 200 mm Hg High 85-95 [facility] Comment on above: Order Comment: Speci men Type: ARTERIAL BLOOD SPECIMEN Ordering Facility: [facility] Address: [address] [place] [address] Performed By: #### A LLBG #### [facility] CLIA [id number] [address] [place] [address] [place] Oxygen adjusted to patient's actual temperature (Bld) [Partial pressure] 200 mmHg High 85-95 [facility] Comment on above: Order Comment: Speci men Type: ARTERIAL BLOOD SPECIMEN Ordering Facility: [facility] Address: [address] [place] [address] Performed By: #### A LLBG #### [facility] CLIA [id number] [address] [place] [address] [place] Oxyhemoglobin (BldA) [Mass fraction] 98 % Normal 95-98 [facility] Comment on above: Order Comment: Speci men Type: ARTERIAL BLOOD SPECIMEN Ordering Facility: [facility] Address: [address] [place] [address] Performed By: #### A LLBG #### [facility] CLIA [id number] [address] [place] [address] [place] pH (Bld) 7.38 [pH] Normal 7.35-7.45 [facility] Comment on above: Order Comment: Speci men Type: ARTERIAL BLOOD SPECIMEN Ordering Facility: [facility] Address: [address] [place] [address] Performed By: #### A LLBG #### [facility] CLIA [id number] [address] [place] [address] [place] pH adjusted to patient's actual temperature (Bld) 7.38 Normal 7.35-7.45 [facility] Comment on above: Order Comment: Speci men Type: ARTERIAL BLOOD SPECIMEN Ordering Facility: [facility] Address: [address] [place] [address] Performed By: #### A LLBG #### [facility] CLIA [id number] [address] [place] [address] [place] Potassium [Moles/Vol] 3.7 mmol/L Normal 3.5-5.0 [facility] Comment on above: Order Comment: Speci men Type: ARTERIAL BLOOD SPECIMEN Ordering Facility: [facility] Address: [address] [place] [address] Performed By: #### A LLBG #### [facility] CLIA [id number] [address] [place] [address] [place] Sodium [Moles/Vol] 139 mmol/L Normal 136-144 [facility] Comment on above: Order Comment: Speci men Type: ARTERIAL BLOOD SPECIMEN Ordering Facility: [facility] Address: [address] [place] [address] Performed By: #### A LLBG #### [facility] CLIA [id number] [address] [place] [address] [place] CNDSon 10-30-2024 CNDS HNO ID: [id number] Author: ODILON WELLS MD Service: Cardiovascular Medicine [...] Newell Jerry S3 and Stenting of the R-CANVAS GOODS FABRICATOR with a 8.0 x 39 mm Neon VBX Balloon expandable stent, RLE Arterial Doppler and PVR completed, right CANVAS GOODS FABRICATOR stent patent, patient monitored overnight. Echo post [...] mo,6 mo and 12 months after procedure. 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 If you are not sure about something, please ask. Additional Health Information I Need to Know After I Leave the Hospital: Please check your blood pressure at home and record the (more content not included)... Normal [facility] ECG COMPLETEon 10-30-2024 ECG COMPLETE Ventricular Rate : 5 7 BPM Atrial Rate : 57 BPM P-R Interval : 230 ms QRS Duration : 96 ms Q-T Interval : 470 ms QTC Calculation(Bazett) : 457 ms Calculated P [place] : 76 degrees Calculated R [place] : 21 degrees Calculated T [place] : 80 degrees SINUS BRADYCARDIA WITH 1ST DEGREE AV BLOCK NONSPECIFIC T WAVE ABNORMALITY ABNORMAL ECG Confirmed by AZUL NAILS MD ([id number]) on 11/10/2024 8:13:50 PM NAME : GOGO WARE PID : [id number] : 1940 Gender : Female Race : ORD : [id number] Procedure Date : Oct 30 2024 10:00:18 Edit Date : Nov 10 2024 20:13:52 Diagnosis: SINUS BRADYCARDIA WITH 1ST DEGREE AV BLOCK NONSPECIFIC T WAVE ABNORMALITY ABNORMAL ECG Confirmed by AZUL NAILS MD ([id number]) on 11/10/2024 8:13:50 PM Test Reason : Post-OP Location : 340 : [id number] Overread By : AZUL NAILS MD Edited By : AZUL NAILS MD Referred By : , Acquired by : [id number], Normal [facility] ECHOon 10-30-2024 Echocardiography Echocardiography Rep ort: Transthoracic Echo Main [place] Bedside Date of service: 10/30/2024 10:18:57 AM AND WASHER Ordering physician: ODILON WELLS Indication: S/p TAVR [...] * * * Final * * * [facility] : [id number] goDynamicsSISUID Normal [facility] INTRAOPERATIVE ECHO Donovan 0 10-30-2024 INTRAOPERATIVE ECHO POST Echocardiography Report: Intraoperative Echo Post (TTE) [facility] [place] - J4 Date of service: 10/30/2024 7:08:13 AM [facility] W[facility]ER Ordering physician: KACY JIMENEZ Indication: TAVR Technologist: Lesa Mar and Lalitha Euceda [...] acute aortic pathology. -Successful implantation of 23mm Nweell S3 Ultra TAVR valve via TF approach. - Post dilated 1x -The valve appears well seated without AI by color Doppler. -There is no pericardial effusion. - Exam was compared with the prior CC echocardiographic exam performed on 08/31/2024. s/p TAVR. Final CC [facility] : [id number] goDynamicsSISUID See Link below for Image Normal [facility] OPERATIVE NOon 10-30-2024 OPERATIVE NO HNO ID: [id number] Author: MARCO SMITH MD, PhD Service: Cardiac Surgery Author Type: Physician Type: Operative Report Filed: 11/03/2024 09:25 Note Text: [facility] CARDIO-THORACICSURGERY OPERATIVE/PROCEDURE REPORT LOG ID: [id number] SURGERY/PROCEDURE DATE: 10/30/2024 INCISION/PROCEDURE START TIME: 7:40 AM INCISION CLOSE/PROCEDURE END TIME: 9:45 AM SURGEON(S)/PROCEDURALIST(S) AND BEATER LEAD(S): Surgeons and Role: Panel 1: * Odilon [...] guidance for needle placement Percutaneous Site: R CANVAS GOODS FABRICATOR Transcatheter Aortic Valve Replacement (TAVR): Redcrest Device Used: Yes Temporary Transvenous Pacing Wire [...] with: Covered stent placement TAVR Procedure/Findings: 8x39mm Neon VBX balloon expandable stent deployed in the R CANVAS GOODS FABRICATOR-percloses were not effective due to calcified vessel Post Procedure Details: Patient Tolerance of Procedure: tolerated well, no immediate complications Sponge/Instrument/Needle Counts: Final Counts Correct Specimens: None Surgeon/Assistant Fitness Manager Participation: The primary Surgeon/Proceduralist performed the procedure with assistance. SPECIMENS: COMPLETED BY: Marco Smith MD, PhD PATIENT NAME: Gogo Ware DATE: November 03, 2024 TIME: 9:20 AM AGE: [age] year old Normal [facility] PVR ANK/CEE/TOE [facility] on 10-30-2024 PVR ANK/CEE/TOE [facility] Non-Invasive Vascular Laboratory [facility] [place] Portable Lower Extremity Arterial Physiology Study Bilateral/Complete [...] ankle: Normal at rest. Technologist: Renee Bar Yareli Ordering physician: ODILON WELLS Interpreting physician: Medina Patel MD, SHERIDAN Final [facility] : [id number] D See Link below for Image Normal [facility] TAVR PROCEDURE REPORTon TAVR PROCEDURE REPORT [...] volume. Peripheral Vascular Interventions Stenting of the R-CANVAS GOODS FABRICATOR with a 8.0 x 39 mm Neon VBX Balloon expandable stent [Deployed at 8 ATMs] and post dilated (proximal segment of the stent) with a 8.0 x 40 mm Motion Picture Set Grip balloon. PROCEDURAL DETAILS: Pre-Valve Deployment: The patient [...] artery. Over a Whisper J wire, a Redcrest embolic protection device was deployed in the [...] to a 6F sheath, and proceeded with SCHOOL LUNCH MONITOR of the external iliac artery with a 8.0 x 40 mm Motion Picture Set Grip balloon and compressed the arteriotomy for approx 3 minutes. This reduced bleeding but on follow up angiography we still noticed singificant amount of extravasazation. We then performed SCHOOL LUNCH MONITOR of the R-CANVAS GOODS FABRICATOR with the same skeins yarn examiner balloon involving the arteriotomy site and performed dry hemostasis for approx 3 minutes. This again reduced level of bleeding but not to an adequate level. We thus decided to upsize the inferior 6 Fr sheath to 7Fr sheath for covered stent placement. Care was taken to (more content not included)... Normal [facility] LEG ARTERIAL PERIPH UNL V LABon 10-30-2024 US LEG ARTERIAL PERIPH [facility]L [facility] Non-Invasive Vascular Laboratory [facility] Portable Lower Extremity Arterial Duplex Limited Date [...] physician: Medina Patel MD, RPVI Final CC [facility] : [id number] goDynamicsSISUID See Link below for Image Normal [facility] CBC W Auto Differential pane l (Bld)on 10-29-2024 Basophils (Bld) [#/Vol] 10*3/uL Normal <0.11 [facility] Comment on above: Order Comment: Speci men Type: BLOOD SPECIMEN Ordering Facility: [facility] Address: [address] [place] [address] Performed By: #### 5 7021-8 #### [facility] CLIA [id number] [address] [place] [address] [place] [address] [place] Basophils/100 WBC (Bld) 0.4 % Normal [facility] Comment on above: Order Comment: Speci men Type: BLOOD SPECIMEN Ordering Facility: [facility] Address: [address] [place] [address] Performed By: #### 5 7021-8 #### [facility] CLIA [id number] [address] [place] [address] [place] Differential cell count method Nom (Bld) Auto Normal [facility] Comment on above: Order Comment: Speci men Type: BLOOD SPECIMEN Ordering Facility: [facility] Address: [address] [place] [address] Performed By: #### 5 7021-8 #### [facility] CLIA [id number] [address] [place] [address] [place] Eosinophils (Bld) [#/Vol] 0.13 10*3/uL Normal <0.46 [facility] Comment on above: Order Comment: Speci men Type: BLOOD SPECIMEN Ordering Facility: [facility] Address: [address] [place] [address] Performed By: #### 5 7021-8 #### [facility] CLIA [id number] [address] [place] [address] [place] Eosinophils/100 WBC (Bld) 2.7 % Normal [facility] Comment on above: Order Comment: Speci men Type: BLOOD SPECIMEN Ordering Facility: [facility] Address: [address] [place] [address] Performed By: #### 5 7021-8 #### [facility] CLIA [id number] [address] [place] [address] [place] Erythrocyte distribution width (RBC) [Ratio] 12.8 % Normal 11.5-15.0 [facility] Comment on above: Order Comment: Speci men Type: BLOOD SPECIMEN Ordering Facility: [facility] Address: [address] [place] [address] Performed By: #### 5 7021-8 #### [facility] CLIA [id number] [address] [place] [address] [place] Hematocrit (Bld) [Volume fraction] 37.4 % Normal 36.0-46.0 [facility] Comment on above: Order Comment: Speci men Type: BLOOD SPECIMEN Ordering Facility: [facility] Address: [address] [place] [address] Performed By: #### 5 7021-8 #### [facility] CLIA [id number] [address] [place] [address] [place] Hemoglobin (Bld) [Mass/Vol] 12.2 g/dL Normal 11.5-15.5 [facility] Comment on above: Order Comment: Speci men Type: BLOOD SPECIMEN Ordering Facility: [facility] Address: [address] [place] [address] Performed By: #### 5 7021-8 #### [facility] CLIA [id number] [address] [place] [address] [place] Immature granulocytes (Bld) [#/Vol] 10*3/uL Normal <0.10 [facility] Comment on above: Order Comment: Speci men Type: BLOOD SPECIMEN Ordering Facility: [facility] Address: [address] [place] [address] Performed By: #### 5 7021-8 #### [facility] CLIA [id number] [address] [place] [address] [place] Immature granulocytes/100 WBC (Bld) 0.0 % Normal [facility] Comment on above: Order Comment: Speci men Type: BLOOD SPECIMEN Ordering Facility: [facility] Address: [address] [place] [address] Performed By: #### 5 7021-8 #### [facility] CLIA [id number] [address] [place] [address] [place] Lymphocytes (Bld) [#/Vol] 1.45 10*3/uL Normal 1.00-4.00 [facility] Comment on above: Order Comment: Speci men Type: BLOOD SPECIMEN Ordering Facility: [facility] Address: [address] [place] [address] Performed By: #### 5 7021-8 #### [facility] CLIA [id number] [address] [place] [address] [place] Lymphocytes/100 WBC (Bld) 29.7 % Normal [facility] Comment on above: Order Comment: Speci men Type: BLOOD SPECIMEN Ordering Facility: [facility] Address: [address] [place] [address] Performed By: #### 5 7021-8 #### [facility] CLIA [id number] [address] [place] [address] [place] MCH (RBC) [Entitic mass] 30.5 pg Normal 26.0-34.0 [facility] Comment on above: Order Comment: Speci men Type: BLOOD SPECIMEN Ordering Facility: [facility] Address: [address] [place] [address] Performed By: #### 5 7021-8 #### [facility] CLIA [id number] [address] [place] [address] [place] MCHC (RBC) [Mass/Vol] 32.6 g/dL Normal 30.5-36.0 [facility] Comment on above: Order Comment: Speci men Type: BLOOD SPECIMEN Ordering Facility: [facility] Address: [address] [place] [address] Performed By: #### 5 7021-8 #### [facility] CLIA [id number] [address] [place] [address] [place] MCV (RBC) [Entitic vol] 93.5 fL Normal 80.0-100.0 [facility] Comment on above: Order Comment: Speci men Type: BLOOD SPECIMEN Ordering Facility: [facility] Address: [address] [place] [address] Performed By: #### 5 7021-8 #### [facility] CLIA [id number] [address] [place] [address] [place] Monocytes (Bld) [#/Vol] 0.44 10*3/uL Normal <0.87 [facility] Comment on above: Order Comment: Speci men Type: BLOOD SPECIMEN Ordering Facility: [facility] Address: [address] [place] [address] Performed By: #### 5 7021-8 #### [facility] CLIA [id number] [address] [place] [address] [place] Monocytes/100 WBC (Bld) 9.0 % Normal [facility] Comment on above: Order Comment: Speci men Type: BLOOD SPECIMEN Ordering Facility: [facility] Address: [address] [place] [address] Performed By: #### 5 7021-8 #### [facility] CLIA [id number] [address] [place] [address] [place] Neutrophils (Bld) [#/Vol] 2.84 10*3/uL Normal 1.45-7.50 [facility] Comment on above: Order Comment: Speci men Type: BLOOD SPECIMEN Ordering Facility: [facility] Address: [address] [place] [address] Performed By: #### 5 7021-8 #### [facility] CLIA [id number] [address] [place] [address] [place] Neutrophils/100 WBC (Bld) 58.2 % Normal [facility] Comment on above: Order Comment: Speci men Type: BLOOD SPECIMEN Ordering Facility: [facility] Address: [address] [place] [address] Performed By: #### 5 7021-8 #### [facility] CLIA [id number] [address] [place] [address] [place] Nucleated RBC (Bld) [#/Vol] 10*3/uL Normal <0.01 [facility] Comment on above: Order Comment: Speci men Type: BLOOD SPECIMEN Ordering Facility: [facility] Address: [address] [place] [address] Performed By: #### 5 7021-8 #### [facility] CLIA [id number] [address] [place] [address] [place] Nucleated RBC/100 WBC (Bld) [Ratio] 0.0 /100 WBC Normal [facility] Comment on above: Order Comment: Speci men Type: BLOOD SPECIMEN Ordering Facility: [facility] Address: [address] [place] [address] Performed By: #### 5 7021-8 #### [facility] CLIA [id number] [address] [place] [address] [place] Platelet mean volume (Bld) [Entitic vol] 10.8 fL Normal 9.0-12.7 [facility] Comment on above: Order Comment: Speci men Type: BLOOD SPECIMEN Ordering Facility: [facility] Address: [address] [place] [address] Performed By: #### 5 7021-8 #### [facility] CLIA [id number] [address] [place] [address] [place] Platelets (Bld) [#/Vol] 161 10*3/uL Normal 150-400 [facility] Comment on above: Order Comment: Speci men Type: BLOOD SPECIMEN Ordering Facility: [facility] Address: [address] [place] [address] Performed By: #### 5 7021-8 #### [facility] CLIA [id number] [address] [place] [address] [place] RBC (Bld) [#/Vol] 4.00 10*6/uL Normal 3.90-5.20 [facility] Comment on above: Order Comment: Speci men Type: BLOOD SPECIMEN Ordering Facility: [facility] Address: [address] [place] [address] Performed By: #### 5 7021-8 #### [facility] [place] [id number] [address] [place] [address] [place] WBC (Bld) [#/Vol] 4.88 10*3/uL Normal 3.70-11.00 [facility] Comment on above: Order Comment: Speci men Type: BLOOD SPECIMEN Ordering Facility: [facility] Address: [address] [place] [address] Performed By: #### 5 7021-8 #### [facility] [place] [id number] [address] [place] [address] [place] CNOVon 10-29-2024 CNOV Office Visit (CATHMN ) GOGO WARE ([id number]) 1940 F Date Time Provider Department 10/29/24 1:00 PM [facility] During your visit today, we recorded the following information about you: Pulse Blood pressure Weight Height 65/minute 138/70 73.9 kg 1.651 m Kacy Jimenez APRN.MAINTENANCE PLANNER 10/29/2024 2:10 PM Signed [facility] [place] Pam López Department of Cardiovascular Medicine SECTION OF INTERVENTIONAL CARDIOLOGY OUTPATIENT VISIT DATE October 29, 2024 OUTPATIENT VISIT TYPE ESTABLISHED FOLLOW UP Primary Book Agent: Dr. Lindo Chief Complaint: Patient here for [...] first degree AVB Vent. rate 60 BPM CO interval 212 ms QRS duration 92 ms [...] Abs Lymph 1.00 - 4.00 k/uL 1.45 [place]% % 9.0 Abs [place] <0.87 k/uL 0.44 E[place]% % 2.7 Abs [...] -Glaucoma (left eye completely blind) ASSESSMENT: Gogo Hien Ware has severe, aortic valve stenosis without many symptoms except for a mild decrease in energy, but her ECHO shows significant and her BNP is also elevated. NYHA FC II/III. Beta Madhu: Cor (more content not included)... Normal [facility] CNOV Office Visit (CARTMN ) GOGO WARE ([id number]) 1940 F Date Time Provider Department 10/29/24 [...] Essential (Primary) Hypertension Coronary Artery Disease Involving [place] Coronary Artery of [place] Heart With Angina Pectoris (Hcc) Insomnia Glaucoma [...] at bedtime. Medication Comments documented by Cari Roque, COT on 01/05/2013 at 1354. PT STATES [...] results withi (more content not included)... Normal [facility] Comprehensive metabolic 2000 panelon 10-29-2024 Albumin [Mass/Vol] 4.2 g/dL Normal 3.9-4.9 [facility] Comment on above: Order Comment: Speci men Type: BLOOD SPECIMEN Ordering Facility: [facility] Address: [address] [place] [address] Performed By: #### 2 4323-8, TNT, 09709-9 #### [facility] CLIA [id number] [address] [place] [address] [place] ALP [Catalytic activity/Vol] 65 U/L Normal 34-123 [facility] Comment on above: Order Comment: Speci men Type: BLOOD SPECIMEN Ordering Facility: [facility] Address: [address] [place] [address] Performed By: #### 2 4323-8, HSTNT, 94656-1 #### [facility] CLIA [id number] [address] [place] [address] [place] ALT [Catalytic activity/Vol] 9 U/L Normal 7-38 [facility] Comment on above: Order Comment: Speci men Type: BLOOD SPECIMEN Ordering Facility: [facility] Address: [address] [place] [address] Performed By: #### 2 4323-8, HSTNT, 25453-0 #### [facility] CLIA [id number] [address] [place] [address] [place] Anion gap [Moles/Vol] 10 mmol/L Normal 8-15 [facility] Comment on above: Order Comment: Speci men Type: BLOOD SPECIMEN Ordering Facility: [facility] Address: [address] [place] [address] Performed By: #### 2 4323-8, HSTNT, 11340-0 #### [facility] CLIA [id number] [address] [place] [address] [place] AST [Catalytic activity/Vol] 38 U/L High 13-35 [facility] Comment on above: Order Comment: Speci men Type: BLOOD SPECIMEN Ordering Facility: [facility] Address: [address] [place] [address] Performed By: #### 2 4323-8, HSTNT, 60666-0 #### [facility] CLIA [id number] [address] [place] [address] [place] Bilirubin [Mass/Vol] 0.4 mg/dL Normal 0.2-1.3 [facility] Comment on above: Order Comment: Speci men Type: BLOOD SPECIMEN Ordering Facility: [facility] Address: [address] [place] [address] Performed By: #### 2 4323-8, HSTNT, 88575-9 #### [facility] CLIA [id number] [address] [place] [address] [place] Calcium [Mass/Vol] 9.7 mg/dL Normal 8.5-10.2 [facility] Comment on above: Order Comment: Speci men Type: BLOOD SPECIMEN Ordering Facility: [facility] Address: [address] [place] [address] Performed By: #### 2 4323-8, HSTNT, 58573-6 #### [facility] CLIA [id number] [address] [place] [address] [place] Chloride [Moles/Vol] 106 mmol/L Normal 98-107 [facility] Comment on above: Order Comment: Speci men Type: BLOOD SPECIMEN Ordering Facility: [facility] Address: [address] [place] [address] Performed By: #### 2 4323-8, HSTNT, 13746-3 #### [facility] CLIA [id number] [address] [place] [address] [place] CO2 [Moles/Vol] 25 mmol/L Normal 22-30 [facility] Comment on above: Order Comment: Speci men Type: BLOOD SPECIMEN Ordering Facility: [facility] Address: [address] [place] [address] Performed By: #### 2 4323-8, HSTNT, 47149-1 #### [facility] CLIA [id number] [address] [place], [place] [id number] [place] Creatinine [Mass/Vol] 0.84 mg/dL Normal 0.58-0.96 [facility] Comment on above: Order Comment: Terri mittal Type: BLOOD SPECIMEN Ordering Facility: [facility] Address: [address] [place] [address] Performed By: #### 2 4323-8, HSTNT, 21638-7 #### [facility] CLIA [id number] [address] [place] [address] [place] Creatinine and Glomerular filtration rate.predicted panel (S/P/Bld) 68 mL/min/1.73m??? Normal >=60 [facility] Comment on above: Order Comment: Terri mittal Type: BLOOD SPECIMEN Ordering Facility: [facility] Address: [address] [place] [address] Result Comment: Leanne mated Glomerular Filtration Rate [...] GFR. Performed By: #### 2 4323-8, HSTNT, 68592-0 #### [facility] CLIA [id number] [address] [place] [address] [place] Glucose [Mass/Vol] 114 mg/dL High 74-99 [facility] Comment on above: Order Comment: Terri mittal Type: BLOOD SPECIMEN Ordering Facility: [facility] Address: [address] [place] [address] Result Comment: The [place] Diabetes [employer] (ADA) provides guidance for cutoff [...] Standards of Medical Care in Diabetes 2016, [place] [employer]. Diabetes Care. 2016.39(Suppl 1). Performed By: #### 2 4323-8, HSTNT, 15617-3 #### [facility] CLIA [id number] [address] [place] [address] [place] Potassium [Moles/Vol] 4.3 mmol/L Normal 3.7-5.1 [facility] Comment on above: Order Comment: Speci men Type: BLOOD SPECIMEN Ordering Facility: [facility] Address: [address] [place] [address] Performed By: #### 2 4323-8, HSTNT, 76060-8 #### [facility] CLIA [id number] [address] [place] [address] [place] Protein [Mass/Vol] 6.8 g/dL Normal 6.3-8.0 [facility] Comment on above: Order Comment: Speci men Type: BLOOD SPECIMEN Ordering Facility: [facility] Address: [address] [place], [place] [address] Performed By: #### 2 4323-8, HSTNT, 33137-3 #### [facility] CLIA [id number] [address] [place] [address] [place] Sodium [Moles/Vol] 141 mmol/L Normal 136-144 [facility] Comment on above: Order Comment: Speci men Type: BLOOD SPECIMEN Ordering Facility: [facility] Address: [address] [id number] Performed By: #### 2 4323-8, HSTNT, 24129-0 #### [facility] CLIA [id number] [address] [place], [place] [address] [place] Urea nitrogen [Mass/Vol] 20 mg/dL Normal 7-21 [facility] Comment on above: Order Comment: Speci men Type: BLOOD SPECIMEN Ordering Facility: [facility] Address: [address] [place] [address] Performed By: #### 2 4323-8, HSTNT, 29225-0 #### [facility] [place] [id number] [address] [place] [address] [place] ECG COMPLETEon 10-29-2024 ECG COMPLETE Ventricular Rate : 6 0 BPM Atrial Rate : 60 BPM P-R Interval : 212 ms QRS Duration : 92 ms Q-T Interval : 420 ms QTC Calculation(Bazett) : 420 ms Calculated P [place] : 85 degrees Calculated R [place] : 12 degrees Calculated T [place] : 77 degrees SINUS RHYTHM WITH 1ST DEGREE AV BLOCK OTHERWISE NORMAL ECG Confirmed by AZUL OSMAN MD ([id number]) on 11/03/2024 9:17:13 PM NAME : GOGO WARE PID : [id number] : 1940 Gender : Female Race : ORD : [id number] Procedure Date : Oct 29 2024 09:16:04 Edit Date : Nov 03 2024 21:17:16 Diagnosis: SINUS RHYTHM WITH 1ST DEGREE AV BLOCK OTHERWISE NORMAL ECG Confirmed by AZUL OSMAN MD ([id number]) on 11/03/2024 9:17:13 PM Test Reason : Location : 314 : 14 J1-4 Overread By : AZUL OSMAN MD Edited By : AZUL OSMAN MD Referred By : LUBA LLANES Acquired by : MAYCOL LUCAS [facility] HIGH SENSITIVITY TROPONIN To n 10-29-2024 Troponin T.cardiac High sensitivity method [Mass/Vol] 17 ng/L High <12 [facility] Comment on above: Order Comment: Rahuli men Type: BLOOD SPECIMEN Ordering Facility: [facility] Address: [address] [place] [address] Performed By: #### 2 4323-8, HSTNT, 44838-8 #### [facility] [place] [id number] [address] [place] [address] [place] LPa SerPl-mCncon 10-29-2024 Lipoprotein a [Mass/Vol] 14 mg/dL Normal <30 [facility] Comment on above: Order Comment: Rahuli men Type: BLOOD SPECIMEN Ordering Facility: [facility] Address: [address] [place] [address] Performed By: #### 1 0835-7 #### [facility] CLIA [id number] [address] [place] [address] [place] NT-proBNP Skylarl-Lyndsey 10-29 Natriuretic peptide.B prohormone N-Terminal [Mass/Vol] 1804 pg/mL High <450 [facility] Comment on above: Order Comment: Spechayden men Type: BLOOD SPECIMEN Ordering Facility: [facility] Address: [address] [place] [address] Performed By: #### 2 4323-8, HSTNT, 04019-7 #### [facility] CLIA [id number] [address] [place] [address] [place] PT panel Coag (PPP)on 2024 INR Coag (PPP) [Relative time] 1.1 {INR} Normal 0.9-1.3 [facility] Comment on above: Order Comment: Terri mittal Type: BLOOD SPECIMEN Ordering Facility: [facility] Address: [address] [place] [address] Result Comment: Shu min K Antagonist (VKA) Therapeutic Range: INR 2 to 3 (Target INR of 2.5) Note: For patients treated with VKA drugs, such as warfarin, the [place] [employer] 2012 Guideline recommends [...] 2012, 141:7S-47S Juan R RA, et al. [facility] 2017, 70: 252-289 Performed By: #### 2 4323-8, 45397-7 #### [facility] CLIA [id number] [address] [place] [address] [place] PT Coag (PPP) [Time] 11.4 s Normal 9.7-13.0 [facility] Comment on above: Order Comment: Speci men Type: BLOOD SPECIMEN Ordering Facility: [facility] Address: [address] [place] [address] Performed By: #### 2 4323-8, 06935-8 #### [facility] CLIA [id number] [address] [place] [address] OF [facility] TYPE AND SCREEN,30 DAYon ABO AB Normal [facility] Comment on above: Order Comment: Speci men Type: BLOOD SPECIMENOrdering Facility: [facility] Address: [address] [place] [address] Performed By: #### T SCR30 ####[facility] BLO[facility] BANKCLIA [id number] [place] [address] [place] Rh Nom (Bld) Positive Normal [facility] Comment on above: Order Comment: Speci men Type: BLOOD SPECIMENOrdering Facility: [facility] Address: [address] [place] [address] Performed By: #### T SCR30 ####[facility] BLO[facility] BANKCLIA [id number] [place] [address] [place] XR CHEST 2V [...] thoracic spine. IMPRESSION: No acute radiographic abnormality. Feed Crusher: [facility] Transcribe Date/Time: Oct 29 2024 10:42A Dictated by : LAURA CARPIO MD This examination was interpreted and the report reviewed and electronically signed by: ANGIE ELKINS MD on Oct 29 2024 11:28AM EST [id number] Normal [facility] XR Chest PA and Lateralon Radiology Study observation (narrative) [facility] IMPRESSION: No acute radiographic abnormality. Feed Crusher: [facility] Transcribe Date/Time: Oct 29 2024 10:42A Dictated [...] the thoracic spine. DIVISION OF RADIOLOGY Provider, Julienne Eliud Carrillo - 10/29/2024 * * *Final Report* * [...] spine. IMPRESSION IMPRESSION: No acute radiographic abnormality. Feed Crusher: [facility] Transcribe Date/Time: Oct 29 2024 10:42A Dictated by : LAURA CARPIO MD This examination was interpreted and the report reviewed and electronically signed by: ANGIE ELKINS MD on Oct 29 2024 11:28AM EST [facility] XR Chest PA and LateralOrder ed By: [facility]cf Provider on 10-29-2024 [facility] [id number] DOrdered By: Yareli Huddleston on 10-01-2024 Vitamin D 25-Hydroxy 22.4 ng/mL [facility] Comment on above: Vitamin D 25(OH) Sta tus Range Deficiency <20 ng/mL (50nmol/L) Insufficiency 20 - 30 ng/mL (50 - 75 nmol/L) Sufficiency 30 - 100 ng/mL (75 - 250 nmol/L) Toxicity >100 ng/mL (>250 nmol/L) Absolute neutrophil countOrd ered By: Eh Huddleston on 10-01-2024 Neutrophils (Bld) [#/Vol] 4.2 10*3/uL 2.0-7.7 [facility] Albumin to globulin ratioOrd ered By: Eh Huddleston on 10-01-2024 Albumin/Globulin [Mass ratio] 1.0 {ratio} 0.9-2.4 [facility] Basophil percentageOrdered B y: Eh Huddleston on 10-01-2024 Basophils/100 WBC (Bld) 0.5 % 0-1 [facility] Bilirubin, totalOrdered By: Eh Huddleston on 10-01-2024 Bilirubin [Mass/Vol] 0.50 mg/dL 0.20-1.00 [facility] Comment on above: For patients on eltr ombopag therapy, use of Dimension [place] TBIL is not recommended. Blood urea nitrogen (BUN)/cr eatinine ratioOrdered By: Eh Flaquito on 10-01-2024 Urea nitrogen/Creatinine [Mass ratio] 22.1 mg/mg High 10-20 [facility] CBC W/Diff, Automatedon Absolute Lymph 1.61 X10 3/uL Normal 0.83-4.51 [facility] Comment on above: Performed By: #### L 100.0100, L500.4050, L501.9520, L500.4100, L506.1000 ####[facility] [address] [place], [address] Absolute Neut 4.2 X10 3/uL Normal 2.0-7.7 [facility] Comment on above: Performed By: #### L 100.0100, L500.4050, L501.9520, L500.4100, L506.1000 ####[facility] [address] [place], [address] Basophils/100 WBC (Bld) 0.5 % Normal 0-1 [facility] Comment on above: Performed By: #### L 100.0100, L500.4050, L501.9520, L500.4100, L506.1000 ####[facility] [address] [place], [address] Eosinophils/100 WBC (Bld) 2.0 % Normal 0-5 [facility] Comment on above: Performed By: #### L 100.0100, L500.4050, L501.9520, L500.4100, L506.1000 ####[facility] [address] [place], [address] Erythrocyte distribution width (RBC) [Ratio] 13.2 % Normal 11.6-14.6 [facility] Comment on above: Performed By: #### L 100.0100, L500.4050, L501.9520, L500.4100, L506.1000 ####[facility] [address] [place], [address] Hematocrit (Bld) [Volume fraction] 38.6 % Normal 37-47 [facility] Comment on above: Performed By: #### L 100.0100, L500.4050, L501.9520, L500.4100, L506.1000 ####[facility] [address] [place], [address] Hemoglobin (Bld) [Mass/Vol] 12.6 g/dL Normal 12.0-15.0 [facility] Comment on above: Performed By: #### L 100.0100, L500.4050, L501.9520, L500.4100, L506.1000 ####[facility] [address] [place], [address] IG% 0.200 Normal 0.0-0.9 [facility] Comment on above: Result Comment: IG% - Immature Granulocytes (promyelocytes, myelocytes andmetamyelocytes) > 1% indicates that a LEFT SHIFT is Present. Performed By: #### L 100.0100, L500.4050, L501.9520, L500.4100, L506.1000 ####[facility] [address] [place], [address] Lymphocytes/100 WBC (Bld) 25.0 % Normal 19-41 [facility] Comment on above: Performed By: #### L 100.0100, L500.4050, L501.9520, L500.4100, L506.1000 ####[facility] [address] [place], [address] MCH (RBC) [Entitic mass] 30.9 pg Normal 27.0-32.0 [facility] Comment on above: Performed By: #### L 100.0100, L500.4050, L501.9520, L500.4100, L506.1000 ####[facility] [address] [place], [address] MCHC (RBC) [Mass/Vol] 32.6 g/dL Normal 32-36 [facility] Comment on above: Performed By: #### L 100.0100, L500.4050, L501.9520, L500.4100, L506.1000 ####[facility] [address] [place], [address] MCV (RBC) [Entitic vol] 94.6 fL Normal 81-99 [facility] Comment on above: Performed By: #### L 100.0100, L500.4050, L501.9520, L500.4100, L506.1000 ####[facility] [address] [place], [address] Monocytes/100 WBC (Bld) 6.8 % Normal 0-10 [facility] Comment on above: Performed By: #### L 100.0100, L500.4050, L501.9520, L500.4100, L506.1000 ####[facility] [address] [place], [address] Neutrophils/100 WBC (Bld) 65.5 % Normal 47-70 [facility] Comment on above: Performed By: #### L 100.0100, L500.4050, L501.9520, L500.4100, L506.1000 ####[facility] [address] [place], [address] Nucleated RBC (Bld) [#/Vol] 0 10*3/uL Normal 0-5 [facility] Comment on above: Performed By: #### L 100.0100, L500.4050, L501.9520, L500.4100, L506.1000 ####[facility] [address] [place], [address] Platelet mean volume (Bld) [Entitic vol] 10.6 fL Normal 6.2-12.0 [facility] Comment on above: Performed By: #### L 100.0100, L500.4050, L501.9520, L500.4100, L506.1000 ####[facility] [address] [place], [address] Platelets (Bld) [#/Vol] 187 10*3/uL Normal 150-450 [facility] Comment on above: Performed By: #### L 100.0100, L500.4050, L501.9520, L500.4100, L506.1000 ####[facility] [address] [place], [address] RBC (Bld) [#/Vol] 4.08 10*6/uL Low 4.2-5.4 [facility] Comment on above: Performed By: #### L 100.0100, L500.4050, L501.9520, L500.4100, L506.1000 ####[facility] [address] [place], [address] RDW SD 46.2 fl High 35.1-43.9 [facility] Comment on above: Performed By: #### L 100.0100, L500.4050, L501.9520, L500.4100, L506.1000 ####[facility] [address] [place], [address] WBC (Bld) [#/Vol] 6.4 10*3/uL Normal 4.4-11.0 [facility] Comment on above: Performed By: #### L 100.0100, L500.4050, L501.9520, L500.4100, L506.1000 ####[facility] [address] [place], [address] Carbon dioxide measurementOr dered By: Eh Huddleston on 10-01-2024 CO2 [Moles/Vol] 27.0 mmol/L 21.0-32.0 [facility] Chloride measurementOrdered By: Eh Huddleston on 10-01-2024 Chloride [Moles/Vol] 108 mmol/L High 98-107 [facility] Comprehensive Metabolic Prof ilon 10-01-2024 Albumin [Mass/Vol] 3.8 g/dL Normal 3.2-5.0 [facility] Comment on above: Performed By: #### L 100.0100, L500.4050, L501.9520, L500.4100, L506.1000 ####[facility] [address] [place], [address] Albumin/Globulin [Mass ratio] 1.0 {ratio} Normal 0.9-2.4 [facility] Comment on above: Performed By: #### L 100.0100, L500.4050, L501.9520, L500.4100, L506.1000 ####[facility] [address] [place], [address] ALK P 67 U/L Normal 45-117 [facility] Comment on above: Performed By: #### L 100.0100, L500.4050, L501.9520, L500.4100, L506.1000 ####[facility] [address] [place], [address] ALT [Catalytic activity/Vol] 15 U/L Normal 13-56 [facility] Comment on above: Performed By: #### L 100.0100, L500.4050, L501.9520, L500.4100, L506.1000 ####[facility] [address] [place], [address] AST [Catalytic activity/Vol] 44 U/L High 15-37 [facility] Comment on above: Performed By: #### L 100.0100, L500.4050, L501.9520, L500.4100, L506.1000 ####[facility] [address] [place], [address] Bilirubin [Mass/Vol] 0.50 mg/dL Normal 0.20-1.00 [facility] Comment on above: Result Comment: For patients on eltrombopag therapy, use of Dimension [place] TBIL is not recommended. Performed By: #### L 100.0100, L500.4050, L501.9520, L500.4100, L506.1000 ####[facility] [address] [place], [address] BUN/CRE 22.1 RATIO High 10-20 [facility] Comment on above: Performed By: #### L 100.0100, L500.4050, L501.9520, L500.4100, L506.1000 ####[facility] [address] [place], [address] CA,Total 9.4 mg/dL Normal 8.5-10.1 [facility] Comment on above: Performed By: #### L 100.0100, L500.4050, L501.9520, L500.4100, L506.1000 ####[facility] [address] [place], [address] Chloride [Moles/Vol] 108 mmol/L High 98-107 [facility] Comment on above: Performed By: #### L 100.0100, L500.4050, L501.9520, L500.4100, L506.1000 ####[facility] [address] [place], [address] CO2 [Moles/Vol] 27.0 mmol/L Normal 21.0-32.0 [facility] Comment on above: Performed By: #### L 100.0100, L500.4050, L501.9520, L500.4100, L506.1000 ####[facility] [address] [place], [address] Creatinine [Mass/Vol] 0.90 mg/dL Normal 0.55-1.02 [facility] Comment on above: Result Comment: The validity of the calculated GFR GFRAA in patients over70 years has not been determined. Clinical correlation isessential. Performed By: #### L 100.0100, L500.4050, L501.9520, L500.4100, L506.1000 ####[facility] [address] [place], [address] EST GFR - AA 76 mL/min Normal >60 [facility] Comment on above: Result Comment: Afri can [place] GFR Calc Performed By: #### L 100.0100, L500.4050, L501.9520, L500.4100, L506.1000 ####[facility] [address] [place], [address] GAP 4 Low 5-15 [facility] Comment on above: Performed By: #### L 100.0100, L500.4050, L501.9520, L500.4100, L506.1000 ####[facility] [address] [place], [address] GFR/1.73 sq M.predicted among non-blacks MDRD (S/P/Bld) [Vol rate/Area] 63 mL/min/{1.73_m2} Normal >60 [facility] Comment on above: Result Comment: Non- GFR Calc Performed By: #### L 100.0100, L500.4050, L501.9520, L500.4100, L506.1000 ####[facility] [address] [place], [address] Globulin (S) [Mass/Vol] 3.7 g/dL Normal 2.2-4.2 [facility] Comment on above: Performed By: #### L 100.0100, L500.4050, L501.9520, L500.4100, L506.1000 ####[facility] [address] [place], [address] Glucose [Mass/Vol] 103 mg/dL Normal 74-106 [facility] Comment on above: Result Comment: Fast ing Glucose result from 100 to 125 mg/dLsuggests IMPAIRED HOMEOSTASIS per A.D.A. criteria. Performed By: #### L 100.0100, L500.4050, L501.9520, L500.4100, L506.1000 ####[facility] [address] [place], [address] Potassium [Moles/Vol] 4.4 mmol/L Normal 3.5-5.1 [facility] Comment on above: Performed By: #### L 100.0100, L500.4050, L501.9520, L500.4100, L506.1000 ####[facility] [address] [place], [address] Sodium [Moles/Vol] 139 mmol/L Normal 136-145 [facility] Comment on above: Performed By: #### L 100.0100, L500.4050, L501.9520, L500.4100, L506.1000 ####[facility] [address] [place], [address] T PROT 7.5 g/dL Normal 6.4-8.2 [facility] Comment on above: Performed By: #### L 100.0100, L500.4050, L501.9520, L500.4100, L506.1000 ####[facility] [address] [place], [address] Urea nitrogen [Mass/Vol] 20 mg/dL High 7-18 [facility] Comment on above: Performed By: #### L 100.0100, L500.4050, L501.9520, L500.4100, L506.1000 ####[facility] [address] [place], [address] Eosinophil percentageOrdered By: Eh Huddleston on 10-01-2024 Eosinophils/100 WBC (Bld) 2.0 % 0-5 [facility] Erythrocyte distribution wid th ratioOrdered By: Eh Huddleston on 10-01-2024 Erythrocyte distribution width (RBC) [Ratio] 13.2 % 11.6-14.6 [facility] Erythrocyte distribution wid th standard deviationOrdered By: Eh Flaquito on 10-01-2024 Erythrocyte distribution width (RBC) [Entitic vol] 46.2 fL High 35.1-43.9 [facility] Estimated glomerular filtrat ion rate (GFR) AmericanOrdered By: Eh Huddleston on 10-01-2024 Estimated GFR (MDRD) Amer 76 mL/min >60 [facility] Comment on above: GFR Calc Glomerular filtration rate ( GFR) estimationOrdered By: Eh Huddleston 10-01-2024 Estimated GFR (MDRD) Non-Af Amer 63 mL/min >60 [facility] Comment on above: Non- GFR Calc Glucose measurementOrdered B y: Eh Huddleston on 10-01-2024 Glucose [Mass/Vol] 103 mg/dL 74-106 [facility] Comment on above: Fasting Glucose resu lt from 100 to 125 mg/dL suggests IMPAIRED HOMEOSTASIS per A.D.A. criteria. Hematocrit Auto (Bld) [Volum e fraction]Ordered By: Eh Huddleston on 10-01-2024 Hematocrit (Bld) [Volume fraction] 38.6 % 37-47 [facility] Hemoglobin measurementOrdere d By: Eh Huddleston on 10-01-2024 Hemoglobin (Bld) [Mass/Vol] 12.6 g/dL 12.0-15.0 [facility] High density lipoprotein (HD L) measurementOrdered By: Eh Huddleston 10-01-2024 Cholesterol in HDL [Mass/Vol] 91 mg/dL >40 [facility] Comment on above: The drugs N-Acetylcy steine and Metamizole may falsely depress this assay. Reference Range HDL <40 mg/dL Low HDL Cholesterol HDL >or= 60 mg/dL High HDL Cholesterol Immature granulocytes/100 WB C Auto (Bld)Ordered By: Eh Huddleston on 10-01-2024 Immature granulocytes/100 WBC (Bld) 0.200 % 0.0-0.9 [facility] Comment on above: IG% - Immature Granu locytes (promyelocytes, myelocytes and metamyelocytes) > 1% indicates that a LEFT SHIFT is Present. Laboratory - Chemistry and C hemistry - challengeOrdered By: Eh Huddleston on 10-01-2024 AST [Catalytic activity/Vol] 44 U/L High 15-37 [facility] Lipid Profileon 10-01-2024 Cholesterol [Mass/Vol] 169 mg/dL Normal 200 [facility] Comment on above: Result Comment: <200 mg/dL Desirable 200-240 mg/dL Borderline >240 mg/dL High Risk Performed By: #### L 100.0100, L500.4050, L501.9520, L500.4100, L506.1000 ####[facility] [address] [place], [address] Cholesterol in HDL [Mass/Vol] 91 mg/dL Normal [facility] Comment on above: Result Comment: The drugs N-Acetylcysteine and Metamizole may falselydepress this assay. Reference Range HDL <40 mg/dL Low HDL Cholesterol HDL >or= 60 mg/dL High HDL Cholesterol Performed By: #### L 100.0100, L500.4050, L501.9520, L500.4100, L506.1000 ####[facility] [address] [place], [address] Cholesterol in LDL [Mass/Vol] 61 mg/dL Normal 0-130 [facility] Comment on above: Performed By: #### L 100.0100, L500.4050, L501.9520, L500.4100, L506.1000 ####[facility] [address] [place], [address] Cholesterol in VLDL [Mass/Vol] 17 mg/dL Normal 5-40 [facility] Comment on above: Performed By: #### L 100.0100, L500.4050, L501.9520, L500.4100, L506.1000 ####[facility] [address] [place], [address] Triglyceride [Mass/Vol] 87 mg/dL Normal [facility] Comment on above: Result Comment: The drugs N-Acetylcysteine and Metamizole may falselydepress this assay.Serum Triglycerides Reference Interval Normal <150 mg/dL Borderline high 150 - 199 mg/dL High 200 - 499 mg/dL Very High > or = 500 mg/dL Performed By: #### L 100.0100, L500.4050, L501.9520, L500.4100, L506.1000 ####[facility] [address] [place], [address] Low density lipoprotein (LDL ) cholesterol measurementOrdered By: Eh Huddleston on 10-01-2024 Cholesterol in LDL [Mass/Vol] 61 mg/dL 0-130 [facility] Lymphocytes Auto (Unsp spec) [#/Vol]Ordered By: Eh Huddleston on 10-01-2024 Lymphocytes (Bld) [#/Vol] 1.61 10*3/uL 0.83-4.51 [facility] Lymphocytes/100 WBC Auto (Un sp spec)Ordered By: Eh Huddleston on 10-01-2024 Lymphocytes/100 WBC (Bld) 25.0 % 19-41 [facility] MCV (mean corpuscular volume ) determinationOrdered By: Eh Huddleston on 10-01-2024 MCV (RBC) [Entitic vol] 94.6 fL 81-99 [facility] Mean corpuscular hemoglobin (MCH) determinationOrdered By: Eh Huddleston on 10-01-2024 MCH (RBC) [Entitic mass] 30.9 pg 27.0-32.0 [facility] Mean corpuscular hemoglobin concentration (MCHC) determinationOrdered By: Eh Huddleston on 10-01-2024 MCHC (RBC) [Mass/Vol] 32.6 g/dL 32-36 [facility] Mean platelet volume determi nationOrdered By: Eh Huddleston on 10-01-2024 Platelet mean volume (Bld) [Entitic vol] 10.6 fL 6.2-12.0 [facility] Monocyte percentageOrdered B y: Eh Huddleston on 10-01-2024 Monocytes/100 WBC (Bld) 6.8 % 0-10 [facility] Neutrophil percentageOrdered By: Eh Huddleston on 10-01-2024 Neutrophils/100 WBC (Bld) 65.5 % 47-70 [facility] Nucleated red blood cell per centageOrdered By: Eh Huddleston on 10-01-2024 Nucleated RBC/100 WBC (Bld) [Ratio] 0 % 0-5 [facility] Platelet countOrdered By: Collin Huddleston on 10-01-2024 Platelets (Bld) [#/Vol] 187 10*3/uL 150-450 [facility] Potassium measurementOrdered By: Eh Huddleston on 10-01-2024 Potassium [Moles/Vol] 4.4 mmol/L 3.5-5.1 [facility] RBC Auto (Bld) [#/Vol]Ordere d By: Eh Huddleston on 10-01-2024 RBC (Bld) [#/Vol] 4.08 10*6/uL Low 4.2-5.4 [facility] Serum anion gap measurementO rdered By: Eh Huddleston 10-01-2024 Anion gap [Moles/Vol] 4 mmol/L Low 5-15 [facility] Serum globulin measurementOr dered By: Eh Huddleston 10-01-2024 Globulin (S) [Mass/Vol] 3.7 g/dL 2.2-4.2 [facility] Serum or plasma alanine woodall otransferase (ALT) measurementOrdered By: Eh Huddleston 10-01-2024 ALT [Catalytic activity/Vol] 15 U/L 13-56 [facility] Serum or plasma albumin susy urement (mass/volume)Ordered By: Eh Huddleston 10-01-2024 Albumin [Mass/Vol] 3.8 g/dL 3.2-5.0 [facility] Serum or plasma alkaline taisha sphatase measurementOrdered By: Eh Huddleston on 10-01-2024 ALP [Catalytic activity/Vol] 67 U/L 45-117 [facility] Serum or plasma calcium susy urement (mass/volume)Ordered By: Eh Huddleston on 10-01-2024 Calcium [Mass/Vol] 9.4 mg/dL 8.5-10.1 [facility] Serum or plasma cholesterol measurement (mass/volume)Ordered By: Eh Huddleston on 10-01-2024 Cholesterol [Mass/Vol] 169 mg/dL <200 [facility] Comment on above: <200 mg/dL Desirable 200-240 mg/dL Borderline >240 mg/dL High Risk Serum or plasma creatinine m easurement (mass/volume)Ordered By: Eh Huddleston on 10-01-2024 Creatinine [Mass/Vol] 0.90 mg/dL 0.55-1.02 [facility] Comment on above: The validity of the calculated GFR & GFRAA in patients over 70 years has not been determined. Clinical correlation is essential. Serum or plasma urea nitroge n measurement (mass/volume)Ordered By: Eh Huddleston on 10-01-2024 Urea nitrogen [Mass/Vol] 20 mg/dL High 7-18 [facility] Sodium levelOrdered By: Eh Huddleston on 10-01-2024 Sodium [Moles/Vol] 139 mmol/L 136-145 [facility] TSH QnOrdered By: Eh Huddleston o n 10-01-2024 Thyroid Stimulating Hormone (TSH) 1.540 uIU/mL 0.358-3.74 0 [facility] Thyroid Stim Hormone (TSH)on 10-01-2024 TSH 1.540 uIU/mL Normal 0.358-3.74 0 [facility] Comment on above: Performed By: #### L 100.0100, L500.4050, L501.9520, L500.4100, L506.1000 ####[facility] [address] [place], [address] Total proteinOrdered By: Eh Huddleston on 10-01-2024 Protein [Mass/Vol] 7.5 g/dL 6.4-8.2 [facility] Triglycerides measurementOrd ered By: Eh Huddleston on 10-01-2024 Triglyceride [Mass/Vol] 87 mg/dL <199 [facility] Comment on above: The drugs N-Acetylcy steine and Metamizole may falsely depress this assay.Serum Triglycerides Reference Interval Normal <150 mg/dL Borderline high 150 - 199 mg/dL High 200 - 499 mg/dL Very High > or = 500 mg/dL Very low density lipoprotein (VLDL) cholesterol measurementOrdered By: Eh Huddleston on 10-01-2024 VLDL Cholesterol 17 mg/dL 5-40 [facility] Vitamin D,25 Hydroxyon 10-01 Vitamin D 25-OH 22.4 ng/mL Normal [facility] Comment on above: Result Comment: Shu min D 25(OH) Status Range Deficiency <20 ng/mL (50nmol/L) Insufficiency 20 - 30 ng/mL (50 - 75 nmol/L) Sufficiency 30 - 100 ng/mL (75 - 250 nmol/L) Toxicity >100 ng/mL (>250 nmol/L) Performed By: #### L 100.0100, L500.4050, L501.9520, L500.4100, L506.1000 ####[facility] [address] 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 Arteaga Gogo Ware is from [place] where she lives alone. Patient states that [...] coronary art (more content not included)... Normal [facility] CNOV Office Visit ([facility] ) GOGO WARE ([id number]) 1940 F Date Time Provider Department 09/09/24 1:30 PM GENOVEVA ARTEAGA [facility] During your visit today, we recorded the following information about you: Genoveva Arteaga MD 09/09/2024 3:51 PM Signed [facility] [place] [facility] Template ID: [id number] SERVICE DATE: 09/09/2024 SERVICE TIME: 3:12 PM [...] hypertension [I10] 09/09/2017 Coronary artery disease involving [place]*04/07/2024 Insomnia [G47.00] 04/07/2024 Glaucoma [H40.9] 04/07/2024 Severe aortic stenosis by prior echocardiogram *04/07/2024 Level of Service: OFFICE/OUTPATIENT NEW LOW [facility] 30 MINUTES [32210] LOS History for Encounter Level of Service: OFFICE/OUTPATIENT ESTABLISHED [facility] 30 MIN[32858] Date AND Time: 09-09-2024 3:51 PM Recorded by User: GENOVEVA ARTEAGA Encounter Status:Closed by GENOVEVA ARTEAGA on 09/09/24 Normal [facility] CARDIAC AMYLOID SPECT/[employer] n 09-09-2024 [place] CARDIAC AMYLOID SPECT/CT * * *Final Report* * * DATE OF EXAM: Sep 09 2024 3:40PM [facility] [address] [facility] CARDIAC AMYLOID SPECT/CT / PROCEDURE REASON: multiple diagnoses * * * * Physician Interpretation * * * * AL CTA Report: [facility] Date of service: 09/09/2024 3:11:26 PM CTAC [...] pathologic assessment as appropriate. Nuclear Med Report: [id number] PLANAR and SPECT: Myocardial imaging of the chest with CT attenuation correction was performed at 3 hours post IV injection of Tc-99m Pyrophosphate. See administered doses below. 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 Interpreting [...] * * Final * * * RP Feed Crusher: NIK Transcribe Date/Time: Sep 09 2024 3:11P Dictated by : SYDNEE HARVEY MD This examination was interpreted and the report reviewed and electronically signed by: SYDNEE HARVEY MD on Sep 09 2024 3:56PM EST [id number] Normal [facility] SPECT Heart for infarct W Tc -99m PYP Marifer 09-09-2024 * * *Final Report* * * DATE OF EXAM: Sep 09 2024 3:40PM Jan[facility] 0847 - [place] CARDIAC AMYLOID SPECT/CT / PROCEDURE REASON: multiple diagnoses * * * * Physician Interpretation * * * * [place] CTAC Report: [facility] Date of service: 09/09/2024 3:11:26 PM CTAC [...] pathologic assessment as appropriate. Nuclear Med Report: [id number] PLANAR and SPECT: Myocardial imaging of the chest with CT attenuation correction was performed at 3 hours post IV injection of Tc-99m Pyrophosphate. See administered doses below. [facility] [place] Date of service: 09/09/2024 3:11:26 PM Ordering Physician: Requesting Physician: [facility]) TONY Indication: Suspected Amyloid Heart [...] * * Final * * * RP Feed Crusher: NIK Transcribe Date/Time: Sep 09 2024 3:11P Dictated by : SYDNEE HARVEY MD This examination was interpreted and the report reviewed and electronically signed by: SYDNEE HARVEY MD on Sep 09 2024 3:56PM [facility] Provider, [facility] - 09/09/2024 * * *Final Report* * * DATE OF EXAM: Sep 09 2024 3:40PM [facility] 0847 - [place] CARDIAC AMYLOID SPECT/CT / PROCEDURE REASON: multiple diagnoses * * * * Physician Interpretation * * * * [place] CTAC Report: [facility] Date of service: 09/09/2024 3:11:26 PM CTAC [...] pathologic assessment as appropriate. Nuclear Med Report: [id number] PLANAR and SPECT: Myocardial imaging of the chest with CT attenuation correction was performed at 3 hours post IV injection of Tc-99m Pyrophosphate. See administered doses below. 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 Interpreting physician: [...] * * Final * * * RP Feed Crusher: NIK Transcribe Date/Time: Sep 09 2024 3:11P Dictated by : SYDNEE HARVEY MD This examination was interpreted and the report reviewed and electronically signed by: SYDNEE HARVEY MD on Sep 09 2024 3:56PM EST [facility] Radiology Study observation (narrative) [facility] SPECT Heart for infarct W Tc -99m PYP IVOrdered By: Laurel Provider on 09-09-2024 [facility] CARD CATH DIAGNOSTICon 09-03 CARD CATH DIAGNOSTIC Site Id: [id number] Lab #: [facility] Manager Channel 4 Study Date: 09/03/2024 Start Time: 09/03/2024 [...] HFpEF, HTN, HLD and is undergoing diagnostic C for TAVR evaluation. Access Point Sheath Size [...] x 110cm Optitorque Coronary Angiographic Diagnostic Catheter, [place] Radial TIG 4.0, 1 side hole, 0.038in [...] On: 09/04/2024 at 6:44:50 PM Final CC [employer] [facility] [facility] Image : [id number] DynamicsSISUID See Link below for Image Normal [facility] 09-02-2024 CNPN Telephone (MITESH) GOGO WARE ([id number]) 1940 F Date Time Provider Department 09/02/24 [...] hypertension [I10] 09/09/2017 Coronary artery disease involving [place]*04/07/2024 Insomnia [G47.00] 04/07/2024 Glaucoma [H40.9] 04/07/2024 Severe aortic stenosis by prior echocardiogram *04/07/2024 Encounter Status:Closed by TRINITY DAWKINS RN on 09/02/24 Normal [facility] CBC W Auto Differential pane l (Bld)on 08-31-2024 Basophils (Bld) [#/Vol] 10*3/uL Normal <0.11 [facility] Comment on above: Order Comment: Speci men Type: BLOOD SPECIMENOrdering Facility: [facility] Address: [address] [place] [address] Performed By: #### 5 7021-8 ####[facility] LABCLIA [id number] [facility] [place] [address] [place] Basophils/100 WBC (Bld) 0.3 % Normal [facility] Comment on above: Order Comment: Speci men Type: BLOOD SPECIMENOrdering Facility: [facility] Address: [address] [place] [address] Performed By: #### 5 7021-8 ####[facility] LABCLIA [id number] [place] [address] [place] Differential cell count method Nom (Bld) Auto Normal [facility] Comment on above: Order Comment: Speci men Type: BLOOD SPECIMENOrdering Facility: [facility] Address: [address] [place] [address] Performed By: #### 5 7021-8 ####[facility] LABCLIA [id number] [place] [address] [place] Eosinophils (Bld) [#/Vol] 0.11 10*3/uL Normal <0.46 [facility] Comment on above: Order Comment: Speci men Type: BLOOD SPECIMENOrdering Facility: [facility] Address: [address] [place] [address] Performed By: #### 5 7021-8 ####[facility] LABCLIA [id number] [place] [address] [place] Eosinophils/100 WBC (Bld) 1.7 % Normal [facility] Comment on above: Order Comment: Speci men Type: BLOOD SPECIMENOrdering Facility: [facility] Address: [address] [place] [address] Performed By: #### 5 7021-8 ####[facility] LABCLIA [id number] [place] [address] [place] Erythrocyte distribution width (RBC) [Ratio] 13.3 % Normal 11.5-15.0 [facility] Comment on above: Order Comment: Speci men Type: BLOOD SPECIMENOrdering Facility: [facility] Address: [address] [place] [address] Performed By: #### 5 7021-8 ####[facility] LABIA [id number] [place] [address] [place] Hematocrit (Bld) [Volume fraction] 38.1 % Normal 36.0-46.0 [facility] Comment on above: Order Comment: Speci men Type: BLOOD SPECIMENOrdering Facility: [facility] Address: [address] [place] [address] Performed By: #### 5 7021-8 ####[facility] LABIA [id number] [place] [address] [place] Hemoglobin (Bld) [Mass/Vol] 12.5 g/dL Normal 11.5-15.5 [facility] Comment on above: Order Comment: Speci men Type: BLOOD SPECIMENOrdering Facility: [facility] Address: [address] [place] [address] Performed By: #### 5 7021-8 ####[facility] LABIA [id number] [place] [address] [place] Immature granulocytes (Bld) [#/Vol] 10*3/uL Normal <0.10 [facility] Comment on above: Order Comment: Speci men Type: BLOOD SPECIMENOrdering Facility: [facility] Address: [address] [place] [address] Performed By: #### 5 7021-8 ####[facility] LABIA [id number] [place] [address] [place] Immature granulocytes/100 WBC (Bld) 0.2 % Normal [facility] Comment on above: Order Comment: Speci men Type: BLOOD SPECIMENOrdering Facility: [facility] Address: [address] [place] [address] Performed By: #### 5 7021-8 ####[facility] LABCLIA [id number] [place] [address] [place] Lymphocytes (Bld) [#/Vol] 1.90 10*3/uL Normal 1.00-4.00 [facility] Comment on above: Order Comment: Speci men Type: BLOOD SPECIMENOrdering Facility: [facility] Address: [address] [place] [address] Performed By: #### 5 7021-8 ####[facility] LABCLIA [id number] [place] [address] [place] Lymphocytes/100 WBC (Bld) 30.2 % Normal [facility] Comment on above: Order Comment: Speci men Type: BLOOD SPECIMENOrdering Facility: [facility] Address: [address] [place] [address] Performed By: #### 5 7021-8 ####[facility] LABCLIA [id number] [place] [address] [place] MCH (RBC) [Entitic mass] 31.1 pg Normal 26.0-34.0 [facility] Comment on above: Order Comment: Speci men Type: BLOOD SPECIMENOrdering Facility: [facility] Address: [address] [place] [address] Performed By: #### 5 7021-8 ####[facility] LABCLIA [id number] [place] [address] [place] MCHC (RBC) [Mass/Vol] 32.8 g/dL Normal 30.5-36.0 [facility] Comment on above: Order Comment: Speci men Type: BLOOD SPECIMENOrdering Facility: [facility] Address: [address] [place] [address] Performed By: #### 5 7021-8 ####[facility] LABCLIA [id number] [place] [address] [place] MCV (RBC) [Entitic vol] 94.8 fL Normal 80.0-100.0 [facility] Comment on above: Order Comment: Speci men Type: BLOOD SPECIMENOrdering Facility: [facility] Address: [address] [place] [address] Performed By: #### 5 7021-8 ####[facility] LABCLIA [id number] [place] [address] [place] Monocytes (Bld) [#/Vol] 0.54 10*3/uL Normal <0.87 [facility] Comment on above: Order Comment: Speci men Type: BLOOD SPECIMENOrdering Facility: [facility] Address: [address] [place] [address] Performed By: #### 5 7021-8 ####[facility] LABIA [id number] [place] [address] [place] Monocytes/100 WBC (Bld) 8.6 % Normal [facility] Comment on above: Order Comment: Speci men Type: BLOOD SPECIMENOrdering Facility: [facility] Address: [address] [place] [address] Performed By: #### 5 7021-8 ####[facility] LABCLIA [id number] [place] [address] [place] Neutrophils (Bld) [#/Vol] 3.72 10*3/uL Normal 1.45-7.50 [facility] Comment on above: Order Comment: Speci men Type: BLOOD SPECIMENOrdering Facility: [facility] Address: [address] [place] [address] Performed By: #### 5 7021-8 ####[facility] LABCLIA [id number] [place] [address] [place] Neutrophils/100 WBC (Bld) 59.0 % Normal [facility] Comment on above: Order Comment: Speci men Type: BLOOD SPECIMENOrdering Facility: [facility] Address: [address] [place] [address] Performed By: #### 5 7021-8 ####[facility] LABCLIA [id number] [place] [address] [place] Nucleated RBC (Bld) [#/Vol] 10*3/uL Normal <0.01 [facility] Comment on above: Order Comment: Speci men Type: BLOOD SPECIMENOrdering Facility: [facility] Address: [address] [place] [address] Performed By: #### 5 7021-8 ####[facility] LABCLIA [id number] [place] [address] [place] Nucleated RBC/100 WBC (Bld) [Ratio] 0.0 /100 WBC Normal [facility] Comment on above: Order Comment: Speci men Type: BLOOD SPECIMENOrdering Facility: [facility] Address: [address] [place] [address] Performed By: #### 5 7021-8 ####[facility] LABCLIA [id number] [place] [address] [place] Platelet mean volume (Bld) [Entitic vol] 10.8 fL Normal 9.0-12.7 [facility] Comment on above: Order Comment: Speci men Type: BLOOD SPECIMENOrdering Facility: [facility] Address: [address] [place] [address] Performed By: #### 5 7021-8 ####[facility] LABCLIA [id number] [place] [address] [place] Platelets (Bld) [#/Vol] 157 10*3/uL Normal 150-400 [facility] Comment on above: Order Comment: Speci men Type: BLOOD SPECIMENOrdering Facility: [facility] Address: [address] [place] [address] Performed By: #### 5 7021-8 ####[facility] LABIA [id number] [place] [address] [place] RBC (Bld) [#/Vol] 4.02 10*6/uL Normal 3.90-5.20 [facility] Comment on above: Order Comment: Speci men Type: BLOOD SPECIMENOrdering Facility: [facility] Address: [address] [place] [address] Performed By: #### 5 7021-8 ####[facility] LABIA [id number] [place] [address] [place] WBC (Bld) [#/Vol] 6.30 10*3/uL Normal 3.70-11.00 [facility] Comment on above: Order Comment: Speci men Type: BLOOD SPECIMENOrdering Facility: [facility] Address: [address] [place] [address] Performed By: #### 5 7021-8 ####[facility] LABIA [id number] [place] [address] [place] CNOVon 08-31-2024 CNOV Office Visit (CATHMN ) GOGO WARE ([id number]) 1940 F Date Time Provider Department 08/31/24 9:45 AM ODILON WELLS During your visit today, we recorded the following information about you: Pulse Respiration Blood pressure Weight 65/minute 18/minute 144/59 74.2 kg Height 1.651 m Odilon Wells MD 08/31/2024 10:20 AM [facility]ly [facility] Heart [facility] Vascular Gerardo López Department of Cardiovascular Medicine SECTION OF INTERVENTIONAL CARDIOLOGY OUTPATIENT VISIT DATE August 31, 2024 OUTPATIENT VISIT TYPE NEW PRIMARY CARE PHYSICIAN: Berta Rankin [address] [id number] REFERRING PHYSICIAN: James Lindo MD, PhD, [facility] Staff, Section of Cardiovascular Imaging Department of Cardiovascular Medicine [facility] [place] [facility] CHIEF COMPLAINT: TAVR evaluation HISTORY OF PRESENT ILLNESS: Ms. Ware is a 84 year old female from [place] who presents today for TAVR evaluation. She [...] (left eye completely blind) She lives in [facility], and she is very functionally active. [...] resulted at 1500. Her daughter lives in [place] and rest of her family in [facility]. PAST MEDICAL HISTORY Diagnosis Date Aortic valve [...] Oropharynx: T (more content not included)... Normal [facility] CREATININE, BLOOD (POC)on Creatinine [Mass/Vol] 0.80 mg/dL 0.7 - 1.4 mg/dL [facility] eGFR (POCT) mL/min/1.7 3 m2 [facility] Location:Radiology C [facility], [address] [place] [address], [address] [place] [address] POINT OF CARE [facility] CTA C/A/P (GATED) W IVCONon 08-31-2024 CTA C/A/P (GATED) W IVCON * * *Final Report* * * DATE OF EXAM: Aug 31 2024 12:44PM [facility] 0133 - CTA C/A/P (GATED) W [...] AORTIC DIMENSIONS: AORTIC ROOT: 3.0 cm measured xkkoq-cp-upnvl STJ: 2.5 cm mid ASCENDING THORACIC AORTA: [...] the thoracic and lumbar spine.Bilateral hip arthroplasty Truck Farmer (topogram) images: No additional findings. IMPRESSION: Normal Thoracic and Abdominal Aor (more content not included)... Normal [facility] CTA Chest vessels and Abdomi nal vessels and Pelvis vessels W contrast Marifer 08-31-2024 IMPRESSION: Normal Thoracic and Abdominal Aortic Anatomy. Atherosclerotic changes as in the body of the report. Minimum luminal diameter throughout: 6 mm. Aortic Annulus Anatomy as described above. 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 Feed Crusher: [facility] Transcribe Date/Time: Aug 31 2024 1:26P Dictated by : IRENE GILMORE MD This examination was interpreted and the report reviewed and electronically signed by: IRENE GILMORE MD on Aug 31 2024 2:01PM [facility] * * *Final Report* * * DATE OF EXAM: Aug 31 2024 12:44PM [facility] 0133 - CTA C/A/P (GATED) W [...] AORTIC DIMENSIONS: AORTIC ROOT: 3.0 cm measured gdllp-yu-afyha STJ: 2.5 cm mid ASCENDING THORACIC AORTA: [...] the thoracic and lumbar spine.Bilateral hip arthroplasty Truck Farmer (topogram) images: No additional findings. DIVISION OF RADIOLOGY Provider, [facility] - 08/31/2024 * * *Final Report* * * DATE OF EXAM: Aug 31 2024 12:44PM [facility] 0133 - CTA C/A/P (GATED) W [...] AORTIC DIMENSIONS: AORTIC ROOT: 3.0 cm measured kvvtm-lr-ntxug STJ: 2.5 cm mid ASCENDING THORACIC AORTA: [...] and lumbar spine.Larry (more content not included)... [facility] Radiology Study observation (narrative) [facility] CTA Chest vessels and Abdomi nal vessels and Pelvis vessels W contrast IVOrdered By: Ccf Provider on 08-31-2024 [facility] Comprehensive metabolic 2000 panelon 08-31-2024 Albumin [Mass/Vol] 4.2 g/dL Normal 3.9-4.9 [facility] Comment on above: Order Comment: Speci men Type: BLOOD SPECIMEN [facility] Address: [address] [place] [address] Performed By: #### 2 4323-8, 91657-0 #### [facility] CLIA [id number] [address] [place] [address] [place] ALP [Catalytic activity/Vol] 66 U/L Normal 34-123 [facility] Comment on above: Order Comment: Speci men Type: BLOOD SPECIMEN [facility] Address: [address] [place] [address] Performed By: #### 2 4323-8, 07359-9 #### [facility] CLIA [id number] [address] [place] [address] [place] ALT [Catalytic activity/Vol] 12 U/L Normal 7-38 [facility] Comment on above: Order Comment: Speci men Type: BLOOD SPECIMEN [facility] Address: [address] [place] [address] Performed By: #### 2 4323-8, 10605-3 #### [facility] CLIA [id number] [address] [place] [address] [place] Anion gap [Moles/Vol] 10 mmol/L Normal 8-15 [facility] Comment on above: Order Comment: Speci men Type: BLOOD SPECIMEN [facility] Address: [address] [place] [address] Performed By: #### 2 4323-8, 84438-3 #### [facility] CLIA [id number] [address] [place] [address] [place] AST [Catalytic activity/Vol] 42 U/L High 13-35 [facility] Comment on above: Order Comment: Speci men Type: BLOOD SPECIMEN [facility] Address: [address] [place] [address] Performed By: #### 2 4323-8, 16321-9 #### [facility] CLIA [id number] [address] [place] [address] [place] Bilirubin [Mass/Vol] 0.3 mg/dL Normal 0.2-1.3 [facility] Comment on above: Order Comment: Speci men Type: BLOOD SPECIMEN [facility] Address: [address] [place] [address] Performed By: #### 2 4323-8, 54553-0 #### [facility] CLIA [id number] [address] [place] [address] [place] Calcium [Mass/Vol] 9.6 mg/dL Normal 8.5-10.2 [facility] Comment on above: Order Comment: Speci men Type: BLOOD SPECIMEN [facility] Address: [address] [place] [address] Performed By: #### 2 4323-8, 13804-6 #### [facility] CLIA [id number] [address] [place] [address] [place] Chloride [Moles/Vol] 106 mmol/L Normal 98-107 [facility] Comment on above: Order Comment: Speci men Type: BLOOD SPECIMEN [facility] Address: [address] [place] [address] Performed By: #### 2 4323-8, 10222-7 #### [facility] CLIA [id number] [address] [place] [address] [place] CO2 [Moles/Vol] 27 mmol/L Normal 22-30 [facility] Comment on above: Order Comment: Speci men Type: BLOOD SPECIMEN [facility] Address: [address] [place] [address] Performed By: #### 2 4323-8, 77888-6 #### [facility] CLIA [id number] [address] [place] [address] [place] Creatinine [Mass/Vol] 0.86 mg/dL Normal 0.58-0.96 [facility] Comment on above: Order Comment: Speci men Type: BLOOD SPECIMEN [facility] Address: [address] [place] [address] Performed By: #### 2 4323-8, 36723-2 #### [facility] CLIA [id number] [address] [place] [address] STATES [facility] Creatinine and Glomerular filtration rate.predicted panel (S/P/Bld) 66 mL/min/1.73m??? Normal >=60 [facility] Comment on above: Order Comment: Speci men Type: BLOOD SPECIMEN [facility] Address: [address] [place] [address] Result Comment: Leanne mated Glomerular Filtration Rate [...] actual GFR. Performed By: #### 2 4323-8, 18490-3 #### [facility] CLIA [id number] [address] [place] [address] [place] Glucose [Mass/Vol] 106 mg/dL High 74-99 [facility] Comment on above: Order Comment: Spechayden mittal Type: BLOOD SPECIMEN [facility] Address: [address] [place] [address] Result Comment: The [place] Diabetes Association (ADA) provides guidance for cutoff [...] Standards of Medical Care in Diabetes 2016, [place] [employer]. Diabetes Care. 2016.39(Suppl 1). Performed By: #### 2 4323-8, 84799-8 #### [facility] CLIA [id number] [address] [place] [address] [place] Potassium [Moles/Vol] 4.9 mmol/L Normal 3.7-5.1 [facility] Comment on above: Order Comment: Terri mittal Type: BLOOD SPECIMEN [facility] Address: [address] [place] [address] Performed By: #### 2 4323-8, 81307-5 #### [facility] CLIA [id number] [address] [place] [address] [place] Protein [Mass/Vol] 7.1 g/dL Normal 6.3-8.0 [facility] Comment on above: Order Comment: Terri mittal Type: BLOOD SPECIMEN [facility] Address: [address] [place] [address] Performed By: #### 2 4323-8, 95716-4 #### [facility] CLIA [id number] [address] [place] [address] [place] Sodium [Moles/Vol] 143 mmol/L Normal 136-144 [facility] Comment on above: Order Comment: Speci men Type: BLOOD SPECIMEN [facility] Address: [address] [place] [address] Performed By: #### 2 4323-8, 44465-1 #### [facility] CLIA [id number] [address] [place] [address] [place] Urea nitrogen [Mass/Vol] 21 mg/dL Normal 7-21 [facility] Comment on above: Order Comment: Speci men Type: BLOOD SPECIMEN [facility] Address: [address] [place] [address] Performed By: #### 2 4323-8, 95132-6 #### [facility] CLIA [id number] [address] [place] [address] [place] ECG COMPLETEon 08-31-2024 ECG COMPLETE Ventricular Rate : 6 1 BPM Atrial Rate : 61 BPM P-R Interval : 226 ms QRS Duration : 90 ms Q-T Interval : 416 ms QTC Calculation(Bazett) : 418 ms Calculated P [place] : 77 degrees Calculated R [place] : 23 degrees Calculated T [place] : 96 degrees SINUS RHYTHM WITH 1ST DEGREE AV BLOCK NONSPECIFIC T WAVE ABNORMALITY ABNORMAL ECG Confirmed by BETTY FELICIANO MD ([id number]) on 10/13/2024 11:40:01 PM NAME : GOGO WARE PID : [id number] : 1940 Gender : Female Race : ORD : [id number] Procedure Date : Aug 31 2024 10:44:52 Edit Date : Oct 13 2024 23:40:02 Diagnosis: SINUS RHYTHM WITH 1ST DEGREE AV BLOCK NONSPECIFIC T WAVE ABNORMALITY ABNORMAL ECG Confirmed by BETTY FELICIANO MD ([id number]) on 10/13/2024 11:40:01 PM Test Reason : Location : 314 : J14 J14 Overread By : BETTY FELICIANO MD Edited By : BETTY FELICIANO MD Referred By : KACY JIMENEZ Acquired by : KACY INGRAM [facility] ECHOon 08-31-2024 Echocardiography Echocardiography Rep ort: Transthoracic Echo [facility] J35 Date of service: 08/31/2024 3:15:51 PM AND WASHER Ordering physician: JAMES LINDO Indication: Aortic stenosis [...] * * Final * * * CC [employer] [facility] : [id number] (more content not included)... Normal [facility] HIGH SENSITIVITY TROPONIN To n 08-31-2024 Troponin T.cardiac High sensitivity method [Mass/Vol] 22 ng/L High <12 [facility] Comment on above: Order Comment: Speci men Type: BLOOD SPECIMEN [facility] Address: [address] [place] [address] Performed By: #### 2 4323-8, 65580-8 #### [facility] CLIA [id number] [address] [place] [address] [place] LIPID PANEL, NONFASTINGon Cholesterol [Mass/Vol] 155 mg/dL NINF - 200 mg/dL [facility] Comment on above: <200 mg/dL, Desirabl e 200-239 mg/dL, Borderline high >239 mg/dL, High HDL Cholesterol, Nonfasting 78 mg/dL 39 - PINF mg/dL [facility] Comment on above: 40-59 mg/dL, Accepta ble >59 mg/dL, High: Negative risk factor for coronary heart disease <40 mg/dL, Low: Positive risk factor for coronary heart disease Interpretation and review of laboratory results Normal [facility] LDL Cholesterol, Nonfasting 63 mg/dL NINF - 100 mg/dL [facility] Comment on above: <100 mg/dL, Optimal 100-129 mg/dL, Near optimal/above optimal 130-159 mg/dL, Borderline high 160-189 mg/dL, High >189 mg/dL, Very high Secondary prevention optimal LDL Cholesterol levels are recommended to be < 70 mg/dL LDL/HDL Ratio, Nonfasting 0.81 mg/dL NINF - 2.54 mg/dL [facility] Comment on above: Reference: 1. National Cholesterol Education Program ATP III Guideline At-A-Glance Quick Desk Reference: National Heart, Lung, and Blood [place]. National Institutes of Health. 2001: NIH Publication No. 01-3305. 2. An International Atherosclerosis Society position paper: global recommendations for the management of dyslipidemia: executive summary, Atherosclerosis. 2014: 232(2):410-413. Non HDL Cholesterol, Nonfasting 77 mg/dL NINF - 130 mg/dL [facility] Comment on above: <130 mg/dL, Optimal 130-159 mg/dL, Near optimal/above optimal 160-189 mg/dL, Borderline high 190-219 mg/dL, High >219 mg/dL, Very high Secondary prevention optimal non HDL Cholesterol levels are recommended to be <100 mg/dL Total Chol/HDL Ratio, Nonfasting 1.99 mg/dL NINF - 5.10 mg/dL [facility] Triglycerides, Nonfasting 68 mg/dL NINF - 150 mg/dL [facility] Comment on above: <150 mg/dL, Normal 150-199 mg/dL, Borderline high 200-499 mg/dL, High >499 mg/dL, Very high VLDL Cholesterol, Nonfasting 14 mg/dL NINF - 30 mg/dL [facility] Cholesterol [Mass/Vol] 155 mg/dL Normal <200 [facility] Comment on above: Order Comment: Speci men Type: BLOOD SPECIMEN [facility] Address: [address] [place] [address] Result Comment: <200 mg/dL, Desirable 200-239 mg/dL, Borderline high >239 mg/dL, High Performed By: #### 2 4323-8, 43448-6 #### [facility] CLIA [id number] [address] [place] [address] [place] HDL CHOLESTEROL, NF 78 mg/dL Normal >39 [facility] Comment on above: Order Comment: Speci men Type: BLOOD SPECIMEN [facility] Address: [address] [place] [address] Result Comment: 40-5 9 mg/dL, Acceptable >59 mg/dL, High: Negative risk factor for coronary heart disease <40 mg/dL, Low: Positive risk factor for coronary heart disease Performed By: #### 2 4323-8, 32660-8 #### [facility] CLIA [id number] [address] [place] [address] OF [facility] LDL CHOLESTEROL, NF 63 mg/dL Normal <100 [facility] Comment on above: Order Comment: Terri mittal Type: BLOOD SPECIMEN [facility] Address: [address] [place] [address] Result Comment: <100 mg/dL, Optimal 100-129 mg/dL, Near optimal/above optimal 130-159 mg/dL, Borderline high 160-189 mg/dL, High >189 mg/dL, Very high Secondary prevention optimal LDL Cholesterol levels are recommended to be < 70 mg/dL Performed By: #### 2 4323-8, 63694-8 #### [facility] CLIA [id number] [address] [place] [address] LDL/HDL RATIO, NF 0.81 mg/dL Normal <2.54 [facility] Comment on above: Order Comment: Terri mittal Type: BLOOD SPECIMEN [facility] Address: [address] [place] [address] Result Comment: Refe rence: 1. National Cholesterol Education Program ATP III Guideline At-A-Glance Quick Desk Reference: National Heart, Lung, and Blood [place]. National Institutes of Health. 2001: NIH Publication No. 01-3305. 2. An International Atherosclerosis Society position paper: global recommendations for the management of dyslipidemia: executive summary, Atherosclerosis. 2014: 232(2):410-413. Performed By: #### 2 4323-8, 71316-6 #### [facility] CLIA [id number] [address] [place] [address] [place] NON HDL CHOL, NF 77 mg/dL Normal <130 [facility] Comment on above: Order Comment: Speci men Type: BLOOD SPECIMEN [facility] Address: [address] [place] [address] Result Comment: <130 mg/dL, Optimal 130-159 mg/dL, Near optimal/above optimal 160-189 mg/dL, Borderline high 190-219 mg/dL, High >219 mg/dL, Very high Secondary prevention optimal non HDL Cholesterol levels are recommended to be <100 mg/dL Performed By: #### 2 4323-8, 59264-5 #### [facility] CLIA [id number] [address] [place] [address] [place] T CHOL/HDL RATIO NF 1.99 mg/dL Normal <5.10 [facility] Comment on above: Order Comment: Speci men Type: BLOOD SPECIMEN [facility] Address: [address] [place] [address] Performed By: #### 2 4323-8, 13765-2 #### [facility] CLIA [id number] [address] [place] [address] [place] TRIGLYCERIDES, NF 68 mg/dL Normal <150 [facility] Comment on above: Order Comment: Rahuli men Type: BLOOD SPECIMEN [facility] Address: [address] [place] [address] Result Comment: <150 mg/dL, Normal 150-199 mg/dL, Borderline high 200-499 mg/dL, High >499 mg/dL, Very high Performed By: #### 2 4323-8, 52265-8 #### [facility] CLIA [id number] [address] [place] [address] [place] VLDL CHOLESTEROL, NF 14 mg/dL Normal <30 [facility] Comment on above: Order Comment: Speci men Type: BLOOD SPECIMEN [facility] Address: [address] [place] [address] Performed By: #### 2 4323-8, 35839-2 #### [facility] CLIA [id number] [address] [place] LPa SerPl-mCncon 08-31-2024 Lipoprotein a [Mass/Vol] 10 mg/dL Normal <30 [facility] Comment on above: Order Comment: Speci men Type: BLOOD SPECIMEN [facility] Address: [address] [place] [address] Performed By: #### 2 4323-8, 48243-8 #### [facility] CLIA [id number] [address] [place] [address] [place] NT-proBNP SerPl-mCncon 08-31 Natriuretic peptide.B prohormone N-Terminal [Mass/Vol] 1668 pg/mL High <450 [facility] Comment on above: Order Comment: Speci men Type: ARTERIAL BLOOD SPECIMEN Ordering Facility: [facility] Address: [address] [place] [address] Performed By: #### A LLBG #### [facility] CLIA [id number] [address] [place] [address] [place] US CAROTID ARTERIES [facility] 08-31-2024 US CAROTID [facility]ERIES [facility] Non-Invasive Vascular Laboratory [facility] J35 Carotid Duplex Bilateral/Complete Date of service/time: [...] physician: Medina Patel MD, RPVI Final CC Nexus D[facility] Medical Image : [id number] See Link below for Image Normal [facility] XR CHEST 2V FRONTAL/LATon XR CHEST [...] visualized on this radiograph. Lower lung atelectasis. Feed Crusher: PSCB Transcribe Date/Time: Aug 31 2024 3:37P Dictated by : ELOISA JIMENEZ MD This examination was interpreted and the report reviewed and electronically signed by: WOOD DAMON MD on Aug 31 2024 5:31PM EST [id number] Normal [facility] XR Chest PA and Lateralon IMPRESSION: Anterior mediastinal cystic mass seen on same day CT not well visualized on this radiograph. Lower lung atelectasis. Feed Crusher: PSCHien Transcribe Date/Time: Aug 31 2024 3:37P Dictated [...] the thoracic spine. DIVISION OF RADIOLOGY Provider, [facility] - 08/31/2024 * * *Final Report* * [...] visualized on this radiograph. Lower lung atelectasis. Feed Crusher: PSCB Transcribe Date/Time: Aug 31 2024 3:37P Dictated by : ELOISA JIMENEZ MD This examination was interpreted and the report reviewed and electronically signed by: WOOD DAMON MD on Aug 31 2024 5:31PM EST [facility] Radiology Study observation (narrative) [facility] XR Chest PA and LateralOrder ed By: Ccf Provider on 08-31-2024 [facility] CNPNon 05-22-2024 CNPN Telephone (CARIMN) GOGO WARE ([id number]) 1940 F Date Time Provider Department 05/22/24 [...] Allergies) Date Reviewed: 04/28/2024 Reviewed by: Zunilda Cardenas RN - Fully Assessed Primary Visit Diagnosis:Non-rheumatic aortic stenosis [I35.0] Order(s):CONSULT TO TAVR/TMVR [[id number]] Order #: [id number]: 1 Prescriptions as of 05/22/2024 - valsartan [...] hypertension [I10] 09/09/2017 Coronary artery disease involving [place] guo*04/07/2024 Insomnia [G47.00] 04/07/2024 Glaucoma [H40.9] 04/07/2024 Severe aortic stenosis by prior echocardiogram *04/07/2024 Encounter Status:Closed by JAMES LINDO on 05/22/24 [facility] CNOVon 04-28-2024 CNOV Office Visit (LUANNE ) GOGO WARE ([id number]) 1940 F Date Time Provider Department 04/28/24 1:45 PM JAMES LINDO During your visit today, we recorded the following information about you: Pulse Blood pressure Weight Height 58/minute 137/66 73.9 kg 1.651 m James Lindo MD 04/28/2024 3:32 PM [facility] [place] Pam López Department of Cardiovascular Medicine SECTION OF CARDIOVASCULAR IMAGING OUTPATIENT VISIT DATE April 28, 2024 OUTPATIENT VISIT TYPE CONSULTATION PRIMARY CARE PHYSICIAN: To use this Smartlink, specify the provider ID whose address you want to display, e.g., .PROVADDR[1 (where 1 is the provider ID). REFERRING PHYSICIAN Berta Rankin [address] [address] CHIEF COMPLAINT: Aortic stenosis HISTORY OF PRESENT ILLNESS/ NURSING INTAKE: Cardiac consultation at the request of Dr. Berta Rich. A copy of this consultation note will be provided to the requesting physician by way of shared Medical record or letter to requesting physician via US mail. Ms. Ware is a 84 year old female from [place], [place] here today for cardiovascular evaluation related [...] Pulse (!) (more content not included)... Normal [facility] [id number] 04-28-2024 ECG01 Ventricular Rate : 6 4 BPM Atrial Rate : 64 BPM P-R Interval : 212 ms QRS Duration : 92 ms Q-T Interval : 408 ms QTC Calculation(Bazett) : 420 ms Calculated P [place] : 76 degrees Calculated R [place] : 17 degrees Calculated T [place] : 69 degrees SINUS RHYTHM WITH 1ST DEGREE AV BLOCK OTHERWISE NORMAL ECG Confirmed by MD PENNY, PhD, JOSUÉ ([id number]) on 05/08/2024 5:57:26 AM NAME : GOGO WARE PID : [id number] : 1940 Gender : Female Race : ORD : Procedure Date : Apr 28 2024 13:41:47 Edit Date : May 08 2024 05:57:29 Diagnosis: SINUS RHYTHM WITH 1ST DEGREE AV BLOCK OTHERWISE NORMAL ECG Confirmed by MD PENNY, PhD, JOSUÉ ([id number]) on 05/08/2024 5:57:26 AM Test Reason : Location : 314 : [facility] Overread By : MD PENNY, PhD,JOSUÉ Edited By : MD PENNY, PhD,JOSUÉ Referred By : JAMES LINDO Acquired by : ROSEMARIE BARNEY [facility] NT-proBNP [facility] 04-28 Natriuretic peptide.B prohormone N-Terminal [Mass/Vol] 1572 pg/mL High <450 [facility] Comment on above: Order Comment: Speci men Type: ARTERIAL BLOOD SPECIMEN Ordering Facility: [facility] Address: [address] [place] [address] Performed By: #### A LLBG #### [facility] CLIA [id number] [address] [place] [address] STATES OF [facility] 04-23-2024 CNPN Telephone (IMOPMN) GOGO WARE ([id number]) 1940 F Date Time Provider Department 04/23/24 AZUL MADRIGAL During your visit today, we recorded the following information about you: Azul Madrigal APRN.DATA LIBRARIAN 04/23/2024 2:46 PM Signed I called the patient to discuss her upcoming appointments with the finish filer to evaluate for possible TAVR. The patient [...] the appointments. Also of note, Dr Lindo's administrative specialist left a message for Kenisha to call her to go over the appointments and to assist her with the directions. Azul Madrigal APRN-DATA LIBRARIAN Allergies As of Date: 04/23/2024 (No Known Allergies) Date Reviewed: 04/21/2024 Reviewed by: Kacy Pathak COA - Fully Assessed Reason for Visit: Appointment [186] Cmt: Book Agent appt 04/28/2024 Prescriptions as of 04/23/2024 - [...] hypertension [I10] 09/09/2017 Coronary artery disease involving [place] guo*04/07/2024 Insomnia [G47.00] 04/07/2024 Glaucoma [H40.9] 04/07/2024 Severe aortic stenosis by prior echocardiogram *04/07/2024 Encounter Status:Closed by AZUL MADRIGAL on [facility]/23/24 [facility] GOGO WARE ([id number]) 1940 F Date Time Provider Department 04/23/24 [...] hypertension [I10] 09/09/2017 Coronary artery disease involving [place] guo*04/07/2024 Insomnia [G47.00] 04/07/2024 Glaucoma [H40.9] 04/07/2024 Severe aortic stenosis by prior echocardiogram *04/07/2024 Encounter Status:Closed by VITOR TOTH on 04/23/24 [facility] GO[facility] ([id number]) 1940 F Date Time Provider Department 04/21/24 AZUL MADRIGAL LATRICENH During your visit today, we recorded the following information about you: Azul Madrigal APRN.DATA LIBRARIAN 04/21/2024 9:02 AM Signed Called [facility] to schedule consult [...] me to reschedule if needed. Azul Madrigal APRN-DATA LIBRARIAN Allergies As of Date: 04/21/2024 (No Known Allergies) Date Reviewed: 04/20/2024 Reviewed by: Chinyere Lo RN - Fully Assessed Reason for Visit: Appointment [186] Cmt: Cardiology scheduling to discuss TAVR TAVR [Other] Primary Visit Diagnosis:Aortic valve stenosis, etiology of cardiac valve disease unspecified [I35.0] Order(s):CONSULT TO INTERVENTIONAL CARDIOLOGY [[id number]] Order #: [id number]: 1 FUTURE Prescriptions as of 04/21/2024 - [...] hypertension [I10] 09/09/2017 Coronary artery disease involving [place]*04/07/2024 Insomnia [G47.00] 04/07/2024 Glaucoma [H40.9] 04/07/2024 Severe aortic stenosis by prior echocardiogram *04/07/2024 Encounter Status:Closed by AZUL MADRIGAL on 04/21/24 [facility] ANES POSTPROC EVALon 024 ANES POSTPROC EVAL HNO ID: [id number] Author: THERESE RUELAS MD Service: ? Author Type: Anesthesiologist Type: Anesthesia Postprocedure Evaluation Filed: 04/20/2024 14:54 Note Text: POST ANESTHESIA EVALUATION NOTE : 1940 Procedure Summary Date: 04/20/24 Room / Location: [address] Anesthesia Start: 0845 Anesthesia Stop: 1021 Procedure: PHACOEMULSIFICATION CATARACT IMPLANT [...] April 20, 2024 TIME: 2:54 PM CSN: [id number] Normal [facility] ANES PRE-OPon 04-20-2024 ANES PRE-OP HNO ID: [id number] Author: THERESE RUELAS MD Service: ? Author Type: Anesthesiologist Type: Anesthesia Preprocedure Evaluation Filed: 04/20/2024 08:27 Note Text: ANESTHESIOLOGY DAY OF SURGERY NOTE : 1940 Procedure Information Date/Time: 04/20/24834 Procedure: PHACOEMULSIFICATION CATARACT IMPLANT INTRAOCULAR LENS W/O ENDOSCOPIC CYCLOPHOTOCOAGULATION (Left: Eye) Location: [place] [address] / [facility] Surgeons: Wali Triana MD Estimated body mass index is 27.96 kg/m? as calculated from the following: Height as of 04/06/24: 165.1 cm (5' 5"). Weight as of 04/06/24: 76.2 kg (168 lb). Most recent hematocrit and potassium results: Hematocrit 42.1 07/14/2018 Potassium 4.3 03/24/2019 Relevant Problems CARDIO (+) Coronary artery disease involving [place] coronary artery of [place] heart with angina pectoris (HCC) (+) Essential [...] and consent discussed: yes. Patient / Responsible Libertarian agrees to proceed: yes Patient / Surrogate [...] 0759 Temp 36.1 ?C (97 ?F) 04/20/24 0759 SpO2 99 % 04/20/24 0759 Facility-Administered Medications as of 04/20/2024 Medication Dose [...] April 20, 2024 TIME: 8:06 AM CSN: [id number] [facility] OPERATIVE NOon 04-20-2024 OPERATIVE NO HNO ID: [id number] Author: WALI TRIANA MD Service: Ophthalmology Author Type: Physician Type: Operative Report Filed: 04/20/2024 10:46 Note Text: Log ID: [id number] NAME: Gogo Ware SURGERY START TIME: 9:00 AM SURGERY END TIME: 9:14 AM SURGERY/PROCEDURE DATE: 04/20/2024 SURGEON(S)/BEATER LEAD(S): Surgeon(s) and Role: * Wali Triana MD - Primary * Chandra More MD - Resident - Assisting PROCEDURE: Cataract Extraction by Phacoemulsification with Posterior Chamber Intraocular Lens Implantation of the left eye IMPLANTS: Implant Name Type Inv. Item Serial No. Income Tax Administrator Lot No. LRB No. Used Action Model No. [id number] [employer] - [id number] Intraocular Lens [id number].235 [employer] [id number] [employer] Left 1 Implanted [id number].[id number] [...] bag. The machine was then set on mauritian mode and the IA handpiece was used [...] has an appointment to follow-up at the [facility] [place] tomorrow. I/primary surgeon/proceduralist performed the entire procedure. I have reviewed the images and report from the Ophthalmic Biometry 04/20/2024 to determine the Intraocular lens Power Calculation for the IOL lens implant. I have interpreted and agree with the calculation of the IOL as listed below. Signed, Wali Trinaa MD [facility] 04-16-2024 [facility]IM[facility] GOGO WARE ([id number]) 1940 F Date Time Provider Department 04/16/24 BERTA RICH [facility] During your visit today, we recorded the following information about you: Berta Rich PA-C 04/16/2024 2:58 PM Signed Referral sent to severe aortic stenosis. Pt would like to proceed with TAVR. 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] Primary Visit Diagnosis:Aortic valve stenosis, etiology of cardiac valve disease unspecified [I35.0] Order(s):CONSULT TO CARDIOLOGY [9004] Order #: [id number]: 1 FUTURE Prescriptions as of 04/16/2024 - [...] hypertension [I10] 09/09/2017 Coronary artery disease involving [place] guo*04/07/2024 Insomnia [G47.00] 04/07/2024 Glaucoma [H40.9] 04/07/2024 Severe aortic stenosis by prior echocardiogram *04/07/2024 Encounter Status:Closed by BERTA RICH I on 04/16/24 Normal [facility] ECHOon 04-15-2024 Echocardiography Echocardiography Rep ort: Transthoracic Echo [facility] Date of service: 04/15/2024 11:23:27 AM AND WASHER Ordering physician: AZUL MADRIGAL Indication: Initial evaluation valvular heart disease Technologist: Josephine Whitney [facility] Interpreting physician: Mavis Judge MD PATIENT: Name: [...] * * Final * * * CC Nexus Dx Medical Image : [id number] Normal [facility] 04-13-2024 CNPN Telephone (IMOPMN) GOGO WARE ([id number]) 1940 F Date Time Provider Department 04/13/24 BERTA RICH [facility] During your visit today, we recorded the following information about you: Berta Rich PA-C 04/13/2024 8:17 AM Signed Called pt, and gave instructions and directions for echo on 04/15/24. 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 [0342] Prescriptions as of 04/13/2024 - moxifloxacin (VIGAMOX) [...] hypertension [I10] 09/09/2017 Coronary artery disease involving [place] guo*04/07/2024 Insomnia [G47.00] 04/07/2024 Glaucoma [H40.9] 04/07/2024 Severe aortic stenosis by prior echocardiogram *04/07/2024 Encounter Status:Closed by BERTA RICH I on 04/13/24 [facility] CNPN Telephone (OPHN) GOGO WARE ([id number]) 1940 F Date Time Provider Department 04/06/24 [facility] During your visit today, we recorded the [...] Date Reviewed: 04/06/2024 Reviewed by: Dorothy Han APRN.DATA LIBRARIAN - Fully Assessed Reason for Visit: Patient Question [8777] Order(s):moxifloxacin (VIGAMOX) 0.5 % ophthalmic solutionUse 1 [...] both eye (more content not included)... Normal [facility] GARETT Telephone (KBO) GOGO WARE ([id number]) 1940 F Date Time Provider Department 04/06/24 DOROTHY HAN During your visit today, we recorded the following information about you: Dorothy Han APRN.CNP 04/06/2024 1:57 PM Signed Please request last cardiac OV and testing from [facility]. DOS 04/20/2024. Amrita Perea LPN 04/06/2024 2:17 PM Signed Fax request sent to [facility] requesting last office visit and cardiac testing for upcoming surgery 04/20/24. .GISELE Nation Jessica, LPN 04/06/2024 3:08 PM Signed Received last office visit and cardiac testing. Original sent to [facility] through Onbase scanning. Amrita Perea LPN Allergies As of Date: 04/06/2024 (No Known Allergies) Date Reviewed: 04/06/2024 Reviewed by: Dorothy Han APRN.CNP - Fully Assessed Reason for Visit: Request Outside Medical Records [3064] Prescriptions as of 04/06/2024 - carvedilol (COREG) [...] Status:Closed by AMRITA PEREA on 04/06/24 Normal [facility] HISTORY PHYSICALon HISTORY PHYSICAL HNO ID: [id number] Author: DOROTHY HAN APRN.DATA LIBRARIAN Service: ? Author Type: Nurse Practitioner Type: [...] Eliana Whipple PA-C Coronary artery disease involving [place] coronary artery of [place] heart with angina pectoris (HCC) Assessment: moderate [...] large neck Non-male patient STOP-Bang Score: 2 [id number] Score: Age: >=75 Sex: female CHF history: No Hypertension history: Yes Stroke/TIA/thromboembolism history: No Vascular disease history: Yes Diabetes history: No [id number] Score: 5 ARISCAT Score: Age: >80 Preoperative [...] and consent discussed: yes. Patient / Responsible Libertarian agrees to proceed: yes Patient / Surrogate [...] Essential (Primary) Hypertension Coronary Artery Disease Involving [place] Coronary Artery of [place] Heart With Angina Pectoris (Hcc) Insomnia Glaucoma Severe Aortic Stenosis By Prior Echocardiogram COVID-19 Immunization Statu (more content not included)... Normal [facility] Absolute lymphocyte countOrd ered By: Eh Huddleston on 09-30-2023 Lymphocytes Auto (Unsp spec) [#/Vol] 1.61 10*3/uL 0.83-4.51 [facility] Basophil percentageOrdered B y: Eh Huddleston on 09-30-2023 Basophils/100 WBC (Bld) 0.4 % 0-1 [facility] Bilirubin [Mass/Vol] 0.60 mg/dL 0.20-1.00 [facility] Comment on above: For patients on eltr ombopag therapy, use of Dimension [place] TBIL is not recommended. Chloride [Moles/Vol] 107 mmol/L 98-107 [facility] Cholesterol [Mass/Vol] 164 mg/dL <200 [facility] Comment on above: <200 mg/dL Desirable 200-240 mg/dL Borderline >240 mg/dL High Risk Eosinophils/100 WBC (Bld) 0.8 % 0-5 [facility] Glucose [Mass/Vol] 117 mg/dL 74-106 [facility] Comment on above: Fasting Glucose resu lt from 100 to 125 mg/dL suggests IMPAIRED HOMEOSTASIS per A.D.A. criteria. Neutrophils (Bld) [#/Vol] 5.3 10*3/uL 2.0-7.7 [facility] Neutrophils/100 WBC (Bld) 70.5 % 47-70 [facility] Potassium [Moles/Vol] 4.0 mmol/L 3.5-5.1 [facility] Protein [Mass/Vol] 7.7 g/dL 6.4-8.2 [facility] Sodium [Moles/Vol] 139 mmol/L 136-145 [facility] Triglyceride [Mass/Vol] 123 mg/dL <199 [facility] Comment on above: The drugs N-Acetylcy steine and Metamizole may falsely depress this assay.Serum Triglycerides Reference Interval Normal <150 mg/dL Borderline high 150 - 199 mg/dL High 200 - 499 mg/dL Very High > or = 500 mg/dL WBC (Bld) [#/Vol] 7.5 10*3/uL 4.4-11.0 [facility] Blood erythrocytes count (nu mber/volume)Ordered By: Eh Huddleston on 09-30-2023 RBC (Bld) [#/Vol] 4.26 10*6/uL 4.2-5.4 [facility] Blood hemoglobin measurement (mass/volume)Ordered By: Eh Huddleston on 09-30-2023 Hemoglobin (Bld) [Mass/Vol] 13.1 g/dL 12.0-15.0 [facility] Blood lymphocytes/100 leukoc ytesOrdered By: Eh Huddleston on 09-30-2023 Lymphocytes/100 WBC (Bld) 21.6 % 19-41 [facility] Blood monocytes/100 leukocyt esOrdered By: Eh Huddleston on 09-30-2023 Monocytes/100 WBC (Bld) 6.4 % 0-10 [facility] Blood platelet mean volumeOr dered By: Eh Huddleston on 09-30-2023 Platelet mean volume (Bld) [Entitic vol] 11.2 fL 6.2-12.0 [facility] Determination of erythrocyte mean corpuscular volume (MCV)Ordered By: Eh Huddleston on 09-30-2023 MCV (RBC) [Entitic vol] 94.4 fL 81-99 [facility] Hematocrit Auto (Bld) [Volum e fraction]Ordered By: Eh Huddleston on 09-30-2023 Hematocrit (Bld) [Volume fraction] 40.2 % 37-47 [facility] Laboratory - Chemistry and C hemistry - challengeOrdered By: Eh Huddleston on 09-30-2023 ALP [Catalytic activity/Vol] 71 U/L 45-117 [facility] ALT [Catalytic activity/Vol] 22 U/L 13-56 [facility] CO2 [Moles/Vol] 25.0 mmol/L 21.0-32.0 [facility] Globulin (S) [Mass/Vol] 3.8 g/dL 2.2-4.2 [facility] Urea nitrogen/Creatinine [Mass ratio] 19.1 mg/mg 10-20 [facility] Laboratory - Hematology and Cell countsOrdered By: Eh Huddleston on 09-30-2023 Erythrocyte distribution width (RBC) [Entitic vol] 44.5 fL 35.1-43.9 [facility] Erythrocyte distribution width (RBC) [Ratio] 12.8 % 11.6-14.6 [facility] Immature granulocytes/100 WBC (Bld) 0.300 % 0.0-0.9 [facility] Comment on above: IG% - Immature Granu locytes (promyelocytes, myelocytes and metamyelocytes) > 1% indicates that a LEFT SHIFT is Present. MCH (RBC) [Entitic mass] 30.8 pg 27.0-32.0 [facility] Nucleated RBC/100 WBC (Bld) [Ratio] 0 % 0-5 [facility] MCHC Auto (RBC) [Mass/Vol]Or dered By: Eh Huddleston on 09-30-2023 MCHC (RBC) [Mass/Vol] 32.6 g/dL 32-36 [facility] No Panel InformationOrdered By: Eh Huddleston on 09-30-2023 Estimated GFR (MDRD) Amer 77 mL/min >60 [facility] Comment on above: GFR Calc Estimated GFR (MDRD) Non-Af Amer 64 mL/min >60 [facility] Comment on above: Non- GFR Calc Thyroid Stimulating Hormone (TSH) 1.37 uIU/mL 0.358-3.74 [facility] Vitamin D 25-Hydroxy 25.4 ng/mL [facility] Comment on above: Vitamin D 25(OH) Sta tus Range Deficiency <20 ng/mL (50nmol/L) Insufficiency 20 - 30 ng/mL (50 - 75 nmol/L) Sufficiency 30 - 100 ng/mL (75 - 250 nmol/L) Toxicity >100 ng/mL (>250 nmol/L) Platelets bldOrdered By: Eh Huddleston on 09-30-2023 Platelets (Bld) [#/Vol] 188 10*3/uL 150-450 [facility] Serum or plasma albumin susy urement (mass/volume)Ordered By: Eh Huddleston on 09-30-2023 Albumin [Mass/Vol] 3.9 g/dL 3.2-5.0 [facility] Serum or plasma albumin/glob ulin mass ratioOrdered By: Eh Huddleston 09-30-2023 Albumin/Globulin [Mass ratio] 1.0 {ratio} 0.9-2.4 [facility] Serum or plasma calcium susy urement (mass/volume)Ordered By: Eh Huddleston 09-30-2023 Calcium [Mass/Vol] 9.3 mg/dL 8.5-10.1 [facility] Serum or plasma cholesterol in HDL measurement (mass/volume)Ordered By: Eh Huddleston 09-30-2023 Cholesterol in HDL [Mass/Vol] 84 mg/dL >40 [facility] Comment on above: The drugs N-Acetylcy steine and Metamizole may falsely depress this assay. Reference Range HDL <40 mg/dL Low HDL Cholesterol HDL >or= 60 mg/dL High HDL Cholesterol Serum or plasma cholesterol in VLDL measurement (mass/volume)Ordered By: Eh Huddleston 09-30-2023 Cholesterol in VLDL [Mass/Vol] 25 mg/dL 5-40 [facility] Serum or plasma creatinine m easurement (mass/volume)Ordered By: Eh Huddleston 09-30-2023 Creatinine [Mass/Vol] 0.89 mg/dL 0.55-1.02 [facility] Comment on above: The validity of the calculated GFR & GFRAA in patients over 70 years has not been determined. Clinical correlation is essential. Serum or plasma low density lipoprotein (LDL) cholesterol measurement (mass/volume)Ordered By: Eh Huddleston 09-30-2023 Cholesterol in LDL [Mass/Vol] 55 mg/dL 0-130 [facility] Serum or plasma urea nitroge n measurement (mass/volume)Ordered By: Eh Huddleston on 09-30-2023 Urea nitrogen [Mass/Vol] 17 mg/dL 7-18 [facility] Thin prep Papanicolaou smear with manual screeningOrdered By: Eh Huddleston on 09-30-2023 Thin prep Papanicolaou smear with manual screening 48 U/L 15-37 [facility] Thin prep Papanicolaou smear with manual screening 7 5-15 [facility] Absolute lymphocyte countOrd ered By: Dr. Huddleston on 03-28-2023 Lymphocytes Auto (Unsp spec) [#/Vol] 1.68 10*3/uL 0.83-4.51 [facility] Basophil percentageOrdered B y: Dr. Huddleston on 03-28-2023 Basophils/100 WBC (Bld) 0.4 % 0-1 [facility] Bilirubin [Mass/Vol] 0.40 mg/dL 0.20-1.00 [facility] Comment on above: For patients on eltr ombopag therapy, use of Dimension [place] TBIL is not recommended. Chloride [Moles/Vol] 110 mmol/L 98-107 [facility] Cholesterol [Mass/Vol] 146 mg/dL <200 [facility] Comment on above: <200 mg/dL Desirable 200-240 mg/dL Borderline >240 mg/dL High Risk Eosinophils/100 WBC (Bld) 2.1 % 0-5 [facility] Glucose [Mass/Vol] 104 mg/dL 74-106 [facility] Comment on above: Fasting Glucose resu lt from 100 to 125 mg/dL suggests IMPAIRED HOMEOSTASIS per A.D.A. criteria. Neutrophils (Bld) [#/Vol] 2.9 10*3/uL 2.0-7.7 [facility] [facility] Neutrophils/100 WBC (Bld) 55.5 % 47-70 [facility] Potassium [Moles/Vol] 4.3 mmol/L 3.5-5.1 [facility] Protein [Mass/Vol] 7.6 g/dL 6.4-8.2 [facility] Sodium [Moles/Vol] 141 mmol/L 136-145 [facility] Triglyceride [Mass/Vol] 112 mg/dL <199 [facility] Comment on above: The drugs N-Acetylcy steine and Metamizole may falsely depress this assay.Serum Triglycerides Reference Interval Normal <150 mg/dL Borderline high 150 - 199 mg/dL High 200 - 499 mg/dL Very High > or = 500 mg/dL WBC (Bld) [#/Vol] 5.2 10*3/uL 4.4-11.0 [facility] Blood erythrocytes count (nu mber/volume)Ordered By: Dr. Huddleston on 03-28-2023 RBC (Bld) [#/Vol] 3.83 10*6/uL 4.2-5.4 [facility] Blood hemoglobin measurement (mass/volume)Ordered By: Dr. Huddleston on 03-28-2023 Hemoglobin (Bld) [Mass/Vol] 11.9 g/dL 12.0-15.0 [facility] Blood lymphocytes/100 leukoc ytesOrdered By: Dr. Huddleston on 03-28-2023 Lymphocytes/100 WBC (Bld) 32.2 % 19-41 [facility] Blood monocytes/100 leukocyt esOrdered By: Dr. Huddleston on 03-28-2023 Monocytes/100 WBC (Bld) 9.4 % 0-10 [facility] Blood platelet mean volumeOr dered By: Dr. Huddleston on 03-28-2023 Platelet mean volume (Bld) [Entitic vol] 10.7 fL 6.2-12.0 [facility] Determination of erythrocyte mean corpuscular volume (MCV)Ordered By: Dr. Huddleston on 03-28-2023 MCV (RBC) [Entitic vol] 93.7 fL 81-99 [facility] Hematocrit Auto (Bld) [Volum e fraction]Ordered By: Dr. Huddleston on 03-28-2023 Hematocrit (Bld) [Volume fraction] 35.9 % 37-47 [facility] Laboratory - Chemistry and C hemistry - challengeOrdered By: Dr. Huddleston on 03-28-2023 ALP [Catalytic activity/Vol] 72 U/L 45-117 [facility] ALT [Catalytic activity/Vol] 21 U/L 13-56 [facility] CO2 [Moles/Vol] 25.0 mmol/L 21.0-32.0 [facility] Globulin (S) [Mass/Vol] 3.8 g/dL 2.2-4.2 [facility] Urea nitrogen/Creatinine [Mass ratio] 26.8 mg/mg 10-20 [facility] Laboratory - Hematology and Cell countsOrdered By: Dr. Huddleston on 03-28-2023 Erythrocyte distribution width (RBC) [Entitic vol] 46.4 fL 35.1-43.9 [facility] Erythrocyte distribution width (RBC) [Ratio] 13.5 % 11.6-14.6 [facility] Immature granulocytes/100 WBC (Bld) 0.400 % 0.0-0.9 [facility] Comment on above: IG% - Immature Granu locytes (promyelocytes, myelocytes and metamyelocytes) > 1% indicates that a LEFT SHIFT is Present. MCH (RBC) [Entitic mass] 31.1 pg 27.0-32.0 [facility] Nucleated RBC/100 WBC (Bld) [Ratio] 0 % 0-5 [facility] MCHC Auto (RBC) [Mass/Vol]Or dered By: Dr. Huddleston on 03-28-2023 MCHC (RBC) [Mass/Vol] 33.1 g/dL 32-36 [facility] No Panel InformationOrdered By: Dr. Huddleston on 03-28-2023 Estimated GFR (MDRD) Amer 81 mL/min >60 [facility] Comment on above: GFR Calc Estimated GFR (MDRD) Non-Af Amer 67 mL/min >60 [facility] Comment on above: Non- GFR Calc Thyroid Stimulating Hormone (TSH) 1.60 uIU/mL 0.358-3.74 [facility] Vitamin D 25-Hydroxy 32.1 ng/mL [facility] Comment on above: Vitamin D 25(OH) Sta tus Range Deficiency <20 ng/mL (50nmol/L) Insufficiency 20 - 30 ng/mL (50 - 75 nmol/L) Sufficiency 30 - 100 ng/mL (75 - 250 nmol/L) Toxicity >100 ng/mL (>250 nmol/L) Platelets bldOrdered By: Dr. Huddleston on 03-28-2023 Platelets (Bld) [#/Vol] 182 10*3/uL 150-450 [facility] Serum or plasma albumin susy urement (mass/volume)Ordered By: Dr. Huddleston on 03-28-2023 Albumin [Mass/Vol] 3.8 g/dL 3.2-5.0 [facility] Serum or plasma albumin/glob ulin mass ratioOrdered By: Dr. Huddleston on 03-28-2023 Albumin/Globulin [Mass ratio] 1.0 {ratio} 0.9-2.4 [facility] Serum or plasma calcium susy urement (mass/volume)Ordered By: Dr. Huddleston on 03-28-2023 Calcium [Mass/Vol] 9.1 mg/dL 8.5-10.1 [facility] Serum or plasma cholesterol in HDL measurement (mass/volume)Ordered By: Dr. Huddleston on 03-28-2023 Cholesterol in HDL [Mass/Vol] 85 mg/dL >40 [facility] Comment on above: The drugs N-Acetylcy steine and Metamizole may falsely depress this assay. Reference Range HDL <40 mg/dL Low HDL Cholesterol HDL >or= 60 mg/dL High HDL Cholesterol Serum or plasma cholesterol in VLDL measurement (mass/volume)Ordered By: Dr. Huddleston on 03-28-2023 Cholesterol in VLDL [Mass/Vol] 22 mg/dL 5-40 [facility] Serum or plasma creatinine m easurement (mass/volume)Ordered By: Dr. Huddleston on 03-28-2023 Creatinine [Mass/Vol] 0.86 mg/dL 0.55-1.02 [facility] Comment on above: The validity of the calculated GFR & GFRAA in patients over 70 years has not been determined. Clinical correlation is essential. Serum or plasma low density lipoprotein (LDL) cholesterol measurement (mass/volume)Ordered By: Dr. Huddleston on 03-28-2023 Cholesterol in LDL [Mass/Vol] 39 mg/dL 0-130 [facility] Serum or plasma urea nitroge n measurement (mass/volume)Ordered By: Dr. Huddleston on 03-28-2023 Urea nitrogen [Mass/Vol] 23 mg/dL 7-18 [facility] Thin prep Papanicolaou smear with manual screeningOrdered By: Dr. Huddleston on 03-28-2023 Thin prep Papanicolaou smear with manual screening 54 U/L 15-37 [facility] Thin prep Papanicolaou smear with manual screening 6 5-15 [facility] Absolute lymphocyte counton 09-25-2022 Lymphocytes Auto (Unsp spec) [#/Vol] 1.83 10*3/uL 0.83-4.51 [facility] Work Phone: [phone] Basophil percentageon 2021 Basophils/100 WBC (Bld) 0.5 % 0-1 [facility] Work Phone: Bilirubin [Mass/Vol] 0.50 mg/dL 0.20-1.00 [facility] Work Phone: Comment on above: For patients on eltr ombopag therapy, use of Dimension [place] TBIL is not recommended. Chloride [Moles/Vol] 104 mmol/L 98-107 [facility] Work Phone: Cholesterol [Mass/Vol] 163 mg/dL <200 [facility] Work Phone: Comment on above: <200 mg/dL Desirable 200-240 mg/dL Borderline >240 mg/dL High Risk Eosinophils/100 WBC (Bld) 4.1 % 0-5 [facility] Work Phone: Glucose [Mass/Vol] 94 mg/dL 74-106 [facility] Work Phone: Neutrophils (Bld) [#/Vol] 3.2 10*3/uL 2.0-7.7 [facility] Work Phone: Neutrophils/100 WBC (Bld) 55.7 % 47-70 [facility] Work Phone: Potassium [Moles/Vol] 3.9 mmol/L 3.5-5.1 [facility] Work Phone: Protein [Mass/Vol] 7.2 g/dL 6.4-8.2 [facility] Work Phone: Sodium [Moles/Vol] 139 mmol/L 136-145 [facility] Work Phone: Triglyceride [Mass/Vol] 71 mg/dL <199 [facility] Work Phone: Comment on above: The drugs N-Acetylcy steine and Metamizole may falsely depress this assay.Serum Triglycerides Reference Interval Normal <150 mg/dL Borderline high 150 - 199 mg/dL High 200 - 499 mg/dL Very High > or = 500 mg/dL WBC (Bld) [#/Vol] 5.8 10*3/uL 4.4-11.0 [facility] Work Phone: [phone] Blood erythrocytes count (nu mber/volume)on 09-25-2022 RBC (Bld) [#/Vol] 4.00 10*6/uL 4.2-5.4 [facility] Work Phone: [phone] Blood hemoglobin measurement (mass/volume)on 09-25-2022 Hemoglobin (Bld) [Mass/Vol] 12.5 g/dL 12.0-15.0 [facility] Work Phone: Blood lymphocytes/100 leukoc yteson 09-25-2022 Lymphocytes/100 WBC (Bld) 31.6 % 19-41 [facility] Work Phone: Blood monocytes/100 leukocyt eson 09-25-2022 Monocytes/100 WBC (Bld) 7.9 % 0-10 [facility] Work Phone: Blood platelet mean volumeon 09-25-2022 Platelet mean volume (Bld) [Entitic vol] 11.0 fL 6.2-12.0 [facility] Work Phone: Determination of erythrocyte mean corpuscular volume (MCV)on 09-25-2022 MCV (RBC) [Entitic vol] 93.3 fL 81-99 [facility] Work Phone: [phone] Hematocrit Auto (Bld) [Volum e fraction]on 09-25-2022 Hematocrit (Bld) [Volume fraction] 37.3 % 37-47 [facility] Work Phone: Laboratory - Chemistry and C hemistry - challengeon 09-25-2022 ALP [Catalytic activity/Vol] 56 U/L 45-117 [facility] Work Phone: ALT [Catalytic activity/Vol] 23 U/L 13-56 [facility] Work Phone: CO2 [Moles/Vol] 25.0 mmol/L 21.0-32.0 [facility] Work Phone: [phone] Globulin (S) [Mass/Vol] 3.6 g/dL 2.2-4.2 [facility] Work Phone: [phone] Urea nitrogen/Creatinine [Mass ratio] 24.6 mg/mg 10-20 [facility] Work Phone: [phone] Laboratory - Hematology and Cell countson 09-25-2022 Erythrocyte distribution width (RBC) [Entitic vol] 45.9 fL 35.1-43.9 [facility] Work Phone: [phone] Erythrocyte distribution width (RBC) [Ratio] 13.3 % 11.6-14.6 [facility] Work Phone: [phone] Immature granulocytes/100 WBC (Bld) 0.200 % 0.0-0.9 [facility] Work Phone: [phone] Comment on above: IG% - Immature Granu locytes (promyelocytes, myelocytes and metamyelocytes) > 1% indicates that a LEFT SHIFT is Present. MCH (RBC) [Entitic mass] 31.3 pg 27.0-32.0 [facility] Work Phone: Nucleated RBC/100 WBC (Bld) [Ratio] 0 % 0-5 [facility] Work Phone: [phone] MCHC Auto (RBC) [Mass/Vol]on 09-25-2022 MCHC (RBC) [Mass/Vol] 33.5 g/dL 32-36 [facility] Work Phone: No Panel Informationon 09-25 Estimated GFR (MDRD) Amer 92 mL/min >60 [facility] Work Phone: Comment on above: GFR Calc Estimated GFR (MDRD) Non-Af Amer 76 mL/min >60 [facility] Work Phone: Comment on above: Non- GFR Calc Thyroid Stimulating Hormone (TSH) 1.44 uIU/mL 0.358-3.74 [facility] Work Phone: Vitamin D 25-Hydroxy 20.4 ng/mL [facility] Work Phone: Comment on above: Vitamin D 25(OH) Sta tus Range Deficiency <20 ng/mL (50nmol/L) Insufficiency 20 - 30 ng/mL (50 - 75 nmol/L) Sufficiency 30 - 100 ng/mL (75 - 250 nmol/L) Toxicity >100 ng/mL (>250 nmol/L) Platelets bldon 09-25-2022 Platelets (Bld) [#/Vol] 168 10*3/uL 150-450 [facility] Work Phone: Serum or plasma albumin susy urement (mass/volume)on 09-25-2022 Albumin [Mass/Vol] 3.6 g/dL 3.2-5.0 [facility] Work Phone: Serum or plasma albumin/glob ulin mass ratioon 09-25-2022 Albumin/Globulin [Mass ratio] 1.0 {ratio} 0.9-2.4 [facility] Work Phone: Serum or plasma calcium susy urement (mass/volume)on 09-25-2022 Calcium [Mass/Vol] 9.0 mg/dL 8.5-10.1 [facility] Work Phone: Serum or plasma cholesterol in HDL measurement (mass/volume)on 09-25-2022 Cholesterol in HDL [Mass/Vol] 94 mg/dL >40 [facility] Work Phone: Comment on above: The drugs N-Acetylcy steine and Metamizole may falsely depress this assay. Reference Range HDL <40 mg/dL Low HDL Cholesterol HDL >or= 60 mg/dL High HDL Cholesterol Serum or plasma cholesterol in VLDL measurement (mass/volume)on 09-25-2022 Cholesterol in VLDL [Mass/Vol] 14 mg/dL 5-40 [facility] Work Phone: Serum or plasma creatinine m easurement (mass/volume)on 09-25-2022 Creatinine [Mass/Vol] 0.77 mg/dL 0.55-1.02 [facility] Work Phone: Comment on above: The validity of the calculated GFR & GFRAA in patients over 70 years has not been determined. Clinical correlation is essential. Serum or plasma low density lipoprotein (LDL) cholesterol measurement (mass/volume)on 09-25-2022 Cholesterol in LDL [Mass/Vol] 55 mg/dL 0-130 [facility] Work Phone: Serum or plasma urea nitroge n measurement (mass/volume)on 09-25-2022 Urea nitrogen [Mass/Vol] 19 mg/dL 7-18 [facility] Work Phone: Thin prep Papanicolaou smear with manual screeningon 09-25-2022 Thin prep Papanicolaou smear with manual screening 50 U/L 15-37 [facility] Work Phone: Thin prep Papanicolaou smear with manual screening 10 5-15 [facility] Work Phone: Absolute lymphocyte counton 03-14-2022 Lymphocytes Auto (Unsp spec) [#/Vol] 1.82 10*3/uL 0.83-4.51 [facility] Work Phone: Basophil percentageon 2021 Basophils/100 WBC (Bld) 0.5 % 0-1 [facility] Work Phone: Bilirubin [Mass/Vol] 0.50 mg/dL 0.20-1.00 [facility] Work Phone: Comment on above: For patients on eltr ombopag therapy, use of Dim[place] TBIL is not recommended. Chloride [Moles/Vol] 106 mmol/L 98-107 [facility] Work Phone: Cholesterol [Mass/Vol] 174 mg/dL <200 [facility] Work Phone: Comment on above: <200 mg/dL Desirable 200-240 mg/dL Borderline >240 mg/dL High Risk Eosinophils/100 WBC (Bld) 2.1 % 0-5 [facility] Work Phone: [phone] Glucose [Mass/Vol] 106 mg/dL 74-106 [facility] Work Phone: Comment on above: Fasting Glucose resu lt from 100 to 125 mg/dL suggests IMPAIRED HOMEOSTASIS per A.D.A. criteria. Neutrophils (Bld) [#/Vol] 3.3 10*3/uL 2.0-7.7 [facility] Work Phone: [phone] Neutrophils/100 WBC (Bld) 56.9 % 47-70 [facility] Work Phone: [phone] Potassium [Moles/Vol] 4.5 mmol/L 3.5-5.1 [facility] Work Phone: [phone] Protein [Mass/Vol] 8.0 g/dL 6.4-8.2 [facility] Work Phone: [phone] Sodium [Moles/Vol] 139 mmol/L 136-145 [facility] Work Phone: [phone] Triglyceride [Mass/Vol] 113 mg/dL <199 [facility] Work Phone: Comment on above: The drugs N-Acetylcy steine and Metamizole may falsely depress this assay.Serum Triglycerides Reference Interval Normal <150 mg/dL Borderline high 150 - 199 mg/dL High 200 - 499 mg/dL Very High > or = 500 mg/dL WBC (Bld) [#/Vol] 5.8 10*3/uL 4.4-11.0 [facility] Work Phone: [phone] Blood erythrocytes count (nu mber/volume)on 03-14-2022 RBC (Bld) [#/Vol] 4.33 10*6/uL 4.2-5.4 [facility] Work Phone: [phone] Blood hemoglobin measurement (mass/volume)on 03-14-2022 Hemoglobin (Bld) [Mass/Vol] 13.2 g/dL 12.0-15.0 [facility] Work Phone: [phone] Blood lymphocytes/100 leukoc yteson 03-14-2022 Lymphocytes/100 WBC (Bld) 31.5 % 19-41 [facility] Work Phone: Blood monocytes/100 leukocyt eson 03-14-2022 Monocytes/100 WBC (Bld) 8.8 % 0-10 [facility] Work Phone: Blood platelet mean volumeon 03-14-2022 Platelet mean volume (Bld) [Entitic vol] 10.8 fL 6.2-12.0 [facility] Work Phone: Determination of erythrocyte mean corpuscular volume (MCV)on 03-14-2022 MCV (RBC) [Entitic vol] 92.1 fL 81-99 [facility] Work Phone: Hematocrit Auto (Bld) [Volum e fraction]on 03-14-2022 Hematocrit (Bld) [Volume fraction] 39.9 % 37-47 [facility] Work Phone: Laboratory - Chemistry and C hemistry - challengeon 03-14-2022 ALP [Catalytic activity/Vol] 66 U/L 45-117 [facility] Work Phone: ALT [Catalytic activity/Vol] 26 U/L 13-56 [facility] Work Phone: CO2 [Moles/Vol] 28.0 mmol/L 21.0-32.0 [facility] Work Phone: Globulin (S) [Mass/Vol] 4.0 g/dL 2.2-4.2 [facility] Work Phone: Urea nitrogen/Creatinine [Mass ratio] 27.3 mg/mg 10-20 [facility] Work Phone: Laboratory - Hematology and Cell countson 03-14-2022 Erythrocyte distribution width (RBC) [Entitic vol] 43.7 fL 35.1-43.9 [facility] Work Phone: Erythrocyte distribution width (RBC) [Ratio] 12.8 % 11.6-14.6 [facility] Work Phone: Immature granulocytes/100 WBC (Bld) 0.200 % 0.0-0.9 [facility] Work Phone: Comment on above: IG% - Immature Granu locytes (promyelocytes, myelocytes and metamyelocytes) > 1% indicates that a LEFT SHIFT is Present. MCH (RBC) [Entitic mass] 30.5 pg 27.0-32.0 [facility] Work Phone: Nucleated RBC/100 WBC (Bld) [Ratio] 0 % 0-5 [facility] Work Phone: MCHC Auto (RBC) [Mass/Vol]on 03-14-2022 MCHC (RBC) [Mass/Vol] 33.1 g/dL 32-36 [facility] Work Phone: No Panel Informationon 03-14 Estimated GFR (MDRD) Amer 83 mL/min >60 [facility] Work Phone: Comment on above: GFR Calc Estimated GFR (MDRD) Non-Af Amer 69 mL/min >60 [facility] Work Phone: Comment on above: Non- GFR Calc Thyroid Stimulating Hormone (TSH) 1.69 uIU/mL 0.358-3.74 [facility] Work Phone: Vitamin D 25-Hydroxy 27.2 ng/mL [facility] Work Phone: Comment on above: Vitamin D 25(OH) Sta tus Range Deficiency <20 ng/mL (50nmol/L) Insufficiency 20 - 30 ng/mL (50 - 75 nmol/L) Sufficiency 30 - 100 ng/mL (75 - 250 nmol/L) Toxicity >100 ng/mL (>250 nmol/L) Platelets bldon 03-14-2022 Platelets (Bld) [#/Vol] 184 10*3/uL 150-450 [facility] Work Phone: Serum or plasma albumin susy urement (mass/volume)on 03-14-2022 Albumin [Mass/Vol] 4.0 g/dL 3.2-5.0 [facility] Work Phone: Serum or plasma albumin/glob ulin mass ratioon 03-14-2022 Albumin/Globulin [Mass ratio] 1.0 {ratio} 0.9-2.4 [facility] Work Phone: Serum or plasma calcium susy urement (mass/volume)on 03-14-2022 Calcium [Mass/Vol] 9.4 mg/dL 8.5-10.1 [facility] Work Phone: Serum or plasma cholesterol in HDL measurement (mass/volume)on 03-14-2022 Cholesterol in HDL [Mass/Vol] 77 mg/dL >40 [facility] Work Phone: Comment on above: The drugs N-Acetylcy steine and Metamizole may falsely depress this assay. Reference Range HDL <40 mg/dL Low HDL Cholesterol HDL >or= 60 mg/dL High HDL Cholesterol Serum or plasma cholesterol in VLDL measurement (mass/volume)on 03-14-2022 Cholesterol in VLDL [Mass/Vol] 23 mg/dL 5-40 [facility] Work Phone: Serum or plasma creatinine m easurement (mass/volume)on 03-14-2022 Creatinine [Mass/Vol] 0.84 mg/dL 0.55-1.02 [facility] Work Phone: Comment on above: The validity of the calculated GFR & GFRAA in patients over 70 years has not been determined. Clinical correlation is essential. Serum or plasma low density lipoprotein (LDL) cholesterol measurement (mass/volume)on 03-14-2022 Cholesterol in LDL [Mass/Vol] 74 mg/dL 0-130 [facility] Work Phone: Serum or plasma urea nitroge n measurement (mass/volume)on 03-14-2022 Urea nitrogen [Mass/Vol] 23 mg/dL 7-18 [facility] Work Phone: Thin prep Papanicolaou smear with manual screeningon 03-14-2022 Thin prep Papanicolaou smear with manual screening 54 U/L 15-37 [facility] Work Phone: Thin prep Papanicolaou smear with manual screening 5 5-15 [facility] Work Phone: CNOVon 12-30-2017 CNOV Office Visit (AGCARDWST) ----GOGO WARE ([id number]) 1940 [facility] Time Provider Department12/30/17 1:30 PM SERGIO CARABALLO AGCARDWST During your visit [...] - metBeta madhu for ASHD with prior MO or prior LVEFANDlt;40 (NQF 0070) - N/ABeta [...] with treatment plan.This note was generated using AlphaSmart voice recognition system, and there may besome [...] significance. Sheopted for medical therapy.Electronically Signed:Sergio Caraballo [facility] 2017 1:45 PMCC:LAURA Marie Chiaj Provider: SERGIO CARABALLO [[id number]]Allergies As of Date: 12/30/2017(No Known Allergies)Date Reviewed: 12/30/2017Reviewed by: Edgar (Paige) Nagi - Fully AssessedReason for Visit: Follow Up [...] Lazar MA 12/30/2017 1:27 PM >> EDGAR LAAZR MA SatDec 30, 2017 1:27 PM Ran [...] [facility] PROGRESSon 12-30-2017 PROGRESS HNO ID: [id number] thor: Sergio Ha: (none)Author Type: PhysicianType: Progress NotesFiled: 12/31/2017 4:54 PMNote Text:PERTINENT CARDIAC HISTORYHTNTPN elevationHLObesityAortic stenosis - mildADHERENCE TO GUIDELINESACE-I or ARB for HF with prior LVEF<40 (NQF 0081) - N/AASA or Plavix for ASHD (NQF 0067) - metBeta madhu for ASHD with prior MO or prior LVEF<40 (NQF 0070) - N/ABeta [...] food, plant based diet - lifestyle recommendationformCLINICAL IMPRESSION/PLAN:Gogolinnette Ware has diffuse plaque and likely small [...] with treatment plan.This note was generated using [employer] voice recognition system, and theremay be some [...] borderlinesignificance. She opted for medical therapy.Electronically Signed:Sergio Caraballo [facility] 2017 1:45 [facility]:Eh [facility]udd[facility]eston [facility] (AGCARDWST) ----OTTOROBEGOGO MUÑOZ ([id number]) 1940 [facility] Time Provider Department12/23/17 1:15 PM SERGIO CARABALLO [...] - metBeta madhu for ASHD with prior MO or prior LVEFANDlt;40 (NQF 0070) - N/ABeta [...] plant based diet - lifestyle recommendation formCLINICAL IMPRESSION/PLAN:Gogolinnette Ware is doing well on her medication, [...] will be followed.She was offered angiography at [facility], [facility] This will be arranged for her in the near future.Her syncopal episode was most likely related to her acute illness and posturalhypotension, but we will consider event monitoring if she has recurrentsymptoms, especially if she is found to have normal coronaries.She will have chest x-ray and labs done today in anticipation of angiography. Iwill see her in one month or as needed.Written and verbal health teaching given to patient, patient verbalizesunderstanding and agrees with treatment plan.This note was generated using [employer] voice recognition system, and there may besome incorrect words, spellings, and punctuation that were not noted inchecking the note before saving.DIAGNOSIS FOR VISIT:NSTEMINear-syncopeHyper tensionHISTORY OF PRESENT ILLNESSGogo Ware is a 77-year-old woman who is seen at her request for secondopinion.She was recently admitted to [facility] following a an episode of nearsyncope which occurred in the setting of community-acquired pneumonia andlikely dehydration. Her troponin was detectable on admission and graduallyincreased to the 1.5 range. She had no chest discomfort. [facility] who recommended further evaluation includingangiography. She declined [...] and oriented x4.Musculoskeletal: No joint deformities.[facility] were reviewed. Troponin peaked at about 1.5. HisEKG showed no acute change.Echocardiogram showed normal ejection fraction. No wall motion abnormality wasdescribed. There was mild aortic stenosis.There was evidence of left-sided pneumonia on chest x-ray although white countwas normal. CTA showed no evidence of thromboembolic disease.She was discharged on aspirin, Plavix, Coreg, atorvastatin and valsartan..Electronically Signed:Sergio Caraballo [facility]DBanner [facility] 2017 1:34 [facility]: Alise Davison MD 12/23/2017 1:34 PM SignedLIFESTYLE [...] answered to her satisfaction.Referring Provider: SERGIO CARABALLO [[id number]]Allergies As of Date: 12/23/2017(No Known Allergies)Date Reviewed: 07/28/2015Reviewed by: Eryn Contreras LPN - Fully AssessedReason for Visit: New Patient [172] Cmt: hospital f/uPrimary Visit Diagnosis:NSTEMI (non-ST elevated myocardial infarction) (HCC) [I21.4] Other Visit Diagnosis:Essential hypertension [I10]Order(s):LEFT HEART CATH,PERCUTANEOUS [51434RQT] Order #: [id number]: 1 BASIC METABOLIC PNL [SQBMP] Order #: [id number] FUTURE CBC [SQCBC] Order #: [id number] FUTURE PROTHROMBIN TIME/PT [SQPT] Order #: [id number] FUTURE XR CHEST 2V FRONTAL/LAT [[id number]] Order #: [id number] FUTUREPrescriptions as of 12/23/2017 Sig: BRIMONIDINE 0.2 [...] the following areas and commit to making skilled nursing changes. EAT A WHOLE FOOD, PLANT BASED [...] SmartForms filed during this visit:Extended VitalsEncounter Number: [id number] Status:Closed by SERGIO CARABALLO MD on 12/23/17 Normal [facility] PROGRESSon 12-23-2017 PROGRESS HNO ID: [id number] thor: Sergio Ha: (none)Author Type: PhysicianType: Progress NotesFiled: 12/23/2017 5:08 PMNote Text:PERTINENT CARDIAC HISTORYHTNTPN elevationHLObesityAortic stenosis - mildADHERENCE TO GUIDELINESACE-I or ARB for HF with prior LVEF<40 (NQF 0081) - N/AASA or Plavix for ASHD (NQF 0067) - metBeta madhu for ASHD with prior MO or prior LVEF<40 (NQF 0070) - N/ABeta [...] will be followed.She was offered angiography at [facility], but [facility] This will be arranged for her in [...] with treatment plan.This note was generated using AlphaSmart voice recognition system, and theremay be some incorrect words, spellings, and punctuation that were notnoted in checking the note before saving.DIAGNOSIS FOR VISIT:NSTEMINear-syncopeHyper tensionHISTORY OF PRESENT ILLNESSGogo Ware is a 77-year-old woman who is seen at her request forsecond opinion.She was recently admitted to [facility] following a an episode ofnear syncope which occurred in the setting of community-acquired pneumoniaand likely dehydration. Her troponin was detectable on admission andgradually increased to the 1.5 range. She had no chest discomfort. She wasseen by the [facility] finish filer who recommended furtherevaluation including angiography. She declined [...] and oriented x4.Musculoskeletal: No joint deformities.[facility] were reviewed. Troponin peaked at about 1.5.His EKG showed no acute change.Echocardiogram showed normal ejection fraction. No wall motion abnormalitywas described. There was mild aortic stenosis.There was evidence of left-sided pneumonia on chest x-ray although whitecount was normal. CTA showed no evidence of thromboembolic disease.She was discharged on aspirin, Plavix, Coreg, atorvastatin and valsartan..Electronically Signed:Sergio Caraballo MDFebruary 2017 1:34 PMCC: Fritz Little MD [facility] No Panel Information [facility] Vital Signs Date Time Vital Sign Value Performing Clinician Facility 06-07-2025 09:54-0400 Body temperature 97.3 [degF] Dr. Eh Huddleston MD Work Phone: [facility] 06-07-2025 09:54-0400 Diastolic blood pressure 56 mm[Hg] Dr. Eh Huddleston MD Work Phone: 4(004)028-736342 [place] [address] 06-07-2025 09:54-0400 Heart rate 67 /min Dr. Eh Huddleston MD Work Phone: [facility] 06-07-2025 09:54-0400 Respiratory rate 16 /min Dr. Eh Huddleston MD Work Phone: [facility] 06-07-2025 09:54-0400 SaO2% (BldA) [Mass fraction] 97 % Dr. Eh Huddleston MD Work Phone: [facility] 06-07-2025 09:54-0400 Systolic blood pressure 125 mm[Hg] Dr. Eh Huddleston MD Work Phone: [facility] 06-02-2025 16:23-0400 Body height 165.[address] Eh Huddleston MD Work Phone: [facility] 06-02-2025 16:23-0400 Body weight 81.[address] Eh Huddleston MD Work Phone: [facility] 06-01-2025 12:00-0400 Body mass index (BMI) [Ratio] 29.9 kg/m2 Dr. Eh Huddleston MD Work Phone: [facility] 05-27-2025 17:21-0400 Diastolic blood pressure 57 mm[Hg] Dr. Eh Huddleston MD Work Phone: [facility] 05-27-2025 17:21-0400 Heart rate 77 /min Dr. Eh Huddleston MD Work Phone: 8(283)095-211742 [place] [address] 05-27-2025 17:21-0400 Systolic blood pressure 156 mm[Hg] Dr. Eh Huddleston MD Work Phone: 0(652)188-801066 [place] [address] 05-27-2025 08:41-0400 Body temperature 97.6 [degF] Dr. Eh Huddleston MD Work Phone: 0(532)455-428266 [place] [address] 05-27-2025 08:41-0400 Respiratory rate 16 /min Dr. Eh Huddleston MD Work Phone: 3(542)224-266566 [place] [address] 05-27-2025 08:41-0400 SaO2% (BldA) [Mass fraction] 97 % Dr. Eh Huddleston MD Work Phone: 2(742)268-578866 [place] [address] 05-26-2025 15:27-0400 Body height 165.[address] Eh Huddleston MD Work Phone: 6(179)046-165666 [place] [address] 05-26-2025 15:27-0400 Body weight 80.[address] Eh Huddleston MD Work Phone: 5(937)214-072166 [place] [address] 05-25-2025 12:33-0400 Body mass index (BMI) [Ratio] 29.3 kg/m2 Dr. Eh Huddleston MD Work Phone: 5(951)095-872166 [place] [address] 05-14-2025 11:28-0400 Body temperature 97.8 [degF] Dr. Eh Huddleston MD Work Phone: 1(464)423-460266 [place] [address] 05-14-2025 11:28-0400 Diastolic blood pressure 43 mm[Hg] Dr. Eh Huddleston MD Work Phone: 9(740)474-553566 [place] [address] 05-14-2025 11:28-0400 Heart rate 74 /min Dr. Eh Huddleston MD Work Phone: 6(508)329-349142 [place] [address] 05-14-2025 11:28-0400 Respiratory rate 16 /min Dr. Eh Huddleston MD Work Phone: 6(994)582-378666 [place] [address] 05-14-2025 11:28-0400 SaO2% (BldA) [Mass fraction] 100 % Dr. Eh Huddleston MD Work Phone: 7(741)286-257342 [place] [address] 05-14-2025 11:28-0400 Systolic blood pressure 129 mm[Hg] Dr. Eh Huddleston MD Work Phone: 1(747)898-442566 [place] [address] 05-14-2025 00:24-0400 Body mass index (BMI) [Ratio] 27.3 kg/m2 Dr. Eh Huddleston MD Work Phone: 2(750)584-506166 [place] [address] 05-12-2025 14:41-0400 Body height 166.[address] Eh Huddleston MD Work Phone: 1(573)568-796766 [place] [address] 05-12-2025 14:41-0400 Body weight 75.[address] Eh Huddleston MD Work Phone: 5(589)593-182666 [place] [address] 05-07-2025 14:13-0400 Body temperature 97.6 [degF] Dr. Eh Huddleston MD Work Phone: 5(918)781-960566 [place] [address] 05-07-2025 14:13-0400 Diastolic blood pressure 56 mm[Hg] Dr. Eh Huddleston MD Work Phone: 9(311)852-576066 [place] [address] 05-07-2025 14:13-0400 Heart rate 75 /min Dr. Eh Huddleston MD Work Phone: 2(983)548-762242 [place] [address] 05-07-2025 14:13-0400 Respiratory rate 12 /min Dr. Eh Huddleston MD Work Phone: 9(126)455-876542 [place] [address] 05-07-2025 14:13-0400 SaO2% (BldA) [Mass fraction] 97 % Dr. Eh Huddleston MD Work Phone: 6(707)686-397842 [place] [address] 05-07-2025 14:13-0400 Systolic blood pressure 109 mm[Hg] Dr. Eh Huddleston MD Work Phone: 9(574)295-306142 [place] [address] 05-07-2025 07:09-0400 Body height 165.[address] Eh Huddleston MD Work Phone: 5(428)120-776942 [place] [address] 04-07-2025 07:10-0400 Body height 166.[address] Eh Huddleston MD Work Phone: [facility] 04-07-2025 07:10-0400 Body weight 78.[address] Eh Huddleston MD Work Phone: [facility] 03-28-2025 00:32-0400 Body weight 77.[address] Eh Huddleston MD Work Phone: [facility] 03-11-2025 10:21-0400 Body height 166.[address] Eh Huddleston MD Work Phone: [facility] 03-11-2025 10:21-0400 Body weight 77.[address] Eh Huddleston MD Work Phone: [facility] 03-02-2025 13:14-0400 Body height 166.4 cm Lucy Mccall AIR QUALITY SPECIALIST.DATA LIBRARIAN Work Phone: [facility] 03-02-2025 13:14-0400 Body mass index (BMI) [Ratio] 27.2 kg/m2 Lucy Mccall AIR QUALITY SPECIALIST.DATA LIBRARIAN Work Phone: [facility] 03-02-2025 13:14-0400 Body weight 75.3 kg Lucy Mccall AIR QUALITY SPECIALIST.DATA LIBRARIAN Work Phone: [facility] 03-02-2025 13:14-0400 Diastolic blood pressure 58 mm[Hg] Lucy Mccall AIR QUALITY SPECIALIST.DATA LIBRARIAN Work Phone: [facility] 03-02-2025 13:14-0400 Respiratory rate 17 /min Lucy Mccall AIR QUALITY SPECIALIST.DATA LIBRARIAN Work Phone: [facility] 03-02-2025 13:14-0400 SaO2% (BldA) [Mass fraction] 98 % Lucychester Mccall AIR QUALITY SPECIALIST.DATA LIBRARIAN Work Phone: [facility] 03-02-2025 13:14-0400 Systolic blood pressure 145 mm[Hg] Lucy Mccall AIR QUALITY SPECIALIST.DATA LIBRARIAN Work Phone: [facility] 02-10-2025 11:37-0400 Body weight 77.[address] Eh Huddleston MD Work Phone: [facility] 01-14-2025 10:38-0400 Body mass index (BMI) [Ratio] 26.9 kg/m2 Dr. Eh Huddleston MD Work Phone: [facility] 01-14-2025 10:33-0400 Body height 166.[address] Eh Huddleston MD Work Phone: [facility] 01-14-2025 10:33-0400 Body weight 74.[address] Eh Huddleston MD Work Phone: [facility] 01-14-2025 10:16-0400 Diastolic blood pressure 53 mm[Hg] Dr. Eh Huddleston MD Work Phone: [facility] 01-14-2025 10:16-0400 Heart rate 64 /min Dr. Eh Huddleston MD Work Phone: [facility] 01-14-2025 10:16-0400 SaO2% (BldA) [Mass fraction] 97 % Dr. Eh Huddleston MD Work Phone: [facility] 01-14-2025 10:16-0400 Systolic blood pressure 128 mm[Hg] Dr. Eh Huddleston MD Work Phone: [facility] 12-23-2024 13:48-0500 Body height 165.1 cm Dengselina Smith AIR QUALITY SPECIALIST.DATA LIBRARIAN Work Phone: [facility] 12-23-2024 13:48-0500 Body mass index (BMI) [Ratio] 27.29 kg/m2 Deng Casselton AIR QUALITY SPECIALIST.DATA LIBRARIAN Work Phone: [facility] 12-23-2024 13:48-0500 Body weight 74.39 kg Deng Casselton AIR QUALITY SPECIALIST.DATA LIBRARIAN Work Phone: [facility] 12-23-2024 13:48-0500 Diastolic blood pressure 53 mm[Hg] Dengselina Smith AIR QUALITY SPECIALIST.DATA LIBRARIAN Work Phone: [facility] 12-23-2024 13:48-0500 Heart rate 64 /min Deng Smith AIR QUALITY SPECIALIST.DATA LIBRARIAN Work Phone: [facility] 12-23-2024 13:48-0500 Respiratory rate 18 /min Deng Casselton AIR QUALITY SPECIALIST.DATA LIBRARIAN Work Phone: [facility] 12-23-2024 13:48-0500 SaO2% (BldA) [Mass fraction] 97 % Deng Casselton AIR QUALITY SPECIALIST.DATA LIBRARIAN Work Phone: [facility] 12-23-2024 13:48-0500 Systolic blood pressure 128 mm[Hg] Deng Casselton AIR QUALITY SPECIALIST.DATA LIBRARIAN Work Phone: [facility] 11-10-2024 09:59-0500 Body mass index (BMI) [Ratio] 27.29 kg/m2 Deng Arya AIR QUALITY SPECIALIST.DATA LIBRARIAN Work Phone: [facility] 11-10-2024 09:59-0500 Body weight 74.39 kg Deng Arya AIR QUALITY SPECIALIST.DATA LIBRARIAN Work Phone: [facility] 11-10-2024 09:59-0500 Diastolic blood pressure 55 mm[Hg] Deng Arya AIR QUALITY SPECIALIST.DATA LIBRARIAN Work Phone: [facility] 11-10-2024 09:59-0500 Heart rate 62 /min Deng Arya AIR QUALITY SPECIALIST.DATA LIBRARIAN Work Phone: [facility] 11-10-2024 09:59-0500 Respiratory rate 16 /min Deng Arya AIR QUALITY SPECIALIST.DATA LIBRARIAN Work Phone: [facility] 11-10-2024 09:59-0500 SaO2% (BldA) [Mass fraction] 97 % Deng Arya AIR QUALITY SPECIALIST.DATA LIBRARIAN Work Phone: [facility] 11-10-2024 09:59-0500 Systolic blood pressure 133 mm[Hg] Deng Arya AIR QUALITY SPECIALIST.DATA LIBRARIAN Work Phone: [facility] 10-30-2024 09:13-0500 SaO2% (BldA) [Mass fraction] 100 % JAMES LINDO [facility] Comment on above: Order Comment: Specimen Type: ARTERIAL B LOOD SPECIMEN Ordering Facility: [facility] Address: [address] [place] [address] Performed By: #### A LLBG #### [facility] CLIA [id number] [place], [place] [address] [address] [place] 10-29-2024 13:51-0500 Body height 165.1 cm [facility] 10-29-2024 13:51-0500 Body mass index (BMI) [Ratio] 27.12 kg/m2 [facility] 10-29-2024 13:51-0500 Body weight 73.94 kg [facility] 10-29-2024 13:51-0500 Diastolic blood pressure 70 mm[Hg] [facility] 10-29-2024 13:51-0500 Heart rate 65 /min [facility] 10-29-2024 13:51-0500 SaO2% (BldA) [Mass fraction] 96 % [facility] 10-29-2024 13:51-0500 Systolic blood pressure 138 mm[Hg] [facility] 08-31-2024 09:36-0500 Diastolic blood pressure 59 mm[Hg] Odilon Wells MD Work Phone: [facility] 08-31-2024 09:36-0500 Systolic blood pressure 144 mm[Hg] Odilon Wells MD Work Phone: [facility] 08-31-2024 09:33-0500 Body height 165.1 cm Odilon Wells MD Work Phone: [facility] 08-31-2024 09:33-0500 Body mass index (BMI) [Ratio] 27.22 kg/m2 Odilon Wells MD Work Phone: [facility] 08-31-2024 09:33-0500 Body weight 74.21 kg Odilon Wells MD Work Phone: [facility] 08-31-2024 09:33-0500 Heart rate 65 /min Odilon Wells MD Work Phone: [facility] 08-31-2024 09:33-0500 Respiratory rate 18 /min Odilon Wells MD Work Phone: [facility] 08-31-2024 09:33-0500 SaO2% (BldA) [Mass fraction] 98 % Odilon Wells MD Work Phone: [facility] Comment on above: RA 04-28-2024 14:32-0400 Body height 165.1 cm James Lindo MD Work Phone: [facility] 04-28-2024 14:32-0400 Body mass index (BMI) [Ratio] 27.12 kg/m2 James iLndo MD Work Phone: [facility] 04-28-2024 14:32-0400 Body weight 73.94 kg James Lindo MD Work Phone: [facility] 04-28-2024 14:32-0400 Diastolic blood pressure 66 mm[Hg] James Lindo MD Work Phone: [facility] 04-28-2024 14:32-0400 Heart rate 58 /min James Lindo MD Work Phone: [facility] 04-28-2024 14:32-0400 SaO2% (BldA) [Mass fraction] 97 % James Lindo MD Work Phone: [facility] 04-28-2024 14:32-0400 Systolic blood pressure 137 mm[Hg] James Lindo MD Work Phone: [facility] 04-06-2024 13:03-0400 Body height 165.1 cm Pac 1 Work Phone: [facility] 04-06-2024 13:03-0400 Body mass index (BMI) [Ratio] 27.96 kg/m2 Pacc 1 Work Phone: [facility] 04-06-2024 13:03-0400 Body temperature 98.6 [degF] Pacc 1 Work Phone: [facility] 04-06-2024 13:03-0400 Body weight 76.2 kg Pacc 1 Work Phone: [facility] 04-06-2024 13:03-0400 Diastolic blood pressure 80 mm[Hg] Pacc 1 Work Phone: [facility] 04-06-2024 13:03-0400 Heart rate 60 /min Pacc 1 Work Phone: [facility] 04-06-2024 13:03-0400 Respiratory rate 14 /min Pacc 1 Work Phone: [facility] 04-06-2024 13:03-0400 SaO2% (BldA) [Mass fraction] 98 % Pacc 1 Work Phone: [facility] 04-06-2024 13:03-0400 Systolic blood pressure 124 mm[Hg] Pacc 1 Work Phone: [facility] 09-10-2023 14:04-0500 Body height 166.[address] Eh Huddleston Work Phone: [facility] 09-10-2023 14:04-0500 Body mass index (BMI) [Ratio] 26.9 kg/m2 Dr. Eh Huddleston Work Phone: [facility] 09-10-2023 14:04-0500 Body weight 74.[address] Eh Huddleston Work Phone: [facility] 09-10-2023 14:04-0500 Diastolic blood pressure 72 mm[Hg] Dr. Eh Huddleston Work Phone: [facility] 09-10-2023 14:04-0500 Heart rate 65 /min Dr. Eh Huddleston Work Phone: [facility] 09-10-2023 14:04-0500 Respiratory rate 18 /min Dr. Eh Huddleston Work Phone: [facility] 09-10-2023 14:04-0500 SaO2% (BldA) [Mass fraction] 98 % Dr. Eh Huddleston Work Phone: [facility] 09-10-2023 14:04-0500 Systolic blood pressure 133 mm[Hg] Dr. Eh Huddleston Work Phone: [facility] 08-05-2023 15:27-0400 Diastolic blood pressure 80 mm[Hg] Dr. Eh Huddleston Work Phone: [facility] 08-05-2023 15:27-0400 Systolic blood pressure 150 mm[Hg] Dr. Eh Huddleston Work Phone: [facility] 08-05-2023 14:46-0400 Body mass index (BMI) [Ratio] 26.4 kg/m2 Dr. Eh Huddleston Work Phone: [facility] 08-05-2023 14:46-0400 Body weight 73.[address] Eh Huddleston Work Phone: 6(708)686-613142 [place] [address] 08-05-2023 14:46-0400 Heart rate 66 /min Dr. Eh Huddleston Work Phone: 0(580)365-436342 [place] [address] 08-05-2023 14:46-0400 Respiratory rate 18 /min Dr. Eh Huddleston Work Phone: [facility] 08-05-2023 14:46-0400 SaO2% (BldA) [Mass fraction] 97 % Dr. Eh Huddleston Work Phone: [facility] 06-06-2022 13:05-0400 Body height 166.[address] Eh Huddleston Work Phone: [facility] Work Phone: 06-06-2022 13:05-0400 Body mass index (BMI) [Ratio] 28.2 kg/m2 Dr. Eh Huddleston Work Phone: [facility] Work Phone: 06-06-2022 13:05-0400 Body weight 78.[address] Eh Huddleston Work Phone: [facility] Work Phone: 06-06-2022 13:05-0400 Diastolic blood pressure 80 mm[Hg] Dr. Eh Huddleston Work Phone: [facility] Work Phone: 06-06-2022 13:05-0400 Heart rate 56 /min Dr. Eh Huddleston Work Phone: [facility] Work Phone: 06-06-2022 13:05-0400 Respiratory rate 18 /min Dr. Eh Huddleston Work Phone: [facility] Work Phone: 06-06-2022 13:05-0400 Systolic blood pressure 148 mm[Hg] Dr. Eh Huddleston Work Phone: [facility] Work Phone: Encounters Encounter Date Encounter Type Care Provider Facility Start: 08-19-2025 ambulatory [facility] Facility:[facility] Start: 08-12-2025 ambulatory Efewongbe Oleghe OLS Fa cility:[facility] Start: 08-05-2025 ambulatory Efewongbe Oleghe OLS Fa cility:[facility] Start: 07-29-2025 ambulatory Efewongbe Oleghe OLS Fa cility:[facility] Start: 07-22-2025 ambulatory Efewongbe Oleghe OLS Fa cility:[facility] Start: 07-15-2025 ambulatory Efewongbe Oleghe OLS Fa cility:[facility] Start: 07-08-2025 ambulatory Efewongbe Oleghe OLS Fa cility:[facility] Start: 07-01-2025 ambulatory [facility] Facility:[facility] Start: 07-01-2025 Nereyda Jennings Start: 06-24-2025 ambulatory [facility] Facility:[facility] Start: 06-24-2025 Nereyda Jennings Start: 06-23-2025 End: 06-23-2025 Maricarmen DOW [facility] Work Phone: Start: 06-23-2025 End: 06-23-[address] Eh Huddleston MD Work Phone: -[facility] Start: 06-22-2025 End: 06-22-[address] Eh Huddleston MD Work Phone: [facility] Start: 06-22-2025 End: 06-22-2025 Dr. Nereyda Manzo MD -[facility] Work Phone: Start: 06-17-2025 ambulatory Eh Chi [place] Facility:[facility] Start: 06-17-2025 Nereyda Manzo MD [facility] Edda Jennings Start: 06-16-2025 End: 06-16-[address] Eh Huddleston MD Work Phone: [facility] Start: 06-16-2025 End: 06-16-2025 [facility] Work Phone: Start: 06-16-2025 ambulatory Eh Chi [place] Facility:[facility] Start: 06-16-2025 Nereyda Manzo MD [facility] Edda Jennings Start: 06-15-2025 End: 06-15-2025 [facility] Work Phone: Start: 06-15-2025 End: 06-15-2025 ambulatory Odilon Wells MD Work Phone: Cardiology Comment on above: Per our discussion Start: 06-15-2025 End: 06-15-2025 E-mail encounter from caregiver Odilon Wells MD Work Phone: Cardiology Start: 06-10-2025 ambulatory Eh Chi [place] Facility:[facility] Start: 06-10-2025 Dr. Vimal Angulo MD -[facility] Start: 06-08-2025 ambulatory Eh Chi [place] Facility:[facility] Start: 06-08-[address] Vimal culver MD -[facility] Start: 06-08-2025 Dr. Vimal Angulo MD -[facility] Start: 06-07-2025 ambulatory Eh Chi [place] Facility:[facility] Start: 06-03-2025 Non-patient / Non-visit Dr. Katelyn quijano MD -[facility] Start: 06-03-2025 Dr. Katelyn Kuhn MD [facility] Start: 06-01-2025 Non-patient / Non-visit Dr. Basim lópez MD -[facility] Start: 06-01-2025 End: 06-01-[address] Eh Huddleston MD Work Phone: -Cardiovascular Services Start: 06-01-2025 End: 06-01-[address] Eh Huddleston MD -Cardiovascular Services Work Phone: Start: 06-01-2025 End: 06-01-2025 Dr. Basim Murillo MD -[facility] Start: 06-01-2025 End: 06-01-2025 ambulatory Eh [facility] [place] Facility:[facility] Start: 05-14-2025 End: 06-07-2025 Dr. Eh Huddleston MD -[facility] Start: 05-14-2025 ambulatory [facility] Start: 05-14-2025 End: 06-07-2025 Evaluation and management of inpatient Dr. Eh Huddleston MD -Transitional Care Unit Start: 05-14-2025 Non-patient / Non-visit Dr. Manny Murdock MD -[facility] Work Phone: Start: 05-14-2025 Dr. Manny Murdock MD -[facility] Work Phone: Start: 05-13-2025 Non-patient / Non-visit Dr. Manny Murdock MD -[facility] Work Phone: Start: 05-13-2025 Dr. Manny Murdock MD -[facility] Work Phone: Start: 05-12-2025 Non-patient / Non-visit Dr. Manny Murdock MD -[facility] Work Phone: Start: 05-12-2025 Dr. Manny Murdock MD [facility] Work Phone: Start: 05-11-2025 ambulatory Eh Chi [place] Facility:[facility] Start: 05-11-2025 Non-patient / Non-visit Dr. Tracy tabor MD -[facility] Start: 05-11-2025 Dr. Tracy Kaur MD -[facility] Start: 05-11-2025 Non-patient / Non-visit Dr. Paige Casiano [facility] Work Phone: Start: 05-11-2025 Dr. Sourav braun DO [facility] Work Phone: Start: 05-10-2025 Non-patient / Non-visit Dr. Paige Casiano [facility] Work Phone: Start: 05-10-2025 Dr. Sourav braun DO [facility] Work Phone: Start: 05-09-2025 Non-patient / Non-visit Dr. Paige Casiano DO [facility] Work Phone: Start: 05-09-2025 Dr. Sourav braun DO [facility] Work Phone: Start: 05-08-2025 Non-patient / Non-visit Dr. Paige Casiano DO [facility] Work Phone: Start: 05-08-2025 Dr. Sourav braun DO [facility] Work Phone: Start: 05-08-2025 End: 05-08-2025 ambulatory Eh Chi Flaquito Facility:[facility] Start: 05-08-2025 End: 05-08-2025 Non-patient / Non-visit Dr. Azul Pratt MD -[facility] Work Phone: Start: 05-08-2025 End: 05-08-2025 Dr. Azul Pratt MD -[facility] Work Phone: Start: 05-07-2025 Non-patient / Non-visit Dr. Paige Casiano [facility] Work Phone: Start: 05-07-2025 Dr. Sourav braun DO [facility] Work Phone: Start: 05-07-2025 ambulatory Sourav Casiano Facilit y:[facility] Start: 05-07-2025 End: 05-14-2025 Evaluation and [...] ambulatory Dr. Eh Huddleston MD Work Phone: [facility] Work Phone: Start: 03-31-2025 End: 03-31-[address] Eh Huddleston MD -Laboratory Work Phone: Start: 03-31-2025 End: 03-31-2025 Dr. Eh Huddleston MD -Laboratory Work Phone: Start: 03-31-2025 End: 03-31-2025 ambulatory Eh Huddleston Facility:[facility] Start: 03-26-2025 End: 03-26-2025 Refill Odilon Wells MD Work Phone: Cardiology Comment on above: Refill Request Start: 03-24-2025 End: 03-27-[address] Eh Huddleston MD Work Phone: [facility] Work Phone: Start: 03-24-2025 End: 03-27-[address] Eh Huddleston MD Work Phone: -Cardiac Rehab Work Phone: Start: 03-24-2025 End: 03-27-2025 Dr. Eh Huddleston MD Work Phone: -Cardiac Rehab Work Phone: Start: 03-11-2025 End: 03-11-2025 Telephone encounter Odilon Wells MD Work Phone: Cardiology Comment on above: Insurance Authorizat ion Start: 03-05-2025 End: 03-05-2025 Telephone encounter Lucy Mccall APRN.DATA LIBRARIAN Work Phone: Cardiology Start: 03-04-2025 End: 03-04-2025 Telephone encounter Lucy Mccall APRN.DATA LIBRARIAN Work Phone: Cardiology Start: 03-02-2025 End: 03-02-2025 Patient encounter procedure Lucy Mccall APRN.DATA LIBRARIAN Work Phone: Cardiology Comment on above: Mixed hyperlipidemia (Primary Dx); S/P TAVR (transcatheter aortic valve replacement); Chronic diastolic congestive heart failure (HCC); Coronary artery disease involving [place] coronary artery of [place] heart with angina pectoris; Essential (primary) hypertension; Acute deep vein thrombosis (DVT) of calf muscle vein of right lower extremity (HCC) Start: 03-02-2025 End: 03-02-2025 ambulatory EH HUDDLESTON Facility:[facility] Start: 03-02-2025 End: 03-02-2025 Subsequent hospital visit by physician Meeta Parmar (I-Stat) Work Phone: Radiology Comment on above: Mixed hyperlipidemia [E78.2] Start: 03-02-2025 ambulatory ODILON WELLS Facility:[facility] Start: 03-02-2025 End: 03-02-2025 ambulatory ODILON DORSEY Facility:[facility] Start: 03-01-2025 End: 03-01-2025 Telephone encounter Odilon Wells MD Work Phone: Cardiology Start: 02-24-2025 End: 02-24-2025 ambulatory Eh Huddleston Facility:[facility] Start: 02-24-2025 End: 02-24-[address] Eh Huddleston MD Work Phone: -Cardiac Rehab Work Phone: Start: 02-24-2025 End: 02-24-2025 Dr. Eh Huddleston MD Work Phone: -Cardiac Rehab Work Phone: Start: 01-25-2025 End: 01-25-[address] Eh Huddleston MD Work Phone: [facility] Work Phone: Start: 01-25-2025 End: 01-25-[address] Eh Huddleston MD Work Phone: -Cardiac Rehab Work Phone: Start: 01-20-[address] Eh torres MD Work Phone: -Cardiac Rehab Work Phone: Start: 01-14-2025 End: 01-14-[address] Eh Huddleston MD Work Phone: [facility] Work Phone: Start: 01-14-2025 End: 01-14-[address] Eh Huddleston MD Work Phone: -Cardiac Rehab Work Phone: Start: 01-14-2025 End: 01-14-2025 ambulatory Eh Huddleston Facility:[facility] Start: 01-08-2025 End: 01-08-2025 Telephone encounter [...] End: 12-23-2024 Patient encounter procedure Deng Smith APRN.DATA LIBRARIAN Work Phone: Cardiology Comment on above: S/P TAVR (transcathe ter aortic valve replacement) (Primary Dx); Severe aortic stenosis; Nonrheumatic aortic valve stenosis; Coronary artery disease involving [place] coronary artery of [place] heart with angina pectoris (HCC); Mixed hyperlipidemia; Essential (primary) hypertension Start: 12-23-2024 End: 12-23-2024 ambulatory [facility] Facility:[facility] Start: 12-23-2024 End: 12-23-2024 ambulatory [facility] Facility:[facility] Start: 11-10-2024 End: 11-10-2024 Patient encounter procedure Deng Koenig APRN.DATA LIBRARIAN Work Phone: Cardiology Comment on above: S/P TAVR (transcathe ter aortic valve replacement) (Primary Dx); Acute on chronic diastolic congestive heart failure (HCC); Nonrheumatic aortic valve stenosis; Mixed hyperlipidemia; Essential (primary) hypertension; Coronary artery disease involving [place] coronary artery of [place] heart with angina pectoris (HCC) Start: 11-10-2024 End: 11-10-2024 ambulatory DENG ROUSSEAU Facility:[facility] Start: 10-30-2024 End: 10-30-2024 Orders Only Deng Koenig APRN.DATA LIBRARIAN Work Phone: Cardiology Comment on above: PAD (peripheral richard ry disease) (HCC) (Primary Dx) Start: 10-30-2024 End: 10-30-2024 Evaluation and management of inpatient [facility] Facility:[facility] Start: 10-29-2024 End: 10-29-2024 Admission to same day surgery center Anesthesia Clearance Work Phone: [facility] Work Phone: Start: 10-29-2024 End: 10-29-2024 ambulatory [facility] Facility:[facility] Start: 10-29-2024 End: 10-29-2024 Patient encounter procedure Anesthesia Clearance Work Phone: Cardiothoracic Comment on above: Encounter for preope rative anesthesiology assessment for cardiac surgery (Primary Dx) Nonrheumatic aortic valve stenosis (Primary Dx); Aortic valve disorder Nonrheumatic aortic valve stenosis (Primary Dx); S/P TAVR (transcatheter aortic valve replacement) Start: 10-29-2024 End: 10-29-2024 ambulatory [facility] Facility:[facility] Start: 10-29-2024 End: 10-29-2024 Subsequent hospital visit by physician Xr Chest Main J1 Work Phone: Radiology Comment on above: Nonrheumatic aortic valve stenosis [I35.0] Start: 10-07-2024 End: 10-07-2024 ambulatory Luba Llanes APRN.DATA LIBRARIAN Work Phone: Cardiology Comment on above: TAVR Schedule Start: 10-01-2024 End: 10-01-[address] hE Huddleston MD -Laboratory, Phy Office 3rd Flr Start: 10-01-2024 End: 10-01-2024 ambulatory Eh Chi Flaquito Facility:[facility] Start: 09-16-2024 End: 09-16-2024 Telephone encounter Greg Nash APRN.DATA LIBRARIAN Work Phone: Cardiology Comment on above: Dental form Start: 09-14-2024 End: 09-14-2024 ambulatory Kacy Jimenez AIR QUALITY 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 Work Phone: Cardiology Comment on above: TAVR team meeting Start: 09-09-2024 End: 09-09-2024 ambulatory KACY JIMENEZ Facility:[facility] Start: 09-09-2024 End: 09-09-2024 Patient encounter status Eh Huddleston Work Phone: [facility] Start: 09-09-2024 End: 09-09-2024 Subsequent hospital visit by physician [employer]ct[employer] Work Phone: Molecular Imaging Comment on above: Severe aortic stenos is by prior echocardiogram [I35.0] Start: 09-09-2024 End: 09-09-2024 Office outpatient new 30 minutes Genoveva Arteaga MD Work Phone: Cardiothoracic Comment on above: Nonrheumatic aortic valve stenosis (Primary Dx) Start: 09-09-2024 Encounter for preprocedural cardiovascular examination JAMES LINDO [facility] Start: 09-09-2024 End: 09-09-2024 Patient encounter procedure Pulm Fct Lab J-1 Pulmonary Medicine Comment on above: Nonrheumatic aortic valve stenosis (Primary Dx) Start: 09-09-2024 End: 09-09-2024 Patient encounter status Pulm J-1 [facility] Start: 09-09-2024 End: 09-09-2024 ambulatory GENOVEVA ARTEAGA Pulmonary Medicine Comment on above: Spirometry Start: 09-09-2024 End: 09-09-2024 ambulatory KACY JIMENEZ Facility:[facility] Start: 09-09-2024 End: 09-09-2024 Subsequent hospital visit by physician Nucinj [facility] Start: 09-03-2024 End: 09-03-2024 ambulatory ODILON WELLS Facility:[facility] Start: 09-02-2024 End: 09-02-2024 Telephone encounter Odilon Wells MD Work Phone: Cardiology Comment on above: Patient Education Start: 08-31-2024 End: 08-31-[address] (I-Stat) Work Phone: [facility] Start: 08-31-2024 End: 08-31-2024 Subsequent [...] stenosis (Primary Dx); Coronary artery disease involving [place] coronary artery of [place] heart, unspecified whether angina present; Encounter to establish care; Pre-operative cardiovascular examination; Chronic diastolic congestive heart failure (HCC) Start: 08-31-2024 End: 08-31-2024 Patient encounter status Odilon Wells MD Work Phone: [facility] Start: 06-09-2024 ambulatory Kacy Jimenez APRN.MAINTENANCE PLANNER Work Phone: Cardiology Start: 06-09-2024 Patient encounter procedure Kacy Jimenez APRN.MAINTENANCE PLANNER Work Phone: Cardiology Comment on above: TAVR referral Start: 06-09-2024 Patient encounter status Kacy Jimenez APRN.MAINTENANCE PLANNER Work Phone: [facility] Start: 05-26-2024 End: 05-26-2024 ambulatory WALI TRIANA Facility:[facility] Start: 05-26-2024 End: 05-26-2024 Patient encounter procedure Wali Triana MD Work Phone: Ophthalmology Comment on above: PCO (posterior capsu lar opacification), left (Primary Dx); Pseudophakia; Primary open angle glaucoma (POAG) of left eye, severe stage Start: 05-22-2024 Telephone encounter James Duvall nd, MD Work Phone: Cardiology Start: 04-28-2024 End: 04-28-2024 ambulatory JAMESLeonidas DUVALLJARAD Facility:[facility] Start: 04-28-2024 End: 04-28-2024 Patient encounter procedure James Lindo MD Work Phone: Cardiology Comment on above: Non-rheumatic aortic stenosis (Primary Dx); Coronary artery disease due to lipid rich plaque Start: 04-28-2024 End: 04-28-2024 ambulatory JAMES LINDO Facility:[facility] Start: 04-27-2024 Orders Only James Millard Work Phone: Cardiology Start: 04-23-2024 Telephone encounter James Duvall nd, MD Work Phone: Cardiology Comment on above: Appointment Appointment (Cardiol ogist appt 04/28/2024 ) Start: 04-21-2024 Telephone encounter Azul kelly APRN.CNP Work Phone: Internal Medicine Comment on above: Appointment (Cardiol ogy scheduling to discuss TAVR ); TAVR Start: 04-21-2024 End: 04-21-2024 ambulatory WALI TRIANA Facility:[facility] Start: 04-21-2024 End: 04-21-2024 Patient encounter procedure Wali Triana MD Work Phone: Ophthalmology Comment on above: Pseudophakia (Primar y Dx); Pseudoexfoliation of lens capsule Start: 04-16-2024 Telephone encounter Berta prather PA-C Work Phone: Internal Medicine Comment on above: Combat Control Manager - O ther Start: 04-15-2024 End: 04-15-2024 ambulatory THERESE RUELAS Facility:[facility] Start: 04-15-2024 Encounter for other preprocedural examination JAMES LINDO [facility] Start: 04-13-2024 Telephone encounter Berta prather PA-C Work Phone: Internal Medicine Comment on above: Combat Control Manager - O ther Start: 04-06-2024 Telephone encounter Dorothy Han APRN.CNP Work Phone: Pre Anesthesia Comment on above: Request Outside [facility] Records Patient Question Start: 04-06-2024 End: 04-06-2024 Admission to establishment [facility] Work Phone: Pre Anesthesia Start: 04-06-2024 End: 04-06-2024 Anesthesia consultation [place] [id number] Work Phone: Pre Anesthesia Comment on above: Pre-operative examin ation (Primary Dx); Severe aortic stenosis by prior echocardiogram; Coronary artery disease involving [place] coronary artery of [place] heart with angina pectoris (HCC); Insomnia, unspecified type; Essential (primary) hypertension; Mixed hyperlipidemia; Glaucoma, unspecified glaucoma type, unspecified laterality Start: 04-06-2024 End: 04-06-2024 Preprocedural examination done [place] [id number] Work Phone: [facility] Work Phone: Start: 01-17-2024 Preprocedural examination done Wali Triana MD Work Phone: [facility] Start: 01-17-2024 Telephone encounter Wali [...] 09-30-[address] Eh Huddleston Work Phone: [facility] Work Phone: Start: 09-30-2023 End: 09-30-[address] Eh Huddelston Work Phone: [facility]-Laboratory, Phy Office 3rd Flr Start: 09-10-2023 End: 09-10-[address] Eh Huddleston Work Phone: [facility] Work Phone: Start: 08-26-2023 Non-patient / Non-visit Dr. Collin Huddleston Work Phone: [facility] Start: 08-26-2023 End: 08-26-[address] [facility] Work Phone: Start: 08-05-2023 End: 08-05-[address] Eh Huddleston Work Phone: [facility] Work Phone: Start: 03-28-2023 End: 03-28-2023 ambulatory [facility] Work Phone: Start: 03-28-2023 End: 03-28-2023 [facility] Start: 09-25-2022 End: 09-25-[address] Eh Huddleston Work Phone: [facility] Work Phone: Start: 09-25-2022 End: 09-25-[address] [facility] Huddleston [facility] Office 3rd Okr Start: 07-09-2022 Non-patient / Non-visit Dr. Collin Huddleston Work Phone: [facility] Start: 07-09-2022 End: 07-09-[address] Eh Huddleston Work Phone: [facility] Work Phone: Start: 07-09-2022 End: 07-09-[address] [facility]uddleston [facility] Start: 06-06-2022 End: 08-10-[address] Eh Huddleston Work Phone: [facility] Start: 03-14-2022 End: 03-14-2022 Patient encounter procedure [facility]-Laboratory, Phy Office 3rd Flr Start: 04-01-2018 Ambulatory DEVEN HUDDLESTON Facility:[facility] Start: 01-21-2018 Ambulatory Fritz Little [facility] Start: 01-20-2018 Ambulatory SERGIO CARABALLO Facility :[facility] Start: 12-30-2017 End: 12-30-2017 Ambulatory SERGIO Nascimento [facility] Start: 12-23-2017 End: 12-23-2017 Ambulatory SERGIO Azam [facility] Procedures Date Procedure Procedure Detail Performing Clinician Start: 07-01-2025 Blood count smear mc rscp w/mnl difrntl wbc count Dr. Eh Huddleston MD Work Phone: Start: 07-01-2025 Mean corpuscular hem oglobin concentration determination Dr. Eh Huddleston MD Work Phone: Start: 07-01-2025 Nucleated red blood cell count procedure Dr. Eh Huddleston MD Work Phone: Start: 07-01-2025 Platelet mean volume determination Dr. Eh Huddleston MD Work Phone: Start: 06-24-2025 Blood count smear mc rscp w/mnl difrntl wbc count Dr. Eh Huddleston MD Work Phone: Start: 06-24-2025 Mean corpuscular hem oglobin concentration determination Dr. Eh Huddleston MD Work Phone: Start: 06-24-2025 Nucleated red blood cell count procedure Dr. Eh Huddleston MD Work Phone: Start: 06-24-2025 Platelet mean volume determination Dr. Eh Huddleston MD Work Phone: Start: 06-17-2025 Blood count smear mc rscp [...] Comment: Speci men Type: BLOOD SPECIMENOrdering Facility: [facility] Address: [address] [place] [address] Performed By: #### T [id number] ####CC MAIN BLOOD BANKCLIA [id number] [address] STATES OF [facility] Start: 10-29-2024 Radiologic exam ches t 2 views Luba Llanes AIR QUALITY SPECIALIST.DATA LIBRARIAN Work Phone: Start: 09-09-2024 Rp loclzj henry spect w/ct 1 area 1 day imaging Kacy Bañuelos Held AIR QUALITY 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 Work Phone: Start: 09-09-2024 Spmtry w/vc expirato ry pedro w/wo mxml vol vntj Kacy Bañuelos Held AIR QUALITY 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 Work Phone: Start: 08-31-2024 CTA CHEST/ABD/PEL (G ATED) W IVCON Kacy Bañuelos Held AIR QUALITY 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 Work Phone: Start: 11-04-2024 Creatinine [Mass/vol ume] in Serum or Plasma [facility] Provider Start: 08-31-2024 Radiologic exam ches t 2 views Kacy Bañuelos Held AIR QUALITY 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 Work Phone: Start: 01-16-2024 Ophthalmic ultrasoun d dx b-scan w/wo a-scan Wali Triana MD Work Phone: Start: 01-16-2024 IOL BIOMETRY W/ IOL CALC OU (BOTH EYES) Wali Triana MD Work Phone: Start: 01-16-2024 Computerized corneal topography uni/bi Wali Triana MD Work Phone: Plan of Treatment Date Care Activity Detail Author Start: 05-23-2031 Urine microalbumin profile DTaP,Tdap,Td Vaccine (2 - Td or Tdap) [facility] Start: 12-23-2027 Diabetes Screening Diabetes Screening [facility] Start: 10-31-2027 Diabetes Screening Diabetes Screening [facility] Start: 10-29-2027 Diabetes Screening Diabetes Screening [facility] Start: 08-31-2027 Diabetes Screening Diabetes Screening [facility] Start: 03-04-2026 End: 06-03-2026 Basic metabolic 2000 panel - Serum or Plasma BASIC METABOLIC PANEL Lab Routine S/P TAVR (transcatheter aortic valve replacement) Severe aortic stenosis Expected: 03/04/2026, Expires: 06/03/2026 [facility] Comment on above: Expected: 03/04/2026, Expires: Start: 03-04-2026 End: 06-03-2026 Comprehensive metabolic 2000 panel - Serum or Plasma COMPREHENSIVE METABOLIC PANEL Lab Routine S/P TAVR (transcatheter aortic valve replacement) Severe aortic stenosis Expected: 03/04/2026, Expires: 06/03/2026 [facility] Comment on above: Expected: 03/04/2026, Expires: Start: 03-04-2026 End: 06-03-2026 Natriuretic peptide.B prohormone N-Terminal [Mass/volume] in Serum or Plasma NT PRO BNP Lab Routine S/P TAVR (transcatheter aortic valve replacement) Severe aortic stenosis Expected: 03/04/2026, Expires: 06/03/2026 [facility] Comment on above: Expected: 03/04/2026, Expires: Start: 08-31-2025 Hepatitis B surface antibody level LDL Cholesterol [facility] Start: 06-28-2025 Influenza vaccination [facility] Start: 06-14-2025 End: 06-14-2025 Patient encounter procedure Vascular Med icine Comment on above: S/P TAVR (transcatheter aortic valve rep lacement S/P TAVR (transcathe ter aortic valve replacement) Start: 06-07-2025 Patient discharge [facility] Start: 06-04-2025 Enteric precautions [facility] Start: 06-02-2025 Consultation [facility] Start: 06-01-2025 [facility] Start: 05-26-2025 Wound care [facility] Start: 05-25-2025 [facility] Start: 05-25-2025 Urine culture Urine Culture [facility] Start: 05-18-2025 Removal of urinary catheter [facility] Start: 05-17-2025 Speech therapy management [facility] Start: 05-17-2025 Speech therapy assessment [facility] Start: 05-16-2025 Contact precautions [facility] Start: 05-15-2025 Development of care plan [facility] Start: 05-15-2025 Developing a treatment plan [facility] Start: 05-14-2025 Following clinical pathway protocol [facility] Start: 05-14-2025 Verification routine [facility] Start: 05-14-2025 Wound care [facility] Start: 05-14-2025 Admission procedure [facility] Start: 05-14-2025 Introduction of urinary catheter [facility] Start: 05-14-2025 Measuring intake and output [facility] Start: 05-14-2025 Patient referral to dietitian [facility] Start: 05-14-2025 Referral to occupational therapist [facility] Start: 05-14-2025 Referral to service [facility] Start: 05-14-2025 Vital signs measurements [facility] Start: 05-14-2025 [facility] Start: 05-14-2025 Patient discharge [facility] Start: 05-14-2025 Patient referral to dietitian [facility] Start: 05-13-2025 Vital signs measurements [facility] Start: 05-13-2025 [facility] Start: 05-12-2025 Aspiration precautions [facility] Start: 05-12-2025 Cardiac monitoring [facility] Start: 05-12-2025 Catheterization of vein [facility] Start: 05-12-2025 Consultation [facility] Start: 05-12-2025 Elevation of head of bed [facility] Start: 05-12-2025 Exercises [facility] Start: 05-12-2025 Notification of physician [facility] Start: 05-12-2025 Patient referral to dietitian [facility] Start: 05-12-2025 Referral to occupational therapist [facility] Start: 05-12-2025 Referral to service [facility] Start: 05-12-2025 Speech therapy assessment [facility] Start: 05-12-2025 Tobacco use cessation education [facility] Start: 05-12-2025 End: 05-12-2025 [facility] Start: 05-12-2025 Vital signs measurements [facility] Start: 05-11-2025 Telemedicine consultation with patient [facility] Start: 05-11-2025 End: 05-11-2025 Administration of blood product [facility] Start: 05-10-2025 [facility] Start: 05-10-2025 [facility] Start: 05-10-2025 Blood culture Blood Culture [facility] Start: 05-09-2025 Following clinical pathway protocol [facility] Start: 05-09-2025 Ambulation therapy management [facility] Start: 05-09-2025 Application of device [facility] Start: 05-09-2025 Exercises [facility] Start: 05-09-2025 Following clinical pathway protocol [facility] Start: 05-09-2025 Introduction of urinary catheter [facility] Start: 05-09-2025 Neurovascular assessment [facility] Start: 05-09-2025 Patient education [facility] Start: 05-09-2025 Provision of activity privileges [facility] Start: 05-09-2025 Referral to occupational therapist [facility] Start: 05-09-2025 Referral to service [facility] Start: 05-09-2025 Vital signs measurements [facility] Start: 05-09-2025 Wound care [facility] Start: 05-09-2025 [facility] Start: 05-08-2025 Following clinical pathway protocol [facility] Start: 05-08-2025 Measuring intake and output [facility] Start: 05-08-2025 Measuring intake and output [facility] Start: 05-07-2025 Measuring intake and output [facility] Start: 05-07-2025 Measuring intake and output [facility] Start: 05-07-2025 Application of ice collar, cap or bag [facility] Start: 05-07-2025 Bedrest [facility] Start: 05-07-2025 Following clinical pathway protocol [facility] Start: 05-07-2025 Assessment of risk of venous thromboembolism [facility] Start: 05-07-2025 Bedrest [facility] Start: 05-07-2025 Catheterization of vein [facility] Start: 05-07-2025 Consultation [facility] Start: 05-07-2025 Insertion of catheter into peripheral vein [facility] Start: 05-07-2025 Providing care according to standard [facility] Start: 05-07-2025 Referral to occupational therapist [facility] Start: 05-07-2025 Referral to service [facility] Start: 05-07-2025 [facility] Start: 05-07-2025 Hospital admission, emergency, from emergency room, medical nature [facility] Start: 05-07-2025 Verification routine [facility] Start: 05-07-2025 Admission procedure [facility] Start: 03-23-2025 End: 03-23-2025 Patient encounter procedure Vascular Med icine Comment on above: DX: CAD; HTN; HLD Start: 03-22-2025 End: 12-23-2025 US Lower extremity artery US LEG ARTERIAL PERIPH UNL VAS LAB Vascular Lab Routine Mixed hyperlipidemia Essential (primary) hypertension 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) Severe aortic stenosis Expected: 03/22/2025, Expires: 12/23/2025 [facility] Comment on above: Expected: 03/22/2025, Expires: Start: 03-22-2025 End: 12-23-2025 US Lower extremity artery - bilateral PVR ANK/CEE/TOE LARRY VAS LAB Vascular Lab Routine Mixed hyperlipidemia Essential (primary) hypertension 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) Severe aortic stenosis Expected: 03/22/2025, Expires: 12/23/2025 [facility] Comment on above: Expected: 03/22/2025, Expires: Start: 03-22-2025 End: 12-23-2025 US.doppler Extremity arteries - bilateral for physiologic artery study PVR ANK PRESS LARRY VAS LAB Vascular Lab Routine Mixed hyperlipidemia Essential (primary) hypertension 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) Severe aortic stenosis Expected: 03/22/2025, Expires: 12/23/2025 [facility] Comment on above: Expected: 03/22/2025, [...] disease) S/P TAVR Start: 12-23-2024 End: 12-23-2024 [facility] J1-4 Dra nathen Hendricks Comment on above: LAB S/P TAVR Start: 11-30-2024 End: 10-30-2025 US Lower extremity artery US LEG ARTERIAL PERIPH UNL VAS LAB Vascular Lab Routine PAD (peripheral artery disease) (HCC) Expected: 11/30/2024, Expires: 10/30/2025 [facility] Work Phone: Comment on above: Expected: 11/30/2024, Expires: Start: 11-10-2024 End: 11-10-2024 Patient encounter procedure 11/10/2024 9:45 AM EST Office Visit Cardiology [address] [id number] Deng Koenig APRN.DATA LIBRARIAN [address] [place] [address] S/P TAVR Cardiology Comment on above: S/P TAVR Start: 11-10-2024 End: 11-10-2024 ambulatory 11/10/2024 9:15 AM EST Results Only Cardiology [address] [place] [address] S/P TAVR Cardiology Comment on above: S/P TAVR Start: 10-30-2024 End: 10-30-2024 Anesthesia consultation 10/30/2024 6:30 AM EST Anesthesia Event Admitting [address] [id number] Domenic Presley, [address] [place] [address] Admitting Start: 10-30-2024 End: 10-30-2024 Patient encounter procedure 10/30/2024 5:45 AM EST Office Visit Cardiology [address] [id number] COMMERCIAL TF- TAVR S3 vs ROMEL Cardiology Comment on above: COMMERCIAL TF- TAVR S3 vs ROMEL Start: 10-30-2024 End: 10-30-2024 Admission to same day surgery center Admitting Comment on above: TRANSCATHETER AORTIC VALVE REPLACEMENT ( TAVR/ESAU) W/ PROSTHETIC VALVE PERCUTANEOUS FEMORAL ARTERY APPROACH Start: 10-30-2024 End: 10-30-2024 ambulatory 10/30/2024 5:30 AM EST Procedure Cardiology [address] [id number] COMMERCIAL TF- TAVR S3 vs ROMEL Cardiology Comment on above: COMMERCIAL TF- TAVR S3 vs ROMEL Start: 10-30-2024 End: 10-30-2024 Replace aortic valve perq femoral artry approach [facility] CT & VAS Start: 10-30-2024 Subsequent hospital visit by physician Admitting Comment on above: COMMERCIAL TF- TAVR S3 vs Roni URENA on: 10/30/2024 at 5:30 am Start: 10-29-2024 End: 01-28-2025 CBC panel - Blood by Automated count COMPLETE BLOOD COUNT Lab Routine Nonrheumatic aortic valve 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) Expected: 10/29/2024, Expires: 01/28/2025 [facility] Comment on above: Expected: 10/29/2024, Expires: Start: 10-29-2024 End: 01-28-2025 CBC W Auto Differential panel - Blood COMPLETE BLOOD COUNT AND DIFFERENTIAL Lab STAT Nonrheumatic aortic valve stenosis Aortic valve disorder Expected: 10/29/2024 (Approximate), Expires: 01/28/2025 [facility] Comment on above: Expected: 10/29/2024 (Approximate), Expi res: 01/28/2025 Start: 10-29-2024 End: 01-28-2025 Comprehensive metabolic 2000 panel - Serum or Plasma [facility] Comment on above: Expected: 10/29/2024 (Approximate), Expi res: 01/28/2025 Expected: 10/29/2024 , Expires: 01/28/2025 Start: 10-29-2024 End: 01-28-2025 CONFIRM BLOOD TYPE CONFIRM BLOOD TYPE Blood Bank STAT Nonrheumatic aortic valve stenosis Aortic valve disorder Expected: 10/29/2024 (Approximate), Expires: 01/28/2025 [facility] Comment on above: Expected: 10/29/2024 (Approximate), Expi res: 01/28/2025 Start: 10-29-2024 End: 01-28-2025 HIGH SENSITIVITY TROPONIN T HIGH SENSITIVITY TROPONIN T Lab STAT Nonrheumatic aortic valve stenosis Aortic valve disorder Expected: 10/29/2024 (Approximate), Expires: 01/28/2025 [facility] Comment on above: Expected: 10/29/2024 (Approximate), Expi res: 01/28/2025 Start: 10-29-2024 End: 01-28-2025 Lipoprotein a [Mass/volume] in Serum or Plasma LIPOPROTEIN (A) Lab STAT Nonrheumatic aortic valve stenosis Aortic valve disorder Expected: 10/29/2024 (Approximate), Expires: 01/28/2025 [facility] Comment on above: Expected: 10/29/2024 (Approximate), Expi res: 01/28/2025 Start: 10-29-2024 End: 01-28-2025 Natriuretic peptide.B prohormone N-Terminal [Mass/volume] in Serum or Plasma [facility] Comment on above: Expected: 10/29/2024 (Approximate), Expi res: 01/28/2025 Expected: 10/29/2024 , Expires: 01/28/2025 Start: 10-29-2024 End: 01-28-2025 PT panel - Platelet poor plasma by Coagulation assay PROTHROMBIN TIME Lab STAT Nonrheumatic aortic valve stenosis Aortic valve disorder Expected: 10/29/2024 (Approximate), Expires: 01/28/2025 [facility] Work Phone: Comment on above: Expected: 10/29/2024 (Approximate), Expi res: 01/28/2025 Start: 10-29-2024 End: 01-28-2025 TYPE AND SCREEN,30 DAY TYPE AND SCREEN,30 DAY Blood Bank STAT Nonrheumatic aortic valve stenosis Aortic valve disorder Expected: 10/29/2024 (Approximate), Expires: 01/28/2025 [facility] Comment on above: Expected: 10/29/2024 (Approximate), Expi res: 01/28/2025 Start: 10-29-2024 End: 10-29-2024 Patient encounter procedure Radiology Comment on above: COMMERCIAL TF- TAVR S3 vs ROMEL Start: 10-29-2024 End: 10-29-2024 [address] [facility] [place] J1-4 Dra nathen Hendricks Comment on above: COMMERCIAL TF- TAVR S3 vs ROMEL Start: 10-28-2024 Advance Directive Discussion Advance Directive Discussion [facility] Start: 10-28-2024 Medicare Advantage Annual Wellness Visit Medicare Advantage Annual Wellness Visit [facility] Start: 09-09-2024 End: 09-09-2024 ambulatory Pulmonary Medicine Comment on above: New TAVR Workup Start: 09-09-2024 End: 09-09-2024 Patient encounter procedure Cardiothorac ic Comment on above: New TAVR Workup NM SPECT/CT CARDIAC AMYLOID Start: 09-03-2024 End: 09-03-2024 Admission to same day surgery center 09/03/2024 4:45 PM EST - 09/03/2024 5:42 PM EST Surgery HOSP Manager Channel [address] [place] [address] [place] [address] [place] [address]ON[address] W IMAGE INJECT & INTERP W LT HEART CATH W INJECT LT VENTRGRAPHY HOSP Manager Channel Comment on above: CORONARY ANGIO W CATH PLACE W IMAGE INJE CT & INTERP W LT HEART CATH W INJECT LT VENTRGRAPHY Start: 09-03-2024 End: 09-03-2024 Cath plmt l hrt & arts w/njx & angio img s&i CORONARY ANGIO W CATH PLACE W IMAGE INJECT & INTERP W LT HEART CATH W INJECT LT VENTRGRAPHY Nonrheumatic aortic valve stenosis 09/03/2024 4:45 PM EST 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 0] Start: 09-03-2024 End: 09-03-2024 Patient encounter procedure 09/03/2024 1:00 PM EST Office Visit Admitting [address] [place] [address] ADMIT Admitting Comment on above: ADMIT Start: 09-03-2024 End: 09-03-2024 ambulatory Cardiology Comment on above: New TAVR Workup Start: 07-28-2024 End: 07-28-2024 Patient encounter procedure 07/28/2024 1:15 PM EDT Office Visit OPHT Ophthalmology [address] [address] Wali Triana MD [address] [id number] Follow up per patient Ophthalmology Comment on above: Follow up per patient Start: 06-28-2024 Covid-19 Vaccine ( season) Covid-19 Vaccine ( season) [facility] Start: 06-28-2024 Influenza vaccination [facility] Start: 06-22-2024 End: 09-21-2024 CBC W Auto Differential panel - Blood COMPLETE BLOOD COUNT AND DIFFERENTIAL Lab Routine Severe aortic stenosis by prior echocardiogram Encounter for preprocedural cardiovascular examination Aortic valve disorder Expected: 06/22/2024 (Approximate), Expires: 09/21/2024 [facility] Comment on above: Expected: 06/22/2024 (Approximate), Expi res: 09/21/2024 Start: 06-22-2024 End: 09-21-2024 Comprehensive metabolic 2000 panel - Serum or Plasma COMPREHENSIVE METABOLIC PANEL Lab Routine Severe aortic stenosis by prior echocardiogram Encounter for preprocedural cardiovascular examination Aortic valve disorder Expected: 06/22/2024 (Approximate), Expires: 09/21/2024 [facility] Comment on above: Expected: 06/22/2024 (Approximate), Expi res: 09/21/2024 Start: 06-22-2024 End: 09-21-2024 HIGH SENSITIVITY TROPONIN T HIGH SENSITIVITY TROPONIN T Lab Routine Severe aortic stenosis by prior echocardiogram Encounter for preprocedural cardiovascular examination Aortic valve disorder Expected: 06/22/2024 (Approximate), Expires: 09/21/2024 [facility] Comment on above: Expected: 06/22/2024 (Approximate), Expi res: 09/21/2024 Start: 06-22-2024 End: 09-21-2024 Lipoprotein a [Mass/volume] in Serum or Plasma LIPOPROTEIN (A) Lab Routine Severe aortic stenosis by prior echocardiogram Encounter for preprocedural cardiovascular examination Aortic valve disorder Expected: 06/22/2024 (Approximate), Expires: 09/21/2024 [facility] Comment on above: Expected: 06/22/2024 (Approximate), Expi res: 09/21/2024 Start: 06-22-2024 End: 09-21-2024 Natriuretic peptide.B prohormone N-Terminal [Mass/volume] in Serum or Plasma NT PRO BNP Lab Routine Severe aortic stenosis by prior echocardiogram Encounter for preprocedural cardiovascular examination Aortic valve disorder Expected: 06/22/2024 (Approximate), Expires: 09/21/2024 [facility] Comment on above: Expected: 06/22/2024 (Approximate), Expi res: 09/21/2024 Start: 06-09-2024 End: 09-08-2024 CREATININE BLD CREATININE BLD Lab Routine Severe aortic stenosis by prior echocardiogram Encounter for preprocedural cardiovascular examination Aortic valve disorder Expected: 06/09/2024, Expires: 09/08/2024 [facility] Comment on above: Expected: 06/09/2024, Expires: Start: 05-26-2024 End: 05-26-2024 Patient encounter procedure Ophthalmolog y Comment on above: 1 MONTH 1 MONTH va iop mrx o u dfe operative eye Start: 04-28-2024 End: 04-28-2024 Patient encounter procedure 04/28/2024 3:30 PM EDT Office Visit Cardiology [address] [place] [address] Aortic valve stenosis, etiology of cardiac valve disease unspecified [I35.0] Cardiology Comment on above: Aortic valve stenosis, etiology of cardi ac valve disease unspecified [I35.0] Start: 04-28-2024 End: 07-28-2024 Natriuretic peptide.B prohormone N-Terminal [Mass/volume] in Serum or Plasma [facility] Work Phone: Comment on above: Expected: 04/28/2024, Expires: Start: 04-28-2024 End: 04-28-2024 Patient encounter procedure 04/28/2024 1:45 PM EDT Office Visit Cardiology [address] [phone] James Lindo MD [address] [place] [address] Aortic valve stenosis, etiology of cardiac valve disease unspecified [I35.0] Cardiology Comment on above: Aortic valve stenosis, etiology of cardi ac valve disease unspecified [I35.0] Start: 04-28-2024 End: 04-28-2024 ambulatory 04/28/2024 1:00 PM EDT Results Only Cardiology [address] [place] [address] Aortic valve stenosis, etiology of cardiac valve disease unspecified [I35.0] Cardiology Comment on above: Aortic valve stenosis, etiology of cardi ac valve disease unspecified [I35.0] Start: 04-21-2024 End: 04-21-2024 Patient encounter procedure 04/21/2024 1:15 PM EDT Office Visit [facility] Ophthalmology [address] [address] Wali Triana MD [address] [place] [address] POD1 Ophthalmology Comment on above: POD1 Start: 04-20-2024 End: 04-20-2024 Admission to same day surgery center Ophthalmology Comment on above: PHACOEMULSIFICATION CATARACT IMPLANT INT RAOCULAR LENS W/O ENDOSCOPIC CYCLOPHOTOCOAGULATION Start: 04-20-2024 Subsequent hospital visit by physician Ophthalmology Comment on above: Total, mature senile cataract [H25.89] Start: 04-20-2024 End: 04-20-2024 Xcapsl ctrc rmvl insj io lens prosth w/o ecp [facility] Start: 04-15-2024 End: 04-15-2024 Patient encounter procedure 04/15/2024 11:20 AM EDT Office Visit Cardiology [address] [place] [address] Aortic valve stenosis, etiology of cardiac valve disease unspecified [I35.0] Cardiology Comment on above: Aortic valve stenosis, etiology of cardi ac valve disease unspecified [I35.0] Start: 04-10-2024 End: 04-10-2024 Patient encounter procedure 04/10/2024 2:30 PM EDT Office Visit Vascular Medicine [address] [place] [address] Aortic valve stenosis, etiology of cardiac valve disease unspecified [I35.0] Vascular Medicine Comment on above: Aortic valve stenosis, etiology of cardi ac valve disease unspecified [I35.0] Start: 10-28-2023 Advance Directive Discussion Advance Directive Discussion [facility] Start: 10-28-2023 Behavioral Health Screening Behavioral Health Screening [facility] Start: 10-28-2023 Depression Assessment Depression Assessment [facility] Start: 06-28-2023 Covid-19 Vaccine () Covid-19 Vaccine () [facility] Start: 06-28-2023 Influenza vaccination Influenza Vaccine (#1) [facility] Start: 03-24-2022 Diabetes Screening Diabetes Screening [facility] Start: 07-14-2019 Hepatitis B surface antibody level LDL Cholesterol [facility] Start: 10-30-2014 Urine microalbumin profile DTaP,Tdap,Td Vaccine (1 - Tdap) [facility] Start: 2014 RSV Vaccine (1 - 1-dose 75+ series) RSV Vaccine (1 - 1-dose 75+ series) [facility] Start: 2004 Pneumococcal Vaccine: 65+ (1 of 1 - PCV) Pneumococcal Vaccine: 65+ (1 of 1 - PCV) [facility] Start: 2004 Screening for osteoporosis Bone Density Screening [facility] Start: 1999 RSV Vaccine (1 - 1-dose 60+ series) RSV Vaccine (1 - 1-dose 60+ series) [facility] Start: 1989 Shingrix Vaccine (1 of 2) Shingrix Vaccine (1 of 2) [facility] Start: 1958 Pneumococcal Vaccine: 50+ (1 of 2 - PCV) Pneumococcal Vaccine: 50+ (1 of 2 - PCV) [facility] Start: 1957 Anxiety Screening Anxiety Screening [facility] Start: 1957 Depression Screening Depression Screening [facility] Anion gap in Serum or Plasma [facility] Anion gap in Serum or Plasma [facility] Anion gap in Serum or Plasma [facility] BUN/Creatinine ratio [facility] BUN/Creatinine ratio [facility] BUN/Creatinine ratio [facility] Calcium [Mass/volume ] in Serum or Plasma [facility] Calcium [Mass/volume ] in Serum or Plasma [facility] Calcium [Mass/volume ] in Serum or Plasma [facility] Carbon dioxide, tota l [Moles/volume] in Central venous blood [facility] Carbon dioxide, tota l [Moles/volume] in Central venous blood [facility] Carbon dioxide, tota l [Moles/volume] in Central venous blood [facility] Cardiac event recording [facility] CARDIAC REHAB II [place] PT ([place] CARDIAC REHAB II OUTPT ([place], [place]) BIC Routine S/P TAVR (transcatheter aortic valve replacement) Ordered: 11/10/2024 [facility] Work Phone: Comment on above: Ordered: 11/10/2024 CARDIAC REHAB II OUT PT ([place] CARDIAC REHAB II [place]PT ([place], [place]) BIC Routine Mixed hyperlipidemia Essential (primary) hypertension 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) Severe aortic stenosis Ordered: 12/23/2024 [facility] Work Phone: Comment on above: Ordered: 12/23/2024 Creatinine [Mass/vol ume] in Serum or Plasma [facility] Creatinine [Mass/vol ume] in Serum or Plasma [facility] Creatinine [Mass/vol ume] in Serum or Plasma [facility] End: 01-22-2026 CT Heart W contrast IV CT CARDIAC W IVCON Radiology Routine Mixed hyperlipidemia Essential (primary) hypertension 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) Severe aortic stenosis 1 Occurrences starting 12/23/2024 until 01/22/2026 [facility] Comment on above: 1 Occurrences starting 12/23/2024 until 01/22/2026 End: 07-09-2025 CTA Chest vessels and Abdominal vessels and Pelvis vessels W contrast IV CTA CHEST/ABD/PEL (GATED) W IVCON Radiology Routine Severe aortic stenosis by prior echocardiogram Encounter for preprocedural cardiovascular examination Aortic valve disorder 1 Occurrences starting 06/09/2024 until 07/09/2025 [facility] Comment on above: 1 Occurrences starting 06/09/2024 until 07/09/2025 End: 04-28-2025 ECG COMPLETE ECG COMPLETE ECG Routine Non-rheumatic aortic stenosis 1 Occurrences starting 04/28/2024 until 04/28/2025 [facility] Comment on above: 1 Occurrences starting 04/28/2024 until 04/28/2025 End: 06-09-2025 ECG COMPLETE ECG COMPLETE ECG Routine Severe aortic stenosis by prior echocardiogram Encounter for preprocedural cardiovascular examination Aortic valve disorder 1 Occurrences starting 06/09/2024 until 06/09/2025 [facility] Comment on above: 1 Occurrences starting 06/09/2024 until 06/09/2025 End: 10-07-2025 ECG COMPLETE ECG COMPLETE ECG Routine Nonrheumatic aortic valve stenosis Aortic valve disorder 1 Occurrences starting 10/07/2024 until 10/07/2025 [facility] Comment on above: 1 Occurrences starting 10/07/2024 until 10/07/2025 End: 10-29-2025 ECG COMPLETE ECG COMPLETE ECG Routine Nonrheumatic aortic valve 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) 1 Occurrences starting 10/29/2024 until 10/29/2025 [facility] Comment on above: 1 Occurrences starting 10/29/2024 until 10/29/2025 End: 03-04-2026 ECG COMPLETE ECG COMPLETE ECG Routine S/P TAVR (transcatheter aortic valve replacement) Severe aortic stenosis 1 Occurrences starting 03/04/2025 until 03/04/2026 [facility] Comment on above: 1 Occurrences starting 03/04/2025 until 03/04/2026 End: 04-08-2025 Echocardiography ECHO Cardiology Routine Aortic valve stenosis, etiology of cardiac valve disease unspecified Preop examination 1 Occurrences starting 04/08/2024 until 04/08/2025 [facility] Work Phone: Comment on above: 1 Occurrences starting 04/08/2024 until 04/08/2025 End: 04-28-2025 Echocardiography ECHO Cardiology Routine Non-rheumatic aortic stenosis 1 Occurrences starting 04/28/2024 until 04/28/2025 [facility] Comment on above: 1 Occurrences starting 04/28/2024 until 04/28/2025 End: 10-29-2025 Echocardiography ECHO Cardiology Routine Nonrheumatic aortic valve 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) 1 Occurrences starting 10/29/2024 until 10/29/2025 [facility] Work Phone: Comment on above: 1 Occurrences starting 10/29/2024 until 10/29/2025 End: 03-04-2026 Echocardiography ECHO Cardiology Routine S/P TAVR (transcatheter aortic valve replacement) Severe aortic stenosis 1 Occurrences starting 03/04/2025 until 03/04/2026 [facility] Work Phone: Comment on above: 1 Occurrences starting 03/04/2025 until 03/04/2026 Erythrocyte mean cor puscular volume determination [facility] Erythrocyte mean cor puscular volume determination [facility] Erythrocyte mean cor puscular volume determination [facility] Erythrocyte mean cor puscular volume determination [facility] Glucose [Mass/volume ] in Serum or Plasma [facility] Glucose [Mass/volume ] in Serum or Plasma [facility] Glucose [Mass/volume ] in Serum or Plasma [facility] Hematocrit [Volume F raction] of Blood [facility] Hematocrit [Volume F raction] of Blood [facility] Hematocrit [Volume F raction] of Blood [facility] Hematocrit [Volume F raction] of Blood [facility] Hemoglobin [Mass/vol ume] in Blood [facility] Hemoglobin [Mass/vol ume] in Blood [facility] Hemoglobin [Mass/vol ume] in Blood [facility] Hemoglobin [Mass/vol ume] in Blood [facility] Leukocytes [#/volume ] in Blood [facility] Leukocytes [#/volume ] in Blood [facility] Leukocytes [#/volume ] in Blood [facility] Leukocytes [#/volume ] in Blood [facility] End: 07-09-2025 LUNG DIFFUSION CAPACITY (DLCO) LUNG DIFFUSION CAPACITY (DLCO) PFT Routine Severe aortic stenosis by prior echocardiogram Encounter for preprocedural cardiovascular examination Aortic valve disorder 1 Occurrences starting 06/09/2024 until 07/09/2025 [facility] Comment on above: 1 Occurrences starting 06/09/2024 until 07/09/2025 LUNG DIFFUSION CAPAC ITY (DLCO) LUNG DIFFUSION CAPACITY (DLCO) PFT Routine Severe aortic stenosis by prior echocardiogram Encounter for preprocedural cardiovascular examination Aortic valve disorder 09/09/2024 12:10 PM EST [facility] Work Phone: Mean corpuscular hem oglobin concentration determination [facility] Mean corpuscular hem oglobin concentration determination [facility] Mean corpuscular hem oglobin concentration determination [facility] Mean corpuscular hem oglobin concentration determination [facility] Mean corpuscular hem oglobin determination [facility] Mean corpuscular hem oglobin determination [facility] Mean corpuscular hem oglobin determination [facility] Mean corpuscular hem oglobin determination [facility] Measurement of renal function [facility] Measurement of renal function [facility] Measurement of renal function [facility] Neutrophil count [facility] Neutrophil count [facility] Neutrophil count [facility] Neutrophil count [facility] Neutrophil percent differential count [facility] Neutrophil percent differential count [facility] Neutrophil percent differential count [facility] Neutrophil percent differential count [facility] Platelets [#/volume] in Blood [facility] Platelets [#/volume] in Blood [facility] Platelets [#/volume] in Blood [facility] Platelets [#/volume] in Blood [facility] Potassium measurement [facility] Potassium measurement [facility] Potassium measurement [facility] Red blood cell count [facility] Red blood cell count [facility] Red blood cell count [facility] Red blood cell count [facility] RED BLOOD CELLS, ADULT RED BLOOD CELLS, ADULT Blood Bank Routine Nonrheumatic aortic valve stenosis Ordered: 10/29/2024 [facility] Work Phone: Comment on above: Ordered: 10/29/2024 Red cell distributio n width determination [facility] Red cell distributio n width determination [facility] Red cell distributio n width determination [facility] Red cell distributio n width determination [facility] Serum chloride measurement [facility] Serum chloride measurement [facility] Serum chloride measurement [facility] Sodium measurement [facility] Sodium measurement [facility] Sodium measurement [facility] End: 07-09-2025 SPECT Heart for infarct W Tc-99m PYP IV NM SPECT/CT CARDIAC AMYLOID Radiology Routine Severe aortic stenosis by prior echocardiogram Encounter for preprocedural cardiovascular examination Aortic valve disorder 1 Occurrences starting 06/09/2024 until 07/09/2025 [facility] Comment on above: 1 Occurrences starting 06/09/2024 until 07/09/2025 End: 07-09-2025 SPIROMETRY BASELINE ONLY SPIROMETRY BASELINE ONLY PFT Routine Severe aortic stenosis by prior echocardiogram Encounter for preprocedural cardiovascular examination Aortic valve disorder 1 Occurrences starting 06/09/2024 until 07/09/2025 [facility] Work Phone: Comment on above: 1 Occurrences starting 06/09/2024 until 07/09/2025 SPIROMETRY BASELINE ONLY SPIROME TRY BASELINE ONLY PFT Routine Severe aortic stenosis by prior echocardiogram Encounter for preprocedural cardiovascular examination Aortic valve disorder 09/09/2024 12:10 PM EST [facility] Work Phone: Urea nitrogen [Mass/ volume] in Serum or Plasma [facility] Urea nitrogen [Mass/ volume] in Serum or Plasma [facility] Urea nitrogen [Mass/ volume] in Serum or Plasma [facility] US Carotid arteries - bilateral US CAROTID ARTERIES [facility] Vascular Lab Routine Severe aortic stenosis by prior echocardiogram Encounter for preprocedural cardiovascular examination Aortic valve disorder Ordered: 06/09/2024 [facility] Comment on above: Ordered: 06/09/2024 End: 03-02-2026 US Lower extremity artery - bilateral [facility] Work Phone: Comment on above: 1 Occurrences starting 03/02/2025 until 03/02/2026 End: 10-30-2025 US.doppler Extremity arteries - bilateral for physiologic artery study PVR ANK PRESS [facility] Vascular Lab Routine PAD (peripheral artery disease) ([facility]) 1 Occurrences starting 10/30/2024 until 10/30/2025 [facility] Comment on above: 1 Occurrences starting 10/30/2024 until 10/30/2025 End: 03-02-2026 US.doppler Extremity arteries - bilateral for physiologic artery study PVR ANK PRESS [facility] Vascular Lab Routine S/P TAVR (transcatheter aortic valve replacement) Chronic diastolic congestive heart failure (HCC) Coronary artery disease involving [place] coronary artery of [place] heart with angina pectoris Mixed hyperlipidemia Essential (primary) hypertension 1 Occurrences starting 03/02/2025 until 03/02/2026 [facility] Comment on above: 1 Occurrences starting 03/02/2025 until 03/02/2026 End: 07-09-2025 XR Chest PA and Lateral XR CHEST 2V FRONTAL/LAT Radiology Routine Severe aortic stenosis by prior echocardiogram Encounter for preprocedural cardiovascular examination Aortic valve disorder 1 Occurrences starting 06/09/2024 until 07/09/2025 [facility] Comment on above: 1 Occurrences starting 06/09/2024 until 07/09/2025 End: 11-06-2025 XR Chest PA and Lateral XR CHEST 2V FRONTAL/LAT Radiology Routine Nonrheumatic aortic valve stenosis Aortic valve disorder 1 Occurrences starting 10/07/2024 until 11/06/2025 [facility] Comment on above: 1 Occurrences starting 10/07/2024 until 11/06/2025 [facility] EYE INS TITUTE Immunizations Immunization Date Immunization Notes Care Provider Fa kenzie 05-23-2021 tetanus toxoid, redu doug diphtheria toxoid, and acellular pertussis vaccine, adsorbed [facility] 09-08-2020 influenza, injectabl e, quadrivalent, preservative free Dr. Eh Huddleston MD Work Phone: [facility] 07-10-2019 hepatitis A vaccine, adult dosage Dr. Eh Huddleston MD Work Phone: [facility] 07-10-[address] Eh Huddleston MD Work Phone: [facility] 12-03-2017 influenza, injectabl e, quadrivalent, preservative free Dr. Eh Huddleston MD Work Phone: [facility] 10-29-2014 tetanus and diphther ia toxoids, adsorbed, preservative free, for adult use (2 Lf of tetanus toxoid and 2 Lf of diphtheria toxoid) Dr. Eh Huddleston MD Work Phone: [facility] 10-29-2014 tetanus and diphther ia toxoids, adsorbed, preservative free, for adult use (5 Lf of tetanus toxoid and 2 Lf of diphtheria toxoid) Ultrasound Main Work Phone: [facility] Payers Date Payer Category Payer Self-pay [id number] 2013 Medicare HUMANA MEDICARE HUMANA MEDICARE PPO [id number] 2013-Present [phone] [place] [address] PPO [id number] 2013 Medicare (Managed Care) HUMANA M EDICARE [id number] 2013 Medicare [id number] Unknown [id number] 2.16.840.1.549250.3.579. 2.462 Unknown [id number] 2.16840.1.771284.3.579. 2.462 Unknown [id number] 2.16840.1.287342.3.579. 2.462 Unknown [id number] 2.16.840.1.995347.3.579. 2.462 Unknown [id number] 2.16.840.1.266137.3.579. 2.462 Unknown [id number] 2.16.840.1.828536.3.579. 2.462 Unknown [id number] 2.16.840.1.990922.3.579. 2.462 Unknown [id number] 2.16.840.1.036395.3.579. 2.462 Unknown [id number] 2.16.840.1.577866.3.579. 2.462 Unknown [id number] 2.16.840.1.697620.3.579. 2.462 Unknown [id number] 2.16.840.1.615138.3.579. 2.462 Unknown [id number] 2.16840.1.563961.3.579. 2.462 Unknown [id number] 2.16840.1.554117.3.579. 2.462 Unknown [id number] 2.16840.1.620648.3.579. 2.462 Unknown [id number] 2.16840.1.404698.3.579. 2.462 Unknown [id number] 2.840.1.636733.3.579. 2.462 Unknown [id number] 2.840.1.088359.3.579. 2.462 Unknown [id number] 2.840.1.986801.3.579. 2.462 Unknown [id number] 2.840.1.340719.3.579. 2.462 Unknown [id number] 2.840.1.688298.3.579. 2.462 Unknown [id number] 2.840.1.421759.3.579. 2.462 Unknown [id number] 2.840.1.453219.3.579. 2.462 Unknown [id number] 2.840.1.472833.3.579. 2.462 Unknown [id number] 2.840.1.999679.3.579. 2.462 Unknown [id number] 2.840.1.794574.3.579. 2.462 Unknown [id number] 2.840.1.302442.3.579. 2.462 Unknown [id number] 2.840.1.215599.3.579. 2.462 Unknown [id number] 2.840.1.341787.3.579. 2.462 Unknown [id number] 2.16.840.1.658018.3.579. 2.462 Unknown [id number] 2.16.840.1.551708.3.579. 2.462 Unknown [id number] 2.16.840.1.544647.3.579. 2.462 Unknown [id number] 2.16.840.1.377668.3.579. 2.462 Unknown [id number] 2.16.840.1.314395.3.579. 2.462 Unknown [id number] 2.16.840.1.887172.3.579. 2.462 Unknown [id number] 2.16.840.1.087678.3.579. 2.462 Unknown [id number] 2.16.840.1.469874.3.579. 2.462 Unknown [id number] 2.16.840.1.972342.3.579. 2.462 Unknown [id number] 2.16.840.1.245028.3.579. 2.462 Unknown [id number] 2.16.840.1.791706.3.579. 2.462 Unknown [id number] 2.16.840.1.075182.3.579. 2.462 Unknown [id number] 2.16.840.1.704614.3.579. 2.462 Social History Date Type Detail Facility Start: 07-04-2021 End: 09-10-2023 Tobacco smoking status GAIS Unknown if ever smoked [facility] Start: 11-26-2017 None [facility] Start: 11-26-2017 Spouse/ Signif icant Other [facility] Start: 1940 Sex Assigned At Female [facility] Start: 01-16-2024 End: 05-07-2025 Tobacco smoking status NHIS Never smoked tobacco [facility] Start: 01-16-2024 Tobacco use and exposure Smokeless tobacco non-user [facility] Start: 01-16-2024 End: 11-10-2024 Alcohol intake Lifetime non-drinker (finding) [facility] Start: 01-16-2024 End: 04-06-2024 History of Social function [facility] Start: 01-16-2024 End: 04-06-2024 Tobacco use panel [facility] Start: 09-28-2012 National Score (1-100), lower number is lower risk 48 [facility] Start: 1940 Sex Assigned At Not on file [facility] Start: 09-25-2024 Gender identity Identifies as female gender (finding) [facility] Start: 01-21-2025 End: 01-26-2025 Sex Female (finding) [facility] Start: 05-14-2025 End: 05-14-2025 Tobacco smoking status NHIS Smoker (finding) [facility] NEGATED: Highlighted row Not [facility] Medical Equipment Procedure Code Equipment Code [...] FDA Start: 05-09-2025 ORIF, fracture, femur, distal ([id number]) [id number] FDA Start: 05-09-2025 ORIF, fracture, femur, distal [...] Start: 05-09-2025 [id number].235 Radha on Uva - [id number] Start: 04-20-2024 Device Proglide Perclose 6fr Closure Suture Mediate Knot Pusher Sterile - [id number] Start: 10-30-2024 Device Proglide Perclose 6fr Closure Suture Mediate Knot Pusher Sterile - [id number] Start: 10-30-2024 Device Proglide Perclose 6fr Closure Suture Mediate Knot Pusher Sterile - [id number] Start: 10-30-2024 Device Proglide Perclose 6fr Closure Suture Mediate Knot Pusher Sterile - [id number] Start: 10-30-2024 Valve Newell Jerry 3 Ultra System 23mm - [id number] Start: 10-30-2024 Bx2 6ppv68yu 7fr 135cm Cath Bx2 Hep Reduced Profile - [id number] Start: 10-30-2024 Goals Date Patient Goal Desired Activity /State Personal health goal Functional Status Date Assessment Result Facility 06-07-2025 Functional status Bedrest [facility] Work Phone: 06-06-2025 Functional status Standard Walker [facility] Work Phone: 06-05-2025 Functional status Well [facility] Work Phone: 05-27-2025 Functional status Chair [facility] Work Phone: 05-14-2025 Functional status Unable to Assess [facility] Work Phone: 05-14-2025 Functional status Chair [facility] Work Phone: 11-01-2024 Are you deaf, or do you have serious difficulty hearing No 11/01/2024 9:56 AM Amrita Best, LOULOU No [facility] 11-01-2024 Are you blind, or do you have serious difficulty seeing, even when wearing glasses Yes 11/01/2024 9:56 AM Amrita Best, LOULOU Yes [facility] 11-01-2024 Do you have serious difficulty walking or climbing stairs No 11/01/2024 9:56 AM Amrita Best RN No [facility] 11-01-2024 Do you have difficul ty dressing or bathing No 11/01/2024 9:56 AM Amrita Best, LOULOU No [facility] 11-01-2024 Because of a physica l, mental, or emotional condition, do you have difficulty doing errands alone such as visiting a physician's office or shopping No 11/01/2024 9:56 AM Amrita Best, LOULOU No [facility] Mental Status Date Assessment Result Facility 06-07-2025 Cognitive function Voice/Name [facility] Work Phone: 05-29-2025 Cognitive function Appropriate;C [facility] Work Phone: 05-27-2025 Cognitive function Voice/Name [facility] Work Phone: 05-26-2025 Cognitive function Appropriate;C [facility] Work Phone: 05-14-2025 Cognitive function Voice/Name [facility] Work Phone: 11-01-2024 Because of a physica l, mental, or emotional condition, do you have serious difficulty concentrating, remembering, or making decisions No 11/01/2024 9:56 AM mArita Best RN No [facility] Clinical Notes 01-16-2024 to 06-04-2025 Note Date & Type Note Facility 06-04-2025 Discharge summary Note Date/Time June 04, 2025 2:57pm [facility] Medical Records Department [address] [place] [address] Transfer to [facility] Care MR#: [id number] Acct: [id number] Name: GOGO WARE p #:[id number] : 1940 85 From: Eh Huddleston MD PCP: Dr. Eh Huddleston MD Status:ADM I N Certification of patient admission REQUIRED AT TIME OF ADMISSION. I CERTIFY THAT POST-HOSPITAL ECF SERVICES ARE REQUIRED TO BE GIVEN ON AN IN-PATIENT BASIS BECAUSE OF THE ABOVE NAMED PATIENT'S NEED FOR RESIDENTIAL CARE ON A CONTINUING BASIS FOR THE CONDITION(S) FOR WHICH HE/SHE WAS RECEIVING IN-PATIENT HOSPITAL SERVICES PRIOR TO HIS/HER TRANSFER TO THE ECF. 06/04/25 1457<Electronically signed by Eh Huddleston MD> Diet Diet [...] Additional Instructions / Restrictions: Discharge 06/07/2025 to [facility], intermediate, part B therapies. Discharge Orders/Prescriptions Prescriptions: [...] before D/C Order can be placed): NonSkilled GA/Intermed Care 06/04/25 1457 <Electronically signed by Eh Huddleston MD> Cosigner Signature (if applicable): CC: Dr. Katelyn Kuhn MD; Dr. Eh Huddleston MD ~ [facility] Work Phone: 1(215) 537-231608-08-2025 Discharge summary Author [facility] Note Date/Time June 04, 2025 2:5 6pm [facility] Medical Records Department [address] [place] [address] Discharge Summary 06/04/25 1448 MR#: [id number] Acct: [id number] Name: GOGO WARE p #:[id number] : 1940 85 From: Eh Huddleston MD PCP: Dr. Eh Huddleston MD Status:ADM I N Location: [place] [address]- Providers Date of Admission: 05/14/25 Primary Care [...] q6 x 10 days. Discharge 06/07/2025 to [facility], [facility], part B therapies. Physical Exam Const [...] % (Auto) 62.9, Lymph % (Auto) 19.7, [place] % (Auto) 11.2 H, Eos % (Auto) [...] 11:10 IMPRESSION: No acute abnormality Reading Location: [id number] D/C Instructions Discharge Activity: Return to Normal [...] instructions: No Additional Instructions: Discharge 06/07/2025 to [facility], intermediate, part B therapies. Please Follow Up With: Dr. Livingston When: As scheduled. Meaningful Use Info Meaningful Use Meaningful Use Diagnoses (Choose all that apply): None applicable Discharge Plan Admission Admit Date/Time: 05/14/25 14:44 Primary Reason for Your Visit: Debility. Attending Provider: Eh Huddleston Chi Primary Care Provider: Eh Huddleston Chi Consulting Providers: Katelyn Kuhn Instructions Additional Instructions / Restrictions: Discharge 06/07/2025 to [facility], intermediate, part B therapies. Discharge Orders/Prescriptions Prescriptions: [...] before D/C Order can be placed): NonSkilled GA/Intermed Care 06/04/25 1456 <Electronically signed by Eh Huddleston MD> Cosigner Signature (if applicable): CC: Dr. Eh Huddleston MD~ Signed [facility] Work Phone: 1(837) 316-341208-08-2025 Discharge summary [facility] Medical Records Department [address] [place] [address] Transfer to [facility] MR#: [id number] Acct: [id number] Name: GOGO WARE Heidi p #:[id number] : 1940 85 From: Eh Huddleston MD PCP: Dr. Eh Huddleston MD Status:ADM I N Certification of patient admission REQUIRED AT TIME OF ADMISSION. I CERTIFY THAT POST-HOSPITAL ECF SERVICES ARE REQUIRED TO BE GIVEN ON AN IN-PATIENT BASIS BECAUSE OF THE ABOVE NAMED PATIENT'S NEED FOR RESIDENTIAL CARE ON A CONTINUING BASIS FOR THE CONDITION(S) FOR WHICH HE/SHE WAS RECEIVING IN-PATIENT HOSPITAL SERVICES PRIOR TO HIS/HER TRANSFER TO THE F. 06/04/25 1457 Diet Diet Order/Speech Therapy: INPATIENT [...] Additional Instructions / Restrictions: Discharge 06/07/2025 to [facility], intermediate, part B therapies. Discharge Orders/Prescriptions Prescriptions: [...] Kuhn MD; Dr. Eh Huddleston MD ~ [facility]08-08-2025 Discharge summary [facility] Medical Records Department [address] [place] [address] Discharge Summary 06/04/25 1448 MR#: [id number] Acct: [id number] Name: GOGO WARE p #:[id number] : 1940 85 From: Eh Huddleston MD PCP: Dr. Eh Huddleston MD Status:ADM I N Location: [facility] [place] [address] Providers Date of Admission: 05/14/25 Primary Care [...] drops 1 drp ophthalmic (eye) QPM glaucoma 02/20/20 carvedilol 12.5 mg tablet 12.5 mg PO [...] q6 x 10 days. Discharge 06/07/2025 to [facility], intermediate, part B therapies. Physical Exam Const [...] % (Auto) 62.9, Lymph % (Auto) 19.7, [place] % (Auto) 11.2 H, Eos % (Auto) [...] 11:10 IMPRESSION: No acute abnormality Reading Location: [id number] D/C Instructions Discharge Activity: Return to Normal [...] instructions: No Additional Instructions: Discharge 06/07/2025 to [facility], intermediate, part B therapies. Please Follow Up With: Dr. Livingston When: As scheduled. Meaningful Use Info Meaningful Use Meaningful Use Diagnoses (Choose all that apply): None applicable Discharge Plan Admission Admit Date/Time: 05/14/25 14:44 Primary Reason for Your Visit: Debility. Attending Provider: Eh Huddleston Chi Primary Care Provider: Eh Huddleston Chi Consulting Providers: Katelyn Kuhn Instructions Additional Instructions / Restrictions: Discharge 06/07/2025 to [facility], intermediate, part B therapies. Discharge Orders/Prescriptions Prescriptions: [...] before D/C Order can be placed): NonSkilled GA/Intermed Care 06/04/25 1456 Cosigner Signature (if applicable): CC: Dr. Eh Huddlseton MD~ Signed [facility]08-08-[facility]2025 Radiology Diagnostic study note [facility] Imaging Services [address] [place], [place] [address] [employer] Decub and/or Erect MR#: [id number] Acct: [id number] Name: GOGO WARE Rep #: [id number] : 1940 F 85 From: Tim Rogers MD PCP: Dr. Eh Huddleston MD Status: ADM I N Study:[employer] Decub and/or Erect Date of Exam : 06/04/25 Exam# [id number] Ordering Dr: Eh Huddleston MD PROCEDURE: ABD [...] Erect IMPRESSION: No acute abnormality Reading Location: [id number] CC: Dr. Eh Huddleston MD ~ Feed Crusher: Signed [facility]08-07-2025 Consult note Author Katelyn Kuhn [facility] Note Date/Time June 03, 2025 3:0 1pm [facility] Medical Records Department [address] [place] [address] Consultation 06/03/25 0754 MR#: [id number] Acct: [id number] Name: GOGO WARE p #:[id number] : 1940 85 From: Katelyn Millard PCP: Dr. Eh Huddleston MD Status:ADM I N Location: [place] [address] Assessment & Plan Assessment/Plan (1) Urinary retention: [...] void constantly with her catheter in place. 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 Eh Huddleston MD~ Signed [facility] Work Phone: 1(348) 666-584508-07-2025 Consult note [facility] Medical Records Department [address] [place] [address] Consultation 06/03/25 0754 MR#: [id number] Acct: [id number] Name: GOGO WARE p #:[id number] : 1940 85 From: Katelyn Millard PCP: Dr. Eh Huddleston MD Status:ADM I N Location: [place] [address] Assessment & Plan Assessment/Plan (1) Urinary retention: [...] void constantly with her catheter in place. 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 Eh Huddleston MD~ Signed [facility]08-07-2025 [facility] History and physical note Author [facility] Note Date/Time May 26, 2025 7:31 am [facility] Medical Records Department [address] [place] [address] History & Physical Exam 05/14/25 1513 MR#: [id number] Acct: [id number] Name: GOGO WARE p #:[id number] : 1940 85 From: Eh Huddleston MD PCP: Dr. Eh Huddleston MD Status:ADM I N Location: [facility] TC8-1 HPI - General General Date of Admission: 05/14/25 Date of Service: 05/14/25 Chief Complaint: Here for rehabilitation. HPI Narrative GOGO WARE, is a 85 Female who presents with followin05/07/2025 [facility] ED fall. Tripped, twisted left upper leg, fell on bilateral knees, unable to walk 2/2 left thigh pain. X-ray shows left distal femur fracture. 05/07/2025 Admit [facility]. Prepare for surgery left distal femur [...] rehabilitation, strengthening, prior to discharge home alone. 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 05/26/25 0731<Electronically signed by Eh Huddleston MD> Cosigner Signature (if applicable): cc: Dr. Eh Huddleston MD ~* Signed [facility] Work Phone: 1(406) 782-474407-30-2025 History and physical note [facility] Medical Records Department [address] [place] [address] History & Physical Exam 05/14/25 1513 MR#: [id number] Acct: [id number] Name: GOGO WARE p #:[id number] : 1940 85 From: Eh Huddleston MD PCP: Dr. Eh Huddleston MD Status:ADM I N Location: [place] [address] HPI - General General Date of Admission: 05/14/25 Date of Service: 05/14/25 Chief Complaint: Here for rehabilitation. HPI Narrative GOGO WARE, is a 85 Female who presents with followin05/07/2025 [facility] ED fall. Tripped, twisted left upper leg, fell on bilateral knees, unable to walk 2/2 left thigh pain. X-ray shows left distal femur fracture. 05/07/2025 Admit [facility]. Prepare for surgery left distal femur [...] rehabilitation, strengthening, prior to discharge home alone. 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 Eh Huddleston MD ~* Signed [facility]07-19-2025 Progress note Author Vincent Maddox [facility] Note Date/Time May 15, 2025 10:1 4am [facility] Medical Records Department [address] [place] [address] Progress Note - Pharmacy 05/15/25 0941 MR#: [id number] Acct: [id number] Name: CARMENFELICIAROBEGOGO MUÑOZLOLA alvarado #:[id number] : 1940 85 From: Vincent Maddox PCP: Dr. Eh Huddleston MD Status:ADM I N Location: [place] [address] Documented by User: Vincent Maddox 05/15/25 10:11 [...] <Electronically signed by Vincent Maddox> Vincent Maddox Cosigner Signature (if applicable): 05/15/25 1014 <Electronically signed by Eh Huddleston MD> CC: ~ Signed [facility] Work Phone: 1(781) 807-870407-19-2025 Progress note [facility] Medical Records Department [address] [place] [address] Progress Note - Pharmacy 05/15/25 0941 MR#: [id number] Acct: [id number] Name: GOGO WARE p #:[id number] : 1940 85 From: Vincent Maddox PCP: Dr. Eh Huddleston MD Status:ADM I N Location: [place] [address] Documented by User: Vincent Maddox 05/15/25 10:11 [...] (if applicable): 05/15/25 1014 CC: ~ Signed [facility]07-18-2025 [facility]07-18-2025 Discharge summary Author Manny Murdock [facility] Note Date/Time May 14, 2025 12:[facility] [address] [place] [address] Transfer to [facility] Care MR#: [id number] Acct: [id number] Name: GOGO WARE p #:[id number] : 1940 85 From: Manny Millard PCP: Dr. Eh Huddleston MD Status:ADM I N Certification of patient admission REQUIRED AT TIME OF ADMISSION. I CERTIFY THAT POST-HOSPITAL ECF SERVICES ARE REQUIRED TO BE GIVEN ON AN IN-PATIENT BASIS BECAUSE OF THE ABOVE NAMED PATIENT'S NEED FOR RESIDENTIAL CARE ON A CONTINUING BASIS FOR THE [...] speech and encephalopathy therefore transferred from [facility] to U. 1. Left distal femur fracture [...] (Auto) 70.8 H, Lymph % (Auto) 14.8L, [place] % (Auto) 11.2 H, Eos % (Auto) [...] 76.4 H, Lymph % (Auto) 10.7 L, [place] % (Auto) 10.9 H, Eos % (Auto) [...] the visualized lower lumbar spine are seen. Cdpv-bv-zwadvejs degenerative changes of the visualized portions of the left knee. Reading Location: [id number] Femur X-Ray 05/07/25 07:24 IMPRESSION: A spiral [...] the visualized lower lumbar spine are seen. Qvqz-ml-tyiduxtv degenerative changes of the visualized portions of the left knee. Reading Location: [id number] Femur X-Ray 05/09/25 08:00 IMPRESSION: Anatomic alignment Reading [facility] 05/10/25 09:24 IMPRESSION: CHRONIC CHANGES. NO ACUTE FINDINGS. Reading Location: [facility] Head/Neck CTA 05/10/25 09:35 IMPRESSION: Atherosclerotic calcific plaques at the origin of the right and left internal carotid arteries as described. Red Alert: Nothing acute The critical information above was relayed directly by me by telephone to Sourav Casiano on 05/10/2025 at 9:55 am with readback verification. Reading Location: [facility] Brain MRI 05/11/25 12:05 IMPRESSION: 1. Numerous [...] in before D/C Order can be placed): Jail Facility (1) Femoral distal fracture Qualifiers: Encounter [...] Melissa Quinonez DO; Benjamín Trinidad MD ~ [facility] Work Phone: 1(400) 365-215407-18-2025 Hospital Discharge instructionsAdditional Instructions Date of Discharge: 05/14/25[facility] Work Phone: 1(975) 474-872407-18-2025 Discharge summary [facility] Medical Records Department [address] [place] [address] Discharge Summary 05/14/25 1237 MR#: [id number] Acct: [id number] Name: GOGO WARE p #:[id number] : 1940 85 From: Manny Millard PCP: Dr. Eh Huddleston MD Status:ADM I N Location: [place] [address]- Providers Date of Admission: 05/07/25 Date of Discharge: 05/14/25 Primary Care Physician: Dr. Eh Huddlesotn MD Consultations 05/07/25 15:28 Consult: Orthopedics Routine Consulting Provider: Santhosh Livingston Reason for Consult: Left femur fracture EMERGENT Consult: No Notified: Yes Date Notified: 05/07/25 Time Notified: [...] speech and encephalopathy therefore transferred from [facility] to PCU. 1. Left distal femur fracture [...] the visualized lower lumbar spine are seen. Ydkn-ay-iglvibgq degenerative changes of the visualized portions of the left knee. Reading Location: [id number] Femur X-Ray 05/07/25 07:24 IMPRESSION: A spiral [...] the visualized lower lumbar spine are seen. Gktg-sq-niczuzwc degenerative changes of the visualized portions of the left knee. Reading Location: [id number] Femur X-Ray 05/09/25 08:00 IMPRESSION: Anatomic alignment Reading Location: RAD-KAJOYCE-NL Brain CT 05/10/25 09:24 IMPRESSION: CHRONIC CHANGES. NO ACUTE FINDINGS. Reading Location: [facility] Head/Neck CTA 05/10/25 09:35 IMPRESSION: Atherosclerotic calcific plaques at the origin of the right and left internal carotid arteries as described. Red Alert: Nothing acute The critical information above was relayed directly by me by telephone to Sourav Casiano on 05/10/2025 at 9:55 am with readback verification. Reading Location: [facility] Brain MRI 05/11/25 12:05 IMPRESSION: 1. Numerous [...] (Auto) 67.5, Lymph % (Auto) 18.1 L, [place] % (Auto) 10.3 H, Eos % (Auto) [...] 75 mg tablet 75 mg PO DAILY Taj 5 mg tablet 5 mg PO BID temazepam 30 mg capsule 30 mg PO DAILY carvedilol 12.5 mg tablet 12.5 mg PO BID Qty: 180 4RF Discontinued valsartan 160 mg tablet 80 mg PO DAILY Other Ambulatory Orders: 30 Day Event Recorder Preventi (Urgent) Timeframe: 1 Day Facility: [facility] - Location: Cardiovascular Services Ordered By: [...] in before D/C Order can be placed): Jail Facility 05/14/25 1244 Cosigner Signature (if applicable): CC: Dr. Manny Murdock MD; Dr. Eh Huddleston MD~ Signed [facility]07-18-[facility] Discharge summary [facility] Medical Records Department [address] [place] [address] Transfer to [facility] Care MR#: [id number] Acct: [id number] Name: GOGO WARE p #:[id number] : 1940 85 From: Manny Millard PCP: Dr. Eh Huddleston MD Status:ADM I N Certification of patient admission REQUIRED AT TIME OF ADMISSION. I CERTIFY THAT POST-HOSPITAL F SERVICES ARE REQUIRED TO BE GIVEN ON AN IN-PATIENT BASIS BECAUSE OF THE ABOVE NAMED PATIENT'S NEED FOR RESIDENTIAL CARE ON A CONTINUING BASIS FOR THE CONDITION(S) FOR WHICH HE/SHE WAS RECEIVING IN-PATIENT HOSPITAL SERVICES PRIOR TO HIS/HER TRANSFER TO THE [facility]. 05/14/25 1212 Diet Diet Order/Speech Therapy: INPATIENT [...] speech and encephalopathy therefore transferred from [facility] to PCU. 1. Left distal femur fracture [...] (Auto) 70.8 H, Lymph % (Auto) 14.8L, [place] % (Auto) 11.2 H, Eos % (Auto) [...] 76.4 H, Lymph % (Auto) 10.7 L, [place] % (Auto) 10.9 H, Eos % (Auto) [...] the visualized lower lumbar spine are seen. Adnc-tt-dpixltoq degenerative changes of the visualized portions of the left knee. Reading Location: [id number] Femur X-Ray 05/07/25 07:24 IMPRESSION: A spiral [...] the visualized lower lumbar spine are seen. Vkrw-ou-ihykovuq degenerative changes of the visualized portions of the left knee. Reading Location: [id number] Femur X-Ray 05/09/25 08:00 IMPRESSION: Anatomic alignment Reading Location: RAD-KAJI-NL Brain CT 05/10/25 09:24 IMPRESSION: CHRONIC CHANGES. NO ACUTE FINDINGS. [facility] Head/Neck [facility] 05/10/25 09:35 IMPRESSION: Atherosclerotic calcific plaques at the origin of the right and left internal carotid arteries as described. Red Alert: Nothing acute The critical information above was relayed directly by me by telephone to Sourav Casiano on 05/10/2025 at 9:55 am with readback verification. Reading Location: [facility] Brain MRI 05/11/25 12:05 IMPRESSION: 1. Numerous [...] in before D/C Order can be placed): Jail Facility (1) Femoral distal fracture Qualifiers: Encounter [...] Melissa Quinonez DO; Benjamín Trinidad MD ~ [facility]07-17-2025 Progress note Author Manny Murdock [facility] Note Date/Time May 13, 2025 4:09 pm [facility] Medical Records Department [address] [place] [address] Progress Note - Hospitalist 05/13/25 1606 MR#: [id number] Acct: [id number] Name: GOGO WARE p #:[id number] : 1940 85 From: Manny Millard PCP: Dr. Eh Huddleston MD Status:ADM I N Location: [place] [address] Reason for Visit Chief Complaint: Left leg [...] (Auto) 70.8 H, Lymph % (Auto) 14.8L, [place] % (Auto) 11.2 H, Eos % (Auto) [...] speech and encephalopathy therefore transferred from [facility] to PCU. 1. Left distal femur fracture [...] (Auto) 70.8 H, Lymph % (Auto) 14.8L, [place] % (Auto) 11.2 H, Eos % (Auto) [...] 76.4 H, Lymph % (Auto) 10.7 L, [place] % (Auto) 10.9 H, Eos % (Auto) [...] the visualized lower lumbar spine are seen. Cwjj-na-dcbvvhby degenerative changes of the visualized portions of the left knee. Reading Location: [id number] Femur X-Ray 05/07/25 07:24 IMPRESSION: A spiral [...] the visualized lower lumbar spine are seen. Rgsc-zf-siczvyrj degenerative changes of the visualized portions of the left knee. Reading Location: [id number] Femur X-Ray 05/09/25 08:00 IMPRESSION: Anatomic alignment [facility] 05/10/25 09:24 IMPRESSION: CHRONIC CHANGES. NO ACUTE FINDINGS. Reading Location: [facility] Head/Neck CTA 05/10/25 09:35 IMPRESSION: Atherosclerotic calcific plaques at the origin of the right and left internal carotid arteries as described. Red Alert: Nothing acute The critical information above was relayed directly by me by telephone to Sourav Casiano on 05/10/2025 at 9:55 am with readback verification. Reading Location: [facility] Brain MRI 05/11/25 12:05 IMPRESSION: 1. Numerous [...] and Student Charges/Coding Visit Charges Inpatient E&M: 77275 Subs Hosp L2 NIHSS NIHSS Nursing Documentation NIHSS Nursing Documentation: NIHSS: Ischemic Stroke/TIA Start: 05/12/25 09:41 Freq: [id number] Status: Active Protocol: Activity Type Activity Date Activity User E-sign Co-sign Detail Recorded Client Recorded Date Recorded By Document 05/13/25 11:18 EM [id number] 05/13/25 13:00 EM 05/13/25 11:18 NIH Stroke [...] Cosigner Signature (if applicable): CC: ~ Signed [facility] Work Phone: 1(517) 205-799807-17-2025 Progress note [facility] Medical Records Department [address] [place] [address] Progress Note - Hospitalist 05/13/25 1606 MR#: [id number] Acct: [id number] Name: GOGO WARE p #:[id number] : 1940 85 From: Manny Millard PCP: Dr. Eh Huddleston MD Status:ADM I N Location: [place] [address] Reason for Visit Chief Complaint: Left leg [...] (Auto) 70.8 H, Lymph % (Auto) 14.8L, [place] % (Auto) 11.2 H, Eos % (Auto) [...] speech and encephalopathy therefore transferred from [facility] to PCU. 1. Left distal femur fracture [...] (Auto) 70.8 H, Lymph % (Auto) 14.8L, [place] % (Auto) 11.2 H, Eos % (Auto) [...] 76.4 H, Lymph % (Auto) 10.7 L, [place] % (Auto) 10.9 H, Eos % (Auto) [...] the visualized lower lumbar spine are seen. Vpnr-tm-qblaiwfd degenerative changes of the visualized portions of the left knee. Reading Location: [id number] Femur X-Ray 05/07/25 07:24 IMPRESSION: A spiral [...] the visualized lower lumbar spine are seen. Dcce-vg-fghcqxwo degenerative changes of the visualized portions of the left knee. Reading Location: [id number] Femur X-Ray 05/09/25 08:00 IMPRESSION: Anatomic alignment Reading Location: RAD-KAJI-NL Brain CT 05/10/25 09:24 IMPRESSION: CHRONIC CHANGES. NO ACUTE FINDINGS. Reading Location: [place] [address] Head/Neck CTA 05/10/25 09:35 IMPRESSION: Atherosclerotic calcific plaques at the origin of the right and left internal carotid arteries as described. Red Alert: Nothing acute The critical information above was relayed directly by me by telephone to Sourav Casiano on 05/10/2025 at 9:55 am with readback verification. Reading Location: [place] [address] Brain MRI 05/11/25 12:05 IMPRESSION: 1. Numerous [...] and Student Charges/Coding Visit Charges Inpatient E&M: 21952 Subs Hosp L2 NIHSS NIHSS Nursing Documentation NIHSS Nursing Documentation: NIHSS: Ischemic Stroke/TIA Start: 05/12/25 09:41 Freq: [id number] Status: Active Protocol: Activity Type Activity Date Activity User E-sign Co-sign Detail Recorded Client Recorded Date Recorded By Document 05/13/25 11:18 [id number] 05/13/25 13:00 05/13/25 11:18 NIH Stroke Scale [NIHSS] A [...] Cosigner Signature (if applicable): CC: ~ Signed [facility]07-17-2025 Progress note Author Deann Santana [facility] Note Date/Time May 13, 2025 11:0 8am [facility] Medical Records Department [address] [place] [address] Progress Note - Neurology 05/13/25 1106 MR#: [id number] Acct: [id number] Name: GOGO WARE p #:[id number] : 1940 85 From: Deann Santana MD PCP: Dr. Eh Huddleston MD Status:ADM I N Location: [place] [address] Objective Data Objective Data Vital Signs: Vital [...] 76.4 H, Lymph % (Auto) 10.7 L, [place] % (Auto) 10.9 H, Eos % (Auto) [...] (Auto) 70.8 H, Lymph % (Auto) 14.8L, [place] % (Auto) 11.2 H, Eos % (Auto) [...] HTN, and Glaucoma who is admitted to [place] for L femur fracture s/p L ORIF [...] to this regimen. Would recommend quality assurance monitor chassis/30-day event monitor at discharge Would recommend vascular risk factor modification ? LDL Goal < 70 ? Smoking Cessation ? Diabetes Management ? terminal supervisor blood pressure control should achieve <130/80 mmHg. BP management should aim to achieve skilled nursing contorl in a reasonable amount of time, taking into consideration the individual patient's requirements and characteristics. ? Weight Management: Goal for BMI is 18.5 -24.9 kg/mg ? Alcohol: No more than 2 drinks/day for men or 1 drink/day for non- women ? Promote lifestyle modification: weight control, physical activity, moderation of alcohol intake, moderate sodium intake. PT/OT/SLITTER HELPER consultations Follow up in Neurovascular Clinic [place] 4-6 Weeks after discharge. Ensure PCP follow up in 1- 2 weeks. Cardiology follow up as needed. NIHSS NIHSS Nursing Documentation NIHSS Nursing Documentation: NIHSS: Ischemic Stroke/TIA Start: 05/12/25 09:41 Freq: [id number] Status: Active Protocol: Activity Type Activity Date [...] Cosigner Signature (if applicable): CC: ~ Signed [facility] Work Phone: 1(311) 916-765507-17-2025 Progress note [facility] Medical Records Department [address] [place] [address] Progress Note - Neurology 05/13/25 1106 MR#: [id number] Acct: [id number] Name: GOGO WARE p #:[id number] : 1940 85 From: Deann Santana MD PCP: Dr. Eh Huddleston MD Status:ADM I N Location: [place] [address] Objective Data Objective Data Vital Signs: Vital [...] 76.4 H, Lymph % (Auto) 10.7 L, [place] % (Auto) 10.9 H, Eos % (Auto) [...] (Auto) 70.8 H, Lymph % (Auto) 14.8L, [place] % (Auto) 11.2 H, Eos % (Auto) [...] HTN, and Glaucoma who is admitted to [place] for L femur fracture s/p L ORIF [...] to this regimen. Would recommend quality assurance monitor chassis/30-day event monitor at discharge Would recommend vascular risk factor modification ? LDL Goal < 70 ? Smoking Cessation ? Diabetes Management ? terminal supervisor blood pressure control should achieve <130/80 mmHg. BP management should aimto achieve exterminator termite contorl in a reasonable amount of time, taking into consideration the individual patient's requirements and characteristics. ? Weight Management: Goal for BMI is 18.5 -24.9 kg/mg ? Alcohol: No more than 2 drinks/day for men or 1 drink/day for non- women ? Promote lifestyle modification: weight control, physical activity, moderation of alcohol intake, moderate sodium intake. PT/OT/SLITTER HELPER consultations Follow up in Neurovascular Clinic [place] 4-6 Weeks after discharge. Ensure PCP follow up in 1- 2 weeks.Cardiology follow up as needed. NIHSS NIHSS Nursing Documentation NIHSS Nursing Documentation: NIHSS: Ischemic Stroke/TIA Start: 05/12/25 09:41 Freq: [id number] Status: Active Protocol: Activity Type Activity Date [...] Cosigner Signature (if applicable): CC: ~ Signed [facility]07-16-2025 Progress note Author Manny Murdock [facility] Note Date/Time May 12, 2025 4:26 pm [facility] Medical Records Department [address] [place] [address] Progress Note - Hospitalist 05/12/25 1612 MR#: [id number] Acct: [id number] Name: GOGO WARE p #:[id number] : 1940 85 From: Manny Millard PCP: Dr. Eh Huddleston MD Status:ADM I N Location: [place] [address] Reason for Visit Chief Complaint: Left leg [...] 76.4 H, Lymph % (Auto) 10.7 L, [place] % (Auto) 10.9 H, Eos % (Auto) [...] hemorrhage, extra-axial collection, or mass-effect. Reading Location: [id number]-SF Echocardiogram 05/11/25 19:18 Interpretation Summary The estimated [...] speech and encephalopathy therefore transferred from [facility] to U. 1. Left distal femur fracture [...] 76.4 H, Lymph % (Auto) 10.7 L, [place] % (Auto) 10.9 H, Eos % (Auto) [...] the visualized lower lumbar spine are seen. Zmfs-dk-dqnhipfg degenerative changes of the visualized portions of the left knee. Reading Location: [id number] Femur X-Ray 05/07/25 07:24 IMPRESSION: A spiral [...] the visualized lower lumbar spine are seen. Vlsa-ri-jpyjpkkh degenerative changes of the visualized portions of the left knee. Reading Location: [id number] Femur X-Ray 05/09/25 08:00 IMPRESSION: Anatomic alignment Reading [facility] Brain [facility] 05/10/25 09:24 IMPRESSION: CHRONIC CHANGES. NO ACUTE FINDINGS. Reading Location: [facility] Head/Neck CTA 05/10/25 09:35 IMPRESSION: Atherosclerotic calcific plaques at the origin of the right and left internal carotid arteries as described. Red Alert: Nothing acute The critical information above was relayed directly by me by telephone to Sourav Casiano on 05/10/2025 at 9:55 am with readback verification. Reading Location: [facility] Brain MRI 05/11/25 12:05 IMPRESSION: 1. Numerous [...] is 35 minutes. Visit Charges Inpatient E&M: 55872 Subs Hosp L3 NIHSS NIHSS Nursing Documentation NIHSS Nursing Documentation: NIHSS: Ischemic Stroke/TIA Start: 05/12/25 09:41 Freq: [id number] Status: Active Protocol: Activity Type Activity Date Activity User E-sign Co-sign Detail Recorded Client Recorded Date Recorded By Document 05/12/25 12:32 LR [id number] 05/12/25 12:41 LR 05/12/25 12:32 NIH Stroke [...] of > / = 3 points. 05/12/25 0305 <Electronically signed by Manny Murdock MD> Cosigner Signature (if applicable): CC: ~ Signed [facility] Work Phone: 1(139) 800-692607-16-2025 Progress note [facility] Medical Records Department [address] [place] [address] Progress Note - Hospitalist 05/12/25 1612 MR#: [id number] Acct: [id number] Name: GOGO WARE p #:[id number] : 1940 85 From: Manny Millard PCP: Dr. Eh Huddleston MD Status:ADM I N Location: [place] [address] Reason for Visit Chief Complaint: Left leg [...] 76.4 H, Lymph % (Auto) 10.7 L, [place] % (Auto) 10.9 H, Eos % (Auto) [...] hemorrhage, extra-axial collection, or mass-effect. Reading Location: [facility] Echocardiogram 05/11/25 19:18 Interpretation Summary The estimated [...] speech and encephalopathy therefore transferred from [facility] to PCU. 1. Left distal femur fracture [...] 76.4 H, Lymph % (Auto) 10.7 L, [place] % (Auto) 10.9 H, Eos % (Auto) [...] the visualized lower lumbar spine are seen. Biam-yr-ugaprgfa degenerative changes of the visualized portions of the left knee. Reading Location: [id number] Femur X-Ray 05/07/25 07:24 IMPRESSION: A spiral [...] the visualized lower lumbar spine are seen. Pjpm-zn-zdpfxeij degenerative changes of the visualized portions of the left knee. Reading Location: [id number] Femur X-Ray 05/09/25 08:00 IMPRESSION: Anatomic alignment Reading Location[facility] Brain CT 05/10/25 09:24 IMPRESSION: CHRONIC CHANGES. NO ACUTE FINDINGS. Reading Location: [facility] Head/Neck CTA 05/10/25 09:35 IMPRESSION: Atherosclerotic calcific plaques at the origin of the right and left internal carotid arteries as described. Red Alert: Nothing acute The critical information above was relayed directly by me by telephone to Sourav Casiano on 05/10/2025 at 9:55 am with readback verification. Reading Location: [facility] Brain MRI 05/11/25 12:05 IMPRESSION: 1. Numerous [...] is 35 minutes. Visit Charges Inpatient E&M: 18172 Subs Hosp L3 NIHSS NIHSS Nursing Documentation NIHSS Nursing Documentation: NIHSS: Ischemic Stroke/TIA Start: 05/12/25 09:41 Freq: [id number] Status: Active Protocol: Activity Type Activity Date Activity User E-sign Co-sign Detail Recorded Client Recorded Date Recorded By Document 05/12/25 12:32 [facility] [id number] 05/12/25 12:41 [facility] 05/12/25 12:32 NIH Stroke Scale [NIHSS] A [...] Cosigner Signature (if applicable): CC: ~ Signed [facility]07-16-2025 Consult note Author Deann Santana [facility] Note Date/Time May 12, 2025 1:24 pm [facility] Medical Records Department [address] [place] [address] Consultation - Neurology 05/12/25 1318 MR#: [id number] Acct: [id number] Name: GOGO WARE Heidi p #:[id number] : 1940 85 From: Deann Santana MD PCP: Dr. 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 BP managementshould aim to achieve skilled nursing contorl in a reasonable amount of time, taking into consideration the individual patient's requirements and characteristics. Weight Management: Goal for BMI is 18.5 -24.9 kg/m2 Alcohol: No more than 2 drinks/day for men or 1 drink/day for non- women Promote lifestyle modification: weight control, physical activity, moderation of alcohol intake, moderate sodium intake. PT/OT/SLITTER HELPER consultations Follow up in Neurovascular Clinic [place] 4-6 Weeks after discharge. Ensure PCP follow up in 1- 2 weeks. Cardiology follow up as needed. 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 Reading Location: [id number] Echocardiogram 05/11/25 19:18 Interpretation Summary The estimated [...] mls @ 15 mls/hr 05/09/25 15:53 IV .[id number] PRN Additional IVPB Infusion Labetalol HCl 10 [...] NIHSS: Ischemic Stroke/TIA Start: 05/12/25 09:41 Freq: [id number] Status: Active Protocol: Activity Type Activity Date Activity User E-sign Co-sign Detail Recorded Client Recorded Date Recorded By Document 05/12/25 12:32 LRM [id number] 05/12/25 12:41 LRM 05/12/25 12:32 NIH Stroke Scale [NIHSS] A [...] applicable): CC: Dr. Eh Huddleston MD~ Signed [facility] Work Phone: 1(286) 785-707407-16-2025 Progress note Author Alice Pathak [facility] Note Date/Time May 12, 2025 12:2 5pm [facility] Medical Records Department [address] [place] [address] Progress Note - Orthopedic 05/12/25 1212 MR#: [id number] Acct: [id number] Name: GOGO WARE p #:[id number] : 1940 85 From: Alice DOW PCP: Dr. Eh Huddleston MD Status:ADM I N Location: [place] [address] Subjective Subjective Patient is an 85-year-old female [...] 76.4 H, Lymph % (Auto) 10.7 L, [place] % (Auto) 10.9 H, Eos % (Auto) [...] hemorrhage, extra-axial collection, or mass-effect. Reading Location: [facility] Physical Exam Narrative spontaneously awake and responsive [...] week. lakeisha remain x 2 week. 05/12/25 4548 <Electronically signed by Alice DOW> Cosigner Signature (if applicable): CC: ~ Signed [facility] Work Phone: 1(518) 619-280907-16-2025 Consult note [facility] Medical Records Department [address] [place] [address] Consultation - Neurology 05/12/25 1318 MR#: [id number] Acct: [id number] Name: GOGO WARE p #:[id number] : 1940 85 From: Deann Santana MD PCP: Dr. 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 [...] moderation of alcohol intake, moderate sodium intake. PT/OT/SLITTER HELPER consultations Follow up in Neurovascular Clinic [place] 4-6 Weeks after discharge. Ensure PCP follow up in 1- 2 weeks.Cardiology follow up as needed. 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 Reading Location: [id number] Echocardiogram 05/11/25 19:18 Interpretation Summary The estimated [...] 40 Mg Tablet PO Not Given [facility] Brimonidine Tartrate 1 drp 05/07/25 22:00 05/12/25 [...] mls @ 15 mls/hr 05/09/25 15:53 IV .[id number] PRN Additional IVPB Infusion Labetalol HCl 10 [...] NIHSS: Ischemic Stroke/TIA Start: 05/12/25 09:41 Freq: [id number] Status: Active Protocol: Activity Type Activity Date Activity User E-sign Co-sign Detail Recorded Client Recorded Date Recorded By Document 05/12/25 12:32 [facility] [id number] 05/12/25 12:41 LR 05/12/25 12:32 NIH Stroke [...] applicable): CC: Dr. Eh Huddleston MD~ Signed [facility]07-16-2025 Progress note [facility] Medical Records Department [address] [place] [address] Progress Note - Orthopedic 05/12/25 1212 MR#: [id number] Acct: [id number] Name: GOGO WARE p #:[id number] : 1940 85 From: Alice DOW PCP: Dr. Eh Huddleston MD Status:ADM I N Location: [place] [address] Subjective Subjective Patient is an 85-year-old female status post left femur open reduction internal fixation with Dr. Livingston 05/09/2025. Patient's pain has a seemingly been well- controlled. patient was found to have embolic stroke after STAT MRI yesterday. she has been moved to PCU and evaluated by neurology. The dressing remains [...] 76.4 H, Lymph % (Auto) 10.7 L, [place] % (Auto) 10.9 H, Eos % (Auto) [...] hemorrhage, extra-axial collection, or mass-effect. Reading Location: [facility] Physical Exam Narrative spontaneously awake and responsive [...] Cosigner Signature (if applicable): CC: ~ Signed [facility]07-15-2025 Progress note Author Sourav [facility] Note Date/Time May 11, 2025 7:20 pm [facility] Medical Records Department [address] [place] [address] Progress Note - Hospitalist 05/11/251914 MR#: [id number] Acct: [id number] Name: GOGO WARE p #:[id number] : 1940 85 From: Sourav Casiano DO PCP: Dr. Eh Huddleston MD Status:ADM I N Location: [place] [address] Hospitalist Note MRI of the brain was [...] Cosigner Signature (if applicable): CC: ~ Signed [facility] Work Phone: 1(644) 694-327607-15-2025 Progress note [facility] Medical Records Department [address] [place] [address] Progress Note - Hospitalist 05/11/251914 MR#: [id number] Acct: [id number] Name: GOGO WARE p #:[id number] : 1940 85 From: Sourav Casiano DO PCP: Dr. Eh Huddleston MD Status:ADM I N Location: MS3 MW376-8 Hospitalist Note MRI of the brain was performed today, it showed multiple acute small strokes felt to be embolic in nature, I will have teleneurology see the patient tomorrow. I have made the decision to stop the patient's antibiotics at this time. Patient remains on a statin and Eliquis at this time. 05/11/251919 Cosigner Signature (if applicable): CC: ~ Signed [facility]07-15-2025 Progress note Author Alice Pathak [facility] Note Date/Time May 11, 2025 4:17 pm [facility] Medical Records Department [address] [place] [address] Progress Note - Orthopedic 05/11/251608 MR#: [id number] Acct: [id number] Name: GOGO WARE p #:[id number] : 1940 85 From: Alice DOW PCP: Dr. Eh Huddleston MD Status:ADM I N Location: MS3 [id number] Subjective Subjective Patient is an 85-year-old female [...] 80.2 H, Lymph % (Auto) 6.5 L, [place] % (Auto) 12.8 H, Eos % (Auto) [...] Clarity Clear, Urine pH 5.0, Ur Specific [place] 1.020, Urine Protein 15 H, Urine Glucose [...] % (Auto) Cancelled, Lymph % (Auto) Cancelled, [place] % (Auto) Cancelled, Eos % (Auto) Cancelled, [...] Drop Cells Cancelled, Ovalocytes Cancelled, Stomatocytes Cancelled, [place] Bodies Cancelled, Sharifa Cells Cancelled, Bite Cells [...] 80.9 H, Lymph % (Auto) 7.8 L, [place] % (Auto) 10.4 H, Eos % (Auto) [...] placement. - Case management - D/C planning 05/11/257 <Electronically signed by Alice DOW> Cosigner Signature (if applicable): CC: ~ Signed [facility] Work Phone: 1(553) 844-258907-15-2025 Progress note Author Sourav Casiano [facility] Note Date/Time May 11, 2025 3:23 pm [facility] Medical Records Department [address] [place] [address] Progress Note - Hospitalist 05/11/25 9789 MR#: [id number] Acct: [id number] Name: GOGO WARE p #:[id number] : 1940 85 From: Sourav Casiano DO PCP: Dr. Eh Huddleston MD Status:ADM I N Location: MS3 [id number] Reason for Visit Chief Complaint: Left leg [...] 80.2 H, Lymph % (Auto) 6.5 L, [place] % (Auto) 12.8 H, Eos % (Auto) [...] Clarity Clear, Urine pH 5.0, Ur Specific [place] 1.020, Urine Protein 15 H, Urine Glucose [...] % (Auto) Cancelled, Lymph % (Auto) Cancelled, [place] % (Auto) Cancelled, Eos % (Auto) Cancelled, [...] Drop Cells Cancelled, Ovalocytes Cancelled, Stomatocytes Cancelled, [place] Bodies Cancelled, [place] Cells Cancelled, Bite Cells [...] 80.9 H, Lymph % (Auto) 7.8 L, [place] % (Auto) 10.4 H, Eos % (Auto) [...] 35- minutes Charges/Coding Visit Charges Inpatient E&M: 40879 Subs Hosp L2 05/11/25 3130 <Electronically signed by Sourav Casiano DO> Cosigner Signature (if applicable): CC: ~ Signed [facility] Work Phone: 1([phone]) 732-170107-15-2025 Progress note [facility] Medical Records Department [address] [place] [address] Progress Note - Orthopedic 05/11/25 1609 MR#: [id number] Acct: [id number] Name: GOGO WARE p #:[id number] : 1940 85 From: Alice DOW PCP: Dr. Eh Huddleston MD Status:ADM I N Location: [place] [id number] Subjective Subjective Patient is an 85-year-old female [...] 80.2 H, Lymph % (Auto) 6.5 L, [place] % (Auto) 12.8 H, Eos % (Auto) [...] Clarity Clear, Urine pH 5.0, Ur Specific [place] 1.020, Urine Protein 15 H, Urine Glucose [...] % (Auto) Cancelled, Lymph % (Auto) Cancelled, [place] % (Auto) Cancelled, Eos % (Auto) Cancelled, [...] Drop Cells Cancelled, Ovalocytes Cancelled, Stomatocytes Cancelled, [place] Bodies Cancelled, [place] Cells Cancelled, Bite Cells [...] 80.9 H, Lymph % (Auto) 7.8 L, [place] % (Auto) 10.4 H, Eos % (Auto) [...] Cosigner Signature (if applicable): CC: ~ Signed [facility]07-15-2025 Progress note [facility] Medical Records Department [address] [place] [address] Progress Note - Hospitalist 05/11/25 1514 MR#: [id number] Acct: [id number] Name: GOGO WARE p #:[id number] : 1940 85 From: Sourav Casiano DO PCP: Dr. Eh Huddleston MD Status:ADM I N Location: [place] [address]1 Reason for Visit Chief Complaint: Left leg [...] 80.2 H, Lymph % (Auto) 6.5 L, [place] % (Auto) 12.8 H, Eos % (Auto) [...] Clarity Clear, Urine pH 5.0, Ur Specific [place] 1.020, Urine Protein 15 H, Urine Glucose [...] % (Auto) Cancelled, Lymph % (Auto) Cancelled, [place] % (Auto) Cancelled, Eos % (Auto) Cancelled, [...] Drop Cells Cancelled, Ovalocytes Cancelled, Stomatocytes Cancelled, [place] Bodies Cancelled, Steinauer Cells Cancelled, Bite Cells Cancelled, Crenated Cell Cancelled, Acanthocytes (Spur) Cancelled, Rouleaux Cancelled, Schistocytes Cancelled 05/11/25 09:15: WBC 10.3, RBC 2.02 L, Hgb 6.3 L, Hct 18.5 L, MCV 91.6, MCH 31.2,MCHC 34.1, RDW Std Deviation 47.1 H, RDW Coeff of Alex 13.9, Plt Count 114 L, MPV10.7, Immature Gran % (Auto) 0.300, Neut % (Auto) 80.9 H, Lymph % (Auto) 7.8 L, [place] % (Auto) 10.4 H, Eos % (Auto) [...] team: 35-minutes Charges/Coding Visit Charges Inpatient E&M: 35858 Subs Hosp L2 05/11/25 1523 Cosigner Signature (if applicable): CC: ~ Signed [facility]07-14-2025 Progress note Author Sourav [facility] Note Date/Time May 10, 2025 6:27 pm [facility] Medical Records Department [address] [place] [address] Progress Note - Hospitalist 05/10/25 1822 MR#: [id number] Acct: [id number] Name: GOGO WARE Heidi p #:[id number] : 1940 85 From: Sourav Casiano DO PCP: Dr. Eh Huddleston MD Status:ADM I N Location: [place] [address] Reason for Visit Chief Complaint: Left leg [...] 80.2 H, Lymph % (Auto) 6.5 L, [place] % (Auto) 12.8 H, Eos % (Auto) 0.1, Baso % (Auto) 0.1, Absolute Neuts(auto) 11.5 H, Absolute Lymphs (auto) 0.93, Nucleated RBC % 0, Troponin T High Sens 36 H Radiography Diagnostic Testing: Radiology Impression Brain CT 05/10/25 09:24 IMPRESSION: CHRONIC CHANGES. NO ACUTE FINDINGS. Reading Location: [facility] Head/Neck CTA 05/10/25 09:35 IMPRESSION: Atherosclerotic calcific plaques at the origin of the right and left internal carotid arteries as described. Red Alert: Nothing acute The critical information above was relayed directly by me by telephone to Sourav Casiano on 05/10/2025 at 9:55 am with readback verification. Reading Location: [facility] Physical Exam Narrative alert, oriented x3, no [...] team: 50-minute Charges/Coding Visit Charges Inpatient E&M: 21330 Subs Hosp L3 05/10/251826 <Electronically signed by Sourav Casiano DO> Cosigner Signature (if applicable): CC: ~ Signed [facility] Work Phone: 1(598) 339-826107-14-2025 Progress note [facility] Medical Records Department [address] [place] [address] Progress Note - Hospitalist 05/10/25 182 MR#: [id number] Acct: [id number] Name: GOGO WARE p #:[id number] : 1940 85 From: Sourav Casiano DO PCP: Dr. Eh Huddleston MD Status:ADM I N Location: [address] Reason for Visit Chief Complaint: Left [...] 80.2 H, Lymph % (Auto) 6.5 L, [place] % (Auto) 12.8 H, Eos % (Auto) 0.1, Baso % (Auto) 0.1, Absolute Neuts(auto) 11.5 H, Absolute Lymphs (auto) 0.93, Nucleated RBC % 0, Troponin T High Sens 36 H Radiography Diagnostic Testing: Radiology Impression Brain CT 05/10/25 09:24 IMPRESSION: CHRONIC CHANGES. NO ACUTE FINDINGS. Reading Location: [facility] Head/Neck CTA 05/10/25 09:35 IMPRESSION: Atherosclerotic calcific plaques at the origin of the right and left internal carotid arteries as described. Red Alert: Nothing acute The critical information above was relayed directly by me by telephone to Sourav Casiano on 05/10/2025 at 9:55 am with readback verification. Reading Location: [facility] Physical Exam Narrative alert, oriented x3, no [...] team: 50-minute Charges/Coding Visit Charges Inpatient E&M: 92290 [facility] Hosp 05/10/25 1827 Cosigner Signature (if applicable): CC: ~ Signed [facility]07-14-2025 Progress note Author Santhosh Livingston [facility] Note Date/Time May 10, 2025 10:1 2am [facility] Medical Records Department [address] [place] [address] Progress Note - Orthopedic 05/10/25 1009 MR#: [id number] Acct: [id number] Name: GOGO WARE Heidi p #:[id number] : 1940 85 From: Santhosh nascimento DO PCP: Dr. Eh Huddleston MD Status:ADM I N Location: [place] [address]-1 Subjective Subjective Patient seen and examined. Stroke [...] 05/09/25 08:00 IMPRESSION: Anatomic alignment [facility] Head/Neck CTA 05/10/25 09:35 IMPRESSION: Atherosclerotic calcific plaques at the origin of the right and left internal carotid arteries as described. Red Alert: Nothing acute The critical information above was relayed directly by me by telephone to Sourav Casiano on 05/10/2025 at 9:55 am with readback verification. Reading Location: [facility] Physical Exam Narrative Alert and oriented x [...] Cosigner Signature (if applicable): CC: ~ Signed [facility] Work Phone: 1(591) 229-826507-14-2025 Radiology Diagnostic study note [facility] Imaging Services [address] [place] [address] [id number] STROKE Brain/Head without Cont MR#: [id number] Acct: [id number] Name: GOGO WARE Rep #: [id number] : 1940 F 85 From: Jd Martin MD PCP: Dr. Eh Huddleston MD Status: ADM I N Study:STROKE Brain/Head without Cont Date of Exam: 05/10/25 Exam# [id number] Ordering Dr: Sourav Celestin DO PROCEDURE: STROKE [...] CHRONIC CHANGES. NO ACUTE FINDINGS. Reading Location: [facility] CC: Dr. Sourav Casiano DO; Dr. Eh Huddleston MD ~ Feed Crusher: Signed [facility]07-14-2025 Progress note [facility] Medical Records Department [address] [place] [address] Progress Note - Orthopedic 05/10/25 1009 MR#: [id number] Acct: [id number] Name: GOGO WARE p #:[id number] : 1940 85 From: Santhosh nascimento DO PCP: Dr. Eh Huddleston MD Status:ADM I N Location: [place] [id number] Subjective Subjective Patient seen and examined. Stroke [...] 05/09/25 08:00 IMPRESSION: Anatomic alignment Reading Location: [facility] Head/Neck CTA 05/10/25 09:35 IMPRESSION: Atherosclerotic calcific plaques at the origin of the right and left internal carotid arteries as described. Red Alert: Nothing acute The critical information above was relayed directly by me by telephone to Sourav Casiano on 05/10/2025 at 9:55 am with readback verification. Reading Location: [facility] Physical Exam Narrative Alert and oriented x [...] Cosigner Signature (if applicable): CC: ~ Signed [facility]07-14-2025 Radiology Diagnostic study note [facility] Imaging Services [address] [place], [place] [id number] STROKE CTA Head AND Neck W/Con MR#: [id number] Acct: [id number] Name: GOGO WARE Rep #: [id number] : 1940 F 85 From: Jd Martin MD PCP: Dr. Eh Huddleston MD Status: ADM I N Study:STROKE CTA Head AND Neck W/Con Date of Exam: 05/10/25 Exam# [id number] Ordering Dr: Sourav Celestin DO PROCEDURE: STROKE [...] RIGHT Vertebral: Unremarkable. LEFT Vertebral: Unremarkable. Anatomy: [place] anatomy is normal. Atherosclerotic calcific [...] 9:55 am with readback verification. Reading Location: [place] [address] CC: Dr. Sourav Casiano DO; Dr. Eh Huddleston MD ~ Feed Crusher: Signed [facility]07-13-2025 Progress note Author Sourav Casiano [facility] Note Date/Time May 09, 2025 4:19 pm [facility] Medical Records Department [address] [place] [address] Progress Note - Hospitalist 05/09/25 1613 MR#: [id number] Acct: [id number] Name: GOGO WARE p #:[id number] : 1940 85 From: Sourav Casiano DO PCP: Dr. Eh Huddleston MD Status:ADM I N Location: [place] [address] Reason for Visit Chief Complaint: Left leg [...] 05/09/25 08:00 IMPRESSION: Anatomic alignment Reading Location: [facility] Physical Exam Narrative alert, oriented x3, no [...] team: 35-minute Charges/Coding Visit Charges Inpatient E&M: 85705 Subs Hosp L2 05/09/25 1619 <Electronically signed by Sourav Casiano DO> Cosigner Signature (if applicable): CC: ~ Signed [facility] Work Phone: 1(740) 299-470007-13-2025 Progress note [facility] Medical Records Department [address] [place] [address] Progress Note - Hospitalist 05/09/25 1613 MR#: [id number] Acct: [id number] Name: GOGO WARE p #:[id number] : 1940 85 From: Sourav Casiano DO PCP: Dr. Eh Huddleston MD Status:ADM I N Location: [place] [address] Reason for Visit Chief Complaint: Left leg [...] 05/09/25 08:00 IMPRESSION: Anatomic alignment Reading Location: [facility] Physical Exam Narrative alert, oriented x3, no [...] team: 35-minute Charges/Coding Visit Charges Inpatient E&M: 10287 Subs Hosp L2 05/09/25 1619 Cosigner Signature (if applicable): CC: ~ Signed [facility]07-13-2025 Consult note Author Jim Jones [facility] Note Date/Time May 09, 2025 10:[address] [facility] Medical Records Department [address] [place] [address] Anesthesia Postop Eval I 05/09/25 1051 MR#: [id number] Acct: [id number] Name: GOGO WARE p #:[id number] : 1940 85 From: Jim Jones MD PCP: Dr. Eh Huddleston MD Status:ADM I N Y Race: C Location: [place] [address] Anesthesia: Postop Eval I Current Vital Signs [...] Postop Eval 1 completed: Yes 05/09/25 1052 <Electronically signed by Jim Jones MD > Date _ Jim Jones MD Cosigner Signature: Date CC: ~ Signed [facility] Work Phone: 1(909) 712-924007-13-2025 Consult note Author Jim [facility] Note Date/Time May 09, 2025 10:[address] [facility] Medical Records Department [address] [place] [address] Anesthesia Postop Eval II 05/09/25 1052 MR#: [id number] Acct: [id number] Name: GOGO WARE p #:[id number] : 1940 85 From: Jim Jones MD PCP: Dr. Eh Huddleston MD Status:ADM I N Y Race: C Location: [place] [address] Anesthesia Postop Eval I Sum Postop Eval [...] MD Cosigner Signature: Date CC: ~ Signed [facility] Work Phone: 1(501) 591-196207-13-2025 Procedure note [facility] Medical Records Department [address] [place] [address] Operative Report 05/09/25 1101 MR#: [id number] Acct: [id number] Name: GOGO WARE Heidi p #:[id number] : 1940 85 From: Santhosh nascimento DO PCP: Dr. hE Huddleston MD Status:ADM I N Location: [place] [address] Operative Report (Standard) Operative Information Date of Procedure: 05/09/25 Pre-Operative Diagnosis: Left distal femoral shaft spiral fracture Post-Operative Diagnosis: Left distal femoral shaft spiral fracture Surgery/Procedure Performed: Open reduction internal fixation left femoral shaft business development coordinator: Yes [employer] Maker Helper: Samantha Ordaz Tasks completed by seed laboratory assistant: Opening & closing, Implanting device, Hemostasis: Electrocautery and Retracting Additional employee relations assistant?: No Type of Anesthesia: General RN Documented Start/Stop Times: Operation Date: 05/09/25 08:20 Case Time Anesthesia Start 05/09/25 07:59 Into Room 05/09/25 07:59 Procedure Start 05/09/25 08:32 Procedure End 05/09/25 10:42 Anesthesia End 05/09/25 10:47 Out of Room 05/09/25 10:47 Into Recovery 05/09/25 10:50 Procedure Start Time: 08:32 Procedure Stop Time: 10:42 Select all DRAINS/GRAFTS/IMPLANTS that apply: Implanted device Implanted device details: [place] Brian Pro 4.5 mm distal femur plate [...] Fracture was irrigated. I then had my employee relations assistant pull traction on the leg while [...] locking barbed #1 strata fix suture. Interrupted [id number] 0 Vicryl suture was used to reapproximate [...] changes as needed for saturation. Follow-up at [facility] in 2 weeks for x-rays, staple removal and woundassessment. Plan of care discussed with attending hospitalist. Surgical Findings: Long spiral distal third femoral shaft fracture. Stable following fixation. Complications Complications: No Admit VTE Documentation VTE Present on Admission: Yes VTE Pharm Prophylaxis ordered?: Yes 05/09/25 111 Cosigner Signature (if applicable): CC: Dr. Santhosh Livingston DO; Dr. Eh Huddleston MD~ Signed [facility]07-13-[address] [facility] Medical Records Department [address] [place] [address] Anesthesia Postop Eval I 05/09/25 105 MR#: [id number] Acct: [id number] Name: GOGO WARE Heidi p #:[id number] : 1940 85 From: Jim Jones MD PCP: Dr. Eh Huddleston MD Status:ADM I N Y Race: C Location: [place] [address] Anesthesia: Postop Eval I Current Vital Signs [...] document: Postop Eval 1 completed: Yes 05/09/251051 > Date _ Jim Jones MD Cosigner Signature: Date CC: ~ Signed [facility]07-13-[address] [facility] Medical Records Department [address] [place] [address] Anesthesia Postop Eval II 05/09/25 105 MR#: [id number] Acct: [id number] Name: GOGO WARE p #:[id number] : 1940 85 From: Jim Jones MD PCP: Dr. Eh Huddleston MD Status:ADM I N Y Race: C Location: [place] [address] Anesthesia Postop Eval I Sum Postop Eval [...] MD Cosigner Signature: Date CC: ~ Signed [facility]07-13-2025 Radiology Diagnostic study note [facility] Imaging Services [address] [place] [address] Femur Min 2 Views MR#: [id number] Acct: [id number] Name: GOGO WARE Rep #: [id number] : 1940 F 85 From: Paola Hammonds MD PCP: Dr. Eh Huddleston MD Status: ADM I N Study:Femur Min 2 Views Date of Exam: Exam# [id number] Ordering Dr: Santhosh Livingston DO PROCEDURE: FEMUR MIN 2 VIEWS 05/09/2025 REASON FOR EXAM: ORIF DISTAL FEMUR TECHNIQUE: FEMUR MIN 2 VIEWS FINDINGS: 8 intraoperative images demonstrate fluoroscopic assistance provided in the operating room for internal fixation of the femur with side plate and multiple screws RAD/Femur Min 2 Views IMPRESSION: Anatomic alignment Reading Location: [facility] CC: Dr. Santhosh Livingston DO; Dr. Eh Huddleston MD ~ Feed Crusher: Signed [facility]07-13-2025 Consult note Author Jim charles [facility] Note Date/Time May 09, 2025 7:[address] [facility] Medical Records Department [address] [place] [address] Pre-Anesthesia Evaluation 05/09/25 0740 MR#: [id number] Acct: [id number] Name: GOGO WARE Re p #:[id number] : 1940 85 From: Jim Jones MD PCP: Dr. Eh Huddleston MD Status:ADM I N Y Race: C Location: [place] [address] ASA Classification* ASA Classification ASA Classification: 3 [...] femur fracture Anesthesia History Anesthesia History - education supervisor: Anesthesia History - education supervisor Hx Hospitalization Any Problems With Anesthesia No [...] take am of surgery PONV PONV - education supervisor: PONV - education supervisor Female HX of Motion Sickness HX of N/V After Surgery Non-Smoker Duration of Surgery greater than 60 minutes Number of Risk Factors PONV Score Height & Weight Height & Weight: Anesthesia: Height & Weight Height 5 ft 5.5 in 05/09/25 06:27 Weight: 75.6 kg 05/09/25 06:27 Body Mass Index (BMI) 27.3 05/09/25 06:27 Respiratory Assessment Respiratory Assessment - education supervisor: Respiratory Tract Infection Hx - education supervisor Hx Respiratory Tract Infection No 05/08/25 22:56 STOP Sleep Apnea STOP Sleep Apnea - education supervisor: STOP Sleep Apnea - education supervisor Hx Hypertension No 05/09/25 07:11 Hx Sleep [...] Tobacco Use History Tobacco Use History - education supervisor: Tobacco Use History - education supervisor Tobacco Use Smoking Status Never smoker 05/07/25 15:30 Hx Tobacco Use No 05/07/25 15:30 Years Smoking Packs Smoked per Day Smoking Cessation Date was within the last 15 years Hx Smoking Cessation Date Hx Smoking Cessation Counseling Hematologic Medial History Hematologic Hx - education supervisor: 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 Hx of Blood Transfusion No 05/07/25 15:30 [...] confused, unrespo /Reproduction History /Reproductive History - education supervisor: /Reproductive Hx- education supervisor Hx Now No 05/08/25 22:56 Gestational Age [...] mls @ 15 mls/hr 05/07/25 16:06 IV .[id number] PRN Saline Flush Sodium Chloride 250 mls @ 15 mls/hr 05/07/25 16:06 IV .[id number] PRN Additional IVPB Infusion Sodium Chloride 250 mls @ 15 mls/hr 05/08/25 17:50 IV .[id number] PRN Saline Flush Sodium Chloride 250 mls @ 15 mls/hr 05/08/25 17:50 IV .[id number] PRN Additional IVPB Infusion Latanoprost 1 drp [...] 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 Medical Records Department [address] [place] [address] Pre-Anesthesia Evaluation 05/09/25 0740 MR#: [id number] Acct: [id number] Name: GOGO WARE p #:[id number] : 1940 85 From: Jim Jones MD PCP: Dr. Eh Huddleston MD Status:ADM I N Y Race: C Location: [facility] [id number] -1 ASA Classification* ASA Classification ASA Classification: [...] femur fracture Anesthesia History Anesthesia History - education supervisor: Anesthesia History - education supervisor Hx Hospitalization Any Problems With Anesthesia No [...] take am of surgery PONV PONV - education supervisor: PONV - education supervisor Female HX of Motion Sickness HX of N/V After Surgery Non-Smoker Duration of Surgery greater than 60 minutes Number of Risk Factors PONV Score Height & Weight Height & Weight: Anesthesia: Height & Weight Height 5 ft 5.5 in 05/09/25 06:27 Weight: 75.6 kg 05/09/25 06:27 Body Mass Index (BMI) 27.3 05/09/25 06:27 Respiratory Assessment Respiratory Assessment - education supervisor: Respiratory Tract Infection Hx - education supervisor Hx Respiratory Tract Infection No 05/08/25 22:56 STOP Sleep Apnea STOP Sleep Apnea - education supervisor: STOP Sleep Apnea - education supervisor Hx Hypertension No 05/09/25 07:11 Hx Sleep [...] Tobacco Use History Tobacco Use History - education supervisor: Tobacco Use History - education supervisor Tobacco Use Smoking Status Never smoker 05/07/25 15:30 Hx Tobacco Use No 05/07/25 15:30 Years Smoking Packs Smoked per Day Smoking Cessation Date was within the last 15 years Hx Smoking Cessation Date Hx Smoking Cessation Counseling Hematologic Medial History Hematologic Hx - education supervisor: 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 Hx of Blood Transfusion No 05/07/25 15:30 [...] confused, unrespo /Reproduction History /Reproductive History - education supervisor: /Reproductive Hx- education supervisor Hx Now No 05/08/25 22:56 Gestational Age [...] mls @ 15 mls/hr 05/07/25 16:06 IV .[id number] PRN Saline Flush Sodium Chloride 250 mls @ 15 mls/hr 05/07/25 16:06 IV .[id number] PRN Additional IVPB Infusion Sodium Chloride 250 mls @ 15 mls/hr 05/08/25 17:50 IV .[id number] PRN Saline Flush Sodium Chloride 250 mls @ 15 mls/hr 05/08/25 17:50 IV .[id number] PRN Additional IVPB Infusion Latanoprost 1 drp [...] 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 05/09/25 0741 > Date _ Jim Jones MD Cosigner Signature: Date CC: ~ Signed [facility]07-12-2025 Progress note Author Sourav Casiano [facility] Note Date/Time May 08, 2025 6:47 pm [facility] Medical Records Department [address] [place] [address] Progress Note - Hospitalist 05/08/25 1845 MR#: [id number] Acct: [id number] Name: GOGO WARE p #:[id number] : 1940 85 From: Sourav Casiano DO PCP: Dr. Eh Huddleston MD Status:ADM I N Location: [place] [address] Reason for Visit Reason for Visit: Diagnoses [...] (Auto) 73.9 H, Lymph % (Auto) 15.4 L,[place] % (Auto) 10.2 H, Eos % (Auto) [...] team: 35-minute Charges/Coding Visit Charges Inpatient E&M: 85713 Subs Hosp L2 05/08/251846 <Electronically signed by Sourav Casiano DO> Cosigner Signature (if applicable): CC: ~ Signed [facility] Work Phone: 1(534) 527-389107-12-2025 Progress note [facility] Medical Records Department [address] [facility] [place] [address] Progress Note - Hospitalist 05/08/251844 MR#: [id number] Acct: [id number] Name: GOGO WARE p #:[id number] : 1940 85 From: Sourav Casiano DO PCP: Dr. Eh Huddleston MD Status:ADM I N [facility] Reason for Visit Reason for Visit: Diagnoses [...] (Auto) 73.9 H, Lymph % (Auto) 15.4 L,[place] % (Auto) 10.2 H, Eos % (Auto) [...] team: 35-minute Charges/Coding Visit Charges Inpatient E&M: 95229 Subs Hosp L2 05/08/25 7616 Cosigner Signature (if applicable): CC: ~ Signed [facility]07-11-2025 Consult note Author Santhosh Livingston [facility] Note Date/Time May 07, 2025 5:04 pm [facility] Medical Records Department [address] [place] [address] Consultation - Orthopedics 05/07/25 1658 MR#: [id number] Acct: [id number] Name: GOGO WARE Heidi p #:[id number] : 1940 85 From: Santhosh nascimento DO PCP: Dr. Eh Huddleston MD Status:ADM I N Location: [place] [id number] HPI Consult Data Date of Consult: 05/07/25 HPI Narrative Reason for Consultation: Left femur fracture HPI Narrative: GOGO WARE, is a 85 F who presented to [facility] this morning after mechanical fall from [...] vomiting, chest pain or shortness of breath. 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 Qxao-ub-bvrvsusl degenerative changes of the visualized portions of the left knee. Reading Location: [id number] Femur X-Ray 05/07/25 07:24 IMPRESSION: A spiral [...] the visualized lower lumbar spine are seen. Ryxd-dq-trwkeqtv degenerative changes of the visualized portions of the left knee. Reading Location: [address] Assessment & Plan Assessment/Plan (1) Femoral [...] fluids. Ancef on-call to the OR. 05/07/25 1703 <Electronically signed by Santhosh Livingston DO> Cosigner Signature (if applicable): CC: Dr. Eh Huddleston MD~ Signed [facility] Work Phone: 1(704) 498-244007-11-2025 History and physical note Author Sourav Casiano [facility] Note Date/Time May 07, 2025 4:41 pm [facility] Medical Records Department [address] [place] [address] [place] [address] H&P Exam - Hospitalist 05/07/25 1676 MR#: [id number] Acct: [id number] Name: GOGO WARE p #:[id number] : 1940 85 From: Sourav Casiano DO PCP: Dr. Eh Huddleston MD Status:ADM I N Location: [address] - General General Date of Admission: 05/07/25 Date of Service: 05/07/25 Chief Complaint: Left leg injury, inability to ambulate HPI Narrative GOGO WARE, is a 85 F who presents to the emergency room at [facility] after sustaining a mechanical fall at [...] the patient wanted to be transferred to [facility] if possible due to the fact her finish filer was from the main campus but there was not a bed available and she ultimately decided to stay here and have it repaired here. Patient CBC is unremarkable, chemistry profile was unremarkable also. Patient will be admitted to [place] [address], she will be seen by orthopedic surgery most likely undergo ORIF of the left distal femur fracture. 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 Izzp-rj-ntvntrml degenerative changes of the visualized portions of the left knee. Reading Location: [address] Femur X-Ray 05/07/25 07:24 IMPRESSION: A [...] the visualized lower lumbar spine are seen. Mjgg-je-dxovqamy degenerative changes of the visualized portions of the left knee. Reading Location: [address] Assessment & Plan Assessment/Plan (1) Femoral [...] team: 55-minute Charges/Coding Visit Charges Inpatient E&M: 85582 Init Hosp L2 05/07/25 1641 <Electronically signed by Sourav Casiano DO> Cosigner Signature (if applicable): CC: Dr. Sourav Casiano DO; Dr. Eh Huddleston MD~ Signed [facility] Work Phone: 1(108) 395-420707-11-2025 Discharge summary Author José Manuel Casarez-Jean-Pierre [facility] Note Date/Time May 07, 2025 4:01 pm [facility] Medical Records Department [address] [place] [address] Emergency Department Summary 05/07/25 MR#: [id number] Acct: [id number] Name: GOGO WARE p #:[id number] : 1940 85 From: José Manuel Godinez ggett DO PCP: Dr. Eh Huddleston MD Status:ADM I N Location: [place] [address] HPI HPI - Fall History of Present [...] Psych: Cooperative, appropriate mood and affect [facility] Medical History Laceration of leg Closed head injury Abrasions of multiple sites Laceration of lip Pure hypercholesterolemia Nonrheumatic aortic (valve) stenosis Non-ST elevation (NSTEMI) myocardial infarction Old myocardial infarction Atherosclerotic heart disease of [place] coronary artery without angina pectoris Essential hypertension [...] replacement that was done in 1999 at [facility]. Her left hip replacement was done at [place] by Dr. Nunez in 2026. She no longer follows an orthopedic surgeon. Patient is on Eliquis however she denies any her head. No LOC. Therefore CT head and neckwill not be ordered. X-ray of the pelvis and femur were personally reviewed andinterpreted by me, ED physician. Patient has a distal left femoral spiral fracture that is partially overriding. Radiology in a [place] agreement. She hasbilateral hip prosthesis without injury [...] however patient wants to be transferred to [facility] as her finish filer is there. I did speak with Dr. Casiano about the patient. He accepted admission however we will wait for possible transfer. was updated as well. Will reach out to [facility] orthopedicteam. I was informed by our medical office receptionist assistant that if patient transfers to [facility] she will likely have to pay for the ambulance [id number] given that it is a patient request. [...] are waiting for the orthopedic physician from [facility]. I did receive a call back from [...] she would like me to try another [facility] facility such as [facility]. She is okay with being admitted here at [facility] for the surgery. Our hospitalist service [...] 79.6 H Lymph % (Auto) 13.4 L [place] % (Auto) 4.8 Eos % (Auto) 1.4 [...] the visualized lower lumbar spine are seen. Tmst-hr-eopvozme degenerative changes of the visualized portions of the left knee. Reading Location: [address] Femur X-Ray 05/07/25 07:24 IMPRESSION: A [...] the visualized lower lumbar spine are seen. Pqwm-cx-qhamnbtw degenerative changes of the visualized portions of the left knee. Reading Location: [address] Discharge Plan Disposition Disposition: Acute Care Hospital [facility] Discharge Date/Time: 05/07/25 15:10 What to do if you have Problems For any increased pain, shortness of breath, bleeding, nausea or vomiting, chestpain, or any unexpected problems, contact your Primary Care Provider. Call [facility] ([phone]) or report to the closest Emergency Room. Call 911 if necessary. 05/07/25 1601 <Electronically signed by José Manuel Guzman > Cosigner Signature (if applicable): CC: Dr. Eh Huddleston MD ~ Signed [facility] Work Phone: 1(453) 949-485707-11-2025 Consult note [facility] Medical Records Department [address] [place] [address] Consultation - Orthopedics 05/07/25 1658 MR#: [id number] Acct: [id number] Name: GOGO WARE p #:[id number] : 1940 85 From: Santhosh nascimento DO PCP: Dr. Eh Huddleston MD Status:ADM I N Location: [place] [address] HPI Consult Data Date of Consult: 05/07/25 HPI Narrative Reason for Consultation: Left femur fracture HPI Narrative: GOGO WARE, is a 85 F who presented to [facility] this morning after mechanical fall from [...] vomiting, chest pain or shortness of breath. 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 Qtde-st-liggxkyu degenerative changes of the visualized portions of the left knee. Reading Location: [address] Femur X-Ray 05/07/25 07:24 IMPRESSION: A [...] the visualized lower lumbar spine are seen. Aavt-hb-wspadylu degenerative changes of the visualized portions of the left knee. Reading Location: [address] Assessment & Plan Assessment/Plan (1) Femoral [...] applicable): CC: Dr. Eh Huddleston MD~ Signed [facility]07-11-2025 History and physical note [facility] Medical Records Department [address] [place] [address] H&P Exam - Hospitalist 05/07/25 1634 MR#: [id number] Acct: [id number] Name: GOGO WARE p #:[id number] : 1940 85 From: Sourav Casiano DO PCP: Dr. Eh Huddleston MD Status:ADM I N Location: [place] [address] HPI - General General Date of Admission: 05/07/25 Date of Service: 05/07/25 Chief Complaint: Left leg injury, inability to ambulate HPI Narrative GOGO WARE, is a 85 F who presents to the emergency room at [facility] after sustaining a mechanical fall at [...] the patient wanted to be transferred to [facility] if possible due to the fact her finish filer was from the main campus but there was not a bed available and she ultimately decided to stay here and haveit repaired here. Patient CBC is unremarkable, chemistry profile was unremarkable also. Patient will be admitted to [place] [address], she will be seen by orthopedic surgery most likely undergo ORIF of the left distal femur fracture. 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 Hiyl-co-llomzujb degenerative changes of the visualized portions of the left knee. Reading Location: [address] Femur X-Ray 05/07/25 07:24 IMPRESSION: A [...] the visualized lower lumbar spine are seen. Xjqv-az-uszcbtyu degenerative changes of the visualized portions of the left knee. Reading Location: [address] Assessment & Plan Assessment/Plan (1) Femoral [...] team: 55-minute Charges/Coding Visit Charges Inpatient E&M: 44762 Init Hosp L2 05/07/25 1641 Cosigner Signature (if applicable): CC: Dr. Sourav Casiano DO; Dr. Eh Huddleston MD~ Signed [facility]07-11-2025 Discharge summary [facility] Medical Records Department [address] [place] [address] Emergency Department Summary 05/07/25 MR#: [id number] Acct: [id number] Name: GOGO WARE p #:[id number] : 1940 85 From: José Manuel marie DO PCP: Dr. Eh Huddleston MD Status:ADM I N Location: [place] [address] HPI HPI - Fall History of Present [...] 15 Psych: Cooperative, appropriate mood and affect PFSH [facility] Medical History Laceration of leg Closed head injury Abrasions of multiple sites Laceration of lip Pure hypercholesterolemia Nonrheumatic aortic (valve) stenosis Non-ST elevation (NSTEMI) myocardial infarction Old myocardial infarction Atherosclerotic heart disease of [place] coronary artery without angina pectoris Essential hypertension [...] replacement that was done in 1999 at [facility]. Her left hip replacement was done at [place] by Dr. Nunez in 2026. She no longer follows an orthopedic surgeon. Patient is on Eliquis however she denies any her head. No LOC. Therefore CT head and neckwill not be ordered. X-ray of the pelvis and femur were personally reviewed andinterpreted by me, ED physician. Patient has adistal left femoral spiral fracture that is partially overriding. Radiology in a [place] agreement. She hasbilateral hip prosthesis without injury [...] however patient wants to be transferred to [facility] as her finish filer is there. I did speak with Dr. Casiano about the patient. He accepted admission however we will wait for possible transfer. was updated as well. Will reach out to [facility] orthopedicteam. I was informed by our medical office receptionist assistant that if patient transfers to [facility] she will likely have to pay for theambulance [id number] given that it is a patient request. [...] waiting for the orthopedic physi evan from [facility]. I did receive a call back from [...] she would like me to try another [facility] facility such as [facility]. She is okay with being admitted here at [facility] for the surgery. Our hospitalist service [...] 79.6 H Lymph % (Auto) 13.4 L [place] % (Auto) 4.8 Eos % (Auto) 1.4 [...] the visualized lower lumbar spine are seen. Gmnb-za-ebgillhq degenerative changes of the visualized portions of the left knee. Reading Location: [id number] Femur X-Ray 05/07/25 07:24 IMPRESSION: A spiral [...] the visualized lower lumbar spine are seen. Onlh-zd-bemgqgnp degenerative changes of the visualized portions of the left knee. Reading Location: [id number] Discharge Plan Disposition Disposition: Acute Care Hospital [facility] Discharge Date/Time: 05/07/25 15:10 What to do if you have Problems For any increased pain, shortness of breath, bleeding, nausea or vomiting, chestpain, or any unexpected problems, contact your Primary Care Provider. Call [facility] ([phone]) or report tothe closest Emergency Room. Call 911 if necessary. 05/07/25 1601 Cosigner Signature (if applicable): CC: Dr. Eh Huddleston MD ~ Signed [facility]07-11-2025 Evaluation note* Diagnosis Onset Date Resolution Status Admit Date Femoral distal fracture acute [facility]2024 1:32pm [facility] Work Phone: 1(116) 860-925007-11-2025 Evaluation note* Diagnosis Onset Date Resolution Status Admit Date Femoral distal fracture inactive [facility]2024 1:32pm Coronary artery disease acute [facility]2024 2:44pm Debility acute May 14 2:44pm DVT (deep venous thrombosis) acute May 14, 2025 2:44pm Essential (primary) hypertension acu te May 14, 2025 2:44pm Glaucoma acute May 14 2:44pm Hyperlipidemia acute May 14, 2025 2:44pm Insomnia acute May 14 2:44pm Stroke acute May 14 2:44pm Femoral distal fracture inactive [facility] 2024 2:44pm [facility] Work Phone: [phone] Evaluation note* Diagnosis Onset Date Resolution Status [...] 2:44pm Femoral distal fracture inactive 2024 2:44pm [facility] Work Phone: 1(537) 326-829607-11-2025 Evaluation note* Diagnosis Onset Date Resolution Status [...] resolved 2024 2:44pm Femoral distal fracture inactive 2024 2:44pm [facility] Work Phone: 1(391) 487-948007-11-2025 Evaluation note* Diagnosis Onset Date Resolution Status Admit Date Femoral distal fracture inactive 2024 1:32pm Coronary artery disease acute 2024 2:44pm Debility acute May 14 2:44pm DVT (deep venous thrombosis) acute May 14, 2025 2:44pm Essential (primary) hypertension acute May 14, 2025 2:44pm Glaucoma acute May 14 2:44pm Hyperlipidemia acute May 14, 2025 2:44pm Insomnia acute May 14 2:44pm Stroke acute May 14 2:44pm Urinary retention acute May 142024 2:44pm Urinary tract infection resolved J 2024 2:44pm Femoral distal fracture inactive J 2024 2:44pm History of Clostridioides difficile colitis acute June 23, 2 025 10:57am [facility] Work Phone: [phone] Rad[address] Diagnostic study note [facility] Imaging Services [address] [place], [place] [address] Femur Min 2 Views MR#: [id number] Acct: [id number] Name: GOGO WARE Rep #: [id number] : 1940 F 85 From: Matt Bryant MD PCP: Dr. Eh Huddleston MD Status: PRE E R Study:Femur Min 2 Views Date of Exam: Exam# [id number] Ordering Dr: José Manuel Jean DO PROCEDURE: [...] the visualized lower lumbar spine are seen. Lywf-vt-gnchhmnz degenerative changes of the visualized portions of the left knee. Reading Location: [address] CC: Dr. José Manuel Guzman DO; Dr. Eh Huddleston MD ~ Feed Crusher: Signed [facility]07-11-[address]25 Radiology Diagnostic study note [facility] Imaging Services [address] [place] [address] Pelvis 1 or 2 Views MR#: [id number] Acct: [id number] Name: GOGO WARE Rep #: [id number] : 1940 F 85 From: Matt Bryant MD PCP: Dr. Eh Huddleston MD Status: PRE E R Study:Pelvis 1 or 2 Views Date of Exam: 05/07/25 Exam# [id number] Ordering Dr: José Manuel Jean DO PROCEDURE: [...] the visualized lower lumbar spine are seen. Mlkp-eo-miyqltmt degenerative changes of the visualized portions of the left knee. Reading Location: [address] CC: Dr. José Manuel Guzman DO; Dr. Eh Huddleston MD ~ Feed Crusher: Signed [facility]05-30-2025 Telephone encounter Note* Telephone Encounter - Raven Zazueta - 03/26/2025 10:51 AM EDT Call from pharmacy requesting refill. Requested Prescriptions Pending Prescriptions Disp Refills apixaban (ELIQUIS) 5 mg tab(s) 60 tablet 2 Sig: Take 1 tablet by mouth two times a day. Patient last seen 08/31/24 Raven Zazueta [facility]05-30-2025 Miscellaneous Notes* Telephone Encounter - Raven Zazueta - 03/26/2025 10:51 AM EDT Call from pharmacy requesting refill. Requested Prescriptions Pending Prescriptions Disp Refills apixaban (ELIQUIS) 5 mg tab(s) 60 tablet 2 Sig: Take 1 tablet by mouth two times a day. Patient last seen 08/31/24 Raven Zazueta documented in this encounterAs[facility]05-15-2025 Telephone encounter Note * Telephone Encounter - Deng Smith APRN.CNP - 03/11/2025 12:21 PM EDT Completed request reportedly approved [facility] Work Phone: 1(359) 276-749305-15-2025 Miscellaneous Notes* Telephone Encounter - Deng Smith APRN.CNP - 03/11/2025 12:21 PM EDT Completed request reportedly approved * Telephone Encounter - Lori Santamaria - 03/11/2025 11:16 AM EDT Images from the original note were not included. Received faxed PA request from pharmacy for Taj BIN #[id number] ANDREW#[id number] ID: [id number] Group: [id number] documented in this encounterAshtabula [facility]05-15-2025 Telephone encounter Note * Telephone Encounter - Lori Santamaria - 03/11/2025 11:16 AM EDT Images from the original note were not included. Received faxed PA request from pharmacy for Eliquis BIN #[id number] RYANN#[id number] ID: [id number] Group: [id number] [address]09-2025 Telephone encounter Note* Telephone Encounter - Lucy Mccall APRN.CNP - 03/05/2025 2:36 PM EDT Spoke with patient's friend, Marni. 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 She is going to assist her in applying for a copay card. If she doesn't qualify, we discussed the possibility of switching to Coumadin. They will reach out to the office if a switch is needed. Lucy Mccall APRN.CNP [facility] Work Phone: [phone]) 147-793805-09-2025 Miscellaneous Notes* Telephone Encounter - Lucy Mccall APRN.CNP - 03/05/2025 2:36 PM EDT Spoke with patient's friend, Marni. 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 She is going to assist her in applying for a copay card. If she doesn't qualify, we discussed the possibility of switching to Coumadin. They will reach out to the office if a switch is needed. Lucy Mccall APRN.CNP documented in this encounterAshtabula [facility]05-08-2025 Telephone encounter Note * Telephone [...] up in 1 year. Lucy Mccall APRN.CNP [facility]05-08-2025 Miscellaneous Notes* Telephone Encounter - [...] year. Lucy Mccall APRN.CNP documented in this encounterAshtabula [facility] Center05-06-2025 Instructions* Patient Instructions* Lucy Mccall [...] 911. Lucy Mccall APRN.CNP documented in this encounterAshtabula [facility] Center05-06-2025 History of Present illness Narrative* Lucy Mccall APRN.CNP - 03/02/2025 1:00 PM EDT Images from the original note were not included. [facility] [facility] Department of Cardiovascular Medicine SECTION OF INTERVENTIONAL CARDIOLOGY OUTPATIENT VISIT DATE March 01, 2025 OUTPATIENT VISIT TYPE ESTABLISHED FOLLOW UP Primary Book Agent: Dr. Wells Chief Complaint: Patient here for cardiac follow up evaluation History of Present Illness: Patient is a 84 year old female who presents for follow up visit today. Past medical history includes: Aortic stenosis -10/30/2024: s/p TF TAVR with a 23mm Newell Jerry S3 and Stenting of the R-[employer] FABRICATOR with a 8.0 x 39 mm Neon VBX Balloon expandable stent by Dr. Wells [...] 23mm Newell Jerry S3 andStenting of the R-[employer] FABRICATOR with a 8.0 x 39 mm Neon VBX Balloon expandable stent by Dr. Wells. [...] in the left eye daily at bedtime. ujwgvmo-qbbnwzvjs-krqswcpq,PF (DVA-WRPO-NQC) 0.5-0.15-2 % ophthalmic solution Use 1 Drop [...] 4lbs from your dry weight, call your finish filer Exercise: Be active and exercise every day. Smoking and alcohol abstinence/cessation, if applicable Heart Failure Education Booklet: information given previously. Please Visit [email or web address] Questions or Concerns after you go home? Please call Nurse director transportation line at . I spent a total of 40 minutes on the date of the service which included preparing to see the patient, xzaq-qa-dewr patient care, completing clinical documentation, obtaining and/or reviewing separately obtained history, performing a medically appropriate examination, and ordering medications, tests, or procedures. Lucy Mccall APRN.CNP documented in this encounterAshtabula [facility] Center05-06-2025 NoteHNO ID: [id number] Author: LUCY MCCALL APRN.CNP Service: ? Author Type: Nurse Practitioner Type: Progress Notes Filed: 03/02/2025 13:41 Note Text: [facility] [place] [facility] Department of Cardiovascular Medicine SECTION OF INTERVENTIONAL CARDIOLOGY OUTPATIENT VISIT DATE March 01, 2025 OUTPATIENT VISIT TYPE ESTABLISHED FOLLOW UP Primary Book Agent: Dr. Wells Chief Complaint: Patient here for cardiac follow up evaluation History of Present Illness: Patient is a 84 year old female who presents for follow up visit today. Past medical history includes: Aortic stenosis -10/30/2024: s/p TF TAVR with a 23mm Newell Jerry S3 and Stenting of the R-[employer] FABRICATOR with a 8.0 x 39 mm Neon VBX Balloon expandable stent by Dr. Wells [...] Newell Jerry S3 and Stenting of the R-[employer] FABRICATOR with a 8.0 x 39 mm Neon VBX Balloon expandable stent by Dr. Wells. [...] in the left eye daily at bedtime. eyzhqbo-hnnypzhxx-aleumiqk,PF (LAU-NSBE-AXC) 0.5-0.15-2 % ophthalmic solution Use 1 Drop [...] for this visit. (more content not included)... [facility]05-06-2025 History of Present illness Narrative* Chyna [...] PATIENT PRESENTS WITH AN IMPLANTABLE OR ATTACHED WET POUR MIXER: No RADIOLOGY DEPARTMENT: CT; Exam(s) Completed: Cardiac PERIPHERAL IV DATA: Site assessment: Clean,Dry and Intact, Site disposition Discontinued SIGNED BY: RT Brewster (R) March 02, 2025 12:32 PM documented in this encounterAshtabula [facility] Center05-06-2025 NoteHNO ID: [id number] Author: DANIELLE BUENO RT (R) Service: Radiology Author Type: Technologist [...] PATIENT PRESENTS WITH AN IMPLANTABLE OR ATTACHED WET POUR MIXER: No RADIOLOGY DEPARTMENT: CT; Exam(s) Completed: Cardiac PERIPHERAL IV DATA: Site assessment: Clean,Dry and Intact, Site disposition Discontinued SIGNED BY: ZAC Brewster) March 02, 2025 12:32 [facility]05-06-2025 NoteHNO ID: [id number] Author: CHYNA MENESES RN Service: Nursing Author [...] Ware DATE: March 02, 2025 TIME: 12:16 [facility]05-05-2025 Telephone encounter Note* Telephone Encounter - Raven Zazueta - 03/01/2025 9:25 AM EDT Called patient back and told her fasting was not necessary [facility]05-05-2025 Miscellaneous Notes* Telephone Encounter - Raven Zazueta - 03/01/2025 9:25 AM EDT Called patient back and told her fasting was not necessary documented in this encounterAshtabula [facility] Center05-05-2025 Telephone encounter Note * Telephone Encounter - Raven Zazueta - 03/01/2025 9:15 AM EDT Althea had questions about the three different labs she is having done tomorrow morning. Patient wanted to clarify that the tests were not duplicates. Patient also asked if she had to fast before labs. I instructed the patient to fast for 12 hours prior to labs. [facility]05-05-2025 Miscellaneous Notes* Telephone Encounter - Rvaen Zazueta - 03/01/2025 9:15 AM EDT Althea had questions about the three different labs she is having done tomorrow morning. Patient wanted to clarify that the tests were not duplicates. Patient also asked if she had to fast before labs. I instructed the patient to fast for 12 hours prior to labs. documented in this encounterAshtabula County Medical Center03-14-2025 Telephone encounter Note * Telephone Encounter - Lita Lora - 01/08/2025 2:34 PM EDT Images from the original note were not included. Notes and reports sent to [facility] cardiac rehab, along with order [facility]03-14-2025 Miscellaneous Notes* Telephone Encounter - Lita Lora - 01/08/2025 2:34 PM EDT Images from the original note were not included. Notes and reports sent to [facility] cardiac rehab, along with order documented in this encounterAshtabula County Medical Center03-12-2025 NoteHNO ID: [id number] Author: ?, ?, ? Service: ? Author Type: ? Type: Progress Notes Filed: 01/06/2025 09:43 Note Text: Summary: KCCQ-12 AMB TVT FOLLOWUP: Follow Up Type: Phone Call Call Attempt: 1st Attempt Call Status: Questionnaire Answered Dawes Cardiomyopathy Questionnaire (KCCQ-12) 1. How much you [...] limit at all B. 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 Visiting family or friends out of your home: 5 - Did not limit at all [facility]03-12-2025 History of Present illness Narrative* Jenelle Donohue - 01/06/2025 9:31 AM EDTSummary: KCCQ-12 AMB TVT FOLLOWUP: Follow Up Type: Phone Call Call Attempt: 1st Attempt Call Status: Questionnaire Answered Dawes Cardiomyopathy Questionnaire (KCCQ-12) 1. How much you [...] limit at all B. 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 Visiting family or friends out of your home: 5 - Did not limit at all documented in this encounterAshtabula County Medical Center03-12-2025 NotePatient Outreach (CIUMN) GOGO WARE ([id number]) 1940 F Date Time Provider Department 01/06/25 JENELLE DONOHUE During your visit today, we recorded the following information about you: Jenelle Donohue 01/06/2025 9:43 AM Signed AMB TVT FOLLOWUP: Follow Up Type: Phone Call Call Attempt: 1st Attempt Call Status: Questionnaire Answered Dawes Cardiomyopathy Questionnaire (KCCQ-12) 1. How much you [...] limit at all B. 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 - jvvdhfr-afmdbtytq-yimphydg,PF (GMQ-UBZA-WBA) 0.5-0.15-2 % ophthalmic solution Use 1 Drop [...] hypertension [I10] 09/09/2017 Coronary artery disease involving [place]*04/07/2024 Insomnia [G47.00] 04/07/2024 Glaucoma [H40.9] 04/07/2024 Nonrheumatic aortic valve stenosis [I35.0] 04/07/2024 Acute on chronic diastolic congestive heart [place]*10/29/2024 Severe aortic stenosis [I35.0] 10/30/2024 S/P TAVR (transcatheter aortic valve replacemen*10/30/2024 Encounter Status:Closed by JENELLE DONOHUE on 01/06/25[facility] 12-24-[facility] Telephone encounter Note* Telephone Encounter - Lucy Mccall APRN.CNP - 12/24/2024 2:10 PM EST Sent to scheduling. Lucy Mccall APRN.CNP [facility] Work Phone: 1(571) 850-488602-27-2025 Miscellaneous Notes* Telephone Encounter - Lucy Mccall APRN.CNP - 12/24/2024 2:10 PM EST Sent to scheduling. Lucy Mccall APRN.CNP * Telephone Encounter - Chuckie Wells RN - 12/24/2024 1:03 PM EST [facility] [place] Phone Encounter DATE of SERVICE: 12/24/2024 TIME of SERVICE: 1:03 PM Status: Non-urgent, needs attention Service/Provider: Odilon Clifton MD Reason for call: Follow-up Appointment Contact information: [phone] Resolution: Sent to [employer]inder Comments: Pt family member is trying to schedule below papi and CT per instructions from yesterdays visit, see below. She states she has been transferred multiple times and still not been able to schedule appointment. Per OVN 12/23 with Deng Smith Follow up/Disposition: Cardiac rehab referral placed CT Cardiac W/ IV Contrast to assess for HALT--will have follow up appointment with Interventional [facility] [employer] [facility] directly afterwards---[phone] With cardiology as scheduled/requested- sooner if needed. Will need Arterial Doppler and PVR at 3 mo Chuckie Wells RN Date of Resolution: 12/24/2024 Time of Resolution 1:03 PM documented in this encounterAshtabula [facility] Center02-27-2025 Telephone encounter Note * Telephone Encounter - Chuckie Wells RN - 12/24/2024 1:03 PM EST [facility] [place] Phone Encounter DATE of SERVICE: 12/24/2024 TIME of SERVICE: 1:03 PM Status: Non-urgent, needs attention Service/Provider: Odilon Clifton MD Reason for call: Follow-up Appointment Contact information: [phone] Resolution: Sent to [employer] Comments: Pt family member is trying to [...] up appointment with Interventional Cariology [facility] directly afterwards---[phone] With cardiology as scheduled/requested- sooner if needed. Will need Arterial Doppler and PVR at 3 mo Chuckie Wells RN Date of Resolution: 12/24/2024 Time of Resolution 1:03 PM [facility]02-26-20[facility] Instructions* Patient Instructions* Deng Smith APRN.CNP - [...] up appointment with Interventional Cariology [facility] directly afterwards---[phone] With cardiology as scheduled/requested- sooner if needed. [...] 4lbs from your dry weight, call your finish filer Exercise: Be active and exercise every day. Smoking and alcohol abstinence/cessation, if applicable Heart Failure Education Booklet: information given previously. Please Visit [email or web address] Questions or Concerns after you go home? Please call Nurse director transportation line at . documented in this encounterAshtabula County Medical Center02-26-2025 History of Present illness Narrative* Deng Smith APRN.CNP - 12/23/2024 1:30 PM EST Images from the original note were not included. [facility] [place] [facility] Department of Cardiovascular Medicine SECTION OF INTERVENTIONAL CARDIOLOGY OUTPATIENT VISIT DATE December 23, 2024 OUTPATIENT VISIT TYPE ESTABLISHED FOLLOW UP Primary Book Agent: Russell Donald MD Chief Complaint: Patient here [...] TAVR 23 S3 and Stenting of the R[employer] FABRICATOR with a 8.0 x 39 mm Neon VBX Balloon expandable stent, RLE Arterial Doppler and PVR completed, right [employer] FABRICATOR stent patent HFpEF (EF 64%) HTN HLD [...] mo,6 mo and 12 months after procedure. Ddstetn36 mg daily DAPT plavix 75 mg daily [...] up appointment with Interventional Cariology [facility] directly afterwards---[phone] With cardiology as scheduled/requested- sooner if needed. [...] 4lbs from your dry weight, call your finish filer Exercise: Be active and exercise every day. Smoking and alcohol abstinence/cessation, if applicable Heart Failure Education Booklet: information given previously. Please Visit [email or web address] Questions or Concerns after you go home? Please call Nurse director transportation line at . I spent a total of >40 minutes on the date of the service which included preparing to see the patient, cupc-yc-xhkv patient care, completing clinical documentation, obtaining and/or reviewing separately obtained history, performing a medically appropriate examination, counseling and educating the patient/family/caregiver, independently interpreting results (not separately reported), and communicating results to the patient/family/caregiver. Deng Smith APRN.JACEY documented in this encounterAshtabula [facility] Center02-26-2025 NoteHNO ID: [id number] Author: DENG SMITH APRN.CNP Service: ? Author Type: Nurse Practitioner Type: Progress Notes Filed: 12/23/2024 14:15 Note Text: [facility] [place] [facility] Department of Cardiovascular Medicine SECTION OF INTERVENTIONAL CARDIOLOGY OUTPATIENT VISIT DATE December 23, 2024 OUTPATIENT VISIT TYPE ESTABLISHED FOLLOW UP Primary Book Agent: Russell Donald MD Chief Complaint: Patient here [...] TAVR 23 S3 and Stenting of the [employer] FABRICATOR with a 8.0 x 39 mm Neon VBX Balloon expandable stent, RLE Arterial Doppler and PVR completed, right [employer] FABRICATOR stent patent HFpEF (EF 64%) HTN HLD [...] mo,6 mo and 12 months after procedure. Jelakls80 mg daily DAPT plavix 75 mg daily starting 10/31/2024 AC N/A Post procedural antibiotic for 3-7 days and the SBE prophylaxis. Beta Amdhu: coreg 12.5 mg twice daily ACEI/ARB/ARNI valsartan [...] up appointment with Interventional Cariology [facility] directly afterwards---[phone] With cardiology as scheduled/requested- sooner if needed. [...] 4lbs from your dry weight, call your finish filer Exercise: Be active and exercise every day. Smoking and alcohol abstinence/cessation, if applicable Heart Failure Education Booklet: information given previously. Please Visit [email or web address] Questions or Concerns after you go home? Please call Nurse director transportation line at . I spent a total of >40 minutes on the date of the service which included preparing to see the patient, mfge-nj-xrlc patient care, completing clinical documentation, obtaining and/or reviewing separately obtained history, performing a medically appropriate (more content not included)...[facility]01-14-2025 Instructions* Patient Instructions* Deng Koenig APRN.CNP - 11/10/2024 10:05 AM EST No longer required to have restrictions Start cardiac rehab 3-4 weeks post procedure Continue medications as prescribed Follow-up as scheduled Deng Koenig APRN.CNP documented in this encounterAshtabula [facility] Center01-14-2025 History of Present illness Narrative* Deng Koenig APRN.CNP - 11/10/2024 9:45 AM EST Images from the original note were not included. [facility] [place] [facility] Department of Cardiovascular Medicine SECTION OF INTERVENTIONAL CARDIOLOGY OUTPATIENT VISIT DATE November 10, 2024 OUTPATIENT VISIT TYPE ESTABLISHED FOLLOW UP Primary Book Agent: Dr. Lindo Chief Complaint: Patient here for [...] TAVR 23 S3 and Stenting of the R-[employer] FABRICATOR with a 8.0 x 39 mm Neon VBX Balloon expandable stent, RLE Arterial Doppler and PVR completed, right [employer] FABRICATOR stent patent HFpEF (EF 64%) HTN HLD Glaucoma (left eye completely blind) Patient underwent TAVR 23 S3 and Stenting of the R-[employer] FABRICATOR with a 8.0 x 39 mm Neon VBX Balloon expandable stent on 10/30/[address] Wells. RLE Arterial Doppler and PVR completed, right [employer] FABRICATOR stent patent. Patient presents today for hospital [...] drainage noted. ECG completed and NSR with cioxvwkt0ws degree HB. Patient to follow-up next month [...] in the left eye daily at bedtime. vnzkrix-wfrrrcuzz-trtjuzyx,PF (MQP-OMZJ-WPA) 0.5-0.15-2 % ophthalmic solution Use 1 Drop [...] Arterial Access SITES: Upper extremity - RUE; AWARD CLERK no redness or swelling or drainage noted Groin - right; AWARD CLERK no redness or swelling or drainage noted [...] TAVR 23 S3 and Stenting of the R-[employer] FABRICATOR with a 8.0 x 39 mm Neon VBX Balloon expandable stent, RLE Arterial Doppler and PVR completed, right [employer] FABRICATOR stent patent HFpEF (EF 64%) HTN HLD Glaucoma (left eye completely blind) Patient underwent TAVR 23 S3 and Stenting of the R-[employer] FABRICATOR with a 8.0 x 39 mm Neon VBX Balloon expandable stent on 10/30/[address] Wells. RLE Arterial Doppler and PVR completed, right [employer] FABRICATOR stent patent. Patient presents today for hospital [...] drainage noted. ECG completed and NSR with lxlfnpsf0ob degree HB. Patient to follow-up next month [...] mo,6 mo and 12 months after procedure. Rtzykds48 mg daily DAPT plavix 75 mg daily [...] 4lbs from your dry weight, call your finish filer Exercise: Be active and exercise every day. Smoking and alcohol abstinence/cessation, if applicable Heart Failure Education Booklet: information given previously. Please Visit [email or web address] Questions or Concerns after you go home? Please call Nurse director transportation line at . I spent a total of >30 minutes on the date of the service which included preparing to see the patient, ojpx-lg-tvds patient care, completing clinical documentation, performing a medically appropriate examination, counseling and educating the patient/family/caregiver, ordering medications, tests,or procedures, independently interpreting results (not separately reported), and communicating results to the patient/family/caregiver. Deng Koenig APRN.CNP documented in this encounterAshtabula [facility] Center01-14-2025 NoteHNO ID: [id number] Author: DENG KOENIG APRN.JACEY Service: ? Author Type: Nurse Practitioner Type: Progress Notes Filed: 11/10/2024 10:24 Note Text: [facility] [place] [facility] Department of Cardiovascular Medicine SECTION OF INTERVENTIONAL CARDIOLOGY OUTPATIENT VISIT DATE November 10, 2024 OUTPATIENT VISIT TYPE ESTABLISHED FOLLOW UP Primary Book Agent: Dr. Lindo Chief Complaint: Patient here for [...] TAVR 23 S3 and Stenting of the R-[employer] FABRICATOR with a 8.0 x 39 mm Neon VBX Balloon expandable stent, RLE Arterial Doppler and PVR completed, right [employer] FABRICATOR stent patent HFpEF (EF 64%) HTN HLD Glaucoma (left eye completely blind) Patient underwent TAVR 23 S3 and Stenting of the R-[employer] FABRICATOR with a 8.0 x 39 mm Neon VBX Balloon expandable stent on 10/30/[address] Wells. RLE Arterial Doppler and PVR completed, right [employer] FABRICATOR stent patent. Patient presents today for hospital [...] in the left eye daily at bedtime. kkmrday-bcjooqtjq-lekibcru,PF (CGT-GNQW-SOP) 0.5-0.15-2 % ophthalmic solution Use 1 Drop [...] no edema noted Abdom (more content not included)...[facility]01-05-2025 NoteHNO ID: [id number] Author: CHALINO STOUT ? Service: Pharmacy Author Type: Trimmer Sorter Type: Plan of Care Filed: 11/01/2024 11:24 Note Text: PHARMACY BEDSIDE DELIVERY SERVICE Patient Name: Gogo Ware The marked outpatient medications were Filled at: [facility] and delivered to the patient's bedside [...] 30 mg Cap Commonly known as: RESTORIL mhjopgl-dpbgkcfxf-zhwhhyeo,PF 0.5-0.15-2 % ophthalmic solution Commonly known as: [id number] Use 1 Drop in the left eye [...] Provider. Chalino Stout November 01, 2024 9:46 [facility]01-05-2025 NoteHNO ID: [id number] Author: HELEN FORTE MD Service: Cardiovascular Medicine Author Type: Fellow Type: Progress Notes Filed: 11/01/2024 08:50 Note Text: INTERVENTIONAL CARDIOLOGY Post Intervention Progress Note PROCEDURE: Transfemoral TAVR with a 23 mm Newell Jerry S3 valve, stenting of R CANVAS GOODS FABRICATOR with 8.0 x 39 mm Neon VBX balloon expandable stent SUBJECTIVE: - No events overnight on telemetry. - No CP or SOB. - No issues with R CANVAS [employer] FABRICATOR access sites. - comfortable this AM; eager [...] (Final result) Narrative: Echocardiography Report: Transthoracic Echo [facility] Bedside Date of service: 10/30/2024 10:18:57 AM [...] 155.0 cm/s. The dimensio (more content not included)...[facility]01-04-2025 NoteHNO ID: [id number] Author: AZUL ELIZONDO MD Service: Cardiovascular Medicine Author Type: Physician Type: Plan of Care Filed: 10/31/2024 13:56 Note Text: INTERVENTIONAL CARDIOLOGY Post Intervention Progress Note PROCEDURE: Transfemoral TAVR with a 23 mm Newell Jerry S3 valve, stenting of R CANVAS GOODS FABRICATOR with 8.0 x 39 mm Neon VBX balloon expandable stent SUBJECTIVE: - No [...] 10/31/2024 1,611 (H) <450 pg/mL Final EKG: CO 202 (Baseline 212), QRS 98 (baseline 92) Echo: Pk/mn 15/09, no AI Last Echocardiogram ECHO Collected: 10/30/2024 10:18 AM (Final result) Narrative: Echocardiography Report: Transthoracic Echo [facility] [place] Bedside Date of service: 10/30/2024 10:18:57 AM [...] is no thickening. A (more content not included)...[facility]01-03-2025 NoteHNO ID: [id number] Author: CARLOS LOVE MD Service: Cardiovascular Medicine Author Type: Fellow Type: Plan of Care Filed: 10/30/2024 10:15 Note Text: Plan of care note: Gogo Ware is a 84 year old female [id number] with severe now s/p transfemoral TAVR with a #23 mm Newell Jerry S3 valve Stenting of RCFA with a 8.0 x 39 mm Neon VBX balloon [ deployed at 8 ATMs] expandable stent post dilated the proximal segment with a 8.0 x 40 mm Motion Picture Set Grip balloon. Access: 5/6 RRA > TR band, [...] Report Carlos Love MD PGY 8 Pager: [phone] Interventional Ob Scrub Tech Heart,Vascular and Thoracic [place] [facility] For communication after 5 pm on weekdays and after 12 pm on weekends, please page the following: - Clinical Cardiology patients on all floors: page [phone] - Other Cardiology patients on J5 and J6: page [phone] - Other Cardiology patients on J7 and J8: page [phone] 10-29-2024 Instructions* Patient Instructions* Kacy Jimenez APRN.MAINTENANCE PLANNER - 10/29/2024 1:51 PM EST Instructed to [...] into surgery. - No make-up or nail mauritian. If you have nail tips/wraps/gels, you will need to remove them from atleast one finger on each hand. This lets us keep track of your oxygen level during surgery. - No jewelry, including watches, wedding rings and any body jewelry. Questions about preparing for your procedure? Call your doctors office: Dr. Sly Jesus [phone] Dr. Milagros Lr [phone] Dr. Jim Aguilera [phone] Dr. Odilon Wells [phone] Activity Restrictions post procedure. Do not strain [...] your risk of future heart problems. For [facility] call [phone] to schedule after you are home from your procedure. If you do not receive your referral, please call your finish filer's office for the order. Kacy Jimenez APRN.CNS documented in this encounterAshtabula County Medical Center01-02-2025 History of Present illness Narrative* Kacy JimenezSKIP.MAINTENANCE PLANNER - 10/29/2024 1:00 PM EST Images from the original note were not included. Heart [facility] [place] [facility] Department of Cardiovascular Medicine SECTION OF INTERVENTIONAL CARDIOLOGY OUTPATIENT VISIT DATE October 29, 2024 OUTPATIENT VISIT TYPE ESTABLISHED FOLLOW UP Primary Book Agent: Dr. Lindo Chief Complaint: Patient here for [...] first degree AVB Vent. rate 60 BPM CO interval 212 ms QRS duration 92 ms [...] Abs Lymph 1.00 - 4.00 k/uL 1.45 [place]% % 9.0 Abs [place] <0.87 k/uL 0.44 Eosin% % 2.7 Abs [...] into surgery. - No make-up or nail mauritian. If you have nail tips/wraps/gels, you will need to remove them from atleast one finger on each hand. This lets us keep track of your oxygen level during surgery. - No jewelry, including watches, wedding rings and any body jewelry. Questions about preparing for your procedure? Call your doctors office: Dr. Sly Jesus [phone] Dr. Milagros Lr [phone] Dr. Jim Aguilera [phone] Dr. Odilon Wells [phone] Activity Restrictions post procedure. Do not strain [...] your risk of future heart problems. For [facility] call [phone] to schedule after you are home from your procedure. If you do not receive your referral, please call your finish filer's office for the order. I spent a total of 40- minutes on the date of the service which included preparing to see the patient, hrrz-sv-olgs patient care, completing clinical documentation, performing a medically appropriateexamination, ordering medications, tests, or procedures, independently interpreting results (not sep arately reported), and communicating results to the patient/family/caregiver. Kacy Jimenez APRN.CNS documented in this encounterAshtabula County Medical Center01-02-2025 NoteHNO ID: [id number] Author: KACY JIMENEZ APRN.CNS Service: ? Author Type: Nurse Specialist Type: Progress Notes Filed: 10/29/2024 14:10 Note Text: Heart and Vascular [place] [facility] Department of Cardiovascular Medicine SECTION OF INTERVENTIONAL CARDIOLOGY OUTPATIENT VISIT DATE October 29, 2024 OUTPATIENT VISIT TYPE ESTABLISHED FOLLOW UP Primary Book Agent: Dr. Lindo Chief Complaint: Patient here for [...] first degree AVB Vent. rate 60 BPM CO interval 212 ms QRS duration 92 ms [...] Abs Lymph 1.00 - 4.00 k/uL 1.45 [place]% % 9.0 Abs [place] <0.87 k/uL 0.44 Eosin% % 2.7 Abs [...] 10/[address] Kamara (more content not included)...[facility]01-02-2025 NoteHNO ID: [id number] Author: CHARLES GARCIA MD Service: ? 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 Feed Crusher: ESTIVEN Transcribe Date/Time: Oct 29 2024 10:42A [...] and consent discussed: yes. Patient / Responsible Libertarian agrees to proceed: yes Patient / Surrogate agrees to blood products: Yes Instructions Given to Patient: Instructions located in the after visit summary. Patient given verbal and written preop instructions and voices comprehension and compliance. Signature: Charles Garcia MD Patient Name: Gogo Ware Date: October 29, 2024 Time: 12:49 PM Pager/Contact #: documented in this encounterAshtabula County Medical Center01-02-2025 History of Present illness Narrative* [...] PATIENT PRESENTS WITH AN IMPLANTABLE OR ATTACHED WET POUR MIXER: No RADIOLOGY DEPARTMENT: General X-ray: Exam(s) Completed: Chest X-Ray PERIPHERAL IV DATA: Not applicable SIGNED BY: RT Rhonda(Anh) October 29, 2024 9:21 AM documented in this encounterAshtabula County Medical Center01-02-2025 NoteHNO ID: [id number] Author: ELBA GLEZ RT(R) Service: Radiology Author [...] PATIENT PRESENTS WITH AN IMPLANTABLE OR ATTACHED WET POUR MIXER: No RADIOLOGY DEPARTMENT: General X-ray: Exam(s) Completed: Chest X-Ray PERIPHERAL IV DATA: Not applicable SIGNED BY: RT Rhonda(R) October 29, 2024 9:21 [facility]12-11-2024 NoteHNO ID: [id number] Author: LUBA LLANES APRN.DATA LIBRARIAN Service: ? Author Type: Nurse Practitioner Type: [...] Dr. Aguilera): Carvedilol Luba Llanes APRN.JACEY [facility], Please schedule Gogo Ware, [phone] for COMMERCIAL TF- TAVR S3 vs ROMEL Procedure on: 10/30/2024 Lab/CXR/EKG Appointment: 10/29/2024 Please schedule HR AVR CLINIC/ Visit on: 10/29/2024 Date of J4-1 Anesthesia only: 10/29/[address] Structural lab schedule on : 10/30/2023 at 5:30 AM CPT Code: 91797 DX code: I35.0 ITALIAN TEACHER: Dr. Wells Performing Physician: Dr. Wells OR: 81 Surgeon: Dr. Arteaga Please schedule bed reservation for post procedure-(should be a TCI) MELISSA schedule- intra/op Patient also needs INSURANCE PRECERTIFICATION ADL SCORE 6__ SURVIVAL RATE GREATER THAN 1 YEAR____Y___(LOOKING FOR A YES) EF ___60__(GREATER THAN 50%) KCCQ-12: completed 15 Ft W: completed Thank you. Request sent to scheduling. Luba Llanes APRN.[facility]YAv[facility]12-[facility] History of Present illness Narrative* Luba Llanes APRN.[facility] - 10/07/2024 3:59 PM EST I spoke [...] Dr. Aguilera): Carvedilol Luba Llanes APRN.JACEY [facility], Please schedule Gogo Ware, [phone] for COMMERCIAL TF- TAVR S3 vs ROMEL Procedure on: 10/30/2024 Lab/CXR/EKG Appointment: 10/29/2024 Please schedule HR AVR CLINIC/ Visit on: 10/29/2024 Date of J4-1 Anesthesia only: 10/29/[address] Structural lab schedule on : 10/30/2023 at 5:30 AM CPT Code: 48113 DX code: I35.0 ITALIAN TEACHER: Dr. Wells Performing Physician: Dr. Wells OR: 81 Surgeon: Dr. Arteaga Please schedule bed reservation for post procedure-(should be a TCI) MELISSA schedule- intra/op Patient also needs INSURANCE PRECERTIFICATION ADL SCORE 6__ SURVIVAL RATE GREATER THAN 1 YEAR____Y___(LOOKING FOR A YES) EF ___60__(GREATER THAN 50%) KCCQ-12: completed 15 Ft W: completed Thank you. Request sent to scheduling. Luba Llanes APRN.CNP documented in this encounterAshtabula County Medical Center11-20-2024 Telephone encounter Note * Telephone Encounter - Greg Nash APRN.CNP - 09/16/2024 8:31 AM EST Images from the original note were not included. [facility] Work Phone: [phone] Miscellaneous Notes* Telephone Encounter - Greg Nash APRN.CNP - 09/16/2024 8:31 AM EST Images from the original note were not included. documented in this encounterAshtabula County Medical Center11-18-2024 NoteHNO ID: [id number] Author: KACY JIMENEZ APRN.MAINTENANCE PLANNER Service: ? Author Type: Nurse Specialist Type: Progress Notes Filed: 09/14/2024 08:57 Note Text: Heart and Vascular [facility] Department of Cardiovascular Medicine SECTION OF INTERVENTIONAL CARDIOLOGY Date September 14, 2024 MULTI DISCIPLINARY TAVR TEAM MEETING weendy Teams Meeting Team members: Dr. Jesus, Dr. [...] be handled by: CVM coordinator. Kacy Jimenez APRN.[facility]11-18-2024 History of Present illness Narrative* Kacy Jimenez APRN.[facility] - 09/14/2024 8:52 AM EST Images from the original note were not included. Heart [facility] Vascular [facility] Department of Cardiovascular Medicine SECTION OF INTERVENTIONAL CARDIOLOGY Date September 14, 2024 MULTI DISCIPLINARY TAVR TEAM MEETING weendy Teams Meeting Team members: Dr. Jesus, Dr. Lr, Dr. Wells, Dr. Ruffin, Dr. Shook, Dr. Smith, Dr. Vallejo,Dr. Grace, Dr. Howell, Dr. Cherry, Dr. Love, Dr. Gee, Dr. Ohara, Dr. Forte, , Zoila Gonzalez, JACEY, Gina ALY, Effie DOW and T. Garcia, RN. PATIENT NAME: Gogo Ware DATE: [...] be handled by: CVM coordinator. Kacy Jimenez APRN.MAINTENANCE PLANNER documented in this encounterAshtabula County Medical Center11-13-2024 NoteHNO ID: [id number] Author: GENOVEVA ARTEAGA MD Service: ? Author Type: Physician Type: Progress Notes Filed: 09/09/2024 15:51 Note Text: Heart, Vascular and Thoracic [place] Adult Cardiac [facility] Template ID: [id number] SERVICE DATE: 09/09/2024 SERVICE TIME: 3:12 PM [...] Ware DATE: September 09, 2024 TIME: 3:12 [facility]11-13-2024 History of Present illness Narrative* Genoveva Arteaga MD - 09/09/2024 3:11 PM EST Heart, Vascular and Thoracic [place] [facility] Template ID: [id number] SERVICE DATE: 09/09/2024 SERVICE TIME: 3:12 PM [...] 2024 TIME: 3:12 PM documented in this encounterAshtabula County Medical Center11-13-2024 Instructions* Patient Instructions* Luba Llanes APRN.DATA LIBRARIAN - 09/09/2024 2:23 PM EST Your case will be discussed with the valve team on SaturdaySeptember 14. You will be contacted in about 2-3 weeks after the meeting to discuss the recommendations. If you have not heard from our office after that time, please feel free to contact Dr. Wells's office: [phone] Reminder: Please obtain dental clearance aamir. Have [...] your risk of future heart problems. For [facility] call [phone] to schedule after you are home from your procedure. If you do not receive your referral, please call your finish filer's office for the order. Luba Llanes APRN.JACEY documented in this encounterAshtabula County Medical Center11-13-2024 History of Present illness Narrative* Luba Llanes APRN.CNP - 09/09/2024 2:00 PM EST Images from the original note were not included. [facility] [place] [facility] Department of Cardiovascular Medicine SECTION [...] seeing Dr. Arteaga Gogo Ware is from [place] where she lives alone. Patient states that [...] AORTIC DIMENSIONS: AORTIC ROOT: 3.0 cm measured bhbfs-wu-ksesl STJ: 2.5 cm mid ASCENDING THORACIC AORTA: [...] the thoracic and lumbar spine.Bilateral hip arthroplasty Truck Farmer (topogram) images: No additional findings. Carotid Ultrasound [...] Abs Lymph 1.00 - 4.00 k/uL 1.90 [place]% % 8.6 Abs [place] <0.87 k/uL 0.54 Eosin% % 1.7 Abs [...] personally reviewed all of the above testing. [place] CARDIOMYOPATHY QUESTIONNAIRE (KCCQ-12) Activity: A. Showering/bathing: Extremely [...] for other reasons. B. 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 Luba Llanes APRN.CNP documented in this encounterAshtabula County Medical Center11-13-2024 NoteHNO ID: [id number] Author: LUBA LLANES APRN.CNP Service: ? Author Type: Nurse Practitioner Type: Progress Notes Filed: 09/09/2024 17:00 Note Text: [facility] [place] [facility] Department of Cardiovascular Medicine SECTION [...] seeing Dr. Arteaga Gogo Ware is from [place] where she lives alone. Patient states that [...] VALVE: appears trileaflet. Se (more content not included)...[facility]11-13-2024 NoteHNO ID: [id number] Author: TERRIE PRASAD RRT Service: ? Author Type: Registered Resp Therapist Type: Progress Notes Filed: 09/09/2024 12:31 Note Text: PULM FUNCTION: Provider: Kacy Jimenez APRN.MAINTENANCE PLANNER Spirometry: 1 DLCO[facility] History of Present illness Narrative * Terrie Prasad RRT - 09/09/2024 12:31 PM EST PULM FUNCTION: Provider: Kacy Jimenez APRN.MAINTENANCE PLANNER Spirometry: 1 DLCO: 1 documented in this encounterAshtabula County Medical Center11-13-2024 History of Present illness Narrative* [...] PATIENT PRESENTS WITH AN IMPLANTABLE OR ATTACHED WET POUR MIXER: No CREATININE: Creatinine Date Value Ref Range [...] radiation safety can be found usingthis link: [email or web address] 20Diagnostic%20Nuclear%20Medicine%20Procedures.pdf SIGNATURE: ZAC Sung) PATIENT NAME: Gogo Ware DATE: September 09, 2024 TIME: 11:17 AM PAGER/CONTACT #: documented in this encounterAshtabula County Medical Center11-13-2024 NoteHNO ID: [id number] Author: VEL WHALEN RT (R) Service: Radiology [...] PATIENT PRESENTS WITH AN IMPLANTABLE OR ATTACHED WET POUR MIXER: No CREATININE: Creatinine Date Value Ref Range [...] 1110 PATIENT DISCHARGED TO: Ambulatory patient, left AL department area. Is this a therapy: No A Diagnostic radioactive procedure has taken place, with no further precautions necessary other than routine body substance precautions. More information regarding radiation safety can be found using this link: [email or web address] 20Diagnostic%20Nuclear%20Medicine%20Procedures.pdf SIGNATURE: RT Pineda(R) PATIENT NAME: Gogo Ware DATE: September 09, 2024 TIME: 11:17 AM PAGER/CONTACT #:[facility]11-06-2024 Telephone encounter Note* Telephone Encounter - [...] Dawkins RN, RN. In Department of CARDIOLOGY. [facility]11-06-2024 Miscellaneous Notes* Telephone Encounter - [...] In Department of CARDIOLOGY. documented in this encounterAshtabula County Medical Center11-04-2024 History of Present illness Narrative* [...] PATIENT PRESENTS WITH AN IMPLANTABLE OR ATTACHED WET POUR MIXER: No RADIOLOGY DEPARTMENT: CT; Exam(s) Completed: Cardiac [...] 2024 TIME: 12:07 PM documented in this encounterAshtabula County Medical Center11-04-2024 NoteHNO ID: [id number] Author: CHLOÉ CONN RN Service: ? Author [...] Ware DATE: August 31, 2024 TIME: 12:07 [facility]11-04-2024 NoteHNO ID: [id number] Author: LIVE ESCALANTE RT(R) Service: Radiology Author [...] PATIENT PRESENTS WITH AN IMPLANTABLE OR ATTACHED WET POUR MIXER: No RADIOLOGY DEPARTMENT: CT; Exam(s) Completed: Cardiac PERIPHERAL IV DATA: Site assessment: Clean,Dry and Intact, Site disposition Discontinued SIGNED BY: RT Shoshana(R) August 31, 2024 12:40 [facility]11-04-2024 History of Present illness Narrative* Odilon Wells MD - 08/31/2024 11:12 AM EST Interventional Cardiology Staff Note Dr. Wells receives payments from several device companies for educational activities, advisory boardduties, consulting, and/or proctoring. The companies include: [employer], [employer], and [employer]. A product by [employer], [employer], [employer], or a competitor, may be used in this patient's care. Dr. Wells does not receive any money for products he or any other [facility] physicians prescribe or use. Dr. Wells's choice on which product used in this patient's case is or was not influenced by his relationship with any company. Dr. Wells selected the product that in his hands is believed to be the best option for this patient's treatment. This was discussed with the patient. Odilon Wells MD, MSc documented in this encounterAshtabula County Medical Center11-04-2024 NoteHNO ID: [id number] Author: ODILON WELLS MD Service: ? Author Type: Physician Type: Progress Notes Filed: 08/31/2024 11:12 Note Text: Interventional Cardiology Staff Note Dr. Wells receives payments from several device companies for educational activities, advisory board duties, consulting, and/or proctoring. The companies include: [employer], [employer], and [employer]. A product by [employer], [employer], [employer], or a competitor, may be used in this patient's care. Dr. Wells does not receive any money for products he or any other [facility] physicians prescribe or use. Dr. Wells's choice on which product used in this patient's case is or was not influenced by his relationship with any company. Dr. Wells selected the product that in his hands is believed to be the best option for this patient's treatment. This was discussed with the patient. Odilon Wells MD, MScAvita Health [facility]11-04-20[facility] History of Present illness Narrative* Odilon Wells MD - 08/31/2024 9:45 AM EST Images from the original note were not included. [facility] [place] [facility] Department of Cardiovascular Medicine SECTION OF INTERVENTIONAL CARDIOLOGY OUTPATIENT VISIT DATE August 31, 2024 OUTPATIENT VISIT TYPE NEW PRIMARY CARE PHYSICIAN: Berta Rankin [address] [address] REFERRING PHYSICIAN: James Lindo MD, PhD, [facility] Staff, Section of Cardiovascular Imaging Department of Cardiovascular Medicine [facility] and Vascular [facility] CHIEF COMPLAINT: TAVR evaluation HISTORY OF PRESENT ILLNESS: Ms. Ware is a 84 year old female from [place] who presents today for TAVR evaluation. She [...] (left eye completely blind) She lives in [facility], and she is very functionally active. [...] resulted at 1500. Her daughter lives in [place] and rest of her family in [facility]. PAST MEDICAL HISTORY Diagnosis Date Aortic valve [...] -Obtain lipid panel Marisol Bergeron MD PGY-6 Ob Scrub Tech I personally interviewed, confirmed and edited the above information as obtained by others. ----- [facility] STAFF PHYSICIAN NOTE OF PERSONAL INVOLVEMENT [...] has a baseline 1st degree AVB w CO 210 ms, and would be at higher [...] OF SERVICE: 10:06 AM documented in this encounterAshtabula County Medical Center11-04-2024 NoteHNO ID: [id number] Author: ODILON WELLS MD Service: ? Author Type: Physician Type: Progress Notes Filed: 08/31/2024 10:20 Note Text: [facility] [place] [facility] Department of Cardiovascular Medicine SECTION OF INTERVENTIONAL CARDIOLOGY OUTPATIENT VISIT DATE August 31, 2024 OUTPATIENT VISIT TYPE NEW PRIMARY CARE PHYSICIAN: Berta Rankin [address] [phone] REFERRING PHYSICIAN: James Lindo MD, PhD, [facility] Staff, Section of Cardiovascular Imaging Department of Cardiovascular Medicine [facility] [place] [facility] CHIEF COMPLAINT: TAVR evaluation HISTORY OF PRESENT ILLNESS: Ms. Ware is a 84 year old female from [place] who presents today for TAVR evaluation. She [...] (left eye completely blind) She lives in [facility], and she is very functionally active. [...] resulted at 1500. Her daughter lives in [place] and rest of her family in [facility]. PAST MEDICAL HISTORY Diagnosis Date Aortic valve [...] no S4, no heaves, (more content not included)...[facility]08-13-2024 Note HNO ID: [id number] Author: KACY JIMENEZ APRN.MAINTENANCE PLANNER Service: ? Author Type: Nurse Specialist Type: Progress Notes Filed: 06/09/2024 16:05 Note Text: TAVR STRUCTURAL REVIEW FORM Orders placed by Dr. Lindo on 05/22/2024 Records Reviewed: 06/09/2024 Appt request sent: 06/09/2024 I spoke with her on the phone. She lives alone and has a friend drive her for all of her appointments. her daughter lives in [place]; the rest of her family is in [place]. She is not interested in open hear surgery. She is very independent. She reports she doesn't have symptoms. however, I reviewed with her the results of her BNP and what this means in relation to her . She is agreeable to come for the evaluation. Records in [employer] have been reviewed. Severe . Request has been sent to the flight crew scheduler who will arrange an appointment schedule. [...] is an 84 year old female ( [place]) with pmhx of: HTN HLD glaucoma ( left eye completely blind) Records review Echo 04/15/2024 ( [place]): - The left ventricle is normal in [...] greater, then it should be by an [facility] ONLY (Dr. Schultz, Dr. Wells, Dr. Aguilera, [...] Dr. Doss/ Dr. Celaya /Dr. Genevieve Jimenez APRN.[facility] [facility] History of Present illness Narrative* Kacy Jimenez APRN.MAINTENANCE PLANNER - 06/09/2024 3:06 PM EDT TAVR STRUCTURAL REVIEW FORM Orders placed by Dr. Lindo on 05/22/2024 Records Reviewed: 06/09/2024 Appt request sent: 06/09/2024 I spoke with her on the phone. She lives alone and has a friend drive her for all of her appointments. her daughter lives in [place]; the rest of her family is in [place]. She is not interested in open hear surgery. She is very independent. She reports she doesn't have symptoms. however, I reviewed with her the results of her BNP and what this means in relation to her . She is agreeable to come for the evaluation. Records in [facility] have been reviewed. Severe . Request has been sent to the flight crew scheduler who will arrange an appointment schedule. [...] completely blind) Records review Echo 04/15/2024 ( [place]): - The left ventricle is normal in [...] greater, then it should be by an [facility] ONLY (Dr. Schultz, , Dr. Aguilera, Dr. [...] Dr. Doss/ Dr. Celaya /Dr. Genevieve Jimenez APRN.CNS documented in this encounterAshtabula [facility]07-30-2024 NoteHNO ID: [id number] Author: WALI TRIANA MD Service: ? Author [...] as before , follows with Dr. Roslyn byers mrx given can follow-up me prn next [...] all of its relevant components. Wali Triana, [facility]07-30-2024 History of Present illness Narrative* Wali Triana [...] same as before , follows with Dr.Perkins byers mrx given can follow-up me prn next [...] components. Wali Triana MD documented in this encounterAshtabula County Medical Center07-26-2024 Telephone encounter Note * Telephone Encounter - James Lindo MD - 05/22/2024 8:08 AM EDT She gets dyspnea when over-exerting, not with ordinary activities. NT pro BNP is significantly elevated. Will refer for consideration of TAVR. Patient agreeable. [facility]07-26-2024 Miscellaneous Notes* Telephone Encounter - James Lindo MD - 05/22/2024 8:08 AM EDT She gets dyspnea when over-exerting, not with ordinary activities. NT pro BNP is significantly elevated. Will refer for consideration of TAVR. Patient agreeable. documented in this encounterAshtabula County Medical Center07-02-2024 History of Present illness Narrative* James Lindo MD - 04/28/2024 1:45 PM EDT Images from the original note were not included. [facility] [place] Pam López Department of Cardiovascular Medicine SECTION OF CARDIOVASCULAR IMAGING OUTPATIENT VISIT DATE April 28, 2024 OUTPATIENT VISIT TYPE CONSULTATION PRIMARY CARE PHYSICIAN: To use this Smartlink, specify the provider ID whose address you want to display, e.g., .PROVADDR[1(where 1 is the provider ID). REFERRING PHYSICIAN Berta Rankin [address] [address] CHIEF COMPLAINT: Aortic stenosis HISTORY OF PRESENT ILLNESS/ NURSING INTAKE: Cardiac consultation at the request of Dr. Berta Rich. A copy of this consultation note will be provided to the requesting physician by way of shared Medical record or letter to requesting physician via US mail. Ms. Ware is a 84 year old female from [place], [place] here today for cardiovascular evaluation related [...] drives and does own groceries. Originally from [place], states she does not have any family [...] others. CONTACT INFORMATION: James Lindo MD, PhD, [facility] Staff, Section of Cardiovascular Imaging Department of Cardiovascular Medicine [facility] [place] [facility] documented in this encounterAshtabula County Medical Center07-02-2024 NoteHNO ID: [id number] Author: JAMES LINDO MD Service: ? Author Type: Physician Type: Progress Notes Filed: 04/28/2024 15:32 Note Text: [facility] [place] Pam López Department of Cardiovascular Medicine SECTION OF CARDIOVASCULAR IMAGING OUTPATIENT VISIT DATE April 28, 2024 OUTPATIENT VISIT TYPE CONSULTATION PRIMARY CARE PHYSICIAN: To use this Smartlink, specify the provider ID whose address you want to display, e.g., .PROVADDR[1 (where 1 is the provider ID). REFERRING PHYSICIAN Berta Rankin [address] [address] CHIEF COMPLAINT: Aortic stenosis HISTORY OF PRESENT ILLNESS/ NURSING INTAKE: Cardiac consultation at the request of Dr. Berta Rich. A copy of this consultation note will be provided to the requesting physician by way of shared Medical record or letter to requesting physician via US mail. Ms. Ware is a 84 year old female from [place], [place] here today for cardiovascular evaluation related [...] VICTOR M Hercules referred the patient to [facility] imaging for TAVR workup. She reports shortness [...] No jugular venous di (more content not included)...[facility]06-27-2024 Telephone encounter Note* Telephone Encounter - Azul Madrigal APRN.DATA LIBRARIAN - 04/23/2024 2:41 PM EDT I called the patient to discuss her upcoming appointments with the finish filer to evaluate for possible TAVR. The patient [...] the appointments. Also of note, Dr Lindo's administrative specialist left a message for Kenisha to call her to go overthe appointments and to assist her with the directions. SIERRA Garza [facility] Work Phone: [phone] Miscellaneous Notes* Telephone Encounter - Azul Madrigal APRN.CNP - 04/23/2024 2:41 PM EDT I called the patient to discuss her upcoming appointments with the finish filer to evaluate for possible TAVR. The patient [...] the appointments. Also of note, Dr Lindo's administrative specialist left a message for Kenisha to call her to go overthe appointments and to assist her with the directions. SIERRA Garza documented in this encounterAshtabula County Medical Center06-27-2024 Telephone encounter Note * Telephone Encounter - Vitor Toth - 04/23/2024 9:55 AM EDT Called patient's friend - Kenisha Hedrick, to provide appointment information. There was no answer,left voicemail requesting call back [facility]06-27-2024 Miscellaneous Notes* Telephone Encounter - Vitor Toth - 04/23/2024 9:55 AM EDT Called patient's friend - Kenisha Hedrick, to provide appointment information. There was no answer,left voicemail requesting call back documented in this encounterAshtabula County Medical Center06-25-2024 NoteHNO ID: [id number] Author: WALI TRIANA MD Service: ? Author [...] all of its relevant components. Wali Triana, [facility]06-25-2024 History of Present illness Narrative* Wali Triana MD - 04/21/2024 1:20 PM EDT (Z96.1) Pseudophakia (primary encounter diagnosis) Comment: 1 DAY POST-OP CATARACT SURGERY OS -Doing well - PREDNISOLONE ACETATE 1% QID operative eye - Ketorolac 0.5% QID operative eye - Routine precautions discussed - Shield at bedtime - No strenuous activity - Call AMAIR if new signs/symptoms/pain/vision loss - Follow up [...] components. Wali Triana MD documented in this encounterAshtabula County Medical Center06-25-2024 Telephone encounter Note * Telephone [...] me to reschedule if needed. Azul Madrigal APRN-JACEY [facility]06-25-2024 Miscellaneous Notes* Telephone Encounter - [...] if needed. SIERRA Garza documented in this encounterAshtabula County Medical Center06-20-2024 Telephone encounter Note * Telephone Encounter - Berta Rich PA-C - 04/16/2024 2:54 PM EDT Summary: Cardiac Surgery Referral Referral sent to severe aortic stenosis. Pt would like to proceed with TAVR. [facility]06-20-2024 Miscellaneous Notes* Telephone Encounter - Berta Rich PA-C - 04/16/2024 2:54 PM EDTSummary: Cardiac Surgery Referral Referral sent to severe aortic stenosis. Pt would like to proceed with TAVR. documented in this encounterAshtabula County Medical Center06-17-2024 Telephone encounter Note * Telephone Encounter - Berta Rich PA-C - 04/13/2024 8:15 AM EDT Summary: ECHO APPOINTMENT Called pt, and gave instructions and directions for echo on 04/15/24. [facility] Work Phone: [phone] Miscellaneous Notes* Telephone Encounter - Berta Rich PA-C - 04/13/2024 8:15 AM EDTSummary: ECHO APPOINTMENT Called pt, and gave instructions and directions for echo on 04/15/24. documented in this encounterAshtabula County Medical Center06-10-2024 Telephone encounter Note * Telephone Encounter - Wali Triana MD - 04/06/2024 8:31 PM EDT I sent her prescriptions to her pharmacy but nothing starts until after the surgery is complete (the day of surgery) [facility]06-10-2024 Miscellaneous Notes* Telephone Encounter - [...] to perform target plano documented in this encounterAshtabula County Medical Center06-10-2024 Telephone encounter Note * Telephone Encounter - Amrita Perea LPN - 04/06/2024 3:07 PM EDT Received last office visit and cardiac testing. Original sent to [facility] through Onbase scanning. Amrita Perea LPN [facility]06-10-2024 Miscellaneous Notes* Telephone Encounter - Amrita Perea LPN - 04/06/2024 3:07 PM EDT Received last office visit and cardiac testing. Original sent to [facility] through Onbase scanning. Amrita Perea LPN * Telephone Encounter - Amrita Perea LPN - 04/06/2024 2:16 PM EDT Fax request sent to [facility] requesting last office visit and cardiac testing for upcoming surgery 04/20/24. .Amrita Perea LPN * Telephone Encounter - Dorothy Han APRN.CNP - 04/06/2024 1:56 PM EDT Please request last cardiac OV and testing from [facility]. DOS 04/20/2024. documented in this encounterAshtabula County Medical Center06-10-2024 Telephone encounter Note * Telephone [...] possible PPV jg to perform target plano [facility] Work Phone: [phone]) 618-660806-10-2024 Telephone encounter Note* Telephone Encounter - Amrita Perea LPN - 04/06/2024 2:16 PM EDT Fax request sent to [facility] requesting last office visit and cardiac testing for upcoming surgery 04/20/24. .Amrita Perea LPN [facility]06-10-2024 Telephone encounter Note* Telephone Encounter - Dorothy Han APRN.CNP - 04/06/2024 1:56 PM EDT Please request last cardiac OV and testing from [facility]. DOS 04/20/2024. [facility]06-10-2024 Instructions* Patient Instructions* Dorothy Han APRN.CNP - 04/06/2024 1:09 PM EDT PATIENT PREOPERATIVE INSTRUCTIONS No ref. provider found has scheduled you for your procedure at this surgery center: [facility]: [phone] --[facility] [place], [address], [place] [address]. Please read below carefully for your personalized [...] Procedures: - YOU MUST HAVE A RESPONSIBLE HOTEL OR MOTEL RECEPTIONIST TAKE YOU HOME. A FORENSIC TOXICOLOGIST OR COCONUT CANDY MAKER CANNOT BE MADE A RESPONSIBLE HOTEL OR MOTEL RECEPTIONIST. - We recommend that a responsible person stays with you overnight to take care of you. - You cannot stay in a hotel alone after outpatient surgery. You will not be permitted to have yoursurgery, if you do not have someone to take care of you. If you already have an Advance Directive, please fax a copy to [phone] or email to for it to be [...] day. Dorothy Han APRN.CNP documented in this encounterAshtabula County Medical Center06-10-2024 History and physical note * [...] Eliana Whipple PA-C Coronary artery disease involving [place] coronary artery of [place] heart with angina pectoris (HCC) Assessment: moderate [...] large neck Non-male patient STOP-Bang Score: 2 [id number] Score: Age: >=75 Sex: female CHF history: No Hypertension history: Yes Stroke/TIA/thromboembolism history: No Vascular disease history: Yes Diabetes history: No [id number] Score: 5 ARISCAT Score: Age: >80 Preoperative [...] and consent discussed: yes. Patient / Responsible Libertarian agrees to proceed: yes Patient / Surrogate agrees to blood products: blood products not planned Discussed the possibility of lip / dental damage: yes Prepared for Surgery: optimally prepared for surgery, pending [see comment]. Email to anesthesia [facility] chart SEVERE aortic stenosis CONSULTS: The following [...] Essential (Primary) Hypertension Coronary Artery Disease Involving [place] Coronary Artery of [place] Heart With Angina Pectoris (Hcc) Insomnia Glaucoma [...] fevers. Neurological: No history of TIA's, stroke, MAINTENANCE PLANNER tumor, impaired sensorium, hemiplegia, paraplegia orquadraplegia. No [...] pain, CHF, congenital heart defect, DVT/PE, recent MO, murmur/valvular heart disease, PVD, open heart surgery and valve surgery. GI: No history of GI symptoms or problems. No history of esophageal varices, recent ascites, or ETOH greater than 2 drinks per day. : No history of dysuria, frequency or incontinence, stones or chronic kidney disease. No difficulty urinating, nocturia > 1 time per night or hematuria. 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 Instructions Given to Patient: Instructions located in the after visit summary. Patient given verbal and written preop instructions and voices comprehension and compliance. SIGNATURE: Dorothy Han APRN.CNP PATIENT NAME: Gogo Ware DATE: April 06, 2024 TIME: 1:08 PM PAGER/CONTACT #: [facility]06-10-[facility]24 History and physical note* Dorothy [...] Eliana Whipple PA-C Coronary artery disease involving [place] coronary artery of [place] heart with angina pectoris (HCC) Assessment: moderate [...] large neck Non-male patient STOP-Bang Score: 2 [id number] Score: Age: >=75 Sex: female CHF history: No Hypertension history: Yes Stroke/TIA/thromboembolism history: No Vascular disease history: Yes Diabetes history: No [id number] Score: 5 ARISCAT Score: Age: >80 Preoperative [...] and consent discussed: yes. Patient / Responsible Libertarian agrees to proceed: yes Patient / Surrogate agrees to blood products: blood products not planned Discussed the possibility of lip / dental damage: yes Prepared for Surgery: optimally prepared for surgery, pending [see comment]. Email to anesthesia toreview chart SEVERE aortic stenosis CONSULTS: The following [...] Essential (Primary) Hypertension Coronary Artery Disease Involving [place] Coronary Artery of [place] Heart With Angina Pectoris (Hcc) Insomnia Glaucoma [...] fevers. Neurological: No history of TIA's, stroke, MAINTENANCE PLANNER tumor, impaired sensorium, hemiplegia, paraplegia orquadraplegia. No [...] pain, CHF, congenital heart defect, DVT/PE, recent MO, murmur/valvular heart disease, PVD, open heart surgery and valve surgery. GI: No history of GI symptoms or problems. No history of esophageal varices, recent ascites, or ETOH greater than 2 drinks per day. : No history of dysuria, frequency or incontinence, stones or chronic kidney disease. No difficulty urinating, nocturia > 1 time per night or hematuria. 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 Instructions Given to Patient: Instructions located in the after visit summary. Patient given verbal and written preop instructions and voices comprehension and compliance. SIGNATURE: Dorothy Han APRN.CNP PATIENT NAME: Gogo Ware DATE: April 06, 2024 TIME: 1:08 PM PAGER/CONTACT #: documented in this encounterAshtabula County Medical Center04-18-2024 Telephone encounter Note * Telephone Encounter - Goldy Nolan - 02/13/2024 10:51 AM EDT Patient hasn't heard from anyone regarding scheduling her surgery. Please contact patient. [facility]04-18-2024 Miscellaneous Notes* Telephone Encounter - Goldy Nolan - 02/13/2024 10:51 AM EDT Patient hasn't heard from anyone regarding scheduling her surgery. Please contact patient. * Telephone Encounter - Elba Metz - 01/17/2024 10:43 AM EDT LVM = sent This is a courtesy call from [facility] to inform you that Dr Triana's neurosurgery spine physician will be contacting you within the next 7-10 business days to discuss scheduling surgery documented in this encounterAshtabula County Medical Center03-22-2024 Telephone encounter Note * Telephone Encounter - Elba Metz - 01/17/2024 10:43 AM EDT LVM = sent This is a courtesy call from [facility] to inform you that Dr Triana's neurosurgery spine physician will be contacting you within the next 7-10 business days to discuss scheduling surgery [facility]03-21-2024 History of Present illness Narrative* [...] components. Wali Triana MD documented in this encounterBartlett ClinicDischacoshocton [facility] summary Author Manny Murdock [facility] Note Date/Time May 14, 2025 12:4 4pm [facility] System Medical Records Department [address] [place] [address] Discharge Summary 05/14/25 1237 MR#: [id number] Acct: [id number] Name: GOGO WARE p #:[id number] : 1940 85 From: Manny Millard PCP: Dr. Eh Huddleston MD Status:ADM I N Location: [place] [address] Providers Date of Admission: 05/07/25 Date of [...] of Notification: Answering Service Comments:: [facility] Staff Notify [facility] of Tele-Neurology [...] speech and encephalopathy therefore transferred from [facility] to U. 1. Left distal femur fracture [...] the visualized lower lumbar spine are seen. [id number] degenerative changes of the visualized portions of the left knee. Reading Location: [id number] Femur X-Ray 05/07/25 07:24 IMPRESSION: A spiral [...] the visualized lower lumbar spine are seen. [id number] degenerative changes of the visualized portions of the left knee. Reading Location: [id number] Femur X-Ray 05/09/25 08:00 IMPRESSION: Anatomic alignment Reading Location: [facility]ARUELNL Brain CT 05/10/25 09:24 IMPRESSION: CHRONIC CHANGES. NO ACUTE FINDINGS. Reading Location: [facility] Head/Neck CTA 05/10/25 09:35 IMPRESSION: Atherosclerotic calcific plaques at the origin of the right and left internal carotid arteries as described. Red Alert: Nothing acute The critical information above was relayed directly by me by telephone to Sourav Casiano on 05/10/2025 at 9:55 am with readback verification. Reading Location: [facility]-IR-1 Brain MRI 05/11/25 12:05 IMPRESSION: 1. Numerous [...] (Auto) 67.5, Lymph % (Auto) 18.1 L, [place] % (Auto) 10.3 H, Eos % (Auto) [...] Recorder Preventi (Urgent) Timeframe: 1 Day Facility: [facility] - Location: Cardiovascular Services Ordered By: [...] in before D/C Order can be placed): Jail Facility 05/14/25 8294 <Electronically signed by Manny Murdock MD> Cosigner Signature (if applicable): CC: Dr. Manny Murdock MD; Dr. Eh Huddleston MD~ Signed [facility] Work Phone: Evaluation noteNo assessment information available [facility] Work Phone: Evaluation note* Diagnosis Onset Date Resolution Status Atherosclerotic heart diseas e of [place] coronary artery without angina pectoris chronic Essential hypertension chron ic Nonrheumatic aortic (valve) stenosis chronic Pure hypercholesterolemia [facility] Work Phone: Evaluation note* Diagnosis Onset Date Resolution Status Atherosclerotic heart diseas e of [place] coronary artery without angina pectoris chronic Essential hypertension chron ic Nonrheumatic aortic (valve) stenosis chronic Pure hypercholesterolemia [facility] Atherosclerotic heart diseas e of [place] coronary artery without angina pectoris chronic Essential hypertension chron ic Nonrheumatic aortic (valve) stenosis chronic Pure hypercholesterolemia [facility] Work Phone: Evaluation note* Diagnosis Total, mature senile cataract- Primary Total or mature senile cataract documented in this encounter [facility]* Diagnosis Total, mature senile cataract- Primary Total or mature senile cataract 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, 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, severe stage documented in this encounter [facility]* Diagnosis Pre-operative examination- Primary Preoperative examination, unspecified Severe aortic stenosis by prior echocardiogram Aortic valve disorders Coronary artery disease involving [place] coronary artery of [place] heart with angina pectoris (HCC) Insomnia, unspecified type Essential (primary) hypertension Unspecified essential hypertension Mixed hyperlipidemia Glaucoma, unspecified glaucoma type, unspecified laterality Total, mature senile cataract Total or mature senile cataract * Assessment & Plan Note - Dorothy Han APRN.CNP - 04/07/2024 9:20 AM EDT Associated Problem(s): Coronary artery disease involving [place] coronary artery of [place] heart with angina pectoris (HCC) Images from [...] controlled on rx documented in this encounter [facility]* Diagnosis Aortic valve stenosis, etiology of cardiac valve disease unspecified- Primary Preop examination Preoperative examination, unspecified Total, mature senile cataract Total or mature senile cataract documented in this encounter [facility]* Diagnosis Aortic valve stenosis, etiology of cardiac valve disease unspecified- Primary Total, mature senile cataract Total or mature senile cataract documented in this encounter [facility]* Diagnosis Aortic valve stenosis, etiology of cardiac valve disease unspecified- Primary documented in this encounter [facility]* Diagnosis Pseudophakia- Primary Lens 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 documented in this encounter [facility]* Diagnosis Non-rheumatic aortic stenosis- Primary Aortic valve disorders Coronary artery disease due to lipid rich plaque documented in this encounter [facility]* Diagnosis Non-rheumatic aortic stenosis- Primary Aortic valve disorders documented in this encounter [facility]* Diagnosis PCO (posterior capsular opacification), left- Primary After-cataract, unspecified Pseudophakia Lens replaced by other means Primary open angle glaucoma (POAG) of left eye, severe stage documented in this encounter [facility]* Diagnosis Severe aortic stenosis by prior echocardiogram- Primary Aortic valve disorders Encounter for preprocedural cardiovascular examination Pre-operative cardiovascular examination Aortic valve disorder Aortic valve disorders documented in this encounter [facility]* Diagnosis Pre-operative examination- Primary Preoperative examination, unspecified Severe aortic stenosis by prior echocardiogram Aortic valve disorders Coronary artery disease involving [place] coronary artery of [place] heart with angina pectoris (HCC) Insomnia, unspecified type Essential (primary) hypertension Unspecified essential hypertension Mixed hyperlipidemia Glaucoma, unspecified glaucoma type, unspecified laterality Nonrheumatic aortic valve stenosis- Primary Aortic valve disorders Coronary artery disease involving [place] coronary artery of [place] heart, unspecified whether angina present Encounter to establish care Other reasons for seeking consultation Pre-operative cardiovascular examination Chronic diastolic congestive heart failure (HCC) Chronic diastolic heart failure Nonrheumatic aortic valve stenosis Aortic valve disorders documented in this encounter [facility]* Diagnosis Pre-operative examination- Primary Preoperative examination, unspecified Severe aortic stenosis by prior echocardiogram Aortic valve disorders Coronary artery disease involving [place] coronary artery of [place] heart with angina pectoris (HCC) Insomnia, unspecified type Essential (primary) hypertension Unspecified essential hypertension Mixed hyperlipidemia Glaucoma, unspecified glaucoma type, unspecified laterality Severe aortic stenosis by prior echocardiogram Aortic valve disorders Encounter for preprocedural cardiovascular examination Pre-operative cardiovascular examination Aortic valve disorder Aortic valve disorders Nonrheumatic aortic valve stenosis Aortic valve disorders [facility] Diagnosis Pre-operative examination- Primary Preoperative examination, unspecified Severe aortic stenosis by prior echocardiogram Aortic valve disorders Coronary artery disease involving [place] coronary artery of [place] heart with angina pectoris (HCC) Insomnia, unspecified type Essential (primary) hypertension Unspecified essential hypertension Mixed hyperlipidemia Glaucoma, unspecified glaucoma type, unspecified laterality Severe aortic stenosis by prior echocardiogram Aortic valve disorders Encounter for preprocedural cardiovascular examination Pre-operative cardiovascular examination Aortic valve disorder Aortic valve disorders Nonrheumatic aortic valve stenosis Aortic valve disorders [facility] Diagnosis Pre-operative examination- Primary Preoperative examination, unspecified Severe aortic stenosis by prior echocardiogram Aortic valve disorders Coronary artery disease involving [place] coronary artery of [place] heart with angina pectoris (HCC) Insomnia, unspecified type Essential (primary) hypertension Unspecified essential hypertension Mixed hyperlipidemia Glaucoma, unspecified glaucoma type, unspecified laterality Aortic valve disorder- Primary Aortic valve disorders Severe aortic stenosis by prior echocardiogram Aortic valve disorders Encounter for preprocedural cardiovascular examination Pre-operative cardiovascular examination [facility] Diagnosis Pre-operative examination- Primary Preoperative examination, unspecified Severe aortic stenosis by prior echocardiogram Aortic valve disorders Coronary artery disease involving [place] coronary artery of [place] heart with angina pectoris (HCC) Insomnia, unspecified type Essential (primary) hypertension Unspecified essential hypertension Mixed hyperlipidemia Glaucoma, unspecified glaucoma type, unspecified laterality Aortic valve disorder- Primary Aortic valve disorders Severe aortic stenosis by prior echocardiogram Aortic valve disorders Encounter for preprocedural cardiovascular examination Pre-operative cardiovascular examination [facility] Diagnosis Pre-operative examination- Primary Preoperative examination, unspecified Severe aortic stenosis by prior echocardiogram Aortic valve disorders Coronary artery disease involving [place] coronary artery of [place] heart with angina pectoris (HCC) Insomnia, unspecified type Essential (primary) hypertension Unspecified essential hypertension Mixed hyperlipidemia Glaucoma, unspecified glaucoma type, unspecified laterality Nonrheumatic aortic valve stenosis- Primary Aortic valve disorders [facility] Diagnosis Pre-operative examination- Primary Preoperative examination, unspecified Severe aortic stenosis by prior echocardiogram Aortic valve disorders Coronary artery disease involving [place] coronary artery of [place] heart with angina pectoris (HCC) Insomnia, unspecified type Essential (primary) hypertension Unspecified essential hypertension Mixed hyperlipidemia Glaucoma, unspecified glaucoma type, unspecified laterality Nonrheumatic aortic valve stenosis- Primary Aortic valve disorders [facility] Diagnosis Pre-operative examination- Primary Preoperative examination, unspecified Severe aortic stenosis by prior echocardiogram Aortic valve disorders Coronary artery disease involving [place] coronary artery of [place] heart with angina pectoris (HCC) Insomnia, unspecified type Essential (primary) hypertension Unspecified essential hypertension Mixed hyperlipidemia Glaucoma, unspecified glaucoma type, unspecified laterality Severe aortic stenosis by prior echocardiogram Aortic valve disorders Encounter for preprocedural cardiovascular examination Pre-operative cardiovascular examination Aortic valve disorder Aortic valve disorders documented in this encounter [facility] note* Diagnosis Pre-operative examination- Primary Preoperative examination, unspecified Severe aortic stenosis by prior echocardiogram Aortic valve disorders Coronary artery disease involving [place] coronary artery of [place] heart with angina pectoris (HCC) Insomnia, unspecified type Essential (primary) hypertension Unspecified essential hypertension Mixed hyperlipidemia Glaucoma, unspecified glaucoma type, unspecified laterality Nonrheumatic aortic valve stenosis- Primary Aortic valve disorders [facility] Diagnosis Pre-operative examination- Primary Preoperative examination, unspecified Severe aortic stenosis by prior echocardiogram Aortic valve disorders Coronary artery disease involving [place] coronary artery of [place] heart with angina pectoris (HCC) Insomnia, unspecified type Essential (primary) hypertension Unspecified essential hypertension Mixed hyperlipidemia Glaucoma, unspecified glaucoma type, unspecified laterality Nonrheumatic aortic valve stenosis- Primary Aortic valve disorders Aortic valve disorder Aortic valve disorders Aortic valve stenosis, etiology of cardiac valve disease unspecified documented in this encounter [facility] note* Diagnosis Pre-operative examination- Primary Preoperative examination, unspecified Severe aortic stenosis by prior echocardiogram Aortic valve disorders Coronary artery disease involving [place] coronary artery of [place] heart with angina pectoris (HCC) Insomnia, unspecified type Essential (primary) hypertension Unspecified essential hypertension Mixed hyperlipidemia Glaucoma, unspecified glaucoma type, unspecified laterality Encounter for preoperative anesthesiology assessment for cardiac surgery- Primary Aortic valve stenosis, etiology of cardiac valve disease unspecified [facility] Diagnosis Pre-operative examination- Primary Preoperative examination, unspecified Severe aortic stenosis by prior echocardiogram Aortic valve disorders Coronary artery disease involving [place] coronary artery of [place] heart with angina pectoris (HCC) Insomnia, unspecified type Essential (primary) hypertension Unspecified essential hypertension Mixed hyperlipidemia Glaucoma, unspecified glaucoma type, unspecified laterality Nonrheumatic aortic valve stenosis- Primary Aortic valve disorders Aortic valve disorder Aortic valve disorders Aortic valve stenosis, etiology of cardiac valve disease unspecified [facility] Diagnosis Pre-operative examination- Primary Preoperative examination, unspecified Severe aortic stenosis by prior echocardiogram Aortic valve disorders Coronary artery disease involving [place] coronary artery of [place] heart with angina pectoris (HCC) Insomnia, unspecified type Essential (primary) hypertension Unspecified essential hypertension Mixed hyperlipidemia Glaucoma, unspecified glaucoma type, unspecified laterality Mixed hyperlipidemia Essential (primary) hypertension Unspecified essential hypertension Coronary artery disease involving [place] coronary artery of [place] heart with angina pectoris (HCC) Nonrheumatic aortic valve stenosis Aortic valve disorders Acute on chronic diastolic congestive heart failure (HCC) Acute on chronic diastolic heart failure Nonrheumatic aortic valve stenosis- Primary Aortic valve disorders S/P TAVR (transcatheter aortic valve replacement) Heart valve replaced by other means Aortic valve stenosis, etiology of cardiac valve disease unspecified documented in this encounter [facility] note* Diagnosis Pre-operative examination- Primary Preoperative examination, unspecified Severe aortic stenosis by prior echocardiogram Aortic valve disorders Coronary artery disease involving [place] coronary artery of [place] heart with angina pectoris (HCC) Insomnia, unspecified type Essential (primary) hypertension Unspecified essential hypertension Mixed hyperlipidemia Glaucoma, unspecified glaucoma type, unspecified laterality Nonrheumatic aortic valve stenosis Aortic valve disorders Aortic valve disorder Aortic valve disorders [facility] Diagnosis Pre-operative examination- Primary Preoperative examination, unspecified Severe aortic stenosis by prior echocardiogram Aortic valve disorders Coronary artery disease involving [place] coronary artery of [place] heart with angina pectoris (HCC) Insomnia, unspecified type Essential (primary) hypertension Unspecified essential hypertension Mixed hyperlipidemia Glaucoma, unspecified glaucoma type, unspecified laterality PAD (peripheral artery disease) ([facility])- Primary Peripheral vascular disease, unspecified [facility] Diagnosis Pre-operative examination- Primary Preoperative examination, unspecified Severe aortic stenosis by prior echocardiogram Aortic valve disorders Coronary artery disease involving [place] coronary artery of [place] heart with angina pectoris (HCC) Insomnia, unspecified [...] Unspecified essential hypertension Coronary artery disease involving [place] coronary artery of [place] heart with angina pectoris (HCC) [facility] Diagnosis Pre-operative examination- Primary Preoperative examination, unspecified Severe aortic stenosis by prior echocardiogram Aortic valve disorders Coronary artery disease involving [place] coronary artery of [place] heart with angina pectoris (HCC) Insomnia, unspecified type Essential (primary) hypertension Unspecified essential hypertension Mixed hyperlipidemia Glaucoma, unspecified glaucoma type, unspecified laterality S/P TAVR (transcatheter aortic valve replacement)- Primary Heart valve replaced by other means Severe aortic stenosis Aortic valve disorders Nonrheumatic aortic valve stenosis Aortic valve disorders Coronary artery disease involving [place] coronary artery of [place] heart with angina pectoris (HCC) Mixed hyperlipidemia Essential (primary) hypertension Unspecified essential hypertension [facility] Diagnosis Pre-operative examination- Primary Preoperative examination, unspecified Severe aortic stenosis by prior echocardiogram Aortic valve disorders Coronary artery disease involving [place] coronary artery of [place] heart with angina pectoris Insomnia, unspecified type Essential (primary) hypertension Unspecified essential hypertension Mixed hyperlipidemia Glaucoma, unspecified glaucoma type, unspecified laterality Mixed hyperlipidemia- Primary S/P TAVR (transcatheter aortic valve replacement) Heart valve replaced by other means Chronic diastolic congestive heart failure (HCC) Chronic diastolic heart failure Coronary artery disease involving [place] coronary artery of [place] heart with angina pectoris Essential (primary) hypertension Unspecified essential hypertension Acute deep vein thrombosis (DVT) of calf muscle vein of right lower extremity (HCC) [facility] Diagnosis Pre-operative examination- Primary Preoperative examination, unspecified Severe aortic stenosis by prior echocardiogram Aortic valve disorders Coronary artery disease involving [place] coronary artery of [place] heart with angina pectoris Insomnia, unspecified type Essential (primary) hypertension Unspecified essential hypertension Mixed hyperlipidemia Glaucoma, unspecified glaucoma type, unspecified laterality Mixed hyperlipidemia Essential (primary) hypertension Unspecified essential hypertension Coronary artery disease involving [place] coronary artery of [place] heart with angina pectoris Nonrheumatic aortic valve stenosis Aortic valve disorders S/P TAVR (transcatheter aortic valve replacement) Heart valve replaced by other means Severe aortic stenosis Aortic valve disorders [facility] Diagnosis Pre-operative examination- Primary Preoperative examination, unspecified Severe aortic stenosis by prior echocardiogram Aortic valve disorders Coronary artery disease involving [place] coronary artery of [place] heart with angina pectoris Insomnia, unspecified type Essential (primary) hypertension Unspecified essential hypertension Mixed hyperlipidemia Glaucoma, unspecified glaucoma type, unspecified laterality S/P TAVR (transcatheter aortic valve replacement)- Primary Heart valve replaced by other means Severe aortic stenosis Aortic valve disorders documented in this encounter [facility] Discharge instructionsAdditional Instructions Discharge 06/07/2025 to [facility], [facility] Work Phone: Reason for referral (narrative)* Outpatient Procedure (Routine) - Pending Review Specialty Diagnoses / Procedures Referred By Yessy bauer Referred To Contact [facility] Diagnoses Aortic valve stenosis, etiology of cardiac valve disease unspecified Preop examination Procedures ECHO ECHO TTHRC R-T 2D W/WOM-MODE COMPL SPEC&COLR D Therese Ruelas MD [address] [place] [address] [place] [id number] [place] [address] Referral ID Status Reason Start Date Expiration Date Visits Requested Visits Authorized [id number] Pending Review Auto-Genera fitz Referral Patient Cleared - Admin/Chair man/Directo r advise to proceed or did not respond 04/08/2024 04/08/2025 1 1 [facility] for referral (narrative)* Outpatient Procedure (Routine) - Pending Review Specialty Diagnoses / Procedures Referred By Yessy bauer Referred To Contact [facility] Diagnoses Non-rheumatic aortic stenosis Procedures ECHO ECHO TTHRC R-T 2D W/WOM-MODE COMPL SPEC&COLR D James Lindo MD [address] [place] [address] [facility] [address] [place] [address] Referral ID Status Reason Start Date Expiration Date Visits Requested Visits Authorized [id number] Pending Review Auto-Generat ed Referral 04/28/2024 04/28/2025 1 1 * Outpatient Procedure (Routine) - Pending Review Specialty Diagnoses / Procedures Referred By Contac t Referred To Contact [facility] Diagnoses Non-rheumatic aortic stenosis Procedures ECG COMPLETE ECG ROUTINE ECG W/LEAST 12 LDS W/I&R James Lindo MD [address] [place] [id number] [place] [id number] Referral ID Status Reason Start Date Expiration Date Visits Requested Visits Authorized [id number] Pending Review Auto-Generat ed Referral 04/28/2024 04/28/2025 1 1 * Transition of Care (Routine) - Ref Not Required Specialty Diagnoses / Procedures Referred By Contac t Referred To Contact [facility] Procedures CARDIOVASCULAR MEDICINE OP FOLLOW UP APPT ORDER James Lindo MD [address] [address] [place] [id number] Referral ID Status Reason Start Date Expiration Date Visits Requested Visits Authorized [id number] Ref Not Required PCP Requested Referral 10/29/2024 04/28/2025 1 1 [facility] for referral (narrative)* Outpatient Procedure (Routine) - New Request Specialty Diagnoses / Procedures Referred By Contac t Referred To Contact [facility] Diagnoses Severe aortic stenosis by prior echocardiogram Encounter for preprocedural cardiovascular examination Aortic valve disorder Procedures ECG COMPLETE ECG ROUTINE ECG W/LEAST 12 LDS W/I&R Kacy Jimenez APRN.MAINTENANCE PLANNER [address] [place] [address] [address] Referral ID Status Reason Start Date Expiration Date Visits Requested Visits Authorized [id number] New Request Auto-Generat ed Referral 06/09/2024 06/09/2025 1 1 * Outpatient Procedure (Routine) - New Request Specialty Diagnoses / Procedures Referred By Contac t Referred To Contact [facility] Diagnoses Severe aortic stenosis by prior echocardiogram Encounter for preprocedural cardiovascular examination Aortic valve disorder Procedures US CAROTID ARTERIES LARRY VAS LAB DUPLEX SCAN EXTRACRANIAL ART COMPL BI STUDY Kacy Jimenez APRN.MAINTENANCE PLANNER [address] [place] [address] [place] [id number] Referral ID Status Reason Start Date Expiration Date Visits Requested Visits Authorized [id number] New Request Auto-Generat ed Referral 06/09/2024 06/09/2025 1 1 * Diagnostic Procedure Only (Routine) - New Request Specialty Diagnoses / Procedures Referred By Yessy t Referred To Contact [facility] Diagnoses Severe aortic stenosis by prior echocardiogram Encounter for preprocedural cardiovascular examination Aortic valve disorder Procedures NM SPECT/CT CARDIAC AMYLOID RP LOCLZJ HENRY SPECT W/CT 1 AREA 1 DAY IMAGING Kacy Jimenez APRN.MAINTENANCE PLANNER [address] [place] [address] [facility] [address] [place] [address] Referral ID Status Reason Start Date Expiration Date Visits Requested Visits Authorized [id number] New Request Auto-Generat ed Referral 06/09/2024 07/09/2025 1 1 * MRI/CT (Routine) - New Request Specialty Diagnoses / Procedures Referred By Contac t Referred To Contact CT IM[facility] Diagnoses Severe aortic stenosis by prior echocardiogram Encounter for preprocedural cardiovascular examination Aortic valve disorder Procedures CTA CHEST/ABD/PEL (GATED) W IVCON CT ANGIOGRAPHY CHEST W/CONTRAST/NONCONTRAST CT ANGIO ABD&PLVIS CNTRST MTRL W/WO CNTRST IMGES Kacy Jimenez APRN.MAINTENANCE PLANNER [address] [place] [phone] [facility] [place] [address] Referral ID Status Reason Start Date Expiration Date Visits Requested Visits Authorized [id number] New Request Auto-Generat ed Referral 06/09/2024 07/09/2025 1 1 * Outpatient Procedure (Routine) - New Request Specialty Diagnoses / Procedures Referred By Contac t [facility] Diagnoses Severe aortic stenosis by prior echocardiogram Encounter for preprocedural cardiovascular examination Aortic valve disorder Procedures LUNG DIFFUSION CAPACITY (DLCO) DIFFUSING CAPACITY Kacy Jimenez APRN.MAINTENANCE PLANNER [address] [place] [address] [place] [address] Referral ID Status Reason Start Date Expiration Date Visits Requested Visits Authorized [id number] New Request Auto-Generat ed Referral 06/09/2024 07/09/2025 1 1 * Outpatient Procedure (Routine) - New Request Specialty Diagnoses / Procedures Referred By Contac t Referred To [facility] Diagnoses Severe aortic stenosis by prior echocardiogram Encounter for preprocedural cardiovascular examination Aortic valve disorder Procedures SPIROMETRY BASELINE ONLY SPMTRY W/VC EXPIRATORY PEDRO W/WO MXML VOL VNTJ Kacy Jimenez APRN.MAINTENANCE PLANNER [address] [place] [address] Respiratory [place] [phone] Referral ID Status Reason Start Date Expiration Date Visits Requested Visits Authorized [id number] New Request Auto-Generat ed Referral 06/09/2024 07/09/2025 1 1 [facility] for referral (narrative)* Diagnostic Procedure Only (Routine) - Closed Specialty Diagnoses / Procedures Referred By Contac t Referred To Contact [facility] Diagnoses Severe aortic stenosis by prior echocardiogram Encounter for preprocedural cardiovascular examination Aortic valve disorder Procedures NM SPECT/CT CARDIAC AMYLOID RP LOCLZJ HENRY SPECT W/CT 1 AREA 1 DAY IMAGING Held, Kacy Bañuelos APRN.CNS [address] [place] [address] Molecular [facility] [address] [place] [address] Referral ID Status Reason Start Date Expiration Date V isits Requested Visits Authorized [id number] Closed Auto-Generate d Referral 06/09/2024 07/09/2025 1 1 [facility] for referral (narrative)* Outpatient Procedure (Routine) - Authorized Specialty Diagnoses / Procedures Referred By Contac t Referred To Contact [facility] Diagnoses Nonrheumatic aortic valve stenosis Aortic valve disorder Procedures ECG COMPLETE ECG ROUTINE ECG W/LEAST 12 LDS W/I&R Luba Llanes APRN.DATA LIBRARIAN [address] [place] [address] [facility] [phone] [place] [address] Referral ID Status Reason Start Date Expiration Date Visits Requested Visits Authorized [id number] Authorized Auto-Generat ed Referral 10/07/2025 1 1 [facility] for referral (narrative)* Outpatient Procedure (Routine) - New Request Specialty Diagnoses / Procedures Referred By Contac t Referred To Contact [facility] Diagnoses Nonrheumatic aortic valve 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) Procedures ECG COMPLETE ECG ROUTINE ECG W/LEAST 12 LDS W/I&[place] [address] [place] [address] [facility] [address] [place] [address] Referral ID Status Reason Start Date Expiration Date Visits Requested Visits Authorized [id number] New Request Auto-Generat ed Referral 10/29/2024 10/29/2025 1 1 * Outpatient Procedure (Routine) - New Request Specialty Diagnoses / Procedures Referred By Contac t Referred To Contact [facility] Diagnoses Nonrheumatic aortic valve 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) Procedures ECG COMPLETE ECG ROUTINE ECG W/LEAST 12 LDS W/I&[place] [address] [place] [address] [facility] [address] [place] [address] Referral ID Status Reason Start Date Expiration Date Visits Requested Visits Authorized [id number] New Request Auto-Generat ed Referral 10/29/2024 10/29/2025 1 1 * Outpatient Procedure (Routine) - New Request Specialty Diagnoses / Procedures Referred By Contac t Referred To Contact [facility] Diagnoses Nonrheumatic aortic valve 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) Procedures ECHO ECHO TTHRC R-T 2D W/WOM-MODE COMPL SPEC&[place] [address] [place] [address] [facility] [address] [place] [address] Referral ID Status Reason Start Date Expiration Date Visits Requested Visits Authorized [id number] New Request Auto-Generat ed Referral 10/29/2024 10/29/2025 1 1 [facility] for referral (narrative)* Outpatient Procedure (Routine) - Authorized Specialty Diagnoses / Procedures Referred By Contac t Referred To Contact [facility] Diagnoses PAD (peripheral artery disease) (HCC) Procedures PVR ANK PRESS LARRY VAS LAB NON-INVAS PHYSIOLOGIC STD EXTREMITY ART 2 LEVEL Deng Koenig, AIR QUALITY SPECIALIST.DATA LIBRARIAN [address] [place] [address] [facility] [place] [address] [place] [address] Referral ID Status Reason Start Date Expiration Date Visits Requested Visits Authorized [id number] Authorized Auto-Generat ed Referral 10/30/2024 10/30/2025 1 1 * Outpatient Procedure (Routine) - Authorized Specialty Diagnoses / Procedures Referred By Yessy bauer Referred To Contact [facility] Diagnoses PAD (peripheral artery disease) (HCC) Procedures US LEG ARTERIAL PERIPH UNL VAS LAB DUP-SCAN LXTR ART/ARTL BPGS UNI/LMTD STUDY Deng Koenig APRN.DATA LIBRARIAN [address] [place] [address] [facility] [address] [place] [id number] Referral ID Status Reason Start Date Expiration Date Visits Requested Visits Authorized [id number] Authorized Auto-Generat ed Referral 11/30/2024 10/30/2025 1 1 [facility]No reason for referral information availableWFairfield Medical Center Work Phone: Reason for visit Narrative* Diagnostic Procedure Only (Routine) - Closed Specialty Diagnoses / Procedures Referred By Yessy bauer Referred To Contact MOLECULAR & FUNCTIONAL [facility]AGING Diagnoses Severe aortic stenosis by prior echocardiogram Encounter for preprocedural cardiovascular examination Aortic valve disorder Procedures NM SPECT/CT CARDIAC AMYLOID RP LOCLZJ HENRY SPECT W/CT 1 AREA 1 DAY IMAGING Held, Kacy Bañuelos APRN.MAINTENANCE PLANNER [address] [place] [address] [facility] [address] [id number] Referral ID Status Reason Start Date Expiration Date V isits Requested Visits Authorized [id number] Closed Auto-Generate d Referral 06/09/2024 07/09/2025 1 1 [facility] Summary Purpose Family History No Family History Records Found Relationship Condition Age at Onset Recorded Date/T pascale father Diabetes mellitus Unknown grandmother Malignant neoplasm of colon Unknown Advance Directives No Advanced Directives Records Found Advance Directive Response Recorded Date/ Time Living Will No July 04 11:30am Power of Swine Nutritionist No July 04, 2021 11:30am Advance Directive Response Recorded Date/ Time Living Will No July 04 10:30am Power of Swine Nutritionist No July 04, 2021 10:30am Advance Directive Response Recorded Date/ Time Advance Directives on File No January 14, 2025 10:16am Living Will Yes January 14, 2025 10:38am Do you have a Healthcare Power of Swine Nutritionist? Yes January 14, 2025 10:38am Advance Directive Response Recorded Date/ Time Advance Directives on File No January 14, 2025 10:16am Living Will Yes January 14, 2025 10:38am Do you have a Healthcare Pow er of Swine Nutritionist? Yes January 14, 2025 10:38am Do you have a Healthcare Pow er of Swine Nutritionist? Yes May 07, 2025 7:21am Name of Medical Power of Swine Nutritionist Nicole Borreroer neighbor May 07, 2025 7:21am Advance Directive Response Recorded Date/ Time Advance Directives on File No January 14, 2025 10:16am Living Will Yes January 14, 2025 10:38am Do you have a Healthcare Pow er of Swine Nutritionist? Yes January 14, 2025 10:38am Do you have a Healthcare Pow er of Swine Nutritionist? Yes May 07, 2025 3:30pm Name of Medical Power of Swine Nutritionist Nicole Borreroer neighbor May 07, 2025 7:21am Advance Directive Response Recorded Date/ Time Do you have a Healthcare Pow er of Swine Nutritionist? Yes May 07, 2025 3:30pm Name of Medical Power of Swine Nutritionist Nicole Borreroer neighbor May 07, 2025 7:21am Do you have a Healthcare Pow er of Swine Nutritionist? Yes May 18, 2025 3:50pm Name of Medical Power of Swine Nutritionist Nicole Zuluaga, friend May 18, 2025 3:50pm Chief Complaint and Reason for Visit Chief Complaint 1 Y FU AV STENOSIS Reason for Visit Atherosclerotic hear t disease of [place] coronary artery without angina pectoris Essential hypertension Nonrheumatic aortic (valve) stenosis Pure hypercholesterolemia Chief Complaint AV STENOSIS Chief Complaint 1 Y FU PREV PFM PT Atherosclerotic heart disease of [place] coronary a DISCUSS HEART CATH PER MMM Reason for Visit Atherosclerotic hear t disease of [place] coronary artery without angina pectoris Essential hypertension Nonrheumatic aortic (valve) stenosis Pure hypercholesterolemia Atherosclerotic heart disease of [place] coronary artery without angina pectoris Essential hypertension [...] ANEMIA POSITIVE STOOL June 23, 2025 10:57am Chief Complaint Admit Date S/P TAVR March 24, 2025 1:00p m [...] L FEMER June 03, 2025 7:5 4am LAB WORK June 08, 2025 4: 00am LAB WORK June 10, 2025 5: 00am Admission exam June 15, 2025 7: 02pm RESIDENTIAL LAB WORK June 16, 2025 8:40am LABWORK June 17, 2025 5: 00am ANEMIA POSITIVE STOOL June 23, 2025 10:57am Reason for Visit Admit Date Femoral distal [...] Femoral distal fracture May 14, 2025 2:44pm History of Clostridioides difficile coli tis June 23, 2025 10:57am Chief Complaint Admit Date S/P TAVR March 24, 2025 1:00p m [...] L FEMER June 03, 2025 7:5 4am LAB WORK June 08, 2025 4: 00am LAB WORK June 10, 2025 5: 00am Admission exam June 15, 2025 7: 02pm RESIDENTIAL LAB WORK June 16, 2025 8:40am New Concern June 16, 2025 6: 35pm LABWORK June 17, 2025 5: 00am ANEMIA POSITIVE STOOL June 23, 2025 10:57am Chief Complaint Admit Date S/P TAVR March 24, 2025 1:00p m [...] L FEMER June 03, 2025 7:5 4am LAB WORK June 08, 2025 4: 00am LAB WORK June 10, 2025 5: 00am Admission exam June 15, 2025 7: 02pm RESIDENTIAL LAB WORK June 16, 2025 8:40am New Concern June 16, 2025 6: 35pm LABWORK June 17, 2025 5: 00am Admission Exam June 22, 2025 10 :28am ANEMIA POSITIVE STOOL June 23, 2025 10:57am Reason for Referral Specialty Diagnoses / Procedures Referred By Yessy t Referred To Contact Cardiology Diagnoses Aortic valve stenosis, etiology of cardiac valve disease unspecified Procedures CONSULT TO CARDIOLOGY OFFICE/OUTPATIENT [facility] 60 MINUTES Berta Rich PA-C [address] [address] [facility] [place] [address] Referral ID Status Reason Start Date Expiration Date Visits Requested Visits Authorized [id number] Authorized PCP Requested Referral 04/23/2024 04/16/2025 1 1 Specialty Diagnoses / Procedures Referred By Contac t Referred To Contact Diagnoses Aortic valve stenosis, etiology of cardiac valve disease unspecified Procedures CONSULT TO INTERVENTIONAL CARDIOLOGY OFFICE/OUTPATIENT [facility] 60 MINUTES Azul Madrigal, AIR QUALITY SPECIALIST.DATA LIBRARIAN [address] [place] [address] Referral ID Status Reason Start Date Expiration Date Visits Requested Visits Authorized [id number] Authorized PCP Requested Referral 04/21/2024 04/21/2025 1 1 Specialty Diagnoses / Procedures Referred By Contac t Referred To Contact [facility] Procedures CARDIOVASCULAR MEDICINE [place] [address] [place] [address] [facility] [address] [address] Referral ID Status Reason Start Date Expiration Date Visits Requested Visits Authorized [id number] Ref Not Required PCP Requested Referral 08/31/2024 08/31/2025 1 1 Specialty Diagnoses / Procedures Referred By Contac t Referred To Contact CT IMAGING Diagnoses Severe aortic stenosis by prior echocardiogram Encounter for preprocedural cardiovascular examination Aortic valve disorder Procedures CTA CHEST/ABD/PEL (GATED) W IVCON CT ANGIOGRAPHY CHEST W/CONTRAST/NONCONTRAST CT ANGIO ABD&PLVIS CNTRST MTRL W/WO CNTRST Kacy Charles, AIR QUALITY 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 [address] [place] [address] Ct Imaging [id number] Referral ID Status Reason Start Date Expiration Date V isits Requested Visits Authorized [id number] Closed Auto-Generate d Referral 08/12/2024 10/11/2024 1 1 Specialty Diagnoses / Procedures Referred By Contac t Referred To Contact [facility] Procedures CARDIOVASCULAR MEDICINE OP FOLLOW UP APPT ORDER Luba Llanes, AIR QUALITY SPECIALIST.DATA LIBRARIAN [address] [place] [address] [facility] [address] [address] Referral ID Status Reason Start Date Expiration Date Visits Requested Visits Authorized [id number] Ref Not Required PCP Requested Referral 4 09/09/2025 1 1 Specialty Diagnoses / Procedures Referred By Contac t Referred To Contact [facility] Procedures CARDIOVASCULAR MEDICINE OP FOLLOW UP APPT ORDER Kacy Jimenez APRN.MAINTENANCE PLANNER [address] [place] [address] [facility] [place] [address] [place] [id number] Referral ID Status Reason Start Date Expiration Date Visits Requested Visits Authorized [id number] Authorized PCP Requested Referral 10/29/2024 10/29/2025 1 1 Specialty Diagnoses / Procedures Referred By Contac t Referred To Contact [facility] [place] Procedures CARDIOVASCULAR MEDICINE OP FOLLOW UP APPT ORDER Deng Koenig APRN.DATA LIBRARIAN [address] [facility] [address] [place] [address] [facility] [place] [address] [place] [phone] Referral ID Status Reason Start Date Expiration Date Visits Requested Visits Authorized [id number] Authorized PCP Requested Referral 11/10/2024 11/10/2025 1 1 Additional Source Comments INFORMATION SOURCE (unrecogn ized section and content) DATE CREATED AUTHOR 04/18/2018 [facility] DATE CREATED AUTHOR AUTHOR'S ORGANIZ ATION 04/18/2018 [facility] DATE CREATED AUTHOR AUTHOR'S ORGANIZ ATION 03/12/2025 [facility] DATE CREATED AUTHOR AUTHOR'S ORGANIZ ATION 08/20/2025 [facility] Goals (unrecognized section and content) Goals [...] Primary Care Provider, Referring Provider Active Eliana Whipple PA, PA Attending Provider Active Team Status: Active Member Role Status Dates Dr. Eh Huddleston MD Primary Care Provider Active Dr. Richy Coronado MD Attending Provider, Referring Pro vider Active Team Status: Inactive Member Role Status Dates Dr. Eh Huddleston MD Primary Care Provider Active Eliana Whipple PA, PA Attending Provider, Referr ing Provider Active Business Employment Specialist Relationship Specialty Start Date End Date Eh Huddleston Chi PCP - General Gerontology 12/27/17 Business Employment Specialist Relationship Specialty Start Date End Date Eh Huddleston Chi PCP - General Gerontology 12/27/17 Business Employment Specialist Relationship Specialty Start Date End Date Eh Huddleston Chi PCP - General Gerontology 12/27/17 03/25/24 Business Employment Specialist Relationship Specialty Start Date End Date Eh Huddleston Chi [address] [place] [address] PCP - General Gerontology 08/31/24 Business Employment Specialist Relationship Specialty Start Date End Date Eh Huddleston Chi [address] [place] [address] PCP - General Gerontology 08/31/24 Business Employment Specialist Relationship Specialty Start Date End Date Eh Huddleston Chi [address] [place] [address] PCP - General Gerontology 08/31/24 Business Employment Specialist Relationship Specialty Start Date End Date hE Huddleston Chi [address] [place], [place] [address] PCP - General Gerontology 08/31/24 Business Employment Specialist Relationship Specialty Start Date End Date Eh Huddleston Chi [address] [place], [place] [id number] PCP - General Gerontology 08/31/24 Business Employment Specialist Relationship Specialty Start Date End Date Eh Huddleston Chi [address] [place], [place] [id number] PCP - General Gerontology 08/31/24 Business Employment Specialist Relationship Specialty Start Date End Date Eh Huddleston Chi [address] [place] [address] PCP - General Gerontology 08/31/24 Business Employment Specialist Relationship Specialty Start Date End Date Eh Huddleston Chi [address] [place], [place] [address] PCP - General Gerontology 08/31/24 Business Employment Specialist Relationship Specialty Start Date End Date Eh Huddleston Chi [address] [place] [address] PCP - General Gerontology 08/31/24 Business Employment Specialist Relationship Specialty Start Date End Date Eh Huddleston Chi [address] [place], [place] [address] PCP - General Gerontology 08/31/24 Business Employment Specialist Relationship Specialty Start Date End Date Eh Huddleston Chi [address] [place], [place] [address] PCP - General Gerontology 08/31/24 Business Employment Specialist Relationship Specialty Start Date End Date Eh Huddleston Chi [address] [place] [address] PCP - General Gerontology 08/31/24 Business Employment Specialist Relationship Specialty Start Date End Date Eh Huddleston Chi [address] [place] [address] PCP - General Gerontology 08/31/24 Business Employment Specialist Relationship Specialty Start Date End Date Eh Huddleston Chi [address] [place] [address] PCP - General Gerontology 08/31/24 Business Employment Specialist Relationship Specialty Start Date End Date Eh Huddleston Chi [address] [place] [address] PCP - General Gerontology 08/31/24 Business Employment Specialist Relationship Specialty Start Date End Date Eh Huddleston Chi [address] [place] [address] PCP - General Gerontology 08/31/24 Business Employment Specialist Relationship Specialty Start Date End Date Eh Huddleston Chi [address] [place] [address] PCP - General Gerontology 08/31/24 Team Status: [...] 2025 RUSSELL DONALD Attending Provider Active Start: [facility] 2024 End: January 14, 2025 RUSSELL DONALD Referring Provider Active Start: [facility] 2024 End: January 14, 2025 Team Status: Active Member Role Status Dates Dr. Eh Huddleston MD Primary Care Provider Active Start: January 20, 2025 RUSSELL DONALD Attending Provider Active Start: [facility] 2024 RUSSELL DONALD Referring Provider Active Start: [facility] 2024 Team Status: Inactive Member Role Status Dates Dr. Eh Huddleston MD Primary Care Provider Active Start: January 25, 2025 End: January 25, 2025 RUSSELL DONALD Attending Provider Active Start: [facility] 2024 End: January 25, 2025 RUSSELL DONALD Referring Provider Active Start: [facility] 2024 End: January 25, 2025 Business Employment Specialist Relationship Specialty Start Date End Date Eh Huddleston Chi [address] [place] [address] PCP - General Gerontology 08/31/24 Team Status: Inactive Member Role Status Dates Dr. Eh Huddleston MD Primary Care Provider Active Start: February 24, 2025 End: February 24, 2025 RUSSELL DONALD Attending Provider Active Start: [facility] 2024 End: February 24, 2025 RUSSELL DONALD Referring Provider Active Start: [facility] 2024 End: February 24, 2025 Team Status: Inactive Member Role Status Dates Dr. Eh Huddleston MD Primary Care Provider Active Start: March 24, 2025 End: March 27, 2025 RUSSELL DONALD Attending Provider Active Start: [place] 20[place] End: March 27, 2025 RUSSELL DONALD Referring Provider Active Start: [facility] 2024 End: March 27, 2025 Team Status: [...] 2025 RUSSELL DONALD Attending Provider Active Start: 2024 RUSSELL DONALD Referring Provider Active Start: [facility] 2024 Team Status: Active Member Role/Relationship Status Dates Dr. Eh Huddleston MD Primary Care Provider Active Team Status: Inactive Member Role/Relationship Status Dates Dr. Eh Huddleston MD Primary Care Provider Active Start: January 14, 2025 End: January 14, 2025 RUSSELL DONALD Attending Provider Active Start: [facility] 2024 End: January 14, 2025 RUSSELL DONALD Referring Provider Active Start: [facility] 2024 End: January 14, 2025 Team Status: Inactive Member Role/Relationship Status Dates Dr. Eh Huddleston MD Primary Care Provider Active Start: January 25, 2025 End: January 25, 2025 RUSSELL DONALD Attending Provider Active Start: [facility] 2024 End: January 25, 2025 RUSSELL DONALD Referring Provider Active Start: [facility] 2024 End: January 25, 2025 Team Status: Inactive Member Role/Relationship Status Dates Dr. Eh Huddleston MD Primary Care Provider Active Start: February 24, 2025 End: February 24, 2025 RUSSELL DONALD Attending Provider Active Start: [facility] 2024 End: February 24, 2025 RUSSELL DONALD Referring Provider Active Start: [facility] 2024 End: February 24, 2025 Team Status: Inactive Member Role/Relationship Status Dates Dr. Eh Huddleston MD Primary Care Provider Active Start: March 24, 2025 End: March 27, 2025 RUSSELL DONALD Attending Provider Active Start: [facility] 2024 End: March 27, 2025 RUSSELL DONALD Referring Provider Active Start: [facility] 2024 End: March 27, 2025 Team Status: [...] 2025 RUSSELL DONALD Attending Provider Active Start: 2024 RUSSELL DONALD Referring Provider Active Start: 2024 Team Status: Active Member Role/Relationship Status [...] Nathan Heredia MD Other Provider Active Start: ly 2024 End: May 14, 2025 Dr. [...] May 07, 2025 Dr. Santhosh Livingston , DO Other Provider Active Start: May 07, [...] May 10, 2025 Dr. Santhosh Livingston , Other Provider Active Start: May 10, 2025 [...] rt: May 12, 2025 Dr. Santhosh Livingston , Other Provider Active Start: May 12, 2025 Nathan Heredia MD Other Provider Active Start: 2024 Dr. Des Link MD Other Provider Active Start: May 12, 2025 Georgina Sosa MD Other Provider Active Start : May 12, 2025 Dr. Sondra Lira , DO Other Provider Active St art: May [...] tart: May 13, 2025 Dr. Sourav Casiano DO Other Provider Active S tart: May 13, [...] : May 13, 2025 Dr. Sondra Lira , Other Provider Active St art: May 13, [...] Active St art: May 13, 2025 Dr. Yolnada Arriola MD Other Provider Active Start: May [...] Nathan Heredia MD Other Provider Active Start: [facility] 2024 Dr. Des Link MD Other Provider [...] RUSSELL DONALD Attending Provider Active Start: Ap 2024 End: February 24, 2025 RUSSELL DONALD Referring Provider Active Start: [facility] 2024 End: February 24, 2025 Team Status: [...] RUSSELL DONALD Attending Provider Active Start: Padmini ly 2024 End: May 27, 2025 RUSSELL DONALD Referring Provider Active Start: Padmini ly 2024 End: May 27, 2025 Team [...] May 14, 2025 Dr. Santhosh Livingston , DO Other Provider Active Start: May 07, [...] May 07, 2025 Dr. Santhosh Livingston , DO Other Provider Active Start: May 07, [...] May 11, 2025 Dr. Sourav Casiano , Attending Provider Active Start: May 11, 2025 Dr. Sourav Casiano , Other Provider Active S tart: May 11, 2025 Dr. Santhosh Livingston , Other Provider Active Start: May 11, 2025 [...] rt: May 12, 2025 Dr. Santhosh Livingston , Other Provider Active Start: May 12, 2025 [...] Status: Active Member Role/Relationship Status Dates Dr. hE Huddleston MD Primary Care Provider Active Start: [...] DO Emergency Provider Activ e Start: May 14, [...] Start : May 14, 2025 Dr. Armin Strete MD Other Provider Active Sta rt: May [...] Attending Provider Active Start: June 08, 2025 Business Employment Specialist Relationship Specialty Start Date End Date Flaquito Eh Mcke[address] [place] [address] PCP - General Gerontology 08/31/24 Team Status: [...] June 23, 2025 End: June 23, 2025 Team Status: Inactive Member Role/Relationship Status [...] RUSSELL DONALD Attending Provider Active Start: [place] 2024 End: April 26, 2025 RUSSELL DONALD Referring Provider Active Start: [place] 2024 End: April 26, 2025 Team Status: Inactive Member Role/Relationship Status Dates Dr. Eh Huddleston MD Primary Care Provider Active Start: April 28, 2025 End: May 27, 2025 RUSSELL DONALD Attending Provider Active Start: Ju ly 2024 End: May 27, 2025 RUSSELL [...] Nathan Heredia MD Other Provider Active Start: Ju ly 2024 End: May 14, 2025 Dr. Des Link MD Other Provider Active Start: May 07, 2025 End: May 14, 2025 Georgina Sosa MD Other Provider Active Start : May 07, 2025 End: May 14, 2025 Dr. Sondra Lira , DO Other Provider Active St art: May [...] May 07, 2025 Dr. Santhosh Livingston , DO Other Provider Active Start: May 07, [...] May 08, 2025 Dr. Sourav Casiano , Attending Provider Active Start: May 08, 2025 [...] May 10, 2025 Dr. Santhosh Livingston , Other Provider Active Start: May 10, 2025 [...] May 11, 2025 Dr. Santhosh Livingston , Other Provider Active Start: May 11, 2025 [...] rt: May 12, 2025 Dr. Santhosh Livingston , Other Provider Active Start: May 12, 2025 [...] Active Sta rt: May 12, 2025 Dr. aMria Guadalupe Rocha MD Other Provider Active Start: May 12, 2025 Dr. Domenic Blanco MD Other Provider Active St art: May 12, 2025 Dr. Mp Petersen MD Other Provider Active Star t: May 12, 2025 Dr. Yordan Alfaro MD Other Provider Active St art: May 12, 2025 Dr. Yoalnda Arriola MD Other Provider Active Start: May [...] tart: May 13, 2025 Dr. Sourav Casiano DO Other Provider Active S tart: May 13, [...] : May 13, 2025 Dr. Sondra Lira , Other Provider Active St art: May 13, 2025 Dr. Elva Maxwell MD Other Provider Active Start: May 13, 2025 Dr. Sneg Daniel MD Other Provider Active Sta rt: [...] DO Emergency Provider Activ e Start: May 14, [...] 2025 End: June 07, 2025 Team Status: Inactive Member Role/Relationship [...] Referring Provider Active Start: June 01, 2025 Dr. [...] Active Start: June 03, 2025 Team Status: Active Member Role/Relationship Status Dates Dr. Eh Huddleston MD Primary Care Provider Active Start: June 08, 2025 Dr. Vimal SALMERON MD Attending Provider Active Start: June 08, 2025 Dr. Vimal SALMERON MD Referring Provider Active Start: June 08, 2025 Team Status: Active Member Role/Relationship Status Dates Dr. Eh Huddleston MD Primary Care Provider Active Start: June 10, 2025 Dr. Vimal SALMERON MD Attending Provider Active Start: June 10, 2025 Team Status: Inactive Member Role/Relationship Status Dates Dr. Eh Huddleston MD Primary Care Provider Active Start: June 15, 2025 End: June 15, 2025 Lita Rios NP, PRIMARY COUNSELOR-C Attending Provider Active Start: June 15, 2025 End: June 15, 2025 Team Status: Active Member Role/Relationship Status Dates Dr. Eh Huddleston MD Primary Care Provider Active Start: June 24, 2025 Nereyda SALMERON MD Attending Provider Active Start: June 24, 2025 Team Status: Active Member Role/Relationship Status Dates Dr. Eh Huddleston MD Primary Care Provider Active Start: July 01, 2025 Nereyda SALMERON MD Attending Provider Active Start: July 01, 2025 Team Status: Inactive Member Role/Relationship Status Dates Dr. Eh Huddleston MD Primary Care Provider Active Start: June 16, 2025 End: June 16, 2025 Lita Rios PRIMARY COUNSELOR, PRIMARY COUNSELOR-C Attending Provider Active Start: June 16, 2025 End: June 16, 2025 Team Status: Active Member [...] June 23, 2025 End: June 23, 2025 Team Status: Active Member Role/Relationship Status Dates Dr. Eh Huddleston MD Primary Care Provider Active Start: June 24, 2025 Nereyda SALMERON MD Attending Provider Active Start: June 24, 2025 Team Status: Active Member Role/Relationship Status Dates Dr. Eh Huddleston MD Primary Care Provider Active Start: July 01, 2025 Nereyda SALMERON MD Attending Provider Active Start: July 01, 2025 Team Status: Inactive Member Role/Relationship Status Dates Dr. Eh Huddleston MD Primary Care Provider Active Start: June 22, 2025 End: June 22, 2025 Dr. Nereyda Manzo MD Attending Provider Active Start: June 22, 2025 End: June 22, 2025 Team Status: Inactive Member Role/Relationship Status Dates Dr. Eh Huddleston MD Primary Care Provider Active Start: June 23, 2025 End: June 23, 2025 Dr. Eh Huddleston MD Referring Provider Active Start: June 23, 2025 End: June 23, 2025 VICTOR M Hanna Attending Provider Active Start: June 23, 2025 End: June 23, 2025 Team Status: Active Member Role/Relationship Status Dates Dr. Eh Huddleston MD Primary Care Provider Active Start: June 24, 2025 Nereyda SALMERON MD Attending Provider Active Start: June 24, 2025 Team Status: Active Member Role/Relationship Status Dates Dr. Eh Huddleston MD Primary Care Provider Active Start: July 01, 2025 Nereyda SALMERON MD Attending Provider Active Start: July 01, 2025 Source Comments (unrecognize d section and content) In the event this informatio n is protected by the Federal Confidentiality of Alcohol and Drug Abuse Patient Records regulations: The Federal rules restrict any use of the information to criminally investigate or prosecute any alcohol or drug abuse patient.[facility] CenterIn the event this information is protected by the Federal Confidentiality of Alcohol and Drug Abuse Patient Records regulations: The Federal rules restrict any use of the information to criminally investigate or prosecute any alcohol or drug abuse patient.[facility] CenterIn the event this information is protected by the Federal Confidentiality of Alcohol and Drug Abuse Patient Records regulations: The Federal rules restrict any use of the information to criminally investigate or prosecute any alcohol or drug abuse patient.[facility]In the event this information is protected by the Federal Confidentiality of Alcohol and Drug Abuse Patient Records regulations: The Federal rules restrict any use of the information to criminally investigate or prosecute any alcohol or drug abuse patient.[facility] CenterIn the event this information is protected by the Federal Confidentiality of Alcohol and Drug Abuse Patient Records regulations: The Federal rules restrict any use of the information to criminally investigate or prosecute any alcohol or drug abuse patient.[facility] CenterIn the event this information is protected by the Federal Confidentiality of Alcohol and Drug Abuse Patient Records regulations: The Federal rules restrict any use of the information to criminally investigate or prosecute any alcohol or drug abuse patient.[facility] CenterIn the event this information is protected by the Federal Confidentiality of Alcohol and Drug Abuse Patient Records regulations: The Federal rules restrict any use of the information to criminally investigate or prosecute any alcohol or drug abuse patient.[facility] CenterIn the event this information is protected by the Federal Confidentiality of Alcohol and Drug Abuse Patient Records regulations: The Federal rules restrict any use of the information to criminally investigate or prosecute any alcohol or drug abuse patient.[facility] CenterIn the event this information is protected by the Federal Confidentiality of Alcohol and Drug Abuse Patient Records regulations: The Federal rules restrict any use of the information to criminally investigate or prosecute any alcohol or drug abuse patient.[facility] CenterIn the event this information is protected by the Federal Confidentiality of Alcohol and Drug Abuse Patient Records regulations: The Federal rules restrict any use of the information to criminally investigate or prosecute any alcohol or drug abuse patient.[facility] CenterIn the event this information is protected by the Federal Confidentiality of Alcohol and Drug Abuse Patient Records regulations: The Federal rules restrict any use of the information to criminally investigate or prosecute any alcohol or drug abuse patient.[facility] CenterIn the event this information is protected by the Federal Confidentiality of Alcohol and Drug Abuse Patient Records regulations: The Federal rules restrict any use of the information to criminally investigate or prosecute any alcohol or drug abuse patient.[facility] CenterIn the event this information is protected by the Federal Confidentiality of Alcohol and Drug Abuse Patient Records regulations: The Federal rules restrict any use of the information to criminally investigate or prosecute any alcohol or drug abuse patient.[facility] CenterIn the event this information is protected by the Federal Confidentiality of Alcohol and Drug Abuse Patient Records regulations: The Federal rules restrict any use of the information to criminally investigate or prosecute any alcohol or drug abuse patient.[facility] CenterIn the event this information is protected by the Federal Confidentiality of Alcohol and Drug Abuse Patient Records regulations: The Federal rules restrict any use of the information to criminally investigate or prosecute any alcohol or drug abuse patient.[facility] CenterIn the event this information is protected by the Federal Confidentiality of Alcohol and Drug Abuse Patient Records regulations: The Federal rules restrict any use of the information to criminally investigate or prosecute any alcohol or drug abuse patient.[facility] CenterIn the event this information is protected by the Federal Confidentiality of Alcohol and Drug Abuse Patient Records regulations: The Federal rules restrict any use of the information to criminally investigate or prosecute any alcohol or drug abuse patient.[facility] CenterIn the event this information is protected by the Federal Confidentiality of Alcohol and Drug Abuse Patient Records regulations: The Federal rules restrict any use of the information to criminally investigate or prosecute any alcohol or drug abuse patient.[facility] CenterIn the event this information is protected by the Federal Confidentiality of Alcohol and Drug Abuse Patient Records regulations: The Federal rules restrict any use of the information to criminally investigate or prosecute any alcohol or drug abuse patient.[facility] CenterIn the event this information is protected by the Federal Confidentiality of Alcohol and Drug Abuse Patient Records regulations: The Federal rules restrict any use of the information to criminally investigate or prosecute any alcohol or drug abuse patient.[facility] CenterIn the event this information is protected by the Federal Confidentiality of Alcohol and Drug Abuse Patient Records regulations: The Federal rules restrict any use of the information to criminally investigate or prosecute any alcohol or drug abuse patient.[facility] CenterIn the event this information is protected by the Federal Confidentiality of Alcohol and Drug Abuse Patient Records regulations: The Federal rules restrict any use of the information to criminally investigate or prosecute any alcohol or drug abuse patient.[facility] CenterIn the event this information is protected by the Federal Confidentiality of Alcohol and Drug Abuse Patient Records regulations: The Federal rules restrict any use of the information to criminally investigate or prosecute any alcohol or drug abuse patient.[facility] CenterIn the event this information is protected by the Federal Confidentiality of Alcohol and Drug Abuse Patient Records regulations: The Federal rules restrict any use of the information to criminally investigate or prosecute any alcohol or drug abuse patient.[facility] CenterIn the event this information is protected by the Federal Confidentiality of Alcohol and Drug Abuse Patient Records regulations: The Federal rules restrict any use of the information to criminally investigate or prosecute any alcohol or drug abuse patient.[facility] CenterIn the event this information is protected by the Federal Confidentiality of Alcohol and Drug Abuse Patient Records regulations: The Federal rules restrict any use of the information to criminally investigate or prosecute any alcohol or drug abuse patient.[facility] CenterIn the event this information is protected by the Federal Confidentiality of Alcohol and Drug Abuse Patient Records regulations: The Federal rules restrict any use of the information to criminally investigate or prosecute any alcohol or drug abuse patient.[facility] CenterIn the event this information is protected by the Federal Confidentiality of Alcohol and Drug Abuse Patient Records regulations: The Federal rules restrict any use of the information to criminally investigate or prosecute any alcohol or drug abuse patient.[facility] CenterIn the event this information is protected by the Federal Confidentiality of Alcohol and Drug Abuse Patient Records regulations: The Federal rules restrict any use of the information to criminally investigate or prosecute any alcohol or drug abuse patient.[facility] CenterIn the event this information is protected by the Federal Confidentiality of Alcohol and Drug Abuse Patient Records regulations: The Federal rules restrict any use of the information to criminally investigate or prosecute any alcohol or drug abuse patient.[facility] CenterIn the event this information is protected by the Federal Confidentiality of Alcohol and Drug Abuse Patient Records regulations: The Federal rules restrict any use of the information to criminally investigate or prosecute any alcohol or drug abuse patient.[facility] CenterIn the event this information is protected by the Federal Confidentiality of Alcohol and Drug Abuse Patient Records regulations: The Federal rules restrict any use of the information to criminally investigate or prosecute any alcohol or drug abuse patient.[facility] CenterIn the event this information is protected by the Federal Confidentiality of Alcohol and Drug Abuse Patient Records regulations: The Federal rules restrict any use of the information to criminally investigate or prosecute any alcohol or drug abuse patient.[facility] CenterIn the event this information is protected by the Federal Confidentiality of Alcohol and Drug Abuse Patient Records regulations: The Federal rules restrict any use of the information to criminally investigate or prosecute any alcohol or drug abuse patient.[facility] CenterIn the event this information is protected by the Federal Confidentiality of Alcohol and Drug Abuse Patient Records regulations: The Federal rules restrict any use of the information to criminally investigate or prosecute any alcohol or drug abuse patient.[facility] CenterIn the event this information is protected by the Federal Confidentiality of Alcohol and Drug Abuse Patient Records regulations: The Federal rules restrict any use of the information to criminally investigate or prosecute any alcohol or drug abuse patient.[facility] CenterIn the event this information is protected by the Federal Confidentiality of Alcohol and Drug Abuse Patient Records regulations: The Federal rules restrict any use of the information to criminally investigate or prosecute any alcohol or drug abuse patient.[facility] CenterIn the event this information is protected by the Federal Confidentiality of Alcohol and Drug Abuse Patient Records regulations: The Federal rules restrict any use of the information to criminally investigate or prosecute any alcohol or drug abuse patient.[facility] CenterIn the event this information is protected by the Federal Confidentiality of Alcohol and Drug Abuse Patient Records regulations: The Federal rules restrict any use of the information to criminally investigate or prosecute any alcohol or drug abuse patient.[facility] CenterIn the event this information is protected by the Federal Confidentiality of Alcohol and Drug Abuse Patient Records regulations: The Federal rules restrict any use of the information to criminally investigate or prosecute any alcohol or drug abuse patient.[facility] CenterIn the event this information is protected by the Federal Confidentiality of Alcohol and Drug Abuse Patient Records regulations: The Federal rules restrict any use of the information to criminally investigate or prosecute any alcohol or drug abuse patient.[facility] CenterIn the event this information is protected by the Federal Confidentiality of Alcohol and Drug Abuse Patient Records regulations: The Federal rules restrict any use of the information to criminally investigate or prosecute any alcohol or drug abuse patient.[facility] CenterIn the event this information is protected by the Federal Confidentiality of Alcohol and Drug Abuse Patient Records regulations: The Federal rules restrict any use of the information to criminally investigate or prosecute any alcohol or drug abuse patient.[facility] CenterIn the event this information is protected by the Federal Confidentiality of Alcohol and Drug Abuse Patient Records regulations: The Federal rules restrict any use of the information to criminally investigate or prosecute any alcohol or drug abuse patient.[facility] CenterIn the event this information is protected by the Federal Confidentiality of Alcohol and Drug Abuse Patient Records regulations: The Federal rules restrict any use of the information to criminally investigate or prosecute any alcohol or drug abuse patient.[facility] CenterIn the event this information is protected by the Federal Confidentiality of Alcohol and Drug Abuse Patient Records regulations: The Federal rules restrict any use of the information to criminally investigate or prosecute any alcohol or drug abuse patient.[facility] CenterIn the event this information is protected by the Federal Confidentiality of Alcohol and Drug Abuse Patient Records regulations: The Federal rules restrict any use of the information to criminally investigate or prosecute any alcohol or drug abuse patient.[facility] CenterIn the event this information is protected by the Federal Confidentiality of Alcohol and Drug Abuse Patient Records regulations: The Federal rules restrict any use of the information to criminally investigate or prosecute any alcohol or drug abuse patient.[facility] CenterIn the event this information is protected by the Federal Confidentiality of Alcohol and Drug Abuse Patient Records regulations: The Federal rules restrict any use of the information to criminally investigate or prosecute any alcohol or drug abuse patient.[facility] CenterIn the event this information is protected by the Federal Confidentiality of Alcohol and Drug Abuse Patient Records regulations: The Federal rules restrict any use of the information to criminally investigate or prosecute any alcohol or drug abuse patient.[facility] CenterIn the event this information is protected by the Federal Confidentiality of Alcohol and Drug Abuse Patient Records regulations: The Federal rules restrict any use of the information to criminally investigate or prosecute any alcohol or drug abuse patient.[facility] Reason for Visit (unrecogniz ed section and content) Reason Comments Pre-Op Exam Intraocular lens Cas culations Reason Comments Severe Cataract eval Reason Comments Request Outside Medical Records Reason Comments Patient Question Reason Comments Consult Reason Comments Schedule Surgery Courtesy call 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 Reason Comments Appointment Cardiology schedulin g to discuss TAVR TAVR Reason Comments Post-op (Ophthalmology) Left Eye Reason Comments Appointment Reason Comments Appointment Book Agent appt 04/28/2024 Specialty Diagnoses / Procedures Referred By Yessy t Referred To Contact Cardiology Diagnoses Aortic valve stenosis, etiology of cardiac valve disease unspecified Procedures CONSULT TO CARDIOLOGY OFFICE/OUTPATIENT [facility] 60 MINUTES Berta Rich PA-C [address] [address] [address] [facility] [address] [place] [address] Referral ID Status Reason Start Date Expiration Date V isits Requested Visits Authorized [id number] Closed PCP Requested Referral 04/23/2024 04/16/2025 1 [...] CNTRST MTRL W/WO CNTRST IMGES Kacy Jimenez, AIR QUALITY 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 [address] [place] [address] [facility] [place] [address] Referral ID Status Reason Start Date Expiration Date V isits Requested Visits Authorized [id number] Closed Auto-Generate d Referral 08/12/2024 10/11/2024 1 1 Reason Comments Patient Education Reason Comments Spirometry Specialty Diagnoses / Procedures Referred By Contac t Referred To Contact [facility] Diagnoses Severe aortic stenosis by prior echocardiogram Encounter for preprocedural cardiovascular examination Aortic valve disorder Procedures SPIROMETRY BASELINE ONLY SPMTRY W/VC EXPIRATORY PEDRO W/WO MXML VOL VNTJ Kacy Jimenez, AIR QUALITY 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 [address] [place] [id number] [facility] [place] [address] [place] [address] Referral ID Status Reason Start Date Expiration Date V isits Requested Visits Authorized [id number] Closed Auto-Generate d Referral 06/09/2024 07/09/2025 1 1 Specialty Diagnoses / Procedures Referred By Contac t Referred To Contact [facility] Diagnoses Severe aortic stenosis by prior echocardiogram Encounter for preprocedural cardiovascular examination Aortic valve disorder Procedures LUNG DIFFUSION CAPACITY (DLCO) DIFFUSING CAPACITY Kacy Jimenez, AIR QUALITY 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 [address] [place] [id number] [place] [address] Referral ID Status Reason Start Date Expiration Date V isits Requested Visits Authorized [id number] Closed Auto-Generate d Referral 06/09/2024 07/09/2025 1 1 Reason Comments Radiology NM Specialty Diagnoses / Procedures Referred By Contac t Referred To Contact [facility] Diagnoses Severe aortic stenosis by prior echocardiogram Encounter for preprocedural cardiovascular examination Aortic valve disorder Procedures NM SPECT/CT CARDIAC AMYLOID RP LOCLZJ HENRY SPECT W/CT 1 AREA 1 DAY IMAGING Held, Kacy Bañuelos, AIR QUALITY 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 [address] [place] [address] Molecular [facility] Functional Imaging [address] [place] [address] Referral ID Status Reason Start Date Expiration Date V isits Requested Visits Authorized [id number] Closed Auto-Generate d Referral 06/09/2024 07/09/2025 1 [...] Essential (primary) hypertension 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 [address] Phone: tel: [facility] [place] [address] Referral ID Status Reason Start Date Expiration Date V isits Requested Visits Authorized [id number] Closed Auto-Generate d Referral 01/06/2025 03/07/2025 1 [...] BE BASED ON THE PRIMARY CLINICAL RECORDS. [employer] provides no warranty or guarantee of the accuracy or completeness of information in this document.
[2025-08-26 09:31] LABS: Hematocrit 29.5 % (37-47); Hemoglobin 10.9 g/dL (12.0-15.0); Immature Granulocytes Count 0.010 X10^3/uL (0.0-0.0); Mean Corp Hgb Conc 36.9 g/dL (32-36); Mean Corpuscular Volume 93.1 fL (81-99); Mean Platelet Vol. 10.4 fl (6.2-12.0); NRBC Flagged by Analyzer 0 % (0-5); Platelet Count 186 K/mm3 (150-450); RBC Distribution Width CV 13.7 % (11.6-14.6); RBC Distribution Width SD 44.6 fl (35.1-43.9); Red Blood Count 3.17 M/mm3 (4.2-5.4); White Blood Count 5.8 K/mm3 (4.4-11.0)
[2025-08-26 10:23] LABS: Anion Gap 8 (5-15); BUN 23 mg/dL (4-19); BUN/Creat Ratio 30.7 RATIO (10-20); Calcium,Total 8.7 mg/dL (7.6-11.0); Carbon Dioxide 26.4 mmol/L (21.0-32.0); Chloride 103 mmol/L (98-108); Glucose 94 mg/dL (70-99); Potassium 4.3 mmol/L (3.3-5.1)
== END ==
LOC: OLS.WHLTCC 05:00
PROVIDERS: PCP Family Medicine Geriatric Medicine; Visit Provider Internal Medicine
DX: D64.9 Anemia, unspecified (principal); I25.10 Atherosclerotic heart disease of native coronary artery without angina pectoris
CPT/HCPCS: 36415; 80048; 85025

== ENCOUNTER → 2025-09-16 | Outpatient (REF) | payer MEDICARE, SELFPAY ==
[2025-09-16 10:21] LABS: Hematocrit 32.2 % (37-47); Hemoglobin 10.9 g/dL (12.0-15.0); Immature Granulocytes Count 0.030 X10^3/uL (0.0-0.0); Mean Corp Hgb Conc 33.9 g/dL (32-36); Mean Corpuscular Volume 91.0 fL (81-99); Mean Platelet Vol. 10.6 fl (6.2-12.0); NRBC Flagged by Analyzer 0 % (0-5); Platelet Count 166 K/mm3 (150-450); RBC Distribution Width CV 14.3 % (11.6-14.6); RBC Distribution Width SD 47.8 fl (35.1-43.9); Red Blood Count 3.54 M/mm3 (4.2-5.4); White Blood Count 6.2 K/mm3 (4.4-11.0)
[2025-09-16 10:45] LABS: AST(SGOT) 53 U/L (<=31); Alanine Aminotransfer ALT/SGPT 14 U/L (<=34); Albumin, Serum 3.4 g/dL (3.4-4.8); Alkaline Phosphatase 102 U/L (35-104); Anion Gap 9 (5-15); BUN 20 mg/dL (4-19); BUN/Creat Ratio 27.3 RATIO (10-20); Calcium,Total 9.0 mg/dL (7.6-11.0); Carbon Dioxide 25.7 mmol/L (21.0-32.0); Chloride 102 mmol/L (98-108); Globulin 2.7 g/dL (2.2-4.2); Glucose 92 mg/dL (70-99); Potassium 3.9 mmol/L (3.3-5.1)
[2025-10-05 08:37] VITALS: BMI 28.1
== END ==
LOC: OLS.WHLTSB 05:25
PROVIDERS: PCP Family Medicine Geriatric Medicine; Visit Provider Internal Medicine
DX: I25.10 Atherosclerotic heart disease of native coronary artery without angina pectoris (principal)
CPT/HCPCS: 36415; 80053; 85025